=== PATIENT | female | born 1975 | race Two or more races ===

== ENCOUNTER 2018-07-21 14:24 | Emergency (ER) | payer OTHER ==
[~2018-07-21] VITALS: Ht 161.3 cm; Wt 95.3 kg
[~2018-07-21 14:24] MED LIST: ATOR40TA59 PO; INSU100I13 SQ; LISI1TAB7 PO; MAG355OR11 PO
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
[2018-07-21 17:56] VITALS: BP 144/81
== END 2018-07-21 18:14 | disposition home or self-care (01) ==
LOC: ER 14:24
DX: S29.012A Strain of muscle and tendon of back wall of thorax, initial encounter (principal); M54.2 Cervicalgia; E11.9 Type 2 diabetes mellitus without complications; E78.00 Pure hypercholesterolemia, unspecified; I10 Essential (primary) hypertension; Z90.49 Acquired absence of other specified parts of digestive tract; Z90.710 Acquired absence of both cervix and uterus; Z91.030 Bee allergy status; Z88.5 Allergy status to narcotic agent; Z91.013 Allergy to seafood; V49.49XA Driver injured in collision with other motor vehicles in traffic accident, initial encounter; Y93.I9 Activity, other involving external motion; Y92.488 Other paved roadways as the place of occurrence of the external cause; Y99.8 Other external cause status
CPT/HCPCS: 72072; 72125; 99284-25

== ENCOUNTER 2021-02-06 18:44 | Inpatient (IN) | payer SELFPAY ==
[~2021-02-06] VITALS: Ht 162.6 cm; Wt 89.3 kg
[~2021-02-06 18:44] MED LIST changes: +LISI1TAB20 PO; -LISI1TAB7 PO
[2021-02-06] MEDS ORDERED: ONDANSETRON ODT 4 MG TAB.RAPDIS. PO ONE (23:30)
[2021-02-07] MEDS ORDERED: IV NORMAL SALINE 1000ML BAG 1,000 ML IV ONE ×2 (02:30→06:30)
[2021-02-07] MEDS ORDERED: HALOPERIDOL LACTATE 5 MG/ML VIAL. IM ONE (02:30)
[2021-02-07 04:02] LABS: BASO % 0 % (0-3); EOS % 0 % (0-3); HEMATOCRIT 48.4 % (36.0-47.0); HEMOGLOBIN 15.6 g/dL (12.0-15.5); LYMPH # 0.8 x10^3/uL (1.0-4.8); LYMPH % 10 % (24-48); MEAN CORPUSCULAR HEMOGLOBIN 30 pg (25-35); MEAN CORPUSCULAR HGB CONC 32 g/dL (31-37); MEAN CORPUSCULAR VOLUME 93 fL (79-100); MONO # 0.4 x10^3/uL (0.0-1.1); MONO % 5 % (0-9); NEUT # 6.4 x10^3/uL (1.8-7.7); NEUT % 85 % (31-73); PLATELET COUNT 208 x10^3/uL (140-400); RED BLOOD COUNT 5.21 x10^6/uL (3.50-5.40); RED CELL DISTRIBUTION WIDTH 13.7 % (11.5-14.5); WHITE BLOOD COUNT 7.5 x10^3/uL (4.0-11.0)
--- NOTE | 2021-02-07 04:07 | EKG ---
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
[2021-02-07] MEDS ORDERED: HYDROmorphone 2 MG/ML VIAL IVP ONE (04:30)
[2021-02-07 05:30] LABS: ALBUMIN 4.1 g/dL (3.4-5.0); CALCIUM 8.9 mg/dL (8.5-10.1); CREATININE 1.2 mg/dL (0.6-1.0); GFR 48.6; TOTAL BILIRUBIN 0.4 mg/dL (0.2-1.0); TOTAL PROTEIN 8.4 g/dL (6.4-8.2)
[2021-02-07 05:31] LABS: POTASSIUM 4.5 mmol/L (3.5-5.1)
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
[2021-02-07] MEDS ORDERED: POTASSIUM CHLORIDE 10MEQ 100 ML IV PRN ×3 (06:00)
[2021-02-07] MEDS ORDERED: INSULIN REGULAR VIAL 100 UNIT in IV NORMAL SALINE 100ML 100 ML IV PRN (06:00)
[2021-02-07] MEDS ORDERED: INSULIN,REGULAR 100 UNIT DRIP 100 ML IV ONE (06:30)
[2021-02-07 07:00] VITALS: BP 154/77
[2021-02-07 07:04] LABS: ISTAT BE VENOUS -5 mmol/L (0-3); ISTAT HCO3 VEN 21 mmol/L (24-28); ISTAT PCO2 VEN 38 mmHg (41-51); ISTAT PH VEN 7.34 (7.32-7.42); ISTAT PO2 VEN 115 mmHg (20-40); ISTAT SAT O2 VEN 98 %; ISTAT TCO2 VEN 22 mmol/L (21-32)
--- NOTE | 2021-02-07 08:43 | PDOC1 ---
History and Physical Date of Service: DOS: DATE: 02/07/21 TIME: 08:39 Chief Complaint: Chief Complain: Shortness of breath History of Present Illness: HPI: 46 year old female who presents with nausea/vomiting since 7 AM yesterday morning. Patient states that her recently tested positive for Covid. She states that he "coughed in my face because he thought it was funny." She reports subjective fevers and chills and nausea/vomiting. Denies sore throat, cough, shortness of breath. No chest pain. Does have some upper abdominal discomfort after vomiting, that she attributes to muscular strain. She is not vaccinated for Covid. Past Medical/Surgical History: PMH/PSH: Past Medical History: Diabetes-Type II, High Cholesterol, Hypertension Past Surgical History: Cholecystectomy, Hysterectomy, breast augmentation, abdominoplasty, right knee, LT [facility] Allergies: Allergies: Coded Allergies: venom-honey bee (Verified Allergy, Severe, Shortness of Air, 04/21/15) oxycodone (Unverified Allergy, Intermediate, Itching, 04/21/15) shellfish derived (Unverified Allergy, Intermediate, Itching, 04/21/15) Family History: Family History: Reviewed with no relevant findings Social History: Social History: Smoking Status: Never Smoker Alcohol Use: Occasionally Drug Use: None Current Medications: Current Medications Current Medications Ondansetron HCl (Zofran Odt) 4 mg 1X ONCE PO Last administered on 02/06/21at 23:57; Start 02/06/21 at 23:30; Stop 02/06/21 at 23:31; Status DC Haloperidol Lactate (Haldol Inj) 2.5 mg 1X ONCE IM ; Start 02/07/21 at 02:30; Stop 02/07/21 at 03:56; Status DC Sodium Chloride 1,000 ml @ 1,000 mls/hr 1X ONCE IV Last administered on 02/07/21at 03:41; Start 02/07/21 at 02:30; Stop 02/07/21 at 03:29; Status DC Hydromorphone HCl (Dilaudid) 1 mg 1X ONCE IVP Last administered on 02/07/21at 04:13; Start 02/07/21 at 04:30; Stop 02/07/21 at 04:31; Status DC Sodium Chloride 1,000 ml @ 1,000 mls/hr 1X ONCE IV ; Start 02/07/21 at 06:30; Stop 02/07/21 at 07:29; Status DC Insulin Human Regular 100 unit/ Sodium Chloride 101 ml @ 0 mls/hr CONT PRN PRN IV PER PROTOCOL; Start 02/07/21 at 06:00 Potassium Chloride/Water 100 ml @ 100 mls/hr PRN Q1HR PRN IV SEE COMMENTS; Start 02/07/21 at 06:00 Potassium Chloride/Water 100 ml @ 100 mls/hr PRN Q1HR PRN IV SEE COMMENTS; Start 02/07/21 at 06:00 Potassium Chloride/Water 100 ml @ 100 mls/hr PRN Q1HR PRN IV SEE COMMENTS; Start 02/07/21 at 06:00 Insulin Human Regular 100 ml @ 10 mls/hr 1X ONCE IV ; Start 02/07/21 at 06:30; Stop 02/07/21 at 16:29 Active Scripts Active Reported Lantus Solostar (Insulin Glargine,Hum.rec.anlog) 100 Unit/1 Ml Insuln.pen 15 Unit SQ QHS Maalox Advanced Suspension (Mag Hydrox/Al Hydrox/Simeth) 770 Ml Oral.susp 770 Ml PO PRN PRN Lisinopril-Hctz 20-25 Mg Tab (Lisinopril/Hydrochlorothiazide) 1 Each Tablet 1 Tab PO DAILY Atorvastatin Calcium 40 Mg Tablet 40 Mg PO HS ROS: Review of Systems Review of System REVIEW OF SYSTEMS: GENERAL: Denies weakness SKIN: No bruising, hair changes or rashes. EYES: No blurred, double or loss of vision. NOSE AND THROAT: No history of nosebleeds, hoarseness or sore throat. HEART: No history of palpitations, chest pain or shortness of breath on exertion. LUNGS: Denies cough, hemoptysis, wheezing or shortness of breath. GASTROINTESTINAL: Denies changes in appetite, nausea, vomiting, diarrhea or constipation. GENITOURINARY: No history of frequency, urgency, hesitancy or nocturia. NEUROLOGIC: Denies history of numbness, tingling, or tremor. PSYCHIATRIC: No history of panic, anxiety or depression. ENDOCRINE: No history of heat or cold intolerance, polyuria or polydipsia. EXTREMITIES: Denies joint pain, pain on walking or stiffness. Physical Exam: Vital Signs: Vital Signs Date Time Temp Pulse Resp B/P (MAP) Pulse Ox O2 Delivery O2 Flow Rate FiO2 02/07/21 07:00 97.7 97 20 154/77 (102) Room Air 97.7 02/07/21 06:05 90 Physcial Exam: General: Well developed, well nourished, no acute distress, obese HEENT: Pupils equally round and reactive to light, EOMI, no discharge, normal conjunctiva Neck: Supple, no nuchal rigidity, no JVD, trachea midline, no tenderness Cardiac: RRR, no murmurs, no gallops, no rubs Chest/Lungs: CTAB, no wheeze, no rhonchi, no crackles Abdomen: soft, non-distended, no guarding, no peritoneal signs, non-tender Back: No tenderness Extremities: no edema, pulses intact, non-tender,capillary refill <3 sec bilateral upper and lower extremities, Neuro: Alert and oriented x 4, no focal deficits, normal speech Labs: Labs: Laboratory Tests Test 02/06/21 23:58 02/07/21 03:25 02/07/21 06:40 02/07/21 07:00 SARS-CoV-2 Antigen (Rapid) Positive (NEGATIVE) White Blood Count 7.5 x10^3/uL (4.0-11.0) Red Blood Count 5.21 x10^6/uL (3.50-5.40) Hemoglobin 15.6 g/dL (12.0-15.5) Hematocrit 48.4 % (36.0-47.0) Mean Corpuscular Volume 93 fL (79-100) Mean Corpuscular Hemoglobin 30 pg (25-35) Mean Corpuscular Hemoglobin Concent 32 g/dL (31-37) Red Cell Distribution Width 13.7 % (11.5-14.5) Platelet Count 208 x10^3/uL (140-400) Neutrophils (%) (Auto) 85 % (31-73) Lymphocytes (%) (Auto) 10 % (24-48) Monocytes (%) (Auto) 5 % (0-9) Eosinophils (%) (Auto) 0 % (0-3) Basophils (%) (Auto) 0 % (0-3) Neutrophils # (Auto) 6.4 x10^3/uL (1.8-7.7) Lymphocytes # (Auto) 0.8 x10^3/uL (1.0-4.8) Monocytes # (Auto) 0.4 x10^3/uL (0.0-1.1) Eosinophils # (Auto) 0.0 x10^3/uL (0.0-0.7) Basophils # (Auto) 0.0 x10^3/uL (0.0-0.2) Sodium Level 128 mmol/L (136-145) Potassium Level 4.5 mmol/L (3.5-5.1) Chloride Level 95 mmol/L (98-107) Carbon Dioxide Level 16 mmol/L (21-32) Anion Gap 17 (6-14) Blood Urea Nitrogen 17 mg/dL (7-20) Creatinine 1.2 mg/dL (0.6-1.0) Estimated GFR (Cockcroft-Gault) 48.6 BUN/Creatinine Ratio 14 (6-20) Glucose Level 353 mg/dL (70-99) Calcium Level 8.9 mg/dL (8.5-10.1) Total Bilirubin 0.4 mg/dL (0.2-1.0) Aspartate Amino Transf (AST/SGOT) 29 U/L (15-37) Alanine Aminotransferase (ALT/SGPT) 25 U/L (14-59) Alkaline Phosphatase 74 U/L (46-116) Troponin I Quantitative < 0.017 ng/mL (0.000-0.055) Total Protein 8.4 g/dL (6.4-8.2) Albumin 4.1 g/dL (3.4-5.0) Albumin/Globulin Ratio 1.0 (1.0-1.7) Lipase 55 U/L (73-393) Phosphorus Level 3.9 mg/dL (2.6-4.7) Magnesium Level 2.1 mg/dL (1.8-2.4) Bedside Venous pH 7.34 (7.32-7.42) Bedside Venous pCO2 38 mmHg (41-51) Bedside Venous pO2 115 mmHg (20-40) Venous Blood HCO3 21 mmol/L (24-28) POC Venous O2 Saturation (Orion) 98 % Bedside FiO2 21.0 Test 02/07/21 07:52 Glucose (Fingerstick) 356 mg/dL (70-99) Laboratory Tests Test 02/06/21 23:58 7/31/21 03:25 02/07/21 06:40 02/07/21 07:00 SARS-CoV-2 Antigen (Rapid) Positive (NEGATIVE) White Blood Count 7.5 x10^3/uL (4.0-11.0) Red Blood Count 5.21 x10^6/uL (3.50-5.40) Hemoglobin 15.6 g/dL (12.0-15.5) Hematocrit 48.4 % (36.0-47.0) Mean Corpuscular Volume 93 fL (79-100) Mean Corpuscular Hemoglobin 30 pg (25-35) Mean Corpuscular Hemoglobin Concent 32 g/dL (31-37) Red Cell Distribution Width 13.7 % (11.5-14.5) Platelet Count 208 x10^3/uL (140-400) Neutrophils (%) (Auto) 85 % (31-73) Lymphocytes (%) (Auto) 10 % (24-48) Monocytes (%) (Auto) 5 % (0-9) Eosinophils (%) (Auto) 0 % (0-3) Basophils (%) (Auto) 0 % (0-3) Neutrophils # (Auto) 6.4 x10^3/uL (1.8-7.7) Lymphocytes # (Auto) 0.8 x10^3/uL (1.0-4.8) Monocytes # (Auto) 0.4 x10^3/uL (0.0-1.1) Eosinophils # (Auto) 0.0 x10^3/uL (0.0-0.7) Basophils # (Auto) 0.0 x10^3/uL (0.0-0.2) Sodium Level 128 mmol/L (136-145) Potassium Level 4.5 mmol/L (3.5-5.1) Chloride Level 95 mmol/L (98-107) Carbon Dioxide Level 16 mmol/L (21-32) Anion Gap 17 (6-14) Blood Urea Nitrogen 17 mg/dL (7-20) Creatinine 1.2 mg/dL (0.6-1.0) Estimated GFR (Cockcroft-Gault) 48.6 BUN/Creatinine Ratio 14 (6-20) Glucose Level 353 mg/dL (70-99) Calcium Level 8.9 mg/dL (8.5-10.1) Total Bilirubin 0.4 mg/dL (0.2-1.0) Aspartate Amino Transf (AST/SGOT) 29 U/L (15-37) Alanine Aminotransferase (ALT/SGPT) 25 U/L (14-59) Alkaline Phosphatase 74 U/L (46-116) Troponin I Quantitative < 0.017 ng/mL (0.000-0.055) Total Protein 8.4 g/dL (6.4-8.2) Albumin 4.1 g/dL (3.4-5.0) Albumin/Globulin Ratio 1.0 (1.0-1.7) Lipase 55 U/L (73-393) Phosphorus Level 3.9 mg/dL (2.6-4.7) Magnesium Level 2.1 mg/dL (1.8-2.4) Bedside Venous pH 7.34 (7.32-7.42) Bedside Venous pCO2 38 mmHg (41-51) Bedside Venous pO2 115 mmHg (20-40) Venous Blood HCO3 21 mmol/L (24-28) POC Venous O2 Saturation (Orion) 98 % Bedside FiO2 21.0 Test 02/07/21 07:52 Glucose (Fingerstick) 356 mg/dL (70-99) Images: Images No recent images to review Assessment/Plan Assessment/Plan COVID-19 positive infection Tractable nausea vomiting DKA Anion gap metabolic acidosis Acute electrolyte derangementhyponatremia, hypochloremia due to volume depletion Hyperglycemia uncontrolled BOB due to vasomotor nephropathy Erythrocytosis Admit to hospitalist for further services ABG on admission pending urine and blood ketones Pending plasma osmolarity Continue serial inspections and examination for sources that caused ketoacidotic state Continue IV insulin starting at 0.1 units per kg When glucose is less than 200, AG is closed, patient able to eat, and HCO3 greater than 15, then transition with subcu insulin 0.1 units/kg every 2 hours for at least 2 hours Continue IV fluids of 1 to 1.5 L/h until a total of 5 L is replenished Switch to one half NS at half the rate if NA is normal or elevated As needed D50 W or add D5 to IV fluids if Accu-Cheks are less than 200 Maintain potassium between 3.5-5, if potassium falls below 3.3, stop insulin and add 40 mEq/h of potassium Maintained p.o. 3 greater than 1.0 If arterial pH is below 6.9, give 100 mEq of sodium bicarb +20 mEq of potassium Every 2-4 hours BMP and a be checked until stable Every hour Accu-Cheks while on insulin O2 supplementation if patient develops hypoxia SCD for DVT prophylaxis Protonix GI prophylaxis ADA diet Full code Discussed with RN and SW Disposition inpatient management as above Surrogate decision maker is Brian Whitmore Justifications for Admission Other Justification SRIKANTH DAVIS MD Feb 07, 2021 08:43
[2021-02-07] MEDS ORDERED: DEXTROSE 50% 25 GM / 50ML DISP.SYRIN. IV PRN ×2 (08:45→17:00)
[2021-02-07] MEDS ORDERED: DOCUSATE SODIUM 100 MG CAPSULE. PO PRN (08:45)
[2021-02-07] MEDS: IV NORMAL SALINE 1000ML BAG 1,000 ML IV SCH ×4 (08:45→22:52)
[2021-02-07] MEDS ORDERED: SENNOSIDES 8.6 MG TABLET PO PRN (08:45)
[2021-02-07 09:46] LABS: CALCIUM 8.6 mg/dL (8.5-10.1); CREATININE 1.4 mg/dL (0.6-1.0); GFR 40.7; POTASSIUM 4.3 mmol/L (3.5-5.1)
[2021-02-07] MEDS ORDERED: INSU100I17 SQ (10:52)
[2021-02-07] MEDS ORDERED: LISI-517 PO (10:52)
[2021-02-07 11:00] VITALS: BP 126/59
[2021-02-07] MEDS: PROCHLORPERAZINE 10 MG/2 ML VIAL. IV PRN ×3 (11:34→23:57)
[2021-02-07 14:52] VITALS: BP 104/53
[2021-02-07 15:36] LABS: CALCIUM 7.8 mg/dL (8.5-10.1); CREATININE 1.3 mg/dL (0.6-1.0); GFR 44.3; POTASSIUM 3.8 mmol/L (3.5-5.1)
[2021-02-07] MEDS: INSULIN GLARGINE SYRINGE. SQ SCH (17:59)
[2021-02-07 19:00] VITALS: BP 194/95
[2021-02-07] MEDS: ONDANSETRON PF 4 MG/2 ML VIAL. IVP PRN ×2 (19:36→20:01)
[2021-02-07] MEDS ORDERED: ONDANSETRON PF 4 MG/2 ML VIAL. IVP ONE (20:00)
[2021-02-07] MEDS: INSULIN LISPRO 300 UNITS/3 ML VIAL. SQ SCH (20:05)
[2021-02-07 20:53] LABS: CALCIUM 8.2 mg/dL (8.5-10.1); CREATININE 1.1 mg/dL (0.6-1.0); GFR 53.7; POTASSIUM 3.9 mmol/L (3.5-5.1)
[2021-02-07 23:00] VITALS: BP 170/84
[2021-02-07] MEDS: ACETAMINOPHEN 325 MG TABLET. PO PRN (23:57)
[2021-02-08] VITALS (11 sets, daily range): BP systolic 146–207; BP diastolic 70–97
[2021-02-08] MEDS: METOCLOPRAMIDE HCL 10 MG/2 ML VIAL. IVP PRN ×3 (01:04→16:58)
[2021-02-08] MEDS ORDERED: ACETAMINOPHEN 650 MG SUPP.RECT. PR PRN (01:45)
[2021-02-08] MEDS: ONDANSETRON PF 4 MG/2 ML VIAL. IVP PRN ×2 (03:44→20:08)
[2021-02-08] MEDS: IV NORMAL SALINE 1000ML BAG 1,000 ML IV SCH (04:05)
[2021-02-08] MEDS: INSULIN LISPRO 300 UNITS/3 ML VIAL. SQ SCH ×6 (04:08→20:06)
[2021-02-08 04:17] LABS: BILIRUBIN,URINE NEGATIVE (NEG); CLARITY,URINE CLEAR; COLOR,URINE YELLOW; NITRITE,URINE NEGATIVE (NEG); PH,URINE 5.5 (<5.0-8.0); PROTEIN,URINE 100 mg/dL (NEG-TRACE); UROBILINOGEN,URINE 0.2 mg/dL (0.2 mg/dL)
[2021-02-08] MEDS: LABETALOL 20 MG/4 ML DISP.SYRIN. IVP PRN ×5 (04:20→20:07)
[2021-02-08 04:35] LABS: BACTERIA,URINE FEW /HPF (0-FEW); RBC,URINE 20-40 /HPF (0-2)
[2021-02-08] MEDS: PROCHLORPERAZINE 10 MG/2 ML VIAL. IV PRN ×3 (07:41→21:08)
[2021-02-08 09:46] LABS: BASO % 0 % (0-3); EOS % 0 % (0-3); HEMOGLOBIN 14.3 g/dL (12.0-15.5); LYMPH % 16 % (24-48); MEAN CORPUSCULAR HEMOGLOBIN 30 pg (25-35); MEAN CORPUSCULAR HGB CONC 34 g/dL (31-37); MEAN CORPUSCULAR VOLUME 88 fL (79-100); MONO # 0.5 x10^3/uL (0.0-1.1); MONO % 8 % (0-9); NEUT # 4.6 x10^3/uL (1.8-7.7); NEUT % 75 % (31-73); PLATELET COUNT 203 x10^3/uL (140-400); RED BLOOD COUNT 4.77 x10^6/uL (3.50-5.40); RED CELL DISTRIBUTION WIDTH 13.3 % (11.5-14.5); WHITE BLOOD COUNT 6.1 x10^3/uL (4.0-11.0)
[2021-02-08 09:49] LABS: CALCIUM 7.8 mg/dL (8.5-10.1); PHOSPHORUS 2.4 mg/dL (2.6-4.7); POTASSIUM 3.8 mmol/L (3.5-5.1)
--- NOTE | 2021-02-08 09:53 | PDOC ---
[facility] PROGRESS NOTE Date of Service DOS: DATE: 02/08/21 TIME: 09:50 Chief Complaint Chief Complaint COVID-19 positive infection Tractable nausea vomiting DKA Anion gap metabolic acidosis Acute electrolyte derangementhyponatremia, hypochloremia due to volume depletion Hyperglycemia uncontrolled BOB due to vasomotor nephropathy Erythrocytosis 7 for diabetic gastroparesis Continue IV fluids and advance diet as tolerated. IV Compazine or Reglan for nausea ABG on admission pending urine and blood ketones Continue sliding-scale and Accu-Cheks every 4 hours When glucose is less than 200, AG is closed, patient able to eat, and HCO3 greater than 15, then transition with subcu insulin 0.1 units/kg every 2 hours for at least 2 hours Switch to one half NS at half the rate if NA is normal or elevated As needed D50 W or add D5 to IV fluids if Accu-Cheks are less than 200 Maintain potassium between 3.5-5, if potassium falls below 3.3, stop insulin and add 40 mEq/h of potassium Maintained p.o. 3 greater than 1.0 If arterial pH is below 6.9, give 100 mEq of sodium bicarb +20 mEq of potassium Every 2-4 hours BMP and a be checked until stable Every hour Accu-Cheks while on insulin O2 supplementation if patient develops hypoxia SCD for DVT prophylaxis Protonix GI prophylaxis ADA diet Full code Discussed with RN and SW Disposition inpatient management as above Surrogate decision maker is Brian Whitmore History of Present Illness History of Present Illness 46 year old female who presents with nausea/vomiting since 7 AM yesterday morning. Patient states that her recently tested positive for Covid. She states that he "coughed in my face because he thought it was funny." She reports subjective fevers and chills and nausea/vomiting. Denies sore throat, cough, shortness of breath. No chest pain. Does have some upper abdominal discomfort after vomiting, that she attributes to muscular strain. She is not vaccinated for Covid. 02/08/2021 No acute events overnight. Patient seen and examined bedside and resting comfortably. Continues to complain of nausea not able to tolerate any diet at this time. Saturating 98% on room air. Patient's chart, labs, images were reviewed and discussed with RN Vitals/I&O Vitals/I&O: Vital Signs Date Time Temp Pulse Resp B/P (MAP) Pulse Ox O2 Delivery O2 Flow Rate FiO2 02/08/21 09:17 87 183/93 (123) 02/08/21 07:30 99.0 24 98 Room Air 99.0 02/08/21 03:00 94.0 I & O 02/07/21 02/07/21 02/08/21 15:00 23:00 07:00 Intake Total 1000 ml 1000 ml 0 ml Output Total 852 ml Balance 1000 ml 1000 ml -852 ml Physical Exam General: Alert, Oriented X3, Cooperative Heart: Regular rate Lungs: Clear Abdomen: Normal bowel sounds Extremities: No clubbing, No edema Skin: No rashes, No significant lesion Labs Labs: Laboratory Tests Test 02/07/21 10:35 02/07/21 11:27 02/07/21 12:38 02/07/21 13:45 Glucose (Fingerstick) 366 mg/dL (70-99) 340 mg/dL (70-99) 319 mg/dL (70-99) 279 mg/dL (70-99) Test 02/07/21 14:39 02/07/21 15:00 02/07/21 15:45 02/07/21 16:40 Glucose (Fingerstick) 213 mg/dL (70-99) 166 mg/dL (70-99) 127 mg/dL (70-99) Sodium Level 139 mmol/L (136-145) Potassium Level 3.8 mmol/L (3.5-5.1) Chloride Level 104 mmol/L (98-107) Carbon Dioxide Level 26 mmol/L (21-32) Anion Gap 9 (6-14) Blood Urea Nitrogen 24 mg/dL (7-20) Creatinine 1.3 mg/dL (0.6-1.0) Estimated GFR (Cockcroft-Gault) 44.3 Glucose Level 194 mg/dL (70-99) Calcium Level 7.8 mg/dL (8.5-10.1) Test 02/07/21 19:39 02/07/21 20:30 02/07/21 23:51 02/08/21 03:40 Glucose (Fingerstick) 256 mg/dL (70-99) 260 mg/dL (70-99) Sodium Level 135 mmol/L (136-145) Potassium Level 3.9 mmol/L (3.5-5.1) Chloride Level 98 mmol/L (98-107) Carbon Dioxide Level 25 mmol/L (21-32) Anion Gap 12 (6-14) Blood Urea Nitrogen 20 mg/dL (7-20) Creatinine 1.1 mg/dL (0.6-1.0) Estimated GFR (Cockcroft-Gault) 53.7 Glucose Level 264 mg/dL (70-99) Calcium Level 8.2 mg/dL (8.5-10.1) Urine Collection Type Unknown Urine Color Yellow Urine Clarity Clear Urine pH 5.5 (<5.0-8.0) Urine Specific [place] 1.020 (1.000-1.030) Urine Protein 100 mg/dL (NEG-TRACE) Urine Glucose (UA) >=1000 mg/dL (NEG) Urine Ketones (Stick) >=80 mg/dL (NEG) Urine Blood Moderate (NEG) Urine Nitrite Negative (NEG) Urine Bilirubin Negative (NEG) Urine Urobilinogen Dipstick 0.2 mg/dL (0.2 mg/dL) Urine Leukocyte Esterase Negative (NEG) Urine RBC 20-40 /HPF (0-2) Urine WBC 1-4 /HPF (0-4) Urine Squamous Epithelial Cells Few /LPF Urine Bacteria Few /HPF (0-FEW) Test 02/08/21 03:51 02/08/21 07:47 Glucose (Fingerstick) 247 mg/dL (70-99) 225 mg/dL (70-99) Assessment and Plan Assessmemt and Plan Problems Medical Problems: (1) Ketoacidosis Status: Acute Comment Review of Relevant I have reviewed the following items mazin (where applicable) has been applied. Medications: Current Medications Medications (Trade) Dose Ordered Sig/Pepe Route PRN Reason Start Time Stop Time Status Last Admin Dose Admin Insulin Glargine (Lantus Syringe) 5 unit BID SQ 02/07/21 17:00 02/07/21 17:59 Insulin Human Lispro (HumaLOG) 0-7 UNITS Q4HRS SQ 02/07/21 20:00 02/08/21 00:50 DC 02/08/21 00:00 Ondansetron HCl (Zofran) 4 mg 1X ONCE IVP 02/07/21 20:00 02/07/21 20:07 DC 02/07/21 20:06 Insulin Human Lispro (HumaLOG) 0-9 UNITS Q4HRS SQ 02/08/21 04:00 02/08/21 08:04 Metoclopramide HCl (Reglan Vial) 10 mg PRN Q6HRS PRN IVP NAUSEA/VOMITING 3RD CHOICE 02/08/21 00:45 02/08/21 01:04 Labetalol HCl (Normodyne Iv Push) 10 mg PRN Q2HR PRN IVP HYPERTENSION 02/08/21 00:45 02/08/21 07:55 Justifications for Admission Other Justification SRIKANTH DAVIS MD Feb 08, 2021 09:53
[2021-02-08] MEDS: INSULIN GLARGINE SYRINGE. SQ SCH ×2 (10:24→21:08)
[2021-02-08] MEDS: ENALAPRILAT 1.25 MG/ML VIAL. IVP SCH (17:00)
[2021-02-08] MEDS: ATORVASTATIN CALCIUM 40 MG TABLET. PO SCH (21:05)
[2021-02-08] MEDS: CARVEDILOL 6.25 MG TABLET. PO SCH (21:05)
[2021-02-09] VITALS (7 sets, daily range): BP systolic 137–210; BP diastolic 65–90
[2021-02-09] MEDS: METOCLOPRAMIDE HCL 10 MG/2 ML VIAL. IVP PRN ×3 (00:03→21:15)
[2021-02-09] MEDS: ENALAPRILAT 1.25 MG/ML VIAL. IVP SCH ×3 (00:09→13:42)
[2021-02-09] MEDS: INSULIN LISPRO 300 UNITS/3 ML VIAL. SQ SCH ×9 (00:11→20:00)
[2021-02-09 01:08] LABS: HEMOGLOBIN A1C 6.6 % (4.8-5.6)
[2021-02-09] MEDS: PROCHLORPERAZINE 10 MG/2 ML VIAL. IV PRN ×2 (04:05→14:57)
[2021-02-09] MEDS: LABETALOL 20 MG/4 ML DISP.SYRIN. IVP PRN (04:13)
[2021-02-09] MEDS: ONDANSETRON PF 4 MG/2 ML VIAL. IVP PRN ×2 (05:48→12:35)
[2021-02-09] MEDS: IV NORMAL SALINE 1000ML BAG 1,000 ML IV SCH ×2 (07:36→14:59)
[2021-02-09] MEDS ORDERED: LISINOPRIL 5 MG TABLET. PO SCH (09:00)
[2021-02-09] MEDS: CARVEDILOL 6.25 MG TABLET. PO SCH ×2 (09:48→17:42)
[2021-02-09] MEDS: ENOXAPARIN 40 MG/0.4 ML SYRINGE. SQ SCH ×2 (09:49→21:16)
[2021-02-09 09:57] LABS: BASO % 0 % (0-3); EOS % 0 % (0-3); HEMATOCRIT 41.6 % (36.0-47.0); HEMOGLOBIN 14.2 g/dL (12.0-15.5); LYMPH # 0.7 x10^3/uL (1.0-4.8); LYMPH % 13 % (24-48); MEAN CORPUSCULAR HEMOGLOBIN 30 pg (25-35); MEAN CORPUSCULAR HGB CONC 34 g/dL (31-37); MEAN CORPUSCULAR VOLUME 87 fL (79-100); MONO # 0.5 x10^3/uL (0.0-1.1); MONO % 9 % (0-9); NEUT # 4.4 x10^3/uL (1.8-7.7); NEUT % 79 % (31-73); PLATELET COUNT 198 x10^3/uL (140-400); RED BLOOD COUNT 4.78 x10^6/uL (3.50-5.40); RED CELL DISTRIBUTION WIDTH 13.2 % (11.5-14.5); WHITE BLOOD COUNT 5.6 x10^3/uL (4.0-11.0)
[2021-02-09] MEDS: INSULIN GLARGINE SYRINGE. SQ SCH ×2 (10:14→21:18)
[2021-02-09 10:26] LABS: CREATININE 0.9 mg/dL (0.6-1.0); GFR 67.7; MAGNESIUM 2.1 mg/dL (1.8-2.4); POTASSIUM 3.5 mmol/L (3.5-5.1)
--- NOTE | 2021-02-09 13:07 | PDOC ---
[facility] PROGRESS NOTE Date of Service DOS: DATE: 02/09/21 TIME: 13:04 Chief Complaint Chief Complaint COVID-19 positive infection Tractable nausea vomiting DKA Anion gap metabolic acidosis Acute electrolyte derangementhyponatremia, hypochloremia due to volume depletion Hyperglycemia uncontrolled BOB due to vasomotor nephropathy Erythrocytosis 7 for diabetic gastroparesis Continue IV fluids and advance diet as tolerated. IV Compazine or Reglan for nausea ABG on admission pending urine and blood ketones Continue sliding-scale and Accu-Cheks every 4 hours When glucose is less than 200, AG is closed, patient able to eat, and HCO3 greater than 15, then transition with subcu insulin 0.1 units/kg every 2 hours for at least 2 hours Switch to one half NS at half the rate if NA is normal or elevated As needed D50 W or add D5 to IV fluids if Accu-Cheks are less than 200 Maintain potassium between 3.5-5, if potassium falls below 3.3, stop insulin and add 40 mEq/h of potassium Maintained p.o. 3 greater than 1.0 If arterial pH is below 6.9, give 100 mEq of sodium bicarb +20 mEq of potassium Every 2-4 hours BMP and a be checked until stable Every hour Accu-Cheks while on insulin O2 supplementation if patient develops hypoxia SCD for DVT prophylaxis Protonix GI prophylaxis ADA diet Full code Discussed with RN and SW Disposition inpatient management as above Surrogate decision maker is Brian Whitmore History of Present Illness History of Present Illness 46 year old female who presents with nausea/vomiting since 7 AM yesterday morning. Patient states that her recently tested positive for Covid. She states that he "coughed in my face because he thought it was funny." She reports subjective fevers and chills and nausea/vomiting. Denies sore throat, cough, shortness of breath. No chest pain. Does have some upper abdominal discomfort after vomiting, that she attributes to muscular strain. She is not vaccinated for Covid. 02/08/2021 No acute events overnight. Patient seen and examined bedside and resting comfortably. Continues to complain of nausea not able to tolerate any diet at this time. Saturating 98% on room air. Patient's chart, labs, images were reviewed and discussed with RN 02/09/2021: Afebrile, currently breathing on room air. Still with complaints of nausea and vomiting x3 today. States that she has history of similar symptoms that have been mildly improved with IV Dilaudid. Discussed with patient that I will provide IV Dilaudid to help with her nausea, but she will not discharged on this medication. Will obtain 6-minute walk to evaluate oxygen requirements. Upon discharge, I recommend self quarantine for 10 days for resolution of her symptoms. Discussed with patient that she will discharge tomorrow. Vitals/I&O Vitals/I&O: Vital Signs Date Time Temp Pulse Resp B/P (MAP) Pulse Ox O2 Delivery O2 Flow Rate FiO2 02/09/21 11:00 98.9 78 18 162/76 (104) 97 Room Air 98.9 I & O 02/08/21 02/08/21 02/09/21 15:00 23:00 07:00 Intake Total 460 ml 240 ml Balance 460 ml 240 ml Physical Exam General: Alert, Oriented X3, Cooperative Heart: Regular rate Lungs: Clear Abdomen: Normal bowel sounds Extremities: No clubbing, No edema Skin: No rashes, No significant lesion Labs Labs: Laboratory Tests Test 02/08/21 16:41 02/08/21 19:40 02/08/21 23:52 02/09/21 04:09 Glucose (Fingerstick) 273 mg/dL (70-99) 246 mg/dL (70-99) 268 mg/dL (70-99) 203 mg/dL (70-99) Test 02/09/21 07:28 02/09/21 09:35 02/09/21 11:38 Glucose (Fingerstick) 209 mg/dL (70-99) 225 mg/dL (70-99) White Blood Count 5.6 x10^3/uL (4.0-11.0) Red Blood Count 4.78 x10^6/uL (3.50-5.40) Hemoglobin 14.2 g/dL (12.0-15.5) Hematocrit 41.6 % (36.0-47.0) Mean Corpuscular Volume 87 fL (79-100) Mean Corpuscular Hemoglobin 30 pg (25-35) Mean Corpuscular Hemoglobin Concent 34 g/dL (31-37) Red Cell Distribution Width 13.2 % (11.5-14.5) Platelet Count 198 x10^3/uL (140-400) Neutrophils (%) (Auto) 79 % (31-73) Lymphocytes (%) (Auto) 13 % (24-48) Monocytes (%) (Auto) 9 % (0-9) Eosinophils (%) (Auto) 0 % (0-3) Basophils (%) (Auto) 0 % (0-3) Neutrophils # (Auto) 4.4 x10^3/uL (1.8-7.7) Lymphocytes # (Auto) 0.7 x10^3/uL (1.0-4.8) Monocytes # (Auto) 0.5 x10^3/uL (0.0-1.1) Eosinophils # (Auto) 0.0 x10^3/uL (0.0-0.7) Basophils # (Auto) 0.0 x10^3/uL (0.0-0.2) Sodium Level 133 mmol/L (136-145) Potassium Level 3.5 mmol/L (3.5-5.1) Chloride Level 99 mmol/L (98-107) Carbon Dioxide Level 24 mmol/L (21-32) Anion Gap 10 (6-14) Blood Urea Nitrogen 12 mg/dL (7-20) Creatinine 0.9 mg/dL (0.6-1.0) Estimated GFR (Cockcroft-Gault) 67.7 Glucose Level 226 mg/dL (70-99) Calcium Level 8.0 mg/dL (8.5-10.1) Magnesium Level 2.1 mg/dL (1.8-2.4) Assessment and Plan Assessmemt and Plan Problems Medical Problems: (1) Ketoacidosis Status: Acute Comment Review of Relevant I have reviewed the following items mazin (where applicable) has been applied. Medications: Current Medications Medications (Trade) Dose Ordered Sig/Pepe Route PRN Reason Start Time Stop Time Status Last Admin Dose Admin Enalaprilat (Vasotec Inj) 0.625 mg Q6HRS IVP 02/08/21 16:15 02/09/21 05:45 Insulin Glargine (Lantus Syringe) 15 unit BID SQ 02/08/21 21:00 02/09/21 10:14 Insulin Human Lispro (HumaLOG) 3 units TIDAC SQ 02/09/21 07:30 02/09/21 12:33 Carvedilol (Coreg) 6.25 mg BIDWMEALS PO 02/08/21 20:30 02/09/21 09:48 Atorvastatin Calcium (Lipitor) 40 mg HS PO 02/08/21 21:00 02/08/21 21:05 Lisinopril (Prinivil) 5 mg DAILY PO 02/09/21 09:00 02/09/21 13:04 DC 02/09/21 09:48 Sodium Chloride 1,000 ml @ 100 mls/hr Q10H IV 02/09/21 07:00 02/09/21 07:36 Enoxaparin Sodium (Lovenox 40mg Syringe) 40 mg BID SQ 02/09/21 09:00 02/09/21 09:49 Justifications for Admission Other Justification SANDI ALCARAZ MD Feb 09, 2021 13:07
--- NOTE | 2021-02-09 13:33 | NUR ---
SW following. Discussed with RN, pt from home with family, room air, clear liquid diet. COVID-19 positive. Med Assist following for self pay status. Dr. Mccauley advised possible discharge home today. SW will continue to follow.
[2021-02-09] MEDS: ACETAMINOPHEN 325 MG TABLET. PO PRN (14:57)
[2021-02-09] MEDS: HYDROmorphone 2 MG/ML VIAL IVP PRN (18:11)
[2021-02-09] MEDS: ATORVASTATIN CALCIUM 40 MG TABLET. PO SCH (21:15)
[2021-02-10] MEDS: INSULIN LISPRO 300 UNITS/3 ML VIAL. SQ SCH ×9 (00:08→20:00)
[2021-02-10] MEDS: ONDANSETRON PF 4 MG/2 ML VIAL. IVP PRN ×2 (00:11→08:48)
[2021-02-10 03:00] VITALS: BP 147/55
[2021-02-10] MEDS: IV NORMAL SALINE 1000ML BAG 1,000 ML IV SCH ×3 (03:59→23:13)
[2021-02-10] MEDS: PROCHLORPERAZINE 10 MG/2 ML VIAL. IV PRN ×3 (04:04→23:41)
[2021-02-10 07:00] VITALS: BP 177/71
[2021-02-10 08:08] LABS: BASO % 0 % (0-3); EOS % 0 % (0-3); HEMATOCRIT 42.4 % (36.0-47.0); HEMOGLOBIN 14.6 g/dL (12.0-15.5); LYMPH # 0.8 x10^3/uL (1.0-4.8); LYMPH % 21 % (24-48); MEAN CORPUSCULAR HEMOGLOBIN 30 pg (25-35); MEAN CORPUSCULAR HGB CONC 34 g/dL (31-37); MEAN CORPUSCULAR VOLUME 88 fL (79-100); MONO # 0.3 x10^3/uL (0.0-1.1); MONO % 8 % (0-9); NEUT # 2.7 x10^3/uL (1.8-7.7); NEUT % 71 % (31-73); PLATELET COUNT 167 x10^3/uL (140-400); RED BLOOD COUNT 4.82 x10^6/uL (3.50-5.40); RED CELL DISTRIBUTION WIDTH 12.9 % (11.5-14.5); WHITE BLOOD COUNT 3.8 x10^3/uL (4.0-11.0)
[2021-02-10 08:14] LABS: CALCIUM 7.9 mg/dL (8.5-10.1); MAGNESIUM 2.2 mg/dL (1.8-2.4); POTASSIUM 3.5 mmol/L (3.5-5.1)
[2021-02-10] MEDS: ENOXAPARIN 40 MG/0.4 ML SYRINGE. SQ SCH ×2 (08:39→20:39)
[2021-02-10] MEDS: LISINOPRIL 5 MG TABLET. PO SCH (08:46)
[2021-02-10] MEDS: CARVEDILOL 6.25 MG TABLET. PO SCH ×2 (08:47→18:12)
[2021-02-10] MEDS: INSULIN GLARGINE SYRINGE. SQ SCH ×2 (08:55→20:40)
[2021-02-10 11:00] VITALS: BP 149/65
[2021-02-10] MEDS: ACETAMINOPHEN 325 MG TABLET. PO PRN ×2 (12:58→20:38)
[2021-02-10 15:00] VITALS: BP 129/67
--- NOTE | 2021-02-10 16:48 | PDOC ---
[facility] PROGRESS NOTE Date of Service DOS: DATE: 02/10/21 TIME: 16:46 Chief Complaint Chief Complaint COVID-19 positive infection Tractable nausea vomiting DKA Anion gap metabolic acidosis Acute electrolyte derangementhyponatremia, hypochloremia due to volume depletion Hyperglycemia uncontrolled BOB due to vasomotor nephropathy Erythrocytosis 7 for diabetic gastroparesis Continue IV fluids and advance diet as tolerated. IV Compazine or Reglan for nausea ABG on admission pending urine and blood ketones Continue sliding-scale and Accu-Cheks every 4 hours When glucose is less than 200, AG is closed, patient able to eat, and HCO3 greater than 15, then transition with subcu insulin 0.1 units/kg every 2 hours for at least 2 hours Switch to one half NS at half the rate if NA is normal or elevated As needed D50 W or add D5 to IV fluids if Accu-Cheks are less than 200 Maintain potassium between 3.5-5, if potassium falls below 3.3, stop insulin and add 40 mEq/h of potassium Maintained p.o. 3 greater than 1.0 If arterial pH is below 6.9, give 100 mEq of sodium bicarb +20 mEq of potassium Every 2-4 hours BMP and a be checked until stable Every hour Accu-Cheks while on insulin O2 supplementation if patient develops hypoxia SCD for DVT prophylaxis Protonix GI prophylaxis ADA diet Full code Discussed with RN and SW Disposition inpatient management as above Surrogate decision maker is Brian Whitmore History of Present Illness History of Present Illness 46 year old female who presents with nausea/vomiting since 7 AM yesterday morning. Patient states that her recently tested positive for Covid. She states that he "coughed in my face because he thought it was funny." She reports subjective fevers and chills and nausea/vomiting. Denies sore throat, cough, shortness of breath. No chest pain. Does have some upper abdominal discomfort after vomiting, that she attributes to muscular strain. She is not vaccinated for Covid. 02/08/2021 No acute events overnight. Patient seen and examined bedside and resting comfortably. Continues to complain of nausea not able to tolerate any diet at this time. Saturating 98% on room air. Patient's chart, labs, images were reviewed and discussed with RN 02/09/2021: Afebrile, currently breathing on room air. Still with complaints of nausea and vomiting x3 today. States that she has history of similar symptoms that have been mildly improved with IV Dilaudid. Discussed with patient that I will provide IV Dilaudid to help with her nausea, but she will not discharged on this medication. Will obtain 6-minute walk to evaluate oxygen requirements. Upon discharge, I recommend self quarantine for 10 days for resolution of her symptoms. Discussed with patient that she will discharge tomorrow. 02/10/2021: Patient febrile today with T-max 102.2 F. She still admits to nausea, denies any further vomiting. We will continue to provide supportive care and monitor for any recurrent fevers overnight. Patient continues to improve may discharge tomorrow to continue self-isolation. Vitals/I&O Vitals/I&O: Vital Signs Date Time Temp Pulse Resp B/P (MAP) Pulse Ox O2 Delivery O2 Flow Rate FiO2 02/10/21 15:00 100.8 80 18 129/67 (87) 95 Room Air 100.8 02/09/21 18:41 94.0 I & O 02/09/21 02/09/21 02/10/21 15:00 23:00 07:00 Intake Total 100 ml 200 ml Output Total 0 ml Balance 100 ml 200 ml Physical Exam General: Alert, Oriented X3, Cooperative Heart: Regular rate Lungs: Clear Abdomen: Normal bowel sounds Extremities: No clubbing, No edema Skin: No rashes, No significant lesion Labs Labs: Laboratory Tests Test 02/09/21 17:04 02/09/21 19:17 02/09/21 23:10 02/10/21 07:25 Glucose (Fingerstick) 149 mg/dL (70-99) 174 mg/dL (70-99) 260 mg/dL (70-99) White Blood Count 3.8 x10^3/uL (4.0-11.0) Red Blood Count 4.82 x10^6/uL (3.50-5.40) Hemoglobin 14.6 g/dL (12.0-15.5) Hematocrit 42.4 % (36.0-47.0) Mean Corpuscular Volume 88 fL (79-100) Mean Corpuscular Hemoglobin 30 pg (25-35) Mean Corpuscular Hemoglobin Concent 34 g/dL (31-37) Red Cell Distribution Width 12.9 % (11.5-14.5) Platelet Count 167 x10^3/uL (140-400) Neutrophils (%) (Auto) 71 % (31-73) Lymphocytes (%) (Auto) 21 % (24-48) Monocytes (%) (Auto) 8 % (0-9) Eosinophils (%) (Auto) 0 % (0-3) Basophils (%) (Auto) 0 % (0-3) Neutrophils # (Auto) 2.7 x10^3/uL (1.8-7.7) Lymphocytes # (Auto) 0.8 x10^3/uL (1.0-4.8) Monocytes # (Auto) 0.3 x10^3/uL (0.0-1.1) Eosinophils # (Auto) 0.0 x10^3/uL (0.0-0.7) Basophils # (Auto) 0.0 x10^3/uL (0.0-0.2) Sodium Level 134 mmol/L (136-145) Potassium Level 3.5 mmol/L (3.5-5.1) Chloride Level 100 mmol/L (98-107) Carbon Dioxide Level 25 mmol/L (21-32) Anion Gap 9 (6-14) Blood Urea Nitrogen 16 mg/dL (7-20) Creatinine 1.0 mg/dL (0.6-1.0) Estimated GFR (Cockcroft-Gault) 60.0 Glucose Level 150 mg/dL (70-99) Calcium Level 7.9 mg/dL (8.5-10.1) Magnesium Level 2.2 mg/dL (1.8-2.4) Test 02/10/21 08:06 02/10/21 11:14 Glucose (Fingerstick) 169 mg/dL (70-99) 132 mg/dL (70-99) Assessment and Plan Assessmemt and Plan Problems Medical Problems: (1) Ketoacidosis Status: Acute Comment Review of Relevant I have reviewed the following items mazin (where applicable) has been applied. Medications: Current Medications Medications (Trade) Dose Ordered Sig/Pepe Route PRN Reason Start Time Stop Time Status Last Admin Dose Admin Lisinopril (Prinivil) 10 mg DAILY PO 02/10/21 09:00 02/10/21 08:46 Hydromorphone HCl (Dilaudid) 2 mg PRN Q6HRS PRN IVP PAIN 02/09/21 17:15 02/09/21 18:11 Justifications for Admission Other Justification SANDI ALCARAZ MD Feb 10, 2021 16:48
[2021-02-10] MEDS: METOCLOPRAMIDE HCL 10 MG/2 ML VIAL. IVP PRN (18:13)
[2021-02-10 19:00] VITALS: BP 166/69
[2021-02-10] MEDS: ATORVASTATIN CALCIUM 40 MG TABLET. PO SCH (20:39)
[2021-02-10 23:00] VITALS: BP 127/70
[2021-02-10] MEDS: BENZONATATE 100 MG CAPSULE. PO SCH (23:40)
[2021-02-10] MEDS: guaiFENesin DM 200MG/20MG 10 ML SYRUP PO PRN (23:40)
[2021-02-11] MEDS: ONDANSETRON PF 4 MG/2 ML VIAL. IVP PRN ×2 (02:38→14:33)
[2021-02-11] MEDS: ACETAMINOPHEN 325 MG TABLET. PO PRN ×2 (02:38→08:45)
[2021-02-11 03:00] VITALS: BP 153/64
[2021-02-11] MEDS: INSULIN LISPRO 300 UNITS/3 ML VIAL. SQ SCH ×9 (04:00→21:41)
[2021-02-11 07:00] VITALS: BP 171/64
--- NOTE | 2021-02-11 08:30 | PDOC ---
[facility] PROGRESS NOTE Date of Service DOS: DATE: 02/11/21 TIME: 08:29 Chief Complaint Chief Complaint COVID-19 positive infection Tractable nausea vomiting DKA Anion gap metabolic acidosis Acute electrolyte derangementhyponatremia, hypochloremia due to volume depletion Hyperglycemia uncontrolled BOB due to vasomotor nephropathy Erythrocytosis 7 for diabetic gastroparesis Continue IV fluids and advance diet as tolerated. IV Compazine or Reglan for nausea ABG on admission pending urine and blood ketones Continue sliding-scale and Accu-Cheks every 4 hours When glucose is less than 200, AG is closed, patient able to eat, and HCO3 greater than 15, then transition with subcu insulin 0.1 units/kg every 2 hours for at least 2 hours Switch to one half NS at half the rate if NA is normal or elevated As needed D50 W or add D5 to IV fluids if Accu-Cheks are less than 200 Maintain potassium between 3.5-5, if potassium falls below 3.3, stop insulin and add 40 mEq/h of potassium Maintained p.o. 3 greater than 1.0 If arterial pH is below 6.9, give 100 mEq of sodium bicarb +20 mEq of potassium Every 2-4 hours BMP and a be checked until stable Every hour Accu-Cheks while on insulin O2 supplementation if patient develops hypoxia SCD for DVT prophylaxis Protonix GI prophylaxis ADA diet Full code Discussed with RN and SW Disposition inpatient management as above Surrogate decision maker is Brian Whitmore History of Present Illness History of Present Illness 46 year old female who presents with nausea/vomiting since 7 AM yesterday morning. Patient states that her recently tested positive for Covid. She states that he "coughed in my face because he thought it was funny." She reports subjective fevers and chills and nausea/vomiting. Denies sore throat, cough, shortness of breath. No chest pain. Does have some upper abdominal discomfort after vomiting, that she attributes to muscular strain. She is not vaccinated for Covid. 02/08/2021 No acute events overnight. Patient seen and examined bedside and resting comfortably. Continues to complain of nausea not able to tolerate any diet at this time. Saturating 98% on room air. Patient's chart, labs, images were r eviewed and discussed with RN 02/09/2021: Afebrile, currently breathing on room air. Still with complaints of nausea and vomiting x3 today. States that she has history of similar symptoms that have been mildly improved with IV Dilaudid. Discussed with patient that I will provide IV Dilaudid to help with her nausea, but she will not discharged on this medication. Will obtain 6-minute walk to evaluate oxygen requirements. Upon discharge, I recommend self quarantine for 10 days for resolution of her symptoms. Discussed with patient that she will discharge tomorrow. 02/10/2021: Patient febrile today with T-max 102.2 F. She still admits to nausea, denies any further vomiting. We will continue to provide supportive care and monitor for any recurrent fevers overnight. Patient continues to improve may discharge tomorrow to continue self-isolation. 02/11/2021: Febrile overnight, T-max 102.3 F. She did become hypoxic overnight, currently breathing on 4 L nasal cannula. Also admits to associated vomiting or diarrhea overnight. Discussed with RN, will initiate remdesivir and closely monitor LFTs. We will also treat with IV Decadron, and prophylactic antibiotics. Vitals/I&O Vitals/I&O: Vital Signs Date Time Temp Pulse Resp B/P (MAP) Pulse Ox O2 Delivery O2 Flow Rate FiO2 02/11/21 03:00 102.3 84 16 153/64 (93) 94 Room Air 102.3 I & O 02/10/21 02/10/21 02/11/21 15:00 23:00 07:00 Intake Total 1000 ml Output Total 0 ml Balance 1000 ml Physical Exam General: Alert, Oriented X3, Cooperative, mild distress Heart: Regular rate Lungs: Clear Abdomen: Normal bowel sounds Extremities: No clubbing, No edema Skin: No rashes, No significant lesion Labs Labs: Laboratory Tests Test 02/10/21 11:14 02/10/21 16:45 02/10/21 19:29 02/11/21 07:44 Glucose (Fingerstick) 132 mg/dL (70-99) 114 mg/dL (70-99) 145 mg/dL (70-99) 140 mg/dL (70-99) Assessment and Plan Assessmemt and Plan Problems Medical Problems: (1) Ketoacidosis Status: Acute Comment Review of Relevant I have reviewed the following items mazin (where applicable) has been applied. Medications: Current Medications Medications (Trade) Dose Ordered Sig/Pepe Route PRN Reason Start Time Stop Time Status Last Admin Dose Admin Lisinopril (Prinivil) 10 mg DAILY PO 02/10/21 09:00 02/10/21 08:46 Benzonatate (Tessalon Perle) 100 mg [id number] PO 02/10/21 23:30 02/10/21 23:40 Guaifenesin (Robitussin Dm) 10 ml PRN Q6HRS PRN PO COUGH 02/10/21 23:30 02/10/21 23:40 Justifications for Admission Other Justification SANDI ALCARAZ MD Feb 11, 2021 08:30
[2021-02-11] MEDS: guaiFENesin DM 200MG/20MG 10 ML SYRUP PO PRN ×3 (08:45→22:08)
[2021-02-11] MEDS: BENZONATATE 100 MG CAPSULE. PO SCH ×3 (08:45→20:58)
[2021-02-11] MEDS: ENOXAPARIN 40 MG/0.4 ML SYRINGE. SQ SCH ×2 (08:45→20:59)
[2021-02-11] MEDS: CARVEDILOL 6.25 MG TABLET. PO SCH ×2 (08:47→16:38)
[2021-02-11] MEDS: LISINOPRIL 5 MG TABLET. PO SCH (08:47)
[2021-02-11] MEDS: IV NORMAL SALINE 1000ML BAG 1,000 ML IV SCH ×2 (08:48→20:58)
[2021-02-11] MEDS: INSULIN GLARGINE SYRINGE. SQ SCH ×2 (09:30→22:10)
--- NOTE | 2021-02-11 10:58 | NUR ---
SW following. Discussed with RN, pt from home with family, now needing 4L oxygen (does not use at home), clear liquid diet. RN advised no SW needs at this time. Pt not ready to discharge home. SW will continue to follow.
[2021-02-11 11:00] VITALS: BP 139/68
--- NOTE | 2021-02-11 12:19 | NUR ---
Notes: This nurse called the patient's , Brian at 1218 and updated him of the patient's condition. Marissa was hypoxic at 79% O2 sat room air at 0700. Supplemental oxygen at [address] NC was place; O2 sats at 93-95%. Notified Dr. Mccauley, will initiate treatment. We'll continue to monitor.
[2021-02-11] MEDS ORDERED: cefTRIAXone IV Push 1 GM VIAL. IVP SCH (12:30)
[2021-02-11] MEDS ORDERED: REMDESIVIR LOAD in IV NORMAL SALINE 250ML TV IV ONE (13:00)
--- NOTE | 2021-02-11 13:15 | RAD ---
EXAM: Chest, single view. HISTORY: Shortness of breath. Covid 19. COMPARISON: 04/09/2015 FINDINGS: A frontal view of the chest obtained. There is diffuse lower lobe predominant interstitial and basilar infiltrate with suspected partial right lower lobe consolidation. There is no convincing pleural effusion. There is no pneumothorax. The heart is normal in size. IMPRESSION: Diffuse lower lobe predominant interstitial and alveolar infiltrate with suspected partia l right lower lobe consolidation. Electronically signed by: Roula Sanches MD (02/11/2021 1:12 PM) [id number]
[2021-02-11] MEDS: DEXAMETHASONE SOD PHOS 4 MG/ML VIAL IVP SCH (14:37)
[2021-02-11 15:00] VITALS: BP 143/76
[2021-02-11] MEDS: METOCLOPRAMIDE HCL 10 MG/2 ML VIAL. IVP PRN ×2 (16:35→22:08)
[2021-02-11 19:00] VITALS: BP 134/89
[2021-02-11] MEDS: ATORVASTATIN CALCIUM 40 MG TABLET. PO SCH (20:58)
[2021-02-11 23:00] VITALS: BP 162/77
[2021-02-12] MEDS: INSULIN LISPRO 300 UNITS/3 ML VIAL. SQ SCH ×10 (00:49→23:29)
[2021-02-12 03:00] VITALS: BP 174/77
[2021-02-12] MEDS: ONDANSETRON PF 4 MG/2 ML VIAL. IVP PRN (03:21)
[2021-02-12] MEDS: guaiFENesin DM 200MG/20MG 10 ML SYRUP PO PRN ×3 (04:14→21:48)
[2021-02-12] MEDS: IV NORMAL SALINE 1000ML BAG 1,000 ML IV SCH ×2 (04:15→15:51)
[2021-02-12 07:00] VITALS: BP 179/67
[2021-02-12 07:36] LABS: BASO % 0 % (0-3); EOS % 0 % (0-3); HEMOGLOBIN 13.6 g/dL (12.0-15.5); LYMPH # 0.9 x10^3/uL (1.0-4.8); LYMPH % 19 % (24-48); MEAN CORPUSCULAR HEMOGLOBIN 31 pg (25-35); MEAN CORPUSCULAR HGB CONC 35 g/dL (31-37); MEAN CORPUSCULAR VOLUME 88 fL (79-100); MONO # 0.3 x10^3/uL (0.0-1.1); MONO % 7 % (0-9); NEUT # 3.4 x10^3/uL (1.8-7.7); NEUT % 74 % (31-73); PLATELET COUNT 167 x10^3/uL (140-400); RED BLOOD COUNT 4.43 x10^6/uL (3.50-5.40); WHITE BLOOD COUNT 4.6 x10^3/uL (4.0-11.0)
[2021-02-12 07:58] LABS: CALCIUM 7.7 mg/dL (8.5-10.1); CREATININE 1.1 mg/dL (0.6-1.0); GFR 53.7; POTASSIUM 3.1 mmol/L (3.5-5.1)
[2021-02-12 08:06] LABS: ALBUMIN 2.5 g/dL (3.4-5.0); DIRECT BILIRUBIN 0.1 mg/dL (0.0-0.2); TOTAL BILIRUBIN 0.3 mg/dL (0.2-1.0); TOTAL PROTEIN 5.4 g/dL (6.4-8.2)
[2021-02-12 08:16] LABS: C-REACTIVE PROTEIN 38.4 mg/L (0-3.3)
[2021-02-12] MEDS: ENOXAPARIN 40 MG/0.4 ML SYRINGE. SQ SCH ×2 (09:34→21:50)
[2021-02-12] MEDS: CARVEDILOL 6.25 MG TABLET. PO SCH ×2 (09:34→17:03)
[2021-02-12] MEDS: DEXAMETHASONE SOD PHOS 4 MG/ML VIAL IVP SCH (09:34)
[2021-02-12] MEDS: LISINOPRIL 5 MG TABLET. PO SCH (09:35)
[2021-02-12] MEDS: BENZONATATE 100 MG CAPSULE. PO SCH ×3 (09:35→21:45)
[2021-02-12] MEDS: INSULIN GLARGINE SYRINGE. SQ SCH ×2 (09:36→21:47)
[2021-02-12] MEDS: PROCHLORPERAZINE 10 MG/2 ML VIAL. IV PRN (10:35)
[2021-02-12 11:01] VITALS: BP 146/74
--- NOTE | 2021-02-12 11:54 | PDOC ---
[facility] PROGRESS NOTE Date of Service DOS: DATE: 02/12/21 TIME: 11:51 Chief Complaint Chief Complaint COVID-19 positive infection Tractable nausea vomiting DKA Anion gap metabolic acidosis Acute electrolyte derangementhyponatremia, hypochloremia due to volume depletion Hyperglycemia uncontrolled BOB due to vasomotor nephropathy Erythrocytosis 7 for diabetic gastroparesis Continue IV fluids and advance diet as tolerated. IV Compazine or Reglan for nausea ABG on admission pending urine and blood ketones Continue sliding-scale and Accu-Cheks every 4 hours When glucose is less than 200, AG is closed, patient able to eat, and HCO3 greater than 15, then transition with subcu insulin 0.1 units/kg every 2 hours for at least 2 hours Switch to one half NS at half the rate if NA is normal or elevated As needed D50 W or add D5 to IV fluids if Accu-Cheks are less than 200 Maintain potassium between 3.5-5, if potassium falls below 3.3, stop insulin and add 40 mEq/h of potassium Maintained p.o. 3 greater than 1.0 If arterial pH is below 6.9, give 100 mEq of sodium bicarb +20 mEq of potassium Every 2-4 hours BMP and a be checked until stable Every hour Accu-Cheks while on insulin O2 supplementation if patient develops hypoxia SCD for DVT prophylaxis Protonix GI prophylaxis ADA diet Full code Discussed with RN and SW Disposition inpatient management as above Surrogate decision maker is Brian Whitmore History of Present Illness History of Present Illness 46 year old female who presents with nausea/vomiting since 7 AM yesterday morning. Patient states that her recently tested positive for Covid. She states that he "coughed in my face because he thought it was funny." She reports subjective fevers and chills and nausea/vomiting. Denies sore throat, cough, shortness of breath. No chest pain. Does have some upper abdominal discomfort after vomiting, that she attributes to muscular strain. She is not vaccinated for Covid. 02/08/2021 No acute events overnight. Patient seen and examined bedside and resting comfortably. Continues to complain of nausea not able to tolerate any diet at this time. Saturating 98% on room air. Patient's chart, labs, images were r eviewed and discussed with RN 02/09/2021: Afebrile, currently breathing on room air. Still with complaints of nausea and vomiting x3 today. States that she has history of similar symptoms that have been mildly improved with IV Dilaudid. Discussed with patient that I will provide IV Dilaudid to help with her nausea, but she will not discharged on this medication. Will obtain 6-minute walk to evaluate oxygen requirements. Upon discharge, I recommend self quarantine for 10 days for resolution of her symptoms. Discussed with patient that she will discharge tomorrow. 02/10/2021: Patient febrile today with T-max 102.2 F. She still admits to nausea, denies any further vomiting. We will continue to provide supportive care and monitor for any recurrent fevers overnight. Patient continues to improve may discharge tomorrow to continue self-isolation. 02/11/2021: Febrile overnight, T-max 102.3 F. She did become hypoxic overnight, currently breathing on 4 L nasal cannula. Also admits to associated vomiting or diarrhea overnight. Discussed with RN, will initiate remdesivir and closely monitor LFTs. We will also treat with IV Decadron, and prophylactic antibiotics. 02/12/2021: Low-grade fever overnight, T-max 99.7. Currently breathing on room air. Will discontinue remdesivir, steroids, and antibiotics; will observe overnight. Still with complaints of vomiting x1 and diarrhea. We will continue to provide supportive care and hope to discharge in the next day or so. Vitals/I&O Vitals/I&O: Vital Signs Date Time Temp Pulse Resp B/P (MAP) Pulse Ox O2 Delivery O2 Flow Rate FiO2 02/12/21 11:01 99.0 77 20 146/74 (98) 95 Room Air 99.0 02/11/21 19:00 6.0 I & O 02/11/21 02/11/21 02/12/21 15:00 23:00 07:00 Intake Total 950 ml 1550 ml Balance 950 ml 1550 ml Physical Exam General: Alert, Oriented X3, Cooperative, No acute distress Heart: Regular rate Lungs: Clear Abdomen: Normal bowel sounds Extremities: No clubbing, No edema Skin: No rashes, No significant lesion Labs Labs: Laboratory Tests Test 02/11/21 16:02 02/11/21 21:21 02/12/21 07:00 02/12/21 07:05 Glucose (Fingerstick) 205 mg/dL (70-99) 187 mg/dL (70-99) Total Bilirubin 0.3 mg/dL (0.2-1.0) Direct Bilirubin 0.1 mg/dL (0.0-0.2) Aspartate Amino Transf (AST/SGOT) 84 U/L (15-37) Alanine Aminotransferase (ALT/SGPT) 29 U/L (14-59) Alkaline Phosphatase 51 U/L (46-116) C-Reactive Protein, Quantitative 38.4 mg/L (0-3.3) Total Protein 5.4 g/dL (6.4-8.2) Albumin 2.5 g/dL (3.4-5.0) White Blood Count 4.6 x10^3/uL (4.0-11.0) Red Blood Count 4.43 x10^6/uL (3.50-5.40) Hemoglobin 13.6 g/dL (12.0-15.5) Hematocrit 39.0 % (36.0-47.0) Mean Corpuscular Volume 88 fL (79-100) Mean Corpuscular Hemoglobin 31 pg (25-35) Mean Corpuscular Hemoglobin Concent 35 g/dL (31-37) Red Cell Distribution Width 13.0 % (11.5-14.5) Platelet Count 167 x10^3/uL (140-400) Neutrophils (%) (Auto) 74 % (31-73) Lymphocytes (%) (Auto) 19 % (24-48) Monocytes (%) (Auto) 7 % (0-9) Eosinophils (%) (Auto) 0 % (0-3) Basophils (%) (Auto) 0 % (0-3) Neutrophils # (Auto) 3.4 x10^3/uL (1.8-7.7) Lymphocytes # (Auto) 0.9 x10^3/uL (1.0-4.8) Monocytes # (Auto) 0.3 x10^3/uL (0.0-1.1) Eosinophils # (Auto) 0.0 x10^3/uL (0.0-0.7) Basophils # (Auto) 0.0 x10^3/uL (0.0-0.2) Sodium Level 133 mmol/L (136-145) Potassium Level 3.1 mmol/L (3.5-5.1) Chloride Level 98 mmol/L (98-107) Carbon Dioxide Level 26 mmol/L (21-32) Anion Gap 9 (6-14) Blood Urea Nitrogen 10 mg/dL (7-20) Creatinine 1.1 mg/dL (0.6-1.0) Estimated GFR (Cockcroft-Gault) 53.7 Glucose Level 222 mg/dL (70-99) Calcium Level 7.7 mg/dL (8.5-10.1) Test 02/12/21 07:09 Glucose (Fingerstick) 233 mg/dL (70-99) Assessment and Plan Assessmemt and Plan Problems Medical Problems: (1) Ketoacidosis Status: Acute Comment Review of Relevant I have reviewed the following items mazin (where applicable) has been applied. Medications: Current Medications Medications (Trade) Dose Ordered Sig/Pepe Route PRN Reason Start Time Stop Time Status Last Admin Dose Admin Remdesivir 200 mg/ Sodium Chloride 210 ml @ 210 mls/hr 1X ONCE IV 02/11/21 13:00 02/11/21 13:59 DC 02/11/21 14:33 Ceftriaxone Sodium (Rocephin) 1 gm Q24H IVP 02/11/21 12:30 02/16/21 12:29 02/11/21 12:55 Dexamethasone Sodium Phosphate (Decadron) 6 mg DAILY IVP 02/11/21 13:00 02/12/21 09:34 Justifications for Admission Other Justification SANDI ALCARAZ MD Feb 12, 2021 11:53
[2021-02-12] MEDS ORDERED: REMDESIVIR 100mg in NORMAL SALINE 250ML X 4 DAYS IV SCH (13:00)
[2021-02-12 15:00] VITALS: BP 163/64
[2021-02-12] MEDS: METOCLOPRAMIDE HCL 10 MG/2 ML VIAL. IVP PRN (15:51)
[2021-02-12 19:00] VITALS: BP 156/63
[2021-02-12] MEDS: ATORVASTATIN CALCIUM 40 MG TABLET. PO SCH (21:45)
[2021-02-12 23:00] VITALS: BP 134/59
[2021-02-13] MEDS: IV NORMAL SALINE 1000ML BAG 1,000 ML IV SCH ×3 (01:58→21:00)
[2021-02-13 03:00] VITALS: BP 148/67
[2021-02-13] MEDS: INSULIN LISPRO 300 UNITS/3 ML VIAL. SQ SCH ×8 (04:08→20:00)
[2021-02-13] MEDS: ENOXAPARIN 40 MG/0.4 ML SYRINGE. SQ SCH ×2 (09:05→21:22)
[2021-02-13] MEDS: BENZONATATE 100 MG CAPSULE. PO SCH ×3 (09:05→21:22)
[2021-02-13] MEDS: LISINOPRIL 5 MG TABLET. PO SCH (09:05)
[2021-02-13] MEDS: CARVEDILOL 6.25 MG TABLET. PO SCH ×2 (09:05→17:42)
[2021-02-13] MEDS: INSULIN GLARGINE SYRINGE. SQ SCH ×2 (09:13→21:23)
[2021-02-13 09:25] VITALS: BP 151/69
[2021-02-13 09:46] LABS: BASO % 0 % (0-3); EOS % 0 % (0-3); HEMOGLOBIN 13.6 g/dL (12.0-15.5); LYMPH # 1.2 x10^3/uL (1.0-4.8); LYMPH % 19 % (24-48); MEAN CORPUSCULAR HEMOGLOBIN 30 pg (25-35); MEAN CORPUSCULAR HGB CONC 34 g/dL (31-37); MEAN CORPUSCULAR VOLUME 88 fL (79-100); MONO # 0.5 x10^3/uL (0.0-1.1); MONO % 7 % (0-9); NEUT # 4.7 x10^3/uL (1.8-7.7); NEUT % 73 % (31-73); PLATELET COUNT 241 x10^3/uL (140-400); RED BLOOD COUNT 4.54 x10^6/uL (3.50-5.40); RED CELL DISTRIBUTION WIDTH 12.7 % (11.5-14.5); WHITE BLOOD COUNT 6.4 x10^3/uL (4.0-11.0)
[2021-02-13 10:00] LABS: CALCIUM 7.9 mg/dL (8.5-10.1); CREATININE 1.2 mg/dL (0.6-1.0); GFR 48.6
[2021-02-13 10:07] LABS: ALBUMIN 2.3 g/dL (3.4-5.0); DIRECT BILIRUBIN 0.1 mg/dL (0.0-0.2); TOTAL BILIRUBIN 0.3 mg/dL (0.2-1.0)
[2021-02-13 10:08] LABS: POTASSIUM 2.9 mmol/L (3.5-5.1)
[2021-02-13 10:19] LABS: C-REACTIVE PROTEIN 16.3 mg/L (0-3.3)
[2021-02-13] MEDS ORDERED: POTASSIUM CHLORIDE 20 MEQ TABLET.ER. PO ONE ×2 (10:30→12:00)
--- NOTE | 2021-02-13 11:31 | PDOC ---
[facility] PROGRESS NOTE Date of Service DOS: DATE: 02/13/21 TIME: 11:29 Chief Complaint Chief Complaint COVID-19 positive infection Tractable nausea vomiting DKA Anion gap metabolic acidosis Acute electrolyte derangementhyponatremia, hypochloremia due to volume depletion Hyperglycemia uncontrolled BBO due to vasomotor nephropathy Erythrocytosis 7 for diabetic gastroparesis Continue IV fluids and advance diet as tolerated. IV Compazine or Reglan for nausea ABG on admission pending urine and blood ketones Continue sliding-scale and Accu-Cheks every 4 hours When glucose is less than 200, AG is closed, patient able to eat, and HCO3 greater than 15, then transition with subcu insulin 0.1 units/kg every 2 hours for at least 2 hours Switch to one half NS at half the rate if NA is normal or elevated As needed D50 W or add D5 to IV fluids if Accu-Cheks are less than 200 Maintain potassium between 3.5-5, if potassium falls below 3.3, stop insulin and add 40 mEq/h of potassium Maintained p.o. 3 greater than 1.0 If arterial pH is below 6.9, give 100 mEq of sodium bicarb +20 mEq of potassium Every 2-4 hours BMP and a be checked until stable Every hour Accu-Cheks while on insulin O2 supplementation if patient develops hypoxia SCD for DVT prophylaxis Protonix GI prophylaxis ADA diet Full code Discussed with RN and SW Disposition inpatient management as above Surrogate decision maker is Brian Whitmore History of Present Illness History of Present Illness 46 year old female who presents with nausea/vomiting since 7 AM yesterday morning. Patient states that her recently tested positive for Covid. She states that he "coughed in my face because he thought it was funny." She reports subjective fevers and chills and nausea/vomiting. Denies sore throat, cough, shortness of breath. No chest pain. Does have some upper abdominal discomfort after vomiting, that she attributes to muscular strain. She is not vaccinated for Covid. 02/08/2021 No acute events overnight. Patient seen and examined bedside and resting comfortably. Continues to complain of nausea not able to tolerate any diet at this time. Saturating 98% on room air. Patient's chart, labs, images were r eviewed and discussed with RN 02/09/2021: Afebrile, currently breathing on room air. Still with complaints of nausea and vomiting x3 today. States that she has history of similar symptoms that have been mildly improved with IV Dilaudid. Discussed with patient that I will provide IV Dilaudid to help with her nausea, but she will not discharged on this medication. Will obtain 6-minute walk to evaluate oxygen requirements. Upon discharge, I recommend self quarantine for 10 days for resolution of her symptoms. Discussed with patient that she will discharge tomorrow. 02/10/2021: Patient febrile today with T-max 102.2 F. She still admits to nausea, denies any further vomiting. We will continue to provide supportive care and monitor for any recurrent fevers overnight. Patient continues to improve may discharge tomorrow to continue self-isolation. 02/11/2021: Febrile overnight, T-max 102.3 F. She did become hypoxic overnight, currently breathing on 4 L nasal cannula. Also admits to associated vomiting or diarrhea overnight. Discussed with RN, will initiate remdesivir and closely monitor LFTs. We will also treat with IV Decadron, and prophylactic antibiotics. 02/12/2021: Low-grade fever overnight, T-max 99.7. Currently breathing on room air. Will discontinue remdesivir, steroids, and antibiotics; will observe overnight. Still with complaints of vomiting x1 and diarrhea. We will continue to provide supportive care and hope to discharge in the next day or so. 02/13/2021: Afebrile. Still complains of intermittent diarrhea. At the time of my evaluation she was breathing on 6 L nasal cannula; this is somewhat misleading as patient states that she did not feel short of breath but was placed on 6 L by nursing staff overnight. Will have RN reassess her oxygen re quirements as I did anticipate discharging today. Vitals/I&O Vitals/I&O: Vital Signs Date Time Temp Pulse Resp B/P (MAP) Pulse Ox O2 Delivery O2 Flow Rate FiO2 02/13/21 09:25 96.2 69 22 151/69 (96) 96 Room Air 96.2 I & O 02/12/21 02/12/21 02/13/21 15:00 23:00 07:00 Intake Total 400 ml 1980 ml 1100 ml Balance 400 ml 1980 ml 1100 ml Physical Exam General: Alert, Oriented X3, Cooperative, No acute distress Heart: Regular rate Lungs: Clear Abdomen: Normal bowel sounds Extremities: No clubbing, No edema Skin: No rashes, No significant lesion Labs Labs: Laboratory Tests Test 02/12/21 12:03 02/12/21 16:36 02/12/21 20:49 02/13/21 08:55 Glucose (Fingerstick) 227 mg/dL (70-99) 205 mg/dL (70-99) 215 mg/dL (70-99) White Blood Count 6.4 x10^3/uL (4.0-11.0) Red Blood Count 4.54 x10^6/uL (3.50-5.40) Hemoglobin 13.6 g/dL (12.0-15.5) Hematocrit 40.0 % (36.0-47.0) Mean Corpuscular Volume 88 fL (79-100) Mean Corpuscular Hemoglobin 30 pg (25-35) Mean Corpuscular Hemoglobin Concent 34 g/dL (31-37) Red Cell Distribution Width 12.7 % (11.5-14.5) Platelet Count 241 x10^3/uL (140-400) Neutrophils (%) (Auto) 73 % (31-73) Lymphocytes (%) (Auto) 19 % (24-48) Monocytes (%) (Auto) 7 % (0-9) Eosinophils (%) (Auto) 0 % (0-3) Basophils (%) (Auto) 0 % (0-3) Neutrophils # (Auto) 4.7 x10^3/uL (1.8-7.7) Lymphocytes # (Auto) 1.2 x10^3/uL (1.0-4.8) Monocytes # (Auto) 0.5 x10^3/uL (0.0-1.1) Eosinophils # (Auto) 0.0 x10^3/uL (0.0-0.7) Basophils # (Auto) 0.0 x10^3/uL (0.0-0.2) Sodium Level 136 mmol/L (136-145) Potassium Level 2.9 mmol/L (3.5-5.1) Chloride Level 101 mmol/L (98-107) Carbon Dioxide Level 27 mmol/L (21-32) Anion Gap 8 (6-14) Blood Urea Nitrogen 9 mg/dL (7-20) Creatinine 1.2 mg/dL (0.6-1.0) Estimated GFR (Cockcroft-Gault) 48.6 Glucose Level 176 mg/dL (70-99) Calcium Level 7.9 mg/dL (8.5-10.1) Total Bilirubin 0.3 mg/dL (0.2-1.0) Direct Bilirubin 0.1 mg/dL (0.0-0.2) Aspartate Amino Transf (AST/SGOT) 93 U/L (15-37) Alanine Aminotransferase (ALT/SGPT) 31 U/L (14-59) Alkaline Phosphatase 56 U/L (46-116) C-Reactive Protein, Quantitative 16.3 mg/L (0-3.3) Total Protein 6.0 g/dL (6.4-8.2) Albumin 2.3 g/dL (3.4-5.0) Test 02/13/21 08:59 Glucose (Fingerstick) 147 mg/dL (70-99) Assessment and Plan Assessmemt and Plan Problems Medical Problems: (1) Ketoacidosis Status: Acute Comment Review of Relevant I have reviewed the following items mazin (where applicable) has been applied. Medications: Current Medications Medications (Trade) Dose Ordered Sig/Pepe Route PRN Reason Start Time Stop Time Status Last Admin Dose Admin Potassium Chloride (Klor-Con) 40 meq 1X ONCE PO 02/13/21 10:30 02/13/21 10:47 DC 02/13/21 11:11 Justifications for Admission Other Justification SANDI ALCARAZ MD Feb 13, 2021 11:31
--- NOTE | 2021-02-13 12:17 | NUR ---
SW following. Discussed with RN, pt from home, room air, GI soft diet. COVID-19 positive. Anticipate discharge home today. SW will continue to follow.
[2021-02-13 12:56] VITALS: BP 139/70
[2021-02-13 16:42] VITALS: BP 151/68
[2021-02-13] MEDS: guaiFENesin DM 200MG/20MG 10 ML SYRUP PO PRN (17:47)
[2021-02-13 19:00] VITALS: BP 162/70
--- NOTE | 2021-02-13 20:50 | NUR ---
Pt. now requiring oxygen at 6-8 liters/nc. In the 70's on RA. Dr. Mora notified of accucath infiltration. Ordered PICC if anesthesia unable to obtain IV. Nursing powdered sugar supervisor notified. Anesthesia called and said they would not be able to start one if accucath and ultrasound was already used. Nursing powdered sugar supervisor again notified and she was to contact [facility]. Consents to be signed.
[2021-02-13] MEDS: ATORVASTATIN CALCIUM 40 MG TABLET. PO SCH (21:22)
[2021-02-13] MEDS: ACETAMINOPHEN 325 MG TABLET. PO PRN (21:35)
[2021-02-13 23:00] VITALS: BP 123/62
[2021-02-14 03:00] VITALS: BP 147/76
--- NOTE | 2021-02-14 06:08 | NUR ---
Pt. refusing morning labs.
[2021-02-14 07:00] VITALS: BP 120/63
[2021-02-14] MEDS: IV NORMAL SALINE 1000ML BAG 1,000 ML IV SCH ×2 (07:00→18:16)
[2021-02-14] MEDS: LISINOPRIL 5 MG TABLET. PO SCH ×2 (09:00→09:17)
[2021-02-14] MEDS: BENZONATATE 100 MG CAPSULE. PO SCH ×3 (09:17→21:09)
[2021-02-14] MEDS: CARVEDILOL 6.25 MG TABLET. PO SCH ×2 (09:18→18:18)
[2021-02-14] MEDS: ENOXAPARIN 40 MG/0.4 ML SYRINGE. SQ SCH ×2 (09:19→21:09)
[2021-02-14] MEDS: INSULIN GLARGINE SYRINGE. SQ SCH ×2 (09:43→21:10)
[2021-02-14] MEDS: INSULIN LISPRO 300 UNITS/3 ML VIAL. SQ SCH ×7 (09:46→21:00)
[2021-02-14 11:00] VITALS: BP 104/72
--- NOTE | 2021-02-14 12:33 | PDOC ---
[facility] PROGRESS NOTE Date of Service DOS: DATE: 02/14/21 TIME: 12:29 Chief Complaint Chief Complaint COVID-19 positive infection Tractable nausea vomiting DKA Anion gap metabolic acidosis Acute electrolyte derangementhyponatremia, hypochloremia due to volume depletion Hyperglycemia uncontrolled BOB due to vasomotor nephropathy Erythrocytosis 7 for diabetic gastroparesis Continue IV fluids and advance diet as tolerated. IV Compazine or Reglan for nausea ABG on admission pending urine and blood ketones Continue sliding-scale and Accu-Cheks every 4 hours When glucose is less than 200, AG is closed, patient able to eat, and HCO3 greater than 15, then transition with subcu insulin 0.1 units/kg every 2 hours for at least 2 hours Switch to one half NS at half the rate if NA is normal or elevated As needed D50 W or add D5 to IV fluids if Accu-Cheks are less than 200 Maintain potassium between 3.5-5, if potassium falls below 3.3, stop insulin and add 40 mEq/h of potassium Maintained p.o. 3 greater than 1.0 If arterial pH is below 6.9, give 100 mEq of sodium bicarb +20 mEq of potassium Every 2-4 hours BMP and a be checked until stable Every hour Accu-Cheks while on insulin O2 supplementation if patient develops hypoxia SCD for DVT prophylaxis Protonix GI prophylaxis ADA diet Full code Discussed with RN and SW Disposition inpatient management as above Surrogate decision maker is Brian Whitmore History of Present Illness History of Present Illness 46 year old female who presents with nausea/vomiting since 7 AM yesterday morning. Patient states that her recently tested positive for Covid. She states that he "coughed in my face because he thought it was funny." She reports subjective fevers and chills and nausea/vomiting. Denies sore throat, cough, shortness of breath. No chest pain. Does have some upper abdominal discomfort after vomiting, that she attributes to muscular strain. She is not vaccinated for Covid. 02/08/2021 No acute events overnight. Patient seen and examined bedside and resting comfortably. Continues to complain of nausea not able to tolerate any diet at this time. Saturating 98% on room air. Patient's chart, labs, images were r eviewed and discussed with RN 02/09/2021: Afebrile, currently breathing on room air. Still with complaints of nausea and vomiting x3 today. States that she has history of similar symptoms that have been mildly improved with IV Dilaudid. Discussed with patient that I will provide IV Dilaudid to help with her nausea, but she will not discharged on this medication. Will obtain 6-minute walk to evaluate oxygen requirements. Upon discharge, I recommend self quarantine for 10 days for resolution of her symptoms. Discussed with patient that she will discharge tomorrow. 02/10/2021: Patient febrile today with T-max 102.2 F. She still admits to nausea, denies any further vomiting. We will continue to provide supportive care and monitor for any recurrent fevers overnight. Patient continues to improve may discharge tomorrow to continue self-isolation. 02/11/2021: Febrile overnight, T-max 102.3 F. She did become hypoxic overnight, currently breathing on 4 L nasal cannula. Also admits to associated vomiting or diarrhea overnight. Discussed with RN, will initiate remdesivir and closely monitor LFTs. We will also treat with IV Decadron, and prophylactic antibiotics. 02/12/2021: Low-grade fever overnight, T-max 99.7. Currently breathing on room air. Will discontinue remdesivir, steroids, and antibiotics; will observe overnight. Still with complaints of vomiting x1 and diarrhea. We will continue to provide supportive care and hope to discharge in the next day or so. 02/13/2021: Afebrile. Still complains of intermittent diarrhea. At the time of my evaluation she was breathing on 6 L nasal cannula; this is somewhat misleading as patient states that she did not feel short of breath but was placed on 6 L by nursing staff overnight. Will have RN reassess her oxygen re quirements as I did anticipate discharging today. 02/14/2021: Afebrile, currently breathing on 8 L nasal cannula. There has been some misleading documentation, chart oxygen this patient is requiring. Discussed with RN, will resume remdesivir to complete total of 5 days. Continue to monitor LFTs. Will add steroids, Rocephin, and azithromycin. Continue supportive care. Vitals/I&O Vitals/I&O: Vital Signs Date Time Temp Pulse Resp B/P (MAP) Pulse Ox O2 Delivery O2 Flow Rate FiO2 02/14/21 11:00 99.7 99 20 104/72 (83) 96 Nasal Cannula 8.0 99.7 I & O 02/13/21 02/13/21 02/14/21 15:00 23:00 07:00 Intake Total 960 ml 240 ml 240 ml Balance 960 ml 240 ml 240 ml Physical Exam General: Alert, Oriented X3, Cooperative, No acute distress Heart: Regular rate Lungs: Clear Abdomen: Normal bowel sounds Extremities: No clubbing, No edema Skin: No rashes, No significant lesion Labs Labs: Laboratory Tests Test 02/13/21 12:34 02/13/21 15:20 02/13/21 20:29 02/14/21 09:02 Glucose (Fingerstick) 134 mg/dL (70-99) 258 mg/dL (70-99) 129 mg/dL (70-99) 161 mg/dL (70-99) Test 02/14/21 12:26 Glucose (Fingerstick) 149 mg/dL (70-99) Assessment and Plan Assessmemt and Plan Problems Medical Problems: (1) Ketoacidosis Status: Acute Comment Review of Relevant I have reviewed the following items mazin (where applicable) has been applied. Medications: Current Medications Medications (Trade) Dose Ordered Sig/Pepe Route PRN Reason Start Time Stop Time Status Last Admin Dose Admin Insulin Human Lispro (HumaLOG) 0-9 UNITS QIDACHS SQ 02/14/21 07:30 02/14/21 09:46 Justifications for Admission Other Justification SANDI ALCARAZ MD Feb 14, 2021 12:33
[2021-02-14] MEDS ORDERED: DEXAMETHASONE SOD PHOS 4 MG/ML VIAL IVP ONE ×2 (12:45→17:15)
[2021-02-14 15:00] VITALS: BP_SYST 114; BP_SYST 195; BP_DIAS 62; BP_DIAS 97
--- NOTE | 2021-02-14 16:18 | RAD ---
Single view chest dated 02/14/2021 4:15 PM: COMPARISON: 02/11/2021 Clinical Indication: PICC line. Covid. Findings: Single upright portable exam of the chest was performed. Heart and mediastinal contours are stable. I nterval placement of right-sided PICC with tip projected to the mid right atrium. Patchy airspace dis ease throughout both lungs, similar slightly increased. No pleural effusion. No pneumothorax. IMPRESSION: 1. Right-sided PICC with tip projected to the mid right atrium. 2. Widespread airspace disease, mildly increased Electronically signed by: Wali Norris MD (02/14/2021 4:16 PM) [id number]
[2021-02-14] MEDS: AZITHROMYCIN 250 MG in IV NORMAL SALINE 250ML 250 ML IV SCH (18:16)
[2021-02-14] MEDS: cefTRIAXone IV Push 1 GM VIAL. IVP SCH (18:16)
[2021-02-14 19:00] VITALS: BP 116/71
[2021-02-14] MEDS: guaiFENesin DM 200MG/20MG 10 ML SYRUP PO PRN (21:09)
[2021-02-14] MEDS: ATORVASTATIN CALCIUM 40 MG TABLET. PO SCH (21:09)
[2021-02-14] MEDS: ONDANSETRON PF 4 MG/2 ML VIAL. IVP PRN (21:54)
[2021-02-14 23:00] VITALS: BP 127/69
--- NOTE | 2021-02-15 01:27 | NUR ---
Approximately 2300, her oxygen saturation 90-91% on 8 liters, her respiratory rate 40+/minute, short, shallow breathing, this press writer requested the charge nurse, Brian Polanco, to assist with patient, carlos manuel m,ask applied with 10 L/, her oxygen probe changed, as she has long, acrylic nails, probe fastened to her right ear, wrapped, patient remains at 78-84% saturation, NRB placed at 100% , along with nasal cannula, sats 92%, but tachypneic at 50 bpm, Rtx called for assistance, patient's room not accommodating the [employer] (wrong size connection?), so Brian carl, nurse. setting up the [employer] in room 504 to monitor oxygen level and her respiratory rate closely, Gayle Wright, assists with patient, she sets up Bipap in room 504, pt transferred to room 504 with oxygen canister. respiratory rate remains elevated, ativan 0.5mg ivp given, flushed, patient's belongings moved to her room (504). Patient on bipap, Gayle adjusts settings, to monitor...
[2021-02-15 02:29] LABS: BASE EXCESS ABG 1 mmol/L (-3-3); HCO3 ABG 25 mmol/L (21-28); PCO2 ABG 39 mmHg (35-46); PO2 ABG 69 mmHg (75-108); SAT O2 ABG 93 % (92-99)
[2021-02-15 03:00] VITALS: BP 184/88
[2021-02-15] MEDS: HYDROmorphone 2 MG/ML VIAL IVP PRN ×2 (03:31→22:00)
--- NOTE | 2021-02-15 05:55 | NUR ---
Patient's oxygen saturation fluctuating between 70's-88, call/paged RTx at 0540, awaiting return call, meanwhile patient's bipap placed, resp rate remains rapid at 40-50's, encouraged to take deeper breaths, patient does so, with some results, oxygen max at 94%, and drops down to [id number]-khoa, continuing to monitor this patient.
[2021-02-15] MEDS: IV NORMAL SALINE 1000ML BAG 1,000 ML IV SCH ×2 (06:31→13:18)
[2021-02-15 07:00] VITALS: BP 134/78
--- NOTE | 2021-02-15 07:03 | NUR ---
Message left for , regarding update
[2021-02-15] MEDS: INSULIN LISPRO 300 UNITS/3 ML VIAL. SQ SCH ×7 (07:30→22:01)
--- NOTE | 2021-02-15 09:21 | CONS ---
DATE OF CONSULTATION: 02/15/2021 PULMONARY CONSULTATION ATTENDING PHYSICIAN: Dr. Jackson. REASON FOR CONSULTATION: Respiratory failure and COVID-19 pneumonia. HISTORY OF PRESENT ILLNESS: The patient is a 46-year-old morbidly obese female with a BMI of 39.5. She was recently tested positive for COVID. She was brought into the hospital with subjective fever, chills and nausea, vomiting. She was also noted to be in diabetic ketoacidosis. Since her hospital stay, her oxygen requirement has increased. She is now currently on BiPAP at 65% FIO2. ABGs obtained showed a pH of 7.43, pCO2 of 39 and pO2 of 69. Consultation requested for further evaluation and management. She appears to be mildly tachypneic while on BiPAP. Chest x-ray revealed diffuse bilateral interstitial infiltrates, which has increased recently. PAST MEDICAL HISTORY: Significant for type 2 diabetes, dyslipidemia, hypertension. SURGERIES: Cholecystectomy, hysterectomy, breast augmentation, abdominoplasty, right knee surgery. ALLERGIES: OXYCODONE. FAMILY HISTORY: Noncontributory to lungs. SOCIAL HISTORY: Nonsmoker. MEDICATIONS: Reviewed as listed in the [facility], including remdesivir, dexamethasone and empiric antibiotic. REVIEW OF SYSTEMS: A 10-point system obtained. Pertinent positives discussed in my present illness, otherwise noncontributory. All systems that were negative were reviewed as well. It was difficult for her to answer questions while on BiPAP. PHYSICAL EXAMINATION: VITAL SIGNS: Reviewed. Afebrile, blood pressure 184 systolic, pulse ox 97% on BiPAP at 65%. GENERAL: Visual exam done due to COVID-19. She has mild tachypnea and appears anxious. ABDOMEN: Obese. EXTREMITIES: With no pitting edema. No rash. LABORATORY DATA: Reviewed. Potassium 2.9. BUN and creatinine 9 and 1.2. ABGs discussed in my history of present illness. White cell count 6.4. IMPRESSION: 1. Acute hypoxic respiratory failure secondary to COVID-19 viral pneumonia/acute lung injury and early acute respiratory distress syndrome. 2. Nonsmoker. 3. Abnormal chest x-ray consistent with COVID-19 viral pneumonia. 4. Diabetic ketoacidosis as initial presentation, currently better. 5. Underlying obesity contributing to hypoxia as well. RECOMMENDATIONS: 1. Continue present BiPAP at 65% of FIO2. 2. The patient is at risk for mechanical ventilation. We will be watching her closely. 3. Follow oxygen saturations, keep 92% and above. 4. Continue Decadron. 5. Continue remdesivir. 6. Empiric antibiotic. 7. Lovenox for DVT prophylaxis. 8. Discussed with RN. Discussed with the patient her clinical condition.d/w Dr Stewart 9. We will follow along with you. Critical care time 33 minutes. BURAK/ANDREI DR: Kylie TID: [id number] MTDD
[2021-02-15] MEDS: BENZONATATE 100 MG CAPSULE. PO SCH ×3 (09:43→21:48)
[2021-02-15] MEDS: CARVEDILOL 6.25 MG TABLET. PO SCH ×2 (09:43→17:55)
[2021-02-15] MEDS: LISINOPRIL 5 MG TABLET. PO SCH (09:43)
[2021-02-15] MEDS: DEXAMETHASONE SOD PHOS 4 MG/ML VIAL IVP SCH (09:44)
[2021-02-15] MEDS: ENOXAPARIN 40 MG/0.4 ML SYRINGE. SQ SCH ×2 (09:44→21:49)
--- NOTE | 2021-02-15 10:16 | PDOC ---
[facility] PROGRESS NOTE Date of Service DOS: DATE: 02/15/21 TIME: 10:14 Chief Complaint Chief Complaint COVID-19 positive infection Tractable nausea vomiting DKA Anion gap metabolic acidosis Acute electrolyte derangementhyponatremia, hypochloremia due to volume depletion Hyperglycemia uncontrolled BOB due to vasomotor nephropathy Erythrocytosis 7 for diabetic gastroparesis Continue IV fluids and advance diet as tolerated. IV Compazine or Reglan for nausea ABG on admission pending urine and blood ketones Continue sliding-scale and Accu-Cheks every 4 hours When glucose is less than 200, AG is closed, patient able to eat, and HCO3 greater than 15, then transition with subcu insulin 0.1 units/kg every 2 hours for at least 2 hours Switch to one half NS at half the rate if NA is normal or elevated As needed D50 W or add D5 to IV fluids if Accu-Cheks are less than 200 Maintain potassium between 3.5-5, if potassium falls below 3.3, stop insulin and add 40 mEq/h of potassium Maintained p.o. 3 greater than 1.0 If arterial pH is below 6.9, give 100 mEq of sodium bicarb +20 mEq of potassium Every 2-4 hours BMP and a be checked until stable Every hour Accu-Cheks while on insulin O2 supplementation if patient develops hypoxia SCD for DVT prophylaxis Protonix GI prophylaxis ADA diet Full code Discussed with RN and SW Disposition inpatient management as above Surrogate decision maker is Brian Whitmore History of Present Illness History of Present Illness 46 year old female who presents with nausea/vomiting since 7 AM yesterday morning. Patient states that her recently tested positive for Covid. She states that he "coughed in my face because he thought it was funny." She reports subjective fevers and chills and nausea/vomiting. Denies sore throat, cough, shortness of breath. No chest pain. Does have some upper abdominal discomfort after vomiting, that she attributes to muscular strain. She is not vaccinated for Covid. 02/08/2021 No acute events overnight. Patient seen and examined bedside and resting comfortably. Continues to complain of nausea not able to tolerate any diet at this time. Saturating 98% on room air. Patient's chart, labs, images were r eviewed and discussed with RN 02/09/2021: Afebrile, currently breathing on room air. Still with complaints of nausea and vomiting x3 today. States that she has history of similar symptoms that have been mildly improved with IV Dilaudid. Discussed with patient that I will provide IV Dilaudid to help with her nausea, but she will not discharged on this medication. Will obtain 6-minute walk to evaluate oxygen requirements. Upon discharge, I recommend self quarantine for 10 days for resolution of her symptoms. Discussed with patient that she will discharge tomorrow. 02/10/2021: Patient febrile today with T-max 102.2 F. She still admits to nausea, denies any further vomiting. We will continue to provide supportive care and monitor for any recurrent fevers overnight. Patient continues to improve may discharge tomorrow to continue self-isolation. 02/11/2021: Febrile overnight, T-max 102.3 F. She did become hypoxic overnight, currently breathing on 4 L nasal cannula. Also admits to associated vomiting or diarrhea overnight. Discussed with RN, will initiate remdesivir and closely monitor LFTs. We will also treat with IV Decadron, and prophylactic antibiotics. 02/12/2021: Low-grade fever overnight, T-max 99.7. Currently breathing on room air. Will discontinue remdesivir, steroids, and antibiotics; will observe overnight. Still with complaints of vomiting x1 and diarrhea. We will continue to provide supportive care and hope to discharge in the next day or so. 02/13/2021: Afebrile. Still complains of intermittent diarrhea. At the time of my evaluation she was breathing on 6 L nasal cannula; this is somewhat misleading as patient states that she did not feel short of breath but was placed on 6 L by nursing staff overnight. Will have RN reassess her oxygen re quirements as I did anticipate discharging today. 02/14/2021: Afebrile, currently breathing on 8 L nasal cannula. There has been some misleading documentation, chart oxygen this patient is requiring. Discussed with RN, will resume remdesivir to complete total of 5 days. Continue to monitor LFTs. Will add steroids, Rocephin, and azithromycin. Continue supportive care. 02/15/2021: Afebrile. Became much more hypoxic overnight, requiring BiPAP. At the time of my evaluation she is still breathing on BiPAP. Consultation was placed to pulmonology. Had discussion with Dr. Myrick about initiating Tocilizumab, but currently there is 1 more person in the ER that would be more deserving. When stocks are replenished, she will be first inline to receive this medication. She is also first-line to be transferred down to ICU. Critical care time 30 minutes spent reviewing labs, reviewing imaging, d iscussion with Dr. Myrick, and discussion with RN. Vitals/I&O Vitals/I&O: Vital Signs Date Time Temp Pulse Resp B/P (MAP) Pulse Ox O2 Delivery O2 Flow Rate FiO2 02/15/21 09:43 80 134/78 02/15/21 07:00 97.5 20 93 BiPAP/CPAP 15.0 97.5 I & O 02/14/21 02/14/21 02/15/21 15:00 23:00 07:00 Intake Total 250 ml 1300 ml Output Total 0 ml Balance 0 ml 250 ml 1300 ml Physical Exam General: Alert, Oriented X3, Cooperative, No acute distress Heart: Regular rate Lungs: Clear Abdomen: Normal bowel sounds Extremities: No clubbing, No edema Skin: No rashes, No significant lesion Labs Labs: Laboratory Tests Test 02/14/21 12:26 02/14/21 18:26 02/14/21 19:47 02/15/21 00:59 Glucose (Fingerstick) 149 mg/dL (70-99) 113 mg/dL (70-99) 101 mg/dL (70-99) 166 mg/dL (70-99) Test 02/15/21 02:20 02/15/21 08:06 O2 Saturation 93 % (92-99) Arterial Blood pH 7.43 (7.35-7.45) Arterial Blood pCO2 at Patient Temp 39 mmHg (35-46) Arterial Blood pO2 at Patient Temp 69 mmHg (75-108) Arterial Blood HCO3 25 mmol/L (21-28) Arterial Blood Base Excess 1 mmol/L (-3-3) FiO2 65 (bipap) Glucose (Fingerstick) 222 mg/dL (70-99) Assessment and Plan Assessmemt and Plan Problems Medical Problems: (1) Ketoacidosis Status: Acute Comment Review of Relevant I have reviewed the following items mazin (where applicable) has been applied. Medications: Current Medications Medications (Trade) Dose Ordered Sig/Pepe Route PRN Reason Start Time Stop Time Status Last Admin Dose Admin Dexamethasone Sodium Phosphate (Decadron) 6 mg DAILY IVP 02/15/21 09:00 02/15/21 09:44 Ceftriaxone Sodium (Rocephin) 1 gm Q24H IVP 02/14/21 13:00 02/14/21 18:16 Azithromycin 250 mg/Sodium Chloride 250 ml @ 250 mls/hr Q24H IV 02/14/21 13:30 02/14/21 18:16 Dexamethasone Sodium Phosphate (Decadron) 6 mg 1X ONCE IVP 02/14/21 17:15 02/14/21 17:16 DC 02/14/21 18:17 Justifications for Admission Other Justification SANDI ALCARAZ MD Feb 15, 2021 10:16
[2021-02-15 11:00] VITALS: BP 131/77
[2021-02-15] MEDS: INSULIN GLARGINE SYRINGE. SQ SCH ×2 (11:05→21:50)
[2021-02-15] MEDS: REMDESIVIR 100mg in NORMAL SALINE 250ML X 4 DAYS IV SCH (11:13)
[2021-02-15 11:52] LABS: BASO # 0.1 x10^3/uL (0.0-0.2); BASO % 1 % (0-3); EOS % 0 % (0-3); HEMATOCRIT 37.1 % (36.0-47.0); HEMOGLOBIN 12.8 g/dL (12.0-15.5); LYMPH # 0.8 x10^3/uL (1.0-4.8); LYMPH % 8 % (24-48); MEAN CORPUSCULAR HEMOGLOBIN 30 pg (25-35); MEAN CORPUSCULAR HGB CONC 34 g/dL (31-37); MEAN CORPUSCULAR VOLUME 88 fL (79-100); MONO # 0.9 x10^3/uL (0.0-1.1); MONO % 9 % (0-9); NEUT # 7.9 x10^3/uL (1.8-7.7); NEUT % 82 % (31-73); PLATELET COUNT 256 x10^3/uL (140-400); RED BLOOD COUNT 4.24 x10^6/uL (3.50-5.40); RED CELL DISTRIBUTION WIDTH 13.3 % (11.5-14.5); WHITE BLOOD COUNT 9.7 x10^3/uL (4.0-11.0)
[2021-02-15 12:03] LABS: CALCIUM 7.6 mg/dL (8.5-10.1); CREATININE 1.2 mg/dL (0.6-1.0); GFR 48.6; POTASSIUM 3.5 mmol/L (3.5-5.1)
[2021-02-15 12:09] LABS: ALBUMIN 1.8 g/dL (3.4-5.0); C-REACTIVE PROTEIN 53.1 mg/L (0-3.3); DIRECT BILIRUBIN 0.2 mg/dL (0.0-0.2); TOTAL BILIRUBIN 0.4 mg/dL (0.2-1.0); TOTAL PROTEIN 5.2 g/dL (6.4-8.2)
[2021-02-15] MEDS: AZITHROMYCIN 250 MG in IV NORMAL SALINE 250ML 250 ML IV SCH (13:17)
[2021-02-15] MEDS: cefTRIAXone IV Push 1 GM VIAL. IVP SCH (13:17)
[2021-02-15 15:00] VITALS: BP 155/78
[2021-02-15 19:00] VITALS: BP 170/91
[2021-02-15] MEDS: ATORVASTATIN CALCIUM 40 MG TABLET. PO SCH (21:48)
[2021-02-15] MEDS: guaiFENesin DM 200MG/20MG 10 ML SYRUP PO PRN (21:48)
[2021-02-15 23:00] VITALS: BP 179/88
[2021-02-16] VITALS (15 sets, daily range): BP systolic 104–196; BP diastolic 59–101
[2021-02-16] MEDS: INSULIN LISPRO 300 UNITS/3 ML VIAL. SQ SCH ×7 (07:30→21:00)
[2021-02-16] MEDS ORDERED: ALTEPLASE 1MG SYRINGE. INT CAT ONE (08:00)
--- NOTE | 2021-02-16 09:02 | PDOC ---
PULMONARY PROGRESS NOTES DATE: 02/16/21 TIME: 09:00 Subjective Patient remains tachypneic. Oxygen requirement increased to 75% while on BiPAP. She appears to be anxious Vitals Vital Signs Date Time Temp Pulse Resp B/P (MAP) Pulse Ox O2 Delivery O2 Flow Rate FiO2 02/16/21 05:00 94 BiPAP/CPAP 02/16/21 03:00 97.6 70 36 133/66 (88) 15.0 97.6 Comments Visual exam done due to COVID-19. Patient and mild distress., Anxious. No paradoxical breathing. No skin rash or leg edema. General: Mild Distress Labs Laboratory Tests Test 02/14/21 09:02 02/14/21 12:26 02/14/21 18:26 02/14/21 19:47 Glucose (Fingerstick) 161 mg/dL (70-99) 149 mg/dL (70-99) 113 mg/dL (70-99) 101 mg/dL (70-99) Test 02/15/21 00:59 02/15/21 02:20 02/15/21 08:06 02/15/21 11:35 Glucose (Fingerstick) 166 mg/dL (70-99) 222 mg/dL (70-99) O2 Saturation 93 % (92-99) Arterial Blood pH 7.43 (7.35-7.45) Arterial Blood pCO2 at Patient Temp 39 mmHg (35-46) Arterial Blood pO2 at Patient Temp 69 mmHg (75-108) Arterial Blood HCO3 25 mmol/L (21-28) Arterial Blood Base Excess 1 mmol/L (-3-3) FiO2 65 (bipap) White Blood Count 9.7 x10^3/uL (4.0-11.0) Red Blood Count 4.24 x10^6/uL (3.50-5.40) Hemoglobin 12.8 g/dL (12.0-15.5) Hematocrit 37.1 % (36.0-47.0) Mean Corpuscular Volume 88 fL (79-100) Mean Corpuscular Hemoglobin 30 pg (25-35) Mean Corpuscular Hemoglobin Concent 34 g/dL (31-37) Red Cell Distribution Width 13.3 % (11.5-14.5) Platelet Count 256 x10^3/uL (140-400) Neutrophils (%) (Auto) 82 % (31-73) Lymphocytes (%) (Auto) 8 % (24-48) Monocytes (%) (Auto) 9 % (0-9) Eosinophils (%) (Auto) 0 % (0-3) Basophils (%) (Auto) 1 % (0-3) Neutrophils # (Auto) 7.9 x10^3/uL (1.8-7.7) Lymphocytes # (Auto) 0.8 x10^3/uL (1.0-4.8) Monocytes # (Auto) 0.9 x10^3/uL (0.0-1.1) Eosinophils # (Auto) 0.0 x10^3/uL (0.0-0.7) Basophils # (Auto) 0.1 x10^3/uL (0.0-0.2) Sodium Level 134 mmol/L (136-145) Potassium Level 3.5 mmol/L (3.5-5.1) Chloride Level 101 mmol/L (98-107) Carbon Dioxide Level 28 mmol/L (21-32) Anion Gap 5 (6-14) Blood Urea Nitrogen 21 mg/dL (7-20) Creatinine 1.2 mg/dL (0.6-1.0) Estimated GFR (Cockcroft-Gault) 48.6 Glucose Level 223 mg/dL (70-99) Calcium Level 7.6 mg/dL (8.5-10.1) Total Bilirubin 0.4 mg/dL (0.2-1.0) Direct Bilirubin 0.2 mg/dL (0.0-0.2) Aspartate Amino Transf (AST/SGOT) 173 U/L (15-37) Alanine Aminotransferase (ALT/SGPT) 94 U/L (14-59) Alkaline Phosphatase 108 U/L (46-116) C-Reactive Protein, Quantitative 53.1 mg/L (0-3.3) Total Protein 5.2 g/dL (6.4-8.2) Albumin 1.8 g/dL (3.4-5.0) Test 02/15/21 12:31 02/15/21 16:17 02/15/21 20:49 02/16/21 07:27 Glucose (Fingerstick) 213 mg/dL (70-99) 290 mg/dL (70-99) 250 mg/dL (70-99) 164 mg/dL (70-99) Laboratory Tests Test 02/15/21 11:35 02/15/21 12:31 02/15/21 16:17 02/15/21 20:49 White Blood Count 9.7 x10^3/uL (4.0-11.0) Red Blood Count 4.24 x10^6/uL (3.50-5.40) Hemoglobin 12.8 g/dL (12.0-15.5) Hematocrit 37.1 % (36.0-47.0) Mean Corpuscular Volume 88 fL (79-100) Mean Corpuscular Hemoglobin 30 pg (25-35) Mean Corpuscular Hemoglobin Concent 34 g/dL (31-37) Red Cell Distribution Width 13.3 % (11.5-14.5) Platelet Count 256 x10^3/uL (140-400) Neutrophils (%) (Auto) 82 % (31-73) Lymphocytes (%) (Auto) 8 % (24-48) Monocytes (%) (Auto) 9 % (0-9) Eosinophils (%) (Auto) 0 % (0-3) Basophils (%) (Auto) 1 % (0-3) Neutrophils # (Auto) 7.9 x10^3/uL (1.8-7.7) Lymphocytes # (Auto) 0.8 x10^3/uL (1.0-4.8) Monocytes # (Auto) 0.9 x10^3/uL (0.0-1.1) Eosinophils # (Auto) 0.0 x10^3/uL (0.0-0.7) Basophils # (Auto) 0.1 x10^3/uL (0.0-0.2) Sodium Level 134 mmol/L (136-145) Potassium Level 3.5 mmol/L (3.5-5.1) Chloride Level 101 mmol/L (98-107) Carbon Dioxide Level 28 mmol/L (21-32) Anion Gap 5 (6-14) Blood Urea Nitrogen 21 mg/dL (7-20) Creatinine 1.2 mg/dL (0.6-1.0) Estimated GFR (Cockcroft-Gault) 48.6 Glucose Level 223 mg/dL (70-99) Calcium Level 7.6 mg/dL (8.5-10.1) Total Bilirubin 0.4 mg/dL (0.2-1.0) Direct Bilirubin 0.2 mg/dL (0.0-0.2) Aspartate Amino Transf (AST/SGOT) 173 U/L (15-37) Alanine Aminotransferase (ALT/SGPT) 94 U/L (14-59) Alkaline Phosphatase 108 U/L (46-116) C-Reactive Protein, Quantitative 53.1 mg/L (0-3.3) Total Protein 5.2 g/dL (6.4-8.2) Albumin 1.8 g/dL (3.4-5.0) Glucose (Fingerstick) 213 mg/dL (70-99) 290 mg/dL (70-99) 250 mg/dL (70-99) Test 02/16/21 07:27 Glucose (Fingerstick) 164 mg/dL (70-99) Medications Active Scripts Medications Dose Route/Sig Max Daily Dose Days Date Category Novolog Flexpen (Insulin Aspart) 100 Unit/1 Ml Insuln.pen 3-7 SQ TIDACHC 02/07/21 Reported Lisinopril 5 Mg Tablet 1 Tab PO DAILY 02/07/21 Reported Lantus Solostar (Insulin Glargine,Hum.rec.anlog) 100 Unit/1 Ml Insuln.pen 5 Unit SQ QHS 04/09/15 Reported Atorvastatin Calcium 40 Mg Tablet 40 Mg PO HS 04/09/15 Reported Impression . IMPRESSION: 1. Acute hypoxic respiratory failure secondary to COVID-19 viral pneumonia/acute lung injury and early acute respiratory distress syndrome. Oxygen requirement slowly worsening. Currently on 75% BiPAP 2. Nonsmoker. 3. Abnormal chest x-ray consistent with COVID-19 viral pneumonia. 4. Diabetic ketoacidosis as initial presentation, currently better. 5. Underlying obesity contributing to hypoxia as well. Plan . 1. Continue present BiPAP at 75% of FIO2. 2. The patient is at risk for mechanical ventilation. We will be watching her closely. As soon as the ICU bed opens up we will transfer her to the ICU. 3. Follow oxygen saturations, keep 92% and above. 4. Continue Decadron. 5. Continue remdesivir. 6. Empiric antibiotic. 7. Lovenox for DVT prophylaxis. 8. Discussed with RN. Discussed with the patient her clinical condition.d/w Dr Jackson 9. We will follow along with you. EMILY POSADA MD Feb 16, 2021 09:01
[2021-02-16] MEDS: ENOXAPARIN 40 MG/0.4 ML SYRINGE. SQ SCH ×2 (09:03→21:59)
[2021-02-16] MEDS: CARVEDILOL 6.25 MG TABLET. PO SCH ×2 (09:06→17:00)
[2021-02-16] MEDS: guaiFENesin DM 200MG/20MG 10 ML SYRUP PO PRN (09:06)
[2021-02-16] MEDS: LISINOPRIL 5 MG TABLET. PO SCH (09:06)
[2021-02-16] MEDS: DEXAMETHASONE SOD PHOS 4 MG/ML VIAL IVP SCH (09:07)
[2021-02-16] MEDS: BENZONATATE 100 MG CAPSULE. PO SCH ×3 (09:07→22:07)
[2021-02-16] MEDS: INSULIN GLARGINE SYRINGE. SQ SCH ×2 (09:09→21:00)
--- NOTE | 2021-02-16 11:00 | NUR ---
THis RN gave report to Renae ALEXIS in ICU. Patient and sister informed. Brian [phone].
[2021-02-16 11:51] LABS: BASO % 0 % (0-3); EOS % 0 % (0-3); HEMATOCRIT 32.7 % (36.0-47.0); HEMOGLOBIN 11.2 g/dL (12.0-15.5); LYMPH # 0.7 x10^3/uL (1.0-4.8); LYMPH % 6 % (24-48); MEAN CORPUSCULAR HEMOGLOBIN 30 pg (25-35); MEAN CORPUSCULAR HGB CONC 34 g/dL (31-37); MEAN CORPUSCULAR VOLUME 88 fL (79-100); MONO # 0.9 x10^3/uL (0.0-1.1); MONO % 7 % (0-9); NEUT # 10.8 x10^3/uL (1.8-7.7); NEUT % 86 % (31-73); PLATELET COUNT 150 x10^3/uL (140-400); RED BLOOD COUNT 3.72 x10^6/uL (3.50-5.40); RED CELL DISTRIBUTION WIDTH 13.2 % (11.5-14.5); WHITE BLOOD COUNT 12.5 x10^3/uL (4.0-11.0)
[2021-02-16] MEDS ORDERED: ATROPINE 0.5 MG/5 ML DISP.SYRINGE. IV PRN (12:00)
[2021-02-16] MEDS ORDERED: IV NORMAL SALINE 500ML BAG 500 ML IV PRN (12:00)
[2021-02-16] MEDS: DEXMEDETOMIDINE 400 MCG in IV NORMAL SALINE 100ML 96 ML IV PRN ×3 (12:15→22:01)
[2021-02-16] MEDS: IV NORMAL SALINE 1000ML BAG 1,000 ML IV SCH ×2 (12:15→19:00)
[2021-02-16 12:32] LABS: % BANDS 2 % (0-9); % LYMPHS 6 % (24-48); % MONOS 5 % (0-10); % SEGS 87 % (35-66)
[2021-02-16 12:34] LABS: PLT ESTIMATE ADEQUATE (ADEQUATE)
[2021-02-16 12:51] LABS: CALCIUM 7.7 mg/dL (8.5-10.1); POTASSIUM 3.4 mmol/L (3.5-5.1)
--- NOTE | 2021-02-16 13:50 | PDOC ---
[facility] [facility] PROGRESS NOTE Date of Service DOS: DATE: 02/16/21 TIME: 13:45 Chief Complaint Chief Complaint COVID-19 positive infection Tractable nausea vomiting DKA Anion gap metabolic acidosis Acute electrolyte derangementhyponatremia, hypochloremia due to volume depletion Hyperglycemia uncontrolled BOB due to vasomotor nephropathy Erythrocytosis 7 for diabetic gastroparesis Continue IV fluids and advance diet as tolerated. IV Compazine or Reglan for nausea ABG on admission pending urine and blood ketones Continue sliding-scale and Accu-Cheks every 4 hours When glucose is less than 200, AG is closed, patient able to eat, and HCO3 greater than 15, then transition with subcu insulin 0.1 units/kg every 2 hours for at least 2 hours Switch to one half NS at half the rate if NA is normal or elevated As needed D50 W or add D5 to IV fluids if Accu-Cheks are less than 200 Maintain potassium between 3.5-5, if potassium falls below 3.3, stop insulin and add 40 mEq/h of potassium Maintained p.o. 3 greater than 1.0 If arterial pH is below 6.9, give 100 mEq of sodium bicarb +20 mEq of potassium Every 2-4 hours BMP and a be checked until stable Every hour Accu-Cheks while on insulin O2 supplementation if patient develops hypoxia SCD for DVT prophylaxis Protonix GI prophylaxis ADA diet Full code Discussed with RN and SW Disposition inpatient management as above Surrogate decision maker is Brian Whitmore History of Present Illness History of Present Illness 46 year old female who presents with nausea/vomiting since 7 AM yesterday morning. Patient states that her recently tested positive for Covid. She states that he "coughed in my face because he thought it was funny." She reports subjective fevers and chills and nausea/vomiting. Denies sore throat, cough, shortness of breath. No chest pain. Does have some upper abdominal discomfort after vomiting, that she attributes to muscular strain. She is not vaccinated for Covid. 02/08/2021 No acute events overnight. Patient seen and examined bedside and resting comfortably. Continues to complain of nausea not able to tolerate any diet at this time. Saturating 98% on room air. Patient's chart, labs, images were r eviewed and discussed with RN 02/09/2021: Afebrile, currently breathing on room air. Still with complaints of nausea and vomiting x3 today. States that she has history of similar symptoms that have been mildly improved with IV Dilaudid. Discussed with patient that I will provide IV Dilaudid to help with her nausea, but she will not discharged on this medication. Will obtain 6-minute walk to evaluate oxygen requirements. Upon discharge, I recommend self quarantine for 10 days for resolution of her symptoms. Discussed with patient that she will discharge tomorrow. 02/10/2021: Patient febrile today with T-max 102.2 F. She still admits to nausea, denies any further vomiting. We will continue to provide supportive care and monitor for any recurrent fevers overnight. Patient continues to improve may discharge tomorrow to continue self-isolation. 02/11/2021: Febrile overnight, T-max 102.3 F. She did become hypoxic overnight, currently breathing on 4 L nasal cannula. Also admits to associated vomiting or diarrhea overnight. Discussed with RN, will initiate remdesivir and closely monitor LFTs. We will also treat with IV Decadron, and prophylactic antibiotics. 02/12/2021: Low-grade fever overnight, T-max 99.7. Currently breathing on room air. Will discontinue remdesivir, steroids, and antibiotics; will observe overnight. Still with complaints of vomiting x1 and diarrhea. We will continue to provide supportive care and hope to discharge in the next day or so. 02/13/2021: Afebrile. Still complains of intermittent diarrhea. At the time of my evaluation she was breathing on 6 L nasal cannula; this is somewhat misleading as patient states that she did not feel short of breath but was placed on 6 L by nursing staff overnight. Will have RN reassess her oxygen re quirements as I did anticipate discharging today. 02/14/2021: Afebrile, currently breathing on 8 L nasal cannula. There has been some misleading documentation, chart oxygen this patient is requiring. Discussed with RN, will resume remdesivir to complete total of 5 days. Continue to monitor LFTs. Will add steroids, Rocephin, and azithromycin. Continue supportive care. 02/15/2021: Afebrile. Became much more hypoxic overnight, requiring BiPAP. At the time of my evaluation she is still breathing on BiPAP. Consultation was placed to pulmonology. Had discussion with Dr. Myrick about initiating Tocilizumab, but currently there is 1 more person in the ER that would be more deserving. When stocks are replenished, she will be first inline to receive this medication. She is also first-line to be transferred down to ICU. Critical care time 30 minutes spent reviewing labs, reviewing imaging, d iscussion with Dr. Myrick, and discussion with RN. 02/16/2021 No acute events overnight. Patient becoming more hypoxic saturating 94% and requiring BiPAP. Patient will be transferred to the ICU at this time. For worsening clinical status. Discussed with pulmonary. Patient's chart, labs, images were reviewed and discussed with RN Vitals/I&O Vitals/I&O: Vital Signs Date Time Temp Pulse Resp B/P (MAP) Pulse Ox O2 Delivery O2 Flow Rate FiO2 02/16/21 13:14 95 BiPAP/CPAP 02/16/21 11:49 99.4 71 60 146/59 (88) 99.4 02/16/21 07:00 15.0 I & O 02/15/21 02/15/21 02/16/21 15:00 23:00 07:00 Intake Total 1100 ml 200 ml Balance 1100 ml 200 ml Physical Exam General: Alert, Oriented X3, Cooperative, No acute distress Heart: Regular rate Abdomen: Normal bowel sounds Extremities: No clubbing, No edema Skin: No rashes, No significant lesion Labs Labs: Laboratory Tests Test 02/15/21 16:17 02/15/21 20:49 02/16/21 07:27 02/16/21 07:41 Glucose (Fingerstick) 290 mg/dL (70-99) 250 mg/dL (70-99) 164 mg/dL (70-99) White Blood Count 12.5 x10^3/uL (4.0-11.0) Red Blood Count 3.72 x10^6/uL (3.50-5.40) Hemoglobin 11.2 g/dL (12.0-15.5) Hematocrit 32.7 % (36.0-47.0) Mean Corpuscular Volume 88 fL (79-100) Mean Corpuscular Hemoglobin 30 pg (25-35) Mean Corpuscular Hemoglobin Concent 34 g/dL (31-37) Red Cell Distribution Width 13.2 % (11.5-14.5) Platelet Count 150 x10^3/uL (140-400) Neutrophils (%) (Auto) 86 % (31-73) Lymphocytes (%) (Auto) 6 % (24-48) Monocytes (%) (Auto) 7 % (0-9) Eosinophils (%) (Auto) 0 % (0-3) Basophils (%) (Auto) 0 % (0-3) Neutrophils # (Auto) 10.8 x10^3/uL (1.8-7.7) Lymphocytes # (Auto) 0.7 x10^3/uL (1.0-4.8) Monocytes # (Auto) 0.9 x10^3/uL (0.0-1.1) Eosinophils # (Auto) 0.0 x10^3/uL (0.0-0.7) Basophils # (Auto) 0.0 x10^3/uL (0.0-0.2) Segmented Neutrophils % 87 % (35-66) Band Neutrophils % 2 % (0-9) Lymphocytes % 6 % (24-48) Monocytes % 5 % (0-10) Platelet Estimate Adequate (ADEQUATE) Test 02/16/21 10:30 02/16/21 12:30 Glucose (Fingerstick) 147 mg/dL (70-99) Sodium Level 134 mmol/L (136-145) Potassium Level 3.4 mmol/L (3.5-5.1) Chloride Level 102 mmol/L (98-107) Carbon Dioxide Level 30 mmol/L (21-32) Anion Gap 2 (6-14) Blood Urea Nitrogen 17 mg/dL (7-20) Creatinine 1.0 mg/dL (0.6-1.0) Estimated GFR (Cockcroft-Gault) 60.0 Glucose Level 136 mg/dL (70-99) Calcium Level 7.7 mg/dL (8.5-10.1) C-Reactive Protein, Quantitative 29.0 mg/L (0-3.3) Assessment and Plan Assessmemt and Plan Problems Medical Problems: (1) Ketoacidosis Status: Acute Comment Review of Relevant I have reviewed the following items mazin (where applicable) has been applied. Medications: Current Medications Medications (Trade) Dose Ordered Sig/Pepe Route PRN Reason Start Time Stop Time Status Last Admin Dose Admin Alteplase, Recombinant (Cathflo For Central Catheter Clearance) 1 mg 1X ONCE INT CAT 02/16/21 08:00 02/16/21 08:01 DC 02/16/21 08:41 Dexmedetomidine HCl 400 mcg/ Sodium Chloride 100 ml @ 0 mls/hr CONT PRN IV PER PROTOCOL 02/16/21 12:00 02/16/21 12:15 Justifications for Admission Other Justification SRIKANTH DAVIS MD Feb 16, 2021 13:50
[2021-02-16] MEDS: AZITHROMYCIN 250 MG in IV NORMAL SALINE 250ML 250 ML IV SCH (14:46)
--- NOTE | 2021-02-16 15:51 | NUR ---
SS following up with discharge planning. SS reviewed pt chart and discussed with pt RN. Pt is currently on the BIPAP at 75%. COVID19 positive. Pt on Precedex. Pt on IV Remdesivir, IV Azithromycin, IV Rocephin, and IV Decadron. SS will continue to follow for discharge planning.
[2021-02-16] MEDS: ONDANSETRON PF 4 MG/2 ML VIAL. IVP PRN (15:58)
[2021-02-16] MEDS: REMDESIVIR 100mg in NORMAL SALINE 250ML X 4 DAYS IV SCH (15:58)
[2021-02-16] MEDS: cefTRIAXone IV Push 1 GM VIAL. IVP SCH (16:07)
[2021-02-16] MEDS ORDERED: FUROSEMIDE 20 MG/2 ML VIAL. IVP ONE ×2 (18:30→22:15)
[2021-02-16] MEDS: FAMOTIDINE 20 MG/2 ML VIAL IVP SCH (22:00)
[2021-02-16] MEDS: hydrALAZINE 20 MG/ML VIAL. IVP PRN (22:01)
[2021-02-16] MEDS: LACTOBACILLUS RHAMNOSUS GG 1 CAPSULE. PO SCH (22:02)
[2021-02-16] MEDS: ATORVASTATIN CALCIUM 40 MG TABLET. PO SCH (22:07)
[2021-02-17] VITALS (24 sets, daily range): BP systolic 106–197; BP diastolic 54–96
[2021-02-17] MEDS: DEXMEDETOMIDINE 400 MCG in IV NORMAL SALINE 100ML 96 ML IV PRN ×4 (01:35→20:27)
[2021-02-17] MEDS: IV NORMAL SALINE 1000ML BAG 1,000 ML IV SCH (05:00)
--- NOTE | 2021-02-17 05:48 | PDOC ---
PULMONARY PROGRESS NOTES DATE: 02/17/21 TIME: 05:43 Subjective Patient remains on BiPAP support, 100% Now on Precedex drip Afebrile overnight Hypertensive Vitals Vital Signs Date Time Temp Pulse Resp B/P (MAP) Pulse Ox O2 Delivery O2 Flow Rate FiO2 02/17/21 05:00 53 52 176/91 (119) 100 BiPAP/CPAP 02/17/21 04:00 98.2 98.2 02/16/21 20:00 15.0 Comments Visual exam done due to COVID-19. Patient and mild distress., Anxious. No paradoxical breathing. No skin rash or leg edema. General: Mild Distress Labs Laboratory Tests Test 02/15/21 08:06 02/15/21 11:35 02/15/21 12:31 02/15/21 16:17 Glucose (Fingerstick) 222 mg/dL (70-99) 213 mg/dL (70-99) 290 mg/dL (70-99) White Blood Count 9.7 x10^3/uL (4.0-11.0) Red Blood Count 4.24 x10^6/uL (3.50-5.40) Hemoglobin 12.8 g/dL (12.0-15.5) Hematocrit 37.1 % (36.0-47.0) Mean Corpuscular Volume 88 fL (79-100) Mean Corpuscular Hemoglobin 30 pg (25-35) Mean Corpuscular Hemoglobin Concent 34 g/dL (31-37) Red Cell Distribution Width 13.3 % (11.5-14.5) Platelet Count 256 x10^3/uL (140-400) Neutrophils (%) (Auto) 82 % (31-73) Lymphocytes (%) (Auto) 8 % (24-48) Monocytes (%) (Auto) 9 % (0-9) Eosinophils (%) (Auto) 0 % (0-3) Basophils (%) (Auto) 1 % (0-3) Neutrophils # (Auto) 7.9 x10^3/uL (1.8-7.7) Lymphocytes # (Auto) 0.8 x10^3/uL (1.0-4.8) Monocytes # (Auto) 0.9 x10^3/uL (0.0-1.1) Eosinophils # (Auto) 0.0 x10^3/uL (0.0-0.7) Basophils # (Auto) 0.1 x10^3/uL (0.0-0.2) Sodium Level 134 mmol/L (136-145) Potassium Level 3.5 mmol/L (3.5-5.1) Chloride Level 101 mmol/L (98-107) Carbon Dioxide Level 28 mmol/L (21-32) Anion Gap 5 (6-14) Blood Urea Nitrogen 21 mg/dL (7-20) Creatinine 1.2 mg/dL (0.6-1.0) Estimated GFR (Cockcroft-Gault) 48.6 Glucose Level 223 mg/dL (70-99) Calcium Level 7.6 mg/dL (8.5-10.1) Total Bilirubin 0.4 mg/dL (0.2-1.0) Direct Bilirubin 0.2 mg/dL (0.0-0.2) Aspartate Amino Transf (AST/SGOT) 173 U/L (15-37) Alanine Aminotransferase (ALT/SGPT) 94 U/L (14-59) Alkaline Phosphatase 108 U/L (46-116) C-Reactive Protein, Quantitative 53.1 mg/L (0-3.3) Total Protein 5.2 g/dL (6.4-8.2) Albumin 1.8 g/dL (3.4-5.0) Test 02/15/21 20:49 02/16/21 07:27 02/16/21 07:41 02/16/21 10:30 Glucose (Fingerstick) 250 mg/dL (70-99) 164 mg/dL (70-99) 147 mg/dL (70-99) White Blood Count 12.5 x10^3/uL (4.0-11.0) Red Blood Count 3.72 x10^6/uL (3.50-5.40) Hemoglobin 11.2 g/dL (12.0-15.5) Hematocrit 32.7 % (36.0-47.0) Mean Corpuscular Volume 88 fL (79-100) Mean Corpuscular Hemoglobin 30 pg (25-35) Mean Corpuscular Hemoglobin Concent 34 g/dL (31-37) Red Cell Distribution Width 13.2 % (11.5-14.5) Platelet Count 150 x10^3/uL (140-400) Neutrophils (%) (Auto) 86 % (31-73) Lymphocytes (%) (Auto) 6 % (24-48) Monocytes (%) (Auto) 7 % (0-9) Eosinophils (%) (Auto) 0 % (0-3) Basophils (%) (Auto) 0 % (0-3) Neutrophils # (Auto) 10.8 x10^3/uL (1.8-7.7) Lymphocytes # (Auto) 0.7 x10^3/uL (1.0-4.8) Monocytes # (Auto) 0.9 x10^3/uL (0.0-1.1) Eosinophils # (Auto) 0.0 x10^3/uL (0.0-0.7) Basophils # (Auto) 0.0 x10^3/uL (0.0-0.2) Segmented Neutrophils % 87 % (35-66) Band Neutrophils % 2 % (0-9) Lymphocytes % 6 % (24-48) Monocytes % 5 % (0-10) Platelet Estimate Adequate (ADEQUATE) Test 02/16/21 12:30 02/16/21 22:56 Sodium Level 134 mmol/L (136-145) Potassium Level 3.4 mmol/L (3.5-5.1) Chloride Level 102 mmol/L (98-107) Carbon Dioxide Level 30 mmol/L (21-32) Anion Gap 2 (6-14) Blood Urea Nitrogen 17 mg/dL (7-20) Creatinine 1.0 mg/dL (0.6-1.0) Estimated GFR (Cockcroft-Gault) 60.0 Glucose Level 136 mg/dL (70-99) Calcium Level 7.7 mg/dL (8.5-10.1) C-Reactive Protein, Quantitative 29.0 mg/L (0-3.3) Glucose (Fingerstick) 167 mg/dL (70-99) Laboratory Tests Test 02/16/21 07:27 02/16/21 07:41 02/16/21 10:30 02/16/21 12:30 Glucose (Fingerstick) 164 mg/dL (70-99) 147 mg/dL (70-99) White Blood Count 12.5 x10^3/uL (4.0-11.0) Red Blood Count 3.72 x10^6/uL (3.50-5.40) Hemoglobin 11.2 g/dL (12.0-15.5) Hematocrit 32.7 % (36.0-47.0) Mean Corpuscular Volume 88 fL (79-100) Mean Corpuscular Hemoglobin 30 pg (25-35) Mean Corpuscular Hemoglobin Concent 34 g/dL (31-37) Red Cell Distribution Width 13.2 % (11.5-14.5) Platelet Count 150 x10^3/uL (140-400) Neutrophils (%) (Auto) 86 % (31-73) Lymphocytes (%) (Auto) 6 % (24-48) Monocytes (%) (Auto) 7 % (0-9) Eosinophils (%) (Auto) 0 % (0-3) Basophils (%) (Auto) 0 % (0-3) Neutrophils # (Auto) 10.8 x10^3/uL (1.8-7.7) Lymphocytes # (Auto) 0.7 x10^3/uL (1.0-4.8) Monocytes # (Auto) 0.9 x10^3/uL (0.0-1.1) Eosinophils # (Auto) 0.0 x10^3/uL (0.0-0.7) Basophils # (Auto) 0.0 x10^3/uL (0.0-0.2) Segmented Neutrophils % 87 % (35-66) Band Neutrophils % 2 % (0-9) Lymphocytes % 6 % (24-48) Monocytes % 5 % (0-10) Platelet Estimate Adequate (ADEQUATE) Sodium Level 134 mmol/L (136-145) Potassium Level 3.4 mmol/L (3.5-5.1) Chloride Level 102 mmol/L (98-107) Carbon Dioxide Level 30 mmol/L (21-32) Anion Gap 2 (6-14) Blood Urea Nitrogen 17 mg/dL (7-20) Creatinine 1.0 mg/dL (0.6-1.0) Estimated GFR (Cockcroft-Gault) 60.0 Glucose Level 136 mg/dL (70-99) Calcium Level 7.7 mg/dL (8.5-10.1) C-Reactive Protein, Quantitative 29.0 mg/L (0-3.3) Test 02/16/21 22:56 Glucose (Fingerstick) 167 mg/dL (70-99) Medications Active Scripts Medications Dose Route/Sig Max Daily Dose Days Date Category Novolog Flexpen (Insulin Aspart) 100 Unit/1 Ml Insuln.pen 3-7 SQ TIDACHC 02/07/21 Reported Lisinopril 5 Mg Tablet 1 Tab PO DAILY 02/07/21 Reported Lantus Solostar (Insulin Glargine,Hum.rec.anlog) 100 Unit/1 Ml Insuln.pen 5 Unit SQ QHS 04/09/15 Reported Atorvastatin Calcium 40 Mg Tablet 40 Mg PO HS 04/09/15 Reported Impression . IMPRESSION: 1. Acute hypoxic respiratory failure secondary to COVID-19 viral pneumonia/acute lung injury and early acute respiratory distress syndrome. Oxygen requirement slowly worsening. 2. Nonsmoker. 3. Abnormal chest x-ray consistent with COVID-19 viral pneumonia. 4. Diabetic ketoacidosis as initial presentation, currently better. 5. Underlying obesity contributing to hypoxia as well. Plan . Updated 02/17/2021 Continue current supplemental oxygen with BiPAP at 100%, closely monitoring the need for intubation IPAP settings reviewed, make changes as necessary Follow chest x-ray/ABG as needed Continue IV steroids will need full 10 days course started 02/15/2021 Continue empiric antibiotics with Rocephin and azithromycin Continue remdesivir for full course Diabetes per PCP HTN per PCP Consulted dietitian for nutritional support DVT/GI prophylaxis: Lovenox Discussed with RN and RT Addendum;. Patient reevaluated again. She is unable to tolerate BiPAP at 100% FiO2. We spoke to her about the need for intubation and she agreed to it. She is now intubated on assist control mode. She will be sedated. Will obtain chest x-ray post intubation and follow ABGs and make necessary adjustments. I have called patient's and informed about her condition Critical care time 30 minutes 1. Continue present BiPAP at 75% of FIO2. 2. The patient is at risk for mechanical ventilation. We will be watching her closely. As soon as the ICU bed opens up we will transfer her to the ICU. 3. Follow oxygen saturations, keep 92% and above. 4. Continue Decadron. 5. Continue remdesivir. 6. Empiric antibiotic. 7. Lovenox for DVT prophylaxis. 8. Discussed with RN. Discussed with the patient her clinical condition.d/w Dr Jackson 9. We will follow along with you. EMILY POSADA MD Feb 17, 2021 05:48
[2021-02-17] MEDS: INSULIN LISPRO 300 UNITS/3 ML VIAL. SQ SCH ×8 (06:00→17:02)
[2021-02-17 06:04] LABS: BASO % 0 % (0-3); EOS % 0 % (0-3); HEMATOCRIT 40.5 % (36.0-47.0); HEMOGLOBIN 13.5 g/dL (12.0-15.5); LYMPH # 0.5 x10^3/uL (1.0-4.8); LYMPH % 5 % (24-48); MEAN CORPUSCULAR HEMOGLOBIN 29 pg (25-35); MEAN CORPUSCULAR HGB CONC 33 g/dL (31-37); MEAN CORPUSCULAR VOLUME 88 fL (79-100); MONO # 0.7 x10^3/uL (0.0-1.1); MONO % 6 % (0-9); NEUT # 9.9 x10^3/uL (1.8-7.7); NEUT % 89 % (31-73); PLATELET COUNT 163 x10^3/uL (140-400); RED CELL DISTRIBUTION WIDTH 13.5 % (11.5-14.5); WHITE BLOOD COUNT 11.2 x10^3/uL (4.0-11.0)
[2021-02-17 06:11] LABS: CALCIUM 8.2 mg/dL (8.5-10.1); POTASSIUM 3.5 mmol/L (3.5-5.1)
[2021-02-17] MEDS: LABETALOL 20 MG/4 ML DISP.SYRIN. IVP PRN (07:19)
[2021-02-17] MEDS: CARVEDILOL 6.25 MG TABLET. PO SCH ×3 (08:00→16:57)
--- NOTE | 2021-02-17 08:32 | PDOC ---
[facility] PROGRESS NOTE Date of Service DOS: DATE: 02/17/21 TIME: 08:29 Chief Complaint Chief Complaint COVID-19 positive infection Tractable nausea vomiting DKA Anion gap metabolic acidosis Acute electrolyte derangementhyponatremia, hypochloremia due to volume depletion Hyperglycemia uncontrolled OBB due to vasomotor nephropathy Erythrocytosis Reglan for diabetic gastroparesis Continue IV fluids and advance diet as tolerated. IV Compazine or Reglan for nausea ABG on admission pending urine and blood ketones Continue sliding-scale and Accu-Cheks every 4 hours When glucose is less than 200, AG is closed, patient able to eat, and HCO3 greater than 15, then transition with subcu insulin 0.1 units/kg every 2 hours for at least 2 hours Switch to one half NS at half the rate if NA is normal or elevated As needed D50 W or add D5 to IV fluids if Accu-Cheks are less than 200 Maintain potassium between 3.5-5, if potassium falls below 3.3, stop insulin and add 40 mEq/h of potassium Maintained p.o. 3 greater than 1.0 If arterial pH is below 6.9, give 100 mEq of sodium bicarb +20 mEq of potassium Every 2-4 hours BMP and a be checked until stable Every hour Accu-Cheks while on insulin SCD for DVT prophylaxis Protonix GI prophylaxis ADA diet Full code Discussed with RN and SW Disposition inpatient management as above Surrogate decision maker is Brain Whitmore History of Present Illness History of Present Illness 46 year old female who presents with nausea/vomiting since 7 AM yesterday morning. Patient states that her recently tested positive for Covid. She states that he "coughed in my face because he thought it was funny." She reports subjective fevers and chills and nausea/vomiting. Denies sore throat, cough, shortness of breath. No chest pain. Does have some upper abdominal discomfort after vomiting, that she attributes to muscular strain. She is not vaccinated for Covid. 02/08/2021 No acute events overnight. Patient seen and examined bedside and resting comfortably. Continues to complain of nausea not able to tolerate any diet at this time. Saturating 98% on room air. Patient's chart, labs, images were reviewed and discussed with RN 02/09/2021: Afebrile, currently breathing on room air. Still with complaints of nausea and vomiting x3 today. States that she has history of similar symptoms that have been mildly improved with IV Dilaudid. Discussed with patient that I will provide IV Dilaudid to help with her nausea, but she will not discharged on this medication. Will obtain 6-minute walk to evaluate oxygen requirements. Upon discharge, I recommend self quarantine for 10 days for resolution of her symptoms. Discussed with patient that she will discharge tomorrow. 02/10/2021: Patient febrile today with T-max 102.2 F. She still admits to nausea, denies any further vomiting. We will continue to provide supportive care and monitor for any recurrent fevers overnight. Patient continues to improve may discharge tomorrow to continue self-isolation. 02/11/2021: Febrile overnight, T-max 102.3 F. She did become hypoxic overnight, currently breathing on 4 L nasal cannula. Also admits to associated vomiting or diarrhea overnight. Discussed with RN, will initiate remdesivir and closely monitor LFTs. We will also treat with IV Decadron, and prophylactic antibiotics. 02/12/2021: Low-grade fever overnight, T-max 99.7. Currently breathing on room air. Will discontinue remdesivir, steroids, and antibiotics; will observe overnight. Still with complaints of vomiting x1 and diarrhea. We will continue to provide supportive care and hope to discharge in the next day or so. 02/13/2021: Afebrile. Still complains of intermittent diarrhea. At the time of my evaluation she was breathing on 6 L nasal cannula; this is somewhat misleading as patient states that she did not feel short of breath but was placed on 6 L by nursing staff overnight. Will have RN reassess her oxygen requirements as I did anticipate discharging today. 02/14/2021: Afebrile, currently breathing on 8 L nasal cannula. There has been some misleading documentation, chart oxygen this patient is requiring. Discussed with RN, will resume remdesivir to complete total of 5 days. Continue to monitor LFTs. Will add steroids, Rocephin, and azithromycin. Continue supportive care. 02/15/2021: Afebrile. Became much more hypoxic overnight, requiring BiPAP. At the time of my evaluation she is still breathing on BiPAP. Consultation was placed to pulmonology. Had discussion with Dr. Myrick about initiating Tocilizumab, but currently there is 1 more person in the ER that would be more deserving. When stocks are replenished, she will be first inline to receive this medication. She is also first-line to be transferred down to ICU. Critical care time 30 minutes spent reviewing labs, reviewing imaging, discussion with Dr. Myrick, and discussion with RN. 02/16/2021 No acute events overnight. Patient becoming more hypoxic saturating 94% and requiring BiPAP. Patient will be transferred to the ICU at this time. For worsening clinical status. Discussed with pulmonary. Patient's chart, labs, images were reviewed and discussed with RN 02/17/21 Transferred to ICU yesterday afternoon. Seen and examined at bedside she remains on 100% FiO2 on BiPAP. Respirations do appear somewhat labored. Suspect intubation may be impending. We will closely monitor. Increase lisinopril to 20 today. Plan of care discussed with bedside RN. Vitals/I&O Vitals/I&O: Vital Signs Date Time Temp Pulse Resp B/P (MAP) Pulse Ox O2 Delivery O2 Flow Rate FiO2 02/17/21 08:25 96.6 54 37 177/81 (113) 100 BiPAP/CPAP 96.6 02/17/21 08:00 15.0 I & O 02/16/21 02/16/21 02/17/21 15:00 23:00 07:00 Intake Total 120 ml 662 ml 297 ml Output Total 100 ml 4200 ml 950 ml Balance 20 ml -3538 ml -653 ml Physical Exam General: Alert, Cooperative, moderate distress Heart: Regular rate Lungs: Other (Labored) Abdomen: Normal bowel sounds Extremities: No clubbing, No edema Skin: No rashes, No significant lesion Labs Labs: Laboratory Tests Test 02/16/21 10:30 02/16/21 12:30 02/16/21 22:56 02/17/21 05:45 Glucose (Fingerstick) 147 mg/dL (70-99) 167 mg/dL (70-99) Sodium Level 134 mmol/L (136-145) 139 mmol/L (136-145) Potassium Level 3.4 mmol/L (3.5-5.1) 3.5 mmol/L (3.5-5.1) Chloride Level 102 mmol/L (98-107) 105 mmol/L (98-107) Carbon Dioxide Level 30 mmol/L (21-32) 29 mmol/L (21-32) Anion Gap 2 (6-14) 5 (6-14) Blood Urea Nitrogen 17 mg/dL (7-20) 23 mg/dL (7-20) Creatinine 1.0 mg/dL (0.6-1.0) 1.0 mg/dL (0.6-1.0) Estimated GFR (Cockcroft-Gault) 60.0 60.0 Glucose Level 136 mg/dL (70-99) 229 mg/dL (70-99) Calcium Level 7.7 mg/dL (8.5-10.1) 8.2 mg/dL (8.5-10.1) C-Reactive Protein, Quantitative 29.0 mg/L (0-3.3) White Blood Count 11.2 x10^3/uL (4.0-11.0) Red Blood Count 4.60 x10^6/uL (3.50-5.40) Hemoglobin 13.5 g/dL (12.0-15.5) Hematocrit 40.5 % (36.0-47.0) Mean Corpuscular Volume 88 fL (79-100) Mean Corpuscular Hemoglobin 29 pg (25-35) Mean Corpuscular Hemoglobin Concent 33 g/dL (31-37) Red Cell Distribution Width 13.5 % (11.5-14.5) Platelet Count 163 x10^3/uL (140-400) Neutrophils (%) (Auto) 89 % (31-73) Lymphocytes (%) (Auto) 5 % (24-48) Monocytes (%) (Auto) 6 % (0-9) Eosinophils (%) (Auto) 0 % (0-3) Basophils (%) (Auto) 0 % (0-3) Neutrophils # (Auto) 9.9 x10^3/uL (1.8-7.7) Lymphocytes # (Auto) 0.5 x10^3/uL (1.0-4.8) Monocytes # (Auto) 0.7 x10^3/uL (0.0-1.1) Eosinophils # (Auto) 0.0 x10^3/uL (0.0-0.7) Basophils # (Auto) 0.0 x10^3/uL (0.0-0.2) Test 8/10/21 05:53 Glucose (Fingerstick) 178 mg/dL (70-99) Review of Systems Review of Systems: Unable to obtain Assessment and Plan Assessmemt and Plan Problems Medical Problems: (1) Ketoacidosis Status: Acute Comment Review of Relevant I have reviewed the following items mazin (where applicable) has been applied. Medications: Current Medications Medications (Trade) Dose Ordered Sig/Pepe Route PRN Reason Start Time Stop Time Status Last Admin Dose Admin Dexmedetomidine HCl 400 mcg/ Sodium Chloride 100 ml @ 0 mls/hr CONT PRN IV PER PROTOCOL 02/16/21 12:00 02/17/21 04:41 Lactobacillus Rhamnosus (Culturelle) 1 cap BID PO 02/16/21 21:00 02/16/21 22:02 Famotidine (Pepcid Vial) 20 mg BID IVP 02/16/21 21:00 02/16/21 22:00 Furosemide (Lasix) 20 mg 1X ONCE IVP 02/16/21 18:30 02/16/21 18:34 DC 02/16/21 18:38 Furosemide (Lasix) 20 mg 1X ONCE IVP 02/16/21 22:15 02/16/21 22:16 DC 02/16/21 22:18 Justifications for Admission Other Justification LEO DELGADO MD Feb 17, 2021 08:32
[2021-02-17] MEDS: LISINOPRIL 20 MG TABLET PO SCH ×2 (09:00→09:35)
[2021-02-17] MEDS: BENZONATATE 100 MG CAPSULE. PO SCH ×2 (09:00→09:34)
[2021-02-17] MEDS: LACTOBACILLUS RHAMNOSUS GG 1 CAPSULE. PO SCH ×2 (09:00→09:34)
[2021-02-17 09:33] LABS: BASE EXCESS ABG 4 mmol/L (-3-3); HCO3 ABG 28 mmol/L (21-28); PCO2 ABG 41 mmHg (35-46); PO2 ABG 70 mmHg (75-108); SAT O2 ABG 93 % (92-99)
[2021-02-17] MEDS: FAMOTIDINE 20 MG/2 ML VIAL IVP SCH ×2 (09:33→20:34)
[2021-02-17] MEDS: DEXAMETHASONE SOD PHOS 4 MG/ML VIAL IVP SCH (09:34)
[2021-02-17] MEDS: INSULIN GLARGINE SYRINGE. SQ SCH ×2 (09:38→20:29)
[2021-02-17] MEDS: ENOXAPARIN 40 MG/0.4 ML SYRINGE. SQ SCH ×2 (09:39→20:32)
[2021-02-17 09:40] LABS: FIO2 ABG 100
[2021-02-17] MEDS ORDERED: SUCCINYLCHOLINE 200 MG/10 ML VIAL. ONE ×2 (09:58→10:00)
[2021-02-17] MEDS ORDERED: POLYVINYL ALCOHOL 1.4% OPHTH SOLUTION 15ML BOTTLE. OU PRN (10:00)
[2021-02-17] MEDS: MIDAZOLAM 100mg/100ml NS BAG 100 ML IV PRN ×3 (10:16→22:36)
--- NOTE | 2021-02-17 11:18 | RAD ---
EXAM: CHEST ONE VIEW. HISTORY: Intubated, respiratory failure. COMPARISON: 02/14/2021. FINDINGS: A frontal view of the chest is obtained. An endotracheal tube has its tip 4 cm above the ca randy. A right arm PICC line has its tip in the right atrium. A nasogastric tube has its proximal side hole at the gastroesophageal junction, recommend advancement. Bilateral diffuse airspace infiltrates are stable. The inspiration is small. There is no pneumothorax or pleural effusion. The heart is not enlarged. Cholecystectomy clips are noted. IMPRESSION: 1. Stable bilateral diffuse infiltrates. Electronically signed by: Rody Nava MD (02/17/2021 11:15 AM) [id number]
[2021-02-17 11:47] LABS: BASE EXCESS ABG 4 mmol/L (-3-3); HCO3 ABG 29 mmol/L (21-28); PCO2 ABG 46 mmHg (35-46); PO2 ABG 166 mmHg (75-108); SAT O2 ABG 99 % (92-99)
[2021-02-17 11:49] LABS: FIO2 ABG 100
[2021-02-17] MEDS: REMDESIVIR 100mg in NORMAL SALINE 250ML X 4 DAYS IV SCH (14:06)
[2021-02-17] MEDS: cefTRIAXone IV Push 1 GM VIAL. IVP SCH (14:09)
[2021-02-17] MEDS: AZITHROMYCIN 250 MG in IV NORMAL SALINE 250ML 250 ML IV SCH (15:36)
--- NOTE | 2021-02-17 15:39 | NUR ---
SS following up with discharge planning. SS reviewed pt chart and discussed with pt RN. Pt is now intubated and is currently on the vent at 100%. COVID19 positive. Pt on Precedex, Versed, and Fentanyl. Pt on IV Remdesivir, IV Azithromycin, IV Rocephin, and IV Decadron. SS will continue to follow for discharge planning.
--- NOTE | 2021-02-17 17:59 | NUR ---
This RN answered calls for several of patient's family members today. They all had the code. When the called, discussed the numerous calls I had to answer. I request that only one family member to call and update everyone else. I explained that answering all these calls takes my time away from the patient. He found out who was giving everyone the code and requested another code that only he will have. This RN changed the patient's pass code.
[2021-02-17] MEDS: ATORVASTATIN CALCIUM 40 MG TABLET. PO SCH (20:34)
[2021-02-17] MEDS: PROPOFOL 100 ML IV PRN (21:16)
[2021-02-18] VITALS (24 sets, daily range): BP systolic 91–140; BP diastolic 47–65
[2021-02-18] MEDS: INSULIN LISPRO 300 UNITS/3 ML VIAL. SQ SCH ×10 (00:54→23:57)
[2021-02-18] MEDS: PROPOFOL 100 ML IV PRN ×4 (01:44→20:43)
[2021-02-18 05:59] LABS: BASO % 0 % (0-3); EOS % 0 % (0-3); HEMATOCRIT 36.6 % (36.0-47.0); HEMOGLOBIN 12.5 g/dL (12.0-15.5); LYMPH # 0.5 x10^3/uL (1.0-4.8); LYMPH % 5 % (24-48); MEAN CORPUSCULAR HEMOGLOBIN 30 pg (25-35); MEAN CORPUSCULAR HGB CONC 34 g/dL (31-37); MEAN CORPUSCULAR VOLUME 88 fL (79-100); MONO # 0.6 x10^3/uL (0.0-1.1); MONO % 6 % (0-9); NEUT % 88 % (31-73); PLATELET COUNT 168 x10^3/uL (140-400); RED BLOOD COUNT 4.16 x10^6/uL (3.50-5.40); RED CELL DISTRIBUTION WIDTH 13.6 % (11.5-14.5); WHITE BLOOD COUNT 10.2 x10^3/uL (4.0-11.0)
[2021-02-18 06:25] LABS: CALCIUM 7.8 mg/dL (8.5-10.1); POTASSIUM 3.5 mmol/L (3.5-5.1)
[2021-02-18] MEDS: CARVEDILOL 6.25 MG TABLET. PO SCH ×2 (08:00→11:53)
[2021-02-18] MEDS: LISINOPRIL 20 MG TABLET PO SCH (08:01)
--- NOTE | 2021-02-18 08:20 | PDOC ---
[facility] [facility] PROGRESS NOTE Date of Service DOS: DATE: 02/18/21 TIME: 08:17 Chief Complaint Chief Complaint COVID-19 positive infection Tractable nausea vomiting DKA Anion gap metabolic acidosis Acute electrolyte derangementhyponatremia, hypochloremia due to volume depletion Hyperglycemia uncontrolled BOB due to vasomotor nephropathy Erythrocytosis Reglan for diabetic gastroparesis Continue Covid measures Patient intubated Pulmonary following IV Compazine or Reglan for nausea SCD for DVT prophylaxis Protonix GI prophylaxis ADA diet Full code Discussed with RN and SW Disposition inpatient management as above Surrogate decision maker is Brian Whitmore History of Present Illness History of Present Illness 46 year old female who presents with nausea/vomiting since 7 AM yesterday morning. Patient states that her recently tested positive for Covid. She states that he "coughed in my face because he thought it was funny." She reports subjective fevers and chills and nausea/vomiting. Denies sore throat, cough, shortness of breath. No chest pain. Does have some upper abdominal discomfort after vomiting, that she attributes to muscular strain. She is not vaccinated for Covid. 02/08/2021 No acute events overnight. Patient seen and examined bedside and resting comfortably. Continues to complain of nausea not able to tolerate any diet at this time. Saturating 98% on room air. Patient's chart, labs, images were reviewed and discussed with RN 02/09/2021: Afebrile, currently breathing on room air. Still with complaints of nausea and vomiting x3 today. States that she has history of similar symptoms that have been mildly improved with IV Dilaudid. Discussed with patient that I will provide IV Dilaudid to help with her nausea, but she will not discharged on this medication. Will obtain 6-minute walk to evaluate oxygen requirements. Upon discharge, I recommend self quarantine for 10 days for resolution of her symptoms. Discussed with patient that she will discharge tomorrow. 02/10/2021: Patient febrile today with T-max 102.2 F. She still admits to nausea, denies any further vomiting. We will continue to provide supportive care and monitor for any recurrent fevers overnight. Patient continues to improve may discharge tomorrow to continue self-isolation. 02/11/2021: Febrile overnight, T-max 102.3 F. She did become hypoxic overnight, currently breathing on 4 L nasal cannula. Also admits to associated vomiting or diarrhea overnight. Discussed with RN, will initiate remdesivir and closely monitor LFTs. We will also treat with IV Decadron, and prophylactic antibiotics. 02/12/2021: Low-grade fever overnight, T-max 99.7. Currently breathing on room air. Will discontinue remdesivir, steroids, and antibiotics; will observe overnight. Still with complaints of vomiting x1 and diarrhea. We will continue to provide supportive care and hope to discharge in the next day or so. 02/13/2021: Afebrile. Still complains of intermittent diarrhea. At the time of my evaluation she was breathing on 6 L nasal cannula; this is somewhat misleading as patient states that she did not feel short of breath but was placed on 6 L by nursing staff overnight. Will have RN reassess her oxygen requirements as I did anticipate discharging today. 02/14/2021: Afebrile, currently breathing on 8 L nasal cannula. There has been some misleading documentation, chart oxygen this patient is requiring. Discussed with RN, will resume remdesivir to complete total of 5 days. Continue to monitor LFTs. Will add steroids, Rocephin, and azithromycin. Continue supportive care. 02/15/2021: Afebrile. Became much more hypoxic overnight, requiring BiPAP. At the time of my evaluation she is still breathing on BiPAP. Consultation was placed to pulmonology. Had discussion with Dr. Myrick about initiating Tocilizumab, but currently there is 1 more person in the ER that would be more deserving. When stocks are replenished, she will be first inline to receive thi s medication. She is also first-line to be transferred down to ICU. Critical care time 30 minutes spent reviewing labs, reviewing imaging, discussion with Dr. Myrick, and discussion with RN. 02/16/2021 No acute events overnight. Patient becoming more hypoxic saturating 94% and requiring BiPAP. Patient will be transferred to the ICU at this time. For worsening clinical status. Discussed with pulmonary. Patient's chart, labs, images were reviewed and discussed with RN 02/17/21 Transferred to ICU yesterday afternoon. Seen and examined at bedside she remains on 100% FiO2 on BiPAP. Respirations do appear somewhat labored. Suspect intubation may be impending. We will closely monitor. Increase lisinopril to 20 today. Plan of care discussed with bedside RN. 02/18/21 Patient required intubation yesterday afternoon. Saw and examined this morning. She is intubated and sedated. Increase insulin today. Covid protocol ordered. Wean as tolerated. Plan of care discussed with bedside nurse. Vitals/I&O Vitals/I&O: Vital Signs Date Time Temp Pulse Resp B/P (MAP) Pulse Ox O2 Delivery O2 Flow Rate FiO2 02/18/21 06:00 53 21 129/48 (75) 99 Ventilator 02/18/21 04:00 99.2 99.2 02/17/21 23:06 15.0 I & O 02/17/21 02/17/21 02/18/21 15:00 23:00 07:00 Intake Total 230 ml 446 ml 714.0 ml Output Total 400 ml 1275 ml 495 ml Balance -170 ml -829 ml 219.0 ml Physical Exam General: No acute distress, Other (Intubated and sedated) Heart: Regular rate Lungs: Other (Intubated, no apparent respiratory distress patient is also sedated) Abdomen: Normal bowel sounds Extremities: No clubbing, No edema Skin: No rashes, No significant lesion Labs Labs: Laboratory Tests Test 02/17/21 11:42 02/17/21 17:00 02/17/21 23:58 02/18/21 05:30 O2 Saturation 99 % (92-99) Arterial Blood pH 7.42 (7.35-7.45) Arterial Blood pCO2 at Patient Temp 46 mmHg (35-46) Arterial Blood pO2 at Patient Temp 166 mmHg (75-108) Arterial Blood HCO3 29 mmol/L (21-28) Arterial Blood Base Excess 4 mmol/L (-3-3) FiO2 100 Glucose (Fingerstick) 343 mg/dL (70-99) 274 mg/dL (70-99) White Blood Count 10.2 x10^3/uL (4.0-11.0) Red Blood Count 4.16 x10^6/uL (3.50-5.40) Hemoglobin 12.5 g/dL (12.0-15.5) Hematocrit 36.6 % (36.0-47.0) Mean Corpuscular Volume 88 fL (79-100) Mean Corpuscular Hemoglobin 30 pg (25-35) Mean Corpuscular Hemoglobin Concent 34 g/dL (31-37) Red Cell Distribution Width 13.6 % (11.5-14.5) Platelet Count 168 x10^3/uL (140-400) Neutrophils (%) (Auto) 88 % (31-73) Lymphocytes (%) (Auto) 5 % (24-48) Monocytes (%) (Auto) 6 % (0-9) Eosinophils (%) (Auto) 0 % (0-3) Basophils (%) (Auto) 0 % (0-3) Neutrophils # (Auto) 9.0 x10^3/uL (1.8-7.7) Lymphocytes # (Auto) 0.5 x10^3/uL (1.0-4.8) Monocytes # (Auto) 0.6 x10^3/uL (0.0-1.1) Eosinophils # (Auto) 0.0 x10^3/uL (0.0-0.7) Basophils # (Auto) 0.0 x10^3/uL (0.0-0.2) Sodium Level 143 mmol/L (136-145) Potassium Level 3.5 mmol/L (3.5-5.1) Chloride Level 107 mmol/L (98-107) Carbon Dioxide Level 31 mmol/L (21-32) Anion Gap 5 (6-14) Blood Urea Nitrogen 29 mg/dL (7-20) Creatinine 1.0 mg/dL (0.6-1.0) Estimated GFR (Cockcroft-Gault) 60.0 Glucose Level 249 mg/dL (70-99) Calcium Level 7.8 mg/dL (8.5-10.1) Test 02/18/21 05:37 Glucose (Fingerstick) 227 mg/dL (70-99) Review of Systems Review of Systems: Cannot obtain Assessment and Plan Assessmemt and Plan Problems Medical Problems: (1) Ketoacidosis Status: Acute Comment Review of Relevant I have reviewed the following items mazin (where applicable) has been applied. Medications: Current Medications Medications (Trade) Dose Ordered Sig/Pepe Route PRN Reason Start Time Stop Time Status Last Admin Dose Admin Fentanyl Citrate 30 ml @ 0 mls/hr CONT PRN IV SEE PROTOCOL 02/17/21 10:00 02/17/21 22:36 Propofol 100 ml @ 0 mls/hr CONT PRN IV PER PROTOCOL 02/17/21 10:00 02/18/21 01:44 Midazolam HCl 100 ml @ 0 mls/hr CONT PRN IV SEE PROTOCOL 02/17/21 10:00 02/17/21 22:36 Justifications for Admission Other Justification LEO DELGADO MD Feb 18, 2021 08:20
[2021-02-18] MEDS: FAMOTIDINE 20 MG/2 ML VIAL IVP SCH ×2 (08:56→20:42)
[2021-02-18] MEDS: ENOXAPARIN 40 MG/0.4 ML SYRINGE. SQ SCH ×2 (08:56→20:43)
[2021-02-18] MEDS: DEXAMETHASONE SOD PHOS 4 MG/ML VIAL IVP SCH (08:56)
[2021-02-18] MEDS: INSULIN GLARGINE SYRINGE. SQ SCH ×2 (09:12→20:54)
[2021-02-18 09:35] LABS: BASE EXCESS ABG 4 mmol/L (-3-3); HCO3 ABG 28 mmol/L (21-28); PCO2 ABG 40 mmHg (35-46); PO2 ABG 85 mmHg (75-108); SAT O2 ABG 96 % (92-99)
[2021-02-18 09:38] LABS: FIO2 ABG 100
--- NOTE | 2021-02-18 10:39 | PDOC ---
PULMONARY PROGRESS NOTES DATE: 02/18/21 TIME: 10:36 Subjective Patient with remains on ventilatory support, intubated 02/17/2021 low Grade fever overnight No overnight concerns from nursing Vitals Vital Signs Date Time Temp Pulse Resp B/P (MAP) Pulse Ox O2 Delivery O2 Flow Rate FiO2 02/18/21 09:25 24 99 Ventilator 02/18/21 09:00 52 113/49 (70) 02/18/21 08:55 15.0 02/18/21 08:00 98.9 98.9 Comments Visual exam done due to COVID-19. intubated Patient and mild distress., Anxious. No paradoxical breathing. No skin rash or leg edema. General: Mild Distress Lungs: Other (Intubated, no apparent respiratory distress patient is also sedated) Labs Laboratory Tests Test 02/16/21 12:30 02/16/21 22:56 02/17/21 05:45 02/17/21 05:53 Sodium Level 134 mmol/L (136-145) 139 mmol/L (136-145) Potassium Level 3.4 mmol/L (3.5-5.1) 3.5 mmol/L (3.5-5.1) Chloride Level 102 mmol/L (98-107) 105 mmol/L (98-107) Carbon Dioxide Level 30 mmol/L (21-32) 29 mmol/L (21-32) Anion Gap 2 (6-14) 5 (6-14) Blood Urea Nitrogen 17 mg/dL (7-20) 23 mg/dL (7-20) Creatinine 1.0 mg/dL (0.6-1.0) 1.0 mg/dL (0.6-1.0) Estimated GFR (Cockcroft-Gault) 60.0 60.0 Glucose Level 136 mg/dL (70-99) 229 mg/dL (70-99) Calcium Level 7.7 mg/dL (8.5-10.1) 8.2 mg/dL (8.5-10.1) C-Reactive Protein, Quantitative 29.0 mg/L (0-3.3) Glucose (Fingerstick) 167 mg/dL (70-99) 178 mg/dL (70-99) White Blood Count 11.2 x10^3/uL (4.0-11.0) Red Blood Count 4.60 x10^6/uL (3.50-5.40) Hemoglobin 13.5 g/dL (12.0-15.5) Hematocrit 40.5 % (36.0-47.0) Mean Corpuscular Volume 88 fL (79-100) Mean Corpuscular Hemoglobin 29 pg (25-35) Mean Corpuscular Hemoglobin Concent 33 g/dL (31-37) Red Cell Distribution Width 13.5 % (11.5-14.5) Platelet Count 163 x10^3/uL (140-400) Neutrophils (%) (Auto) 89 % (31-73) Lymphocytes (%) (Auto) 5 % (24-48) Monocytes (%) (Auto) 6 % (0-9) Eosinophils (%) (Auto) 0 % (0-3) Basophils (%) (Auto) 0 % (0-3) Neutrophils # (Auto) 9.9 x10^3/uL (1.8-7.7) Lymphocytes # (Auto) 0.5 x10^3/uL (1.0-4.8) Monocytes # (Auto) 0.7 x10^3/uL (0.0-1.1) Eosinophils # (Auto) 0.0 x10^3/uL (0.0-0.7) Basophils # (Auto) 0.0 x10^3/uL (0.0-0.2) Test 02/17/21 08:00 02/17/21 11:42 02/17/21 17:00 02/17/21 23:58 O2 Saturation 93 % (92-99) 99 % (92-99) Arterial Blood pH 7.45 (7.35-7.45) 7.42 (7.35-7.45) Arterial Blood pCO2 at Patient Temp 41 mmHg (35-46) 46 mmHg (35-46) Arterial Blood pO2 at Patient Temp 70 mmHg (75-108) 166 mmHg (75-108) Arterial Blood HCO3 28 mmol/L (21-28) 29 mmol/L (21-28) Arterial Blood Base Excess 4 mmol/L (-3-3) 4 mmol/L (-3-3) FiO2 100 100 Glucose (Fingerstick) 343 mg/dL (70-99) 274 mg/dL (70-99) Test 02/18/21 05:30 02/18/21 05:37 02/18/21 08:00 White Blood Count 10.2 x10^3/uL (4.0-11.0) Red Blood Count 4.16 x10^6/uL (3.50-5.40) Hemoglobin 12.5 g/dL (12.0-15.5) Hematocrit 36.6 % (36.0-47.0) Mean Corpuscular Volume 88 fL (79-100) Mean Corpuscular Hemoglobin 30 pg (25-35) Mean Corpuscular Hemoglobin Concent 34 g/dL (31-37) Red Cell Distribution Width 13.6 % (11.5-14.5) Platelet Count 168 x10^3/uL (140-400) Neutrophils (%) (Auto) 88 % (31-73) Lymphocytes (%) (Auto) 5 % (24-48) Monocytes (%) (Auto) 6 % (0-9) Eosinophils (%) (Auto) 0 % (0-3) Basophils (%) (Auto) 0 % (0-3) Neutrophils # (Auto) 9.0 x10^3/uL (1.8-7.7) Lymphocytes # (Auto) 0.5 x10^3/uL (1.0-4.8) Monocytes # (Auto) 0.6 x10^3/uL (0.0-1.1) Eosinophils # (Auto) 0.0 x10^3/uL (0.0-0.7) Basophils # (Auto) 0.0 x10^3/uL (0.0-0.2) Sodium Level 143 mmol/L (136-145) Potassium Level 3.5 mmol/L (3.5-5.1) Chloride Level 107 mmol/L (98-107) Carbon Dioxide Level 31 mmol/L (21-32) Anion Gap 5 (6-14) Blood Urea Nitrogen 29 mg/dL (7-20) Creatinine 1.0 mg/dL (0.6-1.0) Estimated GFR (Cockcroft-Gault) 60.0 Glucose Level 249 mg/dL (70-99) Calcium Level 7.8 mg/dL (8.5-10.1) Glucose (Fingerstick) 227 mg/dL (70-99) O2 Saturation 96 % (92-99) Arterial Blood pH 7.47 (7.35-7.45) Arterial Blood pCO2 at Patient Temp 40 mmHg (35-46) Arterial Blood pO2 at Patient Temp 85 mmHg (75-108) Arterial Blood HCO3 28 mmol/L (21-28) Arterial Blood Base Excess 4 mmol/L (-3-3) FiO2 100 Laboratory Tests Test 02/17/21 11:42 02/17/21 17:00 02/17/21 23:58 02/18/21 05:30 O2 Saturation 99 % (92-99) Arterial Blood pH 7.42 (7.35-7.45) Arterial Blood pCO2 at Patient Temp 46 mmHg (35-46) Arterial Blood pO2 at Patient Temp 166 mmHg (75-108) Arterial Blood HCO3 29 mmol/L (21-28) Arterial Blood Base Excess 4 mmol/L (-3-3) FiO2 100 Glucose (Fingerstick) 343 mg/dL (70-99) 274 mg/dL (70-99) White Blood Count 10.2 x10^3/uL (4.0-11.0) Red Blood Count 4.16 x10^6/uL (3.50-5.40) Hemoglobin 12.5 g/dL (12.0-15.5) Hematocrit 36.6 % (36.0-47.0) Mean Corpuscular Volume 88 fL (79-100) Mean Corpuscular Hemoglobin 30 pg (25-35) Mean Corpuscular Hemoglobin Concent 34 g/dL (31-37) Red Cell Distribution Width 13.6 % (11.5-14.5) Platelet Count 168 x10^3/uL (140-400) Neutrophils (%) (Auto) 88 % (31-73) Lymphocytes (%) (Auto) 5 % (24-48) Monocytes (%) (Auto) 6 % (0-9) Eosinophils (%) (Auto) 0 % (0-3) Basophils (%) (Auto) 0 % (0-3) Neutrophils # (Auto) 9.0 x10^3/uL (1.8-7.7) Lymphocytes # (Auto) 0.5 x10^3/uL (1.0-4.8) Monocytes # (Auto) 0.6 x10^3/uL (0.0-1.1) Eosinophils # (Auto) 0.0 x10^3/uL (0.0-0.7) Basophils # (Auto) 0.0 x10^3/uL (0.0-0.2) Sodium Level 143 mmol/L (136-145) Potassium Level 3.5 mmol/L (3.5-5.1) Chloride Level 107 mmol/L (98-107) Carbon Dioxide Level 31 mmol/L (21-32) Anion Gap 5 (6-14) Blood Urea Nitrogen 29 mg/dL (7-20) Creatinine 1.0 mg/dL (0.6-1.0) Estimated GFR (Cockcroft-Gault) 60.0 Glucose Level 249 mg/dL (70-99) Calcium Level 7.8 mg/dL (8.5-10.1) Test 02/18/21 05:37 02/18/21 08:00 Glucose (Fingerstick) 227 mg/dL (70-99) O2 Saturation 96 % (92-99) Arterial Blood pH 7.47 (7.35-7.45) Arterial Blood pCO2 at Patient Temp 40 mmHg (35-46) Arterial Blood pO2 at Patient Temp 85 mmHg (75-108) Arterial Blood HCO3 28 mmol/L (21-28) Arterial Blood Base Excess 4 mmol/L (-3-3) FiO2 100 Medications Active Scripts Medications Dose Route/Sig Max Daily Dose Days Date Category Novolog Flexpen (Insulin Aspart) 100 Unit/1 Ml Insuln.pen 3-7 SQ TIDACHC 02/07/21 Reported Lisinopril 5 Mg Tablet 1 Tab PO DAILY 02/07/21 Reported Lantus Solostar (Insulin Glargine,Hum.rec.anlog) 100 Unit/1 Ml Insuln.pen 5 Unit SQ QHS 04/09/15 Reported Atorvastatin Calcium 40 Mg Tablet 40 Mg PO HS 04/09/15 Reported Impression . IMPRESSION: 1. Acute hypoxic respiratory failure secondary to COVID-19 viral pneumonia/acute lung injury and early acute respiratory distress syndrome. S/P intubation 02/17/21 2. Nonsmoker. 3. Abnormal chest x-ray consistent with COVID-19 viral pneumonia. 4. Diabetic ketoacidosis as initial presentation, currently better.--resolved 5. Underlying obesity contributing to hypoxia as well. Plan . Updated 02/18/2021 Continue current vent support 18/450/100%/PEEP of 8 Follow chest x-ray/ABG as needed--reduce FiO2 to 90% Continue IV steroids will need full 10 days course started 02/15/2021 Continue empiric antibiotics with Rocephin and azithromycin Continue remdesivir for full course Diabetes per PCP Continue tube feeding for nutritional support DVT/GI prophylaxis: Lovenox Discussed with RN and RT Critical Care time 30 minutes Updated 02/17/2021 Continue current supplemental oxygen with BiPAP at 100%, closely monitoring the need for intubation IPAP settings reviewed, make changes as necessary Follow chest x-ray/ABG as needed Continue IV steroids will need full 10 days course started 02/15/2021 Continue empiric antibiotics with Rocephin and azithromycin Continue remdesivir for full course Diabetes per PCP HTN per PCP Consulted dietitian for nutritional support DVT/GI prophylaxis: Lovenox Discussed with RN and RT Addendum;. Patient reevaluated again. She is unable to tolerate BiPAP at 100% FiO2. We spoke to her about the need for intubation and she agreed to it. She is now intubated on assist control mode. She will be sedated. Will obtain chest x-ray post intubation and follow ABGs and make necessary adjustments. I have called patient's and informed about her condition Critical care time 30 minutes 1. Continue present BiPAP at 75% of FIO2. 2. The patient is at risk for mechanical ventilation. We will be watching her closely. As soon as the ICU bed opens up we will transfer her to the ICU. 3. Follow oxygen saturations, keep 92% and above. 4. Continue Decadron. 5. Continue remdesivir. 6. Empiric antibiotic. 7. Lovenox for DVT prophylaxis. 8. Discussed with RN. Discussed with the patient her clinical condition.d/w Dr Jackson 9. We will follow along with you. EMILY POSADA MD Feb 18, 2021 10:38
[2021-02-18] MEDS: cefTRIAXone IV Push 1 GM VIAL. IVP SCH (11:51)
[2021-02-18] MEDS: AZITHROMYCIN 250 MG in IV NORMAL SALINE 250ML 250 ML IV SCH (11:51)
[2021-02-18] MEDS: REMDESIVIR 100mg in NORMAL SALINE 250ML X 4 DAYS IV SCH (11:52)
[2021-02-18] MEDS: MIDAZOLAM 100mg/100ml NS BAG 100 ML IV PRN ×2 (14:15→22:24)
--- NOTE | 2021-02-18 15:55 | NUR ---
SS following up with discharge planning. SS reviewed pt chart and discussed with pt RN. Pt is currently on the vent at 90%. COVID19 positive. Pt on IV Remdesivir, IV Rocephin, IV Decadron, and IV Azithromycin. Pt on Versed, Fentanyl, Propofol. Self pay. Not stable. SS will continue to follow for discharge planning.
[2021-02-18] MEDS: ATORVASTATIN CALCIUM 40 MG TABLET. PO SCH (20:43)
[2021-02-19] VITALS (29 sets, daily range): BP systolic 107–164; BP diastolic 50–72
[2021-02-19] MEDS: PROPOFOL 100 ML IV PRN ×4 (01:59→17:57)
[2021-02-19] MEDS: INSULIN LISPRO 300 UNITS/3 ML VIAL. SQ SCH ×5 (06:23→17:58)
[2021-02-19] MEDS: CARVEDILOL 6.25 MG TABLET. PO SCH ×2 (07:55→17:56)
[2021-02-19] MEDS: LISINOPRIL 20 MG TABLET PO SCH (07:55)
[2021-02-19] MEDS: FAMOTIDINE 20 MG/2 ML VIAL IVP SCH ×2 (07:55→20:41)
[2021-02-19] MEDS: DEXAMETHASONE SOD PHOS 4 MG/ML VIAL IVP SCH (07:56)
[2021-02-19] MEDS: ENOXAPARIN 40 MG/0.4 ML SYRINGE. SQ SCH ×2 (07:57→20:42)
[2021-02-19 08:15] LABS: BASE EXCESS ABG 6 mmol/L (-3-3); HCO3 ABG 31 mmol/L (21-28); PCO2 ABG 44 mmHg (35-46); PO2 ABG 73 mmHg (75-108); SAT O2 ABG 94 % (92-99)
[2021-02-19] MEDS: INSULIN GLARGINE SYRINGE. SQ SCH ×2 (08:38→20:44)
[2021-02-19 08:43] LABS: FIO2 ABG 90/VENT
[2021-02-19] MEDS: MIDAZOLAM 100mg/100ml NS BAG 100 ML IV PRN ×2 (08:53→22:40)
--- NOTE | 2021-02-19 10:23 | PDOC ---
PULMONARY PROGRESS NOTES DATE: 02/19/21 TIME: 10:21 Subjective Patient with remains on ventilatory support, intubated 02/17/2021 Sedated with propofol, fentanyl and Versed No overnight concerns from nursing Vitals Vital Signs Date Time Temp Pulse Resp B/P (MAP) Pulse Ox O2 Delivery O2 Flow Rate FiO2 02/19/21 10:00 62 22 107/50 (69) 100 Ventilator 02/19/21 08:00 99.2 99.2 02/18/21 21:11 15.0 Comments Visual exam done due to COVID-19. intubated Patient and mild distress., Anxious. No paradoxical breathing. No skin rash or leg edema. General: Mild Distress Lungs: Other (Intubated, no apparent respiratory distress patient is also sedated) Labs Laboratory Tests Test 02/17/21 11:42 02/17/21 17:00 02/17/21 23:58 02/18/21 05:30 O2 Saturation 99 % (92-99) Arterial Blood pH 7.42 (7.35-7.45) Arterial Blood pCO2 at Patient Temp 46 mmHg (35-46) Arterial Blood pO2 at Patient Temp 166 mmHg (75-108) Arterial Blood HCO3 29 mmol/L (21-28) Arterial Blood Base Excess 4 mmol/L (-3-3) FiO2 100 Glucose (Fingerstick) 343 mg/dL (70-99) 274 mg/dL (70-99) White Blood Count 10.2 x10^3/uL (4.0-11.0) Red Blood Count 4.16 x10^6/uL (3.50-5.40) Hemoglobin 12.5 g/dL (12.0-15.5) Hematocrit 36.6 % (36.0-47.0) Mean Corpuscular Volume 88 fL (79-100) Mean Corpuscular Hemoglobin 30 pg (25-35) Mean Corpuscular Hemoglobin Concent 34 g/dL (31-37) Red Cell Distribution Width 13.6 % (11.5-14.5) Platelet Count 168 x10^3/uL (140-400) Neutrophils (%) (Auto) 88 % (31-73) Lymphocytes (%) (Auto) 5 % (24-48) Monocytes (%) (Auto) 6 % (0-9) Eosinophils (%) (Auto) 0 % (0-3) Basophils (%) (Auto) 0 % (0-3) Neutrophils # (Auto) 9.0 x10^3/uL (1.8-7.7) Lymphocytes # (Auto) 0.5 x10^3/uL (1.0-4.8) Monocytes # (Auto) 0.6 x10^3/uL (0.0-1.1) Eosinophils # (Auto) 0.0 x10^3/uL (0.0-0.7) Basophils # (Auto) 0.0 x10^3/uL (0.0-0.2) Sodium Level 143 mmol/L (136-145) Potassium Level 3.5 mmol/L (3.5-5.1) Chloride Level 107 mmol/L (98-107) Carbon Dioxide Level 31 mmol/L (21-32) Anion Gap 5 (6-14) Blood Urea Nitrogen 29 mg/dL (7-20) Creatinine 1.0 mg/dL (0.6-1.0) Estimated GFR (Cockcroft-Gault) 60.0 Glucose Level 249 mg/dL (70-99) Calcium Level 7.8 mg/dL (8.5-10.1) Test 02/18/21 05:37 02/18/21 08:00 02/18/21 12:03 02/18/21 17:05 Glucose (Fingerstick) 227 mg/dL (70-99) 126 mg/dL (70-99) 333 mg/dL (70-99) O2 Saturation 96 % (92-99) Arterial Blood pH 7.47 (7.35-7.45) Arterial Blood pCO2 at Patient Temp 40 mmHg (35-46) Arterial Blood pO2 at Patient Temp 85 mmHg (75-108) Arterial Blood HCO3 28 mmol/L (21-28) Arterial Blood Base Excess 4 mmol/L (-3-3) FiO2 100 Test 02/18/21 23:53 02/19/21 06:22 02/19/21 08:00 Glucose (Fingerstick) 353 mg/dL (70-99) 266 mg/dL (70-99) O2 Saturation 94 % (92-99) Arterial Blood pH 7.46 (7.35-7.45) Arterial Blood pCO2 at Patient Temp 44 mmHg (35-46) Arterial Blood pO2 at Patient Temp 73 mmHg (75-108) Arterial Blood HCO3 31 mmol/L (21-28) Arterial Blood Base Excess 6 mmol/L (-3-3) FiO2 90/vent Laboratory Tests Test 02/18/21 12:03 02/18/21 17:05 02/18/21 23:53 02/19/21 06:22 Glucose (Fingerstick) 126 mg/dL (70-99) 333 mg/dL (70-99) 353 mg/dL (70-99) 266 mg/dL (70-99) Test 02/19/21 08:00 O2 Saturation 94 % (92-99) Arterial Blood pH 7.46 (7.35-7.45) Arterial Blood pCO2 at Patient Temp 44 mmHg (35-46) Arterial Blood pO2 at Patient Temp 73 mmHg (75-108) Arterial Blood HCO3 31 mmol/L (21-28) Arterial Blood Base Excess 6 mmol/L (-3-3) FiO2 90/vent Medications Active Scripts Medications Dose Route/Sig Max Daily Dose Days Date Category Novolog Flexpen (Insulin Aspart) 100 Unit/1 Ml Insuln.pen 3-7 SQ TIDACHC 02/07/21 Reported Lisinopril 5 Mg Tablet 1 Tab PO DAILY 02/07/21 Reported Lantus Solostar (Insulin Glargine,Hum.rec.anlog) 100 Unit/1 Ml Insuln.pen 5 Unit SQ QHS 04/09/15 Reported Atorvastatin Calcium 40 Mg Tablet 40 Mg PO HS 04/09/15 Reported Impression . IMPRESSION: 1. Acute hypoxic respiratory failure secondary to COVID-19 viral pneumonia/acute lung injury and early acute respiratory distress syndrome. S/P intubation 02/17/21 2. Nonsmoker. 3. Abnormal chest x-ray consistent with COVID-19 viral pneumonia. 4. Diabetic ketoacidosis as initial presentation, currently better.--resolved 5. Underlying obesity contributing to hypoxia as well. Plan . Updated 02/19/2021 Continue current vent support 18/450/90%/PEEP of 8 Follow chest x-ray/ABG as needed--reduce FiO2 to 85 Continue IV steroids will need full 10 days course started 02/15/2021 Continue empiric antibiotics Continue remdesivir for full course Diabetes per PCP Continue tube feeding for nutritional support DVT/GI prophylaxis: Lovenox Discussed with RN and RT Critical Care time 30 minutes Updated 02/18/2021 Continue current vent support 18/450/100%/PEEP of 8 Follow chest x-ray/ABG as needed--reduce FiO2 to 90% Continue IV steroids will need full 10 days course started 02/15/2021 Continue empiric antibiotics with Rocephin and azithromycin Continue remdesivir for full course Diabetes per PCP Continue tube feeding for nutritional support DVT/GI prophylaxis: Lovenox Discussed with RN and RT Critical Care time 30 minutes Updated 02/17/2021 Continue current supplemental oxygen with BiPAP at 100%, closely monitoring the need for intubation IPAP settings reviewed, make changes as necessary Follow chest x-ray/ABG as needed Continue IV steroids will need full 10 days course started 02/15/2021 Continue empiric antibiotics with Rocephin and azithromycin Continue remdesivir for full course Diabetes per PCP HTN per PCP Consulted dietitian for nutritional support DVT/GI prophylaxis: Lovenox Discussed with RN and RT Addendum;. Patient reevaluated again. She is unable to tolerate BiPAP at 100% FiO2. We spoke to her about the need for intubation and she agreed to it. She is now intubated on assist control mode. She will be sedated. Will obtain chest x-ray post intubation and follow ABGs and make necessary adjustments. I have called patient's and informed about her condition Critical care time 30 minutes LY MITCHELL APRN Feb 19, 2021 10:23
[2021-02-19] MEDS ORDERED: INSULIN LISPRO 300 UNITS/3 ML VIAL. SQ SCH (12:00)
--- NOTE | 2021-02-19 12:30 | PDOC ---
[facility] [facility] PROGRESS NOTE Date of Service DOS: DATE: 02/19/21 TIME: 12:29 Chief Complaint Chief Complaint COVID-19 positive infection Tractable nausea vomiting DKA Anion gap metabolic acidosis Acute electrolyte derangementhyponatremia, hypochloremia due to volume depletion Hyperglycemia uncontrolled BOB due to vasomotor nephropathy Erythrocytosis Reglan for diabetic gastroparesis Continue Covid measures Patient intubated Pulmonary following SCD for DVT prophylaxis Protonix GI prophylaxis ADA diet Full code Discussed with RN and SW Disposition inpatient management as above Surrogate decision maker is Brian Whitmore History of Present Illness History of Present Illness 46 year old female who presents with nausea/vomiting since 7 AM yesterday morning. Patient states that her recently tested positive for Covid. She states that he "coughed in my face because he thought it was funny." She reports subjective fevers and chills and nausea/vomiting. Denies sore throat, cough, shortness of breath. No chest pain. Does have some upper abdominal discomfort after vomiting, that she attributes to muscular strain. She is not vaccinated for Covid. 02/08/2021 No acute events overnight. Patient seen and examined bedside and resting comfortably. Continues to complain of nausea not able to tolerate any diet at this time. Saturating 98% on room air. Patient's chart, labs, images were reviewed and discussed with RN 02/09/2021: Afebrile, currently breathing on room air. Still with complaints of nausea and vomiting x3 today. States that she has history of similar symptoms that have been mildly improved with IV Dilaudid. Discussed with patient that I will provide IV Dilaudid to help with her nausea, but she will not discharged on this medication. Will obtain 6-minute walk to evaluate oxygen requirements. Upon discharge, I recommend self quarantine for 10 days for resolution of her symptoms. Discussed with patient that she will discharge tomorrow. 02/10/2021: Patient febrile today with T-max 102.2 F. She still admits to nausea, denies any further vomiting. We will continue to provide supportive care and monitor for any recurrent fevers overnight. Patient continues to improve may discharge tomorrow to continue self-isolation. 02/11/2021: Febrile overnight, T-max 102.3 F. She did become hypoxic overnight, currently breathing on 4 L nasal cannula. Also admits to associated vomiting or diarrhea overnight. Discussed with RN, will initiate remdesivir and closely monitor LFTs. We will also treat with IV Decadron, and prophylactic anti biotics. 02/12/2021: Low-grade fever overnight, T-max 99.7. Currently breathing on room air. Will discontinue remdesivir, steroids, and antibiotics; will observe overnight. Still with complaints of vomiting x1 and diarrhea. We will continue to provide supportive care and hope to discharge in the next day or so. 02/13/2021: Afebrile. Still complains of intermittent diarrhea. At the time of my evaluation she was breathing on 6 L nasal cannula; this is somewhat misleading as patient states that she did not feel short of breath but was placed on 6 L by nursing staff overnight. Will have RN reassess her oxygen requirements as I did anticipate discharging today. 02/14/2021: Afebrile, currently breathing on 8 L nasal cannula. There has been some misleading documentation, chart oxygen this patient is requiring. Discussed with RN, will resume remdesivir to complete total of 5 days. Continue to monitor LFTs. Will add steroids, Rocephin, and azithromycin. Continue supportive care. 02/15/2021: Afebrile. Became much more hypoxic overnight, requiring BiPAP. At the time of my evaluation she is still breathing on BiPAP. Consultation was placed to pulmonology. Had discussion with Dr. Myrick about initiating Tocilizumab, but currently there is 1 more person in the ER that would be more deserving. When stocks are replenished, she will be first inline to receive this medication. She is also first-line to be transferred down to ICU. Critical care time 30 minutes spent reviewing labs, reviewing imaging, discussion with Dr. Myrick, and discussion with RN. 02/16/2021 No acute events overnight. Patient becoming more hypoxic saturating 94% and requiring BiPAP. Patient will be transferred to the ICU at this time. For worsening clinical status. Discussed with pulmonary. Patient's chart, labs, images were reviewed and discussed with RN 02/17/21 Transferred to ICU yesterday afternoon. Seen and examined at bedside she remains on 100% FiO2 on BiPAP. Respirations do appear somewhat labored. Suspect intubation may be impending. We will closely monitor. Increase lisinopril to 20 today. Plan of care discussed with bedside RN. 02/18/21 Patient required intubation yesterday afternoon. Saw and examined this morning. She is intubated and sedated. Increase insulin today. Covid protocol ordered. Wean as tolerated. Plan of care discussed with bedside nurse. 02/19/21 Bedside. She remains intubated and sedated. Continue Covid protocol. Wean oxygen sedation as tolerated. Pulmonary following. Plan of care discussed with bedside RN. Vitals/I&O Vitals/I&O: Vital Signs Date Time Temp Pulse Resp B/P (MAP) Pulse Ox O2 Delivery O2 Flow Rate FiO2 02/19/21 12:00 Mechanical Ventilator 02/19/21 12:00 99.5 53 22 153/70 (97) 100 99.5 02/18/21 21:11 15.0 I & O 02/18/21 02/18/21 02/19/21 15:00 23:00 07:00 Intake Total 798 ml 1239.8 ml Output Total 525 ml 475 ml 520 ml Balance -525 ml 323 ml 719.8 ml Physical Exam General: No acute distress, Other (Intubated and sedated) Heart: Regular rate Lungs: Other (Intubated, no apparent respiratory distress patient is also sedated) Abdomen: Normal bowel sounds Extremities: No clubbing, No edema Skin: No rashes, No significant lesion Labs Labs: Laboratory Tests Test 02/18/21 17:05 02/18/21 23:53 02/19/21 06:22 02/19/21 08:00 Glucose (Fingerstick) 333 mg/dL (70-99) 353 mg/dL (70-99) 266 mg/dL (70-99) O2 Saturation 94 % (92-99) Arterial Blood pH 7.46 (7.35-7.45) Arterial Blood pCO2 at Patient Temp 44 mmHg (35-46) Arterial Blood pO2 at Patient Temp 73 mmHg (75-108) Arterial Blood HCO3 31 mmol/L (21-28) Arterial Blood Base Excess 6 mmol/L (-3-3) FiO2 90/vent Test 02/19/21 11:31 Glucose (Fingerstick) 313 mg/dL (70-99) Review of Systems Review of Systems: Cannot obtain Assessment and Plan Assessmemt and Plan Problems Medical Problems: (1) Ketoacidosis Status: Acute Comment Review of Relevant I have reviewed the following items mazin (where applicable) has been applied. Medications: Current Medications Medications (Trade) Dose Ordered Sig/Pepe Route PRN Reason Start Time Stop Time Status Last Admin Dose Admin Insulin Glargine (Lantus Syringe) 25 unit BID SQ 02/19/21 09:00 02/19/21 08:38 Insulin Human Lispro (HumaLOG) 8 units Q6HRS SQ 02/19/21 12:00 02/19/21 11:33 Justifications for Admission Other Justification LEO DELGADO MD Feb 19, 2021 12:30
[2021-02-19] MEDS: cefTRIAXone IV Push 1 GM VIAL. IVP SCH (12:41)
--- NOTE | 2021-02-19 16:01 | NUR ---
SS following up with discharge planning. SS reviewed pt chart and discussed with pt RN. Pt is currently on the vent at 90%. COVID19 positive. Pt on IV Rocephin and IV Decadron. Pt on Versed, Fentanyl, and Propofol. Self pay. Not stable. SS will continue to follow for discharge planning.
[2021-02-19] MEDS: ATORVASTATIN CALCIUM 40 MG TABLET. PO SCH (20:42)
[2021-02-19 21:02] LABS: CALCIUM 7.9 mg/dL (8.5-10.1); CREATININE 1.1 mg/dL (0.6-1.0); GFR 53.7; MAGNESIUM 2.7 mg/dL (1.8-2.4); PHOSPHORUS 3.2 mg/dL (2.6-4.7); POTASSIUM 4.2 mmol/L (3.5-5.1)
[2021-02-20] VITALS (30 sets, daily range): BP systolic 96–164; BP diastolic 49–79
[2021-02-20] MEDS: PROPOFOL 100 ML IV PRN ×5 (00:07→18:44)
[2021-02-20] MEDS: INSULIN LISPRO 300 UNITS/3 ML VIAL. SQ SCH ×8 (00:38→18:28)
--- NOTE | 2021-02-20 05:39 | RAD ---
Study: XR CHEST 1V Indication: Respiratory failure. Comparison: 02/17/2021 Findings: Right-sided PICC extending either to the superior cavoatrial junction or within the right atrium. End otracheal tube tip projects 2 cm above the maria elena. Enteric tube tip within the stomach. The sidehole projects just distal to the expected location of the gastroesophageal junction. Similar extent of confluent bilateral airspace infiltrates. No evidence for an increasing effusion or pneumothorax. Impression: 1. Support device positioning as above. 2. Persistent and not significantly changed diffuse airspace infiltrates. Electronically signed by: CHRISTEN GARY MD (02/20/2021 5:36 AM) [facility]
[2021-02-20 08:19] LABS: BASE EXCESS ABG 6 mmol/L (-3-3); HCO3 ABG 32 mmol/L (21-28); PCO2 ABG 54 mmHg (35-46); PO2 ABG 70 mmHg (75-108); SAT O2 ABG 93 % (92-99)
[2021-02-20 08:20] LABS: FIO2 ABG 85
--- NOTE | 2021-02-20 10:00 | PDOC ---
PULMONARY PROGRESS NOTES DATE: 02/20/21 TIME: 09:57 Subjective Patient with remains on ventilatory support, intubated 02/17/2021 Sedated with propofol, fentanyl and Versed No overnight concerns from nursing Vitals Vital Signs Date Time Temp Pulse Resp B/P (MAP) Pulse Ox O2 Delivery O2 Flow Rate FiO2 02/20/21 07:55 100 Ventilator 02/20/21 07:26 18 02/20/21 07:00 56 132/67 (88) 02/20/21 04:00 99.4 99.4 Comments Visual exam done due to COVID-19. intubated No paradoxical breathing. No skin rash or leg edema. Lungs: Other Labs Laboratory Tests Test 02/18/21 12:03 02/18/21 17:05 02/18/21 23:53 02/19/21 06:22 Glucose (Fingerstick) 126 mg/dL (70-99) 333 mg/dL (70-99) 353 mg/dL (70-99) 266 mg/dL (70-99) Test 02/19/21 08:00 02/19/21 11:31 02/19/21 17:56 02/19/21 20:15 O2 Saturation 94 % (92-99) Arterial Blood pH 7.46 (7.35-7.45) Arterial Blood pCO2 at Patient Temp 44 mmHg (35-46) Arterial Blood pO2 at Patient Temp 73 mmHg (75-108) Arterial Blood HCO3 31 mmol/L (21-28) Arterial Blood Base Excess 6 mmol/L (-3-3) FiO2 90/vent Glucose (Fingerstick) 313 mg/dL (70-99) 236 mg/dL (70-99) Sodium Level 146 mmol/L (136-145) Potassium Level 4.2 mmol/L (3.5-5.1) Chloride Level 107 mmol/L (98-107) Carbon Dioxide Level 35 mmol/L (21-32) Anion Gap 4 (6-14) Blood Urea Nitrogen 32 mg/dL (7-20) Creatinine 1.1 mg/dL (0.6-1.0) Estimated GFR (Cockcroft-Gault) 53.7 Glucose Level 268 mg/dL (70-99) Calcium Level 7.9 mg/dL (8.5-10.1) Phosphorus Level 3.2 mg/dL (2.6-4.7) Magnesium Level 2.7 mg/dL (1.8-2.4) Test 02/20/21 00:35 02/20/21 06:24 02/20/21 08:18 Glucose (Fingerstick) 216 mg/dL (70-99) 198 mg/dL (70-99) O2 Saturation 93 % (92-99) Arterial Blood pH 7.40 (7.35-7.45) Arterial Blood pCO2 at Patient Temp 54 mmHg (35-46) Arterial Blood pO2 at Patient Temp 70 mmHg (75-108) Arterial Blood HCO3 32 mmol/L (21-28) Arterial Blood Base Excess 6 mmol/L (-3-3) FiO2 85 Laboratory Tests Test 02/19/21 11:31 02/19/21 17:56 02/19/21 20:15 02/20/21 00:35 Glucose (Fingerstick) 313 mg/dL (70-99) 236 mg/dL (70-99) 216 mg/dL (70-99) Sodium Level 146 mmol/L (136-145) Potassium Level 4.2 mmol/L (3.5-5.1) Chloride Level 107 mmol/L (98-107) Carbon Dioxide Level 35 mmol/L (21-32) Anion Gap 4 (6-14) Blood Urea Nitrogen 32 mg/dL (7-20) Creatinine 1.1 mg/dL (0.6-1.0) Estimated GFR (Cockcroft-Gault) 53.7 Glucose Level 268 mg/dL (70-99) Calcium Level 7.9 mg/dL (8.5-10.1) Phosphorus Level 3.2 mg/dL (2.6-4.7) Magnesium Level 2.7 mg/dL (1.8-2.4) Test 02/20/21 06:24 02/20/21 08:18 Glucose (Fingerstick) 198 mg/dL (70-99) O2 Saturation 93 % (92-99) Arterial Blood pH 7.40 (7.35-7.45) Arterial Blood pCO2 at Patient Temp 54 mmHg (35-46) Arterial Blood pO2 at Patient Temp 70 mmHg (75-108) Arterial Blood HCO3 32 mmol/L (21-28) Arterial Blood Base Excess 6 mmol/L (-3-3) FiO2 85 Medications Active Scripts Medications Dose Route/Sig Max Daily Dose Days Date Category Novolog Flexpen (Insulin Aspart) 100 Unit/1 Ml Insuln.pen 3-7 SQ TIDACHC 02/07/21 Reported Lisinopril 5 Mg Tablet 1 Tab PO DAILY 02/07/21 Reported Lantus Solostar (Insulin Glargine,Hum.rec.anlog) 100 Unit/1 Ml Insuln.pen 5 Unit SQ QHS 04/09/15 Reported Atorvastatin Calcium 40 Mg Tablet 40 Mg PO HS 04/09/15 Reported Comments CXR 02/20 Impression: 1. Support device positioning as above. 2. Persistent and not significantly changed diffuse airspace infiltrates. Impression . IMPRESSION: 1. Acute hypoxic respiratory failure secondary to COVID-19 viral pneumonia/acute lung injury and early acute respiratory distress syndrome. S/P intubation 02/17/21 2. Nonsmoker. 3. Abnormal chest x-ray consistent with COVID-19 viral pneumonia. 4. Diabetic ketoacidosis as initial presentation, currently better.--resolved 5. Underlying obesity contributing to hypoxia as well. Plan . Updated 02/20/2021 Continue current vent support 18/450/85%/PEEP of 8 Follow chest x-ray/ABG as needed--make chagnes as needed Continue IV steroids will need full 10 days course started 02/15/2021 Continue empiric antibiotics S/P remdesivir for full course Continue tube feeding for nutritional support DVT/GI prophylaxis: Lovenox Discussed with RN and RT Critical Care time 30 minutes Updated 02/19/2021 Continue current vent support 18/450/90%/PEEP of 8 Follow chest x-ray/ABG as needed--reduce FiO2 to 85 Continue IV steroids will need full 10 days course started 02/15/2021 Continue empiric antibiotics Continue remdesivir for full course Diabetes per PCP Continue tube feeding for nutritional support DVT/GI prophylaxis: Lovenox Discussed with RN and RT Critical Care time 30 minutes Updated 02/18/2021 Continue current vent support 18/450/100%/PEEP of 8 Follow chest x-ray/ABG as needed--reduce FiO2 to 90% Continue IV steroids will need full 10 days course started 02/15/2021 Continue empiric antibiotics with Rocephin and azithromycin Continue remdesivir for full course Diabetes per PCP Continue tube feeding for nutritional support DVT/GI prophylaxis: Lovenox Discussed with RN and RT Critical Care time 30 minutes Updated 02/17/2021 Continue current supplemental oxygen with BiPAP at 100%, closely monitoring the need for intubation IPAP settings reviewed, make changes as necessary Follow chest x-ray/ABG as needed Continue IV steroids will need full 10 days course started 02/15/2021 Continue empiric antibiotics with Rocephin and azithromycin Continue remdesivir for full course Diabetes per PCP HTN per PCP Consulted dietitian for nutritional support DVT/GI prophylaxis: Lovenox Discussed with RN and RT Addendum;. Patient reevaluated again. She is unable to tolerate BiPAP at 100% FiO2. We spoke to her about the need for intubation and she agreed to it. She is now intubated on assist control mode. She will be sedated. Will obtain chest x-ray post intubation and follow ABGs and make necessary adjustments. I have called patient's and informed about her condition Critical care time 30 minutes EMILY POSADA MD Feb 20, 2021 10:00
[2021-02-20] MEDS: FAMOTIDINE 20 MG/2 ML VIAL IVP SCH ×2 (10:10→21:20)
[2021-02-20] MEDS: DEXAMETHASONE SOD PHOS 4 MG/ML VIAL IVP SCH (10:10)
[2021-02-20] MEDS: CARVEDILOL 6.25 MG TABLET. PO SCH ×2 (10:11→15:55)
[2021-02-20] MEDS: ENOXAPARIN 40 MG/0.4 ML SYRINGE. SQ SCH ×2 (10:12→21:21)
[2021-02-20] MEDS: LISINOPRIL 20 MG TABLET PO SCH (10:13)
[2021-02-20] MEDS: INSULIN GLARGINE SYRINGE. SQ SCH ×2 (10:38→21:22)
--- NOTE | 2021-02-20 11:15 | PDOC ---
[employer] PROGRESS NOTE Date of Service DOS: DATE: 02/20/21 TIME: 11:14 Chief Complaint Chief Complaint COVID-19 positive infection Tractable nausea vomiting DKA Anion gap metabolic acidosis Acute electrolyte derangementhyponatremia, hypochloremia due to volume depletion Hyperglycemia uncontrolled BOB due to vasomotor nephropathy Erythrocytosis Reglan for diabetic gastroparesis Continue Covid measures Patient intubated Pulmonary following SCD for DVT prophylaxis Protonix GI prophylaxis ADA diet Full code Discussed with RN and SW Disposition inpatient management as above Surrogate decision maker is Brian Whitmore History of Present Illness History of Present Illness 46 year old female who presents with nausea/vomiting since 7 AM yesterday morning. Patient states that her recently tested positive for Covid. She states that he "coughed in my face because he thought it was funny." She reports subjective fevers and chills and nausea/vomiting. Denies sore throat, cough, shortness of breath. No chest pain. Does have some upper abdominal discomfort after vomiting, that she attributes to muscular strain. She is not vaccinated for Covid. 02/08/2021 No acute events overnight. Patient seen and examined bedside and resting comfortably. Continues to complain of nausea not able to tolerate any diet at this time. Saturating 98% on room air. Patient's chart, labs, images were reviewed and discussed with RN 02/09/2021: Afebrile, currently breathing on room air. Still with complaints of nausea and vomiting x3 today. States that she has history of similar symptoms that have been mildly improved with IV Dilaudid. Discussed with patient that I will provide IV Dilaudid to help with her nausea, but she will not discharged on this medication. Will obtain 6-minute walk to evaluate oxygen requirements. Upon discharge, I recommend self quarantine for 10 days for resolution of her symptoms. Discussed with patient that she will discharge tomorrow. 02/10/2021: Patient febrile today with T-max 102.2 F. She still admits to nausea, denies any further vomiting. We will continue to provide supportive care and monitor for any recurrent fevers overnight. Patient continues to improve may discharge tomorrow to continue self-isolation. 02/11/2021: Febrile overnight, T-max 102.3 F. She did become hypoxic overnight, currently breathing on 4 L nasal cannula. Also admits to associated vomiting or diarrhea overnight. Discussed with RN, will initiate remdesivir and closely monitor LFTs. We will also treat with IV Decadron, and prophylactic anti biotics. 02/12/2021: Low-grade fever overnight, T-max 99.7. Currently breathing on room air. Will discontinue remdesivir, steroids, and antibiotics; will observe overnight. Still with complaints of vomiting x1 and diarrhea. We will continue to provide supportive care and hope to discharge in the next day or so. 02/13/2021: Afebrile. Still complains of intermittent diarrhea. At the time of my evaluation she was breathing on 6 L nasal cannula; this is somewhat misleading as patient states that she did not feel short of breath but was placed on 6 L by nursing staff overnight. Will have RN reassess her oxygen requirements as I did anticipate discharging today. 02/14/2021: Afebrile, currently breathing on 8 L nasal cannula. There has been some misleading documentation, chart oxygen this patient is requiring. Discussed with RN, will resume remdesivir to complete total of 5 days. Continue to monitor LFTs. Will add steroids, Rocephin, and azithromycin. Continue supportive care. 02/15/2021: Afebrile. Became much more hypoxic overnight, requiring BiPAP. At the time of my evaluation she is still breathing on BiPAP. Consultation was placed to pulmonology. Had discussion with Dr. Myrick about initiating Tocilizumab, but currently there is 1 more person in the ER that would be more deserving. When stocks are replenished, she will be first inline to receive this medication. She is also first-line to be transferred down to ICU. Critical care time 30 minutes spent reviewing labs, reviewing imaging, discussion with Dr. Myrick, and discussion with RN. 02/16/2021 No acute events overnight. Patient becoming more hypoxic saturating 94% and requiring BiPAP. Patient will be transferred to the ICU at this time. For worsening clinical status. Discussed with pulmonary. Patient's chart, labs, images were reviewed and discussed with RN 02/17/21 Transferred to ICU yesterday afternoon. Seen and examined at bedside she remains on 100% FiO2 on BiPAP. Respirations do appear somewhat labored. Suspect intubation may be impending. We will closely monitor. Increase lisinopril to 20 today. Plan of care discussed with bedside RN. 02/18/21 Patient required intubation yesterday afternoon. Saw and examined this morning. She is intubated and sedated. Increase insulin today. Covid protocol ordered. Wean as tolerated. Plan of care discussed with bedside nurse. 02/19/21 Bedside. She remains intubated and sedated. Continue Covid protocol. Wean oxygen sedation as tolerated. Pulmonary following. Plan of care discussed with bedside RN. 02/20/21 Patient seen and examined at bedside. She remains intubated and sedated. No major clinical changes. Continue current treatment. Pulmonary following. Plan of care discussed with bedside RN. Vitals/I&O Vitals/I&O: Vital Signs Date Time Temp Pulse Resp B/P (MAP) Pulse Ox O2 Delivery O2 Flow Rate FiO2 02/20/21 10:13 58 105/62 02/20/21 10:00 18 100 Ventilator 02/20/21 08:00 99.3 99.3 I & O 02/19/21 02/19/21 02/20/21 15:00 23:00 07:00 Intake Total 200 ml 1324 ml 1072 ml Output Total 575 ml 475 ml 425 ml Balance -375 ml 849 ml 647 ml Physical Exam General: Other (Intubated and sedated) Heart: Regular rate Lungs: Other Abdomen: Normal bowel sounds Extremities: No clubbing, No edema Skin: No rashes, No significant lesion Labs Labs: Laboratory Tests Test 02/19/21 11:31 02/19/21 17:56 02/19/21 20:15 02/20/21 00:35 Glucose (Fingerstick) 313 mg/dL (70-99) 236 mg/dL (70-99) 216 mg/dL (70-99) Sodium Level 146 mmol/L (136-145) Potassium Level 4.2 mmol/L (3.5-5.1) Chloride Level 107 mmol/L (98-107) Carbon Dioxide Level 35 mmol/L (21-32) Anion Gap 4 (6-14) Blood Urea Nitrogen 32 mg/dL (7-20) Creatinine 1.1 mg/dL (0.6-1.0) Estimated GFR (Cockcroft-Gault) 53.7 Glucose Level 268 mg/dL (70-99) Calcium Level 7.9 mg/dL (8.5-10.1) Phosphorus Level 3.2 mg/dL (2.6-4.7) Magnesium Level 2.7 mg/dL (1.8-2.4) Test 02/20/21 06:24 02/20/21 08:18 02/20/21 10:22 Glucose (Fingerstick) 198 mg/dL (70-99) 180 mg/dL (70-99) O2 Saturation 93 % (92-99) Arterial Blood pH 7.40 (7.35-7.45) Arterial Blood pCO2 at Patient Temp 54 mmHg (35-46) Arterial Blood pO2 at Patient Temp 70 mmHg (75-108) Arterial Blood HCO3 32 mmol/L (21-28) Arterial Blood Base Excess 6 mmol/L (-3-3) FiO2 85 Review of Systems Review of Systems: Cannot obtain Assessment and Plan Assessmemt and Plan Problems Medical Problems: (1) Ketoacidosis Status: Acute Comment Review of Relevant I have reviewed the following items mazin (where applicable) has been applied. Medications: Current Medications Medications (Trade) Dose Ordered Sig/Pepe Route PRN Reason Start Time Stop Time Status Last Admin Dose Admin Insulin Human Lispro (HumaLOG) 8 units Q6HRS SQ 02/19/21 12:00 02/19/21 12:32 DC 02/19/21 11:33 Insulin Human Lispro (HumaLOG) 10 units Q6HRS SQ 02/19/21 18:00 02/20/21 08:14 DC 02/20/21 06:38 Justifications for Admission Other Justification LEO DELGADO MD Feb 20, 2021 11:15
[2021-02-20] MEDS: cefTRIAXone IV Push 1 GM VIAL. IVP SCH (12:00)
--- NOTE | 2021-02-20 15:50 | NUR ---
SS following up with discharge planning. SS reviewed pt chart and discussed with pt RN. Pt is currently on the vent at 85%. COVID19 positive. Pt on IV Rocephin and IV Decadron. Pt on Versed, Fentanyl, and Propofol. Self pay. Not stable. SS will continue to follow for discharge planning.
[2021-02-20] MEDS: MIDAZOLAM 100mg/100ml NS BAG 100 ML IV PRN (20:45)
[2021-02-20] MEDS: ATORVASTATIN CALCIUM 40 MG TABLET. PO SCH (21:20)
[2021-02-21] VITALS (23 sets, daily range): BP systolic 117–169; BP diastolic 54–82
[2021-02-21] MEDS: INSULIN LISPRO 300 UNITS/3 ML VIAL. SQ SCH ×8 (00:06→17:40)
--- NOTE | 2021-02-21 01:45 | NUR ---
PICC Line pulled back: Right upper arm PICC line was pulled out 2cm by this nurse on 02/21 due to several runs of V-Tach while on right side. [place] nurse looked at chest x-ray with this nurse and agreed PICC line appears to look too far in arm. PICC line is now pulled out 2 cm from arm - line flushes and draws back blood with no difficulties. Line is taped and secured to arm. Patient is able to turn to right side with no runs of V Tach - will continue to monitor.
[2021-02-21] MEDS: PROPOFOL 100 ML IV PRN ×3 (02:15→17:36)
[2021-02-21] MEDS: MIDAZOLAM 100mg/100ml NS BAG 100 ML IV PRN ×2 (05:57→17:36)
[2021-02-21] MEDS: DEXAMETHASONE SOD PHOS 4 MG/ML VIAL IVP SCH (08:03)
[2021-02-21] MEDS: LISINOPRIL 20 MG TABLET PO SCH (08:04)
[2021-02-21] MEDS: CARVEDILOL 6.25 MG TABLET. PO SCH ×2 (08:04→17:35)
[2021-02-21] MEDS: FAMOTIDINE 20 MG/2 ML VIAL IVP SCH ×2 (08:05→20:14)
[2021-02-21 08:44] LABS: BASO % 0 % (0-3); EOS # 0.2 x10^3/uL (0.0-0.7); EOS % 2 % (0-3); HEMATOCRIT 33.8 % (36.0-47.0); HEMOGLOBIN 11.2 g/dL (12.0-15.5); LYMPH # 0.9 x10^3/uL (1.0-4.8); LYMPH % 7 % (24-48); MEAN CORPUSCULAR HEMOGLOBIN 30 pg (25-35); MEAN CORPUSCULAR HGB CONC 33 g/dL (31-37); MEAN CORPUSCULAR VOLUME 90 fL (79-100); MONO # 0.7 x10^3/uL (0.0-1.1); MONO % 5 % (0-9); NEUT # 12.7 x10^3/uL (1.8-7.7); NEUT % 87 % (31-73); PLATELET COUNT 185 x10^3/uL (140-400); RED BLOOD COUNT 3.77 x10^6/uL (3.50-5.40); RED CELL DISTRIBUTION WIDTH 13.8 % (11.5-14.5); WHITE BLOOD COUNT 14.6 x10^3/uL (4.0-11.0)
[2021-02-21 08:53] LABS: BASE EXCESS ABG 8 mmol/L (-3-3); FIO2 ABG 85; HCO3 ABG 34 mmol/L (21-28); PCO2 ABG 50 mmHg (35-46); PO2 ABG 84 mmHg (75-108); SAT O2 ABG 96 % (92-99)
[2021-02-21 08:54] LABS: CALCIUM 8.3 mg/dL (8.5-10.1); CREATININE 0.9 mg/dL (0.6-1.0); GFR 67.7; MAGNESIUM 2.5 mg/dL (1.8-2.4)
--- NOTE | 2021-02-21 09:41 | PDOC ---
PULMONARY PROGRESS NOTES DATE: 02/21/21 TIME: 09:41 Subjective Patient with remains on ventilatory support, intubated 02/17/2021 Sedated with propofol, fentanyl and Versed No overnight concerns from nursing Vitals Vital Signs Date Time Temp Pulse Resp B/P (MAP) Pulse Ox O2 Delivery O2 Flow Rate FiO2 02/21/21 09:24 98 Ventilator 02/21/21 08:04 55 128/69 02/21/21 06:00 20 02/21/21 04:00 98.5 98.5 Comments Visual exam done due to COVID-19. intubated No paradoxical breathing. No skin rash or leg edema. Labs Laboratory Tests Test 02/19/21 11:31 02/19/21 17:56 02/19/21 20:15 02/20/21 00:35 Glucose (Fingerstick) 313 mg/dL (70-99) 236 mg/dL (70-99) 216 mg/dL (70-99) Sodium Level 146 mmol/L (136-145) Potassium Level 4.2 mmol/L (3.5-5.1) Chloride Level 107 mmol/L (98-107) Carbon Dioxide Level 35 mmol/L (21-32) Anion Gap 4 (6-14) Blood Urea Nitrogen 32 mg/dL (7-20) Creatinine 1.1 mg/dL (0.6-1.0) Estimated GFR (Cockcroft-Gault) 53.7 Glucose Level 268 mg/dL (70-99) Calcium Level 7.9 mg/dL (8.5-10.1) Phosphorus Level 3.2 mg/dL (2.6-4.7) Magnesium Level 2.7 mg/dL (1.8-2.4) Test 02/20/21 06:24 02/20/21 08:18 02/20/21 10:22 02/20/21 11:57 Glucose (Fingerstick) 198 mg/dL (70-99) 180 mg/dL (70-99) 159 mg/dL (70-99) O2 Saturation 93 % (92-99) Arterial Blood pH 7.40 (7.35-7.45) Arterial Blood pCO2 at Patient Temp 54 mmHg (35-46) Arterial Blood pO2 at Patient Temp 70 mmHg (75-108) Arterial Blood HCO3 32 mmol/L (21-28) Arterial Blood Base Excess 6 mmol/L (-3-3) FiO2 85 Test 02/20/21 17:59 02/20/21 23:47 02/21/21 05:52 02/21/21 08:20 Glucose (Fingerstick) 147 mg/dL (70-99) 159 mg/dL (70-99) 135 mg/dL (70-99) White Blood Count 14.6 x10^3/uL (4.0-11.0) Red Blood Count 3.77 x10^6/uL (3.50-5.40) Hemoglobin 11.2 g/dL (12.0-15.5) Hematocrit 33.8 % (36.0-47.0) Mean Corpuscular Volume 90 fL (79-100) Mean Corpuscular Hemoglobin 30 pg (25-35) Mean Corpuscular Hemoglobin Concent 33 g/dL (31-37) Red Cell Distribution Width 13.8 % (11.5-14.5) Platelet Count 185 x10^3/uL (140-400) Neutrophils (%) (Auto) 87 % (31-73) Lymphocytes (%) (Auto) 7 % (24-48) Monocytes (%) (Auto) 5 % (0-9) Eosinophils (%) (Auto) 2 % (0-3) Basophils (%) (Auto) 0 % (0-3) Neutrophils # (Auto) 12.7 x10^3/uL (1.8-7.7) Lymphocytes # (Auto) 0.9 x10^3/uL (1.0-4.8) Monocytes # (Auto) 0.7 x10^3/uL (0.0-1.1) Eosinophils # (Auto) 0.2 x10^3/uL (0.0-0.7) Basophils # (Auto) 0.0 x10^3/uL (0.0-0.2) Sodium Level 147 mmol/L (136-145) Potassium Level 4.0 mmol/L (3.5-5.1) Chloride Level 110 mmol/L (98-107) Carbon Dioxide Level 37 mmol/L (21-32) Anion Gap 0 (6-14) Blood Urea Nitrogen 31 mg/dL (7-20) Creatinine 0.9 mg/dL (0.6-1.0) Estimated GFR (Cockcroft-Gault) 67.7 Glucose Level 131 mg/dL (70-99) Calcium Level 8.3 mg/dL (8.5-10.1) Magnesium Level 2.5 mg/dL (1.8-2.4) Test 02/21/21 08:45 O2 Saturation 96 % (92-99) Arterial Blood pH 7.44 (7.35-7.45) Arterial Blood pCO2 at Patient Temp 50 mmHg (35-46) Arterial Blood pO2 at Patient Temp 84 mmHg (75-108) Arterial Blood HCO3 34 mmol/L (21-28) Arterial Blood Base Excess 8 mmol/L (-3-3) FiO2 85 Laboratory Tests Test 02/20/21 10:22 02/20/21 11:57 02/20/21 17:59 02/20/21 23:47 Glucose (Fingerstick) 180 mg/dL (70-99) 159 mg/dL (70-99) 147 mg/dL (70-99) 159 mg/dL (70-99) Test 02/21/21 05:52 02/21/21 08:20 02/21/21 08:45 Glucose (Fingerstick) 135 mg/dL (70-99) White Blood Count 14.6 x10^3/uL (4.0-11.0) Red Blood Count 3.77 x10^6/uL (3.50-5.40) Hemoglobin 11.2 g/dL (12.0-15.5) Hematocrit 33.8 % (36.0-47.0) Mean Corpuscular Volume 90 fL (79-100) Mean Corpuscular Hemoglobin 30 pg (25-35) Mean Corpuscular Hemoglobin Concent 33 g/dL (31-37) Red Cell Distribution Width 13.8 % (11.5-14.5) Platelet Count 185 x10^3/uL (140-400) Neutrophils (%) (Auto) 87 % (31-73) Lymphocytes (%) (Auto) 7 % (24-48) Monocytes (%) (Auto) 5 % (0-9) Eosinophils (%) (Auto) 2 % (0-3) Basophils (%) (Auto) 0 % (0-3) Neutrophils # (Auto) 12.7 x10^3/uL (1.8-7.7) Lymphocytes # (Auto) 0.9 x10^3/uL (1.0-4.8) Monocytes # (Auto) 0.7 x10^3/uL (0.0-1.1) Eosinophils # (Auto) 0.2 x10^3/uL (0.0-0.7) Basophils # (Auto) 0.0 x10^3/uL (0.0-0.2) Sodium Level 147 mmol/L (136-145) Potassium Level 4.0 mmol/L (3.5-5.1) Chloride Level 110 mmol/L (98-107) Carbon Dioxide Level 37 mmol/L (21-32) Anion Gap 0 (6-14) Blood Urea Nitrogen 31 mg/dL (7-20) Creatinine 0.9 mg/dL (0.6-1.0) Estimated GFR (Cockcroft-Gault) 67.7 Glucose Level 131 mg/dL (70-99) Calcium Level 8.3 mg/dL (8.5-10.1) Magnesium Level 2.5 mg/dL (1.8-2.4) O2 Saturation 96 % (92-99) Arterial Blood pH 7.44 (7.35-7.45) Arterial Blood pCO2 at Patient Temp 50 mmHg (35-46) Arterial Blood pO2 at Patient Temp 84 mmHg (75-108) Arterial Blood HCO3 34 mmol/L (21-28) Arterial Blood Base Excess 8 mmol/L (-3-3) FiO2 85 Medications Active Scripts Medications Dose Route/Sig Max Daily Dose Days Date Category Novolog Flexpen (Insulin Aspart) 100 Unit/1 Ml Insuln.pen 3-7 SQ TIDACHC 02/07/21 Reported Lisinopril 5 Mg Tablet 1 Tab PO DAILY 02/07/21 Reported Lantus Solostar (Insulin Glargine,Hum.rec.anlog) 100 Unit/1 Ml Insuln.pen 5 Unit SQ QHS 04/09/15 Reported Atorvastatin Calcium 40 Mg Tablet 40 Mg PO HS 04/09/15 Reported Comments CXR 02/20 Impression: 1. Support device positioning as above. 2. Persistent and not significantly changed diffuse airspace infiltrates. Impression . IMPRESSION: 1. Acute hypoxic respiratory failure secondary to COVID-19 viral pneumonia/acute lung injury and early acute respiratory distress syndrome. S/P intubation 02/17/21 2. Nonsmoker. 3. Abnormal chest x-ray consistent with COVID-19 viral pneumonia. 4. Diabetic ketoacidosis as initial presentation, currently better.--resolved 5. Underlying obesity contributing to hypoxia as well. Plan . Updated 02/21/2021 Continue current vent support 18/450/85%/PEEP of 8 Follow chest x-ray/ABG as needed--make chagnes as needed Continue IV steroids will need full 10 days course started 02/15/2021 Continue empiric antibiotics S/P remdesivir for full course Continue tube feeding for nutritional support DVT/GI prophylaxis: Lovenox Discussed with RN and RT Critical Care time 30 minutes Updated 02/20/2021 Continue current vent support 18/450/85%/PEEP of 8 Follow chest x-ray/ABG as needed--make chagnes as needed Continue IV steroids will need full 10 days course started 02/15/2021 Continue empiric antibiotics S/P remdesivir for full course Continue tube feeding for nutritional support DVT/GI prophylaxis: Lovenox Discussed with RN and RT Critical Care time 30 minutes Updated 02/19/2021 Continue current vent support 18/450/90%/PEEP of 8 Follow chest x-ray/ABG as needed--reduce FiO2 to 85 Continue IV steroids will need full 10 days course started 02/15/2021 Continue empiric antibiotics Continue remdesivir for full course Diabetes per PCP Continue tube feeding for nutritional support DVT/GI prophylaxis: Lovenox Discussed with RN and RT Critical Care time 30 minutes Updated 02/18/2021 Continue current vent support 18/450/100%/PEEP of 8 Follow chest x-ray/ABG as needed--reduce FiO2 to 90% Continue IV steroids will need full 10 days course started 02/15/2021 Continue empiric antibiotics with Rocephin and azithromycin Continue remdesivir for full course Diabetes per PCP Continue tube feeding for nutritional support DVT/GI prophylaxis: Lovenox Discussed with RN and RT Critical Care time 30 minutes Updated 02/17/2021 Continue current supplemental oxygen with BiPAP at 100%, closely monitoring the need for intubation IPAP settings reviewed, make changes as necessary Follow chest x-ray/ABG as needed Continue IV steroids will need full 10 days course started 02/15/2021 Continue empiric antibiotics with Rocephin and azithromycin Continue remdesivir for full course Diabetes per PCP HTN per PCP Consulted dietitian for nutritional support DVT/GI prophylaxis: Lovenox Discussed with RN and RT Addendum;. Patient reevaluated again. She is unable to tolerate BiPAP at 100% FiO2. We spoke to her about the need for intubation and she agreed to it. She is now intubated on assist control mode. She will be sedated. Will obtain chest x-ray post intubation and follow ABGs and make necessary adjustments. I have called patient's and informed about her condition Critical care time 30 minutes EMILY POSADA MD Feb 21, 2021 09:41
--- NOTE | 2021-02-21 11:31 | PDOC ---
[facility] PROGRESS NOTE Date of Service DOS: DATE: 02/21/21 TIME: 11:30 Chief Complaint Chief Complaint COVID-19 positive infection Tractable nausea vomiting DKA Anion gap metabolic acidosis Acute electrolyte derangementhyponatremia, hypochloremia due to volume depletion Hyperglycemia uncontrolled BOB due to vasomotor nephropathy Erythrocytosis Reglan for diabetic gastroparesis Continue Covid measures Patient intubated Pulmonary following SCD for DVT prophylaxis Protonix GI prophylaxis ADA diet Full code Discussed with RN and SW Disposition inpatient management as above Surrogate decision maker is Brian Whitmore History of Present Illness History of Present Illness 46 year old female who presents with nausea/vomiting since 7 AM yesterday morning. Patient states that her recently tested positive for Covid. She states that he "coughed in my face because he thought it was funny." She reports subjective fevers and chills and nausea/vomiting. Denies sore throat, cough, shortness of breath. No chest pain. Does have some upper abdominal discomfort after vomiting, that she attributes to muscular strain. She is not vaccinated for Covid. 02/08/2021 No acute events overnight. Patient seen and examined bedside and resting comfortably. Continues to complain of nausea not able to tolerate any diet at this time. Saturating 98% on room air. Patient's chart, labs, images were reviewed and discussed with RN 02/09/2021: Afebrile, currently breathing on room air. Still with complaints of nausea and vomiting x3 today. States that she has history of similar symptoms that have been mildly improved with IV Dilaudid. Discussed with patient that I will provide IV Dilaudid to help with her nausea, but she will not discharged on this medication. Will obtain 6-minute walk to evaluate oxygen requirements. Upon discharge, I recommend self quarantine for 10 days for resolution of her symptoms. Discussed with patient that she will discharge tomorrow. 02/10/2021: Patient febrile today with T-max 102.2 F. She still admits to nausea, denies any further vomiting. We will continue to provide supportive care and monitor for any recurrent fevers overnight. Patient continues to improve may discharge tomorrow to continue self-isolation. 02/11/2021: Febrile overnight, T-max 102.3 F. She did become hypoxic overnight, currently breathing on 4 L nasal cannula. Also admits to associated vomiting or diarrhea overnight. Discussed with RN, will initiate remdesivir and closely monitor LFTs. We will also treat with IV Decadron, and prophylactic anti biotics. 02/12/2021: Low-grade fever overnight, T-max 99.7. Currently breathing on room air. Will discontinue remdesivir, steroids, and antibiotics; will observe overnight. Still with complaints of vomiting x1 and diarrhea. We will continue to provide supportive care and hope to discharge in the next day or so. 02/13/2021: Afebrile. Still complains of intermittent diarrhea. At the time of my evaluation she was breathing on 6 L nasal cannula; this is somewhat misleading as patient states that she did not feel short of breath but was placed on 6 L by nursing staff overnight. Will have RN reassess her oxygen requirements as I did anticipate discharging today. 02/14/2021: Afebrile, currently breathing on 8 L nasal cannula. There has been some misleading documentation, chart oxygen this patient is requiring. Discussed with RN, will resume remdesivir to complete total of 5 days. Continue to monitor LFTs. Will add steroids, Rocephin, and azithromycin. Continue supportive care. 02/15/2021: Afebrile. Became much more hypoxic overnight, requiring BiPAP. At the time of my evaluation she is still breathing on BiPAP. Consultation was placed to pulmonology. Had discussion with Dr. Myrick about initiating Tocilizumab, but currently there is 1 more person in the ER that would be more deserving. When stocks are replenished, she will be first inline to receive this medication. She is also first-line to be transferred down to ICU. Critical care time 30 minutes spent reviewing labs, reviewing imaging, discussion with Dr. Myrick, and discussion with RN. 02/16/2021 No acute events overnight. Patient becoming more hypoxic saturating 94% and requiring BiPAP. Patient will be transferred to the ICU at this time. For worsening clinical status. Discussed with pulmonary. Patient's chart, labs, images were reviewed and discussed with RN 02/17/21 Transferred to ICU yesterday afternoon. Seen and examined at bedside she remains on 100% FiO2 on BiPAP. Respirations do appear somewhat labored. Suspect intubation may be impending. We will closely monitor. Increase lisinopril to 20 today. Plan of care discussed with bedside RN. 02/18/21 Patient required intubation yesterday afternoon. Saw and examined this morning. She is intubated and sedated. Increase insulin today. Covid protocol ordered. Wean as tolerated. Plan of care discussed with bedside nurse. 02/19/21 Bedside. She remains intubated and sedated. Continue Covid protocol. Wean oxygen sedation as tolerated. Pulmonary following. Plan of care discussed with bedside RN. 02/20/21 Patient seen and examined at bedside. She remains intubated and sedated. No major clinical changes. Continue current treatment. Pulmonary following. Plan of care discussed with bedside RN. 02/21/21 Patient seen and examined at bedside. Remains intubated and sedated date and admission clinical changes. Increase free water flushes today due to hypernatremia. Plan of care discussed with bedside nurse. Vitals/I&O Vitals/I&O: Vital Signs Date Time Temp Pulse Resp B/P (MAP) Pulse Ox O2 Delivery O2 Flow Rate FiO2 02/21/21 11:08 98 Ventilator 02/21/21 08:04 55 128/69 02/21/21 06:00 20 02/21/21 04:00 98.5 98.5 I & O 02/20/21 02/20/21 02/21/21 15:00 23:00 07:00 Intake Total 230 ml 1352 ml 1008 ml Output Total 365 ml 285 ml 410 ml Balance -135 ml 1067 ml 598 ml Physical Exam General: Other (Intubated and sedated) Heart: Regular rate Abdomen: Normal bowel sounds Extremities: No clubbing, No edema Skin: No rashes, No significant lesion Labs Labs: Laboratory Tests Test 02/20/21 11:57 02/20/21 17:59 02/20/21 23:47 02/21/21 05:52 Glucose (Fingerstick) 159 mg/dL (70-99) 147 mg/dL (70-99) 159 mg/dL (70-99) 135 mg/dL (70-99) Test 02/21/21 08:20 02/21/21 08:45 White Blood Count 14.6 x10^3/uL (4.0-11.0) Red Blood Count 3.77 x10^6/uL (3.50-5.40) Hemoglobin 11.2 g/dL (12.0-15.5) Hematocrit 33.8 % (36.0-47.0) Mean Corpuscular Volume 90 fL (79-100) Mean Corpuscular Hemoglobin 30 pg (25-35) Mean Corpuscular Hemoglobin Concent 33 g/dL (31-37) Red Cell Distribution Width 13.8 % (11.5-14.5) Platelet Count 185 x10^3/uL (140-400) Neutrophils (%) (Auto) 87 % (31-73) Lymphocytes (%) (Auto) 7 % (24-48) Monocytes (%) (Auto) 5 % (0-9) Eosinophils (%) (Auto) 2 % (0-3) Basophils (%) (Auto) 0 % (0-3) Neutrophils # (Auto) 12.7 x10^3/uL (1.8-7.7) Lymphocytes # (Auto) 0.9 x10^3/uL (1.0-4.8) Monocytes # (Auto) 0.7 x10^3/uL (0.0-1.1) Eosinophils # (Auto) 0.2 x10^3/uL (0.0-0.7) Basophils # (Auto) 0.0 x10^3/uL (0.0-0.2) Sodium Level 147 mmol/L (136-145) Potassium Level 4.0 mmol/L (3.5-5.1) Chloride Level 110 mmol/L (98-107) Carbon Dioxide Level 37 mmol/L (21-32) Anion Gap 0 (6-14) Blood Urea Nitrogen 31 mg/dL (7-20) Creatinine 0.9 mg/dL (0.6-1.0) Estimated GFR (Cockcroft-Gault) 67.7 Glucose Level 131 mg/dL (70-99) Calcium Level 8.3 mg/dL (8.5-10.1) Magnesium Level 2.5 mg/dL (1.8-2.4) O2 Saturation 96 % (92-99) Arterial Blood pH 7.44 (7.35-7.45) Arterial Blood pCO2 at Patient Temp 50 mmHg (35-46) Arterial Blood pO2 at Patient Temp 84 mmHg (75-108) Arterial Blood HCO3 34 mmol/L (21-28) Arterial Blood Base Excess 8 mmol/L (-3-3) FiO2 85 Review of Systems Review of Systems: Cannot obtain Assessment and Plan Assessmemt and Plan Problems Medical Problems: (1) Ketoacidosis Status: Acute Comment Review of Relevant I have reviewed the following items mazin (where applicable) has been applied. Medications: Current Medications Medications (Trade) Dose Ordered Sig/Pepe Route PRN Reason Start Time Stop Time Status Last Admin Dose Admin Insulin Human Lispro (HumaLOG) 12 units Q6HRS SQ 02/20/21 12:00 02/21/21 00:07 Justifications for Admission Other Justification LEO DELGADO MD Feb 21, 2021 11:31
[2021-02-21] MEDS: ENOXAPARIN 40 MG/0.4 ML SYRINGE. SQ SCH ×2 (11:33→20:15)
[2021-02-21] MEDS: cefTRIAXone IV Push 1 GM VIAL. IVP SCH (11:34)
[2021-02-21] MEDS: INSULIN GLARGINE SYRINGE. SQ SCH ×2 (11:34→21:00)
[2021-02-21] MEDS: ATORVASTATIN CALCIUM 40 MG TABLET. PO SCH (20:15)
[2021-02-22] VITALS (24 sets, daily range): BP systolic 138–198; BP diastolic 64–88
[2021-02-22] MEDS: INSULIN LISPRO 300 UNITS/3 ML VIAL. SQ SCH ×8 (00:09→18:48)
[2021-02-22] MEDS: PROPOFOL 100 ML IV PRN ×4 (00:50→23:14)
[2021-02-22] MEDS: MIDAZOLAM 100mg/100ml NS BAG 100 ML IV PRN ×2 (03:26→15:12)
[2021-02-22 06:06] LABS: HEMATOCRIT 32.1 % (36.0-47.0); RED BLOOD COUNT 3.58 x10^6/uL (3.50-5.40); RED CELL DISTRIBUTION WIDTH 13.5 % (11.5-14.5); WHITE BLOOD COUNT 13.8 x10^3/uL (4.0-11.0)
[2021-02-22 06:10] LABS: ALBUMIN 1.4 g/dL (3.4-5.0); ALBUMIN/GLOBULIN RATIO 0.4 (1.0-1.7); CALCIUM 7.4 mg/dL (8.5-10.1); CREATININE 0.9 mg/dL (0.6-1.0); GFR 67.7; POTASSIUM 4.8 mmol/L (3.5-5.1); TOTAL BILIRUBIN 0.4 mg/dL (0.2-1.0); TOTAL PROTEIN 5.2 g/dL (6.4-8.2)
[2021-02-22 08:10] LABS: BASE EXCESS ABG 8 mmol/L (-3-3); HCO3 ABG 34 mmol/L (21-28); PCO2 ABG 52 mmHg (35-46); PO2 ABG 90 mmHg (75-108); SAT O2 ABG 96 % (92-99)
[2021-02-22] MEDS: DEXAMETHASONE SOD PHOS 4 MG/ML VIAL IVP SCH (08:29)
[2021-02-22] MEDS: FAMOTIDINE 20 MG/2 ML VIAL IVP SCH ×2 (08:29→20:43)
[2021-02-22] MEDS: CARVEDILOL 6.25 MG TABLET. PO SCH ×2 (08:30→17:12)
[2021-02-22] MEDS: LISINOPRIL 20 MG TABLET PO SCH (08:30)
[2021-02-22] MEDS: ENOXAPARIN 40 MG/0.4 ML SYRINGE. SQ SCH ×2 (08:32→21:11)
[2021-02-22 09:07] LABS: FIO2 ABG 75/VENT
--- NOTE | 2021-02-22 09:10 | PDOC ---
PULMONARY PROGRESS NOTES DATE: 02/22/21 TIME: 09:07 Subjective Patient with remains on ventilatory support, intubated 02/17/2021 Sedated with propofol, fentanyl and Versed No overnight concerns from nursing Vitals Vital Signs Date Time Temp Pulse Resp B/P (MAP) Pulse Ox O2 Delivery O2 Flow Rate FiO2 02/22/21 08:30 54 153/76 02/22/21 08:00 100 Ventilator 02/22/21 07:00 18 02/22/21 04:00 98.7 98.7 02/21/21 15:52 15.0 Comments Visual exam done due to COVID-19. intubated No paradoxical breathing. No skin rash or leg edema. Labs Laboratory Tests Test 02/20/21 10:22 02/20/21 11:57 02/20/21 17:59 02/20/21 23:47 Glucose (Fingerstick) 180 mg/dL (70-99) 159 mg/dL (70-99) 147 mg/dL (70-99) 159 mg/dL (70-99) Test 02/21/21 05:52 02/21/21 08:20 02/21/21 08:45 02/21/21 11:37 Glucose (Fingerstick) 135 mg/dL (70-99) 150 mg/dL (70-99) White Blood Count 14.6 x10^3/uL (4.0-11.0) Red Blood Count 3.77 x10^6/uL (3.50-5.40) Hemoglobin 11.2 g/dL (12.0-15.5) Hematocrit 33.8 % (36.0-47.0) Mean Corpuscular Volume 90 fL (79-100) Mean Corpuscular Hemoglobin 30 pg (25-35) Mean Corpuscular Hemoglobin Concent 33 g/dL (31-37) Red Cell Distribution Width 13.8 % (11.5-14.5) Platelet Count 185 x10^3/uL (140-400) Neutrophils (%) (Auto) 87 % (31-73) Lymphocytes (%) (Auto) 7 % (24-48) Monocytes (%) (Auto) 5 % (0-9) Eosinophils (%) (Auto) 2 % (0-3) Basophils (%) (Auto) 0 % (0-3) Neutrophils # (Auto) 12.7 x10^3/uL (1.8-7.7) Lymphocytes # (Auto) 0.9 x10^3/uL (1.0-4.8) Monocytes # (Auto) 0.7 x10^3/uL (0.0-1.1) Eosinophils # (Auto) 0.2 x10^3/uL (0.0-0.7) Basophils # (Auto) 0.0 x10^3/uL (0.0-0.2) Sodium Level 147 mmol/L (136-145) Potassium Level 4.0 mmol/L (3.5-5.1) Chloride Level 110 mmol/L (98-107) Carbon Dioxide Level 37 mmol/L (21-32) Anion Gap 0 (6-14) Blood Urea Nitrogen 31 mg/dL (7-20) Creatinine 0.9 mg/dL (0.6-1.0) Estimated GFR (Cockcroft-Gault) 67.7 Glucose Level 131 mg/dL (70-99) Calcium Level 8.3 mg/dL (8.5-10.1) Magnesium Level 2.5 mg/dL (1.8-2.4) O2 Saturation 96 % (92-99) Arterial Blood pH 7.44 (7.35-7.45) Arterial Blood pCO2 at Patient Temp 50 mmHg (35-46) Arterial Blood pO2 at Patient Temp 84 mmHg (75-108) Arterial Blood HCO3 34 mmol/L (21-28) Arterial Blood Base Excess 8 mmol/L (-3-3) FiO2 85 Test 02/21/21 17:38 02/22/21 00:01 02/22/21 05:10 02/22/21 08:00 Glucose (Fingerstick) 186 mg/dL (70-99) 174 mg/dL (70-99) White Blood Count 13.8 x10^3/uL (4.0-11.0) Red Blood Count 3.58 x10^6/uL (3.50-5.40) Hemoglobin 11.0 g/dL (12.0-15.5) Hematocrit 32.1 % (36.0-47.0) Mean Corpuscular Volume 90 fL (79-100) Mean Corpuscular Hemoglobin 31 pg (25-35) Mean Corpuscular Hemoglobin Concent 34 g/dL (31-37) Red Cell Distribution Width 13.5 % (11.5-14.5) Platelet Count 215 x10^3/uL (140-400) Sodium Level 145 mmol/L (136-145) Potassium Level 4.8 mmol/L (3.5-5.1) Chloride Level 106 mmol/L (98-107) Carbon Dioxide Level 37 mmol/L (21-32) Anion Gap 2 (6-14) Blood Urea Nitrogen 32 mg/dL (7-20) Creatinine 0.9 mg/dL (0.6-1.0) Estimated GFR (Cockcroft-Gault) 67.7 BUN/Creatinine Ratio 36 (6-20) Glucose Level 240 mg/dL (70-99) Calcium Level 7.4 mg/dL (8.5-10.1) Total Bilirubin 0.4 mg/dL (0.2-1.0) Aspartate Amino Transf (AST/SGOT) 49 U/L (15-37) Alanine Aminotransferase (ALT/SGPT) 31 U/L (14-59) Alkaline Phosphatase 86 U/L (46-116) Total Protein 5.2 g/dL (6.4-8.2) Albumin 1.4 g/dL (3.4-5.0) Albumin/Globulin Ratio 0.4 (1.0-1.7) O2 Saturation 96 % (92-99) Arterial Blood pH 7.43 (7.35-7.45) Arterial Blood pCO2 at Patient Temp 52 mmHg (35-46) Arterial Blood pO2 at Patient Temp 90 mmHg (75-108) Arterial Blood HCO3 34 mmol/L (21-28) Arterial Blood Base Excess 8 mmol/L (-3-3) FiO2 75/vent Laboratory Tests Test 02/21/21 11:37 02/21/21 17:38 02/22/21 00:01 02/22/21 05:10 Glucose (Fingerstick) 150 mg/dL (70-99) 186 mg/dL (70-99) 174 mg/dL (70-99) White Blood Count 13.8 x10^3/uL (4.0-11.0) Red Blood Count 3.58 x10^6/uL (3.50-5.40) Hemoglobin 11.0 g/dL (12.0-15.5) Hematocrit 32.1 % (36.0-47.0) Mean Corpuscular Volume 90 fL (79-100) Mean Corpuscular Hemoglobin 31 pg (25-35) Mean Corpuscular Hemoglobin Concent 34 g/dL (31-37) Red Cell Distribution Width 13.5 % (11.5-14.5) Platelet Count 215 x10^3/uL (140-400) Sodium Level 145 mmol/L (136-145) Potassium Level 4.8 mmol/L (3.5-5.1) Chloride Level 106 mmol/L (98-107) Carbon Dioxide Level 37 mmol/L (21-32) Anion Gap 2 (6-14) Blood Urea Nitrogen 32 mg/dL (7-20) Creatinine 0.9 mg/dL (0.6-1.0) Estimated GFR (Cockcroft-Gault) 67.7 BUN/Creatinine Ratio 36 (6-20) Glucose Level 240 mg/dL (70-99) Calcium Level 7.4 mg/dL (8.5-10.1) Total Bilirubin 0.4 mg/dL (0.2-1.0) Aspartate Amino Transf (AST/SGOT) 49 U/L (15-37) Alanine Aminotransferase (ALT/SGPT) 31 U/L (14-59) Alkaline Phosphatase 86 U/L (46-116) Total Protein 5.2 g/dL (6.4-8.2) Albumin 1.4 g/dL (3.4-5.0) Albumin/Globulin Ratio 0.4 (1.0-1.7) Test 02/22/21 08:00 O2 Saturation 96 % (92-99) Arterial Blood pH 7.43 (7.35-7.45) Arterial Blood pCO2 at Patient Temp 52 mmHg (35-46) Arterial Blood pO2 at Patient Temp 90 mmHg (75-108) Arterial Blood HCO3 34 mmol/L (21-28) Arterial Blood Base Excess 8 mmol/L (-3-3) FiO2 75/vent Medications Active Scripts Medications Dose Route/Sig Max Daily Dose Days Date Category Novolog Flexpen (Insulin Aspart) 100 Unit/1 Ml Insuln.pen 3-7 SQ TIDACHC 02/07/21 Reported Lisinopril 5 Mg Tablet 1 Tab PO DAILY 02/07/21 Reported Lantus Solostar (Insulin Glargine,Hum.rec.anlog) 100 Unit/1 Ml Insuln.pen 5 Unit SQ QHS 04/09/15 Reported Atorvastatin Calcium 40 Mg Tablet 40 Mg PO HS 04/09/15 Reported Comments CXR 02/20 Impression: 1. Support device positioning as above. 2. Persistent and not significantly changed diffuse airspace infiltrates. Impression . IMPRESSION: 1. Acute hypoxic respiratory failure secondary to COVID-19 viral pneumonia/acute lung injury and early acute respiratory distress syndrome. S/P intubation 02/17/21 2. Nonsmoker. 3. Abnormal chest x-ray consistent with COVID-19 viral pneumonia. 4. Diabetic ketoacidosis as initial presentation, currently better.--resolved 5. Underlying obesity contributing to hypoxia as well. Plan . Updated 02/22/2021 Oxygen requirement slowly improving. Currently on 65% FiO2 and 7 of PEEP. We will follow the weaning protocol. Follow chest x-ray/ABG as needed--make chagnes as needed Continue IV steroids will need full 10 days course started 02/15/2021 Continue empiric antibiotics S/P remdesivir for full course Continue tube feeding for nutritional support DVT/GI prophylaxis: Lovenox Discussed with RN and RT Critical Care time 30 minutes Updated 02/21/2021 Continue current vent support 18/450/85%/PEEP of 8 Follow chest x-ray/ABG as needed--make chagnes as needed Continue IV steroids will need full 10 days course started 02/15/2021 Continue empiric antibiotics S/P remdesivir for full course Continue tube feeding for nutritional support DVT/GI prophylaxis: Lovenox Discussed with RN and RT Critical Care time 30 minutes Updated 02/20/2021 Continue current vent support 18/450/85%/PEEP of 8 Follow chest x-ray/ABG as needed--make chagnes as needed Continue IV steroids will need full 10 days course started 02/15/2021 Continue empiric antibiotics S/P remdesivir for full course Continue tube feeding for nutritional support DVT/GI prophylaxis: Lovenox Discussed with RN and RT Critical Care time 30 minutes Updated 02/19/2021 Continue current vent support 18/450/90%/PEEP of 8 Follow chest x-ray/ABG as needed--reduce FiO2 to 85 Continue IV steroids will need full 10 days course started 02/15/2021 Continue empiric antibiotics Continue remdesivir for full course Diabetes per PCP Continue tube feeding for nutritional support DVT/GI prophylaxis: Lovenox Discussed with RN and RT Critical Care time 30 minutes Updated 02/18/2021 Continue current vent support 18/450/100%/PEEP of 8 Follow chest x-ray/ABG as needed--reduce FiO2 to 90% Continue IV steroids will need full 10 days course started 02/15/2021 Continue empiric antibiotics with Rocephin and azithromycin Continue remdesivir for full course Diabetes per PCP Continue tube feeding for nutritional support DVT/GI prophylaxis: Lovenox Discussed with RN and RT Critical Care time 30 minutes Updated 02/17/2021 Continue current supplemental oxygen with BiPAP at 100%, closely monitoring the need for intubation IPAP settings reviewed, make changes as necessary Follow chest x-ray/ABG as needed Continue IV steroids will need full 10 days course started 02/15/2021 Continue empiric antibiotics with Rocephin and azithromycin Continue remdesivir for full course Diabetes per PCP HTN per PCP Consulted dietitian for nutritional support DVT/GI prophylaxis: Lovenox Discussed with RN and RT Addendum;. Patient reevaluated again. She is unable to tolerate BiPAP at 100% FiO2. We spoke to her about the need for intubation and she agreed to it. She is now intubated on assist control mode. She will be sedated. Will obtain chest x-ray post intubation and follow ABGs and make necessary adjustments. I have called patient's and informed about her condition Critical care time 30 minutes EMILY POSADA MD Feb 22, 2021 09:10
[2021-02-22] MEDS: INSULIN GLARGINE SYRINGE. SQ SCH ×2 (10:32→20:43)
--- NOTE | 2021-02-22 10:33 | RAD ---
Chest AP portable at 0906: Reason for examination: Ventilator patient. Respiratory failure. Follow-up infiltrates. Comparison is made to previous study dated 02/20/2021. Right PICC line, endotracheal tube and NG tube remain present. Heart and mediastinum are unchanged. T here continues be some elevation of the right hemidiaphragm. Lung mercer continue show diffuse bilate ral pulmonary opacities without interval improvement. No gross pleural effusions are seen. No acute b terrell abnormalities are seen. IMPRESSION: Diffuse bilateral pulmonary opacities with no interval improvement. Electronically signed by: Lennie Saxena MD (02/22/2021 10:31 AM) [id number]
--- NOTE | 2021-02-22 11:49 | PDOC ---
[facility] PROGRESS NOTE Date of Service DOS: DATE: 02/22/21 TIME: 11:48 Chief Complaint Chief Complaint COVID-19 positive infection Tractable nausea vomiting DKA Anion gap metabolic acidosis Acute electrolyte derangementhyponatremia, hypochloremia due to volume depletion Hyperglycemia uncontrolled BOB due to vasomotor nephropathy Erythrocytosis Reglan for diabetic gastroparesis Continue Covid measures Patient intubated Pulmonary following SCD for DVT prophylaxis Protonix GI prophylaxis ADA diet Full code Discussed with RN and SW Disposition inpatient management as above Surrogate decision maker is Brian Whitmore History of Present Illness History of Present Illness 46 year old female who presents with nausea/vomiting since 7 AM yesterday morning. Patient states that her recently tested positive for Covid. She states that he "coughed in my face because he thought it was funny." She reports subjective fevers and chills and nausea/vomiting. Denies sore throat, cough, shortness of breath. No chest pain. Does have some upper abdominal discomfort after vomiting, that she attributes to muscular strain. She is not vaccinated for Covid. 02/08/2021 No acute events overnight. Patient seen and examined bedside and resting comfortably. Continues to complain of nausea not able to tolerate any diet at this time. Saturating 98% on room air. Patient's chart, labs, images were reviewed and discussed with RN 02/09/2021: Afebrile, currently breathing on room air. Still with complaints of nausea and vomiting x3 today. States that she has history of similar symptoms that have been mildly improved with IV Dilaudid. Discussed with patient that I will provide IV Dilaudid to help with her nausea, but she will not discharged on this medication. Will obtain 6-minute walk to evaluate oxygen requirements. Upon discharge, I recommend self quarantine for 10 days for resolution of her symptoms. Discussed with patient that she will discharge tomorrow. 02/10/2021: Patient febrile today with T-max 102.2 F. She still admits to nausea, denies any further vomiting. We will continue to provide supportive care and monitor for any recurrent fevers overnight. Patient continues to improve may discharge tomorrow to continue self-isolation. 02/11/2021: Febrile overnight, T-max 102.3 F. She did become hypoxic overnight, currently breathing on 4 L nasal cannula. Also admits to associated vomiting or diarrhea overnight. Discussed with RN, will initiate remdesivir and closely monitor LFTs. We will also treat with IV Decadron, and prophylactic anti biotics. 02/12/2021: Low-grade fever overnight, T-max 99.7. Currently breathing on room air. Will discontinue remdesivir, steroids, and antibiotics; will observe overnight. Still with complaints of vomiting x1 and diarrhea. We will continue to provide supportive care and hope to discharge in the next day or so. 02/13/2021: Afebrile. Still complains of intermittent diarrhea. At the time of my evaluation she was breathing on 6 L nasal cannula; this is somewhat misleading as patient states that she did not feel short of breath but was placed on 6 L by nursing staff overnight. Will have RN reassess her oxygen requirements as I did anticipate discharging today. 02/14/2021: Afebrile, currently breathing on 8 L nasal cannula. There has been some misleading documentation, chart oxygen this patient is requiring. Discussed with RN, will resume remdesivir to complete total of 5 days. Continue to monitor LFTs. Will add steroids, Rocephin, and azithromycin. Continue supportive care. 02/15/2021: Afebrile. Became much more hypoxic overnight, requiring BiPAP. At the time of my evaluation she is still breathing on BiPAP. Consultation was placed to pulmonology. Had discussion with Dr. Myrick about initiating Tocilizumab, but currently there is 1 more person in the ER that would be more deserving. When stocks are replenished, she will be first inline to receive this medication. She is also first-line to be transferred down to ICU. Critical care time 30 minutes spent reviewing labs, reviewing imaging, discussion with Dr. Myrick, and discussion with RN. 02/16/2021 No acute events overnight. Patient becoming more hypoxic saturating 94% and requiring BiPAP. Patient will be transferred to the ICU at this time. For worsening clinical status. Discussed with pulmonary. Patient's chart, labs, images were reviewed and discussed with RN 02/17/21 Transferred to ICU yesterday afternoon. Seen and examined at bedside she remains on 100% FiO2 on BiPAP. Respirations do appear somewhat labored. Suspect intubation may be impending. We will closely monitor. Increase lisinopril to 20 today. Plan of care discussed with bedside RN. 02/18/21 Patient required intubation yesterday afternoon. Saw and examined this morning. She is intubated and sedated. Increase insulin today. Covid protocol ordered. Wean as tolerated. Plan of care discussed with bedside nurse. 02/19/21 Bedside. She remains intubated and sedated. Continue Covid protocol. Wean oxygen sedation as tolerated. Pulmonary following. Plan of care discussed with bedside RN. 02/20/21 Patient seen and examined at bedside. She remains intubated and sedated. No major clinical changes. Continue current treatment. Pulmonary following. Plan of care discussed with bedside RN. 02/21/21 Patient seen and examined at bedside. Remains intubated and sedated date and admission clinical changes. Increase free water flushes today due to hypernatremia. Plan of care discussed with bedside nurse. 02/22/21 Patient seen and examined at bedside. O2 requirement actually improving, although remains intubated. Possible SBT in the coming days. Hypernatremia improving. Plan of care discussed bedside RN. Vitals/I&O Vitals/I&O: Vital Signs Date Time Temp Pulse Resp B/P (MAP) Pulse Ox O2 Delivery O2 Flow Rate FiO2 02/22/21 09:17 97 Ventilator 02/22/21 08:30 54 153/76 02/22/21 07:00 18 02/22/21 04:00 98.7 98.7 02/21/21 15:52 15.0 I & O 02/21/21 02/21/21 02/22/21 15:00 23:00 07:00 Intake Total 300 ml 1293.92 ml 400 ml Output Total 465 ml 305 ml 515 ml Balance -165 ml 988.92 ml -115 ml Physical Exam General: Other (Intubated and sedated) Heart: Regular rate Abdomen: Normal bowel sounds Extremities: No clubbing, No edema Skin: No rashes, No significant lesion Labs Labs: Laboratory Tests Test 02/21/21 17:38 02/22/21 00:01 02/22/21 05:10 02/22/21 08:00 Glucose (Fingerstick) 186 mg/dL (70-99) 174 mg/dL (70-99) White Blood Count 13.8 x10^3/uL (4.0-11.0) Red Blood Count 3.58 x10^6/uL (3.50-5.40) Hemoglobin 11.0 g/dL (12.0-15.5) Hematocrit 32.1 % (36.0-47.0) Mean Corpuscular Volume 90 fL (79-100) Mean Corpuscular Hemoglobin 31 pg (25-35) Mean Corpuscular Hemoglobin Concent 34 g/dL (31-37) Red Cell Distribution Width 13.5 % (11.5-14.5) Platelet Count 215 x10^3/uL (140-400) Sodium Level 145 mmol/L (136-145) Potassium Level 4.8 mmol/L (3.5-5.1) Chloride Level 106 mmol/L (98-107) Carbon Dioxide Level 37 mmol/L (21-32) Anion Gap 2 (6-14) Blood Urea Nitrogen 32 mg/dL (7-20) Creatinine 0.9 mg/dL (0.6-1.0) Estimated GFR (Cockcroft-Gault) 67.7 BUN/Creatinine Ratio 36 (6-20) Glucose Level 240 mg/dL (70-99) Calcium Level 7.4 mg/dL (8.5-10.1) Total Bilirubin 0.4 mg/dL (0.2-1.0) Aspartate Amino Transf (AST/SGOT) 49 U/L (15-37) Alanine Aminotransferase (ALT/SGPT) 31 U/L (14-59) Alkaline Phosphatase 86 U/L (46-116) Total Protein 5.2 g/dL (6.4-8.2) Albumin 1.4 g/dL (3.4-5.0) Albumin/Globulin Ratio 0.4 (1.0-1.7) O2 Saturation 96 % (92-99) Arterial Blood pH 7.43 (7.35-7.45) Arterial Blood pCO2 at Patient Temp 52 mmHg (35-46) Arterial Blood pO2 at Patient Temp 90 mmHg (75-108) Arterial Blood HCO3 34 mmol/L (21-28) Arterial Blood Base Excess 8 mmol/L (-3-3) FiO2 75/vent Assessment and Plan Assessmemt and Plan Problems Medical Problems: (1) Ketoacidosis Status: Acute Comment Review of Relevant I have reviewed the following items mazin (where applicable) has been applied. Justifications for Admission Other Justification LEO DELGADO MD Feb 22, 2021 11:49
[2021-02-22] MEDS: cefTRIAXone IV Push 1 GM VIAL. IVP SCH (12:42)
[2021-02-22] MEDS: ATORVASTATIN CALCIUM 40 MG TABLET. PO SCH (20:43)
[2021-02-23] VITALS (24 sets, daily range): BP systolic 137–179; BP diastolic 60–111
[2021-02-23] MEDS: INSULIN LISPRO 300 UNITS/3 ML VIAL. SQ SCH ×10 (01:10→23:43)
[2021-02-23] MEDS: MIDAZOLAM 100mg/100ml NS BAG 100 ML IV PRN ×2 (04:09→14:53)
[2021-02-23] MEDS: PROPOFOL 100 ML IV PRN ×3 (06:30→20:50)
--- NOTE | 2021-02-23 07:36 | PDOC ---
[facility] PROGRESS NOTE Date of Service DOS: DATE: 02/23/21 TIME: 07:32 Chief Complaint Chief Complaint COVID-19 positive infection Tractable nausea vomiting DKA Anion gap metabolic acidosis Acute electrolyte derangementhyponatremia, hypochloremia due to volume depletion Hyperglycemia uncontrolled BOB due to vasomotor nephropathy Erythrocytosis Reglan for diabetic gastroparesis Continue Covid measures Patient intubated Pulmonary following SCD for DVT prophylaxis Protonix GI prophylaxis ADA diet Full code Discussed with RN and SW Disposition inpatient management as above Surrogate decision maker is Brian Whitmore History of Present Illness History of Present Illness 46 year old female who presents with nausea/vomiting since 7 AM yesterday morning. Patient states that her recently tested positive for Covid. She states that he "coughed in my face because he thought it was funny." She reports subjective fevers and chills and nausea/vomiting. Denies sore throat, cough, shortness of breath. No chest pain. Does have some upper abdominal discomfort after vomiting, that she attributes to muscular strain. She is not vaccinated for Covid. 02/08/2021 No acute events overnight. Patient seen and examined bedside and resting comfortably. Continues to complain of nausea not able to tolerate any diet at this time. Saturating 98% on room air. Patient's chart, labs, images were reviewed and discussed with RN 02/09/2021: Afebrile, currently breathing on room air. Still with complaints of nausea and vomiting x3 today. States that she has history of similar symptoms that have been mildly improved with IV Dilaudid. Discussed with patient that I will provide IV Dilaudid to help with her nausea, but she will not discharged on this medication. Will obtain 6-minute walk to evaluate oxygen requirements. Upon discharge, I recommend self quarantine for 10 days for resolution of her symptoms. Discussed with patient that she will discharge tomorrow. 02/10/2021: Patient febrile today with T-max 102.2 F. She still admits to nausea, denies any further vomiting. We will continue to provide supportive care and monitor for any recurrent fevers overnight. Patient continues to improve may discharge tomorrow to continue self-isolation. 02/11/2021: Febrile overnight, T-max 102.3 F. She did become hypoxic overnight, currently breathing on 4 L nasal cannula. Also admits to associated vomiting or diarrhea overnight. Discussed with RN, will initiate remdesivir and closely monitor LFTs. We will also treat with IV Decadron, and prophylactic anti biotics. 02/12/2021: Low-grade fever overnight, T-max 99.7. Currently breathing on room air. Will discontinue remdesivir, steroids, and antibiotics; will observe overnight. Still with complaints of vomiting x1 and diarrhea. We will continue to provide supportive care and hope to discharge in the next day or so. 02/13/2021: Afebrile. Still complains of intermittent diarrhea. At the time of my evaluation she was breathing on 6 L nasal cannula; this is somewhat misleading as patient states that she did not feel short of breath but was placed on 6 L by nursing staff overnight. Will have RN reassess her oxygen requirements as I did anticipate discharging today. 02/14/2021: Afebrile, currently breathing on 8 L nasal cannula. There has been some misleading documentation, chart oxygen this patient is requiring. Discussed with RN, will resume remdesivir to complete total of 5 days. Continue to monitor LFTs. Will add steroids, Rocephin, and azithromycin. Continue supportive care. 02/15/2021: Afebrile. Became much more hypoxic overnight, requiring BiPAP. At the time of my evaluation she is still breathing on BiPAP. Consultation was placed to pulmonology. Had discussion with Dr. Myrick about initiating Tocilizumab, but currently there is 1 more person in the ER that would be more deserving. When stocks are replenished, she will be first inline to receive this medication. She is also first-line to be transferred down to ICU. Critical care time 30 minutes spent reviewing labs, reviewing imaging, discussion with Dr. Myrick, and discussion with RN. 02/16/2021 No acute events overnight. Patient becoming more hypoxic saturating 94% and requiring BiPAP. Patient will be transferred to the ICU at this time. For worsening clinical status. Discussed with pulmonary. Patient's chart, labs, images were reviewed and discussed with RN 02/17/21 Transferred to ICU yesterday afternoon. Seen and examined at bedside she remains on 100% FiO2 on BiPAP. Respirations do appear somewhat labored. Suspect intubation may be impending. We will closely monitor. Increase lisinopril to 20 today. Plan of care discussed with bedside RN. 02/18/21 Patient required intubation yesterday afternoon. Saw and examined this morning. She is intubated and sedated. Increase insulin today. Covid protocol ordered. Wean as tolerated. Plan of care discussed with bedside nurse. 02/19/21 Bedside. She remains intubated and sedated. Continue Covid protocol. Wean oxygen sedation as tolerated. Pulmonary following. Plan of care discussed with bedside RN. 02/20/21 Patient seen and examined at bedside. She remains intubated and sedated. No major clinical changes. Continue current treatment. Pulmonary following. Plan of care discussed with bedside RN. 02/21/21 Patient seen and examined at bedside. Remains intubated and sedated date and admission clinical changes. Increase free water flushes today due to hypernatremia. Plan of care discussed with bedside nurse. 02/22/21 Patient seen and examined at bedside. O2 requirement actually improving, although remains intubated. Possible SBT in the coming days. Hypernatremia improving. Plan of care discussed bedside RN. 02/23/2021: Patient remains in ICU on ventilator with FiO2 100%, PEEP 7. Repeat chest x-ray yesterday showed diffuse bilateral pulmonary opacities with no interval improvement. Will discontinue Rocephin and initiate Zosyn. We will continue IV steroids for a full 10-day course (to be completed 02/25/2021). Completed remdesivir. Continue supportive care. Critical care time 30 minutes spent reviewing charts, reviewing imaging, reviewing labs, discussion with RN. Vitals/I&O Vitals/I&O: Vital Signs Date Time Temp Pulse Resp B/P (MAP) Pulse Ox O2 Delivery O2 Flow Rate FiO2 02/23/21 06:06 100 Ventilator 02/23/21 06:00 48 18 179/75 (109) 02/23/21 04:00 98.6 98.6 I & O 02/22/21 02/22/21 02/23/21 15:00 23:00 07:00 Intake Total 400 ml 1581.34 ml Output Total 460 ml 540 ml Balance -60 ml 1041.34 ml Physical Exam General: Other (Intubated and sedated) Heart: Regular rate Abdomen: Normal bowel sounds Extremities: No clubbing, No edema Skin: No rashes, No significant lesion Labs Labs: Laboratory Tests Test 02/22/21 08:00 02/22/21 18:43 02/23/21 00:58 02/23/21 06:37 O2 Saturation 96 % (92-99) Arterial Blood pH 7.43 (7.35-7.45) Arterial Blood pCO2 at Patient Temp 52 mmHg (35-46) Arterial Blood pO2 at Patient Temp 90 mmHg (75-108) Arterial Blood HCO3 34 mmol/L (21-28) Arterial Blood Base Excess 8 mmol/L (-3-3) FiO2 75/vent Glucose (Fingerstick) 227 mg/dL (70-99) 228 mg/dL (70-99) 215 mg/dL (70-99) Assessment and Plan Assessmemt and Plan Problems Medical Problems: (1) Ketoacidosis Status: Acute Comment Review of Relevant I have reviewed the following items mazin (where applicable) has been applied. Justifications for Admission Other Justification SANDI ALCARAZ MD Feb 23, 2021 07:36
[2021-02-23] MEDS ORDERED: PIP/TAZO PER PHARMACY MC PRN (07:45)
[2021-02-23] MEDS: PIPERACILLIN/TAZOBACTAM 4.5 GM in IV NORMAL SALINE 100ML 100 ML IV SCH ×4 (08:06→23:27)
[2021-02-23] MEDS: DEXAMETHASONE SOD PHOS 4 MG/ML VIAL IVP SCH (08:06)
[2021-02-23] MEDS: FAMOTIDINE 20 MG/2 ML VIAL IVP SCH ×2 (08:06→20:50)
[2021-02-23] MEDS: CARVEDILOL 6.25 MG TABLET. PO SCH (08:06)
[2021-02-23] MEDS: LISINOPRIL 20 MG TABLET PO SCH (08:07)
[2021-02-23] MEDS: ENOXAPARIN 40 MG/0.4 ML SYRINGE. SQ SCH ×2 (08:19→20:50)
--- NOTE | 2021-02-23 08:56 | PDOC ---
PULMONARY PROGRESS NOTES DATE: 02/23/21 TIME: 08:54 Subjective Patient with remains on ventilatory support, intubated 02/17/2021, improving oxygenation on 50% and PEEP 7 Sedated No overnight concerns from nursing Vitals Vital Signs Date Time Temp Pulse Resp B/P (MAP) Pulse Ox O2 Delivery O2 Flow Rate FiO2 02/23/21 08:07 51 157/79 02/23/21 08:00 18 99 Ventilator 02/23/21 04:00 98.6 98.6 Comments Visual exam done due to COVID-19. intubated No paradoxical breathing. No skin rash or leg edema. Labs Laboratory Tests Test 02/21/21 11:37 02/21/21 17:38 02/22/21 00:01 02/22/21 05:10 Glucose (Fingerstick) 150 mg/dL (70-99) 186 mg/dL (70-99) 174 mg/dL (70-99) White Blood Count 13.8 x10^3/uL (4.0-11.0) Red Blood Count 3.58 x10^6/uL (3.50-5.40) Hemoglobin 11.0 g/dL (12.0-15.5) Hematocrit 32.1 % (36.0-47.0) Mean Corpuscular Volume 90 fL (79-100) Mean Corpuscular Hemoglobin 31 pg (25-35) Mean Corpuscular Hemoglobin Concent 34 g/dL (31-37) Red Cell Distribution Width 13.5 % (11.5-14.5) Platelet Count 215 x10^3/uL (140-400) Sodium Level 145 mmol/L (136-145) Potassium Level 4.8 mmol/L (3.5-5.1) Chloride Level 106 mmol/L (98-107) Carbon Dioxide Level 37 mmol/L (21-32) Anion Gap 2 (6-14) Blood Urea Nitrogen 32 mg/dL (7-20) Creatinine 0.9 mg/dL (0.6-1.0) Estimated GFR (Cockcroft-Gault) 67.7 BUN/Creatinine Ratio 36 (6-20) Glucose Level 240 mg/dL (70-99) Calcium Level 7.4 mg/dL (8.5-10.1) Total Bilirubin 0.4 mg/dL (0.2-1.0) Aspartate Amino Transf (AST/SGOT) 49 U/L (15-37) Alanine Aminotransferase (ALT/SGPT) 31 U/L (14-59) Alkaline Phosphatase 86 U/L (46-116) Total Protein 5.2 g/dL (6.4-8.2) Albumin 1.4 g/dL (3.4-5.0) Albumin/Globulin Ratio 0.4 (1.0-1.7) Test 02/22/21 08:00 02/22/21 18:43 02/23/21 00:58 02/23/21 06:00 O2 Saturation 96 % (92-99) Arterial Blood pH 7.43 (7.35-7.45) Arterial Blood pCO2 at Patient Temp 52 mmHg (35-46) Arterial Blood pO2 at Patient Temp 90 mmHg (75-108) Arterial Blood HCO3 34 mmol/L (21-28) Arterial Blood Base Excess 8 mmol/L (-3-3) FiO2 75/vent Glucose (Fingerstick) 227 mg/dL (70-99) 228 mg/dL (70-99) Albumin 1.4 g/dL (3.4-5.0) Test 02/23/21 06:37 Glucose (Fingerstick) 215 mg/dL (70-99) Laboratory Tests Test 02/22/21 18:43 02/23/21 00:58 02/23/21 06:00 02/23/21 06:37 Glucose (Fingerstick) 227 mg/dL (70-99) 228 mg/dL (70-99) 215 mg/dL (70-99) Albumin 1.4 g/dL (3.4-5.0) Medications Active Scripts Medications Dose Route/Sig Max Daily Dose Days Date Category Novolog Flexpen (Insulin Aspart) 100 Unit/1 Ml Insuln.pen 3-7 SQ TIDACHC 02/07/21 Reported Lisinopril 5 Mg Tablet 1 Tab PO DAILY 02/07/21 Reported Lantus Solostar (Insulin Glargine,Hum.rec.anlog) 100 Unit/1 Ml Insuln.pen 5 Unit SQ QHS 04/09/15 Reported Atorvastatin Calcium 40 Mg Tablet 40 Mg PO HS 04/09/15 Reported Comments CXR 02/20 Impression: 1. Support device positioning as above. 2. Persistent and not significantly changed diffuse airspace infiltrates. Impression . IMPRESSION: 1. Acute hypoxic respiratory failure secondary to COVID-19 viral pneumonia/acute lung injury and early acute respiratory distress syndrome. S/P intubation 02/17/21 2. Nonsmoker. 3. Abnormal chest x-ray consistent with COVID-19 viral pneumonia. 4. Diabetic ketoacidosis as initial presentation, currently better.--resolved 5. Underlying obesity contributing to hypoxia as well. Plan . Updated 02/23/2021 Continue current ventilatory support 18/450/50/7, patient continues to slowly clinically improve Follow chest x-ray/ABG as needed-reduce FiO2 to 45% and reduce PEEP to 6 Continue IV steroids will need full 10 days course started 02/15/2021 Continue empiric antibiotics, currently on Zosyn Hypertension Per PCP S/P remdesivir for full course Continue tube feeding for nutritional support DVT/GI prophylaxis: Lovenox Discussed with RN and RT Critical Care time 30 minutes Updated 02/22/2021 Oxygen requirement slowly improving. Currently on 65% FiO2 and 7 of PEEP. We will follow the weaning protocol. Follow chest x-ray/ABG as needed--make chagnes as needed Continue IV steroids will need full 10 days course started 02/15/2021 Continue empiric antibiotics S/P remdesivir for full course Continue tube feeding for nutritional support DVT/GI prophylaxis: Lovenox Discussed with RN and RT Critical Care time 30 minutes EMILY POSADA MD Feb 23, 2021 08:56
[2021-02-23 09:42] LABS: BASE EXCESS ABG 8 mmol/L (-3-3); HCO3 ABG 33 mmol/L (21-28); PCO2 ABG 48 mmHg (35-46); PO2 ABG 61 mmHg (75-108); SAT O2 ABG 90 % (92-99)
[2021-02-23 09:44] LABS: FIO2 ABG 50
[2021-02-23] MEDS: INSULIN GLARGINE SYRINGE. SQ SCH ×2 (10:16→20:50)
--- NOTE | 2021-02-23 10:59 | NUR ---
SS following up with discharge planning. SS reviewed pt chart and discussed with pt RN. Pt is currently on the vent at 50%. COVID19 positive. Pt on IV Zosyn and IV Decadron. Pt on Versed and Fentanyl. Self pay. Med Assist following. Not stable. SS will continue to follow for discharge planning.
[2021-02-23] MEDS: DOCUSATE 100 MG/10 ML SOLUTION. PO SCH ×2 (11:41→20:50)
[2021-02-23] MEDS: ATORVASTATIN CALCIUM 40 MG TABLET. PO SCH (20:50)
[2021-02-24] VITALS (24 sets, daily range): BP systolic 113–185; BP diastolic 56–91
[2021-02-24] MEDS: MIDAZOLAM 100mg/100ml NS BAG 100 ML IV PRN ×2 (02:54→10:38)
[2021-02-24] MEDS: INSULIN LISPRO 300 UNITS/3 ML VIAL. SQ SCH ×6 (06:00→17:34)
[2021-02-24] MEDS: PIPERACILLIN/TAZOBACTAM 4.5 GM in IV NORMAL SALINE 100ML 100 ML IV SCH ×3 (06:04→17:33)
[2021-02-24 06:24] LABS: BASO % 0 % (0-3); EOS # 0.1 x10^3/uL (0.0-0.7); EOS % 1 % (0-3); HEMATOCRIT 34.3 % (36.0-47.0); HEMOGLOBIN 11.5 g/dL (12.0-15.5); LYMPH # 1.4 x10^3/uL (1.0-4.8); LYMPH % 13 % (24-48); MEAN CORPUSCULAR HEMOGLOBIN 30 pg (25-35); MEAN CORPUSCULAR HGB CONC 34 g/dL (31-37); MEAN CORPUSCULAR VOLUME 88 fL (79-100); MONO # 0.9 x10^3/uL (0.0-1.1); MONO % 8 % (0-9); NEUT # 8.6 x10^3/uL (1.8-7.7); NEUT % 78 % (31-73); PLATELET COUNT 254 x10^3/uL (140-400); RED BLOOD COUNT 3.89 x10^6/uL (3.50-5.40); RED CELL DISTRIBUTION WIDTH 13.1 % (11.5-14.5); WHITE BLOOD COUNT 11.1 x10^3/uL (4.0-11.0)
[2021-02-24 06:37] LABS: BLOOD UREA NITROGEN 30 mg/dL (7-20); CALCIUM 8.6 mg/dL (8.5-10.1); CARBON DIOXIDE 37 mmol/L (21-32); CHLORIDE 103 mmol/L (98-107); CREATININE 0.9 mg/dL (0.6-1.0); GFR 67.7; GLUCOSE 162 mg/dL (70-99); POTASSIUM 4.5 mmol/L (3.5-5.1); SODIUM 139 mmol/L (136-145)
[2021-02-24] MEDS: DEXAMETHASONE SOD PHOS 4 MG/ML VIAL IVP SCH (08:12)
[2021-02-24] MEDS: LISINOPRIL 20 MG TABLET PO SCH (08:13)
[2021-02-24] MEDS: FAMOTIDINE 20 MG/2 ML VIAL IVP SCH ×2 (08:13→20:30)
[2021-02-24] MEDS: DOCUSATE 100 MG/10 ML SOLUTION. PO SCH ×2 (08:13→20:30)
[2021-02-24] MEDS: ENOXAPARIN 40 MG/0.4 ML SYRINGE. SQ SCH ×2 (08:14→20:30)
[2021-02-24] MEDS: PROPOFOL 100 ML IV PRN ×2 (08:14→17:33)
[2021-02-24 08:36] LABS: BASE EXCESS ABG 10 mmol/L (-3-3); HCO3 ABG 35 mmol/L (21-28); PCO2 ABG 47 mmHg (35-46); PO2 ABG 56 mmHg (75-108); SAT O2 ABG 88 % (92-99)
[2021-02-24] MEDS: INSULIN GLARGINE SYRINGE. SQ SCH ×2 (08:46→20:33)
--- NOTE | 2021-02-24 08:52 | PDOC ---
[facility] PROGRESS NOTE Date of Service DOS: DATE: 02/24/21 TIME: 08:42 Chief Complaint Chief Complaint COVID-19 positive infection Tractable nausea vomiting DKA Anion gap metabolic acidosis Acute electrolyte derangementhyponatremia, hypochloremia due to volume depletion Hyperglycemia uncontrolled BOB due to vasomotor nephropathy Erythrocytosis Reglan for diabetic gastroparesis Continue Covid measures Patient intubated Pulmonary following SCD for DVT prophylaxis Protonix GI prophylaxis ADA diet Full code Discussed with RN and SW Disposition inpatient management as above Surrogate decision maker is Brian Whitmore History of Present Illness History of Present Illness 46 year old female who presents with nausea/vomiting since 7 AM yesterday morning. Patient states that her recently tested positive for Covid. She states that he "coughed in my face because he thought it was funny." She reports subjective fevers and chills and nausea/vomiting. Denies sore throat, cough, shortness of breath. No chest pain. Does have some upper abdominal discomfort after vomiting, that she attributes to muscular strain. She is not vaccinated for Covid. 02/08/2021 No acute events overnight. Patient seen and examined bedside and resting comfortably. Continues to complain of nausea not able to tolerate any diet at this time. Saturating 98% on room air. Patient's chart, labs, images were reviewed and discussed with RN 02/09/2021: Afebrile, currently breathing on room air. Still with complaints of nausea and vomiting x3 today. States that she has history of similar symptoms that have been mildly improved with IV Dilaudid. Discussed with patient that I will provide IV Dilaudid to help with her nausea, but she will not discharged on this medication. Will obtain 6-minute walk to evaluate oxygen requirements. Upon discharge, I recommend self quarantine for 10 days for resolution of her symptoms. Discussed with patient that she will discharge tomorrow. 02/10/2021: Patient febrile today with T-max 102.2 F. She still admits to nausea, denies any further vomiting. We will continue to provide supportive care and monitor for any recurrent fevers overnight. Patient continues to improve may discharge tomorrow to continue self-isolation. 02/11/2021: Febrile overnight, T-max 102.3 F. She did become hypoxic overnight, currently breathing on 4 L nasal cannula. Also admits to associated vomiting or diarrhea overnight. Discussed with RN, will initiate remdesivir and closely monitor LFTs. We will also treat with IV Decadron, and prophylactic anti biotics. 02/12/2021: Low-grade fever overnight, T-max 99.7. Currently breathing on room air. Will discontinue remdesivir, steroids, and antibiotics; will observe overnight. Still with complaints of vomiting x1 and diarrhea. We will continue to provide supportive care and hope to discharge in the next day or so. 02/13/2021: Afebrile. Still complains of intermittent diarrhea. At the time of my evaluation she was breathing on 6 L nasal cannula; this is somewhat misleading as patient states that she did not feel short of breath but was placed on 6 L by nursing staff overnight. Will have RN reassess her oxygen requirements as I did anticipate discharging today. 02/14/2021: Afebrile, currently breathing on 8 L nasal cannula. There has been some misleading documentation, chart oxygen this patient is requiring. Discussed with RN, will resume remdesivir to complete total of 5 days. Continue to monitor LFTs. Will add steroids, Rocephin, and azithromycin. Continue supportive care. 02/15/2021: Afebrile. Became much more hypoxic overnight, requiring BiPAP. At the time of my evaluation she is still breathing on BiPAP. Consultation was placed to pulmonology. Had discussion with Dr. Myrick about initiating Tocilizumab, but currently there is 1 more person in the ER that would be more deserving. When stocks are replenished, she will be first inline to receive this medication. She is also first-line to be transferred down to ICU. Critical care time 30 minutes spent reviewing labs, reviewing imaging, discussion with Dr. Myrick, and discussion with RN. 02/16/2021 No acute events overnight. Patient becoming more hypoxic saturating 94% and requiring BiPAP. Patient will be transferred to the ICU at this time. For worsening clinical status. Discussed with pulmonary. Patient's chart, labs, images were reviewed and discussed with RN 02/17/21 Transferred to ICU yesterday afternoon. Seen and examined at bedside she remains on 100% FiO2 on BiPAP. Respirations do appear somewhat labored. Suspect intubation may be impending. We will closely monitor. Increase lisinopril to 20 today. Plan of care discussed with bedside RN. 02/18/21 Patient required intubation yesterday afternoon. Saw and examined this morning. She is intubated and sedated. Increase insulin today. Covid protocol ordered. Wean as tolerated. Plan of care discussed with bedside nurse. 02/19/21 Bedside. She remains intubated and sedated. Continue Covid protocol. Wean oxygen sedation as tolerated. Pulmonary following. Plan of care discussed with bedside RN. 02/20/21 Patient seen and examined at bedside. She remains intubated and sedated. No major clinical changes. Continue current treatment. Pulmonary following. Plan of care discussed with bedside RN. 02/21/21 Patient seen and examined at bedside. Remains intubated and sedated date and admission clinical changes. Increase free water flushes today due to hypernatremia. Plan of care discussed with bedside nurse. 02/22/21 Patient seen and examined at bedside. O2 requirement actually improving, although remains intubated. Possible SBT in the coming days. Hypernatremia improving. Plan of care discussed bedside RN. 02/23/2021: Patient remains in ICU on ventilator with FiO2 100%, PEEP 7. Repeat chest x-ray yesterday showed diffuse bilateral pulmonary opacities with no interval improvement. Will discontinue Rocephin and initiate Zosyn. We will continue IV steroids for a full 10-day course (to be completed 02/25/2021). Completed remdesivir. Continue supportive care. Critical care time 30 minutes spent reviewing charts, reviewing imaging, reviewing labs, discussion with RN. 02/24/2021: Afebrile. On vent with FiO2 40%, PEEP 6. Her Coreg has been held due to persistent bradycardia. No documented history of systolic heart failure or previous echocardiogram. Will need to obtain echocardiogram prior to discharge. Continue IV steroids and antibiotics. Vitals/I&O Vitals/I&O: Vital Signs Date Time Temp Pulse Resp B/P (MAP) Pulse Ox O2 Delivery O2 Flow Rate FiO2 02/24/21 08:19 96 Ventilator 02/24/21 08:13 51 119/61 02/24/21 08:00 98.4 18 98.4 02/24/21 03:24 15.0 I & O 02/23/21 02/23/21 02/24/21 15:00 23:00 07:00 Intake Total 600 ml 1502 ml 1800 ml Output Total 575 ml 825 ml 490 ml Balance 25 ml 677 ml 1310 ml Physical Exam General: Other (Intubated and sedated) Heart: Regular rate Abdomen: Normal bowel sounds Extremities: No clubbing, No edema Skin: No rashes, No significant lesion Labs Labs: Laboratory Tests Test 02/23/21 11:39 02/23/21 17:54 02/23/21 23:23 02/24/21 05:15 Glucose (Fingerstick) 183 mg/dL (70-99) 238 mg/dL (70-99) 211 mg/dL (70-99) White Blood Count 11.1 x10^3/uL (4.0-11.0) Red Blood Count 3.89 x10^6/uL (3.50-5.40) Hemoglobin 11.5 g/dL (12.0-15.5) Hematocrit 34.3 % (36.0-47.0) Mean Corpuscular Volume 88 fL (79-100) Mean Corpuscular Hemoglobin 30 pg (25-35) Mean Corpuscular Hemoglobin Concent 34 g/dL (31-37) Red Cell Distribution Width 13.1 % (11.5-14.5) Platelet Count 254 x10^3/uL (140-400) Neutrophils (%) (Auto) 78 % (31-73) Lymphocytes (%) (Auto) 13 % (24-48) Monocytes (%) (Auto) 8 % (0-9) Eosinophils (%) (Auto) 1 % (0-3) Basophils (%) (Auto) 0 % (0-3) Neutrophils # (Auto) 8.6 x10^3/uL (1.8-7.7) Lymphocytes # (Auto) 1.4 x10^3/uL (1.0-4.8) Monocytes # (Auto) 0.9 x10^3/uL (0.0-1.1) Eosinophils # (Auto) 0.1 x10^3/uL (0.0-0.7) Basophils # (Auto) 0.0 x10^3/uL (0.0-0.2) Sodium Level 139 mmol/L (136-145) Potassium Level 4.5 mmol/L (3.5-5.1) Chloride Level 103 mmol/L (98-107) Carbon Dioxide Level 37 mmol/L (21-32) Anion Gap (6-14) Blood Urea Nitrogen 30 mg/dL (7-20) Creatinine 0.9 mg/dL (0.6-1.0) Estimated GFR (Cockcroft-Gault) 67.7 Glucose Level 162 mg/dL (70-99) Calcium Level 8.6 mg/dL (8.5-10.1) Assessment and Plan Assessmemt and Plan Problems Medical Problems: (1) Ketoacidosis Status: Acute Comment Review of Relevant I have reviewed the following items mazin (where applicable) has been applied. Medications: Current Medications Medications (Trade) Dose Ordered Sig/Pepe Route PRN Reason Start Time Stop Time Status Last Admin Dose Admin Docusate Sodium (Colace Solution) 100 mg BID PO 02/23/21 12:00 02/24/21 08:13 Amlodipine Besylate (Norvasc) 5 mg DAILY NG 02/24/21 09:00 02/24/21 08:13 Justifications for Admission Other Justification SANDI ALCARAZ MD Feb 24, 2021 08:52
[2021-02-24 09:23] LABS: FIO2 ABG 40/VENT
--- NOTE | 2021-02-24 10:46 | PDOC ---
PULMONARY PROGRESS NOTES DATE: 02/24/21 TIME: 10:42 Subjective Patient with remains on ventilatory support, intubated 02/17/2021, improving oxygenation on 45% and PEEP 6 Sedated No overnight concerns from nursing Vitals Vital Signs Date Time Temp Pulse Resp B/P (MAP) Pulse Ox O2 Delivery O2 Flow Rate FiO2 02/24/21 10:00 53 18 136/64 (88) 98 Ventilator 02/24/21 08:00 98.4 98.4 02/24/21 03:24 15.0 Comments Visual exam done due to COVID-19. intubated No paradoxical breathing. No skin rash or leg edema. Labs Laboratory Tests Test 02/22/21 18:43 02/23/21 00:58 02/23/21 06:00 02/23/21 06:37 Glucose (Fingerstick) 227 mg/dL (70-99) 228 mg/dL (70-99) 215 mg/dL (70-99) Albumin 1.4 g/dL (3.4-5.0) Test 02/23/21 08:00 02/23/21 11:39 02/23/21 17:54 02/23/21 23:23 O2 Saturation 90 % (92-99) Arterial Blood pH 7.45 (7.35-7.45) Arterial Blood pCO2 at Patient Temp 48 mmHg (35-46) Arterial Blood pO2 at Patient Temp 61 mmHg (75-108) Arterial Blood HCO3 33 mmol/L (21-28) Arterial Blood Base Excess 8 mmol/L (-3-3) FiO2 50 Glucose (Fingerstick) 183 mg/dL (70-99) 238 mg/dL (70-99) 211 mg/dL (70-99) Test 02/24/21 05:15 02/24/21 08:00 White Blood Count 11.1 x10^3/uL (4.0-11.0) Red Blood Count 3.89 x10^6/uL (3.50-5.40) Hemoglobin 11.5 g/dL (12.0-15.5) Hematocrit 34.3 % (36.0-47.0) Mean Corpuscular Volume 88 fL (79-100) Mean Corpuscular Hemoglobin 30 pg (25-35) Mean Corpuscular Hemoglobin Concent 34 g/dL (31-37) Red Cell Distribution Width 13.1 % (11.5-14.5) Platelet Count 254 x10^3/uL (140-400) Neutrophils (%) (Auto) 78 % (31-73) Lymphocytes (%) (Auto) 13 % (24-48) Monocytes (%) (Auto) 8 % (0-9) Eosinophils (%) (Auto) 1 % (0-3) Basophils (%) (Auto) 0 % (0-3) Neutrophils # (Auto) 8.6 x10^3/uL (1.8-7.7) Lymphocytes # (Auto) 1.4 x10^3/uL (1.0-4.8) Monocytes # (Auto) 0.9 x10^3/uL (0.0-1.1) Eosinophils # (Auto) 0.1 x10^3/uL (0.0-0.7) Basophils # (Auto) 0.0 x10^3/uL (0.0-0.2) Sodium Level 139 mmol/L (136-145) Potassium Level 4.5 mmol/L (3.5-5.1) Chloride Level 103 mmol/L (98-107) Carbon Dioxide Level 37 mmol/L (21-32) Anion Gap (6-14) Blood Urea Nitrogen 30 mg/dL (7-20) Creatinine 0.9 mg/dL (0.6-1.0) Estimated GFR (Cockcroft-Gault) 67.7 Glucose Level 162 mg/dL (70-99) Calcium Level 8.6 mg/dL (8.5-10.1) O2 Saturation 88 % (92-99) Arterial Blood pH 7.49 (7.35-7.45) Arterial Blood pCO2 at Patient Temp 47 mmHg (35-46) Arterial Blood pO2 at Patient Temp 56 mmHg (75-108) Arterial Blood HCO3 35 mmol/L (21-28) Arterial Blood Base Excess 10 mmol/L (-3-3) FiO2 40/vent Laboratory Tests Test 02/23/21 11:39 02/23/21 17:54 02/23/21 23:23 02/24/21 05:15 Glucose (Fingerstick) 183 mg/dL (70-99) 238 mg/dL (70-99) 211 mg/dL (70-99) White Blood Count 11.1 x10^3/uL (4.0-11.0) Red Blood Count 3.89 x10^6/uL (3.50-5.40) Hemoglobin 11.5 g/dL (12.0-15.5) Hematocrit 34.3 % (36.0-47.0) Mean Corpuscular Volume 88 fL (79-100) Mean Corpuscular Hemoglobin 30 pg (25-35) Mean Corpuscular Hemoglobin Concent 34 g/dL (31-37) Red Cell Distribution Width 13.1 % (11.5-14.5) Platelet Count 254 x10^3/uL (140-400) Neutrophils (%) (Auto) 78 % (31-73) Lymphocytes (%) (Auto) 13 % (24-48) Monocytes (%) (Auto) 8 % (0-9) Eosinophils (%) (Auto) 1 % (0-3) Basophils (%) (Auto) 0 % (0-3) Neutrophils # (Auto) 8.6 x10^3/uL (1.8-7.7) Lymphocytes # (Auto) 1.4 x10^3/uL (1.0-4.8) Monocytes # (Auto) 0.9 x10^3/uL (0.0-1.1) Eosinophils # (Auto) 0.1 x10^3/uL (0.0-0.7) Basophils # (Auto) 0.0 x10^3/uL (0.0-0.2) Sodium Level 139 mmol/L (136-145) Potassium Level 4.5 mmol/L (3.5-5.1) Chloride Level 103 mmol/L (98-107) Carbon Dioxide Level 37 mmol/L (21-32) Anion Gap (6-14) Blood Urea Nitrogen 30 mg/dL (7-20) Creatinine 0.9 mg/dL (0.6-1.0) Estimated GFR (Cockcroft-Gault) 67.7 Glucose Level 162 mg/dL (70-99) Calcium Level 8.6 mg/dL (8.5-10.1) Test 02/24/21 08:00 O2 Saturation 88 % (92-99) Arterial Blood pH 7.49 (7.35-7.45) Arterial Blood pCO2 at Patient Temp 47 mmHg (35-46) Arterial Blood pO2 at Patient Temp 56 mmHg (75-108) Arterial Blood HCO3 35 mmol/L (21-28) Arterial Blood Base Excess 10 mmol/L (-3-3) FiO2 40/vent Medications Active Scripts Medications Dose Route/Sig Max Daily Dose Days Date Category Novolog Flexpen (Insulin Aspart) 100 Unit/1 Ml Insuln.pen 3-7 SQ TIDACHC 02/07/21 Reported Lisinopril 5 Mg Tablet 1 Tab PO DAILY 02/07/21 Reported Lantus Solostar (Insulin Glargine,Hum.rec.anlog) 100 Unit/1 Ml Insuln.pen 5 Unit SQ QHS 04/09/15 Reported Atorvastatin Calcium 40 Mg Tablet 40 Mg PO HS 04/09/15 Reported Comments CXR 02/20 Impression: 1. Support device positioning as above. 2. Persistent and not significantly changed diffuse airspace infiltrates. Impression . IMPRESSION: 1. Acute hypoxic respiratory failure secondary to COVID-19 viral pneumonia/acute lung injury and early acute respiratory distress syndrome. S/P intubation 02/17/21 2. Nonsmoker. 3. Abnormal chest x-ray consistent with COVID-19 viral pneumonia. 4. Diabetic ketoacidosis as initial presentation, currently better.--resolved 5. Underlying obesity contributing to hypoxia as well. Plan . Updated 02/24/2021 Continue current ventilatory support 18//40/6, patient continues to slowly clinically improve Follow chest x-ray/ABG as needed-increase fi02 45% slowly reduce sedation, to plan for weaning trials Continue IV steroids will need full 10 days course started 02/15/2021 Continue empiric antibiotics, currently on Zosyn Hypertension Per PCP S/P remdesivir for full course Continue tube feeding for nutritional support DVT/GI prophylaxis: Lovenox Discussed with RN and RT Critical Care time 30 minutes EMILY POSADA MD Feb 24, 2021 10:46
--- NOTE | 2021-02-24 15:33 | NUR ---
SS following up with discharge planning. SS reviewed pt chart and discussed with pt RN. Pt is currently on the vent at 40%. COVID19 positive. Pt on IV Zosyn and IV Decadron. Pt on Versed and Fentanyl. Self pay. Med Assist following. Not stable. SS will continue to follow for discharge planning.
[2021-02-24] MEDS: ATORVASTATIN CALCIUM 40 MG TABLET. PO SCH (20:30)
[2021-02-25] VITALS (22 sets, daily range): BP systolic 105–185; BP diastolic 53–87
[2021-02-25] MEDS: PIPERACILLIN/TAZOBACTAM 4.5 GM in IV NORMAL SALINE 100ML 100 ML IV SCH ×4 (00:06→17:10)
[2021-02-25] MEDS: INSULIN LISPRO 300 UNITS/3 ML VIAL. SQ SCH ×8 (00:06→17:36)
[2021-02-25] MEDS: MIDAZOLAM 100mg/100ml NS BAG 100 ML IV PRN ×2 (00:07→21:54)
[2021-02-25] MEDS: PROPOFOL 100 ML IV PRN ×5 (01:36→20:49)
--- NOTE | 2021-02-25 06:19 | RAD ---
AP chest x-ray HISTORY: Respiratory failure. COMPARISON: Chest x-ray 02/22/2021 FINDINGS: Endotracheal tube tip 2 cm above the maria elena. Nasogastric tube extends into the abdomen. Rig ht PICC line tip right atrium. Cardiomegaly stable. No pneumothorax. No pleural effusions. Slight imp roved aeration with some decreased density of the diffuse bilateral pulmonary interstitial and alveol ar infiltrates since the prior exam. IMPRESSION: Lines and tubes as described above. Slight improvement of the pulmonary infiltrates as de scribed above. No pneumothorax. Electronically signed by: Angelito Lim MD (02/25/2021 6:16 AM) [facility]
--- NOTE | 2021-02-25 06:43 | PDOC ---
PULMONARY PROGRESS NOTES DATE: 02/25/21 TIME: 06:41 Subjective Patient with remains on ventilatory support, intubated 02/17/2021, improving oxygenation on 45% and PEEP 6 Sedated Afebrile nursing reports she does not tolerate reduction of sedation secondary to increased peak pressures, and copious amounts of secretions from the ET tube Vitals Vital Signs Date Time Temp Pulse Resp B/P (MAP) Pulse Ox O2 Delivery O2 Flow Rate FiO2 02/25/21 06:00 50 20 139/70 (93) 99 Ventilator 02/25/21 04:00 98.6 98.6 02/25/21 02:07 15.0 Comments Visual exam done due to COVID-19. intubated No paradoxical breathing. No skin rash or leg edema. Labs Laboratory Tests Test 02/23/21 08:00 02/23/21 11:39 02/23/21 17:54 02/23/21 23:23 O2 Saturation 90 % (92-99) Arterial Blood pH 7.45 (7.35-7.45) Arterial Blood pCO2 at Patient Temp 48 mmHg (35-46) Arterial Blood pO2 at Patient Temp 61 mmHg (75-108) Arterial Blood HCO3 33 mmol/L (21-28) Arterial Blood Base Excess 8 mmol/L (-3-3) FiO2 50 Glucose (Fingerstick) 183 mg/dL (70-99) 238 mg/dL (70-99) 211 mg/dL (70-99) Test 02/24/21 05:15 02/24/21 08:00 02/24/21 10:59 02/24/21 17:12 White Blood Count 11.1 x10^3/uL (4.0-11.0) Red Blood Count 3.89 x10^6/uL (3.50-5.40) Hemoglobin 11.5 g/dL (12.0-15.5) Hematocrit 34.3 % (36.0-47.0) Mean Corpuscular Volume 88 fL (79-100) Mean Corpuscular Hemoglobin 30 pg (25-35) Mean Corpuscular Hemoglobin Concent 34 g/dL (31-37) Red Cell Distribution Width 13.1 % (11.5-14.5) Platelet Count 254 x10^3/uL (140-400) Neutrophils (%) (Auto) 78 % (31-73) Lymphocytes (%) (Auto) 13 % (24-48) Monocytes (%) (Auto) 8 % (0-9) Eosinophils (%) (Auto) 1 % (0-3) Basophils (%) (Auto) 0 % (0-3) Neutrophils # (Auto) 8.6 x10^3/uL (1.8-7.7) Lymphocytes # (Auto) 1.4 x10^3/uL (1.0-4.8) Monocytes # (Auto) 0.9 x10^3/uL (0.0-1.1) Eosinophils # (Auto) 0.1 x10^3/uL (0.0-0.7) Basophils # (Auto) 0.0 x10^3/uL (0.0-0.2) Sodium Level 139 mmol/L (136-145) Potassium Level 4.5 mmol/L (3.5-5.1) Chloride Level 103 mmol/L (98-107) Carbon Dioxide Level 37 mmol/L (21-32) Anion Gap (6-14) Blood Urea Nitrogen 30 mg/dL (7-20) Creatinine 0.9 mg/dL (0.6-1.0) Estimated GFR (Cockcroft-Gault) 67.7 Glucose Level 162 mg/dL (70-99) Calcium Level 8.6 mg/dL (8.5-10.1) O2 Saturation 88 % (92-99) Arterial Blood pH 7.49 (7.35-7.45) Arterial Blood pCO2 at Patient Temp 47 mmHg (35-46) Arterial Blood pO2 at Patient Temp 56 mmHg (75-108) Arterial Blood HCO3 35 mmol/L (21-28) Arterial Blood Base Excess 10 mmol/L (-3-3) FiO2 40/vent Glucose (Fingerstick) 98 mg/dL (70-99) 187 mg/dL (70-99) Test 02/25/21 00:04 02/25/21 06:20 Glucose (Fingerstick) 157 mg/dL (70-99) 102 mg/dL (70-99) Laboratory Tests Test 02/24/21 08:00 02/24/21 10:59 02/24/21 17:12 02/25/21 00:04 O2 Saturation 88 % (92-99) Arterial Blood pH 7.49 (7.35-7.45) Arterial Blood pCO2 at Patient Temp 47 mmHg (35-46) Arterial Blood pO2 at Patient Temp 56 mmHg (75-108) Arterial Blood HCO3 35 mmol/L (21-28) Arterial Blood Base Excess 10 mmol/L (-3-3) FiO2 40/vent Glucose (Fingerstick) 98 mg/dL (70-99) 187 mg/dL (70-99) 157 mg/dL (70-99) Test 02/25/21 06:20 Glucose (Fingerstick) 102 mg/dL (70-99) Medications Active Scripts Medications Dose Route/Sig Max Daily Dose Days Date Category Novolog Flexpen (Insulin Aspart) 100 Unit/1 Ml Insuln.pen 3-7 SQ TIDACHC 02/07/21 Reported Lisinopril 5 Mg Tablet 1 Tab PO DAILY 02/07/21 Reported Lantus Solostar (Insulin Glargine,Hum.rec.anlog) 100 Unit/1 Ml Insuln.pen 5 Unit SQ QHS 04/09/15 Reported Atorvastatin Calcium 40 Mg Tablet 40 Mg PO HS 04/09/15 Reported Comments Chest x-ray 02/25/2021 IMPRESSION: Lines and tubes as described above. Slight improvement of the pulmonary infiltrates as described above. No pneumothorax. Electronically signed by: Angelito Lim MD (02/25/2021 6:16 AM) [facility] 02/20 Impression: 1. Support device positioning as above. 2. Persistent and not significantly changed diffuse airspace infiltrates. Impression . IMPRESSION: 1. Acute hypoxic respiratory failure secondary to COVID-19 viral pneumonia/acute lung injury and early acute respiratory distress syndrome. S/P intubation 02/17/21,--slowly improving 2. Nonsmoker. 3. Abnormal chest x-ray consistent with COVID-19 viral pneumonia.--- Improving 4. Diabetic ketoacidosis as initial presentation, currently better.--resolved 5. Underlying obesity contributing to hypoxia as well. Plan . Updated 02/25/2021 Continue current ventilatory support //6, patient continues to slowly clinically improve Patient did not tolerate reduction in sedation secondary to increased peak airway pressures, nursing reports copious amounts of secretions, will attempt to reduce sedation again today in anticipation for pressure support trial Follow chest x-ray/ABG as needed Aggressive pulmonary hygiene DC steroids as the patient has completed a full 10-day course Continue empiric antibiotics, currently on Zosyn S/P remdesivir for full course Continue tube feeding for nutritional support DVT/GI prophylaxis: Lovenox Discussed with RN and RT Critical Care time 30 minutes EMILY POSADA MD Feb 25, 2021 06:43
[2021-02-25 07:52] LABS: BASO % 0 % (0-3); EOS # 0.2 x10^3/uL (0.0-0.7); EOS % 2 % (0-3); HEMATOCRIT 34.1 % (36.0-47.0); HEMOGLOBIN 11.3 g/dL (12.0-15.5); LYMPH # 2.4 x10^3/uL (1.0-4.8); LYMPH % 17 % (24-48); MEAN CORPUSCULAR HEMOGLOBIN 29 pg (25-35); MEAN CORPUSCULAR HGB CONC 33 g/dL (31-37); MEAN CORPUSCULAR VOLUME 89 fL (79-100); MONO # 1.1 x10^3/uL (0.0-1.1); MONO % 8 % (0-9); NEUT # 10.5 x10^3/uL (1.8-7.7); NEUT % 74 % (31-73); PLATELET COUNT 264 x10^3/uL (140-400); RED BLOOD COUNT 3.85 x10^6/uL (3.50-5.40); RED CELL DISTRIBUTION WIDTH 13.1 % (11.5-14.5); WHITE BLOOD COUNT 14.3 x10^3/uL (4.0-11.0)
--- NOTE | 2021-02-25 08:12 | PDOC ---
[employer] PROGRESS NOTE Date of Service DOS: DATE: 02/25/21 TIME: 08:08 Chief Complaint Chief Complaint COVID-19 positive infection Tractable nausea vomiting DKA Anion gap metabolic acidosis Acute electrolyte derangementhyponatremia, hypochloremia due to volume depletion Hyperglycemia uncontrolled BOB due to vasomotor nephropathy Erythrocytosis Reglan for diabetic gastroparesis Continue Covid measures Patient intubated Pulmonary following SCD for DVT prophylaxis Protonix GI prophylaxis ADA diet Full code Discussed with RN and SW Disposition inpatient management as above Surrogate decision maker is Brian Whitmore History of Present Illness History of Present Illness 46 year old female who presents with nausea/vomiting since 7 AM yesterday morning. Patient states that her recently tested positive for Covid. She states that he "coughed in my face because he thought it was funny." She reports subjective fevers and chills and nausea/vomiting. Denies sore throat, cough, shortness of breath. No chest pain. Does have some upper abdominal discomfort after vomiting, that she attributes to muscular strain. She is not vaccinated for Covid. 02/08/2021 No acute events overnight. Patient seen and examined bedside and resting comfortably. Continues to complain of nausea not able to tolerate any diet at this time. Saturating 98% on room air. Patient's chart, labs, images were reviewed and discussed with RN 02/09/2021: Afebrile, currently breathing on room air. Still with complaints of nausea and vomiting x3 today. States that she has history of similar symptoms that have been mildly improved with IV Dilaudid. Discussed with patient that I will provide IV Dilaudid to help with her nausea, but she will not discharged on this medication. Will obtain 6-minute walk to evaluate oxygen requirements. Upon discharge, I recommend self quarantine for 10 days for resolution of her symptoms. Discussed with patient that she will discharge tomorrow. 02/10/2021: Patient febrile today with T-max 102.2 F. She still admits to nausea, denies any further vomiting. We will continue to provide supportive care and monitor for any recurrent fevers overnight. Patient continues to improve may discharge tomorrow to continue self-isolation. 02/11/2021: Febrile overnight, T-max 102.3 F. She did become hypoxic overnight, currently breathing on 4 L nasal cannula. Also admits to associated vomiting or diarrhea overnight. Discussed with RN, will initiate remdesivir and closely monitor LFTs. We will also treat with IV Decadron, and prophylactic anti biotics. 02/12/2021: Low-grade fever overnight, T-max 99.7. Currently breathing on room air. Will discontinue remdesivir, steroids, and antibiotics; will observe overnight. Still with complaints of vomiting x1 and diarrhea. We will continue to provide supportive care and hope to discharge in the next day or so. 02/13/2021: Afebrile. Still complains of intermittent diarrhea. At the time of my evaluation she was breathing on 6 L nasal cannula; this is somewhat misleading as patient states that she did not feel short of breath but was placed on 6 L by nursing staff overnight. Will have RN reassess her oxygen requirements as I did anticipate discharging today. 02/14/2021: Afebrile, currently breathing on 8 L nasal cannula. There has been some misleading documentation, chart oxygen this patient is requiring. Discussed with RN, will resume remdesivir to complete total of 5 days. Continue to monitor LFTs. Will add steroids, Rocephin, and azithromycin. Continue supportive care. 02/15/2021: Afebrile. Became much more hypoxic overnight, requiring BiPAP. At the time of my evaluation she is still breathing on BiPAP. Consultation was placed to pulmonology. Had discussion with Dr. Myrick about initiating Tocilizumab, but currently there is 1 more person in the ER that would be more deserving. When stocks are replenished, she will be first inline to receive this medication. She is also first-line to be transferred down to ICU. Critical care time 30 minutes spent reviewing labs, reviewing imaging, discussion with Dr. Myrick, and discussion with RN. 02/16/2021 No acute events overnight. Patient becoming more hypoxic saturating 94% and requiring BiPAP. Patient will be transferred to the ICU at this time. For worsening clinical status. Discussed with pulmonary. Patient's chart, labs, images were reviewed and discussed with RN 02/17/21 Transferred to ICU yesterday afternoon. Seen and examined at bedside she remains on 100% FiO2 on BiPAP. Respirations do appear somewhat labored. Suspect intubation may be impending. We will closely monitor. Increase lisinopril to 20 today. Plan of care discussed with bedside RN. 02/18/21 Patient required intubation yesterday afternoon. Saw and examined this morning. She is intubated and sedated. Increase insulin today. Covid protocol ordered. Wean as tolerated. Plan of care discussed with bedside nurse. 02/19/21 Bedside. She remains intubated and sedated. Continue Covid protocol. Wean oxygen sedation as tolerated. Pulmonary following. Plan of care discussed with bedside RN. 02/20/21 Patient seen and examined at bedside. She remains intubated and sedated. No major clinical changes. Continue current treatment. Pulmonary following. Plan of care discussed with bedside RN. 02/21/21 Patient seen and examined at bedside. Remains intubated and sedated date and admission clinical changes. Increase free water flushes today due to hypernatremia. Plan of care discussed with bedside nurse. 02/22/21 Patient seen and examined at bedside. O2 requirement actually improving, although remains intubated. Possible SBT in the coming days. Hypernatremia improving. Plan of care discussed bedside RN. 02/23/2021: Patient remains in ICU on ventilator with FiO2 100%, PEEP 7. Repeat chest x-ray yesterday showed diffuse bilateral pulmonary opacities with no interval improvement. Will discontinue Rocephin and initiate Zosyn. We will continue IV steroids for a full 10-day course (to be completed 02/25/2021). Completed remdesivir. Continue supportive care. Critical care time 30 minutes spent reviewing charts, reviewing imaging, reviewing labs, discussion with RN. 02/24/2021: Afebrile. On vent with FiO2 40%, PEEP 6. Her Coreg has been held due to persistent bradycardia. No documented history of systolic heart failure or previous echocardiogram. Will need to obtain echocardiogram prior to discharge. Continue IV steroids and antibiotics. 02/25/2021: Afebrile. Remains ventilated with FiO2 45%, PEEP 6. Chest x-ray today showed slight improvement of the pulmonary infiltrates, no pneumothorax. Completed 10-day course of IV Decadron. Will initiate slow Solu-Medrol taper. Continue IV Zosyn. Continue supportive care. Will need echocardiogram prior to discharge to evaluate heart failure. Critical care time 30 minutes spent reviewing charts, reviewing imaging, reviewing labs, discussion with RN. Vitals/I&O Vitals/I&O: Vital Signs Date Time Temp Pulse Resp B/P (MAP) Pulse Ox O2 Delivery O2 Flow Rate FiO2 02/25/21 06:00 50 20 139/70 (93) 99 Ventilator 02/25/21 04:00 98.6 98.6 02/25/21 02:07 15.0 I & O 02/24/21 02/24/21 02/25/21 15:00 23:00 07:00 Intake Total 500 ml 1601 ml 1627 ml Output Total 500 ml 1300 ml 1205 ml Balance 0 ml 301 ml 422 ml Physical Exam General: Other (Intubated and sedated) Heart: Regular rate Abdomen: Normal bowel sounds Extremities: No clubbing, No edema Skin: No rashes, No significant lesion Labs Labs: Laboratory Tests Test 02/24/21 10:59 02/24/21 17:12 02/25/21 00:04 02/25/21 05:20 Glucose (Fingerstick) 98 mg/dL (70-99) 187 mg/dL (70-99) 157 mg/dL (70-99) White Blood Count 14.3 x10^3/uL (4.0-11.0) Red Blood Count 3.85 x10^6/uL (3.50-5.40) Hemoglobin 11.3 g/dL (12.0-15.5) Hematocrit 34.1 % (36.0-47.0) Mean Corpuscular Volume 89 fL (79-100) Mean Corpuscular Hemoglobin 29 pg (25-35) Mean Corpuscular Hemoglobin Concent 33 g/dL (31-37) Red Cell Distribution Width 13.1 % (11.5-14.5) Platelet Count 264 x10^3/uL (140-400) Neutrophils (%) (Auto) 74 % (31-73) Lymphocytes (%) (Auto) 17 % (24-48) Monocytes (%) (Auto) 8 % (0-9) Eosinophils (%) (Auto) 2 % (0-3) Basophils (%) (Auto) 0 % (0-3) Neutrophils # (Auto) 10.5 x10^3/uL (1.8-7.7) Lymphocytes # (Auto) 2.4 x10^3/uL (1.0-4.8) Monocytes # (Auto) 1.1 x10^3/uL (0.0-1.1) Eosinophils # (Auto) 0.2 x10^3/uL (0.0-0.7) Basophils # (Auto) 0.0 x10^3/uL (0.0-0.2) Test 02/25/21 06:20 Glucose (Fingerstick) 102 mg/dL (70-99) Assessment and Plan Assessmemt and Plan Problems Medical Problems: (1) Ketoacidosis Status: Acute Comment Review of Relevant I have reviewed the following items mazin (where applicable) has been applied. Medications: Current Medications Medications (Trade) Dose Ordered Sig/Pepe Route PRN Reason Start Time Stop Time Status Last Admin Dose Admin Amlodipine Besylate (Norvasc) 5 mg DAILY NG 02/24/21 09:00 02/24/21 08:13 Justifications for Admission Other Justification SANDI ALCARAZ MD Feb 25, 2021 08:12
[2021-02-25] MEDS: methylPREDNISolone SOD SUCC PF 125 MG/2 ML VIAL. IV SCH ×3 (08:37→20:45)
[2021-02-25] MEDS: FAMOTIDINE 20 MG/2 ML VIAL IVP SCH ×2 (08:37→20:45)
[2021-02-25] MEDS: LISINOPRIL 20 MG TABLET PO SCH (08:37)
[2021-02-25] MEDS: INSULIN GLARGINE SYRINGE. SQ SCH ×2 (08:38→20:46)
[2021-02-25] MEDS: DOCUSATE 100 MG/10 ML SOLUTION. PO SCH ×2 (08:38→20:45)
[2021-02-25] MEDS: ENOXAPARIN 40 MG/0.4 ML SYRINGE. SQ SCH ×2 (08:39→20:46)
[2021-02-25 08:42] LABS: CALCIUM 8.5 mg/dL (8.5-10.1); CREATININE 0.9 mg/dL (0.6-1.0); GFR 67.7; POTASSIUM 4.5 mmol/L (3.5-5.1)
[2021-02-25 09:17] LABS: BASE EXCESS ABG 11 mmol/L (-3-3); HCO3 ABG 35 mmol/L (21-28); PCO2 ABG 44 mmHg (35-46); PO2 ABG 62 mmHg (75-108); SAT O2 ABG 92 % (92-99)
[2021-02-25 09:22] LABS: FIO2 ABG 100/VENT
--- NOTE | 2021-02-25 15:47 | NUR ---
SS following up with discharge planning. SS reviewed pt chart and discussed with pt RN. Pt is currently on the vent at 45%. COVID19 positive. Pt on IV Zosyn and IV Solu Medrol. Pt on Versed and Fentanyl. Self pay. Med Assist following. Not stable. SS will continue to follow for discharge planning.
[2021-02-25] MEDS: ATORVASTATIN CALCIUM 40 MG TABLET. PO SCH (20:46)
[2021-02-26] VITALS (24 sets, daily range): BP systolic 93–184; BP diastolic 49–100
[2021-02-26] MEDS: PIPERACILLIN/TAZOBACTAM 4.5 GM in IV NORMAL SALINE 100ML 100 ML IV SCH ×5 (00:03→23:52)
[2021-02-26] MEDS: INSULIN LISPRO 300 UNITS/3 ML VIAL. SQ SCH ×8 (00:04→17:27)
[2021-02-26] MEDS: PROPOFOL 100 ML IV PRN ×4 (02:11→22:52)
[2021-02-26] MEDS: methylPREDNISolone SOD SUCC PF 125 MG/2 ML VIAL. IV SCH (05:52)
--- NOTE | 2021-02-26 07:08 | PDOC ---
[facility] PROGRESS NOTE Date of Service DOS: DATE: 02/26/21 TIME: 07:06 Chief Complaint Chief Complaint COVID-19 positive infection Tractable nausea vomiting DKA Anion gap metabolic acidosis Acute electrolyte derangementhyponatremia, hypochloremia due to volume depletion Hyperglycemia uncontrolled BOB due to vasomotor nephropathy Erythrocytosis Reglan for diabetic gastroparesis Continue Covid measures Patient intubated Pulmonary following SCD for DVT prophylaxis Protonix GI prophylaxis ADA diet Full code Discussed with RN and SW Disposition inpatient management as above Surrogate decision maker is Brian Whitmore History of Present Illness History of Present Illness 46 year old female who presents with nausea/vomiting since 7 AM yesterday morning. Patient states that her recently tested positive for Covid. She states that he "coughed in my face because he thought it was funny." She reports subjective fevers and chills and nausea/vomiting. Denies sore throat, cough, shortness of breath. No chest pain. Does have some upper abdominal discomfort after vomiting, that she attributes to muscular strain. She is not vaccinated for Covid. 02/08/2021 No acute events overnight. Patient seen and examined bedside and resting comfortably. Continues to complain of nausea not able to tolerate any diet at this time. Saturating 98% on room air. Patient's chart, labs, images were reviewed and discussed with RN 02/09/2021: Afebrile, currently breathing on room air. Still with complaints of nausea and vomiting x3 today. States that she has history of similar symptoms that have been mildly improved with IV Dilaudid. Discussed with patient that I will provide IV Dilaudid to help with her nausea, but she will not discharged on this medication. Will obtain 6-minute walk to evaluate oxygen requirements. Upon discharge, I recommend self quarantine for 10 days for resolution of her symptoms. Discussed with patient that she will discharge tomorrow. 02/10/2021: Patient febrile today with T-max 102.2 F. She still admits to nausea, denies any further vomiting. We will continue to provide supportive care and monitor for any recurrent fevers overnight. Patient continues to improve may discharge tomorrow to continue self-isolation. 02/11/2021: Febrile overnight, T-max 102.3 F. She did become hypoxic overnight, currently breathing on 4 L nasal cannula. Also admits to associated vomiting or diarrhea overnight. Discussed with RN, will initiate remdesivir and closely monitor LFTs. We will also treat with IV Decadron, and prophylactic anti biotics. 02/12/2021: Low-grade fever overnight, T-max 99.7. Currently breathing on room air. Will discontinue remdesivir, steroids, and antibiotics; will observe overnight. Still with complaints of vomiting x1 and diarrhea. We will continue to provide supportive care and hope to discharge in the next day or so. 02/13/2021: Afebrile. Still complains of intermittent diarrhea. At the time of my evaluation she was breathing on 6 L nasal cannula; this is somewhat misleading as patient states that she did not feel short of breath but was placed on 6 L by nursing staff overnight. Will have RN reassess her oxygen requirements as I did anticipate discharging today. 02/14/2021: Afebrile, currently breathing on 8 L nasal cannula. There has been some misleading documentation, chart oxygen this patient is requiring. Discussed with RN, will resume remdesivir to complete total of 5 days. Continue to monitor LFTs. Will add steroids, Rocephin, and azithromycin. Continue supportive care. 02/15/2021: Afebrile. Became much more hypoxic overnight, requiring BiPAP. At the time of my evaluation she is still breathing on BiPAP. Consultation was placed to pulmonology. Had discussion with Dr. Myrick about initiating Tocilizumab, but currently there is 1 more person in the ER that would be more deserving. When stocks are replenished, she will be first inline to receive this medication. She is also first-line to be transferred down to ICU. Critical care time 30 minutes spent reviewing labs, reviewing imaging, discussion with Dr. Myrick, and discussion with RN. 02/16/2021 No acute events overnight. Patient becoming more hypoxic saturating 94% and requiring BiPAP. Patient will be transferred to the ICU at this time. For worsening clinical status. Discussed with pulmonary. Patient's chart, labs, images were reviewed and discussed with RN 02/17/21 Transferred to ICU yesterday afternoon. Seen and examined at bedside she remains on 100% FiO2 on BiPAP. Respirations do appear somewhat labored. Suspect intubation may be impending. We will closely monitor. Increase lisinopril to 20 today. Plan of care discussed with bedside RN. 02/18/21 Patient required intubation yesterday afternoon. Saw and examined this morning. She is intubated and sedated. Increase insulin today. Covid protocol ordered. Wean as tolerated. Plan of care discussed with bedside nurse. 02/19/21 Bedside. She remains intubated and sedated. Continue Covid protocol. Wean oxygen sedation as tolerated. Pulmonary following. Plan of care discussed with bedside RN. 02/20/21 Patient seen and examined at bedside. She remains intubated and sedated. No major clinical changes. Continue current treatment. Pulmonary following. Plan of care discussed with bedside RN. 02/21/21 Patient seen and examined at bedside. Remains intubated and sedated date and admission clinical changes. Increase free water flushes today due to hypernatremia. Plan of care discussed with bedside nurse. 02/22/21 Patient seen and examined at bedside. O2 requirement actually improving, although remains intubated. Possible SBT in the coming days. Hypernatremia improving. Plan of care discussed bedside RN. 02/23/2021: Patient remains in ICU on ventilator with FiO2 100%, PEEP 7. Repeat chest x-ray yesterday showed diffuse bilateral pulmonary opacities with no interval improvement. Will discontinue Rocephin and initiate Zosyn. We will continue IV steroids for a full 10-day course (to be completed 02/25/2021). Completed remdesivir. Continue supportive care. Critical care time 30 minutes spent reviewing charts, reviewing imaging, reviewing labs, discussion with RN. 02/24/2021: Afebrile. On vent with FiO2 40%, PEEP 6. Her Coreg has been held due to persistent bradycardia. No documented history of systolic heart failure or previous echocardiogram. Will need to obtain echocardiogram prior to discharge. Continue IV steroids and antibiotics. 02/25/2021: Afebrile. Remains ventilated with FiO2 45%, PEEP 6. Chest x-ray today showed slight improvement of the pulmonary infiltrates, no pneumothorax. Completed 10-day course of IV Decadron. Will initiate slow Solu-Medrol taper. Continue IV Zosyn. Continue supportive care. Will need echocardiogram prior to discharge to evaluate heart failure. Critical care time 30 minutes spent reviewing charts, reviewing imaging, reviewing labs, discussion with RN. 02/26/2021: Afebrile. On vent with FiO2 45%, PEEP 6. Completed 10 days of IV Decadron. Will continue IV Zosyn. Continue supportive care. Critical care time 30 minutes spent reviewing charts, reviewing imaging, reviewing labs, discussion with RN. Vitals/I&O Vitals/I&O: Vital Signs Date Time Temp Pulse Resp B/P (MAP) Pulse Ox O2 Delivery O2 Flow Rate FiO2 02/26/21 06:00 54 20 149/76 (100) 100 Ventilator 02/26/21 04:00 99.5 99.5 I & O 02/25/21 02/25/21 02/26/21 15:00 23:00 07:00 Intake Total 500 ml 2017 ml 1106 ml Output Total 1100 ml 1700 ml 800 ml Balance -600 ml 317 ml 306 ml Physical Exam General: Other (Intubated and sedated) Heart: Regular rate Abdomen: Normal bowel sounds Extremities: No clubbing, No edema Skin: No rashes, No significant lesion Labs Labs: Laboratory Tests Test 02/25/21 08:00 02/25/21 11:52 02/25/21 17:23 02/25/21 23:54 O2 Saturation 92 % (92-99) Arterial Blood pH 7.51 (7.35-7.45) Arterial Blood pCO2 at Patient Temp 44 mmHg (35-46) Arterial Blood pO2 at Patient Temp 62 mmHg (75-108) Arterial Blood HCO3 35 mmol/L (21-28) Arterial Blood Base Excess 11 mmol/L (-3-3) FiO2 100/vent Glucose (Fingerstick) 168 mg/dL (70-99) 253 mg/dL (70-99) 231 mg/dL (70-99) Test 02/26/21 05:56 Glucose (Fingerstick) 230 mg/dL (70-99) Assessment and Plan Assessmemt and Plan Problems Medical Problems: (1) Ketoacidosis Status: Acute Comment Review of Relevant I have reviewed the following items mazin (where applicable) has been applied. Medications: Current Medications Medications (Trade) Dose Ordered Sig/Pepe Route PRN Reason Start Time Stop Time Status Last Admin Dose Admin Methylprednisolone Sodium Succinate (SOLU-Medrol 125MG VIAL) 80 mg Q8HRS IV 02/25/21 09:00 02/26/21 05:52 Justifications for Admission Other Justification SANDI ALCARAZ MD Feb 26, 2021 07:08
[2021-02-26] MEDS: DOCUSATE 100 MG/10 ML SOLUTION. PO SCH ×2 (07:42→20:49)
[2021-02-26] MEDS: LISINOPRIL 20 MG TABLET PO SCH (07:42)
[2021-02-26] MEDS: ENOXAPARIN 40 MG/0.4 ML SYRINGE. SQ SCH ×2 (07:42→20:50)
[2021-02-26] MEDS: FAMOTIDINE 20 MG/2 ML VIAL IVP SCH ×2 (07:42→20:50)
[2021-02-26 08:33] LABS: BASE EXCESS ABG 5 mmol/L (-3-3); HCO3 ABG 29 mmol/L (21-28); PCO2 ABG 41 mmHg (35-46); PO2 ABG 73 mmHg (75-108); SAT O2 ABG 94 % (92-99)
[2021-02-26 08:38] LABS: FIO2 ABG 45
[2021-02-26] MEDS: INSULIN GLARGINE SYRINGE. SQ SCH ×2 (08:47→20:50)
[2021-02-26] MEDS ORDERED: DEXAMETHASONE SOD PHOS 4 MG/ML VIAL IVP ONE (10:00)
--- NOTE | 2021-02-26 10:56 | PDOC ---
PULMONARY PROGRESS NOTES DATE: 02/26/21 TIME: 10:55 Subjective Patient with remains on ventilatory support, intubated 02/17/2021, improving oxygenation on 45% and PEEP 6 Sedated Afebrile nursing reports she does not tolerate reduction of sedation secondary to increased peak pressures, and copious amounts of secretions from the ET tube Vitals Vital Signs Date Time Temp Pulse Resp B/P (MAP) Pulse Ox O2 Delivery O2 Flow Rate FiO2 02/26/21 10:00 68 18 178/59 (98) 100 Ventilator 02/26/21 08:00 98.0 98.0 Comments Visual exam done due to COVID-19. intubated No paradoxical breathing. No skin rash or leg edema. Labs Laboratory Tests Test 02/24/21 10:59 02/24/21 17:12 02/25/21 00:04 02/25/21 05:20 Glucose (Fingerstick) 98 mg/dL (70-99) 187 mg/dL (70-99) 157 mg/dL (70-99) White Blood Count 14.3 x10^3/uL (4.0-11.0) Red Blood Count 3.85 x10^6/uL (3.50-5.40) Hemoglobin 11.3 g/dL (12.0-15.5) Hematocrit 34.1 % (36.0-47.0) Mean Corpuscular Volume 89 fL (79-100) Mean Corpuscular Hemoglobin 29 pg (25-35) Mean Corpuscular Hemoglobin Concent 33 g/dL (31-37) Red Cell Distribution Width 13.1 % (11.5-14.5) Platelet Count 264 x10^3/uL (140-400) Neutrophils (%) (Auto) 74 % (31-73) Lymphocytes (%) (Auto) 17 % (24-48) Monocytes (%) (Auto) 8 % (0-9) Eosinophils (%) (Auto) 2 % (0-3) Basophils (%) (Auto) 0 % (0-3) Neutrophils # (Auto) 10.5 x10^3/uL (1.8-7.7) Lymphocytes # (Auto) 2.4 x10^3/uL (1.0-4.8) Monocytes # (Auto) 1.1 x10^3/uL (0.0-1.1) Eosinophils # (Auto) 0.2 x10^3/uL (0.0-0.7) Basophils # (Auto) 0.0 x10^3/uL (0.0-0.2) Sodium Level 139 mmol/L (136-145) Potassium Level 4.5 mmol/L (3.5-5.1) Chloride Level 102 mmol/L (98-107) Carbon Dioxide Level 34 mmol/L (21-32) Anion Gap 3 (6-14) Blood Urea Nitrogen 27 mg/dL (7-20) Creatinine 0.9 mg/dL (0.6-1.0) Estimated GFR (Cockcroft-Gault) 67.7 Glucose Level 126 mg/dL (70-99) Calcium Level 8.5 mg/dL (8.5-10.1) Test 02/25/21 06:20 02/25/21 08:00 02/25/21 11:52 02/25/21 17:23 Glucose (Fingerstick) 102 mg/dL (70-99) 168 mg/dL (70-99) 253 mg/dL (70-99) O2 Saturation 92 % (92-99) Arterial Blood pH 7.51 (7.35-7.45) Arterial Blood pCO2 at Patient Temp 44 mmHg (35-46) Arterial Blood pO2 at Patient Temp 62 mmHg (75-108) Arterial Blood HCO3 35 mmol/L (21-28) Arterial Blood Base Excess 11 mmol/L (-3-3) FiO2 100/vent Test 02/25/21 23:54 02/26/21 05:56 02/26/21 08:29 Glucose (Fingerstick) 231 mg/dL (70-99) 230 mg/dL (70-99) O2 Saturation 94 % (92-99) Arterial Blood pH 7.47 (7.35-7.45) Arterial Blood pCO2 at Patient Temp 41 mmHg (35-46) Arterial Blood pO2 at Patient Temp 73 mmHg (75-108) Arterial Blood HCO3 29 mmol/L (21-28) Arterial Blood Base Excess 5 mmol/L (-3-3) FiO2 45 Laboratory Tests Test 02/25/21 11:52 02/25/21 17:23 02/25/21 23:54 02/26/21 05:56 Glucose (Fingerstick) 168 mg/dL (70-99) 253 mg/dL (70-99) 231 mg/dL (70-99) 230 mg/dL (70-99) Test 02/26/21 08:29 O2 Saturation 94 % (92-99) Arterial Blood pH 7.47 (7.35-7.45) Arterial Blood pCO2 at Patient Temp 41 mmHg (35-46) Arterial Blood pO2 at Patient Temp 73 mmHg (75-108) Arterial Blood HCO3 29 mmol/L (21-28) Arterial Blood Base Excess 5 mmol/L (-3-3) FiO2 45 Medications Active Scripts Medications Dose Route/Sig Max Daily Dose Days Date Category Novolog Flexpen (Insulin Aspart) 100 Unit/1 Ml Insuln.pen 3-7 SQ TIDACHC 02/07/21 Reported Lisinopril 5 Mg Tablet 1 Tab PO DAILY 02/07/21 Reported Lantus Solostar (Insulin Glargine,Hum.rec.anlog) 100 Unit/1 Ml Insuln.pen 5 Unit SQ QHS 04/09/15 Reported Atorvastatin Calcium 40 Mg Tablet 40 Mg PO HS 04/09/15 Reported Comments Chest x-ray 02/25/2021 IMPRESSION: Lines and tubes as described above. Slight improvement of the pulmonary infiltrates as described above. No pneumothorax. Electronically signed by: Angelito Lim MD (02/25/2021 6:16 AM) [facility] Impression: 1. Support device positioning as above. 2. Persistent and not significantly changed diffuse airspace infiltrates. Impression . IMPRESSION: 1. Acute hypoxic respiratory failure secondary to COVID-19 viral pneumonia/acute lung injury and early acute respiratory distress syndrome. S/P intubation 02/17/21,--slowly improving 2. Nonsmoker. 3. Abnormal chest x-ray consistent with COVID-19 viral pneumonia.--- Improving 4. Diabetic ketoacidosis as initial presentation, currently better.--resolved 5. Underlying obesity contributing to hypoxia as well. Plan . Updated 02/26/2021 Continue current ventilatory support //, patient continues to slowly clinically improve Patient did not tolerate reduction in sedation secondary to increased peak airway pressures, nursing reports copious amounts of secretions, will attempt to reduce sedation again today in anticipation for pressure support trial If needed will use Precedex. Likely CPAP trial today Follow chest x-ray/ABG as needed Aggressive pulmonary hygiene DC steroids as the patient has completed a full 10-day course Continue empiric antibiotics, currently on Zosyn S/P remdesivir for full course Continue tube feeding for nutritional support DVT/GI prophylaxis: Lovenox Discussed with RN and RT Critical Care time 30 minutes Updated 02/25/2021 Continue current ventilatory support 18/450/45/6, patient continues to slowly clinically improve Patient did not tolerate reduction in sedation secondary to increased peak airway pressures, nursing reports copious amounts of secretions, will attempt to reduce sedation again today in anticipation for pressure support trial Follow chest x-ray/ABG as needed Aggressive pulmonary hygiene DC steroids as the patient has completed a full 10-day course Continue empiric antibiotics, currently on Zosyn S/P remdesivir for full course Continue tube feeding for nutritional support DVT/GI prophylaxis: Lovenox Discussed with RN and RT Critical Care time 30 minutes EMILY POSADA MD Feb 26, 2021 10:56
[2021-02-26] MEDS: hydrALAZINE 20 MG/ML VIAL. IVP PRN (11:23)
[2021-02-26] MEDS: ATORVASTATIN CALCIUM 40 MG TABLET. PO SCH (20:49)
[2021-02-26] MEDS: MIDAZOLAM 100mg/100ml NS BAG 100 ML IV PRN (20:49)
[2021-02-27] VITALS (23 sets, daily range): BP systolic 84–170; BP diastolic 48–84
[2021-02-27] MEDS: INSULIN LISPRO 300 UNITS/3 ML VIAL. SQ SCH ×10 (00:01→23:55)
[2021-02-27] MEDS: PROPOFOL 100 ML IV PRN ×3 (04:09→21:51)
[2021-02-27] MEDS: PIPERACILLIN/TAZOBACTAM 4.5 GM in IV NORMAL SALINE 100ML 100 ML IV SCH ×4 (05:39→23:53)
[2021-02-27 08:01] LABS: BASE EXCESS ABG 6 mmol/L (-3-3); HCO3 ABG 30 mmol/L (21-28); PCO2 ABG 42 mmHg (35-46); PO2 ABG 98 mmHg (75-108); SAT O2 ABG 97 % (92-99)
[2021-02-27 08:02] LABS: FIO2 ABG 45
--- NOTE | 2021-02-27 08:09 | PDOC ---
[employer] PROGRESS NOTE Date of Service DOS: DATE: 02/27/21 TIME: 08:04 Chief Complaint Chief Complaint COVID-19 positive infection Tractable nausea vomiting DKA Anion gap metabolic acidosis Acute electrolyte derangementhyponatremia, hypochloremia due to volume depletion Hyperglycemia uncontrolled BOB due to vasomotor nephropathy Erythrocytosis Reglan for diabetic gastroparesis Continue Covid measures Patient intubated Pulmonary following SCD for DVT prophylaxis Protonix GI prophylaxis ADA diet Full code Discussed with RN and SW Disposition inpatient management as above Surrogate decision maker is Brian Whitmore History of Present Illness History of Present Illness 46 year old female who presents with nausea/vomiting since 7 AM yesterday morning. Patient states that her recently tested positive for Covid. She states that he "coughed in my face because he thought it was funny." She reports subjective fevers and chills and nausea/vomiting. Denies sore throat, cough, shortness of breath. No chest pain. Does have some upper abdominal discomfort after vomiting, that she attributes to muscular strain. She is not vaccinated for Covid. 02/08/2021 No acute events overnight. Patient seen and examined bedside and resting comfortably. Continues to complain of nausea not able to tolerate any diet at this time. Saturating 98% on room air. Patient's chart, labs, images were reviewed and discussed with RN 02/09/2021: Afebrile, currently breathing on room air. Still with complaints of nausea and vomiting x3 today. States that she has history of similar symptoms that have been mildly improved with IV Dilaudid. Discussed with patient that I will provide IV Dilaudid to help with her nausea, but she will not discharged on this medication. Will obtain 6-minute walk to evaluate oxygen requirements. Upon discharge, I recommend self quarantine for 10 days for resolution of her symptoms. Discussed with patient that she will discharge tomorrow. 02/10/2021: Patient febrile today with T-max 102.2 F. She still admits to nausea, denies any further vomiting. We will continue to provide supportive care and monitor for any recurrent fevers overnight. Patient continues to improve may discharge tomorrow to continue self-isolation. 02/11/2021: Febrile overnight, T-max 102.3 F. She did become hypoxic overnight, currently breathing on 4 L nasal cannula. Also admits to associated vomiting or diarrhea overnight. Discussed with RN, will initiate remdesivir and closely monitor LFTs. We will also treat with IV Decadron, and prophylactic anti biotics. 02/12/2021: Low-grade fever overnight, T-max 99.7. Currently breathing on room air. Will discontinue remdesivir, steroids, and antibiotics; will observe overnight. Still with complaints of vomiting x1 and diarrhea. We will continue to provide supportive care and hope to discharge in the next day or so. 02/13/2021: Afebrile. Still complains of intermittent diarrhea. At the time of my evaluation she was breathing on 6 L nasal cannula; this is somewhat misleading as patient states that she did not feel short of breath but was placed on 6 L by nursing staff overnight. Will have RN reassess her oxygen requirements as I did anticipate discharging today. 02/14/2021: Afebrile, currently breathing on 8 L nasal cannula. There has been some misleading documentation, chart oxygen this patient is requiring. Discussed with RN, will resume remdesivir to complete total of 5 days. Continue to monitor LFTs. Will add steroids, Rocephin, and azithromycin. Continue supportive care. 02/15/2021: Afebrile. Became much more hypoxic overnight, requiring BiPAP. At the time of my evaluation she is still breathing on BiPAP. Consultation was placed to pulmonology. Had discussion with Dr. Myrick about initiating Tocilizumab, but currently there is 1 more person in the ER that would be more deserving. When stocks are replenished, she will be first inline to receive this medication. She is also first-line to be transferred down to ICU. Critical care time 30 minutes spent reviewing labs, reviewing imaging, discussion with Dr. Myrick, and discussion with RN. 02/16/2021 No acute events overnight. Patient becoming more hypoxic saturating 94% and requiring BiPAP. Patient will be transferred to the ICU at this time. For worsening clinical status. Discussed with pulmonary. Patient's chart, labs, images were reviewed and discussed with RN 02/17/21 Transferred to ICU yesterday afternoon. Seen and examined at bedside she remains on 100% FiO2 on BiPAP. Respirations do appear somewhat labored. Suspect intubation may be impending. We will closely monitor. Increase lisinopril to 20 today. Plan of care discussed with bedside RN. 02/18/21 Patient required intubation yesterday afternoon. Saw and examined this morning. She is intubated and sedated. Increase insulin today. Covid protocol ordered. Wean as tolerated. Plan of care discussed with bedside nurse. 02/19/21 Bedside. She remains intubated and sedated. Continue Covid protocol. Wean oxygen sedation as tolerated. Pulmonary following. Plan of care discussed with bedside RN. 02/20/21 Patient seen and examined at bedside. She remains intubated and sedated. No major clinical changes. Continue current treatment. Pulmonary following. Plan of care discussed with bedside RN. 02/21/21 Patient seen and examined at bedside. Remains intubated and sedated date and admission clinical changes. Increase free water flushes today due to hypernatremia. Plan of care discussed with bedside nurse. 02/22/21 Patient seen and examined at bedside. O2 requirement actually improving, although remains intubated. Possible SBT in the coming days. Hypernatremia improving. Plan of care discussed bedside RN. 02/23/2021: Patient remains in ICU on ventilator with FiO2 100%, PEEP 7. Repeat chest x-ray yesterday showed diffuse bilateral pulmonary opacities with no interval improvement. Will discontinue Rocephin and initiate Zosyn. We will continue IV steroids for a full 10-day course (to be completed 02/25/2021). Completed remdesivir. Continue supportive care. Critical care time 30 minutes spent reviewing charts, reviewing imaging, reviewing labs, discussion with RN. 02/24/2021: Afebrile. On vent with FiO2 40%, PEEP 6. Her Coreg has been held due to persistent bradycardia. No documented history of systolic heart failure or previous echocardiogram. Will need to obtain echocardiogram prior to discharge. Continue IV steroids and antibiotics. 02/25/2021: Afebrile. Remains ventilated with FiO2 45%, PEEP 6. Chest x-ray today showed slight improvement of the pulmonary infiltrates, no pneumothorax. Completed 10-day course of IV Decadron. Will initiate slow Solu-Medrol taper. Continue IV Zosyn. Continue supportive care. Will need echocardiogram prior to discharge to evaluate heart failure. Critical care time 30 minutes spent reviewing charts, reviewing imaging, reviewing labs, discussion with RN. 02/26/2021: Afebrile. On vent with FiO2 45%, PEEP 6. Completed 10 days of IV Decadron. Will continue IV Zosyn. Continue supportive care. Critical care time 30 minutes spent reviewing charts, reviewing imaging, reviewing labs, discussion with RN. 02/27/2021: Afebrile. On vent with FiO2 45%, PEEP 6. Completed 10 days of steroids and completed remdesivir. Continue with IV Zosyn. CPAP trial yesterday. Continue NG tube and supportive care. Critical care time 30 minutes spent reviewing charts, reviewing imaging, reviewing labs, discussion with RN. Vitals/I&O Vitals/I&O: Vital Signs Date Time Temp Pulse Resp B/P (MAP) Pulse Ox O2 Delivery O2 Flow Rate FiO2 02/27/21 07:48 100 Ventilator 02/27/21 07:00 50 18 96/52 (67) 02/27/21 04:00 98.2 98.2 I & O 02/26/21 02/26/21 02/27/21 15:00 23:00 07:00 Intake Total 500 ml 4047.96 ml 1794 ml Output Total 610 ml 1025 ml 800 ml Balance -110 ml 3022.96 ml 994 ml Physical Exam General: Other (Intubated and sedated) Heart: Regular rate Lungs: Crackles Abdomen: Normal bowel sounds Extremities: No clubbing, No edema Skin: No rashes, No significant lesion Labs Labs: Laboratory Tests Test 02/26/21 08:29 02/26/21 11:29 02/26/21 17:24 02/26/21 23:55 O2 Saturation 94 % (92-99) Arterial Blood pH 7.47 (7.35-7.45) Arterial Blood pCO2 at Patient Temp 41 mmHg (35-46) Arterial Blood pO2 at Patient Temp 73 mmHg (75-108) Arterial Blood HCO3 29 mmol/L (21-28) Arterial Blood Base Excess 5 mmol/L (-3-3) FiO2 45 Glucose (Fingerstick) 236 mg/dL (70-99) 218 mg/dL (70-99) 197 mg/dL (70-99) Test 02/27/21 05:30 02/27/21 07:50 Glucose (Fingerstick) 156 mg/dL (70-99) O2 Saturation 97 % (92-99) Arterial Blood pH 7.47 (7.35-7.45) Arterial Blood pCO2 at Patient Temp 42 mmHg (35-46) Arterial Blood pO2 at Patient Temp 98 mmHg (75-108) Arterial Blood HCO3 30 mmol/L (21-28) Arterial Blood Base Excess 6 mmol/L (-3-3) FiO2 45 Assessment and Plan Assessmemt and Plan Problems Medical Problems: (1) Ketoacidosis Status: Acute Comment Review of Relevant I have reviewed the following items mazin (where applicable) has been applied. Justifications for Admission Other Justification SANDI ALCARAZ MD Feb 27, 2021 08:09
[2021-02-27] MEDS ORDERED: DEXAMETHASONE SOD PHOS 4 MG/ML VIAL IVP ONE (09:00)
[2021-02-27] MEDS: DOCUSATE 100 MG/10 ML SOLUTION. PO SCH ×2 (09:00→20:40)
[2021-02-27] MEDS: ENOXAPARIN 40 MG/0.4 ML SYRINGE. SQ SCH ×2 (09:09→20:40)
[2021-02-27] MEDS: LISINOPRIL 20 MG TABLET PO SCH (09:10)
[2021-02-27] MEDS: FAMOTIDINE 20 MG/2 ML VIAL IVP SCH ×2 (09:10→20:40)
[2021-02-27] MEDS: INSULIN GLARGINE SYRINGE. SQ SCH ×2 (09:12→20:42)
[2021-02-27] MEDS ORDERED: IV NORMAL SALINE 500ML BAG 500 ML IV PRN (09:45)
[2021-02-27] MEDS: DEXMEDETOMIDINE 400 MCG in IV NORMAL SALINE 100ML 96 ML IV PRN ×2 (10:04→15:33)
[2021-02-27 10:22] LABS: CALCIUM 8.6 mg/dL (8.5-10.1); POTASSIUM 3.8 mmol/L (3.5-5.1)
[2021-02-27] MEDS ORDERED: ALTEPLASE 2 MG VIAL INT CAT ONE (11:00)
[2021-02-27] MEDS ORDERED: ALTEPLASE 1MG SYRINGE. INT CAT ONE ×2 (14:30)
--- NOTE | 2021-02-27 15:19 | NUR ---
SS following up with discharge planning. SS reviewed pt chart and discussed with pt RN. Pt is currently on the vent at 45%. COVID19 positive. Pt on IV Zosyn. Pt on Precedex and Fentanyl. Tube feeds. Self pay. Med Assist following. SS will continue to follow for discharge planning.
[2021-02-27 16:34] LABS: BASO # 0.1 x10^3/uL (0.0-0.2); BASO % 1 % (0-3); EOS # 0.2 x10^3/uL (0.0-0.7); EOS % 1 % (0-3); HEMATOCRIT 35.7 % (36.0-47.0); LYMPH # 2.2 x10^3/uL (1.0-4.8); LYMPH % 15 % (24-48); MEAN CORPUSCULAR HEMOGLOBIN 29 pg (25-35); MEAN CORPUSCULAR HGB CONC 34 g/dL (31-37); MEAN CORPUSCULAR VOLUME 88 fL (79-100); MONO # 1.2 x10^3/uL (0.0-1.1); MONO % 8 % (0-9); NEUT # 10.6 x10^3/uL (1.8-7.7); NEUT % 75 % (31-73); PLATELET COUNT 296 x10^3/uL (140-400); RED BLOOD COUNT 4.08 x10^6/uL (3.50-5.40); RED CELL DISTRIBUTION WIDTH 13.1 % (11.5-14.5); WHITE BLOOD COUNT 14.1 x10^3/uL (4.0-11.0)
--- NOTE | 2021-02-27 19:49 | PDOC ---
PULMONARY PROGRESS NOTES DATE: 02/27/21 TIME: 19:47 Subjective Patient with remains on ventilatory support, intubated 02/17/2021, improving oxygenation on 45% and PEEP 6 Sedated Afebrile nursing reports she does not tolerate reduction of sedation secondary to increased peak pressures, and copious amounts of secretions from the ET tube Vitals Vital Signs Date Time Temp Pulse Resp B/P (MAP) Pulse Ox O2 Delivery O2 Flow Rate FiO2 02/27/21 19:00 56 18 151/74 (99) 100 Ventilator 02/27/21 16:00 99.2 99.2 Comments Visual exam done due to COVID-19. intubated No paradoxical breathing. No skin rash or leg edema. Labs Laboratory Tests Test 02/25/21 23:54 02/26/21 05:56 02/26/21 08:29 02/26/21 11:29 Glucose (Fingerstick) 231 mg/dL (70-99) 230 mg/dL (70-99) 236 mg/dL (70-99) O2 Saturation 94 % (92-99) Arterial Blood pH 7.47 (7.35-7.45) Arterial Blood pCO2 at Patient Temp 41 mmHg (35-46) Arterial Blood pO2 at Patient Temp 73 mmHg (75-108) Arterial Blood HCO3 29 mmol/L (21-28) Arterial Blood Base Excess 5 mmol/L (-3-3) FiO2 45 Test 02/26/21 17:24 02/26/21 23:55 02/27/21 05:30 02/27/21 07:50 Glucose (Fingerstick) 218 mg/dL (70-99) 197 mg/dL (70-99) 156 mg/dL (70-99) O2 Saturation 97 % (92-99) Arterial Blood pH 7.47 (7.35-7.45) Arterial Blood pCO2 at Patient Temp 42 mmHg (35-46) Arterial Blood pO2 at Patient Temp 98 mmHg (75-108) Arterial Blood HCO3 30 mmol/L (21-28) Arterial Blood Base Excess 6 mmol/L (-3-3) FiO2 45 Test 02/27/21 10:00 02/27/21 12:27 02/27/21 16:27 02/27/21 18:05 Sodium Level 139 mmol/L (136-145) Potassium Level 3.8 mmol/L (3.5-5.1) Chloride Level 103 mmol/L (98-107) Carbon Dioxide Level 35 mmol/L (21-32) Anion Gap 1 (6-14) Blood Urea Nitrogen 26 mg/dL (7-20) Creatinine 1.0 mg/dL (0.6-1.0) Estimated GFR (Cockcroft-Gault) 60.0 Glucose Level 110 mg/dL (70-99) Calcium Level 8.6 mg/dL (8.5-10.1) Glucose (Fingerstick) 90 mg/dL (70-99) 77 mg/dL (70-99) White Blood Count 14.1 x10^3/uL (4.0-11.0) Red Blood Count 4.08 x10^6/uL (3.50-5.40) Hemoglobin 12.0 g/dL (12.0-15.5) Hematocrit 35.7 % (36.0-47.0) Mean Corpuscular Volume 88 fL (79-100) Mean Corpuscular Hemoglobin 29 pg (25-35) Mean Corpuscular Hemoglobin Concent 34 g/dL (31-37) Red Cell Distribution Width 13.1 % (11.5-14.5) Platelet Count 296 x10^3/uL (140-400) Neutrophils (%) (Auto) 75 % (31-73) Lymphocytes (%) (Auto) 15 % (24-48) Monocytes (%) (Auto) 8 % (0-9) Eosinophils (%) (Auto) 1 % (0-3) Basophils (%) (Auto) 1 % (0-3) Neutrophils # (Auto) 10.6 x10^3/uL (1.8-7.7) Lymphocytes # (Auto) 2.2 x10^3/uL (1.0-4.8) Monocytes # (Auto) 1.2 x10^3/uL (0.0-1.1) Eosinophils # (Auto) 0.2 x10^3/uL (0.0-0.7) Basophils # (Auto) 0.1 x10^3/uL (0.0-0.2) Laboratory Tests Test 02/26/21 23:55 02/27/21 05:30 02/27/21 07:50 02/27/21 10:00 Glucose (Fingerstick) 197 mg/dL (70-99) 156 mg/dL (70-99) O2 Saturation 97 % (92-99) Arterial Blood pH 7.47 (7.35-7.45) Arterial Blood pCO2 at Patient Temp 42 mmHg (35-46) Arterial Blood pO2 at Patient Temp 98 mmHg (75-108) Arterial Blood HCO3 30 mmol/L (21-28) Arterial Blood Base Excess 6 mmol/L (-3-3) FiO2 45 Sodium Level 139 mmol/L (136-145) Potassium Level 3.8 mmol/L (3.5-5.1) Chloride Level 103 mmol/L (98-107) Carbon Dioxide Level 35 mmol/L (21-32) Anion Gap 1 (6-14) Blood Urea Nitrogen 26 mg/dL (7-20) Creatinine 1.0 mg/dL (0.6-1.0) Estimated GFR (Cockcroft-Gault) 60.0 Glucose Level 110 mg/dL (70-99) Calcium Level 8.6 mg/dL (8.5-10.1) Test 02/27/21 12:27 02/27/21 16:27 02/27/21 18:05 Glucose (Fingerstick) 90 mg/dL (70-99) 77 mg/dL (70-99) White Blood Count 14.1 x10^3/uL (4.0-11.0) Red Blood Count 4.08 x10^6/uL (3.50-5.40) Hemoglobin 12.0 g/dL (12.0-15.5) Hematocrit 35.7 % (36.0-47.0) Mean Corpuscular Volume 88 fL (79-100) Mean Corpuscular Hemoglobin 29 pg (25-35) Mean Corpuscular Hemoglobin Concent 34 g/dL (31-37) Red Cell Distribution Width 13.1 % (11.5-14.5) Platelet Count 296 x10^3/uL (140-400) Neutrophils (%) (Auto) 75 % (31-73) Lymphocytes (%) (Auto) 15 % (24-48) Monocytes (%) (Auto) 8 % (0-9) Eosinophils (%) (Auto) 1 % (0-3) Basophils (%) (Auto) 1 % (0-3) Neutrophils # (Auto) 10.6 x10^3/uL (1.8-7.7) Lymphocytes # (Auto) 2.2 x10^3/uL (1.0-4.8) Monocytes # (Auto) 1.2 x10^3/uL (0.0-1.1) Eosinophils # (Auto) 0.2 x10^3/uL (0.0-0.7) Basophils # (Auto) 0.1 x10^3/uL (0.0-0.2) Medications Active Scripts Medications Dose Route/Sig Max Daily Dose Days Date Category Novolog Flexpen (Insulin Aspart) 100 Unit/1 Ml Insuln.pen 3-7 SQ TIDACHC 02/07/21 Reported Lisinopril 5 Mg Tablet 1 Tab PO DAILY 02/07/21 Reported Lantus Solostar (Insulin Glargine,Hum.rec.anlog) 100 Unit/1 Ml Insuln.pen 5 Unit SQ QHS 04/09/15 Reported Atorvastatin Calcium 40 Mg Tablet 40 Mg PO HS 04/09/15 Reported Comments Chest x-ray 02/25/2021 IMPRESSION: Lines and tubes as described above. Slight improvement of the pulmonary infiltrates as described above. No pneumothorax. Electronically signed by: Angelito Lim MD (02/25/2021 6:16 AM) [facility] Impression: 1. Support device positioning as above. 2. Persistent and not significantly changed diffuse airspace infiltrates. Impression . IMPRESSION: 1. Acute hypoxic respiratory failure secondary to COVID-19 viral pneumonia/acute lung injury and early acute respiratory distress syndrome. S/P intubation 02/17/21,--slowly improving 2. Nonsmoker. 3. Abnormal chest x-ray consistent with COVID-19 viral pneumonia.--- Improving 4. Diabetic ketoacidosis as initial presentation, currently better.--resolved 5. Underlying obesity contributing to hypoxia as well. Plan . Updated 02/27/2021 Continue current ventilatory support /45/6, patient continues to slowly clinically improve Patient did not tolerate reduction in sedation secondary to increased peak airway pressures, nursing reports copious amounts of secretions, will attempt to reduce sedation again today in anticipation for pressure support trial If needed will use Precedex. Likely CPAP trial again today Follow chest x-ray/ABG as needed off steroids as the patient has completed a full 10-day course Continue empiric antibiotics, currently on Zosyn S/P remdesivir for full course Continue tube feeding for nutritional support DVT/GI prophylaxis: Lovenox Discussed with RN and RT Critical Care time 30 minutes Updated 02/26/2021 Continue current ventilatory support 18/450/45/6, patient continues to slowly clinically improve Patient did not tolerate reduction in sedation secondary to increased peak airway pressures, nursing reports copious amounts of secretions, will attempt to reduce sedation again today in anticipation for pressure support trial If needed will use Precedex. Likely CPAP trial today Follow chest x-ray/ABG as needed Aggressive pulmonary hygiene DC steroids as the patient has completed a full 10-day course Continue empiric antibiotics, currently on Zosyn S/P remdesivir for full course Continue tube feeding for nutritional support DVT/GI prophylaxis: Lovenox Discussed with RN and RT Critical Care time 30 minutes Updated 02/25/2021 Continue current ventilatory support 18/450/45/6, patient continues to slowly clinically improve Patient did not tolerate reduction in sedation secondary to increased peak airway pressures, nursing reports copious amounts of secretions, will attempt to reduce sedation again today in anticipation for pressure support trial Follow chest x-ray/ABG as needed Aggressive pulmonary hygiene DC steroids as the patient has completed a full 10-day course Continue empiric antibiotics, currently on Zosyn S/P remdesivir for full course Continue tube feeding for nutritional support DVT/GI prophylaxis: Lovenox Discussed with RN and RT Critical Care time 30 minutes EMILY POSADA MD Feb 27, 2021 19:49
[2021-02-27] MEDS: ATORVASTATIN CALCIUM 40 MG TABLET. PO SCH (20:40)
[2021-02-27] MEDS ORDERED: DEXTROSE 50% 25 GM / 50ML DISP.SYRIN. IV ONE (23:48)
[2021-02-28] VITALS (25 sets, daily range): BP systolic 79–181; BP diastolic 40–85
[2021-02-28] MEDS ORDERED: DEXTROSE 50% 25 GM / 50ML DISP.SYRIN. IV ONE
[2021-02-28] MEDS: DEXMEDETOMIDINE 400 MCG in IV NORMAL SALINE 100ML 96 ML IV PRN ×3 (01:29→19:27)
[2021-02-28] MEDS: INSULIN LISPRO 300 UNITS/3 ML VIAL. SQ SCH ×5 (06:00→18:00)
[2021-02-28 06:17] LABS: BASO % 0 % (0-3); EOS # 0.4 x10^3/uL (0.0-0.7); EOS % 3 % (0-3); HEMOGLOBIN 10.7 g/dL (12.0-15.5); LYMPH % 25 % (24-48); MEAN CORPUSCULAR HEMOGLOBIN 29 pg (25-35); MEAN CORPUSCULAR HGB CONC 33 g/dL (31-37); MEAN CORPUSCULAR VOLUME 88 fL (79-100); MONO # 0.8 x10^3/uL (0.0-1.1); MONO % 6 % (0-9); NEUT # 7.8 x10^3/uL (1.8-7.7); NEUT % 65 % (31-73); PLATELET COUNT 289 x10^3/uL (140-400); RED BLOOD COUNT 3.64 x10^6/uL (3.50-5.40); RED CELL DISTRIBUTION WIDTH 13.4 % (11.5-14.5); WHITE BLOOD COUNT 11.9 x10^3/uL (4.0-11.0)
[2021-02-28] MEDS: PIPERACILLIN/TAZOBACTAM 4.5 GM in IV NORMAL SALINE 100ML 100 ML IV SCH ×4 (06:20→21:56)
[2021-02-28 06:28] LABS: POTASSIUM 3.6 mmol/L (3.5-5.1)
--- NOTE | 2021-02-28 07:07 | PDOC ---
PULMONARY PROGRESS NOTES DATE: 02/28/21 TIME: 07:04 Subjective Patient with remains on ventilatory support, intubated 02/17/2021, improving oxygenation on 40% and PEEP 5 small ett secretion Sedated fentanyl prop precedex Afebrile nursing reports she does not tolerate reduction of sedation secondary to increased peak pressures and tachypneac, Vitals Vital Signs Date Time Temp Pulse Resp B/P (MAP) Pulse Ox O2 Delivery O2 Flow Rate FiO2 02/28/21 06:00 72 23 114/63 (80) 100 Ventilator 02/28/21 04:00 98.1 98.1 Comments Visual exam done due to COVID-19. intubated NC AT RRR no accessory muscle use abd obese No skin rash or leg edema. Labs Laboratory Tests Test 02/26/21 08:29 02/26/21 11:29 02/26/21 17:24 02/26/21 23:55 O2 Saturation 94 % (92-99) Arterial Blood pH 7.47 (7.35-7.45) Arterial Blood pCO2 at Patient Temp 41 mmHg (35-46) Arterial Blood pO2 at Patient Temp 73 mmHg (75-108) Arterial Blood HCO3 29 mmol/L (21-28) Arterial Blood Base Excess 5 mmol/L (-3-3) FiO2 45 Glucose (Fingerstick) 236 mg/dL (70-99) 218 mg/dL (70-99) 197 mg/dL (70-99) Test 02/27/21 05:30 02/27/21 07:50 02/27/21 10:00 02/27/21 12:27 Glucose (Fingerstick) 156 mg/dL (70-99) 90 mg/dL (70-99) O2 Saturation 97 % (92-99) Arterial Blood pH 7.47 (7.35-7.45) Arterial Blood pCO2 at Patient Temp 42 mmHg (35-46) Arterial Blood pO2 at Patient Temp 98 mmHg (75-108) Arterial Blood HCO3 30 mmol/L (21-28) Arterial Blood Base Excess 6 mmol/L (-3-3) FiO2 45 Sodium Level 139 mmol/L (136-145) Potassium Level 3.8 mmol/L (3.5-5.1) Chloride Level 103 mmol/L (98-107) Carbon Dioxide Level 35 mmol/L (21-32) Anion Gap 1 (6-14) Blood Urea Nitrogen 26 mg/dL (7-20) Creatinine 1.0 mg/dL (0.6-1.0) Estimated GFR (Cockcroft-Gault) 60.0 Glucose Level 110 mg/dL (70-99) Calcium Level 8.6 mg/dL (8.5-10.1) Test 02/27/21 16:27 02/27/21 18:05 02/27/21 23:43 02/28/21 05:55 White Blood Count 14.1 x10^3/uL (4.0-11.0) Red Blood Count 4.08 x10^6/uL (3.50-5.40) Hemoglobin 12.0 g/dL (12.0-15.5) Hematocrit 35.7 % (36.0-47.0) Mean Corpuscular Volume 88 fL (79-100) Mean Corpuscular Hemoglobin 29 pg (25-35) Mean Corpuscular Hemoglobin Concent 34 g/dL (31-37) Red Cell Distribution Width 13.1 % (11.5-14.5) Platelet Count 296 x10^3/uL (140-400) Neutrophils (%) (Auto) 75 % (31-73) Lymphocytes (%) (Auto) 15 % (24-48) Monocytes (%) (Auto) 8 % (0-9) Eosinophils (%) (Auto) 1 % (0-3) Basophils (%) (Auto) 1 % (0-3) Neutrophils # (Auto) 10.6 x10^3/uL (1.8-7.7) Lymphocytes # (Auto) 2.2 x10^3/uL (1.0-4.8) Monocytes # (Auto) 1.2 x10^3/uL (0.0-1.1) Eosinophils # (Auto) 0.2 x10^3/uL (0.0-0.7) Basophils # (Auto) 0.1 x10^3/uL (0.0-0.2) Glucose (Fingerstick) 77 mg/dL (70-99) 64 mg/dL (70-99) 78 mg/dL (70-99) Test 02/28/21 06:00 White Blood Count 11.9 x10^3/uL (4.0-11.0) Red Blood Count 3.64 x10^6/uL (3.50-5.40) Hemoglobin 10.7 g/dL (12.0-15.5) Hematocrit 32.0 % (36.0-47.0) Mean Corpuscular Volume 88 fL (79-100) Mean Corpuscular Hemoglobin 29 pg (25-35) Mean Corpuscular Hemoglobin Concent 33 g/dL (31-37) Red Cell Distribution Width 13.4 % (11.5-14.5) Platelet Count 289 x10^3/uL (140-400) Neutrophils (%) (Auto) 65 % (31-73) Lymphocytes (%) (Auto) 25 % (24-48) Monocytes (%) (Auto) 6 % (0-9) Eosinophils (%) (Auto) 3 % (0-3) Basophils (%) (Auto) 0 % (0-3) Neutrophils # (Auto) 7.8 x10^3/uL (1.8-7.7) Lymphocytes # (Auto) 3.0 x10^3/uL (1.0-4.8) Monocytes # (Auto) 0.8 x10^3/uL (0.0-1.1) Eosinophils # (Auto) 0.4 x10^3/uL (0.0-0.7) Basophils # (Auto) 0.0 x10^3/uL (0.0-0.2) Sodium Level 142 mmol/L (136-145) Potassium Level 3.6 mmol/L (3.5-5.1) Chloride Level 107 mmol/L (98-107) Carbon Dioxide Level 33 mmol/L (21-32) Anion Gap 2 (6-14) Blood Urea Nitrogen 22 mg/dL (7-20) Creatinine 1.0 mg/dL (0.6-1.0) Estimated GFR (Cockcroft-Gault) 60.0 Glucose Level 76 mg/dL (70-99) Calcium Level 8.0 mg/dL (8.5-10.1) Laboratory Tests Test 02/27/21 07:50 02/27/21 10:00 02/27/21 12:27 02/27/21 16:27 O2 Saturation 97 % (92-99) Arterial Blood pH 7.47 (7.35-7.45) Arterial Blood pCO2 at Patient Temp 42 mmHg (35-46) Arterial Blood pO2 at Patient Temp 98 mmHg (75-108) Arterial Blood HCO3 30 mmol/L (21-28) Arterial Blood Base Excess 6 mmol/L (-3-3) FiO2 45 Sodium Level 139 mmol/L (136-145) Potassium Level 3.8 mmol/L (3.5-5.1) Chloride Level 103 mmol/L (98-107) Carbon Dioxide Level 35 mmol/L (21-32) Anion Gap 1 (6-14) Blood Urea Nitrogen 26 mg/dL (7-20) Creatinine 1.0 mg/dL (0.6-1.0) Estimated GFR (Cockcroft-Gault) 60.0 Glucose Level 110 mg/dL (70-99) Calcium Level 8.6 mg/dL (8.5-10.1) Glucose (Fingerstick) 90 mg/dL (70-99) White Blood Count 14.1 x10^3/uL (4.0-11.0) Red Blood Count 4.08 x10^6/uL (3.50-5.40) Hemoglobin 12.0 g/dL (12.0-15.5) Hematocrit 35.7 % (36.0-47.0) Mean Corpuscular Volume 88 fL (79-100) Mean Corpuscular Hemoglobin 29 pg (25-35) Mean Corpuscular Hemoglobin Concent 34 g/dL (31-37) Red Cell Distribution Width 13.1 % (11.5-14.5) Platelet Count 296 x10^3/uL (140-400) Neutrophils (%) (Auto) 75 % (31-73) Lymphocytes (%) (Auto) 15 % (24-48) Monocytes (%) (Auto) 8 % (0-9) Eosinophils (%) (Auto) 1 % (0-3) Basophils (%) (Auto) 1 % (0-3) Neutrophils # (Auto) 10.6 x10^3/uL (1.8-7.7) Lymphocytes # (Auto) 2.2 x10^3/uL (1.0-4.8) Monocytes # (Auto) 1.2 x10^3/uL (0.0-1.1) Eosinophils # (Auto) 0.2 x10^3/uL (0.0-0.7) Basophils # (Auto) 0.1 x10^3/uL (0.0-0.2) Test 02/27/21 18:05 02/27/21 23:43 02/28/21 05:55 02/28/21 06:00 Glucose (Fingerstick) 77 mg/dL (70-99) 64 mg/dL (70-99) 78 mg/dL (70-99) White Blood Count 11.9 x10^3/uL (4.0-11.0) Red Blood Count 3.64 x10^6/uL (3.50-5.40) Hemoglobin 10.7 g/dL (12.0-15.5) Hematocrit 32.0 % (36.0-47.0) Mean Corpuscular Volume 88 fL (79-100) Mean Corpuscular Hemoglobin 29 pg (25-35) Mean Corpuscular Hemoglobin Concent 33 g/dL (31-37) Red Cell Distribution Width 13.4 % (11.5-14.5) Platelet Count 289 x10^3/uL (140-400) Neutrophils (%) (Auto) 65 % (31-73) Lymphocytes (%) (Auto) 25 % (24-48) Monocytes (%) (Auto) 6 % (0-9) Eosinophils (%) (Auto) 3 % (0-3) Basophils (%) (Auto) 0 % (0-3) Neutrophils # (Auto) 7.8 x10^3/uL (1.8-7.7) Lymphocytes # (Auto) 3.0 x10^3/uL (1.0-4.8) Monocytes # (Auto) 0.8 x10^3/uL (0.0-1.1) Eosinophils # (Auto) 0.4 x10^3/uL (0.0-0.7) Basophils # (Auto) 0.0 x10^3/uL (0.0-0.2) Sodium Level 142 mmol/L (136-145) Potassium Level 3.6 mmol/L (3.5-5.1) Chloride Level 107 mmol/L (98-107) Carbon Dioxide Level 33 mmol/L (21-32) Anion Gap 2 (6-14) Blood Urea Nitrogen 22 mg/dL (7-20) Creatinine 1.0 mg/dL (0.6-1.0) Estimated GFR (Cockcroft-Gault) 60.0 Glucose Level 76 mg/dL (70-99) Calcium Level 8.0 mg/dL (8.5-10.1) Medications Active Scripts Medications Dose Route/Sig Max Daily Dose Days Date Category Novolog Flexpen (Insulin Aspart) 100 Unit/1 Ml Insuln.pen 3-7 SQ TIDACHC 02/07/21 Reported Lisinopril 5 Mg Tablet 1 Tab PO DAILY 02/07/21 Reported Lantus Solostar (Insulin Glargine,Hum.rec.anlog) 100 Unit/1 Ml Insuln.pen 5 Unit SQ QHS 04/09/15 Reported Atorvastatin Calcium 40 Mg Tablet 40 Mg PO HS 04/09/15 Reported Comments Chest x-ray 02/25/2021 IMPRESSION: Lines and tubes as described above. Slight improvement of the pulmonary infiltrates as described above. No pneumothorax. Electronically signed by: Angelito Lim MD (02/25/2021 6:16 AM) [facility] CXR 02/20 Impression: 1. Support device positioning as above. 2. Persistent and not significantly changed diffuse airspace infiltrates. Impression . IMPRESSION: 1. Acute hypoxic respiratory failure secondary to COVID-19 viral pneumonia/acute lung injury and early acute respiratory distress syndrome. S/P intubation 02/17/21,--slowly improving 2. Nonsmoker. 3. Abnormal chest x-ray consistent with COVID-19 viral pneumonia.--- Improving 4. Diabetic ketoacidosis as initial presentation, currently better.--resolved 5. Underlying obesity contributing to hypoxia as well. Plan . Updated 02/28/2021 Continue current ventilatory support 18/450/40/5, patient continues to slowly clinically improve will decrease sedation sbt when more awake on Precedex. Follow chest x-ray/ABG as needed off steroids as the patient has completed a full 10-day course Continue empiric antibiotics, currently on Zosyn S/P remdesivir for full course Continue tube feeding for nutritional support DVT/GI prophylaxis: Lovenox Discussed with RN and RT Updated 02/27/2021 Continue current ventilatory support 18/450/45/6, patient continues to slowly clinically improve Patient did not tolerate reduction in sedation secondary to increased peak airway pressures, nursing reports copious amounts of secretions, will attempt to reduce sedation again today in anticipation for pressure support trial If needed will use Precedex. Likely CPAP trial again today Follow chest x-ray/ABG as needed off steroids as the patient has completed a full 10-day course Continue empiric antibiotics, currently on Zosyn S/P remdesivir for full course Continue tube feeding for nutritional support DVT/GI prophylaxis: Lovenox Discussed with RN and RT Critical Care time 30 minutes Updated 02/26/2021 Continue current ventilatory support 18/450/45/6, patient continues to slowly clinically improve Patient did not tolerate reduction in sedation secondary to increased peak airway pressures, nursing reports copious amounts of secretions, will attempt to reduce sedation again today in anticipation for pressure support trial If needed will use Precedex. Likely CPAP trial today Follow chest x-ray/ABG as needed Aggressive pulmonary hygiene DC steroids as the patient has completed a full 10-day course Continue empiric antibiotics, currently on Zosyn S/P remdesivir for full course Continue tube feeding for nutritional support DVT/GI prophylaxis: Lovenox Discussed with RN and RT Critical Care time 30 minutes Updated 02/25/2021 Continue current ventilatory support 18/450/45/6, patient continues to slowly clinically improve Patient did not tolerate reduction in sedation secondary to increased peak airway pressures, nursing reports copious amounts of secretions, will attempt to reduce sedation again today in anticipation for pressure support trial Follow chest x-ray/ABG as needed Aggressive pulmonary hygiene DC steroids as the patient has completed a full 10-day course Continue empiric antibiotics, currently on Zosyn S/P remdesivir for full course Continue tube feeding for nutritional support DVT/GI prophylaxis: Lovenox Discussed with RN and RT Critical Care time 30 minutes SHERRIE MARMOLEJO MD Feb 28, 2021 07:07
[2021-02-28 08:33] LABS: BASE EXCESS ABG 6 mmol/L (-3-3); HCO3 ABG 30 mmol/L (21-28); PCO2 ABG 42 mmHg (35-46); PO2 ABG 64 mmHg (75-108); SAT O2 ABG 92 % (92-99)
[2021-02-28 08:37] LABS: FIO2 ABG 40
[2021-02-28] MEDS: FAMOTIDINE 20 MG/2 ML VIAL IVP SCH ×2 (08:55→21:05)
[2021-02-28] MEDS: DOCUSATE 100 MG/10 ML SOLUTION. PO SCH ×3 (08:56→21:05)
[2021-02-28] MEDS: ENOXAPARIN 40 MG/0.4 ML SYRINGE. SQ SCH ×2 (08:56→21:04)
[2021-02-28] MEDS: LISINOPRIL 20 MG TABLET PO SCH (09:00)
--- NOTE | 2021-02-28 09:37 | PDOC ---
[facility] PROGRESS NOTE Date of Service DOS: DATE: 02/28/21 TIME: 09:34 Chief Complaint Chief Complaint COVID-19 positive infection Tractable nausea vomiting DKA Anion gap metabolic acidosis Acute electrolyte derangementhyponatremia, hypochloremia due to volume depletion Hyperglycemia uncontrolled BOB due to vasomotor nephropathy Erythrocytosis Reglan for diabetic gastroparesis Continue Covid measures Patient intubated Pulmonary following SCD for DVT prophylaxis Protonix GI prophylaxis ADA diet Full code Discussed with RN and SW Disposition inpatient management as above Surrogate decision maker is Brian Whitmore History of Present Illness History of Present Illness 46 year old female who presents with nausea/vomiting since 7 AM yesterday morning. Patient states that her recently tested positive for Covid. She states that he "coughed in my face because he thought it was funny." She reports subjective fevers and chills and nausea/vomiting. Denies sore throat, cough, shortness of breath. No chest pain. Does have some upper abdominal discomfort after vomiting, that she attributes to muscular strain. She is not vaccinated for Covid. 02/08/2021 No acute events overnight. Patient seen and examined bedside and resting comfortably. Continues to complain of nausea not able to tolerate any diet at this time. Saturating 98% on room air. Patient's chart, labs, images were reviewed and discussed with RN 02/09/2021: Afebrile, currently breathing on room air. Still with complaints of nausea and vomiting x3 today. States that she has history of similar symptoms that have been mildly improved with IV Dilaudid. Discussed with patient that I will provide IV Dilaudid to help with her nausea, but she will not discharged on this medication. Will obtain 6-minute walk to evaluate oxygen requirements. Upon discharge, I recommend self quarantine for 10 days for resolution of her symptoms. Discussed with patient that she will discharge tomorrow. 02/10/2021: Patient febrile today with T-max 102.2 F. She still admits to nausea, denies any further vomiting. We will continue to provide supportive care and monitor for any recurrent fevers overnight. Patient continues to improve may discharge tomorrow to continue self-isolation. 02/11/2021: Febrile overnight, T-max 102.3 F. She did become hypoxic overnight, currently breathing on 4 L nasal cannula. Also admits to associated vomiting or diarrhea overnight. Discussed with RN, will initiate remdesivir and closely monitor LFTs. We will also treat with IV Decadron, and prophylactic anti biotics. 02/12/2021: Low-grade fever overnight, T-max 99.7. Currently breathing on room air. Will discontinue remdesivir, steroids, and antibiotics; will observe overnight. Still with complaints of vomiting x1 and diarrhea. We will continue to provide supportive care and hope to discharge in the next day or so. 02/13/2021: Afebrile. Still complains of intermittent diarrhea. At the time of my evaluation she was breathing on 6 L nasal cannula; this is somewhat misleading as patient states that she did not feel short of breath but was placed on 6 L by nursing staff overnight. Will have RN reassess her oxygen requirements as I did anticipate discharging today. 02/14/2021: Afebrile, currently breathing on 8 L nasal cannula. There has been some misleading documentation, chart oxygen this patient is requiring. Discussed with RN, will resume remdesivir to complete total of 5 days. Continue to monitor LFTs. Will add steroids, Rocephin, and azithromycin. Continue supportive care. 02/15/2021: Afebrile. Became much more hypoxic overnight, requiring BiPAP. At the time of my evaluation she is still breathing on BiPAP. Consultation was placed to pulmonology. Had discussion with Dr. Myrick about initiating Tocilizumab, but currently there is 1 more person in the ER that would be more deserving. When stocks are replenished, she will be first inline to receive this medication. She is also first-line to be transferred down to ICU. Critical care time 30 minutes spent reviewing labs, reviewing imaging, discussion with Dr. Myrick, and discussion with RN. 02/16/2021 No acute events overnight. Patient becoming more hypoxic saturating 94% and requiring BiPAP. Patient will be transferred to the ICU at this time. For worsening clinical status. Discussed with pulmonary. Patient's chart, labs, images were reviewed and discussed with RN 02/17/21 Transferred to ICU yesterday afternoon. Seen and examined at bedside she remains on 100% FiO2 on BiPAP. Respirations do appear somewhat labored. Suspect intubation may be impending. We will closely monitor. Increase lisinopril to 20 today. Plan of care discussed with bedside RN. 02/18/21 Patient required intubation yesterday afternoon. Saw and examined this morning. She is intubated and sedated. Increase insulin today. Covid protocol ordered. Wean as tolerated. Plan of care discussed with bedside nurse. 02/19/21 Bedside. She remains intubated and sedated. Continue Covid protocol. Wean oxygen sedation as tolerated. Pulmonary following. Plan of care discussed with bedside RN. 02/20/21 Patient seen and examined at bedside. She remains intubated and sedated. No major clinical changes. Continue current treatment. Pulmonary following. Plan of care discussed with bedside RN. 02/21/21 Patient seen and examined at bedside. Remains intubated and sedated date and admission clinical changes. Increase free water flushes today due to hypernatremia. Plan of care discussed with bedside nurse. 02/22/21 Patient seen and examined at bedside. O2 requirement actually improving, although remains intubated. Possible SBT in the coming days. Hypernatremia improving. Plan of care discussed bedside RN. 02/23/2021: Patient remains in ICU on ventilator with FiO2 100%, PEEP 7. Repeat chest x-ray yesterday showed diffuse bilateral pulmonary opacities with no interval improvement. Will discontinue Rocephin and initiate Zosyn. We will continue IV steroids for a full 10-day course (to be completed 02/25/2021). Completed remdesivir. Continue supportive care. Critical care time 30 minutes spent reviewing charts, reviewing imaging, reviewing labs, discussion with RN. 02/24/2021: Afebrile. On vent with FiO2 40%, PEEP 6. Her Coreg has been held due to persistent bradycardia. No documented history of systolic heart failure or previous echocardiogram. Will need to obtain echocardiogram prior to discharge. Continue IV steroids and antibiotics. 02/25/2021: Afebrile. Remains ventilated with FiO2 45%, PEEP 6. Chest x-ray today showed slight improvement of the pulmonary infiltrates, no pneumothorax. Completed 10-day course of IV Decadron. Will initiate slow Solu-Medrol taper. Continue IV Zosyn. Continue supportive care. Will need echocardiogram prior to discharge to evaluate heart failure. Critical care time 30 minutes spent reviewing charts, reviewing imaging, reviewing labs, discussion with RN. 02/26/2021: Afebrile. On vent with FiO2 45%, PEEP 6. Completed 10 days of IV Decadron. Will continue IV Zosyn. Continue supportive care. Critical care time 30 minutes spent reviewing charts, reviewing imaging, reviewing labs, discussion with RN. 02/27/2021: Afebrile. On vent with FiO2 45%, PEEP 6. Completed 10 days of steroids and completed remdesivir. Continue with IV Zosyn. CPAP trial yesterday. Continue NG tube and supportive care. Critical care time 30 minutes spent reviewing charts, reviewing imaging, reviewing labs, discussion with RN. 02/28/2021:. Patient remains on vent with FiO2 40%, PEEP 5. Afebrile. Completed steroids and remdesivir. Some noted hypoglycemia overnight, will de- escalate basal insulin. Continue IV Zosyn. Ventilator management per pulmonology. Continue NG tube and supportive care. Critical care time 30 m inutes spent reviewing charts, reviewing imaging, reviewing labs, discussion with RN. Vitals/I&O Vitals/I&O: Vital Signs Date Time Temp Pulse Resp B/P (MAP) Pulse Ox O2 Delivery O2 Flow Rate FiO2 02/28/21 08:55 100 15.0 02/28/21 08:17 Ventilator 02/28/21 06:00 72 23 114/63 (80) 02/28/21 04:00 98.1 98.1 I & O 02/27/21 02/27/21 02/28/21 15:00 23:00 07:00 Intake Total 400 ml 1630.62 ml 1557.3 ml Output Total 555 ml 545 ml 850 ml Balance -155 ml 1085.62 ml 707.3 ml Physical Exam General: Other (Intubated and sedated) Heart: Regular rate Abdomen: Normal bowel sounds Extremities: No clubbing, No edema Skin: No rashes, No significant lesion Labs Labs: Laboratory Tests Test 02/27/21 10:00 02/27/21 12:27 02/27/21 16:27 02/27/21 18:05 Sodium Level 139 mmol/L (136-145) Potassium Level 3.8 mmol/L (3.5-5.1) Chloride Level 103 mmol/L (98-107) Carbon Dioxide Level 35 mmol/L (21-32) Anion Gap 1 (6-14) Blood Urea Nitrogen 26 mg/dL (7-20) Creatinine 1.0 mg/dL (0.6-1.0) Estimated GFR (Cockcroft-Gault) 60.0 Glucose Level 110 mg/dL (70-99) Calcium Level 8.6 mg/dL (8.5-10.1) Glucose (Fingerstick) 90 mg/dL (70-99) 77 mg/dL (70-99) White Blood Count 14.1 x10^3/uL (4.0-11.0) Red Blood Count 4.08 x10^6/uL (3.50-5.40) Hemoglobin 12.0 g/dL (12.0-15.5) Hematocrit 35.7 % (36.0-47.0) Mean Corpuscular Volume 88 fL (79-100) Mean Corpuscular Hemoglobin 29 pg (25-35) Mean Corpuscular Hemoglobin Concent 34 g/dL (31-37) Red Cell Distribution Width 13.1 % (11.5-14.5) Platelet Count 296 x10^3/uL (140-400) Neutrophils (%) (Auto) 75 % (31-73) Lymphocytes (%) (Auto) 15 % (24-48) Monocytes (%) (Auto) 8 % (0-9) Eosinophils (%) (Auto) 1 % (0-3) Basophils (%) (Auto) 1 % (0-3) Neutrophils # (Auto) 10.6 x10^3/uL (1.8-7.7) Lymphocytes # (Auto) 2.2 x10^3/uL (1.0-4.8) Monocytes # (Auto) 1.2 x10^3/uL (0.0-1.1) Eosinophils # (Auto) 0.2 x10^3/uL (0.0-0.7) Basophils # (Auto) 0.1 x10^3/uL (0.0-0.2) Test 02/27/21 23:43 02/28/21 05:55 02/28/21 06:00 02/28/21 08:30 Glucose (Fingerstick) 64 mg/dL (70-99) 78 mg/dL (70-99) White Blood Count 11.9 x10^3/uL (4.0-11.0) Red Blood Count 3.64 x10^6/uL (3.50-5.40) Hemoglobin 10.7 g/dL (12.0-15.5) Hematocrit 32.0 % (36.0-47.0) Mean Corpuscular Volume 88 fL (79-100) Mean Corpuscular Hemoglobin 29 pg (25-35) Mean Corpuscular Hemoglobin Concent 33 g/dL (31-37) Red Cell Distribution Width 13.4 % (11.5-14.5) Platelet Count 289 x10^3/uL (140-400) Neutrophils (%) (Auto) 65 % (31-73) Lymphocytes (%) (Auto) 25 % (24-48) Monocytes (%) (Auto) 6 % (0-9) Eosinophils (%) (Auto) 3 % (0-3) Basophils (%) (Auto) 0 % (0-3) Neutrophils # (Auto) 7.8 x10^3/uL (1.8-7.7) Lymphocytes # (Auto) 3.0 x10^3/uL (1.0-4.8) Monocytes # (Auto) 0.8 x10^3/uL (0.0-1.1) Eosinophils # (Auto) 0.4 x10^3/uL (0.0-0.7) Basophils # (Auto) 0.0 x10^3/uL (0.0-0.2) Sodium Level 142 mmol/L (136-145) Potassium Level 3.6 mmol/L (3.5-5.1) Chloride Level 107 mmol/L (98-107) Carbon Dioxide Level 33 mmol/L (21-32) Anion Gap 2 (6-14) Blood Urea Nitrogen 22 mg/dL (7-20) Creatinine 1.0 mg/dL (0.6-1.0) Estimated GFR (Cockcroft-Gault) 60.0 Glucose Level 76 mg/dL (70-99) Calcium Level 8.0 mg/dL (8.5-10.1) O2 Saturation 92 % (92-99) Arterial Blood pH 7.47 (7.35-7.45) Arterial Blood pCO2 at Patient Temp 42 mmHg (35-46) Arterial Blood pO2 at Patient Temp 64 mmHg (75-108) Arterial Blood HCO3 30 mmol/L (21-28) Arterial Blood Base Excess 6 mmol/L (-3-3) FiO2 40 Assessment and Plan Assessmemt and Plan Problems Medical Problems: (1) Ketoacidosis Status: Acute Comment Review of Relevant I have reviewed the following items mazin (where applicable) has been applied. Medications: Current Medications Medications (Trade) Dose Ordered Sig/Pepe Route PRN Reason Start Time Stop Time Status Last Admin Dose Admin Dexmedetomidine HCl 400 mcg/ Sodium Chloride 100 ml @ 0 mls/hr CONT PRN IV PER PROTOCOL 02/27/21 09:45 02/28/21 01:29 Alteplase, Recombinant (Cathflo) 2 mg 1X ONCE INT CAT 02/27/21 11:00 02/27/21 11:01 DC 02/27/21 11:20 Alteplase, Recombinant (Cathflo For Central Catheter Clearance) 1 mg 1X ONCE INT CAT 02/27/21 14:30 02/27/21 14:36 DC 02/27/21 15:18 Alteplase, Recombinant (Cathflo For Central Catheter Clearance) 1 mg 1X ONCE INT CAT 02/27/21 14:30 02/27/21 14:36 DC 02/27/21 15:19 Dextrose (Dextrose 50%-Water Syringe) 25 gm 1X ONCE IV 02/28/21 00:00 02/28/21 00:01 DC 02/27/21 23:55 Justifications for Admission Other Justification SANDI ALCARAZ MD Feb 28, 2021 09:37
[2021-02-28] MEDS: INSULIN GLARGINE SYRINGE. SQ SCH ×2 (10:15→21:06)
[2021-02-28] MEDS: PROPOFOL 100 ML IV PRN ×4 (10:20→23:23)
[2021-02-28] MEDS: MIDAZOLAM 100mg/100ml NS BAG 100 ML IV PRN (19:26)
[2021-02-28] MEDS: ATORVASTATIN CALCIUM 40 MG TABLET. PO SCH (21:05)
[2021-03-01] VITALS (24 sets, daily range): BP systolic 80–168; BP diastolic 46–86
[2021-03-01] MEDS: PROPOFOL 100 ML IV PRN ×5 (04:36→22:42)
--- NOTE | 2021-03-01 05:09 | PDOC ---
PULMONARY PROGRESS NOTES DATE: 03/01/21 TIME: 05:09 Subjective Patient with remains on ventilatory support, intubated 02/17/2021, improving oxygenation on 40% and PEEP 5 small ett secretion tachypneac tachycardic on sbt yesterday Sedated fentanyl prop precedex Afebrile Vitals Vital Signs Date Time Temp Pulse Resp B/P (MAP) Pulse Ox O2 Delivery O2 Flow Rate FiO2 03/01/21 05:00 92 22 168/76 (106) 100 Ventilator 03/01/21 04:00 99.3 99.3 02/28/21 23:28 15.0 Comments Visual exam done due to COVID-19. intubated NC AT RRR no accessory muscle use abd obese No skin rash or leg edema. Labs Laboratory Tests Test 02/27/21 05:30 02/27/21 07:50 02/27/21 10:00 02/27/21 12:27 Glucose (Fingerstick) 156 mg/dL (70-99) 90 mg/dL (70-99) O2 Saturation 97 % (92-99) Arterial Blood pH 7.47 (7.35-7.45) Arterial Blood pCO2 at Patient Temp 42 mmHg (35-46) Arterial Blood pO2 at Patient Temp 98 mmHg (75-108) Arterial Blood HCO3 30 mmol/L (21-28) Arterial Blood Base Excess 6 mmol/L (-3-3) FiO2 45 Sodium Level 139 mmol/L (136-145) Potassium Level 3.8 mmol/L (3.5-5.1) Chloride Level 103 mmol/L (98-107) Carbon Dioxide Level 35 mmol/L (21-32) Anion Gap 1 (6-14) Blood Urea Nitrogen 26 mg/dL (7-20) Creatinine 1.0 mg/dL (0.6-1.0) Estimated GFR (Cockcroft-Gault) 60.0 Glucose Level 110 mg/dL (70-99) Calcium Level 8.6 mg/dL (8.5-10.1) Test 02/27/21 16:27 02/27/21 18:05 02/27/21 23:43 02/28/21 05:55 White Blood Count 14.1 x10^3/uL (4.0-11.0) Red Blood Count 4.08 x10^6/uL (3.50-5.40) Hemoglobin 12.0 g/dL (12.0-15.5) Hematocrit 35.7 % (36.0-47.0) Mean Corpuscular Volume 88 fL (79-100) Mean Corpuscular Hemoglobin 29 pg (25-35) Mean Corpuscular Hemoglobin Concent 34 g/dL (31-37) Red Cell Distribution Width 13.1 % (11.5-14.5) Platelet Count 296 x10^3/uL (140-400) Neutrophils (%) (Auto) 75 % (31-73) Lymphocytes (%) (Auto) 15 % (24-48) Monocytes (%) (Auto) 8 % (0-9) Eosinophils (%) (Auto) 1 % (0-3) Basophils (%) (Auto) 1 % (0-3) Neutrophils # (Auto) 10.6 x10^3/uL (1.8-7.7) Lymphocytes # (Auto) 2.2 x10^3/uL (1.0-4.8) Monocytes # (Auto) 1.2 x10^3/uL (0.0-1.1) Eosinophils # (Auto) 0.2 x10^3/uL (0.0-0.7) Basophils # (Auto) 0.1 x10^3/uL (0.0-0.2) Glucose (Fingerstick) 77 mg/dL (70-99) 64 mg/dL (70-99) 78 mg/dL (70-99) Test 02/28/21 06:00 02/28/21 08:30 02/28/21 10:48 02/28/21 17:50 White Blood Count 11.9 x10^3/uL (4.0-11.0) Red Blood Count 3.64 x10^6/uL (3.50-5.40) Hemoglobin 10.7 g/dL (12.0-15.5) Hematocrit 32.0 % (36.0-47.0) Mean Corpuscular Volume 88 fL (79-100) Mean Corpuscular Hemoglobin 29 pg (25-35) Mean Corpuscular Hemoglobin Concent 33 g/dL (31-37) Red Cell Distribution Width 13.4 % (11.5-14.5) Platelet Count 289 x10^3/uL (140-400) Neutrophils (%) (Auto) 65 % (31-73) Lymphocytes (%) (Auto) 25 % (24-48) Monocytes (%) (Auto) 6 % (0-9) Eosinophils (%) (Auto) 3 % (0-3) Basophils (%) (Auto) 0 % (0-3) Neutrophils # (Auto) 7.8 x10^3/uL (1.8-7.7) Lymphocytes # (Auto) 3.0 x10^3/uL (1.0-4.8) Monocytes # (Auto) 0.8 x10^3/uL (0.0-1.1) Eosinophils # (Auto) 0.4 x10^3/uL (0.0-0.7) Basophils # (Auto) 0.0 x10^3/uL (0.0-0.2) Sodium Level 142 mmol/L (136-145) Potassium Level 3.6 mmol/L (3.5-5.1) Chloride Level 107 mmol/L (98-107) Carbon Dioxide Level 33 mmol/L (21-32) Anion Gap 2 (6-14) Blood Urea Nitrogen 22 mg/dL (7-20) Creatinine 1.0 mg/dL (0.6-1.0) Estimated GFR (Cockcroft-Gault) 60.0 Glucose Level 76 mg/dL (70-99) Calcium Level 8.0 mg/dL (8.5-10.1) O2 Saturation 92 % (92-99) Arterial Blood pH 7.47 (7.35-7.45) Arterial Blood pCO2 at Patient Temp 42 mmHg (35-46) Arterial Blood pO2 at Patient Temp 64 mmHg (75-108) Arterial Blood HCO3 30 mmol/L (21-28) Arterial Blood Base Excess 6 mmol/L (-3-3) FiO2 40 Glucose (Fingerstick) 71 mg/dL (70-99) 94 mg/dL (70-99) Test 02/28/21 21:10 02/28/21 23:48 Glucose (Fingerstick) 75 mg/dL (70-99) 89 mg/dL (70-99) Laboratory Tests Test 02/28/21 05:55 02/28/21 06:00 02/28/21 08:30 02/28/21 10:48 Glucose (Fingerstick) 78 mg/dL (70-99) 71 mg/dL (70-99) White Blood Count 11.9 x10^3/uL (4.0-11.0) Red Blood Count 3.64 x10^6/uL (3.50-5.40) Hemoglobin 10.7 g/dL (12.0-15.5) Hematocrit 32.0 % (36.0-47.0) Mean Corpuscular Volume 88 fL (79-100) Mean Corpuscular Hemoglobin 29 pg (25-35) Mean Corpuscular Hemoglobin Concent 33 g/dL (31-37) Red Cell Distribution Width 13.4 % (11.5-14.5) Platelet Count 289 x10^3/uL (140-400) Neutrophils (%) (Auto) 65 % (31-73) Lymphocytes (%) (Auto) 25 % (24-48) Monocytes (%) (Auto) 6 % (0-9) Eosinophils (%) (Auto) 3 % (0-3) Basophils (%) (Auto) 0 % (0-3) Neutrophils # (Auto) 7.8 x10^3/uL (1.8-7.7) Lymphocytes # (Auto) 3.0 x10^3/uL (1.0-4.8) Monocytes # (Auto) 0.8 x10^3/uL (0.0-1.1) Eosinophils # (Auto) 0.4 x10^3/uL (0.0-0.7) Basophils # (Auto) 0.0 x10^3/uL (0.0-0.2) Sodium Level 142 mmol/L (136-145) Potassium Level 3.6 mmol/L (3.5-5.1) Chloride Level 107 mmol/L (98-107) Carbon Dioxide Level 33 mmol/L (21-32) Anion Gap 2 (6-14) Blood Urea Nitrogen 22 mg/dL (7-20) Creatinine 1.0 mg/dL (0.6-1.0) Estimated GFR (Cockcroft-Gault) 60.0 Glucose Level 76 mg/dL (70-99) Calcium Level 8.0 mg/dL (8.5-10.1) O2 Saturation 92 % (92-99) Arterial Blood pH 7.47 (7.35-7.45) Arterial Blood pCO2 at Patient Temp 42 mmHg (35-46) Arterial Blood pO2 at Patient Temp 64 mmHg (75-108) Arterial Blood HCO3 30 mmol/L (21-28) Arterial Blood Base Excess 6 mmol/L (-3-3) FiO2 40 Test 02/28/21 17:50 02/28/21 21:10 02/28/21 23:48 Glucose (Fingerstick) 94 mg/dL (70-99) 75 mg/dL (70-99) 89 mg/dL (70-99) Medications Active Scripts Medications Dose Route/Sig Max Daily Dose Days Date Category Novolog Flexpen (Insulin Aspart) 100 Unit/1 Ml Insuln.pen 3-7 SQ TIDACHC 02/07/21 Reported Lisinopril 5 Mg Tablet 1 Tab PO DAILY 02/07/21 Reported Lantus Solostar (Insulin Glargine,Hum.rec.anlog) 100 Unit/1 Ml Insuln.pen 5 Unit SQ QHS 04/09/15 Reported Atorvastatin Calcium 40 Mg Tablet 40 Mg PO HS 04/09/15 Reported Comments Chest x-ray 02/25/2021 IMPRESSION: Lines and tubes as described above. Slight improvement of the pulmonary infiltrates as described above. No pneumothorax. Electronically signed by: Angelito Lim MD (02/25/2021 6:16 AM) [facility] Impression: 1. Support device positioning as above. 2. Persistent and not significantly changed diffuse airspace infiltrates. Impression . IMPRESSION: 1. Acute hypoxic respiratory failure secondary to COVID-19 viral pneumonia/acute lung injury and early acute respiratory distress syndrome. S/P intubation 02/17/21,--slowly improving 2. Nonsmoker. 3. Abnormal chest x-ray consistent with COVID-19 viral pneumonia.--- Improving 4. Diabetic ketoacidosis as initial presentation, currently better.--resolved 5. Underlying obesity contributing to hypoxia as well. Plan . Updated 03/01/2021 Continue current ventilatory support 18/450/40/5, will decrease sedation sbt when more awake on Precedex/fentanyl/propofol Follow chest x-ray/ABG as needed off steroids as the patient has completed a full 10-day course Continue empiric antibiotics, currently on Zosyn S/P remdesivir for full course Continue tube feeding for nutritional support DVT/GI prophylaxis: Lovenox Discussed with RN and RT Updated 02/28/2021 Continue current ventilatory support 18/450/40/5, patient continues to slowly clinically improve will decrease sedation sbt when more awake on Precedex. Follow chest x-ray/ABG as needed off steroids as the patient has completed a full 10-day course Continue empiric antibiotics, currently on Zosyn S/P remdesivir for full course Continue tube feeding for nutritional support DVT/GI prophylaxis: Lovenox Discussed with RN and RT Updated 02/27/2021 Continue current ventilatory support 18/450/45/6, patient continues to slowly clinically improve Patient did not tolerate reduction in sedation secondary to increased peak airway pressures, nursing reports copious amounts of secretions, will attempt to reduce sedation again today in anticipation for pressure support trial If needed will use Precedex. Likely CPAP trial again today Follow chest x-ray/ABG as needed off steroids as the patient has completed a full 10-day course Continue empiric antibiotics, currently on Zosyn S/P remdesivir for full course Continue tube feeding for nutritional support DVT/GI prophylaxis: Lovenox Discussed with RN and RT Critical Care time 30 minutes Updated 02/26/2021 Continue current ventilatory support 18/450/45/6, patient continues to slowly clinically improve Patient did not tolerate reduction in sedation secondary to increased peak airway pressures, nursing reports copious amounts of secretions, will attempt to reduce sedation again today in anticipation for pressure support trial If needed will use Precedex. Likely CPAP trial today Follow chest x-ray/ABG as needed Aggressive pulmonary hygiene DC steroids as the patient has completed a full 10-day course Continue empiric antibiotics, currently on Zosyn S/P remdesivir for full course Continue tube feeding for nutritional support DVT/GI prophylaxis: Lovenox Discussed with RN and RT Critical Care time 30 minutes Updated 02/25/2021 Continue current ventilatory support 18/450/45/6, patient continues to slowly clinically improve Patient did not tolerate reduction in sedation secondary to increased peak airway pressures, nursing reports copious amounts of secretions, will attempt to reduce sedation again today in anticipation for pressure support trial Follow chest x-ray/ABG as needed Aggressive pulmonary hygiene DC steroids as the patient has completed a full 10-day course Continue empiric antibiotics, currently on Zosyn S/P remdesivir for full course Continue tube feeding for nutritional support DVT/GI prophylaxis: Lovenox Discussed with RN and RT Critical Care time 30 minutes SHERRIE MARMOLEJO MD Mar 01, 2021 05:09
[2021-03-01] MEDS: INSULIN LISPRO 300 UNITS/3 ML VIAL. SQ SCH ×5 (05:30→23:38)
[2021-03-01] MEDS: PIPERACILLIN/TAZOBACTAM 4.5 GM in IV NORMAL SALINE 100ML 100 ML IV SCH ×4 (05:31→23:38)
[2021-03-01 06:12] LABS: BASO % 0 % (0-3); EOS # 0.4 x10^3/uL (0.0-0.7); EOS % 3 % (0-3); HEMATOCRIT 32.6 % (36.0-47.0); LYMPH # 1.7 x10^3/uL (1.0-4.8); LYMPH % 13 % (24-48); MEAN CORPUSCULAR HEMOGLOBIN 30 pg (25-35); MEAN CORPUSCULAR HGB CONC 34 g/dL (31-37); MEAN CORPUSCULAR VOLUME 89 fL (79-100); MONO # 0.8 x10^3/uL (0.0-1.1); MONO % 6 % (0-9); NEUT % 77 % (31-73); PLATELET COUNT 279 x10^3/uL (140-400); RED BLOOD COUNT 3.68 x10^6/uL (3.50-5.40); RED CELL DISTRIBUTION WIDTH 13.2 % (11.5-14.5); WHITE BLOOD COUNT 12.9 x10^3/uL (4.0-11.0)
[2021-03-01 06:24] LABS: CREATININE 0.9 mg/dL (0.6-1.0); GFR 67.7; POTASSIUM 3.6 mmol/L (3.5-5.1)
[2021-03-01 08:44] LABS: BASE EXCESS ABG 5 mmol/L (-3-3); HCO3 ABG 28 mmol/L (21-28); PCO2 ABG 39 mmHg (35-46); PO2 ABG 85 mmHg (75-108); SAT O2 ABG 96 % (92-99)
[2021-03-01 08:47] LABS: FIO2 ABG 40
--- NOTE | 2021-03-01 08:52 | PDOC ---
[facility] [facility] PROGRESS NOTE Date of Service DOS: DATE: 03/01/21 TIME: 08:51 Chief Complaint Chief Complaint COVID-19 positive infection Tractable nausea vomiting DKA Anion gap metabolic acidosis Acute electrolyte derangementhyponatremia, hypochloremia due to volume depletion Hyperglycemia uncontrolled BOB due to vasomotor nephropathy Erythrocytosis Reglan for diabetic gastroparesis Continue Covid measures Patient intubated Pulmonary following SCD for DVT prophylaxis Protonix GI prophylaxis ADA diet Full code Discussed with RN and SW Disposition inpatient management as above Surrogate decision maker is Brian Whitmore History of Present Illness History of Present Illness 46 year old female who presents with nausea/vomiting since 7 AM yesterday morning. Patient states that her recently tested positive for Covid. She states that he "coughed in my face because he thought it was funny." She reports subjective fevers and chills and nausea/vomiting. Denies sore throat, cough, shortness of breath. No chest pain. Does have some upper abdominal discomfort after vomiting, that she attributes to muscular strain. She is not vaccinated for Covid. 02/08/2021 No acute events overnight. Patient seen and examined bedside and resting comfortably. Continues to complain of nausea not able to tolerate any diet at this time. Saturating 98% on room air. Patient's chart, labs, images were reviewed and discussed with RN 02/09/2021: Afebrile, currently breathing on room air. Still with complaints of nausea and vomiting x3 today. States that she has history of similar symptoms that have been mildly improved with IV Dilaudid. Discussed with patient that I will provide IV Dilaudid to help with her nausea, but she will not discharged on this medication. Will obtain 6-minute walk to evaluate oxygen requirements. Upon discharge, I recommend self quarantine for 10 days for resolution of her symptoms. Discussed with patient that she will discharge tomorrow. 02/10/2021: Patient febrile today with T-max 102.2 F. She still admits to nausea, denies any further vomiting. We will continue to provide supportive care and monitor for any recurrent fevers overnight. Patient continues to improve may discharge tomorrow to continue self-isolation. 02/11/2021: Febrile overnight, T-max 102.3 F. She did become hypoxic overnight, currently breathing on 4 L nasal cannula. Also admits to associated vomiting or diarrhea overnight. Discussed with RN, will initiate remdesivir and closely monitor LFTs. We will also treat with IV Decadron, and prophylactic anti biotics. 02/12/2021: Low-grade fever overnight, T-max 99.7. Currently breathing on room air. Will discontinue remdesivir, steroids, and antibiotics; will observe overnight. Still with complaints of vomiting x1 and diarrhea. We will continue to provide supportive care and hope to discharge in the next day or so. 02/13/2021: Afebrile. Still complains of intermittent diarrhea. At the time of my evaluation she was breathing on 6 L nasal cannula; this is somewhat misleading as patient states that she did not feel short of breath but was placed on 6 L by nursing staff overnight. Will have RN reassess her oxygen requirements as I did anticipate discharging today. 02/14/2021: Afebrile, currently breathing on 8 L nasal cannula. There has been some misleading documentation, chart oxygen this patient is requiring. Discussed with RN, will resume remdesivir to complete total of 5 days. Continue to monitor LFTs. Will add steroids, Rocephin, and azithromycin. Continue supportive care. 02/15/2021: Afebrile. Became much more hypoxic overnight, requiring BiPAP. At the time of my evaluation she is still breathing on BiPAP. Consultation was placed to pulmonology. Had discussion with Dr. Myrick about initiating Tocilizumab, but currently there is 1 more person in the ER that would be more deserving. When stocks are replenished, she will be first inline to receive this medication. She is also first-line to be transferred down to ICU. Critical care time 30 minutes spent reviewing labs, reviewing imaging, discussion with Dr. Myrick, and discussion with RN. 02/16/2021 No acute events overnight. Patient becoming more hypoxic saturating 94% and requiring BiPAP. Patient will be transferred to the ICU at this time. For worsening clinical status. Discussed with pulmonary. Patient's chart, labs, images were reviewed and discussed with RN 02/17/21 Transferred to ICU yesterday afternoon. Seen and examined at bedside she remains on 100% FiO2 on BiPAP. Respirations do appear somewhat labored. Suspect intubation may be impending. We will closely monitor. Increase lisinopril to 20 today. Plan of care discussed with bedside RN. 02/18/21 Patient required intubation yesterday afternoon. Saw and examined this morning. She is intubated and sedated. Increase insulin today. Covid protocol ordered. Wean as tolerated. Plan of care discussed with bedside nurse. 02/19/21 Bedside. She remains intubated and sedated. Continue Covid protocol. Wean oxygen sedation as tolerated. Pulmonary following. Plan of care discussed with bedside RN. 02/20/21 Patient seen and examined at bedside. She remains intubated and sedated. No major clinical changes. Continue current treatment. Pulmonary following. Plan of care discussed with bedside RN. 02/21/21 Patient seen and examined at bedside. Remains intubated and sedated date and admission clinical changes. Increase free water flushes today due to hypernatremia. Plan of care discussed with bedside nurse. 02/22/21 Patient seen and examined at bedside. O2 requirement actually improving, although remains intubated. Possible SBT in the coming days. Hypernatremia improving. Plan of care discussed bedside RN. 02/23/2021: Patient remains in ICU on ventilator with FiO2 100%, PEEP 7. Repeat chest x-ray yesterday showed diffuse bilateral pulmonary opacities with no interval improvement. Will discontinue Rocephin and initiate Zosyn. We will continue IV steroids for a full 10-day course (to be completed 02/25/2021). Completed remdesivir. Continue supportive care. Critical care time 30 minutes spent reviewing charts, reviewing imaging, reviewing labs, discussion with RN. 02/24/2021: Afebrile. On vent with FiO2 40%, PEEP 6. Her Coreg has been held due to persistent bradycardia. No documented history of systolic heart failure or previous echocardiogram. Will need to obtain echocardiogram prior to discharge. Continue IV steroids and antibiotics. 02/25/2021: Afebrile. Remains ventilated with FiO2 45%, PEEP 6. Chest x-ray today showed slight improvement of the pulmonary infiltrates, no pneumothorax. Completed 10-day course of IV Decadron. Will initiate slow Solu-Medrol taper. Continue IV Zosyn. Continue supportive care. Will need echocardiogram prior to discharge to evaluate heart failure. Critical care time 30 minutes spent reviewing charts, reviewing imaging, reviewing labs, discussion with RN. 02/26/2021: Afebrile. On vent with FiO2 45%, PEEP 6. Completed 10 days of IV Decadron. Will continue IV Zosyn. Continue supportive care. Critical care time 30 minutes spent reviewing charts, reviewing imaging, reviewing labs, discussion with RN. 02/27/2021: Afebrile. On vent with FiO2 45%, PEEP 6. Completed 10 days of steroids and completed remdesivir. Continue with IV Zosyn. CPAP trial yesterday. Continue NG tube and supportive care. Critical care time 30 minutes spent reviewing charts, reviewing imaging, reviewing labs, discussion with RN. 02/28/2021:. Patient remains on vent with FiO2 40%, PEEP 5. Afebrile. Completed steroids and remdesivir. Some noted hypoglycemia overnight, will de- escalate basal insulin. Continue IV Zosyn. Ventilator management per pulmonology. Continue NG tube and supportive care. Critical care time 30 m inutes spent reviewing charts, reviewing imaging, reviewing labs, discussion with RN. 03/01/2021: On vent with FiO2 40%, PEEP 5. Afebrile. Completed steroids and remdesivir. Blood glucose well controlled. Continue empiric antibiotics with Zosyn. Ventilator management per pulmonology. Continue NG tube and supportive care. Critical care time 30 minutes spent reviewing charts, reviewing imaging, reviewing labs, discussion with RN. Vitals/I&O Vitals/I&O: Vital Signs Date Time Temp Pulse Resp B/P (MAP) Pulse Ox O2 Delivery O2 Flow Rate FiO2 03/01/21 08:26 100 Ventilator 03/01/21 07:59 15.0 03/01/21 05:57 88 20 101/62 (75) 03/01/21 04:00 99.3 99.3 I & O 02/28/21 02/28/21 03/01/21 15:00 23:00 07:00 Intake Total 400 ml 1610 ml 1576 ml Output Total 575 ml 1075 ml 500 ml Balance -175 ml 535 ml 1076 ml Physical Exam General: Other (Intubated and sedated) Heart: Regular rate Abdomen: Normal bowel sounds Extremities: No clubbing, No edema Skin: No rashes, No significant lesion Labs Labs: Laboratory Tests Test 02/28/21 10:48 02/28/21 17:50 02/28/21 21:10 02/28/21 23:48 Glucose (Fingerstick) 71 mg/dL (70-99) 94 mg/dL (70-99) 75 mg/dL (70-99) 89 mg/dL (70-99) Test 03/01/21 05:27 03/01/21 05:50 03/01/21 08:35 Glucose (Fingerstick) 76 mg/dL (70-99) White Blood Count 12.9 x10^3/uL (4.0-11.0) Red Blood Count 3.68 x10^6/uL (3.50-5.40) Hemoglobin 11.0 g/dL (12.0-15.5) Hematocrit 32.6 % (36.0-47.0) Mean Corpuscular Volume 89 fL (79-100) Mean Corpuscular Hemoglobin 30 pg (25-35) Mean Corpuscular Hemoglobin Concent 34 g/dL (31-37) Red Cell Distribution Width 13.2 % (11.5-14.5) Platelet Count 279 x10^3/uL (140-400) Neutrophils (%) (Auto) 77 % (31-73) Lymphocytes (%) (Auto) 13 % (24-48) Monocytes (%) (Auto) 6 % (0-9) Eosinophils (%) (Auto) 3 % (0-3) Basophils (%) (Auto) 0 % (0-3) Neutrophils # (Auto) 10.0 x10^3/uL (1.8-7.7) Lymphocytes # (Auto) 1.7 x10^3/uL (1.0-4.8) Monocytes # (Auto) 0.8 x10^3/uL (0.0-1.1) Eosinophils # (Auto) 0.4 x10^3/uL (0.0-0.7) Basophils # (Auto) 0.0 x10^3/uL (0.0-0.2) Sodium Level 142 mmol/L (136-145) Potassium Level 3.6 mmol/L (3.5-5.1) Chloride Level 108 mmol/L (98-107) Carbon Dioxide Level 30 mmol/L (21-32) Anion Gap 4 (6-14) Blood Urea Nitrogen 19 mg/dL (7-20) Creatinine 0.9 mg/dL (0.6-1.0) Estimated GFR (Cockcroft-Gault) 67.7 Glucose Level 74 mg/dL (70-99) Calcium Level 8.0 mg/dL (8.5-10.1) Triglycerides Level 142 mg/dL (0-150) O2 Saturation 96 % (92-99) Arterial Blood pH 7.48 (7.35-7.45) Arterial Blood pCO2 at Patient Temp 39 mmHg (35-46) Arterial Blood pO2 at Patient Temp 85 mmHg (75-108) Arterial Blood HCO3 28 mmol/L (21-28) Arterial Blood Base Excess 5 mmol/L (-3-3) FiO2 40 Assessment and Plan Assessmemt and Plan Problems Medical Problems: (1) Ketoacidosis Status: Acute Comment Review of Relevant I have reviewed the following items mazin (where applicable) has been applied. Medications: Current Medications Medications (Trade) Dose Ordered Sig/Pepe Route PRN Reason Start Time Stop Time Status Last Admin Dose Admin Insulin Glargine (Lantus Syringe) 20 unit BID SQ 02/28/21 10:00 02/28/21 21:06 Justifications for Admission Other Justification SANDI ALCARAZ MD Mar 01, 2021 08:52
[2021-03-01] MEDS: LISINOPRIL 20 MG TABLET PO SCH (09:00)
[2021-03-01] MEDS: DOCUSATE 100 MG/10 ML SOLUTION. PO SCH ×2 (09:00→20:56)
[2021-03-01] MEDS: FAMOTIDINE 20 MG/2 ML VIAL IVP SCH ×2 (09:28→20:56)
[2021-03-01] MEDS: ENOXAPARIN 40 MG/0.4 ML SYRINGE. SQ SCH ×2 (09:30→20:56)
[2021-03-01] MEDS: DEXMEDETOMIDINE 400 MCG in IV NORMAL SALINE 100ML 96 ML IV PRN (12:56)
[2021-03-01] MEDS ORDERED: DEXTROSE 50% 25 GM / 50ML DISP.SYRIN. IV PRN (13:00)
[2021-03-01] MEDS: MIDAZOLAM 100mg/100ml NS BAG 100 ML IV PRN (14:01)
[2021-03-01] MEDS: ATORVASTATIN CALCIUM 40 MG TABLET. PO SCH (20:56)
[2021-03-01] MEDS: INSULIN GLARGINE SYRINGE. SQ SCH (21:00)
[2021-03-02] VITALS (25 sets, daily range): BP systolic 79–199; BP diastolic 44–88
[2021-03-02] MEDS: PROPOFOL 100 ML IV PRN ×5 (01:24→22:35)
[2021-03-02] MEDS: MIDAZOLAM 100mg/100ml NS BAG 100 ML IV PRN (03:01)
[2021-03-02] MEDS: DEXMEDETOMIDINE 400 MCG in IV NORMAL SALINE 100ML 96 ML IV PRN ×3 (03:02→21:48)
[2021-03-02] MEDS: INSULIN LISPRO 300 UNITS/3 ML VIAL. SQ SCH ×4 (05:46→23:59)
[2021-03-02] MEDS: PIPERACILLIN/TAZOBACTAM 4.5 GM in IV NORMAL SALINE 100ML 100 ML IV SCH ×3 (05:46→16:58)
[2021-03-02 06:05] LABS: BASO % 0 % (0-3); EOS # 0.6 x10^3/uL (0.0-0.7); EOS % 4 % (0-3); HEMATOCRIT 32.6 % (36.0-47.0); HEMOGLOBIN 10.7 g/dL (12.0-15.5); LYMPH # 1.5 x10^3/uL (1.0-4.8); LYMPH % 10 % (24-48); MEAN CORPUSCULAR HEMOGLOBIN 29 pg (25-35); MEAN CORPUSCULAR HGB CONC 33 g/dL (31-37); MEAN CORPUSCULAR VOLUME 89 fL (79-100); MONO # 0.8 x10^3/uL (0.0-1.1); MONO % 5 % (0-9); NEUT # 12.3 x10^3/uL (1.8-7.7); NEUT % 81 % (31-73); PLATELET COUNT 250 x10^3/uL (140-400); RED BLOOD COUNT 3.66 x10^6/uL (3.50-5.40); RED CELL DISTRIBUTION WIDTH 13.5 % (11.5-14.5); WHITE BLOOD COUNT 15.2 x10^3/uL (4.0-11.0)
[2021-03-02 06:12] LABS: CALCIUM 8.1 mg/dL (8.5-10.1); CREATININE 0.9 mg/dL (0.6-1.0); GFR 67.7; POTASSIUM 4.2 mmol/L (3.5-5.1)
--- NOTE | 2021-03-02 06:41 | PDOC ---
PULMONARY PROGRESS NOTES DATE: 03/02/21 TIME: 06:39 Subjective Patient remains on vent support 40% and PEEP of 5 Afebrile overnight No overnight concerns from nursing, nursing reports the patient did not tolerate decreased dose of sedation yesterday Vitals Vital Signs Date Time Temp Pulse Resp B/P (MAP) Pulse Ox O2 Delivery O2 Flow Rate FiO2 03/02/21 06:00 60 19 142/73 (96) 100 Ventilator 03/02/21 05:49 15.0 03/02/21 04:00 98.7 98.7 Comments Visual exam done due to COVID-19. intubated NC AT RRR no accessory muscle use abd obese No skin rash or leg edema. Labs Laboratory Tests Test 02/28/21 08:30 02/28/21 10:48 02/28/21 17:50 02/28/21 21:10 O2 Saturation 92 % (92-99) Arterial Blood pH 7.47 (7.35-7.45) Arterial Blood pCO2 at Patient Temp 42 mmHg (35-46) Arterial Blood pO2 at Patient Temp 64 mmHg (75-108) Arterial Blood HCO3 30 mmol/L (21-28) Arterial Blood Base Excess 6 mmol/L (-3-3) FiO2 40 Glucose (Fingerstick) 71 mg/dL (70-99) 94 mg/dL (70-99) 75 mg/dL (70-99) Test 02/28/21 23:48 03/01/21 05:27 03/01/21 05:50 03/01/21 08:35 Glucose (Fingerstick) 89 mg/dL (70-99) 76 mg/dL (70-99) White Blood Count 12.9 x10^3/uL (4.0-11.0) Red Blood Count 3.68 x10^6/uL (3.50-5.40) Hemoglobin 11.0 g/dL (12.0-15.5) Hematocrit 32.6 % (36.0-47.0) Mean Corpuscular Volume 89 fL (79-100) Mean Corpuscular Hemoglobin 30 pg (25-35) Mean Corpuscular Hemoglobin Concent 34 g/dL (31-37) Red Cell Distribution Width 13.2 % (11.5-14.5) Platelet Count 279 x10^3/uL (140-400) Neutrophils (%) (Auto) 77 % (31-73) Lymphocytes (%) (Auto) 13 % (24-48) Monocytes (%) (Auto) 6 % (0-9) Eosinophils (%) (Auto) 3 % (0-3) Basophils (%) (Auto) 0 % (0-3) Neutrophils # (Auto) 10.0 x10^3/uL (1.8-7.7) Lymphocytes # (Auto) 1.7 x10^3/uL (1.0-4.8) Monocytes # (Auto) 0.8 x10^3/uL (0.0-1.1) Eosinophils # (Auto) 0.4 x10^3/uL (0.0-0.7) Basophils # (Auto) 0.0 x10^3/uL (0.0-0.2) Sodium Level 142 mmol/L (136-145) Potassium Level 3.6 mmol/L (3.5-5.1) Chloride Level 108 mmol/L (98-107) Carbon Dioxide Level 30 mmol/L (21-32) Anion Gap 4 (6-14) Blood Urea Nitrogen 19 mg/dL (7-20) Creatinine 0.9 mg/dL (0.6-1.0) Estimated GFR (Cockcroft-Gault) 67.7 Glucose Level 74 mg/dL (70-99) Calcium Level 8.0 mg/dL (8.5-10.1) Triglycerides Level 142 mg/dL (0-150) O2 Saturation 96 % (92-99) Arterial Blood pH 7.48 (7.35-7.45) Arterial Blood pCO2 at Patient Temp 39 mmHg (35-46) Arterial Blood pO2 at Patient Temp 85 mmHg (75-108) Arterial Blood HCO3 28 mmol/L (21-28) Arterial Blood Base Excess 5 mmol/L (-3-3) FiO2 40 Test 03/01/21 12:44 03/01/21 13:20 03/01/21 17:40 03/01/21 21:03 Glucose (Fingerstick) 67 mg/dL (70-99) 94 mg/dL (70-99) 71 mg/dL (70-99) 84 mg/dL (70-99) Test 03/01/21 23:35 03/02/21 05:41 03/02/21 05:45 Glucose (Fingerstick) 122 mg/dL (70-99) 141 mg/dL (70-99) White Blood Count 15.2 x10^3/uL (4.0-11.0) Red Blood Count 3.66 x10^6/uL (3.50-5.40) Hemoglobin 10.7 g/dL (12.0-15.5) Hematocrit 32.6 % (36.0-47.0) Mean Corpuscular Volume 89 fL (79-100) Mean Corpuscular Hemoglobin 29 pg (25-35) Mean Corpuscular Hemoglobin Concent 33 g/dL (31-37) Red Cell Distribution Width 13.5 % (11.5-14.5) Platelet Count 250 x10^3/uL (140-400) Neutrophils (%) (Auto) 81 % (31-73) Lymphocytes (%) (Auto) 10 % (24-48) Monocytes (%) (Auto) 5 % (0-9) Eosinophils (%) (Auto) 4 % (0-3) Basophils (%) (Auto) 0 % (0-3) Neutrophils # (Auto) 12.3 x10^3/uL (1.8-7.7) Lymphocytes # (Auto) 1.5 x10^3/uL (1.0-4.8) Monocytes # (Auto) 0.8 x10^3/uL (0.0-1.1) Eosinophils # (Auto) 0.6 x10^3/uL (0.0-0.7) Basophils # (Auto) 0.0 x10^3/uL (0.0-0.2) Sodium Level 143 mmol/L (136-145) Potassium Level 4.2 mmol/L (3.5-5.1) Chloride Level 107 mmol/L (98-107) Carbon Dioxide Level 30 mmol/L (21-32) Anion Gap 6 (6-14) Blood Urea Nitrogen 16 mg/dL (7-20) Creatinine 0.9 mg/dL (0.6-1.0) Estimated GFR (Cockcroft-Gault) 67.7 Glucose Level 140 mg/dL (70-99) Calcium Level 8.1 mg/dL (8.5-10.1) Laboratory Tests Test 03/01/21 08:35 03/01/21 12:44 03/01/21 13:20 03/01/21 17:40 O2 Saturation 96 % (92-99) Arterial Blood pH 7.48 (7.35-7.45) Arterial Blood pCO2 at Patient Temp 39 mmHg (35-46) Arterial Blood pO2 at Patient Temp 85 mmHg (75-108) Arterial Blood HCO3 28 mmol/L (21-28) Arterial Blood Base Excess 5 mmol/L (-3-3) FiO2 40 Glucose (Fingerstick) 67 mg/dL (70-99) 94 mg/dL (70-99) 71 mg/dL (70-99) Test 03/01/21 21:03 03/01/21 23:35 03/02/21 05:41 03/02/21 05:45 Glucose (Fingerstick) 84 mg/dL (70-99) 122 mg/dL (70-99) 141 mg/dL (70-99) White Blood Count 15.2 x10^3/uL (4.0-11.0) Red Blood Count 3.66 x10^6/uL (3.50-5.40) Hemoglobin 10.7 g/dL (12.0-15.5) Hematocrit 32.6 % (36.0-47.0) Mean Corpuscular Volume 89 fL (79-100) Mean Corpuscular Hemoglobin 29 pg (25-35) Mean Corpuscular Hemoglobin Concent 33 g/dL (31-37) Red Cell Distribution Width 13.5 % (11.5-14.5) Platelet Count 250 x10^3/uL (140-400) Neutrophils (%) (Auto) 81 % (31-73) Lymphocytes (%) (Auto) 10 % (24-48) Monocytes (%) (Auto) 5 % (0-9) Eosinophils (%) (Auto) 4 % (0-3) Basophils (%) (Auto) 0 % (0-3) Neutrophils # (Auto) 12.3 x10^3/uL (1.8-7.7) Lymphocytes # (Auto) 1.5 x10^3/uL (1.0-4.8) Monocytes # (Auto) 0.8 x10^3/uL (0.0-1.1) Eosinophils # (Auto) 0.6 x10^3/uL (0.0-0.7) Basophils # (Auto) 0.0 x10^3/uL (0.0-0.2) Sodium Level 143 mmol/L (136-145) Potassium Level 4.2 mmol/L (3.5-5.1) Chloride Level 107 mmol/L (98-107) Carbon Dioxide Level 30 mmol/L (21-32) Anion Gap 6 (6-14) Blood Urea Nitrogen 16 mg/dL (7-20) Creatinine 0.9 mg/dL (0.6-1.0) Estimated GFR (Cockcroft-Gault) 67.7 Glucose Level 140 mg/dL (70-99) Calcium Level 8.1 mg/dL (8.5-10.1) Medications Active Scripts Medications Dose Route/Sig Max Daily Dose Days Date Category Novolog Flexpen (Insulin Aspart) 100 Unit/1 Ml Insuln.pen 3-7 SQ TIDACHC 02/07/21 Reported Lisinopril 5 Mg Tablet 1 Tab PO DAILY 02/07/21 Reported Lantus Solostar (Insulin Glargine,Hum.rec.anlog) 100 Unit/1 Ml Insuln.pen 5 Unit SQ QHS 04/09/15 Reported Atorvastatin Calcium 40 Mg Tablet 40 Mg PO HS 04/09/15 Reported Comments Chest x-ray 02/25/2021 IMPRESSION: Lines and tubes as described above. Slight improvement of the pulmonary infiltrates as described above. No pneumothorax. Electronically signed by: Angelito Lim MD (02/25/2021 6:16 AM) [facility] CXR 02/20 Impression: 1. Support device positioning as above. 2. Persistent and not significantly changed diffuse airspace infiltrates. Impression . IMPRESSION: 1. Acute hypoxic respiratory failure secondary to COVID-19 viral pneumonia/acute lung injury and early acute respiratory distress syndrome. S/P intubation 02/17/21,--slowly improving 2. Nonsmoker. 3. Abnormal chest x-ray consistent with COVID-19 viral pneumonia.--- Improving 4. Diabetic ketoacidosis as initial presentation, currently better.--resolved 5. Underlying obesity contributing to hypoxia as well. Plan . Updated 03/02/2021 Continue current ventilatory support 18/450/40/5, Wean/DC sedation, and proceed with pressure support trial If continues to fail off sedation, then we will need tracheostomy. Follow chest x-ray/ABG as needed Continue empiric antibiotics, currently on Zosyn, started on 02/23/2021 S/P remdesivir for full course, has also completed full course of steroids Continue tube feeding for nutritional support Diabetes per PCP DVT/GI prophylaxis: Lovenox Discussed with RN and RT Critical care time 30 minutes Updated 03/01/2021 Continue current ventilatory support 18/450/40/5, will decrease sedation sbt when more awake on Precedex/fentanyl/propofol Follow chest x-ray/ABG as needed off steroids as the patient has completed a full 10-day course Continue empiric antibiotics, currently on Zosyn S/P remdesivir for full course Continue tube feeding for nutritional support DVT/GI prophylaxis: Lovenox Discussed with RN and RT EMILY POSADA MD Mar 02, 2021 06:41
--- NOTE | 2021-03-02 08:39 | RAD ---
XR CHEST 1V 03/02/2021 Reason: RF Comparison: Chest radiograph 02/25/2021 Technique: AP portable semierect upright radiograph chest Findings: Stable and acceptable position of the endotracheal tube, right PICC and nasogastric tube. No signific ant change in reticular and patchy bilateral opacities. The cardiomediastinal silhouette is stable. N o pleural effusion or pneumothorax. Impression: 1. Stable lines and tubes 2. No significant interval change in mixed interstitial and airspace disease. Electronically signed by: Adam Larose (03/02/2021 8:37 AM) [id number]
[2021-03-02] MEDS: DOCUSATE 100 MG/10 ML SOLUTION. PO SCH ×2 (09:00→21:01)
[2021-03-02] MEDS: LISINOPRIL 20 MG TABLET PO SCH (09:00)
[2021-03-02 09:08] LABS: BASE EXCESS ABG 2 mmol/L (-3-3); HCO3 ABG 26 mmol/L (21-28); PCO2 ABG 38 mmHg (35-46); PO2 ABG 94 mmHg (75-108); SAT O2 ABG 96 % (92-99)
[2021-03-02 09:11] LABS: FIO2 ABG 40
[2021-03-02] MEDS: ENOXAPARIN 40 MG/0.4 ML SYRINGE. SQ SCH ×2 (09:55→21:02)
[2021-03-02] MEDS: FAMOTIDINE 20 MG/2 ML VIAL IVP SCH ×2 (09:55→21:00)
--- NOTE | 2021-03-02 12:57 | PDOC ---
[employer] PROGRESS NOTE Date of Service DOS: DATE: 03/02/21 TIME: 12:53 Chief Complaint Chief Complaint Hypotension COVID-19 positive infection Tractable nausea vomiting DKA Anion gap metabolic acidosis Acute electrolyte derangementhyponatremia, hypochloremia due to volume depletion Hyperglycemia uncontrolled BOB due to vasomotor nephropathy Erythrocytosis Reglan for diabetic gastroparesis Continue Covid measures Patient intubated Pulmonary following SCD for DVT prophylaxis Protonix GI prophylaxis ADA diet Full code Discussed with RN and SW Disposition inpatient management as above Surrogate decision maker is Brian Whitmore History of Present Illness History of Present Illness 46 year old female who presents with nausea/vomiting since 7 AM yesterday morning. Patient states that her recently tested positive for Covid. She states that he "coughed in my face because he thought it was funny." She reports subjective fevers and chills and nausea/vomiting. Denies sore throat, cough, shortness of breath. No chest pain. Does have some upper abdominal discomfort after vomiting, that she attributes to muscular strain. She is not vaccinated for Covid. 02/08/2021 No acute events overnight. Patient seen and examined bedside and resting comfortably. Continues to complain of nausea not able to tolerate any diet at this time. Saturating 98% on room air. Patient's chart, labs, images were reviewed and discussed with RN 02/09/2021: Afebrile, currently breathing on room air. Still with complaints of nausea and vomiting x3 today. States that she has history of similar symptoms that have been mildly improved with IV Dilaudid. Discussed with patient that I will provide IV Dilaudid to help with her nausea, but she will not discharged on this medication. Will obtain 6-minute walk to evaluate oxygen requirements. Upon discharge, I recommend self quarantine for 10 days for resolution of her symptoms. Discussed with patient that she will discharge tomorrow. 02/10/2021: Patient febrile today with T-max 102.2 F. She still admits to nausea, denies any further vomiting. We will continue to provide supportive care and monitor for any recurrent fevers overnight. Patient continues to improve may discharge tomorrow to continue self-isolation. 02/11/2021: Febrile overnight, T-max 102.3 F. She did become hypoxic overnight, currently breathing on 4 L nasal cannula. Also admits to associated vomiting or diarrhea overnight. Discussed with RN, will initiate remdesivir and closely monitor LFTs. We will also treat with IV Decadron, and prophylactic antibiotics. 02/12/2021: Low-grade fever overnight, T-max 99.7. Currently breathing on room air. Will discontinue remdesivir, steroids, and antibiotics; will observe overnight. Still with complaints of vomiting x1 and diarrhea. We will continue to provide supportive care and hope to discharge in the next day or so. 02/13/2021: Afebrile. Still complains of intermittent diarrhea. At the time of my evaluation she was breathing on 6 L nasal cannula; this is somewhat misleading as patient states that she did not feel short of breath but was placed on 6 L by nursing staff overnight. Will have RN reassess her oxygen requirements as I did anticipate discharging today. 02/14/2021: Afebrile, currently breathing on 8 L nasal cannula. There has been some misleading documentation, chart oxygen this patient is requiring. Discussed with RN, will resume remdesivir to complete total of 5 days. Continue to monitor LFTs. Will add steroids, Rocephin, and azithromycin. Continue supportive care. 02/15/2021: Afebrile. Became much more hypoxic overnight, requiring BiPAP. At the time of my evaluation she is still breathing on BiPAP. Consultation was placed to pulmonology. Had discussion with Dr. Myrick about initiating Tocilizumab, but currently there is 1 more person in the ER that would be more deserving. When stocks are replenished, she will be first inline to receive this medication. She is also first-line to be transferred down to ICU. Critical care time 30 minutes spent reviewing labs, reviewing imaging, discussio n with Dr. Myrick, and discussion with RN. 02/16/2021 No acute events overnight. Patient becoming more hypoxic saturating 94% and requiring BiPAP. Patient will be transferred to the ICU at this time. For worsening clinical status. Discussed with pulmonary. Patient's chart, labs, images were reviewed and discussed with RN 02/17/21 Transferred to ICU yesterday afternoon. Seen and examined at bedside she remains on 100% FiO2 on BiPAP. Respirations do appear somewhat labored. Suspect intubation may be impending. We will closely monitor. Increase lisinopril to 20 today. Plan of care discussed with bedside RN. 02/18/21 Patient required intubation yesterday afternoon. Saw and examined this morning. She is intubated and sedated. Increase insulin today. Covid protocol ordered. Wean as tolerated. Plan of care discussed with bedside nurse. 02/19/21 Bedside. She remains intubated and sedated. Continue Covid protocol. Wean oxygen sedation as tolerated. Pulmonary following. Plan of care discussed with bedside RN. 02/20/21 Patient seen and examined at bedside. She remains intubated and sedated. No major clinical changes. Continue current treatment. Pulmonary following. Plan of care discussed with bedside RN. 02/21/21 Patient seen and examined at bedside. Remains intubated and sedated date and admission clinical changes. Increase free water flushes today due to hypernatremia. Plan of care discussed with bedside nurse. 02/22/21 Patient seen and examined at bedside. O2 requirement actually improving, althou gh remains intubated. Possible SBT in the coming days. Hypernatremia improving. Plan of care discussed bedside RN. 02/23/2021: Patient remains in ICU on ventilator with FiO2 100%, PEEP 7. Repeat chest x-ray yesterday showed diffuse bilateral pulmonary opacities with no interval improvement. Will discontinue Rocephin and initiate Zosyn. We will continue IV steroids for a full 10-day course (to be completed 02/25/2021). Completed remdesivir. Continue supportive care. Critical care time 30 minutes spent reviewing charts, reviewing imaging, reviewing labs, discussion with RN. 02/24/2021: Afebrile. On vent with FiO2 40%, PEEP 6. Her Coreg has been held due to persistent bradycardia. No documented history of systolic heart failure or previous echocardiogram. Will need to obtain echocardiogram prior to discharge. Continue IV steroids and antibiotics. 02/25/2021: Afebrile. Remains ventilated with FiO2 45%, PEEP 6. Chest x-ray today showed slight improvement of the pulmonary infiltrates, no pneumothorax. Completed 10-day course of IV Decadron. Will initiate slow Solu-Medrol taper. Continue IV Zosyn. Continue supportive care. Will need echocardiogram prior to discharge to evaluate heart failure. Critical care time 30 minutes spent reviewing charts, reviewing imaging, reviewing labs, discussion with RN. 02/26/2021: Afebrile. On vent with FiO2 45%, PEEP 6. Completed 10 days of IV Decadron. Will continue IV Zosyn. Continue supportive care. Critical care time 30 minutes spent reviewing charts, reviewing imaging, reviewing labs, discussion with RN. 02/27/2021: Afebrile. On vent with FiO2 45%, PEEP 6. Completed 10 days of stero ids and completed remdesivir. Continue with IV Zosyn. CPAP trial yesterday. Continue NG tube and supportive care. Critical care time 30 minutes spent reviewing charts, reviewing imaging, reviewing labs, discussion with RN. 02/28/2021:. Patient remains on vent with FiO2 40%, PEEP 5. Afebrile. Completed steroids and remdesivir. Some noted hypoglycemia overnight, will de-escalate basal insulin. Continue IV Zosyn. Ventilator management per pulmonology. Continue NG tube and supportive care. Critical care time 30 minutes spent reviewing charts, reviewing imaging, reviewing labs, discussion with RN. 03/01/2021: On vent with FiO2 40%, PEEP 5. Afebrile. Completed steroids and remdesivir. Blood glucose well controlled. Continue empiric antibiotics with Zosyn. Ventilator management per pulmonology. Continue NG tube and supportive care. Critical care time 30 minutes spent reviewing charts, reviewing imaging, reviewing labs, discussion with RN. 03/02/2021 No acute events overnight. Patient hypotensive the morning due to oversedation. Will wean off sedation and keep antihypertensive medications on board. Currently saturating 100% on vent settings of 18/450/40/5. Will attempt spontaneous breathing trial today to see how patient does. Defer this management to pulmonary. Patient's chart, labs, images were reviewed and discussed with RN A total of 36 minutes of critical care time was spent in reviewing chart, labs, and images. Discussed with RN and SW. Vitals/I&O Vitals/I&O: Vital Signs Date Time Temp Pulse Resp B/P (MAP) Pulse Ox O2 Delivery O2 Flow Rate FiO2 03/02/21 10:33 53 18 90/47 (61) 100 Ventilator 03/02/21 08:29 15.0 03/02/21 04:00 98.7 98.7 I & O 03/01/21 03/01/21 03/02/21 15:00 23:00 07:00 Intake Total 500 ml 1926 ml 1740 ml Output Total 450 ml 1050 ml 625 ml Balance 50 ml 876 ml 1115 ml Physical Exam General: Other (Intubated and sedated) Heart: Regular rate Abdomen: Normal bowel sounds Extremities: No clubbing, No edema Skin: No rashes, No significant lesion Labs Labs: Laboratory Tests Test 03/01/21 13:20 03/01/21 17:40 03/01/21 21:03 03/01/21 23:35 Glucose (Fingerstick) 94 mg/dL (70-99) 71 mg/dL (70-99) 84 mg/dL (70-99) 122 mg/dL (70-99) Test 03/02/21 05:41 03/02/21 05:45 03/02/21 08:00 Glucose (Fingerstick) 141 mg/dL (70-99) White Blood Count 15.2 x10^3/uL (4.0-11.0) Red Blood Count 3.66 x10^6/uL (3.50-5.40) Hemoglobin 10.7 g/dL (12.0-15.5) Hematocrit 32.6 % (36.0-47.0) Mean Corpuscular Volume 89 fL (79-100) Mean Corpuscular Hemoglobin 29 pg (25-35) Mean Corpuscular Hemoglobin Concent 33 g/dL (31-37) Red Cell Distribution Width 13.5 % (11.5-14.5) Platelet Count 250 x10^3/uL (140-400) Neutrophils (%) (Auto) 81 % (31-73) Lymphocytes (%) (Auto) 10 % (24-48) Monocytes (%) (Auto) 5 % (0-9) Eosinophils (%) (Auto) 4 % (0-3) Basophils (%) (Auto) 0 % (0-3) Neutrophils # (Auto) 12.3 x10^3/uL (1.8-7.7) Lymphocytes # (Auto) 1.5 x10^3/uL (1.0-4.8) Monocytes # (Auto) 0.8 x10^3/uL (0.0-1.1) Eosinophils # (Auto) 0.6 x10^3/uL (0.0-0.7) Basophils # (Auto) 0.0 x10^3/uL (0.0-0.2) Sodium Level 143 mmol/L (136-145) Potassium Level 4.2 mmol/L (3.5-5.1) Chloride Level 107 mmol/L (98-107) Carbon Dioxide Level 30 mmol/L (21-32) Anion Gap 6 (6-14) Blood Urea Nitrogen 16 mg/dL (7-20) Creatinine 0.9 mg/dL (0.6-1.0) Estimated GFR (Cockcroft-Gault) 67.7 Glucose Level 140 mg/dL (70-99) Calcium Level 8.1 mg/dL (8.5-10.1) O2 Saturation 96 % (92-99) Arterial Blood pH 7.46 (7.35-7.45) Arterial Blood pCO2 at Patient Temp 38 mmHg (35-46) Arterial Blood pO2 at Patient Temp 94 mmHg (75-108) Arterial Blood HCO3 26 mmol/L (21-28) Arterial Blood Base Excess 2 mmol/L (-3-3) FiO2 40 Assessment and Plan Assessmemt and Plan Problems Medical Problems: (1) Ketoacidosis Status: Acute Comment Review of Relevant I have reviewed the following items mazin (where applicable) has been applied. Medications: Current Medications Medications (Trade) Dose Ordered Sig/Pepe Route PRN Reason Start Time Stop Time Status Last Admin Dose Admin Dextrose (Dextrose 50%-Water Syringe) 12.5 gm PRN Q15MIN PRN IV SEE COMMENTS 03/01/21 13:00 03/01/21 12:55 Justifications for Admission Other Justification SRIKANTH DAVIS MD Mar 02, 2021 12:56
--- NOTE | 2021-03-02 16:07 | NUR ---
SS following up with discharge planning. SS reviewed pt chart and discussed with pt RN. Pt is currently on the vent at 40%. COVID19 positive. Pt on IV Zosyn. Pt on Precedex and Fentanyl. Tube feeds. Self pay. Med Assist following. SS will continue to follow for discharge planning.
[2021-03-02] MEDS: ATORVASTATIN CALCIUM 40 MG TABLET. PO SCH (21:00)
[2021-03-02] MEDS: INSULIN GLARGINE SYRINGE. SQ SCH (21:00)
[2021-03-02] MEDS: NYSTATIN TOPICAL POWDER 15GM BOTTLE. TP SCH (21:00)
[2021-03-03] VITALS (24 sets, daily range): BP systolic 80–215; BP diastolic 46–121
[2021-03-03] MEDS: PROPOFOL 100 ML IV PRN ×5 (01:38→22:38)
[2021-03-03] MEDS: DEXMEDETOMIDINE 400 MCG in IV NORMAL SALINE 100ML 96 ML IV PRN ×4 (03:46→22:42)
[2021-03-03] MEDS: PIPERACILLIN/TAZOBACTAM 4.5 GM in IV NORMAL SALINE 100ML 100 ML IV SCH ×5 (05:26→23:52)
[2021-03-03] MEDS: INSULIN LISPRO 300 UNITS/3 ML VIAL. SQ SCH ×3 (05:26→12:00)
[2021-03-03 05:44] LABS: CALCIUM 8.3 mg/dL (8.5-10.1); CREATININE 0.8 mg/dL (0.6-1.0); GFR 77.6; POTASSIUM 4.3 mmol/L (3.5-5.1)
[2021-03-03 06:01] LABS: BASO # 0.1 x10^3/uL (0.0-0.2); BASO % 1 % (0-3); EOS # 0.6 x10^3/uL (0.0-0.7); EOS % 5 % (0-3); HEMATOCRIT 31.2 % (36.0-47.0); HEMOGLOBIN 10.3 g/dL (12.0-15.5); LYMPH # 1.6 x10^3/uL (1.0-4.8); LYMPH % 13 % (24-48); MEAN CORPUSCULAR HEMOGLOBIN 30 pg (25-35); MEAN CORPUSCULAR HGB CONC 33 g/dL (31-37); MEAN CORPUSCULAR VOLUME 90 fL (79-100); MONO # 0.7 x10^3/uL (0.0-1.1); MONO % 6 % (0-9); NEUT # 8.7 x10^3/uL (1.8-7.7); NEUT % 75 % (31-73); PLATELET COUNT 234 x10^3/uL (140-400); RED BLOOD COUNT 3.48 x10^6/uL (3.50-5.40); RED CELL DISTRIBUTION WIDTH 13.6 % (11.5-14.5); WHITE BLOOD COUNT 11.6 x10^3/uL (4.0-11.0)
[2021-03-03 07:46] LABS: BASE EXCESS ABG 2 mmol/L (-3-3); HCO3 ABG 26 mmol/L (21-28); PCO2 ABG 39 mmHg (35-46); PO2 ABG 88 mmHg (75-108); SAT O2 ABG 96 % (92-99)
[2021-03-03 08:11] LABS: FIO2 ABG 40
[2021-03-03] MEDS: LISINOPRIL 20 MG TABLET PO SCH (09:00)
[2021-03-03] MEDS: DOCUSATE 100 MG/10 ML SOLUTION. PO SCH ×2 (09:00→21:15)
[2021-03-03] MEDS: NYSTATIN TOPICAL POWDER 15GM BOTTLE. TP SCH ×2 (09:00→21:00)
[2021-03-03] MEDS: FAMOTIDINE 20 MG/2 ML VIAL IVP SCH ×2 (10:02→21:00)
[2021-03-03] MEDS: ENOXAPARIN 40 MG/0.4 ML SYRINGE. SQ SCH ×2 (10:03→21:15)
--- NOTE | 2021-03-03 10:46 | PDOC ---
PULMONARY PROGRESS NOTES DATE: 03/03/21 TIME: 10:44 Subjective Patient remains on vent support 40% and PEEP of 5 Afebrile overnight No overnight concerns from nursing, Vitals Vital Signs Date Time Temp Pulse Resp B/P (MAP) Pulse Ox O2 Delivery O2 Flow Rate FiO2 03/03/21 09:35 100 Ventilator 03/03/21 06:01 52 20 142/80 (100) 03/03/21 04:36 15.0 03/03/21 04:00 98.1 98.1 Comments Visual exam done due to COVID-19. intubated NC AT RRR no accessory muscle use abd obese No skin rash or leg edema. Labs Laboratory Tests Test 03/01/21 12:44 03/01/21 13:20 03/01/21 17:40 03/01/21 21:03 Glucose (Fingerstick) 67 mg/dL (70-99) 94 mg/dL (70-99) 71 mg/dL (70-99) 84 mg/dL (70-99) Test 03/01/21 23:35 03/02/21 05:41 03/02/21 05:45 03/02/21 08:00 Glucose (Fingerstick) 122 mg/dL (70-99) 141 mg/dL (70-99) White Blood Count 15.2 x10^3/uL (4.0-11.0) Red Blood Count 3.66 x10^6/uL (3.50-5.40) Hemoglobin 10.7 g/dL (12.0-15.5) Hematocrit 32.6 % (36.0-47.0) Mean Corpuscular Volume 89 fL (79-100) Mean Corpuscular Hemoglobin 29 pg (25-35) Mean Corpuscular Hemoglobin Concent 33 g/dL (31-37) Red Cell Distribution Width 13.5 % (11.5-14.5) Platelet Count 250 x10^3/uL (140-400) Neutrophils (%) (Auto) 81 % (31-73) Lymphocytes (%) (Auto) 10 % (24-48) Monocytes (%) (Auto) 5 % (0-9) Eosinophils (%) (Auto) 4 % (0-3) Basophils (%) (Auto) 0 % (0-3) Neutrophils # (Auto) 12.3 x10^3/uL (1.8-7.7) Lymphocytes # (Auto) 1.5 x10^3/uL (1.0-4.8) Monocytes # (Auto) 0.8 x10^3/uL (0.0-1.1) Eosinophils # (Auto) 0.6 x10^3/uL (0.0-0.7) Basophils # (Auto) 0.0 x10^3/uL (0.0-0.2) Sodium Level 143 mmol/L (136-145) Potassium Level 4.2 mmol/L (3.5-5.1) Chloride Level 107 mmol/L (98-107) Carbon Dioxide Level 30 mmol/L (21-32) Anion Gap 6 (6-14) Blood Urea Nitrogen 16 mg/dL (7-20) Creatinine 0.9 mg/dL (0.6-1.0) Estimated GFR (Cockcroft-Gault) 67.7 Glucose Level 140 mg/dL (70-99) Calcium Level 8.1 mg/dL (8.5-10.1) O2 Saturation 96 % (92-99) Arterial Blood pH 7.46 (7.35-7.45) Arterial Blood pCO2 at Patient Temp 38 mmHg (35-46) Arterial Blood pO2 at Patient Temp 94 mmHg (75-108) Arterial Blood HCO3 26 mmol/L (21-28) Arterial Blood Base Excess 2 mmol/L (-3-3) FiO2 40 Test 03/02/21 12:52 03/02/21 16:56 03/02/21 21:05 03/02/21 23:54 Glucose (Fingerstick) 136 mg/dL (70-99) 119 mg/dL (70-99) 148 mg/dL (70-99) 141 mg/dL (70-99) Test 03/03/21 05:24 03/03/21 05:30 03/03/21 07:55 Glucose (Fingerstick) 192 mg/dL (70-99) White Blood Count 11.6 x10^3/uL (4.0-11.0) Red Blood Count 3.48 x10^6/uL (3.50-5.40) Hemoglobin 10.3 g/dL (12.0-15.5) Hematocrit 31.2 % (36.0-47.0) Mean Corpuscular Volume 90 fL (79-100) Mean Corpuscular Hemoglobin 30 pg (25-35) Mean Corpuscular Hemoglobin Concent 33 g/dL (31-37) Red Cell Distribution Width 13.6 % (11.5-14.5) Platelet Count 234 x10^3/uL (140-400) Neutrophils (%) (Auto) 75 % (31-73) Lymphocytes (%) (Auto) 13 % (24-48) Monocytes (%) (Auto) 6 % (0-9) Eosinophils (%) (Auto) 5 % (0-3) Basophils (%) (Auto) 1 % (0-3) Neutrophils # (Auto) 8.7 x10^3/uL (1.8-7.7) Lymphocytes # (Auto) 1.6 x10^3/uL (1.0-4.8) Monocytes # (Auto) 0.7 x10^3/uL (0.0-1.1) Eosinophils # (Auto) 0.6 x10^3/uL (0.0-0.7) Basophils # (Auto) 0.1 x10^3/uL (0.0-0.2) Sodium Level 138 mmol/L (136-145) Potassium Level 4.3 mmol/L (3.5-5.1) Chloride Level 106 mmol/L (98-107) Carbon Dioxide Level 26 mmol/L (21-32) Anion Gap 6 (6-14) Blood Urea Nitrogen 14 mg/dL (7-20) Creatinine 0.8 mg/dL (0.6-1.0) Estimated GFR (Cockcroft-Gault) 77.6 Glucose Level 203 mg/dL (70-99) Calcium Level 8.3 mg/dL (8.5-10.1) O2 Saturation 96 % (92-99) Arterial Blood pH 7.44 (7.35-7.45) Arterial Blood pCO2 at Patient Temp 39 mmHg (35-46) Arterial Blood pO2 at Patient Temp 88 mmHg (75-108) Arterial Blood HCO3 26 mmol/L (21-28) Arterial Blood Base Excess 2 mmol/L (-3-3) FiO2 40 Laboratory Tests Test 03/02/21 12:52 03/02/21 16:56 03/02/21 21:05 03/02/21 23:54 Glucose (Fingerstick) 136 mg/dL (70-99) 119 mg/dL (70-99) 148 mg/dL (70-99) 141 mg/dL (70-99) Test 03/03/21 05:24 03/03/21 05:30 03/03/21 07:55 Glucose (Fingerstick) 192 mg/dL (70-99) White Blood Count 11.6 x10^3/uL (4.0-11.0) Red Blood Count 3.48 x10^6/uL (3.50-5.40) Hemoglobin 10.3 g/dL (12.0-15.5) Hematocrit 31.2 % (36.0-47.0) Mean Corpuscular Volume 90 fL (79-100) Mean Corpuscular Hemoglobin 30 pg (25-35) Mean Corpuscular Hemoglobin Concent 33 g/dL (31-37) Red Cell Distribution Width 13.6 % (11.5-14.5) Platelet Count 234 x10^3/uL (140-400) Neutrophils (%) (Auto) 75 % (31-73) Lymphocytes (%) (Auto) 13 % (24-48) Monocytes (%) (Auto) 6 % (0-9) Eosinophils (%) (Auto) 5 % (0-3) Basophils (%) (Auto) 1 % (0-3) Neutrophils # (Auto) 8.7 x10^3/uL (1.8-7.7) Lymphocytes # (Auto) 1.6 x10^3/uL (1.0-4.8) Monocytes # (Auto) 0.7 x10^3/uL (0.0-1.1) Eosinophils # (Auto) 0.6 x10^3/uL (0.0-0.7) Basophils # (Auto) 0.1 x10^3/uL (0.0-0.2) Sodium Level 138 mmol/L (136-145) Potassium Level 4.3 mmol/L (3.5-5.1) Chloride Level 106 mmol/L (98-107) Carbon Dioxide Level 26 mmol/L (21-32) Anion Gap 6 (6-14) Blood Urea Nitrogen 14 mg/dL (7-20) Creatinine 0.8 mg/dL (0.6-1.0) Estimated GFR (Cockcroft-Gault) 77.6 Glucose Level 203 mg/dL (70-99) Calcium Level 8.3 mg/dL (8.5-10.1) O2 Saturation 96 % (92-99) Arterial Blood pH 7.44 (7.35-7.45) Arterial Blood pCO2 at Patient Temp 39 mmHg (35-46) Arterial Blood pO2 at Patient Temp 88 mmHg (75-108) Arterial Blood HCO3 26 mmol/L (21-28) Arterial Blood Base Excess 2 mmol/L (-3-3) FiO2 40 Medications Active Scripts Medications Dose Route/Sig Max Daily Dose Days Date Category Novolog Flexpen (Insulin Aspart) 100 Unit/1 Ml Insuln.pen 3-7 SQ TIDACHC 02/07/21 Reported Lisinopril 5 Mg Tablet 1 Tab PO DAILY 02/07/21 Reported Lantus Solostar (Insulin Glargine,Hum.rec.anlog) 100 Unit/1 Ml Insuln.pen 5 Unit SQ QHS 04/09/15 Reported Atorvastatin Calcium 40 Mg Tablet 40 Mg PO HS 04/09/15 Reported Comments Chest x-ray 02/25/2021 IMPRESSION: Lines and tubes as described above. Slight improvement of the pulmonary infiltrates as described above. No pneumothorax. Electronically signed by: Angelito Lim MD (02/25/2021 6:16 AM) [facility] Impression: 1. Support device positioning as above. 2. Persistent and not significantly changed diffuse airspace infiltrates. Impression . IMPRESSION: 1. Acute hypoxic respiratory failure secondary to COVID-19 viral pneumonia/acute lung injury and early acute respiratory distress syndrome. S/P intubation 02/17/21,--slowly improving 2. Nonsmoker. 3. Abnormal chest x-ray consistent with COVID-19 viral pneumonia.--- Improving 4. Diabetic ketoacidosis as initial presentation, currently better.--resolved 5. Underlying obesity contributing to hypoxia as well. Plan . Updated 03/03/2021 Continue current ventilatory support , I spoke with nursing staff in detail that it is very important for me to assess her mental status while off sedation. She will be off of all sedation this morning except low-dose Precedex. If continues to fail off sedation, then we will need tracheostomy. Follow chest x-ray/ABG as needed Continue empiric antibiotics, currently on Zosyn, started on 02/23/2021 S/P remdesivir for full course, has also completed full course of steroids Continue tube feeding for nutritional support Diabetes per PCP DVT/GI prophylaxis: Lovenox Discussed with RN and RT I spoken to patient's sister and explained the clinical situation. Critical care time 30 minutes Updated 03/02/2021 Continue current ventilatory support 18/450/40/5, Wean/DC sedation, and proceed with pressure support trial If continues to fail off sedation, then we will need tracheostomy. Follow chest x-ray/ABG as needed Continue empiric antibiotics, currently on Zosyn, started on 02/23/2021 S/P remdesivir for full course, has also completed full course of steroids Continue tube feeding for nutritional support Diabetes per PCP DVT/GI prophylaxis: Lovenox Discussed with RN and RT Critical care time 30 minutes Updated 03/01/2021 Continue current ventilatory support 18/450/40/5, will decrease sedation sbt when more awake on Precedex/fentanyl/propofol Follow chest x-ray/ABG as needed off steroids as the patient has completed a full 10-day course Continue empiric antibiotics, currently on Zosyn S/P remdesivir for full course Continue tube feeding for nutritional support DVT/GI prophylaxis: Lovenox Discussed with RN and RT EMILY POSADA MD Mar 03, 2021 10:46
--- NOTE | 2021-03-03 12:01 | PDOC ---
[facility] [facility] PROGRESS NOTE Date of Service DOS: DATE: 03/03/21 TIME: 11:59 Chief Complaint Chief Complaint Hypotension COVID-19 positive infection Tractable nausea vomiting DKA Anion gap metabolic acidosis Acute electrolyte derangementhyponatremia, hypochloremia due to volume depletion Hyperglycemia uncontrolled BOB due to vasomotor nephropathy Erythrocytosis Reglan for diabetic gastroparesis Continue Covid measures Patient intubated Pulmonary following SCD for DVT prophylaxis Protonix GI prophylaxis ADA diet Full code Discussed with RN and SW Disposition inpatient management as above Surrogate decision maker is Brian Whitmore History of Present Illness History of Present Illness 46 year old female who presents with nausea/vomiting since 7 AM yesterday morning. Patient states that her recently tested positive for Covid. She states that he "coughed in my face because he thought it was funny." She reports subjective fevers and chills and nausea/vomiting. Denies sore throat, cough, shortness of breath. No chest pain. Does have some upper abdominal discomfort after vomiting, that she attributes to muscular strain. She is not vaccinated for Covid. 02/08/2021 No acute events overnight. Patient seen and examined bedside and resting comfortably. Continues to complain of nausea not able to tolerate any diet at this time. Saturating 98% on room air. Patient's chart, labs, images were reviewed and discussed with RN 02/09/2021: Afebrile, currently breathing on room air. Still with complaints of nausea and vomiting x3 today. States that she has history of similar symptoms that have been mildly improved with IV Dilaudid. Discussed with patient that I will provide IV Dilaudid to help with her nausea, but she will not discharged on this medication. Will obtain 6-minute walk to evaluate oxygen requirements. Upon discharge, I recommend self quarantine for 10 days for resolution of her symptoms. Discussed with patient that she will discharge tomorrow. 02/10/2021: Patient febrile today with T-max 102.2 F. She still admits to nausea, denies any further vomiting. We will continue to provide supportive care and monitor for any recurrent fevers overnight. Patient continues to improve may discharge tomorrow to continue self-isolation. 02/11/2021: Febrile overnight, T-max 102.3 F. She did become hypoxic overnight, currently breathing on 4 L nasal cannula. Also admits to associated vomiting or diarrhea overnight. Discussed with RN, will initiate remdesivir and closely monitor LFTs. We will also treat with IV Decadron, and prophylactic antibiotics. 02/12/2021: Low-grade fever overnight, T-max 99.7. Currently breathing on room air. Will discontinue remdesivir, steroids, and antibiotics; will observe overnight. Still with complaints of vomiting x1 and diarrhea. We will continue to provide supportive care and hope to discharge in the next day or so. 02/13/2021: Afebrile. Still complains of intermittent diarrhea. At the time of my evaluation she was breathing on 6 L nasal cannula; this is somewhat misleading as patient states that she did not feel short of breath but was placed on 6 L by nursing staff overnight. Will have RN reassess her oxygen requirements as I did anticipate discharging today. 02/14/2021: Afebrile, currently breathing on 8 L nasal cannula. There has been some misleading documentation, chart oxygen this patient is requiring. Discussed with RN, will resume remdesivir to complete total of 5 days. Continue to monitor LFTs. Will add steroids, Rocephin, and azithromycin. Continue supportive care. 02/15/2021: Afebrile. Became much more hypoxic overnight, requiring BiPAP. At the time of my evaluation she is still breathing on BiPAP. Consultation was placed to pulmonology. Had discussion with Dr. Myrick about initiating Tocilizumab, but currently there is 1 more person in the ER that would be more deserving. When stocks are replenished, she will be first inline to receive this medication. She is also first-line to be transferred down to ICU. Critical care time 30 minutes spent reviewing labs, reviewing imaging, discussio n with Dr. Myrick, and discussion with RN. 02/16/2021 No acute events overnight. Patient becoming more hypoxic saturating 94% and requiring BiPAP. Patient will be transferred to the ICU at this time. For worsening clinical status. Discussed with pulmonary. Patient's chart, labs, images were reviewed and discussed with RN 02/17/21 Transferred to ICU yesterday afternoon. Seen and examined at bedside she remains on 100% FiO2 on BiPAP. Respirations do appear somewhat labored. Suspect intubation may be impending. We will closely monitor. Increase lisinopril to 20 today. Plan of care discussed with bedside RN. 02/18/21 Patient required intubation yesterday afternoon. Saw and examined this morning. She is intubated and sedated. Increase insulin today. Covid protocol ordered. Wean as tolerated. Plan of care discussed with bedside nurse. 02/19/21 Bedside. She remains intubated and sedated. Continue Covid protocol. Wean oxygen sedation as tolerated. Pulmonary following. Plan of care discussed with bedside RN. 02/20/21 Patient seen and examined at bedside. She remains intubated and sedated. No major clinical changes. Continue current treatment. Pulmonary following. Plan of care discussed with bedside RN. 02/21/21 Patient seen and examined at bedside. Remains intubated and sedated date and admission clinical changes. Increase free water flushes today due to hypernatremia. Plan of care discussed with bedside nurse. 02/22/21 Patient seen and examined at bedside. O2 requirement actually improving, althou gh remains intubated. Possible SBT in the coming days. Hypernatremia improving. Plan of care discussed bedside RN. 02/23/2021: Patient remains in ICU on ventilator with FiO2 100%, PEEP 7. Repeat chest x-ray yesterday showed diffuse bilateral pulmonary opacities with no interval improvement. Will discontinue Rocephin and initiate Zosyn. We will continue IV steroids for a full 10-day course (to be completed 02/25/2021). Completed remdesivir. Continue supportive care. Critical care time 30 minutes spent reviewing charts, reviewing imaging, reviewing labs, discussion with RN. 02/24/2021: Afebrile. On vent with FiO2 40%, PEEP 6. Her Coreg has been held due to persistent bradycardia. No documented history of systolic heart failure or previous echocardiogram. Will need to obtain echocardiogram prior to discharge. Continue IV steroids and antibiotics. 02/25/2021: Afebrile. Remains ventilated with FiO2 45%, PEEP 6. Chest x-ray today showed slight improvement of the pulmonary infiltrates, no pneumothorax. Completed 10-day course of IV Decadron. Will initiate slow Solu-Medrol taper. Continue IV Zosyn. Continue supportive care. Will need echocardiogram prior to discharge to evaluate heart failure. Critical care time 30 minutes spent reviewing charts, reviewing imaging, reviewing labs, discussion with RN. 02/26/2021: Afebrile. On vent with FiO2 45%, PEEP 6. Completed 10 days of IV Decadron. Will continue IV Zosyn. Continue supportive care. Critical care time 30 minutes spent reviewing charts, reviewing imaging, reviewing labs, discussion with RN. 02/27/2021: Afebrile. On vent with FiO2 45%, PEEP 6. Completed 10 days of stero ids and completed remdesivir. Continue with IV Zosyn. CPAP trial yesterday. Continue NG tube and supportive care. Critical care time 30 minutes spent reviewing charts, reviewing imaging, reviewing labs, discussion with RN. 02/28/2021:. Patient remains on vent with FiO2 40%, PEEP 5. Afebrile. Completed steroids and remdesivir. Some noted hypoglycemia overnight, will de-escalate basal insulin. Continue IV Zosyn. Ventilator management per pulmonology. Continue NG tube and supportive care. Critical care time 30 minutes spent reviewing charts, reviewing imaging, reviewing labs, discussion with RN. 03/01/2021: On vent with FiO2 40%, PEEP 5. Afebrile. Completed steroids and remdesivir. Blood glucose well controlled. Continue empiric antibiotics with Zosyn. Ventilator management per pulmonology. Continue NG tube and supportive care. Critical care time 30 minutes spent reviewing charts, reviewing imaging, reviewing labs, discussion with RN. 03/02/2021 No acute events overnight. Patient hypotensive the morning due to oversedation. Will wean off sedation and keep antihypertensive medications on board. Currently saturating 100% on vent settings of 18/450/40/5. Will attempt spontaneous breathing trial today to see how patient does. Defer this management to pulmonary. Patient's chart, labs, images were reviewed and discussed with RN A total of 36 minutes of critical care time was spent in reviewing chart, labs, and images. Discussed with RN and SW. 03/03/2021 No acute events overnight. Patient saturating 98% on vent settings of 18/450/40/5. Will defer spontaneous breathing trials to pulmonary at this time. Patient's chart, labs, images were reviewed and discussed with RN A total of 37 minutes of critical care time was spent in reviewing chart, labs, and images. Discussed with RN and SW. Vitals/I&O Vitals/I&O: Vital Signs Date Time Temp Pulse Resp B/P (MAP) Pulse Ox O2 Delivery O2 Flow Rate FiO2 03/03/21 11:15 100 Ventilator 03/03/21 06:01 52 20 142/80 (100) 03/03/21 04:36 15.0 03/03/21 04:00 98.1 98.1 I & O 03/02/21 03/02/21 03/03/21 15:00 23:00 07:00 Intake Total 400 ml 2514.58 ml 1150 ml Output Total 340 ml 350 ml 800 ml Balance 60 ml 2164.58 ml 350 ml Physical Exam General: Other (Intubated and sedated) Heart: Regular rate Abdomen: Normal bowel sounds Extremities: No clubbing, No edema Skin: No rashes, No significant lesion Labs Labs: Laboratory Tests Test 03/02/21 12:52 03/02/21 16:56 03/02/21 21:05 03/02/21 23:54 Glucose (Fingerstick) 136 mg/dL (70-99) 119 mg/dL (70-99) 148 mg/dL (70-99) 141 mg/dL (70-99) Test 03/03/21 05:24 03/03/21 05:30 03/03/21 07:55 Glucose (Fingerstick) 192 mg/dL (70-99) White Blood Count 11.6 x10^3/uL (4.0-11.0) Red Blood Count 3.48 x10^6/uL (3.50-5.40) Hemoglobin 10.3 g/dL (12.0-15.5) Hematocrit 31.2 % (36.0-47.0) Mean Corpuscular Volume 90 fL (79-100) Mean Corpuscular Hemoglobin 30 pg (25-35) Mean Corpuscular Hemoglobin Concent 33 g/dL (31-37) Red Cell Distribution Width 13.6 % (11.5-14.5) Platelet Count 234 x10^3/uL (140-400) Neutrophils (%) (Auto) 75 % (31-73) Lymphocytes (%) (Auto) 13 % (24-48) Monocytes (%) (Auto) 6 % (0-9) Eosinophils (%) (Auto) 5 % (0-3) Basophils (%) (Auto) 1 % (0-3) Neutrophils # (Auto) 8.7 x10^3/uL (1.8-7.7) Lymphocytes # (Auto) 1.6 x10^3/uL (1.0-4.8) Monocytes # (Auto) 0.7 x10^3/uL (0.0-1.1) Eosinophils # (Auto) 0.6 x10^3/uL (0.0-0.7) Basophils # (Auto) 0.1 x10^3/uL (0.0-0.2) Sodium Level 138 mmol/L (136-145) Potassium Level 4.3 mmol/L (3.5-5.1) Chloride Level 106 mmol/L (98-107) Carbon Dioxide Level 26 mmol/L (21-32) Anion Gap 6 (6-14) Blood Urea Nitrogen 14 mg/dL (7-20) Creatinine 0.8 mg/dL (0.6-1.0) Estimated GFR (Cockcroft-Gault) 77.6 Glucose Level 203 mg/dL (70-99) Calcium Level 8.3 mg/dL (8.5-10.1) O2 Saturation 96 % (92-99) Arterial Blood pH 7.44 (7.35-7.45) Arterial Blood pCO2 at Patient Temp 39 mmHg (35-46) Arterial Blood pO2 at Patient Temp 88 mmHg (75-108) Arterial Blood HCO3 26 mmol/L (21-28) Arterial Blood Base Excess 2 mmol/L (-3-3) FiO2 40 Assessment and Plan Assessmemt and Plan Problems Medical Problems: (1) Ketoacidosis Status: Acute Comment Review of Relevant I have reviewed the following items mazin (where applicable) has been applied. Medications: Current Medications Medications (Trade) Dose Ordered Sig/Pepe Route PRN Reason Start Time Stop Time Status Last Admin Dose Admin Nystatin (Nystop) 1 reji BID TP 03/02/21 21:00 03/03/21 09:00 Justifications for Admission Other Justification SRIKANTH DAVIS MD Mar 03, 2021 12:01
[2021-03-03] MEDS: INSULIN GLARGINE SYRINGE. SQ SCH (21:00)
[2021-03-03] MEDS: ATORVASTATIN CALCIUM 40 MG TABLET. PO SCH (21:15)
[2021-03-03] MEDS: MIDAZOLAM 100mg/100ml NS BAG 100 ML IV PRN (23:25)
[2021-03-04] VITALS (24 sets, daily range): BP systolic 82–120; BP diastolic 43–64
[2021-03-04] MEDS: PROPOFOL 100 ML IV PRN ×5 (01:48→21:14)
[2021-03-04] MEDS: DEXMEDETOMIDINE 400 MCG in IV NORMAL SALINE 100ML 96 ML IV PRN ×5 (04:13→22:55)
[2021-03-04] MEDS: INSULIN LISPRO 300 UNITS/3 ML VIAL. SQ SCH ×5 (05:42→23:49)
[2021-03-04] MEDS: PIPERACILLIN/TAZOBACTAM 4.5 GM in IV NORMAL SALINE 100ML 100 ML IV SCH ×4 (05:42→23:42)
[2021-03-04 06:04] LABS: BASO # 0.1 x10^3/uL (0.0-0.2); BASO % 0 % (0-3); EOS # 0.6 x10^3/uL (0.0-0.7); EOS % 4 % (0-3); HEMATOCRIT 28.6 % (36.0-47.0); HEMOGLOBIN 9.2 g/dL (12.0-15.5); LYMPH # 1.4 x10^3/uL (1.0-4.8); LYMPH % 9 % (24-48); MEAN CORPUSCULAR HEMOGLOBIN 29 pg (25-35); MEAN CORPUSCULAR HGB CONC 32 g/dL (31-37); MEAN CORPUSCULAR VOLUME 89 fL (79-100); MONO # 1.1 x10^3/uL (0.0-1.1); MONO % 7 % (0-9); NEUT # 12.2 x10^3/uL (1.8-7.7); NEUT % 79 % (31-73); PLATELET COUNT 241 x10^3/uL (140-400); RED CELL DISTRIBUTION WIDTH 13.3 % (11.5-14.5); WHITE BLOOD COUNT 15.4 x10^3/uL (4.0-11.0)
[2021-03-04 06:15] LABS: CALCIUM 8.1 mg/dL (8.5-10.1)
[2021-03-04] MEDS: LISINOPRIL 20 MG TABLET PO SCH (07:32)
[2021-03-04 08:20] LABS: BASE EXCESS ABG 0 mmol/L (-3-3); HCO3 ABG 25 mmol/L (21-28); PCO2 ABG 45 mmHg (35-46); PO2 ABG 52 mmHg (75-108); SAT O2 ABG 84 % (92-99)
[2021-03-04 08:22] LABS: FIO2 ABG 40
[2021-03-04] MEDS: FAMOTIDINE 20 MG/2 ML VIAL IVP SCH ×2 (08:24→21:10)
[2021-03-04] MEDS: MIDAZOLAM 100mg/100ml NS BAG 100 ML IV PRN ×2 (08:24→19:27)
[2021-03-04] MEDS: ENOXAPARIN 40 MG/0.4 ML SYRINGE. SQ SCH ×2 (08:25→21:10)
[2021-03-04] MEDS: DOCUSATE 100 MG/10 ML SOLUTION. PO SCH ×2 (08:25→21:10)
[2021-03-04] MEDS: NYSTATIN TOPICAL POWDER 15GM BOTTLE. TP SCH ×2 (08:26→21:00)
--- NOTE | 2021-03-04 11:31 | PDOC ---
PULMONARY PROGRESS NOTES DATE: 03/04/21 TIME: 11:29 Subjective Patient remains on vent support 40% and PEEP of 5 unable to tolerate weaning fever overnight No overnight concerns from nursing, Vitals Vital Signs Date Time Temp Pulse Resp B/P (MAP) Pulse Ox O2 Delivery O2 Flow Rate FiO2 03/04/21 10:00 72 24 114/52 (72) 99 Ventilator 03/04/21 08:28 15.0 03/04/21 07:00 101.7 101.7 Comments Visual exam done due to COVID-19. intubated NC AT RRR no accessory muscle use abd obese No skin rash or leg edema. Labs Laboratory Tests Test 03/02/21 12:52 03/02/21 16:56 03/02/21 21:05 03/02/21 23:54 Glucose (Fingerstick) 136 mg/dL (70-99) 119 mg/dL (70-99) 148 mg/dL (70-99) 141 mg/dL (70-99) Test 03/03/21 05:24 03/03/21 05:30 03/03/21 07:55 03/03/21 13:10 Glucose (Fingerstick) 192 mg/dL (70-99) 189 mg/dL (70-99) White Blood Count 11.6 x10^3/uL (4.0-11.0) Red Blood Count 3.48 x10^6/uL (3.50-5.40) Hemoglobin 10.3 g/dL (12.0-15.5) Hematocrit 31.2 % (36.0-47.0) Mean Corpuscular Volume 90 fL (79-100) Mean Corpuscular Hemoglobin 30 pg (25-35) Mean Corpuscular Hemoglobin Concent 33 g/dL (31-37) Red Cell Distribution Width 13.6 % (11.5-14.5) Platelet Count 234 x10^3/uL (140-400) Neutrophils (%) (Auto) 75 % (31-73) Lymphocytes (%) (Auto) 13 % (24-48) Monocytes (%) (Auto) 6 % (0-9) Eosinophils (%) (Auto) 5 % (0-3) Basophils (%) (Auto) 1 % (0-3) Neutrophils # (Auto) 8.7 x10^3/uL (1.8-7.7) Lymphocytes # (Auto) 1.6 x10^3/uL (1.0-4.8) Monocytes # (Auto) 0.7 x10^3/uL (0.0-1.1) Eosinophils # (Auto) 0.6 x10^3/uL (0.0-0.7) Basophils # (Auto) 0.1 x10^3/uL (0.0-0.2) Sodium Level 138 mmol/L (136-145) Potassium Level 4.3 mmol/L (3.5-5.1) Chloride Level 106 mmol/L (98-107) Carbon Dioxide Level 26 mmol/L (21-32) Anion Gap 6 (6-14) Blood Urea Nitrogen 14 mg/dL (7-20) Creatinine 0.8 mg/dL (0.6-1.0) Estimated GFR (Cockcroft-Gault) 77.6 Glucose Level 203 mg/dL (70-99) Calcium Level 8.3 mg/dL (8.5-10.1) O2 Saturation 96 % (92-99) Arterial Blood pH 7.44 (7.35-7.45) Arterial Blood pCO2 at Patient Temp 39 mmHg (35-46) Arterial Blood pO2 at Patient Temp 88 mmHg (75-108) Arterial Blood HCO3 26 mmol/L (21-28) Arterial Blood Base Excess 2 mmol/L (-3-3) FiO2 40 Test 03/03/21 19:26 03/03/21 21:18 03/03/21 23:30 03/04/21 05:39 Glucose (Fingerstick) 137 mg/dL (70-99) 124 mg/dL (70-99) 183 mg/dL (70-99) 176 mg/dL (70-99) Test 03/04/21 05:45 03/04/21 08:16 White Blood Count 15.4 x10^3/uL (4.0-11.0) Red Blood Count 3.20 x10^6/uL (3.50-5.40) Hemoglobin 9.2 g/dL (12.0-15.5) Hematocrit 28.6 % (36.0-47.0) Mean Corpuscular Volume 89 fL (79-100) Mean Corpuscular Hemoglobin 29 pg (25-35) Mean Corpuscular Hemoglobin Concent 32 g/dL (31-37) Red Cell Distribution Width 13.3 % (11.5-14.5) Platelet Count 241 x10^3/uL (140-400) Neutrophils (%) (Auto) 79 % (31-73) Lymphocytes (%) (Auto) 9 % (24-48) Monocytes (%) (Auto) 7 % (0-9) Eosinophils (%) (Auto) 4 % (0-3) Basophils (%) (Auto) 0 % (0-3) Neutrophils # (Auto) 12.2 x10^3/uL (1.8-7.7) Lymphocytes # (Auto) 1.4 x10^3/uL (1.0-4.8) Monocytes # (Auto) 1.1 x10^3/uL (0.0-1.1) Eosinophils # (Auto) 0.6 x10^3/uL (0.0-0.7) Basophils # (Auto) 0.1 x10^3/uL (0.0-0.2) Sodium Level 140 mmol/L (136-145) Potassium Level 4.0 mmol/L (3.5-5.1) Chloride Level 106 mmol/L (98-107) Carbon Dioxide Level 28 mmol/L (21-32) Anion Gap 6 (6-14) Blood Urea Nitrogen 13 mg/dL (7-20) Creatinine 1.0 mg/dL (0.6-1.0) Estimated GFR (Cockcroft-Gault) 60.0 Glucose Level 181 mg/dL (70-99) Calcium Level 8.1 mg/dL (8.5-10.1) O2 Saturation 84 % (92-99) Arterial Blood pH 7.37 (7.35-7.45) Arterial Blood pCO2 at Patient Temp 45 mmHg (35-46) Arterial Blood pO2 at Patient Temp 52 mmHg (75-108) Arterial Blood HCO3 25 mmol/L (21-28) Arterial Blood Base Excess 0 mmol/L (-3-3) FiO2 40 Laboratory Tests Test 03/03/21 13:10 03/03/21 19:26 03/03/21 21:18 03/03/21 23:30 Glucose (Fingerstick) 189 mg/dL (70-99) 137 mg/dL (70-99) 124 mg/dL (70-99) 183 mg/dL (70-99) Test 03/04/21 05:39 03/04/21 05:45 03/04/21 08:16 Glucose (Fingerstick) 176 mg/dL (70-99) White Blood Count 15.4 x10^3/uL (4.0-11.0) Red Blood Count 3.20 x10^6/uL (3.50-5.40) Hemoglobin 9.2 g/dL (12.0-15.5) Hematocrit 28.6 % (36.0-47.0) Mean Corpuscular Volume 89 fL (79-100) Mean Corpuscular Hemoglobin 29 pg (25-35) Mean Corpuscular Hemoglobin Concent 32 g/dL (31-37) Red Cell Distribution Width 13.3 % (11.5-14.5) Platelet Count 241 x10^3/uL (140-400) Neutrophils (%) (Auto) 79 % (31-73) Lymphocytes (%) (Auto) 9 % (24-48) Monocytes (%) (Auto) 7 % (0-9) Eosinophils (%) (Auto) 4 % (0-3) Basophils (%) (Auto) 0 % (0-3) Neutrophils # (Auto) 12.2 x10^3/uL (1.8-7.7) Lymphocytes # (Auto) 1.4 x10^3/uL (1.0-4.8) Monocytes # (Auto) 1.1 x10^3/uL (0.0-1.1) Eosinophils # (Auto) 0.6 x10^3/uL (0.0-0.7) Basophils # (Auto) 0.1 x10^3/uL (0.0-0.2) Sodium Level 140 mmol/L (136-145) Potassium Level 4.0 mmol/L (3.5-5.1) Chloride Level 106 mmol/L (98-107) Carbon Dioxide Level 28 mmol/L (21-32) Anion Gap 6 (6-14) Blood Urea Nitrogen 13 mg/dL (7-20) Creatinine 1.0 mg/dL (0.6-1.0) Estimated GFR (Cockcroft-Gault) 60.0 Glucose Level 181 mg/dL (70-99) Calcium Level 8.1 mg/dL (8.5-10.1) O2 Saturation 84 % (92-99) Arterial Blood pH 7.37 (7.35-7.45) Arterial Blood pCO2 at Patient Temp 45 mmHg (35-46) Arterial Blood pO2 at Patient Temp 52 mmHg (75-108) Arterial Blood HCO3 25 mmol/L (21-28) Arterial Blood Base Excess 0 mmol/L (-3-3) FiO2 40 Medications Active Scripts Medications Dose Route/Sig Max Daily Dose Days Date Category Novolog Flexpen (Insulin Aspart) 100 Unit/1 Ml Insuln.pen 3-7 SQ TIDACHC 02/07/21 Reported Lisinopril 5 Mg Tablet 1 Tab PO DAILY 02/07/21 Reported Lantus Solostar (Insulin Glargine,Hum.rec.anlog) 100 Unit/1 Ml Insuln.pen 5 Unit SQ QHS 04/09/15 Reported Atorvastatin Calcium 40 Mg Tablet 40 Mg PO HS 04/09/15 Reported Comments Chest x-ray 02/25/2021 IMPRESSION: Lines and tubes as described above. Slight improvement of the pulmonary infiltrates as described above. No pneumothorax. Electronically signed by: Angelito Lim MD (02/25/2021 6:16 AM) [facility] Impression: 1. Support device positioning as above. 2. Persistent and not significantly changed diffuse airspace infiltrates. Impression . IMPRESSION: 1. Acute hypoxic respiratory failure secondary to COVID-19 viral pneumonia/acute lung injury and early acute respiratory distress syndrome. S/P intubation 02/17/21,--slowly improving 2. Nonsmoker. 3. Abnormal chest x-ray consistent with COVID-19 viral pneumonia.--- Improving 4. Diabetic ketoacidosis as initial presentation, currently better.--resolved 5. Underlying obesity contributing to hypoxia as well. Plan . Updated 03/04/2021 Continue current ventilatory support 18/450/40/5, pt. still unable to tolerate sedation vcation/weaning trial consult surgery for trach Follow chest x-ray/ABG as needed Continue empiric antibiotics, currently on Zosyn, started on 02/23/2021, Consult ID as pt. now has fever S/P remdesivir for full course, has also completed full course of steroids Continue tube feeding for nutritional support DVT/GI prophylaxis: Lovenox Discussed with VANESA and R Critical care time 30 minutes Updated 03/03/2021 Continue current ventilatory support 18/450/40/5, I spoke with nursing staff in detail that it is very important for me to assess her mental status while off sedation. She will be off of all sedation this morning except low-dose Precedex. If continues to fail off sedation, then we will need tracheostomy. Follow chest x-ray/ABG as needed Continue empiric antibiotics, currently on Zosyn, started on 02/23/2021 S/P remdesivir for full course, has also completed full course of steroids Continue tube feeding for nutritional support Diabetes per PCP DVT/GI prophylaxis: Lovenox Discussed with RN and RT I spoken to patient's sister and explained the clinical situation. Critical care time 30 minutes Updated 03/02/2021 Continue current ventilatory support 18/450/40/5, Wean/DC sedation, and proceed with pressure support trial If continues to fail off sedation, then we will need tracheostomy. Follow chest x-ray/ABG as needed Continue empiric antibiotics, currently on Zosyn, started on 02/23/2021 S/P remdesivir for full course, has also completed full course of steroids Continue tube feeding for nutritional support Diabetes per PCP DVT/GI prophylaxis: Lovenox Discussed with RN and RT Critical care time 30 minutes EMILY POSADA MD Mar 04, 2021 11:31
--- NOTE | 2021-03-04 11:59 | PDOC ---
[facility] [facility] PROGRESS NOTE Date of Service DOS: DATE: 03/04/21 TIME: 11:58 Chief Complaint Chief Complaint Hypotension COVID-19 positive infection Tractable nausea vomiting DKA Anion gap metabolic acidosis Acute electrolyte derangementhyponatremia, hypochloremia due to volume depletion Hyperglycemia uncontrolled BOB due to vasomotor nephropathy Erythrocytosis Reglan for diabetic gastroparesis Continue Covid measures Patient intubated Pulmonary following SCD for DVT prophylaxis Protonix GI prophylaxis ADA diet Full code Discussed with RN and SW Disposition inpatient management as above Surrogate decision maker is Brian Whitmore History of Present Illness History of Present Illness 46 year old female who presents with nausea/vomiting since 7 AM yesterday morning. Patient states that her recently tested positive for Covid. She states that he "coughed in my face because he thought it was funny." She reports subjective fevers and chills and nausea/vomiting. Denies sore throat, cough, shortness of breath. No chest pain. Does have some upper abdominal discomfort after vomiting, that she attributes to muscular strain. She is not vaccinated for Covid. 02/08/2021 No acute events overnight. Patient seen and examined bedside and resting comfortably. Continues to complain of nausea not able to tolerate any diet at this time. Saturating 98% on room air. Patient's chart, labs, images were reviewed and discussed with RN 02/09/2021: Afebrile, currently breathing on room air. Still with complaints of nausea and vomiting x3 today. States that she has history of similar symptoms that have been mildly improved with IV Dilaudid. Discussed with patient that I will provide IV Dilaudid to help with her nausea, but she will not discharged on this medication. Will obtain 6-minute walk to evaluate oxygen requirements. Upon discharge, I recommend self quarantine for 10 days for resolution of her symptoms. Discussed with patient that she will discharge tomorrow. 02/10/2021: Patient febrile today with T-max 102.2 F. She still admits to nausea, denies any further vomiting. We will continue to provide supportive care and monitor for any recurrent fevers overnight. Patient continues to improve may discharge tomorrow to continue self-isolation. 02/11/2021: Febrile overnight, T-max 102.3 F. She did become hypoxic overnight, currently breathing on 4 L nasal cannula. Also admits to associated vomiting or diarrhea overnight. Discussed with RN, will initiate remdesivir and closely monitor LFTs. We will also treat with IV Decadron, and prophylactic antibiotics. 02/12/2021: Low-grade fever overnight, T-max 99.7. Currently breathing on room air. Will discontinue remdesivir, steroids, and antibiotics; will observe overnight. Still with complaints of vomiting x1 and diarrhea. We will continue to provide supportive care and hope to discharge in the next day or so. 02/13/2021: Afebrile. Still complains of intermittent diarrhea. At the time of my evaluation she was breathing on 6 L nasal cannula; this is somewhat misleading as patient states that she did not feel short of breath but was placed on 6 L by nursing staff overnight. Will have RN reassess her oxygen requirements as I did anticipate discharging today. 02/14/2021: Afebrile, currently breathing on 8 L nasal cannula. There has been some misleading documentation, chart oxygen this patient is requiring. Discussed with RN, will resume remdesivir to complete total of 5 days. Continue to monitor LFTs. Will add steroids, Rocephin, and azithromycin. Continue supportive care. 02/15/2021: Afebrile. Became much more hypoxic overnight, requiring BiPAP. At the time of my evaluation she is still breathing on BiPAP. Consultation was placed to pulmonology. Had discussion with Dr. Myrick about initiating Tocilizumab, but currently there is 1 more person in the ER that would be more deserving. When stocks are replenished, she will be first inline to receive this medication. She is also first-line to be transferred down to ICU. Critical care time 30 minutes spent reviewing labs, reviewing imaging, discussio n with Dr. Myrick, and discussion with RN. 02/16/2021 No acute events overnight. Patient becoming more hypoxic saturating 94% and requiring BiPAP. Patient will be transferred to the ICU at this time. For worsening clinical status. Discussed with pulmonary. Patient's chart, labs, images were reviewed and discussed with RN 02/17/21 Transferred to ICU yesterday afternoon. Seen and examined at bedside she remains on 100% FiO2 on BiPAP. Respirations do appear somewhat labored. Suspect intubation may be impending. We will closely monitor. Increase lisinopril to 20 today. Plan of care discussed with bedside RN. 02/18/21 Patient required intubation yesterday afternoon. Saw and examined this morning. She is intubated and sedated. Increase insulin today. Covid protocol ordered. Wean as tolerated. Plan of care discussed with bedside nurse. 02/19/21 Bedside. She remains intubated and sedated. Continue Covid protocol. Wean oxygen sedation as tolerated. Pulmonary following. Plan of care discussed with bedside RN. 02/20/21 Patient seen and examined at bedside. She remains intubated and sedated. No major clinical changes. Continue current treatment. Pulmonary following. Plan of care discussed with bedside RN. 02/21/21 Patient seen and examined at bedside. Remains intubated and sedated date and admission clinical changes. Increase free water flushes today due to hypernatremia. Plan of care discussed with bedside nurse. 02/22/21 Patient seen and examined at bedside. O2 requirement actually improving, althou gh remains intubated. Possible SBT in the coming days. Hypernatremia improving. Plan of care discussed bedside RN. 02/23/2021: Patient remains in ICU on ventilator with FiO2 100%, PEEP 7. Repeat chest x-ray yesterday showed diffuse bilateral pulmonary opacities with no interval improvement. Will discontinue Rocephin and initiate Zosyn. We will continue IV steroids for a full 10-day course (to be completed 02/25/2021). Completed remdesivir. Continue supportive care. Critical care time 30 minutes spent reviewing charts, reviewing imaging, reviewing labs, discussion with RN. 02/24/2021: Afebrile. On vent with FiO2 40%, PEEP 6. Her Coreg has been held due to persistent bradycardia. No documented history of systolic heart failure or previous echocardiogram. Will need to obtain echocardiogram prior to discharge. Continue IV steroids and antibiotics. 02/25/2021: Afebrile. Remains ventilated with FiO2 45%, PEEP 6. Chest x-ray today showed slight improvement of the pulmonary infiltrates, no pneumothorax. Completed 10-day course of IV Decadron. Will initiate slow Solu-Medrol taper. Continue IV Zosyn. Continue supportive care. Will need echocardiogram prior to discharge to evaluate heart failure. Critical care time 30 minutes spent reviewing charts, reviewing imaging, reviewing labs, discussion with RN. 02/26/2021: Afebrile. On vent with FiO2 45%, PEEP 6. Completed 10 days of IV Decadron. Will continue IV Zosyn. Continue supportive care. Critical care time 30 minutes spent reviewing charts, reviewing imaging, reviewing labs, discussion with RN. 02/27/2021: Afebrile. On vent with FiO2 45%, PEEP 6. Completed 10 days of stero ids and completed remdesivir. Continue with IV Zosyn. CPAP trial yesterday. Continue NG tube and supportive care. Critical care time 30 minutes spent reviewing charts, reviewing imaging, reviewing labs, discussion with RN. 02/28/2021:. Patient remains on vent with FiO2 40%, PEEP 5. Afebrile. Completed steroids and remdesivir. Some noted hypoglycemia overnight, will de-escalate basal insulin. Continue IV Zosyn. Ventilator management per pulmonology. Continue NG tube and supportive care. Critical care time 30 minutes spent reviewing charts, reviewing imaging, reviewing labs, discussion with RN. 03/01/2021: On vent with FiO2 40%, PEEP 5. Afebrile. Completed steroids and remdesivir. Blood glucose well controlled. Continue empiric antibiotics with Zosyn. Ventilator management per pulmonology. Continue NG tube and supportive care. Critical care time 30 minutes spent reviewing charts, reviewing imaging, reviewing labs, discussion with RN. 03/02/2021 No acute events overnight. Patient hypotensive the morning due to oversedation. Will wean off sedation and keep antihypertensive medications on board. Currently saturating 100% on vent settings of 18/450/40/5. Will attempt spontaneous breathing trial today to see how patient does. Defer this management to pulmonary. Patient's chart, labs, images were reviewed and discussed with RN A total of 36 minutes of critical care time was spent in reviewing chart, labs, and images. Discussed with RN and SW. 03/03/2021 No acute events overnight. Patient saturating 98% on vent settings of 18/450/40/5. Will defer spontaneous breathing trials to pulmonary at this time. Patient's chart, labs, images were reviewed and discussed with RN A total of 37 minutes of critical care time was spent in reviewing chart, labs, and images. Discussed with RN and KIRBY. 03/04/2021 No acute events overnight. Patient saturating 9 9% on vent settings of 18/450 /30/5. Patient currently is unable to tolerate weaning. Per pulmonary. Patient's chart, labs, images were reviewed and discussed with RN A total of 34 minutes of critical care time was spent in reviewing chart, labs, and images. Discussed with RN and SW. Vitals/I&O Vitals/I&O: Vital Signs Date Time Temp Pulse Resp B/P (MAP) Pulse Ox O2 Delivery O2 Flow Rate FiO2 03/04/21 11:51 99 Ventilator 03/04/21 10:00 72 24 114/52 (72) 03/04/21 08:28 15.0 03/04/21 07:00 101.7 101.7 I & O 03/03/21 03/03/21 03/04/21 15:00 23:00 07:00 Intake Total 500 ml 2904 ml 1097 ml Output Total 310 ml 465 ml 375 ml Balance 190 ml 2439 ml 722 ml Physical Exam General: Other (Intubated and sedated) Heart: Regular rate Abdomen: Normal bowel sounds Extremities: No clubbing, No edema Skin: No rashes, No significant lesion Labs Labs: Laboratory Tests Test 03/03/21 13:10 03/03/21 19:26 03/03/21 21:18 03/03/21 23:30 Glucose (Fingerstick) 189 mg/dL (70-99) 137 mg/dL (70-99) 124 mg/dL (70-99) 183 mg/dL (70-99) Test 03/04/21 05:39 03/04/21 05:45 03/04/21 08:16 Glucose (Fingerstick) 176 mg/dL (70-99) White Blood Count 15.4 x10^3/uL (4.0-11.0) Red Blood Count 3.20 x10^6/uL (3.50-5.40) Hemoglobin 9.2 g/dL (12.0-15.5) Hematocrit 28.6 % (36.0-47.0) Mean Corpuscular Volume 89 fL (79-100) Mean Corpuscular Hemoglobin 29 pg (25-35) Mean Corpuscular Hemoglobin Concent 32 g/dL (31-37) Red Cell Distribution Width 13.3 % (11.5-14.5) Platelet Count 241 x10^3/uL (140-400) Neutrophils (%) (Auto) 79 % (31-73) Lymphocytes (%) (Auto) 9 % (24-48) Monocytes (%) (Auto) 7 % (0-9) Eosinophils (%) (Auto) 4 % (0-3) Basophils (%) (Auto) 0 % (0-3) Neutrophils # (Auto) 12.2 x10^3/uL (1.8-7.7) Lymphocytes # (Auto) 1.4 x10^3/uL (1.0-4.8) Monocytes # (Auto) 1.1 x10^3/uL (0.0-1.1) Eosinophils # (Auto) 0.6 x10^3/uL (0.0-0.7) Basophils # (Auto) 0.1 x10^3/uL (0.0-0.2) Sodium Level 140 mmol/L (136-145) Potassium Level 4.0 mmol/L (3.5-5.1) Chloride Level 106 mmol/L (98-107) Carbon Dioxide Level 28 mmol/L (21-32) Anion Gap 6 (6-14) Blood Urea Nitrogen 13 mg/dL (7-20) Creatinine 1.0 mg/dL (0.6-1.0) Estimated GFR (Cockcroft-Gault) 60.0 Glucose Level 181 mg/dL (70-99) Calcium Level 8.1 mg/dL (8.5-10.1) O2 Saturation 84 % (92-99) Arterial Blood pH 7.37 (7.35-7.45) Arterial Blood pCO2 at Patient Temp 45 mmHg (35-46) Arterial Blood pO2 at Patient Temp 52 mmHg (75-108) Arterial Blood HCO3 25 mmol/L (21-28) Arterial Blood Base Excess 0 mmol/L (-3-3) FiO2 40 Assessment and Plan Assessmemt and Plan Problems Medical Problems: (1) Ketoacidosis Status: Acute Comment Review of Relevant I have reviewed the following items mazin (where applicable) has been applied. Justifications for Admission Other Justification SRIKANTH DAVIS MD Mar 04, 2021 11:59
[2021-03-04] MEDS: ACETAMINOPHEN 650 MG/20.3 ML SOLUTION. PEG PRN (12:48)
--- NOTE | 2021-03-04 15:50 | NUR ---
SS following up with discharge planning. SS reviewed pt chart and discussed with pt RN. Pt is currently on the vent at 50%. COVID19 positive. Pt on IV Zosyn. Pt on Precedex, Versed, Propofol, and Fentanyl. Tube feeds. Self pay. Med Assist following. SS will continue to follow for discharge planning.
[2021-03-04] MEDS ORDERED: VANCOMYCIN PER PHARMACY MC PRN (18:30)
[2021-03-04] MEDS ORDERED: VANCOMYCIN 2 GM in IV NORMAL SALINE 500ML BAG 500 ML IV ONE (19:00)
--- NOTE | 2021-03-04 19:47 | NUR ---
Pharmacy Vancomycin Dosing Note S:Consulted to monitor and dose vancomycin started 03/04/21. O:ARIADNA BANKS is a 46 year old F with Sepsis . Height: 5 feet, 4 inches Weight: 109.742606 kg [place] Body Weight: 54.70 Adjusted Body Weight: 76.74 Dosing Weight: Actual Other Antibiotics: ZOSYN LABS: Last BUN: Last Creatinine: Creatinine Clearance: 85 mL/min Last WBC: 15.4 Last Procalcitonin: Tmax (past 24 hours): 102.0 Microbiology: I/O: Drug Levels: Last level: on at Last dose given 03/04/21 at 1930 Vancomycin Dosing: Loading Dose: 2000 mg x1 Dosing Weight: Actual Target Trough: 15-20 A: Based on: WEIGHT AND RENAL FUNCTION, VANCOMYCIN 2GM IV BOLUS GIVEN, P: 1. Begin Vancomycin 1500 mg IV q12h 2. Follow up Trough level on 03/06/21 at 0700 3. Pharmacy will continue to monitor, follow and adjust therapy as needed. SAMUEL MILLER [facility], 03/04/21 [id number]
[2021-03-04] MEDS ORDERED: VANCOMYCIN 1 GM in IV NORMAL SALINE 250ML 250 ML IV SCH (20:00)
[2021-03-04] MEDS: INSULIN GLARGINE SYRINGE. SQ SCH (21:00)
[2021-03-04] MEDS: ATORVASTATIN CALCIUM 40 MG TABLET. PO SCH (21:10)
[2021-03-05] VITALS (23 sets, daily range): BP systolic 81–123; BP diastolic 46–65
[2021-03-05] MEDS: PROPOFOL 100 ML IV PRN ×4 (02:34→23:33)
[2021-03-05] MEDS: MIDAZOLAM 100mg/100ml NS BAG 100 ML IV PRN ×2 (04:59→15:42)
[2021-03-05] MEDS: DEXMEDETOMIDINE 400 MCG in IV NORMAL SALINE 100ML 96 ML IV PRN ×4 (05:01→23:32)
[2021-03-05] MEDS: PIPERACILLIN/TAZOBACTAM 4.5 GM in IV NORMAL SALINE 100ML 100 ML IV SCH ×3 (05:47→18:03)
[2021-03-05] MEDS: INSULIN LISPRO 300 UNITS/3 ML VIAL. SQ SCH ×3 (05:47→18:00)
[2021-03-05] MEDS ORDERED: VANCOMYCIN 1.5 GM in IV NORMAL SALINE 500ML BAG 500 ML IV SCH (07:30)
[2021-03-05] MEDS: LISINOPRIL 20 MG TABLET PO SCH (07:34)
[2021-03-05 08:31] LABS: BASE EXCESS ABG -2 mmol/L (-3-3); HCO3 ABG 24 mmol/L (21-28); PCO2 ABG 42 mmHg (35-46); PO2 ABG 58 mmHg (75-108); SAT O2 ABG 88 % (92-99)
[2021-03-05 08:36] LABS: FIO2 ABG 50
--- NOTE | 2021-03-05 08:59 | PDOC ---
Infectious Disease Note Vital Signs: Vital Signs Vital Signs Date Time Temp Pulse Resp B/P (MAP) Pulse Ox O2 Delivery O2 Flow Rate FiO2 03/05/21 08:05 96 Ventilator 03/05/21 06:58 15.0 03/05/21 06:00 68 28 104/54 (71) 03/05/21 04:00 98.9 98.9 Medications: Inpatient Meds: Medications reviewed. Labs: Lab Laboratory Tests Test 03/04/21 12:41 03/04/21 18:32 03/04/21 21:15 03/04/21 23:47 Glucose (Fingerstick) 227 mg/dL (70-99) 169 mg/dL (70-99) 130 mg/dL (70-99) 121 mg/dL (70-99) Test 03/05/21 05:46 03/05/21 08:25 Glucose (Fingerstick) 137 mg/dL (70-99) O2 Saturation 88 % (92-99) Arterial Blood pH 7.37 (7.35-7.45) Arterial Blood pCO2 at Patient Temp 42 mmHg (35-46) Arterial Blood pO2 at Patient Temp 58 mmHg (75-108) Arterial Blood HCO3 24 mmol/L (21-28) Arterial Blood Base Excess -2 mmol/L (-3-3) FiO2 50 Objective: Assessment: Patient seen and examined ID consult dictated Plan: Plan of Care Continue current antibiotic regimen Thank you [id number] CCT 35 minutes KAITLYNN CRAIG MD Mar 05, 2021 08:59
[2021-03-05] MEDS: NYSTATIN TOPICAL POWDER 15GM BOTTLE. TP SCH ×2 (09:00→21:26)
--- NOTE | 2021-03-05 09:42 | CONS ---
DATE OF CONSULTATION: 03/05/2021 REFERRING PHYSICIAN: Maynor Myrick MD REASON FOR CONSULTATION: Febrile illness in a patient with underlying COVID-19 infection. HISTORY OF PRESENT ILLNESS: A 46-year-old female who presented to the ER on 02/06/2021 with nausea and vomiting. The patient stated that her was recently tested positive for COVID. The patient is currently in ICU. History obtained from staff and medical records. The patient was diagnosed with COVID. She initially required BiPAP, later on was intubated. The patient was on remdesivir, steroids, initially received Rocephin and later changed to Zosyn, plan was to complete 10 days. The patient was febrile yesterday. White count is elevated. The patient was started on IV Zosyn on the . ID consultation has been requested for further evaluation and treatment. Yesterday, the nurse called me as her blood pressure was running borderline. Her creatinine was normal. I started her on vancomycin. This morning, she is afebrile. T-max was 102.2. White count is 15.4 on 03/04. PAST MEDICAL HISTORY: Diabetes, dyslipidemia, hypertension. PAST SURGICAL HISTORY: Cholecystectomy, hysterectomy, breast augmentation, abdominoplasty, right knee surgery. ALLERGIES: OXYCODONE. SOCIAL HISTORY: Nonsmoker. Lives with at home. FAMILY HISTORY: Noncontributory. CURRENT MEDICATIONS: Status post remdesivir, dexamethasone, Rocephin, Zosyn. Currently on Zosyn and IV vancomycin. Other medications reviewed in medication list. REVIEW OF SYSTEMS: Unable to obtain. PHYSICAL EXAMINATION: VITAL SIGNS: Temperature 98.9, pulse 60, respiratory rate 28, blood pressure 104/54, oxygen saturation 96% on FiO2 of 100%. GENERAL: Intubated and sedated. HEENT: Normocephalic, atraumatic. Anicteric. LUNGS: Rhonchi. HEART: S1, S2. No murmurs. ABDOMEN: Obese, soft. Bowel sounds present. Nontender, nondistended. GENITOURINARY: Kern and fecal tube in place. EXTREMITIES: No edema, no cyanosis. CENTRAL NERVOUS SYSTEM: Intubated. PSYCHIATRIC: Unable to assess. PIV looks clean. LABORATORY DATA: WBC 15.4, hemoglobin 9.2, hematocrit 28.6, platelets 241, this is on 03/04/2021. Sodium 140, potassium 4.0, chloride 106, bicarb 28, BUN 13, creatinine 1.0, glucose 181. UA negative on 02/08/2021. SARS-COVID positive. RADIOLOGY: Chest x-ray on 03/02, stable lines and tubes. No significant interval change in the mixed interstitial and airspace disease. IMPRESSION: Patient with prolonged hospitalization from COVID-19 infection 1. Febrile illness.Treated with empiric antibiotic Rocephin, followed by Zosyn for 10 days, Zosyn restarted on 02/27. 2. COVID-19 infection present on date of admission, 02/06/2021. Status post remdesivir, dexamethasone. 3. Acute hypoxic respiratory failure, status post intubation. 4. Diabetes. 5. Diarrhea. 6. Hypertension. 7. Hyperlipidemia. 8. Anemia. RECOMMENDATIONS: 1. Continue Zosyn. 2. Change vancomycin to Zyvox. 3. Check UA, urine culture, blood culture, C. diff PCR. 4. Follow up labs and cultures. 5. Continue supportive care. 6. Maintain lines 7. Continue supportive care Patient is is critically ill Prognosis guarded . Thank you, Dr. Myrick, for consulting Infectious Disease to participate in this patient's care. If you have any questions, do not hesitate to contact me. SAIGE/DEVANG STEVENSON: Asa TID: [id number] MTDD
[2021-03-05] MEDS: FAMOTIDINE 20 MG/2 ML VIAL IVP SCH ×2 (10:43→20:33)
[2021-03-05] MEDS: DOCUSATE 100 MG/10 ML SOLUTION. PO SCH ×2 (10:43→20:34)
[2021-03-05] MEDS: ACETAMINOPHEN 650 MG/20.3 ML SOLUTION. PEG PRN (10:43)
[2021-03-05] MEDS: ENOXAPARIN 40 MG/0.4 ML SYRINGE. SQ SCH ×2 (10:43→20:33)
[2021-03-05] MEDS: LINEZOLID 600 MG TABLET PO SCH ×2 (10:50→20:34)
--- NOTE | 2021-03-05 10:56 | PDOC2 ---
CONSULT Date of Consult Date of Consult DATE: 03/05/21 TIME: 10:52 Reason for Consult Reason for Consult: Repiratory failure Referring Physician Referring Physician: Dr. Elen Fiore Identification/Chief Complaint Chief Complaint none Source Source: Chart review History of Present Illness Reason for Visit: 46 yo F with respiratory failure. Unable to be weaned from ventilator. Currently stable, although has had fevers and elevated oxygen requirements. Past Medical History Cardiovascular: HTN Endocrine: Diabetes Past Surgical History Past Surgical History: Cholecystectomy, Other (breast augmentation, abdominaplasty) Family History Family History: No Significant Social History No Current Problem List Problem List Problems Medical Problems: (1) Ketoacidosis Status: Acute Current Medications Current Medications Current Medications Ondansetron HCl (Zofran Odt) 4 mg 1X ONCE PO Last administered on 02/06/21at 23:57; Start 02/06/21 at 23:30; Stop 02/06/21 at 23:31; Status DC Haloperidol Lactate (Haldol Inj) 2.5 mg 1X ONCE IM ; Start 02/07/21 at 02:30; Stop 02/07/21 at 03:56; Status DC Sodium Chloride 1,000 ml @ 1,000 mls/hr 1X ONCE IV Last administered on 02/07/21at 03:41; Start 02/07/21 at 02:30; Stop 02/07/21 at 03:29; Status DC Hydromorphone HCl (Dilaudid) 1 mg 1X ONCE IVP Last administered on 02/07/21at 04:13; Start 02/07/21 at 04:30; Stop 02/07/21 at 04:31; Status DC Sodium Chloride 1,000 ml @ 1,000 mls/hr 1X ONCE IV Last administered on 02/07/21at 10:39; Start 02/07/21 at 06:30; Stop 02/07/21 at 07:29; Status DC Insulin Human Regular 100 unit/ Sodium Chloride 101 ml @ 0 mls/hr CONT PRN PRN IV PER PROTOCOL; Start 02/07/21 at 06:00; Stop 02/07/21 at 16:54; Status DC Potassium Chloride/Water 100 ml @ 100 mls/hr PRN Q1HR PRN IV SEE COMMENTS; Start 02/07/21 at 06:00; Stop 02/07/21 at 16:54; Status DC Potassium Chloride/Water 100 ml @ 100 mls/hr PRN Q1HR PRN IV SEE COMMENTS; Start 02/07/21 at 06:00; Stop 02/07/21 at 16:54; Status DC Potassium Chloride/Water 100 ml @ 100 mls/hr PRN Q1HR PRN IV SEE COMMENTS; Start 02/07/21 at 06:00; Stop 02/07/21 at 16:54; Status DC Insulin Human Regular 100 ml @ 10 mls/hr 1X ONCE IV Last administered on 02/07/21at 09:31; Start 02/07/21 at 06:30; Stop 02/07/21 at 16:54; Status DC Sennosides (Senna) 17.2 mg PRN BID PRN PO CONSTIPATION Last administered on 02/22/21at 08:29; Start 02/07/21 at 08:45 Docusate Sodium (Colace) 100 mg PRN DAILY PRN PO HARD STOOLS; Start 02/07/21 at 08:45; Stop 02/23/21 at 10:47; Status DC Ondansetron HCl (Zofran) 4 mg PRN Q6HRS PRN IVP NAUSEA/VOMITING 1ST CHOICE Last administered on 02/16/21at 15:58; Start 02/07/21 at 08:45 Dextrose (Dextrose 50%-Water Syringe) 12.5 gm PRN Q15MIN PRN IV SEE COMMENTS; Start 02/07/21 at 08:45; Stop 02/08/21 at 16:56; Status DC Sodium Chloride 1,000 ml @ 200 mls/hr Q5H IV Last administered on 02/08/21at 04:05; Start 02/07/21 at 08:45; Stop 02/08/21 at 08:44; Status DC Acetaminophen (Tylenol) 650 mg PRN Q4HRS PRN PO FEVER > 101 Last administered on 02/13/21at 21:35; Start 02/07/21 at 08:45; Stop 02/17/21 at 10:45; Status DC Prochlorperazine Edisylate (Compazine) 10 mg PRN Q6HRS PRN IV NAUSEA/VOMITING 2ND CHOICE Last administered on 02/12/21at 10:35; Start 02/07/21 at 08:45 Insulin Glargine (Lantus Syringe) 5 unit BID SQ Last administered on 02/08/21at 10:24; Start 02/07/21 at 17:00; Stop 02/08/21 at 20:11; Status DC Insulin Human Lispro (HumaLOG) 0-7 UNITS Q4HRS SQ Last administered on 02/08/21at 00:00; Start 02/07/21 at 20:00; Stop 02/08/21 at 00:50; Status DC Dextrose (Dextrose 50%-Water Syringe) 12.5 gm PRN Q15MIN PRN IV SEE COMMENTS; Start 02/07/21 at 17:00; Stop 02/17/21 at 10:45; Status DC Ondansetron HCl (Zofran) 4 mg 1X ONCE IVP Last administered on 02/07/21at 20:06; Start 02/07/21 at 20:00; Stop 02/07/21 at 20:07; Status DC Insulin Human Lispro (HumaLOG) 0-9 UNITS Q4HRS SQ Last administered on 02/13/21at 17:36; Start 02/08/21 at 04:00; Stop 02/13/21 at 21:44; Status DC Metoclopramide HCl (Reglan Vial) 10 mg PRN Q6HRS PRN IVP NAUSEA/VOMITING 3RD CHOICE Last administered on 02/12/21at 15:51; Start 02/08/21 at 00:45 Labetalol HCl (Normodyne Iv Push) 10 mg PRN Q2HR PRN IVP HYPERTENSION, 1st choice Last administered on 02/17/21at 07:19; Start 02/08/21 at 00:45 Acetaminophen (Tylenol Supp) 650 mg PRN Q6HRS PRN AL FEVER > 101; Start 02/08/21 at 01:45; Stop 02/17/21 at 10:45; Status DC Lorazepam (Ativan Inj) 0.5 mg PRN Q6HRS PRN IVP ANXIETY / AGITATION Last administered on 02/16/21at 22:07; Start 02/08/21 at 10:00 Enalaprilat (Vasotec Inj) 0.625 mg Q6HRS IVP Last administered on 02/09/21at 13:42; Start 02/08/21 at 16:15; Stop 02/09/21 at 16:01; Status DC Insulin Glargine (Lantus Syringe) 15 unit BID SQ Last administered on 02/17/21at 20:29; Start 02/08/21 at 21:00; Stop 02/18/21 at 08:09; Status DC Insulin Human Lispro (HumaLOG) 3 units TIDAC SQ Last administered on 02/16/21at 09:10; Start 02/09/21 at 07:30; Stop 02/16/21 at 23:51; Status DC Carvedilol (Coreg) 6.25 mg BIDWMEALS PO Last administered on 02/23/21at 08:06; Start 02/08/21 at 20:30; Stop 02/23/21 at 15:50; Status DC Atorvastatin Calcium (Lipitor) 40 mg HS PO Last administered on 03/04/21at 21:10; Start 02/08/21 at 21:00 Lisinopril (Prinivil) 5 mg DAILY PO Last administered on 02/09/21at 09:48; Start 02/09/21 at 09:00; Stop 02/09/21 at 13:04; Status DC Sodium Chloride 1,000 ml @ 100 mls/hr Q10H IV Last administered on 02/16/21at 12:15; Start 02/09/21 at 07:00; Stop 02/17/21 at 15:37; Status DC Enoxaparin Sodium (Lovenox Per Pharmacy Prophylaxis Dosing) 1 each PRN DAILY PRN MC SEE COMMENTS; Start 02/09/21 at 06:45 Enoxaparin Sodium (Lovenox 40mg Syringe) 40 mg BID SQ Last administered on 03/05/21at 10:43; Start 02/09/21 at 09:00 Lisinopril (Prinivil) 10 mg DAILY PO Last administered on 02/16/21at 09:06; Start 02/10/21 at 09:00; Stop 02/17/21 at 08:29; Status DC Hydromorphone HCl (Dilaudid) 2 mg PRN Q6HRS PRN IVP PAIN Last administered on 02/15/21at 22:00; Start 02/09/21 at 17:15; Stop 02/21/21 at 05:27; Status DC Benzonatate (Tessalon Perle) 100 mg [id number] PO Last administered on 02/16/21at 22:07; Start 02/10/21 at 23:30; Stop 02/17/21 at 10:45; Status DC Guaifenesin (Robitussin Dm) 10 ml PRN Q6HRS PRN PO COUGH Last administered on 02/16/21at 09:06; Start 02/10/21 at 23:30 Remdesivir 200 mg/ Sodium Chloride 210 ml @ 210 mls/hr 1X ONCE IV Last administered on 02/11/21at 14:33; Start 02/11/21 at 13:00; Stop 02/12/21 at 11:55; Status DC Remdesivir 100 mg/ Sodium Chloride 230 ml @ 460 mls/hr Q24H IV ; Start 02/12/21 at 13:00; Stop 02/12/21 at 11:55; Status DC Hydralazine HCl (Apresoline Inj) 10 mg PRN Q4HRS PRN IVP ELEVATED BP, 2nd choice Last administered on 02/26/21at 11:23; Start 02/11/21 at 12:15 Ceftriaxone Sodium (Rocephin) 1 gm Q24H IVP Last administered on 02/11/21at 12:55; Start 02/11/21 at 12:30; Stop 02/12/21 at 11:55; Status DC Dexamethasone Sodium Phosphate (Decadron) 6 mg DAILY IVP Last administered on 02/12/21at 09:34; Start 02/11/21 at 13:00; Stop 02/12/21 at 11:55; Status DC Potassium Chloride (Klor-Con) 40 meq 1X ONCE PO Last administered on 02/13/21at 11:11; Start 02/13/21 at 10:30; Stop 02/13/21 at 10:47; Status DC Potassium Chloride (Klor-Con) 40 meq 1X ONCE PO Last administered on 02/13/21at 13:21; Start 02/13/21 at 12:00; Stop 02/13/21 at 12:01; Status DC Insulin Human Lispro (HumaLOG) 0-9 UNITS QIDACHS SQ Last administered on 02/15/21at 22:01; Start 02/14/21 at 07:30; Stop 02/16/21 at 23:51; Status DC Remdesivir 100 mg/ Sodium Chloride 230 ml @ 460 mls/hr Q24H IV Last administered on 02/18/21at 11:52; Start 02/15/21 at 12:00; Stop 02/18/21 at 12:29; Status DC Dexamethasone Sodium Phosphate (Decadron) 6 mg DAILY IVP Last administered on 02/24/21at 08:12; Start 02/15/21 at 09:00; Stop 02/25/21 at 06:41; Status DC Dexamethasone Sodium Phosphate (Decadron) 6 mg 1X ONCE IVP ; Start 02/14/21 at 12:45; Stop 02/14/21 at 12:46; Status DC Ceftriaxone Sodium (Rocephin) 1 gm Q24H IVP Last administered on 02/22/21at 12:42; Start 02/14/21 at 13:00; Stop 02/23/21 at 07:34; Status DC Azithromycin 250 mg/Sodium Chloride 250 ml @ 250 mls/hr Q24H IV Last administered on 02/18/21at 11:51; Start 02/14/21 at 13:30; Stop 02/18/21 at 14:29; Status DC Dexamethasone Sodium Phosphate (Decadron) 6 mg 1X ONCE IVP Last administered on 02/14/21at 18:17; Start 02/14/21 at 17:15; Stop 02/14/21 at 17:16; Status DC Alteplase, Recombinant (Cathflo For Central Catheter Clearance) 1 mg 1X ONCE INT CAT Last administered on 02/16/21at 08:41; Start 02/16/21 at 08:00; Stop 02/16/21 at 08:01; Status DC Dexmedetomidine HCl 400 mcg/ Sodium Chloride 100 ml @ 0 mls/hr CONT PRN IV PER PROTOCOL Last administered on 02/17/21at 20:27; Start 02/16/21 at 12:00; Stop 02/27/21 at 09:37; Status DC Sodium Chloride 500 ml @ 500 mls/hr 1X PRN PRN IV SEE COMMENTS; Start 02/16/21 at 12:00 Atropine Sulfate (ATROPINE 0.5mg SYRINGE) 0.5 mg PRN Q5MIN PRN IV SEE COMMENTS; Start 02/16/21 at 12:00 Lactobacillus Rhamnosus (Culturelle) 1 cap BID PO Last administered on 02/16/21at 22:02; Start 02/16/21 at 21:00; Stop 02/17/21 at 10:45; Status DC Famotidine (Pepcid Vial) 20 mg BID IVP Last administered on 03/05/21at 10:43; Start 02/16/21 at 21:00 Furosemide (Lasix) 20 mg 1X ONCE IVP Last administered on 02/16/21at 18:38; Start 02/16/21 at 18:30; Stop 02/16/21 at 18:34; Status DC Furosemide (Lasix) 20 mg 1X ONCE IVP Last administered on 02/16/21at 22:18; Start 02/16/21 at 22:15; Stop 02/16/21 at 22:16; Status DC Insulin Human Lispro (HumaLOG) 3 units Q6HRS SQ Last administered on 02/18/21at 05:40; Start 02/17/21 at 00:00; Stop 02/18/21 at 08:09; Status DC Insulin Human Lispro (HumaLOG) 0-9 UNITS Q6HRS SQ Last administered on 03/04/21at 18:33; Start 02/17/21 at 00:00 Lisinopril (Prinivil) 20 mg DAILY PO Last administered on 02/27/21at 09:10; Start 02/17/21 at 09:00 Fentanyl Citrate 30 ml @ 0 mls/hr CONT PRN IV SEE PROTOCOL Last administered on 03/05/21at 06:58; Start 02/17/21 at 10:00 Propofol 100 ml @ 0 mls/hr CONT PRN IV PER PROTOCOL Last administered on 03/05/21at 10:44; Start 02/17/21 at 10:00 Glycerin/ Hypromellose/ Polyethylene (Artificial Tears) 1 drop PRN Q1HR PRN OU DRY EYE; Start 02/17/21 at 10:00 Midazolam HCl 100 ml @ 0 mls/hr CONT PRN IV SEE PROTOCOL Last administered on 03/05/21at 04:59; Start 02/17/21 at 10:00 Succinylcholine Chloride (Anectine) 200 mg STK-MED ONCE .ROUTE ; Start 02/17/21 at 09:58; Stop 02/17/21 at 09:58; Status DC Acetaminophen (Tylenol) 650 mg PRN Q6HRS PRN PEG MILD PAIN / TEMP > 100.3'F Last administered on 03/05/21at 10:43; Start 02/17/21 at 10:45 Insulin Glargine (Lantus Syringe) 20 unit BID SQ Last administered on 02/18/21at 20:54; Start 02/18/21 at 09:00; Stop 02/19/21 at 07:47; Status DC Insulin Human Lispro (HumaLOG) 5 units Q6HRS SQ Last administered on 02/19/21at 06:23; Start 02/18/21 at 12:00; Stop 02/19/21 at 07:47; Status DC Insulin Glargine (Lantus Syringe) 25 unit BID SQ Last administered on 02/27/21at 20:42; Start 02/19/21 at 09:00; Stop 02/28/21 at 09:34; Status DC Insulin Human Lispro (HumaLOG) 8 units Q6HRS SQ Last administered on 02/19/21at 11:33; Start 02/19/21 at 12:00; Stop 02/19/21 at 12:32; Status DC Insulin Human Lispro (HumaLOG) 10 units Q6HRS SQ Last administered on 02/20/21at 06:38; Start 02/19/21 at 18:00; Stop 02/20/21 at 08:14; Status DC Insulin Human Lispro (HumaLOG) 12 units Q6HRS SQ Last administered on 02/27/21at 05:41; Start 02/20/21 at 12:00; Stop 02/28/21 at 15:38; Status DC Piperacillin Sod/ Tazobactam Sod (Zosyn Per Pharmacy) 1 each PRN DAILY PRN MC SEE COMMENTS; Start 02/23/21 at 07:45 Piperacillin Sod/ Tazobactam Sod 4.5 gm/Sodium Chloride 100 ml @ 200 mls/hr Q6HRS IV Last administered on 03/05/21at 10:50; Start 02/23/21 at 08:00 Docusate Sodium (Colace Solution) 100 mg BID PO Last administered on 03/05/21at 10:43; Start 02/23/21 at 12:00 Amlodipine Besylate (Norvasc) 5 mg DAILY NG Last administered on 02/27/21at 09:10; Start 02/24/21 at 09:00 Methylprednisolone Sodium Succinate (SOLU-Medrol 125MG VIAL) 80 mg Q8HRS IV Last administered on 02/26/21at 05:52; Start 02/25/21 at 09:00; Stop 02/26/21 at 07:09; Status DC Succinylcholine Chloride (Anectine) 200 mg STK-MED ONCE .ROUTE ; Start 02/17/21 at 10:00; Stop 02/25/21 at 08:40; Status DC Dexamethasone Sodium Phosphate (Decadron) 4 mg 1X ONCE IVP ; Start 02/26/21 at 10:00; Stop 02/26/21 at 07:15; Status DC Dexamethasone Sodium Phosphate (Decadron) 2 mg 1X ONCE IVP ; Start 02/27/21 at 09:00; Stop 02/26/21 at 07:15; Status DC Dexmedetomidine HCl 400 mcg/ Sodium Chloride 100 ml @ 0 mls/hr CONT PRN IV PER PROTOCOL Last administered on 03/05/21at 05:01; Start 02/27/21 at 09:45 Sodium Chloride 500 ml @ 500 mls/hr 1X PRN PRN IV SEE COMMENTS; Start 02/27/21 at 09:45; Status Cancel Alteplase, Recombinant (Cathflo) 2 mg 1X ONCE INT CAT Last administered on 02/27/21at 11:20; Start 02/27/21 at 11:00; Stop 02/27/21 at 11:01; Status DC Alteplase, Recombinant (Cathflo For Central Catheter Clearance) 1 mg 1X ONCE INT CAT Last administered on 02/27/21at 15:18; Start 02/27/21 at 14:30; Stop 02/27/21 at 14:36; Status DC Alteplase, Recombinant (Cathflo For Central Catheter Clearance) 1 mg 1X ONCE INT CAT Last administered on 02/27/21at 15:19; Start 02/27/21 at 14:30; Stop 02/27/21 at 14:36; Status DC Dextrose (Dextrose 50%-Water Syringe) 25 gm STK-MED ONCE IV ; Start 02/27/21 at 23:48; Stop 02/27/21 at 23:48; Status DC Dextrose (Dextrose 50%-Water Syringe) 25 gm 1X ONCE IV Last administered on 02/27/21at 23:55; Start 02/28/21 at 00:00; Stop 02/28/21 at 00:01; Status DC Insulin Glargine (Lantus Syringe) 20 unit BID SQ Last administered on 02/28/21at 21:06; Start 02/28/21 at 10:00; Stop 03/01/21 at 14:18; Status DC Dextrose (Dextrose 50%-Water Syringe) 12.5 gm PRN Q15MIN PRN IV SEE COMMENTS Last administered on 03/01/21at 12:55; Start 03/01/21 at 13:00 Insulin Glargine (Lantus Syringe) 15 unit QHS SQ Last administered on 03/04/21at 21:00; Start 03/01/21 at 21:00 Nystatin (Nystop) 1 reji BID TP Last administered on 03/05/21at 09:00; Start 03/02/21 at 21:00 Vancomycin HCl 1 gm/Sodium Chloride 250 ml @ 250 mls/hr Q12H IV ; Start 03/04/21 at 20:00; Status UNV Vancomycin HCl 2 gm/Sodium Chloride 500 ml @ 250 mls/hr 1X ONCE IV Last administered on 03/04/21at 19:26; Start 03/04/21 at 19:00; Stop 03/04/21 at 20: 59; Status DC Vancomycin HCl (Vanco Per Pharmacy) 1 each PRN DAILY PRN MC SEE COMMENTS Last administered on 03/04/21at 19:47; Start 03/04/21 at 18:30; Stop 03/05/21 at 08:59; Status DC Vancomycin HCl 1.5 gm/Sodium Chloride 500 ml @ 250 mls/hr Q12H IV ; Start 03/05/21 at 07:30; Stop 03/05/21 at 08:58; Status DC Vancomycin HCl (Vancomycin Trough Level) 1 each 1X ONCE MC ; Start 03/06/21 at 07:00; Stop 03/06/21 at 07:01; Status Cancel Linezolid (Zyvox) 600 mg BID PO Last administered on 03/05/21at 10:50; Start 03/05/21 at 09:00 Active Scripts Active Reported Novolog Flexpen (Insulin Aspart) 100 Unit/1 Ml Insuln.pen 3-7 SQ TIDACHC Lisinopril 5 Mg Tablet 1 Tab PO DAILY Lantus Solostar (Insulin Glargine,Hum.rec.anlog) 100 Unit/1 Ml Insuln.pen 5 Unit SQ QHS Atorvastatin Calcium 40 Mg Tablet 40 Mg PO HS Allergies Allergies: Coded Allergies: venom-honey bee (Verified Allergy, Severe, Shortness of Air, 04/21/15) oxycodone (Unverified Allergy, Intermediate, Itching, 04/21/15) shellfish derived (Unverified Allergy, Intermediate, Itching, 04/21/15) ROS Review of System unobtainable Physical Exam General: No acute distress HEENT: Atraumatic, Other (orally intubated) Vitals VITALS Vital Signs Date Time Temp Pulse Resp B/P (MAP) Pulse Ox O2 Delivery O2 Flow Rate FiO2 03/05/21 08:05 96 Ventilator 03/05/21 06:58 15.0 03/05/21 06:00 68 28 104/54 (71) 03/05/21 04:00 98.9 98.9 Labs Labs Laboratory Tests Test 03/03/21 13:10 03/03/21 19:26 03/03/21 21:18 03/03/21 23:30 Glucose (Fingerstick) 189 mg/dL (70-99) 137 mg/dL (70-99) 124 mg/dL (70-99) 183 mg/dL (70-99) Test 03/04/21 05:39 03/04/21 05:45 03/04/21 08:16 03/04/21 12:41 Glucose (Fingerstick) 176 mg/dL (70-99) 227 mg/dL (70-99) White Blood Count 15.4 x10^3/uL (4.0-11.0) Red Blood Count 3.20 x10^6/uL (3.50-5.40) Hemoglobin 9.2 g/dL (12.0-15.5) Hematocrit 28.6 % (36.0-47.0) Mean Corpuscular Volume 89 fL (79-100) Mean Corpuscular Hemoglobin 29 pg (25-35) Mean Corpuscular Hemoglobin Concent 32 g/dL (31-37) Red Cell Distribution Width 13.3 % (11.5-14.5) Platelet Count 241 x10^3/uL (140-400) Neutrophils (%) (Auto) 79 % (31-73) Lymphocytes (%) (Auto) 9 % (24-48) Monocytes (%) (Auto) 7 % (0-9) Eosinophils (%) (Auto) 4 % (0-3) Basophils (%) (Auto) 0 % (0-3) Neutrophils # (Auto) 12.2 x10^3/uL (1.8-7.7) Lymphocytes # (Auto) 1.4 x10^3/uL (1.0-4.8) Monocytes # (Auto) 1.1 x10^3/uL (0.0-1.1) Eosinophils # (Auto) 0.6 x10^3/uL (0.0-0.7) Basophils # (Auto) 0.1 x10^3/uL (0.0-0.2) Sodium Level 140 mmol/L (136-145) Potassium Level 4.0 mmol/L (3.5-5.1) Chloride Level 106 mmol/L (98-107) Carbon Dioxide Level 28 mmol/L (21-32) Anion Gap 6 (6-14) Blood Urea Nitrogen 13 mg/dL (7-20) Creatinine 1.0 mg/dL (0.6-1.0) Estimated GFR (Cockcroft-Gault) 60.0 Glucose Level 181 mg/dL (70-99) Calcium Level 8.1 mg/dL (8.5-10.1) O2 Saturation 84 % (92-99) Arterial Blood pH 7.37 (7.35-7.45) Arterial Blood pCO2 at Patient Temp 45 mmHg (35-46) Arterial Blood pO2 at Patient Temp 52 mmHg (75-108) Arterial Blood HCO3 25 mmol/L (21-28) Arterial Blood Base Excess 0 mmol/L (-3-3) FiO2 40 Test 03/04/21 18:32 03/04/21 21:15 03/04/21 23:47 03/05/21 05:46 Glucose (Fingerstick) 169 mg/dL (70-99) 130 mg/dL (70-99) 121 mg/dL (70-99) 137 mg/dL (70-99) Test 03/05/21 08:25 O2 Saturation 88 % (92-99) Arterial Blood pH 7.37 (7.35-7.45) Arterial Blood pCO2 at Patient Temp 42 mmHg (35-46) Arterial Blood pO2 at Patient Temp 58 mmHg (75-108) Arterial Blood HCO3 24 mmol/L (21-28) Arterial Blood Base Excess -2 mmol/L (-3-3) FiO2 50 Laboratory Tests Test 03/04/21 12:41 03/04/21 18:32 03/04/21 21:15 03/04/21 23:47 Glucose (Fingerstick) 227 mg/dL (70-99) 169 mg/dL (70-99) 130 mg/dL (70-99) 121 mg/dL (70-99) Test 03/05/21 05:46 03/05/21 08:25 Glucose (Fingerstick) 137 mg/dL (70-99) O2 Saturation 88 % (92-99) Arterial Blood pH 7.37 (7.35-7.45) Arterial Blood pCO2 at Patient Temp 42 mmHg (35-46) Arterial Blood pO2 at Patient Temp 58 mmHg (75-108) Arterial Blood HCO3 24 mmol/L (21-28) Arterial Blood Base Excess -2 mmol/L (-3-3) FiO2 50 Images Images CXR b infiltrates Assessment/Plan Assessment/Plan respiratory failure cont care per pulm tentatively plan tracheostomy on 04/09 Thanks for consult! DANIEL ACHARYA MD Mar 05, 2021 10:56
[2021-03-05 11:26] LABS: BASO # 0.1 x10^3/uL (0.0-0.2); BASO % 1 % (0-3); EOS # 0.9 x10^3/uL (0.0-0.7); EOS % 6 % (0-3); HEMATOCRIT 24.7 % (36.0-47.0); LYMPH # 1.2 x10^3/uL (1.0-4.8); LYMPH % 8 % (24-48); MEAN CORPUSCULAR HEMOGLOBIN 29 pg (25-35); MEAN CORPUSCULAR HGB CONC 32 g/dL (31-37); MEAN CORPUSCULAR VOLUME 91 fL (79-100); MONO # 1.1 x10^3/uL (0.0-1.1); MONO % 7 % (0-9); NEUT # 11.3 x10^3/uL (1.8-7.7); NEUT % 78 % (31-73); PLATELET COUNT 196 x10^3/uL (140-400); RED BLOOD COUNT 2.73 x10^6/uL (3.50-5.40); RED CELL DISTRIBUTION WIDTH 13.6 % (11.5-14.5); WHITE BLOOD COUNT 14.5 x10^3/uL (4.0-11.0)
[2021-03-05 11:43] LABS: ALBUMIN 1.2 g/dL (3.4-5.0); ALBUMIN/GLOBULIN RATIO 0.3 (1.0-1.7); CALCIUM 7.6 mg/dL (8.5-10.1); CREATININE 1.5 mg/dL (0.6-1.0); GFR 37.6; POTASSIUM 3.6 mmol/L (3.5-5.1); TOTAL BILIRUBIN 0.4 mg/dL (0.2-1.0); TOTAL PROTEIN 5.6 g/dL (6.4-8.2)
--- NOTE | 2021-03-05 11:53 | PDOC ---
PULMONARY PROGRESS NOTES DATE: 03/05/21 TIME: 11:51 Subjective Patient remains on vent support 40% and PEEP of 5 unable to tolerate weaning Afebrile No overnight concerns from nursing, Vitals Vital Signs Date Time Temp Pulse Resp B/P (MAP) Pulse Ox O2 Delivery O2 Flow Rate FiO2 03/05/21 08:05 96 Ventilator 03/05/21 06:58 15.0 03/05/21 06:00 68 28 104/54 (71) 03/05/21 04:00 98.9 98.9 Comments Visual exam done due to COVID-19. intubated NC AT RRR no accessory muscle use abd obese No skin rash or leg edema. Labs Laboratory Tests Test 03/03/21 13:10 03/03/21 19:26 03/03/21 21:18 03/03/21 23:30 Glucose (Fingerstick) 189 mg/dL (70-99) 137 mg/dL (70-99) 124 mg/dL (70-99) 183 mg/dL (70-99) Test 03/04/21 05:39 03/04/21 05:45 03/04/21 08:16 03/04/21 12:41 Glucose (Fingerstick) 176 mg/dL (70-99) 227 mg/dL (70-99) White Blood Count 15.4 x10^3/uL (4.0-11.0) Red Blood Count 3.20 x10^6/uL (3.50-5.40) Hemoglobin 9.2 g/dL (12.0-15.5) Hematocrit 28.6 % (36.0-47.0) Mean Corpuscular Volume 89 fL (79-100) Mean Corpuscular Hemoglobin 29 pg (25-35) Mean Corpuscular Hemoglobin Concent 32 g/dL (31-37) Red Cell Distribution Width 13.3 % (11.5-14.5) Platelet Count 241 x10^3/uL (140-400) Neutrophils (%) (Auto) 79 % (31-73) Lymphocytes (%) (Auto) 9 % (24-48) Monocytes (%) (Auto) 7 % (0-9) Eosinophils (%) (Auto) 4 % (0-3) Basophils (%) (Auto) 0 % (0-3) Neutrophils # (Auto) 12.2 x10^3/uL (1.8-7.7) Lymphocytes # (Auto) 1.4 x10^3/uL (1.0-4.8) Monocytes # (Auto) 1.1 x10^3/uL (0.0-1.1) Eosinophils # (Auto) 0.6 x10^3/uL (0.0-0.7) Basophils # (Auto) 0.1 x10^3/uL (0.0-0.2) Sodium Level 140 mmol/L (136-145) Potassium Level 4.0 mmol/L (3.5-5.1) Chloride Level 106 mmol/L (98-107) Carbon Dioxide Level 28 mmol/L (21-32) Anion Gap 6 (6-14) Blood Urea Nitrogen 13 mg/dL (7-20) Creatinine 1.0 mg/dL (0.6-1.0) Estimated GFR (Cockcroft-Gault) 60.0 Glucose Level 181 mg/dL (70-99) Calcium Level 8.1 mg/dL (8.5-10.1) O2 Saturation 84 % (92-99) Arterial Blood pH 7.37 (7.35-7.45) Arterial Blood pCO2 at Patient Temp 45 mmHg (35-46) Arterial Blood pO2 at Patient Temp 52 mmHg (75-108) Arterial Blood HCO3 25 mmol/L (21-28) Arterial Blood Base Excess 0 mmol/L (-3-3) FiO2 40 Test 03/04/21 18:32 03/04/21 21:15 03/04/21 23:47 03/05/21 05:46 Glucose (Fingerstick) 169 mg/dL (70-99) 130 mg/dL (70-99) 121 mg/dL (70-99) 137 mg/dL (70-99) Test 03/05/21 08:25 03/05/21 11:15 O2 Saturation 88 % (92-99) Arterial Blood pH 7.37 (7.35-7.45) Arterial Blood pCO2 at Patient Temp 42 mmHg (35-46) Arterial Blood pO2 at Patient Temp 58 mmHg (75-108) Arterial Blood HCO3 24 mmol/L (21-28) Arterial Blood Base Excess -2 mmol/L (-3-3) FiO2 50 White Blood Count 14.5 x10^3/uL (4.0-11.0) Red Blood Count 2.73 x10^6/uL (3.50-5.40) Hemoglobin 8.0 g/dL (12.0-15.5) Hematocrit 24.7 % (36.0-47.0) Mean Corpuscular Volume 91 fL (79-100) Mean Corpuscular Hemoglobin 29 pg (25-35) Mean Corpuscular Hemoglobin Concent 32 g/dL (31-37) Red Cell Distribution Width 13.6 % (11.5-14.5) Platelet Count 196 x10^3/uL (140-400) Neutrophils (%) (Auto) 78 % (31-73) Lymphocytes (%) (Auto) 8 % (24-48) Monocytes (%) (Auto) 7 % (0-9) Eosinophils (%) (Auto) 6 % (0-3) Basophils (%) (Auto) 1 % (0-3) Neutrophils # (Auto) 11.3 x10^3/uL (1.8-7.7) Lymphocytes # (Auto) 1.2 x10^3/uL (1.0-4.8) Monocytes # (Auto) 1.1 x10^3/uL (0.0-1.1) Eosinophils # (Auto) 0.9 x10^3/uL (0.0-0.7) Basophils # (Auto) 0.1 x10^3/uL (0.0-0.2) Sodium Level 140 mmol/L (136-145) Potassium Level 3.6 mmol/L (3.5-5.1) Chloride Level 108 mmol/L (98-107) Carbon Dioxide Level 23 mmol/L (21-32) Anion Gap 9 (6-14) Blood Urea Nitrogen 20 mg/dL (7-20) Creatinine 1.5 mg/dL (0.6-1.0) Estimated GFR (Cockcroft-Gault) 37.6 BUN/Creatinine Ratio 13 (6-20) Glucose Level 159 mg/dL (70-99) Calcium Level 7.6 mg/dL (8.5-10.1) Total Bilirubin 0.4 mg/dL (0.2-1.0) Aspartate Amino Transf (AST/SGOT) 42 U/L (15-37) Alanine Aminotransferase (ALT/SGPT) 25 U/L (14-59) Alkaline Phosphatase 90 U/L (46-116) Total Protein 5.6 g/dL (6.4-8.2) Albumin 1.2 g/dL (3.4-5.0) Albumin/Globulin Ratio 0.3 (1.0-1.7) Laboratory Tests Test 03/04/21 12:41 03/04/21 18:32 03/04/21 21:15 03/04/21 23:47 Glucose (Fingerstick) 227 mg/dL (70-99) 169 mg/dL (70-99) 130 mg/dL (70-99) 121 mg/dL (70-99) Test 03/05/21 05:46 03/05/21 08:25 03/05/21 11:15 Glucose (Fingerstick) 137 mg/dL (70-99) O2 Saturation 88 % (92-99) Arterial Blood pH 7.37 (7.35-7.45) Arterial Blood pCO2 at Patient Temp 42 mmHg (35-46) Arterial Blood pO2 at Patient Temp 58 mmHg (75-108) Arterial Blood HCO3 24 mmol/L (21-28) Arterial Blood Base Excess -2 mmol/L (-3-3) FiO2 50 White Blood Count 14.5 x10^3/uL (4.0-11.0) Red Blood Count 2.73 x10^6/uL (3.50-5.40) Hemoglobin 8.0 g/dL (12.0-15.5) Hematocrit 24.7 % (36.0-47.0) Mean Corpuscular Volume 91 fL (79-100) Mean Corpuscular Hemoglobin 29 pg (25-35) Mean Corpuscular Hemoglobin Concent 32 g/dL (31-37) Red Cell Distribution Width 13.6 % (11.5-14.5) Platelet Count 196 x10^3/uL (140-400) Neutrophils (%) (Auto) 78 % (31-73) Lymphocytes (%) (Auto) 8 % (24-48) Monocytes (%) (Auto) 7 % (0-9) Eosinophils (%) (Auto) 6 % (0-3) Basophils (%) (Auto) 1 % (0-3) Neutrophils # (Auto) 11.3 x10^3/uL (1.8-7.7) Lymphocytes # (Auto) 1.2 x10^3/uL (1.0-4.8) Monocytes # (Auto) 1.1 x10^3/uL (0.0-1.1) Eosinophils # (Auto) 0.9 x10^3/uL (0.0-0.7) Basophils # (Auto) 0.1 x10^3/uL (0.0-0.2) Sodium Level 140 mmol/L (136-145) Potassium Level 3.6 mmol/L (3.5-5.1) Chloride Level 108 mmol/L (98-107) Carbon Dioxide Level 23 mmol/L (21-32) Anion Gap 9 (6-14) Blood Urea Nitrogen 20 mg/dL (7-20) Creatinine 1.5 mg/dL (0.6-1.0) Estimated GFR (Cockcroft-Gault) 37.6 BUN/Creatinine Ratio 13 (6-20) Glucose Level 159 mg/dL (70-99) Calcium Level 7.6 mg/dL (8.5-10.1) Total Bilirubin 0.4 mg/dL (0.2-1.0) Aspartate Amino Transf (AST/SGOT) 42 U/L (15-37) Alanine Aminotransferase (ALT/SGPT) 25 U/L (14-59) Alkaline Phosphatase 90 U/L (46-116) Total Protein 5.6 g/dL (6.4-8.2) Albumin 1.2 g/dL (3.4-5.0) Albumin/Globulin Ratio 0.3 (1.0-1.7) Medications Active Scripts Medications Dose Route/Sig Max Daily Dose Days Date Category Novolog Flexpen (Insulin Aspart) 100 Unit/1 Ml Insuln.pen 3-7 SQ TIDACHC 02/07/21 Reported Lisinopril 5 Mg Tablet 1 Tab PO DAILY 02/07/21 Reported Lantus Solostar (Insulin Glargine,Hum.rec.anlog) 100 Unit/1 Ml Insuln.pen 5 Unit SQ QHS 04/09/15 Reported Atorvastatin Calcium 40 Mg Tablet 40 Mg PO HS 04/09/15 Reported Impression . IMPRESSION: 1. Acute hypoxic respiratory failure secondary to COVID-19 viral pneumonia/acute lung injury and early acute respiratory distress syndrome. S/P intubation 02/17/21,--slowly improving 2. Nonsmoker. 3. Abnormal chest x-ray consistent with COVID-19 viral pneumonia.--- Improving 4. Diabetic ketoacidosis as initial presentation, currently better.--resolved 5. Underlying obesity contributing to hypoxia as well. 6. BOB Plan . Updated 03/05/2021 Continue current ventilatory support 18/450/40/5, pt. still unable to tolerate sedation vacation/weaning trial Follow-up surgery recommendations for tracheostomy Follow chest x-ray/ABG as needed--marginal PO2 no room for weaning Follow infectious disease recommendations in regards to antibiotics S/P remdesivir for full course, has also completed full course of steroids Continue tube feeding for nutritional support DVT/GI prophylaxis: Lovenox Discussed with RN and R Critical care time 30 minutes LY MITCHELL APRN Mar 05, 2021 11:53
--- NOTE | 2021-03-05 12:59 | PDOC ---
[facility] PROGRESS NOTE Date of Service DOS: DATE: 03/05/21 TIME: 12:57 Chief Complaint Chief Complaint Hypotension COVID-19 positive infection Tractable nausea vomiting DKA Anion gap metabolic acidosis Acute electrolyte derangementhyponatremia, hypochloremia due to volume depletion Hyperglycemia uncontrolled BOB due to vasomotor nephropathy Erythrocytosis Reglan for diabetic gastroparesis Continue Covid measures Patient intubated Pulmonary following SCD for DVT prophylaxis Protonix GI prophylaxis ADA diet Full code Discussed with RN and SW Disposition inpatient management as above Surrogate decision maker is Brian Whitmore History of Present Illness History of Present Illness 46 year old female who presents with nausea/vomiting since 7 AM yesterday morning. Patient states that her recently tested positive for Covid. She states that he "coughed in my face because he thought it was funny." She reports subjective fevers and chills and nausea/vomiting. Denies sore throat, cough, shortness of breath. No chest pain. Does have some upper abdominal discomfort after vomiting, that she attributes to muscular strain. She is not vaccinated for Covid. 02/08/2021 No acute events overnight. Patient seen and examined bedside and resting comfortably. Continues to complain of nausea not able to tolerate any diet at this time. Saturating 98% on room air. Patient's chart, labs, images were reviewed and discussed with RN 02/09/2021: Afebrile, currently breathing on room air. Still with complaints of nausea and vomiting x3 today. States that she has history of similar symptoms that have been mildly improved with IV Dilaudid. Discussed with patient that I will provide IV Dilaudid to help with her nausea, but she will not discharged on this medication. Will obtain 6-minute walk to evaluate oxygen requirements. Upon discharge, I recommend self quarantine for 10 days for resolution of her symptoms. Discussed with patient that she will discharge tomorrow. 02/10/2021: Patient febrile today with T-max 102.2 F. She still admits to nausea, denies any further vomiting. We will continue to provide supportive care and monitor for any recurrent fevers overnight. Patient continues to improve may discharge tomorrow to continue self-isolation. 02/11/2021: Febrile overnight, T-max 102.3 F. She did become hypoxic overnight, currently breathing on 4 L nasal cannula. Also admits to associated vomiting or diarrhea overnight. Discussed with RN, will initiate remdesivir and closely monitor LFTs. We will also treat with IV Decadron, and prophylactic antibiotics. 02/12/2021: Low-grade fever overnight, T-max 99.7. Currently breathing on room air. Will discontinue remdesivir, steroids, and antibiotics; will observe overnight. Still with complaints of vomiting x1 and diarrhea. We will continue to provide supportive care and hope to discharge in the next day or so. 02/13/2021: Afebrile. Still complains of intermittent diarrhea. At the time of my evaluation she was breathing on 6 L nasal cannula; this is somewhat misleading as patient states that she did not feel short of breath but was placed on 6 L by nursing staff overnight. Will have RN reassess her oxygen requirements as I did anticipate discharging today. 02/14/2021: Afebrile, currently breathing on 8 L nasal cannula. There has been some misleading documentation, chart oxygen this patient is requiring. Discussed with RN, will resume remdesivir to complete total of 5 days. Continue to monitor LFTs. Will add steroids, Rocephin, and azithromycin. Continue supportive care. 02/15/2021: Afebrile. Became much more hypoxic overnight, requiring BiPAP. At the time of my evaluation she is still breathing on BiPAP. Consultation was placed to pulmonology. Had discussion with Dr. Myrick about initiating Tocilizumab, but currently there is 1 more person in the ER that would be more deserving. When stocks are replenished, she will be first inline to receive this medication. She is also first-line to be transferred down to ICU. Critical care time 30 minutes spent reviewing labs, reviewing imaging, discussio n with Dr. Myrick, and discussion with RN. 02/16/2021 No acute events overnight. Patient becoming more hypoxic saturating 94% and requiring BiPAP. Patient will be transferred to the ICU at this time. For worsening clinical status. Discussed with pulmonary. Patient's chart, labs, images were reviewed and discussed with RN 02/17/21 Transferred to ICU yesterday afternoon. Seen and examined at bedside she remains on 100% FiO2 on BiPAP. Respirations do appear somewhat labored. Suspect intubation may be impending. We will closely monitor. Increase lisinopril to 20 today. Plan of care discussed with bedside RN. 02/18/21 Patient required intubation yesterday afternoon. Saw and examined this morning. She is intubated and sedated. Increase insulin today. Covid protocol ordered. Wean as tolerated. Plan of care discussed with bedside nurse. 02/19/21 Bedside. She remains intubated and sedated. Continue Covid protocol. Wean oxygen sedation as tolerated. Pulmonary following. Plan of care discussed with bedside RN. 02/20/21 Patient seen and examined at bedside. She remains intubated and sedated. No major clinical changes. Continue current treatment. Pulmonary following. Plan of care discussed with bedside RN. 02/21/21 Patient seen and examined at bedside. Remains intubated and sedated date and admission clinical changes. Increase free water flushes today due to hypernatremia. Plan of care discussed with bedside nurse. 02/22/21 Patient seen and examined at bedside. O2 requirement actually improving, althou gh remains intubated. Possible SBT in the coming days. Hypernatremia improving. Plan of care discussed bedside RN. 02/23/2021: Patient remains in ICU on ventilator with FiO2 100%, PEEP 7. Repeat chest x-ray yesterday showed diffuse bilateral pulmonary opacities with no interval improvement. Will discontinue Rocephin and initiate Zosyn. We will continue IV steroids for a full 10-day course (to be completed 02/25/2021). Completed remdesivir. Continue supportive care. Critical care time 30 minutes spent reviewing charts, reviewing imaging, reviewing labs, discussion with RN. 02/24/2021: Afebrile. On vent with FiO2 40%, PEEP 6. Her Coreg has been held due to persistent bradycardia. No documented history of systolic heart failure or previous echocardiogram. Will need to obtain echocardiogram prior to discharge. Continue IV steroids and antibiotics. 02/25/2021: Afebrile. Remains ventilated with FiO2 45%, PEEP 6. Chest x-ray today showed slight improvement of the pulmonary infiltrates, no pneumothorax. Completed 10-day course of IV Decadron. Will initiate slow Solu-Medrol taper. Continue IV Zosyn. Continue supportive care. Will need echocardiogram prior to discharge to evaluate heart failure. Critical care time 30 minutes spent reviewing charts, reviewing imaging, reviewing labs, discussion with RN. 02/26/2021: Afebrile. On vent with FiO2 45%, PEEP 6. Completed 10 days of IV Decadron. Will continue IV Zosyn. Continue supportive care. Critical care time 30 minutes spent reviewing charts, reviewing imaging, reviewing labs, discussion with RN. 02/27/2021: Afebrile. On vent with FiO2 45%, PEEP 6. Completed 10 days of stero ids and completed remdesivir. Continue with IV Zosyn. CPAP trial yesterday. Continue NG tube and supportive care. Critical care time 30 minutes spent reviewing charts, reviewing imaging, reviewing labs, discussion with RN. 02/28/2021:. Patient remains on vent with FiO2 40%, PEEP 5. Afebrile. Completed steroids and remdesivir. Some noted hypoglycemia overnight, will de-escalate basal insulin. Continue IV Zosyn. Ventilator management per pulmonology. Continue NG tube and supportive care. Critical care time 30 minutes spent reviewing charts, reviewing imaging, reviewing labs, discussion with RN. 03/01/2021: On vent with FiO2 40%, PEEP 5. Afebrile. Completed steroids and remdesivir. Blood glucose well controlled. Continue empiric antibiotics with Zosyn. Ventilator management per pulmonology. Continue NG tube and supportive care. Critical care time 30 minutes spent reviewing charts, reviewing imaging, reviewing labs, discussion with RN. 03/02/2021 No acute events overnight. Patient hypotensive the morning due to oversedation. Will wean off sedation and keep antihypertensive medications on board. Currently saturating 100% on vent settings of 18/450/40/5. Will attempt spontaneous breathing trial today to see how patient does. Defer this management to pulmonary. Patient's chart, labs, images were reviewed and discussed with RN A total of 36 minutes of critical care time was spent in reviewing chart, labs, and images. Discussed with RN and SW. 03/03/2021 No acute events overnight. Patient saturating 98% on vent settings of 18/450/40/5. Will defer spontaneous breathing trials to pulmonary at this time. Patient's chart, labs, images were reviewed and discussed with RN A total of 37 minutes of critical care time was spent in reviewing chart, labs, and images. Discussed with RN and KIRBY. 03/04/2021 No acute events overnight. Patient saturating 9 9% on vent settings of 18/450 /30/5. Patient currently is unable to tolerate weaning. Per pulmonary. Patient's chart, labs, images were reviewed and discussed with RN A total of 34 minutes of critical care time was spent in reviewing chart, labs, and images. Discussed with RN and SW. 03/05/2021 No acute events overnight. Patient is saturating 97% on vent settings of 18/450/55/5. Her FiO2 needs to be increased due to abnormal ABG with 7.3 //58/24. Patient's chart, labs, images were reviewed and discussed with RN A total of 35 minutes of critical care time was spent in reviewing chart, labs, and images. Discussed with RN and SW. Vitals/I&O Vitals/I&O: Vital Signs Date Time Temp Pulse Resp B/P (MAP) Pulse Ox O2 Delivery O2 Flow Rate FiO2 03/05/21 12:14 97 Ventilator 03/05/21 06:58 15.0 03/05/21 06:00 68 28 104/54 (71) 03/05/21 04:00 98.9 98.9 I & O 03/04/21 03/04/21 03/05/21 15:00 23:00 07:00 Intake Total 400 ml 1698.62 ml 1326 ml Output Total 475 ml 475 ml 375 ml Balance -75 ml 1223.62 ml 951 ml Physical Exam General: No acute distress, Other (Intubated and sedated) Heart: Regular rate Abdomen: Normal bowel sounds Extremities: No clubbing, No edema Skin: No rashes, No significant lesion Labs Labs: Laboratory Tests Test 03/04/21 18:32 03/04/21 21:15 03/04/21 23:47 03/05/21 05:46 Glucose (Fingerstick) 169 mg/dL (70-99) 130 mg/dL (70-99) 121 mg/dL (70-99) 137 mg/dL (70-99) Test 03/05/21 08:25 03/05/21 11:15 O2 Saturation 88 % (92-99) Arterial Blood pH 7.37 (7.35-7.45) Arterial Blood pCO2 at Patient Temp 42 mmHg (35-46) Arterial Blood pO2 at Patient Temp 58 mmHg (75-108) Arterial Blood HCO3 24 mmol/L (21-28) Arterial Blood Base Excess -2 mmol/L (-3-3) FiO2 50 White Blood Count 14.5 x10^3/uL (4.0-11.0) Red Blood Count 2.73 x10^6/uL (3.50-5.40) Hemoglobin 8.0 g/dL (12.0-15.5) Hematocrit 24.7 % (36.0-47.0) Mean Corpuscular Volume 91 fL (79-100) Mean Corpuscular Hemoglobin 29 pg (25-35) Mean Corpuscular Hemoglobin Concent 32 g/dL (31-37) Red Cell Distribution Width 13.6 % (11.5-14.5) Platelet Count 196 x10^3/uL (140-400) Neutrophils (%) (Auto) 78 % (31-73) Lymphocytes (%) (Auto) 8 % (24-48) Monocytes (%) (Auto) 7 % (0-9) Eosinophils (%) (Auto) 6 % (0-3) Basophils (%) (Auto) 1 % (0-3) Neutrophils # (Auto) 11.3 x10^3/uL (1.8-7.7) Lymphocytes # (Auto) 1.2 x10^3/uL (1.0-4.8) Monocytes # (Auto) 1.1 x10^3/uL (0.0-1.1) Eosinophils # (Auto) 0.9 x10^3/uL (0.0-0.7) Basophils # (Auto) 0.1 x10^3/uL (0.0-0.2) Sodium Level 140 mmol/L (136-145) Potassium Level 3.6 mmol/L (3.5-5.1) Chloride Level 108 mmol/L (98-107) Carbon Dioxide Level 23 mmol/L (21-32) Anion Gap 9 (6-14) Blood Urea Nitrogen 20 mg/dL (7-20) Creatinine 1.5 mg/dL (0.6-1.0) Estimated GFR (Cockcroft-Gault) 37.6 BUN/Creatinine Ratio 13 (6-20) Glucose Level 159 mg/dL (70-99) Calcium Level 7.6 mg/dL (8.5-10.1) Total Bilirubin 0.4 mg/dL (0.2-1.0) Aspartate Amino Transf (AST/SGOT) 42 U/L (15-37) Alanine Aminotransferase (ALT/SGPT) 25 U/L (14-59) Alkaline Phosphatase 90 U/L (46-116) Total Protein 5.6 g/dL (6.4-8.2) Albumin 1.2 g/dL (3.4-5.0) Albumin/Globulin Ratio 0.3 (1.0-1.7) Assessment and Plan Assessmemt and Plan Problems Medical Problems: (1) Ketoacidosis Status: Acute Comment Review of Relevant I have reviewed the following items mazin (where applicable) has been applied. Medications: Current Medications Medications (Trade) Dose Ordered Sig/Pepe Route PRN Reason Start Time Stop Time Status Last Admin Dose Admin Vancomycin HCl 2 gm/Sodium Chloride 500 ml @ 250 mls/hr 1X ONCE IV 03/04/21 19:00 03/04/21 20:59 DC 03/04/21 19:26 Vancomycin HCl (Vanco Per Pharmacy) 1 each PRN DAILY PRN MC SEE COMMENTS 03/04/21 18:30 03/05/21 08:59 DC 03/04/21 19:47 Linezolid (Zyvox) 600 mg BID PO 03/05/21 09:00 03/05/21 10:50 Justifications for Admission Other Justification SRIKANTH DAVIS MD Mar 05, 2021 12:59
--- NOTE | 2021-03-05 15:40 | NUR ---
SS following up with discharge planning. SS reviewed pt chart and discussed with pt RN. Pt is currently on the vent at 55%. COVID19 positive. Pt on IV Zosyn and PO Zyvox. Pt on Precedex, Versed, Propofol, and Fentanyl. Tube feeds. Self pay. Med Assist following. SS will continue to follow for discharge planning.
[2021-03-05] MEDS: ATORVASTATIN CALCIUM 40 MG TABLET. PO SCH (20:34)
[2021-03-05] MEDS: INSULIN GLARGINE SYRINGE. SQ SCH (21:26)
[2021-03-06] VITALS (29 sets, daily range): BP systolic 68–166; BP diastolic 43–76
[2021-03-06] MEDS: PIPERACILLIN/TAZOBACTAM 4.5 GM in IV NORMAL SALINE 100ML 100 ML IV SCH ×4 (00:26→17:25)
[2021-03-06] MEDS: INSULIN LISPRO 300 UNITS/3 ML VIAL. SQ SCH ×4 (00:28→17:41)
[2021-03-06] MEDS: MIDAZOLAM 100mg/100ml NS BAG 100 ML IV PRN ×3 (03:38→22:50)
[2021-03-06] MEDS: DEXMEDETOMIDINE 400 MCG in IV NORMAL SALINE 100ML 96 ML IV PRN ×6 (05:25→22:51)
[2021-03-06] MEDS: PROPOFOL 100 ML IV PRN ×4 (05:26→21:32)
--- NOTE | 2021-03-06 07:54 | PDOC ---
Infectious Disease Note Subjective: Subjective Patient intubated/sedated Fever pattern improved FiO2 50% PEEP of 5 Discussed with RN Vital Signs: Vital Signs Vital Signs Date Time Temp Pulse Resp B/P (MAP) Pulse Ox O2 Delivery O2 Flow Rate FiO2 03/06/21 06:00 76 33 109/62 (78) 94 Ventilator 03/06/21 05:56 15.0 03/06/21 04:00 98.2 98.2 Physical Exam: PHYSICAL EXAM GENERAL: Intubated and sedated. HEENT: Normocephalic, atraumatic. Anicteric. LUNGS: Rhonchi. HEART: S1, S2. No murmurs. ABDOMEN: Obese, soft. Bowel sounds present. Nontender, nondistended. GENITOURINARY: Kern and fecal tube in place. EXTREMITIES: Edema present no cyanosis. CENTRAL NERVOUS SYSTEM: Intubated. PSYCHIATRIC: Unable to assess. Derm has pressure wounds wound pictures noted in chart. Generalized rash, Lines clean Medications: Inpatient Meds: Medications reviewed. Labs: Lab Laboratory Tests Test 03/05/21 08:25 03/05/21 11:15 03/05/21 18:47 03/05/21 21:46 O2 Saturation 88 % (92-99) Arterial Blood pH 7.37 (7.35-7.45) Arterial Blood pCO2 at Patient Temp 42 mmHg (35-46) Arterial Blood pO2 at Patient Temp 58 mmHg (75-108) Arterial Blood HCO3 24 mmol/L (21-28) Arterial Blood Base Excess -2 mmol/L (-3-3) FiO2 50 White Blood Count 14.5 x10^3/uL (4.0-11.0) Red Blood Count 2.73 x10^6/uL (3.50-5.40) Hemoglobin 8.0 g/dL (12.0-15.5) Hematocrit 24.7 % (36.0-47.0) Mean Corpuscular Volume 91 fL (79-100) Mean Corpuscular Hemoglobin 29 pg (25-35) Mean Corpuscular Hemoglobin Concent 32 g/dL (31-37) Red Cell Distribution Width 13.6 % (11.5-14.5) Platelet Count 196 x10^3/uL (140-400) Neutrophils (%) (Auto) 78 % (31-73) Lymphocytes (%) (Auto) 8 % (24-48) Monocytes (%) (Auto) 7 % (0-9) Eosinophils (%) (Auto) 6 % (0-3) Basophils (%) (Auto) 1 % (0-3) Neutrophils # (Auto) 11.3 x10^3/uL (1.8-7.7) Lymphocytes # (Auto) 1.2 x10^3/uL (1.0-4.8) Monocytes # (Auto) 1.1 x10^3/uL (0.0-1.1) Eosinophils # (Auto) 0.9 x10^3/uL (0.0-0.7) Basophils # (Auto) 0.1 x10^3/uL (0.0-0.2) Sodium Level 140 mmol/L (136-145) Potassium Level 3.6 mmol/L (3.5-5.1) Chloride Level 108 mmol/L (98-107) Carbon Dioxide Level 23 mmol/L (21-32) Anion Gap 9 (6-14) Blood Urea Nitrogen 20 mg/dL (7-20) Creatinine 1.5 mg/dL (0.6-1.0) Estimated GFR (Cockcroft-Gault) 37.6 BUN/Creatinine Ratio 13 (6-20) Glucose Level 159 mg/dL (70-99) Calcium Level 7.6 mg/dL (8.5-10.1) Total Bilirubin 0.4 mg/dL (0.2-1.0) Aspartate Amino Transf (AST/SGOT) 42 U/L (15-37) Alanine Aminotransferase (ALT/SGPT) 25 U/L (14-59) Alkaline Phosphatase 90 U/L (46-116) Total Protein 5.6 g/dL (6.4-8.2) Albumin 1.2 g/dL (3.4-5.0) Albumin/Globulin Ratio 0.3 (1.0-1.7) Glucose (Fingerstick) 197 mg/dL (70-99) 222 mg/dL (70-99) Test 03/05/21 23:53 03/06/21 05:52 Glucose (Fingerstick) 251 mg/dL (70-99) 60 mg/dL (70-99) Objective: Assessment: 1. Febrile illness. 2. COVID-19 infection present on date of admission, 02/06/2021. Status post remdesivir, dexamethasone. 3. Acute hypoxic respiratory failure, status post intubation. 4. Diabetes. 5. Diarrhea. 6. Hypertension. 7. Hyperlipidemia. 8. Anemia. Plan: Plan of Care Continue Zosyn, Zyvox. Follow-up lab ,cultures,C. diff PCR. Wound care per wound treatment Offload Continue supportive care. Critically ill. Prognosis guarded. KAITLYNN CRAIG MD Mar 06, 2021 07:54
[2021-03-06 07:59] LABS: BASE EXCESS ABG -5 mmol/L (-3-3); HCO3 ABG 21 mmol/L (21-28); PCO2 ABG 41 mmHg (35-46); PO2 ABG 57 mmHg (75-108); SAT O2 ABG 88 % (92-99)
[2021-03-06 08:32] LABS: FIO2 ABG 55
[2021-03-06] MEDS ORDERED: INSULIN GLARGINE SYRINGE. SQ SCH (09:00)
[2021-03-06] MEDS: LISINOPRIL 20 MG TABLET PO SCH (09:00)
--- NOTE | 2021-03-06 10:21 | PDOC ---
PULMONARY PROGRESS NOTES DATE: 03/06/21 TIME: 10:16 Subjective Patient remains on vent support Oxygen requirement has increased to 55% New fever, low BP, BOB , suspect new sepsis/ secondary infection Vitals Vital Signs Date Time Temp Pulse Resp B/P (MAP) Pulse Ox O2 Delivery O2 Flow Rate FiO2 03/06/21 08:54 96 Ventilator 03/06/21 06:00 76 33 109/62 (78) 03/06/21 05:56 15.0 03/06/21 04:00 98.2 98.2 Comments Visual exam done due to COVID-19. intubated NC AT RRR no accessory muscle use abd obese No skin rash or leg edema. Labs Laboratory Tests Test 03/04/21 12:41 03/04/21 18:32 03/04/21 21:15 03/04/21 23:47 Glucose (Fingerstick) 227 mg/dL (70-99) 169 mg/dL (70-99) 130 mg/dL (70-99) 121 mg/dL (70-99) Test 03/05/21 05:46 03/05/21 08:25 03/05/21 11:15 03/05/21 18:47 Glucose (Fingerstick) 137 mg/dL (70-99) 197 mg/dL (70-99) O2 Saturation 88 % (92-99) Arterial Blood pH 7.37 (7.35-7.45) Arterial Blood pCO2 at Patient Temp 42 mmHg (35-46) Arterial Blood pO2 at Patient Temp 58 mmHg (75-108) Arterial Blood HCO3 24 mmol/L (21-28) Arterial Blood Base Excess -2 mmol/L (-3-3) FiO2 50 White Blood Count 14.5 x10^3/uL (4.0-11.0) Red Blood Count 2.73 x10^6/uL (3.50-5.40) Hemoglobin 8.0 g/dL (12.0-15.5) Hematocrit 24.7 % (36.0-47.0) Mean Corpuscular Volume 91 fL (79-100) Mean Corpuscular Hemoglobin 29 pg (25-35) Mean Corpuscular Hemoglobin Concent 32 g/dL (31-37) Red Cell Distribution Width 13.6 % (11.5-14.5) Platelet Count 196 x10^3/uL (140-400) Neutrophils (%) (Auto) 78 % (31-73) Lymphocytes (%) (Auto) 8 % (24-48) Monocytes (%) (Auto) 7 % (0-9) Eosinophils (%) (Auto) 6 % (0-3) Basophils (%) (Auto) 1 % (0-3) Neutrophils # (Auto) 11.3 x10^3/uL (1.8-7.7) Lymphocytes # (Auto) 1.2 x10^3/uL (1.0-4.8) Monocytes # (Auto) 1.1 x10^3/uL (0.0-1.1) Eosinophils # (Auto) 0.9 x10^3/uL (0.0-0.7) Basophils # (Auto) 0.1 x10^3/uL (0.0-0.2) Sodium Level 140 mmol/L (136-145) Potassium Level 3.6 mmol/L (3.5-5.1) Chloride Level 108 mmol/L (98-107) Carbon Dioxide Level 23 mmol/L (21-32) Anion Gap 9 (6-14) Blood Urea Nitrogen 20 mg/dL (7-20) Creatinine 1.5 mg/dL (0.6-1.0) Estimated GFR (Cockcroft-Gault) 37.6 BUN/Creatinine Ratio 13 (6-20) Glucose Level 159 mg/dL (70-99) Calcium Level 7.6 mg/dL (8.5-10.1) Total Bilirubin 0.4 mg/dL (0.2-1.0) Aspartate Amino Transf (AST/SGOT) 42 U/L (15-37) Alanine Aminotransferase (ALT/SGPT) 25 U/L (14-59) Alkaline Phosphatase 90 U/L (46-116) Total Protein 5.6 g/dL (6.4-8.2) Albumin 1.2 g/dL (3.4-5.0) Albumin/Globulin Ratio 0.3 (1.0-1.7) Test 03/05/21 21:46 03/05/21 23:53 03/06/21 05:52 03/06/21 07:55 Glucose (Fingerstick) 222 mg/dL (70-99) 251 mg/dL (70-99) 60 mg/dL (70-99) O2 Saturation 88 % (92-99) Arterial Blood pH 7.33 (7.35-7.45) Arterial Blood pCO2 at Patient Temp 41 mmHg (35-46) Arterial Blood pO2 at Patient Temp 57 mmHg (75-108) Arterial Blood HCO3 21 mmol/L (21-28) Arterial Blood Base Excess -5 mmol/L (-3-3) FiO2 55 Laboratory Tests Test 03/05/21 11:15 03/05/21 18:47 03/05/21 21:46 03/05/21 23:53 White Blood Count 14.5 x10^3/uL (4.0-11.0) Red Blood Count 2.73 x10^6/uL (3.50-5.40) Hemoglobin 8.0 g/dL (12.0-15.5) Hematocrit 24.7 % (36.0-47.0) Mean Corpuscular Volume 91 fL (79-100) Mean Corpuscular Hemoglobin 29 pg (25-35) Mean Corpuscular Hemoglobin Concent 32 g/dL (31-37) Red Cell Distribution Width 13.6 % (11.5-14.5) Platelet Count 196 x10^3/uL (140-400) Neutrophils (%) (Auto) 78 % (31-73) Lymphocytes (%) (Auto) 8 % (24-48) Monocytes (%) (Auto) 7 % (0-9) Eosinophils (%) (Auto) 6 % (0-3) Basophils (%) (Auto) 1 % (0-3) Neutrophils # (Auto) 11.3 x10^3/uL (1.8-7.7) Lymphocytes # (Auto) 1.2 x10^3/uL (1.0-4.8) Monocytes # (Auto) 1.1 x10^3/uL (0.0-1.1) Eosinophils # (Auto) 0.9 x10^3/uL (0.0-0.7) Basophils # (Auto) 0.1 x10^3/uL (0.0-0.2) Sodium Level 140 mmol/L (136-145) Potassium Level 3.6 mmol/L (3.5-5.1) Chloride Level 108 mmol/L (98-107) Carbon Dioxide Level 23 mmol/L (21-32) Anion Gap 9 (6-14) Blood Urea Nitrogen 20 mg/dL (7-20) Creatinine 1.5 mg/dL (0.6-1.0) Estimated GFR (Cockcroft-Gault) 37.6 BUN/Creatinine Ratio 13 (6-20) Glucose Level 159 mg/dL (70-99) Calcium Level 7.6 mg/dL (8.5-10.1) Total Bilirubin 0.4 mg/dL (0.2-1.0) Aspartate Amino Transf (AST/SGOT) 42 U/L (15-37) Alanine Aminotransferase (ALT/SGPT) 25 U/L (14-59) Alkaline Phosphatase 90 U/L (46-116) Total Protein 5.6 g/dL (6.4-8.2) Albumin 1.2 g/dL (3.4-5.0) Albumin/Globulin Ratio 0.3 (1.0-1.7) Glucose (Fingerstick) 197 mg/dL (70-99) 222 mg/dL (70-99) 251 mg/dL (70-99) Test 03/06/21 05:52 03/06/21 07:55 Glucose (Fingerstick) 60 mg/dL (70-99) O2 Saturation 88 % (92-99) Arterial Blood pH 7.33 (7.35-7.45) Arterial Blood pCO2 at Patient Temp 41 mmHg (35-46) Arterial Blood pO2 at Patient Temp 57 mmHg (75-108) Arterial Blood HCO3 21 mmol/L (21-28) Arterial Blood Base Excess -5 mmol/L (-3-3) FiO2 55 Medications Active Scripts Medications Dose Route/Sig Max Daily Dose Days Date Category Novolog Flexpen (Insulin Aspart) 100 Unit/1 Ml Insuln.pen 3-7 SQ TIDACHC 02/07/21 Reported Lisinopril 5 Mg Tablet 1 Tab PO DAILY 02/07/21 Reported Lantus Solostar (Insulin Glargine,Hum.rec.anlog) 100 Unit/1 Ml Insuln.pen 5 Unit SQ QHS 04/09/15 Reported Atorvastatin Calcium 40 Mg Tablet 40 Mg PO HS 04/09/15 Reported Impression . IMPRESSION: 1. Acute hypoxic respiratory failure secondary to COVID-19 viral pneumonia/acute lung injury and early acute respiratory distress syndrome. S/P intubation 02/17/21,--Now worsening hypoxia since 03/05, fever, low BP and BOB, New sepsis and secondary infection. 2. Nonsmoker. 3. Abnormal chest x-ray consistent with COVID-19 viral pneumonia.--- 4. Diabetic ketoacidosis as initial presentation, currently better.--resolved 5. Underlying obesity contributing to hypoxia as well. 6. BOB 7. Fever, On broad-spectrum antibiotics. Infectious disease following.(Zosyn/ Zyvox) Plan . Updated 03/06/2021 Continue current ventilatory support 18/450/55/5, Oxygen requirement has increased. CXR with worsening infiltrates., no CHF pt. still unable to tolerate sedation vacation/weaning trial. will hold further trials till clinically better Follow-up surgery recommendations for tracheostomy. May have to hold for now Follow chest x-ray/ABG Follow infectious disease recommendations in regards to antibiotics IVF bolus and low dose levophed. Monitor renal function closely. consult renal S/P remdesivir for full course, has also completed full course of steroids Continue tube feeding for nutritional support DVT/GI prophylaxis: Lovenox Discussed with RN and RT Critical care time 30 minutes addend: cxr with increase interstitial infiltrates c/w COVID Updated 03/05/2021 Continue current ventilatory support 18/450/40/5, pt. still unable to tolerate sedation vacation/weaning trial Follow-up surgery recommendations for tracheostomy Follow chest x-ray/ABG as needed--marginal PO2 no room for weaning Follow infectious disease recommendations in regards to antibiotics S/P remdesivir for full course, has also completed full course of steroids Continue tube feeding for nutritional support DVT/GI prophylaxis: Lovenox Discussed with RN and R Critical care time 30 minutes EMILY POSADA MD Mar 06, 2021 10:21
[2021-03-06] MEDS: ENOXAPARIN 40 MG/0.4 ML SYRINGE. SQ SCH ×2 (10:26→20:53)
[2021-03-06] MEDS: NYSTATIN TOPICAL POWDER 15GM BOTTLE. TP SCH ×2 (10:26→21:28)
[2021-03-06] MEDS: FAMOTIDINE 20 MG/2 ML VIAL IVP SCH ×2 (10:26→20:53)
[2021-03-06] MEDS: LINEZOLID 600 MG TABLET PO SCH ×2 (10:26→20:53)
[2021-03-06] MEDS: INSULIN GLARGINE SYRINGE. SQ SCH ×2 (10:31→21:28)
--- NOTE | 2021-03-06 10:53 | RAD ---
EXAM: Chest, single view. HISTORY: Covid 19. Respiratory failure. COMPARISON: 03/02/2021 FINDINGS: A frontal view of the chest is obtained. There has been significant interval increase in di ffuse interstitial and alveolar infiltrate with partial consolidation involving both lungs. No signif icant pleural effusion is seen. There is no pneumothorax. There is an endotracheal tube within the mi d trachea. There is nasogastric tube within the stomach. There is a right PICC with the tip projectin g over the expected location of the superior cavoatrial junction. IMPRESSION: 1. Significant interval increase in diffuse pulmonary infiltrate. 2. Stable support lines and tubes. Electronically signed by: Roula Sanches MD (03/06/2021 10:50 AM) [id number]
[2021-03-06] MEDS: DOCUSATE 100 MG/10 ML SOLUTION. PO SCH ×2 (11:20→21:00)
--- NOTE | 2021-03-06 12:43 | PDOC ---
[facility] PROGRESS NOTE Date of Service DOS: DATE: 03/06/21 TIME: 12:41 Chief Complaint Chief Complaint Hypotension COVID-19 positive infection Tractable nausea vomiting DKA Anion gap metabolic acidosis Acute electrolyte derangementhyponatremia, hypochloremia due to volume depletion Hyperglycemia uncontrolled BOB due to vasomotor nephropathy Erythrocytosis Reglan for diabetic gastroparesis Candiduria Sacral decubitus ulcer Continue Covid measures Patient intubated Pulmonary following SCD for DVT prophylaxis Protonix GI prophylaxis ADA diet Full code Discussed with RN and SW Disposition inpatient management as above Surrogate decision maker is Brian Whitmore History of Present Illness History of Present Illness 46 year old female who presents with nausea/vomiting since 7 AM yesterday morning. Patient states that her recently tested positive for Covid. She states that he "coughed in my face because he thought it was funny." She reports subjective fevers and chills and nausea/vomiting. Denies sore throat, cough, shortness of breath. No chest pain. Does have some upper abdominal discomfort after vomiting, that she attributes to muscular strain. She is not vaccinated for Covid. 02/08/2021 No acute events overnight. Patient seen and examined bedside and resting co mfortably. Continues to complain of nausea not able to tolerate any diet at this time. Saturating 98% on room air. Patient's chart, labs, images were reviewed and discussed with RN 02/09/2021: Afebrile, currently breathing on room air. Still with complaints of nausea and vomiting x3 today. States that she has history of similar symptoms that have been mildly improved with IV Dilaudid. Discussed with patient that I will provide IV Dilaudid to help with her nausea, but she will not discharged on this medication. Will obtain 6-minute walk to evaluate oxygen requirements. Upon discharge, I recommend self quarantine for 10 days for resolution of her symptoms. Discussed with patient that she will discharge tomorrow. 02/10/2021: Patient febrile today with T-max 102.2 F. She still admits to nausea, denies any further vomiting. We will continue to provide supportive care and monitor for any recurrent fevers overnight. Patient continues to improve may discharge tomorrow to continue self-isolation. 02/11/2021: Febrile overnight, T-max 102.3 F. She did become hypoxic overnight, currently breathing on 4 L nasal cannula. Also admits to associated vomiting or diarrhea overnight. Discussed with RN, will initiate remdesivir and closely monitor LFTs. We will also treat with IV Decadron, and prophylactic antibiotics. 02/12/2021: Low-grade fever overnight, T-max 99.7. Currently breathing on room air. Will discontinue remdesivir, steroids, and antibiotics; will observe overnight. Still with complaints of vomiting x1 and diarrhea. We will continue to provide supportive care and hope to discharge in the next day or so. 02/13/2021: Afebrile. Still complains of intermittent diarrhea. At the time of my evaluation she was breathing on 6 L nasal cannula; this is somewhat misleading as patient states that she did not feel short of breath but was placed on 6 L by nursing staff overnight. Will have RN reassess her oxygen requirements as I did anticipate discharging today. 02/14/2021: Afebrile, currently breathing on 8 L nasal cannula. There has been some misleading documentation, chart oxygen this patient is requiring. Discussed with RN, will resume remdesivir to complete total of 5 days. Continue to monitor LFTs. Will add steroids, Rocephin, and azithromycin. Continue supportive care. 02/15/2021: Afebrile. Became much more hypoxic overnight, requiring BiPAP. At the time of my evaluation she is still breathing on BiPAP. Consultation was placed to pulmonology. Had discussion with Dr. Myrick about initiating Tocilizumab, but currently there is 1 more person in the ER that would be more deserving. When stocks are replenished, she will be first inline to receive this medication. She is also first-line to be transferred down to ICU. Critical care time 30 minutes spent reviewing labs, reviewing imaging, discussion with Dr. Myrick, and discussion with RN. 02/16/2021 No acute events overnight. Patient becoming more hypoxic saturating 94% and requiring BiPAP. Patient will be transferred to the ICU at this time. For worsening clinical status. Discussed with pulmonary. Patient's chart, labs, images were reviewed and discussed with RN 02/17/21 Transferred to ICU yesterday afternoon. Seen and examined at bedside she remains on 100% FiO2 on BiPAP. Respirations do appear somewhat labored. Suspect intubation may be impending. We will closely monitor. Increase lisinopril to 20 today. Plan of care discussed with bedside RN. 02/18/21 Patient required intubation yesterday afternoon. Saw and examined this morning. She is intubated and sedated. Increase insulin today. Covid protocol ordered. Wean as tolerated. Plan of care discussed with bedside nurse. 02/19/21 Bedside. She remains intubated and sedated. Continue Covid protocol. Wean oxygen sedation as tolerated. Pulmonary following. Plan of care discussed with bedside RN. 02/20/21 Patient seen and examined at bedside. She remains intubated and sedated. No major clinical changes. Continue current treatment. Pulmonary following. Plan of care discussed with bedside RN. 02/21/21 Patient seen and examined at bedside. Remains intubated and sedated date and admission clinical changes. Increase free water flushes today due to hypernatremia. Plan of care discussed with bedside nurse. 02/22/21 Patient seen and examined at bedside. O2 requirement actually improving, although remains intubated. Possible SBT in the coming days. Hypernatremia improving. Plan of care discussed bedside RN. 02/23/2021: Patient remains in ICU on ventilator with FiO2 100%, PEEP 7. Repeat chest x-ray yesterday showed diffuse bilateral pulmonary opacities with no interval improvement. Will discontinue Rocephin and initiate Zosyn. We will continue IV steroids for a full 10-day course (to be completed 02/25/2021). Completed remdesivir. Continue supportive care. Critical care time 30 minutes spent reviewing charts, reviewing imaging, reviewing labs, discussion with RN. 02/24/2021: Afebrile. On vent with FiO2 40%, PEEP 6. Her Coreg has been held due to persistent bradycardia. No documented history of systolic heart failure or previous echocardiogram. Will need to obtain echocardiogram prior to discharge. Continue IV steroids and antibiotics. 02/25/2021: Afebrile. Remains ventilated with FiO2 45%, PEEP 6. Chest x-ray today showed slight improvement of the pulmonary infiltrates, no pneumothorax. Completed 10-day course of IV Decadron. Will initiate slow Solu-Medrol taper. Continue IV Zosyn. Continue supportive care. Will need echocardiogram prior to discharge to evaluate heart failure. Critical care time 30 minutes spent reviewing charts, reviewing imaging, reviewing labs, discussion with RN. 02/26/2021: Afebrile. On vent with FiO2 45%, PEEP 6. Completed 10 days of IV Decadron. Will continue IV Zosyn. Continue supportive care. Critical care time 30 minutes spent reviewing charts, reviewing imaging, reviewing labs, discussion with RN. 02/27/2021: Afebrile. On vent with FiO2 45%, PEEP 6. Completed 10 days of steroids and completed remdesivir. Continue with IV Zosyn. CPAP trial yesterday. Continue NG tube and supportive care. Critical care time 30 minutes spent reviewing charts, reviewing imaging, reviewing labs, discussion with RN. 02/28/2021:. Patient remains on vent with FiO2 40%, PEEP 5. Afebrile. Completed steroids and remdesivir. Some noted hypoglycemia overnight, will de- escalate basal insulin. Continue IV Zosyn. Ventilator management per pulmonology. Continue NG tube and supportive care. Critical care time 30 minutes spent reviewing charts, reviewing imaging, reviewing labs, discussion with RN. 03/01/2021: On vent with FiO2 40%, PEEP 5. Afebrile. Completed steroids and remdesivir. Blood glucose well controlled. Continue empiric antibiotics with Zosyn. Ventilator management per pulmonology. Continue NG tube and supportive care. Critical care time 30 minutes spent reviewing charts, reviewing imaging, reviewing labs, discussion with RN. 03/02/2021 No acute events overnight. Patient hypotensive the morning due to oversedation. Will wean off sedation and keep antihypertensive medications on board. Currently saturating 100% on vent settings of 18/450/40/5. Will attempt spontaneous breathing trial today to see how patient does. Defer this management to pulmonary. Patient's chart, labs, images were reviewed and discussed with RN A total of 36 minutes of critical care time was spent in reviewing chart, labs, and images. Discussed with RN and KIRBY. 03/03/2021 No acute events overnight. Patient saturating 98% on vent settings of 18/450/40/5. Will defer spontaneous breathing trials to pulmonary at this time. Patient's chart, labs, images were reviewed and discussed with RN A total of 37 minutes of critical care time was spent in reviewing chart, labs, and images. Discussed with RN and KIRBY. 03/04/2021 No acute events overnight. Patient saturating 9 9% on vent settings of 18/450/30/5. Patient currently is unable to tolerate weaning. Per pulmonary. Patient's chart, labs, images were reviewed and discussed with RN A total of 34 minutes of critical care time was spent in reviewing chart, labs, and images. Discussed with RN and SW. 03/05/2021 No acute events overnight. Patient is saturating 97% on vent settings of 18/45 0/55/5. Her FiO2 needs to be increased due to abnormal ABG with 7.3 7/42/58/24. Patient's chart, labs, images were reviewed and discussed with RN A total of 35 minutes of critical care time was spent in reviewing chart, labs, and images. Discussed with RN and SW. 03/06/2021 No acute events overnight. Patient saturating 94% on vent settings of 18/450/55/5. Chest x-ray showing increase in pulmonary infiltrates. Wound care is consulted for decubitus ulcer patient's chart, labs, images were reviewed and discussed with RN A total of 35 minutes of critical care time was spent in reviewing chart, labs, and images. Discussed with RN and KIRBY. Vitals/I&O Vitals/I&O: Vital Signs Date Time Temp Pulse Resp B/P (MAP) Pulse Ox O2 Delivery O2 Flow Rate FiO2 03/06/21 12:08 95 Ventilator 03/06/21 06:00 76 33 109/62 (78) 03/06/21 05:56 15.0 03/06/21 04:00 98.2 98.2 I & O 03/05/21 03/05/21 03/06/21 15:00 23:00 07:00 Intake Total 400 ml 1535 ml 1657 ml Output Total 245 ml 175 ml 1188 ml Balance 155 ml 1360 ml 469 ml Physical Exam Physical Exam: GENERAL: Intubated and sedated. HEENT: Normocephalic, atraumatic. Anicteric. LUNGS: Rhonchi. HEART: S1, S2. No murmurs. ABDOMEN: Obese, soft. Bowel sounds present. Nontender, nondistended. GENITOURINARY: Kern and fecal tube in place. EXTREMITIES: Edema present no cyanosis. CENTRAL NERVOUS SYSTEM: Intubated. PSYCHIATRIC: Unable to assess. Derm has pressure wounds wound pictures noted in chart. Generalized rash, Lines clean General: No acute distress, Other (Intubated and sedated) Heart: Regular rate Abdomen: Normal bowel sounds Extremities: No clubbing, No edema Skin: No rashes, No significant lesion Labs Labs: Laboratory Tests Test 03/05/21 18:47 03/05/21 21:46 03/05/21 23:53 03/06/21 05:52 Glucose (Fingerstick) 197 mg/dL (70-99) 222 mg/dL (70-99) 251 mg/dL (70-99) 60 mg/dL (70-99) Test 03/06/21 07:55 03/06/21 12:18 O2 Saturation 88 % (92-99) Arterial Blood pH 7.33 (7.35-7.45) Arterial Blood pCO2 at Patient Temp 41 mmHg (35-46) Arterial Blood pO2 at Patient Temp 57 mmHg (75-108) Arterial Blood HCO3 21 mmol/L (21-28) Arterial Blood Base Excess -5 mmol/L (-3-3) FiO2 55 Glucose (Fingerstick) 192 mg/dL (70-99) Assessment and Plan Assessmemt and Plan Problems Medical Problems: (1) Ketoacidosis Status: Acute Comment Review of Relevant I have reviewed the following items mazin (where applicable) has been applied. Medications: Current Medications Medications (Trade) Dose Ordered Sig/Pepe Route PRN Reason Start Time Stop Time Status Last Admin Dose Admin Insulin Glargine (Lantus Syringe) 5 unit BID SQ 03/06/21 09:00 03/06/21 10:31 Justifications for Admission Other Justification SRIKANTH DAVIS MD Mar 06, 2021 12:43
[2021-03-06] MEDS: NOREPINEPHRINE VIAL 8 MG in IV DEXTROSE 5% 250 ML IV PRN ×2 (13:00→21:29)
--- NOTE | 2021-03-06 14:00 | NUR ---
pt has 10-15ml/hr of bloody urine putput, contacted dr davis, orders to give 1L bolus NS. bladder scan showed 0ml in bladder, abbasi also flushed with sterile water no clots returned. 1700 no urine output after 1L bolus, orders from ryan to given another 1L bolus and consult dr richard.
[2021-03-06] MEDS: VECURONIUM BOLUS 10 MG VIAL. IV PRN (14:37)
--- NOTE | 2021-03-06 14:44 | PDOC ---
SURGICAL PROGRESS NOTE DATE: 03/06/21 TIME: 14:42 Subjective Pt intubated Vital Signs Vital Signs Date Time Temp Pulse Resp B/P (MAP) Pulse Ox O2 Delivery O2 Flow Rate FiO2 03/06/21 13:35 95 Ventilator 03/06/21 06:00 76 33 109/62 (78) 03/06/21 05:56 15.0 03/06/21 04:00 98.2 98.2 I&O Intake and Output 03/06/21 07:00 Intake Total 3592 ml Output Total 1608 ml Balance 1984 ml IV Total 1543 ml Tube Feeding 1562 ml Other 487 ml Output Urine Total 508 ml Stool Total 1100 ml General: No acute distress Labs Laboratory Tests Test 03/04/21 18:32 03/04/21 21:15 03/04/21 23:47 03/05/21 05:46 Glucose (Fingerstick) 169 mg/dL (70-99) 130 mg/dL (70-99) 121 mg/dL (70-99) 137 mg/dL (70-99) Test 03/05/21 08:25 03/05/21 11:15 03/05/21 18:47 03/05/21 21:46 O2 Saturation 88 % (92-99) Arterial Blood pH 7.37 (7.35-7.45) Arterial Blood pCO2 at Patient Temp 42 mmHg (35-46) Arterial Blood pO2 at Patient Temp 58 mmHg (75-108) Arterial Blood HCO3 24 mmol/L (21-28) Arterial Blood Base Excess -2 mmol/L (-3-3) FiO2 50 White Blood Count 14.5 x10^3/uL (4.0-11.0) Red Blood Count 2.73 x10^6/uL (3.50-5.40) Hemoglobin 8.0 g/dL (12.0-15.5) Hematocrit 24.7 % (36.0-47.0) Mean Corpuscular Volume 91 fL (79-100) Mean Corpuscular Hemoglobin 29 pg (25-35) Mean Corpuscular Hemoglobin Concent 32 g/dL (31-37) Red Cell Distribution Width 13.6 % (11.5-14.5) Platelet Count 196 x10^3/uL (140-400) Neutrophils (%) (Auto) 78 % (31-73) Lymphocytes (%) (Auto) 8 % (24-48) Monocytes (%) (Auto) 7 % (0-9) Eosinophils (%) (Auto) 6 % (0-3) Basophils (%) (Auto) 1 % (0-3) Neutrophils # (Auto) 11.3 x10^3/uL (1.8-7.7) Lymphocytes # (Auto) 1.2 x10^3/uL (1.0-4.8) Monocytes # (Auto) 1.1 x10^3/uL (0.0-1.1) Eosinophils # (Auto) 0.9 x10^3/uL (0.0-0.7) Basophils # (Auto) 0.1 x10^3/uL (0.0-0.2) Sodium Level 140 mmol/L (136-145) Potassium Level 3.6 mmol/L (3.5-5.1) Chloride Level 108 mmol/L (98-107) Carbon Dioxide Level 23 mmol/L (21-32) Anion Gap 9 (6-14) Blood Urea Nitrogen 20 mg/dL (7-20) Creatinine 1.5 mg/dL (0.6-1.0) Estimated GFR (Cockcroft-Gault) 37.6 BUN/Creatinine Ratio 13 (6-20) Glucose Level 159 mg/dL (70-99) Calcium Level 7.6 mg/dL (8.5-10.1) Total Bilirubin 0.4 mg/dL (0.2-1.0) Aspartate Amino Transf (AST/SGOT) 42 U/L (15-37) Alanine Aminotransferase (ALT/SGPT) 25 U/L (14-59) Alkaline Phosphatase 90 U/L (46-116) Total Protein 5.6 g/dL (6.4-8.2) Albumin 1.2 g/dL (3.4-5.0) Albumin/Globulin Ratio 0.3 (1.0-1.7) Glucose (Fingerstick) 197 mg/dL (70-99) 222 mg/dL (70-99) Test 03/05/21 23:53 03/06/21 05:52 03/06/21 07:55 03/06/21 12:18 Glucose (Fingerstick) 251 mg/dL (70-99) 60 mg/dL (70-99) 192 mg/dL (70-99) O2 Saturation 88 % (92-99) Arterial Blood pH 7.33 (7.35-7.45) Arterial Blood pCO2 at Patient Temp 41 mmHg (35-46) Arterial Blood pO2 at Patient Temp 57 mmHg (75-108) Arterial Blood HCO3 21 mmol/L (21-28) Arterial Blood Base Excess -5 mmol/L (-3-3) FiO2 55 Laboratory Tests Test 03/05/21 18:47 03/05/21 21:46 03/05/21 23:53 03/06/21 05:52 Glucose (Fingerstick) 197 mg/dL (70-99) 222 mg/dL (70-99) 251 mg/dL (70-99) 60 mg/dL (70-99) Test 03/06/21 07:55 03/06/21 12:18 O2 Saturation 88 % (92-99) Arterial Blood pH 7.33 (7.35-7.45) Arterial Blood pCO2 at Patient Temp 41 mmHg (35-46) Arterial Blood pO2 at Patient Temp 57 mmHg (75-108) Arterial Blood HCO3 21 mmol/L (21-28) Arterial Blood Base Excess -5 mmol/L (-3-3) FiO2 55 Glucose (Fingerstick) 192 mg/dL (70-99) Problem List Problems Medical Problems: (1) Ketoacidosis Status: Acute Assessment/Plan respiratory failure tentatively plan trach on 03/10 will f/u 03/09 to reevaluate. Justicifation of Admission Dx: Justifications for Admission: Justification of Admission Dx: N/A DANIEL ACHARYA MD Mar 06, 2021 14:43
--- NOTE | 2021-03-06 15:37 | NUR ---
Wound Care: Per ICU nurse, pt unstable to turn, wound care will attempt to see on Tuesday.
[2021-03-06] MEDS ORDERED: IV NORMAL SALINE 1000ML BAG 1,000 ML IV ONE ×2 (16:00→19:15)
--- NOTE | 2021-03-06 18:18 | NUR ---
Patient unstable, requiring rapid titration of Levophed d/t sustained MAP <65 beginning at 1300. Starting rate at 0.1 mcg/kg/min and patient stabilized at 1525 with MAP 70 with Levophed gtt currently infusing at 0.18 mcg/kg/min; the max rate during this time was 0.18 mcg/kg/min of medication administered during charting block which ended at 1600. (Max block time 4 hours.) Pt in SR rhythm, HR 82, Spo2 94.
[2021-03-06] MEDS: ATORVASTATIN CALCIUM 40 MG TABLET. PO SCH (20:53)
[2021-03-07] VITALS (33 sets, daily range): BP systolic 75–175; BP diastolic 47–87
[2021-03-07] MEDS: PIPERACILLIN/TAZOBACTAM 4.5 GM in IV NORMAL SALINE 100ML 100 ML IV SCH ×2 (00:21→06:12)
[2021-03-07] MEDS: INSULIN LISPRO 300 UNITS/3 ML VIAL. SQ SCH ×4 (00:23→17:30)
[2021-03-07] MEDS: DEXMEDETOMIDINE 400 MCG in IV NORMAL SALINE 100ML 96 ML IV PRN ×5 (02:47→21:11)
[2021-03-07] MEDS: PROPOFOL 100 ML IV PRN ×5 (02:56→21:10)
[2021-03-07] MEDS: NOREPINEPHRINE VIAL 8 MG in IV DEXTROSE 5% 250 ML IV PRN ×2 (06:07→17:34)
--- NOTE | 2021-03-07 06:08 | PDOC ---
PULMONARY PROGRESS NOTES DATE: 03/07/21 TIME: 06:07 Subjective Patient remains on vent support Oxygen requirement has increased to 70% peep 5 sedated on prop versed precedex vec prn levo low dose Vitals Vital Signs Date Time Temp Pulse Resp B/P (MAP) Pulse Ox O2 Delivery O2 Flow Rate FiO2 03/07/21 05:34 98 Ventilator 03/07/21 03:00 98 24 124/77 (93) 03/07/21 00:00 99.6 99.6 03/06/21 20:33 15.0 Comments Visual exam done due to COVID-19. intubated NC AT RRR no accessory muscle use abd obese No skin rash or leg edema. Labs Laboratory Tests Test 03/05/21 08:25 03/05/21 11:15 03/05/21 18:47 03/05/21 21:46 O2 Saturation 88 % (92-99) Arterial Blood pH 7.37 (7.35-7.45) Arterial Blood pCO2 at Patient Temp 42 mmHg (35-46) Arterial Blood pO2 at Patient Temp 58 mmHg (75-108) Arterial Blood HCO3 24 mmol/L (21-28) Arterial Blood Base Excess -2 mmol/L (-3-3) FiO2 50 White Blood Count 14.5 x10^3/uL (4.0-11.0) Red Blood Count 2.73 x10^6/uL (3.50-5.40) Hemoglobin 8.0 g/dL (12.0-15.5) Hematocrit 24.7 % (36.0-47.0) Mean Corpuscular Volume 91 fL (79-100) Mean Corpuscular Hemoglobin 29 pg (25-35) Mean Corpuscular Hemoglobin Concent 32 g/dL (31-37) Red Cell Distribution Width 13.6 % (11.5-14.5) Platelet Count 196 x10^3/uL (140-400) Neutrophils (%) (Auto) 78 % (31-73) Lymphocytes (%) (Auto) 8 % (24-48) Monocytes (%) (Auto) 7 % (0-9) Eosinophils (%) (Auto) 6 % (0-3) Basophils (%) (Auto) 1 % (0-3) Neutrophils # (Auto) 11.3 x10^3/uL (1.8-7.7) Lymphocytes # (Auto) 1.2 x10^3/uL (1.0-4.8) Monocytes # (Auto) 1.1 x10^3/uL (0.0-1.1) Eosinophils # (Auto) 0.9 x10^3/uL (0.0-0.7) Basophils # (Auto) 0.1 x10^3/uL (0.0-0.2) Sodium Level 140 mmol/L (136-145) Potassium Level 3.6 mmol/L (3.5-5.1) Chloride Level 108 mmol/L (98-107) Carbon Dioxide Level 23 mmol/L (21-32) Anion Gap 9 (6-14) Blood Urea Nitrogen 20 mg/dL (7-20) Creatinine 1.5 mg/dL (0.6-1.0) Estimated GFR (Cockcroft-Gault) 37.6 BUN/Creatinine Ratio 13 (6-20) Glucose Level 159 mg/dL (70-99) Calcium Level 7.6 mg/dL (8.5-10.1) Total Bilirubin 0.4 mg/dL (0.2-1.0) Aspartate Amino Transf (AST/SGOT) 42 U/L (15-37) Alanine Aminotransferase (ALT/SGPT) 25 U/L (14-59) Alkaline Phosphatase 90 U/L (46-116) Total Protein 5.6 g/dL (6.4-8.2) Albumin 1.2 g/dL (3.4-5.0) Albumin/Globulin Ratio 0.3 (1.0-1.7) Glucose (Fingerstick) 197 mg/dL (70-99) 222 mg/dL (70-99) Test 03/05/21 23:53 03/06/21 05:00 03/06/21 05:52 03/06/21 07:55 Glucose (Fingerstick) 251 mg/dL (70-99) 60 mg/dL (70-99) Clostridium difficile Toxin (PCR) Negative (NEGATIVE) O2 Saturation 88 % (92-99) Arterial Blood pH 7.33 (7.35-7.45) Arterial Blood pCO2 at Patient Temp 41 mmHg (35-46) Arterial Blood pO2 at Patient Temp 57 mmHg (75-108) Arterial Blood HCO3 21 mmol/L (21-28) Arterial Blood Base Excess -5 mmol/L (-3-3) FiO2 55 Test 03/06/21 12:18 03/06/21 17:26 03/06/21 21:04 03/06/21 23:57 Glucose (Fingerstick) 192 mg/dL (70-99) 265 mg/dL (70-99) 268 mg/dL (70-99) 288 mg/dL (70-99) Test 03/07/21 05:52 Glucose (Fingerstick) 258 mg/dL (70-99) Laboratory Tests Test 03/06/21 07:55 03/06/21 12:18 03/06/21 17:26 03/06/21 21:04 O2 Saturation 88 % (92-99) Arterial Blood pH 7.33 (7.35-7.45) Arterial Blood pCO2 at Patient Temp 41 mmHg (35-46) Arterial Blood pO2 at Patient Temp 57 mmHg (75-108) Arterial Blood HCO3 21 mmol/L (21-28) Arterial Blood Base Excess -5 mmol/L (-3-3) FiO2 55 Glucose (Fingerstick) 192 mg/dL (70-99) 265 mg/dL (70-99) 268 mg/dL (70-99) Test 03/06/21 23:57 03/07/21 05:52 Glucose (Fingerstick) 288 mg/dL (70-99) 258 mg/dL (70-99) Medications Active Scripts Medications Dose Route/Sig Max Daily Dose Days Date Category Novolog Flexpen (Insulin Aspart) 100 Unit/1 Ml Insuln.pen 3-7 SQ TIDACHC 02/07/21 Reported Lisinopril 5 Mg Tablet 1 Tab PO DAILY 02/07/21 Reported Lantus Solostar (Insulin Glargine,Hum.rec.anlog) 100 Unit/1 Ml Insuln.pen 5 Unit SQ QHS 04/09/15 Reported Atorvastatin Calcium 40 Mg Tablet 40 Mg PO HS 04/09/15 Reported Comments cxr 03/06 reviewed 1. Significant interval increase in diffuse pulmonary infiltrate. 2. Stable support lines and tubes. Impression . IMPRESSION: 1. Acute hypoxic respiratory failure secondary to COVID-19 viral pneumonia/acute lung injury and early acute respiratory distress syndrome. S/P intubation 02/17/21,--Now worsening hypoxia since 03/05, fever, low BP and BOB, New sepsis and secondary infection. 2. Nonsmoker. 3. Abnormal chest x-ray consistent with COVID-19 viral pneumonia.--- 4. Diabetic ketoacidosis as initial presentation, currently better.--resolved 5. Underlying obesity contributing to hypoxia as well. 6. BOB worsening 7. Fever, On broad-spectrum antibiotics. Infectious disease following.(Zosyn/ Zyvox) Plan . Updated 03/07/2021 Continue current ventilatory support, setting reviewed, will increase peep to 7 abg reviewed will increase peep to 8 rr to 24 levophed to keep map 65. Monitor renal function closely. cr 4.2 today renal consulted they will start dialysis today Oxygen requirement has increased. CXR with worsening infiltrates., no CHF Follow-up surgery recommendations for tracheostomy. Follow chest x-ray/ABG Follow infectious disease recommendations in regards to antibiotics S/P remdesivir for full course, has also completed full course of steroids Continue tube feeding for nutritional support DVT/GI prophylaxis: Lovenox Discussed with RN and RT critically ill cct 30 min no overlap Updated 03/06/2021 Continue current ventilatory support 18/450/55/5, Oxygen requirement has increased. CXR with worsening infiltrates., no CHF pt. still unable to tolerate sedation vacation/weaning trial. will hold further trials till clinically better Follow-up surgery recommendations for tracheostomy. May have to hold for now Follow chest x-ray/ABG Follow infectious disease recommendations in regards to antibiotics IVF bolus and low dose levophed. Monitor renal function closely. consult renal S/P remdesivir for full course, has also completed full course of steroids Continue tube feeding for nutritional support DVT/GI prophylaxis: Lovenox Discussed with RN and RT Critical care time 30 minutes addend: cxr with increase interstitial infiltrates c/w COVID Updated 03/05/2021 Continue current ventilatory support 18/450/40/5, pt. still unable to tolerate sedation vacation/weaning trial Follow-up surgery recommendations for tracheostomy Follow chest x-ray/ABG as needed--marginal PO2 no room for weaning Follow infectious disease recommendations in regards to antibiotics S/P remdesivir for full course, has also completed full course of steroids Continue tube feeding for nutritional support DVT/GI prophylaxis: Lovenox Discussed with RN and R Critical care time 30 minutes SHERRIE MARMOLEJO MD Mar 07, 2021 06:07
[2021-03-07 06:16] LABS: BASO # 0.1 x10^3/uL (0.0-0.2); BASO % 1 % (0-3); EOS # 0.8 x10^3/uL (0.0-0.7); EOS % 7 % (0-3); HEMATOCRIT 24.1 % (36.0-47.0); HEMOGLOBIN 7.7 g/dL (12.0-15.5); LYMPH # 1.5 x10^3/uL (1.0-4.8); LYMPH % 13 % (24-48); MEAN CORPUSCULAR HEMOGLOBIN 30 pg (25-35); MEAN CORPUSCULAR HGB CONC 32 g/dL (31-37); MEAN CORPUSCULAR VOLUME 92 fL (79-100); MONO # 0.6 x10^3/uL (0.0-1.1); MONO % 5 % (0-9); NEUT # 8.5 x10^3/uL (1.8-7.7); NEUT % 74 % (31-73); PLATELET COUNT 234 x10^3/uL (140-400); RED BLOOD COUNT 2.61 x10^6/uL (3.50-5.40); RED CELL DISTRIBUTION WIDTH 14.3 % (11.5-14.5); WHITE BLOOD COUNT 11.4 x10^3/uL (4.0-11.0)
--- NOTE | 2021-03-07 07:21 | PDOC ---
Infectious Disease Note Subjective: Subjective Pt intubated T [id number] FiO2 50% PEEP of 5 Discussed with RN Vital Signs: Vital Signs Vital Signs Date Time Temp Pulse Resp B/P (MAP) Pulse Ox O2 Delivery O2 Flow Rate FiO2 03/07/21 06:00 94 23 152/80 (104) 95 Ventilator 03/07/21 04:00 100.7 100.7 03/06/21 20:33 15.0 Physical Exam: PHYSICAL EXAM GENERAL: Intubated and sedated. HEENT: Normocephalic, atraumatic. Anicteric. LUNGS: Rhonchi. HEART: S1, S2. No murmurs. ABDOMEN: Obese, soft. Bowel sounds present. Nontender, nondistended. GENITOURINARY: Abbasi and fecal tube in place. EXTREMITIES: Edema present no cyanosis. CENTRAL NERVOUS SYSTEM: Intubated. PSYCHIATRIC: Unable to assess. Derm has pressure wounds wound pictures noted in chart. Generalized rash, Lines clean Medications: Inpatient Meds: Medications reviewed. Labs: Lab Laboratory Tests Test 03/06/21 07:55 03/06/21 12:18 03/06/21 17:26 03/06/21 21:04 O2 Saturation 88 % (92-99) Arterial Blood pH 7.33 (7.35-7.45) Arterial Blood pCO2 at Patient Temp 41 mmHg (35-46) Arterial Blood pO2 at Patient Temp 57 mmHg (75-108) Arterial Blood HCO3 21 mmol/L (21-28) Arterial Blood Base Excess -5 mmol/L (-3-3) FiO2 55 Glucose (Fingerstick) 192 mg/dL (70-99) 265 mg/dL (70-99) 268 mg/dL (70-99) Test 03/06/21 23:57 03/07/21 05:52 03/07/21 06:00 Glucose (Fingerstick) 288 mg/dL (70-99) 258 mg/dL (70-99) White Blood Count 11.4 x10^3/uL (4.0-11.0) Red Blood Count 2.61 x10^6/uL (3.50-5.40) Hemoglobin 7.7 g/dL (12.0-15.5) Hematocrit 24.1 % (36.0-47.0) Mean Corpuscular Volume 92 fL (79-100) Mean Corpuscular Hemoglobin 30 pg (25-35) Mean Corpuscular Hemoglobin Concent 32 g/dL (31-37) Red Cell Distribution Width 14.3 % (11.5-14.5) Platelet Count 234 x10^3/uL (140-400) Neutrophils (%) (Auto) 74 % (31-73) Lymphocytes (%) (Auto) 13 % (24-48) Monocytes (%) (Auto) 5 % (0-9) Eosinophils (%) (Auto) 7 % (0-3) Basophils (%) (Auto) 1 % (0-3) Neutrophils # (Auto) 8.5 x10^3/uL (1.8-7.7) Lymphocytes # (Auto) 1.5 x10^3/uL (1.0-4.8) Monocytes # (Auto) 0.6 x10^3/uL (0.0-1.1) Eosinophils # (Auto) 0.8 x10^3/uL (0.0-0.7) Basophils # (Auto) 0.1 x10^3/uL (0.0-0.2) Objective: Assessment: 1. Febrile illness. 2. COVID-19 infection present on date of admission, 02/06/2021. Status post remdesivir, dexamethasone. 3. Acute hypoxic respiratory failure, status post intubation. 4. Diabetes. 5. Diarrhea. 6. Hypertension. 7. Hyperlipidemia. 8. Anemia. 9. UC [place], ua neg Plan: Plan of Care Awaiting HD Continue Zosyn, change to renal dosing, Zyvox. start fluconazole 03/07 Follow-up lab ,cultures, C. diff PCR negative Change abbasi if not done already. Wound care per wound treatment Offload Continue supportive care. Critically ill. Prognosis guarded. D/W KAITLYNN CURIEL MD Mar 07, 2021 07:21
[2021-03-07 07:49] LABS: CALCIUM 8.1 mg/dL (8.5-10.1); GFR 11.4; POTASSIUM 4.8 mmol/L (3.5-5.1)
[2021-03-07 07:52] LABS: CREATININE 4.2 mg/dL (0.6-1.0)
[2021-03-07 08:25] LABS: BASE EXCESS ABG -11 mmol/L (-3-3); HCO3 ABG 18 mmol/L (21-28); PCO2 ABG 50 mmHg (35-46); PO2 ABG 60 mmHg (75-108); SAT O2 ABG 86 % (92-99)
--- NOTE | 2021-03-07 08:55 | PDOC2 ---
CONSULT Date of Consult Date of Consult DATE: 03/07/21 TIME: 08:44 Reason for Consult Reason for Consult: BOB Referring Physician Referring Physician: NEYMAR Identification/Chief Complaint Chief Complaint SOB Source Source: Chart review History of Present Illness Reason for Visit: THIS IS A 46 YR OLD WITH N/V INITIALLY. SHE HAD RECENTLY TESTED POS FOR COVID 19. BECAME MORE SOB, INITIALLY ON BIPAP AND NOW INTUBATED IN THE ICU. SHE HAS PROGRESSIVE INCREASE IN HER SUPPLEMENTAL O2 NEEDS. NO CKD NOTED. RENAL CONSULT FOR BOB. CR OF 1.5 YESTERDAY AND NOW 4.2 WITH MET ACIDOSIS AND WORSENING ACIDEMIA AND DECREASING UO. RENAL CONSULT WAS ASKED DUE TO THIS. UA C/W PROB COVID RELATED BOB SHE HAS FINDINGS C/W NEPHRITIS. SHE HAS LEUCOCYTOSIS AND IS ON ANTIBIOTICS. SHE MOST LIKELY HAS A SUPERFICIAL BACTERIAL INFECTION ATOP HER COVID 19 Past Medical History Cardiovascular: HTN Infectious disease: No pertinent hx Renal/: No pertinent hx Endocrine: Diabetes Past Surgical History Past Surgical History: Cholecystectomy, Other (breast augmentation, abdominaplasty) Family History Family History: No Significant Social History No Lives: with Family Current Problem List Problem List Problems Medical Problems: (1) Ketoacidosis Status: Acute Current Medications Current Medications Current Medications Ondansetron HCl (Zofran Odt) 4 mg 1X ONCE PO Last administered on 02/06/21at 23:57; Start 02/06/21 at 23:30; Stop 02/06/21 at 23:31; Status DC Haloperidol Lactate (Haldol Inj) 2.5 mg 1X ONCE IM ; Start 02/07/21 at 02:30; Stop 02/07/21 at 03:56; Status DC Sodium Chloride 1,000 ml @ 1,000 mls/hr 1X ONCE IV Last administered on 02/07/21at 03:41; Start 02/07/21 at 02:30; Stop 02/07/21 at 03:29; Status DC Hydromorphone HCl (Dilaudid) 1 mg 1X ONCE IVP Last administered on 02/07/21at 04:13; Start 02/07/21 at 04:30; Stop 02/07/21 at 04:31; Status DC Sodium Chloride 1,000 ml @ 1,000 mls/hr 1X ONCE IV Last administered on 02/07/21at 10:39; Start 02/07/21 at 06:30; Stop 02/07/21 at 07:29; Status DC Insulin Human Regular 100 unit/ Sodium Chloride 101 ml @ 0 mls/hr CONT PRN PRN IV PER PROTOCOL; Start 02/07/21 at 06:00; Stop 02/07/21 at 16:54; Status DC Potassium Chloride/Water 100 ml @ 100 mls/hr PRN Q1HR PRN IV SEE COMMENTS; Start 02/07/21 at 06:00; Stop 02/07/21 at 16:54; Status DC Potassium Chloride/Water 100 ml @ 100 mls/hr PRN Q1HR PRN IV SEE COMMENTS; Start 02/07/21 at 06:00; Stop 02/07/21 at 16:54; Status DC Potassium Chloride/Water 100 ml @ 100 mls/hr PRN Q1HR PRN IV SEE COMMENTS; Start 02/07/21 at 06:00; Stop 02/07/21 at 16:54; Status DC Insulin Human Regular 100 ml @ 10 mls/hr 1X ONCE IV Last administered on 02/07/21at 09:31; Start 02/07/21 at 06:30; Stop 02/07/21 at 16:54; Status DC Sennosides (Senna) 17.2 mg PRN BID PRN PO CONSTIPATION Last administered on 02/22/21at 08:29; Start 02/07/21 at 08:45 Docusate Sodium (Colace) 100 mg PRN DAILY PRN PO HARD STOOLS; Start 02/07/21 at 08:45; Stop 02/23/21 at 10:47; Status DC Ondansetron HCl (Zofran) 4 mg PRN Q6HRS PRN IVP NAUSEA/VOMITING 1ST CHOICE Last administered on 02/16/21at 15:58; Start 02/07/21 at 08:45 Dextrose (Dextrose 50%-Water Syringe) 12.5 gm PRN Q15MIN PRN IV SEE COMMENTS; Start 02/07/21 at 08:45; Stop 02/08/21 at 16:56; Status DC Sodium Chloride 1,000 ml @ 200 mls/hr Q5H IV Last administered on 02/08/21at 04:05; Start 02/07/21 at 08:45; Stop 02/08/21 at 08:44; Status DC Acetaminophen (Tylenol) 650 mg PRN Q4HRS PRN PO FEVER > 101 Last administered on 02/13/21at 21:35; Start 02/07/21 at 08:45; Stop 02/17/21 at 10:45; Status DC Prochlorperazine Edisylate (Compazine) 10 mg PRN Q6HRS PRN IV NAUSEA/VOMITING 2ND CHOICE Last administered on 02/12/21at 10:35; Start 02/07/21 at 08:45 Insulin Glargine (Lantus Syringe) 5 unit BID SQ Last administered on 02/08/21at 10:24; Start 02/07/21 at 17:00; Stop 02/08/21 at 20:11; Status DC Insulin Human Lispro (HumaLOG) 0-7 UNITS Q4HRS SQ Last administered on 02/08/21at 00:00; Start 02/07/21 at 20:00; Stop 02/08/21 at 00:50; Status DC Dextrose (Dextrose 50%-Water Syringe) 12.5 gm PRN Q15MIN PRN IV SEE COMMENTS; Start 02/07/21 at 17:00; Stop 02/17/21 at 10:45; Status DC Ondansetron HCl (Zofran) 4 mg 1X ONCE IVP Last administered on 02/07/21at 20:06; Start 02/07/21 at 20:00; Stop 02/07/21 at 20:07; Status DC Insulin Human Lispro (HumaLOG) 0-9 UNITS Q4HRS SQ Last administered on 02/13/21at 17:36; Start 02/08/21 at 04:00; Stop 02/13/21 at 21:44; Status DC Metoclopramide HCl (Reglan Vial) 10 mg PRN Q6HRS PRN IVP NAUSEA/VOMITING 3RD CHOICE Last administered on 02/12/21at 15:51; Start 02/08/21 at 00:45 Labetalol HCl (Normodyne Iv Push) 10 mg PRN Q2HR PRN IVP HYPERTENSION, 1st choice Last administered on 02/17/21at 07:19; Start 02/08/21 at 00:45 Acetaminophen (Tylenol Supp) 650 mg PRN Q6HRS PRN ID FEVER > 101; Start 02/08/21 at 01:45; Stop 02/17/21 at 10:45; Status DC Lorazepam (Ativan Inj) 0.5 mg PRN Q6HRS PRN IVP ANXIETY / AGITATION Last administered on 02/16/21at 22:07; Start 02/08/21 at 10:00 Enalaprilat (Vasotec Inj) 0.625 mg Q6HRS IVP Last administered on 02/09/21at 13:42; Start 02/08/21 at 16:15; Stop 02/09/21 at 16:01; Status DC Insulin Glargine (Lantus Syringe) 15 unit BID SQ Last administered on 02/17/21at 20:29; Start 02/08/21 at 21:00; Stop 02/18/21 at 08:09; Status DC Insulin Human Lispro (HumaLOG) 3 units TIDAC SQ Last administered on 02/16/21at 09:10; Start 02/09/21 at 07:30; Stop 02/16/21 at 23:51; Status DC Carvedilol (Coreg) 6.25 mg BIDWMEALS PO Last administered on 02/23/21at 08:06; Start 02/08/21 at 20:30; Stop 02/23/21 at 15:50; Status DC Atorvastatin Calcium (Lipitor) 40 mg HS PO Last administered on 03/06/21at 20:53; Start 02/08/21 at 21:00 Lisinopril (Prinivil) 5 mg DAILY PO Last administered on 02/09/21at 09:48; Start 02/09/21 at 09:00; Stop 02/09/21 at 13:04; Status DC Sodium Chloride 1,000 ml @ 100 mls/hr Q10H IV Last administered on 02/16/21at 12:15; Start 02/09/21 at 07:00; Stop 02/17/21 at 15:37; Status DC Enoxaparin Sodium (Lovenox Per Pharmacy Prophylaxis Dosing) 1 each PRN DAILY PRN MC SEE COMMENTS; Start 02/09/21 at 06:45 Enoxaparin Sodium (Lovenox 40mg Syringe) 40 mg BID SQ Last administered on 03/06/21at 20:53; Start 02/09/21 at 09:00 Lisinopril (Prinivil) 10 mg DAILY PO Last administered on 02/16/21at 09:06; Start 02/10/21 at 09:00; Stop 02/17/21 at 08:29; Status DC Hydromorphone HCl (Dilaudid) 2 mg PRN Q6HRS PRN IVP PAIN Last administered on 02/15/21at 22:00; Start 02/09/21 at 17:15; Stop 02/21/21 at 05:27; Status DC Benzonatate (Tessalon Perle) 100 mg [id number] PO Last administered on 02/16/21at 22:07; Start 02/10/21 at 23:30; Stop 02/17/21 at 10:45; Status DC Guaifenesin (Robitussin Dm) 10 ml PRN Q6HRS PRN PO COUGH Last administered on 02/16/21 09:06; Start 02/10/21 at 23:30 Remdesivir 200 mg/ Sodium Chloride 210 ml @ 210 mls/hr 1X ONCE IV Last administered on 02/11/21at 14:33; Start 02/11/21 at 13:00; Stop 02/12/21 at 11:55; Status DC Remdesivir 100 mg/ Sodium Chloride 230 ml @ 460 mls/hr Q24H IV ; Start 02/12/21 at 13:00; Stop 02/12/21 at 11:55; Status DC Hydralazine HCl (Apresoline Inj) 10 mg PRN Q4HRS PRN IVP ELEVATED BP, 2nd choice Last administered on 02/26/21at 11:23; Start 02/11/21 at 12:15 Ceftriaxone Sodium (Rocephin) 1 gm Q24H IVP Last administered on 02/11/21at 12:55; Start 02/11/21 at 12:30; Stop 02/12/21 at 11:55; Status DC Dexamethasone Sodium Phosphate (Decadron) 6 mg DAILY IVP Last administered on 02/12/21at 09:34; Start 02/11/21 at 13:00; Stop 02/12/21 at 11:55; Status DC Potassium Chloride (Klor-Con) 40 meq 1X ONCE PO Last administered on 02/13/21at 11:11; Start 02/13/21 at 10:30; Stop 02/13/21 at 10:47; Status DC Potassium Chloride (Klor-Con) 40 meq 1X ONCE PO Last administered on 02/13/21at 13:21; Start 02/13/21 at 12:00; Stop 02/13/21 at 12:01; Status DC Insulin Human Lispro (HumaLOG) 0-9 UNITS QIDACHS SQ Last administered on 02/15/21at 22:01; Start 02/14/21 at 07:30; Stop 02/16/21 at 23:51; Status DC Remdesivir 100 mg/ Sodium Chloride 230 ml @ 460 mls/hr Q24H IV Last administered on 02/18/21at 11:52; Start 02/15/21 at 12:00; Stop 02/18/21 at 12:29; Status DC Dexamethasone Sodium Phosphate (Decadron) 6 mg DAILY IVP Last administered on 02/24/21at 08:12; Start 02/15/21 at 09:00; Stop 02/25/21 at 06:41; Status DC Dexamethasone Sodium Phosphate (Decadron) 6 mg 1X ONCE IVP ; Start 02/14/21 at 12:45; Stop 02/14/21 at 12:46; Status DC Ceftriaxone Sodium (Rocephin) 1 gm Q24H IVP Last administered on 02/22/21at 12:42; Start 02/14/21 at 13:00; Stop 02/23/21 at 07:34; Status DC Azithromycin 250 mg/Sodium Chloride 250 ml @ 250 mls/hr Q24H IV Last administered on 02/18/21at 11:51; Start 02/14/21 at 13:30; Stop 02/18/21 at 14:29; Status DC Dexamethasone Sodium Phosphate (Decadron) 6 mg 1X ONCE IVP Last administered on 02/14/21at 18:17; Start 02/14/21 at 17:15; Stop 02/14/21 at 17:16; Status DC Alteplase, Recombinant (Cathflo For Central Catheter Clearance) 1 mg 1X ONCE INT CAT Last administered on 02/16/21at 08:41; Start 02/16/21 at 08:00; Stop 02/16/21 at 08:01; Status DC Dexmedetomidine HCl 400 mcg/ Sodium Chloride 100 ml @ 0 mls/hr CONT PRN IV PER PROTOCOL Last administered on 02/17/21at 20:27; Start 02/16/21 at 12:00; Stop 02/27/21 at 09:37; Status DC Sodium Chloride 500 ml @ 500 mls/hr 1X PRN PRN IV SEE COMMENTS; Start 02/16/21 at 12:00 Atropine Sulfate (ATROPINE 0.5mg SYRINGE) 0.5 mg PRN Q5MIN PRN IV SEE COMMENTS; Start 02/16/21 at 12:00 Lactobacillus Rhamnosus (Culturelle) 1 cap BID PO Last administered on 02/16/21at 22:02; Start 02/16/21 at 21:00; Stop 02/17/21 at 10:45; Status DC Famotidine (Pepcid Vial) 20 mg BID IVP Last administered on 03/06/21at 20:53; Start 02/16/21 at 21:00 Furosemide (Lasix) 20 mg 1X ONCE IVP Last administered on 02/16/21at 18:38; Start 02/16/21 at 18:30; Stop 02/16/21 at 18:34; Status DC Furosemide (Lasix) 20 mg 1X ONCE IVP Last administered on 02/16/21at 22:18; Start 02/16/21 at 22:15; Stop 02/16/21 at 22:16; Status DC Insulin Human Lispro (HumaLOG) 3 units Q6HRS SQ Last administered on 02/18/21at 05:40; Start 02/17/21 at 00:00; Stop 02/18/21 at 08:09; Status DC Insulin Human Lispro (HumaLOG) 0-9 UNITS Q6HRS SQ Last administered on 03/07/21at 06:14; Start 02/17/21 at 00:00 Lisinopril (Prinivil) 20 mg DAILY PO Last administered on 02/27/21at 09:10; Start 02/17/21 at 09:00 Fentanyl Citrate 30 ml @ 0 mls/hr CONT PRN IV SEE PROTOCOL Last administered on 03/07/21at 03:42; Start 02/17/21 at 10:00 Propofol 100 ml @ 0 mls/hr CONT PRN IV PER PROTOCOL Last administered on 03/07/21at 06:33; Start 02/17/21 at 10:00 Glycerin/ Hypromellose/ Polyethylene (Artificial Tears) 1 drop PRN Q1HR PRN OU DRY EYE; Start 02/17/21 at 10:00 Midazolam HCl 100 ml @ 0 mls/hr CONT PRN IV SEE PROTOCOL Last administered on 03/06/21at 22:50; Start 02/17/21 at 10:00 Succinylcholine Chloride (Anectine) 200 mg STK-MED ONCE .ROUTE ; Start 02/17/21 at 09:58; Stop 02/17/21 at 09:58; Status DC Acetaminophen (Tylenol) 650 mg PRN Q6HRS PRN PEG MILD PAIN / TEMP > 100.3'F Last administered on 03/05/21at 10:43; Start 02/17/21 at 10:45 Insulin Glargine (Lantus Syringe) 20 unit BID SQ Last administered on 02/18/21at 20:54; Start 02/18/21 at 09:00; Stop 02/19/21 at 07:47; Status DC Insulin Human Lispro (HumaLOG) 5 units Q6HRS SQ Last administered on 02/19/21at 06:23; Start 02/18/21 at 12:00; Stop 02/19/21 at 07:47; Status DC Insulin Glargine (Lantus Syringe) 25 unit BID SQ Last administered on 02/27/21at 20:42; Start 02/19/21 at 09:00; Stop 02/28/21 at 09:34; Status DC Insulin Human Lispro (HumaLOG) 8 units Q6HRS SQ Last administered on 02/19/21at 11:33; Start 02/19/21 at 12:00; Stop 02/19/21 at 12:32; Status DC Insulin Human Lispro (HumaLOG) 10 units Q6HRS SQ Last administered on 02/20/21at 06:38; Start 02/19/21 at 18:00; Stop 02/20/21 at 08:14; Status DC Insulin Human Lispro (HumaLOG) 12 units Q6HRS SQ Last administered on 02/27/21at 05:41; Start 02/20/21 at 12:00; Stop 02/28/21 at 15:38; Status DC Piperacillin Sod/ Tazobactam Sod (Zosyn Per Pharmacy) 1 each PRN DAILY PRN MC SEE COMMENTS; Start 02/23/21 at 07:45 Piperacillin Sod/ Tazobactam Sod 4.5 gm/Sodium Chloride 100 ml @ 200 mls/hr Q6HRS IV Last administered on 03/07/21at 06:12; Start 02/23/21 at 08:00; Stop 03/07/21 at 08:18; Status DC Docusate Sodium (Colace Solution) 100 mg BID PO Last administered on 03/06/21at 11:20; Start 02/23/21 at 12:00 Amlodipine Besylate (Norvasc) 5 mg DAILY NG Last administered on 02/27/21at 09:10; Start 02/24/21 at 09:00 Methylprednisolone Sodium Succinate (SOLU-Medrol 125MG VIAL) 80 mg Q8HRS IV Last administered on 02/26/21at 05:52; Start 02/25/21 at 09:00; Stop 02/26/21 at 07:09; Status DC Succinylcholine Chloride (Anectine) 200 mg STK-MED ONCE .ROUTE ; Start 02/17/21 at 10:00; Stop 02/25/21 at 08:40; Status DC Dexamethasone Sodium Phosphate (Decadron) 4 mg 1X ONCE IVP ; Start 02/26/21 at 10:00; Stop 02/26/21 at 07:15; Status DC Dexamethasone Sodium Phosphate (Decadron) 2 mg 1X ONCE IVP ; Start 02/27/21 at 09:00; Stop 02/26/21 at 07:15; Status DC Dexmedetomidine HCl 400 mcg/ Sodium Chloride 100 ml @ 0 mls/hr CONT PRN IV PER PROTOCOL Last administered on 03/07/21at 06:34; Start 02/27/21 at 09:45 Sodium Chloride 500 ml @ 500 mls/hr 1X PRN PRN IV SEE COMMENTS; Start 02/27/21 at 09:45; Status Cancel Alteplase, Recombinant (Cathflo) 2 mg 1X ONCE INT CAT Last administered on 02/27/21at 11:20; Start 02/27/21 at 11:00; Stop 02/27/21 at 11:01; Status DC Alteplase, Recombinant (Cathflo For Central Catheter Clearance) 1 mg 1X ONCE IN T CAT Last administered on 02/27/21at 15:18; Start 02/27/21 at 14:30; Stop 02/27/21 at 14:36; Status DC Alteplase, Recombinant (Cathflo For Central Catheter Clearance) 1 mg 1X ONCE INT CAT Last administered on 02/27/21at 15:19; Start 02/27/21 at 14:30; Stop 02/27/21 at 14:36; Status DC Dextrose (Dextrose 50%-Water Syringe) 25 gm STK-MED ONCE IV ; Start 02/27/21 at 23:48; Stop 02/27/21 at 23:48; Status DC Dextrose (Dextrose 50%-Water Syringe) 25 gm 1X ONCE IV Last administered on 02/27/21at 23:55; Start 02/28/21 at 00:00; Stop 02/28/21 at 00:01; Status DC Insulin Glargine (Lantus Syringe) 20 unit BID SQ Last administered on 02/28/21at 21:06; Start 02/28/21 at 10:00; Stop 03/01/21 at 14:18; Status DC Dextrose (Dextrose 50%-Water Syringe) 12.5 gm PRN Q15MIN PRN IV SEE COMMENTS Last administered on 03/01/21at 12:55; Start 03/01/21 at 13:00 Insulin Glargine (Lantus Syringe) 15 unit QHS SQ Last administered on 03/05/21at 21:26; Start 03/01/21 at 21:00; Stop 03/06/21 at 07:17; Status DC Nystatin (Nystop) 1 reji BID TP Last administered on 03/06/21at 21:28; Start 03/02/21 at 21:00 Vancomycin HCl 1 gm/Sodium Chloride 250 ml @ 250 mls/hr Q12H IV ; Start 03/04/21 at 20:00; Status UNV Vancomycin HCl 2 gm/Sodium Chloride 500 ml @ 250 mls/hr 1X ONCE IV Last admi nistered on 03/04/21at 19:26; Start 03/04/21 at 19:00; Stop 03/04/21 at 20:59; Status DC Vancomycin HCl (Vanco Per Pharmacy) 1 each PRN DAILY PRN MC SEE COMMENTS Last administered on 03/04/21at 19:47; Start 03/04/21 at 18:30; Stop 03/05/21 at 08:59; Status DC Vancomycin HCl 1.5 gm/Sodium Chloride 500 ml @ 250 mls/hr Q12H IV ; Start 03/05/21 at 07:30; Stop 03/05/21 at 08:58; Status DC Vancomycin HCl (Vancomycin Trough Level) 1 each 1X ONCE MC ; Start 03/06/21 at 07:00; Stop 03/06/21 at 07:01; Status Cancel Linezolid (Zyvox) 600 mg BID PO Last administered on 03/06/21at 20:53; Start 03/05/21 at 09:00 Insulin Glargine (Lantus Syringe) 15 unit BID SQ ; Start 03/06/21 at 09:00; Stop 03/06/21 at 07:25; Status DC Insulin Glargine (Lantus Syringe) 5 unit BID SQ Last administered on 03/06/21at 21:28; Start 03/06/21 at 09:00 Norepinephrine Bitartrate 8 mg/ Dextrose 258 ml @ 21.711 mls/ hr CONT PRN IV PER PROTOCOL Last administered on 03/07/21at 06:07; Start 03/06/21 at 13:45 Vecuronium [place] (Norcuron Bolus) 6 mg PRN Q2HRS PRN IV VENTILATOR COMPLIANCE Last administered on 03/06/21at 14:37; Start 03/06/21 at 14:30 Sodium Chloride 1,000 ml @ 1,000 mls/hr 1X ONCE IV Last administered on 03/06/21at 16:00; Start 03/06/21 at 16:00; Stop 03/06/21 at 19:16; Status DC Sodium Chloride 1,000 ml @ 1,000 mls/hr 1X ONCE IV Last administered on 03/06/21at 20:37; Start 03/06/21 at 19:15; Stop 03/06/21 at 20:14; Status DC Piperacillin Sod/ Tazobactam Sod 2.25 gm/Sodium Chloride 50 ml @ 100 mls/hr Q8HRS IV ; Start 03/07/21 at 14:00 Fluconazole/ Sodium Chloride 100 ml @ 100 mls/hr Q24H IV ; Start 03/07/21 at 09:00 Active Scripts Active Reported Novolog Flexpen (Insulin Aspart) 100 Unit/1 Ml Insuln.pen 3-7 SQ TIDACHC Lisinopril 5 Mg Tablet 1 Tab PO DAILY Lantus Solostar (Insulin Glargine,Hum.rec.anlog) 100 Unit/1 Ml Insuln.pen 5 Unit SQ QHS Atorvastatin Calcium 40 Mg Tablet 40 Mg PO HS Allergies Allergies: Coded Allergies: venom-honey bee (Verified Allergy, Severe, Shortness of Air, 04/21/15) oxycodone (Unverified Allergy, Intermediate, Itching, 04/21/15) shellfish derived (Unverified Allergy, Intermediate, Itching, 04/21/15) ROS Review of System UNABLE TO OBTAIN Physical Exam Physical Exam FACIAL EDEMA General: Other (SEDATED) HEENT: Atraumatic, Other (ETT AND GT) Lungs: Other (EXP WHEEZES, DECREASED AT BASES) Heart: Regular rate Abdomen: Normal bowel sounds, Soft, No tenderness Extremities: No clubbing, No cyanosis, Other (2+ EDEMA) Neuro: Normal gait, Other (SEDATED) Psych/Mental Status: Other (ON THE VENT AND SEDATED) Vitals VITALS Vital Signs Date Time Temp Pulse Resp B/P (MAP) Pulse Ox O2 Delivery O2 Flow Rate FiO2 03/07/21 08:12 94 Ventilator 03/07/21 06:00 94 23 152/80 (104) 03/07/21 04:00 100.7 100.7 03/06/21 20:33 15.0 Labs Labs Laboratory Tests Test 03/05/21 11:15 03/05/21 18:47 03/05/21 21:46 03/05/21 23:53 White Blood Count 14.5 x10^3/uL (4.0-11.0) Red Blood Count 2.73 x10^6/uL (3.50-5.40) Hemoglobin 8.0 g/dL (12.0-15.5) Hematocrit 24.7 % (36.0-47.0) Mean Corpuscular Volume 91 fL (79-100) Mean Corpuscular Hemoglobin 29 pg (25-35) Mean Corpuscular Hemoglobin Concent 32 g/dL (31-37) Red Cell Distribution Width 13.6 % (11.5-14.5) Platelet Count 196 x10^3/uL (140-400) Neutrophils (%) (Auto) 78 % (31-73) Lymphocytes (%) (Auto) 8 % (24-48) Monocytes (%) (Auto) 7 % (0-9) Eosinophils (%) (Auto) 6 % (0-3) Basophils (%) (Auto) 1 % (0-3) Neutrophils # (Auto) 11.3 x10^3/uL (1.8-7.7) Lymphocytes # (Auto) 1.2 x10^3/uL (1.0-4.8) Monocytes # (Auto) 1.1 x10^3/uL (0.0-1.1) Eosinophils # (Auto) 0.9 x10^3/uL (0.0-0.7) Basophils # (Auto) 0.1 x10^3/uL (0.0-0.2) Sodium Level 140 mmol/L (136-145) Potassium Level 3.6 mmol/L (3.5-5.1) Chloride Level 108 mmol/L (98-107) Carbon Dioxide Level 23 mmol/L (21-32) Anion Gap 9 (6-14) Blood Urea Nitrogen 20 mg/dL (7-20) Creatinine 1.5 mg/dL (0.6-1.0) Estimated GFR (Cockcroft-Gault) 37.6 BUN/Creatinine Ratio 13 (6-20) Glucose Level 159 mg/dL (70-99) Calcium Level 7.6 mg/dL (8.5-10.1) Total Bilirubin 0.4 mg/dL (0.2-1.0) Aspartate Amino Transf (AST/SGOT) 42 U/L (15-37) Alanine Aminotransferase (ALT/SGPT) 25 U/L (14-59) Alkaline Phosphatase 90 U/L (46-116) Total Protein 5.6 g/dL (6.4-8.2) Albumin 1.2 g/dL (3.4-5.0) Albumin/Globulin Ratio 0.3 (1.0-1.7) Glucose (Fingerstick) 197 mg/dL (70-99) 222 mg/dL (70-99) 251 mg/dL (70-99) Test 03/06/21 05:00 03/06/21 05:52 03/06/21 07:55 03/06/21 12:18 Clostridium difficile Toxin (PCR) Negative (NEGATIVE) Glucose (Fingerstick) 60 mg/dL (70-99) 192 mg/dL (70-99) O2 Saturation 88 % (92-99) Arterial Blood pH 7.33 (7.35-7.45) Arterial Blood pCO2 at Patient Temp 41 mmHg (35-46) Arterial Blood pO2 at Patient Temp 57 mmHg (75-108) Arterial Blood HCO3 21 mmol/L (21-28) Arterial Blood Base Excess -5 mmol/L (-3-3) FiO2 55 Test 03/06/21 17:26 03/06/21 21:04 03/06/21 23:57 03/07/21 05:52 Glucose (Fingerstick) 265 mg/dL (70-99) 268 mg/dL (70-99) 288 mg/dL (70-99) 258 mg/dL (70-99) Test 03/07/21 06:00 03/07/21 07:30 White Blood Count 11.4 x10^3/uL (4.0-11.0) Red Blood Count 2.61 x10^6/uL (3.50-5.40) Hemoglobin 7.7 g/dL (12.0-15.5) Hematocrit 24.1 % (36.0-47.0) Mean Corpuscular Volume 92 fL (79-100) Mean Corpuscular Hemoglobin 30 pg (25-35) Mean Corpuscular Hemoglobin Concent 32 g/dL (31-37) Red Cell Distribution Width 14.3 % (11.5-14.5) Platelet Count 234 x10^3/uL (140-400) Neutrophils (%) (Auto) 74 % (31-73) Lymphocytes (%) (Auto) 13 % (24-48) Monocytes (%) (Auto) 5 % (0-9) Eosinophils (%) (Auto) 7 % (0-3) Basophils (%) (Auto) 1 % (0-3) Neutrophils # (Auto) 8.5 x10^3/uL (1.8-7.7) Lymphocytes # (Auto) 1.5 x10^3/uL (1.0-4.8) Monocytes # (Auto) 0.6 x10^3/uL (0.0-1.1) Eosinophils # (Auto) 0.8 x10^3/uL (0.0-0.7) Basophils # (Auto) 0.1 x10^3/uL (0.0-0.2) Sodium Level 132 mmol/L (136-145) Potassium Level 4.8 mmol/L (3.5-5.1) Chloride Level 98 mmol/L (98-107) Carbon Dioxide Level 19 mmol/L (21-32) Anion Gap 15 (6-14) Blood Urea Nitrogen 45 mg/dL (7-20) Creatinine 4.2 mg/dL (0.6-1.0) Estimated GFR (Cockcroft-Gault) 11.4 Glucose Level 342 mg/dL (70-99) Calcium Level 8.1 mg/dL (8.5-10.1) Laboratory Tests Test 03/06/21 12:18 03/06/21 17:26 03/06/21 21:04 03/06/21 23:57 Glucose (Fingerstick) 192 mg/dL (70-99) 265 mg/dL (70-99) 268 mg/dL (70-99) 288 mg/dL (70-99) Test 03/07/21 05:52 03/07/21 06:00 03/07/21 07:30 Glucose (Fingerstick) 258 mg/dL (70-99) White Blood Count 11.4 x10^3/uL (4.0-11.0) Red Blood Count 2.61 x10^6/uL (3.50-5.40) Hemoglobin 7.7 g/dL (12.0-15.5) Hematocrit 24.1 % (36.0-47.0) Mean Corpuscular Volume 92 fL (79-100) Mean Corpuscular Hemoglobin 30 pg (25-35) Mean Corpuscular Hemoglobin Concent 32 g/dL (31-37) Red Cell Distribution Width 14.3 % (11.5-14.5) Platelet Count 234 x10^3/uL (140-400) Neutrophils (%) (Auto) 74 % (31-73) Lymphocytes (%) (Auto) 13 % (24-48) Monocytes (%) (Auto) 5 % (0-9) Eosinophils (%) (Auto) 7 % (0-3) Basophils (%) (Auto) 1 % (0-3) Neutrophils # (Auto) 8.5 x10^3/uL (1.8-7.7) Lymphocytes # (Auto) 1.5 x10^3/uL (1.0-4.8) Monocytes # (Auto) 0.6 x10^3/uL (0.0-1.1) Eosinophils # (Auto) 0.8 x10^3/uL (0.0-0.7) Basophils # (Auto) 0.1 x10^3/uL (0.0-0.2) Sodium Level 132 mmol/L (136-145) Potassium Level 4.8 mmol/L (3.5-5.1) Chloride Level 98 mmol/L (98-107) Carbon Dioxide Level 19 mmol/L (21-32) Anion Gap 15 (6-14) Blood Urea Nitrogen 45 mg/dL (7-20) Creatinine 4.2 mg/dL (0.6-1.0) Estimated GFR (Cockcroft-Gault) 11.4 Glucose Level 342 mg/dL (70-99) Calcium Level 8.1 mg/dL (8.5-10.1) Assessment/Plan Assessment/Plan IMP [id number] HEMATURIA GLUCOSURIA MET AND RESP ACIDOSIS WITH ACIDEMIA COVID 19 PNEUMONIA ACUTE RESP FAILURE DM II HTN OBESITY ANEMIA LEUCOCYTOSIS PLAN NEEDS TO START DIALYSIS FOR WORSENING ACIDOSIS, ANURIA AND DECREASING CLEARANCE WILL REQUEST IR TO PLACE TEMP HD LINE WILL PLAN FOR HD TODAY UF ABOUT 3.0 LITERS TOLERATED QB 350+ QE 500 3 K STANDARD DIALYSATE CONTROL BG ANTIBIOTICS ID EVAL AND TX WILL AVOID 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
[2021-03-07 09:04] LABS: FIO2 ABG 70/VENT
[2021-03-07] MEDS: FLUCONAZOLE 200MG/100ML PREMIX 100 ML IV SCH (09:22)
[2021-03-07] MEDS: FAMOTIDINE 20 MG/2 ML VIAL IVP SCH ×2 (09:23→21:10)
[2021-03-07] MEDS: LINEZOLID 600 MG TABLET PO SCH ×2 (09:23→21:10)
[2021-03-07] MEDS: DOCUSATE 100 MG/10 ML SOLUTION. PO SCH ×2 (09:24→21:00)
[2021-03-07] MEDS: NYSTATIN TOPICAL POWDER 15GM BOTTLE. TP SCH ×2 (09:25→21:00)
[2021-03-07] MEDS: LISINOPRIL 20 MG TABLET PO SCH (09:25)
[2021-03-07] MEDS: ENOXAPARIN 40 MG/0.4 ML SYRINGE. SQ SCH ×2 (10:26→21:11)
[2021-03-07] MEDS: MIDAZOLAM 100mg/100ml NS BAG 100 ML IV PRN ×2 (10:26→20:17)
[2021-03-07] MEDS: INSULIN GLARGINE SYRINGE. SQ SCH ×2 (10:27→22:11)
--- NOTE | 2021-03-07 12:40 | PDOC ---
[employer] PROGRESS NOTE Date of Service DOS: DATE: 03/07/21 TIME: 12:37 Chief Complaint Chief Complaint Hypotension COVID-19 positive infection Tractable nausea vomiting DKA Combined metabolic and respiratory acidosis Acute electrolyte derangementhyponatremia, hypochloremia due to volume depletion Hyperglycemia uncontrolled BOB due to vasomotor nephropathy Erythrocytosis Reglan for diabetic gastroparesis Candiduria Sacral decubitus ulcer Started on fluconazole today and Zosyn Continue Covid measures Patient intubated Pulmonary following SCD for DVT prophylaxis Protonix GI prophylaxis ADA diet Full code Discussed with RN and SW Disposition inpatient management as above Surrogate decision maker is Brian Whitmore History of Present Illness History of Present Illness 46 year old female who presents with nausea/vomiting since 7 AM yesterday morning. Patient states that her recently tested positive for Covid. She states that he "coughed in my face because he thought it was funny." She reports subjective fevers and chills and nausea/vomiting. Denies sore throat, cough, shortness of breath. No chest pain. Does have some upper abdominal discomfort after vomiting, that she attributes to muscular strain. She is not vaccinated for Covid. 02/08/2021 No acute events overnight. Patient seen and examined bedside and resting comfortably. Continues to complain of nausea not able to tolerate any diet at this time. Saturating 98% on room air. Patient's chart, labs, images were reviewed and discussed with RN 02/09/2021: Afebrile, currently breathing on room air. Still with complaints of nausea and vomiting x3 today. States that she has history of similar symptoms that have been mildly improved with IV Dilaudid. Discussed with patient that I will provide IV Dilaudid to help with her nausea, but she will not discharged on this medication. Will obtain 6-minute walk to evaluate oxygen requirements. Upon discharge, I recommend self quarantine for 10 days for resolution of her symptoms. Discussed with patient that she will discharge tomorrow. 02/10/2021: Patient febrile today with T-max 102.2 F. She still admits to nausea, denies any further vomiting. We will continue to provide supportive care and monitor for any recurrent fevers overnight. Patient continues to improve may discharge tomorrow to continue self-isolation. 02/11/2021: Febrile overnight, T-max 102.3 F. She did become hypoxic overnight, currently breathing on 4 L nasal cannula. Also admits to associated vomiting or diarrhea overnight. Discussed with RN, will initiate remdesivir and closely monitor LFTs. We will also treat with IV Decadron, and prophylactic antibiotics. 02/12/2021: Low-grade fever overnight, T-max 99.7. Currently breathing on room air. Will discontinue remdesivir, steroids, and antibiotics; will observe overnight. Still with complaints of vomiting x1 and diarrhea. We will continue to provide supportive care and hope to discharge in the next day or so. 02/13/2021: Afebrile. Still complains of intermittent diarrhea. At the time of my evaluation she was breathing on 6 L nasal cannula; this is somewhat misleading as patient states that she did not feel short of breath but was placed on 6 L by nursing staff overnight. Will have RN reassess her oxygen requirements as I did anticipate discharging today. 02/14/2021: Afebrile, currently breathing on 8 L nasal cannula. There has been some misleading documentation, chart oxygen this patient is requiring. Discussed with RN, will resume remdesivir to complete total of 5 days. Continue to monitor LFTs. Will add steroids, Rocephin, and azithromycin. Continue supportive care. 02/15/2021: Afebrile. Became much more hypoxic overnight, requiring BiPAP. At the time of my evaluation she is still breathing on BiPAP. Consultation was placed to pulmonology. Had discussion with Dr. Myrick about initiating Tocilizumab, but currently there is 1 more person in the ER that would be more deserving. When stocks are replenished, she will be first inline to receive this medication. She is also first-line to be transferred down to ICU. Critical care time 30 minutes spent reviewing labs, reviewing imaging, discussion with Dr. Myrick, and discussion with RN. 02/16/2021 No acute events overnight. Patient becoming more hypoxic saturating 94% and requiring BiPAP. Patient will be transferred to the ICU at this time. For worsening clinical status. Discussed with pulmonary. Patient's chart, labs, images were reviewed and discussed with RN 02/17/21 Transferred to ICU yesterday afternoon. Seen and examined at bedside she remains on 100% FiO2 on BiPAP. Respirations do appear somewhat labored. Suspect intubation may be impending. We will closely monitor. Increase lisinopril to 20 today. Plan of care discussed with bedside RN. 02/18/21 Patient required intubation yesterday afternoon. Saw and examined this morning. She is intubated and sedated. Increase insulin today. Covid protocol ordered. Wean as tolerated. Plan of care discussed with bedside nurse. 02/19/21 Bedside. She remains intubated and sedated. Continue Covid protocol. Wean ox ygen sedation as tolerated. Pulmonary following. Plan of care discussed with bedside RN. 02/20/21 Patient seen and examined at bedside. She remains intubated and sedated. No major clinical changes. Continue current treatment. Pulmonary following. Plan of care discussed with bedside RN. 02/21/21 Patient seen and examined at bedside. Remains intubated and sedated date and admission clinical changes. Increase free water flushes today due to hypernatremia. Plan of care discussed with bedside nurse. 02/22/21 Patient seen and examined at bedside. O2 requirement actually improving, although remains intubated. Possible SBT in the coming days. Hypernatremia improving. Plan of care discussed bedside RN. 02/23/2021: Patient remains in ICU on ventilator with FiO2 100%, PEEP 7. Repeat chest x-ray yesterday showed diffuse bilateral pulmonary opacities with no interval improvement. Will discontinue Rocephin and initiate Zosyn. We will continue IV steroids for a full 10-day course (to be completed 02/25/2021). Completed remdesivir. Continue supportive care. Critical care time 30 minutes spent reviewing charts, reviewing imaging, reviewing labs, discussion with RN. 02/24/2021: Afebrile. On vent with FiO2 40%, PEEP 6. Her Coreg has been held due to persistent bradycardia. No documented history of systolic heart failure or previous echocardiogram. Will need to obtain echocardiogram prior to discharge. Continue IV steroids and antibiotics. 02/25/2021: Afebrile. Remains ventilated with FiO2 45%, PEEP 6. Chest x-ray today showed slight improvement of the pulmonary infiltrates, no pneumothorax. Completed 10-day course of IV Decadron. Will initiate slow Solu-Medrol taper. Continue IV Zosyn. Continue supportive care. Will need echocardiogram prior to discharge to evaluate heart failure. Critical care time 30 minutes spent reviewing charts, reviewing imaging, reviewing labs, discussion with RN. 02/26/2021: Afebrile. On vent with FiO2 45%, PEEP 6. Completed 10 days of IV Decadron. Will continue IV Zosyn. Continue supportive care. Critical care time 30 minutes spent reviewing charts, reviewing imaging, reviewing labs, discussion with RN. 02/27/2021: Afebrile. On vent with FiO2 45%, PEEP 6. Completed 10 days of steroids and completed remdesivir. Continue with IV Zosyn. CPAP trial yesterday. Continue NG tube and supportive care. Critical care time 30 minutes spent reviewing charts, reviewing imaging, reviewing labs, discussion with RN. 02/28/2021:. Patient remains on vent with FiO2 40%, PEEP 5. Afebrile. Completed steroids and remdesivir. Some noted hypoglycemia overnight, will de- escalate basal insulin. Continue IV Zosyn. Ventilator management per pulmonology. Continue NG tube and supportive care. Critical care time 30 minutes spent reviewing charts, reviewing imaging, reviewing labs, discussion with RN. 03/01/2021: On vent with FiO2 40%, PEEP 5. Afebrile. Completed steroids and remdesivir. Blood glucose well controlled. Continue empiric antibiotics with Zosyn. Ventilator management per pulmonology. Continue NG tube and supportive care. Critical care time 30 minutes spent reviewing charts, reviewing imaging, reviewing labs, discussion with RN. 03/02/2021 No acute events overnight. Patient hypotensive the morning due to oversedation. Will wean off sedation and keep antihypertensive medications on board. Currently saturating 100% on vent settings of 18/450/40/5. Will attempt spontaneous breathing trial today to see how patient does. Defer this management to pulmonary. Patient's chart, labs, images were reviewed and discussed with RN A total of 36 minutes of critical care time was spent in reviewing chart, labs, and images. Discussed with RN and KIRBY. 03/03/2021 No acute events overnight. Patient saturating 98% on vent settings of 18/450/40/5. Will defer spontaneous breathing trials to pulmonary at this time. Patient's chart, labs, images were reviewed and discussed with RN A total of 37 minutes of critical care time was spent in reviewing chart, labs, and images. Discussed with RN and KIRBY. 03/04/2021 No acute events overnight. Patient saturating 9 9% on vent settings of 18/450/30/5. Patient currently is unable to tolerate weaning. Per pulmonary. Patient's chart, labs, images were reviewed and discussed with RN A total of 34 minutes of critical care time was spent in reviewing chart, labs, and images. Discussed with RN and KIRBY. 03/05/2021 No acute events overnight. Patient is saturating 97% on vent settings of 18/450/55/5. Her FiO2 needs to be increased due to abnormal ABG with 7.3 7/42/5 03/03. Patient's chart, labs, images were reviewed and discussed with RN A total of 35 minutes of critical care time was spent in reviewing chart, labs, and images. Discussed with RN and KIRBY. 03/06/2021 No acute events overnight. Patient saturating 94% on vent settings of 18/450/55/5. Chest x-ray showing increase in pulmonary infiltrates. Wound care is consulted for decubitus ulcer patient's chart, labs, images were reviewed and discussed with RN A total of 35 minutes of critical care time was spent in reviewing chart, labs, and images. Discussed with RN and KIRBY. 03/07/2021 No acute events overnight. Patient saturating 94% on vent settings of 20/450/70/8. Patient now heading into renal failure with her creatinine bumped up from 1.5-4.2. Decreased urine output. Plan for hemodialysis today and temporary catheter placement and nephrology is consulted. Vitals/I&O Vitals/I&O: Vital Signs Date Time Temp Pulse Resp B/P (MAP) Pulse Ox O2 Delivery O2 Flow Rate FiO2 03/07/21 12:21 98 Ventilator 03/07/21 12:00 100.6 84 24 112/68 (83) 100.6 03/07/21 08:00 15.0 I & O 03/06/21 03/06/21 03/07/21 15:00 23:00 07:00 Intake Total 400 ml 1398 ml 2244.49 ml Output Total 120 ml 120 ml 50 ml Balance 280 ml 1278 ml 2194.49 ml Physical Exam Physical Exam: GENERAL: Intubated and sedated. HEENT: Normocephalic, atraumatic. Anicteric. LUNGS: Rhonchi. HEART: S1, S2. No murmurs. ABDOMEN: Obese, soft. Bowel sounds present. Nontender, nondistended. GENITOURINARY: Kenr and fecal tube in place. EXTREMITIES: Edema present no cyanosis. CENTRAL NERVOUS SYSTEM: Intubated. PSYCHIATRIC: Unable to assess. Derm has pressure wounds wound pictures noted in chart. Generalized rash, Lines clean General: Other Heart: Regular rate Abdomen: Normal bowel sounds, Soft, No tenderness Extremities: No clubbing, No cyanosis, Other Skin: No rashes, No significant lesion Labs Labs: Laboratory Tests Test 03/06/21 17:26 03/06/21 21:04 03/06/21 23:57 03/07/21 05:52 Glucose (Fingerstick) 265 mg/dL (70-99) 268 mg/dL (70-99) 288 mg/dL (70-99) 258 mg/dL (70-99) Test 03/07/21 06:00 03/07/21 07:30 03/07/21 08:00 03/07/21 11:31 White Blood Count 11.4 x10^3/uL (4.0-11.0) Red Blood Count 2.61 x10^6/uL (3.50-5.40) Hemoglobin 7.7 g/dL (12.0-15.5) Hematocrit 24.1 % (36.0-47.0) Mean Corpuscular Volume 92 fL (79-100) Mean Corpuscular Hemoglobin 30 pg (25-35) Mean Corpuscular Hemoglobin Concent 32 g/dL (31-37) Red Cell Distribution Width 14.3 % (11.5-14.5) Platelet Count 234 x10^3/uL (140-400) Neutrophils (%) (Auto) 74 % (31-73) Lymphocytes (%) (Auto) 13 % (24-48) Monocytes (%) (Auto) 5 % (0-9) Eosinophils (%) (Auto) 7 % (0-3) Basophils (%) (Auto) 1 % (0-3) Neutrophils # (Auto) 8.5 x10^3/uL (1.8-7.7) Lymphocytes # (Auto) 1.5 x10^3/uL (1.0-4.8) Monocytes # (Auto) 0.6 x10^3/uL (0.0-1.1) Eosinophils # (Auto) 0.8 x10^3/uL (0.0-0.7) Basophils # (Auto) 0.1 x10^3/uL (0.0-0.2) Sodium Level 132 mmol/L (136-145) Potassium Level 4.8 mmol/L (3.5-5.1) Chloride Level 98 mmol/L (98-107) Carbon Dioxide Level 19 mmol/L (21-32) Anion Gap 15 (6-14) Blood Urea Nitrogen 45 mg/dL (7-20) Creatinine 4.2 mg/dL (0.6-1.0) Estimated GFR (Cockcroft-Gault) 11.4 Glucose Level 342 mg/dL (70-99) Calcium Level 8.1 mg/dL (8.5-10.1) O2 Saturation 86 % (92-99) Arterial Blood pH 7.17 (7.35-7.45) Arterial Blood pCO2 at Patient Temp 50 mmHg (35-46) Arterial Blood pO2 at Patient Temp 60 mmHg (75-108) Arterial Blood HCO3 18 mmol/L (21-28) Arterial Blood Base Excess -11 mmol/L (-3-3) FiO2 70/vent Glucose (Fingerstick) 332 mg/dL (70-99) Assessment and Plan Assessmemt and Plan Problems Medical Problems: (1) Ketoacidosis Status: Acute Comment Review of Relevant I have reviewed the following items mazin (where applicable) has been applied. Medications: Current Medications Medications (Trade) Dose Ordered Sig/Pepe Route PRN Reason Start Time Stop Time Status Last Admin Dose Admin Norepinephrine Bitartrate 8 mg/ Dextrose 258 ml @ 21.711 mls/ hr CONT PRN IV PER PROTOCOL 03/06/21 13:45 03/07/21 06:07 Vecuronium [place] (Norcuron Bolus) 6 mg PRN Q2HRS PRN IV VENTILATOR COMPLIANCE 03/06/21 14:30 03/06/21 14:37 Sodium Chloride 1,000 ml @ 1,000 mls/hr 1X ONCE IV 03/06/21 16:00 03/06/21 19:16 DC 03/06/21 16:00 Sodium Chloride 1,000 ml @ 1,000 mls/hr 1X ONCE IV 03/06/21 19:15 03/06/21 20:14 DC 03/06/21 20:37 Fluconazole/ Sodium Chloride 100 ml @ 100 mls/hr Q24H IV 03/07/21 09:00 03/07/21 09:22 Justifications for Admission Other Justification SRIKANTH DAVIS MD Mar 07, 2021 12:40
[2021-03-07] MEDS ORDERED: LIDOCAINE WITH 8.4% SOD BICARB 3 ML DISP.SYRIN. INJ ONE (13:15)
[2021-03-07] MEDS ORDERED: LIDOCAINE WITH 8.4% SOD BICARB 3 ML DISP.SYRIN. ONE (13:25)
[2021-03-07] MEDS: VECURONIUM BOLUS 10 MG VIAL. IV PRN (13:53)
[2021-03-07] MEDS: PIPERACILLIN/TAZOBACTAM 2.25 GM in IV NORMAL SALINE 50ML 50 ML IV SCH ×2 (13:55→22:44)
--- NOTE | 2021-03-07 14:27 | PDOC ---
SURGICAL PROGRESS NOTE DATE: 03/07/21 TIME: 14:26 Subjective Pt intubated, increasing oxygen demands, now at 70% Vital Signs Vital Signs Date Time Temp Pulse Resp B/P (MAP) Pulse Ox O2 Delivery O2 Flow Rate FiO2 03/07/21 13:32 24 90 Ventilator 03/07/21 13:00 81 110/64 (79) 03/07/21 12:00 100.6 100.6 03/07/21 08:00 15.0 I&O Intake and Output 03/07/21 07:00 Intake Total 4042.49 ml Output Total 290 ml Balance 3752.49 ml IV Total 2208.49 ml Tube Feeding 1634 ml Other 200 ml Output Urine Total 290 ml General: No acute distress HEENT: Other (orally intubated) Labs Laboratory Tests Test 03/05/21 18:47 03/05/21 21:46 03/05/21 23:53 03/06/21 05:00 Glucose (Fingerstick) 197 mg/dL (70-99) 222 mg/dL (70-99) 251 mg/dL (70-99) Clostridium difficile Toxin (PCR) Negative (NEGATIVE) Test 03/06/21 05:52 03/06/21 07:55 03/06/21 12:18 03/06/21 17:26 Glucose (Fingerstick) 60 mg/dL (70-99) 192 mg/dL (70-99) 265 mg/dL (70-99) O2 Saturation 88 % (92-99) Arterial Blood pH 7.33 (7.35-7.45) Arterial Blood pCO2 at Patient Temp 41 mmHg (35-46) Arterial Blood pO2 at Patient Temp 57 mmHg (75-108) Arterial Blood HCO3 21 mmol/L (21-28) Arterial Blood Base Excess -5 mmol/L (-3-3) FiO2 55 Test 03/06/21 21:04 03/06/21 23:57 03/07/21 05:52 03/07/21 06:00 Glucose (Fingerstick) 268 mg/dL (70-99) 288 mg/dL (70-99) 258 mg/dL (70-99) White Blood Count 11.4 x10^3/uL (4.0-11.0) Red Blood Count 2.61 x10^6/uL (3.50-5.40) Hemoglobin 7.7 g/dL (12.0-15.5) Hematocrit 24.1 % (36.0-47.0) Mean Corpuscular Volume 92 fL (79-100) Mean Corpuscular Hemoglobin 30 pg (25-35) Mean Corpuscular Hemoglobin Concent 32 g/dL (31-37) Red Cell Distribution Width 14.3 % (11.5-14.5) Platelet Count 234 x10^3/uL (140-400) Neutrophils (%) (Auto) 74 % (31-73) Lymphocytes (%) (Auto) 13 % (24-48) Monocytes (%) (Auto) 5 % (0-9) Eosinophils (%) (Auto) 7 % (0-3) Basophils (%) (Auto) 1 % (0-3) Neutrophils # (Auto) 8.5 x10^3/uL (1.8-7.7) Lymphocytes # (Auto) 1.5 x10^3/uL (1.0-4.8) Monocytes # (Auto) 0.6 x10^3/uL (0.0-1.1) Eosinophils # (Auto) 0.8 x10^3/uL (0.0-0.7) Basophils # (Auto) 0.1 x10^3/uL (0.0-0.2) Test 03/07/21 07:30 03/07/21 08:00 03/07/21 11:31 Sodium Level 132 mmol/L (136-145) Potassium Level 4.8 mmol/L (3.5-5.1) Chloride Level 98 mmol/L (98-107) Carbon Dioxide Level 19 mmol/L (21-32) Anion Gap 15 (6-14) Blood Urea Nitrogen 45 mg/dL (7-20) Creatinine 4.2 mg/dL (0.6-1.0) Estimated GFR (Cockcroft-Gault) 11.4 Glucose Level 342 mg/dL (70-99) Calcium Level 8.1 mg/dL (8.5-10.1) O2 Saturation 86 % (92-99) Arterial Blood pH 7.17 (7.35-7.45) Arterial Blood pCO2 at Patient Temp 50 mmHg (35-46) Arterial Blood pO2 at Patient Temp 60 mmHg (75-108) Arterial Blood HCO3 18 mmol/L (21-28) Arterial Blood Base Excess -11 mmol/L (-3-3) FiO2 70/vent Glucose (Fingerstick) 332 mg/dL (70-99) Laboratory Tests Test 03/06/21 17:26 03/06/21 21:04 03/06/21 23:57 03/07/21 05:52 Glucose (Fingerstick) 265 mg/dL (70-99) 268 mg/dL (70-99) 288 mg/dL (70-99) 258 mg/dL (70-99) Test 03/07/21 06:00 03/07/21 07:30 03/07/21 08:00 03/07/21 11:31 White Blood Count 11.4 x10^3/uL (4.0-11.0) Red Blood Count 2.61 x10^6/uL (3.50-5.40) Hemoglobin 7.7 g/dL (12.0-15.5) Hematocrit 24.1 % (36.0-47.0) Mean Corpuscular Volume 92 fL (79-100) Mean Corpuscular Hemoglobin 30 pg (25-35) Mean Corpuscular Hemoglobin Concent 32 g/dL (31-37) Red Cell Distribution Width 14.3 % (11.5-14.5) Platelet Count 234 x10^3/uL (140-400) Neutrophils (%) (Auto) 74 % (31-73) Lymphocytes (%) (Auto) 13 % (24-48) Monocytes (%) (Auto) 5 % (0-9) Eosinophils (%) (Auto) 7 % (0-3) Basophils (%) (Auto) 1 % (0-3) Neutrophils # (Auto) 8.5 x10^3/uL (1.8-7.7) Lymphocytes # (Auto) 1.5 x10^3/uL (1.0-4.8) Monocytes # (Auto) 0.6 x10^3/uL (0.0-1.1) Eosinophils # (Auto) 0.8 x10^3/uL (0.0-0.7) Basophils # (Auto) 0.1 x10^3/uL (0.0-0.2) Sodium Level 132 mmol/L (136-145) Potassium Level 4.8 mmol/L (3.5-5.1) Chloride Level 98 mmol/L (98-107) Carbon Dioxide Level 19 mmol/L (21-32) Anion Gap 15 (6-14) Blood Urea Nitrogen 45 mg/dL (7-20) Creatinine 4.2 mg/dL (0.6-1.0) Estimated GFR (Cockcroft-Gault) 11.4 Glucose Level 342 mg/dL (70-99) Calcium Level 8.1 mg/dL (8.5-10.1) O2 Saturation 86 % (92-99) Arterial Blood pH 7.17 (7.35-7.45) Arterial Blood pCO2 at Patient Temp 50 mmHg (35-46) Arterial Blood pO2 at Patient Temp 60 mmHg (75-108) Arterial Blood HCO3 18 mmol/L (21-28) Arterial Blood Base Excess -11 mmol/L (-3-3) FiO2 70/vent Glucose (Fingerstick) 332 mg/dL (70-99) Problem List Problems Medical Problems: (1) Ketoacidosis Status: Acute Assessment/Plan pt unstable at this time, will hold off on planning tracheostomy Justicifation of Admission Dx: Justifications for Admission: Justification of Admission Dx: N/A DANIEL ACHARYA MD Mar 07, 2021 14:27
--- NOTE | 2021-03-07 15:22 | RAD ---
Site ID: [id number] EXAMINATION: XR CHEST 1V. HISTORY: 46 years Female Reason: RENAL FAILURE - TRIALYSIS CATHETER PLACEMENT EVALUATION - IR TO DO RX / Spl. Instructions: / History: . . COMPARISON: 03/06/2021. Findings: Extensive infiltrates are again seen in the lungs, with slight improvement compared to the previous exam. The right IJ central venous catheter for dialysis is placed in good position with the tip at the distal SVC level. There is also a the right the PICC line with the tip in the right atrium and the ET tube, both unchanged from the previous exam. The heart size is normal. There is no effusi on or pneumothorax. The mediastinum and samia appear unremarkable. Impression: New placement of right IJ temporary dialysis catheter in good position. Extensive infiltr ates with the mild improvement. Electronically signed by: Zack Espinosa MD (03/07/2021 3:20 PM) [id number]
[2021-03-07] MEDS ORDERED: DIALYSIS PATIENT. MC PRN (20:45)
[2021-03-07] MEDS: ATORVASTATIN CALCIUM 40 MG TABLET. PO SCH (21:10)
[2021-03-08] VITALS (32 sets, daily range): BP systolic 60–138; BP diastolic 41–78
[2021-03-08] MEDS: INSULIN LISPRO 300 UNITS/3 ML VIAL. SQ SCH ×5 (00:39→17:52)
[2021-03-08] MEDS: DEXMEDETOMIDINE 400 MCG in IV NORMAL SALINE 100ML 96 ML IV PRN ×6 (01:07→22:51)
[2021-03-08] MEDS: PROPOFOL 100 ML IV PRN ×4 (03:34→19:08)
[2021-03-08] MEDS: PIPERACILLIN/TAZOBACTAM 2.25 GM in IV NORMAL SALINE 50ML 50 ML IV SCH ×3 (06:26→22:22)
--- NOTE | 2021-03-08 07:10 | PDOC ---
PULMONARY PROGRESS NOTES DATE: 03/08/21 TIME: 07:07 Subjective Patient remains on vent support had hd yesterday Oxygen requirement has increased to 60% peep 8 sedated on prop versed precedex vec prn levo low dose Vitals Vital Signs Date Time Temp Pulse Resp B/P (MAP) Pulse Ox O2 Delivery O2 Flow Rate FiO2 03/08/21 06:00 80 24 114/65 (81) 91 Ventilator 03/08/21 04:00 99.9 99.9 03/07/21 08:00 Comments Visual exam done due to COVID-19. intubated NC AT RRR no accessory muscle use abd obese No skin rash or leg edema. Labs Laboratory Tests Test 03/06/21 07:55 03/06/21 12:18 03/06/21 17:26 03/06/21 21:04 O2 Saturation 88 % (92-99) Arterial Blood pH 7.33 (7.35-7.45) Arterial Blood pCO2 at Patient Temp 41 mmHg (35-46) Arterial Blood pO2 at Patient Temp 57 mmHg (75-108) Arterial Blood HCO3 21 mmol/L (21-28) Arterial Blood Base Excess -5 mmol/L (-3-3) FiO2 55 Glucose (Fingerstick) 192 mg/dL (70-99) 265 mg/dL (70-99) 268 mg/dL (70-99) Test 03/06/21 23:57 03/07/21 05:52 03/07/21 06:00 03/07/21 07:30 Glucose (Fingerstick) 288 mg/dL (70-99) 258 mg/dL (70-99) White Blood Count 11.4 x10^3/uL (4.0-11.0) Red Blood Count 2.61 x10^6/uL (3.50-5.40) Hemoglobin 7.7 g/dL (12.0-15.5) Hematocrit 24.1 % (36.0-47.0) Mean Corpuscular Volume 92 fL (79-100) Mean Corpuscular Hemoglobin 30 pg (25-35) Mean Corpuscular Hemoglobin Concent 32 g/dL (31-37) Red Cell Distribution Width 14.3 % (11.5-14.5) Platelet Count 234 x10^3/uL (140-400) Neutrophils (%) (Auto) 74 % (31-73) Lymphocytes (%) (Auto) 13 % (24-48) Monocytes (%) (Auto) 5 % (0-9) Eosinophils (%) (Auto) 7 % (0-3) Basophils (%) (Auto) 1 % (0-3) Neutrophils # (Auto) 8.5 x10^3/uL (1.8-7.7) Lymphocytes # (Auto) 1.5 x10^3/uL (1.0-4.8) Monocytes # (Auto) 0.6 x10^3/uL (0.0-1.1) Eosinophils # (Auto) 0.8 x10^3/uL (0.0-0.7) Basophils # (Auto) 0.1 x10^3/uL (0.0-0.2) Sodium Level 132 mmol/L (136-145) Potassium Level 4.8 mmol/L (3.5-5.1) Chloride Level 98 mmol/L (98-107) Carbon Dioxide Level 19 mmol/L (21-32) Anion Gap 15 (6-14) Blood Urea Nitrogen 45 mg/dL (7-20) Creatinine 4.2 mg/dL (0.6-1.0) Estimated GFR (Cockcroft-Gault) 11.4 Glucose Level 342 mg/dL (70-99) Calcium Level 8.1 mg/dL (8.5-10.1) Test 03/07/21 08:00 03/07/21 11:31 03/07/21 17:27 03/07/21 21:24 O2 Saturation 86 % (92-99) Arterial Blood pH 7.17 (7.35-7.45) Arterial Blood pCO2 at Patient Temp 50 mmHg (35-46) Arterial Blood pO2 at Patient Temp 60 mmHg (75-108) Arterial Blood HCO3 18 mmol/L (21-28) Arterial Blood Base Excess -11 mmol/L (-3-3) FiO2 70/vent Glucose (Fingerstick) 332 mg/dL (70-99) 248 mg/dL (70-99) 178 mg/dL (70-99) Test 03/08/21 00:17 03/08/21 06:41 Glucose (Fingerstick) 219 mg/dL (70-99) 149 mg/dL (70-99) Laboratory Tests Test 03/07/21 07:30 03/07/21 08:00 03/07/21 11:31 03/07/21 17:27 Sodium Level 132 mmol/L (136-145) Potassium Level 4.8 mmol/L (3.5-5.1) Chloride Level 98 mmol/L (98-107) Carbon Dioxide Level 19 mmol/L (21-32) Anion Gap 15 (6-14) Blood Urea Nitrogen 45 mg/dL (7-20) Creatinine 4.2 mg/dL (0.6-1.0) Estimated GFR (Cockcroft-Gault) 11.4 Glucose Level 342 mg/dL (70-99) Calcium Level 8.1 mg/dL (8.5-10.1) O2 Saturation 86 % (92-99) Arterial Blood pH 7.17 (7.35-7.45) Arterial Blood pCO2 at Patient Temp 50 mmHg (35-46) Arterial Blood pO2 at Patient Temp 60 mmHg (75-108) Arterial Blood HCO3 18 mmol/L (21-28) Arterial Blood Base Excess -11 mmol/L (-3-3) FiO2 70/vent Glucose (Fingerstick) 332 mg/dL (70-99) 248 mg/dL (70-99) Test 03/07/21 21:24 03/08/21 00:17 03/08/21 06:41 Glucose (Fingerstick) 178 mg/dL (70-99) 219 mg/dL (70-99) 149 mg/dL (70-99) Medications Active Scripts Medications Dose Route/Sig Max Daily Dose Days Date Category Novolog Flexpen (Insulin Aspart) 100 Unit/1 Ml Insuln.pen 3-7 SQ TIDACHC 02/07/21 Reported Lisinopril 5 Mg Tablet 1 Tab PO DAILY 02/07/21 Reported Lantus Solostar (Insulin Glargine,Hum.rec.anlog) 100 Unit/1 Ml Insuln.pen 5 Unit SQ QHS 04/09/15 Reported Atorvastatin Calcium 40 Mg Tablet 40 Mg PO HS 04/09/15 Reported Comments cxr 03/06 reviewed 1. Significant interval increase in diffuse pulmonary infiltrate. 2. Stable support lines and tubes. Impression . IMPRESSION: 1. Acute hypoxic respiratory failure secondary to COVID-19 viral pneumonia/acute lung injury and early acute respiratory distress syndrome. S/P intubation 02/17/21,--Now worsening hypoxia since 03/05, fever, low BP and BOB, New sepsis and secondary infection. 2. Nonsmoker. 3. Abnormal chest x-ray consistent with COVID-19 viral pneumonia.--- 4. Diabetic ketoacidosis as initial presentation, currently better.--resolved 5. Underlying obesity contributing to hypoxia as well. 6. BOB worsening hd started 03/07 7. Fever, On broad-spectrum antibiotics. Infectious disease following. Plan . Updated 03/08/2021 Continue current ventilatory support, setting reviewed, on peep 8 fio2 60% titrate peep fio2 as tolerated levophed to keep map 65. hd started 03/07 per nephro CXR with worsening infiltrates. Follow-up surgery recommendations for tracheostomy. worsening would prob need trach Follow chest x-ray/ABG Follow infectious disease recommendations in regards to antibiotics S/P remdesivir for full course, has also completed full course of steroids Continue tube feeding for nutritional support elevate hob DVT/GI prophylaxis: Lovenox Discussed with RN and RT critically ill cct 30 min no overlap Updated 03/07/2021 Continue current ventilatory support, setting reviewed, will increase peep to 7 abg reviewed will increase peep to 8 rr to 24 levophed to keep map 65. Monitor renal function closely. cr 4.2 today renal consulted they will start dialysis today Oxygen requirement has increased. CXR with worsening infiltrates., no CHF Follow-up surgery recommendations for tracheostomy. Follow chest x-ray/ABG Follow infectious disease recommendations in regards to antibiotics S/P remdesivir for full course, has also completed full course of steroids Continue tube feeding for nutritional support DVT/GI prophylaxis: Lovenox Discussed with RN and RT critically ill cct 30 min no overlap Updated 03/06/2021 Continue current ventilatory support 18/450/55/5, Oxygen requirement has increased. CXR with worsening infiltrates., no CHF pt. still unable to tolerate sedation vacation/weaning trial. will hold further trials till clinically better Follow-up surgery recommendations for tracheostomy. May have to hold for now Follow chest x-ray/ABG Follow infectious disease recommendations in regards to antibiotics IVF bolus and low dose levophed. Monitor renal function closely. consult renal S/P remdesivir for full course, has also completed full course of steroids Continue tube feeding for nutritional support DVT/GI prophylaxis: Lovenox Discussed with RN and RT Critical care time 30 minutes addend: cxr with increase interstitial infiltrates c/w COVID Updated 03/05/2021 Continue current ventilatory support 18/450/40/5, pt. still unable to tolerate sedation vacation/weaning trial Follow-up surgery recommendations for tracheostomy Follow chest x-ray/ABG as needed--marginal PO2 no room for weaning Follow infectious disease recommendations in regards to antibiotics S/P remdesivir for full course, has also completed full course of steroids Continue tube feeding for nutritional support DVT/GI prophylaxis: Lovenox Discussed with RN and R Critical care time 30 minutes SHERRIE MARMOLEJO MD Mar 08, 2021 07:10
--- NOTE | 2021-03-08 07:18 | PDOC ---
Infectious Disease Note Subjective: Subjective Pt intubated Fever pattern improved T [id number] Had nausea and vomiting last p.m. TF on hold on HD March 07 Discussed with RN Vital Signs: Vital Signs Vital Signs Date Time Temp Pulse Resp B/P (MAP) Pulse Ox O2 Delivery O2 Flow Rate FiO2 03/08/21 06:00 80 24 114/65 (81) 91 Ventilator 03/08/21 04:00 99.9 99.9 03/07/21 08:00 Physical Exam: PHYSICAL EXAM GENERAL: Intubated and sedated. HEENT: Normocephalic, atraumatic. Anicteric. Neck right IJ HDC clean LUNGS: Rhonchi. HEART: S1, S2. No murmurs. ABDOMEN: Obese, soft. Bowel sounds present. Nontender, nondistended. GENITOURINARY: Abbasi and fecal tube in place. EXTREMITIES: Edema present no cyanosis. CENTRAL NERVOUS SYSTEM: Intubated. PSYCHIATRIC: Unable to assess. Derm has pressure wounds wound pictures noted in chart. Generalized rash, PICC line , right IJ HDC clean Medications: Inpatient Meds: Medications reviewed. Labs: Lab Laboratory Tests Test 03/07/21 07:30 03/07/21 08:00 03/07/21 11:31 03/07/21 17:27 Sodium Level 132 mmol/L (136-145) Potassium Level 4.8 mmol/L (3.5-5.1) Chloride Level 98 mmol/L (98-107) Carbon Dioxide Level 19 mmol/L (21-32) Anion Gap 15 (6-14) Blood Urea Nitrogen 45 mg/dL (7-20) Creatinine 4.2 mg/dL (0.6-1.0) Estimated GFR (Cockcroft-Gault) 11.4 Glucose Level 342 mg/dL (70-99) Calcium Level 8.1 mg/dL (8.5-10.1) O2 Saturation 86 % (92-99) Arterial Blood pH 7.17 (7.35-7.45) Arterial Blood pCO2 at Patient Temp 50 mmHg (35-46) Arterial Blood pO2 at Patient Temp 60 mmHg (75-108) Arterial Blood HCO3 18 mmol/L (21-28) Arterial Blood Base Excess -11 mmol/L (-3-3) FiO2 70/vent Glucose (Fingerstick) 332 mg/dL (70-99) 248 mg/dL (70-99) Test 03/07/21 21:24 03/08/21 00:17 03/08/21 06:41 Glucose (Fingerstick) 178 mg/dL (70-99) 219 mg/dL (70-99) 149 mg/dL (70-99) Objective: Assessment: 1. Febrile illness. 2. COVID-19 infection present on date of admission, 02/06/2021. Status post remdesivir, dexamethasone. 3. Acute hypoxic respiratory failure, status post intubation. Trach cultures positive for [place] albicans 4. Diabetes. 5. Diarrhea. 6. Hypertension. 7. Hyperlipidemia. 8. Anemia. 9. BOB on HD 10.UC [place], ua neg Plan: Plan of Care Continue Zosyn, renal dosing, Zyvox. Continue fluconazole renal dosing 03/07 Follow-up lab ,cultures, C. diff PCR negative Change abbasi if not done already. Wound care per wound treatment Offload Continue supportive care. Critically ill. Prognosis guarded. D/W KAITLYNN CURIEL MD Mar 08, 2021 07:18
[2021-03-08 07:29] LABS: BASO % 0 % (0-3); EOS # 1.2 x10^3/uL (0.0-0.7); EOS % 10 % (0-3); LYMPH # 1.3 x10^3/uL (1.0-4.8); LYMPH % 10 % (24-48); MEAN CORPUSCULAR HEMOGLOBIN 30 pg (25-35); MEAN CORPUSCULAR HGB CONC 33 g/dL (31-37); MEAN CORPUSCULAR VOLUME 89 fL (79-100); MONO # 0.6 x10^3/uL (0.0-1.1); MONO % 5 % (0-9); NEUT # 9.4 x10^3/uL (1.8-7.7); NEUT % 75 % (31-73); PLATELET COUNT 203 x10^3/uL (140-400); RED BLOOD COUNT 2.71 x10^6/uL (3.50-5.40); WHITE BLOOD COUNT 12.6 x10^3/uL (4.0-11.0)
[2021-03-08 07:39] LABS: ALBUMIN 1.1 g/dL (3.4-5.0); ALBUMIN/GLOBULIN RATIO 0.2 (1.0-1.7); CALCIUM 7.9 mg/dL (8.5-10.1); CREATININE 4.1 mg/dL (0.6-1.0); GFR 11.8; MAGNESIUM 2.2 mg/dL (1.8-2.4); PHOSPHORUS 5.4 mg/dL (2.6-4.7); POTASSIUM 4.2 mmol/L (3.5-5.1); TOTAL BILIRUBIN 0.6 mg/dL (0.2-1.0); TOTAL PROTEIN 6.8 g/dL (6.4-8.2)
[2021-03-08] MEDS: FLUCONAZOLE 200MG/100ML PREMIX 100 ML IV SCH (08:23)
[2021-03-08] MEDS: NOREPINEPHRINE VIAL 8 MG in IV DEXTROSE 5% 250 ML IV PRN (08:23)
[2021-03-08] MEDS: DOCUSATE 100 MG/10 ML SOLUTION. PO SCH ×2 (08:24→20:50)
[2021-03-08] MEDS: LISINOPRIL 20 MG TABLET PO SCH (08:25)
[2021-03-08] MEDS: FAMOTIDINE 20 MG/2 ML VIAL IVP SCH ×2 (08:25→20:50)
[2021-03-08] MEDS: LINEZOLID 600 MG TABLET PO SCH ×2 (08:26→20:49)
[2021-03-08] MEDS: ENOXAPARIN 40 MG/0.4 ML SYRINGE. SQ SCH (08:26)
[2021-03-08] MEDS: NYSTATIN TOPICAL POWDER 15GM BOTTLE. TP SCH ×2 (08:27→20:50)
[2021-03-08] MEDS: INSULIN GLARGINE SYRINGE. SQ SCH ×2 (08:27→20:50)
[2021-03-08 08:36] LABS: BASE EXCESS ABG -6 mmol/L (-3-3); HCO3 ABG 20 mmol/L (21-28); PCO2 ABG 37 mmHg (35-46); PO2 ABG 74 mmHg (75-108); SAT O2 ABG 93 % (92-99)
[2021-03-08 08:37] LABS: FIO2 ABG 60
--- NOTE | 2021-03-08 09:47 | RAD ---
Examination: Frontal view of the abdomen HISTORY: History of orogastric tube placement COMPARISON: None available FINDINGS: Mild bibasilar lung airspace opacities likely atelectasis or infiltrates. The feeding tube tip is john ntified in the stomach. Cholecystectomy changes. Nonspecific bowel gas pattern. IMPRESSION: 1. NG tube in place. Electronically signed by: Jose Rafael Calderon MD (03/08/2021 9:45 AM) [id number]
--- NOTE | 2021-03-08 10:56 | PDOC ---
[facility] [facility] PROGRESS NOTE Date of Service DOS: DATE: 03/08/21 TIME: 10:54 Chief Complaint Chief Complaint Hypotension COVID-19 positive infection Tractable nausea vomiting DKA Combined metabolic and respiratory acidosis Acute electrolyte derangementhyponatremia, hypochloremia due to volume depletion Hyperglycemia uncontrolled BOB due to vasomotor nephropathy Erythrocytosis Reglan for diabetic gastroparesis Candiduria Sacral decubitus ulcer Started on fluconazole today and Zosyn Continue Covid measures Patient intubated Pulmonary following SCD for DVT prophylaxis Protonix GI prophylaxis ADA diet Full code Discussed with RN and SW Disposition inpatient management as above Surrogate decision maker is Brian Whitmore History of Present Illness History of Present Illness 46 year old female who presents with nausea/vomiting since 7 AM yesterday morning. Patient states that her recently tested positive for Covid. She states that he "coughed in my face because he thought it was funny." She reports subjective fevers and chills and nausea/vomiting. Denies sore throat, cough, shortness of breath. No chest pain. Does have some upper abdominal discomfort after vomiting, that she attributes to muscular strain. She is not vaccinated for Covid. 02/08/2021 No acute events overnight. Patient seen and examined bedside and resting comfortably. Continues to complain of nausea not able to tolerate any diet at this time. Saturating 98% on room air. Patient's chart, labs, images were reviewed and discussed with RN 02/09/2021: Afebrile, currently breathing on room air. Still with complaints of nausea and vomiting x3 today. States that she has history of similar symptoms that have been mildly improved with IV Dilaudid. Discussed with patient that I will provide IV Dilaudid to help with her nausea, but she will not discharged on this medication. Will obtain 6-minute walk to evaluate oxygen requirements. Upon discharge, I recommend self quarantine for 10 days for resolution of her symptoms. Discussed with patient that she will discharge tomorrow. 02/10/2021: Patient febrile today with T-max 102.2 F. She still admits to nausea, denies any further vomiting. We will continue to provide supportive care and monitor for any recurrent fevers overnight. Patient continues to improve may discharge tomorrow to continue self-isolation. 02/11/2021: Febrile overnight, T-max 102.3 F. She did become hypoxic overnight, currently breathing on 4 L nasal cannula. Also admits to associated vomiting or diarrhea overnight. Discussed with RN, will initiate remdesivir and closely monitor LFTs. We will also treat with IV Decadron, and prophylactic antibiotics. 02/12/2021: Low-grade fever overnight, T-max 99.7. Currently breathing on room air. Will discontinue remdesivir, steroids, and antibiotics; will observe overnight. Still with complaints of vomiting x1 and diarrhea. We will continue to provide supportive care and hope to discharge in the next day or so. 02/13/2021: Afebrile. Still complains of intermittent diarrhea. At the time of my evaluation she was breathing on 6 L nasal cannula; this is somewhat misleading as patient states that she did not feel short of breath but was placed on 6 L by nursing staff overnight. Will have RN reassess her oxygen requirements as I did anticipate discharging today. 02/14/2021: Afebrile, currently breathing on 8 L nasal cannula. There has been some misleading documentation, chart oxygen this patient is requiring. Discussed with RN, will resume remdesivir to complete total of 5 days. Continue to monitor LFTs. Will add steroids, Rocephin, and azithromycin. Continue supportive care. 02/15/2021: Afebrile. Became much more hypoxic overnight, requiring BiPAP. At the time of my evaluation she is still breathing on BiPAP. Consultation was placed to pulmonology. Had discussion with Dr. Myrick about initiating Tocilizumab, but currently there is 1 more person in the ER that would be more deserving. When stocks are replenished, she will be first inline to receive this medication. She is also first-line to be transferred down to ICU. Critical care time 30 minutes spent reviewing labs, reviewing imaging, discussion with Dr. Myrick, and discussion with RN. 02/16/2021 No acute events overnight. Patient becoming more hypoxic saturating 94% and requiring BiPAP. Patient will be transferred to the ICU at this time. For worsening clinical status. Discussed with pulmonary. Patient's chart, labs, images were reviewed and discussed with RN 02/17/21 Transferred to ICU yesterday afternoon. Seen and examined at bedside she remains on 100% FiO2 on BiPAP. Respirations do appear somewhat labored. Suspect intubation may be impending. We will closely monitor. Increase lisinopril to 20 today. Plan of care discussed with bedside RN. 02/18/21 Patient required intubation yesterday afternoon. Saw and examined this morning. She is intubated and sedated. Increase insulin today. Covid protocol ordered. Wean as tolerated. Plan of care discussed with bedside nurse. 02/19/21 Bedside. She remains intubated and sedated. Continue Covid protocol. Wean ox ygen sedation as tolerated. Pulmonary following. Plan of care discussed with bedside RN. 02/20/21 Patient seen and examined at bedside. She remains intubated and sedated. No major clinical changes. Continue current treatment. Pulmonary following. Plan of care discussed with bedside RN. 02/21/21 Patient seen and examined at bedside. Remains intubated and sedated date and admission clinical changes. Increase free water flushes today due to hypernatremia. Plan of care discussed with bedside nurse. 02/22/21 Patient seen and examined at bedside. O2 requirement actually improving, although remains intubated. Possible SBT in the coming days. Hypernatremia improving. Plan of care discussed bedside RN. 02/23/2021: Patient remains in ICU on ventilator with FiO2 100%, PEEP 7. Repeat chest x-ray yesterday showed diffuse bilateral pulmonary opacities with no interval improvement. Will discontinue Rocephin and initiate Zosyn. We will continue IV steroids for a full 10-day course (to be completed 02/25/2021). Completed remdesivir. Continue supportive care. Critical care time 30 minutes spent reviewing charts, reviewing imaging, reviewing labs, discussion with RN. 02/24/2021: Afebrile. On vent with FiO2 40%, PEEP 6. Her Coreg has been held due to persistent bradycardia. No documented history of systolic heart failure or previous echocardiogram. Will need to obtain echocardiogram prior to discharge. Continue IV steroids and antibiotics. 02/25/2021: Afebrile. Remains ventilated with FiO2 45%, PEEP 6. Chest x-ray today showed slight improvement of the pulmonary infiltrates, no pneumothorax. Completed 10-day course of IV Decadron. Will initiate slow Solu-Medrol taper. Continue IV Zosyn. Continue supportive care. Will need echocardiogram prior to discharge to evaluate heart failure. Critical care time 30 minutes spent reviewing charts, reviewing imaging, reviewing labs, discussion with RN. 02/26/2021: Afebrile. On vent with FiO2 45%, PEEP 6. Completed 10 days of IV Decadron. Will continue IV Zosyn. Continue supportive care. Critical care time 30 minutes spent reviewing charts, reviewing imaging, reviewing labs, discussion with RN. 02/27/2021: Afebrile. On vent with FiO2 45%, PEEP 6. Completed 10 days of steroids and completed remdesivir. Continue with IV Zosyn. CPAP trial yesterday. Continue NG tube and supportive care. Critical care time 30 minutes spent reviewing charts, reviewing imaging, reviewing labs, discussion with RN. 02/28/2021:. Patient remains on vent with FiO2 40%, PEEP 5. Afebrile. Completed steroids and remdesivir. Some noted hypoglycemia overnight, will de- escalate basal insulin. Continue IV Zosyn. Ventilator management per pulmonology. Continue NG tube and supportive care. Critical care time 30 minutes spent reviewing charts, reviewing imaging, reviewing labs, discussion with RN. 03/01/2021: On vent with FiO2 40%, PEEP 5. Afebrile. Completed steroids and remdesivir. Blood glucose well controlled. Continue empiric antibiotics with Zosyn. Ventilator management per pulmonology. Continue NG tube and supportive care. Critical care time 30 minutes spent reviewing charts, reviewing imaging, reviewing labs, discussion with RN. 03/02/2021 No acute events overnight. Patient hypotensive the morning due to oversedation. Will wean off sedation and keep antihypertensive medications on board. Currently saturating 100% on vent settings of 18/450/40/5. Will attempt spontaneous breathing trial today to see how patient does. Defer this management to pulmonary. Patient's chart, labs, images were reviewed and discussed with RN A total of 36 minutes of critical care time was spent in reviewing chart, labs, and images. Discussed with RN and KIRBY. 03/03/2021 No acute events overnight. Patient saturating 98% on vent settings of 18/450/40/5. Will defer spontaneous breathing trials to pulmonary at this time. Patient's chart, labs, images were reviewed and discussed with RN A total of 37 minutes of critical care time was spent in reviewing chart, labs, and images. Discussed with RN and KIRBY. 03/04/2021 No acute events overnight. Patient saturating 9 9% on vent settings of 18/450/30/5. Patient currently is unable to tolerate weaning. Per pulmonary. Patient's chart, labs, images were reviewed and discussed with RN A total of 34 minutes of critical care time was spent in reviewing chart, labs, and images. Discussed with RN and KIRBY. 03/05/2021 No acute events overnight. Patient is saturating 97% on vent settings of 18/450/55/5. Her FiO2 needs to be increased due to abnormal ABG with 7.3 7/42/5 03/03. Patient's chart, labs, images were reviewed and discussed with RN A total of 35 minutes of critical care time was spent in reviewing chart, labs, and images. Discussed with RN and KIRBY. 03/06/2021 No acute events overnight. Patient saturating 94% on vent settings of 18/450/55/5. Chest x-ray showing increase in pulmonary infiltrates. Wound care is consulted for decubitus ulcer patient's chart, labs, images were reviewed and discussed with RN A total of 35 minutes of critical care time was spent in reviewing chart, labs, and images. Discussed with RN and KIRBY. 03/07/2021 No acute events overnight. Patient saturating 94% on vent settings of 20/450/70/8. Patient now heading into renal failure with her creatinine bumped up from 1.5-4.2. Decreased urine output. Plan for hemodialysis today and temporary catheter placement and nephrology is consulted. A total of 34 minutes of critical care time was spent in reviewing chart, labs, and images. Discussed with RN and KIRBY. 03/08/2021 No acute events overnight. Patient did have a nausea vomiting episode and tube feeds were held. KUB repeat shows NG tube still in the stomach. Will resume tube feeds at trickle and advance to goal today. Will start hemodialysis soon. A total of 35 minutes of critical care time was spent in reviewing chart, labs, and images. Discussed with RN and KIRBY. Vitals/I&O Vitals/I&O: Vital Signs Date Time Temp Pulse Resp B/P (MAP) Pulse Ox O2 Delivery O2 Flow Rate FiO2 03/08/21 09:35 92 Ventilator 03/08/21 06:00 80 24 114/65 (81) 03/08/21 04:00 99.9 99.9 03/07/21 08:00 I & O 03/07/21 03/07/21 03/08/21 15:00 23:00 07:00 Intake Total 980 ml 2262.82 ml 1246 ml Output Total 0 ml 10 ml 5 ml Balance 980 ml 2252.82 ml 1241 ml Physical Exam Physical Exam: GENERAL: Intubated and sedated. HEENT: Normocephalic, atraumatic. Anicteric. Neck right IJ HDC clean LUNGS: Rhonchi. HEART: S1, S2. No murmurs. ABDOMEN: Obese, soft. Bowel sounds present. Nontender, nondistended. GENITOURINARY: Kern and fecal tube in place. EXTREMITIES: Edema present no cyanosis. CENTRAL NERVOUS SYSTEM: Intubated. PSYCHIATRIC: Unable to assess. Derm has pressure wounds wound pictures noted in chart. Generalized rash, PICC line , right IJ HDC clean General: No acute distress Heart: Regular rate Abdomen: Normal bowel sounds, Soft, No tenderness Extremities: No clubbing, No cyanosis, Other Skin: No rashes, No significant lesion Labs Labs: Laboratory Tests Test 03/07/21 11:31 03/07/21 17:27 03/07/21 21:24 03/08/21 00:17 Glucose (Fingerstick) 332 mg/dL (70-99) 248 mg/dL (70-99) 178 mg/dL (70-99) 219 mg/dL (70-99) Test 03/08/21 06:41 03/08/21 07:10 03/08/21 08:35 Glucose (Fingerstick) 149 mg/dL (70-99) White Blood Count 12.6 x10^3/uL (4.0-11.0) Red Blood Count 2.71 x10^6/uL (3.50-5.40) Hemoglobin 8.0 g/dL (12.0-15.5) Hematocrit 24.0 % (36.0-47.0) Mean Corpuscular Volume 89 fL (79-100) Mean Corpuscular Hemoglobin 30 pg (25-35) Mean Corpuscular Hemoglobin Concent 33 g/dL (31-37) Red Cell Distribution Width 14.0 % (11.5-14.5) Platelet Count 203 x10^3/uL (140-400) Neutrophils (%) (Auto) 75 % (31-73) Lymphocytes (%) (Auto) 10 % (24-48) Monocytes (%) (Auto) 5 % (0-9) Eosinophils (%) (Auto) 10 % (0-3) Basophils (%) (Auto) 0 % (0-3) Neutrophils # (Auto) 9.4 x10^3/uL (1.8-7.7) Lymphocytes # (Auto) 1.3 x10^3/uL (1.0-4.8) Monocytes # (Auto) 0.6 x10^3/uL (0.0-1.1) Eosinophils # (Auto) 1.2 x10^3/uL (0.0-0.7) Basophils # (Auto) 0.0 x10^3/uL (0.0-0.2) Sodium Level 133 mmol/L (136-145) Potassium Level 4.2 mmol/L (3.5-5.1) Chloride Level 97 mmol/L (98-107) Carbon Dioxide Level 23 mmol/L (21-32) Anion Gap 13 (6-14) Blood Urea Nitrogen 36 mg/dL (7-20) Creatinine 4.1 mg/dL (0.6-1.0) Estimated GFR (Cockcroft-Gault) 11.8 BUN/Creatinine Ratio 9 (6-20) Glucose Level 159 mg/dL (70-99) Calcium Level 7.9 mg/dL (8.5-10.1) Phosphorus Level 5.4 mg/dL (2.6-4.7) Magnesium Level 2.2 mg/dL (1.8-2.4) Total Bilirubin 0.6 mg/dL (0.2-1.0) Aspartate Amino Transf (AST/SGOT) 211 U/L (15-37) Alanine Aminotransferase (ALT/SGPT) 208 U/L (14-59) Alkaline Phosphatase 227 U/L (46-116) Total Protein 6.8 g/dL (6.4-8.2) Albumin 1.1 g/dL (3.4-5.0) Albumin/Globulin Ratio 0.2 (1.0-1.7) O2 Saturation 93 % (92-99) Arterial Blood pH 7.34 (7.35-7.45) Arterial Blood pCO2 at Patient Temp 37 mmHg (35-46) Arterial Blood pO2 at Patient Temp 74 mmHg (75-108) Arterial Blood HCO3 20 mmol/L (21-28) Arterial Blood Base Excess -6 mmol/L (-3-3) FiO2 60 Assessment and Plan Assessmemt and Plan Problems Medical Problems: (1) Ketoacidosis Status: Acute Comment Review of Relevant I have reviewed the following items mazin (where applicable) has been applied. Medications: Current Medications Medications (Trade) Dose Ordered Sig/Pepe Route PRN Reason Start Time Stop Time Status Last Admin Dose Admin Piperacillin Sod/ Tazobactam Sod 2.25 gm/Sodium Chloride 50 ml @ 100 mls/hr Q8HRS IV 03/07/21 14:00 03/08/21 06:26 Lidocaine HCl (Buffered Lidocaine 1%) 6 ml 1X ONCE INJ 03/07/21 13:15 03/07/21 13:16 DC 03/07/21 14:10 Justifications for Admission Other Justification SRIKANTH DAVIS MD Mar 08, 2021 10:56
--- NOTE | 2021-03-08 11:10 | PDOC ---
Renal-Progress Notes Subjective Notes Notes ON THE VENT History of Present Illness Hx of present illness NO ACUTE CHANGES. REMAINS ON THE VENT Vitals Vitals Vital Signs Date Time Temp Pulse Resp B/P (MAP) Pulse Ox O2 Delivery O2 Flow Rate FiO2 03/08/21 10:00 76 24 115/65 (82) 89 Ventilator 03/08/21 08:00 99.7 99.7 03/07/21 08:00 Weight Weight [ ] I.O. Intake and Output Intake and Output 03/08/21 07:00 Intake Total 4488.82 ml Output Total 15 ml Balance 4473.82 ml IV Total 2468.82 ml Tube Feeding 1420 ml Other 600 ml Output Urine Total 15 ml Labs Labs Laboratory Tests Test 03/07/21 11:31 03/07/21 17:27 03/07/21 21:24 03/08/21 00:17 Glucose (Fingerstick) 332 mg/dL (70-99) 248 mg/dL (70-99) 178 mg/dL (70-99) 219 mg/dL (70-99) Test 03/08/21 06:41 03/08/21 07:10 03/08/21 08:35 Glucose (Fingerstick) 149 mg/dL (70-99) White Blood Count 12.6 x10^3/uL (4.0-11.0) Red Blood Count 2.71 x10^6/uL (3.50-5.40) Hemoglobin 8.0 g/dL (12.0-15.5) Hematocrit 24.0 % (36.0-47.0) Mean Corpuscular Volume 89 fL (79-100) Mean Corpuscular Hemoglobin 30 pg (25-35) Mean Corpuscular Hemoglobin Concent 33 g/dL (31-37) Red Cell Distribution Width 14.0 % (11.5-14.5) Platelet Count 203 x10^3/uL (140-400) Neutrophils (%) (Auto) 75 % (31-73) Lymphocytes (%) (Auto) 10 % (24-48) Monocytes (%) (Auto) 5 % (0-9) Eosinophils (%) (Auto) 10 % (0-3) Basophils (%) (Auto) 0 % (0-3) Neutrophils # (Auto) 9.4 x10^3/uL (1.8-7.7) Lymphocytes # (Auto) 1.3 x10^3/uL (1.0-4.8) Monocytes # (Auto) 0.6 x10^3/uL (0.0-1.1) Eosinophils # (Auto) 1.2 x10^3/uL (0.0-0.7) Basophils # (Auto) 0.0 x10^3/uL (0.0-0.2) Sodium Level 133 mmol/L (136-145) Potassium Level 4.2 mmol/L (3.5-5.1) Chloride Level 97 mmol/L (98-107) Carbon Dioxide Level 23 mmol/L (21-32) Anion Gap 13 (6-14) Blood Urea Nitrogen 36 mg/dL (7-20) Creatinine 4.1 mg/dL (0.6-1.0) Estimated GFR (Cockcroft-Gault) 11.8 BUN/Creatinine Ratio 9 (6-20) Glucose Level 159 mg/dL (70-99) Calcium Level 7.9 mg/dL (8.5-10.1) Phosphorus Level 5.4 mg/dL (2.6-4.7) Magnesium Level 2.2 mg/dL (1.8-2.4) Total Bilirubin 0.6 mg/dL (0.2-1.0) Aspartate Amino Transf (AST/SGOT) 211 U/L (15-37) Alanine Aminotransferase (ALT/SGPT) 208 U/L (14-59) Alkaline Phosphatase 227 U/L (46-116) Total Protein 6.8 g/dL (6.4-8.2) Albumin 1.1 g/dL (3.4-5.0) Albumin/Globulin Ratio 0.2 (1.0-1.7) O2 Saturation 93 % (92-99) Arterial Blood pH 7.34 (7.35-7.45) Arterial Blood pCO2 at Patient Temp 37 mmHg (35-46) Arterial Blood pO2 at Patient Temp 74 mmHg (75-108) Arterial Blood HCO3 20 mmol/L (21-28) Arterial Blood Base Excess -6 mmol/L (-3-3) FiO2 60 Micro Micro Microbiology 03/04/21 Gram Stain Evaluation - Final, Complete 03/04/21 Respiratory Culture - Final, Complete 03/04/21 Urine Culture - Final, Complete 03/04/21 Blood Culture - Preliminary, Resulted NO GROWTH AFTER 3 DAYS Physical Exam General Appearance: no apparent distress Skin: warm Respiratory: decreased breath sounds Heart: S1S2 Abdomen: soft, bowel sounds present Extremities: pulses present Neurology: alert Assessment Assessment IMP [id number] HEMATURIA GLUCOSURIA MET AND RESP ACIDOSIS WITH ACIDEMIA COVID 19 PNEUMONIA ACUTE RESP FAILURE DM II HTN OBESITY ANEMIA GENERALIZED EDEMA LEUCOCYTOSIS PLAN HD AGAIN TOMORROW MONITOR FOR RENAL RECOVERY CONTROL BG ANTIBIOTICS ID EVAL AND TX START NEPRO TF WILL AVOID 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
[2021-03-08] MEDS: ENOXAPARIN 30 MG/0.3 ML SYRINGE. SQ SCH (14:19)
[2021-03-08] MEDS: MIDAZOLAM 100mg/100ml NS BAG 100 ML IV PRN (16:00)
--- NOTE | 2021-03-08 16:18 | RAD ---
Examination: Ultrasound bilateral lower extremity venous duplex HISTORY: History of fall, swelling COMPARISON: None available TECHNIQUE: Grayscale, color Doppler 2-D, spectral waveforms of the bilateral upper extremity venous s ystem were performed FINDINGS: The visualized internal jugular veins, subclavian veins, axillary vein, brachial vein, basilic vein, radial, ulnar veins are patent. The superficial veins are not well-visualized due to body habitus Impression: No evidence of deep venous thrombosis bilateral lower extremity venous system. Electronically signed by: Jose Rafael Calderon MD (03/08/2021 4:15 PM) [id number]
[2021-03-08] MEDS: ATORVASTATIN CALCIUM 40 MG TABLET. PO SCH (20:49)
[2021-03-08] MEDS: ACETAMINOPHEN 650 MG/20.3 ML SOLUTION. PEG PRN (21:43)
[2021-03-09] VITALS (42 sets, daily range): BP systolic 69–154; BP diastolic 42–86
[2021-03-09] MEDS: INSULIN LISPRO 300 UNITS/3 ML VIAL. SQ SCH ×4 (00:06→18:00)
[2021-03-09] MEDS: PROPOFOL 100 ML IV PRN ×5 (00:33→19:01)
[2021-03-09] MEDS: MIDAZOLAM 100mg/100ml NS BAG 100 ML IV PRN ×3 (01:38→23:48)
[2021-03-09] MEDS: DEXMEDETOMIDINE 400 MCG in IV NORMAL SALINE 100ML 96 ML IV PRN ×6 (03:12→21:18)
[2021-03-09] MEDS: NOREPINEPHRINE VIAL 8 MG in IV DEXTROSE 5% 250 ML IV PRN ×2 (04:50→23:25)
[2021-03-09] MEDS: PIPERACILLIN/TAZOBACTAM 2.25 GM in IV NORMAL SALINE 50ML 50 ML IV SCH ×3 (05:49→21:18)
[2021-03-09 06:25] LABS: BASO % 0 % (0-3); EOS # 1.1 x10^3/uL (0.0-0.7); EOS % 10 % (0-3); HEMATOCRIT 22.6 % (36.0-47.0); HEMOGLOBIN 7.4 g/dL (12.0-15.5); LYMPH # 1.4 x10^3/uL (1.0-4.8); LYMPH % 12 % (24-48); MEAN CORPUSCULAR HEMOGLOBIN 29 pg (25-35); MEAN CORPUSCULAR HGB CONC 33 g/dL (31-37); MEAN CORPUSCULAR VOLUME 89 fL (79-100); MONO # 0.5 x10^3/uL (0.0-1.1); MONO % 5 % (0-9); NEUT # 8.3 x10^3/uL (1.8-7.7); NEUT % 73 % (31-73); PLATELET COUNT 188 x10^3/uL (140-400); RED BLOOD COUNT 2.53 x10^6/uL (3.50-5.40); RED CELL DISTRIBUTION WIDTH 14.1 % (11.5-14.5); WHITE BLOOD COUNT 11.4 x10^3/uL (4.0-11.0)
[2021-03-09 06:39] LABS: MAGNESIUM 2.2 mg/dL (1.8-2.4); PHOSPHORUS 7.9 mg/dL (2.6-4.7)
[2021-03-09 06:49] LABS: ALBUMIN 1.1 g/dL (3.4-5.0); ALBUMIN/GLOBULIN RATIO 0.2 (1.0-1.7); CALCIUM 7.9 mg/dL (8.5-10.1); CREATININE 5.1 mg/dL (0.6-1.0); GFR 9.1; POTASSIUM 4.9 mmol/L (3.5-5.1); TOTAL BILIRUBIN 0.6 mg/dL (0.2-1.0); TOTAL PROTEIN 6.7 g/dL (6.4-8.2)
[2021-03-09] MEDS: LISINOPRIL 20 MG TABLET PO SCH (09:00)
--- NOTE | 2021-03-09 09:05 | RAD ---
EXAMINATION: NON-TUNNELED CENTRAL VENOUS CATHETER PLACEMENT (with ultrasound guidance). (CPT 39905, [phone]). Site ID: [id number] HISTORY: Renal failure SEDATION: None. CONSENT: Informed consent was obtained. The risks, benefits, potential complications and alternatives were reviewed and all questions answered. ESTIMATED BLOOD LOSS: Less than 20 mL. COMPLICATIONS: None. PROCEDURE: Prior to beginning the procedure, [place] Protocol was used to confirm the patient's identity and p lanned procedure. Maximum sterile barriers including cap, mask, hand hygiene, sterile gloves, steril e gown, large sterile drape and cutaneous antisepsis were used. The skin was sterilely prepped, draped utilizing maximal barrier technique and then infiltrated with lidocaine. The right IJ vein was evaluated by ultrasound. An image of the patent vessel was recorded and saved to PACS. After sterile prep, this vessel was accessed with a micropuncture needle using real-time ul trasound guidance. A guidewire and catheter were then passed. After dilating the tract, a central venous catheter was inserted over a guidewire. The catheter was flushed and secured in place. A sterile dressing was applied. FINDINGS: Ultrasound demonstrates a patent right IJ vein. No immediate complications. IMPRESSION: 1. Successful non-tunneled dialysis catheter placement. 2. Confirmation of good catheter tip position around the cavoatrial junction with a chest x-ray is pe rformed and the catheter can be used. Electronically signed by: Zack Espinosa MD (03/09/2021 9:02 AM) [id number]
[2021-03-09 09:11] LABS: BASE EXCESS ABG -9 mmol/L (-3-3); HCO3 ABG 17 mmol/L (21-28); PCO2 ABG 38 mmHg (35-46); PO2 ABG 92 mmHg (75-108); SAT O2 ABG 95 % (92-99)
[2021-03-09 09:13] LABS: FIO2 ABG 60
[2021-03-09] MEDS: ENOXAPARIN 30 MG/0.3 ML SYRINGE. SQ SCH (09:26)
[2021-03-09] MEDS: FAMOTIDINE 20 MG/2 ML VIAL IVP SCH (09:27)
[2021-03-09] MEDS: INSULIN GLARGINE SYRINGE. SQ SCH ×2 (09:27→21:18)
[2021-03-09] MEDS: LINEZOLID 600 MG TABLET PO SCH ×2 (09:27→21:17)
[2021-03-09] MEDS: FLUCONAZOLE 200MG/100ML PREMIX 100 ML IV SCH (09:28)
[2021-03-09] MEDS: DOCUSATE 100 MG/10 ML SOLUTION. PO SCH ×2 (09:28→21:00)
[2021-03-09] MEDS: NYSTATIN TOPICAL POWDER 15GM BOTTLE. TP SCH ×2 (09:42→21:00)
--- NOTE | 2021-03-09 09:48 | RAD ---
AP chest. HISTORY: Covid positive, on ventilator AP view was taken of the chest. Endotracheal tube is in good position. Right PICC line extends to the right atrium. Dialysis catheter is unchanged. There are diffuse infiltrates with little interval domenico nge. NG tube extends into the stomach. IMPRESSION: 1. Tubes and lines unchanged. 2. Diffuse infiltrates with little change. Electronically signed by: Porter Morales MD (03/09/2021 9:46 AM) [facility]
--- NOTE | 2021-03-09 10:03 | PDOC ---
[facility] [facility] PROGRESS NOTE Date of Service DOS: DATE: 03/09/21 TIME: 09:55 Chief Complaint Chief Complaint Hypotension COVID-19 positive infection Tractable nausea vomiting DKA Combined metabolic and respiratory acidosis Acute electrolyte derangementhyponatremia, hypochloremia due to volume depletion Hyperglycemia uncontrolled BOB due to vasomotor nephropathy Erythrocytosis Reglan for diabetic gastroparesis Candiduria Sacral decubitus ulcer Started on fluconazole today and Zosyn Continue Covid measures Patient intubated Pulmonary following SCD for DVT prophylaxis Protonix GI prophylaxis ADA diet Full code Discussed with RN and SW Disposition inpatient management as above Surrogate decision maker is Brian Whitmore History of Present Illness History of Present Illness 46 year old female who presents with nausea/vomiting since 7 AM yesterday morning. Patient states that her recently tested positive for Covid. She states that he "coughed in my face because he thought it was funny." She reports subjective fevers and chills and nausea/vomiting. Denies sore throat, cough, shortness of breath. No chest pain. Does have some upper abdominal discomfort after vomiting, that she attributes to muscular strain. She is not vaccinated for Covid. 02/08/2021 No acute events overnight. Patient seen and examined bedside and resting comfortably. Continues to complain of nausea not able to tolerate any diet at this time. Saturating 98% on room air. Patient's chart, labs, images were reviewed and discussed with RN 02/09/2021: Afebrile, currently breathing on room air. Still with complaints of nausea and vomiting x3 today. States that she has history of similar symptoms that have been mildly improved with IV Dilaudid. Discussed with patient that I will provide IV Dilaudid to help with her nausea, but she will not discharged on this medication. Will obtain 6-minute walk to evaluate oxygen requirements. Upon discharge, I recommend self quarantine for 10 days for resolution of her symptoms. Discussed with patient that she will discharge tomorrow. 02/10/2021: Patient febrile today with T-max 102.2 F. She still admits to nausea, denies any further vomiting. We will continue to provide supportive care and monitor for any recurrent fevers overnight. Patient continues to improve may discharge tomorrow to continue self-isolation. 02/11/2021: Febrile overnight, T-max 102.3 F. She did become hypoxic overnight, currently breathing on 4 L nasal cannula. Also admits to associated vomiting or diarrhea overnight. Discussed with RN, will initiate remdesivir and closely monitor LFTs. We will also treat with IV Decadron, and prophylactic antibiotics. 02/12/2021: Low-grade fever overnight, T-max 99.7. Currently breathing on room air. Will discontinue remdesivir, steroids, and antibiotics; will observe overnight. Still with complaints of vomiting x1 and diarrhea. We will continue to provide supportive care and hope to discharge in the next day or so. 02/13/2021: Afebrile. Still complains of intermittent diarrhea. At the time of my evaluation she was breathing on 6 L nasal cannula; this is somewhat misleading as patient states that she did not feel short of breath but was placed on 6 L by nursing staff overnight. Will have RN reassess her oxygen requirements as I did anticipate discharging today. 02/14/2021: Afebrile, currently breathing on 8 L nasal cannula. There has been some misleading documentation, chart oxygen this patient is requiring. Discussed with RN, will resume remdesivir to complete total of 5 days. Continue to monitor LFTs. Will add steroids, Rocephin, and azithromycin. Continue supportive care. 02/15/2021: Afebrile. Became much more hypoxic overnight, requiring BiPAP. At the time of my evaluation she is still breathing on BiPAP. Consultation was placed to pulmonology. Had discussion with Dr. Myrick about initiating Tocilizumab, but currently there is 1 more person in the ER that would be more deserving. When stocks are replenished, she will be first inline to receive this medication. She is also first-line to be transferred down to ICU. Critical care time 30 minutes spent reviewing labs, reviewing imaging, discussion with Dr. Myrick, and discussion with RN. 02/16/2021 No acute events overnight. Patient becoming more hypoxic saturating 94% and requiring BiPAP. Patient will be transferred to the ICU at this time. For worsening clinical status. Discussed with pulmonary. Patient's chart, labs, images were reviewed and discussed with RN 02/17/21 Transferred to ICU yesterday afternoon. Seen and examined at bedside she remains on 100% FiO2 on BiPAP. Respirations do appear somewhat labored. Suspect intubation may be impending. We will closely monitor. Increase lisinopril to 20 today. Plan of care discussed with bedside RN. 02/18/21 Patient required intubation yesterday afternoon. Saw and examined this morning. She is intubated and sedated. Increase insulin today. Covid protocol ordered. Wean as tolerated. Plan of care discussed with bedside nurse. 02/19/21 Bedside. She remains intubated and sedated. Continue Covid protocol. Wean ox ygen sedation as tolerated. Pulmonary following. Plan of care discussed with bedside RN. 02/20/21 Patient seen and examined at bedside. She remains intubated and sedated. No major clinical changes. Continue current treatment. Pulmonary following. Plan of care discussed with bedside RN. 02/21/21 Patient seen and examined at bedside. Remains intubated and sedated date and admission clinical changes. Increase free water flushes today due to hypernatremia. Plan of care discussed with bedside nurse. 02/22/21 Patient seen and examined at bedside. O2 requirement actually improving, although remains intubated. Possible SBT in the coming days. Hypernatremia improving. Plan of care discussed bedside RN. 02/23/2021: Patient remains in ICU on ventilator with FiO2 100%, PEEP 7. Repeat chest x-ray yesterday showed diffuse bilateral pulmonary opacities with no interval improvement. Will discontinue Rocephin and initiate Zosyn. We will continue IV steroids for a full 10-day course (to be completed 02/25/2021). Completed remdesivir. Continue supportive care. Critical care time 30 minutes spent reviewing charts, reviewing imaging, reviewing labs, discussion with RN. 02/24/2021: Afebrile. On vent with FiO2 40%, PEEP 6. Her Coreg has been held due to persistent bradycardia. No documented history of systolic heart failure or previous echocardiogram. Will need to obtain echocardiogram prior to discharge. Continue IV steroids and antibiotics. 02/25/2021: Afebrile. Remains ventilated with FiO2 45%, PEEP 6. Chest x-ray today showed slight improvement of the pulmonary infiltrates, no pneumothorax. Completed 10-day course of IV Decadron. Will initiate slow Solu-Medrol taper. Continue IV Zosyn. Continue supportive care. Will need echocardiogram prior to discharge to evaluate heart failure. Critical care time 30 minutes spent reviewing charts, reviewing imaging, reviewing labs, discussion with RN. 02/26/2021: Afebrile. On vent with FiO2 45%, PEEP 6. Completed 10 days of IV Decadron. Will continue IV Zosyn. Continue supportive care. Critical care time 30 minutes spent reviewing charts, reviewing imaging, reviewing labs, discussion with RN. 02/27/2021: Afebrile. On vent with FiO2 45%, PEEP 6. Completed 10 days of steroids and completed remdesivir. Continue with IV Zosyn. CPAP trial yesterday. Continue NG tube and supportive care. Critical care time 30 minutes spent reviewing charts, reviewing imaging, reviewing labs, discussion with RN. 02/28/2021:. Patient remains on vent with FiO2 40%, PEEP 5. Afebrile. Completed steroids and remdesivir. Some noted hypoglycemia overnight, will de- escalate basal insulin. Continue IV Zosyn. Ventilator management per pulmonology. Continue NG tube and supportive care. Critical care time 30 minutes spent reviewing charts, reviewing imaging, reviewing labs, discussion with RN. 03/01/2021: On vent with FiO2 40%, PEEP 5. Afebrile. Completed steroids and remdesivir. Blood glucose well controlled. Continue empiric antibiotics with Zosyn. Ventilator management per pulmonology. Continue NG tube and supportive care. Critical care time 30 minutes spent reviewing charts, reviewing imaging, reviewing labs, discussion with RN. 03/02/2021 No acute events overnight. Patient hypotensive the morning due to oversedation. Will wean off sedation and keep antihypertensive medications on board. Currently saturating 100% on vent settings of 18/450/40/5. Will attempt spontaneous breathing trial today to see how patient does. Defer this management to pulmonary. Patient's chart, labs, images were reviewed and discussed with RN A total of 36 minutes of critical care time was spent in reviewing chart, labs, and images. Discussed with RN and KIRBY. 03/03/2021 No acute events overnight. Patient saturating 98% on vent settings of 18/450/40/5. Will defer spontaneous breathing trials to pulmonary at this time. Patient's chart, labs, images were reviewed and discussed with RN A total of 37 minutes of critical care time was spent in reviewing chart, labs, and images. Discussed with RN and KIRBY. 03/04/2021 No acute events overnight. Patient saturating 9 9% on vent settings of 18/450/30/5. Patient currently is unable to tolerate weaning. Per pulmonary. Patient's chart, labs, images were reviewed and discussed with RN A total of 34 minutes of critical care time was spent in reviewing chart, labs, and images. Discussed with RN and KIRBY. 03/05/2021 No acute events overnight. Patient is saturating 97% on vent settings of 18/450/55/5. Her FiO2 needs to be increased due to abnormal ABG with 7.3 /5 03/03. Patient's chart, labs, images were reviewed and discussed with RN A total of 35 minutes of critical care time was spent in reviewing chart, labs, and images. Discussed with RN and KIRBY. 03/06/2021 No acute events overnight. Patient saturating 94% on vent settings of 18/450/55/5. Chest x-ray showing increase in pulmonary infiltrates. Wound care is consulted for decubitus ulcer patient's chart, labs, images were reviewed and discussed with RN A total of 35 minutes of critical care time was spent in reviewing chart, labs, and images. Discussed with RN and KIRBY. 03/07/2021 No acute events overnight. Patient saturating 94% on vent settings of 20/450/70/8. Patient now heading into renal failure with her creatinine bumped up from 1.5-4.2. Decreased urine output. Plan for hemodialysis today and temporary catheter placement and nephrology is consulted. A total of 34 minutes of critical care time was spent in reviewing chart, labs, and images. Discussed with RN and KIRBY. 03/08/2021 No acute events overnight. Patient did have a nausea vomiting episode and tube feeds were held. KUB repeat shows NG tube still in the stomach. Will resume tube feeds at trickle and advance to goal today. Will start hemodialysis soon. A total of 35 minutes of critical care time was spent in reviewing chart, labs, and images. Discussed with RN and KIRBY. 03/09: Seen on vent 20/450/60%/8. ABG 7.2 WBC 11.4, Hb 7.4, platelets 188, NA 131, K4.9, BUN 48, CR 51, glucose 199, phosphorus 7.9, mag 2.2, AST 265 ALT 219, albumin 1.1. Chest radiograph appears unchanged from prior. CC time 34 minutes Vitals/I&O Vitals/I&O: Vital Signs Date Time Temp Pulse Resp B/P (MAP) Pulse Ox O2 Delivery O2 Flow Rate FiO2 03/09/21 08:52 99 Ventilator 03/09/21 07:00 68 24 146/82 (103) 03/09/21 04:00 98.9 98.9 I & O 03/08/21 03/08/21 03/09/21 15:00 23:00 07:00 Intake Total 455 ml 1337.00 ml 1842 ml Output Total 5 ml 10 ml 1355 ml Balance 450 ml 1327.00 ml 487 ml Physical Exam Physical Exam: GENERAL: Intubated and sedated. HEENT: Normocephalic, atraumatic. Anicteric. Neck right IJ HDC clean LUNGS: Rhonchi. HEART: S1, S2. No murmurs. ABDOMEN: Obese, soft. Bowel sounds present. Nontender, nondistended. GENITOURINARY: Kern and fecal tube in place. EXTREMITIES: Edema present no cyanosis. CENTRAL NERVOUS SYSTEM: Intubated. PSYCHIATRIC: Unable to assess. Derm has pressure wounds wound pictures noted in chart. Generalized rash, PICC line , right IJ HDC clean General: No acute distress Heart: Regular rate Abdomen: Normal bowel sounds, Soft, No tenderness Extremities: No clubbing, No cyanosis, Other Skin: No rashes, No significant lesion Labs Labs: Laboratory Tests Test 03/08/21 11:54 03/08/21 17:45 03/08/21 21:27 03/09/21 00:05 Glucose (Fingerstick) 134 mg/dL (70-99) 125 mg/dL (70-99) 121 mg/dL (70-99) 199 mg/dL (70-99) Test 03/09/21 06:00 03/09/21 09:05 White Blood Count 11.4 x10^3/uL (4.0-11.0) Red Blood Count 2.53 x10^6/uL (3.50-5.40) Hemoglobin 7.4 g/dL (12.0-15.5) Hematocrit 22.6 % (36.0-47.0) Mean Corpuscular Volume 89 fL (79-100) Mean Corpuscular Hemoglobin 29 pg (25-35) Mean Corpuscular Hemoglobin Concent 33 g/dL (31-37) Red Cell Distribution Width 14.1 % (11.5-14.5) Platelet Count 188 x10^3/uL (140-400) Neutrophils (%) (Auto) 73 % (31-73) Lymphocytes (%) (Auto) 12 % (24-48) Monocytes (%) (Auto) 5 % (0-9) Eosinophils (%) (Auto) 10 % (0-3) Basophils (%) (Auto) 0 % (0-3) Neutrophils # (Auto) 8.3 x10^3/uL (1.8-7.7) Lymphocytes # (Auto) 1.4 x10^3/uL (1.0-4.8) Monocytes # (Auto) 0.5 x10^3/uL (0.0-1.1) Eosinophils # (Auto) 1.1 x10^3/uL (0.0-0.7) Basophils # (Auto) 0.0 x10^3/uL (0.0-0.2) Sodium Level 131 mmol/L (136-145) Potassium Level 4.9 mmol/L (3.5-5.1) Chloride Level 96 mmol/L (98-107) Carbon Dioxide Level 20 mmol/L (21-32) Anion Gap 15 (6-14) Blood Urea Nitrogen 48 mg/dL (7-20) Creatinine 5.1 mg/dL (0.6-1.0) Estimated GFR (Cockcroft-Gault) 9.1 BUN/Creatinine Ratio 9 (6-20) Glucose Level 199 mg/dL (70-99) Glucose (Fingerstick) 174 mg/dL (70-99) Calcium Level 7.9 mg/dL (8.5-10.1) Phosphorus Level 7.9 mg/dL (2.6-4.7) Magnesium Level 2.2 mg/dL (1.8-2.4) Total Bilirubin 0.6 mg/dL (0.2-1.0) Aspartate Amino Transf (AST/SGOT) 265 U/L (15-37) Alanine Aminotransferase (ALT/SGPT) 219 U/L (14-59) Alkaline Phosphatase 281 U/L (46-116) Total Protein 6.7 g/dL (6.4-8.2) Albumin 1.1 g/dL (3.4-5.0) Albumin/Globulin Ratio 0.2 (1.0-1.7) O2 Saturation 95 % (92-99) Arterial Blood pH 7.28 (7.35-7.45) Arterial Blood pCO2 at Patient Temp 38 mmHg (35-46) Arterial Blood pO2 at Patient Temp 92 mmHg (75-108) Arterial Blood HCO3 17 mmol/L (21-28) Arterial Blood Base Excess -9 mmol/L (-3-3) FiO2 60 Assessment and Plan Assessmemt and Plan Problems Medical Problems: (1) Ketoacidosis Status: Acute Comment Review of Relevant I have reviewed the following items mazin (where applicable) has been applied. Justifications for Admission Other Justification LEO GROSS MD Mar 09, 2021 10:03
--- NOTE | 2021-03-09 10:10 | PDOC ---
DATE OF SERVICE DATE: 03/09/21 TIME: 10:00 SUBJECTIVE ROS Intubated on MV OBJECTIVE Vital Signs Vital Signs Date Time Temp Pulse Resp B/P (MAP) Pulse Ox O2 Delivery O2 Flow Rate FiO2 03/09/21 08:52 99 Ventilator 03/09/21 07:00 68 24 146/82 (103) 03/09/21 04:00 98.9 98.9 I & 0 Intake and Output 03/09/21 07:00 Intake Total 3634.00 ml Output Total 1370 ml Balance 2264.00 ml IV Total 1905.00 ml Tube Feeding 1459 ml Other 270 ml Output Urine Total 20 ml Stool Total 1350 ml Gastric Drainage Total 0 ml PHYSICAL EXAM Physical Exam GENERAL: Intubated and sedated. HEENT: Anicteric. Neck right IJ HDC LUNGS: decreased at bases HEART: S1, S2. No murmurs. ABDOMEN: Obese, soft. Bowel sounds present. GENITOURINARY: Kern and rectal tube in place. EXTREMITIES: Edema present no cyanosis. CENTRAL NERVOUS SYSTEM: Intubated. PSYCHIATRIC: Unable to assess. Derm has pressure wounds wound DIAGNOSIS/ASSESSMENT Assessment & Plan BOB-ATN- anuric , requiring dialysis. Dialyzed yesterday . Dialysis again today , discussed treatment plan with Rene. Supportive care, I/O, avoid nephrotoxins, Monitor for recovery Hematuria - ? Kern sample DM 2 - Glucosuria + POA Metab and Resp Acidosis COVID 19 Pneumonia - Unvaccinated Acute Resp Failure- Intubated Diffuse infiltrates with little change. HTN BP stable Anemia -avoid DOYLE 2/2 to Thrombogenic state Critically ill time spent >45 mins COMMENT/RELEVANT DATA Meds Current Medications Medications (Trade) Dose Ordered Sig/Pepe Start Time Stop Time Status Last Admin Dose Admin Acetaminophen (Tylenol Supp) 650 mg PRN Q6HRS PRN 02/08/21 01:45 02/17/21 10:45 DC Acetaminophen (Tylenol) 650 mg PRN Q6HRS PRN 02/17/21 10:45 03/08/21 21:43 650 MG Alteplase, Recombinant (Cathflo For Central Catheter Clearance) 1 mg 1X ONCE 02/27/21 14:30 02/27/21 14:36 DC 02/27/21 15:19 1 MG Alteplase, Recombinant (Cathflo) 2 mg 1X ONCE 02/27/21 11:00 8/20/21 11:01 DC 02/27/21 11:20 2 MG Amlodipine Besylate (Norvasc) 5 mg DAILY 02/24/21 09:00 02/27/21 09:10 5 MG Atorvastatin Calcium (Lipitor) 40 mg HS 02/08/21 21:00 03/08/21 20:49 40 MG Atropine Sulfate (ATROPINE 0.5mg SYRINGE) 0.5 mg PRN Q5MIN PRN 02/16/21 12:00 Azithromycin 250 mg/Sodium Chloride 250 ml @ 250 mls/hr Q24H 02/14/21 13:30 02/18/21 14:29 DC 02/18/21 11:51 250 MLS/HR Benzonatate (Tessalon Perle) 100 mg [id number] 02/10/21 23:30 02/17/21 10:45 DC 02/16/21 22:07 100 MG Carvedilol (Coreg) 6.25 mg [id number] 02/08/21 20:30 02/23/21 15:50 DC 02/23/21 08:06 6.25 MG Ceftriaxone Sodium (Rocephin) 1 gm Q24H 02/14/21 13:00 02/23/21 07:34 DC 02/22/21 12:42 1 GM Dexamethasone Sodium Phosphate (Decadron) 2 mg 1X ONCE 02/27/21 09:00 02/26/21 07:15 DC Dexmedetomidine HCl 400 mcg/ Sodium Chloride 100 ml @ 0 mls/hr CONT PRN 02/27/21 09:45 03/09/21 09:29 26 MLS/HR Dextrose (Dextrose 50%-Water Syringe) 12.5 gm PRN Q15MIN PRN 03/01/21 13:00 03/01/21 12:55 12.5 GM Docusate Sodium (Colace Solution) 100 mg BID 02/23/21 12:00 03/09/21 09:28 100 MG Docusate Sodium (Colace) 100 mg PRN DAILY PRN 02/07/21 08:45 02/23/21 10:47 DC Enalaprilat (Vasotec Inj) 0.625 mg Q6HRS 02/08/21 16:15 02/09/21 16:01 DC 02/09/21 13:42 0.625 MG Enoxaparin Sodium (Lovenox 30mg Syringe) 30 mg Q24H 03/08/21 09:00 03/09/21 09:26 30 MG Enoxaparin Sodium (Lovenox 40mg Syringe) 40 mg BID 02/09/21 09:00 03/08/21 13:56 DC 03/08/21 08:26 40 MG Enoxaparin Sodium (Lovenox Per Pharmacy Prophylaxis Dosing) 1 each PRN DAILY PRN 02/09/21 06:45 Famotidine (Pepcid Vial) 20 mg BID 02/16/21 21:00 03/09/21 09:27 20 MG Fentanyl Citrate 30 ml @ 0 mls/hr CONT PRN 02/17/21 10:00 03/09/21 01:37 3.75 MLS/HR Fluconazole/ Sodium Chloride 100 ml @ 100 mls/hr Q24H 03/07/21 09:00 03/09/21 09:28 100 MLS/HR Furosemide (Lasix) 20 mg 1X ONCE 02/16/21 22:15 02/16/21 22:16 DC 02/16/21 22:18 20 MG Glycerin/ Hypromellose/ Polyethylene (Artificial Tears) 1 drop PRN Q1HR PRN 02/17/21 10:00 Guaifenesin (Robitussin Dm) 10 ml PRN Q6HRS PRN 02/10/21 23:30 02/16/21 09:06 10 ML Haloperidol Lactate (Haldol Inj) 2.5 mg 1X ONCE 02/07/21 02:30 02/07/21 03:56 DC Hydralazine HCl (Apresoline Inj) 10 mg PRN Q4HRS PRN 02/11/21 12:15 02/26/21 11:23 10 MG Hydromorphone HCl (Dilaudid) 2 mg PRN Q6HRS PRN 02/09/21 17:15 02/21/21 05:27 DC 02/15/21 22:00 2 MG Info (PHARMACY MONITORING -- do not chart) 1 each PRN DAILY PRN 03/07/21 20:45 Insulin Glargine (Lantus Syringe) 5 unit BID 03/06/21 09:00 03/09/21 09:27 5 UNIT Insulin Human Lispro (HumaLOG) 12 units Q6HRS 02/20/21 12:00 02/28/21 15:38 DC 02/27/21 05:41 12 UNITS Insulin Human Regular 100 ml @ 10 mls/hr 1X ONCE 02/07/21 06:30 02/07/21 16:54 DC 02/07/21 09:31 6.5 MLS/HR Insulin Human Regular 100 unit/ Sodium Chloride 101 ml @ 0 mls/hr CONT PRN PRN 02/07/21 06:00 02/07/21 16:54 DC Labetalol HCl (Normodyne Iv Push) 10 mg PRN Q2HR PRN 02/08/21 00:45 02/17/21 07:19 10 MG Lactobacillus Rhamnosus (Culturelle) 1 cap BID 02/16/21 21:00 02/17/21 10:45 DC 02/16/21 22:02 1 CAP Lidocaine HCl (Buffered Lidocaine 1%) 3 ml STK-MED ONCE 03/07/21 13:25 03/07/21 13:25 DC Linezolid (Zyvox) 600 mg BID 03/05/21 09:00 03/09/21 09:27 600 MG Lisinopril (Prinivil) 20 mg DAILY 02/17/21 09:00 02/27/21 09:10 20 MG Lorazepam (Ativan Inj) 0.5 mg PRN Q6HRS PRN 02/08/21 10:00 02/16/21 22:07 0.5 MG Methylprednisolone Sodium Succinate (SOLU-Medrol 125MG VIAL) 80 mg Q8HRS 02/25/21 09:00 02/26/21 07:09 DC 02/26/21 05:52 80 MG Metoclopramide HCl (Reglan Vial) 10 mg PRN Q6HRS PRN 02/08/21 00:45 02/12/21 15:51 10 MG Midazolam HCl 100 ml @ 0 mls/hr CONT PRN 02/17/21 10:00 03/09/21 01:38 10 MLS/HR Norepinephrine Bitartrate 8 mg/ Dextrose 258 ml @ 21.711 mls/ hr CONT PRN 03/06/21 13:45 03/09/21 04:50 15.197 MLS/HR Nystatin (Nystop) 1 reji BID 03/02/21 21:00 03/09/21 09:42 1 REJI Ondansetron HCl (Zofran Odt) 4 mg 1X ONCE 02/06/21 23:30 02/06/21 23:31 DC 02/06/21 23:57 4 MG Ondansetron HCl (Zofran) 4 mg 1X ONCE 02/07/21 20:00 02/07/21 20:07 DC 02/07/21 20:06 4 MG Piperacillin Sod/ Tazobactam Sod (Zosyn Per Pharmacy) 1 each PRN DAILY PRN 02/23/21 07:45 Piperacillin Sod/ Tazobactam Sod 2.25 gm/Sodium Chloride 50 ml @ 100 mls/hr Q8HRS 03/07/21 14:00 03/09/21 05:49 100 MLS/HR Piperacillin Sod/ Tazobactam Sod 4.5 gm/Sodium Chloride 100 ml @ 200 mls/hr Q6HRS 02/23/21 08:00 03/07/21 08:18 DC 03/07/21 06:12 200 MLS/HR Potassium Chloride/Water 100 ml @ 100 mls/hr PRN Q1HR PRN 02/07/21 06:00 02/07/21 16:54 DC Potassium Chloride (Klor-Con) 40 meq 1X ONCE 02/13/21 12:00 02/13/21 12:01 DC 02/13/21 13:21 40 MEQ Prochlorperazine Edisylate (Compazine) 10 mg PRN Q6HRS PRN 02/07/21 08:45 02/12/21 10:35 10 MG Propofol 100 ml @ 0 mls/hr CONT PRN 02/17/21 10:00 03/09/21 09:29 18.7 MLS/HR Remdesivir 100 mg/ Sodium Chloride 230 ml @ 460 mls/hr Q24H 02/15/21 12:00 02/18/21 12:29 DC 02/18/21 11:52 460 MLS/HR Remdesivir 200 mg/ Sodium Chloride 210 ml @ 210 mls/hr 1X ONCE 02/11/21 13:00 02/12/21 11:55 DC 02/11/21 14:33 210 MLS/HR Sennosides (Senna) 17.2 mg PRN BID PRN 02/07/21 08:45 02/22/21 08:29 17.2 MG Sodium Chloride 1,000 ml @ 1,000 mls/hr 1X ONCE 03/06/21 19:15 03/06/21 20:14 DC 03/06/21 20:37 1,000 MLS/HR Succinylcholine Chloride (Anectine) 200 mg STK-MED ONCE 02/17/21 10:00 02/25/21 08:40 DC Vancomycin HCl (Vanco Per Pharmacy) 1 each PRN DAILY PRN 03/04/21 18:30 03/05/21 08:59 DC 03/04/21 19:47 1 EACH Vancomycin HCl (Vancomycin Trough Level) 1 each 1X ONCE 03/06/21 07:00 03/06/21 07:01 Cancel Vancomycin HCl 1.5 gm/Sodium Chloride 500 ml @ 250 mls/hr Q12H 03/05/21 07:30 03/05/21 08:58 DC Vancomycin HCl 1 gm/Sodium Chloride 250 ml @ 250 mls/hr Q12H 03/04/21 20:00 UNV Vancomycin HCl 2 gm/Sodium Chloride 500 ml @ 250 mls/hr 1X ONCE 03/04/21 19:00 03/04/21 20:59 DC 03/04/21 19:26 250 MLS/HR Vecuronium [place] (Norcuron Bolus) 6 mg PRN Q2HRS PRN 03/06/21 14:30 03/07/21 13:53 6 MG Lab Laboratory Tests Test 03/08/21 11:54 03/08/21 17:45 03/08/21 21:27 03/09/21 00:05 Glucose (Fingerstick) 134 mg/dL (70-99) 125 mg/dL (70-99) 121 mg/dL (70-99) 199 mg/dL (70-99) Test 03/09/21 06:00 03/09/21 09:05 White Blood Count 11.4 x10^3/uL (4.0-11.0) Red Blood Count 2.53 x10^6/uL (3.50-5.40) Hemoglobin 7.4 g/dL (12.0-15.5) Hematocrit 22.6 % (36.0-47.0) Mean Corpuscular Volume 89 fL (79-100) Mean Corpuscular Hemoglobin 29 pg (25-35) Mean Corpuscular Hemoglobin Concent 33 g/dL (31-37) Red Cell Distribution Width 14.1 % (11.5-14.5) Platelet Count 188 x10^3/uL (140-400) Neutrophils (%) (Auto) 73 % (31-73) Lymphocytes (%) (Auto) 12 % (24-48) Monocytes (%) (Auto) 5 % (0-9) Eosinophils (%) (Auto) 10 % (0-3) Basophils (%) (Auto) 0 % (0-3) Neutrophils # (Auto) 8.3 x10^3/uL (1.8-7.7) Lymphocytes # (Auto) 1.4 x10^3/uL (1.0-4.8) Monocytes # (Auto) 0.5 x10^3/uL (0.0-1.1) Eosinophils # (Auto) 1.1 x10^3/uL (0.0-0.7) Basophils # (Auto) 0.0 x10^3/uL (0.0-0.2) Sodium Level 131 mmol/L (136-145) Potassium Level 4.9 mmol/L (3.5-5.1) Chloride Level 96 mmol/L (98-107) Carbon Dioxide Level 20 mmol/L (21-32) Anion Gap 15 (6-14) Blood Urea Nitrogen 48 mg/dL (7-20) Creatinine 5.1 mg/dL (0.6-1.0) Estimated GFR (Cockcroft-Gault) 9.1 BUN/Creatinine Ratio 9 (6-20) Glucose Level 199 mg/dL (70-99) Glucose (Fingerstick) 174 mg/dL (70-99) Calcium Level 7.9 mg/dL (8.5-10.1) Phosphorus Level 7.9 mg/dL (2.6-4.7) Magnesium Level 2.2 mg/dL (1.8-2.4) Total Bilirubin 0.6 mg/dL (0.2-1.0) Aspartate Amino Transf (AST/SGOT) 265 U/L (15-37) Alanine Aminotransferase (ALT/SGPT) 219 U/L (14-59) Alkaline Phosphatase 281 U/L (46-116) Total Protein 6.7 g/dL (6.4-8.2) Albumin 1.1 g/dL (3.4-5.0) Albumin/Globulin Ratio 0.2 (1.0-1.7) O2 Saturation 95 % (92-99) Arterial Blood pH 7.28 (7.35-7.45) Arterial Blood pCO2 at Patient Temp 38 mmHg (35-46) Arterial Blood pO2 at Patient Temp 92 mmHg (75-108) Arterial Blood HCO3 17 mmol/L (21-28) Arterial Blood Base Excess -9 mmol/L (-3-3) FiO2 60 Results All relevant outside records, renal labs, imaging studies, telemetry/EKG's were reviewed. Justicifation of Admission Dx: Justifications for Admission: Justification of Admission Dx: N/A GIGI CARMEN MD Mar 09, 2021 10:10
[2021-03-09 10:16] LABS: % BANDS 3 % (0-9); % EOS 11 % (0-5); % LYMPHS 17 % (24-48); % SEGS 69 % (35-66); PLT ESTIMATE ADEQUATE (ADEQUATE)
--- NOTE | 2021-03-09 10:24 | PDOC ---
PULMONARY PROGRESS NOTES DATE: 03/09/21 TIME: 10:19 Subjective Patient remains on vent support Patient had dialysis this Tuesday Oxygen requirement has increased to 60% peep 8 sedated on prop versed precedex vec prn levo low dose Vitals Vital Signs Date Time Temp Pulse Resp B/P (MAP) Pulse Ox O2 Delivery O2 Flow Rate FiO2 03/09/21 08:52 99 Ventilator 03/09/21 07:00 68 24 146/82 (103) 03/09/21 04:00 98.9 98.9 Comments Visual exam done due to COVID-19. intubated NC AT RRR no accessory muscle use abd obese No skin rash or leg edema. Labs Laboratory Tests Test 03/07/21 11:31 03/07/21 17:27 03/07/21 21:24 03/08/21 00:17 Glucose (Fingerstick) 332 mg/dL (70-99) 248 mg/dL (70-99) 178 mg/dL (70-99) 219 mg/dL (70-99) Test 03/08/21 06:41 03/08/21 07:10 03/08/21 08:35 03/08/21 11:54 Glucose (Fingerstick) 149 mg/dL (70-99) 134 mg/dL (70-99) White Blood Count 12.6 x10^3/uL (4.0-11.0) Red Blood Count 2.71 x10^6/uL (3.50-5.40) Hemoglobin 8.0 g/dL (12.0-15.5) Hematocrit 24.0 % (36.0-47.0) Mean Corpuscular Volume 89 fL (79-100) Mean Corpuscular Hemoglobin 30 pg (25-35) Mean Corpuscular Hemoglobin Concent 33 g/dL (31-37) Red Cell Distribution Width 14.0 % (11.5-14.5) Platelet Count 203 x10^3/uL (140-400) Neutrophils (%) (Auto) 75 % (31-73) Lymphocytes (%) (Auto) 10 % (24-48) Monocytes (%) (Auto) 5 % (0-9) Eosinophils (%) (Auto) 10 % (0-3) Basophils (%) (Auto) 0 % (0-3) Neutrophils # (Auto) 9.4 x10^3/uL (1.8-7.7) Lymphocytes # (Auto) 1.3 x10^3/uL (1.0-4.8) Monocytes # (Auto) 0.6 x10^3/uL (0.0-1.1) Eosinophils # (Auto) 1.2 x10^3/uL (0.0-0.7) Basophils # (Auto) 0.0 x10^3/uL (0.0-0.2) Sodium Level 133 mmol/L (136-145) Potassium Level 4.2 mmol/L (3.5-5.1) Chloride Level 97 mmol/L (98-107) Carbon Dioxide Level 23 mmol/L (21-32) Anion Gap 13 (6-14) Blood Urea Nitrogen 36 mg/dL (7-20) Creatinine 4.1 mg/dL (0.6-1.0) Estimated GFR (Cockcroft-Gault) 11.8 BUN/Creatinine Ratio 9 (6-20) Glucose Level 159 mg/dL (70-99) Calcium Level 7.9 mg/dL (8.5-10.1) Phosphorus Level 5.4 mg/dL (2.6-4.7) Magnesium Level 2.2 mg/dL (1.8-2.4) Total Bilirubin 0.6 mg/dL (0.2-1.0) Aspartate Amino Transf (AST/SGOT) 211 U/L (15-37) Alanine Aminotransferase (ALT/SGPT) 208 U/L (14-59) Alkaline Phosphatase 227 U/L (46-116) Total Protein 6.8 g/dL (6.4-8.2) Albumin 1.1 g/dL (3.4-5.0) Albumin/Globulin Ratio 0.2 (1.0-1.7) O2 Saturation 93 % (92-99) Arterial Blood pH 7.34 (7.35-7.45) Arterial Blood pCO2 at Patient Temp 37 mmHg (35-46) Arterial Blood pO2 at Patient Temp 74 mmHg (75-108) Arterial Blood HCO3 20 mmol/L (21-28) Arterial Blood Base Excess -6 mmol/L (-3-3) FiO2 60 Test 03/08/21 17:45 03/08/21 21:27 03/09/21 00:05 03/09/21 06:00 Glucose (Fingerstick) 125 mg/dL (70-99) 121 mg/dL (70-99) 199 mg/dL (70-99) 174 mg/dL (70-99) White Blood Count 11.4 x10^3/uL (4.0-11.0) Red Blood Count 2.53 x10^6/uL (3.50-5.40) Hemoglobin 7.4 g/dL (12.0-15.5) Hematocrit 22.6 % (36.0-47.0) Mean Corpuscular Volume 89 fL (79-100) Mean Corpuscular Hemoglobin 29 pg (25-35) Mean Corpuscular Hemoglobin Concent 33 g/dL (31-37) Red Cell Distribution Width 14.1 % (11.5-14.5) Platelet Count 188 x10^3/uL (140-400) Neutrophils (%) (Auto) 73 % (31-73) Lymphocytes (%) (Auto) 12 % (24-48) Monocytes (%) (Auto) 5 % (0-9) Eosinophils (%) (Auto) 10 % (0-3) Basophils (%) (Auto) 0 % (0-3) Neutrophils # (Auto) 8.3 x10^3/uL (1.8-7.7) Lymphocytes # (Auto) 1.4 x10^3/uL (1.0-4.8) Monocytes # (Auto) 0.5 x10^3/uL (0.0-1.1) Eosinophils # (Auto) 1.1 x10^3/uL (0.0-0.7) Basophils # (Auto) 0.0 x10^3/uL (0.0-0.2) Segmented Neutrophils % 69 % (35-66) Band Neutrophils % 3 % (0-9) Lymphocytes % 17 % (24-48) Eosinophils % 11 % (0-5) Platelet Estimate Adequate (ADEQUATE) Sodium Level 131 mmol/L (136-145) Potassium Level 4.9 mmol/L (3.5-5.1) Chloride Level 96 mmol/L (98-107) Carbon Dioxide Level 20 mmol/L (21-32) Anion Gap 15 (6-14) Blood Urea Nitrogen 48 mg/dL (7-20) Creatinine 5.1 mg/dL (0.6-1.0) Estimated GFR (Cockcroft-Gault) 9.1 BUN/Creatinine Ratio 9 (6-20) Glucose Level 199 mg/dL (70-99) Calcium Level 7.9 mg/dL (8.5-10.1) Phosphorus Level 7.9 mg/dL (2.6-4.7) Magnesium Level 2.2 mg/dL (1.8-2.4) Total Bilirubin 0.6 mg/dL (0.2-1.0) Aspartate Amino Transf (AST/SGOT) 265 U/L (15-37) Alanine Aminotransferase (ALT/SGPT) 219 U/L (14-59) Alkaline Phosphatase 281 U/L (46-116) Total Protein 6.7 g/dL (6.4-8.2) Albumin 1.1 g/dL (3.4-5.0) Albumin/Globulin Ratio 0.2 (1.0-1.7) Test 03/09/21 09:05 O2 Saturation 95 % (92-99) Arterial Blood pH 7.28 (7.35-7.45) Arterial Blood pCO2 at Patient Temp 38 mmHg (35-46) Arterial Blood pO2 at Patient Temp 92 mmHg (75-108) Arterial Blood HCO3 17 mmol/L (21-28) Arterial Blood Base Excess -9 mmol/L (-3-3) FiO2 60 Laboratory Tests Test 03/08/21 11:54 03/08/21 17:45 03/08/21 21:27 03/09/21 00:05 Glucose (Fingerstick) 134 mg/dL (70-99) 125 mg/dL (70-99) 121 mg/dL (70-99) 199 mg/dL (70-99) Test 03/09/21 06:00 03/09/21 09:05 White Blood Count 11.4 x10^3/uL (4.0-11.0) Red Blood Count 2.53 x10^6/uL (3.50-5.40) Hemoglobin 7.4 g/dL (12.0-15.5) Hematocrit 22.6 % (36.0-47.0) Mean Corpuscular Volume 89 fL (79-100) Mean Corpuscular Hemoglobin 29 pg (25-35) Mean Corpuscular Hemoglobin Concent 33 g/dL (31-37) Red Cell Distribution Width 14.1 % (11.5-14.5) Platelet Count 188 x10^3/uL (140-400) Neutrophils (%) (Auto) 73 % (31-73) Lymphocytes (%) (Auto) 12 % (24-48) Monocytes (%) (Auto) 5 % (0-9) Eosinophils (%) (Auto) 10 % (0-3) Basophils (%) (Auto) 0 % (0-3) Neutrophils # (Auto) 8.3 x10^3/uL (1.8-7.7) Lymphocytes # (Auto) 1.4 x10^3/uL (1.0-4.8) Monocytes # (Auto) 0.5 x10^3/uL (0.0-1.1) Eosinophils # (Auto) 1.1 x10^3/uL (0.0-0.7) Basophils # (Auto) 0.0 x10^3/uL (0.0-0.2) Segmented Neutrophils % 69 % (35-66) Band Neutrophils % 3 % (0-9) Lymphocytes % 17 % (24-48) Eosinophils % 11 % (0-5) Platelet Estimate Adequate (ADEQUATE) Sodium Level 131 mmol/L (136-145) Potassium Level 4.9 mmol/L (3.5-5.1) Chloride Level 96 mmol/L (98-107) Carbon Dioxide Level 20 mmol/L (21-32) Anion Gap 15 (6-14) Blood Urea Nitrogen 48 mg/dL (7-20) Creatinine 5.1 mg/dL (0.6-1.0) Estimated GFR (Cockcroft-Gault) 9.1 BUN/Creatinine Ratio 9 (6-20) Glucose Level 199 mg/dL (70-99) Glucose (Fingerstick) 174 mg/dL (70-99) Calcium Level 7.9 mg/dL (8.5-10.1) Phosphorus Level 7.9 mg/dL (2.6-4.7) Magnesium Level 2.2 mg/dL (1.8-2.4) Total Bilirubin 0.6 mg/dL (0.2-1.0) Aspartate Amino Transf (AST/SGOT) 265 U/L (15-37) Alanine Aminotransferase (ALT/SGPT) 219 U/L (14-59) Alkaline Phosphatase 281 U/L (46-116) Total Protein 6.7 g/dL (6.4-8.2) Albumin 1.1 g/dL (3.4-5.0) Albumin/Globulin Ratio 0.2 (1.0-1.7) O2 Saturation 95 % (92-99) Arterial Blood pH 7.28 (7.35-7.45) Arterial Blood pCO2 at Patient Temp 38 mmHg (35-46) Arterial Blood pO2 at Patient Temp 92 mmHg (75-108) Arterial Blood HCO3 17 mmol/L (21-28) Arterial Blood Base Excess -9 mmol/L (-3-3) FiO2 60 Medications Active Scripts Medications Dose Route/Sig Max Daily Dose Days Date Category Novolog Flexpen (Insulin Aspart) 100 Unit/1 Ml Insuln.pen 3-7 SQ TIDACHC 02/07/21 Reported Lisinopril 5 Mg Tablet 1 Tab PO DAILY 02/07/21 Reported Lantus Solostar (Insulin Glargine,Hum.rec.anlog) 100 Unit/1 Ml Insuln.pen 5 Unit SQ QHS 04/09/15 Reported Atorvastatin Calcium 40 Mg Tablet 40 Mg PO HS 04/09/15 Reported Comments Chest x-ray reviewed 03/09/2021. Diffuse interstitial infiltrates. No pneumothorax. No significant change cxr 03/06 reviewed 1. Significant interval increase in diffuse pulmonary infiltrate. 2. Stable support lines and tubes. Impression . IMPRESSION: 1. Acute hypoxic respiratory failure secondary to COVID-19 viral pneumonia/acute lung injury and early acute respiratory distress syndrome. S/P intubation 02/17/21,-- worsening hypoxia since 03/05, fever, low BP and BOB, New sepsis and secondary infection. 2. Nonsmoker. 3. Abnormal chest x-ray consistent with COVID-19 viral pneumonia.--- 4. Diabetic ketoacidosis as initial presentation, currently better.--resolved 5. Underlying obesity contributing to hypoxia as well. 6. BOB worsening hd started 03/07 7. Fever, On broad-spectrum antibiotics. Infectious disease following. 8. Abnormal chest x-ray with diffuse interstitial infiltrates compatible with viral pneumonia Plan . Updated 03/09/2021 Continue current ventilatory support, setting reviewed, on peep 8 fio2 60% titrate peep fio2 as tolerated. ABGs reviewed. Oxygenation has improved. levophed to keep map 65. hd started 03/07 per nephro CXR with unchanged diffuse interstitial infiltrates. Follow-up surgery recommendations for tracheostomy. I have discussed with Dr. Arzate. For now which is put a hold to tracheostomy until she is more stable. Follow chest x-ray/ABG Follow infectious disease recommendations in regards to antibiotics S/P remdesivir for full course, has also completed full course of steroids Continue tube feeding for nutritional support elevate hob DVT/GI prophylaxis: Lovenox Discussed with RN and RT I have discussed with Dr. Arzate. For now which is put a hold to tracheostomy until she is more stable. critically ill cct 30 min no overlap Updated 03/08/2021 Continue current ventilatory support, setting reviewed, on peep 8 fio2 60% titrate peep fio2 as tolerated levophed to keep map 65. hd started 03/07 per nephro CXR with worsening infiltrates. Follow-up surgery recommendations for tracheostomy. worsening would prob need trach Follow chest x-ray/ABG Follow infectious disease recommendations in regards to antibiotics S/P remdesivir for full course, has also completed full course of steroids Continue tube feeding for nutritional support elevate hob DVT/GI prophylaxis: Lovenox Discussed with RN and RT critically ill cct 30 min no overlap Updated 03/07/2021 Continue current ventilatory support, setting reviewed, will increase peep to 7 abg reviewed will increase peep to 8 rr to 24 levophed to keep map 65. Monitor renal function closely. cr 4.2 today renal consulted they will start dialysis today Oxygen requirement has increased. CXR with worsening infiltrates., no CHF Follow-up surgery recommendations for tracheostomy. Follow chest x-ray/ABG Follow infectious disease recommendations in regards to antibiotics S/P remdesivir for full course, has also completed full course of steroids Continue tube feeding for nutritional support DVT/GI prophylaxis: Lovenox Discussed with RN and RT critically ill cct 30 min no overlap Updated 03/06/2021 Continue current ventilatory support 18/450/55/5, Oxygen requirement has increased. CXR with worsening infiltrates., no CHF pt. still unable to tolerate sedation vacation/weaning trial. will hold further trials till clinically better Follow-up surgery recommendations for tracheostomy. May have to hold for now Follow chest x-ray/ABG Follow infectious disease recommendations in regards to antibiotics IVF bolus and low dose levophed. Monitor renal function closely. consult renal S/P remdesivir for full course, has also completed full course of steroids Continue tube feeding for nutritional support DVT/GI prophylaxis: Lovenox Discussed with RN and RT Critical care time 30 minutes addend: cxr with increase interstitial infiltrates c/w COVID Updated 03/05/2021 Continue current ventilatory support 18/450/40/5, pt. still unable to tolerate sedation vacation/weaning trial Follow-up surgery recommendations for tracheostomy Follow chest x-ray/ABG as needed--marginal PO2 no room for weaning Follow infectious disease recommendations in regards to antibiotics S/P remdesivir for full course, has also completed full course of steroids Continue tube feeding for nutritional support DVT/GI prophylaxis: Lovenox Discussed with RN and R Critical care time 30 minutes EMILY POSADA MD Mar 09, 2021 10:24
--- NOTE | 2021-03-09 11:10 | PDOC ---
Infectious Disease Note Subjective Subjective Pt intubated Fever pattern improved Had nausea and vomiting last p.m. TF on hold on HD March 07 Discussed with VANESA sandoval n/v/d/ Vital Sign Vital Signs Vital Signs Date Time Temp Pulse Resp B/P (MAP) Pulse Ox O2 Delivery O2 Flow Rate FiO2 03/09/21 08:52 99 Ventilator 03/09/21 07:00 68 24 146/82 (103) 03/09/21 04:00 98.9 98.9 Physical Exam PHYSICAL EXAM GENERAL: Intubated and sedated. HEENT: Normocephalic, atraumatic. Anicteric. Neck right IJ HDC clean LUNGS: Rhonchi. HEART: S1, S2. No murmurs. ABDOMEN: Obese, soft. Bowel sounds present. Nontender, nondistended. GENITOURINARY: Abbasi and fecal tube in place. EXTREMITIES: Edema present no cyanosis. CENTRAL NERVOUS SYSTEM: Intubated. PSYCHIATRIC: Unable to assess. Derm has pressure wounds wound pictures noted in chart. Generalized rash, PICC line , right IJ HDC clean Labs Lab Laboratory Tests Test 03/08/21 11:54 03/08/21 17:45 03/08/21 21:27 03/09/21 00:05 Glucose (Fingerstick) 134 mg/dL (70-99) 125 mg/dL (70-99) 121 mg/dL (70-99) 199 mg/dL (70-99) Test 03/09/21 06:00 03/09/21 09:05 White Blood Count 11.4 x10^3/uL (4.0-11.0) Red Blood Count 2.53 x10^6/uL (3.50-5.40) Hemoglobin 7.4 g/dL (12.0-15.5) Hematocrit 22.6 % (36.0-47.0) Mean Corpuscular Volume 89 fL (79-100) Mean Corpuscular Hemoglobin 29 pg (25-35) Mean Corpuscular Hemoglobin Concent 33 g/dL (31-37) Red Cell Distribution Width 14.1 % (11.5-14.5) Platelet Count 188 x10^3/uL (140-400) Neutrophils (%) (Auto) 73 % (31-73) Lymphocytes (%) (Auto) 12 % (24-48) Monocytes (%) (Auto) 5 % (0-9) Eosinophils (%) (Auto) 10 % (0-3) Basophils (%) (Auto) 0 % (0-3) Neutrophils # (Auto) 8.3 x10^3/uL (1.8-7.7) Lymphocytes # (Auto) 1.4 x10^3/uL (1.0-4.8) Monocytes # (Auto) 0.5 x10^3/uL (0.0-1.1) Eosinophils # (Auto) 1.1 x10^3/uL (0.0-0.7) Basophils # (Auto) 0.0 x10^3/uL (0.0-0.2) Segmented Neutrophils % 69 % (35-66) Band Neutrophils % 3 % (0-9) Lymphocytes % 17 % (24-48) Eosinophils % 11 % (0-5) Platelet Estimate Adequate (ADEQUATE) Sodium Level 131 mmol/L (136-145) Potassium Level 4.9 mmol/L (3.5-5.1) Chloride Level 96 mmol/L (98-107) Carbon Dioxide Level 20 mmol/L (21-32) Anion Gap 15 (6-14) Blood Urea Nitrogen 48 mg/dL (7-20) Creatinine 5.1 mg/dL (0.6-1.0) Estimated GFR (Cockcroft-Gault) 9.1 BUN/Creatinine Ratio 9 (6-20) Glucose Level 199 mg/dL (70-99) Glucose (Fingerstick) 174 mg/dL (70-99) Calcium Level 7.9 mg/dL (8.5-10.1) Phosphorus Level 7.9 mg/dL (2.6-4.7) Magnesium Level 2.2 mg/dL (1.8-2.4) Total Bilirubin 0.6 mg/dL (0.2-1.0) Aspartate Amino Transf (AST/SGOT) 265 U/L (15-37) Alanine Aminotransferase (ALT/SGPT) 219 U/L (14-59) Alkaline Phosphatase 281 U/L (46-116) Total Protein 6.7 g/dL (6.4-8.2) Albumin 1.1 g/dL (3.4-5.0) Albumin/Globulin Ratio 0.2 (1.0-1.7) O2 Saturation 95 % (92-99) Arterial Blood pH 7.28 (7.35-7.45) Arterial Blood pCO2 at Patient Temp 38 mmHg (35-46) Arterial Blood pO2 at Patient Temp 92 mmHg (75-108) Arterial Blood HCO3 17 mmol/L (21-28) Arterial Blood Base Excess -9 mmol/L (-3-3) FiO2 60 Micro Microbiology 03/04/21 Gram Stain Evaluation - Final, Complete 03/04/21 Respiratory Culture - Final, Complete 03/04/21 Urine Culture - Final, Complete 03/04/21 Blood Culture - Preliminary, Resulted NO GROWTH AFTER 4 DAYS Objective Assessment 1. Febrile illness. 2. COVID-19 infection present on date of admission, 02/06/2021. Status post remdesivir, dexamethasone. 3. Acute hypoxic respiratory failure, status post intubation. Trach cultures positive for Rock albicans 4. Diabetes. 5. Diarrhea. 6. Hypertension. 7. Hyperlipidemia. 8. Anemia. 9. BOB on HD 10.UC rock albican, ua neg Plan Plan of Care Continue Zosyn, renal dosing, Zyvox. Continue fluconazole renal dosing 03/07 Follow-up lab ,cultures, C. diff PCR negative Change abbasi if not done already. Wound care per wound treatment Offload Continue supportive care. Critically ill. Prognosis guarded. D/W VANESA CRAIG,BLANCA Mcgraw MD Mar 09, 2021 11:10
--- NOTE | 2021-03-09 12:15 | PDOC ---
SURGICAL PROGRESS NOTE DATE: 03/09/21 TIME: 12:14 Subjective Pt intubated, remains on elevated pulm support Vital Signs Vital Signs Date Time Temp Pulse Resp B/P (MAP) Pulse Ox O2 Delivery O2 Flow Rate FiO2 03/09/21 11:45 Mechanical Ventilator 03/09/21 11:39 98 03/09/21 07:00 68 24 146/82 (103) 03/09/21 04:00 98.9 98.9 I&O Intake and Output 03/09/21 07:00 Intake Total 3634.00 ml Output Total 1370 ml Balance 2264.00 ml IV Total 1905.00 ml Tube Feeding 1459 ml Other 270 ml Output Urine Total 20 ml Stool Total 1350 ml Gastric Drainage Total 0 ml General: No acute distress HEENT: Other (orally intubated) Labs Laboratory Tests Test 03/07/21 17:27 03/07/21 21:24 03/08/21 00:17 03/08/21 06:41 Glucose (Fingerstick) 248 mg/dL (70-99) 178 mg/dL (70-99) 219 mg/dL (70-99) 149 mg/dL (70-99) Test 03/08/21 07:10 03/08/21 08:35 03/08/21 11:54 03/08/21 17:45 White Blood Count 12.6 x10^3/uL (4.0-11.0) Red Blood Count 2.71 x10^6/uL (3.50-5.40) Hemoglobin 8.0 g/dL (12.0-15.5) Hematocrit 24.0 % (36.0-47.0) Mean Corpuscular Volume 89 fL (79-100) Mean Corpuscular Hemoglobin 30 pg (25-35) Mean Corpuscular Hemoglobin Concent 33 g/dL (31-37) Red Cell Distribution Width 14.0 % (11.5-14.5) Platelet Count 203 x10^3/uL (140-400) Neutrophils (%) (Auto) 75 % (31-73) Lymphocytes (%) (Auto) 10 % (24-48) Monocytes (%) (Auto) 5 % (0-9) Eosinophils (%) (Auto) 10 % (0-3) Basophils (%) (Auto) 0 % (0-3) Neutrophils # (Auto) 9.4 x10^3/uL (1.8-7.7) Lymphocytes # (Auto) 1.3 x10^3/uL (1.0-4.8) Monocytes # (Auto) 0.6 x10^3/uL (0.0-1.1) Eosinophils # (Auto) 1.2 x10^3/uL (0.0-0.7) Basophils # (Auto) 0.0 x10^3/uL (0.0-0.2) Sodium Level 133 mmol/L (136-145) Potassium Level 4.2 mmol/L (3.5-5.1) Chloride Level 97 mmol/L (98-107) Carbon Dioxide Level 23 mmol/L (21-32) Anion Gap 13 (6-14) Blood Urea Nitrogen 36 mg/dL (7-20) Creatinine 4.1 mg/dL (0.6-1.0) Estimated GFR (Cockcroft-Gault) 11.8 BUN/Creatinine Ratio 9 (6-20) Glucose Level 159 mg/dL (70-99) Calcium Level 7.9 mg/dL (8.5-10.1) Phosphorus Level 5.4 mg/dL (2.6-4.7) Magnesium Level 2.2 mg/dL (1.8-2.4) Total Bilirubin 0.6 mg/dL (0.2-1.0) Aspartate Amino Transf (AST/SGOT) 211 U/L (15-37) Alanine Aminotransferase (ALT/SGPT) 208 U/L (14-59) Alkaline Phosphatase 227 U/L (46-116) Total Protein 6.8 g/dL (6.4-8.2) Albumin 1.1 g/dL (3.4-5.0) Albumin/Globulin Ratio 0.2 (1.0-1.7) O2 Saturation 93 % (92-99) Arterial Blood pH 7.34 (7.35-7.45) Arterial Blood pCO2 at Patient Temp 37 mmHg (35-46) Arterial Blood pO2 at Patient Temp 74 mmHg (75-108) Arterial Blood HCO3 20 mmol/L (21-28) Arterial Blood Base Excess -6 mmol/L (-3-3) FiO2 60 Glucose (Fingerstick) 134 mg/dL (70-99) 125 mg/dL (70-99) Test 03/08/21 21:27 03/09/21 00:05 03/09/21 06:00 03/09/21 09:05 Glucose (Fingerstick) 121 mg/dL (70-99) 199 mg/dL (70-99) 174 mg/dL (70-99) White Blood Count 11.4 x10^3/uL (4.0-11.0) Red Blood Count 2.53 x10^6/uL (3.50-5.40) Hemoglobin 7.4 g/dL (12.0-15.5) Hematocrit 22.6 % (36.0-47.0) Mean Corpuscular Volume 89 fL (79-100) Mean Corpuscular Hemoglobin 29 pg (25-35) Mean Corpuscular Hemoglobin Concent 33 g/dL (31-37) Red Cell Distribution Width 14.1 % (11.5-14.5) Platelet Count 188 x10^3/uL (140-400) Neutrophils (%) (Auto) 73 % (31-73) Lymphocytes (%) (Auto) 12 % (24-48) Monocytes (%) (Auto) 5 % (0-9) Eosinophils (%) (Auto) 10 % (0-3) Basophils (%) (Auto) 0 % (0-3) Neutrophils # (Auto) 8.3 x10^3/uL (1.8-7.7) Lymphocytes # (Auto) 1.4 x10^3/uL (1.0-4.8) Monocytes # (Auto) 0.5 x10^3/uL (0.0-1.1) Eosinophils # (Auto) 1.1 x10^3/uL (0.0-0.7) Basophils # (Auto) 0.0 x10^3/uL (0.0-0.2) Segmented Neutrophils % 69 % (35-66) Band Neutrophils % 3 % (0-9) Lymphocytes % 17 % (24-48) Eosinophils % 11 % (0-5) Platelet Estimate Adequate (ADEQUATE) Sodium Level 131 mmol/L (136-145) Potassium Level 4.9 mmol/L (3.5-5.1) Chloride Level 96 mmol/L (98-107) Carbon Dioxide Level 20 mmol/L (21-32) Anion Gap 15 (6-14) Blood Urea Nitrogen 48 mg/dL (7-20) Creatinine 5.1 mg/dL (0.6-1.0) Estimated GFR (Cockcroft-Gault) 9.1 BUN/Creatinine Ratio 9 (6-20) Glucose Level 199 mg/dL (70-99) Calcium Level 7.9 mg/dL (8.5-10.1) Phosphorus Level 7.9 mg/dL (2.6-4.7) Magnesium Level 2.2 mg/dL (1.8-2.4) Total Bilirubin 0.6 mg/dL (0.2-1.0) Aspartate Amino Transf (AST/SGOT) 265 U/L (15-37) Alanine Aminotransferase (ALT/SGPT) 219 U/L (14-59) Alkaline Phosphatase 281 U/L (46-116) Total Protein 6.7 g/dL (6.4-8.2) Albumin 1.1 g/dL (3.4-5.0) Albumin/Globulin Ratio 0.2 (1.0-1.7) O2 Saturation 95 % (92-99) Arterial Blood pH 7.28 (7.35-7.45) Arterial Blood pCO2 at Patient Temp 38 mmHg (35-46) Arterial Blood pO2 at Patient Temp 92 mmHg (75-108) Arterial Blood HCO3 17 mmol/L (21-28) Arterial Blood Base Excess -9 mmol/L (-3-3) FiO2 60 Laboratory Tests Test 03/08/21 17:45 03/08/21 21:27 03/09/21 00:05 03/09/21 06:00 Glucose (Fingerstick) 125 mg/dL (70-99) 121 mg/dL (70-99) 199 mg/dL (70-99) 174 mg/dL (70-99) White Blood Count 11.4 x10^3/uL (4.0-11.0) Red Blood Count 2.53 x10^6/uL (3.50-5.40) Hemoglobin 7.4 g/dL (12.0-15.5) Hematocrit 22.6 % (36.0-47.0) Mean Corpuscular Volume 89 fL (79-100) Mean Corpuscular Hemoglobin 29 pg (25-35) Mean Corpuscular Hemoglobin Concent 33 g/dL (31-37) Red Cell Distribution Width 14.1 % (11.5-14.5) Platelet Count 188 x10^3/uL (140-400) Neutrophils (%) (Auto) 73 % (31-73) Lymphocytes (%) (Auto) 12 % (24-48) Monocytes (%) (Auto) 5 % (0-9) Eosinophils (%) (Auto) 10 % (0-3) Basophils (%) (Auto) 0 % (0-3) Neutrophils # (Auto) 8.3 x10^3/uL (1.8-7.7) Lymphocytes # (Auto) 1.4 x10^3/uL (1.0-4.8) Monocytes # (Auto) 0.5 x10^3/uL (0.0-1.1) Eosinophils # (Auto) 1.1 x10^3/uL (0.0-0.7) Basophils # (Auto) 0.0 x10^3/uL (0.0-0.2) Segmented Neutrophils % 69 % (35-66) Band Neutrophils % 3 % (0-9) Lymphocytes % 17 % (24-48) Eosinophils % 11 % (0-5) Platelet Estimate Adequate (ADEQUATE) Sodium Level 131 mmol/L (136-145) Potassium Level 4.9 mmol/L (3.5-5.1) Chloride Level 96 mmol/L (98-107) Carbon Dioxide Level 20 mmol/L (21-32) Anion Gap 15 (6-14) Blood Urea Nitrogen 48 mg/dL (7-20) Creatinine 5.1 mg/dL (0.6-1.0) Estimated GFR (Cockcroft-Gault) 9.1 BUN/Creatinine Ratio 9 (6-20) Glucose Level 199 mg/dL (70-99) Calcium Level 7.9 mg/dL (8.5-10.1) Phosphorus Level 7.9 mg/dL (2.6-4.7) Magnesium Level 2.2 mg/dL (1.8-2.4) Total Bilirubin 0.6 mg/dL (0.2-1.0) Aspartate Amino Transf (AST/SGOT) 265 U/L (15-37) Alanine Aminotransferase (ALT/SGPT) 219 U/L (14-59) Alkaline Phosphatase 281 U/L (46-116) Total Protein 6.7 g/dL (6.4-8.2) Albumin 1.1 g/dL (3.4-5.0) Albumin/Globulin Ratio 0.2 (1.0-1.7) Test 03/09/21 09:05 O2 Saturation 95 % (92-99) Arterial Blood pH 7.28 (7.35-7.45) Arterial Blood pCO2 at Patient Temp 38 mmHg (35-46) Arterial Blood pO2 at Patient Temp 92 mmHg (75-108) Arterial Blood HCO3 17 mmol/L (21-28) Arterial Blood Base Excess -9 mmol/L (-3-3) FiO2 60 Problem List Problems Medical Problems: (1) Ketoacidosis Status: Acute Assessment/Plan d/w pulm favor holding tracheostomy placement at this time. Justicifation of Admission Dx: Justifications for Admission: Justification of Admission Dx: N/A DANIEL ACHARYA MD Mar 09, 2021 12:15
--- NOTE | 2021-03-09 15:44 | NUR ---
SS following up with discharge planning. SS reviewed pt chart and discussed with pt RN. Pt is currently on the vent at 50%. 7 of peep. COVID19 positive. Pt on Versed, Precedex, Fentanyl, Propofol, and Levophed. Pt on IV Zosyn and IV Fluconazole. SS will continue to follow for discharge planning.
--- NOTE | 2021-03-09 17:03 | NUR ---
Wound/Ostomy Care Wound Type/Assessment: Wound care consult for buttock wound. Pt has stage II with DTI to coccyx and yeasty rash to marilyn area. pt is very edematous and skin is taut. Cleansed area and applied barrier cream to coccyx and nystatin to marilyn area. Pt desated to 78% after being turned, raised HOB and turned up O2 on vent to 100% at request of Maico ALEXIS. Treatment Recommendations/Plan: Cleanse wound area and apply A&D ointment BID and PRN, TQ2H as tolerated Education provided: Pt on ventilator unable to educate Offloading surface/device: TQ2H, float heels Recommended Referrals/Tests: na Discharge Recommendations for dressings: see above
[2021-03-09] MEDS ORDERED: ALBUMIN HUMAN 25% 200 ML IV PRN (18:15)
[2021-03-09] MEDS ORDERED: DIALYSIS PATIENT. MC PRN ×2 (18:15)
[2021-03-09] MEDS ORDERED: IV NORMAL SALINE 1000ML BAG 1,000 ML IV PRN ×2 (18:15)
[2021-03-09] MEDS: ATORVASTATIN CALCIUM 40 MG TABLET. PO SCH (21:18)
[2021-03-10] VITALS (33 sets, daily range): BP systolic 52–182; BP diastolic 38–91
[2021-03-10] MEDS: DEXMEDETOMIDINE 400 MCG in IV NORMAL SALINE 100ML 96 ML IV PRN ×6 (01:12→21:54)
[2021-03-10] MEDS: PROPOFOL 100 ML IV PRN ×4 (02:37→21:01)
[2021-03-10] MEDS: VITS A & D/LANOLIN TOPICAL OINTMENT 42GM TUBE. TP PRN ×3 (02:37→20:59)
[2021-03-10] MEDS: PIPERACILLIN/TAZOBACTAM 2.25 GM in IV NORMAL SALINE 50ML 50 ML IV SCH ×3 (05:38→20:59)
[2021-03-10 06:35] LABS: BASO # 0.1 x10^3/uL (0.0-0.2); BASO % 1 % (0-3); EOS # 1.2 x10^3/uL (0.0-0.7); EOS % 8 % (0-3); HEMATOCRIT 21.8 % (36.0-47.0); HEMOGLOBIN 7.5 g/dL (12.0-15.5); LYMPH # 1.6 x10^3/uL (1.0-4.8); LYMPH % 11 % (24-48); MEAN CORPUSCULAR HEMOGLOBIN 30 pg (25-35); MEAN CORPUSCULAR HGB CONC 34 g/dL (31-37); MEAN CORPUSCULAR VOLUME 88 fL (79-100); MONO # 0.5 x10^3/uL (0.0-1.1); MONO % 4 % (0-9); NEUT # 11.6 x10^3/uL (1.8-7.7); NEUT % 78 % (31-73); PLATELET COUNT 175 x10^3/uL (140-400); RED CELL DISTRIBUTION WIDTH 13.7 % (11.5-14.5)
[2021-03-10] MEDS: INSULIN LISPRO 300 UNITS/3 ML VIAL. SQ SCH ×4 (06:38→17:21)
[2021-03-10 06:47] LABS: ALBUMIN 1.4 g/dL (3.4-5.0); ALBUMIN/GLOBULIN RATIO 0.3 (1.0-1.7); CALCIUM 7.9 mg/dL (8.5-10.1); CREATININE 4.1 mg/dL (0.6-1.0); GFR 11.8; POTASSIUM 4.2 mmol/L (3.5-5.1); TOTAL BILIRUBIN 0.6 mg/dL (0.2-1.0); TOTAL PROTEIN 6.5 g/dL (6.4-8.2)
--- NOTE | 2021-03-10 07:28 | PDOC ---
Infectious Disease Note Subjective Subjective Pt intubated Fever pattern improved TF on hold on HD March 07 Discussed with VANESA MADRID no n/v/d/ Vital Sign Vital Signs Vital Signs Date Time Temp Pulse Resp B/P (MAP) Pulse Ox O2 Delivery O2 Flow Rate FiO2 03/10/21 06:00 72 24 104/60 (75) 97 Ventilator 03/10/21 04:00 99.3 99.3 03/09/21 17:47 50.0 Physical Exam PHYSICAL EXAM GENERAL: Intubated and sedated. HEENT: Normocephalic, atraumatic. Anicteric. Neck right IJ HDC clean LUNGS: Rhonchi. HEART: S1, S2. No murmurs. ABDOMEN: Obese, soft. Bowel sounds present. Nontender, nondistended. GENITOURINARY: Abbasi and fecal tube in place. EXTREMITIES: Edema present no cyanosis. CENTRAL NERVOUS SYSTEM: Intubated. PSYCHIATRIC: Unable to assess. Derm has pressure wounds wound pictures noted in chart. Generalized rash, PICC line , right IJ HDC clean Labs Lab Laboratory Tests Test 03/09/21 09:05 03/09/21 12:53 03/09/21 17:56 03/09/21 21:47 O2 Saturation 95 % (92-99) Arterial Blood pH 7.28 (7.35-7.45) Arterial Blood pCO2 at Patient Temp 38 mmHg (35-46) Arterial Blood pO2 at Patient Temp 92 mmHg (75-108) Arterial Blood HCO3 17 mmol/L (21-28) Arterial Blood Base Excess -9 mmol/L (-3-3) FiO2 60 Glucose (Fingerstick) 137 mg/dL (70-99) 132 mg/dL (70-99) 107 mg/dL (70-99) Test 03/09/21 23:57 03/10/21 06:08 03/10/21 06:20 Glucose (Fingerstick) 144 mg/dL (70-99) 153 mg/dL (70-99) White Blood Count 15.0 x10^3/uL (4.0-11.0) Red Blood Count 2.50 x10^6/uL (3.50-5.40) Hemoglobin 7.5 g/dL (12.0-15.5) Hematocrit 21.8 % (36.0-47.0) Mean Corpuscular Volume 88 fL (79-100) Mean Corpuscular Hemoglobin 30 pg (25-35) Mean Corpuscular Hemoglobin Concent 34 g/dL (31-37) Red Cell Distribution Width 13.7 % (11.5-14.5) Platelet Count 175 x10^3/uL (140-400) Neutrophils (%) (Auto) 78 % (31-73) Lymphocytes (%) (Auto) 11 % (24-48) Monocytes (%) (Auto) 4 % (0-9) Eosinophils (%) (Auto) 8 % (0-3) Basophils (%) (Auto) 1 % (0-3) Neutrophils # (Auto) 11.6 x10^3/uL (1.8-7.7) Lymphocytes # (Auto) 1.6 x10^3/uL (1.0-4.8) Monocytes # (Auto) 0.5 x10^3/uL (0.0-1.1) Eosinophils # (Auto) 1.2 x10^3/uL (0.0-0.7) Basophils # (Auto) 0.1 x10^3/uL (0.0-0.2) Sodium Level 131 mmol/L (136-145) Potassium Level 4.2 mmol/L (3.5-5.1) Chloride Level 95 mmol/L (98-107) Carbon Dioxide Level 25 mmol/L (21-32) Anion Gap 11 (6-14) Blood Urea Nitrogen 35 mg/dL (7-20) Creatinine 4.1 mg/dL (0.6-1.0) Estimated GFR (Cockcroft-Gault) 11.8 BUN/Creatinine Ratio 9 (6-20) Glucose Level 182 mg/dL (70-99) Calcium Level 7.9 mg/dL (8.5-10.1) Total Bilirubin 0.6 mg/dL (0.2-1.0) Aspartate Amino Transf (AST/SGOT) 275 U/L (15-37) Alanine Aminotransferase (ALT/SGPT) 188 U/L (14-59) Alkaline Phosphatase 258 U/L (46-116) Total Protein 6.5 g/dL (6.4-8.2) Albumin 1.4 g/dL (3.4-5.0) Albumin/Globulin Ratio 0.3 (1.0-1.7) Micro Microbiology 03/04/21 Gram Stain Evaluation - Final, Complete 03/04/21 Respiratory Culture - Final, Complete 03/04/21 Urine Culture - Final, Complete 03/04/21 Blood Culture - Preliminary, Resulted NO GROWTH AFTER 4 DAYS Objective Assessment 1. Febrile illness. 2. COVID-19 infection present on date of admission, 02/06/2021. Status post remdesivir, dexamethasone. 3. Acute hypoxic respiratory failure, status post intubation. Trach cultures positive for Rock albicans 4. Diabetes. 5. Diarrhea. 6. Hypertension. 7. Hyperlipidemia. 8. Anemia. 9. BOB on HD 10.UC rock albican, ua neg Plan Plan of Care Continue Zosyn, renal dosing, Zyvox. Continue fluconazole renal dosing 03/07 Follow-up lab ,cultures, C. diff PCR negative Change abbasi if not done already. Wound care per wound treatment Offload Continue supportive care. Critically ill. Prognosis guarded. D/W BLANCA CURIEL MD Mar 10, 2021 07:28
[2021-03-10 08:04] LABS: BASE EXCESS ABG -5 mmol/L (-3-3); HCO3 ABG 20 mmol/L (21-28); PCO2 ABG 37 mmHg (35-46); PO2 ABG 91 mmHg (75-108); SAT O2 ABG 96 % (92-99)
[2021-03-10 08:08] LABS: FIO2 ABG 60
--- NOTE | 2021-03-10 08:56 | PDOC ---
[employer] PROGRESS NOTE Date of Service DOS: DATE: 03/10/21 TIME: 08:56 Chief Complaint Chief Complaint Hypotension COVID-19 positive infection Tractable nausea vomiting DKA Combined metabolic and respiratory acidosis Acute electrolyte derangementhyponatremia, hypochloremia due to volume depletion Hyperglycemia uncontrolled BOB due to vasomotor nephropathy Erythrocytosis Reglan for diabetic gastroparesis Candiduria Sacral decubitus ulcer Started on fluconazole today and Zosyn Continue Covid measures Patient intubated Pulmonary following SCD for DVT prophylaxis Protonix GI prophylaxis ADA diet Full code Discussed with RN and SW Disposition inpatient management as above Surrogate decision maker is Brian Whitmore History of Present Illness History of Present Illness Ms Borges is a 46 year old female who presented with nausea/vomiting since 7 AM 02/06/2021 in the morning. Patient stated that her recently tested positive for Covid. She states that he "coughed in my face because he thought it was funny." She reports subjective fevers and chills and nausea/vomiting. Denies sore throat, cough, shortness of breath. No chest pain. Does have some upper abdominal discomfort after vomiting, that she attributes to muscular strain. She was not vaccinated for Covid. 02/08: No acute events overnight. Patient seen and examined bedside and resting comfortably. Continues to complain of nausea not able to tolerate any diet at this time. Saturating 98% on room air. Patient's chart, labs, images were reviewed and discussed with RN 02/09: Afebrile, currently breathing on room air. Still with complaints of nausea and vomiting x3 today. States that she has history of similar symptoms that have been mildly improved with IV Dilaudid. 02/10: Patient febrile today with T-max 102.2 F. She still admits to nausea, denies any further vomiting. We will continue to provide supportive care and monitor for any recurrent fevers overnight. Patient continues to improve may discharge tomorrow to continue self-isolation. 02/11: Febrile overnight, T-max 102.3 F. She did become hypoxic overnight, currently breathing on 4 L nasal cannula. Also admits to associated vomiting or diarrhea overnight. Discussed with RN, will initiate remdesivir and closely monitor LFTs. IV Decadron, and prophylactic antibiotics. 02/12: Low-grade fever overnight, T-max 99.7. Currently breathing on room air. Will discontinue remdesivir, steroids, and antibiotics; will observe overnight. Still with complaints of vomiting x1 and diarrhea. We will continue to provide supportive care and hope to discharge in the next day or so. 02/13: Afebrile. Still complains of intermittent diarrhea. At the time of my evaluation she was breathing on 6 L nasal cannula; this is somewhat misleading as patient states that she did not feel short of breath but was placed on 6 L by nursing staff overnight. 02/14: Afebrile, currently breathing on 8 L nasal cannula. There has been some misleading documentation, chart oxygen this patient is requiring. Discussed with RN, will resume remdesivir to complete total of 5 days. Continue to monitor LFTs. Will add steroids, Rocephin, and azithromycin. 02/15: Afebrile. Became much more hypoxic overnight, requiring BiPAP. At the time of my evaluation she is still breathing on BiPAP. Consultation was placed to pulmonology. Had discussion with Dr. Myrick about initiating Tocilizumab 02/16: No acute events overnight. Patient becoming more hypoxic saturating 94% and requiring BiPAP. Patient will be transferred to the ICU at this time. For worsening clinical status. Discussed with pulmonary. Patient's chart, labs, images were reviewed and discussed with RN 02/17: Transferred to ICU yesterday afternoon. Seen and examined at bedside she remains on 100% FiO2 on BiPAP. Respirations do appear somewhat labored. Suspect intubation may be impending. We will closely monitor. Increase lisinopril to 20 today. 02/18: Patient required intubation yesterday afternoon. Saw and examined this morning. She is intubated and sedated. Increase insulin today. Covid protocol ordered. Wean as tolerated. Plan of care discussed with bedside nurse. 02/19: Bedside. She remains intubated and sedated. Continue Covid protocol. Wean oxygen sedation as tolerated. Pulmonary following. Plan of care discussed with bedside RN. 02/20: Patient seen and examined at bedside. She remains intubated and sedated. No major clinical changes. Continue current treatment. Pulmonary following. Plan of care discussed with bedside RN. 02/21: Patient seen and examined at bedside. Remains intubated and sedated date and admission clinical changes. Increase free water flushes today due to hypernatremia. Plan of care discussed with bedside nurse. 02/22: Patient seen and examined at bedside. O2 requirement actually improving, although remains intubated. Possible SBT in the coming days. Hypernatremia improving. Plan of care discussed bedside RN. 02/23: Patient remains in ICU on ventilator with FiO2 100%, PEEP 7. Repeat chest x-ray yesterday showed diffuse bilateral pulmonary opacities with no interval improvement. Will discontinue Rocephin and initiate Zosyn. We will continue IV steroids for a full 10-day course 02/24: Afebrile. On vent with FiO2 40%, PEEP 6. Her Coreg has been held due to persistent bradycardia. No documented history of systolic heart failure or pr evious echocardiogram. Will need to obtain echocardiogram prior to discharge. Continue IV steroids and antibiotics. 02/25: Afebrile. Remains ventilated with FiO2 45%, PEEP 6. Chest x-ray today showed slight improvement of the pulmonary infiltrates, no pneumothorax. Completed 10-day course of IV Decadron. Will initiate slow Solu-Medrol taper. Continue IV Zosyn. Continue supportive care. 02/26: Afebrile. On vent with FiO2 45%, PEEP 6. Completed 10 days of IV Decadron. Will continue IV Zosyn. Continue supportive care. Critical care time 30 minutes spent reviewing charts, reviewing imaging, reviewing labs, discussion with RN. 02/27: Afebrile. On vent with FiO2 45%, PEEP 6. Completed 10 days of steroids and completed remdesivir. Continue with IV Zosyn. CPAP trial yesterday. Continue NG tube and supportive care. 02/28:. Patient remains on vent with FiO2 40%, PEEP 5. Afebrile. Completed steroids and remdesivir. Some noted hypoglycemia overnight, will de-escalate basal insulin. Continue IV Zosyn. Ventilator management per pulmonology. Continue NG tube and supportive care. 03/01: On vent with FiO2 40%, PEEP 5. Afebrile. Completed steroids and remdesivir. Blood glucose well controlled. Continue empiric antibiotics with Zosyn. Ventilator management per pulmonology. Continue NG tube and supportive care. 03/02: No acute events overnight. Patient hypotensive the morning due to oversedation. Will wean off sedation and keep antihypertensive medications on board. Currently saturating 100% on vent settings of 18/450/40/5. Will attempt spontaneous breathing trial today to see how patient does. 03/03: No acute events overnight. Patient saturating 98% on vent settings of 18/450/40/5. Will defer spontaneous breathing trials to pulmonary at this time. Patient's chart, labs, images were reviewed and discussed with RN 03/04: No acute events overnight. Patient saturating 9 9% on vent settings of 18/450/30/5. Patient currently is unable to tolerate weaning. Per pulmonary. Patient's chart, labs, images were reviewed and discussed with RN 03/05: No acute events overnight. Patient is saturating 97% on vent settings of 18/450/55/5. Her FiO2 needs to be increased due to abnormal ABG with 7.3 /. Patient's chart, labs, images were reviewed and discussed with RN 03/06: No acute events overnight. Patient saturating 94% on vent settings of 18/450/55/5. Chest x-ray showing increase in pulmonary infiltrates. Wound care is consulted for decubitus ulcer patient's chart, labs, images were reviewed and discussed with RN 03/07: No acute events overnight. Patient saturating 94% on vent settings of 20/450/70/8. Patient now heading into renal failure with her creatinine bumped up from 1.5-4.2. Decreased urine output. Plan for hemodialysis today and temporary catheter placement and nephrology is consulted. 03/08: No acute events overnight. Patient did have a nausea vomiting episode and tube feeds were held. KUB repeat shows NG tube still in the stomach. Will resume tube feeds at trickle and advance to goal today. Will start hemodialysis soon. 03/09: Seen on vent 20/450/60%/8. ABG 7.2 WBC 11.4, Hb 7.4, platelets 188, NA 131, K4.9, BUN 48, CR 51, glucose 199, phosphorus 7.9, mag 2.2, AST 265 ALT 219, albumin 1.1. Chest radiograph appears unchanged from prior. Dialysis x1 today 03/10: Afebrile. Seen on vent, 20/450/60/7 with ABG 7.3 . Tolerated dialysis well on 03/09. LFTs similar. CC time 32 minutes Vitals/I&O Vitals/I&O: Vital Signs Date Time Temp Pulse Resp B/P (MAP) Pulse Ox O2 Delivery O2 Flow Rate FiO2 03/10/21 07:53 93 Ventilator 03/10/21 06:00 72 24 104/60 (75) 03/10/21 04:00 99.3 99.3 03/09/21 17:47 50.0 I & O 03/09/21 03/09/21 03/10/21 15:00 23:00 07:00 Intake Total 780 ml 1529.62 ml 2165 ml Output Total 0 ml 15 ml 0 ml Balance 780 ml 1514.62 ml 2165 ml Physical Exam Physical Exam: GENERAL: Intubated and sedated. HEENT: Normocephalic, atraumatic. Anicteric. Neck right IJ HDC clean LUNGS: Rhonchi. HEART: S1, S2. No murmurs. ABDOMEN: Obese, soft. Bowel sounds present. Nontender, nondistended. GENITOURINARY: Kern and fecal tube in place. EXTREMITIES: Edema present no cyanosis. CENTRAL NERVOUS SYSTEM: Intubated. PSYCHIATRIC: Unable to assess. Derm has pressure wounds wound pictures noted in chart. Generalized rash, PICC line , right IJ HDC clean General: No acute distress Heart: Regular rate Abdomen: Normal bowel sounds, Soft, No tenderness Extremities: No clubbing, No cyanosis, Other Skin: No rashes, No significant lesion Labs Labs: Laboratory Tests Test 03/09/21 09:05 03/09/21 12:53 03/09/21 17:56 03/09/21 21:47 O2 Saturation 95 % (92-99) Arterial Blood pH 7.28 (7.35-7.45) Arterial Blood pCO2 at Patient Temp 38 mmHg (35-46) Arterial Blood pO2 at Patient Temp 92 mmHg (75-108) Arterial Blood HCO3 17 mmol/L (21-28) Arterial Blood Base Excess -9 mmol/L (-3-3) FiO2 60 Glucose (Fingerstick) 137 mg/dL (70-99) 132 mg/dL (70-99) 107 mg/dL (70-99) Test 03/09/21 23:57 03/10/21 06:08 03/10/21 06:20 03/10/21 07:59 Glucose (Fingerstick) 144 mg/dL (70-99) 153 mg/dL (70-99) White Blood Count 15.0 x10^3/uL (4.0-11.0) Red Blood Count 2.50 x10^6/uL (3.50-5.40) Hemoglobin 7.5 g/dL (12.0-15.5) Hematocrit 21.8 % (36.0-47.0) Mean Corpuscular Volume 88 fL (79-100) Mean Corpuscular Hemoglobin 30 pg (25-35) Mean Corpuscular Hemoglobin Concent 34 g/dL (31-37) Red Cell Distribution Width 13.7 % (11.5-14.5) Platelet Count 175 x10^3/uL (140-400) Neutrophils (%) (Auto) 78 % (31-73) Lymphocytes (%) (Auto) 11 % (24-48) Monocytes (%) (Auto) 4 % (0-9) Eosinophils (%) (Auto) 8 % (0-3) Basophils (%) (Auto) 1 % (0-3) Neutrophils # (Auto) 11.6 x10^3/uL (1.8-7.7) Lymphocytes # (Auto) 1.6 x10^3/uL (1.0-4.8) Monocytes # (Auto) 0.5 x10^3/uL (0.0-1.1) Eosinophils # (Auto) 1.2 x10^3/uL (0.0-0.7) Basophils # (Auto) 0.1 x10^3/uL (0.0-0.2) Sodium Level 131 mmol/L (136-145) Potassium Level 4.2 mmol/L (3.5-5.1) Chloride Level 95 mmol/L (98-107) Carbon Dioxide Level 25 mmol/L (21-32) Anion Gap 11 (6-14) Blood Urea Nitrogen 35 mg/dL (7-20) Creatinine 4.1 mg/dL (0.6-1.0) Estimated GFR (Cockcroft-Gault) 11.8 BUN/Creatinine Ratio 9 (6-20) Glucose Level 182 mg/dL (70-99) Calcium Level 7.9 mg/dL (8.5-10.1) Total Bilirubin 0.6 mg/dL (0.2-1.0) Aspartate Amino Transf (AST/SGOT) 275 U/L (15-37) Alanine Aminotransferase (ALT/SGPT) 188 U/L (14-59) Alkaline Phosphatase 258 U/L (46-116) Total Protein 6.5 g/dL (6.4-8.2) Albumin 1.4 g/dL (3.4-5.0) Albumin/Globulin Ratio 0.3 (1.0-1.7) O2 Saturation 96 % (92-99) Arterial Blood pH 7.36 (7.35-7.45) Arterial Blood pCO2 at Patient Temp 37 mmHg (35-46) Arterial Blood pO2 at Patient Temp 91 mmHg (75-108) Arterial Blood HCO3 20 mmol/L (21-28) Arterial Blood Base Excess -5 mmol/L (-3-3) FiO2 60 Assessment and Plan Assessmemt and Plan Problems Medical Problems: (1) Ketoacidosis Status: Acute Comment Review of Relevant I have reviewed the following items mazin (where applicable) has been applied. Medications: Current Medications Medications (Trade) Dose Ordered Sig/Pepe Route PRN Reason Start Time Stop Time Status Last Admin Dose Admin Albumin Human 200 ml @ 200 mls/hr 1X PRN PRN IV Hypotension 03/09/21 18:15 03/10/21 00:14 DC 03/09/21 19:40 Vitamin A/Vitamin D (Vitamin A & D Ointment) 1 reji PRN Q1HR PRN TP SKIN PROTECTION 03/10/21 01:45 03/10/21 02:37 Justifications for Admission Other Justification LEO GROSS MD Mar 10, 2021 08:56
[2021-03-10] MEDS: NYSTATIN TOPICAL POWDER 15GM BOTTLE. TP SCH ×2 (09:00→20:59)
--- NOTE | 2021-03-10 09:04 | PDOC ---
DATE OF SERVICE DATE: 03/10/21 TIME: 09:04 SUBJECTIVE ROS Intubated on MV OBJECTIVE Vital Signs Vital Signs Date Time Temp Pulse Resp B/P (MAP) Pulse Ox O2 Delivery O2 Flow Rate FiO2 03/10/21 07:53 93 Ventilator 03/10/21 06:00 72 24 104/60 (75) 03/10/21 04:00 99.3 99.3 03/09/21 17:47 50.0 I & 0 Intake and Output 03/10/21 07:00 Intake Total 4474.62 ml Output Total 15 ml Balance 4459.62 ml IV Total 1700.62 ml Tube Feeding 2204 ml Other 570 ml Output Urine Total 15 ml PHYSICAL EXAM Physical Exam GENERAL: Intubated and sedated. HEENT: Anicteric.Intubated Neck right IJ HDC LUNGS: decreased at bases HEART: S1, S2. No murmurs. ABDOMEN: Obese, soft. Bowel sounds present. GENITOURINARY: Abbasi and rectal tube in place. EXTREMITIES: Edema present no cyanosis. CENTRAL NERVOUS SYSTEM: Intubated. PSYCHIATRIC: Unable to assess. Derm has pressure wounds wound DIAGNOSIS/ASSESSMENT Assessment & Plan BOB-ATN- anuric , requiring dialysis.Dialyzed 03/09 , Currently no emergent indication for dialysis Supportive care, I/O, rule out abbasi malfunction avoid nephrotoxins, Monitor for recovery Hematuria - ? Abbasi sample DM 2 - Glucosuria + POA Metab and Resp Acidosis COVID 19 Pneumonia - Unvaccinated Acute Resp Failure- Intubated Diffuse infiltrates with little change. HTN BP low Anemia -avoid DOYLE 2/2 to Thrombogenic state COMMENT/RELEVANT DATA Meds Current Medications Medications (Trade) Dose Ordered Sig/Pepe Start Time Stop Time Status Last Admin Dose Admin Acetaminophen (Tylenol Supp) 650 mg PRN Q6HRS PRN 02/08/21 01:45 02/17/21 10:45 DC Acetaminophen (Tylenol) 650 mg PRN Q6HRS PRN 02/17/21 10:45 03/08/21 21:43 650 MG Albumin Human 200 ml @ 200 mls/hr 1X PRN PRN 03/09/21 18:15 03/10/21 00:14 DC 03/09/21 19:40 200 MLS/HR Alteplase, Recombinant (Cathflo For Central Catheter Clearance) 1 mg 1X ONCE 02/27/21 14:30 02/27/21 14:36 DC 02/27/21 15:19 1 MG Alteplase, Recombinant (Cathflo) 2 mg 1X ONCE 02/27/21 11:00 02/27/21 11:01 DC 02/27/21 11:20 2 MG Amlodipine Besylate (Norvasc) 5 mg DAILY 02/24/21 09:00 03/09/21 10:43 DC 02/27/21 09:10 5 MG Atorvastatin Calcium (Lipitor) 40 mg HS 02/08/21 21:00 03/09/21 21:18 40 MG Atropine Sulfate (ATROPINE 0.5mg SYRINGE) 0.5 mg PRN Q5MIN PRN 02/16/21 12:00 Azithromycin 250 mg/Sodium Chloride 250 ml @ 250 mls/hr Q24H 02/14/21 13:30 02/18/21 14:29 DC 02/18/21 11:51 250 MLS/HR Benzonatate (Tessalon Perle) 100 mg [id number] 02/10/21 23:30 02/17/21 10:45 DC 02/16/21 22:07 100 MG Carvedilol (Coreg) 6.25 mg [id number] 02/08/21 20:30 02/23/21 15:50 DC 02/23/21 08:06 6.25 MG Ceftriaxone Sodium (Rocephin) 1 gm Q24H 02/14/21 13:00 02/23/21 07:34 DC 02/22/21 12:42 1 GM Dexamethasone Sodium Phosphate (Decadron) 2 mg 1X ONCE 02/27/21 09:00 02/26/21 07:15 DC Dexmedetomidine HCl 400 mcg/ Sodium Chloride 100 ml @ 0 mls/hr CONT PRN 02/27/21 09:45 03/10/21 05:04 26 MLS/HR Dextrose (Dextrose 50%-Water Syringe) 12.5 gm PRN Q15MIN PRN 03/01/21 13:00 03/01/21 12:55 12.5 GM Docusate Sodium (Colace Solution) 100 mg BID 02/23/21 12:00 03/09/21 09:28 100 MG Docusate Sodium (Colace) 100 mg PRN DAILY PRN 02/07/21 08:45 02/23/21 10:47 DC Enalaprilat (Vasotec Inj) 0.625 mg Q6HRS 02/08/21 16:15 02/09/21 16:01 DC 02/09/21 13:42 0.625 MG Enoxaparin Sodium (Lovenox 30mg Syringe) 30 mg Q24H 03/08/21 09:00 03/09/21 09:26 30 MG Enoxaparin Sodium (Lovenox 40mg Syringe) 40 mg BID 02/09/21 09:00 03/08/21 13:56 DC 03/08/21 08:26 40 MG Enoxaparin Sodium (Lovenox Per Pharmacy Prophylaxis Dosing) 1 each PRN DAILY PRN 02/09/21 06:45 Famotidine (Pepcid Vial) 20 mg DAILY 03/10/21 09:00 Fentanyl Citrate 30 ml @ 0 mls/hr CONT PRN 02/17/21 10:00 03/10/21 01:50 3.75 MLS/HR Fluconazole/ Sodium Chloride 100 ml @ 100 mls/hr Q24H 03/07/21 09:00 03/09/21 09:28 100 MLS/HR Furosemide (Lasix) 20 mg 1X ONCE 02/16/21 22:15 02/16/21 22:16 DC 02/16/21 22:18 20 MG Glycerin/ Hypromellose/ Polyethylene (Artificial Tears) 1 drop PRN Q1HR PRN 02/17/21 10:00 Guaifenesin (Robitussin Dm) 10 ml PRN Q6HRS PRN 02/10/21 23:30 02/16/21 09:06 10 ML Haloperidol Lactate (Haldol Inj) 2.5 mg 1X ONCE 02/07/21 02:30 02/07/21 03:56 DC Hydralazine HCl (Apresoline Inj) 10 mg PRN Q4HRS PRN 02/11/21 12:15 02/26/21 11:23 10 MG Hydromorphone HCl (Dilaudid) 2 mg PRN Q6HRS PRN 02/09/21 17:15 02/21/21 05:27 DC 02/15/21 22:00 2 MG Info (PHARMACY MONITORING -- do not chart) 1 each PRN DAILY PRN 03/09/21 18:15 Insulin Glargine (Lantus Syringe) 5 unit BID 03/06/21 09:00 03/09/21 21:18 5 UNIT Insulin Human Lispro (HumaLOG) 12 units Q6HRS 02/20/21 12:00 02/28/21 15:38 DC 02/27/21 05:41 12 UNITS Insulin Human Regular 100 ml @ 10 mls/hr 1X ONCE 02/07/21 06:30 02/07/21 16:54 DC 02/07/21 09:31 6.5 MLS/HR Insulin Human Regular 100 unit/ Sodium Chloride 101 ml @ 0 mls/hr CONT PRN PRN 02/07/21 06:00 02/07/21 16:54 DC Labetalol HCl (Normodyne Iv Push) 10 mg PRN Q2HR PRN 02/08/21 00:45 02/17/21 07:19 10 MG Lactobacillus Rhamnosus (Culturelle) 1 cap BID 02/16/21 21:00 02/17/21 10:45 DC 02/16/21 22:02 1 CAP Lidocaine HCl (Buffered Lidocaine 1%) 3 ml STK-MED ONCE 03/07/21 13:25 03/07/21 13:25 DC Linezolid (Zyvox) 600 mg BID 03/05/21 09:00 03/09/21 21:17 600 MG Lisinopril (Prinivil) 20 mg DAILY 02/17/21 09:00 03/09/21 10:43 DC 02/27/21 09:10 20 MG Lorazepam (Ativan Inj) 0.5 mg PRN Q6HRS PRN 02/08/21 10:00 02/16/21 22:07 0.5 MG Methylprednisolone Sodium Succinate (SOLU-Medrol 125MG VIAL) 80 mg Q8HRS 02/25/21 09:00 02/26/21 07:09 DC 02/26/21 05:52 80 MG Metoclopramide HCl (Reglan Vial) 10 mg PRN Q6HRS PRN 02/08/21 00:45 02/12/21 15:51 10 MG Midazolam HCl 100 ml @ 0 mls/hr CONT PRN 02/17/21 10:00 03/09/21 23:48 10 MLS/HR Norepinephrine Bitartrate 8 mg/ Dextrose 258 ml @ 21.711 mls/ hr CONT PRN 03/06/21 13:45 03/09/21 23:25 13.026 MLS/HR Nystatin (Nystop) 1 reji BID 03/02/21 21:00 03/09/21 21:00 1 REJI Ondansetron HCl (Zofran Odt) 4 mg 1X ONCE 02/06/21 23:30 02/06/21 23:31 DC 02/06/21 23:57 4 MG Ondansetron HCl (Zofran) 4 mg 1X ONCE 02/07/21 20:00 02/07/21 20:07 DC 02/07/21 20:06 4 MG Piperacillin Sod/ Tazobactam Sod (Zosyn Per Pharmacy) 1 each PRN DAILY PRN 02/23/21 07:45 Piperacillin Sod/ Tazobactam Sod 2.25 gm/Sodium Chloride 50 ml @ 100 mls/hr Q8HRS 03/07/21 14:00 03/10/21 05:38 100 MLS/HR Piperacillin Sod/ Tazobactam Sod 4.5 gm/Sodium Chloride 100 ml @ 200 mls/hr Q6HRS 02/23/21 08:00 03/07/21 08:18 DC 03/07/21 06:12 200 MLS/HR Potassium Chloride/Water 100 ml @ 100 mls/hr PRN Q1HR PRN 02/07/21 06:00 02/07/21 16:54 DC Potassium Chloride (Klor-Con) 40 meq 1X ONCE 02/13/21 12:00 02/13/21 12:01 DC 02/13/21 13:21 40 MEQ Prochlorperazine Edisylate (Compazine) 10 mg PRN Q6HRS PRN 02/07/21 08:45 02/12/21 10:35 10 MG Propofol 100 ml @ 0 mls/hr CONT PRN 02/17/21 10:00 03/10/21 06:49 18.7 MLS/HR Remdesivir 100 mg/ Sodium Chloride 230 ml @ 460 mls/hr Q24H 02/15/21 12:00 02/18/21 12:29 DC 02/18/21 11:52 460 MLS/HR Remdesivir 200 mg/ Sodium Chloride 210 ml @ 210 mls/hr 1X ONCE 02/11/21 13:00 02/12/21 11:55 DC 02/11/21 14:33 210 MLS/HR Sennosides (Senna) 17.2 mg PRN BID PRN 02/07/21 08:45 02/22/21 08:29 17.2 MG Sodium Chloride 1,000 ml @ 400 mls/hr Q2H30M PRN 03/09/21 18:15 03/10/21 06:14 DC Succinylcholine Chloride (Anectine) 200 mg STK-MED ONCE 02/17/21 10:00 02/25/21 08:40 DC Vancomycin HCl (Vanco Per Pharmacy) 1 each PRN DAILY PRN 03/04/21 18:30 03/05/21 08:59 DC 03/04/21 19:47 1 EACH Vancomycin HCl (Vancomycin Trough Level) 1 each 1X ONCE 03/06/21 07:00 03/06/21 07:01 Cancel Vancomycin HCl 1.5 gm/Sodium Chloride 500 ml @ 250 mls/hr Q12H 03/05/21 07:30 03/05/21 08:58 DC Vancomycin HCl 1 gm/Sodium Chloride 250 ml @ 250 mls/hr Q12H 03/04/21 20:00 UNV Vancomycin HCl 2 gm/Sodium Chloride 500 ml @ 250 mls/hr 1X ONCE 03/04/21 19:00 03/04/21 20:59 DC 03/04/21 19:26 250 MLS/HR Vecuronium [place] (Norcuron Bolus) 6 mg PRN Q2HRS PRN 03/06/21 14:30 03/07/21 13:53 6 MG Vitamin A/Vitamin D (Vitamin A & D Ointment) 1 reji PRN Q1HR PRN 03/10/21 01:45 03/10/21 02:37 1 REJI Lab Laboratory Tests Test 03/09/21 09:05 03/09/21 12:53 03/09/21 17:56 03/09/21 21:47 O2 Saturation 95 % (92-99) Arterial Blood pH 7.28 (7.35-7.45) Arterial Blood pCO2 at Patient Temp 38 mmHg (35-46) Arterial Blood pO2 at Patient Temp 92 mmHg (75-108) Arterial Blood HCO3 17 mmol/L (21-28) Arterial Blood Base Excess -9 mmol/L (-3-3) FiO2 60 Glucose (Fingerstick) 137 mg/dL (70-99) 132 mg/dL (70-99) 107 mg/dL (70-99) Test 03/09/21 23:57 03/10/21 06:08 03/10/21 06:20 03/10/21 07:59 Glucose (Fingerstick) 144 mg/dL (70-99) 153 mg/dL (70-99) White Blood Count 15.0 x10^3/uL (4.0-11.0) Red Blood Count 2.50 x10^6/uL (3.50-5.40) Hemoglobin 7.5 g/dL (12.0-15.5) Hematocrit 21.8 % (36.0-47.0) Mean Corpuscular Volume 88 fL (79-100) Mean Corpuscular Hemoglobin 30 pg (25-35) Mean Corpuscular Hemoglobin Concent 34 g/dL (31-37) Red Cell Distribution Width 13.7 % (11.5-14.5) Platelet Count 175 x10^3/uL (140-400) Neutrophils (%) (Auto) 78 % (31-73) Lymphocytes (%) (Auto) 11 % (24-48) Monocytes (%) (Auto) 4 % (0-9) Eosinophils (%) (Auto) 8 % (0-3) Basophils (%) (Auto) 1 % (0-3) Neutrophils # (Auto) 11.6 x10^3/uL (1.8-7.7) Lymphocytes # (Auto) 1.6 x10^3/uL (1.0-4.8) Monocytes # (Auto) 0.5 x10^3/uL (0.0-1.1) Eosinophils # (Auto) 1.2 x10^3/uL (0.0-0.7) Basophils # (Auto) 0.1 x10^3/uL (0.0-0.2) Sodium Level 131 mmol/L (136-145) Potassium Level 4.2 mmol/L (3.5-5.1) Chloride Level 95 mmol/L (98-107) Carbon Dioxide Level 25 mmol/L (21-32) Anion Gap 11 (6-14) Blood Urea Nitrogen 35 mg/dL (7-20) Creatinine 4.1 mg/dL (0.6-1.0) Estimated GFR (Cockcroft-Gault) 11.8 BUN/Creatinine Ratio 9 (6-20) Glucose Level 182 mg/dL (70-99) Calcium Level 7.9 mg/dL (8.5-10.1) Total Bilirubin 0.6 mg/dL (0.2-1.0) Aspartate Amino Transf (AST/SGOT) 275 U/L (15-37) Alanine Aminotransferase (ALT/SGPT) 188 U/L (14-59) Alkaline Phosphatase 258 U/L (46-116) Total Protein 6.5 g/dL (6.4-8.2) Albumin 1.4 g/dL (3.4-5.0) Albumin/Globulin Ratio 0.3 (1.0-1.7) O2 Saturation 96 % (92-99) Arterial Blood pH 7.36 (7.35-7.45) Arterial Blood pCO2 at Patient Temp 37 mmHg (35-46) Arterial Blood pO2 at Patient Temp 91 mmHg (75-108) Arterial Blood HCO3 20 mmol/L (21-28) Arterial Blood Base Excess -5 mmol/L (-3-3) FiO2 60 Results All relevant outside records, renal labs, imaging studies, telemetry/EKG's were reviewed. Justicifation of Admission Dx: Justifications for Admission: Justification of Admission Dx: N/A GIGI CARMEN MD Mar 10, 2021 09:04
--- NOTE | 2021-03-10 09:47 | NUR ---
SS following up with discharge planning. SS reviewed pt chart and discussed with pt RN. Pt is currently on the vent at 55%. COVID19 positive. Pt on Versed, Precedex, Fentanyl, Propofol, and Levophed. Pt on IV Zosyn and IV Fluconazole. SS will continue to follow for discharge planning.
[2021-03-10] MEDS: FAMOTIDINE 20 MG/2 ML VIAL IVP SCH (10:00)
[2021-03-10] MEDS: DOCUSATE 100 MG/10 ML SOLUTION. PO SCH ×2 (10:00→20:58)
[2021-03-10] MEDS: ENOXAPARIN 30 MG/0.3 ML SYRINGE. SQ SCH (10:01)
[2021-03-10] MEDS: LINEZOLID 600 MG TABLET PO SCH ×2 (10:02→20:58)
[2021-03-10] MEDS: FLUCONAZOLE 200MG/100ML PREMIX 100 ML IV SCH (10:05)
[2021-03-10] MEDS: INSULIN GLARGINE SYRINGE. SQ SCH ×2 (10:13→20:58)
--- NOTE | 2021-03-10 10:51 | PDOC ---
PULMONARY PROGRESS NOTES DATE: 03/10/21 TIME: 10:49 Subjective Patient remains on vent support Oxygen requirement is now improved. sedated on prop versed precedex vec prn levo low dose Vitals Vital Signs Date Time Temp Pulse Resp B/P (MAP) Pulse Ox O2 Delivery O2 Flow Rate FiO2 03/10/21 09:50 100 50.0 03/10/21 09:41 Ventilator 03/10/21 06:00 72 24 104/60 (75) 03/10/21 04:00 99.3 99.3 Comments Visual exam done due to COVID-19. intubated NC AT RRR no accessory muscle use abd obese No skin rash or leg edema. Labs Laboratory Tests Test 03/08/21 11:54 03/08/21 17:45 03/08/21 21:27 03/09/21 00:05 Glucose (Fingerstick) 134 mg/dL (70-99) 125 mg/dL (70-99) 121 mg/dL (70-99) 199 mg/dL (70-99) Test 03/09/21 06:00 03/09/21 09:05 03/09/21 12:53 03/09/21 17:56 White Blood Count 11.4 x10^3/uL (4.0-11.0) Red Blood Count 2.53 x10^6/uL (3.50-5.40) Hemoglobin 7.4 g/dL (12.0-15.5) Hematocrit 22.6 % (36.0-47.0) Mean Corpuscular Volume 89 fL (79-100) Mean Corpuscular Hemoglobin 29 pg (25-35) Mean Corpuscular Hemoglobin Concent 33 g/dL (31-37) Red Cell Distribution Width 14.1 % (11.5-14.5) Platelet Count 188 x10^3/uL (140-400) Neutrophils (%) (Auto) 73 % (31-73) Lymphocytes (%) (Auto) 12 % (24-48) Monocytes (%) (Auto) 5 % (0-9) Eosinophils (%) (Auto) 10 % (0-3) Basophils (%) (Auto) 0 % (0-3) Neutrophils # (Auto) 8.3 x10^3/uL (1.8-7.7) Lymphocytes # (Auto) 1.4 x10^3/uL (1.0-4.8) Monocytes # (Auto) 0.5 x10^3/uL (0.0-1.1) Eosinophils # (Auto) 1.1 x10^3/uL (0.0-0.7) Basophils # (Auto) 0.0 x10^3/uL (0.0-0.2) Segmented Neutrophils % 69 % (35-66) Band Neutrophils % 3 % (0-9) Lymphocytes % 17 % (24-48) Eosinophils % 11 % (0-5) Platelet Estimate Adequate (ADEQUATE) Sodium Level 131 mmol/L (136-145) Potassium Level 4.9 mmol/L (3.5-5.1) Chloride Level 96 mmol/L (98-107) Carbon Dioxide Level 20 mmol/L (21-32) Anion Gap 15 (6-14) Blood Urea Nitrogen 48 mg/dL (7-20) Creatinine 5.1 mg/dL (0.6-1.0) Estimated GFR (Cockcroft-Gault) 9.1 BUN/Creatinine Ratio 9 (6-20) Glucose Level 199 mg/dL (70-99) Glucose (Fingerstick) 174 mg/dL (70-99) 137 mg/dL (70-99) 132 mg/dL (70-99) Calcium Level 7.9 mg/dL (8.5-10.1) Phosphorus Level 7.9 mg/dL (2.6-4.7) Magnesium Level 2.2 mg/dL (1.8-2.4) Total Bilirubin 0.6 mg/dL (0.2-1.0) Aspartate Amino Transf (AST/SGOT) 265 U/L (15-37) Alanine Aminotransferase (ALT/SGPT) 219 U/L (14-59) Alkaline Phosphatase 281 U/L (46-116) Total Protein 6.7 g/dL (6.4-8.2) Albumin 1.1 g/dL (3.4-5.0) Albumin/Globulin Ratio 0.2 (1.0-1.7) O2 Saturation 95 % (92-99) Arterial Blood pH 7.28 (7.35-7.45) Arterial Blood pCO2 at Patient Temp 38 mmHg (35-46) Arterial Blood pO2 at Patient Temp 92 mmHg (75-108) Arterial Blood HCO3 17 mmol/L (21-28) Arterial Blood Base Excess -9 mmol/L (-3-3) FiO2 60 Test 03/09/21 21:47 03/09/21 23:57 03/10/21 06:08 03/10/21 06:20 Glucose (Fingerstick) 107 mg/dL (70-99) 144 mg/dL (70-99) 153 mg/dL (70-99) White Blood Count 15.0 x10^3/uL (4.0-11.0) Red Blood Count 2.50 x10^6/uL (3.50-5.40) Hemoglobin 7.5 g/dL (12.0-15.5) Hematocrit 21.8 % (36.0-47.0) Mean Corpuscular Volume 88 fL (79-100) Mean Corpuscular Hemoglobin 30 pg (25-35) Mean Corpuscular Hemoglobin Concent 34 g/dL (31-37) Red Cell Distribution Width 13.7 % (11.5-14.5) Platelet Count 175 x10^3/uL (140-400) Neutrophils (%) (Auto) 78 % (31-73) Lymphocytes (%) (Auto) 11 % (24-48) Monocytes (%) (Auto) 4 % (0-9) Eosinophils (%) (Auto) 8 % (0-3) Basophils (%) (Auto) 1 % (0-3) Neutrophils # (Auto) 11.6 x10^3/uL (1.8-7.7) Lymphocytes # (Auto) 1.6 x10^3/uL (1.0-4.8) Monocytes # (Auto) 0.5 x10^3/uL (0.0-1.1) Eosinophils # (Auto) 1.2 x10^3/uL (0.0-0.7) Basophils # (Auto) 0.1 x10^3/uL (0.0-0.2) Sodium Level 131 mmol/L (136-145) Potassium Level 4.2 mmol/L (3.5-5.1) Chloride Level 95 mmol/L (98-107) Carbon Dioxide Level 25 mmol/L (21-32) Anion Gap 11 (6-14) Blood Urea Nitrogen 35 mg/dL (7-20) Creatinine 4.1 mg/dL (0.6-1.0) Estimated GFR (Cockcroft-Gault) 11.8 BUN/Creatinine Ratio 9 (6-20) Glucose Level 182 mg/dL (70-99) Calcium Level 7.9 mg/dL (8.5-10.1) Total Bilirubin 0.6 mg/dL (0.2-1.0) Aspartate Amino Transf (AST/SGOT) 275 U/L (15-37) Alanine Aminotransferase (ALT/SGPT) 188 U/L (14-59) Alkaline Phosphatase 258 U/L (46-116) Total Protein 6.5 g/dL (6.4-8.2) Albumin 1.4 g/dL (3.4-5.0) Albumin/Globulin Ratio 0.3 (1.0-1.7) Test 03/10/21 07:59 O2 Saturation 96 % (92-99) Arterial Blood pH 7.36 (7.35-7.45) Arterial Blood pCO2 at Patient Temp 37 mmHg (35-46) Arterial Blood pO2 at Patient Temp 91 mmHg (75-108) Arterial Blood HCO3 20 mmol/L (21-28) Arterial Blood Base Excess -5 mmol/L (-3-3) FiO2 60 Laboratory Tests Test 03/09/21 12:53 03/09/21 17:56 03/09/21 21:47 03/09/21 23:57 Glucose (Fingerstick) 137 mg/dL (70-99) 132 mg/dL (70-99) 107 mg/dL (70-99) 144 mg/dL (70-99) Test 03/10/21 06:08 03/10/21 06:20 03/10/21 07:59 Glucose (Fingerstick) 153 mg/dL (70-99) White Blood Count 15.0 x10^3/uL (4.0-11.0) Red Blood Count 2.50 x10^6/uL (3.50-5.40) Hemoglobin 7.5 g/dL (12.0-15.5) Hematocrit 21.8 % (36.0-47.0) Mean Corpuscular Volume 88 fL (79-100) Mean Corpuscular Hemoglobin 30 pg (25-35) Mean Corpuscular Hemoglobin Concent 34 g/dL (31-37) Red Cell Distribution Width 13.7 % (11.5-14.5) Platelet Count 175 x10^3/uL (140-400) Neutrophils (%) (Auto) 78 % (31-73) Lymphocytes (%) (Auto) 11 % (24-48) Monocytes (%) (Auto) 4 % (0-9) Eosinophils (%) (Auto) 8 % (0-3) Basophils (%) (Auto) 1 % (0-3) Neutrophils # (Auto) 11.6 x10^3/uL (1.8-7.7) Lymphocytes # (Auto) 1.6 x10^3/uL (1.0-4.8) Monocytes # (Auto) 0.5 x10^3/uL (0.0-1.1) Eosinophils # (Auto) 1.2 x10^3/uL (0.0-0.7) Basophils # (Auto) 0.1 x10^3/uL (0.0-0.2) Sodium Level 131 mmol/L (136-145) Potassium Level 4.2 mmol/L (3.5-5.1) Chloride Level 95 mmol/L (98-107) Carbon Dioxide Level 25 mmol/L (21-32) Anion Gap 11 (6-14) Blood Urea Nitrogen 35 mg/dL (7-20) Creatinine 4.1 mg/dL (0.6-1.0) Estimated GFR (Cockcroft-Gault) 11.8 BUN/Creatinine Ratio 9 (6-20) Glucose Level 182 mg/dL (70-99) Calcium Level 7.9 mg/dL (8.5-10.1) Total Bilirubin 0.6 mg/dL (0.2-1.0) Aspartate Amino Transf (AST/SGOT) 275 U/L (15-37) Alanine Aminotransferase (ALT/SGPT) 188 U/L (14-59) Alkaline Phosphatase 258 U/L (46-116) Total Protein 6.5 g/dL (6.4-8.2) Albumin 1.4 g/dL (3.4-5.0) Albumin/Globulin Ratio 0.3 (1.0-1.7) O2 Saturation 96 % (92-99) Arterial Blood pH 7.36 (7.35-7.45) Arterial Blood pCO2 at Patient Temp 37 mmHg (35-46) Arterial Blood pO2 at Patient Temp 91 mmHg (75-108) Arterial Blood HCO3 20 mmol/L (21-28) Arterial Blood Base Excess -5 mmol/L (-3-3) FiO2 60 Medications Active Scripts Medications Dose Route/Sig Max Daily Dose Days Date Category Novolog Flexpen (Insulin Aspart) 100 Unit/1 Ml Insuln.pen 3-7 SQ TIDACHC 02/07/21 Reported Lisinopril 5 Mg Tablet 1 Tab PO DAILY 02/07/21 Reported Lantus Solostar (Insulin Glargine,Hum.rec.anlog) 100 Unit/1 Ml Insuln.pen 5 Unit SQ QHS 04/09/15 Reported Atorvastatin Calcium 40 Mg Tablet 40 Mg PO HS 04/09/15 Reported Comments Chest x-ray reviewed 03/09/2021. Diffuse interstitial infiltrates. No pneumothorax. No significant change cxr 03/06 reviewed 1. Significant interval increase in diffuse pulmonary infiltrate. 2. Stable support lines and tubes. Impression . IMPRESSION: 1. Acute hypoxic respiratory failure secondary to COVID-19 viral pneumonia/acute lung injury and early acute respiratory distress syndrome. S/P intubation 02/17/21,-- worsening hypoxia since 03/05, fever, low BP and BOB, New sepsis and secondary infection. Clinically improving now 2. Nonsmoker. 3. Abnormal chest x-ray consistent with COVID-19 viral pneumonia.--- 4. Diabetic ketoacidosis as initial presentation, currently better.--resolved 5. Underlying obesity contributing to hypoxia as well. 6. BOB worsening hd started 03/07 7. Fever, On broad-spectrum antibiotics. Infectious disease following. Clinically improving 8. Abnormal chest x-ray with diffuse interstitial infiltrates compatible with viral pneumonia Plan . Updated 03/10/2021 Continue current ventilatory support, setting reviewed, on peep 8 fio2 60% titrate peep fio2 as tolerated. ABGs reviewed. Oxygenation has improved. Wean FiO2 as tolerated. levophed to keep map 65. hd started 03/07 per nephro CXR with unchanged diffuse interstitial infiltrates. Follow-up surgery recommendations for tracheostomy. I have discussed with Dr. Arzate. Plan to do tracheostomy next Tuesday. Follow chest x-ray/ABG Follow infectious disease recommendations in regards to antibiotics S/P remdesivir for full course, has also completed full course of steroids Continue tube feeding for nutritional support elevate hob DVT/GI prophylaxis: Alyssanox Discussed with RN and RT Discussed with Dr. Emmanuel. Tracheostomy next Tuesday. critically ill cct 30 min no overlap Updated 03/09/2021 Continue current ventilatory support, setting reviewed, on peep 8 fio2 60% titrate peep fio2 as tolerated. ABGs reviewed. Oxygenation has improved. levophed to keep map 65. hd started 03/07 per nephro CXR with unchanged diffuse interstitial infiltrates. Follow-up surgery recommendations for tracheostomy. I have discussed with Dr. Arzate. For now which is put a hold to tracheostomy until she is more stable. Follow chest x-ray/ABG Follow infectious disease recommendations in regards to antibiotics S/P remdesivir for full course, has also completed full course of steroids Continue tube feeding for nutritional support elevate hob DVT/GI prophylaxis: Lovenox Discussed with RN and RT I have discussed with Dr. Arzate. For now which is put a hold to tracheostomy until she is more stable. critically ill cct 30 min no overlap Updated 03/08/2021 Continue current ventilatory support, setting reviewed, on peep 8 fio2 60% titrate peep fio2 as tolerated levophed to keep map 65. hd started 03/07 per nephro CXR with worsening infiltrates. Follow-up surgery recommendations for tracheostomy. worsening would prob need trach Follow chest x-ray/ABG Follow infectious disease recommendations in regards to antibiotics S/P remdesivir for full course, has also completed full course of steroids Continue tube feeding for nutritional support elevate hob DVT/GI prophylaxis: Lovenox Discussed with RN and RT critically ill cct 30 min no overlap Updated 03/07/2021 Continue current ventilatory support, setting reviewed, will increase peep to 7 abg reviewed will increase peep to 8 rr to 24 levophed to keep map 65. Monitor renal function closely. cr 4.2 today renal consulted they will start dialysis today Oxygen requirement has increased. CXR with worsening infiltrates., no CHF Follow-up surgery recommendations for tracheostomy. Follow chest x-ray/ABG Follow infectious disease recommendations in regards to antibiotics S/P remdesivir for full course, has also completed full course of steroids Continue tube feeding for nutritional support DVT/GI prophylaxis: Lovenox Discussed with RN and RT critically ill cct 30 min no overlap Updated 03/06/2021 Continue current ventilatory support 18/450/55/5, Oxygen requirement has increased. CXR with worsening infiltrates., no CHF pt. still unable to tolerate sedation vacation/weaning trial. will hold further trials till clinically better Follow-up surgery recommendations for tracheostomy. May have to hold for now Follow chest x-ray/ABG Follow infectious disease recommendations in regards to antibiotics IVF bolus and low dose levophed. Monitor renal function closely. consult renal S/P remdesivir for full course, has also completed full course of steroids Continue tube feeding for nutritional support DVT/GI prophylaxis: Lovenox Discussed with RN and RT Critical care time 30 minutes addend: cxr with increase interstitial infiltrates c/w COVID Updated 03/05/2021 Continue current ventilatory support 18/450/40/5, pt. still unable to tolerate sedation vacation/weaning trial Follow-up surgery recommendations for tracheostomy Follow chest x-ray/ABG as needed--marginal PO2 no room for weaning Follow infectious disease recommendations in regards to antibiotics S/P remdesivir for full course, has also completed full course of steroids Continue tube feeding for nutritional support DVT/GI prophylaxis: Lovenox Discussed with RN and R Critical care time 30 minutes EMILY POSADA MD Mar 10, 2021 10:51
[2021-03-10] MEDS: MIDAZOLAM 100mg/100ml NS BAG 100 ML IV PRN ×2 (11:16→21:54)
[2021-03-10] MEDS: NOREPINEPHRINE VIAL 8 MG in IV DEXTROSE 5% 250 ML IV PRN (16:30)
--- NOTE | 2021-03-10 19:04 | PDOC ---
SURGICAL PROGRESS NOTE DATE: 03/10/21 TIME: 19:03 Subjective Pt intubated, clinically improved Vital Signs Vital Signs Date Time Temp Pulse Resp B/P (MAP) Pulse Ox O2 Delivery O2 Flow Rate FiO2 03/10/21 18:00 78 26 130/70 (90) 98 Ventilator 03/10/21 17:36 50.0 03/10/21 16:00 99.3 99.3 I&O Intake and Output 03/10/21 07:00 Intake Total 4474.62 ml Output Total 15 ml Balance 4459.62 ml IV Total 1700.62 ml Tube Feeding 2204 ml Other 570 ml Output Urine Total 15 ml General: No acute distress HEENT: Other (orally intubated) Labs Laboratory Tests Test 03/08/21 21:27 03/09/21 00:05 03/09/21 06:00 03/09/21 09:05 Glucose (Fingerstick) 121 mg/dL (70-99) 199 mg/dL (70-99) 174 mg/dL (70-99) White Blood Count 11.4 x10^3/uL (4.0-11.0) Red Blood Count 2.53 x10^6/uL (3.50-5.40) Hemoglobin 7.4 g/dL (12.0-15.5) Hematocrit 22.6 % (36.0-47.0) Mean Corpuscular Volume 89 fL (79-100) Mean Corpuscular Hemoglobin 29 pg (25-35) Mean Corpuscular Hemoglobin Concent 33 g/dL (31-37) Red Cell Distribution Width 14.1 % (11.5-14.5) Platelet Count 188 x10^3/uL (140-400) Neutrophils (%) (Auto) 73 % (31-73) Lymphocytes (%) (Auto) 12 % (24-48) Monocytes (%) (Auto) 5 % (0-9) Eosinophils (%) (Auto) 10 % (0-3) Basophils (%) (Auto) 0 % (0-3) Neutrophils # (Auto) 8.3 x10^3/uL (1.8-7.7) Lymphocytes # (Auto) 1.4 x10^3/uL (1.0-4.8) Monocytes # (Auto) 0.5 x10^3/uL (0.0-1.1) Eosinophils # (Auto) 1.1 x10^3/uL (0.0-0.7) Basophils # (Auto) 0.0 x10^3/uL (0.0-0.2) Segmented Neutrophils % 69 % (35-66) Band Neutrophils % 3 % (0-9) Lymphocytes % 17 % (24-48) Eosinophils % 11 % (0-5) Platelet Estimate Adequate (ADEQUATE) Sodium Level 131 mmol/L (136-145) Potassium Level 4.9 mmol/L (3.5-5.1) Chloride Level 96 mmol/L (98-107) Carbon Dioxide Level 20 mmol/L (21-32) Anion Gap 15 (6-14) Blood Urea Nitrogen 48 mg/dL (7-20) Creatinine 5.1 mg/dL (0.6-1.0) Estimated GFR (Cockcroft-Gault) 9.1 BUN/Creatinine Ratio 9 (6-20) Glucose Level 199 mg/dL (70-99) Calcium Level 7.9 mg/dL (8.5-10.1) Phosphorus Level 7.9 mg/dL (2.6-4.7) Magnesium Level 2.2 mg/dL (1.8-2.4) Total Bilirubin 0.6 mg/dL (0.2-1.0) Aspartate Amino Transf (AST/SGOT) 265 U/L (15-37) Alanine Aminotransferase (ALT/SGPT) 219 U/L (14-59) Alkaline Phosphatase 281 U/L (46-116) Total Protein 6.7 g/dL (6.4-8.2) Albumin 1.1 g/dL (3.4-5.0) Albumin/Globulin Ratio 0.2 (1.0-1.7) O2 Saturation 95 % (92-99) Arterial Blood pH 7.28 (7.35-7.45) Arterial Blood pCO2 at Patient Temp 38 mmHg (35-46) Arterial Blood pO2 at Patient Temp 92 mmHg (75-108) Arterial Blood HCO3 17 mmol/L (21-28) Arterial Blood Base Excess -9 mmol/L (-3-3) FiO2 60 Test 03/09/21 12:53 03/09/21 17:56 03/09/21 21:47 03/09/21 23:57 Glucose (Fingerstick) 137 mg/dL (70-99) 132 mg/dL (70-99) 107 mg/dL (70-99) 144 mg/dL (70-99) Test 03/10/21 06:08 03/10/21 06:20 03/10/21 07:59 03/10/21 13:15 Glucose (Fingerstick) 153 mg/dL (70-99) 180 mg/dL (70-99) White Blood Count 15.0 x10^3/uL (4.0-11.0) Red Blood Count 2.50 x10^6/uL (3.50-5.40) Hemoglobin 7.5 g/dL (12.0-15.5) Hematocrit 21.8 % (36.0-47.0) Mean Corpuscular Volume 88 fL (79-100) Mean Corpuscular Hemoglobin 30 pg (25-35) Mean Corpuscular Hemoglobin Concent 34 g/dL (31-37) Red Cell Distribution Width 13.7 % (11.5-14.5) Platelet Count 175 x10^3/uL (140-400) Neutrophils (%) (Auto) 78 % (31-73) Lymphocytes (%) (Auto) 11 % (24-48) Monocytes (%) (Auto) 4 % (0-9) Eosinophils (%) (Auto) 8 % (0-3) Basophils (%) (Auto) 1 % (0-3) Neutrophils # (Auto) 11.6 x10^3/uL (1.8-7.7) Lymphocytes # (Auto) 1.6 x10^3/uL (1.0-4.8) Monocytes # (Auto) 0.5 x10^3/uL (0.0-1.1) Eosinophils # (Auto) 1.2 x10^3/uL (0.0-0.7) Basophils # (Auto) 0.1 x10^3/uL (0.0-0.2) Sodium Level 131 mmol/L (136-145) Potassium Level 4.2 mmol/L (3.5-5.1) Chloride Level 95 mmol/L (98-107) Carbon Dioxide Level 25 mmol/L (21-32) Anion Gap 11 (6-14) Blood Urea Nitrogen 35 mg/dL (7-20) Creatinine 4.1 mg/dL (0.6-1.0) Estimated GFR (Cockcroft-Gault) 11.8 BUN/Creatinine Ratio 9 (6-20) Glucose Level 182 mg/dL (70-99) Calcium Level 7.9 mg/dL (8.5-10.1) Total Bilirubin 0.6 mg/dL (0.2-1.0) Aspartate Amino Transf (AST/SGOT) 275 U/L (15-37) Alanine Aminotransferase (ALT/SGPT) 188 U/L (14-59) Alkaline Phosphatase 258 U/L (46-116) Total Protein 6.5 g/dL (6.4-8.2) Albumin 1.4 g/dL (3.4-5.0) Albumin/Globulin Ratio 0.3 (1.0-1.7) O2 Saturation 96 % (92-99) Arterial Blood pH 7.36 (7.35-7.45) Arterial Blood pCO2 at Patient Temp 37 mmHg (35-46) Arterial Blood pO2 at Patient Temp 91 mmHg (75-108) Arterial Blood HCO3 20 mmol/L (21-28) Arterial Blood Base Excess -5 mmol/L (-3-3) FiO2 60 Test 03/10/21 17:20 Glucose (Fingerstick) 141 mg/dL (70-99) Laboratory Tests Test 03/09/21 21:47 03/09/21 23:57 03/10/21 06:08 03/10/21 06:20 Glucose (Fingerstick) 107 mg/dL (70-99) 144 mg/dL (70-99) 153 mg/dL (70-99) White Blood Count 15.0 x10^3/uL (4.0-11.0) Red Blood Count 2.50 x10^6/uL (3.50-5.40) Hemoglobin 7.5 g/dL (12.0-15.5) Hematocrit 21.8 % (36.0-47.0) Mean Corpuscular Volume 88 fL (79-100) Mean Corpuscular Hemoglobin 30 pg (25-35) Mean Corpuscular Hemoglobin Concent 34 g/dL (31-37) Red Cell Distribution Width 13.7 % (11.5-14.5) Platelet Count 175 x10^3/uL (140-400) Neutrophils (%) (Auto) 78 % (31-73) Lymphocytes (%) (Auto) 11 % (24-48) Monocytes (%) (Auto) 4 % (0-9) Eosinophils (%) (Auto) 8 % (0-3) Basophils (%) (Auto) 1 % (0-3) Neutrophils # (Auto) 11.6 x10^3/uL (1.8-7.7) Lymphocytes # (Auto) 1.6 x10^3/uL (1.0-4.8) Monocytes # (Auto) 0.5 x10^3/uL (0.0-1.1) Eosinophils # (Auto) 1.2 x10^3/uL (0.0-0.7) Basophils # (Auto) 0.1 x10^3/uL (0.0-0.2) Sodium Level 131 mmol/L (136-145) Potassium Level 4.2 mmol/L (3.5-5.1) Chloride Level 95 mmol/L (98-107) Carbon Dioxide Level 25 mmol/L (21-32) Anion Gap 11 (6-14) Blood Urea Nitrogen 35 mg/dL (7-20) Creatinine 4.1 mg/dL (0.6-1.0) Estimated GFR (Cockcroft-Gault) 11.8 BUN/Creatinine Ratio 9 (6-20) Glucose Level 182 mg/dL (70-99) Calcium Level 7.9 mg/dL (8.5-10.1) Total Bilirubin 0.6 mg/dL (0.2-1.0) Aspartate Amino Transf (AST/SGOT) 275 U/L (15-37) Alanine Aminotransferase (ALT/SGPT) 188 U/L (14-59) Alkaline Phosphatase 258 U/L (46-116) Total Protein 6.5 g/dL (6.4-8.2) Albumin 1.4 g/dL (3.4-5.0) Albumin/Globulin Ratio 0.3 (1.0-1.7) Test 03/10/21 07:59 03/10/21 13:15 03/10/21 17:20 O2 Saturation 96 % (92-99) Arterial Blood pH 7.36 (7.35-7.45) Arterial Blood pCO2 at Patient Temp 37 mmHg (35-46) Arterial Blood pO2 at Patient Temp 91 mmHg (75-108) Arterial Blood HCO3 20 mmol/L (21-28) Arterial Blood Base Excess -5 mmol/L (-3-3) FiO2 60 Glucose (Fingerstick) 180 mg/dL (70-99) 141 mg/dL (70-99) Problem List Problems Medical Problems: (1) Ketoacidosis Status: Acute Assessment/Plan Will tentatively plan trach on 03/17 if continued improvement d/w pulm Justicifation of Admission Dx: Justifications for Admission: Justification of Admission Dx: N/A DANIEL ACHARYA MD Mar 10, 2021 19:04
[2021-03-10] MEDS: ATORVASTATIN CALCIUM 40 MG TABLET. PO SCH (20:58)
[2021-03-11] VITALS (32 sets, daily range): BP systolic 76–160; BP diastolic 48–101
[2021-03-11] MEDS: INSULIN LISPRO 300 UNITS/3 ML VIAL. SQ SCH ×5 (00:33→23:45)
[2021-03-11] MEDS: DEXMEDETOMIDINE 400 MCG in IV NORMAL SALINE 100ML 96 ML IV PRN ×7 (00:58→23:59)
[2021-03-11] MEDS: PROPOFOL 100 ML IV PRN ×3 (05:24→21:00)
[2021-03-11] MEDS: PIPERACILLIN/TAZOBACTAM 2.25 GM in IV NORMAL SALINE 50ML 50 ML IV SCH ×3 (05:24→22:26)
[2021-03-11 06:18] LABS: BASO # 0.1 x10^3/uL (0.0-0.2); BASO % 1 % (0-3); EOS # 1.9 x10^3/uL (0.0-0.7); EOS % 12 % (0-3); HEMATOCRIT 24.9 % (36.0-47.0); HEMOGLOBIN 8.1 g/dL (12.0-15.5); LYMPH # 1.4 x10^3/uL (1.0-4.8); LYMPH % 9 % (24-48); MEAN CORPUSCULAR HEMOGLOBIN 29 pg (25-35); MEAN CORPUSCULAR HGB CONC 33 g/dL (31-37); MEAN CORPUSCULAR VOLUME 88 fL (79-100); MONO # 0.5 x10^3/uL (0.0-1.1); MONO % 3 % (0-9); NEUT # 12.7 x10^3/uL (1.8-7.7); NEUT % 76 % (31-73); PLATELET COUNT 188 x10^3/uL (140-400); RED BLOOD COUNT 2.83 x10^6/uL (3.50-5.40); RED CELL DISTRIBUTION WIDTH 14.2 % (11.5-14.5); WHITE BLOOD COUNT 16.7 x10^3/uL (4.0-11.0)
[2021-03-11 06:32] LABS: ALBUMIN 1.3 g/dL (3.4-5.0); CALCIUM 8.1 mg/dL (8.5-10.1); CREATININE 5.1 mg/dL (0.6-1.0); GFR 9.1; PHOSPHORUS 5.2 mg/dL (2.6-4.7); POTASSIUM 3.7 mmol/L (3.5-5.1)
[2021-03-11 07:50] LABS: BASE EXCESS ABG -7 mmol/L (-3-3); HCO3 ABG 18 mmol/L (21-28); PCO2 ABG 37 mmHg (35-46); PO2 ABG 79 mmHg (75-108); SAT O2 ABG 94 % (92-99)
[2021-03-11 07:52] LABS: FIO2 ABG 55
--- NOTE | 2021-03-11 08:03 | PDOC ---
Infectious Disease Note Subjective Subjective Pt intubated Fever pattern improved ROS ROS No nausea vomiting diarrhea Vital Sign Vital Signs Vital Signs Date Time Temp Pulse Resp B/P (MAP) Pulse Ox O2 Delivery O2 Flow Rate FiO2 03/11/21 07:31 95 Ventilator 03/11/21 07:00 64 24 103/63 (76) 03/11/21 04:00 98.7 98.7 03/10/21 17:36 50.0 Physical Exam PHYSICAL EXAM GENERAL: Intubated and sedated. HEENT: Normocephalic, atraumatic. Anicteric. Neck right IJ HDC clean LUNGS: Rhonchi. HEART: S1, S2. No murmurs. ABDOMEN: Obese, soft. Bowel sounds present. Nontender, nondistended. GENITOURINARY: Abbasi and fecal tube in place. EXTREMITIES: Edema present no cyanosis. CENTRAL NERVOUS SYSTEM: Intubated. PSYCHIATRIC: Unable to assess. Derm has pressure wounds wound pictures noted in chart. Generalized rash, PICC line , right IJ HDC clean Labs Lab Laboratory Tests Test 03/10/21 13:15 03/10/21 17:20 03/10/21 21:02 03/11/21 00:25 Glucose (Fingerstick) 180 mg/dL (70-99) 141 mg/dL (70-99) 173 mg/dL (70-99) 173 mg/dL (70-99) Test 03/11/21 05:45 03/11/21 05:53 03/11/21 07:30 White Blood Count 16.7 x10^3/uL (4.0-11.0) Red Blood Count 2.83 x10^6/uL (3.50-5.40) Hemoglobin 8.1 g/dL (12.0-15.5) Hematocrit 24.9 % (36.0-47.0) Mean Corpuscular Volume 88 fL (79-100) Mean Corpuscular Hemoglobin 29 pg (25-35) Mean Corpuscular Hemoglobin Concent 33 g/dL (31-37) Red Cell Distribution Width 14.2 % (11.5-14.5) Platelet Count 188 x10^3/uL (140-400) Neutrophils (%) (Auto) 76 % (31-73) Lymphocytes (%) (Auto) 9 % (24-48) Monocytes (%) (Auto) 3 % (0-9) Eosinophils (%) (Auto) 12 % (0-3) Basophils (%) (Auto) 1 % (0-3) Neutrophils # (Auto) 12.7 x10^3/uL (1.8-7.7) Lymphocytes # (Auto) 1.4 x10^3/uL (1.0-4.8) Monocytes # (Auto) 0.5 x10^3/uL (0.0-1.1) Eosinophils # (Auto) 1.9 x10^3/uL (0.0-0.7) Basophils # (Auto) 0.1 x10^3/uL (0.0-0.2) Sodium Level 130 mmol/L (136-145) Potassium Level 3.7 mmol/L (3.5-5.1) Chloride Level 93 mmol/L (98-107) Carbon Dioxide Level 22 mmol/L (21-32) Anion Gap 15 (6-14) Blood Urea Nitrogen 46 mg/dL (7-20) Creatinine 5.1 mg/dL (0.6-1.0) Estimated GFR (Cockcroft-Gault) 9.1 Glucose Level 193 mg/dL (70-99) Calcium Level 8.1 mg/dL (8.5-10.1) Phosphorus Level 5.2 mg/dL (2.6-4.7) Albumin 1.3 g/dL (3.4-5.0) Glucose (Fingerstick) 180 mg/dL (70-99) O2 Saturation 94 % (92-99) Arterial Blood pH 7.31 (7.35-7.45) Arterial Blood pCO2 at Patient Temp 37 mmHg (35-46) Arterial Blood pO2 at Patient Temp 79 mmHg (75-108) Arterial Blood HCO3 18 mmol/L (21-28) Arterial Blood Base Excess -7 mmol/L (-3-3) FiO2 55 Micro Microbiology 03/04/21 Gram Stain Evaluation - Final, Complete 03/04/21 Respiratory Culture - Final, Complete 03/04/21 Urine Culture - Final, Complete 03/04/21 Blood Culture - Preliminary, Resulted NO GROWTH AFTER 4 DAYS Objective Assessment 1. Febrile illness. 2. COVID-19 infection present on date of admission, 02/06/2021. Status post remdesivir, dexamethasone. 3. Acute hypoxic respiratory failure, status post intubation. Trach cultures positive for [place] albicans 4. Diabetes. 5. Diarrhea. 6. Hypertension. 7. Hyperlipidemia. 8. Anemia. 9. BOB on HD 10.UC [place], ua neg Plan Plan of Care Continue Zosyn, renal dosing, Zyvox. Continue fluconazole renal dosing 03/07 Follow-up lab ,cultures, C. diff PCR negative Change abbasi if not done already. Wound care per wound treatment Offload Continue supportive care. Critically ill. Prognosis guarded. D/W BLANCA CURIEL MD Mar 11, 2021 08:03
[2021-03-11] MEDS ORDERED: 0.9 % SODIUM CHLORIDE 10 ML DISP.SYRIN. IV PRN ×2 (08:15)
[2021-03-11] MEDS ORDERED: ALBUMIN HUMAN 25% 200 ML IV PRN (08:15)
[2021-03-11] MEDS ORDERED: IV NORMAL SALINE 1000ML BAG 1,000 ML IV PRN ×2 (08:15)
[2021-03-11] MEDS ORDERED: DIALYSIS PATIENT. MC PRN ×2 (08:15)
[2021-03-11] MEDS: MIDAZOLAM 100mg/100ml NS BAG 100 ML IV PRN ×2 (08:32→20:28)
[2021-03-11] MEDS: NYSTATIN TOPICAL POWDER 15GM BOTTLE. TP SCH ×2 (09:00→20:33)
--- NOTE | 2021-03-11 09:07 | PDOC ---
DATE OF SERVICE DATE: 03/11/21 TIME: 09:03 SUBJECTIVE ROS Intubated on MV OBJECTIVE Vital Signs Vital Signs Date Time Temp Pulse Resp B/P (MAP) Pulse Ox O2 Delivery O2 Flow Rate FiO2 03/11/21 08:14 Ventilator 03/11/21 08:00 98.9 63 24 137/77 (97) 95 98.9 03/10/21 17:36 50.0 I & 0 Intake and Output 03/11/21 07:00 Intake Total 4876 ml Output Total 915 ml Balance 3961 ml IV Total 1875 ml Tube Feeding 2231 ml Other 770 ml Output Urine Total 15 ml Stool Total 900 ml PHYSICAL EXAM Physical Exam GENERAL: Intubated and sedated. HEENT: Anicteric.Intubated Neck right IJ HDC LUNGS: decreased at bases HEART: S1, S2. No murmurs. ABDOMEN: Obese, soft. Bowel sounds present. GENITOURINARY: Kern and rectal tube in place. EXTREMITIES: Edema present no cyanosis. CENTRAL NERVOUS SYSTEM: Intubated. PSYCHIATRIC: Unable to assess. Derm has pressure wounds wound DIAGNOSIS/ASSESSMENT Assessment & Plan BOB-ATN- anuric , requiring dialysis., currently on MWF schedule, dialysis today, discussed treatment plan with Rene Supportive care, I/O avoid nephrotoxins, Monitor for recovery Hematuria - ? Kern sample HypoNatremia - mild DM 2 - Glucosuria + POA Metab and Resp Acidosis COVID 19 Pneumonia - Unvaccinated Acute Resp Failure- Intubated Diffuse infiltrates with little change. HTN BP low Anemia -avoid DOYLE 2/2 to Thrombogenic state COMMENT/RELEVANT DATA Meds Current Medications Medications (Trade) Dose Ordered Sig/Pepe Start Time Stop Time Status Last Admin Dose Admin Acetaminophen (Tylenol Supp) 650 mg PRN Q6HRS PRN 02/08/21 01:45 02/17/21 10:45 DC Acetaminophen (Tylenol) 650 mg PRN Q6HRS PRN 02/17/21 10:45 03/08/21 21:43 650 MG Albumin Human 200 ml @ 200 mls/hr 1X PRN PRN 03/11/21 08:15 03/11/21 14:14 Alteplase, Recombinant (Cathflo For Central Catheter Clearance) 1 mg 1X ONCE 02/27/21 14:30 02/27/21 14:36 DC 02/27/21 15:19 1 MG Alteplase, Recombinant (Cathflo) 2 mg 1X ONCE 02/27/21 11:00 02/27/21 11:01 DC 02/27/21 11:20 2 MG Amlodipine Besylate (Norvasc) 5 mg DAILY 02/24/21 09:00 03/09/21 10:43 DC 02/27/21 09:10 5 MG Atorvastatin Calcium (Lipitor) 40 mg HS 02/08/21 21:00 03/10/21 20:58 40 MG Atropine Sulfate (ATROPINE 0.5mg SYRINGE) 0.5 mg PRN Q5MIN PRN 02/16/21 12:00 Azithromycin 250 mg/Sodium Chloride 250 ml @ 250 mls/hr Q24H 02/14/21 13:30 02/18/21 14:29 DC 02/18/21 11:51 250 MLS/HR Benzonatate (Tessalon Perle) 100 mg [id number] 02/10/21 23:30 02/17/21 10:45 DC 02/16/21 22:07 100 MG Carvedilol (Coreg) 6.25 mg [id number] 02/08/21 20:30 02/23/21 15:50 DC 02/23/21 08:06 6.25 MG Ceftriaxone Sodium (Rocephin) 1 gm Q24H 02/14/21 13:00 02/23/21 07:34 DC 02/22/21 12:42 1 GM Dexamethasone Sodium Phosphate (Decadron) 2 mg 1X ONCE 02/27/21 09:00 02/26/21 07:15 DC Dexmedetomidine HCl 400 mcg/ Sodium Chloride 100 ml @ 0 mls/hr CONT PRN 02/27/21 09:45 03/11/21 08:31 26 MLS/HR Dextrose (Dextrose 50%-Water Syringe) 12.5 gm PRN Q15MIN PRN 03/01/21 13:00 03/01/21 12:55 12.5 GM Docusate Sodium (Colace Solution) 100 mg BID 02/23/21 12:00 03/10/21 10:00 100 MG Docusate Sodium (Colace) 100 mg PRN DAILY PRN 02/07/21 08:45 02/23/21 10:47 DC Enalaprilat (Vasotec Inj) 0.625 mg Q6HRS 02/08/21 16:15 02/09/21 16:01 DC 02/09/21 13:42 0.625 MG Enoxaparin Sodium (Lovenox 30mg Syringe) 30 mg Q24H 03/08/21 09:00 03/10/21 10:01 30 MG Enoxaparin Sodium (Lovenox 40mg Syringe) 40 mg BID 02/09/21 09:00 03/08/21 13:56 DC 03/08/21 08:26 40 MG Enoxaparin Sodium (Lovenox Per Pharmacy Prophylaxis Dosing) 1 each PRN DAILY PRN 02/09/21 06:45 Famotidine (Pepcid Vial) 20 mg DAILY 03/10/21 09:00 03/10/21 10:00 20 MG Fentanyl Citrate 30 ml @ 0 mls/hr CONT PRN 02/17/21 10:00 03/11/21 08:14 3.75 MLS/HR Fluconazole/ Sodium Chloride 100 ml @ 100 mls/hr Q24H 03/07/21 09:00 03/10/21 10:05 100 MLS/HR Furosemide (Lasix) 20 mg 1X ONCE 02/16/21 22:15 02/16/21 22:16 DC 02/16/21 22:18 20 MG Glycerin/ Hypromellose/ Polyethylene (Artificial Tears) 1 drop PRN Q1HR PRN 02/17/21 10:00 Guaifenesin (Robitussin Dm) 10 ml PRN Q6HRS PRN 02/10/21 23:30 02/16/21 09:06 10 ML Haloperidol Lactate (Haldol Inj) 2.5 mg 1X ONCE 02/07/21 02:30 02/07/21 03:56 DC Hydralazine HCl (Apresoline Inj) 10 mg PRN Q4HRS PRN 02/11/21 12:15 02/26/21 11:23 10 MG Hydromorphone HCl (Dilaudid) 2 mg PRN Q6HRS PRN 02/09/21 17:15 02/21/21 05:27 DC 02/15/21 22:00 2 MG Info (PHARMACY MONITORING -- do not chart) 1 each PRN DAILY PRN 03/11/21 08:15 Insulin Glargine (Lantus Syringe) 5 unit BID 03/06/21 09:00 03/10/21 20:58 5 UNIT Insulin Human Lispro (HumaLOG) 12 units Q6HRS 02/20/21 12:00 02/28/21 15:38 DC 02/27/21 05:41 12 UNITS Insulin Human Regular 100 ml @ 10 mls/hr 1X ONCE 02/07/21 06:30 02/07/21 16:54 DC 02/07/21 09:31 6.5 MLS/HR Insulin Human Regular 100 unit/ Sodium Chloride 101 ml @ 0 mls/hr CONT PRN PRN 02/07/21 06:00 02/07/21 16:54 DC Labetalol HCl (Normodyne Iv Push) 10 mg PRN Q2HR PRN 02/08/21 00:45 02/17/21 07:19 10 MG Lactobacillus Rhamnosus (Culturelle) 1 cap BID 02/16/21 21:00 02/17/21 10:45 DC 02/16/21 22:02 1 CAP Lidocaine HCl (Buffered Lidocaine 1%) 3 ml STK-MED ONCE 03/07/21 13:25 03/07/21 13:25 DC Linezolid (Zyvox) 600 mg BID 03/05/21 09:00 03/10/21 20:58 600 MG Lisinopril (Prinivil) 20 mg DAILY 02/17/21 09:00 03/09/21 10:43 DC 02/27/21 09:10 20 MG Lorazepam (Ativan Inj) 0.5 mg PRN Q6HRS PRN 02/08/21 10:00 02/16/21 22:07 0.5 MG Methylprednisolone Sodium Succinate (SOLU-Medrol 125MG VIAL) 80 mg Q8HRS 02/25/21 09:00 02/26/21 07:09 DC 02/26/21 05:52 80 MG Metoclopramide HCl (Reglan Vial) 10 mg PRN Q6HRS PRN 02/08/21 00:45 02/12/21 15:51 10 MG Midazolam HCl 100 ml @ 0 mls/hr CONT PRN 02/17/21 10:00 03/11/21 08:32 10 MLS/HR Norepinephrine Bitartrate 8 mg/ Dextrose 258 ml @ 21.711 mls/ hr CONT PRN 03/06/21 13:45 03/10/21 16:30 13.7 MLS/HR Nystatin (Nystop) 1 reji BID 03/02/21 21:00 03/10/21 20:59 1 REJI Ondansetron HCl (Zofran Odt) 4 mg 1X ONCE 02/06/21 23:30 02/06/21 23:31 DC 02/06/21 23:57 4 MG Ondansetron HCl (Zofran) 4 mg 1X ONCE 02/07/21 20:00 02/07/21 20:07 DC 02/07/21 20:06 4 MG Piperacillin Sod/ Tazobactam Sod (Zosyn Per Pharmacy) 1 each PRN DAILY PRN 02/23/21 07:45 Piperacillin Sod/ Tazobactam Sod 2.25 gm/Sodium Chloride 50 ml @ 100 mls/hr Q8HRS 03/07/21 14:00 03/11/21 05:24 100 MLS/HR Piperacillin Sod/ Tazobactam Sod 4.5 gm/Sodium Chloride 100 ml @ 200 mls/hr Q6HRS 02/23/21 08:00 03/07/21 08:18 DC 03/07/21 06:12 200 MLS/HR Potassium Chloride/Water 100 ml @ 100 mls/hr PRN Q1HR PRN 02/07/21 06:00 02/07/21 16:54 DC Potassium Chloride (Klor-Con) 40 meq 1X ONCE 02/13/21 12:00 02/13/21 12:01 DC 02/13/21 13:21 40 MEQ Prochlorperazine Edisylate (Compazine) 10 mg PRN Q6HRS PRN 02/07/21 08:45 02/12/21 10:35 10 MG Propofol 100 ml @ 0 mls/hr CONT PRN 02/17/21 10:00 03/11/21 05:24 12.5 MLS/HR Remdesivir 100 mg/ Sodium Chloride 230 ml @ 460 mls/hr Q24H 02/15/21 12:00 02/18/21 12:29 DC 02/18/21 11:52 460 MLS/HR Remdesivir 200 mg/ Sodium Chloride 210 ml @ 210 mls/hr 1X ONCE 02/11/21 13:00 02/12/21 11:55 DC 02/11/21 14:33 210 MLS/HR Sennosides (Senna) 17.2 mg PRN BID PRN 02/07/21 08:45 02/22/21 08:29 17.2 MG Sodium Chloride 1,000 ml @ 400 mls/hr Q2H30M PRN 03/11/21 08:15 03/11/21 20:14 Sodium Chloride (Normal Saline Flush) 10 ml 1X PRN PRN 03/11/21 08:15 03/12/21 08:14 Succinylcholine Chloride (Anectine) 200 mg STK-MED ONCE 02/17/21 10:00 02/25/21 08:40 DC Vancomycin HCl (Vanco Per Pharmacy) 1 each PRN DAILY PRN 03/04/21 18:30 03/05/21 08:59 DC 03/04/21 19:47 1 EACH Vancomycin HCl (Vancomycin Trough Level) 1 each 1X ONCE 03/06/21 07:00 03/06/21 07:01 Cancel Vancomycin HCl 1.5 gm/Sodium Chloride 500 ml @ 250 mls/hr Q12H 03/05/21 07:30 03/05/21 08:58 DC Vancomycin HCl 1 gm/Sodium Chloride 250 ml @ 250 mls/hr Q12H 03/04/21 20:00 UNV Vancomycin HCl 2 gm/Sodium Chloride 500 ml @ 250 mls/hr 1X ONCE 03/04/21 19:00 03/04/21 20:59 DC 03/04/21 19:26 250 MLS/HR Vecuronium [place] (Norcuron Bolus) 6 mg PRN Q2HRS PRN 03/06/21 14:30 03/07/21 13:53 6 MG Vitamin A/Vitamin D (Vitamin A & D Ointment) 1 reji PRN Q1HR PRN 03/10/21 01:45 03/10/21 20:59 1 REJI Lab Laboratory Tests Test 03/10/21 13:15 03/10/21 17:20 03/10/21 21:02 03/11/21 00:25 Glucose (Fingerstick) 180 mg/dL (70-99) 141 mg/dL (70-99) 173 mg/dL (70-99) 173 mg/dL (70-99) Test 03/11/21 05:45 03/11/21 05:53 03/11/21 07:30 White Blood Count 16.7 x10^3/uL (4.0-11.0) Red Blood Count 2.83 x10^6/uL (3.50-5.40) Hemoglobin 8.1 g/dL (12.0-15.5) Hematocrit 24.9 % (36.0-47.0) Mean Corpuscular Volume 88 fL (79-100) Mean Corpuscular Hemoglobin 29 pg (25-35) Mean Corpuscular Hemoglobin Concent 33 g/dL (31-37) Red Cell Distribution Width 14.2 % (11.5-14.5) Platelet Count 188 x10^3/uL (140-400) Neutrophils (%) (Auto) 76 % (31-73) Lymphocytes (%) (Auto) 9 % (24-48) Monocytes (%) (Auto) 3 % (0-9) Eosinophils (%) (Auto) 12 % (0-3) Basophils (%) (Auto) 1 % (0-3) Neutrophils # (Auto) 12.7 x10^3/uL (1.8-7.7) Lymphocytes # (Auto) 1.4 x10^3/uL (1.0-4.8) Monocytes # (Auto) 0.5 x10^3/uL (0.0-1.1) Eosinophils # (Auto) 1.9 x10^3/uL (0.0-0.7) Basophils # (Auto) 0.1 x10^3/uL (0.0-0.2) Sodium Level 130 mmol/L (136-145) Potassium Level 3.7 mmol/L (3.5-5.1) Chloride Level 93 mmol/L (98-107) Carbon Dioxide Level 22 mmol/L (21-32) Anion Gap 15 (6-14) Blood Urea Nitrogen 46 mg/dL (7-20) Creatinine 5.1 mg/dL (0.6-1.0) Estimated GFR (Cockcroft-Gault) 9.1 Glucose Level 193 mg/dL (70-99) Calcium Level 8.1 mg/dL (8.5-10.1) Phosphorus Level 5.2 mg/dL (2.6-4.7) Albumin 1.3 g/dL (3.4-5.0) Glucose (Fingerstick) 180 mg/dL (70-99) O2 Saturation 94 % (92-99) Arterial Blood pH 7.31 (7.35-7.45) Arterial Blood pCO2 at Patient Temp 37 mmHg (35-46) Arterial Blood pO2 at Patient Temp 79 mmHg (75-108) Arterial Blood HCO3 18 mmol/L (21-28) Arterial Blood Base Excess -7 mmol/L (-3-3) FiO2 55 Results All relevant outside records, renal labs, imaging studies, telemetry/EKG's were reviewed. Justicifation of Admission Dx: Justifications for Admission: Justification of Admission Dx: N/A GIGI CARMEN MD Mar 11, 2021 09:07
--- NOTE | 2021-03-11 09:43 | PDOC ---
PULMONARY PROGRESS NOTES DATE: 03/11/21 TIME: 09:41 Subjective Patient remains on vent support Oxygen requirement is now improved. sedated on prop versed precedex vec prn levo low dose Vitals Vital Signs Date Time Temp Pulse Resp B/P (MAP) Pulse Ox O2 Delivery O2 Flow Rate FiO2 03/11/21 09:09 97 Ventilator 03/11/21 09:00 63 24 118/73 (88) 03/11/21 08:00 98.9 98.9 03/10/21 17:36 50.0 Comments Visual exam done due to COVID-19. intubated NC AT RRR no accessory muscle use abd obese No skin rash or leg edema. Labs Laboratory Tests Test 03/09/21 12:53 03/09/21 17:56 03/09/21 21:47 03/09/21 23:57 Glucose (Fingerstick) 137 mg/dL (70-99) 132 mg/dL (70-99) 107 mg/dL (70-99) 144 mg/dL (70-99) Test 03/10/21 06:08 03/10/21 06:20 03/10/21 07:59 03/10/21 13:15 Glucose (Fingerstick) 153 mg/dL (70-99) 180 mg/dL (70-99) White Blood Count 15.0 x10^3/uL (4.0-11.0) Red Blood Count 2.50 x10^6/uL (3.50-5.40) Hemoglobin 7.5 g/dL (12.0-15.5) Hematocrit 21.8 % (36.0-47.0) Mean Corpuscular Volume 88 fL (79-100) Mean Corpuscular Hemoglobin 30 pg (25-35) Mean Corpuscular Hemoglobin Concent 34 g/dL (31-37) Red Cell Distribution Width 13.7 % (11.5-14.5) Platelet Count 175 x10^3/uL (140-400) Neutrophils (%) (Auto) 78 % (31-73) Lymphocytes (%) (Auto) 11 % (24-48) Monocytes (%) (Auto) 4 % (0-9) Eosinophils (%) (Auto) 8 % (0-3) Basophils (%) (Auto) 1 % (0-3) Neutrophils # (Auto) 11.6 x10^3/uL (1.8-7.7) Lymphocytes # (Auto) 1.6 x10^3/uL (1.0-4.8) Monocytes # (Auto) 0.5 x10^3/uL (0.0-1.1) Eosinophils # (Auto) 1.2 x10^3/uL (0.0-0.7) Basophils # (Auto) 0.1 x10^3/uL (0.0-0.2) Sodium Level 131 mmol/L (136-145) Potassium Level 4.2 mmol/L (3.5-5.1) Chloride Level 95 mmol/L (98-107) Carbon Dioxide Level 25 mmol/L (21-32) Anion Gap 11 (6-14) Blood Urea Nitrogen 35 mg/dL (7-20) Creatinine 4.1 mg/dL (0.6-1.0) Estimated GFR (Cockcroft-Gault) 11.8 BUN/Creatinine Ratio 9 (6-20) Glucose Level 182 mg/dL (70-99) Calcium Level 7.9 mg/dL (8.5-10.1) Total Bilirubin 0.6 mg/dL (0.2-1.0) Aspartate Amino Transf (AST/SGOT) 275 U/L (15-37) Alanine Aminotransferase (ALT/SGPT) 188 U/L (14-59) Alkaline Phosphatase 258 U/L (46-116) Total Protein 6.5 g/dL (6.4-8.2) Albumin 1.4 g/dL (3.4-5.0) Albumin/Globulin Ratio 0.3 (1.0-1.7) O2 Saturation 96 % (92-99) Arterial Blood pH 7.36 (7.35-7.45) Arterial Blood pCO2 at Patient Temp 37 mmHg (35-46) Arterial Blood pO2 at Patient Temp 91 mmHg (75-108) Arterial Blood HCO3 20 mmol/L (21-28) Arterial Blood Base Excess -5 mmol/L (-3-3) FiO2 60 Test 03/10/21 17:20 03/10/21 21:02 03/11/21 00:25 03/11/21 05:45 Glucose (Fingerstick) 141 mg/dL (70-99) 173 mg/dL (70-99) 173 mg/dL (70-99) White Blood Count 16.7 x10^3/uL (4.0-11.0) Red Blood Count 2.83 x10^6/uL (3.50-5.40) Hemoglobin 8.1 g/dL (12.0-15.5) Hematocrit 24.9 % (36.0-47.0) Mean Corpuscular Volume 88 fL (79-100) Mean Corpuscular Hemoglobin 29 pg (25-35) Mean Corpuscular Hemoglobin Concent 33 g/dL (31-37) Red Cell Distribution Width 14.2 % (11.5-14.5) Platelet Count 188 x10^3/uL (140-400) Neutrophils (%) (Auto) 76 % (31-73) Lymphocytes (%) (Auto) 9 % (24-48) Monocytes (%) (Auto) 3 % (0-9) Eosinophils (%) (Auto) 12 % (0-3) Basophils (%) (Auto) 1 % (0-3) Neutrophils # (Auto) 12.7 x10^3/uL (1.8-7.7) Lymphocytes # (Auto) 1.4 x10^3/uL (1.0-4.8) Monocytes # (Auto) 0.5 x10^3/uL (0.0-1.1) Eosinophils # (Auto) 1.9 x10^3/uL (0.0-0.7) Basophils # (Auto) 0.1 x10^3/uL (0.0-0.2) Sodium Level 130 mmol/L (136-145) Potassium Level 3.7 mmol/L (3.5-5.1) Chloride Level 93 mmol/L (98-107) Carbon Dioxide Level 22 mmol/L (21-32) Anion Gap 15 (6-14) Blood Urea Nitrogen 46 mg/dL (7-20) Creatinine 5.1 mg/dL (0.6-1.0) Estimated GFR (Cockcroft-Gault) 9.1 Glucose Level 193 mg/dL (70-99) Calcium Level 8.1 mg/dL (8.5-10.1) Phosphorus Level 5.2 mg/dL (2.6-4.7) Albumin 1.3 g/dL (3.4-5.0) Test 03/11/21 05:53 03/11/21 07:30 Glucose (Fingerstick) 180 mg/dL (70-99) O2 Saturation 94 % (92-99) Arterial Blood pH 7.31 (7.35-7.45) Arterial Blood pCO2 at Patient Temp 37 mmHg (35-46) Arterial Blood pO2 at Patient Temp 79 mmHg (75-108) Arterial Blood HCO3 18 mmol/L (21-28) Arterial Blood Base Excess -7 mmol/L (-3-3) FiO2 55 Laboratory Tests Test 03/10/21 13:15 03/10/21 17:20 03/10/21 21:02 03/11/21 00:25 Glucose (Fingerstick) 180 mg/dL (70-99) 141 mg/dL (70-99) 173 mg/dL (70-99) 173 mg/dL (70-99) Test 03/11/21 05:45 03/11/21 05:53 03/11/21 07:30 White Blood Count 16.7 x10^3/uL (4.0-11.0) Red Blood Count 2.83 x10^6/uL (3.50-5.40) Hemoglobin 8.1 g/dL (12.0-15.5) Hematocrit 24.9 % (36.0-47.0) Mean Corpuscular Volume 88 fL (79-100) Mean Corpuscular Hemoglobin 29 pg (25-35) Mean Corpuscular Hemoglobin Concent 33 g/dL (31-37) Red Cell Distribution Width 14.2 % (11.5-14.5) Platelet Count 188 x10^3/uL (140-400) Neutrophils (%) (Auto) 76 % (31-73) Lymphocytes (%) (Auto) 9 % (24-48) Monocytes (%) (Auto) 3 % (0-9) Eosinophils (%) (Auto) 12 % (0-3) Basophils (%) (Auto) 1 % (0-3) Neutrophils # (Auto) 12.7 x10^3/uL (1.8-7.7) Lymphocytes # (Auto) 1.4 x10^3/uL (1.0-4.8) Monocytes # (Auto) 0.5 x10^3/uL (0.0-1.1) Eosinophils # (Auto) 1.9 x10^3/uL (0.0-0.7) Basophils # (Auto) 0.1 x10^3/uL (0.0-0.2) Sodium Level 130 mmol/L (136-145) Potassium Level 3.7 mmol/L (3.5-5.1) Chloride Level 93 mmol/L (98-107) Carbon Dioxide Level 22 mmol/L (21-32) Anion Gap 15 (6-14) Blood Urea Nitrogen 46 mg/dL (7-20) Creatinine 5.1 mg/dL (0.6-1.0) Estimated GFR (Cockcroft-Gault) 9.1 Glucose Level 193 mg/dL (70-99) Calcium Level 8.1 mg/dL (8.5-10.1) Phosphorus Level 5.2 mg/dL (2.6-4.7) Albumin 1.3 g/dL (3.4-5.0) Glucose (Fingerstick) 180 mg/dL (70-99) O2 Saturation 94 % (92-99) Arterial Blood pH 7.31 (7.35-7.45) Arterial Blood pCO2 at Patient Temp 37 mmHg (35-46) Arterial Blood pO2 at Patient Temp 79 mmHg (75-108) Arterial Blood HCO3 18 mmol/L (21-28) Arterial Blood Base Excess -7 mmol/L (-3-3) FiO2 55 Medications Active Scripts Medications Dose Route/Sig Max Daily Dose Days Date Category Novolog Flexpen (Insulin Aspart) 100 Unit/1 Ml Insuln.pen 3-7 SQ TIDACHC 02/07/21 Reported Lisinopril 5 Mg Tablet 1 Tab PO DAILY 02/07/21 Reported Lantus Solostar (Insulin Glargine,Hum.rec.anlog) 100 Unit/1 Ml Insuln.pen 5 Unit SQ QHS 04/09/15 Reported Atorvastatin Calcium 40 Mg Tablet 40 Mg PO HS 04/09/15 Reported Comments Chest x-ray reviewed 03/09/2021. Diffuse interstitial infiltrates. No pneumothorax. No significant change cxr 03/06 reviewed 1. Significant interval increase in diffuse pulmonary infiltrate. 2. Stable support lines and tubes. Impression . IMPRESSION: 1. Acute hypoxic respiratory failure secondary to COVID-19 viral pneumonia/acute lung injury and early acute respiratory distress syndrome. S/P intubation 02/17/21,-- worsening hypoxia since 03/05, fever, low BP and BOB, New sepsis and secondary infection. Clinically improving now 2. Nonsmoker. 3. Abnormal chest x-ray consistent with COVID-19 viral pneumonia.--- 4. Diabetic ketoacidosis as initial presentation, currently better.--resolved 5. Underlying obesity contributing to hypoxia as well. 6. BOB worsening hd started 03/07 7. Fever, On broad-spectrum antibiotics. Infectious disease following. Clinically improving 8. Abnormal chest x-ray with diffuse interstitial infiltrates compatible with viral pneumonia 9. [place] in the sputum is a contamination Plan . Updated 03/11/2021 Continue current ventilatory support, setting reviewed, on peep 8 fio2 60% titrate peep fio2 as tolerated. ABGs reviewed. Oxygenation has improved. Wean FiO2 as tolerated. levophed to keep map 65. hd started 03/07 per nephro CXR with unchanged diffuse interstitial infiltrates. Follow-up surgery recommendations for tracheostomy. I have discussed with Dr. Arzate. Plan to do tracheostomy next Tuesday. Follow chest x-ray/ABG Follow infectious disease recommendations in regards to antibiotics S/P remdesivir for full course, has also completed full course of steroids Continue tube feeding for nutritional support elevate hob DVT/GI prophylaxis: Lovenox Discussed with RN and RT Discussed with Dr. Arzate. Tracheostomy next Tuesday. critically ill but improving cct 30 min no overlap Updated 03/10/2021 Continue current ventilatory support, setting reviewed, on peep 8 fio2 60% titrate peep fio2 as tolerated. ABGs reviewed. Oxygenation has improved. Wean FiO2 as tolerated. levophed to keep map 65. hd started 03/07 per nephro CXR with unchanged diffuse interstitial infiltrates. Follow-up surgery recommendations for tracheostomy. I have discussed with Dr. Arzate. Plan to do tracheostomy next Tuesday. Follow chest x-ray/ABG Follow infectious disease recommendations in regards to antibiotics S/P remdesivir for full course, has also completed full course of steroids Continue tube feeding for nutritional support elevate hob DVT/GI prophylaxis: Lovenox Discussed with RN and RT Discussed with Dr. Emmanuel. Tracheostomy next Tuesday. critically ill cct 30 min no overlap Updated 03/09/2021 Continue current ventilatory support, setting reviewed, on peep 8 fio2 60% titrate peep fio2 as tolerated. ABGs reviewed. Oxygenation has improved. levophed to keep map 65. hd started 03/07 per nephro CXR with unchanged diffuse interstitial infiltrates. Follow-up surgery recommendations for tracheostomy. I have discussed with Dr. Arzate. For now which is put a hold to tracheostomy until she is more stable. Follow chest x-ray/ABG Follow infectious disease recommendations in regards to antibiotics S/P remdesivir for full course, has also completed full course of steroids Continue tube feeding for nutritional support elevate hob DVT/GI prophylaxis: Lovenox Discussed with RN and RT I have discussed with Dr. Arzate. For now which is put a hold to tracheostomy until she is more stable. critically ill cct 30 min no overlap Updated 03/08/2021 Continue current ventilatory support, setting reviewed, on peep 8 fio2 60% titrate peep fio2 as tolerated levophed to keep map 65. hd started 03/07 per nephro CXR with worsening infiltrates. Follow-up surgery recommendations for tracheostomy. worsening would prob need trach Follow chest x-ray/ABG Follow infectious disease recommendations in regards to antibiotics S/P remdesivir for full course, has also completed full course of steroids Continue tube feeding for nutritional support elevate hob DVT/GI prophylaxis: Lovenox Discussed with RN and RT critically ill cct 30 min no overlap Updated 03/07/2021 Continue current ventilatory support, setting reviewed, will increase peep to 7 abg reviewed will increase peep to 8 rr to 24 levophed to keep map 65. Monitor renal function closely. cr 4.2 today renal consulted they will start dialysis today Oxygen requirement has increased. CXR with worsening infiltrates., no CHF Follow-up surgery recommendations for tracheostomy. Follow chest x-ray/ABG Follow infectious disease recommendations in regards to antibiotics S/P remdesivir for full course, has also completed full course of steroids Continue tube feeding for nutritional support DVT/GI prophylaxis: Lovenox Discussed with RN and RT critically ill cct 30 min no overlap Updated 03/06/2021 Continue current ventilatory support 18/450/55/5, Oxygen requirement has increased. CXR with worsening infiltrates., no CHF pt. still unable to tolerate sedation vacation/weaning trial. will hold further trials till clinically better Follow-up surgery recommendations for tracheostomy. May have to hold for now Follow chest x-ray/ABG Follow infectious disease recommendations in regards to antibiotics IVF bolus and low dose levophed. Monitor renal function closely. consult renal S/P remdesivir for full course, has also completed full course of steroids Continue tube feeding for nutritional support DVT/GI prophylaxis: Lovenox Discussed with RN and RT Critical care time 30 minutes addend: cxr with increase interstitial infiltrates c/w COVID Updated 03/05/2021 Continue current ventilatory support 18/450/40/5, pt. still unable to tolerate sedation vacation/weaning trial Follow-up surgery recommendations for tracheostomy Follow chest x-ray/ABG as needed--marginal PO2 no room for weaning Follow infectious disease recommendations in regards to antibiotics S/P remdesivir for full course, has also completed full course of steroids Continue tube feeding for nutritional support DVT/GI prophylaxis: Lovenox Discussed with RN and R Critical care time 30 minutes EMILY POSADA MD Mar 11, 2021 09:43
[2021-03-11] MEDS: INSULIN GLARGINE SYRINGE. SQ SCH ×2 (10:08→20:34)
[2021-03-11] MEDS: FLUCONAZOLE 200MG/100ML PREMIX 100 ML IV SCH (11:51)
[2021-03-11] MEDS: DOCUSATE 100 MG/10 ML SOLUTION. PO SCH ×2 (11:51→20:33)
[2021-03-11] MEDS: LINEZOLID 600 MG TABLET PO SCH ×2 (11:51→20:33)
[2021-03-11] MEDS: FAMOTIDINE 20 MG/2 ML VIAL IVP SCH (11:51)
[2021-03-11] MEDS: ENOXAPARIN 30 MG/0.3 ML SYRINGE. SQ SCH (11:52)
--- NOTE | 2021-03-11 13:36 | PDOC ---
[facility] PROGRESS NOTE Date of Service DOS: DATE: 03/11/21 TIME: 13:34 Chief Complaint Chief Complaint Hypotension COVID-19 positive infection Tractable nausea vomiting DKA Combined metabolic and respiratory acidosis Acute electrolyte derangementhyponatremia, hypochloremia due to volume depletion Hyperglycemia uncontrolled BOB due to vasomotor nephropathy Erythrocytosis Reglan for diabetic gastroparesis Candiduria Sacral decubitus ulcer Started on fluconazole today and Zosyn Continue Covid measures Patient intubated Pulmonary following SCD for DVT prophylaxis Protonix GI prophylaxis ADA diet Full code Discussed with RN and SW Disposition inpatient management as above Surrogate decision maker is Brian Whitmore History of Present Illness History of Present Illness Ms Borges is a 46 year old female who presented with nausea/vomiting since 7 AM 02/06/2021 in the morning. Patient stated that her recently tested positive for Covid. She states that he "coughed in my face because he thought it was funny." She reports subjective fevers and chills and nausea/vomiting. Denies sore throat, cough, shortness of breath. No chest pain. Does have some upper abdominal discomfort after vomiting, that she attributes to muscular strain. She was not vaccinated for Covid. 02/08: No acute events overnight. Patient seen and examined bedside and resting comfortably. Continues to complain of nausea not able to tolerate any diet at this time. Saturating 98% on room air. Patient's chart, labs, images were reviewed and discussed with RN 02/09: Afebrile, currently breathing on room air. Still with complaints of nausea and vomiting x3 today. States that she has history of similar symptoms that have been mildly improved with IV Dilaudid. 02/10: Patient febrile today with T-max 102.2 F. She still admits to nausea, denies any further vomiting. We will continue to provide supportive care and monitor for any recurrent fevers overnight. Patient continues to improve may discharge tomorrow to continue self-isolation. 02/11: Febrile overnight, T-max 102.3 F. She did become hypoxic overnight, currently breathing on 4 L nasal cannula. Also admits to associated vomiting or diarrhea overnight. Discussed with RN, will initiate remdesivir and closely monitor LFTs. IV Decadron, and prophylactic antibiotics. 02/12: Low-grade fever overnight, T-max 99.7. Currently breathing on room air. Will discontinue remdesivir, steroids, and antibiotics; will observe overnight. Still with complaints of vomiting x1 and diarrhea. We will continue to provide supportive care and hope to discharge in the next day or so. 02/13: Afebrile. Still complains of intermittent diarrhea. At the time of my evaluation she was breathing on 6 L nasal cannula; this is somewhat misleading as patient states that she did not feel short of breath but was placed on 6 L by nursing staff overnight. 02/14: Afebrile, currently breathing on 8 L nasal cannula. There has been some misleading documentation, chart oxygen this patient is requiring. Discussed with RN, will resume remdesivir to complete total of 5 days. Continue to monitor LFTs. Will add steroids, Rocephin, and azithromycin. 02/15: Afebrile. Became much more hypoxic overnight, requiring BiPAP. At the time of my evaluation she is still breathing on BiPAP. Consultation was placed to pulmonology. Had discussion with Dr. Myrick about initiating Tocilizumab 02/16: No acute events overnight. Patient becoming more hypoxic saturating 94% and requiring BiPAP. Patient will be transferred to the ICU at this time. For worsening clinical status. Discussed with pulmonary. Patient's chart, labs, images were reviewed and discussed with RN 02/17: Transferred to ICU yesterday afternoon. Seen and examined at bedside she remains on 100% FiO2 on BiPAP. Respirations do appear somewhat labored. Suspect intubation may be impending. We will closely monitor. Increase lisinopril to 20 today. 02/18: Patient required intubation yesterday afternoon. Saw and examined this morning. She is intubated and sedated. Increase insulin today. Covid protocol ordered. Wean as tolerated. Plan of care discussed with bedside nurse. 02/19: Bedside. She remains intubated and sedated. Continue Covid protocol. Wean oxygen sedation as tolerated. Pulmonary following. Plan of care discussed with bedside RN. 02/20: Patient seen and examined at bedside. She remains intubated and sedated. No major clinical changes. Continue current treatment. Pulmonary following. Plan of care discussed with bedside RN. 02/21: Patient seen and examined at bedside. Remains intubated and sedated date and admission clinical changes. Increase free water flushes today due to hypernatremia. Plan of care discussed with bedside nurse. 02/22: Patient seen and examined at bedside. O2 requirement actually improving, although remains intubated. Possible SBT in the coming days. Hypernatremia improving. Plan of care discussed bedside RN. 02/23: Patient remains in ICU on ventilator with FiO2 100%, PEEP 7. Repeat chest x-ray yesterday showed diffuse bilateral pulmonary opacities with no interval improvement. Will discontinue Rocephin and initiate Zosyn. We will continue IV steroids for a full 10-day course 02/24: Afebrile. On vent with FiO2 40%, PEEP 6. Her Coreg has been held due to persistent bradycardia. No documented history of systolic heart failure or pre vious echocardiogram. Will need to obtain echocardiogram prior to discharge. Continue IV steroids and antibiotics. 02/25: Afebrile. Remains ventilated with FiO2 45%, PEEP 6. Chest x-ray today showed slight improvement of the pulmonary infiltrates, no pneumothorax. Completed 10-day course of IV Decadron. Will initiate slow Solu-Medrol taper. Continue IV Zosyn. Continue supportive care. 02/26: Afebrile. On vent with FiO2 45%, PEEP 6. Completed 10 days of IV Decadron. Will continue IV Zosyn. Continue supportive care. Critical care time 30 minutes spent reviewing charts, reviewing imaging, reviewing labs, discussion with RN. 02/27: Afebrile. On vent with FiO2 45%, PEEP 6. Completed 10 days of steroids and completed remdesivir. Continue with IV Zosyn. CPAP trial yesterday. Continue NG tube and supportive care. 02/28:. Patient remains on vent with FiO2 40%, PEEP 5. Afebrile. Completed steroids and remdesivir. Some noted hypoglycemia overnight, will de-escalate basal insulin. Continue IV Zosyn. Ventilator management per pulmonology. Continue NG tube and supportive care. 03/01: On vent with FiO2 40%, PEEP 5. Afebrile. Completed steroids and remdesivir. Blood glucose well controlled. Continue empiric antibiotics with Zosyn. Ventilator management per pulmonology. Continue NG tube and supportive care. 03/02: No acute events overnight. Patient hypotensive the morning due to o versedation. Will wean off sedation and keep antihypertensive medications on board. Currently saturating 100% on vent settings of 18/450/40/5. Will attempt spontaneous breathing trial today to see how patient does. 03/03: No acute events overnight. Patient saturating 98% on vent settings of 18/450/40/5. Will defer spontaneous breathing trials to pulmonary at this time. Patient's chart, labs, images were reviewed and discussed with RN 03/04: No acute events overnight. Patient saturating 9 9% on vent settings of 18/450/30/5. Patient currently is unable to tolerate weaning. Per pulmonary. Patient's chart, labs, images were reviewed and discussed with RN 03/05: No acute events overnight. Patient is saturating 97% on vent settings of 18/450/55/5. Her FiO2 needs to be increased due to abnormal ABG with 7.3 . Patient's chart, labs, images were reviewed and discussed with RN 03/06: No acute events overnight. Patient saturating 94% on vent settings of 18/450/55/5. Chest x-ray showing increase in pulmonary infiltrates. Wound care is consulted for decubitus ulcer patient's chart, labs, images were reviewed and discussed with RN 03/07: No acute events overnight. Patient saturating 94% on vent settings of 20/450/70/8. Patient now heading into renal failure with her creatinine bumped up from 1.5-4.2. Decreased urine output. Plan for hemodialysis today and temporary catheter placement and nephrology is consulted. 03/08: No acute events overnight. Patient did have a nausea vomiting episode and tube feeds were held. KUB repeat shows NG tube still in the stomach. Will resume tube feeds at trickle and advance to goal today. Will start hemodialysis soon. 03/09: Seen on vent 20/450/60%/8. ABG 7.2 WBC 11.4, Hb 7.4, platelets 188, NA 131, K4.9, BUN 48, CR 51, glucose 199, phosphorus 7.9, mag 2.2, AST 265 ALT 219, albumin 1.1. Chest radiograph appears unchanged from prior. Dialysis x1 today 03/10: Afebrile. Seen on vent, 20/450/60/7 with ABG 7.3 . Tolerated dialysis well on 03/09. LFTs similar. Afebrile. Seen on vent, sedated. Still requiring Levophed for BP support. WBC 16.7, Hb 8.1, NA 130, ABG 7.3 on 55% FiO2 PEEP 6. On Zosyn and Zyvox Diflucan. CC time 31 minutes Vitals/I&O Vitals/I&O: Vital Signs Date Time Temp Pulse Resp B/P (MAP) Pulse Ox O2 Delivery O2 Flow Rate FiO2 03/11/21 13:22 100 Ventilator 03/11/21 13:00 68 24 159/92 (114) 03/11/21 12:02 98.7 98.7 03/10/21 17:36 50.0 I & O 03/10/21 03/10/21 03/11/21 15:00 23:00 07:00 Intake Total 600 ml 2243 ml 2033 ml Output Total 5 ml 0 ml 910 ml Balance 595 ml 2243 ml 1123 ml Physical Exam Physical Exam: GENERAL: Intubated and sedated. HEENT: Normocephalic, atraumatic. Anicteric. Neck right IJ HDC clean LUNGS: Rhonchi. HEART: S1, S2. No murmurs. ABDOMEN: Obese, soft. Bowel sounds present. Nontender, nondistended. GENITOURINARY: Kern and fecal tube in place. EXTREMITIES: Edema present no cyanosis. CENTRAL NERVOUS SYSTEM: Intubated. PSYCHIATRIC: Unable to assess. Derm has pressure wounds wound pictures noted in chart. Generalized rash, PICC line , right IJ HDC clean General: No acute distress Heart: Regular rate Abdomen: Normal bowel sounds, Soft, No tenderness Extremities: No clubbing, No cyanosis, Other Skin: No rashes, No significant lesion Labs Labs: Laboratory Tests Test 03/10/21 17:20 03/10/21 21:02 03/11/21 00:25 03/11/21 05:45 Glucose (Fingerstick) 141 mg/dL (70-99) 173 mg/dL (70-99) 173 mg/dL (70-99) White Blood Count 16.7 x10^3/uL (4.0-11.0) Red Blood Count 2.83 x10^6/uL (3.50-5.40) Hemoglobin 8.1 g/dL (12.0-15.5) Hematocrit 24.9 % (36.0-47.0) Mean Corpuscular Volume 88 fL (79-100) Mean Corpuscular Hemoglobin 29 pg (25-35) Mean Corpuscular Hemoglobin Concent 33 g/dL (31-37) Red Cell Distribution Width 14.2 % (11.5-14.5) Platelet Count 188 x10^3/uL (140-400) Neutrophils (%) (Auto) 76 % (31-73) Lymphocytes (%) (Auto) 9 % (24-48) Monocytes (%) (Auto) 3 % (0-9) Eosinophils (%) (Auto) 12 % (0-3) Basophils (%) (Auto) 1 % (0-3) Neutrophils # (Auto) 12.7 x10^3/uL (1.8-7.7) Lymphocytes # (Auto) 1.4 x10^3/uL (1.0-4.8) Monocytes # (Auto) 0.5 x10^3/uL (0.0-1.1) Eosinophils # (Auto) 1.9 x10^3/uL (0.0-0.7) Basophils # (Auto) 0.1 x10^3/uL (0.0-0.2) Sodium Level 130 mmol/L (136-145) Potassium Level 3.7 mmol/L (3.5-5.1) Chloride Level 93 mmol/L (98-107) Carbon Dioxide Level 22 mmol/L (21-32) Anion Gap 15 (6-14) Blood Urea Nitrogen 46 mg/dL (7-20) Creatinine 5.1 mg/dL (0.6-1.0) Estimated GFR (Cockcroft-Gault) 9.1 Glucose Level 193 mg/dL (70-99) Calcium Level 8.1 mg/dL (8.5-10.1) Phosphorus Level 5.2 mg/dL (2.6-4.7) Albumin 1.3 g/dL (3.4-5.0) Test 03/11/21 05:53 03/11/21 07:30 03/11/21 11:55 Glucose (Fingerstick) 180 mg/dL (70-99) 119 mg/dL (70-99) O2 Saturation 94 % (92-99) Arterial Blood pH 7.31 (7.35-7.45) Arterial Blood pCO2 at Patient Temp 37 mmHg (35-46) Arterial Blood pO2 at Patient Temp 79 mmHg (75-108) Arterial Blood HCO3 18 mmol/L (21-28) Arterial Blood Base Excess -7 mmol/L (-3-3) FiO2 55 Assessment and Plan Assessmemt and Plan Problems Medical Problems: (1) Ketoacidosis Status: Acute Comment Review of Relevant I have reviewed the following items mazin (where applicable) has been applied. Justifications for Admission Other Justification LEO GROSS MD Mar 11, 2021 13:36
[2021-03-11] MEDS: VITS A & D/LANOLIN TOPICAL OINTMENT 42GM TUBE. TP PRN (20:33)
[2021-03-11] MEDS: ATORVASTATIN CALCIUM 40 MG TABLET. PO SCH (20:33)
[2021-03-12] VITALS (24 sets, daily range): BP systolic 83–155; BP diastolic 54–79
[2021-03-12] MEDS: PROPOFOL 100 ML IV PRN ×4 (02:54→18:53)
[2021-03-12] MEDS: DEXMEDETOMIDINE 400 MCG in IV NORMAL SALINE 100ML 96 ML IV PRN ×6 (03:29→22:31)
[2021-03-12] MEDS: PIPERACILLIN/TAZOBACTAM 2.25 GM in IV NORMAL SALINE 50ML 50 ML IV SCH ×3 (05:57→21:59)
[2021-03-12] MEDS: INSULIN LISPRO 300 UNITS/3 ML VIAL. SQ SCH ×3 (05:59→18:04)
[2021-03-12 06:01] LABS: BASO # 0.1 x10^3/uL (0.0-0.2); BASO % 0 % (0-3); EOS # 1.8 x10^3/uL (0.0-0.7); EOS % 11 % (0-3); HEMATOCRIT 25.2 % (36.0-47.0); HEMOGLOBIN 8.5 g/dL (12.0-15.5); LYMPH # 1.5 x10^3/uL (1.0-4.8); LYMPH % 9 % (24-48); MEAN CORPUSCULAR HEMOGLOBIN 29 pg (25-35); MEAN CORPUSCULAR HGB CONC 34 g/dL (31-37); MEAN CORPUSCULAR VOLUME 88 fL (79-100); MONO # 0.5 x10^3/uL (0.0-1.1); MONO % 3 % (0-9); NEUT # 12.2 x10^3/uL (1.8-7.7); NEUT % 76 % (31-73); PLATELET COUNT 185 x10^3/uL (140-400); RED BLOOD COUNT 2.88 x10^6/uL (3.50-5.40); RED CELL DISTRIBUTION WIDTH 14.3 % (11.5-14.5); WHITE BLOOD COUNT 16.1 x10^3/uL (4.0-11.0)
[2021-03-12 06:06] LABS: CALCIUM 7.8 mg/dL (8.5-10.1); CREATININE 4.2 mg/dL (0.6-1.0); GFR 11.4; POTASSIUM 3.8 mmol/L (3.5-5.1)
--- NOTE | 2021-03-12 07:09 | PDOC ---
Infectious Disease Note Subjective Subjective Pt intubated sedated ROS ROS no n/v/d/ Vital Sign Vital Signs Vital Signs Date Time Temp Pulse Resp B/P (MAP) Pulse Ox O2 Delivery O2 Flow Rate FiO2 03/12/21 06:00 60 24 85/54 (64) 98 Ventilator 03/12/21 04:00 98.9 98.9 Physical Exam PHYSICAL EXAM GENERAL: Intubated and sedated. HEENT: Normocephalic, atraumatic. Anicteric. Neck right IJ HDC clean LUNGS: Rhonchi. HEART: S1, S2. No murmurs. ABDOMEN: Obese, soft. Bowel sounds present. Nontender, nondistended. GENITOURINARY: Abbasi and fecal tube in place. EXTREMITIES: Edema present no cyanosis. CENTRAL NERVOUS SYSTEM: Intubated. PSYCHIATRIC: Unable to assess. Derm has pressure wounds wound pictures noted in chart. Generalized rash, PICC line , right IJ HDC clean Labs Lab Laboratory Tests Test 03/11/21 07:30 03/11/21 11:55 03/11/21 16:17 03/11/21 20:45 O2 Saturation 94 % (92-99) Arterial Blood pH 7.31 (7.35-7.45) Arterial Blood pCO2 at Patient Temp 37 mmHg (35-46) Arterial Blood pO2 at Patient Temp 79 mmHg (75-108) Arterial Blood HCO3 18 mmol/L (21-28) Arterial Blood Base Excess -7 mmol/L (-3-3) FiO2 55 Glucose (Fingerstick) 119 mg/dL (70-99) 128 mg/dL (70-99) 149 mg/dL (70-99) Test 03/11/21 23:44 03/12/21 05:40 03/12/21 05:41 Glucose (Fingerstick) 174 mg/dL (70-99) 174 mg/dL (70-99) White Blood Count 16.1 x10^3/uL (4.0-11.0) Red Blood Count 2.88 x10^6/uL (3.50-5.40) Hemoglobin 8.5 g/dL (12.0-15.5) Hematocrit 25.2 % (36.0-47.0) Mean Corpuscular Volume 88 fL (79-100) Mean Corpuscular Hemoglobin 29 pg (25-35) Mean Corpuscular Hemoglobin Concent 34 g/dL (31-37) Red Cell Distribution Width 14.3 % (11.5-14.5) Platelet Count 185 x10^3/uL (140-400) Neutrophils (%) (Auto) 76 % (31-73) Lymphocytes (%) (Auto) 9 % (24-48) Monocytes (%) (Auto) 3 % (0-9) Eosinophils (%) (Auto) 11 % (0-3) Basophils (%) (Auto) 0 % (0-3) Neutrophils # (Auto) 12.2 x10^3/uL (1.8-7.7) Lymphocytes # (Auto) 1.5 x10^3/uL (1.0-4.8) Monocytes # (Auto) 0.5 x10^3/uL (0.0-1.1) Eosinophils # (Auto) 1.8 x10^3/uL (0.0-0.7) Basophils # (Auto) 0.1 x10^3/uL (0.0-0.2) Sodium Level 133 mmol/L (136-145) Potassium Level 3.8 mmol/L (3.5-5.1) Chloride Level 96 mmol/L (98-107) Carbon Dioxide Level 24 mmol/L (21-32) Anion Gap 13 (6-14) Blood Urea Nitrogen 37 mg/dL (7-20) Creatinine 4.2 mg/dL (0.6-1.0) Estimated GFR (Cockcroft-Gault) 11.4 Glucose Level 190 mg/dL (70-99) Calcium Level 7.8 mg/dL (8.5-10.1) Micro Microbiology 03/04/21 Gram Stain Evaluation - Final, Complete 03/04/21 Respiratory Culture - Final, Complete 03/04/21 Urine Culture - Final, Complete 03/04/21 Blood Culture - Preliminary, Resulted NO GROWTH AFTER 4 DAYS Objective Assessment 1. Febrile illness. 2. COVID-19 infection present on date of admission, 02/06/2021. Status post remdesivir, dexamethasone. 3. Acute hypoxic respiratory failure, status post intubation. Trach cultures positive for [place] albicans 4. Diabetes. 5. Diarrhea. 6. Hypertension. 7. Hyperlipidemia. 8. Anemia. 9. BOB on HD 10.UC [place], ua neg Plan Plan of Care Continue Zosyn, Continue fluconazole renal dosing 03/07 Follow-up lab ,cultures, C. diff PCR negative Change abbasi if not done already. Wound care per wound treatment Offload Continue supportive care. Critically ill. Prognosis guarded. D/W BLANCA CURIEL MD Mar 12, 2021 07:09
[2021-03-12 07:57] LABS: BASE EXCESS ABG -5 mmol/L (-3-3); HCO3 ABG 20 mmol/L (21-28); PCO2 ABG 35 mmHg (35-46); PO2 ABG 79 mmHg (75-108); SAT O2 ABG 95 % (92-99)
--- NOTE | 2021-03-12 08:26 | PDOC ---
[facility] PROGRESS NOTE Date of Service DOS: DATE: 03/12/21 TIME: 08:23 Chief Complaint Chief Complaint Hypotension COVID-19 positive infection Tractable nausea vomiting DKA Combined metabolic and respiratory acidosis Acute electrolyte derangementhyponatremia, hypochloremia due to volume depletion Hyperglycemia uncontrolled BOB due to vasomotor nephropathy Erythrocytosis Reglan for diabetic gastroparesis Candiduria Sacral decubitus ulcer Started on fluconazole today and Zosyn Continue Covid measures Patient intubated Pulmonary following SCD for DVT prophylaxis Protonix GI prophylaxis ADA diet Full code Discussed with RN and SW Disposition inpatient management as above Surrogate decision maker is Brian Whitmore History of Present Illness History of Present Illness Ms Borges is a 46 year old female who presented with nausea/vomiting since 7 AM 02/06/2021 in the morning. Patient stated that her recently tested positive for Covid. She states that he "coughed in my face because he thought it was funny." She reports subjective fevers and chills and nausea/vomiting. Denies sore throat, cough, shortness of breath. No chest pain. Does have some upper abdominal discomfort after vomiting, that she attributes to muscular strain. She was not vaccinated for Covid. 02/08: No acute events overnight. Patient seen and examined bedside and resting comfortably. Continues to complain of nausea not able to tolerate any diet at this time. Saturating 98% on room air. Patient's chart, labs, images were reviewed and discussed with RN 02/09: Afebrile, currently breathing on room air. Still with complaints of nausea and vomiting x3 today. States that she has history of similar symptoms that have been mildly improved with IV Dilaudid. 02/10: Patient febrile today with T-max 102.2 F. She still admits to nausea, denies any further vomiting. We will continue to provide supportive care and monitor for any recurrent fevers overnight. Patient continues to improve may discharge tomorrow to continue self-isolation. 02/11: Febrile overnight, T-max 102.3 F. She did become hypoxic overnight, currently breathing on 4 L nasal cannula. Also admits to associated vomiting or diarrhea overnight. Discussed with RN, will initiate remdesivir and closely monitor LFTs. IV Decadron, and prophylactic antibiotics. 02/12: Low-grade fever overnight, T-max 99.7. Currently breathing on room air. Will discontinue remdesivir, steroids, and antibiotics; will observe overnight. Still with complaints of vomiting x1 and diarrhea. We will continue to provide supportive care and hope to discharge in the next day or so. 02/13: Afebrile. Still complains of intermittent diarrhea. At the time of my evaluation she was breathing on 6 L nasal cannula; this is somewhat misleading as patient states that she did not feel short of breath but was placed on 6 L by nursing staff overnight. 02/14: Afebrile, currently breathing on 8 L nasal cannula. There has been some misleading documentation, chart oxygen this patient is requiring. Discussed with RN, will resume remdesivir to complete total of 5 days. Continue to monitor LFTs. Will add steroids, Rocephin, and azithromycin. 02/15: Afebrile. Became much more hypoxic overnight, requiring BiPAP. At the time of my evaluation she is still breathing on BiPAP. Consultation was placed to pulmonology. Had discussion with Dr. Myrick about initiating Tocilizumab 02/16: No acute events overnight. Patient becoming more hypoxic saturating 94% and requiring BiPAP. Patient will be transferred to the ICU at this time. For worsening clinical status. Discussed with pulmonary. Patient's chart, labs, images were reviewed and discussed with RN 02/17: Transferred to ICU yesterday afternoon. Seen and examined at bedside she remains on 100% FiO2 on BiPAP. Respirations do appear somewhat labored. Suspect intubation may be impending. We will closely monitor. Increase lisinopril to 20 today. 02/18: Patient required intubation yesterday afternoon. Saw and examined this morning. She is intubated and sedated. Increase insulin today. Covid protocol ordered. Wean as tolerated. Plan of care discussed with bedside nurse. 02/19: Bedside. She remains intubated and sedated. Continue Covid protocol. Wean oxygen sedation as tolerated. Pulmonary following. Plan of care discussed with bedside RN. 02/20: Patient seen and examined at bedside. She remains intubated and sedated. No major clinical changes. Continue current treatment. Pulmonary following. Plan of care discussed with bedside RN. 02/21: Patient seen and examined at bedside. Remains intubated and sedated date and admission clinical changes. Increase free water flushes today due to hypernatremia. Plan of care discussed with bedside nurse. 02/22: Patient seen and examined at bedside. O2 requirement actually improving, although remains intubated. Possible SBT in the coming days. Hypernatremia improving. Plan of care discussed bedside RN. 02/23: Patient remains in ICU on ventilator with FiO2 100%, PEEP 7. Repeat chest x-ray yesterday showed diffuse bilateral pulmonary opacities with no interval improvement. Will discontinue Rocephin and initiate Zosyn. We will continue IV steroids for a full 10-day course 02/24: Afebrile. On vent with FiO2 40%, PEEP 6. Her Coreg has been held due to persistent bradycardia. No documented history of systolic heart failure or pre vious echocardiogram. Will need to obtain echocardiogram prior to discharge. Continue IV steroids and antibiotics. 02/25: Afebrile. Remains ventilated with FiO2 45%, PEEP 6. Chest x-ray today showed slight improvement of the pulmonary infiltrates, no pneumothorax. Completed 10-day course of IV Decadron. Will initiate slow Solu-Medrol taper. Continue IV Zosyn. Continue supportive care. 02/26: Afebrile. On vent with FiO2 45%, PEEP 6. Completed 10 days of IV Decadron. Will continue IV Zosyn. Continue supportive care. Critical care time 30 minutes spent reviewing charts, reviewing imaging, reviewing labs, discussion with RN. 02/27: Afebrile. On vent with FiO2 45%, PEEP 6. Completed 10 days of steroids and completed remdesivir. Continue with IV Zosyn. CPAP trial yesterday. Continue NG tube and supportive care. 02/28:. Patient remains on vent with FiO2 40%, PEEP 5. Afebrile. Completed steroids and remdesivir. Some noted hypoglycemia overnight, will de-escalate basal insulin. Continue IV Zosyn. Ventilator management per pulmonology. Continue NG tube and supportive care. 03/01: On vent with FiO2 40%, PEEP 5. Afebrile. Completed steroids and remdesivir. Blood glucose well controlled. Continue empiric antibiotics with Zosyn. Ventilator management per pulmonology. Continue NG tube and supportive care. 03/02: No acute events overnight. Patient hypotensive the morning due to o versedation. Will wean off sedation and keep antihypertensive medications on board. Currently saturating 100% on vent settings of 18/450/40/5. Will attempt spontaneous breathing trial today to see how patient does. 03/03: No acute events overnight. Patient saturating 98% on vent settings of 18/450/40/5. Will defer spontaneous breathing trials to pulmonary at this time. Patient's chart, labs, images were reviewed and discussed with RN 03/04: No acute events overnight. Patient saturating 9 9% on vent settings of 18/450/30/5. Patient currently is unable to tolerate weaning. Per pulmonary. Patient's chart, labs, images were reviewed and discussed with RN 03/05: No acute events overnight. Patient is saturating 97% on vent settings of 18/450/55/5. Her FiO2 needs to be increased due to abnormal ABG with 7.3 . Patient's chart, labs, images were reviewed and discussed with RN 03/06: No acute events overnight. Patient saturating 94% on vent settings of 18/450/55/5. Chest x-ray showing increase in pulmonary infiltrates. Wound care is consulted for decubitus ulcer patient's chart, labs, images were reviewed and discussed with RN 8: No acute events overnight. Patient saturating 94% on vent settings of 20/450/70/8. Patient now heading into renal failure with her creatinine bumped up from 1.5-4.2. Decreased urine output. Plan for hemodialysis today and temporary catheter placement and nephrology is consulted. 03/08: No acute events overnight. Patient did have a nausea vomiting episode and tube feeds were held. KUB repeat shows NG tube still in the stomach. Will resume tube feeds at trickle and advance to goal today. Will start hemodialysis soon. 03/09: Seen on vent 20/450/60%/8. ABG 7.2 WBC 11.4, Hb 7.4, platelets 188, NA 131, K4.9, BUN 48, CR 51, glucose 199, phosphorus 7.9, mag 2.2, AST 265 ALT 219, albumin 1.1. Chest radiograph appears unchanged from prior. Dialysis x1 today 03/10: Afebrile. Seen on vent, 20/450/60/7 with ABG 7.3 . Tolerated dialysis well on 03/09. LFTs similar. 03/11: Afebrile. Seen on vent, sedated. Still requiring Levophed for BP support. WBC 16.7, Hb 8.1, NA 130, ABG 7.3 on 55% FiO2 PEEP 6. On Zosyn and Zyvox Diflucan. Dialysis today Afebrile. Still requiring Levophed for BP support sedated with Versed febrile Precedex. WBC 16.1, Hb 8.5, platelets 185, NA 133. Trach plan tentatively 03/17. O2 saturations 93% on 50% FiO2 PEEP 6. ABG 7.38 On Zosyn and Zyvox Diflucan. CC time 31 minutes Vitals/I&O Vitals/I&O: Vital Signs Date Time Temp Pulse Resp B/P (MAP) Pulse Ox O2 Delivery O2 Flow Rate FiO2 03/12/21 07:45 97 Ventilator 03/12/21 06:00 60 24 85/54 (64) 03/12/21 04:00 98.9 98.9 I & O 03/11/21 03/11/21 03/12/21 15:00 23:00 07:00 Intake Total 500 ml 2312 ml 2294 ml Output Total 0 ml 810 ml 875 ml Balance 500 ml 1502 ml 1419 ml Physical Exam Physical Exam: GENERAL: Intubated and sedated. HEENT: Normocephalic, atraumatic. Anicteric. Neck right IJ HDC clean LUNGS: Rhonchi. HEART: S1, S2. No murmurs. ABDOMEN: Obese, soft. Bowel sounds present. Nontender, nondistended. GENITOURINARY: Kern and fecal tube in place. EXTREMITIES: Edema present no cyanosis. CENTRAL NERVOUS SYSTEM: Intubated. PSYCHIATRIC: Unable to assess. Derm has pressure wounds wound pictures noted in chart. Generalized rash, PICC line , right IJ HDC clean General: No acute distress Heart: Regular rate Abdomen: Normal bowel sounds, Soft, No tenderness Extremities: No clubbing, No cyanosis, Other Skin: No rashes, No significant lesion Labs Labs: Laboratory Tests Test 03/11/21 11:55 03/11/21 16:17 03/11/21 20:45 03/11/21 23:44 Glucose (Fingerstick) 119 mg/dL (70-99) 128 mg/dL (70-99) 149 mg/dL (70-99) 174 mg/dL (70-99) Test 03/12/21 05:40 03/12/21 05:41 03/12/21 07:52 White Blood Count 16.1 x10^3/uL (4.0-11.0) Red Blood Count 2.88 x10^6/uL (3.50-5.40) Hemoglobin 8.5 g/dL (12.0-15.5) Hematocrit 25.2 % (36.0-47.0) Mean Corpuscular Volume 88 fL (79-100) Mean Corpuscular Hemoglobin 29 pg (25-35) Mean Corpuscular Hemoglobin Concent 34 g/dL (31-37) Red Cell Distribution Width 14.3 % (11.5-14.5) Platelet Count 185 x10^3/uL (140-400) Neutrophils (%) (Auto) 76 % (31-73) Lymphocytes (%) (Auto) 9 % (24-48) Monocytes (%) (Auto) 3 % (0-9) Eosinophils (%) (Auto) 11 % (0-3) Basophils (%) (Auto) 0 % (0-3) Neutrophils # (Auto) 12.2 x10^3/uL (1.8-7.7) Lymphocytes # (Auto) 1.5 x10^3/uL (1.0-4.8) Monocytes # (Auto) 0.5 x10^3/uL (0.0-1.1) Eosinophils # (Auto) 1.8 x10^3/uL (0.0-0.7) Basophils # (Auto) 0.1 x10^3/uL (0.0-0.2) Sodium Level 133 mmol/L (136-145) Potassium Level 3.8 mmol/L (3.5-5.1) Chloride Level 96 mmol/L (98-107) Carbon Dioxide Level 24 mmol/L (21-32) Anion Gap 13 (6-14) Blood Urea Nitrogen 37 mg/dL (7-20) Creatinine 4.2 mg/dL (0.6-1.0) Estimated GFR (Cockcroft-Gault) 11.4 Glucose Level 190 mg/dL (70-99) Calcium Level 7.8 mg/dL (8.5-10.1) Glucose (Fingerstick) 174 mg/dL (70-99) O2 Saturation 95 % (92-99) Arterial Blood pH 7.38 (7.35-7.45) Arterial Blood pCO2 at Patient Temp 35 mmHg (35-46) Arterial Blood pO2 at Patient Temp 79 mmHg (75-108) Arterial Blood HCO3 20 mmol/L (21-28) Arterial Blood Base Excess -5 mmol/L (-3-3) FiO2 50% vent Assessment and Plan Assessmemt and Plan Problems Medical Problems: (1) Ketoacidosis Status: Acute Comment Review of Relevant I have reviewed the following items mazin (where applicable) has been applied. Justifications for Admission Other Justification LEO GROSS MD Mar 12, 2021 08:26
--- NOTE | 2021-03-12 08:57 | PDOC ---
DATE OF SERVICE DATE: 03/12/21 TIME: 08:56 SUBJECTIVE ROS Intubated on MV OBJECTIVE Vital Signs Vital Signs Date Time Temp Pulse Resp B/P (MAP) Pulse Ox O2 Delivery O2 Flow Rate FiO2 03/12/21 07:45 97 Ventilator 03/12/21 06:00 60 24 85/54 (64) 03/12/21 04:00 98.9 98.9 I & 0 Intake and Output 03/12/21 07:00 Intake Total 5106 ml Output Total 1685 ml Balance 3421 ml IV Total 948 ml Tube Feeding 2676 ml Other 1482 ml Output Urine Total 35 ml Stool Total 1650 ml PHYSICAL EXAM Physical Exam GENERAL: Intubated and sedated. HEENT: Anicteric.Intubated Neck right IJ HDC LUNGS: decreased at bases HEART: S1, S2. No murmurs. ABDOMEN: Obese, soft. Bowel sounds present. GENITOURINARY: Kern and rectal tube in place. EXTREMITIES: Edema present no cyanosis. CENTRAL NERVOUS SYSTEM: Intubated. PSYCHIATRIC: Unable to assess. Derm has pressure wounds wound DIAGNOSIS/ASSESSMENT Assessment & Plan BOB-ATN- anuric , requiring dialysis., currently on MWF schedule,no emergent indication for dialysis today Supportive care, I/O avoid nephrotoxins, Monitor for recovery Hematuria - ? Kern sample HypoNatremia - mild DM 2 - Glucosuria + POA Metab and Resp Acidosis COVID 19 Pneumonia - Unvaccinated Acute Resp Failure- Intubated Diffuse infiltrates with little change. HTN BP low Anemia -avoid DOYLE 2/2 to Thrombogenic state COMMENT/RELEVANT DATA Meds Current Medications Medications (Trade) Dose Ordered Sig/Pepe Start Time Stop Time Status Last Admin Dose Admin Acetaminophen (Tylenol Supp) 650 mg PRN Q6HRS PRN 02/08/21 01:45 02/17/21 10:45 DC Acetaminophen (Tylenol) 650 mg PRN Q6HRS PRN 02/17/21 10:45 03/08/21 21:43 650 MG Albumin Human 200 ml @ 200 mls/hr 1X PRN PRN 03/11/21 08:15 03/11/21 14:14 DC Alteplase, Recombinant (Cathflo For Central Catheter Clearance) 1 mg 1X ONCE 02/27/21 14:30 02/27/21 14:36 DC 02/27/21 15:19 1 MG Alteplase, Recombinant (Cathflo) 2 mg 1X ONCE 02/27/21 11:00 02/27/21 11:01 DC 02/27/21 11:20 2 MG Amlodipine Besylate (Norvasc) 5 mg DAILY 02/24/21 09:00 03/09/21 10:43 DC 02/27/21 09:10 5 MG Atorvastatin Calcium (Lipitor) 40 mg HS 02/08/21 21:00 03/11/21 20:33 40 MG Atropine Sulfate (ATROPINE 0.5mg SYRINGE) 0.5 mg PRN Q5MIN PRN 02/16/21 12:00 Azithromycin 250 mg/Sodium Chloride 250 ml @ 250 mls/hr Q24H 02/14/21 13:30 02/18/21 14:29 DC 02/18/21 11:51 250 MLS/HR Benzonatate (Tessalon Perle) 100 mg [id number] 02/10/21 23:30 02/17/21 10:45 DC 02/16/21 22:07 100 MG Carvedilol (Coreg) 6.25 mg [id number] 02/08/21 20:30 02/23/21 15:50 DC 02/23/21 08:06 6.25 MG Ceftriaxone Sodium (Rocephin) 1 gm Q24H 02/14/21 13:00 02/23/21 07:34 DC 02/22/21 12:42 1 GM Dexamethasone Sodium Phosphate (Decadron) 2 mg 1X ONCE 02/27/21 09:00 02/26/21 07:15 DC Dexmedetomidine HCl 400 mcg/ Sodium Chloride 100 ml @ 0 mls/hr CONT PRN 02/27/21 09:45 03/12/21 03:29 26 MLS/HR Dextrose (Dextrose 50%-Water Syringe) 12.5 gm PRN Q15MIN PRN 03/01/21 13:00 03/01/21 12:55 12.5 GM Docusate Sodium (Colace Solution) 100 mg BID 02/23/21 12:00 03/11/21 11:51 100 MG Docusate Sodium (Colace) 100 mg PRN DAILY PRN 02/07/21 08:45 02/23/21 10:47 DC Enalaprilat (Vasotec Inj) 0.625 mg Q6HRS 02/08/21 16:15 02/09/21 16:01 DC 02/09/21 13:42 0.625 MG Enoxaparin Sodium (Lovenox 30mg Syringe) 30 mg Q24H 03/08/21 09:00 03/11/21 11:52 30 MG Enoxaparin Sodium (Lovenox 40mg Syringe) 40 mg BID 02/09/21 09:00 03/08/21 13:56 DC 03/08/21 08:26 40 MG Enoxaparin Sodium (Lovenox Per Pharmacy Prophylaxis Dosing) 1 each PRN DAILY PRN 02/09/21 06:45 Famotidine (Pepcid Vial) 20 mg DAILY 03/10/21 09:00 03/11/21 11:51 20 MG Fentanyl Citrate 30 ml @ 0 mls/hr CONT PRN 02/17/21 10:00 03/12/21 06:05 3.75 MLS/HR Fluconazole/ Sodium Chloride 100 ml @ 100 mls/hr Q24H 03/07/21 09:00 03/11/21 11:51 100 MLS/HR Furosemide (Lasix) 20 mg 1X ONCE 02/16/21 22:15 02/16/21 22:16 DC 02/16/21 22:18 20 MG Glycerin/ Hypromellose/ Polyethylene (Artificial Tears) 1 drop PRN Q1HR PRN 02/17/21 10:00 Guaifenesin (Robitussin Dm) 10 ml PRN Q6HRS PRN 02/10/21 23:30 02/16/21 09:06 10 ML Haloperidol Lactate (Haldol Inj) 2.5 mg 1X ONCE 02/07/21 02:30 02/07/21 03:56 DC Hydralazine HCl (Apresoline Inj) 10 mg PRN Q4HRS PRN 02/11/21 12:15 02/26/21 11:23 10 MG Hydromorphone HCl (Dilaudid) 2 mg PRN Q6HRS PRN 02/09/21 17:15 02/21/21 05:27 DC 02/15/21 22:00 2 MG Info (PHARMACY MONITORING -- do not chart) 1 each PRN DAILY PRN 03/11/21 08:15 Insulin Glargine (Lantus Syringe) 5 unit BID 03/06/21 09:00 03/11/21 20:34 5 UNIT Insulin Human Lispro (HumaLOG) 12 units Q6HRS 02/20/21 12:00 02/28/21 15:38 DC 02/27/21 05:41 12 UNITS Insulin Human Regular 100 ml @ 10 mls/hr 1X ONCE 02/07/21 06:30 02/07/21 16:54 DC 02/07/21 09:31 6.5 MLS/HR Insulin Human Regular 100 unit/ Sodium Chloride 101 ml @ 0 mls/hr CONT PRN PRN 02/07/21 06:00 02/07/21 16:54 DC Labetalol HCl (Normodyne Iv Push) 10 mg PRN Q2HR PRN 02/08/21 00:45 02/17/21 07:19 10 MG Lactobacillus Rhamnosus (Culturelle) 1 cap BID 02/16/21 21:00 02/17/21 10:45 DC 02/16/21 22:02 1 CAP Lidocaine HCl (Buffered Lidocaine 1%) 3 ml STK-MED ONCE 03/07/21 13:25 03/07/21 13:25 DC Linezolid (Zyvox) 600 mg BID 03/05/21 09:00 03/12/21 07:00 DC 03/11/21 20:33 600 MG Lisinopril (Prinivil) 20 mg DAILY 02/17/21 09:00 03/09/21 10:43 DC 02/27/21 09:10 20 MG Lorazepam (Ativan Inj) 0.5 mg PRN Q6HRS PRN 02/08/21 10:00 02/16/21 22:07 0.5 MG Methylprednisolone Sodium Succinate (SOLU-Medrol 125MG VIAL) 80 mg Q8HRS 02/25/21 09:00 02/26/21 07:09 DC 02/26/21 05:52 80 MG Metoclopramide HCl (Reglan Vial) 10 mg PRN Q6HRS PRN 02/08/21 00:45 02/12/21 15:51 10 MG Midazolam HCl 100 ml @ 0 mls/hr CONT PRN 02/17/21 10:00 03/11/21 20:28 10 MLS/HR Norepinephrine Bitartrate 8 mg/ Dextrose 258 ml @ 21.711 mls/ hr CONT PRN 03/06/21 13:45 03/10/21 16:30 13.7 MLS/HR Nystatin (Nystop) 1 reji BID 03/02/21 21:00 03/11/21 20:33 1 REJI Ondansetron HCl (Zofran Odt) 4 mg 1X ONCE 02/06/21 23:30 02/06/21 23:31 DC 02/06/21 23:57 4 MG Ondansetron HCl (Zofran) 4 mg 1X ONCE 02/07/21 20:00 02/07/21 20:07 DC 02/07/21 20:06 4 MG Piperacillin Sod/ Tazobactam Sod (Zosyn Per Pharmacy) 1 each PRN DAILY PRN 02/23/21 07:45 Piperacillin Sod/ Tazobactam Sod 2.25 gm/Sodium Chloride 50 ml @ 100 mls/hr Q8HRS 03/07/21 14:00 03/12/21 05:57 100 MLS/HR Piperacillin Sod/ Tazobactam Sod 4.5 gm/Sodium Chloride 100 ml @ 200 mls/hr Q6HRS 02/23/21 08:00 03/07/21 08:18 DC 03/07/21 06:12 200 MLS/HR Potassium Chloride/Water 100 ml @ 100 mls/hr PRN Q1HR PRN 02/07/21 06:00 02/07/21 16:54 DC Potassium Chloride (Klor-Con) 40 meq 1X ONCE 02/13/21 12:00 02/13/21 12:01 DC 02/13/21 13:21 40 MEQ Prochlorperazine Edisylate (Compazine) 10 mg PRN Q6HRS PRN 02/07/21 08:45 02/12/21 10:35 10 MG Propofol 100 ml @ 0 mls/hr CONT PRN 02/17/21 10:00 03/11/21 21:00 12.5 MLS/HR Remdesivir 100 mg/ Sodium Chloride 230 ml @ 460 mls/hr Q24H 02/15/21 12:00 02/18/21 12:29 DC 02/18/21 11:52 460 MLS/HR Remdesivir 200 mg/ Sodium Chloride 210 ml @ 210 mls/hr 1X ONCE 02/11/21 13:00 02/12/21 11:55 DC 02/11/21 14:33 210 MLS/HR Sennosides (Senna) 17.2 mg PRN BID PRN 02/07/21 08:45 02/22/21 08:29 17.2 MG Sodium Chloride 1,000 ml @ 400 mls/hr Q2H30M PRN 03/11/21 08:15 03/11/21 20:14 DC Sodium Chloride (Normal Saline Flush) 10 ml 1X PRN PRN 03/11/21 08:15 03/12/21 08:14 DC Succinylcholine Chloride (Anectine) 200 mg STK-MED ONCE 02/17/21 10:00 02/25/21 08:40 DC Vancomycin HCl (Vanco Per Pharmacy) 1 each PRN DAILY PRN 03/04/21 18:30 03/05/21 08:59 DC 03/04/21 19:47 1 EACH Vancomycin HCl (Vancomycin Trough Level) 1 each 1X ONCE 03/06/21 07:00 03/06/21 07:01 Cancel Vancomycin HCl 1.5 gm/Sodium Chloride 500 ml @ 250 mls/hr Q12H 03/05/21 07:30 03/05/21 08:58 DC Vancomycin HCl 1 gm/Sodium Chloride 250 ml @ 250 mls/hr Q12H 03/04/21 20:00 UNV Vancomycin HCl 2 gm/Sodium Chloride 500 ml @ 250 mls/hr 1X ONCE 03/04/21 19:00 03/04/21 20:59 DC 03/04/21 19:26 250 MLS/HR Vecuronium [place] (Norcuron Bolus) 6 mg PRN Q2HRS PRN 03/06/21 14:30 03/07/21 13:53 6 MG Vitamin A/Vitamin D (Vitamin A & D Ointment) 1 reji PRN Q1HR PRN 03/10/21 01:45 03/11/21 20:33 1 REJI Lab Laboratory Tests Test 03/11/21 11:55 03/11/21 16:17 03/11/21 20:45 03/11/21 23:44 Glucose (Fingerstick) 119 mg/dL (70-99) 128 mg/dL (70-99) 149 mg/dL (70-99) 174 mg/dL (70-99) Test 03/12/21 05:40 03/12/21 05:41 03/12/21 07:52 White Blood Count 16.1 x10^3/uL (4.0-11.0) Red Blood Count 2.88 x10^6/uL (3.50-5.40) Hemoglobin 8.5 g/dL (12.0-15.5) Hematocrit 25.2 % (36.0-47.0) Mean Corpuscular Volume 88 fL (79-100) Mean Corpuscular Hemoglobin 29 pg (25-35) Mean Corpuscular Hemoglobin Concent 34 g/dL (31-37) Red Cell Distribution Width 14.3 % (11.5-14.5) Platelet Count 185 x10^3/uL (140-400) Neutrophils (%) (Auto) 76 % (31-73) Lymphocytes (%) (Auto) 9 % (24-48) Monocytes (%) (Auto) 3 % (0-9) Eosinophils (%) (Auto) 11 % (0-3) Basophils (%) (Auto) 0 % (0-3) Neutrophils # (Auto) 12.2 x10^3/uL (1.8-7.7) Lymphocytes # (Auto) 1.5 x10^3/uL (1.0-4.8) Monocytes # (Auto) 0.5 x10^3/uL (0.0-1.1) Eosinophils # (Auto) 1.8 x10^3/uL (0.0-0.7) Basophils # (Auto) 0.1 x10^3/uL (0.0-0.2) Sodium Level 133 mmol/L (136-145) Potassium Level 3.8 mmol/L (3.5-5.1) Chloride Level 96 mmol/L (98-107) Carbon Dioxide Level 24 mmol/L (21-32) Anion Gap 13 (6-14) Blood Urea Nitrogen 37 mg/dL (7-20) Creatinine 4.2 mg/dL (0.6-1.0) Estimated GFR (Cockcroft-Gault) 11.4 Glucose Level 190 mg/dL (70-99) Calcium Level 7.8 mg/dL (8.5-10.1) Glucose (Fingerstick) 174 mg/dL (70-99) O2 Saturation 95 % (92-99) Arterial Blood pH 7.38 (7.35-7.45) Arterial Blood pCO2 at Patient Temp 35 mmHg (35-46) Arterial Blood pO2 at Patient Temp 79 mmHg (75-108) Arterial Blood HCO3 20 mmol/L (21-28) Arterial Blood Base Excess -5 mmol/L (-3-3) FiO2 50% vent Results All relevant outside records, renal labs, imaging studies, telemetry/EKG's were reviewed. Justicifation of Admission Dx: Justifications for Admission: Justification of Admission Dx: N/A GIGI CARMEN MD Mar 12, 2021 08:57
[2021-03-12] MEDS: MIDAZOLAM 100mg/100ml NS BAG 100 ML IV PRN ×2 (09:03→19:06)
[2021-03-12] MEDS: DOCUSATE 100 MG/10 ML SOLUTION. PO SCH ×2 (09:04→20:49)
[2021-03-12] MEDS: ENOXAPARIN 30 MG/0.3 ML SYRINGE. SQ SCH (09:04)
[2021-03-12] MEDS: FAMOTIDINE 20 MG/2 ML VIAL IVP SCH (09:05)
[2021-03-12] MEDS: INSULIN GLARGINE SYRINGE. SQ SCH ×2 (09:05→20:53)
--- NOTE | 2021-03-12 10:04 | PDOC ---
PULMONARY PROGRESS NOTES DATE: 03/12/21 TIME: 10:02 Subjective Patient remains on vent support Oxygen requirement is now improved. sedated on prop versed precedex vec prn levo low dose Vitals Vital Signs Date Time Temp Pulse Resp B/P (MAP) Pulse Ox O2 Delivery O2 Flow Rate FiO2 03/12/21 09:51 93 Ventilator 03/12/21 06:00 60 24 85/54 (64) 03/12/21 04:00 98.9 98.9 General: No acute distress Lungs: Clear Cardiovascular: S1 Abdomen: Soft, Other (Obese) Extremities: Other (Trace edema) Labs Laboratory Tests Test 03/10/21 13:15 03/10/21 17:20 03/10/21 21:02 03/11/21 00:25 Glucose (Fingerstick) 180 mg/dL (70-99) 141 mg/dL (70-99) 173 mg/dL (70-99) 173 mg/dL (70-99) Test 03/11/21 05:45 03/11/21 05:53 03/11/21 07:30 03/11/21 11:55 White Blood Count 16.7 x10^3/uL (4.0-11.0) Red Blood Count 2.83 x10^6/uL (3.50-5.40) Hemoglobin 8.1 g/dL (12.0-15.5) Hematocrit 24.9 % (36.0-47.0) Mean Corpuscular Volume 88 fL (79-100) Mean Corpuscular Hemoglobin 29 pg (25-35) Mean Corpuscular Hemoglobin Concent 33 g/dL (31-37) Red Cell Distribution Width 14.2 % (11.5-14.5) Platelet Count 188 x10^3/uL (140-400) Neutrophils (%) (Auto) 76 % (31-73) Lymphocytes (%) (Auto) 9 % (24-48) Monocytes (%) (Auto) 3 % (0-9) Eosinophils (%) (Auto) 12 % (0-3) Basophils (%) (Auto) 1 % (0-3) Neutrophils # (Auto) 12.7 x10^3/uL (1.8-7.7) Lymphocytes # (Auto) 1.4 x10^3/uL (1.0-4.8) Monocytes # (Auto) 0.5 x10^3/uL (0.0-1.1) Eosinophils # (Auto) 1.9 x10^3/uL (0.0-0.7) Basophils # (Auto) 0.1 x10^3/uL (0.0-0.2) Sodium Level 130 mmol/L (136-145) Potassium Level 3.7 mmol/L (3.5-5.1) Chloride Level 93 mmol/L (98-107) Carbon Dioxide Level 22 mmol/L (21-32) Anion Gap 15 (6-14) Blood Urea Nitrogen 46 mg/dL (7-20) Creatinine 5.1 mg/dL (0.6-1.0) Estimated GFR (Cockcroft-Gault) 9.1 Glucose Level 193 mg/dL (70-99) Calcium Level 8.1 mg/dL (8.5-10.1) Phosphorus Level 5.2 mg/dL (2.6-4.7) Albumin 1.3 g/dL (3.4-5.0) Glucose (Fingerstick) 180 mg/dL (70-99) 119 mg/dL (70-99) O2 Saturation 94 % (92-99) Arterial Blood pH 7.31 (7.35-7.45) Arterial Blood pCO2 at Patient Temp 37 mmHg (35-46) Arterial Blood pO2 at Patient Temp 79 mmHg (75-108) Arterial Blood HCO3 18 mmol/L (21-28) Arterial Blood Base Excess -7 mmol/L (-3-3) FiO2 55 Test 03/11/21 16:17 03/11/21 20:45 03/11/21 23:44 03/12/21 05:40 Glucose (Fingerstick) 128 mg/dL (70-99) 149 mg/dL (70-99) 174 mg/dL (70-99) White Blood Count 16.1 x10^3/uL (4.0-11.0) Red Blood Count 2.88 x10^6/uL (3.50-5.40) Hemoglobin 8.5 g/dL (12.0-15.5) Hematocrit 25.2 % (36.0-47.0) Mean Corpuscular Volume 88 fL (79-100) Mean Corpuscular Hemoglobin 29 pg (25-35) Mean Corpuscular Hemoglobin Concent 34 g/dL (31-37) Red Cell Distribution Width 14.3 % (11.5-14.5) Platelet Count 185 x10^3/uL (140-400) Neutrophils (%) (Auto) 76 % (31-73) Lymphocytes (%) (Auto) 9 % (24-48) Monocytes (%) (Auto) 3 % (0-9) Eosinophils (%) (Auto) 11 % (0-3) Basophils (%) (Auto) 0 % (0-3) Neutrophils # (Auto) 12.2 x10^3/uL (1.8-7.7) Lymphocytes # (Auto) 1.5 x10^3/uL (1.0-4.8) Monocytes # (Auto) 0.5 x10^3/uL (0.0-1.1) Eosinophils # (Auto) 1.8 x10^3/uL (0.0-0.7) Basophils # (Auto) 0.1 x10^3/uL (0.0-0.2) Sodium Level 133 mmol/L (136-145) Potassium Level 3.8 mmol/L (3.5-5.1) Chloride Level 96 mmol/L (98-107) Carbon Dioxide Level 24 mmol/L (21-32) Anion Gap 13 (6-14) Blood Urea Nitrogen 37 mg/dL (7-20) Creatinine 4.2 mg/dL (0.6-1.0) Estimated GFR (Cockcroft-Gault) 11.4 Glucose Level 190 mg/dL (70-99) Calcium Level 7.8 mg/dL (8.5-10.1) Test 03/12/21 05:41 03/12/21 07:52 Glucose (Fingerstick) 174 mg/dL (70-99) O2 Saturation 95 % (92-99) Arterial Blood pH 7.38 (7.35-7.45) Arterial Blood pCO2 at Patient Temp 35 mmHg (35-46) Arterial Blood pO2 at Patient Temp 79 mmHg (75-108) Arterial Blood HCO3 20 mmol/L (21-28) Arterial Blood Base Excess -5 mmol/L (-3-3) FiO2 50% vent Laboratory Tests Test 03/11/21 11:55 03/11/21 16:17 03/11/21 20:45 03/11/21 23:44 Glucose (Fingerstick) 119 mg/dL (70-99) 128 mg/dL (70-99) 149 mg/dL (70-99) 174 mg/dL (70-99) Test 03/12/21 05:40 03/12/21 05:41 03/12/21 07:52 White Blood Count 16.1 x10^3/uL (4.0-11.0) Red Blood Count 2.88 x10^6/uL (3.50-5.40) Hemoglobin 8.5 g/dL (12.0-15.5) Hematocrit 25.2 % (36.0-47.0) Mean Corpuscular Volume 88 fL (79-100) Mean Corpuscular Hemoglobin 29 pg (25-35) Mean Corpuscular Hemoglobin Concent 34 g/dL (31-37) Red Cell Distribution Width 14.3 % (11.5-14.5) Platelet Count 185 x10^3/uL (140-400) Neutrophils (%) (Auto) 76 % (31-73) Lymphocytes (%) (Auto) 9 % (24-48) Monocytes (%) (Auto) 3 % (0-9) Eosinophils (%) (Auto) 11 % (0-3) Basophils (%) (Auto) 0 % (0-3) Neutrophils # (Auto) 12.2 x10^3/uL (1.8-7.7) Lymphocytes # (Auto) 1.5 x10^3/uL (1.0-4.8) Monocytes # (Auto) 0.5 x10^3/uL (0.0-1.1) Eosinophils # (Auto) 1.8 x10^3/uL (0.0-0.7) Basophils # (Auto) 0.1 x10^3/uL (0.0-0.2) Sodium Level 133 mmol/L (136-145) Potassium Level 3.8 mmol/L (3.5-5.1) Chloride Level 96 mmol/L (98-107) Carbon Dioxide Level 24 mmol/L (21-32) Anion Gap 13 (6-14) Blood Urea Nitrogen 37 mg/dL (7-20) Creatinine 4.2 mg/dL (0.6-1.0) Estimated GFR (Cockcroft-Gault) 11.4 Glucose Level 190 mg/dL (70-99) Calcium Level 7.8 mg/dL (8.5-10.1) Glucose (Fingerstick) 174 mg/dL (70-99) O2 Saturation 95 % (92-99) Arterial Blood pH 7.38 (7.35-7.45) Arterial Blood pCO2 at Patient Temp 35 mmHg (35-46) Arterial Blood pO2 at Patient Temp 79 mmHg (75-108) Arterial Blood HCO3 20 mmol/L (21-28) Arterial Blood Base Excess -5 mmol/L (-3-3) FiO2 50% vent Medications Active Scripts Medications Dose Route/Sig Max Daily Dose Days Date Category Novolog Flexpen (Insulin Aspart) 100 Unit/1 Ml Insuln.pen 3-7 SQ TIDACHC 02/07/21 Reported Lisinopril 5 Mg Tablet 1 Tab PO DAILY 02/07/21 Reported Lantus Solostar (Insulin Glargine,Hum.rec.anlog) 100 Unit/1 Ml Insuln.pen 5 Unit SQ QHS 04/09/15 Reported Atorvastatin Calcium 40 Mg Tablet 40 Mg PO HS 04/09/15 Reported Comments Chest x-ray reviewed 03/09/2021. Diffuse interstitial infiltrates. No pneumothorax. No significant change cxr 03/06 reviewed 1. Significant interval increase in diffuse pulmonary infiltrate. 2. Stable support lines and tubes. Impression . IMPRESSION: 1. Acute hypoxic respiratory failure secondary to COVID-19 viral pneumonia/acute lung injury and early acute respiratory distress syndrome. S/P intubation 02/17/21,-- worsening hypoxia since 03/05, fever, low BP and BOB, New sepsis and secondary infection. Clinically improving now 2. Nonsmoker. 3. Abnormal chest x-ray consistent with COVID-19 viral pneumonia.--- 4. Diabetic ketoacidosis as initial presentation, currently better.--resolved 5. Underlying obesity contributing to hypoxia as well. 6. BOB worsening hemodialysis started 03/07 7. Fever, On broad-spectrum antibiotics. Infectious disease following. Clinically improving 8. Abnormal chest x-ray with diffuse interstitial infiltrates compatible with viral pneumonia 9. [place] in the sputum is a contamination Plan . Updated 03/12/2021 Continue current ventilatory support, setting reviewed, wean PEEP to 5 and FiO2 to 45% ABGs reviewed. Oxygenation has improved. Wean FiO2 as tolerated. levophed to keep map 65. hd started 03/07 per nephro CXR with unchanged diffuse interstitial infiltrates. Follow-up surgery recommendations for tracheostomy. I have discussed with Dr. Arzate. Plan to do tracheostomy next Tuesday. Follow chest x-ray/ABG Follow infectious disease recommendations in regards to antibiotics S/P remdesivir for full course, has also completed full course of steroids Continue tube feeding for nutritional support elevate hob DVT/GI prophylaxis: Lovenox Discussed with RN and RT Discussed with Dr. Arzate. Tracheostomy next Tuesday. critically ill but improving Updated 03/11/2021 Continue current ventilatory support, setting reviewed, on peep 8 fio2 60% titrate peep fio2 as tolerated. ABGs reviewed. Oxygenation has improved. Wean FiO2 as tolerated. levophed to keep map 65. hd started 03/07 per nephro CXR with unchanged diffuse interstitial infiltrates. Follow-up surgery recommendations for tracheostomy. I have discussed with Dr. Arzate. Plan to do tracheostomy next Tuesday. Follow chest x-ray/ABG Follow infectious disease recommendations in regards to antibiotics S/P remdesivir for full course, has also completed full course of steroids Continue tube feeding for nutritional support elevate hob DVT/GI prophylaxis: Lovenox Discussed with RN and RT Discussed with Dr. Arzate. Tracheostomy next Tuesday. critically ill but improving cct 30 min no overlap Updated 03/10/2021 Continue current ventilatory support, setting reviewed, on peep 8 fio2 60% titrate peep fio2 as tolerated. ABGs reviewed. Oxygenation has improved. Wean FiO2 as tolerated. levophed to keep map 65. hd started 03/07 per nephro CXR with unchanged diffuse interstitial infiltrates. Follow-up surgery recommendations for tracheostomy. I have discussed with Dr. Arzate. Plan to do tracheostomy next Tuesday. Follow chest x-ray/ABG Follow infectious disease recommendations in regards to antibiotics S/P remdesivir for full course, has also completed full course of steroids Continue tube feeding for nutritional support elevate hob DVT/GI prophylaxis: Lovenox Discussed with RN and RT Discussed with Dr. Emmanuel. Tracheostomy next Tuesday. critically ill cct 30 min no overlap Updated 03/09/2021 Continue current ventilatory support, setting reviewed, on peep 8 fio2 60% titrate peep fio2 as tolerated. ABGs reviewed. Oxygenation has improved. levophed to keep map 65. hd started 03/07 per nephro CXR with unchanged diffuse interstitial infiltrates. Follow-up surgery recommendations for tracheostomy. I have discussed with Dr. Arzate. For now which is put a hold to tracheostomy until she is more stable. Follow chest x-ray/ABG Follow infectious disease recommendations in regards to antibiotics S/P remdesivir for full course, has also completed full course of steroids Continue tube feeding for nutritional support elevate hob DVT/GI prophylaxis: Lovenox Discussed with RN and RT I have discussed with Dr. Arzate. For now which is put a hold to tracheostomy until she is more stable. critically ill cct 30 min no overlap Updated 03/08/2021 Continue current ventilatory support, setting reviewed, on peep 8 fio2 60% titrate peep fio2 as tolerated levophed to keep map 65. hd started 03/07 per nephro CXR with worsening infiltrates. Follow-up surgery recommendations for tracheostomy. worsening would prob need trach Follow chest x-ray/ABG Follow infectious disease recommendations in regards to antibiotics S/P remdesivir for full course, has also completed full course of steroids Continue tube feeding for nutritional support elevate hob DVT/GI prophylaxis: Lovenox Discussed with RN and RT critically ill cct 30 min no overlap Updated 03/07/2021 Continue current ventilatory support, setting reviewed, will increase peep to 7 abg reviewed will increase peep to 8 rr to 24 levophed to keep map 65. Monitor renal function closely. cr 4.2 today renal consulted they will start dialysis today Oxygen requirement has increased. CXR with worsening infiltrates., no CHF Follow-up surgery recommendations for tracheostomy. Follow chest x-ray/ABG Follow infectious disease recommendations in regards to antibiotics S/P remdesivir for full course, has also completed full course of steroids Continue tube feeding for nutritional support DVT/GI prophylaxis: Lovenox Discussed with RN and RT critically ill cct 30 min no overlap Updated 03/06/2021 Continue current ventilatory support 18/450/55/5, Oxygen requirement has increased. CXR with worsening infiltrates., no CHF pt. still unable to tolerate sedation vacation/weaning trial. will hold further trials till clinically better Follow-up surgery recommendations for tracheostomy. May have to hold for now Follow chest x-ray/ABG Follow infectious disease recommendations in regards to antibiotics IVF bolus and low dose levophed. Monitor renal function closely. consult renal S/P remdesivir for full course, has also completed full course of steroids Continue tube feeding for nutritional support DVT/GI prophylaxis: Lovenox Discussed with RN and RT Critical care time 30 minutes addend: cxr with increase interstitial infiltrates c/w COVID Updated 03/05/2021 Continue current ventilatory support 18/450/40/5, pt. still unable to tolerate sedation vacation/weaning trial Follow-up surgery recommendations for tracheostomy Follow chest x-ray/ABG as needed--marginal PO2 no room for weaning Follow infectious disease recommendations in regards to antibiotics S/P remdesivir for full course, has also completed full course of steroids Continue tube feeding for nutritional support DVT/GI prophylaxis: Lovenox Discussed with RN and R Critical care time 30 minutes EMILY POSADA MD Mar 12, 2021 10:04
[2021-03-12] MEDS: FLUCONAZOLE 200MG/100ML PREMIX 100 ML IV SCH (11:01)
[2021-03-12] MEDS: NYSTATIN TOPICAL POWDER 15GM BOTTLE. TP SCH ×2 (11:01→20:50)
--- NOTE | 2021-03-12 13:18 | PDOC2 ---
GI CONSULT Date of Service: DATE: 03/12/21 TIME: 13:05 Reason For Consult: PEG HPI: HPI: 46 y/o female w/ COVID resp and renal failure. Intubated and sedated in ICU w/ plans to initiate HD. Tolerating NG feeds @ 30cc/hr. On IV H2 patti and has received Reglan earlier in admission. Has rectal tube w/ negative C Diff on 03/06. Tentative plans for tracheostomy placement on 03/17 and we are asked to see for PEG placement. No history from pt. PMH: PMH: per chart: HTN, DM, , hysterectomy, cholecystectomy ROS: unable to obtain Vitals: Vitals: Vital Signs Date Time Temp Pulse Resp B/P (MAP) Pulse Ox O2 Delivery O2 Flow Rate FiO2 03/12/21 12:00 98.0 65 24 96/58 (71) 95 Ventilator 98.0 Labs: Labs: Laboratory Tests Test 03/11/21 16:17 03/11/21 20:45 03/11/21 23:44 03/12/21 05:40 Glucose (Fingerstick) 128 mg/dL (70-99) 149 mg/dL (70-99) 174 mg/dL (70-99) White Blood Count 16.1 x10^3/uL (4.0-11.0) Red Blood Count 2.88 x10^6/uL (3.50-5.40) Hemoglobin 8.5 g/dL (12.0-15.5) Hematocrit 25.2 % (36.0-47.0) Mean Corpuscular Volume 88 fL (79-100) Mean Corpuscular Hemoglobin 29 pg (25-35) Mean Corpuscular Hemoglobin Concent 34 g/dL (31-37) Red Cell Distribution Width 14.3 % (11.5-14.5) Platelet Count 185 x10^3/uL (140-400) Neutrophils (%) (Auto) 76 % (31-73) Lymphocytes (%) (Auto) 9 % (24-48) Monocytes (%) (Auto) 3 % (0-9) Eosinophils (%) (Auto) 11 % (0-3) Basophils (%) (Auto) 0 % (0-3) Neutrophils # (Auto) 12.2 x10^3/uL (1.8-7.7) Lymphocytes # (Auto) 1.5 x10^3/uL (1.0-4.8) Monocytes # (Auto) 0.5 x10^3/uL (0.0-1.1) Eosinophils # (Auto) 1.8 x10^3/uL (0.0-0.7) Basophils # (Auto) 0.1 x10^3/uL (0.0-0.2) Sodium Level 133 mmol/L (136-145) Potassium Level 3.8 mmol/L (3.5-5.1) Chloride Level 96 mmol/L (98-107) Carbon Dioxide Level 24 mmol/L (21-32) Anion Gap 13 (6-14) Blood Urea Nitrogen 37 mg/dL (7-20) Creatinine 4.2 mg/dL (0.6-1.0) Estimated GFR (Cockcroft-Gault) 11.4 Glucose Level 190 mg/dL (70-99) Calcium Level 7.8 mg/dL (8.5-10.1) Magnesium Level 1.8 mg/dL (1.8-2.4) Test 03/12/21 05:41 03/12/21 07:52 03/12/21 11:32 Glucose (Fingerstick) 174 mg/dL (70-99) 194 mg/dL (70-99) O2 Saturation 95 % (92-99) Arterial Blood pH 7.38 (7.35-7.45) Arterial Blood pCO2 at Patient Temp 35 mmHg (35-46) Arterial Blood pO2 at Patient Temp 79 mmHg (75-108) Arterial Blood HCO3 20 mmol/L (21-28) Arterial Blood Base Excess -5 mmol/L (-3-3) FiO2 50% vent RESPIRATORY CULTURE Final Final MODERATE FINAL ID= [SOLO ALBICANS] SOLO ALBICANS URINE CULTURE Final Final GREATER THAN 100,000 CFU/ML YEAST SPECIES on 03/06/21 at 0834 FINAL ID= [SOLO ALBICANS] BLOOD CULTURE Final NO GROWTH AFTER 5 DAYS Allergies: Coded Allergies: venom-honey bee (Verified Allergy, Severe, Shortness of Air, 04/21/15) oxycodone (Unverified Allergy, Intermediate, Itching, 04/21/15) shellfish derived (Unverified Allergy, Intermediate, Itching, 04/21/15) Medications: see emr Imaging: Imaging: CXR 03/09 IMPRESSION: 1. Tubes and lines unchanged. 2. Diffuse infiltrates with little change. PE: GEN: intubated HEENT: Atraumatic LUNGS: diminished, on vent HEART: RRR ABD: NABS, soft, rectal tube w/ liquid brown stool EXTREMITY/SKIN: SCDs NEURO/PSYCH: sedated A/P: A/P: COVID-19 + 02/06/21 ("recovered") Resp and renal failure Anemia, elevated LFTs (checked 03/10) +solo (urine, sputum) S/p cholecystectomy -- Tolerating tube feeds. Possible PEG after trach, will follow along. Check INR and anemia parameters, follow LFTs and Hgb, consider liver imaging. JANELLE MONTENEGRO Mar 12, 2021 13:18
[2021-03-12] MEDS: ATORVASTATIN CALCIUM 40 MG TABLET. PO SCH (20:49)
[2021-03-12] MEDS: NOREPINEPHRINE VIAL 8 MG in IV DEXTROSE 5% 250 ML IV PRN (20:59)
[2021-03-13] VITALS (24 sets, daily range): BP systolic 83–146; BP diastolic 51–84
[2021-03-13] MEDS: INSULIN LISPRO 300 UNITS/3 ML VIAL. SQ SCH ×5 (00:02→23:46)
[2021-03-13] MEDS: PROPOFOL 100 ML IV PRN ×3 (01:58→17:44)
[2021-03-13] MEDS: DEXMEDETOMIDINE 400 MCG in IV NORMAL SALINE 100ML 96 ML IV PRN ×6 (02:42→21:50)
[2021-03-13] MEDS: MIDAZOLAM 100mg/100ml NS BAG 100 ML IV PRN ×3 (03:58→20:30)
[2021-03-13] MEDS: PIPERACILLIN/TAZOBACTAM 2.25 GM in IV NORMAL SALINE 50ML 50 ML IV SCH ×3 (06:06→21:38)
[2021-03-13] MEDS: HEPARIN for SUB-Q USE 5,000 UNIT/ML VIAL. SQ SCH ×3 (06:07→21:39)
[2021-03-13 06:32] LABS: PROTHROMBIN TIME PATIENT 13.8 SEC (11.7-14.0)
[2021-03-13 06:48] LABS: ALBUMIN 1.2 g/dL (3.4-5.0); DIRECT BILIRUBIN 0.3 mg/dL (0.0-0.2); TOTAL BILIRUBIN 0.5 mg/dL (0.2-1.0); TOTAL PROTEIN 6.5 g/dL (6.4-8.2)
--- NOTE | 2021-03-13 07:54 | PDOC ---
PULMONARY PROGRESS NOTES DATE: 03/13/21 TIME: 07:54 Subjective No overnight events, patient currently sedated, vent support On low-dose Levophed 45% FiO2 6 PEEP Vitals Vital Signs Date Time Temp Pulse Resp B/P (MAP) Pulse Ox O2 Delivery O2 Flow Rate FiO2 03/13/21 07:00 70 24 138/83 (101) 96 Ventilator 03/13/21 04:00 98.0 98.0 Lungs: Clear Cardiovascular: S1 Abdomen: Soft Labs Laboratory Tests Test 03/11/21 11:55 03/11/21 16:17 03/11/21 20:45 03/11/21 23:44 Glucose (Fingerstick) 119 mg/dL (70-99) 128 mg/dL (70-99) 149 mg/dL (70-99) 174 mg/dL (70-99) Test 03/12/21 05:40 03/12/21 05:41 03/12/21 07:52 03/12/21 11:32 White Blood Count 16.1 x10^3/uL (4.0-11.0) Red Blood Count 2.88 x10^6/uL (3.50-5.40) Hemoglobin 8.5 g/dL (12.0-15.5) Hematocrit 25.2 % (36.0-47.0) Mean Corpuscular Volume 88 fL (79-100) Mean Corpuscular Hemoglobin 29 pg (25-35) Mean Corpuscular Hemoglobin Concent 34 g/dL (31-37) Red Cell Distribution Width 14.3 % (11.5-14.5) Platelet Count 185 x10^3/uL (140-400) Neutrophils (%) (Auto) 76 % (31-73) Lymphocytes (%) (Auto) 9 % (24-48) Monocytes (%) (Auto) 3 % (0-9) Eosinophils (%) (Auto) 11 % (0-3) Basophils (%) (Auto) 0 % (0-3) Neutrophils # (Auto) 12.2 x10^3/uL (1.8-7.7) Lymphocytes # (Auto) 1.5 x10^3/uL (1.0-4.8) Monocytes # (Auto) 0.5 x10^3/uL (0.0-1.1) Eosinophils # (Auto) 1.8 x10^3/uL (0.0-0.7) Basophils # (Auto) 0.1 x10^3/uL (0.0-0.2) Sodium Level 133 mmol/L (136-145) Potassium Level 3.8 mmol/L (3.5-5.1) Chloride Level 96 mmol/L (98-107) Carbon Dioxide Level 24 mmol/L (21-32) Anion Gap 13 (6-14) Blood Urea Nitrogen 37 mg/dL (7-20) Creatinine 4.2 mg/dL (0.6-1.0) Estimated GFR (Cockcroft-Gault) 11.4 Glucose Level 190 mg/dL (70-99) Calcium Level 7.8 mg/dL (8.5-10.1) Magnesium Level 1.8 mg/dL (1.8-2.4) Glucose (Fingerstick) 174 mg/dL (70-99) 194 mg/dL (70-99) O2 Saturation 95 % (92-99) Arterial Blood pH 7.38 (7.35-7.45) Arterial Blood pCO2 at Patient Temp 35 mmHg (35-46) Arterial Blood pO2 at Patient Temp 79 mmHg (75-108) Arterial Blood HCO3 20 mmol/L (21-28) Arterial Blood Base Excess -5 mmol/L (-3-3) FiO2 50% vent Test 03/12/21 17:40 03/12/21 23:41 03/13/21 05:20 03/13/21 06:04 Glucose (Fingerstick) 185 mg/dL (70-99) 175 mg/dL (70-99) 165 mg/dL (70-99) Prothrombin Time 13.8 SEC (11.7-14.0) Prothromb Time International Ratio 1.1 (0.8-1.1) Iron Level 43 ug/dL (50-170) Total Iron Binding Capacity 156 ug/dL (250-450) Iron Saturation 28 % (15-34) Total Bilirubin 0.5 mg/dL (0.2-1.0) Direct Bilirubin 0.3 mg/dL (0.0-0.2) Aspartate Amino Transf (AST/SGOT) 90 U/L (15-37) Alanine Aminotransferase (ALT/SGPT) 112 U/L (14-59) Alkaline Phosphatase 299 U/L (46-116) Total Protein 6.5 g/dL (6.4-8.2) Albumin 1.2 g/dL (3.4-5.0) Laboratory Tests Test 03/12/21 11:32 03/12/21 17:40 03/12/21 23:41 03/13/21 05:20 Glucose (Fingerstick) 194 mg/dL (70-99) 185 mg/dL (70-99) 175 mg/dL (70-99) Prothrombin Time 13.8 SEC (11.7-14.0) Prothromb Time International Ratio 1.1 (0.8-1.1) Iron Level 43 ug/dL (50-170) Total Iron Binding Capacity 156 ug/dL (250-450) Iron Saturation 28 % (15-34) Total Bilirubin 0.5 mg/dL (0.2-1.0) Direct Bilirubin 0.3 mg/dL (0.0-0.2) Aspartate Amino Transf (AST/SGOT) 90 U/L (15-37) Alanine Aminotransferase (ALT/SGPT) 112 U/L (14-59) Alkaline Phosphatase 299 U/L (46-116) Total Protein 6.5 g/dL (6.4-8.2) Albumin 1.2 g/dL (3.4-5.0) Test 03/13/21 06:04 Glucose (Fingerstick) 165 mg/dL (70-99) Medications Active Scripts Medications Dose Route/Sig Max Daily Dose Days Date Category Novolog Flexpen (Insulin Aspart) 100 Unit/1 Ml Insuln.pen 3-7 SQ TIDACHC 02/07/21 Reported Lisinopril 5 Mg Tablet 1 Tab PO DAILY 02/07/21 Reported Lantus Solostar (Insulin Glargine,Hum.rec.anlog) 100 Unit/1 Ml Insuln.pen 5 Unit SQ QHS 04/09/15 Reported Atorvastatin Calcium 40 Mg Tablet 40 Mg PO HS 04/09/15 Reported Impression . IMPRESSION: 1. Acute hypoxic respiratory failure secondary to COVID-19 viral pneumonia/acute lung injury and early acute respiratory distress syndrome. S/P intubation 02/17/21 2. Nonsmoker. 3. Abnormal chest x-ray consistent with COVID-19 viral pneumonia.--- 4. Diabetic ketoacidosis 5. Underlying obesity contributing to hypoxia as well. 6. BOB worsening hemodialysis started 03/07 7. Fever, per ID 8. Abnormal chest x-ray with diffuse interstitial infiltrates compatible with viral pneumonia 9. [place] in the sputum is a contamination 10. Septic shock Chest x-ray reviewed IMPRESSION: 1. Stable diffuse bilateral opacities. 2. Stable life support devices. Plan . Updated 03/13 Discussed with RN Continue current support Titrate norepinephrine down Trach schedule for next week Antibiotics per ID Status post steroids and remdesivir Nutritional support DVT GI prophylaxis Updated 03/12/2021 Continue current ventilatory support, setting reviewed, wean PEEP to 5 and FiO2 to 45% ABGs reviewed. Oxygenation has improved. Wean FiO2 as tolerated. levophed to keep map 65. hd started 03/07 per nephro CXR with unchanged diffuse interstitial infiltrates. Follow-up surgery recommendations for tracheostomy. I have discussed with Dr. Arzate. Plan to do tracheostomy next Tuesday. Follow chest x-ray/ABG Follow infectious disease recommendations in regards to antibiotics S/P remdesivir for full course, has also completed full course of steroids Continue tube feeding for nutritional support elevate hob DVT/GI prophylaxis: Lovenox Discussed with RN and RT Discussed with Dr. Arzate. Tracheostomy next Tuesday. critically ill but improving MONTEZ OROPEZA MD Mar 13, 2021 07:54
--- NOTE | 2021-03-13 08:00 | RAD ---
XR CHEST 1V INDICATION: Reason: RF 107 / Spl. Instructions: / History: . COMPARISON STUDY: 03/09/2021. FINDINGS: Life Support Devices: Stable endotracheal tube, enteric tube, right PICC, right IJ dual-lumen cathete r. Lungs: Low lung volume. Stable diffuse bilateral opacities. Pleura: No pleural effusion or pneumothorax. Heart and Mediastinum: Stable cardiomediastinal silhouette and great vessels. Bones and Soft Tissues: Stable regional skeleton and soft tissues. IMPRESSION: 1. Stable diffuse bilateral opacities. 2. Stable life support devices. Electronically signed by: Michael Dominique MD (03/13/2021 7:58 AM) [id number]
[2021-03-13 08:39] LABS: BASE EXCESS ABG -8 mmol/L (-3-3); HCO3 ABG 18 mmol/L (21-28); PCO2 ABG 37 mmHg (35-46); PO2 ABG 61 mmHg (75-108); SAT O2 ABG 88 % (92-99)
[2021-03-13 08:41] LABS: FIO2 ABG 45
--- NOTE | 2021-03-13 09:01 | PDOC ---
DATE OF SERVICE DATE: 03/13/21 TIME: 08:59 SUBJECTIVE ROS Intubated on MV No Overnight events OBJECTIVE Vital Signs Vital Signs Date Time Temp Pulse Resp B/P (MAP) Pulse Ox O2 Delivery O2 Flow Rate FiO2 03/13/21 08:28 96 Ventilator 03/13/21 07:00 70 24 138/83 (101) 03/13/21 04:00 98.0 98.0 I & 0 Intake and Output 03/13/21 07:00 Intake Total 4277.17 ml Output Total 210 ml Balance 4067.17 ml IV Total 1806.17 ml Tube Feeding 2221 ml Other 250 ml Output Urine Total 10 ml Stool Total 200 ml PHYSICAL EXAM Physical Exam GENERAL: Intubated and sedated. HEENT: Anicteric.Intubated Neck right IJ HDC LUNGS: decreased at bases HEART: S1, S2. No murmurs. ABDOMEN: Obese, soft. Bowel sounds present. GENITOURINARY: Kern and rectal tube in place. EXTREMITIES: Edema present no cyanosis. CENTRAL NERVOUS SYSTEM: Intubated. PSYCHIATRIC: Unable to assess. Derm has pressure wounds wound DIAGNOSIS/ASSESSMENT Assessment & Plan BOB-ATN- anuric , requiring dialysis., currently on MWF schedule, dialysis today, discussed treatment plan with Rene Supportive care, I/O avoid nephrotoxins, Monitor for recovery Hematuria - ? Kern sample HypoNatremia - mild DM 2 - Glucosuria + POA Metab and Resp Acidosis COVID 19 Pneumonia - Unvaccinated Acute Resp Failure- Intubated Diffuse infiltrates with little change. HTN BP low Anemia -avoid DOYLE 2/2 to Thrombogenic state COMMENT/RELEVANT DATA Meds Current Medications Medications (Trade) Dose Ordered Sig/Pepe Start Time Stop Time Status Last Admin Dose Admin Acetaminophen (Tylenol Supp) 650 mg PRN Q6HRS PRN 02/08/21 01:45 02/17/21 10:45 DC Acetaminophen (Tylenol) 650 mg PRN Q6HRS PRN 02/17/21 10:45 03/08/21 21:43 650 MG Albumin Human 200 ml @ 200 mls/hr 1X PRN PRN 03/11/21 08:15 03/11/21 14:14 DC Alteplase, Recombinant (Cathflo For Central Catheter Clearance) 1 mg 1X ONCE 02/27/21 14:30 02/27/21 14:36 DC 02/27/21 15:19 1 MG Alteplase, Recombinant (Cathflo) 2 mg 1X ONCE 02/27/21 11:00 02/27/21 11:01 DC 02/27/21 11:20 2 MG Amlodipine Besylate (Norvasc) 5 mg DAILY 02/24/21 09:00 03/09/21 10:43 DC 02/27/21 09:10 5 MG Atorvastatin Calcium (Lipitor) 40 mg HS 02/08/21 21:00 03/12/21 20:49 40 MG Atropine Sulfate (ATROPINE 0.5mg SYRINGE) 0.5 mg PRN Q5MIN PRN 02/16/21 12:00 Azithromycin 250 mg/Sodium Chloride 250 ml @ 250 mls/hr Q24H 02/14/21 13:30 02/18/21 14:29 DC 02/18/21 11:51 250 MLS/HR Benzonatate (Tessalon Perle) 100 mg [id number] 02/10/21 23:30 02/17/21 10:45 DC 02/16/21 22:07 100 MG Carvedilol (Coreg) 6.25 mg [id number] 02/08/21 20:30 02/23/21 15:50 DC 02/23/21 08:06 6.25 MG Ceftriaxone Sodium (Rocephin) 1 gm Q24H 02/14/21 13:00 02/23/21 07:34 DC 02/22/21 12:42 1 GM Dexamethasone Sodium Phosphate (Decadron) 2 mg 1X ONCE 02/27/21 09:00 02/26/21 07:15 DC Dexmedetomidine HCl 400 mcg/ Sodium Chloride 100 ml @ 0 mls/hr CONT PRN 02/27/21 09:45 03/13/21 06:27 26 MLS/HR Dextrose (Dextrose 50%-Water Syringe) 12.5 gm PRN Q15MIN PRN 03/01/21 13:00 03/01/21 12:55 12.5 GM Docusate Sodium (Colace Solution) 100 mg BID 02/23/21 12:00 03/12/21 20:49 100 MG Docusate Sodium (Colace) 100 mg PRN DAILY PRN 02/07/21 08:45 02/23/21 10:47 DC Enalaprilat (Vasotec Inj) 0.625 mg Q6HRS 02/08/21 16:15 02/09/21 16:01 DC 02/09/21 13:42 0.625 MG Enoxaparin Sodium (Lovenox 30mg Syringe) 30 mg Q24H 03/08/21 09:00 03/12/21 15:38 DC 03/12/21 09:04 30 MG Enoxaparin Sodium (Lovenox 40mg Syringe) 40 mg BID 02/09/21 09:00 03/08/21 13:56 DC 03/08/21 08:26 40 MG Enoxaparin Sodium (Lovenox Per Pharmacy Prophylaxis Dosing) 1 each PRN DAILY PRN 02/09/21 06:45 03/12/21 15:38 DC Famotidine (Pepcid Vial) 20 mg DAILY 03/10/21 09:00 03/12/21 09:05 20 MG Fentanyl Citrate 30 ml @ 0 mls/hr CONT PRN 02/17/21 10:00 03/13/21 05:05 3.75 MLS/HR Fluconazole/ Sodium Chloride 100 ml @ 100 mls/hr Q24H 03/07/21 09:00 03/12/21 11:01 100 MLS/HR Furosemide (Lasix) 20 mg 1X ONCE 02/16/21 22:15 02/16/21 22:16 DC 02/16/21 22:18 20 MG Glycerin/ Hypromellose/ Polyethylene (Artificial Tears) 1 drop PRN Q1HR PRN 02/17/21 10:00 Guaifenesin (Robitussin Dm) 10 ml PRN Q6HRS PRN 02/10/21 23:30 02/16/21 09:06 10 ML Haloperidol Lactate (Haldol Inj) 2.5 mg 1X ONCE 02/07/21 02:30 02/07/21 03:56 DC Heparin Sodium (Porcine) (Heparin Sodium) 5,000 unit Q8HRS 03/13/21 06:00 03/13/21 06:07 5,000 UNIT Hydralazine HCl (Apresoline Inj) 10 mg PRN Q4HRS PRN 02/11/21 12:15 02/26/21 11:23 10 MG Hydromorphone HCl (Dilaudid) 2 mg PRN Q6HRS PRN 02/09/21 17:15 8/14/21 05:27 DC 02/15/21 22:00 2 MG Info (PHARMACY MONITORING -- do not chart) 1 each PRN DAILY PRN 03/11/21 08:15 Insulin Glargine (Lantus Syringe) 5 unit BID 03/06/21 09:00 03/12/21 20:53 5 UNIT Insulin Human Lispro (HumaLOG) 12 units Q6HRS 02/20/21 12:00 02/28/21 15:38 DC 02/27/21 05:41 12 UNITS Insulin Human Regular 100 ml @ 10 mls/hr 1X ONCE 02/07/21 06:30 02/07/21 16:54 DC 02/07/21 09:31 6.5 MLS/HR Insulin Human Regular 100 unit/ Sodium Chloride 101 ml @ 0 mls/hr CONT PRN PRN 02/07/21 06:00 02/07/21 16:54 DC Labetalol HCl (Normodyne Iv Push) 10 mg PRN Q2HR PRN 02/08/21 00:45 02/17/21 07:19 10 MG Lactobacillus Rhamnosus (Culturelle) 1 cap BID 02/16/21 21:00 02/17/21 10:45 DC 02/16/21 22:02 1 CAP Lidocaine HCl (Buffered Lidocaine 1%) 3 ml STK-MED ONCE 03/07/21 13:25 03/07/21 13:25 DC Linezolid (Zyvox) 600 mg BID 03/05/21 09:00 03/12/21 07:00 DC 03/11/21 20:33 600 MG Lisinopril (Prinivil) 20 mg DAILY 02/17/21 09:00 03/09/21 10:43 DC 02/27/21 09:10 20 MG Lorazepam (Ativan Inj) 0.5 mg PRN Q6HRS PRN 02/08/21 10:00 02/16/21 22:07 0.5 MG Methylprednisolone Sodium Succinate (SOLU-Medrol 125MG VIAL) 80 mg Q8HRS 02/25/21 09:00 02/26/21 07:09 DC 02/26/21 05:52 80 MG Metoclopramide HCl (Reglan Vial) 10 mg PRN Q6HRS PRN 02/08/21 00:45 8/21 15:51 10 MG Midazolam HCl 100 ml @ 0 mls/hr CONT PRN 02/17/21 10:00 03/13/21 03:58 10 MLS/HR Norepinephrine Bitartrate 8 mg/ Dextrose 258 ml @ 21.711 mls/ hr CONT PRN 03/06/21 13:45 03/12/21 20:59 4.342 MLS/HR Nystatin (Nystop) 1 reji BID 03/02/21 21:00 03/12/21 20:50 1 REJI Ondansetron HCl (Zofran Odt) 4 mg 1X ONCE 02/06/21 23:30 02/06/21 23:31 DC 02/06/21 23:57 4 MG Ondansetron HCl (Zofran) 4 mg 1X ONCE 02/07/21 20:00 02/07/21 20:07 DC 02/07/21 20:06 4 MG Piperacillin Sod/ Tazobactam Sod (Zosyn Per Pharmacy) 1 each PRN DAILY PRN 02/23/21 07:45 Piperacillin Sod/ Tazobactam Sod 2.25 gm/Sodium Chloride 50 ml @ 100 mls/hr Q8HRS 03/07/21 14:00 03/13/21 06:06 100 MLS/HR Piperacillin Sod/ Tazobactam Sod 4.5 gm/Sodium Chloride 100 ml @ 200 mls/hr Q6HRS 02/23/21 08:00 03/07/21 08:18 DC 03/07/21 06:12 200 MLS/HR Potassium Chloride/Water 100 ml @ 100 mls/hr PRN Q1HR PRN 02/07/21 06:00 02/07/21 16:54 DC Potassium Chloride (Klor-Con) 40 meq 1X ONCE 02/13/21 12:00 02/13/21 12:01 DC 02/13/21 13:21 40 MEQ Prochlorperazine Edisylate (Compazine) 10 mg PRN Q6HRS PRN 02/07/21 08:45 02/12/21 10:35 10 MG Propofol 100 ml @ 0 mls/hr CONT PRN 02/17/21 10:00 03/13/21 01:58 12.5 MLS/HR Remdesivir 100 mg/ Sodium Chloride 230 ml @ 460 mls/hr Q24H 02/15/21 12:00 02/18/21 12:29 DC 02/18/21 11:52 460 MLS/HR Remdesivir 200 mg/ Sodium Chloride 210 ml @ 210 mls/hr 1X ONCE 02/11/21 13:00 02/12/21 11:55 DC 02/11/21 14:33 210 MLS/HR Sennosides (Senna) 17.2 mg PRN BID PRN 02/07/21 08:45 02/22/21 08:29 17.2 MG Sodium Chloride 1,000 ml @ 400 mls/hr Q2H30M PRN 03/11/21 08:15 03/11/21 20:14 DC Sodium Chloride (Normal Saline Flush) 10 ml 1X PRN PRN 03/11/21 08:15 03/12/21 08:14 DC Succinylcholine Chloride (Anectine) 200 mg STK-MED ONCE 02/17/21 10:00 02/25/21 08:40 DC Vancomycin HCl (Vanco Per Pharmacy) 1 each PRN DAILY PRN 03/04/21 18:30 03/05/21 08:59 DC 03/04/21 19:47 1 EACH Vancomycin HCl (Vancomycin Trough Level) 1 each 1X ONCE 03/06/21 07:00 03/06/21 07:01 Cancel Vancomycin HCl 1.5 gm/Sodium Chloride 500 ml @ 250 mls/hr Q12H 03/05/21 07:30 03/05/21 08:58 DC Vancomycin HCl 1 gm/Sodium Chloride 250 ml @ 250 mls/hr Q12H 03/04/21 20:00 UNV Vancomycin HCl 2 gm/Sodium Chloride 500 ml @ 250 mls/hr 1X ONCE 03/04/21 19:00 03/04/21 20:59 DC 03/04/21 19:26 250 MLS/HR Vecuronium [place] (Norcuron Bolus) 6 mg PRN Q2HRS PRN 03/06/21 14:30 03/07/21 13:53 6 MG Vitamin A/Vitamin D (Vitamin A & D Ointment) 1 reji PRN Q1HR PRN 03/10/21 01:45 03/11/21 20:33 1 REJI Lab Laboratory Tests Test 03/12/21 11:32 03/12/21 17:40 03/12/21 23:41 03/13/21 05:20 Glucose (Fingerstick) 194 mg/dL (70-99) 185 mg/dL (70-99) 175 mg/dL (70-99) Prothrombin Time 13.8 SEC (11.7-14.0) Prothromb Time International Ratio 1.1 (0.8-1.1) Iron Level 43 ug/dL (50-170) Total Iron Binding Capacity 156 ug/dL (250-450) Iron Saturation 28 % (15-34) Total Bilirubin 0.5 mg/dL (0.2-1.0) Direct Bilirubin 0.3 mg/dL (0.0-0.2) Aspartate Amino Transf (AST/SGOT) 90 U/L (15-37) Alanine Aminotransferase (ALT/SGPT) 112 U/L (14-59) Alkaline Phosphatase 299 U/L (46-116) Total Protein 6.5 g/dL (6.4-8.2) Albumin 1.2 g/dL (3.4-5.0) Test 03/13/21 06:04 03/13/21 08:35 Glucose (Fingerstick) 165 mg/dL (70-99) O2 Saturation 88 % (92-99) Arterial Blood pH 7.31 (7.35-7.45) Arterial Blood pCO2 at Patient Temp 37 mmHg (35-46) Arterial Blood pO2 at Patient Temp 61 mmHg (75-108) Arterial Blood HCO3 18 mmol/L (21-28) Arterial Blood Base Excess -8 mmol/L (-3-3) FiO2 45 Results All relevant outside records, renal labs, imaging studies, telemetry/EKG's were reviewed. Justicifation of Admission Dx: Justifications for Admission: Justification of Admission Dx: N/A GIGI CARMEN MD Mar 13, 2021 09:01
[2021-03-13] MEDS: FAMOTIDINE 20 MG/2 ML VIAL IVP SCH (09:13)
[2021-03-13] MEDS: FLUCONAZOLE 200MG/100ML PREMIX 100 ML IV SCH (09:13)
[2021-03-13] MEDS: VITS A & D/LANOLIN TOPICAL OINTMENT 42GM TUBE. TP PRN (09:14)
[2021-03-13] MEDS: NYSTATIN TOPICAL POWDER 15GM BOTTLE. TP SCH ×2 (09:14→20:39)
[2021-03-13] MEDS: INSULIN GLARGINE SYRINGE. SQ SCH ×2 (09:14→20:38)
--- NOTE | 2021-03-13 10:41 | PDOC ---
[employer] PROGRESS NOTE Date of Service DOS: DATE: 03/13/21 TIME: 10:30 Chief Complaint Chief Complaint Hypotension COVID-19 positive infection Tractable nausea vomiting DKA Combined metabolic and respiratory acidosis Acute electrolyte derangementhyponatremia, hypochloremia due to volume depletion Hyperglycemia uncontrolled BOB due to vasomotor nephropathy Erythrocytosis Reglan for diabetic gastroparesis Candiduria Sacral decubitus ulcer Started on fluconazole today and Zosyn Continue Covid measures Patient intubated Pulmonary following SCD for DVT prophylaxis Protonix GI prophylaxis ADA diet Full code Discussed with RN and SW Disposition inpatient management as above Surrogate decision maker is Brian Whitmore History of Present Illness History of Present Illness Ms Borges is a 46 year old female who presented with nausea/vomiting since 7 AM 02/06/2021 in the morning. Patient stated that her recently tested positive for Covid. She states that he "coughed in my face because he thought it was funny." She reports subjective fevers and chills and nausea/vomiting. Denies sore throat, cough, shortness of breath. No chest pain. Does have some upper abdominal discomfort after vomiting, that she attributes to muscular strain. She was not vaccinated for Covid. 02/08: No acute events overnight. Patient seen and examined bedside and resting comfortably. Continues to complain of nausea not able to tolerate any diet at this time. Saturating 98% on room air. Patient's chart, labs, images were reviewed and discussed with RN 02/09: Afebrile, currently breathing on room air. Still with complaints of nausea and vomiting x3 today. States that she has history of similar symptoms that have been mildly improved with IV Dilaudid. 02/10: Patient febrile today with T-max 102.2 F. She still admits to nausea, denies any further vomiting. We will continue to provide supportive care and monitor for any recurrent fevers overnight. Patient continues to improve may discharge tomorrow to continue self-isolation. 02/11: Febrile overnight, T-max 102.3 F. She did become hypoxic overnight, currently breathing on 4 L nasal cannula. Also admits to associated vomiting or diarrhea overnight. Discussed with RN, will initiate remdesivir and closely monitor LFTs. IV Decadron, and prophylactic antibiotics. 02/12: Low-grade fever overnight, T-max 99.7. Currently breathing on room air. Will discontinue remdesivir, steroids, and antibiotics; will observe overnight. Still with complaints of vomiting x1 and diarrhea. We will continue to provide supportive care and hope to discharge in the next day or so. 02/13: Afebrile. Still complains of intermittent diarrhea. At the time of my evaluation she was breathing on 6 L nasal cannula; this is somewhat misleading as patient states that she did not feel short of breath but was placed on 6 L by nursing staff overnight. 02/14: Afebrile, currently breathing on 8 L nasal cannula. There has been some misleading documentation, chart oxygen this patient is requiring. Discussed with RN, will resume remdesivir to complete total of 5 days. Continue to monitor LFTs. Will add steroids, Rocephin, and azithromycin. 02/15: Afebrile. Became much more hypoxic overnight, requiring BiPAP. At the time of my evaluation she is still breathing on BiPAP. Consultation was placed to pulmonology. Had discussion with Dr. Myrick about initiating Tocilizumab 02/16: No acute events overnight. Patient becoming more hypoxic saturating 94% and requiring BiPAP. Patient will be transferred to the ICU at this time. For worsening clinical status. Discussed with pulmonary. Patient's chart, labs, images were reviewed and discussed with RN 02/17: Transferred to ICU yesterday afternoon. Seen and examined at bedside she remains on 100% FiO2 on BiPAP. Respirations do appear somewhat labored. Suspect intubation may be impending. We will closely monitor. Increase lisinopril to 20 today. 02/18: Patient required intubation yesterday afternoon. Saw and examined this morning. She is intubated and sedated. Increase insulin today. Covid protocol ordered. Wean as tolerated. Plan of care discussed with bedside nurse. 02/19: Bedside. She remains intubated and sedated. Continue Covid protocol. Wean oxygen sedation as tolerated. Pulmonary following. Plan of care discussed with bedside RN. 02/20: Patient seen and examined at bedside. She remains intubated and sedated. No major clinical changes. Continue current treatment. Pulmonary following. Plan of care discussed with bedside RN. 02/21: Patient seen and examined at bedside. Remains intubated and sedated date and admission clinical changes. Increase free water flushes today due to hypernatremia. Plan of care discussed with bedside nurse. 02/22: Patient seen and examined at bedside. O2 requirement actually improving, although remains intubated. Possible SBT in the coming days. Hypernatremia improving. Plan of care discussed bedside RN. 02/23: Patient remains in ICU on ventilator with FiO2 100%, PEEP 7. Repeat chest x-ray yesterday showed diffuse bilateral pulmonary opacities with no interval improvement. Will discontinue Rocephin and initiate Zosyn. We will continue IV steroids for a full 10-day course 02/24: Afebrile. On vent with FiO2 40%, PEEP 6. Her Coreg has been held due to persistent bradycardia. No documented history of systolic heart failure or pre vious echocardiogram. Will need to obtain echocardiogram prior to discharge. Continue IV steroids and antibiotics. 02/25: Afebrile. Remains ventilated with FiO2 45%, PEEP 6. Chest x-ray today showed slight improvement of the pulmonary infiltrates, no pneumothorax. Completed 10-day course of IV Decadron. Will initiate slow Solu-Medrol taper. Continue IV Zosyn. Continue supportive care. 02/26: Afebrile. On vent with FiO2 45%, PEEP 6. Completed 10 days of IV Decadron. Will continue IV Zosyn. Continue supportive care. Critical care time 30 minutes spent reviewing charts, reviewing imaging, reviewing labs, discussion with RN. 02/27: Afebrile. On vent with FiO2 45%, PEEP 6. Completed 10 days of steroids and completed remdesivir. Continue with IV Zosyn. CPAP trial yesterday. Continue NG tube and supportive care. 02/28:. Patient remains on vent with FiO2 40%, PEEP 5. Afebrile. Completed steroids and remdesivir. Some noted hypoglycemia overnight, will de-escalate basal insulin. Continue IV Zosyn. Ventilator management per pulmonology. Continue NG tube and supportive care. 03/01: On vent with FiO2 40%, PEEP 5. Afebrile. Completed steroids and remdesivir. Blood glucose well controlled. Continue empiric antibiotics with Zosyn. Ventilator management per pulmonology. Continue NG tube and supportive care. 03/02: No acute events overnight. Patient hypotensive the morning due to o versedation. Will wean off sedation and keep antihypertensive medications on board. Currently saturating 100% on vent settings of 18/450/40/5. Will attempt spontaneous breathing trial today to see how patient does. 03/03: No acute events overnight. Patient saturating 98% on vent settings of 18/450/40/5. Will defer spontaneous breathing trials to pulmonary at this time. Patient's chart, labs, images were reviewed and discussed with RN 03/04: No acute events overnight. Patient saturating 9 9% on vent settings of 18/450/30/5. Patient currently is unable to tolerate weaning. Per pulmonary. Patient's chart, labs, images were reviewed and discussed with RN 03/05: No acute events overnight. Patient is saturating 97% on vent settings of 18/450/55/5. Her FiO2 needs to be increased due to abnormal ABG with 7.3 . Patient's chart, labs, images were reviewed and discussed with RN 03/06: No acute events overnight. Patient saturating 94% on vent settings of 18/450/55/5. Chest x-ray showing increase in pulmonary infiltrates. Wound care is consulted for decubitus ulcer patient's chart, labs, images were reviewed and discussed with RN 8: No acute events overnight. Patient saturating 94% on vent settings of 20/450/70/8. Patient now heading into renal failure with her creatinine bumped up from 1.5-4.2. Decreased urine output. Plan for hemodialysis today and temporary catheter placement and nephrology is consulted. 03/08: No acute events overnight. Patient did have a nausea vomiting episode and tube feeds were held. KUB repeat shows NG tube still in the stomach. Will resume tube feeds at trickle and advance to goal today. Will start hemodialysis soon. 03/09: Seen on vent 20/450/60%/8. ABG 7.2 WBC 11.4, Hb 7.4, platelets 188, NA 131, K4.9, BUN 48, CR 51, glucose 199, phosphorus 7.9, mag 2.2, AST 265 ALT 219, albumin 1.1. Chest radiograph appears unchanged from prior. Dialysis x1 today 03/10: Afebrile. Seen on vent, 20/450/60/7 with ABG 7.3 . Tolerated dialysis well on 03/09. LFTs similar. 03/11: Afebrile. Seen on vent, sedated. Still requiring Levophed for BP support. WBC 16.7, Hb 8.1, NA 130, ABG 7.3 on 55% FiO2 PEEP 6. On Zosyn and Zyvox Diflucan. Dialysis today 03/12: Afebrile. Still requiring Levophed for BP support sedated with Versed febrile Precedex. WBC 16.1, Hb 8.5, platelets 185, NA 133. Trach plan tentatively 03/17. O2 saturations 93% on 50% FiO2 PEEP 6. ABG 7. On Zosyn and Zyvox Diflucan. Afebrile. Still on Levophed for BP support lightly sedated. 7. on 45% FiO2. Plan for dialysis today. On Zosyn and Zyvox Diflucan. More swollen today. CC time 31 minutes Vitals/I&O Vitals/I&O: Vital Signs Date Time Temp Pulse Resp B/P (MAP) Pulse Ox O2 Delivery O2 Flow Rate FiO2 03/13/21 10:07 94 Ventilator 03/13/21 10:00 76 24 102/60 (74) 03/13/21 08:00 98.4 98.4 I & O 03/12/21 03/12/21 03/13/21 15:00 23:00 07:00 Intake Total 705 ml 1869.78 ml 1702.39 ml Output Total 0 ml 0 ml 210 ml Balance 705 ml 1869.78 ml 1492.39 ml Physical Exam Physical Exam: GENERAL: Intubated and sedated. HEENT: Normocephalic, atraumatic. Anicteric. Neck right IJ HDC clean LUNGS: Rhonchi. HEART: S1, S2. No murmurs. ABDOMEN: Obese, soft. Bowel sounds present. Nontender, nondistended. GENITOURINARY: Kern and fecal tube in place. EXTREMITIES: Edema present no cyanosis. CENTRAL NERVOUS SYSTEM: Intubated. PSYCHIATRIC: Unable to assess. Derm has pressure wounds wound pictures noted in chart. Generalized rash, PICC line , right IJ HDC clean General: No acute distress Heart: Regular rate Lungs: Clear Abdomen: Normal bowel sounds, Soft, No tenderness Extremities: No clubbing, No cyanosis, Other Skin: No rashes, No significant lesion Labs Labs: Laboratory Tests Test 03/12/21 11:32 03/12/21 17:40 03/12/21 23:41 03/13/21 05:20 Glucose (Fingerstick) 194 mg/dL (70-99) 185 mg/dL (70-99) 175 mg/dL (70-99) Prothrombin Time 13.8 SEC (11.7-14.0) Prothromb Time International Ratio 1.1 (0.8-1.1) Iron Level 43 ug/dL (50-170) Total Iron Binding Capacity 156 ug/dL (250-450) Iron Saturation 28 % (15-34) Total Bilirubin 0.5 mg/dL (0.2-1.0) Direct Bilirubin 0.3 mg/dL (0.0-0.2) Aspartate Amino Transf (AST/SGOT) 90 U/L (15-37) Alanine Aminotransferase (ALT/SGPT) 112 U/L (14-59) Alkaline Phosphatase 299 U/L (46-116) Total Protein 6.5 g/dL (6.4-8.2) Albumin 1.2 g/dL (3.4-5.0) Test 03/13/21 06:04 03/13/21 08:35 Glucose (Fingerstick) 165 mg/dL (70-99) O2 Saturation 88 % (92-99) Arterial Blood pH 7.31 (7.35-7.45) Arterial Blood pCO2 at Patient Temp 37 mmHg (35-46) Arterial Blood pO2 at Patient Temp 61 mmHg (75-108) Arterial Blood HCO3 18 mmol/L (21-28) Arterial Blood Base Excess -8 mmol/L (-3-3) FiO2 45 Assessment and Plan Assessmemt and Plan Problems Medical Problems: (1) Ketoacidosis Status: Acute Comment Review of Relevant I have reviewed the following items mazin (where applicable) has been applied. Medications: Current Medications Medications (Trade) Dose Ordered Sig/Pepe Route PRN Reason Start Time Stop Time Status Last Admin Dose Admin Heparin Sodium (Porcine) (Heparin Sodium) 5,000 unit Q8HRS SQ 03/13/21 06:00 03/13/21 06:07 Justifications for Admission Other Justification LEO GROSS MD Mar 13, 2021 10:41
[2021-03-13] MEDS: DOCUSATE 100 MG/10 ML SOLUTION. PO SCH ×2 (11:50→20:38)
--- NOTE | 2021-03-13 12:33 | PDOC ---
G I PROGRESS NOTE Reason for Follow-up OP dysphagia Subjective Intubated on ventilator. No response. Objective Remains on pressor for BP. Physical Exam Lungs clear anteriorly. RRR Abdomen obese, firm. Review of Relevant I have reviewed the following items mazin (where applicable) has been applied. Labs Laboratory Tests Test 03/11/21 16:17 03/11/21 20:45 03/11/21 23:44 03/12/21 05:40 Glucose (Fingerstick) 128 mg/dL (70-99) 149 mg/dL (70-99) 174 mg/dL (70-99) White Blood Count 16.1 x10^3/uL (4.0-11.0) Red Blood Count 2.88 x10^6/uL (3.50-5.40) Hemoglobin 8.5 g/dL (12.0-15.5) Hematocrit 25.2 % (36.0-47.0) Mean Corpuscular Volume 88 fL (79-100) Mean Corpuscular Hemoglobin 29 pg (25-35) Mean Corpuscular Hemoglobin Concent 34 g/dL (31-37) Red Cell Distribution Width 14.3 % (11.5-14.5) Platelet Count 185 x10^3/uL (140-400) Neutrophils (%) (Auto) 76 % (31-73) Lymphocytes (%) (Auto) 9 % (24-48) Monocytes (%) (Auto) 3 % (0-9) Eosinophils (%) (Auto) 11 % (0-3) Basophils (%) (Auto) 0 % (0-3) Neutrophils # (Auto) 12.2 x10^3/uL (1.8-7.7) Lymphocytes # (Auto) 1.5 x10^3/uL (1.0-4.8) Monocytes # (Auto) 0.5 x10^3/uL (0.0-1.1) Eosinophils # (Auto) 1.8 x10^3/uL (0.0-0.7) Basophils # (Auto) 0.1 x10^3/uL (0.0-0.2) Sodium Level 133 mmol/L (136-145) Potassium Level 3.8 mmol/L (3.5-5.1) Chloride Level 96 mmol/L (98-107) Carbon Dioxide Level 24 mmol/L (21-32) Anion Gap 13 (6-14) Blood Urea Nitrogen 37 mg/dL (7-20) Creatinine 4.2 mg/dL (0.6-1.0) Estimated GFR (Cockcroft-Gault) 11.4 Glucose Level 190 mg/dL (70-99) Calcium Level 7.8 mg/dL (8.5-10.1) Magnesium Level 1.8 mg/dL (1.8-2.4) Test 03/12/21 05:41 03/12/21 07:52 03/12/21 11:32 03/12/21 17:40 Glucose (Fingerstick) 174 mg/dL (70-99) 194 mg/dL (70-99) 185 mg/dL (70-99) O2 Saturation 95 % (92-99) Arterial Blood pH 7.38 (7.35-7.45) Arterial Blood pCO2 at Patient Temp 35 mmHg (35-46) Arterial Blood pO2 at Patient Temp 79 mmHg (75-108) Arterial Blood HCO3 20 mmol/L (21-28) Arterial Blood Base Excess -5 mmol/L (-3-3) FiO2 50% vent Test 03/12/21 23:41 03/13/21 05:20 03/13/21 06:04 03/13/21 08:35 Glucose (Fingerstick) 175 mg/dL (70-99) 165 mg/dL (70-99) Prothrombin Time 13.8 SEC (11.7-14.0) Prothromb Time International Ratio 1.1 (0.8-1.1) Iron Level 43 ug/dL (50-170) Total Iron Binding Capacity 156 ug/dL (250-450) Iron Saturation 28 % (15-34) Total Bilirubin 0.5 mg/dL (0.2-1.0) Direct Bilirubin 0.3 mg/dL (0.0-0.2) Aspartate Amino Transf (AST/SGOT) 90 U/L (15-37) Alanine Aminotransferase (ALT/SGPT) 112 U/L (14-59) Alkaline Phosphatase 299 U/L (46-116) Total Protein 6.5 g/dL (6.4-8.2) Albumin 1.2 g/dL (3.4-5.0) Vitamin B12 Level > 2000 pg/mL (247-911) O2 Saturation 88 % (92-99) Arterial Blood pH 7.31 (7.35-7.45) Arterial Blood pCO2 at Patient Temp 37 mmHg (35-46) Arterial Blood pO2 at Patient Temp 61 mmHg (75-108) Arterial Blood HCO3 18 mmol/L (21-28) Arterial Blood Base Excess -8 mmol/L (-3-3) FiO2 45 Test 03/13/21 11:46 Glucose (Fingerstick) 159 mg/dL (70-99) Laboratory Tests Test 03/12/21 17:40 03/12/21 23:41 03/13/21 05:20 03/13/21 06:04 Glucose (Fingerstick) 185 mg/dL (70-99) 175 mg/dL (70-99) 165 mg/dL (70-99) Prothrombin Time 13.8 SEC (11.7-14.0) Prothromb Time International Ratio 1.1 (0.8-1.1) Iron Level 43 ug/dL (50-170) Total Iron Binding Capacity 156 ug/dL (250-450) Iron Saturation 28 % (15-34) Total Bilirubin 0.5 mg/dL (0.2-1.0) Direct Bilirubin 0.3 mg/dL (0.0-0.2) Aspartate Amino Transf (AST/SGOT) 90 U/L (15-37) Alanine Aminotransferase (ALT/SGPT) 112 U/L (14-59) Alkaline Phosphatase 299 U/L (46-116) Total Protein 6.5 g/dL (6.4-8.2) Albumin 1.2 g/dL (3.4-5.0) Vitamin B12 Level > 2000 pg/mL (247-911) Test 03/13/21 08:35 03/13/21 11:46 O2 Saturation 88 % (92-99) Arterial Blood pH 7.31 (7.35-7.45) Arterial Blood pCO2 at Patient Temp 37 mmHg (35-46) Arterial Blood pO2 at Patient Temp 61 mmHg (75-108) Arterial Blood HCO3 18 mmol/L (21-28) Arterial Blood Base Excess -8 mmol/L (-3-3) FiO2 45 Glucose (Fingerstick) 159 mg/dL (70-99) Microbiology 03/04/21 Gram Stain Evaluation - Final, Complete 03/04/21 Respiratory Culture - Final, Complete 03/04/21 Urine Culture - Final, Complete 03/04/21 Blood Culture - Final, Complete NO GROWTH AFTER 5 DAYS Vitals/I & O Vital Sign - Last 24 Hours 03/12/21 03/12/21 03/12/21 03/12/21 13:00 14:00 14:07 14:11 Pulse 60 59 Resp 24 24 24 B/P (MAP) 133/75 (94) 132/72 (92) Pulse Ox 96 95 96 97 O2 Delivery Ventilator Ventilator Ventilator Ventilator 03/12/21 03/12/21 03/12/21 03/12/21 14:37 15:00 16:00 16:00 Temp 98.7 98.7 Pulse 58 56 Resp 24 24 24 B/P (MAP) 132/79 (96) 123/74 (90) Pulse Ox 95 95 96 O2 Delivery Ventilator Ventilator Ventilator Mechanical Ventilator 03/12/21 03/12/21 03/12/21 03/12/21 16:05 17:00 18:00 19:00 Pulse 59 58 58 Resp 24 24 24 B/P (MAP) 123/75 (91) 83/59 (67) 101/67 (78) Pulse Ox 96 95 96 96 O2 Delivery Ventilator Ventilator Ventilator Ventilator 03/12/21 03/12/21 03/12/21 03/12/21 20:00 20:00 20:11 21:00 Temp 97.7 97.7 Pulse 60 58 Resp 24 24 B/P (MAP) 93/62 (72) 118/73 (88) Pulse Ox 96 96 97 O2 Delivery Mechanical Ventilator Ventilator Ventilator Ventilator 03/12/21 03/12/21 03/12/21 03/13/21 22:00 23:00 23:45 00:00 Temp 97.8 97.8 Pulse 56 57 57 Resp 24 24 24 B/P (MAP) 126/76 (93) 104/67 (79) 108/66 (80) Pulse Ox 97 96 96 96 O2 Delivery Ventilator Ventilator Ventilator Ventilator 03/13/21 03/13/21 03/13/21 03/13/21 00:00 01:00 01:15 02:00 Pulse 56 56 Resp 24 24 B/P (MAP) 124/75 (91) 116/70 (85) Pulse Ox 96 96 96 O2 Delivery Mechanical Ventilator Ventilator Ventilator Ventilator 9/303/13/21 03/13/21 03/13/21 03:00 03:09 04:00 04:00 Temp 98.0 98.0 Pulse 62 66 Resp 24 24 B/P (MAP) 113/71 (85) 121/75 (90) Pulse Ox 97 97 97 O2 Delivery Ventilator Ventilator Mechanical Ventilator Ventilator 03/13/21 03/13/21 03/13/21 03/13/21 05:00 05:31 06:00 07:00 Pulse 70 68 70 Resp 24 24 24 B/P (MAP) 146/77 (100) 136/79 (98) 138/83 (101) Pulse Ox 96 96 95 96 O2 Delivery Ventilator Ventilator Ventilator Ventilator 03/13/21 03/13/21 03/13/21 03/13/21 08:00 08:00 08:28 09:00 Temp 98.4 98.4 Pulse 70 72 Resp 24 24 B/P (MAP) 133/84 (100) 107/76 (86) Pulse Ox 94 96 95 O2 Delivery Ventilator Mechanical Ventilator Ventilator Ventilator 03/13/21 03/13/21 03/13/21 03/13/21 10:00 10:07 11:00 12:00 Pulse 76 70 Resp 24 24 B/P (MAP) 102/60 (74) 132/78 (96) Pulse Ox 95 94 95 O2 Delivery Ventilator Ventilator Ventilator Mechanical Ventilator 03/13/21 03/13/21 12:00 12:27 Temp 100.0 100.0 Pulse 75 Resp 24 B/P (MAP) 133/81 (98) Pulse Ox 96 95 O2 Delivery Ventilator Ventilator Intake and Output 03/12/21 03/12/21 03/13/21 15:00 23:00 07:00 Intake Total 705 ml 1869.78 ml 1702.39 ml Output Total 0 ml 0 ml 210 ml Balance 705 ml 1869.78 ml 1492.39 ml Problem List Problems Medical Problems: (1) Ketoacidosis Status: Acute Assessment OP dysphagia; reluctant to place PEG if on pressors. Iron studies c/w ACD. Plan of Care Note Continue as now. Justicifation of Admission Dx: Justifications for Admission: Justification of Admission Dx: N/A GERALD WU MD Mar 13, 2021 12:33
--- NOTE | 2021-03-13 16:45 | PDOC ---
Infectious Disease Note Subjective Subjective Pt intubated sedated ROS ROS no n/v/d/ Vital Sign Vital Signs Vital Signs Date Time Temp Pulse Resp B/P (MAP) Pulse Ox O2 Delivery O2 Flow Rate FiO2 03/13/21 16:24 93 Ventilator 03/13/21 15:00 64 24 83/51 (62) 03/13/21 12:00 100.0 100.0 Physical Exam PHYSICAL EXAM GENERAL: Intubated and sedated. HEENT: Normocephalic, atraumatic. Anicteric. Neck right IJ HDC clean LUNGS: Rhonchi. HEART: S1, S2. No murmurs. ABDOMEN: Obese, soft. Bowel sounds present. Nontender, nondistended. GENITOURINARY: Abbasi and fecal tube in place. EXTREMITIES: Edema present no cyanosis. CENTRAL NERVOUS SYSTEM: Intubated. PSYCHIATRIC: Unable to assess. Derm has pressure wounds wound pictures noted in chart. Generalized rash, PICC line , right IJ HDC clean Labs Lab Laboratory Tests Test 03/12/21 17:40 03/12/21 23:41 03/13/21 05:20 03/13/21 06:04 Glucose (Fingerstick) 185 mg/dL (70-99) 175 mg/dL (70-99) 165 mg/dL (70-99) Prothrombin Time 13.8 SEC (11.7-14.0) Prothromb Time International Ratio 1.1 (0.8-1.1) Iron Level 43 ug/dL (50-170) Total Iron Binding Capacity 156 ug/dL (250-450) Iron Saturation 28 % (15-34) Total Bilirubin 0.5 mg/dL (0.2-1.0) Direct Bilirubin 0.3 mg/dL (0.0-0.2) Aspartate Amino Transf (AST/SGOT) 90 U/L (15-37) Alanine Aminotransferase (ALT/SGPT) 112 U/L (14-59) Alkaline Phosphatase 299 U/L (46-116) Total Protein 6.5 g/dL (6.4-8.2) Albumin 1.2 g/dL (3.4-5.0) Vitamin B12 Level > 2000 pg/mL (247-911) Test 03/13/21 08:35 03/13/21 11:46 O2 Saturation 88 % (92-99) Arterial Blood pH 7.31 (7.35-7.45) Arterial Blood pCO2 at Patient Temp 37 mmHg (35-46) Arterial Blood pO2 at Patient Temp 61 mmHg (75-108) Arterial Blood HCO3 18 mmol/L (21-28) Arterial Blood Base Excess -8 mmol/L (-3-3) FiO2 45 Glucose (Fingerstick) 159 mg/dL (70-99) Micro Microbiology 03/04/21 Gram Stain Evaluation - Final, Complete 03/04/21 Respiratory Culture - Final, Complete 03/04/21 Urine Culture - Final, Complete 03/04/21 Blood Culture - Preliminary, Resulted NO GROWTH AFTER 4 DAYS Objective Assessment 1. Febrile illness. 2. COVID-19 infection present on date of admission, 02/06/2021. Status post remdesivir, dexamethasone. 3. Acute hypoxic respiratory failure, status post intubation. Trach cultures positive for [place] albicans 4. Diabetes. 5. Diarrhea. 6. Hypertension. 7. Hyperlipidemia. 8. Anemia. 9. BOB on HD 10.UC [place], ua neg Plan Plan of Care Continue Zosyn, Continue fluconazole renal dosing 03/07 Follow-up lab ,cultures, C. diff PCR negative Change abbasi if not done already. Wound care per wound treatment Offload Continue supportive care. Critically ill. Prognosis guarded. D/W BLANCA CURIEL MD Mar 13, 2021 16:45
[2021-03-13] MEDS ORDERED: DIALYSIS PATIENT. MC PRN (17:00)
[2021-03-13] MEDS: ATORVASTATIN CALCIUM 40 MG TABLET. PO SCH (20:38)
[2021-03-14] VITALS (24 sets, daily range): BP systolic 90–172; BP diastolic 56–83
[2021-03-14] MEDS: DEXMEDETOMIDINE 400 MCG in IV NORMAL SALINE 100ML 96 ML IV PRN ×6 (01:56→23:21)
[2021-03-14] MEDS: PROPOFOL 100 ML IV PRN ×5 (03:15→22:57)
[2021-03-14] MEDS: PIPERACILLIN/TAZOBACTAM 2.25 GM in IV NORMAL SALINE 50ML 50 ML IV SCH ×3 (06:05→22:09)
[2021-03-14] MEDS: HEPARIN for SUB-Q USE 5,000 UNIT/ML VIAL. SQ SCH ×3 (06:06→22:13)
[2021-03-14] MEDS: INSULIN LISPRO 300 UNITS/3 ML VIAL. SQ SCH ×3 (06:06→18:23)
[2021-03-14 06:43] LABS: HEMATOCRIT 24.8 % (36.0-47.0); HEMOGLOBIN 8.1 g/dL (12.0-15.5); RED BLOOD COUNT 2.82 x10^6/uL (3.50-5.40); RED CELL DISTRIBUTION WIDTH 14.3 % (11.5-14.5); WHITE BLOOD COUNT 14.9 x10^3/uL (4.0-11.0)
[2021-03-14 06:55] LABS: GFR 12.1; POTASSIUM 3.7 mmol/L (3.5-5.1)
[2021-03-14] MEDS: MIDAZOLAM 100mg/100ml NS BAG 100 ML IV PRN ×2 (07:34→19:01)
--- NOTE | 2021-03-14 07:36 | PDOC ---
PULMONARY PROGRESS NOTES DATE: 03/14/21 TIME: 07:36 Subjective No overnight events Discussed with RN Currently on 45% 6 of PEEP Norepinephrine On hemodialysis Vitals Vital Signs Date Time Temp Pulse Resp B/P (MAP) Pulse Ox O2 Delivery O2 Flow Rate FiO2 03/14/21 06:00 82 24 111/75 (87) 96 Ventilator 03/14/21 04:00 99.6 99.6 Lungs: Clear Cardiovascular: S1 Abdomen: Soft Skin: Warm Labs Laboratory Tests Test 03/12/21 07:52 03/12/21 11:32 03/12/21 17:40 03/12/21 23:41 O2 Saturation 95 % (92-99) Arterial Blood pH 7.38 (7.35-7.45) Arterial Blood pCO2 at Patient Temp 35 mmHg (35-46) Arterial Blood pO2 at Patient Temp 79 mmHg (75-108) Arterial Blood HCO3 20 mmol/L (21-28) Arterial Blood Base Excess -5 mmol/L (-3-3) FiO2 50% vent Glucose (Fingerstick) 194 mg/dL (70-99) 185 mg/dL (70-99) 175 mg/dL (70-99) Test 03/13/21 05:20 03/13/21 06:04 03/13/21 08:35 03/13/21 11:46 Prothrombin Time 13.8 SEC (11.7-14.0) Prothromb Time International Ratio 1.1 (0.8-1.1) Iron Level 43 ug/dL (50-170) Total Iron Binding Capacity 156 ug/dL (250-450) Iron Saturation 28 % (15-34) Total Bilirubin 0.5 mg/dL (0.2-1.0) Direct Bilirubin 0.3 mg/dL (0.0-0.2) Aspartate Amino Transf (AST/SGOT) 90 U/L (15-37) Alanine Aminotransferase (ALT/SGPT) 112 U/L (14-59) Alkaline Phosphatase 299 U/L (46-116) Total Protein 6.5 g/dL (6.4-8.2) Albumin 1.2 g/dL (3.4-5.0) Vitamin B12 Level > 2000 pg/mL (247-911) Glucose (Fingerstick) 165 mg/dL (70-99) 159 mg/dL (70-99) O2 Saturation 88 % (92-99) Arterial Blood pH 7.31 (7.35-7.45) Arterial Blood pCO2 at Patient Temp 37 mmHg (35-46) Arterial Blood pO2 at Patient Temp 61 mmHg (75-108) Arterial Blood HCO3 18 mmol/L (21-28) Arterial Blood Base Excess -8 mmol/L (-3-3) FiO2 45 Test 03/13/21 17:27 03/13/21 23:46 03/14/21 05:59 03/14/21 06:00 Glucose (Fingerstick) 156 mg/dL (70-99) 148 mg/dL (70-99) 180 mg/dL (70-99) White Blood Count 14.9 x10^3/uL (4.0-11.0) Red Blood Count 2.82 x10^6/uL (3.50-5.40) Hemoglobin 8.1 g/dL (12.0-15.5) Hematocrit 24.8 % (36.0-47.0) Mean Corpuscular Volume 88 fL (79-100) Mean Corpuscular Hemoglobin 29 pg (25-35) Mean Corpuscular Hemoglobin Concent 33 g/dL (31-37) Red Cell Distribution Width 14.3 % (11.5-14.5) Platelet Count 178 x10^3/uL (140-400) Sodium Level 132 mmol/L (136-145) Potassium Level 3.7 mmol/L (3.5-5.1) Chloride Level 96 mmol/L (98-107) Carbon Dioxide Level 25 mmol/L (21-32) Anion Gap 11 (6-14) Blood Urea Nitrogen 31 mg/dL (7-20) Creatinine 4.0 mg/dL (0.6-1.0) Estimated GFR (Cockcroft-Gault) 12.1 Glucose Level 186 mg/dL (70-99) Calcium Level 8.0 mg/dL (8.5-10.1) Laboratory Tests Test 03/13/21 08:35 03/13/21 11:46 03/13/21 17:27 03/13/21 23:46 O2 Saturation 88 % (92-99) Arterial Blood pH 7.31 (7.35-7.45) Arterial Blood pCO2 at Patient Temp 37 mmHg (35-46) Arterial Blood pO2 at Patient Temp 61 mmHg (75-108) Arterial Blood HCO3 18 mmol/L (21-28) Arterial Blood Base Excess -8 mmol/L (-3-3) FiO2 45 Glucose (Fingerstick) 159 mg/dL (70-99) 156 mg/dL (70-99) 148 mg/dL (70-99) Test 03/14/21 05:59 03/14/21 06:00 Glucose (Fingerstick) 180 mg/dL (70-99) White Blood Count 14.9 x10^3/uL (4.0-11.0) Red Blood Count 2.82 x10^6/uL (3.50-5.40) Hemoglobin 8.1 g/dL (12.0-15.5) Hematocrit 24.8 % (36.0-47.0) Mean Corpuscular Volume 88 fL (79-100) Mean Corpuscular Hemoglobin 29 pg (25-35) Mean Corpuscular Hemoglobin Concent 33 g/dL (31-37) Red Cell Distribution Width 14.3 % (11.5-14.5) Platelet Count 178 x10^3/uL (140-400) Sodium Level 132 mmol/L (136-145) Potassium Level 3.7 mmol/L (3.5-5.1) Chloride Level 96 mmol/L (98-107) Carbon Dioxide Level 25 mmol/L (21-32) Anion Gap 11 (6-14) Blood Urea Nitrogen 31 mg/dL (7-20) Creatinine 4.0 mg/dL (0.6-1.0) Estimated GFR (Cockcroft-Gault) 12.1 Glucose Level 186 mg/dL (70-99) Calcium Level 8.0 mg/dL (8.5-10.1) Medications Active Scripts Medications Dose Route/Sig Max Daily Dose Days Date Category Novolog Flexpen (Insulin Aspart) 100 Unit/1 Ml Insuln.pen 3-7 SQ TIDACHC 02/07/21 Reported Lisinopril 5 Mg Tablet 1 Tab PO DAILY 02/07/21 Reported Lantus Solostar (Insulin Glargine,Hum.rec.anlog) 100 Unit/1 Ml Insuln.pen 5 Unit SQ QHS 04/09/15 Reported Atorvastatin Calcium 40 Mg Tablet 40 Mg PO HS 04/09/15 Reported Impression . IMPRESSION: 1. Acute hypoxic respiratory failure secondary to COVID-19 viral pneumonia/acute lung injury and early acute respiratory distress syndrome. S/P intubation 02/17/21 2. Nonsmoker. 3. Abnormal chest x-ray consistent with COVID-19 viral pneumonia.--- 4. Diabetic ketoacidosis 5. Underlying obesity contributing to hypoxia as well. 6. BOB worsening hemodialysis started 03/07 7. Fever, per ID 8. Abnormal chest x-ray with diffuse interstitial infiltrates compatible with viral pneumonia 9. [place] in the sputum is a contamination 10. Septic shock Plan . Updated 03/14 Discussed with RN, continue current support Negative fluid balance with dialysis Try treatment titrating norepinephrine off Trach next week Antibiotics per ID C. difficile PCR negative Total cumulative critical care time of 30 minutes, with no overlap updated 03/13 Discussed with RN Continue current support Titrate norepinephrine down Trach schedule for next week Antibiotics per ID Status post steroids and remdesivir Nutritional support DVT GI prophylaxis Updated 03/12/2021 Continue current ventilatory support, setting reviewed, wean PEEP to 5 and FiO2 to 45% ABGs reviewed. Oxygenation has improved. Wean FiO2 as tolerated. levophed to keep map 65. hd started 03/07 per nephro CXR with unchanged diffuse interstitial infiltrates. Follow-up surgery recommendations for tracheostomy. I have discussed with Dr. Arzate. Plan to do tracheostomy next Tuesday. Follow chest x-ray/ABG Follow infectious disease recommendations in regards to antibiotics S/P remdesivir for full course, has also completed full course of steroids Continue tube feeding for nutritional support elevate hob DVT/GI prophylaxis: Lovenox Discussed with RN and RT Discussed with Dr. Arzate. Tracheostomy next Tuesday. critically ill but improving MONTEZ OROPEZA MD Mar 14, 2021 07:36
[2021-03-14] MEDS: DOCUSATE 100 MG/10 ML SOLUTION. PO SCH ×2 (09:00→21:00)
[2021-03-14] MEDS: NYSTATIN TOPICAL POWDER 15GM BOTTLE. TP SCH ×2 (09:00→21:20)
[2021-03-14 09:10] LABS: BASE EXCESS ABG -3 mmol/L (-3-3); HCO3 ABG 22 mmol/L (21-28); PCO2 ABG 38 mmHg (35-46); PO2 ABG 70 mmHg (75-108); SAT O2 ABG 93 % (92-99)
[2021-03-14] MEDS: FAMOTIDINE 20 MG/2 ML VIAL IVP SCH (09:52)
[2021-03-14] MEDS: MULTIVITAMINS,THERAPEUTIC 5 ML ORAL LIQUID. PEG SCH (09:52)
[2021-03-14] MEDS: INSULIN GLARGINE SYRINGE. SQ SCH ×2 (09:52→21:19)
[2021-03-14] MEDS: FLUCONAZOLE 200MG/100ML PREMIX 100 ML IV SCH (10:02)
--- NOTE | 2021-03-14 10:07 | PDOC ---
[facility] PROGRESS NOTE Date of Service DOS: DATE: 03/14/21 TIME: 10:01 Chief Complaint Chief Complaint Hypotension COVID-19 positive infection Tractable nausea vomiting DKA Combined metabolic and respiratory acidosis Acute electrolyte derangementhyponatremia, hypochloremia due to volume depletion Hyperglycemia uncontrolled BOB due to vasomotor nephropathy Erythrocytosis Reglan for diabetic gastroparesis Candiduria Sacral decubitus ulcer Started on fluconazole today and Zosyn Continue Covid measures Patient intubated Pulmonary following SCD for DVT prophylaxis Protonix GI prophylaxis ADA diet Full code Discussed with RN and SW Disposition inpatient management as above Surrogate decision maker is Brian Whitmore History of Present Illness History of Present Illness Ms Borges is a 46 year old female who presented with nausea/vomiting since 7 AM 02/06/2021 in the morning. Patient stated that her recently tested positive for Covid. She states that he "coughed in my face because he thought it was funny." She reports subjective fevers and chills and nausea/vomiting. Denies sore throat, cough, shortness of breath. No chest pain. Does have some upper abdominal discomfort after vomiting, that she attributes to muscular strain. She was not vaccinated for Covid. 02/08: No acute events overnight. Patient seen and examined bedside and resting comfortably. Continues to complain of nausea not able to tolerate any diet at this time. Saturating 98% on room air. Patient's chart, labs, images were reviewed and discussed with RN 02/09: Afebrile, currently breathing on room air. Still with complaints of nausea and vomiting x3 today. States that she has history of similar symptoms that have been mildly improved with IV Dilaudid. 02/10: Patient febrile today with T-max 102.2 F. She still admits to nausea, denies any further vomiting. We will continue to provide supportive care and monitor for any recurrent fevers overnight. Patient continues to improve may discharge tomorrow to continue self-isolation. 02/11: Febrile overnight, T-max 102.3 F. She did become hypoxic overnight, currently breathing on 4 L nasal cannula. Also admits to associated vomiting or diarrhea overnight. Discussed with RN, will initiate remdesivir and closely monitor LFTs. IV Decadron, and prophylactic antibiotics. 02/12: Low-grade fever overnight, T-max 99.7. Currently breathing on room air. Will discontinue remdesivir, steroids, and antibiotics; will observe overnight. Still with complaints of vomiting x1 and diarrhea. We will continue to provide supportive care and hope to discharge in the next day or so. 02/13: Afebrile. Still complains of intermittent diarrhea. At the time of my evaluation she was breathing on 6 L nasal cannula; this is somewhat misleading as patient states that she did not feel short of breath but was placed on 6 L by nursing staff overnight. 02/14: Afebrile, currently breathing on 8 L nasal cannula. There has been some misleading documentation, chart oxygen this patient is requiring. Discussed with RN, will resume remdesivir to complete total of 5 days. Continue to monitor LFTs. Will add steroids, Rocephin, and azithromycin. 02/15: Afebrile. Became much more hypoxic overnight, requiring BiPAP. At the time of my evaluation she is still breathing on BiPAP. Consultation was placed to pulmonology. Had discussion with Dr. Myrick about initiating Tocilizumab 02/16: No acute events overnight. Patient becoming more hypoxic saturating 94% and requiring BiPAP. Patient will be transferred to the ICU at this time. For worsening clinical status. Discussed with pulmonary. Patient's chart, labs, images were reviewed and discussed with RN 02/17: Transferred to ICU yesterday afternoon. Seen and examined at bedside she remains on 100% FiO2 on BiPAP. Respirations do appear somewhat labored. Suspect intubation may be impending. We will closely monitor. Increase lisinopril to 20 today. 02/18: Patient required intubation yesterday afternoon. Saw and examined this morning. She is intubated and sedated. Increase insulin today. Covid protocol ordered. Wean as tolerated. Plan of care discussed with bedside nurse. 02/19: Bedside. She remains intubated and sedated. Continue Covid protocol. Wean oxygen sedation as tolerated. Pulmonary following. Plan of care discussed with bedside RN. 02/20: Patient seen and examined at bedside. She remains intubated and sedated. No major clinical changes. Continue current treatment. Pulmonary following. Plan of care discussed with bedside RN. 02/21: Patient seen and examined at bedside. Remains intubated and sedated date and admission clinical changes. Increase free water flushes today due to hypernatremia. Plan of care discussed with bedside nurse. 02/22: Patient seen and examined at bedside. O2 requirement actually improving, although remains intubated. Possible SBT in the coming days. Hypernatremia improving. Plan of care discussed bedside RN. 02/23: Patient remains in ICU on ventilator with FiO2 100%, PEEP 7. Repeat chest x-ray yesterday showed diffuse bilateral pulmonary opacities with no interval improvement. Will discontinue Rocephin and initiate Zosyn. We will continue IV steroids for a full 10-day course 02/24: Afebrile. On vent with FiO2 40%, PEEP 6. Her Coreg has been held due to persistent bradycardia. No documented history of systolic heart failure or pre vious echocardiogram. Will need to obtain echocardiogram prior to discharge. Continue IV steroids and antibiotics. 02/25: Afebrile. Remains ventilated with FiO2 45%, PEEP 6. Chest x-ray today showed slight improvement of the pulmonary infiltrates, no pneumothorax. Completed 10-day course of IV Decadron. Will initiate slow Solu-Medrol taper. Continue IV Zosyn. Continue supportive care. 02/26: Afebrile. On vent with FiO2 45%, PEEP 6. Completed 10 days of IV Decadron. Will continue IV Zosyn. Continue supportive care. Critical care time 30 minutes spent reviewing charts, reviewing imaging, reviewing labs, discussion with RN. 02/27: Afebrile. On vent with FiO2 45%, PEEP 6. Completed 10 days of steroids and completed remdesivir. Continue with IV Zosyn. CPAP trial yesterday. Continue NG tube and supportive care. 02/28:. Patient remains on vent with FiO2 40%, PEEP 5. Afebrile. Completed steroids and remdesivir. Some noted hypoglycemia overnight, will de-escalate basal insulin. Continue IV Zosyn. Ventilator management per pulmonology. Continue NG tube and supportive care. 03/01: On vent with FiO2 40%, PEEP 5. Afebrile. Completed steroids and remdesivir. Blood glucose well controlled. Continue empiric antibiotics with Zosyn. Ventilator management per pulmonology. Continue NG tube and supportive care. 03/02: No acute events overnight. Patient hypotensive the morning due to o versedation. Will wean off sedation and keep antihypertensive medications on board. Currently saturating 100% on vent settings of 18/450/40/5. Will attempt spontaneous breathing trial today to see how patient does. 03/03: No acute events overnight. Patient saturating 98% on vent settings of 18/450/40/5. Will defer spontaneous breathing trials to pulmonary at this time. Patient's chart, labs, images were reviewed and discussed with RN 03/04: No acute events overnight. Patient saturating 9 9% on vent settings of 18/450/30/5. Patient currently is unable to tolerate weaning. Per pulmonary. Patient's chart, labs, images were reviewed and discussed with RN 03/05: No acute events overnight. Patient is saturating 97% on vent settings of 18/450/55/5. Her FiO2 needs to be increased due to abnormal ABG with 7.3 . Patient's chart, labs, images were reviewed and discussed with RN 03/06: No acute events overnight. Patient saturating 94% on vent settings of 18/450/55/5. Chest x-ray showing increase in pulmonary infiltrates. Wound care is consulted for decubitus ulcer patient's chart, labs, images were reviewed and discussed with RN 8: No acute events overnight. Patient saturating 94% on vent settings of 20/450/70/8. Patient now heading into renal failure with her creatinine bumped up from 1.5-4.2. Decreased urine output. Plan for hemodialysis today and temporary catheter placement and nephrology is consulted. 03/08: No acute events overnight. Patient did have a nausea vomiting episode and tube feeds were held. KUB repeat shows NG tube still in the stomach. Will resume tube feeds at trickle and advance to goal today. Will start hemodialysis soon. 03/09: Seen on vent 20/450/60%/8. ABG 7.2 WBC 11.4, Hb 7.4, platelets 188, NA 131, K4.9, BUN 48, CR 51, glucose 199, phosphorus 7.9, mag 2.2, AST 265 ALT 219, albumin 1.1. Chest radiograph appears unchanged from prior. Dialysis x1 today 03/10: Afebrile. Seen on vent, 20/450/60/7 with ABG 7.3 . Tolerated dialysis well on 03/09. LFTs similar. 03/11: Afebrile. Seen on vent, sedated. Still requiring Levophed for BP support. WBC 16.7, Hb 8.1, NA 130, ABG 7.3 on 55% FiO2 PEEP 6. On Zosyn and Zyvox Diflucan. Dialysis today 03/12: Afebrile. Still requiring Levophed for BP support sedated with Versed febrile Precedex. WBC 16.1, Hb 8.5, platelets 185, NA 133. Trach plan tentatively 03/17. O2 saturations 93% on 50% FiO2 PEEP 6. ABG 7. On Zosyn and Zyvox Diflucan. 03/13: Afebrile. Still on Levophed for BP support lightly sedated. 7. on 45% FiO2. Plan for dialysis today. On Zosyn and Zyvox Diflucan. More swollen today. Afebrile. Weanin down off Levophed. WBC 14.9 NA 132. O2 saturations 92% on 45% FiO2 PEEP 5. CC time 31 minutes Vitals/I&O Vitals/I&O: Vital Signs Date Time Temp Pulse Resp B/P (MAP) Pulse Ox O2 Delivery O2 Flow Rate FiO2 03/14/21 06:00 82 24 111/75 (87) 96 Ventilator 03/14/21 04:00 99.6 99.6 I & O 03/13/21 03/13/21 03/14/21 15:00 23:00 07:00 Intake Total 911 ml 1782.04 ml 2148.5 ml Output Total 0 ml 0 ml 0 ml Balance 911 ml 1782.04 ml 2148.5 ml Physical Exam Physical Exam: GENERAL: Intubated and sedated. HEENT: Normocephalic, atraumatic. Anicteric. Neck right IJ HDC clean LUNGS: Rhonchi. HEART: S1, S2. No murmurs. ABDOMEN: Obese, soft. Bowel sounds present. Nontender, nondistended. GENITOURINARY: Kern and fecal tube in place. EXTREMITIES: Edema present no cyanosis. CENTRAL NERVOUS SYSTEM: Intubated. PSYCHIATRIC: Unable to assess. Derm has pressure wounds wound pictures noted in chart. Generalized rash, PICC line , right IJ HDC clean General: No acute distress Heart: Regular rate Lungs: Clear Abdomen: Normal bowel sounds, Soft, No tenderness Extremities: No clubbing, No cyanosis, Other Skin: No rashes, No significant lesion Labs Labs: Laboratory Tests Test 03/13/21 11:46 03/13/21 17:27 03/13/21 23:46 03/14/21 05:59 Glucose (Fingerstick) 159 mg/dL (70-99) 156 mg/dL (70-99) 148 mg/dL (70-99) 180 mg/dL (70-99) Test 03/14/21 06:00 White Blood Count 14.9 x10^3/uL (4.0-11.0) Red Blood Count 2.82 x10^6/uL (3.50-5.40) Hemoglobin 8.1 g/dL (12.0-15.5) Hematocrit 24.8 % (36.0-47.0) Mean Corpuscular Volume 88 fL (79-100) Mean Corpuscular Hemoglobin 29 pg (25-35) Mean Corpuscular Hemoglobin Concent 33 g/dL (31-37) Red Cell Distribution Width 14.3 % (11.5-14.5) Platelet Count 178 x10^3/uL (140-400) Sodium Level 132 mmol/L (136-145) Potassium Level 3.7 mmol/L (3.5-5.1) Chloride Level 96 mmol/L (98-107) Carbon Dioxide Level 25 mmol/L (21-32) Anion Gap 11 (6-14) Blood Urea Nitrogen 31 mg/dL (7-20) Creatinine 4.0 mg/dL (0.6-1.0) Estimated GFR (Cockcroft-Gault) 12.1 Glucose Level 186 mg/dL (70-99) Calcium Level 8.0 mg/dL (8.5-10.1) Assessment and Plan Assessmemt and Plan Problems Medical Problems: (1) Ketoacidosis Status: Acute Comment Review of Relevant I have reviewed the following items mazin (where applicable) has been applied. Justifications for Admission Other Justification LEO GROSS MD Mar 14, 2021 10:07
[2021-03-14 10:56] LABS: FIO2 ABG 45% VENT
--- NOTE | 2021-03-14 13:36 | PDOC ---
Infectious Disease Note Subjective Subjective Pt intubated sedated ROS ROS no n/v/d/fever Vital Sign Vital Signs Vital Signs Date Time Temp Pulse Resp B/P (MAP) Pulse Ox O2 Delivery O2 Flow Rate FiO2 03/14/21 12:37 98 50.0 03/14/21 12:14 Ventilator 03/14/21 06:00 82 24 111/75 (87) 03/14/21 04:00 99.6 99.6 Physical Exam PHYSICAL EXAM GENERAL: Intubated and sedated. HEENT: Normocephalic, atraumatic. Anicteric. Neck right IJ HDC clean LUNGS: Rhonchi. HEART: S1, S2. No murmurs. ABDOMEN: Obese, soft. Bowel sounds present. Nontender, nondistended. GENITOURINARY: Kern and fecal tube in place. EXTREMITIES: Edema present no cyanosis. CENTRAL NERVOUS SYSTEM: Intubated. PSYCHIATRIC: Unable to assess. Derm has pressure wounds wound pictures noted in chart. Generalized rash, PICC line , right IJ HDC clean Labs Lab Laboratory Tests Test 03/13/21 17:27 03/13/21 23:46 03/14/21 05:59 03/14/21 06:00 Glucose (Fingerstick) 156 mg/dL (70-99) 148 mg/dL (70-99) 180 mg/dL (70-99) White Blood Count 14.9 x10^3/uL (4.0-11.0) Red Blood Count 2.82 x10^6/uL (3.50-5.40) Hemoglobin 8.1 g/dL (12.0-15.5) Hematocrit 24.8 % (36.0-47.0) Mean Corpuscular Volume 88 fL (79-100) Mean Corpuscular Hemoglobin 29 pg (25-35) Mean Corpuscular Hemoglobin Concent 33 g/dL (31-37) Red Cell Distribution Width 14.3 % (11.5-14.5) Platelet Count 178 x10^3/uL (140-400) Sodium Level 132 mmol/L (136-145) Potassium Level 3.7 mmol/L (3.5-5.1) Chloride Level 96 mmol/L (98-107) Carbon Dioxide Level 25 mmol/L (21-32) Anion Gap 11 (6-14) Blood Urea Nitrogen 31 mg/dL (7-20) Creatinine 4.0 mg/dL (0.6-1.0) Estimated GFR (Cockcroft-Gault) 12.1 Glucose Level 186 mg/dL (70-99) Calcium Level 8.0 mg/dL (8.5-10.1) Test 03/14/21 09:30 03/14/21 12:18 O2 Saturation 93 % (92-99) Arterial Blood pH 7.39 (7.35-7.45) Arterial Blood pCO2 at Patient Temp 38 mmHg (35-46) Arterial Blood pO2 at Patient Temp 70 mmHg (75-108) Arterial Blood HCO3 22 mmol/L (21-28) Arterial Blood Base Excess -3 mmol/L (-3-3) FiO2 45% vent Glucose (Fingerstick) 155 mg/dL (70-99) Micro Microbiology 03/04/21 Gram Stain Evaluation - Final, Complete 03/04/21 Respiratory Culture - Final, Complete 03/04/21 Urine Culture - Final, Complete 03/04/21 Blood Culture - Preliminary, Resulted NO GROWTH AFTER 4 DAYS Objective Assessment 1. Febrile illness. 2. COVID-19 infection present on date of admission, 02/06/2021. Status post remdesivir, dexamethasone. 3. Acute hypoxic respiratory failure, status post intubation. Trach cultures positive for [place] albicans 4. Diabetes. 5. Diarrhea. 6. Hypertension. 7. Hyperlipidemia. 8. Anemia. 9. BOB on HD 10.UC [place] alb[place], ua neg Plan Plan of Care Continue Zosyn, Continue fluconazole renal dosing 03/07 Follow-up lab ,cultures, C. diff PCR negative Kern changed per team Wound care per wound treatment Offload Continue supportive care. Critically ill. Prognosis guarded. D/W BLANCA CURIEL MD Mar 14, 2021 13:36
[2021-03-14] MEDS ORDERED: PIPERACILLIN/TAZOBACTAM 3.375 GM in IV NORMAL SALINE 50ML 50 ML IV SCH (18:00)
[2021-03-14] MEDS: ATORVASTATIN CALCIUM 40 MG TABLET. PO SCH (21:19)
[2021-03-15] VITALS (24 sets, daily range): BP systolic 78–173; BP diastolic 52–102
[2021-03-15] MEDS: DEXMEDETOMIDINE 400 MCG in IV NORMAL SALINE 100ML 96 ML IV PRN ×6 (03:36→21:10)
[2021-03-15] MEDS: VECURONIUM BOLUS 10 MG VIAL. IV PRN ×3 (03:58→22:55)
[2021-03-15] MEDS: MIDAZOLAM 100mg/100ml NS BAG 100 ML IV PRN ×2 (04:42→15:58)
[2021-03-15] MEDS: PIPERACILLIN/TAZOBACTAM 2.25 GM in IV NORMAL SALINE 50ML 50 ML IV SCH ×3 (06:20→21:35)
[2021-03-15] MEDS: HEPARIN for SUB-Q USE 5,000 UNIT/ML VIAL. SQ SCH ×3 (06:24→21:35)
[2021-03-15] MEDS: INSULIN LISPRO 300 UNITS/3 ML VIAL. SQ SCH ×5 (06:29→23:45)
[2021-03-15] MEDS: DOCUSATE 100 MG/10 ML SOLUTION. PO SCH ×2 (09:00→21:00)
[2021-03-15] MEDS: FLUCONAZOLE 200MG/100ML PREMIX 100 ML IV SCH (09:06)
[2021-03-15] MEDS: FAMOTIDINE 20 MG/2 ML VIAL IVP SCH (09:06)
[2021-03-15] MEDS: MULTIVITAMINS,THERAPEUTIC 5 ML ORAL LIQUID. PEG SCH (09:06)
[2021-03-15] MEDS: INSULIN GLARGINE SYRINGE. SQ SCH ×2 (09:07→21:17)
[2021-03-15] MEDS: NYSTATIN TOPICAL POWDER 15GM BOTTLE. TP SCH ×2 (09:07→21:08)
[2021-03-15 09:26] LABS: BASE EXCESS ABG -5 mmol/L (-3-3); HCO3 ABG 21 mmol/L (21-28); PCO2 ABG 40 mmHg (35-46); PO2 ABG 69 mmHg (75-108); SAT O2 ABG 92 % (92-99)
[2021-03-15] MEDS: NOREPINEPHRINE VIAL 8 MG in IV DEXTROSE 5% 250 ML IV PRN (09:30)
--- NOTE | 2021-03-15 09:43 | PDOC ---
PULMONARY PROGRESS NOTES DATE: 03/15/21 TIME: 09:42 Subjective No overnight events Patient appears to be retaining fluids Currently on 45% 6 of PEEP Vitals Vital Signs Date Time Temp Pulse Resp B/P (MAP) Pulse Ox O2 Delivery O2 Flow Rate FiO2 03/15/21 06:00 66 24 114/71 (85) 97 Ventilator 03/15/21 04:00 99.5 99.5 03/14/21 12:37 50.0 Lungs: Clear Cardiovascular: S1 Abdomen: Soft Skin: Warm Labs Laboratory Tests Test 03/13/21 11:46 03/13/21 17:27 03/13/21 23:46 03/14/21 05:59 Glucose (Fingerstick) 159 mg/dL (70-99) 156 mg/dL (70-99) 148 mg/dL (70-99) 180 mg/dL (70-99) Test 03/14/21 06:00 03/14/21 09:30 03/14/21 12:18 03/14/21 18:20 White Blood Count 14.9 x10^3/uL (4.0-11.0) Red Blood Count 2.82 x10^6/uL (3.50-5.40) Hemoglobin 8.1 g/dL (12.0-15.5) Hematocrit 24.8 % (36.0-47.0) Mean Corpuscular Volume 88 fL (79-100) Mean Corpuscular Hemoglobin 29 pg (25-35) Mean Corpuscular Hemoglobin Concent 33 g/dL (31-37) Red Cell Distribution Width 14.3 % (11.5-14.5) Platelet Count 178 x10^3/uL (140-400) Sodium Level 132 mmol/L (136-145) Potassium Level 3.7 mmol/L (3.5-5.1) Chloride Level 96 mmol/L (98-107) Carbon Dioxide Level 25 mmol/L (21-32) Anion Gap 11 (6-14) Blood Urea Nitrogen 31 mg/dL (7-20) Creatinine 4.0 mg/dL (0.6-1.0) Estimated GFR (Cockcroft-Gault) 12.1 Glucose Level 186 mg/dL (70-99) Calcium Level 8.0 mg/dL (8.5-10.1) O2 Saturation 93 % (92-99) Arterial Blood pH 7.39 (7.35-7.45) Arterial Blood pCO2 at Patient Temp 38 mmHg (35-46) Arterial Blood pO2 at Patient Temp 70 mmHg (75-108) Arterial Blood HCO3 22 mmol/L (21-28) Arterial Blood Base Excess -3 mmol/L (-3-3) FiO2 45% vent Glucose (Fingerstick) 155 mg/dL (70-99) 191 mg/dL (70-99) Test 03/14/21 21:24 03/15/21 00:22 03/15/21 06:28 Glucose (Fingerstick) 164 mg/dL (70-99) 138 mg/dL (70-99) 163 mg/dL (70-99) Laboratory Tests Test 03/14/21 12:18 03/14/21 18:20 03/14/21 21:24 03/15/21 00:22 Glucose (Fingerstick) 155 mg/dL (70-99) 191 mg/dL (70-99) 164 mg/dL (70-99) 138 mg/dL (70-99) Test 03/15/21 06:28 Glucose (Fingerstick) 163 mg/dL (70-99) Medications Active Scripts Medications Dose Route/Sig Max Daily Dose Days Date Category Novolog Flexpen (Insulin Aspart) 100 Unit/1 Ml Insuln.pen 3-7 SQ TIDACHC 02/07/21 Reported Lisinopril 5 Mg Tablet 1 Tab PO DAILY 02/07/21 Reported Lantus Solostar (Insulin Glargine,Hum.rec.anlog) 100 Unit/1 Ml Insuln.pen 5 Unit SQ QHS 04/09/15 Reported Atorvastatin Calcium 40 Mg Tablet 40 Mg PO HS 04/09/15 Reported Impression . IMPRESSION: 1. Acute hypoxic respiratory failure secondary to COVID-19 viral pneumonia/acute lung injury and early acute respiratory distress syndrome. S/P intubation 02/17/21 2. Nonsmoker. 3. Abnormal chest x-ray consistent with COVID-19 viral pneumonia.--- 4. Diabetic ketoacidosis 5. Underlying obesity contributing to hypoxia as well. 6. BOB worsening hemodialysis started 03/07 7. Fever, per ID 8. Abnormal chest x-ray with diffuse interstitial infiltrates compatible with viral pneumonia 9. [place] in the sputum is a contamination 10. Septic shock Plan . Updated 03/15 Discussed with RN, continue negative fluid balance doing dialysis Titrate off of norepinephrine Follow chest x-ray Tracheotomy next week Long-term prognosis is poor updated 03/14 Discussed with RN, continue current support Negative fluid balance with dialysis Try treatment titrating norepinephrine off Trach next week Antibiotics per ID C. difficile PCR negative Total cumulative critical care time of 30 minutes, with no overlap updated 03/13 Discussed with RN Continue current support Titrate norepinephrine down Trach schedule for next week Antibiotics per ID Status post steroids and remdesivir Nutritional support DVT GI prophylaxis MONTEZ OROPEZA MD Mar 15, 2021 09:43
[2021-03-15] MEDS: PROPOFOL 100 ML IV PRN ×4 (09:55→19:34)
--- NOTE | 2021-03-15 10:02 | PDOC ---
[facility] [facility] PROGRESS NOTE Date of Service DOS: DATE: 03/15/21 TIME: 10:01 Chief Complaint Chief Complaint Hypotension COVID-19 positive infection Tractable nausea vomiting DKA Combined metabolic and respiratory acidosis Acute electrolyte derangementhyponatremia, hypochloremia due to volume depletion Hyperglycemia uncontrolled BOB due to vasomotor nephropathy Erythrocytosis Reglan for diabetic gastroparesis Candiduria Sacral decubitus ulcer Started on fluconazole today and Zosyn Continue Covid measures Patient intubated Pulmonary following SCD for DVT prophylaxis Protonix GI prophylaxis ADA diet Full code Discussed with RN and SW Disposition inpatient management as above Surrogate decision maker is Brian Whitmore History of Present Illness History of Present Illness Ms Borges is a 46 year old female who presented with nausea/vomiting since 7 AM 02/06/2021 in the morning. Patient stated that her recently tested positive for Covid. She states that he "coughed in my face because he thought it was funny." She reports subjective fevers and chills and nausea/vomiting. Denies sore throat, cough, shortness of breath. No chest pain. Does have some upper abdominal discomfort after vomiting, that she attributes to muscular strain. She was not vaccinated for Covid. 02/08: No acute events overnight. Patient seen and examined bedside and resting comfortably. Continues to complain of nausea not able to tolerate any diet at this time. Saturating 98% on room air. Patient's chart, labs, images were reviewed and discussed with RN 02/09: Afebrile, currently breathing on room air. Still with complaints of nausea and vomiting x3 today. States that she has history of similar symptoms that have been mildly improved with IV Dilaudid. 02/10: Patient febrile today with T-max 102.2 F. She still admits to nausea, denies any further vomiting. We will continue to provide supportive care and monitor for any recurrent fevers overnight. Patient continues to improve may discharge tomorrow to continue self-isolation. 02/11: Febrile overnight, T-max 102.3 F. She did become hypoxic overnight, currently breathing on 4 L nasal cannula. Also admits to associated vomiting or diarrhea overnight. Discussed with RN, will initiate remdesivir and closely monitor LFTs. IV Decadron, and prophylactic antibiotics. 02/12: Low-grade fever overnight, T-max 99.7. Currently breathing on room air. Will discontinue remdesivir, steroids, and antibiotics; will observe overnight. Still with complaints of vomiting x1 and diarrhea. We will continue to provide supportive care and hope to discharge in the next day or so. 02/13: Afebrile. Still complains of intermittent diarrhea. At the time of my evaluation she was breathing on 6 L nasal cannula; this is somewhat misleading as patient states that she did not feel short of breath but was placed on 6 L by nursing staff overnight. 02/14: Afebrile, currently breathing on 8 L nasal cannula. There has been some misleading documentation, chart oxygen this patient is requiring. Discussed with RN, will resume remdesivir to complete total of 5 days. Continue to monitor LFTs. Will add steroids, Rocephin, and azithromycin. 02/15: Afebrile. Became much more hypoxic overnight, requiring BiPAP. At the time of my evaluation she is still breathing on BiPAP. Consultation was placed to pulmonology. Had discussion with Dr. Myrick about initiating Tocilizumab 02/16: No acute events overnight. Patient becoming more hypoxic saturating 94% and requiring BiPAP. Patient will be transferred to the ICU at this time. For worsening clinical status. Discussed with pulmonary. Patient's chart, labs, images were reviewed and discussed with RN 02/17: Transferred to ICU yesterday afternoon. Seen and examined at bedside she remains on 100% FiO2 on BiPAP. Respirations do appear somewhat labored. Suspect intubation may be impending. We will closely monitor. Increase lisinopril to 20 today. 02/18: Patient required intubation yesterday afternoon. Saw and examined this morning. She is intubated and sedated. Increase insulin today. Covid protocol ordered. Wean as tolerated. Plan of care discussed with bedside nurse. 02/19: Bedside. She remains intubated and sedated. Continue Covid protocol. Wean oxygen sedation as tolerated. Pulmonary following. Plan of care discussed with bedside RN. 02/20: Patient seen and examined at bedside. She remains intubated and sedated. No major clinical changes. Continue current treatment. Pulmonary following. Plan of care discussed with bedside RN. 02/21: Patient seen and examined at bedside. Remains intubated and sedated date and admission clinical changes. Increase free water flushes today due to hypernatremia. Plan of care discussed with bedside nurse. 02/22: Patient seen and examined at bedside. O2 requirement actually improving, although remains intubated. Possible SBT in the coming days. Hypernatremia improving. Plan of care discussed bedside RN. 02/23: Patient remains in ICU on ventilator with FiO2 100%, PEEP 7. Repeat chest x-ray yesterday showed diffuse bilateral pulmonary opacities with no interval improvement. Will discontinue Rocephin and initiate Zosyn. We will continue IV steroids for a full 10-day course 02/24: Afebrile. On vent with FiO2 40%, PEEP 6. Her Coreg has been held due to persistent bradycardia. No documented history of systolic heart failure or pre vious echocardiogram. Will need to obtain echocardiogram prior to discharge. Continue IV steroids and antibiotics. 02/25: Afebrile. Remains ventilated with FiO2 45%, PEEP 6. Chest x-ray today showed slight improvement of the pulmonary infiltrates, no pneumothorax. Completed 10-day course of IV Decadron. Will initiate slow Solu-Medrol taper. Continue IV Zosyn. Continue supportive care. 02/26: Afebrile. On vent with FiO2 45%, PEEP 6. Completed 10 days of IV Decadron. Will continue IV Zosyn. Continue supportive care. Critical care time 30 minutes spent reviewing charts, reviewing imaging, reviewing labs, discussion with RN. 02/27: Afebrile. On vent with FiO2 45%, PEEP 6. Completed 10 days of steroids and completed remdesivir. Continue with IV Zosyn. CPAP trial yesterday. Continue NG tube and supportive care. 02/28:. Patient remains on vent with FiO2 40%, PEEP 5. Afebrile. Completed steroids and remdesivir. Some noted hypoglycemia overnight, will de-escalate basal insulin. Continue IV Zosyn. Ventilator management per pulmonology. Continue NG tube and supportive care. 03/01: On vent with FiO2 40%, PEEP 5. Afebrile. Completed steroids and remdesivir. Blood glucose well controlled. Continue empiric antibiotics with Zosyn. Ventilator management per pulmonology. Continue NG tube and supportive care. 03/02: No acute events overnight. Patient hypotensive the morning due to o versedation. Will wean off sedation and keep antihypertensive medications on board. Currently saturating 100% on vent settings of 18/450/40/5. Will attempt spontaneous breathing trial today to see how patient does. 03/03: No acute events overnight. Patient saturating 98% on vent settings of 18/450/40/5. Will defer spontaneous breathing trials to pulmonary at this time. Patient's chart, labs, images were reviewed and discussed with RN 03/04: No acute events overnight. Patient saturating 9 9% on vent settings of 18/450/30/5. Patient currently is unable to tolerate weaning. Per pulmonary. Patient's chart, labs, images were reviewed and discussed with RN 03/05: No acute events overnight. Patient is saturating 97% on vent settings of 18/450/55/5. Her FiO2 needs to be increased due to abnormal ABG with 7.3 . Patient's chart, labs, images were reviewed and discussed with RN 03/06: No acute events overnight. Patient saturating 94% on vent settings of 18/450/55/5. Chest x-ray showing increase in pulmonary infiltrates. Wound care is consulted for decubitus ulcer patient's chart, labs, images were reviewed and discussed with RN 8: No acute events overnight. Patient saturating 94% on vent settings of 20/450/70/8. Patient now heading into renal failure with her creatinine bumped up from 1.5-4.2. Decreased urine output. Plan for hemodialysis today and temporary catheter placement and nephrology is consulted. 03/08: No acute events overnight. Patient did have a nausea vomiting episode and tube feeds were held. KUB repeat shows NG tube still in the stomach. Will resume tube feeds at trickle and advance to goal today. Will start hemodialysis soon. 03/09: Seen on vent 20/450/60%/8. ABG 7.2 WBC 11.4, Hb 7.4, platelets 188, NA 131, K4.9, BUN 48, CR 51, glucose 199, phosphorus 7.9, mag 2.2, AST 265 ALT 219, albumin 1.1. Chest radiograph appears unchanged from prior. Dialysis x1 today 03/10: Afebrile. Seen on vent, 20/450/60/7 with ABG 7.3 . Tolerated dialysis well on 03/09. LFTs similar. 03/11: Afebrile. Seen on vent, sedated. Still requiring Levophed for BP support. WBC 16.7, Hb 8.1, NA 130, ABG 7.3 on 55% FiO2 PEEP 6. On Zosyn and Zyvox Diflucan. Dialysis today 03/12: Afebrile. Still requiring Levophed for BP support sedated with Versed febrile Precedex. WBC 16.1, Hb 8.5, platelets 185, NA 133. Trach plan tentatively 03/17. O2 saturations 93% on 50% FiO2 PEEP 6. ABG 7. On Zosyn and Zyvox Diflucan. 03/13: Afebrile. Still on Levophed for BP support lightly sedated. 7. on 45% FiO2. Plan for dialysis today. On Zosyn and Zyvox Diflucan. More swollen today. 03/14: Afebrile. Weaning down off Levophed. WBC 14.9 NA 132. O2 saturations 92% on 45% FiO2 PEEP 5. Afebrile. O2 saturations 91% on FiO2 45% PEEP 6. Continued on Zosyn and Zyvox Diflucan. Tentative trach planned 03/17/2021 CC time 31 minutes Vitals/I&O Vitals/I&O: Vital Signs Date Time Temp Pulse Resp B/P (MAP) Pulse Ox O2 Delivery O2 Flow Rate FiO2 03/15/21 09:59 98 Ventilator 03/15/21 06:00 66 24 114/71 (85) 03/15/21 04:00 99.5 99.5 03/14/21 12:37 50.0 I & O 03/14/21 03/14/21 03/15/21 15:00 23:00 07:00 Intake Total 600 ml 2168 ml 2062 ml Output Total 30 ml 40 ml Balance 600 ml 2138 ml 2022 ml Physical Exam Physical Exam: GENERAL: Intubated and sedated. HEENT: Normocephalic, atraumatic. Anicteric. Neck right IJ HDC clean LUNGS: Rhonchi. HEART: S1, S2. No murmurs. ABDOMEN: Obese, soft. Bowel sounds present. Nontender, nondistended. GENITOURINARY: Kern and fecal tube in place. EXTREMITIES: Edema present no cyanosis. CENTRAL NERVOUS SYSTEM: Intubated. PSYCHIATRIC: Unable to assess. Derm has pressure wounds wound pictures noted in chart. Generalized rash, PICC line , right IJ HDC clean General: No acute distress Heart: Regular rate Lungs: Clear Abdomen: Normal bowel sounds, Soft, No tenderness Extremities: No clubbing, No cyanosis, Other Skin: No rashes, No significant lesion Labs Labs: Laboratory Tests Test 03/14/21 12:18 03/14/21 18:20 03/14/21 21:24 03/15/21 00:22 Glucose (Fingerstick) 155 mg/dL (70-99) 191 mg/dL (70-99) 164 mg/dL (70-99) 138 mg/dL (70-99) Test 03/15/21 06:28 Glucose (Fingerstick) 163 mg/dL (70-99) Assessment and Plan Assessmemt and Plan Problems Medical Problems: (1) Ketoacidosis Status: Acute Comment Review of Relevant I have reviewed the following items mazin (where applicable) has been applied. Justifications for Admission Other Justification LEO GROSS MD Mar 15, 2021 10:02
--- NOTE | 2021-03-15 13:39 | PDOC ---
Infectious Disease Note Subjective Subjective Pt intubated sedated Vital Sign Vital Signs Vital Signs Date Time Temp Pulse Resp B/P (MAP) Pulse Ox O2 Delivery O2 Flow Rate FiO2 03/15/21 09:59 98 Ventilator 03/15/21 06:00 66 24 114/71 (85) 03/15/21 04:00 99.5 99.5 03/14/21 12:37 50.0 Physical Exam PHYSICAL EXAM GENERAL: Intubated and sedated. HEENT: Normocephalic, atraumatic. Anicteric. Neck right IJ HDC clean LUNGS: Rhonchi. HEART: S1, S2. No murmurs. ABDOMEN: Obese, soft. Bowel sounds present. Nontender, nondistended. GENITOURINARY: Kern and fecal tube in place. EXTREMITIES: Edema present no cyanosis. CENTRAL NERVOUS SYSTEM: Intubated. PSYCHIATRIC: Unable to assess. Derm has pressure wounds wound pictures noted in chart. Generalized rash, PICC line , right IJ HDC clean Labs Lab Laboratory Tests Test 03/14/21 18:20 03/14/21 21:24 03/15/21 00:22 03/15/21 06:28 Glucose (Fingerstick) 191 mg/dL (70-99) 164 mg/dL (70-99) 138 mg/dL (70-99) 163 mg/dL (70-99) Test 03/15/21 12:23 Glucose (Fingerstick) 192 mg/dL (70-99) Micro Microbiology 03/04/21 Gram Stain Evaluation - Final, Complete 03/04/21 Respiratory Culture - Final, Complete 03/04/21 Urine Culture - Final, Complete 03/04/21 Blood Culture - Preliminary, Resulted NO GROWTH AFTER 4 DAYS Objective Assessment 1. Febrile illness. 2. COVID-19 infection present on date of admission, 02/06/2021. Status post remdesivir, dexamethasone. 3. Acute hypoxic respiratory failure, status post intubation. Trach cultures positive for [place] albicans 4. Diabetes. 5. Diarrhea. 6. Hypertension. 7. Hyperlipidemia. 8. Anemia. 9. BOB on HD 10.UC [place], ua neg Plan Plan of Care Continue Zosyn, Continue fluconazole renal dosing 03/07 Follow-up lab ,cultures, C. diff PCR negative Kern changed per team Wound care per wound treatment Offload Continue supportive care. Critically ill. Prognosis guarded. D/W BLANCA CURIEL MD Mar 15, 2021 13:38
[2021-03-15 16:28] LABS: FIO2 ABG 45% VENT
[2021-03-15] MEDS: ATORVASTATIN CALCIUM 40 MG TABLET. PO SCH (21:09)
[2021-03-15] MEDS ORDERED: fentaNYL HIGH DOSE PCA 55 ML IV PRN (21:45)
[2021-03-15] MEDS: fentaNYL HIGH DOSE PCA 55 ML IV PRN (22:03)
[2021-03-16] VITALS (26 sets, daily range): BP systolic 91–197; BP diastolic 54–92
[2021-03-16] MEDS: PROPOFOL 100 ML IV PRN ×5 (00:25→17:12)
[2021-03-16] MEDS: DEXMEDETOMIDINE 400 MCG in IV NORMAL SALINE 100ML 96 ML IV PRN ×7 (01:58→23:10)
[2021-03-16] MEDS: MIDAZOLAM 100mg/100ml NS BAG 100 ML IV PRN ×2 (02:28→20:36)
[2021-03-16] MEDS: PIPERACILLIN/TAZOBACTAM 2.25 GM in IV NORMAL SALINE 50ML 50 ML IV SCH ×3 (06:09→22:00)
[2021-03-16] MEDS: HEPARIN for SUB-Q USE 5,000 UNIT/ML VIAL. SQ SCH ×3 (06:09→21:10)
[2021-03-16] MEDS: INSULIN LISPRO 300 UNITS/3 ML VIAL. SQ SCH ×3 (06:10→17:56)
[2021-03-16 07:25] LABS: ALBUMIN 1.3 g/dL (3.4-5.0); ALBUMIN/GLOBULIN RATIO 0.3 (1.0-1.7); CALCIUM 8.1 mg/dL (8.5-10.1); CREATININE 5.8 mg/dL (0.6-1.0); GFR 7.9; POTASSIUM 4.2 mmol/L (3.5-5.1); TOTAL BILIRUBIN 0.5 mg/dL (0.2-1.0); TOTAL PROTEIN 6.4 g/dL (6.4-8.2)
[2021-03-16] MEDS: DOCUSATE 100 MG/10 ML SOLUTION. PO SCH ×2 (08:10→21:09)
[2021-03-16] MEDS: FLUCONAZOLE 200MG/100ML PREMIX 100 ML IV SCH (08:29)
--- NOTE | 2021-03-16 08:36 | PDOC ---
Infectious Disease Note Subjective Subjective Pt intubated sedated Running fevers ROS ROS No nausea vomiting diarrhea Vital Sign Vital Signs Vital Signs Date Time Temp Pulse Resp B/P (MAP) Pulse Ox O2 Delivery O2 Flow Rate FiO2 03/16/21 08:09 99 Ventilator 03/16/21 08:00 100.1 67 24 101/59 (73) 100.1 03/15/21 16:08 50.0 Physical Exam PHYSICAL EXAM GENERAL: Intubated and sedated. HEENT: Normocephalic, atraumatic. Anicteric. Neck right IJ HDC clean LUNGS: Rhonchi. HEART: S1, S2. No murmurs. ABDOMEN: Obese, soft. Bowel sounds present. Nontender, nondistended. GENITOURINARY: Kern and fecal tube in place. EXTREMITIES: Edema present no cyanosis. CENTRAL NERVOUS SYSTEM: Intubated. PSYCHIATRIC: Unable to assess. Derm has pressure wounds wound pictures noted in chart. Generalized rash, PICC line , right IJ HDC clean Labs Lab Laboratory Tests Test 03/15/21 09:30 03/15/21 12:23 03/15/21 18:08 03/16/21 06:05 O2 Saturation 92 % (92-99) Arterial Blood pH 7.33 (7.35-7.45) Arterial Blood pCO2 at Patient Temp 40 mmHg (35-46) Arterial Blood pO2 at Patient Temp 69 mmHg (75-108) Arterial Blood HCO3 21 mmol/L (21-28) Arterial Blood Base Excess -5 mmol/L (-3-3) FiO2 45% vent Glucose (Fingerstick) 192 mg/dL (70-99) 154 mg/dL (70-99) 176 mg/dL (70-99) Test 03/16/21 06:10 Sodium Level 125 mmol/L (136-145) Potassium Level 4.2 mmol/L (3.5-5.1) Chloride Level 90 mmol/L (98-107) Carbon Dioxide Level 23 mmol/L (21-32) Anion Gap 12 (6-14) Blood Urea Nitrogen 43 mg/dL (7-20) Creatinine 5.8 mg/dL (0.6-1.0) Estimated GFR (Cockcroft-Gault) 7.9 BUN/Creatinine Ratio 7 (6-20) Glucose Level 181 mg/dL (70-99) Calcium Level 8.1 mg/dL (8.5-10.1) Total Bilirubin 0.5 mg/dL (0.2-1.0) Aspartate Amino Transf (AST/SGOT) 35 U/L (15-37) Alanine Aminotransferase (ALT/SGPT) 50 U/L (14-59) Alkaline Phosphatase 457 U/L (46-116) Total Protein 6.4 g/dL (6.4-8.2) Albumin 1.3 g/dL (3.4-5.0) Albumin/Globulin Ratio 0.3 (1.0-1.7) Micro Microbiology 03/04/21 Gram Stain Evaluation - Final, Complete 03/04/21 Respiratory Culture - Final, Complete 03/04/21 Urine Culture - Final, Complete 03/04/21 Blood Culture - Preliminary, Resulted NO GROWTH AFTER 4 DAYS Objective Assessment 1. Febrile illness. 2. COVID-19 infection present on date of admission, 02/06/2021. Status post remdesivir, dexamethasone. 3. Acute hypoxic respiratory failure, status post intubation. Trach cultures positive for [place] albicans 4. Diabetes. 5. Diarrhea. 6. Hypertension. 7. Hyperlipidemia. 8. Anemia. 9. BOB on HD 10.UC [place], ua neg Plan Plan of Care Continue Zosyn, Continue fluconazole renal dosing 03/07 Follow-up lab ,cultures, C. diff PCR negative Kern changed per team Wound care per wound treatment Offload Continue supportive care. Critically ill. Prognosis guarded. Panculture Add Zyvox D/W BLANCA CURIEL MD Mar 16, 2021 08:36
[2021-03-16 08:58] LABS: BASE EXCESS ABG -8 mmol/L (-3-3); HCO3 ABG 18 mmol/L (21-28); PCO2 ABG 36 mmHg (35-46); PO2 ABG 82 mmHg (75-108); SAT O2 ABG 94 % (92-99)
[2021-03-16 09:03] LABS: FIO2 ABG 45
[2021-03-16] MEDS: FAMOTIDINE 20 MG/2 ML VIAL IVP SCH (09:25)
[2021-03-16] MEDS: MULTIVITAMINS,THERAPEUTIC 5 ML ORAL LIQUID. PEG SCH (09:25)
[2021-03-16] MEDS: INSULIN GLARGINE SYRINGE. SQ SCH ×2 (09:27→21:13)
[2021-03-16] MEDS: NYSTATIN TOPICAL POWDER 15GM BOTTLE. TP SCH ×2 (09:27→21:00)
--- NOTE | 2021-03-16 09:47 | RAD ---
XR CHEST 1V INDICATION: RF / Spl. Instructions: / History: . COMPARISON STUDY: 03/13/2021. FINDINGS: Life Support Devices: Stable endotracheal tube, enteric tube, right IJ dual-lumen catheter, right PIC C. Lungs: Low lung volume. Stable diffuse bilateral opacities. Pleura: Stable pleural spaces. Heart and Mediastinum: Stable cardiomediastinal silhouette and great vessels. Bones and Soft Tissues: Stable regional skeleton and soft tissues. IMPRESSION: 1. Stable life support devices. 2. Stable diffuse bilateral opacities. Electronically signed by: Michael Dominique MD (03/16/2021 9:45 AM) [id number]
[2021-03-16] MEDS: VECURONIUM BOLUS 10 MG VIAL. IV PRN (10:16)
--- NOTE | 2021-03-16 11:04 | PDOC ---
PULMONARY PROGRESS NOTES DATE: 03/16/21 TIME: 11:02 Subjective Discussed with RN did not undergo hemodialysis yesterday no overnight events Patient appears to be retaining fluids Currently on 45% FiO2 6 PEEP Vitals Vital Signs Date Time Temp Pulse Resp B/P (MAP) Pulse Ox O2 Delivery O2 Flow Rate FiO2 03/16/21 10:09 65 24 106/68 (81) 99 Ventilator 03/16/21 08:00 100.1 100.1 03/15/21 16:08 50.0 Lungs: Clear Cardiovascular: S1 Abdomen: Soft Skin: Warm Labs Laboratory Tests Test 03/14/21 12:18 03/14/21 18:20 03/14/21 21:24 03/15/21 00:22 Glucose (Fingerstick) 155 mg/dL (70-99) 191 mg/dL (70-99) 164 mg/dL (70-99) 138 mg/dL (70-99) Test 03/15/21 06:28 03/15/21 09:30 03/15/21 12:23 03/15/21 18:08 Glucose (Fingerstick) 163 mg/dL (70-99) 192 mg/dL (70-99) 154 mg/dL (70-99) O2 Saturation 92 % (92-99) Arterial Blood pH 7.33 (7.35-7.45) Arterial Blood pCO2 at Patient Temp 40 mmHg (35-46) Arterial Blood pO2 at Patient Temp 69 mmHg (75-108) Arterial Blood HCO3 21 mmol/L (21-28) Arterial Blood Base Excess -5 mmol/L (-3-3) FiO2 45% vent Test 03/16/21 06:05 03/16/21 06:10 03/16/21 08:45 Glucose (Fingerstick) 176 mg/dL (70-99) Sodium Level 125 mmol/L (136-145) Potassium Level 4.2 mmol/L (3.5-5.1) Chloride Level 90 mmol/L (98-107) Carbon Dioxide Level 23 mmol/L (21-32) Anion Gap 12 (6-14) Blood Urea Nitrogen 43 mg/dL (7-20) Creatinine 5.8 mg/dL (0.6-1.0) Estimated GFR (Cockcroft-Gault) 7.9 BUN/Creatinine Ratio 7 (6-20) Glucose Level 181 mg/dL (70-99) Calcium Level 8.1 mg/dL (8.5-10.1) Total Bilirubin 0.5 mg/dL (0.2-1.0) Aspartate Amino Transf (AST/SGOT) 35 U/L (15-37) Alanine Aminotransferase (ALT/SGPT) 50 U/L (14-59) Alkaline Phosphatase 457 U/L (46-116) Total Protein 6.4 g/dL (6.4-8.2) Albumin 1.3 g/dL (3.4-5.0) Albumin/Globulin Ratio 0.3 (1.0-1.7) O2 Saturation 94 % (92-99) Arterial Blood pH 7.31 (7.35-7.45) Arterial Blood pCO2 at Patient Temp 36 mmHg (35-46) Arterial Blood pO2 at Patient Temp 82 mmHg (75-108) Arterial Blood HCO3 18 mmol/L (21-28) Arterial Blood Base Excess -8 mmol/L (-3-3) FiO2 45 Laboratory Tests Test 03/15/21 12:23 03/15/21 18:08 03/16/21 06:05 03/16/21 06:10 Glucose (Fingerstick) 192 mg/dL (70-99) 154 mg/dL (70-99) 176 mg/dL (70-99) Sodium Level 125 mmol/L (136-145) Potassium Level 4.2 mmol/L (3.5-5.1) Chloride Level 90 mmol/L (98-107) Carbon Dioxide Level 23 mmol/L (21-32) Anion Gap 12 (6-14) Blood Urea Nitrogen 43 mg/dL (7-20) Creatinine 5.8 mg/dL (0.6-1.0) Estimated GFR (Cockcroft-Gault) 7.9 BUN/Creatinine Ratio 7 (6-20) Glucose Level 181 mg/dL (70-99) Calcium Level 8.1 mg/dL (8.5-10.1) Total Bilirubin 0.5 mg/dL (0.2-1.0) Aspartate Amino Transf (AST/SGOT) 35 U/L (15-37) Alanine Aminotransferase (ALT/SGPT) 50 U/L (14-59) Alkaline Phosphatase 457 U/L (46-116) Total Protein 6.4 g/dL (6.4-8.2) Albumin 1.3 g/dL (3.4-5.0) Albumin/Globulin Ratio 0.3 (1.0-1.7) Test 03/16/21 08:45 O2 Saturation 94 % (92-99) Arterial Blood pH 7.31 (7.35-7.45) Arterial Blood pCO2 at Patient Temp 36 mmHg (35-46) Arterial Blood pO2 at Patient Temp 82 mmHg (75-108) Arterial Blood HCO3 18 mmol/L (21-28) Arterial Blood Base Excess -8 mmol/L (-3-3) FiO2 45 Medications Active Scripts Medications Dose Route/Sig Max Daily Dose Days Date Category Novolog Flexpen (Insulin Aspart) 100 Unit/1 Ml Insuln.pen 3-7 SQ TIDACHC 02/07/21 Reported Lisinopril 5 Mg Tablet 1 Tab PO DAILY 02/07/21 Reported Lantus Solostar (Insulin Glargine,Hum.rec.anlog) 100 Unit/1 Ml Insuln.pen 5 Unit SQ QHS 04/09/15 Reported Atorvastatin Calcium 40 Mg Tablet 40 Mg PO HS 04/09/15 Reported Impression . IMPRESSION: 1. Acute hypoxic respiratory failure secondary to COVID-19 viral pneumonia/acute lung injury and early acute respiratory distress syndrome. S/P intubation 02/17/21 2. Nonsmoker. 3. Abnormal chest x-ray consistent with COVID-19 viral pneumonia.--- 4. Diabetic ketoacidosis 5. Underlying obesity contributing to hypoxia as well. 6. BOB worsening hemodialysis started 03/07 7. Fever, per ID 8. Abnormal chest x-ray with diffuse interstitial infiltrates compatible with viral pneumonia 9. [place] in the sputum is a contamination 10. Septic shock Venous Dopplers lower extremities Impression: No evidence of deep venous thrombosis bilateral lower extremity venous system. Plan . Updated 03/16 Continue antibiotics per ID Hemodialysis today, negative fluid balance Status post remdesivir and dexamethasone Follow wound care input Prognosis poor Unable to titrate off norepinephrine Chest x-ray reviewed ABG noted updated 03/15 Discussed with RN, continue negative fluid balance doing dialysis Titrate off of norepinephrine Follow chest x-ray Tracheotomy next week Long-term prognosis is poor updated 03/14 Discussed with RN, continue current support Negative fluid balance with dialysis Try treatment titrating norepinephrine off Trach next week Antibiotics per ID C. difficile PCR negative Total cumulative critical care time of 30 minutes, with no overlap updated 03/13 Discussed with RN Continue current support Titrate norepinephrine down Trach schedule for next week Antibiotics per ID Status post steroids and remdesivir Nutritional support DVT GI prophylaxis MONTEZ OROPEZA MD Mar 16, 2021 11:04
--- NOTE | 2021-03-16 12:07 | PDOC ---
PROGRESS NOTES Date of Service DATE: 03/16/21 TIME: 12:04 Subjective Subjective SEEN IN FOLLOW UP OF ARF Objective Objective Vital Signs Date Time Temp Pulse Resp B/P (MAP) Pulse Ox O2 Delivery O2 Flow Rate FiO2 03/16/21 11:18 97 Ventilator 03/16/21 11:00 66 24 176/88 (117) 03/16/21 08:00 100.1 100.1 03/15/21 16:08 50.0 Intake and Output 03/16/21 07:00 Intake Total 5060.6 ml Output Total 67 ml Balance 4993.6 ml IV Total 1802.6 ml Tube Feeding 2208 ml Other 1050 ml Output Urine Total 67 ml Gastric Drainage Total 0 ml Physical Exam Abdomen: Normal bowel sounds, Soft, No tenderness, No hepatosplenomegaly, No masses Heart: Regular rate, Normal S1, Normal S2, No murmurs, Gallops Extremities: Other (ANASARCA) General: Other (SEDATED) Lungs: Clear to auscultation, Other (INTUBATED) Psych/Mental Status: Other (SEDATED) Assessment Assessment Problems Medical Problems: (1) Ketoacidosis Status: Acute Plan Plan of Care FOR DIALYSIS TODAY. DUE TO SEVERE ANASARCA WILL PLAN ON DAILY DIALYSIS AND FOLLOW Comment Review of Relevant I have reviewed the following items mazin (where applicable) has been applied. Labs Laboratory Tests Test 03/14/21 12:18 03/14/21 18:20 03/14/21 21:24 03/15/21 00:22 Glucose (Fingerstick) 155 mg/dL (70-99) 191 mg/dL (70-99) 164 mg/dL (70-99) 138 mg/dL (70-99) Test 03/15/21 06:28 03/15/21 09:30 03/15/21 12:23 03/15/21 18:08 Glucose (Fingerstick) 163 mg/dL (70-99) 192 mg/dL (70-99) 154 mg/dL (70-99) O2 Saturation 92 % (92-99) Arterial Blood pH 7.33 (7.35-7.45) Arterial Blood pCO2 at Patient Temp 40 mmHg (35-46) Arterial Blood pO2 at Patient Temp 69 mmHg (75-108) Arterial Blood HCO3 21 mmol/L (21-28) Arterial Blood Base Excess -5 mmol/L (-3-3) FiO2 45% vent Test 03/16/21 06:05 03/16/21 06:10 03/16/21 08:45 03/16/21 11:59 Glucose (Fingerstick) 176 mg/dL (70-99) 237 mg/dL (70-99) Sodium Level 125 mmol/L (136-145) Potassium Level 4.2 mmol/L (3.5-5.1) Chloride Level 90 mmol/L (98-107) Carbon Dioxide Level 23 mmol/L (21-32) Anion Gap 12 (6-14) Blood Urea Nitrogen 43 mg/dL (7-20) Creatinine 5.8 mg/dL (0.6-1.0) Estimated GFR (Cockcroft-Gault) 7.9 BUN/Creatinine Ratio 7 (6-20) Glucose Level 181 mg/dL (70-99) Calcium Level 8.1 mg/dL (8.5-10.1) Total Bilirubin 0.5 mg/dL (0.2-1.0) Aspartate Amino Transf (AST/SGOT) 35 U/L (15-37) Alanine Aminotransferase (ALT/SGPT) 50 U/L (14-59) Alkaline Phosphatase 457 U/L (46-116) Total Protein 6.4 g/dL (6.4-8.2) Albumin 1.3 g/dL (3.4-5.0) Albumin/Globulin Ratio 0.3 (1.0-1.7) O2 Saturation 94 % (92-99) Arterial Blood pH 7.31 (7.35-7.45) Arterial Blood pCO2 at Patient Temp 36 mmHg (35-46) Arterial Blood pO2 at Patient Temp 82 mmHg (75-108) Arterial Blood HCO3 18 mmol/L (21-28) Arterial Blood Base Excess -8 mmol/L (-3-3) FiO2 45 Laboratory Tests Test 03/15/21 12:23 03/15/21 18:08 03/16/21 06:05 03/16/21 06:10 Glucose (Fingerstick) 192 mg/dL (70-99) 154 mg/dL (70-99) 176 mg/dL (70-99) Sodium Level 125 mmol/L (136-145) Potassium Level 4.2 mmol/L (3.5-5.1) Chloride Level 90 mmol/L (98-107) Carbon Dioxide Level 23 mmol/L (21-32) Anion Gap 12 (6-14) Blood Urea Nitrogen 43 mg/dL (7-20) Creatinine 5.8 mg/dL (0.6-1.0) Estimated GFR (Cockcroft-Gault) 7.9 BUN/Creatinine Ratio 7 (6-20) Glucose Level 181 mg/dL (70-99) Calcium Level 8.1 mg/dL (8.5-10.1) Total Bilirubin 0.5 mg/dL (0.2-1.0) Aspartate Amino Transf (AST/SGOT) 35 U/L (15-37) Alanine Aminotransferase (ALT/SGPT) 50 U/L (14-59) Alkaline Phosphatase 457 U/L (46-116) Total Protein 6.4 g/dL (6.4-8.2) Albumin 1.3 g/dL (3.4-5.0) Albumin/Globulin Ratio 0.3 (1.0-1.7) Test 03/16/21 08:45 03/16/21 11:59 O2 Saturation 94 % (92-99) Arterial Blood pH 7.31 (7.35-7.45) Arterial Blood pCO2 at Patient Temp 36 mmHg (35-46) Arterial Blood pO2 at Patient Temp 82 mmHg (75-108) Arterial Blood HCO3 18 mmol/L (21-28) Arterial Blood Base Excess -8 mmol/L (-3-3) FiO2 45 Glucose (Fingerstick) 237 mg/dL (70-99) Microbiology 03/04/21 Gram Stain Evaluation - Final, Complete 03/04/21 Respiratory Culture - Final, Complete 03/04/21 Urine Culture - Final, Complete 03/04/21 Blood Culture - Final, Complete NO GROWTH AFTER 5 DAYS Medications Current Medications Ondansetron HCl (Zofran Odt) 4 mg 1X ONCE PO Last administered on 02/06/21at 23:57; Start 02/06/21 at 23:30; Stop 02/06/21 at 23:31; Status DC Haloperidol Lactate (Haldol Inj) 2.5 mg 1X ONCE IM ; Start 02/07/21 at 02:30; Stop 02/07/21 at 03:56; Status DC Sodium Chloride 1,000 ml @ 1,000 mls/hr 1X ONCE IV Last administered on 02/07/21at 03:41; Start 02/07/21 at 02:30; Stop 02/07/21 at 03:29; Status DC Hydromorphone HCl (Dilaudid) 1 mg 1X ONCE IVP Last administered on 02/07/21at 04:13; Start 02/07/21 at 04:30; Stop 02/07/21 at 04:31; Status DC Sodium Chloride 1,000 ml @ 1,000 mls/hr 1X ONCE IV Last administered on 02/07/21at 10:39; Start 02/07/21 at 06:30; Stop 02/07/21 at 07:29; Status DC Insulin Human Regular 100 unit/ Sodium Chloride 101 ml @ 0 mls/hr CONT PRN PRN IV PER PROTOCOL; Start 02/07/21 at 06:00; Stop 02/07/21 at 16:54; Status DC Potassium Chloride/Water 100 ml @ 100 mls/hr PRN Q1HR PRN IV SEE COMMENTS; Start 02/07/21 at 06:00; Stop 02/07/21 at 16:54; Status DC Potassium Chloride/Water 100 ml @ 100 mls/hr PRN Q1HR PRN IV SEE COMMENTS; Start 02/07/21 at 06:00; Stop 02/07/21 at 16:54; Status DC Potassium Chloride/Water 100 ml @ 100 mls/hr PRN Q1HR PRN IV SEE COMMENTS; Start 02/07/21 at 06:00; Stop 02/07/21 at 16:54; Status DC Insulin Human Regular 100 ml @ 10 mls/hr 1X ONCE IV Last administered on 02/07/21at 09:31; Start 02/07/21 at 06:30; Stop 02/07/21 at 16:54; Status DC Sennosides (Senna) 17.2 mg PRN BID PRN PO CONSTIPATION Last administered on 02/22/21at 08:29; Start 02/07/21 at 08:45 Docusate Sodium (Colace) 100 mg PRN DAILY PRN PO HARD STOOLS; Start 02/07/21 at 08:45; Stop 02/23/21 at 10:47; Status DC Ondansetron HCl (Zofran) 4 mg PRN Q6HRS PRN IVP NAUSEA/VOMITING 1ST CHOICE Last administered on 02/16/21at 15:58; Start 02/07/21 at 08:45 Dextrose (Dextrose 50%-Water Syringe) 12.5 gm PRN Q15MIN PRN IV SEE COMMENTS; Start 02/07/21 at 08:45; Stop 02/08/21 at 16:56; Status DC Sodium Chloride 1,000 ml @ 200 mls/hr Q5H IV Last administered on 02/08/21at 04:05; Start 02/07/21 at 08:45; Stop 02/08/21 at 08:44; Status DC Acetaminophen (Tylenol) 650 mg PRN Q4HRS PRN PO FEVER > 101 Last administered on 02/13/21at 21:35; Start 02/07/21 at 08:45; Stop 02/17/21 at 10:45; Status DC Prochlorperazine Edisylate (Compazine) 10 mg PRN Q6HRS PRN IV NAUSEA/VOMITING 2ND CHOICE Last administered on 02/12/21at 10:35; Start 02/07/21 at 08:45 Insulin Glargine (Lantus Syringe) 5 unit BID SQ Last administered on 02/08/21at 10:24; Start 02/07/21 at 17:00; Stop 02/08/21 at 20:11; Status DC Insulin Human Lispro (HumaLOG) 0-7 UNITS Q4HRS SQ Last administered on 02/08/21at 00:00; Start 02/07/21 at 20:00; Stop 02/08/21 at 00:50; Status DC Dextrose (Dextrose 50%-Water Syringe) 12.5 gm PRN Q15MIN PRN IV SEE COMMENTS; Start 02/07/21 at 17:00; Stop 02/17/21 at 10:45; Status DC Ondansetron HCl (Zofran) 4 mg 1X ONCE IVP Last administered on 02/07/21at 20:06; Start 02/07/21 at 20:00; Stop 02/07/21 at 20:07; Status DC Insulin Human Lispro (HumaLOG) 0-9 UNITS Q4HRS SQ Last administered on 02/13/21at 17:36; Start 02/08/21 at 04:00; Stop 02/13/21 at 21:44; Status DC Metoclopramide HCl (Reglan Vial) 10 mg PRN Q6HRS PRN IVP NAUSEA/VOMITING 3RD CHOICE Last administered on 02/12/21at 15:51; Start 02/08/21 at 00:45 Labetalol HCl (Normodyne Iv Push) 10 mg PRN Q2HR PRN IVP HYPERTENSION, 1st choice Last administered on 02/17/21at 07:19; Start 02/08/21 at 00:45 Acetaminophen (Tylenol Supp) 650 mg PRN Q6HRS PRN [place] FEVER > 101; Start 02/08/21 at 01:45; Stop 02/17/21 at 10:45; Status DC Lorazepam (Ativan Inj) 0.5 mg PRN Q6HRS PRN IVP ANXIETY / AGITATION Last administered on 02/16/21at 22:07; Start 02/08/21 at 10:00 Enalaprilat (Vasotec Inj) 0.625 mg Q6HRS IVP Last administered on 02/09/21at 13:42; Start 02/08/21 at 16:15; Stop 02/09/21 at 16:01; Status DC Insulin Glargine (Lantus Syringe) 15 unit BID SQ Last administered on 02/17/21at 20:29; Start 02/08/21 at 21:00; Stop 02/18/21 at 08:09; Status DC Insulin Human Lispro (HumaLOG) 3 units TIDAC SQ Last administered on 02/16/21at 09:10; Start 02/09/21 at 07:30; Stop 02/16/21 at 23:51; Status DC Carvedilol (Coreg) 6.25 mg BIDWMEALS PO Last administered on 02/23/21at 08:06; Start 02/08/21 at 20:30; Stop 02/23/21 at 15:50; Status DC Atorvastatin Calcium (Lipitor) 40 mg HS PO Last administered on 03/15/21at 21:09; Start 02/08/21 at 21:00 Lisinopril (Prinivil) 5 mg DAILY PO Last administered on 02/09/21at 09:48; Start 02/09/21 at 09:00; Stop 02/09/21 at 13:04; Status DC Sodium Chloride 1,000 ml @ 100 mls/hr Q10H IV Last administered on 02/16/21at 12:15; Start 02/09/21 at 07:00; Stop 02/17/21 at 15:37; Status DC Enoxaparin Sodium (Lovenox Per Pharmacy Prophylaxis Dosing) 1 each PRN DAILY PRN MC SEE COMMENTS; Start 02/09/21 at 06:45; Stop 03/12/21 at 15:38; Status DC Enoxaparin Sodium (Lovenox 40mg Syringe) 40 mg BID SQ Last administered on 03/08/21at 08:26; Start 02/09/21 at 09:00; Stop 03/08/21 at 13:56; Status DC Lisinopril (Prinivil) 10 mg DAILY PO Last administered on 02/16/21at 09:06; Start 02/10/21 at 09:00; Stop 02/17/21 at 08:29; Status DC Hydromorphone HCl (Dilaudid) 2 mg PRN Q6HRS PRN IVP PAIN Last administered on 02/15/21at 22:00; Start 02/09/21 at 17:15; Stop 02/21/21 at 05:27; Status DC Benzonatate (Tessalon Perle) 100 mg [id number] PO Last administered on 02/16/21at 22:07; Start 02/10/21 at 23:30; Stop 02/17/21 at 10:45; Status DC Guaifenesin (Robitussin Dm) 10 ml PRN Q6HRS PRN PO COUGH Last administered on 02/16/21at 09:06; Start 02/10/21 at 23:30 Remdesivir 200 mg/ Sodium Chloride 210 ml @ 210 mls/hr 1X ONCE IV Last administered on 02/11/21at 14:33; Start 02/11/21 at 13:00; Stop 02/12/21 at 11:55; Status DC Remdesivir 100 mg/ Sodium Chloride 230 ml @ 460 mls/hr Q24H IV ; Start 02/12/21 at 13:00; Stop 02/12/21 at 11:55; Status DC Hydralazine HCl (Apresoline Inj) 10 mg PRN Q4HRS PRN IVP ELEVATED BP, 2nd choice Last administered on 02/26/21at 11:23; Start 02/11/21 at 12:15 Ceftriaxone Sodium (Rocephin) 1 gm Q24H IVP Last administered on 02/11/21at 12:55; Start 02/11/21 at 12:30; Stop 02/12/21 at 11:55; Status DC Dexamethasone Sodium Phosphate (Decadron) 6 mg DAILY IVP Last administered on 02/12/21at 09:34; Start 02/11/21 at 13:00; Stop 02/12/21 at 11:55; Status DC Potassium Chloride (Klor-Con) 40 meq 1X ONCE PO Last administered on 02/13/21at 11:11; Start 02/13/21 at 10:30; Stop 02/13/21 at 10:47; Status DC Potassium Chloride (Klor-Con) 40 meq 1X ONCE PO Last administered on 02/13/21at 13:21; Start 02/13/21 at 12:00; Stop 02/13/21 at 12:01; Status DC Insulin Human Lispro (HumaLOG) 0-9 UNITS QIDACHS SQ Last administered on 02/15/21at 22:01; Start 02/14/21 at 07:30; Stop 02/16/21 at 23:51; Status DC Remdesivir 100 mg/ Sodium Chloride 230 ml @ 460 mls/hr Q24H IV Last ad ministered on 02/18/21at 11:52; Start 02/15/21 at 12:00; Stop 02/18/21 at 12:29; Status DC Dexamethasone Sodium Phosphate (Decadron) 6 mg DAILY IVP Last administered on 02/24/21at 08:12; Start 02/15/21 at 09:00; Stop 02/25/21 at 06:41; Status DC Dexamethasone Sodium Phosphate (Decadron) 6 mg 1X ONCE IVP ; Start 02/14/21 at 12:45; Stop 02/14/21 at 12:46; Status DC Ceftriaxone Sodium (Rocephin) 1 gm Q24H IVP Last administered on 02/22/21at 12:42; Start 02/14/21 at 13:00; Stop 02/23/21 at 07:34; Status DC Azithromycin 250 mg/Sodium Chloride 250 ml @ 250 mls/hr Q24H IV Last administered on 02/18/21at 11:51; Start 02/14/21 at 13:30; Stop 02/18/21 at 14:29; Status DC Dexamethasone Sodium Phosphate (Decadron) 6 mg 1X ONCE IVP Last administered on 02/14/21at 18:17; Start 02/14/21 at 17:15; Stop 02/14/21 at 17:16; Status DC Alteplase, Recombinant (Cathflo For Central Catheter Clearance) 1 mg 1X ONCE INT CAT Last administered on 02/16/21at 08:41; Start 02/16/21 at 08:00; Stop 02/16/21 at 08:01; Status DC Dexmedetomidine HCl 400 mcg/ Sodium Chloride 100 ml @ 0 mls/hr CONT PRN IV PER PROTOCOL Last administered on 02/17/21at 20:27; Start 02/16/21 at 12:00; Stop 02/27/21 at 09:37; Status DC Sodium Chloride 500 ml @ 500 mls/hr 1X PRN PRN IV SEE COMMENTS; Start 02/16/21 at 12:00 Atropine Sulfate (ATROPINE 0.5mg SYRINGE) 0.5 mg PRN Q5MIN PRN IV SEE COMMENTS; Start 02/16/21 at 12:00 Lactobacillus Rhamnosus (Culturelle) 1 cap BID PO Last administered on 02/16/21at 22:02; Start 02/16/21 at 21:00; Stop 02/17/21 at 10:45; Status DC Famotidine (Pepcid Vial) 20 mg BID IVP Last administered on 03/09/21at 09:27; Start 02/16/21 at 21:00; Stop 03/09/21 at 10:41; Status DC Furosemide (Lasix) 20 mg 1X ONCE IVP Last administered on 02/16/21at 18:38; Start 02/16/21 at 18:30; Stop 02/16/21 at 18:34; Status DC Furosemide (Lasix) 20 mg 1X ONCE IVP Last administered on 02/16/21at 22:18; Start 02/16/21 at 22:15; Stop 02/16/21 at 22:16; Status DC Insulin Human Lispro (HumaLOG) 3 units Q6HRS SQ Last administered on 02/18/21at 05:40; Start 02/17/21 at 00:00; Stop 02/18/21 at 08:09; Status DC Insulin Human Lispro (HumaLOG) 0-9 UNITS Q6HRS SQ Last administered on 03/16/21at 06:10; Start 02/17/21 at 00:00 Lisinopril (Prinivil) 20 mg DAILY PO Last administered on 02/27/21at 09:10; Start 02/17/21 at 09:00; Stop 03/09/21 at 10:43; Status DC Fentanyl Citrate 30 ml @ 0 mls/hr CONT PRN IV SEE PROTOCOL Last administered on 03/15/21at 16:08; Start 02/17/21 at 10:00; Stop 03/15/21 at 23:00; Status DC Propofol 100 ml @ 0 mls/hr CONT PRN IV PER PROTOCOL Last administered on 03/16/21at 08:09; Start 02/17/21 at 10:00 Glycerin/ Hypromellose/ Polyethylene (Artificial Tears) 1 drop PRN Q1HR PRN OU DRY EYE; Start 02/17/21 at 10:00 Midazolam HCl 100 ml @ 0 mls/hr CONT PRN IV SEE PROTOCOL Last administered on 03/16/21at 02:28; Start 02/17/21 at 10:00 Succinylcholine Chloride (Anectine) 200 mg STK-MED ONCE .ROUTE ; Start 02/17/21 at 09:58; Stop 02/17/21 at 09:58; Status DC Acetaminophen (Tylenol) 650 mg PRN Q6HRS PRN PEG MILD PAIN / TEMP > 100.3'F Last administered on 03/08/21at 21:43; Start 02/17/21 at 10:45 Insulin Glargine (Lantus Syringe) 20 unit BID SQ Last administered on 02/18/21at 20:54; Start 02/18/21 at 09:00; Stop 02/19/21 at 07:47; Status DC Insulin Human Lispro (HumaLOG) 5 units Q6HRS SQ Last administered on 02/19/21at 06:23; Start 02/18/21 at 12:00; Stop 02/19/21 at 07:47; Status DC Insulin Glargine (Lantus Syringe) 25 unit BID SQ Last administered on 02/27/21at 20:42; Start 02/19/21 at 09:00; Stop 02/28/21 at 09:34; Status DC Insulin Human Lispro (HumaLOG) 8 units Q6HRS SQ Last administered on 02/19/21at 11:33; Start 02/19/21 at 12:00; Stop 02/19/21 at 12:32; Status DC Insulin Human Lispro (HumaLOG) 10 units Q6HRS SQ Last administered on 02/20/21at 06:38; Start 02/19/21 at 18:00; Stop 02/20/21 at 08:14; Status DC Insulin Human Lispro (HumaLOG) 12 units Q6HRS SQ Last administered on 02/27/21at 05:41; Start 02/20/21 at 12:00; Stop 02/28/21 at 15:38; Status DC Piperacillin Sod/ Tazobactam Sod (Zosyn Per Pharmacy) 1 each PRN DAILY PRN MC SEE COMMENTS; Start 02/23/21 at 07:45 Piperacillin Sod/ Tazobactam Sod 4.5 gm/Sodium Chloride 100 ml @ 200 mls/hr Q6HRS IV Last administered on 03/07/21at 06:12; Start 02/23/21 at 08:00; Stop 03/07/21 at 08:18; Status DC Docusate Sodium (Colace Solution) 100 mg BID PO Last administered on 03/13/21at 11:50; Start 02/23/21 at 12:00 Amlodipine Besylate (Norvasc) 5 mg DAILY NG Last administered on 02/27/21at 09:10; Start 02/24/21 at 09:00; Stop 03/09/21 at 10:43; Status DC Methylprednisolone Sodium Succinate (SOLU-Medrol 125MG VIAL) 80 mg Q8HRS IV Last administered on 02/26/21at 05:52; Start 02/25/21 at 09:00; Stop 02/26/21 at 07:09; Status DC Succinylcholine Chloride (Anectine) 200 mg STK-MED ONCE .ROUTE ; Start 02/17/21 at 10:00; Stop 02/25/21 at 08:40; Status DC Dexamethasone Sodium Phosphate (Decadron) 4 mg 1X ONCE IVP ; Start 02/26/21 at 10:00; Stop 02/26/21 at 07:15; Status DC Dexamethasone Sodium Phosphate (Decadron) 2 mg 1X ONCE IVP ; Start 02/27/21 at 09:00; Stop 02/26/21 at 07:15; Status DC Dexmedetomidine HCl 400 mcg/ Sodium Chloride 100 ml @ 0 mls/hr CONT PRN IV PER PROTOCOL Last administered on 03/16/21at 10:47; Start 02/27/21 at 09:45 Sodium Chloride 500 ml @ 500 mls/hr 1X PRN PRN IV SEE COMMENTS; Start 02/27/21 at 09:45; Status Cancel Alteplase, Recombinant (Cathflo) 2 mg 1X ONCE INT CAT Last administered on 02/27/21at 11:20; Start 02/27/21 at 11:00; Stop 02/27/21 at 11:01; Status DC Alteplase, Recombinant (Cathflo For Central Catheter Clearance) 1 mg 1X ONCE INT CAT Last administered on 02/27/21at 15:18; Start 02/27/21 at 14:30; Stop 02/27/21 at 14:36; Status DC Alteplase, Recombinant (Cathflo For Central Catheter Clearance) 1 mg 1X ONCE IN T CAT Last administered on 02/27/21at 15:19; Start 02/27/21 at 14:30; Stop 02/27/21 at 14:36; Status DC Dextrose (Dextrose 50%-Water Syringe) 25 gm STK-MED ONCE IV ; Start 02/27/21 at 23:48; Stop 02/27/21 at 23:48; Status DC Dextrose (Dextrose 50%-Water Syringe) 25 gm 1X ONCE IV Last administered on 02/27/21at 23:55; Start 02/28/21 at 00:00; Stop 02/28/21 at 00:01; Status DC Insulin Glargine (Lantus Syringe) 20 unit BID SQ Last administered on 02/28/21at 21:06; Start 02/28/21 at 10:00; Stop 03/01/21 at 14:18; Status DC Dextrose (Dextrose 50%-Water Syringe) 12.5 gm PRN Q15MIN PRN IV SEE COMMENTS Last administered on 03/01/21at 12:55; Start 03/01/21 at 13:00 Insulin Glargine (Lantus Syringe) 15 unit QHS SQ Last administered on 03/05/21at 21:26; Start 03/01/21 at 21:00; Stop 03/06/21 at 07:17; Status DC Nystatin (Nystop) 1 reji BID TP Last administered on 03/16/21at 09:27; Start at 21:00 Vancomycin HCl 1 gm/Sodium Chloride 250 ml @ 250 mls/hr Q12H IV ; Start 03/04/21 at 20:00; Status UNV Vancomycin HCl 2 gm/Sodium Chloride 500 ml @ 250 mls/hr 1X ONCE IV Last administered on 03/04/21at 19:26; Start 03/04/21 at 19:00; Stop 03/04/21 at 20:59; Status DC Vancomycin HCl (Vanco Per Pharmacy) 1 each PRN DAILY PRN MC SEE COMMENTS Last administered on 03/04/21at 19:47; Start 03/04/21 at 18:30; Stop 03/05/21 at 08:59; Status DC Vancomycin HCl 1.5 gm/Sodium Chloride 500 ml @ 250 mls/hr Q12H IV ; Start 03/05/21 at 07:30; Stop 03/05/21 at 08:58; Status DC Vancomycin HCl (Vancomycin Trough Level) 1 each 1X ONCE MC ; Start 03/06/21 at 07:00; Stop 03/06/21 at 07:01; Status Cancel Linezolid (Zyvox) 600 mg BID PO Last administered on 03/11/21at 20:33; Start 03/05/21 at 09:00; Stop 03/12/21 at 07:00; Status DC Insulin Glargine (Lantus Syringe) 15 unit BID SQ ; Start 03/06/21 at 09:00; Stop 03/06/21 at 07:25; Status DC Insulin Glargine (Lantus Syringe) 5 unit BID SQ Last administered on 03/16/21at 09:27; Start 03/06/21 at 09:00 Norepinephrine Bitartrate 8 mg/ Dextrose 258 ml @ 21.711 mls/ hr CONT PRN IV PER PROTOCOL Last administered on 03/15/21at 09:30; Start 03/06/21 at 13:45 Vecuronium Victor (Norcuron Bolus) 6 mg PRN Q2HRS PRN IV VENTILATOR COMPLIANCE Last administered on 03/16/21at 10:16; Start 03/06/21 at 14:30 Sodium Chloride 1,000 ml @ 1,000 mls/hr 1X ONCE IV Last administered on 03/06/21at 16:00; Start 03/06/21 at 16:00; Stop 03/06/21 at 19:16; Status DC Sodium Chloride 1,000 ml @ 1,000 mls/hr 1X ONCE IV Last administered on 03/06/21at 20:37; Start 03/06/21 at 19:15; Stop 03/06/21 at 20:14; Status DC Piperacillin Sod/ Tazobactam Sod 2.25 gm/Sodium Chloride 50 ml @ 100 mls/hr Q8HRS IV Last administered on 03/16/21at 06:09; Start 03/07/21 at 14:00 Fluconazole/ Sodium Chloride 100 ml @ 100 mls/hr Q24H IV Last administered on 03/16/21at 08:29; Start 03/07/21 at 09:00 Lidocaine HCl (Buffered Lidocaine 1%) 6 ml 1X ONCE INJ Last administered on 03/07/21at 14:10; Start 03/07/21 at 13:15; Stop 03/07/21 at 13:16; Status DC Lidocaine HCl (Buffered Lidocaine 1%) 3 ml STK-MED ONCE .ROUTE ; Start 03/07/21 at 13:25; Stop 03/07/21 at 13:25; Status DC Info (PHARMACY MONITORING -- do not chart) 1 each PRN DAILY PRN MC SEE COMMENTS; Start 03/07/21 at 20:45; Stop 03/10/21 at 10:23; Status DC Enoxaparin Sodium (Lovenox 30mg Syringe) 30 mg Q24H SQ Last administered on 03/12/21at 09:04; Start 03/08/21 at 09:00; Stop 03/12/21 at 15:38; Status DC Famotidine (Pepcid Vial) 20 mg DAILY IVP Last administered on 03/16/21at 09:25; Start 03/10/21 at 09:00 Sodium Chloride 1,000 ml @ 1,000 mls/hr Q1H PRN IV hypotension; Start 03/09/21 at 18:15; Stop 03/10/21 at 00:14; Status DC Albumin Human 200 ml @ 200 mls/hr 1X PRN PRN IV Hypotension Last administered on 03/09/21at 19:40; Start 03/09/21 at 18:15; Stop 03/10/21 at 00:14; Status DC Sodium Chloride 1,000 ml @ 400 mls/hr Q2H30M PRN IV PATENCY; Start 03/09/21 at 18:15; Stop 03/10/21 at 06:14; Status DC Info (PHARMACY MONITORING -- do not chart) 1 each PRN DAILY PRN MC SEE COMMENTS; Start 03/09/21 at 18:15; Stop 03/10/21 at 10:23; Status DC Info (PHARMACY MONITORING -- do not chart) 1 each PRN DAILY PRN MC SEE COMMENTS; Start 03/09/21 at 18:15; Status Cancel Vitamin A/Vitamin D (Vitamin A & D Ointment) 1 reji PRN Q1HR PRN TP SKIN PROTECTION Last administered on 03/13/21at 09:14; Start 03/10/21 at 01:45 Sodium Chloride 1,000 ml @ 1,000 mls/hr Q1H PRN IV hypotension; Start 03/11/21 at 08:15; Stop 03/11/21 at 14:14; Status DC Albumin Human 200 ml @ 200 mls/hr 1X PRN PRN IV Hypotension; Start 03/11/21 at 08:15; Stop 03/11/21 at 14:14; Status DC Sodium Chloride (Normal Saline Flush) 10 ml 1X PRN PRN IV AP catheter pack; Start 03/11/21 at 08:15; Stop 03/12/21 at 08:14; Status DC Sodium Chloride (Normal Saline Flush) 10 ml 1X PRN PRN IV OFFICE AIDE catheter pack; Start 03/11/21 at 08:15; Stop 03/12/21 at 08:14; Status DC Sodium Chloride 1,000 ml @ 400 mls/hr Q2H30M PRN IV PATENCY; Start 03/11/21 at 08:15; Stop 03/11/21 at 20:14; Status DC Info (PHARMACY MONITORING -- do not chart) 1 each PRN DAILY PRN MC SEE COMMENTS; Start 03/11/21 at 08:15; Status UNV Info (PHARMACY MONITORING -- do not chart) 1 each PRN DAILY PRN MC SEE COMMENTS; Start 03/11/21 at 08:15; Status Cancel Heparin Sodium (Porcine) (Heparin Sodium) 5,000 unit Q8HRS SQ Last administered on 03/16/21at 06:09; Start 03/13/21 at 06:00 Multivitamins/ Minerals Therapeutic (Centrum Multivit-Mineral Liq) 5 ml DAILY PEG Last administered on 03/16/21at 09:25; Start 03/14/21 at 09:00 Info (PHARMACY MONITORING -- do not chart) 1 each PRN DAILY PRN MC SEE COMMENTS; Start 03/13/21 at 17:00 Piperacillin Sod/ Tazobactam Sod 3.375 gm/Sodium Chloride 50 ml @ 100 mls/hr Q6HRS IV ; Start 03/14/21 at 18:00; Status Cancel Fentanyl Citrate (Fentanyl 2ml Vial) 25 mcg PRN Q5MIN PRN IVP MILD PAIN 1-3; Start 03/17/21 at 06:00; Stop 03/17/21 at 19:00 Fentanyl Citrate (Fentanyl 2ml Vial) 50 mcg PRN Q5MIN PRN IVP MODERATE PAIN 4- 6; Start 03/17/21 at 06:00; Stop 03/17/21 at 19:00 Morphine Sulfate (Morphine Sulfate) 1 mg PRN Q10MIN PRN IVP SEVERE PAIN 7-10; Start 03/17/21 at 06:00; Stop 03/17/21 at 19:00 Ringer's Solution 1,000 ml @ 30 mls/hr Q24H IV ; Start 03/17/21 at 06:00; Stop 03/17/21 at 17:59 Hydromorphone HCl (Dilaudid) 0.5 mg PRN Q10MIN PRN IVP SEVERE PAIN 7-10, 2nd CHOICE; Start 03/17/21 at 06:00; Stop 03/17/21 at 19:00 Fentanyl Citrate 55 ml @ 0 mls/hr CONT PRN IV SEE PROTOCOL Last administered on 03/15/21at 22:03; Start 03/15/21 at 16:30 Fentanyl Citrate 55 ml @ 2 mls/hr CONT PRN IV SEE PROTOCOL; Start 03/15/21 at 21:45; Stop 03/15/21 at 21:34; Status DC Linezolid/Dextrose 300 ml @ 300 mls/hr Q12HR IV Last administered on 03/16/21at 09:31; Start 03/16/21 at 10:00 Active Scripts Active Reported Novolog Flexpen (Insulin Aspart) 100 Unit/1 Ml Insuln.pen 3-7 SQ TIDACHC Lisinopril 5 Mg Tablet 1 Tab PO DAILY Lantus Solostar (Insulin Glargine,Hum.rec.anlog) 100 Unit/1 Ml Insuln.pen 5 Unit SQ QHS Atorvastatin Calcium 40 Mg Tablet 40 Mg PO HS Vitals/I & O Vital Sign - Last 24 Hours 03/15/21 03/15/21 03/15/21 03/15/21 12:50 13:00 14:00 15:00 Pulse 64 64 68 Resp 24 24 24 B/P (MAP) 150/75 (100) 134/70 (91) 148/74 (98) Pulse Ox 96 98 97 97 O2 Delivery Ventilator Ventilator Ventilator Ventilator 03/15/21 03/15/21 03/15/21 03/15/21 15:37 16:00 16:00 16:08 Temp 99.6 99.6 Pulse 64 Resp 24 B/P (MAP) 112/61 (78) Pulse Ox 98 98 98 O2 Delivery Ventilator Ventilator Mechanical Ventilator Ventilator O2 Flow Rate 50.0 03/15/21 03/15/21 03/15/21 03/15/21 17:00 18:00 19:00 20:00 Pulse 70 66 74 Resp 24 24 24 B/P (MAP) 157/84 (108) 144/77 (99) 127/67 (87) Pulse Ox 98 97 100 O2 Delivery Ventilator Ventilator Ventilator Mechanical Ventilator 03/15/21 03/15/21 03/15/21 03/15/21 20:00 20:00 21:00 22:00 Temp 99.6 99.6 Pulse 66 68 88 Resp 24 24 24 B/P (MAP) 101/56 (71) 110/55 (73) 105/58 (74) Pulse Ox 99 100 100 96 O2 Delivery Ventilator Ventilator Ventilator Ventilator 03/15/21 03/15/21 03/16/21 03/16/21 23:00 23:00 00:00 00:00 Temp 100.6 100.6 Pulse 101 84 Resp 24 24 B/P (MAP) 126/90 (102) 114/70 (85) Pulse Ox 97 97 98 O2 Delivery Ventilator Ventilator Ventilator Mechanical Ventilator 03/16/21 03/16/21 03/16/21 03/16/21 01:00 01:50 02:00 03:00 Pulse 78 69 68 Resp 24 24 24 B/P (MAP) 91/62 (72) 91/63 (72) 92/57 (69) Pulse Ox 98 99 99 99 O2 Delivery Ventilator Ventilator Ventilator Ventilator 03/16/21 03/16/21 03/16/21 03/16/21 04:00 04:00 04:45 05:00 Temp 100.3 100.3 Pulse 69 72 Resp 24 24 B/P (MAP) 96/63 (74) 101/62 (75) Pulse Ox 100 99 100 O2 Delivery Ventilator Mechanical Ventilator Ventilator Ventilator 03/16/21 03/16/21 03/16/21 03/16/21 06:00 07:00 08:00 08:00 Temp 100.1 100.1 Pulse 68 68 67 Resp 24 24 24 B/P (MAP) 92/54 (67) 103/62 (76) 101/59 (73) Pulse Ox 99 100 99 O2 Delivery Ventilator Ventilator Mechanical Ventilator Ventilator 03/16/21 03/16/21 03/16/21 03/16/21 08:09 09:00 09:20 10:09 Pulse 68 65 Resp 24 24 B/P (MAP) 105/64 (78) 106/68 (81) Pulse Ox 99 99 99 99 O2 Delivery Ventilator Ventilator Ventilator Ventilator 03/16/21 03/16/21 11:00 11:18 Pulse 66 Resp 24 B/P (MAP) 176/88 (117) Pulse Ox 98 97 O2 Delivery Ventilator Ventilator Intake and Output 03/15/21 03/15/21 03/16/21 15:00 23:00 07:00 Intake Total 650 ml 2330.3 ml 2080.3 ml Output Total 0 ml 60 ml 7 ml Balance 650 ml 2270.3 ml 2073.3 ml Justifications for Admission Other Justification GERALD SCRUGGS MD Mar 16, 2021 12:07
[2021-03-16] MEDS ORDERED: 0.9 % SODIUM CHLORIDE 10 ML DISP.SYRIN. IV PRN ×2 (12:45)
[2021-03-16] MEDS ORDERED: IV NORMAL SALINE 1000ML BAG 1,000 ML IV PRN ×2 (12:45)
[2021-03-16] MEDS ORDERED: ALBUMIN HUMAN 25% 200 ML IV PRN (12:45)
[2021-03-16] MEDS ORDERED: DIALYSIS PATIENT. MC PRN ×2 (12:45)
--- NOTE | 2021-03-16 14:27 | PDOC ---
[facility] [facility] PROGRESS NOTE Date of Service DOS: DATE: 03/16/21 TIME: 14:13 Chief Complaint Chief Complaint CC: Covid-19 DKA Hypotension Nausea Vomiting Combined metabolic and respiratory acidosis Acute electrolyte derangementhyponatremia, hypochloremia due to volume depletion Hyperglycemia BOB Erythrocytosis Candiduria Sacral decubitus ulcer History of Present Illness History of Present Illness Ms Borges is a 46 year old female who presented with nausea/vomiting since 7 AM 02/06/2021 in the morning. Patient stated that her recently tested positive for Covid. She states that he "coughed in my face because he thought it was funny." She reports subjective fevers and chills and nausea/vomiting. Denies sore throat, cough, shortness of breath. No chest pain. Does have some upper abdominal discomfort after vomiting, that she attributes to muscular strain. She was not vaccinated for Covid. 02/08: No acute events overnight. Patient seen and examined bedside and resting comfortably. Continues to complain of nausea not able to tolerate any diet at this time. Saturating 98% on room air. Patient's chart, labs, images were reviewed and discussed with RN 02/09: Afebrile, currently breathing on room air. Still with complaints of nausea and vomiting x3 today. States that she has history of similar symptoms that have been mildly improved with IV Dilaudid. 02/10: Patient febrile today with T-max 102.2 F. She still admits to nausea, denies any further vomiting. We will continue to provide supportive care and monitor for any recurrent fevers overnight. Patient continues to improve may discharge tomorrow to continue self-isolation. 02/11: Febrile overnight, T-max 102.3 F. She did become hypoxic overnight, currently breathing on 4 L nasal cannula. Also admits to associated vomiting or diarrhea overnight. Discussed with RN, will initiate remdesivir and closely monitor LFTs. IV Decadron, and prophylactic antibiotics. 02/12: Low-grade fever overnight, T-max 99.7. Currently breathing on room air. Will discontinue remdesivir, steroids, and antibiotics; will observe overnight. Still with complaints of vomiting x1 and diarrhea. We will continue to provide supportive care and hope to discharge in the next day or so. 02/13: Afebrile. Still complains of intermittent diarrhea. At the time of my evaluation she was breathing on 6 L nasal cannula; this is somewhat misleading as patient states that she did not feel short of breath but was placed on 6 L by nursing staff overnight. 02/14: Afebrile, currently breathing on 8 L nasal cannula. There has been some misleading documentation, chart oxygen this patient is requiring. Discussed with RN, will resume remdesivir to complete total of 5 days. Continue to monitor LFTs. Will add steroids, Rocephin, and azithromycin. 02/15: Afebrile. Became much more hypoxic overnight, requiring BiPAP. At the time of my evaluation she is still breathing on BiPAP. Consultation was placed to pulmonology. Had discussion with Dr. Myrick about initiating Tocilizumab 02/16: No acute events overnight. Patient becoming more hypoxic saturating 94% and requiring BiPAP. Patient will be transferred to the ICU at this time. For worsening clinical status. Discussed with pulmonary. Patient's chart, labs, images were reviewed and discussed with RN 02/17: Transferred to ICU yesterday afternoon. Seen and examined at bedside she remains on 100% FiO2 on BiPAP. Respirations do appear somewhat labored. Susp ect intubation may be impending. We will closely monitor. Increase lisinopril to 20 today. 02/18: Patient required intubation yesterday afternoon. Saw and examined this morning. She is intubated and sedated. Increase insulin today. Covid protocol ordered. Wean as tolerated. Plan of care discussed with bedside nurse. 02/19: Bedside. She remains intubated and sedated. Continue Covid protocol. Wean oxygen sedation as tolerated. Pulmonary following. Plan of care discussed with bedside RN. 02/20: Patient seen and examined at bedside. She remains intubated and sedated. No major clinical changes. Continue current treatment. Pulmonary following. Plan of care discussed with bedside RN. 02/21: Patient seen and examined at bedside. Remains intubated and sedated date and admission clinical changes. Increase free water flushes today due to hypernatremia. Plan of care discussed with bedside nurse. 02/22: Patient seen and examined at bedside. O2 requirement actually improving, although remains intubated. Possible SBT in the coming days. Hypernatremia improving. Plan of care discussed bedside RN. 02/23: Patient remains in ICU on ventilator with FiO2 100%, PEEP 7. Repeat chest x-ray yesterday showed diffuse bilateral pulmonary opacities with no interval improvement. Will discontinue Rocephin and initiate Zosyn. We will continue IV steroids for a full 10-day course 02/24: Afebrile. On vent with FiO2 40%, PEEP 6. Her Coreg has been held due to persistent bradycardia. No documented history of systolic heart failure or previous echocardiogram. Will need to obtain echocardiogram prior to discharge. Continue IV steroids and antibiotics. 02/25: Afebrile. Remains ventilated with FiO2 45%, PEEP 6. Chest x-ray today showed slight improvement of the pulmonary infiltrates, no pneumothorax. Completed 10-day course of IV Decadron. Will initiate slow Solu-Medrol taper. Continue IV Zosyn. Continue supportive care. 02/26: Afebrile. On vent with FiO2 45%, PEEP 6. Completed 10 days of IV Decadron. Will continue IV Zosyn. Continue supportive care. Critical care time 30 minutes spent reviewing charts, reviewing imaging, reviewing labs, discussion with RN. 02/27: Afebrile. On vent with FiO2 45%, PEEP 6. Completed 10 days of steroids and completed remdesivir. Continue with IV Zosyn. CPAP trial yesterday. Continue NG tube and supportive care. 02/28:. Patient remains on vent with FiO2 40%, PEEP 5. Afebrile. Completed steroids and remdesivir. Some noted hypoglycemia overnight, will de-escalate basal insulin. Continue IV Zosyn. Ventilator management per pulmonology. Continue NG tube and supportive care. 03/01: On vent with FiO2 40%, PEEP 5. Afebrile. Completed steroids and remdesivir. Blood glucose well controlled. Continue empiric antibiotics with Zosyn. Ventilator management per pulmonology. Continue NG tube and supportive care. 03/02: No acute events overnight. Patient hypotensive the morning due to oversedation. Will wean off sedation and keep antihypertensive medications on board. Currently saturating 100% on vent settings of 18/450/40/5. Will attempt spontaneous breathing trial today to see how patient does. 03/03: No acute events overnight. Patient saturating 98% on vent settings of 18/450/40/5. Will defer spontaneous breathing trials to pulmonary at this time. Patient's chart, labs, images were reviewed and discussed with RN 03/04: No acute events overnight. Patient saturating 9 9% on vent settings of 18/450/30/5. Patient currently is unable to tolerate weaning. Per pulmonary. Patient's chart, labs, images were reviewed and discussed with RN 8: No acute events overnight. Patient is saturating 97% on vent settings of 18/450/55/5. Her FiO2 needs to be increased due to abnormal ABG with 7.3 /58/24. Patient's chart, labs, images were reviewed and discussed with RN 8: No acute events overnight. Patient saturating 94% on vent settings of 18/450/55/5. Chest x-ray showing increase in pulmonary infiltrates. Wound care is consulted for decubitus ulcer patient's chart, labs, images were reviewed and discussed with RN 8: No acute events overnight. Patient saturating 94% on vent settings of 20/450/70/8. Patient now heading into renal failure with her creatinine bumped up from 1.5-4.2. Decreased urine output. Plan for hemodialysis today and temporary catheter placement and nephrology is consulted. 03/08: No acute events overnight. Patient did have a nausea vomiting episode and tube feeds were held. KUB repeat shows NG tube still in the stomach. Will resume tube feeds at trickle and advance to goal today. Will start hemodialysis soon. 03/09: Seen on vent 20/450/60%/8. ABG 7.2 WBC 11.4, Hb 7.4, platelets 188, NA 131, K4.9, BUN 48, CR 51, glucose 199, phosphorus 7.9, mag 2.2, AST 265 ALT 219, albumin 1.1. Chest radiograph appears unchanged from prior. Dialysis x1 today 03/10: Afebrile. Seen on vent, 20/450/60/7 with ABG 7.3 . Tolerated dialysis well on 03/09. LFTs similar. 03/11: Afebrile. Seen on vent, sedated. Still requiring Levophed for BP support. WBC 16.7, Hb 8.1, NA 130, ABG 7.3 on 55% FiO2 PEEP 6. On Zosyn and Zyvox Diflucan. Dialysis today 03/12: Afebrile. Still requiring Levophed for BP support sedated with Versed febrile Precedex. WBC 16.1, Hb 8.5, platelets 185, NA 133. Trach plan tentatively 03/17. O2 saturations 93% on 50% FiO2 PEEP 6. ABG 7.38/35/79 On Zosyn and Zyvox Diflucan. 03/13: Afebrile. Still on Levophed for BP support lightly sedated. 7./ on 45% FiO2. Plan for dialysis today. On Zosyn and Zyvox Diflucan. More swollen today. 03/14: Afebrile. Weaning down off Levophed. WBC 14.9 NA 132. O2 saturations 92% on 45% FiO2 PEEP 5. Afebrile. O2 saturations 91% on FiO2 45% PEEP 6. Continued on Zosyn and Zyvox Diflucan. Tentative trach planned 03/17/2021 CC time 31 minutes 03/16/21: Patient seen and examined in ICU. Periorbital as well as upper and lower extremity edema noted. OG feed running at 30cc/hr. Still on vent on pressure control with a rate of 24 with 45% FiO2. Patient has rectal bag. Currently she has 98% O2 sat. Currently sedated with Dexmedetomidine, Propofol, Versed, and Fentanyl. Discussed with RN. Chart reviewed. Vitals/I&O Vitals/I&O: Vital Signs Date Time Temp Pulse Resp B/P (MAP) Pulse Ox O2 Delivery O2 Flow Rate FiO2 03/16/21 12:00 98.8 68 24 158/80 (106) 98 Ventilator 98.8 03/15/21 16:08 50.0 I & O 03/15/21 03/15/21 03/16/21 15:00 23:00 07:00 Intake Total 650 ml 2330.3 ml 2080.3 ml Output Total 0 ml 60 ml 7 ml Balance 650 ml 2270.3 ml 2073.3 ml Physical Exam Physical Exam: GENERAL: Intubated and sedated. HEENT: Normocephalic, atraumatic. Anicteric. Bilateral periorbital edema. Neck right IJ HDC clean LUNGS: Rhonchi. HEART: S1, S2. No murmurs. ABDOMEN: Obese, soft. Bowel sounds present. Nontender, nondistended. GENITOURINARY: Kern and fecal tube in place. EXTREMITIES: Edema present no cyanosis. CENTRAL NERVOUS SYSTEM: Intubated. PSYCHIATRIC: Unable to assess. Derm has pressure wounds wound pictures noted in chart. Generalized rash, PICC line , right IJ HDC clean General: Other (SEDATED) Heart: Regular rate, Normal S1, Normal S2, No murmurs, Gallops Lungs: Clear Abdomen: Normal bowel sounds, Soft, No tenderness, No hepatosplenomegaly, No masses Extremities: Other (ANASARCA) Skin: No rashes, No significant lesion Labs Labs: Laboratory Tests Test 03/15/21 18:08 03/16/21 06:05 03/16/21 06:10 03/16/21 08:45 Glucose (Fingerstick) 154 mg/dL (70-99) 176 mg/dL (70-99) Sodium Level 125 mmol/L (136-145) Potassium Level 4.2 mmol/L (3.5-5.1) Chloride Level 90 mmol/L (98-107) Carbon Dioxide Level 23 mmol/L (21-32) Anion Gap 12 (6-14) Blood Urea Nitrogen 43 mg/dL (7-20) Creatinine 5.8 mg/dL (0.6-1.0) Estimated GFR (Cockcroft-Gault) 7.9 BUN/Creatinine Ratio 7 (6-20) Glucose Level 181 mg/dL (70-99) Calcium Level 8.1 mg/dL (8.5-10.1) Total Bilirubin 0.5 mg/dL (0.2-1.0) Aspartate Amino Transf (AST/SGOT) 35 U/L (15-37) Alanine Aminotransferase (ALT/SGPT) 50 U/L (14-59) Alkaline Phosphatase 457 U/L (46-116) Total Protein 6.4 g/dL (6.4-8.2) Albumin 1.3 g/dL (3.4-5.0) Albumin/Globulin Ratio 0.3 (1.0-1.7) O2 Saturation 94 % (92-99) Arterial Blood pH 7.31 (7.35-7.45) Arterial Blood pCO2 at Patient Temp 36 mmHg (35-46) Arterial Blood pO2 at Patient Temp 82 mmHg (75-108) Arterial Blood HCO3 18 mmol/L (21-28) Arterial Blood Base Excess -8 mmol/L (-3-3) FiO2 45 Test 03/16/21 11:59 Glucose (Fingerstick) 237 mg/dL (70-99) Review of Systems Review of Systems: GI: no nausea. no vomiting. Eyes: no changes in vision. no blurry vision. Assessment and Plan Assessmemt and Plan Problems Medical Problems: (1) Ketoacidosis Status: Acute Covid-19 DKA Hypotension Nausea Vomiting Combined metabolic and respiratory acidosis Acute electrolyte derangementhyponatremia, hypochloremia due to volume depletion Hyperglycemia BOB Erythrocytosis Candiduria Sacral decubitus ulcer Plan: 1. ICU monitoring 2. Vent weaning 3. Trying to titrate off Levophed 4. Continue OG feeding 5. Continue rectal bag 6. Continue sedation on Dexmedetomidine, Propofol, Versed, and Fentanyl 7. Trend labs 8. DVT prophylaxis 9. Full code 10. Appreciate subspecialist input 11. Prognosis guarded CC time 34-minute Comment Review of Relevant I have reviewed the following items mazin (where applicable) has been applied. Medications: Current Medications Medications (Trade) Dose Ordered Sig/Pepe Route PRN Reason Start Time Stop Time Status Last Admin Dose Admin Fentanyl Citrate 55 ml @ 0 mls/hr CONT PRN IV SEE PROTOCOL 03/15/21 16:30 03/15/21 22:03 Linezolid/Dextrose 300 ml @ 300 mls/hr Q12HR IV 03/16/21 10:00 03/16/21 09:31 Justifications for Admission Other Justification DIANELYS BLACKMON III DO Mar 16, 2021 14:27
[2021-03-16] MEDS: ATORVASTATIN CALCIUM 40 MG TABLET. PO SCH (21:09)
[2021-03-16] MEDS: fentaNYL HIGH DOSE PCA 55 ML IV PRN (22:35)
[2021-03-17] VITALS (26 sets, daily range): BP systolic 83–139; BP diastolic 44–83
[2021-03-17] MEDS: PROPOFOL 100 ML IV PRN ×6 (00:13→23:20)
[2021-03-17] MEDS: DEXMEDETOMIDINE 400 MCG in IV NORMAL SALINE 100ML 96 ML IV PRN ×7 (02:56→23:16)
[2021-03-17] MEDS: HEPARIN for SUB-Q USE 5,000 UNIT/ML VIAL. SQ SCH ×3 (04:39→21:43)
[2021-03-17] MEDS: MIDAZOLAM 100mg/100ml NS BAG 100 ML IV PRN ×3 (05:13→23:17)
[2021-03-17] MEDS: INSULIN LISPRO 300 UNITS/3 ML VIAL. SQ SCH ×5 (05:58→23:52)
[2021-03-17] MEDS: PIPERACILLIN/TAZOBACTAM 2.25 GM in IV NORMAL SALINE 50ML 50 ML IV SCH (05:58)
[2021-03-17] MEDS ORDERED: HYDROmorphone 2 MG/ML VIAL IVP PRN (06:00)
[2021-03-17] MEDS ORDERED: MORPHINE SULFATE 2 MG/ML INJ. IVP PRN (06:00)
[2021-03-17] MEDS ORDERED: IV RINGERS,LACTATED 1000ML 1,000 ML IV SCH (06:00)
[2021-03-17] MEDS ORDERED: fentaNYL PF VIAL 100 MCG/2 ML VIAL IVP PRN ×2 (06:00)
[2021-03-17 06:46] LABS: ALBUMIN 1.2 g/dL (3.4-5.0); ALBUMIN/GLOBULIN RATIO 0.2 (1.0-1.7); CALCIUM 7.8 mg/dL (8.5-10.1); CREATININE 4.4 mg/dL (0.6-1.0); GFR 10.8; POTASSIUM 3.8 mmol/L (3.5-5.1); TOTAL BILIRUBIN 0.6 mg/dL (0.2-1.0); TOTAL PROTEIN 6.3 g/dL (6.4-8.2)
--- NOTE | 2021-03-17 08:14 | PDOC ---
Infectious Disease Note Subjective Subjective Pt intubated sedated ROS ROS No nausea vomiting diarrhea Vital Sign Vital Signs Vital Signs Date Time Temp Pulse Resp B/P (MAP) Pulse Ox O2 Delivery O2 Flow Rate FiO2 03/17/21 07:00 60 24 124/62 (82) 98 Ventilator 03/17/21 04:00 98.2 98.2 03/16/21 23:09 50.0 Physical Exam PHYSICAL EXAM GENERAL: Intubated and sedated. HEENT: Normocephalic, atraumatic. Anicteric. Bilateral periorbital edema. Neck right IJ HDC clean LUNGS: Rhonchi. HEART: S1, S2. No murmurs. ABDOMEN: Obese, soft. Bowel sounds present. Nontender, nondistended. GENITOURINARY: Kern and fecal tube in place. EXTREMITIES: Edema present no cyanosis. CENTRAL NERVOUS SYSTEM: Intubated. PSYCHIATRIC: Unable to assess. Derm has pressure wounds wound pictures noted in chart. Generalized rash, PICC line , right IJ HDC clean Labs Lab Laboratory Tests Test 03/16/21 08:45 03/16/21 11:59 03/16/21 17:44 03/16/21 21:12 O2 Saturation 94 % (92-99) Arterial Blood pH 7.31 (7.35-7.45) Arterial Blood pCO2 at Patient Temp 36 mmHg (35-46) Arterial Blood pO2 at Patient Temp 82 mmHg (75-108) Arterial Blood HCO3 18 mmol/L (21-28) Arterial Blood Base Excess -8 mmol/L (-3-3) FiO2 45 Glucose (Fingerstick) 237 mg/dL (70-99) 118 mg/dL (70-99) 154 mg/dL (70-99) Test 03/17/21 00:10 03/17/21 05:57 03/17/21 06:20 Glucose (Fingerstick) 206 mg/dL (70-99) 185 mg/dL (70-99) Sodium Level 132 mmol/L (136-145) Potassium Level 3.8 mmol/L (3.5-5.1) Chloride Level 95 mmol/L (98-107) Carbon Dioxide Level 25 mmol/L (21-32) Anion Gap 12 (6-14) Blood Urea Nitrogen 30 mg/dL (7-20) Creatinine 4.4 mg/dL (0.6-1.0) Estimated GFR (Cockcroft-Gault) 10.8 BUN/Creatinine Ratio 7 (6-20) Glucose Level 193 mg/dL (70-99) Calcium Level 7.8 mg/dL (8.5-10.1) Total Bilirubin 0.6 mg/dL (0.2-1.0) Aspartate Amino Transf (AST/SGOT) 37 U/L (15-37) Alanine Aminotransferase (ALT/SGPT) 39 U/L (14-59) Alkaline Phosphatase 490 U/L (46-116) Total Protein 6.3 g/dL (6.4-8.2) Albumin 1.2 g/dL (3.4-5.0) Albumin/Globulin Ratio 0.2 (1.0-1.7) Triglycerides Level 404 mg/dL (0-150) Micro Microbiology 03/04/21 Gram Stain Evaluation - Final, Complete 03/04/21 Respiratory Culture - Final, Complete 03/04/21 Urine Culture - Final, Complete 03/04/21 Blood Culture - Preliminary, Resulted NO GROWTH AFTER 4 DAYS Objective Assessment 1. Febrile illness. Improved 2. COVID-19 infection present on date of admission, 02/06/2021. Status post remdesivir, dexamethasone. 3. Acute hypoxic respiratory failure, status post intubation. Trach cultures positive for [place] albicans 4. Diabetes. 5. Diarrhea. 6. Hypertension. 7. Hyperlipidemia. 8. Anemia. 9. BOB on HD 10.UC [place], ua neg Plan Plan of Care Continue Zyvox,, continue Zosyn and Diflucan Follow-up lab ,cultures, C. diff PCR negative Kern changed per team Wound care per wound treatment Offload Continue supportive care. Critically ill. Prognosis guarded. Panculture Prognosis poor D/W BLANCA CURIEL MD Mar 17, 2021 08:14
--- NOTE | 2021-03-17 08:26 | PDOC ---
PULMONARY PROGRESS NOTES DATE: 03/17/21 TIME: 08:26 Subjective Patient continues to be on pressure control, 45% 6 of PEEP Requiring norepinephrine Underwent hemodialysis yesterday Vitals Vital Signs Date Time Temp Pulse Resp B/P (MAP) Pulse Ox O2 Delivery O2 Flow Rate FiO2 03/17/21 07:00 60 24 124/62 (82) 98 Ventilator 03/17/21 04:00 98.2 98.2 03/16/21 23:09 50.0 Lungs: Clear Cardiovascular: S1 Abdomen: Soft Skin: Warm Labs Laboratory Tests Test 03/15/21 09:30 03/15/21 12:23 03/15/21 18:08 03/16/21 06:05 O2 Saturation 92 % (92-99) Arterial Blood pH 7.33 (7.35-7.45) Arterial Blood pCO2 at Patient Temp 40 mmHg (35-46) Arterial Blood pO2 at Patient Temp 69 mmHg (75-108) Arterial Blood HCO3 21 mmol/L (21-28) Arterial Blood Base Excess -5 mmol/L (-3-3) FiO2 45% vent Glucose (Fingerstick) 192 mg/dL (70-99) 154 mg/dL (70-99) 176 mg/dL (70-99) Test 03/16/21 06:10 03/16/21 08:45 03/16/21 11:59 03/16/21 17:44 Sodium Level 125 mmol/L (136-145) Potassium Level 4.2 mmol/L (3.5-5.1) Chloride Level 90 mmol/L (98-107) Carbon Dioxide Level 23 mmol/L (21-32) Anion Gap 12 (6-14) Blood Urea Nitrogen 43 mg/dL (7-20) Creatinine 5.8 mg/dL (0.6-1.0) Estimated GFR (Cockcroft-Gault) 7.9 BUN/Creatinine Ratio 7 (6-20) Glucose Level 181 mg/dL (70-99) Calcium Level 8.1 mg/dL (8.5-10.1) Total Bilirubin 0.5 mg/dL (0.2-1.0) Aspartate Amino Transf (AST/SGOT) 35 U/L (15-37) Alanine Aminotransferase (ALT/SGPT) 50 U/L (14-59) Alkaline Phosphatase 457 U/L (46-116) Total Protein 6.4 g/dL (6.4-8.2) Albumin 1.3 g/dL (3.4-5.0) Albumin/Globulin Ratio 0.3 (1.0-1.7) O2 Saturation 94 % (92-99) Arterial Blood pH 7.31 (7.35-7.45) Arterial Blood pCO2 at Patient Temp 36 mmHg (35-46) Arterial Blood pO2 at Patient Temp 82 mmHg (75-108) Arterial Blood HCO3 18 mmol/L (21-28) Arterial Blood Base Excess -8 mmol/L (-3-3) FiO2 45 Glucose (Fingerstick) 237 mg/dL (70-99) 118 mg/dL (70-99) Test 03/16/21 21:12 03/17/21 00:10 03/17/21 05:57 03/17/21 06:20 Glucose (Fingerstick) 154 mg/dL (70-99) 206 mg/dL (70-99) 185 mg/dL (70-99) Sodium Level 132 mmol/L (136-145) Potassium Level 3.8 mmol/L (3.5-5.1) Chloride Level 95 mmol/L (98-107) Carbon Dioxide Level 25 mmol/L (21-32) Anion Gap 12 (6-14) Blood Urea Nitrogen 30 mg/dL (7-20) Creatinine 4.4 mg/dL (0.6-1.0) Estimated GFR (Cockcroft-Gault) 10.8 BUN/Creatinine Ratio 7 (6-20) Glucose Level 193 mg/dL (70-99) Calcium Level 7.8 mg/dL (8.5-10.1) Total Bilirubin 0.6 mg/dL (0.2-1.0) Aspartate Amino Transf (AST/SGOT) 37 U/L (15-37) Alanine Aminotransferase (ALT/SGPT) 39 U/L (14-59) Alkaline Phosphatase 490 U/L (46-116) Total Protein 6.3 g/dL (6.4-8.2) Albumin 1.2 g/dL (3.4-5.0) Albumin/Globulin Ratio 0.2 (1.0-1.7) Triglycerides Level 404 mg/dL (0-150) Laboratory Tests Test 03/16/21 08:45 03/16/21 11:59 03/16/21 17:44 03/16/21 21:12 O2 Saturation 94 % (92-99) Arterial Blood pH 7.31 (7.35-7.45) Arterial Blood pCO2 at Patient Temp 36 mmHg (35-46) Arterial Blood pO2 at Patient Temp 82 mmHg (75-108) Arterial Blood HCO3 18 mmol/L (21-28) Arterial Blood Base Excess -8 mmol/L (-3-3) FiO2 45 Glucose (Fingerstick) 237 mg/dL (70-99) 118 mg/dL (70-99) 154 mg/dL (70-99) Test 03/17/21 00:10 03/17/21 05:57 03/17/21 06:20 Glucose (Fingerstick) 206 mg/dL (70-99) 185 mg/dL (70-99) Sodium Level 132 mmol/L (136-145) Potassium Level 3.8 mmol/L (3.5-5.1) Chloride Level 95 mmol/L (98-107) Carbon Dioxide Level 25 mmol/L (21-32) Anion Gap 12 (6-14) Blood Urea Nitrogen 30 mg/dL (7-20) Creatinine 4.4 mg/dL (0.6-1.0) Estimated GFR (Cockcroft-Gault) 10.8 BUN/Creatinine Ratio 7 (6-20) Glucose Level 193 mg/dL (70-99) Calcium Level 7.8 mg/dL (8.5-10.1) Total Bilirubin 0.6 mg/dL (0.2-1.0) Aspartate Amino Transf (AST/SGOT) 37 U/L (15-37) Alanine Aminotransferase (ALT/SGPT) 39 U/L (14-59) Alkaline Phosphatase 490 U/L (46-116) Total Protein 6.3 g/dL (6.4-8.2) Albumin 1.2 g/dL (3.4-5.0) Albumin/Globulin Ratio 0.2 (1.0-1.7) Triglycerides Level 404 mg/dL (0-150) Medications Active Scripts Medications Dose Route/Sig Max Daily Dose Days Date Category Novolog Flexpen (Insulin Aspart) 100 Unit/1 Ml Insuln.pen 3-7 SQ TIDACHC 02/07/21 Reported Lisinopril 5 Mg Tablet 1 Tab PO DAILY 02/07/21 Reported Lantus Solostar (Insulin Glargine,Hum.rec.anlog) 100 Unit/1 Ml Insuln.pen 5 Unit SQ QHS 04/09/15 Reported Atorvastatin Calcium 40 Mg Tablet 40 Mg PO HS 04/09/15 Reported Impression . IMPRESSION: 1. Acute hypoxic respiratory failure secondary to COVID-19 viral pneumonia/acute lung injury and early acute respiratory distress syndrome. S/P intubation 02/17/21 2. Nonsmoker. 3. Abnormal chest x-ray consistent with COVID-19 viral pneumonia.--- 4. Diabetic ketoacidosis 5. Underlying obesity contributing to hypoxia as well. 6. BOB worsening hemodialysis started 03/07 7. Fever, per ID 8. Abnormal chest x-ray with diffuse interstitial infiltrates compatible with viral pneumonia 9. [place] in the sputum is a contamination 10. Septic shock Venous Dopplers lower extremities Impression: No evidence of deep venous thrombosis bilateral lower extremity venous system. Plan . 03/[address] Whitley Continue empiric antibiotics Finish course of remdesivir and dexamethasone Follow wound care Follow chest x-ray Continues to require nor epi, maintain mean of 3 of pressure above 60 Nutritional support DVT GI prophylaxis updated 03/16 Continue antibiotics per ID Hemodialysis today, negative fluid balance Status post remdesivir and dexamethasone Follow wound care input Prognosis poor Unable to titrate off norepinephrine Chest x-ray reviewed ABG noted updated 03/15 Discussed with RN, continue negative fluid balance doing dialysis Titrate off of norepinephrine Follow chest x-ray Tracheotomy next week Long-term prognosis is poor MONTEZ OROPEZA MD Mar 17, 2021 08:26
[2021-03-17] MEDS: DOCUSATE 100 MG/10 ML SOLUTION. PO SCH ×3 (08:42→21:43)
[2021-03-17] MEDS: MULTIVITAMINS,THERAPEUTIC 5 ML ORAL LIQUID. PEG SCH ×2 (08:42→08:49)
[2021-03-17] MEDS: FAMOTIDINE 20 MG/2 ML VIAL IVP SCH (08:42)
[2021-03-17] MEDS: NYSTATIN TOPICAL POWDER 15GM BOTTLE. TP SCH ×2 (08:43→21:44)
[2021-03-17 09:17] LABS: BASE EXCESS ABG -3 mmol/L (-3-3); HCO3 ABG 22 mmol/L (21-28); PCO2 ABG 37 mmHg (35-46); PO2 ABG 82 mmHg (75-108); SAT O2 ABG 95 % (92-99)
[2021-03-17 09:18] LABS: FIO2 ABG 45/VENT
[2021-03-17] MEDS ORDERED: ROCURONIUM 50 MG/5 ML VIAL. ONE ×3 (10:09→11:39)
--- NOTE | 2021-03-17 10:10 | PDOC ---
Date of Service: DATE: 03/17/21 TIME: 10:05 Objective: Objective: RT present. Says going for trach today. INR 1.1 03/13/21. Vital Signs: Vital Signs Date Time Temp Pulse Resp B/P (MAP) Pulse Ox O2 Delivery O2 Flow Rate FiO2 03/17/21 09:00 52 24 97/51 (66) 97 Ventilator 03/17/21 08:00 97.9 97.9 03/16/21 23:09 50.0 Labs: Laboratory Tests Test 03/16/21 11:59 03/16/21 17:44 03/16/21 21:12 03/17/21 00:10 Glucose (Fingerstick) 237 mg/dL 118 mg/dL 154 mg/dL 206 mg/dL Test 03/17/21 05:57 03/17/21 06:20 03/17/21 08:00 Glucose (Fingerstick) 185 mg/dL Sodium Level 132 mmol/L Potassium Level 3.8 mmol/L Chloride Level 95 mmol/L Carbon Dioxide Level 25 mmol/L Anion Gap 12 Blood Urea Nitrogen 30 mg/dL Creatinine 4.4 mg/dL Estimated GFR (Cockcroft-Gault) 10.8 BUN/Creatinine Ratio 7 Glucose Level 193 mg/dL Calcium Level 7.8 mg/dL Total Bilirubin 0.6 mg/dL Aspartate Amino Transf (AST/SGOT) 37 U/L Alanine Aminotransferase (ALT/SGPT) 39 U/L Alkaline Phosphatase 490 U/L Total Protein 6.3 g/dL Albumin 1.2 g/dL Albumin/Globulin Ratio 0.2 Triglycerides Level 404 mg/dL O2 Saturation 95 % Arterial Blood pH 7.39 Arterial Blood pCO2 at Patient Temp 37 mmHg Arterial Blood pO2 at Patient Temp 82 mmHg Arterial Blood HCO3 22 mmol/L Arterial Blood Base Excess -3 mmol/L FiO2 45/vent PE: GEN: intubated LUNGS: diminished/vent HEART: RRR ABD: soft NEURO/PSYCH: sedated A/P: COVID-19 w/ resp and renal failure ACD, elevated Alk Phos -- Plans for trach today, requiring less pressors. Will follow-up re: possible PEG placement. Justicifation of Admission Dx: Justifications for Admission: Justification of Admission Dx: N/A JANELLE MONTENEGRO Mar 17, 2021 10:10
[2021-03-17] MEDS ORDERED: SURGICEL FIBRILLAR 1X2 EACH. ONE (10:47)
[2021-03-17] MEDS ORDERED: BUPIVACAINE-EPI 0.5%-1:200000 MPF 30 ML VIAL. ONE (10:47)
--- NOTE | 2021-03-17 10:54 | PDOC ---
Renal-Progress Notes Subjective Notes Notes NO ACUTE CHANGES History of Present Illness Hx of present illness STILL VENT DEPENDENT Vitals Vitals Vital Signs Date Time Temp Pulse Resp B/P (MAP) Pulse Ox O2 Delivery O2 Flow Rate FiO2 03/17/21 10:00 53 24 100/57 (71) 98 Ventilator 03/17/21 08:00 97.9 97.9 03/16/21 23:09 50.0 Weight Weight [ ] I.O. Intake and Output Intake and Output 03/17/21 07:00 Intake Total 5767 ml Output Total 180 ml Balance 5587 ml IV Total 2950 ml Tube Feeding 2067 ml Other 750 ml Output Urine Total 180 ml Gastric Drainage Total 0 ml Labs Labs Laboratory Tests Test 03/16/21 11:59 03/16/21 17:44 03/16/21 21:12 03/17/21 00:10 Glucose (Fingerstick) 237 mg/dL (70-99) 118 mg/dL (70-99) 154 mg/dL (70-99) 206 mg/dL (70-99) Test 03/17/21 05:57 03/17/21 06:20 03/17/21 08:00 Glucose (Fingerstick) 185 mg/dL (70-99) Sodium Level 132 mmol/L (136-145) Potassium Level 3.8 mmol/L (3.5-5.1) Chloride Level 95 mmol/L (98-107) Carbon Dioxide Level 25 mmol/L (21-32) Anion Gap 12 (6-14) Blood Urea Nitrogen 30 mg/dL (7-20) Creatinine 4.4 mg/dL (0.6-1.0) Estimated GFR (Cockcroft-Gault) 10.8 BUN/Creatinine Ratio 7 (6-20) Glucose Level 193 mg/dL (70-99) Calcium Level 7.8 mg/dL (8.5-10.1) Total Bilirubin 0.6 mg/dL (0.2-1.0) Aspartate Amino Transf (AST/SGOT) 37 U/L (15-37) Alanine Aminotransferase (ALT/SGPT) 39 U/L (14-59) Alkaline Phosphatase 490 U/L (46-116) Total Protein 6.3 g/dL (6.4-8.2) Albumin 1.2 g/dL (3.4-5.0) Albumin/Globulin Ratio 0.2 (1.0-1.7) Triglycerides Level 404 mg/dL (0-150) O2 Saturation 95 % (92-99) Arterial Blood pH 7.39 (7.35-7.45) Arterial Blood pCO2 at Patient Temp 37 mmHg (35-46) Arterial Blood pO2 at Patient Temp 82 mmHg (75-108) Arterial Blood HCO3 22 mmol/L (21-28) Arterial Blood Base Excess -3 mmol/L (-3-3) FiO2 45/vent Micro Micro Microbiology 03/16/21 Blood Culture - Preliminary, Resulted NO GROWTH AFTER 1 DAY 03/04/21 Gram Stain Evaluation - Final, Complete 03/04/21 Respiratory Culture - Final, Complete 03/04/21 Urine Culture - Final, Complete Review of Systems Constitutional: yes: unresponsive Physical Exam General Appearance: no apparent distress Skin: warm Respiratory: decreased breath sounds Heart: S1S2 Abdomen: soft, bowel sounds present Extremities: pulses present Neurology: alert Assessment Assessment IMP [id number] HEMATURIA GLUCOSURIA MET AND RESP ACIDOSIS WITH ACIDEMIA COVID 19 PNEUMONIA ACUTE RESP FAILURE DM II HTN OBESITY ANEMIA GENERALIZED EDEMA LEUCOCYTOSIS PLAN HD TODAY UF TOLERATED-2.0-3.0 LITERS MONITOR FOR RENAL RECOVERY CONTROL BG ANTIBIOTICS ID EVAL AND TX CONT TF WILL AVOID DOYLE DUE TO THROMBOGENIC STATE VENT SUPPORT WILL FOLLOW COLLIN ROLON MD Mar 17, 2021 10:54
[2021-03-17] MEDS ORDERED: PHENYLEPHRINE in 0.9% NACL PF 1 MG/10 ML SYRINGE. IV ONE (10:56)
[2021-03-17] MEDS ORDERED: ePHEDrine PF IN SALINE 50 MG/10 ML SYRINGE. IV ONE (10:56)
--- NOTE | 2021-03-17 11:09 | PDOC ---
SURGICAL PROGRESS NOTE DATE: 03/17/21 TIME: 11:06 Subjective Pre-Op Note 46 yo F with respiratory failure. TO OR for tracheostomy. R/R/B/A d/w pt's on phone. Risks, including, but not limited to: blee ding, infection, damage to surrounding structures, risk of anesthesia. He appears to understand, his questions are answered and he elects to proceed. Vital Signs Vital Signs Date Time Temp Pulse Resp B/P (MAP) Pulse Ox O2 Delivery O2 Flow Rate FiO2 03/17/21 11:00 54 24 99/55 (70) 98 Ventilator 03/17/21 08:00 97.9 97.9 03/16/21 23:09 50.0 I&O Intake and Output 03/17/21 07:00 Intake Total 5767 ml Output Total 180 ml Balance 5587 ml IV Total 2950 ml Tube Feeding 2067 ml Other 750 ml Output Urine Total 180 ml Gastric Drainage Total 0 ml Labs Laboratory Tests Test 03/15/21 12:23 03/15/21 18:08 03/16/21 06:05 03/16/21 06:10 Glucose (Fingerstick) 192 mg/dL (70-99) 154 mg/dL (70-99) 176 mg/dL (70-99) Sodium Level 125 mmol/L (136-145) Potassium Level 4.2 mmol/L (3.5-5.1) Chloride Level 90 mmol/L (98-107) Carbon Dioxide Level 23 mmol/L (21-32) Anion Gap 12 (6-14) Blood Urea Nitrogen 43 mg/dL (7-20) Creatinine 5.8 mg/dL (0.6-1.0) Estimated GFR (Cockcroft-Gault) 7.9 BUN/Creatinine Ratio 7 (6-20) Glucose Level 181 mg/dL (70-99) Calcium Level 8.1 mg/dL (8.5-10.1) Total Bilirubin 0.5 mg/dL (0.2-1.0) Aspartate Amino Transf (AST/SGOT) 35 U/L (15-37) Alanine Aminotransferase (ALT/SGPT) 50 U/L (14-59) Alkaline Phosphatase 457 U/L (46-116) Total Protein 6.4 g/dL (6.4-8.2) Albumin 1.3 g/dL (3.4-5.0) Albumin/Globulin Ratio 0.3 (1.0-1.7) Test 03/16/21 08:45 03/16/21 11:59 03/16/21 17:44 03/16/21 21:12 O2 Saturation 94 % (92-99) Arterial Blood pH 7.31 (7.35-7.45) Arterial Blood pCO2 at Patient Temp 36 mmHg (35-46) Arterial Blood pO2 at Patient Temp 82 mmHg (75-108) Arterial Blood HCO3 18 mmol/L (21-28) Arterial Blood Base Excess -8 mmol/L (-3-3) FiO2 45 Glucose (Fingerstick) 237 mg/dL (70-99) 118 mg/dL (70-99) 154 mg/dL (70-99) Test 03/17/21 00:10 03/17/21 05:57 03/17/21 06:20 03/17/21 08:00 Glucose (Fingerstick) 206 mg/dL (70-99) 185 mg/dL (70-99) Sodium Level 132 mmol/L (136-145) Potassium Level 3.8 mmol/L (3.5-5.1) Chloride Level 95 mmol/L (98-107) Carbon Dioxide Level 25 mmol/L (21-32) Anion Gap 12 (6-14) Blood Urea Nitrogen 30 mg/dL (7-20) Creatinine 4.4 mg/dL (0.6-1.0) Estimated GFR (Cockcroft-Gault) 10.8 BUN/Creatinine Ratio 7 (6-20) Glucose Level 193 mg/dL (70-99) Calcium Level 7.8 mg/dL (8.5-10.1) Total Bilirubin 0.6 mg/dL (0.2-1.0) Aspartate Amino Transf (AST/SGOT) 37 U/L (15-37) Alanine Aminotransferase (ALT/SGPT) 39 U/L (14-59) Alkaline Phosphatase 490 U/L (46-116) Total Protein 6.3 g/dL (6.4-8.2) Albumin 1.2 g/dL (3.4-5.0) Albumin/Globulin Ratio 0.2 (1.0-1.7) Triglycerides Level 404 mg/dL (0-150) O2 Saturation 95 % (92-99) Arterial Blood pH 7.39 (7.35-7.45) Arterial Blood pCO2 at Patient Temp 37 mmHg (35-46) Arterial Blood pO2 at Patient Temp 82 mmHg (75-108) Arterial Blood HCO3 22 mmol/L (21-28) Arterial Blood Base Excess -3 mmol/L (-3-3) FiO2 45/vent Laboratory Tests Test 03/16/21 11:59 03/16/21 17:44 03/16/21 21:12 03/17/21 00:10 Glucose (Fingerstick) 237 mg/dL (70-99) 118 mg/dL (70-99) 154 mg/dL (70-99) 206 mg/dL (70-99) Test 03/17/21 05:57 03/17/21 06:20 03/17/21 08:00 Glucose (Fingerstick) 185 mg/dL (70-99) Sodium Level 132 mmol/L (136-145) Potassium Level 3.8 mmol/L (3.5-5.1) Chloride Level 95 mmol/L (98-107) Carbon Dioxide Level 25 mmol/L (21-32) Anion Gap 12 (6-14) Blood Urea Nitrogen 30 mg/dL (7-20) Creatinine 4.4 mg/dL (0.6-1.0) Estimated GFR (Cockcroft-Gault) 10.8 BUN/Creatinine Ratio 7 (6-20) Glucose Level 193 mg/dL (70-99) Calcium Level 7.8 mg/dL (8.5-10.1) Total Bilirubin 0.6 mg/dL (0.2-1.0) Aspartate Amino Transf (AST/SGOT) 37 U/L (15-37) Alanine Aminotransferase (ALT/SGPT) 39 U/L (14-59) Alkaline Phosphatase 490 U/L (46-116) Total Protein 6.3 g/dL (6.4-8.2) Albumin 1.2 g/dL (3.4-5.0) Albumin/Globulin Ratio 0.2 (1.0-1.7) Triglycerides Level 404 mg/dL (0-150) O2 Saturation 95 % (92-99) Arterial Blood pH 7.39 (7.35-7.45) Arterial Blood pCO2 at Patient Temp 37 mmHg (35-46) Arterial Blood pO2 at Patient Temp 82 mmHg (75-108) Arterial Blood HCO3 22 mmol/L (21-28) Arterial Blood Base Excess -3 mmol/L (-3-3) FiO2 45/vent Problem List Problems Medical Problems: (1) Ketoacidosis Status: Acute Justicifation of Admission Dx: Justifications for Admission: Justification of Admission Dx: N/A DANIEL ACHARYA MD Mar 17, 2021 11:09
[2021-03-17] MEDS ORDERED: ALBUTEROL SULFATE 8GM INHALER. INH ONE (11:29)
--- NOTE | 2021-03-17 11:30 | NUR ---
SS following up with discharge planning. SS reviewed pt chart and discussed with pt RN. Pt is currently on the vent at 45%. COVID19 positive. Pt on Versed, Precedex, Fentanyl, Propofol, and Levophed. Pt getting trach placement today. Self pay. Med Assist following. SS will continue to follow for discharge planning.
[2021-03-17] MEDS ORDERED: SEVOFLURANE 31 TO 60 MINUTES. IH ONE (12:20)
--- NOTE | 2021-03-17 12:44 | PDOC4 ---
OPERATIVE NOTE Date: Date: Mar 17, 2021 Pre-Op Diagnosis: Respiratory failure Post-Op Diagnosis: same Procedure Performed: tracheostomy (specifically XLT cuffed 7) Surgeon: Maico Acharya Anesthesia Type: GETA Blood Loss: 10 Specimans Obtained: none Findings: morbid obesity, prominent thyroid (both making procedure difficult) Complications: none Operative Note: After obtaining informed consent, patient was taken to OR, induced under GETA and prepped in the usual fashion. Incision was made with cautery 2 cm above sternal notch. Subcutaneous tissues, platysma and prominent strap muscle midline divided with cautery. Given obesity difficult to visualize well. 2nd tracheal ring palpated. Using seldinger technique, trachea accessed and air aspirated. Using blue rhino system, tracheotomy dilated. Tracheostomy introduced without difficulty and end tidal C02 detected. Balloon inflated. Patient successfully oxygenated and ventilated via tracheostomy. Surgicel placed around tracheostomy. Tracheostomy secured with 3 0 nylon. Collar placed. Patient tolerated procedure well and sent to ICU in stable condition. All counts correct. Wound class is 3. DANIEL ACHARYA MD Mar 17, 2021 12:44
[2021-03-17] MEDS: INSULIN GLARGINE SYRINGE. SQ SCH ×2 (12:54→21:43)
--- NOTE | 2021-03-17 13:03 | PDOC ---
[facility] PROGRESS NOTE Date of Service DOS: DATE: 03/17/21 TIME: 12:46 Chief Complaint Chief Complaint CC: Covid-19 DKA Hypotension Nausea Vomiting Combined metabolic and respiratory acidosis Acute electrolyte derangementhyponatremia, hypochloremia due to volume depletion Hyperglycemia BOB Erythrocytosis Candiduria Sacral decubitus ulcer History of Present Illness History of Present Illness Ms Borges is a 46 year old female who presented with nausea/vomiting since 7 AM 02/06/2021 in the morning. Patient stated that her recently tested positive for Covid. She states that he "coughed in my face because he thought it was funny." She reports subjective fevers and chills and nausea/vomiting. Denies sore throat, cough, shortness of breath. No chest pain. Does have some upper abdominal discomfort after vomiting, that she attributes to muscular strain. She was not vaccinated for Covid. 02/08: No acute events overnight. Patient seen and examined bedside and resting comfortably. Continues to complain of nausea not able to tolerate any diet at this time. Saturating 98% on room air. Patient's chart, labs, images were reviewed and discussed with RN 02/09: Afebrile, currently breathing on room air. Still with complaints of nausea and vomiting x3 today. States that she has history of similar symptoms that have been mildly improved with IV Dilaudid. 02/10: Patient febrile today with T-max 102.2 F. She still admits to nausea, denies any further vomiting. We will continue to provide supportive care and monitor for any recurrent fevers overnight. Patient continues to improve may discharge tomorrow to continue self-isolation. 02/11: Febrile overnight, T-max 102.3 F. She did become hypoxic overnight, currently breathing on 4 L nasal cannula. Also admits to associated vomiting or diarrhea overnight. Discussed with RN, will initiate remdesivir and closely monitor LFTs. IV Decadron, and prophylactic antibiotics. 02/12: Low-grade fever overnight, T-max 99.7. Currently breathing on room air. Will discontinue remdesivir, steroids, and antibiotics; will observe overnight. Still with complaints of vomiting x1 and diarrhea. We will continue to provide supportive care and hope to discharge in the next day or so. 02/13: Afebrile. Still complains of intermittent diarrhea. At the time of my evaluation she was breathing on 6 L nasal cannula; this is somewhat misleading as patient states that she did not feel short of breath but was placed on 6 L by nursing staff overnight. 02/14: Afebrile, currently breathing on 8 L nasal cannula. There has been some misleading documentation, chart oxygen this patient is requiring. Discussed with RN, will resume remdesivir to complete total of 5 days. Continue to monitor LFTs. Will add steroids, Rocephin, and azithromycin. 02/15: Afebrile. Became much more hypoxic overnight, requiring BiPAP. At the time of my evaluation she is still breathing on BiPAP. Consultation was placed to pulmonology. Had discussion with Dr. Myrick about initiating Tocilizumab 02/16: No acute events overnight. Patient becoming more hypoxic saturating 94% and requiring BiPAP. Patient will be transferred to the ICU at this time. For worsening clinical status. Discussed with pulmonary. Patient's chart, labs, images were reviewed and discussed with RN 02/17: Transferred to ICU yesterday afternoon. Seen and examined at bedside she remains on 100% FiO2 on BiPAP. Respirations do appear somewhat labored. Susp ect intubation may be impending. We will closely monitor. Increase lisinopril to 20 today. 02/18: Patient required intubation yesterday afternoon. Saw and examined this morning. She is intubated and sedated. Increase insulin today. Covid protocol ordered. Wean as tolerated. Plan of care discussed with bedside nurse. 02/19: Bedside. She remains intubated and sedated. Continue Covid protocol. Wean oxygen sedation as tolerated. Pulmonary following. Plan of care discussed with bedside RN. 02/20: Patient seen and examined at bedside. She remains intubated and sedated. No major clinical changes. Continue current treatment. Pulmonary following. Plan of care discussed with bedside RN. 02/21: Patient seen and examined at bedside. Remains intubated and sedated date and admission clinical changes. Increase free water flushes today due to hypernatremia. Plan of care discussed with bedside nurse. 02/22: Patient seen and examined at bedside. O2 requirement actually improving, although remains intubated. Possible SBT in the coming days. Hypernatremia improving. Plan of care discussed bedside RN. 02/23: Patient remains in ICU on ventilator with FiO2 100%, PEEP 7. Repeat chest x-ray yesterday showed diffuse bilateral pulmonary opacities with no interval improvement. Will discontinue Rocephin and initiate Zosyn. We will continue IV steroids for a full 10-day course 02/24: Afebrile. On vent with FiO2 40%, PEEP 6. Her Coreg has been held due to persistent bradycardia. No documented history of systolic heart failure or previous echocardiogram. Will need to obtain echocardiogram prior to discharge. Continue IV steroids and antibiotics. 02/25: Afebrile. Remains ventilated with FiO2 45%, PEEP 6. Chest x-ray today showed slight improvement of the pulmonary infiltrates, no pneumothorax. Completed 10-day course of IV Decadron. Will initiate slow Solu-Medrol taper. Continue IV Zosyn. Continue supportive care. 02/26: Afebrile. On vent with FiO2 45%, PEEP 6. Completed 10 days of IV Decadron. Will continue IV Zosyn. Continue supportive care. Critical care time 30 minutes spent reviewing charts, reviewing imaging, reviewing labs, discussion with RN. 02/27: Afebrile. On vent with FiO2 45%, PEEP 6. Completed 10 days of steroids and completed remdesivir. Continue with IV Zosyn. CPAP trial yesterday. Continue NG tube and supportive care. 02/28:. Patient remains on vent with FiO2 40%, PEEP 5. Afebrile. Completed steroids and remdesivir. Some noted hypoglycemia overnight, will de-escalate basal insulin. Continue IV Zosyn. Ventilator management per pulmonology. Continue NG tube and supportive care. 03/01: On vent with FiO2 40%, PEEP 5. Afebrile. Completed steroids and remdesivir. Blood glucose well controlled. Continue empiric antibiotics with Zosyn. Ventilator management per pulmonology. Continue NG tube and supportive care. 03/02: No acute events overnight. Patient hypotensive the morning due to oversedation. Will wean off sedation and keep antihypertensive medications on board. Currently saturating 100% on vent settings of 18/450/40/5. Will attempt spontaneous breathing trial today to see how patient does. 03/03: No acute events overnight. Patient saturating 98% on vent settings of 18/450/40/5. Will defer spontaneous breathing trials to pulmonary at this time. Patient's chart, labs, images were reviewed and discussed with RN 03/04: No acute events overnight. Patient saturating 9 9% on vent settings of 18/450/30/5. Patient currently is unable to tolerate weaning. Per pulmonary. Patient's chart, labs, images were reviewed and discussed with RN 8: No acute events overnight. Patient is saturating 97% on vent settings of 18/450/55/5. Her FiO2 needs to be increased due to abnormal ABG with 7.3 /58/24. Patient's chart, labs, images were reviewed and discussed with RN 8: No acute events overnight. Patient saturating 94% on vent settings of 18/450/55/5. Chest x-ray showing increase in pulmonary infiltrates. Wound care is consulted for decubitus ulcer patient's chart, labs, images were reviewed and discussed with RN 8: No acute events overnight. Patient saturating 94% on vent settings of 20/450/70/8. Patient now heading into renal failure with her creatinine bumped up from 1.5-4.2. Decreased urine output. Plan for hemodialysis today and temporary catheter placement and nephrology is consulted. 03/08: No acute events overnight. Patient did have a nausea vomiting episode and tube feeds were held. KUB repeat shows NG tube still in the stomach. Will resume tube feeds at trickle and advance to goal today. Will start hemodialysis soon. 03/09: Seen on vent 20/450/60%/8. ABG 7.2 WBC 11.4, Hb 7.4, platelets 188, NA 131, K4.9, BUN 48, CR 51, glucose 199, phosphorus 7.9, mag 2.2, AST 265 ALT 219, albumin 1.1. Chest radiograph appears unchanged from prior. Dialysis x1 today 03/10: Afebrile. Seen on vent, 20/450/60/7 with ABG 7.3 . Tolerated dialysis well on 03/09. LFTs similar. 03/11: Afebrile. Seen on vent, sedated. Still requiring Levophed for BP support. WBC 16.7, Hb 8.1, NA 130, ABG 7.3 on 55% FiO2 PEEP 6. On Zosyn and Zyvox Diflucan. Dialysis today 03/12: Afebrile. Still requiring Levophed for BP support sedated with Versed febrile Precedex. WBC 16.1, Hb 8.5, platelets 185, NA 133. Trach plan tentatively 03/17. O2 saturations 93% on 50% FiO2 PEEP 6. ABG 7.38/35/79 On Zosyn and Zyvox Diflucan. 03/13: Afebrile. Still on Levophed for BP support lightly sedated. 7./ on 45% FiO2. Plan for dialysis today. On Zosyn and Zyvox Diflucan. More swollen today. 03/14: Afebrile. Weaning down off Levophed. WBC 14.9 NA 132. O2 saturations 92% on 45% FiO2 PEEP 5. Afebrile. O2 saturations 91% on FiO2 45% PEEP 6. Continued on Zosyn and Zyvox Diflucan. Tentative trach planned 03/17/2021 CC time 31 minutes 03/16/21: Patient seen and examined in ICU. Periorbital as well as upper and lower extremity edema noted. OG feed running at 30cc/hr. Still on vent on pressure control with a rate of 24 with 45% FiO2. Patient has rectal bag. Currently she has 98% O2 sat. Currently sedated with Dexmedetomidine, Propofol, Versed, and Fentanyl. Discussed with RN. Chart reviewed. 03/17/21: Patient was seen and examined in the ICU today. Periorbital edema as well as abdominal and mons pubis edema was noted. Patient still on vent on pressure control with Fi02 of 45% plus 6 PEEP. Patient had rectal bag. Currently sedated on Dexmedetomidine, Propofol, Versed, and Fentanyl. Discussed with RN. Chart reviewed. Vitals/I&O Vitals/I&O: Vital Signs Date Time Temp Pulse Resp B/P (MAP) Pulse Ox O2 Delivery O2 Flow Rate FiO2 03/17/21 11:00 54 24 99/55 (70) 98 Ventilator 03/17/21 08:00 97.9 97.9 03/16/21 23:09 50.0 I & O 03/16/21 03/16/21 03/17/21 15:00 23:00 07:00 Intake Total 900 ml 2260 ml 2607 ml Output Total 0 ml 25 ml 155 ml Balance 900 ml 2235 ml 2452 ml Physical Exam Physical Exam: GENERAL: Intubated and sedated. HEENT: Normocephalic, atraumatic. Anicteric. Bilateral periorbital edema. Neck right IJ HDC clean LUNGS: Rhonchi. HEART: S1, S2. No murmurs. ABDOMEN: Obese, soft. Bowel sounds present. Nontender, nondistended. Abdominal and mons pubis edema noted. GENITOURINARY: Kern and fecal tube in place. EXTREMITIES: Edema present no cyanosis. CENTRAL NERVOUS SYSTEM: Intubated. PSYCHIATRIC: Unable to assess. Derm has pressure wounds wound pictures noted in chart. Generalized rash, PICC line , right IJ HDC clean General: Other (SEDATED) Heart: Regular rate, Normal S1, Normal S2, No murmurs, Gallops Lungs: Clear Abdomen: Normal bowel sounds, Soft, No tenderness, No hepatosplenomegaly, No masses Extremities: Other (ANASARCA) Skin: No rashes, No significant lesion Labs Labs: Laboratory Tests Test 03/16/21 17:44 03/16/21 21:12 03/17/21 00:10 03/17/21 05:57 Glucose (Fingerstick) 118 mg/dL (70-99) 154 mg/dL (70-99) 206 mg/dL (70-99) 185 mg/dL (70-99) Test 03/17/21 06:20 03/17/21 08:00 Sodium Level 132 mmol/L (136-145) Potassium Level 3.8 mmol/L (3.5-5.1) Chloride Level 95 mmol/L (98-107) Carbon Dioxide Level 25 mmol/L (21-32) Anion Gap 12 (6-14) Blood Urea Nitrogen 30 mg/dL (7-20) Creatinine 4.4 mg/dL (0.6-1.0) Estimated GFR (Cockcroft-Gault) 10.8 BUN/Creatinine Ratio 7 (6-20) Glucose Level 193 mg/dL (70-99) Calcium Level 7.8 mg/dL (8.5-10.1) Total Bilirubin 0.6 mg/dL (0.2-1.0) Aspartate Amino Transf (AST/SGOT) 37 U/L (15-37) Alanine Aminotransferase (ALT/SGPT) 39 U/L (14-59) Alkaline Phosphatase 490 U/L (46-116) Total Protein 6.3 g/dL (6.4-8.2) Albumin 1.2 g/dL (3.4-5.0) Albumin/Globulin Ratio 0.2 (1.0-1.7) Triglycerides Level 404 mg/dL (0-150) O2 Saturation 95 % (92-99) Arterial Blood pH 7.39 (7.35-7.45) Arterial Blood pCO2 at Patient Temp 37 mmHg (35-46) Arterial Blood pO2 at Patient Temp 82 mmHg (75-108) Arterial Blood HCO3 22 mmol/L (21-28) Arterial Blood Base Excess -3 mmol/L (-3-3) FiO2 45/vent Review of Systems Review of Systems: GI: no nausea. no vomiting. Eyes: no changes in vision. no blurry vision. Assessment and Plan Assessmemt and Plan Problems Medical Problems: (1) Ketoacidosis Status: Acute Covid-19 DKA Hypotension Nausea Vomiting Combined metabolic and respiratory acidosis Acute electrolyte derangementhyponatremia, hypochloremia due to volume depletion Hyperglycemia BOB Erythrocytosis Candiduria Sacral decubitus ulcer Plan: 1. Going for tracheostomy today 2. ICU monitoring 3. Sedated on Dexmedetomidine, Propofol, Versed, Fentanyl 4. Vent weaning 5. Trend labs 6. Full code 7. DVT prophylaxis 8. Continue NG feeding 9. Prognosis guarded Appreciate subspecialist input CC time 32-minute Comment Review of Relevant I have reviewed the following items mazin (where applicable) has been applied. Medications: Current Medications Medications (Trade) Dose Ordered Sig/Pepe Route PRN Reason Start Time Stop Time Status Last Admin Dose Admin Cellulose (Surgicel Fibrillar 1x2) 1 each STK-MED ONCE .ROUTE 03/17/21 10:47 03/17/21 10:47 DC 03/17/21 11:56 Justifications for Admission Other Justification DIANELYS BLACKMON III DO Mar 17, 2021 13:02
[2021-03-17] MEDS ORDERED: ACETAMINOPHEN 500 MG TABLET PO PRN (13:30)
[2021-03-17] MEDS ORDERED: DIALYSIS PATIENT. MC PRN ×2 (13:30)
[2021-03-17] MEDS ORDERED: diphenhydrAMINE 50 MG/ML VIAL IV PRN ×2 (13:30)
[2021-03-17] MEDS ORDERED: IV NORMAL SALINE 1000ML BAG 1,000 ML IV PRN ×2 (13:30)
[2021-03-17] MEDS ORDERED: ALBUMIN HUMAN 25% 200 ML IV PRN (13:30)
[2021-03-17] MEDS ORDERED: ALBUMIN HUMAN 25% 100 ML IV ONE ×2 (14:15)
[2021-03-17] MEDS ORDERED: ALBUMIN HUMAN 25% 50 ML IV ONE (14:15)
[2021-03-17] MEDS: MINERAL OIL/PETROLATUM,WHITE OPHTH OINT 3.5GM TUBE. OU PRN (17:36)
[2021-03-17] MEDS: ATORVASTATIN CALCIUM 40 MG TABLET. PO SCH (21:43)
[2021-03-17] MEDS: fentaNYL HIGH DOSE PCA 55 ML IV PRN (22:03)
[2021-03-18] VITALS (25 sets, daily range): BP systolic 102–157; BP diastolic 52–86
[2021-03-18] MEDS: DEXMEDETOMIDINE 400 MCG in IV NORMAL SALINE 100ML 96 ML IV PRN ×7 (02:36→22:46)
[2021-03-18] MEDS: PROPOFOL 100 ML IV PRN ×4 (03:38→18:38)
[2021-03-18] MEDS: INSULIN LISPRO 300 UNITS/3 ML VIAL. SQ SCH ×3 (06:19→17:56)
[2021-03-18] MEDS: HEPARIN for SUB-Q USE 5,000 UNIT/ML VIAL. SQ SCH ×3 (06:20→22:50)
[2021-03-18 06:28] LABS: BASO % 0 % (0-3); EOS % 8 % (0-3); HEMATOCRIT 22.2 % (36.0-47.0); HEMOGLOBIN 7.5 g/dL (12.0-15.5); LYMPH # 0.9 x10^3/uL (1.0-4.8); LYMPH % 8 % (24-48); MEAN CORPUSCULAR HEMOGLOBIN 30 pg (25-35); MEAN CORPUSCULAR HGB CONC 34 g/dL (31-37); MEAN CORPUSCULAR VOLUME 88 fL (79-100); MONO # 0.3 x10^3/uL (0.0-1.1); MONO % 3 % (0-9); NEUT # 10.2 x10^3/uL (1.8-7.7); NEUT % 82 % (31-73); PLATELET COUNT 157 x10^3/uL (140-400); RED BLOOD COUNT 2.53 x10^6/uL (3.50-5.40); RED CELL DISTRIBUTION WIDTH 14.6 % (11.5-14.5); WHITE BLOOD COUNT 12.5 x10^3/uL (4.0-11.0)
[2021-03-18 06:35] LABS: CALCIUM 7.8 mg/dL (8.5-10.1); CREATININE 3.6 mg/dL (0.6-1.0); GFR 13.7; POTASSIUM 4.1 mmol/L (3.5-5.1)
--- NOTE | 2021-03-18 07:37 | PDOC ---
Infectious Disease Note Subjective Subjective Pt intubated sedated Status post tracheostomy ROS ROS No nausea vomiting diarrhea Vital Sign Vital Signs Vital Signs Date Time Temp Pulse Resp B/P (MAP) Pulse Ox O2 Delivery O2 Flow Rate FiO2 03/18/21 06:00 84 24 137/78 (97) 95 Ventilator 03/18/21 04:00 97.8 97.8 03/17/21 22:33 50.0 Physical Exam PHYSICAL EXAM GENERAL: Intubated and sedated. Trach HEENT: Normocephalic, atraumatic. Anicteric. Bilateral periorbital edema. Neck right IJ HDC clean LUNGS: Rhonchi. HEART: S1, S2. No murmurs. ABDOMEN: Obese, soft. Bowel sounds present. Nontender, nondistended. Abdominal and mons pubis edema noted. GENITOURINARY: Kern and fecal tube in place. EXTREMITIES: Edema present no cyanosis. CENTRAL NERVOUS SYSTEM: Intubated. PSYCHIATRIC: Unable to assess. Derm has pressure wounds wound pictures noted in chart. Generalized rash, PICC line , right IJ HDC clean Labs Lab Laboratory Tests Test 03/17/21 08:00 03/17/21 13:03 03/17/21 17:23 03/17/21 23:23 O2 Saturation 95 % (92-99) Arterial Blood pH 7.39 (7.35-7.45) Arterial Blood pCO2 at Patient Temp 37 mmHg (35-46) Arterial Blood pO2 at Patient Temp 82 mmHg (75-108) Arterial Blood HCO3 22 mmol/L (21-28) Arterial Blood Base Excess -3 mmol/L (-3-3) FiO2 45/vent Glucose (Fingerstick) 192 mg/dL (70-99) 122 mg/dL (70-99) 213 mg/dL (70-99) Test 03/18/21 05:54 03/18/21 05:55 Glucose (Fingerstick) 179 mg/dL (70-99) White Blood Count 12.5 x10^3/uL (4.0-11.0) Red Blood Count 2.53 x10^6/uL (3.50-5.40) Hemoglobin 7.5 g/dL (12.0-15.5) Hematocrit 22.2 % (36.0-47.0) Mean Corpuscular Volume 88 fL (79-100) Mean Corpuscular Hemoglobin 30 pg (25-35) Mean Corpuscular Hemoglobin Concent 34 g/dL (31-37) Red Cell Distribution Width 14.6 % (11.5-14.5) Platelet Count 157 x10^3/uL (140-400) Neutrophils (%) (Auto) 82 % (31-73) Lymphocytes (%) (Auto) 8 % (24-48) Monocytes (%) (Auto) 3 % (0-9) Eosinophils (%) (Auto) 8 % (0-3) Basophils (%) (Auto) 0 % (0-3) Neutrophils # (Auto) 10.2 x10^3/uL (1.8-7.7) Lymphocytes # (Auto) 0.9 x10^3/uL (1.0-4.8) Monocytes # (Auto) 0.3 x10^3/uL (0.0-1.1) Eosinophils # (Auto) 1.0 x10^3/uL (0.0-0.7) Basophils # (Auto) 0.0 x10^3/uL (0.0-0.2) Sodium Level 133 mmol/L (136-145) Potassium Level 4.1 mmol/L (3.5-5.1) Chloride Level 96 mmol/L (98-107) Carbon Dioxide Level 26 mmol/L (21-32) Anion Gap 11 (6-14) Blood Urea Nitrogen 23 mg/dL (7-20) Creatinine 3.6 mg/dL (0.6-1.0) Estimated GFR (Cockcroft-Gault) 13.7 Glucose Level 185 mg/dL (70-99) Calcium Level 7.8 mg/dL (8.5-10.1) Micro Microbiology 03/04/21 Gram Stain Evaluation - Final, Complete 03/04/21 Respiratory Culture - Final, Complete 03/04/21 Urine Culture - Final, Complete 03/04/21 Blood Culture - Preliminary, Resulted NO GROWTH AFTER 4 DAYS Objective Assessment 1. Febrile illness. Improved 2. COVID-19 infection present on date of admission, 02/06/2021. Status post remdesivir, dexamethasone. 3. Acute hypoxic respiratory failure, status post intubation. Trach cultures positive for [place] albicans 4. Diabetes. 5. Diarrhea. 6. Hypertension. 7. Hyperlipidemia. 8. Anemia. 9. BOB on HD 10.UC jamaiac albican, ua neg Plan Plan of Care Discontinue Zyvox Follow-up lab ,cultures, C. diff PCR negative Kern changed per team Wound care per wound treatment Offload Continue supportive care. Prognosis guarded. D/W BLANCA CURIEL MD Mar 18, 2021 07:37
[2021-03-18 07:57] LABS: BASE EXCESS ABG -4 mmol/L (-3-3); HCO3 ABG 21 mmol/L (21-28); PCO2 ABG 34 mmHg (35-46); PO2 ABG 62 mmHg (75-108); SAT O2 ABG 90 % (92-99)
[2021-03-18] MEDS: DOCUSATE 100 MG/10 ML SOLUTION. PO SCH ×2 (08:07→21:00)
[2021-03-18] MEDS: FAMOTIDINE 20 MG/2 ML VIAL IVP SCH (08:07)
[2021-03-18] MEDS: NYSTATIN TOPICAL POWDER 15GM BOTTLE. TP SCH ×2 (08:07→20:30)
[2021-03-18] MEDS: MULTIVITAMINS,THERAPEUTIC 5 ML ORAL LIQUID. PEG SCH (08:07)
[2021-03-18] MEDS: MINERAL OIL/PETROLATUM,WHITE OPHTH OINT 3.5GM TUBE. OU PRN (08:10)
--- NOTE | 2021-03-18 08:10 | RAD ---
EXAM: XR CHEST 1V 03/18/2021 6:31 AM CLINICAL INDICATION: Respiratory failure COMPARISON: Chest radiograph 03/16/2021 TECHNIQUE: AP semierect view of the chest FINDINGS: There is a new tracheostomy tube with tip between the clavicular heads. Nasogastric tube t erminates in the gastric body. A right IJ central venous catheter and right PICC both project over th e superior cavoatrial junction. The cardiac silhouette is obscured. Extensive bilateral airspace opac ities throughout the lungs are unchanged. No pleural effusion or pneumothorax. IMPRESSION: 1. New tracheostomy tube in appropriate position. Other lines and tubes unchanged. 2. Unchanged diffuse bilateral airspace opacities, which may reflect ARDS/edema, or multifocal pneumo sim. Electronically signed by: Jennifer Johnson MD (03/18/2021 8:07 AM) [id number]
[2021-03-18] MEDS: INSULIN GLARGINE SYRINGE. SQ SCH ×2 (08:46→20:58)
[2021-03-18 08:58] LABS: FIO2 ABG 45% VENT
--- NOTE | 2021-03-18 09:02 | PDOC ---
[facility] PROGRESS NOTE Date of Service DOS: DATE: 03/18/21 TIME: 08:49 Chief Complaint Chief Complaint CC: Covid-19 DKA Hypotension Nausea Vomiting Combined metabolic and respiratory acidosis Acute electrolyte derangementhyponatremia, hypochloremia due to volume depletion Hyperglycemia BOB Erythrocytosis Candiduria Sacral decubitus ulcer History of Present Illness History of Present Illness Ms Borges is a 46 year old female who presented with nausea/vomiting since 7 AM 02/06/2021 in the morning. Patient stated that her recently tested positive for Covid. She states that he "coughed in my face because he thought it was funny." She reports subjective fevers and chills and nausea/vomiting. Denies sore throat, cough, shortness of breath. No chest pain. Does have some upper abdominal discomfort after vomiting, that she attributes to muscular strain. She was not vaccinated for Covid. 02/08: No acute events overnight. Patient seen and examined bedside and resting comfortably. Continues to complain of nausea not able to tolerate any diet at this time. Saturating 98% on room air. Patient's chart, labs, images were reviewed and discussed with RN 02/09: Afebrile, currently breathing on room air. Still with complaints of nausea and vomiting x3 today. States that she has history of similar symptoms that have been mildly improved with IV Dilaudid. 02/10: Patient febrile today with T-max 102.2 F. She still admits to nausea, denies any further vomiting. We will continue to provide supportive care and monitor for any recurrent fevers overnight. Patient continues to improve may discharge tomorrow to continue self-isolation. 02/11: Febrile overnight, T-max 102.3 F. She did become hypoxic overnight, currently breathing on 4 L nasal cannula. Also admits to associated vomiting or diarrhea overnight. Discussed with RN, will initiate remdesivir and closely monitor LFTs. IV Decadron, and prophylactic antibiotics. 02/12: Low-grade fever overnight, T-max 99.7. Currently breathing on room air. Will discontinue remdesivir, steroids, and antibiotics; will observe overnight. Still with complaints of vomiting x1 and diarrhea. We will continue to provide supportive care and hope to discharge in the next day or so. 02/13: Afebrile. Still complains of intermittent diarrhea. At the time of my evaluation she was breathing on 6 L nasal cannula; this is somewhat misleading as patient states that she did not feel short of breath but was placed on 6 L by nursing staff overnight. 02/14: Afebrile, currently breathing on 8 L nasal cannula. There has been some misleading documentation, chart oxygen this patient is requiring. Discussed with RN, will resume remdesivir to complete total of 5 days. Continue to monitor LFTs. Will add steroids, Rocephin, and azithromycin. 02/15: Afebrile. Became much more hypoxic overnight, requiring BiPAP. At the time of my evaluation she is still breathing on BiPAP. Consultation was placed to pulmonology. Had discussion with Dr. Myrick about initiating Tocilizumab 02/16: No acute events overnight. Patient becoming more hypoxic saturating 94% and requiring BiPAP. Patient will be transferred to the ICU at this time. For worsening clinical status. Discussed with pulmonary. Patient's chart, labs, images were reviewed and discussed with RN 02/17: Transferred to ICU yesterday afternoon. Seen and examined at bedside she remains on 100% FiO2 on BiPAP. Respirations do appear somewhat labored. Susp ect intubation may be impending. We will closely monitor. Increase lisinopril to 20 today. 02/18: Patient required intubation yesterday afternoon. Saw and examined this morning. She is intubated and sedated. Increase insulin today. Covid protocol ordered. Wean as tolerated. Plan of care discussed with bedside nurse. 02/19: Bedside. She remains intubated and sedated. Continue Covid protocol. Wean oxygen sedation as tolerated. Pulmonary following. Plan of care discussed with bedside RN. 02/20: Patient seen and examined at bedside. She remains intubated and sedated. No major clinical changes. Continue current treatment. Pulmonary following. Plan of care discussed with bedside RN. 02/21: Patient seen and examined at bedside. Remains intubated and sedated date and admission clinical changes. Increase free water flushes today due to hypernatremia. Plan of care discussed with bedside nurse. 02/22: Patient seen and examined at bedside. O2 requirement actually improving, although remains intubated. Possible SBT in the coming days. Hypernatremia improving. Plan of care discussed bedside RN. 02/23: Patient remains in ICU on ventilator with FiO2 100%, PEEP 7. Repeat chest x-ray yesterday showed diffuse bilateral pulmonary opacities with no interval improvement. Will discontinue Rocephin and initiate Zosyn. We will continue IV steroids for a full 10-day course 02/24: Afebrile. On vent with FiO2 40%, PEEP 6. Her Coreg has been held due to persistent bradycardia. No documented history of systolic heart failure or previous echocardiogram. Will need to obtain echocardiogram prior to discharge. Continue IV steroids and antibiotics. 02/25: Afebrile. Remains ventilated with FiO2 45%, PEEP 6. Chest x-ray today showed slight improvement of the pulmonary infiltrates, no pneumothorax. Completed 10-day course of IV Decadron. Will initiate slow Solu-Medrol taper. Continue IV Zosyn. Continue supportive care. 02/26: Afebrile. On vent with FiO2 45%, PEEP 6. Completed 10 days of IV Decadron. Will continue IV Zosyn. Continue supportive care. Critical care time 30 minutes spent reviewing charts, reviewing imaging, reviewing labs, discussion with RN. 02/27: Afebrile. On vent with FiO2 45%, PEEP 6. Completed 10 days of steroids and completed remdesivir. Continue with IV Zosyn. CPAP trial yesterday. Continue NG tube and supportive care. 02/28:. Patient remains on vent with FiO2 40%, PEEP 5. Afebrile. Completed steroids and remdesivir. Some noted hypoglycemia overnight, will de-escalate basal insulin. Continue IV Zosyn. Ventilator management per pulmonology. Continue NG tube and supportive care. 03/01: On vent with FiO2 40%, PEEP 5. Afebrile. Completed steroids and remdesivir. Blood glucose well controlled. Continue empiric antibiotics with Zosyn. Ventilator management per pulmonology. Continue NG tube and supportive care. 03/02: No acute events overnight. Patient hypotensive the morning due to oversedation. Will wean off sedation and keep antihypertensive medications on board. Currently saturating 100% on vent settings of 18/450/40/5. Will attempt spontaneous breathing trial today to see how patient does. 03/03: No acute events overnight. Patient saturating 98% on vent settings of 18/450/40/5. Will defer spontaneous breathing trials to pulmonary at this time. Patient's chart, labs, images were reviewed and discussed with RN 03/04: No acute events overnight. Patient saturating 9 9% on vent settings of 18/450/30/5. Patient currently is unable to tolerate weaning. Per pulmonary. Patient's chart, labs, images were reviewed and discussed with RN 8: No acute events overnight. Patient is saturating 97% on vent settings of 18/450/55/5. Her FiO2 needs to be increased due to abnormal ABG with 7.3 /58/24. Patient's chart, labs, images were reviewed and discussed with RN 8: No acute events overnight. Patient saturating 94% on vent settings of 18/450/55/5. Chest x-ray showing increase in pulmonary infiltrates. Wound care is consulted for decubitus ulcer patient's chart, labs, images were reviewed and discussed with RN 8: No acute events overnight. Patient saturating 94% on vent settings of 20/450/70/8. Patient now heading into renal failure with her creatinine bumped up from 1.5-4.2. Decreased urine output. Plan for hemodialysis today and temporary catheter placement and nephrology is consulted. 03/08: No acute events overnight. Patient did have a nausea vomiting episode and tube feeds were held. KUB repeat shows NG tube still in the stomach. Will resume tube feeds at trickle and advance to goal today. Will start hemodialysis soon. 03/09: Seen on vent 20/450/60%/8. ABG 7.2 WBC 11.4, Hb 7.4, platelets 188, NA 131, K4.9, BUN 48, CR 51, glucose 199, phosphorus 7.9, mag 2.2, AST 265 ALT 219, albumin 1.1. Chest radiograph appears unchanged from prior. Dialysis x1 today 03/10: Afebrile. Seen on vent, 20/450/60/7 with ABG 7.3 . Tolerated dialysis well on 03/09. LFTs similar. 03/11: Afebrile. Seen on vent, sedated. Still requiring Levophed for BP support. WBC 16.7, Hb 8.1, NA 130, ABG 7.3 on 55% FiO2 PEEP 6. On Zosyn and Zyvox Diflucan. Dialysis today 03/12: Afebrile. Still requiring Levophed for BP support sedated with Versed febrile Precedex. WBC 16.1, Hb 8.5, platelets 185, NA 133. Trach plan tentatively 03/17. O2 saturations 93% on 50% FiO2 PEEP 6. ABG 7.38/35/79 On Zosyn and Zyvox Diflucan. 03/13: Afebrile. Still on Levophed for BP support lightly sedated. 7./ on 45% FiO2. Plan for dialysis today. On Zosyn and Zyvox Diflucan. More swollen today. 03/14: Afebrile. Weaning down off Levophed. WBC 14.9 NA 132. O2 saturations 92% on 45% FiO2 PEEP 5. Afebrile. O2 saturations 91% on FiO2 45% PEEP 6. Continued on Zosyn and Zyvox Diflucan. Tentative trach planned 03/17/2021 CC time 31 minutes 03/16/21: Patient seen and examined in ICU. Periorbital as well as upper and lower extremity edema noted. OG feed running at 30cc/hr. Still on vent on pressure control with a rate of 24 with 45% FiO2. Patient has rectal bag. Currently she has 98% O2 sat. Currently sedated with Dexmedetomidine, Propofol, Versed, and Fentanyl. Discussed with RN. Chart reviewed. 03/17/21: Patient was seen and examined in the ICU today. Periorbital edema as well as abdominal and mons pubis edema was noted. Patient still on vent on pressure control with Fi02 of 45% plus 6 PEEP. Patient had rectal bag. Currently sedated on Dexmedetomidine, Propofol, Versed, and Fentanyl. Discussed with RN. Chart reviewed. 03/18/21: Patient seen and examined in ICU. On vent via trach that was placed yesterday. Vent settings are Pressure Control of 40 with FiO2 of 45% and 6 PEEP. Trach clean and dry. Orbital swelling still present. Pupils are sluggish. Patient on TPN running at 30cc/hr. Kern to bedside and rectal bag in place. Current O2 sat at 94%. Sedated on Dexmedetomidine, Propofol, Versed, and Fentanyl. Discussed with RN. Chart reviewed. Vitals/I&O Vitals/I&O: Vital Signs Date Time Temp Pulse Resp B/P (MAP) Pulse Ox O2 Delivery O2 Flow Rate FiO2 03/18/21 08:00 Mechanical Ventilator 03/18/21 08:00 100.4 96 24 142/86 (104) 94 100.4 03/17/21 22:33 50.0 I & O 03/17/21 03/17/21 03/18/21 15:00 23:00 07:00 Intake Total 50 ml 2438 ml 1564 ml Output Total 0 ml 0 ml Balance 50 ml 2438 ml 1564 ml Physical Exam Physical Exam: GENERAL: Intubated and sedated. Trach HEENT: Normocephalic, atraumatic. Anicteric. Bilateral periorbital edema. Neck right IJ HDC clean LUNGS: Rhonchi. HEART: S1, S2. No murmurs. ABDOMEN: Obese, soft. Bowel sounds present. Nontender, nondistended. Abdominal and mons pubis edema noted. GENITOURINARY: Kern and fecal tube in place. EXTREMITIES: Edema present no cyanosis. CENTRAL NERVOUS SYSTEM: Intubated. PSYCHIATRIC: Unable to assess. Derm has pressure wounds wound pictures noted in chart. Generalized rash, PICC line , right IJ HDC clean General: Other (SEDATED) Heart: Regular rate, Normal S1, Normal S2, No murmurs, Gallops Lungs: Clear Abdomen: Normal bowel sounds, Soft, No tenderness, No hepatosplenomegaly, No masses Extremities: Other (ANASARCA) Skin: No rashes, No significant lesion Labs Labs: Laboratory Tests Test 03/17/21 13:03 03/17/21 17:23 03/17/21 23:23 03/18/21 05:54 Glucose (Fingerstick) 192 mg/dL (70-99) 122 mg/dL (70-99) 213 mg/dL (70-99) 179 mg/dL (70-99) Test 03/18/21 05:55 White Blood Count 12.5 x10^3/uL (4.0-11.0) Red Blood Count 2.53 x10^6/uL (3.50-5.40) Hemoglobin 7.5 g/dL (12.0-15.5) Hematocrit 22.2 % (36.0-47.0) Mean Corpuscular Volume 88 fL (79-100) Mean Corpuscular Hemoglobin 30 pg (25-35) Mean Corpuscular Hemoglobin Concent 34 g/dL (31-37) Red Cell Distribution Width 14.6 % (11.5-14.5) Platelet Count 157 x10^3/uL (140-400) Neutrophils (%) (Auto) 82 % (31-73) Lymphocytes (%) (Auto) 8 % (24-48) Monocytes (%) (Auto) 3 % (0-9) Eosinophils (%) (Auto) 8 % (0-3) Basophils (%) (Auto) 0 % (0-3) Neutrophils # (Auto) 10.2 x10^3/uL (1.8-7.7) Lymphocytes # (Auto) 0.9 x10^3/uL (1.0-4.8) Monocytes # (Auto) 0.3 x10^3/uL (0.0-1.1) Eosinophils # (Auto) 1.0 x10^3/uL (0.0-0.7) Basophils # (Auto) 0.0 x10^3/uL (0.0-0.2) Sodium Level 133 mmol/L (136-145) Potassium Level 4.1 mmol/L (3.5-5.1) Chloride Level 96 mmol/L (98-107) Carbon Dioxide Level 26 mmol/L (21-32) Anion Gap 11 (6-14) Blood Urea Nitrogen 23 mg/dL (7-20) Creatinine 3.6 mg/dL (0.6-1.0) Estimated GFR (Cockcroft-Gault) 13.7 Glucose Level 185 mg/dL (70-99) Calcium Level 7.8 mg/dL (8.5-10.1) Review of Systems Review of Systems: GI: no nausea. no vomiting. Eyes: no changes in vision. no blurry vision. Assessment and Plan Assessmemt and Plan Problems Medical Problems: (1) Ketoacidosis Status: Acute Covid-19 DKA Hypotension Nausea Vomiting Combined metabolic and respiratory acidosis Acute electrolyte derangementhyponatremia, hypochloremia due to volume depletion Hyperglycemia BOB Erythrocytosis Candiduria Sacral decubitus ulcer Plan: 1. ICU monitoring 2. Wean off Levophed 3. Vent weaning 4. Continue sedation with Dexmedetomidine, Propofol, Versed, Fentanyl 5. Continue NG feeding (30 cc/hr) 5. Trend labs 6. Full code 7. DVT prophylaxis 8. Appreciate subspecialist input 9. Prognosis guarded (I am concerned she may not survive) CC time 32 minutes Comment Review of Relevant I have reviewed the following items mazin (where applicable) has been applied. Medications: Current Medications Medications (Trade) Dose Ordered Sig/Pepe Route PRN Reason Start Time Stop Time Status Last Admin Dose Admin Cellulose (Surgicel Fibrillar 1x2) 1 each STK-MED ONCE .ROUTE 03/17/21 10:47 03/17/21 10:47 DC 03/17/21 11:56 Albumin Human 100 ml @ 100 mls/hr 1X ONCE IV 03/17/21 14:15 03/17/21 15:19 DC 03/17/21 15:40 Albumin Human 100 ml @ 100 mls/hr 1X ONCE IV 03/17/21 14:15 03/17/21 15:19 DC 03/17/21 15:41 Multi-Ingred Cream/Lotion/Oil/ Oint (Artificial Tears Eye Ointment) 1 reji PRN Q1HR PRN OU DRY EYE 03/17/21 17:30 03/18/21 08:10 Justifications for Admission Other Justification DIANELYS BLACKMON III DO Mar 18, 2021 09:02
--- NOTE | 2021-03-18 09:26 | PDOC ---
SURGICAL PROGRESS NOTE DATE: 03/18/21 TIME: 09:24 Subjective Pt intubated, stable trach intact will sign off, but please call for questions. Vital Signs Vital Signs Date Time Temp Pulse Resp B/P (MAP) Pulse Ox O2 Delivery O2 Flow Rate FiO2 03/18/21 08:00 Mechanical Ventilator 03/18/21 08:00 100.4 96 24 142/86 (104) 94 100.4 03/17/21 22:33 50.0 I&O Intake and Output 03/18/21 07:00 Intake Total 4052 ml Output Total 0 ml Balance 4052 ml IV Total 2501 ml Tube Feeding 1201 ml Other 350 ml Output Urine Total 0 ml Labs Laboratory Tests Test 03/16/21 11:59 03/16/21 17:44 03/16/21 21:12 03/17/21 00:10 Glucose (Fingerstick) 237 mg/dL (70-99) 118 mg/dL (70-99) 154 mg/dL (70-99) 206 mg/dL (70-99) Test 03/17/21 05:57 03/17/21 06:20 03/17/21 08:00 03/17/21 13:03 Glucose (Fingerstick) 185 mg/dL (70-99) 192 mg/dL (70-99) Sodium Level 132 mmol/L (136-145) Potassium Level 3.8 mmol/L (3.5-5.1) Chloride Level 95 mmol/L (98-107) Carbon Dioxide Level 25 mmol/L (21-32) Anion Gap 12 (6-14) Blood Urea Nitrogen 30 mg/dL (7-20) Creatinine 4.4 mg/dL (0.6-1.0) Estimated GFR (Cockcroft-Gault) 10.8 BUN/Creatinine Ratio 7 (6-20) Glucose Level 193 mg/dL (70-99) Calcium Level 7.8 mg/dL (8.5-10.1) Total Bilirubin 0.6 mg/dL (0.2-1.0) Aspartate Amino Transf (AST/SGOT) 37 U/L (15-37) Alanine Aminotransferase (ALT/SGPT) 39 U/L (14-59) Alkaline Phosphatase 490 U/L (46-116) Total Protein 6.3 g/dL (6.4-8.2) Albumin 1.2 g/dL (3.4-5.0) Albumin/Globulin Ratio 0.2 (1.0-1.7) Triglycerides Level 404 mg/dL (0-150) O2 Saturation 95 % (92-99) Arterial Blood pH 7.39 (7.35-7.45) Arterial Blood pCO2 at Patient Temp 37 mmHg (35-46) Arterial Blood pO2 at Patient Temp 82 mmHg (75-108) Arterial Blood HCO3 22 mmol/L (21-28) Arterial Blood Base Excess -3 mmol/L (-3-3) FiO2 45/vent Test 03/17/21 17:23 03/17/21 23:23 03/18/21 05:54 03/18/21 05:55 Glucose (Fingerstick) 122 mg/dL (70-99) 213 mg/dL (70-99) 179 mg/dL (70-99) White Blood Count 12.5 x10^3/uL (4.0-11.0) Red Blood Count 2.53 x10^6/uL (3.50-5.40) Hemoglobin 7.5 g/dL (12.0-15.5) Hematocrit 22.2 % (36.0-47.0) Mean Corpuscular Volume 88 fL (79-100) Mean Corpuscular Hemoglobin 30 pg (25-35) Mean Corpuscular Hemoglobin Concent 34 g/dL (31-37) Red Cell Distribution Width 14.6 % (11.5-14.5) Platelet Count 157 x10^3/uL (140-400) Neutrophils (%) (Auto) 82 % (31-73) Lymphocytes (%) (Auto) 8 % (24-48) Monocytes (%) (Auto) 3 % (0-9) Eosinophils (%) (Auto) 8 % (0-3) Basophils (%) (Auto) 0 % (0-3) Neutrophils # (Auto) 10.2 x10^3/uL (1.8-7.7) Lymphocytes # (Auto) 0.9 x10^3/uL (1.0-4.8) Monocytes # (Auto) 0.3 x10^3/uL (0.0-1.1) Eosinophils # (Auto) 1.0 x10^3/uL (0.0-0.7) Basophils # (Auto) 0.0 x10^3/uL (0.0-0.2) Sodium Level 133 mmol/L (136-145) Potassium Level 4.1 mmol/L (3.5-5.1) Chloride Level 96 mmol/L (98-107) Carbon Dioxide Level 26 mmol/L (21-32) Anion Gap 11 (6-14) Blood Urea Nitrogen 23 mg/dL (7-20) Creatinine 3.6 mg/dL (0.6-1.0) Estimated GFR (Cockcroft-Gault) 13.7 Glucose Level 185 mg/dL (70-99) Calcium Level 7.8 mg/dL (8.5-10.1) Test 03/18/21 08:00 O2 Saturation 90 % (92-99) Arterial Blood pH 7.41 (7.35-7.45) Arterial Blood pCO2 at Patient Temp 34 mmHg (35-46) Arterial Blood pO2 at Patient Temp 62 mmHg (75-108) Arterial Blood HCO3 21 mmol/L (21-28) Arterial Blood Base Excess -4 mmol/L (-3-3) FiO2 45% vent Laboratory Tests Test 03/17/21 13:03 03/17/21 17:23 03/17/21 23:23 03/18/21 05:54 Glucose (Fingerstick) 192 mg/dL (70-99) 122 mg/dL (70-99) 213 mg/dL (70-99) 179 mg/dL (70-99) Test 03/18/21 05:55 03/18/21 08:00 White Blood Count 12.5 x10^3/uL (4.0-11.0) Red Blood Count 2.53 x10^6/uL (3.50-5.40) Hemoglobin 7.5 g/dL (12.0-15.5) Hematocrit 22.2 % (36.0-47.0) Mean Corpuscular Volume 88 fL (79-100) Mean Corpuscular Hemoglobin 30 pg (25-35) Mean Corpuscular Hemoglobin Concent 34 g/dL (31-37) Red Cell Distribution Width 14.6 % (11.5-14.5) Platelet Count 157 x10^3/uL (140-400) Neutrophils (%) (Auto) 82 % (31-73) Lymphocytes (%) (Auto) 8 % (24-48) Monocytes (%) (Auto) 3 % (0-9) Eosinophils (%) (Auto) 8 % (0-3) Basophils (%) (Auto) 0 % (0-3) Neutrophils # (Auto) 10.2 x10^3/uL (1.8-7.7) Lymphocytes # (Auto) 0.9 x10^3/uL (1.0-4.8) Monocytes # (Auto) 0.3 x10^3/uL (0.0-1.1) Eosinophils # (Auto) 1.0 x10^3/uL (0.0-0.7) Basophils # (Auto) 0.0 x10^3/uL (0.0-0.2) Sodium Level 133 mmol/L (136-145) Potassium Level 4.1 mmol/L (3.5-5.1) Chloride Level 96 mmol/L (98-107) Carbon Dioxide Level 26 mmol/L (21-32) Anion Gap 11 (6-14) Blood Urea Nitrogen 23 mg/dL (7-20) Creatinine 3.6 mg/dL (0.6-1.0) Estimated GFR (Cockcroft-Gault) 13.7 Glucose Level 185 mg/dL (70-99) Calcium Level 7.8 mg/dL (8.5-10.1) O2 Saturation 90 % (92-99) Arterial Blood pH 7.41 (7.35-7.45) Arterial Blood pCO2 at Patient Temp 34 mmHg (35-46) Arterial Blood pO2 at Patient Temp 62 mmHg (75-108) Arterial Blood HCO3 21 mmol/L (21-28) Arterial Blood Base Excess -4 mmol/L (-3-3) FiO2 45% vent Problem List Problems Medical Problems: (1) Ketoacidosis Status: Acute Justicifation of Admission Dx: Justifications for Admission: Justification of Admission Dx: N/A DANIEL ACHARYA MD Mar 18, 2021 09:26
--- NOTE | 2021-03-18 09:27 | PDOC ---
PULMONARY PROGRESS NOTES DATE: 03/18/21 TIME: 09:27 Subjective No overnight events, currently on pressure control of 42, 45% FiO2 6 of PEEP Vitals Vital Signs Date Time Temp Pulse Resp B/P (MAP) Pulse Ox O2 Delivery O2 Flow Rate FiO2 03/18/21 08:00 Mechanical Ventilator 03/18/21 08:00 100.4 96 24 142/86 (104) 94 100.4 03/17/21 22:33 50.0 Lungs: Clear Cardiovascular: S1 Abdomen: Soft Skin: Warm Labs Laboratory Tests Test 03/16/21 11:59 03/16/21 17:44 03/16/21 21:12 03/17/21 00:10 Glucose (Fingerstick) 237 mg/dL (70-99) 118 mg/dL (70-99) 154 mg/dL (70-99) 206 mg/dL (70-99) Test 03/17/21 05:57 03/17/21 06:20 03/17/21 08:00 03/17/21 13:03 Glucose (Fingerstick) 185 mg/dL (70-99) 192 mg/dL (70-99) Sodium Level 132 mmol/L (136-145) Potassium Level 3.8 mmol/L (3.5-5.1) Chloride Level 95 mmol/L (98-107) Carbon Dioxide Level 25 mmol/L (21-32) Anion Gap 12 (6-14) Blood Urea Nitrogen 30 mg/dL (7-20) Creatinine 4.4 mg/dL (0.6-1.0) Estimated GFR (Cockcroft-Gault) 10.8 BUN/Creatinine Ratio 7 (6-20) Glucose Level 193 mg/dL (70-99) Calcium Level 7.8 mg/dL (8.5-10.1) Total Bilirubin 0.6 mg/dL (0.2-1.0) Aspartate Amino Transf (AST/SGOT) 37 U/L (15-37) Alanine Aminotransferase (ALT/SGPT) 39 U/L (14-59) Alkaline Phosphatase 490 U/L (46-116) Total Protein 6.3 g/dL (6.4-8.2) Albumin 1.2 g/dL (3.4-5.0) Albumin/Globulin Ratio 0.2 (1.0-1.7) Triglycerides Level 404 mg/dL (0-150) O2 Saturation 95 % (92-99) Arterial Blood pH 7.39 (7.35-7.45) Arterial Blood pCO2 at Patient Temp 37 mmHg (35-46) Arterial Blood pO2 at Patient Temp 82 mmHg (75-108) Arterial Blood HCO3 22 mmol/L (21-28) Arterial Blood Base Excess -3 mmol/L (-3-3) FiO2 45/vent Test 03/17/21 17:23 03/17/21 23:23 03/18/21 05:54 03/18/21 05:55 Glucose (Fingerstick) 122 mg/dL (70-99) 213 mg/dL (70-99) 179 mg/dL (70-99) White Blood Count 12.5 x10^3/uL (4.0-11.0) Red Blood Count 2.53 x10^6/uL (3.50-5.40) Hemoglobin 7.5 g/dL (12.0-15.5) Hematocrit 22.2 % (36.0-47.0) Mean Corpuscular Volume 88 fL (79-100) Mean Corpuscular Hemoglobin 30 pg (25-35) Mean Corpuscular Hemoglobin Concent 34 g/dL (31-37) Red Cell Distribution Width 14.6 % (11.5-14.5) Platelet Count 157 x10^3/uL (140-400) Neutrophils (%) (Auto) 82 % (31-73) Lymphocytes (%) (Auto) 8 % (24-48) Monocytes (%) (Auto) 3 % (0-9) Eosinophils (%) (Auto) 8 % (0-3) Basophils (%) (Auto) 0 % (0-3) Neutrophils # (Auto) 10.2 x10^3/uL (1.8-7.7) Lymphocytes # (Auto) 0.9 x10^3/uL (1.0-4.8) Monocytes # (Auto) 0.3 x10^3/uL (0.0-1.1) Eosinophils # (Auto) 1.0 x10^3/uL (0.0-0.7) Basophils # (Auto) 0.0 x10^3/uL (0.0-0.2) Sodium Level 133 mmol/L (136-145) Potassium Level 4.1 mmol/L (3.5-5.1) Chloride Level 96 mmol/L (98-107) Carbon Dioxide Level 26 mmol/L (21-32) Anion Gap 11 (6-14) Blood Urea Nitrogen 23 mg/dL (7-20) Creatinine 3.6 mg/dL (0.6-1.0) Estimated GFR (Cockcroft-Gault) 13.7 Glucose Level 185 mg/dL (70-99) Calcium Level 7.8 mg/dL (8.5-10.1) Test 03/18/21 08:00 O2 Saturation 90 % (92-99) Arterial Blood pH 7.41 (7.35-7.45) Arterial Blood pCO2 at Patient Temp 34 mmHg (35-46) Arterial Blood pO2 at Patient Temp 62 mmHg (75-108) Arterial Blood HCO3 21 mmol/L (21-28) Arterial Blood Base Excess -4 mmol/L (-3-3) FiO2 45% vent Laboratory Tests Test 03/17/21 13:03 03/17/21 17:23 03/17/21 23:23 03/18/21 05:54 Glucose (Fingerstick) 192 mg/dL (70-99) 122 mg/dL (70-99) 213 mg/dL (70-99) 179 mg/dL (70-99) Test 03/18/21 05:55 03/18/21 08:00 White Blood Count 12.5 x10^3/uL (4.0-11.0) Red Blood Count 2.53 x10^6/uL (3.50-5.40) Hemoglobin 7.5 g/dL (12.0-15.5) Hematocrit 22.2 % (36.0-47.0) Mean Corpuscular Volume 88 fL (79-100) Mean Corpuscular Hemoglobin 30 pg (25-35) Mean Corpuscular Hemoglobin Concent 34 g/dL (31-37) Red Cell Distribution Width 14.6 % (11.5-14.5) Platelet Count 157 x10^3/uL (140-400) Neutrophils (%) (Auto) 82 % (31-73) Lymphocytes (%) (Auto) 8 % (24-48) Monocytes (%) (Auto) 3 % (0-9) Eosinophils (%) (Auto) 8 % (0-3) Basophils (%) (Auto) 0 % (0-3) Neutrophils # (Auto) 10.2 x10^3/uL (1.8-7.7) Lymphocytes # (Auto) 0.9 x10^3/uL (1.0-4.8) Monocytes # (Auto) 0.3 x10^3/uL (0.0-1.1) Eosinophils # (Auto) 1.0 x10^3/uL (0.0-0.7) Basophils # (Auto) 0.0 x10^3/uL (0.0-0.2) Sodium Level 133 mmol/L (136-145) Potassium Level 4.1 mmol/L (3.5-5.1) Chloride Level 96 mmol/L (98-107) Carbon Dioxide Level 26 mmol/L (21-32) Anion Gap 11 (6-14) Blood Urea Nitrogen 23 mg/dL (7-20) Creatinine 3.6 mg/dL (0.6-1.0) Estimated GFR (Cockcroft-Gault) 13.7 Glucose Level 185 mg/dL (70-99) Calcium Level 7.8 mg/dL (8.5-10.1) O2 Saturation 90 % (92-99) Arterial Blood pH 7.41 (7.35-7.45) Arterial Blood pCO2 at Patient Temp 34 mmHg (35-46) Arterial Blood pO2 at Patient Temp 62 mmHg (75-108) Arterial Blood HCO3 21 mmol/L (21-28) Arterial Blood Base Excess -4 mmol/L (-3-3) FiO2 45% vent Medications Active Scripts Medications Dose Route/Sig Max Daily Dose Days Date Category Novolog Flexpen (Insulin Aspart) 100 Unit/1 Ml Insuln.pen 3-7 SQ TIDACHC 02/07/21 Reported Lisinopril 5 Mg Tablet 1 Tab PO DAILY 02/07/21 Reported Lantus Solostar (Insulin Glargine,Hum.rec.anlog) 100 Unit/1 Ml Insuln.pen 5 Unit SQ QHS 04/09/15 Reported Atorvastatin Calcium 40 Mg Tablet 40 Mg PO HS 04/09/15 Reported Impression . IMPRESSION: 1. Acute hypoxic respiratory failure secondary to COVID-19 viral pneumonia/acute lung injury and early acute respiratory distress syndrome. S/P intubation 02/17/21 2. Nonsmoker. 3. Abnormal chest x-ray consistent with COVID-19 viral pneumonia.--- 4. Diabetic ketoacidosis 5. Underlying obesity contributing to hypoxia as well. 6. BOB worsening hemodialysis started 03/07 7. Fever, per ID 8. Abnormal chest x-ray with diffuse interstitial infiltrates compatible with viral pneumonia 9. [place] in the sputum is a contamination 10. Septic shock Venous Dopplers lower extremities Impression: No evidence of deep venous thrombosis bilateral lower extremity venous system. Plan . Updated 03/18 Continue current mechanical support Hemodialysis per Dr. Sims Nutritional support DVT GI prophylaxis 03/[address] Whitley Continue empiric antibiotics Finish course of remdesivir and dexamethasone Follow wound care Follow chest x-ray Continues to require nor epi, maintain mean of 3 of pressure above 60 Nutritional support DVT GI prophylaxis updated 03/16 Continue antibiotics per ID Hemodialysis today, negative fluid balance Status post remdesivir and dexamethasone Follow wound care input Prognosis poor Unable to titrate off norepinephrine Chest x-ray reviewed ABG noted updated 03/15 Discussed with RN, continue negative fluid balance doing dialysis Titrate off of norepinephrine Follow chest x-ray Tracheotomy next week Long-term prognosis is poor MONTEZ OROPEZA MD Mar 18, 2021 09:27
--- NOTE | 2021-03-18 09:38 | PDOC ---
Date of Service: DATE: 03/18/21 TIME: 09:34 Objective: Objective: D/w nurse - stable GI-kidd. Tolerating OG feeds @30cc/hr, stable rectal tube output, BP stable. Tmax 100.4 Vital Signs: Vital Signs Date Time Temp Pulse Resp B/P (MAP) Pulse Ox O2 Delivery O2 Flow Rate FiO2 03/18/21 09:26 97 Ventilator 03/18/21 08:00 100.4 96 24 142/86 (104) 100.4 03/17/21 22:33 50.0 Labs: Laboratory Tests Test 03/17/21 13:03 03/17/21 17:23 03/17/21 23:23 03/18/21 05:54 Glucose (Fingerstick) 192 mg/dL 122 mg/dL 213 mg/dL 179 mg/dL Test 03/18/21 05:55 03/18/21 08:00 White Blood Count 12.5 x10^3/uL Red Blood Count 2.53 x10^6/uL Hemoglobin 7.5 g/dL Hematocrit 22.2 % Mean Corpuscular Volume 88 fL Mean Corpuscular Hemoglobin 30 pg Mean Corpuscular Hemoglobin Concent 34 g/dL Red Cell Distribution Width 14.6 % Platelet Count 157 x10^3/uL Neutrophils (%) (Auto) 82 % Lymphocytes (%) (Auto) 8 % Monocytes (%) (Auto) 3 % Eosinophils (%) (Auto) 8 % Basophils (%) (Auto) 0 % Neutrophils # (Auto) 10.2 x10^3/uL Lymphocytes # (Auto) 0.9 x10^3/uL Monocytes # (Auto) 0.3 x10^3/uL Eosinophils # (Auto) 1.0 x10^3/uL Basophils # (Auto) 0.0 x10^3/uL Sodium Level 133 mmol/L Potassium Level 4.1 mmol/L Chloride Level 96 mmol/L Carbon Dioxide Level 26 mmol/L Anion Gap 11 Blood Urea Nitrogen 23 mg/dL Creatinine 3.6 mg/dL Estimated GFR (Cockcroft-Gault) 13.7 Glucose Level 185 mg/dL Calcium Level 7.8 mg/dL O2 Saturation 90 % Arterial Blood pH 7.41 Arterial Blood pCO2 at Patient Temp 34 mmHg Arterial Blood pO2 at Patient Temp 62 mmHg Arterial Blood HCO3 21 mmol/L Arterial Blood Base Excess -4 mmol/L FiO2 45% vent GRAM STAIN EVALUATION Final Final This specimen is of good quality and is acceptable for routine bacterial culture. Culture results to follow. NO ORGANISMS SEEN. SQUAMOUS EPI CELL:RARE PMN (WBCs):MODERATE Unless otherwise specified, Testing Performed by: [facility] [address] [place] [address] For Inquires, the Physician may contact the Microbiology department at [phone] RESPIRATORY CULTURE PENDING Imaging: CXR 03/18 IMPRESSION: 1. New tracheostomy tube in appropriate position. Other lines and tubes unchanged. 2. Unchanged diffuse bilateral airspace opacities, which may reflect ARDS/edema, or multifocal pneumonia. PE: GEN: generalized edema LUNGS: trach/vent HEART: RRR ABD: quiet BS, anasarca NEURO/PSYCH: sedated A/P: COVID-19 w/ resp and renal failure, s/p tracheostomy ACD -- Will review possible PEG w/ Dr. Justice. Justicifation of Admission Dx: Justifications for Admission: Justification of Admission Dx: N/A JANELLE MONTENEGRO Mar 18, 2021 09:38
--- NOTE | 2021-03-18 10:31 | PDOC ---
Renal-Progress Notes Subjective Notes Notes REMAINS ON THE VENT History of Present Illness Hx of present illness NO ACUTE CHANGES Vitals Vitals Vital Signs Date Time Temp Pulse Resp B/P (MAP) Pulse Ox O2 Delivery O2 Flow Rate FiO2 03/18/21 09:26 97 Ventilator 03/18/21 09:00 86 24 109/61 (77) 03/18/21 08:00 100.4 100.4 03/17/21 22:33 50.0 Weight Weight [ ] I.O. Intake and Output Intake and Output 03/18/21 07:00 Intake Total 4052 ml Output Total 0 ml Balance 4052 ml IV Total 2501 ml Tube Feeding 1201 ml Other 350 ml Output Urine Total 0 ml Labs Labs Laboratory Tests Test 03/17/21 13:03 03/17/21 17:23 03/17/21 23:23 03/18/21 05:54 Glucose (Fingerstick) 192 mg/dL (70-99) 122 mg/dL (70-99) 213 mg/dL (70-99) 179 mg/dL (70-99) Test 03/18/21 05:55 03/18/21 08:00 White Blood Count 12.5 x10^3/uL (4.0-11.0) Red Blood Count 2.53 x10^6/uL (3.50-5.40) Hemoglobin 7.5 g/dL (12.0-15.5) Hematocrit 22.2 % (36.0-47.0) Mean Corpuscular Volume 88 fL (79-100) Mean Corpuscular Hemoglobin 30 pg (25-35) Mean Corpuscular Hemoglobin Concent 34 g/dL (31-37) Red Cell Distribution Width 14.6 % (11.5-14.5) Platelet Count 157 x10^3/uL (140-400) Neutrophils (%) (Auto) 82 % (31-73) Lymphocytes (%) (Auto) 8 % (24-48) Monocytes (%) (Auto) 3 % (0-9) Eosinophils (%) (Auto) 8 % (0-3) Basophils (%) (Auto) 0 % (0-3) Neutrophils # (Auto) 10.2 x10^3/uL (1.8-7.7) Lymphocytes # (Auto) 0.9 x10^3/uL (1.0-4.8) Monocytes # (Auto) 0.3 x10^3/uL (0.0-1.1) Eosinophils # (Auto) 1.0 x10^3/uL (0.0-0.7) Basophils # (Auto) 0.0 x10^3/uL (0.0-0.2) Sodium Level 133 mmol/L (136-145) Potassium Level 4.1 mmol/L (3.5-5.1) Chloride Level 96 mmol/L (98-107) Carbon Dioxide Level 26 mmol/L (21-32) Anion Gap 11 (6-14) Blood Urea Nitrogen 23 mg/dL (7-20) Creatinine 3.6 mg/dL (0.6-1.0) Estimated GFR (Cockcroft-Gault) 13.7 Glucose Level 185 mg/dL (70-99) Calcium Level 7.8 mg/dL (8.5-10.1) O2 Saturation 90 % (92-99) Arterial Blood pH 7.41 (7.35-7.45) Arterial Blood pCO2 at Patient Temp 34 mmHg (35-46) Arterial Blood pO2 at Patient Temp 62 mmHg (75-108) Arterial Blood HCO3 21 mmol/L (21-28) Arterial Blood Base Excess -4 mmol/L (-3-3) FiO2 45% vent Micro Micro Microbiology 03/16/21 Gram Stain Evaluation - Final, Resulted 03/16/21 Respiratory Culture, Resulted Pending 03/16/21 Blood Culture - Preliminary, Resulted NO GROWTH AFTER 1 DAY 03/04/21 Urine Culture - Final, Complete Review of Systems Constitutional: yes: unresponsive Physical Exam General Appearance: no apparent distress Skin: warm Respiratory: decreased breath sounds Heart: S1S2 Abdomen: soft, bowel sounds present Extremities: pulses present Neurology: alert Assessment Assessment IMP [id number] HEMATURIA GLUCOSURIA MET AND RESP ACIDOSIS WITH ACIDEMIA COVID 19 PNEUMONIA ACUTE RESP FAILURE DM II HTN OBESITY ANEMIA GENERALIZED EDEMA LEUCOCYTOSIS PLAN HD AGAIN TODAY UF TOLERATED-4.0 LITERS ALBUMIN PRE DIALYSIS MONITOR FOR RENAL RECOVERY CONTROL BG ANTIBIOTICS ID EVAL AND TX CONT TF DECREASE WATER FLUSHES WILL AVOID DOYLE DUE TO THROMBOGENIC STATE VENT SUPPORT WILL FOLLOW COLLIN ROLON MD Mar 18, 2021 10:31
[2021-03-18] MEDS ORDERED: IV NORMAL SALINE 1000ML BAG 1,000 ML IV PRN ×2 (11:00)
[2021-03-18] MEDS ORDERED: ALBUMIN HUMAN 25% 200 ML IV PRN (11:00)
[2021-03-18] MEDS ORDERED: DIALYSIS PATIENT. MC PRN ×2 (11:00)
[2021-03-18] MEDS: MIDAZOLAM 100mg/100ml NS BAG 100 ML IV PRN ×2 (11:55→20:25)
[2021-03-18] MEDS: ACETAMINOPHEN 650 MG/20.3 ML SOLUTION. PEG PRN ×2 (12:05→20:19)
--- NOTE | 2021-03-18 17:34 | NUR ---
Wound/Ostomy Care Wound Type/Assessment: Wound care follow up for buttocks PU. Per Mesfin RN, pt has been unable to be turned in the last couple of day d/t oxygenation status. Wound appears to be detiriorating with darken/sloughy wound bed now and maceration noted along the buttock cleft.. Pt continues to be very edematous and skin is taut. Pt was able to be turned today just enough to remove dirty lines and apply A&D ointment to buttocks, photo was taken but unable to obtained measurement. Pt left turned to her left side per VANESA Toure request. POC discussed with him Treatment Recommendations/Plan: Cleanse buttocks and apply therahoney gel and A&D ointment mixed to wound, apply daily and prn if pt is stable enough to turn. Education provided: Pt intubated, unable to educate Offloading surface/device: TQ2H, float heels if pt is stable enough to tolerate Recommended Referrals/Tests: na Discharge Recommendations for dressings: same as above.
[2021-03-18] MEDS: MEROPENEM 1 GM in IV NORMAL SALINE 100ML 100 ML IV SCH (17:36)
[2021-03-18] MEDS: VITS A & D/LANOLIN TOPICAL OINTMENT 42GM TUBE. TP PRN (20:19)
[2021-03-18] MEDS: ATORVASTATIN CALCIUM 40 MG TABLET. PO SCH (20:58)
[2021-03-19] VITALS (25 sets, daily range): BP systolic 70–199; BP diastolic 11–94
[2021-03-19] MEDS: INSULIN LISPRO 300 UNITS/3 ML VIAL. SQ SCH ×4 (00:10→18:00)
[2021-03-19] MEDS: fentaNYL HIGH DOSE PCA 55 ML IV PRN (00:38)
[2021-03-19] MEDS: PROPOFOL 100 ML IV PRN ×4 (00:44→21:34)
[2021-03-19] MEDS: DEXMEDETOMIDINE 400 MCG in IV NORMAL SALINE 100ML 96 ML IV PRN ×7 (02:43→22:54)
[2021-03-19] MEDS: HEPARIN for SUB-Q USE 5,000 UNIT/ML VIAL. SQ SCH ×3 (07:08→22:34)
[2021-03-19 07:19] LABS: BASO # 0.1 x10^3/uL (0.0-0.2); BASO % 1 % (0-3); EOS % 9 % (0-3); LYMPH # 1.3 x10^3/uL (1.0-4.8); LYMPH % 13 % (24-48); MEAN CORPUSCULAR HEMOGLOBIN 30 pg (25-35); MEAN CORPUSCULAR HGB CONC 34 g/dL (31-37); MEAN CORPUSCULAR VOLUME 88 fL (79-100); MONO # 0.4 x10^3/uL (0.0-1.1); MONO % 4 % (0-9); NEUT % 74 % (31-73); PLATELET COUNT 146 x10^3/uL (140-400); RED BLOOD COUNT 2.32 x10^6/uL (3.50-5.40); RED CELL DISTRIBUTION WIDTH 14.6 % (11.5-14.5); WHITE BLOOD COUNT 10.8 x10^3/uL (4.0-11.0)
[2021-03-19 07:22] LABS: HEMATOCRIT 20.4 % (36.0-47.0)
[2021-03-19 07:32] LABS: CALCIUM 8.2 mg/dL (8.5-10.1); CREATININE 3.3 mg/dL (0.6-1.0); GFR 15.1; POTASSIUM 3.3 mmol/L (3.5-5.1)
--- NOTE | 2021-03-19 08:33 | PDOC ---
Infectious Disease Note Subjective Subjective Pt intubated sedated Status post tracheostomy ROS ROS No nausea vomiting diarrhea or fever Vital Sign Vital Signs Vital Signs Date Time Temp Pulse Resp B/P (MAP) Pulse Ox O2 Delivery O2 Flow Rate FiO2 03/19/21 07:50 96 Ventilator 03/19/21 06:00 56 24 112/57 (75) 03/19/21 05:00 99.0 99.0 03/19/21 00:38 50.0 Physical Exam PHYSICAL EXAM GENERAL: Intubated and sedated. Trach HEENT: Normocephalic, atraumatic. Anicteric. Bilateral periorbital edema. Neck right IJ HDC clean LUNGS: Rhonchi. HEART: S1, S2. No murmurs. ABDOMEN: Obese, soft. Bowel sounds present. Nontender, nondistended. Abdominal and mons pubis edema noted. GENITOURINARY: Kern and fecal tube in place. EXTREMITIES: Edema present no cyanosis. CENTRAL NERVOUS SYSTEM: Intubated. PSYCHIATRIC: Unable to assess. Derm has pressure wounds wound pictures noted in chart. Generalized rash, PICC line , right IJ HDC clean Labs Lab Laboratory Tests Test 03/18/21 11:57 03/18/21 17:55 03/19/21 00:09 03/19/21 06:35 Glucose (Fingerstick) 164 mg/dL (70-99) 112 mg/dL (70-99) 132 mg/dL (70-99) White Blood Count 10.8 x10^3/uL (4.0-11.0) Red Blood Count 2.32 x10^6/uL (3.50-5.40) Hemoglobin 7.0 g/dL (12.0-15.5) Hematocrit 20.4 % (36.0-47.0) Mean Corpuscular Volume 88 fL (79-100) Mean Corpuscular Hemoglobin 30 pg (25-35) Mean Corpuscular Hemoglobin Concent 34 g/dL (31-37) Red Cell Distribution Width 14.6 % (11.5-14.5) Platelet Count 146 x10^3/uL (140-400) Neutrophils (%) (Auto) 74 % (31-73) Lymphocytes (%) (Auto) 13 % (24-48) Monocytes (%) (Auto) 4 % (0-9) Eosinophils (%) (Auto) 9 % (0-3) Basophils (%) (Auto) 1 % (0-3) Neutrophils # (Auto) 8.0 x10^3/uL (1.8-7.7) Lymphocytes # (Auto) 1.3 x10^3/uL (1.0-4.8) Monocytes # (Auto) 0.4 x10^3/uL (0.0-1.1) Eosinophils # (Auto) 1.0 x10^3/uL (0.0-0.7) Basophils # (Auto) 0.1 x10^3/uL (0.0-0.2) Sodium Level 135 mmol/L (136-145) Potassium Level 3.3 mmol/L (3.5-5.1) Chloride Level 97 mmol/L (98-107) Carbon Dioxide Level 27 mmol/L (21-32) Anion Gap 11 (6-14) Blood Urea Nitrogen 20 mg/dL (7-20) Creatinine 3.3 mg/dL (0.6-1.0) Estimated GFR (Cockcroft-Gault) 15.1 Glucose Level 175 mg/dL (70-99) Calcium Level 8.2 mg/dL (8.5-10.1) Test 03/19/21 06:42 Glucose (Fingerstick) 167 mg/dL (70-99) Micro GRAM STAIN EVALUATION Final Final This specimen is of good quality and is acceptable for routine bacterial culture. Culture results to follow. NO ORGANISMS SEEN. SQUAMOUS EPI CELL:RARE PMN (WBCs):MODERATE Unless otherwise specified, Testing Performed by: [address] [address] For Inquires, the Physician may contact the Microbiology department at [phone] RESPIRATORY CULTURE Preliminary Preliminary MODERATE GRAM NEGATIVE RODS on 03/18/21 at 1120 FINAL ID= [ACINETOBACTER [id number].] ACINETOBACTER URSINGII. Unless otherwise specified, Testing Performed by: [address] [id number] For Inquires, the Physician may contact the Microbiology department at [phone] Objective Assessment 1. Febrile illness. Improved 2. COVID-19 infection present on date of admission, 02/06/2021. Status post remdesivir, dexamethasone. 3. Acute hypoxic respiratory failure, status post intubation. Trach cultures positive for [place] albicans 4. Diabetes. 5. Diarrhea. 6. Hypertension. 7. Hyperlipidemia. 8. Anemia. 9. BOB on HD 10.UC [place], ua neg Plan Plan of Care Meropenem Follow-up lab ,cultures, C. diff PCR negative Kern changed per team Wound care per wound treatment Offload Continue supportive care. Prognosis guarded. D/W BLANCA CURIEL MD Mar 19, 2021 08:33
[2021-03-19 09:19] LABS: BASE EXCESS ABG 1 mmol/L (-3-3); HCO3 ABG 25 mmol/L (21-28); PCO2 ABG 33 mmHg (35-46); PO2 ABG 108 mmHg (75-108); SAT O2 ABG 98 % (92-99)
--- NOTE | 2021-03-19 09:31 | PDOC ---
PULMONARY PROGRESS NOTES DATE: 03/19/21 TIME: 09:30 Subjective Discussed with RN no overnight events Currently on 45% 6 of PEEP Vitals Vital Signs Date Time Temp Pulse Resp B/P (MAP) Pulse Ox O2 Delivery O2 Flow Rate FiO2 03/19/21 07:50 96 Ventilator 03/19/21 06:00 56 24 112/57 (75) 03/19/21 05:00 99.0 99.0 03/19/21 00:38 50.0 Lungs: Clear Cardiovascular: S1 Abdomen: Soft Skin: Warm Labs Laboratory Tests Test 03/17/21 13:03 03/17/21 17:23 03/17/21 23:23 03/18/21 05:54 Glucose (Fingerstick) 192 mg/dL (70-99) 122 mg/dL (70-99) 213 mg/dL (70-99) 179 mg/dL (70-99) Test 03/18/21 05:55 03/18/21 08:00 03/18/21 11:57 03/18/21 17:55 White Blood Count 12.5 x10^3/uL (4.0-11.0) Red Blood Count 2.53 x10^6/uL (3.50-5.40) Hemoglobin 7.5 g/dL (12.0-15.5) Hematocrit 22.2 % (36.0-47.0) Mean Corpuscular Volume 88 fL (79-100) Mean Corpuscular Hemoglobin 30 pg (25-35) Mean Corpuscular Hemoglobin Concent 34 g/dL (31-37) Red Cell Distribution Width 14.6 % (11.5-14.5) Platelet Count 157 x10^3/uL (140-400) Neutrophils (%) (Auto) 82 % (31-73) Lymphocytes (%) (Auto) 8 % (24-48) Monocytes (%) (Auto) 3 % (0-9) Eosinophils (%) (Auto) 8 % (0-3) Basophils (%) (Auto) 0 % (0-3) Neutrophils # (Auto) 10.2 x10^3/uL (1.8-7.7) Lymphocytes # (Auto) 0.9 x10^3/uL (1.0-4.8) Monocytes # (Auto) 0.3 x10^3/uL (0.0-1.1) Eosinophils # (Auto) 1.0 x10^3/uL (0.0-0.7) Basophils # (Auto) 0.0 x10^3/uL (0.0-0.2) Sodium Level 133 mmol/L (136-145) Potassium Level 4.1 mmol/L (3.5-5.1) Chloride Level 96 mmol/L (98-107) Carbon Dioxide Level 26 mmol/L (21-32) Anion Gap 11 (6-14) Blood Urea Nitrogen 23 mg/dL (7-20) Creatinine 3.6 mg/dL (0.6-1.0) Estimated GFR (Cockcroft-Gault) 13.7 Glucose Level 185 mg/dL (70-99) Calcium Level 7.8 mg/dL (8.5-10.1) O2 Saturation 90 % (92-99) Arterial Blood pH 7.41 (7.35-7.45) Arterial Blood pCO2 at Patient Temp 34 mmHg (35-46) Arterial Blood pO2 at Patient Temp 62 mmHg (75-108) Arterial Blood HCO3 21 mmol/L (21-28) Arterial Blood Base Excess -4 mmol/L (-3-3) FiO2 45% vent Glucose (Fingerstick) 164 mg/dL (70-99) 112 mg/dL (70-99) Test 03/19/21 00:09 03/19/21 06:35 03/19/21 06:42 Glucose (Fingerstick) 132 mg/dL (70-99) 167 mg/dL (70-99) White Blood Count 10.8 x10^3/uL (4.0-11.0) Red Blood Count 2.32 x10^6/uL (3.50-5.40) Hemoglobin 7.0 g/dL (12.0-15.5) Hematocrit 20.4 % (36.0-47.0) Mean Corpuscular Volume 88 fL (79-100) Mean Corpuscular Hemoglobin 30 pg (25-35) Mean Corpuscular Hemoglobin Concent 34 g/dL (31-37) Red Cell Distribution Width 14.6 % (11.5-14.5) Platelet Count 146 x10^3/uL (140-400) Neutrophils (%) (Auto) 74 % (31-73) Lymphocytes (%) (Auto) 13 % (24-48) Monocytes (%) (Auto) 4 % (0-9) Eosinophils (%) (Auto) 9 % (0-3) Basophils (%) (Auto) 1 % (0-3) Neutrophils # (Auto) 8.0 x10^3/uL (1.8-7.7) Lymphocytes # (Auto) 1.3 x10^3/uL (1.0-4.8) Monocytes # (Auto) 0.4 x10^3/uL (0.0-1.1) Eosinophils # (Auto) 1.0 x10^3/uL (0.0-0.7) Basophils # (Auto) 0.1 x10^3/uL (0.0-0.2) Sodium Level 135 mmol/L (136-145) Potassium Level 3.3 mmol/L (3.5-5.1) Chloride Level 97 mmol/L (98-107) Carbon Dioxide Level 27 mmol/L (21-32) Anion Gap 11 (6-14) Blood Urea Nitrogen 20 mg/dL (7-20) Creatinine 3.3 mg/dL (0.6-1.0) Estimated GFR (Cockcroft-Gault) 15.1 Glucose Level 175 mg/dL (70-99) Calcium Level 8.2 mg/dL (8.5-10.1) Magnesium Level 2.2 mg/dL (1.8-2.4) Laboratory Tests Test 03/18/21 11:57 03/18/21 17:55 03/19/21 00:09 03/19/21 06:35 Glucose (Fingerstick) 164 mg/dL (70-99) 112 mg/dL (70-99) 132 mg/dL (70-99) White Blood Count 10.8 x10^3/uL (4.0-11.0) Red Blood Count 2.32 x10^6/uL (3.50-5.40) Hemoglobin 7.0 g/dL (12.0-15.5) Hematocrit 20.4 % (36.0-47.0) Mean Corpuscular Volume 88 fL (79-100) Mean Corpuscular Hemoglobin 30 pg (25-35) Mean Corpuscular Hemoglobin Concent 34 g/dL (31-37) Red Cell Distribution Width 14.6 % (11.5-14.5) Platelet Count 146 x10^3/uL (140-400) Neutrophils (%) (Auto) 74 % (31-73) Lymphocytes (%) (Auto) 13 % (24-48) Monocytes (%) (Auto) 4 % (0-9) Eosinophils (%) (Auto) 9 % (0-3) Basophils (%) (Auto) 1 % (0-3) Neutrophils # (Auto) 8.0 x10^3/uL (1.8-7.7) Lymphocytes # (Auto) 1.3 x10^3/uL (1.0-4.8) Monocytes # (Auto) 0.4 x10^3/uL (0.0-1.1) Eosinophils # (Auto) 1.0 x10^3/uL (0.0-0.7) Basophils # (Auto) 0.1 x10^3/uL (0.0-0.2) Sodium Level 135 mmol/L (136-145) Potassium Level 3.3 mmol/L (3.5-5.1) Chloride Level 97 mmol/L (98-107) Carbon Dioxide Level 27 mmol/L (21-32) Anion Gap 11 (6-14) Blood Urea Nitrogen 20 mg/dL (7-20) Creatinine 3.3 mg/dL (0.6-1.0) Estimated GFR (Cockcroft-Gault) 15.1 Glucose Level 175 mg/dL (70-99) Calcium Level 8.2 mg/dL (8.5-10.1) Magnesium Level 2.2 mg/dL (1.8-2.4) Test 03/19/21 06:42 Glucose (Fingerstick) 167 mg/dL (70-99) Medications Active Scripts Medications Dose Route/Sig Max Daily Dose Days Date Category Novolog Flexpen (Insulin Aspart) 100 Unit/1 Ml Insuln.pen 3-7 SQ TIDACHC 02/07/21 Reported Lisinopril 5 Mg Tablet 1 Tab PO DAILY 02/07/21 Reported Lantus Solostar (Insulin Glargine,Hum.rec.anlog) 100 Unit/1 Ml Insuln.pen 5 Unit SQ QHS 04/09/15 Reported Atorvastatin Calcium 40 Mg Tablet 40 Mg PO HS 04/09/15 Reported Impression . IMPRESSION: 1. Acute hypoxic respiratory failure secondary to COVID-19 viral pneumonia/acute lung injury and early acute respiratory distress syndrome. S/P intubation 02/17/21 2. Nonsmoker. 3. Abnormal chest x-ray consistent with COVID-19 viral pneumonia.--- 4. Diabetic ketoacidosis 5. Underlying obesity contributing to hypoxia as well. 6. BOB worsening hemodialysis started 03/07 7. Fever, per ID 8. Abnormal chest x-ray with diffuse interstitial infiltrates compatible with viral pneumonia 9. [place] in the sputum is a contamination 10. Septic shock Venous Dopplers lower extremities Impression: No evidence of deep venous thrombosis bilateral lower extremity venous system. Plan . Updated 03/[address] Whitley On exam she appears to be less puffy Finish course of remdesivir and dexamethasone Hemodialysis DVT GI prophylaxis Off pressors Chest x-ray reviewed, no significant change, 03/18 updated 03/18 Continue current mechanical support Hemodialysis per Dr. Sims Nutritional support DVT GI prophylaxis 03/[address] Whitley Continue empiric antibiotics Finish course of remdesivir and dexamethasone Follow wound care Follow chest x-ray Continues to require nor epi, maintain mean of 3 of pressure above 60 Nutritional support DVT GI prophylaxis updated 03/16 Continue antibiotics per ID Hemodialysis today, negative fluid balance Status post remdesivir and dexamethasone Follow wound care input Prognosis poor Unable to titrate off norepinephrine Chest x-ray reviewed ABG noted MONTEZ OROPEZA MD Mar 19, 2021 09:31
[2021-03-19] MEDS: FAMOTIDINE 20 MG/2 ML VIAL IVP SCH (10:04)
[2021-03-19] MEDS: DOCUSATE 100 MG/10 ML SOLUTION. PO SCH ×2 (10:04→21:00)
[2021-03-19] MEDS: MULTIVITAMINS,THERAPEUTIC 5 ML ORAL LIQUID. PEG SCH (10:04)
[2021-03-19] MEDS: MIDAZOLAM 100mg/100ml NS BAG 100 ML IV PRN ×2 (10:05→16:33)
[2021-03-19] MEDS: NYSTATIN TOPICAL POWDER 15GM BOTTLE. TP SCH ×2 (10:08→20:42)
[2021-03-19] MEDS: INSULIN GLARGINE SYRINGE. SQ SCH ×2 (10:08→20:32)
--- NOTE | 2021-03-19 10:24 | PDOC ---
Renal-Progress Notes Subjective Notes Notes REMAINS ON THE VENT History of Present Illness Hx of present illness STILL CRITICALLY ILL Vitals Vitals Vital Signs Date Time Temp Pulse Resp B/P (MAP) Pulse Ox O2 Delivery O2 Flow Rate FiO2 03/19/21 09:49 97 Ventilator 03/19/21 06:00 56 24 112/57 (75) 03/19/21 05:00 99.0 99.0 03/19/21 00:38 50.0 Weight Weight [ ] I.O. Intake and Output Intake and Output 03/19/21 07:00 Intake Total 2709 ml Output Total 30 ml Balance 2679 ml IV Total 1503 ml Tube Feeding 1206 ml Output Urine Total 30 ml Gastric Drainage Total 0 ml Labs Labs Laboratory Tests Test 03/18/21 11:57 03/18/21 17:55 03/19/21 00:09 03/19/21 06:35 Glucose (Fingerstick) 164 mg/dL (70-99) 112 mg/dL (70-99) 132 mg/dL (70-99) White Blood Count 10.8 x10^3/uL (4.0-11.0) Red Blood Count 2.32 x10^6/uL (3.50-5.40) Hemoglobin 7.0 g/dL (12.0-15.5) Hematocrit 20.4 % (36.0-47.0) Mean Corpuscular Volume 88 fL (79-100) Mean Corpuscular Hemoglobin 30 pg (25-35) Mean Corpuscular Hemoglobin Concent 34 g/dL (31-37) Red Cell Distribution Width 14.6 % (11.5-14.5) Platelet Count 146 x10^3/uL (140-400) Neutrophils (%) (Auto) 74 % (31-73) Lymphocytes (%) (Auto) 13 % (24-48) Monocytes (%) (Auto) 4 % (0-9) Eosinophils (%) (Auto) 9 % (0-3) Basophils (%) (Auto) 1 % (0-3) Neutrophils # (Auto) 8.0 x10^3/uL (1.8-7.7) Lymphocytes # (Auto) 1.3 x10^3/uL (1.0-4.8) Monocytes # (Auto) 0.4 x10^3/uL (0.0-1.1) Eosinophils # (Auto) 1.0 x10^3/uL (0.0-0.7) Basophils # (Auto) 0.1 x10^3/uL (0.0-0.2) Sodium Level 135 mmol/L (136-145) Potassium Level 3.3 mmol/L (3.5-5.1) Chloride Level 97 mmol/L (98-107) Carbon Dioxide Level 27 mmol/L (21-32) Anion Gap 11 (6-14) Blood Urea Nitrogen 20 mg/dL (7-20) Creatinine 3.3 mg/dL (0.6-1.0) Estimated GFR (Cockcroft-Gault) 15.1 Glucose Level 175 mg/dL (70-99) Calcium Level 8.2 mg/dL (8.5-10.1) Magnesium Level 2.2 mg/dL (1.8-2.4) Test 03/19/21 06:42 03/19/21 07:45 Glucose (Fingerstick) 167 mg/dL (70-99) O2 Saturation 98 % (92-99) Arterial Blood pH 7.49 (7.35-7.45) Arterial Blood pCO2 at Patient Temp 33 mmHg (35-46) Arterial Blood pO2 at Patient Temp 108 mmHg (75-108) Arterial Blood HCO3 25 mmol/L (21-28) Arterial Blood Base Excess 1 mmol/L (-3-3) FiO2 45/vent Micro Micro Microbiology 03/16/21 Gram Stain Evaluation - Final, Resulted 03/16/21 Respiratory Culture - Preliminary, Resulted 03/16/21 Blood Culture - Preliminary, Resulted NO GROWTH AFTER 2 DAYS 03/04/21 Urine Culture - Final, Complete Review of Systems Constitutional: yes: unresponsive Physical Exam General Appearance: no apparent distress Skin: warm Respiratory: decreased breath sounds Heart: S1S2 Abdomen: soft, bowel sounds present Extremities: pulses present Neurology: alert Assessment Assessment IMP [id number] HEMATURIA GLUCOSURIA MET AND RESP ACIDOSIS WITH ACIDEMIA COVID 19 PNEUMONIA ACUTE RESP FAILURE DM II HTN OBESITY ANEMIA GENERALIZED EDEMA LEUCOCYTOSIS HYPOKALEMIA PLAN HD AGAIN TODAY USE 4 K DIALYSATE UF TOLERATED-4.0 LITERS PRBC WITH HD AGAIN TODAY ALBUMIN PRE DIALYSIS AGAIN MONITOR FOR RENAL RECOVERY-STILL ANURIC CONTROL BG ANTIBIOTICS ID EVAL AND TX CONT TF AND WATER FLUSHES WILL AVOID DOYLE DUE TO THROMBOGENIC STATE VENT SUPPORT WILL FOLLOW COLLIN ROLON MD Mar 19, 2021 10:24
--- NOTE | 2021-03-19 10:38 | PDOC ---
[facility] PROGRESS NOTE Date of Service DOS: DATE: 03/19/21 TIME: 10:28 Chief Complaint Chief Complaint CC: Covid-19 DKA Hypotension Nausea Vomiting Combined metabolic and respiratory acidosis Acute electrolyte derangementhyponatremia, hypochloremia due to volume depletion Hyperglycemia BOB Erythrocytosis Candiduria Sacral decubitus ulcer History of Present Illness History of Present Illness Ms Borges is a 46 year old female who presented with nausea/vomiting since 7 AM 02/06/2021 in the morning. Patient stated that her recently tested positive for Covid. She states that he "coughed in my face because he thought it was funny." She reports subjective fevers and chills and nausea/vomiting. Denies sore throat, cough, shortness of breath. No chest pain. Does have some upper abdominal discomfort after vomiting, that she attributes to muscular strain. She was not vaccinated for Covid. 02/08: No acute events overnight. Patient seen and examined bedside and resting comfortably. Continues to complain of nausea not able to tolerate any diet at this time. Saturating 98% on room air. Patient's chart, labs, images were reviewed and discussed with RN 02/09: Afebrile, currently breathing on room air. Still with complaints of nausea and vomiting x3 today. States that she has history of similar symptoms that have been mildly improved with IV Dilaudid. 02/10: Patient febrile today with T-max 102.2 F. She still admits to nausea, denies any further vomiting. We will continue to provide supportive care and monitor for any recurrent fevers overnight. Patient continues to improve may discharge tomorrow to continue self-isolation. 02/11: Febrile overnight, T-max 102.3 F. She did become hypoxic overnight, currently breathing on 4 L nasal cannula. Also admits to associated vomiting or diarrhea overnight. Discussed with RN, will initiate remdesivir and closely monitor LFTs. IV Decadron, and prophylactic antibiotics. 02/12: Low-grade fever overnight, T-max 99.7. Currently breathing on room air. Will discontinue remdesivir, steroids, and antibiotics; will observe overnight. Still with complaints of vomiting x1 and diarrhea. We will continue to provide supportive care and hope to discharge in the next day or so. 02/13: Afebrile. Still complains of intermittent diarrhea. At the time of my evaluation she was breathing on 6 L nasal cannula; this is somewhat misleading as patient states that she did not feel short of breath but was placed on 6 L by nursing staff overnight. 02/14: Afebrile, currently breathing on 8 L nasal cannula. There has been some misleading documentation, chart oxygen this patient is requiring. Discussed with RN, will resume remdesivir to complete total of 5 days. Continue to monitor LFTs. Will add steroids, Rocephin, and azithromycin. 02/15: Afebrile. Became much more hypoxic overnight, requiring BiPAP. At the time of my evaluation she is still breathing on BiPAP. Consultation was placed to pulmonology. Had discussion with Dr. Myrick about initiating Tocilizumab 02/16: No acute events overnight. Patient becoming more hypoxic saturating 94% and requiring BiPAP. Patient will be transferred to the ICU at this time. For worsening clinical status. Discussed with pulmonary. Patient's chart, labs, images were reviewed and discussed with RN 02/17: Transferred to ICU yesterday afternoon. Seen and examined at bedside she remains on 100% FiO2 on BiPAP. Respirations do appear somewhat labored. Susp ect intubation may be impending. We will closely monitor. Increase lisinopril to 20 today. 02/18: Patient required intubation yesterday afternoon. Saw and examined this morning. She is intubated and sedated. Increase insulin today. Covid protocol ordered. Wean as tolerated. Plan of care discussed with bedside nurse. 02/19: Bedside. She remains intubated and sedated. Continue Covid protocol. Wean oxygen sedation as tolerated. Pulmonary following. Plan of care discussed with bedside RN. 02/20: Patient seen and examined at bedside. She remains intubated and sedated. No major clinical changes. Continue current treatment. Pulmonary following. Plan of care discussed with bedside RN. 02/21: Patient seen and examined at bedside. Remains intubated and sedated date and admission clinical changes. Increase free water flushes today due to hypernatremia. Plan of care discussed with bedside nurse. 02/22: Patient seen and examined at bedside. O2 requirement actually improving, although remains intubated. Possible SBT in the coming days. Hypernatremia improving. Plan of care discussed bedside RN. 02/23: Patient remains in ICU on ventilator with FiO2 100%, PEEP 7. Repeat chest x-ray yesterday showed diffuse bilateral pulmonary opacities with no interval improvement. Will discontinue Rocephin and initiate Zosyn. We will continue IV steroids for a full 10-day course 02/24: Afebrile. On vent with FiO2 40%, PEEP 6. Her Coreg has been held due to persistent bradycardia. No documented history of systolic heart failure or previous echocardiogram. Will need to obtain echocardiogram prior to discharge. Continue IV steroids and antibiotics. 02/25: Afebrile. Remains ventilated with FiO2 45%, PEEP 6. Chest x-ray today showed slight improvement of the pulmonary infiltrates, no pneumothorax. Completed 10-day course of IV Decadron. Will initiate slow Solu-Medrol taper. Continue IV Zosyn. Continue supportive care. 02/26: Afebrile. On vent with FiO2 45%, PEEP 6. Completed 10 days of IV Decadron. Will continue IV Zosyn. Continue supportive care. Critical care time 30 minutes spent reviewing charts, reviewing imaging, reviewing labs, discussion with RN. 02/27: Afebrile. On vent with FiO2 45%, PEEP 6. Completed 10 days of steroids and completed remdesivir. Continue with IV Zosyn. CPAP trial yesterday. Continue NG tube and supportive care. 02/28:. Patient remains on vent with FiO2 40%, PEEP 5. Afebrile. Completed steroids and remdesivir. Some noted hypoglycemia overnight, will de-escalate basal insulin. Continue IV Zosyn. Ventilator management per pulmonology. Continue NG tube and supportive care. 03/01: On vent with FiO2 40%, PEEP 5. Afebrile. Completed steroids and remdesivir. Blood glucose well controlled. Continue empiric antibiotics with Zosyn. Ventilator management per pulmonology. Continue NG tube and supportive care. 03/02: No acute events overnight. Patient hypotensive the morning due to oversedation. Will wean off sedation and keep antihypertensive medications on board. Currently saturating 100% on vent settings of 18/450/40/5. Will attempt spontaneous breathing trial today to see how patient does. 03/03: No acute events overnight. Patient saturating 98% on vent settings of 18/450/40/5. Will defer spontaneous breathing trials to pulmonary at this time. Patient's chart, labs, images were reviewed and discussed with RN 03/04: No acute events overnight. Patient saturating 9 9% on vent settings of 18/450/30/5. Patient currently is unable to tolerate weaning. Per pulmonary. Patient's chart, labs, images were reviewed and discussed with RN 8: No acute events overnight. Patient is saturating 97% on vent settings of 18/450/55/5. Her FiO2 needs to be increased due to abnormal ABG with 7.3 /58/24. Patient's chart, labs, images were reviewed and discussed with RN 8: No acute events overnight. Patient saturating 94% on vent settings of 18/450/55/5. Chest x-ray showing increase in pulmonary infiltrates. Wound care is consulted for decubitus ulcer patient's chart, labs, images were reviewed and discussed with RN 8: No acute events overnight. Patient saturating 94% on vent settings of 20/450/70/8. Patient now heading into renal failure with her creatinine bumped up from 1.5-4.2. Decreased urine output. Plan for hemodialysis today and temporary catheter placement and nephrology is consulted. 03/08: No acute events overnight. Patient did have a nausea vomiting episode and tube feeds were held. KUB repeat shows NG tube still in the stomach. Will resume tube feeds at trickle and advance to goal today. Will start hemodialysis soon. 03/09: Seen on vent 20/450/60%/8. ABG 7.2 WBC 11.4, Hb 7.4, platelets 188, NA 131, K4.9, BUN 48, CR 51, glucose 199, phosphorus 7.9, mag 2.2, AST 265 ALT 219, albumin 1.1. Chest radiograph appears unchanged from prior. Dialysis x1 today 03/10: Afebrile. Seen on vent, 20/450/60/7 with ABG 7.3 . Tolerated dialysis well on 03/09. LFTs similar. 03/11: Afebrile. Seen on vent, sedated. Still requiring Levophed for BP support. WBC 16.7, Hb 8.1, NA 130, ABG 7.3 on 55% FiO2 PEEP 6. On Zosyn and Zyvox Diflucan. Dialysis today 03/12: Afebrile. Still requiring Levophed for BP support sedated with Versed febrile Precedex. WBC 16.1, Hb 8.5, platelets 185, NA 133. Trach plan tentatively 03/17. O2 saturations 93% on 50% FiO2 PEEP 6. ABG 7.38/35/79 On Zosyn and Zyvox Diflucan. 03/13: Afebrile. Still on Levophed for BP support lightly sedated. 7./ on 45% FiO2. Plan for dialysis today. On Zosyn and Zyvox Diflucan. More swollen today. 03/14: Afebrile. Weaning down off Levophed. WBC 14.9 NA 132. O2 saturations 92% on 45% FiO2 PEEP 5. Afebrile. O2 saturations 91% on FiO2 45% PEEP 6. Continued on Zosyn and Zyvox Diflucan. Tentative trach planned 03/17/2021 CC time 31 minutes 03/16/21: Patient seen and examined in ICU. Periorbital as well as upper and lower extremity edema noted. OG feed running at 30cc/hr. Still on vent on pressure control with a rate of 24 with 45% FiO2. Patient has rectal bag. Currently she has 98% O2 sat. Currently sedated with Dexmedetomidine, Propofol, Versed, and Fentanyl. Discussed with RN. Chart reviewed. 03/17/21: Patient was seen and examined in the ICU today. Periorbital edema as well as abdominal and mons pubis edema was noted. Patient still on vent on pressure control with Fi02 of 45% plus 6 PEEP. Patient had rectal bag. Currently sedated on Dexmedetomidine, Propofol, Versed, and Fentanyl. Discussed with RN. Chart reviewed. 03/18/21: Patient seen and examined in ICU. On vent via trach that was placed yesterday. Vent settings are Pressure Control of 40 with FiO2 of 45% and 6 PEEP. Trach clean and dry. Orbital swelling still present. Pupils are sluggish. Patient on TPN running at 30cc/hr. Kern to bedside and rectal bag in place. Current O2 sat at 94%. Sedated on Dexmedetomidine, Propofol, Versed, and Fentanyl. Discussed with RN. Chart reviewed. 03/19/21: Patient was seen and examined in the ICU today. Currently on vent via trach on pressure control of 42, rate of 24, FiO2 of 45%, and 6 PEEP. O2 sat is at 97% while patient is being examined. Trach is clean and dry. PICC line is in place on right arm. Periorbital swelling has decreased slightly since examined yesterday. Patient is sedated on Dexmedetomidine, Propofol, Versed, and Fentanyl. Discussed with RN. Chart reviewed. Vitals/I&O Vitals/I&O: Vital Signs Date Time Temp Pulse Resp B/P (MAP) Pulse Ox O2 Delivery O2 Flow Rate FiO2 03/19/21 09:49 97 Ventilator 03/19/21 06:00 56 24 112/57 (75) 03/19/21 05:00 99.0 99.0 03/19/21 00:38 50.0 I & O 03/18/21 03/18/21 03/19/21 15:00 23:00 07:00 Intake Total 200 ml 1334 ml 1175 ml Output Total 25 ml 5 ml Balance 200 ml 1309 ml 1170 ml Physical Exam Physical Exam: GENERAL: Intubated and sedated. Trach HEENT: Normocephalic, atraumatic. Anicteric. Slight bilateral periorbital edema. Neck right IJ HDC clean LUNGS: Rhonchi. HEART: S1, S2. No murmurs. ABDOMEN: Obese, soft. Bowel sounds present. Nontender, nondistended. Abdominal and mons pubis edema noted. GENITOURINARY: Kern and fecal tube in place. EXTREMITIES: Edema present no cyanosis. CENTRAL NERVOUS SYSTEM: Intubated. PSYCHIATRIC: Unable to assess. Derm has pressure wounds wound pictures noted in chart. Generalized rash, PICC line , right IJ HDC clean General: Other (SEDATED) Heart: Regular rate, Normal S1, Normal S2, No murmurs, Gallops Lungs: Clear Abdomen: Normal bowel sounds, Soft, No tenderness, No hepatosplenomegaly, No masses Extremities: Other (ANASARCA) Skin: No rashes, No significant lesion Labs Labs: Laboratory Tests Test 03/18/21 11:57 03/18/21 17:55 03/19/21 00:09 03/19/21 06:35 Glucose (Fingerstick) 164 mg/dL (70-99) 112 mg/dL (70-99) 132 mg/dL (70-99) White Blood Count 10.8 x10^3/uL (4.0-11.0) Red Blood Count 2.32 x10^6/uL (3.50-5.40) Hemoglobin 7.0 g/dL (12.0-15.5) Hematocrit 20.4 % (36.0-47.0) Mean Corpuscular Volume 88 fL (79-100) Mean Corpuscular Hemoglobin 30 pg (25-35) Mean Corpuscular Hemoglobin Concent 34 g/dL (31-37) Red Cell Distribution Width 14.6 % (11.5-14.5) Platelet Count 146 x10^3/uL (140-400) Neutrophils (%) (Auto) 74 % (31-73) Lymphocytes (%) (Auto) 13 % (24-48) Monocytes (%) (Auto) 4 % (0-9) Eosinophils (%) (Auto) 9 % (0-3) Basophils (%) (Auto) 1 % (0-3) Neutrophils # (Auto) 8.0 x10^3/uL (1.8-7.7) Lymphocytes # (Auto) 1.3 x10^3/uL (1.0-4.8) Monocytes # (Auto) 0.4 x10^3/uL (0.0-1.1) Eosinophils # (Auto) 1.0 x10^3/uL (0.0-0.7) Basophils # (Auto) 0.1 x10^3/uL (0.0-0.2) Sodium Level 135 mmol/L (136-145) Potassium Level 3.3 mmol/L (3.5-5.1) Chloride Level 97 mmol/L (98-107) Carbon Dioxide Level 27 mmol/L (21-32) Anion Gap 11 (6-14) Blood Urea Nitrogen 20 mg/dL (7-20) Creatinine 3.3 mg/dL (0.6-1.0) Estimated GFR (Cockcroft-Gault) 15.1 Glucose Level 175 mg/dL (70-99) Calcium Level 8.2 mg/dL (8.5-10.1) Magnesium Level 2.2 mg/dL (1.8-2.4) Test 03/19/21 06:42 03/19/21 07:45 Glucose (Fingerstick) 167 mg/dL (70-99) O2 Saturation 98 % (92-99) Arterial Blood pH 7.49 (7.35-7.45) Arterial Blood pCO2 at Patient Temp 33 mmHg (35-46) Arterial Blood pO2 at Patient Temp 108 mmHg (75-108) Arterial Blood HCO3 25 mmol/L (21-28) Arterial Blood Base Excess 1 mmol/L (-3-3) FiO2 45/vent Review of Systems Review of Systems: GI: no nausea. no vomiting. Eyes: no changes in vision. no blurry vision. Assessment and Plan Assessmemt and Plan Problems Medical Problems: (1) Ketoacidosis Status: Acute Covid-19 DKA Hypotension Nausea Vomiting Combined metabolic and respiratory acidosis Acute electrolyte derangementhyponatremia, hypochloremia due to volume depletion Hyperglycemia BOB Erythrocytosis Candiduria Sacral decubitus ulcer Plan: 1. Changing to Dobhoff today for feeding 2. ICU monitoring 3. Trying to wean off Levophed 4. Vent weaning 5. Continue sedation (Dexmedetomidine, Propofol, Versed, Fentanyl) 6. Trend labs 7. Full code 8. DVT prophylaxis 9. Appreciate subspecialist input 10. Prognosis guarded (I am concerned she may not survive) CC time 32 minutes Comment Review of Relevant I have reviewed the following items mazin (where applicable) has been applied. Medications: Current Medications Medications (Trade) Dose Ordered Sig/Pepe Route PRN Reason Start Time Stop Time Status Last Admin Dose Admin Albumin Human 200 ml @ 200 mls/hr 1X PRN PRN IV Hypotension 03/18/21 11:00 03/18/21 16:59 DC 03/18/21 12:49 Meropenem 1 gm/ Sodium Chloride 100 ml @ 200 mls/hr Q24H IV 03/18/21 17:00 03/18/21 17:36 Justifications for Admission Other Justification DIANELYS BLACKMON III DO Mar 19, 2021 10:38
--- NOTE | 2021-03-19 11:45 | PDOC ---
Date of Service: DATE: 03/19/21 TIME: 11:42 Objective: Objective: D/w nurse - plans to place Dobhoff, has been tolerating tube feeds. Vital Signs: Vital Signs Date Time Temp Pulse Resp B/P (MAP) Pulse Ox O2 Delivery O2 Flow Rate FiO2 03/19/21 09:49 97 Ventilator 03/19/21 06:00 56 24 112/57 (75) 03/19/21 05:00 99.0 99.0 03/19/21 00:38 50.0 Labs: Laboratory Tests Test 03/18/21 11:57 03/18/21 17:55 03/19/21 00:09 03/19/21 06:35 Glucose (Fingerstick) 164 mg/dL 112 mg/dL 132 mg/dL White Blood Count 10.8 x10^3/uL Red Blood Count 2.32 x10^6/uL Hemoglobin 7.0 g/dL Hematocrit 20.4 % Mean Corpuscular Volume 88 fL Mean Corpuscular Hemoglobin 30 pg Mean Corpuscular Hemoglobin Concent 34 g/dL Red Cell Distribution Width 14.6 % Platelet Count 146 x10^3/uL Neutrophils (%) (Auto) 74 % Lymphocytes (%) (Auto) 13 % Monocytes (%) (Auto) 4 % Eosinophils (%) (Auto) 9 % Basophils (%) (Auto) 1 % Neutrophils # (Auto) 8.0 x10^3/uL Lymphocytes # (Auto) 1.3 x10^3/uL Monocytes # (Auto) 0.4 x10^3/uL Eosinophils # (Auto) 1.0 x10^3/uL Basophils # (Auto) 0.1 x10^3/uL Sodium Level 135 mmol/L Potassium Level 3.3 mmol/L Chloride Level 97 mmol/L Carbon Dioxide Level 27 mmol/L Anion Gap 11 Blood Urea Nitrogen 20 mg/dL Creatinine 3.3 mg/dL Estimated GFR (Cockcroft-Gault) 15.1 Glucose Level 175 mg/dL Calcium Level 8.2 mg/dL Magnesium Level 2.2 mg/dL Test 03/19/21 06:42 03/19/21 07:45 Glucose (Fingerstick) 167 mg/dL O2 Saturation 98 % Arterial Blood pH 7.49 Arterial Blood pCO2 at Patient Temp 33 mmHg Arterial Blood pO2 at Patient Temp 108 mmHg Arterial Blood HCO3 25 mmol/L Arterial Blood Base Excess 1 mmol/L FiO2 45/vent GRAM STAIN EVALUATION Final Final This specimen is of good quality and is acceptable for routine bacterial culture. Culture results to follow. NO ORGANISMS SEEN. SQUAMOUS EPI CELL:RARE PMN (WBCs):MODERATE Unless otherwise specified, Testing Performed by: [facility] [address] [place] [address] For Inquires, the Physician may contact the Microbiology department at [phone] RESPIRATORY CULTURE Final Final MODERATE GRAM NEGATIVE RODS on 03/18/21 at 1124 FINAL ID= [ACINETOBACTER [id number].] ACINETOBACTER URSINGII. BLOOD CULTURE Preliminary NO GROWTH AFTER 3 DAYS PE: GEN: generalized edema LUNGS: trach/vent HEART: RRR ABD: large/anasarca NEURO/PSYCH: sedated A/P: COVID-19 S/p tracheostomy ACD - requiring transfusion -- Tentative plans for PEG Tuesday. INR normal 03/13/21. Justicifation of Admission Dx: Justifications for Admission: Justification of Admission Dx: N/A JANELLE MONTENEGRO Mar 19, 2021 11:45
--- NOTE | 2021-03-19 12:45 | RAD ---
Single view of the upper abdomen 03/19/2021 INDICATION: Dobbhoff placement Discussion: There is a weighted feeding tube with tip extending below the diaphragm projecting over t he expected region of the stomach. No gross evidence of bowel obstruction is seen. Bilateral basilar pulmonary infiltrates noted. No acute osseous changes are identified. IMPRESSION: Weighted feeding tube with tip projecting over the expected region of the distal stomach. Electronically signed by: Owen De La Torre MD (03/19/2021 12:43 PM) [id number]
--- NOTE | 2021-03-19 12:46 | NUR ---
SS following up with discharge planning. SS reviewed pt chart and discussed with pt RN. Pt is currently on the vent at 45%. COVID19 positive. Pt on IV Meropenem. Dobhoff in place. Pt on Precedex, Versed, Fentanyl and Propofol. Pt getting blood today. Hemodialysis. SS will continue to follow for discharge planning.
[2021-03-19] MEDS: MEROPENEM 1 GM in IV NORMAL SALINE 100ML 100 ML IV SCH ×2 (16:56→22:36)
[2021-03-19] MEDS ORDERED: IV NORMAL SALINE 1000ML BAG 1,000 ML IV PRN ×2 (17:15)
[2021-03-19] MEDS ORDERED: ALBUMIN HUMAN 25% 200 ML IV PRN (17:15)
[2021-03-19] MEDS ORDERED: DIALYSIS PATIENT. MC PRN ×2 (17:15)
[2021-03-19] MEDS: NOREPINEPHRINE VIAL 8 MG in IV DEXTROSE 5% 250 ML IV PRN (18:45)
--- NOTE | 2021-03-19 20:00 | NUR ---
Vital signs for blood transfusion will be documented under Vital sign intervention.
[2021-03-19] MEDS: ATORVASTATIN CALCIUM 40 MG TABLET. PO SCH (20:32)
--- NOTE | 2021-03-19 22:00 | NUR ---
Unit of PRBCs infused, patient tolerated well; no s/sx of transfusion reaction
[2021-03-20] VITALS (23 sets, daily range): BP systolic 83–187; BP diastolic 51–107
[2021-03-20] MEDS: INSULIN LISPRO 300 UNITS/3 ML VIAL. SQ SCH ×5 (00:26→23:34)
[2021-03-20] MEDS: LABETALOL 20 MG/4 ML DISP.SYRIN. IVP PRN (02:12)
[2021-03-20] MEDS: DEXMEDETOMIDINE 400 MCG in IV NORMAL SALINE 100ML 96 ML IV PRN ×6 (03:02→20:02)
[2021-03-20] MEDS: fentaNYL HIGH DOSE PCA 55 ML IV PRN (03:59)
[2021-03-20] MEDS: MIDAZOLAM 100mg/100ml NS BAG 100 ML IV PRN ×2 (04:08→17:18)
[2021-03-20] MEDS: PROPOFOL 100 ML IV PRN ×3 (05:13→17:19)
--- NOTE | 2021-03-20 05:31 | RAD ---
Chest AP portable at 0419: Reason for examination: Respiratory failure. Comparison is made to previous study dated 03/18/2021. Tracheostomy tube, NG tube, double lumen catheter and right PICC line remain present. Heart size and mediastinum are unchanged. Lung mercer continue to show diffuse pulmonary opacities bilaterally witho ut interval improvement. No pleural effusions are seen. No acute bony abnormalities are evident. IMPRESSION: Continued presence of diffuse pulmonary opacities bilaterally without interval improvement. Electronically signed by: Lennie Saxena MD (03/20/2021 5:28 AM) TACO
[2021-03-20] MEDS: HEPARIN for SUB-Q USE 5,000 UNIT/ML VIAL. SQ SCH ×3 (06:12→21:45)
[2021-03-20 06:36] LABS: CALCIUM 8.4 mg/dL (8.5-10.1); CREATININE 2.8 mg/dL (0.6-1.0); GFR 18.3; POTASSIUM 4.3 mmol/L (3.5-5.1)
[2021-03-20 06:40] LABS: MAGNESIUM 2.1 mg/dL (1.8-2.4); PHOSPHORUS 3.1 mg/dL (2.6-4.7)
[2021-03-20 07:04] LABS: BASO # 0.1 x10^3/uL (0.0-0.2); BASO % 0 % (0-3); EOS # 1.4 x10^3/uL (0.0-0.7); EOS % 10 % (0-3); HEMATOCRIT 25.1 % (36.0-47.0); HEMOGLOBIN 8.4 g/dL (12.0-15.5); LYMPH # 1.5 x10^3/uL (1.0-4.8); LYMPH % 10 % (24-48); MEAN CORPUSCULAR HEMOGLOBIN 29 pg (25-35); MEAN CORPUSCULAR HGB CONC 34 g/dL (31-37); MEAN CORPUSCULAR VOLUME 88 fL (79-100); MONO # 0.6 x10^3/uL (0.0-1.1); MONO % 4 % (0-9); NEUT # 11.3 x10^3/uL (1.8-7.7); NEUT % 76 % (31-73); PLATELET COUNT 165 x10^3/uL (140-400); RED BLOOD COUNT 2.86 x10^6/uL (3.50-5.40); RED CELL DISTRIBUTION WIDTH 14.8 % (11.5-14.5); WHITE BLOOD COUNT 14.9 x10^3/uL (4.0-11.0)
[2021-03-20 07:23] LABS: PROTHROMBIN TIME PATIENT 14.4 SEC (11.7-14.0)
[2021-03-20 08:26] LABS: BASE EXCESS ABG 0 mmol/L (-3-3); FIO2 ABG 40; HCO3 ABG 23 mmol/L (21-28); PCO2 ABG 30 mmHg (35-46); PO2 ABG 80 mmHg (75-108); SAT O2 ABG 95 % (92-99)
--- NOTE | 2021-03-20 08:55 | PDOC ---
Infectious Disease Note Subjective Subjective Pt intubated sedated Status post tracheostomy ROS ROS No nausea vomiting Vital Sign Vital Signs Vital Signs Date Time Temp Pulse Resp B/P (MAP) Pulse Ox O2 Delivery O2 Flow Rate FiO2 03/20/21 08:03 96 Ventilator 03/20/21 03:59 24 03/20/21 02:12 93 182/93 03/19/21 19:43 97.8 97.8 Physical Exam PHYSICAL EXAM GENERAL: Intubated and sedated. Trach HEENT: Normocephalic, atraumatic. Anicteric. Slight bilateral periorbital edema. Neck right IJ HDC clean LUNGS: Rhonchi. HEART: S1, S2. No murmurs. ABDOMEN: Obese, soft. Bowel sounds present. Nontender, nondistended. Abdominal and mons pubis edema noted. GENITOURINARY: Kern and fecal tube in place. EXTREMITIES: Edema present no cyanosis. CENTRAL NERVOUS SYSTEM: Intubated. PSYCHIATRIC: Unable to assess. Derm has pressure wounds wound pictures noted in chart. Generalized rash, PICC line , right IJ HDC clean Labs Lab Laboratory Tests Test 03/19/21 11:44 03/19/21 16:59 03/20/21 00:25 03/20/21 06:15 Glucose (Fingerstick) 149 mg/dL (70-99) 127 mg/dL (70-99) 131 mg/dL (70-99) White Blood Count 14.9 x10^3/uL (4.0-11.0) Red Blood Count 2.86 x10^6/uL (3.50-5.40) Hemoglobin 8.4 g/dL (12.0-15.5) Hematocrit 25.1 % (36.0-47.0) Mean Corpuscular Volume 88 fL (79-100) Mean Corpuscular Hemoglobin 29 pg (25-35) Mean Corpuscular Hemoglobin Concent 34 g/dL (31-37) Red Cell Distribution Width 14.8 % (11.5-14.5) Platelet Count 165 x10^3/uL (140-400) Neutrophils (%) (Auto) 76 % (31-73) Lymphocytes (%) (Auto) 10 % (24-48) Monocytes (%) (Auto) 4 % (0-9) Eosinophils (%) (Auto) 10 % (0-3) Basophils (%) (Auto) 0 % (0-3) Neutrophils # (Auto) 11.3 x10^3/uL (1.8-7.7) Lymphocytes # (Auto) 1.5 x10^3/uL (1.0-4.8) Monocytes # (Auto) 0.6 x10^3/uL (0.0-1.1) Eosinophils # (Auto) 1.4 x10^3/uL (0.0-0.7) Basophils # (Auto) 0.1 x10^3/uL (0.0-0.2) Prothrombin Time 14.4 SEC (11.7-14.0) Prothromb Time International Ratio 1.1 (0.8-1.1) Sodium Level 136 mmol/L (136-145) Potassium Level 4.3 mmol/L (3.5-5.1) Chloride Level 99 mmol/L (98-107) Carbon Dioxide Level 26 mmol/L (21-32) Anion Gap 11 (6-14) Blood Urea Nitrogen 17 mg/dL (7-20) Creatinine 2.8 mg/dL (0.6-1.0) Estimated GFR (Cockcroft-Gault) 18.3 Glucose Level 177 mg/dL (70-99) Calcium Level 8.4 mg/dL (8.5-10.1) Phosphorus Level 3.1 mg/dL (2.6-4.7) Magnesium Level 2.1 mg/dL (1.8-2.4) Test 03/20/21 06:17 03/20/21 08:26 Glucose (Fingerstick) 171 mg/dL (70-99) O2 Saturation 95 % (92-99) Arterial Blood pH 7.49 (7.35-7.45) Arterial Blood pCO2 at Patient Temp 30 mmHg (35-46) Arterial Blood pO2 at Patient Temp 80 mmHg (75-108) Arterial Blood HCO3 23 mmol/L (21-28) Arterial Blood Base Excess 0 mmol/L (-3-3) FiO2 40 Micro GRAM STAIN EVALUATION Final Final This specimen is of good quality and is acceptable for routine bacterial culture. Culture results to follow. NO ORGANISMS SEEN. SQUAMOUS EPI CELL:RARE PMN (WBCs):MODERATE Unless otherwise specified, Testing Performed by: [address] [address] For Inquires, the Physician may contact the Microbiology department at [phone] RESPIRATORY CULTURE Final Final MODERATE GRAM NEGATIVE RODS on 03/18/21 at 1120 FINAL ID= [ACINETOBACTER [email or web address].] ACINETOBACTER URSINGII. ANTIMICROBIAL SUSCEPTIBILITY Final Comment NEG SAGE 56 ACINETOBACTER URSINGII. ANTIBIOTIC RESULT INTERPRETATION AMPICILLIN/SULBACTAM <=4/2 S AMIKACIN <=16 S CEFTRIAXONE 2 S CEFTAZIDIME 16 I CEFOTAXIME 16 I CIPROFLOXACIN <=0.25 S CEFEPIME 4 S GENTAMICIN <=2 S LEVOFLOXACIN <=0.5 S RUN DATE: 03/19/21 [facility] *LIVE* PAGE 2 RUN TIME: 1120 Specimen Inquiry SPEC: [id number] PATIENT: ARIADNA BANKS [id number] (Continued) Procedure Result CONTINUED ON NEXT PAGE RUN DATE: 03/19/21 [facility] *LIVE* PAGE 3 RUN TIME: 1120 Specimen Inquiry SPEC: [id number] PATIENT: ARIADNA BANKS [id number] (Continued) Procedure Result ANTIMICROBIAL SUSCEPTIBILITY Final (continued) MINOCYCLINE <=4 S MEROPENEM <=1 S TRIMETHOPRIM/SULFAMETHOXAZOLE <=0.5/9.5 S TOBRAMYCIN <=2 S Unless otherwise specified, Testing Performed by: [address] [address] For Inquires, the Physician may contact the Microbiology department at [phone] -- Objective Assessment 1. Febrile illness. Improved 2. COVID-19 infection present on date of admission, 02/06/2021. Status post remdesivir, dexamethasone. 3. Acute hypoxic respiratory failure, status post intubation. Trach cultures positive for Rock albicans 4. Diabetes. 5. Diarrhea. 6. Hypertension. 7. Hyperlipidemia. 8. Anemia. 9. BOB on HD 10. rock albican, ua neg Plan Plan of Care Meropenem Follow-up lab ,cultures, C. diff PCR negative Kern changed per team Wound care per wound treatment Offload Continue supportive care. Prognosis guarded. D/W BLANCA CURIEL MD Mar 20, 2021 08:55
[2021-03-20] MEDS: FAMOTIDINE 20 MG/2 ML VIAL IVP SCH (09:00)
[2021-03-20] MEDS: DOCUSATE 100 MG/10 ML SOLUTION. PO SCH ×2 (09:00→20:35)
[2021-03-20] MEDS: MULTIVITAMINS,THERAPEUTIC 5 ML ORAL LIQUID. PEG SCH (09:00)
[2021-03-20] MEDS: INSULIN GLARGINE SYRINGE. SQ SCH ×2 (09:03→20:34)
[2021-03-20] MEDS: NYSTATIN TOPICAL POWDER 15GM BOTTLE. TP SCH ×2 (09:06→20:35)
[2021-03-20] MEDS: VITS A & D/LANOLIN TOPICAL OINTMENT 42GM TUBE. TP PRN (09:34)
--- NOTE | 2021-03-20 10:09 | PDOC ---
PULMONARY PROGRESS NOTES DATE: 03/20/21 TIME: 10:05 Subjective pt. remain on vent support afebrile no overnight concerns Vitals Vital Signs Date Time Temp Pulse Resp B/P (MAP) Pulse Ox O2 Delivery O2 Flow Rate FiO2 03/20/21 08:03 96 Ventilator 03/20/21 06:00 64 24 168/83 (111) 03/20/21 04:00 98.6 98.6 Lungs: Clear Cardiovascular: S1 Abdomen: Soft Skin: Warm Labs Laboratory Tests Test 03/18/21 11:57 03/18/21 17:55 03/19/21 00:09 03/19/21 06:35 Glucose (Fingerstick) 164 mg/dL (70-99) 112 mg/dL (70-99) 132 mg/dL (70-99) White Blood Count 10.8 x10^3/uL (4.0-11.0) Red Blood Count 2.32 x10^6/uL (3.50-5.40) Hemoglobin 7.0 g/dL (12.0-15.5) Hematocrit 20.4 % (36.0-47.0) Mean Corpuscular Volume 88 fL (79-100) Mean Corpuscular Hemoglobin 30 pg (25-35) Mean Corpuscular Hemoglobin Concent 34 g/dL (31-37) Red Cell Distribution Width 14.6 % (11.5-14.5) Platelet Count 146 x10^3/uL (140-400) Neutrophils (%) (Auto) 74 % (31-73) Lymphocytes (%) (Auto) 13 % (24-48) Monocytes (%) (Auto) 4 % (0-9) Eosinophils (%) (Auto) 9 % (0-3) Basophils (%) (Auto) 1 % (0-3) Neutrophils # (Auto) 8.0 x10^3/uL (1.8-7.7) Lymphocytes # (Auto) 1.3 x10^3/uL (1.0-4.8) Monocytes # (Auto) 0.4 x10^3/uL (0.0-1.1) Eosinophils # (Auto) 1.0 x10^3/uL (0.0-0.7) Basophils # (Auto) 0.1 x10^3/uL (0.0-0.2) Sodium Level 135 mmol/L (136-145) Potassium Level 3.3 mmol/L (3.5-5.1) Chloride Level 97 mmol/L (98-107) Carbon Dioxide Level 27 mmol/L (21-32) Anion Gap 11 (6-14) Blood Urea Nitrogen 20 mg/dL (7-20) Creatinine 3.3 mg/dL (0.6-1.0) Estimated GFR (Cockcroft-Gault) 15.1 Glucose Level 175 mg/dL (70-99) Calcium Level 8.2 mg/dL (8.5-10.1) Magnesium Level 2.2 mg/dL (1.8-2.4) Test 03/19/21 06:42 03/19/21 07:45 03/19/21 11:44 03/19/21 16:59 Glucose (Fingerstick) 167 mg/dL (70-99) 149 mg/dL (70-99) 127 mg/dL (70-99) O2 Saturation 98 % (92-99) Arterial Blood pH 7.49 (7.35-7.45) Arterial Blood pCO2 at Patient Temp 33 mmHg (35-46) Arterial Blood pO2 at Patient Temp 108 mmHg (75-108) Arterial Blood HCO3 25 mmol/L (21-28) Arterial Blood Base Excess 1 mmol/L (-3-3) FiO2 45/vent Test 03/20/21 00:25 03/20/21 06:15 03/20/21 06:17 03/20/21 08:26 Glucose (Fingerstick) 131 mg/dL (70-99) 171 mg/dL (70-99) White Blood Count 14.9 x10^3/uL (4.0-11.0) Red Blood Count 2.86 x10^6/uL (3.50-5.40) Hemoglobin 8.4 g/dL (12.0-15.5) Hematocrit 25.1 % (36.0-47.0) Mean Corpuscular Volume 88 fL (79-100) Mean Corpuscular Hemoglobin 29 pg (25-35) Mean Corpuscular Hemoglobin Concent 34 g/dL (31-37) Red Cell Distribution Width 14.8 % (11.5-14.5) Platelet Count 165 x10^3/uL (140-400) Neutrophils (%) (Auto) 76 % (31-73) Lymphocytes (%) (Auto) 10 % (24-48) Monocytes (%) (Auto) 4 % (0-9) Eosinophils (%) (Auto) 10 % (0-3) Basophils (%) (Auto) 0 % (0-3) Neutrophils # (Auto) 11.3 x10^3/uL (1.8-7.7) Lymphocytes # (Auto) 1.5 x10^3/uL (1.0-4.8) Monocytes # (Auto) 0.6 x10^3/uL (0.0-1.1) Eosinophils # (Auto) 1.4 x10^3/uL (0.0-0.7) Basophils # (Auto) 0.1 x10^3/uL (0.0-0.2) Prothrombin Time 14.4 SEC (11.7-14.0) Prothromb Time International Ratio 1.1 (0.8-1.1) Sodium Level 136 mmol/L (136-145) Potassium Level 4.3 mmol/L (3.5-5.1) Chloride Level 99 mmol/L (98-107) Carbon Dioxide Level 26 mmol/L (21-32) Anion Gap 11 (6-14) Blood Urea Nitrogen 17 mg/dL (7-20) Creatinine 2.8 mg/dL (0.6-1.0) Estimated GFR (Cockcroft-Gault) 18.3 Glucose Level 177 mg/dL (70-99) Calcium Level 8.4 mg/dL (8.5-10.1) Phosphorus Level 3.1 mg/dL (2.6-4.7) Magnesium Level 2.1 mg/dL (1.8-2.4) O2 Saturation 95 % (92-99) Arterial Blood pH 7.49 (7.35-7.45) Arterial Blood pCO2 at Patient Temp 30 mmHg (35-46) Arterial Blood pO2 at Patient Temp 80 mmHg (75-108) Arterial Blood HCO3 23 mmol/L (21-28) Arterial Blood Base Excess 0 mmol/L (-3-3) FiO2 40 Laboratory Tests Test 03/19/21 11:44 03/19/21 16:59 03/20/21 00:25 03/20/21 06:15 Glucose (Fingerstick) 149 mg/dL (70-99) 127 mg/dL (70-99) 131 mg/dL (70-99) White Blood Count 14.9 x10^3/uL (4.0-11.0) Red Blood Count 2.86 x10^6/uL (3.50-5.40) Hemoglobin 8.4 g/dL (12.0-15.5) Hematocrit 25.1 % (36.0-47.0) Mean Corpuscular Volume 88 fL (79-100) Mean Corpuscular Hemoglobin 29 pg (25-35) Mean Corpuscular Hemoglobin Concent 34 g/dL (31-37) Red Cell Distribution Width 14.8 % (11.5-14.5) Platelet Count 165 x10^3/uL (140-400) Neutrophils (%) (Auto) 76 % (31-73) Lymphocytes (%) (Auto) 10 % (24-48) Monocytes (%) (Auto) 4 % (0-9) Eosinophils (%) (Auto) 10 % (0-3) Basophils (%) (Auto) 0 % (0-3) Neutrophils # (Auto) 11.3 x10^3/uL (1.8-7.7) Lymphocytes # (Auto) 1.5 x10^3/uL (1.0-4.8) Monocytes # (Auto) 0.6 x10^3/uL (0.0-1.1) Eosinophils # (Auto) 1.4 x10^3/uL (0.0-0.7) Basophils # (Auto) 0.1 x10^3/uL (0.0-0.2) Prothrombin Time 14.4 SEC (11.7-14.0) Prothromb Time International Ratio 1.1 (0.8-1.1) Sodium Level 136 mmol/L (136-145) Potassium Level 4.3 mmol/L (3.5-5.1) Chloride Level 99 mmol/L (98-107) Carbon Dioxide Level 26 mmol/L (21-32) Anion Gap 11 (6-14) Blood Urea Nitrogen 17 mg/dL (7-20) Creatinine 2.8 mg/dL (0.6-1.0) Estimated GFR (Cockcroft-Gault) 18.3 Glucose Level 177 mg/dL (70-99) Calcium Level 8.4 mg/dL (8.5-10.1) Phosphorus Level 3.1 mg/dL (2.6-4.7) Magnesium Level 2.1 mg/dL (1.8-2.4) Test 03/20/21 06:17 03/20/21 08:26 Glucose (Fingerstick) 171 mg/dL (70-99) O2 Saturation 95 % (92-99) Arterial Blood pH 7.49 (7.35-7.45) Arterial Blood pCO2 at Patient Temp 30 mmHg (35-46) Arterial Blood pO2 at Patient Temp 80 mmHg (75-108) Arterial Blood HCO3 23 mmol/L (21-28) Arterial Blood Base Excess 0 mmol/L (-3-3) FiO2 40 Medications Active Scripts Medications Dose Route/Sig Max Daily Dose Days Date Category Novolog Flexpen (Insulin Aspart) 100 Unit/1 Ml Insuln.pen 3-7 SQ TIDACHC 02/07/21 Reported Lisinopril 5 Mg Tablet 1 Tab PO DAILY 02/07/21 Reported Lantus Solostar (Insulin Glargine,Hum.rec.anlog) 100 Unit/1 Ml Insuln.pen 5 Unit SQ QHS 04/09/15 Reported Atorvastatin Calcium 40 Mg Tablet 40 Mg PO HS 04/09/15 Reported Comments 03/20/21 CXR IMPRESSION: Continued presence of diffuse pulmonary opacities bilaterally without interval improvement. Impression . IMPRESSION: 1. Acute hypoxic respiratory failure secondary to COVID-19 viral pneumonia/acute lung injury and early acute respiratory distress syndrome. S/P intubation 02/17/21 2. Nonsmoker. 3. Abnormal chest x-ray consistent with COVID-19 viral pneumonia.--- 4. Diabetic ketoacidosis--resolved 5. Underlying obesity contributing to hypoxia as well. 6. BOB worsening hemodialysis started 03/07 7. Fever, per ID--resolved 8. Abnormal chest x-ray with diffuse interstitial infiltrates compatible with viral pneumonia 9. [place] in the sputum is a contamination 10. Septic shock--resolved Plan . Updated 03/20/21 Continue current vent support, currently on 45% in PC mode will reduce to 40% and change to 1:2 IE ratio Reduce sedation and assess mental status Follow CXR/ABG Follow nephrology recs Monitor HBG , follow GI recs Follow ID recs for ABX DVT/GI PPX D/W RN and RT Updated 03/[address] Whitley On exam she appears to be less puffy Finish course of remdesivir and dexamethasone Hemodialysis DVT GI prophylaxis Off pressors Chest x-ray reviewed, no significant change, 03/18 updated 03/18 Continue current mechanical support Hemodialysis per Dr. Sims Nutritional support DVT GI prophylaxis EMILY POSADA MD Mar 20, 2021 10:09
--- NOTE | 2021-03-20 10:20 | PDOC ---
Renal-Progress Notes Subjective Notes Notes NO CHANGES History of Present Illness Hx of present illness REMAINS ON THE VENT Vitals Vitals Vital Signs Date Time Temp Pulse Resp B/P (MAP) Pulse Ox O2 Delivery O2 Flow Rate FiO2 03/20/21 08:03 96 Ventilator 03/20/21 06:00 64 24 168/83 (111) 03/20/21 04:00 98.6 98.6 Weight Weight [ ] I.O. Intake and Output Intake and Output 03/20/21 07:00 Intake Total 3174.52 ml Output Total 15 ml Balance 3159.52 ml IV Total 1402.52 ml Tube Feeding 1342 ml Blood Product 330 ml Other 100 ml Output Urine Total 15 ml Gastric Drainage Total 0 ml Labs Labs Laboratory Tests Test 03/19/21 11:44 03/19/21 16:59 03/20/21 00:25 03/20/21 06:15 Glucose (Fingerstick) 149 mg/dL (70-99) 127 mg/dL (70-99) 131 mg/dL (70-99) White Blood Count 14.9 x10^3/uL (4.0-11.0) Red Blood Count 2.86 x10^6/uL (3.50-5.40) Hemoglobin 8.4 g/dL (12.0-15.5) Hematocrit 25.1 % (36.0-47.0) Mean Corpuscular Volume 88 fL (79-100) Mean Corpuscular Hemoglobin 29 pg (25-35) Mean Corpuscular Hemoglobin Concent 34 g/dL (31-37) Red Cell Distribution Width 14.8 % (11.5-14.5) Platelet Count 165 x10^3/uL (140-400) Neutrophils (%) (Auto) 76 % (31-73) Lymphocytes (%) (Auto) 10 % (24-48) Monocytes (%) (Auto) 4 % (0-9) Eosinophils (%) (Auto) 10 % (0-3) Basophils (%) (Auto) 0 % (0-3) Neutrophils # (Auto) 11.3 x10^3/uL (1.8-7.7) Lymphocytes # (Auto) 1.5 x10^3/uL (1.0-4.8) Monocytes # (Auto) 0.6 x10^3/uL (0.0-1.1) Eosinophils # (Auto) 1.4 x10^3/uL (0.0-0.7) Basophils # (Auto) 0.1 x10^3/uL (0.0-0.2) Prothrombin Time 14.4 SEC (11.7-14.0) Prothromb Time International Ratio 1.1 (0.8-1.1) Sodium Level 136 mmol/L (136-145) Potassium Level 4.3 mmol/L (3.5-5.1) Chloride Level 99 mmol/L (98-107) Carbon Dioxide Level 26 mmol/L (21-32) Anion Gap 11 (6-14) Blood Urea Nitrogen 17 mg/dL (7-20) Creatinine 2.8 mg/dL (0.6-1.0) Estimated GFR (Cockcroft-Gault) 18.3 Glucose Level 177 mg/dL (70-99) Calcium Level 8.4 mg/dL (8.5-10.1) Phosphorus Level 3.1 mg/dL (2.6-4.7) Magnesium Level 2.1 mg/dL (1.8-2.4) Test 03/20/21 06:17 03/20/21 08:26 Glucose (Fingerstick) 171 mg/dL (70-99) O2 Saturation 95 % (92-99) Arterial Blood pH 7.49 (7.35-7.45) Arterial Blood pCO2 at Patient Temp 30 mmHg (35-46) Arterial Blood pO2 at Patient Temp 80 mmHg (75-108) Arterial Blood HCO3 23 mmol/L (21-28) Arterial Blood Base Excess 0 mmol/L (-3-3) FiO2 40 Micro Micro Microbiology 03/16/21 Gram Stain Evaluation - Final, Complete 03/16/21 Respiratory Culture - Final, Complete 03/16/21 Antimicrobic Susceptibility - Final, Complete 03/16/21 Blood Culture - Preliminary, Resulted NO GROWTH AFTER 3 DAYS 03/04/21 Urine Culture - Final, Complete Review of Systems Constitutional: yes: unresponsive Physical Exam General Appearance: no apparent distress Skin: warm Respiratory: decreased breath sounds Heart: S1S2 Abdomen: soft, bowel sounds present Extremities: pulses present Neurology: alert Assessment Assessment IMP [id number] HEMATURIA GLUCOSURIA MET AND RESP ACIDOSIS WITH ACIDEMIA COVID 19 PNEUMONIA ACUTE RESP FAILURE DM II HTN OBESITY ANEMIA GENERALIZED EDEMA LEUCOCYTOSIS HYPOKALEMIA PLAN HD TODAY USE 4 K DIALYSATE UF TOLERATED-4.0 LITERS PRBC WITH HD AGAIN TODAY ALBUMIN PRE DIALYSIS AGAIN MONITOR FOR RENAL RECOVERY-STILL ANURIC CONTROL BG ANTIBIOTICS ID EVAL AND TX CONT TF AND WATER FLUSHES WILL AVOID DOYLE DUE TO THROMBOGENIC STATE VENT SUPPORT WILL FOLLOW COLLIN ROLON MD Mar 20, 2021 10:20
--- NOTE | 2021-03-20 11:52 | PDOC ---
Date of Service: DATE: 03/20/21 TIME: 11:50 Objective: Objective: D/w nurse - tolerating Dobhoff feeds, lots of rectal tube output. Vital Signs: Vital Signs Date Time Temp Pulse Resp B/P (MAP) Pulse Ox O2 Delivery O2 Flow Rate FiO2 03/20/21 11:28 95 Ventilator 03/20/21 11:00 82 24 90/58 (69) 03/20/21 08:00 97.8 97.8 Labs: Laboratory Tests Test 03/19/21 16:59 03/20/21 00:25 03/20/21 06:17 Glucose (Fingerstick) 127 mg/dL (70-99) 131 mg/dL (70-99) 171 mg/dL (70-99) BLOOD CULTURE Preliminary NO GROWTH AFTER 4 DAYS PE: GEN: NAD LUNGS: vent/trach HEART: RRR ABD: bit softer? less distended NEURO/PSYCH: sedated A/P: COVID-19 "recovered" S/p tracheostomy ACD -- PEG Tuesday. INR normal 03/20/21. Justicifation of Admission Dx: Justifications for Admission: Justification of Admission Dx: N/A JANELLE MONTENEGRO Mar 20, 2021 11:52
--- NOTE | 2021-03-20 12:05 | PDOC ---
[facility] PROGRESS NOTE Date of Service DOS: DATE: 03/20/21 TIME: 11:54 Chief Complaint Chief Complaint CC: Covid-19 DKA Hypotension Nausea Vomiting Combined metabolic and respiratory acidosis Acute electrolyte derangementhyponatremia, hypochloremia due to volume depletion Hyperglycemia BOB Erythrocytosis Candiduria Sacral decubitus ulcer History of Present Illness History of Present Illness Ms Borges is a 46 year old female who presented with nausea/vomiting since 7 AM 02/06/2021 in the morning. Patient stated that her recently tested positive for Covid. She states that he "coughed in my face because he thought it was funny." She reports subjective fevers and chills and nausea/vomiting. Denies sore throat, cough, shortness of breath. No chest pain. Does have some upper abdominal discomfort after vomiting, that she attributes to muscular strain. She was not vaccinated for Covid. 02/08: No acute events overnight. Patient seen and examined bedside and resting comfortably. Continues to complain of nausea not able to tolerate any diet at this time. Saturating 98% on room air. Patient's chart, labs, images were reviewed and discussed with RN 02/09: Afebrile, currently breathing on room air. Still with complaints of nausea and vomiting x3 today. States that she has history of similar symptoms that have been mildly improved with IV Dilaudid. 02/10: Patient febrile today with T-max 102.2 F. She still admits to nausea, denies any further vomiting. We will continue to provide supportive care and monitor for any recurrent fevers overnight. Patient continues to improve may discharge tomorrow to continue self-isolation. 02/11: Febrile overnight, T-max 102.3 F. She did become hypoxic overnight, currently breathing on 4 L nasal cannula. Also admits to associated vomiting or diarrhea overnight. Discussed with RN, will initiate remdesivir and closely monitor LFTs. IV Decadron, and prophylactic antibiotics. 02/12: Low-grade fever overnight, T-max 99.7. Currently breathing on room air. Will discontinue remdesivir, steroids, and antibiotics; will observe overnight. Still with complaints of vomiting x1 and diarrhea. We will continue to provide supportive care and hope to discharge in the next day or so. 02/13: Afebrile. Still complains of intermittent diarrhea. At the time of my evaluation she was breathing on 6 L nasal cannula; this is somewhat misleading as patient states that she did not feel short of breath but was placed on 6 L by nursing staff overnight. 02/14: Afebrile, currently breathing on 8 L nasal cannula. There has been some misleading documentation, chart oxygen this patient is requiring. Discussed with RN, will resume remdesivir to complete total of 5 days. Continue to monitor LFTs. Will add steroids, Rocephin, and azithromycin. 02/15: Afebrile. Became much more hypoxic overnight, requiring BiPAP. At the time of my evaluation she is still breathing on BiPAP. Consultation was placed to pulmonology. Had discussion with Dr. Myrick about initiating Tocilizumab 02/16: No acute events overnight. Patient becoming more hypoxic saturating 94% and requiring BiPAP. Patient will be transferred to the ICU at this time. For worsening clinical status. Discussed with pulmonary. Patient's chart, labs, images were reviewed and discussed with RN 02/17: Transferred to ICU yesterday afternoon. Seen and examined at bedside she remains on 100% FiO2 on BiPAP. Respirations do appear somewhat labored. Dia pect intubation may be impending. We will closely monitor. Increase lisinopril to 20 today. 02/18: Patient required intubation yesterday afternoon. Saw and examined this morning. She is intubated and sedated. Increase insulin today. Covid protocol ordered. Wean as tolerated. Plan of care discussed with bedside nurse. 02/19: Bedside. She remains intubated and sedated. Continue Covid protocol. Wean oxygen sedation as tolerated. Pulmonary following. Plan of care discussed with bedside RN. 02/20: Patient seen and examined at bedside. She remains intubated and sedated. No major clinical changes. Continue current treatment. Pulmonary following. Plan of care discussed with bedside RN. 02/21: Patient seen and examined at bedside. Remains intubated and sedated date and admission clinical changes. Increase free water flushes today due to hypernatremia. Plan of care discussed with bedside nurse. 02/22: Patient seen and examined at bedside. O2 requirement actually improving, although remains intubated. Possible SBT in the coming days. Hypernatremia improving. Plan of care discussed bedside RN. 02/23: Patient remains in ICU on ventilator with FiO2 100%, PEEP 7. Repeat chest x-ray yesterday showed diffuse bilateral pulmonary opacities with no interval improvement. Will discontinue Rocephin and initiate Zosyn. We will continue IV steroids for a full 10-day course 02/24: Afebrile. On vent with FiO2 40%, PEEP 6. Her Coreg has been held due to persistent bradycardia. No documented history of systolic heart failure or previous echocardiogram. Will need to obtain echocardiogram prior to discharge. Continue IV steroids and antibiotics. 02/25: Afebrile. Remains ventilated with FiO2 45%, PEEP 6. Chest x-ray today showed slight improvement of the pulmonary infiltrates, no pneumothorax. Completed 10-day course of IV Decadron. Will initiate slow Solu-Medrol taper. Continue IV Zosyn. Continue supportive care. 02/26: Afebrile. On vent with FiO2 45%, PEEP 6. Completed 10 days of IV Decadron. Will continue IV Zosyn. Continue supportive care. Critical care time 30 minutes spent reviewing charts, reviewing imaging, reviewing labs, discussion with RN. 02/27: Afebrile. On vent with FiO2 45%, PEEP 6. Completed 10 days of steroids and completed remdesivir. Continue with IV Zosyn. CPAP trial yesterday. Continue NG tube and supportive care. 02/28:. Patient remains on vent with FiO2 40%, PEEP 5. Afebrile. Completed steroids and remdesivir. Some noted hypoglycemia overnight, will de-escalate basal insulin. Continue IV Zosyn. Ventilator management per pulmonology. Continue NG tube and supportive care. 03/01: On vent with FiO2 40%, PEEP 5. Afebrile. Completed steroids and remdesivir. Blood glucose well controlled. Continue empiric antibiotics with Zosyn. Ventilator management per pulmonology. Continue NG tube and supportive care. 03/02: No acute events overnight. Patient hypotensive the morning due to oversedation. Will wean off sedation and keep antihypertensive medications on board. Currently saturating 100% on vent settings of 18/450/40/5. Will attempt spontaneous breathing trial today to see how patient does. 03/03: No acute events overnight. Patient saturating 98% on vent settings of 18/450/40/5. Will defer spontaneous breathing trials to pulmonary at this time. Patient's chart, labs, images were reviewed and discussed with RN 03/04: No acute events overnight. Patient saturating 9 9% on vent settings of 18/450/30/5. Patient currently is unable to tolerate weaning. Per pulmonary. Patient's chart, labs, images were reviewed and discussed with RN 8: No acute events overnight. Patient is saturating 97% on vent settings of 18/450/55/5. Her FiO2 needs to be increased due to abnormal ABG with 7.3 //24. Patient's chart, labs, images were reviewed and discussed with RN 8: No acute events overnight. Patient saturating 94% on vent settings of 18/450/55/5. Chest x-ray showing increase in pulmonary infiltrates. Wound care is consulted for decubitus ulcer patient's chart, labs, images were reviewed and discussed with RN 8: No acute events overnight. Patient saturating 94% on vent settings of 20/450/70/8. Patient now heading into renal failure with her creatinine bumped up from 1.5-4.2. Decreased urine output. Plan for hemodialysis today and temporary catheter placement and nephrology is consulted. 03/08: No acute events overnight. Patient did have a nausea vomiting episode and tube feeds were held. KUB repeat shows NG tube still in the stomach. Will resume tube feeds at trickle and advance to goal today. Will start hemodialysis soon. 03/09: Seen on vent 20/450/60%/8. ABG 7.2 WBC 11.4, Hb 7.4, platelets 188, NA 131, K4.9, BUN 48, CR 51, glucose 199, phosphorus 7.9, mag 2.2, AST 265 ALT 219, albumin 1.1. Chest radiograph appears unchanged from prior. Dialysis x1 today 03/10: Afebrile. Seen on vent, 20/450/60/7 with ABG 7.3 . Tolerated dialysis well on 03/09. LFTs similar. 03/11: Afebrile. Seen on vent, sedated. Still requiring Levophed for BP support. WBC 16.7, Hb 8.1, NA 130, ABG 7.3 on 55% FiO2 PEEP 6. On Zosyn and Zyvox Diflucan. Dialysis today 03/12: Afebrile. Still requiring Levophed for BP support sedated with Versed febrile Precedex. WBC 16.1, Hb 8.5, platelets 185, NA 133. Trach plan tentatively 03/17. O2 saturations 93% on 50% FiO2 PEEP 6. ABG 7.38/35/79 On Zosyn and Zyvox Diflucan. 03/13: Afebrile. Still on Levophed for BP support lightly sedated. 7./ on 45% FiO2. Plan for dialysis today. On Zosyn and Zyvox Diflucan. More swollen today. 03/14: Afebrile. Weaning down off Levophed. WBC 14.9 NA 132. O2 saturations 92% on 45% FiO2 PEEP 5. Afebrile. O2 saturations 91% on FiO2 45% PEEP 6. Continued on Zosyn and Zyvox Diflucan. Tentative trach planned 03/17/2021 CC time 31 minutes 03/16/21: Patient seen and examined in ICU. Periorbital as well as upper and lower extremity edema noted. OG feed running at 30cc/hr. Still on vent on pressure control with a rate of 24 with 45% FiO2. Patient has rectal bag. Currently she has 98% O2 sat. Currently sedated with Dexmedetomidine, Propofol, Versed, and Fentanyl. Discussed with RN. Chart reviewed. 03/17/21: Patient was seen and examined in the ICU today. Periorbital edema as well as abdominal and mons pubis edema was noted. Patient still on vent on pressure control with Fi02 of 45% plus 6 PEEP. Patient had rectal bag. Currently sedated on Dexmedetomidine, Propofol, Versed, and Fentanyl. Discussed with RN. Chart reviewed. 03/18/21: Patient seen and examined in ICU. On vent via trach that was placed yesterday. Vent settings are Pressure Control of 40 with FiO2 of 45% and 6 PEEP. Trach clean and dry. Orbital swelling still present. Pupils are sluggish. Patient on TPN running at 30cc/hr. Kern to bedside and rectal bag in place. Current O2 sat at 94%. Sedated on Dexmedetomidine, Propofol, Versed, and Fentanyl. Discussed with RN. Chart reviewed. 03/19/21: Patient was seen and examined in the ICU today. Currently on vent via trach on pressure control of 42, rate of 24, FiO2 of 45%, and 6 PEEP. O2 sat is at 97% while patient is being examined. Trach is clean and dry. PICC line is in place on right arm. Periorbital swelling has decreased slightly since examined yesterday. Patient is sedated on Dexmedetomidine, Propofol, Versed, and Fentanyl. Discussed with RN. Chart reviewed. 03/20/21: Patient seen and examined in the ICU. Periorbital edema is slightly decreased since yesterday. O2 sat while being examined was 93%. NG tube in place and running at 30cc/hr. Patient on vent via trach on pressure control of 40 with FiO2 of 45 and rate of 24. Sedated on Dexmedetomidine, Propofol, Versed, and Fentanyl. PICC line in place. Kern to bedside. Rectal bag present. Discussed with RN. Chart reviewed. Vitals/I&O Vitals/I&O: Vital Signs Date Time Temp Pulse Resp B/P (MAP) Pulse Ox O2 Delivery O2 Flow Rate FiO2 03/20/21 11:28 95 Ventilator 03/20/21 11:00 82 24 90/58 (69) 03/20/21 08:00 97.8 97.8 I & O 03/19/21 03/19/21 03/20/21 15:00 23:00 07:00 Intake Total 400 ml 1206.52 ml 1568 ml Output Total 0 ml 15 ml Balance 400 ml 1206.52 ml 1553 ml Physical Exam Physical Exam: GENERAL: Intubated and sedated. Trach HEENT: Normocephalic, atraumatic. Anicteric. Slight bilateral periorbital edema. Neck right IJ HDC clean LUNGS: Rhonchi. HEART: S1, S2. No murmurs. ABDOMEN: Obese, soft. Bowel sounds present. Nontender, nondistended. Abdominal and mons pubis edema noted. GENITOURINARY: Kern and fecal tube in place. EXTREMITIES: Edema present no cyanosis. CENTRAL NERVOUS SYSTEM: Intubated. PSYCHIATRIC: Unable to assess. Derm has pressure wounds wound pictures noted in chart. Generalized rash, PICC line , right IJ HDC clean General: Other (SEDATED) Heart: Regular rate, Normal S1, Normal S2, No murmurs, Gallops Lungs: Clear Abdomen: Normal bowel sounds, Soft, No tenderness, No hepatosplenomegaly, No masses Extremities: Other (ANASARCA) Skin: No rashes, No significant lesion Labs Labs: Laboratory Tests Test 03/19/21 16:59 03/20/21 00:25 03/20/21 06:15 03/20/21 06:17 Glucose (Fingerstick) 127 mg/dL (70-99) 131 mg/dL (70-99) 171 mg/dL (70-99) White Blood Count 14.9 x10^3/uL (4.0-11.0) Red Blood Count 2.86 x10^6/uL (3.50-5.40) Hemoglobin 8.4 g/dL (12.0-15.5) Hematocrit 25.1 % (36.0-47.0) Mean Corpuscular Volume 88 fL (79-100) Mean Corpuscular Hemoglobin 29 pg (25-35) Mean Corpuscular Hemoglobin Concent 34 g/dL (31-37) Red Cell Distribution Width 14.8 % (11.5-14.5) Platelet Count 165 x10^3/uL (140-400) Neutrophils (%) (Auto) 76 % (31-73) Lymphocytes (%) (Auto) 10 % (24-48) Monocytes (%) (Auto) 4 % (0-9) Eosinophils (%) (Auto) 10 % (0-3) Basophils (%) (Auto) 0 % (0-3) Neutrophils # (Auto) 11.3 x10^3/uL (1.8-7.7) Lymphocytes # (Auto) 1.5 x10^3/uL (1.0-4.8) Monocytes # (Auto) 0.6 x10^3/uL (0.0-1.1) Eosinophils # (Auto) 1.4 x10^3/uL (0.0-0.7) Basophils # (Auto) 0.1 x10^3/uL (0.0-0.2) Prothrombin Time 14.4 SEC (11.7-14.0) Prothromb Time International Ratio 1.1 (0.8-1.1) Sodium Level 136 mmol/L (136-145) Potassium Level 4.3 mmol/L (3.5-5.1) Chloride Level 99 mmol/L (98-107) Carbon Dioxide Level 26 mmol/L (21-32) Anion Gap 11 (6-14) Blood Urea Nitrogen 17 mg/dL (7-20) Creatinine 2.8 mg/dL (0.6-1.0) Estimated GFR (Cockcroft-Gault) 18.3 Glucose Level 177 mg/dL (70-99) Calcium Level 8.4 mg/dL (8.5-10.1) Phosphorus Level 3.1 mg/dL (2.6-4.7) Magnesium Level 2.1 mg/dL (1.8-2.4) Test 03/20/21 08:26 O2 Saturation 95 % (92-99) Arterial Blood pH 7.49 (7.35-7.45) Arterial Blood pCO2 at Patient Temp 30 mmHg (35-46) Arterial Blood pO2 at Patient Temp 80 mmHg (75-108) Arterial Blood HCO3 23 mmol/L (21-28) Arterial Blood Base Excess 0 mmol/L (-3-3) FiO2 40 Review of Systems Review of Systems: GI: no nausea. no vomiting. Eyes: no changes in vision. no blurry vision. Assessment and Plan Assessmemt and Plan Problems Medical Problems: (1) Ketoacidosis Status: Acute Covid-19 DKA Hypotension Nausea Vomiting Combined metabolic and respiratory acidosis Acute electrolyte derangementhyponatremia, hypochloremia due to volume depletion Hyperglycemia BOB Erythrocytosis Candiduria Sacral decubitus ulcer Plan: 1. ICU monitoring 2. Vent weaning 3. Continue weaning off Levophed 4. Continue sedation ( dexmedetomidine, Propofol, Versed, Fentanyl) 5. Trend labs 6. Full code 7. DVT prophylaxis 8. Appreciate subspecialist input 9. Prognosis guarded (I am concerned she may not survive) 10) continue COVID protocol (she completed her remdesivir February 18 and got dexamethasone from February 11 to February 15), on meropenem, vitamins and minerals CC time 34 minutes Comment Review of Relevant I have reviewed the following items mazin (where applicable) has been applied. Justifications for Admission Other Justification DIANELYS BLACKMON III DO Mar 20, 2021 12:05
[2021-03-20] MEDS ORDERED: 0.9 % SODIUM CHLORIDE 10 ML DISP.SYRIN. IV PRN ×2 (12:30)
[2021-03-20] MEDS ORDERED: ALBUMIN HUMAN 25% 200 ML IV PRN (12:30)
[2021-03-20] MEDS ORDERED: DIALYSIS PATIENT. MC PRN ×2 (12:30)
[2021-03-20] MEDS ORDERED: IV NORMAL SALINE 1000ML BAG 1,000 ML IV PRN ×2 (12:30)
--- NOTE | 2021-03-20 15:54 | NUR ---
SS following up with discharge planning. SS reviewed pt chart and discussed with pt RN. Pt is currently on the vent at 40%. Trach in place. Currently has Dobhoff. PEG placement scheduled for 03/23/2021. COVID19 recovered. Pt on Versed, Fentanyl, Precedex, and Propofol. Pt on IV Meropenem and Sub Q Heparin. Self pay. Med Assist working with spouse to complete paperwork for disability and Medicaid. SS will continue to follow for discharge planning.
[2021-03-20] MEDS: MINERAL OIL/PETROLATUM,WHITE OPHTH OINT 3.5GM TUBE. OU PRN (15:55)
[2021-03-20] MEDS: MEROPENEM 1 GM in IV NORMAL SALINE 100ML 100 ML IV SCH (17:11)
[2021-03-20] MEDS: ATORVASTATIN CALCIUM 40 MG TABLET. PO SCH (20:35)
[2021-03-21] VITALS (24 sets, daily range): BP systolic 111–198; BP diastolic 65–106
[2021-03-21] MEDS: PROPOFOL 100 ML IV PRN ×2 (00:50→08:54)
[2021-03-21] MEDS: DEXMEDETOMIDINE 400 MCG in IV NORMAL SALINE 100ML 96 ML IV PRN ×5 (00:55→20:17)
[2021-03-21] MEDS: HEPARIN for SUB-Q USE 5,000 UNIT/ML VIAL. SQ SCH ×3 (05:35→22:20)
[2021-03-21] MEDS: INSULIN LISPRO 300 UNITS/3 ML VIAL. SQ SCH ×4 (05:35→23:36)
[2021-03-21 06:07] LABS: BASO # 0.1 x10^3/uL (0.0-0.2); BASO % 1 % (0-3); EOS # 1.2 x10^3/uL (0.0-0.7); EOS % 10 % (0-3); HEMATOCRIT 23.9 % (36.0-47.0); HEMOGLOBIN 8.1 g/dL (12.0-15.5); LYMPH # 1.6 x10^3/uL (1.0-4.8); LYMPH % 12 % (24-48); MEAN CORPUSCULAR HEMOGLOBIN 30 pg (25-35); MEAN CORPUSCULAR HGB CONC 34 g/dL (31-37); MEAN CORPUSCULAR VOLUME 89 fL (79-100); MONO # 0.8 x10^3/uL (0.0-1.1); MONO % 6 % (0-9); NEUT # 8.9 x10^3/uL (1.8-7.7); NEUT % 71 % (31-73); PLATELET COUNT 171 x10^3/uL (140-400); RED BLOOD COUNT 2.69 x10^6/uL (3.50-5.40); RED CELL DISTRIBUTION WIDTH 15.1 % (11.5-14.5); WHITE BLOOD COUNT 12.5 x10^3/uL (4.0-11.0)
[2021-03-21 06:20] LABS: CALCIUM 8.5 mg/dL (8.5-10.1); CREATININE 2.7 mg/dL (0.6-1.0); GFR 19.1; POTASSIUM 4.1 mmol/L (3.5-5.1)
[2021-03-21] MEDS: DOCUSATE 100 MG/10 ML SOLUTION. PO SCH ×2 (07:49→20:41)
[2021-03-21] MEDS: MULTIVITAMINS,THERAPEUTIC 5 ML ORAL LIQUID. PEG SCH (08:53)
[2021-03-21] MEDS: FAMOTIDINE 20 MG/2 ML VIAL IVP SCH (08:53)
[2021-03-21] MEDS: NYSTATIN TOPICAL POWDER 15GM BOTTLE. TP SCH ×2 (09:04→20:41)
[2021-03-21 09:27] LABS: BASE EXCESS ABG 2 mmol/L (-3-3); HCO3 ABG 26 mmol/L (21-28); PCO2 ABG 38 mmHg (35-46); PO2 ABG 62 mmHg (75-108); SAT O2 ABG 91 % (92-99)
[2021-03-21 09:30] LABS: FIO2 ABG 45
--- NOTE | 2021-03-21 09:51 | PDOC ---
PULMONARY PROGRESS NOTES DATE: 03/21/21 TIME: 09:50 Subjective pt. remain on vent support afebrile no overnight concerns Off Versed. Not waking up yet Vitals Vital Signs Date Time Temp Pulse Resp B/P (MAP) Pulse Ox O2 Delivery O2 Flow Rate FiO2 03/21/21 09:06 93 Ventilator 03/21/21 09:00 100 27 128/76 (93) 03/21/21 08:00 98.4 98.4 03/20/21 15:00 90.0 Lungs: Clear Cardiovascular: S1 Abdomen: Soft Skin: Warm Labs Laboratory Tests Test 03/19/21 11:44 03/19/21 16:59 03/20/21 00:25 03/20/21 06:15 Glucose (Fingerstick) 149 mg/dL (70-99) 127 mg/dL (70-99) 131 mg/dL (70-99) White Blood Count 14.9 x10^3/uL (4.0-11.0) Red Blood Count 2.86 x10^6/uL (3.50-5.40) Hemoglobin 8.4 g/dL (12.0-15.5) Hematocrit 25.1 % (36.0-47.0) Mean Corpuscular Volume 88 fL (79-100) Mean Corpuscular Hemoglobin 29 pg (25-35) Mean Corpuscular Hemoglobin Concent 34 g/dL (31-37) Red Cell Distribution Width 14.8 % (11.5-14.5) Platelet Count 165 x10^3/uL (140-400) Neutrophils (%) (Auto) 76 % (31-73) Lymphocytes (%) (Auto) 10 % (24-48) Monocytes (%) (Auto) 4 % (0-9) Eosinophils (%) (Auto) 10 % (0-3) Basophils (%) (Auto) 0 % (0-3) Neutrophils # (Auto) 11.3 x10^3/uL (1.8-7.7) Lymphocytes # (Auto) 1.5 x10^3/uL (1.0-4.8) Monocytes # (Auto) 0.6 x10^3/uL (0.0-1.1) Eosinophils # (Auto) 1.4 x10^3/uL (0.0-0.7) Basophils # (Auto) 0.1 x10^3/uL (0.0-0.2) Prothrombin Time 14.4 SEC (11.7-14.0) Prothromb Time International Ratio 1.1 (0.8-1.1) Sodium Level 136 mmol/L (136-145) Potassium Level 4.3 mmol/L (3.5-5.1) Chloride Level 99 mmol/L (98-107) Carbon Dioxide Level 26 mmol/L (21-32) Anion Gap 11 (6-14) Blood Urea Nitrogen 17 mg/dL (7-20) Creatinine 2.8 mg/dL (0.6-1.0) Estimated GFR (Cockcroft-Gault) 18.3 Glucose Level 177 mg/dL (70-99) Calcium Level 8.4 mg/dL (8.5-10.1) Phosphorus Level 3.1 mg/dL (2.6-4.7) Magnesium Level 2.1 mg/dL (1.8-2.4) Test 03/20/21 06:17 03/20/21 08:26 03/20/21 13:06 03/20/21 18:09 Glucose (Fingerstick) 171 mg/dL (70-99) 188 mg/dL (70-99) 127 mg/dL (70-99) O2 Saturation 95 % (92-99) Arterial Blood pH 7.49 (7.35-7.45) Arterial Blood pCO2 at Patient Temp 30 mmHg (35-46) Arterial Blood pO2 at Patient Temp 80 mmHg (75-108) Arterial Blood HCO3 23 mmol/L (21-28) Arterial Blood Base Excess 0 mmol/L (-3-3) FiO2 40 Test 03/20/21 23:32 03/21/21 05:30 03/21/21 09:20 Glucose (Fingerstick) 164 mg/dL (70-99) White Blood Count 12.5 x10^3/uL (4.0-11.0) Red Blood Count 2.69 x10^6/uL (3.50-5.40) Hemoglobin 8.1 g/dL (12.0-15.5) Hematocrit 23.9 % (36.0-47.0) Mean Corpuscular Volume 89 fL (79-100) Mean Corpuscular Hemoglobin 30 pg (25-35) Mean Corpuscular Hemoglobin Concent 34 g/dL (31-37) Red Cell Distribution Width 15.1 % (11.5-14.5) Platelet Count 171 x10^3/uL (140-400) Neutrophils (%) (Auto) 71 % (31-73) Lymphocytes (%) (Auto) 12 % (24-48) Monocytes (%) (Auto) 6 % (0-9) Eosinophils (%) (Auto) 10 % (0-3) Basophils (%) (Auto) 1 % (0-3) Neutrophils # (Auto) 8.9 x10^3/uL (1.8-7.7) Lymphocytes # (Auto) 1.6 x10^3/uL (1.0-4.8) Monocytes # (Auto) 0.8 x10^3/uL (0.0-1.1) Eosinophils # (Auto) 1.2 x10^3/uL (0.0-0.7) Basophils # (Auto) 0.1 x10^3/uL (0.0-0.2) Sodium Level 138 mmol/L (136-145) Potassium Level 4.1 mmol/L (3.5-5.1) Chloride Level 100 mmol/L (98-107) Carbon Dioxide Level 29 mmol/L (21-32) Anion Gap 9 (6-14) Blood Urea Nitrogen 16 mg/dL (7-20) Creatinine 2.7 mg/dL (0.6-1.0) Estimated GFR (Cockcroft-Gault) 19.1 Glucose Level 173 mg/dL (70-99) Calcium Level 8.5 mg/dL (8.5-10.1) O2 Saturation 91 % (92-99) Arterial Blood pH 7.44 (7.35-7.45) Arterial Blood pCO2 at Patient Temp 38 mmHg (35-46) Arterial Blood pO2 at Patient Temp 62 mmHg (75-108) Arterial Blood HCO3 26 mmol/L (21-28) Arterial Blood Base Excess 2 mmol/L (-3-3) FiO2 45 Laboratory Tests Test 03/20/21 13:06 03/20/21 18:09 03/20/21 23:32 03/21/21 05:30 Glucose (Fingerstick) 188 mg/dL (70-99) 127 mg/dL (70-99) 164 mg/dL (70-99) White Blood Count 12.5 x10^3/uL (4.0-11.0) Red Blood Count 2.69 x10^6/uL (3.50-5.40) Hemoglobin 8.1 g/dL (12.0-15.5) Hematocrit 23.9 % (36.0-47.0) Mean Corpuscular Volume 89 fL (79-100) Mean Corpuscular Hemoglobin 30 pg (25-35) Mean Corpuscular Hemoglobin Concent 34 g/dL (31-37) Red Cell Distribution Width 15.1 % (11.5-14.5) Platelet Count 171 x10^3/uL (140-400) Neutrophils (%) (Auto) 71 % (31-73) Lymphocytes (%) (Auto) 12 % (24-48) Monocytes (%) (Auto) 6 % (0-9) Eosinophils (%) (Auto) 10 % (0-3) Basophils (%) (Auto) 1 % (0-3) Neutrophils # (Auto) 8.9 x10^3/uL (1.8-7.7) Lymphocytes # (Auto) 1.6 x10^3/uL (1.0-4.8) Monocytes # (Auto) 0.8 x10^3/uL (0.0-1.1) Eosinophils # (Auto) 1.2 x10^3/uL (0.0-0.7) Basophils # (Auto) 0.1 x10^3/uL (0.0-0.2) Sodium Level 138 mmol/L (136-145) Potassium Level 4.1 mmol/L (3.5-5.1) Chloride Level 100 mmol/L (98-107) Carbon Dioxide Level 29 mmol/L (21-32) Anion Gap 9 (6-14) Blood Urea Nitrogen 16 mg/dL (7-20) Creatinine 2.7 mg/dL (0.6-1.0) Estimated GFR (Cockcroft-Gault) 19.1 Glucose Level 173 mg/dL (70-99) Calcium Level 8.5 mg/dL (8.5-10.1) Test 03/21/21 09:20 O2 Saturation 91 % (92-99) Arterial Blood pH 7.44 (7.35-7.45) Arterial Blood pCO2 at Patient Temp 38 mmHg (35-46) Arterial Blood pO2 at Patient Temp 62 mmHg (75-108) Arterial Blood HCO3 26 mmol/L (21-28) Arterial Blood Base Excess 2 mmol/L (-3-3) FiO2 45 Medications Active Scripts Medications Dose Route/Sig Max Daily Dose Days Date Category Novolog Flexpen (Insulin Aspart) 100 Unit/1 Ml Insuln.pen 3-7 SQ TIDACHC 02/07/21 Reported Lisinopril 5 Mg Tablet 1 Tab PO DAILY 02/07/21 Reported Lantus Solostar (Insulin Glargine,Hum.rec.anlog) 100 Unit/1 Ml Insuln.pen 5 Unit SQ QHS 04/09/15 Reported Atorvastatin Calcium 40 Mg Tablet 40 Mg PO HS 04/09/15 Reported Comments 03/20/21 CXR IMPRESSION: Continued presence of diffuse pulmonary opacities bilaterally without interval improvement. Impression . IMPRESSION: 1. Acute hypoxic respiratory failure secondary to COVID-19 viral pneumonia/acute lung injury and early acute respiratory distress syndrome. S/P intubation 02/17/21 2. Nonsmoker. 3. Abnormal chest x-ray consistent with COVID-19 viral pneumonia.--- 4. Diabetic ketoacidosis--resolved 5. Underlying obesity contributing to hypoxia as well. 6. BOB worsening hemodialysis started 03/07 7. Fever, per ID--resolved 8. Abnormal chest x-ray with diffuse interstitial infiltrates compatible with viral pneumonia 9. [place] in the sputum is a contamination 10. Septic shock--resolved Plan . Updated 03/21/21 Continue current vent support, currently on 45% in PC mode Discontinue sedation and assess mental status. Once more awake CPAP trial. Follow CXR/ABG Follow nephrology recs Monitor HBG , follow GI recs Follow ID recs for ABX DVT/GI PPX D/W RN and RT Updated 03/20/21 Continue current vent support, currently on 45% in PC mode will reduce to 40% and change to 1:2 IE ratio Reduce sedation and assess mental status Follow CXR/ABG Follow nephrology recs Monitor HBG , follow GI recs Follow ID recs for ABX DVT/GI PPX D/W RN and RT Updated 03/[address] Whitley On exam she appears to be less puffy Finish course of remdesivir and dexamethasone Hemodialysis DVT GI prophylaxis Off pressors Chest x-ray reviewed, no significant change, 03/18 updated 03/18 Continue current mechanical support Hemodialysis per Dr. Sims Nutritional support DVT GI prophylaxis EMILY POSADA MD Mar 21, 2021 09:51
--- NOTE | 2021-03-21 11:05 | PDOC ---
[employer] PROGRESS NOTE Date of Service DOS: DATE: 03/21/21 TIME: 10:54 Chief Complaint Chief Complaint CC: Covid-19 DKA Hypotension Nausea Vomiting Combined metabolic and respiratory acidosis Acute electrolyte derangementhyponatremia, hypochloremia due to volume depletion Hyperglycemia BOB Erythrocytosis Candiduria Sacral decubitus ulcer History of Present Illness History of Present Illness Ms Borges is a 46 year old female who presented with nausea/vomiting since 7 AM 02/06/2021 in the morning. Patient stated that her recently tested positive for Covid. She states that he "coughed in my face because he thought it was funny." She reports subjective fevers and chills and nausea/vomiting. Denies sore throat, cough, shortness of breath. No chest pain. Does have some upper abdominal discomfort after vomiting, that she attributes to muscular strain. She was not vaccinated for Covid. 02/08: No acute events overnight. Patient seen and examined bedside and resting comfortably. Continues to complain of nausea not able to tolerate any diet at this time. Saturating 98% on room air. Patient's chart, labs, images were reviewed and discussed with RN 02/09: Afebrile, currently breathing on room air. Still with complaints of nausea and vomiting x3 today. States that she has history of similar symptoms that have been mildly improved with IV Dilaudid. 02/10: Patient febrile today with T-max 102.2 F. She still admits to nausea, denies any further vomiting. We will continue to provide supportive care and monitor for any recurrent fevers overnight. Patient continues to improve may discharge tomorrow to continue self-isolation. 02/11: Febrile overnight, T-max 102.3 F. She did become hypoxic overnight, currently breathing on 4 L nasal cannula. Also admits to associated vomiting or diarrhea overnight. Discussed with RN, will initiate remdesivir and closely monitor LFTs. IV Decadron, and prophylactic antibiotics. 02/12: Low-grade fever overnight, T-max 99.7. Currently breathing on room air. Will discontinue remdesivir, steroids, and antibiotics; will observe overnight. Still with complaints of vomiting x1 and diarrhea. We will continue to provide supportive care and hope to discharge in the next day or so. 02/13: Afebrile. Still complains of intermittent diarrhea. At the time of my evaluation she was breathing on 6 L nasal cannula; this is somewhat misleading as patient states that she did not feel short of breath but was placed on 6 L by nursing staff overnight. 02/14: Afebrile, currently breathing on 8 L nasal cannula. There has been some misleading documentation, chart oxygen this patient is requiring. Discussed with RN, will resume remdesivir to complete total of 5 days. Continue to monitor LFTs. Will add steroids, Rocephin, and azithromycin. 02/15: Afebrile. Became much more hypoxic overnight, requiring BiPAP. At the time of my evaluation she is still breathing on BiPAP. Consultation was placed to pulmonology. Had discussion with Dr. Myrick about initiating Tocilizumab 02/16: No acute events overnight. Patient becoming more hypoxic saturating 94% and requiring BiPAP. Patient will be transferred to the ICU at this time. For worsening clinical status. Discussed with pulmonary. Patient's chart, labs, images were reviewed and discussed with RN 02/17: Transferred to ICU yesterday afternoon. Seen and examined at bedside she remains on 100% FiO2 on BiPAP. Respirations do appear somewhat labored. Dia pect intubation may be impending. We will closely monitor. Increase lisinopril to 20 today. 02/18: Patient required intubation yesterday afternoon. Saw and examined this morning. She is intubated and sedated. Increase insulin today. Covid protocol ordered. Wean as tolerated. Plan of care discussed with bedside nurse. 02/19: Bedside. She remains intubated and sedated. Continue Covid protocol. Wean oxygen sedation as tolerated. Pulmonary following. Plan of care discussed with bedside RN. 02/20: Patient seen and examined at bedside. She remains intubated and sedated. No major clinical changes. Continue current treatment. Pulmonary following. Plan of care discussed with bedside RN. 02/21: Patient seen and examined at bedside. Remains intubated and sedated date and admission clinical changes. Increase free water flushes today due to hypernatremia. Plan of care discussed with bedside nurse. 02/22: Patient seen and examined at bedside. O2 requirement actually improving, although remains intubated. Possible SBT in the coming days. Hypernatremia improving. Plan of care discussed bedside RN. 02/23: Patient remains in ICU on ventilator with FiO2 100%, PEEP 7. Repeat chest x-ray yesterday showed diffuse bilateral pulmonary opacities with no interval improvement. Will discontinue Rocephin and initiate Zosyn. We will continue IV steroids for a full 10-day course 02/24: Afebrile. On vent with FiO2 40%, PEEP 6. Her Coreg has been held due to persistent bradycardia. No documented history of systolic heart failure or previous echocardiogram. Will need to obtain echocardiogram prior to discharge. Continue IV steroids and antibiotics. 02/25: Afebrile. Remains ventilated with FiO2 45%, PEEP 6. Chest x-ray today showed slight improvement of the pulmonary infiltrates, no pneumothorax. Completed 10-day course of IV Decadron. Will initiate slow Solu-Medrol taper. Continue IV Zosyn. Continue supportive care. 02/26: Afebrile. On vent with FiO2 45%, PEEP 6. Completed 10 days of IV Decadron. Will continue IV Zosyn. Continue supportive care. Critical care time 30 minutes spent reviewing charts, reviewing imaging, reviewing labs, discussion with RN. 02/27: Afebrile. On vent with FiO2 45%, PEEP 6. Completed 10 days of steroids and completed remdesivir. Continue with IV Zosyn. CPAP trial yesterday. Continue NG tube and supportive care. 02/28:. Patient remains on vent with FiO2 40%, PEEP 5. Afebrile. Completed steroids and remdesivir. Some noted hypoglycemia overnight, will de-escalate basal insulin. Continue IV Zosyn. Ventilator management per pulmonology. Continue NG tube and supportive care. 03/01: On vent with FiO2 40%, PEEP 5. Afebrile. Completed steroids and remdesivir. Blood glucose well controlled. Continue empiric antibiotics with Zosyn. Ventilator management per pulmonology. Continue NG tube and supportive care. 03/02: No acute events overnight. Patient hypotensive the morning due to oversedation. Will wean off sedation and keep antihypertensive medications on board. Currently saturating 100% on vent settings of 18/450/40/5. Will attempt spontaneous breathing trial today to see how patient does. 03/03: No acute events overnight. Patient saturating 98% on vent settings of 18/450/40/5. Will defer spontaneous breathing trials to pulmonary at this time. Patient's chart, labs, images were reviewed and discussed with RN 03/04: No acute events overnight. Patient saturating 9 9% on vent settings of 18/450/30/5. Patient currently is unable to tolerate weaning. Per pulmonary. Patient's chart, labs, images were reviewed and discussed with RN 8: No acute events overnight. Patient is saturating 97% on vent settings of 18/450/55/5. Her FiO2 needs to be increased due to abnormal ABG with 7.3 //24. Patient's chart, labs, images were reviewed and discussed with RN 8: No acute events overnight. Patient saturating 94% on vent settings of 18/450/55/5. Chest x-ray showing increase in pulmonary infiltrates. Wound care is consulted for decubitus ulcer patient's chart, labs, images were reviewed and discussed with RN 8: No acute events overnight. Patient saturating 94% on vent settings of 20/450/70/8. Patient now heading into renal failure with her creatinine bumped up from 1.5-4.2. Decreased urine output. Plan for hemodialysis today and temporary catheter placement and nephrology is consulted. 03/08: No acute events overnight. Patient did have a nausea vomiting episode and tube feeds were held. KUB repeat shows NG tube still in the stomach. Will resume tube feeds at trickle and advance to goal today. Will start hemodialysis soon. 03/09: Seen on vent 20/450/60%/8. ABG 7.2 WBC 11.4, Hb 7.4, platelets 188, NA 131, K4.9, BUN 48, CR 51, glucose 199, phosphorus 7.9, mag 2.2, AST 265 ALT 219, albumin 1.1. Chest radiograph appears unchanged from prior. Dialysis x1 today 03/10: Afebrile. Seen on vent, 20/450/60/7 with ABG 7.3 . Tolerated dialysis well on 03/09. LFTs similar. 03/11: Afebrile. Seen on vent, sedated. Still requiring Levophed for BP support. WBC 16.7, Hb 8.1, NA 130, ABG 7.3 on 55% FiO2 PEEP 6. On Zosyn and Zyvox Diflucan. Dialysis today 03/12: Afebrile. Still requiring Levophed for BP support sedated with Versed febrile Precedex. WBC 16.1, Hb 8.5, platelets 185, NA 133. Trach plan tentatively 03/17. O2 saturations 93% on 50% FiO2 PEEP 6. ABG 7.38/35/79 On Zosyn and Zyvox Diflucan. 03/13: Afebrile. Still on Levophed for BP support lightly sedated. 7./ on 45% FiO2. Plan for dialysis today. On Zosyn and Zyvox Diflucan. More swollen today. 03/14: Afebrile. Weaning down off Levophed. WBC 14.9 NA 132. O2 saturations 92% on 45% FiO2 PEEP 5. Afebrile. O2 saturations 91% on FiO2 45% PEEP 6. Continued on Zosyn and Zyvox Diflucan. Tentative trach planned 03/17/2021 CC time 31 minutes 03/16/21: Patient seen and examined in ICU. Periorbital as well as upper and lower extremity edema noted. OG feed running at 30cc/hr. Still on vent on pressure control with a rate of 24 with 45% FiO2. Patient has rectal bag. Currently she has 98% O2 sat. Currently sedated with Dexmedetomidine, Propofol, Versed, and Fentanyl. Discussed with RN. Chart reviewed. 03/17/21: Patient was seen and examined in the ICU today. Periorbital edema as well as abdominal and mons pubis edema was noted. Patient still on vent on pressure control with Fi02 of 45% plus 6 PEEP. Patient had rectal bag. Currently sedated on Dexmedetomidine, Propofol, Versed, and Fentanyl. Discussed with RN. Chart reviewed. 03/18/21: Patient seen and examined in ICU. On vent via trach that was placed yesterday. Vent settings are Pressure Control of 40 with FiO2 of 45% and 6 PEEP. Trach clean and dry. Orbital swelling still present. Pupils are sluggish. Patient on TPN running at 30cc/hr. Kern to bedside and rectal bag in place. Current O2 sat at 94%. Sedated on Dexmedetomidine, Propofol, Versed, and Fentanyl. Discussed with RN. Chart reviewed. 03/19/21: Patient was seen and examined in the ICU today. Currently on vent via trach on pressure control of 42, rate of 24, FiO2 of 45%, and 6 PEEP. O2 sat is at 97% while patient is being examined. Trach is clean and dry. PICC line is in place on right arm. Periorbital swelling has decreased slightly since examined yesterday. Patient is sedated on Dexmedetomidine, Propofol, Versed, and Fentanyl. Discussed with RN. Chart reviewed. 03/20/21: Patient seen and examined in the ICU. Periorbital edema is slightly decreased since yesterday. O2 sat while being examined was 93%. NG tube in place and running at 30cc/hr. Patient on vent via trach on pressure control of 40 with FiO2 of 45 and rate of 24. Sedated on Dexmedetomidine, Propofol, Versed, and Fentanyl. PICC line in place. Kern to bedside. Rectal bag present. Discussed with RN. Chart reviewed. 03/21/21: Patient was seen and examined in the ICU today. She was semi-sedated.. She was on Dexmedetomidine and Fentanyl. We are holding the Propofol. Her eyes were periodically open but she was not making meaningful eye contact or tracking. On vent via trach with pressure control of 40 and FiO2 at 45. Rate was 24. PEEP was 5. Trach was clean and dry. While being examined, her O2 sat was 94%. Rectal bag and Kern to bedside in place. NG tube in place and feeding at 30cc/hr. IV fluids still running. Levophed has been stopped. Discussed with RN. Chart reviewed. Vitals/I&O Vitals/I&O: Vital Signs Date Time Temp Pulse Resp B/P (MAP) Pulse Ox O2 Delivery O2 Flow Rate FiO2 03/21/21 09:06 93 Ventilator 03/21/21 09:00 100 27 128/76 (93) 03/21/21 08:00 98.4 98.4 03/20/21 15:00 90.0 I & O 03/20/21 03/20/21 03/21/21 15:00 23:00 07:00 Intake Total 200 ml 1281 ml 1311.2 ml Output Total 0 ml 205 ml 5 ml Balance 200 ml 1076 ml 1306.2 ml Physical Exam Physical Exam: GENERAL: Intubated and sedated. Trach HEENT: Normocephalic, atraumatic. Anicteric. Slight bilateral periorbital edema. Neck right IJ HDC clean LUNGS: Rhonchi. HEART: S1, S2. No murmurs. ABDOMEN: Obese, soft. Bowel sounds present. Nontender, nondistended. Abdominal and mons pubis edema noted. GENITOURINARY: Kern and fecal tube in place. EXTREMITIES: Edema present no cyanosis. CENTRAL NERVOUS SYSTEM: Intubated. PSYCHIATRIC: Unable to assess. Derm has pressure wounds wound pictures noted in chart. Generalized rash, PICC line , right IJ HDC clean General: Other (SEDATED) Heart: Regular rate, Normal S1, Normal S2, No murmurs, Gallops Lungs: Clear Abdomen: Normal bowel sounds, Soft, No tenderness, No hepatosplenomegaly, No masses Extremities: Other (ANASARCA) Skin: No rashes, No significant lesion Labs Labs: Laboratory Tests Test 03/20/21 13:06 03/20/21 18:09 03/20/21 23:32 03/21/21 05:30 Glucose (Fingerstick) 188 mg/dL (70-99) 127 mg/dL (70-99) 164 mg/dL (70-99) White Blood Count 12.5 x10^3/uL (4.0-11.0) Red Blood Count 2.69 x10^6/uL (3.50-5.40) Hemoglobin 8.1 g/dL (12.0-15.5) Hematocrit 23.9 % (36.0-47.0) Mean Corpuscular Volume 89 fL (79-100) Mean Corpuscular Hemoglobin 30 pg (25-35) Mean Corpuscular Hemoglobin Concent 34 g/dL (31-37) Red Cell Distribution Width 15.1 % (11.5-14.5) Platelet Count 171 x10^3/uL (140-400) Neutrophils (%) (Auto) 71 % (31-73) Lymphocytes (%) (Auto) 12 % (24-48) Monocytes (%) (Auto) 6 % (0-9) Eosinophils (%) (Auto) 10 % (0-3) Basophils (%) (Auto) 1 % (0-3) Neutrophils # (Auto) 8.9 x10^3/uL (1.8-7.7) Lymphocytes # (Auto) 1.6 x10^3/uL (1.0-4.8) Monocytes # (Auto) 0.8 x10^3/uL (0.0-1.1) Eosinophils # (Auto) 1.2 x10^3/uL (0.0-0.7) Basophils # (Auto) 0.1 x10^3/uL (0.0-0.2) Sodium Level 138 mmol/L (136-145) Potassium Level 4.1 mmol/L (3.5-5.1) Chloride Level 100 mmol/L (98-107) Carbon Dioxide Level 29 mmol/L (21-32) Anion Gap 9 (6-14) Blood Urea Nitrogen 16 mg/dL (7-20) Creatinine 2.7 mg/dL (0.6-1.0) Estimated GFR (Cockcroft-Gault) 19.1 Glucose Level 173 mg/dL (70-99) Calcium Level 8.5 mg/dL (8.5-10.1) Test 03/21/21 09:20 O2 Saturation 91 % (92-99) Arterial Blood pH 7.44 (7.35-7.45) Arterial Blood pCO2 at Patient Temp 38 mmHg (35-46) Arterial Blood pO2 at Patient Temp 62 mmHg (75-108) Arterial Blood HCO3 26 mmol/L (21-28) Arterial Blood Base Excess 2 mmol/L (-3-3) FiO2 45 Review of Systems Review of Systems: GI: no nausea. no vomiting. Eyes: no changes in vision. no blurry vision. Assessment and Plan Assessmemt and Plan Problems Medical Problems: (1) Ketoacidosis Status: Acute Covid-19 DKA Hypotension Nausea Vomiting Combined metabolic and respiratory acidosis Acute electrolyte derangementhyponatremia, hypochloremia due to volume dep letion Hyperglycemia BOB Erythrocytosis Candiduria Sacral decubitus ulcer Plan: 1. ICU monitoring 2. Vent weaning 3. Continue sedation (currently only on Dexmedetomidine and Fentanyl) 4. Continue Covid protocol (she completed her Remdesivir February 18 and got dexamethasone from February 11 to February 15), currently on meropenem, vitamins and minerals 5. Trend labs 6. DVT prophylaxis 7. Appreciate subspecialty input 8. Prognosis guarded CC time 32 minutes Comment Review of Relevant I have reviewed the following items mazin (where applicable) has been applied. Medications: Current Medications Medications (Trade) Dose Ordered Sig/Pepe Route PRN Reason Start Time Stop Time Status Last Admin Dose Admin Albumin Human 200 ml @ 200 mls/hr 1X PRN PRN IV Hypotension 03/20/21 12:30 03/20/21 18:29 DC 03/20/21 14:04 Justifications for Admission Other Justification DIAENLYS BLACKMON III DO Mar 21, 2021 11:05
[2021-03-21] MEDS: INSULIN GLARGINE SYRINGE. SQ SCH ×2 (12:22→20:41)
[2021-03-21] MEDS: ACETAMINOPHEN 650 MG/20.3 ML SOLUTION. PEG PRN (12:41)
--- NOTE | 2021-03-21 14:01 | PDOC ---
Renal-Progress Notes Subjective Notes Notes REMAINS ON THE VENT History of Present Illness Hx of present illness OVERALL O2 NEEDS ARE LESS Vitals Vitals Vital Signs Date Time Temp Pulse Resp B/P (MAP) Pulse Ox O2 Delivery O2 Flow Rate FiO2 03/21/21 13:00 96 27 176/82 (113) 93 Ventilator 03/21/21 12:00 102.0 102.0 03/20/21 15:00 90.0 Weight Weight [ ] I.O. Intake and Output Intake and Output 03/21/21 07:00 Intake Total 2792.2 ml Output Total 210 ml Balance 2582.2 ml IV Total 1127.2 ml Tube Feeding 1265 ml Other 400 ml Output Urine Total 10 ml Stool Total 200 ml Gastric Drainage Total 0 ml Labs Labs Laboratory Tests Test 03/20/21 18:09 03/20/21 23:32 03/21/21 05:30 03/21/21 09:20 Glucose (Fingerstick) 127 mg/dL (70-99) 164 mg/dL (70-99) White Blood Count 12.5 x10^3/uL (4.0-11.0) Red Blood Count 2.69 x10^6/uL (3.50-5.40) Hemoglobin 8.1 g/dL (12.0-15.5) Hematocrit 23.9 % (36.0-47.0) Mean Corpuscular Volume 89 fL (79-100) Mean Corpuscular Hemoglobin 30 pg (25-35) Mean Corpuscular Hemoglobin Concent 34 g/dL (31-37) Red Cell Distribution Width 15.1 % (11.5-14.5) Platelet Count 171 x10^3/uL (140-400) Neutrophils (%) (Auto) 71 % (31-73) Lymphocytes (%) (Auto) 12 % (24-48) Monocytes (%) (Auto) 6 % (0-9) Eosinophils (%) (Auto) 10 % (0-3) Basophils (%) (Auto) 1 % (0-3) Neutrophils # (Auto) 8.9 x10^3/uL (1.8-7.7) Lymphocytes # (Auto) 1.6 x10^3/uL (1.0-4.8) Monocytes # (Auto) 0.8 x10^3/uL (0.0-1.1) Eosinophils # (Auto) 1.2 x10^3/uL (0.0-0.7) Basophils # (Auto) 0.1 x10^3/uL (0.0-0.2) Sodium Level 138 mmol/L (136-145) Potassium Level 4.1 mmol/L (3.5-5.1) Chloride Level 100 mmol/L (98-107) Carbon Dioxide Level 29 mmol/L (21-32) Anion Gap 9 (6-14) Blood Urea Nitrogen 16 mg/dL (7-20) Creatinine 2.7 mg/dL (0.6-1.0) Estimated GFR (Cockcroft-Gault) 19.1 Glucose Level 173 mg/dL (70-99) Calcium Level 8.5 mg/dL (8.5-10.1) O2 Saturation 91 % (92-99) Arterial Blood pH 7.44 (7.35-7.45) Arterial Blood pCO2 at Patient Temp 38 mmHg (35-46) Arterial Blood pO2 at Patient Temp 62 mmHg (75-108) Arterial Blood HCO3 26 mmol/L (21-28) Arterial Blood Base Excess 2 mmol/L (-3-3) FiO2 45 Test 03/21/21 12:38 Glucose (Fingerstick) 178 mg/dL (70-99) Micro Micro Microbiology 03/16/21 Gram Stain Evaluation - Final, Complete 03/16/21 Respiratory Culture - Final, Complete 03/16/21 Antimicrobic Susceptibility - Final, Complete 03/16/21 Blood Culture - Preliminary, Resulted NO GROWTH AFTER 4 DAYS 03/04/21 Urine Culture - Final, Complete Review of Systems Constitutional: yes: unresponsive Physical Exam General Appearance: no apparent distress Skin: warm Respiratory: decreased breath sounds Heart: S1S2 Abdomen: soft, bowel sounds present Extremities: pulses present Neurology: alert Assessment Assessment IMP [id number] HEMATURIA GLUCOSURIA MET AND RESP ACIDOSIS WITH ACIDEMIA COVID 19 PNEUMONIA ACUTE RESP FAILURE DM II HTN OBESITY ANEMIA GENERALIZED EDEMA LEUCOCYTOSIS HYPOKALEMIA PLAN HD AGAIN TODAY USE STANDARD DIALYSATE UF TOLERATED-4.0 LITERS PRBC WITH HD AGAIN TODAY ALBUMIN PRE DIALYSIS AGAIN MONITOR FOR RENAL RECOVERY-STILL ANURIC CONTROL BG ANTIBIOTICS ID EVAL AND TX CONT TF AND WATER FLUSHES WILL AVOID DOYLE DUE TO THROMBOGENIC STATE VENT SUPPORT WILL FOLLOW COLLIN ROLON MD Mar 21, 2021 14:01
[2021-03-21] MEDS ORDERED: IV NORMAL SALINE 1000ML BAG 1,000 ML IV PRN ×2 (14:45)
[2021-03-21] MEDS ORDERED: ALBUMIN HUMAN 25% 200 ML IV PRN (14:45)
--- NOTE | 2021-03-21 15:09 | PDOC ---
Infectious Disease Note Subjective Subjective Pt intubated sedated Status post tracheostomy T max 102 ROS ROS no n/v/d/ Vital Sign Vital Signs Vital Signs Date Time Temp Pulse Resp B/P (MAP) Pulse Ox O2 Delivery O2 Flow Rate FiO2 03/21/21 13:00 96 27 176/82 (113) 93 Ventilator 03/21/21 12:00 102.0 102.0 03/20/21 15:00 90.0 Physical Exam PHYSICAL EXAM GENERAL: Intubated and sedated. Trach HEENT: Normocephalic, atraumatic. Anicteric. Slight bilateral periorbital edema. Neck right IJ HDC clean LUNGS: Rhonchi. HEART: S1, S2. No murmurs. ABDOMEN: Obese, soft. Bowel sounds present. Nontender, nondistended. Abdominal and mons pubis edema noted. GENITOURINARY: Kern and fecal tube in place. EXTREMITIES: Edema present no cyanosis. CENTRAL NERVOUS SYSTEM: Intubated. PSYCHIATRIC: Unable to assess. Derm has pressure wounds wound pictures noted in chart. Generalized rash, PICC line , right IJ HDC clean Labs Lab Laboratory Tests Test 03/20/21 18:09 03/20/21 23:32 03/21/21 05:30 03/21/21 09:20 Glucose (Fingerstick) 127 mg/dL (70-99) 164 mg/dL (70-99) White Blood Count 12.5 x10^3/uL (4.0-11.0) Red Blood Count 2.69 x10^6/uL (3.50-5.40) Hemoglobin 8.1 g/dL (12.0-15.5) Hematocrit 23.9 % (36.0-47.0) Mean Corpuscular Volume 89 fL (79-100) Mean Corpuscular Hemoglobin 30 pg (25-35) Mean Corpuscular Hemoglobin Concent 34 g/dL (31-37) Red Cell Distribution Width 15.1 % (11.5-14.5) Platelet Count 171 x10^3/uL (140-400) Neutrophils (%) (Auto) 71 % (31-73) Lymphocytes (%) (Auto) 12 % (24-48) Monocytes (%) (Auto) 6 % (0-9) Eosinophils (%) (Auto) 10 % (0-3) Basophils (%) (Auto) 1 % (0-3) Neutrophils # (Auto) 8.9 x10^3/uL (1.8-7.7) Lymphocytes # (Auto) 1.6 x10^3/uL (1.0-4.8) Monocytes # (Auto) 0.8 x10^3/uL (0.0-1.1) Eosinophils # (Auto) 1.2 x10^3/uL (0.0-0.7) Basophils # (Auto) 0.1 x10^3/uL (0.0-0.2) Sodium Level 138 mmol/L (136-145) Potassium Level 4.1 mmol/L (3.5-5.1) Chloride Level 100 mmol/L (98-107) Carbon Dioxide Level 29 mmol/L (21-32) Anion Gap 9 (6-14) Blood Urea Nitrogen 16 mg/dL (7-20) Creatinine 2.7 mg/dL (0.6-1.0) Estimated GFR (Cockcroft-Gault) 19.1 Glucose Level 173 mg/dL (70-99) Calcium Level 8.5 mg/dL (8.5-10.1) O2 Saturation 91 % (92-99) Arterial Blood pH 7.44 (7.35-7.45) Arterial Blood pCO2 at Patient Temp 38 mmHg (35-46) Arterial Blood pO2 at Patient Temp 62 mmHg (75-108) Arterial Blood HCO3 26 mmol/L (21-28) Arterial Blood Base Excess 2 mmol/L (-3-3) FiO2 45 Test 03/21/21 12:38 Glucose (Fingerstick) 178 mg/dL (70-99) Micro GRAM STAIN EVALUATION Final Final This specimen is of good quality and is acceptable for routine bacterial culture. Culture results to follow. NO ORGANISMS SEEN. SQUAMOUS EPI CELL:RARE PMN (WBCs):MODERATE Unless otherwise specified, Testing Performed by: [facility] [address] [place] [address] For Inquires, the Physician may contact the Microbiology department at [phone] RESPIRATORY CULTURE Final Final MODERATE GRAM NEGATIVE RODS on 03/18/21 at 1120 FINAL ID= [ACINETOBACTER [email or web address].] ACINETOBACTER URSINGII. ANTIMICROBIAL SUSCEPTIBILITY Final Comment NEG SAGE 56 ACINETOBACTER URSINGII. ANTIBIOTIC RESULT INTERPRETATION AMPICILLIN/SULBACTAM <=4/2 S AMIKACIN <=16 S CEFTRIAXONE 2 S CEFTAZIDIME 16 I CEFOTAXIME 16 I CIPROFLOXACIN <=0.25 S CEFEPIME 4 S GENTAMICIN <=2 S LEVOFLOXACIN <=0.5 S RUN DATE: 03/19/21 [facility] *LIVE* PAGE 2 RUN TIME: 1120 Specimen Inquiry SPEC: [id number] PATIENT: ARIADNA BANKS [id number] (Continued) Procedure Result CONTINUED ON NEXT PAGE RUN DATE: 03/19/21 [facility] *LIVE* PAGE 3 RUN TIME: 1120 Specimen Inquiry SPEC: [id number] PATIENT: ARIADNA BANKS [id number] (Continued) Procedure Result --- --------- ANTIMICROBIAL SUSCEPTIBILITY Final (continued) MINOCYCLINE <=4 S MEROPENEM <=1 S TRIMETHOPRIM/SULFAMETHOXAZOLE <=0.5/9.5 S TOBRAMYCIN <=2 S Unless otherwise specified, Testing Performed by: [facility] [address] [place] [address] For Inquires, the Physician may contact the Microbiology department at [phone] Objective Assessment 1. Febrile illness. Improved 2. COVID-19 infection present on date of admission, 02/06/2021. Status post remdesivir, dexamethasone. 3. Acute hypoxic respiratory failure, status post intubation. S/P Trach on 03/17 Trach cultures positive for Rock albicans and now acinebacter ursungi 4. Diabetes. 5. Diarrhea. 6. Hypertension. 7. Hyperlipidemia. 8. Anemia. 9. BOB on HD 10. rock albican, ua neg Plan Plan of Care Cont Meropenem add daptomycin and micafungin Follow-up lab ,cultures, C. diff PCR negative Kern changed per team Wound care per wound treatment Offload Continue supportive care. Awaiting PEG on Tuesday Prognosis guarded. D/W BLANCA CURIEL MD Mar 21, 2021 15:09
[2021-03-21] MEDS ORDERED: DIALYSIS PATIENT. MC PRN ×2 (15:30)
[2021-03-21] MEDS: MEROPENEM 1 GM in IV NORMAL SALINE 100ML 100 ML IV SCH (17:39)
[2021-03-21] MEDS: fentaNYL HIGH DOSE PCA 55 ML IV PRN (17:40)
[2021-03-21] MEDS ORDERED: DAPTOmycin (GENERIC) IVPB 480 MG in IV NORMAL SALINE 50ML 50 ML IV SCH (19:00)
[2021-03-21] MEDS: MICAFUNGIN 100 MG in IV DEXTROSE 5% 100ML 100 ML IV SCH (19:12)
[2021-03-21] MEDS: ATORVASTATIN CALCIUM 40 MG TABLET. PO SCH (20:40)
[2021-03-22] VITALS (24 sets, daily range): BP systolic 162–205; BP diastolic 77–101
[2021-03-22] MEDS: DEXMEDETOMIDINE 400 MCG in IV NORMAL SALINE 100ML 96 ML IV PRN ×5 (03:04→21:46)
[2021-03-22] MEDS: LABETALOL 20 MG/4 ML DISP.SYRIN. IVP PRN ×2 (05:08→13:03)
[2021-03-22] MEDS: HEPARIN for SUB-Q USE 5,000 UNIT/ML VIAL. SQ SCH ×3 (05:36→21:08)
[2021-03-22] MEDS: INSULIN LISPRO 300 UNITS/3 ML VIAL. SQ SCH ×4 (05:36→23:50)
[2021-03-22 05:55] LABS: CALCIUM 8.8 mg/dL (8.5-10.1); CREATININE 2.5 mg/dL (0.6-1.0); GFR 20.8; POTASSIUM 3.4 mmol/L (3.5-5.1)
[2021-03-22 05:59] LABS: BASO # 0.2 x10^3/uL (0.0-0.2); BASO % 1 % (0-3); EOS # 1.1 x10^3/uL (0.0-0.7); EOS % 8 % (0-3); HEMATOCRIT 25.5 % (36.0-47.0); HEMOGLOBIN 8.5 g/dL (12.0-15.5); LYMPH # 1.6 x10^3/uL (1.0-4.8); LYMPH % 11 % (24-48); MEAN CORPUSCULAR HEMOGLOBIN 30 pg (25-35); MEAN CORPUSCULAR HGB CONC 34 g/dL (31-37); MEAN CORPUSCULAR VOLUME 89 fL (79-100); MONO # 1.1 x10^3/uL (0.0-1.1); MONO % 7 % (0-9); NEUT # 10.5 x10^3/uL (1.8-7.7); NEUT % 73 % (31-73); PLATELET COUNT 205 x10^3/uL (140-400); RED BLOOD COUNT 2.86 x10^6/uL (3.50-5.40); RED CELL DISTRIBUTION WIDTH 15.2 % (11.5-14.5); WHITE BLOOD COUNT 14.4 x10^3/uL (4.0-11.0)
[2021-03-22 08:31] LABS: BASE EXCESS ABG 2 mmol/L (-3-3); CORRECTED PCO2 ABG 39 mmHg; CORRECTED PH ABG 7.45; CORRECTED PO2 ABG 81 mmHg; HCO3 ABG 26 mmol/L (21-28); PCO2 ABG 37 mmHg (35-46); PO2 ABG 74 mmHg (75-108); SAT O2 ABG 95 % (92-99)
[2021-03-22 08:36] LABS: FIO2 ABG 45
[2021-03-22] MEDS: DOCUSATE 100 MG/10 ML SOLUTION. PO SCH ×2 (09:00→21:05)
[2021-03-22] MEDS: FAMOTIDINE 20 MG/2 ML VIAL IVP SCH (09:03)
[2021-03-22] MEDS: INSULIN GLARGINE SYRINGE. SQ SCH ×2 (09:03→21:08)
[2021-03-22] MEDS: MULTIVITAMINS,THERAPEUTIC 5 ML ORAL LIQUID. PEG SCH (09:03)
[2021-03-22] MEDS: NYSTATIN TOPICAL POWDER 15GM BOTTLE. TP SCH ×2 (09:04→21:08)
--- NOTE | 2021-03-22 10:05 | PDOC ---
Renal-Progress Notes Subjective Notes Notes NO COMPLAINTS History of Present Illness Hx of present illness REMAINS ON THE VENT Vitals Vitals Vital Signs Date Time Temp Pulse Resp B/P (MAP) Pulse Ox O2 Delivery O2 Flow Rate FiO2 03/22/21 08:06 96 Ventilator 03/22/21 06:00 86 24 193/89 (123) 03/22/21 04:00 100.1 100.1 Weight Weight [ ] I.O. Intake and Output Intake and Output 03/22/21 07:00 Intake Total 2648.6 ml Output Total 5 ml Balance 2643.6 ml IV Total 531.6 ml Tube Feeding 1717 ml Other 400 ml Output Urine Total 5 ml Gastric Drainage Total 0 ml Labs Labs Laboratory Tests Test 03/21/21 12:38 03/21/21 17:52 03/21/21 23:34 03/22/21 05:30 Glucose (Fingerstick) 178 mg/dL (70-99) 123 mg/dL (70-99) 186 mg/dL (70-99) 178 mg/dL (70-99) White Blood Count 14.4 x10^3/uL (4.0-11.0) Red Blood Count 2.86 x10^6/uL (3.50-5.40) Hemoglobin 8.5 g/dL (12.0-15.5) Hematocrit 25.5 % (36.0-47.0) Mean Corpuscular Volume 89 fL (79-100) Mean Corpuscular Hemoglobin 30 pg (25-35) Mean Corpuscular Hemoglobin Concent 34 g/dL (31-37) Red Cell Distribution Width 15.2 % (11.5-14.5) Platelet Count 205 x10^3/uL (140-400) Neutrophils (%) (Auto) 73 % (31-73) Lymphocytes (%) (Auto) 11 % (24-48) Monocytes (%) (Auto) 7 % (0-9) Eosinophils (%) (Auto) 8 % (0-3) Basophils (%) (Auto) 1 % (0-3) Neutrophils # (Auto) 10.5 x10^3/uL (1.8-7.7) Lymphocytes # (Auto) 1.6 x10^3/uL (1.0-4.8) Monocytes # (Auto) 1.1 x10^3/uL (0.0-1.1) Eosinophils # (Auto) 1.1 x10^3/uL (0.0-0.7) Basophils # (Auto) 0.2 x10^3/uL (0.0-0.2) Sodium Level 136 mmol/L (136-145) Potassium Level 3.4 mmol/L (3.5-5.1) Chloride Level 98 mmol/L (98-107) Carbon Dioxide Level 28 mmol/L (21-32) Anion Gap 10 (6-14) Blood Urea Nitrogen 19 mg/dL (7-20) Creatinine 2.5 mg/dL (0.6-1.0) Estimated GFR (Cockcroft-Gault) 20.8 Glucose Level 177 mg/dL (70-99) Calcium Level 8.8 mg/dL (8.5-10.1) Test 03/22/21 08:25 O2 Saturation 95 % (92-99) Arterial Blood pH 7.47 (7.35-7.45) Arterial Blood pH (Temp corrected) 7.45 Arterial Blood pCO2 at Patient Temp 37 mmHg (35-46) Arterial Blood pCO2 (Temp correct) 39 mmHg Arterial Blood pO2 at Patient Temp 74 mmHg (75-108) Arterial Blood pO2 (Temp corrected) 81 mmHg Arterial Blood HCO3 26 mmol/L (21-28) Arterial Blood Base Excess 2 mmol/L (-3-3) FiO2 45 Micro Micro Microbiology 03/16/21 Gram Stain Evaluation - Final, Complete 03/16/21 Respiratory Culture - Final, Complete 03/16/21 Antimicrobic Susceptibility - Final, Complete 03/16/21 Blood Culture - Final, Complete NO GROWTH AFTER 5 DAYS 03/04/21 Urine Culture - Final, Complete Review of Systems Constitutional: yes: unresponsive Physical Exam General Appearance: no apparent distress Skin: warm Respiratory: decreased breath sounds Heart: S1S2 Abdomen: soft, bowel sounds present Extremities: pulses present Neurology: alert Assessment Assessment IMP [id number] HEMATURIA GLUCOSURIA MET AND RESP ACIDOSIS WITH ACIDEMIA COVID 19 PNEUMONIA ACUTE RESP FAILURE DM II HTN OBESITY ANEMIA GENERALIZED EDEMA LEUCOCYTOSIS HYPOKALEMIA PLAN HD TOMORROW PRBC NEEDED MONITOR FOR RENAL RECOVERY-STILL ANURIC ANTIBIOTICS ID EVAL AND TX CONT TF AND WATER FLUSHES WILL AVOID DOYLE DUE TO THROMBOGENIC STATE VENT SUPPORT WILL FOLLOW COLLIN ROLON MD Mar 22, 2021 10:05
[2021-03-22] MEDS: hydrALAZINE 20 MG/ML VIAL. IVP PRN (10:08)
--- NOTE | 2021-03-22 10:55 | PDOC ---
[facility] PROGRESS NOTE Date of Service DOS: DATE: 03/22/21 TIME: 10:39 Chief Complaint Chief Complaint CC: Covid-19 DKA Hypotension Nausea Vomiting Combined metabolic and respiratory acidosis Acute electrolyte derangementhyponatremia, hypochloremia due to volume depletion Hyperglycemia BOB Erythrocytosis Candiduria Sacral decubitus ulcer History of Present Illness History of Present Illness Ms Borges is a 46 year old female who presented with nausea/vomiting since 7 AM 02/06/2021 in the morning. Patient stated that her recently tested positive for Covid. She states that he "coughed in my face because he thought it was funny." She reports subjective fevers and chills and nausea/vomiting. Denies sore throat, cough, shortness of breath. No chest pain. Does have some upper abdominal discomfort after vomiting, that she attributes to muscular strain. She was not vaccinated for Covid. 02/08: No acute events overnight. Patient seen and examined bedside and resting comfortably. Continues to complain of nausea not able to tolerate any diet at this time. Saturating 98% on room air. Patient's chart, labs, images were reviewed and discussed with RN 02/09: Afebrile, currently breathing on room air. Still with complaints of nausea and vomiting x3 today. States that she has history of similar symptoms that have been mildly improved with IV Dilaudid. 02/10: Patient febrile today with T-max 102.2 F. She still admits to nausea, denies any further vomiting. We will continue to provide supportive care and monitor for any recurrent fevers overnight. Patient continues to improve may discharge tomorrow to continue self-isolation. 02/11: Febrile overnight, T-max 102.3 F. She did become hypoxic overnight, currently breathing on 4 L nasal cannula. Also admits to associated vomiting or diarrhea overnight. Discussed with RN, will initiate remdesivir and closely monitor LFTs. IV Decadron, and prophylactic antibiotics. 02/12: Low-grade fever overnight, T-max 99.7. Currently breathing on room air. Will discontinue remdesivir, steroids, and antibiotics; will observe overnight. Still with complaints of vomiting x1 and diarrhea. We will continue to provide supportive care and hope to discharge in the next day or so. 02/13: Afebrile. Still complains of intermittent diarrhea. At the time of my evaluation she was breathing on 6 L nasal cannula; this is somewhat misleading as patient states that she did not feel short of breath but was placed on 6 L by nursing staff overnight. 02/14: Afebrile, currently breathing on 8 L nasal cannula. There has been some misleading documentation, chart oxygen this patient is requiring. Discussed with RN, will resume remdesivir to complete total of 5 days. Continue to monitor LFTs. Will add steroids, Rocephin, and azithromycin. 02/15: Afebrile. Became much more hypoxic overnight, requiring BiPAP. At the time of my evaluation she is still breathing on BiPAP. Consultation was placed to pulmonology. Had discussion with Dr. Myrick about initiating Tocilizumab 02/16: No acute events overnight. Patient becoming more hypoxic saturating 94% and requiring BiPAP. Patient will be transferred to the ICU at this time. For worsening clinical status. Discussed with pulmonary. Patient's chart, labs, images were reviewed and discussed with RN 02/17: Transferred to ICU yesterday afternoon. Seen and examined at bedside she remains on 100% FiO2 on BiPAP. Respirations do appear somewhat labored. Dia pect intubation may be impending. We will closely monitor. Increase lisinopril to 20 today. 02/18: Patient required intubation yesterday afternoon. Saw and examined this morning. She is intubated and sedated. Increase insulin today. Covid protocol ordered. Wean as tolerated. Plan of care discussed with bedside nurse. 02/19: Bedside. She remains intubated and sedated. Continue Covid protocol. Wean oxygen sedation as tolerated. Pulmonary following. Plan of care discussed with bedside RN. 02/20: Patient seen and examined at bedside. She remains intubated and sedated. No major clinical changes. Continue current treatment. Pulmonary following. Plan of care discussed with bedside RN. 02/21: Patient seen and examined at bedside. Remains intubated and sedated date and admission clinical changes. Increase free water flushes today due to hypernatremia. Plan of care discussed with bedside nurse. 02/22: Patient seen and examined at bedside. O2 requirement actually improving, although remains intubated. Possible SBT in the coming days. Hypernatremia improving. Plan of care discussed bedside RN. 02/23: Patient remains in ICU on ventilator with FiO2 100%, PEEP 7. Repeat chest x-ray yesterday showed diffuse bilateral pulmonary opacities with no interval improvement. Will discontinue Rocephin and initiate Zosyn. We will continue IV steroids for a full 10-day course 02/24: Afebrile. On vent with FiO2 40%, PEEP 6. Her Coreg has been held due to persistent bradycardia. No documented history of systolic heart failure or previous echocardiogram. Will need to obtain echocardiogram prior to discharge. Continue IV steroids and antibiotics. 02/25: Afebrile. Remains ventilated with FiO2 45%, PEEP 6. Chest x-ray today showed slight improvement of the pulmonary infiltrates, no pneumothorax. Completed 10-day course of IV Decadron. Will initiate slow Solu-Medrol taper. Continue IV Zosyn. Continue supportive care. 02/26: Afebrile. On vent with FiO2 45%, PEEP 6. Completed 10 days of IV Decadron. Will continue IV Zosyn. Continue supportive care. Critical care time 30 minutes spent reviewing charts, reviewing imaging, reviewing labs, discussion with RN. 02/27: Afebrile. On vent with FiO2 45%, PEEP 6. Completed 10 days of steroids and completed remdesivir. Continue with IV Zosyn. CPAP trial yesterday. Continue NG tube and supportive care. 02/28:. Patient remains on vent with FiO2 40%, PEEP 5. Afebrile. Completed steroids and remdesivir. Some noted hypoglycemia overnight, will de-escalate basal insulin. Continue IV Zosyn. Ventilator management per pulmonology. Continue NG tube and supportive care. 03/01: On vent with FiO2 40%, PEEP 5. Afebrile. Completed steroids and remdesivir. Blood glucose well controlled. Continue empiric antibiotics with Zosyn. Ventilator management per pulmonology. Continue NG tube and supportive care. 03/02: No acute events overnight. Patient hypotensive the morning due to oversedation. Will wean off sedation and keep antihypertensive medications on board. Currently saturating 100% on vent settings of 18/450/40/5. Will attempt spontaneous breathing trial today to see how patient does. 03/03: No acute events overnight. Patient saturating 98% on vent settings of 18/450/40/5. Will defer spontaneous breathing trials to pulmonary at this time. Patient's chart, labs, images were reviewed and discussed with RN 03/04: No acute events overnight. Patient saturating 9 9% on vent settings of 18/450/30/5. Patient currently is unable to tolerate weaning. Per pulmonary. Patient's chart, labs, images were reviewed and discussed with RN 8: No acute events overnight. Patient is saturating 97% on vent settings of 18/450/55/5. Her FiO2 needs to be increased due to abnormal ABG with 7.3 //24. Patient's chart, labs, images were reviewed and discussed with RN 8: No acute events overnight. Patient saturating 94% on vent settings of 18/450/55/5. Chest x-ray showing increase in pulmonary infiltrates. Wound care is consulted for decubitus ulcer patient's chart, labs, images were reviewed and discussed with RN 8: No acute events overnight. Patient saturating 94% on vent settings of 20/450/70/8. Patient now heading into renal failure with her creatinine bumped up from 1.5-4.2. Decreased urine output. Plan for hemodialysis today and temporary catheter placement and nephrology is consulted. 03/08: No acute events overnight. Patient did have a nausea vomiting episode and tube feeds were held. KUB repeat shows NG tube still in the stomach. Will resume tube feeds at trickle and advance to goal today. Will start hemodialysis soon. 03/09: Seen on vent 20/450/60%/8. ABG 7.2 WBC 11.4, Hb 7.4, platelets 188, NA 131, K4.9, BUN 48, CR 51, glucose 199, phosphorus 7.9, mag 2.2, AST 265 ALT 219, albumin 1.1. Chest radiograph appears unchanged from prior. Dialysis x1 today 03/10: Afebrile. Seen on vent, 20/450/60/7 with ABG 7.3 . Tolerated dialysis well on 03/09. LFTs similar. 03/11: Afebrile. Seen on vent, sedated. Still requiring Levophed for BP support. WBC 16.7, Hb 8.1, NA 130, ABG 7.3 on 55% FiO2 PEEP 6. On Zosyn and Zyvox Diflucan. Dialysis today 03/12: Afebrile. Still requiring Levophed for BP support sedated with Versed febrile Precedex. WBC 16.1, Hb 8.5, platelets 185, NA 133. Trach plan tentatively 03/17. O2 saturations 93% on 50% FiO2 PEEP 6. ABG 7.38/35/79 On Zosyn and Zyvox Diflucan. 03/13: Afebrile. Still on Levophed for BP support lightly sedated. 7./ on 45% FiO2. Plan for dialysis today. On Zosyn and Zyvox Diflucan. More swollen today. 03/14: Afebrile. Weaning down off Levophed. WBC 14.9 NA 132. O2 saturations 92% on 45% FiO2 PEEP 5. Afebrile. O2 saturations 91% on FiO2 45% PEEP 6. Continued on Zosyn and Zyvox Diflucan. Tentative trach planned 03/17/2021 CC time 31 minutes 03/16/21: Patient seen and examined in ICU. Periorbital as well as upper and lower extremity edema noted. OG feed running at 30cc/hr. Still on vent on pressure control with a rate of 24 with 45% FiO2. Patient has rectal bag. Currently she has 98% O2 sat. Currently sedated with Dexmedetomidine, Propofol, Versed, and Fentanyl. Discussed with RN. Chart reviewed. 03/17/21: Patient was seen and examined in the ICU today. Periorbital edema as well as abdominal and mons pubis edema was noted. Patient still on vent on pressure control with Fi02 of 45% plus 6 PEEP. Patient had rectal bag. Currently sedated on Dexmedetomidine, Propofol, Versed, and Fentanyl. Discussed with RN. Chart reviewed. 03/18/21: Patient seen and examined in ICU. On vent via trach that was placed yesterday. Vent settings are Pressure Control of 40 with FiO2 of 45% and 6 PEEP. Trach clean and dry. Orbital swelling still present. Pupils are sluggish. Patient on TPN running at 30cc/hr. Kern to bedside and rectal bag in place. Current O2 sat at 94%. Sedated on Dexmedetomidine, Propofol, Versed, and Fentanyl. Discussed with RN. Chart reviewed. 03/19/21: Patient was seen and examined in the ICU today. Currently on vent via trach on pressure control of 42, rate of 24, FiO2 of 45%, and 6 PEEP. O2 sat is at 97% while patient is being examined. Trach is clean and dry. PICC line is in place on right arm. Periorbital swelling has decreased slightly since examined yesterday. Patient is sedated on Dexmedetomidine, Propofol, Versed, and Fentanyl. Discussed with RN. Chart reviewed. 03/20/21: Patient seen and examined in the ICU. Periorbital edema is slightly decreased since yesterday. O2 sat while being examined was 93%. NG tube in place and running at 30cc/hr. Patient on vent via trach on pressure control of 40 with FiO2 of 45 and rate of 24. Sedated on Dexmedetomidine, Propofol, Versed, and Fentanyl. PICC line in place. Kern to bedside. Rectal bag present. Discussed with RN. Chart reviewed. 03/21/21: Patient was seen and examined in the ICU today. She was semi-sedated.. She was on Dexmedetomidine and Fentanyl. We are holding the Propofol. Her eyes were periodically open but she was not making meaningful eye contact or tracking. On vent via trach with pressure control of 40 and FiO2 at 45. Rate was 24. PEEP was 5. Trach was clean and dry. While being examined, her O2 sat was 94%. Rectal bag and Kern to bedside in place. NG tube in place and feeding at 30cc/hr. IV fluids still running. Levophed has been stopped. Discussed with RN. Chart reviewed. 03/22/21: Patient was seen and examined in the ICU. She was semi-sedated on Propofol and Dexmedetomidine. Her eyes were open but she did not make meaningful eye contact. Her blood pressure was elevated (198/102) while being examined and she had just been given hydralazine to lower it. There are plans to place a PEG tube tomorrow. Currently on vent via trach on pressure control of 40 with FiO2 of 45%, 5 PEEP, and a rate of 24. Current O2 sat is 98%. She is feeding through an NG tube at 30cc/hr. Rectal bag and Kern to bedside present. SCDs on patient for DVT prophylaxis. She did not do her daily dialysis today but the plan is to start back on that tomorrow. Discussed with RN. Chart reviewed. Vitals/I&O Vitals/I&O: Vital Signs Date Time Temp Pulse Resp B/P (MAP) Pulse Ox O2 Delivery O2 Flow Rate FiO2 03/22/21 10:08 87 189/102 03/22/21 08:06 96 Ventilator 03/22/21 06:00 24 03/22/21 04:00 100.1 100.1 I & O 03/21/21 03/21/21 03/22/21 15:00 23:00 07:00 Intake Total 400 ml 1307.9 ml 940.7 ml Output Total 0 ml 0 ml 5 ml Balance 400 ml 1307.9 ml 935.7 ml Physical Exam Physical Exam: GENERAL: Intubated and sedated. Trach HEENT: Normocephalic, atraumatic. Anicteric. Slight bilateral periorbital edema. Neck right IJ HDC clean LUNGS: Rhonchi. HEART: S1, S2. No murmurs. ABDOMEN: Obese, soft. Bowel sounds present. Nontender, nondistended. Abdominal and mons pubis edema noted. GENITOURINARY: Kern and fecal tube in place. EXTREMITIES: Edema present no cyanosis. CENTRAL NERVOUS SYSTEM: Intubated. PSYCHIATRIC: Unable to assess. Derm has pressure wounds wound pictures noted in chart. Generalized rash, PICC line , right IJ HDC clean General: Other (SEDATED) Heart: Regular rate, Normal S1, Normal S2, No murmurs, Gallops Lungs: Clear Abdomen: Normal bowel sounds, Soft, No tenderness, No hepatosplenomegaly, No masses Extremities: Other (ANASARCA) Skin: No rashes, No significant lesion Labs Labs: Laboratory Tests Test 03/21/21 12:38 03/21/21 17:52 03/21/21 23:34 03/22/21 05:30 Glucose (Fingerstick) 178 mg/dL (70-99) 123 mg/dL (70-99) 186 mg/dL (70-99) 178 mg/dL (70-99) White Blood Count 14.4 x10^3/uL (4.0-11.0) Red Blood Count 2.86 x10^6/uL (3.50-5.40) Hemoglobin 8.5 g/dL (12.0-15.5) Hematocrit 25.5 % (36.0-47.0) Mean Corpuscular Volume 89 fL (79-100) Mean Corpuscular Hemoglobin 30 pg (25-35) Mean Corpuscular Hemoglobin Concent 34 g/dL (31-37) Red Cell Distribution Width 15.2 % (11.5-14.5) Platelet Count 205 x10^3/uL (140-400) Neutrophils (%) (Auto) 73 % (31-73) Lymphocytes (%) (Auto) 11 % (24-48) Monocytes (%) (Auto) 7 % (0-9) Eosinophils (%) (Auto) 8 % (0-3) Basophils (%) (Auto) 1 % (0-3) Neutrophils # (Auto) 10.5 x10^3/uL (1.8-7.7) Lymphocytes # (Auto) 1.6 x10^3/uL (1.0-4.8) Monocytes # (Auto) 1.1 x10^3/uL (0.0-1.1) Eosinophils # (Auto) 1.1 x10^3/uL (0.0-0.7) Basophils # (Auto) 0.2 x10^3/uL (0.0-0.2) Sodium Level 136 mmol/L (136-145) Potassium Level 3.4 mmol/L (3.5-5.1) Chloride Level 98 mmol/L (98-107) Carbon Dioxide Level 28 mmol/L (21-32) Anion Gap 10 (6-14) Blood Urea Nitrogen 19 mg/dL (7-20) Creatinine 2.5 mg/dL (0.6-1.0) Estimated GFR (Cockcroft-Gault) 20.8 Glucose Level 177 mg/dL (70-99) Calcium Level 8.8 mg/dL (8.5-10.1) Test 03/22/21 08:25 O2 Saturation 95 % (92-99) Arterial Blood pH 7.47 (7.35-7.45) Arterial Blood pH (Temp corrected) 7.45 Arterial Blood pCO2 at Patient Temp 37 mmHg (35-46) Arterial Blood pCO2 (Temp correct) 39 mmHg Arterial Blood pO2 at Patient Temp 74 mmHg (75-108) Arterial Blood pO2 (Temp corrected) 81 mmHg Arterial Blood HCO3 26 mmol/L (21-28) Arterial Blood Base Excess 2 mmol/L (-3-3) FiO2 45 Review of Systems Review of Systems: GI: no nausea. no vomiting. Eyes: no changes in vision. no blurry vision. Assessment and Plan Assessmemt and Plan Problems Medical Problems: (1) Ketoacidosis Status: Acute Covid-19 DKA Hypotension Nausea Vomiting Combined metabolic and respiratory acidosis Acute electrolyte derangementhyponatremia, hypochloremia due to volume depletion Hyperglycemia BOB Erythrocytosis Candiduria Sacral decubitus ulcer Plan: 0) probable PEG tomorrow 1. ICU monitoring 2. Vent weaning 3. Continue sedation (Dexmedetomidine and Fentanyl) 4. Covid protocol ((Remdesivir completed on February 18. Got dexamethasone from February 11 to February 15) Currently on meropenem, vitamins and minerals, and Robitussin. Added daptomycin and micafungin) 5. Trend labs 6. DVT prophylaxis 7. Appreciate subspecialist input 8. Prognosis guarded CC time 32 minutes Comment Review of Relevant I have reviewed the following items mazin (where applicable) has been applied. Medications: Current Medications Medications (Trade) Dose Ordered Sig/Pepe Route PRN Reason Start Time Stop Time Status Last Admin Dose Admin Albumin Human 200 ml @ 200 mls/hr 1X PRN PRN IV Hypotension 03/21/21 14:45 03/21/21 20:44 DC 03/21/21 15:36 Daptomycin 480 mg/ Sodium Chloride 50 ml @ 100 mls/hr QTUTHSA@1900 IV 03/21/21 19:00 03/21/21 20:17 Micafungin Sodium 100 mg/Dextrose 100 ml @ 100 mls/hr Q24H IV 03/21/21 18:00 03/21/21 19:12 Justifications for Admission Other Justification DIANELYS BLACKMON III DO Mar 22, 2021 10:54
--- NOTE | 2021-03-22 11:20 | PDOC ---
PULMONARY PROGRESS NOTES DATE: 03/22/21 TIME: 11:18 Subjective pt. remain on vent support afebrile no overnight concerns Did not tolerated coming off sedation well. Had increased blood pressure. Vitals Vital Signs Date Time Temp Pulse Resp B/P (MAP) Pulse Ox O2 Delivery O2 Flow Rate FiO2 03/22/21 10:08 87 189/102 03/22/21 08:06 96 Ventilator 03/22/21 06:00 24 03/22/21 04:00 100.1 100.1 Lungs: Clear Cardiovascular: S1 Abdomen: Soft Skin: Warm Labs Laboratory Tests Test 03/20/21 13:06 03/20/21 18:09 03/20/21 23:32 03/21/21 05:30 Glucose (Fingerstick) 188 mg/dL (70-99) 127 mg/dL (70-99) 164 mg/dL (70-99) White Blood Count 12.5 x10^3/uL (4.0-11.0) Red Blood Count 2.69 x10^6/uL (3.50-5.40) Hemoglobin 8.1 g/dL (12.0-15.5) Hematocrit 23.9 % (36.0-47.0) Mean Corpuscular Volume 89 fL (79-100) Mean Corpuscular Hemoglobin 30 pg (25-35) Mean Corpuscular Hemoglobin Concent 34 g/dL (31-37) Red Cell Distribution Width 15.1 % (11.5-14.5) Platelet Count 171 x10^3/uL (140-400) Neutrophils (%) (Auto) 71 % (31-73) Lymphocytes (%) (Auto) 12 % (24-48) Monocytes (%) (Auto) 6 % (0-9) Eosinophils (%) (Auto) 10 % (0-3) Basophils (%) (Auto) 1 % (0-3) Neutrophils # (Auto) 8.9 x10^3/uL (1.8-7.7) Lymphocytes # (Auto) 1.6 x10^3/uL (1.0-4.8) Monocytes # (Auto) 0.8 x10^3/uL (0.0-1.1) Eosinophils # (Auto) 1.2 x10^3/uL (0.0-0.7) Basophils # (Auto) 0.1 x10^3/uL (0.0-0.2) Sodium Level 138 mmol/L (136-145) Potassium Level 4.1 mmol/L (3.5-5.1) Chloride Level 100 mmol/L (98-107) Carbon Dioxide Level 29 mmol/L (21-32) Anion Gap 9 (6-14) Blood Urea Nitrogen 16 mg/dL (7-20) Creatinine 2.7 mg/dL (0.6-1.0) Estimated GFR (Cockcroft-Gault) 19.1 Glucose Level 173 mg/dL (70-99) Calcium Level 8.5 mg/dL (8.5-10.1) Test 03/21/21 09:20 03/21/21 12:38 03/21/21 17:52 03/21/21 23:34 O2 Saturation 91 % (92-99) Arterial Blood pH 7.44 (7.35-7.45) Arterial Blood pCO2 at Patient Temp 38 mmHg (35-46) Arterial Blood pO2 at Patient Temp 62 mmHg (75-108) Arterial Blood HCO3 26 mmol/L (21-28) Arterial Blood Base Excess 2 mmol/L (-3-3) FiO2 45 Glucose (Fingerstick) 178 mg/dL (70-99) 123 mg/dL (70-99) 186 mg/dL (70-99) Test 03/22/21 05:30 03/22/21 08:25 White Blood Count 14.4 x10^3/uL (4.0-11.0) Red Blood Count 2.86 x10^6/uL (3.50-5.40) Hemoglobin 8.5 g/dL (12.0-15.5) Hematocrit 25.5 % (36.0-47.0) Mean Corpuscular Volume 89 fL (79-100) Mean Corpuscular Hemoglobin 30 pg (25-35) Mean Corpuscular Hemoglobin Concent 34 g/dL (31-37) Red Cell Distribution Width 15.2 % (11.5-14.5) Platelet Count 205 x10^3/uL (140-400) Neutrophils (%) (Auto) 73 % (31-73) Lymphocytes (%) (Auto) 11 % (24-48) Monocytes (%) (Auto) 7 % (0-9) Eosinophils (%) (Auto) 8 % (0-3) Basophils (%) (Auto) 1 % (0-3) Neutrophils # (Auto) 10.5 x10^3/uL (1.8-7.7) Lymphocytes # (Auto) 1.6 x10^3/uL (1.0-4.8) Monocytes # (Auto) 1.1 x10^3/uL (0.0-1.1) Eosinophils # (Auto) 1.1 x10^3/uL (0.0-0.7) Basophils # (Auto) 0.2 x10^3/uL (0.0-0.2) Sodium Level 136 mmol/L (136-145) Potassium Level 3.4 mmol/L (3.5-5.1) Chloride Level 98 mmol/L (98-107) Carbon Dioxide Level 28 mmol/L (21-32) Anion Gap 10 (6-14) Blood Urea Nitrogen 19 mg/dL (7-20) Creatinine 2.5 mg/dL (0.6-1.0) Estimated GFR (Cockcroft-Gault) 20.8 Glucose Level 177 mg/dL (70-99) Glucose (Fingerstick) 178 mg/dL (70-99) Calcium Level 8.8 mg/dL (8.5-10.1) O2 Saturation 95 % (92-99) Arterial Blood pH 7.47 (7.35-7.45) Arterial Blood pH (Temp corrected) 7.45 Arterial Blood pCO2 at Patient Temp 37 mmHg (35-46) Arterial Blood pCO2 (Temp correct) 39 mmHg Arterial Blood pO2 at Patient Temp 74 mmHg (75-108) Arterial Blood pO2 (Temp corrected) 81 mmHg Arterial Blood HCO3 26 mmol/L (21-28) Arterial Blood Base Excess 2 mmol/L (-3-3) FiO2 45 Laboratory Tests Test 03/21/21 12:38 03/21/21 17:52 03/21/21 23:34 03/22/21 05:30 Glucose (Fingerstick) 178 mg/dL (70-99) 123 mg/dL (70-99) 186 mg/dL (70-99) 178 mg/dL (70-99) White Blood Count 14.4 x10^3/uL (4.0-11.0) Red Blood Count 2.86 x10^6/uL (3.50-5.40) Hemoglobin 8.5 g/dL (12.0-15.5) Hematocrit 25.5 % (36.0-47.0) Mean Corpuscular Volume 89 fL (79-100) Mean Corpuscular Hemoglobin 30 pg (25-35) Mean Corpuscular Hemoglobin Concent 34 g/dL (31-37) Red Cell Distribution Width 15.2 % (11.5-14.5) Platelet Count 205 x10^3/uL (140-400) Neutrophils (%) (Auto) 73 % (31-73) Lymphocytes (%) (Auto) 11 % (24-48) Monocytes (%) (Auto) 7 % (0-9) Eosinophils (%) (Auto) 8 % (0-3) Basophils (%) (Auto) 1 % (0-3) Neutrophils # (Auto) 10.5 x10^3/uL (1.8-7.7) Lymphocytes # (Auto) 1.6 x10^3/uL (1.0-4.8) Monocytes # (Auto) 1.1 x10^3/uL (0.0-1.1) Eosinophils # (Auto) 1.1 x10^3/uL (0.0-0.7) Basophils # (Auto) 0.2 x10^3/uL (0.0-0.2) Sodium Level 136 mmol/L (136-145) Potassium Level 3.4 mmol/L (3.5-5.1) Chloride Level 98 mmol/L (98-107) Carbon Dioxide Level 28 mmol/L (21-32) Anion Gap 10 (6-14) Blood Urea Nitrogen 19 mg/dL (7-20) Creatinine 2.5 mg/dL (0.6-1.0) Estimated GFR (Cockcroft-Gault) 20.8 Glucose Level 177 mg/dL (70-99) Calcium Level 8.8 mg/dL (8.5-10.1) Test 03/22/21 08:25 O2 Saturation 95 % (92-99) Arterial Blood pH 7.47 (7.35-7.45) Arterial Blood pH (Temp corrected) 7.45 Arterial Blood pCO2 at Patient Temp 37 mmHg (35-46) Arterial Blood pCO2 (Temp correct) 39 mmHg Arterial Blood pO2 at Patient Temp 74 mmHg (75-108) Arterial Blood pO2 (Temp corrected) 81 mmHg Arterial Blood HCO3 26 mmol/L (21-28) Arterial Blood Base Excess 2 mmol/L (-3-3) FiO2 45 Medications Active Scripts Medications Dose Route/Sig Max Daily Dose Days Date Category Novolog Flexpen (Insulin Aspart) 100 Unit/1 Ml Insuln.pen 3-7 SQ TIDACHC 02/07/21 Reported Lisinopril 5 Mg Tablet 1 Tab PO DAILY 02/07/21 Reported Lantus Solostar (Insulin Glargine,Hum.rec.anlog) 100 Unit/1 Ml Insuln.pen 5 Unit SQ QHS 04/09/15 Reported Atorvastatin Calcium 40 Mg Tablet 40 Mg PO HS 04/09/15 Reported Comments 03/20/21 CXR IMPRESSION: Continued presence of diffuse pulmonary opacities bilaterally without interval improvement. Impression . IMPRESSION: 1. Acute hypoxic respiratory failure secondary to COVID-19 viral pneumonia/acute lung injury and early acute respiratory distress syndrome. S/P intubation 02/17/21 2. Nonsmoker. 3. Abnormal chest x-ray consistent with COVID-19 viral pneumonia.--- 4. Diabetic ketoacidosis--resolved 5. Underlying obesity contributing to hypoxia as well. 6. BOB worsening hemodialysis started 03/07 7. Fever, per ID--resolved 8. Abnormal chest x-ray with diffuse interstitial infiltrates compatible with viral pneumonia 9. [place] in the sputum is a contamination 10. Septic shock--resolved Plan . Updated 03/22/21 Continue current vent support, currently on 45% in PC mode. We will ask respiratory to switch her to volume control mode in a.m. Did not tolerated coming off sedation well with increasing blood pressure. Currently on low-dose fentanyl and Precedex drip. Follow CXR/ABG Follow nephrology recs Monitor HBG , follow GI recs Follow ID recs for ABX DVT/GI PPX D/W RN and RT PEG tube is a scheduled for tomorrow and after that she should be stable for LTAC transfer Updated 03/21/21 Continue current vent support, currently on 45% in PC mode Discontinue sedation and assess mental status. Once more awake CPAP trial. Follow CXR/ABG Follow nephrology recs Monitor HBG , follow GI recs Follow ID recs for ABX DVT/GI PPX D/W RN and RT Updated 03/20/21 Continue current vent support, currently on 45% in PC mode will reduce to 40% and change to 1:2 IE ratio Reduce sedation and assess mental status Follow CXR/ABG Follow nephrology recs Monitor HBG , follow GI recs Follow ID recs for ABX DVT/GI PPX D/W RN and RT Updated 03/[address] Whitley On exam she appears to be less puffy Finish course of remdesivir and dexamethasone Hemodialysis DVT GI prophylaxis Off pressors Chest x-ray reviewed, no significant change, 03/18 updated 03/18 Continue current mechanical support Hemodialysis per Dr. Sims Nutritional support DVT GI prophylaxis EMILY POSADA MD Mar 22, 2021 11:20
--- NOTE | 2021-03-22 11:21 | PDOC ---
Infectious Disease Note Subjective Subjective Pt intubated sedated Status post tracheostomy Continues to have fever ROS ROS No nausea vomiting Vital Sign Vital Signs Vital Signs Date Time Temp Pulse Resp B/P (MAP) Pulse Ox O2 Delivery O2 Flow Rate FiO2 03/22/21 10:08 87 189/102 03/22/21 08:06 96 Ventilator 03/22/21 06:00 24 03/22/21 04:00 100.1 100.1 Physical Exam PHYSICAL EXAM GENERAL: Intubated and sedated. Trach HEENT: Normocephalic, atraumatic. Anicteric. Slight bilateral periorbital edema. Neck right IJ HDC clean LUNGS: Rhonchi. HEART: S1, S2. No murmurs. ABDOMEN: Obese, soft. Bowel sounds present. Nontender, nondistended. Abdominal and mons pubis edema noted. GENITOURINARY: Kern and fecal tube in place. EXTREMITIES: Edema present no cyanosis. CENTRAL NERVOUS SYSTEM: Intubated. PSYCHIATRIC: Unable to assess. Derm has pressure wounds wound pictures noted in chart. Generalized rash, PICC line , right IJ HDC clean Labs Lab Laboratory Tests Test 03/21/21 12:38 03/21/21 17:52 03/21/21 23:34 03/22/21 05:30 Glucose (Fingerstick) 178 mg/dL (70-99) 123 mg/dL (70-99) 186 mg/dL (70-99) 178 mg/dL (70-99) White Blood Count 14.4 x10^3/uL (4.0-11.0) Red Blood Count 2.86 x10^6/uL (3.50-5.40) Hemoglobin 8.5 g/dL (12.0-15.5) Hematocrit 25.5 % (36.0-47.0) Mean Corpuscular Volume 89 fL (79-100) Mean Corpuscular Hemoglobin 30 pg (25-35) Mean Corpuscular Hemoglobin Concent 34 g/dL (31-37) Red Cell Distribution Width 15.2 % (11.5-14.5) Platelet Count 205 x10^3/uL (140-400) Neutrophils (%) (Auto) 73 % (31-73) Lymphocytes (%) (Auto) 11 % (24-48) Monocytes (%) (Auto) 7 % (0-9) Eosinophils (%) (Auto) 8 % (0-3) Basophils (%) (Auto) 1 % (0-3) Neutrophils # (Auto) 10.5 x10^3/uL (1.8-7.7) Lymphocytes # (Auto) 1.6 x10^3/uL (1.0-4.8) Monocytes # (Auto) 1.1 x10^3/uL (0.0-1.1) Eosinophils # (Auto) 1.1 x10^3/uL (0.0-0.7) Basophils # (Auto) 0.2 x10^3/uL (0.0-0.2) Sodium Level 136 mmol/L (136-145) Potassium Level 3.4 mmol/L (3.5-5.1) Chloride Level 98 mmol/L (98-107) Carbon Dioxide Level 28 mmol/L (21-32) Anion Gap 10 (6-14) Blood Urea Nitrogen 19 mg/dL (7-20) Creatinine 2.5 mg/dL (0.6-1.0) Estimated GFR (Cockcroft-Gault) 20.8 Glucose Level 177 mg/dL (70-99) Calcium Level 8.8 mg/dL (8.5-10.1) Test 03/22/21 08:25 O2 Saturation 95 % (92-99) Arterial Blood pH 7.47 (7.35-7.45) Arterial Blood pH (Temp corrected) 7.45 Arterial Blood pCO2 at Patient Temp 37 mmHg (35-46) Arterial Blood pCO2 (Temp correct) 39 mmHg Arterial Blood pO2 at Patient Temp 74 mmHg (75-108) Arterial Blood pO2 (Temp corrected) 81 mmHg Arterial Blood HCO3 26 mmol/L (21-28) Arterial Blood Base Excess 2 mmol/L (-3-3) FiO2 45 Micro GRAM STAIN EVALUATION Final Final This specimen is of good quality and is acceptable for routine bacterial culture. Culture results to follow. NO ORGANISMS SEEN. SQUAMOUS EPI CELL:RARE PMN (WBCs):MODERATE Unless otherwise specified, Testing Performed by: [facility] [address] [place] [address] For Inquires, the Physician may contact the Microbiology department at [phone] RESPIRATORY CULTURE Final Final MODERATE GRAM NEGATIVE RODS on 03/18/21 at 1120 FINAL ID= [ACINETOBACTER [email or web address].] ACINETOBACTER URSINGII. ANTIMICROBIAL SUSCEPTIBILITY Final Comment NEG SAGE 56 ACINETOBACTER URSINGII. ANTIBIOTIC RESULT INTERPRETATION AMPICILLIN/SULBACTAM <=4/2 S AMIKACIN <=16 S CEFTRIAXONE 2 S CEFTAZIDIME 16 I CEFOTAXIME 16 I CIPROFLOXACIN <=0.25 S CEFEPIME 4 S GENTAMICIN <=2 S LEVOFLOXACIN <=0.5 S RUN DATE: 03/19/21 [facility] [employer] [facility] *LIVE* PAGE 2 RUN TIME: 1120 Specimen Inquiry SPEC: [id number] PATIENT: ARIADNA BANKS [id number] (Continued) Procedure Result CONTINUED ON NEXT PAGE RUN DATE: 03/19/21 [facility] *LIVE* PAGE 3 RUN TIME: 1120 Specimen Inquiry SPEC: [id number] PATIENT: ARIADNA BANKS [id number] (Continued) -- Procedure Result ANTIMICROBIAL SUSCEPTIBILITY Final (continued) MINOCYCLINE <=4 S MEROPENEM <=1 S TRIMETHOPRIM/SULFAMETHOXAZOLE <=0.5/9.5 S TOBRAMYCIN <=2 S Unless otherwise specified, Testing Performed by: [address] [address] For Inquires, the Physician may contact the Microbiology department at [phone] Objective Assessment 1. Febrile illness. Improved 2. COVID-19 infection present on date of admission, 02/06/2021. Status post remdesivir, dexamethasone. 3. Acute hypoxic respiratory failure, status post intubation. S/P Trach on 03/17 Trach cultures positive for Rock albicans and now acinebacter ursungi 4. Diabetes. 5. Diarrhea. 6. Hypertension. 7. Hyperlipidemia. 8. Anemia. 9. BOB on HD 10.UC rock albican, ua neg Plan Plan of Care Cont Meropenem add daptomycin and micafungin Follow-up lab ,cultures, C. diff PCR negative Kern changed per team Wound care per wound treatment Offload Continue supportive care. Awaiting PEG on Tuesday Prognosis guarded. D/W BLANCA CURIEL MD Mar 22, 2021 11:21
[2021-03-22] MEDS: MEROPENEM 1 GM in IV NORMAL SALINE 100ML 100 ML IV SCH (16:15)
[2021-03-22] MEDS: MICAFUNGIN 100 MG in IV DEXTROSE 5% 100ML 100 ML IV SCH (17:54)
[2021-03-22] MEDS: fentaNYL HIGH DOSE PCA 55 ML IV PRN (18:24)
[2021-03-22] MEDS: ATORVASTATIN CALCIUM 40 MG TABLET. PO SCH (21:08)
[2021-03-23] VITALS (28 sets, daily range): BP systolic 148–206; BP diastolic 65–103
[2021-03-23] MEDS: DEXMEDETOMIDINE 400 MCG in IV NORMAL SALINE 100ML 96 ML IV PRN ×6 (01:37→21:54)
[2021-03-23] MEDS: LABETALOL 20 MG/4 ML DISP.SYRIN. IVP PRN ×2 (02:28→21:45)
[2021-03-23] MEDS: hydrALAZINE 20 MG/ML VIAL. IVP PRN (04:05)
[2021-03-23 05:05] LABS: BASO # 0.3 x10^3/uL (0.0-0.2); BASO % 2 % (0-3); EOS # 1.6 x10^3/uL (0.0-0.7); EOS % 12 % (0-3); HEMATOCRIT 27.8 % (36.0-47.0); HEMOGLOBIN 9.1 g/dL (12.0-15.5); LYMPH # 1.4 x10^3/uL (1.0-4.8); LYMPH % 11 % (24-48); MEAN CORPUSCULAR HEMOGLOBIN 29 pg (25-35); MEAN CORPUSCULAR HGB CONC 33 g/dL (31-37); MEAN CORPUSCULAR VOLUME 90 fL (79-100); MONO # 1.1 x10^3/uL (0.0-1.1); MONO % 8 % (0-9); NEUT # 8.8 x10^3/uL (1.8-7.7); NEUT % 67 % (31-73); PLATELET COUNT 247 x10^3/uL (140-400); RED BLOOD COUNT 3.11 x10^6/uL (3.50-5.40); RED CELL DISTRIBUTION WIDTH 15.4 % (11.5-14.5); WHITE BLOOD COUNT 13.2 x10^3/uL (4.0-11.0)
[2021-03-23 05:26] LABS: CREATININE 3.6 mg/dL (0.6-1.0); GFR 13.7; POTASSIUM 3.7 mmol/L (3.5-5.1)
[2021-03-23] MEDS: HEPARIN for SUB-Q USE 5,000 UNIT/ML VIAL. SQ SCH ×3 (05:50→21:54)
[2021-03-23] MEDS ORDERED: IV RINGERS,LACTATED 1000ML 1,000 ML IV SCH (06:00)
[2021-03-23] MEDS: INSULIN LISPRO 300 UNITS/3 ML VIAL. SQ SCH ×3 (06:00→18:00)
[2021-03-23] MEDS ORDERED: fentaNYL PF VIAL 100 MCG/2 ML VIAL IVP PRN ×2 (06:00)
[2021-03-23 07:47] LABS: BASE EXCESS ABG 0 mmol/L (-3-3); HCO3 ABG 25 mmol/L (21-28); PCO2 ABG 39 mmHg (35-46); PO2 ABG 80 mmHg (75-108); SAT O2 ABG 95 % (92-99)
--- NOTE | 2021-03-23 07:52 | PDOC ---
Infectious Disease Note Subjective Subjective Pt intubated sedated Status post tracheostomy ROS ROS No nausea vomiting diarrhea Vital Sign Vital Signs Vital Signs Date Time Temp Pulse Resp B/P (MAP) Pulse Ox O2 Delivery O2 Flow Rate FiO2 03/23/21 07:34 97 Ventilator 03/23/21 06:00 76 24 175/65 (101) 03/23/21 04:00 98.2 98.2 03/22/21 18:54 90.0 Physical Exam PHYSICAL EXAM GENERAL: Intubated and sedated. Trach HEENT: Normocephalic, atraumatic. Anicteric. Slight bilateral periorbital edema. Neck right IJ HDC clean LUNGS: Rhonchi. HEART: S1, S2. No murmurs. ABDOMEN: Obese, soft. Bowel sounds present. Nontender, nondistended. Abdominal and mons pubis edema noted. GENITOURINARY: Kern and fecal tube in place. EXTREMITIES: Edema present no cyanosis. CENTRAL NERVOUS SYSTEM: Intubated. PSYCHIATRIC: Unable to assess. Derm has pressure wounds wound pictures noted in chart. Generalized rash, PICC line , right IJ HDC clean Labs Lab Laboratory Tests Test 03/22/21 08:25 03/22/21 11:53 03/22/21 17:53 03/22/21 23:48 O2 Saturation 95 % (92-99) Arterial Blood pH 7.47 (7.35-7.45) Arterial Blood pH (Temp corrected) 7.45 Arterial Blood pCO2 at Patient Temp 37 mmHg (35-46) Arterial Blood pCO2 (Temp correct) 39 mmHg Arterial Blood pO2 at Patient Temp 74 mmHg (75-108) Arterial Blood pO2 (Temp corrected) 81 mmHg Arterial Blood HCO3 26 mmol/L (21-28) Arterial Blood Base Excess 2 mmol/L (-3-3) FiO2 45 Glucose (Fingerstick) 174 mg/dL (70-99) 185 mg/dL (70-99) 174 mg/dL (70-99) Test 03/23/21 04:50 White Blood Count 13.2 x10^3/uL (4.0-11.0) Red Blood Count 3.11 x10^6/uL (3.50-5.40) Hemoglobin 9.1 g/dL (12.0-15.5) Hematocrit 27.8 % (36.0-47.0) Mean Corpuscular Volume 90 fL (79-100) Mean Corpuscular Hemoglobin 29 pg (25-35) Mean Corpuscular Hemoglobin Concent 33 g/dL (31-37) Red Cell Distribution Width 15.4 % (11.5-14.5) Platelet Count 247 x10^3/uL (140-400) Neutrophils (%) (Auto) 67 % (31-73) Lymphocytes (%) (Auto) 11 % (24-48) Monocytes (%) (Auto) 8 % (0-9) Eosinophils (%) (Auto) 12 % (0-3) Basophils (%) (Auto) 2 % (0-3) Neutrophils # (Auto) 8.8 x10^3/uL (1.8-7.7) Lymphocytes # (Auto) 1.4 x10^3/uL (1.0-4.8) Monocytes # (Auto) 1.1 x10^3/uL (0.0-1.1) Eosinophils # (Auto) 1.6 x10^3/uL (0.0-0.7) Basophils # (Auto) 0.3 x10^3/uL (0.0-0.2) Sodium Level 135 mmol/L (136-145) Potassium Level 3.7 mmol/L (3.5-5.1) Chloride Level 99 mmol/L (98-107) Carbon Dioxide Level 26 mmol/L (21-32) Anion Gap 10 (6-14) Blood Urea Nitrogen 34 mg/dL (7-20) Creatinine 3.6 mg/dL (0.6-1.0) Estimated GFR (Cockcroft-Gault) 13.7 Glucose Level 190 mg/dL (70-99) Calcium Level 9.0 mg/dL (8.5-10.1) Micro GRAM STAIN EVALUATION Final Final This specimen is of good quality and is acceptable for routine bacterial culture. Culture results to follow. NO ORGANISMS SEEN. SQUAMOUS EPI CELL:RARE PMN (WBCs):MODERATE Unless otherwise specified, Testing Performed by: [address] [address] For Inquires, the Physician may contact the Microbiology department at [phone] RESPIRATORY CULTURE Final Final MODERATE GRAM NEGATIVE RODS on 03/18/21 at 1121 FINAL ID= [ACINETOBACTER URSINGII.] ACINETOBACTER URSINGII. ANTIMICROBIAL SUSCEPTIBILITY Final Comment NEG SAGE 56 ACINETOBACTER GINAINGII. ANTIBIOTIC RESULT INTERPRETATION AMPICILLIN/SULBACTAM <=4/2 S AMIKACIN <=16 S CEFTRIAXONE 2 S CEFTAZIDIME 16 I CEFOTAXIME 16 I CIPROFLOXACIN <=0.25 S CEFEPIME 4 S GENTAMICIN <=2 S LEVOFLOXACIN <=0.5 S RUN DATE: 03/19/21 [facility] [employer] [facility] *LIVE* PAGE 2 RUN TIME: 1120 Specimen Inquiry SPEC: [id number] PATIENT: ARIADNA BANKS [id number] (Ana gusman) Procedure Result CONTINUED ON NEXT PAGE RUN DATE: 03/19/21 [facility] *LIVE* PAGE 3 RUN TIME: 1120 Specimen Inquiry SPEC: [id number] PATIENT: ARIADNA BANKS [id number] (Continued) - Procedure Result ANTIMICROBIAL SUSCEPTIBILITY Final (continued) MINOCYCLINE <=4 S MEROPENEM <=1 S TRIMETHOPRIM/SULFAMETHOXAZOLE <=0.5/9.5 S TOBRAMYCIN <=2 S Unless otherwise specified, Testing Performed by: [address] [address] For Inquires, the Physician may contact the Microbiology department at [phone] Objective Assessment 1. Febrile illness. Improved 2. COVID-19 infection present on date of admission, 02/06/2021. Status post remdesivir, dexamethasone. 3. Acute hypoxic respiratory failure, status post intubation. S/P Trach on 03/17 Trach cultures positive for Rock albicans and now acinebacter ursungi 4. Diabetes. 5. Diarrhea. 6. Hypertension. 7. Hyperlipidemia. 8. Anemia. 9. BOB on HD 10.UC rock albican, ua neg Plan Plan of Care Cont Meropenem add daptomycin and micafungin Follow-up lab ,cultures, C. diff PCR negative Kern changed per team Wound care per wound treatment Offload Continue supportive care. Awaiting PEG on Tuesday Prognosis guarded. D/W BLANCA CURIEL MD Mar 23, 2021 07:52
--- NOTE | 2021-03-23 08:25 | PDOC ---
[facility] PROGRESS NOTE Date of Service DOS: DATE: 03/23/21 TIME: 08:21 Chief Complaint Chief Complaint CC: Covid-19 DKA Hypotension Nausea Vomiting Combined metabolic and respiratory acidosis Acute electrolyte derangementhyponatremia, hypochloremia due to volume depletion Hyperglycemia BOB Erythrocytosis Candiduria Sacral decubitus ulcer S/P Trach on (03/17/21) Trach cultures positive for [place] albicans and now acinebacter ursungi History of Present Illness History of Present Illness Ms Borges is a 46 year old female who presented with nausea/vomiting since 7 AM 02/06/2021 in the morning. Patient stated that her recently tested po sitive for Covid. She states that he "coughed in my face because he thought it was funny." She reports subjective fevers and chills and nausea/vomiting. Denies sore throat, cough, shortness of breath. No chest pain. Does have some upper abdominal discomfort after vomiting, that she attributes to muscular strain. She was not vaccinated for Covid. 02/08: No acute events overnight. Patient seen and examined bedside and resting comfortably. Continues to complain of nausea not able to tolerate any diet at this time. Saturating 98% on room air. Patient's chart, labs, images were reviewed and discussed with RN 02/09: Afebrile, currently breathing on room air. Still with complaints of nausea and vomiting x3 today. States that she has history of similar symptoms that have been mildly improved with IV Dilaudid. 02/10: Patient febrile today with T-max 102.2 F. She still admits to nausea, denies any further vomiting. We will continue to provide supportive care and monitor for any recurrent fevers overnight. Patient continues to improve may discharge tomorrow to continue self-isolation. 02/11: Febrile overnight, T-max 102.3 F. She did become hypoxic overnight, currently breathing on 4 L nasal cannula. Also admits to associated vomiting or diarrhea overnight. Discussed with RN, will initiate remdesivir and closely monitor LFTs. IV Decadron, and prophylactic antibiotics. 02/12: Low-grade fever overnight, T-max 99.7. Currently breathing on room air. Will discontinue remdesivir, steroids, and antibiotics; will observe overnight. Still with complaints of vomiting x1 and diarrhea. We will continue to provide supportive care and hope to discharge in the next day or so. 02/13: Afebrile. Still complains of intermittent diarrhea. At the time of my evaluation she was breathing on 6 L nasal cannula; this is somewhat misleading as patient states that she did not feel short of breath but was placed on 6 L by nursing staff overnight. 02/14: Afebrile, currently breathing on 8 L nasal cannula. There has been some misleading documentation, chart oxygen this patient is requiring. Discussed with RN, will resume remdesivir to complete total of 5 days. Continue to monitor LFTs. Will add steroids, Rocephin, and azithromycin. 02/15: Afebrile. Became much more hypoxic overnight, requiring BiPAP. At the time of my evaluation she is still breathing on BiPAP. Consultation was placed to pulmonology. Had discussion with Dr. Myrick about initiating Tocilizumab 02/16: No acute events overnight. Patient becoming more hypoxic saturating 94% and requiring BiPAP. Patient will be transferred to the ICU at this time. For worsening clinical status. Discussed with pulmonary. Patient's chart, labs, images were reviewed and discussed with RN 02/17: Transferred to ICU yesterday afternoon. Seen and examined at bedside she remains on 100% FiO2 on BiPAP. Respirations do appear somewhat labored. Suspect intubation may be impending. We will closely monitor. Increase lisinopril to 20 today. 02/18: Patient required intubation yesterday afternoon. Saw and examined this morning. She is intubated and sedated. Increase insulin today. Covid protocol ordered. Wean as tolerated. Plan of care discussed with bedside nurse. 02/19: Bedside. She remains intubated and sedated. Continue Covid protocol. Wean oxygen sedation as tolerated. Pulmonary following. Plan of care discussed with bedside RN. 02/20: Patient seen and examined at bedside. She remains intubated and sedated. No major clinical changes. Continue current treatment. Pulmonary following. Plan of care discussed with bedside RN. 02/21: Patient seen and examined at bedside. Remains intubated and sedated date and admission clinical changes. Increase free water flushes today due to hypernatremia. Plan of care discussed with bedside nurse. 02/22: Patient seen and examined at bedside. O2 requirement actually improving, although remains intubated. Possible SBT in the coming days. Hypernatremia improving. Plan of care discussed bedside RN. 02/23: Patient remains in ICU on ventilator with FiO2 100%, PEEP 7. Repeat chest x-ray yesterday showed diffuse bilateral pulmonary opacities with no interval improvement. Will discontinue Rocephin and initiate Zosyn. We will continue IV steroids for a full 10-day course 02/24: Afebrile. On vent with FiO2 40%, PEEP 6. Her Coreg has been held due to persistent bradycardia. No documented history of systolic heart failure or previous echocardiogram. Will need to obtain echocardiogram prior to discharge. Continue IV steroids and antibiotics. 02/25: Afebrile. Remains ventilated with FiO2 45%, PEEP 6. Chest x-ray today showed slight improvement of the pulmonary infiltrates, no pneumothorax. Completed 10-day course of IV Decadron. Will initiate slow Solu-Medrol taper. Continue IV Zosyn. Continue supportive care. 02/26: Afebrile. On vent with FiO2 45%, PEEP 6. Completed 10 days of IV Decadron. Will continue IV Zosyn. Continue supportive care. Critical care time 30 minutes spent reviewing charts, reviewing imaging, reviewing labs, discussion with RN. 02/27: Afebrile. On vent with FiO2 45%, PEEP 6. Completed 10 days of steroids and completed remdesivir. Continue with IV Zosyn. CPAP trial yesterday. Continue NG tube and supportive care. 02/28:. Patient remains on vent with FiO2 40%, PEEP 5. Afebrile. Completed steroids and remdesivir. Some noted hypoglycemia overnight, will de-escalate basal insulin. Continue IV Zosyn. Ventilator management per pulmonology. Continue NG tube and supportive care. 03/01: On vent with FiO2 40%, PEEP 5. Afebrile. Completed steroids and remde sivir. Blood glucose well controlled. Continue empiric antibiotics with Zosyn. Ventilator management per pulmonology. Continue NG tube and supportive care. 03/02: No acute events overnight. Patient hypotensive the morning due to oversedation. Will wean off sedation and keep antihypertensive medications on board. Currently saturating 100% on vent settings of 18/450/40/5. Will attempt spontaneous breathing trial today to see how patient does. 03/03: No acute events overnight. Patient saturating 98% on vent settings of 18/450/40/5. Will defer spontaneous breathing trials to pulmonary at this time. Patient's chart, labs, images were reviewed and discussed with RN 8: No acute events overnight. Patient saturating 9 9% on vent settings of 18/450/30/5. Patient currently is unable to tolerate weaning. Per pulmonary. Patient's chart, labs, images were reviewed and discussed with RN 03/05: No acute events overnight. Patient is saturating 97% on vent settings of 18/450/55/5. Her FiO2 needs to be increased due to abnormal ABG with 7.3 //24. Patient's chart, labs, images were reviewed and discussed with RN 03/06: No acute events overnight. Patient saturating 94% on vent settings of 18/450/55/5. Chest x-ray showing increase in pulmonary infiltrates. Wound care is consulted for decubitus ulcer patient's chart, labs, images were reviewed and discussed with RN 03/07: No acute events overnight. Patient saturating 94% on vent settings of 20/450/70/8. Patient now heading into renal failure with her creatinine bumped up from 1.5-4.2. Decreased urine output. Plan for hemodialysis today and temporary catheter placement and nephrology is consulted. 03/08: No acute events overnight. Patient did have a nausea vomiting episode and tube feeds were held. KUB repeat shows NG tube still in the stomach. Will resume tube feeds at trickle and advance to goal today. Will start hemodialysis soon. 03/09: Seen on vent 20/450/60%/8. ABG 7.2 WBC 11.4, Hb 7.4, platelets 188, NA 131, K4.9, BUN 48, CR 51, glucose 199, phosphorus 7.9, mag 2.2, AST 265 ALT 219, albumin 1.1. Chest radiograph appears unchanged from prior. Dialysis x1 today 03/10: Afebrile. Seen on vent, 20/450/60/7 with ABG 7.3 . Tolerated dialysis well on 03/09. LFTs similar. 03/11: Afebrile. Seen on vent, sedated. Still requiring Levophed for BP support. WBC 16.7, Hb 8.1, NA 130, ABG 7.3 on 55% FiO2 PEEP 6. On Zosyn and Zyvox Diflucan. Dialysis today 03/12: Afebrile. Still requiring Levophed for BP support sedated with Versed febrile Precedex. WBC 16.1, Hb 8.5, platelets 185, NA 133. Trach plan tentatively 03/17. O2 saturations 93% on 50% FiO2 PEEP 6. ABG 7.38/35/79 On Zosyn and Zyvox Diflucan. 03/13: Afebrile. Still on Levophed for BP support lightly sedated. 7.31/37/61 on 45% FiO2. Plan for dialysis today. On Zosyn and Zyvox Diflucan. More swollen today. 03/14: Afebrile. Weaning down off Levophed. WBC 14.9 NA 132. O2 saturations 92% on 45% FiO2 PEEP 5. Afebrile. O2 saturations 91% on FiO2 45% PEEP 6. Continued on Zosyn and Zyvox Diflucan. Tentative trach planned 03/17/2021 CC time 31 minutes 03/16/21: Patient seen and examined in ICU. Periorbital as well as upper and lower extremity edema noted. OG feed running at 30cc/hr. Still on vent on pressure control with a rate of 24 with 45% FiO2. Patient has rectal bag. Currently she has 98% O2 sat. Currently sedated with Dexmedetomidine, Propofol, Versed, and Fentanyl. Discussed with RN. Chart reviewed. 03/17/21: Patient was seen and examined in the ICU today. Periorbital edema as wel l as abdominal and mons pubis edema was noted. Patient still on vent on pressure control with Fi02 of 45% plus 6 PEEP. Patient had rectal bag. Currently sedated on Dexmedetomidine, Propofol, Versed, and Fentanyl. Discussed with RN. Chart reviewed. 03/18/21: Patient seen and examined in ICU. On vent via trach that was placed yesterday. Vent settings are Pressure Control of 40 with FiO2 of 45% and 6 PEEP. Trach clean and dry. Orbital swelling still present. Pupils are sluggish. Patient on TPN running at 30cc/hr. Kren to bedside and rectal bag in place. Current O2 sat at 94%. Sedated on Dexmedetomidine, Propofol, Versed, and Fentanyl. Discussed with RN. Chart reviewed. 03/19/21: Patient was seen and examined in the ICU today. Currently on vent via trach on pressure control of 42, rate of 24, FiO2 of 45%, and 6 PEEP. O2 sat is at 97% while patient is being examined. Trach is clean and dry. PICC line is in place on right arm. Periorbital swelling has decreased slightly since examined yesterday. Patient is sedated on Dexmedetomidine, Propofol, Versed, and Fentanyl. Discussed with RN. Chart reviewed. 03/20/21: Patient seen and examined in the ICU. Periorbital edema is slightly decreased since yesterday. O2 sat while being examined was 93%. NG tube in place and running at 30cc/hr. Patient on vent via trach on pressure control of 40 with FiO2 of 45 and rate of 24. Sedated on Dexmedetomidine, Propofol, Versed, and Fentanyl. PICC line in place. Kern to bedside. Rectal bag present. Discussed with RN. Chart reviewed. 03/21/21: Patient was seen and examined in the ICU today. She was semi-sedated.. She was on Dexmedetomidine and Fentanyl. We are holding the Propofol. Her eyes were periodically open but she was not making meaningful eye contact or tracking. On vent via trach with pressure control of 40 and FiO2 at 45. Rate was 24. PEEP was 5. Trach was clean and dry. While being examined, her O2 sat was 94%. Rectal bag and Kern to bedside in place. NG tube in place and feeding at 30cc/hr. IV fluids still running. Levophed has been stopped. Discussed with RN. Chart reviewed. 03/22/21: Patient was seen and examined in the ICU. She was semi-sedated on Propofol and Dexmedetomidine. Her eyes were open but she did not make meaningful eye contact. Her blood pressure was elevated (198/102) while being examined and she had just been given hydralazine to lower it. There are plans to place a PEG tube tomorrow. Currently on vent via trach on pressure control of 40 with FiO2 of 45%, 5 PEEP, and a rate of 24. Current O2 sat is 98%. She is feeding through an NG tube at 30cc/hr. Rectal bag and Kern to bedside present. SCDs on patient for DVT prophylaxis. She did not do her daily dialysis today but the plan is to start back on that tomorrow. Discussed with RN. Chart reviewed. 03/23/2021: Patient remains in ICU on ventilator. FiO2 40%, PEEP 5. Trach cultures positive for [place] albicans and acinebacter ursungi. We will continue treatment with IV antibiotics and micafungin, per ID. HD per nephrology. Plans for PEG tube placement today. 30 minutes critical care time was spent reviewing charts, reviewing labs, reviewing imaging, discussion with RN. Vitals/I&O Vitals/I&O: Vital Signs Date Time Temp Pulse Resp B/P (MAP) Pulse Ox O2 Delivery O2 Flow Rate FiO2 03/23/21 07:34 97 Ventilator 03/23/21 06:00 76 24 175/65 (101) 03/23/21 04:00 98.2 98.2 03/22/21 18:54 90.0 I & O 03/22/21 03/22/21 03/23/21 15:00 23:00 07:00 Intake Total 200 ml 1390 ml 1049 ml Output Total 0 ml 45 ml 30 ml Balance 200 ml 1345 ml 1019 ml Physical Exam Physical Exam: GENERAL: Intubated and sedated. Trach HEENT: Normocephalic, atraumatic. Anicteric. Slight bilateral periorbital edema. Neck right IJ HDC clean LUNGS: Rhonchi. HEART: S1, S2. No murmurs. ABDOMEN: Obese, soft. Bowel sounds present. Nontender, nondistended. Abdominal and mons pubis edema noted. GENITOURINARY: Kern and fecal tube in place. EXTREMITIES: Edema present no cyanosis. CENTRAL NERVOUS SYSTEM: Intubated. PSYCHIATRIC: Unable to assess. Derm has pressure wounds wound pictures noted in chart. Generalized rash, PICC line , right IJ HDC clean General: Other (SEDATED) Heart: Regular rate, Normal S1, Normal S2, No murmurs, Gallops Lungs: Clear Abdomen: Normal bowel sounds, Soft, No tenderness, No hepatosplenomegaly, No masses Extremities: Other (ANASARCA) Skin: No rashes, No significant lesion Labs Labs: Laboratory Tests Test 03/22/21 08:25 03/22/21 11:53 03/22/21 17:53 03/22/21 23:48 O2 Saturation 95 % (92-99) Arterial Blood pH 7.47 (7.35-7.45) Arterial Blood pH (Temp corrected) 7.45 Arterial Blood pCO2 at Patient Temp 37 mmHg (35-46) Arterial Blood pCO2 (Temp correct) 39 mmHg Arterial Blood pO2 at Patient Temp 74 mmHg (75-108) Arterial Blood pO2 (Temp corrected) 81 mmHg Arterial Blood HCO3 26 mmol/L (21-28) Arterial Blood Base Excess 2 mmol/L (-3-3) FiO2 45 Glucose (Fingerstick) 174 mg/dL (70-99) 185 mg/dL (70-99) 174 mg/dL (70-99) Test 03/23/21 04:50 White Blood Count 13.2 x10^3/uL (4.0-11.0) Red Blood Count 3.11 x10^6/uL (3.50-5.40) Hemoglobin 9.1 g/dL (12.0-15.5) Hematocrit 27.8 % (36.0-47.0) Mean Corpuscular Volume 90 fL (79-100) Mean Corpuscular Hemoglobin 29 pg (25-35) Mean Corpuscular Hemoglobin Concent 33 g/dL (31-37) Red Cell Distribution Width 15.4 % (11.5-14.5) Platelet Count 247 x10^3/uL (140-400) Neutrophils (%) (Auto) 67 % (31-73) Lymphocytes (%) (Auto) 11 % (24-48) Monocytes (%) (Auto) 8 % (0-9) Eosinophils (%) (Auto) 12 % (0-3) Basophils (%) (Auto) 2 % (0-3) Neutrophils # (Auto) 8.8 x10^3/uL (1.8-7.7) Lymphocytes # (Auto) 1.4 x10^3/uL (1.0-4.8) Monocytes # (Auto) 1.1 x10^3/uL (0.0-1.1) Eosinophils # (Auto) 1.6 x10^3/uL (0.0-0.7) Basophils # (Auto) 0.3 x10^3/uL (0.0-0.2) Sodium Level 135 mmol/L (136-145) Potassium Level 3.7 mmol/L (3.5-5.1) Chloride Level 99 mmol/L (98-107) Carbon Dioxide Level 26 mmol/L (21-32) Anion Gap 10 (6-14) Blood Urea Nitrogen 34 mg/dL (7-20) Creatinine 3.6 mg/dL (0.6-1.0) Estimated GFR (Cockcroft-Gault) 13.7 Glucose Level 190 mg/dL (70-99) Calcium Level 9.0 mg/dL (8.5-10.1) Assessment and Plan Assessmemt and Plan Problems Medical Problems: (1) Ketoacidosis Status: Acute Comment Review of Relevant I have reviewed the following items mazin (where applicable) has been applied. Justifications for Admission Other Justification SANDI ALCARAZ MD Mar 23, 2021 08:25
--- NOTE | 2021-03-23 09:29 | PDOC ---
DATE OF SERVICE DATE: 03/23/21 TIME: 09:23 SUBJECTIVE ROS Pt intubated,sedated,Status post tracheostomy Continues to have fever OBJECTIVE Vital Signs Vital Signs Date Time Temp Pulse Resp B/P (MAP) Pulse Ox O2 Delivery O2 Flow Rate FiO2 03/23/21 07:34 97 Ventilator 03/23/21 06:00 76 24 175/65 (101) 03/23/21 04:00 98.2 98.2 03/22/21 18:54 90.0 I & 0 Intake and Output 03/23/21 07:00 Intake Total 2639 ml Output Total 75 ml Balance 2564 ml IV Total 931 ml Tube Feeding 1298 ml Other 410 ml Output Urine Total 75 ml Gastric Drainage Total 0 ml PHYSICAL EXAM Physical Exam GENERAL: Intubated and sedated. HEENT: Anicteric. . Neck Trach+ LUNGS: decreased at bases HEART: S1, S2. No murmurs. ABDOMEN: Obese, soft. Bowel sounds present. GENITOURINARY: Kern and rectal tube in place. EXTREMITIES: Edema present no cyanosis. CENTRAL NERVOUS SYSTEM: Intubated. PSYCHIATRIC: Unable to assess. DERM has pressure wounds DIAGNOSIS/ASSESSMENT Assessment & Plan BOB-ATN- anuric , requiring dialysis., currently on MWF schedule, dialysis today, discussed treatment plan with Rene Supportive care, I/O avoid nephrotoxins, Monitor for recovery HypoNatremia - mild , stable DM 2 - Glucosuria + POA COVID 19 Pneumonia - Unvaccinated Acute Resp Failure- Intubated , CxR 03/20- Continued presence of diffuse pulmonary opacities bilaterally without interval improvement. HTN Anemia -avoid DOYLE 2/2 to Thrombogenic state COMMENT/RELEVANT DATA Meds Current Medications Medications (Trade) Dose Ordered Sig/Pepe Start Time Stop Time Status Last Admin Dose Admin Acetaminophen (Tylenol Supp) 650 mg PRN Q6HRS PRN 02/08/21 01:45 02/17/21 10:45 DC Acetaminophen (Tylenol) 500 mg 1X PRN PRN 03/17/21 13:30 03/18/21 13:29 DC Albumin Human 200 ml @ 200 mls/hr 1X PRN PRN 03/21/21 14:45 03/21/21 20:44 DC 03/21/21 15:36 200 MLS/HR Albuterol Sulfate (Ventolin Hfa) 60 puff STK-MED ONCE 03/17/21 11:29 03/17/21 11:29 DC Alteplase, Recombinant (Cathflo For Central Catheter Clearance) 1 mg 1X ONCE 02/27/21 14:30 02/27/21 14:36 DC 02/27/21 15:19 1 MG Alteplase, Recombinant (Cathflo) 2 mg 1X ONCE 02/27/21 11:00 02/27/21 11:01 DC 02/27/21 11:20 2 MG Amlodipine Besylate (Norvasc) 5 mg DAILY 02/24/21 09:00 03/09/21 10:43 DC 02/27/21 09:10 5 MG Atorvastatin Calcium (Lipitor) 40 mg HS 02/08/21 21:00 03/22/21 21:08 40 MG Atropine Sulfate (ATROPINE 0.5mg SYRINGE) 0.5 mg PRN Q5MIN PRN 02/16/21 12:00 Azithromycin 250 mg/Sodium Chloride 250 ml @ 250 mls/hr Q24H 02/14/21 13:30 02/18/21 14:29 DC 02/18/21 11:51 250 MLS/HR Benzonatate (Tessalon Perle) 100 mg [id number] 02/10/21 23:30 02/17/21 10:45 DC 02/16/21 22:07 100 MG Bupivacaine HCl/ Epinephrine Bitart (Sensorcain-Epi 0.5%-1:[id number] Mpf) 30 ml STK-MED ONCE 03/17/21 10:47 03/17/21 10:47 DC Carvedilol (Coreg) 6.25 mg BIDWMEALS 02/08/21 20:30 02/23/21 15:50 DC 02/23/21 08:06 6.25 MG Cefazolin Sodium/ Dextrose 50 ml @ 100 mls/hr 1X PREOP ONCE 03/23/21 13:00 03/22/21 06:30 DC Ceftriaxone Sodium (Rocephin) 1 gm Q24H 02/14/21 13:00 02/23/21 07:34 DC 02/22/21 12:42 1 GM Cellulose (Surgicel Fibrillar 1x2) 1 each STK-MED ONCE 03/17/21 10:47 03/17/21 10:47 DC 03/17/21 11:56 1 EACH Daptomycin 480 mg/ Sodium Chloride 50 ml @ 100 mls/hr QMWF 03/23/21 16:00 Dexamethasone Sodium Phosphate (Decadron) 2 mg 1X ONCE 02/27/21 09:00 02/26/21 07:15 DC Dexmedetomidine HCl 400 mcg/ Sodium Chloride 100 ml @ 0 mls/hr CONT PRN 02/27/21 09:45 03/23/21 05:50 23.8 MLS/HR Dextrose (Dextrose 50%-Water Syringe) 12.5 gm PRN Q15MIN PRN 03/01/21 13:00 03/01/21 12:55 12.5 GM Diphenhydramine HCl (Benadryl) 25 mg 1X PRN PRN 03/17/21 13:30 03/18/21 13:29 DC Docusate Sodium (Colace Solution) 100 mg BID 02/23/21 12:00 03/22/21 21:05 100 MG Docusate Sodium (Colace) 100 mg PRN DAILY PRN 02/07/21 08:45 02/23/21 10:47 DC Enalaprilat (Vasotec Inj) 0.625 mg Q6HRS 02/08/21 16:15 02/09/21 16:01 DC 02/09/21 13:42 0.625 MG Enoxaparin Sodium (Lovenox 30mg Syringe) 30 mg Q24H 03/08/21 09:00 03/12/21 15:38 DC 03/12/21 09:04 30 MG Enoxaparin Sodium (Lovenox 40mg Syringe) 40 mg BID 02/09/21 09:00 03/08/21 13:56 DC 03/08/21 08:26 40 MG Enoxaparin Sodium (Lovenox Per Pharmacy Prophylaxis Dosing) 1 each PRN DAILY PRN 02/09/21 06:45 03/12/21 15:38 DC Ephedrine Sulfate (ePHEDrine PF IN SALINE SYRINGE) 50 mg STK-MED ONCE 03/17/21 10:56 03/17/21 10:56 DC Famotidine (Pepcid Vial) 20 mg DAILY 03/10/21 09:00 03/22/21 09:03 20 MG Fentanyl Citrate (Fentanyl 2ml Vial) 50 mcg PRN Q5MIN PRN 03/23/21 06:00 03/24/21 05:59 Fluconazole/ Sodium Chloride 100 ml @ 100 mls/hr Q24H 03/07/21 09:00 03/17/21 08:03 DC 03/16/21 08:29 100 MLS/HR Furosemide (Lasix) 20 mg 1X ONCE 02/16/21 22:15 02/16/21 22:16 DC 02/16/21 22:18 20 MG Glycerin/ Hypromellose/ Polyethylene (Artificial Tears) 1 drop PRN Q1HR PRN 02/17/21 10:00 Guaifenesin (Robitussin Dm) 10 ml PRN Q6HRS PRN 02/10/21 23:30 02/16/21 09:06 10 ML Haloperidol Lactate (Haldol Inj) 2.5 mg 1X ONCE 02/07/21 02:30 02/07/21 03:56 DC Heparin Sodium (Porcine) (Heparin Sodium) 5,000 unit Q8HRS 03/13/21 06:00 03/22/21 21:08 5,000 UNIT Hydralazine HCl (Apresoline Inj) 10 mg PRN Q4HRS PRN 02/11/21 12:15 03/23/21 04:05 10 MG Hydromorphone HCl (Dilaudid) 0.5 mg PRN Q10MIN PRN 03/17/21 06:00 03/17/21 19:00 DC Info (PHARMACY MONITORING -- do not chart) 1 each PRN DAILY PRN 03/21/21 15:30 Insulin Glargine (Lantus Syringe) 5 unit BID 03/06/21 09:00 03/22/21 21:08 5 UNIT Insulin Human Lispro (HumaLOG) 12 units Q6HRS 02/20/21 12:00 02/28/21 15:38 DC 02/27/21 05:41 12 UNITS Insulin Human Regular 100 ml @ 10 mls/hr 1X ONCE 02/07/21 06:30 02/07/21 16:54 DC 02/07/21 09:31 6.5 MLS/HR Insulin Human Regular 100 unit/ Sodium Chloride 101 ml @ 0 mls/hr CONT PRN PRN 02/07/21 06:00 02/07/21 16:54 DC Labetalol HCl (Normodyne Iv Push) 10 mg PRN Q2HR PRN 02/08/21 00:45 03/23/21 02:28 10 MG Lactobacillus Rhamnosus (Culturelle) 1 cap BID 02/16/21 21:00 02/17/21 10:45 DC 02/16/21 22:02 1 CAP Lidocaine HCl (Buffered Lidocaine 1%) 3 ml STK-MED ONCE 03/07/21 13:25 03/07/21 13:25 DC Linezolid (Zyvox) 600 mg BID 03/05/21 09:00 03/12/21 07:00 DC 03/11/21 20:33 600 MG Linezolid/Dextrose 300 ml @ 300 mls/hr Q12HR 03/16/21 10:00 03/18/21 07:37 DC 03/17/21 21:44 300 MLS/HR Lisinopril (Prinivil) 20 mg DAILY 02/17/21 09:00 03/09/21 10:43 DC 02/27/21 09:10 20 MG Lorazepam (Ativan Inj) 0.5 mg PRN Q6HRS PRN 02/08/21 10:00 02/16/21 22:07 0.5 MG Meropenem 1 gm/ Sodium Chloride 100 ml @ 200 mls/hr Q24H 03/18/21 17:00 03/22/21 16:15 200 MLS/HR Methylprednisolone Sodium Succinate (SOLU-Medrol 125MG VIAL) 80 mg Q8HRS 02/25/21 09:00 02/26/21 07:09 DC 02/26/21 05:52 80 MG Metoclopramide HCl (Reglan Vial) 10 mg PRN Q6HRS PRN 02/08/21 00:45 02/12/21 15:51 10 MG Micafungin Sodium 100 mg/Dextrose 100 ml @ 100 mls/hr Q24H 03/21/21 18:00 03/22/21 17:54 100 MLS/HR Midazolam HCl 100 ml @ 0 mls/hr CONT PRN 02/17/21 10:00 03/20/21 17:18 5 MLS/HR Morphine Sulfate (Morphine Sulfate) 1 mg PRN Q10MIN PRN 03/17/21 06:00 03/17/21 19:00 DC Multi-Ingred Cream/Lotion/Oil/ Oint (Artificial Tears Eye Ointment) 1 reji PRN Q1HR PRN 03/17/21 17:30 03/20/21 15:55 1 REJI Multivitamins/ Minerals Therapeutic (Centrum Multivit-Mineral Liq) 5 ml DAILY 03/14/21 09:00 03/22/21 09:03 5 ML Norepinephrine Bitartrate 8 mg/ Dextrose 258 ml @ 21.711 mls/ hr CONT PRN 03/06/21 13:45 03/19/21 18:45 23.3 MLS/HR Nystatin (Nystop) 1 reji BID 03/02/21 21:00 03/22/21 21:08 1 REJI Ondansetron HCl (Zofran Odt) 4 mg 1X ONCE 02/06/21 23:30 02/06/21 23:31 DC 02/06/21 23:57 4 MG Ondansetron HCl (Zofran) 4 mg 1X ONCE 02/07/21 20:00 02/07/21 20:07 DC 02/07/21 20:06 4 MG Phenylephrine HCl (PHENYLEPHRINE in 0.9% NACL PF) 1 mg STK-MED ONCE 03/17/21 10:56 03/17/21 10:56 DC Piperacillin Sod/ Tazobactam Sod (Zosyn Per Pharmacy) 1 each PRN DAILY PRN 02/23/21 07:45 03/17/21 10:04 DC Piperacillin Sod/ Tazobactam Sod 2.25 gm/Sodium Chloride 50 ml @ 100 mls/hr Q8HRS 03/07/21 14:00 03/17/21 08:03 DC 03/17/21 05:58 100 MLS/HR Piperacillin Sod/ Tazobactam Sod 3.375 gm/Sodium Chloride 50 ml @ 100 mls/hr Q6HRS 03/14/21 18:00 Cancel Piperacillin Sod/ Tazobactam Sod 4.5 gm/Sodium Chloride 100 ml @ 200 mls/hr Q6HRS 02/23/21 08:00 03/07/21 08:18 DC 03/07/21 06:12 200 MLS/HR Potassium Chloride/Water 100 ml @ 100 mls/hr PRN Q1HR PRN 02/07/21 06:00 02/07/21 16:54 DC Potassium Chloride (Klor-Con) 40 meq 1X ONCE 02/13/21 12:00 02/13/21 12:01 DC 02/13/21 13:21 40 MEQ Prochlorperazine Edisylate (Compazine) 10 mg PRN Q6HRS PRN 02/07/21 08:45 02/12/21 10:35 10 MG Propofol 100 ml @ 0 mls/hr CONT PRN 02/17/21 10:00 03/21/21 08:54 10 MLS/HR Remdesivir 100 mg/ Sodium Chloride 230 ml @ 460 mls/hr Q24H 02/15/21 12:00 02/18/21 12:29 DC 02/18/21 11:52 460 MLS/HR Remdesivir 200 mg/ Sodium Chloride 210 ml @ 210 mls/hr 1X ONCE 02/11/21 13:00 02/12/21 11:55 DC 02/11/21 14:33 210 MLS/HR Ringer's Solution 1,000 ml @ 30 mls/hr Q24H 03/23/21 06:00 03/23/21 17:59 Cancel Rocuronium Moran (Zemuron) 50 mg STK-MED ONCE 03/17/21 11:39 03/17/21 11:39 DC Sennosides (Senna) 17.2 mg PRN BID PRN 02/07/21 08:45 02/22/21 08:29 17.2 MG Sevoflurane (Ultane) 30 ml STK-MED ONCE 03/17/21 12:20 03/17/21 12:20 DC Sodium Chloride 1,000 ml @ 400 mls/hr Q2H30M PRN 03/21/21 14:45 03/22/21 02:44 DC Sodium Chloride (Normal Saline Flush) 10 ml 1X PRN PRN 03/20/21 12:30 03/21/21 12:29 DC Succinylcholine Chloride (Anectine) 200 mg STK-MED ONCE 02/17/21 10:00 02/25/21 08:40 DC Vancomycin HCl (Vanco Per Pharmacy) 1 each PRN DAILY PRN 03/04/21 18:30 03/05/21 08:59 DC 03/04/21 19:47 1 EACH Vancomycin HCl (Vancomycin Trough Level) 1 each 1X ONCE 03/06/21 07:00 03/06/21 07:01 Cancel Vancomycin HCl 1.5 gm/Sodium Chloride 500 ml @ 250 mls/hr Q12H 03/05/21 07:30 03/05/21 08:58 DC Vancomycin HCl 1 gm/Sodium Chloride 250 ml @ 250 mls/hr Q12H 03/04/21 20:00 UNV Vancomycin HCl 2 gm/Sodium Chloride 500 ml @ 250 mls/hr 1X ONCE 03/04/21 19:00 03/04/21 20:59 DC 03/04/21 19:26 250 MLS/HR Vecuronium Moran (Norcuron Bolus) 6 mg PRN Q2HRS PRN 03/06/21 14:30 03/16/21 10:16 5 MG Vitamin A/Vitamin D (Vitamin A & D Ointment) 1 reji PRN Q1HR PRN 03/10/21 01:45 03/20/21 09:34 1 REJI Lab Laboratory Tests Test 03/22/21 11:53 03/22/21 17:53 03/22/21 23:48 03/23/21 04:50 Glucose (Fingerstick) 174 mg/dL (70-99) 185 mg/dL (70-99) 174 mg/dL (70-99) White Blood Count 13.2 x10^3/uL (4.0-11.0) Red Blood Count 3.11 x10^6/uL (3.50-5.40) Hemoglobin 9.1 g/dL (12.0-15.5) Hematocrit 27.8 % (36.0-47.0) Mean Corpuscular Volume 90 fL (79-100) Mean Corpuscular Hemoglobin 29 pg (25-35) Mean Corpuscular Hemoglobin Concent 33 g/dL (31-37) Red Cell Distribution Width 15.4 % (11.5-14.5) Platelet Count 247 x10^3/uL (140-400) Neutrophils (%) (Auto) 67 % (31-73) Lymphocytes (%) (Auto) 11 % (24-48) Monocytes (%) (Auto) 8 % (0-9) Eosinophils (%) (Auto) 12 % (0-3) Basophils (%) (Auto) 2 % (0-3) Neutrophils # (Auto) 8.8 x10^3/uL (1.8-7.7) Lymphocytes # (Auto) 1.4 x10^3/uL (1.0-4.8) Monocytes # (Auto) 1.1 x10^3/uL (0.0-1.1) Eosinophils # (Auto) 1.6 x10^3/uL (0.0-0.7) Basophils # (Auto) 0.3 x10^3/uL (0.0-0.2) Sodium Level 135 mmol/L (136-145) Potassium Level 3.7 mmol/L (3.5-5.1) Chloride Level 99 mmol/L (98-107) Carbon Dioxide Level 26 mmol/L (21-32) Anion Gap 10 (6-14) Blood Urea Nitrogen 34 mg/dL (7-20) Creatinine 3.6 mg/dL (0.6-1.0) Estimated GFR (Cockcroft-Gault) 13.7 Glucose Level 190 mg/dL (70-99) Calcium Level 9.0 mg/dL (8.5-10.1) Results All relevant outside records, renal labs, imaging studies, telemetry/EKG's were reviewed. Justicifation of Admission Dx: Justifications for Admission: Justification of Admission Dx: N/A GIGI CARMEN MD Mar 23, 2021 09:29
[2021-03-23 10:12] LABS: FIO2 ABG 45% VENT
[2021-03-23] MEDS: INSULIN GLARGINE SYRINGE. SQ SCH ×2 (10:18→21:53)
[2021-03-23] MEDS: NYSTATIN TOPICAL POWDER 15GM BOTTLE. TP SCH ×2 (10:18→21:47)
--- NOTE | 2021-03-23 10:18 | PDOC ---
PULMONARY PROGRESS NOTES DATE: 03/23/21 TIME: 10:16 Subjective pt. remain on vent support. afebrile no overnight concerns On Precedex. Off sedation Vitals Vital Signs Date Time Temp Pulse Resp B/P (MAP) Pulse Ox O2 Delivery O2 Flow Rate FiO2 03/23/21 07:34 97 Ventilator 03/23/21 06:00 76 24 175/65 (101) 03/23/21 04:00 98.2 98.2 03/22/21 18:54 90.0 Lungs: Clear Cardiovascular: S1 Abdomen: Soft Skin: Warm Labs Laboratory Tests Test 03/21/21 12:38 03/21/21 17:52 03/21/21 23:34 03/22/21 05:30 Glucose (Fingerstick) 178 mg/dL (70-99) 123 mg/dL (70-99) 186 mg/dL (70-99) 178 mg/dL (70-99) White Blood Count 14.4 x10^3/uL (4.0-11.0) Red Blood Count 2.86 x10^6/uL (3.50-5.40) Hemoglobin 8.5 g/dL (12.0-15.5) Hematocrit 25.5 % (36.0-47.0) Mean Corpuscular Volume 89 fL (79-100) Mean Corpuscular Hemoglobin 30 pg (25-35) Mean Corpuscular Hemoglobin Concent 34 g/dL (31-37) Red Cell Distribution Width 15.2 % (11.5-14.5) Platelet Count 205 x10^3/uL (140-400) Neutrophils (%) (Auto) 73 % (31-73) Lymphocytes (%) (Auto) 11 % (24-48) Monocytes (%) (Auto) 7 % (0-9) Eosinophils (%) (Auto) 8 % (0-3) Basophils (%) (Auto) 1 % (0-3) Neutrophils # (Auto) 10.5 x10^3/uL (1.8-7.7) Lymphocytes # (Auto) 1.6 x10^3/uL (1.0-4.8) Monocytes # (Auto) 1.1 x10^3/uL (0.0-1.1) Eosinophils # (Auto) 1.1 x10^3/uL (0.0-0.7) Basophils # (Auto) 0.2 x10^3/uL (0.0-0.2) Sodium Level 136 mmol/L (136-145) Potassium Level 3.4 mmol/L (3.5-5.1) Chloride Level 98 mmol/L (98-107) Carbon Dioxide Level 28 mmol/L (21-32) Anion Gap 10 (6-14) Blood Urea Nitrogen 19 mg/dL (7-20) Creatinine 2.5 mg/dL (0.6-1.0) Estimated GFR (Cockcroft-Gault) 20.8 Glucose Level 177 mg/dL (70-99) Calcium Level 8.8 mg/dL (8.5-10.1) Test 03/22/21 08:25 03/22/21 11:53 03/22/21 17:53 03/22/21 23:48 O2 Saturation 95 % (92-99) Arterial Blood pH 7.47 (7.35-7.45) Arterial Blood pH (Temp corrected) 7.45 Arterial Blood pCO2 at Patient Temp 37 mmHg (35-46) Arterial Blood pCO2 (Temp correct) 39 mmHg Arterial Blood pO2 at Patient Temp 74 mmHg (75-108) Arterial Blood pO2 (Temp corrected) 81 mmHg Arterial Blood HCO3 26 mmol/L (21-28) Arterial Blood Base Excess 2 mmol/L (-3-3) FiO2 45 Glucose (Fingerstick) 174 mg/dL (70-99) 185 mg/dL (70-99) 174 mg/dL (70-99) Test 03/23/21 04:50 03/23/21 08:00 White Blood Count 13.2 x10^3/uL (4.0-11.0) Red Blood Count 3.11 x10^6/uL (3.50-5.40) Hemoglobin 9.1 g/dL (12.0-15.5) Hematocrit 27.8 % (36.0-47.0) Mean Corpuscular Volume 90 fL (79-100) Mean Corpuscular Hemoglobin 29 pg (25-35) Mean Corpuscular Hemoglobin Concent 33 g/dL (31-37) Red Cell Distribution Width 15.4 % (11.5-14.5) Platelet Count 247 x10^3/uL (140-400) Neutrophils (%) (Auto) 67 % (31-73) Lymphocytes (%) (Auto) 11 % (24-48) Monocytes (%) (Auto) 8 % (0-9) Eosinophils (%) (Auto) 12 % (0-3) Basophils (%) (Auto) 2 % (0-3) Neutrophils # (Auto) 8.8 x10^3/uL (1.8-7.7) Lymphocytes # (Auto) 1.4 x10^3/uL (1.0-4.8) Monocytes # (Auto) 1.1 x10^3/uL (0.0-1.1) Eosinophils # (Auto) 1.6 x10^3/uL (0.0-0.7) Basophils # (Auto) 0.3 x10^3/uL (0.0-0.2) Sodium Level 135 mmol/L (136-145) Potassium Level 3.7 mmol/L (3.5-5.1) Chloride Level 99 mmol/L (98-107) Carbon Dioxide Level 26 mmol/L (21-32) Anion Gap 10 (6-14) Blood Urea Nitrogen 34 mg/dL (7-20) Creatinine 3.6 mg/dL (0.6-1.0) Estimated GFR (Cockcroft-Gault) 13.7 Glucose Level 190 mg/dL (70-99) Calcium Level 9.0 mg/dL (8.5-10.1) O2 Saturation 95 % (92-99) Arterial Blood pH 7.42 (7.35-7.45) Arterial Blood pCO2 at Patient Temp 39 mmHg (35-46) Arterial Blood pO2 at Patient Temp 80 mmHg (75-108) Arterial Blood HCO3 25 mmol/L (21-28) Arterial Blood Base Excess 0 mmol/L (-3-3) FiO2 45% vent Laboratory Tests Test 03/22/21 11:53 03/22/21 17:53 03/22/21 23:48 03/23/21 04:50 Glucose (Fingerstick) 174 mg/dL (70-99) 185 mg/dL (70-99) 174 mg/dL (70-99) White Blood Count 13.2 x10^3/uL (4.0-11.0) Red Blood Count 3.11 x10^6/uL (3.50-5.40) Hemoglobin 9.1 g/dL (12.0-15.5) Hematocrit 27.8 % (36.0-47.0) Mean Corpuscular Volume 90 fL (79-100) Mean Corpuscular Hemoglobin 29 pg (25-35) Mean Corpuscular Hemoglobin Concent 33 g/dL (31-37) Red Cell Distribution Width 15.4 % (11.5-14.5) Platelet Count 247 x10^3/uL (140-400) Neutrophils (%) (Auto) 67 % (31-73) Lymphocytes (%) (Auto) 11 % (24-48) Monocytes (%) (Auto) 8 % (0-9) Eosinophils (%) (Auto) 12 % (0-3) Basophils (%) (Auto) 2 % (0-3) Neutrophils # (Auto) 8.8 x10^3/uL (1.8-7.7) Lymphocytes # (Auto) 1.4 x10^3/uL (1.0-4.8) Monocytes # (Auto) 1.1 x10^3/uL (0.0-1.1) Eosinophils # (Auto) 1.6 x10^3/uL (0.0-0.7) Basophils # (Auto) 0.3 x10^3/uL (0.0-0.2) Sodium Level 135 mmol/L (136-145) Potassium Level 3.7 mmol/L (3.5-5.1) Chloride Level 99 mmol/L (98-107) Carbon Dioxide Level 26 mmol/L (21-32) Anion Gap 10 (6-14) Blood Urea Nitrogen 34 mg/dL (7-20) Creatinine 3.6 mg/dL (0.6-1.0) Estimated GFR (Cockcroft-Gault) 13.7 Glucose Level 190 mg/dL (70-99) Calcium Level 9.0 mg/dL (8.5-10.1) Test 03/23/21 08:00 O2 Saturation 95 % (92-99) Arterial Blood pH 7.42 (7.35-7.45) Arterial Blood pCO2 at Patient Temp 39 mmHg (35-46) Arterial Blood pO2 at Patient Temp 80 mmHg (75-108) Arterial Blood HCO3 25 mmol/L (21-28) Arterial Blood Base Excess 0 mmol/L (-3-3) FiO2 45% vent Medications Active Scripts Medications Dose Route/Sig Max Daily Dose Days Date Category Novolog Flexpen (Insulin Aspart) 100 Unit/1 Ml Insuln.pen 3-7 SQ TIDACHC 02/07/21 Reported Lisinopril 5 Mg Tablet 1 Tab PO DAILY 02/07/21 Reported Lantus Solostar (Insulin Glargine,Hum.rec.anlog) 100 Unit/1 Ml Insuln.pen 5 Unit SQ QHS 04/09/15 Reported Atorvastatin Calcium 40 Mg Tablet 40 Mg PO HS 04/09/15 Reported Comments 03/20/21 CXR IMPRESSION: Continued presence of diffuse pulmonary opacities bilaterally without interval improvement. Impression . IMPRESSION: 1. Acute hypoxic respiratory failure secondary to COVID-19 viral pneumonia/acute lung injury and early acute respiratory distress syndrome. S/P intubation 02/17/21 2. Nonsmoker. 3. Abnormal chest x-ray consistent with COVID-19 viral pneumonia.--- 4. Diabetic ketoacidosis--resolved 5. Underlying obesity contributing to hypoxia as well. 6. BOB worsening hemodialysis started 03/07 7. Fever, per ID--resolved 8. Abnormal chest x-ray with diffuse interstitial infiltrates compatible with viral pneumonia 9. [place] in the sputum is a contamination 10. Septic shock--resolved Plan . Updated 03/23/21 Continue current vent support, currently on 45% in PC mode. We will ask respiratory to switch her to volume control mode. Will monitor peak airway pressures. Currently on Precedex drip. Follow CXR/ABG Follow nephrology recs Monitor HBG , follow GI recs Follow ID recs for ABX DVT/GI PPX D/W RN and RT PEG tube is a scheduled for today and after that she should be stable for LTAC transfer once accepted Updated 03/22/21 Continue current vent support, currently on 45% in PC mode. We will ask respiratory to switch her to volume control mode in a.m. Did not tolerated coming off sedation well with increasing blood pressure. Currently on low-dose fentanyl and Precedex drip. Follow CXR/ABG Follow nephrology recs Monitor HBG , follow GI recs Follow ID recs for ABX DVT/GI PPX D/W RN and RT PEG tube is a scheduled for tomorrow and after that she should be stable for LTAC transfer Updated 03/21/21 Continue current vent support, currently on 45% in PC mode Discontinue sedation and assess mental status. Once more awake CPAP trial. Follow CXR/ABG Follow nephrology recs Monitor HBG , follow GI recs Follow ID recs for ABX DVT/GI PPX D/W RN and RT Updated 03/20/21 Continue current vent support, currently on 45% in PC mode will reduce to 40% and change to 1:2 IE ratio Reduce sedation and assess mental status Follow CXR/ABG Follow nephrology recs Monitor HBG , follow GI recs Follow ID recs for ABX DVT/GI PPX D/W RN and RT Updated 03/[address] Whitley On exam she appears to be less puffy Finish course of remdesivir and dexamethasone Hemodialysis DVT GI prophylaxis Off pressors Chest x-ray reviewed, no significant change, 03/18 updated 03/18 Continue current mechanical support Hemodialysis per Dr. Sims Nutritional support DVT GI prophylaxis EMILY POSADA MD Mar 23, 2021 10:18
[2021-03-23] MEDS: MULTIVITAMINS,THERAPEUTIC 5 ML ORAL LIQUID. PEG SCH (10:26)
[2021-03-23] MEDS: DOCUSATE 100 MG/10 ML SOLUTION. PO SCH ×2 (10:26→21:47)
[2021-03-23] MEDS: FAMOTIDINE 20 MG/2 ML VIAL IVP SCH (10:27)
[2021-03-23] MEDS ORDERED: IV NORMAL SALINE 1000ML BAG 1,000 ML IV PRN ×2 (10:45)
[2021-03-23] MEDS ORDERED: DIALYSIS PATIENT. MC PRN (10:45)
[2021-03-23] MEDS ORDERED: ceFAZolin 2GM PREMIX 2 GM/50 ML BAG IV ONE (13:00)
--- NOTE | 2021-03-23 15:04 | PDOC4 ---
PROCEDURE Procedure EGD (attempted PEG) Indication: OP dysphagia Meds: ventilator control Findings: E--normal G--normal D--normal bulb. --Unable to locate safe port for PEG placement. Did not attempt. Herman. well. IMP: OP dysphagia; no safe path for PEG placement. REC: continue Dobbhoff feedings. Consider surgical opinion re: gastrostomy. Lashaunry. GERALD WU MD Mar 23, 2021 15:04
[2021-03-23] MEDS: DAPTOmycin (GENERIC) IVPB 480 MG in IV NORMAL SALINE 50ML 50 ML IV SCH (16:00)
--- NOTE | 2021-03-23 16:05 | NUR ---
SS following up with discharge planning. SS reviewed pt chart and discussed with pt RN. Pt is currently on the vent at 45%. Trach in place. Currently has Dobhoff. GI was unable to place PEG. IR consulted. COVID19 recovered. Pt on Fentanyl and Precedex. Pt on IV Meropenem IV Daptomycin, and IV Micafungin. Pt on Sub Q Heparin. Self pay. Med Assist working with spouse to complete paperwork for disability and Medicaid. SS will continue to follow for discharge planning.
[2021-03-23] MEDS: MEROPENEM 1 GM in IV NORMAL SALINE 100ML 100 ML IV SCH (17:00)
[2021-03-23] MEDS: fentaNYL HIGH DOSE PCA 55 ML IV PRN (17:47)
--- NOTE | 2021-03-23 17:51 | NUR ---
Wound Care Attempted to see pt for wound care follow up. Pt is currently getting Dialysis, unable to turn pt to assess buttocks, will f/u tomorrow.
[2021-03-23] MEDS: PROPOFOL 100 ML IV PRN (20:30)
--- NOTE | 2021-03-23 21:38 | RAD ---
AP abdomen x-ray HISTORY: Dobbhoff feeding tube placement. FINDINGS: Tip of the feeding tube projects at the left upper quadrant angled upward at the general ra diographic region of the upper stomach. There is mild gas distention of the large and small bowel loo ps could be due to air swallowing versus mild changes of ileus. Pulmonary infiltrates at the lung bas es. Bones are unremarkable. IMPRESSION: Feeding tube placement as described above. Electronically signed by: Angelito Lim MD (03/23/2021 9:36 PM) [facility]
[2021-03-23] MEDS: ATORVASTATIN CALCIUM 40 MG TABLET. PO SCH (21:47)
[2021-03-23] MEDS: MICAFUNGIN 100 MG in IV DEXTROSE 5% 100ML 100 ML IV SCH (22:20)
[2021-03-24] VITALS (34 sets, daily range): BP systolic 86–198; BP diastolic 51–101
[2021-03-24] MEDS: DEXMEDETOMIDINE 400 MCG in IV NORMAL SALINE 100ML 96 ML IV PRN ×8 (00:57→23:15)
[2021-03-24] MEDS: hydrALAZINE 20 MG/ML VIAL. IVP PRN ×2 (02:21→18:33)
[2021-03-24 05:54] LABS: BASO % 0 % (0-3); EOS # 1.7 x10^3/uL (0.0-0.7); EOS % 14 % (0-3); HEMATOCRIT 29.8 % (36.0-47.0); LYMPH # 1.4 x10^3/uL (1.0-4.8); LYMPH % 12 % (24-48); MEAN CORPUSCULAR HEMOGLOBIN 30 pg (25-35); MEAN CORPUSCULAR HGB CONC 34 g/dL (31-37); MEAN CORPUSCULAR VOLUME 89 fL (79-100); MONO % 8 % (0-9); NEUT % 66 % (31-73); PLATELET COUNT 244 x10^3/uL (140-400); RED BLOOD COUNT 3.35 x10^6/uL (3.50-5.40); RED CELL DISTRIBUTION WIDTH 15.1 % (11.5-14.5); WHITE BLOOD COUNT 12.2 x10^3/uL (4.0-11.0)
[2021-03-24 06:05] LABS: CALCIUM 8.7 mg/dL (8.5-10.1); CREATININE 3.1 mg/dL (0.6-1.0); GFR 16.2; POTASSIUM 3.7 mmol/L (3.5-5.1)
[2021-03-24] MEDS: INSULIN LISPRO 300 UNITS/3 ML VIAL. SQ SCH ×4 (06:30→18:27)
[2021-03-24] MEDS: HEPARIN for SUB-Q USE 5,000 UNIT/ML VIAL. SQ SCH ×3 (06:31→21:50)
--- NOTE | 2021-03-24 07:08 | PDOC ---
[facility] PROGRESS NOTE Date of Service DOS: DATE: 03/24/21 TIME: 07:03 Chief Complaint Chief Complaint CC: Covid-19 DKA Hypotension Nausea Vomiting Combined metabolic and respiratory acidosis Acute electrolyte derangementhyponatremia, hypochloremia due to volume depletion Hyperglycemia BOB Erythrocytosis Candiduria Sacral decubitus ulcer S/P Trach on (03/17/21) Trach cultures positive for [place] albicans and now acinebacter ursungi History of Present Illness History of Present Illness Ms Borges is a 46 year old female who presented with nausea/vomiting since 7 AM 02/06/2021 in the morning. Patient stated that her recently tested po sitive for Covid. She states that he "coughed in my face because he thought it was funny." She reports subjective fevers and chills and nausea/vomiting. Denies sore throat, cough, shortness of breath. No chest pain. Does have some upper abdominal discomfort after vomiting, that she attributes to muscular strain. She was not vaccinated for Covid. 02/08: No acute events overnight. Patient seen and examined bedside and resting comfortably. Continues to complain of nausea not able to tolerate any diet at this time. Saturating 98% on room air. Patient's chart, labs, images were reviewed and discussed with RN 02/09: Afebrile, currently breathing on room air. Still with complaints of nausea and vomiting x3 today. States that she has history of similar symptoms that have been mildly improved with IV Dilaudid. 02/10: Patient febrile today with T-max 102.2 F. She still admits to nausea, denies any further vomiting. We will continue to provide supportive care and monitor for any recurrent fevers overnight. Patient continues to improve may discharge tomorrow to continue self-isolation. 02/11: Febrile overnight, T-max 102.3 F. She did become hypoxic overnight, currently breathing on 4 L nasal cannula. Also admits to associated vomiting or diarrhea overnight. Discussed with RN, will initiate remdesivir and closely monitor LFTs. IV Decadron, and prophylactic antibiotics. 02/12: Low-grade fever overnight, T-max 99.7. Currently breathing on room air. Will discontinue remdesivir, steroids, and antibiotics; will observe overnight. Still with complaints of vomiting x1 and diarrhea. We will continue to provide supportive care and hope to discharge in the next day or so. 02/13: Afebrile. Still complains of intermittent diarrhea. At the time of my evaluation she was breathing on 6 L nasal cannula; this is somewhat misleading as patient states that she did not feel short of breath but was placed on 6 L by nursing staff overnight. 02/14: Afebrile, currently breathing on 8 L nasal cannula. There has been some misleading documentation, chart oxygen this patient is requiring. Discussed with RN, will resume remdesivir to complete total of 5 days. Continue to monitor LFTs. Will add steroids, Rocephin, and azithromycin. 02/15: Afebrile. Became much more hypoxic overnight, requiring BiPAP. At the time of my evaluation she is still breathing on BiPAP. Consultation was placed to pulmonology. Had discussion with Dr. Myrick about initiating Tocilizumab 02/16: No acute events overnight. Patient becoming more hypoxic saturating 94% and requiring BiPAP. Patient will be transferred to the ICU at this time. For worsening clinical status. Discussed with pulmonary. Patient's chart, labs, images were reviewed and discussed with RN 02/17: Transferred to ICU yesterday afternoon. Seen and examined at bedside she remains on 100% FiO2 on BiPAP. Respirations do appear somewhat labored. Suspect intubation may be impending. We will closely monitor. Increase lisinopril to 20 today. 02/18: Patient required intubation yesterday afternoon. Saw and examined this morning. She is intubated and sedated. Increase insulin today. Covid protocol ordered. Wean as tolerated. Plan of care discussed with bedside nurse. 02/19: Bedside. She remains intubated and sedated. Continue Covid protocol. Wean oxygen sedation as tolerated. Pulmonary following. Plan of care discussed with bedside RN. 02/20: Patient seen and examined at bedside. She remains intubated and sedated. No major clinical changes. Continue current treatment. Pulmonary following. Plan of care discussed with bedside RN. 02/21: Patient seen and examined at bedside. Remains intubated and sedated date and admission clinical changes. Increase free water flushes today due to hypernatremia. Plan of care discussed with bedside nurse. 02/22: Patient seen and examined at bedside. O2 requirement actually improving, although remains intubated. Possible SBT in the coming days. Hypernatremia improving. Plan of care discussed bedside RN. 02/23: Patient remains in ICU on ventilator with FiO2 100%, PEEP 7. Repeat chest x-ray yesterday showed diffuse bilateral pulmonary opacities with no interval improvement. Will discontinue Rocephin and initiate Zosyn. We will continue IV steroids for a full 10-day course 02/24: Afebrile. On vent with FiO2 40%, PEEP 6. Her Coreg has been held due to persistent bradycardia. No documented history of systolic heart failure or previous echocardiogram. Will need to obtain echocardiogram prior to discharge. Continue IV steroids and antibiotics. 02/25: Afebrile. Remains ventilated with FiO2 45%, PEEP 6. Chest x-ray today showed slight improvement of the pulmonary infiltrates, no pneumothorax. Completed 10-day course of IV Decadron. Will initiate slow Solu-Medrol taper. Continue IV Zosyn. Continue supportive care. 02/26: Afebrile. On vent with FiO2 45%, PEEP 6. Completed 10 days of IV Decadron. Will continue IV Zosyn. Continue supportive care. Critical care time 30 minutes spent reviewing charts, reviewing imaging, reviewing labs, discussion with RN. 02/27: Afebrile. On vent with FiO2 45%, PEEP 6. Completed 10 days of steroids and completed remdesivir. Continue with IV Zosyn. CPAP trial yesterday. Continue NG tube and supportive care. 02/28:. Patient remains on vent with FiO2 40%, PEEP 5. Afebrile. Completed steroids and remdesivir. Some noted hypoglycemia overnight, will de-escalate basal insulin. Continue IV Zosyn. Ventilator management per pulmonology. Continue NG tube and supportive care. 03/01: On vent with FiO2 40%, PEEP 5. Afebrile. Completed steroids and remde sivir. Blood glucose well controlled. Continue empiric antibiotics with Zosyn. Ventilator management per pulmonology. Continue NG tube and supportive care. 03/02: No acute events overnight. Patient hypotensive the morning due to oversedation. Will wean off sedation and keep antihypertensive medications on board. Currently saturating 100% on vent settings of 18/450/40/5. Will attempt spontaneous breathing trial today to see how patient does. 03/03: No acute events overnight. Patient saturating 98% on vent settings of 18/450/40/5. Will defer spontaneous breathing trials to pulmonary at this time. Patient's chart, labs, images were reviewed and discussed with RN 8: No acute events overnight. Patient saturating 9 9% on vent settings of 18/450/30/5. Patient currently is unable to tolerate weaning. Per pulmonary. Patient's chart, labs, images were reviewed and discussed with RN 03/05: No acute events overnight. Patient is saturating 97% on vent settings of 18/450/55/5. Her FiO2 needs to be increased due to abnormal ABG with 7.3 //24. Patient's chart, labs, images were reviewed and discussed with RN 03/06: No acute events overnight. Patient saturating 94% on vent settings of 18/450/55/5. Chest x-ray showing increase in pulmonary infiltrates. Wound care is consulted for decubitus ulcer patient's chart, labs, images were reviewed and discussed with RN 03/07: No acute events overnight. Patient saturating 94% on vent settings of 20/450/70/8. Patient now heading into renal failure with her creatinine bumped up from 1.5-4.2. Decreased urine output. Plan for hemodialysis today and temporary catheter placement and nephrology is consulted. 03/08: No acute events overnight. Patient did have a nausea vomiting episode and tube feeds were held. KUB repeat shows NG tube still in the stomach. Will resume tube feeds at trickle and advance to goal today. Will start hemodialysis soon. 03/09: Seen on vent 20/450/60%/8. ABG 7.2 WBC 11.4, Hb 7.4, platelets 188, NA 131, K4.9, BUN 48, CR 51, glucose 199, phosphorus 7.9, mag 2.2, AST 265 ALT 219, albumin 1.1. Chest radiograph appears unchanged from prior. Dialysis x1 today 03/10: Afebrile. Seen on vent, 20/450/60/7 with ABG 7.3 . Tolerated dialysis well on 03/09. LFTs similar. 03/11: Afebrile. Seen on vent, sedated. Still requiring Levophed for BP support. WBC 16.7, Hb 8.1, NA 130, ABG 7.3 on 55% FiO2 PEEP 6. On Zosyn and Zyvox Diflucan. Dialysis today 03/12: Afebrile. Still requiring Levophed for BP support sedated with Versed febrile Precedex. WBC 16.1, Hb 8.5, platelets 185, NA 133. Trach plan tentatively 03/17. O2 saturations 93% on 50% FiO2 PEEP 6. ABG 7.38/35/79 On Zosyn and Zyvox Diflucan. 03/13: Afebrile. Still on Levophed for BP support lightly sedated. 7.31/37/61 on 45% FiO2. Plan for dialysis today. On Zosyn and Zyvox Diflucan. More swollen today. 03/14: Afebrile. Weaning down off Levophed. WBC 14.9 NA 132. O2 saturations 92% on 45% FiO2 PEEP 5. Afebrile. O2 saturations 91% on FiO2 45% PEEP 6. Continued on Zosyn and Zyvox Diflucan. Tentative trach planned 03/17/2021 CC time 31 minutes 03/16/21: Patient seen and examined in ICU. Periorbital as well as upper and lower extremity edema noted. OG feed running at 30cc/hr. Still on vent on pressure control with a rate of 24 with 45% FiO2. Patient has rectal bag. Currently she has 98% O2 sat. Currently sedated with Dexmedetomidine, Propofol, Versed, and Fentanyl. Discussed with RN. Chart reviewed. 03/17/21: Patient was seen and examined in the ICU today. Periorbital edema as wel l as abdominal and mons pubis edema was noted. Patient still on vent on pressure control with Fi02 of 45% plus 6 PEEP. Patient had rectal bag. Currently sedated on Dexmedetomidine, Propofol, Versed, and Fentanyl. Discussed with RN. Chart reviewed. 03/18/21: Patient seen and examined in ICU. On vent via trach that was placed yesterday. Vent settings are Pressure Control of 40 with FiO2 of 45% and 6 PEEP. Trach clean and dry. Orbital swelling still present. Pupils are sluggish. Patient on TPN running at 30cc/hr. Kern to bedside and rectal bag in place. Current O2 sat at 94%. Sedated on Dexmedetomidine, Propofol, Versed, and Fentanyl. Discussed with RN. Chart reviewed. 03/19/21: Patient was seen and examined in the ICU today. Currently on vent via trach on pressure control of 42, rate of 24, FiO2 of 45%, and 6 PEEP. O2 sat is at 97% while patient is being examined. Trach is clean and dry. PICC line is in place on right arm. Periorbital swelling has decreased slightly since examined yesterday. Patient is sedated on Dexmedetomidine, Propofol, Versed, and Fentanyl. Discussed with RN. Chart reviewed. 03/20/21: Patient seen and examined in the ICU. Periorbital edema is slightly decreased since yesterday. O2 sat while being examined was 93%. NG tube in place and running at 30cc/hr. Patient on vent via trach on pressure control of 40 with FiO2 of 45 and rate of 24. Sedated on Dexmedetomidine, Propofol, Versed, and Fentanyl. PICC line in place. Kern to bedside. Rectal bag present. Discussed with RN. Chart reviewed. 03/21/21: Patient was seen and examined in the ICU today. She was semi-sedated.. She was on Dexmedetomidine and Fentanyl. We are holding the Propofol. Her eyes were periodically open but she was not making meaningful eye contact or tracking. On vent via trach with pressure control of 40 and FiO2 at 45. Rate was 24. PEEP was 5. Trach was clean and dry. While being examined, her O2 sat was 94%. Rectal bag and Kern to bedside in place. NG tube in place and feeding at 30cc/hr. IV fluids still running. Levophed has been stopped. Discussed with RN. Chart reviewed. 03/22/21: Patient was seen and examined in the ICU. She was semi-sedated on Propofol and Dexmedetomidine. Her eyes were open but she did not make meaningful eye contact. Her blood pressure was elevated (198/102) while being examined and she had just been given hydralazine to lower it. There are plans to place a PEG tube tomorrow. Currently on vent via trach on pressure control of 40 with FiO2 of 45%, 5 PEEP, and a rate of 24. Current O2 sat is 98%. She is feeding through an NG tube at 30cc/hr. Rectal bag and Kern to bedside present. SCDs on patient for DVT prophylaxis. She did not do her daily dialysis today but the plan is to start back on that tomorrow. Discussed with RN. Chart reviewed. 03/23/2021: Patient remains in ICU on ventilator. FiO2 40%, PEEP 5. Trach cultures positive for [place] albicans and acinebacter ursungi. We will continue treatment with IV antibiotics and micafungin, per ID. HD per nephrology. Plans for PEG tube placement today. 30 minutes critical care time was spent reviewing charts, reviewing labs, reviewing imaging, discussion with RN. 03/24/2021: Afebrile. On vent with FiO2 45%, PEEP 5. Had attempted PEG placement per GI yesterday, but unable to locate safe path for PEG; will consider surgical opinion. Once PEG is in place she should be stable for LTAC transfer when accepted. Continue antibiotics, per ID. 30 minutes critical care time was spent reviewing charts, reviewing labs, reviewing imaging, discussion with RN. Vitals/I&O Vitals/I&O: Vital Signs Date Time Temp Pulse Resp B/P (MAP) Pulse Ox O2 Delivery O2 Flow Rate FiO2 03/24/21 05:30 74 24 170/81 (110) 97 Ventilator 03/24/21 04:00 98.5 98.5 I & O 03/23/21 03/23/21 03/24/21 15:00 23:00 07:00 Intake Total 400 ml 300 ml 799 ml Output Total 0 ml 10 ml 760 ml Balance 400 ml 290 ml 39 ml Physical Exam Physical Exam: GENERAL: Intubated and sedated. Trach HEENT: Normocephalic, atraumatic. Anicteric. Slight bilateral periorbital edema. Neck right IJ HDC clean LUNGS: Rhonchi. HEART: S1, S2. No murmurs. ABDOMEN: Obese, soft. Bowel sounds present. Nontender, nondistended. Abdominal and mons pubis edema noted. GENITOURINARY: Kern and fecal tube in place. EXTREMITIES: Edema present no cyanosis. CENTRAL NERVOUS SYSTEM: Intubated. PSYCHIATRIC: Unable to assess. Derm has pressure wounds wound pictures noted in chart. Generalized rash, PICC line , right IJ HDC clean General: Other (SEDATED) Heart: Regular rate, Normal S1, Normal S2, No murmurs, Gallops Lungs: Clear Abdomen: Normal bowel sounds, Soft, No tenderness, No hepatosplenomegaly, No masses Extremities: Other (ANASARCA) Skin: No rashes, No significant lesion Labs Labs: Laboratory Tests Test 03/23/21 08:00 03/23/21 10:22 03/23/21 14:29 03/23/21 23:33 O2 Saturation 95 % (92-99) Arterial Blood pH 7.42 (7.35-7.45) Arterial Blood pCO2 at Patient Temp 39 mmHg (35-46) Arterial Blood pO2 at Patient Temp 80 mmHg (75-108) Arterial Blood HCO3 25 mmol/L (21-28) Arterial Blood Base Excess 0 mmol/L (-3-3) FiO2 45% vent Glucose (Fingerstick) 145 mg/dL (70-99) 148 mg/dL (70-99) 135 mg/dL (70-99) Test 03/24/21 05:35 03/24/21 05:44 White Blood Count 12.2 x10^3/uL (4.0-11.0) Red Blood Count 3.35 x10^6/uL (3.50-5.40) Hemoglobin 10.0 g/dL (12.0-15.5) Hematocrit 29.8 % (36.0-47.0) Mean Corpuscular Volume 89 fL (79-100) Mean Corpuscular Hemoglobin 30 pg (25-35) Mean Corpuscular Hemoglobin Concent 34 g/dL (31-37) Red Cell Distribution Width 15.1 % (11.5-14.5) Platelet Count 244 x10^3/uL (140-400) Neutrophils (%) (Auto) 66 % (31-73) Lymphocytes (%) (Auto) 12 % (24-48) Monocytes (%) (Auto) 8 % (0-9) Eosinophils (%) (Auto) 14 % (0-3) Basophils (%) (Auto) 0 % (0-3) Neutrophils # (Auto) 8.0 x10^3/uL (1.8-7.7) Lymphocytes # (Auto) 1.4 x10^3/uL (1.0-4.8) Monocytes # (Auto) 1.0 x10^3/uL (0.0-1.1) Eosinophils # (Auto) 1.7 x10^3/uL (0.0-0.7) Basophils # (Auto) 0.0 x10^3/uL (0.0-0.2) Sodium Level 136 mmol/L (136-145) Potassium Level 3.7 mmol/L (3.5-5.1) Chloride Level 99 mmol/L (98-107) Carbon Dioxide Level 28 mmol/L (21-32) Anion Gap 9 (6-14) Blood Urea Nitrogen 25 mg/dL (7-20) Creatinine 3.1 mg/dL (0.6-1.0) Estimated GFR (Cockcroft-Gault) 16.2 Glucose Level 180 mg/dL (70-99) Calcium Level 8.7 mg/dL (8.5-10.1) Glucose (Fingerstick) 187 mg/dL (70-99) Assessment and Plan Assessmemt and Plan Problems Medical Problems: (1) Ketoacidosis Status: Acute Comment Review of Relevant I have reviewed the following items mazin (where applicable) has been applied. Medications: Current Medications Medications (Trade) Dose Ordered Sig/Pepe Route PRN Reason Start Time Stop Time Status Last Admin Dose Admin Daptomycin 480 mg/ Sodium Chloride 50 ml @ 100 mls/hr QMWF IV 03/23/21 16:00 03/23/21 16:00 Justifications for Admission Other Justification SANDI ALCARAZ MD Mar 24, 2021 07:08
[2021-03-24 07:44] LABS: BASE EXCESS ABG 0 mmol/L (-3-3); HCO3 ABG 24 mmol/L (21-28); PCO2 ABG 37 mmHg (35-46); PO2 ABG 64 mmHg (75-108); SAT O2 ABG 91 % (92-99)
[2021-03-24 09:00] LABS: FIO2 ABG 45% VENT
--- NOTE | 2021-03-24 09:26 | PDOC ---
Date of Service: DATE: 03/24/21 TIME: 09:19 Objective: Objective: D/w nurse - plans to ask IR to see re: PEG placement. Tube feeds held this morning (but tolerated last night). Vital Signs: Vital Signs Date Time Temp Pulse Resp B/P (MAP) Pulse Ox O2 Delivery O2 Flow Rate FiO2 03/24/21 07:29 94 Ventilator 03/24/21 05:30 74 24 170/81 (110) 03/24/21 04:00 98.5 98.5 Labs: Laboratory Tests Test 03/23/21 10:22 03/23/21 14:29 03/23/21 23:33 03/24/21 05:35 Glucose (Fingerstick) 145 mg/dL 148 mg/dL 135 mg/dL White Blood Count 12.2 x10^3/uL Red Blood Count 3.35 x10^6/uL Hemoglobin 10.0 g/dL Hematocrit 29.8 % Mean Corpuscular Volume 89 fL Mean Corpuscular Hemoglobin 30 pg Mean Corpuscular Hemoglobin Concent 34 g/dL Red Cell Distribution Width 15.1 % Platelet Count 244 x10^3/uL Neutrophils (%) (Auto) 66 % Lymphocytes (%) (Auto) 12 % Monocytes (%) (Auto) 8 % Eosinophils (%) (Auto) 14 % Basophils (%) (Auto) 0 % Neutrophils # (Auto) 8.0 x10^3/uL Lymphocytes # (Auto) 1.4 x10^3/uL Monocytes # (Auto) 1.0 x10^3/uL Eosinophils # (Auto) 1.7 x10^3/uL Basophils # (Auto) 0.0 x10^3/uL Sodium Level 136 mmol/L Potassium Level 3.7 mmol/L Chloride Level 99 mmol/L Carbon Dioxide Level 28 mmol/L Anion Gap 9 Blood Urea Nitrogen 25 mg/dL Creatinine 3.1 mg/dL Estimated GFR (Cockcroft-Gault) 16.2 Glucose Level 180 mg/dL Calcium Level 8.7 mg/dL Test 03/24/21 05:44 03/24/21 08:45 Glucose (Fingerstick) 187 mg/dL O2 Saturation 91 % Arterial Blood pH 7.43 Arterial Blood pCO2 at Patient Temp 37 mmHg Arterial Blood pO2 at Patient Temp 64 mmHg Arterial Blood HCO3 24 mmol/L Arterial Blood Base Excess 0 mmol/L FiO2 45% vent BLOOD CULTURE Preliminary NO GROWTH AFTER 2 DAYS Imaging: EGD 03/23 Findings: E--normal G--normal D--normal bulb. --Unable to locate safe port for PEG placement. Did not attempt. Herman. well. IMP: OP dysphagia; no safe path for PEG placement. REC: continue Dobbhoff feedings. Consider surgical opinion re: gastrostomy. KUB 03/23 FINDINGS: Tip of the feeding tube projects at the left upper quadrant angled upward at the general radiographic region of the upper stomach. There is mild gas distention of the large and small bowel loops could be due to air swallowing versus mild changes of ileus. Pulmonary infiltrates at the lung bases. Bones are unremarkable. IMPRESSION: Feeding tube placement as described above. PE: GEN: chronically ill LUNGS: trach/vent HEART: RRR ABD: Dobhoff in place (feeds not running) NEURO/PSYCH: sedated A/P: COVID-19, resp failure s/p trach, unsuccessful PEG attempt ACD -- Discussion as above, plans to IR/surgery opinion re: PEG placement. Justicifation of Admission Dx: Justifications for Admission: Justification of Admission Dx: N/A JANELLE MONTENEGRO Mar 24, 2021 09:26
--- NOTE | 2021-03-24 09:27 | PDOC ---
DATE OF SERVICE DATE: 03/24/21 TIME: 09:24 SUBJECTIVE ROS Pt ,sedated,Status post tracheostomy OBJECTIVE Vital Signs Vital Signs Date Time Temp Pulse Resp B/P (MAP) Pulse Ox O2 Delivery O2 Flow Rate FiO2 03/24/21 07:29 94 Ventilator 03/24/21 05:30 74 24 170/81 (110) 03/24/21 04:00 98.5 98.5 I & 0 Intake and Output 03/24/21 07:00 Intake Total 2571 ml Output Total 770 ml Balance 1801 ml IV Total 1072 ml Tube Feeding 1138 ml Other 361 ml Output Urine Total 70 ml Stool Total 700 ml Gastric Drainage Total 0 ml PHYSICAL EXAM Physical Exam GENERAL: Intubated and sedated. HEENT: Anicteric. . Neck Trach+ LUNGS: decreased at bases HEART: S1, S2. No murmurs. ABDOMEN: Obese, soft. Bowel sounds present. GENITOURINARY: Kern and rectal tube in place. EXTREMITIES: Edema present no cyanosis. CENTRAL NERVOUS SYSTEM: Intubated. PSYCHIATRIC: Unable to assess. DERM has pressure wounds DIAGNOSIS/ASSESSMENT Assessment & Plan BOB-ATN- anuric , requiring dialysis., currently on MWF schedule, currently no emergent indication for dialysis Supportive care, I/O avoid nephrotoxins, Monitor for recovery Access temp HDC HypoNatremia - resolved DM 2 - Glucosuria + POA COVID 19 Pneumonia - Unvaccinated Acute Resp Failure- Intubated , CxR 03/20- Continued presence of diffuse pulmonary opacities bilaterally without interval improvement. HTN antihypertensives Anemia -avoid DOYLE 2/2 to Thrombogenic state COMMENT/RELEVANT DATA Meds Current Medications Medications (Trade) Dose Ordered Sig/Pepe Start Time Stop Time Status Last Admin Dose Admin Acetaminophen (Tylenol Supp) 650 mg PRN Q6HRS PRN 02/08/21 01:45 02/17/21 10:45 DC Acetaminophen (Tylenol) 500 mg 1X PRN PRN 03/17/21 13:30 03/18/21 13:29 DC Albumin Human 200 ml @ 200 mls/hr 1X PRN PRN 03/21/21 14:45 03/21/21 20:44 DC 03/21/21 15:36 200 MLS/HR Albuterol Sulfate (Ventolin Hfa) 60 puff STK-MED ONCE 03/17/21 11:29 03/17/21 11:29 DC Alteplase, Recombinant (Cathflo For Central Catheter Clearance) 1 mg 1X ONCE 02/27/21 14:30 02/27/21 14:36 DC 02/27/21 15:19 1 MG Alteplase, Recombinant (Cathflo) 2 mg 1X ONCE 02/27/21 11:00 02/27/21 11:01 DC 02/27/21 11:20 2 MG Amlodipine Besylate (Norvasc) 5 mg DAILY 02/24/21 09:00 03/09/21 10:43 DC 02/27/21 09:10 5 MG Atorvastatin Calcium (Lipitor) 40 mg HS 02/08/21 21:00 03/23/21 21:47 40 MG Atropine Sulfate (ATROPINE 0.5mg SYRINGE) 0.5 mg PRN Q5MIN PRN 02/16/21 12:00 Azithromycin 250 mg/Sodium Chloride 250 ml @ 250 mls/hr Q24H 02/14/21 13:30 02/18/21 14:29 DC 02/18/21 11:51 250 MLS/HR Benzonatate (Tessalon Perle) 100 mg [id number] 02/10/21 23:30 02/17/21 10:45 DC 02/16/21 22:07 100 MG Bupivacaine HCl/ Epinephrine Bitart (Sensorcain-Epi 0.5%-1:[id number] Mpf) 30 ml STK-MED ONCE 03/17/21 10:47 03/17/21 10:47 DC Carvedilol (Coreg) 6.25 mg [id number] 02/08/21 20:30 02/23/21 15:50 DC 02/23/21 08:06 6.25 MG Cefazolin Sodium/ Dextrose 50 ml @ 100 mls/hr 1X PREOP ONCE 03/23/21 13:00 03/22/21 06:30 DC Ceftriaxone Sodium (Rocephin) 1 gm Q24H 02/14/21 13:00 02/23/21 07:34 DC 02/22/21 12:42 1 GM Cellulose (Surgicel Fibrillar 1x2) 1 each STK-MED ONCE 03/17/21 10:47 03/17/21 10:47 DC 03/17/21 11:56 1 EACH Daptomycin 480 mg/ Sodium Chloride 50 ml @ 100 mls/hr QMWF 03/23/21 16:00 03/23/21 16:00 100 MLS/HR Dexamethasone Sodium Phosphate (Decadron) 2 mg 1X ONCE 02/27/21 09:00 02/26/21 07:15 DC Dexmedetomidine HCl 400 mcg/ Sodium Chloride 100 ml @ 0 mls/hr CONT PRN 02/27/21 09:45 03/24/21 08:08 29.8 MLS/HR Dextrose (Dextrose 50%-Water Syringe) 12.5 gm PRN Q15MIN PRN 03/01/21 13:00 03/01/21 12:55 12.5 GM Diphenhydramine HCl (Benadryl) 25 mg 1X PRN PRN 03/17/21 13:30 03/18/21 13:29 DC Docusate Sodium (Colace Solution) 100 mg BID 02/23/21 12:00 03/23/21 21:47 100 MG Docusate Sodium (Colace) 100 mg PRN DAILY PRN 02/07/21 08:45 02/23/21 10:47 DC Enalaprilat (Vasotec Inj) 0.625 mg Q6HRS 02/08/21 16:15 02/09/21 16:01 DC 02/09/21 13:42 0.625 MG Enoxaparin Sodium (Lovenox 30mg Syringe) 30 mg Q24H 03/08/21 09:00 03/12/21 15:38 DC 03/12/21 09:04 30 MG Enoxaparin Sodium (Lovenox 40mg Syringe) 40 mg BID 02/09/21 09:00 03/08/21 13:56 DC 03/08/21 08:26 40 MG Enoxaparin Sodium (Lovenox Per Pharmacy Prophylaxis Dosing) 1 each PRN DAILY PRN 02/09/21 06:45 03/12/21 15:38 DC Ephedrine Sulfate (ePHEDrine PF IN SALINE SYRINGE) 50 mg STK-MED ONCE 03/17/21 10:56 03/17/21 10:56 DC Famotidine (Pepcid Vial) 20 mg DAILY 03/10/21 09:00 03/23/21 10:27 20 MG Fentanyl Citrate (Fentanyl 2ml Vial) 50 mcg PRN Q5MIN PRN 03/23/21 06:00 03/24/21 05:59 DC Fluconazole/ Sodium Chloride 100 ml @ 100 mls/hr Q24H 03/07/21 09:00 03/17/21 08:03 DC 03/16/21 08:29 100 MLS/HR Furosemide (Lasix) 20 mg 1X ONCE 02/16/21 22:15 02/16/21 22:16 DC 02/16/21 22:18 20 MG Glycerin/ Hypromellose/ Polyethylene (Artificial Tears) 1 drop PRN Q1HR PRN 02/17/21 10:00 Guaifenesin (Robitussin Dm) 10 ml PRN Q6HRS PRN 02/10/21 23:30 02/16/21 09:06 10 ML Haloperidol Lactate (Haldol Inj) 2.5 mg 1X ONCE 02/07/21 02:30 02/07/21 03:56 DC Heparin Sodium (Porcine) (Heparin Sodium) 5,000 unit Q8HRS 03/13/21 06:00 03/24/21 06:31 5,000 UNIT Hydralazine HCl (Apresoline Inj) 10 mg PRN Q4HRS PRN 02/11/21 12:15 03/24/21 02:21 10 MG Hydromorphone HCl (Dilaudid) 0.5 mg PRN Q10MIN PRN 03/17/21 06:00 03/17/21 19:00 DC Info (PHARMACY MONITORING -- do not chart) 1 each PRN DAILY PRN 03/23/21 10:45 Insulin Glargine (Lantus Syringe) 5 unit BID 03/06/21 09:00 03/23/21 21:53 5 UNIT Insulin Human Lispro (HumaLOG) 12 units Q6HRS 02/20/21 12:00 02/28/21 15:38 DC 02/27/21 05:41 12 UNITS Insulin Human Regular 100 ml @ 10 mls/hr 1X ONCE 02/07/21 06:30 02/07/21 16:54 DC 02/07/21 09:31 6.5 MLS/HR Insulin Human Regular 100 unit/ Sodium Chloride 101 ml @ 0 mls/hr CONT PRN PRN 02/07/21 06:00 02/07/21 16:54 DC Labetalol HCl (Normodyne Iv Push) 10 mg PRN Q2HR PRN 02/08/21 00:45 03/23/21 21:45 10 MG Lactobacillus Rhamnosus (Culturelle) 1 cap BID 02/16/21 21:00 02/17/21 10:45 DC 02/16/21 22:02 1 CAP Lidocaine HCl (Buffered Lidocaine 1%) 3 ml STK-MED ONCE 03/07/21 13:25 03/07/21 13:25 DC Linezolid (Zyvox) 600 mg BID 03/05/21 09:00 03/12/21 07:00 DC 03/11/21 20:33 600 MG Linezolid/Dextrose 300 ml @ 300 mls/hr Q12HR 03/16/21 10:00 03/18/21 07:37 DC 03/17/21 21:44 300 MLS/HR Lisinopril (Prinivil) 20 mg DAILY 02/17/21 09:00 03/09/21 10:43 DC 02/27/21 09:10 20 MG Lorazepam (Ativan Inj) 0.5 mg PRN Q6HRS PRN 02/08/21 10:00 02/16/21 22:07 0.5 MG Meropenem 1 gm/ Sodium Chloride 100 ml @ 200 mls/hr Q24H 03/18/21 17:00 03/23/21 17:00 200 MLS/HR Methylprednisolone Sodium Succinate (SOLU-Medrol 125MG VIAL) 80 mg Q8HRS 02/25/21 09:00 02/26/21 07:09 DC 02/26/21 05:52 80 MG Metoclopramide HCl (Reglan Vial) 10 mg PRN Q6HRS PRN 02/08/21 00:45 02/12/21 15:51 10 MG Micafungin Sodium 100 mg/Dextrose 100 ml @ 100 mls/hr Q24H 03/21/21 18:00 03/23/21 22:20 100 MLS/HR Midazolam HCl 100 ml @ 0 mls/hr CONT PRN 02/17/21 10:00 03/20/21 17:18 5 MLS/HR Morphine Sulfate (Morphine Sulfate) 1 mg PRN Q10MIN PRN 03/17/21 06:00 03/17/21 19:00 DC Multi-Ingred Cream/Lotion/Oil/ Oint (Artificial Tears Eye Ointment) 1 reji PRN Q1HR PRN 03/17/21 17:30 03/20/21 15:55 1 REJI Multivitamins/ Minerals Therapeutic (Centrum Multivit-Mineral Liq) 5 ml DAILY 03/14/21 09:00 03/23/21 10:26 5 ML Norepinephrine Bitartrate 8 mg/ Dextrose 258 ml @ 21.711 mls/ hr CONT PRN 03/06/21 13:45 03/19/21 18:45 23.3 MLS/HR Nystatin (Nystop) 1 reji BID 03/02/21 21:00 03/23/21 21:47 1 REJI Ondansetron HCl (Zofran Odt) 4 mg 1X ONCE 02/06/21 23:30 02/06/21 23:31 DC 02/06/21 23:57 4 MG Ondansetron HCl (Zofran) 4 mg 1X ONCE 02/07/21 20:00 02/07/21 20:07 DC 02/07/21 20:06 4 MG Phenylephrine HCl (PHENYLEPHRINE in 0.9% NACL PF) 1 mg STK-MED ONCE 03/17/21 10:56 03/17/21 10:56 DC Piperacillin Sod/ Tazobactam Sod (Zosyn Per Pharmacy) 1 each PRN DAILY PRN 02/23/21 07:45 03/17/21 10:04 DC Piperacillin Sod/ Tazobactam Sod 2.25 gm/Sodium Chloride 50 ml @ 100 mls/hr Q8HRS 03/07/21 14:00 03/17/21 08:03 DC 03/17/21 05:58 100 MLS/HR Piperacillin Sod/ Tazobactam Sod 3.375 gm/Sodium Chloride 50 ml @ 100 mls/hr Q6HRS 03/14/21 18:00 Cancel Piperacillin Sod/ Tazobactam Sod 4.5 gm/Sodium Chloride 100 ml @ 200 mls/hr Q6HRS 02/23/21 08:00 03/07/21 08:18 DC 03/07/21 06:12 200 MLS/HR Potassium Chloride/Water 100 ml @ 100 mls/hr PRN Q1HR PRN 02/07/21 06:00 02/07/21 16:54 DC Potassium Chloride (Klor-Con) 40 meq 1X ONCE 02/13/21 12:00 02/13/21 12:01 DC 02/13/21 13:21 40 MEQ Prochlorperazine Edisylate (Compazine) 10 mg PRN Q6HRS PRN 02/07/21 08:45 02/12/21 10:35 10 MG Propofol 100 ml @ 0 mls/hr CONT PRN 02/17/21 10:00 03/23/21 20:30 7 MLS/HR Remdesivir 100 mg/ Sodium Chloride 230 ml @ 460 mls/hr Q24H 02/15/21 12:00 02/18/21 12:29 DC 02/18/21 11:52 460 MLS/HR Remdesivir 200 mg/ Sodium Chloride 210 ml @ 210 mls/hr 1X ONCE 02/11/21 13:00 02/12/21 11:55 DC 02/11/21 14:33 210 MLS/HR Ringer's Solution 1,000 ml @ 30 mls/hr Q24H 03/23/21 06:00 03/23/21 17:59 Cancel Rocuronium [place] (Zemuron) 50 mg STK-MED ONCE 03/17/21 11:39 03/17/21 11:39 DC Sennosides (Senna) 17.2 mg PRN BID PRN 02/07/21 08:45 02/22/21 08:29 17.2 MG Sevoflurane (Ultane) 30 ml STK-MED ONCE 03/17/21 12:20 03/17/21 12:20 DC Sodium Chloride 1,000 ml @ 400 mls/hr Q2H30M PRN 03/23/21 10:45 03/23/21 22:44 DC Sodium Chloride (Normal Saline Flush) 10 ml 1X PRN PRN 03/20/21 12:30 03/21/21 12:29 DC Succinylcholine Chloride (Anectine) 200 mg STK-MED ONCE 02/17/21 10:00 02/25/21 08:40 DC Vancomycin HCl (Vanco Per Pharmacy) 1 each PRN DAILY PRN 03/04/21 18:30 03/05/21 08:59 DC 03/04/21 19:47 1 EACH Vancomycin HCl (Vancomycin Trough Level) 1 each 1X ONCE 03/06/21 07:00 03/06/21 07:01 Cancel Vancomycin HCl 1.5 gm/Sodium Chloride 500 ml @ 250 mls/hr Q12H 03/05/21 07:30 03/05/21 08:58 DC Vancomycin HCl 1 gm/Sodium Chloride 250 ml @ 250 mls/hr Q12H 03/04/21 20:00 UNV Vancomycin HCl 2 gm/Sodium Chloride 500 ml @ 250 mls/hr 1X ONCE 03/04/21 19:00 03/04/21 20:59 DC 03/04/21 19:26 250 MLS/HR Vecuronium [place] (Norcuron Bolus) 6 mg PRN Q2HRS PRN 03/06/21 14:30 03/16/21 10:16 5 MG Vitamin A/Vitamin D (Vitamin A & D Ointment) 1 reji PRN Q1HR PRN 03/10/21 01:45 03/20/21 09:34 1 REJI Lab Laboratory Tests Test 03/23/21 10:22 03/23/21 14:29 03/23/21 23:33 03/24/21 05:35 Glucose (Fingerstick) 145 mg/dL (70-99) 148 mg/dL (70-99) 135 mg/dL (70-99) White Blood Count 12.2 x10^3/uL (4.0-11.0) Red Blood Count 3.35 x10^6/uL (3.50-5.40) Hemoglobin 10.0 g/dL (12.0-15.5) Hematocrit 29.8 % (36.0-47.0) Mean Corpuscular Volume 89 fL (79-100) Mean Corpuscular Hemoglobin 30 pg (25-35) Mean Corpuscular Hemoglobin Concent 34 g/dL (31-37) Red Cell Distribution Width 15.1 % (11.5-14.5) Platelet Count 244 x10^3/uL (140-400) Neutrophils (%) (Auto) 66 % (31-73) Lymphocytes (%) (Auto) 12 % (24-48) Monocytes (%) (Auto) 8 % (0-9) Eosinophils (%) (Auto) 14 % (0-3) Basophils (%) (Auto) 0 % (0-3) Neutrophils # (Auto) 8.0 x10^3/uL (1.8-7.7) Lymphocytes # (Auto) 1.4 x10^3/uL (1.0-4.8) Monocytes # (Auto) 1.0 x10^3/uL (0.0-1.1) Eosinophils # (Auto) 1.7 x10^3/uL (0.0-0.7) Basophils # (Auto) 0.0 x10^3/uL (0.0-0.2) Sodium Level 136 mmol/L (136-145) Potassium Level 3.7 mmol/L (3.5-5.1) Chloride Level 99 mmol/L (98-107) Carbon Dioxide Level 28 mmol/L (21-32) Anion Gap 9 (6-14) Blood Urea Nitrogen 25 mg/dL (7-20) Creatinine 3.1 mg/dL (0.6-1.0) Estimated GFR (Cockcroft-Gault) 16.2 Glucose Level 180 mg/dL (70-99) Calcium Level 8.7 mg/dL (8.5-10.1) Test 03/24/21 05:44 03/24/21 08:45 Glucose (Fingerstick) 187 mg/dL (70-99) O2 Saturation 91 % (92-99) Arterial Blood pH 7.43 (7.35-7.45) Arterial Blood pCO2 at Patient Temp 37 mmHg (35-46) Arterial Blood pO2 at Patient Temp 64 mmHg (75-108) Arterial Blood HCO3 24 mmol/L (21-28) Arterial Blood Base Excess 0 mmol/L (-3-3) FiO2 45% vent Results All relevant outside records, renal labs, imaging studies, telemetry/EKG's were reviewed. Justicifation of Admission Dx: Justifications for Admission: Justification of Admission Dx: N/A GIGI CARMEN MD Mar 24, 2021 09:27
[2021-03-24] MEDS: NYSTATIN TOPICAL POWDER 15GM BOTTLE. TP SCH ×2 (10:43→21:49)
[2021-03-24] MEDS: FAMOTIDINE 20 MG/2 ML VIAL IVP SCH (10:43)
[2021-03-24] MEDS: INSULIN GLARGINE SYRINGE. SQ SCH ×2 (10:43→20:40)
[2021-03-24] MEDS: DOCUSATE 100 MG/10 ML SOLUTION. PO SCH ×2 (10:43→21:49)
[2021-03-24] MEDS: MULTIVITAMINS,THERAPEUTIC 5 ML ORAL LIQUID. PEG SCH (10:44)
--- NOTE | 2021-03-24 10:57 | PDOC ---
PULMONARY PROGRESS NOTES DATE: 03/24/21 TIME: 10:56 Subjective pt. remain on vent support. afebrile no overnight concerns On Precedex. Off sedation Bedside PEG could not be placed Vitals Vital Signs Date Time Temp Pulse Resp B/P (MAP) Pulse Ox O2 Delivery O2 Flow Rate FiO2 03/24/21 08:00 Mechanical Ventilator 03/24/21 07:29 94 03/24/21 05:30 74 24 170/81 (110) 03/24/21 04:00 98.5 98.5 Lungs: Clear Cardiovascular: S1 Abdomen: Soft Skin: Warm Labs Laboratory Tests Test 03/22/21 11:53 03/22/21 17:53 03/22/21 23:48 03/23/21 04:50 Glucose (Fingerstick) 174 mg/dL (70-99) 185 mg/dL (70-99) 174 mg/dL (70-99) White Blood Count 13.2 x10^3/uL (4.0-11.0) Red Blood Count 3.11 x10^6/uL (3.50-5.40) Hemoglobin 9.1 g/dL (12.0-15.5) Hematocrit 27.8 % (36.0-47.0) Mean Corpuscular Volume 90 fL (79-100) Mean Corpuscular Hemoglobin 29 pg (25-35) Mean Corpuscular Hemoglobin Concent 33 g/dL (31-37) Red Cell Distribution Width 15.4 % (11.5-14.5) Platelet Count 247 x10^3/uL (140-400) Neutrophils (%) (Auto) 67 % (31-73) Lymphocytes (%) (Auto) 11 % (24-48) Monocytes (%) (Auto) 8 % (0-9) Eosinophils (%) (Auto) 12 % (0-3) Basophils (%) (Auto) 2 % (0-3) Neutrophils # (Auto) 8.8 x10^3/uL (1.8-7.7) Lymphocytes # (Auto) 1.4 x10^3/uL (1.0-4.8) Monocytes # (Auto) 1.1 x10^3/uL (0.0-1.1) Eosinophils # (Auto) 1.6 x10^3/uL (0.0-0.7) Basophils # (Auto) 0.3 x10^3/uL (0.0-0.2) Sodium Level 135 mmol/L (136-145) Potassium Level 3.7 mmol/L (3.5-5.1) Chloride Level 99 mmol/L (98-107) Carbon Dioxide Level 26 mmol/L (21-32) Anion Gap 10 (6-14) Blood Urea Nitrogen 34 mg/dL (7-20) Creatinine 3.6 mg/dL (0.6-1.0) Estimated GFR (Cockcroft-Gault) 13.7 Glucose Level 190 mg/dL (70-99) Calcium Level 9.0 mg/dL (8.5-10.1) Test 03/23/21 08:00 03/23/21 10:22 03/23/21 14:29 03/23/21 23:33 O2 Saturation 95 % (92-99) Arterial Blood pH 7.42 (7.35-7.45) Arterial Blood pCO2 at Patient Temp 39 mmHg (35-46) Arterial Blood pO2 at Patient Temp 80 mmHg (75-108) Arterial Blood HCO3 25 mmol/L (21-28) Arterial Blood Base Excess 0 mmol/L (-3-3) FiO2 45% vent Glucose (Fingerstick) 145 mg/dL (70-99) 148 mg/dL (70-99) 135 mg/dL (70-99) Test 03/24/21 05:35 03/24/21 05:44 03/24/21 08:45 White Blood Count 12.2 x10^3/uL (4.0-11.0) Red Blood Count 3.35 x10^6/uL (3.50-5.40) Hemoglobin 10.0 g/dL (12.0-15.5) Hematocrit 29.8 % (36.0-47.0) Mean Corpuscular Volume 89 fL (79-100) Mean Corpuscular Hemoglobin 30 pg (25-35) Mean Corpuscular Hemoglobin Concent 34 g/dL (31-37) Red Cell Distribution Width 15.1 % (11.5-14.5) Platelet Count 244 x10^3/uL (140-400) Neutrophils (%) (Auto) 66 % (31-73) Lymphocytes (%) (Auto) 12 % (24-48) Monocytes (%) (Auto) 8 % (0-9) Eosinophils (%) (Auto) 14 % (0-3) Basophils (%) (Auto) 0 % (0-3) Neutrophils # (Auto) 8.0 x10^3/uL (1.8-7.7) Lymphocytes # (Auto) 1.4 x10^3/uL (1.0-4.8) Monocytes # (Auto) 1.0 x10^3/uL (0.0-1.1) Eosinophils # (Auto) 1.7 x10^3/uL (0.0-0.7) Basophils # (Auto) 0.0 x10^3/uL (0.0-0.2) Sodium Level 136 mmol/L (136-145) Potassium Level 3.7 mmol/L (3.5-5.1) Chloride Level 99 mmol/L (98-107) Carbon Dioxide Level 28 mmol/L (21-32) Anion Gap 9 (6-14) Blood Urea Nitrogen 25 mg/dL (7-20) Creatinine 3.1 mg/dL (0.6-1.0) Estimated GFR (Cockcroft-Gault) 16.2 Glucose Level 180 mg/dL (70-99) Calcium Level 8.7 mg/dL (8.5-10.1) Glucose (Fingerstick) 187 mg/dL (70-99) O2 Saturation 91 % (92-99) Arterial Blood pH 7.43 (7.35-7.45) Arterial Blood pCO2 at Patient Temp 37 mmHg (35-46) Arterial Blood pO2 at Patient Temp 64 mmHg (75-108) Arterial Blood HCO3 24 mmol/L (21-28) Arterial Blood Base Excess 0 mmol/L (-3-3) FiO2 45% vent Laboratory Tests Test 03/23/21 14:29 03/23/21 23:33 03/24/21 05:35 03/24/21 05:44 Glucose (Fingerstick) 148 mg/dL (70-99) 135 mg/dL (70-99) 187 mg/dL (70-99) White Blood Count 12.2 x10^3/uL (4.0-11.0) Red Blood Count 3.35 x10^6/uL (3.50-5.40) Hemoglobin 10.0 g/dL (12.0-15.5) Hematocrit 29.8 % (36.0-47.0) Mean Corpuscular Volume 89 fL (79-100) Mean Corpuscular Hemoglobin 30 pg (25-35) Mean Corpuscular Hemoglobin Concent 34 g/dL (31-37) Red Cell Distribution Width 15.1 % (11.5-14.5) Platelet Count 244 x10^3/uL (140-400) Neutrophils (%) (Auto) 66 % (31-73) Lymphocytes (%) (Auto) 12 % (24-48) Monocytes (%) (Auto) 8 % (0-9) Eosinophils (%) (Auto) 14 % (0-3) Basophils (%) (Auto) 0 % (0-3) Neutrophils # (Auto) 8.0 x10^3/uL (1.8-7.7) Lymphocytes # (Auto) 1.4 x10^3/uL (1.0-4.8) Monocytes # (Auto) 1.0 x10^3/uL (0.0-1.1) Eosinophils # (Auto) 1.7 x10^3/uL (0.0-0.7) Basophils # (Auto) 0.0 x10^3/uL (0.0-0.2) Sodium Level 136 mmol/L (136-145) Potassium Level 3.7 mmol/L (3.5-5.1) Chloride Level 99 mmol/L (98-107) Carbon Dioxide Level 28 mmol/L (21-32) Anion Gap 9 (6-14) Blood Urea Nitrogen 25 mg/dL (7-20) Creatinine 3.1 mg/dL (0.6-1.0) Estimated GFR (Cockcroft-Gault) 16.2 Glucose Level 180 mg/dL (70-99) Calcium Level 8.7 mg/dL (8.5-10.1) Test 03/24/21 08:45 O2 Saturation 91 % (92-99) Arterial Blood pH 7.43 (7.35-7.45) Arterial Blood pCO2 at Patient Temp 37 mmHg (35-46) Arterial Blood pO2 at Patient Temp 64 mmHg (75-108) Arterial Blood HCO3 24 mmol/L (21-28) Arterial Blood Base Excess 0 mmol/L (-3-3) FiO2 45% vent Medications Active Scripts Medications Dose Route/Sig Max Daily Dose Days Date Category Novolog Flexpen (Insulin Aspart) 100 Unit/1 Ml Insuln.pen 3-7 SQ TIDACHC 02/07/21 Reported Lisinopril 5 Mg Tablet 1 Tab PO DAILY 02/07/21 Reported Lantus Solostar (Insulin Glargine,Hum.rec.anlog) 100 Unit/1 Ml Insuln.pen 5 Unit SQ QHS 04/09/15 Reported Atorvastatin Calcium 40 Mg Tablet 40 Mg PO HS 04/09/15 Reported Comments 03/20/21 CXR IMPRESSION: Continued presence of diffuse pulmonary opacities bilaterally without interval improvement. Impression . IMPRESSION: 1. Acute hypoxic respiratory failure secondary to COVID-19 viral pneumonia/acute lung injury and early acute respiratory distress syndrome. S/P intubation 02/17/21 2. Nonsmoker. 3. Abnormal chest x-ray consistent with COVID-19 viral pneumonia.--- 4. Diabetic ketoacidosis--resolved 5. Underlying obesity contributing to hypoxia as well. 6. BOB worsening hemodialysis started 03/07 7. Fever, per ID--resolved 8. Abnormal chest x-ray with diffuse interstitial infiltrates compatible with viral pneumonia 9. [place] in the sputum is a contamination 10. Septic shock--resolved Plan . Updated 03/24/21 Continue current vent support, currently on 40% FiO2 and volume control mechanical ventilation. We will try CPAP trials. Surgery consulted for surgical PEG. Currently on Precedex drip. Follow CXR/ABG Follow nephrology recs Monitor HBG , follow GI recs Follow ID recs for ABX DVT/GI PPX D/W RN and RT Updated 03/23/21 Continue current vent support, currently on 45% in PC mode. We will ask respiratory to switch her to volume control mode. Will monitor peak airway pressures. Currently on Precedex drip. Follow CXR/ABG Follow nephrology recs Monitor HBG , follow GI recs Follow ID recs for ABX DVT/GI PPX D/W RN and RT PEG tube is a scheduled for today and after that she should be stable for LTAC transfer once accepted Updated 03/22/21 Continue current vent support, currently on 45% in PC mode. We will ask respiratory to switch her to volume control mode in a.m. Did not tolerated coming off sedation well with increasing blood pressure. Currently on low-dose fentanyl and Precedex drip. Follow CXR/ABG Follow nephrology recs Monitor HBG , follow GI recs Follow ID recs for ABX DVT/GI PPX D/W RN and RT PEG tube is a scheduled for tomorrow and after that she should be stable for LTAC transfer Updated 03/21/21 Continue current vent support, currently on 45% in PC mode Discontinue sedation and assess mental status. Once more awake CPAP trial. Follow CXR/ABG Follow nephrology recs Monitor HBG , follow GI recs Follow ID recs for ABX DVT/GI PPX D/W RN and RT Updated 03/20/21 Continue current vent support, currently on 45% in PC mode will reduce to 40% and change to 1:2 IE ratio Reduce sedation and assess mental status Follow CXR/ABG Follow nephrology recs Monitor HBG , follow GI recs Follow ID recs for ABX DVT/GI PPX D/W RN and RT Updated 03/[address] Whitley On exam she appears to be less puffy Finish course of remdesivir and dexamethasone Hemodialysis DVT GI prophylaxis Off pressors Chest x-ray reviewed, no significant change, 03/18 updated 03/18 Continue current mechanical support Hemodialysis per Dr. Sims Nutritional support DVT GI prophylaxis EMILY POSADA MD Mar 24, 2021 10:57
--- NOTE | 2021-03-24 11:03 | PDOC ---
Infectious Disease Note Subjective Subjective Pt intubated sedated Status post tracheostomy ROS ROS No nausea vomiting diarrhea Vital Sign Vital Signs Vital Signs Date Time Temp Pulse Resp B/P (MAP) Pulse Ox O2 Delivery O2 Flow Rate FiO2 03/24/21 08:00 Mechanical Ventilator 03/24/21 07:29 94 03/24/21 05:30 74 24 170/81 (110) 03/24/21 04:00 98.5 98.5 Physical Exam PHYSICAL EXAM GENERAL: Intubated and sedated. Trach HEENT: Normocephalic, atraumatic. Anicteric. Slight bilateral periorbital edema. Neck right IJ HDC clean LUNGS: Rhonchi. HEART: S1, S2. No murmurs. ABDOMEN: Obese, soft. Bowel sounds present. Nontender, nondistended. Abdominal and mons pubis edema noted. GENITOURINARY: Kern and fecal tube in place. EXTREMITIES: Edema present no cyanosis. CENTRAL NERVOUS SYSTEM: Intubated. PSYCHIATRIC: Unable to assess. Derm has pressure wounds wound pictures noted in chart. Generalized rash, PICC line , right IJ HDC clean Labs Lab Laboratory Tests Test 03/23/21 14:29 03/23/21 23:33 03/24/21 05:35 03/24/21 05:44 Glucose (Fingerstick) 148 mg/dL (70-99) 135 mg/dL (70-99) 187 mg/dL (70-99) White Blood Count 12.2 x10^3/uL (4.0-11.0) Red Blood Count 3.35 x10^6/uL (3.50-5.40) Hemoglobin 10.0 g/dL (12.0-15.5) Hematocrit 29.8 % (36.0-47.0) Mean Corpuscular Volume 89 fL (79-100) Mean Corpuscular Hemoglobin 30 pg (25-35) Mean Corpuscular Hemoglobin Concent 34 g/dL (31-37) Red Cell Distribution Width 15.1 % (11.5-14.5) Platelet Count 244 x10^3/uL (140-400) Neutrophils (%) (Auto) 66 % (31-73) Lymphocytes (%) (Auto) 12 % (24-48) Monocytes (%) (Auto) 8 % (0-9) Eosinophils (%) (Auto) 14 % (0-3) Basophils (%) (Auto) 0 % (0-3) Neutrophils # (Auto) 8.0 x10^3/uL (1.8-7.7) Lymphocytes # (Auto) 1.4 x10^3/uL (1.0-4.8) Monocytes # (Auto) 1.0 x10^3/uL (0.0-1.1) Eosinophils # (Auto) 1.7 x10^3/uL (0.0-0.7) Basophils # (Auto) 0.0 x10^3/uL (0.0-0.2) Sodium Level 136 mmol/L (136-145) Potassium Level 3.7 mmol/L (3.5-5.1) Chloride Level 99 mmol/L (98-107) Carbon Dioxide Level 28 mmol/L (21-32) Anion Gap 9 (6-14) Blood Urea Nitrogen 25 mg/dL (7-20) Creatinine 3.1 mg/dL (0.6-1.0) Estimated GFR (Cockcroft-Gault) 16.2 Glucose Level 180 mg/dL (70-99) Calcium Level 8.7 mg/dL (8.5-10.1) Test 03/24/21 08:45 O2 Saturation 91 % (92-99) Arterial Blood pH 7.43 (7.35-7.45) Arterial Blood pCO2 at Patient Temp 37 mmHg (35-46) Arterial Blood pO2 at Patient Temp 64 mmHg (75-108) Arterial Blood HCO3 24 mmol/L (21-28) Arterial Blood Base Excess 0 mmol/L (-3-3) FiO2 45% vent Micro GRAM STAIN EVALUATION Final Final This specimen is of good quality and is acceptable for routine bacterial culture. Culture results to follow. NO ORGANISMS SEEN. SQUAMOUS EPI CELL:RARE PMN (WBCs):MODERATE Unless otherwise specified, Testing Performed by: [address] [id number] For Inquires, the Physician may contact the Microbiology department at [phone] RESPIRATORY CULTURE Final Final MODERATE GRAM NEGATIVE RODS on 03/18/21 at 1124 FINAL ID= [ACINETOBACTER [email or web address].] ACINETOBACTER URSINGII. ANTIMICROBIAL SUSCEPTIBILITY Final Comment NEG SAGE 56 ACINETOBACTER URSINGII. ANTIBIOTIC RESULT INTERPRETATION AMPICILLIN/SULBACTAM <=4/2 S AMIKACIN <=16 S CEFTRIAXONE 2 S CEFTAZIDIME 16 I CEFOTAXIME 16 I CIPROFLOXACIN <=0.25 S CEFEPIME 4 S GENTAMICIN <=2 S LEVOFLOXACIN <=0.5 S RUN DATE: 03/19/21 [facility] *LIVE* PAGE 2 RUN TIME: 1120 Specimen Inquiry SPEC: [id number] PATIENT: ARIADNA BANKS [id number] (Continued) ------ ------ Procedure Result CONTINUED ON NEXT PAGE RUN DATE: 03/19/21 [facility] *LIVE* PAGE 3 RUN TIME: 1120 Specimen Inquiry SPEC: [id number] PATIENT: ARIADNA BANKS [id number] (Continued) Procedure Result ANTIMICROBIAL SUSCEPTIBILITY Final (continued) MINOCYCLINE <=4 S MEROPENEM <=1 S TRIMETHOPRIM/SULFAMETHOXAZOLE <=0.5/9.5 S TOBRAMYCIN <=2 S Unless otherwise specified, Testing Performed by: [facility] [address] [place] [address] For Inquires, the Physician may contact the Microbiology department at [phone] Objective Assessment 1. Febrile illness. Improved 2. COVID-19 infection present on date of admission, 02/06/2021. Status post remdesivir, dexamethasone. 3. Acute hypoxic respiratory failure, status post intubation. S/P Trach on 03/17 Trach cultures positive for Rock albicans and now acinebacter ursungi 4. Diabetes. 5. Diarrhea. 6. Hypertension. 7. Hyperlipidemia. 8. Anemia. 9. BOB on HD 10. rock albican, ua neg Plan Plan of Care Cont Meropenem add daptomycin and micafungin Follow-up lab ,cultures, C. diff PCR negative Kern changed per team Wound care per wound treatment Offload Continue supportive care. Awaiting PEG on Tuesday Prognosis guarded. D/W BLANCA CURIEL MD Mar 24, 2021 11:03
--- NOTE | 2021-03-24 11:07 | NUR ---
SS following up with discharge planning. SS reviewed pt chart and discussed with pt RN. Pt is currently on the vent at 45%. COVID19 recovered. Trach in place. Pt on Sub Q Heparin, Fentanyl, and Precedex. Pt on IV Daptomycin, IV Micafungin, and IV Meropenem. Dobhoff in place. GI unable to place PEG yesterday. IR consulted. Self pay. Med Assist following and awaiting pt's spouse to bring in necessary paperwork to complete applications for Medicaid and Disability. Pt currently needing LTACH placement at this time, but currently has no benefits. SS will continue to follow for discharge planning.
--- NOTE | 2021-03-24 16:20 | NUR ---
Wound/Ostomy Care Wound Type/Assessment: Wound care follow up for sacral pressure ulcer that is now eschar covered and unstageable. Cleansed area and redressed. Pt also has a stage II PU to left buttock from rectal tube. Cleansed, pictured, measured and redressed. Treatment Recommendations/Plan: Cleanse wounds. Apply honey alginate to sacral wound, cover with foam dressing, change every 2-3 days. Left buttock- apply A&D ointment BID and PRN Education provided: Pt sedated on vent, unable to educate. Offloading surface/device: ICU bed, will need P500 if transferred Recommended Referrals/Tests: na Discharge Recommendations for dressings: see above
[2021-03-24] MEDS: MEROPENEM 1 GM in IV NORMAL SALINE 100ML 100 ML IV SCH (16:36)
[2021-03-24] MEDS: MICAFUNGIN 100 MG in IV DEXTROSE 5% 100ML 100 ML IV SCH (16:36)
--- NOTE | 2021-03-24 19:28 | PDOC ---
SURGICAL PROGRESS NOTE DATE: 03/24/21 TIME: 19:26 Subjective Pt intubated and sedated. Stable Vital Signs Vital Signs Date Time Temp Pulse Resp B/P (MAP) Pulse Ox O2 Delivery O2 Flow Rate FiO2 03/24/21 19:00 122 24 86/65 (72) 97 Ventilator 03/24/21 16:00 98.6 98.6 I&O Intake and Output 03/24/21 07:00 Intake Total 2571 ml Output Total 770 ml Balance 1801 ml IV Total 1072 ml Tube Feeding 1138 ml Other 361 ml Output Urine Total 70 ml Stool Total 700 ml Gastric Drainage Total 0 ml General: No acute distress Abdomen: Soft Labs Laboratory Tests Test 03/22/21 23:48 03/23/21 04:50 03/23/21 08:00 03/23/21 10:22 Glucose (Fingerstick) 174 mg/dL (70-99) 145 mg/dL (70-99) White Blood Count 13.2 x10^3/uL (4.0-11.0) Red Blood Count 3.11 x10^6/uL (3.50-5.40) Hemoglobin 9.1 g/dL (12.0-15.5) Hematocrit 27.8 % (36.0-47.0) Mean Corpuscular Volume 90 fL (79-100) Mean Corpuscular Hemoglobin 29 pg (25-35) Mean Corpuscular Hemoglobin Concent 33 g/dL (31-37) Red Cell Distribution Width 15.4 % (11.5-14.5) Platelet Count 247 x10^3/uL (140-400) Neutrophils (%) (Auto) 67 % (31-73) Lymphocytes (%) (Auto) 11 % (24-48) Monocytes (%) (Auto) 8 % (0-9) Eosinophils (%) (Auto) 12 % (0-3) Basophils (%) (Auto) 2 % (0-3) Neutrophils # (Auto) 8.8 x10^3/uL (1.8-7.7) Lymphocytes # (Auto) 1.4 x10^3/uL (1.0-4.8) Monocytes # (Auto) 1.1 x10^3/uL (0.0-1.1) Eosinophils # (Auto) 1.6 x10^3/uL (0.0-0.7) Basophils # (Auto) 0.3 x10^3/uL (0.0-0.2) Sodium Level 135 mmol/L (136-145) Potassium Level 3.7 mmol/L (3.5-5.1) Chloride Level 99 mmol/L (98-107) Carbon Dioxide Level 26 mmol/L (21-32) Anion Gap 10 (6-14) Blood Urea Nitrogen 34 mg/dL (7-20) Creatinine 3.6 mg/dL (0.6-1.0) Estimated GFR (Cockcroft-Gault) 13.7 Glucose Level 190 mg/dL (70-99) Calcium Level 9.0 mg/dL (8.5-10.1) O2 Saturation 95 % (92-99) Arterial Blood pH 7.42 (7.35-7.45) Arterial Blood pCO2 at Patient Temp 39 mmHg (35-46) Arterial Blood pO2 at Patient Temp 80 mmHg (75-108) Arterial Blood HCO3 25 mmol/L (21-28) Arterial Blood Base Excess 0 mmol/L (-3-3) FiO2 45% vent Test 03/23/21 14:29 03/23/21 23:33 03/24/21 05:35 03/24/21 05:44 Glucose (Fingerstick) 148 mg/dL (70-99) 135 mg/dL (70-99) 187 mg/dL (70-99) White Blood Count 12.2 x10^3/uL (4.0-11.0) Red Blood Count 3.35 x10^6/uL (3.50-5.40) Hemoglobin 10.0 g/dL (12.0-15.5) Hematocrit 29.8 % (36.0-47.0) Mean Corpuscular Volume 89 fL (79-100) Mean Corpuscular Hemoglobin 30 pg (25-35) Mean Corpuscular Hemoglobin Concent 34 g/dL (31-37) Red Cell Distribution Width 15.1 % (11.5-14.5) Platelet Count 244 x10^3/uL (140-400) Neutrophils (%) (Auto) 66 % (31-73) Lymphocytes (%) (Auto) 12 % (24-48) Monocytes (%) (Auto) 8 % (0-9) Eosinophils (%) (Auto) 14 % (0-3) Basophils (%) (Auto) 0 % (0-3) Neutrophils # (Auto) 8.0 x10^3/uL (1.8-7.7) Lymphocytes # (Auto) 1.4 x10^3/uL (1.0-4.8) Monocytes # (Auto) 1.0 x10^3/uL (0.0-1.1) Eosinophils # (Auto) 1.7 x10^3/uL (0.0-0.7) Basophils # (Auto) 0.0 x10^3/uL (0.0-0.2) Sodium Level 136 mmol/L (136-145) Potassium Level 3.7 mmol/L (3.5-5.1) Chloride Level 99 mmol/L (98-107) Carbon Dioxide Level 28 mmol/L (21-32) Anion Gap 9 (6-14) Blood Urea Nitrogen 25 mg/dL (7-20) Creatinine 3.1 mg/dL (0.6-1.0) Estimated GFR (Cockcroft-Gault) 16.2 Glucose Level 180 mg/dL (70-99) Calcium Level 8.7 mg/dL (8.5-10.1) Test 03/24/21 08:45 03/24/21 13:29 03/24/21 18:21 O2 Saturation 91 % (92-99) Arterial Blood pH 7.43 (7.35-7.45) Arterial Blood pCO2 at Patient Temp 37 mmHg (35-46) Arterial Blood pO2 at Patient Temp 64 mmHg (75-108) Arterial Blood HCO3 24 mmol/L (21-28) Arterial Blood Base Excess 0 mmol/L (-3-3) FiO2 45% vent Glucose (Fingerstick) 72 mg/dL (70-99) 161 mg/dL (70-99) Laboratory Tests Test 03/23/21 23:33 03/24/21 05:35 03/24/21 05:44 03/24/21 08:45 Glucose (Fingerstick) 135 mg/dL (70-99) 187 mg/dL (70-99) White Blood Count 12.2 x10^3/uL (4.0-11.0) Red Blood Count 3.35 x10^6/uL (3.50-5.40) Hemoglobin 10.0 g/dL (12.0-15.5) Hematocrit 29.8 % (36.0-47.0) Mean Corpuscular Volume 89 fL (79-100) Mean Corpuscular Hemoglobin 30 pg (25-35) Mean Corpuscular Hemoglobin Concent 34 g/dL (31-37) Red Cell Distribution Width 15.1 % (11.5-14.5) Platelet Count 244 x10^3/uL (140-400) Neutrophils (%) (Auto) 66 % (31-73) Lymphocytes (%) (Auto) 12 % (24-48) Monocytes (%) (Auto) 8 % (0-9) Eosinophils (%) (Auto) 14 % (0-3) Basophils (%) (Auto) 0 % (0-3) Neutrophils # (Auto) 8.0 x10^3/uL (1.8-7.7) Lymphocytes # (Auto) 1.4 x10^3/uL (1.0-4.8) Monocytes # (Auto) 1.0 x10^3/uL (0.0-1.1) Eosinophils # (Auto) 1.7 x10^3/uL (0.0-0.7) Basophils # (Auto) 0.0 x10^3/uL (0.0-0.2) Sodium Level 136 mmol/L (136-145) Potassium Level 3.7 mmol/L (3.5-5.1) Chloride Level 99 mmol/L (98-107) Carbon Dioxide Level 28 mmol/L (21-32) Anion Gap 9 (6-14) Blood Urea Nitrogen 25 mg/dL (7-20) Creatinine 3.1 mg/dL (0.6-1.0) Estimated GFR (Cockcroft-Gault) 16.2 Glucose Level 180 mg/dL (70-99) Calcium Level 8.7 mg/dL (8.5-10.1) O2 Saturation 91 % (92-99) Arterial Blood pH 7.43 (7.35-7.45) Arterial Blood pCO2 at Patient Temp 37 mmHg (35-46) Arterial Blood pO2 at Patient Temp 64 mmHg (75-108) Arterial Blood HCO3 24 mmol/L (21-28) Arterial Blood Base Excess 0 mmol/L (-3-3) FiO2 45% vent Test 03/24/21 13:29 03/24/21 18:21 Glucose (Fingerstick) 72 mg/dL (70-99) 161 mg/dL (70-99) Problem List Problems Medical Problems: (1) Ketoacidosis Status: Acute Assessment/Plan Needs enteral access will tentatively plan laparoscopic versus open gastrostomy placement on 03/26. Justicifation of Admission Dx: Justifications for Admission: Justification of Admission Dx: N/A DANIEL ACHARYA MD Mar 24, 2021 19:28
[2021-03-24] MEDS: ATORVASTATIN CALCIUM 40 MG TABLET. PO SCH (21:49)
[2021-03-24] MEDS: ACETAMINOPHEN 650 MG/20.3 ML SOLUTION. PEG PRN (22:02)
[2021-03-25] VITALS (30 sets, daily range): BP systolic 116–199; BP diastolic 64–106
[2021-03-25] MEDS: DEXMEDETOMIDINE 400 MCG in IV NORMAL SALINE 100ML 96 ML IV PRN ×6 (02:30→19:55)
[2021-03-25] MEDS: hydrALAZINE 20 MG/ML VIAL. IVP PRN ×2 (02:31→09:25)
[2021-03-25 06:08] LABS: CALCIUM 8.6 mg/dL (8.5-10.1); CREATININE 4.2 mg/dL (0.6-1.0); GFR 11.4; POTASSIUM 3.7 mmol/L (3.5-5.1)
[2021-03-25] MEDS: INSULIN LISPRO 300 UNITS/3 ML VIAL. SQ SCH ×4 (06:31→16:39)
[2021-03-25] MEDS: HEPARIN for SUB-Q USE 5,000 UNIT/ML VIAL. SQ SCH ×3 (06:32→23:07)
--- NOTE | 2021-03-25 07:16 | PDOC ---
[employer] PROGRESS NOTE Date of Service DOS: DATE: 03/25/21 TIME: 07:09 Chief Complaint Chief Complaint CC: Covid-19 DKA Hypotension Nausea Vomiting Combined metabolic and respiratory acidosis Acute electrolyte derangementhyponatremia, hypochloremia due to volume depletion Hyperglycemia BOB Erythrocytosis Candiduria Sacral decubitus ulcer S/P Trach on (03/17/21) Trach cultures positive for [place] albicans and now acinebacter ursungi History of Present Illness History of Present Illness Ms Borges is a 46 year old female who presented with nausea/vomiting since 7 AM 02/06/2021 in the morning. Patient stated that her recently tested po sitive for Covid. She states that he "coughed in my face because he thought it was funny." She reports subjective fevers and chills and nausea/vomiting. Denies sore throat, cough, shortness of breath. No chest pain. Does have some upper abdominal discomfort after vomiting, that she attributes to muscular strain. She was not vaccinated for Covid. 02/08: No acute events overnight. Patient seen and examined bedside and resting comfortably. Continues to complain of nausea not able to tolerate any diet at this time. Saturating 98% on room air. Patient's chart, labs, images were reviewed and discussed with RN 02/09: Afebrile, currently breathing on room air. Still with complaints of nausea and vomiting x3 today. States that she has history of similar symptoms that have been mildly improved with IV Dilaudid. 02/10: Patient febrile today with T-max 102.2 F. She still admits to nausea, denies any further vomiting. We will continue to provide supportive care and monitor for any recurrent fevers overnight. Patient continues to improve may discharge tomorrow to continue self-isolation. 02/11: Febrile overnight, T-max 102.3 F. She did become hypoxic overnight, currently breathing on 4 L nasal cannula. Also admits to associated vomiting or diarrhea overnight. Discussed with RN, will initiate remdesivir and closely monitor LFTs. IV Decadron, and prophylactic antibiotics. 02/12: Low-grade fever overnight, T-max 99.7. Currently breathing on room air. Will discontinue remdesivir, steroids, and antibiotics; will observe overnight. Still with complaints of vomiting x1 and diarrhea. We will continue to provide supportive care and hope to discharge in the next day or so. 02/13: Afebrile. Still complains of intermittent diarrhea. At the time of my evaluation she was breathing on 6 L nasal cannula; this is somewhat misleading as patient states that she did not feel short of breath but was placed on 6 L by nursing staff overnight. 02/14: Afebrile, currently breathing on 8 L nasal cannula. There has been some misleading documentation, chart oxygen this patient is requiring. Discussed with RN, will resume remdesivir to complete total of 5 days. Continue to monitor LFTs. Will add steroids, Rocephin, and azithromycin. 02/15: Afebrile. Became much more hypoxic overnight, requiring BiPAP. At the time of my evaluation she is still breathing on BiPAP. Consultation was placed to pulmonology. Had discussion with Dr. Myrick about initiating Tocilizumab 02/16: No acute events overnight. Patient becoming more hypoxic saturating 94% and requiring BiPAP. Patient will be transferred to the ICU at this time. For worsening clinical status. Discussed with pulmonary. Patient's chart, labs, images were reviewed and discussed with RN 02/17: Transferred to ICU yesterday afternoon. Seen and examined at bedside she remains on 100% FiO2 on BiPAP. Respirations do appear somewhat labored. Suspect intubation may be impending. We will closely monitor. Increase lisinopril to 20 today. 02/18: Patient required intubation yesterday afternoon. Saw and examined this morning. She is intubated and sedated. Increase insulin today. Covid protocol ordered. Wean as tolerated. Plan of care discussed with bedside nurse. 02/19: Bedside. She remains intubated and sedated. Continue Covid protocol. Wean oxygen sedation as tolerated. Pulmonary following. Plan of care discussed with bedside RN. 02/20: Patient seen and examined at bedside. She remains intubated and sedated. No major clinical changes. Continue current treatment. Pulmonary following. Plan of care discussed with bedside RN. 02/21: Patient seen and examined at bedside. Remains intubated and sedated date and admission clinical changes. Increase free water flushes today due to hypernatremia. Plan of care discussed with bedside nurse. 02/22: Patient seen and examined at bedside. O2 requirement actually improving, although remains intubated. Possible SBT in the coming days. Hypernatremia improving. Plan of care discussed bedside RN. 02/23: Patient remains in ICU on ventilator with FiO2 100%, PEEP 7. Repeat chest x-ray yesterday showed diffuse bilateral pulmonary opacities with no interval improvement. Will discontinue Rocephin and initiate Zosyn. We will continue IV steroids for a full 10-day course 02/24: Afebrile. On vent with FiO2 40%, PEEP 6. Her Coreg has been held due to persistent bradycardia. No documented history of systolic heart failure or previous echocardiogram. Will need to obtain echocardiogram prior to discharge. Continue IV steroids and antibiotics. 02/25: Afebrile. Remains ventilated with FiO2 45%, PEEP 6. Chest x-ray today showed slight improvement of the pulmonary infiltrates, no pneumothorax. Completed 10-day course of IV Decadron. Will initiate slow Solu-Medrol taper. Continue IV Zosyn. Continue supportive care. 02/26: Afebrile. On vent with FiO2 45%, PEEP 6. Completed 10 days of IV Decadron. Will continue IV Zosyn. Continue supportive care. Critical care time 30 minutes spent reviewing charts, reviewing imaging, reviewing labs, discussion with RN. 02/27: Afebrile. On vent with FiO2 45%, PEEP 6. Completed 10 days of steroids and completed remdesivir. Continue with IV Zosyn. CPAP trial yesterday. Continue NG tube and supportive care. 02/28:. Patient remains on vent with FiO2 40%, PEEP 5. Afebrile. Completed steroids and remdesivir. Some noted hypoglycemia overnight, will de-escalate basal insulin. Continue IV Zosyn. Ventilator management per pulmonology. Continue NG tube and supportive care. 03/01: On vent with FiO2 40%, PEEP 5. Afebrile. Completed steroids and remde sivir. Blood glucose well controlled. Continue empiric antibiotics with Zosyn. Ventilator management per pulmonology. Continue NG tube and supportive care. 03/02: No acute events overnight. Patient hypotensive the morning due to oversedation. Will wean off sedation and keep antihypertensive medications on board. Currently saturating 100% on vent settings of 18/450/40/5. Will attempt spontaneous breathing trial today to see how patient does. 03/03: No acute events overnight. Patient saturating 98% on vent settings of 18/450/40/5. Will defer spontaneous breathing trials to pulmonary at this time. Patient's chart, labs, images were reviewed and discussed with RN 8: No acute events overnight. Patient saturating 9 9% on vent settings of 18/450/30/5. Patient currently is unable to tolerate weaning. Per pulmonary. Patient's chart, labs, images were reviewed and discussed with RN 03/05: No acute events overnight. Patient is saturating 97% on vent settings of 18/450/55/5. Her FiO2 needs to be increased due to abnormal ABG with 7.3 //24. Patient's chart, labs, images were reviewed and discussed with RN 03/06: No acute events overnight. Patient saturating 94% on vent settings of 18/450/55/5. Chest x-ray showing increase in pulmonary infiltrates. Wound care is consulted for decubitus ulcer patient's chart, labs, images were reviewed and discussed with RN 03/07: No acute events overnight. Patient saturating 94% on vent settings of 20/450/70/8. Patient now heading into renal failure with her creatinine bumped up from 1.5-4.2. Decreased urine output. Plan for hemodialysis today and temporary catheter placement and nephrology is consulted. 03/08: No acute events overnight. Patient did have a nausea vomiting episode and tube feeds were held. KUB repeat shows NG tube still in the stomach. Will resume tube feeds at trickle and advance to goal today. Will start hemodialysis soon. 03/09: Seen on vent 20/450/60%/8. ABG 7.2 WBC 11.4, Hb 7.4, platelets 188, NA 131, K4.9, BUN 48, CR 51, glucose 199, phosphorus 7.9, mag 2.2, AST 265 ALT 219, albumin 1.1. Chest radiograph appears unchanged from prior. Dialysis x1 today 03/10: Afebrile. Seen on vent, 20/450/60/7 with ABG 7.3 . Tolerated dialysis well on 03/09. LFTs similar. 03/11: Afebrile. Seen on vent, sedated. Still requiring Levophed for BP support. WBC 16.7, Hb 8.1, NA 130, ABG 7.3 on 55% FiO2 PEEP 6. On Zosyn and Zyvox Diflucan. Dialysis today 03/12: Afebrile. Still requiring Levophed for BP support sedated with Versed febrile Precedex. WBC 16.1, Hb 8.5, platelets 185, NA 133. Trach plan tentatively 03/17. O2 saturations 93% on 50% FiO2 PEEP 6. ABG 7.38/35/79 On Zosyn and Zyvox Diflucan. 03/13: Afebrile. Still on Levophed for BP support lightly sedated. 7.31/37/61 on 45% FiO2. Plan for dialysis today. On Zosyn and Zyvox Diflucan. More swollen today. 03/14: Afebrile. Weaning down off Levophed. WBC 14.9 NA 132. O2 saturations 92% on 45% FiO2 PEEP 5. Afebrile. O2 saturations 91% on FiO2 45% PEEP 6. Continued on Zosyn and Zyvox Diflucan. Tentative trach planned 03/17/2021 CC time 31 minutes 03/16/21: Patient seen and examined in ICU. Periorbital as well as upper and lower extremity edema noted. OG feed running at 30cc/hr. Still on vent on pressure control with a rate of 24 with 45% FiO2. Patient has rectal bag. Currently she has 98% O2 sat. Currently sedated with Dexmedetomidine, Propofol, Versed, and Fentanyl. Discussed with RN. Chart reviewed. 03/17/21: Patient was seen and examined in the ICU today. Periorbital edema as wel l as abdominal and mons pubis edema was noted. Patient still on vent on pressure control with Fi02 of 45% plus 6 PEEP. Patient had rectal bag. Currently sedated on Dexmedetomidine, Propofol, Versed, and Fentanyl. Discussed with RN. Chart reviewed. 03/18/21: Patient seen and examined in ICU. On vent via trach that was placed yesterday. Vent settings are Pressure Control of 40 with FiO2 of 45% and 6 PEEP. Trach clean and dry. Orbital swelling still present. Pupils are sluggish. Patient on TPN running at 30cc/hr. Kern to bedside and rectal bag in place. Current O2 sat at 94%. Sedated on Dexmedetomidine, Propofol, Versed, and Fentanyl. Discussed with RN. Chart reviewed. 03/19/21: Patient was seen and examined in the ICU today. Currently on vent via trach on pressure control of 42, rate of 24, FiO2 of 45%, and 6 PEEP. O2 sat is at 97% while patient is being examined. Trach is clean and dry. PICC line is in place on right arm. Periorbital swelling has decreased slightly since examined yesterday. Patient is sedated on Dexmedetomidine, Propofol, Versed, and Fentanyl. Discussed with RN. Chart reviewed. 03/20/21: Patient seen and examined in the ICU. Periorbital edema is slightly decreased since yesterday. O2 sat while being examined was 93%. NG tube in place and running at 30cc/hr. Patient on vent via trach on pressure control of 40 with FiO2 of 45 and rate of 24. Sedated on Dexmedetomidine, Propofol, Versed, and Fentanyl. PICC line in place. Kern to bedside. Rectal bag present. Discussed with RN. Chart reviewed. 03/21/21: Patient was seen and examined in the ICU today. She was semi-sedated.. She was on Dexmedetomidine and Fentanyl. We are holding the Propofol. Her eyes were periodically open but she was not making meaningful eye contact or tracking. On vent via trach with pressure control of 40 and FiO2 at 45. Rate was 24. PEEP was 5. Trach was clean and dry. While being examined, her O2 sat was 94%. Rectal bag and Kern to bedside in place. NG tube in place and feeding at 30cc/hr. IV fluids still running. Levophed has been stopped. Discussed with RN. Chart reviewed. 03/22/21: Patient was seen and examined in the ICU. She was semi-sedated on Propofol and Dexmedetomidine. Her eyes were open but she did not make meaningful eye contact. Her blood pressure was elevated (198/102) while being examined and she had just been given hydralazine to lower it. There are plans to place a PEG tube tomorrow. Currently on vent via trach on pressure control of 40 with FiO2 of 45%, 5 PEEP, and a rate of 24. Current O2 sat is 98%. She is feeding through an NG tube at 30cc/hr. Rectal bag and Kern to bedside present. SCDs on patient for DVT prophylaxis. She did not do her daily dialysis today but the plan is to start back on that tomorrow. Discussed with RN. Chart reviewed. 03/23/2021: Patient remains in ICU on ventilator. FiO2 40%, PEEP 5. Trach cultures positive for [place] albicans and acinebacter ursungi. We will continue treatment with IV antibiotics and micafungin, per ID. HD per nephrology. Plans for PEG tube placement today. 30 minutes critical care time was spent reviewing charts, reviewing labs, reviewing imaging, discussion with RN. 03/24/2021: Afebrile. On vent with FiO2 45%, PEEP 5. Had attempted PEG placement per GI yesterday, but unable to locate safe path for PEG; will consider surgical opinion. Once PEG is in place she should be stable for LTAC transfer when accepted. Continue antibiotics, per ID. 30 minutes critical care time was spent reviewing charts, reviewing labs, reviewing imaging, discussion with RN. 03/25/2021: Febrile overnight with T-max 101.5 F. On vent with FiO2 45%, PEEP 5. Surgery has been consulted with tentative plans for laparoscopic versus open gastrostomy placement tomorrow. Trach cultures positive for [place] albicans and now acinebacter ursungi; will continue antibiotic management, per ID. Hemodialysis, per nephrology. Patient needing LTAC placement, but currently without benefits. station worker following for discharge planning. Critical care time 30 minutes spent reviewing charts, reviewing labs, reviewing imaging, discussion with RN. Vitals/I&O Vitals/I&O: Vital Signs Date Time Temp Pulse Resp B/P (MAP) Pulse Ox O2 Delivery O2 Flow Rate FiO2 03/25/21 06:00 87 24 151/82 (105) 98 Ventilator 03/25/21 03:00 99.3 99.3 I & O 03/24/21 03/24/21 03/25/21 15:00 23:00 07:00 Intake Total 200 ml 940 ml 1665 ml Output Total 0 ml 30 ml 60 ml Balance 200 ml 910 ml 1605 ml Physical Exam Physical Exam: GENERAL: Intubated and sedated. Trach HEENT: Normocephalic, atraumatic. Anicteric. Slight bilateral periorbital edema. Neck right IJ HDC clean LUNGS: Rhonchi. HEART: S1, S2. No murmurs. ABDOMEN: Obese, soft. Bowel sounds present. Nontender, nondistended. Abdominal and mons pubis edema noted. GENITOURINARY: Kern and fecal tube in place. EXTREMITIES: Edema present no cyanosis. CENTRAL NERVOUS SYSTEM: Intubated. PSYCHIATRIC: Unable to assess. Derm has pressure wounds wound pictures noted in chart. Generalized rash, PICC line , right IJ HDC clean General: No acute distress Heart: Regular rate, Normal S1, Normal S2, No murmurs, Gallops Lungs: Crackles, Other (On vent with trach collar in place) Abdomen: Soft Extremities: Other (ANASARCA) Skin: No rashes, No significant lesion Labs Labs: Laboratory Tests Test 03/24/21 08:45 03/24/21 13:29 03/24/21 18:21 03/24/21 23:53 O2 Saturation 91 % (92-99) Arterial Blood pH 7.43 (7.35-7.45) Arterial Blood pCO2 at Patient Temp 37 mmHg (35-46) Arterial Blood pO2 at Patient Temp 64 mmHg (75-108) Arterial Blood HCO3 24 mmol/L (21-28) Arterial Blood Base Excess 0 mmol/L (-3-3) FiO2 45% vent Glucose (Fingerstick) 72 mg/dL (70-99) 161 mg/dL (70-99) 148 mg/dL (70-99) Test 03/25/21 05:46 Sodium Level 134 mmol/L (136-145) Potassium Level 3.7 mmol/L (3.5-5.1) Chloride Level 98 mmol/L (98-107) Carbon Dioxide Level 28 mmol/L (21-32) Anion Gap 8 (6-14) Blood Urea Nitrogen 35 mg/dL (7-20) Creatinine 4.2 mg/dL (0.6-1.0) Estimated GFR (Cockcroft-Gault) 11.4 Glucose Level 177 mg/dL (70-99) Calcium Level 8.6 mg/dL (8.5-10.1) Alkaline Phosphatase 316 U/L (46-116) Assessment and Plan Assessmemt and Plan Problems Medical Problems: (1) Ketoacidosis Status: Acute Comment Review of Relevant I have reviewed the following items mazin (where applicable) has been applied. Justifications for Admission Other Justification SANDI ALCARAZ MD Mar 25, 2021 07:15
--- NOTE | 2021-03-25 08:20 | PDOC ---
Infectious Disease Note Subjective Subjective Pt intubated Patient is awake appears to follow some commands Status post tracheostomy ROS ROS No nausea vomiting diarrhea Vital Sign Vital Signs Vital Signs Date Time Temp Pulse Resp B/P (MAP) Pulse Ox O2 Delivery O2 Flow Rate FiO2 03/25/21 07:28 98 Ventilator 03/25/21 06:00 87 24 151/82 (105) 03/25/21 03:00 99.3 99.3 Physical Exam PHYSICAL EXAM GENERAL: Intubated and sedated. Trach HEENT: Normocephalic, atraumatic. Anicteric. Slight bilateral periorbital edema. Neck right IJ HDC clean LUNGS: Rhonchi. HEART: S1, S2. No murmurs. ABDOMEN: Obese, soft. Bowel sounds present. Nontender, nondistended. Abdominal and mons pubis edema noted. GENITOURINARY: Kern and fecal tube in place. EXTREMITIES: Edema present no cyanosis. CENTRAL NERVOUS SYSTEM: Intubated. PSYCHIATRIC: Unable to assess. Derm has pressure wounds wound pictures noted in chart. Generalized rash, PICC line , right IJ HDC clean Labs Lab Laboratory Tests Test 03/24/21 08:45 03/24/21 13:29 03/24/21 18:21 03/24/21 23:53 O2 Saturation 91 % (92-99) Arterial Blood pH 7.43 (7.35-7.45) Arterial Blood pCO2 at Patient Temp 37 mmHg (35-46) Arterial Blood pO2 at Patient Temp 64 mmHg (75-108) Arterial Blood HCO3 24 mmol/L (21-28) Arterial Blood Base Excess 0 mmol/L (-3-3) FiO2 45% vent Glucose (Fingerstick) 72 mg/dL (70-99) 161 mg/dL (70-99) 148 mg/dL (70-99) Test 03/25/21 05:46 Sodium Level 134 mmol/L (136-145) Potassium Level 3.7 mmol/L (3.5-5.1) Chloride Level 98 mmol/L (98-107) Carbon Dioxide Level 28 mmol/L (21-32) Anion Gap 8 (6-14) Blood Urea Nitrogen 35 mg/dL (7-20) Creatinine 4.2 mg/dL (0.6-1.0) Estimated GFR (Cockcroft-Gault) 11.4 Glucose Level 177 mg/dL (70-99) Calcium Level 8.6 mg/dL (8.5-10.1) Alkaline Phosphatase 316 U/L (46-116) Micro GRAM STAIN EVALUATION Final Final This specimen is of good quality and is acceptable for routine bacterial culture. Culture results to follow. NO ORGANISMS SEEN. SQUAMOUS EPI CELL:RARE PMN (WBCs):MODERATE Unless otherwise specified, Testing Performed by: [address] [address] For Inquires, the Physician may contact the Microbiology department at [phone] RESPIRATORY CULTURE Final Final MODERATE GRAM NEGATIVE RODS on 03/18/21 at 1120 FINAL ID= [ACINETOBACTER [email or web address].] ACINETOBACTER URSINGII. ANTIMICROBIAL SUSCEPTIBILITY Final Comment NEG SAGE 56 ACINETOBACTER URSINGII. ANTIBIOTIC RESULT INTERPRETATION AMPICILLIN/SULBACTAM <=4/2 S AMIKACIN <=16 S CEFTRIAXONE 2 S CEFTAZIDIME 16 I CEFOTAXIME 16 I CIPROFLOXACIN <=0.25 S CEFEPIME 4 S GENTAMICIN <=2 S LEVOFLOXACIN <=0.5 S RUN DATE: 03/19/21 [facility] *LIVE* PAGE 2 RUN TIME: 1120 Specimen Inquiry SPEC: [id number] PATIENT: ARIADNA BANKS [id number] (Continued) Procedure Result CONTINUED ON NEXT PAGE RUN DATE: 03/19/21 [facility] *LIVE* PAGE 3 RUN TIME: 1120 Specimen Inquiry SPEC: [id number] PATIENT: ARIADNA BANKS [id number] (Continued) - Procedure Result ANTIMICROBIAL SUSCEPTIBILITY Final (continued) MINOCYCLINE <=4 S MEROPENEM <=1 S TRIMETHOPRIM/SULFAMETHOXAZOLE <=0.5/9.5 S TOBRAMYCIN <=2 S Unless otherwise specified, Testing Performed by: [address] [address] For Inquires, the Physician may contact the Microbiology department at [phone] Objective Assessment 1. Febrile illness. Improved 2. COVID-19 infection present on date of admission, 02/06/2021. Status post remdesivir, dexamethasone. 3. Acute hypoxic respiratory failure, status post intubation. S/P Trach on 03/17 Trach cultures positive for [place] albicans and now acinebacter ursungi 4. Diabetes. 5. Diarrhea. 6. Hypertension. 7. Hyperlipidemia. 8. Anemia. 9. BOB on HD 10.UC rock albican, ua neg Plan Plan of Care Cont Meropenem DC daptomycin and micafungin Follow-up lab ,cultures, C. diff PCR negative Kern changed per team Wound care per wound treatment Offload Continue supportive care. Awaiting PEG on Tuesday Prognosis guarded. D/W BLANCA CURIEL MD Mar 25, 2021 08:20
[2021-03-25 08:24] LABS: BASE EXCESS ABG 1 mmol/L (-3-3); HCO3 ABG 24 mmol/L (21-28); PCO2 ABG 35 mmHg (35-46); PO2 ABG 104 mmHg (75-108); SAT O2 ABG 98 % (92-99)
[2021-03-25 08:32] LABS: FIO2 ABG 45% VENT
--- NOTE | 2021-03-25 09:18 | PDOC ---
DATE OF SERVICE DATE: 03/25/21 TIME: 09:15 SUBJECTIVE ROS Awake on Vent ,Status post tracheostomy OBJECTIVE Vital Signs Vital Signs Date Time Temp Pulse Resp B/P (MAP) Pulse Ox O2 Delivery O2 Flow Rate FiO2 03/25/21 08:38 98 Ventilator 03/25/21 06:00 87 24 151/82 (105) 03/25/21 03:00 99.3 99.3 I & 0 Intake and Output 03/25/21 07:00 Intake Total 2805 ml Output Total 90 ml Balance 2715 ml IV Total 628 ml Tube Feeding 1437 ml Other 740 ml Output Urine Total 90 ml Gastric Drainage Total 0 ml PHYSICAL EXAM Physical Exam GENERAL: On vent, awake HEENT: Anicteric. . Neck Trach+ LUNGS: decreased at bases HEART: S1, S2. No murmurs. ABDOMEN: Obese, soft. Bowel sounds present. GENITOURINARY: Kern and rectal tube in place. EXTREMITIES: Edema present no cyanosis. CENTRAL NERVOUS SYSTEM: awake, on vent PSYCHIATRIC: Unable to assess. DERM has pressure wounds DIAGNOSIS/ASSESSMENT Assessment & Plan BOB-ATN- anuric , requiring dialysis., currently on MWF schedule, dialysis today, discussed treatment plan with Rene Supportive care, I/O avoid nephrotoxins, Monitor for recovery Access temp HDC HypoNatremia - resolved DM 2 - Glucosuria + POA COVID 19 Pneumonia - Unvaccinated Acute Resp Failure- Intubated , CxR 03/20- Continued presence of diffuse pulmonary opacities bilaterally without interval improvement. HTN antihypertensives Anemia -avoid DOYLE 2/2 to Thrombogenic state . Surgery has been consulted with tentative plans for laparoscopic versus open gastrostomy placement tomorrow. Trach cultures positive for [place] albicans and now acinebacter ursungi; elida COMMENT/RELEVANT DATA Meds Current Medications Medications (Trade) Dose Ordered Sig/Pepe Start Time Stop Time Status Last Admin Dose Admin Acetaminophen (Tylenol Supp) 650 mg PRN Q6HRS PRN 02/08/21 01:45 02/17/21 10:45 DC Acetaminophen (Tylenol) 500 mg 1X PRN PRN 03/17/21 13:30 03/18/21 13:29 DC Albumin Human 200 ml @ 200 mls/hr 1X PRN PRN 03/21/21 14:45 03/21/21 20:44 DC 03/21/21 15:36 200 MLS/HR Albuterol Sulfate (Ventolin Hfa) 60 puff STK-MED ONCE 03/17/21 11:29 03/17/21 11:29 DC Alteplase, Recombinant (Cathflo For Central Catheter Clearance) 1 mg 1X ONCE 02/27/21 14:30 02/27/21 14:36 DC 02/27/21 15:19 1 MG Alteplase, Recombinant (Cathflo) 2 mg 1X ONCE 02/27/21 11:00 02/27/21 11:01 DC 02/27/21 11:20 2 MG Amlodipine Besylate (Norvasc) 5 mg DAILY 02/24/21 09:00 03/09/21 10:43 DC 02/27/21 09:10 5 MG Atorvastatin Calcium (Lipitor) 40 mg HS 02/08/21 21:00 03/24/21 21:49 40 MG Atropine Sulfate (ATROPINE 0.5mg SYRINGE) 0.5 mg PRN Q5MIN PRN 02/16/21 12:00 Azithromycin 250 mg/Sodium Chloride 250 ml @ 250 mls/hr Q24H 02/14/21 13:30 02/18/21 14:29 DC 02/18/21 11:51 250 MLS/HR Benzonatate (Tessalon Perle) 100 mg [id number] 02/10/21 23:30 02/17/21 10:45 DC 02/16/21 22:07 100 MG Bupivacaine HCl/ Epinephrine Bitart (Sensorcain-Epi 0.5%-1:[id number] Mpf) 30 ml STK-MED ONCE 03/17/21 10:47 03/17/21 10:47 DC Carvedilol (Coreg) 6.25 mg BIDWMEALS 02/08/21 20:30 02/23/21 15:50 DC 02/23/21 08:06 6.25 MG Cefazolin Sodium/ Dextrose (Ancef 2gm Premix) 2 gm STK-MED ONCE 03/23/21 13:00 03/24/21 11:58 DC Ceftriaxone Sodium (Rocephin) 1 gm Q24H 02/14/21 13:00 02/23/21 07:34 DC 02/22/21 12:42 1 GM Cellulose (Surgicel Fibrillar 1x2) 1 each STK-MED ONCE 03/17/21 10:47 03/17/21 10:47 DC 03/17/21 11:56 1 EACH Daptomycin 480 mg/ Sodium Chloride 50 ml @ 100 mls/hr QMWF 03/23/21 16:00 03/23/21 16:00 100 MLS/HR Dexamethasone Sodium Phosphate (Decadron) 2 mg 1X ONCE 02/27/21 09:00 02/26/21 07:15 DC Dexmedetomidine HCl 400 mcg/ Sodium Chloride 100 ml @ 0 mls/hr CONT PRN 02/27/21 09:45 03/25/21 04:48 29.8 MLS/HR Dextrose (Dextrose 50%-Water Syringe) 12.5 gm PRN Q15MIN PRN 03/01/21 13:00 03/01/21 12:55 12.5 GM Diphenhydramine HCl (Benadryl) 25 mg 1X PRN PRN 03/17/21 13:30 03/18/21 13:29 DC Docusate Sodium (Colace Solution) 100 mg BID 02/23/21 12:00 03/24/21 21:49 100 MG Docusate Sodium (Colace) 100 mg PRN DAILY PRN 02/07/21 08:45 02/23/21 10:47 DC Enalaprilat (Vasotec Inj) 0.625 mg Q6HRS 02/08/21 16:15 02/09/21 16:01 DC 02/09/21 13:42 0.625 MG Enoxaparin Sodium (Lovenox 30mg Syringe) 30 mg Q24H 03/08/21 09:00 03/12/21 15:38 DC 03/12/21 09:04 30 MG Enoxaparin Sodium (Lovenox 40mg Syringe) 40 mg BID 02/09/21 09:00 03/08/21 13:56 DC 03/08/21 08:26 40 MG Enoxaparin Sodium (Lovenox Per Pharmacy Prophylaxis Dosing) 1 each PRN DAILY PRN 02/09/21 06:45 03/12/21 15:38 DC Ephedrine Sulfate (ePHEDrine PF IN SALINE SYRINGE) 50 mg STK-MED ONCE 03/17/21 10:56 03/17/21 10:56 DC Famotidine (Pepcid Vial) 20 mg DAILY 03/10/21 09:00 03/24/21 10:43 20 MG Fentanyl Citrate (Fentanyl 2ml Vial) 50 mcg PRN Q5MIN PRN 03/23/21 06:00 03/24/21 05:59 DC Fluconazole/ Sodium Chloride 100 ml @ 100 mls/hr Q24H 03/07/21 09:00 03/17/21 08:03 DC 03/16/21 08:29 100 MLS/HR Furosemide (Lasix) 20 mg 1X ONCE 02/16/21 22:15 02/16/21 22:16 DC 02/16/21 22:18 20 MG Glycerin/ Hypromellose/ Polyethylene (Artificial Tears) 1 drop PRN Q1HR PRN 02/17/21 10:00 Guaifenesin (Robitussin Dm) 10 ml PRN Q6HRS PRN 02/10/21 23:30 02/16/21 09:06 10 ML Haloperidol Lactate (Haldol Inj) 2.5 mg 1X ONCE 02/07/21 02:30 02/07/21 03:56 DC Heparin Sodium (Porcine) (Heparin Sodium) 5,000 unit Q8HRS 03/13/21 06:00 03/25/21 06:32 5,000 UNIT Hydralazine HCl (Apresoline Inj) 10 mg PRN Q4HRS PRN 02/11/21 12:15 03/25/21 02:31 10 MG Hydromorphone HCl (Dilaudid) 0.5 mg PRN Q10MIN PRN 03/17/21 06:00 03/17/21 19:00 DC Info (PHARMACY MONITORING -- do not chart) 1 each PRN DAILY PRN 03/23/21 10:45 Insulin Glargine (Lantus Syringe) 5 unit BID 03/06/21 09:00 03/24/21 20:40 5 UNIT Insulin Human Lispro (HumaLOG) 12 units Q6HRS 02/20/21 12:00 02/28/21 15:38 DC 02/27/21 05:41 12 UNITS Insulin Human Regular 100 ml @ 10 mls/hr 1X ONCE 02/07/21 06:30 02/07/21 16:54 DC 02/07/21 09:31 6.5 MLS/HR Insulin Human Regular 100 unit/ Sodium Chloride 101 ml @ 0 mls/hr CONT PRN PRN 02/07/21 06:00 02/07/21 16:54 DC Labetalol HCl (Normodyne Iv Push) 10 mg PRN Q2HR PRN 02/08/21 00:45 03/23/21 21:45 10 MG Lactobacillus Rhamnosus (Culturelle) 1 cap BID 02/16/21 21:00 02/17/21 10:45 DC 02/16/21 22:02 1 CAP Lidocaine HCl (Buffered Lidocaine 1%) 3 ml STK-MED ONCE 03/07/21 13:25 03/07/21 13:25 DC Linezolid (Zyvox) 600 mg BID 03/05/21 09:00 03/12/21 07:00 DC 03/11/21 20:33 600 MG Linezolid/Dextrose 300 ml @ 300 mls/hr Q12HR 03/16/21 10:00 03/18/21 07:37 DC 03/17/21 21:44 300 MLS/HR Lisinopril (Prinivil) 20 mg DAILY 02/17/21 09:00 03/09/21 10:43 DC 02/27/21 09:10 20 MG Lorazepam (Ativan Inj) 0.5 mg PRN Q6HRS PRN 02/08/21 10:00 02/16/21 22:07 0.5 MG Meropenem 1 gm/ Sodium Chloride 100 ml @ 200 mls/hr Q24H 03/18/21 17:00 03/24/21 16:36 200 MLS/HR Methylprednisolone Sodium Succinate (SOLU-Medrol 125MG VIAL) 80 mg Q8HRS 02/25/21 09:00 02/26/21 07:09 DC 02/26/21 05:52 80 MG Metoclopramide HCl (Reglan Vial) 10 mg PRN Q6HRS PRN 02/08/21 00:45 02/12/21 15:51 10 MG Micafungin Sodium 100 mg/Dextrose 100 ml @ 100 mls/hr Q24H 03/21/21 18:00 03/24/21 16:36 100 MLS/HR Midazolam HCl 100 ml @ 0 mls/hr CONT PRN 02/17/21 10:00 03/20/21 17:18 5 MLS/HR Morphine Sulfate (Morphine Sulfate) 1 mg PRN Q10MIN PRN 03/17/21 06:00 03/17/21 19:00 DC Multi-Ingred Cream/Lotion/Oil/ Oint (Artificial Tears Eye Ointment) 1 reji PRN Q1HR PRN 03/17/21 17:30 03/20/21 15:55 1 REJI Multivitamins/ Minerals Therapeutic (Centrum Multivit-Mineral Liq) 5 ml DAILY 03/14/21 09:00 03/24/21 10:44 5 ML Norepinephrine Bitartrate 8 mg/ Dextrose 258 ml @ 21.711 mls/ hr CONT PRN 03/06/21 13:45 03/19/21 18:45 23.3 MLS/HR Nystatin (Nystop) 1 reji BID 03/02/21 21:00 03/24/21 21:49 1 REJI Ondansetron HCl (Zofran Odt) 4 mg 1X ONCE 02/06/21 23:30 02/06/21 23:31 DC 02/06/21 23:57 4 MG Ondansetron HCl (Zofran) 4 mg 1X ONCE 02/07/21 20:00 02/07/21 20:07 DC 02/07/21 20:06 4 MG Phenylephrine HCl (PHENYLEPHRINE in 0.9% NACL PF) 1 mg STK-MED ONCE 03/17/21 10:56 03/17/21 10:56 DC Piperacillin Sod/ Tazobactam Sod (Zosyn Per Pharmacy) 1 each PRN DAILY PRN 02/23/21 07:45 03/17/21 10:04 DC Piperacillin Sod/ Tazobactam Sod 2.25 gm/Sodium Chloride 50 ml @ 100 mls/hr Q8HRS 03/07/21 14:00 03/17/21 08:03 DC 03/17/21 05:58 100 MLS/HR Piperacillin Sod/ Tazobactam Sod 3.375 gm/Sodium Chloride 50 ml @ 100 mls/hr Q6HRS 03/14/21 18:00 Cancel Piperacillin Sod/ Tazobactam Sod 4.5 gm/Sodium Chloride 100 ml @ 200 mls/hr Q6HRS 02/23/21 08:00 03/07/21 08:18 DC 03/07/21 06:12 200 MLS/HR Potassium Chloride/Water 100 ml @ 100 mls/hr PRN Q1HR PRN 02/07/21 06:00 02/07/21 16:54 DC Potassium Chloride (Klor-Con) 40 meq 1X ONCE 02/13/21 12:00 02/13/21 12:01 DC 02/13/21 13:21 40 MEQ Prochlorperazine Edisylate (Compazine) 10 mg PRN Q6HRS PRN 02/07/21 08:45 02/12/21 10:35 10 MG Propofol 100 ml @ 0 mls/hr CONT PRN 02/17/21 10:00 03/23/21 20:30 7 MLS/HR Remdesivir 100 mg/ Sodium Chloride 230 ml @ 460 mls/hr Q24H 02/15/21 12:00 02/18/21 12:29 DC 02/18/21 11:52 460 MLS/HR Remdesivir 200 mg/ Sodium Chloride 210 ml @ 210 mls/hr 1X ONCE 02/11/21 13:00 02/12/21 11:55 DC 02/11/21 14:33 210 MLS/HR Ringer's Solution 1,000 ml @ 30 mls/hr Q24H 03/23/21 06:00 03/23/21 17:59 Cancel Rocuronium [place] (Zemuron) 50 mg STK-MED ONCE 03/17/21 11:39 03/17/21 11:39 DC Sennosides (Senna) 17.2 mg PRN BID PRN 02/07/21 08:45 02/22/21 08:29 17.2 MG Sevoflurane (Ultane) 30 ml STK-MED ONCE 03/17/21 12:20 03/17/21 12:20 DC Sodium Chloride 1,000 ml @ 400 mls/hr Q2H30M PRN 03/23/21 10:45 03/23/21 22:44 DC Sodium Chloride (Normal Saline Flush) 10 ml 1X PRN PRN 03/20/21 12:30 03/21/21 12:29 DC Succinylcholine Chloride (Anectine) 200 mg STK-MED ONCE 02/17/21 10:00 02/25/21 08:40 DC Vancomycin HCl (Vanco Per Pharmacy) 1 each PRN DAILY PRN 03/04/21 18:30 03/05/21 08:59 DC 03/04/21 19:47 1 EACH Vancomycin HCl (Vancomycin Trough Level) 1 each 1X ONCE 03/06/21 07:00 03/06/21 07:01 Cancel Vancomycin HCl 1.5 gm/Sodium Chloride 500 ml @ 250 mls/hr Q12H 03/05/21 07:30 03/05/21 08:58 DC Vancomycin HCl 1 gm/Sodium Chloride 250 ml @ 250 mls/hr Q12H 03/04/21 20:00 UNV Vancomycin HCl 2 gm/Sodium Chloride 500 ml @ 250 mls/hr 1X ONCE 03/04/21 19:00 03/04/21 20:59 DC 03/04/21 19:26 250 MLS/HR Vecuronium [place] (Norcuron Bolus) 6 mg PRN Q2HRS PRN 03/06/21 14:30 03/16/21 10:16 5 MG Vitamin A/Vitamin D (Vitamin A & D Ointment) 1 reji PRN Q1HR PRN 03/10/21 01:45 03/20/21 09:34 1 REJI Lab Laboratory Tests Test 03/24/21 13:29 03/24/21 18:21 03/24/21 23:53 03/25/21 05:46 Glucose (Fingerstick) 72 mg/dL (70-99) 161 mg/dL (70-99) 148 mg/dL (70-99) Sodium Level 134 mmol/L (136-145) Potassium Level 3.7 mmol/L (3.5-5.1) Chloride Level 98 mmol/L (98-107) Carbon Dioxide Level 28 mmol/L (21-32) Anion Gap 8 (6-14) Blood Urea Nitrogen 35 mg/dL (7-20) Creatinine 4.2 mg/dL (0.6-1.0) Estimated GFR (Cockcroft-Gault) 11.4 Glucose Level 177 mg/dL (70-99) Calcium Level 8.6 mg/dL (8.5-10.1) Alkaline Phosphatase 316 U/L (46-116) Test 03/25/21 08:00 O2 Saturation 98 % (92-99) Arterial Blood pH 7.45 (7.35-7.45) Arterial Blood pCO2 at Patient Temp 35 mmHg (35-46) Arterial Blood pO2 at Patient Temp 104 mmHg (75-108) Arterial Blood HCO3 24 mmol/L (21-28) Arterial Blood Base Excess 1 mmol/L (-3-3) FiO2 45% vent Results All relevant outside records, renal labs, imaging studies, telemetry/EKG's were reviewed. Justicifation of Admission Dx: Justifications for Admission: Justification of Admission Dx: N/A GIGI CARMEN MD Mar 25, 2021 09:18
[2021-03-25] MEDS: FAMOTIDINE 20 MG/2 ML VIAL IVP SCH (09:24)
[2021-03-25] MEDS: DOCUSATE 100 MG/10 ML SOLUTION. PO SCH ×2 (09:25→21:19)
[2021-03-25] MEDS: MULTIVITAMINS,THERAPEUTIC 5 ML ORAL LIQUID. PEG SCH (09:25)
[2021-03-25] MEDS: NYSTATIN TOPICAL POWDER 15GM BOTTLE. TP SCH ×2 (09:30→21:20)
[2021-03-25] MEDS: INSULIN GLARGINE SYRINGE. SQ SCH ×2 (09:30→21:21)
--- NOTE | 2021-03-25 09:53 | PDOC ---
Date of Service: DATE: 03/25/21 TIME: 09:47 Objective: Objective: D/w nurse, reviewed chart. Vital Signs: Vital Signs Date Time Temp Pulse Resp B/P (MAP) Pulse Ox O2 Delivery O2 Flow Rate FiO2 03/25/21 09:30 97 Ventilator 03/25/21 09:25 109 198/111 03/25/21 06:00 24 03/25/21 03:00 99.3 99.3 Labs: Laboratory Tests Test 03/24/21 13:29 03/24/21 18:21 03/24/21 23:53 03/25/21 05:46 Glucose (Fingerstick) 72 mg/dL 161 mg/dL 148 mg/dL Sodium Level 134 mmol/L Potassium Level 3.7 mmol/L Chloride Level 98 mmol/L Carbon Dioxide Level 28 mmol/L Anion Gap 8 Blood Urea Nitrogen 35 mg/dL Creatinine 4.2 mg/dL Estimated GFR (Cockcroft-Gault) 11.4 Glucose Level 177 mg/dL Calcium Level 8.6 mg/dL Alkaline Phosphatase 316 U/L Test 03/25/21 08:00 O2 Saturation 98 % Arterial Blood pH 7.45 Arterial Blood pCO2 at Patient Temp 35 mmHg Arterial Blood pO2 at Patient Temp 104 mmHg Arterial Blood HCO3 24 mmol/L Arterial Blood Base Excess 1 mmol/L FiO2 45% vent BLOOD CULTURE Preliminary NO GROWTH AFTER 3 DAYS PE: GEN: chronically ill LUNGS: trach/vent HEART: mildly tachycardic ABD: Dobhoff feeds @ 30/hr, soft NEURO/PSYCH: awake A/P: COVID-19, resp failure s/p trach, BOB, unsuccessful PEG attempt ACD, elevated Alk Phos -- Possible G-tube placement per surgery tomorrow. Justicifation of Admission Dx: Justifications for Admission: Justification of Admission Dx: N/A JANELLE MONTENEGRO Mar 25, 2021 09:53
--- NOTE | 2021-03-25 10:30 | PDOC ---
PULMONARY PROGRESS NOTES DATE: 03/25/21 TIME: 10:28 Subjective pt. remain on vent support. Slightly more awake. Tolerating pressure support vent afebrile no overnight concerns On Precedex. Off sedation Bedside PEG could not be placed Vitals Vital Signs Date Time Temp Pulse Resp B/P (MAP) Pulse Ox O2 Delivery O2 Flow Rate FiO2 03/25/21 09:30 97 Ventilator 03/25/21 09:25 109 198/111 03/25/21 06:00 24 03/25/21 03:00 99.3 99.3 General: Alert, No acute distress Lungs: Crackles, Other (On vent with trach collar in place) Cardiovascular: S1 Abdomen: Soft Skin: Warm Labs Laboratory Tests Test 03/23/21 14:29 03/23/21 23:33 03/24/21 05:35 03/24/21 05:44 Glucose (Fingerstick) 148 mg/dL (70-99) 135 mg/dL (70-99) 187 mg/dL (70-99) White Blood Count 12.2 x10^3/uL (4.0-11.0) Red Blood Count 3.35 x10^6/uL (3.50-5.40) Hemoglobin 10.0 g/dL (12.0-15.5) Hematocrit 29.8 % (36.0-47.0) Mean Corpuscular Volume 89 fL (79-100) Mean Corpuscular Hemoglobin 30 pg (25-35) Mean Corpuscular Hemoglobin Concent 34 g/dL (31-37) Red Cell Distribution Width 15.1 % (11.5-14.5) Platelet Count 244 x10^3/uL (140-400) Neutrophils (%) (Auto) 66 % (31-73) Lymphocytes (%) (Auto) 12 % (24-48) Monocytes (%) (Auto) 8 % (0-9) Eosinophils (%) (Auto) 14 % (0-3) Basophils (%) (Auto) 0 % (0-3) Neutrophils # (Auto) 8.0 x10^3/uL (1.8-7.7) Lymphocytes # (Auto) 1.4 x10^3/uL (1.0-4.8) Monocytes # (Auto) 1.0 x10^3/uL (0.0-1.1) Eosinophils # (Auto) 1.7 x10^3/uL (0.0-0.7) Basophils # (Auto) 0.0 x10^3/uL (0.0-0.2) Sodium Level 136 mmol/L (136-145) Potassium Level 3.7 mmol/L (3.5-5.1) Chloride Level 99 mmol/L (98-107) Carbon Dioxide Level 28 mmol/L (21-32) Anion Gap 9 (6-14) Blood Urea Nitrogen 25 mg/dL (7-20) Creatinine 3.1 mg/dL (0.6-1.0) Estimated GFR (Cockcroft-Gault) 16.2 Glucose Level 180 mg/dL (70-99) Calcium Level 8.7 mg/dL (8.5-10.1) Test 03/24/21 08:45 03/24/21 13:29 03/24/21 18:21 03/24/21 23:53 O2 Saturation 91 % (92-99) Arterial Blood pH 7.43 (7.35-7.45) Arterial Blood pCO2 at Patient Temp 37 mmHg (35-46) Arterial Blood pO2 at Patient Temp 64 mmHg (75-108) Arterial Blood HCO3 24 mmol/L (21-28) Arterial Blood Base Excess 0 mmol/L (-3-3) FiO2 45% vent Glucose (Fingerstick) 72 mg/dL (70-99) 161 mg/dL (70-99) 148 mg/dL (70-99) Test 03/25/21 05:46 03/25/21 08:00 Sodium Level 134 mmol/L (136-145) Potassium Level 3.7 mmol/L (3.5-5.1) Chloride Level 98 mmol/L (98-107) Carbon Dioxide Level 28 mmol/L (21-32) Anion Gap 8 (6-14) Blood Urea Nitrogen 35 mg/dL (7-20) Creatinine 4.2 mg/dL (0.6-1.0) Estimated GFR (Cockcroft-Gault) 11.4 Glucose Level 177 mg/dL (70-99) Calcium Level 8.6 mg/dL (8.5-10.1) Alkaline Phosphatase 316 U/L (46-116) O2 Saturation 98 % (92-99) Arterial Blood pH 7.45 (7.35-7.45) Arterial Blood pCO2 at Patient Temp 35 mmHg (35-46) Arterial Blood pO2 at Patient Temp 104 mmHg (75-108) Arterial Blood HCO3 24 mmol/L (21-28) Arterial Blood Base Excess 1 mmol/L (-3-3) FiO2 45% vent Laboratory Tests Test 03/24/21 13:29 03/24/21 18:21 03/24/21 23:53 03/25/21 05:46 Glucose (Fingerstick) 72 mg/dL (70-99) 161 mg/dL (70-99) 148 mg/dL (70-99) Sodium Level 134 mmol/L (136-145) Potassium Level 3.7 mmol/L (3.5-5.1) Chloride Level 98 mmol/L (98-107) Carbon Dioxide Level 28 mmol/L (21-32) Anion Gap 8 (6-14) Blood Urea Nitrogen 35 mg/dL (7-20) Creatinine 4.2 mg/dL (0.6-1.0) Estimated GFR (Cockcroft-Gault) 11.4 Glucose Level 177 mg/dL (70-99) Calcium Level 8.6 mg/dL (8.5-10.1) Alkaline Phosphatase 316 U/L (46-116) Test 03/25/21 08:00 O2 Saturation 98 % (92-99) Arterial Blood pH 7.45 (7.35-7.45) Arterial Blood pCO2 at Patient Temp 35 mmHg (35-46) Arterial Blood pO2 at Patient Temp 104 mmHg (75-108) Arterial Blood HCO3 24 mmol/L (21-28) Arterial Blood Base Excess 1 mmol/L (-3-3) FiO2 45% vent Medications Active Scripts Medications Dose Route/Sig Max Daily Dose Days Date Category Novolog Flexpen (Insulin Aspart) 100 Unit/1 Ml Insuln.pen 3-7 SQ TIDACHC 02/07/21 Reported Lisinopril 5 Mg Tablet 1 Tab PO DAILY 02/07/21 Reported Lantus Solostar (Insulin Glargine,Hum.rec.anlog) 100 Unit/1 Ml Insuln.pen 5 Unit SQ QHS 04/09/15 Reported Atorvastatin Calcium 40 Mg Tablet 40 Mg PO HS 04/09/15 Reported Comments 03/20/21 CXR IMPRESSION: Continued presence of diffuse pulmonary opacities bilaterally without interval improvement. Impression . IMPRESSION: 1. Acute hypoxic respiratory failure secondary to COVID-19 viral pneumonia/acute lung injury and early acute respiratory distress syndrome. S/P intubation 02/17/21 2. Nonsmoker. 3. Abnormal chest x-ray consistent with COVID-19 viral pneumonia.--- 4. Diabetic ketoacidosis--resolved 5. Underlying obesity contributing to hypoxia as well. 6. BOB worsening hemodialysis started 03/07 7. Fever, per ID--resolved 8. Abnormal chest x-ray with diffuse interstitial infiltrates compatible with viral pneumonia 9. [place] in the sputum is a contamination 10. Septic shock--resolved Plan . Updated 03/25/21 Continue daily pressure support trials. Currently on pressure support of 16. We will wean the pressure support down to 10. Likely trial of trach shield in the next 24 hours Surgery consulted for surgical PEG. Currently on Precedex drip. Follow CXR/ABG Follow nephrology recs Monitor HBG , follow GI recs Follow ID recs for ABX DVT/GI PPX D/W RN and RT Updated 03/24/21 Continue current vent support, currently on 40% FiO2 and volume control mechanical ventilation. We will try CPAP trials. Surgery consulted for surgical PEG. Currently on Precedex drip. Follow CXR/ABG Follow nephrology recs Monitor HBG , follow GI recs Follow ID recs for ABX DVT/GI PPX D/W RN and RT Updated 03/23/21 Continue current vent support, currently on 45% in PC mode. We will ask respiratory to switch her to volume control mode. Will monitor peak airway pressures. Currently on Precedex drip. Follow CXR/ABG Follow nephrology recs Monitor HBG , follow GI recs Follow ID recs for ABX DVT/GI PPX D/W RN and RT PEG tube is a scheduled for today and after that she should be stable for LTAC transfer once accepted Updated 03/22/21 Continue current vent support, currently on 45% in PC mode. We will ask respiratory to switch her to volume control mode in a.m. Did not tolerated coming off sedation well with increasing blood pressure. Currently on low-dose fentanyl and Precedex drip. Follow CXR/ABG Follow nephrology recs Monitor HBG , follow GI recs Follow ID recs for ABX DVT/GI PPX D/W RN and RT PEG tube is a scheduled for tomorrow and after that she should be stable for LTAC transfer Updated 03/21/21 Continue current vent support, currently on 45% in PC mode Discontinue sedation and assess mental status. Once more awake CPAP trial. Follow CXR/ABG Follow nephrology recs Monitor HBG , follow GI recs Follow ID recs for ABX DVT/GI PPX D/W RN and RT Updated 03/20/21 Continue current vent support, currently on 45% in PC mode will reduce to 40% and change to 1:2 IE ratio Reduce sedation and assess mental status Follow CXR/ABG Follow nephrology recs Monitor HBG , follow GI recs Follow ID recs for ABX DVT/GI PPX D/W RN and RT Updated 03/[address] Whitley On exam she appears to be less puffy Finish course of remdesivir and dexamethasone Hemodialysis DVT GI prophylaxis Off pressors Chest x-ray reviewed, no significant change, 03/18 updated 03/18 Continue current mechanical support Hemodialysis per Dr. Sims Nutritional support DVT GI prophylaxis EMILY POSADA MD Mar 25, 2021 10:30
[2021-03-25] MEDS ORDERED: DIALYSIS PATIENT. MC PRN ×2 (12:30)
[2021-03-25] MEDS ORDERED: 0.9 % SODIUM CHLORIDE 10 ML DISP.SYRIN. IV PRN ×2 (12:30)
[2021-03-25] MEDS ORDERED: ALBUMIN HUMAN 25% 200 ML IV PRN (12:30)
[2021-03-25] MEDS ORDERED: IV NORMAL SALINE 1000ML BAG 1,000 ML IV PRN ×2 (12:30)
[2021-03-25] MEDS: fentaNYL HIGH DOSE PCA 55 ML IV PRN (13:17)
--- NOTE | 2021-03-25 16:04 | NUR ---
SS following up with discharge planning. SS reviewed pt chart and discussed with pt RN. Pt is currently on the vent at 45%. COVID19 recovered. Trach in place. Pt on Sub Q Heparin, Fentanyl, and Precedex. Pt on IV Daptomycin and IV Meropenem. Dobhoff in place. Self pay. Med Assist following. Pt currently needing LTACH placement at this time, but currently has no benefits. SS will continue to follow for discharge planning.
[2021-03-25] MEDS: MEROPENEM 1 GM in IV NORMAL SALINE 100ML 100 ML IV SCH (16:35)
[2021-03-25] MEDS: DAPTOmycin (GENERIC) IVPB 480 MG in IV NORMAL SALINE 50ML 50 ML IV SCH (19:52)
[2021-03-25] MEDS: ATORVASTATIN CALCIUM 40 MG TABLET. PO SCH (21:19)
[2021-03-26] VITALS (24 sets, daily range): BP systolic 106–200; BP diastolic 57–104
[2021-03-26] MEDS: DEXMEDETOMIDINE 400 MCG in IV NORMAL SALINE 100ML 96 ML IV PRN ×6 (00:31→22:08)
[2021-03-26] MEDS: LABETALOL 20 MG/4 ML DISP.SYRIN. IVP PRN ×3 (00:33→21:14)
[2021-03-26] MEDS: INSULIN LISPRO 300 UNITS/3 ML VIAL. SQ SCH ×4 (06:00→18:00)
[2021-03-26] MEDS: HEPARIN for SUB-Q USE 5,000 UNIT/ML VIAL. SQ SCH ×3 (06:24→21:12)
[2021-03-26 07:20] LABS: BASE EXCESS ABG 3 mmol/L (-3-3); HCO3 ABG 26 mmol/L (21-28); PCO2 ABG 34 mmHg (35-46); PO2 ABG 60 mmHg (75-108); SAT O2 ABG 91 % (92-99)
--- NOTE | 2021-03-26 07:59 | PDOC ---
Infectious Disease Note Subjective Subjective Pt intubated Patient is awake appears to follow some commands Status post tracheostomy ROS ROS No nausea vomiting diarrhea. Fever 100.5 Vital Sign Vital Signs Vital Signs Date Time Temp Pulse Resp B/P (MAP) Pulse Ox O2 Delivery O2 Flow Rate FiO2 03/26/21 07:57 95 Ventilator 03/26/21 07:00 91 24 194/94 (127) 03/26/21 04:00 99.8 99.8 03/25/21 13:47 90.0 Physical Exam PHYSICAL EXAM GENERAL: Intubated and sedated. Trach HEENT: Normocephalic, atraumatic. Anicteric. Slight bilateral periorbital edema. Neck right IJ HDC clean LUNGS: Rhonchi. HEART: S1, S2. No murmurs. ABDOMEN: Obese, soft. Bowel sounds present. Nontender, nondistended. Abdominal and mons pubis edema noted. GENITOURINARY: Kern and fecal tube in place. EXTREMITIES: Edema present no cyanosis. CENTRAL NERVOUS SYSTEM: Intubated. PSYCHIATRIC: Unable to assess. Derm has pressure wounds wound pictures noted in chart. Generalized rash, PICC line , right IJ HDC clean Labs Lab Laboratory Tests Test 03/25/21 08:00 03/25/21 16:38 03/26/21 00:27 03/26/21 06:21 O2 Saturation 98 % (92-99) Arterial Blood pH 7.45 (7.35-7.45) Arterial Blood pCO2 at Patient Temp 35 mmHg (35-46) Arterial Blood pO2 at Patient Temp 104 mmHg (75-108) Arterial Blood HCO3 24 mmol/L (21-28) Arterial Blood Base Excess 1 mmol/L (-3-3) FiO2 45% vent Glucose (Fingerstick) 122 mg/dL (70-99) 145 mg/dL (70-99) 153 mg/dL (70-99) Test 03/26/21 07:15 O2 Saturation 91 % (92-99) Arterial Blood pH 7.50 (7.35-7.45) Arterial Blood pCO2 at Patient Temp 34 mmHg (35-46) Arterial Blood pO2 at Patient Temp 60 mmHg (75-108) Arterial Blood HCO3 26 mmol/L (21-28) Arterial Blood Base Excess 3 mmol/L (-3-3) FiO2 45% vent Micro GRAM STAIN EVALUATION Final Final This specimen is of good quality and is acceptable for routine bacterial culture. Culture results to follow. NO ORGANISMS SEEN. SQUAMOUS EPI CELL:RARE PMN (WBCs):MODERATE Unless otherwise specified, Testing Performed by: [address] [id number] For Inquires, the Physician may contact the Microbiology department at [phone] RESPIRATORY CULTURE Final Final MODERATE GRAM NEGATIVE RODS on 03/18/21 at 1120 FINAL ID= [ACINETOBACTER [email or web address].] ACINETOBACTER URSINGII. ANTIMICROBIAL SUSCEPTIBILITY Final Comment NEG SAGE 56 ACINETOBACTER URSINGII. ANTIBIOTIC RESULT INTERPRETATION AMPICILLIN/SULBACTAM <=4/2 S AMIKACIN <=16 S CEFTRIAXONE 2 S CEFTAZIDIME 16 I CEFOTAXIME 16 I CIPROFLOXACIN <=0.25 S CEFEPIME 4 S GENTAMICIN <=2 S LEVOFLOXACIN <=0.5 S ---- -------- RUN DATE: 03/19/21 [facility] *LIVE* PAGE 2 RUN TIME: 1120 Specimen Inquiry SPEC: [id number] PATIENT: ARIADNA BANKS [id number] (Continued) Procedure Result CONTINUED ON NEXT PAGE RUN DATE: 03/19/21 [facility] *LIVE* PAGE 3 RUN TIME: 1120 Specimen Inquiry ----- ------- SPEC: [id number] PATIENT: ARIADNA BANKS [id number] (Continued) Procedure Result ANTIMICROBIAL SUSCEPTIBILITY Final (continued) MINOCYCLINE <=4 S MEROPENEM <=1 S TRIMETHOPRIM/SULFAMETHOXAZOLE <=0.5/9.5 S TOBRAMYCIN <=2 S Unless otherwise specified, Testing Performed by: [address] [address] For Inquires, the Physician may contact the Microbiology department at [phone] Culture negative Objective Assessment 1. Febrile illness. Improved 2. COVID-19 infection present on date of admission, 02/06/2021. Status post remdesivir, dexamethasone. 3. Acute hypoxic respiratory failure, status post intubation. S/P Trach on 03/17 Trach cultures positive for [place] albicans and now acinebacter ursungi 4. Diabetes. 5. Diarrhea. 6. Hypertension. 7. Hyperlipidemia. 8. Anemia. 9. BOB on HD 10.JAYSON [place] romana, ua neg Plan Plan of Care Cont Meropenem Follow-up lab ,cultures, C. diff PCR negative Kern changed per team Wound care per wound treatment Offload Continue supportive care. Awaiting PEG on Tuesday Prognosis guarded. D/W BLANCA CURIEL MD Mar 26, 2021 07:59
[2021-03-26] MEDS: FAMOTIDINE 20 MG/2 ML VIAL IVP SCH (08:17)
[2021-03-26] MEDS: hydrALAZINE 20 MG/ML VIAL. IVP PRN ×4 (08:19→22:50)
--- NOTE | 2021-03-26 09:14 | PDOC ---
DATE OF SERVICE DATE: 03/26/21 TIME: 09:09 SUBJECTIVE ROS Awake on Vent ,Status post tracheostomy OBJECTIVE Vital Signs Vital Signs Date Time Temp Pulse Resp B/P (MAP) Pulse Ox O2 Delivery O2 Flow Rate FiO2 03/26/21 08:26 95 Ventilator 03/26/21 08:19 100 179/87 03/26/21 08:00 100.5 34 100.5 03/25/21 13:47 90.0 I & 0 Intake and Output 03/26/21 07:00 Intake Total 2232.6 ml Output Total 130 ml Balance 2102.6 ml Intake Oral 0 ml IV Total 831.6 ml Tube Feeding 1021 ml Other 380 ml Output Urine Total 130 ml Gastric Drainage Total 0 ml PHYSICAL EXAM Physical Exam GENERAL: On vent, awake HEENT: Anicteric. . Neck Trach+ LUNGS: decreased at bases HEART: S1, S2. No murmurs. ABDOMEN: Obese, soft. Bowel sounds present. GENITOURINARY: Kern and rectal tube in place. EXTREMITIES: Edema present no cyanosis. CENTRAL NERVOUS SYSTEM: awake, on vent PSYCHIATRIC: Unable to assess. DERM has pressure wounds DIAGNOSIS/ASSESSMENT Assessment & Plan BOB-ATN- anuric , requiring dialysis., currently on MWF schedule, currently no emergent indocation for dialysis today Supportive care, I/O avoid nephrotoxins, Monitor for recovery Access temp HDC HypoNatremia - mild DM 2 - Glucosuria + POA COVID 19 Pneumonia - Unvaccinated Acute Resp Failure- Intubated , CxR 03/20- Continued presence of diffuse pulmonary opacities bilaterally without interval improvement. HTN antihypertensives Anemia -avoid DOYLE 2/2 to Thrombogenic state Nutrition on TF COMMENT/RELEVANT DATA Meds Current Medications Medications (Trade) Dose Ordered Sig/Pepe Start Time Stop Time Status Last Admin Dose Admin Acetaminophen (Tylenol Supp) 650 mg PRN Q6HRS PRN 02/08/21 01:45 02/17/21 10:45 DC Acetaminophen (Tylenol) 500 mg 1X PRN PRN 03/17/21 13:30 03/18/21 13:29 DC Albumin Human 200 ml @ 200 mls/hr 1X PRN PRN 03/25/21 12:30 03/25/21 18:29 DC Albuterol Sulfate (Ventolin Hfa) 60 puff STK-MED ONCE 03/17/21 11:29 03/17/21 11:29 DC Alteplase, Recombinant (Cathflo For Central Catheter Clearance) 1 mg 1X ONCE 02/27/21 14:30 02/27/21 14:36 DC 02/27/21 15:19 1 MG Alteplase, Recombinant (Cathflo) 2 mg 1X ONCE 02/27/21 11:00 02/27/21 11:01 DC 02/27/21 11:20 2 MG Amlodipine Besylate (Norvasc) 5 mg DAILY 02/24/21 09:00 03/09/21 10:43 DC 02/27/21 09:10 5 MG Atorvastatin Calcium (Lipitor) 40 mg HS 02/08/21 21:00 03/25/21 21:19 40 MG Atropine Sulfate (ATROPINE 0.5mg SYRINGE) 0.5 mg PRN Q5MIN PRN 02/16/21 12:00 Azithromycin 250 mg/Sodium Chloride 250 ml @ 250 mls/hr Q24H 02/14/21 13:30 02/18/21 14:29 DC 02/18/21 11:51 250 MLS/HR Benzonatate (Tessalon Perle) 100 mg [id number] 02/10/21 23:30 02/17/21 10:45 DC 02/16/21 22:07 100 MG Bupivacaine HCl/ Epinephrine Bitart (Sensorcain-Epi 0.5%-1:[id number] Mpf) 30 ml STK-MED ONCE 03/17/21 10:47 03/17/21 10:47 DC Carvedilol (Coreg) 6.25 mg BIDWMEALS 02/08/21 20:30 02/23/21 15:50 DC 02/23/21 08:06 6.25 MG Cefazolin Sodium/ Dextrose (Ancef 2gm Premix) 2 gm STK-MED ONCE 03/23/21 13:00 03/24/21 11:58 DC Ceftriaxone Sodium (Rocephin) 1 gm Q24H 02/14/21 13:00 02/23/21 07:34 DC 02/22/21 12:42 1 GM Cellulose (Surgicel Fibrillar 1x2) 1 each STK-MED ONCE 03/17/21 10:47 03/17/21 10:47 DC 03/17/21 11:56 1 EACH Daptomycin 480 mg/ Sodium Chloride 50 ml @ 100 mls/hr QMWF 03/23/21 16:00 03/25/21 19:52 100 MLS/HR Dexamethasone Sodium Phosphate (Decadron) 2 mg 1X ONCE 02/27/21 09:00 02/26/21 07:15 DC Dexmedetomidine HCl 400 mcg/ Sodium Chloride 100 ml @ 0 mls/hr CONT PRN 02/27/21 09:45 03/26/21 08:19 23.8 MLS/HR Dextrose (Dextrose 50%-Water Syringe) 12.5 gm PRN Q15MIN PRN 03/01/21 13:00 03/01/21 12:55 12.5 GM Diphenhydramine HCl (Benadryl) 25 mg 1X PRN PRN 03/17/21 13:30 03/18/21 13:29 DC Docusate Sodium (Colace Solution) 100 mg BID 02/23/21 12:00 03/25/21 21:19 100 MG Docusate Sodium (Colace) 100 mg PRN DAILY PRN 02/07/21 08:45 02/23/21 10:47 DC Enalaprilat (Vasotec Inj) 0.625 mg Q6HRS 02/08/21 16:15 02/09/21 16:01 DC 02/09/21 13:42 0.625 MG Enoxaparin Sodium (Lovenox 30mg Syringe) 30 mg Q24H 03/08/21 09:00 03/12/21 15:38 DC 03/12/21 09:04 30 MG Enoxaparin Sodium (Lovenox 40mg Syringe) 40 mg BID 02/09/21 09:00 03/08/21 13:56 DC 03/08/21 08:26 40 MG Enoxaparin Sodium (Lovenox Per Pharmacy Prophylaxis Dosing) 1 each PRN DAILY PRN 02/09/21 06:45 03/12/21 15:38 DC Ephedrine Sulfate (ePHEDrine PF IN SALINE SYRINGE) 50 mg STK-MED ONCE 03/17/21 10:56 03/17/21 10:56 DC Famotidine (Pepcid Vial) 20 mg DAILY 03/10/21 09:00 03/26/21 08:17 20 MG Fentanyl Citrate (Fentanyl 2ml Vial) 50 mcg PRN Q5MIN PRN 03/23/21 06:00 03/24/21 05:59 DC Fluconazole/ Sodium Chloride 100 ml @ 100 mls/hr Q24H 03/07/21 09:00 03/17/21 08:03 DC 03/16/21 08:29 100 MLS/HR Furosemide (Lasix) 20 mg 1X ONCE 02/16/21 22:15 02/16/21 22:16 DC 02/16/21 22:18 20 MG Glycerin/ Hypromellose/ Polyethylene (Artificial Tears) 1 drop PRN Q1HR PRN 02/17/21 10:00 Guaifenesin (Robitussin Dm) 10 ml PRN Q6HRS PRN 02/10/21 23:30 02/16/21 09:06 10 ML Haloperidol Lactate (Haldol Inj) 2.5 mg 1X ONCE 02/07/21 02:30 02/07/21 03:56 DC Heparin Sodium (Porcine) (Heparin Sodium) 5,000 unit Q8HRS 03/13/21 06:00 03/26/21 06:24 5,000 UNIT Hydralazine HCl (Apresoline Inj) 10 mg PRN Q4HRS PRN 02/11/21 12:15 03/26/21 08:19 10 MG Hydromorphone HCl (Dilaudid) 0.5 mg PRN Q10MIN PRN 03/17/21 06:00 03/17/21 19:00 DC Info (PHARMACY MONITORING -- do not chart) 1 each PRN DAILY PRN 03/25/21 12:30 Insulin Glargine (Lantus Syringe) 5 unit BID 03/06/21 09:00 03/25/21 21:21 5 UNIT Insulin Human Lispro (HumaLOG) 12 units Q6HRS 02/20/21 12:00 02/28/21 15:38 DC 02/27/21 05:41 12 UNITS Insulin Human Regular 100 ml @ 10 mls/hr 1X ONCE 02/07/21 06:30 02/07/21 16:54 DC 02/07/21 09:31 6.5 MLS/HR Insulin Human Regular 100 unit/ Sodium Chloride 101 ml @ 0 mls/hr CONT PRN PRN 02/07/21 06:00 02/07/21 16:54 DC Labetalol HCl (Normodyne Iv Push) 10 mg PRN Q2HR PRN 02/08/21 00:45 03/26/21 00:33 10 MG Lactobacillus Rhamnosus (Culturelle) 1 cap BID 02/16/21 21:00 02/17/21 10:45 DC 02/16/21 22:02 1 CAP Lidocaine HCl (Buffered Lidocaine 1%) 3 ml STK-MED ONCE 03/07/21 13:25 03/07/21 13:25 DC Linezolid (Zyvox) 600 mg BID 03/05/21 09:00 03/12/21 07:00 DC 03/11/21 20:33 600 MG Linezolid/Dextrose 300 ml @ 300 mls/hr Q12HR 03/16/21 10:00 03/18/21 07:37 DC 03/17/21 21:44 300 MLS/HR Lisinopril (Prinivil) 20 mg DAILY 02/17/21 09:00 03/09/21 10:43 DC 02/27/21 09:10 20 MG Lorazepam (Ativan Inj) 0.5 mg PRN Q6HRS PRN 02/08/21 10:00 02/16/21 22:07 0.5 MG Meropenem 1 gm/ Sodium Chloride 100 ml @ 200 mls/hr Q24H 03/18/21 17:00 03/25/21 16:35 200 MLS/HR Methylprednisolone Sodium Succinate (SOLU-Medrol 125MG VIAL) 80 mg Q8HRS 02/25/21 09:00 02/26/21 07:09 DC 02/26/21 05:52 80 MG Metoclopramide HCl (Reglan Vial) 10 mg PRN Q6HRS PRN 02/08/21 00:45 02/12/21 15:51 10 MG Micafungin Sodium 100 mg/Dextrose 100 ml @ 100 mls/hr Q24H 03/21/21 18:00 03/25/21 10:27 DC 03/24/21 16:36 100 MLS/HR Midazolam HCl 100 ml @ 0 mls/hr CONT PRN 02/17/21 10:00 03/20/21 17:18 5 MLS/HR Morphine Sulfate (Morphine Sulfate) 1 mg PRN Q10MIN PRN 03/17/21 06:00 03/17/21 19:00 DC Multi-Ingred Cream/Lotion/Oil/ Oint (Artificial Tears Eye Ointment) 1 reji PRN Q1HR PRN 03/17/21 17:30 03/20/21 15:55 1 REJI Multivitamins/ Minerals Therapeutic (Centrum Multivit-Mineral Liq) 5 ml DAILY 03/14/21 09:00 03/25/21 09:25 5 ML Norepinephrine Bitartrate 8 mg/ Dextrose 258 ml @ 21.711 mls/ hr CONT PRN 03/06/21 13:45 03/19/21 18:45 23.3 MLS/HR Nystatin (Nystop) 1 reji BID 03/02/21 21:00 03/25/21 21:20 1 REJI Ondansetron HCl (Zofran Odt) 4 mg 1X ONCE 02/06/21 23:30 02/06/21 23:31 DC 02/06/21 23:57 4 MG Ondansetron HCl (Zofran) 4 mg 1X ONCE 02/07/21 20:00 02/07/21 20:07 DC 02/07/21 20:06 4 MG Phenylephrine HCl (PHENYLEPHRINE in 0.9% NACL PF) 1 mg STK-MED ONCE 03/17/21 10:56 03/17/21 10:56 DC Piperacillin Sod/ Tazobactam Sod (Zosyn Per Pharmacy) 1 each PRN DAILY PRN 02/23/21 07:45 03/17/21 10:04 DC Piperacillin Sod/ Tazobactam Sod 2.25 gm/Sodium Chloride 50 ml @ 100 mls/hr Q8HRS 03/07/21 14:00 03/17/21 08:03 DC 03/17/21 05:58 100 MLS/HR Piperacillin Sod/ Tazobactam Sod 3.375 gm/Sodium Chloride 50 ml @ 100 mls/hr Q6HRS 03/14/21 18:00 Cancel Piperacillin Sod/ Tazobactam Sod 4.5 gm/Sodium Chloride 100 ml @ 200 mls/hr Q6HRS 02/23/21 08:00 03/07/21 08:18 DC 03/07/21 06:12 200 MLS/HR Potassium Chloride/Water 100 ml @ 100 mls/hr PRN Q1HR PRN 02/07/21 06:00 02/07/21 16:54 DC Potassium Chloride (Klor-Con) 40 meq 1X ONCE 02/13/21 12:00 02/13/21 12:01 DC 02/13/21 13:21 40 MEQ Prochlorperazine Edisylate (Compazine) 10 mg PRN Q6HRS PRN 02/07/21 08:45 02/12/21 10:35 10 MG Propofol 100 ml @ 0 mls/hr CONT PRN 02/17/21 10:00 03/23/21 20:30 7 MLS/HR Remdesivir 100 mg/ Sodium Chloride 230 ml @ 460 mls/hr Q24H 02/15/21 12:00 02/18/21 12:29 DC 02/18/21 11:52 460 MLS/HR Remdesivir 200 mg/ Sodium Chloride 210 ml @ 210 mls/hr 1X ONCE 02/11/21 13:00 02/12/21 11:55 DC 02/11/21 14:33 210 MLS/HR Ringer's Solution 1,000 ml @ 30 mls/hr Q24H 03/23/21 06:00 03/23/21 17:59 Cancel Rocuronium [place] (Zemuron) 50 mg STK-MED ONCE 03/17/21 11:39 03/17/21 11:39 DC Sennosides (Senna) 17.2 mg PRN BID PRN 02/07/21 08:45 02/22/21 08:29 17.2 MG Sevoflurane (Ultane) 30 ml STK-MED ONCE 03/17/21 12:20 03/17/21 12:20 DC Sodium Chloride 1,000 ml @ 400 mls/hr Q2H30M PRN 03/25/21 12:30 03/26/21 00:29 DC Sodium Chloride (Normal Saline Flush) 10 ml 1X PRN PRN 03/25/21 12:30 03/26/21 12:29 Succinylcholine Chloride (Anectine) 200 mg STK-MED ONCE 02/17/21 10:00 02/25/21 08:40 DC Vancomycin HCl (Vanco Per Pharmacy) 1 each PRN DAILY PRN 03/04/21 18:30 03/05/21 08:59 DC 03/04/21 19:47 1 EACH Vancomycin HCl (Vancomycin Trough Level) 1 each 1X ONCE 03/06/21 07:00 03/06/21 07:01 Cancel Vancomycin HCl 1.5 gm/Sodium Chloride 500 ml @ 250 mls/hr Q12H 03/05/21 07:30 03/05/21 08:58 DC Vancomycin HCl 1 gm/Sodium Chloride 250 ml @ 250 mls/hr Q12H 03/04/21 20:00 UNV Vancomycin HCl 2 gm/Sodium Chloride 500 ml @ 250 mls/hr 1X ONCE 03/04/21 19:00 03/04/21 20:59 DC 03/04/21 19:26 250 MLS/HR Vecuronium [place] (Norcuron Bolus) 6 mg PRN Q2HRS PRN 03/06/21 14:30 03/16/21 10:16 5 MG Vitamin A/Vitamin D (Vitamin A & D Ointment) 1 reji PRN Q1HR PRN 03/10/21 01:45 03/20/21 09:34 1 REJI Lab Laboratory Tests Test 03/25/21 16:38 03/26/21 00:27 03/26/21 06:21 03/26/21 07:15 Glucose (Fingerstick) 122 mg/dL (70-99) 145 mg/dL (70-99) 153 mg/dL (70-99) O2 Saturation 91 % (92-99) Arterial Blood pH 7.50 (7.35-7.45) Arterial Blood pCO2 at Patient Temp 34 mmHg (35-46) Arterial Blood pO2 at Patient Temp 60 mmHg (75-108) Arterial Blood HCO3 26 mmol/L (21-28) Arterial Blood Base Excess 3 mmol/L (-3-3) FiO2 45% vent Results All relevant outside records, renal labs, imaging studies, telemetry/EKG's were reviewed. Justicifation of Admission Dx: Justifications for Admission: Justification of Admission Dx: N/A GIGI CARMEN MD Mar 26, 2021 09:14
--- NOTE | 2021-03-26 09:26 | PDOC ---
SURGICAL PROGRESS NOTE DATE: 03/26/21 TIME: 09:24 Subjective Pt intubated, non responsive Vital Signs Vital Signs Date Time Temp Pulse Resp B/P (MAP) Pulse Ox O2 Delivery O2 Flow Rate FiO2 03/26/21 09:08 97 Ventilator 03/26/21 09:00 88 26 106/82 (90) 03/26/21 08:00 100.5 100.5 03/25/21 13:47 90.0 I&O Intake and Output 03/26/21 07:00 Intake Total 2232.6 ml Output Total 130 ml Balance 2102.6 ml Intake Oral 0 ml IV Total 831.6 ml Tube Feeding 1021 ml Other 380 ml Output Urine Total 130 ml Gastric Drainage Total 0 ml General: No acute distress HEENT: Other (trach intact) Abdomen: Soft, No tenderness Labs Laboratory Tests Test 03/24/21 13:29 03/24/21 18:21 03/24/21 23:53 03/25/21 05:46 Glucose (Fingerstick) 72 mg/dL (70-99) 161 mg/dL (70-99) 148 mg/dL (70-99) Sodium Level 134 mmol/L (136-145) Potassium Level 3.7 mmol/L (3.5-5.1) Chloride Level 98 mmol/L (98-107) Carbon Dioxide Level 28 mmol/L (21-32) Anion Gap 8 (6-14) Blood Urea Nitrogen 35 mg/dL (7-20) Creatinine 4.2 mg/dL (0.6-1.0) Estimated GFR (Cockcroft-Gault) 11.4 Glucose Level 177 mg/dL (70-99) Calcium Level 8.6 mg/dL (8.5-10.1) Alkaline Phosphatase 316 U/L (46-116) Test 03/25/21 08:00 03/25/21 16:38 03/26/21 00:27 03/26/21 06:21 O2 Saturation 98 % (92-99) Arterial Blood pH 7.45 (7.35-7.45) Arterial Blood pCO2 at Patient Temp 35 mmHg (35-46) Arterial Blood pO2 at Patient Temp 104 mmHg (75-108) Arterial Blood HCO3 24 mmol/L (21-28) Arterial Blood Base Excess 1 mmol/L (-3-3) FiO2 45% vent Glucose (Fingerstick) 122 mg/dL (70-99) 145 mg/dL (70-99) 153 mg/dL (70-99) Test 03/26/21 07:15 O2 Saturation 91 % (92-99) Arterial Blood pH 7.50 (7.35-7.45) Arterial Blood pCO2 at Patient Temp 34 mmHg (35-46) Arterial Blood pO2 at Patient Temp 60 mmHg (75-108) Arterial Blood HCO3 26 mmol/L (21-28) Arterial Blood Base Excess 3 mmol/L (-3-3) FiO2 45% vent Laboratory Tests Test 03/25/21 16:38 03/26/21 00:27 03/26/21 06:21 03/26/21 07:15 Glucose (Fingerstick) 122 mg/dL (70-99) 145 mg/dL (70-99) 153 mg/dL (70-99) O2 Saturation 91 % (92-99) Arterial Blood pH 7.50 (7.35-7.45) Arterial Blood pCO2 at Patient Temp 34 mmHg (35-46) Arterial Blood pO2 at Patient Temp 60 mmHg (75-108) Arterial Blood HCO3 26 mmol/L (21-28) Arterial Blood Base Excess 3 mmol/L (-3-3) FiO2 45% vent Problem List Problems Medical Problems: (1) Ketoacidosis Status: Acute Assessment/Plan respiratory failure will plan laparoscopic versus open g tube 03/27 at 1200. Justicifation of Admission Dx: Justifications for Admission: Justification of Admission Dx: N/A DANIEL ACHARYA MD Mar 26, 2021 09:25
[2021-03-26] MEDS: DOCUSATE 100 MG/10 ML SOLUTION. PO SCH ×2 (09:32→21:10)
[2021-03-26] MEDS: MULTIVITAMINS,THERAPEUTIC 5 ML ORAL LIQUID. PEG SCH (09:32)
[2021-03-26] MEDS: NYSTATIN TOPICAL POWDER 15GM BOTTLE. TP SCH ×2 (09:32→21:13)
[2021-03-26] MEDS: INSULIN GLARGINE SYRINGE. SQ SCH ×2 (09:33→21:13)
[2021-03-26] MEDS ORDERED: FUROSEMIDE 40 MG/4 ML VIAL. IVP ONE (10:00)
--- NOTE | 2021-03-26 10:00 | PDOC ---
PULMONARY PROGRESS NOTES DATE: 03/26/21 TIME: 09:56 Subjective Patient did tolerated CPAP trial for an extended. Off time yesterday. This morning, patient had increased respiratory rate while on CPAP trial. Re sted back on assist control no overnight concerns On Precedex. Off sedation Bedside PEG could not be placed. Surgical PEG is scheduled for tomorrow Vitals Vital Signs Date Time Temp Pulse Resp B/P (MAP) Pulse Ox O2 Delivery O2 Flow Rate FiO2 03/26/21 09:08 97 Ventilator 03/26/21 09:00 88 26 106/82 (90) 03/26/21 08:00 100.5 100.5 03/25/21 13:47 90.0 General: Alert, No acute distress Lungs: Crackles, Other (On vent with trach collar in place) Cardiovascular: S1 Abdomen: Soft Skin: Warm Labs Laboratory Tests Test 03/24/21 13:29 03/24/21 18:21 03/24/21 23:53 03/25/21 05:46 Glucose (Fingerstick) 72 mg/dL (70-99) 161 mg/dL (70-99) 148 mg/dL (70-99) Sodium Level 134 mmol/L (136-145) Potassium Level 3.7 mmol/L (3.5-5.1) Chloride Level 98 mmol/L (98-107) Carbon Dioxide Level 28 mmol/L (21-32) Anion Gap 8 (6-14) Blood Urea Nitrogen 35 mg/dL (7-20) Creatinine 4.2 mg/dL (0.6-1.0) Estimated GFR (Cockcroft-Gault) 11.4 Glucose Level 177 mg/dL (70-99) Calcium Level 8.6 mg/dL (8.5-10.1) Alkaline Phosphatase 316 U/L (46-116) Test 03/25/21 08:00 03/25/21 16:38 03/26/21 00:27 03/26/21 06:21 O2 Saturation 98 % (92-99) Arterial Blood pH 7.45 (7.35-7.45) Arterial Blood pCO2 at Patient Temp 35 mmHg (35-46) Arterial Blood pO2 at Patient Temp 104 mmHg (75-108) Arterial Blood HCO3 24 mmol/L (21-28) Arterial Blood Base Excess 1 mmol/L (-3-3) FiO2 45% vent Glucose (Fingerstick) 122 mg/dL (70-99) 145 mg/dL (70-99) 153 mg/dL (70-99) Test 03/26/21 07:15 O2 Saturation 91 % (92-99) Arterial Blood pH 7.50 (7.35-7.45) Arterial Blood pCO2 at Patient Temp 34 mmHg (35-46) Arterial Blood pO2 at Patient Temp 60 mmHg (75-108) Arterial Blood HCO3 26 mmol/L (21-28) Arterial Blood Base Excess 3 mmol/L (-3-3) FiO2 45% vent Laboratory Tests Test 03/25/21 16:38 03/26/21 00:27 03/26/21 06:21 03/26/21 07:15 Glucose (Fingerstick) 122 mg/dL (70-99) 145 mg/dL (70-99) 153 mg/dL (70-99) O2 Saturation 91 % (92-99) Arterial Blood pH 7.50 (7.35-7.45) Arterial Blood pCO2 at Patient Temp 34 mmHg (35-46) Arterial Blood pO2 at Patient Temp 60 mmHg (75-108) Arterial Blood HCO3 26 mmol/L (21-28) Arterial Blood Base Excess 3 mmol/L (-3-3) FiO2 45% vent Medications Active Scripts Medications Dose Route/Sig Max Daily Dose Days Date Category Novolog Flexpen (Insulin Aspart) 100 Unit/1 Ml Insuln.pen 3-7 SQ TIDACHC 02/07/21 Reported Lisinopril 5 Mg Tablet 1 Tab PO DAILY 02/07/21 Reported Lantus Solostar (Insulin Glargine,Hum.rec.anlog) 100 Unit/1 Ml Insuln.pen 5 Unit SQ QHS 04/09/15 Reported Atorvastatin Calcium 40 Mg Tablet 40 Mg PO HS 04/09/15 Reported Comments Chest x-ray reviewed 03/26/2021. Unchanged bilateral diffuse interstitial infiltrates 03/20/21 CXR IMPRESSION: Continued presence of diffuse pulmonary opacities bilaterally without interval improvement. Impression . IMPRESSION: 1. Acute hypoxic respiratory failure secondary to COVID-19 viral pneumonia/acute lung injury and early acute respiratory distress syndrome. S/P intubation 02/17/21. Status post tracheostomy. 2. Nonsmoker. 3. Abnormal chest x-ray consistent with COVID-19 viral pneumonia.--- No significant change 4. Diabetic ketoacidosis--resolved 5. Underlying obesity contributing to hypoxia as well. 6. BOB . hemodialysis started 03/07 7. Fever, per ID--resolved 8. Abnormal chest x-ray with diffuse interstitial infiltrates compatible with viral pneumonia 9. [place] in the sputum is a contamination 10. Septic shock--resolved Plan . Updated 03/26/21 Continue daily pressure support trials. Will use higher pressure support for improved compliance. Likely trial of trach shield trial, once down to pressure support of 10. Patient received 1 dose of Lasix today to see an improvement in her oxygenation Surgery consulted for surgical PEG. Scheduled for Tuesday Currently on Precedex drip. Follow CXR/ABG Follow nephrology recs Monitor HBG , follow GI recs Follow ID recs for ABX DVT/GI PPX D/W RN and RT Updated 03/25/21 Continue daily pressure support trials. Currently on pressure support of 16. We will wean the pressure support down to 10. Likely trial of trach shield in the next 24 hours Surgery consulted for surgical PEG. Currently on Precedex drip. Follow CXR/ABG Follow nephrology recs Monitor HBG , follow GI recs Follow ID recs for ABX DVT/GI PPX D/W RN and RT Updated 03/24/21 Continue current vent support, currently on 40% FiO2 and volume control mechanical ventilation. We will try CPAP trials. Surgery consulted for surgical PEG. Currently on Precedex drip. Follow CXR/ABG Follow nephrology recs Monitor HBG , follow GI recs Follow ID recs for ABX DVT/GI PPX D/W RN and RT Updated 03/23/21 Continue current vent support, currently on 45% in PC mode. We will ask respiratory to switch her to volume control mode. Will monitor peak airway pressures. Currently on Precedex drip. Follow CXR/ABG Follow nephrology recs Monitor HBG , follow GI recs Follow ID recs for ABX DVT/GI PPX D/W RN and RT PEG tube is a scheduled for today and after that she should be stable for LTAC transfer once accepted Updated 03/22/21 Continue current vent support, currently on 45% in PC mode. We will ask respiratory to switch her to volume control mode in a.m. Did not tolerated coming off sedation well with increasing blood pressure. Currently on low-dose fentanyl and Precedex drip. Follow CXR/ABG Follow nephrology recs Monitor HBG , follow GI recs Follow ID recs for ABX DVT/GI PPX D/W RN and RT PEG tube is a scheduled for tomorrow and after that she should be stable for LTAC transfer Updated 03/21/21 Continue current vent support, currently on 45% in PC mode Discontinue sedation and assess mental status. Once more awake CPAP trial. Follow CXR/ABG Follow nephrology recs Monitor HBG , follow GI recs Follow ID recs for ABX DVT/GI PPX D/W RN and RT Updated 03/20/21 Continue current vent support, currently on 45% in PC mode will reduce to 40% and change to 1:2 IE ratio Reduce sedation and assess mental status Follow CXR/ABG Follow nephrology recs Monitor HBG , follow GI recs Follow ID recs for ABX DVT/GI PPX D/W RN and RT Updated 03/[address] Whitley On exam she appears to be less puffy Finish course of remdesivir and dexamethasone Hemodialysis DVT GI prophylaxis Off pressors Chest x-ray reviewed, no significant change, 03/18 updated 03/18 Continue current mechanical support Hemodialysis per Dr. Sims Nutritional support DVT GI prophylaxis EMILY POSADA MD Mar 26, 2021 10:00
--- NOTE | 2021-03-26 10:03 | RAD ---
EXAM: Chest, single view. HISTORY: Ventilatory support. COMPARISON: 03/20/2021 FINDINGS: A frontal view of the chest is obtained. There has been slight interval increase in diffuse infiltrate. No pleural effusion or pneumothorax is seen. There is a stable cardiac silhouette. There is a tracheostomy device unchanged in position. There is an enteric catheter within the stomach. The re is a right internal jugular catheter with the tip overlying the expected location of the superior cavoatrial junction. There is a right PICC with the tip overlying the expected location of the superi or right atrium. IMPRESSION: 1. Slight interval increase in diffuse infiltrate. 2. Stable support lines and tubes. Electronically signed by: Roula Sanches MD (03/26/2021 10:01 AM) [id number]
--- NOTE | 2021-03-26 10:46 | PDOC ---
Date of Service: DATE: 03/26/21 TIME: 10:43 Objective: Vital Signs: Vital Signs Date Time Temp Pulse Resp B/P (MAP) Pulse Ox O2 Delivery O2 Flow Rate FiO2 03/26/21 10:00 80 24 157/70 (99) 99 Ventilator 03/26/21 08:00 100.5 100.5 03/25/21 13:47 90.0 Labs: Laboratory Tests Test 03/25/21 16:38 03/26/21 00:27 03/26/21 06:21 03/26/21 07:15 Glucose (Fingerstick) 122 mg/dL 145 mg/dL 153 mg/dL O2 Saturation 91 % Arterial Blood pH 7.50 Arterial Blood pCO2 at Patient Temp 34 mmHg Arterial Blood pO2 at Patient Temp 60 mmHg Arterial Blood HCO3 26 mmol/L Arterial Blood Base Excess 3 mmol/L FiO2 45% vent BLOOD CULTURE Preliminary NO GROWTH AFTER 4 DAYS Imaging: CXR 03/26 IMPRESSION: 1. Slight interval increase in diffuse infiltrate. 2. Stable support lines and tubes. PE: GEN: chronically ill - visual exam done LUNGS: trach/vent HEART: borderline tachycardic ABD: Dobhoff feeds NEURO/PSYCH: resting A/P: COVID-19, resp failure s/p trach, BOB, unsuccessful PEG attempt -- G-tube per surgery tomorrow. Justicifation of Admission Dx: Justifications for Admission: Justification of Admission Dx: N/A JANELLE MONTENEGRO Mar 26, 2021 10:46
--- NOTE | 2021-03-26 12:06 | PDOC ---
[facility] [facility] PROGRESS NOTE Date of Service DOS: DATE: 03/26/21 TIME: 12:00 Chief Complaint Chief Complaint CC: Covid-19 DKA Hypotension Nausea Vomiting Combined metabolic and respiratory acidosis Acute electrolyte derangementhyponatremia, hypochloremia due to volume depletion Hyperglycemia BOB Erythrocytosis Candiduria Sacral decubitus ulcer S/P Trach on (03/17/21) Trach cultures positive for [place] albicans and now acinebacter ursungi History of Present Illness History of Present Illness Ms Borges is a 46 year old female who presented with nausea/vomiting since 7 AM 02/06/2021 in the morning. Patient stated that her recently tested po sitive for Covid. She states that he "coughed in my face because he thought it was funny." She reports subjective fevers and chills and nausea/vomiting. Denies sore throat, cough, shortness of breath. No chest pain. Does have some upper abdominal discomfort after vomiting, that she attributes to muscular strain. She was not vaccinated for Covid. 02/08: No acute events overnight. Patient seen and examined bedside and resting comfortably. Continues to complain of nausea not able to tolerate any diet at this time. Saturating 98% on room air. Patient's chart, labs, images were reviewed and discussed with RN 02/09: Afebrile, currently breathing on room air. Still with complaints of nausea and vomiting x3 today. States that she has history of similar symptoms that have been mildly improved with IV Dilaudid. 02/10: Patient febrile today with T-max 102.2 F. She still admits to nausea, denies any further vomiting. We will continue to provide supportive care and monitor for any recurrent fevers overnight. Patient continues to improve may discharge tomorrow to continue self-isolation. 02/11: Febrile overnight, T-max 102.3 F. She did become hypoxic overnight, currently breathing on 4 L nasal cannula. Also admits to associated vomiting or diarrhea overnight. Discussed with RN, will initiate remdesivir and closely monitor LFTs. IV Decadron, and prophylactic antibiotics. 02/12: Low-grade fever overnight, T-max 99.7. Currently breathing on room air. Will discontinue remdesivir, steroids, and antibiotics; will observe overnight. Still with complaints of vomiting x1 and diarrhea. We will continue to provide supportive care and hope to discharge in the next day or so. 02/13: Afebrile. Still complains of intermittent diarrhea. At the time of my evaluation she was breathing on 6 L nasal cannula; this is somewhat misleading as patient states that she did not feel short of breath but was placed on 6 L by nursing staff overnight. 02/14: Afebrile, currently breathing on 8 L nasal cannula. There has been some misleading documentation, chart oxygen this patient is requiring. Discussed with RN, will resume remdesivir to complete total of 5 days. Continue to monitor LFTs. Will add steroids, Rocephin, and azithromycin. 02/15: Afebrile. Became much more hypoxic overnight, requiring BiPAP. At the time of my evaluation she is still breathing on BiPAP. Consultation was placed to pulmonology. Had discussion with Dr. Myrick about initiating Tocilizumab 02/16: No acute events overnight. Patient becoming more hypoxic saturating 94% and requiring BiPAP. Patient will be transferred to the ICU at this time. For worsening clinical status. Discussed with pulmonary. Patient's chart, labs, images were reviewed and discussed with RN 02/17: Transferred to ICU yesterday afternoon. Seen and examined at bedside she remains on 100% FiO2 on BiPAP. Respirations do appear somewhat labored. Suspect intubation may be impending. We will closely monitor. Increase lisinopril to 20 today. 02/18: Patient required intubation yesterday afternoon. Saw and examined this morning. She is intubated and sedated. Increase insulin today. Covid protocol ordered. Wean as tolerated. Plan of care discussed with bedside nurse. 02/19: Bedside. She remains intubated and sedated. Continue Covid protocol. Wean oxygen sedation as tolerated. Pulmonary following. Plan of care discussed with bedside RN. 02/20: Patient seen and examined at bedside. She remains intubated and sedated. No major clinical changes. Continue current treatment. Pulmonary following. Plan of care discussed with bedside RN. 02/21: Patient seen and examined at bedside. Remains intubated and sedated date and admission clinical changes. Increase free water flushes today due to hypernatremia. Plan of care discussed with bedside nurse. 02/22: Patient seen and examined at bedside. O2 requirement actually improving, although remains intubated. Possible SBT in the coming days. Hypernatremia improving. Plan of care discussed bedside RN. 02/23: Patient remains in ICU on ventilator with FiO2 100%, PEEP 7. Repeat chest x-ray yesterday showed diffuse bilateral pulmonary opacities with no interval improvement. Will discontinue Rocephin and initiate Zosyn. We will continue IV steroids for a full 10-day course 02/24: Afebrile. On vent with FiO2 40%, PEEP 6. Her Coreg has been held due to persistent bradycardia. No documented history of systolic heart failure or previous echocardiogram. Will need to obtain echocardiogram prior to discharge. Continue IV steroids and antibiotics. 02/25: Afebrile. Remains ventilated with FiO2 45%, PEEP 6. Chest x-ray today showed slight improvement of the pulmonary infiltrates, no pneumothorax. Completed 10-day course of IV Decadron. Will initiate slow Solu-Medrol taper. Continue IV Zosyn. Continue supportive care. 02/26: Afebrile. On vent with FiO2 45%, PEEP 6. Completed 10 days of IV Decadron. Will continue IV Zosyn. Continue supportive care. Critical care time 30 minutes spent reviewing charts, reviewing imaging, reviewing labs, discussion with RN. 02/27: Afebrile. On vent with FiO2 45%, PEEP 6. Completed 10 days of steroids and completed remdesivir. Continue with IV Zosyn. CPAP trial yesterday. Continue NG tube and supportive care. 02/28:. Patient remains on vent with FiO2 40%, PEEP 5. Afebrile. Completed steroids and remdesivir. Some noted hypoglycemia overnight, will de-escalate basal insulin. Continue IV Zosyn. Ventilator management per pulmonology. Continue NG tube and supportive care. 03/01: On vent with FiO2 40%, PEEP 5. Afebrile. Completed steroids and remde sivir. Blood glucose well controlled. Continue empiric antibiotics with Zosyn. Ventilator management per pulmonology. Continue NG tube and supportive care. 03/02: No acute events overnight. Patient hypotensive the morning due to oversedation. Will wean off sedation and keep antihypertensive medications on board. Currently saturating 100% on vent settings of 18/450/40/5. Will attempt spontaneous breathing trial today to see how patient does. 03/03: No acute events overnight. Patient saturating 98% on vent settings of 18/450/40/5. Will defer spontaneous breathing trials to pulmonary at this time. Patient's chart, labs, images were reviewed and discussed with RN 8: No acute events overnight. Patient saturating 9 9% on vent settings of 18/450/30/5. Patient currently is unable to tolerate weaning. Per pulmonary. Patient's chart, labs, images were reviewed and discussed with RN 03/05: No acute events overnight. Patient is saturating 97% on vent settings of 18/450/55/5. Her FiO2 needs to be increased due to abnormal ABG with 7.3 //24. Patient's chart, labs, images were reviewed and discussed with RN 03/06: No acute events overnight. Patient saturating 94% on vent settings of 18/450/55/5. Chest x-ray showing increase in pulmonary infiltrates. Wound care is consulted for decubitus ulcer patient's chart, labs, images were reviewed and discussed with RN 03/07: No acute events overnight. Patient saturating 94% on vent settings of 20/450/70/8. Patient now heading into renal failure with her creatinine bumped up from 1.5-4.2. Decreased urine output. Plan for hemodialysis today and temporary catheter placement and nephrology is consulted. 03/08: No acute events overnight. Patient did have a nausea vomiting episode and tube feeds were held. KUB repeat shows NG tube still in the stomach. Will resume tube feeds at trickle and advance to goal today. Will start hemodialysis soon. 03/09: Seen on vent 20/450/60%/8. ABG 7.2 WBC 11.4, Hb 7.4, platelets 188, NA 131, K4.9, BUN 48, CR 51, glucose 199, phosphorus 7.9, mag 2.2, AST 265 ALT 219, albumin 1.1. Chest radiograph appears unchanged from prior. Dialysis x1 today 03/10: Afebrile. Seen on vent, 20/450/60/7 with ABG 7.3 . Tolerated dialysis well on 03/09. LFTs similar. 03/11: Afebrile. Seen on vent, sedated. Still requiring Levophed for BP support. WBC 16.7, Hb 8.1, NA 130, ABG 7.3 on 55% FiO2 PEEP 6. On Zosyn and Zyvox Diflucan. Dialysis today 03/12: Afebrile. Still requiring Levophed for BP support sedated with Versed febrile Precedex. WBC 16.1, Hb 8.5, platelets 185, NA 133. Trach plan tentatively 03/17. O2 saturations 93% on 50% FiO2 PEEP 6. ABG 7.38/35/79 On Zosyn and Zyvox Diflucan. 03/13: Afebrile. Still on Levophed for BP support lightly sedated. 7.31/37/61 on 45% FiO2. Plan for dialysis today. On Zosyn and Zyvox Diflucan. More swollen today. 03/14: Afebrile. Weaning down off Levophed. WBC 14.9 NA 132. O2 saturations 92% on 45% FiO2 PEEP 5. Afebrile. O2 saturations 91% on FiO2 45% PEEP 6. Continued on Zosyn and Zyvox Diflucan. Tentative trach planned 03/17/2021 CC time 31 minutes 03/16/21: Patient seen and examined in ICU. Periorbital as well as upper and lower extremity edema noted. OG feed running at 30cc/hr. Still on vent on pressure control with a rate of 24 with 45% FiO2. Patient has rectal bag. Currently she has 98% O2 sat. Currently sedated with Dexmedetomidine, Propofol, Versed, and Fentanyl. Discussed with RN. Chart reviewed. 03/17/21: Patient was seen and examined in the ICU today. Periorbital edema as wel l as abdominal and mons pubis edema was noted. Patient still on vent on pressure control with Fi02 of 45% plus 6 PEEP. Patient had rectal bag. Currently sedated on Dexmedetomidine, Propofol, Versed, and Fentanyl. Discussed with RN. Chart reviewed. 03/18/21: Patient seen and examined in ICU. On vent via trach that was placed yesterday. Vent settings are Pressure Control of 40 with FiO2 of 45% and 6 PEEP. Trach clean and dry. Orbital swelling still present. Pupils are sluggish. Patient on TPN running at 30cc/hr. Kern to bedside and rectal bag in place. Current O2 sat at 94%. Sedated on Dexmedetomidine, Propofol, Versed, and Fentanyl. Discussed with RN. Chart reviewed. 03/19/21: Patient was seen and examined in the ICU today. Currently on vent via trach on pressure control of 42, rate of 24, FiO2 of 45%, and 6 PEEP. O2 sat is at 97% while patient is being examined. Trach is clean and dry. PICC line is in place on right arm. Periorbital swelling has decreased slightly since examined yesterday. Patient is sedated on Dexmedetomidine, Propofol, Versed, and Fentanyl. Discussed with RN. Chart reviewed. 03/20/21: Patient seen and examined in the ICU. Periorbital edema is slightly decreased since yesterday. O2 sat while being examined was 93%. NG tube in place and running at 30cc/hr. Patient on vent via trach on pressure control of 40 with FiO2 of 45 and rate of 24. Sedated on Dexmedetomidine, Propofol, Versed, and Fentanyl. PICC line in place. Kern to bedside. Rectal bag present. Discussed with RN. Chart reviewed. 03/21/21: Patient was seen and examined in the ICU today. She was semi-sedated.. She was on Dexmedetomidine and Fentanyl. We are holding the Propofol. Her eyes were periodically open but she was not making meaningful eye contact or tracking. On vent via trach with pressure control of 40 and FiO2 at 45. Rate was 24. PEEP was 5. Trach was clean and dry. While being examined, her O2 sat was 94%. Rectal bag and Kern to bedside in place. NG tube in place and feeding at 30cc/hr. IV fluids still running. Levophed has been stopped. Discussed with RN. Chart reviewed. 03/22/21: Patient was seen and examined in the ICU. She was semi-sedated on Propofol and Dexmedetomidine. Her eyes were open but she did not make meaningful eye contact. Her blood pressure was elevated (198/102) while being examined and she had just been given hydralazine to lower it. There are plans to place a PEG tube tomorrow. Currently on vent via trach on pressure control of 40 with FiO2 of 45%, 5 PEEP, and a rate of 24. Current O2 sat is 98%. She is feeding through an NG tube at 30cc/hr. Rectal bag and Kern to bedside present. SCDs on patient for DVT prophylaxis. She did not do her daily dialysis today but the plan is to start back on that tomorrow. Discussed with RN. Chart reviewed. 03/23/2021: Patient remains in ICU on ventilator. FiO2 40%, PEEP 5. Trach cultures positive for [place] albicans and acinebacter ursungi. We will continue treatment with IV antibiotics and micafungin, per ID. HD per nephrology. Plans for PEG tube placement today. 30 minutes critical care time was spent reviewing charts, reviewing labs, reviewing imaging, discussion with RN. 03/24/2021: Afebrile. On vent with FiO2 45%, PEEP 5. Had attempted PEG placement per GI yesterday, but unable to locate safe path for PEG; will consider surgical opinion. Once PEG is in place she should be stable for LTAC transfer when accepted. Continue antibiotics, per ID. 30 minutes critical care time was spent reviewing charts, reviewing labs, reviewing imaging, discussion with RN. 03/25/2021: Febrile overnight with T-max 101.5 F. On vent with FiO2 45%, PEEP 5. Surgery has been consulted with tentative plans for laparoscopic versus open gastrostomy placement tomorrow. Trach cultures positive for [place] albicans and now acinebacter ursungi; will continue antibiotic management, per ID. Hemodialysis, per nephrology. Patient needing LTAC placement, but currently without benefits. passementerie worker following for discharge planning. Critical care time 30 minutes spent reviewing charts, reviewing labs, reviewing imaging, discussion with RN. 03/26/2021: Febrile today with T-max 100.5 F. Awake on vent with FiO2 45%, PEEP 5. When I ask if she remembers any she nods. G-tube placement scheduled for tomorrow, per general surgery. Chest x-ray today showed slight interval increase in diffuse infiltrate. Continue antibiotic management, per ID. Hemodialysis per nephrology. Reportedly did not tolerate CPAP trial this morning. passementerie worker following for LTAC placement. Critical care time 30 minutes spent reviewing charts, reviewing labs, reviewing imaging, discussion with RN. Vitals/I&O Vitals/I&O: Vital Signs Date Time Temp Pulse Resp B/P (MAP) Pulse Ox O2 Delivery O2 Flow Rate FiO2 03/26/21 11:54 102 175/93 03/26/21 11:27 99 Ventilator 03/26/21 11:00 24 03/26/21 08:00 100.5 100.5 03/25/21 13:47 90.0 I & O 03/25/21 03/25/21 03/26/21 15:00 23:00 07:00 Intake Total 200 ml 1309.6 ml 723 ml Output Total 0 ml 40 ml 90 ml Balance 200 ml 1269.6 ml 633 ml Physical Exam Physical Exam: GENERAL: Intubated and sedated. Trach HEENT: Normocephalic, atraumatic. Anicteric. Slight bilateral periorbital edema. Neck right IJ HDC clean LUNGS: Rhonchi. HEART: S1, S2. No murmurs. ABDOMEN: Obese, soft. Bowel sounds present. Nontender, nondistended. Abdominal and mons pubis edema noted. GENITOURINARY: Kern and fecal tube in place. EXTREMITIES: Edema present no cyanosis. CENTRAL NERVOUS SYSTEM: Intubated. PSYCHIATRIC: Unable to assess. Derm has pressure wounds wound pictures noted in chart. Generalized rash, PICC line , right IJ HDC clean General: No acute distress Heart: Regular rate, Normal S1, Normal S2, No murmurs, Gallops Lungs: Crackles, Other (On vent with trach collar in place) Abdomen: Soft, No tenderness Extremities: Other (ANASARCA) Skin: No rashes, No significant lesion Labs Labs: Laboratory Tests Test 03/25/21 16:38 03/26/21 00:27 03/26/21 06:21 03/26/21 07:15 Glucose (Fingerstick) 122 mg/dL (70-99) 145 mg/dL (70-99) 153 mg/dL (70-99) O2 Saturation 91 % (92-99) Arterial Blood pH 7.50 (7.35-7.45) Arterial Blood pCO2 at Patient Temp 34 mmHg (35-46) Arterial Blood pO2 at Patient Temp 60 mmHg (75-108) Arterial Blood HCO3 26 mmol/L (21-28) Arterial Blood Base Excess 3 mmol/L (-3-3) FiO2 45% vent Test 03/26/21 11:50 Glucose (Fingerstick) 174 mg/dL (70-99) Assessment and Plan Assessmemt and Plan Problems Medical Problems: (1) Ketoacidosis Status: Acute Comment Review of Relevant I have reviewed the following items mazin (where applicable) has been applied. Medications: Current Medications Medications (Trade) Dose Ordered Sig/Pepe Route PRN Reason Start Time Stop Time Status Last Admin Dose Admin Furosemide (Lasix) 40 mg 1X ONCE IVP 03/26/21 10:00 03/26/21 10:01 DC 03/26/21 09:54 Justifications for Admission Other Justification SANDI ALCARAZ MD Mar 26, 2021 12:06
--- NOTE | 2021-03-26 15:56 | NUR ---
SS following up with discharge planning. SS reviewed pt chart and discussed with pt RN. Pt is currently on the vent at 45%. COVID19 recovered. Trach in place. Pt on Sub Q Heparin, Fentanyl, and Precedex. Pt on IV Meropenem. Dobhoff in place. Dr. Mills placing complex G-tube tomorrow. Self pay. Med Assist following. Pt currently needing LTACH placement at this time, but currently has no benefits. SS will continue to follow for discharge planning.
[2021-03-26] MEDS: MEROPENEM 1 GM in IV NORMAL SALINE 100ML 100 ML IV SCH (17:06)
[2021-03-26] MEDS: ATORVASTATIN CALCIUM 40 MG TABLET. PO SCH (21:10)
[2021-03-26] MEDS: PROPOFOL 100 ML IV PRN (23:22)
[2021-03-27] VITALS (25 sets, daily range): BP systolic 109–192; BP diastolic 62–90
[2021-03-27] MEDS: INSULIN LISPRO 300 UNITS/3 ML VIAL. SQ SCH ×4 (00:13→17:14)
[2021-03-27] MEDS: DEXMEDETOMIDINE 400 MCG in IV NORMAL SALINE 100ML 96 ML IV PRN ×5 (01:22→22:22)
[2021-03-27] MEDS: PROPOFOL 100 ML IV PRN ×4 (01:57→17:08)
[2021-03-27] MEDS ORDERED: MORPHINE SULFATE 2 MG/ML INJ. IVP PRN (06:00)
[2021-03-27] MEDS ORDERED: IV RINGERS,LACTATED 1000ML 1,000 ML IV SCH (06:00)
[2021-03-27] MEDS ORDERED: HYDROmorphone 2 MG/ML VIAL IVP PRN (06:00)
[2021-03-27] MEDS ORDERED: fentaNYL PF VIAL 100 MCG/2 ML VIAL IVP PRN ×2 (06:00)
[2021-03-27] MEDS: HEPARIN for SUB-Q USE 5,000 UNIT/ML VIAL. SQ SCH ×3 (06:00→20:49)
[2021-03-27] MEDS ORDERED: PROCHLORPERAZINE 10 MG/2 ML VIAL. IVP PRN (06:00)
[2021-03-27] MEDS: fentaNYL HIGH DOSE PCA 55 ML IV PRN (06:33)
[2021-03-27] MEDS: hydrALAZINE 20 MG/ML VIAL. IVP PRN ×2 (06:37→18:10)
[2021-03-27 06:55] LABS: CALCIUM 8.8 mg/dL (8.5-10.1); CREATININE 4.6 mg/dL (0.6-1.0); GFR 10.3; POTASSIUM 3.2 mmol/L (3.5-5.1)
[2021-03-27] MEDS: DOCUSATE 100 MG/10 ML SOLUTION. PO SCH ×2 (07:00→20:48)
[2021-03-27] MEDS: MULTIVITAMINS,THERAPEUTIC 5 ML ORAL LIQUID. PEG SCH (07:00)
[2021-03-27] MEDS: INSULIN GLARGINE SYRINGE. SQ SCH ×2 (07:01→20:50)
[2021-03-27] MEDS: FAMOTIDINE 20 MG/2 ML VIAL IVP SCH (07:34)
[2021-03-27] MEDS: NYSTATIN TOPICAL POWDER 15GM BOTTLE. TP SCH ×2 (07:34→20:50)
--- NOTE | 2021-03-27 07:46 | PDOC ---
Infectious Disease Note Subjective Subjective Pt intubated Patient is awake appears to follow some commands Status post tracheostomy ROS ROS No nausea vomiting diarrhea fever Vital Sign Vital Signs Vital Signs Date Time Temp Pulse Resp B/P (MAP) Pulse Ox O2 Delivery O2 Flow Rate FiO2 03/27/21 07:03 24 99 Ventilator 03/27/21 07:00 56 157/76 (103) 03/27/21 06:00 96.6 96.6 Physical Exam PHYSICAL EXAM GENERAL: Intubated and sedated. Trach HEENT: Normocephalic, atraumatic. Anicteric. Slight bilateral periorbital edema. Neck right IJ HDC clean LUNGS: Rhonchi. HEART: S1, S2. No murmurs. ABDOMEN: Obese, soft. Bowel sounds present. Nontender, nondistended. Abdominal and mons pubis edema noted. GENITOURINARY: Kern and fecal tube in place. EXTREMITIES: Edema present no cyanosis. CENTRAL NERVOUS SYSTEM: Intubated. PSYCHIATRIC: Unable to assess. Derm has pressure wounds wound pictures noted in chart. Generalized rash, PICC line , right IJ HDC clean Labs Lab Laboratory Tests Test 03/26/21 11:50 03/26/21 17:50 03/27/21 00:08 03/27/21 05:45 Glucose (Fingerstick) 174 mg/dL (70-99) 141 mg/dL (70-99) 183 mg/dL (70-99) Sodium Level 135 mmol/L (136-145) Potassium Level 3.2 mmol/L (3.5-5.1) Chloride Level 98 mmol/L (98-107) Carbon Dioxide Level 27 mmol/L (21-32) Anion Gap 10 (6-14) Blood Urea Nitrogen 33 mg/dL (7-20) Creatinine 4.6 mg/dL (0.6-1.0) Estimated GFR (Cockcroft-Gault) 10.3 Glucose Level 158 mg/dL (70-99) Calcium Level 8.8 mg/dL (8.5-10.1) Test 03/27/21 06:40 Glucose (Fingerstick) 149 mg/dL (70-99) Micro GRAM STAIN EVALUATION Final Final This specimen is of good quality and is acceptable for routine bacterial culture. Culture results to follow. NO ORGANISMS SEEN. SQUAMOUS EPI CELL:RARE PMN (WBCs):MODERATE Unless otherwise specified, Testing Performed by: [address] [address] For Inquires, the Physician may contact the Microbiology department at [phone] RESPIRATORY CULTURE Final Final MODERATE GRAM NEGATIVE RODS on 03/18/21 at 1120 FINAL ID= [ACINETOBACTER [id number].] ACINETOBACTER GINAINGII. ANTIMICROBIAL SUSCEPTIBILITY Final Comment NEG SAGE 56 ACINETOBACTER URSINGII. ANTIBIOTIC RESULT INTERPRETATION AMPICILLIN/SULBACTAM <=4/2 S AMIKACIN <=16 S CEFTRIAXONE 2 S CEFTAZIDIME 16 I CEFOTAXIME 16 I CIPROFLOXACIN <=0.25 S CEFEPIME 4 S GENTAMICIN <=2 S LEVOFLOXACIN <=0.5 S RUN DATE: 03/19/21 [facility] *LIVE* PAGE 2 RUN TIME: 1120 Specimen Inquiry SPEC: [id number] PATIENT: ARIADNA BANKS [id number] (Continued) ------- ----- Procedure Result CONTINUED ON NEXT PAGE RUN DATE: 03/19/21 [facility] *LIVE* PAGE 3 RUN TIME: 1120 Specimen Inquiry SPEC: [id number] PATIENT: ARIADNA BANKS [id number] (Continued) Procedure Result ANTIMICROBIAL SUSCEPTIBILITY Final (continued) MINOCYCLINE <=4 S MEROPENEM <=1 S TRIMETHOPRIM/SULFAMETHOXAZOLE <=0.5/9.5 S TOBRAMYCIN <=2 S Unless otherwise specified, Testing Performed by: [address] [id number] For Inquires, the Physician may contact the Microbiology department at [phone] Culture negative Objective Assessment 1. Febrile illness. Improved 2. COVID-19 infection present on date of admission, 02/06/2021. Status post remdesivir, dexamethasone. 3. Acute hypoxic respiratory failure, status post intubation. S/P Trach on 03/17 Trach cultures positive for [place] albicans and now acinebacter ursungi 4. Diabetes. 5. Diarrhea. 6. Hypertension. 7. Hyperlipidemia. 8. Anemia. 9. BOB on HD 10.UC rock albican, ua neg Plan Plan of Care Cont Meropenem Follow-up lab ,cultures, C. diff PCR negative Erlin changed per team Wound care per wound treatment Offload Continue supportive care. Awaiting PEG on Tuesday Prognosis guarded. D/W BLANCA CURIEL MD Mar 27, 2021 07:46
--- NOTE | 2021-03-27 08:02 | PDOC ---
[facility] PROGRESS NOTE Date of Service DOS: DATE: 03/27/21 TIME: 07:41 Chief Complaint Chief Complaint CC: Covid-19 DKA Hypotension Nausea Vomiting Combined metabolic and respiratory acidosis Acute electrolyte derangementhyponatremia, hypochloremia due to volume depletion Hyperglycemia BOB due to ATN, requiring dialysis Erythrocytosis Candiduria Sacral decubitus ulcer S/P Trach on (03/17/21) Trach cultures positive for [place] albicans and now acinebacter ursungi History of Present Illness History of Present Illness Ms Borges is a 46 year old female who presented with nausea/vomiting since 7 AM 02/06/2021 in the morning. Patient stated that her recently tested positive for Covid. She states that he "coughed in my face because he thought it was funny." She reports subjective fevers and chills and nausea/vomiting. Denies sore throat, cough, shortness of breath. No chest pain. Does have some upper abdominal discomfort after vomiting, that she attributes to muscular strain. She was not vaccinated for Covid. 02/08: No acute events overnight. Patient seen and examined bedside and resting comfortably. Continues to complain of nausea not able to tolerate any diet at this time. Saturating 98% on room air. Patient's chart, labs, images were reviewed and discussed with RN 02/09: Afebrile, currently breathing on room air. Still with complaints of nausea and vomiting x3 today. States that she has history of similar symptoms that have been mildly improved with IV Dilaudid. 02/10: Patient febrile today with T-max 102.2 F. She still admits to nausea, denies any further vomiting. We will continue to provide supportive care and monitor for any recurrent fevers overnight. Patient continues to improve may discharge tomorrow to continue self-isolation. 02/11: Febrile overnight, T-max 102.3 F. She did become hypoxic overnight, currently breathing on 4 L nasal cannula. Also admits to associated vomiting or diarrhea overnight. Discussed with RN, will initiate remdesivir and closely monitor LFTs. IV Decadron, and prophylactic antibiotics. 02/12: Low-grade fever overnight, T-max 99.7. Currently breathing on room air. Will discontinue remdesivir, steroids, and antibiotics; will observe overnight. Still with complaints of vomiting x1 and diarrhea. We will continue to provide supportive care and hope to discharge in the next day or so. 02/13: Afebrile. Still complains of intermittent diarrhea. At the time of my evaluation she was breathing on 6 L nasal cannula; this is somewhat misleading as patient states that she did not feel short of breath but was placed on 6 L by nursing staff overnight. 02/14: Afebrile, currently breathing on 8 L nasal cannula. There has been some misleading documentation, chart oxygen this patient is requiring. Discussed with RN, will resume remdesivir to complete total of 5 days. Continue to monitor LFTs. Will add steroids, Rocephin, and azithromycin. 02/15: Afebrile. Became much more hypoxic overnight, requiring BiPAP. At the time of my evaluation she is still breathing on BiPAP. Consultation was placed to pulmonology. Had discussion with Dr. Myrick about initiating Tocilizumab 02/16: No acute events overnight. Patient becoming more hypoxic saturating 94% and requiring BiPAP. Patient will be transferred to the ICU at this time. For worsening clinical status. Discussed with pulmonary. Patient's chart, labs, images were reviewed and discussed with RN 02/17: Transferred to ICU yesterday afternoon. Seen and examined at bedside she remains on 100% FiO2 on BiPAP. Respirations do appear somewhat labored. Suspec t intubation may be impending. We will closely monitor. Increase lisinopril to 20 today. 02/18: Patient required intubation yesterday afternoon. Saw and examined this morning. She is intubated and sedated. Increase insulin today. Covid protocol ordered. Wean as tolerated. Plan of care discussed with bedside nurse. 02/19: Bedside. She remains intubated and sedated. Continue Covid protocol. Wean oxygen sedation as tolerated. Pulmonary following. Plan of care discussed with bedside RN. 02/20: Patient seen and examined at bedside. She remains intubated and sedated. No major clinical changes. Continue current treatment. Pulmonary following. Plan of care discussed with bedside RN. 02/21: Patient seen and examined at bedside. Remains intubated and sedated date and admission clinical changes. Increase free water flushes today due to hypernatremia. Plan of care discussed with bedside nurse. 02/22: Patient seen and examined at bedside. O2 requirement actually improving, although remains intubated. Possible SBT in the coming days. Hypernatremia improving. Plan of care discussed bedside RN. 02/23: Patient remains in ICU on ventilator with FiO2 100%, PEEP 7. Repeat chest x-ray yesterday showed diffuse bilateral pulmonary opacities with no interval improvement. Will discontinue Rocephin and initiate Zosyn. We will continue IV steroids for a full 10-day course 02/24: Afebrile. On vent with FiO2 40%, PEEP 6. Her Coreg has been held due to persistent bradycardia. No documented history of systolic heart failure or previous echocardiogram. Will need to obtain echocardiogram prior to discharge. Continue IV steroids and antibiotics. 02/25: Afebrile. Remains ventilated with FiO2 45%, PEEP 6. Chest x-ray today showed slight improvement of the pulmonary infiltrates, no pneumothorax. Completed 10-day course of IV Decadron. Will initiate slow Solu-Medrol taper. Continue IV Zosyn. Continue supportive care. 02/26: Afebrile. On vent with FiO2 45%, PEEP 6. Completed 10 days of IV Decadron. Will continue IV Zosyn. Continue supportive care. Critical care time 30 minutes spent reviewing charts, reviewing imaging, reviewing labs, discussion with RN. 02/27: Afebrile. On vent with FiO2 45%, PEEP 6. Completed 10 days of steroids and completed remdesivir. Continue with IV Zosyn. CPAP trial yesterday. Continue NG tube and supportive care. 02/28:. Patient remains on vent with FiO2 40%, PEEP 5. Afebrile. Completed steroids and remdesivir. Some noted hypoglycemia overnight, will de-escalate basal insulin. Continue IV Zosyn. Ventilator management per pulmonology. Continue NG tube and supportive care. 03/01: On vent with FiO2 40%, PEEP 5. Afebrile. Completed steroids and remdesivir. Blood glucose well controlled. Continue empiric antibiotics with Zosyn. Ventilator management per pulmonology. Continue NG tube and supportive care. 03/02: No acute events overnight. Patient hypotensive the morning due to oversedation. Will wean off sedation and keep antihypertensive medications on board. Currently saturating 100% on vent settings of 18/450/40/5. Will attempt spontaneous breathing trial today to see how patient does. 03/03: No acute events overnight. Patient saturating 98% on vent settings of 18/450/40/5. Will defer spontaneous breathing trials to pulmonary at this time. Patient's chart, labs, images were reviewed and discussed with RN 8: No acute events overnight. Patient saturating 9 9% on vent settings of 18/450/30/5. Patient currently is unable to tolerate weaning. Per pulmonary. Patient's chart, labs, images were reviewed and discussed with RN 03/05: No acute events overnight. Patient is saturating 97% on vent settings of 18/450/55/5. Her FiO2 needs to be increased due to abnormal ABG with 7.3 //24. Patient's chart, labs, images were reviewed and discussed with RN 8: No acute events overnight. Patient saturating 94% on vent settings of 18/450/55/5. Chest x-ray showing increase in pulmonary infiltrates. Wound care is consulted for decubitus ulcer patient's chart, labs, images were reviewed and discussed with RN 03/07: No acute events overnight. Patient saturating 94% on vent settings of 20/450/70/8. Patient now heading into renal failure with her creatinine bumped up from 1.5-4.2. Decreased urine output. Plan for hemodialysis today and temporary catheter placement and nephrology is consulted. 03/08: No acute events overnight. Patient did have a nausea vomiting episode and tube feeds were held. KUB repeat shows NG tube still in the stomach. Will resume tube feeds at trickle and advance to goal today. Will start hemodialysis soon. 03/09: Seen on vent 20/450/60%/8. ABG 7.2 WBC 11.4, Hb 7.4, platelets 188, NA 131, K4.9, BUN 48, CR 51, glucose 199, phosphorus 7.9, mag 2.2, AST 265 ALT 219, albumin 1.1. Chest radiograph appears unchanged from prior. Dialysis x1 today 03/10: Afebrile. Seen on vent, 20/450/60/7 with ABG 7.3 . Tolerated dialysis well on 03/09. LFTs similar. 03/11: Afebrile. Seen on vent, sedated. Still requiring Levophed for BP support. WBC 16.7, Hb 8.1, NA 130, ABG 7.3 on 55% FiO2 PEEP 6. On Zosyn and Zyvox Diflucan. Dialysis today 03/12: Afebrile. Still requiring Levophed for BP support sedated with Versed febrile Precedex. WBC 16.1, Hb 8.5, platelets 185, NA 133. Trach plan tentatively 03/17. O2 saturations 93% on 50% FiO2 PEEP 6. ABG 7. On Zosyn and Zyvox Diflucan. 03/13: Afebrile. Still on Levophed for BP support lightly sedated. 7. on 45% FiO2. Plan for dialysis today. On Zosyn and Zyvox Diflucan. More swollen today. 03/14: Afebrile. Weaning down off Levophed. WBC 14.9 NA 132. O2 saturations 92% on 45% FiO2 PEEP 5. Afebrile. O2 saturations 91% on FiO2 45% PEEP 6. Continued on Zosyn and Zyvox Diflucan. Tentative trach planned 03/17/2021 CC time 31 minutes 03/16/21: Patient seen and examined in ICU. Periorbital as well as upper and lower extremity edema noted. OG feed running at 30cc/hr. Still on vent on pressure control with a rate of 24 with 45% FiO2. Patient has rectal bag. Currently she has 98% O2 sat. Currently sedated with Dexmedetomidine, Propofol, Versed, and Fentanyl. Discussed with RN. Chart reviewed. 03/17/21: Patient was seen and examined in the ICU today. Periorbital edema as well as abdominal and mons pubis edema was noted. Patient still on vent on pressure control with Fi02 of 45% plus 6 PEEP. Patient had rectal bag. Currently sedated on Dexmedetomidine, Propofol, Versed, and Fentanyl. Discussed with RN. Chart reviewed. 03/18/21: Patient seen and examined in ICU. On vent via trach that was placed yesterday. Vent settings are Pressure Control of 40 with FiO2 of 45% and 6 PEEP. Trach clean and dry. Orbital swelling still present. Pupils are sluggish. Patient on TPN running at 30cc/hr. Kern to bedside and rectal bag in place. Current O2 sat at 94%. Sedated on Dexmedetomidine, Propofol, Versed, and Fentanyl. Discussed with RN. Chart reviewed. 03/19/21: Patient was seen and examined in the ICU today. Currently on vent via trach on pressure control of 42, rate of 24, FiO2 of 45%, and 6 PEEP. O2 sat is at 97% while patient is being examined. Trach is clean and dry. PICC line is in place on right arm. Periorbital swelling has decreased slightly since examined yesterday. Patient is sedated on Dexmedetomidine, Propofol, Versed, and Fentanyl. Discussed with RN. Chart reviewed. 03/20/21: Patient seen and examined in the ICU. Periorbital edema is slightly decreased since yesterday. O2 sat while being examined was 93%. NG tube in place and running at 30cc/hr. Patient on vent via trach on pressure control of 40 with FiO2 of 45 and rate of 24. Sedated on Dexmedetomidine, Propofol, Versed, and Fentanyl. PICC line in place. Kern to bedside. Rectal bag present. Discussed with RN. Chart reviewed. 03/21/21: Patient was seen and examined in the ICU today. She was semi-sedated.. She was on Dexmedetomidine and Fentanyl. We are holding the Propofol. Her eyes were periodically open but she was not making meaningful eye contact or tracking. On vent via trach with pressure control of 40 and FiO2 at 45. Rate was 24. PEEP was 5. Trach was clean and dry. While being examined, her O2 sat was 94%. Rectal bag and Kern to bedside in place. NG tube in place and feeding at 30cc/hr. IV fluids still running. Levophed has been stopped. Discussed with RN. Chart reviewed. 03/22/21: Patient was seen and examined in the ICU. She was semi-sedated on Propofol and Dexmedetomidine. Her eyes were open but she did not make meaningful eye contact. Her blood pressure was elevated (198/102) while being examined and she had just been given hydralazine to lower it. There are plans to place a PEG tube tomorrow. Currently on vent via trach on pressure control of 40 with FiO2 of 45%, 5 PEEP, and a rate of 24. Current O2 sat is 98%. She is feeding through an NG tube at 30cc/hr. Rectal bag and Kern to bedside present. SCDs on patient for DVT prophylaxis. She did not do her daily dialysis today but the plan is to start back on that tomorrow. Discussed with RN. Chart reviewed. 03/23/2021: Patient remains in ICU on ventilator. FiO2 40%, PEEP 5. Trach cultures positive for [place] albicans and acinebacter ursungi. We will continue treatment with IV antibiotics and micafungin, per ID. HD per nephrology. Plans for PEG tube placement today. 30 minutes critical care time was spent reviewing charts, reviewing labs, reviewing imaging, discussion with RN. 03/24/2021: Afebrile. On vent with FiO2 45%, PEEP 5. Had attempted PEG placement per GI yesterday, but unable to locate safe path for PEG; will consider surgical opinion. Once PEG is in place she should be stable for LTAC transfer when accepted. Continue antibiotics, per ID. 30 minutes critical care time was spent reviewing charts, reviewing labs, reviewing imaging, discussion with RN. 03/25/2021: Febrile overnight with T-max 101.5 F. On vent with FiO2 45%, PEEP 5. Surgery has been consulted with tentative plans for laparoscopic versus open gastrostomy placement tomorrow. Trach cultures positive for [place] albicans and now acinebacter ursungi; will continue antibiotic management, per ID. Hemodialysis, per nephrology. Patient needing LTAC placement, but currently without benefits. trolley worker following for discharge planning. Critical care time 30 minutes spent reviewing charts, reviewing labs, reviewing imaging, discussion with RN. 03/26/2021: Febrile today with T-max 100.5 F. Awake on vent with FiO2 45%, PEEP 5. When I ask if she remembers any she nods. G-tube placement scheduled for tomorrow, per general surgery. Chest x-ray today showed slight interval increase in diffuse infiltrate. Continue antibiotic management, per ID. Hemodialysis per nephrology. Reportedly did not tolerate CPAP trial this morning. trolley worker following for LTAC placement. Critical care time 30 minutes spent reviewing charts, reviewing labs, reviewing imaging, discussion with RN. 03/27/2021: Afebrile. On vent with FiO2 45%, PEEP 5. Afebrile today. Continue treatment of acute renal failure requiring HD, per nephrology. Monitor kidney function for recovery. G-tube placement scheduled for today, per general surgery. Likely LTAC placement soon, but this is been a difficult as she is self-pay without benefits; aids social worker following. Critical care time 30 minutes spent reviewing charts, reviewing labs, reviewing imaging, discussion with RN. Vitals/I&O Vitals/I&O: Vital Signs Date Time Temp Pulse Resp B/P (MAP) Pulse Ox O2 Delivery O2 Flow Rate FiO2 03/27/21 07:03 24 99 Ventilator 03/27/21 07:00 56 157/76 (103) 03/27/21 06:00 96.6 96.6 I & O 03/26/21 03/26/21 03/27/21 15:00 23:00 07:00 Intake Total 0 ml 607 ml 208 ml Output Total 45 ml 75 ml 125 ml Balance -45 ml 532 ml 83 ml Physical Exam Physical Exam: GENERAL: Intubated and sedated. Trach HEENT: Normocephalic, atraumatic. Anicteric. Slight bilateral periorbital edema. Neck right IJ HDC clean LUNGS: Rhonchi. HEART: S1, S2. No murmurs. ABDOMEN: Obese, soft. Bowel sounds present. Nontender, nondistended. Abdominal and mons pubis edema noted. GENITOURINARY: Kern and fecal tube in place. EXTREMITIES: Edema present no cyanosis. CENTRAL NERVOUS SYSTEM: Intubated. PSYCHIATRIC: Unable to assess. Derm has pressure wounds wound pictures noted in chart. Generalized rash, PICC line , right IJ HDC clean General: No acute distress Heart: Regular rate, Normal S1, Normal S2, No murmurs, Gallops Lungs: Crackles, Other (On vent with trach collar in place) Abdomen: Soft, No tenderness Extremities: Other (ANASARCA) Skin: No rashes, No significant lesion Labs Labs: Laboratory Tests Test 03/26/21 11:50 03/26/21 17:50 03/27/21 00:08 03/27/21 05:45 Glucose (Fingerstick) 174 mg/dL (70-99) 141 mg/dL (70-99) 183 mg/dL (70-99) Sodium Level 135 mmol/L (136-145) Potassium Level 3.2 mmol/L (3.5-5.1) Chloride Level 98 mmol/L (98-107) Carbon Dioxide Level 27 mmol/L (21-32) Anion Gap 10 (6-14) Blood Urea Nitrogen 33 mg/dL (7-20) Creatinine 4.6 mg/dL (0.6-1.0) Estimated GFR (Cockcroft-Gault) 10.3 Glucose Level 158 mg/dL (70-99) Calcium Level 8.8 mg/dL (8.5-10.1) Test 03/27/21 06:40 Glucose (Fingerstick) 149 mg/dL (70-99) Assessment and Plan Assessmemt and Plan Problems Medical Problems: (1) Ketoacidosis Status: Acute Comment Review of Relevant I have reviewed the following items mazin (where applicable) has been applied. Medications: Current Medications Medications (Trade) Dose Ordered Sig/Pepe Route PRN Reason Start Time Stop Time Status Last Admin Dose Admin Furosemide (Lasix) 40 mg 1X ONCE IVP 03/26/21 10:00 03/26/21 10:01 DC 03/26/21 09:54 Justifications for Admission Other Justification SANDI ALCARAZ MD Mar 27, 2021 08:02
[2021-03-27 09:16] LABS: BASO % 1 % (0-3); EOS # 1.7 x10^3/uL (0.0-0.7); EOS % 27 % (0-3); HEMATOCRIT 27.1 % (36.0-47.0); HEMOGLOBIN 9.2 g/dL (12.0-15.5); LYMPH # 1.4 x10^3/uL (1.0-4.8); LYMPH % 23 % (24-48); MEAN CORPUSCULAR HEMOGLOBIN 30 pg (25-35); MEAN CORPUSCULAR HGB CONC 34 g/dL (31-37); MEAN CORPUSCULAR VOLUME 88 fL (79-100); MONO # 0.4 x10^3/uL (0.0-1.1); MONO % 6 % (0-9); NEUT # 2.7 x10^3/uL (1.8-7.7); NEUT % 43 % (31-73); PLATELET COUNT 211 x10^3/uL (140-400); RED BLOOD COUNT 3.09 x10^6/uL (3.50-5.40); RED CELL DISTRIBUTION WIDTH 15.2 % (11.5-14.5); WHITE BLOOD COUNT 6.2 x10^3/uL (4.0-11.0)
[2021-03-27] MEDS ORDERED: DIALYSIS PATIENT. MC PRN ×2 (09:45)
--- NOTE | 2021-03-27 10:00 | PDOC ---
PULMONARY PROGRESS NOTES DATE: 03/27/21 TIME: 09:57 Subjective Patient had increased work of breathing this morning while on CPAP trial. Rested back on assist control mode. no overnight concerns On Precedex. Off sedation Bedside PEG could not be placed. Surgical PEG is scheduled for today Vitals Vital Signs Date Time Temp Pulse Resp B/P (MAP) Pulse Ox O2 Delivery O2 Flow Rate FiO2 03/27/21 09:00 55 24 183/89 (120) 99 Ventilator 03/27/21 08:00 99.0 99.0 General: Alert, No acute distress Lungs: Crackles, Other (On vent with trach collar in place) Cardiovascular: S1 Abdomen: Soft Skin: Warm Labs Laboratory Tests Test 03/25/21 16:38 03/26/21 00:27 03/26/21 06:21 03/26/21 07:15 Glucose (Fingerstick) 122 mg/dL (70-99) 145 mg/dL (70-99) 153 mg/dL (70-99) O2 Saturation 91 % (92-99) Arterial Blood pH 7.50 (7.35-7.45) Arterial Blood pCO2 at Patient Temp 34 mmHg (35-46) Arterial Blood pO2 at Patient Temp 60 mmHg (75-108) Arterial Blood HCO3 26 mmol/L (21-28) Arterial Blood Base Excess 3 mmol/L (-3-3) FiO2 45% vent Test 03/26/21 11:50 03/26/21 17:50 03/27/21 00:08 03/27/21 05:45 Glucose (Fingerstick) 174 mg/dL (70-99) 141 mg/dL (70-99) 183 mg/dL (70-99) Sodium Level 135 mmol/L (136-145) Potassium Level 3.2 mmol/L (3.5-5.1) Chloride Level 98 mmol/L (98-107) Carbon Dioxide Level 27 mmol/L (21-32) Anion Gap 10 (6-14) Blood Urea Nitrogen 33 mg/dL (7-20) Creatinine 4.6 mg/dL (0.6-1.0) Estimated GFR (Cockcroft-Gault) 10.3 Glucose Level 158 mg/dL (70-99) Calcium Level 8.8 mg/dL (8.5-10.1) Test 03/27/21 06:40 03/27/21 09:00 Glucose (Fingerstick) 149 mg/dL (70-99) White Blood Count 6.2 x10^3/uL (4.0-11.0) Red Blood Count 3.09 x10^6/uL (3.50-5.40) Hemoglobin 9.2 g/dL (12.0-15.5) Hematocrit 27.1 % (36.0-47.0) Mean Corpuscular Volume 88 fL (79-100) Mean Corpuscular Hemoglobin 30 pg (25-35) Mean Corpuscular Hemoglobin Concent 34 g/dL (31-37) Red Cell Distribution Width 15.2 % (11.5-14.5) Platelet Count 211 x10^3/uL (140-400) Neutrophils (%) (Auto) 43 % (31-73) Lymphocytes (%) (Auto) 23 % (24-48) Monocytes (%) (Auto) 6 % (0-9) Eosinophils (%) (Auto) 27 % (0-3) Basophils (%) (Auto) 1 % (0-3) Neutrophils # (Auto) 2.7 x10^3/uL (1.8-7.7) Lymphocytes # (Auto) 1.4 x10^3/uL (1.0-4.8) Monocytes # (Auto) 0.4 x10^3/uL (0.0-1.1) Eosinophils # (Auto) 1.7 x10^3/uL (0.0-0.7) Basophils # (Auto) 0.0 x10^3/uL (0.0-0.2) Laboratory Tests Test 03/26/21 11:50 03/26/21 17:50 03/27/21 00:08 03/27/21 05:45 Glucose (Fingerstick) 174 mg/dL (70-99) 141 mg/dL (70-99) 183 mg/dL (70-99) Sodium Level 135 mmol/L (136-145) Potassium Level 3.2 mmol/L (3.5-5.1) Chloride Level 98 mmol/L (98-107) Carbon Dioxide Level 27 mmol/L (21-32) Anion Gap 10 (6-14) Blood Urea Nitrogen 33 mg/dL (7-20) Creatinine 4.6 mg/dL (0.6-1.0) Estimated GFR (Cockcroft-Gault) 10.3 Glucose Level 158 mg/dL (70-99) Calcium Level 8.8 mg/dL (8.5-10.1) Test 03/27/21 06:40 03/27/21 09:00 Glucose (Fingerstick) 149 mg/dL (70-99) White Blood Count 6.2 x10^3/uL (4.0-11.0) Red Blood Count 3.09 x10^6/uL (3.50-5.40) Hemoglobin 9.2 g/dL (12.0-15.5) Hematocrit 27.1 % (36.0-47.0) Mean Corpuscular Volume 88 fL (79-100) Mean Corpuscular Hemoglobin 30 pg (25-35) Mean Corpuscular Hemoglobin Concent 34 g/dL (31-37) Red Cell Distribution Width 15.2 % (11.5-14.5) Platelet Count 211 x10^3/uL (140-400) Neutrophils (%) (Auto) 43 % (31-73) Lymphocytes (%) (Auto) 23 % (24-48) Monocytes (%) (Auto) 6 % (0-9) Eosinophils (%) (Auto) 27 % (0-3) Basophils (%) (Auto) 1 % (0-3) Neutrophils # (Auto) 2.7 x10^3/uL (1.8-7.7) Lymphocytes # (Auto) 1.4 x10^3/uL (1.0-4.8) Monocytes # (Auto) 0.4 x10^3/uL (0.0-1.1) Eosinophils # (Auto) 1.7 x10^3/uL (0.0-0.7) Basophils # (Auto) 0.0 x10^3/uL (0.0-0.2) Medications Active Scripts Medications Dose Route/Sig Max Daily Dose Days Date Category Novolog Flexpen (Insulin Aspart) 100 Unit/1 Ml Insuln.pen 3-7 SQ TIDACHC 02/07/21 Reported Lisinopril 5 Mg Tablet 1 Tab PO DAILY 02/07/21 Reported Lantus Solostar (Insulin Glargine,Hum.rec.anlog) 100 Unit/1 Ml Insuln.pen 5 Unit SQ QHS 04/09/15 Reported Atorvastatin Calcium 40 Mg Tablet 40 Mg PO HS 04/09/15 Reported Comments Chest x-ray reviewed 03/26/2021. Unchanged bilateral diffuse interstitial infiltrates 03/20/21 CXR IMPRESSION: Continued presence of diffuse pulmonary opacities bilaterally without interval improvement. Impression . IMPRESSION: 1. Acute hypoxic respiratory failure secondary to COVID-19 viral pneumonia/acute lung injury and early acute respiratory distress syndrome. S/P intubation 02/17/21. Status post tracheostomy. 2. Nonsmoker. 3. Abnormal chest x-ray consistent with COVID-19 viral pneumonia.--- No significant change 4. Diabetic ketoacidosis--resolved 5. Underlying obesity contributing to hypoxia as well. 6. BOB . hemodialysis started 03/07 7. Fever, per ID--resolved 8. Abnormal chest x-ray with diffuse interstitial infiltrates compatible with viral pneumonia 9. [place] in the sputum is a contamination 10. Septic shock--resolved Plan . Updated 03/27/21 Continue daily pressure support trials. Will use higher pressure support for improved compliance. Surgical PEG tube is a schedule today. Currently on Precedex drip. As needed Lasix Follow CXR/ABG Follow nephrology recs Monitor HBG , follow GI recs Follow ID recs for ABX Hemodialysis per renal DVT/GI PPX D/W RN and RT Updated 03/26/21 Continue daily pressure support trials. Will use higher pressure support for improved compliance. Likely trial of trach shield trial, once down to pressure support of 10. Patient received 1 dose of Lasix today to see an improvement in her oxygenation Surgery consulted for surgical PEG. Scheduled for Tuesday Currently on Precedex drip. Follow CXR/ABG Follow nephrology recs Monitor HBG , follow GI recs Follow ID recs for ABX DVT/GI PPX D/W RN and RT Updated 03/25/21 Continue daily pressure support trials. Currently on pressure support of 16. We will wean the pressure support down to 10. Likely trial of trach shield in the next 24 hours Surgery consulted for surgical PEG. Currently on Precedex drip. Follow CXR/ABG Follow nephrology recs Monitor HBG , follow GI recs Follow ID recs for ABX DVT/GI PPX D/W RN and RT Updated 03/24/21 Continue current vent support, currently on 40% FiO2 and volume control mechanical ventilation. We will try CPAP trials. Surgery consulted for surgical PEG. Currently on Precedex drip. Follow CXR/ABG Follow nephrology recs Monitor HBG , follow GI recs Follow ID recs for ABX DVT/GI PPX D/W RN and RT Updated 03/23/21 Continue current vent support, currently on 45% in PC mode. We will ask respiratory to switch her to volume control mode. Will monitor peak airway pressures. Currently on Precedex drip. Follow CXR/ABG Follow nephrology recs Monitor HBG , follow GI recs Follow ID recs for ABX DVT/GI PPX D/W RN and RT PEG tube is a scheduled for today and after that she should be stable for LTAC transfer once accepted Updated 03/22/21 Continue current vent support, currently on 45% in PC mode. We will ask respiratory to switch her to volume control mode in a.m. Did not tolerated coming off sedation well with increasing blood pressure. Currently on low-dose fentanyl and Precedex drip. Follow CXR/ABG Follow nephrology recs Monitor HBG , follow GI recs Follow ID recs for ABX DVT/GI PPX D/W RN and RT PEG tube is a scheduled for tomorrow and after that she should be stable for LTAC transfer Updated 03/21/21 Continue current vent support, currently on 45% in PC mode Discontinue sedation and assess mental status. Once more awake CPAP trial. Follow CXR/ABG Follow nephrology recs Monitor HBG , follow GI recs Follow ID recs for ABX DVT/GI PPX D/W RN and RT Updated 03/20/21 Continue current vent support, currently on 45% in PC mode will reduce to 40% and change to 1:2 IE ratio Reduce sedation and assess mental status Follow CXR/ABG Follow nephrology recs Monitor HBG , follow GI recs Follow ID recs for ABX DVT/GI PPX D/W RN and RT Updated 03/[address] Whitley On exam she appears to be less puffy Finish course of remdesivir and dexamethasone Hemodialysis DVT GI prophylaxis Off pressors Chest x-ray reviewed, no significant change, 03/18 updated 03/18 Continue current mechanical support Hemodialysis per Dr. Sims Nutritional support DVT GI prophylaxis EMILY POSADA MD Mar 27, 2021 10:00
[2021-03-27] MEDS ORDERED: BUPIVACAINE-EPI 0.5% 30 ML VIAL KIT. ONE (10:05)
--- NOTE | 2021-03-27 10:43 | PDOC ---
DATE OF SERVICE DATE: 03/27/21 TIME: 10:40 SUBJECTIVE ROS Awake on Vent ,has tracheostomy OBJECTIVE Vital Signs Vital Signs Date Time Temp Pulse Resp B/P (MAP) Pulse Ox O2 Delivery O2 Flow Rate FiO2 03/27/21 10:00 61 24 150/81 (104) 99 Ventilator 03/27/21 08:00 99.0 99.0 I & 0 Intake and Output 03/27/21 07:00 Intake Total 815 ml Output Total 245 ml Balance 570 ml IV Total 394 ml Tube Feeding 421 ml Output Urine Total 245 ml PHYSICAL EXAM Physical Exam GENERAL: On vent, awake HEENT: Anicteric. . Neck Trach+ LUNGS: decreased at bases HEART: S1, S2. No murmurs. ABDOMEN: Obese, soft. Bowel sounds present. GENITOURINARY: Kern and rectal tube in place. EXTREMITIES: Edema present no cyanosis. CENTRAL NERVOUS SYSTEM: awake, on vent PSYCHIATRIC: Unable to assess. DERM has pressure wounds DIAGNOSIS/ASSESSMENT Assessment & Plan BOB-ATN- [place] anuric , requiring dialysis., currently on MWF schedule, seen during treatment , tolerating well, Continue as ordered, Lance López Supportive care, I/O avoid nephrotoxins, Monitor for recovery .Access temp HDC HypoNatremia - mild HypoKalemia - Mild, adjust K in dialysate DM 2 - Glucosuria + POA COVID 19 Pneumonia - Unvaccinated Acute Resp Failure- Intubated , CxR 03/20- Continued presence of diffuse pulmonary opacities bilaterally without interval improvement. HTN antihypertensives Anemia -avoid DOYLE 2/2 to Thrombogenic state COMMENT/RELEVANT DATA Meds Current Medications Medications (Trade) Dose Ordered Sig/Pepe Start Time Stop Time Status Last Admin Dose Admin Acetaminophen (Tylenol Supp) 650 mg PRN Q6HRS PRN 02/08/21 01:45 02/17/21 10:45 DC Acetaminophen (Tylenol) 500 mg 1X PRN PRN 03/17/21 13:30 03/18/21 13:29 DC Albumin Human 200 ml @ 200 mls/hr 1X PRN PRN 03/25/21 12:30 03/25/21 18:29 DC Albuterol Sulfate (Ventolin Hfa) 60 puff STK-MED ONCE 03/17/21 11:29 03/17/21 11:29 DC Alteplase, Recombinant (Cathflo For Central Catheter Clearance) 1 mg 1X ONCE 02/27/21 14:30 02/27/21 14:36 DC 02/27/21 15:19 1 MG Alteplase, Recombinant (Cathflo) 2 mg 1X ONCE 02/27/21 11:00 02/27/21 11:01 DC 02/27/21 11:20 2 MG Amlodipine Besylate (Norvasc) 5 mg DAILY 02/24/21 09:00 03/09/21 10:43 DC 02/27/21 09:10 5 MG Atorvastatin Calcium (Lipitor) 40 mg HS 02/08/21 21:00 03/26/21 21:10 40 MG Atropine Sulfate (ATROPINE 0.5mg SYRINGE) 0.5 mg PRN Q5MIN PRN 02/16/21 12:00 Azithromycin 250 mg/Sodium Chloride 250 ml @ 250 mls/hr Q24H 02/14/21 13:30 02/18/21 14:29 DC 02/18/21 11:51 250 MLS/HR Benzonatate (Tessalon Perle) 100 mg [id number] 02/10/21 23:30 02/17/21 10:45 DC 02/16/21 22:07 100 MG Bupivacaine HCl/ Epinephrine Bitart (Sensorcain-Epi 0.5% Kit) 30 ml STK-MED ONCE 03/27/21 10:05 03/27/21 10:05 DC Bupivacaine HCl/ Epinephrine Bitart (Sensorcain-Epi 0.5%-1:213308 Mpf) 30 ml STK-MED ONCE 03/17/21 10:47 03/17/21 10:47 DC Carvedilol (Coreg) 6.25 mg BIDWMEALS 02/08/21 20:30 02/23/21 15:50 DC 02/23/21 08:06 6.25 MG Cefazolin Sodium/ Dextrose (Ancef 2gm Premix) 2 gm STK-MED ONCE 03/23/21 13:00 03/24/21 11:58 DC Ceftriaxone Sodium (Rocephin) 1 gm Q24H 02/14/21 13:00 02/23/21 07:34 DC 02/22/21 12:42 1 GM Cellulose (Surgicel Fibrillar 1x2) 1 each STK-MED ONCE 03/17/21 10:47 03/17/21 10:47 DC 03/17/21 11:56 1 EACH Daptomycin 480 mg/ Sodium Chloride 50 ml @ 100 mls/hr QMWF 03/23/21 16:00 03/26/21 10:29 DC 03/25/21 19:52 100 MLS/HR Dexamethasone Sodium Phosphate (Decadron) 2 mg 1X ONCE 02/27/21 09:00 02/26/21 07:15 DC Dexmedetomidine HCl 400 mcg/ Sodium Chloride 100 ml @ 0 mls/hr CONT PRN 02/27/21 09:45 03/27/21 08:43 17.4 MLS/HR Dextrose (Dextrose 50%-Water Syringe) 12.5 gm PRN Q15MIN PRN 03/01/21 13:00 03/01/21 12:55 12.5 GM Diphenhydramine HCl (Benadryl) 25 mg 1X PRN PRN 03/17/21 13:30 03/18/21 13:29 DC Docusate Sodium (Colace Solution) 100 mg BID 02/23/21 12:00 03/26/21 21:10 100 MG Docusate Sodium (Colace) 100 mg PRN DAILY PRN 02/07/21 08:45 02/23/21 10:47 DC Enalaprilat (Vasotec Inj) 0.625 mg Q6HRS 02/08/21 16:15 02/09/21 16:01 DC 02/09/21 13:42 0.625 MG Enoxaparin Sodium (Lovenox 30mg Syringe) 30 mg Q24H 03/08/21 09:00 03/12/21 15:38 DC 03/12/21 09:04 30 MG Enoxaparin Sodium (Lovenox 40mg Syringe) 40 mg BID 02/09/21 09:00 03/08/21 13:56 DC 03/08/21 08:26 40 MG Enoxaparin Sodium (Lovenox Per Pharmacy Prophylaxis Dosing) 1 each PRN DAILY PRN 02/09/21 06:45 03/12/21 15:38 DC Ephedrine Sulfate (ePHEDrine PF IN SALINE SYRINGE) 50 mg STK-MED ONCE 03/17/21 10:56 03/17/21 10:56 DC Famotidine (Pepcid Vial) 20 mg DAILY 03/10/21 09:00 03/27/21 07:34 20 MG Fentanyl Citrate (Fentanyl 2ml Vial) 50 mcg PRN Q5MIN PRN 03/27/21 06:00 03/28/21 05:59 Fluconazole/ Sodium Chloride 100 ml @ 100 mls/hr Q24H 03/07/21 09:00 03/17/21 08:03 DC 03/16/21 08:29 100 MLS/HR Furosemide (Lasix) 40 mg 1X ONCE 03/26/21 10:00 03/26/21 10:01 DC 03/26/21 09:54 40 MG Glycerin/ Hypromellose/ Polyethylene (Artificial Tears) 1 drop PRN Q1HR PRN 02/17/21 10:00 Guaifenesin (Robitussin Dm) 10 ml PRN Q6HRS PRN 02/10/21 23:30 02/16/21 09:06 10 ML Haloperidol Lactate (Haldol Inj) 2.5 mg 1X ONCE 02/07/21 02:30 02/07/21 03:56 DC Heparin Sodium (Porcine) (Heparin Sodium) 5,000 unit Q8HRS 03/13/21 06:00 03/26/21 21:12 5,000 UNIT Hydralazine HCl (Apresoline Inj) 10 mg PRN Q4HRS PRN 02/11/21 12:15 03/27/21 06:37 10 MG Hydromorphone HCl (Dilaudid) 0.5 mg PRN Q10MIN PRN 03/27/21 06:00 03/28/21 05:59 Info (PHARMACY MONITORING -- do not chart) 1 each PRN DAILY PRN 03/27/21 09:45 UNV Insulin Glargine (Lantus Syringe) 5 unit BID 03/06/21 09:00 03/26/21 21:13 5 UNIT Insulin Human Lispro (HumaLOG) 12 units Q6HRS 02/20/21 12:00 02/28/21 15:38 DC 02/27/21 05:41 12 UNITS Insulin Human Regular 100 ml @ 10 mls/hr 1X ONCE 02/07/21 06:30 02/07/21 16:54 DC 02/07/21 09:31 6.5 MLS/HR Insulin Human Regular 100 unit/ Sodium Chloride 101 ml @ 0 mls/hr CONT PRN PRN 02/07/21 06:00 02/07/21 16:54 DC Labetalol HCl (Normodyne Iv Push) 10 mg PRN Q2HR PRN 02/08/21 00:45 03/26/21 21:14 10 MG Lactobacillus Rhamnosus (Culturelle) 1 cap BID 02/16/21 21:00 02/17/21 10:45 DC 02/16/21 22:02 1 CAP Lidocaine HCl (Buffered Lidocaine 1%) 3 ml STK-MED ONCE 03/07/21 13:25 03/07/21 13:25 DC Linezolid (Zyvox) 600 mg BID 03/05/21 09:00 03/12/21 07:00 DC 03/11/21 20:33 600 MG Linezolid/Dextrose 300 ml @ 300 mls/hr Q12HR 03/16/21 10:00 03/18/21 07:37 DC 03/17/21 21:44 300 MLS/HR Lisinopril (Prinivil) 20 mg DAILY 02/17/21 09:00 03/09/21 10:43 DC 02/27/21 09:10 20 MG Lorazepam (Ativan Inj) 0.5 mg PRN Q6HRS PRN 02/08/21 10:00 02/16/21 22:07 0.5 MG Meropenem 1 gm/ Sodium Chloride 100 ml @ 200 mls/hr Q24H 03/18/21 17:00 03/26/21 17:06 200 MLS/HR Methylprednisolone Sodium Succinate (SOLU-Medrol 125MG VIAL) 80 mg Q8HRS 02/25/21 09:00 02/26/21 07:09 DC 02/26/21 05:52 80 MG Metoclopramide HCl (Reglan Vial) 10 mg PRN Q6HRS PRN 02/08/21 00:45 02/12/21 15:51 10 MG Micafungin Sodium 100 mg/Dextrose 100 ml @ 100 mls/hr Q24H 03/21/21 18:00 03/25/21 10:27 DC 03/24/21 16:36 100 MLS/HR Midazolam HCl 100 ml @ 0 mls/hr CONT PRN 02/17/21 10:00 03/20/21 17:18 5 MLS/HR Morphine Sulfate (Morphine Sulfate) 1 mg PRN Q10MIN PRN 03/27/21 06:00 03/28/21 05:59 Multi-Ingred Cream/Lotion/Oil/ Oint (Artificial Tears Eye Ointment) 1 reji PRN Q1HR PRN 03/17/21 17:30 03/20/21 15:55 1 REJI Multivitamins/ Minerals Therapeutic (Centrum Multivit-Mineral Liq) 5 ml DAILY 03/14/21 09:00 03/26/21 09:32 5 ML Norepinephrine Bitartrate 8 mg/ Dextrose 258 ml @ 21.711 mls/ hr CONT PRN 03/06/21 13:45 03/19/21 18:45 23.3 MLS/HR Nystatin (Nystop) 1 reji BID 03/02/21 21:00 03/27/21 07:34 1 REJI Ondansetron HCl (Zofran Odt) 4 mg 1X ONCE 02/06/21 23:30 02/06/21 23:31 DC 02/06/21 23:57 4 MG Ondansetron HCl (Zofran) 4 mg 1X ONCE 02/07/21 20:00 02/07/21 20:07 DC 02/07/21 20:06 4 MG Phenylephrine HCl (PHENYLEPHRINE in 0.9% NACL PF) 1 mg STK-MED ONCE 03/17/21 10:56 03/17/21 10:56 DC Piperacillin Sod/ Tazobactam Sod (Zosyn Per Pharmacy) 1 each PRN DAILY PRN 02/23/21 07:45 03/17/21 10:04 DC Piperacillin Sod/ Tazobactam Sod 2.25 gm/Sodium Chloride 50 ml @ 100 mls/hr Q8HRS 03/07/21 14:00 03/17/21 08:03 DC 03/17/21 05:58 100 MLS/HR Piperacillin Sod/ Tazobactam Sod 3.375 gm/Sodium Chloride 50 ml @ 100 mls/hr Q6HRS 03/14/21 18:00 Cancel Piperacillin Sod/ Tazobactam Sod 4.5 gm/Sodium Chloride 100 ml @ 200 mls/hr Q6HRS 02/23/21 08:00 03/07/21 08:18 DC 03/07/21 06:12 200 MLS/HR Potassium Chloride/Water 100 ml @ 100 mls/hr PRN Q1HR PRN 02/07/21 06:00 02/07/21 16:54 DC Potassium Chloride (Klor-Con) 40 meq 1X ONCE 02/13/21 12:00 02/13/21 12:01 DC 02/13/21 13:21 40 MEQ Prochlorperazine Edisylate (Compazine) 5 mg PACU PRN PRN 03/27/21 06:00 03/28/21 05:59 Propofol 100 ml @ 0 mls/hr CONT PRN 02/17/21 10:00 03/27/21 08:44 13.9 MLS/HR Remdesivir 100 mg/ Sodium Chloride 230 ml @ 460 mls/hr Q24H 02/15/21 12:00 02/18/21 12:29 DC 02/18/21 11:52 460 MLS/HR Remdesivir 200 mg/ Sodium Chloride 210 ml @ 210 mls/hr 1X ONCE 02/11/21 13:00 02/12/21 11:55 DC 02/11/21 14:33 210 MLS/HR Ringer's Solution 1,000 ml @ 30 mls/hr Q24H 03/27/21 06:00 03/27/21 17:59 Rocuronium [place] (Zemuron) 50 mg STK-MED ONCE 03/17/21 11:39 03/17/21 11:39 DC Sennosides (Senna) 17.2 mg PRN BID PRN 02/07/21 08:45 02/22/21 08:29 17.2 MG Sevoflurane (Ultane) 30 ml STK-MED ONCE 03/17/21 12:20 03/17/21 12:20 DC Sodium Chloride 1,000 ml @ 400 mls/hr Q2H30M PRN 03/25/21 12:30 03/26/21 00:29 DC Sodium Chloride (Normal Saline Flush) 10 ml 1X PRN PRN 03/25/21 12:30 03/26/21 12:29 DC Succinylcholine Chloride (Anectine) 200 mg STK-MED ONCE 02/17/21 10:00 02/25/21 08:40 DC Vancomycin HCl (Vanco Per Pharmacy) 1 each PRN DAILY PRN 03/04/21 18:30 03/05/21 08:59 DC 03/04/21 19:47 1 EACH Vancomycin HCl (Vancomycin Trough Level) 1 each 1X ONCE 03/06/21 07:00 03/06/21 07:01 Cancel Vancomycin HCl 1.5 gm/Sodium Chloride 500 ml @ 250 mls/hr Q12H 03/05/21 07:30 03/05/21 08:58 DC Vancomycin HCl 1 gm/Sodium Chloride 250 ml @ 250 mls/hr Q12H 03/04/21 20:00 UNV Vancomycin HCl 2 gm/Sodium Chloride 500 ml @ 250 mls/hr 1X ONCE 03/04/21 19:00 03/04/21 20:59 DC 03/04/21 19:26 250 MLS/HR Vecuronium [place] (Norcuron Bolus) 6 mg PRN Q2HRS PRN 03/06/21 14:30 03/16/21 10:16 5 MG Vitamin A/Vitamin D (Vitamin A & D Ointment) 1 reji PRN Q1HR PRN 03/10/21 01:45 03/20/21 09:34 1 REJI Lab Laboratory Tests Test 03/26/21 11:50 03/26/21 17:50 03/27/21 00:08 03/27/21 05:45 Glucose (Fingerstick) 174 mg/dL (70-99) 141 mg/dL (70-99) 183 mg/dL (70-99) Sodium Level 135 mmol/L (136-145) Potassium Level 3.2 mmol/L (3.5-5.1) Chloride Level 98 mmol/L (98-107) Carbon Dioxide Level 27 mmol/L (21-32) Anion Gap 10 (6-14) Blood Urea Nitrogen 33 mg/dL (7-20) Creatinine 4.6 mg/dL (0.6-1.0) Estimated GFR (Cockcroft-Gault) 10.3 Glucose Level 158 mg/dL (70-99) Calcium Level 8.8 mg/dL (8.5-10.1) Test 03/27/21 06:40 03/27/21 09:00 Glucose (Fingerstick) 149 mg/dL (70-99) White Blood Count 6.2 x10^3/uL (4.0-11.0) Red Blood Count 3.09 x10^6/uL (3.50-5.40) Hemoglobin 9.2 g/dL (12.0-15.5) Hematocrit 27.1 % (36.0-47.0) Mean Corpuscular Volume 88 fL (79-100) Mean Corpuscular Hemoglobin 30 pg (25-35) Mean Corpuscular Hemoglobin Concent 34 g/dL (31-37) Red Cell Distribution Width 15.2 % (11.5-14.5) Platelet Count 211 x10^3/uL (140-400) Neutrophils (%) (Auto) 43 % (31-73) Lymphocytes (%) (Auto) 23 % (24-48) Monocytes (%) (Auto) 6 % (0-9) Eosinophils (%) (Auto) 27 % (0-3) Basophils (%) (Auto) 1 % (0-3) Neutrophils # (Auto) 2.7 x10^3/uL (1.8-7.7) Lymphocytes # (Auto) 1.4 x10^3/uL (1.0-4.8) Monocytes # (Auto) 0.4 x10^3/uL (0.0-1.1) Eosinophils # (Auto) 1.7 x10^3/uL (0.0-0.7) Basophils # (Auto) 0.0 x10^3/uL (0.0-0.2) Results All relevant outside records, renal labs, imaging studies, telemetry/EKG's were reviewed. Justicifation of Admission Dx: Justifications for Admission: Justification of Admission Dx: N/A GIGI CARMEN MD Mar 27, 2021 10:43
--- NOTE | 2021-03-27 11:03 | PDOC ---
Date of Service: DATE: 03/27/21 TIME: 11:01 Objective: Vital Signs: Vital Signs Date Time Temp Pulse Resp B/P (MAP) Pulse Ox O2 Delivery O2 Flow Rate FiO2 03/27/21 10:00 61 24 150/81 (104) 99 Ventilator 03/27/21 08:00 99.0 99.0 Labs: Laboratory Tests Test 03/26/21 11:50 03/26/21 17:50 03/27/21 00:08 03/27/21 05:45 Glucose (Fingerstick) 174 mg/dL 141 mg/dL 183 mg/dL Sodium Level 135 mmol/L Potassium Level 3.2 mmol/L Chloride Level 98 mmol/L Carbon Dioxide Level 27 mmol/L Anion Gap 10 Blood Urea Nitrogen 33 mg/dL Creatinine 4.6 mg/dL Estimated GFR (Cockcroft-Gault) 10.3 Glucose Level 158 mg/dL Calcium Level 8.8 mg/dL Test 03/27/21 06:40 03/27/21 09:00 Glucose (Fingerstick) 149 mg/dL White Blood Count 6.2 x10^3/uL Red Blood Count 3.09 x10^6/uL Hemoglobin 9.2 g/dL Hematocrit 27.1 % Mean Corpuscular Volume 88 fL Mean Corpuscular Hemoglobin 30 pg Mean Corpuscular Hemoglobin Concent 34 g/dL Red Cell Distribution Width 15.2 % Platelet Count 211 x10^3/uL Neutrophils (%) (Auto) 43 % Lymphocytes (%) (Auto) 23 % Monocytes (%) (Auto) 6 % Eosinophils (%) (Auto) 27 % Basophils (%) (Auto) 1 % Neutrophils # (Auto) 2.7 x10^3/uL Lymphocytes # (Auto) 1.4 x10^3/uL Monocytes # (Auto) 0.4 x10^3/uL Eosinophils # (Auto) 1.7 x10^3/uL Basophils # (Auto) 0.0 x10^3/uL BLOOD CULTURE Final NO GROWTH AFTER 5 DAYS PE: GEN: dialyzing, visual exam done LUNGS: trach/vent NEURO/PSYCH: resting A/P: COVID-19, resp failure s/p trach, BOB -- Plans for G-tube placement w/ surgery. Justicifation of Admission Dx: Justifications for Admission: Justification of Admission Dx: N/A JANELLE MONTENEGRO Mar 27, 2021 11:03
[2021-03-27] MEDS ORDERED: ROCURONIUM 50 MG/5 ML VIAL. ONE ×2 (11:05→13:16)
[2021-03-27] MEDS ORDERED: PROPOFOL 10 MG/ML (20ML) VIAL. IV ONE (12:02)
--- NOTE | 2021-03-27 12:44 | PDOC ---
SURGICAL PROGRESS NOTE DATE: 03/27/21 TIME: 12:42 Subjective 46 yo F with respiratory failure. TO OR for laparoscopic versus open gastrostomy tube placement. R/R/B/A d/w pt's via phone. Risks, including, but not limited to: bleeding, infection, damage to surrounding structures, risk of anesthesia. He appears to understand, his questions are answered and he elects to proceed. Vital Signs Vital Signs Date Time Temp Pulse Resp B/P (MAP) Pulse Ox O2 Delivery O2 Flow Rate FiO2 03/27/21 12:00 98.4 59 24 139/69 (92) 99 Ventilator 98.4 I&O Intake and Output 03/27/21 07:00 Intake Total 815 ml Output Total 245 ml Balance 570 ml IV Total 394 ml Tube Feeding 421 ml Output Urine Total 245 ml Labs Laboratory Tests Test 03/25/21 16:38 03/26/21 00:27 03/26/21 06:21 03/26/21 07:15 Glucose (Fingerstick) 122 mg/dL (70-99) 145 mg/dL (70-99) 153 mg/dL (70-99) O2 Saturation 91 % (92-99) Arterial Blood pH 7.50 (7.35-7.45) Arterial Blood pCO2 at Patient Temp 34 mmHg (35-46) Arterial Blood pO2 at Patient Temp 60 mmHg (75-108) Arterial Blood HCO3 26 mmol/L (21-28) Arterial Blood Base Excess 3 mmol/L (-3-3) FiO2 45% vent Test 03/26/21 11:50 03/26/21 17:50 03/27/21 00:08 03/27/21 05:45 Glucose (Fingerstick) 174 mg/dL (70-99) 141 mg/dL (70-99) 183 mg/dL (70-99) Sodium Level 135 mmol/L (136-145) Potassium Level 3.2 mmol/L (3.5-5.1) Chloride Level 98 mmol/L (98-107) Carbon Dioxide Level 27 mmol/L (21-32) Anion Gap 10 (6-14) Blood Urea Nitrogen 33 mg/dL (7-20) Creatinine 4.6 mg/dL (0.6-1.0) Estimated GFR (Cockcroft-Gault) 10.3 Glucose Level 158 mg/dL (70-99) Calcium Level 8.8 mg/dL (8.5-10.1) Test 03/27/21 06:40 03/27/21 09:00 03/27/21 11:12 Glucose (Fingerstick) 149 mg/dL (70-99) 106 mg/dL (70-99) White Blood Count 6.2 x10^3/uL (4.0-11.0) Red Blood Count 3.09 x10^6/uL (3.50-5.40) Hemoglobin 9.2 g/dL (12.0-15.5) Hematocrit 27.1 % (36.0-47.0) Mean Corpuscular Volume 88 fL (79-100) Mean Corpuscular Hemoglobin 30 pg (25-35) Mean Corpuscular Hemoglobin Concent 34 g/dL (31-37) Red Cell Distribution Width 15.2 % (11.5-14.5) Platelet Count 211 x10^3/uL (140-400) Neutrophils (%) (Auto) 43 % (31-73) Lymphocytes (%) (Auto) 23 % (24-48) Monocytes (%) (Auto) 6 % (0-9) Eosinophils (%) (Auto) 27 % (0-3) Basophils (%) (Auto) 1 % (0-3) Neutrophils # (Auto) 2.7 x10^3/uL (1.8-7.7) Lymphocytes # (Auto) 1.4 x10^3/uL (1.0-4.8) Monocytes # (Auto) 0.4 x10^3/uL (0.0-1.1) Eosinophils # (Auto) 1.7 x10^3/uL (0.0-0.7) Basophils # (Auto) 0.0 x10^3/uL (0.0-0.2) Laboratory Tests Test 03/26/21 17:50 03/27/21 00:08 03/27/21 05:45 03/27/21 06:40 Glucose (Fingerstick) 141 mg/dL (70-99) 183 mg/dL (70-99) 149 mg/dL (70-99) Sodium Level 135 mmol/L (136-145) Potassium Level 3.2 mmol/L (3.5-5.1) Chloride Level 98 mmol/L (98-107) Carbon Dioxide Level 27 mmol/L (21-32) Anion Gap 10 (6-14) Blood Urea Nitrogen 33 mg/dL (7-20) Creatinine 4.6 mg/dL (0.6-1.0) Estimated GFR (Cockcroft-Gault) 10.3 Glucose Level 158 mg/dL (70-99) Calcium Level 8.8 mg/dL (8.5-10.1) Test 03/27/21 09:00 03/27/21 11:12 White Blood Count 6.2 x10^3/uL (4.0-11.0) Red Blood Count 3.09 x10^6/uL (3.50-5.40) Hemoglobin 9.2 g/dL (12.0-15.5) Hematocrit 27.1 % (36.0-47.0) Mean Corpuscular Volume 88 fL (79-100) Mean Corpuscular Hemoglobin 30 pg (25-35) Mean Corpuscular Hemoglobin Concent 34 g/dL (31-37) Red Cell Distribution Width 15.2 % (11.5-14.5) Platelet Count 211 x10^3/uL (140-400) Neutrophils (%) (Auto) 43 % (31-73) Lymphocytes (%) (Auto) 23 % (24-48) Monocytes (%) (Auto) 6 % (0-9) Eosinophils (%) (Auto) 27 % (0-3) Basophils (%) (Auto) 1 % (0-3) Neutrophils # (Auto) 2.7 x10^3/uL (1.8-7.7) Lymphocytes # (Auto) 1.4 x10^3/uL (1.0-4.8) Monocytes # (Auto) 0.4 x10^3/uL (0.0-1.1) Eosinophils # (Auto) 1.7 x10^3/uL (0.0-0.7) Basophils # (Auto) 0.0 x10^3/uL (0.0-0.2) Glucose (Fingerstick) 106 mg/dL (70-99) Problem List Problems Medical Problems: (1) Ketoacidosis Status: Acute Justicifation of Admission Dx: Justifications for Admission: Justification of Admission Dx: N/A DANIEL ACHARYA MD Mar 27, 2021 12:44
[2021-03-27] MEDS ORDERED: fentaNYL PF VIAL 100 MCG/2 ML VIAL ONE (13:18)
[2021-03-27] MEDS ORDERED: PHENYLEPHRINE in 0.9% NACL PF 1 MG/10 ML SYRINGE. IV ONE (13:46)
[2021-03-27] MEDS ORDERED: NEOSTIGMINE METHYLSULFATE 5 MG/5 ML SYRINGE. ONE (14:06)
[2021-03-27] MEDS ORDERED: GLYCOPYRROLATE 1 MG/5 ML VIAL. ONE (14:07)
[2021-03-27] MEDS ORDERED: SEVOFLURANE 61 TO 120 MINUTES. IH ONE (14:19)
--- NOTE | 2021-03-27 14:25 | PDOC4 ---
OPERATIVE NOTE Date: Date: Mar 27, 2021 Pre-Op Diagnosis: Respiratory failure, need for enteral access Post-Op Diagnosis: same Procedure Performed: laparoscopic gastrostomy tube placement (23 F) Surgeon: Maico Acharya Anesthesia Type: GETA plus local Blood Loss: 50 Specimans Obtained: none Findings: normal anatomy, morbid obesity Complications: none Operative Note: After obtaining informed consent, patient was taken to OR, induced under GETA and prepped in the usual fashion. 5 mm ports placed umbilical and LUQ, 12 port placed epigastric, all under laparoscopic guidance. Abdominal cavity was explored and noted as above. Multiple 3 0 vicryls used to tack stomach to anterior abdominal wall. Gastrotomy created with cautery and gastrostomy introduced under laparoscopic guidance into stomach. Balloon inflated, noted in proper position and brought up to abdominal wall. Ports removed without bleeding. Skin repaired with 4 0 monocryl. 3 0 nylon used to secure gastrostomy. Dressing placed. Patient tolerated procedure well and sent to ICU in stable condition. All counts correct. Wound class is 3. DANIEL ACHARYA MD Mar 27, 2021 14:25
[2021-03-27] MEDS ORDERED: 0.9 % SODIUM CHLORIDE 10 ML DISP.SYRIN. IV PRN (14:30)
[2021-03-27] MEDS: IV NORMAL SALINE 1000ML BAG 1,000 ML IV SCH (14:30)
[2021-03-27] MEDS ORDERED: NALOXONE 0.4 MG/ML VIAL. IV PRN (14:30)
--- NOTE | 2021-03-27 15:06 | NUR ---
SS following up with discharge planning. SS reviewed pt chart and discussed with pt RN. Pt is currently on the vent at 45%. COVID19 recovered. Trach in place. Pt on Sub Q Heparin, Fentanyl, Propofol, and Precedex. Pt on IV Meropenem. Dr. Mills placed complex G-tube today. Self pay. [facility] following. Pt currently needing LTACH placement at this time, but currently has no benefits. Pt's spouse submitted signed paperwork to [employer] for Disability and Medicaid. SS will continue to follow for discharge planning.
[2021-03-27] MEDS: MEROPENEM 1 GM in IV NORMAL SALINE 100ML 100 ML IV SCH (17:07)
[2021-03-27] MEDS: ATORVASTATIN CALCIUM 40 MG TABLET. PO SCH (20:49)
[2021-03-28] VITALS (23 sets, daily range): BP systolic 112–197; BP diastolic 55–91
[2021-03-28] MEDS: PROPOFOL 100 ML IV PRN ×6 (00:07→21:14)
[2021-03-28] MEDS: DEXMEDETOMIDINE 400 MCG in IV NORMAL SALINE 100ML 96 ML IV PRN ×6 (03:47→19:51)
[2021-03-28] MEDS: INSULIN LISPRO 300 UNITS/3 ML VIAL. SQ SCH ×4 (05:52→19:50)
[2021-03-28] MEDS: HEPARIN for SUB-Q USE 5,000 UNIT/ML VIAL. SQ SCH ×3 (05:52→21:18)
[2021-03-28] MEDS: hydrALAZINE 20 MG/ML VIAL. IVP PRN (05:55)
[2021-03-28 06:06] LABS: BASO % 0 % (0-3); EOS # 2.3 x10^3/uL (0.0-0.7); EOS % 25 % (0-3); HEMATOCRIT 27.9 % (36.0-47.0); HEMOGLOBIN 9.5 g/dL (12.0-15.5); LYMPH # 1.4 x10^3/uL (1.0-4.8); LYMPH % 15 % (24-48); MEAN CORPUSCULAR HEMOGLOBIN 30 pg (25-35); MEAN CORPUSCULAR HGB CONC 34 g/dL (31-37); MEAN CORPUSCULAR VOLUME 87 fL (79-100); MONO # 0.9 x10^3/uL (0.0-1.1); MONO % 9 % (0-9); NEUT # 4.8 x10^3/uL (1.8-7.7); NEUT % 51 % (31-73); PLATELET COUNT 255 x10^3/uL (140-400); RED CELL DISTRIBUTION WIDTH 15.2 % (11.5-14.5); WHITE BLOOD COUNT 9.4 x10^3/uL (4.0-11.0)
--- NOTE | 2021-03-28 06:13 | PDOC ---
PULMONARY PROGRESS NOTES DATE: 03/28/21 TIME: 06:10 Subjective trach on assist control mode. sedated on fentanyl prop precedex small ett secretion s/p lap G-tube 03/27 Vitals Vital Signs Date Time Temp Pulse Resp B/P (MAP) Pulse Ox O2 Delivery O2 Flow Rate FiO2 03/28/21 05:55 100 Ventilator 03/28/21 05:55 59 187/77 03/28/21 04:00 24 03/27/21 23:00 99.2 99.2 Comments on vent sedated trach General: Alert, No acute distress Lungs: Crackles, Other (On vent with trach collar in place) Cardiovascular: S1 Abdomen: Soft, Non-tender Skin: Warm Labs Laboratory Tests Test 03/26/21 06:21 03/26/21 07:15 03/26/21 11:50 03/26/21 17:50 Glucose (Fingerstick) 153 mg/dL (70-99) 174 mg/dL (70-99) 141 mg/dL (70-99) O2 Saturation 91 % (92-99) Arterial Blood pH 7.50 (7.35-7.45) Arterial Blood pCO2 at Patient Temp 34 mmHg (35-46) Arterial Blood pO2 at Patient Temp 60 mmHg (75-108) Arterial Blood HCO3 26 mmol/L (21-28) Arterial Blood Base Excess 3 mmol/L (-3-3) FiO2 45% vent Test 03/27/21 00:08 03/27/21 05:45 03/27/21 06:40 03/27/21 09:00 Glucose (Fingerstick) 183 mg/dL (70-99) 149 mg/dL (70-99) Sodium Level 135 mmol/L (136-145) Potassium Level 3.2 mmol/L (3.5-5.1) Chloride Level 98 mmol/L (98-107) Carbon Dioxide Level 27 mmol/L (21-32) Anion Gap 10 (6-14) Blood Urea Nitrogen 33 mg/dL (7-20) Creatinine 4.6 mg/dL (0.6-1.0) Estimated GFR (Cockcroft-Gault) 10.3 Glucose Level 158 mg/dL (70-99) Calcium Level 8.8 mg/dL (8.5-10.1) White Blood Count 6.2 x10^3/uL (4.0-11.0) Red Blood Count 3.09 x10^6/uL (3.50-5.40) Hemoglobin 9.2 g/dL (12.0-15.5) Hematocrit 27.1 % (36.0-47.0) Mean Corpuscular Volume 88 fL (79-100) Mean Corpuscular Hemoglobin 30 pg (25-35) Mean Corpuscular Hemoglobin Concent 34 g/dL (31-37) Red Cell Distribution Width 15.2 % (11.5-14.5) Platelet Count 211 x10^3/uL (140-400) Neutrophils (%) (Auto) 43 % (31-73) Lymphocytes (%) (Auto) 23 % (24-48) Monocytes (%) (Auto) 6 % (0-9) Eosinophils (%) (Auto) 27 % (0-3) Basophils (%) (Auto) 1 % (0-3) Neutrophils # (Auto) 2.7 x10^3/uL (1.8-7.7) Lymphocytes # (Auto) 1.4 x10^3/uL (1.0-4.8) Monocytes # (Auto) 0.4 x10^3/uL (0.0-1.1) Eosinophils # (Auto) 1.7 x10^3/uL (0.0-0.7) Basophils # (Auto) 0.0 x10^3/uL (0.0-0.2) Test 03/27/21 11:12 03/27/21 23:24 03/28/21 05:20 Glucose (Fingerstick) 106 mg/dL (70-99) 96 mg/dL (70-99) 108 mg/dL (70-99) Laboratory Tests Test 03/27/21 06:40 03/27/21 09:00 03/27/21 11:12 03/27/21 23:24 Glucose (Fingerstick) 149 mg/dL (70-99) 106 mg/dL (70-99) 96 mg/dL (70-99) White Blood Count 6.2 x10^3/uL (4.0-11.0) Red Blood Count 3.09 x10^6/uL (3.50-5.40) Hemoglobin 9.2 g/dL (12.0-15.5) Hematocrit 27.1 % (36.0-47.0) Mean Corpuscular Volume 88 fL (79-100) Mean Corpuscular Hemoglobin 30 pg (25-35) Mean Corpuscular Hemoglobin Concent 34 g/dL (31-37) Red Cell Distribution Width 15.2 % (11.5-14.5) Platelet Count 211 x10^3/uL (140-400) Neutrophils (%) (Auto) 43 % (31-73) Lymphocytes (%) (Auto) 23 % (24-48) Monocytes (%) (Auto) 6 % (0-9) Eosinophils (%) (Auto) 27 % (0-3) Basophils (%) (Auto) 1 % (0-3) Neutrophils # (Auto) 2.7 x10^3/uL (1.8-7.7) Lymphocytes # (Auto) 1.4 x10^3/uL (1.0-4.8) Monocytes # (Auto) 0.4 x10^3/uL (0.0-1.1) Eosinophils # (Auto) 1.7 x10^3/uL (0.0-0.7) Basophils # (Auto) 0.0 x10^3/uL (0.0-0.2) Test 03/28/21 05:20 Glucose (Fingerstick) 108 mg/dL (70-99) Medications Active Scripts Medications Dose Route/Sig Max Daily Dose Days Date Category Novolog Flexpen (Insulin Aspart) 100 Unit/1 Ml Insuln.pen 3-7 SQ TIDACHC 02/07/21 Reported Lisinopril 5 Mg Tablet 1 Tab PO DAILY 02/07/21 Reported Lantus Solostar (Insulin Glargine,Hum.rec.anlog) 100 Unit/1 Ml Insuln.pen 5 Unit SQ QHS 04/09/15 Reported Atorvastatin Calcium 40 Mg Tablet 40 Mg PO HS 04/09/15 Reported Comments Chest x-ray reviewed 03/26/2021. Unchanged bilateral diffuse interstitial infiltrates 03/20/21 CXR IMPRESSION: Continued presence of diffuse pulmonary opacities bilaterally without interval improvement. Impression . IMPRESSION: 1. Acute hypoxic respiratory failure secondary to COVID-19 viral pneumonia/acute lung injury and early acute respiratory distress syndrome. S/P intubation 02/17/21. Status post tracheostomy. 2. Nonsmoker. 3. Abnormal chest x-ray consistent with COVID-19 viral pneumonia.--- No significant change 4. Diabetic ketoacidosis--resolved 5. Underlying obesity contributing to hypoxia as well. 6. BOB . hemodialysis started 03/07 7. Fever, per ID--resolved 8. Abnormal chest x-ray with diffuse interstitial infiltrates compatible with viral pneumonia 9. [place] in the sputum is a contamination 10. Septic shock--resolved 11. s/p lap G-tube 03/27 Plan . Updated 03/28/21 cont vent support setting reviewed decrease sedation start weaning as tolerated s/p lap G-tube 03/27 As needed Lasix Follow CXR/ABG Follow nephrology recs Monitor HBG , follow GI recs Follow ID recs for ABX Hemodialysis per renal DVT/GI PPX D/W RN and RT Updated 03/27/21 Continue daily pressure support trials. Will use higher pressure support for improved compliance. Surgical PEG tube is a schedule today. Currently on Precedex drip. As needed Lasix Follow CXR/ABG Follow nephrology recs Monitor HBG , follow GI recs Follow ID recs for ABX Hemodialysis per renal DVT/GI PPX D/W RN and RT Updated 03/26/21 Continue daily pressure support trials. Will use higher pressure support for improved compliance. Likely trial of trach shield trial, once down to pressure support of 10. Patient received 1 dose of Lasix today to see an improvement in her oxygenation Surgery consulted for surgical PEG. Scheduled for Tuesday Currently on Precedex drip. Follow CXR/ABG Follow nephrology recs Monitor HBG , follow GI recs Follow ID recs for ABX DVT/GI PPX D/W RN and RT Updated 03/25/21 Continue daily pressure support trials. Currently on pressure support of 16. We will wean the pressure support down to 10. Likely trial of trach shield in the next 24 hours Surgery consulted for surgical PEG. Currently on Precedex drip. Follow CXR/ABG Follow nephrology recs Monitor HBG , follow GI recs Follow ID recs for ABX DVT/GI PPX D/W RN and RT Updated 03/24/21 Continue current vent support, currently on 40% FiO2 and volume control mechanical ventilation. We will try CPAP trials. Surgery consulted for surgical PEG. Currently on Precedex drip. Follow CXR/ABG Follow nephrology recs Monitor HBG , follow GI recs Follow ID recs for ABX DVT/GI PPX D/W RN and RT Updated 03/23/21 Continue current vent support, currently on 45% in PC mode. We will ask respiratory to switch her to volume control mode. Will monitor peak airway pressures. Currently on Precedex drip. Follow CXR/ABG Follow nephrology recs Monitor HBG , follow GI recs Follow ID recs for ABX DVT/GI PPX D/W RN and RT PEG tube is a scheduled for today and after that she should be stable for LTAC transfer once accepted Updated 03/22/21 Continue current vent support, currently on 45% in PC mode. We will ask respiratory to switch her to volume control mode in a.m. Did not tolerated coming off sedation well with increasing blood pressure. Currently on low-dose fentanyl and Precedex drip. Follow CXR/ABG Follow nephrology recs Monitor HBG , follow GI recs Follow ID recs for ABX DVT/GI PPX D/W RN and RT PEG tube is a scheduled for tomorrow and after that she should be stable for LTAC transfer Updated 03/21/21 Continue current vent support, currently on 45% in PC mode Discontinue sedation and assess mental status. Once more awake CPAP trial. Follow CXR/ABG Follow nephrology recs Monitor HBG , follow GI recs Follow ID recs for ABX DVT/GI PPX D/W RN and RT Updated 03/20/21 Continue current vent support, currently on 45% in PC mode will reduce to 40% and change to 1:2 IE ratio Reduce sedation and assess mental status Follow CXR/ABG Follow nephrology recs Monitor HBG , follow GI recs Follow ID recs for ABX DVT/GI PPX D/W RN and RT Updated 03/[address] Whitley On exam she appears to be less puffy Finish course of remdesivir and dexamethasone Hemodialysis DVT GI prophylaxis Off pressors Chest x-ray reviewed, no significant change, 03/18 updated 03/18 Continue current mechanical support Hemodialysis per Dr. Sims Nutritional support DVT GI prophylaxis SHERRIE MARMOLEJO MD Mar 28, 2021 06:13
[2021-03-28 06:16] LABS: CALCIUM 8.5 mg/dL (8.5-10.1); CREATININE 3.7 mg/dL (0.6-1.0); GFR 13.2; POTASSIUM 4.1 mmol/L (3.5-5.1)
[2021-03-28 07:27] LABS: BASE EXCESS ABG 1 mmol/L (-3-3); HCO3 ABG 23 mmol/L (21-28); PCO2 ABG 28 mmHg (35-46); PO2 ABG 142 mmHg (75-108); SAT O2 ABG 99 % (92-99)
--- NOTE | 2021-03-28 07:44 | PDOC ---
[facility] [facility] PROGRESS NOTE Date of Service DOS: DATE: 03/28/21 TIME: 07:40 Chief Complaint Chief Complaint CC: Covid-19 DKA Hypotension Nausea Vomiting Combined metabolic and respiratory acidosis Acute electrolyte derangementhyponatremia, hypochloremia due to volume depletion Hyperglycemia BOB due to ATN, requiring dialysis Erythrocytosis Candiduria Sacral decubitus ulcer S/P Trach on (03/17/21) Trach cultures positive for [place] albicans and now acinebacter ursungi History of Present Illness History of Present Illness Ms Borges is a 46 year old female who presented with nausea/vomiting since 7 AM 02/06/2021 in the morning. Patient stated that her recently tested positive for Covid. She states that he "coughed in my face because he thought it was funny." She reports subjective fevers and chills and nausea/vomiting. Denies sore throat, cough, shortness of breath. No chest pain. Does have some upper abdominal discomfort after vomiting, that she attributes to muscular strain. She was not vaccinated for Covid. 02/08: No acute events overnight. Patient seen and examined bedside and resting comfortably. Continues to complain of nausea not able to tolerate any diet at this time. Saturating 98% on room air. Patient's chart, labs, images were reviewed and discussed with RN 02/09: Afebrile, currently breathing on room air. Still with complaints of nausea and vomiting x3 today. States that she has history of similar symptoms that have been mildly improved with IV Dilaudid. 02/10: Patient febrile today with T-max 102.2 F. She still admits to nausea, denies any further vomiting. We will continue to provide supportive care and monitor for any recurrent fevers overnight. Patient continues to improve may discharge tomorrow to continue self-isolation. 02/11: Febrile overnight, T-max 102.3 F. She did become hypoxic overnight, currently breathing on 4 L nasal cannula. Also admits to associated vomiting or diarrhea overnight. Discussed with RN, will initiate remdesivir and closely monitor LFTs. IV Decadron, and prophylactic antibiotics. 02/12: Low-grade fever overnight, T-max 99.7. Currently breathing on room air. Will discontinue remdesivir, steroids, and antibiotics; will observe overnight. Still with complaints of vomiting x1 and diarrhea. We will continue to provide supportive care and hope to discharge in the next day or so. 02/13: Afebrile. Still complains of intermittent diarrhea. At the time of my evaluation she was breathing on 6 L nasal cannula; this is somewhat misleading as patient states that she did not feel short of breath but was placed on 6 L by nursing staff overnight. 02/14: Afebrile, currently breathing on 8 L nasal cannula. There has been some misleading documentation, chart oxygen this patient is requiring. Discussed with RN, will resume remdesivir to complete total of 5 days. Continue to monitor LFTs. Will add steroids, Rocephin, and azithromycin. 02/15: Afebrile. Became much more hypoxic overnight, requiring BiPAP. At the time of my evaluation she is still breathing on BiPAP. Consultation was placed to pulmonology. Had discussion with Dr. Myrick about initiating Tocilizumab 02/16: No acute events overnight. Patient becoming more hypoxic saturating 94% and requiring BiPAP. Patient will be transferred to the ICU at this time. For worsening clinical status. Discussed with pulmonary. Patient's chart, labs, images were reviewed and discussed with RN 02/17: Transferred to ICU yesterday afternoon. Seen and examined at bedside she remains on 100% FiO2 on BiPAP. Respirations do appear somewhat labored. Suspec t intubation may be impending. We will closely monitor. Increase lisinopril to 20 today. 02/18: Patient required intubation yesterday afternoon. Saw and examined this morning. She is intubated and sedated. Increase insulin today. Covid protocol ordered. Wean as tolerated. Plan of care discussed with bedside nurse. 02/19: Bedside. She remains intubated and sedated. Continue Covid protocol. Wean oxygen sedation as tolerated. Pulmonary following. Plan of care discussed with bedside RN. 02/20: Patient seen and examined at bedside. She remains intubated and sedated. No major clinical changes. Continue current treatment. Pulmonary following. Plan of care discussed with bedside RN. 02/21: Patient seen and examined at bedside. Remains intubated and sedated date and admission clinical changes. Increase free water flushes today due to hypernatremia. Plan of care discussed with bedside nurse. 02/22: Patient seen and examined at bedside. O2 requirement actually improving, although remains intubated. Possible SBT in the coming days. Hypernatremia improving. Plan of care discussed bedside RN. 02/23: Patient remains in ICU on ventilator with FiO2 100%, PEEP 7. Repeat chest x-ray yesterday showed diffuse bilateral pulmonary opacities with no interval improvement. Will discontinue Rocephin and initiate Zosyn. We will continue IV steroids for a full 10-day course 02/24: Afebrile. On vent with FiO2 40%, PEEP 6. Her Coreg has been held due to persistent bradycardia. No documented history of systolic heart failure or previous echocardiogram. Will need to obtain echocardiogram prior to discharge. Continue IV steroids and antibiotics. 02/25: Afebrile. Remains ventilated with FiO2 45%, PEEP 6. Chest x-ray today showed slight improvement of the pulmonary infiltrates, no pneumothorax. Completed 10-day course of IV Decadron. Will initiate slow Solu-Medrol taper. Continue IV Zosyn. Continue supportive care. 02/26: Afebrile. On vent with FiO2 45%, PEEP 6. Completed 10 days of IV Decadron. Will continue IV Zosyn. Continue supportive care. Critical care time 30 minutes spent reviewing charts, reviewing imaging, reviewing labs, discussion with RN. 02/27: Afebrile. On vent with FiO2 45%, PEEP 6. Completed 10 days of steroids and completed remdesivir. Continue with IV Zosyn. CPAP trial yesterday. Continue NG tube and supportive care. 02/28:. Patient remains on vent with FiO2 40%, PEEP 5. Afebrile. Completed steroids and remdesivir. Some noted hypoglycemia overnight, will de-escalate basal insulin. Continue IV Zosyn. Ventilator management per pulmonology. Continue NG tube and supportive care. 03/01: On vent with FiO2 40%, PEEP 5. Afebrile. Completed steroids and remdesivir. Blood glucose well controlled. Continue empiric antibiotics with Zosyn. Ventilator management per pulmonology. Continue NG tube and supportive care. 03/02: No acute events overnight. Patient hypotensive the morning due to oversedation. Will wean off sedation and keep antihypertensive medications on board. Currently saturating 100% on vent settings of 18/450/40/5. Will attempt spontaneous breathing trial today to see how patient does. 03/03: No acute events overnight. Patient saturating 98% on vent settings of 18/450/40/5. Will defer spontaneous breathing trials to pulmonary at this time. Patient's chart, labs, images were reviewed and discussed with RN 8: No acute events overnight. Patient saturating 9 9% on vent settings of 18/450/30/5. Patient currently is unable to tolerate weaning. Per pulmonary. Patient's chart, labs, images were reviewed and discussed with RN 03/05: No acute events overnight. Patient is saturating 97% on vent settings of 18/450/55/5. Her FiO2 needs to be increased due to abnormal ABG with 7.3 //24. Patient's chart, labs, images were reviewed and discussed with RN 8: No acute events overnight. Patient saturating 94% on vent settings of 18/450/55/5. Chest x-ray showing increase in pulmonary infiltrates. Wound care is consulted for decubitus ulcer patient's chart, labs, images were reviewed and discussed with RN 03/07: No acute events overnight. Patient saturating 94% on vent settings of 20/450/70/8. Patient now heading into renal failure with her creatinine bumped up from 1.5-4.2. Decreased urine output. Plan for hemodialysis today and temporary catheter placement and nephrology is consulted. 03/08: No acute events overnight. Patient did have a nausea vomiting episode and tube feeds were held. KUB repeat shows NG tube still in the stomach. Will resume tube feeds at trickle and advance to goal today. Will start hemodialysis soon. 03/09: Seen on vent 20/450/60%/8. ABG 7.2 WBC 11.4, Hb 7.4, platelets 188, NA 131, K4.9, BUN 48, CR 51, glucose 199, phosphorus 7.9, mag 2.2, AST 265 ALT 219, albumin 1.1. Chest radiograph appears unchanged from prior. Dialysis x1 today 03/10: Afebrile. Seen on vent, 20/450/60/7 with ABG 7.3 . Tolerated dialysis well on 03/09. LFTs similar. 03/11: Afebrile. Seen on vent, sedated. Still requiring Levophed for BP support. WBC 16.7, Hb 8.1, NA 130, ABG 7.3 on 55% FiO2 PEEP 6. On Zosyn and Zyvox Diflucan. Dialysis today 03/12: Afebrile. Still requiring Levophed for BP support sedated with Versed febrile Precedex. WBC 16.1, Hb 8.5, platelets 185, NA 133. Trach plan tentatively 03/17. O2 saturations 93% on 50% FiO2 PEEP 6. ABG 7. On Zosyn and Zyvox Diflucan. 03/13: Afebrile. Still on Levophed for BP support lightly sedated. 7. on 45% FiO2. Plan for dialysis today. On Zosyn and Zyvox Diflucan. More swollen today. 03/14: Afebrile. Weaning down off Levophed. WBC 14.9 NA 132. O2 saturations 92% on 45% FiO2 PEEP 5. Afebrile. O2 saturations 91% on FiO2 45% PEEP 6. Continued on Zosyn and Zyvox Diflucan. Tentative trach planned 03/17/2021 CC time 31 minutes 03/16/21: Patient seen and examined in ICU. Periorbital as well as upper and lower extremity edema noted. OG feed running at 30cc/hr. Still on vent on pressure control with a rate of 24 with 45% FiO2. Patient has rectal bag. Currently she has 98% O2 sat. Currently sedated with Dexmedetomidine, Propofol, Versed, and Fentanyl. Discussed with RN. Chart reviewed. 03/17/21: Patient was seen and examined in the ICU today. Periorbital edema as well as abdominal and mons pubis edema was noted. Patient still on vent on pressure control with Fi02 of 45% plus 6 PEEP. Patient had rectal bag. Currently sedated on Dexmedetomidine, Propofol, Versed, and Fentanyl. Discussed with RN. Chart reviewed. 03/18/21: Patient seen and examined in ICU. On vent via trach that was placed yesterday. Vent settings are Pressure Control of 40 with FiO2 of 45% and 6 PEEP. Trach clean and dry. Orbital swelling still present. Pupils are sluggish. Patient on TPN running at 30cc/hr. Kern to bedside and rectal bag in place. Current O2 sat at 94%. Sedated on Dexmedetomidine, Propofol, Versed, and Fentanyl. Discussed with RN. Chart reviewed. 03/19/21: Patient was seen and examined in the ICU today. Currently on vent via trach on pressure control of 42, rate of 24, FiO2 of 45%, and 6 PEEP. O2 sat is at 97% while patient is being examined. Trach is clean and dry. PICC line is in place on right arm. Periorbital swelling has decreased slightly since examined yesterday. Patient is sedated on Dexmedetomidine, Propofol, Versed, and Fentanyl. Discussed with RN. Chart reviewed. 03/20/21: Patient seen and examined in the ICU. Periorbital edema is slightly decreased since yesterday. O2 sat while being examined was 93%. NG tube in place and running at 30cc/hr. Patient on vent via trach on pressure control of 40 with FiO2 of 45 and rate of 24. Sedated on Dexmedetomidine, Propofol, Versed, and Fentanyl. PICC line in place. Kern to bedside. Rectal bag present. Discussed with RN. Chart reviewed. 03/21/21: Patient was seen and examined in the ICU today. She was semi-sedated.. She was on Dexmedetomidine and Fentanyl. We are holding the Propofol. Her eyes were periodically open but she was not making meaningful eye contact or tracking. On vent via trach with pressure control of 40 and FiO2 at 45. Rate was 24. PEEP was 5. Trach was clean and dry. While being examined, her O2 sat was 94%. Rectal bag and Kern to bedside in place. NG tube in place and feeding at 30cc/hr. IV fluids still running. Levophed has been stopped. Discussed with RN. Chart reviewed. 03/22/21: Patient was seen and examined in the ICU. She was semi-sedated on Propofol and Dexmedetomidine. Her eyes were open but she did not make meaningful eye contact. Her blood pressure was elevated (198/102) while being examined and she had just been given hydralazine to lower it. There are plans to place a PEG tube tomorrow. Currently on vent via trach on pressure control of 40 with FiO2 of 45%, 5 PEEP, and a rate of 24. Current O2 sat is 98%. She is feeding through an NG tube at 30cc/hr. Rectal bag and Kern to bedside present. SCDs on patient for DVT prophylaxis. She did not do her daily dialysis today but the plan is to start back on that tomorrow. Discussed with RN. Chart reviewed. 03/23/2021: Patient remains in ICU on ventilator. FiO2 40%, PEEP 5. Trach cultures positive for [place] albicans and acinebacter ursungi. We will continue treatment with IV antibiotics and micafungin, per ID. HD per nephrology. Plans for PEG tube placement today. 30 minutes critical care time was spent reviewing charts, reviewing labs, reviewing imaging, discussion with RN. 03/24/2021: Afebrile. On vent with FiO2 45%, PEEP 5. Had attempted PEG placement per GI yesterday, but unable to locate safe path for PEG; will consider surgical opinion. Once PEG is in place she should be stable for LTAC transfer when accepted. Continue antibiotics, per ID. 30 minutes critical care time was spent reviewing charts, reviewing labs, reviewing imaging, discussion with RN. 03/25/2021: Febrile overnight with T-max 101.5 F. On vent with FiO2 45%, PEEP 5. Surgery has been consulted with tentative plans for laparoscopic versus open gastrostomy placement tomorrow. Trach cultures positive for [place] albicans and now acinebacter ursungi; will continue antibiotic management, per ID. Hemodialysis, per nephrology. Patient needing LTAC placement, but currently without benefits. workers compensation paralegal following for discharge planning. Critical care time 30 minutes spent reviewing charts, reviewing labs, reviewing imaging, discussion with RN. 03/26/2021: Febrile today with T-max 100.5 F. Awake on vent with FiO2 45%, PEEP 5. When I ask if she remembers any she nods. G-tube placement scheduled for tomorrow, per general surgery. Chest x-ray today showed slight interval increase in diffuse infiltrate. Continue antibiotic management, per ID. Hemodialysis per nephrology. Reportedly did not tolerate CPAP trial this morning. workers compensation paralegal following for LTAC placement. Critical care time 30 minutes spent reviewing charts, reviewing labs, reviewing imaging, discussion with RN. 03/27/2021: On vent with FiO2 45%, PEEP 5. Afebrile today. Continue treatment of acute renal failure requiring HD, per nephrology. Monitor kidney function for recovery. G-tube placement scheduled for today, per general surgery. Likely LTAC placement soon, but this is been a difficult as she is self-pay without benefits; social research assistant following. Critical care time 30 minutes spent reviewing charts, reviewing labs, reviewing imaging, discussion with RN. 03/28/2021: Afebrile. On vent with FiO2 40%, PEEP 5. Had laparoscopic gastrostomy tube placed yesterday, per general surgery. Continue treatment of acute renal failure requiring HD, per nephrology. Continue IV antibiotics, per ID. Likely LTAC placement soon, but this is been a difficult as she is self-pay without benefits; social research assistant following. Critical care time 30 minutes spent reviewing charts, reviewing labs, reviewing imaging, discussion with RN. Vitals/I&O Vitals/I&O: Vital Signs Date Time Temp Pulse Resp B/P (MAP) Pulse Ox O2 Delivery O2 Flow Rate FiO2 03/28/21 07:14 99 Ventilator 03/28/21 05:55 59 187/77 03/28/21 04:00 24 03/27/21 23:00 99.2 99.2 I & O 03/27/21 03/27/21 03/28/21 15:00 23:00 07:00 Intake Total 0 ml 987 ml 0 ml Output Total 45 ml Balance 0 ml 942 ml 0 ml Physical Exam Physical Exam: GENERAL: Intubated and sedated. Trach HEENT: Normocephalic, atraumatic. Anicteric. Slight bilateral periorbital edema. Neck right IJ HDC clean LUNGS: Rhonchi. HEART: S1, S2. No murmurs. ABDOMEN: Obese, soft. Bowel sounds present. Nontender, nondistended. Abdominal and mons pubis edema noted. GENITOURINARY: Kern and fecal tube in place. EXTREMITIES: Edema present no cyanosis. CENTRAL NERVOUS SYSTEM: Intubated. PSYCHIATRIC: Unable to assess. Derm has pressure wounds wound pictures noted in chart. Generalized rash, PICC line , right IJ HDC clean General: No acute distress Heart: Regular rate, Normal S1, Normal S2, No murmurs, Gallops Lungs: Crackles, Other (On vent with trach collar in place) Abdomen: Soft, No tenderness Extremities: Other (ANASARCA) Skin: No rashes, No significant lesion Labs Labs: Laboratory Tests Test 03/27/21 09:00 03/27/21 11:12 03/27/21 23:24 03/28/21 05:20 White Blood Count 6.2 x10^3/uL (4.0-11.0) Red Blood Count 3.09 x10^6/uL (3.50-5.40) Hemoglobin 9.2 g/dL (12.0-15.5) Hematocrit 27.1 % (36.0-47.0) Mean Corpuscular Volume 88 fL (79-100) Mean Corpuscular Hemoglobin 30 pg (25-35) Mean Corpuscular Hemoglobin Concent 34 g/dL (31-37) Red Cell Distribution Width 15.2 % (11.5-14.5) Platelet Count 211 x10^3/uL (140-400) Neutrophils (%) (Auto) 43 % (31-73) Lymphocytes (%) (Auto) 23 % (24-48) Monocytes (%) (Auto) 6 % (0-9) Eosinophils (%) (Auto) 27 % (0-3) Basophils (%) (Auto) 1 % (0-3) Neutrophils # (Auto) 2.7 x10^3/uL (1.8-7.7) Lymphocytes # (Auto) 1.4 x10^3/uL (1.0-4.8) Monocytes # (Auto) 0.4 x10^3/uL (0.0-1.1) Eosinophils # (Auto) 1.7 x10^3/uL (0.0-0.7) Basophils # (Auto) 0.0 x10^3/uL (0.0-0.2) Glucose (Fingerstick) 106 mg/dL (70-99) 96 mg/dL (70-99) 108 mg/dL (70-99) Test 03/28/21 05:35 03/28/21 07:22 White Blood Count 9.4 x10^3/uL (4.0-11.0) Red Blood Count 3.20 x10^6/uL (3.50-5.40) Hemoglobin 9.5 g/dL (12.0-15.5) Hematocrit 27.9 % (36.0-47.0) Mean Corpuscular Volume 87 fL (79-100) Mean Corpuscular Hemoglobin 30 pg (25-35) Mean Corpuscular Hemoglobin Concent 34 g/dL (31-37) Red Cell Distribution Width 15.2 % (11.5-14.5) Platelet Count 255 x10^3/uL (140-400) Neutrophils (%) (Auto) 51 % (31-73) Lymphocytes (%) (Auto) 15 % (24-48) Monocytes (%) (Auto) 9 % (0-9) Eosinophils (%) (Auto) 25 % (0-3) Basophils (%) (Auto) 0 % (0-3) Neutrophils # (Auto) 4.8 x10^3/uL (1.8-7.7) Lymphocytes # (Auto) 1.4 x10^3/uL (1.0-4.8) Monocytes # (Auto) 0.9 x10^3/uL (0.0-1.1) Eosinophils # (Auto) 2.3 x10^3/uL (0.0-0.7) Basophils # (Auto) 0.0 x10^3/uL (0.0-0.2) Sodium Level 134 mmol/L (136-145) Potassium Level 4.1 mmol/L (3.5-5.1) Chloride Level 98 mmol/L (98-107) Carbon Dioxide Level 27 mmol/L (21-32) Anion Gap 9 (6-14) Blood Urea Nitrogen 22 mg/dL (7-20) Creatinine 3.7 mg/dL (0.6-1.0) Estimated GFR (Cockcroft-Gault) 13.2 Glucose Level 116 mg/dL (70-99) Calcium Level 8.5 mg/dL (8.5-10.1) O2 Saturation 99 % (92-99) Arterial Blood pH 7.54 (7.35-7.45) Arterial Blood pCO2 at Patient Temp 28 mmHg (35-46) Arterial Blood pO2 at Patient Temp 142 mmHg (75-108) Arterial Blood HCO3 23 mmol/L (21-28) Arterial Blood Base Excess 1 mmol/L (-3-3) FiO2 45% vent Assessment and Plan Assessmemt and Plan Problems Medical Problems: (1) Ketoacidosis Status: Acute Comment Review of Relevant I have reviewed the following items mazin (where applicable) has been applied. Medications: Current Medications Medications (Trade) Dose Ordered Sig/Pepe Route PRN Reason Start Time Stop Time Status Last Admin Dose Admin Bupivacaine HCl/ Epinephrine Bitart (Sensorcain-Epi 0.5% Kit) 30 ml STK-MED ONCE .ROUTE 03/27/21 10:05 03/27/21 10:05 DC 03/27/21 13:12 Justifications for Admission Other Justification SANDI ALCARAZ MD Mar 28, 2021 07:44
--- NOTE | 2021-03-28 07:59 | PDOC ---
Infectious Disease Note Subjective Subjective Pt intubated Patient is awake appears to follow some commands Status post tracheostomy ROS ROS No nausea vomiting diarrhea Vital Sign Vital Signs Vital Signs Date Time Temp Pulse Resp B/P (MAP) Pulse Ox O2 Delivery O2 Flow Rate FiO2 03/28/21 07:14 99 Ventilator 03/28/21 06:00 74 24 197/91 (126) 03/28/21 05:00 99.1 99.1 Physical Exam PHYSICAL EXAM GENERAL: Intubated and sedated. Trach HEENT: Normocephalic, atraumatic. Anicteric. Slight bilateral periorbital edema. Neck right IJ HDC clean LUNGS: Rhonchi. HEART: S1, S2. No murmurs. ABDOMEN: Obese, soft. Bowel sounds present. Nontender, nondistended. Abdominal and mons pubis edema noted. GENITOURINARY: Kern and fecal tube in place. EXTREMITIES: Edema present no cyanosis. CENTRAL NERVOUS SYSTEM: Intubated. PSYCHIATRIC: Unable to assess. Derm has pressure wounds wound pictures noted in chart. Generalized rash, PICC line , right IJ HDC clean Labs Lab Laboratory Tests Test 03/27/21 09:00 03/27/21 11:12 03/27/21 23:24 03/28/21 05:20 White Blood Count 6.2 x10^3/uL (4.0-11.0) Red Blood Count 3.09 x10^6/uL (3.50-5.40) Hemoglobin 9.2 g/dL (12.0-15.5) Hematocrit 27.1 % (36.0-47.0) Mean Corpuscular Volume 88 fL (79-100) Mean Corpuscular Hemoglobin 30 pg (25-35) Mean Corpuscular Hemoglobin Concent 34 g/dL (31-37) Red Cell Distribution Width 15.2 % (11.5-14.5) Platelet Count 211 x10^3/uL (140-400) Neutrophils (%) (Auto) 43 % (31-73) Lymphocytes (%) (Auto) 23 % (24-48) Monocytes (%) (Auto) 6 % (0-9) Eosinophils (%) (Auto) 27 % (0-3) Basophils (%) (Auto) 1 % (0-3) Neutrophils # (Auto) 2.7 x10^3/uL (1.8-7.7) Lymphocytes # (Auto) 1.4 x10^3/uL (1.0-4.8) Monocytes # (Auto) 0.4 x10^3/uL (0.0-1.1) Eosinophils # (Auto) 1.7 x10^3/uL (0.0-0.7) Basophils # (Auto) 0.0 x10^3/uL (0.0-0.2) Glucose (Fingerstick) 106 mg/dL (70-99) 96 mg/dL (70-99) 108 mg/dL (70-99) Test 03/28/21 05:35 03/28/21 07:22 White Blood Count 9.4 x10^3/uL (4.0-11.0) Red Blood Count 3.20 x10^6/uL (3.50-5.40) Hemoglobin 9.5 g/dL (12.0-15.5) Hematocrit 27.9 % (36.0-47.0) Mean Corpuscular Volume 87 fL (79-100) Mean Corpuscular Hemoglobin 30 pg (25-35) Mean Corpuscular Hemoglobin Concent 34 g/dL (31-37) Red Cell Distribution Width 15.2 % (11.5-14.5) Platelet Count 255 x10^3/uL (140-400) Neutrophils (%) (Auto) 51 % (31-73) Lymphocytes (%) (Auto) 15 % (24-48) Monocytes (%) (Auto) 9 % (0-9) Eosinophils (%) (Auto) 25 % (0-3) Basophils (%) (Auto) 0 % (0-3) Neutrophils # (Auto) 4.8 x10^3/uL (1.8-7.7) Lymphocytes # (Auto) 1.4 x10^3/uL (1.0-4.8) Monocytes # (Auto) 0.9 x10^3/uL (0.0-1.1) Eosinophils # (Auto) 2.3 x10^3/uL (0.0-0.7) Basophils # (Auto) 0.0 x10^3/uL (0.0-0.2) Sodium Level 134 mmol/L (136-145) Potassium Level 4.1 mmol/L (3.5-5.1) Chloride Level 98 mmol/L (98-107) Carbon Dioxide Level 27 mmol/L (21-32) Anion Gap 9 (6-14) Blood Urea Nitrogen 22 mg/dL (7-20) Creatinine 3.7 mg/dL (0.6-1.0) Estimated GFR (Cockcroft-Gault) 13.2 Glucose Level 116 mg/dL (70-99) Calcium Level 8.5 mg/dL (8.5-10.1) O2 Saturation 99 % (92-99) Arterial Blood pH 7.54 (7.35-7.45) Arterial Blood pCO2 at Patient Temp 28 mmHg (35-46) Arterial Blood pO2 at Patient Temp 142 mmHg (75-108) Arterial Blood HCO3 23 mmol/L (21-28) Arterial Blood Base Excess 1 mmol/L (-3-3) FiO2 45% vent Micro GRAM STAIN EVALUATION Final Final This specimen is of good quality and is acceptable for routine bacterial culture. Culture results to follow. NO ORGANISMS SEEN. SQUAMOUS EPI CELL:RARE PMN (WBCs):MODERATE Unless otherwise specified, Testing Performed by: [address] [id number] For Inquires, the Physician may contact the Microbiology department at [phone] RESPIRATORY CULTURE Final Final MODERATE GRAM NEGATIVE RODS on 03/18/21 at 1120 FINAL ID= [[email or web address] [email or web address].] ACINETOBACTER URSINGII. ANTIMICROBIAL SUSCEPTIBILITY Final Comment NEG SAGE 56 ACINETOBACTER URSINGII. ANTIBIOTIC RESULT INTERPRETATION AMPICILLIN/SULBACTAM <=4/2 S AMIKACIN <=16 S CEFTRIAXONE 2 S CEFTAZIDIME 16 I CEFOTAXIME 16 I CIPROFLOXACIN <=0.25 S CEFEPIME 4 S GENTAMICIN <=2 S LEVOFLOXACIN <=0.5 S RUN DATE: 03/19/21 [facility] *LIVE* PAGE 2 RUN TIME: 1120 Specimen Inquiry SPEC: [id number] PATIENT: ARIADNA BANKS [id number] ( Continued) Procedure Result CONTINUED ON NEXT PAGE RUN DATE: 03/19/21 [facility] *LIVE* PAGE 3 RUN TIME: 1120 Specimen Inquiry SPEC: [id number] PATIENT: ARIADNA BANKS [id number] (Continued) Procedure Result ANTIMICROBIAL SUSCEPTIBILITY Final (continued) MINOCYCLINE <=4 S MEROPENEM <=1 S TRIMETHOPRIM/SULFAMETHOXAZOLE <=0.5/9.5 S TOBRAMYCIN <=2 S Unless otherwise specified, Testing Performed by: [address] [address] For Inquires, the Physician may contact the Microbiology department at [phone] Culture negative Objective Assessment 1. Febrile illness. Improved 2. COVID-19 infection present on date of admission, 02/06/2021. Status post remdesivir, dexamethasone. 3. Acute hypoxic respiratory failure, status post intubation. S/P Trach on 03/17 Trach cultures positive for Rock albicans and now acinebacter ursungi 4. Diabetes. 5. Diarrhea. 6. Hypertension. 7. Hyperlipidemia. 8. Anemia. 9. BOB on HD 10.UC rock albican, ua neg Plan Plan of Care Cont Meropenem Follow-up lab ,cultures, C. diff PCR negative Kern changed per team Wound care per wound treatment Offload Continue supportive care. Awaiting PEG on Tuesday Prognosis guarded. D/W BLANCA CURIEL MD Mar 28, 2021 07:59
[2021-03-28] MEDS: DOCUSATE 100 MG/10 ML SOLUTION. PO SCH ×2 (09:05→21:11)
[2021-03-28] MEDS: INSULIN GLARGINE SYRINGE. SQ SCH ×2 (09:05→21:17)
[2021-03-28] MEDS: MULTIVITAMINS,THERAPEUTIC 5 ML ORAL LIQUID. PEG SCH (09:05)
[2021-03-28] MEDS: FAMOTIDINE 20 MG/2 ML VIAL IVP SCH (09:05)
[2021-03-28] MEDS: NYSTATIN TOPICAL POWDER 15GM BOTTLE. TP SCH ×2 (09:05→21:12)
--- NOTE | 2021-03-28 09:52 | PDOC ---
SURGICAL PROGRESS NOTE DATE: 03/28/21 TIME: 09:51 Subjective Pt appears comfortable Vital Signs Vital Signs Date Time Temp Pulse Resp B/P (MAP) Pulse Ox O2 Delivery O2 Flow Rate FiO2 03/28/21 07:14 99 Ventilator 03/28/21 06:00 74 24 197/91 (126) 03/28/21 05:00 99.1 99.1 I&O Intake and Output 03/28/21 07:00 Intake Total 987 ml Output Total 205 ml Balance 782 ml IV Total 987 ml Tube Feeding 0 ml Output Urine Total 205 ml General: No acute distress Abdomen: Soft, Other (G-tube in place) Labs Laboratory Tests Test 03/26/21 11:50 03/26/21 17:50 03/27/21 00:08 03/27/21 05:45 Glucose (Fingerstick) 174 mg/dL (70-99) 141 mg/dL (70-99) 183 mg/dL (70-99) Sodium Level 135 mmol/L (136-145) Potassium Level 3.2 mmol/L (3.5-5.1) Chloride Level 98 mmol/L (98-107) Carbon Dioxide Level 27 mmol/L (21-32) Anion Gap 10 (6-14) Blood Urea Nitrogen 33 mg/dL (7-20) Creatinine 4.6 mg/dL (0.6-1.0) Estimated GFR (Cockcroft-Gault) 10.3 Glucose Level 158 mg/dL (70-99) Calcium Level 8.8 mg/dL (8.5-10.1) Test 03/27/21 06:40 03/27/21 09:00 03/27/21 11:12 03/27/21 23:24 Glucose (Fingerstick) 149 mg/dL (70-99) 106 mg/dL (70-99) 96 mg/dL (70-99) White Blood Count 6.2 x10^3/uL (4.0-11.0) Red Blood Count 3.09 x10^6/uL (3.50-5.40) Hemoglobin 9.2 g/dL (12.0-15.5) Hematocrit 27.1 % (36.0-47.0) Mean Corpuscular Volume 88 fL (79-100) Mean Corpuscular Hemoglobin 30 pg (25-35) Mean Corpuscular Hemoglobin Concent 34 g/dL (31-37) Red Cell Distribution Width 15.2 % (11.5-14.5) Platelet Count 211 x10^3/uL (140-400) Neutrophils (%) (Auto) 43 % (31-73) Lymphocytes (%) (Auto) 23 % (24-48) Monocytes (%) (Auto) 6 % (0-9) Eosinophils (%) (Auto) 27 % (0-3) Basophils (%) (Auto) 1 % (0-3) Neutrophils # (Auto) 2.7 x10^3/uL (1.8-7.7) Lymphocytes # (Auto) 1.4 x10^3/uL (1.0-4.8) Monocytes # (Auto) 0.4 x10^3/uL (0.0-1.1) Eosinophils # (Auto) 1.7 x10^3/uL (0.0-0.7) Basophils # (Auto) 0.0 x10^3/uL (0.0-0.2) Test 03/28/21 05:20 03/28/21 05:35 03/28/21 07:22 Glucose (Fingerstick) 108 mg/dL (70-99) White Blood Count 9.4 x10^3/uL (4.0-11.0) Red Blood Count 3.20 x10^6/uL (3.50-5.40) Hemoglobin 9.5 g/dL (12.0-15.5) Hematocrit 27.9 % (36.0-47.0) Mean Corpuscular Volume 87 fL (79-100) Mean Corpuscular Hemoglobin 30 pg (25-35) Mean Corpuscular Hemoglobin Concent 34 g/dL (31-37) Red Cell Distribution Width 15.2 % (11.5-14.5) Platelet Count 255 x10^3/uL (140-400) Neutrophils (%) (Auto) 51 % (31-73) Lymphocytes (%) (Auto) 15 % (24-48) Monocytes (%) (Auto) 9 % (0-9) Eosinophils (%) (Auto) 25 % (0-3) Basophils (%) (Auto) 0 % (0-3) Neutrophils # (Auto) 4.8 x10^3/uL (1.8-7.7) Lymphocytes # (Auto) 1.4 x10^3/uL (1.0-4.8) Monocytes # (Auto) 0.9 x10^3/uL (0.0-1.1) Eosinophils # (Auto) 2.3 x10^3/uL (0.0-0.7) Basophils # (Auto) 0.0 x10^3/uL (0.0-0.2) Sodium Level 134 mmol/L (136-145) Potassium Level 4.1 mmol/L (3.5-5.1) Chloride Level 98 mmol/L (98-107) Carbon Dioxide Level 27 mmol/L (21-32) Anion Gap 9 (6-14) Blood Urea Nitrogen 22 mg/dL (7-20) Creatinine 3.7 mg/dL (0.6-1.0) Estimated GFR (Cockcroft-Gault) 13.2 Glucose Level 116 mg/dL (70-99) Calcium Level 8.5 mg/dL (8.5-10.1) O2 Saturation 99 % (92-99) Arterial Blood pH 7.54 (7.35-7.45) Arterial Blood pCO2 at Patient Temp 28 mmHg (35-46) Arterial Blood pO2 at Patient Temp 142 mmHg (75-108) Arterial Blood HCO3 23 mmol/L (21-28) Arterial Blood Base Excess 1 mmol/L (-3-3) FiO2 45% vent Laboratory Tests Test 03/27/21 11:12 03/27/21 23:24 03/28/21 05:20 03/28/21 05:35 Glucose (Fingerstick) 106 mg/dL (70-99) 96 mg/dL (70-99) 108 mg/dL (70-99) White Blood Count 9.4 x10^3/uL (4.0-11.0) Red Blood Count 3.20 x10^6/uL (3.50-5.40) Hemoglobin 9.5 g/dL (12.0-15.5) Hematocrit 27.9 % (36.0-47.0) Mean Corpuscular Volume 87 fL (79-100) Mean Corpuscular Hemoglobin 30 pg (25-35) Mean Corpuscular Hemoglobin Concent 34 g/dL (31-37) Red Cell Distribution Width 15.2 % (11.5-14.5) Platelet Count 255 x10^3/uL (140-400) Neutrophils (%) (Auto) 51 % (31-73) Lymphocytes (%) (Auto) 15 % (24-48) Monocytes (%) (Auto) 9 % (0-9) Eosinophils (%) (Auto) 25 % (0-3) Basophils (%) (Auto) 0 % (0-3) Neutrophils # (Auto) 4.8 x10^3/uL (1.8-7.7) Lymphocytes # (Auto) 1.4 x10^3/uL (1.0-4.8) Monocytes # (Auto) 0.9 x10^3/uL (0.0-1.1) Eosinophils # (Auto) 2.3 x10^3/uL (0.0-0.7) Basophils # (Auto) 0.0 x10^3/uL (0.0-0.2) Sodium Level 134 mmol/L (136-145) Potassium Level 4.1 mmol/L (3.5-5.1) Chloride Level 98 mmol/L (98-107) Carbon Dioxide Level 27 mmol/L (21-32) Anion Gap 9 (6-14) Blood Urea Nitrogen 22 mg/dL (7-20) Creatinine 3.7 mg/dL (0.6-1.0) Estimated GFR (Cockcroft-Gault) 13.2 Glucose Level 116 mg/dL (70-99) Calcium Level 8.5 mg/dL (8.5-10.1) Test 03/28/21 07:22 O2 Saturation 99 % (92-99) Arterial Blood pH 7.54 (7.35-7.45) Arterial Blood pCO2 at Patient Temp 28 mmHg (35-46) Arterial Blood pO2 at Patient Temp 142 mmHg (75-108) Arterial Blood HCO3 23 mmol/L (21-28) Arterial Blood Base Excess 1 mmol/L (-3-3) FiO2 45% vent Problem List Problems Medical Problems: (1) Ketoacidosis Status: Acute Assessment/Plan s/p lap G-tube OK to start tube feeds will sign off, but please call for questions. Justicifation of Admission Dx: Justifications for Admission: Justification of Admission Dx: N/A DANIEL ACHARYA MD Mar 28, 2021 09:52
[2021-03-28] MEDS: fentaNYL HIGH DOSE PCA 55 ML IV PRN (13:00)
--- NOTE | 2021-03-28 13:46 | PDOC ---
DATE OF SERVICE DATE: 03/28/21 TIME: 13:43 SUBJECTIVE ROS Awake on Vent ,follows some commands has tracheostomy s/p lap G-tube OBJECTIVE Vital Signs Vital Signs Date Time Temp Pulse Resp B/P (MAP) Pulse Ox O2 Delivery O2 Flow Rate FiO2 03/28/21 13:25 98 90.5 03/28/21 13:00 76 17 145/78 (100) Ventilator 03/28/21 12:00 97.7 97.7 I & 0 Intake and Output 03/28/21 06:59 Intake Total 987 ml Output Total 205 ml Balance 782 ml IV Total 987 ml Tube Feeding 0 ml Output Urine Total 205 ml PHYSICAL EXAM Physical Exam GENERAL: On vent, awake HEENT: Anicteric. . Neck Trach+ LUNGS: decreased at bases HEART: S1, S2. No murmurs. ABDOMEN: Obese, soft. Bowel sounds present. GENITOURINARY: Kern and rectal tube in place. EXTREMITIES: Edema present no cyanosis. CENTRAL NERVOUS SYSTEM: awake, on vent PSYCHIATRIC: Unable to assess. DERM has pressure wounds DIAGNOSIS/ASSESSMENT Assessment & Plan BOB-ATN- [place] anuric , requiring dialysis., currently on MWF schedule, No indication today . Supportive care, I/O avoid nephrotoxins, Monitor for recovery .Access- temp HDC HypoNatremia - mild HypoKalemia - Normal K DM 2 - Glucosuria + POA COVID 19 Pneumonia - Unvaccinated Acute Resp Failure- Intubated , CxR 03/20- Continued presence of diffuse pulmonary opacities bilaterally without interval improvement. HTN antihypertensives Anemia -avoid DOYLE 2/2 to Thrombogenic state COMMENT/RELEVANT DATA Meds Current Medications Medications (Trade) Dose Ordered Sig/Pepe Start Time Stop Time Status Last Admin Dose Admin Acetaminophen (Tylenol Supp) 650 mg PRN Q6HRS PRN 02/08/21 01:45 02/17/21 10:45 DC Acetaminophen (Tylenol) 500 mg 1X PRN PRN 03/17/21 13:30 03/18/21 13:29 DC Albumin Human 200 ml @ 200 mls/hr 1X PRN PRN 03/25/21 12:30 03/25/21 18:29 DC Albuterol Sulfate (Ventolin Hfa) 60 puff STK-MED ONCE 03/17/21 11:29 03/17/21 11:29 DC Alteplase, Recombinant (Cathflo For Central Catheter Clearance) 1 mg 1X ONCE 02/27/21 14:30 02/27/21 14:36 DC 02/27/21 15:19 1 MG Alteplase, Recombinant (Cathflo) 2 mg 1X ONCE 02/27/21 11:00 02/27/21 11:01 DC 02/27/21 11:20 2 MG Amlodipine Besylate (Norvasc) 5 mg DAILY 02/24/21 09:00 03/09/21 10:43 DC 02/27/21 09:10 5 MG Atorvastatin Calcium (Lipitor) 40 mg HS 02/08/21 21:00 03/26/21 21:10 40 MG Atropine Sulfate (ATROPINE 0.5mg SYRINGE) 0.5 mg PRN Q5MIN PRN 02/16/21 12:00 Azithromycin 250 mg/Sodium Chloride 250 ml @ 250 mls/hr Q24H 02/14/21 13:30 02/18/21 14:29 DC 02/18/21 11:51 250 MLS/HR Benzonatate (Tessalon Perle) 100 mg [id number] 02/10/21 23:30 02/17/21 10:45 DC 02/16/21 22:07 100 MG Bupivacaine HCl/ Epinephrine Bitart (Sensorcain-Epi 0.5% Kit) 30 ml STK-MED ONCE 03/27/21 10:05 03/27/21 10:05 DC 03/27/21 13:12 16 ML Bupivacaine HCl/ Epinephrine Bitart (Sensorcain-Epi 0.5%-1:[id number] Mpf) 30 ml STK-MED ONCE 03/17/21 10:47 03/17/21 10:47 DC Carvedilol (Coreg) 6.25 mg BIDWMEALS 02/08/21 20:30 02/23/21 15:50 DC 02/23/21 08:06 6.25 MG Cefazolin Sodium/ Dextrose (Ancef 2gm Premix) 2 gm STK-MED ONCE 03/23/21 13:00 03/24/21 11:58 DC Ceftriaxone Sodium (Rocephin) 1 gm Q24H 02/14/21 13:00 02/23/21 07:34 DC 02/22/21 12:42 1 GM Cellulose (Surgicel Fibrillar 1x2) 1 each STK-MED ONCE 03/17/21 10:47 03/17/21 10:47 DC 03/17/21 11:56 1 EACH Daptomycin 480 mg/ Sodium Chloride 50 ml @ 100 mls/hr QMWF 03/23/21 16:00 03/26/21 10:29 DC 03/25/21 19:52 100 MLS/HR Dexamethasone Sodium Phosphate (Decadron) 2 mg 1X ONCE 02/27/21 09:00 02/26/21 07:15 DC Dexmedetomidine HCl 400 mcg/ Sodium Chloride 100 ml @ 0 mls/hr CONT PRN 02/27/21 09:45 03/28/21 13:00 23.2 MLS/HR Dextrose (Dextrose 50%-Water Syringe) 12.5 gm PRN Q15MIN PRN 03/01/21 13:00 03/01/21 12:55 12.5 GM Diphenhydramine HCl (Benadryl) 25 mg 1X PRN PRN 03/17/21 13:30 03/18/21 13:29 DC Docusate Sodium (Colace Solution) 100 mg BID 02/23/21 12:00 03/28/21 09:05 100 MG Docusate Sodium (Colace) 100 mg PRN DAILY PRN 02/07/21 08:45 02/23/21 10:47 DC Enalaprilat (Vasotec Inj) 0.625 mg Q6HRS 02/08/21 16:15 02/09/21 16:01 DC 02/09/21 13:42 0.625 MG Enoxaparin Sodium (Lovenox 30mg Syringe) 30 mg Q24H 03/08/21 09:00 03/12/21 15:38 DC 03/12/21 09:04 30 MG Enoxaparin Sodium (Lovenox 40mg Syringe) 40 mg BID 02/09/21 09:00 03/08/21 13:56 DC 03/08/21 08:26 40 MG Enoxaparin Sodium (Lovenox Per Pharmacy Prophylaxis Dosing) 1 each PRN DAILY PRN 02/09/21 06:45 03/12/21 15:38 DC Ephedrine Sulfate (ePHEDrine PF IN SALINE SYRINGE) 50 mg STK-MED ONCE 03/17/21 10:56 03/17/21 10:56 DC Famotidine (Pepcid Vial) 20 mg DAILY 03/10/21 09:00 03/28/21 09:05 20 MG Fentanyl Citrate (Fentanyl 2ml Vial) 100 mcg STK-MED ONCE 03/27/21 13:18 03/27/21 13:18 DC Fluconazole/ Sodium Chloride 100 ml @ 100 mls/hr Q24H 03/07/21 09:00 03/17/21 08:03 DC 03/16/21 08:29 100 MLS/HR Furosemide (Lasix) 40 mg 1X ONCE 03/26/21 10:00 03/26/21 10:01 DC 03/26/21 09:54 40 MG Glycerin/ Hypromellose/ Polyethylene (Artificial Tears) 1 drop PRN Q1HR PRN 02/17/21 10:00 Glycopyrrolate (Robinul) 1 mg STK-MED ONCE 03/27/21 14:07 03/27/21 14:07 DC Guaifenesin (Robitussin Dm) 10 ml PRN Q6HRS PRN 02/10/21 23:30 02/16/21 09:06 10 ML Haloperidol Lactate (Haldol Inj) 2.5 mg 1X ONCE 02/07/21 02:30 02/07/21 03:56 DC Heparin Sodium (Porcine) (Heparin Sodium) 5,000 unit Q8HRS 03/13/21 06:00 03/28/21 05:52 5,000 UNIT Hydralazine HCl (Apresoline Inj) 10 mg PRN Q4HRS PRN 02/11/21 12:15 03/28/21 05:55 10 MG Hydromorphone HCl (Dilaudid) 0.5 mg PRN Q10MIN PRN 03/27/21 06:00 03/28/21 05:59 DC Info (PHARMACY MONITORING -- do not chart) 1 each PRN DAILY PRN 03/27/21 09:45 UNV Insulin Glargine (Lantus Syringe) 5 unit BID 03/06/21 09:00 03/28/21 09:05 5 UNIT Insulin Human Lispro (HumaLOG) 12 units Q6HRS 02/20/21 12:00 02/28/21 15:38 DC 02/27/21 05:41 12 UNITS Insulin Human Regular 100 ml @ 10 mls/hr 1X ONCE 02/07/21 06:30 02/07/21 16:54 DC 02/07/21 09:31 6.5 MLS/HR Insulin Human Regular 100 unit/ Sodium Chloride 101 ml @ 0 mls/hr CONT PRN PRN 02/07/21 06:00 02/07/21 16:54 DC Labetalol HCl (Normodyne Iv Push) 10 mg PRN Q2HR PRN 02/08/21 00:45 03/26/21 21:14 10 MG Lactobacillus Rhamnosus (Culturelle) 1 cap BID 02/16/21 21:00 02/17/21 10:45 DC 02/16/21 22:02 1 CAP Lidocaine HCl (Buffered Lidocaine 1%) 3 ml STK-MED ONCE 03/07/21 13:25 03/07/21 13:25 DC Linezolid (Zyvox) 600 mg BID 03/05/21 09:00 03/12/21 07:00 DC 03/11/21 20:33 600 MG Linezolid/Dextrose 300 ml @ 300 mls/hr Q12HR 03/16/21 10:00 03/18/21 07:37 DC 03/17/21 21:44 300 MLS/HR Lisinopril (Prinivil) 20 mg DAILY 02/17/21 09:00 03/09/21 10:43 DC 02/27/21 09:10 20 MG Lorazepam (Ativan Inj) 0.5 mg PRN Q6HRS PRN 02/08/21 10:00 02/16/21 22:07 0.5 MG Meropenem 1 gm/ Sodium Chloride 100 ml @ 200 mls/hr Q24H 03/18/21 17:00 03/27/21 17:07 200 MLS/HR Methylprednisolone Sodium Succinate (SOLU-Medrol 125MG VIAL) 80 mg Q8HRS 02/25/21 09:00 02/26/21 07:09 DC 02/26/21 05:52 80 MG Metoclopramide HCl (Reglan Vial) 10 mg PRN Q6HRS PRN 02/08/21 00:45 02/12/21 15:51 10 MG Micafungin Sodium 100 mg/Dextrose 100 ml @ 100 mls/hr Q24H 03/21/21 18:00 03/25/21 10:27 DC 03/24/21 16:36 100 MLS/HR Midazolam HCl 100 ml @ 0 mls/hr CONT PRN 02/17/21 10:00 03/20/21 17:18 5 MLS/HR Morphine Sulfate (Morphine Sulfate) 1 mg PRN Q10MIN PRN 03/27/21 06:00 03/28/21 05:59 DC Multi-Ingred Cream/Lotion/Oil/ Oint (Artificial Tears Eye Ointment) 1 reji PRN Q1HR PRN 03/17/21 17:30 03/20/21 15:55 1 REJI Multivitamins/ Minerals Therapeutic (Centrum Multivit-Mineral Liq) 5 ml DAILY 03/14/21 09:00 03/28/21 09:05 5 ML Naloxone HCl (Narcan) 0.4 mg PRN Q2MIN PRN 03/27/21 14:30 Neostigmine Exline (Neostigmine Methylsulfate) 5 mg STK-MED ONCE 03/27/21 14:06 03/27/21 14:07 DC Norepinephrine Bitartrate 8 mg/ Dextrose 258 ml @ 21.711 mls/ hr CONT PRN 03/06/21 13:45 03/19/21 18:45 23.3 MLS/HR Nystatin (Nystop) 1 reji BID 03/02/21 21:00 03/28/21 09:05 1 REJI Ondansetron HCl (Zofran Odt) 4 mg 1X ONCE 02/06/21 23:30 02/06/21 23:31 DC 02/06/21 23:57 4 MG Ondansetron HCl (Zofran) 4 mg 1X ONCE 02/07/21 20:00 02/07/21 20:07 DC 02/07/21 20:06 4 MG Phenylephrine HCl (PHENYLEPHRINE in 0.9% NACL PF) 1 mg STK-MED ONCE 03/27/21 13:46 03/27/21 13:46 DC Piperacillin Sod/ Tazobactam Sod (Zosyn Per Pharmacy) 1 each PRN DAILY PRN 02/23/21 07:45 03/17/21 10:04 DC Piperacillin Sod/ Tazobactam Sod 2.25 gm/Sodium Chloride 50 ml @ 100 mls/hr Q8HRS 03/07/21 14:00 03/17/21 08:03 DC 03/17/21 05:58 100 MLS/HR Piperacillin Sod/ Tazobactam Sod 3.375 gm/Sodium Chloride 50 ml @ 100 mls/hr Q6HRS 03/14/21 18:00 Cancel Piperacillin Sod/ Tazobactam Sod 4.5 gm/Sodium Chloride 100 ml @ 200 mls/hr Q6HRS 02/23/21 08:00 03/07/21 08:18 DC 03/07/21 06:12 200 MLS/HR Potassium Chloride/Water 100 ml @ 100 mls/hr PRN Q1HR PRN 02/07/21 06:00 02/07/21 16:54 DC Potassium Chloride (Klor-Con) 40 meq 1X ONCE 02/13/21 12:00 02/13/21 12:01 DC 02/13/21 13:21 40 MEQ Prochlorperazine Edisylate (Compazine) 5 mg PACU PRN PRN 03/27/21 06:00 03/28/21 05:59 DC Propofol (Diprivan) 200 mg STK-MED ONCE 03/27/21 12:02 03/27/21 12:03 DC Remdesivir 100 mg/ Sodium Chloride 230 ml @ 460 mls/hr Q24H 02/15/21 12:00 02/18/21 12:29 DC 02/18/21 11:52 460 MLS/HR Remdesivir 200 mg/ Sodium Chloride 210 ml @ 210 mls/hr 1X ONCE 02/11/21 13:00 02/12/21 11:55 DC 02/11/21 14:33 210 MLS/HR Ringer's Solution 1,000 ml @ 30 mls/hr Q24H 03/27/21 06:00 03/27/21 17:59 DC Rocuronium Exline (Zemuron) 50 mg STK-MED ONCE 03/27/21 13:16 03/27/21 13:17 DC Sennosides (Senna) 17.2 mg PRN BID PRN 02/07/21 08:45 02/22/21 08:29 17.2 MG Sevoflurane (Ultane) 60 ml STK-MED ONCE 03/27/21 14:19 03/27/21 14:20 DC Sodium Chloride 1,000 ml @ 25 mls/hr Q24H 03/27/21 14:30 Sodium Chloride (Normal Saline Flush) 3 ml QSHIFT PRN 03/27/21 14:30 Succinylcholine Chloride (Anectine) 200 mg STK-MED ONCE 02/17/21 10:00 02/25/21 08:40 DC Vancomycin HCl (Vanco Per Pharmacy) 1 each PRN DAILY PRN 03/04/21 18:30 03/05/21 08:59 DC 03/04/21 19:47 1 EACH Vancomycin HCl (Vancomycin Trough Level) 1 each 1X ONCE 03/06/21 07:00 03/06/21 07:01 Cancel Vancomycin HCl 1.5 gm/Sodium Chloride 500 ml @ 250 mls/hr Q12H 03/05/21 07:30 03/05/21 08:58 DC Vancomycin HCl 1 gm/Sodium Chloride 250 ml @ 250 mls/hr Q12H 03/04/21 20:00 UNV Vancomycin HCl 2 gm/Sodium Chloride 500 ml @ 250 mls/hr 1X ONCE 03/04/21 19:00 03/04/21 20:59 DC 03/04/21 19:26 250 MLS/HR Vecuronium Exline (Norcuron Bolus) 6 mg PRN Q2HRS PRN 03/06/21 14:30 03/16/21 10:16 5 MG Vitamin A/Vitamin D (Vitamin A & D Ointment) 1 reji PRN Q1HR PRN 03/10/21 01:45 03/20/21 09:34 1 REJI Lab Laboratory Tests Test 03/27/21 23:24 03/28/21 05:20 03/28/21 05:35 03/28/21 07:22 Glucose (Fingerstick) 96 mg/dL (70-99) 108 mg/dL (70-99) White Blood Count 9.4 x10^3/uL (4.0-11.0) Red Blood Count 3.20 x10^6/uL (3.50-5.40) Hemoglobin 9.5 g/dL (12.0-15.5) Hematocrit 27.9 % (36.0-47.0) Mean Corpuscular Volume 87 fL (79-100) Mean Corpuscular Hemoglobin 30 pg (25-35) Mean Corpuscular Hemoglobin Concent 34 g/dL (31-37) Red Cell Distribution Width 15.2 % (11.5-14.5) Platelet Count 255 x10^3/uL (140-400) Neutrophils (%) (Auto) 51 % (31-73) Lymphocytes (%) (Auto) 15 % (24-48) Monocytes (%) (Auto) 9 % (0-9) Eosinophils (%) (Auto) 25 % (0-3) Basophils (%) (Auto) 0 % (0-3) Neutrophils # (Auto) 4.8 x10^3/uL (1.8-7.7) Lymphocytes # (Auto) 1.4 x10^3/uL (1.0-4.8) Monocytes # (Auto) 0.9 x10^3/uL (0.0-1.1) Eosinophils # (Auto) 2.3 x10^3/uL (0.0-0.7) Basophils # (Auto) 0.0 x10^3/uL (0.0-0.2) Sodium Level 134 mmol/L (136-145) Potassium Level 4.1 mmol/L (3.5-5.1) Chloride Level 98 mmol/L (98-107) Carbon Dioxide Level 27 mmol/L (21-32) Anion Gap 9 (6-14) Blood Urea Nitrogen 22 mg/dL (7-20) Creatinine 3.7 mg/dL (0.6-1.0) Estimated GFR (Cockcroft-Gault) 13.2 Glucose Level 116 mg/dL (70-99) Calcium Level 8.5 mg/dL (8.5-10.1) O2 Saturation 99 % (92-99) Arterial Blood pH 7.54 (7.35-7.45) Arterial Blood pCO2 at Patient Temp 28 mmHg (35-46) Arterial Blood pO2 at Patient Temp 142 mmHg (75-108) Arterial Blood HCO3 23 mmol/L (21-28) Arterial Blood Base Excess 1 mmol/L (-3-3) FiO2 45% vent Test 03/28/21 11:53 Glucose (Fingerstick) 93 mg/dL (70-99) Results All relevant outside records, renal labs, imaging studies, telemetry/EKG's were reviewed. Justicifation of Admission Dx: Justifications for Admission: Justification of Admission Dx: N/A GIGI CARMEN MD Mar 28, 2021 13:46
[2021-03-28] MEDS: IV NORMAL SALINE 1000ML BAG 1,000 ML IV SCH (14:30)
[2021-03-28] MEDS: MEROPENEM 1 GM in IV NORMAL SALINE 100ML 100 ML IV SCH (17:23)
[2021-03-28] MEDS: ATORVASTATIN CALCIUM 40 MG TABLET. PO SCH (21:11)
[2021-03-29] VITALS (24 sets, daily range): BP systolic 95–213; BP diastolic 41–98
[2021-03-29] MEDS: DEXMEDETOMIDINE 400 MCG in IV NORMAL SALINE 100ML 96 ML IV PRN ×7 (00:38→22:42)
[2021-03-29] MEDS: PROPOFOL 100 ML IV PRN ×7 (00:39→21:26)
[2021-03-29] MEDS: INSULIN LISPRO 300 UNITS/3 ML VIAL. SQ SCH ×4 (00:48→18:00)
[2021-03-29] MEDS: HEPARIN for SUB-Q USE 5,000 UNIT/ML VIAL. SQ SCH ×3 (06:00→21:20)
[2021-03-29 06:12] LABS: CALCIUM 8.2 mg/dL (8.5-10.1); CREATININE 4.4 mg/dL (0.6-1.0); GFR 10.8; POTASSIUM 3.8 mmol/L (3.5-5.1)
--- NOTE | 2021-03-29 06:59 | PDOC ---
PULMONARY PROGRESS NOTES DATE: 03/29/21 TIME: 06:59 Subjective trach on assist control mode. sedated on fentanyl prop precedex small ett secretion s/p lap G-tube 03/27 Vitals Vital Signs Date Time Temp Pulse Resp B/P (MAP) Pulse Ox O2 Delivery O2 Flow Rate FiO2 03/29/21 04:36 100 Ventilator 03/29/21 04:00 52 18 166/75 (105) 03/29/21 00:00 96.7 96.7 03/28/21 13:25 90.5 Comments on vent sedated trach General: Alert, No acute distress Lungs: Crackles, Other (On vent with trach collar in place) Cardiovascular: S1 Abdomen: Soft, Non-tender Skin: Warm Labs Laboratory Tests Test 03/27/21 09:00 03/27/21 11:12 03/27/21 23:24 03/28/21 05:20 White Blood Count 6.2 x10^3/uL (4.0-11.0) Red Blood Count 3.09 x10^6/uL (3.50-5.40) Hemoglobin 9.2 g/dL (12.0-15.5) Hematocrit 27.1 % (36.0-47.0) Mean Corpuscular Volume 88 fL (79-100) Mean Corpuscular Hemoglobin 30 pg (25-35) Mean Corpuscular Hemoglobin Concent 34 g/dL (31-37) Red Cell Distribution Width 15.2 % (11.5-14.5) Platelet Count 211 x10^3/uL (140-400) Neutrophils (%) (Auto) 43 % (31-73) Lymphocytes (%) (Auto) 23 % (24-48) Monocytes (%) (Auto) 6 % (0-9) Eosinophils (%) (Auto) 27 % (0-3) Basophils (%) (Auto) 1 % (0-3) Neutrophils # (Auto) 2.7 x10^3/uL (1.8-7.7) Lymphocytes # (Auto) 1.4 x10^3/uL (1.0-4.8) Monocytes # (Auto) 0.4 x10^3/uL (0.0-1.1) Eosinophils # (Auto) 1.7 x10^3/uL (0.0-0.7) Basophils # (Auto) 0.0 x10^3/uL (0.0-0.2) Glucose (Fingerstick) 106 mg/dL (70-99) 96 mg/dL (70-99) 108 mg/dL (70-99) Test 03/28/21 05:35 03/28/21 07:22 03/28/21 11:53 03/28/21 19:50 White Blood Count 9.4 x10^3/uL (4.0-11.0) Red Blood Count 3.20 x10^6/uL (3.50-5.40) Hemoglobin 9.5 g/dL (12.0-15.5) Hematocrit 27.9 % (36.0-47.0) Mean Corpuscular Volume 87 fL (79-100) Mean Corpuscular Hemoglobin 30 pg (25-35) Mean Corpuscular Hemoglobin Concent 34 g/dL (31-37) Red Cell Distribution Width 15.2 % (11.5-14.5) Platelet Count 255 x10^3/uL (140-400) Neutrophils (%) (Auto) 51 % (31-73) Lymphocytes (%) (Auto) 15 % (24-48) Monocytes (%) (Auto) 9 % (0-9) Eosinophils (%) (Auto) 25 % (0-3) Basophils (%) (Auto) 0 % (0-3) Neutrophils # (Auto) 4.8 x10^3/uL (1.8-7.7) Lymphocytes # (Auto) 1.4 x10^3/uL (1.0-4.8) Monocytes # (Auto) 0.9 x10^3/uL (0.0-1.1) Eosinophils # (Auto) 2.3 x10^3/uL (0.0-0.7) Basophils # (Auto) 0.0 x10^3/uL (0.0-0.2) Sodium Level 134 mmol/L (136-145) Potassium Level 4.1 mmol/L (3.5-5.1) Chloride Level 98 mmol/L (98-107) Carbon Dioxide Level 27 mmol/L (21-32) Anion Gap 9 (6-14) Blood Urea Nitrogen 22 mg/dL (7-20) Creatinine 3.7 mg/dL (0.6-1.0) Estimated GFR (Cockcroft-Gault) 13.2 Glucose Level 116 mg/dL (70-99) Calcium Level 8.5 mg/dL (8.5-10.1) O2 Saturation 99 % (92-99) Arterial Blood pH 7.54 (7.35-7.45) Arterial Blood pCO2 at Patient Temp 28 mmHg (35-46) Arterial Blood pO2 at Patient Temp 142 mmHg (75-108) Arterial Blood HCO3 23 mmol/L (21-28) Arterial Blood Base Excess 1 mmol/L (-3-3) FiO2 45% vent Glucose (Fingerstick) 93 mg/dL (70-99) 111 mg/dL (70-99) Test 03/29/21 00:14 03/29/21 05:30 Glucose (Fingerstick) 160 mg/dL (70-99) Sodium Level 133 mmol/L (136-145) Potassium Level 3.8 mmol/L (3.5-5.1) Chloride Level 98 mmol/L (98-107) Carbon Dioxide Level 26 mmol/L (21-32) Anion Gap 9 (6-14) Blood Urea Nitrogen 30 mg/dL (7-20) Creatinine 4.4 mg/dL (0.6-1.0) Estimated GFR (Cockcroft-Gault) 10.8 Glucose Level 186 mg/dL (70-99) Calcium Level 8.2 mg/dL (8.5-10.1) Laboratory Tests Test 03/28/21 07:22 03/28/21 11:53 03/28/21 19:50 03/29/21 00:14 O2 Saturation 99 % (92-99) Arterial Blood pH 7.54 (7.35-7.45) Arterial Blood pCO2 at Patient Temp 28 mmHg (35-46) Arterial Blood pO2 at Patient Temp 142 mmHg (75-108) Arterial Blood HCO3 23 mmol/L (21-28) Arterial Blood Base Excess 1 mmol/L (-3-3) FiO2 45% vent Glucose (Fingerstick) 93 mg/dL (70-99) 111 mg/dL (70-99) 160 mg/dL (70-99) Test 03/29/21 05:30 Sodium Level 133 mmol/L (136-145) Potassium Level 3.8 mmol/L (3.5-5.1) Chloride Level 98 mmol/L (98-107) Carbon Dioxide Level 26 mmol/L (21-32) Anion Gap 9 (6-14) Blood Urea Nitrogen 30 mg/dL (7-20) Creatinine 4.4 mg/dL (0.6-1.0) Estimated GFR (Cockcroft-Gault) 10.8 Glucose Level 186 mg/dL (70-99) Calcium Level 8.2 mg/dL (8.5-10.1) Medications Active Scripts Medications Dose Route/Sig Max Daily Dose Days Date Category Novolog Flexpen (Insulin Aspart) 100 Unit/1 Ml Insuln.pen 3-7 SQ TIDACHC 02/07/21 Reported Lisinopril 5 Mg Tablet 1 Tab PO DAILY 02/07/21 Reported Lantus Solostar (Insulin Glargine,Hum.rec.anlog) 100 Unit/1 Ml Insuln.pen 5 Unit SQ QHS 04/09/15 Reported Atorvastatin Calcium 40 Mg Tablet 40 Mg PO HS 04/09/15 Reported Comments Chest x-ray reviewed 03/26/2021. Unchanged bilateral diffuse interstitial infiltrates 03/20/21 CXR IMPRESSION: Continued presence of diffuse pulmonary opacities bilaterally without interval improvement. Impression . IMPRESSION: 1. Acute hypoxic respiratory failure secondary to COVID-19 viral pneumonia/acute lung injury and early acute respiratory distress syndrome. S/P intubation 02/17/21. Status post tracheostomy. 2. Nonsmoker. 3. Abnormal chest x-ray consistent with COVID-19 viral pneumonia.--- No significant change 4. Diabetic ketoacidosis--resolved 5. Underlying obesity contributing to hypoxia as well. 6. BOB . hemodialysis started 03/07 7. Fever, per ID--resolved 8. Abnormal chest x-ray with diffuse interstitial infiltrates compatible with viral pneumonia 9. [place] in the sputum is a contamination 10. Septic shock--resolved 11. s/p lap G-tube 03/27 Plan . Updated 03/29/21 has episode of agitation and cough cont vent support setting reviewed decrease sedation start weaning as tolerated s/p lap G-tube 03/27 As needed Lasix Follow CXR/ABG Follow nephrology recs Monitor HBG , follow GI recs Follow ID recs for ABX Hemodialysis per renal DVT/GI PPX D/W RN and RT Updated 03/28/21 cont vent support setting reviewed decrease sedation start weaning as tolerated s/p lap G-tube 03/27 As needed Lasix Follow CXR/ABG Follow nephrology recs Monitor HBG , follow GI recs Follow ID recs for ABX Hemodialysis per renal DVT/GI PPX D/W RN and RT Updated 03/27/21 Continue daily pressure support trials. Will use higher pressure support for improved compliance. Surgical PEG tube is a schedule today. Currently on Precedex drip. As needed Lasix Follow CXR/ABG Follow nephrology recs Monitor HBG , follow GI recs Follow ID recs for ABX Hemodialysis per renal DVT/GI PPX D/W RN and RT Updated 03/26/21 Continue daily pressure support trials. Will use higher pressure support for improved compliance. Likely trial of trach shield trial, once down to pressure support of 10. Patient received 1 dose of Lasix today to see an improvement in her oxygenation Surgery consulted for surgical PEG. Scheduled for Tuesday Currently on Precedex drip. Follow CXR/ABG Follow nephrology recs Monitor HBG , follow GI recs Follow ID recs for ABX DVT/GI PPX D/W RN and RT Updated 03/25/21 Continue daily pressure support trials. Currently on pressure support of 16. We will wean the pressure support down to 10. Likely trial of trach shield in the next 24 hours Surgery consulted for surgical PEG. Currently on Precedex drip. Follow CXR/ABG Follow nephrology recs Monitor HBG , follow GI recs Follow ID recs for ABX DVT/GI PPX D/W RN and RT Updated 03/24/21 Continue current vent support, currently on 40% FiO2 and volume control mechan ical ventilation. We will try CPAP trials. Surgery consulted for surgical PEG. Currently on Precedex drip. Follow CXR/ABG Follow nephrology recs Monitor HBG , follow GI recs Follow ID recs for ABX DVT/GI PPX D/W RN and RT Updated 03/23/21 Continue current vent support, currently on 45% in PC mode. We will ask respiratory to switch her to volume control mode. Will monitor peak airway pressures. Currently on Precedex drip. Follow CXR/ABG Follow nephrology recs Monitor HBG , follow GI recs Follow ID recs for ABX DVT/GI PPX D/W RN and RT PEG tube is a scheduled for today and after that she should be stable for LTAC transfer once accepted Updated 03/22/21 Continue current vent support, currently on 45% in PC mode. We will ask respiratory to switch her to volume control mode in a.m. Did not tolerated coming off sedation well with increasing blood pressure. Currently on low-dose fentanyl and Precedex drip. Follow CXR/ABG Follow nephrology recs Monitor HBG , follow GI recs Follow ID recs for ABX DVT/GI PPX D/W RN and RT PEG tube is a scheduled for tomorrow and after that she should be stable for LTAC transfer Updated 03/21/21 Continue current vent support, currently on 45% in PC mode Discontinue sedation and assess mental status. Once more awake CPAP trial. Follow CXR/ABG Follow nephrology recs Monitor HBG , follow GI recs Follow ID recs for ABX DVT/GI PPX D/W RN and RT Updated 03/20/21 Continue current vent support, currently on 45% in PC mode will reduce to 40% and change to 1:2 IE ratio Reduce sedation and assess mental status Follow CXR/ABG Follow nephrology recs Monitor HBG , follow GI recs Follow ID recs for ABX DVT/GI PPX D/W RN and RT Updated 03/[address] Whitley On exam she appears to be less puffy Finish course of remdesivir and dexamethasone Hemodialysis DVT GI prophylaxis Off pressors Chest x-ray reviewed, no significant change, 03/18 updated 03/18 Continue current mechanical support Hemodialysis per Dr. Sims Nutritional support DVT GI prophylaxis SHERRIE MARMOLEJO MD Mar 29, 2021 06:59
--- NOTE | 2021-03-29 07:16 | PDOC ---
[employer] PROGRESS NOTE Date of Service DOS: DATE: 03/29/21 TIME: 07:11 Chief Complaint Chief Complaint CC: Covid-19 DKA Hypotension Nausea Vomiting Combined metabolic and respiratory acidosis Acute electrolyte derangementhyponatremia, hypochloremia due to volume depletion Hyperglycemia BOB due to ATN, requiring dialysis Erythrocytosis Candiduria Sacral decubitus ulcer S/P Trach on (03/17/21) Trach cultures positive for [place] albicans and now acinebacter ursungi History of Present Illness History of Present Illness Ms Borges is a 46 year old female who presented with nausea/vomiting since 7 AM 02/06/2021 in the morning. Patient stated that her recently tested positive for Covid. She states that he "coughed in my face because he thought it was funny." She reports subjective fevers and chills and nausea/vomiting. Denies sore throat, cough, shortness of breath. No chest pain. Does have some upper abdominal discomfort after vomiting, that she attributes to muscular strain. She was not vaccinated for Covid. 02/08: No acute events overnight. Patient seen and examined bedside and resting comfortably. Continues to complain of nausea not able to tolerate any diet at this time. Saturating 98% on room air. Patient's chart, labs, images were reviewed and discussed with RN 02/09: Afebrile, currently breathing on room air. Still with complaints of nausea and vomiting x3 today. States that she has history of similar symptoms that have been mildly improved with IV Dilaudid. 02/10: Patient febrile today with T-max 102.2 F. She still admits to nausea, denies any further vomiting. We will continue to provide supportive care and monitor for any recurrent fevers overnight. Patient continues to improve may discharge tomorrow to continue self-isolation. 02/11: Febrile overnight, T-max 102.3 F. She did become hypoxic overnight, currently breathing on 4 L nasal cannula. Also admits to associated vomiting or diarrhea overnight. Discussed with RN, will initiate remdesivir and closely monitor LFTs. IV Decadron, and prophylactic antibiotics. 02/12: Low-grade fever overnight, T-max 99.7. Currently breathing on room air. Will discontinue remdesivir, steroids, and antibiotics; will observe overnight. Still with complaints of vomiting x1 and diarrhea. We will continue to provide supportive care and hope to discharge in the next day or so. 02/13: Afebrile. Still complains of intermittent diarrhea. At the time of my evaluation she was breathing on 6 L nasal cannula; this is somewhat misleading as patient states that she did not feel short of breath but was placed on 6 L by nursing staff overnight. 02/14: Afebrile, currently breathing on 8 L nasal cannula. There has been some misleading documentation, chart oxygen this patient is requiring. Discussed with RN, will resume remdesivir to complete total of 5 days. Continue to monitor LFTs. Will add steroids, Rocephin, and azithromycin. 02/15: Afebrile. Became much more hypoxic overnight, requiring BiPAP. At the time of my evaluation she is still breathing on BiPAP. Consultation was placed to pulmonology. Had discussion with Dr. Myrick about initiating Tocilizumab 02/16: No acute events overnight. Patient becoming more hypoxic saturating 94% and requiring BiPAP. Patient will be transferred to the ICU at this time. For worsening clinical status. Discussed with pulmonary. Patient's chart, labs, images were reviewed and discussed with RN 02/17: Transferred to ICU yesterday afternoon. Seen and examined at bedside she remains on 100% FiO2 on BiPAP. Respirations do appear somewhat labored. Suspec t intubation may be impending. We will closely monitor. Increase lisinopril to 20 today. 02/18: Patient required intubation yesterday afternoon. Saw and examined this morning. She is intubated and sedated. Increase insulin today. Covid protocol ordered. Wean as tolerated. Plan of care discussed with bedside nurse. 02/19: Bedside. She remains intubated and sedated. Continue Covid protocol. Wean oxygen sedation as tolerated. Pulmonary following. Plan of care discussed with bedside RN. 02/20: Patient seen and examined at bedside. She remains intubated and sedated. No major clinical changes. Continue current treatment. Pulmonary following. Plan of care discussed with bedside RN. 02/21: Patient seen and examined at bedside. Remains intubated and sedated date and admission clinical changes. Increase free water flushes today due to hypernatremia. Plan of care discussed with bedside nurse. 02/22: Patient seen and examined at bedside. O2 requirement actually improving, although remains intubated. Possible SBT in the coming days. Hypernatremia improving. Plan of care discussed bedside RN. 02/23: Patient remains in ICU on ventilator with FiO2 100%, PEEP 7. Repeat chest x-ray yesterday showed diffuse bilateral pulmonary opacities with no interval improvement. Will discontinue Rocephin and initiate Zosyn. We will continue IV steroids for a full 10-day course 02/24: Afebrile. On vent with FiO2 40%, PEEP 6. Her Coreg has been held due to persistent bradycardia. No documented history of systolic heart failure or previous echocardiogram. Will need to obtain echocardiogram prior to discharge. Continue IV steroids and antibiotics. 02/25: Afebrile. Remains ventilated with FiO2 45%, PEEP 6. Chest x-ray today showed slight improvement of the pulmonary infiltrates, no pneumothorax. Completed 10-day course of IV Decadron. Will initiate slow Solu-Medrol taper. Continue IV Zosyn. Continue supportive care. 02/26: Afebrile. On vent with FiO2 45%, PEEP 6. Completed 10 days of IV Decadron. Will continue IV Zosyn. Continue supportive care. Critical care time 30 minutes spent reviewing charts, reviewing imaging, reviewing labs, discussion with RN. 02/27: Afebrile. On vent with FiO2 45%, PEEP 6. Completed 10 days of steroids and completed remdesivir. Continue with IV Zosyn. CPAP trial yesterday. Continue NG tube and supportive care. 02/28:. Patient remains on vent with FiO2 40%, PEEP 5. Afebrile. Completed steroids and remdesivir. Some noted hypoglycemia overnight, will de-escalate basal insulin. Continue IV Zosyn. Ventilator management per pulmonology. Continue NG tube and supportive care. 03/01: On vent with FiO2 40%, PEEP 5. Afebrile. Completed steroids and remdesivir. Blood glucose well controlled. Continue empiric antibiotics with Zosyn. Ventilator management per pulmonology. Continue NG tube and supportive care. 03/02: No acute events overnight. Patient hypotensive the morning due to oversedation. Will wean off sedation and keep antihypertensive medications on board. Currently saturating 100% on vent settings of 18/450/40/5. Will attempt spontaneous breathing trial today to see how patient does. 03/03: No acute events overnight. Patient saturating 98% on vent settings of 18/450/40/5. Will defer spontaneous breathing trials to pulmonary at this time. Patient's chart, labs, images were reviewed and discussed with RN 8: No acute events overnight. Patient saturating 9 9% on vent settings of 18/450/30/5. Patient currently is unable to tolerate weaning. Per pulmonary. Patient's chart, labs, images were reviewed and discussed with RN 03/05: No acute events overnight. Patient is saturating 97% on vent settings of 18/450/55/5. Her FiO2 needs to be increased due to abnormal ABG with 7.3 //24. Patient's chart, labs, images were reviewed and discussed with RN 8: No acute events overnight. Patient saturating 94% on vent settings of 18/450/55/5. Chest x-ray showing increase in pulmonary infiltrates. Wound care is consulted for decubitus ulcer patient's chart, labs, images were reviewed and discussed with RN 03/07: No acute events overnight. Patient saturating 94% on vent settings of 20/450/70/8. Patient now heading into renal failure with her creatinine bumped up from 1.5-4.2. Decreased urine output. Plan for hemodialysis today and temporary catheter placement and nephrology is consulted. 03/08: No acute events overnight. Patient did have a nausea vomiting episode and tube feeds were held. KUB repeat shows NG tube still in the stomach. Will resume tube feeds at trickle and advance to goal today. Will start hemodialysis soon. 03/09: Seen on vent 20/450/60%/8. ABG 7.2 WBC 11.4, Hb 7.4, platelets 188, NA 131, K4.9, BUN 48, CR 51, glucose 199, phosphorus 7.9, mag 2.2, AST 265 ALT 219, albumin 1.1. Chest radiograph appears unchanged from prior. Dialysis x1 today 03/10: Afebrile. Seen on vent, 20/450/60/7 with ABG 7.3 . Tolerated dialysis well on 03/09. LFTs similar. 03/11: Afebrile. Seen on vent, sedated. Still requiring Levophed for BP support. WBC 16.7, Hb 8.1, NA 130, ABG 7.3 on 55% FiO2 PEEP 6. On Zosyn and Zyvox Diflucan. Dialysis today 03/12: Afebrile. Still requiring Levophed for BP support sedated with Versed febrile Precedex. WBC 16.1, Hb 8.5, platelets 185, NA 133. Trach plan tentatively 03/17. O2 saturations 93% on 50% FiO2 PEEP 6. ABG 7. On Zosyn and Zyvox Diflucan. 03/13: Afebrile. Still on Levophed for BP support lightly sedated. 7. on 45% FiO2. Plan for dialysis today. On Zosyn and Zyvox Diflucan. More swollen today. 03/14: Afebrile. Weaning down off Levophed. WBC 14.9 NA 132. O2 saturations 92% on 45% FiO2 PEEP 5. Afebrile. O2 saturations 91% on FiO2 45% PEEP 6. Continued on Zosyn and Zyvox Diflucan. Tentative trach planned 03/17/2021 CC time 31 minutes 03/16/21: Patient seen and examined in ICU. Periorbital as well as upper and lower extremity edema noted. OG feed running at 30cc/hr. Still on vent on pressure control with a rate of 24 with 45% FiO2. Patient has rectal bag. Currently she has 98% O2 sat. Currently sedated with Dexmedetomidine, Propofol, Versed, and Fentanyl. Discussed with RN. Chart reviewed. 03/17/21: Patient was seen and examined in the ICU today. Periorbital edema as well as abdominal and mons pubis edema was noted. Patient still on vent on pressure control with Fi02 of 45% plus 6 PEEP. Patient had rectal bag. Currently sedated on Dexmedetomidine, Propofol, Versed, and Fentanyl. Discussed with RN. Chart reviewed. 03/18/21: Patient seen and examined in ICU. On vent via trach that was placed yesterday. Vent settings are Pressure Control of 40 with FiO2 of 45% and 6 PEEP. Trach clean and dry. Orbital swelling still present. Pupils are sluggish. Patient on TPN running at 30cc/hr. Kern to bedside and rectal bag in place. Current O2 sat at 94%. Sedated on Dexmedetomidine, Propofol, Versed, and Fentanyl. Discussed with RN. Chart reviewed. 03/19/21: Patient was seen and examined in the ICU today. Currently on vent via trach on pressure control of 42, rate of 24, FiO2 of 45%, and 6 PEEP. O2 sat is at 97% while patient is being examined. Trach is clean and dry. PICC line is in place on right arm. Periorbital swelling has decreased slightly since examined yesterday. Patient is sedated on Dexmedetomidine, Propofol, Versed, and Fentanyl. Discussed with RN. Chart reviewed. 03/20/21: Patient seen and examined in the ICU. Periorbital edema is slightly decreased since yesterday. O2 sat while being examined was 93%. NG tube in place and running at 30cc/hr. Patient on vent via trach on pressure control of 40 with FiO2 of 45 and rate of 24. Sedated on Dexmedetomidine, Propofol, Versed, and Fentanyl. PICC line in place. Kern to bedside. Rectal bag present. Discussed with RN. Chart reviewed. 03/21/21: Patient was seen and examined in the ICU today. She was semi-sedated.. She was on Dexmedetomidine and Fentanyl. We are holding the Propofol. Her eyes were periodically open but she was not making meaningful eye contact or tracking. On vent via trach with pressure control of 40 and FiO2 at 45. Rate was 24. PEEP was 5. Trach was clean and dry. While being examined, her O2 sat was 94%. Rectal bag and Kern to bedside in place. NG tube in place and feeding at 30cc/hr. IV fluids still running. Levophed has been stopped. Discussed with RN. Chart reviewed. 03/22/21: Patient was seen and examined in the ICU. She was semi-sedated on Propofol and Dexmedetomidine. Her eyes were open but she did not make meaningful eye contact. Her blood pressure was elevated (198/102) while being examined and she had just been given hydralazine to lower it. There are plans to place a PEG tube tomorrow. Currently on vent via trach on pressure control of 40 with FiO2 of 45%, 5 PEEP, and a rate of 24. Current O2 sat is 98%. She is feeding through an NG tube at 30cc/hr. Rectal bag and Kern to bedside present. SCDs on patient for DVT prophylaxis. She did not do her daily dialysis today but the plan is to start back on that tomorrow. Discussed with RN. Chart reviewed. 03/23/2021: Patient remains in ICU on ventilator. FiO2 40%, PEEP 5. Trach cultures positive for [place] albicans and acinebacter ursungi. We will continue treatment with IV antibiotics and micafungin, per ID. HD per nephrology. Plans for PEG tube placement today. 30 minutes critical care time was spent reviewing charts, reviewing labs, reviewing imaging, discussion with RN. 03/24/2021: Afebrile. On vent with FiO2 45%, PEEP 5. Had attempted PEG placement per GI yesterday, but unable to locate safe path for PEG; will consider surgical opinion. Once PEG is in place she should be stable for LTAC transfer when accepted. Continue antibiotics, per ID. 30 minutes critical care time was spent reviewing charts, reviewing labs, reviewing imaging, discussion with RN. 03/25/2021: Febrile overnight with T-max 101.5 F. On vent with FiO2 45%, PEEP 5. Surgery has been consulted with tentative plans for laparoscopic versus open gastrostomy placement tomorrow. Trach cultures positive for [place] albicans and now acinebacter ursungi; will continue antibiotic management, per ID. Hemodialysis, per nephrology. Patient needing LTAC placement, but currently without benefits. grommet worker following for discharge planning. Critical care time 30 minutes spent reviewing charts, reviewing labs, reviewing imaging, discussion with RN. 03/26/2021: Febrile today with T-max 100.5 F. Awake on vent with FiO2 45%, PEEP 5. When I ask if she remembers any she nods. G-tube placement scheduled for tomorrow, per general surgery. Chest x-ray today showed slight interval increase in diffuse infiltrate. Continue antibiotic management, per ID. Hemodialysis per nephrology. Reportedly did not tolerate CPAP trial this morning. grommet worker following for LTAC placement. Critical care time 30 minutes spent reviewing charts, reviewing labs, reviewing imaging, discussion with RN. 03/27/2021: On vent with FiO2 45%, PEEP 5. Afebrile today. Continue treatment of acute renal failure requiring HD, per nephrology. Monitor kidney function for recovery. G-tube placement scheduled for today, per general surgery. Likely LTAC placement soon, but this is been a difficult as she is self-pay without benefits; social insurance adviser following. Critical care time 30 minutes spent reviewing charts, reviewing labs, reviewing imaging, discussion with RN. 03/28/2021: Afebrile. On vent with FiO2 40%, PEEP 5. Had laparoscopic gastrostomy tube placed yesterday, per general surgery. Continue treatment of acute renal failure requiring HD, per nephrology. Continue IV antibiotics, per ID. Likely LTAC placement soon, but this is been a difficult as she is self-pay without benefits; social insurance adviser following. Critical care time 30 minutes spent reviewing charts, reviewing labs, reviewing imaging, discussion with RN. 03/29/2021: Afebrile. On vent with FiO2 45%, PEEP 5. S/P laparoscopic gastrostomy tube; tube feeds running. HD, per nephrology. Continue meropenem, per ID. Anticipate LTAC placement soon now that PEG has being placed; social insurance adviser helping in these regards. Critical care time 30 minutes spent reviewing charts, reviewing labs, reviewing imaging, discussion with RN. Vitals/I&O Vitals/I&O: Vital Signs Date Time Temp Pulse Resp B/P (MAP) Pulse Ox O2 Delivery O2 Flow Rate FiO2 03/29/21 04:36 100 Ventilator 03/29/21 04:00 52 18 166/75 (105) 03/29/21 00:00 96.7 96.7 03/28/21 13:25 90.5 I & O 03/28/21 03/28/21 03/29/21 15:00 23:00 07:00 Intake Total 0 ml 801.7 ml 197 ml Output Total 75 ml 30 ml 250 ml Balance -75 ml 771.7 ml -53 ml Physical Exam Physical Exam: GENERAL: Intubated and sedated. Trach HEENT: Normocephalic, atraumatic. Anicteric. Slight bilateral periorbital edema. Neck right IJ HDC clean LUNGS: Rhonchi. HEART: S1, S2. No murmurs. ABDOMEN: Obese, soft. Bowel sounds present. Nontender, nondistended. Abdominal and mons pubis edema noted. GENITOURINARY: Kern and fecal tube in place. EXTREMITIES: Edema present no cyanosis. CENTRAL NERVOUS SYSTEM: Intubated. PSYCHIATRIC: Unable to assess. Derm has pressure wounds wound pictures noted in chart. Generalized rash, PICC line , right IJ HDC clean General: No acute distress Heart: Regular rate, Normal S1, Normal S2, No murmurs, Gallops Lungs: Crackles, Other (On vent with trach collar in place) Abdomen: Soft, Other (G-tube in place) Extremities: Other (ANASARCA) Skin: No rashes, No significant lesion Labs Labs: Laboratory Tests Test 03/28/21 07:22 03/28/21 11:53 03/28/21 19:50 03/29/21 00:14 O2 Saturation 99 % (92-99) Arterial Blood pH 7.54 (7.35-7.45) Arterial Blood pCO2 at Patient Temp 28 mmHg (35-46) Arterial Blood pO2 at Patient Temp 142 mmHg (75-108) Arterial Blood HCO3 23 mmol/L (21-28) Arterial Blood Base Excess 1 mmol/L (-3-3) FiO2 45% vent Glucose (Fingerstick) 93 mg/dL (70-99) 111 mg/dL (70-99) 160 mg/dL (70-99) Test 03/29/21 05:30 Sodium Level 133 mmol/L (136-145) Potassium Level 3.8 mmol/L (3.5-5.1) Chloride Level 98 mmol/L (98-107) Carbon Dioxide Level 26 mmol/L (21-32) Anion Gap 9 (6-14) Blood Urea Nitrogen 30 mg/dL (7-20) Creatinine 4.4 mg/dL (0.6-1.0) Estimated GFR (Cockcroft-Gault) 10.8 Glucose Level 186 mg/dL (70-99) Calcium Level 8.2 mg/dL (8.5-10.1) Assessment and Plan Assessmemt and Plan Problems Medical Problems: (1) Ketoacidosis Status: Acute Comment Review of Relevant I have reviewed the following items mazin (where applicable) has been applied. Justifications for Admission Other Justification SANDI ALCARAZ MD Mar 29, 2021 07:16
[2021-03-29 07:24] LABS: BASO # 0.3 x10^3/uL (0.0-0.2); BASO % 4 % (0-3); EOS # 2.7 x10^3/uL (0.0-0.7); EOS % 35 % (0-3); HEMOGLOBIN 9.5 g/dL (12.0-15.5); LYMPH # 1.1 x10^3/uL (1.0-4.8); LYMPH % 14 % (24-48); MEAN CORPUSCULAR HEMOGLOBIN 30 pg (25-35); MEAN CORPUSCULAR HGB CONC 33 g/dL (31-37); MEAN CORPUSCULAR VOLUME 90 fL (79-100); MONO # 0.6 x10^3/uL (0.0-1.1); MONO % 8 % (0-9); NEUT % 38 % (31-73); PLATELET COUNT 282 x10^3/uL (140-400); RED BLOOD COUNT 3.24 x10^6/uL (3.50-5.40); RED CELL DISTRIBUTION WIDTH 14.8 % (11.5-14.5); WHITE BLOOD COUNT 7.7 x10^3/uL (4.0-11.0)
--- NOTE | 2021-03-29 08:05 | PDOC ---
Infectious Disease Note Subjective Subjective Pt intubated Patient is awake appears to follow some commands Status post tracheostomy Vital Sign Vital Signs Vital Signs Date Time Temp Pulse Resp B/P (MAP) Pulse Ox O2 Delivery O2 Flow Rate FiO2 03/29/21 07:31 Mechanical Ventilator 03/29/21 07:00 58 18 165/85 (111) 100 03/29/21 05:00 96.4 96.4 03/28/21 13:25 90.5 Physical Exam PHYSICAL EXAM GENERAL: Intubated and sedated. Trach HEENT: Normocephalic, atraumatic. Anicteric. Slight bilateral periorbital edema. Neck right IJ HDC clean LUNGS: Rhonchi. HEART: S1, S2. No murmurs. ABDOMEN: Obese, soft. Bowel sounds present. Nontender, nondistended. Abdominal and mons pubis edema noted. GENITOURINARY: Kern and fecal tube in place. EXTREMITIES: Edema present no cyanosis. CENTRAL NERVOUS SYSTEM: Intubated. PSYCHIATRIC: Unable to assess. Derm has pressure wounds wound pictures noted in chart. Generalized rash, PICC line , right IJ HDC clean Labs Lab Laboratory Tests Test 03/28/21 11:53 03/28/21 19:50 03/29/21 00:14 03/29/21 05:30 Glucose (Fingerstick) 93 mg/dL (70-99) 111 mg/dL (70-99) 160 mg/dL (70-99) White Blood Count 7.7 x10^3/uL (4.0-11.0) Red Blood Count 3.24 x10^6/uL (3.50-5.40) Hemoglobin 9.5 g/dL (12.0-15.5) Hematocrit 29.0 % (36.0-47.0) Mean Corpuscular Volume 90 fL (79-100) Mean Corpuscular Hemoglobin 30 pg (25-35) Mean Corpuscular Hemoglobin Concent 33 g/dL (31-37) Red Cell Distribution Width 14.8 % (11.5-14.5) Platelet Count 282 x10^3/uL (140-400) Neutrophils (%) (Auto) 38 % (31-73) Lymphocytes (%) (Auto) 14 % (24-48) Monocytes (%) (Auto) 8 % (0-9) Eosinophils (%) (Auto) 35 % (0-3) Basophils (%) (Auto) 4 % (0-3) Neutrophils # (Auto) 3.0 x10^3/uL (1.8-7.7) Lymphocytes # (Auto) 1.1 x10^3/uL (1.0-4.8) Monocytes # (Auto) 0.6 x10^3/uL (0.0-1.1) Eosinophils # (Auto) 2.7 x10^3/uL (0.0-0.7) Basophils # (Auto) 0.3 x10^3/uL (0.0-0.2) Sodium Level 133 mmol/L (136-145) Potassium Level 3.8 mmol/L (3.5-5.1) Chloride Level 98 mmol/L (98-107) Carbon Dioxide Level 26 mmol/L (21-32) Anion Gap 9 (6-14) Blood Urea Nitrogen 30 mg/dL (7-20) Creatinine 4.4 mg/dL (0.6-1.0) Estimated GFR (Cockcroft-Gault) 10.8 Glucose Level 186 mg/dL (70-99) Calcium Level 8.2 mg/dL (8.5-10.1) Micro GRAM STAIN EVALUATION Final Final This specimen is of good quality and is acceptable for routine bacterial culture. Culture results to follow. NO ORGANISMS SEEN. SQUAMOUS EPI CELL:RARE PMN (WBCs):MODERATE Unless otherwise specified, Testing Performed by: [address] [address] For Inquires, the Physician may contact the Microbiology department at [phone] RESPIRATORY CULTURE Final Final MODERATE GRAM NEGATIVE RODS on 03/18/21 at 1120 FINAL ID= [ACINETOBACTER [email or web address].] ACINETOBACTER URSINGII. ANTIMICROBIAL SUSCEPTIBILITY Final Comment NEG SAGE 56 ACINETOBACTER URSINGII. ANTIBIOTIC RESULT INTERPRETATION AMPICILLIN/SULBACTAM <=4/2 S AMIKACIN <=16 S CEFTRIAXONE 2 S CEFTAZIDIME 16 I CEFOTAXIME 16 I CIPROFLOXACIN <=0.25 S CEFEPIME 4 S GENTAMICIN <=2 S LEVOFLOXACIN <=0.5 S RUN DATE: 03/19/21 [facility] *LIVE* PAGE 2 RUN TIME: 1120 Specimen Inquiry SPEC: [id number] PATIENT: ARIADNA BANKS [id number] (Continued) Procedure Result CONTINUED ON NEXT PAGE RUN DATE: 03/19/21 [facility] *LIVE* PAGE 3 RUN TIME: 1120 Specimen Inquiry SPEC: [id number] PATIENT: ARIADNA BANKS [id number] (Continued) --- --------- Procedure Result ANTIMICROBIAL SUSCEPTIBILITY Final (continued) MINOCYCLINE <=4 S MEROPENEM <=1 S TRIMETHOPRIM/SULFAMETHOXAZOLE <=0.5/9.5 S TOBRAMYCIN <=2 S Unless otherwise specified, Testing Performed by: [address] [address] For Inquires, the Physician may contact the Microbiology department at [phone] Culture negative Objective Assessment 1. Febrile illness. Improved 2. COVID-19 infection present on date of admission, 02/06/2021. Status post remdesivir, dexamethasone. 3. Acute hypoxic respiratory failure, status post intubation. S/P Trach on 03/17 Trach cultures positive for [place] albicans and now acinebacter ursungi 4. Diabetes. 5. Diarrhea. 6. Hypertension. 7. Hyperlipidemia. 8. Anemia. 9. BOB on HD 10.UC rock albican, ua neg Plan Plan of Care Cont Meropenem Follow-up lab ,cultures, C. diff PCR negative Kern changed per team Wound care per wound treatment Offload Continue supportive care. Awaiting PEG on Tuesday Prognosis guarded. D/W BLANCA CURIEL MD Mar 29, 2021 08:05
[2021-03-29 08:38] LABS: BASE EXCESS ABG -5 mmol/L (-3-3); HCO3 ABG 19 mmol/L (21-28); PCO2 ABG 30 mmHg (35-46); PO2 ABG 135 mmHg (75-108); SAT O2 ABG 98 % (92-99)
[2021-03-29 08:39] LABS: FIO2 ABG 45
[2021-03-29] MEDS: MULTIVITAMINS,THERAPEUTIC 5 ML ORAL LIQUID. PEG SCH (09:10)
[2021-03-29] MEDS: DOCUSATE 100 MG/10 ML SOLUTION. PO SCH ×2 (09:10→21:13)
[2021-03-29] MEDS: FAMOTIDINE 20 MG/2 ML VIAL IVP SCH (09:11)
[2021-03-29] MEDS: INSULIN GLARGINE SYRINGE. SQ SCH ×2 (09:12→21:14)
[2021-03-29] MEDS: NYSTATIN TOPICAL POWDER 15GM BOTTLE. TP SCH ×2 (09:13→21:00)
[2021-03-29] MEDS: hydrALAZINE 20 MG/ML VIAL. IVP PRN (13:52)
--- NOTE | 2021-03-29 14:01 | NUR ---
Sedation vacation started on patient, decreased propofol to 10 mcg/kg. Patient woke up, blood pressure increased to 213/98, heart rate increased to 114, SPO2 decreased to 85%, and respiratory rate increased to 38 without changing patient to pressure support for a breathing trial. Patient still able to nod head yes/no appropriately to questions, nodded head yes when asked if she was having trouble breathing. Propofol increased back up to 30 mcg/kg.
[2021-03-29] MEDS ORDERED: FUROSEMIDE 40 MG/4 ML VIAL. IVP ONE (15:00)
--- NOTE | 2021-03-29 15:00 | PDOC ---
DATE OF SERVICE DATE: 03/29/21 TIME: 14:54 SUBJECTIVE ROS On vent ,follows some commands has tracheostomy s/p lap G-tube OBJECTIVE Vital Signs Vital Signs Date Time Temp Pulse Resp B/P (MAP) Pulse Ox O2 Delivery O2 Flow Rate FiO2 03/29/21 14:00 114 38 213/98 (136) 85 Ventilator 03/29/21 12:00 97.7 97.7 03/28/21 13:25 90.5 I & 0 Intake and Output 03/29/21 07:00 Intake Total 998.7 ml Output Total 355 ml Balance 643.7 ml IV Total 642.7 ml Tube Feeding 356 ml Output Urine Total 355 ml PHYSICAL EXAM Physical Exam GENERAL: On vent, awake HEENT: Anicteric. . Neck Trach+ LUNGS: decreased at bases HEART: S1, S2. No murmurs. ABDOMEN: Obese, soft. Bowel sounds present. GENITOURINARY: [place] and rectal tube in place. EXTREMITIES: Edema present no cyanosis. CENTRAL NERVOUS SYSTEM: awake, on vent PSYCHIATRIC: Unable to assess. DERM has pressure wounds DIAGNOSIS/ASSESSMENT Assessment & Plan BOB-ATN- [place] anuric , Some improvement in UOp noted today , will give Lasix x 1 , requiring dialysis., currently on MWF schedule, No indication today . Supportive care, I/O avoid nephrotoxins, Monitor for recovery .Access- temp HDC HypoNatremia - mild HypoKalemia - Normal K DM 2 - Glucosuria + POA COVID 19 Pneumonia - Unvaccinated Acute Resp Failure- Intubated , CxR 03/20- Continued presence of diffuse pulmonary opacities bilaterally without interval improvement. HTN antihypertensives Anemia -avoid DOYLE 2/2 to Thrombogenic state Family History of ESRD - Per at bedside- Pt's Mom was on dialysis and sister is on Dialysis COMMENT/RELEVANT DATA Meds Current Medications Medications (Trade) Dose Ordered Sig/Pepe Start Time Stop Time Status Last Admin Dose Admin Acetaminophen (Tylenol Supp) 650 mg PRN Q6HRS PRN 02/08/21 01:45 02/17/21 10:45 DC Acetaminophen (Tylenol) 500 mg 1X PRN PRN 03/17/21 13:30 03/18/21 13:29 DC Albumin Human 200 ml @ 200 mls/hr 1X PRN PRN 03/25/21 12:30 03/25/21 18:29 DC Albuterol Sulfate (Ventolin Hfa) 60 puff STK-MED ONCE 03/17/21 11:29 03/17/21 11:29 DC Alteplase, Recombinant (Cathflo For Central Catheter Clearance) 1 mg 1X ONCE 02/27/21 14:30 02/27/21 14:36 DC 02/27/21 15:19 1 MG Alteplase, Recombinant (Cathflo) 2 mg 1X ONCE 02/27/21 11:00 02/27/21 11:01 DC 02/27/21 11:20 2 MG Amlodipine Besylate (Norvasc) 5 mg DAILY 02/24/21 09:00 03/09/21 10:43 DC 02/27/21 09:10 5 MG Atorvastatin Calcium (Lipitor) 40 mg HS 02/08/21 21:00 03/28/21 21:11 40 MG Atropine Sulfate (ATROPINE 0.5mg SYRINGE) 0.5 mg PRN Q5MIN PRN 02/16/21 12:00 Azithromycin 250 mg/Sodium Chloride 250 ml @ 250 mls/hr Q24H 02/14/21 13:30 02/18/21 14:29 DC 02/18/21 11:51 250 MLS/HR Benzonatate (Tessalon Perle) 100 mg [id number] 02/10/21 23:30 02/17/21 10:45 DC 02/16/21 22:07 100 MG Bupivacaine HCl/ Epinephrine Bitart (Sensorcain-Epi 0.5% Kit) 30 ml STK-MED ONCE 03/27/21 10:05 03/27/21 10:05 DC 03/27/21 13:12 16 ML Bupivacaine HCl/ Epinephrine Bitart (Sensorcain-Epi 0.5%-1:236407 Mpf) 30 ml STK-MED ONCE 03/17/21 10:47 03/17/21 10:47 DC Carvedilol (Coreg) 6.25 mg BIDWMEALS 02/08/21 20:30 02/23/21 15:50 DC 02/23/21 08:06 6.25 MG Cefazolin Sodium/ Dextrose (Ancef 2gm Premix) 2 gm STK-MED ONCE 03/23/21 13:00 03/24/21 11:58 DC Ceftriaxone Sodium (Rocephin) 1 gm Q24H 02/14/21 13:00 02/23/21 07:34 DC 02/22/21 12:42 1 GM Cellulose (Surgicel Fibrillar 1x2) 1 each STK-MED ONCE 03/17/21 10:47 03/17/21 10:47 DC 03/17/21 11:56 1 EACH Daptomycin 480 mg/ Sodium Chloride 50 ml @ 100 mls/hr QMWF 03/23/21 16:00 03/26/21 10:29 DC 03/25/21 19:52 100 MLS/HR Dexamethasone Sodium Phosphate (Decadron) 2 mg 1X ONCE 02/27/21 09:00 02/26/21 07:15 DC Dexmedetomidine HCl 400 mcg/ Sodium Chloride 100 ml @ 0 mls/hr CONT PRN 02/27/21 09:45 03/29/21 12:09 23.2 MLS/HR Dextrose (Dextrose 50%-Water Syringe) 12.5 gm PRN Q15MIN PRN 03/01/21 13:00 03/01/21 12:55 12.5 GM Diphenhydramine HCl (Benadryl) 25 mg 1X PRN PRN 03/17/21 13:30 03/18/21 13:29 DC Docusate Sodium (Colace Solution) 100 mg BID 02/23/21 12:00 03/29/21 09:10 100 MG Docusate Sodium (Colace) 100 mg PRN DAILY PRN 02/07/21 08:45 02/23/21 10:47 DC Enalaprilat (Vasotec Inj) 0.625 mg Q6HRS 02/08/21 16:15 02/09/21 16:01 DC 02/09/21 13:42 0.625 MG Enoxaparin Sodium (Lovenox 30mg Syringe) 30 mg Q24H 03/08/21 09:00 03/12/21 15:38 DC 03/12/21 09:04 30 MG Enoxaparin Sodium (Lovenox 40mg Syringe) 40 mg BID 02/09/21 09:00 03/08/21 13:56 DC 03/08/21 08:26 40 MG Enoxaparin Sodium (Lovenox Per Pharmacy Prophylaxis Dosing) 1 each PRN DAILY PRN 02/09/21 06:45 03/12/21 15:38 DC Ephedrine Sulfate (ePHEDrine PF IN SALINE SYRINGE) 50 mg STK-MED ONCE 03/17/21 10:56 03/17/21 10:56 DC Famotidine (Pepcid Vial) 20 mg DAILY 03/10/21 09:00 03/29/21 09:11 20 MG Fentanyl Citrate (Fentanyl 2ml Vial) 100 mcg STK-MED ONCE 03/27/21 13:18 03/27/21 13:18 DC Fluconazole/ Sodium Chloride 100 ml @ 100 mls/hr Q24H 03/07/21 09:00 03/17/21 08:03 DC 03/16/21 08:29 100 MLS/HR Furosemide (Lasix) 40 mg 1X ONCE 03/26/21 10:00 03/26/21 10:01 DC 03/26/21 09:54 40 MG Glycerin/ Hypromellose/ Polyethylene (Artificial Tears) 1 drop PRN Q1HR PRN 02/17/21 10:00 Glycopyrrolate (Robinul) 1 mg STK-MED ONCE 03/27/21 14:07 03/27/21 14:07 DC Guaifenesin (Robitussin Dm) 10 ml PRN Q6HRS PRN 02/10/21 23:30 02/16/21 09:06 10 ML Haloperidol Lactate (Haldol Inj) 2.5 mg 1X ONCE 02/07/21 02:30 02/07/21 03:56 DC Heparin Sodium (Porcine) (Heparin Sodium) 5,000 unit Q8HRS 03/13/21 06:00 03/29/21 13:34 5,000 UNIT Hydralazine HCl (Apresoline Inj) 10 mg PRN Q4HRS PRN 02/11/21 12:15 03/29/21 13:52 10 MG Hydromorphone HCl (Dilaudid) 0.5 mg PRN Q10MIN PRN 03/27/21 06:00 03/28/21 05:59 DC Info (PHARMACY MONITORING -- do not chart) 1 each PRN DAILY PRN 03/27/21 09:45 UNV Insulin Glargine (Lantus Syringe) 5 unit BID 03/06/21 09:00 03/29/21 09:12 5 UNIT Insulin Human Lispro (HumaLOG) 12 units Q6HRS 02/20/21 12:00 02/28/21 15:38 DC 02/27/21 05:41 12 UNITS Insulin Human Regular 100 ml @ 10 mls/hr 1X ONCE 02/07/21 06:30 02/07/21 16:54 DC 02/07/21 09:31 6.5 MLS/HR Insulin Human Regular 100 unit/ Sodium Chloride 101 ml @ 0 mls/hr CONT PRN PRN 02/07/21 06:00 02/07/21 16:54 DC Labetalol HCl (Normodyne Iv Push) 10 mg PRN Q2HR PRN 02/08/21 00:45 03/26/21 21:14 10 MG Lactobacillus Rhamnosus (Culturelle) 1 cap BID 02/16/21 21:00 02/17/21 10:45 DC 02/16/21 22:02 1 CAP Lidocaine HCl (Buffered Lidocaine 1%) 3 ml STK-MED ONCE 03/07/21 13:25 03/07/21 13:25 DC Linezolid (Zyvox) 600 mg BID 03/05/21 09:00 03/12/21 07:00 DC 03/11/21 20:33 600 MG Linezolid/Dextrose 300 ml @ 300 mls/hr Q12HR 03/16/21 10:00 03/18/21 07:37 DC 03/17/21 21:44 300 MLS/HR Lisinopril (Prinivil) 20 mg DAILY 02/17/21 09:00 03/09/21 10:43 DC 02/27/21 09:10 20 MG Lorazepam (Ativan Inj) 0.5 mg PRN Q6HRS PRN 02/08/21 10:00 02/16/21 22:07 0.5 MG Meropenem 1 gm/ Sodium Chloride 100 ml @ 200 mls/hr Q24H 03/18/21 17:00 03/28/21 17:23 200 MLS/HR Methylprednisolone Sodium Succinate (SOLU-Medrol 125MG VIAL) 80 mg Q8HRS 02/25/21 09:00 02/26/21 07:09 DC 02/26/21 05:52 80 MG Metoclopramide HCl (Reglan Vial) 10 mg PRN Q6HRS PRN 02/08/21 00:45 02/12/21 15:51 10 MG Micafungin Sodium 100 mg/Dextrose 100 ml @ 100 mls/hr Q24H 03/21/21 18:00 03/25/21 10:27 DC 03/24/21 16:36 100 MLS/HR Midazolam HCl 100 ml @ 0 mls/hr CONT PRN 02/17/21 10:00 03/20/21 17:18 5 MLS/HR Morphine Sulfate (Morphine Sulfate) 1 mg PRN Q10MIN PRN 03/27/21 06:00 03/28/21 05:59 DC Multi-Ingred Cream/Lotion/Oil/ Oint (Artificial Tears Eye Ointment) 1 reji PRN Q1HR PRN 03/17/21 17:30 03/20/21 15:55 1 REJI Multivitamins/ Minerals Therapeutic (Centrum Multivit-Mineral Liq) 5 ml DAILY 03/14/21 09:00 03/29/21 09:10 5 ML Naloxone HCl (Narcan) 0.4 mg PRN Q2MIN PRN 03/27/21 14:30 Neostigmine [place] (Neostigmine Methylsulfate) 5 mg STK-MED ONCE 03/27/21 14:06 03/27/21 14:07 DC Norepinephrine Bitartrate 8 mg/ Dextrose 258 ml @ 21.711 mls/ hr CONT PRN 03/06/21 13:45 03/19/21 18:45 23.3 MLS/HR Nystatin (Nystop) 1 reji BID 03/02/21 21:00 03/29/21 09:13 1 REJI Ondansetron HCl (Zofran Odt) 4 mg 1X ONCE 02/06/21 23:30 02/06/21 23:31 DC 02/06/21 23:57 4 MG Ondansetron HCl (Zofran) 4 mg 1X ONCE 02/07/21 20:00 02/07/21 20:07 DC 02/07/21 20:06 4 MG Phenylephrine HCl (PHENYLEPHRINE in 0.9% NACL PF) 1 mg STK-MED ONCE 03/27/21 13:46 03/27/21 13:46 DC Piperacillin Sod/ Tazobactam Sod (Zosyn Per Pharmacy) 1 each PRN DAILY PRN 02/23/21 07:45 03/17/21 10:04 DC Piperacillin Sod/ Tazobactam Sod 2.25 gm/Sodium Chloride 50 ml @ 100 mls/hr Q8HRS 03/07/21 14:00 03/17/21 08:03 DC 03/17/21 05:58 100 MLS/HR Piperacillin Sod/ Tazobactam Sod 3.375 gm/Sodium Chloride 50 ml @ 100 mls/hr Q6HRS 03/14/21 18:00 Cancel Piperacillin Sod/ Tazobactam Sod 4.5 gm/Sodium Chloride 100 ml @ 200 mls/hr Q6HRS 02/23/21 08:00 03/07/21 08:18 DC 03/07/21 06:12 200 MLS/HR Potassium Chloride/Water 100 ml @ 100 mls/hr PRN Q1HR PRN 02/07/21 06:00 02/07/21 16:54 DC Potassium Chloride (Klor-Con) 40 meq 1X ONCE 02/13/21 12:00 02/13/21 12:01 DC 02/13/21 13:21 40 MEQ Prochlorperazine Edisylate (Compazine) 5 mg PACU PRN PRN 03/27/21 06:00 03/28/21 05:59 DC Propofol (Diprivan) 200 mg STK-MED ONCE 03/27/21 12:02 03/27/21 12:03 DC Remdesivir 100 mg/ Sodium Chloride 230 ml @ 460 mls/hr Q24H 02/15/21 12:00 02/18/21 12:29 DC 02/18/21 11:52 460 MLS/HR Remdesivir 200 mg/ Sodium Chloride 210 ml @ 210 mls/hr 1X ONCE 02/11/21 13:00 02/12/21 11:55 DC 02/11/21 14:33 210 MLS/HR Ringer's Solution 1,000 ml @ 30 mls/hr Q24H 03/27/21 06:00 03/27/21 17:59 DC Rocuronium [place] (Zemuron) 50 mg STK-MED ONCE 03/27/21 13:16 03/27/21 13:17 DC Sennosides (Senna) 17.2 mg PRN BID PRN 02/07/21 08:45 02/22/21 08:29 17.2 MG Sevoflurane (Ultane) 60 ml STK-MED ONCE 03/27/21 14:19 03/27/21 14:20 DC Sodium Chloride 1,000 ml @ 25 mls/hr Q24H 03/27/21 14:30 03/29/21 14:07 DC 03/28/21 14:30 25 MLS/HR Sodium Chloride (Normal Saline Flush) 3 ml QSHIFT PRN 03/27/21 14:30 Succinylcholine Chloride (Anectine) 200 mg STK-MED ONCE 02/17/21 10:00 02/25/21 08:40 DC Vancomycin HCl (Vanco Per Pharmacy) 1 each PRN DAILY PRN 03/04/21 18:30 03/05/21 08:59 DC 03/04/21 19:47 1 EACH Vancomycin HCl (Vancomycin Trough Level) 1 each 1X ONCE 03/06/21 07:00 03/06/21 07:01 Cancel Vancomycin HCl 1.5 gm/Sodium Chloride 500 ml @ 250 mls/hr Q12H 03/05/21 07:30 03/05/21 08:58 DC Vancomycin HCl 1 gm/Sodium Chloride 250 ml @ 250 mls/hr Q12H 03/04/21 20:00 UNV Vancomycin HCl 2 gm/Sodium Chloride 500 ml @ 250 mls/hr 1X ONCE 03/04/21 19:00 03/04/21 20:59 DC 03/04/21 19:26 250 MLS/HR Vecuronium [place] (Norcuron Bolus) 6 mg PRN Q2HRS PRN 03/06/21 14:30 03/16/21 10:16 5 MG Vitamin A/Vitamin D (Vitamin A & D Ointment) 1 reji PRN Q1HR PRN 03/10/21 01:45 03/20/21 09:34 1 REJI Lab Laboratory Tests Test 03/28/21 19:50 03/29/21 00:14 03/29/21 05:30 03/29/21 08:31 Glucose (Fingerstick) 111 mg/dL (70-99) 160 mg/dL (70-99) White Blood Count 7.7 x10^3/uL (4.0-11.0) Red Blood Count 3.24 x10^6/uL (3.50-5.40) Hemoglobin 9.5 g/dL (12.0-15.5) Hematocrit 29.0 % (36.0-47.0) Mean Corpuscular Volume 90 fL (79-100) Mean Corpuscular Hemoglobin 30 pg (25-35) Mean Corpuscular Hemoglobin Concent 33 g/dL (31-37) Red Cell Distribution Width 14.8 % (11.5-14.5) Platelet Count 282 x10^3/uL (140-400) Neutrophils (%) (Auto) 38 % (31-73) Lymphocytes (%) (Auto) 14 % (24-48) Monocytes (%) (Auto) 8 % (0-9) Eosinophils (%) (Auto) 35 % (0-3) Basophils (%) (Auto) 4 % (0-3) Neutrophils # (Auto) 3.0 x10^3/uL (1.8-7.7) Lymphocytes # (Auto) 1.1 x10^3/uL (1.0-4.8) Monocytes # (Auto) 0.6 x10^3/uL (0.0-1.1) Eosinophils # (Auto) 2.7 x10^3/uL (0.0-0.7) Basophils # (Auto) 0.3 x10^3/uL (0.0-0.2) Sodium Level 133 mmol/L (136-145) Potassium Level 3.8 mmol/L (3.5-5.1) Chloride Level 98 mmol/L (98-107) Carbon Dioxide Level 26 mmol/L (21-32) Anion Gap 9 (6-14) Blood Urea Nitrogen 30 mg/dL (7-20) Creatinine 4.4 mg/dL (0.6-1.0) Estimated GFR (Cockcroft-Gault) 10.8 Glucose Level 186 mg/dL (70-99) Calcium Level 8.2 mg/dL (8.5-10.1) O2 Saturation 98 % (92-99) Arterial Blood pH 7.41 (7.35-7.45) Arterial Blood pCO2 at Patient Temp 30 mmHg (35-46) Arterial Blood pO2 at Patient Temp 135 mmHg (75-108) Arterial Blood HCO3 19 mmol/L (21-28) Arterial Blood Base Excess -5 mmol/L (-3-3) FiO2 45 Test 9// 12:14 Glucose (Fingerstick) 137 mg/dL (70-99) Results All relevant outside records, renal labs, imaging studies, telemetry/EKG's were reviewed. Justicifation of Admission Dx: Justifications for Admission: Justification of Admission Dx: N/A GIGI CARMEN MD Mar 29, 2021 15:00
[2021-03-29] MEDS: MEROPENEM 1 GM in IV NORMAL SALINE 100ML 100 ML IV SCH (17:14)
[2021-03-29] MEDS: fentaNYL HIGH DOSE PCA 55 ML IV PRN (20:01)
[2021-03-29] MEDS: ATORVASTATIN CALCIUM 40 MG TABLET. PO SCH (21:13)
[2021-03-30] VITALS (24 sets, daily range): BP systolic 98–198; BP diastolic 54–96
[2021-03-30] MEDS: DEXMEDETOMIDINE 400 MCG in IV NORMAL SALINE 100ML 96 ML IV PRN ×8 (02:16→23:33)
[2021-03-30] MEDS: PROPOFOL 100 ML IV PRN ×5 (02:19→20:44)
[2021-03-30] MEDS: HEPARIN for SUB-Q USE 5,000 UNIT/ML VIAL. SQ SCH ×3 (06:38→20:43)
[2021-03-30 06:40] LABS: BASO # 0.1 x10^3/uL (0.0-0.2); BASO % 1 % (0-3); EOS # 2.8 x10^3/uL (0.0-0.7); EOS % 31 % (0-3); HEMATOCRIT 27.4 % (36.0-47.0); HEMOGLOBIN 9.1 g/dL (12.0-15.5); LYMPH # 1.2 x10^3/uL (1.0-4.8); LYMPH % 14 % (24-48); MEAN CORPUSCULAR HEMOGLOBIN 29 pg (25-35); MEAN CORPUSCULAR HGB CONC 33 g/dL (31-37); MEAN CORPUSCULAR VOLUME 89 fL (79-100); MONO # 0.9 x10^3/uL (0.0-1.1); MONO % 10 % (0-9); NEUT # 3.9 x10^3/uL (1.8-7.7); NEUT % 44 % (31-73); PLATELET COUNT 279 x10^3/uL (140-400); RED BLOOD COUNT 3.09 x10^6/uL (3.50-5.40); RED CELL DISTRIBUTION WIDTH 15.2 % (11.5-14.5)
[2021-03-30] MEDS: INSULIN LISPRO 300 UNITS/3 ML VIAL. SQ SCH ×4 (06:40→17:52)
[2021-03-30 06:58] LABS: CALCIUM 8.4 mg/dL (8.5-10.1); GFR 9.4; POTASSIUM 3.9 mmol/L (3.5-5.1)
--- NOTE | 2021-03-30 07:15 | PDOC ---
PULMONARY PROGRESS NOTES DATE: 03/30/21 TIME: 07:15 Subjective Patient sedated, currently 40% FiO2 5 of PEEP s/p lap G-tube 03/27 Vitals Vital Signs Date Time Temp Pulse Resp B/P (MAP) Pulse Ox O2 Delivery O2 Flow Rate FiO2 03/30/21 06:00 60 18 154/75 (101) 99 Ventilator 03/30/21 04:00 97.8 97.8 03/29/21 20:31 90.5 Comments on vent sedated trach Lungs: Clear Cardiovascular: S1 Abdomen: Soft, Non-tender Skin: Warm Labs Laboratory Tests Test 03/28/21 07:22 03/28/21 11:53 03/28/21 19:50 03/29/21 00:14 O2 Saturation 99 % (92-99) Arterial Blood pH 7.54 (7.35-7.45) Arterial Blood pCO2 at Patient Temp 28 mmHg (35-46) Arterial Blood pO2 at Patient Temp 142 mmHg (75-108) Arterial Blood HCO3 23 mmol/L (21-28) Arterial Blood Base Excess 1 mmol/L (-3-3) FiO2 45% vent Glucose (Fingerstick) 93 mg/dL (70-99) 111 mg/dL (70-99) 160 mg/dL (70-99) Test 03/29/21 05:30 03/29/21 08:31 03/29/21 12:14 03/29/21 18:24 White Blood Count 7.7 x10^3/uL (4.0-11.0) Red Blood Count 3.24 x10^6/uL (3.50-5.40) Hemoglobin 9.5 g/dL (12.0-15.5) Hematocrit 29.0 % (36.0-47.0) Mean Corpuscular Volume 90 fL (79-100) Mean Corpuscular Hemoglobin 30 pg (25-35) Mean Corpuscular Hemoglobin Concent 33 g/dL (31-37) Red Cell Distribution Width 14.8 % (11.5-14.5) Platelet Count 282 x10^3/uL (140-400) Neutrophils (%) (Auto) 38 % (31-73) Lymphocytes (%) (Auto) 14 % (24-48) Monocytes (%) (Auto) 8 % (0-9) Eosinophils (%) (Auto) 35 % (0-3) Basophils (%) (Auto) 4 % (0-3) Neutrophils # (Auto) 3.0 x10^3/uL (1.8-7.7) Lymphocytes # (Auto) 1.1 x10^3/uL (1.0-4.8) Monocytes # (Auto) 0.6 x10^3/uL (0.0-1.1) Eosinophils # (Auto) 2.7 x10^3/uL (0.0-0.7) Basophils # (Auto) 0.3 x10^3/uL (0.0-0.2) Sodium Level 133 mmol/L (136-145) Potassium Level 3.8 mmol/L (3.5-5.1) Chloride Level 98 mmol/L (98-107) Carbon Dioxide Level 26 mmol/L (21-32) Anion Gap 9 (6-14) Blood Urea Nitrogen 30 mg/dL (7-20) Creatinine 4.4 mg/dL (0.6-1.0) Estimated GFR (Cockcroft-Gault) 10.8 Glucose Level 186 mg/dL (70-99) Calcium Level 8.2 mg/dL (8.5-10.1) O2 Saturation 98 % (92-99) Arterial Blood pH 7.41 (7.35-7.45) Arterial Blood pCO2 at Patient Temp 30 mmHg (35-46) Arterial Blood pO2 at Patient Temp 135 mmHg (75-108) Arterial Blood HCO3 19 mmol/L (21-28) Arterial Blood Base Excess -5 mmol/L (-3-3) FiO2 45 Glucose (Fingerstick) 137 mg/dL (70-99) 117 mg/dL (70-99) Test 03/29/21 23:28 03/30/21 06:15 03/30/21 06:18 Glucose (Fingerstick) 111 mg/dL (70-99) 160 mg/dL (70-99) White Blood Count 9.0 x10^3/uL (4.0-11.0) Red Blood Count 3.09 x10^6/uL (3.50-5.40) Hemoglobin 9.1 g/dL (12.0-15.5) Hematocrit 27.4 % (36.0-47.0) Mean Corpuscular Volume 89 fL (79-100) Mean Corpuscular Hemoglobin 29 pg (25-35) Mean Corpuscular Hemoglobin Concent 33 g/dL (31-37) Red Cell Distribution Width 15.2 % (11.5-14.5) Platelet Count 279 x10^3/uL (140-400) Neutrophils (%) (Auto) 44 % (31-73) Lymphocytes (%) (Auto) 14 % (24-48) Monocytes (%) (Auto) 10 % (0-9) Eosinophils (%) (Auto) 31 % (0-3) Basophils (%) (Auto) 1 % (0-3) Neutrophils # (Auto) 3.9 x10^3/uL (1.8-7.7) Lymphocytes # (Auto) 1.2 x10^3/uL (1.0-4.8) Monocytes # (Auto) 0.9 x10^3/uL (0.0-1.1) Eosinophils # (Auto) 2.8 x10^3/uL (0.0-0.7) Basophils # (Auto) 0.1 x10^3/uL (0.0-0.2) Sodium Level 134 mmol/L (136-145) Potassium Level 3.9 mmol/L (3.5-5.1) Chloride Level 98 mmol/L (98-107) Carbon Dioxide Level 26 mmol/L (21-32) Anion Gap 10 (6-14) Blood Urea Nitrogen 34 mg/dL (7-20) Creatinine 5.0 mg/dL (0.6-1.0) Estimated GFR (Cockcroft-Gault) 9.4 Glucose Level 158 mg/dL (70-99) Calcium Level 8.4 mg/dL (8.5-10.1) Laboratory Tests Test 03/29/21 08:31 03/29/21 12:14 03/29/21 18:24 03/29/21 23:28 O2 Saturation 98 % (92-99) Arterial Blood pH 7.41 (7.35-7.45) Arterial Blood pCO2 at Patient Temp 30 mmHg (35-46) Arterial Blood pO2 at Patient Temp 135 mmHg (75-108) Arterial Blood HCO3 19 mmol/L (21-28) Arterial Blood Base Excess -5 mmol/L (-3-3) FiO2 45 Glucose (Fingerstick) 137 mg/dL (70-99) 117 mg/dL (70-99) 111 mg/dL (70-99) Test 03/30/21 06:15 03/30/21 06:18 White Blood Count 9.0 x10^3/uL (4.0-11.0) Red Blood Count 3.09 x10^6/uL (3.50-5.40) Hemoglobin 9.1 g/dL (12.0-15.5) Hematocrit 27.4 % (36.0-47.0) Mean Corpuscular Volume 89 fL (79-100) Mean Corpuscular Hemoglobin 29 pg (25-35) Mean Corpuscular Hemoglobin Concent 33 g/dL (31-37) Red Cell Distribution Width 15.2 % (11.5-14.5) Platelet Count 279 x10^3/uL (140-400) Neutrophils (%) (Auto) 44 % (31-73) Lymphocytes (%) (Auto) 14 % (24-48) Monocytes (%) (Auto) 10 % (0-9) Eosinophils (%) (Auto) 31 % (0-3) Basophils (%) (Auto) 1 % (0-3) Neutrophils # (Auto) 3.9 x10^3/uL (1.8-7.7) Lymphocytes # (Auto) 1.2 x10^3/uL (1.0-4.8) Monocytes # (Auto) 0.9 x10^3/uL (0.0-1.1) Eosinophils # (Auto) 2.8 x10^3/uL (0.0-0.7) Basophils # (Auto) 0.1 x10^3/uL (0.0-0.2) Sodium Level 134 mmol/L (136-145) Potassium Level 3.9 mmol/L (3.5-5.1) Chloride Level 98 mmol/L (98-107) Carbon Dioxide Level 26 mmol/L (21-32) Anion Gap 10 (6-14) Blood Urea Nitrogen 34 mg/dL (7-20) Creatinine 5.0 mg/dL (0.6-1.0) Estimated GFR (Cockcroft-Gault) 9.4 Glucose Level 158 mg/dL (70-99) Calcium Level 8.4 mg/dL (8.5-10.1) Glucose (Fingerstick) 160 mg/dL (70-99) Medications Active Scripts Medications Dose Route/Sig Max Daily Dose Days Date Category Novolog Flexpen (Insulin Aspart) 100 Unit/1 Ml Insuln.pen 3-7 SQ TIDACHC 02/07/21 Reported Lisinopril 5 Mg Tablet 1 Tab PO DAILY 02/07/21 Reported Lantus Solostar (Insulin Glargine,Hum.rec.anlog) 100 Unit/1 Ml Insuln.pen 5 Unit SQ QHS 04/09/15 Reported Atorvastatin Calcium 40 Mg Tablet 40 Mg PO HS 04/09/15 Reported Comments Chest x-ray reviewed 03/26/2021. Unchanged bilateral diffuse interstitial infiltrates 03/20/21 CXR IMPRESSION: Continued presence of diffuse pulmonary opacities bilaterally without interval improvement. Impression . IMPRESSION: 1. Acute hypoxic respiratory failure secondary to COVID-19 viral pneumonia/acute lung injury and early acute respiratory distress syndrome. S/P intubation 02/17/21. Status post tracheostomy. 2. Nonsmoker. 3. Abnormal chest x-ray consistent with COVID-19 viral pneumonia. 4. Diabetic ketoacidosis--resolved 5. Underlying obesity contributing to hypoxia as well. 6. BOB . hemodialysis started 03/07 7. Fever, 8. Abnormal chest x-ray with diffuse interstitial infiltrates compatible with viral pneumonia 9. [place] in the sputum is a contamination 10. Septic shoc 11. s/p lap G-tube 03/27 Plan . Updated 03/30 Patient had temperature elevation yesterday defer to ID Oxygenation has improved Patient due to moved to LTAC Hemodialysis. Nephrology Nutritional support DVT prophylaxis Discussed with RN and RT updated 03/29/21 has episode of agitation and cough cont vent support setting reviewed decrease sedation start weaning as tolerated s/p lap G-tube 03/27 As needed Lasix Follow CXR/ABG Follow nephrology recs Monitor HBG , follow GI recs Follow ID recs for ABX Hemodialysis per renal DVT/GI PPX D/W RN and RT Updated 03/28/21 cont vent support setting reviewed decrease sedation start weaning as tolerated s/p lap G-tube 03/27 As needed Lasix Follow CXR/ABG Follow nephrology recs Monitor HBG , follow GI recs Follow ID recs for ABX Hemodialysis per renal DVT/GI PPX D/W RN and RT MONTEZ OROPEZA MD Mar 30, 2021 07:15
[2021-03-30] MEDS: INSULIN GLARGINE SYRINGE. SQ SCH ×2 (07:41→20:42)
[2021-03-30] MEDS: DOCUSATE 100 MG/10 ML SOLUTION. PO SCH ×3 (07:41→20:52)
[2021-03-30] MEDS: MULTIVITAMINS,THERAPEUTIC 5 ML ORAL LIQUID. PEG SCH (07:41)
[2021-03-30] MEDS: FAMOTIDINE 20 MG/2 ML VIAL IVP SCH (07:41)
[2021-03-30] MEDS: NYSTATIN TOPICAL POWDER 15GM BOTTLE. TP SCH ×2 (07:42→20:43)
[2021-03-30 07:58] LABS: % ATYL 1 % (0-0); % BANDS 2 % (0-9); % EOS 29 % (0-5); % LYMPHS 15 % (24-48); % MONOS 7 % (0-10); % SEGS 46 % (35-66); PLT ESTIMATE ADEQUATE (ADEQUATE)
--- NOTE | 2021-03-30 08:01 | PDOC ---
Infectious Disease Note Subjective: Subjective Pt intubated/sedated Vital Signs: Vital Signs Vital Signs Date Time Temp Pulse Resp B/P (MAP) Pulse Ox O2 Delivery O2 Flow Rate FiO2 03/30/21 07:00 60 18 167/76 (106) 99 Ventilator 03/30/21 04:00 97.8 97.8 03/29/21 20:31 90.5 Physical Exam: PHYSICAL EXAM GENERAL: Intubated HEENT: Normocephalic, atraumatic. Anicteric. Slight bilateral periorbital edema. Neck right IJ HDC clean Trach + LUNGS: Rhonchi. HEART: S1, S2. No murmurs. ABDOMEN: Obese, soft. Bowel sounds present. Nontender, nondistended. Abdominal and pubis mons edema noted. PEG tube in place GENITOURINARY: Kern and fecal tube in place. EXTREMITIES: Edema present no cyanosis. CENTRAL NERVOUS SYSTEM: Intubated. PSYCHIATRIC: Unable to assess. Derm has pressure wounds wound pictures noted in chart. Generalized rash, PICC line , right IJ HDC clean Medications: Inpatient Meds: Medications reviewed. Labs: Lab Laboratory Tests Test 03/29/21 08:31 03/29/21 12:14 03/29/21 18:24 03/29/21 23:28 O2 Saturation 98 % (92-99) Arterial Blood pH 7.41 (7.35-7.45) Arterial Blood pCO2 at Patient Temp 30 mmHg (35-46) Arterial Blood pO2 at Patient Temp 135 mmHg (75-108) Arterial Blood HCO3 19 mmol/L (21-28) Arterial Blood Base Excess -5 mmol/L (-3-3) FiO2 45 Glucose (Fingerstick) 137 mg/dL (70-99) 117 mg/dL (70-99) 111 mg/dL (70-99) Test 03/30/21 06:15 03/30/21 06:18 White Blood Count 9.0 x10^3/uL (4.0-11.0) Red Blood Count 3.09 x10^6/uL (3.50-5.40) Hemoglobin 9.1 g/dL (12.0-15.5) Hematocrit 27.4 % (36.0-47.0) Mean Corpuscular Volume 89 fL (79-100) Mean Corpuscular Hemoglobin 29 pg (25-35) Mean Corpuscular Hemoglobin Concent 33 g/dL (31-37) Red Cell Distribution Width 15.2 % (11.5-14.5) Platelet Count 279 x10^3/uL (140-400) Neutrophils (%) (Auto) 44 % (31-73) Lymphocytes (%) (Auto) 14 % (24-48) Monocytes (%) (Auto) 10 % (0-9) Eosinophils (%) (Auto) 31 % (0-3) Basophils (%) (Auto) 1 % (0-3) Neutrophils # (Auto) 3.9 x10^3/uL (1.8-7.7) Lymphocytes # (Auto) 1.2 x10^3/uL (1.0-4.8) Monocytes # (Auto) 0.9 x10^3/uL (0.0-1.1) Eosinophils # (Auto) 2.8 x10^3/uL (0.0-0.7) Basophils # (Auto) 0.1 x10^3/uL (0.0-0.2) Segmented Neutrophils % 46 % (35-66) Band Neutrophils % 2 % (0-9) Lymphocytes % 15 % (24-48) Atypical Lymphocytes % (Manual) 1 % (0-0) Monocytes % 7 % (0-10) Eosinophils % 29 % (0-5) Platelet Estimate Adequate (ADEQUATE) Sodium Level 134 mmol/L (136-145) Potassium Level 3.9 mmol/L (3.5-5.1) Chloride Level 98 mmol/L (98-107) Carbon Dioxide Level 26 mmol/L (21-32) Anion Gap 10 (6-14) Blood Urea Nitrogen 34 mg/dL (7-20) Creatinine 5.0 mg/dL (0.6-1.0) Estimated GFR (Cockcroft-Gault) 9.4 Glucose Level 158 mg/dL (70-99) Calcium Level 8.4 mg/dL (8.5-10.1) Glucose (Fingerstick) 160 mg/dL (70-99) Micro GRAM STAIN EVALUATION Final Final This specimen is of good quality and is acceptable for routine bacterial culture. Culture results to follow. NO ORGANISMS SEEN. SQUAMOUS EPI CELL:RARE PMN (WBCs):MODERATE Unless otherwise specified, Testing Performed by: [address] [place] [address] For Inquires, the Physician may contact the Microbiology department at [phone] RESPIRATORY CULTURE Final Final MODERATE GRAM NEGATIVE RODS on 03/18/21 at 1120 FINAL ID= [ACINETOBACTER [email or web address].] ACINETOBACTER URSINGII. ANTIMICROBIAL SUSCEPTIBILITY Final Comment NEG SAGE 56 ACINETOBACTER URSINGII. ANTIBIOTIC RESULT INTERPRETATION AMPICILLIN/SULBACTAM <=4/2 S AMIKACIN <=16 S CEFTRIAXONE 2 S CEFTAZIDIME 16 I CEFOTAXIME 16 I CIPROFLOXACIN <=0.25 S CEFEPIME 4 S GENTAMICIN <=2 S LEVOFLOXACIN <=0.5 S RUN DATE: 03/19/21 [facility] LAB *LIVE* PAGE 2 RUN TIME: 1120 Specimen Inquiry --- --------- SPEC: [id number] PATIENT: ARIADNA BANKS [id number] (Continued) Procedure Result CONTINUED ON NEXT PAGE RUN DATE: 03/19/21 [facility] LAB *LIVE* PAGE 3 RUN TIME: 1120 Specimen Inquiry SPEC: [id number] PATIENT: ARIADNA BANKS [id number] (Continued) Procedure Result ANTIMICROBIAL SUSCEPTIBILITY Final (continued) MINOCYCLINE <=4 S MEROPENEM <=1 S TRIMETHOPRIM/SULFAMETHOXAZOLE <=0.5/9.5 S TOBRAMYCIN <=2 S Unless otherwise specified, Testing Performed by: [address] [address] For Inquires, the Physician may contact the Microbiology department at [phone] Culture negative Objective: Assessment: 1. Febrile illness. Improved 2. COVID-19 infection present on date of admission, 02/06/2021. Status post remdesivir, dexamethasone. 3. Acute hypoxic respiratory failure, status post intubation. S/P Trach on 03/17 Trach cultures positive for Rock albicans and now acinebacter ursungi 4. Diabetes. 5. Diarrhea. 6. Hypertension. 7. Hyperlipidemia. 8. Anemia. 9. BOB on HD 10. rock albican, ua neg Plan: Plan of Care Cont Meropenem Follow-up lab ,cultures, C. diff PCR negative Kern changed per team Wound care per wound treatment Offload Continue supportive care. Prognosis poor D/W KAITLYNN CURIEL MD Mar 30, 2021 08:01
[2021-03-30 08:55] LABS: BASE EXCESS ABG -1 mmol/L (-3-3); HCO3 ABG 24 mmol/L (21-28); PCO2 ABG 40 mmHg (35-46); PO2 ABG 102 mmHg (75-108); SAT O2 ABG 97 % (92-99)
[2021-03-30 08:57] LABS: FIO2 ABG 40
--- NOTE | 2021-03-30 09:21 | PDOC ---
DATE OF SERVICE DATE: 03/30/21 TIME: 09:14 SUBJECTIVE ROS On vent ,follows some commands has tracheostomy and G-tube OBJECTIVE Vital Signs Vital Signs Date Time Temp Pulse Resp B/P (MAP) Pulse Ox O2 Delivery O2 Flow Rate FiO2 03/30/21 09:00 58 18 153/73 (99) 99 Ventilator 03/30/21 08:00 98.2 98.2 03/29/21 20:31 90.5 I & 0 l Intake and Output 03/30/21 07:00 Intake Total 1519.8 ml Output Total 1175 ml Balance 344.8 ml IV Total 1006.8 ml Tube Feeding 513 ml Output Urine Total 675 ml Stool Total 500 ml PHYSICAL EXAM Physical Exam GENERAL: On vent, awake HEENT: Anicteric. . Neck Trach+ LUNGS: decreased at bases HEART: S1, S2. No murmurs. ABDOMEN: Obese, soft. Bowel sounds present. GENITOURINARY: Kern and rectal tube in place. EXTREMITIES: Edema present no cyanosis. CENTRAL NERVOUS SYSTEM: awake, on vent PSYCHIATRIC: Unable to assess. DERM has pressure wounds DIAGNOSIS/ASSESSMENT Assessment & Plan BOB-ATN- was anuric , now non Oliguric - Some improvement in UOp , still marginal , No improvement in renal function - requiring dialysis., currently on MWF schedule, Dialysis today, discussed treatment plan with Rene Supportive care, I/O avoid nephrotoxins, Monitor for recovery .Access- temp HDC HypoNatremia - mild , stable HypoKalemia - Normal K DM 2 - Glucosuria + POA COVID 19 Pneumonia - Unvaccinated Acute Resp Failure- Intubated , CxR 03/20- Continued presence of diffuse pulmonary opacities bilaterally without interval improvement. HTN antihypertensives Anemia -avoid DOYLE 2/2 to Thrombogenic state Family History of ESRD - Per at bedside- Pt's Mom was on dialysis and sister is on Dialysis COMMENT/RELEVANT DATA Meds Current Medications Medications (Trade) Dose Ordered Sig/Pepe Start Time Stop Time Status Last Admin Dose Admin Acetaminophen (Tylenol Supp) 650 mg PRN Q6HRS PRN 02/08/21 01:45 02/17/21 10:45 DC Acetaminophen (Tylenol) 500 mg 1X PRN PRN 03/17/21 13:30 03/18/21 13:29 DC Albumin Human 200 ml @ 200 mls/hr 1X PRN PRN 03/25/21 12:30 03/25/21 18:29 DC Albuterol Sulfate (Ventolin Hfa) 60 puff STK-MED ONCE 03/17/21 11:29 03/17/21 11:29 DC Alteplase, Recombinant (Cathflo For Central Catheter Clearance) 1 mg 1X ONCE 02/27/21 14:30 02/27/21 14:36 DC 02/27/21 15:19 1 MG Alteplase, Recombinant (Cathflo) 2 mg 1X ONCE 02/27/21 11:00 02/27/21 11:01 DC 02/27/21 11:20 2 MG Amlodipine Besylate (Norvasc) 5 mg DAILY 02/24/21 09:00 03/09/21 10:43 DC 02/27/21 09:10 5 MG Atorvastatin Calcium (Lipitor) 40 mg HS 02/08/21 21:00 03/29/21 21:13 40 MG Atropine Sulfate (ATROPINE 0.5mg SYRINGE) 0.5 mg PRN Q5MIN PRN 02/16/21 12:00 Azithromycin 250 mg/Sodium Chloride 250 ml @ 250 mls/hr Q24H 02/14/21 13:30 02/18/21 14:29 DC 02/18/21 11:51 250 MLS/HR Benzonatate (Tessalon Perle) 100 mg [id number] 02/10/21 23:30 02/17/21 10:45 DC 02/16/21 22:07 100 MG Bupivacaine HCl/ Epinephrine Bitart (Sensorcain-Epi 0.5% Kit) 30 ml STK-MED ONCE 03/27/21 10:05 03/27/21 10:05 DC 03/27/21 13:12 16 ML Bupivacaine HCl/ Epinephrine Bitart (Sensorcain-Epi 0.5%-1:229310 Mpf) 30 ml STK-MED ONCE 03/17/21 10:47 03/17/21 10:47 DC Carvedilol (Coreg) 6.25 mg BIDWMEALS 02/08/21 20:30 02/23/21 15:50 DC 02/23/21 08:06 6.25 MG Cefazolin Sodium/ Dextrose (Ancef 2gm Premix) 2 gm STK-MED ONCE 03/23/21 13:00 03/24/21 11:58 DC Ceftriaxone Sodium (Rocephin) 1 gm Q24H 02/14/21 13:00 02/23/21 07:34 DC 02/22/21 12:42 1 GM Cellulose (Surgicel Fibrillar 1x2) 1 each STK-MED ONCE 03/17/21 10:47 03/17/21 10:47 DC 03/17/21 11:56 1 EACH Daptomycin 480 mg/ Sodium Chloride 50 ml @ 100 mls/hr QMWF 03/23/21 16:00 03/26/21 10:29 DC 03/25/21 19:52 100 MLS/HR Dexamethasone Sodium Phosphate (Decadron) 2 mg 1X ONCE 02/27/21 09:00 02/26/21 07:15 DC Dexmedetomidine HCl 400 mcg/ Sodium Chloride 100 ml @ 0 mls/hr CONT PRN 02/27/21 09:45 03/30/21 07:49 29 MLS/HR Dextrose (Dextrose 50%-Water Syringe) 12.5 gm PRN Q15MIN PRN 03/01/21 13:00 03/01/21 12:55 12.5 GM Diphenhydramine HCl (Benadryl) 25 mg 1X PRN PRN 03/17/21 13:30 03/18/21 13:29 DC Docusate Sodium (Colace Solution) 100 mg BID 02/23/21 12:00 03/29/21 21:13 100 MG Docusate Sodium (Colace) 100 mg PRN DAILY PRN 02/07/21 08:45 02/23/21 10:47 DC Enalaprilat (Vasotec Inj) 0.625 mg Q6HRS 02/08/21 16:15 02/09/21 16:01 DC 02/09/21 13:42 0.625 MG Enoxaparin Sodium (Lovenox 30mg Syringe) 30 mg Q24H 03/08/21 09:00 03/12/21 15:38 DC 03/12/21 09:04 30 MG Enoxaparin Sodium (Lovenox 40mg Syringe) 40 mg BID 02/09/21 09:00 03/08/21 13:56 DC 03/08/21 08:26 40 MG Enoxaparin Sodium (Lovenox Per Pharmacy Prophylaxis Dosing) 1 each PRN DAILY PRN 02/09/21 06:45 03/12/21 15:38 DC Ephedrine Sulfate (ePHEDrine PF IN SALINE SYRINGE) 50 mg STK-MED ONCE 03/17/21 10:56 03/17/21 10:56 DC Famotidine (Pepcid Vial) 20 mg DAILY 03/10/21 09:00 03/30/21 07:41 20 MG Fentanyl Citrate (Fentanyl 2ml Vial) 100 mcg STK-MED ONCE 03/27/21 13:18 03/27/21 13:18 DC Fluconazole/ Sodium Chloride 100 ml @ 100 mls/hr Q24H 03/07/21 09:00 03/17/21 08:03 DC 03/16/21 08:29 100 MLS/HR Furosemide (Lasix) 40 mg 1X ONCE 03/29/21 15:00 03/29/21 15:02 DC 03/29/21 15:22 40 MG Glycerin/ Hypromellose/ Polyethylene (Artificial Tears) 1 drop PRN Q1HR PRN 02/17/21 10:00 Glycopyrrolate (Robinul) 1 mg STK-MED ONCE 03/27/21 14:07 03/27/21 14:07 DC Guaifenesin (Robitussin Dm) 10 ml PRN Q6HRS PRN 02/10/21 23:30 02/16/21 09:06 10 ML Haloperidol Lactate (Haldol Inj) 2.5 mg 1X ONCE 02/07/21 02:30 02/07/21 03:56 DC Heparin Sodium (Porcine) (Heparin Sodium) 5,000 unit Q8HRS 03/13/21 06:00 03/30/21 06:38 5,000 UNIT Hydralazine HCl (Apresoline Inj) 10 mg PRN Q4HRS PRN 02/11/21 12:15 03/29/21 13:52 10 MG Hydromorphone HCl (Dilaudid) 0.5 mg PRN Q10MIN PRN 03/27/21 06:00 03/28/21 05:59 DC Info (PHARMACY MONITORING -- do not chart) 1 each PRN DAILY PRN 03/27/21 09:45 UNV Insulin Glargine (Lantus Syringe) 5 unit BID 03/06/21 09:00 03/30/21 07:41 5 UNIT Insulin Human Lispro (HumaLOG) 12 units Q6HRS 02/20/21 12:00 02/28/21 15:38 DC 02/27/21 05:41 12 UNITS Insulin Human Regular 100 ml @ 10 mls/hr 1X ONCE 02/07/21 06:30 02/07/21 16:54 DC 02/07/21 09:31 6.5 MLS/HR Insulin Human Regular 100 unit/ Sodium Chloride 101 ml @ 0 mls/hr CONT PRN PRN 02/07/21 06:00 02/07/21 16:54 DC Labetalol HCl (Normodyne Iv Push) 10 mg PRN Q2HR PRN 02/08/21 00:45 03/26/21 21:14 10 MG Lactobacillus Rhamnosus (Culturelle) 1 cap BID 02/16/21 21:00 02/17/21 10:45 DC 02/16/21 22:02 1 CAP Lidocaine HCl (Buffered Lidocaine 1%) 3 ml STK-MED ONCE 03/07/21 13:25 03/07/21 13:25 DC Linezolid (Zyvox) 600 mg BID 03/05/21 09:00 03/12/21 07:00 DC 03/11/21 20:33 600 MG Linezolid/Dextrose 300 ml @ 300 mls/hr Q12HR 03/16/21 10:00 03/18/21 07:37 DC 03/17/21 21:44 300 MLS/HR Lisinopril (Prinivil) 20 mg DAILY 02/17/21 09:00 03/09/21 10:43 DC 02/27/21 09:10 20 MG Lorazepam (Ativan Inj) 0.5 mg PRN Q6HRS PRN 02/08/21 10:00 02/16/21 22:07 0.5 MG Meropenem 1 gm/ Sodium Chloride 100 ml @ 200 mls/hr Q24H 03/18/21 17:00 03/29/21 17:14 200 MLS/HR Methylprednisolone Sodium Succinate (SOLU-Medrol 125MG VIAL) 80 mg Q8HRS 02/25/21 09:00 02/26/21 07:09 DC 02/26/21 05:52 80 MG Metoclopramide HCl (Reglan Vial) 10 mg PRN Q6HRS PRN 02/08/21 00:45 02/12/21 15:51 10 MG Micafungin Sodium 100 mg/Dextrose 100 ml @ 100 mls/hr Q24H 03/21/21 18:00 03/25/21 10:27 DC 03/24/21 16:36 100 MLS/HR Midazolam HCl 100 ml @ 0 mls/hr CONT PRN 02/17/21 10:00 03/20/21 17:18 5 MLS/HR Morphine Sulfate (Morphine Sulfate) 1 mg PRN Q10MIN PRN 03/27/21 06:00 03/28/21 05:59 DC Multi-Ingred Cream/Lotion/Oil/ Oint (Artificial Tears Eye Ointment) 1 reji PRN Q1HR PRN 03/17/21 17:30 03/20/21 15:55 1 REJI Multivitamins/ Minerals Therapeutic (Centrum Multivit-Mineral Liq) 5 ml DAILY 03/14/21 09:00 03/30/21 07:41 5 ML Naloxone HCl (Narcan) 0.4 mg PRN Q2MIN PRN 03/27/21 14:30 Neostigmine [place] (Neostigmine Methylsulfate) 5 mg STK-MED ONCE 03/27/21 14:06 03/27/21 14:07 DC Norepinephrine Bitartrate 8 mg/ Dextrose 258 ml @ 21.711 mls/ hr CONT PRN 03/06/21 13:45 03/19/21 18:45 23.3 MLS/HR Nystatin (Nystop) 1 reji BID 03/02/21 21:00 03/30/21 07:42 1 REJI Ondansetron HCl (Zofran Odt) 4 mg 1X ONCE 02/06/21 23:30 02/06/21 23:31 DC 02/06/21 23:57 4 MG Ondansetron HCl (Zofran) 4 mg 1X ONCE 02/07/21 20:00 02/07/21 20:07 DC 02/07/21 20:06 4 MG Phenylephrine HCl (PHENYLEPHRINE in 0.9% NACL PF) 1 mg STK-MED ONCE 03/27/21 13:46 03/27/21 13:46 DC Piperacillin Sod/ Tazobactam Sod (Zosyn Per Pharmacy) 1 each PRN DAILY PRN 02/23/21 07:45 03/17/21 10:04 DC Piperacillin Sod/ Tazobactam Sod 2.25 gm/Sodium Chloride 50 ml @ 100 mls/hr Q8HRS 03/07/21 14:00 03/17/21 08:03 DC 03/17/21 05:58 100 MLS/HR Piperacillin Sod/ Tazobactam Sod 3.375 gm/Sodium Chloride 50 ml @ 100 mls/hr Q6HRS 03/14/21 18:00 Cancel Piperacillin Sod/ Tazobactam Sod 4.5 gm/Sodium Chloride 100 ml @ 200 mls/hr Q6HRS 02/23/21 08:00 03/07/21 08:18 DC 03/07/21 06:12 200 MLS/HR Potassium Chloride/Water 100 ml @ 100 mls/hr PRN Q1HR PRN 02/07/21 06:00 02/07/21 16:54 DC Potassium Chloride (Klor-Con) 40 meq 1X ONCE 02/13/21 12:00 02/13/21 12:01 DC 02/13/21 13:21 40 MEQ Prochlorperazine Edisylate (Compazine) 5 mg PACU PRN PRN 03/27/21 06:00 03/28/21 05:59 DC Propofol (Diprivan) 200 mg STK-MED ONCE 03/27/21 12:02 03/27/21 12:03 DC Remdesivir 100 mg/ Sodium Chloride 230 ml @ 460 mls/hr Q24H 02/15/21 12:00 02/18/21 12:29 DC 02/18/21 11:52 460 MLS/HR Remdesivir 200 mg/ Sodium Chloride 210 ml @ 210 mls/hr 1X ONCE 02/11/21 13:00 02/12/21 11:55 DC 02/11/21 14:33 210 MLS/HR Ringer's Solution 1,000 ml @ 30 mls/hr Q24H 03/27/21 06:00 03/27/21 17:59 DC Rocuronium [place] (Zemuron) 50 mg STK-MED ONCE 03/27/21 13:16 03/27/21 13:17 DC Sennosides (Senna) 17.2 mg PRN BID PRN 02/07/21 08:45 8/15/21 08:29 17.2 MG Sevoflurane (Ultane) 60 ml STK-MED ONCE 03/27/21 14:19 03/27/21 14:20 DC Sodium Chloride 1,000 ml @ 25 mls/hr Q24H 03/27/21 14:30 03/29/21 14:07 DC 03/28/21 14:30 25 MLS/HR Sodium Chloride (Normal Saline Flush) 3 ml QSHIFT PRN 03/27/21 14:30 Succinylcholine Chloride (Anectine) 200 mg STK-MED ONCE 02/17/21 10:00 02/25/21 08:40 DC Vancomycin HCl (Vanco Per Pharmacy) 1 each PRN DAILY PRN 03/04/21 18:30 03/05/21 08:59 DC 03/04/21 19:47 1 EACH Vancomycin HCl (Vancomycin Trough Level) 1 each 1X ONCE 03/06/21 07:00 03/06/21 07:01 Cancel Vancomycin HCl 1.5 gm/Sodium Chloride 500 ml @ 250 mls/hr Q12H 03/05/21 07:30 03/05/21 08:58 DC Vancomycin HCl 1 gm/Sodium Chloride 250 ml @ 250 mls/hr Q12H 03/04/21 20:00 UNV Vancomycin HCl 2 gm/Sodium Chloride 500 ml @ 250 mls/hr 1X ONCE 03/04/21 19:00 03/04/21 20:59 DC 03/04/21 19:26 250 MLS/HR Vecuronium [place] (Norcuron Bolus) 6 mg PRN Q2HRS PRN 03/06/21 14:30 03/16/21 10:16 5 MG Vitamin A/Vitamin D (Vitamin A & D Ointment) 1 reji PRN Q1HR PRN 03/10/21 01:45 03/20/21 09:34 1 REJI Lab Laboratory Tests Test 03/29/21 12:14 03/29/21 18:24 03/29/21 23:28 03/30/21 06:15 Glucose (Fingerstick) 137 mg/dL (70-99) 117 mg/dL (70-99) 111 mg/dL (70-99) White Blood Count 9.0 x10^3/uL (4.0-11.0) Red Blood Count 3.09 x10^6/uL (3.50-5.40) Hemoglobin 9.1 g/dL (12.0-15.5) Hematocrit 27.4 % (36.0-47.0) Mean Corpuscular Volume 89 fL (79-100) Mean Corpuscular Hemoglobin 29 pg (25-35) Mean Corpuscular Hemoglobin Concent 33 g/dL (31-37) Red Cell Distribution Width 15.2 % (11.5-14.5) Platelet Count 279 x10^3/uL (140-400) Neutrophils (%) (Auto) 44 % (31-73) Lymphocytes (%) (Auto) 14 % (24-48) Monocytes (%) (Auto) 10 % (0-9) Eosinophils (%) (Auto) 31 % (0-3) Basophils (%) (Auto) 1 % (0-3) Neutrophils # (Auto) 3.9 x10^3/uL (1.8-7.7) Lymphocytes # (Auto) 1.2 x10^3/uL (1.0-4.8) Monocytes # (Auto) 0.9 x10^3/uL (0.0-1.1) Eosinophils # (Auto) 2.8 x10^3/uL (0.0-0.7) Basophils # (Auto) 0.1 x10^3/uL (0.0-0.2) Segmented Neutrophils % 46 % (35-66) Band Neutrophils % 2 % (0-9) Lymphocytes % 15 % (24-48) Atypical Lymphocytes % (Manual) 1 % (0-0) Monocytes % 7 % (0-10) Eosinophils % 29 % (0-5) Platelet Estimate Adequate (ADEQUATE) Sodium Level 134 mmol/L (136-145) Potassium Level 3.9 mmol/L (3.5-5.1) Chloride Level 98 mmol/L (98-107) Carbon Dioxide Level 26 mmol/L (21-32) Anion Gap 10 (6-14) Blood Urea Nitrogen 34 mg/dL (7-20) Creatinine 5.0 mg/dL (0.6-1.0) Estimated GFR (Cockcroft-Gault) 9.4 Glucose Level 158 mg/dL (70-99) Calcium Level 8.4 mg/dL (8.5-10.1) Test 9/20/21 06:18 03/30/21 08:50 Glucose (Fingerstick) 160 mg/dL (70-99) O2 Saturation 97 % (92-99) Arterial Blood pH 7.40 (7.35-7.45) Arterial Blood pCO2 at Patient Temp 40 mmHg (35-46) Arterial Blood pO2 at Patient Temp 102 mmHg (75-108) Arterial Blood HCO3 24 mmol/L (21-28) Arterial Blood Base Excess -1 mmol/L (-3-3) FiO2 40 Results All relevant outside records, renal labs, imaging studies, telemetry/EKG's were reviewed. Justicifation of Admission Dx: Justifications for Admission: Justification of Admission Dx: N/A GIGI CARMEN MD Mar 30, 2021 09:21
--- NOTE | 2021-03-30 11:23 | PDOC ---
[facility] [facility] PROGRESS NOTE Date of Service DOS: DATE: 03/30/21 TIME: 11:21 Chief Complaint Chief Complaint CC: Covid-19 DKA Hypotension Nausea Vomiting Combined metabolic and respiratory acidosis Acute electrolyte derangementhyponatremia, hypochloremia due to volume depletion Hyperglycemia BOB due to ATN, requiring dialysis Erythrocytosis Candiduria Sacral decubitus ulcer S/P Trach on (03/17/21) Trach cultures positive for [place] albicans and now acinebacter ursungi History of Present Illness History of Present Illness Ms Borges is a 46 year old female who presented with nausea/vomiting since 7 AM 02/06/2021 in the morning. Patient stated that her recently tested positive for Covid. She states that he "coughed in my face because he thought it was funny." She reports subjective fevers and chills and nausea/vomiting. Denies sore throat, cough, shortness of breath. No chest pain. Does have some upper abdominal discomfort after vomiting, that she attributes to muscular strain. She was not vaccinated for Covid. 02/08: No acute events overnight. Patient seen and examined bedside and resting comfortably. Continues to complain of nausea not able to tolerate any diet at this time. Saturating 98% on room air. Patient's chart, labs, images were reviewed and discussed with RN 02/09: Afebrile, currently breathing on room air. Still with complaints of nausea and vomiting x3 today. States that she has history of similar symptoms that have been mildly improved with IV Dilaudid. 02/10: Patient febrile today with T-max 102.2 F. She still admits to nausea, denies any further vomiting. We will continue to provide supportive care and monitor for any recurrent fevers overnight. Patient continues to improve may discharge tomorrow to continue self-isolation. 02/11: Febrile overnight, T-max 102.3 F. She did become hypoxic overnight, currently breathing on 4 L nasal cannula. Also admits to associated vomiting or diarrhea overnight. Discussed with RN, will initiate remdesivir and closely monitor LFTs. IV Decadron, and prophylactic antibiotics. 02/12: Low-grade fever overnight, T-max 99.7. Currently breathing on room air. Will discontinue remdesivir, steroids, and antibiotics; will observe overnight. Still with complaints of vomiting x1 and diarrhea. We will continue to provide supportive care and hope to discharge in the next day or so. 02/13: Afebrile. Still complains of intermittent diarrhea. At the time of my evaluation she was breathing on 6 L nasal cannula; this is somewhat misleading as patient states that she did not feel short of breath but was placed on 6 L by nursing staff overnight. 02/14: Afebrile, currently breathing on 8 L nasal cannula. There has been some misleading documentation, chart oxygen this patient is requiring. Discussed with RN, will resume remdesivir to complete total of 5 days. Continue to monitor LFTs. Will add steroids, Rocephin, and azithromycin. 02/15: Afebrile. Became much more hypoxic overnight, requiring BiPAP. At the time of my evaluation she is still breathing on BiPAP. Consultation was placed to pulmonology. Had discussion with Dr. Myrick about initiating Tocilizumab 02/16: No acute events overnight. Patient becoming more hypoxic saturating 94% and requiring BiPAP. Patient will be transferred to the ICU at this time. For worsening clinical status. Discussed with pulmonary. Patient's chart, labs, images were reviewed and discussed with RN 02/17: Transferred to ICU yesterday afternoon. Seen and examined at bedside she remains on 100% FiO2 on BiPAP. Respirations do appear somewhat labored. Suspec t intubation may be impending. We will closely monitor. Increase lisinopril to 20 today. 02/18: Patient required intubation yesterday afternoon. Saw and examined this morning. She is intubated and sedated. Increase insulin today. Covid protocol ordered. Wean as tolerated. Plan of care discussed with bedside nurse. 02/19: Bedside. She remains intubated and sedated. Continue Covid protocol. Wean oxygen sedation as tolerated. Pulmonary following. Plan of care discussed with bedside RN. 02/20: Patient seen and examined at bedside. She remains intubated and sedated. No major clinical changes. Continue current treatment. Pulmonary following. Plan of care discussed with bedside RN. 02/21: Patient seen and examined at bedside. Remains intubated and sedated date and admission clinical changes. Increase free water flushes today due to hypernatremia. Plan of care discussed with bedside nurse. 02/22: Patient seen and examined at bedside. O2 requirement actually improving, although remains intubated. Possible SBT in the coming days. Hypernatremia improving. Plan of care discussed bedside RN. 02/23: Patient remains in ICU on ventilator with FiO2 100%, PEEP 7. Repeat chest x-ray yesterday showed diffuse bilateral pulmonary opacities with no interval improvement. Will discontinue Rocephin and initiate Zosyn. We will continue IV steroids for a full 10-day course 02/24: Afebrile. On vent with FiO2 40%, PEEP 6. Her Coreg has been held due to persistent bradycardia. No documented history of systolic heart failure or previous echocardiogram. Will need to obtain echocardiogram prior to discharge. Continue IV steroids and antibiotics. 02/25: Afebrile. Remains ventilated with FiO2 45%, PEEP 6. Chest x-ray today showed slight improvement of the pulmonary infiltrates, no pneumothorax. Completed 10-day course of IV Decadron. Will initiate slow Solu-Medrol taper. Continue IV Zosyn. Continue supportive care. 02/26: Afebrile. On vent with FiO2 45%, PEEP 6. Completed 10 days of IV Decadron. Will continue IV Zosyn. Continue supportive care. Critical care time 30 minutes spent reviewing charts, reviewing imaging, reviewing labs, discussion with RN. 02/27: Afebrile. On vent with FiO2 45%, PEEP 6. Completed 10 days of steroids and completed remdesivir. Continue with IV Zosyn. CPAP trial yesterday. Continue NG tube and supportive care. 02/28:. Patient remains on vent with FiO2 40%, PEEP 5. Afebrile. Completed steroids and remdesivir. Some noted hypoglycemia overnight, will de-escalate basal insulin. Continue IV Zosyn. Ventilator management per pulmonology. Continue NG tube and supportive care. 03/01: On vent with FiO2 40%, PEEP 5. Afebrile. Completed steroids and remdesivir. Blood glucose well controlled. Continue empiric antibiotics with Zosyn. Ventilator management per pulmonology. Continue NG tube and supportive care. 03/02: No acute events overnight. Patient hypotensive the morning due to oversedation. Will wean off sedation and keep antihypertensive medications on board. Currently saturating 100% on vent settings of 18/450/40/5. Will attempt spontaneous breathing trial today to see how patient does. 03/03: No acute events overnight. Patient saturating 98% on vent settings of 18/450/40/5. Will defer spontaneous breathing trials to pulmonary at this time. Patient's chart, labs, images were reviewed and discussed with RN 8: No acute events overnight. Patient saturating 9 9% on vent settings of 18/450/30/5. Patient currently is unable to tolerate weaning. Per pulmonary. Patient's chart, labs, images were reviewed and discussed with RN 03/05: No acute events overnight. Patient is saturating 97% on vent settings of 18/450/55/5. Her FiO2 needs to be increased due to abnormal ABG with 7.3 //24. Patient's chart, labs, images were reviewed and discussed with RN 8: No acute events overnight. Patient saturating 94% on vent settings of 18/450/55/5. Chest x-ray showing increase in pulmonary infiltrates. Wound care is consulted for decubitus ulcer patient's chart, labs, images were reviewed and discussed with RN 03/07: No acute events overnight. Patient saturating 94% on vent settings of 20/450/70/8. Patient now heading into renal failure with her creatinine bumped up from 1.5-4.2. Decreased urine output. Plan for hemodialysis today and temporary catheter placement and nephrology is consulted. 03/08: No acute events overnight. Patient did have a nausea vomiting episode and tube feeds were held. KUB repeat shows NG tube still in the stomach. Will resume tube feeds at trickle and advance to goal today. Will start hemodialysis soon. 03/09: Seen on vent 20/450/60%/8. ABG 7.2 WBC 11.4, Hb 7.4, platelets 188, NA 131, K4.9, BUN 48, CR 51, glucose 199, phosphorus 7.9, mag 2.2, AST 265 ALT 219, albumin 1.1. Chest radiograph appears unchanged from prior. Dialysis x1 today 03/10: Afebrile. Seen on vent, 20/450/60/7 with ABG 7.3 . Tolerated dialysis well on 03/09. LFTs similar. 03/11: Afebrile. Seen on vent, sedated. Still requiring Levophed for BP support. WBC 16.7, Hb 8.1, NA 130, ABG 7.3 on 55% FiO2 PEEP 6. On Zosyn and Zyvox Diflucan. Dialysis today 03/12: Afebrile. Still requiring Levophed for BP support sedated with Versed febrile Precedex. WBC 16.1, Hb 8.5, platelets 185, NA 133. Trach plan tentatively 03/17. O2 saturations 93% on 50% FiO2 PEEP 6. ABG 7. On Zosyn and Zyvox Diflucan. 03/13: Afebrile. Still on Levophed for BP support lightly sedated. 7. on 45% FiO2. Plan for dialysis today. On Zosyn and Zyvox Diflucan. More swollen today. 03/14: Afebrile. Weaning down off Levophed. WBC 14.9 NA 132. O2 saturations 92% on 45% FiO2 PEEP 5. Afebrile. O2 saturations 91% on FiO2 45% PEEP 6. Continued on Zosyn and Zyvox Diflucan. Tentative trach planned 03/17/2021 CC time 31 minutes 03/16/21: Patient seen and examined in ICU. Periorbital as well as upper and lower extremity edema noted. OG feed running at 30cc/hr. Still on vent on pressure control with a rate of 24 with 45% FiO2. Patient has rectal bag. Currently she has 98% O2 sat. Currently sedated with Dexmedetomidine, Propofol, Versed, and Fentanyl. Discussed with RN. Chart reviewed. 03/17/21: Patient was seen and examined in the ICU today. Periorbital edema as well as abdominal and mons pubis edema was noted. Patient still on vent on pressure control with Fi02 of 45% plus 6 PEEP. Patient had rectal bag. Currently sedated on Dexmedetomidine, Propofol, Versed, and Fentanyl. Discussed with RN. Chart reviewed. 03/18/21: Patient seen and examined in ICU. On vent via trach that was placed yesterday. Vent settings are Pressure Control of 40 with FiO2 of 45% and 6 PEEP. Trach clean and dry. Orbital swelling still present. Pupils are sluggish. Patient on TPN running at 30cc/hr. Kern to bedside and rectal bag in place. Current O2 sat at 94%. Sedated on Dexmedetomidine, Propofol, Versed, and Fentanyl. Discussed with RN. Chart reviewed. 03/19/21: Patient was seen and examined in the ICU today. Currently on vent via trach on pressure control of 42, rate of 24, FiO2 of 45%, and 6 PEEP. O2 sat is at 97% while patient is being examined. Trach is clean and dry. PICC line is in place on right arm. Periorbital swelling has decreased slightly since examined yesterday. Patient is sedated on Dexmedetomidine, Propofol, Versed, and Fentanyl. Discussed with RN. Chart reviewed. 03/20/21: Patient seen and examined in the ICU. Periorbital edema is slightly decreased since yesterday. O2 sat while being examined was 93%. NG tube in place and running at 30cc/hr. Patient on vent via trach on pressure control of 40 with FiO2 of 45 and rate of 24. Sedated on Dexmedetomidine, Propofol, Versed, and Fentanyl. PICC line in place. Kern to bedside. Rectal bag present. Discussed with RN. Chart reviewed. 03/21/21: Patient was seen and examined in the ICU today. She was semi-sedated.. She was on Dexmedetomidine and Fentanyl. We are holding the Propofol. Her eyes were periodically open but she was not making meaningful eye contact or tracking. On vent via trach with pressure control of 40 and FiO2 at 45. Rate was 24. PEEP was 5. Trach was clean and dry. While being examined, her O2 sat was 94%. Rectal bag and Kern to bedside in place. NG tube in place and feeding at 30cc/hr. IV fluids still running. Levophed has been stopped. Discussed with RN. Chart reviewed. 03/22/21: Patient was seen and examined in the ICU. She was semi-sedated on Propofol and Dexmedetomidine. Her eyes were open but she did not make meaningful eye contact. Her blood pressure was elevated (198/102) while being examined and she had just been given hydralazine to lower it. There are plans to place a PEG tube tomorrow. Currently on vent via trach on pressure control of 40 with FiO2 of 45%, 5 PEEP, and a rate of 24. Current O2 sat is 98%. She is feeding through an NG tube at 30cc/hr. Rectal bag and Kern to bedside present. SCDs on patient for DVT prophylaxis. She did not do her daily dialysis today but the plan is to start back on that tomorrow. Discussed with RN. Chart reviewed. 03/23/2021: Patient remains in ICU on ventilator. FiO2 40%, PEEP 5. Trach cultures positive for [place] albicans and acinebacter ursungi. We will continue treatment with IV antibiotics and micafungin, per ID. HD per nephrology. Plans for PEG tube placement today. 30 minutes critical care time was spent reviewing charts, reviewing labs, reviewing imaging, discussion with RN. 03/24/2021: Afebrile. On vent with FiO2 45%, PEEP 5. Had attempted PEG placement per GI yesterday, but unable to locate safe path for PEG; will consider surgical opinion. Once PEG is in place she should be stable for LTAC transfer when accepted. Continue antibiotics, per ID. 30 minutes critical care time was spent reviewing charts, reviewing labs, reviewing imaging, discussion with RN. 03/25/2021: Febrile overnight with T-max 101.5 F. On vent with FiO2 45%, PEEP 5. Surgery has been consulted with tentative plans for laparoscopic versus open gastrostomy placement tomorrow. Trach cultures positive for [place] albicans and now acinebacter ursungi; will continue antibiotic management, per ID. Hemodialysis, per nephrology. Patient needing LTAC placement, but currently without benefits. restuarant crew worker following for discharge planning. Critical care time 30 minutes spent reviewing charts, reviewing labs, reviewing imaging, discussion with RN. 03/26/2021: Febrile today with T-max 100.5 F. Awake on vent with FiO2 45%, PEEP 5. When I ask if she remembers any she nods. G-tube placement scheduled for tomorrow, per general surgery. Chest x-ray today showed slight interval increase in diffuse infiltrate. Continue antibiotic management, per ID. Hemodialysis per nephrology. Reportedly did not tolerate CPAP trial this morning. restuarant crew worker following for LTAC placement. Critical care time 30 minutes spent reviewing charts, reviewing labs, reviewing imaging, discussion with RN. 03/27/2021: On vent with FiO2 45%, PEEP 5. Afebrile today. Continue treatment of acute renal failure requiring HD, per nephrology. Monitor kidney function for recovery. G-tube placement scheduled for today, per general surgery. Likely LTAC placement soon, but this is been a difficult as she is self-pay without benefits; high school social science teacher following. Critical care time 30 minutes spent reviewing charts, reviewing labs, reviewing imaging, discussion with RN. 03/28/2021: Afebrile. On vent with FiO2 40%, PEEP 5. Had laparoscopic gastrostomy tube placed yesterday, per general surgery. Continue treatment of acute renal failure requiring HD, per nephrology. Continue IV antibiotics, per ID. Likely LTAC placement soon, but this is been a difficult as she is self-pay without benefits; high school social science teacher following. Critical care time 30 minutes spent reviewing charts, reviewing labs, reviewing imaging, discussion with RN. 03/29/2021: Afebrile. On vent with FiO2 45%, PEEP 5. S/P laparoscopic gastrostomy tube; tube feeds running. HD, per nephrology. Continue meropenem, per ID. Anticipate LTAC placement soon now that PEG has being placed; high school social science teacher helping in these regards. Critical care time 30 minutes spent reviewing charts, reviewing labs, reviewing imaging, discussion with RN. 03/30 No major events or clinical changes overnight. Patient evaluated at bedside this morning on trach and G-tube. Tolerating these well. Has been working on insurance for patient for placement as she will need long-term care. Guarded prognosis. Plan of care discussed with bedside nurse. Vitals/I&O Vitals/I&O: Vital Signs Date Time Temp Pulse Resp B/P (MAP) Pulse Ox O2 Delivery O2 Flow Rate FiO2 03/30/21 11:00 58 18 140/71 (94) 99 Ventilator 03/30/21 08:00 98.2 98.2 03/29/21 20:31 90.5 I & O 03/29/21 03/29/21 03/30/21 15:00 23:00 07:00 Intake Total 0 ml 1016 ml 503.8 ml Output Total 800 ml 375 ml Balance 0 ml 216 ml 128.8 ml Physical Exam Physical Exam: GENERAL: Intubated HEENT: Normocephalic, atraumatic. Anicteric. Slight bilateral periorbital edema. Neck right IJ HDC clean Trach + LUNGS: Rhonchi. HEART: S1, S2. No murmurs. ABDOMEN: Obese, soft. Bowel sounds present. Nontender, nondistended. Abdominal and pubis mons edema noted. PEG tube in place GENITOURINARY: Kern and fecal tube in place. EXTREMITIES: Edema present no cyanosis. CENTRAL NERVOUS SYSTEM: Intubated. PSYCHIATRIC: Unable to assess. Derm has pressure wounds wound pictures noted in chart. Generalized rash, PICC line , right IJ HDC clean General: No acute distress, Other (sedated) Heart: Regular rate, Normal S1, Normal S2 Lungs: Clear Abdomen: Soft, Other (G-tube in place) Extremities: Other (ANASARCA) Skin: No rashes, No significant lesion Labs Labs: Laboratory Tests Test 03/29/21 12:14 03/29/21 18:24 03/29/21 23:28 03/30/21 06:15 Glucose (Fingerstick) 137 mg/dL (70-99) 117 mg/dL (70-99) 111 mg/dL (70-99) White Blood Count 9.0 x10^3/uL (4.0-11.0) Red Blood Count 3.09 x10^6/uL (3.50-5.40) Hemoglobin 9.1 g/dL (12.0-15.5) Hematocrit 27.4 % (36.0-47.0) Mean Corpuscular Volume 89 fL (79-100) Mean Corpuscular Hemoglobin 29 pg (25-35) Mean Corpuscular Hemoglobin Concent 33 g/dL (31-37) Red Cell Distribution Width 15.2 % (11.5-14.5) Platelet Count 279 x10^3/uL (140-400) Neutrophils (%) (Auto) 44 % (31-73) Lymphocytes (%) (Auto) 14 % (24-48) Monocytes (%) (Auto) 10 % (0-9) Eosinophils (%) (Auto) 31 % (0-3) Basophils (%) (Auto) 1 % (0-3) Neutrophils # (Auto) 3.9 x10^3/uL (1.8-7.7) Lymphocytes # (Auto) 1.2 x10^3/uL (1.0-4.8) Monocytes # (Auto) 0.9 x10^3/uL (0.0-1.1) Eosinophils # (Auto) 2.8 x10^3/uL (0.0-0.7) Basophils # (Auto) 0.1 x10^3/uL (0.0-0.2) Segmented Neutrophils % 46 % (35-66) Band Neutrophils % 2 % (0-9) Lymphocytes % 15 % (24-48) Atypical Lymphocytes % (Manual) 1 % (0-0) Monocytes % 7 % (0-10) Eosinophils % 29 % (0-5) Platelet Estimate Adequate (ADEQUATE) Sodium Level 134 mmol/L (136-145) Potassium Level 3.9 mmol/L (3.5-5.1) Chloride Level 98 mmol/L (98-107) Carbon Dioxide Level 26 mmol/L (21-32) Anion Gap 10 (6-14) Blood Urea Nitrogen 34 mg/dL (7-20) Creatinine 5.0 mg/dL (0.6-1.0) Estimated GFR (Cockcroft-Gault) 9.4 Glucose Level 158 mg/dL (70-99) Calcium Level 8.4 mg/dL (8.5-10.1) Test 03/30/21 06:18 03/30/21 08:50 Glucose (Fingerstick) 160 mg/dL (70-99) O2 Saturation 97 % (92-99) Arterial Blood pH 7.40 (7.35-7.45) Arterial Blood pCO2 at Patient Temp 40 mmHg (35-46) Arterial Blood pO2 at Patient Temp 102 mmHg (75-108) Arterial Blood HCO3 24 mmol/L (21-28) Arterial Blood Base Excess -1 mmol/L (-3-3) FiO2 40 Assessment and Plan Assessmemt and Plan Problems Medical Problems: (1) Ketoacidosis Status: Acute Comment Review of Relevant I have reviewed the following items mazin (where applicable) has been applied. Medications: Current Medications Medications (Trade) Dose Ordered Sig/Pepe Route PRN Reason Start Time Stop Time Status Last Admin Dose Admin Furosemide (Lasix) 40 mg 1X ONCE IVP 03/29/21 15:00 03/29/21 15:02 DC 03/29/21 15:22 Justifications for Admission Other Justification LEO DELGADO MD Mar 30, 2021 11:23
[2021-03-30] MEDS ORDERED: DIALYSIS PATIENT. MC PRN (13:00)
[2021-03-30] MEDS ORDERED: ALBUMIN HUMAN 25% 100 ML IV ONE (15:45)
--- NOTE | 2021-03-30 15:46 | NUR ---
SS following up with discharge planning. SS reviewed pt chart and discussed with pt RN. Pt is currently on the vent at 40%. COVID19 recovered. G tube and trach in place. Pt on IV Meropenem. Pt on Sub Q Heparin, Fentanyl, Precedex, and Propofol. PT/OT on hold. Self pay. Med Assist following and currently awaiting pt's spouse to produce two more needed documents for Medicaid and Disability application. Pt needing LTACH but has no benefits at this time. SS will continue to follow for discharge planning.
[2021-03-30] MEDS: MEROPENEM 1 GM in IV NORMAL SALINE 100ML 100 ML IV SCH (17:52)
[2021-03-30] MEDS: hydrALAZINE 20 MG/ML VIAL. IVP PRN (18:35)
[2021-03-30] MEDS: ATORVASTATIN CALCIUM 40 MG TABLET. PO SCH (20:42)
[2021-03-31] VITALS (24 sets, daily range): BP systolic 114–218; BP diastolic 53–116
[2021-03-31] MEDS: PROPOFOL 100 ML IV PRN ×5 (00:19→22:55)
[2021-03-31] MEDS: DEXMEDETOMIDINE 400 MCG in IV NORMAL SALINE 100ML 96 ML IV PRN ×8 (01:45→22:35)
[2021-03-31 05:28] LABS: BASO # 0.1 x10^3/uL (0.0-0.2); BASO % 1 % (0-3); EOS # 1.8 x10^3/uL (0.0-0.7); EOS % 17 % (0-3); HEMATOCRIT 26.6 % (36.0-47.0); HEMOGLOBIN 9.1 g/dL (12.0-15.5); LYMPH # 1.2 x10^3/uL (1.0-4.8); LYMPH % 11 % (24-48); MEAN CORPUSCULAR HEMOGLOBIN 30 pg (25-35); MEAN CORPUSCULAR HGB CONC 34 g/dL (31-37); MEAN CORPUSCULAR VOLUME 88 fL (79-100); MONO # 0.6 x10^3/uL (0.0-1.1); MONO % 5 % (0-9); NEUT # 7.1 x10^3/uL (1.8-7.7); NEUT % 66 % (31-73); PLATELET COUNT 260 x10^3/uL (140-400); RED BLOOD COUNT 3.01 x10^6/uL (3.50-5.40); RED CELL DISTRIBUTION WIDTH 14.5 % (11.5-14.5); WHITE BLOOD COUNT 10.8 x10^3/uL (4.0-11.0)
[2021-03-31 05:31] LABS: CALCIUM 8.7 mg/dL (8.5-10.1); CREATININE 4.1 mg/dL (0.6-1.0); GFR 11.8; POTASSIUM 4.1 mmol/L (3.5-5.1)
[2021-03-31] MEDS: INSULIN LISPRO 300 UNITS/3 ML VIAL. SQ SCH ×4 (06:01→17:57)
[2021-03-31] MEDS: HEPARIN for SUB-Q USE 5,000 UNIT/ML VIAL. SQ SCH ×3 (06:01→22:14)
[2021-03-31] MEDS: fentaNYL HIGH DOSE PCA 55 ML IV PRN (07:12)
[2021-03-31] MEDS: MULTIVITAMINS,THERAPEUTIC 5 ML ORAL LIQUID. PEG SCH (07:49)
[2021-03-31] MEDS: FAMOTIDINE 20 MG/2 ML VIAL IVP SCH (07:49)
[2021-03-31] MEDS: hydrALAZINE 20 MG/ML VIAL. IVP PRN (07:49)
[2021-03-31] MEDS: DOCUSATE 100 MG/10 ML SOLUTION. PO SCH ×2 (07:50→21:14)
[2021-03-31] MEDS: INSULIN GLARGINE SYRINGE. SQ SCH ×2 (07:51→21:21)
[2021-03-31] MEDS: NYSTATIN TOPICAL POWDER 15GM BOTTLE. TP SCH ×2 (07:51→21:22)
--- NOTE | 2021-03-31 08:54 | PDOC ---
PULMONARY PROGRESS NOTES DATE: 03/31/21 TIME: 08:54 Subjective No overnight events Did not tolerate pressure support well yesterday patient sedated, currently 40% FiO2 5 of PEEP s/p lap G-tube 03/27 Vitals Vital Signs Date Time Temp Pulse Resp B/P (MAP) Pulse Ox O2 Delivery O2 Flow Rate FiO2 03/31/21 08:41 92 186/82 03/31/21 08:00 98.4 26 98 Ventilator 98.4 Comments on vent sedated trach Lungs: Clear Cardiovascular: S1 Abdomen: Soft, Non-tender Skin: Warm Labs Laboratory Tests Test 03/29/21 12:14 03/29/21 18:24 03/29/21 23:28 03/30/21 06:15 Glucose (Fingerstick) 137 mg/dL (70-99) 117 mg/dL (70-99) 111 mg/dL (70-99) White Blood Count 9.0 x10^3/uL (4.0-11.0) Red Blood Count 3.09 x10^6/uL (3.50-5.40) Hemoglobin 9.1 g/dL (12.0-15.5) Hematocrit 27.4 % (36.0-47.0) Mean Corpuscular Volume 89 fL (79-100) Mean Corpuscular Hemoglobin 29 pg (25-35) Mean Corpuscular Hemoglobin Concent 33 g/dL (31-37) Red Cell Distribution Width 15.2 % (11.5-14.5) Platelet Count 279 x10^3/uL (140-400) Neutrophils (%) (Auto) 44 % (31-73) Lymphocytes (%) (Auto) 14 % (24-48) Monocytes (%) (Auto) 10 % (0-9) Eosinophils (%) (Auto) 31 % (0-3) Basophils (%) (Auto) 1 % (0-3) Neutrophils # (Auto) 3.9 x10^3/uL (1.8-7.7) Lymphocytes # (Auto) 1.2 x10^3/uL (1.0-4.8) Monocytes # (Auto) 0.9 x10^3/uL (0.0-1.1) Eosinophils # (Auto) 2.8 x10^3/uL (0.0-0.7) Basophils # (Auto) 0.1 x10^3/uL (0.0-0.2) Segmented Neutrophils % 46 % (35-66) Band Neutrophils % 2 % (0-9) Lymphocytes % 15 % (24-48) Atypical Lymphocytes % (Manual) 1 % (0-0) Monocytes % 7 % (0-10) Eosinophils % 29 % (0-5) Platelet Estimate Adequate (ADEQUATE) Sodium Level 134 mmol/L (136-145) Potassium Level 3.9 mmol/L (3.5-5.1) Chloride Level 98 mmol/L (98-107) Carbon Dioxide Level 26 mmol/L (21-32) Anion Gap 10 (6-14) Blood Urea Nitrogen 34 mg/dL (7-20) Creatinine 5.0 mg/dL (0.6-1.0) Estimated GFR (Cockcroft-Gault) 9.4 Glucose Level 158 mg/dL (70-99) Calcium Level 8.4 mg/dL (8.5-10.1) Test 03/30/21 06:18 03/30/21 08:50 03/30/21 11:40 03/30/21 17:51 Glucose (Fingerstick) 160 mg/dL (70-99) 101 mg/dL (70-99) 102 mg/dL (70-99) O2 Saturation 97 % (92-99) Arterial Blood pH 7.40 (7.35-7.45) Arterial Blood pCO2 at Patient Temp 40 mmHg (35-46) Arterial Blood pO2 at Patient Temp 102 mmHg (75-108) Arterial Blood HCO3 24 mmol/L (21-28) Arterial Blood Base Excess -1 mmol/L (-3-3) FiO2 40 Test 03/31/21 00:18 03/31/21 05:15 03/31/21 07:50 Glucose (Fingerstick) 150 mg/dL (70-99) 169 mg/dL (70-99) White Blood Count 10.8 x10^3/uL (4.0-11.0) Red Blood Count 3.01 x10^6/uL (3.50-5.40) Hemoglobin 9.1 g/dL (12.0-15.5) Hematocrit 26.6 % (36.0-47.0) Mean Corpuscular Volume 88 fL (79-100) Mean Corpuscular Hemoglobin 30 pg (25-35) Mean Corpuscular Hemoglobin Concent 34 g/dL (31-37) Red Cell Distribution Width 14.5 % (11.5-14.5) Platelet Count 260 x10^3/uL (140-400) Neutrophils (%) (Auto) 66 % (31-73) Lymphocytes (%) (Auto) 11 % (24-48) Monocytes (%) (Auto) 5 % (0-9) Eosinophils (%) (Auto) 17 % (0-3) Basophils (%) (Auto) 1 % (0-3) Neutrophils # (Auto) 7.1 x10^3/uL (1.8-7.7) Lymphocytes # (Auto) 1.2 x10^3/uL (1.0-4.8) Monocytes # (Auto) 0.6 x10^3/uL (0.0-1.1) Eosinophils # (Auto) 1.8 x10^3/uL (0.0-0.7) Basophils # (Auto) 0.1 x10^3/uL (0.0-0.2) Sodium Level 135 mmol/L (136-145) Potassium Level 4.1 mmol/L (3.5-5.1) Chloride Level 97 mmol/L (98-107) Carbon Dioxide Level 27 mmol/L (21-32) Anion Gap 11 (6-14) Blood Urea Nitrogen 26 mg/dL (7-20) Creatinine 4.1 mg/dL (0.6-1.0) Estimated GFR (Cockcroft-Gault) 11.8 Glucose Level 194 mg/dL (70-99) Calcium Level 8.7 mg/dL (8.5-10.1) Troponin I Quantitative < 0.017 ng/mL (0.000-0.055) Laboratory Tests Test 03/30/21 11:40 03/30/21 17:51 03/31/21 00:18 03/31/21 05:15 Glucose (Fingerstick) 101 mg/dL (70-99) 102 mg/dL (70-99) 150 mg/dL (70-99) 169 mg/dL (70-99) White Blood Count 10.8 x10^3/uL (4.0-11.0) Red Blood Count 3.01 x10^6/uL (3.50-5.40) Hemoglobin 9.1 g/dL (12.0-15.5) Hematocrit 26.6 % (36.0-47.0) Mean Corpuscular Volume 88 fL (79-100) Mean Corpuscular Hemoglobin 30 pg (25-35) Mean Corpuscular Hemoglobin Concent 34 g/dL (31-37) Red Cell Distribution Width 14.5 % (11.5-14.5) Platelet Count 260 x10^3/uL (140-400) Neutrophils (%) (Auto) 66 % (31-73) Lymphocytes (%) (Auto) 11 % (24-48) Monocytes (%) (Auto) 5 % (0-9) Eosinophils (%) (Auto) 17 % (0-3) Basophils (%) (Auto) 1 % (0-3) Neutrophils # (Auto) 7.1 x10^3/uL (1.8-7.7) Lymphocytes # (Auto) 1.2 x10^3/uL (1.0-4.8) Monocytes # (Auto) 0.6 x10^3/uL (0.0-1.1) Eosinophils # (Auto) 1.8 x10^3/uL (0.0-0.7) Basophils # (Auto) 0.1 x10^3/uL (0.0-0.2) Sodium Level 135 mmol/L (136-145) Potassium Level 4.1 mmol/L (3.5-5.1) Chloride Level 97 mmol/L (98-107) Carbon Dioxide Level 27 mmol/L (21-32) Anion Gap 11 (6-14) Blood Urea Nitrogen 26 mg/dL (7-20) Creatinine 4.1 mg/dL (0.6-1.0) Estimated GFR (Cockcroft-Gault) 11.8 Glucose Level 194 mg/dL (70-99) Calcium Level 8.7 mg/dL (8.5-10.1) Test 03/31/21 07:50 Troponin I Quantitative < 0.017 ng/mL (0.000-0.055) Medications Active Scripts Medications Dose Route/Sig Max Daily Dose Days Date Category Novolog Flexpen (Insulin Aspart) 100 Unit/1 Ml Insuln.pen 3-7 SQ TIDACHC 02/07/21 Reported Lisinopril 5 Mg Tablet 1 Tab PO DAILY 02/07/21 Reported Lantus Solostar (Insulin Glargine,Hum.rec.anlog) 100 Unit/1 Ml Insuln.pen 5 Unit SQ QHS 04/09/15 Reported Atorvastatin Calcium 40 Mg Tablet 40 Mg PO HS 04/09/15 Reported Comments Chest x-ray reviewed 03/26/2021. Unchanged bilateral diffuse interstitial infiltrates 03/20/21 CXR IMPRESSION: Continued presence of diffuse pulmonary opacities bilaterally without interval improvement. Impression . IMPRESSION: 1. Acute hypoxic respiratory failure secondary to COVID-19 viral pneumonia/acute lung injury and early acute respiratory distress syndrome. S/P intubation 02/17/21. Status post tracheostomy. 2. Nonsmoker. 3. Abnormal chest x-ray consistent with COVID-19 viral pneumonia. 4. Diabetic ketoacidosis--resolved 5. Underlying obesity contributing to hypoxia as well. 6. BOB . hemodialysis started 03/07 7. Fever, 8. Abnormal chest x-ray with diffuse interstitial infiltrates compatible with viral pneumonia 9. [place] in the sputum is a contamination 10. Septic shoc 11. s/p lap G-tube 03/27 Plan . Updated 03/31 Discussed with RN and RT try pressure support today, decrease sedation Continue current support Hemodialysis DVT GI prophylaxis Nutrition also Updated 03/30 Patient had temperature elevation yesterday defer to ID Oxygenation has improved Patient due to moved to LTAC Hemodialysis. Nephrology Nutritional support DVT prophylaxis Discussed with RN and RT updated 03/29/21 has episode of agitation and cough cont vent support setting reviewed decrease sedation start weaning as tolerated s/p lap G-tube 03/27 As needed Lasix Follow CXR/ABG Follow nephrology recs Monitor HBG , follow GI recs Follow ID recs for ABX Hemodialysis per renal DVT/GI PPX D/W RN and RT Updated 03/28/21 cont vent support setting reviewed decrease sedation start weaning as tolerated s/p lap G-tube 03/27 As needed Lasix Follow CXR/ABG Follow nephrology recs Monitor HBG , follow GI recs Follow ID recs for ABX Hemodialysis per renal DVT/GI PPX D/W RN and RT MONTEZ OROPEZA MD Mar 31, 2021 08:54
[2021-03-31 09:13] LABS: BASE EXCESS ABG 0 mmol/L (-3-3); HCO3 ABG 24 mmol/L (21-28); PCO2 ABG 35 mmHg (35-46); PO2 ABG 106 mmHg (75-108); SAT O2 ABG 98 % (92-99)
--- NOTE | 2021-03-31 10:10 | PDOC ---
DATE OF SERVICE DATE: 03/31/21 TIME: 10:04 SUBJECTIVE ROS On vent , sedated OBJECTIVE Vital Signs Vital Signs Date Time Temp Pulse Resp B/P (MAP) Pulse Ox O2 Delivery O2 Flow Rate FiO2 03/31/21 09:00 93 22 168/76 (106) 99 Ventilator 03/31/21 08:00 98.4 98.4 I & 0 Intake and Output 03/31/21 07:00 Intake Total 2070 ml Output Total 1390 ml Balance 680 ml IV Total 1370 ml Tube Feeding 670 ml Other 30 ml Output Urine Total 1390 ml PHYSICAL EXAM Physical Exam GENERAL: On vent, awake HEENT: Anicteric. . Neck Trach+ LUNGS: decreased at bases HEART: S1, S2. No murmurs. ABDOMEN: Obese, soft. Bowel sounds present. GENITOURINARY: Ekrn and rectal tube in place. EXTREMITIES: Edema present no cyanosis. CENTRAL NERVOUS SYSTEM: awake, on vent PSYCHIATRIC: Unable to assess. DERM has pressure wounds DIAGNOSIS/ASSESSMENT Assessment & Plan BOB-ATN- was anuric , now non Oliguric - improvement in UOp , No improvement in renal function - requiring dialysis., currently on MWF schedule, UF 5 Kg yesterday Supportive care, I/O avoid nephrotoxins, Monitor for recovery .Access- temp HDC HypoNatremia - mild , stable HypoKalemia - Normal K DM 2 - Glucosuria + POA COVID 19 Pneumonia - Unvaccinated Acute Resp Failure- Intubated , CxR 03/20- Continued presence of diffuse pulmonary opacities bilaterally without interval improvement. HTN antihypertensives Anemia -avoid DOYLE 2/2 to Thrombogenic state Family History of ESRD - Per at bedside- Pt's Mom was on dialysis and sister is on Dialysis COMMENT/RELEVANT DATA Meds Current Medications Medications (Trade) Dose Ordered Sig/Pepe Start Time Stop Time Status Last Admin Dose Admin Acetaminophen (Tylenol Supp) 650 mg PRN Q6HRS PRN 02/08/21 01:45 02/17/21 10:45 DC Acetaminophen (Tylenol) 500 mg 1X PRN PRN 03/17/21 13:30 03/18/21 13:29 DC Albumin Human 100 ml @ 100 mls/hr 1X ONCE 03/30/21 15:45 03/30/21 16:44 DC 03/30/21 15:44 100 MLS/HR Albuterol Sulfate (Ventolin Hfa) 60 puff STK-MED ONCE 03/17/21 11:29 03/17/21 11:29 DC Alteplase, Recombinant (Cathflo For Central Catheter Clearance) 1 mg 1X ONCE 02/27/21 14:30 02/27/21 14:36 DC 02/27/21 15:19 1 MG Alteplase, Recombinant (Cathflo) 2 mg 1X ONCE 02/27/21 11:00 02/27/21 11:01 DC 02/27/21 11:20 2 MG Amlodipine Besylate (Norvasc) 10 mg DAILY 03/31/21 09:00 03/31/21 08:41 10 MG Atorvastatin Calcium (Lipitor) 40 mg HS 02/08/21 21:00 03/30/21 20:42 40 MG Atropine Sulfate (ATROPINE 0.5mg SYRINGE) 0.5 mg PRN Q5MIN PRN 02/16/21 12:00 Azithromycin 250 mg/Sodium Chloride 250 ml @ 250 mls/hr Q24H 02/14/21 13:30 02/18/21 14:29 DC 02/18/21 11:51 250 MLS/HR Benzonatate (Tessalon Perle) 100 mg [id number] 02/10/21 23:30 02/17/21 10:45 DC 02/16/21 22:07 100 MG Bupivacaine HCl/ Epinephrine Bitart (Sensorcain-Epi 0.5% Kit) 30 ml STK-MED ONCE 03/27/21 10:05 03/27/21 10:05 DC 03/27/21 13:12 16 ML Bupivacaine HCl/ Epinephrine Bitart (Sensorcain-Epi 0.5%-1:[id number] Mpf) 30 ml STK-MED ONCE 03/17/21 10:47 03/17/21 10:47 DC Carvedilol (Coreg) 6.25 mg [id number] 02/08/21 20:30 02/23/21 15:50 DC 02/23/21 08:06 6.25 MG Cefazolin Sodium/ Dextrose (Ancef 2gm Premix) 2 gm STK-MED ONCE 03/23/21 13:00 03/24/21 11:58 DC Ceftriaxone Sodium (Rocephin) 1 gm Q24H 02/14/21 13:00 02/23/21 07:34 DC 02/22/21 12:42 1 GM Cellulose (Surgicel Fibrillar 1x2) 1 each STK-MED ONCE 03/17/21 10:47 03/17/21 10:47 DC 03/17/21 11:56 1 EACH Daptomycin 480 mg/ Sodium Chloride 50 ml @ 100 mls/hr QMWF 03/23/21 16:00 03/26/21 10:29 DC 03/25/21 19:52 100 MLS/HR Dexamethasone Sodium Phosphate (Decadron) 2 mg 1X ONCE 02/27/21 09:00 02/26/21 07:15 DC Dexmedetomidine HCl 400 mcg/ Sodium Chloride 100 ml @ 0 mls/hr CONT PRN 02/27/21 09:45 03/31/21 10:01 31.9 MLS/HR Dextrose (Dextrose 50%-Water Syringe) 12.5 gm PRN Q15MIN PRN 03/01/21 13:00 03/01/21 12:55 12.5 GM Diphenhydramine HCl (Benadryl) 25 mg 1X PRN PRN 03/17/21 13:30 03/18/21 13:29 DC Docusate Sodium (Colace Solution) 100 mg BID 02/23/21 12:00 03/31/21 07:50 100 MG Docusate Sodium (Colace) 100 mg PRN DAILY PRN 02/07/21 08:45 02/23/21 10:47 DC Enalaprilat (Vasotec Inj) 0.625 mg Q6HRS 02/08/21 16:15 02/09/21 16:01 DC 02/09/21 13:42 0.625 MG Enoxaparin Sodium (Lovenox 30mg Syringe) 30 mg Q24H 03/08/21 09:00 03/12/21 15:38 DC 03/12/21 09:04 30 MG Enoxaparin Sodium (Lovenox 40mg Syringe) 40 mg BID 02/09/21 09:00 03/08/21 13:56 DC 03/08/21 08:26 40 MG Enoxaparin Sodium (Lovenox Per Pharmacy Prophylaxis Dosing) 1 each PRN DAILY PRN 02/09/21 06:45 03/12/21 15:38 DC Ephedrine Sulfate (ePHEDrine PF IN SALINE SYRINGE) 50 mg STK-MED ONCE 03/17/21 10:56 03/17/21 10:56 DC Famotidine (Pepcid Vial) 20 mg DAILY 03/10/21 09:00 03/31/21 07:49 20 MG Fentanyl Citrate (Fentanyl 2ml Vial) 100 mcg STK-MED ONCE 03/27/21 13:18 03/27/21 13:18 DC Fluconazole/ Sodium Chloride 100 ml @ 100 mls/hr Q24H 03/07/21 09:00 03/17/21 08:03 DC 03/16/21 08:29 100 MLS/HR Furosemide (Lasix) 40 mg 1X ONCE 03/29/21 15:00 03/29/21 15:02 DC 03/29/21 15:22 40 MG Glycerin/ Hypromellose/ Polyethylene (Artificial Tears) 1 drop PRN Q1HR PRN 02/17/21 10:00 Glycopyrrolate (Robinul) 1 mg STK-MED ONCE 03/27/21 14:07 03/27/21 14:07 DC Guaifenesin (Robitussin Dm) 10 ml PRN Q6HRS PRN 02/10/21 23:30 02/16/21 09:06 10 ML Haloperidol Lactate (Haldol Inj) 2.5 mg 1X ONCE 02/07/21 02:30 02/07/21 03:56 DC Heparin Sodium (Porcine) (Heparin Sodium) 5,000 unit Q8HRS 03/13/21 06:00 03/31/21 06:01 5,000 UNIT Hydralazine HCl (Apresoline Inj) 10 mg PRN Q4HRS PRN 02/11/21 12:15 03/31/21 07:49 10 MG Hydromorphone HCl (Dilaudid) 0.5 mg PRN Q10MIN PRN 03/27/21 06:00 03/28/21 05:59 DC Info (PHARMACY MONITORING -- do not chart) 1 each PRN DAILY PRN 03/30/21 13:00 Insulin Glargine (Lantus Syringe) 5 unit BID 03/06/21 09:00 03/31/21 07:51 5 UNIT Insulin Human Lispro (HumaLOG) 12 units Q6HRS 02/20/21 12:00 02/28/21 15:38 DC 02/27/21 05:41 12 UNITS Insulin Human Regular 100 ml @ 10 mls/hr 1X ONCE 02/07/21 06:30 02/07/21 16:54 DC 02/07/21 09:31 6.5 MLS/HR Insulin Human Regular 100 unit/ Sodium Chloride 101 ml @ 0 mls/hr CONT PRN PRN 02/07/21 06:00 02/07/21 16:54 DC Labetalol HCl (Normodyne Iv Push) 10 mg PRN Q2HR PRN 02/08/21 00:45 03/26/21 21:14 10 MG Lactobacillus Rhamnosus (Culturelle) 1 cap BID 02/16/21 21:00 02/17/21 10:45 DC 02/16/21 22:02 1 CAP Lidocaine HCl (Buffered Lidocaine 1%) 3 ml STK-MED ONCE 03/07/21 13:25 03/07/21 13:25 DC Linezolid (Zyvox) 600 mg BID 03/05/21 09:00 03/12/21 07:00 DC 03/11/21 20:33 600 MG Linezolid/Dextrose 300 ml @ 300 mls/hr Q12HR 03/16/21 10:00 03/18/21 07:37 DC 03/17/21 21:44 300 MLS/HR Lisinopril (Prinivil) 20 mg DAILY 02/17/21 09:00 03/09/21 10:43 DC 02/27/21 09:10 20 MG Lorazepam (Ativan Inj) 0.5 mg PRN Q6HRS PRN 02/08/21 10:00 02/16/21 22:07 0.5 MG Meropenem 1 gm/ Sodium Chloride 100 ml @ 200 mls/hr Q24H 03/18/21 17:00 03/30/21 17:52 200 MLS/HR Methylprednisolone Sodium Succinate (SOLU-Medrol 125MG VIAL) 80 mg Q8HRS 02/25/21 09:00 02/26/21 07:09 DC 02/26/21 05:52 80 MG Metoclopramide HCl (Reglan Vial) 10 mg PRN Q6HRS PRN 02/08/21 00:45 02/12/21 15:51 10 MG Micafungin Sodium 100 mg/Dextrose 100 ml @ 100 mls/hr Q24H 03/21/21 18:00 03/25/21 10:27 DC 03/24/21 16:36 100 MLS/HR Midazolam HCl 100 ml @ 0 mls/hr CONT PRN 02/17/21 10:00 03/20/21 17:18 5 MLS/HR Morphine Sulfate (Morphine Sulfate) 1 mg PRN Q10MIN PRN 03/27/21 06:00 03/28/21 05:59 DC Multi-Ingred Cream/Lotion/Oil/ Oint (Artificial Tears Eye Ointment) 1 reji PRN Q1HR PRN 03/17/21 17:30 03/20/21 15:55 1 REJI Multivitamins/ Minerals Therapeutic (Centrum Multivit-Mineral Liq) 5 ml DAILY 03/14/21 09:00 03/31/21 07:49 5 ML Naloxone HCl (Narcan) 0.4 mg PRN Q2MIN PRN 03/27/21 14:30 Neostigmine [place] (Neostigmine Methylsulfate) 5 mg STK-MED ONCE 03/27/21 14:06 03/27/21 14:07 DC Norepinephrine Bitartrate 8 mg/ Dextrose 258 ml @ 21.711 mls/ hr CONT PRN 03/06/21 13:45 03/19/21 18:45 23.3 MLS/HR Nystatin (Nystop) 1 reji BID 03/02/21 21:00 03/31/21 07:51 1 REJI Ondansetron HCl (Zofran Odt) 4 mg 1X ONCE 02/06/21 23:30 02/06/21 23:31 DC 02/06/21 23:57 4 MG Ondansetron HCl (Zofran) 4 mg 1X ONCE 02/07/21 20:00 02/07/21 20:07 DC 02/07/21 20:06 4 MG Phenylephrine HCl (PHENYLEPHRINE in 0.9% NACL PF) 1 mg STK-MED ONCE 03/27/21 13:46 03/27/21 13:46 DC Piperacillin Sod/ Tazobactam Sod (Zosyn Per Pharmacy) 1 each PRN DAILY PRN 02/23/21 07:45 03/17/21 10:04 DC Piperacillin Sod/ Tazobactam Sod 2.25 gm/Sodium Chloride 50 ml @ 100 mls/hr Q8HRS 03/07/21 14:00 03/17/21 08:03 DC 03/17/21 05:58 100 MLS/HR Piperacillin Sod/ Tazobactam Sod 3.375 gm/Sodium Chloride 50 ml @ 100 mls/hr Q6HRS 03/14/21 18:00 Cancel Piperacillin Sod/ Tazobactam Sod 4.5 gm/Sodium Chloride 100 ml @ 200 mls/hr Q6HRS 02/23/21 08:00 03/07/21 08:18 DC 03/07/21 06:12 200 MLS/HR Potassium Chloride/Water 100 ml @ 100 mls/hr PRN Q1HR PRN 02/07/21 06:00 02/07/21 16:54 DC Potassium Chloride (Klor-Con) 40 meq 1X ONCE 02/13/21 12:00 02/13/21 12:01 DC 02/13/21 13:21 40 MEQ Prochlorperazine Edisylate (Compazine) 5 mg PACU PRN PRN 03/27/21 06:00 03/28/21 05:59 DC Propofol (Diprivan) 200 mg STK-MED ONCE 03/27/21 12:02 03/27/21 12:03 DC Remdesivir 100 mg/ Sodium Chloride 230 ml @ 460 mls/hr Q24H 02/15/21 12:00 02/18/21 12:29 DC 02/18/21 11:52 460 MLS/HR Remdesivir 200 mg/ Sodium Chloride 210 ml @ 210 mls/hr 1X ONCE 02/11/21 13:00 02/12/21 11:55 DC 02/11/21 14:33 210 MLS/HR Ringer's Solution 1,000 ml @ 30 mls/hr Q24H 03/27/21 06:00 03/27/21 17:59 DC Rocuronium [place] (Zemuron) 50 mg STK-MED ONCE 03/27/21 13:16 03/27/21 13:17 DC Sennosides (Senna) 17.2 mg PRN BID PRN 02/07/21 08:45 02/22/21 08:29 17.2 MG Sevoflurane (Ultane) 60 ml STK-MED ONCE 03/27/21 14:19 03/27/21 14:20 DC Sodium Chloride 1,000 ml @ 25 mls/hr Q24H 03/27/21 14:30 03/29/21 14:07 DC 03/28/21 14:30 25 MLS/HR Sodium Chloride (Normal Saline Flush) 3 ml QSHIFT PRN 03/27/21 14:30 Succinylcholine Chloride (Anectine) 200 mg STK-MED ONCE 02/17/21 10:00 02/25/21 08:40 DC Vancomycin HCl (Vanco Per Pharmacy) 1 each PRN DAILY PRN 03/04/21 18:30 03/05/21 08:59 DC 03/04/21 19:47 1 EACH Vancomycin HCl (Vancomycin Trough Level) 1 each 1X ONCE 03/06/21 07:00 03/06/21 07:01 Cancel Vancomycin HCl 1.5 gm/Sodium Chloride 500 ml @ 250 mls/hr Q12H 03/05/21 07:30 03/05/21 08:58 DC Vancomycin HCl 1 gm/Sodium Chloride 250 ml @ 250 mls/hr Q12H 03/04/21 20:00 UNV Vancomycin HCl 2 gm/Sodium Chloride 500 ml @ 250 mls/hr 1X ONCE 03/04/21 19:00 03/04/21 20:59 DC 03/04/21 19:26 250 MLS/HR Vecuronium [place] (Norcuron Bolus) 6 mg PRN Q2HRS PRN 03/06/21 14:30 03/16/21 10:16 5 MG Vitamin A/Vitamin D (Vitamin A & D Ointment) 1 reji PRN Q1HR PRN 03/10/21 01:45 03/20/21 09:34 1 REJI Lab Laboratory Tests Test 03/30/21 11:40 03/30/21 17:51 03/31/21 00:18 03/31/21 05:15 Glucose (Fingerstick) 101 mg/dL (70-99) 102 mg/dL (70-99) 150 mg/dL (70-99) 169 mg/dL (70-99) White Blood Count 10.8 x10^3/uL (4.0-11.0) Red Blood Count 3.01 x10^6/uL (3.50-5.40) Hemoglobin 9.1 g/dL (12.0-15.5) Hematocrit 26.6 % (36.0-47.0) Mean Corpuscular Volume 88 fL (79-100) Mean Corpuscular Hemoglobin 30 pg (25-35) Mean Corpuscular Hemoglobin Concent 34 g/dL (31-37) Red Cell Distribution Width 14.5 % (11.5-14.5) Platelet Count 260 x10^3/uL (140-400) Neutrophils (%) (Auto) 66 % (31-73) Lymphocytes (%) (Auto) 11 % (24-48) Monocytes (%) (Auto) 5 % (0-9) Eosinophils (%) (Auto) 17 % (0-3) Basophils (%) (Auto) 1 % (0-3) Neutrophils # (Auto) 7.1 x10^3/uL (1.8-7.7) Lymphocytes # (Auto) 1.2 x10^3/uL (1.0-4.8) Monocytes # (Auto) 0.6 x10^3/uL (0.0-1.1) Eosinophils # (Auto) 1.8 x10^3/uL (0.0-0.7) Basophils # (Auto) 0.1 x10^3/uL (0.0-0.2) Sodium Level 135 mmol/L (136-145) Potassium Level 4.1 mmol/L (3.5-5.1) Chloride Level 97 mmol/L (98-107) Carbon Dioxide Level 27 mmol/L (21-32) Anion Gap 11 (6-14) Blood Urea Nitrogen 26 mg/dL (7-20) Creatinine 4.1 mg/dL (0.6-1.0) Estimated GFR (Cockcroft-Gault) 11.8 Glucose Level 194 mg/dL (70-99) Calcium Level 8.7 mg/dL (8.5-10.1) Test 03/31/21 07:50 Troponin I Quantitative < 0.017 ng/mL (0.000-0.055) Results All relevant outside records, renal labs, imaging studies, telemetry/EKG's were reviewed. Justicifation of Admission Dx: Justifications for Admission: Justification of Admission Dx: N/A GIGI CARMEN MD Mar 31, 2021 10:10
--- NOTE | 2021-03-31 10:14 | PDOC ---
Infectious Disease Note Subjective: Subjective Pt intubated/sedated Blood pressure medications are adjusted Vital Signs: Vital Signs Vital Signs Date Time Temp Pulse Resp B/P (MAP) Pulse Ox O2 Delivery O2 Flow Rate FiO2 03/31/21 10:00 105 22 153/68 (96) 99 Ventilator 03/31/21 08:00 98.4 98.4 Physical Exam: PHYSICAL EXAM GENERAL: Intubated HEENT: Normocephalic, atraumatic. Anicteric. Slight bilateral periorbital edema. Neck right IJ HDC clean Trach + LUNGS: Rhonchi. HEART: S1, S2. No murmurs. ABDOMEN: Obese, soft. Bowel sounds present. Nontender, nondistended. Abdominal and pubis mons edema noted. PEG tube in place GENITOURINARY: Kern and fecal tube in place. EXTREMITIES: Edema present no cyanosis. CENTRAL NERVOUS SYSTEM: Intubated. PSYCHIATRIC: Unable to assess. Derm has pressure wounds wound pictures noted in chart. Generalized rash, PICC line , right IJ HDC clean Medications: Inpatient Meds: Medications reviewed. Labs: Lab Laboratory Tests Test 03/30/21 11:40 03/30/21 17:51 03/31/21 00:18 03/31/21 05:15 Glucose (Fingerstick) 101 mg/dL (70-99) 102 mg/dL (70-99) 150 mg/dL (70-99) 169 mg/dL (70-99) White Blood Count 10.8 x10^3/uL (4.0-11.0) Red Blood Count 3.01 x10^6/uL (3.50-5.40) Hemoglobin 9.1 g/dL (12.0-15.5) Hematocrit 26.6 % (36.0-47.0) Mean Corpuscular Volume 88 fL (79-100) Mean Corpuscular Hemoglobin 30 pg (25-35) Mean Corpuscular Hemoglobin Concent 34 g/dL (31-37) Red Cell Distribution Width 14.5 % (11.5-14.5) Platelet Count 260 x10^3/uL (140-400) Neutrophils (%) (Auto) 66 % (31-73) Lymphocytes (%) (Auto) 11 % (24-48) Monocytes (%) (Auto) 5 % (0-9) Eosinophils (%) (Auto) 17 % (0-3) Basophils (%) (Auto) 1 % (0-3) Neutrophils # (Auto) 7.1 x10^3/uL (1.8-7.7) Lymphocytes # (Auto) 1.2 x10^3/uL (1.0-4.8) Monocytes # (Auto) 0.6 x10^3/uL (0.0-1.1) Eosinophils # (Auto) 1.8 x10^3/uL (0.0-0.7) Basophils # (Auto) 0.1 x10^3/uL (0.0-0.2) Sodium Level 135 mmol/L (136-145) Potassium Level 4.1 mmol/L (3.5-5.1) Chloride Level 97 mmol/L (98-107) Carbon Dioxide Level 27 mmol/L (21-32) Anion Gap 11 (6-14) Blood Urea Nitrogen 26 mg/dL (7-20) Creatinine 4.1 mg/dL (0.6-1.0) Estimated GFR (Cockcroft-Gault) 11.8 Glucose Level 194 mg/dL (70-99) Calcium Level 8.7 mg/dL (8.5-10.1) Test 03/31/21 07:50 Troponin I Quantitative < 0.017 ng/mL (0.000-0.055) Micro GRAM STAIN EVALUATION Final Final This specimen is of good quality and is acceptable for routine bacterial culture. Culture results to follow. NO ORGANISMS SEEN. SQUAMOUS EPI CELL:RARE PMN (WBCs):MODERATE Unless otherwise specified, Testing Performed by: [address] [id number] For Inquires, the Physician may contact the Microbiology department at [phone] RESPIRATORY CULTURE Final Final MODERATE GRAM NEGATIVE RODS on 03/18/21 at 1120 FINAL ID= [ACINETOBACTER [id number].] ACINETOBACTER URSINGII. ANTIMICROBIAL SUSCEPTIBILITY Final Comment NEG SAGE 56 ACINETOBACTER URSINGII. ANTIBIOTIC RESULT INTERPRETATION AMPICILLIN/SULBACTAM <=4/2 S AMIKACIN <=16 S CEFTRIAXONE 2 S CEFTAZIDIME 16 I CEFOTAXIME 16 I CIPROFLOXACIN <=0.25 S CEFEPIME 4 S GENTAMICIN <=2 S LEVOFLOXACIN <=0.5 S RUN DATE: 03/19/21 [facility] *LIVE* PAGE 2 RUN TIME: 1120 Specimen Inquiry SPEC: [id number] PATIENT: ARIADNA BANKS [id number] ( Continued) Procedure Result CONTINUED ON NEXT PAGE RUN DATE: 03/19/21 [facility] *LIVE* PAGE 3 RUN TIME: 1120 Specimen Inquiry SPEC: [id number] PATIENT: ARIADNA BANKS [id number] (Continued) Procedure Result ANTIMICROBIAL SUSCEPTIBILITY Final (continued) MINOCYCLINE <=4 S MEROPENEM <=1 S TRIMETHOPRIM/SULFAMETHOXAZOLE <=0.5/9.5 S TOBRAMYCIN <=2 S Unless otherwise specified, Testing Performed by: [address] [id number] For Inquires, the Physician may contact the Microbiology department at [phone] Culture negative Objective: Assessment: 1. Febrile illness. Improved 2. COVID-19 infection present on date of admission, 02/06/2021. Status post remdesivir, dexamethasone. 3. Acute hypoxic respiratory failure, status post intubation. S/P Trach on 03/17 Trach cultures positive for Rock albicans and now acinebacter ursungi 4. Diabetes. 5. Diarrhea. 6. Hypertension. 7. Hyperlipidemia. 8. Anemia. 9. BOB on HD 10.UC rock albican, ua neg Plan: Plan of Care Cont Meropenem Follow-up lab ,cultures, C. diff PCR negative Follow Kern maintenance protocol Wound care per wound treatment Offload Continue supportive care. Prognosis poor D/W KAITLYNN CURIEL MD Mar 31, 2021 10:14
--- NOTE | 2021-03-31 11:35 | NUR ---
SS following up with discharge planning. SS reviewed pt chart and discussed with pt RN. Pt is currently on the vent at 40%. COVID19 recovered. G tube and trach in place. Pt on IV Meropenem. Pt on Sub Q Heparin, Fentanyl, Precedex, and Propofol. Pt failed breathing trial today. Self pay. Med Assist following and currently awaiting pt's spouse to produce two more needed documents for Medicaid and Disability application. Pt needing LTACH but has no benefits at this time. SS will continue to follow for discharge planning.
[2021-03-31 11:36] LABS: FIO2 ABG 40
--- NOTE | 2021-03-31 11:38 | PDOC ---
[employer] PROGRESS NOTE Date of Service DOS: DATE: 03/31/21 TIME: 11:36 Chief Complaint Chief Complaint CC: Covid-19 DKA Hypotension Nausea Vomiting Combined metabolic and respiratory acidosis Acute electrolyte derangementhyponatremia, hypochloremia due to volume depletion Hyperglycemia BOB due to ATN, requiring dialysis Erythrocytosis Candiduria Sacral decubitus ulcer S/P Trach on (03/17/21) Trach cultures positive for [place] albicans and now acinebacter ursungi History of Present Illness History of Present Illness Ms Borges is a 46 year old female who presented with nausea/vomiting since 7 AM 02/06/2021 in the morning. Patient stated that her recently tested positive for Covid. She states that he "coughed in my face because he thought it was funny." She reports subjective fevers and chills and nausea/vomiting. Denies sore throat, cough, shortness of breath. No chest pain. Does have some upper abdominal discomfort after vomiting, that she attributes to muscular strain. She was not vaccinated for Covid. 02/08: No acute events overnight. Patient seen and examined bedside and resting comfortably. Continues to complain of nausea not able to tolerate any diet at this time. Saturating 98% on room air. Patient's chart, labs, images were reviewed and discussed with RN 02/09: Afebrile, currently breathing on room air. Still with complaints of nausea and vomiting x3 today. States that she has history of similar symptoms that have been mildly improved with IV Dilaudid. 02/10: Patient febrile today with T-max 102.2 F. She still admits to nausea, denies any further vomiting. We will continue to provide supportive care and monitor for any recurrent fevers overnight. Patient continues to improve may discharge tomorrow to continue self-isolation. 02/11: Febrile overnight, T-max 102.3 F. She did become hypoxic overnight, currently breathing on 4 L nasal cannula. Also admits to associated vomiting or diarrhea overnight. Discussed with RN, will initiate remdesivir and closely monitor LFTs. IV Decadron, and prophylactic antibiotics. 02/12: Low-grade fever overnight, T-max 99.7. Currently breathing on room air. Will discontinue remdesivir, steroids, and antibiotics; will observe overnight. Still with complaints of vomiting x1 and diarrhea. We will continue to provide supportive care and hope to discharge in the next day or so. 02/13: Afebrile. Still complains of intermittent diarrhea. At the time of my evaluation she was breathing on 6 L nasal cannula; this is somewhat misleading as patient states that she did not feel short of breath but was placed on 6 L by nursing staff overnight. 02/14: Afebrile, currently breathing on 8 L nasal cannula. There has been some misleading documentation, chart oxygen this patient is requiring. Discussed with RN, will resume remdesivir to complete total of 5 days. Continue to monitor LFTs. Will add steroids, Rocephin, and azithromycin. 02/15: Afebrile. Became much more hypoxic overnight, requiring BiPAP. At the time of my evaluation she is still breathing on BiPAP. Consultation was placed to pulmonology. Had discussion with Dr. Myrick about initiating Tocilizumab 02/16: No acute events overnight. Patient becoming more hypoxic saturating 94% and requiring BiPAP. Patient will be transferred to the ICU at this time. For worsening clinical status. Discussed with pulmonary. Patient's chart, labs, images were reviewed and discussed with RN 02/17: Transferred to ICU yesterday afternoon. Seen and examined at bedside she remains on 100% FiO2 on BiPAP. Respirations do appear somewhat labored. Suspec t intubation may be impending. We will closely monitor. Increase lisinopril to 20 today. 02/18: Patient required intubation yesterday afternoon. Saw and examined this morning. She is intubated and sedated. Increase insulin today. Covid protocol ordered. Wean as tolerated. Plan of care discussed with bedside nurse. 02/19: Bedside. She remains intubated and sedated. Continue Covid protocol. Wean oxygen sedation as tolerated. Pulmonary following. Plan of care discussed with bedside RN. 02/20: Patient seen and examined at bedside. She remains intubated and sedated. No major clinical changes. Continue current treatment. Pulmonary following. Plan of care discussed with bedside RN. 02/21: Patient seen and examined at bedside. Remains intubated and sedated date and admission clinical changes. Increase free water flushes today due to hypernatremia. Plan of care discussed with bedside nurse. 02/22: Patient seen and examined at bedside. O2 requirement actually improving, although remains intubated. Possible SBT in the coming days. Hypernatremia improving. Plan of care discussed bedside RN. 02/23: Patient remains in ICU on ventilator with FiO2 100%, PEEP 7. Repeat chest x-ray yesterday showed diffuse bilateral pulmonary opacities with no interval improvement. Will discontinue Rocephin and initiate Zosyn. We will continue IV steroids for a full 10-day course 02/24: Afebrile. On vent with FiO2 40%, PEEP 6. Her Coreg has been held due to persistent bradycardia. No documented history of systolic heart failure or previous echocardiogram. Will need to obtain echocardiogram prior to discharge. Continue IV steroids and antibiotics. 02/25: Afebrile. Remains ventilated with FiO2 45%, PEEP 6. Chest x-ray today showed slight improvement of the pulmonary infiltrates, no pneumothorax. Completed 10-day course of IV Decadron. Will initiate slow Solu-Medrol taper. Continue IV Zosyn. Continue supportive care. 02/26: Afebrile. On vent with FiO2 45%, PEEP 6. Completed 10 days of IV Decadron. Will continue IV Zosyn. Continue supportive care. Critical care time 30 minutes spent reviewing charts, reviewing imaging, reviewing labs, discussion with RN. 02/27: Afebrile. On vent with FiO2 45%, PEEP 6. Completed 10 days of steroids and completed remdesivir. Continue with IV Zosyn. CPAP trial yesterday. Continue NG tube and supportive care. 02/28:. Patient remains on vent with FiO2 40%, PEEP 5. Afebrile. Completed steroids and remdesivir. Some noted hypoglycemia overnight, will de-escalate basal insulin. Continue IV Zosyn. Ventilator management per pulmonology. Continue NG tube and supportive care. 03/01: On vent with FiO2 40%, PEEP 5. Afebrile. Completed steroids and remdesivir. Blood glucose well controlled. Continue empiric antibiotics with Zosyn. Ventilator management per pulmonology. Continue NG tube and supportive care. 03/02: No acute events overnight. Patient hypotensive the morning due to oversedation. Will wean off sedation and keep antihypertensive medications on board. Currently saturating 100% on vent settings of 18/450/40/5. Will attempt spontaneous breathing trial today to see how patient does. 03/03: No acute events overnight. Patient saturating 98% on vent settings of 18/450/40/5. Will defer spontaneous breathing trials to pulmonary at this time. Patient's chart, labs, images were reviewed and discussed with RN 8: No acute events overnight. Patient saturating 9 9% on vent settings of 18/450/30/5. Patient currently is unable to tolerate weaning. Per pulmonary. Patient's chart, labs, images were reviewed and discussed with RN 03/05: No acute events overnight. Patient is saturating 97% on vent settings of 18/450/55/5. Her FiO2 needs to be increased due to abnormal ABG with 7.3 //24. Patient's chart, labs, images were reviewed and discussed with RN 8: No acute events overnight. Patient saturating 94% on vent settings of 18/450/55/5. Chest x-ray showing increase in pulmonary infiltrates. Wound care is consulted for decubitus ulcer patient's chart, labs, images were reviewed and discussed with RN 03/07: No acute events overnight. Patient saturating 94% on vent settings of 20/450/70/8. Patient now heading into renal failure with her creatinine bumped up from 1.5-4.2. Decreased urine output. Plan for hemodialysis today and temporary catheter placement and nephrology is consulted. 03/08: No acute events overnight. Patient did have a nausea vomiting episode and tube feeds were held. KUB repeat shows NG tube still in the stomach. Will resume tube feeds at trickle and advance to goal today. Will start hemodialysis soon. 03/09: Seen on vent 20/450/60%/8. ABG 7.2 WBC 11.4, Hb 7.4, platelets 188, NA 131, K4.9, BUN 48, CR 51, glucose 199, phosphorus 7.9, mag 2.2, AST 265 ALT 219, albumin 1.1. Chest radiograph appears unchanged from prior. Dialysis x1 today 03/10: Afebrile. Seen on vent, 20/450/60/7 with ABG 7.3 . Tolerated dialysis well on 03/09. LFTs similar. 03/11: Afebrile. Seen on vent, sedated. Still requiring Levophed for BP support. WBC 16.7, Hb 8.1, NA 130, ABG 7.3 on 55% FiO2 PEEP 6. On Zosyn and Zyvox Diflucan. Dialysis today 03/12: Afebrile. Still requiring Levophed for BP support sedated with Versed febrile Precedex. WBC 16.1, Hb 8.5, platelets 185, NA 133. Trach plan tentatively 03/17. O2 saturations 93% on 50% FiO2 PEEP 6. ABG 7. On Zosyn and Zyvox Diflucan. 03/13: Afebrile. Still on Levophed for BP support lightly sedated. 7. on 45% FiO2. Plan for dialysis today. On Zosyn and Zyvox Diflucan. More swollen today. 03/14: Afebrile. Weaning down off Levophed. WBC 14.9 NA 132. O2 saturations 92% on 45% FiO2 PEEP 5. Afebrile. O2 saturations 91% on FiO2 45% PEEP 6. Continued on Zosyn and Zyvox Diflucan. Tentative trach planned 03/17/2021 CC time 31 minutes 03/16/21: Patient seen and examined in ICU. Periorbital as well as upper and lower extremity edema noted. OG feed running at 30cc/hr. Still on vent on pressure control with a rate of 24 with 45% FiO2. Patient has rectal bag. Currently she has 98% O2 sat. Currently sedated with Dexmedetomidine, Propofol, Versed, and Fentanyl. Discussed with RN. Chart reviewed. 03/17/21: Patient was seen and examined in the ICU today. Periorbital edema as well as abdominal and mons pubis edema was noted. Patient still on vent on pressure control with Fi02 of 45% plus 6 PEEP. Patient had rectal bag. Currently sedated on Dexmedetomidine, Propofol, Versed, and Fentanyl. Discussed with RN. Chart reviewed. 03/18/21: Patient seen and examined in ICU. On vent via trach that was placed yesterday. Vent settings are Pressure Control of 40 with FiO2 of 45% and 6 PEEP. Trach clean and dry. Orbital swelling still present. Pupils are sluggish. Patient on TPN running at 30cc/hr. Kern to bedside and rectal bag in place. Current O2 sat at 94%. Sedated on Dexmedetomidine, Propofol, Versed, and Fentanyl. Discussed with RN. Chart reviewed. 03/19/21: Patient was seen and examined in the ICU today. Currently on vent via trach on pressure control of 42, rate of 24, FiO2 of 45%, and 6 PEEP. O2 sat is at 97% while patient is being examined. Trach is clean and dry. PICC line is in place on right arm. Periorbital swelling has decreased slightly since examined yesterday. Patient is sedated on Dexmedetomidine, Propofol, Versed, and Fentanyl. Discussed with RN. Chart reviewed. 03/20/21: Patient seen and examined in the ICU. Periorbital edema is slightly decreased since yesterday. O2 sat while being examined was 93%. NG tube in place and running at 30cc/hr. Patient on vent via trach on pressure control of 40 with FiO2 of 45 and rate of 24. Sedated on Dexmedetomidine, Propofol, Versed, and Fentanyl. PICC line in place. Kern to bedside. Rectal bag present. Discussed with RN. Chart reviewed. 03/21/21: Patient was seen and examined in the ICU today. She was semi-sedated.. She was on Dexmedetomidine and Fentanyl. We are holding the Propofol. Her eyes were periodically open but she was not making meaningful eye contact or tracking. On vent via trach with pressure control of 40 and FiO2 at 45. Rate was 24. PEEP was 5. Trach was clean and dry. While being examined, her O2 sat was 94%. Rectal bag and Kern to bedside in place. NG tube in place and feeding at 30cc/hr. IV fluids still running. Levophed has been stopped. Discussed with RN. Chart reviewed. 03/22/21: Patient was seen and examined in the ICU. She was semi-sedated on Propofol and Dexmedetomidine. Her eyes were open but she did not make meaningful eye contact. Her blood pressure was elevated (198/102) while being examined and she had just been given hydralazine to lower it. There are plans to place a PEG tube tomorrow. Currently on vent via trach on pressure control of 40 with FiO2 of 45%, 5 PEEP, and a rate of 24. Current O2 sat is 98%. She is feeding through an NG tube at 30cc/hr. Rectal bag and Kern to bedside present. SCDs on patient for DVT prophylaxis. She did not do her daily dialysis today but the plan is to start back on that tomorrow. Discussed with RN. Chart reviewed. 03/23/2021: Patient remains in ICU on ventilator. FiO2 40%, PEEP 5. Trach cultures positive for [place] albicans and acinebacter ursungi. We will continue treatment with IV antibiotics and micafungin, per ID. HD per nephrology. Plans for PEG tube placement today. 30 minutes critical care time was spent reviewing charts, reviewing labs, reviewing imaging, discussion with RN. 03/24/2021: Afebrile. On vent with FiO2 45%, PEEP 5. Had attempted PEG placement per GI yesterday, but unable to locate safe path for PEG; will consider surgical opinion. Once PEG is in place she should be stable for LTAC transfer when accepted. Continue antibiotics, per ID. 30 minutes critical care time was spent reviewing charts, reviewing labs, reviewing imaging, discussion with RN. 03/25/2021: Febrile overnight with T-max 101.5 F. On vent with FiO2 45%, PEEP 5. Surgery has been consulted with tentative plans for laparoscopic versus open gastrostomy placement tomorrow. Trach cultures positive for [place] albicans and now acinebacter ursungi; will continue antibiotic management, per ID. Hemodialysis, per nephrology. Patient needing LTAC placement, but currently without benefits. dry kiln worker following for discharge planning. Critical care time 30 minutes spent reviewing charts, reviewing labs, reviewing imaging, discussion with RN. 03/26/2021: Febrile today with T-max 100.5 F. Awake on vent with FiO2 45%, PEEP 5. When I ask if she remembers any she nods. G-tube placement scheduled for tomorrow, per general surgery. Chest x-ray today showed slight interval increase in diffuse infiltrate. Continue antibiotic management, per ID. Hemodialysis per nephrology. Reportedly did not tolerate CPAP trial this morning. dry kiln worker following for LTAC placement. Critical care time 30 minutes spent reviewing charts, reviewing labs, reviewing imaging, discussion with RN. 03/27/2021: On vent with FiO2 45%, PEEP 5. Afebrile today. Continue treatment of acute renal failure requiring HD, per nephrology. Monitor kidney function for recovery. G-tube placement scheduled for today, per general surgery. Likely LTAC placement soon, but this is been a difficult as she is self-pay without benefits; vp digital marketing social media and crm following. Critical care time 30 minutes spent reviewing charts, reviewing labs, reviewing imaging, discussion with RN. 03/28/2021: Afebrile. On vent with FiO2 40%, PEEP 5. Had laparoscopic gastrostomy tube placed yesterday, per general surgery. Continue treatment of acute renal failure requiring HD, per nephrology. Continue IV antibiotics, per ID. Likely LTAC placement soon, but this is been a difficult as she is self-pay without benefits; vp [employer] social media and crm following. Critical care time 30 minutes spent reviewing charts, reviewing labs, reviewing imaging, discussion with RN. 03/29/2021: Afebrile. On vent with FiO2 45%, PEEP 5. S/P laparoscopic gastrostomy tube; tube feeds running. HD, per nephrology. Continue meropenem, per ID. Anticipate LTAC placement soon now that PEG has being placed; vp digital marketing social media and crm helping in these regards. Critical care time 30 minutes spent reviewing charts, reviewing labs, reviewing imaging, discussion with RN. 03/30 No major events or clinical changes overnight. Patient evaluated at bedside this morning on trach and G-tube. Tolerating these well. Has been working on insurance for patient for placement as she will need long-term care. Guarded prognosis. Plan of care discussed with bedside nurse. 03/31 No major clinical changes. Remains trached. Sedated. Continue current plan. Vitals/I&O Vitals/I&O: Vital Signs Date Time Temp Pulse Resp B/P (MAP) Pulse Ox O2 Delivery O2 Flow Rate FiO2 03/31/21 10:00 105 22 153/68 (96) 99 Ventilator 03/31/21 08:00 98.4 98.4 I & O 03/30/21 03/30/21 03/31/21 15:00 23:00 07:00 Intake Total 0 ml 960 ml 1110 ml Output Total 855 ml 535 ml Balance 0 ml 105 ml 575 ml Physical Exam Physical Exam: GENERAL: Intubated HEENT: Normocephalic, atraumatic. Anicteric. Slight bilateral periorbital edema. Neck right IJ HDC clean Trach + LUNGS: Rhonchi. HEART: S1, S2. No murmurs. ABDOMEN: Obese, soft. Bowel sounds present. Nontender, nondistended. Abdominal and pubis mons edema noted. PEG tube in place GENITOURINARY: Kern and fecal tube in place. EXTREMITIES: Edema present no cyanosis. CENTRAL NERVOUS SYSTEM: Intubated. PSYCHIATRIC: Unable to assess. Derm has pressure wounds wound pictures noted in chart. Generalized rash, PICC line , right IJ HDC clean General: No acute distress, Other (sedated) Heart: Regular rate, Normal S1, Normal S2 Lungs: Clear Abdomen: Soft, Other (G-tube in place) Extremities: Other (ANASARCA) Skin: No rashes, No significant lesion Labs Labs: Laboratory Tests Test 03/30/21 11:40 03/30/21 17:51 03/31/21 00:18 03/31/21 05:15 Glucose (Fingerstick) 101 mg/dL (70-99) 102 mg/dL (70-99) 150 mg/dL (70-99) 169 mg/dL (70-99) White Blood Count 10.8 x10^3/uL (4.0-11.0) Red Blood Count 3.01 x10^6/uL (3.50-5.40) Hemoglobin 9.1 g/dL (12.0-15.5) Hematocrit 26.6 % (36.0-47.0) Mean Corpuscular Volume 88 fL (79-100) Mean Corpuscular Hemoglobin 30 pg (25-35) Mean Corpuscular Hemoglobin Concent 34 g/dL (31-37) Red Cell Distribution Width 14.5 % (11.5-14.5) Platelet Count 260 x10^3/uL (140-400) Neutrophils (%) (Auto) 66 % (31-73) Lymphocytes (%) (Auto) 11 % (24-48) Monocytes (%) (Auto) 5 % (0-9) Eosinophils (%) (Auto) 17 % (0-3) Basophils (%) (Auto) 1 % (0-3) Neutrophils # (Auto) 7.1 x10^3/uL (1.8-7.7) Lymphocytes # (Auto) 1.2 x10^3/uL (1.0-4.8) Monocytes # (Auto) 0.6 x10^3/uL (0.0-1.1) Eosinophils # (Auto) 1.8 x10^3/uL (0.0-0.7) Basophils # (Auto) 0.1 x10^3/uL (0.0-0.2) Sodium Level 135 mmol/L (136-145) Potassium Level 4.1 mmol/L (3.5-5.1) Chloride Level 97 mmol/L (98-107) Carbon Dioxide Level 27 mmol/L (21-32) Anion Gap 11 (6-14) Blood Urea Nitrogen 26 mg/dL (7-20) Creatinine 4.1 mg/dL (0.6-1.0) Estimated GFR (Cockcroft-Gault) 11.8 Glucose Level 194 mg/dL (70-99) Calcium Level 8.7 mg/dL (8.5-10.1) Test 03/31/21 07:50 03/31/21 11:33 Troponin I Quantitative < 0.017 ng/mL (0.000-0.055) Glucose (Fingerstick) 155 mg/dL (70-99) Assessment and Plan Assessmemt and Plan Problems Medical Problems: (1) Ketoacidosis Status: Acute Comment Review of Relevant I have reviewed the following items mazin (where applicable) has been applied. Medications: Current Medications Medications (Trade) Dose Ordered Sig/Pepe Route PRN Reason Start Time Stop Time Status Last Admin Dose Admin Albumin Human 100 ml @ 100 mls/hr 1X ONCE IV 03/30/21 15:45 03/30/21 16:44 DC 03/30/21 15:44 Amlodipine Besylate (Norvasc) 10 mg DAILY PO 03/31/21 09:00 03/31/21 08:41 Justifications for Admission Other Justification LEO DELGADO MD Mar 31, 2021 11:38
--- NOTE | 2021-03-31 13:59 | EKG ---
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
[2021-03-31] MEDS: MEROPENEM 1 GM in IV NORMAL SALINE 100ML 100 ML IV SCH (17:18)
[2021-03-31] MEDS: ATORVASTATIN CALCIUM 40 MG TABLET. PO SCH (21:14)
[2021-04-01] VITALS (24 sets, daily range): BP systolic 85–198; BP diastolic 50–112
[2021-04-01] MEDS: INSULIN LISPRO 300 UNITS/3 ML VIAL. SQ SCH ×4 (00:32→19:18)
[2021-04-01] MEDS: hydrALAZINE 20 MG/ML VIAL. IVP PRN (00:50)
[2021-04-01] MEDS: DEXMEDETOMIDINE 400 MCG in IV NORMAL SALINE 100ML 96 ML IV PRN ×6 (01:37→23:48)
[2021-04-01] MEDS: PROPOFOL 100 ML IV PRN ×7 (02:35→23:49)
[2021-04-01] MEDS: HEPARIN for SUB-Q USE 5,000 UNIT/ML VIAL. SQ SCH ×3 (06:18→22:10)
--- NOTE | 2021-04-01 06:29 | NUR ---
Dressing changed on PEG site and lap sites. Appears to be healing. No redness or drainage noted.
[2021-04-01 08:26] LABS: BASO # 0.2 x10^3/uL (0.0-0.2); BASO % 2 % (0-3); EOS # 2.1 x10^3/uL (0.0-0.7); EOS % 25 % (0-3); HEMATOCRIT 27.9 % (36.0-47.0); HEMOGLOBIN 9.4 g/dL (12.0-15.5); LYMPH # 1.4 x10^3/uL (1.0-4.8); LYMPH % 17 % (24-48); MEAN CORPUSCULAR HEMOGLOBIN 30 pg (25-35); MEAN CORPUSCULAR HGB CONC 34 g/dL (31-37); MEAN CORPUSCULAR VOLUME 88 fL (79-100); MONO # 0.8 x10^3/uL (0.0-1.1); MONO % 9 % (0-9); NEUT # 3.8 x10^3/uL (1.8-7.7); NEUT % 46 % (31-73); PLATELET COUNT 294 x10^3/uL (140-400); RED BLOOD COUNT 3.17 x10^6/uL (3.50-5.40); WHITE BLOOD COUNT 8.4 x10^3/uL (4.0-11.0)
[2021-04-01 08:30] LABS: BASE EXCESS ABG -1 mmol/L (-3-3); HCO3 ABG 23 mmol/L (21-28); PCO2 ABG 35 mmHg (35-46); PO2 ABG 131 mmHg (75-108); SAT O2 ABG 98 % (92-99)
[2021-04-01 08:31] LABS: CALCIUM 9.1 mg/dL (8.5-10.1); CREATININE 4.8 mg/dL (0.6-1.0); GFR 9.8; POTASSIUM 3.9 mmol/L (3.5-5.1)
[2021-04-01] MEDS: FAMOTIDINE 20 MG/2 ML VIAL IVP SCH (09:03)
[2021-04-01] MEDS: MULTIVITAMINS,THERAPEUTIC 5 ML ORAL LIQUID. PEG SCH (09:03)
[2021-04-01] MEDS: DOCUSATE 100 MG/10 ML SOLUTION. PO SCH ×2 (09:03→20:49)
[2021-04-01] MEDS: NYSTATIN TOPICAL POWDER 15GM BOTTLE. TP SCH ×2 (09:05→20:53)
[2021-04-01] MEDS: INSULIN GLARGINE SYRINGE. SQ SCH ×2 (09:05→20:50)
--- NOTE | 2021-04-01 09:15 | PDOC ---
PULMONARY PROGRESS NOTES DATE: 04/01/21 TIME: 09:15 Subjective Patient at times gets agitated off sedation No overnight events Did not tolerate pressure support well yesterday patient sedated, currently 40% FiO2 5 of PEEP Vitals Vital Signs Date Time Temp Pulse Resp B/P (MAP) Pulse Ox O2 Delivery O2 Flow Rate FiO2 04/01/21 09:04 62 130/71 04/01/21 08:10 100 Ventilator 04/01/21 06:00 18 04/01/21 04:00 97.9 97.9 Lungs: Clear Cardiovascular: S1 Abdomen: Soft, Non-tender Skin: Warm Labs Laboratory Tests Test 03/30/21 11:40 03/30/21 17:51 03/31/21 00:18 03/31/21 05:15 Glucose (Fingerstick) 101 mg/dL (70-99) 102 mg/dL (70-99) 150 mg/dL (70-99) 169 mg/dL (70-99) White Blood Count 10.8 x10^3/uL (4.0-11.0) Red Blood Count 3.01 x10^6/uL (3.50-5.40) Hemoglobin 9.1 g/dL (12.0-15.5) Hematocrit 26.6 % (36.0-47.0) Mean Corpuscular Volume 88 fL (79-100) Mean Corpuscular Hemoglobin 30 pg (25-35) Mean Corpuscular Hemoglobin Concent 34 g/dL (31-37) Red Cell Distribution Width 14.5 % (11.5-14.5) Platelet Count 260 x10^3/uL (140-400) Neutrophils (%) (Auto) 66 % (31-73) Lymphocytes (%) (Auto) 11 % (24-48) Monocytes (%) (Auto) 5 % (0-9) Eosinophils (%) (Auto) 17 % (0-3) Basophils (%) (Auto) 1 % (0-3) Neutrophils # (Auto) 7.1 x10^3/uL (1.8-7.7) Lymphocytes # (Auto) 1.2 x10^3/uL (1.0-4.8) Monocytes # (Auto) 0.6 x10^3/uL (0.0-1.1) Eosinophils # (Auto) 1.8 x10^3/uL (0.0-0.7) Basophils # (Auto) 0.1 x10^3/uL (0.0-0.2) Sodium Level 135 mmol/L (136-145) Potassium Level 4.1 mmol/L (3.5-5.1) Chloride Level 97 mmol/L (98-107) Carbon Dioxide Level 27 mmol/L (21-32) Anion Gap 11 (6-14) Blood Urea Nitrogen 26 mg/dL (7-20) Creatinine 4.1 mg/dL (0.6-1.0) Estimated GFR (Cockcroft-Gault) 11.8 Glucose Level 194 mg/dL (70-99) Calcium Level 8.7 mg/dL (8.5-10.1) Test 03/31/21 07:50 03/31/21 09:00 03/31/21 11:33 03/31/21 17:16 Troponin I Quantitative < 0.017 ng/mL (0.000-0.055) O2 Saturation 98 % (92-99) Arterial Blood pH 7.46 (7.35-7.45) Arterial Blood pCO2 at Patient Temp 35 mmHg (35-46) Arterial Blood pO2 at Patient Temp 106 mmHg (75-108) Arterial Blood HCO3 24 mmol/L (21-28) Arterial Blood Base Excess 0 mmol/L (-3-3) FiO2 40 Glucose (Fingerstick) 155 mg/dL (70-99) 104 mg/dL (70-99) Test 03/31/21 21:17 04/01/21 00:28 04/01/21 06:09 04/01/21 07:00 Glucose (Fingerstick) 138 mg/dL (70-99) 157 mg/dL (70-99) 133 mg/dL (70-99) White Blood Count 8.4 x10^3/uL (4.0-11.0) Red Blood Count 3.17 x10^6/uL (3.50-5.40) Hemoglobin 9.4 g/dL (12.0-15.5) Hematocrit 27.9 % (36.0-47.0) Mean Corpuscular Volume 88 fL (79-100) Mean Corpuscular Hemoglobin 30 pg (25-35) Mean Corpuscular Hemoglobin Concent 34 g/dL (31-37) Red Cell Distribution Width 15.0 % (11.5-14.5) Platelet Count 294 x10^3/uL (140-400) Neutrophils (%) (Auto) 46 % (31-73) Lymphocytes (%) (Auto) 17 % (24-48) Monocytes (%) (Auto) 9 % (0-9) Eosinophils (%) (Auto) 25 % (0-3) Basophils (%) (Auto) 2 % (0-3) Neutrophils # (Auto) 3.8 x10^3/uL (1.8-7.7) Lymphocytes # (Auto) 1.4 x10^3/uL (1.0-4.8) Monocytes # (Auto) 0.8 x10^3/uL (0.0-1.1) Eosinophils # (Auto) 2.1 x10^3/uL (0.0-0.7) Basophils # (Auto) 0.2 x10^3/uL (0.0-0.2) Sodium Level 137 mmol/L (136-145) Potassium Level 3.9 mmol/L (3.5-5.1) Chloride Level 98 mmol/L (98-107) Carbon Dioxide Level 27 mmol/L (21-32) Anion Gap 12 (6-14) Blood Urea Nitrogen 34 mg/dL (7-20) Creatinine 4.8 mg/dL (0.6-1.0) Estimated GFR (Cockcroft-Gault) 9.8 Glucose Level 135 mg/dL (70-99) Calcium Level 9.1 mg/dL (8.5-10.1) Laboratory Tests Test 03/31/21 11:33 03/31/21 17:16 03/31/21 21:17 04/01/21 00:28 Glucose (Fingerstick) 155 mg/dL (70-99) 104 mg/dL (70-99) 138 mg/dL (70-99) 157 mg/dL (70-99) Test 04/01/21 06:09 04/01/21 07:00 Glucose (Fingerstick) 133 mg/dL (70-99) White Blood Count 8.4 x10^3/uL (4.0-11.0) Red Blood Count 3.17 x10^6/uL (3.50-5.40) Hemoglobin 9.4 g/dL (12.0-15.5) Hematocrit 27.9 % (36.0-47.0) Mean Corpuscular Volume 88 fL (79-100) Mean Corpuscular Hemoglobin 30 pg (25-35) Mean Corpuscular Hemoglobin Concent 34 g/dL (31-37) Red Cell Distribution Width 15.0 % (11.5-14.5) Platelet Count 294 x10^3/uL (140-400) Neutrophils (%) (Auto) 46 % (31-73) Lymphocytes (%) (Auto) 17 % (24-48) Monocytes (%) (Auto) 9 % (0-9) Eosinophils (%) (Auto) 25 % (0-3) Basophils (%) (Auto) 2 % (0-3) Neutrophils # (Auto) 3.8 x10^3/uL (1.8-7.7) Lymphocytes # (Auto) 1.4 x10^3/uL (1.0-4.8) Monocytes # (Auto) 0.8 x10^3/uL (0.0-1.1) Eosinophils # (Auto) 2.1 x10^3/uL (0.0-0.7) Basophils # (Auto) 0.2 x10^3/uL (0.0-0.2) Sodium Level 137 mmol/L (136-145) Potassium Level 3.9 mmol/L (3.5-5.1) Chloride Level 98 mmol/L (98-107) Carbon Dioxide Level 27 mmol/L (21-32) Anion Gap 12 (6-14) Blood Urea Nitrogen 34 mg/dL (7-20) Creatinine 4.8 mg/dL (0.6-1.0) Estimated GFR (Cockcroft-Gault) 9.8 Glucose Level 135 mg/dL (70-99) Calcium Level 9.1 mg/dL (8.5-10.1) Medications Active Scripts Medications Dose Route/Sig Max Daily Dose Days Date Category Novolog Flexpen (Insulin Aspart) 100 Unit/1 Ml Insuln.pen 3-7 SQ TIDACHC 02/07/21 Reported Lisinopril 5 Mg Tablet 1 Tab PO DAILY 02/07/21 Reported Lantus Solostar (Insulin Glargine,Hum.rec.anlog) 100 Unit/1 Ml Insuln.pen 5 Unit SQ QHS 04/09/15 Reported Atorvastatin Calcium 40 Mg Tablet 40 Mg PO HS 04/09/15 Reported Impression . IMPRESSION: 1. Acute hypoxic respiratory failure secondary to COVID-19 viral pneumonia/acute lung injury and early acute respiratory distress syndrome. S/P intubation 02/17/21. Status post tracheostomy. 2. Nonsmoker. 3. Abnormal chest x-ray consistent with COVID-19 viral pneumonia. 4. Diabetic ketoacidosis--resolved 5. Underlying obesity contributing to hypoxia as well. 6. BOB . hemodialysis started 03/07 7. Fever, 8. Abnormal chest x-ray with diffuse interstitial infiltrates compatible with viral pneumonia 9. [place] in the sputum is a contamination 10. Septic shoc 11. s/p lap G-tube 03/27 12. Delirium Plan . Updated 04/01 Patient does not do well off of sedation We will add Haldol, check EKG Attempt pressure support as tolerated Hemodialysis Chest x-ray reviewed Labs reviewed ABG noted Nutritional support Discussed with RT and RN Updated 03/31 Discussed with RN and RT try pressure support today, decrease sedation Continue current support Hemodialysis DVT GI prophylaxis Nutrition also Updated 03/30 Patient had temperature elevation yesterday defer to ID Oxygenation has improved Patient due to moved to LTAC Hemodialysis. Nephrology Nutritional support DVT prophylaxis Discussed with RN and RT MONTEZ OROPEZA MD Apr 01, 2021 09:15
[2021-04-01 09:19] LABS: FIO2 ABG 40% VENT
--- NOTE | 2021-04-01 09:42 | PDOC ---
DATE OF SERVICE DATE: 04/01/21 TIME: 09:38 SUBJECTIVE ROS On vent , sedated OBJECTIVE Vital Signs Vital Signs Date Time Temp Pulse Resp B/P (MAP) Pulse Ox O2 Delivery O2 Flow Rate FiO2 04/01/21 09:04 62 130/71 04/01/21 08:10 100 Ventilator 04/01/21 06:00 18 04/01/21 04:00 97.9 97.9 I & 0 Intake and Output 04/01/21 07:00 Intake Total 2254 ml Output Total 1820 ml Balance 434 ml Intake Oral 0 ml IV Total 1528 ml Tube Feeding 726 ml Output Urine Total 1470 ml Stool Total 350 ml PHYSICAL EXAM Physical Exam GENERAL: On vent, awake HEENT: Anicteric. . Neck Trach+ LUNGS: decreased at bases HEART: S1, S2. No murmurs. ABDOMEN: Obese, soft. Bowel sounds present. GENITOURINARY: Kern and rectal tube in place. EXTREMITIES: Edema present no cyanosis. CENTRAL NERVOUS SYSTEM: awake, on vent PSYCHIATRIC: Unable to assess. 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 Family History of ESRD - Per at bedside- Pt's Mom was on dialysis and sister is on Dialysis COMMENT/RELEVANT DATA Meds Current Medications Medications (Trade) Dose Ordered Sig/Pepe Start Time Stop Time Status Last Admin Dose Admin Acetaminophen (Tylenol Supp) 650 mg PRN Q6HRS PRN 02/08/21 01:45 02/17/21 10:45 DC Acetaminophen (Tylenol) 500 mg 1X PRN PRN 03/17/21 13:30 03/18/21 13:29 DC Albumin Human 100 ml @ 100 mls/hr 1X ONCE 03/30/21 15:45 03/30/21 16:44 DC 03/30/21 15:44 100 MLS/HR Albuterol Sulfate (Ventolin Hfa) 60 puff STK-MED ONCE 03/17/21 11:29 03/17/21 11:29 DC Alteplase, Recombinant (Cathflo For Central Catheter Clearance) 1 mg 1X ONCE 02/27/21 14:30 02/27/21 14:36 DC 02/27/21 15:19 1 MG Alteplase, Recombinant (Cathflo) 2 mg 1X ONCE 02/27/21 11:00 02/27/21 11:01 DC 02/27/21 11:20 2 MG Amlodipine Besylate (Norvasc) 10 mg DAILY 03/31/21 09:00 04/01/21 09:04 10 MG Atorvastatin Calcium (Lipitor) 40 mg HS 02/08/21 21:00 03/31/21 21:14 40 MG Atropine Sulfate (ATROPINE 0.5mg SYRINGE) 0.5 mg PRN Q5MIN PRN 02/16/21 12:00 Azithromycin 250 mg/Sodium Chloride 250 ml @ 250 mls/hr Q24H 02/14/21 13:30 02/18/21 14:29 DC 02/18/21 11:51 250 MLS/HR Benzonatate (Tessalon Perle) 100 mg [id number] 02/10/21 23:30 02/17/21 10:45 DC 02/16/21 22:07 100 MG Bupivacaine HCl/ Epinephrine Bitart (Sensorcain-Epi 0.5% Kit) 30 ml STK-MED ONCE 03/27/21 10:05 03/27/21 10:05 DC 03/27/21 13:12 16 ML Bupivacaine HCl/ Epinephrine Bitart (Sensorcain-Epi 0.5%-1:[id number] Mpf) 30 ml STK-MED ONCE 03/17/21 10:47 03/17/21 10:47 DC Carvedilol (Coreg) 6.25 mg [id number] 02/08/21 20:30 02/23/21 15:50 DC 02/23/21 08:06 6.25 MG Cefazolin Sodium/ Dextrose (Ancef 2gm Premix) 2 gm STK-MED ONCE 03/23/21 13:00 03/24/21 11:58 DC Ceftriaxone Sodium (Rocephin) 1 gm Q24H 02/14/21 13:00 8/16/21 07:34 DC 02/22/21 12:42 1 GM Cellulose (Surgicel Fibrillar 1x2) 1 each STK-MED ONCE 03/17/21 10:47 03/17/21 10:47 DC 03/17/21 11:56 1 EACH Daptomycin 480 mg/ Sodium Chloride 50 ml @ 100 mls/hr QMWF 03/23/21 16:00 03/26/21 10:29 DC 03/25/21 19:52 100 MLS/HR Dexamethasone Sodium Phosphate (Decadron) 2 mg 1X ONCE 02/27/21 09:00 02/26/21 07:15 DC Dexmedetomidine HCl 400 mcg/ Sodium Chloride 100 ml @ 0 mls/hr CONT PRN 02/27/21 09:45 04/01/21 05:37 31.9 MLS/HR Dextrose (Dextrose 50%-Water Syringe) 12.5 gm PRN Q15MIN PRN 03/01/21 13:00 03/01/21 12:55 12.5 GM Diphenhydramine HCl (Benadryl) 25 mg 1X PRN PRN 03/17/21 13:30 03/18/21 13:29 DC Docusate Sodium (Colace Solution) 100 mg BID 02/23/21 12:00 04/01/21 09:03 100 MG Docusate Sodium (Colace) 100 mg PRN DAILY PRN 02/07/21 08:45 02/23/21 10:47 DC Enalaprilat (Vasotec Inj) 0.625 mg Q6HRS 02/08/21 16:15 02/09/21 16:01 DC 02/09/21 13:42 0.625 MG Enoxaparin Sodium (Lovenox 30mg Syringe) 30 mg Q24H 03/08/21 09:00 03/12/21 15:38 DC 03/12/21 09:04 30 MG Enoxaparin Sodium (Lovenox 40mg Syringe) 40 mg BID 02/09/21 09:00 03/08/21 13:56 DC 03/08/21 08:26 40 MG Enoxaparin Sodium (Lovenox Per Pharmacy Prophylaxis Dosing) 1 each PRN DAILY PRN 02/09/21 06:45 03/12/21 15:38 DC Ephedrine Sulfate (ePHEDrine PF IN SALINE SYRINGE) 50 mg STK-MED ONCE 03/17/21 10:56 03/17/21 10:56 DC Famotidine (Pepcid Vial) 20 mg DAILY 03/10/21 09:00 04/01/21 09:03 20 MG Fentanyl Citrate (Fentanyl 2ml Vial) 100 mcg STK-MED ONCE 03/27/21 13:18 03/27/21 13:18 DC Fluconazole/ Sodium Chloride 100 ml @ 100 mls/hr Q24H 03/07/21 09:00 03/17/21 08:03 DC 03/16/21 08:29 100 MLS/HR Furosemide (Lasix) 40 mg 1X ONCE 03/29/21 15:00 03/29/21 15:02 DC 03/29/21 15:22 40 MG Glycerin/ Hypromellose/ Polyethylene (Artificial Tears) 1 drop PRN Q1HR PRN 02/17/21 10:00 Glycopyrrolate (Robinul) 1 mg STK-MED ONCE 03/27/21 14:07 03/27/21 14:07 DC Guaifenesin (Robitussin Dm) 10 ml PRN Q6HRS PRN 02/10/21 23:30 02/16/21 09:06 10 ML Haloperidol Lactate (Haldol Inj) 2.5 mg 1X ONCE 02/07/21 02:30 02/07/21 03:56 DC Heparin Sodium (Porcine) (Heparin Sodium) 5,000 unit Q8HRS 03/13/21 06:00 04/01/21 06:18 5,000 UNIT Hydralazine HCl (Apresoline Inj) 10 mg PRN Q4HRS PRN 02/11/21 12:15 04/01/21 00:50 10 MG Hydromorphone HCl (Dilaudid) 0.5 mg PRN Q10MIN PRN 03/27/21 06:00 03/28/21 05:59 DC Info (PHARMACY MONITORING -- do not chart) 1 each PRN DAILY PRN 03/30/21 13:00 Insulin Glargine (Lantus Syringe) 5 unit BID 03/06/21 09:00 04/01/21 09:05 5 UNIT Insulin Human Lispro (HumaLOG) 12 units Q6HRS 02/20/21 12:00 02/28/21 15:38 DC 02/27/21 05:41 12 UNITS Insulin Human Regular 100 ml @ 10 mls/hr 1X ONCE 02/07/21 06:30 02/07/21 16:54 DC 02/07/21 09:31 6.5 MLS/HR Insulin Human Regular 100 unit/ Sodium Chloride 101 ml @ 0 mls/hr CONT PRN PRN 02/07/21 06:00 02/07/21 16:54 DC Labetalol HCl (Normodyne Iv Push) 10 mg PRN Q2HR PRN 02/08/21 00:45 03/26/21 21:14 10 MG Lactobacillus Rhamnosus (Culturelle) 1 cap BID 02/16/21 21:00 02/17/21 10:45 DC 02/16/21 22:02 1 CAP Lidocaine HCl (Buffered Lidocaine 1%) 3 ml STK-MED ONCE 03/07/21 13:25 03/07/21 13:25 DC Linezolid (Zyvox) 600 mg BID 03/05/21 09:00 03/12/21 07:00 DC 03/11/21 20:33 600 MG Linezolid/Dextrose 300 ml @ 300 mls/hr Q12HR 03/16/21 10:00 03/18/21 07:37 DC 03/17/21 21:44 300 MLS/HR Lisinopril (Prinivil) 20 mg DAILY 02/17/21 09:00 03/09/21 10:43 DC 02/27/21 09:10 20 MG Lorazepam (Ativan Inj) 0.5 mg PRN Q6HRS PRN 02/08/21 10:00 02/16/21 22:07 0.5 MG Meropenem 1 gm/ Sodium Chloride 100 ml @ 200 mls/hr Q24H 03/18/21 17:00 03/31/21 17:18 200 MLS/HR Methylprednisolone Sodium Succinate (SOLU-Medrol 125MG VIAL) 80 mg Q8HRS 02/25/21 09:00 02/26/21 07:09 DC 02/26/21 05:52 80 MG Metoclopramide HCl (Reglan Vial) 10 mg PRN Q6HRS PRN 02/08/21 00:45 02/12/21 15:51 10 MG Micafungin Sodium 100 mg/Dextrose 100 ml @ 100 mls/hr Q24H 03/21/21 18:00 03/25/21 10:27 DC 03/24/21 16:36 100 MLS/HR Midazolam HCl 100 ml @ 0 mls/hr CONT PRN 02/17/21 10:00 03/20/21 17:18 5 MLS/HR Morphine Sulfate (Morphine Sulfate) 1 mg PRN Q10MIN PRN 03/27/21 06:00 03/28/21 05:59 DC Multi-Ingred Cream/Lotion/Oil/ Oint (Artificial Tears Eye Ointment) 1 reji PRN Q1HR PRN 03/17/21 17:30 03/20/21 15:55 1 REJI Multivitamins/ Minerals Therapeutic (Centrum Multivit-Mineral Liq) 5 ml DAILY 03/14/21 09:00 04/01/21 09:03 5 ML Naloxone HCl (Narcan) 0.4 mg PRN Q2MIN PRN 03/27/21 14:30 Neostigmine [place] (Neostigmine Methylsulfate) 5 mg STK-MED ONCE 03/27/21 14:06 03/27/21 14:07 DC Norepinephrine Bitartrate 8 mg/ Dextrose 258 ml @ 21.711 mls/ hr CONT PRN 03/06/21 13:45 03/19/21 18:45 23.3 MLS/HR Nystatin (Nystop) 1 reji BID 03/02/21 21:00 04/01/21 09:05 1 REJI Ondansetron HCl (Zofran Odt) 4 mg 1X ONCE 02/06/21 23:30 02/06/21 23:31 DC 02/06/21 23:57 4 MG Ondansetron HCl (Zofran) 4 mg 1X ONCE 02/07/21 20:00 02/07/21 20:07 DC 02/07/21 20:06 4 MG Phenylephrine HCl (PHENYLEPHRINE in 0.9% NACL PF) 1 mg STK-MED ONCE 03/27/21 13:46 03/27/21 13:46 DC Piperacillin Sod/ Tazobactam Sod (Zosyn Per Pharmacy) 1 each PRN DAILY PRN 02/23/21 07:45 03/17/21 10:04 DC Piperacillin Sod/ Tazobactam Sod 2.25 gm/Sodium Chloride 50 ml @ 100 mls/hr Q8HRS 03/07/21 14:00 03/17/21 08:03 DC 03/17/21 05:58 100 MLS/HR Piperacillin Sod/ Tazobactam Sod 3.375 gm/Sodium Chloride 50 ml @ 100 mls/hr Q6HRS 03/14/21 18:00 Cancel Piperacillin Sod/ Tazobactam Sod 4.5 gm/Sodium Chloride 100 ml @ 200 mls/hr Q6HRS 02/23/21 08:00 03/07/21 08:18 DC 03/07/21 06:12 200 MLS/HR Potassium Chloride/Water 100 ml @ 100 mls/hr PRN Q1HR PRN 02/07/21 06:00 02/07/21 16:54 DC Potassium Chloride (Klor-Con) 40 meq 1X ONCE 02/13/21 12:00 02/13/21 12:01 DC 02/13/21 13:21 40 MEQ Prochlorperazine Edisylate (Compazine) 5 mg PACU PRN PRN 03/27/21 06:00 03/28/21 05:59 DC Propofol (Diprivan) 200 mg STK-MED ONCE 03/27/21 12:02 03/27/21 12:03 DC Remdesivir 100 mg/ Sodium Chloride 230 ml @ 460 mls/hr Q24H 02/15/21 12:00 02/18/21 12:29 DC 02/18/21 11:52 460 MLS/HR Remdesivir 200 mg/ Sodium Chloride 210 ml @ 210 mls/hr 1X ONCE 02/11/21 13:00 02/12/21 11:55 DC 02/11/21 14:33 210 MLS/HR Ringer's Solution 1,000 ml @ 30 mls/hr Q24H 03/27/21 06:00 03/27/21 17:59 DC Rocuronium [place] (Zemuron) 50 mg STK-MED ONCE 03/27/21 13:16 03/27/21 13:17 DC Sennosides (Senna) 17.2 mg PRN BID PRN 02/07/21 08:45 02/22/21 08:29 17.2 MG Sevoflurane (Ultane) 60 ml STK-MED ONCE 03/27/21 14:19 03/27/21 14:20 DC Sodium Chloride 1,000 ml @ 25 mls/hr Q24H 03/27/21 14:30 03/29/21 14:07 DC 03/28/21 14:30 25 MLS/HR Sodium Chloride (Normal Saline Flush) 3 ml QSHIFT PRN 03/27/21 14:30 Succinylcholine Chloride (Anectine) 200 mg STK-MED ONCE 02/17/21 10:00 02/25/21 08:40 DC Vancomycin HCl (Vanco Per Pharmacy) 1 each PRN DAILY PRN 03/04/21 18:30 03/05/21 08:59 DC 03/04/21 19:47 1 EACH Vancomycin HCl (Vancomycin Trough Level) 1 each 1X ONCE 03/06/21 07:00 03/06/21 07:01 Cancel Vancomycin HCl 1.5 gm/Sodium Chloride 500 ml @ 250 mls/hr Q12H 03/05/21 07:30 03/05/21 08:58 DC Vancomycin HCl 1 gm/Sodium Chloride 250 ml @ 250 mls/hr Q12H 03/04/21 20:00 UNV Vancomycin HCl 2 gm/Sodium Chloride 500 ml @ 250 mls/hr 1X ONCE 03/04/21 19:00 03/04/21 20:59 DC 03/04/21 19:26 250 MLS/HR Vecuronium [place] (Norcuron Bolus) 6 mg PRN Q2HRS PRN 03/06/21 14:30 03/16/21 10:16 5 MG Vitamin A/Vitamin D (Vitamin A & D Ointment) 1 reji PRN Q1HR PRN 03/10/21 01:45 03/20/21 09:34 1 REJI Lab Laboratory Tests Test 03/31/21 11:33 03/31/21 17:16 03/31/21 21:17 04/01/21 00:28 Glucose (Fingerstick) 155 mg/dL (70-99) 104 mg/dL (70-99) 138 mg/dL (70-99) 157 mg/dL (70-99) Test 04/01/21 06:09 04/01/21 07:00 04/01/21 08:00 Glucose (Fingerstick) 133 mg/dL (70-99) White Blood Count 8.4 x10^3/uL (4.0-11.0) Red Blood Count 3.17 x10^6/uL (3.50-5.40) Hemoglobin 9.4 g/dL (12.0-15.5) Hematocrit 27.9 % (36.0-47.0) Mean Corpuscular Volume 88 fL (79-100) Mean Corpuscular Hemoglobin 30 pg (25-35) Mean Corpuscular Hemoglobin Concent 34 g/dL (31-37) Red Cell Distribution Width 15.0 % (11.5-14.5) Platelet Count 294 x10^3/uL (140-400) Neutrophils (%) (Auto) 46 % (31-73) Lymphocytes (%) (Auto) 17 % (24-48) Monocytes (%) (Auto) 9 % (0-9) Eosinophils (%) (Auto) 25 % (0-3) Basophils (%) (Auto) 2 % (0-3) Neutrophils # (Auto) 3.8 x10^3/uL (1.8-7.7) Lymphocytes # (Auto) 1.4 x10^3/uL (1.0-4.8) Monocytes # (Auto) 0.8 x10^3/uL (0.0-1.1) Eosinophils # (Auto) 2.1 x10^3/uL (0.0-0.7) Basophils # (Auto) 0.2 x10^3/uL (0.0-0.2) Sodium Level 137 mmol/L (136-145) Potassium Level 3.9 mmol/L (3.5-5.1) Chloride Level 98 mmol/L (98-107) Carbon Dioxide Level 27 mmol/L (21-32) Anion Gap 12 (6-14) Blood Urea Nitrogen 34 mg/dL (7-20) Creatinine 4.8 mg/dL (0.6-1.0) Estimated GFR (Cockcroft-Gault) 9.8 Glucose Level 135 mg/dL (70-99) Calcium Level 9.1 mg/dL (8.5-10.1) O2 Saturation 98 % (92-99) Arterial Blood pH 7.43 (7.35-7.45) Arterial Blood pCO2 at Patient Temp 35 mmHg (35-46) Arterial Blood pO2 at Patient Temp 131 mmHg (75-108) Arterial Blood HCO3 23 mmol/L (21-28) Arterial Blood Base Excess -1 mmol/L (-3-3) FiO2 40% vent Results All relevant outside records, renal labs, imaging studies, telemetry/EKG's were reviewed. Justicifation of Admission Dx: Justifications for Admission: Justification of Admission Dx: N/A GIGI CARMEN MD Apr 01, 2021 09:42
--- NOTE | 2021-04-01 10:39 | RAD ---
XR CHEST 1V History: Reason: Vent / Spl. Instructions: / History: Comparison: March 26, 2021 Findings: Moderate diffuse pulmonary opacities, slightly decreased compared to prior. No pleural effusion. No p neumothorax. Stable right IJ central line and right PICC as well as tracheostomy tube. Unchanged hear t size. Impression: 1. Moderate diffuse pulmonary opacities, slightly decreased compared to prior. Electronically signed by: Braeden Echevarria DO (04/01/2021 10:36 AM) [id number]
--- NOTE | 2021-04-01 10:47 | PDOC ---
Infectious Disease Note Subjective: Subjective Pt intubated/sedated Blood pressure is under control Vital Signs: Vital Signs Vital Signs Date Time Temp Pulse Resp B/P (MAP) Pulse Ox O2 Delivery O2 Flow Rate FiO2 04/01/21 09:04 62 130/71 04/01/21 08:10 100 Ventilator 04/01/21 06:00 18 04/01/21 04:00 97.9 97.9 Physical Exam: PHYSICAL EXAM GENERAL: Intubated HEENT: Normocephalic, atraumatic. Anicteric. Slight bilateral periorbital edema. Neck right IJ HDC clean Trach + LUNGS: Rhonchi. HEART: S1, S2. No murmurs. ABDOMEN: Obese, soft. Bowel sounds present. Nontender, nondistended. Abdominal and pubis mons edema noted. PEG tube in place GENITOURINARY: Kern and fecal tube in place. EXTREMITIES: Edema present no cyanosis. CENTRAL NERVOUS SYSTEM: Intubated. PSYCHIATRIC: Unable to assess. Derm has pressure wounds wound pictures noted in chart. Generalized rash, PICC line , right IJ HDC clean Medications: Inpatient Meds: Medications reviewed. Labs: Lab Laboratory Tests Test 03/31/21 11:33 03/31/21 17:16 03/31/21 21:17 04/01/21 00:28 Glucose (Fingerstick) 155 mg/dL (70-99) 104 mg/dL (70-99) 138 mg/dL (70-99) 157 mg/dL (70-99) Test 04/01/21 06:09 04/01/21 07:00 04/01/21 08:00 Glucose (Fingerstick) 133 mg/dL (70-99) White Blood Count 8.4 x10^3/uL (4.0-11.0) Red Blood Count 3.17 x10^6/uL (3.50-5.40) Hemoglobin 9.4 g/dL (12.0-15.5) Hematocrit 27.9 % (36.0-47.0) Mean Corpuscular Volume 88 fL (79-100) Mean Corpuscular Hemoglobin 30 pg (25-35) Mean Corpuscular Hemoglobin Concent 34 g/dL (31-37) Red Cell Distribution Width 15.0 % (11.5-14.5) Platelet Count 294 x10^3/uL (140-400) Neutrophils (%) (Auto) 46 % (31-73) Lymphocytes (%) (Auto) 17 % (24-48) Monocytes (%) (Auto) 9 % (0-9) Eosinophils (%) (Auto) 25 % (0-3) Basophils (%) (Auto) 2 % (0-3) Neutrophils # (Auto) 3.8 x10^3/uL (1.8-7.7) Lymphocytes # (Auto) 1.4 x10^3/uL (1.0-4.8) Monocytes # (Auto) 0.8 x10^3/uL (0.0-1.1) Eosinophils # (Auto) 2.1 x10^3/uL (0.0-0.7) Basophils # (Auto) 0.2 x10^3/uL (0.0-0.2) Sodium Level 137 mmol/L (136-145) Potassium Level 3.9 mmol/L (3.5-5.1) Chloride Level 98 mmol/L (98-107) Carbon Dioxide Level 27 mmol/L (21-32) Anion Gap 12 (6-14) Blood Urea Nitrogen 34 mg/dL (7-20) Creatinine 4.8 mg/dL (0.6-1.0) Estimated GFR (Cockcroft-Gault) 9.8 Glucose Level 135 mg/dL (70-99) Calcium Level 9.1 mg/dL (8.5-10.1) O2 Saturation 98 % (92-99) Arterial Blood pH 7.43 (7.35-7.45) Arterial Blood pCO2 at Patient Temp 35 mmHg (35-46) Arterial Blood pO2 at Patient Temp 131 mmHg (75-108) Arterial Blood HCO3 23 mmol/L (21-28) Arterial Blood Base Excess -1 mmol/L (-3-3) FiO2 40% vent Micro GRAM STAIN EVALUATION Final Final This specimen is of good quality and is acceptable for routine bacterial culture. Culture results to follow. NO ORGANISMS SEEN. SQUAMOUS EPI CELL:RARE PMN (WBCs):MODERATE Unless otherwise specified, Testing Performed by: [address] [address] For Inquires, the Physician may contact the Microbiology department at [phone] RESPIRATORY CULTURE Final Final MODERATE GRAM NEGATIVE RODS on 03/18/21 at 1120 FINAL ID= [[email or web address] [email or web address].] ACINETOBACTER URSINGII. ANTIMICROBIAL SUSCEPTIBILITY Final Comment NEG SAGE 56 ACINETOBACTER URSINGII. ANTIBIOTIC RESULT INTERPRETATION AMPICILLIN/SULBACTAM <=4/2 S AMIKACIN <=16 S CEFTRIAXONE 2 S CEFTAZIDIME 16 I CEFOTAXIME 16 I CIPROFLOXACIN <=0.25 S CEFEPIME 4 S GENTAMICIN <=2 S LEVOFLOXACIN <=0.5 S RUN DATE: 03/19/21 [facility] *LIVE* PAGE 2 RUN TIME: 1120 Specimen Inquiry SPEC: [id number] PATIENT: ARIADNA BANKS [id number] (Continued) -------- ---- Procedure Result CONTINUED ON NEXT PAGE RUN DATE: 03/19/21 [facility] *LIVE* PAGE 3 RUN TIME: 1120 Specimen Inquiry SPEC: [id number] PATIENT: ARIADNA BANKS [id number] (Continued) Procedure Result ANTIMICROBIAL SUSCEPTIBILITY Final (continued) MINOCYCLINE <=4 S MEROPENEM <=1 S TRIMETHOPRIM/SULFAMETHOXAZOLE <=0.5/9.5 S TOBRAMYCIN <=2 S Unless otherwise specified, Testing Performed by: [address] [address] For Inquires, the Physician may contact the Microbiology department at [phone] Culture negative Objective: Assessment: 1. Febrile illness. Improved 2. COVID-19 infection present on date of admission, 02/06/2021. Status post remdesivir, dexamethasone. 3. Acute hypoxic respiratory failure, status post intubation. S/P Trach on 03/17 Trach cultures positive for Rock albicans and now acinebacter ursungi 4. Diabetes. 5. Diarrhea. 6. Hypertension. 7. Hyperlipidemia. 8. Anemia. 9. BOB on HD 10.UC rock albican, ua neg Plan: Plan of Care Cont Meropenem March 18 Follow-up lab ,cultures, C. diff PCR negative Follow Kern maintenance protocol Wound care per wound treatment Offload Continue supportive care. Prognosis poor D/W KAITLYNN CURIEL MD Apr 01, 2021 10:47
--- NOTE | 2021-04-01 10:55 | PDOC ---
[employer] PROGRESS NOTE Date of Service DOS: DATE: 04/01/21 TIME: 10:54 Chief Complaint Chief Complaint CC: Covid-19 DKA Hypotension Nausea Vomiting Combined metabolic and respiratory acidosis Acute electrolyte derangementhyponatremia, hypochloremia due to volume depletion Hyperglycemia BOB due to ATN, requiring dialysis Erythrocytosis Candiduria Sacral decubitus ulcer S/P Trach on (03/17/21) Trach cultures positive for [place] albicans and now acinebacter ursungi History of Present Illness History of Present Illness Ms Borges is a 46 year old female who presented with nausea/vomiting since 7 AM 02/06/2021 in the morning. Patient stated that her recently tested positive for Covid. She states that he "coughed in my face because he thought it was funny." She reports subjective fevers and chills and nausea/vomiting. Denies sore throat, cough, shortness of breath. No chest pain. Does have some upper abdominal discomfort after vomiting, that she attributes to muscular strain. She was not vaccinated for Covid. 02/08: No acute events overnight. Patient seen and examined bedside and resting comfortably. Continues to complain of nausea not able to tolerate any diet at this time. Saturating 98% on room air. Patient's chart, labs, images were reviewed and discussed with RN 02/09: Afebrile, currently breathing on room air. Still with complaints of nausea and vomiting x3 today. States that she has history of similar symptoms that have been mildly improved with IV Dilaudid. 02/10: Patient febrile today with T-max 102.2 F. She still admits to nausea, denies any further vomiting. We will continue to provide supportive care and monitor for any recurrent fevers overnight. Patient continues to improve may discharge tomorrow to continue self-isolation. 02/11: Febrile overnight, T-max 102.3 F. She did become hypoxic overnight, currently breathing on 4 L nasal cannula. Also admits to associated vomiting or diarrhea overnight. Discussed with RN, will initiate remdesivir and closely monitor LFTs. IV Decadron, and prophylactic antibiotics. 02/12: Low-grade fever overnight, T-max 99.7. Currently breathing on room air. Will discontinue remdesivir, steroids, and antibiotics; will observe overnight. Still with complaints of vomiting x1 and diarrhea. We will continue to provide supportive care and hope to discharge in the next day or so. 02/13: Afebrile. Still complains of intermittent diarrhea. At the time of my evaluation she was breathing on 6 L nasal cannula; this is somewhat misleading as patient states that she did not feel short of breath but was placed on 6 L by nursing staff overnight. 02/14: Afebrile, currently breathing on 8 L nasal cannula. There has been some misleading documentation, chart oxygen this patient is requiring. Discussed with RN, will resume remdesivir to complete total of 5 days. Continue to monitor LFTs. Will add steroids, Rocephin, and azithromycin. 02/15: Afebrile. Became much more hypoxic overnight, requiring BiPAP. At the time of my evaluation she is still breathing on BiPAP. Consultation was placed to pulmonology. Had discussion with Dr. Myrick about initiating Tocilizumab 02/16: No acute events overnight. Patient becoming more hypoxic saturating 94% and requiring BiPAP. Patient will be transferred to the ICU at this time. For worsening clinical status. Discussed with pulmonary. Patient's chart, labs, images were reviewed and discussed with RN 02/17: Transferred to ICU yesterday afternoon. Seen and examined at bedside she remains on 100% FiO2 on BiPAP. Respirations do appear somewhat labored. Suspec t intubation may be impending. We will closely monitor. Increase lisinopril to 20 today. 02/18: Patient required intubation yesterday afternoon. Saw and examined this morning. She is intubated and sedated. Increase insulin today. Covid protocol ordered. Wean as tolerated. Plan of care discussed with bedside nurse. 02/19: Bedside. She remains intubated and sedated. Continue Covid protocol. Wean oxygen sedation as tolerated. Pulmonary following. Plan of care discussed with bedside RN. 02/20: Patient seen and examined at bedside. She remains intubated and sedated. No major clinical changes. Continue current treatment. Pulmonary following. Plan of care discussed with bedside RN. 02/21: Patient seen and examined at bedside. Remains intubated and sedated date and admission clinical changes. Increase free water flushes today due to hypernatremia. Plan of care discussed with bedside nurse. 02/22: Patient seen and examined at bedside. O2 requirement actually improving, although remains intubated. Possible SBT in the coming days. Hypernatremia improving. Plan of care discussed bedside RN. 02/23: Patient remains in ICU on ventilator with FiO2 100%, PEEP 7. Repeat chest x-ray yesterday showed diffuse bilateral pulmonary opacities with no interval improvement. Will discontinue Rocephin and initiate Zosyn. We will continue IV steroids for a full 10-day course 02/24: Afebrile. On vent with FiO2 40%, PEEP 6. Her Coreg has been held due to persistent bradycardia. No documented history of systolic heart failure or previous echocardiogram. Will need to obtain echocardiogram prior to discharge. Continue IV steroids and antibiotics. 02/25: Afebrile. Remains ventilated with FiO2 45%, PEEP 6. Chest x-ray today showed slight improvement of the pulmonary infiltrates, no pneumothorax. Completed 10-day course of IV Decadron. Will initiate slow Solu-Medrol taper. Continue IV Zosyn. Continue supportive care. 02/26: Afebrile. On vent with FiO2 45%, PEEP 6. Completed 10 days of IV Decadron. Will continue IV Zosyn. Continue supportive care. Critical care time 30 minutes spent reviewing charts, reviewing imaging, reviewing labs, discussion with RN. 02/27: Afebrile. On vent with FiO2 45%, PEEP 6. Completed 10 days of steroids and completed remdesivir. Continue with IV Zosyn. CPAP trial yesterday. Continue NG tube and supportive care. 02/28:. Patient remains on vent with FiO2 40%, PEEP 5. Afebrile. Completed steroids and remdesivir. Some noted hypoglycemia overnight, will de-escalate basal insulin. Continue IV Zosyn. Ventilator management per pulmonology. Continue NG tube and supportive care. 03/01: On vent with FiO2 40%, PEEP 5. Afebrile. Completed steroids and remdesivir. Blood glucose well controlled. Continue empiric antibiotics with Zosyn. Ventilator management per pulmonology. Continue NG tube and supportive care. 03/02: No acute events overnight. Patient hypotensive the morning due to oversedation. Will wean off sedation and keep antihypertensive medications on board. Currently saturating 100% on vent settings of 18/450/40/5. Will attempt spontaneous breathing trial today to see how patient does. 03/03: No acute events overnight. Patient saturating 98% on vent settings of 18/450/40/5. Will defer spontaneous breathing trials to pulmonary at this time. Patient's chart, labs, images were reviewed and discussed with RN 8: No acute events overnight. Patient saturating 9 9% on vent settings of 18/450/30/5. Patient currently is unable to tolerate weaning. Per pulmonary. Patient's chart, labs, images were reviewed and discussed with RN 03/05: No acute events overnight. Patient is saturating 97% on vent settings of 18/450/55/5. Her FiO2 needs to be increased due to abnormal ABG with 7.3 //24. Patient's chart, labs, images were reviewed and discussed with RN 8: No acute events overnight. Patient saturating 94% on vent settings of 18/450/55/5. Chest x-ray showing increase in pulmonary infiltrates. Wound care is consulted for decubitus ulcer patient's chart, labs, images were reviewed and discussed with RN 03/07: No acute events overnight. Patient saturating 94% on vent settings of 20/450/70/8. Patient now heading into renal failure with her creatinine bumped up from 1.5-4.2. Decreased urine output. Plan for hemodialysis today and temporary catheter placement and nephrology is consulted. 03/08: No acute events overnight. Patient did have a nausea vomiting episode and tube feeds were held. KUB repeat shows NG tube still in the stomach. Will resume tube feeds at trickle and advance to goal today. Will start hemodialysis soon. 03/09: Seen on vent 20/450/60%/8. ABG 7.2 WBC 11.4, Hb 7.4, platelets 188, NA 131, K4.9, BUN 48, CR 51, glucose 199, phosphorus 7.9, mag 2.2, AST 265 ALT 219, albumin 1.1. Chest radiograph appears unchanged from prior. Dialysis x1 today 03/10: Afebrile. Seen on vent, 20/450/60/7 with ABG 7.3 . Tolerated dialysis well on 03/09. LFTs similar. 03/11: Afebrile. Seen on vent, sedated. Still requiring Levophed for BP support. WBC 16.7, Hb 8.1, NA 130, ABG 7.3 on 55% FiO2 PEEP 6. On Zosyn and Zyvox Diflucan. Dialysis today 03/12: Afebrile. Still requiring Levophed for BP support sedated with Versed febrile Precedex. WBC 16.1, Hb 8.5, platelets 185, NA 133. Trach plan tentatively 03/17. O2 saturations 93% on 50% FiO2 PEEP 6. ABG 7. On Zosyn and Zyvox Diflucan. 03/13: Afebrile. Still on Levophed for BP support lightly sedated. 7. on 45% FiO2. Plan for dialysis today. On Zosyn and Zyvox Diflucan. More swollen today. 03/14: Afebrile. Weaning down off Levophed. WBC 14.9 NA 132. O2 saturations 92% on 45% FiO2 PEEP 5. Afebrile. O2 saturations 91% on FiO2 45% PEEP 6. Continued on Zosyn and Zyvox Diflucan. Tentative trach planned 03/17/2021 CC time 31 minutes 03/16/21: Patient seen and examined in ICU. Periorbital as well as upper and lower extremity edema noted. OG feed running at 30cc/hr. Still on vent on pressure control with a rate of 24 with 45% FiO2. Patient has rectal bag. Currently she has 98% O2 sat. Currently sedated with Dexmedetomidine, Propofol, Versed, and Fentanyl. Discussed with RN. Chart reviewed. 03/17/21: Patient was seen and examined in the ICU today. Periorbital edema as well as abdominal and mons pubis edema was noted. Patient still on vent on pressure control with Fi02 of 45% plus 6 PEEP. Patient had rectal bag. Currently sedated on Dexmedetomidine, Propofol, Versed, and Fentanyl. Discussed with RN. Chart reviewed. 03/18/21: Patient seen and examined in ICU. On vent via trach that was placed yesterday. Vent settings are Pressure Control of 40 with FiO2 of 45% and 6 PEEP. Trach clean and dry. Orbital swelling still present. Pupils are sluggish. Patient on TPN running at 30cc/hr. Kern to bedside and rectal bag in place. Current O2 sat at 94%. Sedated on Dexmedetomidine, Propofol, Versed, and Fentanyl. Discussed with RN. Chart reviewed. 03/19/21: Patient was seen and examined in the ICU today. Currently on vent via trach on pressure control of 42, rate of 24, FiO2 of 45%, and 6 PEEP. O2 sat is at 97% while patient is being examined. Trach is clean and dry. PICC line is in place on right arm. Periorbital swelling has decreased slightly since examined yesterday. Patient is sedated on Dexmedetomidine, Propofol, Versed, and Fentanyl. Discussed with RN. Chart reviewed. 03/20/21: Patient seen and examined in the ICU. Periorbital edema is slightly decreased since yesterday. O2 sat while being examined was 93%. NG tube in place and running at 30cc/hr. Patient on vent via trach on pressure control of 40 with FiO2 of 45 and rate of 24. Sedated on Dexmedetomidine, Propofol, Versed, and Fentanyl. PICC line in place. Kern to bedside. Rectal bag present. Discussed with RN. Chart reviewed. 03/21/21: Patient was seen and examined in the ICU today. She was semi-sedated.. She was on Dexmedetomidine and Fentanyl. We are holding the Propofol. Her eyes were periodically open but she was not making meaningful eye contact or tracking. On vent via trach with pressure control of 40 and FiO2 at 45. Rate was 24. PEEP was 5. Trach was clean and dry. While being examined, her O2 sat was 94%. Rectal bag and Kern to bedside in place. NG tube in place and feeding at 30cc/hr. IV fluids still running. Levophed has been stopped. Discussed with RN. Chart reviewed. 03/22/21: Patient was seen and examined in the ICU. She was semi-sedated on Propofol and Dexmedetomidine. Her eyes were open but she did not make meaningful eye contact. Her blood pressure was elevated (198/102) while being examined and she had just been given hydralazine to lower it. There are plans to place a PEG tube tomorrow. Currently on vent via trach on pressure control of 40 with FiO2 of 45%, 5 PEEP, and a rate of 24. Current O2 sat is 98%. She is feeding through an NG tube at 30cc/hr. Rectal bag and Kern to bedside present. SCDs on patient for DVT prophylaxis. She did not do her daily dialysis today but the plan is to start back on that tomorrow. Discussed with RN. Chart reviewed. 03/23/2021: Patient remains in ICU on ventilator. FiO2 40%, PEEP 5. Trach cultures positive for [place] albicans and acinebacter ursungi. We will continue treatment with IV antibiotics and micafungin, per ID. HD per nephrology. Plans for PEG tube placement today. 30 minutes critical care time was spent reviewing charts, reviewing labs, reviewing imaging, discussion with RN. 03/24/2021: Afebrile. On vent with FiO2 45%, PEEP 5. Had attempted PEG placement per GI yesterday, but unable to locate safe path for PEG; will consider surgical opinion. Once PEG is in place she should be stable for LTAC transfer when accepted. Continue antibiotics, per ID. 30 minutes critical care time was spent reviewing charts, reviewing labs, reviewing imaging, discussion with RN. 03/25/2021: Febrile overnight with T-max 101.5 F. On vent with FiO2 45%, PEEP 5. Surgery has been consulted with tentative plans for laparoscopic versus open gastrostomy placement tomorrow. Trach cultures positive for [place] albicans and now acinebacter ursungi; will continue antibiotic management, per ID. Hemodialysis, per nephrology. Patient needing LTAC placement, but currently without benefits. ornamental metal worker helper following for discharge planning. Critical care time 30 minutes spent reviewing charts, reviewing labs, reviewing imaging, discussion with RN. 03/26/2021: Febrile today with T-max 100.5 F. Awake on vent with FiO2 45%, PEEP 5. When I ask if she remembers any she nods. G-tube placement scheduled for tomorrow, per general surgery. Chest x-ray today showed slight interval increase in diffuse infiltrate. Continue antibiotic management, per ID. Hemodialysis per nephrology. Reportedly did not tolerate CPAP trial this morning. ornamental metal worker helper following for LTAC placement. Critical care time 30 minutes spent reviewing charts, reviewing labs, reviewing imaging, discussion with RN. 03/27/2021: On vent with FiO2 45%, PEEP 5. Afebrile today. Continue treatment of acute renal failure requiring HD, per nephrology. Monitor kidney function for recovery. G-tube placement scheduled for today, per general surgery. Likely LTAC placement soon, but this is been a difficult as she is self-pay without benefits; secondary social studies teacher following. Critical care time 30 minutes spent reviewing charts, reviewing labs, reviewing imaging, discussion with RN. 03/28/2021: Afebrile. On vent with FiO2 40%, PEEP 5. Had laparoscopic gastrostomy tube placed yesterday, per general surgery. Continue treatment of acute renal failure requiring HD, per nephrology. Continue IV antibiotics, per ID. Likely LTAC placement soon, but this is been a difficult as she is self-pay without benefits; secondary social studies teacher following. Critical care time 30 minutes spent reviewing charts, reviewing labs, reviewing imaging, discussion with RN. 03/29/2021: Afebrile. On vent with FiO2 45%, PEEP 5. S/P laparoscopic gastrostomy tube; tube feeds running. HD, per nephrology. Continue meropenem, per ID. Anticipate LTAC placement soon now that PEG has being placed; secondary social studies teacher helping in these regards. Critical care time 30 minutes spent reviewing charts, reviewing labs, reviewing imaging, discussion with RN. 03/30 No major events or clinical changes overnight. Patient evaluated at bedside this morning on trach and G-tube. Tolerating these well. Has been working on insurance for patient for placement as she will need long-term care. Guarded prognosis. Plan of care discussed with bedside nurse. 03/31 No major clinical changes. Remains trached. Sedated. Continue current plan. 04/01 No changes. Patient resting in bed when evaluated sedated. is supposed to be working on insurance for placement for the patient. Otherwise no changes. Vitals/I&O Vitals/I&O: Vital Signs Date Time Temp Pulse Resp B/P (MAP) Pulse Ox O2 Delivery O2 Flow Rate FiO2 04/01/21 09:04 62 130/71 04/01/21 08:10 100 Ventilator 04/01/21 06:00 18 04/01/21 04:00 97.9 97.9 I & O 03/31/21 03/31/21 04/01/21 15:00 23:00 07:00 Intake Total 0 ml 1172 ml 1082 ml Output Total 900 ml 920 ml Balance 0 ml 272 ml 162 ml Physical Exam Physical Exam: GENERAL: Intubated HEENT: Normocephalic, atraumatic. Anicteric. Slight bilateral periorbital edema. Neck right IJ HDC clean Trach + LUNGS: Rhonchi. HEART: S1, S2. No murmurs. ABDOMEN: Obese, soft. Bowel sounds present. Nontender, nondistended. Abdominal and pubis mons edema noted. PEG tube in place GENITOURINARY: Kern and fecal tube in place. EXTREMITIES: Edema present no cyanosis. CENTRAL NERVOUS SYSTEM: Intubated. PSYCHIATRIC: Unable to assess. Derm has pressure wounds wound pictures noted in chart. Generalized rash, PICC line , right IJ HDC clean General: No acute distress, Other (sedated) Heart: Regular rate, Normal S1, Normal S2 Lungs: Clear Abdomen: Soft, Other (G-tube in place) Extremities: Other (ANASARCA) Skin: No rashes, No significant lesion Labs Labs: Laboratory Tests Test 03/31/21 11:33 03/31/21 17:16 03/31/21 21:17 04/01/21 00:28 Glucose (Fingerstick) 155 mg/dL (70-99) 104 mg/dL (70-99) 138 mg/dL (70-99) 157 mg/dL (70-99) Test 04/01/21 06:09 04/01/21 07:00 04/01/21 08:00 Glucose (Fingerstick) 133 mg/dL (70-99) White Blood Count 8.4 x10^3/uL (4.0-11.0) Red Blood Count 3.17 x10^6/uL (3.50-5.40) Hemoglobin 9.4 g/dL (12.0-15.5) Hematocrit 27.9 % (36.0-47.0) Mean Corpuscular Volume 88 fL (79-100) Mean Corpuscular Hemoglobin 30 pg (25-35) Mean Corpuscular Hemoglobin Concent 34 g/dL (31-37) Red Cell Distribution Width 15.0 % (11.5-14.5) Platelet Count 294 x10^3/uL (140-400) Neutrophils (%) (Auto) 46 % (31-73) Lymphocytes (%) (Auto) 17 % (24-48) Monocytes (%) (Auto) 9 % (0-9) Eosinophils (%) (Auto) 25 % (0-3) Basophils (%) (Auto) 2 % (0-3) Neutrophils # (Auto) 3.8 x10^3/uL (1.8-7.7) Lymphocytes # (Auto) 1.4 x10^3/uL (1.0-4.8) Monocytes # (Auto) 0.8 x10^3/uL (0.0-1.1) Eosinophils # (Auto) 2.1 x10^3/uL (0.0-0.7) Basophils # (Auto) 0.2 x10^3/uL (0.0-0.2) Sodium Level 137 mmol/L (136-145) Potassium Level 3.9 mmol/L (3.5-5.1) Chloride Level 98 mmol/L (98-107) Carbon Dioxide Level 27 mmol/L (21-32) Anion Gap 12 (6-14) Blood Urea Nitrogen 34 mg/dL (7-20) Creatinine 4.8 mg/dL (0.6-1.0) Estimated GFR (Cockcroft-Gault) 9.8 Glucose Level 135 mg/dL (70-99) Calcium Level 9.1 mg/dL (8.5-10.1) O2 Saturation 98 % (92-99) Arterial Blood pH 7.43 (7.35-7.45) Arterial Blood pCO2 at Patient Temp 35 mmHg (35-46) Arterial Blood pO2 at Patient Temp 131 mmHg (75-108) Arterial Blood HCO3 23 mmol/L (21-28) Arterial Blood Base Excess -1 mmol/L (-3-3) FiO2 40% vent Assessment and Plan Assessmemt and Plan Problems Medical Problems: (1) Ketoacidosis Status: Acute Comment Review of Relevant I have reviewed the following items mazin (where applicable) has been applied. Justifications for Admission Other Justification LEO DELGADO MD Apr 01, 2021 10:55
[2021-04-01] MEDS: HALOPERIDOL LACTATE 5 MG/ML VIAL. IVP SCH ×2 (11:30→22:32)
[2021-04-01] MEDS ORDERED: DIALYSIS PATIENT. MC PRN (13:30)
[2021-04-01] MEDS ORDERED: IV NORMAL SALINE 1000ML BAG 1,000 ML IV PRN ×2 (13:30)
--- NOTE | 2021-04-01 15:53 | NUR ---
SS following up with discharge planning. SS reviewed pt chart and discussed with pt RN. Pt is currently on the vent at 40%. COVID19 recovered. G tube and trach in place. Pt on IV Meropenem. Pt on Sub Q Heparin, Fentanyl, Precedex, and Propofol. Self pay. Med Assist following and currently awaiting pt's spouse to produce two more needed documents for Medicaid and Disability application. Pt needing LTACH but has no benefits at this time. SS will continue to follow for discharge planning.
[2021-04-01] MEDS: MEROPENEM 1 GM in IV NORMAL SALINE 100ML 100 ML IV SCH (17:26)
[2021-04-01] MEDS: fentaNYL HIGH DOSE PCA 55 ML IV PRN (17:28)
--- NOTE | 2021-04-01 17:43 | NUR ---
Wound/Ostomy Care Wound Type/Assessment: Wound care follow up for buttocks pressure ulcer that remains mostly eschar covered, with some yellow slough and edges beginning to see some red granulation tissue coming in, but remains unstageable. Cleansed area and redressed. Pt also has a resolving Stage II PU to left buttock, no other wounds noted on full skin inspection. Treatment Recommendations/Plan: Cleanse wounds. Apply honey alginate to buttocks wound, cover with foam dressing, change every 2-3 days. Left buttock and perirectal areas- apply A&D ointment BID and PRN Education provided: Pt sedated on vent, unable to educate. Offloading surface/device: ICU bed, wedge and pillows for repositioning, will need P500 if transferred Recommended Referrals/Tests: na Discharge Recommendations for dressings: see treatment plan above
[2021-04-01] MEDS: ATORVASTATIN CALCIUM 40 MG TABLET. PO SCH (20:49)
--- NOTE | 2021-04-01 21:10 | EKG ---
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
[2021-04-02] VITALS (22 sets, daily range): BP systolic 139–208; BP diastolic 64–99
[2021-04-02] MEDS: PROPOFOL 100 ML IV PRN ×5 (03:36→20:58)
[2021-04-02] MEDS: DEXMEDETOMIDINE 400 MCG in IV NORMAL SALINE 100ML 96 ML IV PRN ×5 (03:36→21:41)
[2021-04-02] MEDS: INSULIN LISPRO 300 UNITS/3 ML VIAL. SQ SCH ×4 (06:00→18:00)
[2021-04-02] MEDS: HEPARIN for SUB-Q USE 5,000 UNIT/ML VIAL. SQ SCH ×3 (06:08→23:10)
[2021-04-02] MEDS: HALOPERIDOL LACTATE 5 MG/ML VIAL. IVP SCH ×3 (06:09→22:41)
[2021-04-02 07:01] LABS: CALCIUM 8.9 mg/dL (8.5-10.1); CREATININE 3.5 mg/dL (0.6-1.0); GFR 14.1; POTASSIUM 3.4 mmol/L (3.5-5.1)
--- NOTE | 2021-04-02 07:54 | PDOC ---
Infectious Disease Note Subjective: Subjective Pt intubated/sedated T [id number] Temperature 100 this morning Vital Signs: Vital Signs Vital Signs Date Time Temp Pulse Resp B/P (MAP) Pulse Ox O2 Delivery O2 Flow Rate FiO2 04/02/21 06:00 98 18 186/94 (124) 100 Ventilator 04/02/21 04:00 99.7 99.7 Physical Exam: PHYSICAL EXAM GENERAL: Intubated HEENT: Normocephalic, atraumatic. Anicteric. Slight bilateral periorbital edema. Neck right IJ HDC clean Trach + LUNGS: Rhonchi. HEART: S1, S2. No murmurs. ABDOMEN: Obese, soft. Bowel sounds present. Nontender, nondistended. Abdominal and pubis mons edema noted. PEG tube in place GENITOURINARY: Kern and fecal tube in place. EXTREMITIES: Edema present no cyanosis. CENTRAL NERVOUS SYSTEM: Intubated. PSYCHIATRIC: Unable to assess. Derm has pressure wounds wound pictures noted in chart. Generalized rash, PICC line February 14, right IJ HDC clean March 07 Medications: Inpatient Meds: Medications reviewed. Labs: Lab Laboratory Tests Test 04/01/21 08:00 04/01/21 12:33 04/01/21 19:17 04/02/21 00:07 O2 Saturation 98 % (92-99) Arterial Blood pH 7.43 (7.35-7.45) Arterial Blood pCO2 at Patient Temp 35 mmHg (35-46) Arterial Blood pO2 at Patient Temp 131 mmHg (75-108) Arterial Blood HCO3 23 mmol/L (21-28) Arterial Blood Base Excess -1 mmol/L (-3-3) FiO2 40% vent Glucose (Fingerstick) 151 mg/dL (70-99) 162 mg/dL (70-99) 95 mg/dL (70-99) Test 04/02/21 06:05 04/02/21 06:10 Glucose (Fingerstick) 145 mg/dL (70-99) Sodium Level 136 mmol/L (136-145) Potassium Level 3.4 mmol/L (3.5-5.1) Chloride Level 98 mmol/L (98-107) Carbon Dioxide Level 28 mmol/L (21-32) Anion Gap 10 (6-14) Blood Urea Nitrogen 19 mg/dL (7-20) Creatinine 3.5 mg/dL (0.6-1.0) Estimated GFR (Cockcroft-Gault) 14.1 Glucose Level 139 mg/dL (70-99) Calcium Level 8.9 mg/dL (8.5-10.1) Micro GRAM STAIN EVALUATION Final Final This specimen is of good quality and is acceptable for routine bacterial culture. Culture results to follow. NO ORGANISMS SEEN. SQUAMOUS EPI CELL:RARE PMN (WBCs):MODERATE Unless otherwise specified, Testing Performed by: [address] [address] For Inquires, the Physician may contact the Microbiology department at [phone] RESPIRATORY CULTURE Final Final MODERATE GRAM NEGATIVE RODS on 03/18/21 at 1120 FINAL ID= [ACINETOBACTER [email or web address].] ACINETOBACTER URSINGII. ANTIMICROBIAL SUSCEPTIBILITY Final Comment NEG SAGE 56 ACINETOBACTER URSINGII. ANTIBIOTIC RESULT INTERPRETATION AMPICILLIN/SULBACTAM <=4/2 S AMIKACIN <=16 S CEFTRIAXONE 2 S CEFTAZIDIME 16 I CEFOTAXIME 16 I CIPROFLOXACIN <=0.25 S CEFEPIME 4 S GENTAMICIN <=2 S LEVOFLOXACIN <=0.5 S RUN DATE: 03/19/21 [facility] *LIVE* PAGE 2 RUN TIME: 1120 Specimen Inquiry SPEC: [id number] PATIENT: ARIADNA BANKS [id number] (Continued) Procedure Result CONTINUED ON NEXT PAGE --- --------- RUN DATE: 03/19/21 [facility] *LIVE* PAGE 3 RUN TIME: 1120 Specimen Inquiry SPEC: [id number] PATIENT: ARIADNA BANKS [id number] (Continued) Procedure Result ANTIMICROBIAL SUSCEPTIBILITY Final (continued) MINOCYCLINE <=4 S MEROPENEM <=1 S TRIMETHOPRIM/SULFAMETHOXAZOLE <=0.5/9.5 S TOBRAMYCIN <=2 S Unless otherwise specified, Testing Performed by: [address] [address] For Inquires, the Physician may contact the Microbiology department at [phone] Culture negative Objective: Assessment: 1. Febrile illness. 2. COVID-19 infection present on date of admission, 02/06/2021. Status post remdesivir, dexamethasone. 3. Acute hypoxic respiratory failure, status post intubation. S/P Trach on 03/17 Trach cultures positive for Rock albicans and now acinebacter ursungi 4. Diabetes. 5. Diarrhea. 6. Hypertension. 7. Hyperlipidemia. 8. Anemia. 9. BOB on HD 10.UC rock albican, ua neg Plan: Plan of Care Cont Meropenem March 18 Start daptomycin, renal dosing April 02 Blood culture UA urine culture C. diff PCR negative Follow Kern maintenance protocol Wound care per wound treatment Offload Continue supportive care. Prognosis poor D/W KAITLYNN CURIEL MD Apr 02, 2021 07:54
[2021-04-02 08:08] LABS: BASE EXCESS ABG 0 mmol/L (-3-3); HCO3 ABG 23 mmol/L (21-28); PCO2 ABG 33 mmHg (35-46); PO2 ABG 116 mmHg (75-108); SAT O2 ABG 98 % (92-99)
--- NOTE | 2021-04-02 08:23 | PDOC ---
PULMONARY PROGRESS NOTES DATE: 04/02/21 TIME: 08:23 Subjective Patient did not do well with Haldol still agitated Back on Precedex Had a fever Vitals Vital Signs Date Time Temp Pulse Resp B/P (MAP) Pulse Ox O2 Delivery O2 Flow Rate FiO2 04/02/21 07:48 99 Ventilator 04/02/21 06:00 98 18 186/94 (124) 04/02/21 04:00 99.7 99.7 Lungs: Clear Cardiovascular: S1 Abdomen: Soft, Non-tender Skin: Warm Labs Laboratory Tests Test 03/31/21 09:00 03/31/21 11:33 03/31/21 17:16 03/31/21 21:17 O2 Saturation 98 % (92-99) Arterial Blood pH 7.46 (7.35-7.45) Arterial Blood pCO2 at Patient Temp 35 mmHg (35-46) Arterial Blood pO2 at Patient Temp 106 mmHg (75-108) Arterial Blood HCO3 24 mmol/L (21-28) Arterial Blood Base Excess 0 mmol/L (-3-3) FiO2 40 Glucose (Fingerstick) 155 mg/dL (70-99) 104 mg/dL (70-99) 138 mg/dL (70-99) Test 04/01/21 00:28 04/01/21 06:09 04/01/21 07:00 04/01/21 08:00 Glucose (Fingerstick) 157 mg/dL (70-99) 133 mg/dL (70-99) White Blood Count 8.4 x10^3/uL (4.0-11.0) Red Blood Count 3.17 x10^6/uL (3.50-5.40) Hemoglobin 9.4 g/dL (12.0-15.5) Hematocrit 27.9 % (36.0-47.0) Mean Corpuscular Volume 88 fL (79-100) Mean Corpuscular Hemoglobin 30 pg (25-35) Mean Corpuscular Hemoglobin Concent 34 g/dL (31-37) Red Cell Distribution Width 15.0 % (11.5-14.5) Platelet Count 294 x10^3/uL (140-400) Neutrophils (%) (Auto) 46 % (31-73) Lymphocytes (%) (Auto) 17 % (24-48) Monocytes (%) (Auto) 9 % (0-9) Eosinophils (%) (Auto) 25 % (0-3) Basophils (%) (Auto) 2 % (0-3) Neutrophils # (Auto) 3.8 x10^3/uL (1.8-7.7) Lymphocytes # (Auto) 1.4 x10^3/uL (1.0-4.8) Monocytes # (Auto) 0.8 x10^3/uL (0.0-1.1) Eosinophils # (Auto) 2.1 x10^3/uL (0.0-0.7) Basophils # (Auto) 0.2 x10^3/uL (0.0-0.2) Sodium Level 137 mmol/L (136-145) Potassium Level 3.9 mmol/L (3.5-5.1) Chloride Level 98 mmol/L (98-107) Carbon Dioxide Level 27 mmol/L (21-32) Anion Gap 12 (6-14) Blood Urea Nitrogen 34 mg/dL (7-20) Creatinine 4.8 mg/dL (0.6-1.0) Estimated GFR (Cockcroft-Gault) 9.8 Glucose Level 135 mg/dL (70-99) Calcium Level 9.1 mg/dL (8.5-10.1) O2 Saturation 98 % (92-99) Arterial Blood pH 7.43 (7.35-7.45) Arterial Blood pCO2 at Patient Temp 35 mmHg (35-46) Arterial Blood pO2 at Patient Temp 131 mmHg (75-108) Arterial Blood HCO3 23 mmol/L (21-28) Arterial Blood Base Excess -1 mmol/L (-3-3) FiO2 40% vent Test 04/01/21 12:33 04/01/21 19:17 04/02/21 00:07 04/02/21 06:05 Glucose (Fingerstick) 151 mg/dL (70-99) 162 mg/dL (70-99) 95 mg/dL (70-99) 145 mg/dL (70-99) Test 04/02/21 06:10 Sodium Level 136 mmol/L (136-145) Potassium Level 3.4 mmol/L (3.5-5.1) Chloride Level 98 mmol/L (98-107) Carbon Dioxide Level 28 mmol/L (21-32) Anion Gap 10 (6-14) Blood Urea Nitrogen 19 mg/dL (7-20) Creatinine 3.5 mg/dL (0.6-1.0) Estimated GFR (Cockcroft-Gault) 14.1 Glucose Level 139 mg/dL (70-99) Calcium Level 8.9 mg/dL (8.5-10.1) Laboratory Tests Test 04/01/21 12:33 04/01/21 19:17 04/02/21 00:07 04/02/21 06:05 Glucose (Fingerstick) 151 mg/dL (70-99) 162 mg/dL (70-99) 95 mg/dL (70-99) 145 mg/dL (70-99) Test 04/02/21 06:10 Sodium Level 136 mmol/L (136-145) Potassium Level 3.4 mmol/L (3.5-5.1) Chloride Level 98 mmol/L (98-107) Carbon Dioxide Level 28 mmol/L (21-32) Anion Gap 10 (6-14) Blood Urea Nitrogen 19 mg/dL (7-20) Creatinine 3.5 mg/dL (0.6-1.0) Estimated GFR (Cockcroft-Gault) 14.1 Glucose Level 139 mg/dL (70-99) Calcium Level 8.9 mg/dL (8.5-10.1) Medications Active Scripts Medications Dose Route/Sig Max Daily Dose Days Date Category Novolog Flexpen (Insulin Aspart) 100 Unit/1 Ml Insuln.pen 3-7 SQ TIDACHC 02/07/21 Reported Lisinopril 5 Mg Tablet 1 Tab PO DAILY 02/07/21 Reported Lantus Solostar (Insulin Glargine,Hum.rec.anlog) 100 Unit/1 Ml Insuln.pen 5 Unit SQ QHS 04/09/15 Reported Atorvastatin Calcium 40 Mg Tablet 40 Mg PO HS 04/09/15 Reported Impression . IMPRESSION: 1. Acute hypoxic respiratory failure secondary to COVID-19 viral pneumonia/acute lung injury and early acute respiratory distress syndrome. S/P intubation 02/17/21. Status post tracheostomy. 2. Nonsmoker. 3. Abnormal chest x-ray consistent with COVID-19 viral pneumonia. 4. Diabetic ketoacidosis--resolved 5. Underlying obesity contributing to hypoxia as well. 6. BOB . hemodialysis started 03/07 7. Fever, 30 ID 8. Abnormal chest x-ray with diffuse interstitial infiltrates compatible with viral pneumonia 9. [place] in the sputum is a contamination 10. Septic shoc 11. s/p lap G-tube 03/27 12. Delirium Plan . Updated 04/02 Reculture sent out Currently on daptomycin meropenem C. difficile negative Continue current support Try to titrate sedation down Hemodialysis per nephrology Nutritional support DVT GI prophylaxis updated 04/01 Patient does not do well off of sedation We will add Haldol, check EKG Attempt pressure support as tolerated Hemodialysis Chest x-ray reviewed Labs reviewed ABG noted Nutritional support Discussed with RT and RN Updated 03/31 Discussed with RN and RT try pressure support today, decrease sedation Continue current support Hemodialysis DVT GI prophylaxis Nutrition also Updated 03/30 Patient had temperature elevation yesterday defer to ID Oxygenation has improved Patient due to moved to LTAC Hemodialysis. Nephrology Nutritional support DVT prophylaxis Discussed with RN and RT MONTEZ OROPEZA MD Apr 02, 2021 08:23
[2021-04-02 09:05] LABS: FIO2 ABG 40% VENT
--- NOTE | 2021-04-02 09:06 | PDOC ---
DATE OF SERVICE DATE: 04/02/21 TIME: 09:05 SUBJECTIVE ROS On vent , sedated Had a Temp of 100 this morning UOP stable per nursing OBJECTIVE Vital Signs Vital Signs Date Time Temp Pulse Resp B/P (MAP) Pulse Ox O2 Delivery O2 Flow Rate FiO2 04/02/21 07:48 99 Ventilator 04/02/21 06:00 98 18 186/94 (124) 04/02/21 04:00 99.7 99.7 I & 0 Intake and Output 04/02/21 07:00 Intake Total 2041 ml Output Total 915 ml Balance 1126 ml Intake Oral 0 ml IV Total 1362 ml Tube Feeding 649 ml Other 30 ml Output Urine Total 815 ml Stool Total 100 ml PHYSICAL EXAM Physical Exam GENERAL: On vent HEENT: Anicteric. . Neck Trach+ LUNGS: decreased at bases HEART: S1, S2. No murmurs. ABDOMEN: Obese, soft. Bowel sounds present. GENITOURINARY: Kern and rectal tube in place. EXTREMITIES: Edema present no cyanosis. CENTRAL NERVOUS SYSTEM: awake, on vent PSYCHIATRIC: Unable to assess. DERM has pressure wounds DIAGNOSIS/ASSESSMENT Assessment & Plan BOB-ATN- was anuric , now non Oliguric - No improvement in clearance - requiring dialysis., currently on MWF schedule, No indication today Supportive care, I/O avoid nephrotoxins, Monitor for recovery .Access- temp HDC HypoNatremia - resolved stable HypoKalemia - Normal K DM 2 - Glucosuria + POA COVID 19 Pneumonia - Unvaccinated Acute Resp Failure- Intubated ; CxR 04/01 Moderate diffuse pulmonary opacities, slightly decreased compared to prior. HTN antihypertensives Anemia -avoid DOYLE 2/2 to Thrombogenic state Family History of ESRD - Per at bedside- Pt's Mom was on dialysis and sister is on Dialysis COMMENT/RELEVANT DATA Meds Current Medications Medications (Trade) Dose Ordered Sig/Pepe Start Time Stop Time Status Last Admin Dose Admin Acetaminophen (Tylenol Supp) 650 mg PRN Q6HRS PRN 02/08/21 01:45 02/17/21 10:45 DC Acetaminophen (Tylenol) 500 mg 1X PRN PRN 03/17/21 13:30 03/18/21 13:29 DC Albumin Human 100 ml @ 100 mls/hr 1X ONCE 03/30/21 15:45 03/30/21 16:44 DC 03/30/21 15:44 100 MLS/HR Albuterol Sulfate (Ventolin Hfa) 60 puff STK-MED ONCE 03/17/21 11:29 03/17/21 11:29 DC Alteplase, Recombinant (Cathflo For Central Catheter Clearance) 1 mg 1X ONCE 02/27/21 14:30 02/27/21 14:36 DC 02/27/21 15:19 1 MG Alteplase, Recombinant (Cathflo) 2 mg 1X ONCE 02/27/21 11:00 02/27/21 11:01 DC 02/27/21 11:20 2 MG Amlodipine Besylate (Norvasc) 10 mg DAILY 03/31/21 09:00 04/01/21 09:04 10 MG Atorvastatin Calcium (Lipitor) 40 mg HS 02/08/21 21:00 04/01/21 20:49 40 MG Atropine Sulfate (ATROPINE 0.5mg SYRINGE) 0.5 mg PRN Q5MIN PRN 02/16/21 12:00 Azithromycin 250 mg/Sodium Chloride 250 ml @ 250 mls/hr Q24H 02/14/21 13:30 02/18/21 14:29 DC 02/18/21 11:51 250 MLS/HR Benzonatate (Tessalon Perle) 100 mg [id number] 02/10/21 23:30 02/17/21 10:45 DC 02/16/21 22:07 100 MG Bupivacaine HCl/ Epinephrine Bitart (Sensorcain-Epi 0.5% Kit) 30 ml STK-MED ONCE 03/27/21 10:05 03/27/21 10:05 DC 03/27/21 13:12 16 ML Bupivacaine HCl/ Epinephrine Bitart (Sensorcain-Epi 0.5%-1:[id number] Mpf) 30 ml STK-MED ONCE 03/17/21 10:47 03/17/21 10:47 DC Carvedilol (Coreg) 6.25 mg BIDWMEALS 02/08/21 20:30 02/23/21 15:50 DC 02/23/21 08:06 6.25 MG Cefazolin Sodium/ Dextrose (Ancef 2gm Premix) 2 gm STK-MED ONCE 03/23/21 13:00 03/24/21 11:58 DC Ceftriaxone Sodium (Rocephin) 1 gm Q24H 02/14/21 13:00 02/23/21 07:34 DC 02/22/21 12:42 1 GM Cellulose (Surgicel Fibrillar 1x2) 1 each STK-MED ONCE 03/17/21 10:47 03/17/21 10:47 DC 03/17/21 11:56 1 EACH Daptomycin 480 mg/ Sodium Chloride 50 ml @ 100 mls/hr QMWF 03/23/21 16:00 03/26/21 10:29 DC 03/25/21 19:52 100 MLS/HR Daptomycin 500 mg/ Sodium Chloride 50 ml @ 100 mls/hr Q48H 04/02/21 10:00 Dexamethasone Sodium Phosphate (Decadron) 2 mg 1X ONCE 02/27/21 09:00 02/26/21 07:15 DC Dexmedetomidine HCl 400 mcg/ Sodium Chloride 100 ml @ 0 mls/hr CONT PRN 02/27/21 09:45 04/02/21 03:36 23.2 MLS/HR Dextrose (Dextrose 50%-Water Syringe) 12.5 gm PRN Q15MIN PRN 03/01/21 13:00 03/01/21 12:55 12.5 GM Diphenhydramine HCl (Benadryl) 25 mg 1X PRN PRN 03/17/21 13:30 03/18/21 13:29 DC Docusate Sodium (Colace Solution) 100 mg BID 02/23/21 12:00 04/01/21 20:49 100 MG Docusate Sodium (Colace) 100 mg PRN DAILY PRN 02/07/21 08:45 02/23/21 10:47 DC Enalaprilat (Vasotec Inj) 0.625 mg Q6HRS 02/08/21 16:15 02/09/21 16:01 DC 02/09/21 13:42 0.625 MG Enoxaparin Sodium (Lovenox 30mg Syringe) 30 mg Q24H 03/08/21 09:00 03/12/21 15:38 DC 03/12/21 09:04 30 MG Enoxaparin Sodium (Lovenox 40mg Syringe) 40 mg BID 02/09/21 09:00 03/08/21 13:56 DC 03/08/21 08:26 40 MG Enoxaparin Sodium (Lovenox Per Pharmacy Prophylaxis Dosing) 1 each PRN DAILY PRN 02/09/21 06:45 03/12/21 15:38 DC Ephedrine Sulfate (ePHEDrine PF IN SALINE SYRINGE) 50 mg STK-MED ONCE 03/17/21 10:56 03/17/21 10:56 DC Famotidine (Pepcid Vial) 20 mg DAILY 03/10/21 09:00 04/01/21 09:03 20 MG Fentanyl Citrate (Fentanyl 2ml Vial) 100 mcg STK-MED ONCE 03/27/21 13:18 03/27/21 13:18 DC Fluconazole/ Sodium Chloride 100 ml @ 100 mls/hr Q24H 03/07/21 09:00 03/17/21 08:03 DC 03/16/21 08:29 100 MLS/HR Furosemide (Lasix) 40 mg 1X ONCE 03/29/21 15:00 03/29/21 15:02 DC 03/29/21 15:22 40 MG Glycerin/ Hypromellose/ Polyethylene (Artificial Tears) 1 drop PRN Q1HR PRN 02/17/21 10:00 Glycopyrrolate (Robinul) 1 mg STK-MED ONCE 03/27/21 14:07 03/27/21 14:07 DC Guaifenesin (Robitussin Dm) 10 ml PRN Q6HRS PRN 02/10/21 23:30 02/16/21 09:06 10 ML Haloperidol Lactate (Haldol Inj) 5 mg Q8HRS 04/01/21 11:30 04/02/21 06:09 5 MG Heparin Sodium (Porcine) (Heparin Sodium) 5,000 unit Q8HRS 03/13/21 06:00 04/02/21 06:08 5,000 UNIT Hydralazine HCl (Apresoline Inj) 10 mg PRN Q4HRS PRN 02/11/21 12:15 04/01/21 00:50 10 MG Hydromorphone HCl (Dilaudid) 0.5 mg PRN Q10MIN PRN 03/27/21 06:00 03/28/21 05:59 DC Info (PHARMACY MONITORING -- do not chart) 1 each PRN DAILY PRN 04/01/21 13:30 Insulin Glargine (Lantus Syringe) 5 unit BID 03/06/21 09:00 04/01/21 20:50 5 UNIT Insulin Human Lispro (HumaLOG) 12 units Q6HRS 02/20/21 12:00 02/28/21 15:38 DC 02/27/21 05:41 12 UNITS Insulin Human Regular 100 ml @ 10 mls/hr 1X ONCE 02/07/21 06:30 02/07/21 16:54 DC 02/07/21 09:31 6.5 MLS/HR Insulin Human Regular 100 unit/ Sodium Chloride 101 ml @ 0 mls/hr CONT PRN PRN 02/07/21 06:00 02/07/21 16:54 DC Labetalol HCl (Normodyne Iv Push) 10 mg PRN Q2HR PRN 02/08/21 00:45 03/26/21 21:14 10 MG Lactobacillus Rhamnosus (Culturelle) 1 cap BID 02/16/21 21:00 02/17/21 10:45 DC 02/16/21 22:02 1 CAP Lidocaine HCl (Buffered Lidocaine 1%) 3 ml STK-MED ONCE 03/07/21 13:25 03/07/21 13:25 DC Linezolid (Zyvox) 600 mg BID 03/05/21 09:00 03/12/21 07:00 DC 03/11/21 20:33 600 MG Linezolid/Dextrose 300 ml @ 300 mls/hr Q12HR 03/16/21 10:00 03/18/21 07:37 DC 03/17/21 21:44 300 MLS/HR Lisinopril (Prinivil) 20 mg DAILY 02/17/21 09:00 03/09/21 10:43 DC 02/27/21 09:10 20 MG Lorazepam (Ativan Inj) 0.5 mg PRN Q6HRS PRN 02/08/21 10:00 04/01/21 15:32 0.5 MG Meropenem 1 gm/ Sodium Chloride 100 ml @ 200 mls/hr Q24H 03/18/21 17:00 04/01/21 17:26 200 MLS/HR Methylprednisolone Sodium Succinate (SOLU-Medrol 125MG VIAL) 80 mg Q8HRS 02/25/21 09:00 02/26/21 07:09 DC 02/26/21 05:52 80 MG Metoclopramide HCl (Reglan Vial) 10 mg PRN Q6HRS PRN 02/08/21 00:45 02/12/21 15:51 10 MG Micafungin Sodium 100 mg/Dextrose 100 ml @ 100 mls/hr Q24H 03/21/21 18:00 03/25/21 10:27 DC 03/24/21 16:36 100 MLS/HR Midazolam HCl 100 ml @ 0 mls/hr CONT PRN 02/17/21 10:00 03/20/21 17:18 5 MLS/HR Morphine Sulfate (Morphine Sulfate) 1 mg PRN Q10MIN PRN 03/27/21 06:00 03/28/21 05:59 DC Multi-Ingred Cream/Lotion/Oil/ Oint (Artificial Tears Eye Ointment) 1 reji PRN Q1HR PRN 03/17/21 17:30 03/20/21 15:55 1 REJI Multivitamins/ Minerals Therapeutic (Centrum Multivit-Mineral Liq) 5 ml DAILY 03/14/21 09:00 04/01/21 09:03 5 ML Naloxone HCl (Narcan) 0.4 mg PRN Q2MIN PRN 03/27/21 14:30 Neostigmine Floyd (Neostigmine Methylsulfate) 5 mg STK-MED ONCE 03/27/21 14:06 03/27/21 14:07 DC Norepinephrine Bitartrate 8 mg/ Dextrose 258 ml @ 21.711 mls/ hr CONT PRN 03/06/21 13:45 03/19/21 18:45 23.3 MLS/HR Nystatin (Nystop) 1 reji BID 03/02/21 21:00 04/01/21 20:53 1 REJI Ondansetron HCl (Zofran Odt) 4 mg 1X ONCE 02/06/21 23:30 02/06/21 23:31 DC 02/06/21 23:57 4 MG Ondansetron HCl (Zofran) 4 mg 1X ONCE 02/07/21 20:00 02/07/21 20:07 DC 02/07/21 20:06 4 MG Phenylephrine HCl (PHENYLEPHRINE in 0.9% NACL PF) 1 mg STK-MED ONCE 03/27/21 13:46 03/27/21 13:46 DC Piperacillin Sod/ Tazobactam Sod (Zosyn Per Pharmacy) 1 each PRN DAILY PRN 02/23/21 07:45 03/17/21 10:04 DC Piperacillin Sod/ Tazobactam Sod 2.25 gm/Sodium Chloride 50 ml @ 100 mls/hr Q8HRS 03/07/21 14:00 03/17/21 08:03 DC 03/17/21 05:58 100 MLS/HR Piperacillin Sod/ Tazobactam Sod 3.375 gm/Sodium Chloride 50 ml @ 100 mls/hr Q6HRS 03/14/21 18:00 Cancel Piperacillin Sod/ Tazobactam Sod 4.5 gm/Sodium Chloride 100 ml @ 200 mls/hr Q6HRS 02/23/21 08:00 03/07/21 08:18 DC 03/07/21 06:12 200 MLS/HR Potassium Chloride/Water 100 ml @ 100 mls/hr PRN Q1HR PRN 02/07/21 06:00 02/07/21 16:54 DC Potassium Chloride (Klor-Con) 40 meq 1X ONCE 02/13/21 12:00 02/13/21 12:01 DC 02/13/21 13:21 40 MEQ Prochlorperazine Edisylate (Compazine) 5 mg PACU PRN PRN 03/27/21 06:00 03/28/21 05:59 DC Propofol (Diprivan) 200 mg STK-MED ONCE 03/27/21 12:02 03/27/21 12:03 DC Remdesivir 100 mg/ Sodium Chloride 230 ml @ 460 mls/hr Q24H 02/15/21 12:00 02/18/21 12:29 DC 02/18/21 11:52 460 MLS/HR Remdesivir 200 mg/ Sodium Chloride 210 ml @ 210 mls/hr 1X ONCE 02/11/21 13:00 02/12/21 11:55 DC 02/11/21 14:33 210 MLS/HR Ringer's Solution 1,000 ml @ 30 mls/hr Q24H 03/27/21 06:00 03/27/21 17:59 DC Rocuronium Floyd (Zemuron) 50 mg STK-MED ONCE 03/27/21 13:16 03/27/21 13:17 DC Sennosides (Senna) 17.2 mg PRN BID PRN 02/07/21 08:45 02/22/21 08:29 17.2 MG Sevoflurane (Ultane) 60 ml STK-MED ONCE 03/27/21 14:19 03/27/21 14:20 DC Sodium Chloride 1,000 ml @ 400 mls/hr Q2H30M PRN 04/01/21 13:30 04/02/21 01:29 DC Sodium Chloride (Normal Saline Flush) 3 ml QSHIFT PRN 03/27/21 14:30 Succinylcholine Chloride (Anectine) 200 mg STK-MED ONCE 02/17/21 10:00 02/25/21 08:40 DC Vancomycin HCl (Vanco Per Pharmacy) 1 each PRN DAILY PRN 03/04/21 18:30 03/05/21 08:59 DC 03/04/21 19:47 1 EACH Vancomycin HCl (Vancomycin Trough Level) 1 each 1X ONCE 03/06/21 07:00 03/06/21 07:01 Cancel Vancomycin HCl 1.5 gm/Sodium Chloride 500 ml @ 250 mls/hr Q12H 03/05/21 07:30 03/05/21 08:58 DC Vancomycin HCl 1 gm/Sodium Chloride 250 ml @ 250 mls/hr Q12H 03/04/21 20:00 UNV Vancomycin HCl 2 gm/Sodium Chloride 500 ml @ 250 mls/hr 1X ONCE 03/04/21 19:00 03/04/21 20:59 DC 03/04/21 19:26 250 MLS/HR Vecuronium Floyd (Norcuron Bolus) 6 mg PRN Q2HRS PRN 03/06/21 14:30 03/16/21 10:16 5 MG Vitamin A/Vitamin D (Vitamin A & D Ointment) 1 reji PRN Q1HR PRN 03/10/21 01:45 03/20/21 09:34 1 REJI Lab Laboratory Tests Test 04/01/21 12:33 04/01/21 19:17 04/02/21 00:07 04/02/21 06:05 Glucose (Fingerstick) 151 mg/dL (70-99) 162 mg/dL (70-99) 95 mg/dL (70-99) 145 mg/dL (70-99) Test 04/02/21 06:10 Sodium Level 136 mmol/L (136-145) Potassium Level 3.4 mmol/L (3.5-5.1) Chloride Level 98 mmol/L (98-107) Carbon Dioxide Level 28 mmol/L (21-32) Anion Gap 10 (6-14) Blood Urea Nitrogen 19 mg/dL (7-20) Creatinine 3.5 mg/dL (0.6-1.0) Estimated GFR (Cockcroft-Gault) 14.1 Glucose Level 139 mg/dL (70-99) Calcium Level 8.9 mg/dL (8.5-10.1) Results All relevant outside records, renal labs, imaging studies, telemetry/EKG's were reviewed. Justicifation of Admission Dx: Justifications for Admission: Justification of Admission Dx: N/A GIGI CARMEN MD Apr 02, 2021 09:06
[2021-04-02] MEDS: INSULIN GLARGINE SYRINGE. SQ SCH ×2 (09:56→20:57)
[2021-04-02] MEDS: DOCUSATE 100 MG/10 ML SOLUTION. PO SCH ×2 (09:56→20:57)
[2021-04-02] MEDS: NYSTATIN TOPICAL POWDER 15GM BOTTLE. TP SCH ×2 (09:57→20:58)
[2021-04-02] MEDS: MULTIVITAMINS,THERAPEUTIC 5 ML ORAL LIQUID. PEG SCH (09:57)
[2021-04-02] MEDS: FAMOTIDINE 20 MG/2 ML VIAL IVP SCH (09:57)
[2021-04-02] MEDS: DAPTOmycin (GENERIC) IVPB 500 MG in IV NORMAL SALINE 50ML 50 ML IV SCH (09:58)
--- NOTE | 2021-04-02 10:03 | PDOC ---
[facility] PROGRESS NOTE Date of Service DOS: DATE: 04/02/21 TIME: 10:01 Chief Complaint Chief Complaint CC: Covid-19 DKA Hypotension Nausea Vomiting Combined metabolic and respiratory acidosis Acute electrolyte derangementhyponatremia, hypochloremia due to volume depletion Hyperglycemia BOB due to ATN, requiring dialysis Erythrocytosis Candiduria Sacral decubitus ulcer S/P Trach on (03/17/21) Trach cultures positive for [place] albicans and now acinebacter ursungi Patient febrile morning of 04/02. Adding daptomycin per infectious disease. History of Present Illness History of Present Illness Ms Borges is a 46 year old female who presented with nausea/vomiting since 7 AM 02/06/2021 in the morning. Patient stated that her recently tested positive for Covid. She states that he "coughed in my face because he thought it was funny." She reports subjective fevers and chills and nausea/vomiting. Denies sore throat, cough, shortness of breath. No chest pain. Does have some upper abdominal discomfort after vomiting, that she attributes to muscular strain. She was not vaccinated for Covid. 02/08: No acute events overnight. Patient seen and examined bedside and resting comfortably. Continues to complain of nausea not able to tolerate any diet at this time. Saturating 98% on room air. Patient's chart, labs, images were reviewed and discussed with RN 02/09: Afebrile, currently breathing on room air. Still with complaints of nausea and vomiting x3 today. States that she has history of similar symptoms that have been mildly improved with IV Dilaudid. 02/10: Patient febrile today with T-max 102.2 F. She still admits to nausea, denies any further vomiting. We will continue to provide supportive care and monitor for any recurrent fevers overnight. Patient continues to improve may discharge tomorrow to continue self-isolation. 02/11: Febrile overnight, T-max 102.3 F. She did become hypoxic overnight, currently breathing on 4 L nasal cannula. Also admits to associated vomiting or diarrhea overnight. Discussed with RN, will initiate remdesivir and closely monitor LFTs. IV Decadron, and prophylactic antibiotics. 02/12: Low-grade fever overnight, T-max 99.7. Currently breathing on room air. Will discontinue remdesivir, steroids, and antibiotics; will observe overnight. Still with complaints of vomiting x1 and diarrhea. We will continue to provide supportive care and hope to discharge in the next day or so. 02/13: Afebrile. Still complains of intermittent diarrhea. At the time of my evaluation she was breathing on 6 L nasal cannula; this is somewhat misleading as patient states that she did not feel short of breath but was placed on 6 L by nursing staff overnight. 02/14: Afebrile, currently breathing on 8 L nasal cannula. There has been some misleading documentation, chart oxygen this patient is requiring. Discussed with RN, will resume remdesivir to complete total of 5 days. Continue to monitor LFTs. Will add steroids, Rocephin, and azithromycin. 02/15: Afebrile. Became much more hypoxic overnight, requiring BiPAP. At the time of my evaluation she is still breathing on BiPAP. Consultation was placed to pulmonology. Had discussion with Dr. Myrick about initiating Tocilizumab 02/16: No acute events overnight. Patient becoming more hypoxic saturating 94% and requiring BiPAP. Patient will be transferred to the ICU at this time. For worsening clinical status. Discussed with pulmonary. Patient's chart, labs, images were reviewed and discussed with RN 02/17: Transferred to ICU yesterday afternoon. Seen and examined at bedside she remains on 100% FiO2 on BiPAP. Respirations do appear somewhat labored. Suspect intubation may be impending. We will closely monitor. Increase lisinopril to 20 today. 02/18: Patient required intubation yesterday afternoon. Saw and examined this morning. She is intubated and sedated. Increase insulin today. Covid protocol ordered. Wean as tolerated. Plan of care discussed with bedside nurse. 02/19: Bedside. She remains intubated and sedated. Continue Covid protocol. Wean oxygen sedation as tolerated. Pulmonary following. Plan of care discussed with bedside RN. 02/20: Patient seen and examined at bedside. She remains intubated and sedated. No major clinical changes. Continue current treatment. Pulmonary following. Plan of care discussed with bedside RN. 02/21: Patient seen and examined at bedside. Remains intubated and sedated date and admission clinical changes. Increase free water flushes today due to hypernatremia. Plan of care discussed with bedside nurse. 02/22: Patient seen and examined at bedside. O2 requirement actually improving, although remains intubated. Possible SBT in the coming days. Hypernatremia improving. Plan of care discussed bedside RN. 02/23: Patient remains in ICU on ventilator with FiO2 100%, PEEP 7. Repeat chest x-ray yesterday showed diffuse bilateral pulmonary opacities with no interval improvement. Will discontinue Rocephin and initiate Zosyn. We will continue IV steroids for a full 10-day course 02/24: Afebrile. On vent with FiO2 40%, PEEP 6. Her Coreg has been held due to persistent bradycardia. No documented history of systolic heart failure or previous echocardiogram. Will need to obtain echocardiogram prior to discharge. Continue IV steroids and antibiotics. 02/25: Afebrile. Remains ventilated with FiO2 45%, PEEP 6. Chest x-ray today showed slight improvement of the pulmonary infiltrates, no pneumothorax. Completed 10-day course of IV Decadron. Will initiate slow Solu-Medrol taper. Continue IV Zosyn. Continue supportive care. 02/26: Afebrile. On vent with FiO2 45%, PEEP 6. Completed 10 days of IV Decadron. Will continue IV Zosyn. Continue supportive care. Critical care time 30 minutes spent reviewing charts, reviewing imaging, reviewing labs, discussion with RN. 02/27: Afebrile. On vent with FiO2 45%, PEEP 6. Completed 10 days of steroids and completed remdesivir. Continue with IV Zosyn. CPAP trial yesterday. Continue NG tube and supportive care. 02/28:. Patient remains on vent with FiO2 40%, PEEP 5. Afebrile. Completed steroids and remdesivir. Some noted hypoglycemia overnight, will de-escalate basal insulin. Continue IV Zosyn. Ventilator management per pulmonology. Continue NG tube and supportive care. 03/01: On vent with FiO2 40%, PEEP 5. Afebrile. Completed steroids and remdesivir. Blood glucose well controlled. Continue empiric antibiotics with Zosyn. Ventilator management per pulmonology. Continue NG tube and supportive care. 03/02: No acute events overnight. Patient hypotensive the morning due to oversedation. Will wean off sedation and keep antihypertensive medications on board. Currently saturating 100% on vent settings of 18/450/40/5. Will attempt spontaneous breathing trial today to see how patient does. 03/03: No acute events overnight. Patient saturating 98% on vent settings of 18/450/40/5. Will defer spontaneous breathing trials to pulmonary at this time. Patient's chart, labs, images were reviewed and discussed with RN 03/04: No acute events overnight. Patient saturating 9 9% on vent settings of 18/450/30/5. Patient currently is unable to tolerate weaning. Per pulmonary. Patient's chart, labs, images were reviewed and discussed with RN 03/05: No acute events overnight. Patient is saturating 97% on vent settings of 18/450/55/5. Her FiO2 needs to be increased due to abnormal ABG with 7.3 //24. Patient's chart, labs, images were reviewed and discussed with RN 03/06: No acute events overnight. Patient saturating 94% on vent settings of 18/450/55/5. Chest x-ray showing increase in pulmonary infiltrates. Wound care is consulted for decubitus ulcer patient's chart, labs, images were reviewed and discussed with RN 03/07: No acute events overnight. Patient saturating 94% on vent settings of 20/450/70/8. Patient now heading into renal failure with her creatinine bumped up from 1.5-4.2. Decreased urine output. Plan for hemodialysis today and temporary catheter placement and nephrology is consulted. 03/08: No acute events overnight. Patient did have a nausea vomiting episode and tube feeds were held. KUB repeat shows NG tube still in the stomach. Will resume tube feeds at trickle and advance to goal today. Will start hemodialysis soon. 03/09: Seen on vent 20/450/60%/8. ABG 7.2 WBC 11.4, Hb 7.4, platelets 188, NA 131, K4.9, BUN 48, CR 51, glucose 199, phosphorus 7.9, mag 2.2, AST 265 ALT 219, albumin 1.1. Chest radiograph appears unchanged from prior. Dialysis x1 today 03/10: Afebrile. Seen on vent, 20/450/60/7 with ABG 7.3 . Tolerated dialysis well on 03/09. LFTs similar. 03/11: Afebrile. Seen on vent, sedated. Still requiring Levophed for BP support. WBC 16.7, Hb 8.1, NA 130, ABG 7.3 on 55% FiO2 PEEP 6. On Zosyn and Zyvox Diflucan. Dialysis today 03/12: Afebrile. Still requiring Levophed for BP support sedated with Versed febrile Precedex. WBC 16.1, Hb 8.5, platelets 185, NA 133. Trach plan tentatively 03/17. O2 saturations 93% on 50% FiO2 PEEP 6. ABG 7. On Zosyn and Zyvox Diflucan. 03/13: Afebrile. Still on Levophed for BP support lightly sedated. 7. on 45% FiO2. Plan for dialysis today. On Zosyn and Zyvox Diflucan. More swollen today. 03/14: Afebrile. Weaning down off Levophed. WBC 14.9 NA 132. O2 saturations 92% on 45% FiO2 PEEP 5. Afebrile. O2 saturations 91% on FiO2 45% PEEP 6. Continued on Zosyn and Zyvox Diflucan. Tentative trach planned 03/17/2021 CC time 31 minutes 03/16/21: Patient seen and examined in ICU. Periorbital as well as upper and lower extremity edema noted. OG feed running at 30cc/hr. Still on vent on pressure control with a rate of 24 with 45% FiO2. Patient has rectal bag. Currently she has 98% O2 sat. Currently sedated with Dexmedetomidine, Propofol, Versed, and Fentanyl. Discussed with RN. Chart reviewed. 03/17/21: Patient was seen and examined in the ICU today. Periorbital edema as well as abdominal and mons pubis edema was noted. Patient still on vent on pressure control with Fi02 of 45% plus 6 PEEP. Patient had rectal bag. Currently sedated on Dexmedetomidine, Propofol, Versed, and Fentanyl. Discussed with RN. Chart reviewed. 03/18/21: Patient seen and examined in ICU. On vent via trach that was placed yesterday. Vent settings are Pressure Control of 40 with FiO2 of 45% and 6 PEEP. Trach clean and dry. Orbital swelling still present. Pupils are sluggish. Patient on TPN running at 30cc/hr. Kern to bedside and rectal bag in place. Current O2 sat at 94%. Sedated on Dexmedetomidine, Propofol, Versed, and Fentanyl. Discussed with RN. Chart reviewed. 03/19/21: Patient was seen and examined in the ICU today. Currently on vent via trach on pressure control of 42, rate of 24, FiO2 of 45%, and 6 PEEP. O2 sat is at 97% while patient is being examined. Trach is clean and dry. PICC line is in place on right arm. Periorbital swelling has decreased slightly since examined yesterday. Patient is sedated on Dexmedetomidine, Propofol, Versed, and Fentanyl. Discussed with RN. Chart reviewed. 03/20/21: Patient seen and examined in the ICU. Periorbital edema is slightly decreased since yesterday. O2 sat while being examined was 93%. NG tube in place and running at 30cc/hr. Patient on vent via trach on pressure control of 40 with FiO2 of 45 and rate of 24. Sedated on Dexmedetomidine, Propofol, Versed, and Fentanyl. PICC line in place. Kern to bedside. Rectal bag present. Discussed with RN. Chart reviewed. 03/21/21: Patient was seen and examined in the ICU today. She was semi-sedated.. She was on Dexmedetomidine and Fentanyl. We are holding the Propofol. Her eyes were periodically open but she was not making meaningful eye contact or tracking. On vent via trach with pressure control of 40 and FiO2 at 45. Rate was 24. PEEP was 5. Trach was clean and dry. While being examined, her O2 sat was 94%. Rectal bag and Kern to bedside in place. NG tube in place and feeding at 30cc/hr. IV fluids still running. Levophed has been stopped. Discussed with RN. Chart reviewed. 03/22/21: Patient was seen and examined in the ICU. She was semi-sedated on Propofol and Dexmedetomidine. Her eyes were open but she did not make meaningful eye contact. Her blood pressure was elevated (198/102) while being examined and she had just been given hydralazine to lower it. There are plans to place a PEG tube tomorrow. Currently on vent via trach on pressure control of 40 with FiO2 of 45%, 5 PEEP, and a rate of 24. Current O2 sat is 98%. She is feeding through an NG tube at 30cc/hr. Rectal bag and Kern to bedside present. SCDs on patient for DVT prophylaxis. She did not do her daily dialysis today but the plan is to start back on that tomorrow. Discussed with RN. Chart reviewed. 03/23/2021: Patient remains in ICU on ventilator. FiO2 40%, PEEP 5. Trach cultures positive for [place] albicans and acinebacter ursungi. We will contin ue treatment with IV antibiotics and micafungin, per ID. HD per nephrology. Plans for PEG tube placement today. 30 minutes critical care time was spent reviewing charts, reviewing labs, reviewing imaging, discussion with RN. 03/24/2021: Afebrile. On vent with FiO2 45%, PEEP 5. Had attempted PEG placement per GI yesterday, but unable to locate safe path for PEG; will consider surgical opinion. Once PEG is in place she should be stable for LTAC transfer when accepted. Continue antibiotics, per ID. 30 minutes critical care time was spent reviewing charts, reviewing labs, reviewing imaging, discussion with RN. 03/25/2021: Febrile overnight with T-max 101.5 F. On vent with FiO2 45%, PEEP 5. Surgery has been consulted with tentative plans for laparoscopic versus open gastrostomy placement tomorrow. Trach cultures positive for [place] albicans and now acinebacter ursungi; will continue antibiotic management, per ID. Hemodialysis, per nephrology. Patient needing LTAC placement, but currently without benefits. clothing worker following for discharge planning. Critical care time 30 minutes spent reviewing charts, reviewing labs, reviewing imaging, discussion with RN. 03/26/2021: Febrile today with T-max 100.5 F. Awake on vent with FiO2 45%, PEEP 5. When I ask if she remembers any she nods. G-tube placement scheduled for tomorrow, per general surgery. Chest x-ray today showed slight interval increase in diffuse infiltrate. Continue antibiotic management, per ID. Hemodialysis per nephrology. Reportedly did not tolerate CPAP trial this morning. clothing worker following for LTAC placement. Critical care time 30 minutes spent reviewing charts, reviewing labs, reviewing imaging, discussion with RN. 03/27/2021: On vent with FiO2 45%, PEEP 5. Afebrile today. Continue treatment of acute renal failure requiring HD, per nephrology. Monitor kidney function for recovery. G-tube placement scheduled for today, per general surgery. Likely LTAC placement soon, but this is been a difficult as she is self-pay without benefits; social media specialist following. Critical care time 30 minutes spent reviewing charts, reviewing labs, reviewing imaging, discussion with RN. 03/28/2021: Afebrile. On vent with FiO2 40%, PEEP 5. Had laparoscopic gastrostomy tube placed yesterday, per general surgery. Continue treatment of acute renal failure requiring HD, per nephrology. Continue IV antibiotics, per ID. Likely LTAC placement soon, but this is been a difficult as she is self-pay without benefits; social media specialist following. Critical care time 30 minutes spent reviewing charts, reviewing labs, reviewing imaging, discussion with RN. 03/29/2021: Afebrile. On vent with FiO2 45%, PEEP 5. S/P laparoscopic gastrostomy tube; tube feeds running. HD, per nephrology. Continue meropenem, per ID. Anticipate LTAC placement soon now that PEG has being placed; social media specialist helping in these regards. Critical care time 30 minutes spent reviewing charts, reviewing labs, reviewing imaging, discussion with RN. 03/30 No major events or clinical changes overnight. Patient evaluated at bedside this morning on trach and G-tube. Tolerating these well. Has been working on insurance for patient for placement as she will need long-term care. Guarded prognosis. Plan of care discussed with bedside nurse. 03/31 No major clinical changes. Remains trached. Sedated. Continue current plan. 04/01 No changes. Patient resting in bed when evaluated sedated. is supposed to be working on insurance for placement for the patient. Otherwise no changes. 04/02 Patient febrile overnight, daptomycin added this morning per infectious disease. Otherwise no major clinical changes. Awaiting insurance. Infectious disease, pulmonary and renal following. Plan of care discussed with bedside RN. Vitals/I&O Vitals/I&O: Vital Signs Date Time Temp Pulse Resp B/P (MAP) Pulse Ox O2 Delivery O2 Flow Rate FiO2 04/02/21 09:56 98 154/94 04/02/21 07:48 99 Ventilator 04/02/21 06:00 18 04/02/21 04:00 99.7 99.7 I & O 04/01/21 04/01/21 04/02/21 15:00 23:00 07:00 Intake Total 999 ml 1042 ml Output Total 125 ml 435 ml 355 ml Balance -125 ml 564 ml 687 ml Physical Exam Physical Exam: GENERAL: Intubated HEENT: Normocephalic, atraumatic. Anicteric. Slight bilateral periorbital edema. Neck right IJ HDC clean Trach + LUNGS: Rhonchi. HEART: S1, S2. No murmurs. ABDOMEN: Obese, soft. Bowel sounds present. Nontender, nondistended. Abdominal and pubis mons edema noted. PEG tube in place GENITOURINARY: Kern and fecal tube in place. EXTREMITIES: Edema present no cyanosis. CENTRAL NERVOUS SYSTEM: Intubated. PSYCHIATRIC: Unable to assess. Derm has pressure wounds wound pictures noted in chart. Generalized rash, PICC line February 14, right IJ HDC clean March 07 General: No acute distress, Other (sedated) Heart: Regular rate, Normal S1, Normal S2 Lungs: Clear Abdomen: Soft, Other (G-tube in place) Extremities: Other (ANASARCA) Skin: No rashes, No significant lesion Labs Labs: Laboratory Tests Test 04/01/21 12:33 04/01/21 19:17 04/02/21 00:07 04/02/21 06:05 Glucose (Fingerstick) 151 mg/dL (70-99) 162 mg/dL (70-99) 95 mg/dL (70-99) 145 mg/dL (70-99) Test 04/02/21 06:10 04/02/21 08:00 Sodium Level 136 mmol/L (136-145) Potassium Level 3.4 mmol/L (3.5-5.1) Chloride Level 98 mmol/L (98-107) Carbon Dioxide Level 28 mmol/L (21-32) Anion Gap 10 (6-14) Blood Urea Nitrogen 19 mg/dL (7-20) Creatinine 3.5 mg/dL (0.6-1.0) Estimated GFR (Cockcroft-Gault) 14.1 Glucose Level 139 mg/dL (70-99) Calcium Level 8.9 mg/dL (8.5-10.1) O2 Saturation 98 % (92-99) Arterial Blood pH 7.47 (7.35-7.45) Arterial Blood pCO2 at Patient Temp 33 mmHg (35-46) Arterial Blood pO2 at Patient Temp 116 mmHg (75-108) Arterial Blood HCO3 23 mmol/L (21-28) Arterial Blood Base Excess 0 mmol/L (-3-3) FiO2 40% vent Assessment and Plan Assessmemt and Plan Problems Medical Problems: (1) Ketoacidosis Status: Acute Comment Review of Relevant I have reviewed the following items mazin (where applicable) has been applied. Medications: Current Medications Medications (Trade) Dose Ordered Sig/Pepe Route PRN Reason Start Time Stop Time Status Last Admin Dose Admin Haloperidol Lactate (Haldol Inj) 5 mg Q8HRS IVP 04/01/21 11:30 04/02/21 06:09 Daptomycin 500 mg/ Sodium Chloride 50 ml @ 100 mls/hr Q48H IV 04/02/21 10:00 04/02/21 09:58 Justifications for Admission Other Justification LEO DELGADO MD Apr 02, 2021 10:02
--- NOTE | 2021-04-02 10:56 | NUR ---
SS following up with discharge planning. SS reviewed pt chart and discussed with pt RN. Pt is currently on the vent at 40%. COVID19 recovered. G tube and trach in place. Pt on IV Meropenem and IV Daptomycin. Temp this morning. Pt on Sub Q Heparin, Fentanyl, Precedex, and Propofol. Self pay. Med Assist following and currently awaiting pt's spouse to produce two more needed documents for Medicaid and Disability application. Pt needing LTACH but has no benefits at this time. SS will continue to follow for discharge planning.
[2021-04-02 12:08] LABS: BILIRUBIN,URINE NEGATIVE (NEG); CLARITY,URINE CLEAR; COLOR,URINE YELLOW; NITRITE,URINE NEGATIVE (NEG); PROTEIN,URINE 100 mg/dL (NEG-TRACE); UROBILINOGEN,URINE 0.2 mg/dL (0.2 mg/dL)
[2021-04-02 12:20] LABS: BACTERIA,URINE FEW /HPF (0-FEW); RBC,URINE 0 /HPF (0-2); YEAST,URINE PRESENT /HPF
[2021-04-02] MEDS: MEROPENEM 1 GM in IV NORMAL SALINE 100ML 100 ML IV SCH (16:31)
[2021-04-02] MEDS: ACETAMINOPHEN 650 MG/20.3 ML SOLUTION. PEG PRN (18:06)
[2021-04-02] MEDS: hydrALAZINE 20 MG/ML VIAL. IVP PRN (18:06)
[2021-04-02] MEDS: ATORVASTATIN CALCIUM 40 MG TABLET. PO SCH (20:57)
[2021-04-03] VITALS (24 sets, daily range): BP systolic 81–210; BP diastolic 46–102
[2021-04-03] MEDS: INSULIN LISPRO 300 UNITS/3 ML VIAL. SQ SCH ×5 (00:43→23:44)
[2021-04-03] MEDS: fentaNYL HIGH DOSE PCA 55 ML IV PRN (01:21)
[2021-04-03] MEDS: DEXMEDETOMIDINE 400 MCG in IV NORMAL SALINE 100ML 96 ML IV PRN ×11 (01:23→23:45)
[2021-04-03] MEDS: PROPOFOL 100 ML IV PRN ×6 (02:06→23:46)
[2021-04-03] MEDS: HALOPERIDOL LACTATE 5 MG/ML VIAL. IVP SCH ×3 (05:15→21:22)
[2021-04-03] MEDS: HEPARIN for SUB-Q USE 5,000 UNIT/ML VIAL. SQ SCH ×3 (05:19→21:23)
[2021-04-03 06:34] LABS: CALCIUM 9.2 mg/dL (8.5-10.1); CREATININE 4.3 mg/dL (0.6-1.0); GFR 11.1; POTASSIUM 3.1 mmol/L (3.5-5.1)
[2021-04-03] MEDS ORDERED: DIALYSIS PATIENT. MC PRN (08:15)
[2021-04-03] MEDS ORDERED: IV NORMAL SALINE 1000ML BAG 1,000 ML IV PRN ×2 (08:15)
--- NOTE | 2021-04-03 08:36 | PDOC ---
PULMONARY PROGRESS NOTES DATE: 04/03/21 TIME: 08:36 Subjective Patient currently undergoing hemodialysis, sedated, on assist control ventilator Vitals Vital Signs Date Time Temp Pulse Resp B/P (MAP) Pulse Ox O2 Delivery O2 Flow Rate FiO2 04/03/21 06:00 92 18 207/97 (133) 100 Ventilator 04/03/21 04:00 98.6 98.6 Lungs: Clear Cardiovascular: S1 Abdomen: Soft, Non-tender Skin: Warm Labs Laboratory Tests Test 04/01/21 12:33 04/01/21 19:17 04/02/21 00:07 04/02/21 06:05 Glucose (Fingerstick) 151 mg/dL (70-99) 162 mg/dL (70-99) 95 mg/dL (70-99) 145 mg/dL (70-99) Test 04/02/21 06:10 04/02/21 08:00 04/02/21 10:45 04/02/21 12:34 Sodium Level 136 mmol/L (136-145) Potassium Level 3.4 mmol/L (3.5-5.1) Chloride Level 98 mmol/L (98-107) Carbon Dioxide Level 28 mmol/L (21-32) Anion Gap 10 (6-14) Blood Urea Nitrogen 19 mg/dL (7-20) Creatinine 3.5 mg/dL (0.6-1.0) Estimated GFR (Cockcroft-Gault) 14.1 Glucose Level 139 mg/dL (70-99) Calcium Level 8.9 mg/dL (8.5-10.1) Creatine Kinase 26 U/L (26-192) O2 Saturation 98 % (92-99) Arterial Blood pH 7.47 (7.35-7.45) Arterial Blood pCO2 at Patient Temp 33 mmHg (35-46) Arterial Blood pO2 at Patient Temp 116 mmHg (75-108) Arterial Blood HCO3 23 mmol/L (21-28) Arterial Blood Base Excess 0 mmol/L (-3-3) FiO2 40% vent Urine Collection Type Unknown Urine Color Yellow Urine Clarity Clear Urine pH 7.0 (<5.0-8.0) Urine Specific Fate <=1.005 (1.000-1.030) Urine Protein 100 mg/dL (NEG-TRACE) Urine Glucose (UA) Negative mg/dL (NEG) Urine Ketones (Stick) Negative mg/dL (NEG) Urine Blood Negative (NEG) Urine Nitrite Negative (NEG) Urine Bilirubin Negative (NEG) Urine Urobilinogen Dipstick 0.2 mg/dL (0.2 mg/dL) Urine Leukocyte Esterase Small (NEG) Urine RBC 0 /HPF (0-2) Urine WBC 5-10 /HPF (0-4) Urine Squamous Epithelial Cells Occ /LPF Urine Bacteria Few /HPF (0-FEW) Urine Yeast Present /HPF Glucose (Fingerstick) 232 mg/dL (70-99) Test 04/02/21 18:17 04/03/21 00:31 04/03/21 05:19 04/03/21 06:05 Glucose (Fingerstick) 148 mg/dL (70-99) 234 mg/dL (70-99) 201 mg/dL (70-99) Sodium Level 138 mmol/L (136-145) Potassium Level 3.1 mmol/L (3.5-5.1) Chloride Level 98 mmol/L (98-107) Carbon Dioxide Level 28 mmol/L (21-32) Anion Gap 12 (6-14) Blood Urea Nitrogen 26 mg/dL (7-20) Creatinine 4.3 mg/dL (0.6-1.0) Estimated GFR (Cockcroft-Gault) 11.1 Glucose Level 216 mg/dL (70-99) Calcium Level 9.2 mg/dL (8.5-10.1) Laboratory Tests Test 04/02/21 10:45 04/02/21 12:34 04/02/21 18:17 04/03/21 00:31 Urine Collection Type Unknown Urine Color Yellow Urine Clarity Clear Urine pH 7.0 (<5.0-8.0) Urine Specific Fate <=1.005 (1.000-1.030) Urine Protein 100 mg/dL (NEG-TRACE) Urine Glucose (UA) Negative mg/dL (NEG) Urine Ketones (Stick) Negative mg/dL (NEG) Urine Blood Negative (NEG) Urine Nitrite Negative (NEG) Urine Bilirubin Negative (NEG) Urine Urobilinogen Dipstick 0.2 mg/dL (0.2 mg/dL) Urine Leukocyte Esterase Small (NEG) Urine RBC 0 /HPF (0-2) Urine WBC 5-10 /HPF (0-4) Urine Squamous Epithelial Cells Occ /LPF Urine Bacteria Few /HPF (0-FEW) Urine Yeast Present /HPF Glucose (Fingerstick) 232 mg/dL (70-99) 148 mg/dL (70-99) 234 mg/dL (70-99) Test 04/03/21 05:19 04/03/21 06:05 Glucose (Fingerstick) 201 mg/dL (70-99) Sodium Level 138 mmol/L (136-145) Potassium Level 3.1 mmol/L (3.5-5.1) Chloride Level 98 mmol/L (98-107) Carbon Dioxide Level 28 mmol/L (21-32) Anion Gap 12 (6-14) Blood Urea Nitrogen 26 mg/dL (7-20) Creatinine 4.3 mg/dL (0.6-1.0) Estimated GFR (Cockcroft-Gault) 11.1 Glucose Level 216 mg/dL (70-99) Calcium Level 9.2 mg/dL (8.5-10.1) Medications Active Scripts Medications Dose Route/Sig Max Daily Dose Days Date Category Novolog Flexpen (Insulin Aspart) 100 Unit/1 Ml Insuln.pen 3-7 SQ TIDACHC 02/07/21 Reported Lisinopril 5 Mg Tablet 1 Tab PO DAILY 02/07/21 Reported Lantus Solostar (Insulin Glargine,Hum.rec.anlog) 100 Unit/1 Ml Insuln.pen 5 Unit SQ QHS 04/09/15 Reported Atorvastatin Calcium 40 Mg Tablet 40 Mg PO HS 04/09/15 Reported Impression . IMPRESSION: 1. Acute hypoxic respiratory failure secondary to COVID-19 viral pneumonia/acute lung injury and early acute respiratory distress syndrome. S/P intubation 02/17/21. Status post tracheostomy. 2. Nonsmoker. 3. Abnormal chest x-ray consistent with COVID-19 viral pneumonia. 4. Diabetic ketoacidosis--resolved 5. Underlying obesity contributing to hypoxia as well. 6. BOB . hemodialysis started 03/07 7. Fever, 30 ID 8. Abnormal chest x-ray with diffuse interstitial infiltrates compatible with viral pneumonia 9. [place] in the sputum is a contamination 10. Septic shoc 11. s/p lap G-tube 03/27 12. Delirium Plan . Updated 04/03 Patient currently undergoing hemodialysis, on assist control ventilation We have been unable to sedate patient and perform spontaneous breathing trials throughout the day with pressure support Antibiotics per ID, actinobacter in sputum. Cultures so far negative We will continue current support Hemodialysis per nephrology Updated 04/02 Reculture sent out Currently on daptomycin meropenem C. difficile negative Continue current support Try to titrate sedation down Hemodialysis per nephrology Nutritional support DVT GI prophylaxis MONTEZ OROPEZA MD Apr 03, 2021 08:36
[2021-04-03] MEDS ORDERED: ALBUMIN HUMAN 25% 200 ML IV PRN (09:00)
--- NOTE | 2021-04-03 09:11 | PDOC ---
DATE OF SERVICE DATE: 04/03/21 TIME: 09:04 SUBJECTIVE ROS On vent , sedated OBJECTIVE Vital Signs Vital Signs Date Time Temp Pulse Resp B/P (MAP) Pulse Ox O2 Delivery O2 Flow Rate FiO2 04/03/21 06:00 92 18 207/97 (133) 100 Ventilator 04/03/21 04:00 98.6 98.6 I & 0 Intake and Output 04/03/21 07:00 Intake Total 2035.88 ml Output Total 3070 ml Balance -1034.12 ml Intake Oral 0 ml IV Total 1691.88 ml Tube Feeding 344 ml Output Urine Total 2820 ml Stool Total 250 ml PHYSICAL EXAM Physical Exam GENERAL: On vent HEENT: Anicteric. . Neck Trach+ LUNGS: decreased at bases HEART: S1, S2. No murmurs. ABDOMEN: Obese, soft. Bowel sounds present. GENITOURINARY: Kern and rectal tube in place. EXTREMITIES: Edema present no cyanosis. CENTRAL NERVOUS SYSTEM: awake, on vent PSYCHIATRIC: Unable to assess. DERM has pressure wounds DIAGNOSIS/ASSESSMENT Assessment & Plan BOB-ATN- was anuric , now non Oliguric - UOP improving , No improvement in clearance - requiring dialysis., currently on MWF schedule, seen during treatment, tolerating well, continue as ordered, Lance STEVENSONn Supportive care, I/O avoid nephrotoxins, Monitor for recovery .Access- temp HDC HypoNatremia - resolved stable HypoKalemia - Adjust K in Dialysate DM 2 - Glucosuria + POA COVID 19 Pneumonia - Unvaccinated , treated, Off isolation Acute Resp Failure- Intubated ; CxR 04/01 Moderate diffuse pulmonary opacities, slightly decreased compared to prior. HTN antihypertensives Anemia -avoid DOYLE 2/2 to Thrombogenic state Family History of ESRD - Per at bedside- Pt's Mom was on dialysis and s ister is on Dialysis COMMENT/RELEVANT DATA Meds Current Medications Medications (Trade) Dose Ordered Sig/Pepe Start Time Stop Time Status Last Admin Dose Admin Acetaminophen (Tylenol Supp) 650 mg PRN Q6HRS PRN 02/08/21 01:45 02/17/21 10:45 DC Acetaminophen (Tylenol) 500 mg 1X PRN PRN 03/17/21 13:30 03/18/21 13:29 DC Albumin Human 200 ml @ 200 mls/hr 1X PRN PRN 04/03/21 09:00 04/03/21 14:59 Albuterol Sulfate (Ventolin Hfa) 60 puff STK-MED ONCE 03/17/21 11:29 03/17/21 11:29 DC Alteplase, Recombinant (Cathflo For Central Catheter Clearance) 1 mg 1X ONCE 02/27/21 14:30 02/27/21 14:36 DC 02/27/21 15:19 1 MG Alteplase, Recombinant (Cathflo) 2 mg 1X ONCE 02/27/21 11:00 02/27/21 11:01 DC 02/27/21 11:20 2 MG Amlodipine Besylate (Norvasc) 10 mg DAILY 03/31/21 09:00 04/02/21 09:56 10 MG Atorvastatin Calcium (Lipitor) 40 mg HS 02/08/21 21:00 04/02/21 20:57 40 MG Atropine Sulfate (ATROPINE 0.5mg SYRINGE) 0.5 mg PRN Q5MIN PRN 02/16/21 12:00 Azithromycin 250 mg/Sodium Chloride 250 ml @ 250 mls/hr Q24H 02/14/21 13:30 02/18/21 14:29 DC 02/18/21 11:51 250 MLS/HR Benzonatate (Tessalon Perle) 100 mg [id number] 02/10/21 23:30 02/17/21 10:45 DC 02/16/21 22:07 100 MG Bupivacaine HCl/ Epinephrine Bitart (Sensorcain-Epi 0.5% Kit) 30 ml STK-MED ONCE 03/27/21 10:05 03/27/21 10:05 DC 03/27/21 13:12 16 ML Bupivacaine HCl/ Epinephrine Bitart (Sensorcain-Epi 0.5%-1:400325 Mpf) 30 ml STK-MED ONCE 03/17/21 10:47 03/17/21 10:47 DC Carvedilol (Coreg) 6.25 mg BIDWMEALS 02/08/21 20:30 02/23/21 15:50 DC 02/23/21 08:06 6.25 MG Cefazolin Sodium/ Dextrose (Ancef 2gm Premix) 2 gm STK-MED ONCE 03/23/21 13:00 03/24/21 11:58 DC Ceftriaxone Sodium (Rocephin) 1 gm Q24H 02/14/21 13:00 02/23/21 07:34 DC 02/22/21 12:42 1 GM Cellulose (Surgicel Fibrillar 1x2) 1 each STK-MED ONCE 03/17/21 10:47 03/17/21 10:47 DC 03/17/21 11:56 1 EACH Daptomycin 480 mg/ Sodium Chloride 50 ml @ 100 mls/hr QMWF 03/23/21 16:00 03/26/21 10:29 DC 03/25/21 19:52 100 MLS/HR Daptomycin 500 mg/ Sodium Chloride 50 ml @ 100 mls/hr Q48H 04/02/21 10:00 04/02/21 09:58 100 MLS/HR Dexamethasone Sodium Phosphate (Decadron) 2 mg 1X ONCE 02/27/21 09:00 02/26/21 07:15 DC Dexmedetomidine HCl 400 mcg/ Sodium Chloride 100 ml @ 0 mls/hr CONT PRN 02/27/21 09:45 04/03/21 07:43 40.6 MLS/HR Dextrose (Dextrose 50%-Water Syringe) 12.5 gm PRN Q15MIN PRN 03/01/21 13:00 03/01/21 12:55 12.5 GM Diphenhydramine HCl (Benadryl) 25 mg 1X PRN PRN 03/17/21 13:30 03/18/21 13:29 DC Docusate Sodium (Colace Solution) 100 mg BID 02/23/21 12:00 04/02/21 20:57 100 MG Docusate Sodium (Colace) 100 mg PRN DAILY PRN 02/07/21 08:45 02/23/21 10:47 DC Enalaprilat (Vasotec Inj) 0.625 mg Q6HRS 02/08/21 16:15 02/09/21 16:01 DC 02/09/21 13:42 0.625 MG Enoxaparin Sodium (Lovenox 30mg Syringe) 30 mg Q24H 03/08/21 09:00 03/12/21 15:38 DC 03/12/21 09:04 30 MG Enoxaparin Sodium (Lovenox 40mg Syringe) 40 mg BID 02/09/21 09:00 03/08/21 13:56 DC 03/08/21 08:26 40 MG Enoxaparin Sodium (Lovenox Per Pharmacy Prophylaxis Dosing) 1 each PRN DAILY PRN 02/09/21 06:45 03/12/21 15:38 DC Ephedrine Sulfate (ePHEDrine PF IN SALINE SYRINGE) 50 mg STK-MED ONCE 03/17/21 10:56 03/17/21 10:56 DC Famotidine (Pepcid Vial) 20 mg DAILY 03/10/21 09:00 04/02/21 09:57 20 MG Fentanyl Citrate (Fentanyl 2ml Vial) 100 mcg STK-MED ONCE 03/27/21 13:18 03/27/21 13:18 DC Fluconazole/ Sodium Chloride 100 ml @ 100 mls/hr Q24H 03/07/21 09:00 03/17/21 08:03 DC 03/16/21 08:29 100 MLS/HR Furosemide (Lasix) 40 mg 1X ONCE 03/29/21 15:00 03/29/21 15:02 DC 03/29/21 15:22 40 MG Glycerin/ Hypromellose/ Polyethylene (Artificial Tears) 1 drop PRN Q1HR PRN 02/17/21 10:00 Glycopyrrolate (Robinul) 1 mg STK-MED ONCE 03/27/21 14:07 03/27/21 14:07 DC Guaifenesin (Robitussin Dm) 10 ml PRN Q6HRS PRN 02/10/21 23:30 02/16/21 09:06 10 ML Haloperidol Lactate (Haldol Inj) 5 mg Q8HRS 04/01/21 11:30 04/03/21 05:15 5 MG Heparin Sodium (Porcine) (Heparin Sodium) 5,000 unit Q8HRS 03/13/21 06:00 04/03/21 05:19 5,000 UNIT Hydralazine HCl (Apresoline Inj) 10 mg PRN Q4HRS PRN 02/11/21 12:15 04/02/21 18:06 10 MG Hydromorphone HCl (Dilaudid) 0.5 mg PRN Q10MIN PRN 03/27/21 06:00 03/28/21 05:59 DC Info (PHARMACY MONITORING -- do not chart) 1 each PRN DAILY PRN 04/03/21 08:15 Insulin Glargine (Lantus Syringe) 5 unit BID 03/06/21 09:00 04/02/21 20:57 5 UNIT Insulin Human Lispro (HumaLOG) 12 units Q6HRS 02/20/21 12:00 02/28/21 15:38 DC 02/27/21 05:41 12 UNITS Insulin Human Regular 100 ml @ 10 mls/hr 1X ONCE 02/07/21 06:30 02/07/21 16:54 DC 02/07/21 09:31 6.5 MLS/HR Insulin Human Regular 100 unit/ Sodium Chloride 101 ml @ 0 mls/hr CONT PRN PRN 02/07/21 06:00 02/07/21 16:54 DC Labetalol HCl (Normodyne Iv Push) 10 mg PRN Q2HR PRN 02/08/21 00:45 03/26/21 21:14 10 MG Lactobacillus Rhamnosus (Culturelle) 1 cap BID 02/16/21 21:00 02/17/21 10:45 DC 02/16/21 22:02 1 CAP Lidocaine HCl (Buffered Lidocaine 1%) 3 ml STK-MED ONCE 03/07/21 13:25 03/07/21 13:25 DC Linezolid (Zyvox) 600 mg BID 03/05/21 09:00 03/12/21 07:00 DC 03/11/21 20:33 600 MG Linezolid/Dextrose 300 ml @ 300 mls/hr Q12HR 03/16/21 10:00 03/18/21 07:37 DC 03/17/21 21:44 300 MLS/HR Lisinopril (Prinivil) 20 mg DAILY 02/17/21 09:00 03/09/21 10:43 DC 02/27/21 09:10 20 MG Lorazepam (Ativan Inj) 0.5 mg PRN Q6HRS PRN 02/08/21 10:00 04/01/21 15:32 0.5 MG Meropenem 1 gm/ Sodium Chloride 100 ml @ 200 mls/hr Q24H 03/18/21 17:00 04/02/21 16:31 200 MLS/HR Methylprednisolone Sodium Succinate (SOLU-Medrol 125MG VIAL) 80 mg Q8HRS 02/25/21 09:00 02/26/21 07:09 DC 02/26/21 05:52 80 MG Metoclopramide HCl (Reglan Vial) 10 mg PRN Q6HRS PRN 02/08/21 00:45 02/12/21 15:51 10 MG Micafungin Sodium 100 mg/Dextrose 100 ml @ 100 mls/hr Q24H 03/21/21 18:00 03/25/21 10:27 DC 03/24/21 16:36 100 MLS/HR Midazolam HCl 100 ml @ 0 mls/hr CONT PRN 02/17/21 10:00 03/20/21 17:18 5 MLS/HR Morphine Sulfate (Morphine Sulfate) 1 mg PRN Q10MIN PRN 03/27/21 06:00 03/28/21 05:59 DC Multi-Ingred Cream/Lotion/Oil/ Oint (Artificial Tears Eye Ointment) 1 reji PRN Q1HR PRN 03/17/21 17:30 03/20/21 15:55 1 REJI Multivitamins/ Minerals Therapeutic (Centrum Multivit-Mineral Liq) 5 ml DAILY 03/14/21 09:00 04/02/21 09:57 5 ML Naloxone HCl (Narcan) 0.4 mg PRN Q2MIN PRN 03/27/21 14:30 Neostigmine [place] (Neostigmine Methylsulfate) 5 mg STK-MED ONCE 03/27/21 14:06 03/27/21 14:07 DC Norepinephrine Bitartrate 8 mg/ Dextrose 258 ml @ 21.711 mls/ hr CONT PRN 03/06/21 13:45 03/19/21 18:45 23.3 MLS/HR Nystatin (Nystop) 1 reji BID 03/02/21 21:00 04/02/21 20:58 1 REJI Ondansetron HCl (Zofran Odt) 4 mg 1X ONCE 02/06/21 23:30 02/06/21 23:31 DC 02/06/21 23:57 4 MG Ondansetron HCl (Zofran) 4 mg 1X ONCE 02/07/21 20:00 02/07/21 20:07 DC 02/07/21 20:06 4 MG Phenylephrine HCl (PHENYLEPHRINE in 0.9% NACL PF) 1 mg STK-MED ONCE 03/27/21 13:46 03/27/21 13:46 DC Piperacillin Sod/ Tazobactam Sod (Zosyn Per Pharmacy) 1 each PRN DAILY PRN 02/23/21 07:45 03/17/21 10:04 DC Piperacillin Sod/ Tazobactam Sod 2.25 gm/Sodium Chloride 50 ml @ 100 mls/hr Q8HRS 03/07/21 14:00 03/17/21 08:03 DC 03/17/21 05:58 100 MLS/HR Piperacillin Sod/ Tazobactam Sod 3.375 gm/Sodium Chloride 50 ml @ 100 mls/hr Q6HRS 03/14/21 18:00 Cancel Piperacillin Sod/ Tazobactam Sod 4.5 gm/Sodium Chloride 100 ml @ 200 mls/hr Q6HRS 02/23/21 08:00 03/07/21 08:18 DC 03/07/21 06:12 200 MLS/HR Potassium Chloride/Water 100 ml @ 100 mls/hr PRN Q1HR PRN 02/07/21 06:00 02/07/21 16:54 DC Potassium Chloride (Klor-Con) 40 meq 1X ONCE 02/13/21 12:00 02/13/21 12:01 DC 02/13/21 13:21 40 MEQ Prochlorperazine Edisylate (Compazine) 5 mg PACU PRN PRN 03/27/21 06:00 03/28/21 05:59 DC Propofol (Diprivan) 200 mg STK-MED ONCE 03/27/21 12:02 03/27/21 12:03 DC Remdesivir 100 mg/ Sodium Chloride 230 ml @ 460 mls/hr Q24H 02/15/21 12:00 02/18/21 12:29 DC 02/18/21 11:52 460 MLS/HR Remdesivir 200 mg/ Sodium Chloride 210 ml @ 210 mls/hr 1X ONCE 02/11/21 13:00 02/12/21 11:55 DC 02/11/21 14:33 210 MLS/HR Ringer's Solution 1,000 ml @ 30 mls/hr Q24H 03/27/21 06:00 03/27/21 17:59 DC Rocuronium [place] (Zemuron) 50 mg STK-MED ONCE 03/27/21 13:16 03/27/21 13:17 DC Sennosides (Senna) 17.2 mg PRN BID PRN 02/07/21 08:45 02/22/21 08:29 17.2 MG Sevoflurane (Ultane) 60 ml STK-MED ONCE 03/27/21 14:19 03/27/21 14:20 DC Sodium Chloride 1,000 ml @ 400 mls/hr Q2H30M PRN 04/03/21 08:15 04/03/21 20:14 Sodium Chloride (Normal Saline Flush) 3 ml QSHIFT PRN 03/27/21 14:30 Succinylcholine Chloride (Anectine) 200 mg STK-MED ONCE 02/17/21 10:00 02/25/21 08:40 DC Vancomycin HCl (Vanco Per Pharmacy) 1 each PRN DAILY PRN 03/04/21 18:30 03/05/21 08:59 DC 03/04/21 19:47 1 EACH Vancomycin HCl (Vancomycin Trough Level) 1 each 1X ONCE 03/06/21 07:00 03/06/21 07:01 Cancel Vancomycin HCl 1.5 gm/Sodium Chloride 500 ml @ 250 mls/hr Q12H 03/05/21 07:30 03/05/21 08:58 DC Vancomycin HCl 1 gm/Sodium Chloride 250 ml @ 250 mls/hr Q12H 03/04/21 20:00 UNV Vancomycin HCl 2 gm/Sodium Chloride 500 ml @ 250 mls/hr 1X ONCE 03/04/21 19:00 03/04/21 20:59 DC 03/04/21 19:26 250 MLS/HR Vecuronium [place] (Norcuron Bolus) 6 mg PRN Q2HRS PRN 03/06/21 14:30 03/16/21 10:16 5 MG Vitamin A/Vitamin D (Vitamin A & D Ointment) 1 reji PRN Q1HR PRN 03/10/21 01:45 03/20/21 09:34 1 REJI Lab Laboratory Tests Test 04/02/21 10:45 04/02/21 12:34 04/02/21 18:17 04/03/21 00:31 Urine Collection Type Unknown Urine Color Yellow Urine Clarity Clear Urine pH 7.0 (<5.0-8.0) Urine Specific [place] <=1.005 (1.000-1.030) Urine Protein 100 mg/dL (NEG-TRACE) Urine Glucose (UA) Negative mg/dL (NEG) Urine Ketones (Stick) Negative mg/dL (NEG) Urine Blood Negative (NEG) Urine Nitrite Negative (NEG) Urine Bilirubin Negative (NEG) Urine Urobilinogen Dipstick 0.2 mg/dL (0.2 mg/dL) Urine Leukocyte Esterase Small (NEG) Urine RBC 0 /HPF (0-2) Urine WBC 5-10 /HPF (0-4) Urine Squamous Epithelial Cells Occ /LPF Urine Bacteria Few /HPF (0-FEW) Urine Yeast Present /HPF Glucose (Fingerstick) 232 mg/dL (70-99) 148 mg/dL (70-99) 234 mg/dL (70-99) Test 04/03/21 05:19 04/03/21 06:05 Glucose (Fingerstick) 201 mg/dL (70-99) Sodium Level 138 mmol/L (136-145) Potassium Level 3.1 mmol/L (3.5-5.1) Chloride Level 98 mmol/L (98-107) Carbon Dioxide Level 28 mmol/L (21-32) Anion Gap 12 (6-14) Blood Urea Nitrogen 26 mg/dL (7-20) Creatinine 4.3 mg/dL (0.6-1.0) Estimated GFR (Cockcroft-Gault) 11.1 Glucose Level 216 mg/dL (70-99) Calcium Level 9.2 mg/dL (8.5-10.1) Results All relevant outside records, renal labs, imaging studies, telemetry/EKG's were reviewed. Justicifation of Admission Dx: Justifications for Admission: Justification of Admission Dx: N/A GIGI CARMEN MD Apr 03, 2021 09:10
[2021-04-03] MEDS: INSULIN GLARGINE SYRINGE. SQ SCH ×2 (10:17→20:24)
[2021-04-03] MEDS: NYSTATIN TOPICAL POWDER 15GM BOTTLE. TP SCH ×2 (10:18→20:23)
--- NOTE | 2021-04-03 11:11 | PDOC ---
Infectious Disease Note Subjective: Subjective Pt intubated/sedated T [id number] Undergoing dialysis session currently Vital Signs: Vital Signs Vital Signs Date Time Temp Pulse Resp B/P (MAP) Pulse Ox O2 Delivery O2 Flow Rate FiO2 04/03/21 08:30 99 Ventilator 04/03/21 06:00 92 18 207/97 (133) 04/03/21 04:00 98.6 98.6 Physical Exam: PHYSICAL EXAM GENERAL: Intubated HEENT: Normocephalic, atraumatic. Anicteric. Slight bilateral periorbital edema. Neck right IJ HDC clean Trach + LUNGS: Rhonchi. HEART: S1, S2. No murmurs. ABDOMEN: Obese, soft. Bowel sounds present. Nontender, nondistended. Abdominal and pubis mons edema noted. PEG tube in place GENITOURINARY: Kern and fecal tube in place. EXTREMITIES: Edema present no cyanosis. CENTRAL NERVOUS SYSTEM: Intubated. PSYCHIATRIC: Unable to assess. Derm has pressure wounds wound pictures noted in chart. Generalized rash, PICC line February 14, right IJ HDC clean March 07 Medications: Inpatient Meds: Medications reviewed. Labs: Lab Laboratory Tests Test 04/02/21 12:34 04/02/21 18:17 04/03/21 00:31 04/03/21 05:19 Glucose (Fingerstick) 232 mg/dL (70-99) 148 mg/dL (70-99) 234 mg/dL (70-99) 201 mg/dL (70-99) Test 04/03/21 06:05 Sodium Level 138 mmol/L (136-145) Potassium Level 3.1 mmol/L (3.5-5.1) Chloride Level 98 mmol/L (98-107) Carbon Dioxide Level 28 mmol/L (21-32) Anion Gap 12 (6-14) Blood Urea Nitrogen 26 mg/dL (7-20) Creatinine 4.3 mg/dL (0.6-1.0) Estimated GFR (Cockcroft-Gault) 11.1 Glucose Level 216 mg/dL (70-99) Calcium Level 9.2 mg/dL (8.5-10.1) Micro GRAM STAIN EVALUATION Final Final This specimen is of good quality and is acceptable for routine bacterial culture. Culture results to follow. NO ORGANISMS SEEN. SQUAMOUS EPI CELL:RARE PMN (WBCs):MODERATE Unless otherwise specified, Testing Performed by: [address] [address] For Inquires, the Physician may contact the Microbiology department at [phone] RESPIRATORY CULTURE Final Final MODERATE GRAM NEGATIVE RODS on 03/18/21 at 1120 FINAL ID= [ACINETOBACTER [email or web address].] ACINETOBACTER URSINGII. ANTIMICROBIAL SUSCEPTIBILITY Final Comment NEG SAGE 56 ACINETOBACTER URSINGII. ANTIBIOTIC RESULT INTERPRETATION AMPICILLIN/SULBACTAM <=4/2 S AMIKACIN <=16 S CEFTRIAXONE 2 S CEFTAZIDIME 16 I CEFOTAXIME 16 I CIPROFLOXACIN <=0.25 S CEFEPIME 4 S GENTAMICIN <=2 S LEVOFLOXACIN <=0.5 S RUN DATE: 03/19/21 [facility] *LIVE* PAGE 2 RUN TIME: 1120 Specimen Inquiry SPEC: [id number] PATIENT: ARIADNA BANKS [id number] (Continued) - Procedure Result CONTINUED ON NEXT PAGE RUN DATE: 03/19/21 [facility] *LIVE* PAGE 3 RUN TIME: 1120 Specimen Inquiry SPEC: [id number] PATIENT: ARIADNA BANKS [id number] (Continued) Procedure Result ANTIMICROBIAL SUSCEPTIBILITY Final (continued) MINOCYCLINE <=4 S MEROPENEM <=1 S TRIMETHOPRIM/SULFAMETHOXAZOLE <=0.5/9.5 S TOBRAMYCIN <=2 S Unless otherwise specified, Testing Performed by: [address] [address] For Inquires, the Physician may contact the Microbiology department at [phone] Culture negative Objective: Assessment: 1. Febrile illness. 2. COVID-19 infection present on date of admission, 02/06/2021. Status post remdesivir, dexamethasone. 3. Acute hypoxic respiratory failure, status post intubation. S/P Trach on 03/17 Trach cultures positive for Rock albicans and now acinebacter ursungi 4. Diabetes. 5. Diarrhea. 6. Hypertension. 7. Hyperlipidemia. 8. Anemia. 9. BOB on HD 10.UC rock albican, ua neg Plan: Plan of Care Cont Meropenem March 18 Continue daptomycin, renal dosing April 02 Blood culture UA urine culture C. 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 Prognosis poor D/W KAITLYNN CURIEL MD Apr 03, 2021 11:11
--- NOTE | 2021-04-03 11:49 | PDOC ---
[facility] PROGRESS NOTE Date of Service DOS: DATE: 04/03/21 TIME: 11:47 Chief Complaint Chief Complaint CC: Covid-19 DKA Hypotension Nausea Vomiting Combined metabolic and respiratory acidosis Acute electrolyte derangementhyponatremia, hypochloremia due to volume depletion Hyperglycemia BOB due to ATN, requiring dialysis Erythrocytosis Candiduria Sacral decubitus ulcer S/P Trach on (03/17/21) Trach cultures positive for [place] albicans and now acinebacter ursungi Patient febrile morning of 04/02. Adding daptomycin per infectious disease. History of Present Illness History of Present Illness Ms Borges is a 46 year old female who presented with nausea/vomiting since 7 AM 02/06/2021 in the morning. Patient stated that her recently tested positive for Covid. She states that he "coughed in my face because he thought it was funny." She reports subjective fevers and chills and nausea/vomiting. Denies sore throat, cough, shortness of breath. No chest pain. Does have some upper abdominal discomfort after vomiting, that she attributes to muscular strain. She was not vaccinated for Covid. 02/08: No acute events overnight. Patient seen and examined bedside and resting comfortably. Continues to complain of nausea not able to tolerate any diet at this time. Saturating 98% on room air. Patient's chart, labs, images were reviewed and discussed with RN 02/09: Afebrile, currently breathing on room air. Still with complaints of nausea and vomiting x3 today. States that she has history of similar symptoms that have been mildly improved with IV Dilaudid. 02/10: Patient febrile today with T-max 102.2 F. She still admits to nausea, denies any further vomiting. We will continue to provide supportive care and monitor for any recurrent fevers overnight. Patient continues to improve may discharge tomorrow to continue self-isolation. 02/11: Febrile overnight, T-max 102.3 F. She did become hypoxic overnight, currently breathing on 4 L nasal cannula. Also admits to associated vomiting or diarrhea overnight. Discussed with RN, will initiate remdesivir and closely monitor LFTs. IV Decadron, and prophylactic antibiotics. 02/12: Low-grade fever overnight, T-max 99.7. Currently breathing on room air. Will discontinue remdesivir, steroids, and antibiotics; will observe overnight. Still with complaints of vomiting x1 and diarrhea. We will continue to provide supportive care and hope to discharge in the next day or so. 02/13: Afebrile. Still complains of intermittent diarrhea. At the time of my evaluation she was breathing on 6 L nasal cannula; this is somewhat misleading as patient states that she did not feel short of breath but was placed on 6 L by nursing staff overnight. 02/14: Afebrile, currently breathing on 8 L nasal cannula. There has been some misleading documentation, chart oxygen this patient is requiring. Discussed with RN, will resume remdesivir to complete total of 5 days. Continue to monitor LFTs. Will add steroids, Rocephin, and azithromycin. 02/15: Afebrile. Became much more hypoxic overnight, requiring BiPAP. At the time of my evaluation she is still breathing on BiPAP. Consultation was placed to pulmonology. Had discussion with Dr. Myrick about initiating Tocilizumab 02/16: No acute events overnight. Patient becoming more hypoxic saturating 94% and requiring BiPAP. Patient will be transferred to the ICU at this time. For worsening clinical status. Discussed with pulmonary. Patient's chart, labs, images were reviewed and discussed with RN 02/17: Transferred to ICU yesterday afternoon. Seen and examined at bedside she remains on 100% FiO2 on BiPAP. Respirations do appear somewhat labored. Suspect intubation may be impending. We will closely monitor. Increase lisinopril to 20 today. 02/18: Patient required intubation yesterday afternoon. Saw and examined this morning. She is intubated and sedated. Increase insulin today. Covid protocol ordered. Wean as tolerated. Plan of care discussed with bedside nurse. 02/19: Bedside. She remains intubated and sedated. Continue Covid protocol. Wean oxygen sedation as tolerated. Pulmonary following. Plan of care discussed with bedside RN. 02/20: Patient seen and examined at bedside. She remains intubated and sedated. No major clinical changes. Continue current treatment. Pulmonary following. Plan of care discussed with bedside RN. 02/21: Patient seen and examined at bedside. Remains intubated and sedated date and admission clinical changes. Increase free water flushes today due to hypernatremia. Plan of care discussed with bedside nurse. 02/22: Patient seen and examined at bedside. O2 requirement actually improving, although remains intubated. Possible SBT in the coming days. Hypernatremia improving. Plan of care discussed bedside RN. 02/23: Patient remains in ICU on ventilator with FiO2 100%, PEEP 7. Repeat chest x-ray yesterday showed diffuse bilateral pulmonary opacities with no interval improvement. Will discontinue Rocephin and initiate Zosyn. We will continue IV steroids for a full 10-day course 02/24: Afebrile. On vent with FiO2 40%, PEEP 6. Her Coreg has been held due to persistent bradycardia. No documented history of systolic heart failure or previous echocardiogram. Will need to obtain echocardiogram prior to discharge. Continue IV steroids and antibiotics. 02/25: Afebrile. Remains ventilated with FiO2 45%, PEEP 6. Chest x-ray today showed slight improvement of the pulmonary infiltrates, no pneumothorax. Completed 10-day course of IV Decadron. Will initiate slow Solu-Medrol taper. Continue IV Zosyn. Continue supportive care. 02/26: Afebrile. On vent with FiO2 45%, PEEP 6. Completed 10 days of IV Decadron. Will continue IV Zosyn. Continue supportive care. Critical care time 30 minutes spent reviewing charts, reviewing imaging, reviewing labs, discussion with RN. 02/27: Afebrile. On vent with FiO2 45%, PEEP 6. Completed 10 days of steroids and completed remdesivir. Continue with IV Zosyn. CPAP trial yesterday. Continue NG tube and supportive care. 02/28:. Patient remains on vent with FiO2 40%, PEEP 5. Afebrile. Completed steroids and remdesivir. Some noted hypoglycemia overnight, will de-escalate basal insulin. Continue IV Zosyn. Ventilator management per pulmonology. Continue NG tube and supportive care. 03/01: On vent with FiO2 40%, PEEP 5. Afebrile. Completed steroids and remdesivir. Blood glucose well controlled. Continue empiric antibiotics with Zosyn. Ventilator management per pulmonology. Continue NG tube and supportive care. 03/02: No acute events overnight. Patient hypotensive the morning due to oversedation. Will wean off sedation and keep antihypertensive medications on board. Currently saturating 100% on vent settings of 18/450/40/5. Will attempt spontaneous breathing trial today to see how patient does. 03/03: No acute events overnight. Patient saturating 98% on vent settings of 18/450/40/5. Will defer spontaneous breathing trials to pulmonary at this time. Patient's chart, labs, images were reviewed and discussed with RN 03/04: No acute events overnight. Patient saturating 9 9% on vent settings of 18/450/30/5. Patient currently is unable to tolerate weaning. Per pulmonary. Patient's chart, labs, images were reviewed and discussed with RN 03/05: No acute events overnight. Patient is saturating 97% on vent settings of 18/450/55/5. Her FiO2 needs to be increased due to abnormal ABG with 7.3 //24. Patient's chart, labs, images were reviewed and discussed with RN 03/06: No acute events overnight. Patient saturating 94% on vent settings of 18/450/55/5. Chest x-ray showing increase in pulmonary infiltrates. Wound care is consulted for decubitus ulcer patient's chart, labs, images were reviewed and discussed with RN 03/07: No acute events overnight. Patient saturating 94% on vent settings of 20/450/70/8. Patient now heading into renal failure with her creatinine bumped up from 1.5-4.2. Decreased urine output. Plan for hemodialysis today and temporary catheter placement and nephrology is consulted. 03/08: No acute events overnight. Patient did have a nausea vomiting episode and tube feeds were held. KUB repeat shows NG tube still in the stomach. Will resume tube feeds at trickle and advance to goal today. Will start hemodialysis soon. 03/09: Seen on vent 20/450/60%/8. ABG 7.2 WBC 11.4, Hb 7.4, platelets 188, NA 131, K4.9, BUN 48, CR 51, glucose 199, phosphorus 7.9, mag 2.2, AST 265 ALT 219, albumin 1.1. Chest radiograph appears unchanged from prior. Dialysis x1 today 03/10: Afebrile. Seen on vent, 20/450/60/7 with ABG 7.3 . Tolerated dialysis well on 03/09. LFTs similar. 03/11: Afebrile. Seen on vent, sedated. Still requiring Levophed for BP support. WBC 16.7, Hb 8.1, NA 130, ABG 7.3 on 55% FiO2 PEEP 6. On Zosyn and Zyvox Diflucan. Dialysis today 03/12: Afebrile. Still requiring Levophed for BP support sedated with Versed febrile Precedex. WBC 16.1, Hb 8.5, platelets 185, NA 133. Trach plan tentatively 03/17. O2 saturations 93% on 50% FiO2 PEEP 6. ABG 7. On Zosyn and Zyvox Diflucan. 03/13: Afebrile. Still on Levophed for BP support lightly sedated. 7. on 45% FiO2. Plan for dialysis today. On Zosyn and Zyvox Diflucan. More swollen today. 03/14: Afebrile. Weaning down off Levophed. WBC 14.9 NA 132. O2 saturations 92% on 45% FiO2 PEEP 5. Afebrile. O2 saturations 91% on FiO2 45% PEEP 6. Continued on Zosyn and Zyvox Diflucan. Tentative trach planned 03/17/2021 CC time 31 minutes 03/16/21: Patient seen and examined in ICU. Periorbital as well as upper and lower extremity edema noted. OG feed running at 30cc/hr. Still on vent on pressure control with a rate of 24 with 45% FiO2. Patient has rectal bag. Currently she has 98% O2 sat. Currently sedated with Dexmedetomidine, Propofol, Versed, and Fentanyl. Discussed with RN. Chart reviewed. 03/17/21: Patient was seen and examined in the ICU today. Periorbital edema as well as abdominal and mons pubis edema was noted. Patient still on vent on pressure control with Fi02 of 45% plus 6 PEEP. Patient had rectal bag. Currently sedated on Dexmedetomidine, Propofol, Versed, and Fentanyl. Discussed with RN. Chart reviewed. 03/18/21: Patient seen and examined in ICU. On vent via trach that was placed yesterday. Vent settings are Pressure Control of 40 with FiO2 of 45% and 6 PEEP. Trach clean and dry. Orbital swelling still present. Pupils are sluggish. Patient on TPN running at 30cc/hr. Kern to bedside and rectal bag in place. Current O2 sat at 94%. Sedated on Dexmedetomidine, Propofol, Versed, and Fentanyl. Discussed with RN. Chart reviewed. 03/19/21: Patient was seen and examined in the ICU today. Currently on vent via trach on pressure control of 42, rate of 24, FiO2 of 45%, and 6 PEEP. O2 sat is at 97% while patient is being examined. Trach is clean and dry. PICC line is in place on right arm. Periorbital swelling has decreased slightly since examined yesterday. Patient is sedated on Dexmedetomidine, Propofol, Versed, and Fentanyl. Discussed with RN. Chart reviewed. 03/20/21: Patient seen and examined in the ICU. Periorbital edema is slightly decreased since yesterday. O2 sat while being examined was 93%. NG tube in place and running at 30cc/hr. Patient on vent via trach on pressure control of 40 with FiO2 of 45 and rate of 24. Sedated on Dexmedetomidine, Propofol, Versed, and Fentanyl. PICC line in place. Kern to bedside. Rectal bag present. Discussed with RN. Chart reviewed. 03/21/21: Patient was seen and examined in the ICU today. She was semi-sedated.. She was on Dexmedetomidine and Fentanyl. We are holding the Propofol. Her eyes were periodically open but she was not making meaningful eye contact or tracking. On vent via trach with pressure control of 40 and FiO2 at 45. Rate was 24. PEEP was 5. Trach was clean and dry. While being examined, her O2 sat was 94%. Rectal bag and Kern to bedside in place. NG tube in place and feeding at 30cc/hr. IV fluids still running. Levophed has been stopped. Discussed with RN. Chart reviewed. 03/22/21: Patient was seen and examined in the ICU. She was semi-sedated on Propofol and Dexmedetomidine. Her eyes were open but she did not make meaningful eye contact. Her blood pressure was elevated (198/102) while being examined and she had just been given hydralazine to lower it. There are plans to place a PEG tube tomorrow. Currently on vent via trach on pressure control of 40 with FiO2 of 45%, 5 PEEP, and a rate of 24. Current O2 sat is 98%. She is feeding through an NG tube at 30cc/hr. Rectal bag and Kern to bedside present. SCDs on patient for DVT prophylaxis. She did not do her daily dialysis today but the plan is to start back on that tomorrow. Discussed with RN. Chart reviewed. 03/23/2021: Patient remains in ICU on ventilator. FiO2 40%, PEEP 5. Trach cultures positive for [place] albicans and acinebacter ursungi. We will contin ue treatment with IV antibiotics and micafungin, per ID. HD per nephrology. Plans for PEG tube placement today. 30 minutes critical care time was spent reviewing charts, reviewing labs, reviewing imaging, discussion with RN. 03/24/2021: Afebrile. On vent with FiO2 45%, PEEP 5. Had attempted PEG placement per GI yesterday, but unable to locate safe path for PEG; will consider surgical opinion. Once PEG is in place she should be stable for LTAC transfer when accepted. Continue antibiotics, per ID. 30 minutes critical care time was spent reviewing charts, reviewing labs, reviewing imaging, discussion with RN. 03/25/2021: Febrile overnight with T-max 101.5 F. On vent with FiO2 45%, PEEP 5. Surgery has been consulted with tentative plans for laparoscopic versus open gastrostomy placement tomorrow. Trach cultures positive for [place] albicans and now acinebacter ursungi; will continue antibiotic management, per ID. Hemodialysis, per nephrology. Patient needing LTAC placement, but currently without benefits. welfare eligibility worker following for discharge planning. Critical care time 30 minutes spent reviewing charts, reviewing labs, reviewing imaging, discussion with RN. 03/26/2021: Febrile today with T-max 100.5 F. Awake on vent with FiO2 45%, PEEP 5. When I ask if she remembers any she nods. G-tube placement scheduled for tomorrow, per general surgery. Chest x-ray today showed slight interval increase in diffuse infiltrate. Continue antibiotic management, per ID. Hemodialysis per nephrology. Reportedly did not tolerate CPAP trial this morning. welfare eligibility worker following for LTAC placement. Critical care time 30 minutes spent reviewing charts, reviewing labs, reviewing imaging, discussion with RN. 03/27/2021: On vent with FiO2 45%, PEEP 5. Afebrile today. Continue treatment of acute renal failure requiring HD, per nephrology. Monitor kidney function for recovery. G-tube placement scheduled for today, per general surgery. Likely LTAC placement soon, but this is been a difficult as she is self-pay without benefits; social work professor following. Critical care time 30 minutes spent reviewing charts, reviewing labs, reviewing imaging, discussion with RN. 03/28/2021: Afebrile. On vent with FiO2 40%, PEEP 5. Had laparoscopic gastrostomy tube placed yesterday, per general surgery. Continue treatment of acute renal failure requiring HD, per nephrology. Continue IV antibiotics, per ID. Likely LTAC placement soon, but this is been a difficult as she is self-pay without benefits; social work professor following. Critical care time 30 minutes spent reviewing charts, reviewing labs, reviewing imaging, discussion with RN. 03/29/2021: Afebrile. On vent with FiO2 45%, PEEP 5. S/P laparoscopic gastrostomy tube; tube feeds running. HD, per nephrology. Continue meropenem, per ID. Anticipate LTAC placement soon now that PEG has being placed; social work professor helping in these regards. Critical care time 30 minutes spent reviewing charts, reviewing labs, reviewing imaging, discussion with RN. 03/30 No major events or clinical changes overnight. Patient evaluated at bedside this morning on trach and G-tube. Tolerating these well. Has been working on insurance for patient for placement as she will need long-term care. Guarded prognosis. Plan of care discussed with bedside nurse. 03/31 No major clinical changes. Remains trached. Sedated. Continue current plan. 04/01 No changes. Patient resting in bed when evaluated sedated. is supposed to be working on insurance for placement for the patient. Otherwise no changes. 04/02 Patient febrile overnight, daptomycin added this morning per infectious disease. Otherwise no major clinical changes. Awaiting insurance. Infectious disease, pulmonary and renal following. Plan of care discussed with bedside RN. 04/03 Patient undergoing dialysis today. Evaluated at bedside this morning. otherwise continue current plan. supposed working on insurance. Vitals/I&O Vitals/I&O: Vital Signs Date Time Temp Pulse Resp B/P (MAP) Pulse Ox O2 Delivery O2 Flow Rate FiO2 04/03/21 11:24 100 Ventilator 04/03/21 06:00 92 18 207/97 (133) 04/03/21 04:00 98.6 98.6 I & O 04/02/21 04/02/21 04/03/21 15:00 23:00 07:00 Intake Total 0 ml 994.88 ml 1041 ml Output Total 475 ml 1085 ml 1510 ml Balance -475 ml -90.12 ml -469 ml Physical Exam Physical Exam: GENERAL: Intubated HEENT: Normocephalic, atraumatic. Anicteric. Slight bilateral periorbital edema. Neck right IJ HDC clean Trach + LUNGS: Rhonchi. HEART: S1, S2. No murmurs. ABDOMEN: Obese, soft. Bowel sounds present. Nontender, nondistended. Abdominal and pubis mons edema noted. PEG tube in place GENITOURINARY: Kern and fecal tube in place. EXTREMITIES: Edema present no cyanosis. CENTRAL NERVOUS SYSTEM: Intubated. PSYCHIATRIC: Unable to assess. Derm has pressure wounds wound pictures noted in chart. Generalized rash, PICC line February 14, right IJ HDC clean March 07 General: No acute distress, Other (sedated) Heart: Regular rate, Normal S1, Normal S2 Lungs: Clear Abdomen: Soft, Other (G-tube in place) Extremities: Other (ANASARCA) Skin: No rashes, No significant lesion Labs Labs: Laboratory Tests Test 04/02/21 12:34 04/02/21 18:17 04/03/21 00:31 04/03/21 05:19 Glucose (Fingerstick) 232 mg/dL (70-99) 148 mg/dL (70-99) 234 mg/dL (70-99) 201 mg/dL (70-99) Test 04/03/21 06:05 Sodium Level 138 mmol/L (136-145) Potassium Level 3.1 mmol/L (3.5-5.1) Chloride Level 98 mmol/L (98-107) Carbon Dioxide Level 28 mmol/L (21-32) Anion Gap 12 (6-14) Blood Urea Nitrogen 26 mg/dL (7-20) Creatinine 4.3 mg/dL (0.6-1.0) Estimated GFR (Cockcroft-Gault) 11.1 Glucose Level 216 mg/dL (70-99) Calcium Level 9.2 mg/dL (8.5-10.1) Assessment and Plan Assessmemt and Plan Problems Medical Problems: (1) Ketoacidosis Status: Acute Comment Review of Relevant I have reviewed the following items mazin (where applicable) has been applied. Medications: Current Medications Medications (Trade) Dose Ordered Sig/[place] Route PRN Reason Start Time Stop Time Status Last Admin Dose Admin Albumin Human 200 ml @ 200 mls/hr 1X PRN PRN IV Hypotension 04/03/21 09:00 04/03/21 14:59 04/03/21 09:18 Justifications for Admission Other Justification LEO DELGADO MD Apr 03, 2021 11:48
[2021-04-03] MEDS: DOCUSATE 100 MG/10 ML SOLUTION. PO SCH ×2 (12:42→20:23)
[2021-04-03] MEDS: FAMOTIDINE 20 MG/2 ML VIAL IVP SCH (12:42)
[2021-04-03] MEDS: MULTIVITAMINS,THERAPEUTIC 5 ML ORAL LIQUID. PEG SCH (12:42)
--- NOTE | 2021-04-03 15:47 | NUR ---
SS following up with discharge planning. SS reviewed pt chart and discussed with pt RN. No changes today. Pt is currently on the vent at 40%. COVID19 recovered. G tube and trach in place. Pt on IV Meropenem and IV Daptomycin. Pt on Sub Q Heparin, Fentanyl, Precedex, and Propofol. Self pay. Med Assist following. Applications for Medicaid and Disability submitted. Pt needing LTACH but has no benefits at this time. SS will continue to follow for discharge planning.
[2021-04-03] MEDS: MEROPENEM 1 GM in IV NORMAL SALINE 100ML 100 ML IV SCH (16:37)
[2021-04-03] MEDS: hydrALAZINE 20 MG/ML VIAL. IVP PRN (17:07)
[2021-04-03] MEDS: ATORVASTATIN CALCIUM 40 MG TABLET. PO SCH (20:23)
[2021-04-04] VITALS (24 sets, daily range): BP systolic 113–207; BP diastolic 52–106
[2021-04-04] MEDS: DEXMEDETOMIDINE 400 MCG in IV NORMAL SALINE 100ML 96 ML IV PRN ×9 (01:59→21:50)
[2021-04-04] MEDS: PROPOFOL 100 ML IV PRN ×5 (03:49→23:25)
[2021-04-04] MEDS: hydrALAZINE 20 MG/ML VIAL. IVP PRN ×2 (03:54→19:37)
[2021-04-04] MEDS: HALOPERIDOL LACTATE 5 MG/ML VIAL. IVP SCH ×3 (05:51→21:08)
[2021-04-04] MEDS: INSULIN LISPRO 300 UNITS/3 ML VIAL. SQ SCH ×4 (05:52→23:26)
[2021-04-04] MEDS: HEPARIN for SUB-Q USE 5,000 UNIT/ML VIAL. SQ SCH ×3 (05:52→21:13)
[2021-04-04 06:19] LABS: CALCIUM 9.3 mg/dL (8.5-10.1); CREATININE 2.9 mg/dL (0.6-1.0); GFR 17.5
[2021-04-04 06:21] LABS: POTASSIUM 2.8 mmol/L (3.5-5.1)
[2021-04-04] MEDS: POTASSIUM CHLORIDE 20MEQ 100 ML IV SCH ×4 (07:19→15:12)
--- NOTE | 2021-04-04 07:19 | PDOC ---
PULMONARY PROGRESS NOTES DATE: 04/04/21 TIME: 07:16 Subjective trach on vent sedated prop fentanyl precedex tolerated ps 14/5 2 hrs 04/03 hd 04/03 peep 4 fio2 40% Vitals Vital Signs Date Time Temp Pulse Resp B/P (MAP) Pulse Ox O2 Delivery O2 Flow Rate FiO2 04/04/21 06:00 60 18 146/71 (96) 100 Ventilator 04/04/21 04:00 98.4 98.4 Comments on vent sedated HEENT: Other (nc at perrl ) Lungs: Clear Cardiovascular: S1 Abdomen: Soft, Non-tender Skin: Warm Labs Laboratory Tests Test 04/02/21 08:00 04/02/21 10:45 04/02/21 12:34 04/02/21 18:17 O2 Saturation 98 % (92-99) Arterial Blood pH 7.47 (7.35-7.45) Arterial Blood pCO2 at Patient Temp 33 mmHg (35-46) Arterial Blood pO2 at Patient Temp 116 mmHg (75-108) Arterial Blood HCO3 23 mmol/L (21-28) Arterial Blood Base Excess 0 mmol/L (-3-3) FiO2 40% vent Urine Collection Type Unknown Urine Color Yellow Urine Clarity Clear Urine pH 7.0 (<5.0-8.0) Urine Specific [place] <=1.005 (1.000-1.030) Urine Protein 100 mg/dL (NEG-TRACE) Urine Glucose (UA) Negative mg/dL (NEG) Urine Ketones (Stick) Negative mg/dL (NEG) Urine Blood Negative (NEG) Urine Nitrite Negative (NEG) Urine Bilirubin Negative (NEG) Urine Urobilinogen Dipstick 0.2 mg/dL (0.2 mg/dL) Urine Leukocyte Esterase Small (NEG) Urine RBC 0 /HPF (0-2) Urine WBC 5-10 /HPF (0-4) Urine Squamous Epithelial Cells Occ /LPF Urine Bacteria Few /HPF (0-FEW) Urine Yeast Present /HPF Glucose (Fingerstick) 232 mg/dL (70-99) 148 mg/dL (70-99) Test 04/03/21 00:31 04/03/21 05:19 04/03/21 06:05 04/03/21 12:45 Glucose (Fingerstick) 234 mg/dL (70-99) 201 mg/dL (70-99) 209 mg/dL (70-99) Sodium Level 138 mmol/L (136-145) Potassium Level 3.1 mmol/L (3.5-5.1) Chloride Level 98 mmol/L (98-107) Carbon Dioxide Level 28 mmol/L (21-32) Anion Gap 12 (6-14) Blood Urea Nitrogen 26 mg/dL (7-20) Creatinine 4.3 mg/dL (0.6-1.0) Estimated GFR (Cockcroft-Gault) 11.1 Glucose Level 216 mg/dL (70-99) Calcium Level 9.2 mg/dL (8.5-10.1) Test 04/03/21 16:59 04/03/21 23:43 04/04/21 05:45 04/04/21 05:50 Glucose (Fingerstick) 197 mg/dL (70-99) 219 mg/dL (70-99) 200 mg/dL (70-99) Sodium Level 137 mmol/L (136-145) Potassium Level 2.8 mmol/L (3.5-5.1) Chloride Level 98 mmol/L (98-107) Carbon Dioxide Level 28 mmol/L (21-32) Anion Gap 11 (6-14) Blood Urea Nitrogen 22 mg/dL (7-20) Creatinine 2.9 mg/dL (0.6-1.0) Estimated GFR (Cockcroft-Gault) 17.5 Glucose Level 206 mg/dL (70-99) Calcium Level 9.3 mg/dL (8.5-10.1) Laboratory Tests Test 04/03/21 12:45 04/03/21 16:59 04/03/21 23:43 04/04/21 05:45 Glucose (Fingerstick) 209 mg/dL (70-99) 197 mg/dL (70-99) 219 mg/dL (70-99) Sodium Level 137 mmol/L (136-145) Potassium Level 2.8 mmol/L (3.5-5.1) Chloride Level 98 mmol/L (98-107) Carbon Dioxide Level 28 mmol/L (21-32) Anion Gap 11 (6-14) Blood Urea Nitrogen 22 mg/dL (7-20) Creatinine 2.9 mg/dL (0.6-1.0) Estimated GFR (Cockcroft-Gault) 17.5 Glucose Level 206 mg/dL (70-99) Calcium Level 9.3 mg/dL (8.5-10.1) Test 04/04/21 05:50 Glucose (Fingerstick) 200 mg/dL (70-99) Medications Active Scripts Medications Dose Route/Sig Max Daily Dose Days Date Category Novolog Flexpen (Insulin Aspart) 100 Unit/1 Ml Insuln.pen 3-7 SQ TIDACHC 02/07/21 Reported Lisinopril 5 Mg Tablet 1 Tab PO DAILY 02/07/21 Reported Lantus Solostar (Insulin Glargine,Hum.rec.anlog) 100 Unit/1 Ml Insuln.pen 5 Unit SQ QHS 04/09/15 Reported Atorvastatin Calcium 40 Mg Tablet 40 Mg PO HS 04/09/15 Reported Impression . IMPRESSION: 1. Acute hypoxic respiratory failure secondary to COVID-19 viral pneumonia/acute lung injury and early acute respiratory distress syndrome. S/P intubation 02/17/21. Status post tracheostomy. 2. Nonsmoker. 3. Abnormal chest x-ray consistent with COVID-19 viral pneumonia. 4. Diabetic ketoacidosis--resolved 5. Underlying obesity contributing to hypoxia as well. 6. BOB . hemodialysis started 03/07 7. Fever, 30 ID 8. Abnormal chest x-ray with diffuse interstitial infiltrates compatible with viral pneumonia 9. [place] in the sputum is a contamination 10. Septic shoc 11. s/p lap G-tube 03/27 12. Delirium Plan . Updated 04/04 cont vent support setting reviewed decrease sedation weaning as tolerated hd per nephro Antibiotics per ID, actinobacter in sputum. Cultures so far negative elevate hob hep sq pepcid for prophylaxis discussed w rn Updated 04/03 Patient currently undergoing hemodialysis, on assist control ventilation We have been unable to sedate patient and perform spontaneous breathing trials throughout the day with pressure support Antibiotics per ID, actinobacter in sputum. Cultures so far negative We will continue current support Hemodialysis per nephrology Updated 04/02 Reculture sent out Currently on daptomycin meropenem C. difficile negative Continue current support Try to titrate sedation down Hemodialysis per nephrology Nutritional support DVT GI prophylaxis SHERREI MARMOLEJO MD Apr 04, 2021 07:19
[2021-04-04 08:42] LABS: BASE EXCESS ABG 1 mmol/L (-3-3); HCO3 ABG 23 mmol/L (21-28); PCO2 ABG 30 mmHg (35-46); PO2 ABG 147 mmHg (75-108); SAT O2 ABG 99 % (92-99)
[2021-04-04 08:46] LABS: FIO2 ABG 40% VENT
[2021-04-04] MEDS: DOCUSATE 100 MG/10 ML SOLUTION. PO SCH ×2 (09:29→20:14)
[2021-04-04] MEDS: MULTIVITAMINS,THERAPEUTIC 5 ML ORAL LIQUID. PEG SCH (09:29)
[2021-04-04] MEDS: FAMOTIDINE 20 MG/2 ML VIAL IVP SCH (09:29)
[2021-04-04] MEDS: NYSTATIN TOPICAL POWDER 15GM BOTTLE. TP SCH ×2 (09:32→20:13)
[2021-04-04] MEDS: INSULIN GLARGINE SYRINGE. SQ SCH ×2 (09:36→20:13)
[2021-04-04] MEDS: DAPTOmycin (GENERIC) IVPB 500 MG in IV NORMAL SALINE 50ML 50 ML IV SCH (10:46)
--- NOTE | 2021-04-04 11:42 | PDOC ---
[facility] [facility] PROGRESS NOTE Date of Service DOS: DATE: 04/04/21 TIME: 11:41 Chief Complaint Chief Complaint CC: Covid-19 DKA Hypotension Nausea Vomiting Combined metabolic and respiratory acidosis Acute electrolyte derangementhyponatremia, hypochloremia due to volume depletion Hyperglycemia BOB due to ATN, requiring dialysis Erythrocytosis Candiduria Sacral decubitus ulcer S/P Trach on (03/17/21) Trach cultures positive for [place] albicans and now acinebacter ursungi Patient febrile morning of 04/02. Adding daptomycin per infectious disease. History of Present Illness History of Present Illness Ms Borges is a 46 year old female who presented with nausea/vomiting since 7 AM 02/06/2021 in the morning. Patient stated that her recently tested positive for Covid. She states that he "coughed in my face because he thought it was funny." She reports subjective fevers and chills and nausea/vomiting. Denies sore throat, cough, shortness of breath. No chest pain. Does have some upper abdominal discomfort after vomiting, that she attributes to muscular strain. She was not vaccinated for Covid. 02/08: No acute events overnight. Patient seen and examined bedside and resting comfortably. Continues to complain of nausea not able to tolerate any diet at this time. Saturating 98% on room air. Patient's chart, labs, images were reviewed and discussed with RN 02/09: Afebrile, currently breathing on room air. Still with complaints of nausea and vomiting x3 today. States that she has history of similar symptoms that have been mildly improved with IV Dilaudid. 02/10: Patient febrile today with T-max 102.2 F. She still admits to nausea, denies any further vomiting. We will continue to provide supportive care and monitor for any recurrent fevers overnight. Patient continues to improve may discharge tomorrow to continue self-isolation. 02/11: Febrile overnight, T-max 102.3 F. She did become hypoxic overnight, currently breathing on 4 L nasal cannula. Also admits to associated vomiting or diarrhea overnight. Discussed with RN, will initiate remdesivir and closely monitor LFTs. IV Decadron, and prophylactic antibiotics. 02/12: Low-grade fever overnight, T-max 99.7. Currently breathing on room air. Will discontinue remdesivir, steroids, and antibiotics; will observe overnight. Still with complaints of vomiting x1 and diarrhea. We will continue to provide supportive care and hope to discharge in the next day or so. 02/13: Afebrile. Still complains of intermittent diarrhea. At the time of my evaluation she was breathing on 6 L nasal cannula; this is somewhat misleading as patient states that she did not feel short of breath but was placed on 6 L by nursing staff overnight. 02/14: Afebrile, currently breathing on 8 L nasal cannula. There has been some misleading documentation, chart oxygen this patient is requiring. Discussed with RN, will resume remdesivir to complete total of 5 days. Continue to monitor LFTs. Will add steroids, Rocephin, and azithromycin. 02/15: Afebrile. Became much more hypoxic overnight, requiring BiPAP. At the time of my evaluation she is still breathing on BiPAP. Consultation was placed to pulmonology. Had discussion with Dr. Myrick about initiating Tocilizumab 02/16: No acute events overnight. Patient becoming more hypoxic saturating 94% and requiring BiPAP. Patient will be transferred to the ICU at this time. For worsening clinical status. Discussed with pulmonary. Patient's chart, labs, images were reviewed and discussed with RN 02/17: Transferred to ICU yesterday afternoon. Seen and examined at bedside she remains on 100% FiO2 on BiPAP. Respirations do appear somewhat labored. Suspect intubation may be impending. We will closely monitor. Increase lisinopril to 20 today. 02/18: Patient required intubation yesterday afternoon. Saw and examined this morning. She is intubated and sedated. Increase insulin today. Covid protocol ordered. Wean as tolerated. Plan of care discussed with bedside nurse. 02/19: Bedside. She remains intubated and sedated. Continue Covid protocol. Wean oxygen sedation as tolerated. Pulmonary following. Plan of care discussed with bedside RN. 02/20: Patient seen and examined at bedside. She remains intubated and sedated. No major clinical changes. Continue current treatment. Pulmonary following. Plan of care discussed with bedside RN. 02/21: Patient seen and examined at bedside. Remains intubated and sedated date and admission clinical changes. Increase free water flushes today due to hypernatremia. Plan of care discussed with bedside nurse. 02/22: Patient seen and examined at bedside. O2 requirement actually improving, although remains intubated. Possible SBT in the coming days. Hypernatremia improving. Plan of care discussed bedside RN. 02/23: Patient remains in ICU on ventilator with FiO2 100%, PEEP 7. Repeat chest x-ray yesterday showed diffuse bilateral pulmonary opacities with no interval improvement. Will discontinue Rocephin and initiate Zosyn. We will continue IV steroids for a full 10-day course 02/24: Afebrile. On vent with FiO2 40%, PEEP 6. Her Coreg has been held due to persistent bradycardia. No documented history of systolic heart failure or previous echocardiogram. Will need to obtain echocardiogram prior to discharge. Continue IV steroids and antibiotics. 02/25: Afebrile. Remains ventilated with FiO2 45%, PEEP 6. Chest x-ray today showed slight improvement of the pulmonary infiltrates, no pneumothorax. Completed 10-day course of IV Decadron. Will initiate slow Solu-Medrol taper. Continue IV Zosyn. Continue supportive care. 02/26: Afebrile. On vent with FiO2 45%, PEEP 6. Completed 10 days of IV Decadron. Will continue IV Zosyn. Continue supportive care. Critical care time 30 minutes spent reviewing charts, reviewing imaging, reviewing labs, discussion with RN. 02/27: Afebrile. On vent with FiO2 45%, PEEP 6. Completed 10 days of steroids and completed remdesivir. Continue with IV Zosyn. CPAP trial yesterday. Continue NG tube and supportive care. 02/28:. Patient remains on vent with FiO2 40%, PEEP 5. Afebrile. Completed steroids and remdesivir. Some noted hypoglycemia overnight, will de-escalate basal insulin. Continue IV Zosyn. Ventilator management per pulmonology. Continue NG tube and supportive care. 03/01: On vent with FiO2 40%, PEEP 5. Afebrile. Completed steroids and remdesivir. Blood glucose well controlled. Continue empiric antibiotics with Zosyn. Ventilator management per pulmonology. Continue NG tube and supportive care. 03/02: No acute events overnight. Patient hypotensive the morning due to oversedation. Will wean off sedation and keep antihypertensive medications on board. Currently saturating 100% on vent settings of 18/450/40/5. Will attempt spontaneous breathing trial today to see how patient does. 03/03: No acute events overnight. Patient saturating 98% on vent settings of 18/450/40/5. Will defer spontaneous breathing trials to pulmonary at this time. Patient's chart, labs, images were reviewed and discussed with RN 03/04: No acute events overnight. Patient saturating 9 9% on vent settings of 18/450/30/5. Patient currently is unable to tolerate weaning. Per pulmonary. Patient's chart, labs, images were reviewed and discussed with RN 03/05: No acute events overnight. Patient is saturating 97% on vent settings of 18/450/55/5. Her FiO2 needs to be increased due to abnormal ABG with 7.3 //24. Patient's chart, labs, images were reviewed and discussed with RN 03/06: No acute events overnight. Patient saturating 94% on vent settings of 18/450/55/5. Chest x-ray showing increase in pulmonary infiltrates. Wound care is consulted for decubitus ulcer patient's chart, labs, images were reviewed and discussed with RN 03/07: No acute events overnight. Patient saturating 94% on vent settings of 20/450/70/8. Patient now heading into renal failure with her creatinine bumped up from 1.5-4.2. Decreased urine output. Plan for hemodialysis today and temporary catheter placement and nephrology is consulted. 03/08: No acute events overnight. Patient did have a nausea vomiting episode and tube feeds were held. KUB repeat shows NG tube still in the stomach. Will resume tube feeds at trickle and advance to goal today. Will start hemodialysis soon. 03/09: Seen on vent 20/450/60%/8. ABG 7.2 WBC 11.4, Hb 7.4, platelets 188, NA 131, K4.9, BUN 48, CR 51, glucose 199, phosphorus 7.9, mag 2.2, AST 265 ALT 219, albumin 1.1. Chest radiograph appears unchanged from prior. Dialysis x1 today 03/10: Afebrile. Seen on vent, 20/450/60/7 with ABG 7.3 . Tolerated dialysis well on 03/09. LFTs similar. 03/11: Afebrile. Seen on vent, sedated. Still requiring Levophed for BP support. WBC 16.7, Hb 8.1, NA 130, ABG 7.3 on 55% FiO2 PEEP 6. On Zosyn and Zyvox Diflucan. Dialysis today 03/12: Afebrile. Still requiring Levophed for BP support sedated with Versed febrile Precedex. WBC 16.1, Hb 8.5, platelets 185, NA 133. Trach plan tentatively 03/17. O2 saturations 93% on 50% FiO2 PEEP 6. ABG 7. On Zosyn and Zyvox Diflucan. 03/13: Afebrile. Still on Levophed for BP support lightly sedated. 7. on 45% FiO2. Plan for dialysis today. On Zosyn and Zyvox Diflucan. More swollen today. 03/14: Afebrile. Weaning down off Levophed. WBC 14.9 NA 132. O2 saturations 92% on 45% FiO2 PEEP 5. Afebrile. O2 saturations 91% on FiO2 45% PEEP 6. Continued on Zosyn and Zyvox Diflucan. Tentative trach planned 03/17/2021 CC time 31 minutes 03/16/21: Patient seen and examined in ICU. Periorbital as well as upper and lower extremity edema noted. OG feed running at 30cc/hr. Still on vent on pressure control with a rate of 24 with 45% FiO2. Patient has rectal bag. Currently she has 98% O2 sat. Currently sedated with Dexmedetomidine, Propofol, Versed, and Fentanyl. Discussed with RN. Chart reviewed. 03/17/21: Patient was seen and examined in the ICU today. Periorbital edema as well as abdominal and mons pubis edema was noted. Patient still on vent on pressure control with Fi02 of 45% plus 6 PEEP. Patient had rectal bag. Currently sedated on Dexmedetomidine, Propofol, Versed, and Fentanyl. Discussed with RN. Chart reviewed. 03/18/21: Patient seen and examined in ICU. On vent via trach that was placed yesterday. Vent settings are Pressure Control of 40 with FiO2 of 45% and 6 PEEP. Trach clean and dry. Orbital swelling still present. Pupils are sluggish. Patient on TPN running at 30cc/hr. Kern to bedside and rectal bag in place. Current O2 sat at 94%. Sedated on Dexmedetomidine, Propofol, Versed, and Fentanyl. Discussed with RN. Chart reviewed. 03/19/21: Patient was seen and examined in the ICU today. Currently on vent via trach on pressure control of 42, rate of 24, FiO2 of 45%, and 6 PEEP. O2 sat is at 97% while patient is being examined. Trach is clean and dry. PICC line is in place on right arm. Periorbital swelling has decreased slightly since examined yesterday. Patient is sedated on Dexmedetomidine, Propofol, Versed, and Fentanyl. Discussed with RN. Chart reviewed. 03/20/21: Patient seen and examined in the ICU. Periorbital edema is slightly decreased since yesterday. O2 sat while being examined was 93%. NG tube in place and running at 30cc/hr. Patient on vent via trach on pressure control of 40 with FiO2 of 45 and rate of 24. Sedated on Dexmedetomidine, Propofol, Versed, and Fentanyl. PICC line in place. Kern to bedside. Rectal bag present. Discussed with RN. Chart reviewed. 03/21/21: Patient was seen and examined in the ICU today. She was semi-sedated.. She was on Dexmedetomidine and Fentanyl. We are holding the Propofol. Her eyes were periodically open but she was not making meaningful eye contact or tracking. On vent via trach with pressure control of 40 and FiO2 at 45. Rate was 24. PEEP was 5. Trach was clean and dry. While being examined, her O2 sat was 94%. Rectal bag and Kern to bedside in place. NG tube in place and feeding at 30cc/hr. IV fluids still running. Levophed has been stopped. Discussed with RN. Chart reviewed. 03/22/21: Patient was seen and examined in the ICU. She was semi-sedated on Propofol and Dexmedetomidine. Her eyes were open but she did not make meaningful eye contact. Her blood pressure was elevated (198/102) while being examined and she had just been given hydralazine to lower it. There are plans to place a PEG tube tomorrow. Currently on vent via trach on pressure control of 40 with FiO2 of 45%, 5 PEEP, and a rate of 24. Current O2 sat is 98%. She is feeding through an NG tube at 30cc/hr. Rectal bag and Kern to bedside present. SCDs on patient for DVT prophylaxis. She did not do her daily dialysis today but the plan is to start back on that tomorrow. Discussed with RN. Chart reviewed. 03/23/2021: Patient remains in ICU on ventilator. FiO2 40%, PEEP 5. Trach cultures positive for [place] albicans and acinebacter ursungi. We will contin ue treatment with IV antibiotics and micafungin, per ID. HD per nephrology. Plans for PEG tube placement today. 30 minutes critical care time was spent reviewing charts, reviewing labs, reviewing imaging, discussion with RN. 03/24/2021: Afebrile. On vent with FiO2 45%, PEEP 5. Had attempted PEG placement per GI yesterday, but unable to locate safe path for PEG; will consider surgical opinion. Once PEG is in place she should be stable for LTAC transfer when accepted. Continue antibiotics, per ID. 30 minutes critical care time was spent reviewing charts, reviewing labs, reviewing imaging, discussion with RN. 03/25/2021: Febrile overnight with T-max 101.5 F. On vent with FiO2 45%, PEEP 5. Surgery has been consulted with tentative plans for laparoscopic versus open gastrostomy placement tomorrow. Trach cultures positive for [place] albicans and now acinebacter ursungi; will continue antibiotic management, per ID. Hemodialysis, per nephrology. Patient needing LTAC placement, but currently without benefits. munitions worker following for discharge planning. Critical care time 30 minutes spent reviewing charts, reviewing labs, reviewing imaging, discussion with RN. 03/26/2021: Febrile today with T-max 100.5 F. Awake on vent with FiO2 45%, PEEP 5. When I ask if she remembers any she nods. G-tube placement scheduled for tomorrow, per general surgery. Chest x-ray today showed slight interval increase in diffuse infiltrate. Continue antibiotic management, per ID. Hemodialysis per nephrology. Reportedly did not tolerate CPAP trial this morning. munitions worker following for LTAC placement. Critical care time 30 minutes spent reviewing charts, reviewing labs, reviewing imaging, discussion with RN. 03/27/2021: On vent with FiO2 45%, PEEP 5. Afebrile today. Continue treatment of acute renal failure requiring HD, per nephrology. Monitor kidney function for recovery. G-tube placement scheduled for today, per general surgery. Likely LTAC placement soon, but this is been a difficult as she is self-pay without benefits; social worker aide following. Critical care time 30 minutes spent reviewing charts, reviewing labs, reviewing imaging, discussion with RN. 03/28/2021: Afebrile. On vent with FiO2 40%, PEEP 5. Had laparoscopic gastrostomy tube placed yesterday, per general surgery. Continue treatment of acute renal failure requiring HD, per nephrology. Continue IV antibiotics, per ID. Likely LTAC placement soon, but this is been a difficult as she is self-pay without benefits; social worker aide following. Critical care time 30 minutes spent reviewing charts, reviewing labs, reviewing imaging, discussion with RN. 03/29/2021: Afebrile. On vent with FiO2 45%, PEEP 5. S/P laparoscopic gastrostomy tube; tube feeds running. HD, per nephrology. Continue meropenem, per ID. Anticipate LTAC placement soon now that PEG has being placed; social worker aide helping in these regards. Critical care time 30 minutes spent reviewing charts, reviewing labs, reviewing imaging, discussion with RN. 03/30 No major events or clinical changes overnight. Patient evaluated at bedside this morning on trach and G-tube. Tolerating these well. Has been working on insurance for patient for placement as she will need long-term care. Guarded prognosis. Plan of care discussed with bedside nurse. 03/31 No major clinical changes. Remains trached. Sedated. Continue current plan. 04/01 No changes. Patient resting in bed when evaluated sedated. is supposed to be working on insurance for placement for the patient. Otherwise no changes. 04/02 Patient febrile overnight, daptomycin added this morning per infectious disease. Otherwise no major clinical changes. Awaiting insurance. Infectious disease, pulmonary and renal following. Plan of care discussed with bedside RN. 04/03 Patient undergoing dialysis today. Evaluated at bedside this morning. otherwise continue current plan. supposed working on insurance. 04/04 No major overnight changes. Continue current plan. Vitals/I&O Vitals/I&O: Vital Signs Date Time Temp Pulse Resp B/P (MAP) Pulse Ox O2 Delivery O2 Flow Rate FiO2 04/04/21 11:00 77 19 166/82 (110) 100 Ventilator 04/04/21 08:00 98.4 98.4 I & O 04/03/21 04/03/21 04/04/21 15:00 23:00 07:00 Intake Total 193 ml 704.59 ml 1996 ml Output Total 330 ml 155 ml 325 ml Balance -137 ml 549.59 ml 1671 ml Physical Exam Physical Exam: GENERAL: Intubated HEENT: Normocephalic, atraumatic. Anicteric. Slight bilateral periorbital edema. Neck right IJ HDC clean Trach + LUNGS: Rhonchi. HEART: S1, S2. No murmurs. ABDOMEN: Obese, soft. Bowel sounds present. Nontender, nondistended. Abdominal and pubis mons edema noted. PEG tube in place GENITOURINARY: Kern and fecal tube in place. EXTREMITIES: Edema present no cyanosis. CENTRAL NERVOUS SYSTEM: Intubated. PSYCHIATRIC: Unable to assess. Derm has pressure wounds wound pictures noted in chart. Generalized rash, PICC line February 14, right IJ HDC clean March 07 General: No acute distress, Other (sedated) Heart: Regular rate, Normal S1, Normal S2 Lungs: Clear Abdomen: Soft, Other (G-tube in place) Extremities: Other (ANASARCA) Skin: No rashes, No significant lesion Labs Labs: Laboratory Tests Test 04/03/21 12:45 04/03/21 16:59 04/03/21 23:43 04/04/21 05:45 Glucose (Fingerstick) 209 mg/dL (70-99) 197 mg/dL (70-99) 219 mg/dL (70-99) Sodium Level 137 mmol/L (136-145) Potassium Level 2.8 mmol/L (3.5-5.1) Chloride Level 98 mmol/L (98-107) Carbon Dioxide Level 28 mmol/L (21-32) Anion Gap 11 (6-14) Blood Urea Nitrogen 22 mg/dL (7-20) Creatinine 2.9 mg/dL (0.6-1.0) Estimated GFR (Cockcroft-Gault) 17.5 Glucose Level 206 mg/dL (70-99) Calcium Level 9.3 mg/dL (8.5-10.1) Test 04/04/21 05:50 04/04/21 08:00 Glucose (Fingerstick) 200 mg/dL (70-99) O2 Saturation 99 % (92-99) Arterial Blood pH 7.51 (7.35-7.45) Arterial Blood pCO2 at Patient Temp 30 mmHg (35-46) Arterial Blood pO2 at Patient Temp 147 mmHg (75-108) Arterial Blood HCO3 23 mmol/L (21-28) Arterial Blood Base Excess 1 mmol/L (-3-3) FiO2 40% vent Assessment and Plan Assessmemt and Plan Problems Medical Problems: (1) Ketoacidosis Status: Acute Comment Review of Relevant I have reviewed the following items mazin (where applicable) has been applied. Medications: Current Medications Medications (Trade) Dose Ordered Sig/Pepe Route PRN Reason Start Time Stop Time Status Last Admin Dose Admin Potassium Chloride/Water 100 ml @ 100 mls/hr Q1H IV 04/04/21 07:00 04/04/21 08:59 DC 04/04/21 09:26 Justifications for Admission Other Justification LEO DELGADO MD Apr 04, 2021 11:42
--- NOTE | 2021-04-04 11:43 | PDOC ---
Infectious Disease Note Subjective: Subjective Pt intubated arousable,comfortable Fever pattern improved Vital Signs: Vital Signs Vital Signs Date Time Temp Pulse Resp B/P (MAP) Pulse Ox O2 Delivery O2 Flow Rate FiO2 04/04/21 11:00 77 19 166/82 (110) 100 Ventilator 04/04/21 08:00 98.4 98.4 Physical Exam: PHYSICAL EXAM GENERAL: Intubated HEENT: Normocephalic, atraumatic. Anicteric. Slight bilateral periorbital edema. Neck right IJ HDC clean Trach + LUNGS: Rhonchi. HEART: S1, S2. No murmurs. ABDOMEN: Obese, soft. Bowel sounds present. Nontender, nondistended. Abdominal and pubis mons edema noted. PEG tube in place GENITOURINARY: Kern and fecal tube in place. EXTREMITIES: Edema present no cyanosis. CENTRAL NERVOUS SYSTEM: Intubated. PSYCHIATRIC: Unable to assess. Derm has pressure wounds wound pictures noted in chart. Generalized rash, PICC line February 14, right IJ HDC clean March 07 Medications: Inpatient Meds: Medications reviewed. Labs: Lab Laboratory Tests Test 04/03/21 12:45 04/03/21 16:59 04/03/21 23:43 04/04/21 05:45 Glucose (Fingerstick) 209 mg/dL (70-99) 197 mg/dL (70-99) 219 mg/dL (70-99) Sodium Level 137 mmol/L (136-145) Potassium Level 2.8 mmol/L (3.5-5.1) Chloride Level 98 mmol/L (98-107) Carbon Dioxide Level 28 mmol/L (21-32) Anion Gap 11 (6-14) Blood Urea Nitrogen 22 mg/dL (7-20) Creatinine 2.9 mg/dL (0.6-1.0) Estimated GFR (Cockcroft-Gault) 17.5 Glucose Level 206 mg/dL (70-99) Calcium Level 9.3 mg/dL (8.5-10.1) Test 04/04/21 05:50 04/04/21 08:00 Glucose (Fingerstick) 200 mg/dL (70-99) O2 Saturation 99 % (92-99) Arterial Blood pH 7.51 (7.35-7.45) Arterial Blood pCO2 at Patient Temp 30 mmHg (35-46) Arterial Blood pO2 at Patient Temp 147 mmHg (75-108) Arterial Blood HCO3 23 mmol/L (21-28) Arterial Blood Base Excess 1 mmol/L (-3-3) FiO2 40% vent Micro GRAM STAIN EVALUATION Final Final This specimen is of good quality and is acceptable for routine bacterial culture. Culture results to follow. NO ORGANISMS SEEN. SQUAMOUS EPI CELL:RARE PMN (WBCs):MODERATE Unless otherwise specified, Testing Performed by: [facility] [address] [place] [address] For Inquires, the Physician may contact the Microbiology department at [phone] RESPIRATORY CULTURE Final Final MODERATE GRAM NEGATIVE RODS on 03/18/21 at 1120 FINAL ID= [ACINETOBACTER [id number].] ACINETOBACTER URSINGII. ANTIMICROBIAL SUSCEPTIBILITY Final Comment NEG SAGE 56 ACINETOBACTER URSINGII. ANTIBIOTIC RESULT INTERPRETATION AMPICILLIN/SULBACTAM <=4/2 S AMIKACIN <=16 S CEFTRIAXONE 2 S CEFTAZIDIME 16 I CEFOTAXIME 16 I CIPROFLOXACIN <=0.25 S CEFEPIME 4 S GENTAMICIN <=2 S LEVOFLOXACIN <=0.5 S RUN DATE: 03/19/21 [facility] *LIVE* PAGE 2 RUN TIME: 1120 Specimen Inquiry SPEC: [id number] PATIENT: ARIADNA BANKS [id number] (Continued) Procedure Result CONTINUED ON NEXT PAGE ----- ------- RUN DATE: 03/19/21 [facility] *LIVE* PAGE 3 RUN TIME: 1120 Specimen Inquiry SPEC: [id number] PATIENT: ARIADNA BANKS [id number] (Continued) Procedure Result ANTIMICROBIAL SUSCEPTIBILITY Final (continued) MINOCYCLINE <=4 S MEROPENEM <=1 S TRIMETHOPRIM/SULFAMETHOXAZOLE <=0.5/9.5 S TOBRAMYCIN <=2 S Unless otherwise specified, Testing Performed by: [address] [address] For Inquires, the Physician may contact the Microbiology department at [phone] Culture negative Objective: Assessment: 1. Febrile illness. 2. COVID-19 infection present on date of admission, 02/06/2021. Status post remdesivir, dexamethasone. 3. Acute hypoxic respiratory failure, status post intubation. S/P Trach on 03/17 Trach cultures positive for [place] albicans and now acinebacter ursungi 4. Diabetes. 5. Diarrhea. 6. Hypertension. 7. Hyperlipidemia. 8. Anemia. 9. BOB on HD 10.UC rock albican, ua neg Plan: Plan of Care Cont Meropenem March 18 Continue daptomycin, renal dosing April 02 F/U Blood culture UA urine culture C. diff PCR negative Follow Kern maintenance protocol maintenance groundman Wound care per wound treatment Offload Continue supportive care. Prognosis poor D/W KAITLYNN CURIEL MD Apr 04, 2021 11:43
[2021-04-04] MEDS ORDERED: MAGNESIUM SULFATE 2GM 50 ML IV PRN (13:00)
[2021-04-04] MEDS ORDERED: POTASSIUM CHLORIDE 20MEQ 100 ML IV PRN (13:00)
[2021-04-04] MEDS: MEROPENEM 1 GM in IV NORMAL SALINE 100ML 100 ML IV SCH (16:20)
[2021-04-04] MEDS: fentaNYL HIGH DOSE PCA 55 ML IV PRN (19:36)
[2021-04-04] MEDS: ATORVASTATIN CALCIUM 40 MG TABLET. PO SCH (20:13)
[2021-04-05] VITALS (24 sets, daily range): BP systolic 111–211; BP diastolic 45–108
[2021-04-05] MEDS: DEXMEDETOMIDINE 400 MCG in IV NORMAL SALINE 100ML 96 ML IV PRN ×8 (00:24→21:05)
[2021-04-05] MEDS: PROPOFOL 100 ML IV PRN ×5 (01:34→21:24)
[2021-04-05] MEDS: HALOPERIDOL LACTATE 5 MG/ML VIAL. IVP SCH ×3 (06:00→21:05)
[2021-04-05] MEDS: INSULIN LISPRO 300 UNITS/3 ML VIAL. SQ SCH ×3 (06:00→17:57)
[2021-04-05] MEDS: HEPARIN for SUB-Q USE 5,000 UNIT/ML VIAL. SQ SCH ×3 (06:01→21:07)
[2021-04-05 06:23] LABS: CALCIUM 9.5 mg/dL (8.5-10.1); CREATININE 3.6 mg/dL (0.6-1.0); GFR 13.7; MAGNESIUM 2.1 mg/dL (1.8-2.4); POTASSIUM 3.6 mmol/L (3.5-5.1)
[2021-04-05] MEDS: POTASSIUM CHLORIDE 20MEQ 100 ML IV PRN (06:33)
--- NOTE | 2021-04-05 06:56 | PDOC ---
PULMONARY PROGRESS NOTES DATE: 04/05/21 TIME: 06:54 Subjective trach on vent sedated prop fentanyl precedex tolerated ps 16/5 3 hrs 04/03 hd 04/03 peep 5 fio2 40% Vitals Vital Signs Date Time Temp Pulse Resp B/P (MAP) Pulse Ox O2 Delivery O2 Flow Rate FiO2 04/05/21 06:00 75 25 144/66 (92) 100 Ventilator 04/05/21 04:00 98.7 98.7 Comments on vent sedated HEENT: Other (nc at perrl ) Lungs: Clear Cardiovascular: S1 Abdomen: Soft, Non-tender Skin: Warm Labs Laboratory Tests Test 04/03/21 12:45 04/03/21 16:59 04/03/21 23:43 04/04/21 05:45 Glucose (Fingerstick) 209 mg/dL (70-99) 197 mg/dL (70-99) 219 mg/dL (70-99) Sodium Level 137 mmol/L (136-145) Potassium Level 2.8 mmol/L (3.5-5.1) Chloride Level 98 mmol/L (98-107) Carbon Dioxide Level 28 mmol/L (21-32) Anion Gap 11 (6-14) Blood Urea Nitrogen 22 mg/dL (7-20) Creatinine 2.9 mg/dL (0.6-1.0) Estimated GFR (Cockcroft-Gault) 17.5 Glucose Level 206 mg/dL (70-99) Calcium Level 9.3 mg/dL (8.5-10.1) Test 04/04/21 05:50 04/04/21 08:00 04/04/21 13:03 04/04/21 23:22 Glucose (Fingerstick) 200 mg/dL (70-99) 193 mg/dL (70-99) 226 mg/dL (70-99) O2 Saturation 99 % (92-99) Arterial Blood pH 7.51 (7.35-7.45) Arterial Blood pCO2 at Patient Temp 30 mmHg (35-46) Arterial Blood pO2 at Patient Temp 147 mmHg (75-108) Arterial Blood HCO3 23 mmol/L (21-28) Arterial Blood Base Excess 1 mmol/L (-3-3) FiO2 40% vent Test 04/04/21 23:30 04/05/21 05:54 04/05/21 06:00 Potassium Level 3.9 mmol/L (3.5-5.1) 3.6 mmol/L (3.5-5.1) Glucose (Fingerstick) 116 mg/dL (70-99) Sodium Level 139 mmol/L (136-145) Chloride Level 101 mmol/L (98-107) Carbon Dioxide Level 26 mmol/L (21-32) Anion Gap 12 (6-14) Blood Urea Nitrogen 34 mg/dL (7-20) Creatinine 3.6 mg/dL (0.6-1.0) Estimated GFR (Cockcroft-Gault) 13.7 Glucose Level 128 mg/dL (70-99) Calcium Level 9.5 mg/dL (8.5-10.1) Magnesium Level 2.1 mg/dL (1.8-2.4) Laboratory Tests Test 04/04/21 08:00 04/04/21 13:03 04/04/21 23:22 04/04/21 23:30 O2 Saturation 99 % (92-99) Arterial Blood pH 7.51 (7.35-7.45) Arterial Blood pCO2 at Patient Temp 30 mmHg (35-46) Arterial Blood pO2 at Patient Temp 147 mmHg (75-108) Arterial Blood HCO3 23 mmol/L (21-28) Arterial Blood Base Excess 1 mmol/L (-3-3) FiO2 40% vent Glucose (Fingerstick) 193 mg/dL (70-99) 226 mg/dL (70-99) Potassium Level 3.9 mmol/L (3.5-5.1) Test 04/05/21 05:54 04/05/21 06:00 Glucose (Fingerstick) 116 mg/dL (70-99) Sodium Level 139 mmol/L (136-145) Potassium Level 3.6 mmol/L (3.5-5.1) Chloride Level 101 mmol/L (98-107) Carbon Dioxide Level 26 mmol/L (21-32) Anion Gap 12 (6-14) Blood Urea Nitrogen 34 mg/dL (7-20) Creatinine 3.6 mg/dL (0.6-1.0) Estimated GFR (Cockcroft-Gault) 13.7 Glucose Level 128 mg/dL (70-99) Calcium Level 9.5 mg/dL (8.5-10.1) Magnesium Level 2.1 mg/dL (1.8-2.4) Medications Active Scripts Medications Dose Route/Sig Max Daily Dose Days Date Category Novolog Flexpen (Insulin Aspart) 100 Unit/1 Ml Insuln.pen 3-7 SQ TIDACHC 02/07/21 Reported Lisinopril 5 Mg Tablet 1 Tab PO DAILY 02/07/21 Reported Lantus Solostar (Insulin Glargine,Hum.rec.anlog) 100 Unit/1 Ml Insuln.pen 5 Unit SQ QHS 04/09/15 Reported Atorvastatin Calcium 40 Mg Tablet 40 Mg PO HS 04/09/15 Reported Impression . IMPRESSION: 1. Acute hypoxic respiratory failure secondary to COVID-19 viral pneumonia/acute lung injury and early acute respiratory distress syndrome. S/P intubation 02/17/21. Status post tracheostomy. 2. Nonsmoker. 3. Abnormal chest x-ray consistent with COVID-19 viral pneumonia. 4. Diabetic ketoacidosis--resolved 5. Underlying obesity contributing to hypoxia as well. 6. BOB . hemodialysis started 03/07 7. Fever, 30 ID 8. Abnormal chest x-ray with diffuse interstitial infiltrates compatible with viral pneumonia 9. [place] in the sputum is a contamination 10. Septic shoc 11. s/p lap G-tube 03/27 12. Delirium Plan . Updated 04/05 cont vent support setting reviewed decrease sedation weaning as tolerated need high ps during weaning hd per nephro M-W-F Antibiotics per ID, actinobacter in sputum. elevate hob hep sq pepcid for prophylaxis discussed w rn Updated 04/04 cont vent support setting reviewed decrease sedation weaning as tolerated hd per nephro Antibiotics per ID, actinobacter in sputum. Cultures so far negative elevate hob hep sq pepcid for prophylaxis discussed w rn Updated 04/03 Patient currently undergoing hemodialysis, on assist control ventilation We have been unable to sedate patient and perform spontaneous breathing trials throughout the day with pressure support Antibiotics per ID, actinobacter in sputum. Cultures so far negative We will continue current support Hemodialysis per nephrology Updated 04/02 Reculture sent out Currently on daptomycin meropenem C. difficile negative Continue current support Try to titrate sedation down Hemodialysis per nephrology Nutritional support DVT GI prophylaxis SHERRIE MARMOLEJO MD Apr 05, 2021 06:56
[2021-04-05] MEDS: MULTIVITAMINS,THERAPEUTIC 5 ML ORAL LIQUID. PEG SCH (08:00)
[2021-04-05] MEDS: FAMOTIDINE 20 MG/2 ML VIAL IVP SCH (08:01)
[2021-04-05] MEDS: DOCUSATE 100 MG/10 ML SOLUTION. PO SCH ×2 (08:01→21:00)
[2021-04-05 08:29] LABS: BASE EXCESS ABG -3 mmol/L (-3-3); HCO3 ABG 21 mmol/L (21-28); PCO2 ABG 33 mmHg (35-46); PO2 ABG 142 mmHg (75-108); SAT O2 ABG 98 % (92-99)
[2021-04-05] MEDS: hydrALAZINE 20 MG/ML VIAL. IVP PRN ×2 (09:20→21:06)
[2021-04-05] MEDS: NYSTATIN TOPICAL POWDER 15GM BOTTLE. TP SCH ×2 (09:20→21:05)
[2021-04-05] MEDS: INSULIN GLARGINE SYRINGE. SQ SCH ×2 (09:27→21:13)
[2021-04-05 09:36] LABS: FIO2 ABG 40% VENT
--- NOTE | 2021-04-05 10:51 | PDOC ---
[employer] PROGRESS NOTE Date of Service DOS: DATE: 04/05/21 TIME: 10:50 Chief Complaint Chief Complaint CC: Covid-19 DKA Hypotension Nausea Vomiting Combined metabolic and respiratory acidosis Acute electrolyte derangementhyponatremia, hypochloremia due to volume depletion Hyperglycemia BOB due to ATN, requiring dialysis Erythrocytosis Candiduria Sacral decubitus ulcer S/P Trach on (03/17/21) Trach cultures positive for [place] albicans and now acinebacter ursungi Patient febrile morning of 04/02. Adding daptomycin per infectious disease. History of Present Illness History of Present Illness Ms Borges is a 46 year old female who presented with nausea/vomiting since 7 AM 02/06/2021 in the morning. Patient stated that her recently tested positive for Covid. She states that he "coughed in my face because he thought it was funny." She reports subjective fevers and chills and nausea/vomiting. Denies sore throat, cough, shortness of breath. No chest pain. Does have some upper abdominal discomfort after vomiting, that she attributes to muscular strain. She was not vaccinated for Covid. 02/08: No acute events overnight. Patient seen and examined bedside and resting comfortably. Continues to complain of nausea not able to tolerate any diet at this time. Saturating 98% on room air. Patient's chart, labs, images were reviewed and discussed with RN 02/09: Afebrile, currently breathing on room air. Still with complaints of nausea and vomiting x3 today. States that she has history of similar symptoms that have been mildly improved with IV Dilaudid. 02/10: Patient febrile today with T-max 102.2 F. She still admits to nausea, denies any further vomiting. We will continue to provide supportive care and monitor for any recurrent fevers overnight. Patient continues to improve may discharge tomorrow to continue self-isolation. 02/11: Febrile overnight, T-max 102.3 F. She did become hypoxic overnight, currently breathing on 4 L nasal cannula. Also admits to associated vomiting or diarrhea overnight. Discussed with RN, will initiate remdesivir and closely monitor LFTs. IV Decadron, and prophylactic antibiotics. 02/12: Low-grade fever overnight, T-max 99.7. Currently breathing on room air. Will discontinue remdesivir, steroids, and antibiotics; will observe overnight. Still with complaints of vomiting x1 and diarrhea. We will continue to provide supportive care and hope to discharge in the next day or so. 02/13: Afebrile. Still complains of intermittent diarrhea. At the time of my evaluation she was breathing on 6 L nasal cannula; this is somewhat misleading as patient states that she did not feel short of breath but was placed on 6 L by nursing staff overnight. 02/14: Afebrile, currently breathing on 8 L nasal cannula. There has been some misleading documentation, chart oxygen this patient is requiring. Discussed with RN, will resume remdesivir to complete total of 5 days. Continue to monitor LFTs. Will add steroids, Rocephin, and azithromycin. 02/15: Afebrile. Became much more hypoxic overnight, requiring BiPAP. At the time of my evaluation she is still breathing on BiPAP. Consultation was placed to pulmonology. Had discussion with Dr. Myrick about initiating Tocilizumab 02/16: No acute events overnight. Patient becoming more hypoxic saturating 94% and requiring BiPAP. Patient will be transferred to the ICU at this time. For worsening clinical status. Discussed with pulmonary. Patient's chart, labs, images were reviewed and discussed with RN 02/17: Transferred to ICU yesterday afternoon. Seen and examined at bedside she remains on 100% FiO2 on BiPAP. Respirations do appear somewhat labored. Suspect intubation may be impending. We will closely monitor. Increase lisinopril to 20 today. 02/18: Patient required intubation yesterday afternoon. Saw and examined this morning. She is intubated and sedated. Increase insulin today. Covid protocol ordered. Wean as tolerated. Plan of care discussed with bedside nurse. 02/19: Bedside. She remains intubated and sedated. Continue Covid protocol. Wean oxygen sedation as tolerated. Pulmonary following. Plan of care discussed with bedside RN. 02/20: Patient seen and examined at bedside. She remains intubated and sedated. No major clinical changes. Continue current treatment. Pulmonary following. Plan of care discussed with bedside RN. 02/21: Patient seen and examined at bedside. Remains intubated and sedated date and admission clinical changes. Increase free water flushes today due to hypernatremia. Plan of care discussed with bedside nurse. 02/22: Patient seen and examined at bedside. O2 requirement actually improving, although remains intubated. Possible SBT in the coming days. Hypernatremia improving. Plan of care discussed bedside RN. 02/23: Patient remains in ICU on ventilator with FiO2 100%, PEEP 7. Repeat chest x-ray yesterday showed diffuse bilateral pulmonary opacities with no interval improvement. Will discontinue Rocephin and initiate Zosyn. We will continue IV steroids for a full 10-day course 02/24: Afebrile. On vent with FiO2 40%, PEEP 6. Her Coreg has been held due to persistent bradycardia. No documented history of systolic heart failure or previous echocardiogram. Will need to obtain echocardiogram prior to discharge. Continue IV steroids and antibiotics. 02/25: Afebrile. Remains ventilated with FiO2 45%, PEEP 6. Chest x-ray today showed slight improvement of the pulmonary infiltrates, no pneumothorax. Completed 10-day course of IV Decadron. Will initiate slow Solu-Medrol taper. Continue IV Zosyn. Continue supportive care. 02/26: Afebrile. On vent with FiO2 45%, PEEP 6. Completed 10 days of IV Decadron. Will continue IV Zosyn. Continue supportive care. Critical care time 30 minutes spent reviewing charts, reviewing imaging, reviewing labs, discussion with RN. 02/27: Afebrile. On vent with FiO2 45%, PEEP 6. Completed 10 days of steroids and completed remdesivir. Continue with IV Zosyn. CPAP trial yesterday. Continue NG tube and supportive care. 02/28:. Patient remains on vent with FiO2 40%, PEEP 5. Afebrile. Completed steroids and remdesivir. Some noted hypoglycemia overnight, will de-escalate basal insulin. Continue IV Zosyn. Ventilator management per pulmonology. Continue NG tube and supportive care. 03/01: On vent with FiO2 40%, PEEP 5. Afebrile. Completed steroids and remdesivir. Blood glucose well controlled. Continue empiric antibiotics with Zosyn. Ventilator management per pulmonology. Continue NG tube and supportive care. 03/02: No acute events overnight. Patient hypotensive the morning due to oversedation. Will wean off sedation and keep antihypertensive medications on board. Currently saturating 100% on vent settings of 18/450/40/5. Will attempt spontaneous breathing trial today to see how patient does. 03/03: No acute events overnight. Patient saturating 98% on vent settings of 18/450/40/5. Will defer spontaneous breathing trials to pulmonary at this time. Patient's chart, labs, images were reviewed and discussed with RN 03/04: No acute events overnight. Patient saturating 9 9% on vent settings of 18/450/30/5. Patient currently is unable to tolerate weaning. Per pulmonary. Patient's chart, labs, images were reviewed and discussed with RN 03/05: No acute events overnight. Patient is saturating 97% on vent settings of 18/450/55/5. Her FiO2 needs to be increased due to abnormal ABG with 7.3 //24. Patient's chart, labs, images were reviewed and discussed with RN 03/06: No acute events overnight. Patient saturating 94% on vent settings of 18/450/55/5. Chest x-ray showing increase in pulmonary infiltrates. Wound care is consulted for decubitus ulcer patient's chart, labs, images were reviewed and discussed with RN 03/07: No acute events overnight. Patient saturating 94% on vent settings of 20/450/70/8. Patient now heading into renal failure with her creatinine bumped up from 1.5-4.2. Decreased urine output. Plan for hemodialysis today and temporary catheter placement and nephrology is consulted. 03/08: No acute events overnight. Patient did have a nausea vomiting episode and tube feeds were held. KUB repeat shows NG tube still in the stomach. Will resume tube feeds at trickle and advance to goal today. Will start hemodialysis soon. 03/09: Seen on vent 20/450/60%/8. ABG 7.2 WBC 11.4, Hb 7.4, platelets 188, NA 131, K4.9, BUN 48, CR 51, glucose 199, phosphorus 7.9, mag 2.2, AST 265 ALT 219, albumin 1.1. Chest radiograph appears unchanged from prior. Dialysis x1 today 03/10: Afebrile. Seen on vent, 20/450/60/7 with ABG 7.3 . Tolerated dialysis well on 03/09. LFTs similar. 03/11: Afebrile. Seen on vent, sedated. Still requiring Levophed for BP support. WBC 16.7, Hb 8.1, NA 130, ABG 7.3 on 55% FiO2 PEEP 6. On Zosyn and Zyvox Diflucan. Dialysis today 03/12: Afebrile. Still requiring Levophed for BP support sedated with Versed febrile Precedex. WBC 16.1, Hb 8.5, platelets 185, NA 133. Trach plan tentatively 03/17. O2 saturations 93% on 50% FiO2 PEEP 6. ABG 7. On Zosyn and Zyvox Diflucan. 03/13: Afebrile. Still on Levophed for BP support lightly sedated. 7. on 45% FiO2. Plan for dialysis today. On Zosyn and Zyvox Diflucan. More swollen today. 03/14: Afebrile. Weaning down off Levophed. WBC 14.9 NA 132. O2 saturations 92% on 45% FiO2 PEEP 5. Afebrile. O2 saturations 91% on FiO2 45% PEEP 6. Continued on Zosyn and Zyvox Diflucan. Tentative trach planned 03/17/2021 CC time 31 minutes 03/16/21: Patient seen and examined in ICU. Periorbital as well as upper and lower extremity edema noted. OG feed running at 30cc/hr. Still on vent on pressure control with a rate of 24 with 45% FiO2. Patient has rectal bag. Currently she has 98% O2 sat. Currently sedated with Dexmedetomidine, Propofol, Versed, and Fentanyl. Discussed with RN. Chart reviewed. 03/17/21: Patient was seen and examined in the ICU today. Periorbital edema as well as abdominal and mons pubis edema was noted. Patient still on vent on pressure control with Fi02 of 45% plus 6 PEEP. Patient had rectal bag. Currently sedated on Dexmedetomidine, Propofol, Versed, and Fentanyl. Discussed with RN. Chart reviewed. 03/18/21: Patient seen and examined in ICU. On vent via trach that was placed yesterday. Vent settings are Pressure Control of 40 with FiO2 of 45% and 6 PEEP. Trach clean and dry. Orbital swelling still present. Pupils are sluggish. Patient on TPN running at 30cc/hr. Kern to bedside and rectal bag in place. Current O2 sat at 94%. Sedated on Dexmedetomidine, Propofol, Versed, and Fentanyl. Discussed with RN. Chart reviewed. 03/19/21: Patient was seen and examined in the ICU today. Currently on vent via trach on pressure control of 42, rate of 24, FiO2 of 45%, and 6 PEEP. O2 sat is at 97% while patient is being examined. Trach is clean and dry. PICC line is in place on right arm. Periorbital swelling has decreased slightly since examined yesterday. Patient is sedated on Dexmedetomidine, Propofol, Versed, and Fentanyl. Discussed with RN. Chart reviewed. 03/20/21: Patient seen and examined in the ICU. Periorbital edema is slightly decreased since yesterday. O2 sat while being examined was 93%. NG tube in place and running at 30cc/hr. Patient on vent via trach on pressure control of 40 with FiO2 of 45 and rate of 24. Sedated on Dexmedetomidine, Propofol, Versed, and Fentanyl. PICC line in place. Kern to bedside. Rectal bag present. Discussed with RN. Chart reviewed. 03/21/21: Patient was seen and examined in the ICU today. She was semi-sedated.. She was on Dexmedetomidine and Fentanyl. We are holding the Propofol. Her eyes were periodically open but she was not making meaningful eye contact or tracking. On vent via trach with pressure control of 40 and FiO2 at 45. Rate was 24. PEEP was 5. Trach was clean and dry. While being examined, her O2 sat was 94%. Rectal bag and Kern to bedside in place. NG tube in place and feeding at 30cc/hr. IV fluids still running. Levophed has been stopped. Discussed with RN. Chart reviewed. 03/22/21: Patient was seen and examined in the ICU. She was semi-sedated on Propofol and Dexmedetomidine. Her eyes were open but she did not make meaningful eye contact. Her blood pressure was elevated (198/102) while being examined and she had just been given hydralazine to lower it. There are plans to place a PEG tube tomorrow. Currently on vent via trach on pressure control of 40 with FiO2 of 45%, 5 PEEP, and a rate of 24. Current O2 sat is 98%. She is feeding through an NG tube at 30cc/hr. Rectal bag and Kern to bedside present. SCDs on patient for DVT prophylaxis. She did not do her daily dialysis today but the plan is to start back on that tomorrow. Discussed with RN. Chart reviewed. 03/23/2021: Patient remains in ICU on ventilator. FiO2 40%, PEEP 5. Trach cultures positive for [place] albicans and acinebacter ursungi. We will contin ue treatment with IV antibiotics and micafungin, per ID. HD per nephrology. Plans for PEG tube placement today. 30 minutes critical care time was spent reviewing charts, reviewing labs, reviewing imaging, discussion with RN. 03/24/2021: Afebrile. On vent with FiO2 45%, PEEP 5. Had attempted PEG placement per GI yesterday, but unable to locate safe path for PEG; will consider surgical opinion. Once PEG is in place she should be stable for LTAC transfer when accepted. Continue antibiotics, per ID. 30 minutes critical care time was spent reviewing charts, reviewing labs, reviewing imaging, discussion with RN. 03/25/2021: Febrile overnight with T-max 101.5 F. On vent with FiO2 45%, PEEP 5. Surgery has been consulted with tentative plans for laparoscopic versus open gastrostomy placement tomorrow. Trach cultures positive for [place] albicans and now acinebacter ursungi; will continue antibiotic management, per ID. Hemodialysis, per nephrology. Patient needing LTAC placement, but currently without benefits. day worker following for discharge planning. Critical care time 30 minutes spent reviewing charts, reviewing labs, reviewing imaging, discussion with RN. 03/26/2021: Febrile today with T-max 100.5 F. Awake on vent with FiO2 45%, PEEP 5. When I ask if she remembers any she nods. G-tube placement scheduled for tomorrow, per general surgery. Chest x-ray today showed slight interval increase in diffuse infiltrate. Continue antibiotic management, per ID. Hemodialysis per nephrology. Reportedly did not tolerate CPAP trial this morning. day worker following for LTAC placement. Critical care time 30 minutes spent reviewing charts, reviewing labs, reviewing imaging, discussion with RN. 03/27/2021: On vent with FiO2 45%, PEEP 5. Afebrile today. Continue treatment of acute renal failure requiring HD, per nephrology. Monitor kidney function for recovery. G-tube placement scheduled for today, per general surgery. Likely LTAC placement soon, but this is been a difficult as she is self-pay without benefits; rn social services following. Critical care time 30 minutes spent reviewing charts, reviewing labs, reviewing imaging, discussion with RN. 03/28/2021: Afebrile. On vent with FiO2 40%, PEEP 5. Had laparoscopic gastrostomy tube placed yesterday, per general surgery. Continue treatment of acute renal failure requiring HD, per nephrology. Continue IV antibiotics, per ID. Likely LTAC placement soon, but this is been a difficult as she is self-pay without benefits; rn social services following. Critical care time 30 minutes spent reviewing charts, reviewing labs, reviewing imaging, discussion with RN. 03/29/2021: Afebrile. On vent with FiO2 45%, PEEP 5. S/P laparoscopic gastrostomy tube; tube feeds running. HD, per nephrology. Continue meropenem, per ID. Anticipate LTAC placement soon now that PEG has being placed; rn social services helping in these regards. Critical care time 30 minutes spent reviewing charts, reviewing labs, reviewing imaging, discussion with RN. 03/30 No major events or clinical changes overnight. Patient evaluated at bedside this morning on trach and G-tube. Tolerating these well. Has been working on insurance for patient for placement as she will need long-term care. Guarded prognosis. Plan of care discussed with bedside nurse. 03/31 No major clinical changes. Remains trached. Sedated. Continue current plan. 04/01 No changes. Patient resting in bed when evaluated sedated. is supposed to be working on insurance for placement for the patient. Otherwise no changes. 04/02 Patient febrile overnight, daptomycin added this morning per infectious disease. Otherwise no major clinical changes. Awaiting insurance. Infectious disease, pulmonary and renal following. Plan of care discussed with bedside RN. 04/03 Patient undergoing dialysis today. Evaluated at bedside this morning. otherwise continue current plan. supposed working on insurance. 04/04 No major overnight changes. Continue current plan. 04/05 Patient notably more movement this morning eyes open resting in bed otherwise no major changes. Continue current plan. Insurance pending. Vitals/I&O Vitals/I&O: Vital Signs Date Time Temp Pulse Resp B/P (MAP) Pulse Ox O2 Delivery O2 Flow Rate FiO2 04/05/21 09:24 100 Ventilator 04/05/21 09:20 83 202/101 04/05/21 06:00 25 04/05/21 04:00 98.7 98.7 l I & O 04/04/21 04/04/21 04/05/21 14:59 22:59 06:59 Intake Total 344 ml 1925 ml 1126 ml Output Total 745 ml 1435 ml 165 ml Balance -401 ml 490 ml 961 ml Physical Exam Physical Exam: GENERAL: Intubated HEENT: Normocephalic, atraumatic. Anicteric. Slight bilateral periorbital edema. Neck right IJ HDC clean Trach + LUNGS: Rhonchi. HEART: S1, S2. No murmurs. ABDOMEN: Obese, soft. Bowel sounds present. Nontender, nondistended. Abdominal and pubis mons edema noted. PEG tube in place GENITOURINARY: Kern and fecal tube in place. EXTREMITIES: Edema present no cyanosis. CENTRAL NERVOUS SYSTEM: Intubated. PSYCHIATRIC: Unable to assess. Derm has pressure wounds wound pictures noted in chart. Generalized rash, PICC line February 14, right IJ HDC clean March 07 General: No acute distress, Other (sedated) Heart: Regular rate, Normal S1, Normal S2 Lungs: Clear Abdomen: Soft, Other (G-tube in place) Extremities: Other (ANASARCA) Skin: No rashes, No significant lesion Labs Labs: Laboratory Tests Test 04/04/21 13:03 04/04/21 23:22 04/04/21 23:30 04/05/21 05:54 Glucose (Fingerstick) 193 mg/dL (70-99) 226 mg/dL (70-99) 116 mg/dL (70-99) Potassium Level 3.9 mmol/L (3.5-5.1) Test 04/05/21 06:00 04/05/21 08:00 Sodium Level 139 mmol/L (136-145) Potassium Level 3.6 mmol/L (3.5-5.1) Chloride Level 101 mmol/L (98-107) Carbon Dioxide Level 26 mmol/L (21-32) Anion Gap 12 (6-14) Blood Urea Nitrogen 34 mg/dL (7-20) Creatinine 3.6 mg/dL (0.6-1.0) Estimated GFR (Cockcroft-Gault) 13.7 Glucose Level 128 mg/dL (70-99) Calcium Level 9.5 mg/dL (8.5-10.1) Magnesium Level 2.1 mg/dL (1.8-2.4) O2 Saturation 98 % (92-99) Arterial Blood pH 7.43 (7.35-7.45) Arterial Blood pCO2 at Patient Temp 33 mmHg (35-46) Arterial Blood pO2 at Patient Temp 142 mmHg (75-108) Arterial Blood HCO3 21 mmol/L (21-28) Arterial Blood Base Excess -3 mmol/L (-3-3) FiO2 40% vent Assessment and Plan Assessmemt and Plan Problems Medical Problems: (1) Ketoacidosis Status: Acute Comment Review of Relevant I have reviewed the following items mazin (where applicable) has been applied. Medications: Current Medications Medications (Trade) Dose Ordered Sig/Pepe Route PRN Reason Start Time Stop Time Status Last Admin Dose Admin Potassium Chloride/Water 100 ml @ 50 mls/hr PRN Q6HRS PRN IV For K < 3.7 04/04/21 13:00 04/05/21 06:33 Potassium Chloride/Water 100 ml @ 100 mls/hr Q1H IV 04/04/21 14:00 04/04/21 15:59 DC 04/04/21 15:12 Justifications for Admission Other Justification LEO DELGADO MD Apr 05, 2021 10:51
--- NOTE | 2021-04-05 12:44 | PDOC ---
Infectious Disease Note Subjective: Subjective Pt intubated arousable,comfortable T 100.2 Vital Signs: Vital Signs Vital Signs Date Time Temp Pulse Resp B/P (MAP) Pulse Ox O2 Delivery O2 Flow Rate FiO2 04/05/21 12:00 100.2 86 30 178/83 (114) 99 Ventilator 100.2 Physical Exam: PHYSICAL EXAM GENERAL: Intubated HEENT: Normocephalic, atraumatic. Anicteric. Slight bilateral periorbital edema. Neck right IJ HDC clean Trach + LUNGS: Rhonchi. HEART: S1, S2. No murmurs. ABDOMEN: Obese, soft. Bowel sounds present. Nontender, nondistended. Abdominal and pubis mons edema noted. PEG tube in place GENITOURINARY: Kern and fecal tube in place. EXTREMITIES: Edema present no cyanosis. CENTRAL NERVOUS SYSTEM: Intubated. PSYCHIATRIC: Unable to assess. Derm has pressure wounds wound pictures noted in chart. Generalized rash, PICC line February 14, right IJ HDC clean March 07 Medications: Inpatient Meds: Medications reviewed. Labs: Lab Laboratory Tests Test 04/04/21 13:03 04/04/21 23:22 04/04/21 23:30 04/05/21 05:54 Glucose (Fingerstick) 193 mg/dL (70-99) 226 mg/dL (70-99) 116 mg/dL (70-99) Potassium Level 3.9 mmol/L (3.5-5.1) Test 04/05/21 06:00 04/05/21 08:00 04/05/21 12:01 04/05/21 12:10 Sodium Level 139 mmol/L (136-145) Potassium Level 3.6 mmol/L (3.5-5.1) 4.1 mmol/L (3.5-5.1) Chloride Level 101 mmol/L (98-107) Carbon Dioxide Level 26 mmol/L (21-32) Anion Gap 12 (6-14) Blood Urea Nitrogen 34 mg/dL (7-20) Creatinine 3.6 mg/dL (0.6-1.0) Estimated GFR (Cockcroft-Gault) 13.7 Glucose Level 128 mg/dL (70-99) Calcium Level 9.5 mg/dL (8.5-10.1) Magnesium Level 2.1 mg/dL (1.8-2.4) O2 Saturation 98 % (92-99) Arterial Blood pH 7.43 (7.35-7.45) Arterial Blood pCO2 at Patient Temp 33 mmHg (35-46) Arterial Blood pO2 at Patient Temp 142 mmHg (75-108) Arterial Blood HCO3 21 mmol/L (21-28) Arterial Blood Base Excess -3 mmol/L (-3-3) FiO2 40% vent Glucose (Fingerstick) 268 mg/dL (70-99) Micro GRAM STAIN EVALUATION Final Final This specimen is of good quality and is acceptable for routine bacterial culture. Culture results to follow. NO ORGANISMS SEEN. SQUAMOUS EPI CELL:RARE PMN (WBCs):MODERATE Unless otherwise specified, Testing Performed by: [facility] [address] [place] [address] For Inquires, the Physician may contact the Microbiology department at [phone] RESPIRATORY CULTURE Final Final MODERATE GRAM NEGATIVE RODS on 03/18/21 at 1120 FINAL ID= [ACINETOBACTER [email or web address].] ACINETOBACTER URSINGII. ANTIMICROBIAL SUSCEPTIBILITY Final Comment NEG SAGE 56 ACINETOBACTER URSINGII. ANTIBIOTIC RESULT INTERPRETATION AMPICILLIN/SULBACTAM <=4/2 S AMIKACIN <=16 S CEFTRIAXONE 2 S CEFTAZIDIME 16 I CEFOTAXIME 16 I CIPROFLOXACIN <=0.25 S CEFEPIME 4 S GENTAMICIN <=2 S LEVOFLOXACIN <=0.5 S RUN DATE: 03/19/21 [facility] *LIVE* PAGE 2 RUN TIME: 1120 Specimen Inquiry SPEC: [id number] PATIENT: ARIADNA BANKS [id number] (Continued) Procedure Result CONTINUED ON NEXT PAGE RUN DATE: 03/19/21 [facility] *LIVE* PAGE 3 RUN TIME: 1120 Specimen Inquiry SPEC: [id number] PATIENT: ARIADNA BANKS [id number] (Continued) --- --------- Procedure Result ANTIMICROBIAL SUSCEPTIBILITY Final (continued) MINOCYCLINE <=4 S MEROPENEM <=1 S TRIMETHOPRIM/SULFAMETHOXAZOLE <=0.5/9.5 S TOBRAMYCIN <=2 S Unless otherwise specified, Testing Performed by: [address] [address] For Inquires, the Physician may contact the Microbiology department at [phone] Culture negative Objective: Assessment: 1. Febrile illness. 2. COVID-19 infection present on date of admission, 02/06/2021. Status post remdesivir, dexamethasone. 3. Acute hypoxic respiratory failure, status post intubation. S/P Trach on 03/17 Trach cultures positive for [place] albicans and now acinebacter ursungi 4. Diabetes. 5. Diarrhea. 6. Hypertension. 7. Hyperlipidemia. 8. Anemia. 9. BOB on HD 10.UC rock albican, ua neg Plan: Plan of Care Cont Meropenem March 18 Continue daptomycin, renal dosing April 02 F/U Blood culture UA urine culture C. diff PCR negative Follow Kern maintenance protocol supervisor maintenance Wound care per wound treatment Offload DC PICC line Continue supportive care. Prognosis poor D/W KAITLYNN CURIEL MD Apr 05, 2021 12:44
[2021-04-05] MEDS: MEROPENEM 1 GM in IV NORMAL SALINE 100ML 100 ML IV SCH (16:06)
[2021-04-05] MEDS: ATORVASTATIN CALCIUM 40 MG TABLET. PO SCH (21:05)
[2021-04-06] VITALS (24 sets, daily range): BP systolic 113–192; BP diastolic 65–100
[2021-04-06] MEDS: INSULIN LISPRO 300 UNITS/3 ML VIAL. SQ SCH ×4 (00:05→18:59)
[2021-04-06] MEDS: DEXMEDETOMIDINE 400 MCG in IV NORMAL SALINE 100ML 96 ML IV PRN ×8 (00:12→21:54)
[2021-04-06] MEDS: POTASSIUM CHLORIDE 20MEQ 100 ML IV PRN ×2 (00:39→09:09)
[2021-04-06] MEDS: PROPOFOL 100 ML IV PRN ×2 (00:43→04:16)
[2021-04-06] MEDS: hydrALAZINE 20 MG/ML VIAL. IVP PRN (02:45)
[2021-04-06] MEDS: HALOPERIDOL LACTATE 5 MG/ML VIAL. IVP SCH ×3 (06:25→21:55)
[2021-04-06] MEDS: HEPARIN for SUB-Q USE 5,000 UNIT/ML VIAL. SQ SCH ×3 (06:25→21:59)
[2021-04-06 06:48] LABS: CALCIUM 9.4 mg/dL (8.5-10.1); CREATININE 3.9 mg/dL (0.6-1.0); GFR 12.5; POTASSIUM 3.5 mmol/L (3.5-5.1)
--- NOTE | 2021-04-06 07:57 | PDOC ---
PULMONARY PROGRESS NOTES DATE: 04/06/21 TIME: 07:57 Subjective Patient currently undergoing hemodialysis, follows commands, currently on 40% FiO2 Vitals Vital Signs Date Time Temp Pulse Resp B/P (MAP) Pulse Ox O2 Delivery O2 Flow Rate FiO2 04/06/21 07:00 92 18 165/83 (110) 100 Ventilator 04/06/21 04:00 97.8 97.8 HEENT: Other (nc at perr ) Lungs: Clear Cardiovascular: S1 Abdomen: Soft, Non-tender Skin: Warm Labs Laboratory Tests Test 04/04/21 08:00 04/04/21 13:03 04/04/21 23:22 04/04/21 23:30 O2 Saturation 99 % (92-99) Arterial Blood pH 7.51 (7.35-7.45) Arterial Blood pCO2 at Patient Temp 30 mmHg (35-46) Arterial Blood pO2 at Patient Temp 147 mmHg (75-108) Arterial Blood HCO3 23 mmol/L (21-28) Arterial Blood Base Excess 1 mmol/L (-3-3) FiO2 40% vent Glucose (Fingerstick) 193 mg/dL (70-99) 226 mg/dL (70-99) Potassium Level 3.9 mmol/L (3.5-5.1) Test 04/05/21 05:54 04/05/21 06:00 04/05/21 08:00 04/05/21 12:01 Glucose (Fingerstick) 116 mg/dL (70-99) 268 mg/dL (70-99) Sodium Level 139 mmol/L (136-145) Potassium Level 3.6 mmol/L (3.5-5.1) Chloride Level 101 mmol/L (98-107) Carbon Dioxide Level 26 mmol/L (21-32) Anion Gap 12 (6-14) Blood Urea Nitrogen 34 mg/dL (7-20) Creatinine 3.6 mg/dL (0.6-1.0) Estimated GFR (Cockcroft-Gault) 13.7 Glucose Level 128 mg/dL (70-99) Calcium Level 9.5 mg/dL (8.5-10.1) Magnesium Level 2.1 mg/dL (1.8-2.4) O2 Saturation 98 % (92-99) Arterial Blood pH 7.43 (7.35-7.45) Arterial Blood pCO2 at Patient Temp 33 mmHg (35-46) Arterial Blood pO2 at Patient Temp 142 mmHg (75-108) Arterial Blood HCO3 21 mmol/L (21-28) Arterial Blood Base Excess -3 mmol/L (-3-3) FiO2 40% vent Test 04/05/21 12:10 04/05/21 17:48 04/05/21 18:25 04/06/21 00:00 Potassium Level 4.1 mmol/L (3.5-5.1) 4.2 mmol/L (3.5-5.1) Glucose (Fingerstick) 145 mg/dL (70-99) 276 mg/dL (70-99) Test 04/06/21 00:01 04/06/21 06:24 04/06/21 06:30 Potassium Level 3.6 mmol/L (3.5-5.1) 3.5 mmol/L (3.5-5.1) Glucose (Fingerstick) 182 mg/dL (70-99) Sodium Level 142 mmol/L (136-145) Chloride Level 103 mmol/L (98-107) Carbon Dioxide Level 26 mmol/L (21-32) Anion Gap 13 (6-14) Blood Urea Nitrogen 45 mg/dL (7-20) Creatinine 3.9 mg/dL (0.6-1.0) Estimated GFR (Cockcroft-Gault) 12.5 Glucose Level 182 mg/dL (70-99) Calcium Level 9.4 mg/dL (8.5-10.1) Magnesium Level 2.2 mg/dL (1.8-2.4) Laboratory Tests Test 04/05/21 08:00 04/05/21 12:01 04/05/21 12:10 04/05/21 17:48 O2 Saturation 98 % (92-99) Arterial Blood pH 7.43 (7.35-7.45) Arterial Blood pCO2 at Patient Temp 33 mmHg (35-46) Arterial Blood pO2 at Patient Temp 142 mmHg (75-108) Arterial Blood HCO3 21 mmol/L (21-28) Arterial Blood Base Excess -3 mmol/L (-3-3) FiO2 40% vent Glucose (Fingerstick) 268 mg/dL (70-99) 145 mg/dL (70-99) Potassium Level 4.1 mmol/L (3.5-5.1) Test 04/05/21 18:25 04/06/21 00:00 04/06/21 00:01 04/06/21 06:24 Potassium Level 4.2 mmol/L (3.5-5.1) 3.6 mmol/L (3.5-5.1) Glucose (Fingerstick) 276 mg/dL (70-99) 182 mg/dL (70-99) Test 04/06/21 06:30 Sodium Level 142 mmol/L (136-145) Potassium Level 3.5 mmol/L (3.5-5.1) Chloride Level 103 mmol/L (98-107) Carbon Dioxide Level 26 mmol/L (21-32) Anion Gap 13 (6-14) Blood Urea Nitrogen 45 mg/dL (7-20) Creatinine 3.9 mg/dL (0.6-1.0) Estimated GFR (Cockcroft-Gault) 12.5 Glucose Level 182 mg/dL (70-99) Calcium Level 9.4 mg/dL (8.5-10.1) Magnesium Level 2.2 mg/dL (1.8-2.4) Medications Active Scripts Medications Dose Route/Sig Max Daily Dose Days Date Category Novolog Flexpen (Insulin Aspart) 100 Unit/1 Ml Insuln.pen 3-7 SQ TIDACHC 02/07/21 Reported Lisinopril 5 Mg Tablet 1 Tab PO DAILY 02/07/21 Reported Lantus Solostar (Insulin Glargine,Hum.rec.anlog) 100 Unit/1 Ml Insuln.pen 5 Unit SQ QHS 04/09/15 Reported Atorvastatin Calcium 40 Mg Tablet 40 Mg PO HS 04/09/15 Reported Impression . IMPRESSION: 1. Acute hypoxic respiratory failure secondary to COVID-19 viral pneumonia/acute lung injury and early acute respiratory distress syndrome. S/P intubation 02/17/21. Status post tracheostomy. 2. Nonsmoker. 3. Abnormal chest x-ray consistent with COVID-19 viral pneumonia. 4. Diabetic ketoacidosis--resolved 5. Underlying obesity contributing to hypoxia as well. 6. BOB . hemodialysis started 03/07 7. Fever, 30 ID 8. Abnormal chest x-ray with diffuse interstitial infiltrates compatible with viral pneumonia 9. [place] in the sputum is a contamination 10. Septic shoc 11. s/p lap G-tube 03/27 12. Delirium Plan . Updated 04/06 Antibiotics per ID Follow cultures Continue current vent settings Pressure support as tolerated once hemodialysis has been completed DVT GI prophylaxis Nutritional support Updated 04/05 cont vent support setting reviewed decrease sedation weaning as tolerated need high ps during weaning hd per nephro M-W-F Antibiotics per ID, actinobacter in sputum. elevate hob hep sq pepcid for prophylaxis discussed w rn Updated 04/04 cont vent support setting reviewed decrease sedation weaning as tolerated hd per nephro Antibiotics per ID, actinobacter in sputum. Cultures so far negative elevate hob hep sq pepcid for prophylaxis discussed w rn Updated 04/03 Patient currently undergoing hemodialysis, on assist control ventilation We have been unable to sedate patient and perform spontaneous breathing trials throughout the day with pressure support Antibiotics per ID, actinobacter in sputum. Cultures so far negative We will continue current support Hemodialysis per nephrology MONTEZ OROPEZA MD Apr 06, 2021 07:57
--- NOTE | 2021-04-06 08:43 | PDOC ---
PROGRESS NOTES Date of Service: DATE: 04/06/21 TIME: 08:41 Chief Complaint Chief Complaint impression Covid-19 DKA Hypotension Nausea Vomiting Combined metabolic and respiratory acidosis Acute electrolyte derangementhyponatremia, hypochloremia due to volume depletion Hyperglycemia BOB due to ATN, requiring dialysis Erythrocytosis Candiduria Sacral decubitus ulcer S/P Trach on (03/17/21) Trach cultures positive for [place] albicans and now acinebacter ursungi Patient febrile morning of 04/02. Adding daptomycin per infectious disease. History of Present Illness History of Present Illness Ms Banks is a 46 year old female who presented with nausea/vomiting since 7 AM 02/06/2021 in the morning. Patient stated that her recently tested positive for Covid. She states that he "coughed in my face because he thought it was funny." She reports subjective fevers and chills and nausea/vomiting. Denies sore throat, cough, shortness of breath. No chest pain. Does have some upper abdominal discomfort after vomiting, that she attributes to muscular strain. She was not vaccinated for Covid. 02/08: No acute events overnight. Patient seen and examined bedside and resting comfortably. Continues to complain of nausea not able to tolerate any diet at this time. Saturating 98% on room air. Patient's chart, labs, images were reviewed and discussed with RN 2: Afebrile, currently breathing on room air. Still with complaints of nausea and vomiting x3 today. States that she has history of similar symptoms that have been mildly improved with IV Dilaudid. 02/10: Patient febrile today with T-max 102.2 F. She still admits to nausea, denies any further vomiting. We will continue to provide supportive care and monitor for any recurrent fevers overnight. Patient continues to improve may discharge tomorrow to continue self-isolation. 02/11: Febrile overnight, T-max 102.3 F. She did become hypoxic overnight, currently breathing on 4 L nasal cannula. Also admits to associated vomiting or diarrhea overnight. Discussed with RN, will initiate remdesivir and closely monitor LFTs. IV Decadron, and prophylactic antibiotics. 02/12: Low-grade fever overnight, T-max 99.7. Currently breathing on room air. Will discontinue remdesivir, steroids, and antibiotics; will observe overnight. Still with complaints of vomiting x1 and diarrhea. We will continue to provide supportive care and hope to discharge in the next day or so. 02/13: Afebrile. Still complains of intermittent diarrhea. At the time of my evaluation she was breathing on 6 L nasal cannula; this is somewhat misleading as patient states that she did not feel short of breath but was placed on 6 L by nursing staff overnight. 02/14: Afebrile, currently breathing on 8 L nasal cannula. There has been some misleading documentation, chart oxygen this patient is requiring. Discussed with RN, will resume remdesivir to complete total of 5 days. Continue to monitor LFTs. Will add steroids, Rocephin, and azithromycin. 02/15: Afebrile. Became much more hypoxic overnight, requiring BiPAP. At the time of my evaluation she is still breathing on BiPAP. Consultation was placed to pulmonology. Had discussion with Dr. Myrick about initiating Tocilizumab 02/16: No acute events overnight. Patient becoming more hypoxic saturating 94% and requiring BiPAP. Patient will be transferred to the ICU at this time. For worsening clinical status. Discussed with pulmonary. Patient's chart, labs, images were reviewed and discussed with RN 02/17: Transferred to ICU yesterday afternoon. Seen and examined at bedside she remains on 100% FiO2 on BiPAP. Respirations do appear somewhat labored. Suspect intubation may be impending. We will closely monitor. Increase lisinopril to 20 today. 02/18: Patient required intubation yesterday afternoon. Saw and examined this morning. She is intubated and sedated. Increase insulin today. Covid protocol ordered. Wean as tolerated. Plan of care discussed with bedside nurse. 02/19: Bedside. She remains intubated and sedated. Continue Covid protocol. Wean oxygen sedation as tolerated. Pulmonary following. Plan of care discussed with bedside RN. 02/20: Patient seen and examined at bedside. She remains intubated and sedated. No major clinical changes. Continue current treatment. Pulmonary following. Plan of care discussed with bedside RN. 02/21: Patient seen and examined at bedside. Remains intubated and sedated date and admission clinical changes. Increase free water flushes today due to hypernatremia. Plan of care discussed with bedside nurse. 02/22: Patient seen and examined at bedside. O2 requirement actually improving, although remains intubated. Possible SBT in the coming days. Hypernatremia improving. Plan of care discussed bedside RN. 02/23: Patient remains in ICU on ventilator with FiO2 100%, PEEP 7. Repeat chest x-ray yesterday showed diffuse bilateral pulmonary opacities with no interval improvement. Will discontinue Rocephin and initiate Zosyn. We will continue IV steroids for a full 10-day course 02/24: Afebrile. On vent with FiO2 40%, PEEP 6. Her Coreg has been held due to persistent bradycardia. No documented history of systolic heart failure or previous echocardiogram. Will need to obtain echocardiogram prior to discharge. Continue IV steroids and antibiotics. 02/25: Afebrile. Remains ventilated with FiO2 45%, PEEP 6. Chest x-ray today showed slight improvement of the pulmonary infiltrates, no pneumothorax. Completed 10-day course of IV Decadron. Will initiate slow Solu-Medrol taper. Continue IV Zosyn. Continue supportive care. 02/26: Afebrile. On vent with FiO2 45%, PEEP 6. Completed 10 days of IV Decadron. Will continue IV Zosyn. Continue supportive care. Critical care time 30 minutes spent reviewing charts, reviewing imaging, reviewing labs, discussion with RN. 02/27: Afebrile. On vent with FiO2 45%, PEEP 6. Completed 10 days of steroids and completed remdesivir. Continue with IV Zosyn. CPAP trial yesterday. Continue NG tube and supportive care. 02/28:. Patient remains on vent with FiO2 40%, PEEP 5. Afebrile. Completed steroids and remdesivir. Some noted hypoglycemia overnight, will de-escalate basal insulin. Continue IV Zosyn. Ventilator management per pulmonology. Continue NG tube and supportive care. 03/01: On vent with FiO2 40%, PEEP 5. Afebrile. Completed steroids and remdesivir. Blood glucose well controlled. Continue empiric antibiotics with Zosyn. Ventilator management per pulmonology. Continue NG tube and supportive care. 03/02: No acute events overnight. Patient hypotensive the morning due to oversedation. Will wean off sedation and keep antihypertensive medications on board. Currently saturating 100% on vent settings of 18/450/40/5. Will attempt spontaneous breathing trial today to see how patient does. 03/03: No acute events overnight. Patient saturating 98% on vent settings of 18 /450/40/5. Will defer spontaneous breathing trials to pulmonary at this time. Patient's chart, labs, images were reviewed and discussed with RN 03/04: No acute events overnight. Patient saturating 9 9% on vent settings of 18/450/30/5. Patient currently is unable to tolerate weaning. Per pulmonary. Patient's chart, labs, images were reviewed and discussed with RN 03/05: No acute events overnight. Patient is saturating 97% on vent settings of 18/450/55/5. Her FiO2 needs to be increased due to abnormal ABG with 7.3 /. Patient's chart, labs, images were reviewed and discussed with RN 03/06: No acute events overnight. Patient saturating 94% on vent settings of 18/450/55/5. Chest x-ray showing increase in pulmonary infiltrates. Wound care is consulted for decubitus ulcer patient's chart, labs, images were reviewed and discussed with RN 03/07: No acute events overnight. Patient saturating 94% on vent settings of 20/450/70/8. Patient now heading into renal failure with her creatinine bumped up from 1.5-4.2. Decreased urine output. Plan for hemodialysis today and temporary catheter placement and nephrology is consulted. 03/08: No acute events overnight. Patient did have a nausea vomiting episode and tube feeds were held. KUB repeat shows NG tube still in the stomach. Will resume tube feeds at trickle and advance to goal today. Will start hemodialysis soon. 03/09: Seen on vent 20/450/60%/8. ABG 7.2 WBC 11.4, Hb 7.4, platelets 188, NA 131, K4.9, BUN 48, CR 51, glucose 199, phosphorus 7.9, mag 2.2, AST 265 ALT 219, albumin 1.1. Chest radiograph appears unchanged from prior. Dialysis x1 today 03/10: Afebrile. Seen on vent, 20/450/60/7 with ABG 7.3 . Tolerated dialysis well on 03/09. LFTs similar. 03/11: Afebrile. Seen on vent, sedated. Still requiring Levophed for BP support. WBC 16.7, Hb 8.1, NA 130, ABG 7.3 on 55% FiO2 PEEP 6. On Zosyn and Zyvox Diflucan. Dialysis today 03/12: Afebrile. Still requiring Levophed for BP support sedated with Versed febrile Precedex. WBC 16.1, Hb 8.5, platelets 185, NA 133. Trach plan tentatively 03/17. O2 saturations 93% on 50% FiO2 PEEP 6. ABG 7. On Zosyn and Zyvox Diflucan. 03/13: Afebrile. Still on Levophed for BP support lightly sedated. 7. on 45% FiO2. Plan for dialysis today. On Zosyn and Zyvox Diflucan. More swollen today. 03/14: Afebrile. Weaning down off Levophed. WBC 14.9 NA 132. O2 saturations 92% on 45% FiO2 PEEP 5. Afebrile. O2 saturations 91% on FiO2 45% PEEP 6. Continued on Zosyn and Zyvox Diflucan. Tentative trach planned 03/17/2021 CC time 31 minutes 03/16/21: Patient seen and examined in ICU. Periorbital as well as upper and lower extremity edema noted. OG feed running at 30cc/hr. Still on vent on pressure control with a rate of 24 with 45% FiO2. Patient has rectal bag. Currently she has 98% O2 sat. Currently sedated with Dexmedetomidine, Propofol, Versed, and Fentanyl. Discussed with RN. Chart reviewed. 03/17/21: Patient was seen and examined in the ICU today. Periorbital edema as well as abdominal and mons pubis edema was noted. Patient still on vent on pressure control with Fi02 of 45% plus 6 PEEP. Patient had rectal bag. Currently sedated on Dexmedetomidine, Propofol, Versed, and Fentanyl. Discussed with RN. Chart reviewed. 03/18/21: Patient seen and examined in ICU. On vent via trach that was placed yesterday. Vent settings are Pressure Control of 40 with FiO2 of 45% and 6 PEEP. Trach clean and dry. Orbital swelling still present. Pupils are sluggish. Patient on TPN running at 30cc/hr. Kern to bedside and rectal bag in place. Current O2 sat at 94%. Sedated on Dexmedetomidine, Propofol, Versed, and Fentanyl. Discussed with RN. Chart reviewed. 03/19/21: Patient was seen and examined in the ICU today. Currently on vent via trach on pressure control of 42, rate of 24, FiO2 of 45%, and 6 PEEP. O2 sat is at 97% while patient is being examined. Trach is clean and dry. PICC line is in place on right arm. Periorbital swelling has decreased slightly since examined yesterday. Patient is sedated on Dexmedetomidine, Propofol, Versed, and Fentanyl. Discussed with RN. Chart reviewed. 03/20/21: Patient seen and examined in the ICU. Periorbital edema is slightly decreased since yesterday. O2 sat while being examined was 93%. NG tube in place and running at 30cc/hr. Patient on vent via trach on pressure control of 40 with FiO2 of 45 and rate of 24. Sedated on Dexmedetomidine, Propofol, Versed, and Fentanyl. PICC line in place. Kern to bedside. Rectal bag present. Discussed with RN. Chart reviewed. 03/21/21: Patient was seen and examined in the ICU today. She was semi-sedated.. She was on Dexmedetomidine and Fentanyl. We are holding the Propofol. Her eyes were periodically open but she was not making meaningful eye contact or tracking. On vent via trach with pressure control of 40 and FiO2 at 45. Rate was 24. PEEP was 5. Trach was clean and dry. While being examined, her O2 sat was 94%. Rectal bag and Kern to bedside in place. NG tube in place and feeding at 30cc/hr. IV fluids still running. Levophed has been stopped. Discussed with RN. Chart reviewed. 03/22/21: Patient was seen and examined in the ICU. She was semi-sedated on Propofol and Dexmedetomidine. Her eyes were open but she did not make meaningful eye contact. Her blood pressure was elevated (198/102) while being examined and she had just been given hydralazine to lower it. There are plans to place a PEG tube tomorrow. Currently on vent via trach on pressure control of 40 with FiO2 of 45%, 5 PEEP, and a rate of 24. Current O2 sat is 98%. She is feeding through an NG tube at 30cc/hr. Rectal bag and Kern to bedside present. SCDs on patient for DVT prophylaxis. She did not do her daily dialysis today but the plan is to start back on that tomorrow. Discussed with RN. Chart reviewed. 03/23/2021: Patient remains in ICU on ventilator. FiO2 40%, PEEP 5. Trach cultures positive for [place] albicans and acinebacter ursungi. We will cont inue treatment with IV antibiotics and micafungin, per ID. HD per nephrology. Plans for PEG tube placement today. 30 minutes critical care time was spent reviewing charts, reviewing labs, reviewing imaging, discussion with RN. 03/24/2021: Afebrile. On vent with FiO2 45%, PEEP 5. Had attempted PEG placement per GI yesterday, but unable to locate safe path for PEG; will consider surgical opinion. Once PEG is in place she should be stable for LTAC transfer when accepted. Continue antibiotics, per ID. 30 minutes critical care time was spent reviewing charts, reviewing labs, reviewing imaging, discussion with RN. 03/25/2021: Febrile overnight with T-max 101.5 F. On vent with FiO2 45%, PEEP 5. Surgery has been consulted with tentative plans for laparoscopic versus open gastrostomy placement tomorrow. Trach cultures positive for [place] albicans and now acinebacter ursungi; will continue antibiotic management, per ID. Hemodialysis, per nephrology. Patient needing LTAC placement, but currently without benefits. cushion worker following for discharge planning. Critical care time 30 minutes spent reviewing charts, reviewing labs, reviewing imaging, discussion with RN. 03/26/2021: Febrile today with T-max 100.5 F. Awake on vent with FiO2 45%, PEEP 5. When I ask if she remembers any she nods. G-tube placement scheduled for tomorrow, per general surgery. Chest x-ray today showed slight interval increase in diffuse infiltrate. Continue antibiotic management, per ID. Hemodialysis per nephrology. Reportedly did not tolerate CPAP trial this morning. cushion worker following for LTAC placement. Critical care time 30 minutes spent reviewing charts, reviewing labs, reviewing imaging, discussion with RN. 03/27/2021: On vent with FiO2 45%, PEEP 5. Afebrile today. Continue treatment of acute renal failure requiring HD, per nephrology. Monitor kidney function for recovery. G-tube placement scheduled for today, per general surgery. Likely LTAC placement soon, but this is been a difficult as she is self-pay without benefits; social and human services assistant following. Critical care time 30 minutes spent reviewing charts, reviewing labs, reviewing imaging, discussion with RN. 03/28/2021: Afebrile. On vent with FiO2 40%, PEEP 5. Had laparoscopic gastrostomy tube placed yesterday, per general surgery. Continue treatment of acute renal failure requiring HD, per nephrology. Continue IV antibiotics, per ID. Likely LTAC placement soon, but this is been a difficult as she is self-pay without benefits; social and human services assistant following. Critical care time 30 minutes spent reviewing charts, reviewing labs, reviewing imaging, discussion with RN. 03/29/2021: Afebrile. On vent with FiO2 45%, PEEP 5. S/P laparoscopic gastrostomy tube; tube feeds running. HD, per nephrology. Continue meropenem, per ID. Anticipate LTAC placement soon now that PEG has being placed; social and human services assistant helping in these regards. Critical care time 30 minutes spent reviewing charts, reviewing labs, reviewing imaging, discussion with RN. 03/30 No major events or clinical changes overnight. Patient evaluated at bedside this morning on trach and G-tube. Tolerating these well. Has been working on insurance for patient for placement as she will need long-term care. Guarded prognosis. Plan of care discussed with bedside nurse. 03/31 No major clinical changes. Remains trached. Sedated. Continue current plan. 04/01 No changes. Patient resting in bed when evaluated sedated. is supposed to be working on insurance for placement for the patient. Otherwise no changes. 04/02 Patient febrile overnight, daptomycin added this morning per infectious disease. Otherwise no major clinical changes. Awaiting insurance. Infectious disease, pulmonary and renal following. Plan of care discussed with bedside RN. 04/03 Patient undergoing dialysis today. Evaluated at bedside this morning. otherwise continue current plan. supposed working on insurance. 04/04 No major overnight changes. Continue current plan. 04/05 Patient notably more movement this morning eyes open resting in bed otherwise no major changes. Continue current plan. Insurance pending. 04/06 Patient notably more movement this morning eyes open resting in bed current plan. Insurance pending. Continue daptomycin, renal dosing April 02 F/U Blood culture UA urine culture C. diff PCR negative 32 min cc time Vitals Vitals Vital Signs Date Time Temp Pulse Resp B/P (MAP) Pulse Ox O2 Delivery O2 Flow Rate FiO2 04/06/21 07:00 92 18 165/83 (110) 100 Ventilator 04/06/21 04:00 97.8 97.8 Physical Exam Physical Exam GENERAL: Intubated HEENT: Normocephalic, atraumatic. Anicteric. Slight bilateral periorbital edema. Neck right IJ HDC clean Trach + LUNGS: Rhonchi. HEART: S1, S2. No murmurs. ABDOMEN: Obese, soft. Bowel sounds present. Nontender, nondistended. Abdominal and pubis mons edema noted. PEG tube in place GENITOURINARY: Kern and fecal tube in place. EXTREMITIES: Edema present no cyanosis. CENTRAL NERVOUS SYSTEM: Intubated. PSYCHIATRIC: Unable to assess. Derm has pressure wounds wound pictures noted in chart. Generalized rash, PICC line February 14, right IJ HDC clean March 07 General: No acute distress, Other (sedated) Heart: Regular rate, Normal S1, Normal S2 Lungs: Clear Abdomen: Soft, Other (G-tube in place) Extremities: Other (ANASARCA) Skin: No rashes, No significant lesion Labs LABS PROCEDURE NOTE PROCEDURE Procedure EGD (attempted PEG) Indication: OP dysphagia Meds: ventilator control Findings: E--normal G--normal D--normal bulb. --Unable to locate safe port for PEG placement. Did not attempt. Herman. well. IMP: OP dysphagia; no safe path for PEG placement. REC: continue Dobbhoff feedings. Consider surgical opinion re: gastrostomy. Sorry. GERALD WU MD Mar 23, 2021 15:04 OPERATIVE NOTE. OPERATIVE NOTE Date: Date: Mar 27, 2021 Pre-Op Diagnosis: Respiratory failure, need for enteral access Post-Op Diagnosis: same Procedure Performed: laparoscopic gastrostomy tube placement (22 F) Surgeon: Maico Mills Anesthesia Type: GETA plus local PATIENT: ARIADNA BANKS ACCOUNT: [id number] : 1975 LOCATION: [facility] ICU AGE: 46 SEX: F EXAM STATUS: ADM IN ORD. PHYSICIAN: MONTEZ OROPEZA MD REASON: Vent PROCEDURE: PORTABLE CHEST 1V XR CHEST 1V History: Reason: Vent / Spl. Instructions: / History: Comparison: March 26, 2021 Findings: Moderate diffuse pulmonary opacities, slightly decreased compared to prior. No pleural effusion. No pneumothorax. Stable right IJ central line and right PICC as well as tracheostomy tube. Unchanged heart size. Impression: 1. Moderate diffuse pulmonary opacities, slightly decreased compared to prior. Electronically signed by: Braeden Echevarria DO (04/01/2021 10:36 AM) [id number] DICTATED and SIGNED BY: BRAEDEN ECHEVARRIA DO DATE: 04/01/21 [id number] Laboratory Tests Test 04/05/21 12:01 04/05/21 12:10 04/05/21 17:48 04/05/21 18:25 Glucose (Fingerstick) 268 mg/dL (70-99) 145 mg/dL (70-99) Potassium Level 4.1 mmol/L (3.5-5.1) 4.2 mmol/L (3.5-5.1) Test 04/06/21 00:00 04/06/21 00:01 04/06/21 06:24 04/06/21 06:30 Glucose (Fingerstick) 276 mg/dL (70-99) 182 mg/dL (70-99) Potassium Level 3.6 mmol/L (3.5-5.1) 3.5 mmol/L (3.5-5.1) Sodium Level 142 mmol/L (136-145) Chloride Level 103 mmol/L (98-107) Carbon Dioxide Level 26 mmol/L (21-32) Anion Gap 13 (6-14) Blood Urea Nitrogen 45 mg/dL (7-20) Creatinine 3.9 mg/dL (0.6-1.0) Estimated GFR (Cockcroft-Gault) 12.5 Glucose Level 182 mg/dL (70-99) Calcium Level 9.4 mg/dL (8.5-10.1) Magnesium Level 2.2 mg/dL (1.8-2.4) Assessment and Plan Assessmemt and Plan Problems Medical Problems: (1) Ketoacidosis Status: Acute Comment Review of Relevant I have reviewed the following items mazin (where applicable) has been applied. Labs Laboratory Tests Test 04/04/21 13:03 04/04/21 23:22 04/04/21 23:30 04/05/21 05:54 Glucose (Fingerstick) 193 mg/dL (70-99) 226 mg/dL (70-99) 116 mg/dL (70-99) Potassium Level 3.9 mmol/L (3.5-5.1) Test 04/05/21 06:00 04/05/21 08:00 04/05/21 12:01 04/05/21 12:10 Sodium Level 139 mmol/L (136-145) Potassium Level 3.6 mmol/L (3.5-5.1) 4.1 mmol/L (3.5-5.1) Chloride Level 101 mmol/L (98-107) Carbon Dioxide Level 26 mmol/L (21-32) Anion Gap 12 (6-14) Blood Urea Nitrogen 34 mg/dL (7-20) Creatinine 3.6 mg/dL (0.6-1.0) Estimated GFR (Cockcroft-Gault) 13.7 Glucose Level 128 mg/dL (70-99) Calcium Level 9.5 mg/dL (8.5-10.1) Magnesium Level 2.1 mg/dL (1.8-2.4) O2 Saturation 98 % (92-99) Arterial Blood pH 7.43 (7.35-7.45) Arterial Blood pCO2 at Patient Temp 33 mmHg (35-46) Arterial Blood pO2 at Patient Temp 142 mmHg (75-108) Arterial Blood HCO3 21 mmol/L (21-28) Arterial Blood Base Excess -3 mmol/L (-3-3) FiO2 40% vent Glucose (Fingerstick) 268 mg/dL (70-99) Test 04/05/21 17:48 04/05/21 18:25 04/06/21 00:00 04/06/21 00:01 Glucose (Fingerstick) 145 mg/dL (70-99) 276 mg/dL (70-99) Potassium Level 4.2 mmol/L (3.5-5.1) 3.6 mmol/L (3.5-5.1) Test 04/06/21 06:24 04/06/21 06:30 Glucose (Fingerstick) 182 mg/dL (70-99) Sodium Level 142 mmol/L (136-145) Potassium Level 3.5 mmol/L (3.5-5.1) Chloride Level 103 mmol/L (98-107) Carbon Dioxide Level 26 mmol/L (21-32) Anion Gap 13 (6-14) Blood Urea Nitrogen 45 mg/dL (7-20) Creatinine 3.9 mg/dL (0.6-1.0) Estimated GFR (Cockcroft-Gault) 12.5 Glucose Level 182 mg/dL (70-99) Calcium Level 9.4 mg/dL (8.5-10.1) Magnesium Level 2.2 mg/dL (1.8-2.4) Laboratory Tests Test 04/05/21 12:01 04/05/21 12:10 04/05/21 17:48 04/05/21 18:25 Glucose (Fingerstick) 268 mg/dL (70-99) 145 mg/dL (70-99) Potassium Level 4.1 mmol/L (3.5-5.1) 4.2 mmol/L (3.5-5.1) Test 04/06/21 00:00 04/06/21 00:01 04/06/21 06:24 04/06/21 06:30 Glucose (Fingerstick) 276 mg/dL (70-99) 182 mg/dL (70-99) Potassium Level 3.6 mmol/L (3.5-5.1) 3.5 mmol/L (3.5-5.1) Sodium Level 142 mmol/L (136-145) Chloride Level 103 mmol/L (98-107) Carbon Dioxide Level 26 mmol/L (21-32) Anion Gap 13 (6-14) Blood Urea Nitrogen 45 mg/dL (7-20) Creatinine 3.9 mg/dL (0.6-1.0) Estimated GFR (Cockcroft-Gault) 12.5 Glucose Level 182 mg/dL (70-99) Calcium Level 9.4 mg/dL (8.5-10.1) Magnesium Level 2.2 mg/dL (1.8-2.4) Microbiology 04/02/21 Urine Culture - Final, Complete 04/02/21 Blood Culture - Preliminary, Resulted NO GROWTH AFTER 3 DAYS 03/16/21 Gram Stain Evaluation - Final, Complete 03/16/21 Respiratory Culture - Final, Complete 03/16/21 Antimicrobic Susceptibility - Final, Complete Medications Current Medications Ondansetron HCl (Zofran Odt) 4 mg 1X ONCE PO Last administered on 02/06/21at 23:57; Start 02/06/21 at 23:30; Stop 02/06/21 at 23:31; Status DC Haloperidol Lactate (Haldol Inj) 2.5 mg 1X ONCE IM ; Start 02/07/21 at 02:30; Stop 02/07/21 at 03:56; Status DC Sodium Chloride 1,000 ml @ 1,000 mls/hr 1X ONCE IV Last administered on 02/07/21at 03:41; Start 02/07/21 at 02:30; Stop 02/07/21 at 03:29; Status DC Hydromorphone HCl (Dilaudid) 1 mg 1X ONCE IVP Last administered on 02/07/21at 04:13; Start 02/07/21 at 04:30; Stop 02/07/21 at 04:31; Status DC Sodium Chloride 1,000 ml @ 1,000 mls/hr 1X ONCE IV Last administered on 02/07/21at 10:39; Start 02/07/21 at 06:30; Stop 02/07/21 at 07:29; Status DC Insulin Human Regular 100 unit/ Sodium Chloride 101 ml @ 0 mls/hr CONT PRN PRN IV PER PROTOCOL; Start 02/07/21 at 06:00; Stop 02/07/21 at 16:54; Status DC Potassium Chloride/Water 100 ml @ 100 mls/hr PRN Q1HR PRN IV SEE COMMENTS; Start 02/07/21 at 06:00; Stop 02/07/21 at 16:54; Status DC Potassium Chloride/Water 100 ml @ 100 mls/hr PRN Q1HR PRN IV SEE COMMENTS; Start 02/07/21 at 06:00; Stop 02/07/21 at 16:54; Status DC Potassium Chloride/Water 100 ml @ 100 mls/hr PRN Q1HR PRN IV SEE COMMENTS; Start 02/07/21 at 06:00; Stop 02/07/21 at 16:54; Status DC Insulin Human Regular 100 ml @ 10 mls/hr 1X ONCE IV Last administered on 02/07/21at 09:31; Start 02/07/21 at 06:30; Stop 02/07/21 at 16:54; Status DC Sennosides (Senna) 17.2 mg PRN BID PRN PO CONSTIPATION Last administered on 02/22/21at 08:29; Start 02/07/21 at 08:45 Docusate Sodium (Colace) 100 mg PRN DAILY PRN PO HARD STOOLS; Start 02/07/21 at 08:45; Stop 02/23/21 at 10:47; Status DC Ondansetron HCl (Zofran) 4 mg PRN Q6HRS PRN IVP NAUSEA/VOMITING 1ST CHOICE Last administered on 02/16/21at 15:58; Start 02/07/21 at 08:45 Dextrose (Dextrose 50%-Water Syringe) 12.5 gm PRN Q15MIN PRN IV SEE COMMENTS; Start 02/07/21 at 08:45; Stop 02/08/21 at 16:56; Status DC Sodium Chloride 1,000 ml @ 200 mls/hr Q5H IV Last administered on 02/08/21at 04:05; Start 02/07/21 at 08:45; Stop 02/08/21 at 08:44; Status DC Acetaminophen (Tylenol) 650 mg PRN Q4HRS PRN PO FEVER > 101 Last administered on 02/13/21at 21:35; Start 02/07/21 at 08:45; Stop 02/17/21 at 10:45; Status DC Prochlorperazine Edisylate (Compazine) 10 mg PRN Q6HRS PRN IV NAUSEA/VOMITING 2ND CHOICE Last administered on 02/12/21at 10:35; Start 02/07/21 at 08:45 Insulin Glargine (Lantus Syringe) 5 unit BID SQ Last administered on 02/08/21at 10:24; Start 02/07/21 at 17:00; Stop 02/08/21 at 20:11; Status DC Insulin Human Lispro (HumaLOG) 0-7 UNITS Q4HRS SQ Last administered on 02/08/21at 00:00; Start 02/07/21 at 20:00; Stop 02/08/21 at 00:50; Status DC Dextrose (Dextrose 50%-Water Syringe) 12.5 gm PRN Q15MIN PRN IV SEE COMMENTS; Start 02/07/21 at 17:00; Stop 02/17/21 at 10:45; Status DC Ondansetron HCl (Zofran) 4 mg 1X ONCE IVP Last administered on 02/07/21at 20:06; Start 02/07/21 at 20:00; Stop 02/07/21 at 20:07; Status DC Insulin Human Lispro (HumaLOG) 0-9 UNITS Q4HRS SQ Last administered on 02/13/21at 17:36; Start 02/08/21 at 04:00; Stop 02/13/21 at 21:44; Status DC Metoclopramide HCl (Reglan Vial) 10 mg PRN Q6HRS PRN IVP NAUSEA/VOMITING 3RD CHOICE Last administered on 02/12/21at 15:51; Start 02/08/21 at 00:45 Labetalol HCl (Normodyne Iv Push) 10 mg PRN Q2HR PRN IVP HYPERTENSION, 1st choice Last administered on 03/26/21at 21:14; Start 02/08/21 at 00:45 Acetaminophen (Tylenol Supp) 650 mg PRN Q6HRS PRN CA FEVER > 101; Start 02/08/21 at 01:45; Stop 02/17/21 at 10:45; Status DC Lorazepam (Ativan Inj) 0.5 mg PRN Q6HRS PRN IVP ANXIETY / AGITATION Last administered on 04/01/21at 15:32; Start 02/08/21 at 10:00 Enalaprilat (Vasotec Inj) 0.625 mg Q6HRS IVP Last administered on 02/09/21at 13:42; Start 02/08/21 at 16:15; Stop 02/09/21 at 16:01; Status DC Insulin Glargine (Lantus Syringe) 15 unit BID SQ Last administered on 02/17/21at 20:29; Start 02/08/21 at 21:00; Stop 02/18/21 at 08:09; Status DC Insulin Human Lispro (HumaLOG) 3 units TIDAC SQ Last administered on 02/16/21at 09:10; Start 02/09/21 at 07:30; Stop 02/16/21 at 23:51; Status DC Carvedilol (Coreg) 6.25 mg BIDWMEALS PO Last administered on 02/23/21at 08:06; Start 02/08/21 at 20:30; Stop 02/23/21 at 15:50; Status DC Atorvastatin Calcium (Lipitor) 40 mg HS PO Last administered on 04/05/21at 21:05; Start 02/08/21 at 21:00 Lisinopril (Prinivil) 5 mg DAILY PO Last administered on 02/09/21at 09:48; Start 02/09/21 at 09:00; Stop 02/09/21 at 13:04; Status DC Sodium Chloride 1,000 ml @ 100 mls/hr Q10H IV Last administered on 02/16/21at 12:15; Start 02/09/21 at 07:00; Stop 02/17/21 at 15:37; Status DC Enoxaparin Sodium (Lovenox Per Pharmacy Prophylaxis Dosing) 1 each PRN DAILY PRN MC SEE COMMENTS; Start 02/09/21 at 06:45; Stop 03/12/21 at 15:38; Status DC Enoxaparin Sodium (Lovenox 40mg Syringe) 40 mg BID SQ Last administered on 03/08/21at 08:26; Start 02/09/21 at 09:00; Stop 03/08/21 at 13:56; Status DC Lisinopril (Prinivil) 10 mg DAILY PO Last administered on 02/16/21at 09:06; Start 02/10/21 at 09:00; Stop 02/17/21 at 08:29; Status DC Hydromorphone HCl (Dilaudid) 2 mg PRN Q6HRS PRN IVP PAIN Last administered on 02/15/21at 22:00; Start 02/09/21 at 17:15; Stop 02/21/21 at 05:27; Status DC Benzonatate (Tessalon Perle) 100 mg [id number] PO Last administered on 02/16/21at 22:07; Start 02/10/21 at 23:30; Stop 02/17/21 at 10:45; Status DC Guaifenesin (Robitussin Dm) 10 ml PRN Q6HRS PRN PO COUGH Last administered on 02/16/21at 09:06; Start 02/10/21 at 23:30 Remdesivir 200 mg/ Sodium Chloride 210 ml @ 210 mls/hr 1X ONCE IV Last administered on 02/11/21at 14:33; Start 02/11/21 at 13:00; Stop 02/12/21 at 11:55; Status DC Remdesivir 100 mg/ Sodium Chloride 230 ml @ 460 mls/hr Q24H IV ; Start 02/12/21 at 13:00; Stop 02/12/21 at 11:55; Status DC Hydralazine HCl (Apresoline Inj) 10 mg PRN Q4HRS PRN IVP ELEVATED BP, 2nd choice Last administered on 04/06/21at 02:45; Start 02/11/21 at 12:15 Ceftriaxone Sodium (Rocephin) 1 gm Q24H IVP Last administered on 02/11/21at 12:55; Start 02/11/21 at 12:30; Stop 02/12/21 at 11:55; Status DC Dexamethasone Sodium Phosphate (Decadron) 6 mg DAILY IVP Last administered on 02/12/21at 09:34; Start 02/11/21 at 13:00; Stop 02/12/21 at 11:55; Status DC Potassium Chloride (Klor-Con) 40 meq 1X ONCE PO Last administered on 02/13/21at 11:11; Start 02/13/21 at 10:30; Stop 02/13/21 at 10:47; Status DC Potassium Chloride (Klor-Con) 40 meq 1X ONCE PO Last administered on 02/13/21at 13:21; Start 02/13/21 at 12:00; Stop 02/13/21 at 12:01; Status DC Insulin Human Lispro (HumaLOG) 0-9 UNITS QIDACHS SQ Last administered on 02/15/21at 22:01; Start 02/14/21 at 07:30; Stop 02/16/21 at 23:51; Status DC Remdesivir 100 mg/ Sodium Chloride 230 ml @ 460 mls/hr Q24H IV Last administered on 02/18/21at 11:52; Start 02/15/21 at 12:00; Stop 02/18/21 at 12:29; Status DC Dexamethasone Sodium Phosphate (Decadron) 6 mg DAILY IVP Last administered on 02/24/21at 08:12; Start 02/15/21 at 09:00; Stop 02/25/21 at 06:41; Status DC Dexamethasone Sodium Phosphate (Decadron) 6 mg 1X ONCE IVP ; Start 02/14/21 at 12:45; Stop 02/14/21 at 12:46; Status DC Ceftriaxone Sodium (Rocephin) 1 gm Q24H IVP Last administered on 02/22/21at 12:42; Start 02/14/21 at 13:00; Stop 02/23/21 at 07:34; Status DC Azithromycin 250 mg/Sodium Chloride 250 ml @ 250 mls/hr Q24H IV Last administered on 02/18/21at 11:51; Start 02/14/21 at 13:30; Stop 02/18/21 at 14:29; Status DC Dexamethasone Sodium Phosphate (Decadron) 6 mg 1X ONCE IVP Last administered on 02/14/21at 18:17; Start 02/14/21 at 17:15; Stop 02/14/21 at 17:16; Status DC Alteplase, Recombinant (Cathflo For Central Catheter Clearance) 1 mg 1X ONCE INT CAT Last administered on 02/16/21at 08:41; Start 02/16/21 at 08:00; Stop 02/16/21 at 08:01; Status DC Dexmedetomidine HCl 400 mcg/ Sodium Chloride 100 ml @ 0 mls/hr CONT PRN IV PER PROTOCOL Last administered on 02/17/21at 20:27; Start 02/16/21 at 12:00; Stop 02/27/21 at 09:37; Status DC Sodium Chloride 500 ml @ 500 mls/hr 1X PRN PRN IV SEE COMMENTS; Start 02/16/21 at 12:00 Atropine Sulfate (ATROPINE 0.5mg SYRINGE) 0.5 mg PRN Q5MIN PRN IV SEE COMMENTS; Start 02/16/21 at 12:00 Lactobacillus Rhamnosus (Culturelle) 1 cap BID PO Last administered on 02/16/21at 22:02; Start 02/16/21 at 21:00; Stop 02/17/21 at 10:45; Status DC Famotidine (Pepcid Vial) 20 mg BID IVP Last administered on 03/09/21at 09:27; Start 02/16/21 at 21:00; Stop 03/09/21 at 10:41; Status DC Furosemide (Lasix) 20 mg 1X ONCE IVP Last administered on 02/16/21at 18:38; Start 02/16/21 at 18:30; Stop 02/16/21 at 18:34; Status DC Furosemide (Lasix) 20 mg 1X ONCE IVP Last administered on 02/16/21at 22:18; Start 02/16/21 at 22:15; Stop 02/16/21 at 22:16; Status DC Insulin Human Lispro (HumaLOG) 3 units Q6HRS SQ Last administered on 02/18/21at 05:40; Start 02/17/21 at 00:00; Stop 02/18/21 at 08:09; Status DC Insulin Human Lispro (HumaLOG) 0-9 UNITS Q6HRS SQ Last administered on 04/06/21at 06:26; Start 02/17/21 at 00:00 Lisinopril (Prinivil) 20 mg DAILY PO Last administered on 02/27/21at 09:10; Start 02/17/21 at 09:00; Stop 03/09/21 at 10:43; Status DC Fentanyl Citrate 30 ml @ 0 mls/hr CONT PRN IV SEE PROTOCOL Last administered on 03/15/21at 16:08; Start 02/17/21 at 10:00; Stop 03/15/21 at 23:00; Status DC Propofol 100 ml @ 0 mls/hr CONT PRN IV PER PROTOCOL Last administered on 04/06/21at 04:16; Start 02/17/21 at 10:00 Glycerin/ Hypromellose/ Polyethylene (Artificial Tears) 1 drop PRN Q1HR PRN OU DRY EYE Last administered on 04/05/21at 08:02; Start 02/17/21 at 10:00 Midazolam HCl 100 ml @ 0 mls/hr CONT PRN IV SEE PROTOCOL Last administered on 03/20/21at 17:18; Start 02/17/21 at 10:00 Succinylcholine Chloride (Anectine) 200 mg STK-MED ONCE .ROUTE ; Start 02/17/21 at 09:58; Stop 02/17/21 at 09:58; Status DC Acetaminophen (Tylenol) 650 mg PRN Q6HRS PRN PEG MILD PAIN / TEMP > 100.3'F Last administered on 04/02/21at 18:06; Start 02/17/21 at 10:45 Insulin Glargine (Lantus Syringe) 20 unit BID SQ Last administered on 02/18/21at 20:54; Start 02/18/21 at 09:00; Stop 02/19/21 at 07:47; Status DC Insulin Human Lispro (HumaLOG) 5 units Q6HRS SQ Last administered on 02/19/21at 06:23; Start 02/18/21 at 12:00; Stop 02/19/21 at 07:47; Status DC Insulin Glargine (Lantus Syringe) 25 unit BID SQ Last administered on 02/27/21at 20:42; Start 02/19/21 at 09:00; Stop 02/28/21 at 09:34; Status DC Insulin Human Lispro (HumaLOG) 8 units Q6HRS SQ Last administered on 02/19/21at 11:33; Start 02/19/21 at 12:00; Stop 02/19/21 at 12:32; Status DC Insulin Human Lispro (HumaLOG) 10 units Q6HRS SQ Last administered on 02/20/21at 06:38; Start 02/19/21 at 18:00; Stop 02/20/21 at 08:14; Status DC Insulin Human Lispro (HumaLOG) 12 units Q6HRS SQ Last administered on 02/27/21at 05:41; Start 02/20/21 at 12:00; Stop 02/28/21 at 15:38; Status DC Piperacillin Sod/ Tazobactam Sod (Zosyn Per Pharmacy) 1 each PRN DAILY PRN MC SEE COMMENTS; Start 02/23/21 at 07:45; Stop 03/17/21 at 10:04; Status DC Piperacillin Sod/ Tazobactam Sod 4.5 gm/Sodium Chloride 100 ml @ 200 mls/hr Q6HRS IV Last administered on 03/07/21at 06:12; Start 02/23/21 at 08:00; Stop 03/07/21 at 08:18; Status DC Docusate Sodium (Colace Solution) 100 mg BID PO Last administered on 04/04/21at 09:29; Start 02/23/21 at 12:00 Amlodipine Besylate (Norvasc) 5 mg DAILY NG Last administered on 02/27/21at 09:10; Start 02/24/21 at 09:00; Stop 03/09/21 at 10:43; Status DC Methylprednisolone Sodium Succinate (SOLU-Medrol 125MG VIAL) 80 mg Q8HRS IV Last administered on 02/26/21at 05:52; Start 02/25/21 at 09:00; Stop 02/26/21 at 07:09; Status DC Succinylcholine Chloride (Anectine) 200 mg STK-MED ONCE .ROUTE ; Start 02/17/21 at 10:00; Stop 02/25/21 at 08:40; Status DC Dexamethasone Sodium Phosphate (Decadron) 4 mg 1X ONCE IVP ; Start 02/26/21 at 10:00; Stop 02/26/21 at 07:15; Status DC Dexamethasone Sodium Phosphate (Decadron) 2 mg 1X ONCE IVP ; Start 02/27/21 at 09:00; Stop 02/26/21 at 07:15; Status DC Dexmedetomidine HCl 400 mcg/ Sodium Chloride 100 ml @ 0 mls/hr CONT PRN IV PER PROTOCOL Last administered on 04/06/21at 06:24; Start 02/27/21 at 09:45 Sodium Chloride 500 ml @ 500 mls/hr 1X PRN PRN IV SEE COMMENTS; Start 02/27/21 at 09:45; Status Cancel Alteplase, Recombinant (Cathflo) 2 mg 1X ONCE INT CAT Last administered on 02/27/21at 11:20; Start 02/27/21 at 11:00; Stop 02/27/21 at 11:01; Status DC Alteplase, Recombinant (Cathflo For Central Catheter Clearance) 1 mg 1X ONCE INT CAT Last administered on 02/27/21at 15:18; Start 02/27/21 at 14:30; Stop 02/27/21 at 14:36; Status DC Alteplase, Recombinant (Cathflo For Central Catheter Clearance) 1 mg 1X ONCE INT CAT Last administered on 02/27/21at 15:19; Start 02/27/21 at 14:30; Stop 02/27/21 at 14:36; Status DC Dextrose (Dextrose 50%-Water Syringe) 25 gm STK-MED ONCE IV ; Start 02/27/21 at 23:48; Stop 02/27/21 at 23:48; Status DC Dextrose (Dextrose 50%-Water Syringe) 25 gm 1X ONCE IV Last administered on 02/27/21at 23:55; Start 02/28/21 at 00:00; Stop 02/28/21 at 00:01; Status DC Insulin Glargine (Lantus Syringe) 20 unit BID SQ Last administered on 02/28/21at 21:06; Start 02/28/21 at 10:00; Stop 03/01/21 at 14:18; Status DC Dextrose (Dextrose 50%-Water Syringe) 12.5 gm PRN Q15MIN PRN IV SEE COMMENTS Last administered on 03/01/21at 12:55; Start 03/01/21 at 13:00 Insulin Glargine (Lantus Syringe) 15 unit QHS SQ Last administered on 03/05/21at 21:26; Start 03/01/21 at 21:00; Stop 03/06/21 at 07:17; Status DC Nystatin (Nystop) 1 reji BID TP Last administered on 04/05/21at 21:05; Start 03/02/21 at 21:00 Vancomycin HCl 1 gm/Sodium Chloride 250 ml @ 250 mls/hr Q12H IV ; Start 03/04/21 at 20:00; Status UNV Vancomycin HCl 2 gm/Sodium Chloride 500 ml @ 250 mls/hr 1X ONCE IV Last administered on 03/04/21at 19:26; Start 03/04/21 at 19:00; Stop 03/04/21 at 20:59; Status DC Vancomycin HCl (Vanco Per Pharmacy) 1 each PRN DAILY PRN MC SEE COMMENTS Last administered on 03/04/21at 19:47; Start 03/04/21 at 18:30; Stop 03/05/21 at 08:59; Status DC Vancomycin HCl 1.5 gm/Sodium Chloride 500 ml @ 250 mls/hr Q12H IV ; Start 03/05/21 at 07:30; Stop 03/05/21 at 08:58; Status DC Vancomycin HCl (Vancomycin Trough Level) 1 each 1X ONCE MC ; Start 03/06/21 at 07:00; Stop 03/06/21 at 07:01; Status Cancel Linezolid (Zyvox) 600 mg BID PO Last administered on 03/11/21at 20:33; Start 03/05/21 at 09:00; Stop 03/12/21 at 07:00; Status DC Insulin Glargine (Lantus Syringe) 15 unit BID SQ ; Start 03/06/21 at 09:00; Stop 03/06/21 at 07:25; Status DC Insulin Glargine (Lantus Syringe) 5 unit BID SQ Last administered on 04/05/21at 21:13; Start 03/06/21 at 09:00 Norepinephrine Bitartrate 8 mg/ Dextrose 258 ml @ 21.711 mls/ hr CONT PRN IV PER PROTOCOL Last administered on 03/19/21at 18:45; Start 03/06/21 at 13:45 Vecuronium [place] (Norcuron Bolus) 6 mg PRN Q2HRS PRN IV VENTILATOR COMPLIANCE Last administered on 03/16/21at 10:16; Start 03/06/21 at 14:30 Sodium Chloride 1,000 ml @ 1,000 mls/hr 1X ONCE IV Last administered on 03/06/21at 16:00; Start 03/06/21 at 16:00; Stop 03/06/21 at 19:16; Status DC Sodium Chloride 1,000 ml @ 1,000 mls/hr 1X ONCE IV Last administered on 03/06/21at 20:37; Start 03/06/21 at 19:15; Stop 03/06/21 at 20:14; Status DC Piperacillin Sod/ Tazobactam Sod 2.25 gm/Sodium Chloride 50 ml @ 100 mls/hr Q8HRS IV Last administered on 03/17/21at 05:58; Start 03/07/21 at 14:00; Stop 03/17/21 at 08:03; Status DC Fluconazole/ Sodium Chloride 100 ml @ 100 mls/hr Q24H IV Last administered on 03/16/21at 08:29; Start 03/07/21 at 09:00; Stop 03/17/21 at 08:03; Status DC Lidocaine HCl (Buffered Lidocaine 1%) 6 ml 1X ONCE INJ Last administered on 03/07/21at 14:10; Start 03/07/21 at 13:15; Stop 03/07/21 at 13:16; Status DC Lidocaine HCl (Buffered Lidocaine 1%) 3 ml STK-MED ONCE .ROUTE ; Start 03/07/21 at 13:25; Stop 03/07/21 at 13:25; Status DC Info (PHARMACY MONITORING -- do not chart) 1 each PRN DAILY PRN MC SEE COMMENTS; Start 03/07/21 at 20:45; Stop 03/10/21 at 10:23; Status DC Enoxaparin Sodium (Lovenox 30mg Syringe) 30 mg Q24H SQ Last administered on 03/12/21at 09:04; Start 03/08/21 at 09:00; Stop 03/12/21 at 15:38; Status DC Famotidine (Pepcid Vial) 20 mg DAILY IVP Last administered on 04/05/21at 08:01; Start 03/10/21 at 09:00 Sodium Chloride 1,000 ml @ 1,000 mls/hr Q1H PRN IV hypotension; Start 03/09/21 at 18:15; Stop 03/10/21 at 00:14; Status DC Albumin Human 200 ml @ 200 mls/hr 1X PRN PRN IV Hypotension Last administered on 03/09/21at 19:40; Start 03/09/21 at 18:15; Stop 03/10/21 at 00:14; Status DC Sodium Chloride 1,000 ml @ 400 mls/hr Q2H30M PRN IV PATENCY; Start 03/09/21 at 18:15; Stop 03/10/21 at 06:14; Status DC Info (PHARMACY MONITORING -- do not chart) 1 each PRN DAILY PRN MC SEE COMMENTS; Start 03/09/21 at 18:15; Stop 03/10/21 at 10:23; Status DC Info (PHARMACY MONITORING -- do not chart) 1 each PRN DAILY PRN MC SEE COMMENTS; Start 03/09/21 at 18:15; Status Cancel Vitamin A/Vitamin D (Vitamin A & D Ointment) 1 reji PRN Q1HR PRN TP SKIN PRO TECTION Last administered on 03/20/21at 09:34; Start 03/10/21 at 01:45 Sodium Chloride 1,000 ml @ 1,000 mls/hr Q1H PRN IV hypotension; Start 03/11/21 at 08:15; Stop 03/11/21 at 14:14; Status DC Albumin Human 200 ml @ 200 mls/hr 1X PRN PRN IV Hypotension; Start 03/11/21 at 08:15; Stop 03/11/21 at 14:14; Status DC Sodium Chloride (Normal Saline Flush) 10 ml 1X PRN PRN IV AP catheter pack; Start 03/11/21 at 08:15; Stop 03/12/21 at 08:14; Status DC Sodium Chloride (Normal Saline Flush) 10 ml 1X PRN PRN IV PATIENT ACCOUNT SPECIALIST catheter pack; Start 03/11/21 at 08:15; Stop 03/12/21 at 08:14; Status DC Sodium Chloride 1,000 ml @ 400 mls/hr Q2H30M PRN IV PATENCY; Start 03/11/21 at 08:15; Stop 03/11/21 at 20:14; Status DC Info (PHARMACY MONITORING -- do not chart) 1 each PRN DAILY PRN MC SEE COMMENTS; Start 03/11/21 at 08:15; Status UNV Info (PHARMACY MONITORING -- do not chart) 1 each PRN DAILY PRN MC SEE CO MMENTS; Start 03/11/21 at 08:15; Status Cancel Heparin Sodium (Porcine) (Heparin Sodium) 5,000 unit Q8HRS SQ Last administered on 04/06/21at 06:25; Start 03/13/21 at 06:00 Multivitamins/ Minerals Therapeutic (Centrum Multivit-Mineral Liq) 5 ml DAILY PEG Last administered on 04/05/21at 08:00; Start 03/14/21 at 09:00 Info (PHARMACY MONITORING -- do not chart) 1 each PRN DAILY PRN MC SEE COMMENTS; Start 03/13/21 at 17:00; Status Cancel Piperacillin Sod/ Tazobactam Sod 3.375 gm/Sodium Chloride 50 ml @ 100 mls/hr Q6HRS IV ; Start 03/14/21 at 18:00; Status Cancel Fentanyl Citrate (Fentanyl 2ml Vial) 25 mcg PRN Q5MIN PRN IVP MILD PAIN 1-3; Start 03/17/21 at 06:00; Stop 03/17/21 at 19:00; Status DC Fentanyl Citrate (Fentanyl 2ml Vial) 50 mcg PRN Q5MIN PRN IVP MODERATE PAIN 4- 6; Start 03/17/21 at 06:00; Stop 03/17/21 at 19:00; Status DC Morphine Sulfate (Morphine Sulfate) 1 mg PRN Q10MIN PRN IVP SEVERE PAIN 7-10; Start 03/17/21 at 06:00; Stop 03/17/21 at 19:00; Status DC Ringer's Solution 1,000 ml @ 30 mls/hr Q24H IV ; Start 03/17/21 at 06:00; Stop 03/17/21 at 17:59; Status DC Hydromorphone HCl (Dilaudid) 0.5 mg PRN Q10MIN PRN IVP SEVERE PAIN 7-10, 2nd CHOICE; Start 03/17/21 at 06:00; Stop 03/17/21 at 19:00; Status DC Fentanyl Citrate 55 ml @ 0 mls/hr CONT PRN IV SEE PROTOCOL Last administered on 04/04/21at 19:36; Start 03/15/21 at 16:30 Fentanyl Citrate 55 ml @ 2 mls/hr CONT PRN IV SEE PROTOCOL; Start 03/15/21 at 21:45; Stop 03/15/21 at 21:34; Status DC Linezolid/Dextrose 300 ml @ 300 mls/hr Q12HR IV Last administered on 03/17/21at 21:44; Start 03/16/21 at 10:00; Stop 03/18/21 at 07:37; Status DC Sodium Chloride 1,000 ml @ 1,000 mls/hr Q1H PRN IV hypotension; Start 03/16/21 at 12:45; Stop 03/16/21 at 18:44; Status DC Albumin Human 200 ml @ 200 mls/hr 1X PRN PRN IV Hypotension; Start 03/16/21 at 12:45; Stop 03/16/21 at 18:44; Status DC Sodium Chloride (Normal Saline Flush) 10 ml 1X PRN PRN IV AP catheter pack; Start 03/16/21 at 12:45; Stop 03/17/21 at 12:44; Status DC Sodium Chloride (Normal Saline Flush) 10 ml 1X PRN PRN IV PATIENT ACCOUNT SPECIALIST catheter pack; Start 03/16/21 at 12:45; Stop 03/17/21 at 12:44; Status DC Sodium Chloride 1,000 ml @ 400 mls/hr Q2H30M PRN IV PATENCY; Start 03/16/21 at 12:45; Stop 03/17/21 at 00:44; Status DC Info (PHARMACY MONITORING -- do not chart) 1 each PRN DAILY PRN MC SEE COMMENTS; Start 03/16/21 at 12:45; Status UNV Info (PHARMACY MONITORING -- do not chart) 1 each PRN DAILY PRN MC SEE COMMENTS; Start 03/16/21 at 12:45; Stop 03/18/21 at 10:14; Status DC Rocuronium [place] (Zemuron) 50 mg STK-MED ONCE .ROUTE ; Start 03/17/21 at 10:09; Stop 03/17/21 at 10:09; Status DC Bupivacaine HCl/ Epinephrine Bitart (Sensorcain-Epi 0.5%-1:[id number] Mpf) 30 ml STK-MED ONCE .ROUTE ; Start 03/17/21 at 10:47; Stop 03/17/21 at 10:47; Status DC Cellulose (Surgicel Fibrillar 1x2) 1 each STK-MED ONCE .ROUTE Last administered on 03/17/21at 11:56; Start 03/17/21 at 10:47; Stop 03/17/21 at 10:47; Status DC Phenylephrine HCl (PHENYLEPHRINE in 0.9% NACL PF) 1 mg STK-MED ONCE IV ; Start 03/17/21 at 10:56; Stop 03/17/21 at 10:56; Status DC Ephedrine Sulfate (ePHEDrine PF IN SALINE SYRINGE) 50 mg STK-MED ONCE IV ; Start 03/17/21 at 10:56; Stop 03/17/21 at 10:56; Status DC Rocuronium [place] (Zemuron) 50 mg STK-MED ONCE .ROUTE ; Start 03/17/21 at 10:56; Stop 03/17/21 at 10:56; Status DC Albuterol Sulfate (Ventolin Hfa) 60 puff STK-MED ONCE INH ; Start 03/17/21 at 11:29; Stop 03/17/21 at 11:29; Status DC Rocuronium [place] (Zemuron) 50 mg STK-MED ONCE .ROUTE ; Start 03/17/21 at 11:39; Stop 03/17/21 at 11:39; Status DC Sevoflurane (Ultane) 30 ml STK-MED ONCE IH ; Start 03/17/21 at 12:20; Stop 03/17/21 at 12:20; Status DC Sodium Chloride 1,000 ml @ 1,000 mls/hr Q1H PRN IV hypotension; Start 03/17/21 at 13:30; Stop 03/17/21 at 19:29; Status DC Albumin Human 200 ml @ 200 mls/hr 1X PRN PRN IV Hypotension; Start 03/17/21 at 13:30; Stop 03/17/21 at 19:29; Status DC Acetaminophen (Tylenol) 500 mg 1X PRN PRN PO MILD PAIN / TEMP > 100.3'F; Start 03/17/21 at 13:30; Stop 03/18/21 at 13:29; Status DC Diphenhydramine HCl (Benadryl) 25 mg 1X PRN PRN IV ITCHING; Start 03/17/21 at 13:30; Stop 03/18/21 at 13:29; Status DC Diphenhydramine HCl (Benadryl) 25 mg 1X PRN PRN IV ITCHING; Start 03/17/21 at 13:30; Stop 03/18/21 at 13:29; Status DC Sodium Chloride 1,000 ml @ 400 mls/hr Q2H30M PRN IV PATENCY; Start 03/17/21 at 13:30; Stop 03/18/21 at 01:29; Status DC Info (PHARMACY MONITORING -- do not chart) 1 each PRN DAILY PRN MC SEE COMMENTS; Start 03/17/21 at 13:30; Status UNV Info (PHARMACY MONITORING -- do not chart) 1 each PRN DAILY PRN MC SEE COMMENTS; Start 03/17/21 at 13:30; Status Cancel Albumin Human 100 ml @ 100 mls/hr 1X ONCE IV Last administered on 03/17/21at 15:40; Start 03/17/21 at 14:15; Stop 03/17/21 at 15:19; Status DC Albumin Human 50 ml @ 50 mls/hr 1X ONCE IV ; Start 03/17/21 at 14:15; Stop 03/17/21 at 15:08; Status DC Albumin Human 100 ml @ 100 mls/hr 1X ONCE IV Last administered on 03/17/21at 15:41; Start 03/17/21 at 14:15; Stop 03/17/21 at 15:19; Status DC Multi-Ingred Cream/Lotion/Oil/ Oint (Artificial Tears Eye Ointment) 1 reji PRN Q1HR PRN OU DRY EYE Last administered on 03/20/21at 15:55; Start 03/17/21 at 17:30 Sodium Chloride 1,000 ml @ 1,000 mls/hr Q1H PRN IV hypotension; Start 03/18/21 at 11:00; Stop 03/18/21 at 16:59; Status DC Albumin Human 200 ml @ 200 mls/hr 1X PRN PRN IV Hypotension Last administered on 03/18/21at 12:49; Start 03/18/21 at 11:00; Stop 03/18/21 at 16:59; Status DC Sodium Chloride 1,000 ml @ 400 mls/hr Q2H30M PRN IV PATENCY; Start 03/18/21 at 11:00; Stop 03/18/21 at 22:59; Status DC Info (PHARMACY MONITORING -- do not chart) 1 each PRN DAILY PRN MC SEE COMMENTS; Start 03/18/21 at 11:00; Status Cancel Info (PHARMACY MONITORING -- do not chart) 1 each PRN DAILY PRN MC SEE COMMENTS; Start 03/18/21 at 11:00; Stop 03/21/21 at 12:46; Status DC Meropenem 1 gm/ Sodium Chloride 100 ml @ 200 mls/hr Q24H IV Last administered on 04/05/21at 16:06; Start 03/18/21 at 17:00 Sodium Chloride 1,000 ml @ 1,000 mls/hr Q1H PRN IV hypotension; Start 03/19/21 at 17:15; Stop 03/19/21 at 23:14; Status DC Albumin Human 200 ml @ 200 mls/hr 1X PRN PRN IV Hypotension; Start 03/19/21 at 17:15; Stop 03/19/21 at 23:14; Status DC Sodium Chloride 1,000 ml @ 400 mls/hr Q2H30M PRN IV PATENCY; Start 03/19/21 at 17:15; Stop 03/20/21 at 05:14; Status DC Info (PHARMACY MONITORING -- do not chart) 1 each PRN DAILY PRN MC SEE COMM ENTS; Start 03/19/21 at 17:15; Status UNV Info (PHARMACY MONITORING -- do not chart) 1 each PRN DAILY PRN MC SEE COMMENTS; Start 03/19/21 at 17:15; Status Cancel Sodium Chloride 1,000 ml @ 1,000 mls/hr Q1H PRN IV hypotension; Start 03/20/21 at 12:30; Stop 03/20/21 at 18:29; Status DC Albumin Human 200 ml @ 200 mls/hr 1X PRN PRN IV Hypotension Last administered on 03/20/21at 14:04; Start 03/20/21 at 12:30; Stop 03/20/21 at 18:29; Status DC Sodium Chloride (Normal Saline Flush) 10 ml 1X PRN PRN IV AP catheter pack; Start 03/20/21 at 12:30; Stop 03/21/21 at 12:29; Status DC Sodium Chloride (Normal Saline Flush) 10 ml 1X PRN PRN IV PATIENT [employer]OUNT [employer]IST catheter pack; Start 03/20/21 at 12:30; Stop 03/21/21 at 12:29; Status DC Sodium Chloride 1,000 ml @ 400 mls/hr Q2H30M PRN IV PATENCY; Start 03/20/21 at 12:30; Stop 03/21/21 at 00:29; Status DC Info (PHARMACY MONITORING -- do not chart) 1 each PRN DAILY PRN MC SEE COMMENTS; Start 03/20/21 at 12:30; Stop 03/21/21 at 12:47; Status DC Info (PHARMACY MONITORING -- do not chart) 1 each PRN DAILY PRN MC SEE COMMENTS; Start 03/20/21 at 12:30; Status Cancel Cefazolin Sodium/ Dextrose 50 ml @ 100 mls/hr 1X PREOP ONCE IV ; Start 03/23/21 at 13:00; Stop 03/22/21 at 06:30; Status DC Fentanyl Citrate (Fentanyl 2ml Vial) 25 mcg PRN Q5MIN PRN IVP MILD PAIN 1-3; Start 03/23/21 at 06:00; Stop 03/24/21 at 05:59; Status DC Fentanyl Citrate (Fentanyl 2ml Vial) 50 mcg PRN Q5MIN PRN IVP MODERATE PAIN 4- 6; Start 03/23/21 at 06:00; Stop 03/24/21 at 05:59; Status DC Ringer's Solution 1,000 ml @ 30 mls/hr Q24H IV ; Start 03/23/21 at 06:00; Stop 03/23/21 at 17:59; Status Cancel Sodium Chloride 1,000 ml @ 1,000 mls/hr Q1H PRN IV hypotension; Start 03/21/21 at 14:45; Stop 03/21/21 at 20:44; Status DC Albumin Human 200 ml @ 200 mls/hr 1X PRN PRN IV Hypotension Last administered on 03/21/21at 15:36; Start 03/21/21 at 14:45; Stop 03/21/21 at 20:44; Status DC Sodium Chloride 1,000 ml @ 400 mls/hr Q2H30M PRN IV PATENCY; Start 03/21/21 at 14:45; Stop 03/22/21 at 02:44; Status DC Info (PHARMACY MONITORING -- do not chart) 1 each PRN DAILY PRN MC SEE COMMENTS; Start 03/21/21 at 15:30; Status UNV Info (PHARMACY MONITORING -- do not chart) 1 each PRN DAILY PRN MC SEE COMMENTS; Start 03/21/21 at 15:30; Status Cancel Daptomycin 480 mg/ Sodium Chloride 50 ml @ 100 mls/hr [id number]@1900 IV Last administered on 03/21/21at 20:17; Start 03/21/21 at 19:00; Stop 03/22/21 at 13: 28; Status DC Micafungin Sodium 100 mg/Dextrose 100 ml @ 100 mls/hr Q24H IV Last administered on 03/24/21at 16:36; Start 03/21/21 at 18:00; Stop 03/25/21 at 10:27; Status DC Daptomycin 480 mg/ Sodium Chloride 50 ml @ 100 mls/hr QMWF IV Last administer ed on 03/25/21at 19:52; Start 03/23/21 at 16:00; Stop 03/26/21 at 10:29; Status DC Sodium Chloride 1,000 ml @ 1,000 mls/hr Q1H PRN IV hypotension; Start 03/23/21 at 10:45; Stop 03/23/21 at 16:44; Status DC Sodium Chloride 1,000 ml @ 400 mls/hr Q2H30M PRN IV PATENCY; Start 03/23/21 at 10:45; Stop 03/23/21 at 22:44; Status DC Info (PHARMACY MONITORING -- do not chart) 1 each PRN DAILY PRN MC SEE COMMENTS; Start 03/23/21 at 10:45; Stop 03/25/21 at 12:38; Status DC Cefazolin Sodium/ Dextrose (Ancef 2gm Premix) 2 gm STK-MED ONCE IV ; Start 03/23/21 at 13:00; Stop 03/24/21 at 11:58; Status DC Sodium Chloride 1,000 ml @ 1,000 mls/hr Q1H PRN IV hypotension; Start 03/25/21 at 12:30; Stop 03/25/21 at 18:29; Status DC Albumin Human 200 ml @ 200 mls/hr 1X PRN PRN IV Hypotension; Start 03/25/21 at 12:30; Stop 03/25/21 at 18:29; Status DC Sodium Chloride (Normal Saline Flush) 10 ml 1X PRN PRN IV AP catheter pack; Start 03/25/21 at 12:30; Stop 03/26/21 at 12:29; Status DC Sodium Chloride (Normal Saline Flush) 10 ml 1X PRN PRN IV PATIENT ACCOUNT SPECIALIST catheter pack; Start 03/25/21 at 12:30; Stop 03/26/21 at 12:29; Status DC Sodium Chloride 1,000 ml @ 400 mls/hr Q2H30M PRN IV PATENCY; Start 03/25/21 at 12:30; Stop 03/26/21 at 00:29; Status DC Info (PHARMACY MONITORING -- do not chart) 1 each PRN DAILY PRN MC SEE COMMENTS; Start 03/25/21 at 12:30; Stop 03/25/21 at 12:38; Status DC Info (PHARMACY MONITORING -- do not chart) 1 each PRN DAILY PRN MC SEE COMMENTS; Start 03/25/21 at 12:30; Status Cancel Furosemide (Lasix) 40 mg 1X ONCE IVP Last administered on 03/26/21at 09:54; Start 03/26/21 at 10:00; Stop 03/26/21 at 10:01; Status DC Fentanyl Citrate (Fentanyl 2ml Vial) 25 mcg PRN Q5MIN PRN IVP MILD PAIN 1-3; Start 03/27/21 at 06:00; Stop 03/28/21 at 05:59; Status DC Fentanyl Citrate (Fentanyl 2ml Vial) 50 mcg PRN Q5MIN PRN IVP MODERATE PAIN 4- 6; Start 03/27/21 at 06:00; Stop 03/28/21 at 05:59; Status DC Morphine Sulfate (Morphine Sulfate) 1 mg PRN Q10MIN PRN IVP SEVERE PAIN 7-10; Start 03/27/21 at 06:00; Stop 03/28/21 at 05:59; Status DC Ringer's Solution 1,000 ml @ 30 mls/hr Q24H IV ; Start 03/27/21 at 06:00; Stop 03/27/21 at 17:59; Status DC Hydromorphone HCl (Dilaudid) 0.5 mg PRN Q10MIN PRN IVP SEVERE PAIN 7-10, 2nd CHOICE; Start 03/27/21 at 06:00; Stop 03/28/21 at 05:59; Status DC Prochlorperazine Edisylate (Compazine) 5 mg PACU PRN PRN IVP NAUSEA, MRX1; Start 03/27/21 at 06:00; Stop 03/28/21 at 05:59; Status DC Info (PHARMACY MONITORING -- do not chart) 1 each PRN DAILY PRN MC SEE COMMENTS; Start 03/27/21 at 09:45; Stop 03/30/21 at 12:58; Status DC Info (PHARMACY MONITORING -- do not chart) 1 each PRN DAILY PRN MC SEE COMMENTS; Start 03/27/21 at 09:45; Status UNV Bupivacaine HCl/ Epinephrine Bitart (Sensorcain-Epi 0.5% Kit) 30 ml STK-MED ONCE .ROUTE Last administered on 03/27/21at 13:12; Start 03/27/21 at 10:05; Stop 03/27/21 at 10:05; Status DC Rocuronium [place] (Zemuron) 50 mg STK-MED ONCE .ROUTE ; Start 03/27/21 at 11:05; Stop 03/27/21 at 11:05; Status DC Propofol (Diprivan) 200 mg STK-MED ONCE IV ; Start 03/27/21 at 12:02; Stop 03/27/21 at 12:03; Status DC Rocuronium [place] (Zemuron) 50 mg STK-MED ONCE .ROUTE ; Start 03/27/21 at 13:16; Stop 03/27/21 at 13:17; Status DC Fentanyl Citrate (Fentanyl 2ml Vial) 100 mcg STK-MED ONCE .ROUTE ; Start 03/27/21 at 13:18; Stop 03/27/21 at 13:18; Status DC Phenylephrine HCl (PHENYLEPHRINE in 0.9% NACL PF) 1 mg STK-MED ONCE IV ; Start 03/27/21 at 13:46; Stop 03/27/21 at 13:46; Status DC Neostigmine [place] (Neostigmine Methylsulfate) 5 mg STK-MED ONCE .ROUTE ; Star t 03/27/21 at 14:06; Stop 03/27/21 at 14:07; Status DC Glycopyrrolate (Robinul) 1 mg STK-MED ONCE .ROUTE ; Start 03/27/21 at 14:07; Stop 03/27/21 at 14:07; Status DC Sevoflurane (Ultane) 60 ml STK-MED ONCE IH ; Start 03/27/21 at 14:19; Stop 03/27/21 at 14:20; Status DC Sodium Chloride (Normal Saline Flush) 3 ml QSHIFT PRN IV AFTER MEDS AND BLOOD DRAWS; Start 03/27/21 at 14:30 Naloxone HCl (Narcan) 0.4 mg PRN Q2MIN PRN IV SEE INSTRUCTIONS; Start 03/27/21 at 14:30 Sodium Chloride 1,000 ml @ 25 mls/hr Q24H IV Last administered on 03/28/21at 14:30; Start 03/27/21 at 14:30; Stop 03/29/21 at 14:07; Status DC Furosemide (Lasix) 40 mg 1X ONCE IVP Last administered on 03/29/21at 15:22; Start 03/29/21 at 15:00; Stop 03/29/21 at 15:02; Status DC Info (PHARMACY MONITORING -- do not chart) 1 each PRN DAILY PRN MC SEE COMMENTS; Start 03/30/21 at 13:00; Status Cancel Albumin Human 100 ml @ 100 mls/hr 1X ONCE IV Last administered on 03/30/21at 15:44; Start 03/30/21 at 15:45; Stop 03/30/21 at 16:44; Status DC Amlodipine Besylate (Norvasc) 10 mg DAILY PO Last administered on 04/05/21at 08:00; Start 03/31/21 at 09:00 Haloperidol Lactate (Haldol Inj) 5 mg Q8HRS IVP Last administered on 04/06/21at 06:25; Start 04/01/21 at 11:30 Sodium Chloride 1,000 ml @ 1,000 mls/hr Q1H PRN IV hypotension; Start 04/01/21 at 13:30; Stop 04/01/21 at 19:29; Status DC Sodium Chloride 1,000 ml @ 400 mls/hr Q2H30M PRN IV PATENCY; Start 04/01/21 at 13:30; Stop 04/02/21 at 01:29; Status DC Info (PHARMACY MONITORING -- do not chart) 1 each PRN DAILY PRN MC SEE COMMENTS; Start 04/01/21 at 13:30; Status Cancel Daptomycin 500 mg/ Sodium Chloride 50 ml @ 100 mls/hr Q48H IV Last administered on 04/04/21at 10:46; Start 04/02/21 at 10:00 Sodium Chloride 1,000 ml @ 1,000 mls/hr Q1H PRN IV hypotension; Start 04/03/21 at 08:15; Stop 04/03/21 at 14:14; Status DC Sodium Chloride 1,000 ml @ 400 mls/hr Q2H30M PRN IV PATENCY; Start 04/03/21 at 08:15; Stop 04/03/21 at 20:14; Status DC Info (PHARMACY MONITORING -- do not chart) 1 each PRN DAILY PRN MC SEE COMMENTS; Start 04/03/21 at 08:15; Status Cancel Albumin Human 200 ml @ 200 mls/hr 1X PRN PRN IV Hypotension Last administered on 04/03/21at 09:18; Start 04/03/21 at 09:00; Stop 04/03/21 at 14:59; Status DC Potassium Chloride/Water 100 ml @ 100 mls/hr Q1H IV Last administered on 04/04/21at 09:26; Start 04/04/21 at 07:00; Stop 04/04/21 at 08:59; Status DC Magnesium Sulfate 50 ml @ 25 mls/hr PRN DAILY PRN IV for Mag < 1.7 on am labs; Start 04/04/21 at 13:00 Potassium Chloride/Water 100 ml @ 50 mls/hr PRN Q6HRS PRN IV For K < 3.7 Last administered on 04/06/21at 00:39; Start 04/04/21 at 13:00 Potassium Chloride/Water 100 ml @ 50 mls/hr PRN Q2HR PRN IV total of 40mEq for K < 3.5; Start 04/04/21 at 13:00 Potassium Chloride/Water 100 ml @ 100 mls/hr Q1H IV Last administered on 04/04/21at 15:12; Start 04/04/21 at 14:00; Stop 04/04/21 at 15:59; Status DC Albumin Human 200 ml @ 200 mls/hr 1X PRN PRN IV Hypotension; Start 04/06/21 at 08:45; Stop 04/06/21 at 14:44 Sodium Chloride 1,000 ml @ 400 mls/hr Q2H30M PRN IV PATENCY; Start 04/06/21 at 08:45; Stop 04/06/21 at 20:44 Info (PHARMACY MONITORING -- do not chart) 1 each PRN DAILY PRN MC SEE COMMENTS; Start 04/06/21 at 08:45 Active Scripts Active Reported Novolog Flexpen (Insulin Aspart) 100 Unit/1 Ml Insuln.pen 3-7 SQ TIDACHC Lisinopril 5 Mg Tablet 1 Tab PO DAILY Lantus Solostar (Insulin Glargine,Hum.rec.anlog) 100 Unit/1 Ml Insuln.pen 5 Unit SQ QHS Atorvastatin Calcium 40 Mg Tablet 40 Mg PO HS Vitals/I & O Vital Sign - Last 24 Hours 04/05/21 04/05/21 04/05/21 04/05/21 09:00 09:20 09:24 10:00 Pulse 86 83 120 Resp 25 25 B/P (MAP) 211/108 (142) 202/101 151/69 (96) Pulse Ox 100 100 99 O2 Delivery Ventilator Ventilator Ventilator 04/05/21 04/05/21 04/05/21 04/05/21 11:00 11:45 11:50 12:00 Temp 100.2 100.2 Pulse 92 86 Resp 25 30 B/P (MAP) 140/57 (84) 178/83 (114) Pulse Ox 99 100 99 O2 Delivery Ventilator Ventilator Ventilator Ventilator 04/05/21 04/05/21 04/05/21 04/05/21 12:00 13:00 14:00 14:35 Pulse 82 94 Resp 25 27 B/P (MAP) 153/69 (97) 173/83 (113) Pulse Ox 99 100 O2 Delivery Mechanical Ventilator Ventilator Ventilator Ventilator 04/05/21 04/05/21 04/05/21 04/05/21 15:00 16:00 16:00 16:11 Temp 99.0 99.0 Pulse 80 72 Resp 28 25 B/P (MAP) 150/79 (102) 141/76 (97) Pulse Ox 99 100 100 O2 Delivery Ventilator Ventilator Mechanical Ventilator Ventilator 04/05/21 04/05/21 04/05/21 9/26/21 17:00 18:00 19:00 19:30 Pulse 80 68 75 Resp 28 28 28 B/P (MAP) 115/57 (76) 150/68 (95) 156/75 (102) Pulse Ox 99 99 99 O2 Delivery Ventilator Ventilator Ventilator Mechanical Ventilator 04/05/21 04/05/21 04/05/21 04/05/21 20:00 20:45 21:00 21:06 Temp 99.1 99.1 Pulse 66 75 66 Resp 28 20 B/P (MAP) 165/75 (105) 164/76 (105) 173/82 Pulse Ox 100 100 100 O2 Delivery Ventilator Ventilator Ventilator 04/05/21 04/05/21 04/05/21 04/06/21 22:00 22:15 23:00 00:00 Pulse 85 86 Resp 18 18 B/P (MAP) 172/77 (108) 160/80 (106) Pulse Ox 100 100 100 O2 Delivery Ventilator Ventilator Ventilator Mechanical Ventilator 04/06/21 04/06/21 04/06/21 04/06/21 00:01 00:44 01:00 02:00 Temp 98.9 98.9 Pulse 71 84 69 Resp 18 18 18 B/P (MAP) 169/71 (103) 174/83 (113) 188/92 (124) Pulse Ox 100 100 100 100 O2 Delivery Ventilator Ventilator Ventilator Ventilator 04/06/21 04/06/21 04/06/21 04/06/21 02:45 03:00 03:30 03:50 Pulse 77 70 Resp 23 B/P (MAP) 192/91 144/65 (91) Pulse Ox 100 100 O2 Delivery Ventilator Mechanical Ventilator Ventilator 04/06/21 04/06/21 04/06/21 04/06/21 04:00 05:00 06:00 07:00 Temp 97.8 97.8 Pulse 74 88 73 92 Resp 18 23 18 18 B/P (MAP) 167/73 (104) 159/79 (105) 165/85 (111) 165/83 (110) Pulse Ox 100 99 100 100 O2 Delivery Ventilator Ventilator Ventilator Ventilator Intake and Output 04/05/21 04/05/21 04/06/21 15:00 23:00 07:00 Intake Total 60 ml 1238.06 ml 1175 ml Output Total 455 ml 1070 ml 450 ml Balance -395 ml 168.06 ml 725 ml Justicifation of Admission Dx: Justifications for Admission: Justification of Admission Dx: N/A OMERO HEARN MD Apr 06, 2021 08:42
[2021-04-06] MEDS ORDERED: IV NORMAL SALINE 1000ML BAG 1,000 ML IV PRN (08:45)
[2021-04-06] MEDS ORDERED: ALBUMIN HUMAN 25% 200 ML IV PRN (08:45)
[2021-04-06] MEDS ORDERED: DIALYSIS PATIENT. MC PRN (08:45)
[2021-04-06] MEDS: DOCUSATE 100 MG/10 ML SOLUTION. PO SCH ×2 (09:00→21:12)
[2021-04-06 09:05] LABS: BASE EXCESS ABG 0 mmol/L (-3-3); HCO3 ABG 23 mmol/L (21-28); PCO2 ABG 32 mmHg (35-46); PO2 ABG 144 mmHg (75-108); SAT O2 ABG 99 % (92-99)
[2021-04-06] MEDS: MULTIVITAMINS,THERAPEUTIC 5 ML ORAL LIQUID. PEG SCH (09:05)
[2021-04-06] MEDS: FAMOTIDINE 20 MG/2 ML VIAL IVP SCH (09:06)
[2021-04-06 09:07] LABS: FIO2 ABG 40
[2021-04-06] MEDS: NYSTATIN TOPICAL POWDER 15GM BOTTLE. TP SCH ×2 (09:08→21:12)
--- NOTE | 2021-04-06 09:41 | PDOC ---
DATE OF SERVICE DATE: 04/06/21 TIME: 09:41 SUBJECTIVE ROS On vent , awake , mouthing words No complains on dialysis OBJECTIVE Vital Signs Vital Signs Date Time Temp Pulse Resp B/P (MAP) Pulse Ox O2 Delivery O2 Flow Rate FiO2 04/06/21 09:07 98 192/100 04/06/21 09:00 Ventilator 04/06/21 09:00 18 100 04/06/21 08:00 99.8 99.8 I & 0 Intake and Output 04/06/21 06:59 Intake Total 2473.06 ml Output Total 1975 ml Balance 498.06 ml IV Total 1633.06 ml Tube Feeding 780 ml Other 60 ml Output Urine Total 1975 ml PHYSICAL EXAM Physical Exam GENERAL: On vent HEENT: Anicteric. . Neck Trach+ LUNGS: decreased at bases HEART: S1, S2. No murmurs. ABDOMEN: Obese, soft. Bowel sounds present. GENITOURINARY: Kern and rectal tube in place. EXTREMITIES: Edema present no cyanosis. CENTRAL NERVOUS SYSTEM: awake, on vent PSYCHIATRIC: Unable to assess. DERM has pressure wounds DIAGNOSIS/ASSESSMENT Assessment & Plan BOB-ATN- was anuric , has been non Oliguricfor past 05/12 -2 weeks , No improvement in clearance - requiring dialysis., currently on MWF schedule, seen during treatment, tolerating well, continue as ordered, Lance López Supportive care, I/O avoid nephrotoxins, Monitor for recovery .Access- temp HDC HypoNatremia - resolved stable HypoKalemia - K low Normal, Change from Nepro to Normal K Tube feed DM 2 - Glucosuria + POA COVID 19 Pneumonia - Unvaccinated , treated, Off isolation Acute Resp Failure- Intubated ; CxR 04/01 Moderate diffuse pulmonary opacities, slightly decreased compared to prior. HTN antihypertensives Anemia -avoid DOYLE 2/2 to Thrombogenic state Family History of ESRD - Per at bedside- Pt's Mom was on dialysis and sister is on Dialysis COMMENT/RELEVANT DATA Meds Current Medications Medications (Trade) Dose Ordered Sig/Pepe Start Time Stop Time Status Last Admin Dose Admin Acetaminophen (Tylenol Supp) 650 mg PRN Q6HRS PRN 02/08/21 01:45 02/17/21 10:45 DC Acetaminophen (Tylenol) 500 mg 1X PRN PRN 03/17/21 13:30 03/18/21 13:29 DC Albumin Human 200 ml @ 200 mls/hr 1X PRN PRN 04/06/21 08:45 04/06/21 14:44 Albuterol Sulfate (Ventolin Hfa) 60 puff STK-MED ONCE 03/17/21 11:29 03/17/21 11:29 DC Alteplase, Recombinant (Cathflo For Central Catheter Clearance) 1 mg 1X ONCE 02/27/21 14:30 02/27/21 14:36 DC 02/27/21 15:19 1 MG Alteplase, Recombinant (Cathflo) 2 mg 1X ONCE 02/27/21 11:00 02/27/21 11:01 DC 02/27/21 11:20 2 MG Amlodipine Besylate (Norvasc) 10 mg DAILY 03/31/21 09:00 04/06/21 09:07 10 MG Atorvastatin Calcium (Lipitor) 40 mg HS 02/08/21 21:00 04/05/21 21:05 40 MG Atropine Sulfate (ATROPINE 0.5mg SYRINGE) 0.5 mg PRN Q5MIN PRN 02/16/21 12:00 Azithromycin 250 mg/Sodium Chloride 250 ml @ 250 mls/hr Q24H 02/14/21 13:30 02/18/21 14:29 DC 02/18/21 11:51 250 MLS/HR Benzonatate (Tessalon Perle) 100 mg [id number] 02/10/21 23:30 02/17/21 10:45 DC 02/16/21 22:07 100 MG Bupivacaine HCl/ Epinephrine Bitart (Sensorcain-Epi 0.5% Kit) 30 ml STK-MED ONCE 03/27/21 10:05 03/27/21 10:05 DC 03/27/21 13:12 16 ML Bupivacaine HCl/ Epinephrine Bitart (Sensorcain-Epi 0.5%-1:[id number] Mpf) 30 ml STK-MED ONCE 03/17/21 10:47 03/17/21 10:47 DC Carvedilol (Coreg) 6.25 mg [id number] 02/08/21 20:30 02/23/21 15:50 DC 02/23/21 08:06 6.25 MG Cefazolin Sodium/ Dextrose (Ancef 2gm Premix) 2 gm STK-MED ONCE 03/23/21 13:00 03/24/21 11:58 DC Ceftriaxone Sodium (Rocephin) 1 gm Q24H 02/14/21 13:00 02/23/21 07:34 DC 02/22/21 12:42 1 GM Cellulose (Surgicel Fibrillar 1x2) 1 each STK-MED ONCE 03/17/21 10:47 03/17/21 10:47 DC 03/17/21 11:56 1 EACH Daptomycin 480 mg/ Sodium Chloride 50 ml @ 100 mls/hr QMWF 03/23/21 16:00 03/26/21 10:29 DC 03/25/21 19:52 100 MLS/HR Daptomycin 500 mg/ Sodium Chloride 50 ml @ 100 mls/hr Q48H 04/02/21 10:00 04/04/21 10:46 100 MLS/HR Dexamethasone Sodium Phosphate (Decadron) 2 mg 1X ONCE 02/27/21 09:00 02/26/21 07:15 DC Dexmedetomidine HCl 400 mcg/ Sodium Chloride 100 ml @ 0 mls/hr CONT PRN 02/27/21 09:45 04/06/21 06:24 29 MLS/HR Dextrose (Dextrose 50%-Water Syringe) 12.5 gm PRN Q15MIN PRN 03/01/21 13:00 03/01/21 12:55 12.5 GM Diphenhydramine HCl (Benadryl) 25 mg 1X PRN PRN 03/17/21 13:30 03/18/21 13:29 DC Docusate Sodium (Colace Solution) 100 mg BID 02/23/21 12:00 04/04/21 09:29 100 MG Docusate Sodium (Colace) 100 mg PRN DAILY PRN 02/07/21 08:45 02/23/21 10:47 DC Enalaprilat (Vasotec Inj) 0.625 mg Q6HRS 02/08/21 16:15 02/09/21 16:01 DC 02/09/21 13:42 0.625 MG Enoxaparin Sodium (Lovenox 30mg Syringe) 30 mg Q24H 03/08/21 09:00 03/12/21 15:38 DC 03/12/21 09:04 30 MG Enoxaparin Sodium (Lovenox 40mg Syringe) 40 mg BID 02/09/21 09:00 03/08/21 13:56 DC 03/08/21 08:26 40 MG Enoxaparin Sodium (Lovenox Per Pharmacy Prophylaxis Dosing) 1 each PRN DAILY PRN 02/09/21 06:45 03/12/21 15:38 DC Ephedrine Sulfate (ePHEDrine PF IN SALINE SYRINGE) 50 mg STK-MED ONCE 03/17/21 10:56 03/17/21 10:56 DC Famotidine (Pepcid Vial) 20 mg DAILY 03/10/21 09:00 04/06/21 09:06 20 MG Fentanyl Citrate (Fentanyl 2ml Vial) 100 mcg STK-MED ONCE 03/27/21 13:18 03/27/21 13:18 DC Fluconazole/ Sodium Chloride 100 ml @ 100 mls/hr Q24H 03/07/21 09:00 03/17/21 08:03 DC 03/16/21 08:29 100 MLS/HR Furosemide (Lasix) 40 mg 1X ONCE 03/29/21 15:00 03/29/21 15:02 DC 03/29/21 15:22 40 MG Glycerin/ Hypromellose/ Polyethylene (Artificial Tears) 1 drop PRN Q1HR PRN 02/17/21 10:00 04/05/21 08:02 1 DROP Glycopyrrolate (Robinul) 1 mg STK-MED ONCE 03/27/21 14:07 03/27/21 14:07 DC Guaifenesin (Robitussin Dm) 10 ml PRN Q6HRS PRN 02/10/21 23:30 02/16/21 09:06 10 ML Haloperidol Lactate (Haldol Inj) 5 mg Q8HRS 04/01/21 11:30 04/06/21 06:25 5 MG Heparin Sodium (Porcine) (Heparin Sodium) 5,000 unit Q8HRS 03/13/21 06:00 04/06/21 06:25 5,000 UNIT Hydralazine HCl (Apresoline Inj) 10 mg PRN Q4HRS PRN 02/11/21 12:15 04/06/21 02:45 10 MG Hydromorphone HCl (Dilaudid) 0.5 mg PRN Q10MIN PRN 03/27/21 06:00 03/28/21 05:59 DC Info (PHARMACY MONITORING -- do not chart) 1 each PRN DAILY PRN 04/06/21 08:45 Insulin Glargine (Lantus Syringe) 5 unit BID 03/06/21 09:00 04/05/21 21:13 5 UNIT Insulin Human Lispro (HumaLOG) 12 units Q6HRS 02/20/21 12:00 02/28/21 15:38 DC 02/27/21 05:41 12 UNITS Insulin Human Regular 100 ml @ 10 mls/hr 1X ONCE 02/07/21 06:30 02/07/21 16:54 DC 02/07/21 09:31 6.5 MLS/HR Insulin Human Regular 100 unit/ Sodium Chloride 101 ml @ 0 mls/hr CONT PRN PRN 02/07/21 06:00 02/07/21 16:54 DC Labetalol HCl (Normodyne Iv Push) 10 mg PRN Q2HR PRN 02/08/21 00:45 03/26/21 21:14 10 MG Lactobacillus Rhamnosus (Culturelle) 1 cap BID 02/16/21 21:00 02/17/21 10:45 DC 02/16/21 22:02 1 CAP Lidocaine HCl (Buffered Lidocaine 1%) 3 ml STK-MED ONCE 03/07/21 13:25 03/07/21 13:25 DC Linezolid (Zyvox) 600 mg BID 03/05/21 09:00 03/12/21 07:00 DC 03/11/21 20:33 600 MG Linezolid/Dextrose 300 ml @ 300 mls/hr Q12HR 03/16/21 10:00 03/18/21 07:37 DC 03/17/21 21:44 300 MLS/HR Lisinopril (Prinivil) 20 mg DAILY 02/17/21 09:00 03/09/21 10:43 DC 02/27/21 09:10 20 MG Lorazepam (Ativan Inj) 0.5 mg PRN Q6HRS PRN 02/08/21 10:00 04/01/21 15:32 0.5 MG Magnesium Sulfate 50 ml @ 25 mls/hr PRN DAILY PRN 04/04/21 13:00 Meropenem 1 gm/ Sodium Chloride 100 ml @ 200 mls/hr Q24H 03/18/21 17:00 04/05/21 16:06 200 MLS/HR Methylprednisolone Sodium Succinate (SOLU-Medrol 125MG VIAL) 80 mg Q8HRS 02/25/21 09:00 02/26/21 07:09 DC 02/26/21 05:52 80 MG Metoclopramide HCl (Reglan Vial) 10 mg PRN Q6HRS PRN 02/08/21 00:45 02/12/21 15:51 10 MG Micafungin Sodium 100 mg/Dextrose 100 ml @ 100 mls/hr Q24H 03/21/21 18:00 03/25/21 10:27 DC 03/24/21 16:36 100 MLS/HR Midazolam HCl 100 ml @ 0 mls/hr CONT PRN 02/17/21 10:00 03/20/21 17:18 5 MLS/HR Morphine Sulfate (Morphine Sulfate) 1 mg PRN Q10MIN PRN 03/27/21 06:00 03/28/21 05:59 DC Multi-Ingred Cream/Lotion/Oil/ Oint (Artificial Tears Eye Ointment) 1 reji PRN Q1HR PRN 03/17/21 17:30 03/20/21 15:55 1 REJI Multivitamins/ Minerals Therapeutic (Centrum Multivit-Mineral Liq) 5 ml DAILY 03/14/21 09:00 04/06/21 09:05 5 ML Naloxone HCl (Narcan) 0.4 mg PRN Q2MIN PRN 03/27/21 14:30 Neostigmine [place] (Neostigmine Methylsulfate) 5 mg STK-MED ONCE 03/27/21 14:06 03/27/21 14:07 DC Norepinephrine Bitartrate 8 mg/ Dextrose 258 ml @ 21.711 mls/ hr CONT PRN 03/06/21 13:45 03/19/21 18:45 23.3 MLS/HR Nystatin (Nystop) 1 reji BID 03/02/21 21:00 04/06/21 09:08 1 REJI Ondansetron HCl (Zofran Odt) 4 mg 1X ONCE 02/06/21 23:30 02/06/21 23:31 DC 02/06/21 23:57 4 MG Ondansetron HCl (Zofran) 4 mg 1X ONCE 02/07/21 20:00 02/07/21 20:07 DC 02/07/21 20:06 4 MG Phenylephrine HCl (PHENYLEPHRINE in 0.9% NACL PF) 1 mg STK-MED ONCE 03/27/21 13:46 03/27/21 13:46 DC Piperacillin Sod/ Tazobactam Sod (Zosyn Per Pharmacy) 1 each PRN DAILY PRN 02/23/21 07:45 03/17/21 10:04 DC Piperacillin Sod/ Tazobactam Sod 2.25 gm/Sodium Chloride 50 ml @ 100 mls/hr Q8HRS 03/07/21 14:00 03/17/21 08:03 DC 03/17/21 05:58 100 MLS/HR Piperacillin Sod/ Tazobactam Sod 3.375 gm/Sodium Chloride 50 ml @ 100 mls/hr Q6HRS 03/14/21 18:00 Cancel Piperacillin Sod/ Tazobactam Sod 4.5 gm/Sodium Chloride 100 ml @ 200 mls/hr Q6HRS 02/23/21 08:00 03/07/21 08:18 DC 03/07/21 06:12 200 MLS/HR Potassium Chloride/Water 100 ml @ 100 mls/hr Q1H 04/04/21 14:00 04/04/21 15:59 DC 04/04/21 15:12 100 MLS/HR Potassium Chloride (Klor-Con) 40 meq 1X ONCE 02/13/21 12:00 02/13/21 12:01 DC 02/13/21 13:21 40 MEQ Prochlorperazine Edisylate (Compazine) 5 mg PACU PRN PRN 03/27/21 06:00 03/28/21 05:59 DC Propofol (Diprivan) 200 mg STK-MED ONCE 03/27/21 12:02 03/27/21 12:03 DC Remdesivir 100 mg/ Sodium Chloride 230 ml @ 460 mls/hr Q24H 02/15/21 12:00 02/18/21 12:29 DC 02/18/21 11:52 460 MLS/HR Remdesivir 200 mg/ Sodium Chloride 210 ml @ 210 mls/hr 1X ONCE 02/11/21 13:00 02/12/21 11:55 DC 02/11/21 14:33 210 MLS/HR Ringer's Solution 1,000 ml @ 30 mls/hr Q24H 03/27/21 06:00 03/27/21 17:59 DC Rocuronium [place] (Zemuron) 50 mg STK-MED ONCE 03/27/21 13:16 03/27/21 13:17 DC Sennosides (Senna) 17.2 mg PRN BID PRN 02/07/21 08:45 02/22/21 08:29 17.2 MG Sevoflurane (Ultane) 60 ml STK-MED ONCE 03/27/21 14:19 03/27/21 14:20 DC Sodium Chloride 1,000 ml @ 400 mls/hr Q2H30M PRN 04/06/21 08:45 04/06/21 20:44 Sodium Chloride (Normal Saline Flush) 3 ml QSHIFT PRN 03/27/21 14:30 Succinylcholine Chloride (Anectine) 200 mg STK-MED ONCE 02/17/21 10:00 02/25/21 08:40 DC Vancomycin HCl (Vanco Per Pharmacy) 1 each PRN DAILY PRN 03/04/21 18:30 03/05/21 08:59 DC 03/04/21 19:47 1 EACH Vancomycin HCl (Vancomycin Trough Level) 1 each 1X ONCE 03/06/21 07:00 03/06/21 07:01 Cancel Vancomycin HCl 1.5 gm/Sodium Chloride 500 ml @ 250 mls/hr Q12H 03/05/21 07:30 03/05/21 08:58 DC Vancomycin HCl 1 gm/Sodium Chloride 250 ml @ 250 mls/hr Q12H 03/04/21 20:00 UNV Vancomycin HCl 2 gm/Sodium Chloride 500 ml @ 250 mls/hr 1X ONCE 03/04/21 19:00 03/04/21 20:59 DC 03/04/21 19:26 250 MLS/HR Vecuronium [place] (Norcuron Bolus) 6 mg PRN Q2HRS PRN 03/06/21 14:30 03/16/21 10:16 5 MG Vitamin A/Vitamin D (Vitamin A & D Ointment) 1 reji PRN Q1HR PRN 03/10/21 01:45 03/20/21 09:34 1 REJI Lab Laboratory Tests Test 04/05/21 12:01 04/05/21 12:10 04/05/21 17:48 04/05/21 18:25 Glucose (Fingerstick) 268 mg/dL (70-99) 145 mg/dL (70-99) Potassium Level 4.1 mmol/L (3.5-5.1) 4.2 mmol/L (3.5-5.1) Test 04/06/21 00:00 04/06/21 00:01 04/06/21 06:24 04/06/21 06:30 Glucose (Fingerstick) 276 mg/dL (70-99) 182 mg/dL (70-99) Potassium Level 3.6 mmol/L (3.5-5.1) 3.5 mmol/L (3.5-5.1) Sodium Level 142 mmol/L (136-145) Chloride Level 103 mmol/L (98-107) Carbon Dioxide Level 26 mmol/L (21-32) Anion Gap 13 (6-14) Blood Urea Nitrogen 45 mg/dL (7-20) Creatinine 3.9 mg/dL (0.6-1.0) Estimated GFR (Cockcroft-Gault) 12.5 Glucose Level 182 mg/dL (70-99) Calcium Level 9.4 mg/dL (8.5-10.1) Magnesium Level 2.2 mg/dL (1.8-2.4) Test 04/06/21 08:00 O2 Saturation 99 % (92-99) Arterial Blood pH 7.48 (7.35-7.45) Arterial Blood pCO2 at Patient Temp 32 mmHg (35-46) Arterial Blood pO2 at Patient Temp 144 mmHg (75-108) Arterial Blood HCO3 23 mmol/L (21-28) Arterial Blood Base Excess 0 mmol/L (-3-3) FiO2 40 Results All relevant outside records, renal labs, imaging studies, telemetry/EKG's were reviewed. Justicifation of Admission Dx: Justifications for Admission: Justification of Admission Dx: N/A GIGI CARMEN MD Apr 06, 2021 09:41
[2021-04-06] MEDS: INSULIN GLARGINE SYRINGE. SQ SCH ×2 (09:57→21:20)
--- NOTE | 2021-04-06 10:36 | PDOC ---
Infectious Disease Note Subjective: Subjective Pt intubated Awake alert, mouthing words, comfortable Undergoing dialysis session ROS: ROS Unobtainable Vital Signs: Vital Signs Vital Signs Date Time Temp Pulse Resp B/P (MAP) Pulse Ox O2 Delivery O2 Flow Rate FiO2 04/06/21 10:00 106 36 188/86 (120) 99 Ventilator 04/06/21 08:00 99.8 99.8 Physical Exam: PHYSICAL EXAM GENERAL: Intubated HEENT: Normocephalic, atraumatic. Anicteric. Slight bilateral periorbital edema. Neck right IJ HDC clean Trach + LUNGS: Rhonchi. HEART: S1, S2. No murmurs. ABDOMEN: Obese, soft. Bowel sounds present. Nontender, nondistended. Abdominal and pubis mons edema noted. PEG tube in place GENITOURINARY: Kern and fecal tube in place. EXTREMITIES: Edema present no cyanosis. CENTRAL NERVOUS SYSTEM: Intubated. PSYCHIATRIC: Unable to assess. Derm has pressure wounds wound pictures noted in chart. Generalized rash, PICC line February 14, right IJ HDC clean March 07 Medications: Inpatient Meds: Medications reviewed. Labs: Lab Laboratory Tests Test 04/05/21 12:01 04/05/21 12:10 04/05/21 17:48 04/05/21 18:25 Glucose (Fingerstick) 268 mg/dL (70-99) 145 mg/dL (70-99) Potassium Level 4.1 mmol/L (3.5-5.1) 4.2 mmol/L (3.5-5.1) Test 04/06/21 00:00 04/06/21 00:01 04/06/21 06:24 04/06/21 06:30 Glucose (Fingerstick) 276 mg/dL (70-99) 182 mg/dL (70-99) Potassium Level 3.6 mmol/L (3.5-5.1) 3.5 mmol/L (3.5-5.1) Sodium Level 142 mmol/L (136-145) Chloride Level 103 mmol/L (98-107) Carbon Dioxide Level 26 mmol/L (21-32) Anion Gap 13 (6-14) Blood Urea Nitrogen 45 mg/dL (7-20) Creatinine 3.9 mg/dL (0.6-1.0) Estimated GFR (Cockcroft-Gault) 12.5 Glucose Level 182 mg/dL (70-99) Calcium Level 9.4 mg/dL (8.5-10.1) Magnesium Level 2.2 mg/dL (1.8-2.4) Test 04/06/21 08:00 O2 Saturation 99 % (92-99) Arterial Blood pH 7.48 (7.35-7.45) Arterial Blood pCO2 at Patient Temp 32 mmHg (35-46) Arterial Blood pO2 at Patient Temp 144 mmHg (75-108) Arterial Blood HCO3 23 mmol/L (21-28) Arterial Blood Base Excess 0 mmol/L (-3-3) FiO2 40 Micro GRAM STAIN EVALUATION Final Final This specimen is of good quality and is acceptable for routine bacterial culture. Culture results to follow. NO ORGANISMS SEEN. SQUAMOUS EPI CELL:RARE PMN (WBCs):MODERATE Unless otherwise specified, Testing Performed by: [address] [address] For Inquires, the Physician may contact the Microbiology department at [phone] RESPIRATORY CULTURE Final Final MODERATE GRAM NEGATIVE RODS on 03/18/21 at 1120 FINAL ID= [ACINETOBACTER URSINGII.] ACINETOBACTER URSINGII. ANTIMICROBIAL SUSCEPTIBILITY Final Comment NEG SAGE 56 ACINETOBACTER URSINGII. ANTIBIOTIC RESULT INTERPRETATION AMPICILLIN/SULBACTAM <=4/2 S AMIKACIN <=16 S CEFTRIAXONE 2 S CEFTAZIDIME 16 I CEFOTAXIME 16 I CIPROFLOXACIN <=0.25 S CEFEPIME 4 S GENTAMICIN <=2 S LEVOFLOXACIN <=0.5 S RUN DATE: 03/19/21 [email or web address] *LIVE* PAGE 2 RUN TIME: 1120 Specimen Inquiry SPEC: [id number] PATIENT: ARIADNA BANKS [id number] (Continued) Procedure Result CONTINUED ON NEXT PAGE ---- -------- RUN DATE: 03/19/21 [facility] *LIVE* PAGE 3 RUN TIME: 1120 Specimen Inquiry SPEC: [id number] PATIENT: ARIADNA BANKS [id number] (Continued) Procedure Result ANTIMICROBIAL SUSCEPTIBILITY Final (continued) MINOCYCLINE <=4 S MEROPENEM <=1 S TRIMETHOPRIM/SULFAMETHOXAZOLE <=0.5/9.5 S TOBRAMYCIN <=2 S Unless otherwise specified, Testing Performed by: [address] [place] [address] For Inquires, the Physician may contact the Microbiology department at [phone] Culture negative Objective: Assessment: 1. Febrile illness. Resolving 2. COVID-19 infection present on date of admission, 02/06/2021. Status post remdesivir, dexamethasone. 3. Acute hypoxic respiratory failure, status post intubation. S/P Trach on 03/17 Trach cultures positive for Rock albicans and now acinebacter ursungi 4. Diabetes. 5. Diarrhea. 6. Hypertension. 7. Hyperlipidemia. 8. Anemia. 9. BOB on HD 10.UC rock albican, ua neg Plan: Plan of Care Cont Meropenem March 18 Continue daptomycin, renal dosing April 02 F/U Blood culture UA urine culture C. 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 Prognosis poor D/W KAITLYNN CURIEL MD Apr 06, 2021 10:36
[2021-04-06] MEDS: DAPTOmycin (GENERIC) IVPB 500 MG in IV NORMAL SALINE 50ML 50 ML IV SCH (15:10)
[2021-04-06] MEDS: MEROPENEM 1 GM in IV NORMAL SALINE 100ML 100 ML IV SCH (17:35)
[2021-04-06] MEDS: ATORVASTATIN CALCIUM 40 MG TABLET. PO SCH (21:12)
[2021-04-06] MEDS: ACETAMINOPHEN 650 MG/20.3 ML SOLUTION. PEG PRN (21:12)
[2021-04-07] VITALS (23 sets, daily range): BP systolic 102–204; BP diastolic 52–119
[2021-04-07] MEDS: INSULIN LISPRO 300 UNITS/3 ML VIAL. SQ SCH ×5 (00:46→23:35)
[2021-04-07] MEDS: PROPOFOL 100 ML IV PRN ×3 (00:52→23:33)
[2021-04-07] MEDS: DEXMEDETOMIDINE 400 MCG in IV NORMAL SALINE 100ML 96 ML IV PRN ×7 (00:54→23:50)
[2021-04-07] MEDS: HALOPERIDOL LACTATE 5 MG/ML VIAL. IVP SCH (05:51)
[2021-04-07] MEDS: HEPARIN for SUB-Q USE 5,000 UNIT/ML VIAL. SQ SCH ×3 (05:53→21:09)
[2021-04-07 06:01] LABS: CALCIUM 9.4 mg/dL (8.5-10.1); GFR 16.9; POTASSIUM 3.5 mmol/L (3.5-5.1)
[2021-04-07] MEDS: FAMOTIDINE 20 MG/2 ML VIAL IVP SCH (08:06)
[2021-04-07] MEDS: MULTIVITAMINS,THERAPEUTIC 5 ML ORAL LIQUID. PEG SCH (08:07)
[2021-04-07] MEDS: DOCUSATE 100 MG/10 ML SOLUTION. PO SCH ×2 (08:10→21:07)
[2021-04-07] MEDS: NYSTATIN TOPICAL POWDER 15GM BOTTLE. TP SCH ×2 (08:11→21:09)
[2021-04-07 08:32] LABS: BASE EXCESS ABG -1 mmol/L (-3-3); HCO3 ABG 23 mmol/L (21-28); PCO2 ABG 32 mmHg (35-46); PO2 ABG 151 mmHg (75-108); SAT O2 ABG 99 % (92-99)
--- NOTE | 2021-04-07 08:37 | PDOC ---
Infectious Disease Note Subjective: Subjective Pt intubated /sedated Tolerated T-tube trial well yesterday Discussed with RN Had a bout of nausea and vomiting T-max 100 F Vital Signs: Vital Signs Vital Signs Date Time Temp Pulse Resp B/P (MAP) Pulse Ox O2 Delivery O2 Flow Rate FiO2 04/07/21 08:17 100 Ventilator 04/07/21 08:09 71 133/67 04/07/21 06:00 18 04/07/21 04:00 99.4 99.4 Physical Exam: PHYSICAL EXAM GENERAL: Intubated HEENT: Normocephalic, atraumatic. Anicteric. Slight bilateral periorbital edema. Latter improving Neck right IJ HDC clean Trach + LUNGS: Rhonchi. HEART: S1, S2. No murmurs. ABDOMEN: Obese, soft. Bowel sounds present. Nontender, nondistended. PEG tube in place GENITOURINARY: Kern and fecal tube in place. EXTREMITIES: Edema present no cyanosis. CENTRAL NERVOUS SYSTEM: Intubated. PSYCHIATRIC: Unable to assess. Derm has pressure wounds wound pictures noted in chart. Generalized rash, PICC line February 14, right IJ HDC clean March 07 Medications: Inpatient Meds: Medications reviewed. Labs: Lab Laboratory Tests Test 04/06/21 18:43 04/07/21 00:11 04/07/21 05:05 04/07/21 05:50 Glucose (Fingerstick) 193 mg/dL (70-99) 256 mg/dL (70-99) 256 mg/dL (70-99) Sodium Level 137 mmol/L (136-145) Potassium Level 3.5 mmol/L (3.5-5.1) Chloride Level 99 mmol/L (98-107) Carbon Dioxide Level 27 mmol/L (21-32) Anion Gap 11 (6-14) Blood Urea Nitrogen 32 mg/dL (7-20) Creatinine 3.0 mg/dL (0.6-1.0) Estimated GFR (Cockcroft-Gault) 16.9 Glucose Level 276 mg/dL (70-99) Calcium Level 9.4 mg/dL (8.5-10.1) Micro GRAM STAIN EVALUATION Final Final This specimen is of good quality and is acceptable for routine bacterial culture. Culture results to follow. NO ORGANISMS SEEN. SQUAMOUS EPI CELL:RARE PMN (WBCs):MODERATE Unless otherwise specified, Testing Performed by: [address] [address] For Inquires, the Physician may contact the Microbiology department at [phone] RESPIRATORY CULTURE Final Final MODERATE GRAM NEGATIVE RODS on 03/18/21 at 1120 FINAL ID= [ACINETOBACTER URSINGII.] ACINETOBACTER URSINGII. ANTIMICROBIAL SUSCEPTIBILITY Final Comment NEG SAGE 56 ACINETOBACTER URSINGII. ANTIBIOTIC RESULT INTERPRETATION AMPICILLIN/SULBACTAM <=4/2 S AMIKACIN <=16 S CEFTRIAXONE 2 S CEFTAZIDIME 16 I CEFOTAXIME 16 I CIPROFLOXACIN <=0.25 S CEFEPIME 4 S GENTAMICIN <=2 S LEVOFLOXACIN <=0.5 S RUN DATE: 03/19/21 [facility] *LIVE* PAGE 2 RUN TIME: 1120 Specimen Inquiry SPEC: [id number] PATIENT: ARIADNA BANKS [id number] (Continued) Procedure Result CONTINUED ON NEXT PAGE RUN DATE: 03/19/21 [facility] *LIVE* PAGE 3 RUN TIME: 1120 Specimen Inquiry SPEC: [id number] PATIENT: ARIADNA BANKS [id number] (Continued) ---- -------- Procedure Result ANTIMICROBIAL SUSCEPTIBILITY Final (continued) MINOCYCLINE <=4 S MEROPENEM <=1 S TRIMETHOPRIM/SULFAMETHOXAZOLE <=0.5/9.5 S TOBRAMYCIN <=2 S Unless otherwise specified, Testing Performed by: [address] [address] For Inquires, the Physician may contact the Microbiology department at [phone] Culture negative Objective: Assessment: 1. Febrile illness. 2. COVID-19 infection present on date of admission, 02/06/2021. Status post remdesivir, dexamethasone. 3. Acute hypoxic respiratory failure, status post intubation. S/P Trach on 03/17 Trach cultures positive for Rock albicans and now acinebacter ursungi 4. Diabetes. 5. Diarrhea. 6. Hypertension. 7. Hyperlipidemia. 8. Anemia. 9. BOB on HD 10.UC rock albican, ua neg 11. Nausea and vomiting Plan: Plan of Care Cont Meropenem Continue daptomycin Awaiting PICC line exchange F/U Blood culture UA urine culture C. 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 Prognosis poor D/W KAITLYNN CURIEL MD Apr 07, 2021 08:37
[2021-04-07 09:00] LABS: FIO2 ABG 40/VENT
[2021-04-07] MEDS: INSULIN GLARGINE SYRINGE. SQ SCH ×2 (09:28→21:10)
--- NOTE | 2021-04-07 09:31 | PDOC ---
PULMONARY PROGRESS NOTES DATE: 04/07/21 TIME: 09:29 Subjective Patient tolerated pressure support for 11 hours yesterday. Currently remains on 40% FiO2. Opens eyes to commands. Vitals Vital Signs Date Time Temp Pulse Resp B/P (MAP) Pulse Ox O2 Delivery O2 Flow Rate FiO2 04/07/21 09:00 75 18 135/67 (89) 100 Ventilator 04/07/21 08:00 99.8 99.8 General: Alert Lungs: Clear Cardiovascular: S1 Abdomen: Soft, Non-tender Skin: Warm Labs Laboratory Tests Test 04/05/21 12:01 04/05/21 12:10 04/05/21 17:48 04/05/21 18:25 Glucose (Fingerstick) 268 mg/dL (70-99) 145 mg/dL (70-99) Potassium Level 4.1 mmol/L (3.5-5.1) 4.2 mmol/L (3.5-5.1) Test 04/06/21 00:00 04/06/21 00:01 04/06/21 06:24 04/06/21 06:30 Glucose (Fingerstick) 276 mg/dL (70-99) 182 mg/dL (70-99) Potassium Level 3.6 mmol/L (3.5-5.1) 3.5 mmol/L (3.5-5.1) Sodium Level 142 mmol/L (136-145) Chloride Level 103 mmol/L (98-107) Carbon Dioxide Level 26 mmol/L (21-32) Anion Gap 13 (6-14) Blood Urea Nitrogen 45 mg/dL (7-20) Creatinine 3.9 mg/dL (0.6-1.0) Estimated GFR (Cockcroft-Gault) 12.5 Glucose Level 182 mg/dL (70-99) Calcium Level 9.4 mg/dL (8.5-10.1) Magnesium Level 2.2 mg/dL (1.8-2.4) Hepatitis B Surface Antigen Nonreactive (Nonreactive) Test 04/06/21 08:00 04/06/21 18:43 04/07/21 00:11 04/07/21 05:05 O2 Saturation 99 % (92-99) Arterial Blood pH 7.48 (7.35-7.45) Arterial Blood pCO2 at Patient Temp 32 mmHg (35-46) Arterial Blood pO2 at Patient Temp 144 mmHg (75-108) Arterial Blood HCO3 23 mmol/L (21-28) Arterial Blood Base Excess 0 mmol/L (-3-3) FiO2 40 Glucose (Fingerstick) 193 mg/dL (70-99) 256 mg/dL (70-99) Sodium Level 137 mmol/L (136-145) Potassium Level 3.5 mmol/L (3.5-5.1) Chloride Level 99 mmol/L (98-107) Carbon Dioxide Level 27 mmol/L (21-32) Anion Gap 11 (6-14) Blood Urea Nitrogen 32 mg/dL (7-20) Creatinine 3.0 mg/dL (0.6-1.0) Estimated GFR (Cockcroft-Gault) 16.9 Glucose Level 276 mg/dL (70-99) Calcium Level 9.4 mg/dL (8.5-10.1) Test 04/07/21 05:50 04/07/21 08:00 Glucose (Fingerstick) 256 mg/dL (70-99) O2 Saturation 99 % (92-99) Arterial Blood pH 7.47 (7.35-7.45) Arterial Blood pCO2 at Patient Temp 32 mmHg (35-46) Arterial Blood pO2 at Patient Temp 151 mmHg (75-108) Arterial Blood HCO3 23 mmol/L (21-28) Arterial Blood Base Excess -1 mmol/L (-3-3) FiO2 40/vent Laboratory Tests Test 04/06/21 18:43 04/07/21 00:11 04/07/21 05:05 04/07/21 05:50 Glucose (Fingerstick) 193 mg/dL (70-99) 256 mg/dL (70-99) 256 mg/dL (70-99) Sodium Level 137 mmol/L (136-145) Potassium Level 3.5 mmol/L (3.5-5.1) Chloride Level 99 mmol/L (98-107) Carbon Dioxide Level 27 mmol/L (21-32) Anion Gap 11 (6-14) Blood Urea Nitrogen 32 mg/dL (7-20) Creatinine 3.0 mg/dL (0.6-1.0) Estimated GFR (Cockcroft-Gault) 16.9 Glucose Level 276 mg/dL (70-99) Calcium Level 9.4 mg/dL (8.5-10.1) Test 04/07/21 08:00 O2 Saturation 99 % (92-99) Arterial Blood pH 7.47 (7.35-7.45) Arterial Blood pCO2 at Patient Temp 32 mmHg (35-46) Arterial Blood pO2 at Patient Temp 151 mmHg (75-108) Arterial Blood HCO3 23 mmol/L (21-28) Arterial Blood Base Excess -1 mmol/L (-3-3) FiO2 40/vent Medications Active Scripts Medications Dose Route/Sig Max Daily Dose Days Date Category Novolog Flexpen (Insulin Aspart) 100 Unit/1 Ml Insuln.pen 3-7 SQ TIDACHC 02/07/21 Reported Lisinopril 5 Mg Tablet 1 Tab PO DAILY 02/07/21 Reported Lantus Solostar (Insulin Glargine,Hum.rec.anlog) 100 Unit/1 Ml Insuln.pen 5 Unit SQ QHS 04/09/15 Reported Atorvastatin Calcium 40 Mg Tablet 40 Mg PO HS 04/09/15 Reported Impression . IMPRESSION: 1. Acute hypoxic respiratory failure secondary to COVID-19 viral pneumonia/acute lung injury and early acute respiratory distress syndrome. S/P intubation 02/17/21. Status post tracheostomy. 2. Nonsmoker. 3. Abnormal chest x-ray consistent with COVID-19 viral pneumonia. 4. Diabetic ketoacidosis--resolved 5. Underlying obesity contributing to hypoxia as well. 6. BOB . hemodialysis started 03/07 7. Fever, 30 ID 8. Abnormal chest x-ray with diffuse interstitial infiltrates compatible with viral pneumonia 9. [place] in the sputum is a contamination 10. Septic shoc 11. s/p lap G-tube 03/27 12. Delirium Plan . Updated 04/07 Patient tolerated pressure support for 11 hours yesterday. We will initiate trach shield trial today. Antibiotics per ID Follow cultures Continue hemodialysis. Follow renal recommendations. DVT GI prophylaxis Nutritional support Updated 04/06 Antibiotics per ID Follow cultures Continue current vent settings Pressure support as tolerated once hemodialysis has been completed DVT GI prophylaxis Nutritional support Updated 04/05 cont vent support setting reviewed decrease sedation weaning as tolerated need high ps during weaning hd per nephro M-W-F Antibiotics per ID, actinobacter in sputum. elevate hob hep sq pepcid for prophylaxis discussed w rn Updated 04/04 cont vent support setting reviewed decrease sedation weaning as tolerated hd per nephro Antibiotics per ID, actinobacter in sputum. Cultures so far negative elevate hob hep sq pepcid for prophylaxis discussed w rn Updated 04/03 Patient currently undergoing hemodialysis, on assist control ventilation We have been unable to sedate patient and perform spontaneous breathing trials throughout the day with pressure support Antibiotics per ID, actinobacter in sputum. Cultures so far negative We will continue current support Hemodialysis per nephrology EMILY POSADA MD Apr 07, 2021 09:31
--- NOTE | 2021-04-07 09:38 | PDOC ---
PROGRESS NOTES Date of Service: DATE: 04/07/21 TIME: 09:37 Chief Complaint Chief Complaint impression Covid-19 DKA Hypotension Nausea Vomiting Combined metabolic and respiratory acidosis Acute electrolyte derangementhyponatremia, hypochloremia due to volume depletion Hyperglycemia BOB due to ATN, requiring dialysis Erythrocytosis Candiduria Sacral decubitus ulcer S/P Trach on (03/17/21) Trach cultures positive for [place] albicans and now acinebacter ursungi Patient febrile morning of 04/02. Adding daptomycin per infectious disease. History of Present Illness History of Present Illness Ms Borges is a 46 year old female who presented with nausea/vomiting since 7 AM 02/06/2021 in the morning. Patient stated that her recently tested positive for Covid. She states that he "coughed in my face because he thought it was funny." She reports subjective fevers and chills and nausea/vomiting. Denies sore throat, cough, shortness of breath. No chest pain. Does have some upper abdominal discomfort after vomiting, that she attributes to muscular strain. She was not vaccinated for Covid. 02/08: No acute events overnight. Patient seen and examined bedside and resting comfortably. Continues to complain of nausea not able to tolerate any diet at this time. Saturating 98% on room air. Patient's chart, labs, images were reviewed and discussed with RN 2: Afebrile, currently breathing on room air. Still with complaints of nausea and vomiting x3 today. States that she has history of similar symptoms that have been mildly improved with IV Dilaudid. 02/10: Patient febrile today with T-max 102.2 F. She still admits to nausea, denies any further vomiting. We will continue to provide supportive care and monitor for any recurrent fevers overnight. Patient continues to improve may discharge tomorrow to continue self-isolation. 02/11: Febrile overnight, T-max 102.3 F. She did become hypoxic overnight, currently breathing on 4 L nasal cannula. Also admits to associated vomiting or diarrhea overnight. Discussed with RN, will initiate remdesivir and closely monitor LFTs. IV Decadron, and prophylactic antibiotics. 02/12: Low-grade fever overnight, T-max 99.7. Currently breathing on room air. Will discontinue remdesivir, steroids, and antibiotics; will observe overnight. Still with complaints of vomiting x1 and diarrhea. We will continue to provide supportive care and hope to discharge in the next day or so. 02/13: Afebrile. Still complains of intermittent diarrhea. At the time of my evaluation she was breathing on 6 L nasal cannula; this is somewhat misleading as patient states that she did not feel short of breath but was placed on 6 L by nursing staff overnight. 02/14: Afebrile, currently breathing on 8 L nasal cannula. There has been some misleading documentation, chart oxygen this patient is requiring. Discussed with RN, will resume remdesivir to complete total of 5 days. Continue to monitor LFTs. Will add steroids, Rocephin, and azithromycin. 02/15: Afebrile. Became much more hypoxic overnight, requiring BiPAP. At the time of my evaluation she is still breathing on BiPAP. Consultation was placed to pulmonology. Had discussion with Dr. Myrick about initiating Tocilizumab 02/16: No acute events overnight. Patient becoming more hypoxic saturating 94% and requiring BiPAP. Patient will be transferred to the ICU at this time. For worsening clinical status. Discussed with pulmonary. Patient's chart, labs, images were reviewed and discussed with RN 02/17: Transferred to ICU yesterday afternoon. Seen and examined at bedside she remains on 100% FiO2 on BiPAP. Respirations do appear somewhat labored. Suspect intubation may be impending. We will closely monitor. Increase lisinopril to 20 today. 02/18: Patient required intubation yesterday afternoon. Saw and examined this morning. She is intubated and sedated. Increase insulin today. Covid protocol ordered. Wean as tolerated. Plan of care discussed with bedside nurse. 02/19: Bedside. She remains intubated and sedated. Continue Covid protocol. Wean oxygen sedation as tolerated. Pulmonary following. Plan of care discussed with bedside RN. 02/20: Patient seen and examined at bedside. She remains intubated and sedated. No major clinical changes. Continue current treatment. Pulmonary following. Plan of care discussed with bedside RN. 02/21: Patient seen and examined at bedside. Remains intubated and sedated date and admission clinical changes. Increase free water flushes today due to hypernatremia. Plan of care discussed with bedside nurse. 02/22: Patient seen and examined at bedside. O2 requirement actually improving, although remains intubated. Possible SBT in the coming days. Hypernatremia improving. Plan of care discussed bedside RN. 02/23: Patient remains in ICU on ventilator with FiO2 100%, PEEP 7. Repeat chest x-ray yesterday showed diffuse bilateral pulmonary opacities with no interval improvement. Will discontinue Rocephin and initiate Zosyn. We will continue IV steroids for a full 10-day course 02/24: Afebrile. On vent with FiO2 40%, PEEP 6. Her Coreg has been held due to persistent bradycardia. No documented history of systolic heart failure or previous echocardiogram. Will need to obtain echocardiogram prior to discharge. Continue IV steroids and antibiotics. 02/25: Afebrile. Remains ventilated with FiO2 45%, PEEP 6. Chest x-ray today showed slight improvement of the pulmonary infiltrates, no pneumothorax. Completed 10-day course of IV Decadron. Will initiate slow Solu-Medrol taper. Continue IV Zosyn. Continue supportive care. 02/26: Afebrile. On vent with FiO2 45%, PEEP 6. Completed 10 days of IV Decadron. Will continue IV Zosyn. Continue supportive care. Critical care time 30 minutes spent reviewing charts, reviewing imaging, reviewing labs, discussion with RN. 02/27: Afebrile. On vent with FiO2 45%, PEEP 6. Completed 10 days of steroids and completed remdesivir. Continue with IV Zosyn. CPAP trial yesterday. Continue NG tube and supportive care. 02/28:. Patient remains on vent with FiO2 40%, PEEP 5. Afebrile. Completed steroids and remdesivir. Some noted hypoglycemia overnight, will de-escalate basal insulin. Continue IV Zosyn. Ventilator management per pulmonology. Continue NG tube and supportive care. 03/01: On vent with FiO2 40%, PEEP 5. Afebrile. Completed steroids and remdesivir. Blood glucose well controlled. Continue empiric antibiotics with Zosyn. Ventilator management per pulmonology. Continue NG tube and supportive care. 03/02: No acute events overnight. Patient hypotensive the morning due to oversedation. Will wean off sedation and keep antihypertensive medications on board. Currently saturating 100% on vent settings of 18/450/40/5. Will attempt spontaneous breathing trial today to see how patient does. 03/03: No acute events overnight. Patient saturating 98% on vent settings of 18 /450/40/5. Will defer spontaneous breathing trials to pulmonary at this time. Patient's chart, labs, images were reviewed and discussed with RN 03/04: No acute events overnight. Patient saturating 9 9% on vent settings of 18/450/30/5. Patient currently is unable to tolerate weaning. Per pulmonary. Patient's chart, labs, images were reviewed and discussed with RN 03/05: No acute events overnight. Patient is saturating 97% on vent settings of 18/450/55/5. Her FiO2 needs to be increased due to abnormal ABG with 7.3 /. Patient's chart, labs, images were reviewed and discussed with RN 03/06: No acute events overnight. Patient saturating 94% on vent settings of 18/450/55/5. Chest x-ray showing increase in pulmonary infiltrates. Wound care is consulted for decubitus ulcer patient's chart, labs, images were reviewed and discussed with RN 03/07: No acute events overnight. Patient saturating 94% on vent settings of 20/450/70/8. Patient now heading into renal failure with her creatinine bumped up from 1.5-4.2. Decreased urine output. Plan for hemodialysis today and temporary catheter placement and nephrology is consulted. 03/08: No acute events overnight. Patient did have a nausea vomiting episode and tube feeds were held. KUB repeat shows NG tube still in the stomach. Will resume tube feeds at trickle and advance to goal today. Will start hemodialysis soon. 03/09: Seen on vent 20/450/60%/8. ABG 7.2 WBC 11.4, Hb 7.4, platelets 188, NA 131, K4.9, BUN 48, CR 51, glucose 199, phosphorus 7.9, mag 2.2, AST 265 ALT 219, albumin 1.1. Chest radiograph appears unchanged from prior. Dialysis x1 today 03/10: Afebrile. Seen on vent, 20/450/60/7 with ABG 7.3 . Tolerated dialysis well on 03/09. LFTs similar. 03/11: Afebrile. Seen on vent, sedated. Still requiring Levophed for BP support. WBC 16.7, Hb 8.1, NA 130, ABG 7.3 on 55% FiO2 PEEP 6. On Zosyn and Zyvox Diflucan. Dialysis today 03/12: Afebrile. Still requiring Levophed for BP support sedated with Versed febrile Precedex. WBC 16.1, Hb 8.5, platelets 185, NA 133. Trach plan tentatively 03/17. O2 saturations 93% on 50% FiO2 PEEP 6. ABG 7. On Zosyn and Zyvox Diflucan. 03/13: Afebrile. Still on Levophed for BP support lightly sedated. 7. on 45% FiO2. Plan for dialysis today. On Zosyn and Zyvox Diflucan. More swollen today. 03/14: Afebrile. Weaning down off Levophed. WBC 14.9 NA 132. O2 saturations 92% on 45% FiO2 PEEP 5. Afebrile. O2 saturations 91% on FiO2 45% PEEP 6. Continued on Zosyn and Zyvox Diflucan. Tentative trach planned 03/17/2021 CC time 31 minutes 03/16/21: Patient seen and examined in ICU. Periorbital as well as upper and lower extremity edema noted. OG feed running at 30cc/hr. Still on vent on pressure control with a rate of 24 with 45% FiO2. Patient has rectal bag. Currently she has 98% O2 sat. Currently sedated with Dexmedetomidine, Propofol, Versed, and Fentanyl. Discussed with RN. Chart reviewed. 03/17/21: Patient was seen and examined in the ICU today. Periorbital edema as well as abdominal and mons pubis edema was noted. Patient still on vent on pressure control with Fi02 of 45% plus 6 PEEP. Patient had rectal bag. Currently sedated on Dexmedetomidine, Propofol, Versed, and Fentanyl. Discussed with RN. Chart reviewed. 03/18/21: Patient seen and examined in ICU. On vent via trach that was placed yesterday. Vent settings are Pressure Control of 40 with FiO2 of 45% and 6 PEEP. Trach clean and dry. Orbital swelling still present. Pupils are sluggish. Patient on TPN running at 30cc/hr. Kern to bedside and rectal bag in place. Current O2 sat at 94%. Sedated on Dexmedetomidine, Propofol, Versed, and Fentanyl. Discussed with RN. Chart reviewed. 03/19/21: Patient was seen and examined in the ICU today. Currently on vent via trach on pressure control of 42, rate of 24, FiO2 of 45%, and 6 PEEP. O2 sat is at 97% while patient is being examined. Trach is clean and dry. PICC line is in place on right arm. Periorbital swelling has decreased slightly since examined yesterday. Patient is sedated on Dexmedetomidine, Propofol, Versed, and Fentanyl. Discussed with RN. Chart reviewed. 03/20/21: Patient seen and examined in the ICU. Periorbital edema is slightly decreased since yesterday. O2 sat while being examined was 93%. NG tube in place and running at 30cc/hr. Patient on vent via trach on pressure control of 40 with FiO2 of 45 and rate of 24. Sedated on Dexmedetomidine, Propofol, Versed, and Fentanyl. PICC line in place. Kern to bedside. Rectal bag present. Discussed with RN. Chart reviewed. 03/21/21: Patient was seen and examined in the ICU today. She was semi-sedated.. She was on Dexmedetomidine and Fentanyl. We are holding the Propofol. Her eyes were periodically open but she was not making meaningful eye contact or tracking. On vent via trach with pressure control of 40 and FiO2 at 45. Rate was 24. PEEP was 5. Trach was clean and dry. While being examined, her O2 sat was 94%. Rectal bag and Kern to bedside in place. NG tube in place and feeding at 30cc/hr. IV fluids still running. Levophed has been stopped. Discussed with RN. Chart reviewed. 03/22/21: Patient was seen and examined in the ICU. She was semi-sedated on Propofol and Dexmedetomidine. Her eyes were open but she did not make meaningful eye contact. Her blood pressure was elevated (198/102) while being examined and she had just been given hydralazine to lower it. There are plans to place a PEG tube tomorrow. Currently on vent via trach on pressure control of 40 with FiO2 of 45%, 5 PEEP, and a rate of 24. Current O2 sat is 98%. She is feeding through an NG tube at 30cc/hr. Rectal bag and Kern to bedside present. SCDs on patient for DVT prophylaxis. She did not do her daily dialysis today but the plan is to start back on that tomorrow. Discussed with RN. Chart reviewed. 03/23/2021: Patient remains in ICU on ventilator. FiO2 40%, PEEP 5. Trach cultures positive for [place] albicans and acinebacter ursungi. We will cont inue treatment with IV antibiotics and micafungin, per ID. HD per nephrology. Plans for PEG tube placement today. 30 minutes critical care time was spent reviewing charts, reviewing labs, reviewing imaging, discussion with RN. 03/24/2021: Afebrile. On vent with FiO2 45%, PEEP 5. Had attempted PEG placement per GI yesterday, but unable to locate safe path for PEG; will consider surgical opinion. Once PEG is in place she should be stable for LTAC transfer when accepted. Continue antibiotics, per ID. 30 minutes critical care time was spent reviewing charts, reviewing labs, reviewing imaging, discussion with RN. 03/25/2021: Febrile overnight with T-max 101.5 F. On vent with FiO2 45%, PEEP 5. Surgery has been consulted with tentative plans for laparoscopic versus open gastrostomy placement tomorrow. Trach cultures positive for [place] albicans and now acinebacter ursungi; will continue antibiotic management, per ID. Hemodialysis, per nephrology. Patient needing LTAC placement, but currently without benefits. general farmworker following for discharge planning. Critical care time 30 minutes spent reviewing charts, reviewing labs, reviewing imaging, discussion with RN. 03/26/2021: Febrile today with T-max 100.5 F. Awake on vent with FiO2 45%, PEEP 5. When I ask if she remembers any she nods. G-tube placement scheduled for tomorrow, per general surgery. Chest x-ray today showed slight interval increase in diffuse infiltrate. Continue antibiotic management, per ID. Hemodialysis per nephrology. Reportedly did not tolerate CPAP trial this morning. general farmworker following for LTAC placement. Critical care time 30 minutes spent reviewing charts, reviewing labs, reviewing imaging, discussion with RN. 03/27/2021: On vent with FiO2 45%, PEEP 5. Afebrile today. Continue treatment of acute renal failure requiring HD, per nephrology. Monitor kidney function for recovery. G-tube placement scheduled for today, per general surgery. Likely LTAC placement soon, but this is been a difficult as she is self-pay without benefits; forensic social worker following. Critical care time 30 minutes spent reviewing charts, reviewing labs, reviewing imaging, discussion with RN. 03/28/2021: Afebrile. On vent with FiO2 40%, PEEP 5. Had laparoscopic gastrostomy tube placed yesterday, per general surgery. Continue treatment of acute renal failure requiring HD, per nephrology. Continue IV antibiotics, per ID. Likely LTAC placement soon, but this is been a difficult as she is self-pay without benefits; forensic social worker following. Critical care time 30 minutes spent reviewing charts, reviewing labs, reviewing imaging, discussion with RN. 03/29/2021: Afebrile. On vent with FiO2 45%, PEEP 5. S/P laparoscopic gastrostomy tube; tube feeds running. HD, per nephrology. Continue meropenem, per ID. Anticipate LTAC placement soon now that PEG has being placed; forensic social worker helping in these regards. Critical care time 30 minutes spent reviewing charts, reviewing labs, reviewing imaging, discussion with RN. 03/30 No major events or clinical changes overnight. Patient evaluated at bedside this morning on trach and G-tube. Tolerating these well. Has been working on insurance for patient for placement as she will need long-term care. Guarded prognosis. Plan of care discussed with bedside nurse. 03/31 No major clinical changes. Remains trached. Sedated. Continue current plan. 04/01 No changes. Patient resting in bed when evaluated sedated. is supposed to be working on insurance for placement for the patient. Otherwise no changes. 04/02 Patient febrile overnight, daptomycin added this morning per infectious disease. Otherwise no major clinical changes. Awaiting insurance. Infectious disease, pulmonary and renal following. Plan of care discussed with bedside RN. 04/03 Patient undergoing dialysis today. Evaluated at bedside this morning. otherwise continue current plan. supposed working on insurance. 04/04 No major overnight changes. Continue current plan. 04/05 Patient notably more movement this morning eyes open resting in bed otherwise no major changes. Continue current plan. Insurance pending. 04/06 Patient notably more movement this morning eyes open resting in bed current plan. Insurance pending. Continue daptomycin, renal dosing April 02 F/U Blood culture UA urine culture C. diff PCR negative 32 min cc time 04/07 Patient notably more movement this morning eyes open resting in bed current plan. Insurance pending. Continue daptomycin, renal dosing April 02 F/U Blood culture UA urine culture C. diff PCR negative Abnormal chest x-ray consistent with COVID-19 viral pneumonia. Diabetic ketoacidosis--resolved obesity contributing to hypoxia as well. BOB . hemodialysis started 03/07 DVT GI prophylaxis Nutritional support 34 min cc time Vitals Vitals Vital Signs Date Time Temp Pulse Resp B/P (MAP) Pulse Ox O2 Delivery O2 Flow Rate FiO2 04/07/21 09:00 75 18 135/67 (89) 100 Ventilator 04/07/21 08:00 99.8 99.8 Physical Exam Physical Exam GENERAL: Intubated HEENT: Normocephalic, atraumatic. Anicteric. Slight bilateral periorbital edema. Latter improving Neck right IJ HDC clean Trach + LUNGS: Rhonchi. HEART: S1, S2. No murmurs. ABDOMEN: Obese, soft. Bowel sounds present. Nontender, nondistended. PEG tube in place GENITOURINARY: Kern and fecal tube in place. EXTREMITIES: Edema present no cyanosis. CENTRAL NERVOUS SYSTEM: Intubated. PSYCHIATRIC: Unable to assess. Derm has pressure wounds wound pictures noted in chart. Generalized rash, PICC line February 14, right IJ HDC clean March 07 General: No acute distress, Other (sedated) Heart: Regular rate, Normal S1, Normal S2 Lungs: Clear Abdomen: Soft, Other (G-tube in place) Extremities: Other (ANASARCA) Skin: No rashes, No significant lesion Labs LABS DESC: BLANCA CRAIG MD,EMILY ACHARYA,DANIEL ROLON,COLLIN LOVE,BLANE WU,GERALD Jernigan MD ORDERED: BCULT Procedure Result BLOOD CULTURE Final NO GROWTH AFTER 5 DAYS Laboratory Tests Test 04/06/21 18:43 04/07/21 00:11 04/07/21 05:05 04/07/21 05:50 Glucose (Fingerstick) 193 mg/dL (70-99) 256 mg/dL (70-99) 256 mg/dL (70-99) Sodium Level 137 mmol/L (136-145) Potassium Level 3.5 mmol/L (3.5-5.1) Chloride Level 99 mmol/L (98-107) Carbon Dioxide Level 27 mmol/L (21-32) Anion Gap 11 (6-14) Blood Urea Nitrogen 32 mg/dL (7-20) Creatinine 3.0 mg/dL (0.6-1.0) Estimated GFR (Cockcroft-Gault) 16.9 Glucose Level 276 mg/dL (70-99) Calcium Level 9.4 mg/dL (8.5-10.1) Test 04/07/21 08:00 O2 Saturation 99 % (92-99) Arterial Blood pH 7.47 (7.35-7.45) Arterial Blood pCO2 at Patient Temp 32 mmHg (35-46) Arterial Blood pO2 at Patient Temp 151 mmHg (75-108) Arterial Blood HCO3 23 mmol/L (21-28) Arterial Blood Base Excess -1 mmol/L (-3-3) FiO2 40/vent Assessment and Plan Assessmemt and Plan Problems Medical Problems: (1) Ketoacidosis Status: Acute Comment Review of Relevant I have reviewed the following items mazin (where applicable) has been applied. Labs Laboratory Tests Test 04/05/21 12:01 04/05/21 12:10 04/05/21 17:48 04/05/21 18:25 Glucose (Fingerstick) 268 mg/dL (70-99) 145 mg/dL (70-99) Potassium Level 4.1 mmol/L (3.5-5.1) 4.2 mmol/L (3.5-5.1) Test 04/06/21 00:00 04/06/21 00:01 04/06/21 06:24 04/06/21 06:30 Glucose (Fingerstick) 276 mg/dL (70-99) 182 mg/dL (70-99) Potassium Level 3.6 mmol/L (3.5-5.1) 3.5 mmol/L (3.5-5.1) Sodium Level 142 mmol/L (136-145) Chloride Level 103 mmol/L (98-107) Carbon Dioxide Level 26 mmol/L (21-32) Anion Gap 13 (6-14) Blood Urea Nitrogen 45 mg/dL (7-20) Creatinine 3.9 mg/dL (0.6-1.0) Estimated GFR (Cockcroft-Gault) 12.5 Glucose Level 182 mg/dL (70-99) Calcium Level 9.4 mg/dL (8.5-10.1) Magnesium Level 2.2 mg/dL (1.8-2.4) Hepatitis B Surface Antigen Nonreactive (Nonreactive) Test 04/06/21 08:00 04/06/21 18:43 04/07/21 00:11 04/07/21 05:05 O2 Saturation 99 % (92-99) Arterial Blood pH 7.48 (7.35-7.45) Arterial Blood pCO2 at Patient Temp 32 mmHg (35-46) Arterial Blood pO2 at Patient Temp 144 mmHg (75-108) Arterial Blood HCO3 23 mmol/L (21-28) Arterial Blood Base Excess 0 mmol/L (-3-3) FiO2 40 Glucose (Fingerstick) 193 mg/dL (70-99) 256 mg/dL (70-99) Sodium Level 137 mmol/L (136-145) Potassium Level 3.5 mmol/L (3.5-5.1) Chloride Level 99 mmol/L (98-107) Carbon Dioxide Level 27 mmol/L (21-32) Anion Gap 11 (6-14) Blood Urea Nitrogen 32 mg/dL (7-20) Creatinine 3.0 mg/dL (0.6-1.0) Estimated GFR (Cockcroft-Gault) 16.9 Glucose Level 276 mg/dL (70-99) Calcium Level 9.4 mg/dL (8.5-10.1) Test 04/07/21 05:50 04/07/21 08:00 Glucose (Fingerstick) 256 mg/dL (70-99) O2 Saturation 99 % (92-99) Arterial Blood pH 7.47 (7.35-7.45) Arterial Blood pCO2 at Patient Temp 32 mmHg (35-46) Arterial Blood pO2 at Patient Temp 151 mmHg (75-108) Arterial Blood HCO3 23 mmol/L (21-28) Arterial Blood Base Excess -1 mmol/L (-3-3) FiO2 40/vent Laboratory Tests Test 04/06/21 18:43 04/07/21 00:11 04/07/21 05:05 04/07/21 05:50 Glucose (Fingerstick) 193 mg/dL (70-99) 256 mg/dL (70-99) 256 mg/dL (70-99) Sodium Level 137 mmol/L (136-145) Potassium Level 3.5 mmol/L (3.5-5.1) Chloride Level 99 mmol/L (98-107) Carbon Dioxide Level 27 mmol/L (21-32) Anion Gap 11 (6-14) Blood Urea Nitrogen 32 mg/dL (7-20) Creatinine 3.0 mg/dL (0.6-1.0) Estimated GFR (Cockcroft-Gault) 16.9 Glucose Level 276 mg/dL (70-99) Calcium Level 9.4 mg/dL (8.5-10.1) Test 04/07/21 08:00 O2 Saturation 99 % (92-99) Arterial Blood pH 7.47 (7.35-7.45) Arterial Blood pCO2 at Patient Temp 32 mmHg (35-46) Arterial Blood pO2 at Patient Temp 151 mmHg (75-108) Arterial Blood HCO3 23 mmol/L (21-28) Arterial Blood Base Excess -1 mmol/L (-3-3) FiO2 40/vent Microbiology 04/02/21 Urine Culture - Final, Complete 04/02/21 Blood Culture - Preliminary, Resulted NO GROWTH AFTER 4 DAYS 03/16/21 Gram Stain Evaluation - Final, Complete 03/16/21 Respiratory Culture - Final, Complete 03/16/21 Antimicrobic Susceptibility - Final, Complete Medications Current Medications Ondansetron HCl (Zofran Odt) 4 mg 1X ONCE PO Last administered on 02/06/21at 23:57; Start 02/06/21 at 23:30; Stop 02/06/21 at 23:31; Status DC Haloperidol Lactate (Haldol Inj) 2.5 mg 1X ONCE IM ; Start 02/07/21 at 02:30; Stop 02/07/21 at 03:56; Status DC Sodium Chloride 1,000 ml @ 1,000 mls/hr 1X ONCE IV Last administered on 02/07/21at 03:41; Start 02/07/21 at 02:30; Stop 02/07/21 at 03:29; Status DC Hydromorphone HCl (Dilaudid) 1 mg 1X ONCE IVP Last administered on 02/07/21at 04:13; Start 02/07/21 at 04:30; Stop 02/07/21 at 04:31; Status DC Sodium Chloride 1,000 ml @ 1,000 mls/hr 1X ONCE IV Last administered on 02/07/21at 10:39; Start 02/07/21 at 06:30; Stop 02/07/21 at 07:29; Status DC Insulin Human Regular 100 unit/ Sodium Chloride 101 ml @ 0 mls/hr CONT PRN PRN IV PER PROTOCOL; Start 02/07/21 at 06:00; Stop 02/07/21 at 16:54; Status DC Potassium Chloride/Water 100 ml @ 100 mls/hr PRN Q1HR PRN IV SEE COMMENTS; Start 02/07/21 at 06:00; Stop 02/07/21 at 16:54; Status DC Potassium Chloride/Water 100 ml @ 100 mls/hr PRN Q1HR PRN IV SEE COMMENTS; Start 02/07/21 at 06:00; Stop 02/07/21 at 16:54; Status DC Potassium Chloride/Water 100 ml @ 100 mls/hr PRN Q1HR PRN IV SEE COMMENTS; Start 02/07/21 at 06:00; Stop 02/07/21 at 16:54; Status DC Insulin Human Regular 100 ml @ 10 mls/hr 1X ONCE IV Last administered on 02/07/21at 09:31; Start 02/07/21 at 06:30; Stop 02/07/21 at 16:54; Status DC Sennosides (Senna) 17.2 mg PRN BID PRN PO CONSTIPATION Last administered on 02/22/21at 08:29; Start 02/07/21 at 08:45 Docusate Sodium (Colace) 100 mg PRN DAILY PRN PO HARD STOOLS; Start 02/07/21 at 08:45; Stop 02/23/21 at 10:47; Status DC Ondansetron HCl (Zofran) 4 mg PRN Q6HRS PRN IVP NAUSEA/VOMITING 1ST CHOICE Last administered on 02/16/21at 15:58; Start 02/07/21 at 08:45 Dextrose (Dextrose 50%-Water Syringe) 12.5 gm PRN Q15MIN PRN IV SEE COMMENTS; Start 02/07/21 at 08:45; Stop 02/08/21 at 16:56; Status DC Sodium Chloride 1,000 ml @ 200 mls/hr Q5H IV Last administered on 02/08/21at 04:05; Start 02/07/21 at 08:45; Stop 02/08/21 at 08:44; Status DC Acetaminophen (Tylenol) 650 mg PRN Q4HRS PRN PO FEVER > 101 Last administered on 02/13/21at 21:35; Start 02/07/21 at 08:45; Stop 02/17/21 at 10:45; Status DC Prochlorperazine Edisylate (Compazine) 10 mg PRN Q6HRS PRN IV NAUSEA/VOMITING 2ND CHOICE Last administered on 02/12/21at 10:35; Start 02/07/21 at 08:45 Insulin Glargine (Lantus Syringe) 5 unit BID SQ Last administered on 02/08/21at 10:24; Start 02/07/21 at 17:00; Stop 02/08/21 at 20:11; Status DC Insulin Human Lispro (HumaLOG) 0-7 UNITS Q4HRS SQ Last administered on 02/08/21at 00:00; Start 02/07/21 at 20:00; Stop 02/08/21 at 00:50; Status DC Dextrose (Dextrose 50%-Water Syringe) 12.5 gm PRN Q15MIN PRN IV SEE COMMENTS; Start 02/07/21 at 17:00; Stop 02/17/21 at 10:45; Status DC Ondansetron HCl (Zofran) 4 mg 1X ONCE IVP Last administered on 02/07/21at 20:06; Start 02/07/21 at 20:00; Stop 02/07/21 at 20:07; Status DC Insulin Human Lispro (HumaLOG) 0-9 UNITS Q4HRS SQ Last administered on 02/13/21at 17:36; Start 02/08/21 at 04:00; Stop 02/13/21 at 21:44; Status DC Metoclopramide HCl (Reglan Vial) 10 mg PRN Q6HRS PRN IVP NAUSEA/VOMITING 3RD CHOICE Last administered on 02/12/21at 15:51; Start 02/08/21 at 00:45 Labetalol HCl (Normodyne Iv Push) 10 mg PRN Q2HR PRN IVP HYPERTENSION, 1st choice Last administered on 03/26/21at 21:14; Start 02/08/21 at 00:45 Acetaminophen (Tylenol Supp) 650 mg PRN Q6HRS PRN [place] FEVER > 101; Start 02/08/21 at 01:45; Stop 02/17/21 at 10:45; Status DC Lorazepam (Ativan Inj) 0.5 mg PRN Q6HRS PRN IVP ANXIETY / AGITATION Last administered on 04/01/21at 15:32; Start 02/08/21 at 10:00 Enalaprilat (Vasotec Inj) 0.625 mg Q6HRS IVP Last administered on 02/09/21at 13:42; Start 02/08/21 at 16:15; Stop 02/09/21 at 16:01; Status DC Insulin Glargine (Lantus Syringe) 15 unit BID SQ Last administered on 02/17/21at 20:29; Start 02/08/21 at 21:00; Stop 02/18/21 at 08:09; Status DC Insulin Human Lispro (HumaLOG) 3 units TIDAC SQ Last administered on 02/16/21at 09:10; Start 02/09/21 at 07:30; Stop 02/16/21 at 23:51; Status DC Carvedilol (Coreg) 6.25 mg BIDWMEALS PO Last administered on 02/23/21at 08:06; Start 02/08/21 at 20:30; Stop 02/23/21 at 15:50; Status DC Atorvastatin Calcium (Lipitor) 40 mg HS PO Last administered on 04/06/21at 21:12; Start 02/08/21 at 21:00 Lisinopril (Prinivil) 5 mg DAILY PO Last administered on 02/09/21at 09:48; Start 02/09/21 at 09:00; Stop 02/09/21 at 13:04; Status DC Sodium Chloride 1,000 ml @ 100 mls/hr Q10H IV Last administered on 02/16/21at 12:15; Start 02/09/21 at 07:00; Stop 02/17/21 at 15:37; Status DC Enoxaparin Sodium (Lovenox Per Pharmacy Prophylaxis Dosing) 1 each PRN DAILY PRN MC SEE COMMENTS; Start 02/09/21 at 06:45; Stop 03/12/21 at 15:38; Status DC Enoxaparin Sodium (Lovenox 40mg Syringe) 40 mg BID SQ Last administered on 03/08/21at 08:26; Start 02/09/21 at 09:00; Stop 03/08/21 at 13:56; Status DC Lisinopril (Prinivil) 10 mg DAILY PO Last administered on 02/16/21at 09:06; Start 02/10/21 at 09:00; Stop 02/17/21 at 08:29; Status DC Hydromorphone HCl (Dilaudid) 2 mg PRN Q6HRS PRN IVP PAIN Last administered on 02/15/21at 22:00; Start 02/09/21 at 17:15; Stop 02/21/21 at 05:27; Status DC Benzonatate (Tessalon Perle) 100 mg [id number] PO Last administered on 02/16/21at 22:07; Start 02/10/21 at 23:30; Stop 02/17/21 at 10:45; Status DC Guaifenesin (Robitussin Dm) 10 ml PRN Q6HRS PRN PO COUGH Last administered on 02/16/21at 09:06; Start 02/10/21 at 23:30 Remdesivir 200 mg/ Sodium Chloride 210 ml @ 210 mls/hr 1X ONCE IV Last administered on 02/11/21at 14:33; Start 02/11/21 at 13:00; Stop 02/12/21 at 11:55; Status DC Remdesivir 100 mg/ Sodium Chloride 230 ml @ 460 mls/hr Q24H IV ; Start 02/12/21 at 13:00; Stop 02/12/21 at 11:55; Status DC Hydralazine HCl (Apresoline Inj) 10 mg PRN Q4HRS PRN IVP ELEVATED BP, 2nd choice Last administered on 04/06/21at 02:45; Start 02/11/21 at 12:15 Ceftriaxone Sodium (Rocephin) 1 gm Q24H IVP Last administered on 02/11/21at 12:55; Start 02/11/21 at 12:30; Stop 02/12/21 at 11:55; Status DC Dexamethasone Sodium Phosphate (Decadron) 6 mg DAILY IVP Last administered on 02/12/21at 09:34; Start 02/11/21 at 13:00; Stop 02/12/21 at 11:55; Status DC Potassium Chloride (Klor-Con) 40 meq 1X ONCE PO Last administered on 02/13/21at 11:11; Start 02/13/21 at 10:30; Stop 02/13/21 at 10:47; Status DC Potassium Chloride (Klor-Con) 40 meq 1X ONCE PO Last administered on 02/13/21at 13:21; Start 02/13/21 at 12:00; Stop 02/13/21 at 12:01; Status DC Insulin Human Lispro (HumaLOG) 0-9 UNITS QIDACHS SQ Last administered on 02/15/21at 22:01; Start 02/14/21 at 07:30; Stop 02/16/21 at 23:51; Status DC Remdesivir 100 mg/ Sodium Chloride 230 ml @ 460 mls/hr Q24H IV Last administered on 02/18/21at 11:52; Start 02/15/21 at 12:00; Stop 02/18/21 at 12:29; Status DC Dexamethasone Sodium Phosphate (Decadron) 6 mg DAILY IVP Last administered on 02/24/21at 08:12; Start 02/15/21 at 09:00; Stop 02/25/21 at 06:41; Status DC Dexamethasone Sodium Phosphate (Decadron) 6 mg 1X ONCE IVP ; Start 02/14/21 at 12:45; Stop 02/14/21 at 12:46; Status DC Ceftriaxone Sodium (Rocephin) 1 gm Q24H IVP Last administered on 02/22/21at 12:42; Start 02/14/21 at 13:00; Stop 02/23/21 at 07:34; Status DC Azithromycin 250 mg/Sodium Chloride 250 ml @ 250 mls/hr Q24H IV Last administered on 02/18/21at 11:51; Start 02/14/21 at 13:30; Stop 02/18/21 at 14:29; Status DC Dexamethasone Sodium Phosphate (Decadron) 6 mg 1X ONCE IVP Last administered on 02/14/21at 18:17; Start 02/14/21 at 17:15; Stop 02/14/21 at 17:16; Status DC Alteplase, Recombinant (Cathflo For Central Catheter Clearance) 1 mg 1X ONCE INT CAT Last administered on 02/16/21at 08:41; Start 02/16/21 at 08:00; Stop 02/16/21 at 08:01; Status DC Dexmedetomidine HCl 400 mcg/ Sodium Chloride 100 ml @ 0 mls/hr CONT PRN IV PER PROTOCOL Last administered on 02/17/21at 20:27; Start 02/16/21 at 12:00; Stop 02/27/21 at 09:37; Status DC Sodium Chloride 500 ml @ 500 mls/hr 1X PRN PRN IV SEE COMMENTS; Start 02/16/21 at 12:00 Atropine Sulfate (ATROPINE 0.5mg SYRINGE) 0.5 mg PRN Q5MIN PRN IV SEE COMMENTS; Start 02/16/21 at 12:00 Lactobacillus Rhamnosus (Culturelle) 1 cap BID PO Last administered on 02/16/21at 22:02; Start 02/16/21 at 21:00; Stop 02/17/21 at 10:45; Status DC Famotidine (Pepcid Vial) 20 mg BID IVP Last administered on 03/09/21at 09:27; Start 02/16/21 at 21:00; Stop 03/09/21 at 10:41; Status DC Furosemide (Lasix) 20 mg 1X ONCE IVP Last administered on 02/16/21at 18:38; Start 02/16/21 at 18:30; Stop 02/16/21 at 18:34; Status DC Furosemide (Lasix) 20 mg 1X ONCE IVP Last administered on 02/16/21at 22:18; Start 02/16/21 at 22:15; Stop 02/16/21 at 22:16; Status DC Insulin Human Lispro (HumaLOG) 3 units Q6HRS SQ Last administered on 02/18/21at 05:40; Start 02/17/21 at 00:00; Stop 02/18/21 at 08:09; Status DC Insulin Human Lispro (HumaLOG) 0-9 UNITS Q6HRS SQ Last administered on 04/07/21at 05:52; Start 02/17/21 at 00:00 Lisinopril (Prinivil) 20 mg DAILY PO Last administered on 02/27/21at 09:10; Start 02/17/21 at 09:00; Stop 03/09/21 at 10:43; Status DC Fentanyl Citrate 30 ml @ 0 mls/hr CONT PRN IV SEE PROTOCOL Last administered on 03/15/21at 16:08; Start 02/17/21 at 10:00; Stop 03/15/21 at 23:00; Status DC Propofol 100 ml @ 0 mls/hr CONT PRN IV PER PROTOCOL Last administered on 04/07/21at 03:58; Start 02/17/21 at 10:00 Glycerin/ Hypromellose/ Polyethylene (Artificial Tears) 1 drop PRN Q1HR PRN OU DRY EYE Last administered on 04/05/21at 08:02; Start 02/17/21 at 10:00 Midazolam HCl 100 ml @ 0 mls/hr CONT PRN IV SEE PROTOCOL Last administered on 03/20/21at 17:18; Start 02/17/21 at 10:00 Succinylcholine Chloride (Anectine) 200 mg STK-MED ONCE .ROUTE ; Start 02/17/21 at 09:58; Stop 02/17/21 at 09:58; Status DC Acetaminophen (Tylenol) 650 mg PRN Q6HRS PRN PEG MILD PAIN / TEMP > 100.3'F Last administered on 04/06/21at 21:12; Start 02/17/21 at 10:45 Insulin Glargine (Lantus Syringe) 20 unit BID SQ Last administered on 02/18/21at 20:54; Start 02/18/21 at 09:00; Stop 02/19/21 at 07:47; Status DC Insulin Human Lispro (HumaLOG) 5 units Q6HRS SQ Last administered on 02/19/21at 06:23; Start 02/18/21 at 12:00; Stop 02/19/21 at 07:47; Status DC Insulin Glargine (Lantus Syringe) 25 unit BID SQ Last administered on 02/27/21at 20:42; Start 02/19/21 at 09:00; Stop 02/28/21 at 09:34; Status DC Insulin Human Lispro (HumaLOG) 8 units Q6HRS SQ Last administered on 02/19/21at 11:33; Start 02/19/21 at 12:00; Stop 02/19/21 at 12:32; Status DC Insulin Human Lispro (HumaLOG) 10 units Q6HRS SQ Last administered on 02/20/21at 06:38; Start 02/19/21 at 18:00; Stop 02/20/21 at 08:14; Status DC Insulin Human Lispro (HumaLOG) 12 units Q6HRS SQ Last administered on 02/27/21at 05:41; Start 02/20/21 at 12:00; Stop 02/28/21 at 15:38; Status DC Piperacillin Sod/ Tazobactam Sod (Zosyn Per Pharmacy) 1 each PRN DAILY PRN MC SEE COMMENTS; Start 02/23/21 at 07:45; Stop 03/17/21 at 10:04; Status DC Piperacillin Sod/ Tazobactam Sod 4.5 gm/Sodium Chloride 100 ml @ 200 mls/hr Q6HRS IV Last administered on 03/07/21at 06:12; Start 02/23/21 at 08:00; Stop 03/07/21 at 08:18; Status DC Docusate Sodium (Colace Solution) 100 mg BID PO Last administered on 04/06/21at 21:12; Start 02/23/21 at 12:00 Amlodipine Besylate (Norvasc) 5 mg DAILY NG Last administered on 02/27/21at 09:10; Start 02/24/21 at 09:00; Stop 03/09/21 at 10:43; Status DC Methylprednisolone Sodium Succinate (SOLU-Medrol 125MG VIAL) 80 mg Q8HRS IV Last administered on 02/26/21at 05:52; Start 02/25/21 at 09:00; Stop 02/26/21 at 07:09; Status DC Succinylcholine Chloride (Anectine) 200 mg STK-MED ONCE .ROUTE ; Start 02/17/21 at 10:00; Stop 02/25/21 at 08:40; Status DC Dexamethasone Sodium Phosphate (Decadron) 4 mg 1X ONCE IVP ; Start 02/26/21 at 10:00; Stop 02/26/21 at 07:15; Status DC Dexamethasone Sodium Phosphate (Decadron) 2 mg 1X ONCE IVP ; Start 02/27/21 at 09:00; Stop 02/26/21 at 07:15; Status DC Dexmedetomidine HCl 400 mcg/ Sodium Chloride 100 ml @ 0 mls/hr CONT PRN IV PER PROTOCOL Last administered on 04/07/21at 08:06; Start 02/27/21 at 09:45 Sodium Chloride 500 ml @ 500 mls/hr 1X PRN PRN IV SEE COMMENTS; Start 02/27/21 at 09:45; Status Cancel Alteplase, Recombinant (Cathflo) 2 mg 1X ONCE INT CAT Last administered on 02/27/21at 11:20; Start 02/27/21 at 11:00; Stop 02/27/21 at 11:01; Status DC Alteplase, Recombinant (Cathflo For Central Catheter Clearance) 1 mg 1X ONCE INT CAT Last administered on 02/27/21at 15:18; Start 02/27/21 at 14:30; Stop 02/27/21 at 14:36; Status DC Alteplase, Recombinant (Cathflo For Central Catheter Clearance) 1 mg 1X ONCE INT CAT Last administered on 02/27/21at 15:19; Start 02/27/21 at 14:30; Stop 02/27/21 at 14:36; Status DC Dextrose (Dextrose 50%-Water Syringe) 25 gm STK-MED ONCE IV ; Start 02/27/21 at 23:48; Stop 02/27/21 at 23:48; Status DC Dextrose (Dextrose 50%-Water Syringe) 25 gm 1X ONCE IV Last administered on 02/27/21at 23:55; Start 02/28/21 at 00:00; Stop 02/28/21 at 00:01; Status DC Insulin Glargine (Lantus Syringe) 20 unit BID SQ Last administered on 02/28/21at 21:06; Start 02/28/21 at 10:00; Stop 03/01/21 at 14:18; Status DC Dextrose (Dextrose 50%-Water Syringe) 12.5 gm PRN Q15MIN PRN IV SEE COMMENTS Last administered on 03/01/21at 12:55; Start 03/01/21 at 13:00 Insulin Glargine (Lantus Syringe) 15 unit QHS SQ Last administered on 03/05/21at 21:26; Start 03/01/21 at 21:00; Stop 03/06/21 at 07:17; Status DC Nystatin (Nystop) 1 reji BID TP Last administered on 04/07/21at 08:11; Start 03/02/21 at 21:00 Vancomycin HCl 1 gm/Sodium Chloride 250 ml @ 250 mls/hr Q12H IV ; Start 03/04/21 at 20:00; Status UNV Vancomycin HCl 2 gm/Sodium Chloride 500 ml @ 250 mls/hr 1X ONCE IV Last administered on 03/04/21at 19:26; Start 03/04/21 at 19:00; Stop 03/04/21 at 20:59; Status DC Vancomycin HCl (Vanco Per Pharmacy) 1 each PRN DAILY PRN MC SEE COMMENTS Last administered on 03/04/21at 19:47; Start 03/04/21 at 18:30; Stop 03/05/21 at 08:59; Status DC Vancomycin HCl 1.5 gm/Sodium Chloride 500 ml @ 250 mls/hr Q12H IV ; Start 03/05/21 at 07:30; Stop 03/05/21 at 08:58; Status DC Vancomycin HCl (Vancomycin Trough Level) 1 each 1X ONCE MC ; Start 03/06/21 at 07:00; Stop 03/06/21 at 07:01; Status Cancel Linezolid (Zyvox) 600 mg BID PO Last administered on 03/11/21at 20:33; Start 03/05/21 at 09:00; Stop 03/12/21 at 07:00; Status DC Insulin Glargine (Lantus Syringe) 15 unit BID SQ ; Start 03/06/21 at 09:00; Stop 03/06/21 at 07:25; Status DC Insulin Glargine (Lantus Syringe) 5 unit BID SQ Last administered on 04/07/21at 09:28; Start 03/06/21 at 09:00 Norepinephrine Bitartrate 8 mg/ Dextrose 258 ml @ 21.711 mls/ hr CONT PRN IV PER PROTOCOL Last administered on 03/19/21at 18:45; Start 03/06/21 at 13:45 Vecuronium [place] (Norcuron Bolus) 6 mg PRN Q2HRS PRN IV VENTILATOR COMPLIANCE Last administered on 03/16/21at 10:16; Start 03/06/21 at 14:30 Sodium Chloride 1,000 ml @ 1,000 mls/hr 1X ONCE IV Last administered on 03/06/21at 16:00; Start 03/06/21 at 16:00; Stop 03/06/21 at 19:16; Status DC Sodium Chloride 1,000 ml @ 1,000 mls/hr 1X ONCE IV Last administered on 03/06/21at 20:37; Start 03/06/21 at 19:15; Stop 03/06/21 at 20:14; Status DC Piperacillin Sod/ Tazobactam Sod 2.25 gm/Sodium Chloride 50 ml @ 100 mls/hr Q8HRS IV Last administered on 03/17/21at 05:58; Start 03/07/21 at 14:00; Stop 03/17/21 at 08:03; Status DC Fluconazole/ Sodium Chloride 100 ml @ 100 mls/hr Q24H IV Last administered on 03/16/21at 08:29; Start 03/07/21 at 09:00; Stop 03/17/21 at 08:03; Status DC Lidocaine HCl (Buffered Lidocaine 1%) 6 ml 1X ONCE INJ Last administered on 03/07/21at 14:10; Start 03/07/21 at 13:15; Stop 03/07/21 at 13:16; Status DC Lidocaine HCl (Buffered Lidocaine 1%) 3 ml STK-MED ONCE .ROUTE ; Start 03/07/21 at 13:25; Stop 03/07/21 at 13:25; Status DC Info (PHARMACY MONITORING -- do not chart) 1 each PRN DAILY PRN MC SEE COMMENTS; Start 03/07/21 at 20:45; Stop 03/10/21 at 10:23; Status DC Enoxaparin Sodium (Lovenox 30mg Syringe) 30 mg Q24H SQ Last administered on 03/12/21at 09:04; Start 03/08/21 at 09:00; Stop 03/12/21 at 15:38; Status DC Famotidine (Pepcid Vial) 20 mg DAILY IVP Last administered on 04/07/21at 08:06; Start 03/10/21 at 09:00 Sodium Chloride 1,000 ml @ 1,000 mls/hr Q1H PRN IV hypotension; Start 03/09/21 at 18:15; Stop 03/10/21 at 00:14; Status DC Albumin Human 200 ml @ 200 mls/hr 1X PRN PRN IV Hypotension Last administered on 03/09/21at 19:40; Start 03/09/21 at 18:15; Stop 03/10/21 at 00:14; Status DC Sodium Chloride 1,000 ml @ 400 mls/hr Q2H30M PRN IV PATENCY; Start 03/09/21 at 18:15; Stop 03/10/21 at 06:14; Status DC Info (PHARMACY MONITORING -- do not chart) 1 each PRN DAILY PRN MC SEE COMMENTS; Start 03/09/21 at 18:15; Stop 03/10/21 at 10:23; Status DC Info (PHARMACY MONITORING -- do not chart) 1 each PRN DAILY PRN MC SEE COMMENTS; Start 03/09/21 at 18:15; Status Cancel Vitamin A/Vitamin D (Vitamin A & D Ointment) 1 reji PRN Q1HR PRN TP SKIN PROTECTION Last administered on 03/20/21at 09:34; Start 03/10/21 at 01:45 Sodium Chloride 1,000 ml @ 1,000 mls/hr Q1H PRN IV hypotension; Start 03/11/21 at 08:15; Stop 03/11/21 at 14:14; Status DC Albumin Human 200 ml @ 200 mls/hr 1X PRN PRN IV Hypotension; Start 03/11/21 at 08:15; Stop 03/11/21 at 14:14; Status DC Sodium Chloride (Normal Saline Flush) 10 ml 1X PRN PRN IV AP catheter pack; Start 03/11/21 at 08:15; Stop 03/12/21 at 08:14; Status DC Sodium Chloride (Normal Saline Flush) 10 ml 1X PRN PRN IV CUSTOMER ASSISTANCE ASSOCIATE catheter pack; Start 03/11/21 at 08:15; Stop 03/12/21 at 08:14; Status DC Sodium Chloride 1,000 ml @ 400 mls/hr Q2H30M PRN IV PATENCY; Start 03/11/21 at 08:15; Stop 03/11/21 at 20:14; Status DC Info (PHARMACY MONITORING -- do not chart) 1 each PRN DAILY PRN MC SEE COMMENTS; Start 03/11/21 at 08:15; Status UNV Info (PHARMACY MONITORING -- do not chart) 1 each PRN DAILY PRN MC SEE COMMENTS; Start 03/11/21 at 08:15; Status Cancel Heparin Sodium (Porcine) (Heparin Sodium) 5,000 unit Q8HRS SQ Last administered on 04/07/21at 05:53; Start 03/13/21 at 06:00 Multivitamins/ Minerals Therapeutic (Centrum Multivit-Mineral Liq) 5 ml DAILY PEG Last administered on 04/07/21at 08:07; Start 03/14/21 at 09:00 Info (PHARMACY MONITORING -- do not chart) 1 each PRN DAILY PRN MC SEE COMMENTS; Start 03/13/21 at 17:00; Status Cancel Piperacillin Sod/ Tazobactam Sod 3.375 gm/Sodium Chloride 50 ml @ 100 mls/hr Q6HRS IV ; Start 03/14/21 at 18:00; Status Cancel Fentanyl Citrate (Fentanyl 2ml Vial) 25 mcg PRN Q5MIN PRN IVP MILD PAIN 1-3; Start 03/17/21 at 06:00; Stop 03/17/21 at 19:00; Status DC Fentanyl Citrate (Fentanyl 2ml Vial) 50 mcg PRN Q5MIN PRN IVP MODERATE PAIN 4- 6; Start 03/17/21 at 06:00; Stop 03/17/21 at 19:00; Status DC Morphine Sulfate (Morphine Sulfate) 1 mg PRN Q10MIN PRN IVP SEVERE PAIN 7-10; Start 03/17/21 at 06:00; Stop 03/17/21 at 19:00; Status DC Ringer's Solution 1,000 ml @ 30 mls/hr Q24H IV ; Start 03/17/21 at 06:00; Stop 03/17/21 at 17:59; Status DC Hydromorphone HCl (Dilaudid) 0.5 mg PRN Q10MIN PRN IVP SEVERE PAIN 7-10, 2nd CHOICE; Start 03/17/21 at 06:00; Stop 03/17/21 at 19:00; Status DC Fentanyl Citrate 55 ml @ 0 mls/hr CONT PRN IV SEE PROTOCOL Last administered on 04/04/21at 19:36; Start 03/15/21 at 16:30 Fentanyl Citrate 55 ml @ 2 mls/hr CONT PRN IV SEE PROTOCOL; Start 03/15/21 at 21:45; Stop 03/15/21 at 21:34; Status DC Linezolid/Dextrose 300 ml @ 300 mls/hr Q12HR IV Last administered on 03/17/21at 21:44; Start 03/16/21 at 10:00; Stop 03/18/21 at 07:37; Status DC Sodium Chloride 1,000 ml @ 1,000 mls/hr Q1H PRN IV hypotension; Start 03/16/21 at 12:45; Stop 03/16/21 at 18:44; Status DC Albumin Human 200 ml @ 200 mls/hr 1X PRN PRN IV Hypotension; Start 03/16/21 at 12:45; Stop 03/16/21 at 18:44; Status DC Sodium Chloride (Normal Saline Flush) 10 ml 1X PRN PRN IV AP catheter pack; Start 03/16/21 at 12:45; Stop 03/17/21 at 12:44; Status DC Sodium Chloride (Normal Saline Flush) 10 ml 1X PRN PRN IV CUSTOMER ASSISTANCE ASSOCIATE catheter pack; Start 03/16/21 at 12:45; Stop 03/17/21 at 12:44; Status DC Sodium Chloride 1,000 ml @ 400 mls/hr Q2H30M PRN IV PATENCY; Start 03/16/21 at 12:45; Stop 03/17/21 at 00:44; Status DC Info (PHARMACY MONITORING -- do not chart) 1 each PRN DAILY PRN MC SEE COMMENTS; Start 03/16/21 at 12:45; Status UNV Info (PHARMACY MONITORING -- do not chart) 1 each PRN DAILY PRN MC SEE COMMENTS; Start 03/16/21 at 12:45; Stop 03/18/21 at 10:14; Status DC Rocuronium [place] (Zemuron) 50 mg STK-MED ONCE .ROUTE ; Start 03/17/21 at 10:09; Stop 03/17/21 at 10:09; Status DC Bupivacaine HCl/ Epinephrine Bitart (Sensorcain-Epi 0.5%-1:[id number] Mpf) 30 ml STK-MED ONCE .ROUTE ; Start 03/17/21 at 10:47; Stop 03/17/21 at 10:47; Status DC Cellulose (Surgicel Fibrillar 1x2) 1 each STK-MED ONCE .ROUTE Last administered on 03/17/21at 11:56; Start 03/17/21 at 10:47; Stop 03/17/21 at 10:47; Status DC Phenylephrine HCl (PHENYLEPHRINE in 0.9% NACL PF) 1 mg STK-MED ONCE IV ; Start 03/17/21 at 10:56; Stop 03/17/21 at 10:56; Status DC Ephedrine Sulfate (ePHEDrine PF IN SALINE SYRINGE) 50 mg STK-MED ONCE IV ; Start 03/17/21 at 10:56; Stop 03/17/21 at 10:56; Status DC Rocuronium [place] (Zemuron) 50 mg STK-MED ONCE .ROUTE ; Start 03/17/21 at 10:56; Stop 03/17/21 at 10:56; Status DC Albuterol Sulfate (Ventolin Hfa) 60 puff STK-MED ONCE INH ; Start 03/17/21 at 11:29; Stop 03/17/21 at 11:29; Status DC Rocuronium [place] (Zemuron) 50 mg STK-MED ONCE .ROUTE ; Start 03/17/21 at 11:39; Stop 03/17/21 at 11:39; Status DC Sevoflurane (Ultane) 30 ml STK-MED ONCE IH ; Start 03/17/21 at 12:20; Stop 03/17/21 at 12:20; Status DC Sodium Chloride 1,000 ml @ 1,000 mls/hr Q1H PRN IV hypotension; Start 03/17/21 at 13:30; Stop 03/17/21 at 19:29; Status DC Albumin Human 200 ml @ 200 mls/hr 1X PRN PRN IV Hypotension; Start 03/17/21 at 13:30; Stop 03/17/21 at 19:29; Status DC Acetaminophen (Tylenol) 500 mg 1X PRN PRN PO MILD PAIN / TEMP > 100.3'F; Start 03/17/21 at 13:30; Stop 03/18/21 at 13:29; Status DC Diphenhydramine HCl (Benadryl) 25 mg 1X PRN PRN IV ITCHING; Start 03/17/21 at 13:30; Stop 03/18/21 at 13:29; Status DC Diphenhydramine HCl (Benadryl) 25 mg 1X PRN PRN IV ITCHING; Start 03/17/21 at 13:30; Stop 03/18/21 at 13:29; Status DC Sodium Chloride 1,000 ml @ 400 mls/hr Q2H30M PRN IV PATENCY; Start 03/17/21 at 13:30; Stop 03/18/21 at 01:29; Status DC Info (PHARMACY MONITORING -- do not chart) 1 each PRN DAILY PRN MC SEE COMMENTS; Start 03/17/21 at 13:30; Status UNV Info (PHARMACY MONITORING -- do not chart) 1 each PRN DAILY PRN MC SEE COMMENTS; Start 03/17/21 at 13:30; Status Cancel Albumin Human 100 ml @ 100 mls/hr 1X ONCE IV Last administered on 03/17/21at 15:40; Start 03/17/21 at 14:15; Stop 03/17/21 at 15:19; Status DC Albumin Human 50 ml @ 50 mls/hr 1X ONCE IV ; Start 03/17/21 at 14:15; Stop 03/17/21 at 15:08; Status DC Albumin Human 100 ml @ 100 mls/hr 1X ONCE IV Last administered on 03/17/21at 15:41; Start 03/17/21 at 14:15; Stop 03/17/21 at 15:19; Status DC Multi-Ingred Cream/Lotion/Oil/ Oint (Artificial Tears Eye Ointment) 1 reji PRN Q1HR PRN OU DRY EYE Last administered on 03/20/21at 15:55; Start 03/17/21 at 17:30 Sodium Chloride 1,000 ml @ 1,000 mls/hr Q1H PRN IV hypotension; Start 03/18/21 at 11:00; Stop 03/18/21 at 16:59; Status DC Albumin Human 200 ml @ 200 mls/hr 1X PRN PRN IV Hypotension Last administered on 03/18/21at 12:49; Start 03/18/21 at 11:00; Stop 03/18/21 at 16:59; Status DC Sodium Chloride 1,000 ml @ 400 mls/hr Q2H30M PRN IV PATENCY; Start 03/18/21 at 11:00; Stop 03/18/21 at 22:59; Status DC Info (PHARMACY MONITORING -- do not chart) 1 each PRN DAILY PRN MC SEE COMMENTS; Start 03/18/21 at 11:00; Status Cancel Info (PHARMACY MONITORING -- do not chart) 1 each PRN DAILY PRN MC SEE COMMENTS; Start 03/18/21 at 11:00; Stop 03/21/21 at 12:46; Status DC Meropenem 1 gm/ Sodium Chloride 100 ml @ 200 mls/hr Q24H IV Last administered on 04/06/21at 17:35; Start 03/18/21 at 17:00 Sodium Chloride 1,000 ml @ 1,000 mls/hr Q1H PRN IV hypotension; Start 03/19/21 at 17:15; Stop 03/19/21 at 23:14; Status DC Albumin Human 200 ml @ 200 mls/hr 1X PRN PRN IV Hypotension; Start 03/19/21 at 17:15; Stop 03/19/21 at 23:14; Status DC Sodium Chloride 1,000 ml @ 400 mls/hr Q2H30M PRN IV PATENCY; Start 03/19/21 at 17:15; Stop 03/20/21 at 05:14; Status DC Info (PHARMACY MONITORING -- do not chart) 1 each PRN DAILY PRN MC SEE COMMENTS; Start 03/19/21 at 17:15; Status UNV Info (PHARMACY MONITORING -- do not chart) 1 each PRN DAILY PRN MC SEE COMMENTS; Start 03/19/21 at 17:15; Status Cancel Sodium Chloride 1,000 ml @ 1,000 mls/hr Q1H PRN IV hypotension; Start 03/20/21 at 12:30; Stop 03/20/21 at 18:29; Status DC Albumin Human 200 ml @ 200 mls/hr 1X PRN PRN IV Hypotension Last administered on 03/20/21at 14:04; Start 03/20/21 at 12:30; Stop 03/20/21 at 18:29; Status DC Sodium Chloride (Normal Saline Flush) 10 ml 1X PRN PRN IV AP catheter pack; Start 03/20/21 at 12:30; Stop 03/21/21 at 12:29; Status DC Sodium Chloride (Normal Saline Flush) 10 ml 1X PRN PRN IV CUSTOMER ASSISTANCE ASSOCIATE catheter pack; Start 03/20/21 at 12:30; Stop 03/21/21 at 12:29; Status DC Sodium Chloride 1,000 ml @ 400 mls/hr Q2H30M PRN IV PATENCY; Start 03/20/21 at 12:30; Stop 03/21/21 at 00:29; Status DC Info (PHARMACY MONITORING -- do not chart) 1 each PRN DAILY PRN MC SEE COMMENTS; Start 03/20/21 at 12:30; Stop 03/21/21 at 12:47; Status DC Info (PHARMACY MONITORING -- do not chart) 1 each PRN DAILY PRN MC SEE COMMENTS; Start 03/20/21 at 12:30; Status Cancel Cefazolin Sodium/ Dextrose 50 ml @ 100 mls/hr 1X PREOP ONCE IV ; Start 03/11 09/28 at 13:00; Stop 03/22/21 at 06:30; Status DC Fentanyl Citrate (Fentanyl 2ml Vial) 25 mcg PRN Q5MIN PRN IVP MILD PAIN 1-3; Start 03/23/21 at 06:00; Stop 03/24/21 at 05:59; Status DC Fentanyl Citrate (Fentanyl 2ml Vial) 50 mcg PRN Q5MIN PRN IVP MODERATE PAIN 4- 6; Start 03/23/21 at 06:00; Stop 03/24/21 at 05:59; Status DC Ringer's Solution 1,000 ml @ 30 mls/hr Q24H IV ; Start 03/23/21 at 06:00; Stop 03/23/21 at 17:59; Status Cancel Sodium Chloride 1,000 ml @ 1,000 mls/hr Q1H PRN IV hypotension; Start 03/21/21 at 14:45; Stop 03/21/21 at 20:44; Status DC Albumin Human 200 ml @ 200 mls/hr 1X PRN PRN IV Hypotension Last administered on 03/21/21at 15:36; Start 03/21/21 at 14:45; Stop 03/21/21 at 20:44; Status DC Sodium Chloride 1,000 ml @ 400 mls/hr Q2H30M PRN IV PATENCY; Start 03/21/21 at 14:45; Stop 03/22/21 at 02:44; Status DC Info (PHARMACY MONITORING -- do not chart) 1 each PRN DAILY PRN MC SEE COMMENTS; Start 03/21/21 at 15:30; Status UNV Info (PHARMACY MONITORING -- do not chart) 1 each PRN DAILY PRN MC SEE COMMENTS; Start 03/21/21 at 15:30; Status Cancel Daptomycin 480 mg/ Sodium Chloride 50 ml @ 100 mls/hr [id number]@1900 IV Last administered on 03/21/21at 20:17; Start 03/21/21 at 19:00; Stop 03/22/21 at 13:28; Status DC Micafungin Sodium 100 mg/Dextrose 100 ml @ 100 mls/hr Q24H IV Last administered on 03/24/21at 16:36; Start 03/21/21 at 18:00; Stop 03/25/21 at 10 :27; Status DC Daptomycin 480 mg/ Sodium Chloride 50 ml @ 100 mls/hr QMWF IV Last administered on 03/25/21at 19:52; Start 03/23/21 at 16:00; Stop 03/26/21 at 10:29; Status DC Sodium Chloride 1,000 ml @ 1,000 mls/hr Q1H PRN IV hypotension; Start 03/23/21 at 10:45; Stop 03/23/21 at 16:44; Status DC Sodium Chloride 1,000 ml @ 400 mls/hr Q2H30M PRN IV PATENCY; Start 03/23/21 at 10:45; Stop 03/23/21 at 22:44; Status DC Info (PHARMACY MONITORING -- do not chart) 1 each PRN DAILY PRN MC SEE COMMENTS; Start 03/23/21 at 10:45; Stop 03/25/21 at 12:38; Status DC Cefazolin Sodium/ Dextrose (Ancef 2gm Premix) 2 gm STK-MED ONCE IV ; Start 03/23/21 at 13:00; Stop 03/24/21 at 11:58; Status DC Sodium Chloride 1,000 ml @ 1,000 mls/hr Q1H PRN IV hypotension; Start 03/25/21 at 12:30; Stop 03/25/21 at 18:29; Status DC Albumin Human 200 ml @ 200 mls/hr 1X PRN PRN IV Hypotension; Start 03/25/21 at 12:30; Stop 03/25/21 at 18:29; Status DC Sodium Chloride (Normal Saline Flush) 10 ml 1X PRN PRN IV AP catheter pack; St art 03/25/21 at 12:30; Stop 03/26/21 at 12:29; Status DC Sodium Chloride (Normal Saline Flush) 10 ml 1X PRN PRN IV CUSTOMER ASSISTANCE ASSOCIATE catheter pack; Start 03/25/21 at 12:30; Stop 03/26/21 at 12:29; Status DC Sodium Chloride 1,000 ml @ 400 mls/hr Q2H30M PRN IV PATENCY; Start 03/25/21 at 12:30; Stop 03/26/21 at 00:29; Status DC Info (PHARMACY MONITORING -- do not chart) 1 each PRN DAILY PRN MC SEE COMMENTS; Start 03/25/21 at 12:30; Stop 03/25/21 at 12:38; Status DC Info (PHARMACY MONITORING -- do not chart) 1 each PRN DAILY PRN MC SEE COMMENTS; Start 03/25/21 at 12:30; Status Cancel Furosemide (Lasix) 40 mg 1X ONCE IVP Last administered on 03/26/21at 09:54; Start 03/26/21 at 10:00; Stop 03/26/21 at 10:01; Status DC Fentanyl Citrate (Fentanyl 2ml Vial) 25 mcg PRN Q5MIN PRN IVP MILD PAIN 1-3; Start 03/27/21 at 06:00; Stop 03/28/21 at 05:59; Status DC Fentanyl Citrate (Fentanyl 2ml Vial) 50 mcg PRN Q5MIN PRN IVP MODERATE PAIN 4- 6; Start 03/27/21 at 06:00; Stop 03/28/21 at 05:59; Status DC Morphine Sulfate (Morphine Sulfate) 1 mg PRN Q10MIN PRN IVP SEVERE PAIN 7-10; Start 03/27/21 at 06:00; Stop 03/28/21 at 05:59; Status DC Ringer's Solution 1,000 ml @ 30 mls/hr Q24H IV ; Start 03/27/21 at 06:00; Stop 03/27/21 at 17:59; Status DC Hydromorphone HCl (Dilaudid) 0.5 mg PRN Q10MIN PRN IVP SEVERE PAIN 7-10, 2nd CHOICE; Start 03/27/21 at 06:00; Stop 03/28/21 at 05:59; Status DC Prochlorperazine Edisylate (Compazine) 5 mg PACU PRN PRN IVP NAUSEA, MRX1; Start 03/27/21 at 06:00; Stop 03/28/21 at 05:59; Status DC Info (PHARMACY MONITORING -- do not chart) 1 each PRN DAILY PRN MC SEE COMMENTS; Start 03/27/21 at 09:45; Stop 03/30/21 at 12:58; Status DC Info (PHARMACY MONITORING -- do not chart) 1 each PRN DAILY PRN MC SEE COMMENTS; Start 03/27/21 at 09:45; Status UNV Bupivacaine HCl/ Epinephrine Bitart (Sensorcain-Epi 0.5% Kit) 30 ml STK-MED ONCE .ROUTE Last administered on 03/27/21at 13:12; Start 03/27/21 at 10:05; Stop 03/27/21 at 10:05; Status DC Rocuronium [place] (Zemuron) 50 mg STK-MED ONCE .ROUTE ; Start 03/27/21 at 11:05; Stop 03/27/21 at 11:05; Status DC Propofol (Diprivan) 200 mg STK-MED ONCE IV ; Start 03/27/21 at 12:02; Stop 03/27/21 at 12:03; Status DC Rocuronium [place] (Zemuron) 50 mg STK-MED ONCE .ROUTE ; Start 03/27/21 at 13:16; Stop 03/27/21 at 13:17; Status DC Fentanyl Citrate (Fentanyl 2ml Vial) 100 mcg STK-MED ONCE .ROUTE ; Start 03/27/21 at 13:18; Stop 03/27/21 at 13:18; Status DC Phenylephrine HCl (PHENYLEPHRINE in 0.9% NACL PF) 1 mg STK-MED ONCE IV ; Start 03/27/21 at 13:46; Stop 03/27/21 at 13:46; Status DC Neostigmine [place] (Neostigmine Methylsulfate) 5 mg STK-MED ONCE .ROUTE ; Start 03/27/21 at 14:06; Stop 03/27/21 at 14:07; Status DC Glycopyrrolate (Robinul) 1 mg STK-MED ONCE .ROUTE ; Start 03/27/21 at 14:07; Stop 03/27/21 at 14:07; Status DC Sevoflurane (Ultane) 60 ml STK-MED ONCE IH ; Start 03/27/21 at 14:19; Stop 03/27/21 at 14:20; Status DC Sodium Chloride (Normal Saline Flush) 3 ml QSHIFT PRN IV AFTER MEDS AND BLOOD DRAWS; Start 03/27/21 at 14:30 Naloxone HCl (Narcan) 0.4 mg PRN Q2MIN PRN IV SEE INSTRUCTIONS; Start 03/27/21 at 14:30 Sodium Chloride 1,000 ml @ 25 mls/hr Q24H IV Last administered on 03/28/21at 14:30; Start 03/27/21 at 14:30; Stop 03/29/21 at 14:07; Status DC Furosemide (Lasix) 40 mg 1X ONCE IVP Last administered on 03/29/21at 15:22; Start 03/29/21 at 15:00; Stop 03/29/21 at 15:02; Status DC Info (PHARMACY MONITORING -- do not chart) 1 each PRN DAILY PRN MC SEE COMMENTS; Start 03/30/21 at 13:00; Status Cancel Albumin Human 100 ml @ 100 mls/hr 1X ONCE IV Last administered on 03/30/21at 15:44; Start 03/30/21 at 15:45; Stop 03/30/21 at 16:44; Status DC Amlodipine Besylate (Norvasc) 10 mg DAILY PO Last administered on 04/07/21at 08:09; Start 03/31/21 at 09:00 Haloperidol Lactate (Haldol Inj) 5 mg Q8HRS IVP Last administered on 04/07/21at 05:51; Start 04/01/21 at 11:30 Sodium Chloride 1,000 ml @ 1,000 mls/hr Q1H PRN IV hypotension; Start 04/01/21 at 13:30; Stop 04/01/21 at 19:29; Status DC Sodium Chloride 1,000 ml @ 400 mls/hr Q2H30M PRN IV PATENCY; Start 04/01/21 at 13:30; Stop 04/02/21 at 01:29; Status DC Info (PHARMACY MONITORING -- do not chart) 1 each PRN DAILY PRN MC SEE COMMENTS; Start 04/01/21 at 13:30; Status Cancel Daptomycin 500 mg/ Sodium Chloride 50 ml @ 100 mls/hr Q48H IV Last administered on 04/06/21at 15:10; Start 04/02/21 at 10:00 Sodium Chloride 1,000 ml @ 1,000 mls/hr Q1H PRN IV hypotension; Start 04/03/21 at 08:15; Stop 04/03/21 at 14:14; Status DC Sodium Chloride 1,000 ml @ 400 mls/hr Q2H30M PRN IV PATENCY; Start 04/03/21 at 08:15; Stop 04/03/21 at 20:14; Status DC Info (PHARMACY MONITORING -- do not chart) 1 each PRN DAILY PRN MC SEE COMMENTS; Start 04/03/21 at 08:15; Status Cancel Albumin Human 200 ml @ 200 mls/hr 1X PRN PRN IV Hypotension Last administered on 04/03/21at 09:18; Start 04/03/21 at 09:00; Stop 04/03/21 at 14:59; Status DC Potassium Chloride/Water 100 ml @ 100 mls/hr Q1H IV Last administered on 04/04/21at 09:26; Start 04/04/21 at 07:00; Stop 04/04/21 at 08:59; Status DC Magnesium Sulfate 50 ml @ 25 mls/hr PRN DAILY PRN IV for Mag < 1.7 on am labs; Start 04/04/21 at 13:00 Potassium Chloride/Water 100 ml @ 50 mls/hr PRN Q6HRS PRN IV For K < 3.7 Last administered on 04/06/21at 09:09; Start 04/04/21 at 13:00 Potassium Chloride/Water 100 ml @ 50 mls/hr PRN Q2HR PRN IV total of 40mEq for K < 3.5; Start 04/04/21 at 13:00 Potassium Chloride/Water 100 ml @ 100 mls/hr Q1H IV Last administered on at 15:12; Start 04/04/21 at 14:00; Stop 04/04/21 at 15:59; Status DC Albumin Human 200 ml @ 200 mls/hr 1X PRN PRN IV Hypotension Last administered on 04/06/21at 10:43; Start 04/06/21 at 08:45; Stop 04/06/21 at 14:44; Status DC Sodium Chloride 1,000 ml @ 400 mls/hr Q2H30M PRN IV PATENCY; Start 04/06/21 at 08:45; Stop 04/06/21 at 20:44; Status DC Info (PHARMACY MONITORING -- do not chart) 1 each PRN DAILY PRN MC SEE COMMENTS; Start 04/06/21 at 08:45 Active Scripts Active Reported Novolog Flexpen (Insulin Aspart) 100 Unit/1 Ml Insuln.pen 3-7 SQ TIDACHC Lisinopril 5 Mg Tablet 1 Tab PO DAILY Lantus Solostar (Insulin Glargine,Hum.rec.anlog) 100 Unit/1 Ml Insuln.pen 5 Unit SQ QHS Atorvastatin Calcium 40 Mg Tablet 40 Mg PO HS Vitals/I & O Vital Sign - Last 24 Hours 04/06/21 04/06/21 04/06/21 04/06/21 10:00 11:00 12:00 12:00 Temp 98.9 98.9 Pulse 106 102 100 Resp 36 32 33 B/P (MAP) 188/86 (120) 113/78 (90) 132/79 (96) Pulse Ox 99 100 100 O2 Delivery Ventilator Ventilator Mechanical Ventilator Ventilator 04/06/21 04/06/21 04/06/21 04/06/21 12:25 13:00 14:00 15:00 Pulse 102 100 100 Resp 35 34 35 B/P (MAP) 144/76 (98) 153/83 (106) 171/88 (115) Pulse Ox 100 100 100 100 O2 Delivery Ventilator Ventilator Ventilator Ventilator 04/06/21 04/06/21 04/06/21 04/06/21 15:35 16:00 16:00 17:00 Temp 98.0 98.0 Pulse 108 100 Resp 35 32 B/P (MAP) 187/90 (122) 124/73 (90) Pulse Ox 99 99 99 O2 Delivery Ventilator Mechanical Ventilator Ventilator Ventilator 04/06/21 04/06/21 04/06/21 04/06/21 17:20 18:00 19:00 20:00 Pulse 107 120 Resp 32 22 B/P (MAP) 140/67 (91) 146/74 (98) Pulse Ox 99 100 99 O2 Delivery Ventilator Ventilator Ventilator Mechanical Ventilator 04/06/21 04/06/21 04/06/21 04/06/21 20:00 20:00 21:00 22:00 Temp 100.4 100.4 Pulse 108 108 112 Resp 34 22 23 B/P (MAP) 152/76 (101) 164/80 (108) 174/80 (111) Pulse Ox 98 100 99 99 O2 Delivery Ventilator Ventilator Ventilator Ventilator 04/06/21 04/06/21 04/07/21 04/07/21 23:00 23:00 00:00 00:00 Temp 99.2 99.2 Pulse 110 94 Resp 27 22 B/P (MAP) 164/77 (106) 153/75 (101) Pulse Ox 100 99 94 O2 Delivery Ventilator Ventilator Mechanical Ventilator Ventilator 04/07/21 04/07/21 04/07/21 04/07/21 01:00 02:00 02:00 03:00 Pulse 86 76 80 Resp 21 19 18 B/P (MAP) 128/64 (85) 104/59 (74) 102/59 (73) Pulse Ox 99 99 100 99 O2 Delivery Ventilator Ventilator Ventilator Ventilator 04/07/21 04/07/21 04/07/21 04/07/21 04:00 04:00 04:57 05:00 Temp 99.4 99.4 Pulse 71 70 Resp 18 18 B/P (MAP) 114/61 (78) 102/53 (69) Pulse Ox 100 100 99 O2 Delivery Ventilator Mechanical Ventilator Ventilator Ventilator 04/07/21 04/07/21 04/07/21 04/07/21 06:00 07:00 08:00 08:09 Temp 99.8 99.8 Pulse 68 76 72 71 Resp 18 18 18 B/P (MAP) 102/52 (69) 132/68 (89) 133/67 (89) 133/67 Pulse Ox 99 99 99 O2 Delivery Ventilator Ventilator Ventilator 04/07/21 04/07/21 08:17 09:00 Pulse 75 Resp 18 B/P (MAP) 135/67 (89) Pulse Ox 100 100 O2 Delivery Ventilator Ventilator Intake and Output 04/06/21 04/06/21 04/07/21 15:00 23:00 07:00 Intake Total 1028.3 ml 747.49 ml Output Total 225 ml 880 ml 78 ml Balance -225 ml 148.3 ml 669.49 ml Justicifation of Admission Dx: Justifications for Admission: Justification of Admission Dx: N/A OMERO HEARN MD Apr 07, 2021 09:38
--- NOTE | 2021-04-07 09:48 | PDOC ---
DATE OF SERVICE DATE: 04/07/21 TIME: 09:46 SUBJECTIVE ROS Stable,more alert , following commands tolerated pressure support for 11 hours yesterday. OBJECTIVE Vital Signs Vital Signs Date Time Temp Pulse Resp B/P (MAP) Pulse Ox O2 Delivery O2 Flow Rate FiO2 04/07/21 09:00 75 18 135/67 (89) 100 Ventilator 04/07/21 08:00 99.8 99.8 I & 0 Intake and Output 04/07/21 07:00 Intake Total 1775.79 ml Output Total 1183 ml Balance 592.79 ml IV Total 1126.79 ml Tube Feeding 649 ml Output Urine Total 1183 ml PHYSICAL EXAM Physical Exam GENERAL: On vent HEENT: Anicteric. . Neck Trach+ LUNGS: decreased at bases HEART: S1, S2. No murmurs. ABDOMEN: Obese, soft. Bowel sounds present. GENITOURINARY: Kern and rectal tube in place. EXTREMITIES: Edema present no cyanosis. CENTRAL NERVOUS SYSTEM: awake, on vent PSYCHIATRIC: Unable to assess. DERM has pressure wounds DIAGNOSIS/ASSESSMENT Assessment & Plan BOB-ATN- was anuric , has been non Oliguricfor past 2 -2 weeks , No imp rovement in clearance - requiring dialysis., currently on MWF schedule, No indication today Supportive care, I/O avoid nephrotoxins, Monitor for recovery .Access- temp HDC HypoNatremia - resolved stable HypoKalemia - K low Normal, Change from Nepro to Normal K Tube feed DM 2 - Glucosuria + POA COVID 19 Pneumonia - Unvaccinated , treated, Off isolation Acute Resp Failure- Intubated ; CxR 04/01 Moderate diffuse pulmonary opacities, slightly decreased compared to prior. HTN antihypertensives Anemia -avoid DOYLE 2/2 to Thrombogenic state Family History of ESRD - Per at bedside- Pt's Mom was on dialysis and sister is on Dialysis COMMENT/RELEVANT DATA Meds Current Medications Medications (Trade) Dose Ordered Sig/Pepe Start Time Stop Time Status Last Admin Dose Admin Acetaminophen (Tylenol Supp) 650 mg PRN Q6HRS PRN 02/08/21 01:45 02/17/21 10:45 DC Acetaminophen (Tylenol) 500 mg 1X PRN PRN 03/17/21 13:30 03/18/21 13:29 DC Albumin Human 200 ml @ 200 mls/hr 1X PRN PRN 04/06/21 08:45 04/06/21 14:44 DC 04/06/21 10:43 200 MLS/HR Albuterol Sulfate (Ventolin Hfa) 60 puff STK-MED ONCE 03/17/21 11:29 03/17/21 11:29 DC Alteplase, Recombinant (Cathflo For Central Catheter Clearance) 1 mg 1X ONCE 02/27/21 14:30 02/27/21 14:36 DC 02/27/21 15:19 1 MG Alteplase, Recombinant (Cathflo) 2 mg 1X ONCE 02/27/21 11:00 02/27/21 11:01 DC 02/27/21 11:20 2 MG Amlodipine Besylate (Norvasc) 10 mg DAILY 03/31/21 09:00 04/07/21 08:09 10 MG Atorvastatin Calcium (Lipitor) 40 mg HS 02/08/21 21:00 04/06/21 21:12 40 MG Atropine Sulfate (ATROPINE 0.5mg SYRINGE) 0.5 mg PRN Q5MIN PRN 02/16/21 12:00 Azithromycin 250 mg/Sodium Chloride 250 ml @ 250 mls/hr Q24H 02/14/21 13:30 02/18/21 14:29 DC 02/18/21 11:51 250 MLS/HR Benzonatate (Tessalon Perle) 100 mg [id number] 02/10/21 23:30 02/17/21 10:45 DC 02/16/21 22:07 100 MG Bupivacaine HCl/ Epinephrine Bitart (Sensorcain-Epi 0.5% Kit) 30 ml STK-MED ONCE 03/27/21 10:05 03/27/21 10:05 DC 03/27/21 13:12 16 ML Bupivacaine HCl/ Epinephrine Bitart (Sensorcain-Epi 0.5%-1:298803 Mpf) 30 ml STK-MED ONCE 03/17/21 10:47 03/17/21 10:47 DC Carvedilol (Coreg) 6.25 mg [id number] 02/08/21 20:30 02/23/21 15:50 DC 02/23/21 08:06 6.25 MG Cefazolin Sodium/ Dextrose (Ancef 2gm Premix) 2 gm STK-MED ONCE 03/23/21 13:00 03/24/21 11:58 DC Ceftriaxone Sodium (Rocephin) 1 gm Q24H 02/14/21 13:00 02/23/21 07:34 DC 02/22/21 12:42 1 GM Cellulose (Surgicel Fibrillar 1x2) 1 each STK-MED ONCE 03/17/21 10:47 03/17/21 10:47 DC 03/17/21 11:56 1 EACH Daptomycin 480 mg/ Sodium Chloride 50 ml @ 100 mls/hr QMWF 03/23/21 16:00 03/26/21 10:29 DC 03/25/21 19:52 100 MLS/HR Daptomycin 500 mg/ Sodium Chloride 50 ml @ 100 mls/hr Q48H 04/02/21 10:00 04/06/21 15:10 100 MLS/HR Dexamethasone Sodium Phosphate (Decadron) 2 mg 1X ONCE 02/27/21 09:00 02/26/21 07:15 DC Dexmedetomidine HCl 400 mcg/ Sodium Chloride 100 ml @ 0 mls/hr CONT PRN 02/27/21 09:45 04/07/21 08:06 29 MLS/HR Dextrose (Dextrose 50%-Water Syringe) 12.5 gm PRN Q15MIN PRN 03/01/21 13:00 03/01/21 12:55 12.5 GM Diphenhydramine HCl (Benadryl) 25 mg 1X PRN PRN 03/17/21 13:30 03/18/21 13:29 DC Docusate Sodium (Colace Solution) 100 mg BID 02/23/21 12:00 04/06/21 21:12 100 MG Docusate Sodium (Colace) 100 mg PRN DAILY PRN 02/07/21 08:45 02/23/21 10:47 DC Enalaprilat (Vasotec Inj) 0.625 mg Q6HRS 02/08/21 16:15 02/09/21 16:01 DC 02/09/21 13:42 0.625 MG Enoxaparin Sodium (Lovenox 30mg Syringe) 30 mg Q24H 03/08/21 09:00 03/12/21 15:38 DC 03/12/21 09:04 30 MG Enoxaparin Sodium (Lovenox 40mg Syringe) 40 mg BID 02/09/21 09:00 03/08/21 13:56 DC 03/08/21 08:26 40 MG Enoxaparin Sodium (Lovenox Per Pharmacy Prophylaxis Dosing) 1 each PRN DAILY PRN 02/09/21 06:45 03/12/21 15:38 DC Ephedrine Sulfate (ePHEDrine PF IN SALINE SYRINGE) 50 mg STK-MED ONCE 03/17/21 10:56 03/17/21 10:56 DC Famotidine (Pepcid Vial) 20 mg DAILY 03/10/21 09:00 04/07/21 08:06 20 MG Fentanyl Citrate (Fentanyl 2ml Vial) 100 mcg STK-MED ONCE 03/27/21 13:18 03/27/21 13:18 DC Fluconazole/ Sodium Chloride 100 ml @ 100 mls/hr Q24H 03/07/21 09:00 03/17/21 08:03 DC 03/16/21 08:29 100 MLS/HR Furosemide (Lasix) 40 mg 1X ONCE 03/29/21 15:00 03/29/21 15:02 DC 03/29/21 15:22 40 MG Glycerin/ Hypromellose/ Polyethylene (Artificial Tears) 1 drop PRN Q1HR PRN 02/17/21 10:00 04/05/21 08:02 1 DROP Glycopyrrolate (Robinul) 1 mg STK-MED ONCE 03/27/21 14:07 03/27/21 14:07 DC Guaifenesin (Robitussin Dm) 10 ml PRN Q6HRS PRN 02/10/21 23:30 02/16/21 09:06 10 ML Haloperidol Lactate (Haldol Inj) 5 mg Q8HRS 04/01/21 11:30 04/07/21 05:51 5 MG Heparin Sodium (Porcine) (Heparin Sodium) 5,000 unit Q8HRS 03/13/21 06:00 04/07/21 05:53 5,000 UNIT Hydralazine HCl (Apresoline Inj) 10 mg PRN Q4HRS PRN 02/11/21 12:15 04/06/21 02:45 10 MG Hydromorphone HCl (Dilaudid) 0.5 mg PRN Q10MIN PRN 03/27/21 06:00 03/28/21 05:59 DC Info (PHARMACY MONITORING -- do not chart) 1 each PRN DAILY PRN 04/06/21 08:45 Insulin Glargine (Lantus Syringe) 5 unit BID 03/06/21 09:00 04/07/21 09:28 5 UNIT Insulin Human Lispro (HumaLOG) 12 units Q6HRS 02/20/21 12:00 02/28/21 15:38 DC 02/27/21 05:41 12 UNITS Insulin Human Regular 100 ml @ 10 mls/hr 1X ONCE 02/07/21 06:30 02/07/21 16:54 DC 02/07/21 09:31 6.5 MLS/HR Insulin Human Regular 100 unit/ Sodium Chloride 101 ml @ 0 mls/hr CONT PRN PRN 02/07/21 06:00 02/07/21 16:54 DC Labetalol HCl (Normodyne Iv Push) 10 mg PRN Q2HR PRN 02/08/21 00:45 03/26/21 21:14 10 MG Lactobacillus Rhamnosus (Culturelle) 1 cap BID 02/16/21 21:00 02/17/21 10:45 DC 02/16/21 22:02 1 CAP Lidocaine HCl (Buffered Lidocaine 1%) 3 ml STK-MED ONCE 03/07/21 13:25 03/07/21 13:25 DC Linezolid (Zyvox) 600 mg BID 03/05/21 09:00 03/12/21 07:00 DC 03/11/21 20:33 600 MG Linezolid/Dextrose 300 ml @ 300 mls/hr Q12HR 03/16/21 10:00 03/18/21 07:37 DC 03/17/21 21:44 300 MLS/HR Lisinopril (Prinivil) 20 mg DAILY 02/17/21 09:00 03/09/21 10:43 DC 02/27/21 09:10 20 MG Lorazepam (Ativan Inj) 0.5 mg PRN Q6HRS PRN 02/08/21 10:00 04/01/21 15:32 0.5 MG Magnesium Sulfate 50 ml @ 25 mls/hr PRN DAILY PRN 04/04/21 13:00 Meropenem 1 gm/ Sodium Chloride 100 ml @ 200 mls/hr Q24H 03/18/21 17:00 04/06/21 17:35 200 MLS/HR Methylprednisolone Sodium Succinate (SOLU-Medrol 125MG VIAL) 80 mg Q8HRS 02/25/21 09:00 02/26/21 07:09 DC 02/26/21 05:52 80 MG Metoclopramide HCl (Reglan Vial) 10 mg PRN Q6HRS PRN 02/08/21 00:45 02/12/21 15:51 10 MG Micafungin Sodium 100 mg/Dextrose 100 ml @ 100 mls/hr Q24H 03/21/21 18:00 03/25/21 10:27 DC 03/24/21 16:36 100 MLS/HR Midazolam HCl 100 ml @ 0 mls/hr CONT PRN 02/17/21 10:00 03/20/21 17:18 5 MLS/HR Morphine Sulfate (Morphine Sulfate) 1 mg PRN Q10MIN PRN 03/27/21 06:00 03/28/21 05:59 DC Multi-Ingred Cream/Lotion/Oil/ Oint (Artificial Tears Eye Ointment) 1 reji PRN Q1HR PRN 03/17/21 17:30 03/20/21 15:55 1 REJI Multivitamins/ Minerals Therapeutic (Centrum Multivit-Mineral Liq) 5 ml DAILY 03/14/21 09:00 04/07/21 08:07 5 ML Naloxone HCl (Narcan) 0.4 mg PRN Q2MIN PRN 03/27/21 14:30 Neostigmine [place] (Neostigmine Methylsulfate) 5 mg STK-MED ONCE 03/27/21 14:06 03/27/21 14:07 DC Norepinephrine Bitartrate 8 mg/ Dextrose 258 ml @ 21.711 mls/ hr CONT PRN 03/06/21 13:45 03/19/21 18:45 23.3 MLS/HR Nystatin (Nystop) 1 reji BID 03/02/21 21:00 04/07/21 08:11 1 REJI Ondansetron HCl (Zofran Odt) 4 mg 1X ONCE 02/06/21 23:30 02/06/21 23:31 DC 02/06/21 23:57 4 MG Ondansetron HCl (Zofran) 4 mg 1X ONCE 02/07/21 20:00 02/07/21 20:07 DC 02/07/21 20:06 4 MG Phenylephrine HCl (PHENYLEPHRINE in 0.9% NACL PF) 1 mg STK-MED ONCE 03/27/21 13:46 03/27/21 13:46 DC Piperacillin Sod/ Tazobactam Sod (Zosyn Per Pharmacy) 1 each PRN DAILY PRN 02/23/21 07:45 03/17/21 10:04 DC Piperacillin Sod/ Tazobactam Sod 2.25 gm/Sodium Chloride 50 ml @ 100 mls/hr Q8HRS 03/07/21 14:00 03/17/21 08:03 DC 03/17/21 05:58 100 MLS/HR Piperacillin Sod/ Tazobactam Sod 3.375 gm/Sodium Chloride 50 ml @ 100 mls/hr Q6HRS 03/14/21 18:00 Cancel Piperacillin Sod/ Tazobactam Sod 4.5 gm/Sodium Chloride 100 ml @ 200 mls/hr Q6HRS 02/23/21 08:00 03/07/21 08:18 DC 03/07/21 06:12 200 MLS/HR Potassium Chloride/Water 100 ml @ 100 mls/hr Q1H 04/04/21 14:00 04/04/21 15:59 DC 04/04/21 15:12 100 MLS/HR Potassium Chloride (Klor-Con) 40 meq 1X ONCE 02/13/21 12:00 02/13/21 12:01 DC 02/13/21 13:21 40 MEQ Prochlorperazine Edisylate (Compazine) 5 mg PACU PRN PRN 03/27/21 06:00 03/28/21 05:59 DC Propofol (Diprivan) 200 mg STK-MED ONCE 03/27/21 12:02 03/27/21 12:03 DC Remdesivir 100 mg/ Sodium Chloride 230 ml @ 460 mls/hr Q24H 02/15/21 12:00 02/18/21 12:29 DC 02/18/21 11:52 460 MLS/HR Remdesivir 200 mg/ Sodium Chloride 210 ml @ 210 mls/hr 1X ONCE 02/11/21 13:00 02/12/21 11:55 DC 02/11/21 14:33 210 MLS/HR Ringer's Solution 1,000 ml @ 30 mls/hr Q24H 03/27/21 06:00 03/27/21 17:59 DC Rocuronium Watkins (Zemuron) 50 mg STK-MED ONCE 03/27/21 13:16 03/27/21 13:17 DC Sennosides (Senna) 17.2 mg PRN BID PRN 02/07/21 08:45 02/22/21 08:29 17.2 MG Sevoflurane (Ultane) 60 ml STK-MED ONCE 03/27/21 14:19 03/27/21 14:20 DC Sodium Chloride 1,000 ml @ 400 mls/hr Q2H30M PRN 04/06/21 08:45 04/06/21 20:44 DC Sodium Chloride (Normal Saline Flush) 3 ml QSHIFT PRN 03/27/21 14:30 Succinylcholine Chloride (Anectine) 200 mg STK-MED ONCE 02/17/21 10:00 02/25/21 08:40 DC Vancomycin HCl (Vanco Per Pharmacy) 1 each PRN DAILY PRN 03/04/21 18:30 03/05/21 08:59 DC 03/04/21 19:47 1 EACH Vancomycin HCl (Vancomycin Trough Level) 1 each 1X ONCE 03/06/21 07:00 03/06/21 07:01 Cancel Vancomycin HCl 1.5 gm/Sodium Chloride 500 ml @ 250 mls/hr Q12H 03/05/21 07:30 03/05/21 08:58 DC Vancomycin HCl 1 gm/Sodium Chloride 250 ml @ 250 mls/hr Q12H 03/04/21 20:00 UNV Vancomycin HCl 2 gm/Sodium Chloride 500 ml @ 250 mls/hr 1X ONCE 03/04/21 19:00 03/04/21 20:59 DC 03/04/21 19:26 250 MLS/HR Vecuronium Watkins (Norcuron Bolus) 6 mg PRN Q2HRS PRN 03/06/21 14:30 03/16/21 10:16 5 MG Vitamin A/Vitamin D (Vitamin A & D Ointment) 1 reji PRN Q1HR PRN 03/10/21 01:45 03/20/21 09:34 1 REJI Lab Laboratory Tests Test 04/06/21 18:43 04/07/21 00:11 04/07/21 05:05 04/07/21 05:50 Glucose (Fingerstick) 193 mg/dL (70-99) 256 mg/dL (70-99) 256 mg/dL (70-99) Sodium Level 137 mmol/L (136-145) Potassium Level 3.5 mmol/L (3.5-5.1) Chloride Level 99 mmol/L (98-107) Carbon Dioxide Level 27 mmol/L (21-32) Anion Gap 11 (6-14) Blood Urea Nitrogen 32 mg/dL (7-20) Creatinine 3.0 mg/dL (0.6-1.0) Estimated GFR (Cockcroft-Gault) 16.9 Glucose Level 276 mg/dL (70-99) Calcium Level 9.4 mg/dL (8.5-10.1) Test 04/07/21 08:00 O2 Saturation 99 % (92-99) Arterial Blood pH 7.47 (7.35-7.45) Arterial Blood pCO2 at Patient Temp 32 mmHg (35-46) Arterial Blood pO2 at Patient Temp 151 mmHg (75-108) Arterial Blood HCO3 23 mmol/L (21-28) Arterial Blood Base Excess -1 mmol/L (-3-3) FiO2 40/vent Results All relevant outside records, renal labs, imaging studies, telemetry/EKG's were reviewed. Justicifation of Admission Dx: Justifications for Admission: Justification of Admission Dx: N/A GIGI CARMEN MD Apr 07, 2021 09:48
--- NOTE | 2021-04-07 15:01 | NUR ---
SS following up with discharge planning. SS reviewed pt chart and discussed with pt RN. Pt was able to tolerate trach collar today, but is now currently on the vent at 40%. COVID19 recovered. G tube and trach in place. Pt on IV Meropenem and IV Daptomycin. Pt on Sub Q Heparin. Self pay. Med Assist following. Applications for Medicaid and Disability submitted. Pt needing LTACH but has no benefits at this time. SS will continue to follow for discharge planning.
[2021-04-07] MEDS: MEROPENEM 1 GM in IV NORMAL SALINE 100ML 100 ML IV SCH (17:42)
--- NOTE | 2021-04-07 18:04 | RAD ---
XR CHEST 1V History: Reason: new L arm PICC line / Spl. Instructions: / History: Comparison: April 01, 2021 Findings: Interval placement left PICC with tip projecting over the right atrium. Stable right PICC and right I J central line. Tracheostomy tube 1.6 cm above the maria elena. Mild diffuse pulmonary opacities, decrease d compared to prior. Low lung volumes. No pleural effusion. No pneumothorax. Unchanged heart size. Impression: 1. Interval placement left PICC with tip projecting over the right atrium. 2. Mild diffuse pulmonary opacities, decreased compared to prior. 3. Tracheostomy tube just above the maria elena. Recommend correlation for desired positioning. Electronically signed by: Braeden Echevarria DO (04/07/2021 6:02 PM) KARIN
--- NOTE | 2021-04-07 18:50 | NUR ---
Urine not seen today. Patient is on dialysis. However, when changing her brief this evening there was yellow saturation on the brief. Water from catheter balloon was extracted and new 10cc where instilled.
[2021-04-07] MEDS: ATORVASTATIN CALCIUM 40 MG TABLET. PO SCH (21:07)
[2021-04-07] MEDS: LABETALOL 20 MG/4 ML DISP.SYRIN. IVP PRN (21:11)
[2021-04-07] MEDS: ONDANSETRON PF 4 MG/2 ML VIAL. IVP PRN (22:49)
--- NOTE | 2021-04-07 23:43 | NUR ---
Nursing note: Pt seen with HR in 20s on monitor, upon assessment pt looking like she was holding vomit in her mouth and proceeded to vomit. Pt sat up in bed and turned to side, while suctioning out during vomiting. Pt's hr recovered back into the 90s and low 100s. Turned tube feeding off r/t not being for time with vomiting per day shift rn. Patient back on ventilator now, pt wanted sedation turned back on, fentanyl at 50mcg and propofol restarted.
[2021-04-08] VITALS (25 sets, daily range): BP systolic 101–207; BP diastolic 55–98
[2021-04-08] MEDS: PROPOFOL 100 ML IV PRN (02:39)
[2021-04-08] MEDS: PROCHLORPERAZINE 10 MG/2 ML VIAL. IV PRN (04:05)
[2021-04-08 05:01] LABS: BASO # 0.4 x10^3/uL (0.0-0.2); BASO % 3 % (0-3); EOS # 0.4 x10^3/uL (0.0-0.7); EOS % 3 % (0-3); HEMATOCRIT 28.8 % (36.0-47.0); LYMPH # 2.6 x10^3/uL (1.0-4.8); LYMPH % 19 % (24-48); MEAN CORPUSCULAR HEMOGLOBIN 30 pg (25-35); MEAN CORPUSCULAR HGB CONC 35 g/dL (31-37); MEAN CORPUSCULAR VOLUME 86 fL (79-100); MONO # 1.1 x10^3/uL (0.0-1.1); MONO % 8 % (0-9); NEUT # 9.3 x10^3/uL (1.8-7.7); NEUT % 67 % (31-73); PLATELET COUNT 375 x10^3/uL (140-400); RED BLOOD COUNT 3.34 x10^6/uL (3.50-5.40); RED CELL DISTRIBUTION WIDTH 14.4 % (11.5-14.5); WHITE BLOOD COUNT 13.9 x10^3/uL (4.0-11.0)
[2021-04-08] MEDS: LABETALOL 20 MG/4 ML DISP.SYRIN. IVP PRN (05:11)
[2021-04-08 05:20] LABS: CREATININE 3.7 mg/dL (0.6-1.0); GFR 13.2; POTASSIUM 3.4 mmol/L (3.5-5.1)
[2021-04-08] MEDS: HEPARIN for SUB-Q USE 5,000 UNIT/ML VIAL. SQ SCH ×3 (05:38→21:48)
[2021-04-08] MEDS: INSULIN LISPRO 300 UNITS/3 ML VIAL. SQ SCH ×4 (05:38→23:59)
[2021-04-08] MEDS: DEXMEDETOMIDINE 400 MCG in IV NORMAL SALINE 100ML 96 ML IV PRN ×4 (05:39→21:51)
[2021-04-08] MEDS: hydrALAZINE 20 MG/ML VIAL. IVP PRN (05:49)
--- NOTE | 2021-04-08 07:30 | PDOC ---
Infectious Disease Note Subjective: Subjective Pt intubated Temp around 100F Had nausea and vomiting Discussed with RN Vital Signs: Vital Signs Vital Signs Date Time Temp Pulse Resp B/P (MAP) Pulse Ox O2 Delivery O2 Flow Rate FiO2 04/08/21 06:28 100 20 193/93 (126) 100 Ventilator 04/08/21 04:00 100.2 100.2 Physical Exam: PHYSICAL EXAM GENERAL: Intubated HEENT: Normocephalic, atraumatic. Anicteric. Slight bilateral periorbital edema. Latter improving Neck right IJ HDC clean Trach + LUNGS: Rhonchi. HEART: S1, S2. No murmurs. ABDOMEN: Obese, soft. Bowel sounds present. Nontender, nondistended. PEG tube in place GENITOURINARY: Kern and fecal tube in place. EXTREMITIES: Edema present no cyanosis. CENTRAL NERVOUS SYSTEM: Intubated. PSYCHIATRIC: Unable to assess. Derm has pressure wounds wound pictures noted in chart. Generalized rash, Right PICC line February 14 removed; left PICC line 04/07/2021 Right IJ HDC clean March 07 Medications: Inpatient Meds: Medications reviewed. Labs: Lab Laboratory Tests Test 04/07/21 08:00 04/07/21 11:51 04/07/21 17:57 04/07/21 23:35 O2 Saturation 99 % (92-99) Arterial Blood pH 7.47 (7.35-7.45) Arterial Blood pCO2 at Patient Temp 32 mmHg (35-46) Arterial Blood pO2 at Patient Temp 151 mmHg (75-108) Arterial Blood HCO3 23 mmol/L (21-28) Arterial Blood Base Excess -1 mmol/L (-3-3) FiO2 40/vent Glucose (Fingerstick) 229 mg/dL (70-99) 156 mg/dL (70-99) 193 mg/dL (70-99) Test 04/08/21 04:45 White Blood Count 13.9 x10^3/uL (4.0-11.0) Red Blood Count 3.34 x10^6/uL (3.50-5.40) Hemoglobin 10.0 g/dL (12.0-15.5) Hematocrit 28.8 % (36.0-47.0) Mean Corpuscular Volume 86 fL (79-100) Mean Corpuscular Hemoglobin 30 pg (25-35) Mean Corpuscular Hemoglobin Concent 35 g/dL (31-37) Red Cell Distribution Width 14.4 % (11.5-14.5) Platelet Count 375 x10^3/uL (140-400) Neutrophils (%) (Auto) 67 % (31-73) Lymphocytes (%) (Auto) 19 % (24-48) Monocytes (%) (Auto) 8 % (0-9) Eosinophils (%) (Auto) 3 % (0-3) Basophils (%) (Auto) 3 % (0-3) Neutrophils # (Auto) 9.3 x10^3/uL (1.8-7.7) Lymphocytes # (Auto) 2.6 x10^3/uL (1.0-4.8) Monocytes # (Auto) 1.1 x10^3/uL (0.0-1.1) Eosinophils # (Auto) 0.4 x10^3/uL (0.0-0.7) Basophils # (Auto) 0.4 x10^3/uL (0.0-0.2) Sodium Level 139 mmol/L (136-145) Potassium Level 3.4 mmol/L (3.5-5.1) Chloride Level 100 mmol/L (98-107) Carbon Dioxide Level 24 mmol/L (21-32) Anion Gap 15 (6-14) Blood Urea Nitrogen 41 mg/dL (7-20) Creatinine 3.7 mg/dL (0.6-1.0) Estimated GFR (Cockcroft-Gault) 13.2 Glucose Level 230 mg/dL (70-99) Calcium Level 10.0 mg/dL (8.5-10.1) Triglycerides Level 703 mg/dL (0-150) Micro GRAM STAIN EVALUATION Final Final This specimen is of good quality and is acceptable for routine bacterial culture. Culture results to follow. NO ORGANISMS SEEN. SQUAMOUS EPI CELL:RARE PMN (WBCs):MODERATE Unless otherwise specified, Testing Performed by: [facility] [address] [place] [address] For Inquires, the Physician may contact the Microbiology department at [phone] RESPIRATORY CULTURE Final Final MODERATE GRAM NEGATIVE RODS on 03/18/21 at 1124 FINAL ID= [ACINETOBACTER [email or web address].] ACINETOBACTER URSINGII. ANTIMICROBIAL SUSCEPTIBILITY Final Comment NEG SAGE 56 ACINETOBACTER URSINGII. ANTIBIOTIC RESULT INTERPRETATION AMPICILLIN/SULBACTAM <=4/2 S AMIKACIN <=16 S CEFTRIAXONE 2 S CEFTAZIDIME 16 I CEFOTAXIME 16 I CIPROFLOXACIN <=0.25 S CEFEPIME 4 S GENTAMICIN <=2 S LEVOFLOXACIN <=0.5 S RUN DATE: 03/19/21 [email or web address] *LIVE* PAGE 2 RUN TIME: 1120 Specimen Inquiry SPEC: [id number] PATIENT: ARIADNA BANKS [id number] (Continued) Procedure Result --------- --- CONTINUED ON NEXT PAGE RUN DATE: 03/19/21 [facility] *LIVE* PAGE 3 RUN TIME: 1120 Specimen Inquiry SPEC: [id number] PATIENT: ARIADNA BANKS [id number] (Continued) Procedure Result ANTIMICROBIAL SUSCEPTIBILITY Final (continued) MINOCYCLINE <=4 S MEROPENEM <=1 S TRIMETHOPRIM/SULFAMETHOXAZOLE <=0.5/9.5 S TOBRAMYCIN <=2 S Unless otherwise specified, Testing Performed by: [address] [address] For Inquires, the Physician may contact the Microbiology department at [phone] Culture negative Objective: Assessment: 1. Febrile illness. 2. COVID-19 infection present on date of admission, 02/06/2021. Status post remdesivir, dexamethasone. 3. Acute hypoxic respiratory failure, status post intubation. S/P Trach on 03/17 Trach cultures positive for Rock albicans and now acinebacter ursungi 4. Diabetes. 5. Diarrhea. 6. Hypertension. 7. Hyperlipidemia. 8. Anemia. 9. BOB on HD 10. rock albican, ua neg 11. Nausea and vomiting Plan: Plan of Care Cont Meropenem Continue daptomycin Status post PICC line exchange Maintain aspiration precautions Monitor lab and cultures C. 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 Prognosis poor D/W KAITLYNN CURIEL MD Apr 08, 2021 07:30
--- NOTE | 2021-04-08 07:57 | PDOC ---
PROGRESS NOTES Date of Service: DATE: 04/08/21 TIME: 07:57 Chief Complaint Chief Complaint impression Covid-19 DKA Hypotension Nausea Vomiting Combined metabolic and respiratory acidosis Acute electrolyte derangementhyponatremia, hypochloremia due to volume depletion Hyperglycemia BOB due to ATN, requiring dialysis Erythrocytosis Candiduria Sacral decubitus ulcer S/P Trach on (03/17/21) Trach cultures positive for [place] albicans and now acinebacter ursungi Patient febrile morning of 04/02. Adding daptomycin per infectious disease. History of Present Illness History of Present Illness Ms Banks is a 46 year old female who presented with nausea/vomiting since 7 AM 02/06/2021 in the morning. Patient stated that her recently tested positive for Covid. She states that he "coughed in my face because he thought it was funny." She reports subjective fevers and chills and nausea/vomiting. Denies sore throat, cough, shortness of breath. No chest pain. Does have some upper abdominal discomfort after vomiting, that she attributes to muscular strain. She was not vaccinated for Covid. 02/08: No acute events overnight. Patient seen and examined bedside and resting comfortably. Continues to complain of nausea not able to tolerate any diet at this time. Saturating 98% on room air. Patient's chart, labs, images were reviewed and discussed with RN 2: Afebrile, currently breathing on room air. Still with complaints of nausea and vomiting x3 today. States that she has history of similar symptoms that have been mildly improved with IV Dilaudid. 02/10: Patient febrile today with T-max 102.2 F. She still admits to nausea, denies any further vomiting. We will continue to provide supportive care and monitor for any recurrent fevers overnight. Patient continues to improve may discharge tomorrow to continue self-isolation. 02/11: Febrile overnight, T-max 102.3 F. She did become hypoxic overnight, currently breathing on 4 L nasal cannula. Also admits to associated vomiting or diarrhea overnight. Discussed with RN, will initiate remdesivir and closely monitor LFTs. IV Decadron, and prophylactic antibiotics. 02/12: Low-grade fever overnight, T-max 99.7. Currently breathing on room air. Will discontinue remdesivir, steroids, and antibiotics; will observe overnight. Still with complaints of vomiting x1 and diarrhea. We will continue to provide supportive care and hope to discharge in the next day or so. 02/13: Afebrile. Still complains of intermittent diarrhea. At the time of my evaluation she was breathing on 6 L nasal cannula; this is somewhat misleading as patient states that she did not feel short of breath but was placed on 6 L by nursing staff overnight. 02/14: Afebrile, currently breathing on 8 L nasal cannula. There has been some misleading documentation, chart oxygen this patient is requiring. Discussed with RN, will resume remdesivir to complete total of 5 days. Continue to monitor LFTs. Will add steroids, Rocephin, and azithromycin. 02/15: Afebrile. Became much more hypoxic overnight, requiring BiPAP. At the time of my evaluation she is still breathing on BiPAP. Consultation was placed to pulmonology. Had discussion with Dr. Myrick about initiating Tocilizumab 02/16: No acute events overnight. Patient becoming more hypoxic saturating 94% and requiring BiPAP. Patient will be transferred to the ICU at this time. For worsening clinical status. Discussed with pulmonary. Patient's chart, labs, images were reviewed and discussed with RN 02/17: Transferred to ICU yesterday afternoon. Seen and examined at bedside she remains on 100% FiO2 on BiPAP. Respirations do appear somewhat labored. Suspect intubation may be impending. We will closely monitor. Increase lisinopril to 20 today. 02/18: Patient required intubation yesterday afternoon. Saw and examined this morning. She is intubated and sedated. Increase insulin today. Covid protocol ordered. Wean as tolerated. Plan of care discussed with bedside nurse. 02/19: Bedside. She remains intubated and sedated. Continue Covid protocol. Wean oxygen sedation as tolerated. Pulmonary following. Plan of care discussed with bedside RN. 02/20: Patient seen and examined at bedside. She remains intubated and sedated. No major clinical changes. Continue current treatment. Pulmonary following. Plan of care discussed with bedside RN. 02/21: Patient seen and examined at bedside. Remains intubated and sedated date and admission clinical changes. Increase free water flushes today due to hypernatremia. Plan of care discussed with bedside nurse. 02/22: Patient seen and examined at bedside. O2 requirement actually improving, although remains intubated. Possible SBT in the coming days. Hypernatremia improving. Plan of care discussed bedside RN. 02/23: Patient remains in ICU on ventilator with FiO2 100%, PEEP 7. Repeat chest x-ray yesterday showed diffuse bilateral pulmonary opacities with no interval improvement. Will discontinue Rocephin and initiate Zosyn. We will continue IV steroids for a full 10-day course 02/24: Afebrile. On vent with FiO2 40%, PEEP 6. Her Coreg has been held due to persistent bradycardia. No documented history of systolic heart failure or previous echocardiogram. Will need to obtain echocardiogram prior to discharge. Continue IV steroids and antibiotics. 02/25: Afebrile. Remains ventilated with FiO2 45%, PEEP 6. Chest x-ray today showed slight improvement of the pulmonary infiltrates, no pneumothorax. Completed 10-day course of IV Decadron. Will initiate slow Solu-Medrol taper. Continue IV Zosyn. Continue supportive care. 02/26: Afebrile. On vent with FiO2 45%, PEEP 6. Completed 10 days of IV Decadron. Will continue IV Zosyn. Continue supportive care. Critical care time 30 minutes spent reviewing charts, reviewing imaging, reviewing labs, discussion with RN. 02/27: Afebrile. On vent with FiO2 45%, PEEP 6. Completed 10 days of steroids and completed remdesivir. Continue with IV Zosyn. CPAP trial yesterday. Continue NG tube and supportive care. 02/28:. Patient remains on vent with FiO2 40%, PEEP 5. Afebrile. Completed steroids and remdesivir. Some noted hypoglycemia overnight, will de-escalate basal insulin. Continue IV Zosyn. Ventilator management per pulmonology. Continue NG tube and supportive care. 03/01: On vent with FiO2 40%, PEEP 5. Afebrile. Completed steroids and remdesivir. Blood glucose well controlled. Continue empiric antibiotics with Zosyn. Ventilator management per pulmonology. Continue NG tube and supportive care. 03/02: No acute events overnight. Patient hypotensive the morning due to oversedation. Will wean off sedation and keep antihypertensive medications on board. Currently saturating 100% on vent settings of 18/450/40/5. Will attempt spontaneous breathing trial today to see how patient does. 03/03: No acute events overnight. Patient saturating 98% on vent settings of 18 /450/40/5. Will defer spontaneous breathing trials to pulmonary at this time. Patient's chart, labs, images were reviewed and discussed with RN 03/04: No acute events overnight. Patient saturating 9 9% on vent settings of 18/450/30/5. Patient currently is unable to tolerate weaning. Per pulmonary. Patient's chart, labs, images were reviewed and discussed with RN 03/05: No acute events overnight. Patient is saturating 97% on vent settings of 18/450/55/5. Her FiO2 needs to be increased due to abnormal ABG with 7.3 /. Patient's chart, labs, images were reviewed and discussed with RN 03/06: No acute events overnight. Patient saturating 94% on vent settings of 18/450/55/5. Chest x-ray showing increase in pulmonary infiltrates. Wound care is consulted for decubitus ulcer patient's chart, labs, images were reviewed and discussed with RN 03/07: No acute events overnight. Patient saturating 94% on vent settings of 20/450/70/8. Patient now heading into renal failure with her creatinine bumped up from 1.5-4.2. Decreased urine output. Plan for hemodialysis today and temporary catheter placement and nephrology is consulted. 03/08: No acute events overnight. Patient did have a nausea vomiting episode and tube feeds were held. KUB repeat shows NG tube still in the stomach. Will resume tube feeds at trickle and advance to goal today. Will start hemodialysis soon. 03/09: Seen on vent 20/450/60%/8. ABG 7.2 WBC 11.4, Hb 7.4, platelets 188, NA 131, K4.9, BUN 48, CR 51, glucose 199, phosphorus 7.9, mag 2.2, AST 265 ALT 219, albumin 1.1. Chest radiograph appears unchanged from prior. Dialysis x1 today 03/10: Afebrile. Seen on vent, 20/450/60/7 with ABG 7.3 . Tolerated dialysis well on 03/09. LFTs similar. 03/11: Afebrile. Seen on vent, sedated. Still requiring Levophed for BP support. WBC 16.7, Hb 8.1, NA 130, ABG 7.3 on 55% FiO2 PEEP 6. On Zosyn and Zyvox Diflucan. Dialysis today 03/12: Afebrile. Still requiring Levophed for BP support sedated with Versed febrile Precedex. WBC 16.1, Hb 8.5, platelets 185, NA 133. Trach plan tentatively 03/17. O2 saturations 93% on 50% FiO2 PEEP 6. ABG 7. On Zosyn and Zyvox Diflucan. 03/13: Afebrile. Still on Levophed for BP support lightly sedated. 7. on 45% FiO2. Plan for dialysis today. On Zosyn and Zyvox Diflucan. More swollen today. 03/14: Afebrile. Weaning down off Levophed. WBC 14.9 NA 132. O2 saturations 92% on 45% FiO2 PEEP 5. Afebrile. O2 saturations 91% on FiO2 45% PEEP 6. Continued on Zosyn and Zyvox Diflucan. Tentative trach planned 03/17/2021 CC time 31 minutes 03/16/21: Patient seen and examined in ICU. Periorbital as well as upper and lower extremity edema noted. OG feed running at 30cc/hr. Still on vent on pressure control with a rate of 24 with 45% FiO2. Patient has rectal bag. Currently she has 98% O2 sat. Currently sedated with Dexmedetomidine, Propofol, Versed, and Fentanyl. Discussed with RN. Chart reviewed. 03/17/21: Patient was seen and examined in the ICU today. Periorbital edema as well as abdominal and mons pubis edema was noted. Patient still on vent on pressure control with Fi02 of 45% plus 6 PEEP. Patient had rectal bag. Currently sedated on Dexmedetomidine, Propofol, Versed, and Fentanyl. Discussed with RN. Chart reviewed. 03/18/21: Patient seen and examined in ICU. On vent via trach that was placed yesterday. Vent settings are Pressure Control of 40 with FiO2 of 45% and 6 PEEP. Trach clean and dry. Orbital swelling still present. Pupils are sluggish. Patient on TPN running at 30cc/hr. Kern to bedside and rectal bag in place. Current O2 sat at 94%. Sedated on Dexmedetomidine, Propofol, Versed, and Fentanyl. Discussed with RN. Chart reviewed. 03/19/21: Patient was seen and examined in the ICU today. Currently on vent via trach on pressure control of 42, rate of 24, FiO2 of 45%, and 6 PEEP. O2 sat is at 97% while patient is being examined. Trach is clean and dry. PICC line is in place on right arm. Periorbital swelling has decreased slightly since examined yesterday. Patient is sedated on Dexmedetomidine, Propofol, Versed, and Fentanyl. Discussed with RN. Chart reviewed. 03/20/21: Patient seen and examined in the ICU. Periorbital edema is slightly decreased since yesterday. O2 sat while being examined was 93%. NG tube in place and running at 30cc/hr. Patient on vent via trach on pressure control of 40 with FiO2 of 45 and rate of 24. Sedated on Dexmedetomidine, Propofol, Versed, and Fentanyl. PICC line in place. Kern to bedside. Rectal bag present. Discussed with RN. Chart reviewed. 03/21/21: Patient was seen and examined in the ICU today. She was semi-sedated.. She was on Dexmedetomidine and Fentanyl. We are holding the Propofol. Her eyes were periodically open but she was not making meaningful eye contact or tracking. On vent via trach with pressure control of 40 and FiO2 at 45. Rate was 24. PEEP was 5. Trach was clean and dry. While being examined, her O2 sat was 94%. Rectal bag and Kern to bedside in place. NG tube in place and feeding at 30cc/hr. IV fluids still running. Levophed has been stopped. Discussed with RN. Chart reviewed. 03/22/21: Patient was seen and examined in the ICU. She was semi-sedated on Propofol and Dexmedetomidine. Her eyes were open but she did not make meaningful eye contact. Her blood pressure was elevated (198/102) while being examined and she had just been given hydralazine to lower it. There are plans to place a PEG tube tomorrow. Currently on vent via trach on pressure control of 40 with FiO2 of 45%, 5 PEEP, and a rate of 24. Current O2 sat is 98%. She is feeding through an NG tube at 30cc/hr. Rectal bag and Kern to bedside present. SCDs on patient for DVT prophylaxis. She did not do her daily dialysis today but the plan is to start back on that tomorrow. Discussed with RN. Chart reviewed. 03/23/2021: Patient remains in ICU on ventilator. FiO2 40%, PEEP 5. Trach cultures positive for [place] albicans and acinebacter ursungi. We will cont inue treatment with IV antibiotics and micafungin, per ID. HD per nephrology. Plans for PEG tube placement today. 30 minutes critical care time was spent reviewing charts, reviewing labs, reviewing imaging, discussion with RN. 03/24/2021: Afebrile. On vent with FiO2 45%, PEEP 5. Had attempted PEG placement per GI yesterday, but unable to locate safe path for PEG; will consider surgical opinion. Once PEG is in place she should be stable for LTAC transfer when accepted. Continue antibiotics, per ID. 30 minutes critical care time was spent reviewing charts, reviewing labs, reviewing imaging, discussion with RN. 03/25/2021: Febrile overnight with T-max 101.5 F. On vent with FiO2 45%, PEEP 5. Surgery has been consulted with tentative plans for laparoscopic versus open gastrostomy placement tomorrow. Trach cultures positive for [place] albicans and now acinebacter ursungi; will continue antibiotic management, per ID. Hemodialysis, per nephrology. Patient needing LTAC placement, but currently without benefits. reinforcing iron worker helper following for discharge planning. Critical care time 30 minutes spent reviewing charts, reviewing labs, reviewing imaging, discussion with RN. 03/26/2021: Febrile today with T-max 100.5 F. Awake on vent with FiO2 45%, PEEP 5. When I ask if she remembers any she nods. G-tube placement scheduled for tomorrow, per general surgery. Chest x-ray today showed slight interval increase in diffuse infiltrate. Continue antibiotic management, per ID. Hemodialysis per nephrology. Reportedly did not tolerate CPAP trial this morning. reinforcing iron worker helper following for LTAC placement. Critical care time 30 minutes spent reviewing charts, reviewing labs, reviewing imaging, discussion with RN. 03/27/2021: On vent with FiO2 45%, PEEP 5. Afebrile today. Continue treatment of acute renal failure requiring HD, per nephrology. Monitor kidney function for recovery. G-tube placement scheduled for today, per general surgery. Likely LTAC placement soon, but this is been a difficult as she is self-pay without benefits; social services director following. Critical care time 30 minutes spent reviewing charts, reviewing labs, reviewing imaging, discussion with RN. 03/28/2021: Afebrile. On vent with FiO2 40%, PEEP 5. Had laparoscopic gastrostomy tube placed yesterday, per general surgery. Continue treatment of acute renal failure requiring HD, per nephrology. Continue IV antibiotics, per ID. Likely LTAC placement soon, but this is been a difficult as she is self-pay without benefits; social services director following. Critical care time 30 minutes spent reviewing charts, reviewing labs, reviewing imaging, discussion with RN. 03/29/2021: Afebrile. On vent with FiO2 45%, PEEP 5. S/P laparoscopic gastrostomy tube; tube feeds running. HD, per nephrology. Continue meropenem, per ID. Anticipate LTAC placement soon now that PEG has being placed; social services director helping in these regards. Critical care time 30 minutes spent reviewing charts, reviewing labs, reviewing imaging, discussion with RN. 03/30 No major events or clinical changes overnight. Patient evaluated at bedside this morning on trach and G-tube. Tolerating these well. Has been working on insurance for patient for placement as she will need long-term care. Guarded prognosis. Plan of care discussed with bedside nurse. 03/31 No major clinical changes. Remains trached. Sedated. Continue current plan. 04/01 No changes. Patient resting in bed when evaluated sedated. is supposed to be working on insurance for placement for the patient. Otherwise no changes. 04/02 Patient febrile overnight, daptomycin added this morning per infectious disease. Otherwise no major clinical changes. Awaiting insurance. Infectious disease, pulmonary and renal following. Plan of care discussed with bedside RN. 04/03 Patient undergoing dialysis today. Evaluated at bedside this morning. otherwise continue current plan. supposed working on insurance. 04/04 No major overnight changes. Continue current plan. 04/05 Patient notably more movement this morning eyes open resting in bed otherwise no major changes. Continue current plan. Insurance pending. 04/06 Patient notably more movement this morning eyes open resting in bed current plan. Insurance pending. Continue daptomycin, renal dosing April 02 F/U Blood culture UA urine culture C. diff PCR negative 32 min cc time 04/07 Patient notably more movement this morning eyes open resting in bed current plan. Insurance pending. Continue daptomycin, renal dosing April 02 F/U Blood culture UA urine culture C. diff PCR negative Abnormal chest x-ray consistent with COVID-19 viral pneumonia. Diabetic ketoacidosis--resolved obesity contributing to hypoxia as well. BOB . hemodialysis started 03/07 DVT GI prophylaxis Nutritional support 34 min cc time 04/08 Patient notably more movement this morning eyes open resting in bed current plan. Insurance pending. Continue daptomycin, renal dosing April 02 F/U Blood culture UA urine culture C. diff PCR negative s/p lap G-tube 03/27 Abnormal chest x-ray consistent with COVID-19 viral pneumonia. Diabetic ketoacidosis--resolved obesity contributing to hypoxia as well. BOB . hemodialysis started 03/07 DVT GI prophylaxis Nutritional support Right PICC line February 14 out; left PICC line 04/07/2021 Right IJ HDC clean March 07 32 min cc time Vitals Vitals Vital Signs Date Time Temp Pulse Resp B/P (MAP) Pulse Ox O2 Delivery O2 Flow Rate FiO2 04/08/21 06:28 100 20 193/93 (126) 100 Ventilator 04/08/21 04:00 100.2 100.2 Physical Exam Physical Exam GENERAL: Intubated HEENT: Normocephalic, atraumatic. Anicteric. Slight bilateral periorbital edema. Latter improving Neck right IJ HDC clean Trach + LUNGS: Rhonchi. HEART: S1, S2. No murmurs. ABDOMEN: Obese, soft. Bowel sounds present. Nontender, nondistended. PEG tube in place GENITOURINARY: Kern and fecal tube in place. EXTREMITIES: Edema present no cyanosis. CENTRAL NERVOUS SYSTEM: Intubated. PSYCHIATRIC: Unable to assess. Derm has pressure wounds wound pictures noted in chart. Generalized rash, Right PICC line February 14 removed; left PICC line 04/07/2021 Right IJ HDC clean March 07 General: No acute distress, Other (sedated) Heart: Regular rate, Normal S1, Normal S2 Lungs: Clear Abdomen: Soft, Other (G-tube in place) Extremities: No cyanosis, Other (ANASARCA) Skin: No rashes, No significant lesion Labs LABS PATIENT: ARIADNA BANKS ACCOUNT: [id number] : 1975 LOCATION: 1 [facility] AGE: 46 SEX: F EXAM STATUS: ADM IN ORD. PHYSICIAN: KAITLYNN CRAIG MD REASON: new L arm PICC line PROCEDURE: PORTABLE CHEST 1V XR CHEST 1V History: Reason: new L arm PICC line / Spl. Instructions: / History: Comparison: April 01, 2021 Findings: Interval placement left PICC with tip projecting over the right atrium. Stable right PICC and right IJ central line. Tracheostomy tube 1.6 cm above the maria elena. Mild diffuse pulmonary opacities, decreased compared to prior. Low lung volumes. No pleural effusion. No pneumothorax. Unchanged heart size. Impression: 1. Interval placement left PICC with tip projecting over the right atrium. 2. Mild diffuse pulmonary opacities, decreased compared to prior. 3. Tracheostomy tube just above the maria elena. Recommend correlation for desired positioning. Electronically signed by: Braeden Echevarria DO (04/07/2021 6:02 PM) [facility] DICTATED and SIGNED BY: BRAEDEN ECHEVARRIA DO DATE: 04/07/21 [id number] Laboratory Tests Test 04/07/21 08:00 04/07/21 11:51 04/07/21 17:57 04/07/21 23:35 O2 Saturation 99 % (92-99) Arterial Blood pH 7.47 (7.35-7.45) Arterial Blood pCO2 at Patient Temp 32 mmHg (35-46) Arterial Blood pO2 at Patient Temp 151 mmHg (75-108) Arterial Blood HCO3 23 mmol/L (21-28) Arterial Blood Base Excess -1 mmol/L (-3-3) FiO2 40/vent Glucose (Fingerstick) 229 mg/dL (70-99) 156 mg/dL (70-99) 193 mg/dL (70-99) Test 04/08/21 04:45 White Blood Count 13.9 x10^3/uL (4.0-11.0) Red Blood Count 3.34 x10^6/uL (3.50-5.40) Hemoglobin 10.0 g/dL (12.0-15.5) Hematocrit 28.8 % (36.0-47.0) Mean Corpuscular Volume 86 fL (79-100) Mean Corpuscular Hemoglobin 30 pg (25-35) Mean Corpuscular Hemoglobin Concent 35 g/dL (31-37) Red Cell Distribution Width 14.4 % (11.5-14.5) Platelet Count 375 x10^3/uL (140-400) Neutrophils (%) (Auto) 67 % (31-73) Lymphocytes (%) (Auto) 19 % (24-48) Monocytes (%) (Auto) 8 % (0-9) Eosinophils (%) (Auto) 3 % (0-3) Basophils (%) (Auto) 3 % (0-3) Neutrophils # (Auto) 9.3 x10^3/uL (1.8-7.7) Lymphocytes # (Auto) 2.6 x10^3/uL (1.0-4.8) Monocytes # (Auto) 1.1 x10^3/uL (0.0-1.1) Eosinophils # (Auto) 0.4 x10^3/uL (0.0-0.7) Basophils # (Auto) 0.4 x10^3/uL (0.0-0.2) Sodium Level 139 mmol/L (136-145) Potassium Level 3.4 mmol/L (3.5-5.1) Chloride Level 100 mmol/L (98-107) Carbon Dioxide Level 24 mmol/L (21-32) Anion Gap 15 (6-14) Blood Urea Nitrogen 41 mg/dL (7-20) Creatinine 3.7 mg/dL (0.6-1.0) Estimated GFR (Cockcroft-Gault) 13.2 Glucose Level 230 mg/dL (70-99) Calcium Level 10.0 mg/dL (8.5-10.1) Triglycerides Level 703 mg/dL (0-150) Assessment and Plan Assessmemt and Plan Problems Medical Problems: (1) Ketoacidosis Status: Acute Comment Review of Relevant I have reviewed the following items mazin (where applicable) has been applied. Labs Laboratory Tests Test 04/06/21 08:00 04/06/21 18:43 04/07/21 00:11 04/07/21 05:05 O2 Saturation 99 % (92-99) Arterial Blood pH 7.48 (7.35-7.45) Arterial Blood pCO2 at Patient Temp 32 mmHg (35-46) Arterial Blood pO2 at Patient Temp 144 mmHg (75-108) Arterial Blood HCO3 23 mmol/L (21-28) Arterial Blood Base Excess 0 mmol/L (-3-3) FiO2 40 Glucose (Fingerstick) 193 mg/dL (70-99) 256 mg/dL (70-99) Sodium Level 137 mmol/L (136-145) Potassium Level 3.5 mmol/L (3.5-5.1) Chloride Level 99 mmol/L (98-107) Carbon Dioxide Level 27 mmol/L (21-32) Anion Gap 11 (6-14) Blood Urea Nitrogen 32 mg/dL (7-20) Creatinine 3.0 mg/dL (0.6-1.0) Estimated GFR (Cockcroft-Gault) 16.9 Glucose Level 276 mg/dL (70-99) Calcium Level 9.4 mg/dL (8.5-10.1) Test 04/07/21 05:50 04/07/21 08:00 04/07/21 11:51 04/07/21 17:57 Glucose (Fingerstick) 256 mg/dL (70-99) 229 mg/dL (70-99) 156 mg/dL (70-99) O2 Saturation 99 % (92-99) Arterial Blood pH 7.47 (7.35-7.45) Arterial Blood pCO2 at Patient Temp 32 mmHg (35-46) Arterial Blood pO2 at Patient Temp 151 mmHg (75-108) Arterial Blood HCO3 23 mmol/L (21-28) Arterial Blood Base Excess -1 mmol/L (-3-3) FiO2 40/vent Test 04/07/21 23:35 04/08/21 04:45 Glucose (Fingerstick) 193 mg/dL (70-99) White Blood Count 13.9 x10^3/uL (4.0-11.0) Red Blood Count 3.34 x10^6/uL (3.50-5.40) Hemoglobin 10.0 g/dL (12.0-15.5) Hematocrit 28.8 % (36.0-47.0) Mean Corpuscular Volume 86 fL (79-100) Mean Corpuscular Hemoglobin 30 pg (25-35) Mean Corpuscular Hemoglobin Concent 35 g/dL (31-37) Red Cell Distribution Width 14.4 % (11.5-14.5) Platelet Count 375 x10^3/uL (140-400) Neutrophils (%) (Auto) 67 % (31-73) Lymphocytes (%) (Auto) 19 % (24-48) Monocytes (%) (Auto) 8 % (0-9) Eosinophils (%) (Auto) 3 % (0-3) Basophils (%) (Auto) 3 % (0-3) Neutrophils # (Auto) 9.3 x10^3/uL (1.8-7.7) Lymphocytes # (Auto) 2.6 x10^3/uL (1.0-4.8) Monocytes # (Auto) 1.1 x10^3/uL (0.0-1.1) Eosinophils # (Auto) 0.4 x10^3/uL (0.0-0.7) Basophils # (Auto) 0.4 x10^3/uL (0.0-0.2) Sodium Level 139 mmol/L (136-145) Potassium Level 3.4 mmol/L (3.5-5.1) Chloride Level 100 mmol/L (98-107) Carbon Dioxide Level 24 mmol/L (21-32) Anion Gap 15 (6-14) Blood Urea Nitrogen 41 mg/dL (7-20) Creatinine 3.7 mg/dL (0.6-1.0) Estimated GFR (Cockcroft-Gault) 13.2 Glucose Level 230 mg/dL (70-99) Calcium Level 10.0 mg/dL (8.5-10.1) Triglycerides Level 703 mg/dL (0-150) Laboratory Tests Test 04/07/21 08:00 04/07/21 11:51 04/07/21 17:57 04/07/21 23:35 O2 Saturation 99 % (92-99) Arterial Blood pH 7.47 (7.35-7.45) Arterial Blood pCO2 at Patient Temp 32 mmHg (35-46) Arterial Blood pO2 at Patient Temp 151 mmHg (75-108) Arterial Blood HCO3 23 mmol/L (21-28) Arterial Blood Base Excess -1 mmol/L (-3-3) FiO2 40/vent Glucose (Fingerstick) 229 mg/dL (70-99) 156 mg/dL (70-99) 193 mg/dL (70-99) Test 04/08/21 04:45 White Blood Count 13.9 x10^3/uL (4.0-11.0) Red Blood Count 3.34 x10^6/uL (3.50-5.40) Hemoglobin 10.0 g/dL (12.0-15.5) Hematocrit 28.8 % (36.0-47.0) Mean Corpuscular Volume 86 fL (79-100) Mean Corpuscular Hemoglobin 30 pg (25-35) Mean Corpuscular Hemoglobin Concent 35 g/dL (31-37) Red Cell Distribution Width 14.4 % (11.5-14.5) Platelet Count 375 x10^3/uL (140-400) Neutrophils (%) (Auto) 67 % (31-73) Lymphocytes (%) (Auto) 19 % (24-48) Monocytes (%) (Auto) 8 % (0-9) Eosinophils (%) (Auto) 3 % (0-3) Basophils (%) (Auto) 3 % (0-3) Neutrophils # (Auto) 9.3 x10^3/uL (1.8-7.7) Lymphocytes # (Auto) 2.6 x10^3/uL (1.0-4.8) Monocytes # (Auto) 1.1 x10^3/uL (0.0-1.1) Eosinophils # (Auto) 0.4 x10^3/uL (0.0-0.7) Basophils # (Auto) 0.4 x10^3/uL (0.0-0.2) Sodium Level 139 mmol/L (136-145) Potassium Level 3.4 mmol/L (3.5-5.1) Chloride Level 100 mmol/L (98-107) Carbon Dioxide Level 24 mmol/L (21-32) Anion Gap 15 (6-14) Blood Urea Nitrogen 41 mg/dL (7-20) Creatinine 3.7 mg/dL (0.6-1.0) Estimated GFR (Cockcroft-Gault) 13.2 Glucose Level 230 mg/dL (70-99) Calcium Level 10.0 mg/dL (8.5-10.1) Triglycerides Level 703 mg/dL (0-150) Microbiology 04/02/21 Urine Culture - Final, Complete 04/02/21 Blood Culture - Final, Complete NO GROWTH AFTER 5 DAYS 03/16/21 Gram Stain Evaluation - Final, Complete 03/16/21 Respiratory Culture - Final, Complete 03/16/21 Antimicrobic Susceptibility - Final, Complete Medications Current Medications Ondansetron HCl (Zofran Odt) 4 mg 1X ONCE PO Last administered on 02/06/21at 23:57; Start 02/06/21 at 23:30; Stop 02/06/21 at 23:31; Status DC Haloperidol Lactate (Haldol Inj) 2.5 mg 1X ONCE IM ; Start 02/07/21 at 02:30; Stop 02/07/21 at 03:56; Status DC Sodium Chloride 1,000 ml @ 1,000 mls/hr 1X ONCE IV Last administered on 02/07/21at 03:41; Start 02/07/21 at 02:30; Stop 02/07/21 at 03:29; Status DC Hydromorphone HCl (Dilaudid) 1 mg 1X ONCE IVP Last administered on 02/07/21at 04:13; Start 02/07/21 at 04:30; Stop 02/07/21 at 04:31; Status DC Sodium Chloride 1,000 ml @ 1,000 mls/hr 1X ONCE IV Last administered on 02/07/21at 10:39; Start 02/07/21 at 06:30; Stop 02/07/21 at 07:29; Status DC Insulin Human Regular 100 unit/ Sodium Chloride 101 ml @ 0 mls/hr CONT PRN PRN IV PER PROTOCOL; Start 02/07/21 at 06:00; Stop 02/07/21 at 16:54; Status DC Potassium Chloride/Water 100 ml @ 100 mls/hr PRN Q1HR PRN IV SEE COMMENTS; Start 02/07/21 at 06:00; Stop 02/07/21 at 16:54; Status DC Potassium Chloride/Water 100 ml @ 100 mls/hr PRN Q1HR PRN IV SEE COMMENTS; Start 02/07/21 at 06:00; Stop 02/07/21 at 16:54; Status DC Potassium Chloride/Water 100 ml @ 100 mls/hr PRN Q1HR PRN IV SEE COMMENTS; Start 02/07/21 at 06:00; Stop 02/07/21 at 16:54; Status DC Insulin Human Regular 100 ml @ 10 mls/hr 1X ONCE IV Last administered on 02/07/21at 09:31; Start 02/07/21 at 06:30; Stop 02/07/21 at 16:54; Status DC Sennosides (Senna) 17.2 mg PRN BID PRN PO CONSTIPATION Last administered on 02/22/21at 08:29; Start 02/07/21 at 08:45 Docusate Sodium (Colace) 100 mg PRN DAILY PRN PO HARD STOOLS; Start 02/07/21 at 08:45; Stop 02/23/21 at 10:47; Status DC Ondansetron HCl (Zofran) 4 mg PRN Q6HRS PRN IVP NAUSEA/VOMITING 1ST CHOICE Last administered on 04/07/21at 22:49; Start 02/07/21 at 08:45 Dextrose (Dextrose 50%-Water Syringe) 12.5 gm PRN Q15MIN PRN IV SEE COMMENTS; Start 02/07/21 at 08:45; Stop 02/08/21 at 16:56; Status DC Sodium Chloride 1,000 ml @ 200 mls/hr Q5H IV Last administered on 02/08/21at 04:05; Start 02/07/21 at 08:45; Stop 02/08/21 at 08:44; Status DC Acetaminophen (Tylenol) 650 mg PRN Q4HRS PRN PO FEVER > 101 Last administered on 02/13/21at 21:35; Start 02/07/21 at 08:45; Stop 02/17/21 at 10:45; Status DC Prochlorperazine Edisylate (Compazine) 10 mg PRN Q6HRS PRN IV NAUSEA/VOMITING 2ND CHOICE Last administered on 04/08/21at 04:05; Start 02/07/21 at 08:45 Insulin Glargine (Lantus Syringe) 5 unit BID SQ Last administered on 02/08/21at 10:24; Start 02/07/21 at 17:00; Stop 02/08/21 at 20:11; Status DC Insulin Human Lispro (HumaLOG) 0-7 UNITS Q4HRS SQ Last administered on 02/08/21at 00:00; Start 02/07/21 at 20:00; Stop 02/08/21 at 00:50; Status DC Dextrose (Dextrose 50%-Water Syringe) 12.5 gm PRN Q15MIN PRN IV SEE COMMENTS; Start 02/07/21 at 17:00; Stop 02/17/21 at 10:45; Status DC Ondansetron HCl (Zofran) 4 mg 1X ONCE IVP Last administered on 02/07/21at 20:06; Start 02/07/21 at 20:00; Stop 02/07/21 at 20:07; Status DC Insulin Human Lispro (HumaLOG) 0-9 UNITS Q4HRS SQ Last administered on 02/13/21at 17:36; Start 02/08/21 at 04:00; Stop 02/13/21 at 21:44; Status DC Metoclopramide HCl (Reglan Vial) 10 mg PRN Q6HRS PRN IVP NAUSEA/VOMITING 3RD CHOICE Last administered on 02/12/21at 15:51; Start 02/08/21 at 00:45 Labetalol HCl (Normodyne Iv Push) 10 mg PRN Q2HR PRN IVP HYPERTENSION, 1st choice Last administered on 04/08/21at 05:11; Start 02/08/21 at 00:45 Acetaminophen (Tylenol Supp) 650 mg PRN Q6HRS PRN [place] FEVER > 101; Start 02/08/21 at 01:45; Stop 02/17/21 at 10:45; Status DC Lorazepam (Ativan Inj) 0.5 mg PRN Q6HRS PRN IVP ANXIETY / AGITATION Last administered on 04/01/21at 15:32; Start 02/08/21 at 10:00 Enalaprilat (Vasotec Inj) 0.625 mg Q6HRS IVP Last administered on 02/09/21at 13:42; Start 02/08/21 at 16:15; Stop 02/09/21 at 16:01; Status DC Insulin Glargine (Lantus Syringe) 15 unit BID SQ Last administered on 02/17/21at 20:29; Start 02/08/21 at 21:00; Stop 02/18/21 at 08:09; Status DC Insulin Human Lispro (HumaLOG) 3 units TIDAC SQ Last administered on 02/16/21at 09:10; Start 02/09/21 at 07:30; Stop 02/16/21 at 23:51; Status DC Carvedilol (Coreg) 6.25 mg BIDWMEALS PO Last administered on 02/23/21at 08:06; Start 02/08/21 at 20:30; Stop 02/23/21 at 15:50; Status DC Atorvastatin Calcium (Lipitor) 40 mg HS PO Last administered on 04/07/21at 21:07; Start 02/08/21 at 21:00 Lisinopril (Prinivil) 5 mg DAILY PO Last administered on 02/09/21at 09:48; Start 02/09/21 at 09:00; Stop 02/09/21 at 13:04; Status DC Sodium Chloride 1,000 ml @ 100 mls/hr Q10H IV Last administered on 02/16/21at 12:15; Start 02/09/21 at 07:00; Stop 02/17/21 at 15:37; Status DC Enoxaparin Sodium (Lovenox Per Pharmacy Prophylaxis Dosing) 1 each PRN DAILY PRN MC SEE COMMENTS; Start 02/09/21 at 06:45; Stop 03/12/21 at 15:38; Status DC Enoxaparin Sodium (Lovenox 40mg Syringe) 40 mg BID SQ Last administered on 03/08/21at 08:26; Start 02/09/21 at 09:00; Stop 03/08/21 at 13:56; Status DC Lisinopril (Prinivil) 10 mg DAILY PO Last administered on 02/16/21at 09:06; Start 02/10/21 at 09:00; Stop 02/17/21 at 08:29; Status DC Hydromorphone HCl (Dilaudid) 2 mg PRN Q6HRS PRN IVP PAIN Last administered on 02/15/21at 22:00; Start 02/09/21 at 17:15; Stop 02/21/21 at 05:27; Status DC Benzonatate (Tessalon Perle) 100 mg [id number] PO Last administered on 02/16/21at 22:07; Start 02/10/21 at 23:30; Stop 02/17/21 at 10:45; Status DC Guaifenesin (Robitussin Dm) 10 ml PRN Q6HRS PRN PO COUGH Last administered on 02/16/21at 09:06; Start 02/10/21 at 23:30 Remdesivir 200 mg/ Sodium Chloride 210 ml @ 210 mls/hr 1X ONCE IV Last administered on 02/11/21at 14:33; Start 02/11/21 at 13:00; Stop 02/12/21 at 11:55; Status DC Remdesivir 100 mg/ Sodium Chloride 230 ml @ 460 mls/hr Q24H IV ; Start 02/12/21 at 13:00; Stop 02/12/21 at 11:55; Status DC Hydralazine HCl (Apresoline Inj) 10 mg PRN Q4HRS PRN IVP ELEVATED BP, 2nd choice Last administered on 04/08/21at 05:49; Start 02/11/21 at 12:15 Ceftriaxone Sodium (Rocephin) 1 gm Q24H IVP Last administered on 02/11/21at 12:55; Start 02/11/21 at 12:30; Stop 02/12/21 at 11:55; Status DC Dexamethasone Sodium Phosphate (Decadron) 6 mg DAILY IVP Last administered on 02/12/21at 09:34; Start 02/11/21 at 13:00; Stop 02/12/21 at 11:55; Status DC Potassium Chloride (Klor-Con) 40 meq 1X ONCE PO Last administered on 02/13/21at 11:11; Start 02/13/21 at 10:30; Stop 02/13/21 at 10:47; Status DC Potassium Chloride (Klor-Con) 40 meq 1X ONCE PO Last administered on 02/13/21at 13:21; Start 02/13/21 at 12:00; Stop 02/13/21 at 12:01; Status DC Insulin Human Lispro (HumaLOG) 0-9 UNITS QIDACHS SQ Last administered on 02/15/21at 22:01; Start 02/14/21 at 07:30; Stop 02/16/21 at 23:51; Status DC Remdesivir 100 mg/ Sodium Chloride 230 ml @ 460 mls/hr Q24H IV Last administered on 02/18/21at 11:52; Start 02/15/21 at 12:00; Stop 02/18/21 at 12:29; Status DC Dexamethasone Sodium Phosphate (Decadron) 6 mg DAILY IVP Last administered on 02/24/21at 08:12; Start 02/15/21 at 09:00; Stop 02/25/21 at 06:41; Status DC Dexamethasone Sodium Phosphate (Decadron) 6 mg 1X ONCE IVP ; Start 02/14/21 at 12:45; Stop 02/14/21 at 12:46; Status DC Ceftriaxone Sodium (Rocephin) 1 gm Q24H IVP Last administered on 02/22/21at 12:42; Start 02/14/21 at 13:00; Stop 02/23/21 at 07:34; Status DC Azithromycin 250 mg/Sodium Chloride 250 ml @ 250 mls/hr Q24H IV Last administered on 02/18/21at 11:51; Start 02/14/21 at 13:30; Stop 02/18/21 at 14:29; Status DC Dexamethasone Sodium Phosphate (Decadron) 6 mg 1X ONCE IVP Last administered on 02/14/21at 18:17; Start 02/14/21 at 17:15; Stop 02/14/21 at 17:16; Status DC Alteplase, Recombinant (Cathflo For Central Catheter Clearance) 1 mg 1X ONCE INT CAT Last administered on 02/16/21at 08:41; Start 02/16/21 at 08:00; Stop 02/16/21 at 08:01; Status DC Dexmedetomidine HCl 400 mcg/ Sodium Chloride 100 ml @ 0 mls/hr CONT PRN IV PER PROTOCOL Last administered on 02/17/21at 20:27; Start 02/16/21 at 12:00; Stop 02/27/21 at 09:37; Status DC Sodium Chloride 500 ml @ 500 mls/hr 1X PRN PRN IV SEE COMMENTS; Start 02/16/21 at 12:00 Atropine Sulfate (ATROPINE 0.5mg SYRINGE) 0.5 mg PRN Q5MIN PRN IV SEE COMMENTS; Start 02/16/21 at 12:00 Lactobacillus Rhamnosus (Culturelle) 1 cap BID PO Last administered on 02/16/21at 22:02; Start 02/16/21 at 21:00; Stop 02/17/21 at 10:45; Status DC Famotidine (Pepcid Vial) 20 mg BID IVP Last administered on 03/09/21at 09:27; Start 02/16/21 at 21:00; Stop 03/09/21 at 10:41; Status DC Furosemide (Lasix) 20 mg 1X ONCE IVP Last administered on 02/16/21at 18:38; Start 02/16/21 at 18:30; Stop 02/16/21 at 18:34; Status DC Furosemide (Lasix) 20 mg 1X ONCE IVP Last administered on 02/16/21at 22:18; Start 02/16/21 at 22:15; Stop 02/16/21 at 22:16; Status DC Insulin Human Lispro (HumaLOG) 3 units Q6HRS SQ Last administered on 02/18/21at 05:40; Start 02/17/21 at 00:00; Stop 02/18/21 at 08:09; Status DC Insulin Human Lispro (HumaLOG) 0-9 UNITS Q6HRS SQ Last administered on 04/08/21a t 05:38; Start 02/17/21 at 00:00 Lisinopril (Prinivil) 20 mg DAILY PO Last administered on 02/27/21at 09:10; Start 02/17/21 at 09:00; Stop 03/09/21 at 10:43; Status DC Fentanyl Citrate 30 ml @ 0 mls/hr CONT PRN IV SEE PROTOCOL Last administered on 03/15/21at 16:08; Start 02/17/21 at 10:00; Stop 03/15/21 at 23:00; Status DC Propofol 100 ml @ 0 mls/hr CONT PRN IV PER PROTOCOL Last administered on 04/08/21at 02:39; Start 02/17/21 at 10:00 Glycerin/ Hypromellose/ Polyethylene (Artificial Tears) 1 drop PRN Q1HR PRN OU DRY EYE Last administered on 04/05/21at 08:02; Start 02/17/21 at 10:00 Midazolam HCl 100 ml @ 0 mls/hr CONT PRN IV SEE PROTOCOL Last administered on 03/20/21at 17:18; Start 02/17/21 at 10:00 Succinylcholine Chloride (Anectine) 200 mg STK-MED ONCE .ROUTE ; Start 02/17/21 at 09:58; Stop 02/17/21 at 09:58; Status DC Acetaminophen (Tylenol) 650 mg PRN Q6HRS PRN PEG MILD PAIN / TEMP > 100.3'F Last administered on 04/06/21at 21:12; Start 02/17/21 at 10:45 Insulin Glargine (Lantus Syringe) 20 unit BID SQ Last administered on 02/18/21at 20:54; Start 02/18/21 at 09:00; Stop 02/19/21 at 07:47; Status DC Insulin Human Lispro (HumaLOG) 5 units Q6HRS SQ Last administered on 02/19/21at 06:23; Start 02/18/21 at 12:00; Stop 02/19/21 at 07:47; Status DC Insulin Glargine (Lantus Syringe) 25 unit BID SQ Last administered on 02/27/21at 20:42; Start 02/19/21 at 09:00; Stop 02/28/21 at 09:34; Status DC Insulin Human Lispro (HumaLOG) 8 units Q6HRS SQ Last administered on 02/19/21at 11:33; Start 02/19/21 at 12:00; Stop 02/19/21 at 12:32; Status DC Insulin Human Lispro (HumaLOG) 10 units Q6HRS SQ Last administered on 02/20/21at 06:38; Start 02/19/21 at 18:00; Stop 02/20/21 at 08:14; Status DC Insulin Human Lispro (HumaLOG) 12 units Q6HRS SQ Last administered on 02/27/21at 05:41; Start 02/20/21 at 12:00; Stop 02/28/21 at 15:38; Status DC Piperacillin Sod/ Tazobactam Sod (Zosyn Per Pharmacy) 1 each PRN DAILY PRN MC SEE COMMENTS; Start 02/23/21 at 07:45; Stop 03/17/21 at 10:04; Status DC Piperacillin Sod/ Tazobactam Sod 4.5 gm/Sodium Chloride 100 ml @ 200 mls/hr Q6HRS IV Last administered on 03/07/21at 06:12; Start 02/23/21 at 08:00; Stop 03/07/21 at 08:18; Status DC Docusate Sodium (Colace Solution) 100 mg BID PO Last administered on 04/07/21at 21:07; Start 02/23/21 at 12:00 Amlodipine Besylate (Norvasc) 5 mg DAILY NG Last administered on 02/27/21at 09:10; Start 02/24/21 at 09:00; Stop 03/09/21 at 10:43; Status DC Methylprednisolone Sodium Succinate (SOLU-Medrol 125MG VIAL) 80 mg Q8HRS IV Last administered on 02/26/21at 05:52; Start 02/25/21 at 09:00; Stop 02/26/21 at 07:09; Status DC Succinylcholine Chloride (Anectine) 200 mg STK-MED ONCE .ROUTE ; Start 02/17/21 at 10:00; Stop 02/25/21 at 08:40; Status DC Dexamethasone Sodium Phosphate (Decadron) 4 mg 1X ONCE IVP ; Start 02/26/21 at 10:00; Stop 02/26/21 at 07:15; Status DC Dexamethasone Sodium Phosphate (Decadron) 2 mg 1X ONCE IVP ; Start 02/27/21 at 09:00; Stop 02/26/21 at 07:15; Status DC Dexmedetomidine HCl 400 mcg/ Sodium Chloride 100 ml @ 0 mls/hr CONT PRN IV PER PROTOCOL Last administered on 04/08/21at 05:39; Start 02/27/21 at 09:45 Sodium Chloride 500 ml @ 500 mls/hr 1X PRN PRN IV SEE COMMENTS; Start 02/27/21 at 09:45; Status Cancel Alteplase, Recombinant (Cathflo) 2 mg 1X ONCE INT CAT Last administered on 02/27/21at 11:20; Start 02/27/21 at 11:00; Stop 02/27/21 at 11:01; Status DC Alteplase, Recombinant (Cathflo For Central Catheter Clearance) 1 mg 1X ONCE INT CAT Last administered on 02/27/21at 15:18; Start 02/27/21 at 14:30; Stop 02/27/21 at 14:36; Status DC Alteplase, Recombinant (Cathflo For Central Catheter Clearance) 1 mg 1X ONCE INT CAT Last administered on 02/27/21at 15:19; Start 02/27/21 at 14:30; Stop 02/27/21 at 14:36; Status DC Dextrose (Dextrose 50%-Water Syringe) 25 gm STK-MED ONCE IV ; Start 02/27/21 at 23:48; Stop 02/27/21 at 23:48; Status DC Dextrose (Dextrose 50%-Water Syringe) 25 gm 1X ONCE IV Last administered on 02/27/21at 23:55; Start 02/28/21 at 00:00; Stop 02/28/21 at 00:01; Status DC Insulin Glargine (Lantus Syringe) 20 unit BID SQ Last administered on 02/28/21at 21:06; Start 02/28/21 at 10:00; Stop 03/01/21 at 14:18; Status DC Dextrose (Dextrose 50%-Water Syringe) 12.5 gm PRN Q15MIN PRN IV SEE COMMENTS Last administered on 03/01/21at 12:55; Start 03/01/21 at 13:00 Insulin Glargine (Lantus Syringe) 15 unit QHS SQ Last administered on 03/05/21at 21:26; Start 03/01/21 at 21:00; Stop 03/06/21 at 07:17; Status DC Nystatin (Nystop) 1 reji BID TP Last administered on 04/07/21at 21:09; Start 03/02/21 at 21:00 Vancomycin HCl 1 gm/Sodium Chloride 250 ml @ 250 mls/hr Q12H IV ; Start 03/04/21 at 20:00; Status UNV Vancomycin HCl 2 gm/Sodium Chloride 500 ml @ 250 mls/hr 1X ONCE IV Last administered on 03/04/21at 19:26; Start 03/04/21 at 19:00; Stop 03/04/21 at 20:59; Status DC Vancomycin HCl (Vanco Per Pharmacy) 1 each PRN DAILY PRN MC SEE COMMENTS Last administered on 03/04/21at 19:47; Start 03/04/21 at 18:30; Stop 03/05/21 at 08:59; Status DC Vancomycin HCl 1.5 gm/Sodium Chloride 500 ml @ 250 mls/hr Q12H IV ; Start 03/05/21 at 07:30; Stop 03/05/21 at 08:58; Status DC Vancomycin HCl (Vancomycin Trough Level) 1 each 1X ONCE MC ; Start 03/06/21 at 07:00; Stop 03/06/21 at 07:01; Status Cancel Linezolid (Zyvox) 600 mg BID PO Last administered on 03/11/21at 20:33; Start 03/05/21 at 09:00; Stop 03/12/21 at 07:00; Status DC Insulin Glargine (Lantus Syringe) 15 unit BID SQ ; Start 03/06/21 at 09:00; Stop 03/06/21 at 07:25; Status DC Insulin Glargine (Lantus Syringe) 5 unit BID SQ Last administered on 04/07/21at 21:10; Start 03/06/21 at 09:00 Norepinephrine Bitartrate 8 mg/ Dextrose 258 ml @ 21.711 mls/ hr CONT PRN IV PER PROTOCOL Last administered on 03/19/21at 18:45; Start 03/06/21 at 13:45 Vecuronium [place] (Norcuron Bolus) 6 mg PRN Q2HRS PRN IV VENTILATOR COMPLIANCE Last administered on 03/16/21at 10:16; Start 03/06/21 at 14:30 Sodium Chloride 1,000 ml @ 1,000 mls/hr 1X ONCE IV Last administered on 03/06/21at 16:00; Start 03/06/21 at 16:00; Stop 03/06/21 at 19:16; Status DC Sodium Chloride 1,000 ml @ 1,000 mls/hr 1X ONCE IV Last administered on 03/06/21at 20:37; Start 03/06/21 at 19:15; Stop 03/06/21 at 20:14; Status DC Piperacillin Sod/ Tazobactam Sod 2.25 gm/Sodium Chloride 50 ml @ 100 mls/hr Q8HRS IV Last administered on 03/17/21at 05:58; Start 03/07/21 at 14:00; Stop 03/17/21 at 08:03; Status DC Fluconazole/ Sodium Chloride 100 ml @ 100 mls/hr Q24H IV Last administered on 03/16/21at 08:29; Start 03/07/21 at 09:00; Stop 03/17/21 at 08:03; Status DC Lidocaine HCl (Buffered Lidocaine 1%) 6 ml 1X ONCE INJ Last administered on 03/07/21at 14:10; Start 03/07/21 at 13:15; Stop 03/07/21 at 13:16; Status DC Lidocaine HCl (Buffered Lidocaine 1%) 3 ml STK-MED ONCE .ROUTE ; Start 03/07/21 at 13:25; Stop 03/07/21 at 13:25; Status DC Info (PHARMACY MONITORING -- do not chart) 1 each PRN DAILY PRN MC SEE COMMENTS; Start 03/07/21 at 20:45; Stop 03/10/21 at 10:23; Status DC Enoxaparin Sodium (Lovenox 30mg Syringe) 30 mg Q24H SQ Last administered on 03/12/21at 09:04; Start 03/08/21 at 09:00; Stop 03/12/21 at 15:38; Status DC Famotidine (Pepcid Vial) 20 mg DAILY IVP Last administered on 04/07/21at 08:06; Start 03/10/21 at 09:00 Sodium Chloride 1,000 ml @ 1,000 mls/hr Q1H PRN IV hypotension; Start 03/09/21 at 18:15; Stop 03/10/21 at 00:14; Status DC Albumin Human 200 ml @ 200 mls/hr 1X PRN PRN IV Hypotension Last administered on 03/09/21at 19:40; Start 03/09/21 at 18:15; Stop 03/10/21 at 00:14; Status DC Sodium Chloride 1,000 ml @ 400 mls/hr Q2H30M PRN IV PATENCY; Start 03/09/21 at 18:15; Stop 03/10/21 at 06:14; Status DC Info (PHARMACY MONITORING -- do not chart) 1 each PRN DAILY PRN MC SEE COMMENTS; Start 03/09/21 at 18:15; Stop 03/10/21 at 10:23; Status DC Info (PHARMACY MONITORING -- do not chart) 1 each PRN DAILY PRN MC SEE COMMENTS; Start 03/09/21 at 18:15; Status Cancel Vitamin A/Vitamin D (Vitamin A & D Ointment) 1 reji PRN Q1HR PRN TP SKIN PROTECTION Last administered on 03/20/21at 09:34; Start 03/10/21 at 01:45 Sodium Chloride 1,000 ml @ 1,000 mls/hr Q1H PRN IV hypotension; Start 03/11/21 at 08:15; Stop 03/11/21 at 14:14; Status DC Albumin Human 200 ml @ 200 mls/hr 1X PRN PRN IV Hypotension; Start 03/11/21 at 08:15; Stop 03/11/21 at 14:14; Status DC Sodium Chloride (Normal Saline Flush) 10 ml 1X PRN PRN IV AP catheter pack; Start 03/11/21 at 08:15; Stop 03/12/21 at 08:14; Status DC Sodium Chloride (Normal Saline Flush) 10 ml 1X PRN PRN IV P[employer]PER[employer]OR catheter pack; Start 03/11/21 at 08:15; Stop 03/12/21 at 08:14; Status DC Sodium Chloride 1,000 ml @ 400 mls/hr Q2H30M PRN IV PATENCY; Start 03/11/21 at 08:15; Stop 03/11/21 at 20:14; Status DC Info (PHARMACY MONITORING -- do not chart) 1 each PRN DAILY PRN MC SEE COMMENTS; Start 03/11/21 at 08:15; Status UNV Info (PHARMACY MONITORING -- do not chart) 1 each PRN DAILY PRN MC SEE COMMENTS; Start 03/11/21 at 08:15; Status Cancel Heparin Sodium (Porcine) (Heparin Sodium) 5,000 unit Q8HRS SQ Last administered on 04/08/21at 05:38; Start 03/13/21 at 06:00 Multivitamins/ Minerals Therapeutic (Centrum Multivit-Mineral Liq) 5 ml DAILY PEG Last administered on 04/07/21at 08:07; Start 03/14/21 at 09:00 Info (PHARMACY MONITORING -- do not chart) 1 each PRN DAILY PRN MC SEE COMMENTS; Start 03/13/21 at 17:00; Status Cancel Piperacillin Sod/ Tazobactam Sod 3.375 gm/Sodium Chloride 50 ml @ 100 mls/hr Q6HRS IV ; Start 03/14/21 at 18:00; Status Cancel Fentanyl Citrate (Fentanyl 2ml Vial) 25 mcg PRN Q5MIN PRN IVP MILD PAIN 1-3; Start 03/17/21 at 06:00; Stop 03/17/21 at 19:00; Status DC Fentanyl Citrate (Fentanyl 2ml Vial) 50 mcg PRN Q5MIN PRN IVP MODERATE PAIN 4- 6; Start 03/17/21 at 06:00; Stop 03/17/21 at 19:00; Status DC Morphine Sulfate (Morphine Sulfate) 1 mg PRN Q10MIN PRN IVP SEVERE PAIN 7-10; Start 03/17/21 at 06:00; Stop 03/17/21 at 19:00; Status DC Ringer's Solution 1,000 ml @ 30 mls/hr Q24H IV ; Start 03/17/21 at 06:00; Stop 03/17/21 at 17:59; Status DC Hydromorphone HCl (Dilaudid) 0.5 mg PRN Q10MIN PRN IVP SEVERE PAIN 7-10, 2nd CHOICE; Start 03/17/21 at 06:00; Stop 03/17/21 at 19:00; Status DC Fentanyl Citrate 55 ml @ 0 mls/hr CONT PRN IV SEE PROTOCOL Last administered on 04/04/21at 19:36; Start 03/15/21 at 16:30; Stop 04/08/21 at 07:07; Status DC Fentanyl Citrate 55 ml @ 2 mls/hr CONT PRN IV SEE PROTOCOL; Start 03/15/21 at 21:45; Stop 03/15/21 at 21:34; Status DC Linezolid/Dextrose 300 ml @ 300 mls/hr Q12HR IV Last administered on 03/17/21at 21:44; Start 03/16/21 at 10:00; Stop 03/18/21 at 07:37; Status DC Sodium Chloride 1,000 ml @ 1,000 mls/hr Q1H PRN IV hypotension; Start 03/16/21 at 12:45; Stop 03/16/21 at 18:44; Status DC Albumin Human 200 ml @ 200 mls/hr 1X PRN PRN IV Hypotension; Start 03/16/21 at 12:45; Stop 03/16/21 at 18:44; Status DC Sodium Chloride (Normal Saline Flush) 10 ml 1X PRN PRN IV AP catheter pack; Start 03/16/21 at 12:45; Stop 03/17/21 at 12:44; Status DC Sodium Chloride (Normal Saline Flush) 10 ml 1X PRN PRN IV [employer] catheter pack; Start 03/16/21 at 12:45; Stop 03/17/21 at 12:44; Status DC Sodium Chloride 1,000 ml @ 400 mls/hr Q2H30M PRN IV PATENCY; Start 03/16/21 at 12:45; Stop 03/17/21 at 00:44; Status DC Info (PHARMACY MONITORING -- do not chart) 1 each PRN DAILY PRN MC SEE COMMENTS; Start 03/16/21 at 12:45; Status UNV Info (PHARMACY MONITORING -- do not chart) 1 each PRN DAILY PRN MC SEE COMMENTS; Start 03/16/21 at 12:45; Stop 03/18/21 at 10:14; Status DC Rocuronium [place] (Zemuron) 50 mg STK-MED ONCE .ROUTE ; Start 03/17/21 at 10:09; Stop 03/17/21 at 10:09; Status DC Bupivacaine HCl/ Epinephrine Bitart (Sensorcain-Epi 0.5%-1:224476 Mpf) 30 ml STK-MED ONCE .ROUTE ; Start 03/17/21 at 10:47; Stop 03/17/21 at 10:47; Status DC Cellulose (Surgicel Fibrillar 1x2) 1 each STK-MED ONCE .ROUTE Last administered on 03/17/21at 11:56; Start 03/17/21 at 10:47; Stop 03/17/21 at 10:47; Status DC Phenylephrine HCl (PHENYLEPHRINE in 0.9% NACL PF) 1 mg STK-MED ONCE IV ; Start 03/17/21 at 10:56; Stop 03/17/21 at 10:56; Status DC Ephedrine Sulfate (ePHEDrine PF IN SALINE SYRINGE) 50 mg STK-MED ONCE IV ; Start 03/17/21 at 10:56; Stop 03/17/21 at 10:56; Status DC Rocuronium [place] (Zemuron) 50 mg STK-MED ONCE .ROUTE ; Start 03/17/21 at 10:56; Stop 03/17/21 at 10:56; Status DC Albuterol Sulfate (Ventolin Hfa) 60 puff STK-MED ONCE INH ; Start 03/17/21 at 11:29; Stop 03/17/21 at 11:29; Status DC Rocuronium [place] (Zemuron) 50 mg STK-MED ONCE .ROUTE ; Start 03/17/21 at 11:39; Stop 03/17/21 at 11:39; Status DC Sevoflurane (Ultane) 30 ml STK-MED ONCE IH ; Start 03/17/21 at 12:20; Stop 03/17/21 at 12:20; Status DC Sodium Chloride 1,000 ml @ 1,000 mls/hr Q1H PRN IV hypotension; Start 03/17/21 at 13:30; Stop 03/17/21 at 19:29; Status DC Albumin Human 200 ml @ 200 mls/hr 1X PRN PRN IV Hypotension; Start 03/17/21 at 13:30; Stop 03/17/21 at 19:29; Status DC Acetaminophen (Tylenol) 500 mg 1X PRN PRN PO MILD PAIN / TEMP > 100.3'F; Start 03/17/21 at 13:30; Stop 03/18/21 at 13:29; Status DC Diphenhydramine HCl (Benadryl) 25 mg 1X PRN PRN IV ITCHING; Start 03/17/21 at 13:30; Stop 03/18/21 at 13:29; Status DC Diphenhydramine HCl (Benadryl) 25 mg 1X PRN PRN IV ITCHING; Start 03/17/21 at 13:30; Stop 03/18/21 at 13:29; Status DC Sodium Chloride 1,000 ml @ 400 mls/hr Q2H30M PRN IV PATENCY; Start 03/17/21 at 13:30; Stop 03/18/21 at 01:29; Status DC Info (PHARMACY MONITORING -- do not chart) 1 each PRN DAILY PRN MC SEE COMMENTS; Start 03/17/21 at 13:30; Status UNV Info (PHARMACY MONITORING -- do not chart) 1 each PRN DAILY PRN MC SEE COMMENTS; Start 03/17/21 at 13:30; Status Cancel Albumin Human 100 ml @ 100 mls/hr 1X ONCE IV Last administered on 03/17/21at 15:40; Start 03/17/21 at 14:15; Stop 03/17/21 at 15:19; Status DC Albumin Human 50 ml @ 50 mls/hr 1X ONCE IV ; Start 03/17/21 at 14:15; Stop 03/17/21 at 15:08; Status DC Albumin Human 100 ml @ 100 mls/hr 1X ONCE IV Last administered on 03/17/21at 15:41; Start 03/17/21 at 14:15; Stop 03/17/21 at 15:19; Status DC Multi-Ingred Cream/Lotion/Oil/ Oint (Artificial Tears Eye Ointment) 1 reji PRN Q1HR PRN OU DRY EYE, 1ST CHOICE Last administered on 03/20/21at 15:55; Start 03/17/21 at 17:30 Sodium Chloride 1,000 ml @ 1,000 mls/hr Q1H PRN IV hypotension; Start 03/18/21 at 11:00; Stop 03/18/21 at 16:59; Status DC Albumin Human 200 ml @ 200 mls/hr 1X PRN PRN IV Hypotension Last administered on 03/18/21at 12:49; Start 03/18/21 at 11:00; Stop 03/18/21 at 16:59; Status DC Sodium Chloride 1,000 ml @ 400 mls/hr Q2H30M PRN IV PATENCY; Start 03/18/21 at 11:00; Stop 03/18/21 at 22:59; Status DC Info (PHARMACY MONITORING -- do not chart) 1 each PRN DAILY PRN MC SEE COMMENT S; Start 03/18/21 at 11:00; Status Cancel Info (PHARMACY MONITORING -- do not chart) 1 each PRN DAILY PRN MC SEE COMMENTS; Start 03/18/21 at 11:00; Stop 03/21/21 at 12:46; Status DC Meropenem 1 gm/ Sodium Chloride 100 ml @ 200 mls/hr Q24H IV Last administered on 04/07/21at 17:42; Start 03/18/21 at 17:00 Sodium Chloride 1,000 ml @ 1,000 mls/hr Q1H PRN IV hypotension; Start 03/19/21 at 17:15; Stop 03/19/21 at 23:14; Status DC Albumin Human 200 ml @ 200 mls/hr 1X PRN PRN IV Hypotension; Start 03/19/21 at 17:15; Stop 03/19/21 at 23:14; Status DC Sodium Chloride 1,000 ml @ 400 mls/hr Q2H30M PRN IV PATENCY; Start 03/19/21 at 17:15; Stop 03/20/21 at 05:14; Status DC Info (PHARMACY MONITORING -- do not chart) 1 each PRN DAILY PRN MC SEE COMMENTS; Start 03/19/21 at 17:15; Status UNV Info (PHARMACY MONITORING -- do not chart) 1 each PRN DAILY PRN MC SEE COMMENTS; Start 03/19/21 at 17:15; Status Cancel Sodium Chloride 1,000 ml @ 1,000 mls/hr Q1H PRN IV hypotension; Start 03/20/21 at 12:30; Stop 03/20/21 at 18:29; Status DC Albumin Human 200 ml @ 200 mls/hr 1X PRN PRN IV Hypotension Last administered on 03/20/21at 14:04; Start 03/20/21 at 12:30; Stop 03/20/21 at 18:29; Status DC Sodium Chloride (Normal Saline Flush) 10 ml 1X PRN PRN IV AP catheter pack; Start 03/20/21 at 12:30; Stop 03/21/21 at 12:29; Status DC Sodium Chloride (Normal Saline Flush) 10 ml 1X PRN PRN IV P[employer]PER[employer]OR catheter pack; Start 03/20/21 at 12:30; Stop 03/21/21 at 12:29; Status DC Sodium Chloride 1,000 ml @ 400 mls/hr Q2H30M PRN IV PATENCY; Start 03/20/21 at 12:30; Stop 03/21/21 at 00:29; Status DC Info (PHARMACY MONITORING -- do not chart) 1 each PRN DAILY PRN MC SEE C OMMENTS; Start 03/20/21 at 12:30; Stop 03/21/21 at 12:47; Status DC Info (PHARMACY MONITORING -- do not chart) 1 each PRN DAILY PRN MC SEE COMMENTS; Start 03/20/21 at 12:30; Status Cancel Cefazolin Sodium/ Dextrose 50 ml @ 100 mls/hr 1X PREOP ONCE IV ; Start 03/23/21 at 13:00; Stop 03/22/21 at 06:30; Status DC Fentanyl Citrate (Fentanyl 2ml Vial) 25 mcg PRN Q5MIN PRN IVP MILD PAIN 1-3; Start 03/23/21 at 06:00; Stop 03/24/21 at 05:59; Status DC Fentanyl Citrate (Fentanyl 2ml Vial) 50 mcg PRN Q5MIN PRN IVP MODERATE PAIN 4- 6; Start 03/23/21 at 06:00; Stop 03/24/21 at 05:59; Status DC Ringer's Solution 1,000 ml @ 30 mls/hr Q24H IV ; Start 03/23/21 at 06:00; Stop 03/23/21 at 17:59; Status Cancel Sodium Chloride 1,000 ml @ 1,000 mls/hr Q1H PRN IV hypotension; Start 03/21/21 at 14:45; Stop 03/21/21 at 20:44; Status DC Albumin Human 200 ml @ 200 mls/hr 1X PRN PRN IV Hypotension Last administered on 03/21/21at 15:36; Start 03/21/21 at 14:45; Stop 03/21/21 at 20:44; Status DC Sodium Chloride 1,000 ml @ 400 mls/hr Q2H30M PRN IV PATENCY; Start 03/21/21 at 14:45; Stop 03/22/21 at 02:44; Status DC Info (PHARMACY MONITORING -- do not chart) 1 each PRN DAILY PRN MC SEE COMMENTS; Start 03/21/21 at 15:30; Status UNV Info (PHARMACY MONITORING -- do not chart) 1 each PRN DAILY PRN MC SEE COMMENTS; Start 03/21/21 at 15:30; Status Cancel Daptomycin 480 mg/ Sodium Chloride 50 ml @ 100 mls/hr [id number]@1900 IV Last administered on 03/21/21at 20:17; Start 03/21/21 at 19:00; Stop 03/22/21 at 13:28; Status DC Micafungin Sodium 100 mg/Dextrose 100 ml @ 100 mls/hr Q24H IV Last administered on 03/24/21at 16:36; Start 03/21/21 at 18:00; Stop 03/25/21 at 10:27; Status DC Daptomycin 480 mg/ Sodium Chloride 50 ml @ 100 mls/hr QMWF IV Last administered on 03/25/21at 19:52; Start 03/23/21 at 16:00; Stop 03/26/21 at 10:29; Status DC Sodium Chloride 1,000 ml @ 1,000 mls/hr Q1H PRN IV hypotension; Start 03/23/21 at 10:45; Stop 03/23/21 at 16:44; Status DC Sodium Chloride 1,000 ml @ 400 mls/hr Q2H30M PRN IV PATENCY; Start 03/23/21 at 10:45; Stop 03/23/21 at 22:44; Status DC Info (PHARMACY MONITORING -- do not chart) 1 each PRN DAILY PRN MC SEE COM MENTS; Start 03/23/21 at 10:45; Stop 03/25/21 at 12:38; Status DC Cefazolin Sodium/ Dextrose (Ancef 2gm Premix) 2 gm STK-MED ONCE IV ; Start 03/23/21 at 13:00; Stop 03/24/21 at 11:58; Status DC Sodium Chloride 1,000 ml @ 1,000 mls/hr Q1H PRN IV hypotension; Start 03/25/21 at 12:30; Stop 03/25/21 at 18:29; Status DC Albumin Human 200 ml @ 200 mls/hr 1X PRN PRN IV Hypotension; Start 03/25/21 at 12:30; Stop 03/25/21 at 18:29; Status DC Sodium Chloride (Normal Saline Flush) 10 ml 1X PRN PRN IV AP catheter pack; Start 03/25/21 at 12:30; Stop 03/26/21 at 12:29; Status DC Sodium Chloride (Normal Saline Flush) 10 ml 1X PRN PRN IV P[employer]OR catheter pack; Start 03/25/21 at 12:30; Stop 03/26/21 at 12:29; Status DC Sodium Chloride 1,000 ml @ 400 mls/hr Q2H30M PRN IV PATENCY; Start 03/25/21 at 12:30; Stop 03/26/21 at 00:29; Status DC Info (PHARMACY MONITORING -- do not chart) 1 each PRN DAILY PRN MC SEE COMMENTS; Start 03/25/21 at 12:30; Stop 03/25/21 at 12:38; Status DC Info (PHARMACY MONITORING -- do not chart) 1 each PRN DAILY PRN MC SEE COMMENTS; Start 03/25/21 at 12:30; Status Cancel Furosemide (Lasix) 40 mg 1X ONCE IVP Last administered on 03/26/21at 09:54; Start 03/26/21 at 10:00; Stop 03/26/21 at 10:01; Status DC Fentanyl Citrate (Fentanyl 2ml Vial) 25 mcg PRN Q5MIN PRN IVP MILD PAIN 1-3; Start 03/27/21 at 06:00; Stop 03/28/21 at 05:59; Status DC Fentanyl Citrate (Fentanyl 2ml Vial) 50 mcg PRN Q5MIN PRN IVP MODERATE PAIN 4- 6; Start 03/27/21 at 06:00; Stop 03/28/21 at 05:59; Status DC Morphine Sulfate (Morphine Sulfate) 1 mg PRN Q10MIN PRN IVP SEVERE PAIN 7-10; Start 03/27/21 at 06:00; Stop 03/28/21 at 05:59; Status DC Ringer's Solution 1,000 ml @ 30 mls/hr Q24H IV ; Start 03/27/21 at 06:00; Stop 03/27/21 at 17:59; Status DC Hydromorphone HCl (Dilaudid) 0.5 mg PRN Q10MIN PRN IVP SEVERE PAIN 7-10, 2nd CHOICE; Start 03/27/21 at 06:00; Stop 03/28/21 at 05:59; Status DC Prochlorperazine Edisylate (Compazine) 5 mg PACU PRN PRN IVP NAUSEA, MRX1; Start 03/27/21 at 06:00; Stop 03/28/21 at 05:59; Status DC Info (PHARMACY MONITORING -- do not chart) 1 each PRN DAILY PRN MC SEE COMMENTS; Start 03/27/21 at 09:45; Stop 03/30/21 at 12:58; Status DC Info (PHARMACY MONITORING -- do not chart) 1 each PRN DAILY PRN MC SEE COMMENTS; Start 03/27/21 at 09:45; Status UNV Bupivacaine HCl/ Epinephrine Bitart (Sensorcain-Epi 0.5% Kit) 30 ml STK-MED ONCE .ROUTE Last administered on 03/27/21at 13:12; Start 03/27/21 at 10:05; Stop 03/27/21 at 10:05; Status DC Rocuronium [place] (Zemuron) 50 mg STK-MED ONCE .ROUTE ; Start 03/27/21 at 11:05; Stop 03/27/21 at 11:05; Status DC Propofol (Diprivan) 200 mg STK-MED ONCE IV ; Start 03/27/21 at 12:02; Stop 03/27/21 at 12:03; Status DC Rocuronium [place] (Zemuron) 50 mg STK-MED ONCE .ROUTE ; Start 03/27/21 at 13:16; Stop 03/27/21 at 13:17; Status DC Fentanyl Citrate (Fentanyl 2ml Vial) 100 mcg STK-MED ONCE .ROUTE ; Start 03/27/21 at 13:18; Stop 03/27/21 at 13:18; Status DC Phenylephrine HCl (PHENYLEPHRINE in 0.9% NACL PF) 1 mg STK-MED ONCE IV ; Start 03/27/21 at 13:46; Stop 03/27/21 at 13:46; Status DC Neostigmine [place] (Neostigmine Methylsulfate) 5 mg STK-MED ONCE .ROUTE ; Start 03/27/21 at 14:06; Stop 03/27/21 at 14:07; Status DC Glycopyrrolate (Robinul) 1 mg STK-MED ONCE .ROUTE ; Start 03/27/21 at 14:07; Stop 03/27/21 at 14:07; Status DC Sevoflurane (Ultane) 60 ml STK-MED ONCE IH ; Start 03/27/21 at 14:19; Stop 03/27/21 at 14:20; Status DC Sodium Chloride (Normal Saline Flush) 3 ml QSHIFT PRN IV AFTER MEDS AND BLOOD DRAWS; Start 03/27/21 at 14:30 Naloxone HCl (Narcan) 0.4 mg PRN Q2MIN PRN IV SEE INSTRUCTIONS; Start 03/27/21 at 14:30 Sodium Chloride 1,000 ml @ 25 mls/hr Q24H IV Last administered on 03/28/21at 14:30; Start 03/27/21 at 14:30; Stop 03/29/21 at 14:07; Status DC Furosemide (Lasix) 40 mg 1X ONCE IVP Last administered on 03/29/21at 15:22; Start 03/29/21 at 15:00; Stop 03/29/21 at 15:02; Status DC Info (PHARMACY MONITORING -- do not chart) 1 each PRN DAILY PRN MC SEE COMMENTS; Start 03/30/21 at 13:00; Status Cancel Albumin Human 100 ml @ 100 mls/hr 1X ONCE IV Last administered on 03/30/21at 15:44; Start 03/30/21 at 15:45; Stop 03/30/21 at 16:44; Status DC Amlodipine Besylate (Norvasc) 10 mg DAILY PO Last administered on 04/07/21at 08:09; Start 03/31/21 at 09:00 Haloperidol Lactate (Haldol Inj) 5 mg Q8HRS IVP Last administered on 04/07/21at 05:51; Start 04/01/21 at 11:30; Stop 04/07/21 at 14:58; Status DC Sodium Chloride 1,000 ml @ 1,000 mls/hr Q1H PRN IV hypotension; Start 04/01/21 at 13:30; Stop 04/01/21 at 19:29; Status DC Sodium Chloride 1,000 ml @ 400 mls/hr Q2H30M PRN IV PATENCY; Start 04/01/21 at 13:30; Stop 04/02/21 at 01:29; Status DC Info (PHARMACY MONITORING -- do not chart) 1 each PRN DAILY PRN MC SEE COMMENTS; Start 04/01/21 at 13:30; Status Cancel Daptomycin 500 mg/ Sodium Chloride 50 ml @ 100 mls/hr Q48H IV Last administered on 04/06/21at 15:10; Start 04/02/21 at 10:00 Sodium Chloride 1,000 ml @ 1,000 mls/hr Q1H PRN IV hypotension; Start 04/03/21 at 08:15; Stop 04/03/21 at 14:14; Status DC Sodium Chloride 1,000 ml @ 400 mls/hr Q2H30M PRN IV PATENCY; Start 04/03/21 at 08:15; Stop 04/03/21 at 20:14; Status DC Info (PHARMACY MONITORING -- do not chart) 1 each PRN DAILY PRN MC SEE COMMENTS; Start 04/03/21 at 08:15; Status Cancel Albumin Human 200 ml @ 200 mls/hr 1X PRN PRN IV Hypotension Last administered on 04/03/21at 09:18; Start 04/03/21 at 09:00; Stop 04/03/21 at 14:59; Status DC Potassium Chloride/Water 100 ml @ 100 mls/hr Q1H IV Last administered on 04/04/21at 09:26; Start 04/04/21 at 07:00; Stop 04/04/21 at 08:59; Status DC Magnesium Sulfate 50 ml @ 25 mls/hr PRN DAILY PRN IV for Mag < 1.7 on am labs; Start 04/04/21 at 13:00 Potassium Chloride/Water 100 ml @ 50 mls/hr PRN Q6HRS PRN IV For K < 3.7 Last administered on 04/06/21at 09:09; Start 04/04/21 at 13:00 Potassium Chloride/Water 100 ml @ 50 mls/hr PRN Q2HR PRN IV total of 40mEq for K < 3.5; Start 04/04/21 at 13:00 Potassium Chloride/Water 100 ml @ 100 mls/hr Q1H IV Last administered on 04/04/21at 15:12; Start 04/04/21 at 14:00; Stop 04/04/21 at 15:59; Status DC Albumin Human 200 ml @ 200 mls/hr 1X PRN PRN IV Hypotension Last administered on 04/06/21at 10:43; Start 04/06/21 at 08:45; Stop 04/06/21 at 14:44; Status DC Sodium Chloride 1,000 ml @ 400 mls/hr Q2H30M PRN IV PATENCY; Start 04/06/21 at 08:45; Stop 04/06/21 at 20:44; Status DC Info (PHARMACY MONITORING -- do not chart) 1 each PRN DAILY PRN MC SEE COMMENTS; Start 04/06/21 at 08:45 Fentanyl Citrate 30 ml @ 0 mls/hr CONT PRN PRN IV PER PROTOCOL; Start 04/08/21 at 07:15 Active Scripts Active Reported Novolog Flexpen (Insulin Aspart) 100 Unit/1 Ml Insuln.pen 3-7 SQ TIDACHC Lisinopril 5 Mg Tablet 1 Tab PO DAILY Lantus Solostar (Insulin Glargine,Hum.rec.anlog) 100 Unit/1 Ml Insuln.pen 5 Unit SQ QHS Atorvastatin Calcium 40 Mg Tablet 40 Mg PO HS Vitals/I & O Vital Sign - Last 24 Hours 04/07/21 04/07/21 04/07/21 04/07/21 08:00 08:00 08:09 08:17 Temp 99.8 99.8 Pulse 72 71 Resp 18 B/P (MAP) 133/67 (89) 133/67 Pulse Ox 99 100 O2 Delivery Mechanical Ventilator Ventilator Ventilator 04/07/21 04/07/21 04/07/21 04/07/21 08:45 09:00 10:00 11:00 Pulse 75 102 85 Resp 18 28 B/P (MAP) 135/67 (89) 171/92 (118) 149/70 (96) Pulse Ox 100 100 96 99 O2 Delivery Tracheal Collar Ventilator Tracheal Collar Tracheal Collar 04/07/21 04/07/21 04/07/21 04/07/21 11:38 12:00 12:00 14:00 Temp 99.6 99.6 Pulse 98 95 Resp 39 34 B/P (MAP) 179/83 (115) 170/119 (136) Pulse Ox 100 97 100 O2 Delivery Tracheal Collar Tracheal Collar Trach Collar Tracheal Collar 04/07/21 04/07/21 04/07/21 04/07/21 14:12 15:00 15:59 16:00 Pulse 78 Resp 20 B/P (MAP) 151/88 (109) Pulse Ox 92 100 100 O2 Delivery Ventilator Ventilator Ventilator Trach Collar 04/07/21 04/07/21 04/07/21 04/07/21 16:00 16:11 17:00 17:49 Temp 100.4 100.4 Pulse 104 104 Resp 24 29 B/P (MAP) 176/95 (122) 183/85 (117) Pulse Ox 98 100 99 98 O2 Delivery Tracheal Collar Tracheal Collar Tracheal Collar Tracheal Collar 04/07/21 04/07/21 04/07/21 04/07/21 17:59 19:00 20:00 20:00 Temp 100.3 100.3 Pulse 101 110 108 Resp 24 25 20 B/P (MAP) 180/86 (117) 180/85 (116) 173/119 (137) Pulse Ox 98 100 100 O2 Delivery Tracheal Collar Tracheal Collar Trach Collar Tracheal Collar 04/07/21 04/07/21 04/07/21 04/07/21 20:21 21:00 21:11 22:00 Pulse 102 102 96 Resp 20 20 B/P (MAP) 204/81 (122) 204/81 163/68 (99) Pulse Ox 99 99 97 O2 Delivery Tracheal Collar Tracheal Collar Tracheal Collar 04/07/21 04/07/21 04/07/21 04/08/21 22:35 23:00 23:40 00:00 Temp 99.8 99.8 Pulse 103 94 Resp 20 20 B/P (MAP) 182/77 (112) 115/64 (81) Pulse Ox 100 97 100 O2 Delivery Ventilator Tracheal Collar Mechanical Ventilator Ventilator 04/08/21 04/08/21 04/08/21 04/08/21 01:00 01:25 02:00 03:00 Pulse 92 90 90 Resp 20 20 20 B/P (MAP) 115/64 (81) 109/64 (79) 120/72 (88) Pulse Ox 100 100 100 100 O2 Delivery Ventilator Ventilator Ventilator Ventilator 04/08/21 04/08/21 04/08/21 04/08/21 03:20 03:43 04:00 05:00 Temp 100.2 100.2 Pulse 108 100 Resp 20 20 B/P (MAP) 180/88 (118) 190/80 (116) Pulse Ox 100 100 100 O2 Delivery Ventilator Mechanical Ventilator Ventilator Ventilator 04/08/21 04/08/21 04/08/21 04/08/21 05:11 05:40 05:49 06:00 Pulse 104 102 103 Resp 20 B/P (MAP) 214/108 210/95 200/98 (132) Pulse Ox 100 100 O2 Delivery Ventilator Ventilator 04/08/21 06:28 Pulse 100 Resp 20 B/P (MAP) 193/93 (126) Pulse Ox 100 O2 Delivery Ventilator Intake and Output 04/07/21 04/07/21 04/08/21 15:00 23:00 07:00 Intake Total 30 ml 767 ml 333 ml Output Total 18 ml 0 ml 725 ml Balance 12 ml 767 ml -392 ml Justicifation of Admission Dx: Justifications for Admission: Justification of Admission Dx: N/A OMERO HEARN MD Apr 08, 2021 07:57
[2021-04-08] MEDS: DOCUSATE 100 MG/10 ML SOLUTION. PO SCH ×2 (08:03→21:47)
[2021-04-08] MEDS: MULTIVITAMINS,THERAPEUTIC 5 ML ORAL LIQUID. PEG SCH (08:03)
[2021-04-08] MEDS: FAMOTIDINE 20 MG/2 ML VIAL IVP SCH (08:04)
[2021-04-08] MEDS: NYSTATIN TOPICAL POWDER 15GM BOTTLE. TP SCH ×2 (08:06→21:47)
[2021-04-08] MEDS ORDERED: DIALYSIS PATIENT. MC PRN ×2 (08:30)
--- NOTE | 2021-04-08 10:32 | NUR ---
SS following up with discharge planning. SS reviewed pt chart and discussed with pt RN. Pt is currently on the vent at 40%. COVID19 recovered. hemodialysis today. Trach in place. Possible trial with trach shield later today. G-tube in place. Pt on IV Daptomycin and IV Meropenem. Medicaid and Disability pending. Med [facility]ist still needing additional financial information from spouse. SS discussed with Cate in [facility] and Cate contacting pt's spouse to discuss. SS will continue to follow for discharge planning.
[2021-04-08] MEDS: INSULIN GLARGINE SYRINGE. SQ SCH ×2 (10:46→21:53)
--- NOTE | 2021-04-08 10:54 | PDOC ---
PULMONARY PROGRESS NOTES DATE: 04/08/21 TIME: 10:52 Subjective Patient had 2 hours of trach shield yesterday. She was doing abdominal breathing. She was rested on the ventilator. Patient had periods of emesis today. Vitals Vital Signs Date Time Temp Pulse Resp B/P (MAP) Pulse Ox O2 Delivery O2 Flow Rate FiO2 04/08/21 10:00 111 18 170/91 (117) 100 Ventilator 04/08/21 08:00 100.6 100.6 General: Lethargic Lungs: Clear Cardiovascular: S1 Abdomen: Soft, Non-tender Skin: Warm Labs Laboratory Tests Test 04/06/21 18:43 04/07/21 00:11 04/07/21 05:05 04/07/21 05:50 Glucose (Fingerstick) 193 mg/dL (70-99) 256 mg/dL (70-99) 256 mg/dL (70-99) Sodium Level 137 mmol/L (136-145) Potassium Level 3.5 mmol/L (3.5-5.1) Chloride Level 99 mmol/L (98-107) Carbon Dioxide Level 27 mmol/L (21-32) Anion Gap 11 (6-14) Blood Urea Nitrogen 32 mg/dL (7-20) Creatinine 3.0 mg/dL (0.6-1.0) Estimated GFR (Cockcroft-Gault) 16.9 Glucose Level 276 mg/dL (70-99) Calcium Level 9.4 mg/dL (8.5-10.1) Test 04/07/21 08:00 04/07/21 11:51 04/07/21 17:57 04/07/21 23:35 O2 Saturation 99 % (92-99) Arterial Blood pH 7.47 (7.35-7.45) Arterial Blood pCO2 at Patient Temp 32 mmHg (35-46) Arterial Blood pO2 at Patient Temp 151 mmHg (75-108) Arterial Blood HCO3 23 mmol/L (21-28) Arterial Blood Base Excess -1 mmol/L (-3-3) FiO2 40/vent Glucose (Fingerstick) 229 mg/dL (70-99) 156 mg/dL (70-99) 193 mg/dL (70-99) Test 04/08/21 04:45 White Blood Count 13.9 x10^3/uL (4.0-11.0) Red Blood Count 3.34 x10^6/uL (3.50-5.40) Hemoglobin 10.0 g/dL (12.0-15.5) Hematocrit 28.8 % (36.0-47.0) Mean Corpuscular Volume 86 fL (79-100) Mean Corpuscular Hemoglobin 30 pg (25-35) Mean Corpuscular Hemoglobin Concent 35 g/dL (31-37) Red Cell Distribution Width 14.4 % (11.5-14.5) Platelet Count 375 x10^3/uL (140-400) Neutrophils (%) (Auto) 67 % (31-73) Lymphocytes (%) (Auto) 19 % (24-48) Monocytes (%) (Auto) 8 % (0-9) Eosinophils (%) (Auto) 3 % (0-3) Basophils (%) (Auto) 3 % (0-3) Neutrophils # (Auto) 9.3 x10^3/uL (1.8-7.7) Lymphocytes # (Auto) 2.6 x10^3/uL (1.0-4.8) Monocytes # (Auto) 1.1 x10^3/uL (0.0-1.1) Eosinophils # (Auto) 0.4 x10^3/uL (0.0-0.7) Basophils # (Auto) 0.4 x10^3/uL (0.0-0.2) Sodium Level 139 mmol/L (136-145) Potassium Level 3.4 mmol/L (3.5-5.1) Chloride Level 100 mmol/L (98-107) Carbon Dioxide Level 24 mmol/L (21-32) Anion Gap 15 (6-14) Blood Urea Nitrogen 41 mg/dL (7-20) Creatinine 3.7 mg/dL (0.6-1.0) Estimated GFR (Cockcroft-Gault) 13.2 Glucose Level 230 mg/dL (70-99) Calcium Level 10.0 mg/dL (8.5-10.1) Triglycerides Level 703 mg/dL (0-150) Laboratory Tests Test 04/07/21 11:51 04/07/21 17:57 04/07/21 23:35 04/08/21 04:45 Glucose (Fingerstick) 229 mg/dL (70-99) 156 mg/dL (70-99) 193 mg/dL (70-99) White Blood Count 13.9 x10^3/uL (4.0-11.0) Red Blood Count 3.34 x10^6/uL (3.50-5.40) Hemoglobin 10.0 g/dL (12.0-15.5) Hematocrit 28.8 % (36.0-47.0) Mean Corpuscular Volume 86 fL (79-100) Mean Corpuscular Hemoglobin 30 pg (25-35) Mean Corpuscular Hemoglobin Concent 35 g/dL (31-37) Red Cell Distribution Width 14.4 % (11.5-14.5) Platelet Count 375 x10^3/uL (140-400) Neutrophils (%) (Auto) 67 % (31-73) Lymphocytes (%) (Auto) 19 % (24-48) Monocytes (%) (Auto) 8 % (0-9) Eosinophils (%) (Auto) 3 % (0-3) Basophils (%) (Auto) 3 % (0-3) Neutrophils # (Auto) 9.3 x10^3/uL (1.8-7.7) Lymphocytes # (Auto) 2.6 x10^3/uL (1.0-4.8) Monocytes # (Auto) 1.1 x10^3/uL (0.0-1.1) Eosinophils # (Auto) 0.4 x10^3/uL (0.0-0.7) Basophils # (Auto) 0.4 x10^3/uL (0.0-0.2) Sodium Level 139 mmol/L (136-145) Potassium Level 3.4 mmol/L (3.5-5.1) Chloride Level 100 mmol/L (98-107) Carbon Dioxide Level 24 mmol/L (21-32) Anion Gap 15 (6-14) Blood Urea Nitrogen 41 mg/dL (7-20) Creatinine 3.7 mg/dL (0.6-1.0) Estimated GFR (Cockcroft-Gault) 13.2 Glucose Level 230 mg/dL (70-99) Calcium Level 10.0 mg/dL (8.5-10.1) Triglycerides Level 703 mg/dL (0-150) Medications Active Scripts Medications Dose Route/Sig Max Daily Dose Days Date Category Novolog Flexpen (Insulin Aspart) 100 Unit/1 Ml Insuln.pen 3-7 SQ TIDACHC 02/07/21 Reported Lisinopril 5 Mg Tablet 1 Tab PO DAILY 02/07/21 Reported Lantus Solostar (Insulin Glargine,Hum.rec.anlog) 100 Unit/1 Ml Insuln.pen 5 Unit SQ QHS 04/09/15 Reported Atorvastatin Calcium 40 Mg Tablet 40 Mg PO HS 04/09/15 Reported Impression . IMPRESSION: 1. Acute hypoxic respiratory failure secondary to COVID-19 viral pneumonia/acute lung injury and early acute respiratory distress syndrome. S/P intubation 02/17/21. Status post tracheostomy. 2. Nonsmoker. 3. Abnormal chest x-ray consistent with COVID-19 viral pneumonia. 4. Diabetic ketoacidosis--resolved 5. Underlying obesity contributing to hypoxia as well. 6. BOB . hemodialysis started 03/07 7. Fever, 30 ID 8. Abnormal chest x-ray with diffuse interstitial infiltrates compatible with viral pneumonia 9. [place] in the sputum is a contamination 10. Septic shoc 11. s/p lap G-tube 03/27 12. Delirium Plan . Updated 04/08 We will do daily trach shield trials as tolerated. We will do ABGs if there is paradoxical breathing during the trial. Patient had periods of emesis today. Will obtain KUB to rule out any ileus. Antibiotics per ID Follow cultures Continue hemodialysis. Follow renal recommendations. DVT GI prophylaxis Nutritional support Updated 04/07 Patient tolerated pressure support for 11 hours yesterday. We will initiate trach shield trial today. Antibiotics per ID Follow cultures Continue hemodialysis. Follow renal recommendations. DVT GI prophylaxis Nutritional support Updated 04/06 Antibiotics per ID Follow cultures Continue current vent settings Pressure support as tolerated once hemodialysis has been completed DVT GI prophylaxis Nutritional support Updated 04/05 cont vent support setting reviewed decrease sedation weaning as tolerated need high ps during weaning hd per nephro M-W-F Antibiotics per ID, actinobacter in sputum. elevate hob hep sq pepcid for prophylaxis discussed w rn Updated 04/04 cont vent support setting reviewed decrease sedation weaning as tolerated hd per nephro Antibiotics per ID, actinobacter in sputum. Cultures so far negative elevate hob hep sq pepcid for prophylaxis discussed w rn Updated 04/03 Patient currently undergoing hemodialysis, on assist control ventilation We have been unable to sedate patient and perform spontaneous breathing trials throughout the day with pressure support Antibiotics per ID, actinobacter in sputum. Cultures so far negative We will continue current support Hemodialysis per nephrology EMILY POSADA MD Apr 08, 2021 10:54
[2021-04-08] MEDS: DAPTOmycin (GENERIC) IVPB 500 MG in IV NORMAL SALINE 50ML 50 ML IV SCH (13:14)
--- NOTE | 2021-04-08 15:10 | PDOC ---
DATE OF SERVICE DATE: 04/08/21 TIME: 15:02 SUBJECTIVE ROS Sitting up, On vent Vomiting today per nursing No issues on dialysis earlier today OBJECTIVE Vital Signs Vital Signs Date Time Temp Pulse Resp B/P (MAP) Pulse Ox O2 Delivery O2 Flow Rate FiO2 04/08/21 14:00 108 18 140/82 (101) 100 Ventilator 04/08/21 12:00 98.9 98.9 I & 0 Intake and Output 04/08/21 07:00 Intake Total 1130 ml Output Total 743 ml Balance 387 ml IV Total 727 ml Tube Feeding 403 ml Output Urine Total 743 ml PHYSICAL EXAM Physical Exam GENERAL: On vent HEENT: Anicteric. . Neck Trach+ LUNGS: decreased at bases HEART: S1, S2. No murmurs. ABDOMEN: Obese, soft. Bowel sounds present. GENITOURINARY: Kern and rectal tube in place. EXTREMITIES: Edema present no cyanosis. CENTRAL NERVOUS SYSTEM: awake, on vent PSYCHIATRIC: Unable to assess. DERM has pressure wounds DIAGNOSIS/ASSESSMENT Assessment & Plan BOB-ATN- was anuric , has been non Oliguric for past 11/2 -2 weeks , noticed some decrease in UOP No improvement in clearance - requiring dialysis., currently on MWF schedule, Dialyzed earlier today , tolerated well . Discussed treatment plan with [facility] Supportive care, I/O avoid nephrotoxins, Monitor for recovery .Access- temp HDC HypoNatremia - resolved stable HypoKalemia - K low Normal, Change from Nepro to Normal K Tube feed DM 2 - Glucosuria + POA COVID 19 Pneumonia - Unvaccinated , treated, Off isolation Acute Resp Failure- Intubated ; CxR 04/01 Moderate diffuse pulmonary opacities, slightly decreased compared to prior. HTN antihypertensives Anemia -avoid DOYLE 2/2 to Thrombogenic state Family History of ESRD - Per at bedside- Pt's Mom was on dialysis and sister is on Dialysis COMMENT/RELEVANT DATA Meds Current Medications Medications (Trade) Dose Ordered Sig/Pepe Start Time Stop Time Status Last Admin Dose Admin Acetaminophen (Tylenol Supp) 650 mg PRN Q6HRS PRN 02/08/21 01:45 02/17/21 10:45 DC Acetaminophen (Tylenol) 500 mg 1X PRN PRN 03/17/21 13:30 03/18/21 13:29 DC Albumin Human 200 ml @ 200 mls/hr 1X PRN PRN 04/06/21 08:45 04/06/21 14:44 DC 04/06/21 10:43 200 MLS/HR Albuterol Sulfate (Ventolin Hfa) 60 puff STK-MED ONCE 03/17/21 11:29 03/17/21 11:29 DC Alteplase, Recombinant (Cathflo For Central Catheter Clearance) 1 mg 1X ONCE 02/27/21 14:30 02/27/21 14:36 DC 02/27/21 15:19 1 MG Alteplase, Recombinant (Cathflo) 2 mg 1X ONCE 02/27/21 11:00 02/27/21 11:01 DC 02/27/21 11:20 2 MG Amlodipine Besylate (Norvasc) 10 mg DAILY 03/31/21 09:00 04/08/21 08:05 10 MG Atorvastatin Calcium (Lipitor) 40 mg HS 02/08/21 21:00 04/07/21 21:07 40 MG Atropine Sulfate (ATROPINE 0.5mg SYRINGE) 0.5 mg PRN Q5MIN PRN 02/16/21 12:00 Azithromycin 250 mg/Sodium Chloride 250 ml @ 250 mls/hr Q24H 02/14/21 13:30 02/18/21 14:29 DC 02/18/21 11:51 250 MLS/HR Benzonatate (Tessalon Perle) 100 mg [id number] 02/10/21 23:30 02/17/21 10:45 DC 02/16/21 22:07 100 MG Bupivacaine HCl/ Epinephrine Bitart (Sensorcain-Epi 0.5% Kit) 30 ml STK-MED ONCE 03/27/21 10:05 03/27/21 10:05 DC 03/27/21 13:12 16 ML Bupivacaine HCl/ Epinephrine Bitart (Sensorcain-Epi 0.5%-1:299020 Mpf) 30 ml STK-MED ONCE 03/17/21 10:47 03/17/21 10:47 DC Carvedilol (Coreg) 6.25 mg [id number] 02/08/21 20:30 02/23/21 15:50 DC 02/23/21 08:06 6.25 MG Cefazolin Sodium/ Dextrose (Ancef 2gm Premix) 2 gm STK-MED ONCE 03/23/21 13:00 9/14/21 11:58 DC Ceftriaxone Sodium (Rocephin) 1 gm Q24H 02/14/21 13:00 02/23/21 07:34 DC 02/22/21 12:42 1 GM Cellulose (Surgicel Fibrillar 1x2) 1 each STK-MED ONCE 03/17/21 10:47 03/17/21 10:47 DC 03/17/21 11:56 1 EACH Daptomycin 480 mg/ Sodium Chloride 50 ml @ 100 mls/hr QMWF 03/23/21 16:00 03/26/21 10:29 DC 03/25/21 19:52 100 MLS/HR Daptomycin 500 mg/ Sodium Chloride 50 ml @ 100 mls/hr Q48H 04/02/21 10:00 04/08/21 13:14 100 MLS/HR Dexamethasone Sodium Phosphate (Decadron) 2 mg 1X ONCE 02/27/21 09:00 02/26/21 07:15 DC Dexmedetomidine HCl 400 mcg/ Sodium Chloride 100 ml @ 0 mls/hr CONT PRN 02/27/21 09:45 04/08/21 11:28 17.4 MLS/HR Dextrose (Dextrose 50%-Water Syringe) 12.5 gm PRN Q15MIN PRN 03/01/21 13:00 03/01/21 12:55 12.5 GM Diphenhydramine HCl (Benadryl) 25 mg 1X PRN PRN 03/17/21 13:30 03/18/21 13:29 DC Docusate Sodium (Colace Solution) 100 mg BID 02/23/21 12:00 04/08/21 08:03 100 MG Docusate Sodium (Colace) 100 mg PRN DAILY PRN 02/07/21 08:45 02/23/21 10:47 DC Enalaprilat (Vasotec Inj) 0.625 mg Q6HRS 02/08/21 16:15 02/09/21 16:01 DC 02/09/21 13:42 0.625 MG Enoxaparin Sodium (Lovenox 30mg Syringe) 30 mg Q24H 03/08/21 09:00 03/12/21 15:38 DC 03/12/21 09:04 30 MG Enoxaparin Sodium (Lovenox 40mg Syringe) 40 mg BID 02/09/21 09:00 03/08/21 13:56 DC 03/08/21 08:26 40 MG Enoxaparin Sodium (Lovenox Per Pharmacy Prophylaxis Dosing) 1 each PRN DAILY PRN 02/09/21 06:45 03/12/21 15:38 DC Ephedrine Sulfate (ePHEDrine PF IN SALINE SYRINGE) 50 mg STK-MED ONCE 03/17/21 10:56 03/17/21 10:56 DC Famotidine (Pepcid Vial) 20 mg DAILY 03/10/21 09:00 04/08/21 08:04 20 MG Fentanyl Citrate 30 ml @ 0 mls/hr CONT PRN PRN 04/08/21 07:15 04/08/21 08:11 1.25 MLS/HR Fentanyl Citrate (Fentanyl 2ml Vial) 100 mcg STK-MED ONCE 03/27/21 13:18 03/27/21 13:18 DC Fluconazole/ Sodium Chloride 100 ml @ 100 mls/hr Q24H 03/07/21 09:00 03/17/21 08:03 DC 03/16/21 08:29 100 MLS/HR Furosemide (Lasix) 40 mg 1X ONCE 03/29/21 15:00 03/29/21 15:02 DC 03/29/21 15:22 40 MG Glycerin/ Hypromellose/ Polyethylene (Artificial Tears) 1 drop PRN Q1HR PRN 02/17/21 10:00 04/05/21 08:02 1 DROP Glycopyrrolate (Robinul) 1 mg STK-MED ONCE 03/27/21 14:07 03/27/21 14:07 DC Guaifenesin (Robitussin Dm) 10 ml PRN Q6HRS PRN 02/10/21 23:30 02/16/21 09:06 10 ML Haloperidol Lactate (Haldol Inj) 5 mg Q8HRS 04/01/21 11:30 04/07/21 14:58 DC 04/07/21 05:51 5 MG Heparin Sodium (Porcine) (Heparin Sodium) 5,000 unit Q8HRS 03/13/21 06:00 04/08/21 14:16 5,000 UNIT Hydralazine HCl (Apresoline Inj) 10 mg PRN Q4HRS PRN 02/11/21 12:15 04/08/21 05:49 10 MG Hydromorphone HCl (Dilaudid) 0.5 mg PRN Q10MIN PRN 03/27/21 06:00 03/28/21 05:59 DC Info (PHARMACY MONITORING -- do not chart) 1 each PRN DAILY PRN 04/08/21 08:30 Insulin Glargine (Lantus Syringe) 5 unit BID 03/06/21 09:00 04/08/21 10:46 5 UNIT Insulin Human Lispro (HumaLOG) 12 units Q6HRS 02/20/21 12:00 02/28/21 15:38 DC 02/27/21 05:41 12 UNITS Insulin Human Regular 100 ml @ 10 mls/hr 1X ONCE 02/07/21 06:30 02/07/21 16:54 DC 02/07/21 09:31 6.5 MLS/HR Insulin Human Regular 100 unit/ Sodium Chloride 101 ml @ 0 mls/hr CONT PRN PRN 02/07/21 06:00 02/07/21 16:54 DC Labetalol HCl (Normodyne Iv Push) 10 mg PRN Q2HR PRN 02/08/21 00:45 04/08/21 05:11 10 MG Lactobacillus Rhamnosus (Culturelle) 1 cap BID 02/16/21 21:00 02/17/21 10:45 DC 02/16/21 22:02 1 CAP Lidocaine HCl (Buffered Lidocaine 1%) 3 ml STK-MED ONCE 03/07/21 13:25 03/07/21 13:25 DC Linezolid (Zyvox) 600 mg BID 03/05/21 09:00 03/12/21 07:00 DC 03/11/21 20:33 600 MG Linezolid/Dextrose 300 ml @ 300 mls/hr Q12HR 03/16/21 10:00 03/18/21 07:37 DC 03/17/21 21:44 300 MLS/HR Lisinopril (Prinivil) 20 mg DAILY 02/17/21 09:00 03/09/21 10:43 DC 02/27/21 09:10 20 MG Lorazepam (Ativan Inj) 0.5 mg PRN Q6HRS PRN 02/08/21 10:00 04/01/21 15:32 0.5 MG Magnesium Sulfate 50 ml @ 25 mls/hr PRN DAILY PRN 04/04/21 13:00 Meropenem 1 gm/ Sodium Chloride 100 ml @ 200 mls/hr Q24H 03/18/21 17:00 04/07/21 17:42 200 MLS/HR Methylprednisolone Sodium Succinate (SOLU-Medrol 125MG VIAL) 80 mg Q8HRS 02/25/21 09:00 02/26/21 07:09 DC 02/26/21 05:52 80 MG Metoclopramide HCl (Reglan Vial) 10 mg PRN Q6HRS PRN 02/08/21 00:45 02/12/21 15:51 10 MG Micafungin Sodium 100 mg/Dextrose 100 ml @ 100 mls/hr Q24H 03/21/21 18:00 03/25/21 10:27 DC 03/24/21 16:36 100 MLS/HR Midazolam HCl 100 ml @ 0 mls/hr CONT PRN 02/17/21 10:00 03/20/21 17:18 5 MLS/HR Morphine Sulfate (Morphine Sulfate) 1 mg PRN Q10MIN PRN 03/27/21 06:00 03/28/21 05:59 DC Multi-Ingred Cream/Lotion/Oil/ Oint (Artificial Tears Eye Ointment) 1 reji PRN Q1HR PRN 03/17/21 17:30 03/20/21 15:55 1 REJI Multivitamins/ Minerals Therapeutic (Centrum Multivit-Mineral Liq) 5 ml DAILY 03/14/21 09:00 04/08/21 08:03 5 ML Naloxone HCl (Narcan) 0.4 mg PRN Q2MIN PRN 03/27/21 14:30 Neostigmine [place] (Neostigmine Methylsulfate) 5 mg STK-MED ONCE 03/27/21 14:06 03/27/21 14:07 DC Norepinephrine Bitartrate 8 mg/ Dextrose 258 ml @ 21.711 mls/ hr CONT PRN 03/06/21 13:45 03/19/21 18:45 23.3 MLS/HR Nystatin (Nystop) 1 reji BID 03/02/21 21:00 04/08/21 08:06 1 REJI Ondansetron HCl (Zofran Odt) 4 mg 1X ONCE 02/06/21 23:30 02/06/21 23:31 DC 02/06/21 23:57 4 MG Ondansetron HCl (Zofran) 4 mg 1X ONCE 02/07/21 20:00 02/07/21 20:07 DC 02/07/21 20:06 4 MG Phenylephrine HCl (PHENYLEPHRINE in 0.9% NACL PF) 1 mg STK-MED ONCE 03/27/21 13:46 03/27/21 13:46 DC Piperacillin Sod/ Tazobactam Sod (Zosyn Per Pharmacy) 1 each PRN DAILY PRN 02/23/21 07:45 03/17/21 10:04 DC Piperacillin Sod/ Tazobactam Sod 2.25 gm/Sodium Chloride 50 ml @ 100 mls/hr Q8HRS 03/07/21 14:00 03/17/21 08:03 DC 03/17/21 05:58 100 MLS/HR Piperacillin Sod/ Tazobactam Sod 3.375 gm/Sodium Chloride 50 ml @ 100 mls/hr Q6HRS 03/14/21 18:00 Cancel Piperacillin Sod/ Tazobactam Sod 4.5 gm/Sodium Chloride 100 ml @ 200 mls/hr Q6HRS 02/23/21 08:00 03/07/21 08:18 DC 03/07/21 06:12 200 MLS/HR Potassium Chloride/Water 100 ml @ 100 mls/hr Q1H 04/04/21 14:00 04/04/21 15:59 DC 04/04/21 15:12 100 MLS/HR Potassium Chloride (Klor-Con) 40 meq 1X ONCE 02/13/21 12:00 02/13/21 12:01 DC 02/13/21 13:21 40 MEQ Prochlorperazine Edisylate (Compazine) 5 mg PACU PRN PRN 03/27/21 06:00 03/28/21 05:59 DC Propofol (Diprivan) 200 mg STK-MED ONCE 03/27/21 12:02 03/27/21 12:03 DC Remdesivir 100 mg/ Sodium Chloride 230 ml @ 460 mls/hr Q24H 02/15/21 12:00 02/18/21 12:29 DC 02/18/21 11:52 460 MLS/HR Remdesivir 200 mg/ Sodium Chloride 210 ml @ 210 mls/hr 1X ONCE 02/11/21 13:00 02/12/21 11:55 DC 02/11/21 14:33 210 MLS/HR Ringer's Solution 1,000 ml @ 30 mls/hr Q24H 03/27/21 06:00 03/27/21 17:59 DC Rocuronium [place] (Zemuron) 50 mg STK-MED ONCE 03/27/21 13:16 03/27/21 13:17 DC Sennosides (Senna) 17.2 mg PRN BID PRN 02/07/21 08:45 02/22/21 08:29 17.2 MG Sevoflurane (Ultane) 60 ml STK-MED ONCE 03/27/21 14:19 03/27/21 14:20 DC Sodium Chloride 1,000 ml @ 400 mls/hr Q2H30M PRN 04/06/21 08:45 04/06/21 20:44 DC Sodium Chloride (Normal Saline Flush) 3 ml QSHIFT PRN 03/27/21 14:30 Succinylcholine Chloride (Anectine) 200 mg STK-MED ONCE 02/17/21 10:00 02/25/21 08:40 DC Vancomycin HCl (Vanco Per Pharmacy) 1 each PRN DAILY PRN 03/04/21 18:30 03/05/21 08:59 DC 03/04/21 19:47 1 EACH Vancomycin HCl (Vancomycin Trough Level) 1 each 1X ONCE 03/06/21 07:00 03/06/21 07:01 Cancel Vancomycin HCl 1.5 gm/Sodium Chloride 500 ml @ 250 mls/hr Q12H 03/05/21 07:30 03/05/21 08:58 DC Vancomycin HCl 1 gm/Sodium Chloride 250 ml @ 250 mls/hr Q12H 03/04/21 20:00 UNV Vancomycin HCl 2 gm/Sodium Chloride 500 ml @ 250 mls/hr 1X ONCE 03/04/21 19:00 03/04/21 20:59 DC 03/04/21 19:26 250 MLS/HR Vecuronium [place] (Norcuron Bolus) 6 mg PRN Q2HRS PRN 03/06/21 14:30 03/16/21 10:16 5 MG Vitamin A/Vitamin D (Vitamin A & D Ointment) 1 reji PRN Q1HR PRN 03/10/21 01:45 03/20/21 09:34 1 REJI Lab Laboratory Tests Test 04/07/21 17:57 04/07/21 23:35 04/08/21 04:45 04/08/21 11:50 Glucose (Fingerstick) 156 mg/dL (70-99) 193 mg/dL (70-99) 196 mg/dL (70-99) White Blood Count 13.9 x10^3/uL (4.0-11.0) Red Blood Count 3.34 x10^6/uL (3.50-5.40) Hemoglobin 10.0 g/dL (12.0-15.5) Hematocrit 28.8 % (36.0-47.0) Mean Corpuscular Volume 86 fL (79-100) Mean Corpuscular Hemoglobin 30 pg (25-35) Mean Corpuscular Hemoglobin Concent 35 g/dL (31-37) Red Cell Distribution Width 14.4 % (11.5-14.5) Platelet Count 375 x10^3/uL (140-400) Neutrophils (%) (Auto) 67 % (31-73) Lymphocytes (%) (Auto) 19 % (24-48) Monocytes (%) (Auto) 8 % (0-9) Eosinophils (%) (Auto) 3 % (0-3) Basophils (%) (Auto) 3 % (0-3) Neutrophils # (Auto) 9.3 x10^3/uL (1.8-7.7) Lymphocytes # (Auto) 2.6 x10^3/uL (1.0-4.8) Monocytes # (Auto) 1.1 x10^3/uL (0.0-1.1) Eosinophils # (Auto) 0.4 x10^3/uL (0.0-0.7) Basophils # (Auto) 0.4 x10^3/uL (0.0-0.2) Sodium Level 139 mmol/L (136-145) Potassium Level 3.4 mmol/L (3.5-5.1) Chloride Level 100 mmol/L (98-107) Carbon Dioxide Level 24 mmol/L (21-32) Anion Gap 15 (6-14) Blood Urea Nitrogen 41 mg/dL (7-20) Creatinine 3.7 mg/dL (0.6-1.0) Estimated GFR (Cockcroft-Gault) 13.2 Glucose Level 230 mg/dL (70-99) Calcium Level 10.0 mg/dL (8.5-10.1) Magnesium Level 2.2 mg/dL (1.8-2.4) Triglycerides Level 703 mg/dL (0-150) Results All relevant outside records, renal labs, imaging studies, telemetry/EKG's were reviewed. Justicifation of Admission Dx: Justifications for Admission: Justification of Admission Dx: N/A GIGI CARMEN MD Apr 08, 2021 15:10
[2021-04-08] MEDS ORDERED: IV NORMAL SALINE 500ML BAG 500 ML IV ONE (16:45)
[2021-04-08] MEDS: MEROPENEM 1 GM in IV NORMAL SALINE 100ML 100 ML IV SCH (17:09)
--- NOTE | 2021-04-08 18:05 | RAD ---
EXAM: XR ABDOMEN 1V 04/08/2021 2:19 PM CLINICAL INDICATION: Vomiting COMPARISON: Abdominal radiograph 03/23/2021 TECHNIQUE: AP supine view the abdomen FINDINGS: Bowel gas pattern is nonspecific and nonobstructive. Normal volume of stool. Right hemidia phragm is elevated. There are cholecystectomy clips. Nasogastric tube has been removed and there is a new There is a gastrostomy tube projecting over the left upper quadrant in the region of the stomach . IMPRESSION: 1. No acute abnormality. 2. New percutaneous gastrostomy tube. Electronically signed by: Jennifer Johnson MD (04/08/2021 6:03 PM) [id number]
[2021-04-08] MEDS: ATORVASTATIN CALCIUM 40 MG TABLET. PO SCH (21:47)
[2021-04-09] VITALS (24 sets, daily range): BP systolic 117–195; BP diastolic 65–107
[2021-04-09] MEDS: DEXMEDETOMIDINE 400 MCG in IV NORMAL SALINE 100ML 96 ML IV PRN ×7 (00:51→23:40)
[2021-04-09] MEDS: HEPARIN for SUB-Q USE 5,000 UNIT/ML VIAL. SQ SCH ×3 (06:43→21:51)
[2021-04-09 06:46] LABS: BASO % 0 % (0-3); EOS % 0 % (0-3); HEMATOCRIT 28.3 % (36.0-47.0); HEMOGLOBIN 9.5 g/dL (12.0-15.5); LYMPH # 1.8 x10^3/uL (1.0-4.8); LYMPH % 13 % (24-48); MEAN CORPUSCULAR HEMOGLOBIN 29 pg (25-35); MEAN CORPUSCULAR HGB CONC 34 g/dL (31-37); MEAN CORPUSCULAR VOLUME 88 fL (79-100); MONO # 1.3 x10^3/uL (0.0-1.1); MONO % 10 % (0-9); NEUT # 10.7 x10^3/uL (1.8-7.7); NEUT % 77 % (31-73); PLATELET COUNT 307 x10^3/uL (140-400); RED BLOOD COUNT 3.23 x10^6/uL (3.50-5.40); RED CELL DISTRIBUTION WIDTH 14.4 % (11.5-14.5); WHITE BLOOD COUNT 13.9 x10^3/uL (4.0-11.0)
[2021-04-09] MEDS: INSULIN LISPRO 300 UNITS/3 ML VIAL. SQ SCH ×3 (06:47→18:13)
[2021-04-09 07:03] LABS: ALBUMIN 3.8 g/dL (3.4-5.0); ALBUMIN/GLOBULIN RATIO 0.7 (1.0-1.7); CALCIUM 9.8 mg/dL (8.5-10.1); GFR 16.9; POTASSIUM 3.6 mmol/L (3.5-5.1); TOTAL BILIRUBIN 0.7 mg/dL (0.2-1.0); TOTAL PROTEIN 9.1 g/dL (6.4-8.2)
[2021-04-09] MEDS: DOCUSATE 100 MG/10 ML SOLUTION. PO SCH ×2 (07:20→21:47)
[2021-04-09] MEDS: FAMOTIDINE 20 MG/2 ML VIAL IVP SCH (07:21)
[2021-04-09] MEDS: MULTIVITAMINS,THERAPEUTIC 5 ML ORAL LIQUID. PEG SCH (07:21)
[2021-04-09 07:48] LABS: BASE EXCESS ABG -1 mmol/L (-3-3); HCO3 ABG 21 mmol/L (21-28); PCO2 ABG 25 mmHg (35-46); PO2 ABG 162 mmHg (75-108); SAT O2 ABG 98 % (92-99)
[2021-04-09 07:50] LABS: FIO2 ABG 40% vent
[2021-04-09] MEDS: ACETAMINOPHEN 650 MG/20.3 ML SOLUTION. PEG PRN (09:20)
[2021-04-09] MEDS: NYSTATIN TOPICAL POWDER 15GM BOTTLE. TP SCH ×2 (09:20→21:47)
[2021-04-09] MEDS: INSULIN GLARGINE SYRINGE. SQ SCH ×2 (09:23→21:51)
--- NOTE | 2021-04-09 09:47 | PDOC ---
PROGRESS NOTES Date of Service: DATE: 04/09/21 TIME: 09:46 Chief Complaint Chief Complaint impression Covid-19 DKA Hypotension Nausea Vomiting Combined metabolic and respiratory acidosis Acute electrolyte derangementhyponatremia, hypochloremia due to volume depletion Hyperglycemia BOB due to ATN, requiring dialysis Erythrocytosis Candiduria Sacral decubitus ulcer S/P Trach on (03/17/21) Trach cultures positive for [place] albicans and now acinebacter ursungi Patient febrile morning of 04/02. Adding daptomycin per infectious disease. History of Present Illness History of Present Illness Ms Banks is a 46 year old female who presented with nausea/vomiting since 7 AM 02/06/2021 in the morning. Patient stated that her recently tested positive for Covid. She states that he "coughed in my face because he thought it was funny." She reports subjective fevers and chills and nausea/vomiting. Denies sore throat, cough, shortness of breath. No chest pain. Does have some upper abdominal discomfort after vomiting, that she attributes to muscular strain. She was not vaccinated for Covid. 02/08: No acute events overnight. Patient seen and examined bedside and resting comfortably. Continues to complain of nausea not able to tolerate any diet at this time. Saturating 98% on room air. Patient's chart, labs, images were reviewed and discussed with RN 2: Afebrile, currently breathing on room air. Still with complaints of nausea and vomiting x3 today. States that she has history of similar symptoms that have been mildly improved with IV Dilaudid. 02/10: Patient febrile today with T-max 102.2 F. She still admits to nausea, denies any further vomiting. We will continue to provide supportive care and monitor for any recurrent fevers overnight. Patient continues to improve may discharge tomorrow to continue self-isolation. 02/11: Febrile overnight, T-max 102.3 F. She did become hypoxic overnight, currently breathing on 4 L nasal cannula. Also admits to associated vomiting or diarrhea overnight. Discussed with RN, will initiate remdesivir and closely monitor LFTs. IV Decadron, and prophylactic antibiotics. 02/12: Low-grade fever overnight, T-max 99.7. Currently breathing on room air. Will discontinue remdesivir, steroids, and antibiotics; will observe overnight. Still with complaints of vomiting x1 and diarrhea. We will continue to provide supportive care and hope to discharge in the next day or so. 02/13: Afebrile. Still complains of intermittent diarrhea. At the time of my evaluation she was breathing on 6 L nasal cannula; this is somewhat misleading as patient states that she did not feel short of breath but was placed on 6 L by nursing staff overnight. 02/14: Afebrile, currently breathing on 8 L nasal cannula. There has been some misleading documentation, chart oxygen this patient is requiring. Discussed with RN, will resume remdesivir to complete total of 5 days. Continue to monitor LFTs. Will add steroids, Rocephin, and azithromycin. 02/15: Afebrile. Became much more hypoxic overnight, requiring BiPAP. At the time of my evaluation she is still breathing on BiPAP. Consultation was placed to pulmonology. Had discussion with Dr. Myrick about initiating Tocilizumab 02/16: No acute events overnight. Patient becoming more hypoxic saturating 94% and requiring BiPAP. Patient will be transferred to the ICU at this time. For worsening clinical status. Discussed with pulmonary. Patient's chart, labs, images were reviewed and discussed with RN 02/17: Transferred to ICU yesterday afternoon. Seen and examined at bedside she remains on 100% FiO2 on BiPAP. Respirations do appear somewhat labored. Suspect intubation may be impending. We will closely monitor. Increase lisinopril to 20 today. 02/18: Patient required intubation yesterday afternoon. Saw and examined this morning. She is intubated and sedated. Increase insulin today. Covid protocol ordered. Wean as tolerated. Plan of care discussed with bedside nurse. 02/19: Bedside. She remains intubated and sedated. Continue Covid protocol. Wean oxygen sedation as tolerated. Pulmonary following. Plan of care discussed with bedside RN. 02/20: Patient seen and examined at bedside. She remains intubated and sedated. No major clinical changes. Continue current treatment. Pulmonary following. Plan of care discussed with bedside RN. 02/21: Patient seen and examined at bedside. Remains intubated and sedated date and admission clinical changes. Increase free water flushes today due to hypernatremia. Plan of care discussed with bedside nurse. 02/22: Patient seen and examined at bedside. O2 requirement actually improving, although remains intubated. Possible SBT in the coming days. Hypernatremia improving. Plan of care discussed bedside RN. 02/23: Patient remains in ICU on ventilator with FiO2 100%, PEEP 7. Repeat chest x-ray yesterday showed diffuse bilateral pulmonary opacities with no interval improvement. Will discontinue Rocephin and initiate Zosyn. We will continue IV steroids for a full 10-day course 02/24: Afebrile. On vent with FiO2 40%, PEEP 6. Her Coreg has been held due to persistent bradycardia. No documented history of systolic heart failure or previous echocardiogram. Will need to obtain echocardiogram prior to discharge. Continue IV steroids and antibiotics. 02/25: Afebrile. Remains ventilated with FiO2 45%, PEEP 6. Chest x-ray today showed slight improvement of the pulmonary infiltrates, no pneumothorax. Completed 10-day course of IV Decadron. Will initiate slow Solu-Medrol taper. Continue IV Zosyn. Continue supportive care. 02/26: Afebrile. On vent with FiO2 45%, PEEP 6. Completed 10 days of IV Decadron. Will continue IV Zosyn. Continue supportive care. Critical care time 30 minutes spent reviewing charts, reviewing imaging, reviewing labs, discussion with RN. 02/27: Afebrile. On vent with FiO2 45%, PEEP 6. Completed 10 days of steroids and completed remdesivir. Continue with IV Zosyn. CPAP trial yesterday. Continue NG tube and supportive care. 02/28:. Patient remains on vent with FiO2 40%, PEEP 5. Afebrile. Completed steroids and remdesivir. Some noted hypoglycemia overnight, will de-escalate basal insulin. Continue IV Zosyn. Ventilator management per pulmonology. Continue NG tube and supportive care. 03/01: On vent with FiO2 40%, PEEP 5. Afebrile. Completed steroids and remdesivir. Blood glucose well controlled. Continue empiric antibiotics with Zosyn. Ventilator management per pulmonology. Continue NG tube and supportive care. 03/02: No acute events overnight. Patient hypotensive the morning due to oversedation. Will wean off sedation and keep antihypertensive medications on board. Currently saturating 100% on vent settings of 18/450/40/5. Will attempt spontaneous breathing trial today to see how patient does. 03/03: No acute events overnight. Patient saturating 98% on vent settings of 18 /450/40/5. Will defer spontaneous breathing trials to pulmonary at this time. Patient's chart, labs, images were reviewed and discussed with RN 03/04: No acute events overnight. Patient saturating 9 9% on vent settings of 18/450/30/5. Patient currently is unable to tolerate weaning. Per pulmonary. Patient's chart, labs, images were reviewed and discussed with RN 03/05: No acute events overnight. Patient is saturating 97% on vent settings of 18/450/55/5. Her FiO2 needs to be increased due to abnormal ABG with 7.3 /. Patient's chart, labs, images were reviewed and discussed with RN 03/06: No acute events overnight. Patient saturating 94% on vent settings of 18/450/55/5. Chest x-ray showing increase in pulmonary infiltrates. Wound care is consulted for decubitus ulcer patient's chart, labs, images were reviewed and discussed with RN 03/07: No acute events overnight. Patient saturating 94% on vent settings of 20/450/70/8. Patient now heading into renal failure with her creatinine bumped up from 1.5-4.2. Decreased urine output. Plan for hemodialysis today and temporary catheter placement and nephrology is consulted. 03/08: No acute events overnight. Patient did have a nausea vomiting episode and tube feeds were held. KUB repeat shows NG tube still in the stomach. Will resume tube feeds at trickle and advance to goal today. Will start hemodialysis soon. 03/09: Seen on vent 20/450/60%/8. ABG 7.2 WBC 11.4, Hb 7.4, platelets 188, NA 131, K4.9, BUN 48, CR 51, glucose 199, phosphorus 7.9, mag 2.2, AST 265 ALT 219, albumin 1.1. Chest radiograph appears unchanged from prior. Dialysis x1 today 03/10: Afebrile. Seen on vent, 20/450/60/7 with ABG 7.3 . Tolerated dialysis well on 03/09. LFTs similar. 03/11: Afebrile. Seen on vent, sedated. Still requiring Levophed for BP support. WBC 16.7, Hb 8.1, NA 130, ABG 7.3 on 55% FiO2 PEEP 6. On Zosyn and Zyvox Diflucan. Dialysis today 03/12: Afebrile. Still requiring Levophed for BP support sedated with Versed febrile Precedex. WBC 16.1, Hb 8.5, platelets 185, NA 133. Trach plan tentatively 03/17. O2 saturations 93% on 50% FiO2 PEEP 6. ABG 7. On Zosyn and Zyvox Diflucan. 03/13: Afebrile. Still on Levophed for BP support lightly sedated. 7. on 45% FiO2. Plan for dialysis today. On Zosyn and Zyvox Diflucan. More swollen today. 03/14: Afebrile. Weaning down off Levophed. WBC 14.9 NA 132. O2 saturations 92% on 45% FiO2 PEEP 5. Afebrile. O2 saturations 91% on FiO2 45% PEEP 6. Continued on Zosyn and Zyvox Diflucan. Tentative trach planned 03/17/2021 CC time 31 minutes 03/16/21: Patient seen and examined in ICU. Periorbital as well as upper and lower extremity edema noted. OG feed running at 30cc/hr. Still on vent on pressure control with a rate of 24 with 45% FiO2. Patient has rectal bag. Currently she has 98% O2 sat. Currently sedated with Dexmedetomidine, Propofol, Versed, and Fentanyl. Discussed with RN. Chart reviewed. 03/17/21: Patient was seen and examined in the ICU today. Periorbital edema as well as abdominal and mons pubis edema was noted. Patient still on vent on pressure control with Fi02 of 45% plus 6 PEEP. Patient had rectal bag. Currently sedated on Dexmedetomidine, Propofol, Versed, and Fentanyl. Discussed with RN. Chart reviewed. 03/18/21: Patient seen and examined in ICU. On vent via trach that was placed yesterday. Vent settings are Pressure Control of 40 with FiO2 of 45% and 6 PEEP. Trach clean and dry. Orbital swelling still present. Pupils are sluggish. Patient on TPN running at 30cc/hr. Kern to bedside and rectal bag in place. Current O2 sat at 94%. Sedated on Dexmedetomidine, Propofol, Versed, and Fentanyl. Discussed with RN. Chart reviewed. 03/19/21: Patient was seen and examined in the ICU today. Currently on vent via trach on pressure control of 42, rate of 24, FiO2 of 45%, and 6 PEEP. O2 sat is at 97% while patient is being examined. Trach is clean and dry. PICC line is in place on right arm. Periorbital swelling has decreased slightly since examined yesterday. Patient is sedated on Dexmedetomidine, Propofol, Versed, and Fentanyl. Discussed with RN. Chart reviewed. 03/20/21: Patient seen and examined in the ICU. Periorbital edema is slightly decreased since yesterday. O2 sat while being examined was 93%. NG tube in place and running at 30cc/hr. Patient on vent via trach on pressure control of 40 with FiO2 of 45 and rate of 24. Sedated on Dexmedetomidine, Propofol, Versed, and Fentanyl. PICC line in place. Kern to bedside. Rectal bag present. Discussed with RN. Chart reviewed. 03/21/21: Patient was seen and examined in the ICU today. She was semi-sedated.. She was on Dexmedetomidine and Fentanyl. We are holding the Propofol. Her eyes were periodically open but she was not making meaningful eye contact or tracking. On vent via trach with pressure control of 40 and FiO2 at 45. Rate was 24. PEEP was 5. Trach was clean and dry. While being examined, her O2 sat was 94%. Rectal bag and Kern to bedside in place. NG tube in place and feeding at 30cc/hr. IV fluids still running. Levophed has been stopped. Discussed with RN. Chart reviewed. 03/22/21: Patient was seen and examined in the ICU. She was semi-sedated on Propofol and Dexmedetomidine. Her eyes were open but she did not make meaningful eye contact. Her blood pressure was elevated (198/102) while being examined and she had just been given hydralazine to lower it. There are plans to place a PEG tube tomorrow. Currently on vent via trach on pressure control of 40 with FiO2 of 45%, 5 PEEP, and a rate of 24. Current O2 sat is 98%. She is feeding through an NG tube at 30cc/hr. Rectal bag and Kern to bedside present. SCDs on patient for DVT prophylaxis. She did not do her daily dialysis today but the plan is to start back on that tomorrow. Discussed with RN. Chart reviewed. 03/23/2021: Patient remains in ICU on ventilator. FiO2 40%, PEEP 5. Trach cultures positive for [place] albicans and acinebacter ursungi. We will cont inue treatment with IV antibiotics and micafungin, per ID. HD per nephrology. Plans for PEG tube placement today. 30 minutes critical care time was spent reviewing charts, reviewing labs, reviewing imaging, discussion with RN. 03/24/2021: Afebrile. On vent with FiO2 45%, PEEP 5. Had attempted PEG placement per GI yesterday, but unable to locate safe path for PEG; will consider surgical opinion. Once PEG is in place she should be stable for LTAC transfer when accepted. Continue antibiotics, per ID. 30 minutes critical care time was spent reviewing charts, reviewing labs, reviewing imaging, discussion with RN. 03/25/2021: Febrile overnight with T-max 101.5 F. On vent with FiO2 45%, PEEP 5. Surgery has been consulted with tentative plans for laparoscopic versus open gastrostomy placement tomorrow. Trach cultures positive for [place] albicans and now acinebacter ursungi; will continue antibiotic management, per ID. Hemodialysis, per nephrology. Patient needing LTAC placement, but currently without benefits. caseworker following for discharge planning. Critical care time 30 minutes spent reviewing charts, reviewing labs, reviewing imaging, discussion with RN. 03/26/2021: Febrile today with T-max 100.5 F. Awake on vent with FiO2 45%, PEEP 5. When I ask if she remembers any she nods. G-tube placement scheduled for tomorrow, per general surgery. Chest x-ray today showed slight interval increase in diffuse infiltrate. Continue antibiotic management, per ID. Hemodialysis per nephrology. Reportedly did not tolerate CPAP trial this morning. caseworker following for LTAC placement. Critical care time 30 minutes spent reviewing charts, reviewing labs, reviewing imaging, discussion with RN. 03/27/2021: On vent with FiO2 45%, PEEP 5. Afebrile today. Continue treatment of acute renal failure requiring HD, per nephrology. Monitor kidney function for recovery. G-tube placement scheduled for today, per general surgery. Likely LTAC placement soon, but this is been a difficult as she is self-pay without benefits; social worker delinquency prevention following. Critical care time 30 minutes spent reviewing charts, reviewing labs, reviewing imaging, discussion with RN. 03/28/2021: Afebrile. On vent with FiO2 40%, PEEP 5. Had laparoscopic gastrostomy tube placed yesterday, per general surgery. Continue treatment of acute renal failure requiring HD, per nephrology. Continue IV antibiotics, per ID. Likely LTAC placement soon, but this is been a difficult as she is self-pay without benefits; social worker delinquency prevention following. Critical care time 30 minutes spent reviewing charts, reviewing labs, reviewing imaging, discussion with RN. 03/29/2021: Afebrile. On vent with FiO2 45%, PEEP 5. S/P laparoscopic gastrostomy tube; tube feeds running. HD, per nephrology. Continue meropenem, per ID. Anticipate LTAC placement soon now that PEG has being placed; social worker delinquency prevention helping in these regards. Critical care time 30 minutes spent reviewing charts, reviewing labs, reviewing imaging, discussion with RN. 03/30 No major events or clinical changes overnight. Patient evaluated at bedside this morning on trach and G-tube. Tolerating these well. Has been working on insurance for patient for placement as she will need long-term care. Guarded prognosis. Plan of care discussed with bedside nurse. 03/31 No major clinical changes. Remains trached. Sedated. Continue current plan. 04/01 No changes. Patient resting in bed when evaluated sedated. is supposed to be working on insurance for placement for the patient. Otherwise no changes. 04/02 Patient febrile overnight, daptomycin added this morning per infectious disease. Otherwise no major clinical changes. Awaiting insurance. Infectious disease, pulmonary and renal following. Plan of care discussed with bedside RN. 04/03 Patient undergoing dialysis today. Evaluated at bedside this morning. otherwise continue current plan. supposed working on insurance. 04/04 No major overnight changes. Continue current plan. 04/05 Patient notably more movement this morning eyes open resting in bed otherwise no major changes. Continue current plan. Insurance pending. 04/06 Patient notably more movement this morning eyes open resting in bed current plan. Insurance pending. Continue daptomycin, renal dosing April 02 F/U Blood culture UA urine culture C. diff PCR negative 32 min cc time 04/07 Patient notably more movement this morning eyes open resting in bed current plan. Insurance pending. Continue daptomycin, renal dosing April 02 F/U Blood culture UA urine culture C. diff PCR negative Abnormal chest x-ray consistent with COVID-19 viral pneumonia. Diabetic ketoacidosis--resolved obesity contributing to hypoxia as well. BOB . hemodialysis started 03/07 DVT GI prophylaxis Nutritional support 34 min cc time 04/08 Patient notably more movement this morning eyes open resting in bed current plan. Insurance pending. Continue daptomycin, renal dosing April 02 F/U Blood culture UA urine culture C. diff PCR negative s/p lap G-tube 03/27 Abnormal chest x-ray consistent with COVID-19 viral pneumonia. Diabetic ketoacidosis--resolved obesity contributing to hypoxia as well. BOB . hemodialysis started 03/07 DVT GI prophylaxis Nutritional support Right PICC line February 14 out; left PICC line 04/07/2021 Right IJ HDC clean March 07 32 min cc time 04/09 non Oliguric for past 11/2 -2 weeks , good response to IV NS bolus .requiring dialysis., currently on MWF schedule, tolerating trach shield well.using her speaking valve./ resting in bed current / states she feels better Start iv Zyvox Cont Meropenem DC daptomycin post PICC line exchange aspiration precautions C. diff PCR negative F/U Blood culture UA urine culture s/p lap G-tube 03/27 Abnormal chest x-ray consistent with COVID-19 viral pneumonia. Diabetic ketoacidosis--resolved obesity contributing to hypoxia as well. BOB . hemodialysis started 03/07 DVT GI prophylaxis Nutritional support Right PICC line February 14 out; left PICC line 04/07/2021 Right IJ HDC clean March 07 34 min cc time Vitals Vitals Vital Signs Date Time Temp Pulse Resp B/P (MAP) Pulse Ox O2 Delivery O2 Flow Rate FiO2 04/09/21 09:00 83 24 141/72 (95) 99 Tracheal Collar 04/09/21 08:38 8.0 04/09/21 08:00 100.4 100.4 Physical Exam Physical Exam GENERAL: Intubated HEENT: Normocephalic, atraumatic. Anicteric. Slight bilateral periorbital edema. Latter improving Neck right IJ HDC clean Trach + LUNGS: Rhonchi. HEART: S1, S2. No murmurs. ABDOMEN: Obese, soft. Bowel sounds present. Nontender, nondistended. PEG tube in place GENITOURINARY: Kern and fecal tube in place. EXTREMITIES: Edema present no cyanosis. CENTRAL NERVOUS SYSTEM: Intubated. PSYCHIATRIC: Unable to assess. Derm has pressure wounds wound pictures noted in chart. Generalized rash, Right PICC line February 14 removed; left PICC line 04/07/2021 Right IJ HDC clean March 07 General: Alert, Cooperative, No acute distress, Other (sedated) Heart: Regular rate, Normal S1, Normal S2 Lungs: Clear Abdomen: Normal bowel sounds, Soft, Other (G-tube in place) Extremities: No cyanosis, Other (ANASARCA) Skin: No rashes, No significant lesion Labs LABS PATIENT: ARIADNA BANKS ACCOUNT: [id number] : 1975 LOCATION: [facility] ICU AGE: 46 SEX: F EXAM STATUS: ADM IN ORD. PHYSICIAN: EMILY MYRICK MD REASON: Vomiting PROCEDURE: KUB EXAM: XR ABDOMEN 1V 04/08/2021 2:19 PM CLINICAL INDICATION: Vomiting COMPARISON: Abdominal radiograph 03/23/2021 TECHNIQUE: AP supine view the abdomen FINDINGS: Bowel gas pattern is nonspecific and nonobstructive. Normal volume of stool. Right hemidiaphragm is elevated. There are cholecystectomy clips. Nasogastric tube has been removed and there is a new There is a gastrostomy tube projecting over the left upper quadrant in the region of the stomach. IMPRESSION: 1. No acute abnormality. 2. New percutaneous gastrostomy tube. Electronically signed by: Jennifer Johnson MD (04/08/2021 6:03 PM) [id number] DICTATED and SIGNED BY: JENNIFER JOHNSON MD DATE: 04/08/21 [id number] Laboratory Tests Test 04/08/21 11:50 04/08/21 18:37 04/08/21 23:57 04/09/21 06:25 Glucose (Fingerstick) 196 mg/dL (70-99) 241 mg/dL (70-99) 184 mg/dL (70-99) White Blood Count 13.9 x10^3/uL (4.0-11.0) Red Blood Count 3.23 x10^6/uL (3.50-5.40) Hemoglobin 9.5 g/dL (12.0-15.5) Hematocrit 28.3 % (36.0-47.0) Mean Corpuscular Volume 88 fL (79-100) Mean Corpuscular Hemoglobin 29 pg (25-35) Mean Corpuscular Hemoglobin Concent 34 g/dL (31-37) Red Cell Distribution Width 14.4 % (11.5-14.5) Platelet Count 307 x10^3/uL (140-400) Neutrophils (%) (Auto) 77 % (31-73) Lymphocytes (%) (Auto) 13 % (24-48) Monocytes (%) (Auto) 10 % (0-9) Eosinophils (%) (Auto) 0 % (0-3) Basophils (%) (Auto) 0 % (0-3) Neutrophils # (Auto) 10.7 x10^3/uL (1.8-7.7) Lymphocytes # (Auto) 1.8 x10^3/uL (1.0-4.8) Monocytes # (Auto) 1.3 x10^3/uL (0.0-1.1) Eosinophils # (Auto) 0.0 x10^3/uL (0.0-0.7) Basophils # (Auto) 0.0 x10^3/uL (0.0-0.2) Sodium Level 137 mmol/L (136-145) Potassium Level 3.6 mmol/L (3.5-5.1) Chloride Level 97 mmol/L (98-107) Carbon Dioxide Level 25 mmol/L (21-32) Anion Gap 15 (6-14) Blood Urea Nitrogen 39 mg/dL (7-20) Creatinine 3.0 mg/dL (0.6-1.0) Estimated GFR (Cockcroft-Gault) 16.9 BUN/Creatinine Ratio 13 (6-20) Glucose Level 252 mg/dL (70-99) Calcium Level 9.8 mg/dL (8.5-10.1) Total Bilirubin 0.7 mg/dL (0.2-1.0) Aspartate Amino Transf (AST/SGOT) 16 U/L (15-37) Alanine Aminotransferase (ALT/SGPT) 10 U/L (14-59) Alkaline Phosphatase 185 U/L (46-116) Total Protein 9.1 g/dL (6.4-8.2) Albumin 3.8 g/dL (3.4-5.0) Albumin/Globulin Ratio 0.7 (1.0-1.7) Test 04/09/21 06:46 04/09/21 07:42 Glucose (Fingerstick) 259 mg/dL (70-99) O2 Saturation 98 % (92-99) Arterial Blood pH 7.54 (7.35-7.45) Arterial Blood pCO2 at Patient Temp 25 mmHg (35-46) Arterial Blood pO2 at Patient Temp 162 mmHg (75-108) Arterial Blood HCO3 21 mmol/L (21-28) Arterial Blood Base Excess -1 mmol/L (-3-3) FiO2 40% vent Assessment and Plan Assessmemt and Plan Problems Medical Problems: (1) Ketoacidosis Status: Acute Comment Review of Relevant I have reviewed the following items mazin (where applicable) has been applied. Labs Laboratory Tests Test 04/07/21 11:51 04/07/21 17:57 04/07/21 23:35 04/08/21 04:45 Glucose (Fingerstick) 229 mg/dL (70-99) 156 mg/dL (70-99) 193 mg/dL (70-99) White Blood Count 13.9 x10^3/uL (4.0-11.0) Red Blood Count 3.34 x10^6/uL (3.50-5.40) Hemoglobin 10.0 g/dL (12.0-15.5) Hematocrit 28.8 % (36.0-47.0) Mean Corpuscular Volume 86 fL (79-100) Mean Corpuscular Hemoglobin 30 pg (25-35) Mean Corpuscular Hemoglobin Concent 35 g/dL (31-37) Red Cell Distribution Width 14.4 % (11.5-14.5) Platelet Count 375 x10^3/uL (140-400) Neutrophils (%) (Auto) 67 % (31-73) Lymphocytes (%) (Auto) 19 % (24-48) Monocytes (%) (Auto) 8 % (0-9) Eosinophils (%) (Auto) 3 % (0-3) Basophils (%) (Auto) 3 % (0-3) Neutrophils # (Auto) 9.3 x10^3/uL (1.8-7.7) Lymphocytes # (Auto) 2.6 x10^3/uL (1.0-4.8) Monocytes # (Auto) 1.1 x10^3/uL (0.0-1.1) Eosinophils # (Auto) 0.4 x10^3/uL (0.0-0.7) Basophils # (Auto) 0.4 x10^3/uL (0.0-0.2) Sodium Level 139 mmol/L (136-145) Potassium Level 3.4 mmol/L (3.5-5.1) Chloride Level 100 mmol/L (98-107) Carbon Dioxide Level 24 mmol/L (21-32) Anion Gap 15 (6-14) Blood Urea Nitrogen 41 mg/dL (7-20) Creatinine 3.7 mg/dL (0.6-1.0) Estimated GFR (Cockcroft-Gault) 13.2 Glucose Level 230 mg/dL (70-99) Calcium Level 10.0 mg/dL (8.5-10.1) Magnesium Level 2.2 mg/dL (1.8-2.4) Triglycerides Level 703 mg/dL (0-150) Test 04/08/21 11:50 04/08/21 18:37 04/08/21 23:57 04/09/21 06:25 Glucose (Fingerstick) 196 mg/dL (70-99) 241 mg/dL (70-99) 184 mg/dL (70-99) White Blood Count 13.9 x10^3/uL (4.0-11.0) Red Blood Count 3.23 x10^6/uL (3.50-5.40) Hemoglobin 9.5 g/dL (12.0-15.5) Hematocrit 28.3 % (36.0-47.0) Mean Corpuscular Volume 88 fL (79-100) Mean Corpuscular Hemoglobin 29 pg (25-35) Mean Corpuscular Hemoglobin Concent 34 g/dL (31-37) Red Cell Distribution Width 14.4 % (11.5-14.5) Platelet Count 307 x10^3/uL (140-400) Neutrophils (%) (Auto) 77 % (31-73) Lymphocytes (%) (Auto) 13 % (24-48) Monocytes (%) (Auto) 10 % (0-9) Eosinophils (%) (Auto) 0 % (0-3) Basophils (%) (Auto) 0 % (0-3) Neutrophils # (Auto) 10.7 x10^3/uL (1.8-7.7) Lymphocytes # (Auto) 1.8 x10^3/uL (1.0-4.8) Monocytes # (Auto) 1.3 x10^3/uL (0.0-1.1) Eosinophils # (Auto) 0.0 x10^3/uL (0.0-0.7) Basophils # (Auto) 0.0 x10^3/uL (0.0-0.2) Sodium Level 137 mmol/L (136-145) Potassium Level 3.6 mmol/L (3.5-5.1) Chloride Level 97 mmol/L (98-107) Carbon Dioxide Level 25 mmol/L (21-32) Anion Gap 15 (6-14) Blood Urea Nitrogen 39 mg/dL (7-20) Creatinine 3.0 mg/dL (0.6-1.0) Estimated GFR (Cockcroft-Gault) 16.9 BUN/Creatinine Ratio 13 (6-20) Glucose Level 252 mg/dL (70-99) Calcium Level 9.8 mg/dL (8.5-10.1) Total Bilirubin 0.7 mg/dL (0.2-1.0) Aspartate Amino Transf (AST/SGOT) 16 U/L (15-37) Alanine Aminotransferase (ALT/SGPT) 10 U/L (14-59) Alkaline Phosphatase 185 U/L (46-116) Total Protein 9.1 g/dL (6.4-8.2) Albumin 3.8 g/dL (3.4-5.0) Albumin/Globulin Ratio 0.7 (1.0-1.7) Test 04/09/21 06:46 04/09/21 07:42 Glucose (Fingerstick) 259 mg/dL (70-99) O2 Saturation 98 % (92-99) Arterial Blood pH 7.54 (7.35-7.45) Arterial Blood pCO2 at Patient Temp 25 mmHg (35-46) Arterial Blood pO2 at Patient Temp 162 mmHg (75-108) Arterial Blood HCO3 21 mmol/L (21-28) Arterial Blood Base Excess -1 mmol/L (-3-3) FiO2 40% vent Laboratory Tests Test 04/08/21 11:50 04/08/21 18:37 04/08/21 23:57 04/09/21 06:25 Glucose (Fingerstick) 196 mg/dL (70-99) 241 mg/dL (70-99) 184 mg/dL (70-99) White Blood Count 13.9 x10^3/uL (4.0-11.0) Red Blood Count 3.23 x10^6/uL (3.50-5.40) Hemoglobin 9.5 g/dL (12.0-15.5) Hematocrit 28.3 % (36.0-47.0) Mean Corpuscular Volume 88 fL (79-100) Mean Corpuscular Hemoglobin 29 pg (25-35) Mean Corpuscular Hemoglobin Concent 34 g/dL (31-37) Red Cell Distribution Width 14.4 % (11.5-14.5) Platelet Count 307 x10^3/uL (140-400) Neutrophils (%) (Auto) 77 % (31-73) Lymphocytes (%) (Auto) 13 % (24-48) Monocytes (%) (Auto) 10 % (0-9) Eosinophils (%) (Auto) 0 % (0-3) Basophils (%) (Auto) 0 % (0-3) Neutrophils # (Auto) 10.7 x10^3/uL (1.8-7.7) Lymphocytes # (Auto) 1.8 x10^3/uL (1.0-4.8) Monocytes # (Auto) 1.3 x10^3/uL (0.0-1.1) Eosinophils # (Auto) 0.0 x10^3/uL (0.0-0.7) Basophils # (Auto) 0.0 x10^3/uL (0.0-0.2) Sodium Level 137 mmol/L (136-145) Potassium Level 3.6 mmol/L (3.5-5.1) Chloride Level 97 mmol/L (98-107) Carbon Dioxide Level 25 mmol/L (21-32) Anion Gap 15 (6-14) Blood Urea Nitrogen 39 mg/dL (7-20) Creatinine 3.0 mg/dL (0.6-1.0) Estimated GFR (Cockcroft-Gault) 16.9 BUN/Creatinine Ratio 13 (6-20) Glucose Level 252 mg/dL (70-99) Calcium Level 9.8 mg/dL (8.5-10.1) Total Bilirubin 0.7 mg/dL (0.2-1.0) Aspartate Amino Transf (AST/SGOT) 16 U/L (15-37) Alanine Aminotransferase (ALT/SGPT) 10 U/L (14-59) Alkaline Phosphatase 185 U/L (46-116) Total Protein 9.1 g/dL (6.4-8.2) Albumin 3.8 g/dL (3.4-5.0) Albumin/Globulin Ratio 0.7 (1.0-1.7) Test 04/09/21 06:46 04/09/21 07:42 Glucose (Fingerstick) 259 mg/dL (70-99) O2 Saturation 98 % (92-99) Arterial Blood pH 7.54 (7.35-7.45) Arterial Blood pCO2 at Patient Temp 25 mmHg (35-46) Arterial Blood pO2 at Patient Temp 162 mmHg (75-108) Arterial Blood HCO3 21 mmol/L (21-28) Arterial Blood Base Excess -1 mmol/L (-3-3) FiO2 40% vent Microbiology 04/02/21 Urine Culture - Final, Complete 04/02/21 Blood Culture - Final, Complete NO GROWTH AFTER 5 DAYS 03/16/21 Gram Stain Evaluation - Final, Complete 03/16/21 Respiratory Culture - Final, Complete 03/16/21 Antimicrobic Susceptibility - Final, Complete Medications Current Medications Ondansetron HCl (Zofran Odt) 4 mg 1X ONCE PO Last administered on 02/06/21at 23:57; Start 02/06/21 at 23:30; Stop 02/06/21 at 23:31; Status DC Haloperidol Lactate (Haldol Inj) 2.5 mg 1X ONCE IM ; Start 02/07/21 at 02:30; Stop 02/07/21 at 03:56; Status DC Sodium Chloride 1,000 ml @ 1,000 mls/hr 1X ONCE IV Last administered on 02/07/21at 03:41; Start 02/07/21 at 02:30; Stop 02/07/21 at 03:29; Status DC Hydromorphone HCl (Dilaudid) 1 mg 1X ONCE IVP Last administered on 02/07/21at 04:13; Start 02/07/21 at 04:30; Stop 02/07/21 at 04:31; Status DC Sodium Chloride 1,000 ml @ 1,000 mls/hr 1X ONCE IV Last administered on 02/07/21at 10:39; Start 02/07/21 at 06:30; Stop 02/07/21 at 07:29; Status DC Insulin Human Regular 100 unit/ Sodium Chloride 101 ml @ 0 mls/hr CONT PRN PRN IV PER PROTOCOL; Start 02/07/21 at 06:00; Stop 02/07/21 at 16:54; Status DC Potassium Chloride/Water 100 ml @ 100 mls/hr PRN Q1HR PRN IV SEE COMMENTS; Start 02/07/21 at 06:00; Stop 02/07/21 at 16:54; Status DC Potassium Chloride/Water 100 ml @ 100 mls/hr PRN Q1HR PRN IV SEE COMMENTS; Start 02/07/21 at 06:00; Stop 02/07/21 at 16:54; Status DC Potassium Chloride/Water 100 ml @ 100 mls/hr PRN Q1HR PRN IV SEE COMMENTS; Start 02/07/21 at 06:00; Stop 02/07/21 at 16:54; Status DC Insulin Human Regular 100 ml @ 10 mls/hr 1X ONCE IV Last administered on 02/07/21at 09:31; Start 02/07/21 at 06:30; Stop 02/07/21 at 16:54; Status DC Sennosides (Senna) 17.2 mg PRN BID PRN PO CONSTIPATION Last administered on 02/22/21at 08:29; Start 02/07/21 at 08:45 Docusate Sodium (Colace) 100 mg PRN DAILY PRN PO HARD STOOLS; Start 02/07/21 at 08:45; Stop 02/23/21 at 10:47; Status DC Ondansetron HCl (Zofran) 4 mg PRN Q6HRS PRN IVP NAUSEA/VOMITING 1ST CHOICE Last administered on 04/07/21at 22:49; Start 02/07/21 at 08:45 Dextrose (Dextrose 50%-Water Syringe) 12.5 gm PRN Q15MIN PRN IV SEE COMMENTS; Start 02/07/21 at 08:45; Stop 02/08/21 at 16:56; Status DC Sodium Chloride 1,000 ml @ 200 mls/hr Q5H IV Last administered on 02/08/21at 04:05; Start 02/07/21 at 08:45; Stop 02/08/21 at 08:44; Status DC Acetaminophen (Tylenol) 650 mg PRN Q4HRS PRN PO FEVER > 101 Last administered on 02/13/21at 21:35; Start 02/07/21 at 08:45; Stop 02/17/21 at 10:45; Status DC Prochlorperazine Edisylate (Compazine) 10 mg PRN Q6HRS PRN IV NAUSEA/VOMITING 2ND CHOICE Last administered on 04/08/21at 04:05; Start 02/07/21 at 08:45 Insulin Glargine (Lantus Syringe) 5 unit BID SQ Last administered on 02/08/21at 10:24; Start 02/07/21 at 17:00; Stop 02/08/21 at 20:11; Status DC Insulin Human Lispro (HumaLOG) 0-7 UNITS Q4HRS SQ Last administered on 02/08/21at 00:00; Start 02/07/21 at 20:00; Stop 02/08/21 at 00:50; Status DC Dextrose (Dextrose 50%-Water Syringe) 12.5 gm PRN Q15MIN PRN IV SEE COMMENTS; Start 02/07/21 at 17:00; Stop 02/17/21 at 10:45; Status DC Ondansetron HCl (Zofran) 4 mg 1X ONCE IVP Last administered on 02/07/21at 20:06; Start 02/07/21 at 20:00; Stop 02/07/21 at 20:07; Status DC Insulin Human Lispro (HumaLOG) 0-9 UNITS Q4HRS SQ Last administered on 02/13/21at 17:36; Start 02/08/21 at 04:00; Stop 02/13/21 at 21:44; Status DC Metoclopramide HCl (Reglan Vial) 10 mg PRN Q6HRS PRN IVP NAUSEA/VOMITING 3RD CHOICE Last administered on 02/12/21at 15:51; Start 02/08/21 at 00:45 Labetalol HCl (Normodyne Iv Push) 10 mg PRN Q2HR PRN IVP HYPERTENSION, 1st choice Last administered on 04/08/21at 05:11; Start 02/08/21 at 00:45 Acetaminophen (Tylenol Supp) 650 mg PRN Q6HRS PRN MA FEVER > 101; Start 02/08/21 at 01:45; Stop 02/17/21 at 10:45; Status DC Lorazepam (Ativan Inj) 0.5 mg PRN Q6HRS PRN IVP ANXIETY / AGITATION Last administered on 04/01/21at 15:32; Start 02/08/21 at 10:00 Enalaprilat (Vasotec Inj) 0.625 mg Q6HRS IVP Last administered on 02/09/21at 13:42; Start 02/08/21 at 16:15; Stop 02/09/21 at 16:01; Status DC Insulin Glargine (Lantus Syringe) 15 unit BID SQ Last administered on 02/17/21at 20:29; Start 02/08/21 at 21:00; Stop 02/18/21 at 08:09; Status DC Insulin Human Lispro (HumaLOG) 3 units TIDAC SQ Last administered on 02/16/21at 09:10; Start 02/09/21 at 07:30; Stop 02/16/21 at 23:51; Status DC Carvedilol (Coreg) 6.25 mg BIDWMEALS PO Last administered on 02/23/21at 08:06; Start 02/08/21 at 20:30; Stop 02/23/21 at 15:50; Status DC Atorvastatin Calcium (Lipitor) 40 mg HS PO Last administered on 04/08/21at 21:47; Start 02/08/21 at 21:00 Lisinopril (Prinivil) 5 mg DAILY PO Last administered on 02/09/21at 09:48; Start 02/09/21 at 09:00; Stop 02/09/21 at 13:04; Status DC Sodium Chloride 1,000 ml @ 100 mls/hr Q10H IV Last administered on 02/16/21at 12:15; Start 02/09/21 at 07:00; Stop 02/17/21 at 15:37; Status DC Enoxaparin Sodium (Lovenox Per Pharmacy Prophylaxis Dosing) 1 each PRN DAILY PRN MC SEE COMMENTS; Start 02/09/21 at 06:45; Stop 03/12/21 at 15:38; Status DC Enoxaparin Sodium (Lovenox 40mg Syringe) 40 mg BID SQ Last administered on 03/08/21at 08:26; Start 02/09/21 at 09:00; Stop 03/08/21 at 13:56; Status DC Lisinopril (Prinivil) 10 mg DAILY PO Last administered on 02/16/21at 09:06; Start 02/10/21 at 09:00; Stop 02/17/21 at 08:29; Status DC Hydromorphone HCl (Dilaudid) 2 mg PRN Q6HRS PRN IVP PAIN Last administered on 02/15/21at 22:00; Start 02/09/21 at 17:15; Stop 02/21/21 at 05:27; Status DC Benzonatate (Tessalon Perle) 100 mg [id number] PO Last administered on 02/16/21at 22: 07; Start 02/10/21 at 23:30; Stop 02/17/21 at 10:45; Status DC Guaifenesin (Robitussin Dm) 10 ml PRN Q6HRS PRN PO COUGH Last administered on 02/16/21at 09:06; Start 02/10/21 at 23:30 Remdesivir 200 mg/ Sodium Chloride 210 ml @ 210 mls/hr 1X ONCE IV Last a dministered on 02/11/21at 14:33; Start 02/11/21 at 13:00; Stop 02/12/21 at 11:55; Status DC Remdesivir 100 mg/ Sodium Chloride 230 ml @ 460 mls/hr Q24H IV ; Start 02/12/21 at 13:00; Stop 02/12/21 at 11:55; Status DC Hydralazine HCl (Apresoline Inj) 10 mg PRN Q4HRS PRN IVP ELEVATED BP, 2nd choice Last administered on 04/08/21at 05:49; Start 02/11/21 at 12:15 Ceftriaxone Sodium (Rocephin) 1 gm Q24H IVP Last administered on 02/11/21at 12:55; Start 02/11/21 at 12:30; Stop 02/12/21 at 11:55; Status DC Dexamethasone Sodium Phosphate (Decadron) 6 mg DAILY IVP Last administered on 02/12/21at 09:34; Start 02/11/21 at 13:00; Stop 02/12/21 at 11:55; Status DC Potassium Chloride (Klor-Con) 40 meq 1X ONCE PO Last administered on 02/13/21at 11:11; Start 02/13/21 at 10:30; Stop 02/13/21 at 10:47; Status DC Potassium Chloride (Klor-Con) 40 meq 1X ONCE PO Last administered on 02/13/21at 13:21; Start 02/13/21 at 12:00; Stop 02/13/21 at 12:01; Status DC Insulin Human Lispro (HumaLOG) 0-9 UNITS QIDACHS SQ Last administered on 02/15/21at 22:01; Start 02/14/21 at 07:30; Stop 02/16/21 at 23:51; Status DC Remdesivir 100 mg/ Sodium Chloride 230 ml @ 460 mls/hr Q24H IV Last administered on 02/18/21at 11:52; Start 02/15/21 at 12:00; Stop 02/18/21 at 12:29; Status DC Dexamethasone Sodium Phosphate (Decadron) 6 mg DAILY IVP Last administered on 02/24/21at 08:12; Start 02/15/21 at 09:00; Stop 02/25/21 at 06:41; Status DC Dexamethasone Sodium Phosphate (Decadron) 6 mg 1X ONCE IVP ; Start 02/14/21 at 12:45; Stop 02/14/21 at 12:46; Status DC Ceftriaxone Sodium (Rocephin) 1 gm Q24H IVP Last administered on 02/22/21at 12:42; Start 02/14/21 at 13:00; Stop 02/23/21 at 07:34; Status DC Azithromycin 250 mg/Sodium Chloride 250 ml @ 250 mls/hr Q24H IV Last administered on 02/18/21at 11:51; Start 02/14/21 at 13:30; Stop 02/18/21 at 14:29; Status DC Dexamethasone Sodium Phosphate (Decadron) 6 mg 1X ONCE IVP Last administered on 02/14/21at 18:17; Start 02/14/21 at 17:15; Stop 02/14/21 at 17:16; Status DC Alteplase, Recombinant (Cathflo For Central Catheter Clearance) 1 mg 1X ONCE INT CAT Last administered on 02/16/21at 08:41; Start 02/16/21 at 08:00; Stop 02/16/21 at 08:01; Status DC Dexmedetomidine HCl 400 mcg/ Sodium Chloride 100 ml @ 0 mls/hr CONT PRN IV PER PROTOCOL Last administered on 02/17/21at 20:27; Start 02/16/21 at 12:00; Stop 02/27/21 at 09:37; Status DC Sodium Chloride 500 ml @ 500 mls/hr 1X PRN PRN IV SEE COMMENTS; Start 02/16/21 at 12:00 Atropine Sulfate (ATROPINE 0.5mg SYRINGE) 0.5 mg PRN Q5MIN PRN IV SEE COMMENTS; Start 02/16/21 at 12:00 Lactobacillus Rhamnosus (Culturelle) 1 cap BID PO Last administered on 02/16/21at 22:02; Start 02/16/21 at 21:00; Stop 02/17/21 at 10:45; Status DC Famotidine (Pepcid Vial) 20 mg BID IVP Last administered on 03/09/21at 09:27; Start 02/16/21 at 21:00; Stop 03/09/21 at 10:41; Status DC Furosemide (Lasix) 20 mg 1X ONCE IVP Last administered on 02/16/21at 18:38; Start 02/16/21 at 18:30; Stop 02/16/21 at 18:34; Status DC Furosemide (Lasix) 20 mg 1X ONCE IVP Last administered on 02/16/21at 22:18; Start 02/16/21 at 22:15; Stop 02/16/21 at 22:16; Status DC Insulin Human Lispro (HumaLOG) 3 units Q6HRS SQ Last administered on 02/18/21at 05:40; Start 02/17/21 at 00:00; Stop 02/18/21 at 08:09; Status DC Insulin Human Lispro (HumaLOG) 0-9 UNITS Q6HRS SQ Last administered on 04/09/21at 06:47; Start 02/17/21 at 00:00 Lisinopril (Prinivil) 20 mg DAILY PO Last administered on 02/27/21at 09:10; Start 02/17/21 at 09:00; Stop 03/09/21 at 10:43; Status DC Fentanyl Citrate 30 ml @ 0 mls/hr CONT PRN IV SEE PROTOCOL Last administered on 03/15/21at 16:08; Start 02/17/21 at 10:00; Stop 03/15/21 at 23:00; Status DC Propofol 100 ml @ 0 mls/hr CONT PRN IV PER PROTOCOL Last administered on 04/08/21at 02:39; Start 02/17/21 at 10:00 Glycerin/ Hypromellose/ Polyethylene (Artificial Tears) 1 drop PRN Q1HR PRN OU DRY EYE Last administered on 04/05/21at 08:02; Start 02/17/21 at 10:00 Midazolam HCl 100 ml @ 0 mls/hr CONT PRN IV SEE PROTOCOL Last administered on 03/20/21at 17:18; Start 02/17/21 at 10:00 Succinylcholine Chloride (Anectine) 200 mg STK-MED ONCE .ROUTE ; Start 02/17/21 at 09:58; Stop 02/17/21 at 09:58; Status DC Acetaminophen (Tylenol) 650 mg PRN Q6HRS PRN PEG MILD PAIN / TEMP > 100.3'F Last administered on 04/09/21at 09:20; Start 02/17/21 at 10:45 Insulin Glargine (Lantus Syringe) 20 unit BID SQ Last administered on 02/18/21at 20:54; Start 02/18/21 at 09:00; Stop 02/19/21 at 07:47; Status DC Insulin Human Lispro (HumaLOG) 5 units Q6HRS SQ Last administered on 02/19/21at 06:23; Start 02/18/21 at 12:00; Stop 02/19/21 at 07:47; Status DC Insulin Glargine (Lantus Syringe) 25 unit BID SQ Last administered on 02/27/21at 20:42; Start 02/19/21 at 09:00; Stop 02/28/21 at 09:34; Status DC Insulin Human Lispro (HumaLOG) 8 units Q6HRS SQ Last administered on 02/19/21at 11:33; Start 02/19/21 at 12:00; Stop 02/19/21 at 12:32; Status DC Insulin Human Lispro (HumaLOG) 10 units Q6HRS SQ Last administered on 02/20/21at 06:38; Start 02/19/21 at 18:00; Stop 02/20/21 at 08:14; Status DC Insulin Human Lispro (HumaLOG) 12 units Q6HRS SQ Last administered on 02/27/21at 05:41; Start 02/20/21 at 12:00; Stop 02/28/21 at 15:38; Status DC Piperacillin Sod/ Tazobactam Sod (Zosyn Per Pharmacy) 1 each PRN DAILY PRN MC SEE COMMENTS; Start 02/23/21 at 07:45; Stop 03/17/21 at 10:04; Status DC Piperacillin Sod/ Tazobactam Sod 4.5 gm/Sodium Chloride 100 ml @ 200 mls/hr Q6HRS IV Last administered on 03/07/21at 06:12; Start 02/23/21 at 08:00; Stop 03/07/21 at 08:18; Status DC Docusate Sodium (Colace Solution) 100 mg BID PO Last administered on 04/09/21at 07:20; Start 02/23/21 at 12:00 Amlodipine Besylate (Norvasc) 5 mg DAILY NG Last administered on 02/27/21at 09:10; Start 02/24/21 at 09:00; Stop 03/09/21 at 10:43; Status DC Methylprednisolone Sodium Succinate (SOLU-Medrol 125MG VIAL) 80 mg Q8HRS IV Last administered on 02/26/21at 05:52; Start 02/25/21 at 09:00; Stop 02/26/21 at 07:09; Status DC Succinylcholine Chloride (Anectine) 200 mg STK-MED ONCE .ROUTE ; Start 02/17/21 at 10:00; Stop 02/25/21 at 08:40; Status DC Dexamethasone Sodium Phosphate (Decadron) 4 mg 1X ONCE IVP ; Start 02/26/21 at 10:00; Stop 02/26/21 at 07:15; Status DC Dexamethasone Sodium Phosphate (Decadron) 2 mg 1X ONCE IVP ; Start 02/27/21 at 09:00; Stop 02/26/21 at 07:15; Status DC Dexmedetomidine HCl 400 mcg/ Sodium Chloride 100 ml @ 0 mls/hr CONT PRN IV PER PROTOCOL Last administered on 04/09/21at 07:19; Start 02/27/21 at 09:45 Sodium Chloride 500 ml @ 500 mls/hr 1X PRN PRN IV SEE COMMENTS; Start 02/27/21 at 09:45; Status Cancel Alteplase, Recombinant (Cathflo) 2 mg 1X ONCE INT CAT Last administered on at 11:20; Start 02/27/21 at 11:00; Stop 02/27/21 at 11:01; Status DC Alteplase, Recombinant (Cathflo For Central Catheter Clearance) 1 mg 1X ONCE INT CAT Last administered on 02/27/21at 15:18; Start 02/27/21 at 14:30; Stop 02/27/21 at 14:36; Status DC Alteplase, Recombinant (Cathflo For Central Catheter Clearance) 1 mg 1X ONCE INT CAT Last administered on 02/27/21at 15:19; Start 02/27/21 at 14:30; Stop 02/27/21 at 14:36; Status DC Dextrose (Dextrose 50%-Water Syringe) 25 gm STK-MED ONCE IV ; Start 02/27/21 at 23:48; Stop 02/27/21 at 23:48; Status DC Dextrose (Dextrose 50%-Water Syringe) 25 gm 1X ONCE IV Last administered on 02/27/21at 23:55; Start 02/28/21 at 00:00; Stop 02/28/21 at 00:01; Status DC Insulin Glargine (Lantus Syringe) 20 unit BID SQ Last administered on 02/28/21at 21:06; Start 02/28/21 at 10:00; Stop 03/01/21 at 14:18; Status DC Dextrose (Dextrose 50%-Water Syringe) 12.5 gm PRN Q15MIN PRN IV SEE COMMENTS Last administered on 03/01/21at 12:55; Start 03/01/21 at 13:00 Insulin Glargine (Lantus Syringe) 15 unit QHS SQ Last administered on 03/05/21at 21:26; Start 03/01/21 at 21:00; Stop 03/06/21 at 07:17; Status DC Nystatin (Nystop) 1 reji BID TP Last administered on 04/09/21at 09:20; Start 03/02/21 at 21:00 Vancomycin HCl 1 gm/Sodium Chloride 250 ml @ 250 mls/hr Q12H IV ; Start 03/04/21 at 20:00; Status UNV Vancomycin HCl 2 gm/Sodium Chloride 500 ml @ 250 mls/hr 1X ONCE IV Last administered on 03/04/21at 19:26; Start 03/04/21 at 19:00; Stop 03/04/21 at 20:59; Status DC Vancomycin HCl (Vanco Per Pharmacy) 1 each PRN DAILY PRN MC SEE COMMENTS Last administered on 03/04/21at 19:47; Start 03/04/21 at 18:30; Stop 03/05/21 at 08:59; Status DC Vancomycin HCl 1.5 gm/Sodium Chloride 500 ml @ 250 mls/hr Q12H IV ; Start 03/05/21 at 07:30; Stop 03/05/21 at 08:58; Status DC Vancomycin HCl (Vancomycin Trough Level) 1 each 1X ONCE MC ; Start 03/06/21 at 07:00; Stop 03/06/21 at 07:01; Status Cancel Linezolid (Zyvox) 600 mg BID PO Last administered on 03/11/21at 20:33; Start 03/05/21 at 09:00; Stop 03/12/21 at 07:00; Status DC Insulin Glargine (Lantus Syringe) 15 unit BID SQ ; Start 03/06/21 at 09:00; Stop 03/06/21 at 07:25; Status DC Insulin Glargine (Lantus Syringe) 5 unit BID SQ Last administered on 04/09/21at 09:23; Start 03/06/21 at 09:00 Norepinephrine Bitartrate 8 mg/ Dextrose 258 ml @ 21.711 mls/ hr CONT PRN IV PER PROTOCOL Last administered on 03/19/21at 18:45; Start 03/06/21 at 13:45 Vecuronium [place] (Norcuron Bolus) 6 mg PRN Q2HRS PRN IV VENTILATOR COMPLIANCE Last administered on 03/16/21at 10:16; Start 03/06/21 at 14:30 Sodium Chloride 1,000 ml @ 1,000 mls/hr 1X ONCE IV Last administered on 03/06/21at 16:00; Start 03/06/21 at 16:00; Stop 03/06/21 at 19:16; Status DC Sodium Chloride 1,000 ml @ 1,000 mls/hr 1X ONCE IV Last administered on 03/06/21at 20:37; Start 03/06/21 at 19:15; Stop 03/06/21 at 20:14; Status DC Piperacillin Sod/ Tazobactam Sod 2.25 gm/Sodium Chloride 50 ml @ 100 mls/hr Q8HRS IV Last administered on 03/17/21at 05:58; Start 03/07/21 at 14:00; Stop 03/17/21 at 08:03; Status DC Fluconazole/ Sodium Chloride 100 ml @ 100 mls/hr Q24H IV Last administered on 03/16/21at 08:29; Start 03/07/21 at 09:00; Stop 03/17/21 at 08:03; Status DC Lidocaine HCl (Buffered Lidocaine 1%) 6 ml 1X ONCE INJ Last administered on 03/07/21at 14:10; Start 03/07/21 at 13:15; Stop 03/07/21 at 13:16; Status DC Lidocaine HCl (Buffered Lidocaine 1%) 3 ml STK-MED ONCE .ROUTE ; Start 03/07/21 at 13:25; Stop 03/07/21 at 13:25; Status DC Info (PHARMACY MONITORING -- do not chart) 1 each PRN DAILY PRN MC SEE COMMENTS; Start 03/07/21 at 20:45; Stop 03/10/21 at 10:23; Status DC Enoxaparin Sodium (Lovenox 30mg Syringe) 30 mg Q24H SQ Last administered on 03/12/21at 09:04; Start 03/08/21 at 09:00; Stop 03/12/21 at 15:38; Status DC Famotidine (Pepcid Vial) 20 mg DAILY IVP Last administered on 04/09/21at 07:21; Start 03/10/21 at 09:00 Sodium Chloride 1,000 ml @ 1,000 mls/hr Q1H PRN IV hypotension; Start 03/09/21 at 18:15; Stop 03/10/21 at 00:14; Status DC Albumin Human 200 ml @ 200 mls/hr 1X PRN PRN IV Hypotension Last administered on 03/09/21at 19:40; Start 03/09/21 at 18:15; Stop 03/10/21 at 00:14; Status DC Sodium Chloride 1,000 ml @ 400 mls/hr Q2H30M PRN IV PATENCY; Start 03/09/21 at 18:15; Stop 03/10/21 at 06:14; Status DC Info (PHARMACY MONITORING -- do not chart) 1 each PRN DAILY PRN MC SEE COMMENTS; Start 03/09/21 at 18:15; Stop 03/10/21 at 10:23; Status DC Info (PHARMACY MONITORING -- do not chart) 1 each PRN DAILY PRN MC SEE COMMENTS; Start 03/09/21 at 18:15; Status Cancel Vitamin A/Vitamin D (Vitamin A & D Ointment) 1 reji PRN Q1HR PRN TP SKIN PROTECTION Last administered on 03/20/21at 09:34; Start 03/10/21 at 01:45 Sodium Chloride 1,000 ml @ 1,000 mls/hr Q1H PRN IV hypotension; Start 03/11/21 at 08:15; Stop 03/11/21 at 14:14; Status DC Albumin Human 200 ml @ 200 mls/hr 1X PRN PRN IV Hypotension; Start 03/11/21 at 08:15; Stop 03/11/21 at 14:14; Status DC Sodium Chloride (Normal Saline Flush) 10 ml 1X PRN PRN IV AP catheter pack; Start 03/11/21 at 08:15; Stop 03/12/21 at 08:14; Status DC Sodium Chloride (Normal Saline Flush) 10 ml 1X PRN PRN IV [employer] catheter pack; Start 03/11/21 at 08:15; Stop 03/12/21 at 08:14; Status DC Sodium Chloride 1,000 ml @ 400 mls/hr Q2H30M PRN IV PATENCY; Start 03/11/21 at 08:15; Stop 03/11/21 at 20:14; Status DC Info (PHARMACY MONITORING -- do not chart) 1 each PRN DAILY PRN MC SEE COMMENTS; Start 03/11/21 at 08:15; Status UNV Info (PHARMACY MONITORING -- do not chart) 1 each PRN DAILY PRN MC SEE COMMENTS; Start 03/11/21 at 08:15; Status Cancel Heparin Sodium (Porcine) (Heparin Sodium) 5,000 unit Q8HRS SQ Last administered on 04/09/21at 06:43; Start 03/13/21 at 06:00 Multivitamins/ Minerals Therapeutic (Centrum Multivit-Mineral Liq) 5 ml DAILY PEG Last administered on 04/09/21at 07:21; Start 03/14/21 at 09:00 Info (PHARMACY MONITORING -- do not chart) 1 each PRN DAILY PRN MC SEE COMMENTS; Start 03/13/21 at 17:00; Status Cancel Piperacillin Sod/ Tazobactam Sod 3.375 gm/Sodium Chloride 50 ml @ 100 mls/hr Q6HRS IV ; Start 03/14/21 at 18:00; Status Cancel Fentanyl Citrate (Fentanyl 2ml Vial) 25 mcg PRN Q5MIN PRN IVP MILD PAIN 1-3; Start 03/17/21 at 06:00; Stop 03/17/21 at 19:00; Status DC Fentanyl Citrate (Fentanyl 2ml Vial) 50 mcg PRN Q5MIN PRN IVP MODERATE PAIN 4- 6; Start 03/17/21 at 06:00; Stop 03/17/21 at 19:00; Status DC Morphine Sulfate (Morphine Sulfate) 1 mg PRN Q10MIN PRN IVP SEVERE PAIN 7-10; Start 03/17/21 at 06:00; Stop 03/17/21 at 19:00; Status DC Ringer's Solution 1,000 ml @ 30 mls/hr Q24H IV ; Start 03/17/21 at 06:00; Stop 03/17/21 at 17:59; Status DC Hydromorphone HCl (Dilaudid) 0.5 mg PRN Q10MIN PRN IVP SEVERE PAIN 7-10, 2nd CHOICE; Start 03/17/21 at 06:00; Stop 03/17/21 at 19:00; Status DC Fentanyl Citrate 55 ml @ 0 mls/hr CONT PRN IV SEE PROTOCOL Last administered on 04/04/21at 19:36; Start 03/15/21 at 16:30; Stop 04/08/21 at 07:07; Status DC Fentanyl Citrate 55 ml @ 2 mls/hr CONT PRN IV SEE PROTOCOL; Start 03/15/21 at 21:45; Stop 03/15/21 at 21:34; Status DC Linezolid/Dextrose 300 ml @ 300 mls/hr Q12HR IV Last administered on 03/17/21at 21:44; Start 03/16/21 at 10:00; Stop 03/18/21 at 07:37; Status DC Sodium Chloride 1,000 ml @ 1,000 mls/hr Q1H PRN IV hypotension; Start 03/16/21 at 12:45; Stop 03/16/21 at 18:44; Status DC Albumin Human 200 ml @ 200 mls/hr 1X PRN PRN IV Hypotension; Start 03/16/21 at 12:45; Stop 03/16/21 at 18:44; Status DC Sodium Chloride (Normal Saline Flush) 10 ml 1X PRN PRN IV AP catheter pack; Start 03/16/21 at 12:45; Stop 03/17/21 at 12:44; Status DC Sodium Chloride (Normal Saline Flush) 10 ml 1X PRN PRN IV 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 catheter pack; Start 03/16/21 at 12:45; Stop 03/17/21 at 12:44; Status DC Sodium Chloride 1,000 ml @ 400 mls/hr Q2H30M PRN IV PATENCY; Start 03/16/21 at 12:45; Stop 03/17/21 at 00:44; Status DC Info (PHARMACY MONITORING -- do not chart) 1 each PRN DAILY PRN MC SEE COMMENTS; Start 03/16/21 at 12:45; Status UNV Info (PHARMACY MONITORING -- do not chart) 1 each PRN DAILY PRN MC SEE COMMENTS; Start 03/16/21 at 12:45; Stop 03/18/21 at 10:14; Status DC Rocuronium [place] (Zemuron) 50 mg STK-MED ONCE .ROUTE ; Start 03/17/21 at 10:09; Stop 03/17/21 at 10:09; Status DC Bupivacaine HCl/ Epinephrine Bitart (Sensorcain-Epi 0.5%-1:[id number] Mpf) 30 ml STK-MED ONCE .ROUTE ; Start 03/17/21 at 10:47; Stop 03/17/21 at 10:47; Status DC Cellulose (Surgicel Fibrillar 1x2) 1 each STK-MED ONCE .ROUTE Last administered on 03/17/21at 11:56; Start 03/17/21 at 10:47; Stop 03/17/21 at 10:47; Status DC Phenylephrine HCl (PHENYLEPHRINE in 0.9% NACL PF) 1 mg STK-MED ONCE IV ; Start 03/17/21 at 10:56; Stop 03/17/21 at 10:56; Status DC Ephedrine Sulfate (ePHEDrine PF IN SALINE SYRINGE) 50 mg STK-MED ONCE IV ; Start 03/17/21 at 10:56; Stop 03/17/21 at 10:56; Status DC Rocuronium [place] (Zemuron) 50 mg STK-MED ONCE .ROUTE ; Start 03/17/21 at 10:56; Stop 03/17/21 at 10:56; Status DC Albuterol Sulfate (Ventolin Hfa) 60 puff STK-MED ONCE INH ; Start 03/17/21 at 11:29; Stop 03/17/21 at 11:29; Status DC Rocuronium [place] (Zemuron) 50 mg STK-MED ONCE .ROUTE ; Start 03/17/21 at 11:39; Stop 03/17/21 at 11:39; Status DC Sevoflurane (Ultane) 30 ml STK-MED ONCE IH ; Start 03/17/21 at 12:20; Stop 03/17/21 at 12:20; Status DC Sodium Chloride 1,000 ml @ 1,000 mls/hr Q1H PRN IV hypotension; Start 03/17/21 at 13:30; Stop 03/17/21 at 19:29; Status DC Albumin Human 200 ml @ 200 mls/hr 1X PRN PRN IV Hypotension; Start 03/17/21 at 13:30; Stop 03/17/21 at 19:29; Status DC Acetaminophen (Tylenol) 500 mg 1X PRN PRN PO MILD PAIN / TEMP > 100.3'F; Start 03/17/21 at 13:30; Stop 03/18/21 at 13:29; Status DC Diphenhydramine HCl (Benadryl) 25 mg 1X PRN PRN IV ITCHING; Start 03/17/21 at 13:30; Stop 03/18/21 at 13:29; Status DC Diphenhydramine HCl (Benadryl) 25 mg 1X PRN PRN IV ITCHING; Start 03/17/21 at 13:30; Stop 03/18/21 at 13:29; Status DC Sodium Chloride 1,000 ml @ 400 mls/hr Q2H30M PRN IV PATENCY; Start 03/17/21 at 13:30; Stop 03/18/21 at 01:29; Status DC Info (PHARMACY MONITORING -- do not chart) 1 each PRN DAILY PRN MC SEE COMMENTS; Start 03/17/21 at 13:30; Status UNV Info (PHARMACY MONITORING -- do not chart) 1 each PRN DAILY PRN MC SEE COMMENTS; Start 03/17/21 at 13:30; Status Cancel Albumin Human 100 ml @ 100 mls/hr 1X ONCE IV Last administered on 03/17/21at 15:40; Start 03/17/21 at 14:15; Stop 03/17/21 at 15:19; Status DC Albumin Human 50 ml @ 50 mls/hr 1X ONCE IV ; Start 03/17/21 at 14:15; Stop 03/17/21 at 15:08; Status DC Albumin Human 100 ml @ 100 mls/hr 1X ONCE IV Last administered on 03/17/21at 15:41; Start 03/17/21 at 14:15; Stop 03/17/21 at 15:19; Status DC Multi-Ingred Cream/Lotion/Oil/ Oint (Artificial Tears Eye Ointment) 1 reji PRN Q1HR PRN OU DRY EYE, 1ST CHOICE Last administered on 03/20/21at 15:55; Start 03/17/21 at 17:30 Sodium Chloride 1,000 ml @ 1,000 mls/hr Q1H PRN IV hypotension; Start 03/18/21 at 11:00; Stop 03/18/21 at 16:59; Status DC Albumin Human 200 ml @ 200 mls/hr 1X PRN PRN IV Hypotension Last administered on 03/18/21at 12:49; Start 03/18/21 at 11:00; Stop 03/18/21 at 16:59; Status DC Sodium Chloride 1,000 ml @ 400 mls/hr Q2H30M PRN IV PATENCY; Start 03/18/21 at 11:00; Stop 03/18/21 at 22:59; Status DC Info (PHARMACY MONITORING -- do not chart) 1 each PRN DAILY PRN MC SEE COMMENTS; Start 03/18/21 at 11:00; Status Cancel Info (PHARMACY MONITORING -- do not chart) 1 each PRN DAILY PRN MC SEE COMMENTS; Start 03/18/21 at 11:00; Stop 03/21/21 at 12:46; Status DC Meropenem 1 gm/ Sodium Chloride 100 ml @ 200 mls/hr Q24H IV Last administered on 04/08/21at 17:09; Start 03/18/21 at 17:00 Sodium Chloride 1,000 ml @ 1,000 mls/hr Q1H PRN IV hypotension; Start 03/19/21 at 17:15; Stop 03/19/21 at 23:14; Status DC Albumin Human 200 ml @ 200 mls/hr 1X PRN PRN IV Hypotension; Start 03/19/21 at 17:15; Stop 03/19/21 at 23:14; Status DC Sodium Chloride 1,000 ml @ 400 mls/hr Q2H30M PRN IV PATENCY; Start 03/19/21 at 17:15; Stop 03/20/21 at 05:14; Status DC Info (PHARMACY MONITORING -- do not chart) 1 each PRN DAILY PRN MC SEE COMMENTS; Start 03/19/21 at 17:15; Status UNV Info (PHARMACY MONITORING -- do not chart) 1 each PRN DAILY PRN MC SEE COMMENTS; Start 03/19/21 at 17:15; Status Cancel Sodium Chloride 1,000 ml @ 1,000 mls/hr Q1H PRN IV hypotension; Start 03/20/21 at 12:30; Stop 03/20/21 at 18:29; Status DC Albumin Human 200 ml @ 200 mls/hr 1X PRN PRN IV Hypotension Last administered on 03/20/21at 14:04; Start 03/20/21 at 12:30; Stop 03/20/21 at 18:29; Status DC Sodium Chloride (Normal Saline Flush) 10 ml 1X PRN PRN IV AP catheter pack; Start 03/20/21 at 12:30; Stop 03/21/21 at 12:29; Status DC Sodium Chloride (Normal Saline Flush) 10 ml 1X PRN PRN IV INDEPENDENT [employer]OR catheter pack; S tart 03/20/21 at 12:30; Stop 03/21/21 at 12:29; Status DC Sodium Chloride 1,000 ml @ 400 mls/hr Q2H30M PRN IV PATENCY; Start 03/20/21 at 12:30; Stop 03/21/21 at 00:29; Status DC Info (PHARMACY MONITORING -- do not chart) 1 each PRN DAILY PRN MC SEE COMM ENTS; Start 03/20/21 at 12:30; Stop 03/21/21 at 12:47; Status DC Info (PHARMACY MONITORING -- do not chart) 1 each PRN DAILY PRN MC SEE COMMENTS; Start 03/20/21 at 12:30; Status Cancel Cefazolin Sodium/ Dextrose 50 ml @ 100 mls/hr 1X PREOP ONCE IV ; Start 03/23/21 at 13:00; Stop 03/22/21 at 06:30; Status DC Fentanyl Citrate (Fentanyl 2ml Vial) 25 mcg PRN Q5MIN PRN IVP MILD PAIN 1-3; Start 03/23/21 at 06:00; Stop 03/24/21 at 05:59; Status DC Fentanyl Citrate (Fentanyl 2ml Vial) 50 mcg PRN Q5MIN PRN IVP MODERATE PAIN 4- 6; Start 03/23/21 at 06:00; Stop 03/24/21 at 05:59; Status DC Ringer's Solution 1,000 ml @ 30 mls/hr Q24H IV ; Start 03/23/21 at 06:00; Stop 03/23/21 at 17:59; Status Cancel Sodium Chloride 1,000 ml @ 1,000 mls/hr Q1H PRN IV hypotension; Start 03/21/21 at 14:45; Stop 03/21/21 at 20:44; Status DC Albumin Human 200 ml @ 200 mls/hr 1X PRN PRN IV Hypotension Last administered on 03/21/21at 15:36; Start 03/21/21 at 14:45; Stop 03/21/21 at 20:44; Status DC Sodium Chloride 1,000 ml @ 400 mls/hr Q2H30M PRN IV PATENCY; Start 03/21/21 at 14:45; Stop 03/22/21 at 02:44; Status DC Info (PHARMACY MONITORING -- do not chart) 1 each PRN DAILY PRN MC SEE COMMENTS; Start 03/21/21 at 15:30; Status UNV Info (PHARMACY MONITORING -- do not chart) 1 each PRN DAILY PRN MC SEE COMMENTS; Start 03/21/21 at 15:30; Status Cancel Daptomycin 480 mg/ Sodium Chloride 50 ml @ 100 mls/hr QTUTHSA@1900 IV Last administered on 03/21/21at 20:17; Start 03/21/21 at 19:00; Stop 03/22/21 at 13:28; Status DC Micafungin Sodium 100 mg/Dextrose 100 ml @ 100 mls/hr Q24H IV Last administered on 03/24/21at 16:36; Start 03/21/21 at 18:00; Stop 03/25/21 at 10:27; Status DC Daptomycin 480 mg/ Sodium Chloride 50 ml @ 100 mls/hr QMWF IV Last administered on 03/25/21at 19:52; Start 03/23/21 at 16:00; Stop 03/26/21 at 10:29; Status DC Sodium Chloride 1,000 ml @ 1,000 mls/hr Q1H PRN IV hypotension; Start 03/23/21 at 10:45; Stop 03/23/21 at 16:44; Status DC Sodium Chloride 1,000 ml @ 400 mls/hr Q2H30M PRN IV PATENCY; Start 03/23/21 at 10:45; Stop 03/23/21 at 22:44; Status DC Info (PHARMACY MONITORING -- do not chart) 1 each PRN DAILY PRN MC SEE PATRICIA TS; Start 03/23/21 at 10:45; Stop 03/25/21 at 12:38; Status DC Cefazolin Sodium/ Dextrose (Ancef 2gm Premix) 2 gm STK-MED ONCE IV ; Start 03/23/21 at 13:00; Stop 03/24/21 at 11:58; Status DC Sodium Chloride 1,000 ml @ 1,000 mls/hr Q1H PRN IV hypotension; Start 03/25/21 at 12:30; Stop 03/25/21 at 18:29; Status DC Albumin Human 200 ml @ 200 mls/hr 1X PRN PRN IV Hypotension; Start 03/25/21 at 12:30; Stop 03/25/21 at 18:29; Status DC Sodium Chloride (Normal Saline Flush) 10 ml 1X PRN PRN IV AP catheter pack; Start 03/25/21 at 12:30; Stop 03/26/21 at 12:29; Status DC Sodium Chloride (Normal Saline Flush) 10 ml 1X PRN PRN IV 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 CONTRACTOR catheter 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; Start 03/25/21 at 12:30; Stop 03/26/21 at 12:29; Status DC Sodium Chloride 1,000 ml @ 400 mls/hr Q2H30M PRN IV PATENCY; Start 03/25/21 at 12:30; Stop 03/26/21 at 00:29; Status DC Info (PHARMACY MONITORING -- do not chart) 1 each PRN DAILY PRN MC SEE COMMENTS; Start 03/25/21 at 12:30; Stop 03/25/21 at 12:38; Status DC Info (PHARMACY MONITORING -- do not chart) 1 each PRN DAILY PRN MC SEE COMMENTS; Start 03/25/21 at 12:30; Status Cancel Furosemide (Lasix) 40 mg 1X ONCE IVP Last administered on 03/26/21at 09:54; Start 03/26/21 at 10:00; Stop 03/26/21 at 10:01; Status DC Fentanyl Citrate (Fentanyl 2ml Vial) 25 mcg PRN Q5MIN PRN IVP MILD PAIN 1-3; Start 03/27/21 at 06:00; Stop 03/28/21 at 05:59; Status DC Fentanyl Citrate (Fentanyl 2ml Vial) 50 mcg PRN Q5MIN PRN IVP MODERATE PAIN 4- 6; Start 03/27/21 at 06:00; Stop 03/28/21 at 05:59; Status DC Morphine Sulfate (Morphine Sulfate) 1 mg PRN Q10MIN PRN IVP SEVERE PAIN 7-10; Start 03/27/21 at 06:00; Stop 03/28/21 at 05:59; Status DC Ringer's Solution 1,000 ml @ 30 mls/hr Q24H IV ; Start 03/27/21 at 06:00; Stop 03/27/21 at 17:59; Status DC Hydromorphone HCl (Dilaudid) 0.5 mg PRN Q10MIN PRN IVP SEVERE PAIN 7-10, 2nd CHOICE; Start 03/27/21 at 06:00; Stop 03/28/21 at 05:59; Status DC Prochlorperazine Edisylate (Compazine) 5 mg PACU PRN PRN IVP NAUSEA, MRX1; Start 03/27/21 at 06:00; Stop 03/28/21 at 05:59; Status DC Info (PHARMACY MONITORING -- do not chart) 1 each PRN DAILY PRN MC SEE COMMENTS; Start 03/27/21 at 09:45; Stop 03/30/21 at 12:58; Status DC Info (PHARMACY MONITORING -- do not chart) 1 each PRN DAILY PRN MC SEE COMMENTS; Start 03/27/21 at 09:45; Status UNV Bupivacaine HCl/ Epinephrine Bitart (Sensorcain-Epi 0.5% Kit) 30 ml STK-MED ONCE .ROUTE Last administered on 03/27/21at 13:12; Start 03/27/21 at 10:05; Stop 03/27/21 at 10:05; Status DC Rocuronium [place] (Zemuron) 50 mg STK-MED ONCE .ROUTE ; Start 03/27/21 at 11:05; Stop 03/27/21 at 11:05; Status DC Propofol (Diprivan) 200 mg STK-MED ONCE IV ; Start 03/27/21 at 12:02; Stop 03/27/21 at 12:03; Status DC Rocuronium [place] (Zemuron) 50 mg STK-MED ONCE .ROUTE ; Start 03/27/21 at 13:16; Stop 03/27/21 at 13:17; Status DC Fentanyl Citrate (Fentanyl 2ml Vial) 100 mcg STK-MED ONCE .ROUTE ; Start 03/27/21 at 13:18; Stop 03/27/21 at 13:18; Status DC Phenylephrine HCl (PHENYLEPHRINE in 0.9% NACL PF) 1 mg STK-MED ONCE IV ; Start 03/27/21 at 13:46; Stop 03/27/21 at 13:46; Status DC Neostigmine [place] (Neostigmine Methylsulfate) 5 mg STK-MED ONCE .ROUTE ; Start 03/27/21 at 14:06; Stop 03/27/21 at 14:07; Status DC Glycopyrrolate (Robinul) 1 mg STK-MED ONCE .ROUTE ; Start 03/27/21 at 14:07; Stop 03/27/21 at 14:07; Status DC Sevoflurane (Ultane) 60 ml STK-MED ONCE IH ; Start 03/27/21 at 14:19; Stop 03/27/21 at 14:20; Status DC Sodium Chloride (Normal Saline Flush) 3 ml QSHIFT PRN IV AFTER MEDS AND BLOOD DRAWS; Start 03/27/21 at 14:30 Naloxone HCl (Narcan) 0.4 mg PRN Q2MIN PRN IV SEE INSTRUCTIONS; Start 03/27/21 at 14:30 Sodium Chloride 1,000 ml @ 25 mls/hr Q24H IV Last administered on 03/28/21at 14:30; Start 03/27/21 at 14:30; Stop 03/29/21 at 14:07; Status DC Furosemide (Lasix) 40 mg 1X ONCE IVP Last administered on 03/29/21at 15:22; Start 03/29/21 at 15:00; Stop 03/29/21 at 15:02; Status DC Info (PHARMACY MONITORING -- do not chart) 1 each PRN DAILY PRN MC SEE COMMENTS; Start 03/30/21 at 13:00; Status Cancel Albumin Human 100 ml @ 100 mls/hr 1X ONCE IV Last administered on 03/30/21at 15:44; Start 03/30/21 at 15:45; Stop 03/30/21 at 16:44; Status DC Amlodipine Besylate (Norvasc) 10 mg DAILY PO Last administered on 04/09/21at 07:20; Start 03/31/21 at 09:00 Haloperidol Lactate (Haldol Inj) 5 mg Q8HRS IVP Last administered on 04/07/21at 05:51; Start 04/01/21 at 11:30; Stop 04/07/21 at 14:58; Status DC Sodium Chloride 1,000 ml @ 1,000 mls/hr Q1H PRN IV hypotension; Start 04/01/21 at 13:30; Stop 04/01/21 at 19:29; Status DC Sodium Chloride 1,000 ml @ 400 mls/hr Q2H30M PRN IV PATENCY; Start 04/01/21 at 13:30; Stop 04/02/21 at 01:29; Status DC Info (PHARMACY MONITORING -- do not chart) 1 each PRN DAILY PRN MC SEE COMMENTS; Start 04/01/21 at 13:30; Status Cancel Daptomycin 500 mg/ Sodium Chloride 50 ml @ 100 mls/hr Q48H IV Last administered on 04/08/21at 13:14; Start 04/02/21 at 10:00 Sodium Chloride 1,000 ml @ 1,000 mls/hr Q1H PRN IV hypotension; Start 04/03/21 at 08:15; Stop 04/03/21 at 14:14; Status DC Sodium Chloride 1,000 ml @ 400 mls/hr Q2H30M PRN IV PATENCY; Start 04/03/21 at 08:15; Stop 04/03/21 at 20:14; Status DC Info (PHARMACY MONITORING -- do not chart) 1 each PRN DAILY PRN MC SEE COMMENTS; Start 04/03/21 at 08:15; Status Cancel Albumin Human 200 ml @ 200 mls/hr 1X PRN PRN IV Hypotension Last administered on 04/03/21at 09:18; Start 04/03/21 at 09:00; Stop 04/03/21 at 14:59; Status DC Potassium Chloride/Water 100 ml @ 100 mls/hr Q1H IV Last administered on 04/04/21at 09:26; Start 04/04/21 at 07:00; Stop 04/04/21 at 08:59; Status DC Magnesium Sulfate 50 ml @ 25 mls/hr PRN DAILY PRN IV for Mag < 1.7 on am labs; Start 04/04/21 at 13:00 Potassium Chloride/Water 100 ml @ 50 mls/hr PRN Q6HRS PRN IV For K < 3.7 Last administered on 04/06/21at 09:09; Start 04/04/21 at 13:00 Potassium Chloride/Water 100 ml @ 50 mls/hr PRN Q2HR PRN IV total of 40mEq for K < 3.5; Start 04/04/21 at 13:00 Potassium Chloride/Water 100 ml @ 100 mls/hr Q1H IV Last administered on 04/04/21at 15:12; Start 04/04/21 at 14:00; Stop 04/04/21 at 15:59; Status DC Albumin Human 200 ml @ 200 mls/hr 1X PRN PRN IV Hypotension Last administered on 04/06/21at 10:43; Start 04/06/21 at 08:45; Stop 04/06/21 at 14:44; Status DC Sodium Chloride 1,000 ml @ 400 mls/hr Q2H30M PRN IV PATENCY; Start 04/06/21 at 08:45; Stop 04/06/21 at 20:44; Status DC Info (PHARMACY MONITORING -- do not chart) 1 each PRN DAILY PRN MC SEE COMMENTS; Start 04/06/21 at 08:45; Status Cancel Fentanyl Citrate 30 ml @ 0 mls/hr CONT PRN PRN IV PER PROTOCOL Last administered on 04/09/21at 00:54; Start 04/08/21 at 07:15 Info (PHARMACY MONITORING -- do not chart) 1 each PRN DAILY PRN MC SEE COMMENTS; Start 04/08/21 at 08:30; Status UNV Info (PHARMACY MONITORING -- do not chart) 1 each PRN DAILY PRN MC SEE COMMENTS; Start 04/08/21 at 08:30 Sodium Chloride 500 ml @ 500 mls/hr 1X ONCE IV Last administered on 04/08/21at 17:10; Start 04/08/21 at 16:45; Stop 04/08/21 at 17:44; Status DC Active Scripts Active Reported Novolog Flexpen (Insulin Aspart) 100 Unit/1 Ml Insuln.pen 3-7 SQ TIDACHC Lisinopril 5 Mg Tablet 1 Tab PO DAILY Lantus Solostar (Insulin Glargine,Hum.rec.anlog) 100 Unit/1 Ml Insuln.pen 5 Unit SQ QHS Atorvastatin Calcium 40 Mg Tablet 40 Mg PO HS Vitals/I & O Vital Sign - Last 24 Hours 04/08/21 04/08/21 04/08/21 04/08/21 09:56 10:00 11:00 11:41 Pulse 111 107 Resp 18 18 B/P (MAP) 170/91 (117) 103/75 (84) Pulse Ox 100 100 100 100 O2 Delivery Ventilator Ventilator Ventilator Ventilator 04/08/21 04/08/21 04/08/21 04/08/21 12:00 12:00 13:00 13:53 Temp 98.9 98.9 Pulse 108 104 Resp 18 22 B/P (MAP) 101/71 (81) 124/55 (78) Pulse Ox 100 100 100 O2 Delivery Mechanical Ventilator Ventilator Ventilator Ventilator 04/08/21 04/08/21 04/08/21 04/08/21 14:00 15:00 15:42 16:00 Temp 99.9 99.9 Pulse 108 110 114 Resp 18 18 23 B/P (MAP) 140/82 (101) 167/95 (119) 171/85 (113) Pulse Ox 100 98 100 100 O2 Delivery Ventilator Ventilator Ventilator Ventilator 04/08/21 04/08/21 04/08/21 04/08/21 16:00 17:00 17:47 18:00 Pulse 116 113 Resp 18 18 B/P (MAP) 156/82 (106) 189/95 (126) Pulse Ox 99 99 100 O2 Delivery Mechanical Ventilator Ventilator Ventilator Ventilator 04/08/21 04/08/21 04/08/21 04/08/21 19:00 20:00 20:05 20:15 Pulse 94 102 Resp 17 17 B/P (MAP) 113/55 (74) 170/86 (114) Pulse Ox 100 100 99 O2 Delivery Ventilator Mechanical Ventilator Ventilator Ventilator 04/08/21 04/08/21 04/08/21 04/08/21 21:00 22:00 22:10 23:00 Temp 99.8 99.8 Pulse 90 88 82 Resp 18 18 19 B/P (MAP) 122/62 (82) 123/60 (81) 148/72 (97) Pulse Ox 99 100 99 100 O2 Delivery Ventilator Ventilator Ventilator Ventilator 04/09/21 04/09/21 04/09/21 04/09/21 00:00 00:00 00:33 00:54 Temp 99.0 99.0 Pulse 104 Resp 20 20 B/P (MAP) 189/107 (134) Pulse Ox 100 100 O2 Delivery Ventilator Mechanical Ventilator Ventilator Ventilator 04/09/21 04/09/21 04/09/21 04/09/21 01:00 01:24 02:00 03:00 Pulse 88 95 76 Resp 18 18 17 B/P (MAP) 148/78 (101) 174/78 (110) 117/73 (88) Pulse Ox 100 O2 Delivery Ventilator Ventilator Ventilator Ventilator 04/09/21 04/09/21 04/09/21 04/09/21 03:06 04:00 04:00 05:00 Temp 98.4 98.4 Pulse 76 94 Resp 17 18 B/P (MAP) 141/77 (98) 171/84 (113) Pulse Ox 100 100 100 O2 Delivery Ventilator Ventilator Mechanical Ventilator Ventilator 04/09/21 04/09/21 04/09/21 04/09/21 06:00 07:00 07:20 07:39 Pulse 82 83 Resp 18 B/P (MAP) 127/65 (85) 158/80 (106) 158/80 Pulse Ox 100 100 100 O2 Delivery Ventilator Ventilator Ventilator 04/09/21 04/09/21 04/09/21 04/09/21 08:00 08:00 08:13 08:38 Temp 100.4 100.4 Pulse 91 Resp 18 B/P (MAP) 173/87 (115) Pulse Ox 99 99 97 O2 Delivery Tracheal Collar Trach Collar Tracheal Collar Tracheal Collar O2 Flow Rate 8.0 8.0 04/09/21 09:00 Pulse 83 Resp 24 B/P (MAP) 141/72 (95) Pulse Ox 99 O2 Delivery Tracheal Collar l Intake and Output 04/08/21 04/08/21 04/09/21 15:00 23:00 07:00 Intake Total 53 ml 860.8 ml Output Total 510 ml 475 ml 170 ml Balance -457 ml 385.8 ml -170 ml Justicifation of Admission Dx: Justifications for Admission: Justification of Admission Dx: N/A OMERO HEARN MD Apr 09, 2021 09:47
--- NOTE | 2021-04-09 10:39 | PDOC ---
DATE OF SERVICE DATE: 04/09/21 TIME: 10:34 SUBJECTIVE ROS Trach Collar, stable, No complaints OBJECTIVE Vital Signs Vital Signs Date Time Temp Pulse Resp B/P (MAP) Pulse Ox O2 Delivery O2 Flow Rate FiO2 04/09/21 10:01 100 Tracheal Collar 8.0 04/09/21 10:00 82 22 151/76 (101) 04/09/21 08:00 100.4 100.4 I & 0 Intake and Output 04/09/21 07:00 Intake Total 913.8 ml Output Total 1155 ml Balance -241.2 ml IV Total 913.8 ml Output Urine Total 705 ml Gastric Drainage Total 450 ml PHYSICAL EXAM Physical Exam GENERAL: nad HEENT: Anicteric. . Neck Trach+ LUNGS: decreased at bases HEART: S1, S2. No murmurs. ABDOMEN: Obese, soft. Bowel sounds present. GENITOURINARY: Kern in place. EXTREMITIES:No Edema CENTRAL NERVOUS SYSTEM: awake, alert DIAGNOSIS/ASSESSMENT Assessment & Plan BOB-ATN- was anuric , has been non Oliguric for past 11/2 -2 weeks , good response to IV NS bolus . No improvement in clearance - requiring dialysis., currently on MWF schedule, no indication for dialysis today Supportive care, I/O avoid nephrotoxins, Monitor for recovery .Access- temp HDC HypoNatremia - resolved stable HypoKalemia - K Normal, DM 2 - Glucosuria + POA COVID 19 Pneumonia - Unvaccinated , treated, Off isolation Acute Resp Failure- Now on Trach collar HTN antihypertensives Anemia -avoid DOYLE 2/2 to Thrombogenic state Family History of ESRD - Per at bedside- Pt's Mom was on dialysis and sister is on Dialysis COMMENT/RELEVANT DATA Meds Current Medications Medications (Trade) Dose Ordered Sig/Pepe Start Time Stop Time Status Last Admin Dose Admin Acetaminophen (Tylenol Supp) 650 mg PRN Q6HRS PRN 02/08/21 01:45 02/17/21 10:45 DC Acetaminophen (Tylenol) 500 mg 1X PRN PRN 03/17/21 13:30 03/18/21 13:29 DC Albumin Human 200 ml @ 200 mls/hr 1X PRN PRN 04/06/21 08:45 04/06/21 14:44 DC 04/06/21 10:43 200 MLS/HR Albuterol Sulfate (Ventolin Hfa) 60 puff STK-MED ONCE 03/17/21 11:29 03/17/21 11:29 DC Alteplase, Recombinant (Cathflo For Central Catheter Clearance) 1 mg 1X ONCE 02/27/21 14:30 02/27/21 14:36 DC 02/27/21 15:19 1 MG Alteplase, Recombinant (Cathflo) 2 mg 1X ONCE 02/27/21 11:00 02/27/21 11:01 DC 02/27/21 11:20 2 MG Amlodipine Besylate (Norvasc) 10 mg DAILY 03/31/21 09:00 04/09/21 07:20 10 MG Atorvastatin Calcium (Lipitor) 40 mg HS 02/08/21 21:00 04/08/21 21:47 40 MG Atropine Sulfate (ATROPINE 0.5mg SYRINGE) 0.5 mg PRN Q5MIN PRN 02/16/21 12:00 Azithromycin 250 mg/Sodium Chloride 250 ml @ 250 mls/hr Q24H 02/14/21 13:30 02/18/21 14:29 DC 02/18/21 11:51 250 MLS/HR Benzonatate (Tessalon Perle) 100 mg [id number] 02/10/21 23:30 02/17/21 10:45 DC 02/16/21 22:07 100 MG Bupivacaine HCl/ Epinephrine Bitart (Sensorcain-Epi 0.5% Kit) 30 ml STK-MED ONCE 03/27/21 10:05 03/27/21 10:05 DC 03/27/21 13:12 16 ML Bupivacaine HCl/ Epinephrine Bitart (Sensorcain-Epi 0.5%-1:499442 Mpf) 30 ml STK-MED ONCE 03/17/21 10:47 03/17/21 10:47 DC Carvedilol (Coreg) 6.25 mg BIDWMEALS 02/08/21 20:30 02/23/21 15:50 DC 02/23/21 08:06 6.25 MG Cefazolin Sodium/ Dextrose (Ancef 2gm Premix) 2 gm STK-MED ONCE 03/23/21 13:00 03/24/21 11:58 DC Ceftriaxone Sodium (Rocephin) 1 gm Q24H 02/14/21 13:00 02/23/21 07:34 DC 02/22/21 12:42 1 GM Cellulose (Surgicel Fibrillar 1x2) 1 each STK-MED ONCE 03/17/21 10:47 03/17/21 10:47 DC 03/17/21 11:56 1 EACH Daptomycin 480 mg/ Sodium Chloride 50 ml @ 100 mls/hr QMWF 03/23/21 16:00 03/26/21 10:29 DC 03/25/21 19:52 100 MLS/HR Daptomycin 500 mg/ Sodium Chloride 50 ml @ 100 mls/hr Q48H 04/02/21 10:00 04/08/21 13:14 100 MLS/HR Dexamethasone Sodium Phosphate (Decadron) 2 mg 1X ONCE 02/27/21 09:00 02/26/21 07:15 DC Dexmedetomidine HCl 400 mcg/ Sodium Chloride 100 ml @ 0 mls/hr CONT PRN 02/27/21 09:45 04/09/21 07:19 23.2 MLS/HR Dextrose (Dextrose 50%-Water Syringe) 12.5 gm PRN Q15MIN PRN 03/01/21 13:00 03/01/21 12:55 12.5 GM Diphenhydramine HCl (Benadryl) 25 mg 1X PRN PRN 03/17/21 13:30 03/18/21 13:29 DC Docusate Sodium (Colace Solution) 100 mg BID 02/23/21 12:00 04/09/21 07:20 100 MG Docusate Sodium (Colace) 100 mg PRN DAILY PRN 02/07/21 08:45 02/23/21 10:47 DC Enalaprilat (Vasotec Inj) 0.625 mg Q6HRS 02/08/21 16:15 02/09/21 16:01 DC 02/09/21 13:42 0.625 MG Enoxaparin Sodium (Lovenox 30mg Syringe) 30 mg Q24H 03/08/21 09:00 03/12/21 15:38 DC 03/12/21 09:04 30 MG Enoxaparin Sodium (Lovenox 40mg Syringe) 40 mg BID 02/09/21 09:00 03/08/21 13:56 DC 03/08/21 08:26 40 MG Enoxaparin Sodium (Lovenox Per Pharmacy Prophylaxis Dosing) 1 each PRN DAILY PRN 02/09/21 06:45 03/12/21 15:38 DC Ephedrine Sulfate (ePHEDrine PF IN SALINE SYRINGE) 50 mg STK-MED ONCE 03/17/21 10:56 03/17/21 10:56 DC Famotidine (Pepcid Vial) 20 mg DAILY 03/10/21 09:00 04/09/21 07:21 20 MG Fentanyl Citrate 30 ml @ 0 mls/hr CONT PRN PRN 04/08/21 07:15 04/09/21 00:54 2 MLS/HR Fentanyl Citrate (Fentanyl 2ml Vial) 100 mcg STK-MED ONCE 03/27/21 13:18 03/27/21 13:18 DC Fluconazole/ Sodium Chloride 100 ml @ 100 mls/hr Q24H 03/07/21 09:00 03/17/21 08:03 DC 03/16/21 08:29 100 MLS/HR Furosemide (Lasix) 40 mg 1X ONCE 03/29/21 15:00 03/29/21 15:02 DC 03/29/21 15:22 40 MG Glycerin/ Hypromellose/ Polyethylene (Artificial Tears) 1 drop PRN Q1HR PRN 02/17/21 10:00 04/05/21 08:02 1 DROP Glycopyrrolate (Robinul) 1 mg STK-MED ONCE 03/27/21 14:07 03/27/21 14:07 DC Guaifenesin (Robitussin Dm) 10 ml PRN Q6HRS PRN 02/10/21 23:30 02/16/21 09:06 10 ML Haloperidol Lactate (Haldol Inj) 5 mg Q8HRS 04/01/21 11:30 04/07/21 14:58 DC 04/07/21 05:51 5 MG Heparin Sodium (Porcine) (Heparin Sodium) 5,000 unit Q8HRS 03/13/21 06:00 04/09/21 06:43 5,000 UNIT Hydralazine HCl (Apresoline Inj) 10 mg PRN Q4HRS PRN 02/11/21 12:15 04/08/21 05:49 10 MG Hydromorphone HCl (Dilaudid) 0.5 mg PRN Q10MIN PRN 03/27/21 06:00 03/28/21 05:59 DC Info (PHARMACY MONITORING -- do not chart) 1 each PRN DAILY PRN 04/08/21 08:30 Insulin Glargine (Lantus Syringe) 5 unit BID 03/06/21 09:00 04/09/21 09:23 5 UNIT Insulin Human Lispro (HumaLOG) 12 units Q6HRS 02/20/21 12:00 02/28/21 15:38 DC 02/27/21 05:41 12 UNITS Insulin Human Regular 100 ml @ 10 mls/hr 1X ONCE 02/07/21 06:30 02/07/21 16:54 DC 02/07/21 09:31 6.5 MLS/HR Insulin Human Regular 100 unit/ Sodium Chloride 101 ml @ 0 mls/hr CONT PRN PRN 02/07/21 06:00 02/07/21 16:54 DC Labetalol HCl (Normodyne Iv Push) 10 mg PRN Q2HR PRN 02/08/21 00:45 04/08/21 05:11 10 MG Lactobacillus Rhamnosus (Culturelle) 1 cap BID 02/16/21 21:00 02/17/21 10:45 DC 02/16/21 22:02 1 CAP Lidocaine HCl (Buffered Lidocaine 1%) 3 ml STK-MED ONCE 03/07/21 13:25 03/07/21 13:25 DC Linezolid (Zyvox) 600 mg BID 03/05/21 09:00 03/12/21 07:00 DC 03/11/21 20:33 600 MG Linezolid/Dextrose 300 ml @ 300 mls/hr Q12HR 03/16/21 10:00 03/18/21 07:37 DC 03/17/21 21:44 300 MLS/HR Lisinopril (Prinivil) 20 mg DAILY 02/17/21 09:00 03/09/21 10:43 DC 02/27/21 09:10 20 MG Lorazepam (Ativan Inj) 0.5 mg PRN Q6HRS PRN 02/08/21 10:00 04/01/21 15:32 0.5 MG Magnesium Sulfate 50 ml @ 25 mls/hr PRN DAILY PRN 04/04/21 13:00 Meropenem 1 gm/ Sodium Chloride 100 ml @ 200 mls/hr Q24H 03/18/21 17:00 04/08/21 17:09 200 MLS/HR Methylprednisolone Sodium Succinate (SOLU-Medrol 125MG VIAL) 80 mg Q8HRS 02/25/21 09:00 02/26/21 07:09 DC 02/26/21 05:52 80 MG Metoclopramide HCl (Reglan Vial) 10 mg PRN Q6HRS PRN 02/08/21 00:45 02/12/21 15:51 10 MG Micafungin Sodium 100 mg/Dextrose 100 ml @ 100 mls/hr Q24H 03/21/21 18:00 03/25/21 10:27 DC 03/24/21 16:36 100 MLS/HR Midazolam HCl 100 ml @ 0 mls/hr CONT PRN 02/17/21 10:00 03/20/21 17:18 5 MLS/HR Morphine Sulfate (Morphine Sulfate) 1 mg PRN Q10MIN PRN 03/27/21 06:00 03/28/21 05:59 DC Multi-Ingred Cream/Lotion/Oil/ Oint (Artificial Tears Eye Ointment) 1 reji PRN Q1HR PRN 03/17/21 17:30 03/20/21 15:55 1 REJI Multivitamins/ Minerals Therapeutic (Centrum Multivit-Mineral Liq) 5 ml DAILY 03/14/21 09:00 04/09/21 07:21 5 ML Naloxone HCl (Narcan) 0.4 mg PRN Q2MIN PRN 03/27/21 14:30 Neostigmine [place] (Neostigmine Methylsulfate) 5 mg STK-MED ONCE 03/27/21 14:06 03/27/21 14:07 DC Norepinephrine Bitartrate 8 mg/ Dextrose 258 ml @ 21.711 mls/ hr CONT PRN 03/06/21 13:45 03/19/21 18:45 23.3 MLS/HR Nystatin (Nystop) 1 reji BID 03/02/21 21:00 04/09/21 09:20 1 REJI Ondansetron HCl (Zofran Odt) 4 mg 1X ONCE 02/06/21 23:30 02/06/21 23:31 DC 02/06/21 23:57 4 MG Ondansetron HCl (Zofran) 4 mg 1X ONCE 02/07/21 20:00 7/31/21 20:07 DC 02/07/21 20:06 4 MG Phenylephrine HCl (PHENYLEPHRINE in 0.9% NACL PF) 1 mg STK-MED ONCE 03/27/21 13:46 03/27/21 13:46 DC Piperacillin Sod/ Tazobactam Sod (Zosyn Per Pharmacy) 1 each PRN DAILY PRN 02/23/21 07:45 03/17/21 10:04 DC Piperacillin Sod/ Tazobactam Sod 2.25 gm/Sodium Chloride 50 ml @ 100 mls/hr Q8HRS 03/07/21 14:00 03/17/21 08:03 DC 03/17/21 05:58 100 MLS/HR Piperacillin Sod/ Tazobactam Sod 3.375 gm/Sodium Chloride 50 ml @ 100 mls/hr Q6HRS 03/14/21 18:00 Cancel Piperacillin Sod/ Tazobactam Sod 4.5 gm/Sodium Chloride 100 ml @ 200 mls/hr Q6HRS 02/23/21 08:00 03/07/21 08:18 DC 03/07/21 06:12 200 MLS/HR Potassium Chloride/Water 100 ml @ 100 mls/hr Q1H 04/04/21 14:00 04/04/21 15:59 DC 04/04/21 15:12 100 MLS/HR Potassium Chloride (Klor-Con) 40 meq 1X ONCE 02/13/21 12:00 02/13/21 12:01 DC 02/13/21 13:21 40 MEQ Prochlorperazine Edisylate (Compazine) 5 mg PACU PRN PRN 03/27/21 06:00 03/28/21 05:59 DC Propofol (Diprivan) 200 mg STK-MED ONCE 03/27/21 12:02 03/27/21 12:03 DC Remdesivir 100 mg/ Sodium Chloride 230 ml @ 460 mls/hr Q24H 02/15/21 12:00 02/18/21 12:29 DC 02/18/21 11:52 460 MLS/HR Remdesivir 200 mg/ Sodium Chloride 210 ml @ 210 mls/hr 1X ONCE 02/11/21 13:00 02/12/21 11:55 DC 02/11/21 14:33 210 MLS/HR Ringer's Solution 1,000 ml @ 30 mls/hr Q24H 03/27/21 06:00 03/27/21 17:59 DC Rocuronium [place] (Zemuron) 50 mg STK-MED ONCE 03/27/21 13:16 03/27/21 13:17 DC Sennosides (Senna) 17.2 mg PRN BID PRN 02/07/21 08:45 02/22/21 08:29 17.2 MG Sevoflurane (Ultane) 60 ml STK-MED ONCE 03/27/21 14:19 03/27/21 14:20 DC Sodium Chloride 500 ml @ 500 mls/hr 1X ONCE 04/08/21 16:45 04/08/21 17:44 DC 04/08/21 17:10 500 MLS/HR Sodium Chloride (Normal Saline Flush) 3 ml QSHIFT PRN 03/27/21 14:30 Succinylcholine Chloride (Anectine) 200 mg STK-MED ONCE 02/17/21 10:00 02/25/21 08:40 DC Vancomycin HCl (Vanco Per Pharmacy) 1 each PRN DAILY PRN 03/04/21 18:30 03/05/21 08:59 DC 03/04/21 19:47 1 EACH Vancomycin HCl (Vancomycin Trough Level) 1 each 1X ONCE 03/06/21 07:00 03/06/21 07:01 Cancel Vancomycin HCl 1.5 gm/Sodium Chloride 500 ml @ 250 mls/hr Q12H 03/05/21 07:30 03/05/21 08:58 DC Vancomycin HCl 1 gm/Sodium Chloride 250 ml @ 250 mls/hr Q12H 03/04/21 20:00 UNV Vancomycin HCl 2 gm/Sodium Chloride 500 ml @ 250 mls/hr 1X ONCE 03/04/21 19:00 03/04/21 20:59 DC 03/04/21 19:26 250 MLS/HR Vecuronium [place] (Norcuron Bolus) 6 mg PRN Q2HRS PRN 03/06/21 14:30 03/16/21 10:16 5 MG Vitamin A/Vitamin D (Vitamin A & D Ointment) 1 reji PRN Q1HR PRN 03/10/21 01:45 03/20/21 09:34 1 REJI Lab Laboratory Tests Test 04/08/21 11:50 04/08/21 18:37 04/08/21 23:57 04/09/21 06:25 Glucose (Fingerstick) 196 mg/dL (70-99) 241 mg/dL (70-99) 184 mg/dL (70-99) White Blood Count 13.9 x10^3/uL (4.0-11.0) Red Blood Count 3.23 x10^6/uL (3.50-5.40) Hemoglobin 9.5 g/dL (12.0-15.5) Hematocrit 28.3 % (36.0-47.0) Mean Corpuscular Volume 88 fL (79-100) Mean Corpuscular Hemoglobin 29 pg (25-35) Mean Corpuscular Hemoglobin Concent 34 g/dL (31-37) Red Cell Distribution Width 14.4 % (11.5-14.5) Platelet Count 307 x10^3/uL (140-400) Neutrophils (%) (Auto) 77 % (31-73) Lymphocytes (%) (Auto) 13 % (24-48) Monocytes (%) (Auto) 10 % (0-9) Eosinophils (%) (Auto) 0 % (0-3) Basophils (%) (Auto) 0 % (0-3) Neutrophils # (Auto) 10.7 x10^3/uL (1.8-7.7) Lymphocytes # (Auto) 1.8 x10^3/uL (1.0-4.8) Monocytes # (Auto) 1.3 x10^3/uL (0.0-1.1) Eosinophils # (Auto) 0.0 x10^3/uL (0.0-0.7) Basophils # (Auto) 0.0 x10^3/uL (0.0-0.2) Sodium Level 137 mmol/L (136-145) Potassium Level 3.6 mmol/L (3.5-5.1) Chloride Level 97 mmol/L (98-107) Carbon Dioxide Level 25 mmol/L (21-32) Anion Gap 15 (6-14) Blood Urea Nitrogen 39 mg/dL (7-20) Creatinine 3.0 mg/dL (0.6-1.0) Estimated GFR (Cockcroft-Gault) 16.9 BUN/Creatinine Ratio 13 (6-20) Glucose Level 252 mg/dL (70-99) Calcium Level 9.8 mg/dL (8.5-10.1) Total Bilirubin 0.7 mg/dL (0.2-1.0) Aspartate Amino Transf (AST/SGOT) 16 U/L (15-37) Alanine Aminotransferase (ALT/SGPT) 10 U/L (14-59) Alkaline Phosphatase 185 U/L (46-116) Total Protein 9.1 g/dL (6.4-8.2) Albumin 3.8 g/dL (3.4-5.0) Albumin/Globulin Ratio 0.7 (1.0-1.7) Test 04/09/21 06:46 04/09/21 07:42 Glucose (Fingerstick) 259 mg/dL (70-99) O2 Saturation 98 % (92-99) Arterial Blood pH 7.54 (7.35-7.45) Arterial Blood pCO2 at Patient Temp 25 mmHg (35-46) Arterial Blood pO2 at Patient Temp 162 mmHg (75-108) Arterial Blood HCO3 21 mmol/L (21-28) Arterial Blood Base Excess -1 mmol/L (-3-3) FiO2 40% vent Results All relevant outside records, renal labs, imaging studies, telemetry/EKG's were reviewed. Justicifation of Admission Dx: Justifications for Admission: Justification of Admission Dx: N/A GIGI CARMEN MD Apr 09, 2021 10:39
--- NOTE | 2021-04-09 10:52 | PDOC ---
Infectious Disease Note Subjective: Subjective Pt intubated Temp around 100.4 F No further episodes of nausea and vomiting reported per RN Vital Signs: Vital Signs Vital Signs Date Time Temp Pulse Resp B/P (MAP) Pulse Ox O2 Delivery O2 Flow Rate FiO2 04/09/21 10:01 100 Tracheal Collar 8.0 04/09/21 10:00 82 22 151/76 (101) 04/09/21 08:00 100.4 100.4 Physical Exam: PHYSICAL EXAM GENERAL: Intubated HEENT: Normocephalic, atraumatic. Anicteric. Slight bilateral periorbital edema. Latter improving Neck right IJ HDC clean Trach + LUNGS: Rhonchi. HEART: S1, S2. No murmurs. ABDOMEN: Obese, soft. Bowel sounds present. Nontender, nondistended. PEG tube in place GENITOURINARY: Kern and fecal tube in place. EXTREMITIES: Edema present no cyanosis. CENTRAL NERVOUS SYSTEM: Intubated. PSYCHIATRIC: Unable to assess. Derm has pressure wounds wound pictures noted in chart. Generalized rash, Right PICC line February 14 removed; left PICC line 04/07/2021 Right IJ HDC clean March 07 Medications: Inpatient Meds: Medications reviewed. Labs: Lab Laboratory Tests Test 04/08/21 11:50 04/08/21 18:37 04/08/21 23:57 04/09/21 06:25 Glucose (Fingerstick) 196 mg/dL (70-99) 241 mg/dL (70-99) 184 mg/dL (70-99) White Blood Count 13.9 x10^3/uL (4.0-11.0) Red Blood Count 3.23 x10^6/uL (3.50-5.40) Hemoglobin 9.5 g/dL (12.0-15.5) Hematocrit 28.3 % (36.0-47.0) Mean Corpuscular Volume 88 fL (79-100) Mean Corpuscular Hemoglobin 29 pg (25-35) Mean Corpuscular Hemoglobin Concent 34 g/dL (31-37) Red Cell Distribution Width 14.4 % (11.5-14.5) Platelet Count 307 x10^3/uL (140-400) Neutrophils (%) (Auto) 77 % (31-73) Lymphocytes (%) (Auto) 13 % (24-48) Monocytes (%) (Auto) 10 % (0-9) Eosinophils (%) (Auto) 0 % (0-3) Basophils (%) (Auto) 0 % (0-3) Neutrophils # (Auto) 10.7 x10^3/uL (1.8-7.7) Lymphocytes # (Auto) 1.8 x10^3/uL (1.0-4.8) Monocytes # (Auto) 1.3 x10^3/uL (0.0-1.1) Eosinophils # (Auto) 0.0 x10^3/uL (0.0-0.7) Basophils # (Auto) 0.0 x10^3/uL (0.0-0.2) Sodium Level 137 mmol/L (136-145) Potassium Level 3.6 mmol/L (3.5-5.1) Chloride Level 97 mmol/L (98-107) Carbon Dioxide Level 25 mmol/L (21-32) Anion Gap 15 (6-14) Blood Urea Nitrogen 39 mg/dL (7-20) Creatinine 3.0 mg/dL (0.6-1.0) Estimated GFR (Cockcroft-Gault) 16.9 BUN/Creatinine Ratio 13 (6-20) Glucose Level 252 mg/dL (70-99) Calcium Level 9.8 mg/dL (8.5-10.1) Total Bilirubin 0.7 mg/dL (0.2-1.0) Aspartate Amino Transf (AST/SGOT) 16 U/L (15-37) Alanine Aminotransferase (ALT/SGPT) 10 U/L (14-59) Alkaline Phosphatase 185 U/L (46-116) Total Protein 9.1 g/dL (6.4-8.2) Albumin 3.8 g/dL (3.4-5.0) Albumin/Globulin Ratio 0.7 (1.0-1.7) Test 04/09/21 06:46 04/09/21 07:42 Glucose (Fingerstick) 259 mg/dL (70-99) O2 Saturation 98 % (92-99) Arterial Blood pH 7.54 (7.35-7.45) Arterial Blood pCO2 at Patient Temp 25 mmHg (35-46) Arterial Blood pO2 at Patient Temp 162 mmHg (75-108) Arterial Blood HCO3 21 mmol/L (21-28) Arterial Blood Base Excess -1 mmol/L (-3-3) FiO2 40% vent Micro GRAM STAIN EVALUATION Final Final This specimen is of good quality and is acceptable for routine bacterial culture. Culture results to follow. NO ORGANISMS SEEN. SQUAMOUS EPI CELL:RARE PMN (WBCs):MODERATE Unless otherwise specified, Testing Performed by: [address] [id number] For Inquires, the Physician may contact the Microbiology department at [phone] RESPIRATORY CULTURE Final Final MODERATE GRAM NEGATIVE RODS on 03/18/21 at 1120 FINAL ID= [[email or web address] [email or web address].] ACINETOBACTER URSINGII. ANTIMICROBIAL SUSCEPTIBILITY Final Comment NEG SAGE 56 ACINETOBACTER URSINGII. ANTIBIOTIC RESULT INTERPRETATION AMPICILLIN/SULBACTAM <=4/2 S AMIKACIN <=16 S CEFTRIAXONE 2 S CEFTAZIDIME 16 I CEFOTAXIME 16 I CIPROFLOXACIN <=0.25 S CEFEPIME 4 S GENTAMICIN <=2 S LEVOFLOXACIN <=0.5 S RUN DATE: 03/19/21 [facility] *LIVE* PAGE 2 RUN TIME: 1120 Specimen Inquiry SPEC: [id number] PATIENT: ARIADNA BANKS [id number] (Continued) Procedure Result CONTINUED ON NEXT PAGE RUN DATE: 03/19/21 [facility] *LIVE* PAGE 3 RUN TIME: 1120 Specimen Inquiry SPEC: [id number] PATIENT: ARIADNA BANKS [id number] (Continued) Procedure Result ANTIMICROBIAL SUSCEPTIBILITY Final (continued) MINOCYCLINE <=4 S MEROPENEM <=1 S TRIMETHOPRIM/SULFAMETHOXAZOLE <=0.5/9.5 S TOBRAMYCIN <=2 S Unless otherwise specified, Testing Performed by: [address] [id number] For Inquires, the Physician may contact the Microbiology department at [phone] Culture negative Objective: Assessment: 1. Febrile illness. 2. COVID-19 infection present on date of admission, 02/06/2021. Status post remdesivir, dexamethasone. 3. Acute hypoxic respiratory failure, status post intubation. S/P Trach on 03/17 Trach cultures positive for Rock albicans and now acinebacter ursungi 4. Diabetes. 5. Diarrhea. 6. Hypertension. 7. Hyperlipidemia. 8. Anemia. 9. BOB on HD 10.UC rock albican, ua neg 11. Nausea and vomiting Possible aspiration Plan: Plan of Care Start Zyvox Cont Meropenem DC daptomycin Status post PICC line exchange Maintain aspiration precautions Monitor lab and cultures C. diff PCR negative Follow Kern maintenance protocol repairer maintenance building Wound care per wound treatment Offload Continue supportive care. Prognosis poor D/W KAITLYNN CURIEL MD Apr 09, 2021 10:52
--- NOTE | 2021-04-09 11:34 | PDOC ---
PULMONARY PROGRESS NOTES DATE: 04/09/21 TIME: 11:33 Subjective Patient is tolerating trach shield well. She is using her speaking valve. Vitals Vital Signs Date Time Temp Pulse Resp B/P (MAP) Pulse Ox O2 Delivery O2 Flow Rate FiO2 04/09/21 11:31 100 Tracheal Collar 8.0 04/09/21 11:00 97 24 195/104 (134) 04/09/21 08:00 100.4 100.4 Lungs: Clear Cardiovascular: S1 Abdomen: Soft, Non-tender Skin: Warm Labs Laboratory Tests Test 04/07/21 11:51 04/07/21 17:57 04/07/21 23:35 04/08/21 04:45 Glucose (Fingerstick) 229 mg/dL (70-99) 156 mg/dL (70-99) 193 mg/dL (70-99) White Blood Count 13.9 x10^3/uL (4.0-11.0) Red Blood Count 3.34 x10^6/uL (3.50-5.40) Hemoglobin 10.0 g/dL (12.0-15.5) Hematocrit 28.8 % (36.0-47.0) Mean Corpuscular Volume 86 fL (79-100) Mean Corpuscular Hemoglobin 30 pg (25-35) Mean Corpuscular Hemoglobin Concent 35 g/dL (31-37) Red Cell Distribution Width 14.4 % (11.5-14.5) Platelet Count 375 x10^3/uL (140-400) Neutrophils (%) (Auto) 67 % (31-73) Lymphocytes (%) (Auto) 19 % (24-48) Monocytes (%) (Auto) 8 % (0-9) Eosinophils (%) (Auto) 3 % (0-3) Basophils (%) (Auto) 3 % (0-3) Neutrophils # (Auto) 9.3 x10^3/uL (1.8-7.7) Lymphocytes # (Auto) 2.6 x10^3/uL (1.0-4.8) Monocytes # (Auto) 1.1 x10^3/uL (0.0-1.1) Eosinophils # (Auto) 0.4 x10^3/uL (0.0-0.7) Basophils # (Auto) 0.4 x10^3/uL (0.0-0.2) Sodium Level 139 mmol/L (136-145) Potassium Level 3.4 mmol/L (3.5-5.1) Chloride Level 100 mmol/L (98-107) Carbon Dioxide Level 24 mmol/L (21-32) Anion Gap 15 (6-14) Blood Urea Nitrogen 41 mg/dL (7-20) Creatinine 3.7 mg/dL (0.6-1.0) Estimated GFR (Cockcroft-Gault) 13.2 Glucose Level 230 mg/dL (70-99) Calcium Level 10.0 mg/dL (8.5-10.1) Magnesium Level 2.2 mg/dL (1.8-2.4) Triglycerides Level 703 mg/dL (0-150) Test 04/08/21 11:50 04/08/21 18:37 04/08/21 23:57 04/09/21 06:25 Glucose (Fingerstick) 196 mg/dL (70-99) 241 mg/dL (70-99) 184 mg/dL (70-99) White Blood Count 13.9 x10^3/uL (4.0-11.0) Red Blood Count 3.23 x10^6/uL (3.50-5.40) Hemoglobin 9.5 g/dL (12.0-15.5) Hematocrit 28.3 % (36.0-47.0) Mean Corpuscular Volume 88 fL (79-100) Mean Corpuscular Hemoglobin 29 pg (25-35) Mean Corpuscular Hemoglobin Concent 34 g/dL (31-37) Red Cell Distribution Width 14.4 % (11.5-14.5) Platelet Count 307 x10^3/uL (140-400) Neutrophils (%) (Auto) 77 % (31-73) Lymphocytes (%) (Auto) 13 % (24-48) Monocytes (%) (Auto) 10 % (0-9) Eosinophils (%) (Auto) 0 % (0-3) Basophils (%) (Auto) 0 % (0-3) Neutrophils # (Auto) 10.7 x10^3/uL (1.8-7.7) Lymphocytes # (Auto) 1.8 x10^3/uL (1.0-4.8) Monocytes # (Auto) 1.3 x10^3/uL (0.0-1.1) Eosinophils # (Auto) 0.0 x10^3/uL (0.0-0.7) Basophils # (Auto) 0.0 x10^3/uL (0.0-0.2) Sodium Level 137 mmol/L (136-145) Potassium Level 3.6 mmol/L (3.5-5.1) Chloride Level 97 mmol/L (98-107) Carbon Dioxide Level 25 mmol/L (21-32) Anion Gap 15 (6-14) Blood Urea Nitrogen 39 mg/dL (7-20) Creatinine 3.0 mg/dL (0.6-1.0) Estimated GFR (Cockcroft-Gault) 16.9 BUN/Creatinine Ratio 13 (6-20) Glucose Level 252 mg/dL (70-99) Calcium Level 9.8 mg/dL (8.5-10.1) Total Bilirubin 0.7 mg/dL (0.2-1.0) Aspartate Amino Transf (AST/SGOT) 16 U/L (15-37) Alanine Aminotransferase (ALT/SGPT) 10 U/L (14-59) Alkaline Phosphatase 185 U/L (46-116) Total Protein 9.1 g/dL (6.4-8.2) Albumin 3.8 g/dL (3.4-5.0) Albumin/Globulin Ratio 0.7 (1.0-1.7) Test 04/09/21 06:46 04/09/21 07:42 Glucose (Fingerstick) 259 mg/dL (70-99) O2 Saturation 98 % (92-99) Arterial Blood pH 7.54 (7.35-7.45) Arterial Blood pCO2 at Patient Temp 25 mmHg (35-46) Arterial Blood pO2 at Patient Temp 162 mmHg (75-108) Arterial Blood HCO3 21 mmol/L (21-28) Arterial Blood Base Excess -1 mmol/L (-3-3) FiO2 40% vent Laboratory Tests Test 04/08/21 11:50 04/08/21 18:37 04/08/21 23:57 04/09/21 06:25 Glucose (Fingerstick) 196 mg/dL (70-99) 241 mg/dL (70-99) 184 mg/dL (70-99) White Blood Count 13.9 x10^3/uL (4.0-11.0) Red Blood Count 3.23 x10^6/uL (3.50-5.40) Hemoglobin 9.5 g/dL (12.0-15.5) Hematocrit 28.3 % (36.0-47.0) Mean Corpuscular Volume 88 fL (79-100) Mean Corpuscular Hemoglobin 29 pg (25-35) Mean Corpuscular Hemoglobin Concent 34 g/dL (31-37) Red Cell Distribution Width 14.4 % (11.5-14.5) Platelet Count 307 x10^3/uL (140-400) Neutrophils (%) (Auto) 77 % (31-73) Lymphocytes (%) (Auto) 13 % (24-48) Monocytes (%) (Auto) 10 % (0-9) Eosinophils (%) (Auto) 0 % (0-3) Basophils (%) (Auto) 0 % (0-3) Neutrophils # (Auto) 10.7 x10^3/uL (1.8-7.7) Lymphocytes # (Auto) 1.8 x10^3/uL (1.0-4.8) Monocytes # (Auto) 1.3 x10^3/uL (0.0-1.1) Eosinophils # (Auto) 0.0 x10^3/uL (0.0-0.7) Basophils # (Auto) 0.0 x10^3/uL (0.0-0.2) Sodium Level 137 mmol/L (136-145) Potassium Level 3.6 mmol/L (3.5-5.1) Chloride Level 97 mmol/L (98-107) Carbon Dioxide Level 25 mmol/L (21-32) Anion Gap 15 (6-14) Blood Urea Nitrogen 39 mg/dL (7-20) Creatinine 3.0 mg/dL (0.6-1.0) Estimated GFR (Cockcroft-Gault) 16.9 BUN/Creatinine Ratio 13 (6-20) Glucose Level 252 mg/dL (70-99) Calcium Level 9.8 mg/dL (8.5-10.1) Total Bilirubin 0.7 mg/dL (0.2-1.0) Aspartate Amino Transf (AST/SGOT) 16 U/L (15-37) Alanine Aminotransferase (ALT/SGPT) 10 U/L (14-59) Alkaline Phosphatase 185 U/L (46-116) Total Protein 9.1 g/dL (6.4-8.2) Albumin 3.8 g/dL (3.4-5.0) Albumin/Globulin Ratio 0.7 (1.0-1.7) Test 04/09/21 06:46 04/09/21 07:42 Glucose (Fingerstick) 259 mg/dL (70-99) O2 Saturation 98 % (92-99) Arterial Blood pH 7.54 (7.35-7.45) Arterial Blood pCO2 at Patient Temp 25 mmHg (35-46) Arterial Blood pO2 at Patient Temp 162 mmHg (75-108) Arterial Blood HCO3 21 mmol/L (21-28) Arterial Blood Base Excess -1 mmol/L (-3-3) FiO2 40% vent Medications Active Scripts Medications Dose Route/Sig Max Daily Dose Days Date Category Novolog Flexpen (Insulin Aspart) 100 Unit/1 Ml Insuln.pen 3-7 SQ TIDACHC 02/07/21 Reported Lisinopril 5 Mg Tablet 1 Tab PO DAILY 02/07/21 Reported Lantus Solostar (Insulin Glargine,Hum.rec.anlog) 100 Unit/1 Ml Insuln.pen 5 Unit SQ QHS 04/09/15 Reported Atorvastatin Calcium 40 Mg Tablet 40 Mg PO HS 04/09/15 Reported Impression . IMPRESSION: 1. Acute hypoxic respiratory failure secondary to COVID-19 viral pneumonia/acute lung injury and early acute respiratory distress syndrome. S/P intubation 02/17/21. Status post tracheostomy. 2. Nonsmoker. 3. Abnormal chest x-ray consistent with COVID-19 viral pneumonia. 4. Diabetic ketoacidosis--resolved 5. Underlying obesity contributing to hypoxia as well. 6. BOB . hemodialysis started 03/07 7. Fever, 30 ID 8. Abnormal chest x-ray with diffuse interstitial infiltrates compatible with viral pneumonia 9. [place] in the sputum is a contamination 10. Septic shoc 11. s/p lap G-tube 03/27 12. Delirium Plan . Updated 04/09 We will do daily trach shield trials as tolerated. Tolerating it well so far. We will continue with speaking valve. She currently has size 7 trach. Once she is able to tolerate for 48 hours on trach shield,. We will try capping trach. Per discussion with general surgery, no plan to further downsize trach. If she does well in next week, decannulate No further emesis. No evidence of ileus. Antibiotics per ID Follow cultures Continue hemodialysis. Follow renal recommendations. DVT GI prophylaxis Nutritional support Updated 04/08 We will do daily trach shield trials as tolerated. We will do ABGs if there is paradoxical breathing during the trial. Patient had periods of emesis today. Will obtain KUB to rule out any ileus. Antibiotics per ID Follow cultures Continue hemodialysis. Follow renal recommendations. DVT GI prophylaxis Nutritional support Updated 04/07 Patient tolerated pressure support for 11 hours yesterday. We will initiate trach shield trial today. Antibiotics per ID Follow cultures Continue hemodialysis. Follow renal recommendations. DVT GI prophylaxis Nutritional support Updated 04/06 Antibiotics per ID Follow cultures Continue current vent settings Pressure support as tolerated once hemodialysis has been completed DVT GI prophylaxis Nutritional support Updated 04/05 cont vent support setting reviewed decrease sedation weaning as tolerated need high ps during weaning hd per nephro M-W-F Antibiotics per ID, actinobacter in sputum. elevate hob hep sq pepcid for prophylaxis discussed w rn Updated 04/04 cont vent support setting reviewed decrease sedation weaning as tolerated hd per nephro Antibiotics per ID, actinobacter in sputum. Cultures so far negative elevate hob hep sq pepcid for prophylaxis discussed w rn Updated 04/03 Patient currently undergoing hemodialysis, on assist control ventilation We have been unable to sedate patient and perform spontaneous breathing trials throughout the day with pressure support Antibiotics per ID, actinobacter in sputum. Cultures so far negative We will continue current support Hemodialysis per nephrology EMILY POSADA MD Apr 09, 2021 11:34
--- NOTE | 2021-04-09 16:22 | NUR ---
SS following up with discharge planning. SS reviewed pt chart and discussed with pt RN. Pt is currently on trach shield at 35%. COVID19 recovered. G tube in place. PT/OT evaluated today and recommended acute rehabilitation. Pt on IV Meropenem and IV Zyvox. Self pay. Med Assist following. SS will continue to follow for discharge planning.
[2021-04-09] MEDS: MEROPENEM 1 GM in IV NORMAL SALINE 100ML 100 ML IV SCH (17:00)
--- NOTE | 2021-04-09 17:40 | NUR ---
Wound/Ostomy Care Wound Type/Assessment: Wound care follow up for buttocks PU unstageable, wound remains mostly eschar covered, with some yellow slough. Wound cleansed, measured and redressed. Left buttock PU has now resolved. Pt is more alert and able to help with some turning today upon assessment. No other wound noted. Treatment Recommendations/Plan: Cleanse wound and pat dry Buttocks: Apply honey alginate, cover with foam or abd and tape. Change dressing every 2-3 days. Education provided: Pt is alert but appears to be confused, unable to educate at this time Offloading surface/device: ICU bed, wedge and pillows for repositioning, will need P500 if transfers out of ICU Recommended Referrals/Tests: N/A Discharge Recommendations for dressings: same as recommended on treatment plan.
[2021-04-09] MEDS: ATORVASTATIN CALCIUM 40 MG TABLET. PO SCH (21:47)
[2021-04-10] VITALS (27 sets, daily range): BP systolic 67–200; BP diastolic 44–124
[2021-04-10] MEDS: INSULIN LISPRO 300 UNITS/3 ML VIAL. SQ SCH ×3 (00:10→12:00)
[2021-04-10] MEDS: DEXMEDETOMIDINE 400 MCG in IV NORMAL SALINE 100ML 96 ML IV PRN ×8 (02:02→20:18)
[2021-04-10] MEDS: HEPARIN for SUB-Q USE 5,000 UNIT/ML VIAL. SQ SCH ×3 (05:40→22:37)
[2021-04-10] MEDS: hydrALAZINE 20 MG/ML VIAL. IVP PRN (05:55)
[2021-04-10 06:36] LABS: CREATININE 3.3 mg/dL (0.6-1.0); GFR 15.1; POTASSIUM 3.5 mmol/L (3.5-5.1)
[2021-04-10] MEDS: FAMOTIDINE 20 MG/2 ML VIAL IVP SCH (07:58)
[2021-04-10] MEDS: DOCUSATE 100 MG/10 ML SOLUTION. PO SCH ×3 (07:58→20:51)
[2021-04-10] MEDS: MULTIVITAMINS,THERAPEUTIC 5 ML ORAL LIQUID. PEG SCH ×2 (07:58→09:00)
[2021-04-10] MEDS: NYSTATIN TOPICAL POWDER 15GM BOTTLE. TP SCH ×2 (07:59→20:50)
--- NOTE | 2021-04-10 09:18 | PDOC ---
DATE OF SERVICE DATE: 04/10/21 TIME: 09:09 SUBJECTIVE ROS On Trach Collar, resting comfortably OBJECTIVE Vital Signs Vital Signs Date Time Temp Pulse Resp B/P (MAP) Pulse Ox O2 Delivery O2 Flow Rate FiO2 04/10/21 09:00 95 Tracheal Collar 8.0 04/10/21 07:59 102 139/74 04/10/21 06:00 29 04/10/21 05:00 99.4 99.4 I & 0 Intake and Output 04/10/21 07:00 Intake Total 673.5 ml Output Total 1382 ml Balance -708.5 ml IV Total 673.5 ml Output Urine Total 1082 ml Gastric Drainage Total 300 ml PHYSICAL EXAM Physical Exam GENERAL: On vent HEENT: Anicteric. . Neck Trach+ LUNGS: decreased at bases HEART: S1, S2. No murmurs. ABDOMEN: Obese, soft. Bowel sounds present. GENITOURINARY: Kern and rectal tube in place. EXTREMITIES: Edema present no cyanosis. CENTRAL NERVOUS SYSTEM: awake, on vent PSYCHIATRIC: Unable to assess. DERM has pressure wounds DIAGNOSIS/ASSESSMENT Assessment & Plan BOB-ATN- was anuric initially , non Oliguric for past 2 weeks No improvement in clearance - requiring dialysis., currently on MWF schedule, Dialysis today , UF 2 discussed treatment plan with Rene Supportive care, I/O avoid nephrotoxins, Monitor for recovery Access- temp HDC HypoNatremia - resolved stable HypoKalemia - K low Normal, Change from Nepro to Normal K Tube feed DM 2 - Glucosuria + POA COVID 19 Pneumonia - Unvaccinated , treated, Off isolation Acute Resp Failure- Intubated ; CxR 04/01 Moderate diffuse pulmonary opacities, slightly decreased compared to prior. HTN antihypertensives Anemia -avoid DOYLE 2/2 to Thrombogenic state Family History of ESRD - Per at bedside- Pt's Mom was on dialysis and sister is on Dialysis COMMENT/RELEVANT DATA Meds Current Medications Medications (Trade) Dose Ordered Sig/Pepe Start Time Stop Time Status Last Admin Dose Admin Acetaminophen (Tylenol Supp) 650 mg PRN Q6HRS PRN 02/08/21 01:45 02/17/21 10:45 DC Acetaminophen (Tylenol) 500 mg 1X PRN PRN 03/17/21 13:30 03/18/21 13:29 DC Albumin Human 200 ml @ 200 mls/hr 1X PRN PRN 04/06/21 08:45 04/06/21 14:44 DC 04/06/21 10:43 200 MLS/HR Albuterol Sulfate (Ventolin Hfa) 60 puff STK-MED ONCE 03/17/21 11:29 03/17/21 11:29 DC Alteplase, Recombinant (Cathflo For Central Catheter Clearance) 1 mg 1X ONCE 02/27/21 14:30 02/27/21 14:36 DC 02/27/21 15:19 1 MG Alteplase, Recombinant (Cathflo) 2 mg 1X ONCE 02/27/21 11:00 02/27/21 11:01 DC 02/27/21 11:20 2 MG Amlodipine Besylate (Norvasc) 10 mg DAILY 03/31/21 09:00 04/10/21 07:59 10 MG Atorvastatin Calcium (Lipitor) 40 mg HS 02/08/21 21:00 04/09/21 21:47 40 MG Atropine Sulfate (ATROPINE 0.5mg SYRINGE) 0.5 mg PRN Q5MIN PRN 02/16/21 12:00 Azithromycin 250 mg/Sodium Chloride 250 ml @ 250 mls/hr Q24H 02/14/21 13:30 02/18/21 14:29 DC 02/18/21 11:51 250 MLS/HR Benzonatate (Tessalon Perle) 100 mg [id number] 02/10/21 23:30 02/17/21 10:45 DC 02/16/21 22:07 100 MG Bupivacaine HCl/ Epinephrine Bitart (Sensorcain-Epi 0.5% Kit) 30 ml STK-MED ONCE 03/27/21 10:05 03/27/21 10:05 DC 03/27/21 13:12 16 ML Bupivacaine HCl/ Epinephrine Bitart (Sensorcain-Epi 0.5%-1:[id number] Mpf) 30 ml STK-MED ONCE 03/17/21 10:47 03/17/21 10:47 DC Carvedilol (Coreg) 6.25 mg [id number] 02/08/21 20:30 02/23/21 15:50 DC 02/23/21 08:06 6.25 MG Cefazolin Sodium/ Dextrose (Ancef 2gm Premix) 2 gm STK-MED ONCE 03/23/21 13:00 03/24/21 11:58 DC Ceftriaxone Sodium (Rocephin) 1 gm Q24H 02/14/21 13:00 02/23/21 07:34 DC 02/22/21 12:42 1 GM Cellulose (Surgicel Fibrillar 1x2) 1 each STK-MED ONCE 03/17/21 10:47 03/17/21 10:47 DC 03/17/21 11:56 1 EACH Daptomycin 480 mg/ Sodium Chloride 50 ml @ 100 mls/hr QMWF 03/23/21 16:00 03/26/21 10:29 DC 03/25/21 19:52 100 MLS/HR Daptomycin 500 mg/ Sodium Chloride 50 ml @ 100 mls/hr Q48H 04/02/21 10:00 04/09/21 10:52 DC 04/08/21 13:14 100 MLS/HR Dexamethasone Sodium Phosphate (Decadron) 2 mg 1X ONCE 02/27/21 09:00 02/26/21 07:15 DC Dexmedetomidine HCl 400 mcg/ Sodium Chloride 100 ml @ 0 mls/hr CONT PRN 02/27/21 09:45 04/10/21 09:05 34.8 MLS/HR Dextrose (Dextrose 50%-Water Syringe) 12.5 gm PRN Q15MIN PRN 03/01/21 13:00 03/01/21 12:55 12.5 GM Diphenhydramine HCl (Benadryl) 25 mg 1X PRN PRN 03/17/21 13:30 03/18/21 13:29 DC Docusate Sodium (Colace Solution) 100 mg BID 02/23/21 12:00 04/10/21 07:58 100 MG Docusate Sodium (Colace) 100 mg PRN DAILY PRN 02/07/21 08:45 02/23/21 10:47 DC Enalaprilat (Vasotec Inj) 0.625 mg Q6HRS 02/08/21 16:15 02/09/21 16:01 DC 02/09/21 13:42 0.625 MG Enoxaparin Sodium (Lovenox 30mg Syringe) 30 mg Q24H 03/08/21 09:00 03/12/21 15:38 DC 03/12/21 09:04 30 MG Enoxaparin Sodium (Lovenox 40mg Syringe) 40 mg BID 02/09/21 09:00 03/08/21 13:56 DC 03/08/21 08:26 40 MG Enoxaparin Sodium (Lovenox Per Pharmacy Prophylaxis Dosing) 1 each PRN DAILY PRN 02/09/21 06:45 03/12/21 15:38 DC Ephedrine Sulfate (ePHEDrine PF IN SALINE SYRINGE) 50 mg STK-MED ONCE 03/17/21 10:56 03/17/21 10:56 DC Famotidine (Pepcid Vial) 20 mg DAILY 03/10/21 09:00 04/10/21 07:58 20 MG Fentanyl Citrate 30 ml @ 0 mls/hr CONT PRN PRN 04/08/21 07:15 04/09/21 23:24 2.5 MLS/HR Fentanyl Citrate (Fentanyl 2ml Vial) 100 mcg STK-MED ONCE 03/27/21 13:18 03/27/21 13:18 DC Fluconazole/ Sodium Chloride 100 ml @ 100 mls/hr Q24H 03/07/21 09:00 03/17/21 08:03 DC 03/16/21 08:29 100 MLS/HR Furosemide (Lasix) 40 mg 1X ONCE 03/29/21 15:00 03/29/21 15:02 DC 03/29/21 15:22 40 MG Glycerin/ Hypromellose/ Polyethylene (Artificial Tears) 1 drop PRN Q1HR PRN 02/17/21 10:00 04/05/21 08:02 1 DROP Glycopyrrolate (Robinul) 1 mg STK-MED ONCE 03/27/21 14:07 03/27/21 14:07 DC Guaifenesin (Robitussin Dm) 10 ml PRN Q6HRS PRN 02/10/21 23:30 02/16/21 09:06 10 ML Haloperidol Lactate (Haldol Inj) 5 mg Q8HRS 04/01/21 11:30 04/07/21 14:58 DC 04/07/21 05:51 5 MG Heparin Sodium (Porcine) (Heparin Sodium) 5,000 unit Q8HRS 03/13/21 06:00 04/10/21 05:40 5,000 UNIT Hydralazine HCl (Apresoline Inj) 10 mg PRN Q4HRS PRN 02/11/21 12:15 04/10/21 05:55 10 MG Hydromorphone HCl (Dilaudid) 0.5 mg PRN Q10MIN PRN 03/27/21 06:00 03/28/21 05:59 DC Info (PHARMACY MONITORING -- do not chart) 1 each PRN DAILY PRN 04/08/21 08:30 Insulin Glargine (Lantus Syringe) 5 unit BID 03/06/21 09:00 04/09/21 21:51 5 UNIT Insulin Human Lispro (HumaLOG) 12 units Q6HRS 02/20/21 12:00 02/28/21 15:38 DC 02/27/21 05:41 12 UNITS Insulin Human Regular 100 ml @ 10 mls/hr 1X ONCE 02/07/21 06:30 02/07/21 16:54 DC 02/07/21 09:31 6.5 MLS/HR Insulin Human Regular 100 unit/ Sodium Chloride 101 ml @ 0 mls/hr CONT PRN PRN 02/07/21 06:00 02/07/21 16:54 DC Labetalol HCl (Normodyne Iv Push) 10 mg PRN Q2HR PRN 02/08/21 00:45 04/08/21 05:11 10 MG Lactobacillus Rhamnosus (Culturelle) 1 cap BID 02/16/21 21:00 02/17/21 10:45 DC 02/16/21 22:02 1 CAP Lidocaine HCl (Buffered Lidocaine 1%) 3 ml STK-MED ONCE 03/07/21 13:25 03/07/21 13:25 DC Linezolid (Zyvox) 600 mg BID 03/05/21 09:00 03/12/21 07:00 DC 03/11/21 20:33 600 MG Linezolid/Dextrose 300 ml @ 300 mls/hr Q12HR 04/09/21 12:00 04/10/21 07:57 300 MLS/HR Lisinopril (Prinivil) 20 mg DAILY 02/17/21 09:00 03/09/21 10:43 DC 02/27/21 09:10 20 MG Lorazepam (Ativan Inj) 0.5 mg PRN Q6HRS PRN 02/08/21 10:00 04/01/21 15:32 0.5 MG Magnesium Sulfate 50 ml @ 25 mls/hr PRN DAILY PRN 04/04/21 13:00 Meropenem 1 gm/ Sodium Chloride 100 ml @ 200 mls/hr Q24H 03/18/21 17:00 04/09/21 17:00 200 MLS/HR Methylprednisolone Sodium Succinate (SOLU-Medrol 125MG VIAL) 80 mg Q8HRS 02/25/21 09:00 02/26/21 07:09 DC 02/26/21 05:52 80 MG Metoclopramide HCl (Reglan Vial) 10 mg PRN Q6HRS PRN 02/08/21 00:45 02/12/21 15:51 10 MG Micafungin Sodium 100 mg/Dextrose 100 ml @ 100 mls/hr Q24H 03/21/21 18:00 03/25/21 10:27 DC 03/24/21 16:36 100 MLS/HR Midazolam HCl 100 ml @ 0 mls/hr CONT PRN 02/17/21 10:00 03/20/21 17:18 5 MLS/HR Morphine Sulfate (Morphine Sulfate) 1 mg PRN Q10MIN PRN 03/27/21 06:00 03/28/21 05:59 DC Multi-Ingred Cream/Lotion/Oil/ Oint (Artificial Tears Eye Ointment) 1 reji PRN Q1HR PRN 03/17/21 17:30 03/20/21 15:55 1 REJI Multivitamins/ Minerals Therapeutic (Centrum Multivit-Mineral Liq) 5 ml DAILY 03/14/21 09:00 04/10/21 07:58 5 ML Naloxone HCl (Narcan) 0.4 mg PRN Q2MIN PRN 03/27/21 14:30 Neostigmine [place] (Neostigmine Methylsulfate) 5 mg STK-MED ONCE 03/27/21 14:06 03/27/21 14:07 DC Norepinephrine Bitartrate 8 mg/ Dextrose 258 ml @ 21.711 mls/ hr CONT PRN 03/06/21 13:45 03/19/21 18:45 23.3 MLS/HR Nystatin (Nystop) 1 reji BID 03/02/21 21:00 04/10/21 07:59 1 REJI Ondansetron HCl (Zofran Odt) 4 mg 1X ONCE 02/06/21 23:30 02/06/21 23:31 DC 02/06/21 23:57 4 MG Ondansetron HCl (Zofran) 4 mg 1X ONCE 02/07/21 20:00 02/07/21 20:07 DC 02/07/21 20:06 4 MG Phenylephrine HCl (PHENYLEPHRINE in 0.9% NACL PF) 1 mg STK-MED ONCE 03/27/21 13:46 03/27/21 13:46 DC Piperacillin Sod/ Tazobactam Sod (Zosyn Per Pharmacy) 1 each PRN DAILY PRN 02/23/21 07:45 03/17/21 10:04 DC Piperacillin Sod/ Tazobactam Sod 2.25 gm/Sodium Chloride 50 ml @ 100 mls/hr Q8HRS 03/07/21 14:00 03/17/21 08:03 DC 03/17/21 05:58 100 MLS/HR Piperacillin Sod/ Tazobactam Sod 3.375 gm/Sodium Chloride 50 ml @ 100 mls/hr Q6HRS 03/14/21 18:00 Cancel Piperacillin Sod/ Tazobactam Sod 4.5 gm/Sodium Chloride 100 ml @ 200 mls/hr Q6HRS 02/23/21 08:00 03/07/21 08:18 DC 03/07/21 06:12 200 MLS/HR Potassium Chloride/Water 100 ml @ 100 mls/hr Q1H 04/04/21 14:00 04/04/21 15:59 DC 04/04/21 15:12 100 MLS/HR Potassium Chloride (Klor-Con) 40 meq 1X ONCE 02/13/21 12:00 02/13/21 12:01 DC 02/13/21 13:21 40 MEQ Prochlorperazine Edisylate (Compazine) 5 mg PACU PRN PRN 03/27/21 06:00 03/28/21 05:59 DC Propofol (Diprivan) 200 mg STK-MED ONCE 03/27/21 12:02 03/27/21 12:03 DC Remdesivir 100 mg/ Sodium Chloride 230 ml @ 460 mls/hr Q24H 02/15/21 12:00 02/18/21 12:29 DC 02/18/21 11:52 460 MLS/HR Remdesivir 200 mg/ Sodium Chloride 210 ml @ 210 mls/hr 1X ONCE 02/11/21 13:00 02/12/21 11:55 DC 02/11/21 14:33 210 MLS/HR Ringer's Solution 1,000 ml @ 30 mls/hr Q24H 03/27/21 06:00 03/27/21 17:59 DC Rocuronium [place] (Zemuron) 50 mg STK-MED ONCE 03/27/21 13:16 03/27/21 13:17 DC Sennosides (Senna) 17.2 mg PRN BID PRN 02/07/21 08:45 02/22/21 08:29 17.2 MG Sevoflurane (Ultane) 60 ml STK-MED ONCE 03/27/21 14:19 03/27/21 14:20 DC Sodium Chloride 500 ml @ 500 mls/hr 1X ONCE 04/08/21 16:45 04/08/21 17:44 DC 04/08/21 17:10 500 MLS/HR Sodium Chloride (Normal Saline Flush) 3 ml QSHIFT PRN 03/27/21 14:30 Succinylcholine Chloride (Anectine) 200 mg STK-MED ONCE 02/17/21 10:00 02/25/21 08:40 DC Vancomycin HCl (Vanco Per Pharmacy) 1 each PRN DAILY PRN 03/04/21 18:30 03/05/21 08:59 DC 03/04/21 19:47 1 EACH Vancomycin HCl (Vancomycin Trough Level) 1 each 1X ONCE 03/06/21 07:00 03/06/21 07:01 Cancel Vancomycin HCl 1.5 gm/Sodium Chloride 500 ml @ 250 mls/hr Q12H 03/05/21 07:30 03/05/21 08:58 DC Vancomycin HCl 1 gm/Sodium Chloride 250 ml @ 250 mls/hr Q12H 03/04/21 20:00 UNV Vancomycin HCl 2 gm/Sodium Chloride 500 ml @ 250 mls/hr 1X ONCE 03/04/21 19:00 03/04/21 20:59 DC 03/04/21 19:26 250 MLS/HR Vecuronium [place] (Norcuron Bolus) 6 mg PRN Q2HRS PRN 03/06/21 14:30 03/16/21 10:16 5 MG Vitamin A/Vitamin D (Vitamin A & D Ointment) 1 reji PRN Q1HR PRN 03/10/21 01:45 03/20/21 09:34 1 REJI Lab Laboratory Tests Test 04/09/21 11:58 04/09/21 18:07 04/10/21 00:01 04/10/21 05:31 Glucose (Fingerstick) 172 mg/dL (70-99) 159 mg/dL (70-99) 210 mg/dL (70-99) 172 mg/dL (70-99) Test 04/10/21 05:55 Sodium Level 138 mmol/L (136-145) Potassium Level 3.5 mmol/L (3.5-5.1) Chloride Level 99 mmol/L (98-107) Carbon Dioxide Level 24 mmol/L (21-32) Anion Gap 15 (6-14) Blood Urea Nitrogen 51 mg/dL (7-20) Creatinine 3.3 mg/dL (0.6-1.0) Estimated GFR (Cockcroft-Gault) 15.1 Glucose Level 206 mg/dL (70-99) Calcium Level 10.0 mg/dL (8.5-10.1) Results All relevant outside records, renal labs, imaging studies, telemetry/EKG's were reviewed. Justicifation of Admission Dx: Justifications for Admission: Justification of Admission Dx: N/A GIGI CARMEN MD Apr 10, 2021 09:18
--- NOTE | 2021-04-10 10:27 | NUR ---
SS following up with discharge planning. SS reviewed pt chart and discussed with pt RN. Pt is currently on trach shield at 35%. COVID19 recovered. G tube in place. PT/OT evaluated today and recommended acute rehabilitation. Pt on IV Meropenem and IV Zyvox. Self pay. [facility] following. Per, [facility], they have spoken with spouse on several occasions and requested documents. Medicaid and Disability [place] are still pending at this time but they are still needing proof of income and bank statements for past 90 days, vehicle registration, ID, SSN card, Certificate, and proof of address. Pt's spouse reporting that he will find documents and is trying to locate them. SS will continue to follow for discharge planning.
[2021-04-10] MEDS ORDERED: ZOLPIDEM 5 MG TABLET. PO PRN (11:15)
--- NOTE | 2021-04-10 11:55 | PDOC ---
Infectious Disease Note Subjective: Subjective Patient awake alert on vent Fever pattern has improved No further episodes of nausea and vomiting reported per RN Vital Signs: Vital Signs Vital Signs Date Time Temp Pulse Resp B/P (MAP) Pulse Ox O2 Delivery O2 Flow Rate FiO2 04/10/21 11:48 97 Tracheal Collar 8.0 04/10/21 11:04 21 04/10/21 11:00 94 191/101 04/10/21 08:00 99.7 99.7 Physical Exam: PHYSICAL EXAM GENERAL: Intubated HEENT: Normocephalic, atraumatic. Anicteric. Slight bilateral periorbital edema. Latter improving Neck right IJ HDC clean Trach + LUNGS: Rhonchi. HEART: S1, S2. No murmurs. ABDOMEN: Obese, soft. Bowel sounds present. Nontender, nondistended. PEG tube in place GENITOURINARY: Kern and fecal tube in place. EXTREMITIES: Edema present no cyanosis. CENTRAL NERVOUS SYSTEM: Intubated. PSYCHIATRIC: Unable to assess. Derm has pressure wounds wound pictures noted in chart. Generalized rash, Right PICC line February 14 removed; left PICC line 04/07/2021 Right IJ HDC clean March 07 Medications: Inpatient Meds: Medications reviewed. Labs: Lab Laboratory Tests Test 04/09/21 11:58 04/09/21 18:07 04/10/21 00:01 04/10/21 05:31 Glucose (Fingerstick) 172 mg/dL (70-99) 159 mg/dL (70-99) 210 mg/dL (70-99) 172 mg/dL (70-99) Test 04/10/21 05:55 Sodium Level 138 mmol/L (136-145) Potassium Level 3.5 mmol/L (3.5-5.1) Chloride Level 99 mmol/L (98-107) Carbon Dioxide Level 24 mmol/L (21-32) Anion Gap 15 (6-14) Blood Urea Nitrogen 51 mg/dL (7-20) Creatinine 3.3 mg/dL (0.6-1.0) Estimated GFR (Cockcroft-Gault) 15.1 Glucose Level 206 mg/dL (70-99) Calcium Level 10.0 mg/dL (8.5-10.1) Micro GRAM STAIN EVALUATION Final Final This specimen is of good quality and is acceptable for routine bacterial culture. Culture results to follow. NO ORGANISMS SEEN. SQUAMOUS EPI CELL:RARE PMN (WBCs):MODERATE Unless otherwise specified, Testing Performed by: [address] [id number] For Inquires, the Physician may contact the Microbiology department at [phone] RESPIRATORY CULTURE Final Final MODERATE GRAM NEGATIVE RODS on 03/18/21 at 1120 FINAL ID= [[email or web address] [email or web address].] ACINETOBACTER URSINGII. ANTIMICROBIAL SUSCEPTIBILITY Final Comment NEG SAGE 56 ACINETOBACTER URSINGII. ANTIBIOTIC RESULT INTERPRETATION AMPICILLIN/SULBACTAM <=4/2 S AMIKACIN <=16 S CEFTRIAXONE 2 S CEFTAZIDIME 16 I CEFOTAXIME 16 I CIPROFLOXACIN <=0.25 S CEFEPIME 4 S GENTAMICIN <=2 S LEVOFLOXACIN <=0.5 S RUN DATE: 03/19/21 [facility] *LIVE* PAGE 2 RUN TIME: 1120 Specimen Inquiry SPEC: [id number] PATIENT: ARIADNA BANKS [id number] (Continued) Procedure Result CONTINUED ON NEXT PAGE RUN DATE: 03/19/21 [facility] *LIVE* PAGE 3 RUN TIME: 1120 Specimen Inquiry SPEC: [id number] PATIENT: ARIADNA BANKS [id number] (Continued) Procedure Result ANTIMICROBIAL SUSCEPTIBILITY Final (continued) MINOCYCLINE <=4 S MEROPENEM <=1 S TRIMETHOPRIM/SULFAMETHOXAZOLE <=0.5/9.5 S TOBRAMYCIN <=2 S Unless otherwise specified, Testing Performed by: [address] [id number] For Inquires, the Physician may contact the Microbiology department at [phone] ---- -------- Culture negative Objective: Assessment: 1. Febrile illness. 2. COVID-19 infection present on date of admission, 02/06/2021. Status post remdesivir, dexamethasone. 3. Acute hypoxic respiratory failure, status post intubation. S/P Trach on 03/17 Trach cultures positive for Rock albicans and now acinebacter ursungi 4. Diabetes. 5. Diarrhea. 6. Hypertension. 7. Hyperlipidemia. 8. Anemia. 9. BOB on HD 10.UC rock albican, ua neg 11. Nausea and vomiting Possible aspiration Plan: Plan of Care Continue Zyvox Cont Meropenem Status post PICC line exchange Maintain aspiration precautions Monitor lab and cultures C. 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 Prognosis poor If fever recurs may need HD catheter removal D/W KAITLYNN CURIEL MD Apr 10, 2021 11:55
--- NOTE | 2021-04-10 12:51 | PDOC ---
[facility] PROGRESS NOTE Date of Service DOS: DATE: 04/10/21 TIME: 12:48 Chief Complaint Chief Complaint COVID-19 respiratory failure DKA Hypotension Nausea Vomiting Combined metabolic and respiratory acidosis Acute electrolyte derangementhyponatremia, hypochloremia due to volume depletion Hyperglycemia BOB due to ATN, requiring dialysis Erythrocytosis Candiduria Sacral decubitus ulcer S/P Trach on (03/17/21) Trach cultures positive for [place] albicans and now acinebacter ursungi History of Present Illness History of Present Illness 04/10/2021 Patient seen and examined in the ICU She is pleasantly confused Has a trach shield in place Discussed with RN Chart reviewed We are adding in some as needed Ativan and scheduled Prozac Ms Borges is a 46 year old female who presented with nausea/vomiting since 7 AM 02/06/2021 in the morning. Patient stated that her recently tested positive for Covid. She states that he "coughed in my face because he thought it was funny." She reports subjective fevers and chills and nausea/vomiting. Denies sore throat, cough, shortness of breath. No chest pain. Does have some upper abdominal discomfort after vomiting, that she attributes to muscular strain. She was not vaccinated for Covid. 02/08: No acute events overnight. Patient seen and examined bedside and resting comfortably. Continues to complain of nausea not able to tolerate any diet at this time. Saturating 98% on room air. Patient's chart, labs, images were reviewed and discussed with RN 02/09: Afebrile, currently breathing on room air. Still with complaints of nausea and vomiting x3 today. States that she has history of similar symptoms that have been mildly improved with IV Dilaudid. 02/10: Patient febrile today with T-max 102.2 F. She still admits to nausea, denies any further vomiting. We will continue to provide supportive care and monitor for any recurrent fevers overnight. Patient continues to improve may discharge tomorrow to continue self-isolation. 02/11: Febrile overnight, T-max 102.3 F. She did become hypoxic overnight, currently breathing on 4 L nasal cannula. Also admits to associated vomiting or diarrhea overnight. Discussed with RN, will initiate remdesivir and closely monitor LFTs. IV Decadron, and prophylactic antibiotics. 02/12: Low-grade fever overnight, T-max 99.7. Currently breathing on room air. Will discontinue remdesivir, steroids, and antibiotics; will observe overnight. Still with complaints of vomiting x1 and diarrhea. We will continue to provide supportive care and hope to discharge in the next day or so. 02/13: Afebrile. Still complains of intermittent diarrhea. At the time of my evaluation she was breathing on 6 L nasal cannula; this is somewhat misleading as patient states that she did not feel short of breath but was placed on 6 L by nursing staff overnight. 02/14: Afebrile, currently breathing on 8 L nasal cannula. There has been some misleading documentation, chart oxygen this patient is requiring. Discussed with RN, will resume remdesivir to complete total of 5 days. Continue to monitor L FTs. Will add steroids, Rocephin, and azithromycin. 02/15: Afebrile. Became much more hypoxic overnight, requiring BiPAP. At the time of my evaluation she is still breathing on BiPAP. Consultation was placed to pulmonology. Had discussion with Dr. Myrick about initiating Tocilizumab 02/16: No acute events overnight. Patient becoming more hypoxic saturating 94% and requiring BiPAP. Patient will be transferred to the ICU at this time. For worsening clinical status. Discussed with pulmonary. Patient's chart, labs, images were reviewed and discussed with RN 02/17: Transferred to ICU yesterday afternoon. Seen and examined at bedside she remains on 100% FiO2 on BiPAP. Respirations do appear somewhat labored. Suspect intubation may be impending. We will closely monitor. Increase lisinopril to 20 today. 02/18: Patient required intubation yesterday afternoon. Saw and examined this morning. She is intubated and sedated. Increase insulin today. Covid protocol ordered. Wean as tolerated. Plan of care discussed with bedside nurse. 02/19: Bedside. She remains intubated and sedated. Continue Covid protocol. Wean oxygen sedation as tolerated. Pulmonary following. Plan of care discussed with bedside RN. 02/20: Patient seen and examined at bedside. She remains intubated and sedated. No major clinical changes. Continue current treatment. Pulmonary following. Plan of care discussed with bedside RN. 02/21: Patient seen and examined at bedside. Remains intubated and sedated date and admission clinical changes. Increase free water flushes today due to hypernatremia. Plan of care discussed with bedside nurse. 02/22: Patient seen and examined at bedside. O2 requirement actually improving, although remains intubated. Possible SBT in the coming days. Hypernatremia improving. Plan of care discussed bedside RN. 02/23: Patient remains in ICU on ventilator with FiO2 100%, PEEP 7. Repeat chest x-ray yesterday showed diffuse bilateral pulmonary opacities with no interval improvement. Will discontinue Rocephin and initiate Zosyn. We will continue IV steroids for a full 10-day course 02/24: Afebrile. On vent with FiO2 40%, PEEP 6. Her Coreg has been held due to persistent bradycardia. No documented history of systolic heart failure or previous echocardiogram. Will need to obtain echocardiogram prior to discharge. Continue IV steroids and antibiotics. 02/25: Afebrile. Remains ventilated with FiO2 45%, PEEP 6. Chest x-ray today showed slight improvement of the pulmonary infiltrates, no pneumothorax. Completed 10-day course of IV Decadron. Will initiate slow Solu-Medrol taper. Continue IV Zosyn. Continue supportive care. 02/26: Afebrile. On vent with FiO2 45%, PEEP 6. Completed 10 days of IV Decadron. Will continue IV Zosyn. Continue supportive care. Critical care time 3 0 minutes spent reviewing charts, reviewing imaging, reviewing labs, discussion with RN. 02/27: Afebrile. On vent with FiO2 45%, PEEP 6. Completed 10 days of steroids and completed remdesivir. Continue with IV Zosyn. CPAP trial yesterday. Continue NG tube and supportive care. 02/28:. Patient remains on vent with FiO2 40%, PEEP 5. Afebrile. Completed steroids and remdesivir. Some noted hypoglycemia overnight, will de-escalate basal insulin. Continue IV Zosyn. Ventilator management per pulmonology. Continue NG tube and supportive care. 03/01: On vent with FiO2 40%, PEEP 5. Afebrile. Completed steroids and remdesivir. Blood glucose well controlled. Continue empiric antibiotics with Zosyn. Ventilator management per pulmonology. Continue NG tube and supportive care. 03/02: No acute events overnight. Patient hypotensive the morning due to oversedation. Will wean off sedation and keep antihypertensive medications on board. Currently saturating 100% on vent settings of 18/450/40/5. Will attempt spontaneous breathing trial today to see how patient does. 03/03: No acute events overnight. Patient saturating 98% on vent settings of 18/450/40/5. Will defer spontaneous breathing trials to pulmonary at this time. Patient's chart, labs, images were reviewed and discussed with RN 03/04: No acute events overnight. Patient saturating 9 9% on vent settings of 18/450/30/5. Patient currently is unable to tolerate weaning. Per pulmonary. Patient's chart, labs, images were reviewed and discussed with RN 03/05: No acute events overnight. Patient is saturating 97% on vent settings of 18/450/55/5. Her FiO2 needs to be increased due to abnormal ABG with 7.3 . Patient's chart, labs, images were reviewed and discussed with RN 03/06: No acute events overnight. Patient saturating 94% on vent settings of 18/450/55/5. Chest x-ray showing increase in pulmonary infiltrates. Wound care is consulted for decubitus ulcer patient's chart, labs, images were reviewed and discussed with RN 03/07: No acute events overnight. Patient saturating 94% on vent settings of 20/450/70/8. Patient now heading into renal failure with her creatinine bumped up from 1.5-4.2. Decreased urine output. Plan for hemodialysis today and temporary catheter placement and nephrology is consulted. 03/08: No acute events overnight. Patient did have a nausea vomiting episode and tube feeds were held. KUB repeat shows NG tube still in the stomach. Will resume tube feeds at trickle and advance to goal today. Will start hemodialysis soon. 03/09: Seen on vent 20/450/60%/8. ABG 7.2 WBC 11.4, Hb 7.4, platelets 188, NA 131, K4.9, BUN 48, CR 51, glucose 199, phosphorus 7.9, mag 2.2, AST 265 ALT 219, albumin 1.1. Chest radiograph appears unchanged from prior. Dialysis x1 today 03/10: Afebrile. Seen on vent, 20/450/60/7 with ABG 7.3 . Tolerated dialysis well on 03/09. LFTs similar. 03/11: Afebrile. Seen on vent, sedated. Still requiring Levophed for BP support. WBC 16.7, Hb 8.1, NA 130, ABG 7.3 on 55% FiO2 PEEP 6. On Zosyn and Zyvox Diflucan. Dialysis today 03/12: Afebrile. Still requiring Levophed for BP support sedated with Versed febrile Precedex. WBC 16.1, Hb 8.5, platelets 185, NA 133. Trach plan tentatively 03/17. O2 saturations 93% on 50% FiO2 PEEP 6. ABG 7. On Zosyn and Zyvox Diflucan. 03/13: Afebrile. Still on Levophed for BP support lightly sedated. 7. on 45% FiO2. Plan for dialysis today. On Zosyn and Zyvox Diflucan. More swollen today. 03/14: Afebrile. Weaning down off Levophed. WBC 14.9 NA 132. O2 saturations 92% on 45% FiO2 PEEP 5. Afebrile. O2 saturations 91% on FiO2 45% PEEP 6. Continued on Zosyn and Zyvox Diflucan. Tentative trach planned 03/17/2021 CC time 31 minutes 03/16/21: Patient seen and examined in ICU. Periorbital as well as upper and lower extremity edema noted. OG feed running at 30cc/hr. Still on vent on pressure control with a rate of 24 with 45% FiO2. Patient has rectal bag. Currently she has 98% O2 sat. Currently sedated with Dexmedetomidine, Propofol, Versed, and Fentanyl. Discussed with RN. Chart reviewed. 03/17/21: Patient was seen and examined in the ICU today. Periorbital edema as well as abdominal and mons pubis edema was noted. Patient still on vent on pressure control with Fi02 of 45% plus 6 PEEP. Patient had rectal bag. Currently sedated on Dexmedetomidine, Propofol, Versed, and Fentanyl. Discussed with RN. Chart reviewed. 03/18/21: Patient seen and examined in ICU. On vent via trach that was placed yesterday. Vent settings are Pressure Control of 40 with FiO2 of 45% and 6 PEEP. Trach clean and dry. Orbital swelling still present. Pupils are sluggish. Patient on TPN running at 30cc/hr. Kern to bedside and rectal bag in place. Current O2 sat at 94%. Sedated on Dexmedetomidine, Propofol, Versed, and Fentanyl. Discussed with RN. Chart reviewed. 03/19/21: Patient was seen and examined in the ICU today. Currently on vent via trach on pressure control of 42, rate of 24, FiO2 of 45%, and 6 PEEP. O2 sat is at 97% while patient is being examined. Trach is clean and dry. PICC line is in place on right arm. Periorbital swelling has decreased slightly since examined yesterday. Patient is sedated on Dexmedetomidine, Propofol, Versed, and Fentanyl. Discussed with RN. Chart reviewed. 03/20/21: Patient seen and examined in the ICU. Periorbital edema is slightly decreased since yesterday. O2 sat while being examined was 93%. NG tube in place and running at 30cc/hr. Patient on vent via trach on pressure control of 40 with FiO2 of 45 and rate of 24. Sedated on Dexmedetomidine, Propofol, Versed, and Fentanyl. PICC line in place. Kern to bedside. Rectal bag present. Discussed with RN. Chart reviewed. 03/21/21: Patient was seen and examined in the ICU today. She was semi-sedated.. She was on Dexmedetomidine and Fentanyl. We are holding the Propofol. Her eyes were periodically open but she was not making meaningful eye contact or tracking. On vent via trach with pressure control of 40 and FiO2 at 45. Rate was 24. PEEP was 5. Trach was clean and dry. While being examined, her O2 sat was 94%. Rectal bag and Kern to bedside in place. NG tube in place and feeding at 30cc/hr. IV fluids still running. Levophed has been stopped. Discussed with RN. Chart reviewed. 03/22/21: Patient was seen and examined in the ICU. She was semi-sedated on Pro pofol and Dexmedetomidine. Her eyes were open but she did not make meaningful eye contact. Her blood pressure was elevated (198/102) while being examined and she had just been given hydralazine to lower it. There are plans to place a PEG tube tomorrow. Currently on vent via trach on pressure control of 40 with FiO2 of 45%, 5 PEEP, and a rate of 24. Current O2 sat is 98%. She is feeding through an NG tube at 30cc/hr. Rectal bag and Kern to bedside present. SCDs on patient for DVT prophylaxis. She did not do her daily dialysis today but the plan is to start back on that tomorrow. Discussed with RN. Chart reviewed. 03/23/2021: Patient remains in ICU on ventilator. FiO2 40%, PEEP 5. Trach cultures positive for [place] albicans and acinebacter ursungi. We will continue treatment with IV antibiotics and micafungin, per ID. HD per nephrology. Plans for PEG tube placement today. 30 minutes critical care time was spent reviewing charts, reviewing labs, reviewing imaging, discussion with RN. 03/24/2021: Afebrile. On vent with FiO2 45%, PEEP 5. Had attempted PEG placement per GI yesterday, but unable to locate safe path for PEG; will co nsider surgical opinion. Once PEG is in place she should be stable for LTAC transfer when accepted. Continue antibiotics, per ID. 30 minutes critical care time was spent reviewing charts, reviewing labs, reviewing imaging, discussion with RN. 03/25/2021: Febrile overnight with T-max 101.5 F. On vent with FiO2 45%, PEEP 5. Surgery has been consulted with tentative plans for laparoscopic versus open gastrostomy placement tomorrow. Trach cultures positive for [place] albicans and now acinebacter ursungi; will continue antibiotic management, per ID. Hemodialysis, per nephrology. Patient needing LTAC placement, but currently without benefits. bridge worker following for discharge planning. Critical care time 30 minutes spent reviewing charts, reviewing labs, reviewing imaging, discussion with RN. 03/26/2021: Febrile today with T-max 100.5 F. Awake on vent with FiO2 45%, PEEP 5. When I ask if she remembers any she nods. G-tube placement scheduled for tomorrow, per general surgery. Chest x-ray today showed slight interval increase in diffuse infiltrate. Continue antibiotic management, per ID. Hemodialysis per nephrology. Reportedly did not tolerate CPAP trial this morning. bridge worker following for LTAC placement. Critical care time 30 minutes spent reviewing charts, reviewing labs, reviewing imaging, discussion with RN. 03/27/2021: On vent with FiO2 45%, PEEP 5. Afebrile today. Continue treatment of acute renal failure requiring HD, per nephrology. Monitor kidney function for recovery. G-tube placement scheduled for today, per general surgery. Likely LTAC placement soon, but this is been a difficult as she is self-pay without benefits; high school social studies tutor following. Critical care time 30 minutes spent reviewing charts, reviewing labs, reviewing imaging, discussion with RN. 03/28/2021: Afebrile. On vent with FiO2 40%, PEEP 5. Had laparoscopic gastrostomy tube placed yesterday, per general surgery. Continue treatment of acute renal failure requiring HD, per nephrology. Continue IV antibiotics, per ID. Likely LTAC placement soon, but this is been a difficult as she is self-pay without benefits; high school social studies tutor following. Critical care time 30 minutes spent reviewing charts, reviewing labs, reviewing imaging, discussion with RN. 03/29/2021: Afebrile. On vent with FiO2 45%, PEEP 5. S/P laparoscopic gastrostomy tube; tube feeds running. HD, per nephrology. Continue meropenem, per ID. Anticipate LTAC placement soon now that PEG has being placed; high school social studies tutor helping in these regards. Critical care time 30 minutes spent reviewing charts, reviewing labs, reviewing imaging, discussion with RN. 03/30 No major events or clinical changes overnight. Patient evaluated at bedside this morning on trach and G-tube. Tolerating these well. Has been working on insurance for patient for placement as she will need long-term care. Guarded prognosis. Plan of care discussed with bedside nurse. 03/31 No major clinical changes. Remains trached. Sedated. Continue current plan. 04/01 No changes. Patient resting in bed when evaluated sedated. is supposed to be working on insurance for placement for the patient. Otherwise no changes. 04/02 Patient febrile overnight, daptomycin added this morning per infectious disease. Otherwise no major clinical changes. Awaiting insurance. Infectious disease, pulmonary and renal following. Plan of care discussed with bedside RN. 04/03 Patient undergoing dialysis today. Evaluated at bedside this morning. otherwise continue current plan. supposed working on insurance. 04/04 No major overnight changes. Continue current plan. 04/05 Patient notably more movement this morning eyes open resting in bed otherwise no major changes. Continue current plan. Insurance pending. 04/06 Patient notably more movement this morning eyes open resting in bed current plan. Insurance pending. Continue daptomycin, renal dosing April 02 F/U Blood culture UA urine culture C. diff PCR negative 32 min cc time 04/07 Patient notably more movement this morning eyes open resting in bed current plan. Insurance pending. Continue daptomycin, renal dosing April 02 F/U Blood culture UA urine culture C. diff PCR negative Abnormal chest x-ray consistent with COVID-19 viral pneumonia. Diabetic ketoacidosis--resolved obesity contributing to hypoxia as well. BOB . hemodialysis started 03/07 DVT GI prophylaxis Nutritional support 34 min cc time 04/08 Patient notably more movement this morning eyes open resting in bed current plan. Insurance pending. Continue daptomycin, renal dosing April 02 F/U Blood culture UA urine culture C. diff PCR negative s/p lap G-tube 03/27 Abnormal chest x-ray consistent with COVID-19 viral pneumonia. Diabetic ketoacidosis--resolved obesity contributing to hypoxia as well. BOB . hemodialysis started 03/07 DVT GI prophylaxis Nutritional support Right PICC line February 14 out; left PICC line 04/07/2021 Right IJ HDC clean March 07 32 min cc time 04/09 non Oliguric for past 11/2 -2 weeks , good response to IV NS bolus .requiring dialysis., currently on MWF schedule, tolerating trach shield well.using her speaking valve./ resting in bed current / states she feels better Start iv Zyvox Cont Meropenem DC daptomycin post PICC line exchange aspiration precautions C. diff PCR negative F/U Blood culture UA urine culture s/p lap G-tube 03/27 Abnormal chest x-ray consistent with COVID-19 viral pneumonia. Diabetic ketoacidosis--resolved obesity contributing to hypoxia as well. BOB . hemodialysis started 03/07 DVT GI prophylaxis Nutritional support Right PICC line February 14 out; left PICC line 04/07/2021 Right IJ HDC clean March 07 34 min cc time Vitals/I&O Vitals/I&O: Vital Signs Date Time Temp Pulse Resp B/P (MAP) Pulse Ox O2 Delivery O2 Flow Rate FiO2 04/10/21 11:48 97 Tracheal Collar 8.0 04/10/21 11:34 20 04/10/21 11:00 94 191/101 04/10/21 08:00 99.7 99.7 I & O 04/09/21 04/09/21 04/10/21 15:00 23:00 07:00 Intake Total 300 ml 373.5 ml Output Total 280 ml 555 ml 547 ml Balance 20 ml -181.5 ml -547 ml Physical Exam Physical Exam: GENERAL: Intubated HEENT: Normocephalic, atraumatic. Anicteric. Slight bilateral periorbital edema. Latter improving Neck right IJ HDC clean Trach + LUNGS: Rhonchi. HEART: S1, S2. No murmurs. ABDOMEN: Obese, soft. Bowel sounds present. Nontender, nondistended. PEG tube in place GENITOURINARY: Kern and fecal tube in place. EXTREMITIES: Edema present no cyanosis. CENTRAL NERVOUS SYSTEM: Intubated. PSYCHIATRIC: Unable to assess. Derm has pressure wounds wound pictures noted in chart. Generalized rash, Right PICC line February 14 removed; left PICC line 04/07/2021 Right IJ HDC clean March 07 General: Alert, Cooperative, No acute distress, Other (sedated) Heart: Regular rate, Normal S1, Normal S2 Lungs: Clear Abdomen: Normal bowel sounds, Soft, Other (G-tube in place) Extremities: No cyanosis, Other (ANASARCA) Skin: No rashes, No significant lesion Labs Labs: Laboratory Tests Test 04/09/21 18:07 04/10/21 00:01 04/10/21 05:31 04/10/21 05:55 Glucose (Fingerstick) 159 mg/dL (70-99) 210 mg/dL (70-99) 172 mg/dL (70-99) Sodium Level 138 mmol/L (136-145) Potassium Level 3.5 mmol/L (3.5-5.1) Chloride Level 99 mmol/L (98-107) Carbon Dioxide Level 24 mmol/L (21-32) Anion Gap 15 (6-14) Blood Urea Nitrogen 51 mg/dL (7-20) Creatinine 3.3 mg/dL (0.6-1.0) Estimated GFR (Cockcroft-Gault) 15.1 Glucose Level 206 mg/dL (70-99) Calcium Level 10.0 mg/dL (8.5-10.1) Assessment and Plan Assessmemt and Plan Problems Medical Problems: (1) Ketoacidosis Status: Acute COVID-19 respiratory failure DKA Hypotension Nausea Vomiting Combined metabolic and respiratory acidosis Acute electrolyte derangementhyponatremia, hypochloremia due to volume depletion Hyperglycemia BOB due to ATN, requiring dialysis Erythrocytosis Candiduria Sacral decubitus ulcer S/P Trach on (03/17/21) Trach cultures positive for [place] albicans and now acinebacter ursungi Plan We will try to transfer out of ICU to the medical floor Add in as needed Ativan so we can stop the Precedex Schedule Prozac 20 a day Cardiac monitoring Home meds DVT prophylaxis Full code Continue other treatments Appreciate subspecialist input Prognosis guarded but improved a lot over the last few days Comment Review of Relevant I have reviewed the following items mazin (where applicable) has been applied. Medications: Current Medications Medications (Trade) Dose Ordered Sig/Pepe Route PRN Reason Start Time Stop Time Status Last Admin Dose Admin Fluoxetine HCl (PROzac) 20 mg 1X ONCE PEG 04/10/21 11:15 04/10/21 11:34 DC 04/10/21 12:10 Justifications for Admission Other Justification DIANELYS BLACKMON III DO Apr 10, 2021 12:51
--- NOTE | 2021-04-10 13:00 | PDOC ---
PULMONARY PROGRESS NOTES DATE: 04/10/21 TIME: 12:59 Subjective Patient is tolerating trach shield well. She is using her speaking valve. Vitals Vital Signs Date Time Temp Pulse Resp B/P (MAP) Pulse Ox O2 Delivery O2 Flow Rate FiO2 04/10/21 12:00 Trach Collar 04/10/21 11:48 97 8.0 04/10/21 11:34 20 04/10/21 11:00 94 191/101 04/10/21 08:00 99.7 99.7 Lungs: Clear Cardiovascular: S1 Abdomen: Soft, Non-tender Skin: Warm Labs Laboratory Tests Test 04/08/21 18:37 04/08/21 23:57 04/09/21 06:25 04/09/21 06:46 Glucose (Fingerstick) 241 mg/dL (70-99) 184 mg/dL (70-99) 259 mg/dL (70-99) White Blood Count 13.9 x10^3/uL (4.0-11.0) Red Blood Count 3.23 x10^6/uL (3.50-5.40) Hemoglobin 9.5 g/dL (12.0-15.5) Hematocrit 28.3 % (36.0-47.0) Mean Corpuscular Volume 88 fL (79-100) Mean Corpuscular Hemoglobin 29 pg (25-35) Mean Corpuscular Hemoglobin Concent 34 g/dL (31-37) Red Cell Distribution Width 14.4 % (11.5-14.5) Platelet Count 307 x10^3/uL (140-400) Neutrophils (%) (Auto) 77 % (31-73) Lymphocytes (%) (Auto) 13 % (24-48) Monocytes (%) (Auto) 10 % (0-9) Eosinophils (%) (Auto) 0 % (0-3) Basophils (%) (Auto) 0 % (0-3) Neutrophils # (Auto) 10.7 x10^3/uL (1.8-7.7) Lymphocytes # (Auto) 1.8 x10^3/uL (1.0-4.8) Monocytes # (Auto) 1.3 x10^3/uL (0.0-1.1) Eosinophils # (Auto) 0.0 x10^3/uL (0.0-0.7) Basophils # (Auto) 0.0 x10^3/uL (0.0-0.2) Sodium Level 137 mmol/L (136-145) Potassium Level 3.6 mmol/L (3.5-5.1) Chloride Level 97 mmol/L (98-107) Carbon Dioxide Level 25 mmol/L (21-32) Anion Gap 15 (6-14) Blood Urea Nitrogen 39 mg/dL (7-20) Creatinine 3.0 mg/dL (0.6-1.0) Estimated GFR (Cockcroft-Gault) 16.9 BUN/Creatinine Ratio 13 (6-20) Glucose Level 252 mg/dL (70-99) Calcium Level 9.8 mg/dL (8.5-10.1) Total Bilirubin 0.7 mg/dL (0.2-1.0) Aspartate Amino Transf (AST/SGOT) 16 U/L (15-37) Alanine Aminotransferase (ALT/SGPT) 10 U/L (14-59) Alkaline Phosphatase 185 U/L (46-116) Total Protein 9.1 g/dL (6.4-8.2) Albumin 3.8 g/dL (3.4-5.0) Albumin/Globulin Ratio 0.7 (1.0-1.7) Test 04/09/21 07:42 04/09/21 11:58 04/09/21 18:07 04/10/21 00:01 O2 Saturation 98 % (92-99) Arterial Blood pH 7.54 (7.35-7.45) Arterial Blood pCO2 at Patient Temp 25 mmHg (35-46) Arterial Blood pO2 at Patient Temp 162 mmHg (75-108) Arterial Blood HCO3 21 mmol/L (21-28) Arterial Blood Base Excess -1 mmol/L (-3-3) FiO2 40% vent Glucose (Fingerstick) 172 mg/dL (70-99) 159 mg/dL (70-99) 210 mg/dL (70-99) Test 04/10/21 05:31 04/10/21 05:55 Glucose (Fingerstick) 172 mg/dL (70-99) Sodium Level 138 mmol/L (136-145) Potassium Level 3.5 mmol/L (3.5-5.1) Chloride Level 99 mmol/L (98-107) Carbon Dioxide Level 24 mmol/L (21-32) Anion Gap 15 (6-14) Blood Urea Nitrogen 51 mg/dL (7-20) Creatinine 3.3 mg/dL (0.6-1.0) Estimated GFR (Cockcroft-Gault) 15.1 Glucose Level 206 mg/dL (70-99) Calcium Level 10.0 mg/dL (8.5-10.1) Laboratory Tests Test 04/09/21 18:07 04/10/21 00:01 04/10/21 05:31 04/10/21 05:55 Glucose (Fingerstick) 159 mg/dL (70-99) 210 mg/dL (70-99) 172 mg/dL (70-99) Sodium Level 138 mmol/L (136-145) Potassium Level 3.5 mmol/L (3.5-5.1) Chloride Level 99 mmol/L (98-107) Carbon Dioxide Level 24 mmol/L (21-32) Anion Gap 15 (6-14) Blood Urea Nitrogen 51 mg/dL (7-20) Creatinine 3.3 mg/dL (0.6-1.0) Estimated GFR (Cockcroft-Gault) 15.1 Glucose Level 206 mg/dL (70-99) Calcium Level 10.0 mg/dL (8.5-10.1) Medications Active Scripts Medications Dose Route/Sig Max Daily Dose Days Date Category Novolog Flexpen (Insulin Aspart) 100 Unit/1 Ml Insuln.pen 3-7 SQ TIDACHC 02/07/21 Reported Lisinopril 5 Mg Tablet 1 Tab PO DAILY 02/07/21 Reported Lantus Solostar (Insulin Glargine,Hum.rec.anlog) 100 Unit/1 Ml Insuln.pen 5 Unit SQ QHS 04/09/15 Reported Atorvastatin Calcium 40 Mg Tablet 40 Mg PO HS 04/09/15 Reported Impression . IMPRESSION: 1. Acute hypoxic respiratory failure secondary to COVID-19 viral pneumonia/acute lung injury and early acute respiratory distress syndrome. S/P intubation 02/17/21. Status post tracheostomy. 2. Nonsmoker. 3. Abnormal chest x-ray consistent with COVID-19 viral pneumonia. 4. Diabetic ketoacidosis--resolved 5. Underlying obesity contributing to hypoxia as well. 6. BOB . hemodialysis started 03/07 7. Fever, 30 ID 8. Abnormal chest x-ray with diffuse interstitial infiltrates compatible with viral pneumonia 9. [place] in the sputum is a contamination 10. Septic shoc 11. s/p lap G-tube 03/27 12. Delirium Plan . Updated 04/10 We will do 24 hr trach shield trials Tolerating it well so far. We will continue with speaking valve. She currently has size 7 trach. Once she is able to tolerate for 48 hours on trach shield,. We will try capping trach. Per discussion with general surgery, no plan to further downsize trach. If she does well in next week, decannulate No further emesis. No evidence of ileus. Antibiotics per ID Follow cultures Continue hemodialysis. Follow renal recommendations. DVT GI prophylaxis Nutritional support Updated 04/09 We will do daily trach shield trials as tolerated. Tolerating it well so far. We will continue with speaking valve. She currently has size 7 trach. Once she is able to tolerate for 48 hours on trach shield,. We will try capping trach. Per discussion with general surgery, no plan to further downsize trach. If she does well in next week, decannulate No further emesis. No evidence of ileus. Antibiotics per ID Follow cultures Continue hemodialysis. Follow renal recommendations. DVT GI prophylaxis Nutritional support Updated 04/08 We will do daily trach shield trials as tolerated. We will do ABGs if there is paradoxical breathing during the trial. Patient had periods of emesis today. Will obtain KUB to rule out any ileus. Antibiotics per ID Follow cultures Continue hemodialysis. Follow renal recommendations. DVT GI prophylaxis Nutritional support Updated 04/07 Patient tolerated pressure support for 11 hours yesterday. We will initiate trach shield trial today. Antibiotics per ID Follow cultures Continue hemodialysis. Follow renal recommendations. DVT GI prophylaxis Nutritional support Updated 04/06 Antibiotics per ID Follow cultures Continue current vent settings Pressure support as tolerated once hemodialysis has been completed DVT GI prophylaxis Nutritional support Updated 04/05 cont vent support setting reviewed decrease sedation weaning as tolerated need high ps during weaning hd per nephro M-W-F Antibiotics per ID, actinobacter in sputum. elevate hob hep sq pepcid for prophylaxis discussed w rn Updated 04/04 cont vent support setting reviewed decrease sedation weaning as tolerated hd per nephro Antibiotics per ID, actinobacter in sputum. Cultures so far negative elevate hob hep sq pepcid for prophylaxis discussed w rn Updated 04/03 Patient currently undergoing hemodialysis, on assist control ventilation We have been unable to sedate patient and perform spontaneous breathing trials throughout the day with pressure support Antibiotics per ID, actinobacter in sputum. Cultures so far negative We will continue current support Hemodialysis per nephrology EMILY POSADA MD Apr 10, 2021 13:00
[2021-04-10] MEDS ORDERED: DIALYSIS PATIENT. MC PRN (13:30)
[2021-04-10] MEDS: INSULIN GLARGINE SYRINGE. SQ SCH ×2 (16:31→20:50)
--- NOTE | 2021-04-10 19:12 | NUR ---
Attempted several times to give PO medications through PEG tube, patient adamantly refused. Patient was confused throughout the day, hallucinating seeing things in the room and events that didn't happen. After dialysis, RN walked into the room and patient had removed the PEG tube, it was sitting beside her on the bed. Patient has no recollection of removing the tube or even having the tube in the first place. Notified Dr. Contreras, will notify GI routinely tomorrow. Notified patient's when he came to visit, educated on ICU delirium. Will continue to monitor.
[2021-04-10] MEDS: ATORVASTATIN CALCIUM 40 MG TABLET. PO SCH (20:51)
[2021-04-10] MEDS: ONDANSETRON PF 4 MG/2 ML VIAL. IVP PRN (22:34)
[2021-04-11] VITALS (25 sets, daily range): BP systolic 103–222; BP diastolic 55–121
[2021-04-11] MEDS: INSULIN LISPRO 300 UNITS/3 ML VIAL. SQ SCH ×5 (00:03→23:31)
[2021-04-11] MEDS: LABETALOL 20 MG/4 ML DISP.SYRIN. IVP PRN ×2 (01:01→03:10)
[2021-04-11] MEDS: DEXMEDETOMIDINE 400 MCG in IV NORMAL SALINE 100ML 96 ML IV PRN ×4 (01:57→21:03)
[2021-04-11] MEDS: PROCHLORPERAZINE 10 MG/2 ML VIAL. IV PRN (02:44)
--- NOTE | 2021-04-11 02:49 | NUR ---
Pt. with very frequent episodes of emesis/dry heaving. Ondansetron administered to no effect. Asked pt. if she would be amenable to NGT placement, stated she would. NGT placed and connected to LIS with very little dark green residual returned.
[2021-04-11] MEDS: HEPARIN for SUB-Q USE 5,000 UNIT/ML VIAL. SQ SCH ×3 (06:05→21:04)
[2021-04-11] MEDS: MULTIVITAMINS,THERAPEUTIC 5 ML ORAL LIQUID. PEG SCH (09:00)
[2021-04-11] MEDS: DOCUSATE 100 MG/10 ML SOLUTION. PO SCH ×2 (09:00→20:40)
--- NOTE | 2021-04-11 09:38 | PDOC ---
PULMONARY PROGRESS NOTES DATE: 04/11/21 TIME: 09:36 Subjective Patient had episodes of emesis again last night. Patient is tolerating trach shield well. She is using her speaking valve. Vitals Vital Signs Date Time Temp Pulse Resp B/P (MAP) Pulse Ox O2 Delivery O2 Flow Rate FiO2 04/11/21 08:20 100 Tracheal Collar 8.0 04/11/21 06:00 98 19 132/69 04/11/21 05:00 98.5 98.5 Lungs: Clear Cardiovascular: S1 Abdomen: Soft, Non-tender Skin: Warm Labs Laboratory Tests Test 04/09/21 11:58 04/09/21 18:07 04/10/21 00:01 04/10/21 05:31 Glucose (Fingerstick) 172 mg/dL (70-99) 159 mg/dL (70-99) 210 mg/dL (70-99) 172 mg/dL (70-99) Test 04/10/21 05:55 04/10/21 20:47 04/11/21 00:01 04/11/21 06:03 Sodium Level 138 mmol/L (136-145) Potassium Level 3.5 mmol/L (3.5-5.1) Chloride Level 99 mmol/L (98-107) Carbon Dioxide Level 24 mmol/L (21-32) Anion Gap 15 (6-14) Blood Urea Nitrogen 51 mg/dL (7-20) Creatinine 3.3 mg/dL (0.6-1.0) Estimated GFR (Cockcroft-Gault) 15.1 Glucose Level 206 mg/dL (70-99) Calcium Level 10.0 mg/dL (8.5-10.1) Glucose (Fingerstick) 207 mg/dL (70-99) 230 mg/dL (70-99) 234 mg/dL (70-99) Laboratory Tests Test 04/10/21 20:47 04/11/21 00:01 04/11/21 06:03 Glucose (Fingerstick) 207 mg/dL (70-99) 230 mg/dL (70-99) 234 mg/dL (70-99) Medications Active Scripts Medications Dose Route/Sig Max Daily Dose Days Date Category Novolog Flexpen (Insulin Aspart) 100 Unit/1 Ml Insuln.pen 3-7 SQ TIDACHC 02/07/21 Reported Lisinopril 5 Mg Tablet 1 Tab PO DAILY 02/07/21 Reported Lantus Solostar (Insulin Glargine,Hum.rec.anlog) 100 Unit/1 Ml Insuln.pen 5 Unit SQ QHS 04/09/15 Reported Atorvastatin Calcium 40 Mg Tablet 40 Mg PO HS 04/09/15 Reported Impression . IMPRESSION: 1. Acute hypoxic respiratory failure secondary to COVID-19 viral pneumonia/acute lung injury and early acute respiratory distress syndrome. S/P intubation 02/17/21. Status post tracheostomy. 2. Nonsmoker. 3. Abnormal chest x-ray consistent with COVID-19 viral pneumonia. 4. Diabetic ketoacidosis--resolved 5. Underlying obesity contributing to hypoxia as well. 6. BOB . hemodialysis started 03/07 7. Fever, 30 ID 8. Abnormal chest x-ray with diffuse interstitial infiltrates compatible with viral pneumonia 9. [place] in the sputum is a contamination 10. Septic shoc 11. s/p lap G-tube 03/27 12. Delirium Plan . Updated 04/11 We will do 24 hr trach shield trials Tolerating it well so far. We will continue with speaking valve. She currently has size 7 trach. Once she is able to tolerate for 48 hours on trach shield,. We will try capping trach. Per discussion with general surgery, no plan to further downsize trach. If she does well in next week, decannulate No evidence of ileus. Emesis per PCP Antibiotics per ID Follow cultures Continue hemodialysis. Follow renal recommendations. DVT GI prophylaxis Nutritional support Updated 04/10 We will do 24 hr trach shield trials Tolerating it well so far. We will continue with speaking valve. She currently has size 7 trach. Once she is able to tolerate for 48 hours on trach shield,. We will try capping trach. Per discussion with general surgery, no plan to further downsize trach. If she does well in next week, decannulate No further emesis. No evidence of ileus. Antibiotics per ID Follow cultures Continue hemodialysis. Follow renal recommendations. DVT GI prophylaxis Nutritional support Updated 04/09 We will do daily trach shield trials as tolerated. Tolerating it well so far. We will continue with speaking valve. She currently has size 7 trach. Once she is able to tolerate for 48 hours on trach shield,. We will try capping trach. Per discussion with general surgery, no plan to further downsize trach. If she does well in next week, decannulate No further emesis. No evidence of ileus. Antibiotics per ID Follow cultures Continue hemodialysis. Follow renal recommendations. DVT GI prophylaxis Nutritional support Updated 04/08 We will do daily trach shield trials as tolerated. We will do ABGs if there is paradoxical breathing during the trial. Patient had periods of emesis today. Will obtain KUB to rule out any ileus. Antibiotics per ID Follow cultures Continue hemodialysis. Follow renal recommendations. DVT GI prophylaxis Nutritional support Updated 04/07 Patient tolerated pressure support for 11 hours yesterday. We will initiate trach shield trial today. Antibiotics per ID Follow cultures Continue hemodialysis. Follow renal recommendations. DVT GI prophylaxis Nutritional support Updated 04/06 Antibiotics per ID Follow cultures Continue current vent settings Pressure support as tolerated once hemodialysis has been completed DVT GI prophylaxis Nutritional support Updated 04/05 cont vent support setting reviewed decrease sedation weaning as tolerated need high ps during weaning hd per nephro M-W-F Antibiotics per ID, actinobacter in sputum. elevate hob hep sq pepcid for prophylaxis discussed w rn Updated 04/04 cont vent support setting reviewed decrease sedation weaning as tolerated hd per nephro Antibiotics per ID, actinobacter in sputum. Cultures so far negative elevate hob hep sq pepcid for prophylaxis discussed w rn Updated 04/03 Patient currently undergoing hemodialysis, on assist control ventilation We have been unable to sedate patient and perform spontaneous breathing trials throughout the day with pressure support Antibiotics per ID, actinobacter in sputum. Cultures so far negative We will continue current support Hemodialysis per nephrology EMILY POSADA MD Apr 11, 2021 09:38
[2021-04-11] MEDS: FAMOTIDINE 20 MG/2 ML VIAL IVP SCH (09:58)
[2021-04-11] MEDS: NYSTATIN TOPICAL POWDER 15GM BOTTLE. TP SCH ×2 (10:00→21:00)
[2021-04-11] MEDS: INSULIN GLARGINE SYRINGE. SQ SCH ×2 (10:09→21:02)
--- NOTE | 2021-04-11 10:23 | PDOC ---
[facility] PROGRESS NOTE Date of Service DOS: DATE: 04/11/21 TIME: : Chief Complaint Chief Complaint COVID-19 respiratory failure DKA Hypotension Nausea Vomiting Combined metabolic and respiratory acidosis Acute electrolyte derangementhyponatremia, hypochloremia due to volume depletion Hyperglycemia BOB due to ATN, requiring dialysis Erythrocytosis Candiduria Sacral decubitus ulcer S/P Trach on (03/17/21) Trach cultures positive for [place] albicans and now acinebacter ursungi History of Present Illness History of Present Illness 04/11/2021 Patient seen and examined in the ICU She remains quite confused currently sedated Chart reviewed Discussed with RN Had some nausea vomiting last night Pulled out her PEG yesterday Currently on fentanyl and Precedex IV Zyvox hanging 04/10/2021 Patient seen and examined in the ICU She is pleasantly confused Has a trach shield in place Discussed with RN Chart reviewed We are adding in some as needed Ativan and scheduled Prozac Ms Borges is a 46 year old female who presented with nausea/vomiting since 7 AM 02/06/2021 in the morning. Patient stated that her recently tested positive for Covid. She states that he "coughed in my face because he thought it was funny." She reports subjective fevers and chills and nausea/vomiting. Denies sore throat, cough, shortness of breath. No chest pain. Does have some upper abdominal discomfort after vomiting, that she attributes to muscular strain. She was not vaccinated for Covid. 02/08: No acute events overnight. Patient seen and examined bedside and resting comfortably. Continues to complain of nausea not able to tolerate any diet at this time. Saturating 98% on room air. Patient's chart, labs, images were reviewed and discussed with RN 02/09: Afebrile, currently breathing on room air. Still with complaints of nausea and vomiting x3 today. States that she has history of similar symptoms that have been mildly improved with IV Dilaudid. 02/10: Patient febrile today with T-max 102.2 F. She still admits to nausea, denies any further vomiting. We will continue to provide supportive care and monitor for any recurrent fevers overnight. Patient continues to improve may discharge tomorrow to continue self-isolation. 02/11: Febrile overnight, T-max 102.3 F. She did become hypoxic overnight, currently breathing on 4 L nasal cannula. Also admits to associated vomiting or diarrhea overnight. Discussed with RN, will initiate remdesivir and closely monitor LFTs. IV Decadron, and prophylactic antibiotics. 02/12: Low-grade fever overnight, T-max 99.7. Currently breathing on room air. Will discontinue remdesivir, steroids, and antibiotics; will observe overnight. Still with complaints of vomiting x1 and diarrhea. We will continue to provide supportive care and hope to discharge in the next day or so. 02/13: Afebrile. Still complains of intermittent diarrhea. At the time of my evaluation she was breathing on 6 L nasal cannula; this is somewhat misleading as patient states that she did not feel short of breath but was placed on 6 L by nursing staff overnight. 02/14: Afebrile, currently breathing on 8 L nasal cannula. There has been some misleading documentation, chart oxygen this patient is requiring. Discussed with RN, will resume remdesivir to complete total of 5 days. Continue to monitor LFTs. Will add steroids, Rocephin, and azithromycin. 02/15: Afebrile. Became much more hypoxic overnight, requiring BiPAP. At the time of my evaluation she is still breathing on BiPAP. Consultation was placed to pulmonology. Had discussion with Dr. Myrick about initiating Tocilizumab 02/16: No acute events overnight. Patient becoming more hypoxic saturating 94% and requiring BiPAP. Patient will be transferred to the ICU at this time. For worsening clinical status. Discussed with pulmonary. Patient's chart, labs, im ages were reviewed and discussed with RN 02/17: Transferred to ICU yesterday afternoon. Seen and examined at bedside she remains on 100% FiO2 on BiPAP. Respirations do appear somewhat labored. Suspect intubation may be impending. We will closely monitor. Increase lisinopril to 20 today. 02/18: Patient required intubation yesterday afternoon. Saw and examined this morning. She is intubated and sedated. Increase insulin today. Covid protocol ordered. Wean as tolerated. Plan of care discussed with bedside nurse. 02/19: Bedside. She remains intubated and sedated. Continue Covid protocol. Wean oxygen sedation as tolerated. Pulmonary following. Plan of care discussed with bedside RN. 02/20: Patient seen and examined at bedside. She remains intubated and sedated. No major clinical changes. Continue current treatment. Pulmonary following. Plan of care discussed with bedside RN. 02/21: Patient seen and examined at bedside. Remains intubated and sedated date and admission clinical changes. Increase free water flushes today due to hypernatremia. Plan of care discussed with bedside nurse. 02/22: Patient seen and examined at bedside. O2 requirement actually improving, although remains intubated. Possible SBT in the coming days. Hypernatremia improving. Plan of care discussed bedside RN. 02/23: Patient remains in ICU on ventilator with FiO2 100%, PEEP 7. Repeat chest x-ray yesterday showed diffuse bilateral pulmonary opacities with no interval improvement. Will discontinue Rocephin and initiate Zosyn. We will continue IV steroids for a full 10-day course 02/24: Afebrile. On vent with FiO2 40%, PEEP 6. Her Coreg has been held due to persistent bradycardia. No documented history of systolic heart failure or previous echocardiogram. Will need to obtain echocardiogram prior to discharge. Continue IV steroids and antibiotics. 02/25: Afebrile. Remains ventilated with FiO2 45%, PEEP 6. Chest x-ray today showed slight improvement of the pulmonary infiltrates, no pneumothorax. Completed 10-day course of IV Decadron. Will initiate slow Solu-Medrol taper. Continue IV Zosyn. Continue supportive care. 02/26: Afebrile. On vent with FiO2 45%, PEEP 6. Completed 10 days of IV Decadron. Will continue IV Zosyn. Continue supportive care. Critical care time 30 minutes spent reviewing charts, reviewing imaging, reviewing labs, discussion with RN. 02/27: Afebrile. On vent with FiO2 45%, PEEP 6. Completed 10 days of steroids and completed remdesivir. Continue with IV Zosyn. CPAP trial yesterday. Continue NG tube and supportive care. 02/28:. Patient remains on vent with FiO2 40%, PEEP 5. Afebrile. Completed steroids and remdesivir. Some noted hypoglycemia overnight, will de-escalate basal insulin. Continue IV Zosyn. Ventilator management per pulmonology. Continue NG tube and supportive care. 03/01: On vent with FiO2 40%, PEEP 5. Afebrile. Completed steroids and remdesivir. Blood glucose well controlled. Continue empiric antibiotics with Zosyn. Ventilator management per pulmonology. Continue NG tube and supportive care. 03/02: No acute events overnight. Patient hypotensive the morning due to oversedation. Will wean off sedation and keep antihypertensive medications on board. Currently saturating 100% on vent settings of 18/450/40/5. Will attempt spontaneous breathing trial today to see how patient does. 03/03: No acute events overnight. Patient saturating 98% on vent settings of 18/450/40/5. Will defer spontaneous breathing trials to pulmonary at this time. Patient's chart, labs, images were reviewed and discussed with RN 8: No acute events overnight. Patient saturating 9 9% on vent settings of 18/450/30/5. Patient currently is unable to tolerate weaning. Per pulmonary. Patient's chart, labs, images were reviewed and discussed with RN 8: No acute events overnight. Patient is saturating 97% on vent settings of 18/450/55/5. Her FiO2 needs to be increased due to abnormal ABG with 7.3 /24. Patient's chart, labs, images were reviewed and discussed with RN 8: No acute events overnight. Patient saturating 94% on vent settings of 18/450/55/5. Chest x-ray showing increase in pulmonary infiltrates. Wound care is consulted for decubitus ulcer patient's chart, labs, images were reviewed and discussed with RN 8: No acute events overnight. Patient saturating 94% on vent settings of 20/450/70/8. Patient now heading into renal failure with her creatinine bumped up from 1.5-4.2. Decreased urine output. Plan for hemodialysis today and temporary catheter placement and nephrology is consulted. 03/08: No acute events overnight. Patient did have a nausea vomiting episode and tube feeds were held. KUB repeat shows NG tube still in the stomach. Will resume tube feeds at trickle and advance to goal today. Will start hemodialysis soon. 03/09: Seen on vent 20/450/60%/8. ABG 7.2 WBC 11.4, Hb 7.4, platelets 188, NA 131, K4.9, BUN 48, CR 51, glucose 199, phosphorus 7.9, mag 2.2, AST 265 ALT 219, albumin 1.1. Chest radiograph appears unchanged from prior. Dialysis x1 today 03/10: Afebrile. Seen on vent, 20/450/60/7 with ABG 7.3 . Tolerated dialysis well on 03/09. LFTs similar. 03/11: Afebrile. Seen on vent, sedated. Still requiring Levophed for BP support. WBC 16.7, Hb 8.1, NA 130, ABG 7.3 on 55% FiO2 PEEP 6. On Zosyn and Zyvox Diflucan. Dialysis today 03/12: Afebrile. Still requiring Levophed for BP support sedated with Versed febrile Precedex. WBC 16.1, Hb 8.5, platelets 185, NA 133. Trach plan tentatively 03/17. O2 saturations 93% on 50% FiO2 PEEP 6. ABG 7. On Zosyn and Zyvox Diflucan. 03/13: Afebrile. Still on Levophed for BP support lightly sedated. 7. on 45% FiO2. Plan for dialysis today. On Zosyn and Zyvox Diflucan. More swollen today. 03/14: Afebrile. Weaning down off Levophed. WBC 14.9 NA 132. O2 saturations 92% on 45% FiO2 PEEP 5. Afebrile. O2 saturations 91% on FiO2 45% PEEP 6. Continued on Zosyn and Zyvox Diflucan. Tentative trach planned 03/17/2021 CC time 31 minutes 03/16/21: Patient seen and examined in ICU. Periorbital as well as upper and lower extremity edema noted. OG feed running at 30cc/hr. Still on vent on pressure control with a rate of 24 with 45% FiO2. Patient has rectal bag. Currently she has 98% O2 sat. Currently sedated with Dexmedetomidine, Propofol, Versed, and Fentanyl. Discussed with RN. Chart reviewed. 03/17/21: Patient was seen and examined in the ICU today. Periorbital edema as well as abdominal and mons pubis edema was noted. Patient still on vent on pressure control with Fi02 of 45% plus 6 PEEP. Patient had rectal bag. Currently sedated on Dexmedetomidine, Propofol, Versed, and Fentanyl. Discussed with RN. Chart reviewed. 03/18/21: Patient seen and examined in ICU. On vent via trach that was placed yesterday. Vent settings are Pressure Control of 40 with FiO2 of 45% and 6 PEEP. Trach clean and dry. Orbital swelling still present. Pupils are sluggish. Patient on TPN running at 30cc/hr. Kern to bedside and rectal bag in place. Current O2 sat at 94%. Sedated on Dexmedetomidine, Propofol, Versed, and Fentanyl. Discussed with RN. Chart reviewed. 03/19/21: Patient was seen and examined in the ICU today. Currently on vent via trach on pressure control of 42, rate of 24, FiO2 of 45%, and 6 PEEP. O2 sat is at 97% while patient is being examined. Trach is clean and dry. PICC line is in place on right arm. Periorbital swelling has decreased slightly since examined yesterday. Patient is sedated on Dexmedetomidine, Propofol, Versed, and Fentanyl. Discussed with RN. Chart reviewed. 03/20/21: Patient seen and examined in the ICU. Periorbital edema is slightly decreased since yesterday. O2 sat while being examined was 93%. NG tube in place and running at 30cc/hr. Patient on vent via trach on pressure control of 40 with FiO2 of 45 and rate of 24. Sedated on Dexmedetomidine, Propofol, Versed, and Fe ntanyl. PICC line in place. Kern to bedside. Rectal bag present. Discussed with RN. Chart reviewed. 03/21/21: Patient was seen and examined in the ICU today. She was semi-sedated.. She was on Dexmedetomidine and Fentanyl. We are holding the Propofol. Her eyes were periodically open but she was not making meaningful eye contact or tracking. On vent via trach with pressure control of 40 and FiO2 at 45. Rate was 24. PEEP was 5. Trach was clean and dry. While being examined, her O2 sat was 94%. Rectal bag and Kern to bedside in place. NG tube in place and feeding at 30cc/hr. IV fluids still running. Levophed has been stopped. Discussed with RN. Chart reviewed. 03/22/21: Patient was seen and examined in the ICU. She was semi-sedated on Propofol and Dexmedetomidine. Her eyes were open but she did not make meaningful eye contact. Her blood pressure was elevated (198/102) while being examined and she had just been given hydralazine to lower it. There are plans to place a PEG tube tomorrow. Currently on vent via trach on pressure control of 40 with FiO2 of 45%, 5 PEEP, and a rate of 24. Current O2 sat is 98%. She is feeding through an NG tube at 30cc/hr. Rectal bag and Kern to bedside present. SCDs on patient for DVT prophylaxis. She did not do her daily dialysis today but the plan is to start back on that tomorrow. Discussed with RN. Chart reviewed. 03/23/2021: Patient remains in ICU on ventilator. FiO2 40%, PEEP 5. Trach cultures positive for [place] albicans and acinebacter ursungi. We will continue treatment with IV antibiotics and micafungin, per ID. HD per nephrology. Plans for PEG tube placement today. 30 minutes critical care time was spent reviewing charts, reviewing labs, reviewing imaging, discussion with RN. 03/24/2021: Afebrile. On vent with FiO2 45%, PEEP 5. Had attempted PEG placement per GI yesterday, but unable to locate safe path for PEG; will consider surgical opinion. Once PEG is in place she should be stable for LTAC transfer when accepted. Continue antibiotics, per ID. 30 minutes critical care time was spent reviewing charts, reviewing labs, reviewing imaging, discussion with RN. 03/25/2021: Febrile overnight with T-max 101.5 F. On vent with FiO2 45%, PEEP 5. Surgery has been consulted with tentative plans for laparoscopic versus open gastrostomy placement tomorrow. Trach cultures positive for [place] albicans and now acinebacter ursungi; will continue antibiotic management, per ID. Hemodialysis, per nephrology. Patient needing LTAC placement, but currently without benefits. cement storage worker following for discharge planning. Critical care time 30 minutes spent reviewing charts, reviewing labs, reviewing imaging, discussion with RN. 03/26/2021: Febrile today with T-max 100.5 F. Awake on vent with FiO2 45%, PEEP 5. When I ask if she remembers any she nods. G-tube placement scheduled for tomorrow, per general surgery. Chest x-ray today showed slight interval increase in diffuse infiltrate. Continue antibiotic management, per ID. Hemodialysis per nephrology. Reportedly did not tolerate CPAP trial this morning. cement storage worker following for LTAC placement. Critical care time 30 minutes spent reviewing charts, reviewing labs, reviewing imaging, discussion with RN. 03/27/2021: On vent with FiO2 45%, PEEP 5. Afebrile today. Continue treatment of acute renal failure requiring HD, per nephrology. Monitor kidney function for recovery. G-tube placement scheduled for today, per general surgery. Likely LTAC placement soon, but this is been a difficult as she is self-pay without benefits; social media editor following. Critical care time 30 minutes spent reviewing charts, reviewing labs, reviewing imaging, discussion with RN. 03/28/2021: Afebrile. On vent with FiO2 40%, PEEP 5. Had laparoscopic gastrostomy tube placed yesterday, per general surgery. Continue treatment of acute renal failure requiring HD, per nephrology. Continue IV antibiotics, per ID. Likely LTAC placement soon, but this is been a difficult as she is self-pay without benefits; social media editor following. Critical care time 30 minutes spent reviewing charts, reviewing labs, reviewing imaging, discussion with RN. 03/29/2021: Afebrile. On vent with FiO2 45%, PEEP 5. S/P laparoscopic gastrostomy tube; tube feeds running. HD, per nephrology. Continue meropenem, per ID. Anticipate LTAC placement soon now that PEG has being placed; social media editor helping in these regards. Critical care time 30 minutes spent reviewing charts, reviewing labs, reviewing imaging, discussion with RN. 03/30 No major events or clinical changes overnight. Patient evaluated at bedside this morning on trach and G-tube. Tolerating these well. Has been working on insurance for patient for placement as she will need long-term care. Guarded prognosis. Plan of care discussed with bedside nurse. 03/31 No major clinical changes. Remains trached. Sedated. Continue current plan. 04/01 No changes. Patient resting in bed when evaluated sedated. is supposed to be working on insurance for placement for the patient. Otherwise no changes. 04/02 Patient febrile overnight, daptomycin added this morning per infectious disease. Otherwise no major clinical changes. Awaiting insurance. Infectious disease, pulmonary and renal following. Plan of care discussed with bedside RN. 04/03 Patient undergoing dialysis today. Evaluated at bedside this morning. otherwise continue current plan. supposed working on insurance. 04/04 No major overnight changes. Continue current plan. 04/05 Patient notably more movement this morning eyes open resting in bed otherwise no major changes. Continue current plan. Insurance pending. 04/06 Patient notably more movement this morning eyes open resting in bed current plan. Insurance pending. Continue daptomycin, renal dosing April 02 F/U Blood culture UA urine culture C. diff PCR negative 32 min cc time 04/07 Patient notably more movement this morning eyes open resting in bed current plan. Insurance pending. Continue daptomycin, renal dosing April 02 F/U Blood culture UA urine culture C. diff PCR negative Abnormal chest x-ray consistent with COVID-19 viral pneumonia. Diabetic ketoacidosis--resolved obesity contributing to hypoxia as well. BOB . hemodialysis started 03/07 DVT GI prophylaxis Nutritional support 34 min cc time 04/08 Patient notably more movement this morning eyes open resting in bed current plan. Insurance pending. Continue daptomycin, renal dosing April 02 F/U Blood culture UA urine culture C. diff PCR negative s/p lap G-tube 03/27 Abnormal chest x-ray consistent with COVID-19 viral pneumonia. Diabetic ketoacidosis--resolved obesity contributing to hypoxia as well. BOB . hemodialysis started 03/07 DVT GI prophylaxis Nutritional support Right PICC line February 14 out; left PICC line 04/07/2021 Right IJ HDC clean March 07 32 min cc time 04/09 non Oliguric for past 112 -2 weeks , good response to IV NS bolus .requiring dialysis., currently on MWF schedule, tolerating trach shield well.using her speaking valve./ resting in bed current / states she feels better Start iv Zyvox Cont Meropenem DC daptomycin post PICC line exchange aspiration precautions C. diff PCR negative F/U Blood culture UA urine culture s/p lap G-tube 03/27 Abnormal chest x-ray consistent with COVID-19 viral pneumonia. Diabetic ketoacidosis--resolved obesity contributing to hypoxia as well. BOB . hemodialysis started 03/07 DVT GI prophylaxis Nutritional support Right PICC line February 14 out; left PICC line 04/07/2021 Right IJ HDC clean March 07 34 min cc time Vitals/I&O Vitals/I&O: Vital Signs Date Time Temp Pulse Resp B/P (MAP) Pulse Ox O2 Delivery O2 Flow Rate FiO2 04/11/21 08:20 100 Tracheal Collar 8.0 04/11/21 06:00 98 19 132/69 04/11/21 05:00 98.5 98.5 I & O 04/10/21 04/10/21 04/11/21 15:00 23:00 07:00 Intake Total 300 ml 935 ml 217.3 ml Output Total 325 ml 155 ml 195 ml Balance -25 ml 780 ml 22.3 ml Physical Exam Physical Exam: GENERAL: Intubated HEENT: Normocephalic, atraumatic. Anicteric. Slight bilateral periorbital arlet ma. Latter improving Neck right IJ HDC clean Trach + LUNGS: Rhonchi. HEART: S1, S2. No murmurs. ABDOMEN: Obese, soft. Bowel sounds present. Nontender, nondistended. PEG tube in place GENITOURINARY: Kern and fecal tube in place. EXTREMITIES: Edema present no cyanosis. CENTRAL NERVOUS SYSTEM: Intubated. PSYCHIATRIC: Unable to assess. Derm has pressure wounds wound pictures noted in chart. Generalized rash, Right PICC line February 14 removed; left PICC line 04/07/2021 Right IJ HDC clean March 07 General: No acute distress, Other (sedated) Heart: Regular rate, Normal S1, Normal S2 Lungs: Clear Abdomen: Normal bowel sounds, Soft, Other (PEG has been pulled but she still has the button in place) Extremities: No cyanosis, Other (ANASARCA) Skin: No rashes, No significant lesion Labs Labs: Laboratory Tests Test 04/10/21 20:47 04/11/21 00:01 04/11/21 06:03 Glucose (Fingerstick) 207 mg/dL (70-99) 230 mg/dL (70-99) 234 mg/dL (70-99) Assessment and Plan Assessmemt and Plan Problems Medical Problems: (1) Ketoacidosis Status: Acute COVID-19 respiratory failure DKA Hypotension Nausea Vomiting Combined metabolic and respiratory acidosis Acute electrolyte derangementhyponatremia, hypochloremia due to volume depletion Hyperglycemia BOB due to ATN, requiring dialysis Erythrocytosis Candiduria Sacral decubitus ulcer S/P Trach on (03/17/21) Trach cultures positive for [place] albicans and now acinebacter ursungi Plan Await GI input to see if we can replace the PEG We went ahead and put a Kern into the old PEG site for now We will try to transfer out of ICU to the medical floor Continue Precedex and fentanyl with as needed Ativan Schedule Prozac 20 a day Cardiac monitoring Home meds Trend labs DVT prophylaxis Full code Continue other treatments Appreciate subspecialist input Prognosis guarded but improved a lot over the last few days Comment Review of Relevant I have reviewed the following items mazin (where applicable) has been applied. Justifications for Admission Other Justification DIANELYS BLACKMON III DO Apr 11, 2021 10:23
--- NOTE | 2021-04-11 10:31 | PDOC ---
Infectious Disease Note Subjective: Subjective Patient awake alert on vent Patient pulled out her PEG tube yesterday Trying to pull out her trach Vital Signs: Vital Signs Vital Signs Date Time Temp Pulse Resp B/P (MAP) Pulse Ox O2 Delivery O2 Flow Rate FiO2 04/11/21 08:20 100 Tracheal Collar 8.0 04/11/21 06:00 98 19 132/69 04/11/21 05:00 98.5 98.5 Physical Exam: PHYSICAL EXAM GENERAL: Intubated HEENT: Normocephalic, atraumatic. Anicteric. Slight bilateral periorbital edema. Latter improving Neck right IJ HDC clean Trach + LUNGS: Rhonchi. HEART: S1, S2. No murmurs. ABDOMEN: Obese, soft. Bowel sounds present. Nontender, nondistended. PEG tube in place GENITOURINARY: Kern and fecal tube in place. EXTREMITIES: Edema present no cyanosis. CENTRAL NERVOUS SYSTEM: Intubated. PSYCHIATRIC: Unable to assess. Derm has pressure wounds wound pictures noted in chart. Generalized rash, Right PICC line February 14 removed; left PICC line 04/07/2021 Right IJ HDC clean March 07 Medications: Inpatient Meds: Medications reviewed. Labs: Lab Laboratory Tests Test 04/10/21 20:47 04/11/21 00:01 04/11/21 06:03 Glucose (Fingerstick) 207 mg/dL (70-99) 230 mg/dL (70-99) 234 mg/dL (70-99) Micro GRAM STAIN EVALUATION Final Final This specimen is of good quality and is acceptable for routine bacterial culture. Culture results to follow. NO ORGANISMS SEEN. SQUAMOUS EPI CELL:RARE PMN (WBCs):MODERATE Unless otherwise specified, Testing Performed by: [address] [address] For Inquires, the Physician may contact the Microbiology department at [phone] RESPIRATORY CULTURE Final Final MODERATE GRAM NEGATIVE RODS on 03/18/21 at 1126 FINAL ID= [ACINETOBACTER URSINGII.] ACINETOBACTER URSINGII. ANTIMICROBIAL SUSCEPTIBILITY Final Comment NEG SAGE 56 ACINETOBACTER URSINGII. ANTIBIOTIC RESULT INTERPRETATION AMPICILLIN/SULBACTAM <=4/2 S AMIKACIN <=16 S CEFTRIAXONE 2 S CEFTAZIDIME 16 I CEFOTAXIME 16 I CIPROFLOXACIN <=0.25 S CEFEPIME 4 S GENTAMICIN <=2 S LEVOFLOXACIN <=0.5 S RUN DATE: 03/19/21 [facility] *LIVE* PAGE 2 RUN TIME: 1120 Specimen Inquiry SPEC: [id number] PATIENT: ARIADNA BANKS [id number] (Continued) Procedure Result CONTINUED ON NEXT PAGE RUN DATE: 03/19/21 [facility] *LIVE* PAGE 3 RUN TIME: 1120 Specimen Inquiry SPEC: [id number] PATIENT: ARIADNA BANKS [id number] (Continued) Procedure Result ANTIMICROBIAL SUSCEPTIBILITY Final (continued) MINOCYCLINE <=4 S MEROPENEM <=1 S TRIMETHOPRIM/SULFAMETHOXAZOLE <=0.5/9.5 S TOBRAMYCIN <=2 S Unless otherwise specified, Testing Performed by: [facility] [address] [place] [address] For Inquires, the Physician may contact the Microbiology department at [phone] Culture negative Objective: Assessment: 1. Febrile illness. 2. COVID-19 infection present on date of admission, 02/06/2021. Status post remdesivir, dexamethasone. 3. Acute hypoxic respiratory failure, status post intubation. S/P Trach on 03/17 Trach cultures positive for Rock albicans and now acinebacter ursungi 4. Diabetes. 5. Diarrhea. 6. Hypertension. 7. Hyperlipidemia. 8. Anemia. 9. BOB on HD 10.UC rock albican, ua neg 11. Nausea and vomiting Possible aspiration Plan: Plan of Care DC Zyvox now on fluoxetine Off meropenem has been on since March 18 Maintain aspiration precaution Status post PICC line exchange Monitor lab and cultures C. 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 Prognosis poor If fever recurs may need HD catheter removal at bedside D/W KAITLYNN CURIEL MD Apr 11, 2021 10:31
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
--- NOTE | 2021-04-11 18:20 | NUR ---
Marissa is very restless, trying to turn herself onto her stomach to slide out of bed. Explained to and patient that it is very unsafe for her to attempt to get out of bed without any assistance, also explained that she has not been out of bed since 02/05 and would need extensive assistance and devices to make out of bed possible. She nodded in agreement and her Brian verbally agreed. Report given to manufacturing shift supervisor and expressed the need for closer monitoring. Marissa has also attempted to pull out lines and tracheostomy twice today. Mitts were placed and Marissa removed them with her teeth, told her and that if she attempted to continue to pull out devices she would be in restraints for safety. They both agreed.
--- NOTE | 2021-04-11 19:37 | NUR ---
upon leaving unit. asked if I could give Marissa a sleeping pill since she did not sleep well last night. I explained that sleeping pills can make the situation worse. That increasing Precedex or using Haldol/ Ativan may be better. He requested that I call him before I give her any additional medication. I explained that if Marissa became agitated and required additional medications. That medications would be given then he would be called. That my main goal was to keep Marissa safe. He states that he understood.
[2021-04-11] MEDS: ATORVASTATIN CALCIUM 40 MG TABLET. PO SCH (20:40)
[2021-04-12] VITALS (24 sets, daily range): BP systolic 106–199; BP diastolic 57–98
[2021-04-12] MEDS: DEXMEDETOMIDINE 400 MCG in IV NORMAL SALINE 100ML 96 ML IV PRN ×5 (01:05→21:31)
[2021-04-12] MEDS: INSULIN LISPRO 300 UNITS/3 ML VIAL. SQ SCH ×4 (05:08→23:47)
[2021-04-12] MEDS: HEPARIN for SUB-Q USE 5,000 UNIT/ML VIAL. SQ SCH ×3 (05:30→21:34)
--- NOTE | 2021-04-12 08:58 | PDOC ---
SURGICAL PROGRESS NOTE DATE: 04/12/21 TIME: 08:57 Subjective awake, pulled g tube out tuesday---no tube was replaced since Vital Signs Vital Signs Date Time Temp Pulse Resp B/P (MAP) Pulse Ox O2 Delivery O2 Flow Rate FiO2 04/12/21 08:38 100 Tracheal Collar 8.0 04/12/21 06:00 88 22 152/78 04/12/21 04:00 99.0 99.0 I&O Intake and Output 04/12/21 07:00 Intake Total 271 ml Output Total 895 ml Balance -624 ml IV Total 271 ml Output Urine Total 895 ml General: Cooperative Abdomen: Soft, Other (g tube bumper removed ) Labs Laboratory Tests Test 04/10/21 20:47 04/11/21 00:01 04/11/21 06:03 04/11/21 18:08 Glucose (Fingerstick) 207 mg/dL (70-99) 230 mg/dL (70-99) 234 mg/dL (70-99) 305 mg/dL (70-99) Test 04/11/21 23:31 04/12/21 05:07 Glucose (Fingerstick) 291 mg/dL (70-99) 350 mg/dL (70-99) Laboratory Tests Test 04/11/21 18:08 04/11/21 23:31 04/12/21 05:07 Glucose (Fingerstick) 305 mg/dL (70-99) 291 mg/dL (70-99) 350 mg/dL (70-99) Problem List Problems Medical Problems: (1) Ketoacidosis Status: Acute Assessment/Plan will ask IR if can be replaced, however due to length of time that may not be an option---may require return to OR, will review with Dr Mills tuesday Justicifation of Admission Dx: Justifications for Admission: Justification of Admission Dx: N/A RACHEL CADE APRN Apr 12, 2021 08:58
--- NOTE | 2021-04-12 08:58 | PDOC ---
Infectious Disease Note Subjective: Subjective Patient awake alert on vent Requesting for apple juice Remains afebrile for the last 24 hours at bedside Vital Signs: Vital Signs Vital Signs Date Time Temp Pulse Resp B/P (MAP) Pulse Ox O2 Delivery O2 Flow Rate FiO2 04/12/21 08:38 100 Tracheal Collar 8.0 04/12/21 06:00 88 22 152/78 04/12/21 04:00 99.0 99.0 Physical Exam: PHYSICAL EXAM GENERAL: Intubated HEENT: Normocephalic, atraumatic. Anicteric. Slight bilateral periorbital edema. Latter improving Neck right IJ HDC clean Trach + LUNGS: Rhonchi. HEART: S1, S2. No murmurs. ABDOMEN: Obese, soft. Bowel sounds present. Nontender, nondistended. PEG tube in place GENITOURINARY: Kern and fecal tube in place. EXTREMITIES: Edema present no cyanosis. CENTRAL NERVOUS SYSTEM: Intubated. PSYCHIATRIC: Unable to assess. Derm has pressure wounds wound pictures noted in chart. Generalized rash, Right PICC line February 14 removed; left PICC line 04/07/2021 Right IJ HDC clean March 07 Medications: Inpatient Meds: Medications reviewed. Labs: Lab Laboratory Tests Test 04/11/21 18:08 04/11/21 23:31 04/12/21 05:07 Glucose (Fingerstick) 305 mg/dL (70-99) 291 mg/dL (70-99) 350 mg/dL (70-99) Micro GRAM STAIN EVALUATION Final Final This specimen is of good quality and is acceptable for routine bacterial culture. Culture results to follow. NO ORGANISMS SEEN. SQUAMOUS EPI CELL:RARE PMN (WBCs):MODERATE Unless otherwise specified, Testing Performed by: [address] [address] For Inquires, the Physician may contact the Microbiology department at [phone] RESPIRATORY CULTURE Final Final MODERATE GRAM NEGATIVE RODS on 03/18/21 at 1125 FINAL ID= [ACINETOBACTER URSINGII.] ACINETOBACTER URSINGII. ANTIMICROBIAL SUSCEPTIBILITY Final Comment NEG SAGE 56 ACINETOBACTER URSINGII. ANTIBIOTIC RESULT INTERPRETATION AMPICILLIN/SULBACTAM <=4/2 S AMIKACIN <=16 S CEFTRIAXONE 2 S CEFTAZIDIME 16 I CEFOTAXIME 16 I CIPROFLOXACIN <=0.25 S CEFEPIME 4 S GENTAMICIN <=2 S LEVOFLOXACIN <=0.5 S RUN DATE: 03/19/21 [facility] *LIVE* PAGE 2 RUN TIME: 1120 Specimen Inquiry SPEC: [id number] PATIENT: ARIADNA BANKS [id number] (Continued) Procedure Result CONTINUED ON NEXT PAGE RUN DATE: 03/19/21 [facility] *LIVE* PAGE 3 RUN TIME: 1120 Specimen Inquiry SPEC: [id number] PATIENT: ARIADNA BANKS [id number] (Continued) Procedure Result ANTIMICROBIAL SUSCEPTIBILITY Final (continued) MINOCYCLINE <=4 S MEROPENEM <=1 S TRIMETHOPRIM/SULFAMETHOXAZOLE <=0.5/9.5 S TOBRAMYCIN <=2 S Unless otherwise specified, Testing Performed by: [address] [address] For Inquires, the Physician may contact the Microbiology department at [phone] Culture negative Objective: Assessment: 1. Febrile illness. Resolved 2. COVID-19 infection present on date of admission, 02/06/2021. Status post remdesivir, dexamethasone. 3. Acute hypoxic respiratory failure, status post intubation. S/P Trach on 03/17 Trach cultures positive for Rock albicans and now acinebacter ursungi 4. Diabetes. 5. Diarrhea. 6. Hypertension. 7. Hyperlipidemia. 8. Anemia. 9. BOB on HD 10.UC rock albican, ua neg 11. Nausea and vomiting 12. Leukocytosis likely reactive as patient had nausea and vomiting has pulled out PEG tube Plan: Plan of Care Monitor off antibiotics Leukocytosis appears to be reactive Remains afebrile in the last 24 hours Off Zyvox,on fluoxetine Off meropenem has been on since March 18 Maintain aspiration precautions Status post PICC line exchange Monitor lab and cultures C. 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 d/w at bedside KAITLYNN CRAIG MD Apr 12, 2021 08:58
[2021-04-12] MEDS: DOCUSATE 100 MG/10 ML SOLUTION. PO SCH ×2 (09:00→19:33)
[2021-04-12] MEDS: MULTIVITAMINS,THERAPEUTIC 5 ML ORAL LIQUID. PEG SCH (09:00)
[2021-04-12] MEDS: NYSTATIN TOPICAL POWDER 15GM BOTTLE. TP SCH ×2 (10:04→21:00)
[2021-04-12] MEDS: FAMOTIDINE 20 MG/2 ML VIAL IVP SCH (10:04)
[2021-04-12] MEDS: INSULIN GLARGINE SYRINGE. SQ SCH ×2 (10:04→21:35)
--- NOTE | 2021-04-12 10:23 | PDOC ---
PULMONARY PROGRESS NOTES DATE: 04/12/21 TIME: 10:21 Subjective Patient is tolerating trach shield well. She is using her speaking valve. Vitals Vital Signs Date Time Temp Pulse Resp B/P (MAP) Pulse Ox O2 Delivery O2 Flow Rate FiO2 04/12/21 08:38 100 Tracheal Collar 8.0 04/12/21 06:00 88 22 152/78 04/12/21 04:00 99.0 99.0 Lungs: Clear Cardiovascular: S1 Abdomen: Soft, Non-tender Skin: Warm Labs Laboratory Tests Test 04/10/21 20:47 04/11/21 00:01 04/11/21 06:03 04/11/21 18:08 Glucose (Fingerstick) 207 mg/dL (70-99) 230 mg/dL (70-99) 234 mg/dL (70-99) 305 mg/dL (70-99) Test 04/11/21 23:31 04/12/21 05:07 Glucose (Fingerstick) 291 mg/dL (70-99) 350 mg/dL (70-99) Laboratory Tests Test 04/11/21 18:08 04/11/21 23:31 04/12/21 05:07 Glucose (Fingerstick) 305 mg/dL (70-99) 291 mg/dL (70-99) 350 mg/dL (70-99) Medications Active Scripts Medications Dose Route/Sig Max Daily Dose Days Date Category Novolog Flexpen (Insulin Aspart) 100 Unit/1 Ml Insuln.pen 3-7 SQ TIDACHC 02/07/21 Reported Lisinopril 5 Mg Tablet 1 Tab PO DAILY 02/07/21 Reported Lantus Solostar (Insulin Glargine,Hum.rec.anlog) 100 Unit/1 Ml Insuln.pen 5 Unit SQ QHS 04/09/15 Reported Atorvastatin Calcium 40 Mg Tablet 40 Mg PO HS 04/09/15 Reported Impression . IMPRESSION: 1. Acute hypoxic respiratory failure secondary to COVID-19 viral pneumonia/acute lung injury and early acute respiratory distress syndrome. S/P intubation 02/17/21. Status post tracheostomy. 2. Nonsmoker. 3. Abnormal chest x-ray consistent with COVID-19 viral pneumonia. 4. Diabetic ketoacidosis--resolved 5. Underlying obesity contributing to hypoxia as well. 6. BOB . hemodialysis started 8/28 7. Fever, 30 ID 8. Abnormal chest x-ray with diffuse interstitial infiltrates compatible with viral pneumonia 9. [place] in the sputum is a contamination 10. Septic shoc 11. s/p lap G-tube 03/27 12. Delirium Plan . Updated 04/12 24 hr trach shield . Tolerating it well so far. We will continue with speaking valve. She currently has size 7 trach. We will proceed with capping trach in a.m. Per discussion with general surgery, no plan to further downsize trach. If she does well in next week, decannulate No evidence of ileus. Emesis per PCP Antibiotics per ID Follow cultures Continue hemodialysis. Follow renal recommendations. DVT GI prophylaxis Nutritional support Discussed with patient's . Updated 04/11 We will do 24 hr trach shield trials Tolerating it well so far. We will continue with speaking valve. She currently has size 7 trach. Once she is able to tolerate for 48 hours on trach shield,. We will try capping trach. Per discussion with general surgery, no plan to further downsize trach. If she does well in next week, decannulate No evidence of ileus. Emesis per PCP Antibiotics per ID Follow cultures Continue hemodialysis. Follow renal recommendations. DVT GI prophylaxis Nutritional support Updated 04/10 We will do 24 hr trach shield trials Tolerating it well so far. We will continue with speaking valve. She currently has size 7 trach. Once she is able to tolerate for 48 hours on trach shield,. We will try capping trach. Per discussion with general surgery, no plan to further downsize trach. If she does well in next week, decannulate No further emesis. No evidence of ileus. Antibiotics per ID Follow cultures Continue hemodialysis. Follow renal recommendations. DVT GI prophylaxis Nutritional support Updated 04/09 We will do daily trach shield trials as tolerated. Tolerating it well so far. We will continue with speaking valve. She currently has size 7 trach. Once she is able to tolerate for 48 hours on trach shield,. We will try capping trach. Per discussion with general surgery, no plan to further downsize trach. If she does well in next week, decannulate No further emesis. No evidence of ileus. Antibiotics per ID Follow cultures Continue hemodialysis. Follow renal recommendations. DVT GI prophylaxis Nutritional support Updated 04/08 We will do daily trach shield trials as tolerated. We will do ABGs if there is paradoxical breathing during the trial. Patient had periods of emesis today. Will obtain KUB to rule out any ileus. Antibiotics per ID Follow cultures Continue hemodialysis. Follow renal recommendations. DVT GI prophylaxis Nutritional support Updated 04/07 Patient tolerated pressure support for 11 hours yesterday. We will initiate trach shield trial today. Antibiotics per ID Follow cultures Continue hemodialysis. Follow renal recommendations. DVT GI prophylaxis Nutritional support Updated 04/06 Antibiotics per ID Follow cultures Continue current vent settings Pressure support as tolerated once hemodialysis has been completed DVT GI prophylaxis Nutritional support Updated 04/05 cont vent support setting reviewed decrease sedation weaning as tolerated need high ps during weaning hd per nephro M-W-F Antibiotics per ID, actinobacter in sputum. elevate hob hep sq pepcid for prophylaxis discussed w rn Updated 04/04 cont vent support setting reviewed decrease sedation weaning as tolerated hd per nephro Antibiotics per ID, actinobacter in sputum. Cultures so far negative elevate hob hep sq pepcid for prophylaxis discussed w rn Updated 04/03 Patient currently undergoing hemodialysis, on assist control ventilation We have been unable to sedate patient and perform spontaneous breathing trials throughout the day with pressure support Antibiotics per ID, actinobacter in sputum. Cultures so far negative We will continue current support Hemodialysis per nephrology EMILY POSADA MD Apr 12, 2021 10:23
--- NOTE | 2021-04-12 14:13 | PDOC ---
[facility] PROGRESS NOTE Date of Service DOS: DATE: 04/12/21 TIME: 14:11 Chief Complaint Chief Complaint COVID-19 respiratory failure DKA Hypotension Nausea Vomiting Combined metabolic and respiratory acidosis Acute electrolyte derangementhyponatremia, hypochloremia due to volume depletion Hyperglycemia BOB due to ATN, requiring dialysis Erythrocytosis Candiduria Sacral decubitus ulcer S/P Trach on (03/17/21) Trach cultures positive for [place] albicans and now acinebacter ursungi History of Present Illness History of Present Illness 04/12/2021 Patient seen and examined in the ICU Her is present today and seems to be good support for her Chart reviewed Discussed with RN Still sedated with Precedex and fentanyl but awake 04/11/2021 Patient seen and examined in the ICU She remains quite confused currently sedated Chart reviewed Discussed with RN Had some nausea vomiting last night Pulled out her PEG yesterday Currently on fentanyl and Precedex IV Zyvox hanging 04/10/2021 Patient seen and examined in the ICU She is pleasantly confused Has a trach shield in place Discussed with RN Chart reviewed We are adding in some as needed Ativan and scheduled Prozac Ms Borges is a 46 year old female who presented with nausea/vomiting since 7 AM 02/06/2021 in the morning. Patient stated that her recently tested positive for Covid. She states that he "coughed in my face because he thought it was funny." She reports subjective fevers and chills and nausea/vomiting. Denies sore throat, cough, shortness of breath. No chest pain. Does have some upper abdominal discomfort after vomiting, that she attributes to muscular strain. She was not vaccinated for Covid. 02/08: No acute events overnight. Patient seen and examined bedside and resting comfortably. Continues to complain of nausea not able to tolerate any diet at this time. Saturating 98% on room air. Patient's chart, labs, images were reviewed and discussed with RN 02/09: Afebrile, currently breathing on room air. Still with complaints of nausea and vomiting x3 today. States that she has history of similar symptoms that have been mildly improved with IV Dilaudid. 02/10: Patient febrile today with T-max 102.2 F. She still admits to nausea, denies any further vomiting. We will continue to provide supportive care and m onitor for any recurrent fevers overnight. Patient continues to improve may discharge tomorrow to continue self-isolation. 02/11: Febrile overnight, T-max 102.3 F. She did become hypoxic overnight, currently breathing on 4 L nasal cannula. Also admits to associated vomiting or diarrhea overnight. Discussed with RN, will initiate remdesivir and closely monitor LFTs. IV Decadron, and prophylactic antibiotics. 02/12: Low-grade fever overnight, T-max 99.7. Currently breathing on room air. Will discontinue remdesivir, steroids, and antibiotics; will observe overnight. Still with complaints of vomiting x1 and diarrhea. We will continue to provide supportive care and hope to discharge in the next day or so. 02/13: Afebrile. Still complains of intermittent diarrhea. At the time of my evaluation she was breathing on 6 L nasal cannula; this is somewhat misleading as patient states that she did not feel short of breath but was placed on 6 L by nursing staff overnight. 02/14: Afebrile, currently breathing on 8 L nasal cannula. There has been some misleading documentation, chart oxygen this patient is requiring. Discussed with RN, will resume remdesivir to complete total of 5 days. Continue to monitor LFTs. Will add steroids, Rocephin, and azithromycin. 02/15: Afebrile. Became much more hypoxic overnight, requiring BiPAP. At the time of my evaluation she is still breathing on BiPAP. Consultation was placed to pulmonology. Had discussion with Dr. Myrick about initiating Tocilizumab 02/16: No acute events overnight. Patient becoming more hypoxic saturating 94% and requiring BiPAP. Patient will be transferred to the ICU at this time. For worsening clinical status. Discussed with pulmonary. Patient's chart, labs, images were reviewed and discussed with RN 02/17: Transferred to ICU yesterday afternoon. Seen and examined at bedside she remains on 100% FiO2 on BiPAP. Respirations do appear somewhat labored. Suspect intubation may be impending. We will closely monitor. Increase lisinopril to 20 today. 02/18: Patient required intubation yesterday afternoon. Saw and examined this morning. She is intubated and sedated. Increase insulin today. Covid protocol ordered. Wean as tolerated. Plan of care discussed with bedside nurse. 02/19: Bedside. She remains intubated and sedated. Continue Covid protocol. Wean oxygen sedation as tolerated. Pulmonary following. Plan of care discussed with bedside RN. 02/20: Patient seen and examined at bedside. She remains intubated and sedated. No major clinical changes. Continue current treatment. Pulmonary following. Plan of care discussed with bedside RN. 02/21: Patient seen and examined at bedside. Remains intubated and sedated date and admission clinical changes. Increase free water flushes today due to hypernatremia. Plan of care discussed with bedside nurse. 02/22: Patient seen and examined at bedside. O2 requirement actually improving, although remains intubated. Possible SBT in the coming days. Hypernatremia improving. Plan of care discussed bedside RN. 02/23: Patient remains in ICU on ventilator with FiO2 100%, PEEP 7. Repeat chest x-ray yesterday showed diffuse bilateral pulmonary opacities with no interval improvement. Will discontinue Rocephin and initiate Zosyn. We will continue IV steroids for a full 10-day course 02/24: Afebrile. On vent with FiO2 40%, PEEP 6. Her Coreg has been held due to persistent bradycardia. No documented history of systolic heart failure or previous echocardiogram. Will need to obtain echocardiogram prior to discharge. Continue IV steroids and antibiotics. 02/25: Afebrile. Remains ventilated with FiO2 45%, PEEP 6. Chest x-ray today showed slight improvement of the pulmonary infiltrates, no pneumothorax. Completed 10-day course of IV Decadron. Will initiate slow Solu-Medrol taper. Continue IV Zosyn. Continue supportive care. 02/26: Afebrile. On vent with FiO2 45%, PEEP 6. Completed 10 days of IV Decadron. Will continue IV Zosyn. Continue supportive care. Critical care time 30 minutes spent reviewing charts, reviewing imaging, reviewing labs, discussion with RN. 02/27: Afebrile. On vent with FiO2 45%, PEEP 6. Completed 10 days of steroids and completed remdesivir. Continue with IV Zosyn. CPAP trial yesterday. Continue NG tube and supportive care. 02/28:. Patient remains on vent with FiO2 40%, PEEP 5. Afebrile. Completed steroids and remdesivir. Some noted hypoglycemia overnight, will de-escalate basal insulin. Continue IV Zosyn. Ventilator management per pulmonology. Continue NG tube and supportive care. 03/01: On vent with FiO2 40%, PEEP 5. Afebrile. Completed steroids and remdesivir. Blood glucose well controlled. Continue empiric antibiotics with Zosyn. Ventilator management per pulmonology. Continue NG tube and supportive care. 03/02: No acute events overnight. Patient hypotensive the morning due to oversedation. Will wean off sedation and keep antihypertensive medications on board. Currently saturating 100% on vent settings of 18/450/40/5. Will attempt spontaneous breathing trial today to see how patient does. 03/03: No acute events overnight. Patient saturating 98% on vent settings of 18/450/40/5. Will defer spontaneous breathing trials to pulmonary at this time. Patient's chart, labs, images were reviewed and discussed with RN 03/04: No acute events overnight. Patient saturating 9 9% on vent settings of 18/450/30/5. Patient currently is unable to tolerate weaning. Per pulmonary. Patient's chart, labs, images were reviewed and discussed with RN 03/05: No acute events overnight. Patient is saturating 97% on vent settings of 18/450/55/5. Her FiO2 needs to be increased due to abnormal ABG with 7.3 //24. Patient's chart, labs, images were reviewed and discussed with RN 03/06: No acute events overnight. Patient saturating 94% on vent settings of 18/450/55/5. Chest x-ray showing increase in pulmonary infiltrates. Wound care is consulted for decubitus ulcer patient's chart, labs, images were reviewed and discussed with RN 03/07: No acute events overnight. Patient saturating 94% on vent settings of 20/450/70/8. Patient now heading into renal failure with her creatinine bumped up from 1.5-4.2. Decreased urine output. Plan for hemodialysis today and temporary catheter placement and nephrology is consulted. 03/08: No acute events overnight. Patient did have a nausea vomiting episode and tube feeds were held. KUB repeat shows NG tube still in the stomach. Will resume tube feeds at trickle and advance to goal today. Will start hemodialysis soon. 03/09: Seen on vent 20/450/60%/8. ABG 7.2 WBC 11.4, Hb 7.4, platelets 188, NA 131, K4.9, BUN 48, CR 51, glucose 199, phosphorus 7.9, mag 2.2, AST 265 ALT 219, albumin 1.1. Chest radiograph appears unchanged from prior. Dialysis x1 today 03/10: Afebrile. Seen on vent, 20//60/7 with ABG 7.3 . Tolerated dialysis well on 03/09. LFTs similar. 03/11: Afebrile. Seen on vent, sedated. Still requiring Levophed for BP support. WBC 16.7, Hb 8.1, NA 130, ABG 7.3 on 55% FiO2 PEEP 6. On Zosyn and Zyvox Diflucan. Dialysis today 03/12: Afebrile. Still requiring Levophed for BP support sedated with Versed febrile Precedex. WBC 16.1, Hb 8.5, platelets 185, NA 133. Trach plan tentatively 03/17. O2 saturations 93% on 50% FiO2 PEEP 6. ABG 7./ On Zosyn and Zyvox Diflucan. 03/13: Afebrile. Still on Levophed for BP support lightly sedated. 7. on 45% FiO2. Plan for dialysis today. On Zosyn and Zyvox Diflucan. More swollen today. 03/14: Afebrile. Weaning down off Levophed. WBC 14.9 NA 132. O2 saturations 92% on 45% FiO2 PEEP 5. Afebrile. O2 saturations 91% on FiO2 45% PEEP 6. Continued on Zosyn and Zyvox Diflucan. Tentative trach planned 03/17/2021 CC time 31 minutes 03/16/21: Patient seen and examined in ICU. Periorbital as well as upper and lower extremity edema noted. OG feed running at 30cc/hr. Still on vent on pressure control with a rate of 24 with 45% FiO2. Patient has rectal bag. Currently she has 98% O2 sat. Currently sedated with Dexmedetomidine, Propofol, Versed, and Fentanyl. Discussed with RN. Chart reviewed. 03/17/21: Patient was seen and examined in the ICU today. Periorbital edema as well as abdominal and mons pubis edema was noted. Patient still on vent on pressure control with Fi02 of 45% plus 6 PEEP. Patient had rectal bag. Currently sedated on Dexmedetomidine, Propofol, Versed, and Fentanyl. Discussed with RN. Chart reviewed. 03/18/21: Patient seen and examined in ICU. On vent via trach that was placed yesterday. Vent settings are Pressure Control of 40 with FiO2 of 45% and 6 PEEP. Trach clean and dry. Orbital swelling still present. Pupils are sluggish. Patient on TPN running at 30cc/hr. Kern to bedside and rectal bag in place. Current O2 sat at 94%. Sedated on Dexmedetomidine, Propofol, Versed, and Fentanyl. Discussed with RN. Chart reviewed. 03/19/21: Patient was seen and examined in the ICU today. Currently on vent via trach on pressure control of 42, rate of 24, FiO2 of 45%, and 6 PEEP. O2 sat is at 97% while patient is being examined. Trach is clean and dry. PICC line is in place on right arm. Periorbital swelling has decreased slightly since examined yesterday. Patient is sedated on Dexmedetomidine, Propofol, Versed, and Fentanyl. Discussed with RN. Chart reviewed. 03/20/21: Patient seen and examined in the ICU. Periorbital edema is slightly decreased since yesterday. O2 sat while being examined was 93%. NG tube in place and running at 30cc/hr. Patient on vent via trach on pressure control of 40 with FiO2 of 45 and rate of 24. Sedated on Dexmedetomidine, Propofol, Versed, and Fentanyl. PICC line in place. Kern to bedside. Rectal bag present. Discussed with RN. Chart reviewed. 03/21/21: Patient was seen and examined in the ICU today. She was semi-sedated.. She was on Dexmedetomidine and Fentanyl. We are holding the Propofol. Her eyes were periodically open but she was not making meaningful eye contact or tracking. On vent via trach with pressure control of 40 and FiO2 at 45. Rate was 24. PEEP was 5. Trach was clean and dry. While being examined, her O2 sat was 94%. Rectal bag and Kern to bedside in place. NG tube in place and feeding at 30cc/hr. IV fluids still running. Levophed has been stopped. Discussed with RN. Chart reviewed. 03/22/21: Patient was seen and examined in the ICU. She was semi-sedated on Propofol and Dexmedetomidine. Her eyes were open but she did not make meaningful eye contact. Her blood pressure was elevated (198/102) while being examined and she had just been given hydralazine to lower it. There are plans to place a PEG tube tomorrow. Currently on vent via trach on pressure control of 40 with FiO2 of 45%, 5 PEEP, and a rate of 24. Current O2 sat is 98%. She is feeding through an NG tube at 30cc/hr. Rectal bag and Kern to bedside present. SCDs on patient for DVT prophylaxis. She did not do her daily dialysis today but the plan is to start back on that tomorrow. Discussed with RN. Chart reviewed. 03/23/2021: Patient remains in ICU on ventilator. FiO2 40%, PEEP 5. Trach cultures positive for [place] albicans and acinebacter ursungi. We will continue treatment with IV antibiotics and micafungin, per ID. HD per nephrology. Plans for PEG tube placement today. 30 minutes critical care time was spent reviewing charts, reviewing labs, reviewing imaging, discussion with RN. 03/24/2021: Afebrile. On vent with FiO2 45%, PEEP 5. Had attempted PEG placement per GI yesterday, but unable to locate safe path for PEG; will consider surgical opinion. Once PEG is in place she should be stable for LTAC transfer when accepted. Continue antibiotics, per ID. 30 minutes critical care time was spent reviewing charts, reviewing labs, reviewing imaging, discussion with RN. 03/25/2021: Febrile overnight with T-max 101.5 F. On vent with FiO2 45%, PEEP 5. Surgery has been consulted with tentative plans for laparoscopic versus open gastrostomy placement tomorrow. Trach cultures positive for [place] albicans and now acinebacter ursungi; will continue antibiotic management, per ID. Hemodialysis, per nephrology. Patient needing LTAC placement, but currently without benefits. [employer] worker following for discharge planning. Critical care time 30 minutes spent reviewing charts, reviewing labs, reviewing imaging, discussion with RN. 03/26/2021: Febrile today with T-max 100.5 F. Awake on vent with FiO2 45%, PEEP 5. When I ask if she remembers any she nods. G-tube placement scheduled for tomorrow, per general surgery. Chest x-ray today showed slight interval increase in diffuse infiltrate. Continue antibiotic management, per ID. Hemodialysis per nephrology. Reportedly did not tolerate CPAP trial this morning. [employer] worker following for LTAC placement. Critical care time 30 minutes spent reviewing charts, reviewing labs, reviewing imaging, discussion w robert ALEXIS. 03/27/2021: On vent with FiO2 45%, PEEP 5. Afebrile today. Continue treatment of acute renal failure requiring HD, per nephrology. Monitor kidney function for recovery. G-tube placement scheduled for today, per general surgery. Likely LTAC placement soon, but this is been a difficult as she is self-pay without benefits; social worker palliative care following. Critical care time 30 minutes spent reviewing charts, reviewing labs, reviewing imaging, discussion with RN. 03/28/2021: Afebrile. On vent with FiO2 40%, PEEP 5. Had laparoscopic gastrostomy tube placed yesterday, per general surgery. Continue treatment of acute renal failure requiring HD, per nephrology. Continue IV antibiotics, per ID. Likely LTAC placement soon, but this is been a difficult as she is self-pay without benefits; social worker palliative care following. Critical care time 30 minutes spent reviewing charts, reviewing labs, reviewing imaging, discussion with RN. 03/29/2021: Afebrile. On vent with FiO2 45%, PEEP 5. S/P laparoscopic g astrostomy tube; tube feeds running. HD, per nephrology. Continue meropenem, per ID. Anticipate LTAC placement soon now that PEG has being placed; social worker palliative care helping in these regards. Critical care time 30 minutes spent reviewing charts, reviewing labs, reviewing imaging, discussion with RN. 03/30 No major events or clinical changes overnight. Patient evaluated at bedside is morning on trach and G-tube. Tolerating these well. Has been working on insurance for patient for placement as she will need long-term care. Guarded prognosis. Plan of care discussed with bedside nurse. 03/31 No major clinical changes. Remains trached. Sedated. Continue current plan. 04/01 No changes. Patient resting in bed when evaluated sedated. is supposed to be working on insurance for placement for the patient. Otherwise no changes. 04/02 Patient febrile overnight, daptomycin added this morning per infectious disease. Otherwise no major clinical changes. Awaiting insurance. Infectious disease, pulmonary and renal following. Plan of care discussed with bedside RN. 04/03 Patient undergoing dialysis today. Evaluated at bedside this morning. otherwise continue current plan. supposed working on insurance. 04/04 No major overnight changes. Continue current plan. 04/05 Patient notably more movement this morning eyes open resting in bed otherwise no major changes. Continue current plan. Insurance pending. 04/06 Patient notably more movement this morning eyes open resting in bed current plan. Insurance pending. Continue daptomycin, renal dosing April 02 F/U Blood culture UA urine culture C. diff PCR negative 32 min cc time 04/07 Patient notably more movement this morning eyes open resting in bed current plan. Insurance pending. Continue daptomycin, renal dosing April 02 F/U Blood culture UA urine culture C. diff PCR negative Abnormal chest x-ray consistent with COVID-19 viral pneumonia. Diabetic ketoacidosis--resolved obesity contributing to hypoxia as well. BOB . hemodialysis started 03/07 DVT GI prophylaxis Nutritional support 34 min cc time 04/08 Patient notably more movement this morning eyes open resting in bed current plan. Insurance pending. Continue daptomycin, renal dosing April 02 F/U Blood culture UA urine culture C. diff PCR negative s/p lap G-tube 03/27 Abnormal chest x-ray consistent with COVID-19 viral pneumonia. Diabetic ketoacidosis--resolved obesity contributing to hypoxia as well. BOB . hemodialysis started 03/07 DVT GI prophylaxis Nutritional support Right PICC line February 14; left PICC line 04/07/2021 Right IJ HDC clean March 07 32 min cc time 04/09 non Oliguric for past 11/2 -2 weeks , good response to IV NS bolus .requiring dialysis., currently on MWF schedule, tolerating trach shield well.using her speaking valve./ resting in bed current / states she feels better Start iv Zyvox Cont Meropenem DC daptomycin post PICC line exchange aspiration precautions C. diff PCR negative F/U Blood culture UA urine culture s/p lap G-tube 03/27 Abnormal chest x-ray consistent with COVID-19 viral pneumonia. Diabetic ketoacidosis--resolved obesity contributing to hypoxia as well. BOB . hemodialysis started 03/07 DVT GI prophylaxis Nutritional support Right PICC line February 14 out; left PICC line 04/07/2021 Right IJ HDC clean March 07 34 min cc time Vitals/I&O Vitals/I&O: Vital Signs Date Time Temp Pulse Resp B/P (MAP) Pulse Ox O2 Delivery O2 Flow Rate FiO2 04/12/21 08:38 100 Tracheal Collar 8.0 04/12/21 06:00 88 22 152/78 04/12/21 04:00 99.0 99.0 I & O 04/11/21 04/11/21 04/12/21 15:00 23:00 07:00 Intake Total 271 ml Output Total 350 ml 245 ml 300 ml Balance -350 ml -245 ml -29 ml Physical Exam Physical Exam: GENERAL: Awake but seems confused has a tracheostomy in place HEENT: Normocephalic, atraumatic. Anicteric. Slight bilateral periorbital edema. Latter improving Neck right IJ HDC clean Trach + LUNGS: Rhonchi. HEART: S1, S2. No murmurs. ABDOMEN: Obese, soft. Bowel sounds present. Nontender, nondistended. PEG tube in place GENITOURINARY: Kern and fecal tube in place. EXTREMITIES: Edema present no cyanosis. CENTRAL NERVOUS SYSTEM: Intubated. PSYCHIATRIC: Confused Derm has pressure wounds wound pictures noted in chart. Generalized rash, Right PICC line February 14 removed; left PICC line 04/07/2021 Right IJ HDC clean March 07 General: Alert, Cooperative, Other (Pleasantly confused) Heart: Regular rate, Normal S1, Normal S2 Lungs: Clear, Other (Has trach in place) Abdomen: Soft, Other (g tube bumper removed ) Extremities: No cyanosis, Other (ANASARCA) Skin: No rashes, No significant lesion Labs Labs: Laboratory Tests Test 04/11/21 18:08 04/11/21 23:31 04/12/21 05:07 04/12/21 13:01 Glucose (Fingerstick) 305 mg/dL (70-99) 291 mg/dL (70-99) 350 mg/dL (70-99) 226 mg/dL (70-99) Assessment and Plan Assessmemt and Plan Problems Medical Problems: (1) Ketoacidosis Status: Acute COVID-19 respiratory failure DKA Hypotension Nausea Vomiting Combined metabolic and respiratory acidosis Acute electrolyte derangementhyponatremia, hypochloremia due to volume depletion Hyperglycemia BOB due to ATN, requiring dialysis Erythrocytosis Candiduria Sacral decubitus ulcer S/P Trach on (03/17/21) Trach cultures positive for [place] albicans and now acinebacter ursungi Plan Await GI input to see if we can replace the PEG We went ahead and put a Kern into the old PEG site for now We will try to transfer out of ICU to the medical floor once off of the sedation Continue Precedex and fentanyl with as needed Ativan Schedule Prozac 20 a day Cardiac monitoring Home meds Trend labs DVT prophylaxis Full code Continue other treatments Appreciate subspecialist input Prognosis guarded but improved a lot over the last few days Comment Review of Relevant I have reviewed the following items mazin (where applicable) has been applied. Justifications for Admission Other Justification DIANELYS BLACKMON III DO Apr 12, 2021 14:13
--- NOTE | 2021-04-12 14:17 | PDOC ---
DATE OF SERVICE DATE: 04/12/21 TIME: 14:11 SUBJECTIVE ROS Stable , answering questions, talking appropriately wants to know if the speech doctor is coming today OBJECTIVE Vital Signs Vital Signs Date Time Temp Pulse Resp B/P (MAP) Pulse Ox O2 Delivery O2 Flow Rate FiO2 04/12/21 08:38 100 Tracheal Collar 8.0 04/12/21 06:00 88 22 152/78 04/12/21 04:00 99.0 99.0 I & 0 Intake and Output 04/12/21 07:00 Intake Total 271 ml Output Total 895 ml Balance -624 ml IV Total 271 ml Output Urine Total 895 ml PHYSICAL EXAM Physical Exam GENERAL: NAD , Trach collar HEENT: Anicteric. . Neck Trach+ LUNGS: decreased at bases HEART: S1, S2. No murmurs. ABDOMEN: Obese, soft. Bowel sounds present. GENITOURINARY: Kern in place. EXTREMITIES: Edema present no cyanosis. DIAGNOSIS/ASSESSMENT Assessment & Plan BOB-ATN- was anuric initially , non Oliguric for past 2 weeks No improvement in clearance - requiring dialysis., currently on MWF schedule,No Indciation today . Re-[place] tomorrow Supportive care, I/O avoid nephrotoxins, Monitor for recovery Access- temp HDC HypoNatremia - resolved stable HypoKalemia - K Normal since TF Change from Nepro to Normal K ; Pt pulled out her PEG DM 2 - Glucosuria + POA COVID 19 Pneumonia - Unvaccinated , treated, Off isolation Acute Resp Failure- Intubated ; CxR 04/01 Moderate diffuse pulmonary opacities, slightly decreased compared to prior. HTN BP very high during hospitalization. She reports no Hx of HTN , states was on lisinopril for Renoprotection with Hx of DM Anemia -avoid DOYLE 2/2 to Thrombogenic state Family History of ESRD - Per at bedside- Pt's Mom was on dialysis and sister is on Dialysis COMMENT/RELEVANT DATA Meds Current Medications Medications (Trade) Dose Ordered Sig/Pepe Start Time Stop Time Status Last Admin Dose Admin Acetaminophen (Tylenol Supp) 650 mg PRN Q6HRS PRN 02/08/21 01:45 02/17/21 10:45 DC Acetaminophen (Tylenol) 500 mg 1X PRN PRN 03/17/21 13:30 03/18/21 13:29 DC Albumin Human 200 ml @ 200 mls/hr 1X PRN PRN 04/06/21 08:45 04/06/21 14:44 DC 04/06/21 10:43 200 MLS/HR Albuterol Sulfate (Ventolin Hfa) 60 puff STK-MED ONCE 03/17/21 11:29 03/17/21 11:29 DC Alteplase, Recombinant (Cathflo For Central Catheter Clearance) 1 mg 1X ONCE 02/27/21 14:30 02/27/21 14:36 DC 02/27/21 15:19 1 MG Alteplase, Recombinant (Cathflo) 2 mg 1X ONCE 02/27/21 11:00 02/27/21 11:01 DC 02/27/21 11:20 2 MG Amlodipine Besylate (Norvasc) 10 mg DAILY 03/31/21 09:00 04/09/21 07:20 10 MG Atorvastatin Calcium (Lipitor) 40 mg HS 02/08/21 21:00 04/09/21 21:47 40 MG Atropine Sulfate (ATROPINE 0.5mg SYRINGE) 0.5 mg PRN Q5MIN PRN 02/16/21 12:00 Azithromycin 250 mg/Sodium Chloride 250 ml @ 250 mls/hr Q24H 02/14/21 13:30 02/18/21 14:29 DC 02/18/21 11:51 250 MLS/HR Benzonatate (Tessalon Perle) 100 mg [id number] 02/10/21 23:30 02/17/21 10:45 DC 02/16/21 22:07 100 MG Bupivacaine HCl/ Epinephrine Bitart (Sensorcain-Epi 0.5% Kit) 30 ml STK-MED ONCE 03/27/21 10:05 03/27/21 10:05 DC 03/27/21 13:12 16 ML Bupivacaine HCl/ Epinephrine Bitart (Sensorcain-Epi 0.5%-1:[id number] Mpf) 30 ml STK-MED ONCE 03/17/21 10:47 03/17/21 10:47 DC Carvedilol (Coreg) 6.25 mg [id number] 02/08/21 20:30 02/23/21 15:50 DC 02/23/21 08:06 6.25 MG Cefazolin Sodium/ Dextrose (Ancef 2gm Premix) 2 gm STK-MED ONCE 03/23/21 13:00 03/24/21 11:58 DC Ceftriaxone Sodium (Rocephin) 1 gm Q24H 02/14/21 13:00 02/23/21 07:34 DC 02/22/21 12:42 1 GM Cellulose (Surgicel Fibrillar 1x2) 1 each STK-MED ONCE 03/17/21 10:47 03/17/21 10:47 DC 03/17/21 11:56 1 EACH Daptomycin 480 mg/ Sodium Chloride 50 ml @ 100 mls/hr QMWF 03/23/21 16:00 03/26/21 10:29 DC 03/25/21 19:52 100 MLS/HR Daptomycin 500 mg/ Sodium Chloride 50 ml @ 100 mls/hr Q48H 04/02/21 10:00 04/09/21 10:52 DC 04/08/21 13:14 100 MLS/HR Dexamethasone Sodium Phosphate (Decadron) 2 mg 1X ONCE 02/27/21 09:00 02/26/21 07:15 DC Dexmedetomidine HCl 400 mcg/ Sodium Chloride 100 ml @ 0 mls/hr CONT PRN 02/27/21 09:45 04/12/21 10:05 17.4 MLS/HR Dextrose (Dextrose 50%-Water Syringe) 12.5 gm PRN Q15MIN PRN 03/01/21 13:00 03/01/21 12:55 12.5 GM Diphenhydramine HCl (Benadryl) 25 mg 1X PRN PRN 03/17/21 13:30 03/18/21 13:29 DC Docusate Sodium (Colace Solution) 100 mg BID 02/23/21 12:00 04/09/21 21:47 100 MG Docusate Sodium (Colace) 100 mg PRN DAILY PRN 02/07/21 08:45 02/23/21 10:47 DC Enalaprilat (Vasotec Inj) 0.625 mg Q6HRS 02/08/21 16:15 02/09/21 16:01 DC 02/09/21 13:42 0.625 MG Enoxaparin Sodium (Lovenox 30mg Syringe) 30 mg Q24H 03/08/21 09:00 03/12/21 15:38 DC 03/12/21 09:04 30 MG Enoxaparin Sodium (Lovenox 40mg Syringe) 40 mg BID 02/09/21 09:00 03/08/21 13:56 DC 03/08/21 08:26 40 MG Enoxaparin Sodium (Lovenox Per Pharmacy Prophylaxis Dosing) 1 each PRN DAILY PRN 02/09/21 06:45 03/12/21 15:38 DC Ephedrine Sulfate (ePHEDrine PF IN SALINE SYRINGE) 50 mg STK-MED ONCE 03/17/21 10:56 03/17/21 10:56 DC Famotidine (Pepcid Vial) 20 mg DAILY 03/10/21 09:00 04/12/21 10:04 20 MG Fentanyl Citrate 30 ml @ 0 mls/hr CONT PRN PRN 04/08/21 07:15 04/12/21 05:04 2 MLS/HR Fentanyl Citrate (Fentanyl 2ml Vial) 100 mcg STK-MED ONCE 03/27/21 13:18 03/27/21 13:18 DC Fluconazole/ Sodium Chloride 100 ml @ 100 mls/hr Q24H 03/07/21 09:00 03/17/21 08:03 DC 03/16/21 08:29 100 MLS/HR Fluoxetine HCl (PROzac) 20 mg 1X ONCE 04/10/21 11:15 04/10/21 11:34 DC Furosemide (Lasix) 40 mg 1X ONCE 03/29/21 15:00 03/29/21 15:02 DC 03/29/21 15:22 40 MG Glycerin/ Hypromellose/ Polyethylene (Artificial Tears) 1 drop PRN Q1HR PRN 02/17/21 10:00 04/05/21 08:02 1 DROP Glycopyrrolate (Robinul) 1 mg STK-MED ONCE 03/27/21 14:07 03/27/21 14:07 DC Guaifenesin (Robitussin Dm) 10 ml PRN Q6HRS PRN 02/10/21 23:30 02/16/21 09:06 10 ML Haloperidol Lactate (Haldol Inj) 5 mg Q8HRS 04/01/21 11:30 04/07/21 14:58 DC 04/07/21 05:51 5 MG Heparin Sodium (Porcine) (Heparin Sodium) 5,000 unit Q8HRS 03/13/21 06:00 04/12/21 05:30 5,000 UNIT Hydralazine HCl (Apresoline Inj) 10 mg PRN Q4HRS PRN 02/11/21 12:15 04/10/21 05:55 10 MG Hydromorphone HCl (Dilaudid) 0.5 mg PRN Q10MIN PRN 03/27/21 06:00 03/28/21 05:59 DC Info (PHARMACY MONITORING -- do not chart) 1 each PRN DAILY PRN 04/10/21 13:30 Cancel Insulin Glargine (Lantus Syringe) 5 unit BID 03/06/21 09:00 04/12/21 10:04 5 UNIT Insulin Human Lispro (HumaLOG) 12 units Q6HRS 02/20/21 12:00 02/28/21 15:38 DC 02/27/21 05:41 12 UNITS Insulin Human Regular 100 ml @ 10 mls/hr 1X ONCE 02/07/21 06:30 02/07/21 16:54 DC 02/07/21 09:31 6.5 MLS/HR Insulin Human Regular 100 unit/ Sodium Chloride 101 ml @ 0 mls/hr CONT PRN PRN 02/07/21 06:00 02/07/21 16:54 DC Labetalol HCl (Normodyne Iv Push) 10 mg PRN Q2HR PRN 02/08/21 00:45 04/11/21 03:10 10 MG Lactobacillus Rhamnosus (Culturelle) 1 cap BID 02/16/21 21:00 02/17/21 10:45 DC 02/16/21 22:02 1 CAP Lidocaine HCl (Buffered Lidocaine 1%) 3 ml STK-MED ONCE 03/07/21 13:25 03/07/21 13:25 DC Linezolid (Zyvox) 600 mg BID 03/05/21 09:00 03/12/21 07:00 DC 03/11/21 20:33 600 MG Linezolid/Dextrose 300 ml @ 300 mls/hr Q12HR 04/09/21 12:00 04/11/21 12:54 DC 04/11/21 09:59 300 MLS/HR Lisinopril (Prinivil) 20 mg DAILY 02/17/21 09:00 03/09/21 10:43 DC 02/27/21 09:10 20 MG Lorazepam (Ativan Inj) 1 mg PRN Q2HR PRN 04/10/21 11:15 Magnesium Sulfate 50 ml @ 25 mls/hr PRN DAILY PRN 04/04/21 13:00 Meropenem 1 gm/ Sodium Chloride 100 ml @ 200 mls/hr Q24H 03/18/21 17:00 04/10/21 11:57 DC 04/09/21 17:00 200 MLS/HR Methylprednisolone Sodium Succinate (SOLU-Medrol 125MG VIAL) 80 mg Q8HRS 02/25/21 09:00 02/26/21 07:09 DC 02/26/21 05:52 80 MG Metoclopramide HCl (Reglan Vial) 10 mg PRN Q6HRS PRN 02/08/21 00:45 02/12/21 15:51 10 MG Micafungin Sodium 100 mg/Dextrose 100 ml @ 100 mls/hr Q24H 03/21/21 18:00 03/25/21 10:27 DC 03/24/21 16:36 100 MLS/HR Midazolam HCl 100 ml @ 0 mls/hr CONT PRN 02/17/21 10:00 03/20/21 17:18 5 MLS/HR Morphine Sulfate (Morphine Sulfate) 1 mg PRN Q10MIN PRN 03/27/21 06:00 03/28/21 05:59 DC Multi-Ingred Cream/Lotion/Oil/ Oint (Artificial Tears Eye Ointment) 1 reji PRN Q1HR PRN 03/17/21 17:30 03/20/21 15:55 1 REJI Multivitamins/ Minerals Therapeutic (Centrum Multivit-Mineral Liq) 5 ml DAILY 03/14/21 09:00 04/09/21 07:21 5 ML Naloxone HCl (Narcan) 0.4 mg PRN Q2MIN PRN 03/27/21 14:30 Neostigmine Rimrock (Neostigmine Methylsulfate) 5 mg STK-MED ONCE 03/27/21 14:06 03/27/21 14:07 DC Norepinephrine Bitartrate 8 mg/ Dextrose 258 ml @ 21.711 mls/ hr CONT PRN 03/06/21 13:45 03/19/21 18:45 23.3 MLS/HR Nystatin (Nystop) 1 reji BID 03/02/21 21:00 04/12/21 10:04 1 REJI Ondansetron HCl (Zofran Odt) 4 mg 1X ONCE 02/06/21 23:30 02/06/21 23:31 DC 02/06/21 23:57 4 MG Ondansetron HCl (Zofran) 4 mg 1X ONCE 02/07/21 20:00 02/07/21 20:07 DC 02/07/21 20:06 4 MG Phenylephrine HCl (PHENYLEPHRINE in 0.9% NACL PF) 1 mg STK-MED ONCE 03/27/21 13:46 03/27/21 13:46 DC Piperacillin Sod/ Tazobactam Sod (Zosyn Per Pharmacy) 1 each PRN DAILY PRN 02/23/21 07:45 03/17/21 10:04 DC Piperacillin Sod/ Tazobactam Sod 2.25 gm/Sodium Chloride 50 ml @ 100 mls/hr Q8HRS 03/07/21 14:00 03/17/21 08:03 DC 03/17/21 05:58 100 MLS/HR Piperacillin Sod/ Tazobactam Sod 3.375 gm/Sodium Chloride 50 ml @ 100 mls/hr Q6HRS 03/14/21 18:00 Cancel Piperacillin Sod/ Tazobactam Sod 4.5 gm/Sodium Chloride 100 ml @ 200 mls/hr Q6HRS 02/23/21 08:00 03/07/21 08:18 DC 03/07/21 06:12 200 MLS/HR Potassium Chloride/Water 100 ml @ 100 mls/hr Q1H 04/04/21 14:00 04/04/21 15:59 DC 04/04/21 15:12 100 MLS/HR Potassium Chloride (Klor-Con) 40 meq 1X ONCE 02/13/21 12:00 02/13/21 12:01 DC 02/13/21 13:21 40 MEQ Prochlorperazine Edisylate (Compazine) 5 mg PACU PRN PRN 03/27/21 06:00 03/28/21 05:59 DC Propofol (Diprivan) 200 mg STK-MED ONCE 03/27/21 12:02 03/27/21 12:03 DC Remdesivir 100 mg/ Sodium Chloride 230 ml @ 460 mls/hr Q24H 02/15/21 12:00 02/18/21 12:29 DC 02/18/21 11:52 460 MLS/HR Remdesivir 200 mg/ Sodium Chloride 210 ml @ 210 mls/hr 1X ONCE 02/11/21 13:00 02/12/21 11:55 DC 02/11/21 14:33 210 MLS/HR Ringer's Solution 1,000 ml @ 30 mls/hr Q24H 03/27/21 06:00 03/27/21 17:59 DC Rocuronium Rimrock (Zemuron) 50 mg STK-MED ONCE 03/27/21 13:16 03/27/21 13:17 DC Sennosides (Senna) 17.2 mg PRN BID PRN 02/07/21 08:45 02/22/21 08:29 17.2 MG Sevoflurane (Ultane) 60 ml STK-MED ONCE 03/27/21 14:19 03/27/21 14:20 DC Sodium Chloride 500 ml @ 500 mls/hr 1X ONCE 04/08/21 16:45 04/08/21 17:44 DC 04/08/21 17:10 500 MLS/HR Sodium Chloride (Normal Saline Flush) 3 ml QSHIFT PRN 03/27/21 14:30 Succinylcholine Chloride (Anectine) 200 mg STK-MED ONCE 02/17/21 10:00 02/25/21 08:40 DC Vancomycin HCl (Vanco Per Pharmacy) 1 each PRN DAILY PRN 03/04/21 18:30 03/05/21 08:59 DC 03/04/21 19:47 1 EACH Vancomycin HCl (Vancomycin Trough Level) 1 each 1X ONCE 03/06/21 07:00 03/06/21 07:01 Cancel Vancomycin HCl 1.5 gm/Sodium Chloride 500 ml @ 250 mls/hr Q12H 03/05/21 07:30 03/05/21 08:58 DC Vancomycin HCl 1 gm/Sodium Chloride 250 ml @ 250 mls/hr Q12H 03/04/21 20:00 UNV Vancomycin HCl 2 gm/Sodium Chloride 500 ml @ 250 mls/hr 1X ONCE 03/04/21 19:00 03/04/21 20:59 DC 03/04/21 19:26 250 MLS/HR Vecuronium Rimrock (Norcuron Bolus) 6 mg PRN Q2HRS PRN 03/06/21 14:30 03/16/21 10:16 5 MG Vitamin A/Vitamin D (Vitamin A & D Ointment) 1 reji PRN Q1HR PRN 03/10/21 01:45 03/20/21 09:34 1 REJI Zolpidem Tartrate (Ambien) 5 mg PRN QHS PRN 04/10/21 11:15 Lab Laboratory Tests Test 04/11/21 18:08 04/11/21 23:31 04/12/21 05:07 04/12/21 13:01 Glucose (Fingerstick) 305 mg/dL (70-99) 291 mg/dL (70-99) 350 mg/dL (70-99) 226 mg/dL (70-99) Results All relevant outside records, renal labs, imaging studies, telemetry/EKG's were reviewed. Justicifation of Admission Dx: Justifications for Admission: Justification of Admission Dx: N/A GIGI CARMEN MD Apr 12, 2021 14:17
[2021-04-12] MEDS: LABETALOL 20 MG/4 ML DISP.SYRIN. IVP PRN (14:29)
[2021-04-12] MEDS: ATORVASTATIN CALCIUM 40 MG TABLET. PO SCH (19:34)
[2021-04-13] VITALS (29 sets, daily range): BP systolic 89–219; BP diastolic 58–114
[2021-04-13] MEDS: DEXMEDETOMIDINE 400 MCG in IV NORMAL SALINE 100ML 96 ML IV PRN ×2 (03:52→17:16)
[2021-04-13] MEDS: INSULIN LISPRO 300 UNITS/3 ML VIAL. SQ SCH ×4 (05:39→23:43)
[2021-04-13] MEDS: HEPARIN for SUB-Q USE 5,000 UNIT/ML VIAL. SQ SCH ×3 (05:41→21:32)
[2021-04-13 06:15] LABS: GFR 16.9; POTASSIUM 3.7 mmol/L (3.5-5.1)
--- NOTE | 2021-04-13 08:08 | PDOC ---
Infectious Disease Note Subjective: Subjective Patient awake alert Remains afebrile for the last 48 hours Vital Signs: Vital Signs Vital Signs Date Time Temp Pulse Resp B/P (MAP) Pulse Ox O2 Delivery O2 Flow Rate FiO2 04/13/21 06:00 85 18 138/62 100 Tracheal Collar 04/13/21 04:00 99.0 99.0 04/13/21 00:42 8.0 Physical Exam: PHYSICAL EXAM GENERAL: Awake, alert HEENT: Normocephalic, atraumatic. Anicteric. Slight bilateral periorbital edema. Latter improving Neck right IJ HDC clean Trach + capped LUNGS: Rhonchi. HEART: S1, S2. No murmurs. ABDOMEN: Obese, soft. Bowel sounds present. Nontender, nondistended. PEG tube pulled out by patient GENITOURINARY: Kern and fecal tube in place. EXTREMITIES: Edema present no cyanosis. CENTRAL NERVOUS SYSTEM: Intubated. PSYCHIATRIC: Confused Derm has pressure wounds wound pictures noted in chart. Generalized rash, Right PICC line removed; left PICC line 04/07/2021 Right IJ HDC clean March 07 Medications: Inpatient Meds: Medications reviewed. Labs: Lab Laboratory Tests Test 04/12/21 13:01 04/12/21 23:45 04/13/21 05:30 04/13/21 05:38 Glucose (Fingerstick) 226 mg/dL (70-99) 318 mg/dL (70-99) 171 mg/dL (70-99) Sodium Level 144 mmol/L (136-145) Potassium Level 3.7 mmol/L (3.5-5.1) Chloride Level 103 mmol/L (98-107) Carbon Dioxide Level 25 mmol/L (21-32) Anion Gap 16 (6-14) Blood Urea Nitrogen 62 mg/dL (7-20) Creatinine 3.0 mg/dL (0.6-1.0) Estimated GFR (Cockcroft-Gault) 16.9 Glucose Level 178 mg/dL (70-99) Calcium Level 10.0 mg/dL (8.5-10.1) Micro GRAM STAIN EVALUATION Final Final This specimen is of good quality and is acceptable for routine bacterial culture. Culture results to follow. NO ORGANISMS SEEN. SQUAMOUS EPI CELL:RARE PMN (WBCs):MODERATE Unless otherwise specified, Testing Performed by: [address] [address] For Inquires, the Physician may contact the Microbiology department at [phone] RESPIRATORY CULTURE Final Final MODERATE GRAM NEGATIVE RODS on 03/18/21 at 1120 FINAL ID= [ACINETOBACTER [email or web address].] ACINETOBACTER URSINGII. ANTIMICROBIAL SUSCEPTIBILITY Final Comment NEG SAGE 56 ACINETOBACTER URSINGII. ANTIBIOTIC RESULT INTERPRETATION AMPICILLIN/SULBACTAM <=4/2 S AMIKACIN <=16 S CEFTRIAXONE 2 S CEFTAZIDIME 16 I CEFOTAXIME 16 I CIPROFLOXACIN <=0.25 S CEFEPIME 4 S GENTAMICIN <=2 S LEVOFLOXACIN <=0.5 S RUN DATE: 03/19/21 [facility] *LIVE* PAGE 2 RUN TIME: 1120 Specimen Inquiry SPEC: [id number] PATIENT: ARIADNA BANKS [id number] (Continued) Procedure Result CONTINUED ON NEXT PAGE RUN DATE: 03/19/21 [facility] *LIVE* PAGE 3 RUN TIME: 1120 Specimen Inquiry SPEC: [id number] PATIENT: ARIADNA BANKS [id number] (Continued) Procedure Result ANTIMICROBIAL SUSCEPTIBILITY Final (continued) MINOCYCLINE <=4 S MEROPENEM <=1 S TRIMETHOPRIM/SULFAMETHOXAZOLE <=0.5/9.5 S TOBRAMYCIN <=2 S Unless otherwise specified, Testing Performed by: [address] [address] For Inquires, the Physician may contact the Microbiology department at [phone] Culture negative Objective: Assessment: 1. Febrile illness. Resolved 2. COVID-19 infection present on date of admission, 02/06/2021. Status post remdesivir, dexamethasone. 3. Acute hypoxic respiratory failure, status post intubation. S/P Trach on 03/17 Trach cultures positive for Rock albicans and now acinebacter ursungi 4. Diabetes. 5. Diarrhea. 6. Hypertension. 7. Hyperlipidemia. 8. Anemia. 9. BOB on HD 10.UC rock alb[place], ua neg 11. Nausea and vomiting 12. Leukocytosis likely reactive as patient had nausea and vomiting has pulled out PEG tube Plan: Plan of Care Monitor off antibiotics Leukocytosis appears to be reactive Remains afebrile in the last48 hours Off Zyvox, started on fluoxetine Off meropenem has been on since March 18 Maintain aspiration precautions Status post PICC line exchange Monitor lab and cultures C. diff PCR negative Follow Kern maintenance protocol maintenance of way clerk If fever recurs may need HD catheter removal Wound care per wound treatment Offload Continue supportive care. d/w at bedside yesterday KAITLYNN CRAIG MD Apr 13, 2021 08:08
[2021-04-13] MEDS: DOCUSATE 100 MG/10 ML SOLUTION. PO SCH ×2 (09:00→21:00)
[2021-04-13] MEDS: NYSTATIN TOPICAL POWDER 15GM BOTTLE. TP SCH ×2 (09:00→21:00)
[2021-04-13] MEDS: MULTIVITAMINS,THERAPEUTIC 5 ML ORAL LIQUID. PEG SCH (09:00)
--- NOTE | 2021-04-13 09:50 | PDOC ---
PULMONARY PROGRESS NOTES DATE: 04/13/21 TIME: 09:48 Subjective Patient now more short of air, wants to eat some Vitals Vital Signs Date Time Temp Pulse Resp B/P (MAP) Pulse Ox O2 Delivery O2 Flow Rate FiO2 04/13/21 08:19 100 Tracheal Collar 8.0 04/13/21 06:00 85 18 138/62 04/13/21 04:00 99.0 99.0 Lungs: Clear, Other (Has trach in place) Cardiovascular: S1 Abdomen: Soft, Non-tender Skin: Warm Labs Laboratory Tests Test 04/11/21 18:08 04/11/21 23:31 04/12/21 05:07 04/12/21 13:01 Glucose (Fingerstick) 305 mg/dL (70-99) 291 mg/dL (70-99) 350 mg/dL (70-99) 226 mg/dL (70-99) Test 04/12/21 23:45 04/13/21 05:30 04/13/21 05:38 Glucose (Fingerstick) 318 mg/dL (70-99) 171 mg/dL (70-99) Sodium Level 144 mmol/L (136-145) Potassium Level 3.7 mmol/L (3.5-5.1) Chloride Level 103 mmol/L (98-107) Carbon Dioxide Level 25 mmol/L (21-32) Anion Gap 16 (6-14) Blood Urea Nitrogen 62 mg/dL (7-20) Creatinine 3.0 mg/dL (0.6-1.0) Estimated GFR (Cockcroft-Gault) 16.9 Glucose Level 178 mg/dL (70-99) Calcium Level 10.0 mg/dL (8.5-10.1) Laboratory Tests Test 04/12/21 13:01 04/12/21 23:45 04/13/21 05:30 04/13/21 05:38 Glucose (Fingerstick) 226 mg/dL (70-99) 318 mg/dL (70-99) 171 mg/dL (70-99) Sodium Level 144 mmol/L (136-145) Potassium Level 3.7 mmol/L (3.5-5.1) Chloride Level 103 mmol/L (98-107) Carbon Dioxide Level 25 mmol/L (21-32) Anion Gap 16 (6-14) Blood Urea Nitrogen 62 mg/dL (7-20) Creatinine 3.0 mg/dL (0.6-1.0) Estimated GFR (Cockcroft-Gault) 16.9 Glucose Level 178 mg/dL (70-99) Calcium Level 10.0 mg/dL (8.5-10.1) Medications Active Scripts Medications Dose Route/Sig Max Daily Dose Days Date Category Novolog Flexpen (Insulin Aspart) 100 Unit/1 Ml Insuln.pen 3-7 SQ TIDACHC 02/07/21 Reported Lisinopril 5 Mg Tablet 1 Tab PO DAILY 02/07/21 Reported Lantus Solostar (Insulin Glargine,Hum.rec.anlog) 100 Unit/1 Ml Insuln.pen 5 Unit SQ QHS 04/09/15 Reported Atorvastatin Calcium 40 Mg Tablet 40 Mg PO HS 04/09/15 Reported Impression . IMPRESSION: 1. Acute hypoxic respiratory failure secondary to COVID-19 viral pneumonia/acute lung injury and early acute respiratory distress syndrome. S/P intubation 02/17/21. Status post tracheostomy. 2. Nonsmoker. 3. Abnormal chest x-ray consistent with COVID-19 viral pneumonia. 4. Diabetic ketoacidosis--resolved 5. Underlying obesity contributing to hypoxia as well. 6. BOB . hemodialysis started 03/07 7. Fever, 30 ID 8. Abnormal chest x-ray with diffuse interstitial infiltrates compatible with viral pneumonia 9. [place] in the sputum is a contamination 10. Septic shoc 11. s/p lap G-tube 03/27 12. Delirium Plan . Updated statin/4 Continue trach shield with Pass[place] valve Follow-up with speech Continue hemodialysis DVT nutritional support Updated 04/12 24 hr trach shield . Tolerating it well so far. We will continue with speaking valve. She currently has size 7 trach. We will proceed with capping trach in a.m. Per discussion with general surgery, no plan to further downsize trach. If she does well in next week, decannulate No evidence of ileus. Emesis per PCP Antibiotics per ID Follow cultures Continue hemodialysis. Follow renal recommendations. DVT GI prophylaxis Nutritional support Discussed with patient's . Updated 04/11 We will do 24 hr trach shield trials Tolerating it well so far. We will continue with speaking valve. She currently has size 7 trach. Once she is able to tolerate for 48 hours on trach shield,. We will try capping trach. Per discussion with general surgery, no plan to further downsize trach. If she does well in next week, decannulate No evidence of ileus. Emesis per PCP Antibiotics per ID Follow cultures Continue hemodialysis. Follow renal recommendations. DVT GI prophylaxis Nutritional support MONTEZ OROPEZA MD Apr 13, 2021 09:50
--- NOTE | 2021-04-13 09:52 | PDOC ---
DATE OF SERVICE DATE: 04/13/21 TIME: 09:47 SUBJECTIVE ROS States she is feeling Hot No N/V OBJECTIVE Vital Signs Vital Signs Date Time Temp Pulse Resp B/P (MAP) Pulse Ox O2 Delivery O2 Flow Rate FiO2 04/13/21 08:19 100 Tracheal Collar 8.0 04/13/21 06:00 85 18 138/62 04/13/21 04:00 99.0 99.0 I & 0 Intake and Output 04/13/21 07:00 Intake Total 132.86 ml Output Total 1080 ml Balance -947.14 ml IV Total 132.86 ml Output Urine Total 1080 ml PHYSICAL EXAM Physical Exam GENERAL: NAD , Trach collar HEENT: Anicteric. . Neck Trach+ LUNGS: decreased at bases HEART: S1, S2. No murmurs. ABDOMEN: Obese, soft. Bowel sounds present. GENITOURINARY: [place] in place. EXTREMITIES: Edema present no cyanosis. DIAGNOSIS/ASSESSMENT Assessment & Plan BOB-ATN- was anuric initially , non Oliguric for past 3 weeks No improvement in clearance - requiring dialysis., Cr stable today .currently on MWF schedule, Renal function, E-Lytes, Resp status stable. Will hold off dialysis today . Re-[place] tomorrow Supportive care, I/O avoid nephrotoxins, Monitor for recovery Access- temp HDC HypoNatremia - resolved stable HypoKalemia - K Normal since TF Change from Nepro to Normal K ; Pt pulled out her PEG DM 2 - Glucosuria + POA COVID 19 Pneumonia - Unvaccinated , treated, Off isolation Acute Resp Failure- Intubated ; CxR 04/01 Moderate diffuse pulmonary opacities, slightly decreased compared to prior. HTN BP very high during hospitalization. She reports no Hx of HTN , states was on lisinopril for Renoprotection with Hx of DM Anemia -avoid DOYLE 2/2 to Thrombogenic state Family History of ESRD - Per at bedside- Pt's Mom was on dialysis and sister is on Dialysis COMMENT/RELEVANT DATA Meds Current Medications Medications (Trade) Dose Ordered Sig/Pepe Start Time Stop Time Status Last Admin Dose Admin Acetaminophen (Tylenol Supp) 650 mg PRN Q6HRS PRN 02/08/21 01:45 02/17/21 10:45 DC Acetaminophen (Tylenol) 500 mg 1X PRN PRN 03/17/21 13:30 03/18/21 13:29 DC Albumin Human 200 ml @ 200 mls/hr 1X PRN PRN 04/06/21 08:45 04/06/21 14:44 DC 04/06/21 10:43 200 MLS/HR Albuterol Sulfate (Ventolin Hfa) 60 puff STK-MED ONCE 03/17/21 11:29 03/17/21 11:29 DC Alteplase, Recombinant (Cathflo For Central Catheter Clearance) 1 mg 1X ONCE 02/27/21 14:30 02/27/21 14:36 DC 02/27/21 15:19 1 MG Alteplase, Recombinant (Cathflo) 2 mg 1X ONCE 02/27/21 11:00 02/27/21 11:01 DC 02/27/21 11:20 2 MG Amlodipine Besylate (Norvasc) 10 mg DAILY 03/31/21 09:00 04/09/21 07:20 10 MG Atorvastatin Calcium (Lipitor) 40 mg HS 02/08/21 21:00 04/09/21 21:47 40 MG Atropine Sulfate (ATROPINE 0.5mg SYRINGE) 0.5 mg PRN Q5MIN PRN 02/16/21 12:00 Azithromycin 250 mg/Sodium Chloride 250 ml @ 250 mls/hr Q24H 02/14/21 13:30 02/18/21 14:29 DC 02/18/21 11:51 250 MLS/HR Benzonatate (Tessalon Perle) 100 mg [id number] 02/10/21 23:30 02/17/21 10:45 DC 02/16/21 22:07 100 MG Bupivacaine HCl/ Epinephrine Bitart (Sensorcain-Epi 0.5% Kit) 30 ml STK-MED ONCE 03/27/21 10:05 03/27/21 10:05 DC 03/27/21 13:12 16 ML Bupivacaine HCl/ Epinephrine Bitart (Sensorcain-Epi 0.5%-1:[id number] Mpf) 30 ml STK-MED ONCE 03/17/21 10:47 03/17/21 10:47 DC Carvedilol (Coreg) 6.25 mg BIDWMEALS 02/08/21 20:30 02/23/21 15:50 DC 02/23/21 08:06 6.25 MG Cefazolin Sodium/ Dextrose (Ancef 2gm Premix) 2 gm STK-MED ONCE 03/23/21 13:00 03/24/21 11:58 DC Ceftriaxone Sodium (Rocephin) 1 gm Q24H 02/14/21 13:00 02/23/21 07:34 DC 02/22/21 12:42 1 GM Cellulose (Surgicel Fibrillar 1x2) 1 each STK-MED ONCE 03/17/21 10:47 03/17/21 10:47 DC 03/17/21 11:56 1 EACH Daptomycin 480 mg/ Sodium Chloride 50 ml @ 100 mls/hr QMWF 03/23/21 16:00 03/26/21 10:29 DC 03/25/21 19:52 100 MLS/HR Daptomycin 500 mg/ Sodium Chloride 50 ml @ 100 mls/hr Q48H 04/02/21 10:00 04/09/21 10:52 DC 04/08/21 13:14 100 MLS/HR Dexamethasone Sodium Phosphate (Decadron) 2 mg 1X ONCE 02/27/21 09:00 02/26/21 07:15 DC Dexmedetomidine HCl 400 mcg/ Sodium Chloride 100 ml @ 0 mls/hr CONT PRN 02/27/21 09:45 04/13/21 03:52 11.4 MLS/HR Dextrose (Dextrose 50%-Water Syringe) 12.5 gm PRN Q15MIN PRN 03/01/21 13:00 03/01/21 12:55 12.5 GM Diphenhydramine HCl (Benadryl) 25 mg 1X PRN PRN 03/17/21 13:30 03/18/21 13:29 DC Docusate Sodium (Colace Solution) 100 mg BID 02/23/21 12:00 04/09/21 21:47 100 MG Docusate Sodium (Colace) 100 mg PRN DAILY PRN 02/07/21 08:45 02/23/21 10:47 DC Enalaprilat (Vasotec Inj) 0.625 mg Q6HRS 02/08/21 16:15 02/09/21 16:01 DC 02/09/21 13:42 0.625 MG Enoxaparin Sodium (Lovenox 30mg Syringe) 30 mg Q24H 03/08/21 09:00 03/12/21 15:38 DC 03/12/21 09:04 30 MG Enoxaparin Sodium (Lovenox 40mg Syringe) 40 mg BID 02/09/21 09:00 03/08/21 13:56 DC 03/08/21 08:26 40 MG Enoxaparin Sodium (Lovenox Per Pharmacy Prophylaxis Dosing) 1 each PRN DAILY PRN 02/09/21 06:45 03/12/21 15:38 DC Ephedrine Sulfate (ePHEDrine PF IN SALINE SYRINGE) 50 mg STK-MED ONCE 03/17/21 10:56 03/17/21 10:56 DC Famotidine (Pepcid Vial) 20 mg DAILY 03/10/21 09:00 04/12/21 10:04 20 MG Fentanyl Citrate 30 ml @ 0 mls/hr CONT PRN PRN 04/08/21 07:15 04/12/21 15:11 1.25 MLS/HR Fentanyl Citrate (Fentanyl 2ml Vial) 100 mcg STK-MED ONCE 03/27/21 13:18 03/27/21 13:18 DC Fluconazole/ Sodium Chloride 100 ml @ 100 mls/hr Q24H 03/07/21 09:00 03/17/21 08:03 DC 03/16/21 08:29 100 MLS/HR Fluoxetine HCl (PROzac) 20 mg 1X ONCE 04/10/21 11:15 04/10/21 11:34 DC Furosemide (Lasix) 40 mg 1X ONCE 03/29/21 15:00 03/29/21 15:02 DC 03/29/21 15:22 40 MG Glycerin/ Hypromellose/ Polyethylene (Artificial Tears) 1 drop PRN Q1HR PRN 02/17/21 10:00 04/05/21 08:02 1 DROP Glycopyrrolate (Robinul) 1 mg STK-MED ONCE 03/27/21 14:07 03/27/21 14:07 DC Guaifenesin (Robitussin Dm) 10 ml PRN Q6HRS PRN 02/10/21 23:30 02/16/21 09:06 10 ML Haloperidol Lactate (Haldol Inj) 5 mg Q8HRS 04/01/21 11:30 04/07/21 14:58 DC 04/07/21 05:51 5 MG Heparin Sodium (Porcine) (Heparin Sodium) 5,000 unit Q8HRS 03/13/21 06:00 04/13/21 05:41 5,000 UNIT Hydralazine HCl (Apresoline Inj) 10 mg PRN Q4HRS PRN 02/11/21 12:15 04/10/21 05:55 10 MG Hydromorphone HCl (Dilaudid) 0.5 mg PRN Q10MIN PRN 03/27/21 06:00 03/28/21 05:59 DC Info (PHARMACY MONITORING -- do not chart) 1 each PRN DAILY PRN 04/10/21 13:30 Cancel Insulin Glargine (Lantus Syringe) 5 unit BID 03/06/21 09:00 04/12/21 21:35 5 UNIT Insulin Human Lispro (HumaLOG) 12 units Q6HRS 02/20/21 12:00 02/28/21 15:38 DC 02/27/21 05:41 12 UNITS Insulin Human Regular 100 ml @ 10 mls/hr 1X ONCE 02/07/21 06:30 02/07/21 16:54 DC 02/07/21 09:31 6.5 MLS/HR Insulin Human Regular 100 unit/ Sodium Chloride 101 ml @ 0 mls/hr CONT PRN PRN 02/07/21 06:00 02/07/21 16:54 DC Labetalol HCl (Normodyne Iv Push) 10 mg PRN Q2HR PRN 02/08/21 00:45 04/12/21 14:29 10 MG Lactobacillus Rhamnosus (Culturelle) 1 cap BID 02/16/21 21:00 02/17/21 10:45 DC 02/16/21 22:02 1 CAP Lidocaine HCl (Buffered Lidocaine 1%) 3 ml STK-MED ONCE 03/07/21 13:25 03/07/21 13:25 DC Linezolid (Zyvox) 600 mg BID 03/05/21 09:00 03/12/21 07:00 DC 03/11/21 20:33 600 MG Linezolid/Dextrose 300 ml @ 300 mls/hr Q12HR 04/09/21 12:00 04/11/21 12:54 DC 04/11/21 09:59 300 MLS/HR Lisinopril (Prinivil) 20 mg DAILY 02/17/21 09:00 03/09/21 10:43 DC 02/27/21 09:10 20 MG Lorazepam (Ativan Inj) 1 mg PRN Q2HR PRN 04/10/21 11:15 Magnesium Sulfate 50 ml @ 25 mls/hr PRN DAILY PRN 04/04/21 13:00 Meropenem 1 gm/ Sodium Chloride 100 ml @ 200 mls/hr Q24H 03/18/21 17:00 04/10/21 11:57 DC 04/09/21 17:00 200 MLS/HR Methylprednisolone Sodium Succinate (SOLU-Medrol 125MG VIAL) 80 mg Q8HRS 02/25/21 09:00 02/26/21 07:09 DC 02/26/21 05:52 80 MG Metoclopramide HCl (Reglan Vial) 10 mg PRN Q6HRS PRN 02/08/21 00:45 02/12/21 15:51 10 MG Micafungin Sodium 100 mg/Dextrose 100 ml @ 100 mls/hr Q24H 03/21/21 18:00 03/25/21 10:27 DC 03/24/21 16:36 100 MLS/HR Midazolam HCl 100 ml @ 0 mls/hr CONT PRN 02/17/21 10:00 03/20/21 17:18 5 MLS/HR Morphine Sulfate (Morphine Sulfate) 1 mg PRN Q10MIN PRN 03/27/21 06:00 03/28/21 05:59 DC Multi-Ingred Cream/Lotion/Oil/ Oint (Artificial Tears Eye Ointment) 1 reji PRN Q1HR PRN 03/17/21 17:30 03/20/21 15:55 1 REJI Multivitamins/ Minerals Therapeutic (Centrum Multivit-Mineral Liq) 5 ml DAILY 03/14/21 09:00 04/09/21 07:21 5 ML Naloxone HCl (Narcan) 0.4 mg PRN Q2MIN PRN 03/27/21 14:30 Neostigmine [place] (Neostigmine Methylsulfate) 5 mg STK-MED ONCE 03/27/21 14:06 03/27/21 14:07 DC Norepinephrine Bitartrate 8 mg/ Dextrose 258 ml @ 21.711 mls/ hr CONT PRN 03/06/21 13:45 03/19/21 18:45 23.3 MLS/HR Nystatin (Nystop) 1 reji BID 03/02/21 21:00 04/12/21 21:00 1 REJI Ondansetron HCl (Zofran Odt) 4 mg 1X ONCE 02/06/21 23:30 02/06/21 23:31 DC 02/06/21 23:57 4 MG Ondansetron HCl (Zofran) 4 mg 1X ONCE 02/07/21 20:00 02/07/21 20:07 DC 02/07/21 20:06 4 MG Phenylephrine HCl (PHENYLEPHRINE in 0.9% NACL PF) 1 mg STK-MED ONCE 03/27/21 13:46 03/27/21 13:46 DC Piperacillin Sod/ Tazobactam Sod (Zosyn Per Pharmacy) 1 each PRN DAILY PRN 02/23/21 07:45 03/17/21 10:04 DC Piperacillin Sod/ Tazobactam Sod 2.25 gm/Sodium Chloride 50 ml @ 100 mls/hr Q8HRS 03/07/21 14:00 03/17/21 08:03 DC 03/17/21 05:58 100 MLS/HR Piperacillin Sod/ Tazobactam Sod 3.375 gm/Sodium Chloride 50 ml @ 100 mls/hr Q6HRS 03/14/21 18:00 Cancel Piperacillin Sod/ Tazobactam Sod 4.5 gm/Sodium Chloride 100 ml @ 200 mls/hr Q6HRS 02/23/21 08:00 03/07/21 08:18 DC 03/07/21 06:12 200 MLS/HR Potassium Chloride/Water 100 ml @ 100 mls/hr Q1H 04/04/21 14:00 04/04/21 15:59 DC 04/04/21 15:12 100 MLS/HR Potassium Chloride (Klor-Con) 40 meq 1X ONCE 02/13/21 12:00 02/13/21 12:01 DC 02/13/21 13:21 40 MEQ Prochlorperazine Edisylate (Compazine) 5 mg PACU PRN PRN 03/27/21 06:00 03/28/21 05:59 DC Propofol (Diprivan) 200 mg STK-MED ONCE 03/27/21 12:02 03/27/21 12:03 DC Remdesivir 100 mg/ Sodium Chloride 230 ml @ 460 mls/hr Q24H 02/15/21 12:00 02/18/21 12:29 DC 02/18/21 11:52 460 MLS/HR Remdesivir 200 mg/ Sodium Chloride 210 ml @ 210 mls/hr 1X ONCE 02/11/21 13:00 02/12/21 11:55 DC 02/11/21 14:33 210 MLS/HR Ringer's Solution 1,000 ml @ 30 mls/hr Q24H 03/27/21 06:00 03/27/21 17:59 DC Rocuronium [place] (Zemuron) 50 mg STK-MED ONCE 03/27/21 13:16 03/27/21 13:17 DC Sennosides (Senna) 17.2 mg PRN BID PRN 02/07/21 08:45 02/22/21 08:29 17.2 MG Sevoflurane (Ultane) 60 ml STK-MED ONCE 03/27/21 14:19 03/27/21 14:20 DC Sodium Chloride 500 ml @ 500 mls/hr 1X ONCE 04/08/21 16:45 04/08/21 17:44 DC 04/08/21 17:10 500 MLS/HR Sodium Chloride (Normal Saline Flush) 3 ml QSHIFT PRN 03/27/21 14:30 Succinylcholine Chloride (Anectine) 200 mg STK-MED ONCE 02/17/21 10:00 02/25/21 08:40 DC Vancomycin HCl (Vanco Per Pharmacy) 1 each PRN DAILY PRN 03/04/21 18:30 03/05/21 08:59 DC 03/04/21 19:47 1 EACH Vancomycin HCl (Vancomycin Trough Level) 1 each 1X ONCE 03/06/21 07:00 03/06/21 07:01 Cancel Vancomycin HCl 1.5 gm/Sodium Chloride 500 ml @ 250 mls/hr Q12H 03/05/21 07:30 03/05/21 08:58 DC Vancomycin HCl 1 gm/Sodium Chloride 250 ml @ 250 mls/hr Q12H 03/04/21 20:00 UNV Vancomycin HCl 2 gm/Sodium Chloride 500 ml @ 250 mls/hr 1X ONCE 03/04/21 19:00 03/04/21 20:59 DC 03/04/21 19:26 250 MLS/HR Vecuronium [place] (Norcuron Bolus) 6 mg PRN Q2HRS PRN 03/06/21 14:30 03/16/21 10:16 5 MG Vitamin A/Vitamin D (Vitamin A & D Ointment) 1 reji PRN Q1HR PRN 03/10/21 01:45 03/20/21 09:34 1 REJI Zolpidem Tartrate (Ambien) 5 mg PRN QHS PRN 04/10/21 11:15 Lab Laboratory Tests Test 04/12/21 13:01 04/12/21 23:45 04/13/21 05:30 04/13/21 05:38 Glucose (Fingerstick) 226 mg/dL (70-99) 318 mg/dL (70-99) 171 mg/dL (70-99) Sodium Level 144 mmol/L (136-145) Potassium Level 3.7 mmol/L (3.5-5.1) Chloride Level 103 mmol/L (98-107) Carbon Dioxide Level 25 mmol/L (21-32) Anion Gap 16 (6-14) Blood Urea Nitrogen 62 mg/dL (7-20) Creatinine 3.0 mg/dL (0.6-1.0) Estimated GFR (Cockcroft-Gault) 16.9 Glucose Level 178 mg/dL (70-99) Calcium Level 10.0 mg/dL (8.5-10.1) Results All relevant outside records, renal labs, imaging studies, telemetry/EKG's were reviewed. Justicifation of Admission Dx: Justifications for Admission: Justification of Admission Dx: N/A GIGI CARMEN MD Apr 13, 2021 09:52
[2021-04-13] MEDS: FAMOTIDINE 20 MG/2 ML VIAL IVP SCH (10:25)
[2021-04-13] MEDS: INSULIN GLARGINE SYRINGE. SQ SCH ×2 (10:45→21:31)
[2021-04-13] MEDS: LABETALOL 20 MG/4 ML DISP.SYRIN. IVP PRN ×2 (11:43→17:27)
[2021-04-13] MEDS: hydrALAZINE 20 MG/ML VIAL. IVP PRN ×2 (11:44→17:25)
--- NOTE | 2021-04-13 12:26 | PDOC ---
SURGICAL PROGRESS NOTE DATE: 04/13/21 TIME: 12:20 Subjective speech eval --if fails, already d/w Dr De La Torre, attempt G tube replacement, however may likely require return to OR to replace Vital Signs Vital Signs Date Time Temp Pulse Resp B/P (MAP) Pulse Ox O2 Delivery O2 Flow Rate FiO2 04/13/21 11:44 199/97 04/13/21 11:43 125 04/13/21 11:00 33 100 Tracheal Collar 04/13/21 08:19 8.0 04/13/21 08:00 99.7 99.7 I&O Intake and Output 04/13/21 07:00 Intake Total 132.86 ml Output Total 1080 ml Balance -947.14 ml IV Total 132.86 ml Output Urine Total 1080 ml General: Alert, Oriented X3, Cooperative Abdomen: Soft, Other (ND) Labs Laboratory Tests Test 04/11/21 18:08 04/11/21 23:31 04/12/21 05:07 04/12/21 13:01 Glucose (Fingerstick) 305 mg/dL (70-99) 291 mg/dL (70-99) 350 mg/dL (70-99) 226 mg/dL (70-99) Test 04/12/21 23:45 04/13/21 05:30 04/13/21 05:38 Glucose (Fingerstick) 318 mg/dL (70-99) 171 mg/dL (70-99) Sodium Level 144 mmol/L (136-145) Potassium Level 3.7 mmol/L (3.5-5.1) Chloride Level 103 mmol/L (98-107) Carbon Dioxide Level 25 mmol/L (21-32) Anion Gap 16 (6-14) Blood Urea Nitrogen 62 mg/dL (7-20) Creatinine 3.0 mg/dL (0.6-1.0) Estimated GFR (Cockcroft-Gault) 16.9 Glucose Level 178 mg/dL (70-99) Calcium Level 10.0 mg/dL (8.5-10.1) Laboratory Tests Test 04/12/21 13:01 04/12/21 23:45 04/13/21 05:30 04/13/21 05:38 Glucose (Fingerstick) 226 mg/dL (70-99) 318 mg/dL (70-99) 171 mg/dL (70-99) Sodium Level 144 mmol/L (136-145) Potassium Level 3.7 mmol/L (3.5-5.1) Chloride Level 103 mmol/L (98-107) Carbon Dioxide Level 25 mmol/L (21-32) Anion Gap 16 (6-14) Blood Urea Nitrogen 62 mg/dL (7-20) Creatinine 3.0 mg/dL (0.6-1.0) Estimated GFR (Cockcroft-Gault) 16.9 Glucose Level 178 mg/dL (70-99) Calcium Level 10.0 mg/dL (8.5-10.1) Problem List Problems Medical Problems: (1) Ketoacidosis Status: Acute Assessment/Plan awaiting speech eval, g tube replacement pending eval, IR eval Justicifation of Admission Dx: Justifications for Admission: Justification of Admission Dx: N/A RACHEL CADE APRN Apr 13, 2021 12:26
[2021-04-13] MEDS ORDERED: IOHEXOL 240 MG/ML 50ML VIAL. ONE (12:42)
[2021-04-13] MEDS ORDERED: ONDANSETRON PF 4 MG/2 ML VIAL. ONE (13:33)
[2021-04-13] MEDS: ONDANSETRON PF 4 MG/2 ML VIAL. IVP PRN (13:35)
[2021-04-13] MEDS ORDERED: CONTRAST GIVEN. MC PRN (13:45)
[2021-04-13] MEDS ORDERED: IOHEXOL 240 MG/ML 50ML VIAL. IJ ONE (13:45)
[2021-04-13] MEDS ORDERED: MIDAZOLAM HCL/PF 2 MG/2 ML VIAL. ONE (13:51)
[2021-04-13] MEDS ORDERED: fentaNYL PF VIAL 100 MCG/2 ML VIAL ONE (13:51)
[2021-04-13] MEDS ORDERED: MIDAZOLAM HCL/PF 2 MG/2 ML VIAL. IV ONE (14:00)
[2021-04-13] MEDS ORDERED: fentaNYL PF VIAL 100 MCG/2 ML VIAL IV ONE (14:00)
[2021-04-13] MEDS: fentaNYL 25MCG/HR PATCH 1 PATCH PATCH.TD72 TD SCH (14:28)
--- NOTE | 2021-04-13 14:28 | PDOC ---
[facility] PROGRESS NOTE Date of Service DOS: DATE: 04/13/21 TIME: 14:26 Chief Complaint Chief Complaint COVID-19 respiratory failure DKA Hypotension Nausea Vomiting Combined metabolic and respiratory acidosis Acute electrolyte derangementhyponatremia, hypochloremia due to volume depletion Hyperglycemia BOB due to ATN, requiring dialysis Erythrocytosis Candiduria Sacral decubitus ulcer S/P Trach on (03/17/21) Trach cultures positive for [place] albicans and now acinebacter ursungi History of Present Illness History of Present Illness 04/13/2021 Patient seen and examined in the ICU She is pleasantly confused Sedated with Precedex and fentanyl I discussed with the speech therapist the patient has no laryngeal movement Now she is n.p.o. again Going for new PEG placement in interventional radiology hopefully later today Her trach is clean Chart reviewed Discussed with RN 04/12/2021 Patient seen and examined in the ICU Her is present today and seems to be good support for her Chart reviewed Discussed with RN Still sedated with Precedex and fentanyl but awake 04/11/2021 Patient seen and examined in the ICU She remains quite confused currently sedated Chart reviewed Discussed with RN Had some nausea vomiting last night Pulled out her PEG yesterday Currently on fentanyl and Precedex IV Zyvox hanging 04/10/2021 Patient seen and examined in the ICU She is pleasantly confused Has a trach shield in place Discussed with RN Chart reviewed We are adding in some as needed Ativan and scheduled Prozac Ms Borges is a 46 year old female who presented with nausea/vomiting since 7 AM 02/06/2021 in the morning. Patient stated that her recently tested positive for Covid. She states that he "coughed in my face because he thought it was funny." She reports subjective fevers and chills and nausea/vomiting. Denies sore throat, cough, shortness of breath. No chest pain. Does have some upper abdominal discomfort after vomiting, that she attributes to muscular strain. She was not vaccinated for Covid. 02/08: No acute events overnight. Patient seen and examined bedside and resting comfortably. Continues to complain of nausea not able to tolerate any diet at this time. Saturating 98% on room air. Patient's chart, labs, images were reviewed and discussed with RN 02/09: Afebrile, currently breathing on room air. Still with complaints of nausea and vomiting x3 today. States that she has history of similar symptoms that have been mildly improved with IV Dilaudid. 02/10: Patient febrile today with T-max 102.2 F. She still admits to nausea, denies any further vomiting. We will continue to provide supportive care and monitor for any recurrent fevers overnight. Patient continues to improve may discharge tomorrow to continue self-isolation. 02/11: Febrile overnight, T-max 102.3 F. She did become hypoxic overnight, currently breathing on 4 L nasal cannula. Also admits to associated vomiting or diarrhea overnight. Discussed with RN, will initiate remdesivir and closely monitor LFTs. IV Decadron, and prophylactic antibiotics. 02/12: Low-grade fever overnight, T-max 99.7. Currently breathing on room air. Will discontinue remdesivir, steroids, and antibiotics; will observe overnight. Still with complaints of vomiting x1 and diarrhea. We will continue to provide supportive care and hope to discharge in the next day or so. 02/13: Afebrile. Still complains of intermittent diarrhea. At the time of my evaluation she was breathing on 6 L nasal cannula; this is somewhat misleading as patient states that she did not feel short of breath but was placed on 6 L by nursing staff overnight. 02/14: Afebrile, currently breathing on 8 L nasal cannula. There has been some misleading documentation, chart oxygen this patient is requiring. Discussed with RN, will resume remdesivir to complete total of 5 days. Continue to monitor LFTs. Will add steroids, Rocephin, and azithromycin. 02/15: Afebrile. Became much more hypoxic overnight, requiring BiPAP. At the time of my evaluation she is still breathing on BiPAP. Consultation was placed to pulmonology. Had discussion with Dr. Myrick about initiating Tocilizumab 02/16: No acute events overnight. Patient becoming more hypoxic saturating 94% and requiring BiPAP. Patient will be transferred to the ICU at this time. For worsening clinical status. Discussed with pulmonary. Patient's chart, labs, images were reviewed and discussed with RN 02/17: Transferred to ICU yesterday afternoon. Seen and examined at bedside she remains on 100% FiO2 on BiPAP. Respirations do appear somewhat labored. Suspect intubation may be impending. We will closely monitor. Increase lisinopril to 20 today. 02/18: Patient required intubation yesterday afternoon. Saw and examined this morning. She is intubated and sedated. Increase insulin today. Covid protocol ordered. Wean as tolerated. Plan of care discussed with bedside nurse. 02/19: Bedside. She remains intubated and sedated. Continue Covid protocol. Wean oxygen sedation as tolerated. Pulmonary following. Plan of care discussed with bedside RN. 02/20: Patient seen and examined at bedside. She remains intubated and sedated. No major clinical changes. Continue current treatment. Pulmonary following. Plan of care discussed with bedside RN. 02/21: Patient seen and examined at bedside. Remains intubated and sedated date and admission clinical changes. Increase free water flushes today due to hypernatremia. Plan of care discussed with bedside nurse. 02/22: Patient seen and examined at bedside. O2 requirement actually improving, although remains intubated. Possible SBT in the coming days. Hypernatremia improving. Plan of care discussed bedside RN. 02/23: Patient remains in ICU on ventilator with FiO2 100%, PEEP 7. Repeat chest x-ray yesterday showed diffuse bilateral pulmonary opacities with no interval improvement. Will discontinue Rocephin and initiate Zosyn. We will continue IV steroids for a full 10-day course 02/24: Afebrile. On vent with FiO2 40%, PEEP 6. Her Coreg has been held due to persistent bradycardia. No documented history of systolic heart failure or previous echocardiogram. Will need to obtain echocardiogram prior to discharge. Continue IV steroids and antibiotics. 02/25: Afebrile. Remains ventilated with FiO2 45%, PEEP 6. Chest x-ray today showed slight improvement of the pulmonary infiltrates, no pneumothorax. Comple susanna 10-day course of IV Decadron. Will initiate slow Solu-Medrol taper. Continue IV Zosyn. Continue supportive care. 02/26: Afebrile. On vent with FiO2 45%, PEEP 6. Completed 10 days of IV Decadron. Will continue IV Zosyn. Continue supportive care. Critical care time 30 minutes spent reviewing charts, reviewing imaging, reviewing labs, discussion with RN. 02/27: Afebrile. On vent with FiO2 45%, PEEP 6. Completed 10 days of steroids and completed remdesivir. Continue with IV Zosyn. CPAP trial yesterday. Continue NG tube and supportive care. 02/28:. Patient remains on vent with FiO2 40%, PEEP 5. Afebrile. Completed steroids and remdesivir. Some noted hypoglycemia overnight, will de-escalate basal insulin. Continue IV Zosyn. Ventilator management per pulmonology. Continue NG tube and supportive care. 03/01: On vent with FiO2 40%, PEEP 5. Afebrile. Completed steroids and re mdesivir. Blood glucose well controlled. Continue empiric antibiotics with Zosyn. Ventilator management per pulmonology. Continue NG tube and supportive care. 03/02: No acute events overnight. Patient hypotensive the morning due to oversedation. Will wean off sedation and keep antihypertensive medications on board. Currently saturating 100% on vent settings of 18/450/40/5. Will attempt spontaneous breathing trial today to see how patient does. 03/03: No acute events overnight. Patient saturating 98% on vent settings of 18/450/40/5. Will defer spontaneous breathing trials to pulmonary at this time. Patient's chart, labs, images were reviewed and discussed with RN 03/04: No acute events overnight. Patient saturating 9 9% on vent settings of 18/450/30/5. Patient currently is unable to tolerate weaning. Per pulmonary. Patient's chart, labs, images were reviewed and discussed with RN 03/05: No acute events overnight. Patient is saturating 97% on vent settings of 18/450/55/5. Her FiO2 needs to be increased due to abnormal ABG with 7.3 7/42/58/24. Patient's chart, labs, images were reviewed and discussed with RN 03/06: No acute events overnight. Patient saturating 94% on vent settings of 18/450/55/5. Chest x-ray showing increase in pulmonary infiltrates. Wound care is consulted for decubitus ulcer patient's chart, labs, images were reviewed and discussed with RN 03/07: No acute events overnight. Patient saturating 94% on vent settings of 20/450/70/8. Patient now heading into renal failure with her creatinine bumped up from 1.5-4.2. Decreased urine output. Plan for hemodialysis today and temporary catheter placement and nephrology is consulted. 03/08: No acute events overnight. Patient did have a nausea vomiting episode and tube feeds were held. KUB repeat shows NG tube still in the stomach. Will resume tube feeds at trickle and advance to goal today. Will start hemodialysis soon. 03/09: Seen on vent /60%/8. ABG 7.2 WBC 11.4, Hb 7.4, platelets 188, NA 131, K4.9, BUN 48, CR 51, glucose 199, phosphorus 7.9, mag 2.2, AST 265 ALT 219, albumin 1.1. Chest radiograph appears unchanged from prior. Dialysis x1 today 03/10: Afebrile. Seen on vent, /60/7 with ABG 7.3 . Tolerated dialysis well on 03/09. LFTs similar. 03/11: Afebrile. Seen on vent, sedated. Still requiring Levophed for BP support. WBC 16.7, Hb 8.1, NA 130, ABG 7.3 on 55% FiO2 PEEP 6. On Zosyn and Zyvox Diflucan. Dialysis today 03/12: Afebrile. Still requiring Levophed for BP support sedated with Versed febrile Precedex. WBC 16.1, Hb 8.5, platelets 185, NA 133. Trach plan tentatively 03/17. O2 saturations 93% on 50% FiO2 PEEP 6. ABG 7. On Zosyn and Zyvox Diflucan. 03/13: Afebrile. Still on Levophed for BP support lightly sedated. 7. on 45% FiO2. Plan for dialysis today. On Zosyn and Zyvox Diflucan. More swollen today. 03/14: Afebrile. Weaning down off Levophed. WBC 14.9 NA 132. O2 saturations 92% on 45% FiO2 PEEP 5. Afebrile. O2 saturations 91% on FiO2 45% PEEP 6. Continued on Zosyn and Zyvox Diflucan. Tentative trach planned 03/17/2021 CC time 31 minutes 03/16/21: Patient seen and examined in ICU. Periorbital as well as upper and lower extremity edema noted. OG feed running at 30cc/hr. Still on vent on pressure control with a rate of 24 with 45% FiO2. Patient has rectal bag. Currently she has 98% O2 sat. Currently sedated with Dexmedetomidine, Propofol, Versed, and Fentanyl. Discussed with RN. Chart reviewed. 03/17/21: Patient was seen and examined in the ICU today. Periorbital edema as well as abdominal and mons pubis edema was noted. Patient still on vent on pressure control with Fi02 of 45% plus 6 PEEP. Patient had rectal bag. Currently sedated on Dexmedetomidine, Propofol, Versed, and Fentanyl. Discussed with RN. Chart reviewed. 03/18/21: Patient seen and examined in ICU. On vent via trach that was placed yesterday. Vent settings are Pressure Control of 40 with FiO2 of 45% and 6 PEEP. Trach clean and dry. Orbital swelling still present. Pupils are sluggish. Patient on TPN running at 30cc/hr. Kern to bedside and rectal bag in place. Current O2 sat at 94%. Sedated on Dexmedetomidine, Propofol, Versed, and Fenta nyl. Discussed with RN. Chart reviewed. 03/19/21: Patient was seen and examined in the ICU today. Currently on vent via trach on pressure control of 42, rate of 24, FiO2 of 45%, and 6 PEEP. O2 sat is at 97% while patient is being examined. Trach is clean and dry. PICC line is in place on right arm. Periorbital swelling has decreased slightly since examined yesterday. Patient is sedated on Dexmedetomidine, Propofol, Versed, and Fentanyl. Discussed with RN. Chart reviewed. 03/20/21: Patient seen and examined in the ICU. Periorbital edema is slightly decreased since yesterday. O2 sat while being examined was 93%. NG tube in place and running at 30cc/hr. Patient on vent via trach on pressure control of 40 with FiO2 of 45 and rate of 24. Sedated on Dexmedetomidine, Propofol, Versed, and Fentanyl. PICC line in place. Kern to bedside. Rectal bag present. Discussed with RN. Chart reviewed. 03/21/21: Patient was seen and examined in the ICU today. She was semi-sedated.. She was on Dexmedetomidine and Fentanyl. We are holding the Propofol. Her eyes were periodically open but she was not making meaningful eye contact or tracking. On vent via trach with pressure control of 40 and FiO2 at 45. Rate was 24. PEEP was 5. Trach was clean and dry. While being examined, her O2 sat was 94%. Rectal bag and Kern to bedside in place. NG tube in place and feeding at 30cc/hr. IV fluids still running. Levophed has been stopped. Discussed with RN. Chart reviewed. 03/22/21: Patient was seen and examined in the ICU. She was semi-sedated on Propofol and Dexmedetomidine. Her eyes were open but she did not make meaningful eye contact. Her blood pressure was elevated (198/102) while being examined and she had just been given hydralazine to lower it. There are plans to place a PEG tube tomorrow. Currently on vent via trach on pressure control of 40 with FiO2 of 45%, 5 PEEP, and a rate of 24. Current O2 sat is 98%. She is feeding through an NG tube at 30cc/hr. Rectal bag and Kern to bedside present. SCDs on patient for DVT prophylaxis. She did not do her daily dialysis today but the plan is to start back on that tomorrow. Discussed with RN. Chart reviewed. 03/23/2021: Patient remains in ICU on ventilator. FiO2 40%, PEEP 5. Trach cultures positive for [place] albicans and acinebacter ursungi. We will continue treatment with IV antibiotics and micafungin, per ID. HD per nephrology. Plans for PEG tube placement today. 30 minutes critical care time was spent reviewing charts, reviewing labs, reviewing imaging, discussion with RN. 03/24/2021: Afebrile. On vent with FiO2 45%, PEEP 5. Had attempted PEG placement per GI yesterday, but unable to locate safe path for PEG; will consider surgical opinion. Once PEG is in place she should be stable for LTAC transfer when accepted. Continue antibiotics, per ID. 30 minutes critical care time was spent reviewing charts, reviewing labs, reviewing imaging, discussion with RN. 03/25/2021: Febrile overnight with T-max 101.5 F. On vent with FiO2 45%, PEEP 5. Surgery has been consulted with tentative plans for laparoscopic versus open gastrostomy placement tomorrow. Trach cultures positive for [place] albicans and now acinebacter ursungi; will continue antibiotic management, per ID. Hemodialysis, per nephrology. Patient needing LTAC placement, but currently without benefits. general foundry worker following for discharge planning. Critical care time 30 minutes spent reviewing charts, reviewing labs, reviewing imaging, discussion with RN. 03/26/2021: Febrile today with T-max 100.5 F. Awake on vent with FiO2 45%, PEEP 5. When I ask if she remembers any she nods. G-tube placement scheduled for tomorrow, per general surgery. Chest x-ray today showed slight interval increase in diffuse infiltrate. Continue antibiotic management, per ID. Hemodialysis per nephrology. Reportedly did not tolerate CPAP trial this morning. general foundry worker following for LTAC placement. Critical care time 30 minutes spent reviewing charts, reviewing labs, reviewing imaging, discussion with RN. 03/27/2021: On vent with FiO2 45%, PEEP 5. Afebrile today. Continue treatment of acute renal failure requiring HD, per nephrology. Monitor kidney function for recovery. G-tube placement scheduled for today, per general surgery. Likely LTAC placement soon, but this is been a difficult as she is self-pay without benefits; social media editor following. Critical care time 30 minutes spent reviewing charts, reviewing labs, reviewing imaging, discussion with RN. 03/28/2021: Afebrile. On vent with FiO2 40%, PEEP 5. Had laparoscopic gastrostomy tube placed yesterday, per general surgery. Continue treatment of acute renal failure requiring HD, per nephrology. Continue IV antibiotics, per ID. Likely LTAC placement soon, but this is been a difficult as she is self-pay without benefits; social media editor following. Critical care time 30 minutes spent reviewing charts, reviewing labs, reviewing imaging, discussion with RN. 03/29/2021: Afebrile. On vent with FiO2 45%, PEEP 5. S/P laparoscopic gastrostomy tube; tube feeds running. HD, per nephrology. Continue meropenem, per ID. Anticipate LTAC placement soon now that PEG has being placed; social media editor helping in these regards. Critical care time 30 minutes spent reviewing charts, reviewing labs, reviewing imaging, discussion with RN. 03/30 No major events or clinical changes overnight. Patient evaluated at bedside this morning on trach and G-tube. Tolerating these well. Has been working on insurance for patient for placement as she will need long-term care. Guarded prognosis. Plan of care discussed with bedside nurse. 03/31 No major clinical changes. Remains trached. Sedated. Continue current plan. 04/01 No changes. Patient resting in bed when evaluated sedated. is supposed to be working on insurance for placement for the patient. Otherwise no changes. 04/02 Patient febrile overnight, daptomycin added this morning per infectious disease. Otherwise no major clinical changes. Awaiting insurance. Infectious disease, pulmonary and renal following. Plan of care discussed with bedside RN. 04/03 Patient undergoing dialysis today. Evaluated at bedside this morning. otherwise continue current plan. supposed working on insurance. 04/04 No major overnight changes. Continue current plan. 04/05 Patient notably more movement this morning eyes open resting in bed otherwise no major changes. Continue current plan. Insurance pending. 04/06 Patient notably more movement this morning eyes open resting in bed current plan. Insurance pending. Continue daptomycin, renal dosing April 02 F/U Blood culture UA urine culture C. diff PCR negative 32 min cc time 04/07 Patient notably more movement this morning eyes open resting in bed current plan. Insurance pending. Continue daptomycin, renal dosing April 02 F/U Blood culture UA urine culture C. diff PCR negative Abnormal chest x-ray consistent with COVID-19 viral pneumonia. Diabetic ketoacidosis--resolved obesity contributing to hypoxia as well. BOB . hemodialysis started 03/07 DVT GI prophylaxis Nutritional support 34 min cc time 04/08 Patient notably more movement this morning eyes open resting in bed current plan. Insurance pending. Continue daptomycin, renal dosing April 02 F/U Blood culture UA urine culture C. diff PCR negative s/p lap G-tube 03/27 Abnormal chest x-ray consistent with COVID-19 viral pneumonia. Diabetic ketoacidosis--resolved obesity contributing to hypoxia as well. BOB . hemodialysis started 03/07 DVT GI prophylaxis Nutritional support Right PICC line February 14 out; left PICC line 04/07/2021 Right IJ HDC clean March 07 32 min cc time 04/09 non Oliguric for past 112 -2 weeks , good response to IV NS bolus .requiring dialysis., currently on MWF schedule, tolerating trach shield well.using her speaking valve./ resting in bed current / states she feels better Start iv Zyvox Cont Meropenem DC daptomycin post PICC line exchange aspiration precautions C. diff PCR negative F/U Blood culture UA urine culture s/p lap G-tube 03/27 Abnormal chest x-ray consistent with COVID-19 viral pneumonia. Diabetic ketoacidosis--resolved obesity contributing to hypoxia as well. BOB . hemodialysis started 03/07 DVT GI prophylaxis Nutritional support Right PICC line February 14 out; left PICC line 04/07/2021 Right IJ HDC clean March 07 34 min cc time Vitals/I&O Vitals/I&O: Vital Signs Date Time Temp Pulse Resp B/P (MAP) Pulse Ox O2 Delivery O2 Flow Rate FiO2 04/13/21 14:09 136 24 100 Tracheal Collar 9.0 04/13/21 14:03 130/101 (111) 04/13/21 08:00 99.7 99.7 I & O 04/12/21 04/12/21 04/13/21 15:00 23:00 07:00 Intake Total 87.86 ml 45 ml Output Total 485 ml 290 ml 305 ml Balance -485 ml -202.14 ml -260 ml Physical Exam Physical Exam: GENERAL: Awake, pleasantly confused HEENT: Normocephalic, atraumatic. Anicteric. Slight bilateral periorbital edema. Latter improving Neck right IJ HDC clean Trach + capped LUNGS: Rhonchi. HEART: S1, S2. No murmurs. ABDOMEN: Obese, soft. Bowel sounds present. Nontender, nondistended. PEG tube pulled out by patient GENITOURINARY: Kern and fecal tube in place. EXTREMITIES: Edema present no cyanosis. CENTRAL NERVOUS SYSTEM: Intubated. PSYCHIATRIC: Confused Derm has pressure wounds wound pictures noted in chart. Generalized rash, Right PICC line removed; left PICC line 04/07/2021 Right IJ HDC clean March 07 General: Alert, Oriented X3, Cooperative Heart: Regular rate, Normal S1, Normal S2 Lungs: Clear, Other (Has trach in place) Abdomen: Soft, Other (ND) Extremities: No cyanosis, Other (ANASARCA) Skin: No rashes, No significant lesion Labs Labs: Laboratory Tests Test 04/12/21 23:45 04/13/21 05:30 04/13/21 05:38 Glucose (Fingerstick) 318 mg/dL (70-99) 171 mg/dL (70-99) Sodium Level 144 mmol/L (136-145) Potassium Level 3.7 mmol/L (3.5-5.1) Chloride Level 103 mmol/L (98-107) Carbon Dioxide Level 25 mmol/L (21-32) Anion Gap 16 (6-14) Blood Urea Nitrogen 62 mg/dL (7-20) Creatinine 3.0 mg/dL (0.6-1.0) Estimated GFR (Cockcroft-Gault) 16.9 Glucose Level 178 mg/dL (70-99) Calcium Level 10.0 mg/dL (8.5-10.1) Assessment and Plan Assessmemt and Plan Problems Medical Problems: (1) Ketoacidosis Status: Acute COVID-19 respiratory failure DKA Hypotension Nausea Vomiting Combined metabolic and respiratory acidosis Acute electrolyte derangementhyponatremia, hypochloremia due to volume depletion Hyperglycemia BOB due to ATN, requiring dialysis Erythrocytosis Candiduria Sacral decubitus ulcer S/P Trach on (03/17/21) Trach cultures positive for [place] albicans and now acinebacter ursungi Plan Going to interventional radiology today to replace the PEG if possible Kern into the old PEG site for now We will try to transfer out of ICU to the medical floor once off of the sedation Continue Precedex and fentanyl with as needed Ativan Schedule Prozac 20 a day Cardiac monitoring Home meds Trend labs DVT prophylaxis Full code Continue other treatments Appreciate subspecialist input Prognosis guarded but very slowly improving Comment Review of Relevant I have reviewed the following items mazin (where applicable) has been applied. Medications: Current Medications Medications (Trade) Dose Ordered Sig/Pepe Route PRN Reason Start Time Stop Time Status Last Admin Dose Admin Iohexol (Omnipaque 240 Mg/ml) 50 ml 1X ONCE IJ 04/13/21 13:45 04/13/21 13:46 DC 04/13/21 13:45 Midazolam HCl (Versed) 2 mg 1X ONCE IV 04/13/21 14:00 04/13/21 14:03 DC 04/13/21 13:54 Fentanyl Citrate (Fentanyl 2ml Vial) 100 mcg 1X ONCE IV 04/13/21 14:00 04/13/21 14:03 DC 04/13/21 13:54 Justifications for Admission Other Justification DIANELYS BLACKMON III DO Apr 13, 2021 14:28
--- NOTE | 2021-04-13 16:22 | RAD ---
Fluoroscopically guided replacement of gastrostomy tube through pre-existing tract 04/13/2021 INDICATION: Relatively recently placed surgical gastrostomy tube inadvertently removed approximately 3 days ago. Discussion: Consent: The procedure was explained in its entirety to the patient or the patients designated repres entative by a member of the treatment team, including a discussion of the risks, benefits and commonl y accepted alternatives to the procedure, as well as the expected consequences of no therapy whatsoev er. Discussion of the risks included, but was not limited to, those that are most frequent and thos e that are rare but possibly severe or life-threatening, as well as the possibility of unforeseen com plications. The anterior abdomen was prepped and draped using clean barrier technique. The prior gastrostomy exit site was inspected, without overt infection. The tract was gently probed, under fluoroscopy, with a guidewire and catheter until the gastric lumen was entered. The hydrophilic wire was replaced with an Amplatz wire over which a new 18 Italian gastrostomy tube was placed. Fluoroscopic imaging including the administration of and enteric contrast was performed confirming intragastric positioning. The ret ention balloon was inflated and retracted against the anterior gastric wall. Sterile dressings were a pplied. No immediate complications were identified. Total fluoroscopy time 5.3 minutes Dose area product 55 Subramanian centimeter squared Sedation: The procedure was performed under conscious sedation including continuous cardiopulmonary m onitoring via a dedicated sedation nurse. [id number] sedation time: 20 minutes IMPRESSION: Fluoroscopically guided replacement of percutaneous gastrostomy tube through pre-existing tract Electronically signed by: Owen De La Torre MD (04/13/2021 4:20 PM) [id number]
[2021-04-13] MEDS: PROCHLORPERAZINE 10 MG/2 ML VIAL. IV PRN (17:24)
--- NOTE | 2021-04-13 19:36 | NUR ---
I noted a bottle water at patient bedside. I removed the water and reminded patient that she is unable to have anything to drink secondary to trach. Patient became upset with me. Stating that she is allow water and apple juice. I informed her of the risks of drinking fluid before she was ready and cleared by speak therapy-- aspiration. I told her that i would give her a damp sponge every time I entered room.
[2021-04-13] MEDS: ATORVASTATIN CALCIUM 40 MG TABLET. PO SCH (21:00)
[2021-04-14] VITALS (22 sets, daily range): BP systolic 109–202; BP diastolic 44–109
[2021-04-14] MEDS: DEXMEDETOMIDINE 400 MCG in IV NORMAL SALINE 100ML 96 ML IV PRN ×3 (01:31→20:56)
[2021-04-14] MEDS: HEPARIN for SUB-Q USE 5,000 UNIT/ML VIAL. SQ SCH ×3 (05:45→22:07)
[2021-04-14] MEDS: INSULIN LISPRO 300 UNITS/3 ML VIAL. SQ SCH ×3 (05:55→18:21)
[2021-04-14 06:23] LABS: CALCIUM 9.9 mg/dL (8.5-10.1); CREATININE 2.7 mg/dL (0.6-1.0); GFR 19.1; POTASSIUM 3.5 mmol/L (3.5-5.1)
--- NOTE | 2021-04-14 07:33 | PDOC ---
Infectious Disease Note Subjective: Subjective Patient resting quietly Vital Signs: Vital Signs Vital Signs Date Time Temp Pulse Resp B/P (MAP) Pulse Ox O2 Delivery O2 Flow Rate FiO2 04/14/21 05:10 100 Tracheal Collar 8.0 04/14/21 05:00 106 22 163/93 04/13/21 23:00 98.9 98.9 Physical Exam: PHYSICAL EXAM GENERAL: Awake, pleasantly confused HEENT: Normocephalic, atraumatic. Anicteric. Slight bilateral periorbital edema. Latter improving Neck right IJ HDC clean Trach + capped LUNGS: Rhonchi. HEART: S1, S2. No murmurs. ABDOMEN: Obese, soft. Bowel sounds present. Nontender, nondistended. PEG tube pulled out by patient GENITOURINARY: Kern and fecal tube in place. EXTREMITIES: Edema present no cyanosis. CENTRAL NERVOUS SYSTEM: Intubated. PSYCHIATRIC: Confused Derm has pressure wounds wound pictures noted in chart. Generalized rash, Right PICC line removed; left PICC line 04/07/2021 Right IJ HDC clean March 07 Medications: Inpatient Meds: Medications reviewed. Labs: Lab Laboratory Tests Test 04/13/21 14:34 04/14/21 05:54 04/14/21 05:55 Glucose (Fingerstick) 287 mg/dL (70-99) 270 mg/dL (70-99) Sodium Level 144 mmol/L (136-145) Potassium Level 3.5 mmol/L (3.5-5.1) Chloride Level 105 mmol/L (98-107) Carbon Dioxide Level 26 mmol/L (21-32) Anion Gap 13 (6-14) Blood Urea Nitrogen 61 mg/dL (7-20) Creatinine 2.7 mg/dL (0.6-1.0) Estimated GFR (Cockcroft-Gault) 19.1 Glucose Level 299 mg/dL (70-99) Calcium Level 9.9 mg/dL (8.5-10.1) Micro GRAM STAIN EVALUATION Final Final This specimen is of good quality and is acceptable for routine bacterial culture. Culture results to follow. NO ORGANISMS SEEN. SQUAMOUS EPI CELL:RARE PMN (WBCs):MODERATE Unless otherwise specified, Testing Performed by: [facility] [address] [place] [address] For Inquires, the Physician may contact the Microbiology department at [phone] RESPIRATORY CULTURE Final Final MODERATE GRAM NEGATIVE RODS on 03/18/21 at 1120 FINAL ID= [ACINETOBACTER [email or web address].] ACINETOBACTER URSINGII. ANTIMICROBIAL SUSCEPTIBILITY Final Comment NEG SAGE 56 ACINETOBACTER URSINGII. ANTIBIOTIC RESULT INTERPRETATION AMPICILLIN/SULBACTAM <=4/2 S AMIKACIN <=16 S CEFTRIAXONE 2 S CEFTAZIDIME 16 I CEFOTAXIME 16 I CIPROFLOXACIN <=0.25 S CEFEPIME 4 S GENTAMICIN <=2 S LEVOFLOXACIN <=0.5 S RUN DATE: 03/19/21 [facility] *LIVE* PAGE 2 RUN TIME: 1120 Specimen Inquiry SPEC: [id number] PATIENT: ARIADNA BANKS [id number] (Continued) Procedure Result CONTINUED ON NEXT PAGE RUN DATE: 03/19/21 [facility] *LIVE* PAGE 3 RUN TIME: 1120 Specimen Inquiry SPEC: [id number] PATIENT: ARIADNA BANKS [id number] (Co priyanka) Procedure Result ANTIMICROBIAL SUSCEPTIBILITY Final (continued) MINOCYCLINE <=4 S MEROPENEM <=1 S TRIMETHOPRIM/SULFAMETHOXAZOLE <=0.5/9.5 S TOBRAMYCIN <=2 S Unless otherwise specified, Testing Performed by: [address] [address] For Inquires, the Physician may contact the Microbiology department at [phone] Culture negative Objective: Assessment: 1. Febrile illness. Resolved 2. COVID-19 infection present on date of admission, 02/06/2021. Status post remdesivir, dexamethasone. 3. Acute hypoxic respiratory failure, status post intubation. S/P Trach on 03/17 Trach cultures positive for Rock albicans and now acinebacter ursungi 4. Diabetes. 5. Diarrhea. 6. Hypertension. 7. Hyperlipidemia. 8. Anemia. 9. BOB on HD 10.UC rock albican, ua neg 11. Nausea and vomiting 12. Leukocytosis likely reactive as patient had nausea and vomiting has pulled out PEG tube Plan: Plan of Care Monitor off antibiotics Leukocytosis appears to be reactive Maintain aspiration precautions Status post PICC line exchange Monitor lab and cultures C. 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 KAITLYNN CRAIG MD Apr 14, 2021 07:33
--- NOTE | 2021-04-14 08:42 | PDOC ---
PULMONARY PROGRESS NOTES DATE: 04/14/21 TIME: 08:42 Subjective Patient sitting up in bed, working with PT, OT not more short of Vitals Vital Signs Date Time Temp Pulse Resp B/P (MAP) Pulse Ox O2 Delivery O2 Flow Rate FiO2 04/14/21 07:00 113 20 190/98 100 Tracheal Collar 04/14/21 05:10 8.0 04/13/21 23:00 98.9 98.9 Lungs: Clear, Other (Has trach in place) Cardiovascular: S1 Abdomen: Soft, Non-tender Skin: Warm Labs Laboratory Tests Test 04/12/21 13:01 04/12/21 23:45 04/13/21 05:30 04/13/21 05:38 Glucose (Fingerstick) 226 mg/dL (70-99) 318 mg/dL (70-99) 171 mg/dL (70-99) Sodium Level 144 mmol/L (136-145) Potassium Level 3.7 mmol/L (3.5-5.1) Chloride Level 103 mmol/L (98-107) Carbon Dioxide Level 25 mmol/L (21-32) Anion Gap 16 (6-14) Blood Urea Nitrogen 62 mg/dL (7-20) Creatinine 3.0 mg/dL (0.6-1.0) Estimated GFR (Cockcroft-Gault) 16.9 Glucose Level 178 mg/dL (70-99) Calcium Level 10.0 mg/dL (8.5-10.1) Test 04/13/21 14:34 04/14/21 05:54 04/14/21 05:55 Glucose (Fingerstick) 287 mg/dL (70-99) 270 mg/dL (70-99) Sodium Level 144 mmol/L (136-145) Potassium Level 3.5 mmol/L (3.5-5.1) Chloride Level 105 mmol/L (98-107) Carbon Dioxide Level 26 mmol/L (21-32) Anion Gap 13 (6-14) Blood Urea Nitrogen 61 mg/dL (7-20) Creatinine 2.7 mg/dL (0.6-1.0) Estimated GFR (Cockcroft-Gault) 19.1 Glucose Level 299 mg/dL (70-99) Calcium Level 9.9 mg/dL (8.5-10.1) Laboratory Tests Test 04/13/21 14:34 04/14/21 05:54 04/14/21 05:55 Glucose (Fingerstick) 287 mg/dL (70-99) 270 mg/dL (70-99) Sodium Level 144 mmol/L (136-145) Potassium Level 3.5 mmol/L (3.5-5.1) Chloride Level 105 mmol/L (98-107) Carbon Dioxide Level 26 mmol/L (21-32) Anion Gap 13 (6-14) Blood Urea Nitrogen 61 mg/dL (7-20) Creatinine 2.7 mg/dL (0.6-1.0) Estimated GFR (Cockcroft-Gault) 19.1 Glucose Level 299 mg/dL (70-99) Calcium Level 9.9 mg/dL (8.5-10.1) Medications Active Scripts Medications Dose Route/Sig Max Daily Dose Days Date Category Novolog Flexpen (Insulin Aspart) 100 Unit/1 Ml Insuln.pen 3-7 SQ TIDACHC 02/07/21 Reported Lisinopril 5 Mg Tablet 1 Tab PO DAILY 02/07/21 Reported Lantus Solostar (Insulin Glargine,Hum.rec.anlog) 100 Unit/1 Ml Insuln.pen 5 Unit SQ QHS 04/09/15 Reported Atorvastatin Calcium 40 Mg Tablet 40 Mg PO HS 04/09/15 Reported Impression . IMPRESSION: 1. Acute hypoxic respiratory failure secondary to COVID-19 viral pneumonia/acute lung injury and early acute respiratory distress syndrome. S/P intubation 02/17/21. Status post tracheostomy. 2. Nonsmoker. 3. Abnormal chest x-ray consistent with COVID-19 viral pneumonia. 4. Diabetic ketoacidosis--resolved 5. Underlying obesity contributing to hypoxia as well. 6. BOB . hemodialysis started 03/07 7. Fever, 30 ID 8. Abnormal chest x-ray with diffuse interstitial infiltrates compatible with viral pneumonia 9. [place] in the sputum is a contamination 10. Septic shoc 11. s/p lap G-tube 03/27 12. Delirium Plan . Updated 04/14 Continue current support Downsize trach, will discuss with surgery Hemodialysis per nephrology PT OT updated 04/13 Continue trach shield with Passy-Luis Carlos valve Follow-up with speech Continue hemodialysis DVT nutritional support MONTEZ OROPEZA MD Apr 14, 2021 08:42
[2021-04-14] MEDS: MULTIVITAMINS,THERAPEUTIC 5 ML ORAL LIQUID. PEG SCH (09:00)
[2021-04-14] MEDS: NYSTATIN TOPICAL POWDER 15GM BOTTLE. TP SCH ×2 (09:00→21:03)
[2021-04-14] MEDS: DOCUSATE 100 MG/10 ML SOLUTION. PO SCH ×2 (09:00→21:00)
[2021-04-14] MEDS: FAMOTIDINE 20 MG/2 ML VIAL IVP SCH (09:12)
[2021-04-14] MEDS: LABETALOL 20 MG/4 ML DISP.SYRIN. IVP PRN ×2 (09:13→14:10)
[2021-04-14] MEDS: INSULIN GLARGINE SYRINGE. SQ SCH ×2 (09:14→21:08)
--- NOTE | 2021-04-14 09:33 | PDOC ---
DATE OF SERVICE DATE: 04/14/21 TIME: 09:30 SUBJECTIVE ROS Stable, No acute concerns or complaints Denies SOB OBJECTIVE Vital Signs Vital Signs Date Time Temp Pulse Resp B/P (MAP) Pulse Ox O2 Delivery O2 Flow Rate FiO2 04/14/21 09:13 113 199/101 04/14/21 07:45 100 Tracheal Collar 8.0 04/14/21 07:00 20 04/13/21 23:00 98.9 98.9 I & 0 Intake and Output 04/14/21 07:00 Intake Total 232.5 ml Output Total 1750 ml Balance -1517.5 ml IV Total 232.5 ml Output Urine Total 1750 ml PHYSICAL EXAM Physical Exam GENERAL: NAD , Trach collar HEENT: Anicteric. . Neck Trach+ LUNGS: decreased at bases HEART: S1, S2. No murmurs. ABDOMEN: Obese, soft. Bowel sounds present. GENITOURINARY: Kern in place. EXTREMITIES: Edema present no cyanosis. DIAGNOSIS/ASSESSMENT Assessment & Plan BOB-ATN- was anuric initially , non Oliguric for past 3 weeks , has been requiring dialysis 3 /week.Holding dialysis, last was on Tuesday . Renal function improving , Creat trending down. E-Lytes, Resp status stable. Will hold off dialysis today Supportive care, I/O avoid nephrotoxins, Monitor for recovery Access- temp HDC HypoNatremia - resolved stable HypoKalemia - K Normal since TF Change from Nepro to Normal K ; Pt pulled out her PEG DM 2 - Glucosuria + POA COVID 19 Pneumonia - Unvaccinated , treated, Off isolation Acute Resp Failure- Intubated ; CxR 04/01 Moderate diffuse pulmonary opacities, slightly decreased compared to prior. HTN BP very high during hospitalization. She reports no Hx of HTN , states was on lisinopril for Renoprotection with Hx of DM Anemia -avoid DOYLE 2/2 to Thrombogenic state Family History of ESRD - Per at bedside- Pt's Mom was on dialysis and sister is on Dialysis COMMENT/RELEVANT DATA Meds Current Medications Medications (Trade) Dose Ordered Sig/Pepe Start Time Stop Time Status Last Admin Dose Admin Acetaminophen (Tylenol Supp) 650 mg PRN Q6HRS PRN 02/08/21 01:45 02/17/21 10:45 DC Acetaminophen (Tylenol) 500 mg 1X PRN PRN 03/17/21 13:30 03/18/21 13:29 DC Albumin Human 200 ml @ 200 mls/hr 1X PRN PRN 04/06/21 08:45 04/06/21 14:44 DC 04/06/21 10:43 200 MLS/HR Albuterol Sulfate (Ventolin Hfa) 60 puff STK-MED ONCE 03/17/21 11:29 03/17/21 11:29 DC Alteplase, Recombinant (Cathflo For Central Catheter Clearance) 1 mg 1X ONCE 02/27/21 14:30 02/27/21 14:36 DC 02/27/21 15:19 1 MG Alteplase, Recombinant (Cathflo) 2 mg 1X ONCE 02/27/21 11:00 02/27/21 11:01 DC 02/27/21 11:20 2 MG Amlodipine Besylate (Norvasc) 10 mg DAILY 03/31/21 09:00 04/09/21 07:20 10 MG Atorvastatin Calcium (Lipitor) 40 mg HS 02/08/21 21:00 04/09/21 21:47 40 MG Atropine Sulfate (ATROPINE 0.5mg SYRINGE) 0.5 mg PRN Q5MIN PRN 02/16/21 12:00 Azithromycin 250 mg/Sodium Chloride 250 ml @ 250 mls/hr Q24H 02/14/21 13:30 02/18/21 14:29 DC 02/18/21 11:51 250 MLS/HR Benzonatate (Tessalon Perle) 100 mg [id number] 02/10/21 23:30 02/17/21 10:45 DC 02/16/21 22:07 100 MG Bupivacaine HCl/ Epinephrine Bitart (Sensorcain-Epi 0.5% Kit) 30 ml STK-MED ONCE 03/27/21 10:05 03/27/21 10:05 DC 03/27/21 13:12 16 ML Bupivacaine HCl/ Epinephrine Bitart (Sensorcain-Epi 0.5%-1:[id number] Mpf) 30 ml STK-MED ONCE 03/17/21 10:47 03/17/21 10:47 DC Carvedilol (Coreg) 6.25 mg [id number] 02/08/21 20:30 02/23/21 15:50 DC 02/23/21 08:06 6.25 MG Cefazolin Sodium/ Dextrose (Ancef 2gm Premix) 2 gm STK-MED ONCE 03/23/21 13:00 03/24/21 11:58 DC Ceftriaxone Sodium (Rocephin) 1 gm Q24H 02/14/21 13:00 02/23/21 07:34 DC 02/22/21 12:42 1 GM Cellulose (Surgicel Fibrillar 1x2) 1 each STK-MED ONCE 03/17/21 10:47 03/17/21 10:47 DC 03/17/21 11:56 1 EACH Daptomycin 480 mg/ Sodium Chloride 50 ml @ 100 mls/hr QMWF 03/23/21 16:00 03/26/21 10:29 DC 03/25/21 19:52 100 MLS/HR Daptomycin 500 mg/ Sodium Chloride 50 ml @ 100 mls/hr Q48H 04/02/21 10:00 04/09/21 10:52 DC 04/08/21 13:14 100 MLS/HR Dexamethasone Sodium Phosphate (Decadron) 2 mg 1X ONCE 02/27/21 09:00 02/26/21 07:15 DC Dexmedetomidine HCl 400 mcg/ Sodium Chloride 100 ml @ 0 mls/hr CONT PRN 02/27/21 09:45 04/14/21 01:31 5.3 MLS/HR Dextrose (Dextrose 50%-Water Syringe) 12.5 gm PRN Q15MIN PRN 03/01/21 13:00 03/01/21 12:55 12.5 GM Diphenhydramine HCl (Benadryl) 25 mg 1X PRN PRN 03/17/21 13:30 03/18/21 13:29 DC Docusate Sodium (Colace Solution) 100 mg BID 02/23/21 12:00 04/09/21 21:47 100 MG Docusate Sodium (Colace) 100 mg PRN DAILY PRN 02/07/21 08:45 02/23/21 10:47 DC Enalaprilat (Vasotec Inj) 0.625 mg Q6HRS 02/08/21 16:15 02/09/21 16:01 DC 02/09/21 13:42 0.625 MG Enoxaparin Sodium (Lovenox 30mg Syringe) 30 mg Q24H 03/08/21 09:00 03/12/21 15:38 DC 03/12/21 09:04 30 MG Enoxaparin Sodium (Lovenox 40mg Syringe) 40 mg BID 02/09/21 09:00 03/08/21 13:56 DC 03/08/21 08:26 40 MG Enoxaparin Sodium (Lovenox Per Pharmacy Prophylaxis Dosing) 1 each PRN DAILY PRN 02/09/21 06:45 03/12/21 15:38 DC Ephedrine Sulfate (ePHEDrine PF IN SALINE SYRINGE) 50 mg STK-MED ONCE 03/17/21 10:56 03/17/21 10:56 DC Famotidine (Pepcid Vial) 20 mg DAILY 03/10/21 09:00 04/14/21 09:12 20 MG Fentanyl (Duragesic 25mcg/ Hr Patch) 1 patch Q3DAYS 04/13/21 13:00 04/13/21 14:28 1 PATCH Fentanyl Citrate (Fentanyl 2ml Vial) 100 mcg 1X ONCE 04/13/21 14:00 04/13/21 14:03 DC 04/13/21 13:54 50 MCG Fluconazole/ Sodium Chloride 100 ml @ 100 mls/hr Q24H 03/07/21 09:00 03/17/21 08:03 DC 03/16/21 08:29 100 MLS/HR Fluoxetine HCl (PROzac) 20 mg 1X ONCE 04/10/21 11:15 04/10/21 11:34 DC Furosemide (Lasix) 40 mg 1X ONCE 03/29/21 15:00 03/29/21 15:02 DC 03/29/21 15:22 40 MG Glycerin/ Hypromellose/ Polyethylene (Artificial Tears) 1 drop PRN Q1HR PRN 02/17/21 10:00 04/05/21 08:02 1 DROP Glycopyrrolate (Robinul) 1 mg STK-MED ONCE 03/27/21 14:07 03/27/21 14:07 DC Guaifenesin (Robitussin Dm) 10 ml PRN Q6HRS PRN 02/10/21 23:30 02/16/21 09:06 10 ML Haloperidol Lactate (Haldol Inj) 5 mg Q8HRS 04/01/21 11:30 04/07/21 14:58 DC 04/07/21 05:51 5 MG Heparin Sodium (Porcine) (Heparin Sodium) 5,000 unit Q8HRS 03/13/21 06:00 04/14/21 05:45 5,000 UNIT Hydralazine HCl (Apresoline Inj) 10 mg PRN Q4HRS PRN 02/11/21 12:15 04/13/21 11:44 10 MG Hydromorphone HCl (Dilaudid) 0.5 mg PRN Q10MIN PRN 03/27/21 06:00 03/28/21 05:59 DC Info (CONTRAST GIVEN -- Rx MONITORING) 1 each PRN DAILY PRN 04/13/21 13:45 04/15/21 13:44 Info (PHARMACY MONITORING -- do not chart) 1 each PRN DAILY PRN 04/10/21 13:30 Cancel Insulin Glargine (Lantus Syringe) 5 unit BID 03/06/21 09:00 04/14/21 09:14 5 UNIT Insulin Human Lispro (HumaLOG) 12 units Q6HRS 02/20/21 12:00 02/28/21 15:38 DC 02/27/21 05:41 12 UNITS Insulin Human Regular 100 ml @ 10 mls/hr 1X ONCE 02/07/21 06:30 02/07/21 16:54 DC 02/07/21 09:31 6.5 MLS/HR Insulin Human Regular 100 unit/ Sodium Chloride 101 ml @ 0 mls/hr CONT PRN PRN 02/07/21 06:00 02/07/21 16:54 DC Iohexol (Omnipaque 240 Mg/ml) 50 ml 1X ONCE 04/13/21 13:45 04/13/21 13:46 DC 04/13/21 13:45 28 ML Labetalol HCl (Normodyne Iv Push) 10 mg PRN Q2HR PRN 02/08/21 00:45 04/14/21 09:13 10 MG Lactobacillus Rhamnosus (Culturelle) 1 cap BID 02/16/21 21:00 02/17/21 10:45 DC 02/16/21 22:02 1 CAP Lidocaine HCl (Buffered Lidocaine 1%) 3 ml STK-MED ONCE 03/07/21 13:25 03/07/21 13:25 DC Linezolid (Zyvox) 600 mg BID 03/05/21 09:00 03/12/21 07:00 DC 03/11/21 20:33 600 MG Linezolid/Dextrose 300 ml @ 300 mls/hr Q12HR 04/09/21 12:00 04/11/21 12:54 DC 04/11/21 09:59 300 MLS/HR Lisinopril (Prinivil) 20 mg DAILY 02/17/21 09:00 03/09/21 10:43 DC 02/27/21 09:10 20 MG Lorazepam (Ativan Inj) 1 mg PRN Q2HR PRN 04/10/21 11:15 Magnesium Sulfate 50 ml @ 25 mls/hr PRN DAILY PRN 04/04/21 13:00 Meropenem 1 gm/ Sodium Chloride 100 ml @ 200 mls/hr Q24H 03/18/21 17:00 04/10/21 11:57 DC 04/09/21 17:00 200 MLS/HR Methylprednisolone Sodium Succinate (SOLU-Medrol 125MG VIAL) 80 mg Q8HRS 02/25/21 09:00 02/26/21 07:09 DC 02/26/21 05:52 80 MG Metoclopramide HCl (Reglan Vial) 10 mg PRN Q6HRS PRN 02/08/21 00:45 02/12/21 15:51 10 MG Micafungin Sodium 100 mg/Dextrose 100 ml @ 100 mls/hr Q24H 03/21/21 18:00 03/25/21 10:27 DC 03/24/21 16:36 100 MLS/HR Midazolam HCl (Versed) 2 mg 1X ONCE 04/13/21 14:00 04/13/21 14:03 DC 04/13/21 13:54 2 MG Morphine Sulfate (Morphine Sulfate) 1 mg PRN Q10MIN PRN 03/27/21 06:00 03/28/21 05:59 DC Multi-Ingred Cream/Lotion/Oil/ Oint (Artificial Tears Eye Ointment) 1 reji PRN Q1HR PRN 03/17/21 17:30 03/20/21 15:55 1 REJI Multivitamins/ Minerals Therapeutic (Centrum Multivit-Mineral Liq) 5 ml DAILY 03/14/21 09:00 04/09/21 07:21 5 ML Naloxone HCl (Narcan) 0.4 mg PRN Q2MIN PRN 03/27/21 14:30 Neostigmine Irmo (Neostigmine Methylsulfate) 5 mg STK-MED ONCE 03/27/21 14:06 03/27/21 14:07 DC Norepinephrine Bitartrate 8 mg/ Dextrose 258 ml @ 21.711 mls/ hr CONT PRN 03/06/21 13:45 03/19/21 18:45 23.3 MLS/HR Nystatin (Nystop) 1 reji BID 03/02/21 21:00 04/13/21 21:00 1 REJI Ondansetron HCl (Zofran Odt) 4 mg 1X ONCE 02/06/21 23:30 02/06/21 23:31 DC 02/06/21 23:57 4 MG Ondansetron HCl (Zofran) 4 mg STK-MED ONCE 04/13/21 13:33 04/13/21 13:33 DC Phenylephrine HCl (PHENYLEPHRINE in 0.9% NACL PF) 1 mg STK-MED ONCE 03/27/21 13:46 03/27/21 13:46 DC Piperacillin Sod/ Tazobactam Sod (Zosyn Per Pharmacy) 1 each PRN DAILY PRN 02/23/21 07:45 03/17/21 10:04 DC Piperacillin Sod/ Tazobactam Sod 2.25 gm/Sodium Chloride 50 ml @ 100 mls/hr Q8HRS 03/07/21 14:00 03/17/21 08:03 DC 03/17/21 05:58 100 MLS/HR Piperacillin Sod/ Tazobactam Sod 3.375 gm/Sodium Chloride 50 ml @ 100 mls/hr Q6HRS 03/14/21 18:00 Cancel Piperacillin Sod/ Tazobactam Sod 4.5 gm/Sodium Chloride 100 ml @ 200 mls/hr Q6HRS 02/23/21 08:00 03/07/21 08:18 DC 03/07/21 06:12 200 MLS/HR Potassium Chloride/Water 100 ml @ 100 mls/hr Q1H 04/04/21 14:00 04/04/21 15:59 DC 04/04/21 15:12 100 MLS/HR Potassium Chloride (Klor-Con) 40 meq 1X ONCE 02/13/21 12:00 02/13/21 12:01 DC 02/13/21 13:21 40 MEQ Prochlorperazine Edisylate (Compazine) 5 mg PACU PRN PRN 03/27/21 06:00 03/28/21 05:59 DC Propofol (Diprivan) 200 mg STK-MED ONCE 03/27/21 12:02 03/27/21 12:03 DC Remdesivir 100 mg/ Sodium Chloride 230 ml @ 460 mls/hr Q24H 02/15/21 12:00 02/18/21 12:29 DC 02/18/21 11:52 460 MLS/HR Remdesivir 200 mg/ Sodium Chloride 210 ml @ 210 mls/hr 1X ONCE 02/11/21 13:00 02/12/21 11:55 DC 02/11/21 14:33 210 MLS/HR Ringer's Solution 1,000 ml @ 30 mls/hr Q24H 03/27/21 06:00 03/27/21 17:59 DC Rocuronium Irmo (Zemuron) 50 mg STK-MED ONCE 03/27/21 13:16 03/27/21 13:17 DC Sennosides (Senna) 17.2 mg PRN BID PRN 02/07/21 08:45 02/22/21 08:29 17.2 MG Sevoflurane (Ultane) 60 ml STK-MED ONCE 03/27/21 14:19 03/27/21 14:20 DC Sodium Chloride 500 ml @ 500 mls/hr 1X ONCE 04/08/21 16:45 04/08/21 17:44 DC 04/08/21 17:10 500 MLS/HR Sodium Chloride (Normal Saline Flush) 3 ml QSHIFT PRN 03/27/21 14:30 Succinylcholine Chloride (Anectine) 200 mg STK-MED ONCE 02/17/21 10:00 02/25/21 08:40 DC Vancomycin HCl (Vanco Per Pharmacy) 1 each PRN DAILY PRN 03/04/21 18:30 03/05/21 08:59 DC 03/04/21 19:47 1 EACH Vancomycin HCl (Vancomycin Trough Level) 1 each 1X ONCE 03/06/21 07:00 03/06/21 07:01 Cancel Vancomycin HCl 1.5 gm/Sodium Chloride 500 ml @ 250 mls/hr Q12H 03/05/21 07:30 03/05/21 08:58 DC Vancomycin HCl 1 gm/Sodium Chloride 250 ml @ 250 mls/hr Q12H 03/04/21 20:00 UNV Vancomycin HCl 2 gm/Sodium Chloride 500 ml @ 250 mls/hr 1X ONCE 03/04/21 19:00 03/04/21 20:59 DC 03/04/21 19:26 250 MLS/HR Vecuronium Irmo (Norcuron Bolus) 6 mg PRN Q2HRS PRN 03/06/21 14:30 03/16/21 10:16 5 MG Vitamin A/Vitamin D (Vitamin A & D Ointment) 1 reji PRN Q1HR PRN 03/10/21 01:45 03/20/21 09:34 1 REJI Zolpidem Tartrate (Ambien) 5 mg PRN QHS PRN 04/10/21 11:15 Lab Laboratory Tests Test 04/13/21 14:34 04/14/21 05:54 04/14/21 05:55 Glucose (Fingerstick) 287 mg/dL (70-99) 270 mg/dL (70-99) Sodium Level 144 mmol/L (136-145) Potassium Level 3.5 mmol/L (3.5-5.1) Chloride Level 105 mmol/L (98-107) Carbon Dioxide Level 26 mmol/L (21-32) Anion Gap 13 (6-14) Blood Urea Nitrogen 61 mg/dL (7-20) Creatinine 2.7 mg/dL (0.6-1.0) Estimated GFR (Cockcroft-Gault) 19.1 Glucose Level 299 mg/dL (70-99) Calcium Level 9.9 mg/dL (8.5-10.1) Results All relevant outside records, renal labs, imaging studies, telemetry/EKG's were reviewed. Justicifation of Admission Dx: Justifications for Admission: Justification of Admission Dx: N/A GIGI CARMEN MD Apr 14, 2021 09:33
--- NOTE | 2021-04-14 11:09 | NUR ---
SS following up with discharge planning. SS reviewed pt chart and discussed with pt RN. Pt is currently on trach shield at 35%. COVID19 recovered. G tube in place. PT/OT evaluated and recommended acute rehabilitation. Self pay. Med Assist following. Pt currently has no benefits for acute rehabilitation at this time. SS will continue to follow for discharge planning.
--- NOTE | 2021-04-14 11:35 | PDOC ---
[facility] PROGRESS NOTE Date of Service DOS: DATE: 04/14/21 TIME: 11:33 Chief Complaint Chief Complaint COVID-19 respiratory failure DKA Hypotension Nausea Vomiting Combined metabolic and respiratory acidosis Acute electrolyte derangementhyponatremia, hypochloremia due to volume depletion Hyperglycemia BOB due to ATN, requiring dialysis Erythrocytosis Candiduria Sacral decubitus ulcer S/P Trach on (03/17/21) Trach cultures positive for [place] albicans and now acinebacter ursungi History of Present Illness History of Present Illness 04/14/2021 Patient seen and examined in the ICU She remains pleasantly confused Has a new PEG in place Discussed with physical therapy Discussed with RN Chart reviewed 04/13/2021 Patient seen and examined in the ICU She is pleasantly confused Sedated with Precedex and fentanyl I discussed with the speech therapist the patient has no laryngeal movement Now she is n.p.o. again Going for new PEG placement in interventional radiology hopefully later today Her trach is clean Chart reviewed Discussed with RN 04/12/2021 Patient seen and examined in the ICU Her is present today and seems to be good support for her Chart reviewed Discussed with RN Still sedated with Precedex and fentanyl but awake 04/11/2021 Patient seen and examined in the ICU She remains quite confused currently sedated Chart reviewed Discussed with RN Had some nausea vomiting last night Pulled out her PEG yesterday Currently on fentanyl and Precedex IV Zyvox hanging 04/10/2021 Patient seen and examined in the ICU She is pleasantly confused Has a trach shield in place Discussed with RN Chart reviewed We are adding in some as needed Ativan and scheduled Prozac Ms Borges is a 46 year old female who presented with nausea/vomiting since 7 AM 02/06/2021 in the morning. Patient stated that her recently tested positive for Covid. She states that he "coughed in my face because he thought it was funny." She reports subjective fevers and chills and nausea/vomiting. Denies sore throat, cough, shortness of breath. No chest pain. Does have some upper abdominal discomfort after vomiting, that she attributes to muscular strain. She was not vaccinated for Covid. 02/08: No acute events overnight. Patient seen and examined bedside and resting comfortably. Continues to complain of nausea not able to tolerate any diet at this time. Saturating 98% on room air. Patient's chart, labs, images were reviewed and discussed with RN 02/09: Afebrile, currently breathing on room air. Still with complaints of nausea and vomiting x3 today. States that she has history of similar symptoms that have been mildly improved with IV Dilaudid. 02/10: Patient febrile today with T-max 102.2 F. She still admits to nausea, denies any further vomiting. We will continue to provide supportive care and m onitor for any recurrent fevers overnight. Patient continues to improve may discharge tomorrow to continue self-isolation. 02/11: Febrile overnight, T-max 102.3 F. She did become hypoxic overnight, currently breathing on 4 L nasal cannula. Also admits to associated vomiting or diarrhea overnight. Discussed with RN, will initiate remdesivir and closely monitor LFTs. IV Decadron, and prophylactic antibiotics. 02/12: Low-grade fever overnight, T-max 99.7. Currently breathing on room air. Will discontinue remdesivir, steroids, and antibiotics; will observe overnight. Still with complaints of vomiting x1 and diarrhea. We will continue to provide supportive care and hope to discharge in the next day or so. 02/13: Afebrile. Still complains of intermittent diarrhea. At the time of my evaluation she was breathing on 6 L nasal cannula; this is somewhat misleading as patient states that she did not feel short of breath but was placed on 6 L by nursing staff overnight. 02/14: Afebrile, currently breathing on 8 L nasal cannula. There has been some misleading documentation, chart oxygen this patient is requiring. Discussed with RN, will resume remdesivir to complete total of 5 days. Continue to monitor LFTs. Will add steroids, Rocephin, and azithromycin. 02/15: Afebrile. Became much more hypoxic overnight, requiring BiPAP. At the time of my evaluation she is still breathing on BiPAP. Consultation was placed to pulmonology. Had discussion with Dr. Myrick about initiating Tocilizumab 02/16: No acute events overnight. Patient becoming more hypoxic saturating 94% and requiring BiPAP. Patient will be transferred to the ICU at this time. For worsening clinical status. Discussed with pulmonary. Patient's chart, labs, images were reviewed and discussed with RN 02/17: Transferred to ICU yesterday afternoon. Seen and examined at bedside she remains on 100% FiO2 on BiPAP. Respirations do appear somewhat labored. Suspect intubation may be impending. We will closely monitor. Increase lisinopril to 20 today. 02/18: Patient required intubation yesterday afternoon. Saw and examined this morning. She is intubated and sedated. Increase insulin today. Covid protocol ordered. Wean as tolerated. Plan of care discussed with bedside nurse. 02/19: Bedside. She remains intubated and sedated. Continue Covid protocol. Wean oxygen sedation as tolerated. Pulmonary following. Plan of care discussed with bedside RN. 02/20: Patient seen and examined at bedside. She remains intubated and sedated. No major clinical changes. Continue current treatment. Pulmonary following. Plan of care discussed with bedside RN. 02/21: Patient seen and examined at bedside. Remains intubated and sedated date and admission clinical changes. Increase free water flushes today due to hypernatremia. Plan of care discussed with bedside nurse. 02/22: Patient seen and examined at bedside. O2 requirement actually improving, although remains intubated. Possible SBT in the coming days. Hypernatremia improving. Plan of care discussed bedside RN. 02/23: Patient remains in ICU on ventilator with FiO2 100%, PEEP 7. Repeat chest x-ray yesterday showed diffuse bilateral pulmonary opacities with no interval improvement. Will discontinue Rocephin and initiate Zosyn. We will continue IV steroids for a full 10-day course 02/24: Afebrile. On vent with FiO2 40%, PEEP 6. Her Coreg has been held due to persistent bradycardia. No documented history of systolic heart failure or previous echocardiogram. Will need to obtain echocardiogram prior to discharge. Continue IV steroids and antibiotics. 02/25: Afebrile. Remains ventilated with FiO2 45%, PEEP 6. Chest x-ray today showed slight improvement of the pulmonary infiltrates, no pneumothorax. Completed 10-day course of IV Decadron. Will initiate slow Solu-Medrol taper. Continue IV Zosyn. Continue supportive care. 02/26: Afebrile. On vent with FiO2 45%, PEEP 6. Completed 10 days of IV Decadron. Will continue IV Zosyn. Continue supportive care. Critical care time 30 minutes spent reviewing charts, reviewing imaging, reviewing labs, discussion with RN. 02/27: Afebrile. On vent with FiO2 45%, PEEP 6. Completed 10 days of steroids and completed remdesivir. Continue with IV Zosyn. CPAP trial yesterday. Continue NG tube and supportive care. 02/28:. Patient remains on vent with FiO2 40%, PEEP 5. Afebrile. Completed steroids and remdesivir. Some noted hypoglycemia overnight, will de-escalate basal insulin. Continue IV Zosyn. Ventilator management per pulmonology. Continue NG tube and supportive care. 03/01: On vent with FiO2 40%, PEEP 5. Afebrile. Completed steroids and remdesivir. Blood glucose well controlled. Continue empiric antibiotics with Zosyn. Ventilator management per pulmonology. Continue NG tube and supportive care. 03/02: No acute events overnight. Patient hypotensive the morning due to oversedation. Will wean off sedation and keep antihypertensive medications on board. Currently saturating 100% on vent settings of 18/450/40/5. Will attempt spontaneous breathing trial today to see how patient does. 03/03: No acute events overnight. Patient saturating 98% on vent settings of 18/450/40/5. Will defer spontaneous breathing trials to pulmonary at this time. Patient's chart, labs, images were reviewed and discussed with RN 8/: No acute events overnight. Patient saturating 9 9% on vent settings of 18/450/30/5. Patient currently is unable to tolerate weaning. Per pulmonary. Patient's chart, labs, images were reviewed and discussed with RN 8: No acute events overnight. Patient is saturating 97% on vent settings of 18/450/55/5. Her FiO2 needs to be increased due to abnormal ABG with 7.3 //24. Patient's chart, labs, images were reviewed and discussed with RN 8/: No acute events overnight. Patient saturating 94% on vent settings of 18/450/55/5. Chest x-ray showing increase in pulmonary infiltrates. Wound care is consulted for decubitus ulcer patient's chart, labs, images were reviewed and discussed with RN 8/: No acute events overnight. Patient saturating 94% on vent settings of 20/450/70/8. Patient now heading into renal failure with her creatinine bumped up from 1.5-4.2. Decreased urine output. Plan for hemodialysis today and temporary catheter placement and nephrology is consulted. 03/08: No acute events overnight. Patient did have a nausea vomiting episode and tube feeds were held. KUB repeat shows NG tube still in the stomach. Will resume tube feeds at trickle and advance to goal today. Will start hemodialysis soon. 03/09: Seen on vent 20/450/60%/8. ABG 7.2 WBC 11.4, Hb 7.4, platelets 188, NA 131, K4.9, BUN 48, CR 51, glucose 199, phosphorus 7.9, mag 2.2, AST 265 ALT 219, albumin 1.1. Chest radiograph appears unchanged from prior. Dialysis x1 today 03/10: Afebrile. Seen on vent, //60/7 with ABG 7.3 . Tolerated dialysis well on 03/09. LFTs similar. 03/11: Afebrile. Seen on vent, sedated. Still requiring Levophed for BP support. WBC 16.7, Hb 8.1, NA 130, ABG 7.3 on 55% FiO2 PEEP 6. On Zosyn and Zyvox Diflucan. Dialysis today 03/12: Afebrile. Still requiring Levophed for BP support sedated with Versed febrile Precedex. WBC 16.1, Hb 8.5, platelets 185, NA 133. Trach plan tentatively 03/17. O2 saturations 93% on 50% FiO2 PEEP 6. ABG 7. On Zosyn and Zyvox Diflucan. 03/13: Afebrile. Still on Levophed for BP support lightly sedated. 7. on 45% FiO2. Plan for dialysis today. On Zosyn and Zyvox Diflucan. More swollen today. 03/14: Afebrile. Weaning down off Levophed. WBC 14.9 NA 132. O2 saturations 92% on 45% FiO2 PEEP 5. Afebrile. O2 saturations 91% on FiO2 45% PEEP 6. Continued on Zosyn and Zyvox Diflucan. Tentative trach planned 03/17/2021 CC time 31 minutes 03/16/21: Patient seen and examined in ICU. Periorbital as well as upper and lower extremity edema noted. OG feed running at 30cc/hr. Still on vent on pressure control with a rate of 24 with 45% FiO2. Patient has rectal bag. Currently she has 98% O2 sat. Currently sedated with Dexmedetomidine, Propofol, Versed, and Fentanyl. Discussed with RN. Chart reviewed. 03/17/21: Patient was seen and examined in the ICU today. Periorbital edema as well as abdominal and mons pubis edema was noted. Patient still on vent on pressure control with Fi02 of 45% plus 6 PEEP. Patient had rectal bag. Currently sedated on Dexmedetomidine, Propofol, Versed, and Fentanyl. Discussed with RN. Chart reviewed. 03/18/21: Patient seen and examined in ICU. On vent via trach that was placed yesterday. Vent settings are Pressure Control of 40 with FiO2 of 45% and 6 PEEP. Trach clean and dry. Orbital swelling still present. Pupils are sluggish. Patient on TPN running at 30cc/hr. Kern to bedside and rectal bag in place. Current O2 sat at 94%. Sedated on Dexmedetomidine, Propofol, Versed, and Fentanyl. Discussed with RN. Chart reviewed. 03/19/21: Patient was seen and examined in the ICU today. Currently on vent via trach on pressure control of 42, rate of 24, FiO2 of 45%, and 6 PEEP. O2 sat is at 97% while patient is being examined. Trach is clean and dry. PICC line is in place on right arm. Periorbital swelling has decreased slightly since examined yesterday. Patient is sedated on Dexmedetomidine, Propofol, Versed, and Fentanyl. Discussed with RN. Chart reviewed. 03/20/21: Patient seen and examined in the ICU. Periorbital edema is slightly decreased since yesterday. O2 sat while being examined was 93%. NG tube in place and running at 30cc/hr. Patient on vent via trach on pressure control of 40 with FiO2 of 45 and rate of 24. Sedated on Dexmedetomidine, Propofol, Versed, and Fentanyl. PICC line in place. Kern to bedside. Rectal bag present. Discussed with RN. Chart reviewed. 03/21/21: Patient was seen and examined in the ICU today. She was semi-sedated.. She was on Dexmedetomidine and Fentanyl. We are holding the Propofol. Her eyes were periodically open but she was not making meaningful eye contact or tracking. On vent via trach with pressure control of 40 and FiO2 at 45. Rate was 24. PEEP was 5. Trach was clean and dry. While being examined, her O2 sat was 94%. Rectal bag and Kern to bedside in place. NG tube in place and feeding at 30cc/hr. IV fluids still running. Levophed has been stopped. Discussed with RN. Chart reviewed. 03/22/21: Patient was seen and examined in the ICU. She was semi-sedated on Propofol and Dexmedetomidine. Her eyes were open but she did not make meaningful eye contact. Her blood pressure was elevated (198/102) while being examined and she had just been given hydralazine to lower it. There are plans to place a PEG tube tomorrow. Currently on vent via trach on pressure control of 40 with FiO2 of 45%, 5 PEEP, and a rate of 24. Current O2 sat is 98%. She is feeding through an NG tube at 30cc/hr. Rectal bag and Kern to bedside present. SCDs on patient for DVT prophylaxis. She did not do her daily dialysis today but the plan is to start back on that tomorrow. Discussed with RN. Chart reviewed. 03/23/2021: Patient remains in ICU on ventilator. FiO2 40%, PEEP 5. Trach cultures positive for [place] albicans and acinebacter ursungi. We will continue treatment with IV antibiotics and micafungin, per ID. HD per nephrology. Plans for PEG tube placement today. 30 minutes critical care time was spent reviewing charts, reviewing labs, reviewing imaging, discussion with RN. 03/24/2021: Afebrile. On vent with FiO2 45%, PEEP 5. Had attempted PEG placement per GI yesterday, but unable to locate safe path for PEG; will consider surgical opinion. Once PEG is in place she should be stable for LTAC transfer when accepted. Continue antibiotics, per ID. 30 minutes critical care time was spent reviewing charts, reviewing labs, reviewing imaging, discussion with RN. 03/25/2021: Febrile overnight with T-max 101.5 F. On vent with FiO2 45%, PEEP 5. Surgery has been consulted with tentative plans for laparoscopic versus open gastrostomy placement tomorrow. Trach cultures positive for [place] albicans and now acinebacter ursungi; will continue antibiotic management, per ID. Hemodialysis, per nephrology. Patient needing LTAC placement, but currently without benefits. fish house worker following for discharge planning. Critical care time 30 minutes spent reviewing charts, reviewing labs, reviewing imaging, discussion with RN. 03/26/2021: Febrile today with T-max 100.5 F. Awake on vent with FiO2 45%, PEEP 5. When I ask if she remembers any she nods. G-tube placement scheduled for tomorrow, per general surgery. Chest x-ray today showed slight interval increase in diffuse infiltrate. Continue antibiotic management, per ID. Hemodialysis per nephrology. Reportedly did not tolerate CPAP trial this morning. fish house worker following for LTAC placement. Critical care time 30 minutes spent reviewing charts, reviewing labs, reviewing imaging, discussion w robert ALEXIS. 03/27/2021: On vent with FiO2 45%, PEEP 5. Afebrile today. Continue treatment of acute renal failure requiring HD, per nephrology. Monitor kidney function for recovery. G-tube placement scheduled for today, per general surgery. Likely LTAC placement soon, but this is been a difficult as she is self-pay without benefits; social welfare research worker following. Critical care time 30 minutes spent reviewing charts, reviewing labs, reviewing imaging, discussion with RN. 03/28/2021: Afebrile. On vent with FiO2 40%, PEEP 5. Had laparoscopic gastrostomy tube placed yesterday, per general surgery. Continue treatment of acute renal failure requiring HD, per nephrology. Continue IV antibiotics, per ID. Likely LTAC placement soon, but this is been a difficult as she is self-pay without benefits; social welfare research worker following. Critical care time 30 minutes spent reviewing charts, reviewing labs, reviewing imaging, discussion with RN. 03/29/2021: Afebrile. On vent with FiO2 45%, PEEP 5. S/P laparoscopic g astrostomy tube; tube feeds running. HD, per nephrology. Continue meropenem, per ID. Anticipate LTAC placement soon now that PEG has being placed; social welfare research worker helping in these regards. Critical care time 30 minutes spent reviewing charts, reviewing labs, reviewing imaging, discussion with RN. 03/30 No major events or clinical changes overnight. Patient evaluated at bedside th is morning on trach and G-tube. Tolerating these well. Has been working on insurance for patient for placement as she will need long-term care. Guarded prognosis. Plan of care discussed with bedside nurse. 03/31 No major clinical changes. Remains trached. Sedated. Continue current plan. 04/01 No changes. Patient resting in bed when evaluated sedated. is supposed to be working on insurance for placement for the patient. Otherwise no changes. 04/02 Patient febrile overnight, daptomycin added this morning per infectious disease. Otherwise no major clinical changes. Awaiting insurance. Infectious disease, pulmonary and renal following. Plan of care discussed with bedside RN. 04/03 Patient undergoing dialysis today. Evaluated at bedside this morning. otherwise continue current plan. supposed working on insurance. 04/04 No major overnight changes. Continue current plan. 04/05 Patient notably more movement this morning eyes open resting in bed otherwise no major changes. Continue current plan. Insurance pending. 04/06 Patient notably more movement this morning eyes open resting in bed current plan. Insurance pending. Continue daptomycin, renal dosing April 02 F/U Blood culture UA urine culture C. diff PCR negative 32 min cc time 04/07 Patient notably more movement this morning eyes open resting in bed current plan. Insurance pending. Continue daptomycin, renal dosing April 02 F/U Blood culture UA urine culture C. diff PCR negative Abnormal chest x-ray consistent with COVID-19 viral pneumonia. Diabetic ketoacidosis--resolved obesity contributing to hypoxia as well. BOB . hemodialysis started 03/07 DVT GI prophylaxis Nutritional support 34 min cc time 04/08 Patient notably more movement this morning eyes open resting in bed current plan. Insurance pending. Continue daptomycin, renal dosing April 02 F/U Blood culture UA urine culture C. diff PCR negative s/p lap G-tube 03/27 Abnormal chest x-ray consistent with COVID-19 viral pneumonia. Diabetic ketoacidosis--resolved obesity contributing to hypoxia as well. BOB . hemodialysis started 03/07 DVT GI prophylaxis Nutritional support Right PICC line February 14 out; left PICC line 04/07/2021 Right IJ HDC clean March 07 32 min cc time 04/09 non Oliguric for past 11/2 -2 weeks , good response to IV NS bolus .requiring dialysis., currently on MWF schedule, tolerating trach shield well.using her speaking valve./ resting in bed current / states she feels better Start iv Zyvox Cont Meropenem DC daptomycin post PICC line exchange aspiration precautions C. diff PCR negative F/U Blood culture UA urine culture s/p lap G-tube 03/27 Abnormal chest x-ray consistent with COVID-19 viral pneumonia. Diabetic ketoacidosis--resolved obesity contributing to hypoxia as well. BOB . hemodialysis started 03/07 DVT GI prophylaxis Nutritional support Right PICC line February 14 out; left PICC line 04/07/2021 Right IJ HDC clean March 07 34 min cc time Vitals/I&O Vitals/I&O: Vital Signs Date Time Temp Pulse Resp B/P (MAP) Pulse Ox O2 Delivery O2 Flow Rate FiO2 04/14/21 10:02 100 Tracheal Collar 8.0 04/14/21 10:00 108 20 193/95 04/14/21 08:00 98.3 98.3 I & O 04/13/21 04/13/21 04/14/21 15:00 23:00 07:00 Intake Total 15.5 ml 101 ml 116 ml Output Total 550 ml 900 ml 300 ml Balance -534.5 ml -799 ml -184 ml Physical Exam Physical Exam: GENERAL: Awake, pleasantly confused HEENT: Normocephalic, atraumatic. Anicteric. Slight bilateral periorbital edema. Latter improving Neck right IJ HDC clean Trach + capped LUNGS: Rhonchi. HEART: S1, S2. No murmurs. ABDOMEN: Obese, soft. Bowel sounds present. Nontender, nondistended. PEG tube pulled out by patient GENITOURINARY: Kern and fecal tube in place. EXTREMITIES: Edema present no cyanosis. CENTRAL NERVOUS SYSTEM: Intubated. PSYCHIATRIC: Confused Derm has pressure wounds wound pictures noted in chart. Generalized rash, Right PICC line removed; left PICC line 04/07/2021 Right IJ HDC clean March 07 General: Alert, Oriented X3, Cooperative Heart: Regular rate, Normal S1, Normal S2 Lungs: Clear, Other (Has trach in place) Abdomen: Soft, Other (ND) Extremities: No cyanosis, Other (ANASARCA) Skin: No rashes, No significant lesion Labs Labs: Laboratory Tests Test 04/13/21 14:34 04/14/21 05:54 04/14/21 05:55 Glucose (Fingerstick) 287 mg/dL (70-99) 270 mg/dL (70-99) Sodium Level 144 mmol/L (136-145) Potassium Level 3.5 mmol/L (3.5-5.1) Chloride Level 105 mmol/L (98-107) Carbon Dioxide Level 26 mmol/L (21-32) Anion Gap 13 (6-14) Blood Urea Nitrogen 61 mg/dL (7-20) Creatinine 2.7 mg/dL (0.6-1.0) Estimated GFR (Cockcroft-Gault) 19.1 Glucose Level 299 mg/dL (70-99) Calcium Level 9.9 mg/dL (8.5-10.1) Assessment and Plan Assessmemt and Plan Problems Medical Problems: (1) Ketoacidosis Status: Acute COVID-19 respiratory failure DKA Hypotension Status post 2nd new PEG placement yesterday Nausea Vomiting Combined metabolic and respiratory acidosis Acute electrolyte derangementhyponatremia, hypochloremia due to volume depletion Hyperglycemia BOB due to ATN, requiring dialysis Erythrocytosis Candiduria Sacral decubitus ulcer S/P Trach on (03/17/21) Trach cultures positive for [place] albicans and now acinebacter ursungi Plan [place] to start PEG feeds soon We will try to transfer out of ICU to the medical floor once off of the sedation Continue Precedex and fentanyl with as needed Ativan Schedule Prozac 20 a day Cardiac monitoring Home meds Trend labs DVT prophylaxis PT OT speech therapy Full code Continue other treatments Appreciate subspecialist input Prognosis guarded but very slowly improving Comment Review of Relevant I have reviewed the following items mazin (where applicable) has been applied. Medications: Current Medications Medications (Trade) Dose Ordered Sig/Pepe Route PRN Reason Start Time Stop Time Status Last Admin Dose Admin Fentanyl (Duragesic 25mcg/ Hr Patch) 1 patch Q3DAYS TD 04/13/21 13:00 04/13/21 14:28 Iohexol (Omnipaque 240 Mg/ml) 50 ml 1X ONCE IJ 04/13/21 13:45 04/13/21 13:46 DC 04/13/21 13:45 Midazolam HCl (Versed) 2 mg 1X ONCE IV 04/13/21 14:00 04/13/21 14:03 DC 04/13/21 13:54 Fentanyl Citrate (Fentanyl 2ml Vial) 100 mcg 1X ONCE IV 04/13/21 14:00 04/13/21 14:03 DC 04/13/21 13:54 Justifications for Admission Other Justification DIANELYS BLACKMON III DO Apr 14, 2021 11:35
[2021-04-14] MEDS: ATORVASTATIN CALCIUM 40 MG TABLET. PO SCH (21:03)
[2021-04-15] VITALS (13 sets, daily range): BP systolic 110–204; BP diastolic 17–105
[2021-04-15] MEDS: INSULIN LISPRO 300 UNITS/3 ML VIAL. SQ SCH ×4 (00:54→19:45)
[2021-04-15] MEDS: DEXMEDETOMIDINE 400 MCG in IV NORMAL SALINE 100ML 96 ML IV PRN (05:36)
[2021-04-15] MEDS: HEPARIN for SUB-Q USE 5,000 UNIT/ML VIAL. SQ SCH ×3 (05:41→21:07)
[2021-04-15] MEDS: LABETALOL 20 MG/4 ML DISP.SYRIN. IVP PRN ×5 (05:45→22:54)
[2021-04-15 06:30] LABS: CALCIUM 9.3 mg/dL (8.5-10.1); CREATININE 2.3 mg/dL (0.6-1.0); GFR 22.9; POTASSIUM 3.1 mmol/L (3.5-5.1)
--- NOTE | 2021-04-15 08:36 | PDOC ---
PULMONARY PROGRESS NOTES DATE: 04/15/21 TIME: 08:36 Subjective Patient feels short of breath, with [place] valve on No chest pain no pressure patient Vitals Vital Signs Date Time Temp Pulse Resp B/P (MAP) Pulse Ox O2 Delivery O2 Flow Rate FiO2 04/15/21 06:10 106 176/105 98 8.0 04/15/21 05:12 Tracheal Collar 04/15/21 03:15 98.9 98.9 04/15/21 00:00 13 ROS: No Nausea, No Chest Pain, No Abdominal Pain, No Increase Cough Lungs: Crackles Cardiovascular: S1 Abdomen: Soft, Non-tender Neuro Exam: Alert, Normal Speech Skin: Warm Labs Laboratory Tests Test 04/13/21 14:34 04/14/21 05:54 04/14/21 05:55 04/14/21 11:52 Glucose (Fingerstick) 287 mg/dL (70-99) 270 mg/dL (70-99) 274 mg/dL (70-99) Sodium Level 144 mmol/L (136-145) Potassium Level 3.5 mmol/L (3.5-5.1) Chloride Level 105 mmol/L (98-107) Carbon Dioxide Level 26 mmol/L (21-32) Anion Gap 13 (6-14) Blood Urea Nitrogen 61 mg/dL (7-20) Creatinine 2.7 mg/dL (0.6-1.0) Estimated GFR (Cockcroft-Gault) 19.1 Glucose Level 299 mg/dL (70-99) Calcium Level 9.9 mg/dL (8.5-10.1) Test 04/14/21 18:18 04/14/21 23:58 04/15/21 05:30 04/15/21 05:45 Glucose (Fingerstick) 332 mg/dL (70-99) 216 mg/dL (70-99) 286 mg/dL (70-99) Sodium Level 141 mmol/L (136-145) Potassium Level 3.1 mmol/L (3.5-5.1) Chloride Level 102 mmol/L (98-107) Carbon Dioxide Level 26 mmol/L (21-32) Anion Gap 13 (6-14) Blood Urea Nitrogen 59 mg/dL (7-20) Creatinine 2.3 mg/dL (0.6-1.0) Estimated GFR (Cockcroft-Gault) 22.9 Glucose Level 309 mg/dL (70-99) Calcium Level 9.3 mg/dL (8.5-10.1) Laboratory Tests Test 04/14/21 11:52 04/14/21 18:18 04/14/21 23:58 04/15/21 05:30 Glucose (Fingerstick) 274 mg/dL (70-99) 332 mg/dL (70-99) 216 mg/dL (70-99) 286 mg/dL (70-99) Test 04/15/21 05:45 Sodium Level 141 mmol/L (136-145) Potassium Level 3.1 mmol/L (3.5-5.1) Chloride Level 102 mmol/L (98-107) Carbon Dioxide Level 26 mmol/L (21-32) Anion Gap 13 (6-14) Blood Urea Nitrogen 59 mg/dL (7-20) Creatinine 2.3 mg/dL (0.6-1.0) Estimated GFR (Cockcroft-Gault) 22.9 Glucose Level 309 mg/dL (70-99) Calcium Level 9.3 mg/dL (8.5-10.1) Medications Active Scripts Medications Dose Route/Sig Max Daily Dose Days Date Category Novolog Flexpen (Insulin Aspart) 100 Unit/1 Ml Insuln.pen 3-7 SQ TIDACHC 02/07/21 Reported Lisinopril 5 Mg Tablet 1 Tab PO DAILY 02/07/21 Reported Lantus Solostar (Insulin Glargine,Hum.rec.anlog) 100 Unit/1 Ml Insuln.pen 5 Unit SQ QHS 04/09/15 Reported Atorvastatin Calcium 40 Mg Tablet 40 Mg PO HS 04/09/15 Reported Impression . IMPRESSION: 1. Acute hypoxic respiratory failure secondary to COVID-19 viral pneumonia/acute lung injury and early acute respiratory distress syndrome. S/P intubation 02/17/21. Status post tracheostomy. 2. Nonsmoker. 3. Abnormal chest x-ray consistent with COVID-19 viral pneumonia. 4. Diabetic ketoacidosis--resolved 5. Underlying obesity contributing to hypoxia as well. 6. BOB . hemodialysis started 03/07 7. Fever, 30 ID 8. Abnormal chest x-ray with diffuse interstitial infiltrates compatible with viral pneumonia 9. [place] in the sputum is a contamination 10. Septic shoc 11. s/p lap G-tube 03/27 12. Delirium Plan . Updated 04/15 Continue current support Discussed with Dr. Mills yesterday, May decannulate in 24 to 48 hours PT OT Updated 04/14 Continue current support Downsize trach, will discuss with surgery Hemodialysis per nephrology PT OT updated 04/13 Continue trach shield with [place] valve Follow-up with speech Continue hemodialysis DVT nutritional support MONTEZ OROPEZA MD Apr 15, 2021 08:36
[2021-04-15] MEDS: FAMOTIDINE 20 MG/2 ML VIAL IVP SCH (08:53)
[2021-04-15] MEDS: MULTIVITAMINS,THERAPEUTIC 5 ML ORAL LIQUID. PEG SCH (08:53)
[2021-04-15] MEDS: DOCUSATE 100 MG/10 ML SOLUTION. PO SCH ×2 (08:55→21:05)
[2021-04-15] MEDS: INSULIN GLARGINE SYRINGE. SQ SCH ×2 (08:55→21:06)
[2021-04-15] MEDS: NYSTATIN TOPICAL POWDER 15GM BOTTLE. TP SCH ×2 (08:55→21:06)
--- NOTE | 2021-04-15 08:57 | PDOC ---
[facility] PROGRESS NOTE Date of Service DOS: DATE: 04/15/21 TIME: 08:56 Chief Complaint Chief Complaint COVID-19 respiratory failure DKA Hypotension Nausea Vomiting Combined metabolic and respiratory acidosis Acute electrolyte derangementhyponatremia, hypochloremia due to volume depletion Hyperglycemia BOB due to ATN, requiring dialysis Erythrocytosis Candiduria Sacral decubitus ulcer S/P Trach on (03/17/21) Trach cultures positive for [place] albicans and now acinebacter ursungi History of Present Illness History of Present Illness 04/15/2021 Patient seen and examined in the ICU She has clean dry intact tracheostomy with trach shield PEG feeds running at 30 cc an hour She really wants to drink water I told her that we are awaiting speech therapy to reevaluate her Chart reviewed Discussed with RN 04/14/2021 Patient seen and examined in the ICU She remains pleasantly confused Has a new PEG in place Discussed with physical therapy Discussed with RN Chart reviewed 04/13/2021 Patient seen and examined in the ICU She is pleasantly confused Sedated with Precedex and fentanyl I discussed with the speech therapist the patient has no laryngeal movement Now she is n.p.o. again Going for new PEG placement in interventional radiology hopefully later today Her trach is clean Chart reviewed Discussed with RN 04/12/2021 Patient seen and examined in the ICU Her is present today and seems to be good support for her Chart reviewed Discussed with RN Still sedated with Precedex and fentanyl but awake 04/11/2021 Patient seen and examined in the ICU She remains quite confused currently sedated Chart reviewed Discussed with RN Had some nausea vomiting last night Pulled out her PEG yesterday Currently on fentanyl and Precedex IV Zyvox hanging 04/10/2021 Patient seen and examined in the ICU She is pleasantly confused Has a trach shield in place Discussed with RN Chart reviewed We are adding in some as needed Ativan and scheduled Prozac Ms Borges is a 46 year old female who presented with nausea/vomiting since 7 AM 02/06/2021 in the morning. Patient stated that her recently tested positive for Covid. She states that he "coughed in my face because he thought it was funny." She reports subjective fevers and chills and nausea/vomiting. Denies sore throat, cough, shortness of breath. No chest pain. Does have some upper abdominal discomfort after vomiting, that she attributes to muscular strain. She was not vaccinated for Covid. 02/08: No acute events overnight. Patient seen and examined bedside and resting comfortably. Continues to complain of nausea not able to tolerate any diet at this time. Saturating 98% on room air. Patient's chart, labs, images were reviewed and discussed with RN 02/09: Afebrile, currently breathing on room air. Still with complaints of nausea and vomiting x3 today. States that she has history of similar symptoms that have been mildly improved with IV Dilaudid. 02/10: Patient febrile today with T-max 102.2 F. She still admits to nausea, denies any further vomiting. We will continue to provide supportive care and monitor for any recurrent fevers overnight. Patient continues to improve may discharge tomorrow to continue self-isolation. 02/11: Febrile overnight, T-max 102.3 F. She did become hypoxic overnight, currently breathing on 4 L nasal cannula. Also admits to associated vomiting or diarrhea overnight. Discussed with RN, will initiate remdesivir and closely monitor LFTs. IV Decadron, and prophylactic antibiotics. 02/12: Low-grade fever overnight, T-max 99.7. Currently breathing on room air. Will discontinue remdesivir, steroids, and antibiotics; will observe overnight. Still with complaints of vomiting x1 and diarrhea. We will continue to provide supportive care and hope to discharge in the next day or so. 02/13: Afebrile. Still complains of intermittent diarrhea. At the time of my evaluation she was breathing on 6 L nasal cannula; this is somewhat misleading as patient states that she did not feel short of breath but was placed on 6 L by nursing staff overnight. 02/14: Afebrile, currently breathing on 8 L nasal cannula. There has been some misleading documentation, chart oxygen this patient is requiring. Discussed with RN, will resume remdesivir to complete total of 5 days. Continue to monitor LFTs. Will add steroids, Rocephin, and azithromycin. 02/15: Afebrile. Became much more hypoxic overnight, requiring BiPAP. At the time of my evaluation she is still breathing on BiPAP. Consultation was placed to pulmonology. Had discussion with Dr. Myrick about initiating Tocilizumab 02/16: No acute events overnight. Patient becoming more hypoxic saturating 94% and requiring BiPAP. Patient will be transferred to the ICU at this time. For worsening clinical status. Discussed with pulmonary. Patient's chart, labs, images were reviewed and discussed with RN 02/17: Transferred to ICU yesterday afternoon. Seen and examined at bedside she remains on 100% FiO2 on BiPAP. Respirations do appear somewhat labored. Suspect intubation may be impending. We will closely monitor. Increase lisinopril to 20 today. 02/18: Patient required intubation yesterday afternoon. Saw and examined this morning. She is intubated and sedated. Increase insulin today. Covid protocol ordered. Wean as tolerated. Plan of care discussed with bedside nurse. 02/19: Bedside. She remains intubated and sedated. Continue Covid protocol. Wean oxygen sedation as tolerated. Pulmonary following. Plan of care discussed with bedside RN. 02/20: Patient seen and examined at bedside. She remains intubated and sedated. No major clinical changes. Continue current treatment. Pulmonary following. Plan of care discussed with bedside RN. 02/21: Patient seen and examined at bedside. Remains intubated and sedated date and admission clinical changes. Increase free water flushes today due to hypernatremia. Plan of care discussed with bedside nurse. 02/22: Patient seen and examined at bedside. O2 requirement actually improving, although remains intubated. Possible SBT in the coming days. Hypernatremia improving. Plan of care discussed bedside RN. 02/23: Patient remains in ICU on ventilator with FiO2 100%, PEEP 7. Repeat chest x-ray yesterday showed diffuse bilateral pulmonary opacities with no interval improvement. Will discontinue Rocephin and initiate Zosyn. We will continue IV steroids for a full 10-day course 02/24: Afebrile. On vent with FiO2 40%, PEEP 6. Her Coreg has been held due to persistent bradycardia. No documented history of systolic heart failure or previous echocardiogram. Will need to obtain echocardiogram prior to discharge. Continue IV steroids and antibiotics. 02/25: Afebrile. Remains ventilated with FiO2 45%, PEEP 6. Chest x-ray today showed slight improvement of the pulmonary infiltrates, no pneumothorax. Completed 10-day course of IV Decadron. Will initiate slow Solu-Medrol taper. Continue IV Zosyn. Continue supportive care. 02/26: Afebrile. On vent with FiO2 45%, PEEP 6. Completed 10 days of IV Decad vandana. Will continue IV Zosyn. Continue supportive care. Critical care time 30 minutes spent reviewing charts, reviewing imaging, reviewing labs, discussion with RN. 02/27: Afebrile. On vent with FiO2 45%, PEEP 6. Completed 10 days of steroids and completed remdesivir. Continue with IV Zosyn. CPAP trial yesterday. Continue NG tube and supportive care. 02/28:. Patient remains on vent with FiO2 40%, PEEP 5. Afebrile. Completed steroids and remdesivir. Some noted hypoglycemia overnight, will de-escalate b kelechi insulin. Continue IV Zosyn. Ventilator management per pulmonology. Continue NG tube and supportive care. 03/01: On vent with FiO2 40%, PEEP 5. Afebrile. Completed steroids and remdesivir. Blood glucose well controlled. Continue empiric antibiotics with Zosyn. Ventilator management per pulmonology. Continue NG tube and supportive care. 03/02: No acute events overnight. Patient hypotensive the morning due to oversedation. Will wean off sedation and keep antihypertensive medications on board. Currently saturating 100% on vent settings of 18/450/40/5. Will attempt spontaneous breathing trial today to see how patient does. 03/03: No acute events overnight. Patient saturating 98% on vent settings of 18/450/40/5. Will defer spontaneous breathing trials to pulmonary at this time. Patient's chart, labs, images were reviewed and discussed with RN 8/: No acute events overnight. Patient saturating 9 9% on vent settings of 18/450/30/5. Patient currently is unable to tolerate weaning. Per pulmonary. Patient's chart, labs, images were reviewed and discussed with RN 8/: No acute events overnight. Patient is saturating 97% on vent settings of 18/450/55/5. Her FiO2 needs to be increased due to abnormal ABG with 7.3 //24. Patient's chart, labs, images were reviewed and discussed with RN 8/: No acute events overnight. Patient saturating 94% on vent settings of 18/450/55/5. Chest x-ray showing increase in pulmonary infiltrates. Wound care is consulted for decubitus ulcer patient's chart, labs, images were reviewed and discussed with RN 8/28: No acute events overnight. Patient saturating 94% on vent settings of 20/450/70/8. Patient now heading into renal failure with her creatinine bumped up from 1.5-4.2. Decreased urine output. Plan for hemodialysis today and temporary catheter placement and nephrology is consulted. 03/08: No acute events overnight. Patient did have a nausea vomiting episode and tube feeds were held. KUB repeat shows NG tube still in the stomach. Will resume tube feeds at trickle and advance to goal today. Will start hemodialysis soon. 03/09: Seen on vent 20/450/60%/8. ABG 7.2 WBC 11.4, Hb 7.4, platelets 188, NA 131, K4.9, BUN 48, CR 51, glucose 199, phosphorus 7.9, mag 2.2, AST 265 ALT 219, albumin 1.1. Chest radiograph appears unchanged from prior. Dialysis x1 today 03/10: Afebrile. Seen on vent, 20/450/60/7 with ABG 7.3 . Tolerated dialysis well on 03/09. LFTs similar. 03/11: Afebrile. Seen on vent, sedated. Still requiring Levophed for BP support. WBC 16.7, Hb 8.1, NA 130, ABG 7.3 on 55% FiO2 PEEP 6. On Zosyn and Zyvox Diflucan. Dialysis today 03/12: Afebrile. Still requiring Levophed for BP support sedated with Versed febrile Precedex. WBC 16.1, Hb 8.5, platelets 185, NA 133. Trach plan tentatively 03/17. O2 saturations 93% on 50% FiO2 PEEP 6. ABG 7. On Zosyn and Zyvox Diflucan. 03/13: Afebrile. Still on Levophed for BP support lightly sedated. on 45% FiO2. Plan for dialysis today. On Zosyn and Zyvox Diflucan. More swollen today. 03/14: Afebrile. Weaning down off Levophed. WBC 14.9 NA 132. O2 saturations 92% on 45% FiO2 PEEP 5. Afebrile. O2 saturations 91% on FiO2 45% PEEP 6. Continued on Zosyn and Zyvox Diflucan. Tentative trach planned 03/17/2021 CC time 31 minutes 03/16/21: Patient seen and examined in ICU. Periorbital as well as upper and lower extremity edema noted. OG feed running at 30cc/hr. Still on vent on pressure control with a rate of 24 with 45% FiO2. Patient has rectal bag. Currently she has 98% O2 sat. Currently sedated with Dexmedetomidine, Propofol, Versed, and Fentanyl. Discussed with RN. Chart reviewed. 03/17/21: Patient was seen and examined in the ICU today. Periorbital edema as well as abdominal and mons pubis edema was noted. Patient still on vent on pressure control with Fi02 of 45% plus 6 PEEP. Patient had rectal bag. Currently sedated on Dexmedetomidine, Propofol, Versed, and Fentanyl. Discussed with RN. Chart reviewed. 03/18/21: Patient seen and examined in ICU. On vent via trach that was placed yesterday. Vent settings are Pressure Control of 40 with FiO2 of 45% and 6 PEEP. Trach clean and dry. Orbital swelling still present. Pupils are sluggish. Patient on TPN running at 30cc/hr. Kern to bedside and rectal bag in place. Current O2 sat at 94%. Sedated on Dexmedetomidine, Propofol, Versed, and Fentanyl. Discussed with RN. Chart reviewed. 03/19/21: Patient was seen and examined in the ICU today. Currently on vent via trach on pressure control of 42, rate of 24, FiO2 of 45%, and 6 PEEP. O2 sat is at 97% while patient is being examined. Trach is clean and dry. PICC line is in place on right arm. Periorbital swelling has decreased slightly since examined yesterday. Patient is sedated on Dexmedetomidine, Propofol, Versed, and Fentanyl. Discussed with RN. Chart reviewed. 03/20/21: Patient seen and examined in the ICU. Periorbital edema is slightly decreased since yesterday. O2 sat while being examined was 93%. NG tube in place and running at 30cc/hr. Patient on vent via trach on pressure control of 40 with FiO2 of 45 and rate of 24. Sedated on Dexmedetomidine, Propofol, Versed, and Fentanyl. PICC line in place. Kern to bedside. Rectal bag present. Discussed with RN. Chart reviewed. 03/21/21: Patient was seen and examined in the ICU today. She was semi-sedated.. She was on Dexmedetomidine and Fentanyl. We are holding the Propofol. Her eyes were periodically open but she was not making meaningful eye contact or tracking. On vent via trach with pressure control of 40 and FiO2 at 45. Rate was 24. PEEP was 5. Trach was clean and dry. While being examined, her O2 sat was 94%. Rectal bag and Kern to bedside in place. NG tube in place and feeding at 30cc/hr. IV fluids still running. Levophed has been stopped. Discussed with RN. Chart reviewed. 03/22/21: Patient was seen and examined in the ICU. She was semi-sedated on Propofol and Dexmedetomidine. Her eyes were open but she did not make meaningful eye contact. Her blood pressure was elevated (198/102) while being examined and she had just been given hydralazine to lower it. There are plans to place a PEG tube tomorrow. Currently on vent via trach on pressure control of 40 with FiO2 of 45%, 5 PEEP, and a rate of 24. Current O2 sat is 98%. She is feeding through an NG tube at 30cc/hr. Rectal bag and Kern to bedside present. SCDs on patient for DVT prophylaxis. She did not do her daily dialysis today but the plan is to start back on that tomorrow. Discussed with RN. Chart reviewed. 03/23/2021: Patient remains in ICU on ventilator. FiO2 40%, PEEP 5. Trach cultures positive for [place] albicans and acinebacter ursungi. We will continue treatment with IV antibiotics and micafungin, per ID. HD per nephrology. Plans for PEG tube placement today. 30 minutes critical care time was spent reviewing charts, reviewing labs, reviewing imaging, discussion with RN. 03/24/2021: Afebrile. On vent with FiO2 45%, PEEP 5. Had attempted PEG placement per GI yesterday, but unable to locate safe path for PEG; will consider surgical opinion. Once PEG is in place she should be stable for LTAC transfer when accepted. Continue antibiotics, per ID. 30 minutes critical care time was spent reviewing charts, reviewing labs, reviewing imaging, discussion with RN. 03/25/2021: Febrile overnight with T-max 101.5 F. On vent with FiO2 45%, PEEP 5. Surgery has been consulted with tentative plans for laparoscopic versus open gastrostomy placement tomorrow. Trach cultures positive for [place] albicans and now acinebacter ursungi; will continue antibiotic management, per ID. Hemodia lysis, per nephrology. Patient needing LTAC placement, but currently without benefits. barge worker following for discharge planning. Critical care time 30 minutes spent reviewing charts, reviewing labs, reviewing imaging, discussion with RN. 03/26/2021: Febrile today with T-max 100.5 F. Awake on vent with FiO2 45%, PEEP 5. When I ask if she remembers any she nods. G-tube placement scheduled for tomorrow, per general surgery. Chest x-ray today showed slight interval increase in diffuse infiltrate. Continue antibiotic management, per ID. Hemodialysis per nephrology. Reportedly did not tolerate CPAP trial this morning. barge worker following for LTAC placement. Critical care time 30 minutes spent reviewing charts, reviewing labs, reviewing imaging, discussion with RN. 03/27/2021: On vent with FiO2 45%, PEEP 5. Afebrile today. Continue treatment of acute renal failure requiring HD, per nephrology. Monitor kidney function for recovery. G-tube placement scheduled for today, per general surgery. Likely LTAC placement soon, but this is been a difficult as she is self-pay without benefits; social work msw following. Critical care time 30 minutes spent reviewing charts, reviewing labs, reviewing imaging, discussion with RN. 03/28/2021: Afebrile. On vent with FiO2 40%, PEEP 5. Had laparoscopic gastrostomy tube placed yesterday, per general surgery. Continue treatment of acute renal failure requiring HD, per nephrology. Continue IV antibiotics, per ID. Likely LTAC placement soon, but this is been a difficult as she is self-pay without benefits; social work msw following. Critical care time 30 minutes spent reviewing charts, reviewing labs, reviewing imaging, discussion with RN. 03/29/2021: Afebrile. On vent with FiO2 45%, PEEP 5. S/P laparoscopic gastrostomy tube; tube feeds running. HD, per nephrology. Continue meropenem, per ID. Anticipate LTAC placement soon now that PEG has being placed; social work msw helping in these regards. Critical care time 30 minutes spent reviewing charts, reviewing labs, reviewing imaging, discussion with RN. 03/30 No major events or clinical changes overnight. Patient evaluated at bedside this morning on trach and G-tube. Tolerating these well. Has been working on insurance for patient for placement as she will need long-term care. Guarded prognosis. Plan of care discussed with bedside nurse. 03/31 No major clinical changes. Remains trached. Sedated. Continue current plan. 04/01 No changes. Patient resting in bed when evaluated sedated. is supposed to be working on insurance for placement for the patient. Otherwise no changes. 04/02 Patient febrile overnight, daptomycin added this morning per infectious disease. Otherwise no major clinical changes. Awaiting insurance. Infectious disease, pulmonary and renal following. Plan of care discussed with bedside RN. 04/03 Patient undergoing dialysis today. Evaluated at bedside this morning. otherwise continue current plan. supposed working on insurance. 04/04 No major overnight changes. Continue current plan. 04/05 Patient notably more movement this morning eyes open resting in bed otherwise no major changes. Continue current plan. Insurance pending. 04/06 Patient notably more movement this morning eyes open resting in bed current plan. Insurance pending. Continue daptomycin, renal dosing April 02 F/U Blood culture UA urine culture C. diff PCR negative 32 min cc time 04/07 Patient notably more movement this morning eyes open resting in bed current plan. Insurance pending. Continue daptomycin, renal dosing April 02 F/U Blood culture UA urine culture C. diff PCR negative Abnormal chest x-ray consistent with COVID-19 viral pneumonia. Diabetic ketoacidosis--resolved obesity contributing to hypoxia as well. BOB . hemodialysis started 03/07 DVT GI prophylaxis Nutritional support 34 min cc time 04/08 Patient notably more movement this morning eyes open resting in bed current plan. Insurance pending. Continue daptomycin, renal dosing April 02 F/U Blood culture UA urine culture C. diff PCR negative s/p lap G-tube 03/27 Abnormal chest x-ray consistent with COVID-19 viral pneumonia. Diabetic ketoacidosis--resolved obesity contributing to hypoxia as well. BOB . hemodialysis started 03/07 DVT GI prophylaxis Nutritional support Right PICC line February 14 out; left PICC line 04/07/2021 Right IJ HDC clean March 07 32 min cc time 04/09 non Oliguric for past 11/2 -2 weeks , good response to IV NS bolus .requiring dialysis., currently on MWF schedule, tolerating trach shield well.using her speaking valve./ resting in bed current / states she feels better Start iv Zyvox Cont Meropenem DC daptomycin post PICC line exchange aspiration precautions C. diff PCR negative F/U Blood culture UA urine culture s/p lap G-tube 03/27 Abnormal chest x-ray consistent with COVID-19 viral pneumonia. Diabetic ketoacidosis--resolved obesity contributing to hypoxia as well. BOB . hemodialysis started 03/07 DVT GI prophylaxis Nutritional support Right PICC line February 14 out; left PICC line 04/07/2021 Right IJ HDC clean March 07 34 min cc time Vitals/I&O Vitals/I&O: Vital Signs Date Time Temp Pulse Resp B/P (MAP) Pulse Ox O2 Delivery O2 Flow Rate FiO2 04/15/21 08:54 106 176/105 04/15/21 06:10 98 8.0 04/15/21 05:12 Tracheal Collar 04/15/21 03:15 98.9 98.9 04/15/21 00:00 13 I & O 04/14/21 04/14/21 04/15/21 15:00 23:00 07:00 Intake Total 158 ml 0 ml Output Total 725 ml 485 ml 750 ml Balance -725 ml -327 ml -750 ml Physical Exam Physical Exam: GENERAL: Awake, pleasantly confused HEENT: Normocephalic, atraumatic. Anicteric. Slight bilateral periorbital edema. Latter improving Neck right IJ HDC clean Trach + capped LUNGS: Rhonchi. HEART: S1, S2. No murmurs. ABDOMEN: Obese, soft. Bowel sounds present. Nontender, nondistended. PEG tube pulled out by patient GENITOURINARY: Kern and fecal tube in place. EXTREMITIES: Edema present no cyanosis. CENTRAL NERVOUS SYSTEM: Intubated. PSYCHIATRIC: Confused Derm has pressure wounds wound pictures noted in chart. Generalized rash, Right PICC line removed; left PICC line 04/07/2021 Right IJ HDC clean March 07 General: Alert, Oriented X3, Cooperative Heart: Regular rate, Normal S1, Normal S2 Lungs: Clear, Other (Has trach in place) Abdomen: Soft, Other (ND) Extremities: No cyanosis, Other (ANASARCA) Skin: No rashes, No significant lesion Labs Labs: Laboratory Tests Test 04/14/21 11:52 04/14/21 18:18 04/14/21 23:58 04/15/21 05:30 Glucose (Fingerstick) 274 mg/dL (70-99) 332 mg/dL (70-99) 216 mg/dL (70-99) 286 mg/dL (70-99) Test 04/15/21 05:45 Sodium Level 141 mmol/L (136-145) Potassium Level 3.1 mmol/L (3.5-5.1) Chloride Level 102 mmol/L (98-107) Carbon Dioxide Level 26 mmol/L (21-32) Anion Gap 13 (6-14) Blood Urea Nitrogen 59 mg/dL (7-20) Creatinine 2.3 mg/dL (0.6-1.0) Estimated GFR (Cockcroft-Gault) 22.9 Glucose Level 309 mg/dL (70-99) Calcium Level 9.3 mg/dL (8.5-10.1) Assessment and Plan Assessmemt and Plan Problems Medical Problems: (1) Ketoacidosis Status: Acute COVID-19 respiratory failure DKA Hypotension Status post 2nd new PEG placement yesterday Nausea Vomiting Combined metabolic and respiratory acidosis Acute electrolyte derangementhyponatremia, hypochloremia due to volume depletion Hyperglycemia BOB due to ATN, requiring dialysis Erythrocytosis Candiduria Sacral decubitus ulcer S/P Trach on (03/17/21) Trach cultures positive for [place] albicans and now acinebacter ursungi Plan We will try to transfer out of ICU to the medical floor once off of the sedation Continue PEG feeds at 30 cc an hour for now Continue Precedex and fentanyl with as needed Ativan Schedule Prozac 20 a day Cardiac monitoring Home meds Trend labs DVT prophylaxis PT OT speech therapy Full code Continue other treatments Appreciate subspecialist input Prognosis guarded but very slowly improving Comment Review of Relevant I have reviewed the following items mazin (where applicable) has been applied. Justifications for Admission Other Justification DIANELYS LBACKMON III DO Apr 15, 2021 08:57
--- NOTE | 2021-04-15 09:09 | PDOC ---
Infectious Disease Note Subjective: Subjective Patient without complaints No acute issues per discussion with RN Vital Signs: Vital Signs Vital Signs Date Time Temp Pulse Resp B/P (MAP) Pulse Ox O2 Delivery O2 Flow Rate FiO2 04/15/21 08:54 106 176/105 04/15/21 06:10 98 8.0 04/15/21 05:12 Tracheal Collar 04/15/21 03:15 98.9 98.9 04/15/21 00:00 13 Physical Exam: PHYSICAL EXAM GENERAL: Awake, pleasantly confused HEENT: Normocephalic, atraumatic. Anicteric. Slight bilateral periorbital edema. Latter improving Neck right IJ HDC clean Trach + capped LUNGS: Rhonchi. HEART: S1, S2. No murmurs. ABDOMEN: Obese, soft. Bowel sounds present. Nontender, nondistended. PEG tube pulled out by patient GENITOURINARY: Kern and fecal tube in place. EXTREMITIES: Edema present no cyanosis. CENTRAL NERVOUS SYSTEM: Intubated. PSYCHIATRIC: Confused Derm has pressure wounds wound pictures noted in chart. Generalized rash, Right PICC line removed; left PICC line 04/07/2021 Right IJ HDC clean March 07 Medications: Inpatient Meds: Medications reviewed. Labs: Lab Laboratory Tests Test 04/14/21 11:52 04/14/21 18:18 04/14/21 23:58 04/15/21 05:30 Glucose (Fingerstick) 274 mg/dL (70-99) 332 mg/dL (70-99) 216 mg/dL (70-99) 286 mg/dL (70-99) Test 04/15/21 05:45 Sodium Level 141 mmol/L (136-145) Potassium Level 3.1 mmol/L (3.5-5.1) Chloride Level 102 mmol/L (98-107) Carbon Dioxide Level 26 mmol/L (21-32) Anion Gap 13 (6-14) Blood Urea Nitrogen 59 mg/dL (7-20) Creatinine 2.3 mg/dL (0.6-1.0) Estimated GFR (Cockcroft-Gault) 22.9 Glucose Level 309 mg/dL (70-99) Calcium Level 9.3 mg/dL (8.5-10.1) Micro GRAM STAIN EVALUATION Final Final This specimen is of good quality and is acceptable for routine bacterial culture. Culture results to follow. NO ORGANISMS SEEN. SQUAMOUS EPI CELL:RARE PMN (WBCs):MODERATE Unless otherwise specified, Testing Performed by: [facility] [address] [place] [address] For Inquires, the Physician may contact the Microbiology department at [phone] RESPIRATORY CULTURE Final Final MODERATE GRAM NEGATIVE RODS on 03/18/21 at 1120 FINAL ID= [ACINETOBACTER URSINGII.] ACINETOBACTER URSINGII. ANTIMICROBIAL SUSCEPTIBILITY Final Comment NEG SAGE 56 ACINETOBACTER URSINGII. ANTIBIOTIC RESULT INTERPRETATION AMPICILLIN/SULBACTAM <=4/2 S AMIKACIN <=16 S CEFTRIAXONE 2 S CEFTAZIDIME 16 I CEFOTAXIME 16 I CIPROFLOXACIN <=0.25 S CEFEPIME 4 S GENTAMICIN <=2 S LEVOFLOXACIN <=0.5 S RUN DATE: 03/19/21 [facility] *LIVE* PAGE 2 RUN TIME: 1120 Specimen Inquiry SPEC: [id number] PATIENT: ARIADNA BANKS [id number] (Continued) Procedure Result CONTINUED ON NEXT PAGE RUN DATE: 03/19/21 [facility] *LIVE* PAGE 3 RUN TIME: 1120 Specimen Inquiry SPEC: [id number] PATIENT: ARIADNA BANKS [id number] (Continued) Procedure Result ANTIMICROBIAL SUSCEPTIBILITY Final (continued) MINOCYCLINE <=4 S MEROPENEM <=1 S TRIMETHOPRIM/SULFAMETHOXAZOLE <=0.5/9.5 S TOBRAMYCIN <=2 S Unless otherwise specified, Testing Performed by: [address] [address] For Inquires, the Physician may contact the Microbiology department at [phone] Culture negative Objective: Assessment: 1. Febrile illness. Resolved 2. COVID-19 infection present on date of admission, 02/06/2021. Status post remdesivir, dexamethasone. 3. Acute hypoxic respiratory failure, status post intubation. S/P Trach on 03/17 Trach cultures positive for Rock albicans and now acinebacter ursungi 4. Diabetes. 5. Diarrhea. 6. Hypertension. 7. Hyperlipidemia. 8. Anemia. 9. BOB on HD 10.UC rock albican, ua neg 11. Nausea and vomiting 12. Leukocytosis likely reactive as patient had nausea and vomiting has pulled out PEG tube Plan: Plan of Care Monitor off antibiotics Leukocytosis appears to be reactive Maintain aspiration precautions Status post PICC line exchange Monitor lab and cultures C. 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 KAITLYNN CRAIG MD Apr 15, 2021 09:09
--- NOTE | 2021-04-15 09:28 | PDOC ---
DATE OF SERVICE DATE: 04/15/21 TIME: 09:19 SUBJECTIVE ROS Stable, Resting comfortably, No concerns voiced by RN No SOB, No N/V Failed swallow study; Gastrostomy tube replaced 04/14 OBJECTIVE Vital Signs Vital Signs Date Time Temp Pulse Resp B/P (MAP) Pulse Ox O2 Delivery O2 Flow Rate FiO2 04/15/21 08:54 106 176/105 04/15/21 06:10 98 8.0 04/15/21 05:12 Tracheal Collar 04/15/21 03:15 98.9 98.9 04/15/21 00:00 13 I & 0 Intake and Output 04/15/21 07:00 Intake Total 158 ml Output Total 1960 ml Balance -1802 ml Intake Oral 0 ml IV Total 128 ml Tube Feeding 30 ml Output Urine Total 1960 ml # Bowel Movements 1 PHYSICAL EXAM Physical Exam GENERAL: NAD , Trach collar HEENT: Anicteric. . Neck Trach+ LUNGS: decreased at bases HEART: S1, S2. No murmurs. ABDOMEN: Obese, soft. Bowel sounds present. PEG + GENITOURINARY: Kern in place. EXTREMITIES: Edema present no cyanosis. DIAGNOSIS/ASSESSMENT Assessment & Plan BOB-ATN- was anuric initially , non Oliguric with good uop , Required dialysis , last was on Tuesday (04/10) . Dialysis held ,Renal function improving E-Lytes, Resp status stable. Currently no indication for dialysis today Supportive care, I/O avoid nephrotoxins, Monitor for recovery Access- temp HDC HypoNatremia - resolved stable HypoKalemia - K Normal since TF Change from Nepro to Normal K TF . Gastrostomy tube replaced 04/14 DM 2 - Glucosuria + POA COVID 19 Pneumonia - Unvaccinated , treated, Off isolation Acute Resp Failure- Intubated ; CxR 04/01 Moderate diffuse pulmonary opacities, slightly decreased compared to prior. HTN BP very high during hospitalization. She reports no Hx of HTN , states was on lisinopril for Renoprotection with Hx of DM Anemia -avoid DOYLE 2/2 to Thrombogenic state Family History of ESRD - Per at bedside- Pt's Mom was on dialysis and sister is on Dialysis COMMENT/RELEVANT DATA Meds Current Medications Medications (Trade) Dose Ordered Sig/Pepe Start Time Stop Time Status Last Admin Dose Admin Acetaminophen (Tylenol Supp) 650 mg PRN Q6HRS PRN 02/08/21 01:45 02/17/21 10:45 DC Acetaminophen (Tylenol) 500 mg 1X PRN PRN 03/17/21 13:30 03/18/21 13:29 DC Albumin Human 200 ml @ 200 mls/hr 1X PRN PRN 04/06/21 08:45 04/06/21 14:44 DC 04/06/21 10:43 200 MLS/HR Albuterol Sulfate (Ventolin Hfa) 60 puff STK-MED ONCE 03/17/21 11:29 03/17/21 11:29 DC Albuterol/ Ipratropium (Duoneb) 3 ml RTQID 04/15/21 10:00 Alteplase, Recombinant (Cathflo For Central Catheter Clearance) 1 mg 1X ONCE 02/27/21 14:30 02/27/21 14:36 DC 02/27/21 15:19 1 MG Alteplase, Recombinant (Cathflo) 2 mg 1X ONCE 02/27/21 11:00 02/27/21 11:01 DC 02/27/21 11:20 2 MG Amlodipine Besylate (Norvasc) 10 mg DAILY 03/31/21 09:00 04/15/21 08:53 10 MG Atorvastatin Calcium (Lipitor) 40 mg HS 02/08/21 21:00 04/14/21 21:03 40 MG Atropine Sulfate (ATROPINE 0.5mg SYRINGE) 0.5 mg PRN Q5MIN PRN 02/16/21 12:00 Azithromycin 250 mg/Sodium Chloride 250 ml @ 250 mls/hr Q24H 02/14/21 13:30 02/18/21 14:29 DC 02/18/21 11:51 250 MLS/HR Benzonatate (Tessalon Perle) 100 mg [id number] 02/10/21 23:30 02/17/21 10:45 DC 02/16/21 22:07 100 MG Bupivacaine HCl/ Epinephrine Bitart (Sensorcain-Epi 0.5% Kit) 30 ml STK-MED ONCE 03/27/21 10:05 03/27/21 10:05 DC 03/27/21 13:12 16 ML Bupivacaine HCl/ Epinephrine Bitart (Sensorcain-Epi 0.5%-1:[id number] Mpf) 30 ml STK-MED ONCE 03/17/21 10:47 03/17/21 10:47 DC Carvedilol (Coreg) 6.25 mg [id number] 02/08/21 20:30 02/23/21 15:50 DC 02/23/21 08:06 6.25 MG Cefazolin Sodium/ Dextrose (Ancef 2gm Premix) 2 gm STK-MED ONCE 03/23/21 13:00 03/24/21 11:58 DC Ceftriaxone Sodium (Rocephin) 1 gm Q24H 02/14/21 13:00 02/23/21 07:34 DC 02/22/21 12:42 1 GM Cellulose (Surgicel Fibrillar 1x2) 1 each STK-MED ONCE 03/17/21 10:47 03/17/21 10:47 DC 03/17/21 11:56 1 EACH Daptomycin 480 mg/ Sodium Chloride 50 ml @ 100 mls/hr QMWF 03/23/21 16:00 03/26/21 10:29 DC 03/25/21 19:52 100 MLS/HR Daptomycin 500 mg/ Sodium Chloride 50 ml @ 100 mls/hr Q48H 04/02/21 10:00 04/09/21 10:52 DC 04/08/21 13:14 100 MLS/HR Dexamethasone Sodium Phosphate (Decadron) 2 mg 1X ONCE 02/27/21 09:00 02/26/21 07:15 DC Dexmedetomidine HCl 400 mcg/ Sodium Chloride 100 ml @ 0 mls/hr CONT PRN 02/27/21 09:45 04/15/21 05:36 0.2 MLS/HR Dextrose (Dextrose 50%-Water Syringe) 12.5 gm PRN Q15MIN PRN 03/01/21 13:00 03/01/21 12:55 12.5 GM Diphenhydramine HCl (Benadryl) 25 mg 1X PRN PRN 03/17/21 13:30 03/18/21 13:29 DC Docusate Sodium (Colace Solution) 100 mg BID 02/23/21 12:00 04/09/21 21:47 100 MG Docusate Sodium (Colace) 100 mg PRN DAILY PRN 02/07/21 08:45 02/23/21 10:47 DC Enalaprilat (Vasotec Inj) 0.625 mg Q6HRS 02/08/21 16:15 02/09/21 16:01 DC 02/09/21 13:42 0.625 MG Enoxaparin Sodium (Lovenox 30mg Syringe) 30 mg Q24H 03/08/21 09:00 03/12/21 15:38 DC 03/12/21 09:04 30 MG Enoxaparin Sodium (Lovenox 40mg Syringe) 40 mg BID 02/09/21 09:00 03/08/21 13:56 DC 03/08/21 08:26 40 MG Enoxaparin Sodium (Lovenox Per Pharmacy Prophylaxis Dosing) 1 each PRN DAILY PRN 02/09/21 06:45 03/12/21 15:38 DC Ephedrine Sulfate (ePHEDrine PF IN SALINE SYRINGE) 50 mg STK-MED ONCE 03/17/21 10:56 03/17/21 10:56 DC Famotidine (Pepcid Vial) 20 mg DAILY 03/10/21 09:00 04/15/21 08:53 20 MG Fentanyl (Duragesic 25mcg/ Hr Patch) 1 patch Q3DAYS 04/13/21 13:00 04/13/21 14:28 1 PATCH Fentanyl Citrate (Fentanyl 2ml Vial) 100 mcg 1X ONCE 04/13/21 14:00 04/13/21 14:03 DC 04/13/21 13:54 50 MCG Fluconazole/ Sodium Chloride 100 ml @ 100 mls/hr Q24H 03/07/21 09:00 03/17/21 08:03 DC 03/16/21 08:29 100 MLS/HR Fluoxetine HCl (PROzac) 20 mg 1X ONCE 04/10/21 11:15 04/10/21 11:34 DC Furosemide (Lasix) 40 mg 1X ONCE 03/29/21 15:00 03/29/21 15:02 DC 03/29/21 15:22 40 MG Glycerin/ Hypromellose/ Polyethylene (Artificial Tears) 1 drop PRN Q1HR PRN 02/17/21 10:00 04/05/21 08:02 1 DROP Glycopyrrolate (Robinul) 1 mg STK-MED ONCE 03/27/21 14:07 03/27/21 14:07 DC Guaifenesin (Robitussin Dm) 10 ml PRN Q6HRS PRN 02/10/21 23:30 02/16/21 09:06 10 ML Haloperidol Lactate (Haldol Inj) 5 mg Q8HRS 04/01/21 11:30 04/07/21 14:58 DC 04/07/21 05:51 5 MG Heparin Sodium (Porcine) (Heparin Sodium) 5,000 unit Q8HRS 03/13/21 06:00 04/15/21 05:41 5,000 UNIT Hydralazine HCl (Apresoline Inj) 10 mg PRN Q4HRS PRN 02/11/21 12:15 04/13/21 11:44 10 MG Hydromorphone HCl (Dilaudid) 0.5 mg PRN Q10MIN PRN 03/27/21 06:00 03/28/21 05:59 DC Info (CONTRAST GIVEN -- Rx MONITORING) 1 each PRN DAILY PRN 04/13/21 13:45 04/15/21 13:44 Info (PHARMACY MONITORING -- do not chart) 1 each PRN DAILY PRN 04/10/21 13:30 Cancel Insulin Glargine (Lantus Syringe) 5 unit BID 03/06/21 09:00 04/15/21 08:55 5 UNIT Insulin Human Lispro (HumaLOG) 12 units Q6HRS 02/20/21 12:00 02/28/21 15:38 DC 02/27/21 05:41 12 UNITS Insulin Human Regular 100 ml @ 10 mls/hr 1X ONCE 02/07/21 06:30 02/07/21 16:54 DC 02/07/21 09:31 6.5 MLS/HR Insulin Human Regular 100 unit/ Sodium Chloride 101 ml @ 0 mls/hr CONT PRN PRN 02/07/21 06:00 02/07/21 16:54 DC Iohexol (Omnipaque 240 Mg/ml) 50 ml 1X ONCE 04/13/21 13:45 04/13/21 13:46 DC 04/13/21 13:45 28 ML Labetalol HCl (Normodyne Iv Push) 10 mg PRN Q2HR PRN 02/08/21 00:45 04/15/21 08:54 10 MG Lactobacillus Rhamnosus (Culturelle) 1 cap BID 02/16/21 21:00 02/17/21 10:45 DC 02/16/21 22:02 1 CAP Lidocaine HCl (Buffered Lidocaine 1%) 3 ml STK-MED ONCE 03/07/21 13:25 03/07/21 13:25 DC Linezolid (Zyvox) 600 mg BID 03/05/21 09:00 03/12/21 07:00 DC 03/11/21 20:33 600 MG Linezolid/Dextrose 300 ml @ 300 mls/hr Q12HR 04/09/21 12:00 04/11/21 12:54 DC 04/11/21 09:59 300 MLS/HR Lisinopril (Prinivil) 20 mg DAILY 02/17/21 09:00 03/09/21 10:43 DC 02/27/21 09:10 20 MG Lorazepam (Ativan Inj) 1 mg PRN Q2HR PRN 04/10/21 11:15 Magnesium Sulfate 50 ml @ 25 mls/hr PRN DAILY PRN 04/04/21 13:00 Meropenem 1 gm/ Sodium Chloride 100 ml @ 200 mls/hr Q24H 03/18/21 17:00 04/10/21 11:57 DC 04/09/21 17:00 200 MLS/HR Methylprednisolone Sodium Succinate (SOLU-Medrol 125MG VIAL) 80 mg Q8HRS 02/25/21 09:00 02/26/21 07:09 DC 02/26/21 05:52 80 MG Metoclopramide HCl (Reglan Vial) 10 mg PRN Q6HRS PRN 02/08/21 00:45 02/12/21 15:51 10 MG Micafungin Sodium 100 mg/Dextrose 100 ml @ 100 mls/hr Q24H 03/21/21 18:00 03/25/21 10:27 DC 03/24/21 16:36 100 MLS/HR Midazolam HCl (Versed) 2 mg 1X ONCE 04/13/21 14:00 04/13/21 14:03 DC 04/13/21 13:54 2 MG Morphine Sulfate (Morphine Sulfate) 1 mg PRN Q10MIN PRN 03/27/21 06:00 03/28/21 05:59 DC Multi-Ingred Cream/Lotion/Oil/ Oint (Artificial Tears Eye Ointment) 1 reji PRN Q1HR PRN 03/17/21 17:30 03/20/21 15:55 1 REJI Multivitamins/ Minerals Therapeutic (Centrum Multivit-Mineral Liq) 5 ml DAILY 03/14/21 09:00 04/15/21 08:53 5 ML Naloxone HCl (Narcan) 0.4 mg PRN Q2MIN PRN 03/27/21 14:30 Neostigmine [place] (Neostigmine Methylsulfate) 5 mg STK-MED ONCE 03/27/21 14:06 03/27/21 14:07 DC Norepinephrine Bitartrate 8 mg/ Dextrose 258 ml @ 21.711 mls/ hr CONT PRN 03/06/21 13:45 03/19/21 18:45 23.3 MLS/HR Nystatin (Nystop) 1 reji BID 03/02/21 21:00 04/15/21 08:55 1 REJI Ondansetron HCl (Zofran Odt) 4 mg 1X ONCE 02/06/21 23:30 02/06/21 23:31 DC 02/06/21 23:57 4 MG Ondansetron HCl (Zofran) 4 mg STK-MED ONCE 04/13/21 13:33 04/13/21 13:33 DC Phenylephrine HCl (PHENYLEPHRINE in 0.9% NACL PF) 1 mg STK-MED ONCE 03/27/21 13:46 03/27/21 13:46 DC Piperacillin Sod/ Tazobactam Sod (Zosyn Per Pharmacy) 1 each PRN DAILY PRN 02/23/21 07:45 03/17/21 10:04 DC Piperacillin Sod/ Tazobactam Sod 2.25 gm/Sodium Chloride 50 ml @ 100 mls/hr Q8HRS 03/07/21 14:00 03/17/21 08:03 DC 03/17/21 05:58 100 MLS/HR Piperacillin Sod/ Tazobactam Sod 3.375 gm/Sodium Chloride 50 ml @ 100 mls/hr Q6HRS 03/14/21 18:00 Cancel Piperacillin Sod/ Tazobactam Sod 4.5 gm/Sodium Chloride 100 ml @ 200 mls/hr Q6HRS 02/23/21 08:00 03/07/21 08:18 DC 03/07/21 06:12 200 MLS/HR Potassium Chloride/Water 100 ml @ 100 mls/hr Q1H 04/04/21 14:00 04/04/21 15:59 DC 04/04/21 15:12 100 MLS/HR Potassium Chloride (Klor-Con) 40 meq 1X ONCE 02/13/21 12:00 02/13/21 12:01 DC 02/13/21 13:21 40 MEQ Prochlorperazine Edisylate (Compazine) 5 mg PACU PRN PRN 03/27/21 06:00 03/28/21 05:59 DC Propofol (Diprivan) 200 mg STK-MED ONCE 03/27/21 12:02 03/27/21 12:03 DC Remdesivir 100 mg/ Sodium Chloride 230 ml @ 460 mls/hr Q24H 02/15/21 12:00 02/18/21 12:29 DC 02/18/21 11:52 460 MLS/HR Remdesivir 200 mg/ Sodium Chloride 210 ml @ 210 mls/hr 1X ONCE 02/11/21 13:00 02/12/21 11:55 DC 02/11/21 14:33 210 MLS/HR Ringer's Solution 1,000 ml @ 30 mls/hr Q24H 03/27/21 06:00 03/27/21 17:59 DC Rocuronium [place] (Zemuron) 50 mg STK-MED ONCE 03/27/21 13:16 03/27/21 13:17 DC Sennosides (Senna) 17.2 mg PRN BID PRN 02/07/21 08:45 02/22/21 08:29 17.2 MG Sevoflurane (Ultane) 60 ml STK-MED ONCE 03/27/21 14:19 03/27/21 14:20 DC Sodium Chloride 500 ml @ 500 mls/hr 1X ONCE 04/08/21 16:45 04/08/21 17:44 DC 04/08/21 17:10 500 MLS/HR Sodium Chloride (Normal Saline Flush) 3 ml QSHIFT PRN 03/27/21 14:30 Succinylcholine Chloride (Anectine) 200 mg STK-MED ONCE 02/17/21 10:00 02/25/21 08:40 DC Vancomycin HCl (Vanco Per Pharmacy) 1 each PRN DAILY PRN 03/04/21 18:30 03/05/21 08:59 DC 03/04/21 19:47 1 EACH Vancomycin HCl (Vancomycin Trough Level) 1 each 1X ONCE 03/06/21 07:00 03/06/21 07:01 Cancel Vancomycin HCl 1.5 gm/Sodium Chloride 500 ml @ 250 mls/hr Q12H 03/05/21 07:30 03/05/21 08:58 DC Vancomycin HCl 1 gm/Sodium Chloride 250 ml @ 250 mls/hr Q12H 03/04/21 20:00 UNV Vancomycin HCl 2 gm/Sodium Chloride 500 ml @ 250 mls/hr 1X ONCE 03/04/21 19:00 03/04/21 20:59 DC 03/04/21 19:26 250 MLS/HR Vecuronium [place] (Norcuron Bolus) 6 mg PRN Q2HRS PRN 03/06/21 14:30 03/16/21 10:16 5 MG Vitamin A/Vitamin D (Vitamin A & D Ointment) 1 reji PRN Q1HR PRN 03/10/21 01:45 03/20/21 09:34 1 REJI Zolpidem Tartrate (Ambien) 5 mg PRN QHS PRN 04/10/21 11:15 Lab Laboratory Tests Test 04/14/21 11:52 04/14/21 18:18 04/14/21 23:58 04/15/21 05:30 Glucose (Fingerstick) 274 mg/dL (70-99) 332 mg/dL (70-99) 216 mg/dL (70-99) 286 mg/dL (70-99) Test 04/15/21 05:45 Sodium Level 141 mmol/L (136-145) Potassium Level 3.1 mmol/L (3.5-5.1) Chloride Level 102 mmol/L (98-107) Carbon Dioxide Level 26 mmol/L (21-32) Anion Gap 13 (6-14) Blood Urea Nitrogen 59 mg/dL (7-20) Creatinine 2.3 mg/dL (0.6-1.0) Estimated GFR (Cockcroft-Gault) 22.9 Glucose Level 309 mg/dL (70-99) Calcium Level 9.3 mg/dL (8.5-10.1) Results All relevant outside records, renal labs, imaging studies, telemetry/EKG's were reviewed. Other Pt pulled out, fluoro time: 5.3 min dose: 55 Gycm2 Mod Sed: 20 min PROCEDURE: 12364 REPLACE G/C TUBE PERC Fluoroscopically guided replacement of gastrostomy tube through pre-existing tract 04/13/2021 INDICATION: Relatively recently placed surgical gastrostomy tube inadvertently removed approximately 3 days ago. Discussion: Consent: The procedure was explained in its entirety to the patient or the patients designated computer help desk representative by a member of the treatment team, including a discussion of the risks, benefits and commonly accepted alternatives to the procedure, as well as the expected consequences of no therapy whatsoever. Discussion of the risks included, but was not limited to, those that are most frequent and those that are rare but possibly severe or life-threatening, as well as the possibility of unforeseen complications. The anterior abdomen was prepped and draped using clean barrier technique. The prior gastrostomy exit site was inspected, without overt infection. The tract was gently probed, under fluoroscopy, with a guidewire and catheter until the gastric lumen was entered. The hydrophilic wire was replaced with an Amplatz wire over which a new 18 [place] gastrostomy tube was placed. Fluoroscopic imaging including the administration of and enteric contrast was performed confirming intragastric positioning. The retention balloon was inflated and retracted against the anterior gastric wall. Sterile dressings were applied. No immediate complications were identified. Total fluoroscopy time 5.3 minutes Dose area product 55 Subramanian centimeter squared Sedation: The procedure was performed under conscious sedation including continuous cardiopulmonary monitoring via a dedicated sedation nurse. [id number] sedation time: 20 minutes IMPRESSION: Fluoroscopically guided replacement of percutaneous gastrostomy tube through pre-existing tract Electronically signed by: Owen De La Torre MD (04/13/2021 4:20 PM) [id number] Justicifation of Admission Dx: Justifications for Admission: Justification of Admission Dx: N/A GIGI CARMEN MD Apr 15, 2021 09:28
[2021-04-15] MEDS: IPRATRPIUM/ALBUTEROL 0.5/2.5MG 3 ML NEBU. NEB SCH ×3 (10:00→20:17)
[2021-04-15] MEDS: POTASSIUM CHLORIDE 20MEQ 100 ML IV SCH ×2 (11:14→15:05)
--- NOTE | 2021-04-15 14:30 | NUR ---
Pt transferred to room 670 via bed with all belongings. Brian notified of transfer.
--- NOTE | 2021-04-15 14:49 | NUR ---
SS following up with discharge planning. SS reviewed pt chart and discussed with pt RN. Pt is currently on room air. COVID19 recovered. Trach in place. Possible removal of trach soon if pt continues to improve. ST following. NPO. G-tube in place. PT/OT recommended acute rehabilitation. Pt is self pay. Med Assist following. Pt currently has no benefits for inpatient rehabilitation. Applications for Medicaid and Disability submitted. SS left message for Med [facility]ist requesting update. Pt transferred to room 670. SS will continue to follow for discharge planning.
--- NOTE | 2021-04-15 19:35 | NUR ---
Pt in bed at bedside assessment completed vss poc explained pt denied pain at this time. Pt anxious and stating she was unable to get enough air, pt on room air with trach/speaking valve. Breathing treatment given call light i n reach will resume care and continue to monitor pt.
[2021-04-15] MEDS: ATORVASTATIN CALCIUM 40 MG TABLET. PO SCH (21:05)
[2021-04-16] VITALS (7 sets, daily range): BP systolic 110–208; BP diastolic 59–93
[2021-04-16] MEDS: INSULIN LISPRO 300 UNITS/3 ML VIAL. SQ SCH ×4 (00:12→23:56)
[2021-04-16] MEDS: HEPARIN for SUB-Q USE 5,000 UNIT/ML VIAL. SQ SCH ×3 (05:28→21:43)
[2021-04-16] MEDS: IPRATRPIUM/ALBUTEROL 0.5/2.5MG 3 ML NEBU. NEB SCH ×4 (07:19→21:00)
[2021-04-16] MEDS: DOCUSATE 100 MG/10 ML SOLUTION. PO SCH ×2 (07:54→21:36)
--- NOTE | 2021-04-16 07:58 | PDOC ---
Infectious Disease Note Subjective: Subjective Patient tx out of icu yesterday States feels okay, but has some cough Denies fever, nausea, vomiting, abdominal pain or chest pain Vital Signs: Vital Signs Vital Signs Date Time Temp Pulse Resp B/P (MAP) Pulse Ox O2 Delivery O2 Flow Rate FiO2 04/16/21 07:38 99.2 126 22 159/87 (111) 100 Tracheal Collar 99.2 04/15/21 07:00 8.0 Physical Exam: PHYSICAL EXAM GENERAL: Awake, pleasantly confused HEENT: Normocephalic, atraumatic. Anicteric. Slight bilateral periorbital edema. Latter improving Neck right IJ HDC clean Trach + capped LUNGS: Rhonchi. HEART: S1, S2. No murmurs. ABDOMEN: Obese, soft. Bowel sounds present. Nontender, nondistended. PEG tube pulled out by patient GENITOURINARY: Kern and fecal tube in place. EXTREMITIES: Edema present no cyanosis. CENTRAL NERVOUS SYSTEM: Intubated. PSYCHIATRIC: Confused Derm has pressure wounds wound pictures noted in chart. Generalized rash, Right PICC line removed; left PICC line 04/07/2021 Right IJ HDC clean March 07 Medications: Inpatient Meds: Medications reviewed. Labs: Lab Laboratory Tests Test 04/15/21 18:08 04/15/21 21:04 04/15/21 23:48 04/16/21 05:15 Glucose (Fingerstick) 197 mg/dL (70-99) 216 mg/dL (70-99) 211 mg/dL (70-99) 223 mg/dL (70-99) Micro GRAM STAIN EVALUATION Final Final This specimen is of good quality and is acceptable for routine bacterial culture. Culture results to follow. NO ORGANISMS SEEN. SQUAMOUS EPI CELL:RARE PMN (WBCs):MODERATE Unless otherwise specified, Testing Performed by: [address] [address] For Inquires, the Physician may contact the Microbiology department at [phone] RESPIRATORY CULTURE Final Final MODERATE GRAM NEGATIVE RODS on 03/18/21 at 1120 FINAL ID= [ACINETOBACTER [email or web address].] ACINETOBACTER URSINGII. ANTIMICROBIAL SUSCEPTIBILITY Final Comment NEG SAGE 56 ACINETOBACTER URSINGII. ANTIBIOTIC RESULT INTERPRETATION AMPICILLIN/SULBACTAM <=4/2 S AMIKACIN <=16 S CEFTRIAXONE 2 S CEFTAZIDIME 16 I CEFOTAXIME 16 I CIPROFLOXACIN <=0.25 S CEFEPIME 4 S GENTAMICIN <=2 S LEVOFLOXACIN <=0.5 S RUN DATE: 03/19/21 [facility] *LIVE* PAGE 2 RUN TIME: 1120 Specimen Inquiry SPEC: [id number] PATIENT: ARIADNA BANKS [id number] (Continued) Procedure Result CONTINUED ON NEXT PAGE RUN DATE: 03/19/21 [facility] *LIVE* PAGE 3 RUN TIME: 1120 Specimen Inquiry SPEC: [id number] PATIENT: ARIADNA BANKS [id number] (Continued) --- --------- Procedure Result ANTIMICROBIAL SUSCEPTIBILITY Final (continued) MINOCYCLINE <=4 S MEROPENEM <=1 S TRIMETHOPRIM/SULFAMETHOXAZOLE <=0.5/9.5 S TOBRAMYCIN <=2 S Unless otherwise specified, Testing Performed by: [address] [address] For Inquires, the Physician may contact the Microbiology department at [phone] Culture negative Objective: Assessment: 1. Febrile illness. Resolved 2. COVID-19 infection present on date of admission, 02/06/2021. Status post remdesivir, dexamethasone. 3. Acute hypoxic respiratory failure, status post intubation. S/P Trach on 03/17 Trach cultures positive for Rock albicans and now acinebacter ursungi 4. Diabetes. 5. Diarrhea. 6. Hypertension. 7. Hyperlipidemia. 8. Anemia. 9. BOB on HD 10.UC rock albican, ua neg 11. Nausea and vomiting 12. Leukocytosis likely reactive as patient had nausea and vomiting has pulled out PEG tube Plan: Plan of Care Monitor off antibiotics Maintain aspiration precautions Status post PICC line exchange Monitor lab and cultures C. 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 KAITLYNN CRAIG MD Apr 16, 2021 07:58
[2021-04-16 08:27] LABS: CALCIUM 9.5 mg/dL (8.5-10.1); CREATININE 1.9 mg/dL (0.6-1.0); GFR 28.6
[2021-04-16 08:43] LABS: POTASSIUM 2.7 mmol/L (3.5-5.1)
--- NOTE | 2021-04-16 08:45 | PDOC ---
PULMONARY PROGRESS NOTES DATE: 04/16/21 TIME: 08:45 Subjective Patient feels short of breath, with [place] valve on No chest pain no pressure patient Vitals Vital Signs Date Time Temp Pulse Resp B/P (MAP) Pulse Ox O2 Delivery O2 Flow Rate FiO2 04/16/21 07:38 99.2 126 22 159/87 (111) 100 Tracheal Collar 99.2 04/15/21 07:00 8.0 ROS: No Nausea, No Chest Pain, No Abdominal Pain, No Increase Cough Lungs: Crackles Cardiovascular: S1 Abdomen: Soft, Non-tender Neuro Exam: Alert, Normal Speech Skin: Warm Labs Laboratory Tests Test 04/14/21 11:52 04/14/21 18:18 04/14/21 23:58 04/15/21 05:30 Glucose (Fingerstick) 274 mg/dL (70-99) 332 mg/dL (70-99) 216 mg/dL (70-99) 286 mg/dL (70-99) Test 04/15/21 05:45 04/15/21 18:08 04/15/21 21:04 04/15/21 23:48 Sodium Level 141 mmol/L (136-145) Potassium Level 3.1 mmol/L (3.5-5.1) Chloride Level 102 mmol/L (98-107) Carbon Dioxide Level 26 mmol/L (21-32) Anion Gap 13 (6-14) Blood Urea Nitrogen 59 mg/dL (7-20) Creatinine 2.3 mg/dL (0.6-1.0) Estimated GFR (Cockcroft-Gault) 22.9 Glucose Level 309 mg/dL (70-99) Calcium Level 9.3 mg/dL (8.5-10.1) Glucose (Fingerstick) 197 mg/dL (70-99) 216 mg/dL (70-99) 211 mg/dL (70-99) Test 04/16/21 05:15 04/16/21 05:37 Glucose (Fingerstick) 223 mg/dL (70-99) Sodium Level 142 mmol/L (136-145) Potassium Level 2.7 mmol/L (3.5-5.1) Chloride Level 102 mmol/L (98-107) Carbon Dioxide Level 26 mmol/L (21-32) Anion Gap 14 (6-14) Blood Urea Nitrogen 48 mg/dL (7-20) Creatinine 1.9 mg/dL (0.6-1.0) Estimated GFR (Cockcroft-Gault) 28.6 Glucose Level 243 mg/dL (70-99) Calcium Level 9.5 mg/dL (8.5-10.1) Laboratory Tests Test 04/15/21 18:08 04/15/21 21:04 04/15/21 23:48 04/16/21 05:15 Glucose (Fingerstick) 197 mg/dL (70-99) 216 mg/dL (70-99) 211 mg/dL (70-99) 223 mg/dL (70-99) Test 04/16/21 05:37 Sodium Level 142 mmol/L (136-145) Potassium Level 2.7 mmol/L (3.5-5.1) Chloride Level 102 mmol/L (98-107) Carbon Dioxide Level 26 mmol/L (21-32) Anion Gap 14 (6-14) Blood Urea Nitrogen 48 mg/dL (7-20) Creatinine 1.9 mg/dL (0.6-1.0) Estimated GFR (Cockcroft-Gault) 28.6 Glucose Level 243 mg/dL (70-99) Calcium Level 9.5 mg/dL (8.5-10.1) Medications Active Scripts Medications Dose Route/Sig Max Daily Dose Days Date Category Novolog Flexpen (Insulin Aspart) 100 Unit/1 Ml Insuln.pen 3-7 SQ TIDACHC 02/07/21 Reported Lisinopril 5 Mg Tablet 1 Tab PO DAILY 02/07/21 Reported Lantus Solostar (Insulin Glargine,Hum.rec.anlog) 100 Unit/1 Ml Insuln.pen 5 Unit SQ QHS 04/09/15 Reported Atorvastatin Calcium 40 Mg Tablet 40 Mg PO HS 04/09/15 Reported Impression . IMPRESSION: 1. Acute hypoxic respiratory failure secondary to COVID-19 viral pneumonia/acute lung injury and early acute respiratory distress syndrome. S/P intubation 02/17/21. Status post tracheostomy. 2. Nonsmoker. 3. Abnormal chest x-ray consistent with COVID-19 viral pneumonia. 4. Diabetic ketoacidosis--resolved 5. Underlying obesity contributing to hypoxia as well. 6. BOB . hemodialysis started 03/07 7. Fever, 30 ID 8. Abnormal chest x-ray with diffuse interstitial infiltrates compatible with viral pneumonia 9. [place] in the sputum is a contamination 10. Septic shoc 11. s/p lap G-tube 03/27 12. Delirium Plan . Updated 04/16 Continue current trach shield with [place] valve Up to chair PT OT Updated 04/15 Continue current support Discussed with Dr. Mills yesterday, May decannulate in 24 to 48 hours PT OT Updated 04/14 Continue current support Downsize trach, will discuss with surgery Hemodialysis per nephrology PT OT MONTEZ OROPEZA MD Apr 16, 2021 08:45
[2021-04-16] MEDS ORDERED: POTASSIUM BICARB 20 MEQ EFFERVESCENT TABLET. PEG ONE (09:00)
[2021-04-16] MEDS ORDERED: POTASSIUM CHLORIDE 20MEQ 100 ML IV ONE (09:00)
--- NOTE | 2021-04-16 09:21 | PDOC ---
[facility] [facility] PROGRESS NOTE Date of Service DOS: DATE: 04/16/21 TIME: 09:13 Chief Complaint Chief Complaint COVID-19 respiratory failure DKA Hypotension Nausea Vomiting Combined metabolic and respiratory acidosis Acute electrolyte derangementhyponatremia, hypochloremia due to volume depletion Hyperglycemia BOB due to ATN, requiring dialysis Erythrocytosis Candiduria Sacral decubitus ulcer S/P Trach on (03/17/21) Trach cultures positive for [place] albicans and now acinebacter ursungi History of Present Illness History of Present Illness 04/16 Patient seen examined at bedside. Transfer out of the ICU yesterday. Speech therapy to evaluate this morning. Improved notably since I last saw her in the ICU. Continue PEG feeds. Blood pressure treatment. Plan of care discussed wi th bedside RN. 04/15/2021 Patient seen and examined in the ICU She has clean dry intact tracheostomy with trach shield PEG feeds running at 30 cc an hour She really wants to drink water I told her that we are awaiting speech therapy to reevaluate her Chart reviewed Discussed with RN 04/14/2021 Patient seen and examined in the ICU She remains pleasantly confused Has a new PEG in place Discussed with physical therapy Discussed with RN Chart reviewed 04/13/2021 Patient seen and examined in the ICU She is pleasantly confused Sedated with Precedex and fentanyl I discussed with the speech therapist the patient has no laryngeal movement Now she is n.p.o. again Going for new PEG placement in interventional radiology hopefully later today Her trach is clean Chart reviewed Discussed with RN 04/12/2021 Patient seen and examined in the ICU Her is present today and seems to be good support for her Chart reviewed Discussed with RN Still sedated with Precedex and fentanyl but awake 04/11/2021 Patient seen and examined in the ICU She remains quite confused currently sedated Chart reviewed Discussed with RN Had some nausea vomiting last night Pulled out her PEG yesterday Currently on fentanyl and Precedex IV Zyvox hanging 04/10/2021 Patient seen and examined in the ICU She is pleasantly confused Has a trach shield in place Discussed with RN Chart reviewed We are adding in some as needed Ativan and scheduled Prozac Ms Borges is a 46 year old female who presented with nausea/vomiting since 7 AM 02/06/2021 in the morning. Patient stated that her recently tested positive for Covid. She states that he "coughed in my face because he thought it was funny." She reports subjective fevers and chills and nausea/vomiting. Denies sore throat, cough, shortness of breath. No chest pain. Does have some upper abdominal discomfort after vomiting, that she attributes to muscular strain. She was not vaccinated for Covid. 02/08: No acute events overnight. Patient seen and examined bedside and resting comfortably. Continues to complain of nausea not able to tolerate any diet at this time. Saturating 98% on room air. Patient's chart, labs, images were reviewed and discussed with RN 02/09: Afebrile, currently breathing on room air. Still with complaints of nausea and vomiting x3 today. States that she has history of similar symptoms that have been mildly improved with IV Dilaudid. 02/10: Patient febrile today with T-max 102.2 F. She still admits to nausea, denies any further vomiting. We will continue to provide supportive care and monitor for any recurrent fevers overnight. Patient continues to improve may discharge tomorrow to continue self-isolation. 02/11: Febrile overnight, T-max 102.3 F. She did become hypoxic overnight, currently breathing on 4 L nasal cannula. Also admits to associated vomiting or diarrhea overnight. Discussed with RN, will initiate remdesivir and closely monitor LFTs. IV Decadron, and prophylactic antibiotics. 02/12: Low-grade fever overnight, T-max 99.7. Currently breathing on room air. Will discontinue remdesivir, steroids, and antibiotics; will observe overnight. Still with complaints of vomiting x1 and diarrhea. We will continue to provide supportive care and hope to discharge in the next day or so. 02/13: Afebrile. Still complains of intermittent diarrhea. At the time of my evaluation she was breathing on 6 L nasal cannula; this is somewhat misleading as patient states that she did not feel short of breath but was placed on 6 L by nursing staff overnight. 02/14: Afebrile, currently breathing on 8 L nasal cannula. There has been some misleading documentation, chart oxygen this patient is requiring. Discussed with RN, will resume remdesivir to complete total of 5 days. Continue to monitor LFTs. Will add steroids, Rocephin, and azithromycin. 02/15: Afebrile. Became much more hypoxic overnight, requiring BiPAP. At the time of my evaluation she is still breathing on BiPAP. Consultation was placed to pulmonology. Had discussion with Dr. Myrick about initiating Tocilizumab 02/16: No acute events overnight. Patient becoming more hypoxic saturating 94% and requiring BiPAP. Patient will be transferred to the ICU at this time. For worsening clinical status. Discussed with pulmonary. Patient's chart, labs, images were reviewed and discussed with RN 02/17: Transferred to ICU yesterday afternoon. Seen and examined at bedside she remains on 100% FiO2 on BiPAP. Respirations do appear somewhat labored. Suspect intubation may be impending. We will closely monitor. Increase lisinopril to 20 today. 02/18: Patient required intubation yesterday afternoon. Saw and examined this morning. She is intubated and sedated. Increase insulin today. Covid protocol ordered. Wean as tolerated. Plan of care discussed with bedside nurse. 02/19: Bedside. She remains intubated and sedated. Continue Covid protocol. Wean oxygen sedation as tolerated. Pulmonary following. Plan of care discussed with bedside RN. 02/20: Patient seen and examined at bedside. She remains intubated and sedated. No major clinical changes. Continue current treatment. Pulmonary following. Plan of care discussed with bedside RN. 02/21: Patient seen and examined at bedside. Remains intubated and sedated date and admission clinical changes. Increase free water flushes today due to hypernatremia. Plan of care discussed with bedside nurse. 02/22: Patient seen and examined at bedside. O2 requirement actually improving, although remains intubated. Possible SBT in the coming days. Hypernatremia improving. Plan of care discussed bedside RN. 02/23: Patient remains in ICU on ventilator with FiO2 100%, PEEP 7. Repeat chest x-ray yesterday showed diffuse bilateral pulmonary opacities with no interval improvement. Will discontinue Rocephin and initiate Zosyn. We will continue IV steroids for a full 10-day course 02/24: Afebrile. On vent with FiO2 40%, PEEP 6. Her Coreg has been held due to persistent bradycardia. No documented history of systolic heart failure or previous echocardiogram. Will need to obtain echocardiogram prior to discharge. Continue IV steroids and antibiotics. 02/25: Afebrile. Remains ventilated with FiO2 45%, PEEP 6. Chest x-ray today showed slight improvement of the pulmonary infiltrates, no pneumothorax. Completed 10-day course of IV Decadron. Will initiate slow Solu-Medrol taper. Continue IV Zosyn. Continue supportive care. 02/26: Afebrile. On vent with FiO2 45%, PEEP 6. Completed 10 days of IV Dec adron. Will continue IV Zosyn. Continue supportive care. Critical care time 30 minutes spent reviewing charts, reviewing imaging, reviewing labs, discussion with RN. 02/27: Afebrile. On vent with FiO2 45%, PEEP 6. Completed 10 days of steroids and completed remdesivir. Continue with IV Zosyn. CPAP trial yesterday. Continue NG tube and supportive care. 02/28:. Patient remains on vent with FiO2 40%, PEEP 5. Afebrile. Completed steroids and remdesivir. Some noted hypoglycemia overnight, will de-escalate basal insulin. Continue IV Zosyn. Ventilator management per pulmonology. Continue NG tube and supportive care. 03/01: On vent with FiO2 40%, PEEP 5. Afebrile. Completed steroids and remdesivir. Blood glucose well controlled. Continue empiric antibiotics with Zosyn. Ventilator management per pulmonology. Continue NG tube and supportive care. 03/02: No acute events overnight. Patient hypotensive the morning due to oversedation. Will wean off sedation and keep antihypertensive medications on board. Currently saturating 100% on vent settings of 18/450/40/5. Will attempt spontaneous breathing trial today to see how patient does. 03/03: No acute events overnight. Patient saturating 98% on vent settings of 18/450/40/5. Will defer spontaneous breathing trials to pulmonary at this time. Patient's chart, labs, images were reviewed and discussed with RN 03/04: No acute events overnight. Patient saturating 9 9% on vent settings of 18/450/30/5. Patient currently is unable to tolerate weaning. Per pulmonary. Patient's chart, labs, images were reviewed and discussed with RN 03/05: No acute events overnight. Patient is saturating 97% on vent settings of 18/450/55/5. Her FiO2 needs to be increased due to abnormal ABG with 7.3 7/58/24. Patient's chart, labs, images were reviewed and discussed with RN 03/06: No acute events overnight. Patient saturating 94% on vent settings of 18/450/55/5. Chest x-ray showing increase in pulmonary infiltrates. Wound care is consulted for decubitus ulcer patient's chart, labs, images were reviewed and discussed with RN 03/07: No acute events overnight. Patient saturating 94% on vent settings of 20/450/70/8. Patient now heading into renal failure with her creatinine bumped up from 1.5-4.2. Decreased urine output. Plan for hemodialysis today and temporary catheter placement and nephrology is consulted. 03/08: No acute events overnight. Patient did have a nausea vomiting episode and tube feeds were held. KUB repeat shows NG tube still in the stomach. Will resume tube feeds at trickle and advance to goal today. Will start hemodialysis soon. 03/09: Seen on vent 20/450/60%/8. ABG 7.2 WBC 11.4, Hb 7.4, platelets 188, NA 131, K4.9, BUN 48, CR 51, glucose 199, phosphorus 7.9, mag 2.2, AST 265 ALT 219, albumin 1.1. Chest radiograph appears unchanged from prior. Dialysis x1 today 03/10: Afebrile. Seen on vent, 20/450/60/7 with ABG 7.3 . Tolerated dialysis well on 03/09. LFTs similar. 03/11: Afebrile. Seen on vent, sedated. Still requiring Levophed for BP support. WBC 16.7, Hb 8.1, NA 130, ABG 7.3 on 55% FiO2 PEEP 6. On Zosyn and Zyvox Diflucan. Dialysis today 03/12: Afebrile. Still requiring Levophed for BP support sedated with Versed febrile Precedex. WBC 16.1, Hb 8.5, platelets 185, NA 133. Trach plan tentative ly 03/17. O2 saturations 93% on 50% FiO2 PEEP 6. ABG 7. On Zosyn and Zyvox Diflucan. 03/13: Afebrile. Still on Levophed for BP support lightly sedated. 7. on 45% FiO2. Plan for dialysis today. On Zosyn and Zyvox Diflucan. More swollen today. 03/14: Afebrile. Weaning down off Levophed. WBC 14.9 NA 132. O2 saturations 92% on 45% FiO2 PEEP 5. Afebrile. O2 saturations 91% on FiO2 45% PEEP 6. Continued on Zosyn and Zyvox Diflucan. Tentative trach planned 03/17/2021 CC time 31 minutes 03/16/21: Patient seen and examined in ICU. Periorbital as well as upper and lower extremity edema noted. OG feed running at 30cc/hr. Still on vent on pressure control with a rate of 24 with 45% FiO2. Patient has rectal bag. Currently she has 98% O2 sat. Currently sedated with Dexmedetomidine, Propofol, Versed, and Fentanyl. Discussed with RN. Chart reviewed. 03/17/21: Patient was seen and examined in the ICU today. Periorbital edema as well as abdominal and mons pubis edema was noted. Patient still on vent on pressure control with Fi02 of 45% plus 6 PEEP. Patient had rectal bag. Currently sedated on Dexmedetomidine, Propofol, Versed, and Fentanyl. Discussed with RN. Chart reviewed. 03/18/21: Patient seen and examined in ICU. On vent via trach that was placed yesterday. Vent settings are Pressure Control of 40 with FiO2 of 45% and 6 PEEP. Trach clean and dry. Orbital swelling still present. Pupils are sluggish. Patient on TPN running at 30cc/hr. Kern to bedside and rectal bag in place. Current O2 sat at 94%. Sedated on Dexmedetomidine, Propofol, Versed, and Fentanyl. Discussed with RN. Chart reviewed. 03/19/21: Patient was seen and examined in the ICU today. Currently on vent via trach on pressure control of 42, rate of 24, FiO2 of 45%, and 6 PEEP. O2 sat is at 97% while patient is being examined. Trach is clean and dry. PICC line is in place on right arm. Periorbital swelling has decreased slightly since examined yesterday. Patient is sedated on Dexmedetomidine, Propofol, Versed, and Fentanyl. Discussed with RN. Chart reviewed. 03/20/21: Patient seen and examined in the ICU. Periorbital edema is slightly decreased since yesterday. O2 sat while being examined was 93%. NG tube in place and running at 30cc/hr. Patient on vent via trach on pressure control of 40 with FiO2 of 45 and rate of 24. Sedated on Dexmedetomidine, Propofol, Versed, and Fentanyl. PICC line in place. Kern to bedside. Rectal bag present. Discussed with RN. Chart reviewed. 03/21/21: Patient was seen and examined in the ICU today. She was semi-sedated.. She was on Dexmedetomidine and Fentanyl. We are holding the Propofol. Her eyes were periodically open but she was not making meaningful eye contact or tracking. On vent via trach with pressure control of 40 and FiO2 at 45. Rate was 24. PEEP was 5. Trach was clean and dry. While being examined, her O2 sat was 94%. Rectal bag and Kern to bedside in place. NG tube in place and feeding at 30cc/hr. IV fluids still running. Levophed has been stopped. Discussed with RN. Chart reviewed. 03/22/21: Patient was seen and examined in the ICU. She was semi-sedated on Propofol and Dexmedetomidine. Her eyes were open but she did not make meaningful eye contact. Her blood pressure was elevated (198/102) while being examined and she had just been given hydralazine to lower it. There are plans to place a PEG tube tomorrow. Currently on vent via trach on pressure control of 40 with FiO2 of 45%, 5 PEEP, and a rate of 24. Current O2 sat is 98%. She is feeding through an NG tube at 30cc/hr. Rectal bag and Kern to bedside present. SCDs on patient for DVT prophylaxis. She did not do her daily dialysis today but the plan is to start back on that tomorrow. Discussed with RN. Chart reviewed. 03/23/2021: Patient remains in ICU on ventilator. FiO2 40%, PEEP 5. Trach cultures positive for [place] albicans and acinebacter ursungi. We will continue treatment with IV antibiotics and micafungin, per ID. HD per nephrology. Plans for PEG tube placement today. 30 minutes critical care time was spent reviewing charts, reviewing labs, reviewing imaging, discussion with RN. 03/24/2021: Afebrile. On vent with FiO2 45%, PEEP 5. Had attempted PEG placement per GI yesterday, but unable to locate safe path for PEG; will consider surgical opinion. Once PEG is in place she should be stable for LTAC transfer when accepted. Continue antibiotics, per ID. 30 minutes critical care time was spent reviewing charts, reviewing labs, reviewing imaging, discussion with RN. 03/25/2021: Febrile overnight with T-max 101.5 F. On vent with FiO2 45%, PEEP 5. Surgery has been consulted with tentative plans for laparoscopic versus open gastrostomy placement tomorrow. Trach cultures positive for [place] albicans and now acinebacter ursungi; will continue antibiotic management, per ID. Hemod ialysis, per nephrology. Patient needing LTAC placement, but currently without benefits. optical goods worker following for discharge planning. Critical care time 30 minutes spent reviewing charts, reviewing labs, reviewing imaging, discussion with RN. 03/26/2021: Febrile today with T-max 100.5 F. Awake on vent with FiO2 45%, PEEP 5. When I ask if she remembers any she nods. G-tube placement scheduled for tomorrow, per general surgery. Chest x-ray today showed slight interval increase in diffuse infiltrate. Continue antibiotic management, per ID. Hemodialysis per nephrology. Reportedly did not tolerate CPAP trial this morning. optical goods worker following for LTAC placement. Critical care time 30 minutes spent reviewing charts, reviewing labs, reviewing imaging, discussion with RN. 03/27/2021: On vent with FiO2 45%, PEEP 5. Afebrile today. Continue treatment of acute renal failure requiring HD, per nephrology. Monitor kidney function for recovery. G-tube placement scheduled for today, per general surgery. Likely LTAC placement soon, but this is been a difficult as she is self-pay without benefits; social media job titles following. Critical care time 30 minutes spent reviewing charts, reviewing labs, reviewing imaging, discussion with RN. 03/28/2021: Afebrile. On vent with FiO2 40%, PEEP 5. Had laparoscopic gastrostomy tube placed yesterday, per general surgery. Continue treatment of acute renal failure requiring HD, per nephrology. Continue IV antibiotics, per ID. Likely LTAC placement soon, but this is been a difficult as she is self-pay without benefits; social media job titles following. Critical care time 30 minutes spent reviewing charts, reviewing labs, reviewing imaging, discussion with RN. 03/29/2021: Afebrile. On vent with FiO2 45%, PEEP 5. S/P laparoscopic gastrostomy tube; tube feeds running. HD, per nephrology. Continue meropenem, per ID. Anticipate LTAC placement soon now that PEG has being placed; social media job titles helping in these regards. Critical care time 30 minutes spent reviewing charts, reviewing labs, reviewing imaging, discussion with RN. 03/30 No major events or clinical changes overnight. Patient evaluated at bedside this morning on trach and G-tube. Tolerating these well. Has been working on insurance for patient for placement as she will need long-term care. Guarded prognosis. Plan of care discussed with bedside nurse. 03/31 No major clinical changes. Remains trached. Sedated. Continue current plan. 04/01 No changes. Patient resting in bed when evaluated sedated. is supposed to be working on insurance for placement for the patient. Otherwise no changes. 04/02 Patient febrile overnight, daptomycin added this morning per infectious disease. Otherwise no major clinical changes. Awaiting insurance. Infectious disease, pulmonary and renal following. Plan of care discussed with bedside RN. 04/03 Patient undergoing dialysis today. Evaluated at bedside this morning. otherwise continue current plan. supposed working on insurance. 04/04 No major overnight changes. Continue current plan. 04/05 Patient notably more movement this morning eyes open resting in bed otherwise no major changes. Continue current plan. Insurance pending. 04/06 Patient notably more movement this morning eyes open resting in bed current plan. Insurance pending. Continue daptomycin, renal dosing April 02 F/U Blood culture UA urine culture C. diff PCR negative 32 min cc time 04/07 Patient notably more movement this morning eyes open resting in bed current plan. Insurance pending. Continue daptomycin, renal dosing April 02 F/U Blood culture UA urine culture C. diff PCR negative Abnormal chest x-ray consistent with COVID-19 viral pneumonia. Diabetic ketoacidosis--resolved obesity contributing to hypoxia as well. BOB . hemodialysis started 03/07 DVT GI prophylaxis Nutritional support 34 min cc time 04/08 Patient notably more movement this morning eyes open resting in bed current plan. Insurance pending. Continue daptomycin, renal dosing April 02 F/U Blood culture UA urine culture C. diff PCR negative s/p lap G-tube 03/27 Abnormal chest x-ray consistent with COVID-19 viral pneumonia. Diabetic ketoacidosis--resolved obesity contributing to hypoxia as well. BOB . hemodialysis started 03/07 DVT GI prophylaxis Nutritional support Right PICC line February 14 out; left PICC line 04/07/2021 Right IJ HDC clean March 07 32 min cc time 04/09 non Oliguric for past 11/2 -2 weeks , good response to IV NS bolus .requiring dialysis., currently on MWF schedule, tolerating trach shield well.using her speaking valve./ resting in bed current / states she feels better Start iv Zyvox Cont Meropenem DC daptomycin post PICC line exchange aspiration precautions C. diff PCR negative F/U Blood culture UA urine culture s/p lap G-tube 03/27 Abnormal chest x-ray consistent with COVID-19 viral pneumonia. Diabetic ketoacidosis--resolved obesity contributing to hypoxia as well. BOB . hemodialysis started 03/07 DVT GI prophylaxis Nutritional support Right PICC line February 14 out; left PICC line 04/07/2021 Right IJ HDC clean March 07 34 min cc time Vitals/I&O Vitals/I&O: Vital Signs Date Time Temp Pulse Resp B/P (MAP) Pulse Ox O2 Delivery O2 Flow Rate FiO2 04/16/21 07:38 99.2 126 22 159/87 (111) 100 Tracheal Collar 99.2 04/15/21 07:00 8.0 I & O 04/15/21 04/15/21 04/16/21 15:00 23:00 07:00 Intake Total 0 ml 319 ml Output Total 500 ml 700 ml 1050 ml Balance -500 ml -700 ml -731 ml Physical Exam Physical Exam: GENERAL: Awake, pleasantly confused HEENT: Normocephalic, atraumatic. Anicteric. Slight bilateral periorbital edema. Latter improving Neck right IJ HDC clean Trach + capped LUNGS: Rhonchi. HEART: S1, S2. No murmurs. ABDOMEN: Obese, soft. Bowel sounds present. Nontender, nondistended. PEG tube pulled out by patient GENITOURINARY: Kern and fecal tube in place. EXTREMITIES: Edema present no cyanosis. CENTRAL NERVOUS SYSTEM: Intubated. PSYCHIATRIC: Confused Derm has pressure wounds wound pictures noted in chart. Generalized rash, Right PICC line removed; left PICC line 04/07/2021 Right IJ HDC clean March 07 General: Alert, Oriented X3, Cooperative Heart: Regular rate, Normal S1, Normal S2 Lungs: Crackles Abdomen: Soft, Other (ND) Extremities: No cyanosis, Other (ANASARCA) Skin: No rashes, No significant lesion Labs Labs: Laboratory Tests Test 04/15/21 18:08 04/15/21 21:04 04/15/21 23:48 04/16/21 05:15 Glucose (Fingerstick) 197 mg/dL (70-99) 216 mg/dL (70-99) 211 mg/dL (70-99) 223 mg/dL (70-99) Test 04/16/21 05:37 Sodium Level 142 mmol/L (136-145) Potassium Level 2.7 mmol/L (3.5-5.1) Chloride Level 102 mmol/L (98-107) Carbon Dioxide Level 26 mmol/L (21-32) Anion Gap 14 (6-14) Blood Urea Nitrogen 48 mg/dL (7-20) Creatinine 1.9 mg/dL (0.6-1.0) Estimated GFR (Cockcroft-Gault) 28.6 Glucose Level 243 mg/dL (70-99) Calcium Level 9.5 mg/dL (8.5-10.1) Assessment and Plan Assessmemt and Plan Problems Medical Problems: (1) Ketoacidosis Status: Acute Comment Review of Relevant I have reviewed the following items mazin (where applicable) has been applied. Medications: Current Medications Medications (Trade) Dose Ordered Sig/Pepe Route PRN Reason Start Time Stop Time Status Last Admin Dose Admin Albuterol/ Ipratropium (Duoneb) 3 ml RTQID NEB 04/15/21 10:00 04/16/21 07:19 Potassium Chloride/Water 100 ml @ 50 mls/hr Q2H IV 04/15/21 11:00 04/15/21 14:59 DC 04/15/21 15:05 Justifications for Admission Other Justification LEO DELGADO MD Apr 16, 2021 09:21
[2021-04-16] MEDS: MULTIVITAMINS,THERAPEUTIC 5 ML ORAL LIQUID. PEG SCH (09:22)
[2021-04-16] MEDS: FAMOTIDINE 20 MG/2 ML VIAL IVP SCH (09:22)
[2021-04-16] MEDS: fentaNYL 25MCG/HR PATCH 1 PATCH PATCH.TD72 TD SCH (09:25)
[2021-04-16] MEDS: NYSTATIN TOPICAL POWDER 15GM BOTTLE. TP SCH ×2 (09:26→21:37)
--- NOTE | 2021-04-16 09:47 | PDOC ---
DATE OF SERVICE DATE: 04/16/21 TIME: 09:47 SUBJECTIVE ROS Transferred out of ICU Stable, Resting comfortably, No SOB, No N/V OBJECTIVE Vital Signs Vital Signs Date Time Temp Pulse Resp B/P (MAP) Pulse Ox O2 Delivery O2 Flow Rate FiO2 04/16/21 09:25 100 Room Air 8.0 04/16/21 09:23 126 159/87 04/16/21 07:38 99.2 22 99.2 I & 0 Intake and Output 04/16/21 07:00 Intake Total 319 ml Output Total 2250 ml Balance -1931 ml Intake Oral 0 ml Tube Feeding 319 ml Output Urine Total 2250 ml # Bowel Movements 2 PHYSICAL EXAM Physical Exam GENERAL: NAD , Trach collar HEENT: Anicteric. . Neck Trach+ LUNGS: decreased at bases HEART: S1, S2. No murmurs. ABDOMEN: Obese, soft. Bowel sounds present. PEG + GENITOURINARY: Kern in place. EXTREMITIES: Edema present no cyanosis. DIAGNOSIS/ASSESSMENT Assessment & Plan BOB-ATN- was anuric initially , non Oliguric with good uop ,improving renal function . Required dialysis , last was on Tuesday (04/10) E-Lytes, Resp status stable. Supportive care, I/O avoid nephrotoxins, Access- temp HDC HypoNatremia - resolved stable HypoKalemia - switch from Nepro to TF with normal K-Discussed with nursing again yesterday in ICU . Patient currently on Nepro . Defer to manager education . Lance RN today .Replacing K Gastrostomy tube replaced 04/14 DM 2 - Glucosuria + POA COVID 19 Pneumonia - Unvaccinated , treated, Off isolation Acute Resp Failure- Intubated ; CxR 04/01 Moderate diffuse pulmonary opacities, slightly decreased compared to prior. HTN BP very high during hospitalization. She reports no Hx of HTN , states was on lisinopril for Renoprotection with Hx of DM Anemia -avoid DOYLE 2/2 to Thrombogenic state Family History of ESRD - Per at bedside- Pt's Mom was on dialysis and sister is on Dialysis COMMENT/RELEVANT DATA Meds Current Medications Medications (Trade) Dose Ordered Sig/Pepe Start Time Stop Time Status Last Admin Dose Admin Acetaminophen (Tylenol Supp) 650 mg PRN Q6HRS PRN 02/08/21 01:45 02/17/21 10:45 DC Acetaminophen (Tylenol) 500 mg 1X PRN PRN 03/17/21 13:30 03/18/21 13:29 DC Albumin Human 200 ml @ 200 mls/hr 1X PRN PRN 04/06/21 08:45 04/06/21 14:44 DC 04/06/21 10:43 200 MLS/HR Albuterol Sulfate (Ventolin Hfa) 60 puff STK-MED ONCE 03/17/21 11:29 03/17/21 11:29 DC Albuterol/ Ipratropium (Duoneb) 3 ml RTQID 04/15/21 10:00 04/16/21 07:19 3 ML Alteplase, Recombinant (Cathflo For Central Catheter Clearance) 1 mg 1X ONCE 02/27/21 14:30 02/27/21 14:36 DC 02/27/21 15:19 1 MG Alteplase, Recombinant (Cathflo) 2 mg 1X ONCE 02/27/21 11:00 02/27/21 11:01 DC 02/27/21 11:20 2 MG Amlodipine Besylate (Norvasc) 10 mg DAILY 03/31/21 09:00 04/16/21 09:23 10 MG Atorvastatin Calcium (Lipitor) 40 mg HS 02/08/21 21:00 04/15/21 21:05 40 MG Atropine Sulfate (ATROPINE 0.5mg SYRINGE) 0.5 mg PRN Q5MIN PRN 02/16/21 12:00 Azithromycin 250 mg/Sodium Chloride 250 ml @ 250 mls/hr Q24H 02/14/21 13:30 02/18/21 14:29 DC 02/18/21 11:51 250 MLS/HR Benzonatate (Tessalon Perle) 100 mg [id number] 02/10/21 23:30 02/17/21 10:45 DC 02/16/21 22:07 100 MG Bupivacaine HCl/ Epinephrine Bitart (Sensorcain-Epi 0.5% Kit) 30 ml STK-MED ONCE 03/27/21 10:05 03/27/21 10:05 DC 03/27/21 13:12 16 ML Bupivacaine HCl/ Epinephrine Bitart (Sensorcain-Epi 0.5%-1:308384 Mpf) 30 ml STK-MED ONCE 03/17/21 10:47 03/17/21 10:47 DC Carvedilol (Coreg) 6.25 mg BIDWMEALS 02/08/21 20:30 02/23/21 15:50 DC 02/23/21 08:06 6.25 MG Cefazolin Sodium/ Dextrose (Ancef 2gm Premix) 2 gm STK-MED ONCE 03/23/21 13:00 03/24/21 11:58 DC Ceftriaxone Sodium (Rocephin) 1 gm Q24H 02/14/21 13:00 02/23/21 07:34 DC 02/22/21 12:42 1 GM Cellulose (Surgicel Fibrillar 1x2) 1 each STK-MED ONCE 03/17/21 10:47 03/17/21 10:47 DC 03/17/21 11:56 1 EACH Daptomycin 480 mg/ Sodium Chloride 50 ml @ 100 mls/hr QMWF 03/23/21 16:00 03/26/21 10:29 DC 03/25/21 19:52 100 MLS/HR Daptomycin 500 mg/ Sodium Chloride 50 ml @ 100 mls/hr Q48H 04/02/21 10:00 04/09/21 10:52 DC 04/08/21 13:14 100 MLS/HR Dexamethasone Sodium Phosphate (Decadron) 2 mg 1X ONCE 02/27/21 09:00 02/26/21 07:15 DC Dexmedetomidine HCl 400 mcg/ Sodium Chloride 100 ml @ 0 mls/hr CONT PRN 02/27/21 09:45 04/15/21 05:36 0.2 MLS/HR Dextrose (Dextrose 50%-Water Syringe) 12.5 gm PRN Q15MIN PRN 03/01/21 13:00 03/01/21 12:55 12.5 GM Diphenhydramine HCl (Benadryl) 25 mg 1X PRN PRN 03/17/21 13:30 03/18/21 13:29 DC Docusate Sodium (Colace Solution) 100 mg BID 02/23/21 12:00 04/15/21 21:05 100 MG Docusate Sodium (Colace) 100 mg PRN DAILY PRN 02/07/21 08:45 02/23/21 10:47 DC Enalaprilat (Vasotec Inj) 0.625 mg Q6HRS 02/08/21 16:15 02/09/21 16:01 DC 02/09/21 13:42 0.625 MG Enoxaparin Sodium (Lovenox 30mg Syringe) 30 mg Q24H 03/08/21 09:00 03/12/21 15:38 DC 03/12/21 09:04 30 MG Enoxaparin Sodium (Lovenox 40mg Syringe) 40 mg BID 02/09/21 09:00 03/08/21 13:56 DC 03/08/21 08:26 40 MG Enoxaparin Sodium (Lovenox Per Pharmacy Prophylaxis Dosing) 1 each PRN DAILY PRN 02/09/21 06:45 03/12/21 15:38 DC Ephedrine Sulfate (ePHEDrine PF IN SALINE SYRINGE) 50 mg STK-MED ONCE 03/17/21 10:56 03/17/21 10:56 DC Famotidine (Pepcid Vial) 20 mg DAILY 03/10/21 09:00 04/16/21 09:22 20 MG Fentanyl (Duragesic 25mcg/ Hr Patch) 1 patch Q3DAYS 04/13/21 13:00 04/16/21 09:25 1 PATCH Fentanyl Citrate (Fentanyl 2ml Vial) 100 mcg 1X ONCE 04/13/21 14:00 04/13/21 14:03 DC 04/13/21 13:54 50 MCG Fluconazole/ Sodium Chloride 100 ml @ 100 mls/hr Q24H 03/07/21 09:00 03/17/21 08:03 DC 03/16/21 08:29 100 MLS/HR Fluoxetine HCl (PROzac) 20 mg 1X ONCE 04/10/21 11:15 04/10/21 11:34 DC Furosemide (Lasix) 40 mg 1X ONCE 03/29/21 15:00 03/29/21 15:02 DC 03/29/21 15:22 40 MG Glycerin/ Hypromellose/ Polyethylene (Artificial Tears) 1 drop PRN Q1HR PRN 02/17/21 10:00 04/05/21 08:02 1 DROP Glycopyrrolate (Robinul) 1 mg STK-MED ONCE 03/27/21 14:07 03/27/21 14:07 DC Guaifenesin (Robitussin Dm) 10 ml PRN Q6HRS PRN 02/10/21 23:30 02/16/21 09:06 10 ML Haloperidol Lactate (Haldol Inj) 5 mg Q8HRS 04/01/21 11:30 04/07/21 14:58 DC 04/07/21 05:51 5 MG Heparin Sodium (Porcine) (Heparin Sodium) 5,000 unit Q8HRS 03/13/21 06:00 04/16/21 05:28 5,000 UNIT Hydralazine HCl (Apresoline Inj) 10 mg PRN Q4HRS PRN 02/11/21 12:15 04/13/21 11:44 10 MG Hydromorphone HCl (Dilaudid) 0.5 mg PRN Q10MIN PRN 03/27/21 06:00 03/28/21 05:59 DC Info (CONTRAST GIVEN -- Rx MONITORING) 1 each PRN DAILY PRN 04/13/21 13:45 04/15/21 13:44 DC Info (PHARMACY MONITORING -- do not chart) 1 each PRN DAILY PRN 04/10/21 13:30 Cancel Insulin Glargine (Lantus Syringe) 10 unit BID 04/16/21 09:00 Insulin Human Lispro (HumaLOG) 12 units Q6HRS 02/20/21 12:00 02/28/21 15:38 DC 02/27/21 05:41 12 UNITS Insulin Human Regular 100 ml @ 10 mls/hr 1X ONCE 02/07/21 06:30 02/07/21 16:54 DC 02/07/21 09:31 6.5 MLS/HR Insulin Human Regular 100 unit/ Sodium Chloride 101 ml @ 0 mls/hr CONT PRN PRN 02/07/21 06:00 02/07/21 16:54 DC Iohexol (Omnipaque 240 Mg/ml) 50 ml 1X ONCE 04/13/21 13:45 04/13/21 13:46 DC 04/13/21 13:45 28 ML Labetalol HCl (Normodyne Iv Push) 10 mg PRN Q2HR PRN 02/08/21 00:45 04/15/21 22:54 10 MG Lactobacillus Rhamnosus (Culturelle) 1 cap BID 02/16/21 21:00 02/17/21 10:45 DC 02/16/21 22:02 1 CAP Lidocaine HCl (Buffered Lidocaine 1%) 3 ml STK-MED ONCE 03/07/21 13:25 03/07/21 13:25 DC Linezolid (Zyvox) 600 mg BID 03/05/21 09:00 03/12/21 07:00 DC 03/11/21 20:33 600 MG Linezolid/Dextrose 300 ml @ 300 mls/hr Q12HR 04/09/21 12:00 04/11/21 12:54 DC 04/11/21 09:59 300 MLS/HR Lisinopril (Prinivil) 20 mg DAILY 02/17/21 09:00 03/09/21 10:43 DC 02/27/21 09:10 20 MG Lorazepam (Ativan Inj) 1 mg PRN Q2HR PRN 04/10/21 11:15 04/16/21 09:23 1 MG Magnesium Sulfate 50 ml @ 25 mls/hr PRN DAILY PRN 04/04/21 13:00 Meropenem 1 gm/ Sodium Chloride 100 ml @ 200 mls/hr Q24H 03/18/21 17:00 04/10/21 11:57 DC 04/09/21 17:00 200 MLS/HR Methylprednisolone Sodium Succinate (SOLU-Medrol 125MG VIAL) 80 mg Q8HRS 02/25/21 09:00 02/26/21 07:09 DC 02/26/21 05:52 80 MG Metoclopramide HCl (Reglan Vial) 10 mg PRN Q6HRS PRN 02/08/21 00:45 02/12/21 15:51 10 MG Micafungin Sodium 100 mg/Dextrose 100 ml @ 100 mls/hr Q24H 03/21/21 18:00 03/25/21 10:27 DC 03/24/21 16:36 100 MLS/HR Midazolam HCl (Versed) 2 mg 1X ONCE 04/13/21 14:00 04/13/21 14:03 DC 04/13/21 13:54 2 MG Morphine Sulfate (Morphine Sulfate) 1 mg PRN Q10MIN PRN 03/27/21 06:00 03/28/21 05:59 DC Multi-Ingred Cream/Lotion/Oil/ Oint (Artificial Tears Eye Ointment) 1 reji PRN Q1HR PRN 03/17/21 17:30 03/20/21 15:55 1 REJI Multivitamins/ Minerals Therapeutic (Centrum Multivit-Mineral Liq) 5 ml DAILY 03/14/21 09:00 04/16/21 09:22 5 ML Naloxone HCl (Narcan) 0.4 mg PRN Q2MIN PRN 03/27/21 14:30 Neostigmine Naylor (Neostigmine Methylsulfate) 5 mg STK-MED ONCE 03/27/21 14:06 03/27/21 14:07 DC Norepinephrine Bitartrate 8 mg/ Dextrose 258 ml @ 21.711 mls/ hr CONT PRN 03/06/21 13:45 04/15/21 14:14 DC 03/19/21 18:45 23.3 MLS/HR Nystatin (Nystop) 1 reji BID 03/02/21 21:00 04/16/21 09:26 1 REJI Ondansetron HCl (Zofran Odt) 4 mg 1X ONCE 02/06/21 23:30 02/06/21 23:31 DC 02/06/21 23:57 4 MG Ondansetron HCl (Zofran) 4 mg STK-MED ONCE 04/13/21 13:33 04/13/21 13:33 DC Phenylephrine HCl (PHENYLEPHRINE in 0.9% NACL PF) 1 mg STK-MED ONCE 03/27/21 13:46 03/27/21 13:46 DC Piperacillin Sod/ Tazobactam Sod (Zosyn Per Pharmacy) 1 each PRN DAILY PRN 02/23/21 07:45 03/17/21 10:04 DC Piperacillin Sod/ Tazobactam Sod 2.25 gm/Sodium Chloride 50 ml @ 100 mls/hr Q8HRS 03/07/21 14:00 03/17/21 08:03 DC 03/17/21 05:58 100 MLS/HR Piperacillin Sod/ Tazobactam Sod 3.375 gm/Sodium Chloride 50 ml @ 100 mls/hr Q6HRS 03/14/21 18:00 Cancel Piperacillin Sod/ Tazobactam Sod 4.5 gm/Sodium Chloride 100 ml @ 200 mls/hr Q6HRS 02/23/21 08:00 03/07/21 08:18 DC 03/07/21 06:12 200 MLS/HR Potassium Bicarbonate (Potassium Effervescent Tablet) 40 meq 1X ONCE 04/16/21 09:00 04/16/21 09:04 DC 04/16/21 09:22 40 MEQ Potassium Chloride/Water 100 ml @ 50 mls/hr 1X ONCE 04/16/21 09:00 04/16/21 10:59 Potassium Chloride (Klor-Con) 40 meq 1X ONCE 02/13/21 12:00 02/13/21 12:01 DC 02/13/21 13:21 40 MEQ Prochlorperazine Edisylate (Compazine) 5 mg PACU PRN PRN 03/27/21 06:00 03/28/21 05:59 DC Propofol (Diprivan) 200 mg STK-MED ONCE 03/27/21 12:02 03/27/21 12:03 DC Remdesivir 100 mg/ Sodium Chloride 230 ml @ 460 mls/hr Q24H 02/15/21 12:00 02/18/21 12:29 DC 02/18/21 11:52 460 MLS/HR Remdesivir 200 mg/ Sodium Chloride 210 ml @ 210 mls/hr 1X ONCE 02/11/21 13:00 02/12/21 11:55 DC 02/11/21 14:33 210 MLS/HR Ringer's Solution 1,000 ml @ 30 mls/hr Q24H 03/27/21 06:00 03/27/21 17:59 DC Rocuronium Naylor (Zemuron) 50 mg STK-MED ONCE 03/27/21 13:16 03/27/21 13:17 DC Sennosides (Senna) 17.2 mg PRN BID PRN 02/07/21 08:45 02/22/21 08:29 17.2 MG Sevoflurane (Ultane) 60 ml STK-MED ONCE 03/27/21 14:19 03/27/21 14:20 DC Sodium Chloride 500 ml @ 500 mls/hr 1X ONCE 04/08/21 16:45 04/08/21 17:44 DC 04/08/21 17:10 500 MLS/HR Sodium Chloride (Normal Saline Flush) 3 ml QSHIFT PRN 03/27/21 14:30 Succinylcholine Chloride (Anectine) 200 mg STK-MED ONCE 02/17/21 10:00 02/25/21 08:40 DC Vancomycin HCl (Vanco Per Pharmacy) 1 each PRN DAILY PRN 03/04/21 18:30 03/05/21 08:59 DC 03/04/21 19:47 1 EACH Vancomycin HCl (Vancomycin Trough Level) 1 each 1X ONCE 03/06/21 07:00 03/06/21 07:01 Cancel Vancomycin HCl 1.5 gm/Sodium Chloride 500 ml @ 250 mls/hr Q12H 03/05/21 07:30 03/05/21 08:58 DC Vancomycin HCl 1 gm/Sodium Chloride 250 ml @ 250 mls/hr Q12H 03/04/21 20:00 UNV Vancomycin HCl 2 gm/Sodium Chloride 500 ml @ 250 mls/hr 1X ONCE 03/04/21 19:00 03/04/21 20:59 DC 03/04/21 19:26 250 MLS/HR Vecuronium Naylor (Norcuron Bolus) 6 mg PRN Q2HRS PRN 03/06/21 14:30 03/16/21 10:16 5 MG Vitamin A/Vitamin D (Vitamin A & D Ointment) 1 reji PRN Q1HR PRN 03/10/21 01:45 03/20/21 09:34 1 REJI Zolpidem Tartrate (Ambien) 5 mg PRN QHS PRN 04/10/21 11:15 Lab Laboratory Tests Test 04/15/21 18:08 04/15/21 21:04 04/15/21 23:48 04/16/21 05:15 Glucose (Fingerstick) 197 mg/dL (70-99) 216 mg/dL (70-99) 211 mg/dL (70-99) 223 mg/dL (70-99) Test 04/16/21 05:37 Sodium Level 142 mmol/L (136-145) Potassium Level 2.7 mmol/L (3.5-5.1) Chloride Level 102 mmol/L (98-107) Carbon Dioxide Level 26 mmol/L (21-32) Anion Gap 14 (6-14) Blood Urea Nitrogen 48 mg/dL (7-20) Creatinine 1.9 mg/dL (0.6-1.0) Estimated GFR (Cockcroft-Gault) 28.6 Glucose Level 243 mg/dL (70-99) Calcium Level 9.5 mg/dL (8.5-10.1) Results All relevant outside records, renal labs, imaging studies, telemetry/EKG's were reviewed. Justicifation of Admission Dx: Justifications for Admission: Justification of Admission Dx: N/A GIGI CARMEN MD Apr 16, 2021 09:47
[2021-04-16] MEDS: INSULIN GLARGINE SYRINGE. SQ SCH ×2 (11:39→21:41)
--- NOTE | 2021-04-16 13:17 | NUR ---
SS following up with discharge planning. SS reviewed pt chart and discussed with pt RN. Pt is currently on trach shield at 35%. COVID19 recovered. G tube in place. NPO. PT/OT recommending acute rehabilitation. Self pay. [facility] following. Per [facility], they have spoken with spouse on several occasions and requested documents. Medicaid and Disability Applications are submitted and are still pending at this time. To this date [facility] is still needing proof of income and bank statements for past 90 days, vehicle registration, ID, SSN card, Certificate, and proof of address. Pt's spouse has been made aware of the need for these documents and has not provided them at this time. SS discussed with [facility]. SS will continue to follow for discharge planning. Addendum: 04/16/21 at 1328 by FIORELLA LEW SS Pt spouse notified SS via phone that he is scanning and e-mailing some documents to [employer] today. SS contacted Kavitha at [employer] and notified. Kavitha reaching out to spouse to verify e-mail address.
--- NOTE | 2021-04-16 15:52 | NUR ---
Wound/Ostomy Care Wound Type/Assessment: Wound care follow up for buttocks PU unstageable, wound remains eschar and slough covered but appears to have improved since last visit. Wound cleansed and assessed. Left buttock PU remains resolved. Pt is more alert and able to help with most of the turning and repositioning. No other wounds noted upon complete head to toe assessment. Treatment Recommendations/Plan: Cleanse wound and pat dry Buttocks: Apply honey alginate, cover with foam or abd and tape. Change dressing every 2-3 days. Dressing applied. Education provided: Pt is alert and nods in understanding of POC. Patient encouraged to turn every 2 hours. Offloading surface/device: Patient requesting to sit on side of bed waiting for speech therapy, wedge and pillows for repositioning, will need P500 if transfers out of ICU Recommended Referrals/Tests: N/A Discharge Recommendations for dressings: Dressing change instructions left in room as well as extra honey alginate. Bed lowered and call light in reach. Wound care will follow up on 04/23/21. Addendum: 04/16/21 at 1611 by TESSY PENNINGTON RN Wound care will follow up on instead of 04/23/21.
--- NOTE | 2021-04-16 19:30 | NUR ---
Pt in bed assessment completed vss poc explained pt denied pain at this ti me pt at bedside call light in reach bed alarm set pt reminded to call for assistance prior to getting oob.will resume care and continue to monitor pt.
[2021-04-16] MEDS: LABETALOL 20 MG/4 ML DISP.SYRIN. IVP PRN (19:53)
[2021-04-16] MEDS: ATORVASTATIN CALCIUM 40 MG TABLET. PO SCH (21:37)
[2021-04-17 02:03] VITALS: BP 158/82
[2021-04-17] MEDS: HEPARIN for SUB-Q USE 5,000 UNIT/ML VIAL. SQ SCH ×3 (05:41→22:20)
[2021-04-17] MEDS: INSULIN LISPRO 300 UNITS/3 ML VIAL. SQ SCH ×3 (05:42→17:57)
[2021-04-17 05:55] LABS: BASO # 0.2 x10^3/uL (0.0-0.2); BASO % 1 % (0-3); EOS # 0.3 x10^3/uL (0.0-0.7); EOS % 2 % (0-3); HEMATOCRIT 31.3 % (36.0-47.0); HEMOGLOBIN 10.3 g/dL (12.0-15.5); LYMPH # 2.3 x10^3/uL (1.0-4.8); LYMPH % 20 % (24-48); MEAN CORPUSCULAR HEMOGLOBIN 28 pg (25-35); MEAN CORPUSCULAR HGB CONC 33 g/dL (31-37); MEAN CORPUSCULAR VOLUME 85 fL (79-100); MONO # 1.2 x10^3/uL (0.0-1.1); MONO % 10 % (0-9); NEUT # 7.9 x10^3/uL (1.8-7.7); NEUT % 67 % (31-73); PLATELET COUNT 279 x10^3/uL (140-400); RED BLOOD COUNT 3.67 x10^6/uL (3.50-5.40); RED CELL DISTRIBUTION WIDTH 14.4 % (11.5-14.5); WHITE BLOOD COUNT 11.9 x10^3/uL (4.0-11.0)
[2021-04-17 06:05] LABS: CALCIUM 9.3 mg/dL (8.5-10.1); CREATININE 1.8 mg/dL (0.6-1.0); GFR 30.4; MAGNESIUM 1.6 mg/dL (1.8-2.4); POTASSIUM 3.2 mmol/L (3.5-5.1)
[2021-04-17 07:00] VITALS: BP 192/91
[2021-04-17] MEDS: IPRATRPIUM/ALBUTEROL 0.5/2.5MG 3 ML NEBU. NEB SCH ×4 (07:46→20:21)
--- NOTE | 2021-04-17 08:21 | PDOC ---
PULMONARY PROGRESS NOTES DATE: 04/17/21 TIME: 08:21 Subjective I walked into the room, patient sleeping. I did not awaken her No signs of respiratory distress Vitals Vital Signs Date Time Temp Pulse Resp B/P (MAP) Pulse Ox O2 Delivery O2 Flow Rate FiO2 04/17/21 07:45 100 Tracheal Collar 8.0 04/17/21 02:03 98.9 111 18 158/82 (107) 98.9 ROS: No Nausea, No Chest Pain, No Abdominal Pain, No Increase Cough Lungs: Crackles Cardiovascular: S1 Abdomen: Soft, Non-tender Neuro Exam: Alert, Normal Speech Skin: Warm Labs Laboratory Tests Test 04/15/21 18:08 04/15/21 21:04 04/15/21 23:48 04/16/21 05:15 Glucose (Fingerstick) 197 mg/dL (70-99) 216 mg/dL (70-99) 211 mg/dL (70-99) 223 mg/dL (70-99) Test 04/16/21 05:37 04/16/21 12:17 04/16/21 16:57 04/16/21 21:00 Sodium Level 142 mmol/L (136-145) Potassium Level 2.7 mmol/L (3.5-5.1) Chloride Level 102 mmol/L (98-107) Carbon Dioxide Level 26 mmol/L (21-32) Anion Gap 14 (6-14) Blood Urea Nitrogen 48 mg/dL (7-20) Creatinine 1.9 mg/dL (0.6-1.0) Estimated GFR (Cockcroft-Gault) 28.6 Glucose Level 243 mg/dL (70-99) Calcium Level 9.5 mg/dL (8.5-10.1) Glucose (Fingerstick) 265 mg/dL (70-99) 208 mg/dL (70-99) 262 mg/dL (70-99) Test 04/16/21 23:51 04/17/21 05:26 04/17/21 05:30 Glucose (Fingerstick) 215 mg/dL (70-99) 167 mg/dL (70-99) White Blood Count 11.9 x10^3/uL (4.0-11.0) Red Blood Count 3.67 x10^6/uL (3.50-5.40) Hemoglobin 10.3 g/dL (12.0-15.5) Hematocrit 31.3 % (36.0-47.0) Mean Corpuscular Volume 85 fL (79-100) Mean Corpuscular Hemoglobin 28 pg (25-35) Mean Corpuscular Hemoglobin Concent 33 g/dL (31-37) Red Cell Distribution Width 14.4 % (11.5-14.5) Platelet Count 279 x10^3/uL (140-400) Neutrophils (%) (Auto) 67 % (31-73) Lymphocytes (%) (Auto) 20 % (24-48) Monocytes (%) (Auto) 10 % (0-9) Eosinophils (%) (Auto) 2 % (0-3) Basophils (%) (Auto) 1 % (0-3) Neutrophils # (Auto) 7.9 x10^3/uL (1.8-7.7) Lymphocytes # (Auto) 2.3 x10^3/uL (1.0-4.8) Monocytes # (Auto) 1.2 x10^3/uL (0.0-1.1) Eosinophils # (Auto) 0.3 x10^3/uL (0.0-0.7) Basophils # (Auto) 0.2 x10^3/uL (0.0-0.2) Sodium Level 142 mmol/L (136-145) Potassium Level 3.2 mmol/L (3.5-5.1) Chloride Level 102 mmol/L (98-107) Carbon Dioxide Level 28 mmol/L (21-32) Anion Gap 12 (6-14) Blood Urea Nitrogen 39 mg/dL (7-20) Creatinine 1.8 mg/dL (0.6-1.0) Estimated GFR (Cockcroft-Gault) 30.4 Glucose Level 192 mg/dL (70-99) Calcium Level 9.3 mg/dL (8.5-10.1) Magnesium Level 1.6 mg/dL (1.8-2.4) Laboratory Tests Test 04/16/21 12:17 04/16/21 16:57 04/16/21 21:00 04/16/21 23:51 Glucose (Fingerstick) 265 mg/dL (70-99) 208 mg/dL (70-99) 262 mg/dL (70-99) 215 mg/dL (70-99) Test 04/17/21 05:26 04/17/21 05:30 Glucose (Fingerstick) 167 mg/dL (70-99) White Blood Count 11.9 x10^3/uL (4.0-11.0) Red Blood Count 3.67 x10^6/uL (3.50-5.40) Hemoglobin 10.3 g/dL (12.0-15.5) Hematocrit 31.3 % (36.0-47.0) Mean Corpuscular Volume 85 fL (79-100) Mean Corpuscular Hemoglobin 28 pg (25-35) Mean Corpuscular Hemoglobin Concent 33 g/dL (31-37) Red Cell Distribution Width 14.4 % (11.5-14.5) Platelet Count 279 x10^3/uL (140-400) Neutrophils (%) (Auto) 67 % (31-73) Lymphocytes (%) (Auto) 20 % (24-48) Monocytes (%) (Auto) 10 % (0-9) Eosinophils (%) (Auto) 2 % (0-3) Basophils (%) (Auto) 1 % (0-3) Neutrophils # (Auto) 7.9 x10^3/uL (1.8-7.7) Lymphocytes # (Auto) 2.3 x10^3/uL (1.0-4.8) Monocytes # (Auto) 1.2 x10^3/uL (0.0-1.1) Eosinophils # (Auto) 0.3 x10^3/uL (0.0-0.7) Basophils # (Auto) 0.2 x10^3/uL (0.0-0.2) Sodium Level 142 mmol/L (136-145) Potassium Level 3.2 mmol/L (3.5-5.1) Chloride Level 102 mmol/L (98-107) Carbon Dioxide Level 28 mmol/L (21-32) Anion Gap 12 (6-14) Blood Urea Nitrogen 39 mg/dL (7-20) Creatinine 1.8 mg/dL (0.6-1.0) Estimated GFR (Cockcroft-Gault) 30.4 Glucose Level 192 mg/dL (70-99) Calcium Level 9.3 mg/dL (8.5-10.1) Magnesium Level 1.6 mg/dL (1.8-2.4) Medications Active Scripts Medications Dose Route/Sig Max Daily Dose Days Date Category Novolog Flexpen (Insulin Aspart) 100 Unit/1 Ml Insuln.pen 3-7 SQ TIDACHC 02/07/21 Reported Lisinopril 5 Mg Tablet 1 Tab PO DAILY 02/07/21 Reported Lantus Solostar (Insulin Glargine,Hum.rec.anlog) 100 Unit/1 Ml Insuln.pen 5 Unit SQ QHS 04/09/15 Reported Atorvastatin Calcium 40 Mg Tablet 40 Mg PO HS 04/09/15 Reported Impression . IMPRESSION: 1. Acute hypoxic respiratory failure secondary to COVID-19 viral pneumonia/acute lung injury and early acute respiratory distress syndrome. S/P intubation 02/17/21. Status post tracheostomy. 2. Nonsmoker. 3. Abnormal chest x-ray consistent with COVID-19 viral pneumonia. 4. Diabetic ketoacidosis--resolved 5. Underlying obesity contributing to hypoxia as well. 6. BOB . hemodialysis started 03/07 7. Fever, 30 ID 8. Abnormal chest x-ray with diffuse interstitial infiltrates compatible with viral pneumonia 9. [place] in the sputum is a contamination 10. Septic shoc 11. s/p lap G-tube 03/27 12. Delirium Plan . Updated 04/17 Patient asleep I did not wake her up Continue current support On visual inspection no respiratory distress was noted updated 04/16 Continue current trach shield with [place] valve Up to chair PT OT Updated 04/15 Continue current support Discussed with Dr. Mills yesterday, May decannulate in 24 to 48 hours PT OT Updated 04/14 Continue current support Downsize trach, will discuss with surgery Hemodialysis per nephrology PT OT MONTEZ OROPEZA MD Apr 17, 2021 08:21
[2021-04-17] MEDS: NYSTATIN TOPICAL POWDER 15GM BOTTLE. TP SCH ×2 (09:00→22:00)
[2021-04-17] MEDS: ONDANSETRON PF 4 MG/2 ML VIAL. IVP PRN ×2 (09:22→17:38)
[2021-04-17] MEDS: FAMOTIDINE 20 MG/2 ML VIAL IVP SCH (09:23)
[2021-04-17] MEDS: DOCUSATE 100 MG/10 ML SOLUTION. PO SCH ×2 (09:33→21:47)
[2021-04-17] MEDS: MULTIVITAMINS,THERAPEUTIC 5 ML ORAL LIQUID. PEG SCH (09:33)
[2021-04-17] MEDS: INSULIN GLARGINE SYRINGE. SQ SCH (09:35)
[2021-04-17] MEDS ORDERED: BARIUM SULFATE 40% (APPLE) 148 GM PWD. PO ONE (10:00)
--- NOTE | 2021-04-17 10:01 | PDOC ---
Infectious Disease Note Subjective: Subjective Patient without complaints Vital Signs: Vital Signs Vital Signs Date Time Temp Pulse Resp B/P (MAP) Pulse Ox O2 Delivery O2 Flow Rate FiO2 04/17/21 09:33 120 192/91 04/17/21 07:45 100 Tracheal Collar 8.0 04/17/21 07:00 98.5 18 98.5 Physical Exam: PHYSICAL EXAM GENERAL: Awake, pleasantly confused HEENT: Normocephalic, atraumatic. Anicteric. Slight bilateral periorbital edema. Latter improving Neck right IJ HDC clean Trach + capped LUNGS: Rhonchi. HEART: S1, S2. No murmurs. ABDOMEN: Obese, soft. Bowel sounds present. Nontender, nondistended. PEG tube pulled out by patient GENITOURINARY: Kern and fecal tube in place. EXTREMITIES: Edema present no cyanosis. CENTRAL NERVOUS SYSTEM: Intubated. PSYCHIATRIC: Confused Derm has pressure wounds wound pictures noted in chart. Generalized rash, Right PICC line removed; left PICC line 04/07/2021 Right IJ HDC clean March 07 Medications: Inpatient Meds: Medications reviewed. Labs: Lab Laboratory Tests Test 04/16/21 12:17 04/16/21 16:57 04/16/21 21:00 04/16/21 23:51 Glucose (Fingerstick) 265 mg/dL (70-99) 208 mg/dL (70-99) 262 mg/dL (70-99) 215 mg/dL (70-99) Test 04/17/21 05:26 04/17/21 05:30 Glucose (Fingerstick) 167 mg/dL (70-99) White Blood Count 11.9 x10^3/uL (4.0-11.0) Red Blood Count 3.67 x10^6/uL (3.50-5.40) Hemoglobin 10.3 g/dL (12.0-15.5) Hematocrit 31.3 % (36.0-47.0) Mean Corpuscular Volume 85 fL (79-100) Mean Corpuscular Hemoglobin 28 pg (25-35) Mean Corpuscular Hemoglobin Concent 33 g/dL (31-37) Red Cell Distribution Width 14.4 % (11.5-14.5) Platelet Count 279 x10^3/uL (140-400) Neutrophils (%) (Auto) 67 % (31-73) Lymphocytes (%) (Auto) 20 % (24-48) Monocytes (%) (Auto) 10 % (0-9) Eosinophils (%) (Auto) 2 % (0-3) Basophils (%) (Auto) 1 % (0-3) Neutrophils # (Auto) 7.9 x10^3/uL (1.8-7.7) Lymphocytes # (Auto) 2.3 x10^3/uL (1.0-4.8) Monocytes # (Auto) 1.2 x10^3/uL (0.0-1.1) Eosinophils # (Auto) 0.3 x10^3/uL (0.0-0.7) Basophils # (Auto) 0.2 x10^3/uL (0.0-0.2) Sodium Level 142 mmol/L (136-145) Potassium Level 3.2 mmol/L (3.5-5.1) Chloride Level 102 mmol/L (98-107) Carbon Dioxide Level 28 mmol/L (21-32) Anion Gap 12 (6-14) Blood Urea Nitrogen 39 mg/dL (7-20) Creatinine 1.8 mg/dL (0.6-1.0) Estimated GFR (Cockcroft-Gault) 30.4 Glucose Level 192 mg/dL (70-99) Calcium Level 9.3 mg/dL (8.5-10.1) Magnesium Level 1.6 mg/dL (1.8-2.4) Micro GRAM STAIN EVALUATION Final Final This specimen is of good quality and is acceptable for routine bacterial culture. Culture results to follow. NO ORGANISMS SEEN. SQUAMOUS EPI CELL:RARE PMN (WBCs):MODERATE Unless otherwise specified, Testing Performed by: [address] [address] For Inquires, the Physician may contact the Microbiology department at [phone] RESPIRATORY CULTURE Final Final MODERATE GRAM NEGATIVE RODS on 03/18/21 at 1120 FINAL ID= [ACINETOBACTER [email or web address].] ACINETOBACTER URSINGII. ANTIMICROBIAL SUSCEPTIBILITY Final Comment NEG SAGE 56 ACINETOBACTER URSINGII. ANTIBIOTIC RESULT INTERPRETATION AMPICILLIN/SULBACTAM <=4/2 S AMIKACIN <=16 S CEFTRIAXONE 2 S CEFTAZIDIME 16 I CEFOTAXIME 16 I CIPROFLOXACIN <=0.25 S CEFEPIME 4 S GENTAMICIN <=2 S LEVOFLOXACIN <=0.5 S RUN DATE: 03/19/21 [facility] *LIVE* PAGE 2 RUN TIME: 1120 Specimen Inquiry SPEC: [id number] PATIENT: ARIADNA BANKS [id number] (Continued) Procedure Result ----- ------- CONTINUED ON NEXT PAGE RUN DATE: 03/19/21 [facility] *LIVE* PAGE 3 RUN TIME: 1120 Specimen Inquiry SPEC: [id number] PATIENT: ARIADNA BANKS [id number] (Continued) Procedure Result ANTIMICROBIAL SUSCEPTIBILITY Final (continued) MINOCYCLINE <=4 S MEROPENEM <=1 S TRIMETHOPRIM/SULFAMETHOXAZOLE <=0.5/9.5 S TOBRAMYCIN <=2 S Unless otherwise specified, Testing Performed by: [address] [address] For Inquires, the Physician may contact the Microbiology department at [phone] Culture negative Objective: Assessment: 1. Febrile illness. Resolved 2. COVID-19 infection present on date of admission, 02/06/2021. Status post remdesivir, dexamethasone. 3. Acute hypoxic respiratory failure, status post intubation. S/P Trach on 03/17 Trach cultures positive for Rock albicans and now acinebacter ursungi 4. Diabetes. 5. Diarrhea. 6. Hypertension. 7. Hyperlipidemia. 8. Anemia. 9. BOB on HD 10.UC orck albican, ua neg 11. Nausea and vomiting 12. Leukocytosis likely reactive as patient had nausea and vomiting has pulled out PEG tube Plan: Plan of Care Monitor off antibiotics Wound care as directed Continue supportive care. KAITLYNN CRAIG MD Apr 17, 2021 10:01
--- NOTE | 2021-04-17 10:05 | PDOC ---
DATE OF SERVICE DATE: 04/17/21 TIME: 10:04 SUBJECTIVE ROS Alert , No SOB, No N/V OBJECTIVE Vital Signs Vital Signs Date Time Temp Pulse Resp B/P (MAP) Pulse Ox O2 Delivery O2 Flow Rate FiO2 04/17/21 09:33 120 192/91 04/17/21 07:45 100 Tracheal Collar 8.0 04/17/21 07:00 98.5 18 98.5 I & 0 Intake and Output 04/17/21 07:00 Intake Total 100 ml Output Total 1200 ml Balance -1100 ml Intake Oral 0 ml IV Total 100 ml Output Urine Total 1200 ml # Bowel Movements 1 PHYSICAL EXAM Physical Exam ENERAL: NAD , Trach collar HEENT: Anicteric. . Neck Trach+ LUNGS: decreased at bases HEART: S1, S2. No murmurs. ABDOMEN: Obese, soft. Bowel sounds present. PEG + GENITOURINARY: Kern in place. EXTREMITIES: Edema present no cyanosis. DIAGNOSIS/ASSESSMENT Assessment & Plan BOB-ATN- was anuric initially , non Oliguric with good uop ,improving renal function . Required dialysis , last was on Tuesday (04/10) E-Lytes, Resp status stable. Supportive care, I/O avoid nephrotoxins, Access- temp HDC HypoNatremia - resolved stable HypoKalemia - switched to Jevity from Nepro . K mildldy low, replace . Has Gastrostomy tube replaced 04/14 DM 2 - Glucosuria + POA COVID 19 Pneumonia - Unvaccinated , treated, Off isolation Acute Resp Failure- Intubated ; CxR 04/01 Moderate diffuse pulmonary opacities, slightly decreased compared to prior. HTN BP very high during hospitalization. She reports no Hx of HTN , states was on lisinopril for Renoprotection with Hx of DM Anemia -avoid DOYLE 2/2 to Thrombogenic state Family History of ESRD - Per at bedside- Pt's Mom was on dialysis and sister is on Dialysis COMMENT/RELEVANT DATA Meds Current Medications Medications (Trade) Dose Ordered Sig/Pepe Start Time Stop Time Status Last Admin Dose Admin Acetaminophen (Tylenol Supp) 650 mg PRN Q6HRS PRN 02/08/21 01:45 02/17/21 10:45 DC Acetaminophen (Tylenol) 500 mg 1X PRN PRN 03/17/21 13:30 03/18/21 13:29 DC Albumin Human 200 ml @ 200 mls/hr 1X PRN PRN 04/06/21 08:45 04/06/21 14:44 DC 04/06/21 10:43 200 MLS/HR Albuterol Sulfate (Ventolin Hfa) 60 puff STK-MED ONCE 03/17/21 11:29 03/17/21 11:29 DC Albuterol/ Ipratropium (Duoneb) 3 ml RTQID 04/15/21 10:00 04/17/21 07:46 3 ML Alteplase, Recombinant (Cathflo For Central Catheter Clearance) 1 mg 1X ONCE 02/27/21 14:30 02/27/21 14:36 DC 02/27/21 15:19 1 MG Alteplase, Recombinant (Cathflo) 2 mg 1X ONCE 02/27/21 11:00 02/27/21 11:01 DC 02/27/21 11:20 2 MG Amlodipine Besylate (Norvasc) 10 mg DAILY 03/31/21 09:00 04/17/21 09:33 10 MG Atorvastatin Calcium (Lipitor) 40 mg HS 02/08/21 21:00 04/16/21 21:37 40 MG Atropine Sulfate (ATROPINE 0.5mg SYRINGE) 0.5 mg PRN Q5MIN PRN 02/16/21 12:00 Azithromycin 250 mg/Sodium Chloride 250 ml @ 250 mls/hr Q24H 02/14/21 13:30 02/18/21 14:29 DC 02/18/21 11:51 250 MLS/HR Barium Sulfate (Varibar Thin Liquid Apple) 148 gm 1X ONCE 04/17/21 10:00 04/17/21 10:02 DC Benzonatate (Tessalon Perle) 100 mg [id number] 02/10/21 23:30 02/17/21 10:45 DC 02/16/21 22:07 100 MG Bupivacaine HCl/ Epinephrine Bitart (Sensorcain-Epi 0.5% Kit) 30 ml STK-MED ONCE 03/27/21 10:05 03/27/21 10:05 DC 03/27/21 13:12 16 ML Bupivacaine HCl/ Epinephrine Bitart (Sensorcain-Epi 0.5%-[id number] Mpf) 30 ml STK-MED ONCE 03/17/21 10:47 03/17/21 10:47 DC Carvedilol (Coreg) 6.25 mg [id number] 02/08/21 20:30 02/23/21 15:50 DC 02/23/21 08:06 6.25 MG Cefazolin Sodium/ Dextrose (Ancef 2gm Premix) 2 gm STK-MED ONCE 03/23/21 13:00 03/24/21 11:58 DC Ceftriaxone Sodium (Rocephin) 1 gm Q24H 02/14/21 13:00 02/23/21 07:34 DC 02/22/21 12:42 1 GM Cellulose (Surgicel Fibrillar 1x2) 1 each STK-MED ONCE 03/17/21 10:47 03/17/21 10:47 DC 03/17/21 11:56 1 EACH Daptomycin 480 mg/ Sodium Chloride 50 ml @ 100 mls/hr QMWF 03/23/21 16:00 03/26/21 10:29 DC 03/25/21 19:52 100 MLS/HR Daptomycin 500 mg/ Sodium Chloride 50 ml @ 100 mls/hr Q48H 04/02/21 10:00 04/09/21 10:52 DC 04/08/21 13:14 100 MLS/HR Dexamethasone Sodium Phosphate (Decadron) 2 mg 1X ONCE 02/27/21 09:00 02/26/21 07:15 DC Dexmedetomidine HCl 400 mcg/ Sodium Chloride 100 ml @ 0 mls/hr CONT PRN 02/27/21 09:45 04/16/21 15:07 DC 04/15/21 05:36 0.2 MLS/HR Dextrose (Dextrose 50%-Water Syringe) 12.5 gm PRN Q15MIN PRN 03/01/21 13:00 03/01/21 12:55 12.5 GM Diphenhydramine HCl (Benadryl) 25 mg 1X PRN PRN 03/17/21 13:30 03/18/21 13:29 DC Docusate Sodium (Colace Solution) 100 mg BID 02/23/21 12:00 04/17/21 09:33 100 MG Docusate Sodium (Colace) 100 mg PRN DAILY PRN 02/07/21 08:45 02/23/21 10:47 DC Enalaprilat (Vasotec Inj) 0.625 mg Q6HRS 02/08/21 16:15 02/09/21 16:01 DC 02/09/21 13:42 0.625 MG Enoxaparin Sodium (Lovenox 30mg Syringe) 30 mg Q24H 03/08/21 09:00 03/12/21 15:38 DC 03/12/21 09:04 30 MG Enoxaparin Sodium (Lovenox 40mg Syringe) 40 mg BID 02/09/21 09:00 03/08/21 13:56 DC 03/08/21 08:26 40 MG Enoxaparin Sodium (Lovenox Per Pharmacy Prophylaxis Dosing) 1 each PRN DAILY PRN 02/09/21 06:45 03/12/21 15:38 DC Ephedrine Sulfate (ePHEDrine PF IN SALINE SYRINGE) 50 mg STK-MED ONCE 03/17/21 10:56 03/17/21 10:56 DC Famotidine (Pepcid Vial) 20 mg DAILY 03/10/21 09:00 04/17/21 09:23 20 MG Fentanyl (Duragesic 25mcg/ Hr Patch) 1 patch Q3DAYS 04/13/21 13:00 04/16/21 09:25 1 PATCH Fentanyl Citrate (Fentanyl 2ml Vial) 100 mcg 1X ONCE 04/13/21 14:00 04/13/21 14:03 DC 04/13/21 13:54 50 MCG Fluconazole/ Sodium Chloride 100 ml @ 100 mls/hr Q24H 03/07/21 09:00 03/17/21 08:03 DC 03/16/21 08:29 100 MLS/HR Fluoxetine HCl (PROzac) 20 mg 1X ONCE 04/10/21 11:15 04/10/21 11:34 DC Furosemide (Lasix) 40 mg 1X ONCE 03/29/21 15:00 03/29/21 15:02 DC 03/29/21 15:22 40 MG Glycerin/ Hypromellose/ Polyethylene (Artificial Tears) 1 drop PRN Q1HR PRN 02/17/21 10:00 04/05/21 08:02 1 DROP Glycopyrrolate (Robinul) 1 mg STK-MED ONCE 03/27/21 14:07 03/27/21 14:07 DC Guaifenesin (Robitussin Dm) 10 ml PRN Q6HRS PRN 02/10/21 23:30 02/16/21 09:06 10 ML Haloperidol Lactate (Haldol Inj) 5 mg Q8HRS 04/01/21 11:30 04/07/21 14:58 DC 04/07/21 05:51 5 MG Heparin Sodium (Porcine) (Heparin Sodium) 5,000 unit Q8HRS 03/13/21 06:00 04/17/21 05:41 5,000 UNIT Hydralazine HCl (Apresoline Inj) 10 mg PRN Q4HRS PRN 02/11/21 12:15 04/13/21 11:44 10 MG Hydromorphone HCl (Dilaudid) 0.5 mg PRN Q10MIN PRN 03/27/21 06:00 03/28/21 05:59 DC Info (CONTRAST GIVEN -- Rx MONITORING) 1 each PRN DAILY PRN 04/13/21 13:45 04/15/21 13:44 DC Info (PHARMACY MONITORING -- do not chart) 1 each PRN DAILY PRN 04/10/21 13:30 Cancel Insulin Glargine (Lantus Syringe) 10 unit BID 04/16/21 09:00 04/17/21 09:35 10 UNIT Insulin Human Lispro (HumaLOG) 12 units Q6HRS 02/20/21 12:00 02/28/21 15:38 DC 02/27/21 05:41 12 UNITS Insulin Human Regular 100 ml @ 10 mls/hr 1X ONCE 02/07/21 06:30 02/07/21 16:54 DC 02/07/21 09:31 6.5 MLS/HR Insulin Human Regular 100 unit/ Sodium Chloride 101 ml @ 0 mls/hr CONT PRN PRN 02/07/21 06:00 02/07/21 16:54 DC Iohexol (Omnipaque 240 Mg/ml) 50 ml 1X ONCE 04/13/21 13:45 04/13/21 13:46 DC 04/13/21 13:45 28 ML Labetalol HCl (Normodyne Iv Push) 10 mg PRN Q2HR PRN 02/08/21 00:45 04/16/21 19:53 10 MG Lactobacillus Rhamnosus (Culturelle) 1 cap BID 02/16/21 21:00 02/17/21 10:45 DC 02/16/21 22:02 1 CAP Lidocaine HCl (Buffered Lidocaine 1%) 3 ml STK-MED ONCE 03/07/21 13:25 03/07/21 13:25 DC Linezolid (Zyvox) 600 mg BID 03/05/21 09:00 03/12/21 07:00 DC 03/11/21 20:33 600 MG Linezolid/Dextrose 300 ml @ 300 mls/hr Q12HR 04/09/21 12:00 04/11/21 12:54 DC 04/11/21 09:59 300 MLS/HR Lisinopril (Prinivil) 20 mg DAILY 02/17/21 09:00 03/09/21 10:43 DC 02/27/21 09:10 20 MG Lorazepam (Ativan Inj) 1 mg PRN Q2HR PRN 04/10/21 11:15 04/17/21 09:22 1 MG Magnesium Sulfate 50 ml @ 25 mls/hr PRN DAILY PRN 04/04/21 13:00 Meropenem 1 gm/ Sodium Chloride 100 ml @ 200 mls/hr Q24H 03/18/21 17:00 04/10/21 11:57 DC 04/09/21 17:00 200 MLS/HR Methylprednisolone Sodium Succinate (SOLU-Medrol 125MG VIAL) 80 mg Q8HRS 02/25/21 09:00 02/26/21 07:09 DC 02/26/21 05:52 80 MG Metoclopramide HCl (Reglan Vial) 10 mg PRN Q6HRS PRN 02/08/21 00:45 02/12/21 15:51 10 MG Micafungin Sodium 100 mg/Dextrose 100 ml @ 100 mls/hr Q24H 03/21/21 18:00 03/25/21 10:27 DC 03/24/21 16:36 100 MLS/HR Midazolam HCl (Versed) 2 mg 1X ONCE 04/13/21 14:00 04/13/21 14:03 DC 04/13/21 13:54 2 MG Morphine Sulfate (Morphine Sulfate) 1 mg PRN Q10MIN PRN 03/27/21 06:00 03/28/21 05:59 DC Multi-Ingred Cream/Lotion/Oil/ Oint (Artificial Tears Eye Ointment) 1 reji PRN Q1HR PRN 03/17/21 17:30 03/20/21 15:55 1 REJI Multivitamins/ Minerals Therapeutic (Centrum Multivit-Mineral Liq) 5 ml DAILY 03/14/21 09:00 04/17/21 09:33 5 ML Naloxone HCl (Narcan) 0.4 mg PRN Q2MIN PRN 03/27/21 14:30 Neostigmine Ripley (Neostigmine Methylsulfate) 5 mg STK-MED ONCE 03/27/21 14:06 03/27/21 14:07 DC Norepinephrine Bitartrate 8 mg/ Dextrose 258 ml @ 21.711 mls/ hr CONT PRN 03/06/21 13:45 04/15/21 14:14 DC 03/19/21 18:45 23.3 MLS/HR Nystatin (Nystop) 1 reji BID 03/02/21 21:00 04/16/21 21:37 1 REJI Ondansetron HCl (Zofran Odt) 4 mg 1X ONCE 02/06/21 23:30 02/06/21 23:31 DC 02/06/21 23:57 4 MG Ondansetron HCl (Zofran) 4 mg STK-MED ONCE 04/13/21 13:33 04/13/21 13:33 DC Phenylephrine HCl (PHENYLEPHRINE in 0.9% NACL PF) 1 mg STK-MED ONCE 03/27/21 13:46 03/27/21 13:46 DC Piperacillin Sod/ Tazobactam Sod (Zosyn Per Pharmacy) 1 each PRN DAILY PRN 02/23/21 07:45 03/17/21 10:04 DC Piperacillin Sod/ Tazobactam Sod 2.25 gm/Sodium Chloride 50 ml @ 100 mls/hr Q8HRS 03/07/21 14:00 03/17/21 08:03 DC 03/17/21 05:58 100 MLS/HR Piperacillin Sod/ Tazobactam Sod 3.375 gm/Sodium Chloride 50 ml @ 100 mls/hr Q6HRS 03/14/21 18:00 Cancel Piperacillin Sod/ Tazobactam Sod 4.5 gm/Sodium Chloride 100 ml @ 200 mls/hr Q6HRS 02/23/21 08:00 03/07/21 08:18 DC 03/07/21 06:12 200 MLS/HR Potassium Bicarbonate (Potassium Effervescent Tablet) 40 meq 1X ONCE 04/16/21 09:00 04/16/21 09:04 DC 04/16/21 09:22 40 MEQ Potassium Chloride/Water 100 ml @ 50 mls/hr 1X ONCE 04/16/21 09:00 04/16/21 10:59 DC 04/16/21 10:19 50 MLS/HR Potassium Chloride (Klor-Con) 40 meq 1X ONCE 02/13/21 12:00 02/13/21 12:01 DC 02/13/21 13:21 40 MEQ Prochlorperazine Edisylate (Compazine) 5 mg PACU PRN PRN 03/27/21 06:00 03/28/21 05:59 DC Propofol (Diprivan) 200 mg STK-MED ONCE 03/27/21 12:02 03/27/21 12:03 DC Remdesivir 100 mg/ Sodium Chloride 230 ml @ 460 mls/hr Q24H 02/15/21 12:00 02/18/21 12:29 DC 02/18/21 11:52 460 MLS/HR Remdesivir 200 mg/ Sodium Chloride 210 ml @ 210 mls/hr 1X ONCE 02/11/21 13:00 02/12/21 11:55 DC 02/11/21 14:33 210 MLS/HR Ringer's Solution 1,000 ml @ 30 mls/hr Q24H 03/27/21 06:00 03/27/21 17:59 DC Rocuronium Ripley (Zemuron) 50 mg STK-MED ONCE 03/27/21 13:16 03/27/21 13:17 DC Sennosides (Senna) 17.2 mg PRN BID PRN 02/07/21 08:45 02/22/21 08:29 17.2 MG Sevoflurane (Ultane) 60 ml STK-MED ONCE 03/27/21 14:19 03/27/21 14:20 DC Sodium Chloride 500 ml @ 500 mls/hr 1X ONCE 04/08/21 16:45 04/08/21 17:44 DC 04/08/21 17:10 500 MLS/HR Sodium Chloride (Normal Saline Flush) 3 ml QSHIFT PRN 03/27/21 14:30 Succinylcholine Chloride (Anectine) 200 mg STK-MED ONCE 02/17/21 10:00 02/25/21 08:40 DC Vancomycin HCl (Vanco Per Pharmacy) 1 each PRN DAILY PRN 03/04/21 18:30 03/05/21 08:59 DC 03/04/21 19:47 1 EACH Vancomycin HCl (Vancomycin Trough Level) 1 each 1X ONCE 03/06/21 07:00 03/06/21 07:01 Cancel Vancomycin HCl 1.5 gm/Sodium Chloride 500 ml @ 250 mls/hr Q12H 03/05/21 07:30 03/05/21 08:58 DC Vancomycin HCl 1 gm/Sodium Chloride 250 ml @ 250 mls/hr Q12H 03/04/21 20:00 UNV Vancomycin HCl 2 gm/Sodium Chloride 500 ml @ 250 mls/hr 1X ONCE 03/04/21 19:00 03/04/21 20:59 DC 03/04/21 19:26 250 MLS/HR Vecuronium Ripley (Norcuron Bolus) 6 mg PRN Q2HRS PRN 03/06/21 14:30 04/16/21 14:59 DC 03/16/21 10:16 5 MG Vitamin A/Vitamin D (Vitamin A & D Ointment) 1 reji PRN Q1HR PRN 03/10/21 01:45 03/20/21 09:34 1 REJI Zolpidem Tartrate (Ambien) 5 mg PRN QHS PRN 04/10/21 11:15 Lab Laboratory Tests Test 04/16/21 12:17 04/16/21 16:57 04/16/21 21:00 04/16/21 23:51 Glucose (Fingerstick) 265 mg/dL (70-99) 208 mg/dL (70-99) 262 mg/dL (70-99) 215 mg/dL (70-99) Test 04/17/21 05:26 04/17/21 05:30 Glucose (Fingerstick) 167 mg/dL (70-99) White Blood Count 11.9 x10^3/uL (4.0-11.0) Red Blood Count 3.67 x10^6/uL (3.50-5.40) Hemoglobin 10.3 g/dL (12.0-15.5) Hematocrit 31.3 % (36.0-47.0) Mean Corpuscular Volume 85 fL (79-100) Mean Corpuscular Hemoglobin 28 pg (25-35) Mean Corpuscular Hemoglobin Concent 33 g/dL (31-37) Red Cell Distribution Width 14.4 % (11.5-14.5) Platelet Count 279 x10^3/uL (140-400) Neutrophils (%) (Auto) 67 % (31-73) Lymphocytes (%) (Auto) 20 % (24-48) Monocytes (%) (Auto) 10 % (0-9) Eosinophils (%) (Auto) 2 % (0-3) Basophils (%) (Auto) 1 % (0-3) Neutrophils # (Auto) 7.9 x10^3/uL (1.8-7.7) Lymphocytes # (Auto) 2.3 x10^3/uL (1.0-4.8) Monocytes # (Auto) 1.2 x10^3/uL (0.0-1.1) Eosinophils # (Auto) 0.3 x10^3/uL (0.0-0.7) Basophils # (Auto) 0.2 x10^3/uL (0.0-0.2) Sodium Level 142 mmol/L (136-145) Potassium Level 3.2 mmol/L (3.5-5.1) Chloride Level 102 mmol/L (98-107) Carbon Dioxide Level 28 mmol/L (21-32) Anion Gap 12 (6-14) Blood Urea Nitrogen 39 mg/dL (7-20) Creatinine 1.8 mg/dL (0.6-1.0) Estimated GFR (Cockcroft-Gault) 30.4 Glucose Level 192 mg/dL (70-99) Calcium Level 9.3 mg/dL (8.5-10.1) Magnesium Level 1.6 mg/dL (1.8-2.4) Results All relevant outside records, renal labs, imaging studies, telemetry/EKG's were reviewed. Justicifation of Admission Dx: Justifications for Admission: Justification of Admission Dx: N/A GIGI CARMEN MD Apr 17, 2021 10:05
[2021-04-17 11:00] VITALS: BP 182/84
--- NOTE | 2021-04-17 11:03 | NUR ---
SS following up with discharge planning. SS reviewed pt chart and discussed with pt RN. Pt is currently on room air when wearing speaking valve and trach shield at 35% when valve is off. G tube in place. ST following. Video Swallow ordered. COVID19 recovered. PT/OT recommended acute rehabilitation. Self pay. Med Assist following. Medicaid and Disability applications pending. SS will continue to follow for discharge planning.
--- NOTE | 2021-04-17 12:00 | RAD ---
EXAM: Video swallow evaluation. HISTORY: Dysphagia. TECHNIQUE: Fluoroscopic imaging was performed with a speech pathologist during the oral administratio n of barium contrast of varying consistencies. 0 fluoroscopic spot images were saved. Video fluorosco py was performed. The total fluoroscopy time was 1.6 minutes. COMPARISON: None. FINDINGS: There is trace shallow penetration when swallowing thin barium contrast from a straw. There is no additional evidence of penetration with thin barium contrast from a cup or with additional bar ium consistencies. There is no aspiration. IMPRESSION: Trace shallow penetration of thin barium consistency from a straw. No evidence of aspirat ion. Please refer to the report by the speech pathologist for clinical recommendations. Electronically signed by: Roula Sanches MD (04/17/2021 11:57 AM) [id number]
--- NOTE | 2021-04-17 12:06 | PDOC ---
[facility] PROGRESS NOTE Date of Service DOS: DATE: 04/17/21 TIME: 12:04 Chief Complaint Chief Complaint COVID-19 respiratory failure DKA Hypotension Nausea Vomiting Combined metabolic and respiratory acidosis Acute electrolyte derangementhyponatremia, hypochloremia due to volume depletion Hyperglycemia BOB due to ATN, requiring dialysis Erythrocytosis Candiduria Sacral decubitus ulcer S/P Trach on (03/17/21) Trach cultures positive for [place] albicans and now acinebacter ursungi History of Present Illness History of Present Illness 04/17 Patient evaluated and examined at bedside. She is pretty alert today. Underwent video swallow study earlier and cleared for regular diet with thin liquids. Definite improvement for her. On trach collar when I saw her. Continue current treatments. Watch blood pressure. If she well keep up a consistent amount of p.o. intake may be able to stop tube feeds and PEG tube removal. But this is far down the line. 04/16 Patient seen examined at bedside. Transfer out of the ICU yesterday. Speech therapy to evaluate this morning. Improved notably since I last saw her in the ICU. Continue PEG feeds. Blood pressure treatment. Plan of care discussed with bedside RN. 04/15/2021 Patient seen and examined in the ICU She has clean dry intact tracheostomy with trach shield PEG feeds running at 30 cc an hour She really wants to drink water I told her that we are awaiting speech therapy to reevaluate her Chart reviewed Discussed with RN 04/14/2021 Patient seen and examined in the ICU She remains pleasantly confused Has a new PEG in place Discussed with physical therapy Discussed with RN Chart reviewed 04/13/2021 Patient seen and examined in the ICU She is pleasantly confused Sedated with Precedex and fentanyl I discussed with the speech therapist the patient has no laryngeal movement Now she is n.p.o. again Going for new PEG placement in interventional radiology hopefully later today Her trach is clean Chart reviewed Discussed with RN 04/12/2021 Patient seen and examined in the ICU Her is present today and seems to be good support for her Chart reviewed Discussed with RN Still sedated with Precedex and fentanyl but awake 04/11/2021 Patient seen and examined in the ICU She remains quite confused currently sedated Chart reviewed Discussed with RN Had some nausea vomiting last night Pulled out her PEG yesterday Currently on fentanyl and Precedex IV Zyvox hanging 04/10/2021 Patient seen and examined in the ICU She is pleasantly confused Has a trach shield in place Discussed with RN Chart reviewed We are adding in some as needed Ativan and scheduled Prozac Ms Borges is a 46 year old female who presented with nausea/vomiting since 7 AM 02/06/2021 in the morning. Patient stated that her recently tested positive for Covid. She states that he "coughed in my face because he thought it was funny." She reports subjective fevers and chills and nausea/vomiting. Denies sore throat, cough, shortness of breath. No chest pain. Does have some upper abdominal discomfort after vomiting, that she attributes to muscular strain. She was not vaccinated for Covid. 02/08: No acute events overnight. Patient seen and examined bedside and resting comfortably. Continues to complain of nausea not able to tolerate any diet at this time. Saturating 98% on room air. Patient's chart, labs, images were reviewed and discussed with RN 02/09: Afebrile, currently breathing on room air. Still with complaints of nausea and vomiting x3 today. States that she has history of similar symptoms that have been mildly improved with IV Dilaudid. 02/10: Patient febrile today with T-max 102.2 F. She still admits to nausea, denies any further vomiting. We will continue to provide supportive care and monitor for any recurrent fevers overnight. Patient continues to improve may discharge tomorrow to continue self-isolation. 02/11: Febrile overnight, T-max 102.3 F. She did become hypoxic overnight, cu rrently breathing on 4 L nasal cannula. Also admits to associated vomiting or diarrhea overnight. Discussed with RN, will initiate remdesivir and closely monitor LFTs. IV Decadron, and prophylactic antibiotics. 02/12: Low-grade fever overnight, T-max 99.7. Currently breathing on room air. Will discontinue remdesivir, steroids, and antibiotics; will observe overnight. Still with complaints of vomiting x1 and diarrhea. We will continue to provide supportive care and hope to discharge in the next day or so. 02/13: Afebrile. Still complains of intermittent diarrhea. At the time of my evaluation she was breathing on 6 L nasal cannula; this is somewhat misleading as patient states that she did not feel short of breath but was placed on 6 L by nursing staff overnight. 02/14: Afebrile, currently breathing on 8 L nasal cannula. There has been some misleading documentation, chart oxygen this patient is requiring. Discussed with RN, will resume remdesivir to complete total of 5 days. Continue to monitor LFTs. Will add steroids, Rocephin, and azithromycin. 02/15: Afebrile. Became much more hypoxic overnight, requiring BiPAP. At the time of my evaluation she is still breathing on BiPAP. Consultation was placed to pulmonology. Had discussion with Dr. Myrick about initiating Tocilizumab 02/16: No acute events overnight. Patient becoming more hypoxic saturating 94% and requiring BiPAP. Patient will be transferred to the ICU at this time. For worsening clinical status. Discussed with pulmonary. Patient's chart, labs, images were reviewed and discussed with RN 02/17: Transferred to ICU yesterday afternoon. Seen and examined at bedside she remains on 100% FiO2 on BiPAP. Respirations do appear somewhat labored. Suspect intubation may be impending. We will closely monitor. Increase lisinopril to 20 today. 02/18: Patient required intubation yesterday afternoon. Saw and examined this morning. She is intubated and sedated. Increase insulin today. Covid protocol ordered. Wean as tolerated. Plan of care discussed with bedside nurse. 02/19: Bedside. She remains intubated and sedated. Continue Covid protocol. Wean oxygen sedation as tolerated. Pulmonary following. Plan of care discussed with bedside RN. 02/20: Patient seen and examined at bedside. She remains intubated and sedated. No major clinical changes. Continue current treatment. Pulmonary following. Plan of care discussed with bedside RN. 02/21: Patient seen and examined at bedside. Remains intubated and sedated date and admission clinical changes. Increase free water flushes today due to hypernatremia. Plan of care discussed with bedside nurse. 02/22: Patient seen and examined at bedside. O2 requirement actually improving, although remains intubated. Possible SBT in the coming days. Hypernatremia improving. Plan of care discussed bedside RN. 02/23: Patient remains in ICU on ventilator with FiO2 100%, PEEP 7. Repeat chest x-ray yesterday showed diffuse bilateral pulmonary opacities with no interval improvement. Will discontinue Rocephin and initiate Zosyn. We will continue IV steroids for a full 10-day course 02/24: Afebrile. On vent with FiO2 40%, PEEP 6. Her Coreg has been held due to persistent bradycardia. No documented history of systolic heart failure or previous echocardiogram. Will need to obtain echocardiogram prior to discharge. Continue IV steroids and antibiotics. 02/25: Afebrile. Remains ventilated with FiO2 45%, PEEP 6. Chest x-ray today showed slight improvement of the pulmonary infiltrates, no pneumothorax. Completed 10-day course of IV Decadron. Will initiate slow Solu-Medrol taper. Continue IV Zosyn. Continue supportive care. 02/26: Afebrile. On vent with FiO2 45%, PEEP 6. Completed 10 days of IV Decadron. Will continue IV Zosyn. Continue supportive care. Critical care time 30 minutes spent reviewing charts, reviewing imaging, reviewing labs, discussion with RN. 02/27: Afebrile. On vent with FiO2 45%, PEEP 6. Completed 10 days of steroids and completed remdesivir. Continue with IV Zosyn. CPAP trial yesterday. Continue NG tube and supportive care. 02/28:. Patient remains on vent with FiO2 40%, PEEP 5. Afebrile. Completed steroids and remdesivir. Some noted hypoglycemia overnight, will de-escalate basal insulin. Continue IV Zosyn. Ventilator management per pulmonology. Continue NG tube and supportive care. 03/01: On vent with FiO2 40%, PEEP 5. Afebrile. Completed steroids and remdesivir. Blood glucose well controlled. Continue empiric antibiotics with Zosyn. Ventilator management per pulmonology. Continue NG tube and supportive care. 03/02: No acute events overnight. Patient hypotensive the morning due to oversedation. Will wean off sedation and keep antihypertensive medications on board. Currently saturating 100% on vent settings of 18/450/40/5. Will attempt spontaneous breathing trial today to see how patient does. 03/03: No acute events overnight. Patient saturating 98% on vent settings of 18/450/40/5. Will defer spontaneous breathing trials to pulmonary at this time. Patient's chart, labs, images were reviewed and discussed with RN 03/04: No acute events overnight. Patient saturating 9 9% on vent settings of 18/450/30/5. Patient currently is unable to tolerate weaning. Per pulmonary. Patient's chart, labs, images were reviewed and discussed with RN 03/05: No acute events overnight. Patient is saturating 97% on vent settings of 18/450/55/5. Her FiO2 needs to be increased due to abnormal ABG with 7.3 //24. Patient's chart, labs, images were reviewed and discussed with RN 03/06: No acute events overnight. Patient saturating 94% on vent settings of 18/450/55/5. Chest x-ray showing increase in pulmonary infiltrates. Wound care is consulted for decubitus ulcer patient's chart, labs, images were reviewed and discussed with RN 03/07: No acute events overnight. Patient saturating 94% on vent settings of 20/450/70/8. Patient now heading into renal failure with her creatinine bumped up from 1.5-4.2. Decreased urine output. Plan for hemodialysis today and temporary catheter placement and nephrology is consulted. 03/08: No acute events overnight. Patient did have a nausea vomiting episode and tube feeds were held. KUB repeat shows NG tube still in the stomach. Will resume tube feeds at trickle and advance to goal today. Will start hemodialysis soon. 03/09: Seen on vent 20/450/60%/8. ABG 7.2 WBC 11.4, Hb 7.4, platelets 188, NA 131, K4.9, BUN 48, CR 51, glucose 199, phosphorus 7.9, mag 2.2, AST 265 ALT 219, albumin 1.1. Chest radiograph appears unchanged from prior. Dialysis x1 today 03/10: Afebrile. Seen on vent, 20/450/60/7 with ABG 7.3 . Tolerated dialysis well on 03/09. LFTs similar. 03/11: Afebrile. Seen on vent, sedated. Still requiring Levophed for BP support. WBC 16.7, Hb 8.1, NA 130, ABG 7.3 on 55% FiO2 PEEP 6. On Zosyn and Zyvox Diflucan. Dialysis today 03/12: Afebrile. Still requiring Levophed for BP support sedated with Versed febrile Precedex. WBC 16.1, Hb 8.5, platelets 185, NA 133. Trach plan tentatively 03/17. O2 saturations 93% on 50% FiO2 PEEP 6. ABG 7.38/35/79 On Zosyn and Zyvox Diflucan. 03/13: Afebrile. Still on Levophed for BP support lightly sedated. 7.31/61 on 45% FiO2. Plan for dialysis today. On Zosyn and Zyvox Diflucan. More swollen today. 03/14: Afebrile. Weaning down off Levophed. WBC 14.9 NA 132. O2 saturations 92% on 45% FiO2 PEEP 5. Afebrile. O2 saturations 91% on FiO2 45% PEEP 6. Continued on Zosyn and Zyvox Diflucan. Tentative trach planned 03/17/2021 CC time 31 minutes 03/16/21: Patient seen and examined in ICU. Periorbital as well as upper and lower extremity edema noted. OG feed running at 30cc/hr. Still on vent on pressure control with a rate of 24 with 45% FiO2. Patient has rectal bag. Currently she has 98% O2 sat. Currently sedated with Dexmedetomidine, Propofol, Versed, and Fentanyl. Discussed with RN. Chart reviewed. 03/17/21: Patient was seen and examined in the ICU today. Periorbital edema as well as abdominal and mons pubis edema was noted. Patient still on vent on pressure control with Fi02 of 45% plus 6 PEEP. Patient had rectal bag. Currently sedated on Dexmedetomidine, Propofol, Versed, and Fentanyl. Discussed with RN. Chart reviewed. 03/18/21: Patient seen and examined in ICU. On vent via trach that was placed yesterday. Vent settings are Pressure Control of 40 with FiO2 of 45% and 6 PEEP. Trach clean and dry. Orbital swelling still present. Pupils are sluggish. Patient on TPN running at 30cc/hr. Kern to bedside and rectal bag in place. Current O2 sat at 94%. Sedated on Dexmedetomidine, Propofol, Versed, and Fentanyl. Discussed with RN. Chart reviewed. 03/19/21: Patient was seen and examined in the ICU today. Currently on vent via trach on pressure control of 42, rate of 24, FiO2 of 45%, and 6 PEEP. O2 sat is at 97% while patient is being examined. Trach is clean and dry. PICC line is in place on right arm. Periorbital swelling has decreased slightly since examined yesterday. Patient is sedated on Dexmedetomidine, Propofol, Versed, and Fentanyl. Discussed with RN. Chart reviewed. 03/20/21: Patient seen and examined in the ICU. Periorbital edema is slightly decreased since yesterday. O2 sat while being examined was 93%. NG tube in place and running at 30cc/hr. Patient on vent via trach on pressure control of 40 with FiO2 of 45 and rate of 24. Sedated on Dexmedetomidine, Propofol, Versed, and Fentanyl. PICC line in place. Kern to bedside. Rectal bag present. Discussed with RN. Chart reviewed. 03/21/21: Patient was seen and examined in the ICU today. She was semi-sedated.. She was on Dexmedetomidine and Fentanyl. We are holding the Propofol. Her eyes were periodically open but she was not making meaningful eye contact or tracking. On vent via trach with pressure control of 40 and FiO2 at 45. Rate was 24. PEEP was 5. Trach was clean and dry. While being examined, her O2 sat was 94%. Rectal bag and Kern to bedside in place. NG tube in place and feeding at 30cc/hr. IV fluids still running. Levophed has been stopped. Discussed with RN. Chart reviewed. 03/22/21: Patient was seen and examined in the ICU. She was semi-sedated on Propofol and Dexmedetomidine. Her eyes were open but she did not make meaningful eye contact. Her blood pressure was elevated (198/102) while being examined and she had just been given hydralazine to lower it. There are plans to place a PEG tube tomorrow. Currently on vent via trach on pressure control of 40 with FiO2 of 45%, 5 PEEP, and a rate of 24. Current O2 sat is 98%. She is feeding through an NG tube at 30cc/hr. Rectal bag and Kern to bedside present. SCDs on patient for DVT prophylaxis. She did not do her daily dialysis today but the plan is to start back on that tomorrow. Discussed with RN. Chart reviewed. 03/23/2021: Patient remains in ICU on ventilator. FiO2 40%, PEEP 5. Trach cultures positive for [place] albicans and acinebacter ursungi. We will continue treatment with IV antibiotics and micafungin, per ID. HD per nephrology. Plans for PEG tube placement today. 30 minutes critical care time was spent reviewing charts, reviewing labs, reviewing imaging, discussion with RN. 03/24/2021: Afebrile. On vent with FiO2 45%, PEEP 5. Had attempted PEG placement per GI yesterday, but unable to locate safe path for PEG; will consider surgical opinion. Once PEG is in place she should be stable for LTAC transfer when accepted. Continue antibiotics, per ID. 30 minutes critical care time was spent reviewing charts, reviewing labs, reviewing imaging, discussion with RN. 03/25/2021: Febrile overnight with T-max 101.5 F. On vent with FiO2 45%, PEEP 5. Surgery has been consulted with tentative plans for laparoscopic versus open gastrostomy placement tomorrow. Trach cultures positive for [place] albicans and now acinebacter ursungi; will continue antibiotic management, per ID. Hemodialysis, per nephrology. Patient needing LTAC placement, but currently without benefits. plant maintenance worker following for discharge planning. Critical care time 30 minutes spent reviewing charts, reviewing labs, reviewing imaging, discussion with RN. 03/26/2021: Febrile today with T-max 100.5 F. Awake on vent with FiO2 45%, PEEP 5. When I ask if she remembers any she nods. G-tube placement scheduled for tomorrow, per general surgery. Chest x-ray today showed slight interval increase in diffuse infiltrate. Continue antibiotic management, per ID. Hemodialysis per nephrology. Reportedly did not tolerate CPAP trial this morning. plant maintenance worker following for LTAC placement. Critical care time 30 minutes spent reviewing charts, reviewing labs, reviewing imaging, discussion with RN. 03/27/2021: On vent with FiO2 45%, PEEP 5. Afebrile today. Continue treatment of acute renal failure requiring HD, per nephrology. Monitor kidney function for recovery. G-tube placement scheduled for today, per general surgery. Likely LTAC placement soon, but this is been a difficult as she is self-pay without benefits; psychologist social following. Critical care time 30 minutes spent reviewing charts, reviewing labs, reviewing imaging, discussion with RN. 03/28/2021: Afebrile. On vent with FiO2 40%, PEEP 5. Had laparoscopic gastrostomy tube placed yesterday, per general surgery. Continue treatment of acute renal failure requiring HD, per nephrology. Continue IV antibiotics, per ID. Likely LTAC placement soon, but this is been a difficult as she is self-pay without benefits; psychologist social following. Critical care time 30 minutes spent reviewing charts, reviewing labs, reviewing imaging, discussion with RN. 03/29/2021: Afebrile. On vent with FiO2 45%, PEEP 5. S/P laparoscopic gastrostomy tube; tube feeds running. HD, per nephrology. Continue meropenem, per ID. Anticipate LTAC placement soon now that PEG has being placed; psychologist social helping in these regards. Critical care time 30 minutes spent reviewing charts, reviewing labs, reviewing imaging, discussion with RN. 03/30 No major events or clinical changes overnight. Patient evaluated at bedside this morning on trach and G-tube. Tolerating these well. Has been working on insurance for patient for placement as she will need long-term care. Guarded prognosis. Plan of care discussed with bedside nurse. 03/31 No major clinical changes. Remains trached. Sedated. Continue current plan. 04/01 No changes. Patient resting in bed when evaluated sedated. is supposed to be working on insurance for placement for the patient. Otherwise no changes. 04/02 Patient febrile overnight, daptomycin added this morning per infectious disease. Otherwise no major clinical changes. Awaiting insurance. Infectious disease, pulmonary and renal following. Plan of care discussed with bedside RN. 04/03 Patient undergoing dialysis today. Evaluated at bedside this morning. otherwise continue current plan. supposed working on insurance. 04/04 No major overnight changes. Continue current plan. 04/05 Patient notably more movement this morning eyes open resting in bed otherwise no major changes. Continue current plan. Insurance pending. 04/06 Patient notably more movement this morning eyes open resting in bed current plan. Insurance pending. Continue daptomycin, renal dosing April 02 F/U Blood culture UA urine culture C. diff PCR negative 32 min cc time 04/07 Patient notably more movement this morning eyes open resting in bed current plan. Insurance pending. Continue daptomycin, renal dosing April 02 F/U Blood culture UA urine culture C. diff PCR negative Abnormal chest x-ray consistent with COVID-19 viral pneumonia. Diabetic ketoacidosis--resolved obesity contributing to hypoxia as well. BOB . hemodialysis started 03/07 DVT GI prophylaxis Nutritional support 34 min cc time 04/08 Patient notably more movement this morning eyes open resting in bed current plan. Insurance pending. Continue daptomycin, renal dosing April 02 F/U Blood culture UA urine culture C. diff PCR negative s/p lap G-tube 03/27 Abnormal chest x-ray consistent with COVID-19 viral pneumonia. Diabetic ketoacidosis--resolved obesity contributing to hypoxia as well. BOB . hemodialysis started 03/07 DVT GI prophylaxis Nutritional support Right PICC line February 14 out; left PICC line 04/07/2021 Right IJ HDC clean March 07 32 min cc time 04/09 non Oliguric for past 11/2 -2 weeks , good response to IV NS bolus .requiring di alysis., currently on MWF schedule, tolerating trach shield well.using her speaking valve./ resting in bed current / states she feels better Start iv Zyvox Cont Meropenem DC daptomycin post PICC line exchange aspiration precautions C. diff PCR negative F/U Blood culture UA urine culture s/p lap G-tube 03/27 Abnormal chest x-ray consistent with COVID-19 viral pneumonia. Diabetic ketoacidosis--resolved obesity contributing to hypoxia as well. BOB . hemodialysis started 03/07 DVT GI prophylaxis Nutritional support Right PICC line February 14 out; left PICC line 04/07/2021 Right IJ HDC clean March 07 34 min cc time Vitals/I&O Vitals/I&O: Vital Signs Date Time Temp Pulse Resp B/P (MAP) Pulse Ox O2 Delivery O2 Flow Rate FiO2 04/17/21 11:00 98.9 114 18 182/84 (116) 100 Room Air 98.9 04/17/21 07:45 8.0 I & O 04/16/21 04/16/21 04/17/21 15:00 23:00 07:00 Intake Total 100 ml 0 ml Output Total 450 ml 750 ml Balance -350 ml -750 ml Physical Exam Physical Exam: GENERAL: Awake, pleasantly confused HEENT: Normocephalic, atraumatic. Anicteric. Slight bilateral periorbital edema. Latter improving Neck right IJ HDC clean Trach + capped LUNGS: Rhonchi. HEART: S1, S2. No murmurs. ABDOMEN: Obese, soft. Bowel sounds present. Nontender, nondistended. PEG tube pulled out by patient GENITOURINARY: Kern and fecal tube in place. EXTREMITIES: Edema present no cyanosis. CENTRAL NERVOUS SYSTEM: Intubated. PSYCHIATRIC: Confused Derm has pressure wounds wound pictures noted in chart. Generalized rash, Right PICC line removed; left PICC line 04/07/2021 Right IJ HDC clean March 07 General: Alert, Oriented X3, Cooperative Heart: Regular rate, Normal S1, Normal S2 Lungs: Crackles Abdomen: Soft, Other (ND) Extremities: No cyanosis, Other (ANASARCA) Skin: No rashes, No significant lesion Labs Labs: Laboratory Tests Test 04/16/21 12:17 04/16/21 16:57 04/16/21 21:00 04/16/21 23:51 Glucose (Fingerstick) 265 mg/dL (70-99) 208 mg/dL (70-99) 262 mg/dL (70-99) 215 mg/dL (70-99) Test 04/17/21 05:26 04/17/21 05:30 Glucose (Fingerstick) 167 mg/dL (70-99) White Blood Count 11.9 x10^3/uL (4.0-11.0) Red Blood Count 3.67 x10^6/uL (3.50-5.40) Hemoglobin 10.3 g/dL (12.0-15.5) Hematocrit 31.3 % (36.0-47.0) Mean Corpuscular Volume 85 fL (79-100) Mean Corpuscular Hemoglobin 28 pg (25-35) Mean Corpuscular Hemoglobin Concent 33 g/dL (31-37) Red Cell Distribution Width 14.4 % (11.5-14.5) Platelet Count 279 x10^3/uL (140-400) Neutrophils (%) (Auto) 67 % (31-73) Lymphocytes (%) (Auto) 20 % (24-48) Monocytes (%) (Auto) 10 % (0-9) Eosinophils (%) (Auto) 2 % (0-3) Basophils (%) (Auto) 1 % (0-3) Neutrophils # (Auto) 7.9 x10^3/uL (1.8-7.7) Lymphocytes # (Auto) 2.3 x10^3/uL (1.0-4.8) Monocytes # (Auto) 1.2 x10^3/uL (0.0-1.1) Eosinophils # (Auto) 0.3 x10^3/uL (0.0-0.7) Basophils # (Auto) 0.2 x10^3/uL (0.0-0.2) Sodium Level 142 mmol/L (136-145) Potassium Level 3.2 mmol/L (3.5-5.1) Chloride Level 102 mmol/L (98-107) Carbon Dioxide Level 28 mmol/L (21-32) Anion Gap 12 (6-14) Blood Urea Nitrogen 39 mg/dL (7-20) Creatinine 1.8 mg/dL (0.6-1.0) Estimated GFR (Cockcroft-Gault) 30.4 Glucose Level 192 mg/dL (70-99) Calcium Level 9.3 mg/dL (8.5-10.1) Magnesium Level 1.6 mg/dL (1.8-2.4) Assessment and Plan Assessmemt and Plan Problems Medical Problems: (1) Ketoacidosis Status: Acute Comment Review of Relevant I have reviewed the following items mazin (where applicable) has been applied. Medications: Current Medications Medications (Trade) Dose Ordered Sig/Pepe Route PRN Reason Start Time Stop Time Status Last Admin Dose Admin Barium Sulfate (Varibar Thin Liquid Apple) 148 gm 1X ONCE PO 04/17/21 10:00 04/17/21 10:02 DC 04/17/21 11:30 Justifications for Admission Other Justification LEO DELGADO MD Apr 17, 2021 12:06
[2021-04-17 14:55] VITALS: BP 167/92
[2021-04-17] MEDS: POTASSIUM CHLORIDE 20MEQ 100 ML IV SCH ×2 (17:33→21:55)
[2021-04-17] MEDS ORDERED: MAGNESIUM SULFATE 2GM 50 ML IV ONE (18:00)
--- NOTE | 2021-04-17 19:00 | NUR ---
Patient thinks tube feeding is making her sick to her stomach. Currently holding tube feeding right now. Will continue to monitor.
[2021-04-17 19:15] VITALS: BP 178/91
[2021-04-17] MEDS: ATORVASTATIN CALCIUM 40 MG TABLET. PO SCH (21:48)
[2021-04-17] MEDS: PROCHLORPERAZINE 10 MG/2 ML VIAL. IV PRN (21:48)
[2021-04-17 23:00] VITALS: BP 113/58
[2021-04-18] MEDS: INSULIN GLARGINE SYRINGE. SQ SCH ×2 (00:44→10:48)
[2021-04-18] MEDS: INSULIN LISPRO 300 UNITS/3 ML VIAL. SQ SCH ×4 (00:46→18:38)
[2021-04-18 03:00] VITALS: BP 136/63
[2021-04-18] MEDS: IPRATRPIUM/ALBUTEROL 0.5/2.5MG 3 ML NEBU. NEB SCH ×4 (06:07→21:24)
[2021-04-18] MEDS: HEPARIN for SUB-Q USE 5,000 UNIT/ML VIAL. SQ SCH ×2 (06:52→13:22)
[2021-04-18 07:09] LABS: CALCIUM 8.7 mg/dL (8.5-10.1); CREATININE 1.9 mg/dL (0.6-1.0); GFR 28.6; POTASSIUM 3.5 mmol/L (3.5-5.1)
[2021-04-18 07:45] VITALS: BP 174/77
--- NOTE | 2021-04-18 08:04 | PDOC ---
Infectious Disease Note Subjective: Subjective Patient without complaints Vital Signs: Vital Signs Vital Signs Date Time Temp Pulse Resp B/P (MAP) Pulse Ox O2 Delivery O2 Flow Rate FiO2 04/18/21 06:08 100 Tracheal Collar 8.0 04/18/21 03:00 98.7 105 20 136/63 (87) 98.7 Physical Exam: PHYSICAL EXAM GENERAL: Awake, pleasantly confused HEENT: Normocephalic, atraumatic. Anicteric. Slight bilateral periorbital edema. Latter improving Neck right IJ HDC clean Trach + capped LUNGS: Rhonchi. HEART: S1, S2. No murmurs. ABDOMEN: Obese, soft. Bowel sounds present. Nontender, nondistended. PEG tube pulled out by patient GENITOURINARY: Kern and fecal tube in place. EXTREMITIES: Edema present no cyanosis. CENTRAL NERVOUS SYSTEM: Intubated. PSYCHIATRIC: Confused Derm has pressure wounds wound pictures noted in chart. Generalized rash, Right PICC line removed; left PICC line 04/07/2021 Right IJ HDC clean March 07 Medications: Inpatient Meds: Medications reviewed. Labs: Lab Laboratory Tests Test 04/17/21 12:19 04/17/21 17:45 04/17/21 23:57 04/18/21 06:09 Glucose (Fingerstick) 293 mg/dL (70-99) 196 mg/dL (70-99) 256 mg/dL (70-99) 175 mg/dL (70-99) Test 04/18/21 06:30 Sodium Level 135 mmol/L (136-145) Potassium Level 3.5 mmol/L (3.5-5.1) Chloride Level 99 mmol/L (98-107) Carbon Dioxide Level 30 mmol/L (21-32) Anion Gap 6 (6-14) Blood Urea Nitrogen 30 mg/dL (7-20) Creatinine 1.9 mg/dL (0.6-1.0) Estimated GFR (Cockcroft-Gault) 28.6 Glucose Level 195 mg/dL (70-99) Calcium Level 8.7 mg/dL (8.5-10.1) Micro GRAM STAIN EVALUATION Final Final This specimen is of good quality and is acceptable for routine bacterial culture. Culture results to follow. NO ORGANISMS SEEN. SQUAMOUS EPI CELL:RARE PMN (WBCs):MODERATE Unless otherwise specified, Testing Performed by: [address] [id number] For Inquires, the Physician may contact the Microbiology department at [phone] RESPIRATORY CULTURE Final Final MODERATE GRAM NEGATIVE RODS on 03/18/21 at 1120 FINAL ID= [[email or web address] [id number].] ACINETOBACTER URSINGII. ANTIMICROBIAL SUSCEPTIBILITY Final Comment NEG SAGE 56 ACINETOBACTER URSINGII. ANTIBIOTIC RESULT INTERPRETATION AMPICILLIN/SULBACTAM <=4/2 S AMIKACIN <=16 S CEFTRIAXONE 2 S CEFTAZIDIME 16 I CEFOTAXIME 16 I CIPROFLOXACIN <=0.25 S CEFEPIME 4 S GENTAMICIN <=2 S LEVOFLOXACIN <=0.5 S RUN DATE: 03/19/21 [facility] *LIVE* PAGE 2 RUN TIME: 1120 Specimen Inquiry SPEC: [id number] PATIENT: ARIADNA BANKS [id number] (Continued) Procedure Result ------- ----- CONTINUED ON NEXT PAGE RUN DATE: 03/19/21 [facility] *LIVE* PAGE 3 RUN TIME: 1120 Specimen Inquiry SPEC: [id number] PATIENT: ARIADNA BANKS [id number] (Continued) Procedure Result ANTIMICROBIAL SUSCEPTIBILITY Final (continued) MINOCYCLINE <=4 S MEROPENEM <=1 S TRIMETHOPRIM/SULFAMETHOXAZOLE <=0.5/9.5 S TOBRAMYCIN <=2 S Unless otherwise specified, Testing Performed by: [address] [id number] For Inquires, the Physician may contact the Microbiology department at [phone] Culture negative Objective: Assessment: 1. Febrile illness. Resolved 2. COVID-19 infection present on date of admission, 02/06/2021. Status post remdesivir, dexamethasone. 3. Acute hypoxic respiratory failure, status post intubation. S/P Trach on 03/17 Trach cultures positive for Rock albicans and now acinebacter ursungi 4. Diabetes. 5. Diarrhea. 6. Hypertension. 7. Hyperlipidemia. 8. Anemia. 9. BOB on HD 10.UC rock albican, ua neg 11. Nausea and vomiting 12. Leukocytosis likely reactive as patient had nausea and vomiting has pulled out PEG tube Plan: Plan of Care Monitor off antibiotics Wound care as directed Continue supportive care. KAITLYNN CRAIG MD Apr 18, 2021 08:04
[2021-04-18] MEDS: DOCUSATE 100 MG/10 ML SOLUTION. PO SCH ×2 (09:00→21:00)
[2021-04-18] MEDS: FAMOTIDINE 20 MG/2 ML VIAL IVP SCH (10:33)
[2021-04-18] MEDS: MULTIVITAMINS,THERAPEUTIC 5 ML ORAL LIQUID. PEG SCH (10:33)
[2021-04-18] MEDS: NYSTATIN TOPICAL POWDER 15GM BOTTLE. TP SCH ×2 (10:50→21:00)
[2021-04-18 11:29] VITALS: BP 161/77
--- NOTE | 2021-04-18 11:54 | PDOC ---
[facility] PROGRESS NOTE Date of Service DOS: DATE: 04/18/21 TIME: 11:53 Chief Complaint Chief Complaint COVID-19 acute hypoxic respiratory failure DKA Hypotension Nausea Vomiting Combined metabolic and respiratory acidosis Acute electrolyte derangementhyponatremia, hypochloremia due to volume deplet ion Hyperglycemia BOB due to ATN, requiring dialysis Erythrocytosis Candiduria Sacral decubitus ulcer S/P Trach on (03/17/21) Trach cultures positive for [place] albicans and now acinebacter ursungi History of Present Illness History of Present Illness 04/18 Patient evaluated examined at bedside. She was on trach collar. Continue regular diet as tolerated. Monitoring blood pressure. Working towards discharge. 04/17 Patient evaluated and examined at bedside. She is pretty alert today. Underwent video swallow study earlier and cleared for regular diet with thin liquids. Definite improvement for her. On trach collar when I saw her. Continue current treatments. Watch blood pressure. If she well keep up a consistent amount of p.o. intake may be able to stop tube feeds and PEG tube removal. But this is far down the line. 04/16 Patient seen examined at bedside. Transfer out of the ICU yesterday. Speech therapy to evaluate this morning. Improved notably since I last saw her in the ICU. Continue PEG feeds. Blood pressure treatment. Plan of care discussed with bedside RN. 04/15/2021 Patient seen and examined in the ICU She has clean dry intact tracheostomy with trach shield PEG feeds running at 30 cc an hour She really wants to drink water I told her that we are awaiting speech therapy to reevaluate her Chart reviewed Discussed with RN 04/14/2021 Patient seen and examined in the ICU She remains pleasantly confused Has a new PEG in place Discussed with physical therapy Discussed with RN Chart reviewed 04/13/2021 Patient seen and examined in the ICU She is pleasantly confused Sedated with Precedex and fentanyl I discussed with the speech therapist the patient has no laryngeal movement Now she is n.p.o. again Going for new PEG placement in interventional radiology hopefully later today Her trach is clean Chart reviewed Discussed with RN 04/12/2021 Patient seen and examined in the ICU Her is present today and seems to be good support for her Chart reviewed Discussed with RN Still sedated with Precedex and fentanyl but awake 04/11/2021 Patient seen and examined in the ICU She remains quite confused currently sedated Chart reviewed Discussed with RN Had some nausea vomiting last night Pulled out her PEG yesterday Currently on fentanyl and Precedex IV Zyvox hanging 04/10/2021 Patient seen and examined in the ICU She is pleasantly confused Has a trach shield in place Discussed with RN Chart reviewed We are adding in some as needed Ativan and scheduled Prozac Ms Borges is a 46 year old female who presented with nausea/vomiting since 7 AM 02/06/2021 in the morning. Patient stated that her recently tested positive for Covid. She states that he "coughed in my face because he thought it was funny." She reports subjective fevers and chills and nausea/vomiting. Denies sore throat, cough, shortness of breath. No chest pain. Does have some upper abdominal discomfort after vomiting, that she attributes to muscular strain. She was not vaccinated for Covid. 02/08: No acute events overnight. Patient seen and examined bedside and resting comfortably. Continues to complain of nausea not able to tolerate any diet at this time. Saturating 98% on room air. Patient's chart, labs, images were reviewed and discussed with RN 02/09: Afebrile, currently breathing on room air. Still with complaints of nausea and vomiting x3 today. States that she has history of similar symptoms that have been mildly improved with IV Dilaudid. 02/10: Patient febrile today with T-max 102.2 F. She still admits to nausea, denies any further vomiting. We will continue to provide supportive care and monitor for any recurrent fevers overnight. Patient continues to improve may discharge tomorrow to continue self-isolation. 02/11: Febrile overnight, T-max 102.3 F. She did become hypoxic overnight, currently breathing on 4 L nasal cannula. Also admits to associated vomiting or diarrhea overnight. Discussed with RN, will initiate remdesivir and closely monitor LFTs. IV Decadron, and prophylactic antibiotics. 02/12: Low-grade fever overnight, T-max 99.7. Currently breathing on room air. Will discontinue remdesivir, steroids, and antibiotics; will observe overnight. Still with complaints of vomiting x1 and diarrhea. We will continue to provide supportive care and hope to discharge in the next day or so. 02/13: Afebrile. Still complains of intermittent diarrhea. At the time of my evaluation she was breathing on 6 L nasal cannula; this is somewhat misleading as patient states that she did not feel short of breath but was placed on 6 L by nursing staff overnight. 02/14: Afebrile, currently breathing on 8 L nasal cannula. There has been some misleading documentation, chart oxygen this patient is requiring. Discussed with RN, will resume remdesivir to complete total of 5 days. Continue to monitor LFTs. Will add steroids, Rocephin, and azithromycin. 02/15: Afebrile. Became much more hypoxic overnight, requiring BiPAP. At the time of my evaluation she is still breathing on BiPAP. Consultation was placed to pulmonology. Had discussion with Dr. Myrick about initiating Tocilizumab 02/16: No acute events overnight. Patient becoming more hypoxic saturating 94% and requiring BiPAP. Patient will be transferred to the ICU at this time. For worsening clinical status. Discussed with pulmonary. Patient's chart, labs, images were reviewed and discussed with RN 02/17: Transferred to ICU yesterday afternoon. Seen and examined at bedside she remains on 100% FiO2 on BiPAP. Respirations do appear somewhat labored. Suspect intubation may be impending. We will closely monitor. Increase lisinopril to 20 today. 02/18: Patient required intubation yesterday afternoon. Saw and examined this morning. She is intubated and sedated. Increase insulin today. Covid protocol ordered. Wean as tolerated. Plan of care discussed with bedside nurse. 02/19: Bedside. She remains intubated and sedated. Continue Covid protocol. Wean oxygen sedation as tolerated. Pulmonary following. Plan of care discussed with bedside RN. 02/20: Patient seen and examined at bedside. She remains intubated and sedated. No major clinical changes. Continue current treatment. Pulmonary following. Plan of care discussed with bedside RN. 02/21: Patient seen and examined at bedside. Remains intubated and sedated date and admission clinical changes. Increase free water flushes today due to hypernatremia. Plan of care discussed with bedside nurse. 02/22: Patient seen and examined at bedside. O2 requirement actually improving, although remains intubated. Possible SBT in the coming days. Hypernatremia improving. Plan of care discussed bedside RN. 02/23: Patient remains in ICU on ventilator with FiO2 100%, PEEP 7. Repeat chest x-ray yesterday showed diffuse bilateral pulmonary opacities with no interval improvement. Will discontinue Rocephin and initiate Zosyn. We will continue IV steroids for a full 10-day course 02/24: Afebrile. On vent with FiO2 40%, PEEP 6. Her Coreg has been held due to persistent bradycardia. No documented history of systolic heart failure or pre vious echocardiogram. Will need to obtain echocardiogram prior to discharge. Continue IV steroids and antibiotics. 02/25: Afebrile. Remains ventilated with FiO2 45%, PEEP 6. Chest x-ray today showed slight improvement of the pulmonary infiltrates, no pneumothorax. Completed 10-day course of IV Decadron. Will initiate slow Solu-Medrol taper. Continue IV Zosyn. Continue supportive care. 02/26: Afebrile. On vent with FiO2 45%, PEEP 6. Completed 10 days of IV Decadron. Will continue IV Zosyn. Continue supportive care. Critical care time 30 minutes spent reviewing charts, reviewing imaging, reviewing labs, discussion with RN. 02/27: Afebrile. On vent with FiO2 45%, PEEP 6. Completed 10 days of steroids and completed remdesivir. Continue with IV Zosyn. CPAP trial yesterday. Continue NG tube and supportive care. 02/28:. Patient remains on vent with FiO2 40%, PEEP 5. Afebrile. Completed steroids and remdesivir. Some noted hypoglycemia overnight, will de-escalate basal insulin. Continue IV Zosyn. Ventilator management per pulmonology. Continue NG tube and supportive care. 03/01: On vent with FiO2 40%, PEEP 5. Afebrile. Completed steroids and remdesivir. Blood glucose well controlled. Continue empiric antibiotics with Zosyn. Ventilator management per pulmonology. Continue NG tube and supportive care. 03/02: No acute events overnight. Patient hypotensive the morning due to o versedation. Will wean off sedation and keep antihypertensive medications on board. Currently saturating 100% on vent settings of 18/450/40/5. Will attempt spontaneous breathing trial today to see how patient does. 03/03: No acute events overnight. Patient saturating 98% on vent settings of 18/450/40/5. Will defer spontaneous breathing trials to pulmonary at this time. Patient's chart, labs, images were reviewed and discussed with RN 03/04: No acute events overnight. Patient saturating 9 9% on vent settings of 18/450/30/5. Patient currently is unable to tolerate weaning. Per pulmonary. Patient's chart, labs, images were reviewed and discussed with RN 03/05: No acute events overnight. Patient is saturating 97% on vent settings of 18/450/55/5. Her FiO2 needs to be increased due to abnormal ABG with 7.3 /58/24. Patient's chart, labs, images were reviewed and discussed with RN 03/06: No acute events overnight. Patient saturating 94% on vent settings of 18/450/55/5. Chest x-ray showing increase in pulmonary infiltrates. Wound care is consulted for decubitus ulcer patient's chart, labs, images were reviewed and discussed with RN 03/07: No acute events overnight. Patient saturating 94% on vent settings of 20/450/70/8. Patient now heading into renal failure with her creatinine bumped up from 1.5-4.2. Decreased urine output. Plan for hemodialysis today and temporary catheter placement and nephrology is consulted. 03/08: No acute events overnight. Patient did have a nausea vomiting episode and tube feeds were held. KUB repeat shows NG tube still in the stomach. Will resume tube feeds at trickle and advance to goal today. Will start hemodialysis soon. 03/09: Seen on vent 20/450/60%/8. ABG 7.2 WBC 11.4, Hb 7.4, platelets 188, NA 131, K4.9, BUN 48, CR 51, glucose 199, phosphorus 7.9, mag 2.2, AST 265 ALT 219, albumin 1.1. Chest radiograph appears unchanged from prior. Dialysis x1 today 03/10: Afebrile. Seen on vent, 20/450/60/7 with ABG 7.3 . Tolerated dialysis well on 03/09. LFTs similar. 03/11: Afebrile. Seen on vent, sedated. Still requiring Levophed for BP support. WBC 16.7, Hb 8.1, NA 130, ABG 7.3 on 55% FiO2 PEEP 6. On Zosyn and Zyvox Diflucan. Dialysis today 03/12: Afebrile. Still requiring Levophed for BP support sedated with Versed febrile Precedex. WBC 16.1, Hb 8.5, platelets 185, NA 133. Trach plan tentatively 03/17. O2 saturations 93% on 50% FiO2 PEEP 6. ABG 7.38/35/79 On Zosyn and Zyvox Diflucan. 03/13: Afebrile. Still on Levophed for BP support lightly sedated. 7./ on 45% FiO2. Plan for dialysis today. On Zosyn and Zyvox Diflucan. More swollen today. 03/14: Afebrile. Weaning down off Levophed. WBC 14.9 NA 132. O2 saturations 92% on 45% FiO2 PEEP 5. Afebrile. O2 saturations 91% on FiO2 45% PEEP 6. Continued on Zosyn and Zyvox Diflucan. Tentative trach planned 03/17/2021 CC time 31 minutes 03/16/21: Patient seen and examined in ICU. Periorbital as well as upper and lower extremity edema noted. OG feed running at 30cc/hr. Still on vent on pressure control with a rate of 24 with 45% FiO2. Patient has rectal bag. Currently she has 98% O2 sat. Currently sedated with Dexmedetomidine, Propofol, Versed, and Fentanyl. Discussed with RN. Chart reviewed. 03/17/21: Patient was seen and examined in the ICU today. Periorbital edema as well as abdominal and mons pubis edema was noted. Patient still on vent on pressure control with Fi02 of 45% plus 6 PEEP. Patient had rectal bag. Currently sedated on Dexmedetomidine, Propofol, Versed, and Fentanyl. Discussed with RN. Ana sandra reviewed. 03/18/21: Patient seen and examined in ICU. On vent via trach that was placed yesterday. Vent settings are Pressure Control of 40 with FiO2 of 45% and 6 PEEP. Trach clean and dry. Orbital swelling still present. Pupils are sluggish. Patient on TPN running at 30cc/hr. Kern to bedside and rectal bag in place. Current O2 sat at 94%. Sedated on Dexmedetomidine, Propofol, Versed, and Fentanyl. Discussed with RN. Chart reviewed. 03/19/21: Patient was seen and examined in the ICU today. Currently on vent via trach on pressure control of 42, rate of 24, FiO2 of 45%, and 6 PEEP. O2 sat is at 97% while patient is being examined. Trach is clean and dry. PICC line is in place on right arm. Periorbital swelling has decreased slightly since examined yesterday. Patient is sedated on Dexmedetomidine, Propofol, Versed, and Fentanyl. Discussed with RN. Chart reviewed. 03/20/21: Patient seen and examined in the ICU. Periorbital edema is slightly decreased since yesterday. O2 sat while being examined was 93%. NG tube in place and running at 30cc/hr. Patient on vent via trach on pressure control of 40 with FiO2 of 45 and rate of 24. Sedated on Dexmedetomidine, Propofol, Versed, and Fentanyl. PICC line in place. Kern to bedside. Rectal bag present. Discussed with RN. Chart reviewed. 03/21/21: Patient was seen and examined in the ICU today. She was semi-sedated.. She was on Dexmedetomidine and Fentanyl. We are holding the Propofol. Her eyes were periodically open but she was not making meaningful eye contact or tr acking. On vent via trach with pressure control of 40 and FiO2 at 45. Rate was 24. PEEP was 5. Trach was clean and dry. While being examined, her O2 sat was 94%. Rectal bag and Kern to bedside in place. NG tube in place and feeding at 30cc/hr. IV fluids still running. Levophed has been stopped. Discussed with RN. Chart reviewed. 03/22/21: Patient was seen and examined in the ICU. She was semi-sedated on Propofol and Dexmedetomidine. Her eyes were open but she did not make meaningful eye contact. Her blood pressure was elevated (198/102) while being examined and she had just been given hydralazine to lower it. There are plans to place a PEG tube tomorrow. Currently on vent via trach on pressure control of 40 with FiO2 of 45%, 5 PEEP, and a rate of 24. Current O2 sat is 98%. She is feeding through an NG tube at 30cc/hr. Rectal bag and Kern to bedside present. SCDs on patient for DVT prophylaxis. She did not do her daily dialysis today but the plan is to start back on that tomorrow. Discussed with RN. Chart reviewed. 03/23/2021: Patient remains in ICU on ventilator. FiO2 40%, PEEP 5. Trach cultures positive for [place] albicans and acinebacter ursungi. We will continue treatment with IV antibiotics and micafungin, per ID. HD per nephrology. Plans for PEG tube placement today. 30 minutes critical care time was spent reviewing charts, reviewing labs, reviewing imaging, discussion with RN. 03/24/2021: Afebrile. On vent with FiO2 45%, PEEP 5. Had attempted PEG placement per GI yesterday, but unable to locate safe path for PEG; will consider surgical opinion. Once PEG is in place she should be stable for LTAC transfer when accepted. Continue antibiotics, per ID. 30 minutes critical care time was spent reviewing charts, reviewing labs, reviewing imaging, discussion with RN. 03/25/2021: Febrile overnight with T-max 101.5 F. On vent with FiO2 45%, PEEP 5. Surgery has been consulted with tentative plans for laparoscopic versus open gastrostomy placement tomorrow. Trach cultures positive for [place] albicans and now acinebacter ursungi; will continue antibiotic management, per ID. Hemodialysis, per nephrology. Patient needing LTAC placement, but currently without benefits. pharmaceutical worker following for discharge planning. Critical care time 30 minutes spent reviewing charts, reviewing labs, reviewing imaging, discussion with RN. 03/26/2021: Febrile today with T-max 100.5 F. Awake on vent with FiO2 45%, PEEP 5. When I ask if she remembers any she nods. G-tube placement scheduled for tomorrow, per general surgery. Chest x-ray today showed slight interval increase in diffuse infiltrate. Continue antibiotic management, per ID. Hemodialysis per nephrology. Reportedly did not tolerate CPAP trial this morning. pharmaceutical worker following for LTAC placement. Critical care time 30 minutes spent reviewing charts, reviewing labs, reviewing imaging, discussion with RN. 03/27/2021: On vent with FiO2 45%, PEEP 5. Afebrile today. Continue treatment of acute renal failure requiring HD, per nephrology. Monitor kidney function for recovery. G-tube placement scheduled for today, per general surgery. Likely LTAC placement soon, but this is been a difficult as she is self-pay without benefits; manager social responsibility following. Critical care time 30 minutes spent reviewing charts, reviewing labs, reviewing imaging, discussion with RN. 03/28/2021: Afebrile. On vent with FiO2 40%, PEEP 5. Had laparoscopic gastrostomy tube placed yesterday, per general surgery. Continue treatment of acute renal failure requiring HD, per nephrology. Continue IV antibiotics, per ID. Likely LTAC placement soon, but this is been a difficult as she is self-pay without benefits; manager social responsibility following. Critical care time 30 minutes spent reviewing charts, reviewing labs, reviewing imaging, discussion with RN. 03/29/2021: Afebrile. On vent with FiO2 45%, PEEP 5. S/P laparoscopic gastrostomy tube; tube feeds running. HD, per nephrology. Continue meropenem, per ID. Anticipate LTAC placement soon now that PEG has being placed; manager social responsibility helping in these regards. Critical care time 30 minutes spent reviewing charts, reviewing labs, reviewing imaging, discussion with RN. 03/30 No major events or clinical changes overnight. Patient evaluated at bedside this morning on trach and G-tube. Tolerating these well. Has been working on insurance for patient for placement as she will need long-term care. Guarded prognosis. Plan of care discussed with bedside nurse. 03/31 No major clinical changes. Remains trached. Sedated. Continue current plan. 04/01 No changes. Patient resting in bed when evaluated sedated. is supposed to be working on insurance for placement for the patient. Otherwise no changes. 04/02 Patient febrile overnight, daptomycin added this morning per infectious disease. Otherwise no major clinical changes. Awaiting insurance. Infectious disease, pulmonary and renal following. Plan of care discussed with bedside RN. 04/03 Patient undergoing dialysis today. Evaluated at bedside this morning. otherwise continue current plan. supposed working on insurance. 04/04 No major overnight changes. Continue current plan. 04/05 Patient notably more movement this morning eyes open resting in bed otherwise no major changes. Continue current plan. Insurance pending. 04/06 Patient notably more movement this morning eyes open resting in bed current plan. Insurance pending. Continue daptomycin, renal dosing April 02 F/U Blood culture UA urine culture C. diff PCR negative 32 min cc time 04/07 Patient notably more movement this morning eyes open resting in bed current plan. Insurance pending. Continue daptomycin, renal dosing April 02 F/U Blood culture UA urine culture C. diff PCR negative Abnormal chest x-ray consistent with COVID-19 viral pneumonia. Diabetic ketoacidosis--resolved obesity contributing to hypoxia as well. BOB . hemodialysis started 03/07 DVT GI prophylaxis Nutritional support 34 min cc time 04/08 Patient notably more movement this morning eyes open resting in bed current plan. Insurance pending. Continue daptomycin, renal dosing April 02 F/U Blood culture UA urine culture C. diff PCR negative s/p lap G-tube 03/27 Abnormal chest x-ray consistent with COVID-19 viral pneumonia. Diabetic ketoacidosis--resolved obesity contributing to hypoxia as well. BOB . hemodialysis started 03/07 DVT GI prophylaxis Nutritional support Right PICC line February 14 out; left PICC line 04/07/2021 Right IJ HDC clean March 07 32 min cc time 04/09 non Oliguric for past 11/2 -2 weeks , good response to IV NS bolus .requiring dialysis., currently on MWF schedule, tolerating trach shield well.using her speaking valve./ resting in bed current / states she feels better Start iv Zyvox Cont Meropenem DC daptomycin post PICC line exchange aspiration precautions C. diff PCR negative F/U Blood culture UA urine culture s/p lap G-tube 03/27 Abnormal chest x-ray consistent with COVID-19 viral pneumonia. Diabetic ketoacidosis--resolved obesity contributing to hypoxia as well. BOB . hemodialysis started 03/07 DVT GI prophylaxis Nutritional support Right PICC line February 14 out; left PICC line 04/07/2021 Right IJ HDC clean March 07 34 min cc time Vitals/I&O Vitals/I&O: Vital Signs Date Time Temp Pulse Resp B/P (MAP) Pulse Ox O2 Delivery O2 Flow Rate FiO2 04/18/21 11:29 98.8 112 19 161/77 (105) 98 Tracheal Collar 8.0 98.8 I & O 04/17/21 04/17/21 04/18/21 15:00 23:00 07:00 Intake Total 694 ml Output Total 1150 ml 500 ml Balance 694 ml -1150 ml -500 ml Physical Exam Physical Exam: GENERAL: Awake, pleasantly confused HEENT: Normocephalic, atraumatic. Anicteric. Slight bilateral periorbital arlet ma. Latter improving Neck right IJ HDC clean Trach + capped LUNGS: Rhonchi. HEART: S1, S2. No murmurs. ABDOMEN: Obese, soft. Bowel sounds present. Nontender, nondistended. PEG tube pulled out by patient GENITOURINARY: Kern and fecal tube in place. EXTREMITIES: Edema present no cyanosis. CENTRAL NERVOUS SYSTEM: Intubated. PSYCHIATRIC: Confused Derm has pressure wounds wound pictures noted in chart. Generalized rash, Right PICC line removed; left PICC line 04/07/2021 Right IJ HDC clean March 07 General: Alert, Oriented X3, Cooperative Heart: Regular rate, Normal S1, Normal S2 Lungs: Crackles Abdomen: Soft, Other (ND) Extremities: No cyanosis, Other (ANASARCA) Skin: No rashes, No significant lesion Labs Labs: Laboratory Tests Test 04/17/21 12:19 04/17/21 17:45 04/17/21 23:57 04/18/21 06:09 Glucose (Fingerstick) 293 mg/dL (70-99) 196 mg/dL (70-99) 256 mg/dL (70-99) 175 mg/dL (70-99) Test 04/18/21 06:30 Sodium Level 135 mmol/L (136-145) Potassium Level 3.5 mmol/L (3.5-5.1) Chloride Level 99 mmol/L (98-107) Carbon Dioxide Level 30 mmol/L (21-32) Anion Gap 6 (6-14) Blood Urea Nitrogen 30 mg/dL (7-20) Creatinine 1.9 mg/dL (0.6-1.0) Estimated GFR (Cockcroft-Gault) 28.6 Glucose Level 195 mg/dL (70-99) Calcium Level 8.7 mg/dL (8.5-10.1) Assessment and Plan Assessmemt and Plan Problems Medical Problems: (1) Ketoacidosis Status: Acute Comment Review of Relevant I have reviewed the following items mazin (where applicable) has been applied. Medications: Current Medications Medications (Trade) Dose Ordered Sig/Pepe Route PRN Reason Start Time Stop Time Status Last Admin Dose Admin Magnesium Sulfate 50 ml @ 25 mls/hr 1X ONCE IV 04/17/21 18:00 04/17/21 19:59 DC 04/17/21 17:31 Potassium Chloride/Water 100 ml @ 50 mls/hr Q2HR IV 04/17/21 18:00 04/17/21 21:59 DC 04/17/21 21:55 Justifications for Admission Other Justification LEO DELGADO MD Apr 18, 2021 11:54
[2021-04-18 15:34] VITALS: BP 154/78
[2021-04-18 19:45] VITALS: BP 169/83
[2021-04-18 23:13] VITALS: BP 165/80
[2021-04-18] MEDS: ONDANSETRON PF 4 MG/2 ML VIAL. IVP PRN (23:35)
[2021-04-18] MEDS: ATORVASTATIN CALCIUM 40 MG TABLET. PO SCH (23:35)
[2021-04-19] MEDS: HEPARIN for SUB-Q USE 5,000 UNIT/ML VIAL. SQ SCH ×4 (00:01→23:32)
[2021-04-19] MEDS: INSULIN LISPRO 300 UNITS/3 ML VIAL. SQ SCH ×5 (00:02→21:00)
[2021-04-19] MEDS: INSULIN GLARGINE SYRINGE. SQ SCH ×3 (00:02→23:31)
[2021-04-19 03:15] VITALS: BP 149/77
[2021-04-19 06:07] LABS: CALCIUM 8.7 mg/dL (8.5-10.1); CREATININE 1.8 mg/dL (0.6-1.0); GFR 30.4; POTASSIUM 3.6 mmol/L (3.5-5.1)
[2021-04-19 07:20] VITALS: BP 143/66
[2021-04-19] MEDS: IPRATRPIUM/ALBUTEROL 0.5/2.5MG 3 ML NEBU. NEB SCH ×5 (07:34→20:27)
[2021-04-19] MEDS: FAMOTIDINE 20 MG/2 ML VIAL IVP SCH (08:51)
[2021-04-19] MEDS: fentaNYL 25MCG/HR PATCH 1 PATCH PATCH.TD72 TD SCH (08:53)
[2021-04-19] MEDS: MULTIVITAMINS,THERAPEUTIC 5 ML ORAL LIQUID. PEG SCH (08:54)
[2021-04-19] MEDS: DOCUSATE 100 MG/10 ML SOLUTION. PO SCH ×2 (08:55→21:00)
[2021-04-19] MEDS: NYSTATIN TOPICAL POWDER 15GM BOTTLE. TP SCH ×2 (09:00→21:00)
--- NOTE | 2021-04-19 09:08 | PDOC ---
Infectious Disease Note Subjective: Subjective Patient without complaints Vital Signs: Vital Signs Vital Signs Date Time Temp Pulse Resp B/P (MAP) Pulse Ox O2 Delivery O2 Flow Rate FiO2 04/19/21 07:34 97 Tracheal Collar 10.0 04/19/21 07:20 98.3 121 22 143/66 (91) 98.3 Physical Exam: PHYSICAL EXAM GENERAL: Awake, alert in no acute distress HEENT: Normocephalic, atraumatic. Anicteric. Neck right IJ HDC clean Trach + capped LUNGS: Decreased breath sounds otherwise clear HEART: S1, S2. No murmurs. ABDOMEN: Obese, soft. Bowel sounds present. Nontender, nondistended. PEG tube pulled out by patient EXTREMITIES: Edema present no cyanosis. CENTRAL NERVOUS SYSTEM: Intubated. PSYCHIATRIC: Confused Derm has pressure wounds wound pictures noted in chart. Generalized rash, Right PICC line removed; left PICC line 04/07/2021 Right IJ HDC clean March 07 Medications: Inpatient Meds: Medications reviewed. Labs: Lab Laboratory Tests Test 04/18/21 18:23 04/18/21 20:56 04/19/21 05:40 04/19/21 07:43 Glucose (Fingerstick) 350 mg/dL (70-99) 294 mg/dL (70-99) 350 mg/dL (70-99) Sodium Level 131 mmol/L (136-145) Potassium Level 3.6 mmol/L (3.5-5.1) Chloride Level 94 mmol/L (98-107) Carbon Dioxide Level 30 mmol/L (21-32) Anion Gap 7 (6-14) Blood Urea Nitrogen 28 mg/dL (7-20) Creatinine 1.8 mg/dL (0.6-1.0) Estimated GFR (Cockcroft-Gault) 30.4 Glucose Level 275 mg/dL (70-99) Calcium Level 8.7 mg/dL (8.5-10.1) Micro GRAM STAIN EVALUATION Final Final This specimen is of good quality and is acceptable for routine bacterial culture. Culture results to follow. NO ORGANISMS SEEN. SQUAMOUS EPI CELL:RARE PMN (WBCs):MODERATE Unless otherwise specified, Testing Performed by: [address] [id number] For Inquires, the Physician may contact the Microbiology department at [phone] RESPIRATORY CULTURE Final Final MODERATE GRAM NEGATIVE RODS on 03/18/21 at 1120 FINAL ID= [[email or web address] [email or web address].] ACINETOBACTER URSINGII. ANTIMICROBIAL SUSCEPTIBILITY Final Comment NEG SAGE 56 ACINETOBACTER URSINGII. ANTIBIOTIC RESULT INTERPRETATION AMPICILLIN/SULBACTAM <=4/2 S AMIKACIN <=16 S CEFTRIAXONE 2 S CEFTAZIDIME 16 I CEFOTAXIME 16 I CIPROFLOXACIN <=0.25 S CEFEPIME 4 S GENTAMICIN <=2 S LEVOFLOXACIN <=0.5 S RUN DATE: 03/19/21 [facility] *LIVE* PAGE 2 RUN TIME: 1120 Specimen Inquiry SPEC: [id number] PATIENT: ARIADNA BANKS [id number] (Continued) ------- ----- Procedure Result CONTINUED ON NEXT PAGE RUN DATE: 03/19/21 [facility] *LIVE* PAGE 3 RUN TIME: 1120 Specimen Inquiry SPEC: [id number] PATIENT: ARIADNA BANKS [id number] (Continued) Procedure Result ANTIMICROBIAL SUSCEPTIBILITY Final (continued) MINOCYCLINE <=4 S MEROPENEM <=1 S TRIMETHOPRIM/SULFAMETHOXAZOLE <=0.5/9.5 S TOBRAMYCIN <=2 S Unless otherwise specified, Testing Performed by: [address] [id number] For Inquires, the Physician may contact the Microbiology department at [phone] Culture negative Objective: Assessment: 1. Febrile illness. Resolved 2. COVID-19 infection present on date of admission, 02/06/2021. Status post remdesivir, dexamethasone. 3. Acute hypoxic respiratory failure, status post intubation. S/P Trach on 03/17 Trach cultures positive for Rock albicans and now acinebacter ursungi 4. Diabetes. 5. Diarrhea. 6. Hypertension. 7. Hyperlipidemia. 8. Anemia. 9. BOB on HD 10.UC rock albican, ua neg 11. Nausea and vomiting 12. Leukocytosis likely reactive as patient had nausea and vomiting has pulled out PEG tube Plan: Plan of Care Monitor off antibiotics DC temporary HDC if not needed Wound care as directed Continue supportive care. KAITLYNN CRAIG MD Apr 19, 2021 09:08
[2021-04-19 11:13] VITALS: BP 155/78
[2021-04-19] MEDS ORDERED: oxyCODONE/APAP 5/325 1 TAB TABLET PO PRN ×2 (11:45)
--- NOTE | 2021-04-19 12:59 | PDOC ---
[facility] PROGRESS NOTE Date of Service DOS: DATE: 04/19/21 TIME: 12:57 Chief Complaint Chief Complaint COVID-19 acute hypoxic respiratory failure DKA Hypotension Nausea Vomiting Combined metabolic and respiratory acidosis Acute electrolyte derangementhyponatremia, hypochloremia due to volume deple tion Hyperglycemia BOB due to ATN, requiring dialysis Erythrocytosis Candiduria Sacral decubitus ulcer S/P Trach on (03/17/21) Trach cultures positive for [place] albicans and now acinebacter ursungi History of Present Illness History of Present Illness 04/19 Patient evaluated and examined at bedside. Sugars pretty high today will need more insulin adjustments. On trach collar when I saw her. Continue diet as tolerated. Discussed with at bedside. Diet as tolerated. Working towards discharge. Continue antibiotics. Will ask renal if temporary HD catheter is still needed if not can remove. 04/18 Patient evaluated examined at bedside. She was on trach collar. Continue regular diet as tolerated. Monitoring blood pressure. Working towards discharge. 04/17 Patient evaluated and examined at bedside. She is pretty alert today. Underwent video swallow study earlier and cleared for regular diet with thin liquids. Definite improvement for her. On trach collar when I saw her. Continue current treatments. Watch blood pressure. If she well keep up a consistent amount of p.o. intake may be able to stop tube feeds and PEG tube removal. But this is far down the line. 04/16 Patient seen examined at bedside. Transfer out of the ICU yesterday. Speech therapy to evaluate this morning. Improved notably since I last saw her in the ICU. Continue PEG feeds. Blood pressure treatment. Plan of care discussed with bedside RN. 04/15/2021 Patient seen and examined in the ICU She has clean dry intact tracheostomy with trach shield PEG feeds running at 30 cc an hour She really wants to drink water I told her that we are awaiting speech therapy to reevaluate her Chart reviewed Discussed with RN 04/14/2021 Patient seen and examined in the ICU She remains pleasantly confused Has a new PEG in place Discussed with physical therapy Discussed with RN Chart reviewed 04/13/2021 Patient seen and examined in the ICU She is pleasantly confused Sedated with Precedex and fentanyl I discussed with the speech therapist the patient has no laryngeal movement Now she is n.p.o. again Going for new PEG placement in interventional radiology hopefully later today Her trach is clean Chart reviewed Discussed with RN 04/12/2021 Patient seen and examined in the ICU Her is present today and seems to be good support for her Chart reviewed Discussed with RN Still sedated with Precedex and fentanyl but awake 04/11/2021 Patient seen and examined in the ICU She remains quite confused currently sedated Chart reviewed Discussed with RN Had some nausea vomiting last night Pulled out her PEG yesterday Currently on fentanyl and Precedex IV Zyvox hanging 04/10/2021 Patient seen and examined in the ICU She is pleasantly confused Has a trach shield in place Discussed with RN Chart reviewed We are adding in some as needed Ativan and scheduled Prozac Ms Borges is a 46 year old female who presented with nausea/vomiting since 7 AM 02/06/2021 in the morning. Patient stated that her recently tested positive for Covid. She states that he "coughed in my face because he thought it was funny." She reports subjective fevers and chills and nausea/vomiting. Denies sore throat, cough, shortness of breath. No chest pain. Does have some upper abdominal discomfort after vomiting, that she attributes to muscular strain. She was not vaccinated for Covid. 02/08: No acute events overnight. Patient seen and examined bedside and resting comfortably. Continues to complain of nausea not able to tolerate any diet at this time. Saturating 98% on room air. Patient's chart, labs, images were reviewed and discussed with RN 02/09: Afebrile, currently breathing on room air. Still with complaints of nausea and vomiting x3 today. States that she has history of similar symptoms that have been mildly improved with IV Dilaudid. 02/10: Patient febrile today with T-max 102.2 F. She still admits to nausea, denies any further vomiting. We will continue to provide supportive care and monitor for any recurrent fevers overnight. Patient continues to improve may discharge tomorrow to continue self-isolation. 02/11: Febrile overnight, T-max 102.3 F. She did become hypoxic overnight, currently breathing on 4 L nasal cannula. Also admits to associated vomiting or diarrhea overnight. Discussed with RN, will initiate remdesivir and closely monitor LFTs. IV Decadron, and prophylactic antibiotics. 02/12: Low-grade fever overnight, T-max 99.7. Currently breathing on room air. Will discontinue remdesivir, steroids, and antibiotics; will observe overnight. Still with complaints of vomiting x1 and diarrhea. We will continue to provide supportive care and hope to discharge in the next day or so. 02/13: Afebrile. Still complains of intermittent diarrhea. At the time of my evaluation she was breathing on 6 L nasal cannula; this is somewhat misleading as patient states that she did not feel short of breath but was placed on 6 L by nursing staff overnight. 02/14: Afebrile, currently breathing on 8 L nasal cannula. There has been some misleading documentation, chart oxygen this patient is requiring. Discussed with RN, will resume remdesivir to complete total of 5 days. Continue to monitor LFTs. Will add steroids, Rocephin, and azithromycin. 02/15: Afebrile. Became much more hypoxic overnight, requiring BiPAP. At the time of my evaluation she is still breathing on BiPAP. Consultation was placed to pulmonology. Had discussion with Dr. Myrick about initiating Tocilizumab 02/16: No acute events overnight. Patient becoming more hypoxic saturating 94% and requiring BiPAP. Patient will be transferred to the ICU at this time. For worsening clinical status. Discussed with pulmonary. Patient's chart, labs, images were reviewed and discussed with RN 02/17: Transferred to ICU yesterday afternoon. Seen and examined at bedside she remains on 100% FiO2 on BiPAP. Respirations do appear somewhat labored. Suspect intubation may be impending. We will closely monitor. Increase lisinopril to 20 today. 02/18: Patient required intubation yesterday afternoon. Saw and examined this morning. She is intubated and sedated. Increase insulin today. Covid protocol ordered. Wean as tolerated. Plan of care discussed with bedside nurse. 02/19: Bedside. She remains intubated and sedated. Continue Covid protocol. Wean oxygen sedation as tolerated. Pulmonary following. Plan of care discussed with bedside RN. 02/20: Patient seen and examined at bedside. She remains intubated and sedated. No major clinical changes. Continue current treatment. Pulmonary following. Plan of care discussed with bedside RN. 02/21: Patient seen and examined at bedside. Remains intubated and sedated date and admission clinical changes. Increase free water flushes today due to hypernatremia. Plan of care discussed with bedside nurse. 02/22: Patient seen and examined at bedside. O2 requirement actually improving, although remains intubated. Possible SBT in the coming days. Hypernatremia improving. Plan of care discussed bedside RN. 02/23: Patient remains in ICU on ventilator with FiO2 100%, PEEP 7. Repeat chest x-ray yesterday showed diffuse bilateral pulmonary opacities with no interval improvement. Will discontinue Rocephin and initiate Zosyn. We will continue IV steroids for a full 10-day course 02/24: Afebrile. On vent with FiO2 40%, PEEP 6. Her Coreg has been held due to persistent bradycardia. No documented history of systolic heart failure or previous echocardiogram. Will need to obtain echocardiogram prior to discharge. Continue IV steroids and antibiotics. 02/25: Afebrile. Remains ventilated with FiO2 45%, PEEP 6. Chest x-ray today showed slight improvement of the pulmonary infiltrates, no pneumothorax. Completed 10-day course of IV Decadron. Will initiate slow Solu-Medrol taper. Continue IV Zosyn. Continue supportive care. 02/26: Afebrile. On vent with FiO2 45%, PEEP 6. Completed 10 days of IV Decadron. Will continue IV Zosyn. Continue supportive care. Critical care time 30 minutes spent reviewing charts, reviewing imaging, reviewing labs, discussion with RN. 02/27: Afebrile. On vent with FiO2 45%, PEEP 6. Completed 10 days of steroids and completed remdesivir. Continue with IV Zosyn. CPAP trial yesterday. Co ntinue NG tube and supportive care. 02/28:. Patient remains on vent with FiO2 40%, PEEP 5. Afebrile. Completed steroids and remdesivir. Some noted hypoglycemia overnight, will de-escalate basal insulin. Continue IV Zosyn. Ventilator management per pulmonology. Continue NG tube and supportive care. 03/01: On vent with FiO2 40%, PEEP 5. Afebrile. Completed steroids and remdesiv ir. Blood glucose well controlled. Continue empiric antibiotics with Zosyn. Ventilator management per pulmonology. Continue NG tube and supportive care. 03/02: No acute events overnight. Patient hypotensive the morning due to oversedation. Will wean off sedation and keep antihypertensive medications on board. Currently saturating 100% on vent settings of 18/450/40/5. Will attempt spontaneous breathing trial today to see how patient does. 03/03: No acute events overnight. Patient saturating 98% on vent settings of 18/450/40/5. Will defer spontaneous breathing trials to pulmonary at this time. Patient's chart, labs, images were reviewed and discussed with RN 03/04: No acute events overnight. Patient saturating 9 9% on vent settings of 18/450/30/5. Patient currently is unable to tolerate weaning. Per pulmonary. Patient's chart, labs, images were reviewed and discussed with RN 03/05: No acute events overnight. Patient is saturating 97% on vent settings of 18/450/55/5. Her FiO2 needs to be increased due to abnormal ABG with 7.3 /. Patient's chart, labs, images were reviewed and discussed with RN 8: No acute events overnight. Patient saturating 94% on vent settings of 18/450/55/5. Chest x-ray showing increase in pulmonary infiltrates. Wound care is consulted for decubitus ulcer patient's chart, labs, images were reviewed and discussed with RN 8: No acute events overnight. Patient saturating 94% on vent settings of 20/450/70/8. Patient now heading into renal failure with her creatinine bumped up from 1.5-4.2. Decreased urine output. Plan for hemodialysis today and temporary catheter placement and nephrology is consulted. 03/08: No acute events overnight. Patient did have a nausea vomiting episode and tube feeds were held. KUB repeat shows NG tube still in the stomach. Will resume tube feeds at trickle and advance to goal today. Will start hemodialysis soon. 03/09: Seen on vent 20/450/60%/8. ABG 7.2 WBC 11.4, Hb 7.4, platelets 188, NA 131, K4.9, BUN 48, CR 51, glucose 199, phosphorus 7.9, mag 2.2, AST 265 ALT 219, albumin 1.1. Chest radiograph appears unchanged from prior. Dialysis x1 today 03/10: Afebrile. Seen on vent, 20/450/60/7 with ABG 7.3 . Tolerated dialysis well on 03/09. LFTs similar. 03/11: Afebrile. Seen on vent, sedated. Still requiring Levophed for BP support. WBC 16.7, Hb 8.1, NA 130, ABG 7.3 on 55% FiO2 PEEP 6. On Zosyn and Zyvox Diflucan. Dialysis today 03/12: Afebrile. Still requiring Levophed for BP support sedated with Versed febrile Precedex. WBC 16.1, Hb 8.5, platelets 185, NA 133. Trach plan tentatively 03/17. O2 saturations 93% on 50% FiO2 PEEP 6. ABG 7. On Zosyn and Zyvox Diflucan. 03/13: Afebrile. Still on Levophed for BP support lightly sedated. 7. on 45% FiO2. Plan for dialysis today. On Zosyn and Zyvox Diflucan. More swollen today. 03/14: Afebrile. Weaning down off Levophed. WBC 14.9 NA 132. O2 saturations 92% on 45% FiO2 PEEP 5. Afebrile. O2 saturations 91% on FiO2 45% PEEP 6. Continued on Zosyn and Zyvox Diflucan. Tentative trach planned 03/17/2021 CC time 31 minutes 03/16/21: Patient seen and examined in ICU. Periorbital as well as upper and lower extremity edema noted. OG feed running at 30cc/hr. Still on vent on pressure control with a rate of 24 with 45% FiO2. Patient has rectal bag. Currently she has 98% O2 sat. Currently sedated with Dexmedetomidine, Propofol, Versed, and F entanyl. Discussed with RN. Chart reviewed. 03/17/21: Patient was seen and examined in the ICU today. Periorbital edema as well as abdominal and mons pubis edema was noted. Patient still on vent on pressure control with Fi02 of 45% plus 6 PEEP. Patient had rectal bag. Currently sedated on Dexmedetomidine, Propofol, Versed, and Fentanyl. Discussed with RN. Chart reviewed. 03/18/21: Patient seen and examined in ICU. On vent via trach that was placed yesterday. Vent settings are Pressure Control of 40 with FiO2 of 45% and 6 PEEP. Trach clean and dry. Orbital swelling still present. Pupils are sluggish. Patient on TPN running at 30cc/hr. Kern to bedside and rectal bag in place. Current O2 sat at 94%. Sedated on Dexmedetomidine, Propofol, Versed, and Fentanyl. Discussed with RN. Chart reviewed. 03/19/21: Patient was seen and examined in the ICU today. Currently on vent via trach on pressure control of 42, rate of 24, FiO2 of 45%, and 6 PEEP. O2 sat is at 97% while patient is being examined. Trach is clean and dry. PICC line is in place on right arm. Periorbital swelling has decreased slightly since examined yesterday. Patient is sedated on Dexmedetomidine, Propofol, Versed, and Fentanyl. Discussed with RN. Chart reviewed. 03/20/21: Patient seen and examined in the ICU. Periorbital edema is slightly decreased since yesterday. O2 sat while being examined was 93%. NG tube in place and running at 30cc/hr. Patient on vent via trach on pressure control of 40 with FiO2 of 45 and rate of 24. Sedated on Dexmedetomidine, Propofol, Versed, and Fentanyl. PICC line in place. Kern to bedside. Rectal bag present. Discussed with RN. Chart reviewed. 03/21/21: Patient was seen and examined in the ICU today. She was semi-sedated.. She was on Dexmedetomidine and Fentanyl. We are holding the Propofol. Her eyes were periodically open but she was not making meaningful eye contact or tracking. On vent via trach with pressure control of 40 and FiO2 at 45. Rate was 24. PEEP was 5. Trach was clean and dry. While being examined, her O2 sat was 94%. Rectal bag and Kern to bedside in place. NG tube in place and feeding at 30cc/hr. IV fluids still running. Levophed has been stopped. Discussed with RN. Chart reviewed. 03/22/21: Patient was seen and examined in the ICU. She was semi-sedated on Propofol and Dexmedetomidine. Her eyes were open but she did not make meaningful eye contact. Her blood pressure was elevated (198/102) while being examined and she had just been given hydralazine to lower it. There are plans to place a PEG tube tomorrow. Currently on vent via trach on pressure control of 40 with FiO2 of 45%, 5 PEEP, and a rate of 24. Current O2 sat is 98%. She is feeding through an NG tube at 30cc/hr. Rectal bag and Kern to bedside present. SCDs on patient for DVT prophylaxis. She did not do her daily dialysis today but the plan is to start back on that tomorrow. Discussed with RN. Chart reviewed. 03/23/2021: Patient remains in ICU on ventilator. FiO2 40%, PEEP 5. Trach cultures positive for [place] albicans and acinebacter ursungi. We will continue treatment with IV antibiotics and micafungin, per ID. HD per nephrology. Plans for PEG tube placement today. 30 minutes critical care time was spent reviewing charts, reviewing labs, reviewing imaging, discussion with RN. 03/24/2021: Afebrile. On vent with FiO2 45%, PEEP 5. Had attempted PEG placement per GI yesterday, but unable to locate safe path for PEG; will consider surgical opinion. Once PEG is in place she should be stable for LTAC transfer when accepted. Continue antibiotics, per ID. 30 minutes critical care time was spent reviewing charts, reviewing labs, reviewing imaging, discussion with RN. 03/25/2021: Febrile overnight with T-max 101.5 F. On vent with FiO2 45%, PEEP 5. Surgery has been consulted with tentative plans for laparoscopic versus open gastrostomy placement tomorrow. Trach cultures positive for [place] albicans and now acinebacter ursungi; will continue antibiotic management, per ID. Hemodialysis, per nephrology. Patient needing LTAC placement, but currently without benefits. salvage mend worker following for discharge planning. Critical care time 30 minutes spent reviewing charts, reviewing labs, reviewing imaging, discussion with RN. 03/26/2021: Febrile today with T-max 100.5 F. Awake on vent with FiO2 45%, PEEP 5. When I ask if she remembers any she nods. G-tube placement scheduled for tomorrow, per general surgery. Chest x-ray today showed slight interval increase in diffuse infiltrate. Continue antibiotic management, per ID. Hemodialysis per nephrology. Reportedly did not tolerate CPAP trial this morning. salvage mend worker following for LTAC placement. Critical care time 30 minutes spent reviewing charts, reviewing labs, reviewing imaging, discussion with RN. 03/27/2021: On vent with FiO2 45%, PEEP 5. Afebrile today. Continue treatment of acute renal failure requiring HD, per nephrology. Monitor kidney function for recovery. G-tube placement scheduled for today, per general surgery. Likely LTAC placement soon, but this is been a difficult as she is self-pay without benefits; socially responsible investment adviser following. Critical care time 30 minutes spent reviewing charts, reviewing labs, reviewing imaging, discussion with RN. 03/28/2021: Afebrile. On vent with FiO2 40%, PEEP 5. Had laparoscopic gastrostomy tube placed yesterday, per general surgery. Continue treatment of acute renal failure requiring HD, per nephrology. Continue IV antibiotics, per ID. Likely LTAC placement soon, but this is been a difficult as she is self-pay without benefits; socially responsible investment adviser following. Critical care time 30 minutes spent reviewing charts, reviewing labs, reviewing imaging, discussion with RN. 03/29/2021: Afebrile. On vent with FiO2 45%, PEEP 5. S/P laparoscopic gastrostomy tube; tube feeds running. HD, per nephrology. Continue meropenem, per ID. Anticipate LTAC placement soon now that PEG has being placed; socially responsible investment adviser helping in these regards. Critical care time 30 minutes spent reviewing charts, reviewing labs, reviewing imaging, discussion with RN. 03/30 No major events or clinical changes overnight. Patient evaluated at bedside this morning on trach and G-tube. Tolerating these well. Has been working on insurance for patient for placement as she will need long-term care. Guarded prognosis. Plan of care discussed with bedside nurse. 03/31 No major clinical changes. Remains trached. Sedated. Continue current plan. 04/01 No changes. Patient resting in bed when evaluated sedated. is supposed to be working on insurance for placement for the patient. Otherwise no changes. 04/02 Patient febrile overnight, daptomycin added this morning per infectious disease. Otherwise no major clinical changes. Awaiting insurance. Infectious disease, pulmonary and renal following. Plan of care discussed with bedside RN. 04/03 Patient undergoing dialysis today. Evaluated at bedside this morning. otherwise continue current plan. supposed working on insurance. 04/04 No major overnight changes. Continue current plan. 04/05 Patient notably more movement this morning eyes open resting in bed otherwise no major changes. Continue current plan. Insurance pending. 04/06 Patient notably more movement this morning eyes open resting in bed current plan. Insurance pending. Continue daptomycin, renal dosing April 02 F/U Blood culture UA urine culture C. diff PCR negative 32 min cc time 04/07 Patient notably more movement this morning eyes open resting in bed current plan. Insurance pending. Continue daptomycin, renal dosing April 02 F/U Blood culture UA urine culture C. diff PCR negative Abnormal chest x-ray consistent with COVID-19 viral pneumonia. Diabetic ketoacidosis--resolved obesity contributing to hypoxia as well. BOB . hemodialysis started 03/07 DVT GI prophylaxis Nutritional support 34 min cc time 04/08 Patient notably more movement this morning eyes open resting in bed current plan. Insurance pending. Continue daptomycin, renal dosing April 02 F/U Blood culture UA urine culture C. diff PCR negative s/p lap G-tube 03/27 Abnormal chest x-ray consistent with COVID-19 viral pneumonia. Diabetic ketoacidosis--resolved obesity contributing to hypoxia as well. BOB . hemodialysis started 03/07 DVT GI prophylaxis Nutritional support Right PICC line February 14 out; left PICC line 04/07/2021 Right IJ HDC clean March 07 32 min cc time 04/09 non Oliguric for past 11/2 -2 weeks , good response to IV NS bolus .requiring dialysis., currently on MWF schedule, tolerating trach shield well.using her speaking valve./ resting in bed current / states she feels better Start iv Zyvox Cont Meropenem DC daptomycin post PICC line exchange aspiration precautions C. diff PCR negative F/U Blood culture UA urine culture s/p lap G-tube 03/27 Abnormal chest x-ray consistent with COVID-19 viral pneumonia. Diabetic ketoacidosis--resolved obesity contributing to hypoxia as well. BOB . hemodialysis started 03/07 DVT GI prophylaxis Nutritional support Right PICC line February 14 out; left PICC line 04/07/2021 Right IJ HDC clean March 07 34 min cc time Vitals/I&O Vitals/I&O: Vital Signs Date Time Temp Pulse Resp B/P (MAP) Pulse Ox O2 Delivery O2 Flow Rate FiO2 04/19/21 12:09 97 Tracheal Collar 10.0 04/19/21 11:13 98.7 128 20 155/78 (103) 98.7 I & O 04/18/21 04/18/21 04/19/21 15:00 23:00 07:00 Intake Total 760 ml 600 ml 250 ml Output Total 1450 ml 1350 ml Balance 760 ml -850 ml -1100 ml Physical Exam Physical Exam: GENERAL: Awake, alert in no acute distress HEENT: Normocephalic, atraumatic. Anicteric. Neck right IJ HDC clean Trach + capped LUNGS: Decreased breath sounds otherwise clear HEART: S1, S2. No murmurs. ABDOMEN: Obese, soft. Bowel sounds present. Nontender, nondistended. PEG tube pulled out by patient EXTREMITIES: Edema present no cyanosis. CENTRAL NERVOUS SYSTEM: Intubated. PSYCHIATRIC: Confused Derm has pressure wounds wound pictures noted in chart. Generalized rash, Right PICC line removed; left PICC line 04/07/2021 Right IJ HDC clean March 07 General: Alert, Oriented X3, Cooperative Heart: Regular rate, Normal S1, Normal S2 Lungs: Crackles Abdomen: Soft, Other (ND) Extremities: No cyanosis, Other (ANASARCA) Skin: No rashes, No significant lesion Labs Labs: Laboratory Tests Test 04/18/21 18:23 04/18/21 20:56 04/19/21 05:40 04/19/21 07:43 Glucose (Fingerstick) 350 mg/dL (70-99) 294 mg/dL (70-99) 350 mg/dL (70-99) Sodium Level 131 mmol/L (136-145) Potassium Level 3.6 mmol/L (3.5-5.1) Chloride Level 94 mmol/L (98-107) Carbon Dioxide Level 30 mmol/L (21-32) Anion Gap 7 (6-14) Blood Urea Nitrogen 28 mg/dL (7-20) Creatinine 1.8 mg/dL (0.6-1.0) Estimated GFR (Cockcroft-Gault) 30.4 Glucose Level 275 mg/dL (70-99) Calcium Level 8.7 mg/dL (8.5-10.1) Test 04/19/21 12:08 Glucose (Fingerstick) 445 mg/dL (70-99) Assessment and Plan Assessmemt and Plan Problems Medical Problems: (1) Ketoacidosis Status: Acute Comment Review of Relevant I have reviewed the following items mazin (where applicable) has been applied. Justifications for Admission Other Justification LEO DELGADO MD Apr 19, 2021 12:59
[2021-04-19] MEDS ORDERED: ALBUTEROL SULFATE 2.5 MG/3 ML NEBU. NEB PRN (13:00)
--- NOTE | 2021-04-19 14:30 | NUR ---
Pt called out stating patient had had an accident on herself and needed to be cleaned up. Pt was informed that staff would be in as soon as help was found. Pt called out approximately 10 minutes after initial call stating patient needed to be cleaned up. Staff obtained supplies and headed to patient room. Pt screaming for help. Upon entering patient room, was standing over patient who was on the ground. It appeared that the had helped the patient to the bedside commode prior to patient falling. states that he called several times and patient would not stay in bed so he helped her to the commode. also stated that he could not keep her sitting on the commode to wait for assistance and that is when she fell. Pt did not injure herself upon falling. did place gait belt on patient prior to transferring her. Multiple staff members at bedside to assist patient from the floor. PT VS stable. Pt feels SOA with an O2 saturation of 99%. Pt placed back in bed and cleaned up. New wound dressing placed. Pt given PRN Ativan and deep suctioned. Pt finally calmed down after Ativan administration. Physician notified and no new orders given. Pt in bed with at bedside, call light in reach, and bed alarm on.
[2021-04-19 14:50] VITALS: BP 112/66
[2021-04-19 19:40] VITALS: BP 138/58
[2021-04-19 23:00] VITALS: BP 123/70
[2021-04-19] MEDS: ATORVASTATIN CALCIUM 40 MG TABLET. PO SCH (23:32)
[2021-04-19] MEDS: ONDANSETRON PF 4 MG/2 ML VIAL. IVP PRN (23:33)
[2021-04-20 03:25] VITALS: BP 119/63
[2021-04-20] MEDS: HEPARIN for SUB-Q USE 5,000 UNIT/ML VIAL. SQ SCH ×3 (06:00→21:38)
[2021-04-20 07:00] VITALS: BP 122/74
[2021-04-20 07:12] LABS: CALCIUM 8.5 mg/dL (8.5-10.1); CREATININE 1.8 mg/dL (0.6-1.0); GFR 30.4; POTASSIUM 3.9 mmol/L (3.5-5.1)
[2021-04-20] MEDS: IPRATRPIUM/ALBUTEROL 0.5/2.5MG 3 ML NEBU. NEB SCH ×4 (07:37→20:00)
[2021-04-20] MEDS: DOCUSATE 100 MG/10 ML SOLUTION. PO SCH ×2 (08:34→21:18)
[2021-04-20] MEDS: MULTIVITAMINS,THERAPEUTIC 5 ML ORAL LIQUID. PEG SCH (08:36)
[2021-04-20] MEDS: FAMOTIDINE 20 MG/2 ML VIAL IVP SCH (08:36)
[2021-04-20] MEDS: NYSTATIN TOPICAL POWDER 15GM BOTTLE. TP SCH ×2 (08:37→21:20)
--- NOTE | 2021-04-20 09:37 | PDOC ---
PULMONARY PROGRESS NOTES DATE: 04/20/21 TIME: 09:37 Subjective Patient sleeping, I did not wake her up no signs of respiratory this Vitals Vital Signs Date Time Temp Pulse Resp B/P (MAP) Pulse Ox O2 Delivery O2 Flow Rate FiO2 04/20/21 08:36 118 119/63 04/20/21 07:37 98 Tracheal Collar 10.0 04/20/21 07:00 97.8 22 97.8 ROS: No Nausea, No Chest Pain, No Abdominal Pain, No Increase Cough Lungs: Crackles Cardiovascular: S1 Abdomen: Soft, Non-tender Neuro Exam: Alert, Normal Speech Skin: Warm Labs Laboratory Tests Test 04/18/21 18:23 04/18/21 20:56 04/19/21 05:40 04/19/21 07:43 Glucose (Fingerstick) 350 mg/dL (70-99) 294 mg/dL (70-99) 350 mg/dL (70-99) Sodium Level 131 mmol/L (136-145) Potassium Level 3.6 mmol/L (3.5-5.1) Chloride Level 94 mmol/L (98-107) Carbon Dioxide Level 30 mmol/L (21-32) Anion Gap 7 (6-14) Blood Urea Nitrogen 28 mg/dL (7-20) Creatinine 1.8 mg/dL (0.6-1.0) Estimated GFR (Cockcroft-Gault) 30.4 Glucose Level 275 mg/dL (70-99) Calcium Level 8.7 mg/dL (8.5-10.1) Test 04/19/21 12:08 04/19/21 16:14 04/19/21 21:12 04/20/21 06:10 Glucose (Fingerstick) 445 mg/dL (70-99) 282 mg/dL (70-99) 175 mg/dL (70-99) Sodium Level 131 mmol/L (136-145) Potassium Level 3.9 mmol/L (3.5-5.1) Chloride Level 96 mmol/L (98-107) Carbon Dioxide Level 29 mmol/L (21-32) Anion Gap 6 (6-14) Blood Urea Nitrogen 23 mg/dL (7-20) Creatinine 1.8 mg/dL (0.6-1.0) Estimated GFR (Cockcroft-Gault) 30.4 Glucose Level 191 mg/dL (70-99) Calcium Level 8.5 mg/dL (8.5-10.1) Test 04/20/21 07:23 Glucose (Fingerstick) 200 mg/dL (70-99) Laboratory Tests Test 04/19/21 12:08 04/19/21 16:14 04/19/21 21:12 04/20/21 06:10 Glucose (Fingerstick) 445 mg/dL (70-99) 282 mg/dL (70-99) 175 mg/dL (70-99) Sodium Level 131 mmol/L (136-145) Potassium Level 3.9 mmol/L (3.5-5.1) Chloride Level 96 mmol/L (98-107) Carbon Dioxide Level 29 mmol/L (21-32) Anion Gap 6 (6-14) Blood Urea Nitrogen 23 mg/dL (7-20) Creatinine 1.8 mg/dL (0.6-1.0) Estimated GFR (Cockcroft-Gault) 30.4 Glucose Level 191 mg/dL (70-99) Calcium Level 8.5 mg/dL (8.5-10.1) Test 04/20/21 07:23 Glucose (Fingerstick) 200 mg/dL (70-99) Medications Active Scripts Medications Dose Route/Sig Max Daily Dose Days Date Category Novolog Flexpen (Insulin Aspart) 100 Unit/1 Ml Insuln.pen 3-7 SQ TIDACHC 02/07/21 Reported Lisinopril 5 Mg Tablet 1 Tab PO DAILY 02/07/21 Reported Lantus Solostar (Insulin Glargine,Hum.rec.anlog) 100 Unit/1 Ml Insuln.pen 5 Unit SQ QHS 04/09/15 Reported Atorvastatin Calcium 40 Mg Tablet 40 Mg PO HS 04/09/15 Reported Impression . IMPRESSION: 1. Acute hypoxic respiratory failure secondary to COVID-19 viral pneumonia/acute lung injury and early acute respiratory distress syndrome. S/P intubation 02/17/21. Status post tracheostomy. 2. Nonsmoker. 3. Abnormal chest x-ray consistent with COVID-19 viral pneumonia. 4. Diabetic ketoacidosis--resolved 5. Underlying obesity contributing to hypoxia as well. 6. BOB . hemodialysis started 03/07 7. Fever, 30 ID 8. Abnormal chest x-ray with diffuse interstitial infiltrates compatible with viral pneumonia 9. [place] in the sputum is a contamination 10. Septic shoc 11. s/p lap G-tube 03/27 12. Delirium Plan . Updated 04/20 Continue current care We will discussed with RT Kaden curry for now updated 04/17 Patient asleep I did not wake her up Continue current support On visual inspection no respiratory distress was noted MONTEZ OROPEZA MD Apr 20, 2021 09:37
--- NOTE | 2021-04-20 09:57 | PDOC ---
Infectious Disease Note Subjective Subjective Patient without complaints ROS ROS no n/v/d/sob Vital Sign Vital Signs Vital Signs Date Time Temp Pulse Resp B/P (MAP) Pulse Ox O2 Delivery O2 Flow Rate FiO2 04/20/21 08:36 118 119/63 04/20/21 07:37 98 Tracheal Collar 10.0 04/20/21 07:00 97.8 22 97.8 Physical Exam PHYSICAL EXAM GENERAL: Awake, alert in no acute distress HEENT: Normocephalic, atraumatic. Anicteric. Neck right IJ HDC clean Trach + capped LUNGS: Decreased breath sounds otherwise clear HEART: S1, S2. No murmurs. ABDOMEN: Obese, soft. Bowel sounds present. Nontender, nondistended. PEG tube pulled out by patient EXTREMITIES: Edema present no cyanosis. CENTRAL NERVOUS SYSTEM: Intubated. PSYCHIATRIC: Confused Derm has pressure wounds wound pictures noted in chart. Generalized rash, Right PICC line removed; left PICC line 04/07/2021 Right IJ HDC clean March 07 Labs Lab Laboratory Tests Test 04/19/21 12:08 04/19/21 16:14 04/19/21 21:12 04/20/21 06:10 Glucose (Fingerstick) 445 mg/dL (70-99) 282 mg/dL (70-99) 175 mg/dL (70-99) Sodium Level 131 mmol/L (136-145) Potassium Level 3.9 mmol/L (3.5-5.1) Chloride Level 96 mmol/L (98-107) Carbon Dioxide Level 29 mmol/L (21-32) Anion Gap 6 (6-14) Blood Urea Nitrogen 23 mg/dL (7-20) Creatinine 1.8 mg/dL (0.6-1.0) Estimated GFR (Cockcroft-Gault) 30.4 Glucose Level 191 mg/dL (70-99) Calcium Level 8.5 mg/dL (8.5-10.1) Test 04/20/21 07:23 Glucose (Fingerstick) 200 mg/dL (70-99) Micro GRAM STAIN EVALUATION Final Final This specimen is of good quality and is acceptable for routine bacterial culture. Culture results to follow. NO ORGANISMS SEEN. SQUAMOUS EPI CELL:RARE PMN (WBCs):MODERATE Unless otherwise specified, Testing Performed by: [facility] [address] [place] [address] For Inquires, the Physician may contact the Microbiology department at [phone] RESPIRATORY CULTURE Final Final MODERATE GRAM NEGATIVE RODS on 03/18/21 at 1120 FINAL ID= [ACINETOBACTER [email or web address].] ACINETOBACTER URSINGII. ANTIMICROBIAL SUSCEPTIBILITY Final Comment NEG SAGE 56 ACINETOBACTER URSINGII. ANTIBIOTIC RESULT INTERPRETATION AMPICILLIN/SULBACTAM <=4/2 S AMIKACIN <=16 S CEFTRIAXONE 2 S CEFTAZIDIME 16 I CEFOTAXIME 16 I CIPROFLOXACIN <=0.25 S CEFEPIME 4 S GENTAMICIN <=2 S LEVOFLOXACIN <=0.5 S RUN DATE: 03/19/21 [facility] *LIVE* PAGE 2 RUN TIME: 1120 Specimen Inquiry --------- --- SPEC: [id number] PATIENT: ARIADNA BANKS [id number] (Continued) Procedure Result CONTINUED ON NEXT PAGE RUN DATE: 03/19/21 [facility] *LIVE* PAGE 3 RUN TIME: 1120 Specimen Inquiry SPEC: [id number] PATIENT: ARIADNA BANKS [id number] (Continued) Procedure Result ANTIMICROBIAL SUSCEPTIBILITY Final (continued) MINOCYCLINE <=4 S MEROPENEM <=1 S TRIMETHOPRIM/SULFAMETHOXAZOLE <=0.5/9.5 S TOBRAMYCIN <=2 S Unless otherwise specified, Testing Performed by: [address] [address] For Inquires, the Physician may contact the Microbiology department at [phone] Culture negative Objective Assessment 1. Febrile illness. Improved 2. COVID-19 infection present on date of admission, 02/06/2021. Status post remdesivir, dexamethasone. 3. Acute hypoxic respiratory failure, status post intubation. S/P Trach on 03/17 Trach cultures positive for Rock albicans and now acinebacter ursungi 4. Diabetes. 5. Diarrhea. 6. Hypertension. 7. Hyperlipidemia. 8. Anemia. 9. BOB on HD 10.UC rock alb[place], ua neg Plan Plan of Care Monitor off antibiotics DC temporary HDC if not needed Wound care as directed Continue supportive care. BLANCA CRAIG MD Apr 20, 2021 09:57
[2021-04-20] MEDS: diphenhydrAMINE ORAL ELIXIR 12.5 MG/5 ML ML PEG PRN ×2 (10:21→21:18)
[2021-04-20] MEDS: INSULIN GLARGINE SYRINGE. SQ SCH ×2 (10:27→21:39)
[2021-04-20] MEDS: INSULIN LISPRO 300 UNITS/3 ML VIAL. SQ SCH ×4 (10:28→21:40)
[2021-04-20 10:49] VITALS: BP 109/56
--- NOTE | 2021-04-20 11:14 | PDOC ---
Renal-Progress Notes Subjective Notes Notes SOME CONFUSION History of Present Illness Hx of present illness STABLE Vitals Vitals Vital Signs Date Time Temp Pulse Resp B/P (MAP) Pulse Ox O2 Delivery O2 Flow Rate FiO2 04/20/21 10:49 98.6 120 20 109/56 (73) 92 TRACH SHIELD 10.0 98.6 Weight Weight [ ] I.O. Intake and Output Intake and Output 04/20/21 07:00 Intake Total 1270 ml Output Total 1650 ml Balance -380 ml Intake Oral 1270 ml Output Urine Total 1650 ml # Bowel Movements 2 Labs Labs Laboratory Tests Test 04/19/21 12:08 04/19/21 16:14 04/19/21 21:12 04/20/21 06:10 Glucose (Fingerstick) 445 mg/dL (70-99) 282 mg/dL (70-99) 175 mg/dL (70-99) Sodium Level 131 mmol/L (136-145) Potassium Level 3.9 mmol/L (3.5-5.1) Chloride Level 96 mmol/L (98-107) Carbon Dioxide Level 29 mmol/L (21-32) Anion Gap 6 (6-14) Blood Urea Nitrogen 23 mg/dL (7-20) Creatinine 1.8 mg/dL (0.6-1.0) Estimated GFR (Cockcroft-Gault) 30.4 Glucose Level 191 mg/dL (70-99) Calcium Level 8.5 mg/dL (8.5-10.1) Test 04/20/21 07:23 Glucose (Fingerstick) 200 mg/dL (70-99) Micro Micro Microbiology 04/02/21 Urine Culture - Final, Complete 04/02/21 Blood Culture - Final, Complete NO GROWTH AFTER 5 DAYS 03/16/21 Gram Stain Evaluation - Final, Complete 03/16/21 Respiratory Culture - Final, Complete 03/16/21 Antimicrobic Susceptibility - Final, Complete Review of Systems Constitutional: yes: other (UNABLE TO OBTAIN) Physical Exam General Appearance: no apparent distress Skin: warm Respiratory: decreased breath sounds Heart: S1S2 Abdomen: soft, bowel sounds present Extremities: pulses present Neurology: alert Assessment Assessment IMP [id number] HD ON 04-11 HEMATURIA GLUCOSURIA MET AND RESP ACIDOSIS WITH ACIDEMIA-IMPROVED COVID 19 PNEUMONIA ACUTE RESP FAILURE-S/P TRACH DM II HTN OBESITY ANEMIA GENERALIZED EDEMA-STABLE LEUCOCYTOSIS HYPOKALEMIA-CORRECTED PLAN MONITOR FOR RENAL RECOVERY PROB REMOVE TEMP HD LINE TOMORROW ANTIBIOTICS ID EVAL AND TX WILL AVOID DOYLE DUE TO THROMBOGENIC STATE STOP NORVASC WILL FOLLOW COLLIN ROLON MD Apr 20, 2021 11:14
[2021-04-20 14:51] VITALS: BP 108/60
--- NOTE | 2021-04-20 15:00 | PDOC ---
[facility] PROGRESS NOTE Date of Service DOS: DATE: 04/20/21 TIME: 14:57 Chief Complaint Chief Complaint COVID-19 acute hypoxic respiratory failure DKA Hypotension Nausea Vomiting Combined metabolic and respiratory acidosis Acute electrolyte derangementhyponatremia, hypochloremia due to volume deple tion Hyperglycemia BOB due to ATN, requiring dialysis Erythrocytosis Candiduria Sacral decubitus ulcer S/P Trach on (03/17/21) Trach cultures positive for [place] albicans and now acinebacter ursungi History of Present Illness History of Present Illness 04/20: Afebrile, breathing on 10 L trach shield. Had some itching today; ordered as needed Benadryl. Kidney function improved and appears to be stable. Per nephrology, possible HD line removal tomorrow. Per ID, will monitor off antibiotics. 04/19 Patient evaluated and examined at bedside. Sugars pretty high today will need more insulin adjustments. On trach collar when I saw her. Continue diet as tolerated. Discussed with at bedside. Diet as tolerated. Working towards discharge. Continue antibiotics. Will ask renal if temporary HD catheter is still needed if not can remove. 04/18 Patient evaluated examined at bedside. She was on trach collar. Continue regular diet as tolerated. Monitoring blood pressure. Working towards discharge. 04/17 Patient evaluated and examined at bedside. She is pretty alert today. Underwent video swallow study earlier and cleared for regular diet with thin liquids. Definite improvement for her. On trach collar when I saw her. Continue current treatments. Watch blood pressure. If she well keep up a consistent amount of p.o. intake may be able to stop tube feeds and PEG tube removal. But this is far down the line. 04/16 Patient seen examined at bedside. Transfer out of the ICU yesterday. Speech therapy to evaluate this morning. Improved notably since I last saw her in the ICU. Continue PEG feeds. Blood pressure treatment. Plan of care discussed with bedside RN. 04/15/2021 Patient seen and examined in the ICU She has clean dry intact tracheostomy with trach shield PEG feeds running at 30 cc an hour She really wants to drink water I told her that we are awaiting speech therapy to reevaluate her Chart reviewed Discussed with RN 04/14/2021 Patient seen and examined in the ICU She remains pleasantly confused Has a new PEG in place Discussed with physical therapy Discussed with RN Chart reviewed 04/13/2021 Patient seen and examined in the ICU She is pleasantly confused Sedated with Precedex and fentanyl I discussed with the speech therapist the patient has no laryngeal movement Now she is n.p.o. again Going for new PEG placement in interventional radiology hopefully later today Her trach is clean Chart reviewed Discussed with RN 04/12/2021 Patient seen and examined in the ICU Her is present today and seems to be good support for her Chart reviewed Discussed with RN Still sedated with Precedex and fentanyl but awake 04/11/2021 Patient seen and examined in the ICU She remains quite confused currently sedated Chart reviewed Discussed with RN Had some nausea vomiting last night Pulled out her PEG yesterday Currently on fentanyl and Precedex IV Zyvox hanging 04/10/2021 Patient seen and examined in the ICU She is pleasantly confused Has a trach shield in place Discussed with RN Chart reviewed We are adding in some as needed Ativan and scheduled Prozac Ms Borges is a 46 year old female who presented with nausea/vomiting since 7 AM 02/06/2021 in the morning. Patient stated that her recently tested positive for Covid. She states that he "coughed in my face because he thought it was funny." She reports subjective fevers and chills and nausea/vomiting. Denies sore throat, cough, shortness of breath. No chest pain. Does have some upper abdominal discomfort after vomiting, that she attributes to muscular strain. She was not vaccinated for Covid. 02/08: No acute events overnight. Patient seen and examined bedside and resting comfortably. Continues to complain of nausea not able to tolerate any diet at this time. Saturating 98% on room air. Patient's chart, labs, images were reviewed and discussed with RN 02/09: Afebrile, currently breathing on room air. Still with complaints of nausea and vomiting x3 today. States that she has history of similar symptoms that hav e been mildly improved with IV Dilaudid. 02/10: Patient febrile today with T-max 102.2 F. She still admits to nausea, denies any further vomiting. We will continue to provide supportive care and monitor for any recurrent fevers overnight. Patient continues to improve may discharge tomorrow to continue self-isolation. 02/11: Febrile overnight, T-max 102.3 F. She did become hypoxic overnight, currently breathing on 4 L nasal cannula. Also admits to associated vomiting or diarrhea overnight. Discussed with RN, will initiate remdesivir and closely monitor LFTs. IV Decadron, and prophylactic antibiotics. 02/12: Low-grade fever overnight, T-max 99.7. Currently breathing on room air. Will discontinue remdesivir, steroids, and antibiotics; will observe overnight. Still with complaints of vomiting x1 and diarrhea. We will continue to provide supportive care and hope to discharge in the next day or so. 02/13: Afebrile. Still complains of intermittent diarrhea. At the time of my evaluation she was breathing on 6 L nasal cannula; this is somewhat misleading as patient states that she did not feel short of breath but was placed on 6 L by nursing staff overnight. 02/14: Afebrile, currently breathing on 8 L nasal cannula. There has been some misleading documentation, chart oxygen this patient is requiring. Discussed with RN, will resume remdesivir to complete total of 5 days. Continue to monitor LFTs. Will add steroids, Rocephin, and azithromycin. 02/15: Afebrile. Became much more hypoxic overnight, requiring BiPAP. At the time of my evaluation she is still breathing on BiPAP. Consultation was placed to pulmonology. Had discussion with Dr. Myrick about initiating Tocilizumab 02/16: No acute events overnight. Patient becoming more hypoxic saturating 94% and requiring BiPAP. Patient will be transferred to the ICU at this time. For worsening clinical status. Discussed with pulmonary. Patient's chart, labs, images were reviewed and discussed with RN 02/17: Transferred to ICU yesterday afternoon. Seen and examined at bedside she remains on 100% FiO2 on BiPAP. Respirations do appear somewhat labored. Suspect intubation may be impending. We will closely monitor. Increase lisinopril to 20 today. 02/18: Patient required intubation yesterday afternoon. Saw and examined this tomas gay. She is intubated and sedated. Increase insulin today. Covid protocol ordered. Wean as tolerated. Plan of care discussed with bedside nurse. 02/19: Bedside. She remains intubated and sedated. Continue Covid protocol. Wean oxygen sedation as tolerated. Pulmonary following. Plan of care discussed with bedside RN. 02/20: Patient seen and examined at bedside. She remains intubated and sedated. No major clinical changes. Continue current treatment. Pulmonary following. Plan of care discussed with bedside RN. 02/21: Patient seen and examined at bedside. Remains intubated and sedated date and admission clinical changes. Increase free water flushes today due to hypernatremia. Plan of care discussed with bedside nurse. 02/22: Patient seen and examined at bedside. O2 requirement actually improving, although remains intubated. Possible SBT in the coming days. Hypernatremia improving. Plan of care discussed bedside RN. 02/23: Patient remains in ICU on ventilator with FiO2 100%, PEEP 7. Repeat chest x-ray yesterday showed diffuse bilateral pulmonary opacities with no interval improvement. Will discontinue Rocephin and initiate Zosyn. We will continue IV steroids for a full 10-day course 02/24: Afebrile. On vent with FiO2 40%, PEEP 6. Her Coreg has been held due to persistent bradycardia. No documented history of systolic heart failure or previous echocardiogram. Will need to obtain echocardiogram prior to discharge. Continue IV steroids and antibiotics. 02/25: Afebrile. Remains ventilated with FiO2 45%, PEEP 6. Chest x-ray today showed slight improvement of the pulmonary infiltrates, no pneumothorax. Completed 10-day course of IV Decadron. Will initiate slow Solu-Medrol taper. Continue IV Zosyn. Continue supportive care. 02/26: Afebrile. On vent with FiO2 45%, PEEP 6. Completed 10 days of IV Decadron. Will continue IV Zosyn. Continue supportive care. Critical care time 30 minutes spent reviewing charts, reviewing imaging, reviewing labs, discussion with RN. 02/27: Afebrile. On vent with FiO2 45%, PEEP 6. Completed 10 days of steroids and completed remdesivir. Continue with IV Zosyn. CPAP trial yesterday. Continue NG tube and supportive care. 02/28:. Patient remains on vent with FiO2 40%, PEEP 5. Afebrile. Completed steroids and remdesivir. Some noted hypoglycemia overnight, will de-escalate basal insulin. Continue IV Zosyn. Ventilator management per pulmonology. Continue NG tube and supportive care. 03/01: On vent with FiO2 40%, PEEP 5. Afebrile. Completed steroids and remdesivir. Blood glucose well controlled. Continue empiric antibiotics with Zosyn. Ventilator management per pulmonology. Continue NG tube and supportive care. 03/02: No acute events overnight. Patient hypotensive the morning due to oversedation. Will wean off sedation and keep antihypertensive medications on board. Currently saturating 100% on vent settings of 18/450/40/5. Will attempt spontaneous breathing trial today to see how patient does. 03/03: No acute events overnight. Patient saturating 98% on vent settings of 18/450/40/5. Will defer spontaneous breathing trials to pulmonary at this time. Patient's chart, labs, images were reviewed and discussed with RN 03/04: No acute events overnight. Patient saturating 9 9% on vent settings of 18/450/30/5. Patient currently is unable to tolerate weaning. Per pulmonary. Patient's chart, labs, images were reviewed and discussed with RN 03/05: No acute events overnight. Patient is saturating 97% on vent settings of 18/450/55/5. Her FiO2 needs to be increased due to abnormal ABG with 7.3 //24. Patient's chart, labs, images were reviewed and discussed with RN 03/06: No acute events overnight. Patient saturating 94% on vent settings of 18/450/55/5. Chest x-ray showing increase in pulmonary infiltrates. Wound care is consulted for decubitus ulcer patient's chart, labs, images were reviewed and discussed with RN 03/07: No acute events overnight. Patient saturating 94% on vent settings of 20/450/70/8. Patient now heading into renal failure with her creatinine bumped up from 1.5-4.2. Decreased urine output. Plan for hemodialysis today and temporary catheter placement and nephrology is consulted. 03/08: No acute events overnight. Patient did have a nausea vomiting episode and tube feeds were held. KUB repeat shows NG tube still in the stomach. Will resume tube feeds at trickle and advance to goal today. Will start hemodialysis soon. 03/09: Seen on vent 20/450/60%/8. ABG 7.2 WBC 11.4, Hb 7.4, platelets 188, NA 131, K4.9, BUN 48, CR 51, glucose 199, phosphorus 7.9, mag 2.2, AST 265 ALT 219, albumin 1.1. Chest radiograph appears unchanged from prior. Dialysis x1 today 03/10: Afebrile. Seen on vent, 20/450/60/7 with ABG 7.3 . Tolerated dialysis well on 03/09. LFTs similar. 03/11: Afebrile. Seen on vent, sedated. Still requiring Levophed for BP support. WBC 16.7, Hb 8.1, NA 130, ABG 7.3 on 55% FiO2 PEEP 6. On Zosyn and Zyvox Diflucan. Dialysis today 03/12: Afebrile. Still requiring Levophed for BP support sedated with Versed febrile Precedex. WBC 16.1, Hb 8.5, platelets 185, NA 133. Trach plan tentatively 03/17. O2 saturations 93% on 50% FiO2 PEEP 6. ABG 7. On Zosyn and Zyvox Diflucan. 03/13: Afebrile. Still on Levophed for BP support lightly sedated. 7. on 45% FiO2. Plan for dialysis today. On Zosyn and Zyvox Diflucan. More swollen today. 03/14: Afebrile. Weaning down off Levophed. WBC 14.9 NA 132. O2 saturations 92% on 45% FiO2 PEEP 5. Afebrile. O2 saturations 91% on FiO2 45% PEEP 6. Continued on Zosyn and Zyvox Diflucan. Tentative trach planned 03/17/2021 CC time 31 minutes 03/16/21: Patient seen and examined in ICU. Periorbital as well as upper and lower extremity edema noted. OG feed running at 30cc/hr. Still on vent on pressure control with a rate of 24 with 45% FiO2. Patient has rectal bag. Currently she has 98% O2 sat. Currently sedated with Dexmedetomidine, Propofol, Versed, and Fentanyl. Discussed with RN. Chart reviewed. 03/17/21: Patient was seen and examined in the ICU today. Periorbital edema as well as abdominal and mons pubis edema was noted. Patient still on vent on pressure control with Fi02 of 45% plus 6 PEEP. Patient had rectal bag. Currently sedated on Dexmedetomidine, Propofol, Versed, and Fentanyl. Discussed with RN. Chart reviewed. 03/18/21: Patient seen and examined in ICU. On vent via trach that was placed yesterday. Vent settings are Pressure Control of 40 with FiO2 of 45% and 6 PEEP. Trach clean and dry. Orbital swelling still present. Pupils are sluggish. Patient on TPN running at 30cc/hr. Kern to bedside and rectal bag in place. Current O2 sat at 94%. Sedated on Dexmedetomidine, Propofol, Versed, and Fentanyl. Discussed with RN. Chart reviewed. 03/19/21: Patient was seen and examined in the ICU today. Currently on vent via trach on pressure control of 42, rate of 24, FiO2 of 45%, and 6 PEEP. O2 sat is at 97% while patient is being examined. Trach is clean and dry. PICC line is in place on right arm. Periorbital swelling has decreased slightly since examined yesterday. Patient is sedated on Dexmedetomidine, Propofol, Versed, and Fentanyl. Discussed with RN. Chart reviewed. 03/20/21: Patient seen and examined in the ICU. Periorbital edema is slightly decreased since yesterday. O2 sat while being examined was 93%. NG tube in place and running at 30cc/hr. Patient on vent via trach on pressure control of 40 with FiO2 of 45 and rate of 24. Sedated on Dexmedetomidine, Propofol, Versed, and Fentanyl. PICC line in place. Kern to bedside. Rectal bag present. Discussed with RN. Chart reviewed. 03/21/21: Patient was seen and examined in the ICU today. She was semi-sedated.. She was on Dexmedetomidine and Fentanyl. We are holding the Propofol. Her eyes were periodically open but she was not making meaningful eye contact or tracking. On vent via trach with pressure control of 40 and FiO2 at 45. Rate was 24. PEEP was 5. Trach was clean and dry. While being examined, her O2 sat was 94%. Rectal bag and Kern to bedside in place. NG tube in place and feeding at 30cc/hr. IV fluids still running. Levophed has been stopped. Discussed with RN. Chart reviewed. 03/22/21: Patient was seen and examined in the ICU. She was semi-sedated on Pr opofol and Dexmedetomidine. Her eyes were open but she did not make meaningful eye contact. Her blood pressure was elevated (198/102) while being examined and she had just been given hydralazine to lower it. There are plans to place a PEG tube tomorrow. Currently on vent via trach on pressure control of 40 with FiO2 of 45%, 5 PEEP, and a rate of 24. Current O2 sat is 98%. She is feeding through an NG tube at 30cc/hr. Rectal bag and Kern to bedside present. SCDs on patient for DVT prophylaxis. She did not do her daily dialysis today but the plan is to start back on that tomorrow. Discussed with RN. Chart reviewed. 03/23/2021: Patient remains in ICU on ventilator. FiO2 40%, PEEP 5. Trach cultures positive for [place] albicans and acinebacter ursungi. We will continue treatment with IV antibiotics and micafungin, per ID. HD per nephrology. Plans for PEG tube placement today. 30 minutes critical care time was spent reviewing charts, reviewing labs, reviewing imaging, discussion with RN. 03/24/2021: Afebrile. On vent with FiO2 45%, PEEP 5. Had attempted PEG placement per GI yesterday, but unable to locate safe path for PEG; will c onsider surgical opinion. Once PEG is in place she should be stable for LTAC transfer when accepted. Continue antibiotics, per ID. 30 minutes critical care time was spent reviewing charts, reviewing labs, reviewing imaging, discussion with RN. 03/25/2021: Febrile overnight with T-max 101.5 F. On vent with FiO2 45%, PEEP 5. Surgery has been consulted with tentative plans for laparoscopic versus open gastrostomy placement tomorrow. Trach cultures positive for [place] albicans and now acinebacter ursungi; will continue antibiotic management, per ID. Hemodialysis, per nephrology. Patient needing LTAC placement, but currently without benefits. sand control worker following for discharge planning. Critical care time 30 minutes spent reviewing charts, reviewing labs, reviewing imaging, discussion with RN. 03/26/2021: Febrile today with T-max 100.5 F. Awake on vent with FiO2 45%, PEEP 5. When I ask if she remembers any she nods. G-tube placement scheduled for tomorrow, per general surgery. Chest x-ray today showed slight interval increase in diffuse infiltrate. Continue antibiotic management, per ID. Hemodialysis per nephrology. Reportedly did not tolerate CPAP trial this morning. sand control worker following for LTAC placement. Critical care time 30 minutes spent reviewing charts, reviewing labs, reviewing imaging, discussion with RN. 03/27/2021: On vent with FiO2 45%, PEEP 5. Afebrile today. Continue treatment of acute renal failure requiring HD, per nephrology. Monitor kidney function for recovery. G-tube placement scheduled for today, per general surgery. Likely LTAC placement soon, but this is been a difficult as she is self-pay without benefits; director of social services following. Critical care time 30 minutes spent reviewing charts, reviewing labs, reviewing imaging, discussion with RN. 03/28/2021: Afebrile. On vent with FiO2 40%, PEEP 5. Had laparoscopic gastrosto my tube placed yesterday, per general surgery. Continue treatment of acute renal failure requiring HD, per nephrology. Continue IV antibiotics, per ID. Likely LTAC placement soon, but this is been a difficult as she is self-pay without benefits; director of social services following. Critical care time 30 minutes spent reviewing charts, reviewing labs, reviewing imaging, discussion with RN. 03/29/2021: Afebrile. On vent with FiO2 45%, PEEP 5. S/P laparoscopic gastrostomy tube; tube feeds running. HD, per nephrology. Continue meropenem, per ID. Anticipate LTAC placement soon now that PEG has being placed; director of social services helping in these regards. Critical care time 30 minutes spent reviewing charts, reviewing labs, reviewing imaging, discussion with RN. 03/30 No major events or clinical changes overnight. Patient evaluated at bedside this morning on trach and G-tube. Tolerating these well. Has been working on insurance for patient for placement as she will need long-term care. Guarded prognosis. Plan of care discussed with bedside nurse. 03/31 No major clinical changes. Remains trached. Sedated. Continue current plan. 04/01 No changes. Patient resting in bed when evaluated sedated. is supposed to be working on insurance for placement for the patient. Otherwise no changes. 04/02 Patient febrile overnight, daptomycin added this morning per infectious disease. Otherwise no major clinical changes. Awaiting insurance. Infectious disease, pulmonary and renal following. Plan of care discussed with bedside RN. 04/03 Patient undergoing dialysis today. Evaluated at bedside this morning. otherwise continue current plan. supposed working on insurance. 04/04 No major overnight changes. Continue current plan. 04/05 Patient notably more movement this morning eyes open resting in bed otherwise no major changes. Continue current plan. Insurance pending. 04/06 Patient notably more movement this morning eyes open resting in bed current plan. Insurance pending. Continue daptomycin, renal dosing April 02 F/U Blood culture UA urine culture C. diff PCR negative 32 min cc time 04/07 Patient notably more movement this morning eyes open resting in bed current plan. Insurance pending. Continue daptomycin, renal dosing April 02 F/U Blood culture UA urine culture C. diff PCR negative Abnormal chest x-ray consistent with COVID-19 viral pneumonia. Diabetic ketoacidosis--resolved obesity contributing to hypoxia as well. BOB . hemodialysis started 03/07 DVT GI prophylaxis Nutritional support 34 min cc time 04/08 Patient notably more movement this morning eyes open resting in bed current plan. Insurance pending. Continue daptomycin, renal dosing April 02 F/U Blood culture UA urine culture C. diff PCR negative s/p lap G-tube 03/27 Abnormal chest x-ray consistent with COVID-19 viral pneumonia. Diabetic ketoacidosis--resolved obesity contributing to hypoxia as well. BOB . hemodialysis started 03/07 DVT GI prophylaxis Nutritional support Right PICC line February 14 out; left PICC line 04/07/2021 Right IJ HDC clean March 07 32 min cc time 04/09 non Oliguric for past 112 -2 weeks , good response to IV NS bolus .requiring dialysis., currently on MWF schedule, tolerating trach shield well.using her speaking valve./ resting in bed current / states she feels better Start iv Zyvox Cont Meropenem DC daptomycin post PICC line exchange aspiration precautions C. diff PCR negative F/U Blood culture UA urine culture s/p lap G-tube 03/27 Abnormal chest x-ray consistent with COVID-19 viral pneumonia. Diabetic ketoacidosis--resolved obesity contributing to hypoxia as well. BOB . hemodialysis started 03/07 DVT GI prophylaxis Nutritional support Right PICC line February 14 out; left PICC line 04/07/2021 Right IJ HDC clean March 07 34 min cc time Vitals/I&O Vitals/I&O: Vital Signs Date Time Temp Pulse Resp B/P (MAP) Pulse Ox O2 Delivery O2 Flow Rate FiO2 04/20/21 11:24 94 Tracheal Collar 10.0 04/20/21 10:49 98.6 120 20 109/56 (73) 98.6 I & O 04/19/21 04/19/21 04/20/21 15:00 23:00 07:00 Intake Total 420 ml 850 ml Output Total 1650 ml Balance 420 ml -800 ml Physical Exam Physical Exam: GENERAL: Awake, alert in no acute distress HEENT: Normocephalic, atraumatic. Anicteric. Neck right IJ HDC clean Trach + capped LUNGS: Decreased breath sounds otherwise clear HEART: S1, S2. No murmurs. ABDOMEN: Obese, soft. Bowel sounds present. Nontender, nondistended. PEG tube pulled out by patient EXTREMITIES: Edema present no cyanosis. CENTRAL NERVOUS SYSTEM: Intubated. PSYCHIATRIC: Confused Derm has pressure wounds wound pictures noted in chart. Generalized rash, Right PICC line removed; left PICC line 04/07/2021 Right IJ HDC clean March 07 General: Alert, Oriented X3, Cooperative Heart: Regular rate, Normal S1, Normal S2 Lungs: Crackles Abdomen: Soft, Other (ND) Extremities: No cyanosis, Other (ANASARCA) Skin: No rashes, No significant lesion Labs Labs: Laboratory Tests Test 04/19/21 16:14 04/19/21 21:12 04/20/21 06:10 04/20/21 07:23 Glucose (Fingerstick) 282 mg/dL (70-99) 175 mg/dL (70-99) 200 mg/dL (70-99) Sodium Level 131 mmol/L (136-145) Potassium Level 3.9 mmol/L (3.5-5.1) Chloride Level 96 mmol/L (98-107) Carbon Dioxide Level 29 mmol/L (21-32) Anion Gap 6 (6-14) Blood Urea Nitrogen 23 mg/dL (7-20) Creatinine 1.8 mg/dL (0.6-1.0) Estimated GFR (Cockcroft-Gault) 30.4 Glucose Level 191 mg/dL (70-99) Calcium Level 8.5 mg/dL (8.5-10.1) Test 04/20/21 11:14 Glucose (Fingerstick) 358 mg/dL (70-99) Assessment and Plan Assessmemt and Plan Problems Medical Problems: (1) Ketoacidosis Status: Acute Comment Review of Relevant I have reviewed the following items mazin (where applicable) has been applied. Medications: Current Medications Medications (Trade) Dose Ordered Sig/Pepe Route PRN Reason Start Time Stop Time Status Last Admin Dose Admin Insulin Human Lispro (HumaLOG) 0-9 UNITS TIDACHC SQ 04/19/21 19:45 04/20/21 12:00 Diphenhydramine HCl (Benadryl Oral Elixir) 25 mg PRN Q6HRS PRN PEG ITCHING 04/20/21 09:45 04/20/21 10:21 Justifications for Admission Other Justification SANDI ALCARAZ MD Apr 20, 2021 15:00
--- NOTE | 2021-04-20 15:28 | NUR ---
SS following up with discharge planning. SS reviewed pt chart and discussed with pt RN. Pt is currently on room air. Pt on PO diet. Trach in place. COVID19 recovered. PT/OT continuing to work with pt and currently recommending acute rehabilitation. Self pay. Med Assist following. SS will continue to follow for discharge planning.
[2021-04-20 19:40] VITALS: BP 185/86
[2021-04-20] MEDS: ATORVASTATIN CALCIUM 40 MG TABLET. PO SCH (21:18)
[2021-04-20] MEDS: ONDANSETRON PF 4 MG/2 ML VIAL. IVP PRN (21:19)
[2021-04-20] MEDS: hydrALAZINE 20 MG/ML VIAL. IVP PRN (21:19)
[2021-04-20 23:10] VITALS: BP 133/62
[2021-04-21 02:45] VITALS: BP 117/57
[2021-04-21 06:06] LABS: CALCIUM 8.9 mg/dL (8.5-10.1); CREATININE 1.8 mg/dL (0.6-1.0); GFR 30.4; POTASSIUM 3.6 mmol/L (3.5-5.1)
[2021-04-21 07:00] VITALS: BP 133/68
[2021-04-21] MEDS: HEPARIN for SUB-Q USE 5,000 UNIT/ML VIAL. SQ SCH ×3 (07:24→20:26)
[2021-04-21] MEDS: IPRATRPIUM/ALBUTEROL 0.5/2.5MG 3 ML NEBU. NEB SCH ×4 (08:00→20:42)
[2021-04-21] MEDS: FAMOTIDINE 20 MG/2 ML VIAL IVP SCH (08:46)
[2021-04-21] MEDS: INSULIN LISPRO 300 UNITS/3 ML VIAL. SQ SCH ×4 (08:56→21:12)
--- NOTE | 2021-04-21 08:56 | PDOC ---
PULMONARY PROGRESS NOTES DATE: 04/21/21 TIME: 08:56 Subjective Marissa is not more short of breath She is able to speak with trach in place without a [place] valve Vitals Vital Signs Date Time Temp Pulse Resp B/P (MAP) Pulse Ox O2 Delivery O2 Flow Rate FiO2 04/21/21 08:00 97 Room Air 04/21/21 07:00 99.3 115 18 133/68 (89) 99.3 04/20/21 16:38 ROS: No Nausea, No Chest Pain, No Abdominal Pain, No Increase Cough Lungs: Crackles Cardiovascular: S1 Abdomen: Soft, Non-tender Neuro Exam: Alert, Normal Speech Skin: Warm Labs Laboratory Tests Test 04/19/21 12:08 04/19/21 16:14 04/19/21 21:12 04/20/21 06:10 Glucose (Fingerstick) 445 mg/dL (70-99) 282 mg/dL (70-99) 175 mg/dL (70-99) Sodium Level 131 mmol/L (136-145) Potassium Level 3.9 mmol/L (3.5-5.1) Chloride Level 96 mmol/L (98-107) Carbon Dioxide Level 29 mmol/L (21-32) Anion Gap 6 (6-14) Blood Urea Nitrogen 23 mg/dL (7-20) Creatinine 1.8 mg/dL (0.6-1.0) Estimated GFR (Cockcroft-Gault) 30.4 Glucose Level 191 mg/dL (70-99) Calcium Level 8.5 mg/dL (8.5-10.1) Test 04/20/21 07:23 04/20/21 11:14 04/20/21 16:22 04/20/21 21:05 Glucose (Fingerstick) 200 mg/dL (70-99) 358 mg/dL (70-99) 197 mg/dL (70-99) 328 mg/dL (70-99) Test 04/21/21 05:30 04/21/21 07:47 Sodium Level 133 mmol/L (136-145) Potassium Level 3.6 mmol/L (3.5-5.1) Chloride Level 95 mmol/L (98-107) Carbon Dioxide Level 28 mmol/L (21-32) Anion Gap 10 (6-14) Blood Urea Nitrogen 21 mg/dL (7-20) Creatinine 1.8 mg/dL (0.6-1.0) Estimated GFR (Cockcroft-Gault) 30.4 Glucose Level 208 mg/dL (70-99) Calcium Level 8.9 mg/dL (8.5-10.1) Glucose (Fingerstick) 214 mg/dL (70-99) Laboratory Tests Test 04/20/21 11:14 04/20/21 16:22 04/20/21 21:05 04/21/21 05:30 Glucose (Fingerstick) 358 mg/dL (70-99) 197 mg/dL (70-99) 328 mg/dL (70-99) Sodium Level 133 mmol/L (136-145) Potassium Level 3.6 mmol/L (3.5-5.1) Chloride Level 95 mmol/L (98-107) Carbon Dioxide Level 28 mmol/L (21-32) Anion Gap 10 (6-14) Blood Urea Nitrogen 21 mg/dL (7-20) Creatinine 1.8 mg/dL (0.6-1.0) Estimated GFR (Cockcroft-Gault) 30.4 Glucose Level 208 mg/dL (70-99) Calcium Level 8.9 mg/dL (8.5-10.1) Test 04/21/21 07:47 Glucose (Fingerstick) 214 mg/dL (70-99) Medications Active Scripts Medications Dose Route/Sig Max Daily Dose Days Date Category Novolog Flexpen (Insulin Aspart) 100 Unit/1 Ml Insuln.pen 3-7 SQ TIDACHC 02/07/21 Reported Lisinopril 5 Mg Tablet 1 Tab PO DAILY 02/07/21 Reported Lantus Solostar (Insulin Glargine,Hum.rec.anlog) 100 Unit/1 Ml Insuln.pen 5 Unit SQ QHS 04/09/15 Reported Atorvastatin Calcium 40 Mg Tablet 40 Mg PO HS 04/09/15 Reported Impression . IMPRESSION: 1. Acute hypoxic respiratory failure secondary to COVID-19 viral pneumonia/acute lung injury and early acute respiratory distress syndrome. S/P intubation 02/17/21. Status post tracheostomy. 2. Nonsmoker. 3. Abnormal chest x-ray consistent with COVID-19 viral pneumonia. 4. Diabetic ketoacidosis--resolved 5. Underlying obesity contributing to hypoxia as well. 6. BOB . hemodialysis started 03/07 7. Fever, 30 ID 8. Abnormal chest x-ray with diffuse interstitial infiltrates compatible with viral pneumonia 9. [place] in the sputum is a contamination 10. Septic shoc 11. s/p lap G-tube 03/27 12. Delirium Plan . Updated 04/21 Discussed with RT will change to 6 Shiley I occluded her current trach tube, patient was having difficulty breathing Will change to a 6 Shiley, smaller trach tube, hopefully she will be able to tolerate capping updated 04/20 Continue current care We will discussed with RT Trach shield for now updated 04/17 Patient asleep I did not wake her up Continue current support On visual inspection no respiratory distress was noted MONTEZ OROPEZA MD Apr 21, 2021 08:56
--- NOTE | 2021-04-21 09:57 | PDOC ---
[facility] [facility] PROGRESS NOTE Date of Service DOS: DATE: 04/21/21 TIME: 09:51 Chief Complaint Chief Complaint COVID-19 acute hypoxic respiratory failure DKA Hypotension Nausea Vomiting Combined metabolic and respiratory acidosis Acute electrolyte derangementhyponatremia, hypochloremia due to volume deple tion Hyperglycemia BOB due to ATN, requiring dialysis Erythrocytosis Candiduria Sacral decubitus ulcer S/P Trach on (03/17/21) Trach cultures positive for [place] albicans and now acinebacter ursungi History of Present Illness History of Present Illness 04/21: Afebrile, resting comfortably in bed. Kidney function remained stable, creatinine 1.8, eGFR 30.4. I believe plans per nephrology are to remove HD line today. We will continue to monitor off antibiotics. statement services representative working with to help with emergency Medicare. 04/20: Afebrile, breathing on 10 L trach shield. Had some itching today; ordered as needed Benadryl. Kidney function improved and appears to be stable. Per nephrology, possible HD line removal tomorrow. Per ID, will monitor off antibiotics. 04/19 Patient evaluated and examined at bedside. Sugars pretty high today will need more insulin adjustments. On trach collar when I saw her. Continue diet as tolerated. Discussed with at bedside. Diet as tolerated. Working towards discharge. Continue antibiotics. Will ask renal if temporary HD catheter is still needed if not can remove. 04/18 Patient evaluated examined at bedside. She was on trach collar. Continue regular diet as tolerated. Monitoring blood pressure. Working towards discharge. 04/17 Patient evaluated and examined at bedside. She is pretty alert today. Underwent video swallow study earlier and cleared for regular diet with thin liquids. Definite improvement for her. On trach collar when I saw her. Continue current treatments. Watch blood pressure. If she well keep up a consistent amount of p.o. intake may be able to stop tube feeds and PEG tube removal. But this is far down the line. 04/16 Patient seen examined at bedside. Transfer out of the ICU yesterday. Speech therapy to evaluate this morning. Improved notably since I last saw her in the ICU. Continue PEG feeds. Blood pressure treatment. Plan of care discussed with bedside RN. 04/15/2021 Patient seen and examined in the ICU She has clean dry intact tracheostomy with trach shield PEG feeds running at 30 cc an hour She really wants to drink water I told her that we are awaiting speech therapy to reevaluate her Chart reviewed Discussed with RN 04/14/2021 Patient seen and examined in the ICU She remains pleasantly confused Has a new PEG in place Discussed with physical therapy Discussed with RN Chart reviewed 04/13/2021 Patient seen and examined in the ICU She is pleasantly confused Sedated with Precedex and fentanyl I discussed with the speech therapist the patient has no laryngeal movement Now she is n.p.o. again Going for new PEG placement in interventional radiology hopefully later today Her trach is clean Chart reviewed Discussed with RN 04/12/2021 Patient seen and examined in the ICU Her is present today and seems to be good support for her Chart reviewed Discussed with RN Still sedated with Precedex and fentanyl but awake 04/11/2021 Patient seen and examined in the ICU She remains quite confused currently sedated Chart reviewed Discussed with RN Had some nausea vomiting last night Pulled out her PEG yesterday Currently on fentanyl and Precedex IV Zyvox hanging 04/10/2021 Patient seen and examined in the ICU She is pleasantly confused Has a trach shield in place Discussed with RN Chart reviewed We are adding in some as needed Ativan and scheduled Prozac Ms Borges is a 46 year old female who presented with nausea/vomiting since 7 AM 02/06/2021 in the morning. Patient stated that her recently tested positive for Covid. She states that he "coughed in my face because he thought it was funny." She reports subjective fevers and chills and nausea/vomiting. Denies sore throat, cough, shortness of breath. No chest pain. Does have some upper abdominal discomfort after vomiting, that she attributes to muscular strain. She was not vaccinated for Covid. 02/08: No acute events overnight. Patient seen and examined bedside and resting comfortably. Continues to complain of nausea not able to tolerate any diet at this time. Saturating 98% on room air. Patient's chart, labs, images were reviewed and discussed with RN 02/09: Afebrile, currently breathing on room air. Still with complaints of nausea and vomiting x3 today. States that she has history of similar symptoms that have been mildly improved with IV Dilaudid. 02/10: Patient febrile today with T-max 102.2 F. She still admits to nausea, denies any further vomiting. We will continue to provide supportive care and monitor for any recurrent fevers overnight. Patient continues to improve may discharge tomorrow to continue self-isolation. 02/11: Febrile overnight, T-max 102.3 F. She did become hypoxic overnight, currently breathing on 4 L nasal cannula. Also admits to associated vomiting or diarrhea overnight. Discussed with RN, will initiate remdesivir and closely monitor LFTs. IV Decadron, and prophylactic antibiotics. 02/12: Low-grade fever overnight, T-max 99.7. Currently breathing on room air. Will discontinue remdesivir, steroids, and antibiotics; will observe overnight. Still with complaints of vomiting x1 and diarrhea. We will continue to provide supportive care and hope to discharge in the next day or so. 02/13: Afebrile. Still complains of intermittent diarrhea. At the time of my evaluation she was breathing on 6 L nasal cannula; this is somewhat misleading as patient states that she did not feel short of breath but was placed on 6 L by nursing staff overnight. 02/14: Afebrile, currently breathing on 8 L nasal cannula. There has been some misleading documentation, chart oxygen this patient is requiring. Discussed with RN, will resume remdesivir to complete total of 5 days. Continue to monitor LFTs. Will add steroids, Rocephin, and azithromycin. 02/15: Afebrile. Became much more hypoxic overnight, requiring BiPAP. At the time of my evaluation she is still breathing on BiPAP. Consultation was placed to pulmonology. Had discussion with Dr. Myrick about initiating Tocilizumab 02/16: No acute events overnight. Patient becoming more hypoxic saturating 94% and requiring BiPAP. Patient will be transferred to the ICU at this time. For worsening clinical status. Discussed with pulmonary. Patient's chart, labs, images were reviewed and discussed with RN 02/17: Transferred to ICU yesterday afternoon. Seen and examined at bedside she remains on 100% FiO2 on BiPAP. Respirations do appear somewhat labored. Suspect intubation may be impending. We will closely monitor. Increase lisinopril to 20 today. 02/18: Patient required intubation yesterday afternoon. Saw and examined this morning. She is intubated and sedated. Increase insulin today. Covid protocol ordered. Wean as tolerated. Plan of care discussed with bedside nurse. 02/19: Bedside. She remains intubated and sedated. Continue Covid protocol. Wean oxygen sedation as tolerated. Pulmonary following. Plan of care discussed with bedside RN. 02/20: Patient seen and examined at bedside. She remains intubated and sedated. No major clinical changes. Continue current treatment. Pulmonary following. P sherrell of care discussed with bedside RN. 02/21: Patient seen and examined at bedside. Remains intubated and sedated date and admission clinical changes. Increase free water flushes today due to hypernatremia. Plan of care discussed with bedside nurse. 02/22: Patient seen and examined at bedside. O2 requirement actually improving, although remains intubated. Possible SBT in the coming days. Hypernatremia improving. Plan of care discussed bedside RN. 02/23: Patient remains in ICU on ventilator with FiO2 100%, PEEP 7. Repeat chest x-ray yesterday showed diffuse bilateral pulmonary opacities with no interval improvement. Will discontinue Rocephin and initiate Zosyn. We will continue IV steroids for a full 10-day course 02/24: Afebrile. On vent with FiO2 40%, PEEP 6. Her Coreg has been held due to persistent bradycardia. No documented history of systolic heart failure or previous echocardiogram. Will need to obtain echocardiogram prior to discharge. Continue IV steroids and antibiotics. 02/25: Afebrile. Remains ventilated with FiO2 45%, PEEP 6. Chest x-ray today showed slight improvement of the pulmonary infiltrates, no pneumothorax. Completed 10-day course of IV Decadron. Will initiate slow Solu-Medrol taper. Continue IV Zosyn. Continue supportive care. 02/26: Afebrile. On vent with FiO2 45%, PEEP 6. Completed 10 days of IV Decadron. Will continue IV Zosyn. Continue supportive care. Critical care time 30 minutes spent reviewing charts, reviewing imaging, reviewing labs, discussion with RN. 02/27: Afebrile. On vent with FiO2 45%, PEEP 6. Completed 10 days of steroids and completed remdesivir. Continue with IV Zosyn. CPAP trial yesterday. Continue NG tube and supportive care. 02/28:. Patient remains on vent with FiO2 40%, PEEP 5. Afebrile. Completed steroids and remdesivir. Some noted hypoglycemia overnight, will de-escalate basal insulin. Continue IV Zosyn. Ventilator management per pulmonology. Continue NG tube and supportive care. 03/01: On vent with FiO2 40%, PEEP 5. Afebrile. Completed steroids and remdesivir. Blood glucose well controlled. Continue empiric antibiotics with Zosyn. Ventilator management per pulmonology. Continue NG tube and supportive care. 03/02: No acute events overnight. Patient hypotensive the morning due to oversedation. Will wean off sedation and keep antihypertensive medications on board. Currently saturating 100% on vent settings of 18/450/40/5. Will attempt spontaneous breathing trial today to see how patient does. 03/03: No acute events overnight. Patient saturating 98% on vent settings of 18/450/40/5. Will defer spontaneous breathing trials to pulmonary at this time. Patient's chart, labs, images were reviewed and discussed with RN 03/04: No acute events overnight. Patient saturating 9 9% on vent settings of 18/450/30/5. Patient currently is unable to tolerate weaning. Per pulmonary. Patient's chart, labs, images were reviewed and discussed with RN 03/05: No acute events overnight. Patient is saturating 97% on vent settings of 18/450/55/5. Her FiO2 needs to be increased due to abnormal ABG with 7.3 /24. Patient's chart, labs, images were reviewed and discussed with RN 03/06: No acute events overnight. Patient saturating 94% on vent settings of 18/450/55/5. Chest x-ray showing increase in pulmonary infiltrates. Wound care is consulted for decubitus ulcer patient's chart, labs, images were reviewed and discussed with RN 03/07: No acute events overnight. Patient saturating 94% on vent settings of 20/450/70/8. Patient now heading into renal failure with her creatinine bumped up from 1.5-4.2. Decreased urine output. Plan for hemodialysis today and temporary catheter placement and nephrology is consulted. 03/08: No acute events overnight. Patient did have a nausea vomiting episode and tube feeds were held. KUB repeat shows NG tube still in the stomach. Will resume tube feeds at trickle and advance to goal today. Will start hemodialysis soon. 03/09: Seen on vent 20/450/60%/8. ABG 7.2 8/38/92 WBC 11.4, Hb 7.4, platelets 188, NA 131, K4.9, BUN 48, CR 51, glucose 199, phosphorus 7.9, mag 2.2, AST 265 ALT 219, albumin 1.1. Chest radiograph appears unchanged from prior. Dialysis x1 today 03/10: Afebrile. Seen on vent, 20/450/60/7 with ABG 7.3 . Tolerated dialysis well on 03/09. LFTs similar. 03/11: Afebrile. Seen on vent, sedated. Still requiring Levophed for BP support. WBC 16.7, Hb 8.1, NA 130, ABG 7.3 on 55% FiO2 PEEP 6. On Zosyn and Zyvox Diflucan. Dialysis today 03/12: Afebrile. Still requiring Levophed for BP support sedated with Versed febrile Precedex. WBC 16.1, Hb 8.5, platelets 185, NA 133. Trach plan tentatively 03/17. O2 saturations 93% on 50% FiO2 PEEP 6. ABG 7./ On Zosyn and Zyvox Diflucan. 03/13: Afebrile. Still on Levophed for BP support lightly sedated. 7. on 45% FiO2. Plan for dialysis today. On Zosyn and Zyvox Diflucan. More swollen today. 03/14: Afebrile. Weaning down off Levophed. WBC 14.9 NA 132. O2 saturations 92% on 45% FiO2 PEEP 5. Afebrile. O2 saturations 91% on FiO2 45% PEEP 6. Continued on Zosyn and Zyvox Diflucan. Tentative trach planned 03/17/2021 CC time 31 minutes 03/16/21: Patient seen and examined in ICU. Periorbital as well as upper and lower extremity edema noted. OG feed running at 30cc/hr. Still on vent on pressure control with a rate of 24 with 45% FiO2. Patient has rectal bag. Currently she has 98% O2 sat. Currently sedated with Dexmedetomidine, Propofol, Versed, and Fentanyl. Discussed with RN. Chart reviewed. 03/17/21: Patient was seen and examined in the ICU today. Periorbital edema as well as abdominal and mons pubis edema was noted. Patient still on vent on pressure control with Fi02 of 45% plus 6 PEEP. Patient had rectal bag. Currently sedated on Dexmedetomidine, Propofol, Versed, and Fentanyl. Discussed with RN. Chart reviewed. 03/18/21: Patient seen and examined in ICU. On vent via trach that was placed yesterday. Vent settings are Pressure Control of 40 with FiO2 of 45% and 6 PEEP. Trach clean and dry. Orbital swelling still present. Pupils are sluggish. Patient on TPN running at 30cc/hr. Kern to bedside and rectal bag in place. Current O2 sat at 94%. Sedated on Dexmedetomidine, Propofol, Versed, and Fentanyl. Discussed with RN. Chart reviewed. 03/19/21: Patient was seen and examined in the ICU today. Currently on vent via trach on pressure control of 42, rate of 24, FiO2 of 45%, and 6 PEEP. O2 sat is at 97% while patient is being examined. Trach is clean and dry. PICC line is in place on right arm. Periorbital swelling has decreased slightly since examined yesterday. Patient is sedated on Dexmedetomidine, Propofol, Versed, and Fentanyl. Discussed with RN. Chart reviewed. 03/20/21: Patient seen and examined in the ICU. Periorbital edema is slightly decreased since yesterday. O2 sat while being examined was 93%. NG tube in place and running at 30cc/hr. Patient on vent via trach on pressure control of 40 with FiO2 of 45 and rate of 24. Sedated on Dexmedetomidine, Propofol, Versed, and Fentanyl. PICC line in place. Kern to bedside. Rectal bag present. Discussed with RN. Ch art reviewed. 03/21/21: Patient was seen and examined in the ICU today. She was semi-sedated.. She was on Dexmedetomidine and Fentanyl. We are holding the Propofol. Her eyes were periodically open but she was not making meaningful eye contact or tracking. On vent via trach with pressure control of 40 and FiO2 at 45. Rate was 24. PEEP was 5. Trach was clean and dry. While being examined, her O2 sat was 94%. Rectal bag and Kern to bedside in place. NG tube in place and feeding at 30cc/hr. IV fluids still running. Levophed has been stopped. Discussed with RN. Chart reviewed. 03/22/21: Patient was seen and examined in the ICU. She was semi-sedated on Propofol and Dexmedetomidine. Her eyes were open but she did not make meaningful eye contact. Her blood pressure was elevated (198/102) while being examined and she had just been given hydralazine to lower it. There are plans to place a PEG tube tomorrow. Currently on vent via trach on pressure control of 40 with FiO2 of 45%, 5 PEEP, and a rate of 24. Current O2 sat is 98%. She is feeding through an NG tube at 30cc/hr. Rectal bag and Kern to bedside present. SCDs on patient for DVT prophylaxis. She did not do her daily dialysis today but the plan is to start back on that tomorrow. Discussed with RN. Chart reviewed. 03/23/2021: Patient remains in ICU on ventilator. FiO2 40%, PEEP 5. Trach cultures positive for [place] albicans and acinebacter ursungi. We will continue treatment with IV antibiotics and micafungin, per ID. HD per nephrology. Plans for PEG tube placement today. 30 minutes critical care time was spent reviewing charts, reviewing labs, reviewing imaging, discussion with RN. 03/24/2021: Afebrile. On vent with FiO2 45%, PEEP 5. Had attempted PEG placement per GI yesterday, but unable to locate safe path for PEG; will consider surgical opinion. Once PEG is in place she should be stable for LTAC transfer when accepted. Continue antibiotics, per ID. 30 minutes critical care time was spent reviewing charts, reviewing labs, reviewing imaging, discussion with RN. 03/25/2021: Febrile overnight with T-max 101.5 F. On vent with FiO2 45%, PEEP 5. Surgery has been consulted with tentative plans for laparoscopic versus open gastrostomy placement tomorrow. Trach cultures positive for [place] albicans and now acinebacter ursungi; will continue antibiotic management, per ID. Hemodialysis, per nephrology. Patient needing LTAC placement, but currently without benefits. calender worker helper following for discharge planning. Critical care time 30 minutes spent reviewing charts, reviewing labs, reviewing imaging, discussion with RN. 03/26/2021: Febrile today with T-max 100.5 F. Awake on vent with FiO2 45%, PEEP 5. When I ask if she remembers any she nods. G-tube placement scheduled for tomorrow, per general surgery. Chest x-ray today showed slight interval increase in diffuse infiltrate. Continue antibiotic management, per ID. Hem odialysis per nephrology. Reportedly did not tolerate CPAP trial this morning. calender worker helper following for LTAC placement. Critical care time 30 minutes spent reviewing charts, reviewing labs, reviewing imaging, discussion with RN. 03/27/2021: On vent with FiO2 45%, PEEP 5. Afebrile today. Continue treatment of acute renal failure requiring HD, per nephrology. Monitor kidney function for recovery. G-tube placement scheduled for today, per general surgery. Likely LTAC placement soon, but this is been a difficult as she is self-pay without benefits; rn social services following. Critical care time 30 minutes spent reviewing charts, reviewing labs, reviewing imaging, discussion with RN. 03/28/2021: Afebrile. On vent with FiO2 40%, PEEP 5. Had laparoscopic gastrostomy tube placed yesterday, per general surgery. Continue treatment of acute renal failure requiring HD, per nephrology. Continue IV antibiotics, per ID. Likely LTAC placement soon, but this is been a difficult as she is self-pay without benefits; rn social services following. Critical care time 30 minutes spent reviewing charts, reviewing labs, reviewing imaging, discussion with RN. 03/29/2021: Afebrile. On vent with FiO2 45%, PEEP 5. S/P laparoscopic gastrostomy tube; tube feeds running. HD, per nephrology. Continue meropenem, per ID. Anticipate LTAC placement soon now that PEG has being placed; social w orker helping in these regards. Critical care time 30 minutes spent reviewing charts, reviewing labs, reviewing imaging, discussion with RN. 03/30 No major events or clinical changes overnight. Patient evaluated at bedside this morning on trach and G-tube. Tolerating these well. Has been working on insurance for patient for placement as she will need long-term care. Guarded prognosis. Plan of care discussed with bedside nurse. 03/31 No major clinical changes. Remains trached. Sedated. Continue current plan. 04/01 No changes. Patient resting in bed when evaluated sedated. is supposed to be working on insurance for placement for the patient. Otherwise no changes. 04/02 Patient febrile overnight, daptomycin added this morning per infectious disease. Otherwise no major clinical changes. Awaiting insurance. Infectious disease, pulmonary and renal following. Plan of care discussed with bedside RN. 04/03 Patient undergoing dialysis today. Evaluated at bedside this morning. otherwise continue current plan. supposed working on insurance. 04/04 No major overnight changes. Continue current plan. 04/05 Patient notably more movement this morning eyes open resting in bed otherwise no major changes. Continue current plan. Insurance pending. 04/06 Patient notably more movement this morning eyes open resting in bed current plan. Insurance pending. Continue daptomycin, renal dosing April 02 F/U Blood culture UA urine culture C. diff PCR negative 32 min cc time 04/07 Patient notably more movement this morning eyes open resting in bed current plan. Insurance pending. Continue daptomycin, renal dosing April 02 F/U Blood culture UA urine culture C. diff PCR negative Abnormal chest x-ray consistent with COVID-19 viral pneumonia. Diabetic ketoacidosis--resolved obesity contributing to hypoxia as well. BOB . hemodialysis started 03/07 DVT GI prophylaxis Nutritional support 34 min cc time 04/08 Patient notably more movement this morning eyes open resting in bed current plan. Insurance pending. Continue daptomycin, renal dosing April 02 F/U Blood culture UA urine culture C. diff PCR negative s/p lap G-tube 03/27 Abnormal chest x-ray consistent with COVID-19 viral pneumonia. Diabetic ketoacidosis--resolved obesity contributing to hypoxia as well. BOB . hemodialysis started 03/07 DVT GI prophylaxis Nutritional support Right PICC line February 14; left PICC line 04/07/2021 Right IJ HDC clean March 07 32 min cc time 04/09 non Oliguric for past 11/2 -2 weeks , good response to IV NS bolus .requiring dialysis., currently on MWF schedule, tolerating trach shield well.using her speaking valve./ resting in bed current / states she feels better Start iv Zyvox Cont Meropenem DC daptomycin post PICC line exchange aspiration precautions C. diff PCR negative F/U Blood culture UA urine culture s/p lap G-tube 03/27 Abnormal chest x-ray consistent with COVID-19 viral pneumonia. Diabetic ketoacidosis--resolved obesity contributing to hypoxia as well. BOB . hemodialysis started 03/07 DVT GI prophylaxis Nutritional support Right PICC line February 14; left PICC line 04/07/2021 Right IJ HDC clean March 07 34 min cc time Vitals/I&O Vitals/I&O: Vital Signs Date Time Temp Pulse Resp B/P (MAP) Pulse Ox O2 Delivery O2 Flow Rate FiO2 04/21/21 08:00 97 Room Air 04/21/21 07:00 99.3 115 18 133/68 (89) 99.3 04/20/21 16:38 I & O 04/20/21 04/20/21 04/21/21 15:00 23:00 07:00 Intake Total 600 ml 100 ml 1010 ml Output Total 1000 ml 2450 ml Balance -400 ml 100 ml -1440 ml Physical Exam Physical Exam: GENERAL: Awake, alert in no acute distress HEENT: Normocephalic, atraumatic. Anicteric. Neck right IJ HDC clean Trach + capped LUNGS: Decreased breath sounds otherwise clear HEART: S1, S2. No murmurs. ABDOMEN: Obese, soft. Bowel sounds present. Nontender, nondistended. PEG tube pulled out by patient EXTREMITIES: Edema present no cyanosis. CENTRAL NERVOUS SYSTEM: Intubated. PSYCHIATRIC: Confused Derm has pressure wounds wound pictures noted in chart. Generalized rash, Right PICC line removed; left PICC line 04/07/2021 Right IJ HDC clean March 07 General: Alert, Oriented X3, Cooperative Heart: Regular rate, Normal S1, Normal S2 Lungs: Crackles Abdomen: Soft, Other (ND) Extremities: No cyanosis, Other (ANASARCA) Skin: No rashes, No significant lesion Labs Labs: Laboratory Tests Test 04/20/21 11:14 04/20/21 16:22 04/20/21 21:05 04/21/21 05:30 Glucose (Fingerstick) 358 mg/dL (70-99) 197 mg/dL (70-99) 328 mg/dL (70-99) Sodium Level 133 mmol/L (136-145) Potassium Level 3.6 mmol/L (3.5-5.1) Chloride Level 95 mmol/L (98-107) Carbon Dioxide Level 28 mmol/L (21-32) Anion Gap 10 (6-14) Blood Urea Nitrogen 21 mg/dL (7-20) Creatinine 1.8 mg/dL (0.6-1.0) Estimated GFR (Cockcroft-Gault) 30.4 Glucose Level 208 mg/dL (70-99) Calcium Level 8.9 mg/dL (8.5-10.1) Test 04/21/21 07:47 Glucose (Fingerstick) 214 mg/dL (70-99) Assessment and Plan Assessmemt and Plan Problems Medical Problems: (1) Ketoacidosis Status: Acute Comment Review of Relevant I have reviewed the following items mazin (where applicable) has been applied. Justifications for Admission Other Justification SANDI ALCARAZ MD Apr 21, 2021 09:57
--- NOTE | 2021-04-21 10:06 | PDOC ---
Infectious Disease Note Subjective Subjective Patient without complaints ROS ROS No nausea vomiting diarrhea Vital Sign Vital Signs Vital Signs Date Time Temp Pulse Resp B/P (MAP) Pulse Ox O2 Delivery O2 Flow Rate FiO2 04/21/21 08:00 97 Room Air 04/21/21 07:00 99.3 115 18 133/68 (89) 99.3 04/20/21 16:38 Physical Exam PHYSICAL EXAM GENERAL: Awake, alert in no acute distress HEENT: Normocephalic, atraumatic. Anicteric. Neck right IJ HDC clean Trach + capped LUNGS: Decreased breath sounds otherwise clear HEART: S1, S2. No murmurs. ABDOMEN: Obese, soft. Bowel sounds present. Nontender, nondistended. PEG tube pulled out by patient EXTREMITIES: Edema present no cyanosis. CENTRAL NERVOUS SYSTEM: Intubated. PSYCHIATRIC: Confused Derm has pressure wounds wound pictures noted in chart. Generalized rash, Right PICC line removed; left PICC line 04/07/2021 Right IJ HDC clean March 07 Labs Lab Laboratory Tests Test 04/20/21 11:14 04/20/21 16:22 04/20/21 21:05 04/21/21 05:30 Glucose (Fingerstick) 358 mg/dL (70-99) 197 mg/dL (70-99) 328 mg/dL (70-99) Sodium Level 133 mmol/L (136-145) Potassium Level 3.6 mmol/L (3.5-5.1) Chloride Level 95 mmol/L (98-107) Carbon Dioxide Level 28 mmol/L (21-32) Anion Gap 10 (6-14) Blood Urea Nitrogen 21 mg/dL (7-20) Creatinine 1.8 mg/dL (0.6-1.0) Estimated GFR (Cockcroft-Gault) 30.4 Glucose Level 208 mg/dL (70-99) Calcium Level 8.9 mg/dL (8.5-10.1) Test 04/21/21 07:47 Glucose (Fingerstick) 214 mg/dL (70-99) Micro GRAM STAIN EVALUATION Final Final This specimen is of good quality and is acceptable for routine bacterial culture. Culture results to follow. NO ORGANISMS SEEN. SQUAMOUS EPI CELL:RARE PMN (WBCs):MODERATE Unless otherwise specified, Testing Performed by: [address] [address] For Inquires, the Physician may contact the Microbiology department at [phone] RESPIRATORY CULTURE Final Final MODERATE GRAM NEGATIVE RODS on 03/18/21 at 1120 FINAL ID= [ACINETOBACTER [id number].] ACINETOBACTER GINAINGII. ANTIMICROBIAL SUSCEPTIBILITY Final Comment NEG SAGE 56 ACINETOBACTER GINAINGII. ANTIBIOTIC RESULT INTERPRETATION AMPICILLIN/SULBACTAM <=4/2 S AMIKACIN <=16 S CEFTRIAXONE 2 S CEFTAZIDIME 16 I CEFOTAXIME 16 I CIPROFLOXACIN <=0.25 S CEFEPIME 4 S GENTAMICIN <=2 S LEVOFLOXACIN <=0.5 S --------- --- RUN DATE: 03/19/21 [facility] *LIVE* PAGE 2 RUN TIME: 1120 Specimen Inquiry SPEC: [id number] PATIENT: ARIADNA BANKS [id number] (Continued) Procedure Result CONTINUED ON NEXT PAGE RUN DATE: 03/19/21 [facility] *LIVE* PAGE 3 RUN TIME: 1120 Specimen Inquiry -- SPEC: [id number] PATIENT: ARIADNA BANKS [id number] (Continued) Procedure Result ANTIMICROBIAL SUSCEPTIBILITY Final (continued) MINOCYCLINE <=4 S MEROPENEM <=1 S TRIMETHOPRIM/SULFAMETHOXAZOLE <=0.5/9.5 S TOBRAMYCIN <=2 S Unless otherwise specified, Testing Performed by: [address] [address] For Inquires, the Physician may contact the Microbiology department at [phone] Culture negative Objective Assessment 1. Febrile illness. Improved 2. COVID-19 infection present on date of admission, 02/06/2021. Status post remdesivir, dexamethasone. 3. Acute hypoxic respiratory failure, status post intubation. S/P Trach on 03/17 Trach cultures positive for Rock albicans and now acinebacter ursungi 4. Diabetes. 5. Diarrhea. 6. Hypertension. 7. Hyperlipidemia. 8. Anemia. 9. BOB on HD 10. rock albican, ua neg Plan Plan of Care Monitor off antibiotics DC temporary HDC if not needed Wound care as directed Continue supportive care. We will sign off please call if any questions BLANCA CRAIG MD Apr 21, 2021 10:06
[2021-04-21 11:04] VITALS: BP 93/51
--- NOTE | 2021-04-21 11:10 | PDOC ---
Renal-Progress Notes Subjective Notes Notes NO NEW COMPLAINTS History of Present Illness Hx of present illness STABLE Vitals Vitals Vital Signs Date Time Temp Pulse Resp B/P (MAP) Pulse Ox O2 Delivery O2 Flow Rate FiO2 04/21/21 11:04 98.5 113 18 93/51 (65) 100 Room Air 98.5 04/20/21 16:38 Weight Weight [ ] I.O. Intake and Output Intake and Output 04/21/21 07:00 Intake Total 1710 ml Output Total 3450 ml Balance -1740 ml Intake Oral 1710 ml Output Urine Total 2450 ml Oral Regurgitation 1000 ml Labs Labs Laboratory Tests Test 04/20/21 11:14 04/20/21 16:22 04/20/21 21:05 04/21/21 05:30 Glucose (Fingerstick) 358 mg/dL (70-99) 197 mg/dL (70-99) 328 mg/dL (70-99) Sodium Level 133 mmol/L (136-145) Potassium Level 3.6 mmol/L (3.5-5.1) Chloride Level 95 mmol/L (98-107) Carbon Dioxide Level 28 mmol/L (21-32) Anion Gap 10 (6-14) Blood Urea Nitrogen 21 mg/dL (7-20) Creatinine 1.8 mg/dL (0.6-1.0) Estimated GFR (Cockcroft-Gault) 30.4 Glucose Level 208 mg/dL (70-99) Calcium Level 8.9 mg/dL (8.5-10.1) Test 04/21/21 07:47 Glucose (Fingerstick) 214 mg/dL (70-99) Micro Micro Microbiology 04/02/21 Urine Culture - Final, Complete 04/02/21 Blood Culture - Final, Complete NO GROWTH AFTER 5 DAYS 03/16/21 Gram Stain Evaluation - Final, Complete 03/16/21 Respiratory Culture - Final, Complete 03/16/21 Antimicrobic Susceptibility - Final, Complete Review of Systems Constitutional: yes: other (UNABLE TO OBTAIN) Physical Exam General Appearance: no apparent distress Skin: warm Respiratory: decreased breath sounds Heart: S1S2 Abdomen: soft, bowel sounds present Extremities: pulses present Neurology: alert Assessment Assessment IMP [id number]-LAST HD ON 03-31-[id number] WITH CR STABLE AT 1.8 HEMATURIA GLUCOSURIA MET AND RESP ACIDOSIS WITH ACIDEMIA-IMPROVED COVID 19 PNEUMONIA ACUTE RESP FAILURE-S/P TRACH DM II HTN OBESITY ANEMIA GENERALIZED EDEMA-STABLE LEUCOCYTOSIS HYPOKALEMIA-CORRECTED PLAN MONITOR FOR RENAL RECOVERY REMOVE TEMP HD LINE TODAY ANTIBIOTICS ID EVAL AND TX WILL AVOID DOYLE DUE TO THROMBOGENIC STATE WILL FOLLOW COLLIN ROLON MD Apr 21, 2021 11:10
[2021-04-21] MEDS: DOCUSATE 100 MG/10 ML SOLUTION. PO SCH ×2 (12:03→20:20)
[2021-04-21] MEDS: MULTIVITAMINS,THERAPEUTIC 5 ML ORAL LIQUID. PEG SCH (12:03)
[2021-04-21] MEDS: NYSTATIN TOPICAL POWDER 15GM BOTTLE. TP SCH ×2 (12:05→20:31)
[2021-04-21] MEDS: INSULIN GLARGINE SYRINGE. SQ SCH ×2 (12:14→20:27)
--- NOTE | 2021-04-21 12:36 | NUR ---
SS following up with discharge planning. SS reviewed pt chart and discussed with pt RN. Pt is currently on room air. Pt on PO diet. Nausea and vomiting today. Trach in place. COVID19 recovered. PT/OT continuing to work with pt and currently recommending acute rehabilitation. Self pay. Med Assist following and awaiting spouse to provide needed information to complete applications. SS will continue to follow for discharge planning.
[2021-04-21 15:00] VITALS: BP 120/57
[2021-04-21 19:30] VITALS: BP 154/80
[2021-04-21] MEDS: ATORVASTATIN CALCIUM 40 MG TABLET. PO SCH (20:20)
[2021-04-21 23:00] VITALS: BP 140/71
[2021-04-22 03:30] VITALS: BP 135/63
[2021-04-22 06:21] LABS: CALCIUM 8.8 mg/dL (8.5-10.1); GFR 26.9; POTASSIUM 3.8 mmol/L (3.5-5.1)
[2021-04-22] MEDS: HEPARIN for SUB-Q USE 5,000 UNIT/ML VIAL. SQ SCH ×3 (06:24→22:30)
[2021-04-22 07:00] VITALS: BP 177/82
[2021-04-22] MEDS: IPRATRPIUM/ALBUTEROL 0.5/2.5MG 3 ML NEBU. NEB SCH ×4 (08:03→20:33)
[2021-04-22] MEDS: DOCUSATE 100 MG/10 ML SOLUTION. PO SCH ×2 (09:00→22:28)
[2021-04-22] MEDS: MULTIVITAMINS,THERAPEUTIC 5 ML ORAL LIQUID. PEG SCH ×2 (09:00→09:12)
--- NOTE | 2021-04-22 09:09 | PDOC ---
PULMONARY PROGRESS NOTES DATE: 04/22/21 TIME: 09:09 Subjective Marissa is not more short of breath She is able to speak with trach in place without a [place] valve Vitals Vital Signs Date Time Temp Pulse Resp B/P (MAP) Pulse Ox O2 Delivery O2 Flow Rate FiO2 04/22/21 08:02 Tracheal Collar 8.0 04/22/21 07:00 98.1 123 20 177/82 (113) 98.1 ROS: No Nausea, No Chest Pain, No Abdominal Pain, No Increase Cough Lungs: Crackles Cardiovascular: S1 Abdomen: Soft, Non-tender Neuro Exam: Alert, Normal Speech Skin: Warm Labs Laboratory Tests Test 04/20/21 11:14 04/20/21 16:22 04/20/21 21:05 04/21/21 05:30 Glucose (Fingerstick) 358 mg/dL (70-99) 197 mg/dL (70-99) 328 mg/dL (70-99) Sodium Level 133 mmol/L (136-145) Potassium Level 3.6 mmol/L (3.5-5.1) Chloride Level 95 mmol/L (98-107) Carbon Dioxide Level 28 mmol/L (21-32) Anion Gap 10 (6-14) Blood Urea Nitrogen 21 mg/dL (7-20) Creatinine 1.8 mg/dL (0.6-1.0) Estimated GFR (Cockcroft-Gault) 30.4 Glucose Level 208 mg/dL (70-99) Calcium Level 8.9 mg/dL (8.5-10.1) Test 04/21/21 07:47 04/21/21 11:46 04/21/21 16:49 04/21/21 20:46 Glucose (Fingerstick) 214 mg/dL (70-99) 275 mg/dL (70-99) 306 mg/dL (70-99) 324 mg/dL (70-99) Test 04/22/21 05:55 04/22/21 07:50 Sodium Level 132 mmol/L (136-145) Potassium Level 3.8 mmol/L (3.5-5.1) Chloride Level 95 mmol/L (98-107) Carbon Dioxide Level 28 mmol/L (21-32) Anion Gap 9 (6-14) Blood Urea Nitrogen 26 mg/dL (7-20) Creatinine 2.0 mg/dL (0.6-1.0) Estimated GFR (Cockcroft-Gault) 26.9 Glucose Level 303 mg/dL (70-99) Calcium Level 8.8 mg/dL (8.5-10.1) Glucose (Fingerstick) 350 mg/dL (70-99) Laboratory Tests Test 04/21/21 11:46 04/21/21 16:49 04/21/21 20:46 04/22/21 05:55 Glucose (Fingerstick) 275 mg/dL (70-99) 306 mg/dL (70-99) 324 mg/dL (70-99) Sodium Level 132 mmol/L (136-145) Potassium Level 3.8 mmol/L (3.5-5.1) Chloride Level 95 mmol/L (98-107) Carbon Dioxide Level 28 mmol/L (21-32) Anion Gap 9 (6-14) Blood Urea Nitrogen 26 mg/dL (7-20) Creatinine 2.0 mg/dL (0.6-1.0) Estimated GFR (Cockcroft-Gault) 26.9 Glucose Level 303 mg/dL (70-99) Calcium Level 8.8 mg/dL (8.5-10.1) Test 04/22/21 07:50 Glucose (Fingerstick) 350 mg/dL (70-99) Medications Active Scripts Medications Dose Route/Sig Max Daily Dose Days Date Category Novolog Flexpen (Insulin Aspart) 100 Unit/1 Ml Insuln.pen 3-7 SQ TIDACHC 02/07/21 Reported Lisinopril 5 Mg Tablet 1 Tab PO DAILY 02/07/21 Reported Lantus Solostar (Insulin Glargine,Hum.rec.anlog) 100 Unit/1 Ml Insuln.pen 5 Unit SQ QHS 04/09/15 Reported Atorvastatin Calcium 40 Mg Tablet 40 Mg PO HS 04/09/15 Reported Impression . IMPRESSION: 1. Acute hypoxic respiratory failure secondary to COVID-19 viral pneumonia/acute lung injury and early acute respiratory distress syndrome. S/P intubation 02/17/21. Status post tracheostomy. 2. Nonsmoker. 3. Abnormal chest x-ray consistent with COVID-19 viral pneumonia. 4. Diabetic ketoacidosis--resolved 5. Underlying obesity contributing to hypoxia as well. 6. BOB . hemodialysis started 03/07 7. Fever, 30 ID 8. Abnormal chest x-ray with diffuse interstitial infiltrates compatible with viral pneumonia 9. [place] in the sputum is a contamination 10. Septic shoc 11. s/p lap G-tube 03/27 12. Delirium Plan . Updated 04/21 Discussed with RT will change to 6 Shiley I occluded her current trach tube, patient was having difficulty breathing Will change to a 6 Shiley, smaller trach tube, hopefully she will be able to tolerate capping updated 04/20 Continue current care We will discussed with RT Trach shield for now updated 04/17 Patient asleep I did not wake her up Continue current support On visual inspection no respiratory distress was noted MONTEZ OROPEZA MD Apr 22, 2021 09:09
[2021-04-22] MEDS: FAMOTIDINE 20 MG/2 ML VIAL IVP SCH (09:12)
[2021-04-22] MEDS: fentaNYL 25MCG/HR PATCH 1 PATCH PATCH.TD72 TD SCH (09:20)
[2021-04-22] MEDS: NYSTATIN TOPICAL POWDER 15GM BOTTLE. TP SCH ×2 (09:21→21:00)
[2021-04-22] MEDS: INSULIN GLARGINE SYRINGE. SQ SCH ×2 (09:29→22:32)
[2021-04-22] MEDS: INSULIN LISPRO 300 UNITS/3 ML VIAL. SQ SCH ×4 (09:30→22:31)
[2021-04-22 10:52] VITALS: BP 173/91
--- NOTE | 2021-04-22 11:02 | PDOC ---
Renal-Progress Notes Subjective Notes Notes NO NEW COMPLAINTS History of Present Illness Hx of present illness STABLE Vitals Vitals Vital Signs Date Time Temp Pulse Resp B/P (MAP) Pulse Ox O2 Delivery O2 Flow Rate FiO2 04/22/21 10:52 99.3 125 20 173/91 (118) 99 TRACH SHIELD 8.0 99.3 Weight Weight [ ] I.O. Intake and Output Intake and Output 04/22/21 07:00 Intake Total 960 ml Output Total 4380 ml Balance -3420 ml Intake Oral 960 ml Output Urine Total 4380 ml Labs Labs Laboratory Tests Test 04/21/21 11:46 04/21/21 16:49 04/21/21 20:46 04/22/21 05:55 Glucose (Fingerstick) 275 mg/dL (70-99) 306 mg/dL (70-99) 324 mg/dL (70-99) Sodium Level 132 mmol/L (136-145) Potassium Level 3.8 mmol/L (3.5-5.1) Chloride Level 95 mmol/L (98-107) Carbon Dioxide Level 28 mmol/L (21-32) Anion Gap 9 (6-14) Blood Urea Nitrogen 26 mg/dL (7-20) Creatinine 2.0 mg/dL (0.6-1.0) Estimated GFR (Cockcroft-Gault) 26.9 Glucose Level 303 mg/dL (70-99) Calcium Level 8.8 mg/dL (8.5-10.1) Test 04/22/21 07:50 Glucose (Fingerstick) 350 mg/dL (70-99) Micro Micro Microbiology 04/02/21 Urine Culture - Final, Complete 04/02/21 Blood Culture - Final, Complete NO GROWTH AFTER 5 DAYS 03/16/21 Gram Stain Evaluation - Final, Complete 03/16/21 Respiratory Culture - Final, Complete 03/16/21 Antimicrobic Susceptibility - Final, Complete Review of Systems Constitutional: yes: other (UNABLE TO OBTAIN) Physical Exam General Appearance: no apparent distress Skin: warm Respiratory: decreased breath sounds Heart: S1S2 Abdomen: soft, bowel sounds present Extremities: pulses present Neurology: alert Assessment Assessment IMP [id number]-LAST HD ON [id number] WITH CR STABLE AT 2.0 HEMATURIA GLUCOSURIA MET AND RESP ACIDOSIS WITH ACIDEMIA-IMPROVED COVID 19 PNEUMONIA ACUTE RESP FAILURE-S/P TRACH DM II HTN OBESITY ANEMIA GENERALIZED EDEMA-STABLE LEUCOCYTOSIS HYPOKALEMIA-CORRECTED PLAN REMOVED TEMP HD LINE ANTIBIOTICS ID EVAL AND TX WILL AVOID DOYLE DUE TO THROMBOGENIC STATE WILL FOLLOW COLLIN ROLON MD Apr 22, 2021 11:02
[2021-04-22] MEDS: ONDANSETRON PF 4 MG/2 ML VIAL. IVP PRN ×2 (11:29→18:17)
--- NOTE | 2021-04-22 13:18 | NUR ---
Wound/Ostomy Care Wound Type/Assessment: Wound care follow up for buttocks PU unstageable, wound continues to heal, there is still some noted eschar and slough, however there is more granulation tissue this assessment. Wound cleansed and assessed. Left buttock PU remains resolved. Pt is more alert and able to help with most of the turning and repositioning. No other wounds noted upon complete head to toe assessment. Treatment Recommendations/Plan: Cleanse wound and pat dry Buttocks: Apply honey gel to Aquacel ag and cover with foam dressing. Change dressing on Tuesday and Tuesday. Education provided: Pt is alert and nods in understanding of POC. Patient encouraged to turn every 2 hours. Offloading surface/device: Patient is now repositioning herself and continues to improve. Recommended Referrals/Tests: N/A Discharge Recommendations for dressings: Dressing change instructions left in room. Bed lowered and call light in reach. Wound care will follow up on 04/29/21.
[2021-04-22 14:35] VITALS: BP 118/65
--- NOTE | 2021-04-22 14:45 | PDOC ---
[employer] PROGRESS NOTE Date of Service DOS: DATE: 04/22/21 TIME: 14:40 Chief Complaint Chief Complaint COVID-19 acute hypoxic respiratory failure DKA Hypotension Nausea Vomiting Combined metabolic and respiratory acidosis Acute electrolyte derangementhyponatremia, hypochloremia due to volume deple tion Hyperglycemia BOB due to ATN, requiring dialysis Erythrocytosis Candiduria Sacral decubitus ulcer S/P Trach on (03/17/21) Trach cultures positive for [place] albicans and now acinebacter ursungi History of Present Illness History of Present Illness 04/22: No acute events overnight, resting comfortably in bed. Creatinine 2.0 today, EGFR 26.9. She is self-pay and med assist following and waiting spouse to provide information to complete necessary applications. Continue to monitor kidney function and monitor off antibiotics. 04/21: Afebrile, resting comfortably in bed. Kidney function remained stable, creatinine 1.8, eGFR 30.4. I believe plans per nephrology are to remove HD line today. We will continue to monitor off antibiotics. business services representative working with to help with emergency Medicare. 04/20: Afebrile, breathing on 10 L trach shield. Had some itching today; ordered as needed Benadryl. Kidney function improved and appears to be stable. Per nephrology, possible HD line removal tomorrow. Per ID, will monitor off antibiotics. 04/19 Patient evaluated and examined at bedside. Sugars pretty high today will need more insulin adjustments. On trach collar when I saw her. Continue diet as tolerated. Discussed with at bedside. Diet as tolerated. Working towards discharge. Continue antibiotics. Will ask renal if temporary HD catheter is still needed if not can remove. 04/18 Patient evaluated examined at bedside. She was on trach collar. Continue regular diet as tolerated. Monitoring blood pressure. Working towards discharge. 04/17 Patient evaluated and examined at bedside. She is pretty alert today. Underwent video swallow study earlier and cleared for regular diet with thin liquids. Definite improvement for her. On trach collar when I saw her. Continue current treatments. Watch blood pressure. If she well keep up a consistent amount of p.o. intake may be able to stop tube feeds and PEG tube removal. But this is far down the line. 04/16 Patient seen examined at bedside. Transfer out of the ICU yesterday. Speech therapy to evaluate this morning. Improved notably since I last saw her in the ICU. Continue PEG feeds. Blood pressure treatment. Plan of care discussed with bedside RN. 04/15/2021 Patient seen and examined in the ICU She has clean dry intact tracheostomy with trach shield PEG feeds running at 30 cc an hour She really wants to drink water I told her that we are awaiting speech therapy to reevaluate her Chart reviewed Discussed with RN 04/14/2021 Patient seen and examined in the ICU She remains pleasantly confused Has a new PEG in place Discussed with physical therapy Discussed with RN Chart reviewed 04/13/2021 Patient seen and examined in the ICU She is pleasantly confused Sedated with Precedex and fentanyl I discussed with the speech therapist the patient has no laryngeal movement Now she is n.p.o. again Going for new PEG placement in interventional radiology hopefully later today Her trach is clean Chart reviewed Discussed with RN 04/12/2021 Patient seen and examined in the ICU Her is present today and seems to be good support for her Chart reviewed Discussed with RN Still sedated with Precedex and fentanyl but awake 04/11/2021 Patient seen and examined in the ICU She remains quite confused currently sedated Chart reviewed Discussed with RN Had some nausea vomiting last night Pulled out her PEG yesterday Currently on fentanyl and Precedex IV Zyvox hanging 04/10/2021 Patient seen and examined in the ICU She is pleasantly confused Has a trach shield in place Discussed with RN Chart reviewed We are adding in some as needed Ativan and scheduled Prozac Ms Borges is a 46 year old female who presented with nausea/vomiting since 7 AM 02/06/2021 in the morning. Patient stated that her recently tested positive for Covid. She states that he "coughed in my face because he thought it was funny." She reports subjective fevers and chills and nausea/vomiting. Denies sore throat, cough, shortness of breath. No chest pain. Does have some upper abdominal discomfort after vomiting, that she attributes to muscular strain. She was not vaccinated for Covid. 02/08: No acute events overnight. Patient seen and examined bedside and resting comfortably. Continues to complain of nausea not able to tolerate any diet at this time. Saturating 98% on room air. Patient's chart, labs, images were reviewed and discussed with RN 02/09: Afebrile, currently breathing on room air. Still with complaints of nausea and vomiting x3 today. States that she has history of similar symptoms that have been mildly improved with IV Dilaudid. 02/10: Patient febrile today with T-max 102.2 F. She still admits to nausea, denies any further vomiting. We will continue to provide supportive care and monitor for any recurrent fevers overnight. Patient continues to improve may discharge tomorrow to continue self-isolation. 02/11: Febrile overnight, T-max 102.3 F. She did become hypoxic overnight, currently breathing on 4 L nasal cannula. Also admits to associated vomiting or diarrhea overnight. Discussed with RN, will initiate remdesivir and closely monitor LFTs. IV Decadron, and prophylactic antibiotics. 02/12: Low-grade fever overnight, T-max 99.7. Currently breathing on room air. Will discontinue remdesivir, steroids, and antibiotics; will observe overnight. Still with complaints of vomiting x1 and diarrhea. We will continue to provide supportive care and hope to discharge in the next day or so. 02/13: Afebrile. Still complains of intermittent diarrhea. At the time of my evaluation she was breathing on 6 L nasal cannula; this is somewhat misleading as patient states that she did not feel short of breath but was placed on 6 L by nursing staff overnight. 02/14: Afebrile, currently breathing on 8 L nasal cannula. There has been some misleading documentation, chart oxygen this patient is requiring. Discussed with RN, will resume remdesivir to complete total of 5 days. Continue to monitor LFTs. Will add steroids, Rocephin, and azithromycin. 02/15: Afebrile. Became much more hypoxic overnight, requiring BiPAP. At the time of my evaluation she is still breathing on BiPAP. Consultation was placed to pulmonology. Had discussion with Dr. Myrick about initiating Tocilizumab 02/16: No acute events overnight. Patient becoming more hypoxic saturating 94% and requiring BiPAP. Patient will be transferred to the ICU at this time. For worsening clinical status. Discussed with pulmonary. Patient's chart, labs, images were reviewed and discussed with RN 02/17: Transferred to ICU yesterday afternoon. Seen and examined at bedside she remains on 100% FiO2 on BiPAP. Respirations do appear somewhat labored. Suspect intubation may be impending. We will closely monitor. Increase lisinopril to 20 today. 02/18: Patient required intubation yesterday afternoon. Saw and examined this morning. She is intubated and sedated. Increase insulin today. Covid protocol ordered. Wean as tolerated. Plan of care discussed with bedside nurse. 02/19: Bedside. She remains intubated and sedated. Continue Covid protocol. Wean oxygen sedation as tolerated. Pulmonary following. Plan of care discussed with bedside RN. 02/20: Patient seen and examined at bedside. She remains intubated and sedated. No major clinical changes. Continue current treatment. Pulmonary following. Plan of care discussed with bedside RN. 02/21: Patient seen and examined at bedside. Remains intubated and sedated date and admission clinical changes. Increase free water flushes today due to hypernatremia. Plan of care discussed with bedside nurse. 02/22: Patient seen and examined at bedside. O2 requirement actually improving, although remains intubated. Possible SBT in the coming days. Hypernatremia improving. Plan of care discussed bedside RN. 02/23: Patient remains in ICU on ventilator with FiO2 100%, PEEP 7. Repeat chest x-ray yesterday showed diffuse bilateral pulmonary opacities with no interval improvement. Will discontinue Rocephin and initiate Zosyn. We will continue IV steroids for a full 10-day course 02/24: Afebrile. On vent with FiO2 40%, PEEP 6. Her Coreg has been held due to persistent bradycardia. No documented history of systolic heart failure or previous echocardiogram. Will need to obtain echocardiogram prior to discharge. Continue IV steroids and antibiotics. 02/25: Afebrile. Remains ventilated with FiO2 45%, PEEP 6. Chest x-ray today showed slight improvement of the pulmonary infiltrates, no pneumothorax. Completed 10-day course of IV Decadron. Will initiate slow Solu-Medrol taper. Continue IV Zosyn. Continue supportive care. 02/26: Afebrile. On vent with FiO2 45%, PEEP 6. Completed 10 days of IV Decadron. Will continue IV Zosyn. Continue supportive care. Critical care time 30 minutes spent reviewing charts, reviewing imaging, reviewing labs, discussion with RN. 02/27: Afebrile. On vent with FiO2 45%, PEEP 6. Completed 10 days of steroids and completed remdesivir. Continue with IV Zosyn. CPAP trial yesterday. Continue NG tube and supportive care. 02/28:. Patient remains on vent with FiO2 40%, PEEP 5. Afebrile. Completed steroids and remdesivir. Some noted hypoglycemia overnight, will de-escalate basal insulin. Continue IV Zosyn. Ventilator management per pulmonology. Continue NG tube and supportive care. 03/01: On vent with FiO2 40%, PEEP 5. Afebrile. Completed steroids and remdesivir. Blood glucose well controlled. Continue empiric antibiotics with Zosyn. Ventilator management per pulmonology. Continue NG tube and supportive care. 03/02: No acute events overnight. Patient hypotensive the morning due to oversedation. Will wean off sedation and keep antihypertensive medications on board. Currently saturating 100% on vent settings of 18/450/40/5. Will attempt spontaneous breathing trial today to see how patient does. 03/03: No acute events overnight. Patient saturating 98% on vent settings of 18/450/40/5. Will defer spontaneous breathing trials to pulmonary at this time. Patient's chart, labs, images were reviewed and discussed with RN 8: No acute events overnight. Patient saturating 9 9% on vent settings of 18/450/30/5. Patient currently is unable to tolerate weaning. Per pulmonary. Patient's chart, labs, images were reviewed and discussed with RN 03/05: No acute events overnight. Patient is saturating 97% on vent settings of 18/450/55/5. Her FiO2 needs to be increased due to abnormal ABG with 7.3 7/42/58/24. Patient's chart, labs, images were reviewed and discussed with RN 8: No acute events overnight. Patient saturating 94% on vent settings of 18/450/55/5. Chest x-ray showing increase in pulmonary infiltrates. Wound care is consulted for decubitus ulcer patient's chart, labs, images were reviewed and discussed with RN 8/: No acute events overnight. Patient saturating 94% on vent settings of 20/450/70/8. Patient now heading into renal failure with her creatinine bumped up from 1.5-4.2. Decreased urine output. Plan for hemodialysis today and temporary catheter placement and nephrology is consulted. 03/08: No acute events overnight. Patient did have a nausea vomiting episode and tube feeds were held. KUB repeat shows NG tube still in the stomach. Will resume tube feeds at trickle and advance to goal today. Will start hemodialysis soon. 03/09: Seen on vent 450/60%/8. ABG 7.2 WBC 11.4, Hb 7.4, platelets 18 8, NA 131, K4.9, BUN 48, CR 51, glucose 199, phosphorus 7.9, mag 2.2, AST 265 ALT 219, albumin 1.1. Chest radiograph appears unchanged from prior. Dialysis x1 today 03/10: Afebrile. Seen on vent, /60/7 with ABG 7.3 . Tolerated dialysis well on 03/09. LFTs similar. 03/11: Afebrile. Seen on vent, sedated. Still requiring Levophed for BP support. WBC 16.7, Hb 8.1, NA 130, ABG 7.3 on 55% FiO2 PEEP 6. On Zosyn and Zyvox Diflucan. Dialysis today 03/12: Afebrile. Still requiring Levophed for BP support sedated with Versed febrile Precedex. WBC 16.1, Hb 8.5, platelets 185, NA 133. Trach plan tentatively 03/17. O2 saturations 93% on 50% FiO2 PEEP 6. ABG 7. On Zosyn and Zyvox Diflucan. 03/13: Afebrile. Still on Levophed for BP support lightly sedated. 7. on 45% FiO2. Plan for dialysis today. On Zosyn and Zyvox Diflucan. More swollen today. 03/14: Afebrile. Weaning down off Levophed. WBC 14.9 NA 132. O2 saturations 92% on 45% FiO2 PEEP 5. Afebrile. O2 saturations 91% on FiO2 45% PEEP 6. Continued on Zosyn and Zyvox Diflucan. Tentative trach planned 03/17/2021 CC time 31 minutes 03/16/21: Patient seen and examined in ICU. Periorbital as well as upper and lower extremity edema noted. OG feed running at 30cc/hr. Still on vent on pressure control with a rate of 24 with 45% FiO2. Patient has rectal bag. Currently she has 98% O2 sat. Currently sedated with Dexmedetomidine, Propofol, Versed, and Fentanyl. Discussed with RN. Chart reviewed. 03/17/21: Patient was seen and examined in the ICU today. Periorbital edema as well as abdominal and mons pubis edema was noted. Patient still on vent on pressure control with Fi02 of 45% plus 6 PEEP. Patient had rectal bag. Currently sedated on Dexmedetomidine, Propofol, Versed, and Fentanyl. Discussed with RN. Chart reviewed. 03/18/21: Patient seen and examined in ICU. On vent via trach that was placed yesterday. Vent settings are Pressure Control of 40 with FiO2 of 45% and 6 PEEP. Trach clean and dry. Orbital swelling still present. Pupils are sluggish. Patient on TPN running at 30cc/hr. Kern to bedside and rectal bag in place. Current O2 sat at 94%. Sedated on Dexmedetomidine, Propofol, Versed, and Fentanyl. Discussed with RN. Chart reviewed. 03/19/21: Patient was seen and examined in the ICU today. Currently on vent via trach on pressure control of 42, rate of 24, FiO2 of 45%, and 6 PEEP. O2 sat is at 97% while patient is being examined. Trach is clean and dry. PICC line is in place on right arm. Periorbital swelling has decreased slightly since examined yesterday. Patient is sedated on Dexmedetomidine, Propofol, Versed, and Fentanyl. Discussed with RN. Chart reviewed. 03/20/21: Patient seen and examined in the ICU. Periorbital edema is slightly decreased since yesterday. O2 sat while being examined was 93%. NG tube in place and running at 30cc/hr. Patient on vent via trach on pressure control of 40 with FiO2 of 45 and rate of 24. Sedated on Dexmedetomidine, Propofol, Versed, and Fentanyl. PICC line in place. Kern to bedside. Rectal bag present. Discussed with RN. Chart reviewed. 03/21/21: Patient was seen and examined in the ICU today. She was semi-sedated.. She was on Dexmedetomidine and Fentanyl. We are holding the Propofol. Her eyes were periodically open but she was not making meaningful eye contact or tracking. On vent via trach with pressure control of 40 and FiO2 at 45. Rate was 24. PEEP was 5. Trach was clean and dry. While being examined, her O2 sat was 94%. Rectal bag and Kern to bedside in place. NG tube in place and feeding at 30cc/hr. IV fluids still running. Levophed has been stopped. Discussed with RN. Chart reviewed. 03/22/21: Patient was seen and examined in the ICU. She was semi-sedated on Propofol and Dexmedetomidine. Her eyes were open but she did not make meaningful eye contact. Her blood pressure was elevated (198/102) while being examined and she had just been given hydralazine to lower it. There are plans to place a PEG tube tomorrow. Currently on vent via trach on pressure control of 40 with FiO2 of 45%, 5 PEEP, and a rate of 24. Current O2 sat is 98%. She is feeding through an NG tube at 30cc/hr. Rectal bag and Kern to bedside present. SCDs on patient for DVT prophylaxis. She did not do her daily dialysis today but the plan is to start back on that tomorrow. Discussed with RN. Chart reviewed. 03/23/2021: Patient remains in ICU on ventilator. FiO2 40%, PEEP 5. Trach cultures positive for [place] albicans and acinebacter ursungi. We will continue treatment with IV antibiotics and micafungin, per ID. HD per nephrology. Plans for PEG tube placement today. 30 minutes critical care time was spent reviewing charts, reviewing labs, reviewing imaging, discussion with RN. 03/24/2021: Afebrile. On vent with FiO2 45%, PEEP 5. Had attempted PEG placement per GI yesterday, but unable to locate safe path for PEG; will consider surgical opinion. Once PEG is in place she should be stable for LTAC transfer when accepted. Continue antibiotics, per ID. 30 minutes critical care time was spent reviewing charts, reviewing labs, reviewing imaging, discussion with RN. 03/25/2021: Febrile overnight with T-max 101.5 F. On vent with FiO2 45%, PEEP 5. Surgery has been consulted with tentative plans for laparoscopic versus open gastrostomy placement tomorrow. Trach cultures positive for [place] albicans and now acinebacter ursungi; will continue antibiotic management, per ID. Hemodialysis, per nephrology. Patient needing LTAC placement, but currently without benefits. day care worker following for discharge planning. Critical care time 30 minutes spent reviewing charts, reviewing labs, reviewing imaging, discussion with RN. 03/26/2021: Febrile today with T-max 100.5 F. Awake on vent with FiO2 45%, PEEP 5. When I ask if she remembers any she nods. G-tube placement scheduled for tomorrow, per general surgery. Chest x-ray today showed slight interval increase in diffuse infiltrate. Continue antibiotic management, per ID. Hemodialysis per nephrology. Reportedly did not tolerate CPAP trial this morning. day care worker following for LTAC placement. Critical care time 30 minutes spent reviewing charts, reviewing labs, reviewing imaging, discussion with RN. 03/27/2021: On vent with FiO2 45%, PEEP 5. Afebrile today. Continue treatment of acute renal failure requiring HD, per nephrology. Monitor kidney function for recovery. G-tube placement scheduled for today, per general surgery. Likely LTAC placement soon, but this is been a difficult as she is self-pay without benefits; social services aide following. Critical care time 30 minutes spent reviewing charts, reviewing labs, reviewing imaging, discussion with RN. 03/28/2021: Afebrile. On vent with FiO2 40%, PEEP 5. Had laparoscopic gastrostomy tube placed yesterday, per general surgery. Continue treatment of acute renal failure requiring HD, per nephrology. Continue IV antibiotics, per ID. Likely LTAC placement soon, but this is been a difficult as she is self-pay without benefits; social services aide following. Critical care time 30 minutes spent reviewing charts, reviewing labs, reviewing imaging, discussion with RN. 03/29/2021: Afebrile. On vent with FiO2 45%, PEEP 5. S/P laparoscopic josie rostomy tube; tube feeds running. HD, per nephrology. Continue meropenem, per ID. Anticipate LTAC placement soon now that PEG has being placed; social services aide helping in these regards. Critical care time 30 minutes spent reviewing charts, reviewing labs, reviewing imaging, discussion with RN. 03/30 No major events or clinical changes overnight. Patient evaluated at bedside this morning on trach and G-tube. Tolerating these well. Has been working on insurance for patient for placement as she will need long-term care. Guarded prognosis. Plan of care discussed with bedside nurse. 03/31 No major clinical changes. Remains trached. Sedated. Continue current plan. 04/01 No changes. Patient resting in bed when evaluated sedated. is supposed to be working on insurance for placement for the patient. Otherwise no changes. 04/02 Patient febrile overnight, daptomycin added this morning per infectious disease. Otherwise no major clinical changes. Awaiting insurance. Infectious disease, pulmonary and renal following. Plan of care discussed with bedside RN. 04/03 Patient undergoing dialysis today. Evaluated at bedside this morning. otherwise continue current plan. supposed working on insurance. 04/04 No major overnight changes. Continue current plan. 04/05 Patient notably more movement this morning eyes open resting in bed otherwise no major changes. Continue current plan. Insurance pending. 04/06 Patient notably more movement this morning eyes open resting in bed current plan. Insurance pending. Continue daptomycin, renal dosing April 02 F/U Blood culture UA urine culture C. diff PCR negative 32 min cc time 04/07 Patient notably more movement this morning eyes open resting in bed current plan. Insurance pending. Continue daptomycin, renal dosing April 02 F/U Blood culture UA urine culture C. diff PCR negative Abnormal chest x-ray consistent with COVID-19 viral pneumonia. Diabetic ketoacidosis--resolved obesity contributing to hypoxia as well. BOB . hemodialysis started 03/07 DVT GI prophylaxis Nutritional support 34 min cc time 04/08 Patient notably more movement this morning eyes open resting in bed current plan. Insurance pending. Continue daptomycin, renal dosing April 02 F/U Blood culture UA urine culture C. diff PCR negative s/p lap G-tube 03/27 Abnormal chest x-ray consistent with COVID-19 viral pneumonia. Diabetic ketoacidosis--resolved obesity contributing to hypoxia as well. BOB . hemodialysis started 03/07 DVT GI prophylaxis Nutritional support Right PICC line February 14 out; left PICC line 04/07/2021 Right IJ HDC clean March 07 32 min cc time 04/09 non Oliguric for past 112 -2 weeks , good response to IV NS bolus .requiring dialysis., currently on MWF schedule, tolerating trach shield well.using her speaking valve./ resting in bed current / states she feels better Start iv Zyvox Cont Meropenem DC daptomycin post PICC line exchange aspiration precautions C. diff PCR negative F/U Blood culture UA urine culture s/p lap G-tube 03/27 Abnormal chest x-ray consistent with COVID-19 viral pneumonia. Diabetic ketoacidosis--resolved obesity contributing to hypoxia as well. BOB . hemodialysis started 03/07 DVT GI prophylaxis Nutritional support Right PICC line February 14 out; left PICC line 04/07/2021 Right IJ HDC clean March 07 34 min cc time Vitals/I&O Vitals/I&O: Vital Signs Date Time Temp Pulse Resp B/P (MAP) Pulse Ox O2 Delivery O2 Flow Rate FiO2 04/22/21 13:20 99 8.0 04/22/21 11:43 Tracheal Collar 04/22/21 10:52 99.3 125 20 173/91 (118) 99.3 I & O 04/21/21 04/21/21 04/22/21 15:00 23:00 07:00 Intake Total 320 ml 0 ml 640 ml Output Total 980 ml 1250 ml 2150 ml Balance -660 ml -1250 ml -1510 ml Physical Exam Physical Exam: GENERAL: No acute distress HEENT: Normocephalic, atraumatic. Anicteric. Neck right IJ HDC clean Trach + capped LUNGS: Decreased breath sounds otherwise clear HEART: S1, S2. No murmurs. ABDOMEN: Obese, soft. Bowel sounds present. Nontender, nondistended. PEG tube pulled out by patient EXTREMITIES: Edema present no cyanosis. CENTRAL NERVOUS SYSTEM: Intubated. PSYCHIATRIC: Confused Derm has pressure wounds wound pictures noted in chart. Generalized rash, Right PICC line removed; left PICC line 04/07/2021 Right IJ HDC clean March 07 General: Cooperative, No acute distress Heart: Regular rate, Normal S1, Normal S2 Lungs: Crackles Abdomen: Soft, Other (ND) Extremities: No cyanosis, Other (ANASARCA) Skin: No rashes, No significant lesion Labs Labs: Laboratory Tests Test 04/21/21 16:49 04/21/21 20:46 04/22/21 05:55 04/22/21 07:50 Glucose (Fingerstick) 306 mg/dL (70-99) 324 mg/dL (70-99) 350 mg/dL (70-99) Sodium Level 132 mmol/L (136-145) Potassium Level 3.8 mmol/L (3.5-5.1) Chloride Level 95 mmol/L (98-107) Carbon Dioxide Level 28 mmol/L (21-32) Anion Gap 9 (6-14) Blood Urea Nitrogen 26 mg/dL (7-20) Creatinine 2.0 mg/dL (0.6-1.0) Estimated GFR (Cockcroft-Gault) 26.9 Glucose Level 303 mg/dL (70-99) Calcium Level 8.8 mg/dL (8.5-10.1) Test 04/22/21 11:57 Glucose (Fingerstick) 232 mg/dL (70-99) Assessment and Plan Assessmemt and Plan Problems Medical Problems: (1) Ketoacidosis Status: Acute Comment Review of Relevant I have reviewed the following items mazin (where applicable) has been applied. Justifications for Admission Other Justification SANDI ALCARAZ MD Apr 22, 2021 14:45
--- NOTE | 2021-04-22 15:47 | NUR ---
SS following up with discharge planning. SS reviewed pt chart and discussed with pt RN. Pt is currently requiring oxygen via trach shield at 35% when speaking valve is off and room air with speaking valve on. Pt on PO diet. Pt having nausea, vomiting, and abdominal pain today. PT/OT recommending acute rehabilitation. Self pay. Med Assist following. SS will continue to follow for discharge planning.
[2021-04-22 19:00] VITALS: BP 190/101
[2021-04-22] MEDS: ATORVASTATIN CALCIUM 40 MG TABLET. PO SCH (21:00)
[2021-04-22] MEDS: diphenhydrAMINE ORAL ELIXIR 12.5 MG/5 ML ML PEG PRN (22:27)
[2021-04-22] MEDS: PROCHLORPERAZINE 10 MG/2 ML VIAL. IV PRN (22:28)
[2021-04-22] MEDS: hydrALAZINE 20 MG/ML VIAL. IVP PRN (22:29)
[2021-04-22 23:00] VITALS: BP 106/51
[2021-04-23 03:00] VITALS: BP 117/56
[2021-04-23] MEDS: HEPARIN for SUB-Q USE 5,000 UNIT/ML VIAL. SQ SCH ×3 (05:59→22:47)
[2021-04-23 06:18] LABS: BASO # 0.1 x10^3/uL (0.0-0.2); BASO % 1 % (0-3); EOS # 0.5 x10^3/uL (0.0-0.7); EOS % 3 % (0-3); HEMATOCRIT 26.4 % (36.0-47.0); HEMOGLOBIN 8.6 g/dL (12.0-15.5); LYMPH # 3.1 x10^3/uL (1.0-4.8); LYMPH % 22 % (24-48); MEAN CORPUSCULAR HEMOGLOBIN 28 pg (25-35); MEAN CORPUSCULAR HGB CONC 33 g/dL (31-37); MEAN CORPUSCULAR VOLUME 86 fL (79-100); MONO # 1.6 x10^3/uL (0.0-1.1); MONO % 11 % (0-9); NEUT % 63 % (31-73); PLATELET COUNT 279 x10^3/uL (140-400); RED BLOOD COUNT 3.08 x10^6/uL (3.50-5.40); RED CELL DISTRIBUTION WIDTH 14.9 % (11.5-14.5); WHITE BLOOD COUNT 14.2 x10^3/uL (4.0-11.0)
[2021-04-23 06:23] LABS: CALCIUM 9.2 mg/dL (8.5-10.1); CREATININE 1.9 mg/dL (0.6-1.0); GFR 28.6; POTASSIUM 4.1 mmol/L (3.5-5.1)
--- NOTE | 2021-04-23 06:27 | NUR ---
AT MEAL TIME PT CONTINUES TO VOMIT HER SOLID FOOD WITH EACH MEAL SHE SAID. LCRN
[2021-04-23 07:00] VITALS: BP 134/63
[2021-04-23] MEDS: IPRATRPIUM/ALBUTEROL 0.5/2.5MG 3 ML NEBU. NEB SCH ×4 (07:40→20:19)
[2021-04-23] MEDS: DOCUSATE 100 MG/10 ML SOLUTION. PO SCH ×2 (09:00→21:00)
[2021-04-23] MEDS: MULTIVITAMINS,THERAPEUTIC 5 ML ORAL LIQUID. PEG SCH (09:33)
[2021-04-23] MEDS: FAMOTIDINE 20 MG/2 ML VIAL IVP SCH (09:33)
[2021-04-23] MEDS: NYSTATIN TOPICAL POWDER 15GM BOTTLE. TP SCH ×2 (09:33→22:28)
[2021-04-23] MEDS: INSULIN LISPRO 300 UNITS/3 ML VIAL. SQ SCH ×4 (09:35→21:00)
[2021-04-23] MEDS: INSULIN GLARGINE SYRINGE. SQ SCH ×2 (09:36→22:47)
--- NOTE | 2021-04-23 10:21 | PDOC ---
DATE OF SERVICE DATE: 04/23/21 TIME: 10:21 SUBJECTIVE ROS on trach collar C/O some nausea and vomiting. OBJECTIVE Vital Signs Vital Signs Date Time Temp Pulse Resp B/P (MAP) Pulse Ox O2 Delivery O2 Flow Rate FiO2 04/23/21 07:41 100 Tracheal Collar 8.0 04/23/21 07:00 98.9 112 18 134/63 (86) 98.9 I & 0 Intake and Output 04/23/21 07:00 Intake Total 960 ml Output Total 3925 ml Balance -2965 ml Intake Oral 820 ml Blood Product IV Normal Saline Flush 140 ml Output Urine Total 3325 ml Emesis 600 ml PHYSICAL EXAM Physical Exam GENERAL: NAD , Trach collar HEENT: Anicteric. . OM moist Neck Trach+ LUNGS: decreased at bases HEART: S1, S2. No murmurs. ABDOMEN: Obese, soft. Bowel sounds present. EXTREMITIES: no cyanosis. DIAGNOSIS/ASSESSMENT Assessment & Plan BOB-ATN- Improving renal function . Required dialysis , last was on Tuesday (04/10) E-Lytes, Resp status stable. Supportive care, I/O avoid nephrotoxins, HypoNatremia - resolved DM 2 - COVID 19 Pneumonia - Unvaccinated , treated Acute Resp Failure- Trach Collar with o2 HTN Anemia -avoid DOYLE 2/2 to Thrombogenic state Family History of ESRD - Per at bedside- Pt's Mom was on dialysis and sister is on Dialysis COMMENT/RELEVANT DATA Meds Current Medications Medications (Trade) Dose Ordered Sig/Pepe Start Time Stop Time Status Last Admin Dose Admin Acetaminophen (Tylenol Supp) 650 mg PRN Q6HRS PRN 02/08/21 01:45 02/17/21 10:45 DC Acetaminophen (Tylenol) 500 mg 1X PRN PRN 03/17/21 13:30 03/18/21 13:29 DC Albumin Human 200 ml @ 200 mls/hr 1X PRN PRN 04/06/21 08:45 04/06/21 14:44 DC 04/06/21 10:43 200 MLS/HR Albuterol Sulfate (Ventolin Hfa) 60 puff STK-MED ONCE 03/17/21 11:29 03/17/21 11:29 DC Albuterol Sulfate (Ventolin Neb Soln) 2.5 mg PRN Q4HRS PRN 04/19/21 13:00 04/21/21 05:30 2.5 MG Albuterol/ Ipratropium (Duoneb) 3 ml RTQID 04/15/21 10:00 04/23/21 07:40 3 ML Alteplase, Recombinant (Cathflo For Central Catheter Clearance) 1 mg 1X ONCE 02/27/21 14:30 02/27/21 14:36 DC 02/27/21 15:19 1 MG Alteplase, Recombinant (Cathflo) 2 mg 1X ONCE 02/27/21 11:00 02/27/21 11:01 DC 02/27/21 11:20 2 MG Amlodipine Besylate (Norvasc) 10 mg DAILY 03/31/21 09:00 04/20/21 11:15 DC 04/20/21 08:36 10 MG Atorvastatin Calcium (Lipitor) 40 mg HS 02/08/21 21:00 04/22/21 21:00 40 MG Atropine Sulfate (ATROPINE 0.5mg SYRINGE) 0.5 mg PRN Q5MIN PRN 02/16/21 12:00 Azithromycin 250 mg/Sodium Chloride 250 ml @ 250 mls/hr Q24H 02/14/21 13:30 02/18/21 14:29 DC 02/18/21 11:51 250 MLS/HR Barium Sulfate (Varibar Thin Liquid Apple) 148 gm 1X ONCE 04/17/21 10:00 04/17/21 10:02 DC 04/17/21 11:30 148 GM Benzonatate (Tessalon Perle) 100 mg [id number] 02/10/21 23:30 02/17/21 10:45 DC 02/16/21 22:07 100 MG Bupivacaine HCl/ Epinephrine Bitart (Sensorcain-Epi 0.5% Kit) 30 ml STK-MED ONCE 03/27/21 10:05 03/27/21 10:05 DC 03/27/21 13:12 16 ML Bupivacaine HCl/ Epinephrine Bitart (Sensorcain-Epi 0.5%-1:866175 Mpf) 30 ml STK-MED ONCE 03/17/21 10:47 03/17/21 10:47 DC Carvedilol (Coreg) 6.25 mg BIDWMEALS 02/08/21 20:30 02/23/21 15:50 DC 02/23/21 08:06 6.25 MG Cefazolin Sodium/ Dextrose (Ancef 2gm Premix) 2 gm STK-MED ONCE 03/23/21 13:00 03/24/21 11:58 DC Ceftriaxone Sodium (Rocephin) 1 gm Q24H 02/14/21 13:00 02/23/21 07:34 DC 02/22/21 12:42 1 GM Cellulose (Surgicel Fibrillar 1x2) 1 each STK-MED ONCE 03/17/21 10:47 03/17/21 10:47 DC 03/17/21 11:56 1 EACH Daptomycin 480 mg/ Sodium Chloride 50 ml @ 100 mls/hr QMWF 03/23/21 16:00 03/26/21 10:29 DC 03/25/21 19:52 100 MLS/HR Daptomycin 500 mg/ Sodium Chloride 50 ml @ 100 mls/hr Q48H 04/02/21 10:00 04/09/21 10:52 DC 04/08/21 13:14 100 MLS/HR Dexamethasone Sodium Phosphate (Decadron) 2 mg 1X ONCE 02/27/21 09:00 02/26/21 07:15 DC Dexmedetomidine HCl 400 mcg/ Sodium Chloride 100 ml @ 0 mls/hr CONT PRN 02/27/21 09:45 04/16/21 15:07 DC 04/15/21 05:36 0.2 MLS/HR Dextrose (Dextrose 50%-Water Syringe) 12.5 gm PRN Q15MIN PRN 03/01/21 13:00 03/01/21 12:55 12.5 GM Diphenhydramine HCl (Benadryl Oral Elixir) 25 mg PRN Q6HRS PRN 04/20/21 09:45 04/22/21 22:27 25 MG Diphenhydramine HCl (Benadryl) 25 mg 1X PRN PRN 03/17/21 13:30 03/18/21 13:29 DC Docusate Sodium (Colace Solution) 100 mg BID 02/23/21 12:00 04/22/21 22:28 100 MG Docusate Sodium (Colace) 100 mg PRN DAILY PRN 02/07/21 08:45 02/23/21 10:47 DC Enalaprilat (Vasotec Inj) 0.625 mg Q6HRS 02/08/21 16:15 02/09/21 16:01 DC 02/09/21 13:42 0.625 MG Enoxaparin Sodium (Lovenox 30mg Syringe) 30 mg Q24H 03/08/21 09:00 03/12/21 15:38 DC 03/12/21 09:04 30 MG Enoxaparin Sodium (Lovenox 40mg Syringe) 40 mg BID 02/09/21 09:00 03/08/21 13:56 DC 03/08/21 08:26 40 MG Enoxaparin Sodium (Lovenox Per Pharmacy Prophylaxis Dosing) 1 each PRN DAILY PRN 02/09/21 06:45 03/12/21 15:38 DC Ephedrine Sulfate (ePHEDrine PF IN SALINE SYRINGE) 50 mg STK-MED ONCE 03/17/21 10:56 03/17/21 10:56 DC Famotidine (Pepcid Vial) 20 mg DAILY 03/10/21 09:00 04/23/21 09:33 20 MG Fentanyl (Duragesic 25mcg/ Hr Patch) 1 patch Q3DAYS 04/13/21 13:00 04/22/21 09:20 1 PATCH Fentanyl Citrate (Fentanyl 2ml Vial) 100 mcg 1X ONCE 04/13/21 14:00 04/13/21 14:03 DC 04/13/21 13:54 50 MCG Fluconazole/ Sodium Chloride 100 ml @ 100 mls/hr Q24H 03/07/21 09:00 03/17/21 08:03 DC 03/16/21 08:29 100 MLS/HR Fluoxetine HCl (PROzac) 20 mg 1X ONCE 04/10/21 11:15 04/10/21 11:34 DC Furosemide (Lasix) 40 mg 1X ONCE 03/29/21 15:00 03/29/21 15:02 DC 03/29/21 15:22 40 MG Glycerin/ Hypromellose/ Polyethylene (Artificial Tears) 1 drop PRN Q1HR PRN 02/17/21 10:00 04/05/21 08:02 1 DROP Glycopyrrolate (Robinul) 1 mg STK-MED ONCE 03/27/21 14:07 03/27/21 14:07 DC Guaifenesin (Robitussin Dm) 10 ml PRN Q6HRS PRN 02/10/21 23:30 02/16/21 09:06 10 ML Haloperidol Lactate (Haldol Inj) 5 mg Q8HRS 04/01/21 11:30 04/07/21 14:58 DC 04/07/21 05:51 5 MG Heparin Sodium (Porcine) (Heparin Sodium) 5,000 unit Q8HRS 03/13/21 06:00 04/23/21 05:59 5,000 UNIT Hydralazine HCl (Apresoline Inj) 10 mg PRN Q4HRS PRN 02/11/21 12:15 04/22/21 22:29 10 MG Hydromorphone HCl (Dilaudid) 0.5 mg PRN Q10MIN PRN 03/27/21 06:00 03/28/21 05:59 DC Info (CONTRAST GIVEN -- Rx MONITORING) 1 each PRN DAILY PRN 04/13/21 13:45 04/15/21 13:44 DC Info (PHARMACY MONITORING -- do not chart) 1 each PRN DAILY PRN 04/10/21 13:30 Cancel Insulin Glargine (Lantus Syringe) 15 unit BID 04/22/21 21:00 04/23/21 09:36 15 UNIT Insulin Human Lispro (HumaLOG) 0-9 UNITS TIDACHC 04/19/21 19:45 04/23/21 09:35 4 UNITS Insulin Human Regular 100 ml @ 10 mls/hr 1X ONCE 02/07/21 06:30 02/07/21 16:54 DC 02/07/21 09:31 6.5 MLS/HR Insulin Human Regular 100 unit/ Sodium Chloride 101 ml @ 0 mls/hr CONT PRN PRN 02/07/21 06:00 02/07/21 16:54 DC Iohexol (Omnipaque 240 Mg/ml) 50 ml 1X ONCE 04/13/21 13:45 04/13/21 13:46 DC 04/13/21 13:45 28 ML Labetalol HCl (Normodyne Iv Push) 10 mg PRN Q2HR PRN 02/08/21 00:45 04/16/21 19:53 10 MG Lactobacillus Rhamnosus (Culturelle) 1 cap BID 02/16/21 21:00 02/17/21 10:45 DC 02/16/21 22:02 1 CAP Lidocaine HCl (Buffered Lidocaine 1%) 3 ml STK-MED ONCE 03/07/21 13:25 03/07/21 13:25 DC Linezolid (Zyvox) 600 mg BID 03/05/21 09:00 03/12/21 07:00 DC 03/11/21 20:33 600 MG Linezolid/Dextrose 300 ml @ 300 mls/hr Q12HR 04/09/21 12:00 04/11/21 12:54 DC 04/11/21 09:59 300 MLS/HR Lisinopril (Prinivil) 20 mg DAILY 02/17/21 09:00 03/09/21 10:43 DC 02/27/21 09:10 20 MG Lorazepam (Ativan Inj) 1 mg PRN Q2HR PRN 04/10/21 11:15 04/22/21 22:29 1 MG Magnesium Sulfate 50 ml @ 25 mls/hr 1X ONCE 04/17/21 18:00 04/17/21 19:59 DC 04/17/21 17:31 25 MLS/HR Meropenem 1 gm/ Sodium Chloride 100 ml @ 200 mls/hr Q24H 03/18/21 17:00 04/10/21 11:57 DC 04/09/21 17:00 200 MLS/HR Methylprednisolone Sodium Succinate (SOLU-Medrol 125MG VIAL) 80 mg Q8HRS 02/25/21 09:00 02/26/21 07:09 DC 02/26/21 05:52 80 MG Metoclopramide HCl (Reglan Vial) 10 mg PRN Q6HRS PRN 02/08/21 00:45 02/12/21 15:51 10 MG Micafungin Sodium 100 mg/Dextrose 100 ml @ 100 mls/hr Q24H 03/21/21 18:00 03/25/21 10:27 DC 03/24/21 16:36 100 MLS/HR Midazolam HCl (Versed) 2 mg 1X ONCE 04/13/21 14:00 04/13/21 14:03 DC 04/13/21 13:54 2 MG Morphine Sulfate (Morphine Sulfate) 1 mg PRN Q10MIN PRN 03/27/21 06:00 03/28/21 05:59 DC Multi-Ingred Cream/Lotion/Oil/ Oint (Artificial Tears Eye Ointment) 1 reji PRN Q1HR PRN 03/17/21 17:30 03/20/21 15:55 1 REJI Multivitamins/ Minerals Therapeutic (Centrum Multivit-Mineral Liq) 5 ml DAILY 03/14/21 09:00 04/23/21 09:33 5 ML Naloxone HCl (Narcan) 0.4 mg PRN Q2MIN PRN 03/27/21 14:30 Neostigmine [place] (Neostigmine Methylsulfate) 5 mg STK-MED ONCE 03/27/21 14:06 03/27/21 14:07 DC Norepinephrine Bitartrate 8 mg/ Dextrose 258 ml @ 21.711 mls/ hr CONT PRN 03/06/21 13:45 04/15/21 14:14 DC 03/19/21 18:45 23.3 MLS/HR Nystatin (Nystop) 1 reji BID 03/02/21 21:00 04/23/21 09:33 1 REJI Ondansetron HCl (Zofran Odt) 4 mg 1X ONCE 02/06/21 23:30 02/06/21 23:31 DC 02/06/21 23:57 4 MG Ondansetron HCl (Zofran) 4 mg STK-MED ONCE 04/13/21 13:33 04/13/21 13:33 DC Oxycodone/ Acetaminophen (Percocet 5/325) 2 tab PRN Q4HRS PRN 04/19/21 11:45 Phenylephrine HCl (PHENYLEPHRINE in 0.9% NACL PF) 1 mg STK-MED ONCE 03/27/21 13:46 03/27/21 13:46 DC Piperacillin Sod/ Tazobactam Sod (Zosyn Per Pharmacy) 1 each PRN DAILY PRN 02/23/21 07:45 03/17/21 10:04 DC Piperacillin Sod/ Tazobactam Sod 2.25 gm/Sodium Chloride 50 ml @ 100 mls/hr Q8HRS 03/07/21 14:00 03/17/21 08:03 DC 03/17/21 05:58 100 MLS/HR Piperacillin Sod/ Tazobactam Sod 3.375 gm/Sodium Chloride 50 ml @ 100 mls/hr Q6HRS 03/14/21 18:00 Cancel Piperacillin Sod/ Tazobactam Sod 4.5 gm/Sodium Chloride 100 ml @ 200 mls/hr Q6HRS 02/23/21 08:00 03/07/21 08:18 DC 03/07/21 06:12 200 MLS/HR Potassium Bicarbonate (Potassium Effervescent Tablet) 40 meq 1X ONCE 04/16/21 09:00 04/16/21 09:04 DC 04/16/21 09:22 40 MEQ Potassium Chloride/Water 100 ml @ 50 mls/hr Q2HR 04/17/21 18:00 04/17/21 21:59 DC 04/17/21 21:55 50 MLS/HR Potassium Chloride (Klor-Con) 40 meq 1X ONCE 02/13/21 12:00 02/13/21 12:01 DC 02/13/21 13:21 40 MEQ Prochlorperazine Edisylate (Compazine) 5 mg PACU PRN PRN 03/27/21 06:00 03/28/21 05:59 DC Propofol (Diprivan) 200 mg STK-MED ONCE 03/27/21 12:02 03/27/21 12:03 DC Remdesivir 100 mg/ Sodium Chloride 230 ml @ 460 mls/hr Q24H 02/15/21 12:00 02/18/21 12:29 DC 02/18/21 11:52 460 MLS/HR Remdesivir 200 mg/ Sodium Chloride 210 ml @ 210 mls/hr 1X ONCE 02/11/21 13:00 02/12/21 11:55 DC 02/11/21 14:33 210 MLS/HR Ringer's Solution 1,000 ml @ 30 mls/hr Q24H 03/27/21 06:00 03/27/21 17:59 DC Rocuronium [place] (Zemuron) 50 mg STK-MED ONCE 03/27/21 13:16 03/27/21 13:17 DC Sennosides (Senna) 17.2 mg PRN BID PRN 02/07/21 08:45 02/22/21 08:29 17.2 MG Sevoflurane (Ultane) 60 ml STK-MED ONCE 03/27/21 14:19 03/27/21 14:20 DC Sodium Chloride 500 ml @ 500 mls/hr 1X ONCE 04/08/21 16:45 04/08/21 17:44 DC 04/08/21 17:10 500 MLS/HR Sodium Chloride (Normal Saline Flush) 3 ml QSHIFT PRN 03/27/21 14:30 Succinylcholine Chloride (Anectine) 200 mg STK-MED ONCE 02/17/21 10:00 02/25/21 08:40 DC Vancomycin HCl (Vanco Per Pharmacy) 1 each PRN DAILY PRN 03/04/21 18:30 03/05/21 08:59 DC 03/04/21 19:47 1 EACH Vancomycin HCl (Vancomycin Trough Level) 1 each 1X ONCE 03/06/21 07:00 03/06/21 07:01 Cancel Vancomycin HCl 1.5 gm/Sodium Chloride 500 ml @ 250 mls/hr Q12H 03/05/21 07:30 03/05/21 08:58 DC Vancomycin HCl 1 gm/Sodium Chloride 250 ml @ 250 mls/hr Q12H 03/04/21 20:00 UNV Vancomycin HCl 2 gm/Sodium Chloride 500 ml @ 250 mls/hr 1X ONCE 03/04/21 19:00 03/04/21 20:59 DC 03/04/21 19:26 250 MLS/HR Vecuronium [place] (Norcuron Bolus) 6 mg PRN Q2HRS PRN 03/06/21 14:30 04/16/21 14:59 DC 03/16/21 10:16 5 MG Vitamin A/Vitamin D (Vitamin A & D Ointment) 1 reji PRN Q1HR PRN 03/10/21 01:45 03/20/21 09:34 1 REJI Zolpidem Tartrate (Ambien) 5 mg PRN QHS PRN 04/10/21 11:15 Lab Laboratory Tests Test 04/22/21 11:57 04/22/21 16:26 04/22/21 21:13 04/23/21 05:30 Glucose (Fingerstick) 232 mg/dL (70-99) 237 mg/dL (70-99) 273 mg/dL (70-99) White Blood Count 14.2 x10^3/uL (4.0-11.0) Red Blood Count 3.08 x10^6/uL (3.50-5.40) Hemoglobin 8.6 g/dL (12.0-15.5) Hematocrit 26.4 % (36.0-47.0) Mean Corpuscular Volume 86 fL (79-100) Mean Corpuscular Hemoglobin 28 pg (25-35) Mean Corpuscular Hemoglobin Concent 33 g/dL (31-37) Red Cell Distribution Width 14.9 % (11.5-14.5) Platelet Count 279 x10^3/uL (140-400) Neutrophils (%) (Auto) 63 % (31-73) Lymphocytes (%) (Auto) 22 % (24-48) Monocytes (%) (Auto) 11 % (0-9) Eosinophils (%) (Auto) 3 % (0-3) Basophils (%) (Auto) 1 % (0-3) Neutrophils # (Auto) 9.0 x10^3/uL (1.8-7.7) Lymphocytes # (Auto) 3.1 x10^3/uL (1.0-4.8) Monocytes # (Auto) 1.6 x10^3/uL (0.0-1.1) Eosinophils # (Auto) 0.5 x10^3/uL (0.0-0.7) Basophils # (Auto) 0.1 x10^3/uL (0.0-0.2) Sodium Level 134 mmol/L (136-145) Potassium Level 4.1 mmol/L (3.5-5.1) Chloride Level 97 mmol/L (98-107) Carbon Dioxide Level 30 mmol/L (21-32) Anion Gap 7 (6-14) Blood Urea Nitrogen 24 mg/dL (7-20) Creatinine 1.9 mg/dL (0.6-1.0) Estimated GFR (Cockcroft-Gault) 28.6 Glucose Level 161 mg/dL (70-99) Calcium Level 9.2 mg/dL (8.5-10.1) Test 04/23/21 08:09 Glucose (Fingerstick) 286 mg/dL (70-99) Results All relevant outside records, renal labs, imaging studies, telemetry/EKG's were reviewed. Justicifation of Admission Dx: Justifications for Admission: Justification of Admission Dx: N/A GIGI CARMEN MD Apr 23, 2021 10:21
[2021-04-23 11:00] VITALS: BP 130/68
--- NOTE | 2021-04-23 11:12 | PDOC ---
[employer] PROGRESS NOTE Date of Service DOS: DATE: 04/23/21 TIME: 11:09 Chief Complaint Chief Complaint COVID-19 acute hypoxic respiratory failure DKA Hypotension Nausea Vomiting Combined metabolic and respiratory acidosis Acute electrolyte derangementhyponatremia, hypochloremia due to volume deple tion Hyperglycemia BOB due to ATN, requiring dialysis Erythrocytosis Candiduria Sacral decubitus ulcer S/P Trach on (03/17/21) Trach cultures positive for [place] albicans and now acinebacter ursungi History of Present Illness History of Present Illness 04/23: Slightly tachycardic this morning, on trach collar with 8 L. Still with some nausea and vomiting. Reconsult GI with some concerns of possible gastroparesis. Continue to monitor off antibiotics and monitor kidney function. 04/22: No acute events overnight, resting comfortably in bed. Creatinine 2.0 today, EGFR 26.9. She is self-pay and med assist following and waiting spouse to provide information to complete necessary applications. Continue to monitor kidney function and monitor off antibiotics. 04/21: Afebrile, resting comfortably in bed. Kidney function remained stable, creatinine 1.8, eGFR 30.4. I believe plans per nephrology are to remove HD line today. We will continue to monitor off antibiotics. director volunteer services working with to help with emergency Medicare. 04/20: Afebrile, breathing on 10 L trach shield. Had some itching today; ordered as needed Benadryl. Kidney function improved and appears to be stable. Per nephrology, possible HD line removal tomorrow. Per ID, will monitor off antibiotics. 04/19 Patient evaluated and examined at bedside. Sugars pretty high today will need more insulin adjustments. On trach collar when I saw her. Continue diet as tolerated. Discussed with at bedside. Diet as tolerated. Working towards discharge. Continue antibiotics. Will ask renal if temporary HD catheter is still needed if not can remove. 04/18 Patient evaluated examined at bedside. She was on trach collar. Continue regular diet as tolerated. Monitoring blood pressure. Working towards discharge. 04/17 Patient evaluated and examined at bedside. She is pretty alert today. Underwent video swallow study earlier and cleared for regular diet with thin liquids. Definite improvement for her. On trach collar when I saw her. Continue current treatments. Watch blood pressure. If she well keep up a consistent amount of p.o. intake may be able to stop tube feeds and PEG tube removal. But this is far down the line. 04/16 Patient seen examined at bedside. Transfer out of the ICU yesterday. Speech therapy to evaluate this morning. Improved notably since I last saw her in the ICU. Continue PEG feeds. Blood pressure treatment. Plan of care discussed with bedside RN. 04/15/2021 Patient seen and examined in the ICU She has clean dry intact tracheostomy with trach shield PEG feeds running at 30 cc an hour She really wants to drink water I told her that we are awaiting speech therapy to reevaluate her Chart reviewed Discussed with RN 04/14/2021 Patient seen and examined in the ICU She remains pleasantly confused Has a new PEG in place Discussed with physical therapy Discussed with RN Chart reviewed 04/13/2021 Patient seen and examined in the ICU She is pleasantly confused Sedated with Precedex and fentanyl I discussed with the speech therapist the patient has no laryngeal movement Now she is n.p.o. again Going for new PEG placement in interventional radiology hopefully later today Her trach is clean Chart reviewed Discussed with RN 04/12/2021 Patient seen and examined in the ICU Her is present today and seems to be good support for her Chart reviewed Discussed with RN Still sedated with Precedex and fentanyl but awake 04/11/2021 Patient seen and examined in the ICU She remains quite confused currently sedated Chart reviewed Discussed with RN Had some nausea vomiting last night Pulled out her PEG yesterday Currently on fentanyl and Precedex IV Zyvox hanging 04/10/2021 Patient seen and examined in the ICU She is pleasantly confused Has a trach shield in place Discussed with RN Chart reviewed We are adding in some as needed Ativan and scheduled Prozac Ms Borges is a 46 year old female who presented with nausea/vomiting since 7 AM 02/06/2021 in the morning. Patient stated that her recently tested positive for Covid. She states that he "coughed in my face because he thought it was funny." She reports subjective fevers and chills and nausea/vomiting. Denies sore throat, cough, shortness of breath. No chest pain. Does have some upper abdominal discomfort after vomiting, that she attributes to muscular strain. She was not vaccinated for Covid. 02/08: No acute events overnight. Patient seen and examined bedside and resting comfortably. Continues to complain of nausea not able to tolerate any diet at this time. Saturating 98% on room air. Patient's chart, labs, images were reviewed and discussed with RN 02/09: Afebrile, currently breathing on room air. Still with complaints of nausea and vomiting x3 today. States that she has history of similar symptoms that have been mildly improved with IV Dilaudid. 02/10: Patient febrile today with T-max 102.2 F. She still admits to nausea, denies any further vomiting. We will continue to provide supportive care and monitor for any recurrent fevers overnight. Patient continues to improve may discharge tomorrow to continue self-isolation. 02/11: Febrile overnight, T-max 102.3 F. She did become hypoxic overnight, currently breathing on 4 L nasal cannula. Also admits to associated vomiting or diarrhea overnight. Discussed with RN, will initiate remdesivir and closely monitor LFTs. IV Decadron, and prophylactic antibiotics. 02/12: Low-grade fever overnight, T-max 99.7. Currently breathing on room air. Will discontinue remdesivir, steroids, and antibiotics; will observe overnight. Still with complaints of vomiting x1 and diarrhea. We will continue to provide supportive care and hope to discharge in the next day or so. 02/13: Afebrile. Still complains of intermittent diarrhea. At the time of my ev aluation she was breathing on 6 L nasal cannula; this is somewhat misleading as patient states that she did not feel short of breath but was placed on 6 L by nursing staff overnight. 02/14: Afebrile, currently breathing on 8 L nasal cannula. There has been some misleading documentation, chart oxygen this patient is requiring. Discussed with RN, will resume remdesivir to complete total of 5 days. Continue to monitor LFTs. Will add steroids, Rocephin, and azithromycin. 02/15: Afebrile. Became much more hypoxic overnight, requiring BiPAP. At the time of my evaluation she is still breathing on BiPAP. Consultation was placed to pulmonology. Had discussion with Dr. Myrick about initiating Tocilizumab 02/16: No acute events overnight. Patient becoming more hypoxic saturating 94% and requiring BiPAP. Patient will be transferred to the ICU at this time. For worsening clinical status. Discussed with pulmonary. Patient's chart, labs, images were reviewed and discussed with RN 02/17: Transferred to ICU yesterday afternoon. Seen and examined at bedside she remains on 100% FiO2 on BiPAP. Respirations do appear somewhat labored. Suspect intubation may be impending. We will closely monitor. Increase lisinopril to 20 today. 02/18: Patient required intubation yesterday afternoon. Saw and examined this morning. She is intubated and sedated. Increase insulin today. Covid protocol ordered. Wean as tolerated. Plan of care discussed with bedside nurse. 02/19: Bedside. She remains intubated and sedated. Continue Covid protocol. Wean oxygen sedation as tolerated. Pulmonary following. Plan of care discussed with bedside RN. 02/20: Patient seen and examined at bedside. She remains intubated and sedated. No major clinical changes. Continue current treatment. Pulmonary following. Plan of care discussed with bedside RN. 02/21: Patient seen and examined at bedside. Remains intubated and sedated date and admission clinical changes. Increase free water flushes today due to hypernatremia. Plan of care discussed with bedside nurse. 02/22: Patient seen and examined at bedside. O2 requirement actually improving, although remains intubated. Possible SBT in the coming days. Hypernatremia improving. Plan of care discussed bedside RN. 02/23: Patient remains in ICU on ventilator with FiO2 100%, PEEP 7. Repeat chest x-ray yesterday showed diffuse bilateral pulmonary opacities with no interval improvement. Will discontinue Rocephin and initiate Zosyn. We will continue IV steroids for a full 10-day course 02/24: Afebrile. On vent with FiO2 40%, PEEP 6. Her Coreg has been held due to persistent bradycardia. No documented history of systolic heart failure or previous echocardiogram. Will need to obtain echocardiogram prior to discharge. Continue IV steroids and antibiotics. 02/25: Afebrile. Remains ventilated with FiO2 45%, PEEP 6. Chest x-ray today showed slight improvement of the pulmonary infiltrates, no pneumothorax. Completed 10-day course of IV Decadron. Will initiate slow Solu-Medrol taper. Continue IV Zosyn. Continue supportive care. 02/26: Afebrile. On vent with FiO2 45%, PEEP 6. Completed 10 days of IV Decadron. Will continue IV Zosyn. Continue supportive care. Critical care time 30 minutes spent reviewing charts, reviewing imaging, reviewing labs, discussion with RN. 02/27: Afebrile. On vent with FiO2 45%, PEEP 6. Completed 10 days of steroids and completed remdesivir. Continue with IV Zosyn. CPAP trial yesterday. Continue NG tube and supportive care. 02/28:. Patient remains on vent with FiO2 40%, PEEP 5. Afebrile. Completed steroids and remdesivir. Some noted hypoglycemia overnight, will de-escalate basal insulin. Continue IV Zosyn. Ventilator management per pulmonology. Continue NG tube and supportive care. 03/01: On vent with FiO2 40%, PEEP 5. Afebrile. Completed steroids and remdesivir. Blood glucose well controlled. Continue empiric antibiotics with Zosyn. Ventilator management per pulmonology. Continue NG tube and supportive care. 03/02: No acute events overnight. Patient hypotensive the morning due to over sedation. Will wean off sedation and keep antihypertensive medications on board. Currently saturating 100% on vent settings of 18/450/40/5. Will attempt spontaneous breathing trial today to see how patient does. 03/03: No acute events overnight. Patient saturating 98% on vent settings of 18/450/40/5. Will defer spontaneous breathing trials to pulmonary at this time. Patient's chart, labs, images were reviewed and discussed with RN 8/: No acute events overnight. Patient saturating 9 9% on vent settings of 18/450/30/5. Patient currently is unable to tolerate weaning. Per pulmonary. Patient's chart, labs, images were reviewed and discussed with RN 8/: No acute events overnight. Patient is saturating 97% on vent settings of 18/450/55/5. Her FiO2 needs to be increased due to abnormal ABG with 7.3 /58/24. Patient's chart, labs, images were reviewed and discussed with RN 8/: No acute events overnight. Patient saturating 94% on vent settings of 18/450/55/5. Chest x-ray showing increase in pulmonary infiltrates. Wound care is consulted for decubitus ulcer patient's chart, labs, images were reviewed and discussed with RN 8/: No acute events overnight. Patient saturating 94% on vent settings of 20/450/70/8. Patient now heading into renal failure with her creatinine bumped up from 1.5-4.2. Decreased urine output. Plan for hemodialysis today and temporary catheter placement and nephrology is consulted. 03/08: No acute events overnight. Patient did have a nausea vomiting episode and tube feeds were held. KUB repeat shows NG tube still in the stomach. Will resume tube feeds at trickle and advance to goal today. Will start hemodialysis soon. 03/09: Seen on vent /450/60%/8. ABG 7.2 WBC 11.4, Hb 7.4, platelets 188, NA 131, K4.9, BUN 48, CR 51, glucose 199, phosphorus 7.9, mag 2.2, AST 265 ALT 219, albumin 1.1. Chest radiograph appears unchanged from prior. Dialysis x1 today 03/10: Afebrile. Seen on vent, /450/60/7 with ABG 7.3 . Tolerated dialysis well on 03/09. LFTs similar. 03/11: Afebrile. Seen on vent, sedated. Still requiring Levophed for BP support. WBC 16.7, Hb 8.1, NA 130, ABG 7.3 on 55% FiO2 PEEP 6. On Zosyn and Zyvox Diflucan. Dialysis today 03/12: Afebrile. Still requiring Levophed for BP support sedated with Versed febrile Precedex. WBC 16.1, Hb 8.5, platelets 185, NA 133. Trach plan tentatively 03/17. O2 saturations 93% on 50% FiO2 PEEP 6. ABG 7. On Zosyn and Zyvox Diflucan. 03/13: Afebrile. Still on Levophed for BP support lightly sedated. 7. on 45% FiO2. Plan for dialysis today. On Zosyn and Zyvox Diflucan. More swollen today. 03/14: Afebrile. Weaning down off Levophed. WBC 14.9 NA 132. O2 saturations 92% on 45% FiO2 PEEP 5. Afebrile. O2 saturations 91% on FiO2 45% PEEP 6. Continued on Zosyn and Zyvox Diflucan. Tentative trach planned 03/17/2021 CC time 31 minutes 03/16/21: Patient seen and examined in ICU. Periorbital as well as upper and lower extremity edema noted. OG feed running at 30cc/hr. Still on vent on pressure control with a rate of 24 with 45% FiO2. Patient has rectal bag. Currently she has 98% O2 sat. Currently sedated with Dexmedetomidine, Propofol, Versed, and Fentanyl. Discussed with RN. Chart reviewed. 03/17/21: Patient was seen and examined in the ICU today. Periorbital edema as well as abdominal and mons pubis edema was noted. Patient still on vent on pressure control with Fi02 of 45% plus 6 PEEP. Patient had rectal bag. Currently sedated on Dexmedetomidine, Propofol, Versed, and Fentanyl. Discussed with RN. Chart reviewed. 03/18/21: Patient seen and examined in ICU. On vent via trach that was placed yesterday. Vent settings are Pressure Control of 40 with FiO2 of 45% and 6 PEEP. Trach clean and dry. Orbital swelling still present. Pupils are sluggish. Patient on TPN running at 30cc/hr. Kern to bedside and rectal bag in place. Current O2 sat at 94%. Sedated on Dexmedetomidine, Propofol, Versed, and Fentanyl. Discussed with RN. Chart reviewed. 03/19/21: Patient was seen and examined in the ICU today. Currently on vent via trach on pressure control of 42, rate of 24, FiO2 of 45%, and 6 PEEP. O2 sat is at 97% while patient is being examined. Trach is clean and dry. PICC line is in place on right arm. Periorbital swelling has decreased slightly since examined yesterday. Patient is sedated on Dexmedetomidine, Propofol, Versed, and Fentanyl. Discussed with RN. Chart reviewed. 03/20/21: Patient seen and examined in the ICU. Periorbital edema is slightly decreased since yesterday. O2 sat while being examined was 93%. NG tube in place and running at 30cc/hr. Patient on vent via trach on pressure control of 40 with FiO2 of 45 and rate of 24. Sedated on Dexmedetomidine, Propofol, Versed, and Fentanyl. PICC line in place. Kern to bedside. Rectal bag present. Discussed with RN. Chart reviewed. 03/21/21: Patient was seen and examined in the ICU today. She was semi-sedated.. She was on Dexmedetomidine and Fentanyl. We are holding the Propofol. Her eyes were periodically open but she was not making meaningful eye contact or track ing. On vent via trach with pressure control of 40 and FiO2 at 45. Rate was 24. PEEP was 5. Trach was clean and dry. While being examined, her O2 sat was 94%. Rectal bag and Kern to bedside in place. NG tube in place and feeding at 30cc/hr. IV fluids still running. Levophed has been stopped. Discussed with RN. Chart reviewed. 03/22/21: Patient was seen and examined in the ICU. She was semi-sedated on Propofol and Dexmedetomidine. Her eyes were open but she did not make meaningful eye contact. Her blood pressure was elevated (198/102) while being examined and she had just been given hydralazine to lower it. There are plans to place a PEG tube tomorrow. Currently on vent via trach on pressure control of 40 with FiO2 of 45%, 5 PEEP, and a rate of 24. Current O2 sat is 98%. She is feeding through an NG tube at 30cc/hr. Rectal bag and Kern to bedside present. SCDs on patient for DVT prophylaxis. She did not do her daily dialysis today but the plan is to start back on that tomorrow. Discussed with RN. Chart reviewed. 03/23/2021: Patient remains in ICU on ventilator. FiO2 40%, PEEP 5. Trach cultures positive for [place] albicans and acinebacter ursungi. We will continue treatment with IV antibiotics and micafungin, per ID. HD per nephrology. Plans for PEG tube placement today. 30 minutes critical care time was spent reviewing charts, reviewing labs, reviewing imaging, discussion with RN. 03/24/2021: Afebrile. On vent with FiO2 45%, PEEP 5. Had attempted PEG placement per GI yesterday, but unable to locate safe path for PEG; will consider surgical opinion. Once PEG is in place she should be stable for LTAC transfer when accepted. Continue antibiotics, per ID. 30 minutes critical care time was spent reviewing charts, reviewing labs, reviewing imaging, discussion with RN. 03/25/2021: Febrile overnight with T-max 101.5 F. On vent with FiO2 45%, PEEP 5. Surgery has been consulted with tentative plans for laparoscopic versus open gastrostomy placement tomorrow. Trach cultures positive for [place] albicans and now acinebacter ursungi; will continue antibiotic management, per ID. Hemodialysis, per nephrology. Patient needing LTAC placement, but currently without benefits. acetone recovery worker following for discharge planning. Critical care time 30 minutes spent reviewing charts, reviewing labs, reviewing imaging, discussion with RN. 03/26/2021: Febrile today with T-max 100.5 F. Awake on vent with FiO2 45%, PEEP 5. When I ask if she remembers any she nods. G-tube placement scheduled for tomorrow, per general surgery. Chest x-ray today showed slight interval increase in diffuse infiltrate. Continue antibiotic management, per ID. Hemodialysis per nephrology. Reportedly did not tolerate CPAP trial this morning. acetone recovery worker following for LTAC placement. Critical care time 30 minutes spent reviewing charts, reviewing labs, reviewing imaging, discussion with RN. 03/27/2021: On vent with FiO2 45%, PEEP 5. Afebrile today. Continue treatment of acute renal failure requiring HD, per nephrology. Monitor kidney function for recovery. G-tube placement scheduled for today, per general surgery. Likely LTAC placement soon, but this is been a difficult as she is self-pay without benefits; social service liaison following. Critical care time 30 minutes spent reviewing charts, reviewing labs, reviewing imaging, discussion with RN. 03/28/2021: Afebrile. On vent with FiO2 40%, PEEP 5. Had laparoscopic gastrostomy tube placed yesterday, per general surgery. Continue treatment of acute renal failure requiring HD, per nephrology. Continue IV antibiotics, per ID. Likely LTAC placement soon, but this is been a difficult as she is self-pay without benefits; social service liaison following. Critical care time 30 minutes spent reviewing charts, reviewing labs, reviewing imaging, discussion with RN. 03/29/2021: Afebrile. On vent with FiO2 45%, PEEP 5. S/P laparoscopic gastrostomy tube; tube feeds running. HD, per nephrology. Continue meropenem, per ID. Anticipate LTAC placement soon now that PEG has being placed; social service liaison helping in these regards. Critical care time 30 minutes spent reviewing charts, reviewing labs, reviewing imaging, discussion with RN. 03/30 No major events or clinical changes overnight. Patient evaluated at bedside this morning on trach and G-tube. Tolerating these well. Has been working on insurance for patient for placement as she will need long-term care. Guarded prognosis. Plan of care discussed with bedside nurse. 03/31 No major clinical changes. Remains trached. Sedated. Continue current plan. 04/01 No changes. Patient resting in bed when evaluated sedated. is supposed to be working on insurance for placement for the patient. Otherwise no changes. 04/02 Patient febrile overnight, daptomycin added this morning per infectious disease. Otherwise no major clinical changes. Awaiting insurance. Infectious disease, pulmonary and renal following. Plan of care discussed with bedside RN. 04/03 Patient undergoing dialysis today. Evaluated at bedside this morning. otherwise continue current plan. supposed working on insurance. 04/04 No major overnight changes. Continue current plan. 04/05 Patient notably more movement this morning eyes open resting in bed otherwise no major changes. Continue current plan. Insurance pending. 04/06 Patient notably more movement this morning eyes open resting in bed current plan. Insurance pending. Continue daptomycin, renal dosing April 02 F/U Blood culture UA urine culture C. diff PCR negative 32 min cc time 04/07 Patient notably more movement this morning eyes open resting in bed current plan. Insurance pending. Continue daptomycin, renal dosing April 02 F/U Blood culture UA urine culture C. diff PCR negative Abnormal chest x-ray consistent with COVID-19 viral pneumonia. Diabetic ketoacidosis--resolved obesity contributing to hypoxia as well. BOB . hemodialysis started 03/07 DVT GI prophylaxis Nutritional support 34 min cc time 04/08 Patient notably more movement this morning eyes open resting in bed current plan. Insurance pending. Continue daptomycin, renal dosing April 02 F/U Blood culture UA urine culture C. diff PCR negative s/p lap G-tube 03/27 Abnormal chest x-ray consistent with COVID-19 viral pneumonia. Diabetic ketoacidosis--resolved obesity contributing to hypoxia as well. BOB . hemodialysis started 03/07 DVT GI prophylaxis Nutritional support Right PICC line February 14 out; left PICC line 04/07/2021 Right IJ HDC clean March 07 32 min cc time 04/09 non Oliguric for past 11/2 -2 weeks , good response to IV NS bolus .requiring dialysis., currently on MWF schedule, tolerating trach shield well.using her speaking valve./ resting in bed current / states she feels better Start iv Zyvox Cont Meropenem DC daptomycin post PICC line exchange aspiration precautions C. diff PCR negative F/U Blood culture UA urine culture s/p lap G-tube 03/27 Abnormal chest x-ray consistent with COVID-19 viral pneumonia. Diabetic ketoacidosis--resolved obesity contributing to hypoxia as well. BOB . hemodialysis started 03/07 DVT GI prophylaxis Nutritional support Right PICC line February 14 out; left PICC line 04/07/2021 Right IJ HDC clean March 07 34 min cc time Vitals/I&O Vitals/I&O: Vital Signs Date Time Temp Pulse Resp B/P (MAP) Pulse Ox O2 Delivery O2 Flow Rate FiO2 04/23/21 08:00 Trach Collar 8.0 04/23/21 07:41 100 04/23/21 07:00 98.9 112 18 134/63 (86) 98.9 I & O 04/22/21 04/22/21 04/23/21 15:00 23:00 07:00 Intake Total 220 ml 0 ml 740 ml Output Total 1050 ml 1575 ml 1300 ml Balance -830 ml -1575 ml -560 ml Physical Exam Physical Exam: GENERAL: No acute distress HEENT: Normocephalic, atraumatic. Anicteric. Neck right IJ HDC clean Trach + capped LUNGS: Decreased breath sounds otherwise clear HEART: S1, S2. No murmurs. ABDOMEN: Obese, soft. Bowel sounds present. Nontender, nondistended. PEG tube pulled out by patient EXTREMITIES: Edema present no cyanosis. CENTRAL NERVOUS SYSTEM: Intubated. PSYCHIATRIC: Confused Derm has pressure wounds wound pictures noted in chart. Generalized rash, Right PICC line removed; left PICC line 04/07/2021 Right IJ HDC clean March 07 General: Cooperative, No acute distress Heart: Regular rate, Normal S1, Normal S2 Lungs: Crackles Abdomen: Soft, Other (ND) Extremities: No cyanosis, Other (ANASARCA) Skin: No rashes, No significant lesion Labs Labs: Laboratory Tests Test 04/22/21 11:57 04/22/21 16:26 04/22/21 21:13 04/23/21 05:30 Glucose (Fingerstick) 232 mg/dL (70-99) 237 mg/dL (70-99) 273 mg/dL (70-99) White Blood Count 14.2 x10^3/uL (4.0-11.0) Red Blood Count 3.08 x10^6/uL (3.50-5.40) Hemoglobin 8.6 g/dL (12.0-15.5) Hematocrit 26.4 % (36.0-47.0) Mean Corpuscular Volume 86 fL (79-100) Mean Corpuscular Hemoglobin 28 pg (25-35) Mean Corpuscular Hemoglobin Concent 33 g/dL (31-37) Red Cell Distribution Width 14.9 % (11.5-14.5) Platelet Count 279 x10^3/uL (140-400) Neutrophils (%) (Auto) 63 % (31-73) Lymphocytes (%) (Auto) 22 % (24-48) Monocytes (%) (Auto) 11 % (0-9) Eosinophils (%) (Auto) 3 % (0-3) Basophils (%) (Auto) 1 % (0-3) Neutrophils # (Auto) 9.0 x10^3/uL (1.8-7.7) Lymphocytes # (Auto) 3.1 x10^3/uL (1.0-4.8) Monocytes # (Auto) 1.6 x10^3/uL (0.0-1.1) Eosinophils # (Auto) 0.5 x10^3/uL (0.0-0.7) Basophils # (Auto) 0.1 x10^3/uL (0.0-0.2) Sodium Level 134 mmol/L (136-145) Potassium Level 4.1 mmol/L (3.5-5.1) Chloride Level 97 mmol/L (98-107) Carbon Dioxide Level 30 mmol/L (21-32) Anion Gap 7 (6-14) Blood Urea Nitrogen 24 mg/dL (7-20) Creatinine 1.9 mg/dL (0.6-1.0) Estimated GFR (Cockcroft-Gault) 28.6 Glucose Level 161 mg/dL (70-99) Calcium Level 9.2 mg/dL (8.5-10.1) Test 04/23/21 08:09 Glucose (Fingerstick) 286 mg/dL (70-99) Assessment and Plan Assessmemt and Plan Problems Medical Problems: (1) Ketoacidosis Status: Acute Comment Review of Relevant I have reviewed the following items mazin (where applicable) has been applied. Medications: Current Medications Medications (Trade) Dose Ordered Sig/Pepe Route PRN Reason Start Time Stop Time Status Last Admin Dose Admin Insulin Glargine (Lantus Syringe) 15 unit BID SQ 04/22/21 21:00 04/23/21 09:36 Justifications for Admission Other Justification SANDI ALCARAZ MD Apr 23, 2021 11:12
[2021-04-23] MEDS: ONDANSETRON PF 4 MG/2 ML VIAL. IVP PRN (11:32)
[2021-04-23] MEDS: diphenhydrAMINE ORAL ELIXIR 12.5 MG/5 ML ML PEG PRN ×2 (11:51→22:28)
--- NOTE | 2021-04-23 14:08 | NUR ---
SS following up with discharge planning. SS reviewed pt chart and discussed with pt RN. Pt is currently requiring oxygen via trach shield at 35% when speaking valve is off and room air with speaking valve on. Pt on PO diet. Pt having nausea, vomiting, and abdominal pain again today. PT/OT recommending acute rehabilitation. Self pay. Med Assist following. SS will continue to follow for discharge planning.
--- NOTE | 2021-04-23 14:36 | PDOC ---
Date of Service: DATE: 04/23/21 TIME: 14:28 Subjective: Subjective: Asked to re-visit for vomiting. Pt eating salad when we saw her this afternoon. Says she thinks she was overzealous earlier and that contributed to vomiting. Unclear timing (how soon after eating). Reviewed chart and d/w nurse - vomiting solid food after eating. No abd pain. Objective: Vital Signs: Vital Signs Date Time Temp Pulse Resp B/P (MAP) Pulse Ox O2 Delivery O2 Flow Rate FiO2 04/23/21 12:04 100 Tracheal Collar 8.0 04/23/21 11:00 98.6 118 18 130/68 (88) 98.6 Labs: Laboratory Tests Test 04/22/21 16:26 04/22/21 21:13 04/23/21 05:30 04/23/21 08:09 Glucose (Fingerstick) 237 mg/dL 273 mg/dL 286 mg/dL White Blood Count 14.2 x10^3/uL Red Blood Count 3.08 x10^6/uL Hemoglobin 8.6 g/dL Hematocrit 26.4 % Mean Corpuscular Volume 86 fL Mean Corpuscular Hemoglobin 28 pg Mean Corpuscular Hemoglobin Concent 33 g/dL Red Cell Distribution Width 14.9 % Platelet Count 279 x10^3/uL Neutrophils (%) (Auto) 63 % Lymphocytes (%) (Auto) 22 % Monocytes (%) (Auto) 11 % Eosinophils (%) (Auto) 3 % Basophils (%) (Auto) 1 % Neutrophils # (Auto) 9.0 x10^3/uL Lymphocytes # (Auto) 3.1 x10^3/uL Monocytes # (Auto) 1.6 x10^3/uL Eosinophils # (Auto) 0.5 x10^3/uL Basophils # (Auto) 0.1 x10^3/uL Sodium Level 134 mmol/L Potassium Level 4.1 mmol/L Chloride Level 97 mmol/L Carbon Dioxide Level 30 mmol/L Anion Gap 7 Blood Urea Nitrogen 24 mg/dL Creatinine 1.9 mg/dL Estimated GFR (Cockcroft-Gault) 28.6 Glucose Level 161 mg/dL Calcium Level 9.2 mg/dL Test 04/23/21 11:56 Glucose (Fingerstick) 295 mg/dL Imaging: Videos[place]allow 04/17 IMPRESSION: Trace shallow penetration of thin barium consistency from a straw. No evidence of aspiration. Please refer to the report by the speech pathologist for clinical recommendations. PE: GEN: NAD, eating enthusiastically HEENT: trach collar 8L LUNGS: clear anteriorly HEART: RRR, ABD: NABS, S/ND/NT, G tube in place EXTREMITY: No edema SKIN: No rashes, no jaundice NEURO/PSYCH: A & O 3 A/P: COVID recovered Resp failure s/p trach and surgical G tube Chronic anemia, BOB (did require HD), DM (A1c 6.6) -- Observe. If vomiting recurs, consider UGI to evaluate G tube balloon location. If unrevealing, consider GES. 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 Has Reglan ordered PRN - last received in February. Justicifation of Admission Dx: Justifications for Admission: Justification of Admission Dx: N/A JANELLE MONTENEGRO Apr 23, 2021 14:36
[2021-04-23 15:00] VITALS: BP 174/83
[2021-04-23 19:00] VITALS: BP 136/83
[2021-04-23] MEDS: ATORVASTATIN CALCIUM 40 MG TABLET. PO SCH (21:00)
[2021-04-23] MEDS: guaiFENesin DM 200MG/20MG 10 ML SYRUP PO PRN (22:12)
[2021-04-23] MEDS: ACETAMINOPHEN 650 MG/20.3 ML SOLUTION. PEG PRN (22:29)
[2021-04-23] MEDS: PROCHLORPERAZINE 10 MG/2 ML VIAL. IV PRN (22:30)
[2021-04-23 22:54] VITALS: BP 139/73
[2021-04-23] MEDS ORDERED: INSULIN LISPRO 300 UNITS/3 ML VIAL. SQ ONE (23:15)
[2021-04-24 02:56] VITALS: BP 125/71
[2021-04-24] MEDS: HEPARIN for SUB-Q USE 5,000 UNIT/ML VIAL. SQ SCH ×3 (05:18→22:14)
[2021-04-24 06:01] LABS: BASO # 0.1 x10^3/uL (0.0-0.2); BASO % 1 % (0-3); EOS # 0.4 x10^3/uL (0.0-0.7); EOS % 4 % (0-3); HEMATOCRIT 25.8 % (36.0-47.0); HEMOGLOBIN 8.6 g/dL (12.0-15.5); LYMPH # 2.6 x10^3/uL (1.0-4.8); LYMPH % 21 % (24-48); MEAN CORPUSCULAR HEMOGLOBIN 28 pg (25-35); MEAN CORPUSCULAR HGB CONC 33 g/dL (31-37); MEAN CORPUSCULAR VOLUME 85 fL (79-100); MONO # 1.3 x10^3/uL (0.0-1.1); MONO % 11 % (0-9); NEUT # 7.7 x10^3/uL (1.8-7.7); NEUT % 64 % (31-73); PLATELET COUNT 271 x10^3/uL (140-400); RED BLOOD COUNT 3.03 x10^6/uL (3.50-5.40); RED CELL DISTRIBUTION WIDTH 14.5 % (11.5-14.5); WHITE BLOOD COUNT 12.2 x10^3/uL (4.0-11.0)
[2021-04-24 06:10] LABS: CALCIUM 9.4 mg/dL (8.5-10.1); CREATININE 2.1 mg/dL (0.6-1.0); GFR 25.5; POTASSIUM 4.3 mmol/L (3.5-5.1)
[2021-04-24 07:00] VITALS: BP 189/86
[2021-04-24] MEDS: ONDANSETRON PF 4 MG/2 ML VIAL. IVP PRN ×2 (07:37→19:21)
[2021-04-24] MEDS: FAMOTIDINE 20 MG/2 ML VIAL IVP SCH (07:37)
[2021-04-24] MEDS: IPRATRPIUM/ALBUTEROL 0.5/2.5MG 3 ML NEBU. NEB SCH ×4 (08:00→20:00)
[2021-04-24] MEDS: NYSTATIN TOPICAL POWDER 15GM BOTTLE. TP SCH ×2 (09:00→21:00)
[2021-04-24] MEDS: MULTIVITAMINS,THERAPEUTIC 5 ML ORAL LIQUID. PEG SCH (09:06)
[2021-04-24] MEDS: DOCUSATE 100 MG/10 ML SOLUTION. PO SCH ×2 (09:06→22:13)
[2021-04-24] MEDS: INSULIN GLARGINE SYRINGE. SQ SCH ×2 (09:16→22:15)
[2021-04-24] MEDS: INSULIN LISPRO 300 UNITS/3 ML VIAL. SQ SCH ×4 (09:16→21:00)
[2021-04-24] MEDS: PROCHLORPERAZINE 10 MG/2 ML VIAL. IV PRN (09:54)
[2021-04-24 11:00] VITALS: BP 163/95
--- NOTE | 2021-04-24 11:03 | PDOC ---
Renal-Progress Notes Subjective Notes Notes NO NEW COMPLAINTS History of Present Illness Hx of present illness IMPROVED Vitals Vitals Vital Signs Date Time Temp Pulse Resp B/P (MAP) Pulse Ox O2 Delivery O2 Flow Rate FiO2 04/24/21 08:59 100 Tracheal Collar 8.0 04/24/21 07:00 98.5 117 16 189/86 (120) 98.5 Weight Weight [ ] I.O. Intake and Output Intake and Output 04/24/21 07:00 Intake Total 1318 ml Output Total 3850 ml Balance -2532 ml Intake Oral 1318 ml Output Urine Total 3850 ml # Bowel Movements 1 Labs Labs Laboratory Tests Test 04/23/21 11:56 04/23/21 16:07 04/23/21 20:32 04/24/21 05:30 Glucose (Fingerstick) 295 mg/dL (70-99) 207 mg/dL (70-99) 360 mg/dL (70-99) White Blood Count 12.2 x10^3/uL (4.0-11.0) Red Blood Count 3.03 x10^6/uL (3.50-5.40) Hemoglobin 8.6 g/dL (12.0-15.5) Hematocrit 25.8 % (36.0-47.0) Mean Corpuscular Volume 85 fL (79-100) Mean Corpuscular Hemoglobin 28 pg (25-35) Mean Corpuscular Hemoglobin Concent 33 g/dL (31-37) Red Cell Distribution Width 14.5 % (11.5-14.5) Platelet Count 271 x10^3/uL (140-400) Neutrophils (%) (Auto) 64 % (31-73) Lymphocytes (%) (Auto) 21 % (24-48) Monocytes (%) (Auto) 11 % (0-9) Eosinophils (%) (Auto) 4 % (0-3) Basophils (%) (Auto) 1 % (0-3) Neutrophils # (Auto) 7.7 x10^3/uL (1.8-7.7) Lymphocytes # (Auto) 2.6 x10^3/uL (1.0-4.8) Monocytes # (Auto) 1.3 x10^3/uL (0.0-1.1) Eosinophils # (Auto) 0.4 x10^3/uL (0.0-0.7) Basophils # (Auto) 0.1 x10^3/uL (0.0-0.2) Sodium Level 131 mmol/L (136-145) Potassium Level 4.3 mmol/L (3.5-5.1) Chloride Level 95 mmol/L (98-107) Carbon Dioxide Level 29 mmol/L (21-32) Anion Gap 7 (6-14) Blood Urea Nitrogen 30 mg/dL (7-20) Creatinine 2.1 mg/dL (0.6-1.0) Estimated GFR (Cockcroft-Gault) 25.5 Glucose Level 258 mg/dL (70-99) Calcium Level 9.4 mg/dL (8.5-10.1) Test 04/24/21 07:24 Glucose (Fingerstick) 283 mg/dL (70-99) Micro Micro Microbiology 04/02/21 Urine Culture - Final, Complete 04/02/21 Blood Culture - Final, Complete NO GROWTH AFTER 5 DAYS 03/16/21 Gram Stain Evaluation - Final, Complete 03/16/21 Respiratory Culture - Final, Complete 03/16/21 Antimicrobic Susceptibility - Final, Complete Review of Systems Constitutional: yes: other (UNABLE TO OBTAIN) Physical Exam General Appearance: no apparent distress Skin: warm Respiratory: decreased breath sounds Heart: S1S2 Abdomen: soft, bowel sounds present Extremities: pulses present Neurology: alert Assessment Assessment IMP [id number] HD ON [id number] WITH CR STABLE AT 2.0 HEMATURIA-COVID 19 RELATED GLUCOSURIA-IMPROVED BG CONTROL COVID 19 PNEUMONIA ACUTE RESP FAILURE-S/P TRACH DM II HTN OBESITY ANEMIA GENERALIZED EDEMA-STABLE LEUCOCYTOSIS HYPOKALEMIA-CORRECTED PLAN REMOVED TEMP HD LINE ANTIBIOTICS ID EVAL AND TX WILL AVOID DOYLE DUE TO THROMBOGENIC STATE WILL FOLLOW COLLIN ROLON MD Apr 24, 2021 11:03
--- NOTE | 2021-04-24 11:55 | PDOC ---
Date of Service: DATE: 04/24/21 TIME: 11:50 Subjective: Subjective: Denies vomiting. [place] sick earlier but nothing came up. Objective: Objective: D/w nurse - no vomiting but did c/o nausea. "Gagging" and using yankauer. Vital Signs: Vital Signs Date Time Temp Pulse Resp B/P (MAP) Pulse Ox O2 Delivery O2 Flow Rate FiO2 04/24/21 11:00 98.6 119 16 163/95 (117) 100 trech shield 8.0 98.6 Labs: Laboratory Tests Test 04/23/21 11:56 04/23/21 16:07 04/23/21 20:32 04/24/21 05:30 Glucose (Fingerstick) 295 mg/dL 207 mg/dL 360 mg/dL White Blood Count 12.2 x10^3/uL Red Blood Count 3.03 x10^6/uL Hemoglobin 8.6 g/dL Hematocrit 25.8 % Mean Corpuscular Volume 85 fL Mean Corpuscular Hemoglobin 28 pg Mean Corpuscular Hemoglobin Concent 33 g/dL Red Cell Distribution Width 14.5 % Platelet Count 271 x10^3/uL Neutrophils (%) (Auto) 64 % Lymphocytes (%) (Auto) 21 % Monocytes (%) (Auto) 11 % Eosinophils (%) (Auto) 4 % Basophils (%) (Auto) 1 % Neutrophils # (Auto) 7.7 x10^3/uL Lymphocytes # (Auto) 2.6 x10^3/uL Monocytes # (Auto) 1.3 x10^3/uL Eosinophils # (Auto) 0.4 x10^3/uL Basophils # (Auto) 0.1 x10^3/uL Sodium Level 131 mmol/L Potassium Level 4.3 mmol/L Chloride Level 95 mmol/L Carbon Dioxide Level 29 mmol/L Anion Gap 7 Blood Urea Nitrogen 30 mg/dL Creatinine 2.1 mg/dL Estimated GFR (Cockcroft-Gault) 25.5 Glucose Level 258 mg/dL Calcium Level 9.4 mg/dL Test 04/24/21 07:24 04/24/21 11:08 Glucose (Fingerstick) 283 mg/dL 293 mg/dL PE: GEN: NAD - was sleeping HEENT: trach shield HEART: tachycardic ABD: soft, G tube NEURO/PSYCH: A & O 3 A/P: COVID recovered Nausea Resp failure s/p trach and surgical G tube Chronic anemia, DM -- No vomiting today. If recurs, consider UGI, GES. 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 Justicifation of Admission Dx: Justifications for Admission: Justification of Admission Dx: N/A JANELLE MONTENEGRO Apr 24, 2021 11:55
--- NOTE | 2021-04-24 12:22 | NUR ---
SS following up with discharge planning. SS reviewed pt chart and discussed with pt RN. Pt decannulated today. COVID19 recovered. PO diet. PT/OT recommended acute rehabilitation. Self pay. [facility] following. Per [facility], pt's spouse contacted them and stated he would bring needed documents in today for Medicaid/Disability applications. SS will continue to follow for discharge planning.
--- NOTE | 2021-04-24 12:57 | PDOC ---
PULMONARY PROGRESS NOTES DATE: 04/24/21 TIME: 12:55 Subjective Marissa is not more short of breath, she has been using Passy-[place]erain valve no respiratory distress no productive cough Vitals Vital Signs Date Time Temp Pulse Resp B/P (MAP) Pulse Ox O2 Delivery O2 Flow Rate FiO2 04/24/21 11:00 98.6 119 16 163/95 (117) 100 trech shield 8.0 98.6 ROS: No Nausea, No Chest Pain, No Abdominal Pain, No Increase Cough Lungs: Crackles Cardiovascular: S1 Abdomen: Soft, Non-tender Neuro Exam: Alert, Normal Speech Skin: Warm Labs Laboratory Tests Test 04/22/21 16:26 04/22/21 21:13 04/23/21 05:30 04/23/21 08:09 Glucose (Fingerstick) 237 mg/dL (70-99) 273 mg/dL (70-99) 286 mg/dL (70-99) White Blood Count 14.2 x10^3/uL (4.0-11.0) Red Blood Count 3.08 x10^6/uL (3.50-5.40) Hemoglobin 8.6 g/dL (12.0-15.5) Hematocrit 26.4 % (36.0-47.0) Mean Corpuscular Volume 86 fL (79-100) Mean Corpuscular Hemoglobin 28 pg (25-35) Mean Corpuscular Hemoglobin Concent 33 g/dL (31-37) Red Cell Distribution Width 14.9 % (11.5-14.5) Platelet Count 279 x10^3/uL (140-400) Neutrophils (%) (Auto) 63 % (31-73) Lymphocytes (%) (Auto) 22 % (24-48) Monocytes (%) (Auto) 11 % (0-9) Eosinophils (%) (Auto) 3 % (0-3) Basophils (%) (Auto) 1 % (0-3) Neutrophils # (Auto) 9.0 x10^3/uL (1.8-7.7) Lymphocytes # (Auto) 3.1 x10^3/uL (1.0-4.8) Monocytes # (Auto) 1.6 x10^3/uL (0.0-1.1) Eosinophils # (Auto) 0.5 x10^3/uL (0.0-0.7) Basophils # (Auto) 0.1 x10^3/uL (0.0-0.2) Sodium Level 134 mmol/L (136-145) Potassium Level 4.1 mmol/L (3.5-5.1) Chloride Level 97 mmol/L (98-107) Carbon Dioxide Level 30 mmol/L (21-32) Anion Gap 7 (6-14) Blood Urea Nitrogen 24 mg/dL (7-20) Creatinine 1.9 mg/dL (0.6-1.0) Estimated GFR (Cockcroft-Gault) 28.6 Glucose Level 161 mg/dL (70-99) Calcium Level 9.2 mg/dL (8.5-10.1) Test 04/23/21 11:56 04/23/21 16:07 04/23/21 20:32 04/24/21 05:30 Glucose (Fingerstick) 295 mg/dL (70-99) 207 mg/dL (70-99) 360 mg/dL (70-99) White Blood Count 12.2 x10^3/uL (4.0-11.0) Red Blood Count 3.03 x10^6/uL (3.50-5.40) Hemoglobin 8.6 g/dL (12.0-15.5) Hematocrit 25.8 % (36.0-47.0) Mean Corpuscular Volume 85 fL (79-100) Mean Corpuscular Hemoglobin 28 pg (25-35) Mean Corpuscular Hemoglobin Concent 33 g/dL (31-37) Red Cell Distribution Width 14.5 % (11.5-14.5) Platelet Count 271 x10^3/uL (140-400) Neutrophils (%) (Auto) 64 % (31-73) Lymphocytes (%) (Auto) 21 % (24-48) Monocytes (%) (Auto) 11 % (0-9) Eosinophils (%) (Auto) 4 % (0-3) Basophils (%) (Auto) 1 % (0-3) Neutrophils # (Auto) 7.7 x10^3/uL (1.8-7.7) Lymphocytes # (Auto) 2.6 x10^3/uL (1.0-4.8) Monocytes # (Auto) 1.3 x10^3/uL (0.0-1.1) Eosinophils # (Auto) 0.4 x10^3/uL (0.0-0.7) Basophils # (Auto) 0.1 x10^3/uL (0.0-0.2) Sodium Level 131 mmol/L (136-145) Potassium Level 4.3 mmol/L (3.5-5.1) Chloride Level 95 mmol/L (98-107) Carbon Dioxide Level 29 mmol/L (21-32) Anion Gap 7 (6-14) Blood Urea Nitrogen 30 mg/dL (7-20) Creatinine 2.1 mg/dL (0.6-1.0) Estimated GFR (Cockcroft-Gault) 25.5 Glucose Level 258 mg/dL (70-99) Calcium Level 9.4 mg/dL (8.5-10.1) Test 04/24/21 07:24 04/24/21 11:08 Glucose (Fingerstick) 283 mg/dL (70-99) 293 mg/dL (70-99) Laboratory Tests Test 04/23/21 16:07 04/23/21 20:32 04/24/21 05:30 04/24/21 07:24 Glucose (Fingerstick) 207 mg/dL (70-99) 360 mg/dL (70-99) 283 mg/dL (70-99) White Blood Count 12.2 x10^3/uL (4.0-11.0) Red Blood Count 3.03 x10^6/uL (3.50-5.40) Hemoglobin 8.6 g/dL (12.0-15.5) Hematocrit 25.8 % (36.0-47.0) Mean Corpuscular Volume 85 fL (79-100) Mean Corpuscular Hemoglobin 28 pg (25-35) Mean Corpuscular Hemoglobin Concent 33 g/dL (31-37) Red Cell Distribution Width 14.5 % (11.5-14.5) Platelet Count 271 x10^3/uL (140-400) Neutrophils (%) (Auto) 64 % (31-73) Lymphocytes (%) (Auto) 21 % (24-48) Monocytes (%) (Auto) 11 % (0-9) Eosinophils (%) (Auto) 4 % (0-3) Basophils (%) (Auto) 1 % (0-3) Neutrophils # (Auto) 7.7 x10^3/uL (1.8-7.7) Lymphocytes # (Auto) 2.6 x10^3/uL (1.0-4.8) Monocytes # (Auto) 1.3 x10^3/uL (0.0-1.1) Eosinophils # (Auto) 0.4 x10^3/uL (0.0-0.7) Basophils # (Auto) 0.1 x10^3/uL (0.0-0.2) Sodium Level 131 mmol/L (136-145) Potassium Level 4.3 mmol/L (3.5-5.1) Chloride Level 95 mmol/L (98-107) Carbon Dioxide Level 29 mmol/L (21-32) Anion Gap 7 (6-14) Blood Urea Nitrogen 30 mg/dL (7-20) Creatinine 2.1 mg/dL (0.6-1.0) Estimated GFR (Cockcroft-Gault) 25.5 Glucose Level 258 mg/dL (70-99) Calcium Level 9.4 mg/dL (8.5-10.1) Test 04/24/21 11:08 Glucose (Fingerstick) 293 mg/dL (70-99) Medications Active Scripts Medications Dose Route/Sig Max Daily Dose Days Date Category Novolog Flexpen (Insulin Aspart) 100 Unit/1 Ml Insuln.pen 3-7 SQ TIDACHC 02/07/21 Reported Lisinopril 5 Mg Tablet 1 Tab PO DAILY 02/07/21 Reported Lantus Solostar (Insulin Glargine,Hum.rec.anlog) 100 Unit/1 Ml Insuln.pen 5 Unit SQ QHS 04/09/15 Reported Atorvastatin Calcium 40 Mg Tablet 40 Mg PO HS 04/09/15 Reported Impression . IMPRESSION: 1. Acute hypoxic respiratory failure secondary to COVID-19 viral pneumonia/acute lung injury and early acute respiratory distress syndrome. S/P intubation 02/17/21. Status post tracheostomy. Decannulated 04/24 2. Nonsmoker. 3. Abnormal chest x-ray consistent with COVID-19 viral pneumonia. 4. Diabetic ketoacidosis--resolved 5. Underlying obesity contributing to hypoxia as well. 6. BOB . hemodialysis started 03/07 7. Fever, 30 ID 8. Abnormal chest x-ray with diffuse interstitial infiltrates compatible with viral pneumonia 9. [place] in the sputum is a contamination 10. Septic shoc 11. s/p lap G-tube 03/27 12. Delirium Plan . Updated 04/24 I decannulated patient, no respiratory distress no stridor I walked back in 20 minutes later she was eating not having any respiratory distress Continue current support We will see as needed updated 04/21 Discussed with RT will change to 6 Shiley I occluded her current trach tube, patient was having difficulty breathing Will change to a 6 Shiley, smaller trach tube, hopefully she will be able to tolerate capping updated 04/20 Continue current care We will discussed with RT Trach shield for now updated 04/17 Patient asleep I did not wake her up Continue current support On visual inspection no respiratory distress was noted MONTEZ OROPEZA MD Apr 24, 2021 12:57
--- NOTE | 2021-04-24 13:19 | PDOC ---
[facility] PROGRESS NOTE Date of Service DOS: DATE: 04/24/21 TIME: 13:17 Chief Complaint Chief Complaint COVID-19 acute hypoxic respiratory failure DKA Hypotension Nausea Vomiting Combined metabolic and respiratory acidosis Acute electrolyte derangementhyponatremia, hypochloremia due to volume deple tion Hyperglycemia BOB due to ATN, requiring dialysis Erythrocytosis Candiduria Sacral decubitus ulcer S/P Trach on (03/17/21) Trach cultures positive for [place] albicans and now acinebacter ursungi History of Present Illness History of Present Illness 04/24: Afebrile. Had decannulation today, per Dr. Perkins Currently breathing on 8 L nasal cannula. Per GI, if vomiting recurs will consider GES. 04/23: Slightly tachycardic this morning, on trach collar with 8 L. Still with some nausea and vomiting. Reconsult GI with some concerns of possible gastroparesis. Continue to monitor off antibiotics and monitor kidney function. 04/22: No acute events overnight, resting comfortably in bed. Creatinine 2.0 today, EGFR 26.9. She is self-pay and med assist following and waiting spouse to provide information to complete necessary applications. Continue to monitor kidney function and monitor off antibiotics. 04/21: Afebrile, resting comfortably in bed. Kidney function remained stable, creatinine 1.8, eGFR 30.4. I believe plans per nephrology are to remove HD line today. We will continue to monitor off antibiotics. shipping services sales representative working with to help with emergency Medicare. 04/20: Afebrile, breathing on 10 L trach shield. Had some itching today; ordered as needed Benadryl. Kidney function improved and appears to be stable. Per nephrology, possible HD line removal tomorrow. Per ID, will monitor off antibiotics. 04/19 Patient evaluated and examined at bedside. Sugars pretty high today will need more insulin adjustments. On trach collar when I saw her. Continue diet as tolerated. Discussed with at bedside. Diet as tolerated. Working towards discharge. Continue antibiotics. Will ask renal if temporary HD catheter is still needed if not can remove. 04/18 Patient evaluated examined at bedside. She was on trach collar. Continue r egular diet as tolerated. Monitoring blood pressure. Working towards discharge. 04/17 Patient evaluated and examined at bedside. She is pretty alert today. Underwent video swallow study earlier and cleared for regular diet with thin liquids. Definite improvement for her. On trach collar when I saw her. Continue current treatments. Watch blood pressure. If she well keep up a consistent amount of p.o. intake may be able to stop tube feeds and PEG tube removal. But this is far down the line. 04/16 Patient seen examined at bedside. Transfer out of the ICU yesterday. Speech therapy to evaluate this morning. Improved notably since I last saw her in the ICU. Continue PEG feeds. Blood pressure treatment. Plan of care discussed with bedside RN. 04/15/2021 Patient seen and examined in the ICU She has clean dry intact tracheostomy with trach shield PEG feeds running at 30 cc an hour She really wants to drink water I told her that we are awaiting speech therapy to reevaluate her Chart reviewed Discussed with RN 04/14/2021 Patient seen and examined in the ICU She remains pleasantly confused Has a new PEG in place Discussed with physical therapy Discussed with RN Chart reviewed 04/13/2021 Patient seen and examined in the ICU She is pleasantly confused Sedated with Precedex and fentanyl I discussed with the speech therapist the patient has no laryngeal movement Now she is n.p.o. again Going for new PEG placement in interventional radiology hopefully later today Her trach is clean Chart reviewed Discussed with RN 04/12/2021 Patient seen and examined in the ICU Her is present today and seems to be good support for her Chart reviewed Discussed with RN Still sedated with Precedex and fentanyl but awake 04/11/2021 Patient seen and examined in the ICU She remains quite confused currently sedated Chart reviewed Discussed with RN Had some nausea vomiting last night Pulled out her PEG yesterday Currently on fentanyl and Precedex IV Zyvox hanging 04/10/2021 Patient seen and examined in the ICU She is pleasantly confused Has a trach shield in place Discussed with RN Chart reviewed We are adding in some as needed Ativan and scheduled Prozac Ms Borges is a 46 year old female who presented with nausea/vomiting since 7 AM 02/06/2021 in the morning. Patient stated that her recently tested positive for Covid. She states that he "coughed in my face because he thought it was funny." She reports subjective fevers and chills and nausea/vomiting. Denies sore throat, cough, shortness of breath. No chest pain. Does have some upper abdominal discomfort after vomiting, that she attributes to muscular strain. She was not vaccinated for Covid. 02/08: No acute events overnight. Patient seen and examined bedside and resting comfortably. Continues to complain of nausea not able to tolerate any diet at this time. Saturating 98% on room air. Patient's chart, labs, images were reviewed and discussed with RN 02/09: Afebrile, currently breathing on room air. Still with complaints of nausea and vomiting x3 today. States that she has history of similar symptoms that have been mildly improved with IV Dilaudid. 02/10: Patient febrile today with T-max 102.2 F. She still admits to nausea, denies any further vomiting. We will continue to provide supportive care and monitor for any recurrent fevers overnight. Patient continues to improve may discharge tomorrow to continue self-isolation. 02/11: Febrile overnight, T-max 102.3 F. She did become hypoxic overnight, currently breathing on 4 L nasal cannula. Also admits to associated vomiting or diarrhea overnight. Discussed with RN, will initiate remdesivir and closely monitor LFTs. IV Decadron, and prophylactic antibiotics. 02/12: Low-grade fever overnight, T-max 99.7. Currently breathing on room air. Will discontinue remdesivir, steroids, and antibiotics; will observe overnight. Still with complaints of vomiting x1 and diarrhea. We will continue to provide supportive care and hope to discharge in the next day or so. 02/13: Afebrile. Still complains of intermittent diarrhea. At the time of my evaluation she was breathing on 6 L nasal cannula; this is somewhat misleading as patient states that she did not feel short of breath but was placed on 6 L by nursing staff overnight. 02/14: Afebrile, currently breathing on 8 L nasal cannula. There has been some misleading documentation, chart oxygen this patient is requiring. Discussed with RN, will resume remdesivir to complete total of 5 days. Continue to monitor LFTs. Will add steroids, Rocephin, and azithromycin. 02/15: Afebrile. Became much more hypoxic overnight, requiring BiPAP. At the time of my evaluation she is still breathing on BiPAP. Consultation was placed to pulmonology. Had discussion with Dr. Myrick about initiating Tocilizumab 02/16: No acute events overnight. Patient becoming more hypoxic saturating 94% and requiring BiPAP. Patient will be transferred to the ICU at this time. For worsening clinical status. Discussed with pulmonary. Patient's chart, labs, images were reviewed and discussed with RN 02/17: Transferred to ICU yesterday afternoon. Seen and examined at bedside she remains on 100% FiO2 on BiPAP. Respirations do appear somewhat labored. Suspect intubation may be impending. We will closely monitor. Increase lisinopril to 20 today. 02/18: Patient required intubation yesterday afternoon. Saw and examined this morning. She is intubated and sedated. Increase insulin today. Covid protocol ordered. Wean as tolerated. Plan of care discussed with bedside nurse. 02/19: Bedside. She remains intubated and sedated. Continue Covid protocol. Wean oxygen sedation as tolerated. Pulmonary following. Plan of care discussed with bedside RN. 02/20: Patient seen and examined at bedside. She remains intubated and sedated. No major clinical changes. Continue current treatment. Pulmonary following. Plan of care discussed with bedside RN. 02/21: Patient seen and examined at bedside. Remains intubated and sedated date and admission clinical changes. Increase free water flushes today due to hypernatremia. Plan of care discussed with bedside nurse. 02/22: Patient seen and examined at bedside. O2 requirement actually improving, although remains intubated. Possible SBT in the coming days. Hypernatremia improving. Plan of care discussed bedside RN. 02/23: Patient remains in ICU on ventilator with FiO2 100%, PEEP 7. Repeat chest x-ray yesterday showed diffuse bilateral pulmonary opacities with no interval improvement. Will discontinue Rocephin and initiate Zosyn. We will continue IV steroids for a full 10-day course 02/24: Afebrile. On vent with FiO2 40%, PEEP 6. Her Coreg has been held due to persistent bradycardia. No documented history of systolic heart failure or previous echocardiogram. Will need to obtain echocardiogram prior to discharge. Continue IV steroids and antibiotics. 02/25: Afebrile. Remains ventilated with FiO2 45%, PEEP 6. Chest x-ray today showed slight improvement of the pulmonary infiltrates, no pneumothorax. Completed 10-day course of IV Decadron. Will initiate slow Solu-Medrol taper. Continue IV Zosyn. Continue supportive care. 02/26: Afebrile. On vent with FiO2 45%, PEEP 6. Completed 10 days of IV Decadron. Will continue IV Zosyn. Continue supportive care. Critical care time 30 minutes spent reviewing charts, reviewing imaging, reviewing labs, discussion with RN. 02/27: Afebrile. On vent with FiO2 45%, PEEP 6. Completed 10 days of steroids and completed remdesivir. Continue with IV Zosyn. CPAP trial yesterday. Continue NG tube and supportive care. 02/28:. Patient remains on vent with FiO2 40%, PEEP 5. Afebrile. Completed steroids and remdesivir. Some noted hypoglycemia overnight, will de-escalate basal insulin. Continue IV Zosyn. Ventilator management per pulmonology. Continue NG tube and supportive care. 03/01: On vent with FiO2 40%, PEEP 5. Afebrile. Completed steroids and remdesivir. Blood glucose well controlled. Continue empiric antibiotics with Zosyn. Ventilator management per pulmonology. Continue NG tube and supportive care. 03/02: No acute events overnight. Patient hypotensive the morning due to oversedation. Will wean off sedation and keep antihypertensive medications on board. Currently saturating 100% on vent settings of 18/450/40/5. Will attempt spontaneous breathing trial today to see how patient does. 03/03: No acute events overnight. Patient saturating 98% on vent settings of 18/450/40/5. Will defer spontaneous breathing trials to pulmonary at this time. Patient's chart, labs, images were reviewed and discussed with RN 8/: No acute events overnight. Patient saturating 9 9% on vent settings of 18/450/30/5. Patient currently is unable to tolerate weaning. Per pulmonary. Patient's chart, labs, images were reviewed and discussed with RN 8/: No acute events overnight. Patient is saturating 97% on vent settings of 18/450/55/5. Her FiO2 needs to be increased due to abnormal ABG with 7.3 //24. Patient's chart, labs, images were reviewed and discussed with RN 8/: No acute events overnight. Patient saturating 94% on vent settings of 18/450/55/5. Chest x-ray showing increase in pulmonary infiltrates. Wound care is consulted for decubitus ulcer patient's chart, labs, images were reviewed and discussed with RN 8/28: No acute events overnight. Patient saturating 94% on vent settings of 20/450/70/8. Patient now heading into renal failure with her creatinine bumped up from 1.5-4.2. Decreased urine output. Plan for hemodialysis today and temporary catheter placement and nephrology is consulted. 03/08: No acute events overnight. Patient did have a nausea vomiting episode and tube feeds were held. KUB repeat shows NG tube still in the stomach. Will resume tube feeds at trickle and advance to goal today. Will start hemodialysis soon. 03/09: Seen on vent 20/450/60%/8. ABG 7.2 WBC 11.4, Hb 7.4, platelets 188 , NA 131, K4.9, BUN 48, CR 51, glucose 199, phosphorus 7.9, mag 2.2, AST 265 ALT 219, albumin 1.1. Chest radiograph appears unchanged from prior. Dialysis x1 today 03/10: Afebrile. Seen on vent, 20/450/60/7 with ABG 7.3 . Tolerated dialysis well on 03/09. LFTs similar. 03/11: Afebrile. Seen on vent, sedated. Still requiring Levophed for BP support. WBC 16.7, Hb 8.1, NA 130, ABG 7.3 on 55% FiO2 PEEP 6. On Zosyn and Zyvox Diflucan. Dialysis today 03/12: Afebrile. Still requiring Levophed for BP support sedated with Versed febrile Precedex. WBC 16.1, Hb 8.5, platelets 185, NA 133. Trach plan tentatively 03/17. O2 saturations 93% on 50% FiO2 PEEP 6. ABG 7. On Zosyn and Zyvox Diflucan. 03/13: Afebrile. Still on Levophed for BP support lightly sedated. on 45% FiO2. Plan for dialysis today. On Zosyn and Zyvox Diflucan. More swollen today. 03/14: Afebrile. Weaning down off Levophed. WBC 14.9 NA 132. O2 saturations 92% on 45% FiO2 PEEP 5. Afebrile. O2 saturations 91% on FiO2 45% PEEP 6. Continued on Zosyn and Zyvox Diflucan. Tentative trach planned 03/17/2021 CC time 31 minutes 03/16/21: Patient seen and examined in ICU. Periorbital as well as upper and lower extremity edema noted. OG feed running at 30cc/hr. Still on vent on pressure control with a rate of 24 with 45% FiO2. Patient has rectal bag. Currently she has 98% O2 sat. Currently sedated with Dexmedetomidine, Propofol, Versed, and Fentanyl. Discussed with RN. Chart reviewed. 03/17/21: Patient was seen and examined in the ICU today. Periorbital edema as well as abdominal and mons pubis edema was noted. Patient still on vent on pressure control with Fi02 of 45% plus 6 PEEP. Patient had rectal bag. Currently sedated on Dexmedetomidine, Propofol, Versed, and Fentanyl. Discussed with RN. Chart reviewed. 03/18/21: Patient seen and examined in ICU. On vent via trach that was placed yesterday. Vent settings are Pressure Control of 40 with FiO2 of 45% and 6 PEEP. Trach clean and dry. Orbital swelling still present. Pupils are sluggish. Patient on TPN running at 30cc/hr. Kern to bedside and rectal bag in place. Current O2 sat at 94%. Sedated on Dexmedetomidine, Propofol, Versed, and Fentanyl. Discussed with RN. Chart reviewed. 03/19/21: Patient was seen and examined in the ICU today. Currently on vent via trach on pressure control of 42, rate of 24, FiO2 of 45%, and 6 PEEP. O2 sat is at 97% while patient is being examined. Trach is clean and dry. PICC line is in place on right arm. Periorbital swelling has decreased slightly since examined yesterday. Patient is sedated on Dexmedetomidine, Propofol, Versed, and Fentanyl. Discussed with RN. Chart reviewed. 03/20/21: Patient seen and examined in the ICU. Periorbital edema is slightly decreased since yesterday. O2 sat while being examined was 93%. NG tube in place and running at 30cc/hr. Patient on vent via trach on pressure control of 40 with FiO2 of 45 and rate of 24. Sedated on Dexmedetomidine, Propofol, Versed, and Fentanyl. PICC line in place. Kern to bedside. Rectal bag present. Discussed with RN. Chart reviewed. 03/21/21: Patient was seen and examined in the ICU today. She was semi-sedated.. She was on Dexmedetomidine and Fentanyl. We are holding the Propofol. Her eyes were periodically open but she was not making meaningful eye contact or tracking. On vent via trach with pressure control of 40 and FiO2 at 45. Rate was 24. PEEP was 5. Trach was clean and dry. While being examined, her O2 sat was 94%. Rectal bag and Kern to bedside in place. NG tube in place and feeding at 3 0cc/hr. IV fluids still running. Levophed has been stopped. Discussed with RN. Chart reviewed. 03/22/21: Patient was seen and examined in the ICU. She was semi-sedated on Propofol and Dexmedetomidine. Her eyes were open but she did not make meaningful eye contact. Her blood pressure was elevated (198/102) while being examined and she had just been given hydralazine to lower it. There are plans to place a PEG tube tomorrow. Currently on vent via trach on pressure control of 40 with FiO2 of 45%, 5 PEEP, and a rate of 24. Current O2 sat is 98%. She is feeding through an NG tube at 30cc/hr. Rectal bag and Kern to bedside present. SCDs on patient for DVT prophylaxis. She did not do her daily dialysis today but the plan is to start back on that tomorrow. Discussed with RN. Chart reviewed. 03/23/2021: Patient remains in ICU on ventilator. FiO2 40%, PEEP 5. Trach cultures positive for [place] albicans and acinebacter ursungi. We will continue treatment with IV antibiotics and micafungin, per ID. HD per nephrology. Plans for PEG tube placement today. 30 minutes critical care time was spent reviewing charts, reviewing labs, reviewing imaging, discussion with RN. 03/24/2021: Afebrile. On vent with FiO2 45%, PEEP 5. Had attempted PEG placement per GI yesterday, but unable to locate safe path for PEG; will consider surgical opinion. Once PEG is in place she should be stable for LTAC transfer when accepted. Continue antibiotics, per ID. 30 minutes critical care time was spent reviewing charts, reviewing labs, reviewing imaging, discussion with RN. 03/25/2021: Febrile overnight with T-max 101.5 F. On vent with FiO2 45%, PEEP 5. Surgery has been consulted with tentative plans for laparoscopic versus open gastrostomy placement tomorrow. Trach cultures positive for [place] albicans and now acinebacter ursungi; will continue antibiotic management, per ID. Hemodialysis, per nephrology. Patient needing LTAC placement, but currently without benefits. cellophane worker following for discharge planning. Critical care time 30 minutes spent reviewing charts, reviewing labs, reviewing imaging, discussion with RN. 03/26/2021: Febrile today with T-max 100.5 F. Awake on vent with FiO2 45%, PEEP 5. When I ask if she remembers any she nods. G-tube placement scheduled for tomorrow, per general surgery. Chest x-ray today showed slight interval increase in diffuse infiltrate. Continue antibiotic management, per ID. Hemodialysis per nephrology. Reportedly did not tolerate CPAP trial this morning. cellophane worker following for LTAC placement. Critical care time 30 minutes spent reviewing charts, reviewing labs, reviewing imaging, discussion with RN. 03/27/2021: On vent with FiO2 45%, PEEP 5. Afebrile today. Continue treatment of acute renal failure requiring HD, per nephrology. Monitor kidney function for recovery. G-tube placement scheduled for today, per general surgery. Likely LTAC placement soon, but this is been a difficult as she is self-pay without benefits; social service director following. Critical care time 30 minutes spent reviewing charts, reviewing labs, reviewing imaging, discussion with RN. 03/28/2021: Afebrile. On vent with FiO2 40%, PEEP 5. Had laparoscopic gastrostomy tube placed yesterday, per general surgery. Continue treatment of acute renal failure requiring HD, per nephrology. Continue IV antibiotics, per ID. Likely LTAC placement soon, but this is been a difficult as she is self-pay without benefits; social service director following. Critical care time 30 minutes spent reviewing charts, reviewing labs, reviewing imaging, discussion with RN. 03/29/2021: Afebrile. On vent with FiO2 45%, PEEP 5. S/P laparoscopic gastr ostomy tube; tube feeds running. HD, per nephrology. Continue meropenem, per ID. Anticipate LTAC placement soon now that PEG has being placed; social service director helping in these regards. Critical care time 30 minutes spent reviewing charts, reviewing labs, reviewing imaging, discussion with RN. 03/30 No major events or clinical changes overnight. Patient evaluated at bedside this morning on trach and G-tube. Tolerating these well. Has been working on insurance for patient for placement as she will need long-term care. Guarded prognosis. Plan of care discussed with bedside nurse. 03/31 No major clinical changes. Remains trached. Sedated. Continue current plan. 04/01 No changes. Patient resting in bed when evaluated sedated. is supposed to be working on insurance for placement for the patient. Otherwise no changes. 04/02 Patient febrile overnight, daptomycin added this morning per infectious disease. Otherwise no major clinical changes. Awaiting insurance. Infectious disease, pulmonary and renal following. Plan of care discussed with bedside RN. 04/03 Patient undergoing dialysis today. Evaluated at bedside this morning. otherwise continue current plan. supposed working on insurance. 04/04 No major overnight changes. Continue current plan. 04/05 Patient notably more movement this morning eyes open resting in bed otherwise no major changes. Continue current plan. Insurance pending. 04/06 Patient notably more movement this morning eyes open resting in bed current plan. Insurance pending. Continue daptomycin, renal dosing April 02 F/U Blood culture UA urine culture C. diff PCR negative 32 min cc time 04/07 Patient notably more movement this morning eyes open resting in bed current plan. Insurance pending. Continue daptomycin, renal dosing April 02 F/U Blood culture UA urine culture C. diff PCR negative Abnormal chest x-ray consistent with COVID-19 viral pneumonia. Diabetic ketoacidosis--resolved obesity contributing to hypoxia as well. BOB . hemodialysis started 03/07 DVT GI prophylaxis Nutritional support 34 min cc time 04/08 Patient notably more movement this morning eyes open resting in bed current plan. Insurance pending. Continue daptomycin, renal dosing April 02 F/U Blood culture UA urine culture C. diff PCR negative s/p lap G-tube 03/27 Abnormal chest x-ray consistent with COVID-19 viral pneumonia. Diabetic ketoacidosis--resolved obesity contributing to hypoxia as well. BOB . hemodialysis started 03/07 DVT GI prophylaxis Nutritional support Right PICC line February 14 out; left PICC line 04/07/2021 Right IJ HDC clean March 07 32 min cc time 04/09 non Oliguric for past 11/2 -2 weeks , good response to IV NS bolus .requiring dialysis., currently on MWF schedule, tolerating trach shield well.using her speaking valve./ resting in bed current / states she feels better Start iv Zyvox Cont Meropenem DC daptomycin post PICC line exchange aspiration precautions C. diff PCR negative F/U Blood culture UA urine culture s/p lap G-tube 03/27 Abnormal chest x-ray consistent with COVID-19 viral pneumonia. Diabetic ketoacidosis--resolved obesity contributing to hypoxia as well. BOB . hemodialysis started 03/07 DVT GI prophylaxis Nutritional support Right PICC line February 14 out; left PICC line 04/07/2021 Right IJ HDC clean March 07 34 min cc time Vitals/I&O Vitals/I&O: Vital Signs Date Time Temp Pulse Resp B/P (MAP) Pulse Ox O2 Delivery O2 Flow Rate FiO2 04/24/21 11:00 98.6 119 16 163/95 (117) 100 trech shield 8.0 98.6 I & O 04/23/21 04/23/21 04/24/21 15:00 23:00 07:00 Intake Total 118 ml 800 ml 400 ml Output Total 950 ml 900 ml 2000 ml Balance -832 ml -100 ml -1600 ml Physical Exam Physical Exam: GENERAL: No acute distress HEENT: Normocephalic, atraumatic. Anicteric. Neck right IJ HDC clean Trach + capped LUNGS: Decreased breath sounds otherwise clear HEART: S1, S2. No murmurs. ABDOMEN: Obese, soft. Bowel sounds present. Nontender, nondistended. PEG tube pulled out by patient EXTREMITIES: Edema present no cyanosis. CENTRAL NERVOUS SYSTEM: Intubated. PSYCHIATRIC: Confused Derm has pressure wounds wound pictures noted in chart. Generalized rash, Right PICC line removed; left PICC line 04/07/2021 Right IJ HDC clean March 07 General: Cooperative, No acute distress Heart: Regular rate, Normal S1, Normal S2 Lungs: Crackles Abdomen: Soft, Other (ND) Extremities: No cyanosis, Other (ANASARCA) Skin: No rashes, No significant lesion Labs Labs: Laboratory Tests Test 04/23/21 16:07 04/23/21 20:32 04/24/21 05:30 04/24/21 07:24 Glucose (Fingerstick) 207 mg/dL (70-99) 360 mg/dL (70-99) 283 mg/dL (70-99) White Blood Count 12.2 x10^3/uL (4.0-11.0) Red Blood Count 3.03 x10^6/uL (3.50-5.40) Hemoglobin 8.6 g/dL (12.0-15.5) Hematocrit 25.8 % (36.0-47.0) Mean Corpuscular Volume 85 fL (79-100) Mean Corpuscular Hemoglobin 28 pg (25-35) Mean Corpuscular Hemoglobin Concent 33 g/dL (31-37) Red Cell Distribution Width 14.5 % (11.5-14.5) Platelet Count 271 x10^3/uL (140-400) Neutrophils (%) (Auto) 64 % (31-73) Lymphocytes (%) (Auto) 21 % (24-48) Monocytes (%) (Auto) 11 % (0-9) Eosinophils (%) (Auto) 4 % (0-3) Basophils (%) (Auto) 1 % (0-3) Neutrophils # (Auto) 7.7 x10^3/uL (1.8-7.7) Lymphocytes # (Auto) 2.6 x10^3/uL (1.0-4.8) Monocytes # (Auto) 1.3 x10^3/uL (0.0-1.1) Eosinophils # (Auto) 0.4 x10^3/uL (0.0-0.7) Basophils # (Auto) 0.1 x10^3/uL (0.0-0.2) Sodium Level 131 mmol/L (136-145) Potassium Level 4.3 mmol/L (3.5-5.1) Chloride Level 95 mmol/L (98-107) Carbon Dioxide Level 29 mmol/L (21-32) Anion Gap 7 (6-14) Blood Urea Nitrogen 30 mg/dL (7-20) Creatinine 2.1 mg/dL (0.6-1.0) Estimated GFR (Cockcroft-Gault) 25.5 Glucose Level 258 mg/dL (70-99) Calcium Level 9.4 mg/dL (8.5-10.1) Test 04/24/21 11:08 Glucose (Fingerstick) 293 mg/dL (70-99) Assessment and Plan Assessmemt and Plan Problems Medical Problems: (1) Ketoacidosis Status: Acute Comment Review of Relevant I have reviewed the following items mazin (where applicable) has been applied. Medications: Current Medications Medications (Trade) Dose Ordered Sig/Pepe Route PRN Reason Start Time Stop Time Status Last Admin Dose Admin Insulin Human Lispro (HumaLOG) 10 units 1X ONCE SQ 04/23/21 23:15 04/23/21 23:16 DC 04/23/21 23:13 Justifications for Admission Other Justification SANDI ALCARAZ MD Apr 24, 2021 13:19
[2021-04-24 15:00] VITALS: BP 114/56
--- NOTE | 2021-04-24 16:35 | NUR ---
Around 1150 Dr Perkins removed the patients trach at bedside. No complications noted from procedure and patient is currently on 2L NC with 100% oxygen. Stoma site covered with 4x4's and tape. Patient education completed on covering stoma when speaking and skin care. Will continue to monitor.
[2021-04-24] MEDS: diphenhydrAMINE ORAL ELIXIR 12.5 MG/5 ML ML PEG PRN ×2 (18:09→22:13)
[2021-04-24 19:56] VITALS: BP 129/76
[2021-04-24] MEDS ORDERED: INSULIN LISPRO 300 UNITS/3 ML VIAL. SQ ONE ×2 (21:15→21:30)
[2021-04-24] MEDS: ACETAMINOPHEN 650 MG/20.3 ML SOLUTION. PEG PRN (22:13)
[2021-04-24] MEDS: ATORVASTATIN CALCIUM 40 MG TABLET. PO SCH (22:13)
[2021-04-24 23:32] VITALS: BP 98/52
[2021-04-25 03:13] VITALS: BP 128/64
[2021-04-25] MEDS: HEPARIN for SUB-Q USE 5,000 UNIT/ML VIAL. SQ SCH ×3 (05:41→21:44)
[2021-04-25 06:09] LABS: BASO # 0.1 x10^3/uL (0.0-0.2); BASO % 1 % (0-3); EOS # 0.5 x10^3/uL (0.0-0.7); EOS % 3 % (0-3); HEMATOCRIT 25.2 % (36.0-47.0); HEMOGLOBIN 8.4 g/dL (12.0-15.5); LYMPH # 2.5 x10^3/uL (1.0-4.8); LYMPH % 18 % (24-48); MEAN CORPUSCULAR HEMOGLOBIN 28 pg (25-35); MEAN CORPUSCULAR HGB CONC 34 g/dL (31-37); MEAN CORPUSCULAR VOLUME 85 fL (79-100); MONO # 1.4 x10^3/uL (0.0-1.1); MONO % 10 % (0-9); NEUT # 9.1 x10^3/uL (1.8-7.7); NEUT % 67 % (31-73); PLATELET COUNT 258 x10^3/uL (140-400); RED BLOOD COUNT 2.96 x10^6/uL (3.50-5.40); RED CELL DISTRIBUTION WIDTH 14.4 % (11.5-14.5); WHITE BLOOD COUNT 13.6 x10^3/uL (4.0-11.0)
[2021-04-25 06:10] LABS: CALCIUM 9.3 mg/dL (8.5-10.1); CREATININE 1.9 mg/dL (0.6-1.0); GFR 28.6; POTASSIUM 4.1 mmol/L (3.5-5.1)
[2021-04-25 07:00] VITALS: BP 193/63
[2021-04-25] MEDS: INSULIN LISPRO 300 UNITS/3 ML VIAL. SQ SCH ×4 (07:30→21:47)
[2021-04-25] MEDS: IPRATRPIUM/ALBUTEROL 0.5/2.5MG 3 ML NEBU. NEB SCH ×2 (07:48→11:24)
[2021-04-25] MEDS: NYSTATIN TOPICAL POWDER 15GM BOTTLE. TP SCH ×2 (09:00→21:56)
--- NOTE | 2021-04-25 09:13 | PDOC ---
[employer] PROGRESS NOTE Date of Service DOS: DATE: 04/25/21 TIME: 09:11 Chief Complaint Chief Complaint COVID-19 acute hypoxic respiratory failure DKA Hypotension Nausea Vomiting Combined metabolic and respiratory acidosis Acute electrolyte derangementhyponatremia, hypochloremia due to volume deple tion Hyperglycemia BOB due to ATN, requiring dialysis Erythrocytosis Candiduria Sacral decubitus ulcer S/P Trach on (03/17/21) Trach cultures positive for [place] albicans and now acinebacter ursungi History of Present Illness History of Present Illness 04/25: Afebrile, breathing on 2 L nasal cannula. Tachycardic. Decannulation yesterday. provided some documentation yesterday to help with Medicaid/disability applications. dietary services manager following. 04/24: Afebrile. Had decannulation today, per Dr. Perkins Currently breathing on 8 L nasal cannula. Per GI, if vomiting recurs will consider GES. 04/23: Slightly tachycardic this morning, on trach collar with 8 L. Still with some nausea and vomiting. Reconsult GI with some concerns of possible gastroparesis. Continue to monitor off antibiotics and monitor kidney function. 04/22: No acute events overnight, resting comfortably in bed. Creatinine 2.0 today, EGFR 26.9. She is self-pay and med assist following and waiting spouse to provide information to complete necessary applications. Continue to monitor kidney function and monitor off antibiotics. 04/21: Afebrile, resting comfortably in bed. Kidney function remained stable, creatinine 1.8, eGFR 30.4. I believe plans per nephrology are to remove HD line today. We will continue to monitor off antibiotics. dietary services manager working with to help with emergency Medicare. 04/20: Afebrile, breathing on 10 L trach shield. Had some itching today; ordered as needed Benadryl. Kidney function improved and appears to be stable. Per nephrology, possible HD line removal tomorrow. Per ID, will monitor off antibiotics. 04/19 Patient evaluated and examined at bedside. Sugars pretty high today will need more insulin adjustments. On trach collar when I saw her. Continue diet as tolerated. Discussed with at bedside. Diet as tolerated. Working towards discharge. Continue antibiotics. Will ask renal if temporary HD catheter is still needed if not can remove. 04/18 Patient evaluated examined at bedside. She was on trach collar. Continue regular diet as tolerated. Monitoring blood pressure. Working towards discharge. 04/17 Patient evaluated and examined at bedside. She is pretty alert today. Underwent video swallow study earlier and cleared for regular diet with thin liquids. Definite improvement for her. On trach collar when I saw her. Continue current treatments. Watch blood pressure. If she well keep up a consistent amount of p.o. intake may be able to stop tube feeds and PEG tube removal. But this is far down the line. 04/16 Patient seen examined at bedside. Transfer out of the ICU yesterday. Speech therapy to evaluate this morning. Improved notably since I last saw her in the ICU. Continue PEG feeds. Blood pressure treatment. Plan of care discussed with bedside RN. 04/15/2021 Patient seen and examined in the ICU She has clean dry intact tracheostomy with trach shield PEG feeds running at 30 cc an hour She really wants to drink water I told her that we are awaiting speech therapy to reevaluate her Chart reviewed Discussed with RN 04/14/2021 Patient seen and examined in the ICU She remains pleasantly confused Has a new PEG in place Discussed with physical therapy Discussed with RN Chart reviewed 04/13/2021 Patient seen and examined in the ICU She is pleasantly confused Sedated with Precedex and fentanyl I discussed with the speech therapist the patient has no laryngeal movement Now she is n.p.o. again Going for new PEG placement in interventional radiology hopefully later today Her trach is clean Chart reviewed Discussed with RN 04/12/2021 Patient seen and examined in the ICU Her is present today and seems to be good support for her Chart reviewed Discussed with RN Still sedated with Precedex and fentanyl but awake 04/11/2021 Patient seen and examined in the ICU She remains quite confused currently sedated Chart reviewed Discussed with RN Had some nausea vomiting last night Pulled out her PEG yesterday Currently on fentanyl and Precedex IV Zyvox hanging 04/10/2021 Patient seen and examined in the ICU She is pleasantly confused Has a trach shield in place Discussed with RN Chart reviewed We are adding in some as needed Ativan and scheduled Prozac Ms Borges is a 46 year old female who presented with nausea/vomiting since 7 AM 02/06/2021 in the morning. Patient stated that her recently tested positive for Covid. She states that he "coughed in my face because he thought it was funny." She reports subjective fevers and chills and nausea/vomiting. Denies sore throat, cough, shortness of breath. No chest pain. Does have some upper abdominal discomfort after vomiting, that she attributes to muscular strain. She was not vaccinated for Covid. 02/08: No acute events overnight. Patient seen and examined bedside and resting comfortably. Continues to complain of nausea not able to tolerate any diet at t his time. Saturating 98% on room air. Patient's chart, labs, images were reviewed and discussed with RN 02/09: Afebrile, currently breathing on room air. Still with complaints of nausea and vomiting x3 today. States that she has history of similar symptoms that have been mildly improved with IV Dilaudid. 02/10: Patient febrile today with T-max 102.2 F. She still admits to nausea, denies any further vomiting. We will continue to provide supportive care and monitor for any recurrent fevers overnight. Patient continues to improve may discharge tomorrow to continue self-isolation. 02/11: Febrile overnight, T-max 102.3 F. She did become hypoxic overnight, currently breathing on 4 L nasal cannula. Also admits to associated vomiting or diarrhea overnight. Discussed with RN, will initiate remdesivir and closely monitor LFTs. IV Decadron, and prophylactic antibiotics. 02/12: Low-grade fever overnight, T-max 99.7. Currently breathing on room air. Will discontinue remdesivir, steroids, and antibiotics; will observe overnight. Still with complaints of vomiting x1 and diarrhea. We will continue to provide supportive care and hope to discharge in the next day or so. 02/13: Afebrile. Still complains of intermittent diarrhea. At the time of my evaluation she was breathing on 6 L nasal cannula; this is somewhat misleading as patient states that she did not feel short of breath but was placed on 6 L by nursing staff overnight. 02/14: Afebrile, currently breathing on 8 L nasal cannula. There has been some misleading documentation, chart oxygen this patient is requiring. Discussed with RN, will resume remdesivir to complete total of 5 days. Continue to monitor LFTs. Will add steroids, Rocephin, and azithromycin. 02/15: Afebrile. Became much more hypoxic overnight, requiring BiPAP. At the time of my evaluation she is still breathing on BiPAP. Consultation was placed to pulmonology. Had discussion with Dr. Myrick about initiating Tocilizumab 02/16: No acute events overnight. Patient becoming more hypoxic saturating 94% and requiring BiPAP. Patient will be transferred to the ICU at this time. For worsening clinical status. Discussed with pulmonary. Patient's chart, labs, images were reviewed and discussed with RN 02/17: Transferred to ICU yesterday afternoon. Seen and examined at bedside she remains on 100% FiO2 on BiPAP. Respirations do appear somewhat labored. Suspect intubation may be impending. We will closely monitor. Increase lisinopril to 20 today. 02/18: Patient required intubation yesterday afternoon. Saw and examined this morning. She is intubated and sedated. Increase insulin today. Covid protocol ordered. Wean as tolerated. Plan of care discussed with bedside nurse. 02/19: Bedside. She remains intubated and sedated. Continue Covid protocol. Wean oxygen sedation as tolerated. Pulmonary following. Plan of care discussed with bedside RN. 02/20: Patient seen and examined at bedside. She remains intubated and sedated. No major clinical changes. Continue current treatment. Pulmonary following. Plan of care discussed with bedside RN. 02/21: Patient seen and examined at bedside. Remains intubated and sedated date and admission clinical changes. Increase free water flushes today due to hypernatremia. Plan of care discussed with bedside nurse. 02/22: Patient seen and examined at bedside. O2 requirement actually improving, although remains intubated. Possible SBT in the coming days. Hypernatremia improving. Plan of care discussed bedside RN. 02/23: Patient remains in ICU on ventilator with FiO2 100%, PEEP 7. Repeat chest x-ray yesterday showed diffuse bilateral pulmonary opacities with no interval improvement. Will discontinue Rocephin and initiate Zosyn. We will continue IV steroids for a full 10-day course 02/24: Afebrile. On vent with FiO2 40%, PEEP 6. Her Coreg has been held due to persistent bradycardia. No documented history of systolic heart failure or previous echocardiogram. Will need to obtain echocardiogram prior to discharge. Continue IV steroids and antibiotics. 02/25: Afebrile. Remains ventilated with FiO2 45%, PEEP 6. Chest x-ray today showed slight improvement of the pulmonary infiltrates, no pneumothorax. Completed 10-day course of IV Decadron. Will initiate slow Solu-Medrol taper. Continue IV Zosyn. Continue supportive care. 02/26: Afebrile. On vent with FiO2 45%, PEEP 6. Completed 10 days of IV Decadron. Will continue IV Zosyn. Continue supportive care. Critical care time 30 minutes spent reviewing charts, reviewing imaging, reviewing labs, discussion with RN. 02/27: Afebrile. On vent with FiO2 45%, PEEP 6. Completed 10 days of steroids and completed remdesivir. Continue with IV Zosyn. CPAP trial yesterday. C ontinue NG tube and supportive care. 02/28:. Patient remains on vent with FiO2 40%, PEEP 5. Afebrile. Completed steroids and remdesivir. Some noted hypoglycemia overnight, will de-escalate basal insulin. Continue IV Zosyn. Ventilator management per pulmonology. Continue NG tube and supportive care. 03/01: On vent with FiO2 40%, PEEP 5. Afebrile. Completed steroids and remdesi vir. Blood glucose well controlled. Continue empiric antibiotics with Zosyn. Ventilator management per pulmonology. Continue NG tube and supportive care. 03/02: No acute events overnight. Patient hypotensive the morning due to oversedation. Will wean off sedation and keep antihypertensive medications on board. Currently saturating 100% on vent settings of 18/450/40/5. Will attempt spontaneous breathing trial today to see how patient does. 03/03: No acute events overnight. Patient saturating 98% on vent settings of 18/450/40/5. Will defer spontaneous breathing trials to pulmonary at this time. Patient's chart, labs, images were reviewed and discussed with RN 03/04: No acute events overnight. Patient saturating 9 9% on vent settings of 18/450/30/5. Patient currently is unable to tolerate weaning. Per pulmonary. Patient's chart, labs, images were reviewed and discussed with RN 03/05: No acute events overnight. Patient is saturating 97% on vent settings of 18/450/55/5. Her FiO2 needs to be increased due to abnormal ABG with 7.3 7//24. Patient's chart, labs, images were reviewed and discussed with RN 03/06: No acute events overnight. Patient saturating 94% on vent settings of 18/450/55/5. Chest x-ray showing increase in pulmonary infiltrates. Wound care is consulted for decubitus ulcer patient's chart, labs, images were reviewed and discussed with RN 03/07: No acute events overnight. Patient saturating 94% on vent settings of 20/450/70/8. Patient now heading into renal failure with her creatinine bumped up from 1.5-4.2. Decreased urine output. Plan for hemodialysis today and temporary catheter placement and nephrology is consulted. 03/08: No acute events overnight. Patient did have a nausea vomiting episode and tube feeds were held. KUB repeat shows NG tube still in the stomach. Will resume tube feeds at trickle and advance to goal today. Will start hemodialysis soon. 03/09: Seen on vent 20/450/60%/8. ABG 7.2 WBC 11.4, Hb 7.4, platelets 188, NA 131, K4.9, BUN 48, CR 51, glucose 199, phosphorus 7.9, mag 2.2, AST 265 ALT 219, albumin 1.1. Chest radiograph appears unchanged from prior. Dialysis x1 today 03/10: Afebrile. Seen on vent, 20/450/60/7 with ABG 7.3 . Tolerated dialysis well on 03/09. LFTs similar. 03/11: Afebrile. Seen on vent, sedated. Still requiring Levophed for BP support. WBC 16.7, Hb 8.1, NA 130, ABG 7.3 on 55% FiO2 PEEP 6. On Zosyn and Zyvox Diflucan. Dialysis today 03/12: Afebrile. Still requiring Levophed for BP support sedated with Versed febrile Precedex. WBC 16.1, Hb 8.5, platelets 185, NA 133. Trach plan tentatively 03/17. O2 saturations 93% on 50% FiO2 PEEP 6. ABG 7. On Zosyn and Zyvox Diflucan. 03/13: Afebrile. Still on Levophed for BP support lightly sedated. 7. on 45% FiO2. Plan for dialysis today. On Zosyn and Zyvox Diflucan. More swollen today. 03/14: Afebrile. Weaning down off Levophed. WBC 14.9 NA 132. O2 saturations 92% on 45% FiO2 PEEP 5. Afebrile. O2 saturations 91% on FiO2 45% PEEP 6. Continued on Zosyn and Zyvox Diflucan. Tentative trach planned 03/17/2021 CC time 31 minutes 03/16/21: Patient seen and examined in ICU. Periorbital as well as upper and lower extremity edema noted. OG feed running at 30cc/hr. Still on vent on pressure control with a rate of 24 with 45% FiO2. Patient has rectal bag. Currently she has 98% O2 sat. Currently sedated with Dexmedetomidine, Propofol, Versed, and Fentanyl. Discussed with RN. Chart reviewed. 03/17/21: Patient was seen and examined in the ICU today. Periorbital edema as well as abdominal and mons pubis edema was noted. Patient still on vent on pressure control with Fi02 of 45% plus 6 PEEP. Patient had rectal bag. Currently sedated on Dexmedetomidine, Propofol, Versed, and Fentanyl. Discussed with RN. Chart reviewed. 03/18/21: Patient seen and examined in ICU. On vent via trach that was placed yesterday. Vent settings are Pressure Control of 40 with FiO2 of 45% and 6 PEEP. Trach clean and dry. Orbital swelling still present. Pupils are sluggish. Patient on TPN running at 30cc/hr. Kern to bedside and rectal bag in place. Current O2 sat at 94%. Sedated on Dexmedetomidine, Propofol, Versed, and Fentanyl. Discussed with RN. Chart reviewed. 03/19/21: Patient was seen and examined in the ICU today. Currently on vent via trach on pressure control of 42, rate of 24, FiO2 of 45%, and 6 PEEP. O2 sat is at 97% while patient is being examined. Trach is clean and dry. PICC line is in place on right arm. Periorbital swelling has decreased slightly since examined yesterday. Patient is sedated on Dexmedetomidine, Propofol, Versed, and Fentanyl. Discussed with RN. Chart reviewed. 03/20/21: Patient seen and examined in the ICU. Periorbital edema is slightly decreased since yesterday. O2 sat while being examined was 93%. NG tube in place and running at 30cc/hr. Patient on vent via trach on pressure control of 40 with FiO2 of 45 and rate of 24. Sedated on Dexmedetomidine, Propofol, Versed, and Fentanyl. PICC line in place. Kern to bedside. Rectal bag present. Discussed with RN. Chart reviewed. 03/21/21: Patient was seen and examined in the ICU today. She was semi-sedated.. She was on Dexmedetomidine and Fentanyl. We are holding the Propofol. Her eyes were periodically open but she was not making meaningful eye contact or tracking. On vent via trach with pressure control of 40 and FiO2 at 45. Rate was 24. PEEP was 5. Trach was clean and dry. While being examined, her O2 sat was 94%. Rectal bag and Kern to bedside in place. NG tube in place and feeding at 30cc/hr. IV fluids still running. Levophed has been stopped. Discussed with RN. Chart reviewed. 03/22/21: Patient was seen and examined in the ICU. She was semi-sedated on Propofol and Dexmedetomidine. Her eyes were open but she did not make meaningful eye contact. Her blood pressure was elevated (198/102) while being examined and she had just been given hydralazine to lower it. There are plans to place a PEG tube tomorrow. Currently on vent via trach on pressure control of 40 with FiO2 of 45%, 5 PEEP, and a rate of 24. Current O2 sat is 98%. She is feeding through an NG tube at 30cc/hr. Rectal bag and Kern to bedside present. SCDs on patient for DVT prophylaxis. She did not do her daily dialysis today but the plan is to start back on that tomorrow. Discussed with RN. Chart reviewed. 03/23/2021: Patient remains in ICU on ventilator. FiO2 40%, PEEP 5. Trach cultures positive for [place] albicans and acinebacter ursungi. We will continue treatment with IV antibiotics and micafungin, per ID. HD per nephrology. Plans for PEG tube placement today. 30 minutes critical care time was spent reviewing charts, reviewing labs, reviewing imaging, discussion with RN. 03/24/2021: Afebrile. On vent with FiO2 45%, PEEP 5. Had attempted PEG placement per GI yesterday, but unable to locate safe path for PEG; will consider surgical opinion. Once PEG is in place she should be stable for LTAC transfer when accepted. Continue antibiotics, per ID. 30 minutes critical care time was spent reviewing charts, reviewing labs, reviewing imaging, discussion with RN. 03/25/2021: Febrile overnight with T-max 101.5 F. On vent with FiO2 45%, PEEP 5. Surgery has been consulted with tentative plans for laparoscopic versus open gastrostomy placement tomorrow. Trach cultures positive for [place] albicans and now acinebacter ursungi; will continue antibiotic management, per ID. Hemodialysis, per nephrology. Patient needing LTAC placement, but currently without benefits. drop worker following for discharge planning. Critical care time 30 minutes spent reviewing charts, reviewing labs, reviewing imaging, discussion with RN. 03/26/2021: Febrile today with T-max 100.5 F. Awake on vent with FiO2 45%, PEEP 5. When I ask if she remembers any she nods. G-tube placement scheduled for tomorrow, per general surgery. Chest x-ray today showed slight interval increase in diffuse infiltrate. Continue antibiotic management, per ID. Hemodialysis per nephrology. Reportedly did not tolerate CPAP trial this morning. drop worker following for LTAC placement. Critical care time 30 minutes spent reviewing charts, reviewing labs, reviewing imaging, discussion with RN. 03/27/2021: On vent with FiO2 45%, PEEP 5. Afebrile today. Continue treatment of acute renal failure requiring HD, per nephrology. Monitor kidney function for recovery. G-tube placement scheduled for today, per general surgery. Likely LTAC placement soon, but this is been a difficult as she is self-pay without benefits; rn social work following. Critical care time 30 minutes spent reviewing charts, reviewing labs, reviewing imaging, discussion with RN. 03/28/2021: Afebrile. On vent with FiO2 40%, PEEP 5. Had laparoscopic gastrostomy tube placed yesterday, per general surgery. Continue treatment of acute renal failure requiring HD, per nephrology. Continue IV antibiotics, per ID. Likely LTAC placement soon, but this is been a difficult as she is self-pay without benefits; rn social work following. Critical care time 30 minutes spent reviewing charts, reviewing labs, reviewing imaging, discussion with RN. 03/29/2021: Afebrile. On vent with FiO2 45%, PEEP 5. S/P laparoscopic gastrostomy tube; tube feeds running. HD, per nephrology. Continue meropenem, per ID. Anticipate LTAC placement soon now that PEG has being placed; rn social work helping in these regards. Critical care time 30 minutes spent reviewing charts, reviewing labs, reviewing imaging, discussion with RN. 03/30 No major events or clinical changes overnight. Patient evaluated at bedside this morning on trach and G-tube. Tolerating these well. Has been working on insurance for patient for placement as she will need long-term care. Guarded prognosis. Plan of care discussed with bedside nurse. 03/31 No major clinical changes. Remains trached. Sedated. Continue current plan. 04/01 No changes. Patient resting in bed when evaluated sedated. is supposed to be working on insurance for placement for the patient. Otherwise no changes. 04/02 Patient febrile overnight, daptomycin added this morning per infectious disease. Otherwise no major clinical changes. Awaiting insurance. Infectious disease, pulmonary and renal following. Plan of care discussed with bedside RN. 04/03 Patient undergoing dialysis today. Evaluated at bedside this morning. otherwise continue current plan. supposed working on insurance. 04/04 No major overnight changes. Continue current plan. 04/05 Patient notably more movement this morning eyes open resting in bed otherwise no major changes. Continue current plan. Insurance pending. 04/06 Patient notably more movement this morning eyes open resting in bed current plan. Insurance pending. Continue daptomycin, renal dosing April 02 F/U Blood culture UA urine culture C. diff PCR negative 32 min cc time 04/07 Patient notably more movement this morning eyes open resting in bed current plan. Insurance pending. Continue daptomycin, renal dosing April 02 F/U Blood culture UA urine culture C. diff PCR negative Abnormal chest x-ray consistent with COVID-19 viral pneumonia. Diabetic ketoacidosis--resolved obesity contributing to hypoxia as well. BOB . hemodialysis started 03/07 DVT GI prophylaxis Nutritional support 34 min cc time 04/08 Patient notably more movement this morning eyes open resting in bed current plan. Insurance pending. Continue daptomycin, renal dosing April 02 F/U Blood culture UA urine culture C. diff PCR negative s/p lap G-tube 03/27 Abnormal chest x-ray consistent with COVID-19 viral pneumonia. Diabetic ketoacidosis--resolved obesity contributing to hypoxia as well. BOB . hemodialysis started 03/07 DVT GI prophylaxis Nutritional support Right PICC line February 14 out; left PICC line 04/07/2021 Right IJ HDC clean March 07 32 min cc time 04/09 non Oliguric for past 11/2 -2 weeks , good response to IV NS bolus .requiring dialysis., currently on MWF schedule, tolerating trach shield well.using her speaking valve./ resting in bed current / states she feels better Start iv Zyvox Cont Meropenem DC daptomycin post PICC line exchange aspiration precautions C. diff PCR negative F/U Blood culture UA urine culture s/p lap G-tube 03/27 Abnormal chest x-ray consistent with COVID-19 viral pneumonia. Diabetic ketoacidosis--resolved obesity contributing to hypoxia as well. BOB . hemodialysis started 03/07 DVT GI prophylaxis Nutritional support Right PICC line February 14 out; left PICC line 04/07/2021 Right IJ HDC clean March 07 34 min cc time Vitals/I&O Vitals/I&O: Vital Signs Date Time Temp Pulse Resp B/P (MAP) Pulse Ox O2 Delivery O2 Flow Rate FiO2 04/25/21 07:48 100 Nasal Cannula 2.0 04/25/21 07:00 97.5 111 18 193/63 (106) 97.5 I & O 04/24/21 04/24/21 04/25/21 15:00 23:00 07:00 Intake Total 0 ml 420 ml Output Total 1700 ml 2150 ml Balance -1700 ml -1730 ml Physical Exam Physical Exam: GENERAL: No acute distress HEENT: Normocephalic, atraumatic. Anicteric. Neck right IJ HDC clean Trach + capped LUNGS: Decreased breath sounds otherwise clear HEART: S1, S2. No murmurs. ABDOMEN: Obese, soft. Bowel sounds present. Nontender, nondistended. PEG tube pulled out by patient EXTREMITIES: Edema present no cyanosis. CENTRAL NERVOUS SYSTEM: Intubated. PSYCHIATRIC: Confused Derm has pressure wounds wound pictures noted in chart. Generalized rash, Right PICC line removed; left PICC line 04/07/2021 Right IJ HDC clean March 07 General: Alert, Cooperative, No acute distress Heart: Normal S1, Normal S2, Other (Tachycardic) Lungs: Crackles Abdomen: Soft, Other (ND) Extremities: No cyanosis, Other (ANASARCA) Skin: No rashes, No significant lesion Labs Labs: Laboratory Tests Test 04/24/21 11:08 04/24/21 16:14 04/24/21 20:11 04/25/21 05:45 Glucose (Fingerstick) 293 mg/dL (70-99) 239 mg/dL (70-99) 401 mg/dL (70-99) White Blood Count 13.6 x10^3/uL (4.0-11.0) Red Blood Count 2.96 x10^6/uL (3.50-5.40) Hemoglobin 8.4 g/dL (12.0-15.5) Hematocrit 25.2 % (36.0-47.0) Mean Corpuscular Volume 85 fL (79-100) Mean Corpuscular Hemoglobin 28 pg (25-35) Mean Corpuscular Hemoglobin Concent 34 g/dL (31-37) Red Cell Distribution Width 14.4 % (11.5-14.5) Platelet Count 258 x10^3/uL (140-400) Neutrophils (%) (Auto) 67 % (31-73) Lymphocytes (%) (Auto) 18 % (24-48) Monocytes (%) (Auto) 10 % (0-9) Eosinophils (%) (Auto) 3 % (0-3) Basophils (%) (Auto) 1 % (0-3) Neutrophils # (Auto) 9.1 x10^3/uL (1.8-7.7) Lymphocytes # (Auto) 2.5 x10^3/uL (1.0-4.8) Monocytes # (Auto) 1.4 x10^3/uL (0.0-1.1) Eosinophils # (Auto) 0.5 x10^3/uL (0.0-0.7) Basophils # (Auto) 0.1 x10^3/uL (0.0-0.2) Sodium Level 134 mmol/L (136-145) Potassium Level 4.1 mmol/L (3.5-5.1) Chloride Level 96 mmol/L (98-107) Carbon Dioxide Level 33 mmol/L (21-32) Anion Gap 5 (6-14) Blood Urea Nitrogen 24 mg/dL (7-20) Creatinine 1.9 mg/dL (0.6-1.0) Estimated GFR (Cockcroft-Gault) 28.6 Glucose Level 147 mg/dL (70-99) Calcium Level 9.3 mg/dL (8.5-10.1) Test 04/25/21 07:07 Glucose (Fingerstick) 153 mg/dL (70-99) Assessment and Plan Assessmemt and Plan Problems Medical Problems: (1) Ketoacidosis Status: Acute Comment Review of Relevant I have reviewed the following items mazin (where applicable) has been applied. Medications: Current Medications Medications (Trade) Dose Ordered Sig/Pepe Route PRN Reason Start Time Stop Time Status Last Admin Dose Admin Insulin Glargine (Lantus Syringe) 20 unit BID SQ 04/24/21 21:00 04/24/21 22:15 Insulin Human Lispro (HumaLOG) 15 units 1X ONCE SQ 04/24/21 21:15 04/24/21 21:16 DC 04/24/21 22:14 Justifications for Admission Other Justification SANDI ALCARAZ MD Apr 25, 2021 09:13
[2021-04-25 10:00] VITALS: BP 148/70
[2021-04-25] MEDS: DOCUSATE 100 MG/10 ML SOLUTION. PO SCH ×2 (10:06→21:48)
[2021-04-25] MEDS: MULTIVITAMINS,THERAPEUTIC 5 ML ORAL LIQUID. PEG SCH (10:06)
[2021-04-25] MEDS: FAMOTIDINE 20 MG/2 ML VIAL IVP SCH (10:06)
[2021-04-25] MEDS: fentaNYL 25MCG/HR PATCH 1 PATCH PATCH.TD72 TD SCH (10:06)
[2021-04-25] MEDS: INSULIN GLARGINE SYRINGE. SQ SCH ×2 (10:09→21:45)
[2021-04-25] MEDS ORDERED: IV NORMAL SALINE 1000ML BAG 1,000 ML IV ONE (10:15)
--- NOTE | 2021-04-25 10:50 | PDOC ---
PULMONARY PROGRESS NOTES DATE: 04/25/21 TIME: 10:48 Subjective Patient had longstanding respiratory failure after Covid pneumonia and ARDS. She has been off mechanical ventilation. Her tracheostomy was removed yesterday. She is talking today her tracheostomy site is clean. She denies shortness of breath. Her activity level is still minimal and that she will walk a couple of steps to the bedside commode. She is working with physical therapy. Vitals Vital Signs Date Time Temp Pulse Resp B/P (MAP) Pulse Ox O2 Delivery O2 Flow Rate FiO2 04/25/21 10:06 100 2.0 04/25/21 10:00 98.3 114 18 148/70 (96) Nasal Cannula 98.3 ROS: No Nausea, No Chest Pain, No Abdominal Pain, No Increase Cough General: Alert, Oriented X4 Lungs: Crackles Cardiovascular: S1, S2 Abdomen: Soft, Non-tender Neuro Exam: Alert, Normal Speech Skin: Warm Labs Laboratory Tests Test 04/23/21 11:56 04/23/21 16:07 04/23/21 20:32 04/24/21 05:30 Glucose (Fingerstick) 295 mg/dL (70-99) 207 mg/dL (70-99) 360 mg/dL (70-99) White Blood Count 12.2 x10^3/uL (4.0-11.0) Red Blood Count 3.03 x10^6/uL (3.50-5.40) Hemoglobin 8.6 g/dL (12.0-15.5) Hematocrit 25.8 % (36.0-47.0) Mean Corpuscular Volume 85 fL (79-100) Mean Corpuscular Hemoglobin 28 pg (25-35) Mean Corpuscular Hemoglobin Concent 33 g/dL (31-37) Red Cell Distribution Width 14.5 % (11.5-14.5) Platelet Count 271 x10^3/uL (140-400) Neutrophils (%) (Auto) 64 % (31-73) Lymphocytes (%) (Auto) 21 % (24-48) Monocytes (%) (Auto) 11 % (0-9) Eosinophils (%) (Auto) 4 % (0-3) Basophils (%) (Auto) 1 % (0-3) Neutrophils # (Auto) 7.7 x10^3/uL (1.8-7.7) Lymphocytes # (Auto) 2.6 x10^3/uL (1.0-4.8) Monocytes # (Auto) 1.3 x10^3/uL (0.0-1.1) Eosinophils # (Auto) 0.4 x10^3/uL (0.0-0.7) Basophils # (Auto) 0.1 x10^3/uL (0.0-0.2) Sodium Level 131 mmol/L (136-145) Potassium Level 4.3 mmol/L (3.5-5.1) Chloride Level 95 mmol/L (98-107) Carbon Dioxide Level 29 mmol/L (21-32) Anion Gap 7 (6-14) Blood Urea Nitrogen 30 mg/dL (7-20) Creatinine 2.1 mg/dL (0.6-1.0) Estimated GFR (Cockcroft-Gault) 25.5 Glucose Level 258 mg/dL (70-99) Calcium Level 9.4 mg/dL (8.5-10.1) Test 04/24/21 07:24 04/24/21 11:08 04/24/21 16:14 04/24/21 20:11 Glucose (Fingerstick) 283 mg/dL (70-99) 293 mg/dL (70-99) 239 mg/dL (70-99) 401 mg/dL (70-99) Test 04/25/21 05:45 04/25/21 07:07 White Blood Count 13.6 x10^3/uL (4.0-11.0) Red Blood Count 2.96 x10^6/uL (3.50-5.40) Hemoglobin 8.4 g/dL (12.0-15.5) Hematocrit 25.2 % (36.0-47.0) Mean Corpuscular Volume 85 fL (79-100) Mean Corpuscular Hemoglobin 28 pg (25-35) Mean Corpuscular Hemoglobin Concent 34 g/dL (31-37) Red Cell Distribution Width 14.4 % (11.5-14.5) Platelet Count 258 x10^3/uL (140-400) Neutrophils (%) (Auto) 67 % (31-73) Lymphocytes (%) (Auto) 18 % (24-48) Monocytes (%) (Auto) 10 % (0-9) Eosinophils (%) (Auto) 3 % (0-3) Basophils (%) (Auto) 1 % (0-3) Neutrophils # (Auto) 9.1 x10^3/uL (1.8-7.7) Lymphocytes # (Auto) 2.5 x10^3/uL (1.0-4.8) Monocytes # (Auto) 1.4 x10^3/uL (0.0-1.1) Eosinophils # (Auto) 0.5 x10^3/uL (0.0-0.7) Basophils # (Auto) 0.1 x10^3/uL (0.0-0.2) Sodium Level 134 mmol/L (136-145) Potassium Level 4.1 mmol/L (3.5-5.1) Chloride Level 96 mmol/L (98-107) Carbon Dioxide Level 33 mmol/L (21-32) Anion Gap 5 (6-14) Blood Urea Nitrogen 24 mg/dL (7-20) Creatinine 1.9 mg/dL (0.6-1.0) Estimated GFR (Cockcroft-Gault) 28.6 Glucose Level 147 mg/dL (70-99) Calcium Level 9.3 mg/dL (8.5-10.1) Glucose (Fingerstick) 153 mg/dL (70-99) Laboratory Tests Test 04/24/21 11:08 04/24/21 16:14 04/24/21 20:11 04/25/21 05:45 Glucose (Fingerstick) 293 mg/dL (70-99) 239 mg/dL (70-99) 401 mg/dL (70-99) White Blood Count 13.6 x10^3/uL (4.0-11.0) Red Blood Count 2.96 x10^6/uL (3.50-5.40) Hemoglobin 8.4 g/dL (12.0-15.5) Hematocrit 25.2 % (36.0-47.0) Mean Corpuscular Volume 85 fL (79-100) Mean Corpuscular Hemoglobin 28 pg (25-35) Mean Corpuscular Hemoglobin Concent 34 g/dL (31-37) Red Cell Distribution Width 14.4 % (11.5-14.5) Platelet Count 258 x10^3/uL (140-400) Neutrophils (%) (Auto) 67 % (31-73) Lymphocytes (%) (Auto) 18 % (24-48) Monocytes (%) (Auto) 10 % (0-9) Eosinophils (%) (Auto) 3 % (0-3) Basophils (%) (Auto) 1 % (0-3) Neutrophils # (Auto) 9.1 x10^3/uL (1.8-7.7) Lymphocytes # (Auto) 2.5 x10^3/uL (1.0-4.8) Monocytes # (Auto) 1.4 x10^3/uL (0.0-1.1) Eosinophils # (Auto) 0.5 x10^3/uL (0.0-0.7) Basophils # (Auto) 0.1 x10^3/uL (0.0-0.2) Sodium Level 134 mmol/L (136-145) Potassium Level 4.1 mmol/L (3.5-5.1) Chloride Level 96 mmol/L (98-107) Carbon Dioxide Level 33 mmol/L (21-32) Anion Gap 5 (6-14) Blood Urea Nitrogen 24 mg/dL (7-20) Creatinine 1.9 mg/dL (0.6-1.0) Estimated GFR (Cockcroft-Gault) 28.6 Glucose Level 147 mg/dL (70-99) Calcium Level 9.3 mg/dL (8.5-10.1) Test 04/25/21 07:07 Glucose (Fingerstick) 153 mg/dL (70-99) Medications Active Scripts Medications Dose Route/Sig Max Daily Dose Days Date Category Novolog Flexpen (Insulin Aspart) 100 Unit/1 Ml Insuln.pen 3-7 SQ TIDACHC 02/07/21 Reported Lisinopril 5 Mg Tablet 1 Tab PO DAILY 02/07/21 Reported Lantus Solostar (Insulin Glargine,Hum.rec.anlog) 100 Unit/1 Ml Insuln.pen 5 Unit SQ QHS 04/09/15 Reported Atorvastatin Calcium 40 Mg Tablet 40 Mg PO HS 04/09/15 Reported Impression . IMPRESSION: 1. Acute hypoxic respiratory failure secondary to COVID-19 viral pneumonia/acute lung injury and early acute respiratory distress syndrome. S/P intubation 02/17/21. Status post tracheostomy. Decannulated 04/24 2. Nonsmoker. 3. Abnormal chest x-ray consistent with COVID-19 viral pneumonia. 4. Diabetic ketoacidosis--resolved 5. Underlying obesity contributing to hypoxia as well. 6. BOB . hemodialysis started 03/07 7. Fever, 30 ID 8. Abnormal chest x-ray with diffuse interstitial infiltrates compatible with viral pneumonia 9. [place] in the sputum is a contamination 10. Septic shoc 11. s/p lap G-tube 03/27 12. Delirium Plan . Updated 04/24 I decannulated patient, no respiratory distress no stridor I walked back in 20 minutes later she was eating not having any respiratory distress Continue current support We will see as needed updated 04/21 Discussed with RT will change to 6 Shiley I occluded her current trach tube, patient was having difficulty breathing Will change to a 6 Shiley, smaller trach tube, hopefully she will be able to t olerate capping updated 04/20 Continue current care We will discussed with RT Trach shield for now updated 04/17 Patient asleep I did not wake her up Continue current support On visual inspection no respiratory distress was noted CRISTY LOOMIS MD Apr 25, 2021 10:50
--- NOTE | 2021-04-25 14:52 | PDOC ---
DATE OF SERVICE DATE: 04/25/21 TIME: 14:50 SUBJECTIVE ROS on O2 by NC, stable No complaints OBJECTIVE Vital Signs Vital Signs Date Time Temp Pulse Resp B/P (MAP) Pulse Ox O2 Delivery O2 Flow Rate FiO2 04/25/21 14:13 100 Room Air 2.0 04/25/21 10:00 98.3 114 18 148/70 (96) 98.3 I & 0 Intake and Output 04/25/21 07:00 Intake Total 420 ml Output Total 3850 ml Balance -3430 ml Intake Oral 420 ml Output Urine Total 3850 ml PHYSICAL EXAM Physical Exam GENERAL: NAD , HEENT: Anicteric. . OM moist Neck supple LUNGS: decreased at bases HEART: S1, S2. No murmurs. ABDOMEN: Obese, soft. Bowel sounds present. EXTREMITIES: no cyanosis. DIAGNOSIS/ASSESSMENT Assessment & Plan BOB-ATN- Improving renal function . Required dialysis , last was on Tuesday (04/10) E-Lytes, Resp status stable. Supportive care, I/O avoid nephrotoxins, HypoNatremia - mild DM 2 - COVID 19 Pneumonia - Unvaccinated , treated Acute Resp Failure- requuired intubation/Trach . Decannulation on 04/24 HTN Anemia -avoid DOYLE 2/2 to Thrombogenic state Family History of ESRD - Per at bedside- Pt's Mom was on dialysis and sister is on Dialysis COMMENT/RELEVANT DATA Meds Current Medications Medications (Trade) Dose Ordered Sig/Pepe Start Time Stop Time Status Last Admin Dose Admin Acetaminophen (Tylenol Supp) 650 mg PRN Q6HRS PRN 02/08/21 01:45 02/17/21 10:45 DC Acetaminophen (Tylenol) 500 mg 1X PRN PRN 03/17/21 13:30 03/18/21 13:29 DC Albumin Human 200 ml @ 200 mls/hr 1X PRN PRN 04/06/21 08:45 04/06/21 14:44 DC 04/06/21 10:43 200 MLS/HR Albuterol Sulfate (Ventolin Hfa) 60 puff STK-MED ONCE 03/17/21 11:29 03/17/21 11:29 DC Albuterol Sulfate (Ventolin Neb Soln) 2.5 mg PRN Q4HRS PRN 04/19/21 13:00 04/21/21 05:30 2.5 MG Albuterol/ Ipratropium (Duoneb) 3 ml RTQID 04/15/21 10:00 04/25/21 11:31 DC 04/25/21 11:24 3 ML Alteplase, Recombinant (Cathflo For Central Catheter Clearance) 1 mg 1X ONCE 02/27/21 14:30 02/27/21 14:36 DC 02/27/21 15:19 1 MG Alteplase, Recombinant (Cathflo) 2 mg 1X ONCE 02/27/21 11:00 02/27/21 11:01 DC 02/27/21 11:20 2 MG Amlodipine Besylate (Norvasc) 10 mg DAILY 03/31/21 09:00 04/20/21 11:15 DC 04/20/21 08:36 10 MG Atorvastatin Calcium (Lipitor) 40 mg HS 02/08/21 21:00 04/24/21 22:13 40 MG Atropine Sulfate (ATROPINE 0.5mg SYRINGE) 0.5 mg PRN Q5MIN PRN 02/16/21 12:00 Azithromycin 250 mg/Sodium Chloride 250 ml @ 250 mls/hr Q24H 02/14/21 13:30 02/18/21 14:29 DC 02/18/21 11:51 250 MLS/HR Barium Sulfate (Varibar Thin Liquid Apple) 148 gm 1X ONCE 04/17/21 10:00 04/17/21 10:02 DC 04/17/21 11:30 148 GM Benzonatate (Tessalon Perle) 100 mg [id number] 02/10/21 23:30 02/17/21 10:45 DC 02/16/21 22:07 100 MG Bupivacaine HCl/ Epinephrine Bitart (Sensorcain-Epi 0.5% Kit) 30 ml STK-MED ONCE 03/27/21 10:05 03/27/21 10:05 DC 03/27/21 13:12 16 ML Bupivacaine HCl/ Epinephrine Bitart (Sensorcain-Epi 0.5%-1:[id number] Mpf) 30 ml STK-MED ONCE 03/17/21 10:47 03/17/21 10:47 DC Carvedilol (Coreg) 6.25 mg [id number] 02/08/21 20:30 02/23/21 15:50 DC 02/23/21 08:06 6.25 MG Cefazolin Sodium/ Dextrose (Ancef 2gm Premix) 2 gm STK-MED ONCE 03/23/21 13:00 03/24/21 11:58 DC Ceftriaxone Sodium (Rocephin) 1 gm Q24H 02/14/21 13:00 02/23/21 07:34 DC 02/22/21 12:42 1 GM Cellulose (Surgicel Fibrillar 1x2) 1 each STK-MED ONCE 03/17/21 10:47 03/17/21 10:47 DC 03/17/21 11:56 1 EACH Daptomycin 480 mg/ Sodium Chloride 50 ml @ 100 mls/hr QMWF 03/23/21 16:00 03/26/21 10:29 DC 03/25/21 19:52 100 MLS/HR Daptomycin 500 mg/ Sodium Chloride 50 ml @ 100 mls/hr Q48H 04/02/21 10:00 04/09/21 10:52 DC 04/08/21 13:14 100 MLS/HR Dexamethasone Sodium Phosphate (Decadron) 2 mg 1X ONCE 02/27/21 09:00 02/26/21 07:15 DC Dexmedetomidine HCl 400 mcg/ Sodium Chloride 100 ml @ 0 mls/hr CONT PRN 02/27/21 09:45 04/16/21 15:07 DC 04/15/21 05:36 0.2 MLS/HR Dextrose (Dextrose 50%-Water Syringe) 12.5 gm PRN Q15MIN PRN 03/01/21 13:00 03/01/21 12:55 12.5 GM Diphenhydramine HCl (Benadryl Oral Elixir) 25 mg PRN Q6HRS PRN 04/20/21 09:45 04/24/21 22:13 25 MG Diphenhydramine HCl (Benadryl) 25 mg 1X PRN PRN 03/17/21 13:30 03/18/21 13:29 DC Docusate Sodium (Colace Solution) 100 mg BID 02/23/21 12:00 04/25/21 10:06 100 MG Docusate Sodium (Colace) 100 mg PRN DAILY PRN 02/07/21 08:45 02/23/21 10:47 DC Enalaprilat (Vasotec Inj) 0.625 mg Q6HRS 02/08/21 16:15 02/09/21 16:01 DC 02/09/21 13:42 0.625 MG Enoxaparin Sodium (Lovenox 30mg Syringe) 30 mg Q24H 03/08/21 09:00 03/12/21 15:38 DC 03/12/21 09:04 30 MG Enoxaparin Sodium (Lovenox 40mg Syringe) 40 mg BID 02/09/21 09:00 03/08/21 13:56 DC 03/08/21 08:26 40 MG Enoxaparin Sodium (Lovenox Per Pharmacy Prophylaxis Dosing) 1 each PRN DAILY PRN 02/09/21 06:45 03/12/21 15:38 DC Ephedrine Sulfate (ePHEDrine PF IN SALINE SYRINGE) 50 mg STK-MED ONCE 03/17/21 10:56 03/17/21 10:56 DC Famotidine (Pepcid Vial) 20 mg DAILY 03/10/21 09:00 04/25/21 10:06 20 MG Fentanyl (Duragesic 25mcg/ Hr Patch) 1 patch Q3DAYS 04/13/21 13:00 04/25/21 10:06 1 PATCH Fentanyl Citrate (Fentanyl 2ml Vial) 100 mcg 1X ONCE 04/13/21 14:00 04/13/21 14:03 DC 04/13/21 13:54 50 MCG Fluconazole/ Sodium Chloride 100 ml @ 100 mls/hr Q24H 03/07/21 09:00 03/17/21 08:03 DC 03/16/21 08:29 100 MLS/HR Fluoxetine HCl (PROzac) 20 mg 1X ONCE 04/10/21 11:15 04/10/21 11:34 DC Furosemide (Lasix) 40 mg 1X ONCE 03/29/21 15:00 03/29/21 15:02 DC 03/29/21 15:22 40 MG Glycerin/ Hypromellose/ Polyethylene (Artificial Tears) 1 drop PRN Q1HR PRN 02/17/21 10:00 04/05/21 08:02 1 DROP Glycopyrrolate (Robinul) 1 mg STK-MED ONCE 03/27/21 14:07 03/27/21 14:07 DC Guaifenesin (Robitussin Dm) 10 ml PRN Q6HRS PRN 02/10/21 23:30 04/23/21 22:12 10 ML Haloperidol Lactate (Haldol Inj) 5 mg Q8HRS 04/01/21 11:30 04/07/21 14:58 DC 04/07/21 05:51 5 MG Heparin Sodium (Porcine) (Heparin Sodium) 5,000 unit Q8HRS 03/13/21 06:00 04/25/21 14:39 5,000 UNIT Hydralazine HCl (Apresoline Inj) 10 mg PRN Q4HRS PRN 02/11/21 12:15 04/22/21 22:29 10 MG Hydromorphone HCl (Dilaudid) 0.5 mg PRN Q10MIN PRN 03/27/21 06:00 03/28/21 05:59 DC Info (CONTRAST GIVEN -- Rx MONITORING) 1 each PRN DAILY PRN 04/13/21 13:45 04/15/21 13:44 DC Info (PHARMACY MONITORING -- do not chart) 1 each PRN DAILY PRN 04/10/21 13:30 Cancel Insulin Glargine (Lantus Syringe) 20 unit BID 04/24/21 21:00 04/25/21 10:09 20 UNIT Insulin Human Lispro (HumaLOG) 15 units 1X ONCE 04/24/21 21:15 04/24/21 21:16 DC 04/24/21 22:14 15 UNITS Insulin Human Regular 100 ml @ 10 mls/hr 1X ONCE 02/07/21 06:30 02/07/21 16:54 DC 02/07/21 09:31 6.5 MLS/HR Insulin Human Regular 100 unit/ Sodium Chloride 101 ml @ 0 mls/hr CONT PRN PRN 02/07/21 06:00 02/07/21 16:54 DC Iohexol (Omnipaque 240 Mg/ml) 50 ml 1X ONCE 04/13/21 13:45 04/13/21 13:46 DC 04/13/21 13:45 28 ML Labetalol HCl (Normodyne Iv Push) 10 mg PRN Q2HR PRN 02/08/21 00:45 04/16/21 19:53 10 MG Lactobacillus Rhamnosus (Culturelle) 1 cap BID 02/16/21 21:00 02/17/21 10:45 DC 02/16/21 22:02 1 CAP Lidocaine HCl (Buffered Lidocaine 1%) 3 ml STK-MED ONCE 03/07/21 13:25 03/07/21 13:25 DC Linezolid (Zyvox) 600 mg BID 03/05/21 09:00 03/12/21 07:00 DC 03/11/21 20:33 600 MG Linezolid/Dextrose 300 ml @ 300 mls/hr Q12HR 04/09/21 12:00 04/11/21 12:54 DC 04/11/21 09:59 300 MLS/HR Lisinopril (Prinivil) 20 mg DAILY 02/17/21 09:00 03/09/21 10:43 DC 02/27/21 09:10 20 MG Lorazepam (Ativan Inj) 1 mg PRN Q2HR PRN 04/10/21 11:15 04/25/21 10:16 1 MG Magnesium Sulfate 50 ml @ 25 mls/hr 1X ONCE 04/17/21 18:00 04/17/21 19:59 DC 04/17/21 17:31 25 MLS/HR Meropenem 1 gm/ Sodium Chloride 100 ml @ 200 mls/hr Q24H 03/18/21 17:00 04/10/21 11:57 DC 04/09/21 17:00 200 MLS/HR Methylprednisolone Sodium Succinate (SOLU-Medrol 125MG VIAL) 80 mg Q8HRS 02/25/21 09:00 02/26/21 07:09 DC 02/26/21 05:52 80 MG Metoclopramide HCl (Reglan Vial) 10 mg PRN Q6HRS PRN 02/08/21 00:45 02/12/21 15:51 10 MG Micafungin Sodium 100 mg/Dextrose 100 ml @ 100 mls/hr Q24H 03/21/21 18:00 03/25/21 10:27 DC 03/24/21 16:36 100 MLS/HR Midazolam HCl (Versed) 2 mg 1X ONCE 04/13/21 14:00 04/13/21 14:03 DC 04/13/21 13:54 2 MG Morphine Sulfate (Morphine Sulfate) 1 mg PRN Q10MIN PRN 03/27/21 06:00 03/28/21 05:59 DC Multi-Ingred Cream/Lotion/Oil/ Oint (Artificial Tears Eye Ointment) 1 reji PRN Q1HR PRN 03/17/21 17:30 03/20/21 15:55 1 REJI Multivitamins/ Minerals Therapeutic (Centrum Multivit-Mineral Liq) 5 ml DAILY 03/14/21 09:00 04/25/21 10:06 5 ML Naloxone HCl (Narcan) 0.4 mg PRN Q2MIN PRN 03/27/21 14:30 Neostigmine Hastings (Neostigmine Methylsulfate) 5 mg STK-MED ONCE 03/27/21 14:06 03/27/21 14:07 DC Norepinephrine Bitartrate 8 mg/ Dextrose 258 ml @ 21.711 mls/ hr CONT PRN 03/06/21 13:45 04/15/21 14:14 DC 03/19/21 18:45 23.3 MLS/HR Nystatin (Nystop) 1 reji BID 03/02/21 21:00 04/25/21 09:00 1 REJI Ondansetron HCl (Zofran Odt) 4 mg 1X ONCE 02/06/21 23:30 02/06/21 23:31 DC 02/06/21 23:57 4 MG Ondansetron HCl (Zofran) 4 mg STK-MED ONCE 04/13/21 13:33 04/13/21 13:33 DC Oxycodone/ Acetaminophen (Percocet 5/325) 2 tab PRN Q4HRS PRN 04/19/21 11:45 Phenylephrine HCl (PHENYLEPHRINE in 0.9% NACL PF) 1 mg STK-MED ONCE 03/27/21 13:46 03/27/21 13:46 DC Piperacillin Sod/ Tazobactam Sod (Zosyn Per Pharmacy) 1 each PRN DAILY PRN 02/23/21 07:45 03/17/21 10:04 DC Piperacillin Sod/ Tazobactam Sod 2.25 gm/Sodium Chloride 50 ml @ 100 mls/hr Q8HRS 03/07/21 14:00 03/17/21 08:03 DC 03/17/21 05:58 100 MLS/HR Piperacillin Sod/ Tazobactam Sod 3.375 gm/Sodium Chloride 50 ml @ 100 mls/hr Q6HRS 03/14/21 18:00 Cancel Piperacillin Sod/ Tazobactam Sod 4.5 gm/Sodium Chloride 100 ml @ 200 mls/hr Q6HRS 02/23/21 08:00 03/07/21 08:18 DC 03/07/21 06:12 200 MLS/HR Potassium Bicarbonate (Potassium Effervescent Tablet) 40 meq 1X ONCE 04/16/21 09:00 04/16/21 09:04 DC 04/16/21 09:22 40 MEQ Potassium Chloride/Water 100 ml @ 50 mls/hr Q2HR 04/17/21 18:00 04/17/21 21:59 DC 04/17/21 21:55 50 MLS/HR Potassium Chloride (Klor-Con) 40 meq 1X ONCE 02/13/21 12:00 02/13/21 12:01 DC 02/13/21 13:21 40 MEQ Prochlorperazine Edisylate (Compazine) 5 mg PACU PRN PRN 03/27/21 06:00 03/28/21 05:59 DC Propofol (Diprivan) 200 mg STK-MED ONCE 03/27/21 12:02 03/27/21 12:03 DC Remdesivir 100 mg/ Sodium Chloride 230 ml @ 460 mls/hr Q24H 02/15/21 12:00 02/18/21 12:29 DC 02/18/21 11:52 460 MLS/HR Remdesivir 200 mg/ Sodium Chloride 210 ml @ 210 mls/hr 1X ONCE 02/11/21 13:00 02/12/21 11:55 DC 02/11/21 14:33 210 MLS/HR Ringer's Solution 1,000 ml @ 30 mls/hr Q24H 03/27/21 06:00 03/27/21 17:59 DC Rocuronium Hastings (Zemuron) 50 mg STK-MED ONCE 03/27/21 13:16 03/27/21 13:17 DC Sennosides (Senna) 17.2 mg PRN BID PRN 02/07/21 08:45 02/22/21 08:29 17.2 MG Sevoflurane (Ultane) 60 ml STK-MED ONCE 03/27/21 14:19 03/27/21 14:20 DC Sodium Chloride 1,000 ml @ 125 mls/hr 1X ONCE 04/25/21 10:15 04/25/21 18:14 04/25/21 10:15 125 MLS/HR Sodium Chloride (Normal Saline Flush) 3 ml QSHIFT PRN 03/27/21 14:30 Succinylcholine Chloride (Anectine) 200 mg STK-MED ONCE 02/17/21 10:00 02/25/21 08:40 DC Vancomycin HCl (Vanco Per Pharmacy) 1 each PRN DAILY PRN 03/04/21 18:30 03/05/21 08:59 DC 03/04/21 19:47 1 EACH Vancomycin HCl (Vancomycin Trough Level) 1 each 1X ONCE 03/06/21 07:00 03/06/21 07:01 Cancel Vancomycin HCl 1.5 gm/Sodium Chloride 500 ml @ 250 mls/hr Q12H 03/05/21 07:30 03/05/21 08:58 DC Vancomycin HCl 1 gm/Sodium Chloride 250 ml @ 250 mls/hr Q12H 03/04/21 20:00 UNV Vancomycin HCl 2 gm/Sodium Chloride 500 ml @ 250 mls/hr 1X ONCE 03/04/21 19:00 03/04/21 20:59 DC 03/04/21 19:26 250 MLS/HR Vecuronium Hastings (Norcuron Bolus) 6 mg PRN Q2HRS PRN 03/06/21 14:30 04/16/21 14:59 DC 03/16/21 10:16 5 MG Vitamin A/Vitamin D (Vitamin A & D Ointment) 1 erji PRN Q1HR PRN 03/10/21 01:45 03/20/21 09:34 1 REJI Zolpidem Tartrate (Ambien) 5 mg PRN QHS PRN 04/10/21 11:15 Lab Laboratory Tests Test 04/24/21 16:14 04/24/21 20:11 04/25/21 05:45 04/25/21 07:07 Glucose (Fingerstick) 239 mg/dL (70-99) 401 mg/dL (70-99) 153 mg/dL (70-99) White Blood Count 13.6 x10^3/uL (4.0-11.0) Red Blood Count 2.96 x10^6/uL (3.50-5.40) Hemoglobin 8.4 g/dL (12.0-15.5) Hematocrit 25.2 % (36.0-47.0) Mean Corpuscular Volume 85 fL (79-100) Mean Corpuscular Hemoglobin 28 pg (25-35) Mean Corpuscular Hemoglobin Concent 34 g/dL (31-37) Red Cell Distribution Width 14.4 % (11.5-14.5) Platelet Count 258 x10^3/uL (140-400) Neutrophils (%) (Auto) 67 % (31-73) Lymphocytes (%) (Auto) 18 % (24-48) Monocytes (%) (Auto) 10 % (0-9) Eosinophils (%) (Auto) 3 % (0-3) Basophils (%) (Auto) 1 % (0-3) Neutrophils # (Auto) 9.1 x10^3/uL (1.8-7.7) Lymphocytes # (Auto) 2.5 x10^3/uL (1.0-4.8) Monocytes # (Auto) 1.4 x10^3/uL (0.0-1.1) Eosinophils # (Auto) 0.5 x10^3/uL (0.0-0.7) Basophils # (Auto) 0.1 x10^3/uL (0.0-0.2) Sodium Level 134 mmol/L (136-145) Potassium Level 4.1 mmol/L (3.5-5.1) Chloride Level 96 mmol/L (98-107) Carbon Dioxide Level 33 mmol/L (21-32) Anion Gap 5 (6-14) Blood Urea Nitrogen 24 mg/dL (7-20) Creatinine 1.9 mg/dL (0.6-1.0) Estimated GFR (Cockcroft-Gault) 28.6 Glucose Level 147 mg/dL (70-99) Calcium Level 9.3 mg/dL (8.5-10.1) Test 04/25/21 11:11 Glucose (Fingerstick) 253 mg/dL (70-99) Results All relevant outside records, renal labs, imaging studies, telemetry/EKG's were reviewed. Justicifation of Admission Dx: Justifications for Admission: Justification of Admission Dx: N/A GIGI CARMEN MD Apr 25, 2021 14:52
[2021-04-25 15:00] VITALS: BP 98/57
[2021-04-25] MEDS: diphenhydrAMINE ORAL ELIXIR 12.5 MG/5 ML ML PEG PRN ×2 (16:28→21:47)
[2021-04-25 19:21] VITALS: BP 136/71
[2021-04-25] MEDS: ATORVASTATIN CALCIUM 40 MG TABLET. PO SCH (21:47)
[2021-04-25] MEDS: ONDANSETRON PF 4 MG/2 ML VIAL. IVP PRN (21:48)
[2021-04-25] MEDS: ACETAMINOPHEN 650 MG/20.3 ML SOLUTION. PEG PRN (21:50)
[2021-04-25 22:55] VITALS: BP 147/76
[2021-04-26 02:47] VITALS: BP 133/59
[2021-04-26] MEDS: HEPARIN for SUB-Q USE 5,000 UNIT/ML VIAL. SQ SCH ×3 (05:57→21:01)
[2021-04-26 06:30] LABS: BASO # 0.1 x10^3/uL (0.0-0.2); BASO % 1 % (0-3); EOS # 0.5 x10^3/uL (0.0-0.7); EOS % 4 % (0-3); HEMATOCRIT 24.7 % (36.0-47.0); HEMOGLOBIN 8.3 g/dL (12.0-15.5); LYMPH # 2.5 x10^3/uL (1.0-4.8); LYMPH % 22 % (24-48); MEAN CORPUSCULAR HEMOGLOBIN 29 pg (25-35); MEAN CORPUSCULAR HGB CONC 34 g/dL (31-37); MEAN CORPUSCULAR VOLUME 85 fL (79-100); MONO # 1.1 x10^3/uL (0.0-1.1); MONO % 9 % (0-9); NEUT # 7.5 x10^3/uL (1.8-7.7); NEUT % 64 % (31-73); PLATELET COUNT 249 x10^3/uL (140-400); RED CELL DISTRIBUTION WIDTH 14.7 % (11.5-14.5); WHITE BLOOD COUNT 11.7 x10^3/uL (4.0-11.0)
[2021-04-26 06:31] LABS: CALCIUM 9.1 mg/dL (8.5-10.1); GFR 26.9; POTASSIUM 4.5 mmol/L (3.5-5.1)
[2021-04-26 07:00] VITALS: BP 119/59
--- NOTE | 2021-04-26 07:34 | PDOC ---
[employer] PROGRESS NOTE Date of Service DOS: DATE: 04/26/21 TIME: 07:22 Chief Complaint Chief Complaint COVID-19 acute hypoxic respiratory failure DKA Hypotension Nausea Vomiting Combined metabolic and respiratory acidosis Acute electrolyte derangementhyponatremia, hypochloremia due to volume deple tion Hyperglycemia BOB due to ATN, requiring dialysis Erythrocytosis Candiduria Sacral decubitus ulcer S/P Trach on (03/17/21) Trach cultures positive for [place] albicans and now acinebacter ursungi History of Present Illness History of Present Illness 04/26: Afebrile, tachycardic, on 2 L nasal cannula. S/P decannulation. payroll services analyst helping to provide patient with Medicaid/disability. Denies any further nausea or vomiting; believes her previous symptoms were secondary to the fluid at this hospital. Complains of sacral pain 01/17. Will provide hydrocodone options, given stated oxycodone allergy. 04/25: Afebrile, breathing on 2 L nasal cannula. Tachycardic. Decannulation yesterday. provided some documentation yesterday to help with Medicaid/disability applications. payroll services analyst following. 04/24: Afebrile. Had decannulation today, per Dr. Perkins Currently breathing on 8 L nasal cannula. Per GI, if vomiting recurs will consider GES. 04/23: Slightly tachycardic this morning, on trach collar with 8 L. Still with some nausea and vomiting. Reconsult GI with some concerns of possible gastroparesis. Continue to monitor off antibiotics and monitor kidney function. 04/22: No acute events overnight, resting comfortably in bed. Creatinine 2.0 today, EGFR 26.9. She is self-pay and med assist following and waiting spouse to provide information to complete necessary applications. Continue to monitor kidney function and monitor off antibiotics. 04/21: Afebrile, resting comfortably in bed. Kidney function remained stable, creatinine 1.8, eGFR 30.4. I believe plans per nephrology are to remove HD line today. We will continue to monitor off antibiotics. payroll services analyst working with to help with emergency Medicare. 04/20: Afebrile, breathing on 10 L trach shield. Had some itching today; ordered as needed Benadryl. Kidney function improved and appears to be stable. Per nephrology, possible HD line removal tomorrow. Per ID, will monitor off antibiotics. 04/19 Patient evaluated and examined at bedside. Sugars pretty high today will need more insulin adjustments. On trach collar when I saw her. Continue diet as tolerated. Discussed with at bedside. Diet as tolerated. Working towards discharge. Continue antibiotics. Will ask renal if temporary HD catheter is still needed if not can remove. 04/18 Patient evaluated examined at bedside. She was on trach collar. Continue regular diet as tolerated. Monitoring blood pressure. Working towards [facility]. 04/17 Patient evaluated and examined at bedside. She is pretty alert today. Underwent video swallow study earlier and cleared for regular diet with thin liquids. Definite improvement for her. On trach collar when I saw her. Continue current treatments. Watch blood pressure. If she well keep up a consistent amount of p.o. intake may be able to stop tube feeds and PEG tube removal. But this is far down the line. 04/16 Patient seen examined at bedside. Transfer out of the ICU yesterday. Speech therapy to evaluate this morning. Improved notably since I last saw her in the ICU. Continue PEG feeds. Blood pressure treatment. Plan of care discussed with bedside RN. 04/15/2021 Patient seen and examined in the ICU She has clean dry intact tracheostomy with trach shield PEG feeds running at 30 cc an hour She really wants to drink water I told her that we are awaiting speech therapy to reevaluate her Chart reviewed Discussed with RN 04/14/2021 Patient seen and examined in the ICU She remains pleasantly confused Has a new PEG in place Discussed with physical therapy Discussed with RN Chart reviewed 04/13/2021 Patient seen and examined in the ICU She is pleasantly confused Sedated with Precedex and fentanyl I discussed with the speech therapist the patient has no laryngeal movement Now she is n.p.o. again Going for new PEG placement in interventional radiology hopefully later today Her trach is clean Chart reviewed Discussed with RN 04/12/2021 Patient seen and examined in the ICU Her is present today and seems to be good support for her Chart reviewed Discussed with RN Still sedated with Precedex and fentanyl but awake 04/11/2021 Patient seen and examined in the ICU She remains quite confused currently sedated Chart reviewed Discussed with RN Had some nausea vomiting last night Pulled out her PEG yesterday Currently on fentanyl and Precedex IV Zyvox hanging 04/10/2021 Patient seen and examined in the ICU She is pleasantly confused Has a trach shield in place Discussed with RN Chart reviewed We are adding in some as needed Ativan and scheduled Prozac Ms Borges is a 46 year old female who presented with nausea/vomiting since 7 AM 02/06/2021 in the morning. Patient stated that her recently tested positive for Covid. She states that he "coughed in my face because he thought it was funny." She reports subjective fevers and chills and nausea/vomiting. Denies sore throat, cough, shortness of breath. No chest pain. Does have some upper abdominal discomfort after vomiting, that she attributes to muscular strain. She was not vaccinated for Covid. 02/08: No acute events overnight. Patient seen and examined bedside and resting comfortably. Continues to complain of nausea not able to tolerate any diet at this time. Saturating 98% on room air. Patient's chart, labs, images were reviewed and discussed with RN 02/09: Afebrile, currently breathing on room air. Still with complaints of nausea and vomiting x3 today. States that she has history of similar symptoms that have been mildly improved with IV Dilaudid. 02/10: Patient febrile today with T-max 102.2 F. She still admits to nausea, denies any further vomiting. We will continue to provide supportive care and monitor for any recurrent fevers overnight. Patient continues to improve may discharge tomorrow to continue self-isolation. 02/11: Febrile overnight, T-max 102.3 F. She did become hypoxic overnight, currently breathing on 4 L nasal cannula. Also admits to associated vomiting or diarrhea overnight. Discussed with RN, will initiate remdesivir and closely monitor LFTs. IV Decadron, and prophylactic antibiotics. 02/12: Low-grade fever overnight, T-max 99.7. Currently breathing on room air. Will discontinue remdesivir, steroids, and antibiotics; will observe overnight. Still with complaints of vomiting x1 and diarrhea. We will continue to provide supportive care and hope to discharge in the next day or so. 02/13: Afebrile. Still complains of intermittent diarrhea. At the time of my evaluation she was breathing on 6 L nasal cannula; this is somewhat misleading as patient states that she did not feel short of breath but was placed on 6 L by nursing staff overnight. 02/14: Afebrile, currently breathing on 8 L nasal cannula. There has been some misleading documentation, chart oxygen this patient is requiring. Discussed with RN, will resume remdesivir to complete total of 5 days. Continue to monitor LFTs. Will add steroids, Rocephin, and azithromycin. 02/15: Afebrile. Became much more hypoxic overnight, requiring BiPAP. At the time of my evaluation she is still breathing on BiPAP. Consultation was placed to pulmonology. Had discussion with Dr. Myrick about initiating Tocilizumab 02/16: No acute events overnight. Patient becoming more hypoxic saturating 94% and requiring BiPAP. Patient will be transferred to the ICU at this time. For worsening clinical status. Discussed with pulmonary. Patient's chart, labs, images were reviewed and discussed with RN 02/17: Transferred to ICU yesterday afternoon. Seen and examined at bedside she remains on 100% FiO2 on BiPAP. Respirations do appear somewhat labored. Suspect intubation may be impending. We will closely monitor. Increase lisinopril to 20 today. 02/18: Patient required intubation yesterday afternoon. Saw and examined this morning. She is intubated and sedated. Increase insulin today. Covid protocol ordered. Wean as tolerated. Plan of care discussed with bedside nurse. 02/19: Bedside. She remains intubated and sedated. Continue Covid protocol. Wean oxygen sedation as tolerated. Pulmonary following. Plan of care discussed with bedside RN. 02/20: Patient seen and examined at bedside. She remains intubated and sedated. No major clinical changes. Continue current treatment. Pulmonary following. Plan of care discussed with bedside RN. 02/21: Patient seen and examined at bedside. Remains intubated and sedated date and admission clinical changes. Increase free water flushes today due to hypernatremia. Plan of care discussed with bedside nurse. 02/22: Patient seen and examined at bedside. O2 requirement actually improving, although remains intubated. Possible SBT in the coming days. Hypernatremia improving. Plan of care discussed bedside RN. 02/23: Patient remains in ICU on ventilator with FiO2 100%, PEEP 7. Repeat chest x-ray yesterday showed diffuse bilateral pulmonary opacities with no interval improvement. Will discontinue Rocephin and initiate Zosyn. We will continue IV steroids for a full 10-day course 02/24: Afebrile. On vent with FiO2 40%, PEEP 6. Her Coreg has been held due to persistent bradycardia. No documented history of systolic heart failure or previous echocardiogram. Will need to obtain echocardiogram prior to discharge. Continue IV steroids and antibiotics. 02/25: Afebrile. Remains ventilated with FiO2 45%, PEEP 6. Chest x-ray today showed slight improvement of the pulmonary infiltrates, no pneumothorax. Completed 10-day course of IV Decadron. Will initiate slow Solu-Medrol taper. Continue IV Zosyn. Continue supportive care. 02/26: Afebrile. On vent with FiO2 45%, PEEP 6. Completed 10 days of IV Decadron. Will continue IV Zosyn. Continue supportive care. Critical care time 30 minutes spent reviewing charts, reviewing imaging, reviewing labs, discussion with RN. 02/27: Afebrile. On vent with FiO2 45%, PEEP 6. Completed 10 days of steroids and completed remdesivir. Continue with IV Zosyn. CPAP trial yesterday. Continue NG tube and supportive care. 02/28:. Patient remains on vent with FiO2 40%, PEEP 5. Afebrile. Completed steroids and remdesivir. Some noted hypoglycemia overnight, will de-escalate basal insulin. Continue IV Zosyn. Ventilator management per pulmonology. Continue NG tube and supportive care. 03/01: On vent with FiO2 40%, PEEP 5. Afebrile. Completed steroids and remdesivir. Blood glucose well controlled. Continue empiric antibiotics with Zosyn. Ventilator management per pulmonology. Continue NG tube and supportive care. 03/02: No acute events overnight. Patient hypotensive the morning due to oversedation. Will wean off sedation and keep antihypertensive medications on board. Currently saturating 100% on vent settings of 18/450/40/5. Will attempt spontaneous breathing trial today to see how patient does. 03/03: No acute events overnight. Patient saturating 98% on vent settings of 18/450/40/5. Will defer spontaneous breathing trials to pulmonary at this time. Patient's chart, labs, images were reviewed and discussed with RN 03/04: No acute events overnight. Patient saturating 9 9% on vent settings of 18/450/30/5. Patient currently is unable to tolerate weaning. Per pulmonary. Patient's chart, labs, images were reviewed and discussed with RN 03/05: No acute events overnight. Patient is saturating 97% on vent settings of 18/450/55/5. Her FiO2 needs to be increased due to abnormal ABG with 7.3 //24. Patient's chart, labs, images were reviewed and discussed with RN 03/06: No acute events overnight. Patient saturating 94% on vent settings of 18/450/55/5. Chest x-ray showing increase in pulmonary infiltrates. Wound care is consulted for decubitus ulcer patient's chart, labs, images were reviewed and discussed with RN 03/07: No acute events overnight. Patient saturating 94% on vent settings of 20/450/70/8. Patient now heading into renal failure with her creatinine bumped up from 1.5-4.2. Decreased urine output. Plan for hemodialysis today and temporary catheter placement and nephrology is consulted. 03/08: No acute events overnight. Patient did have a nausea vomiting episode and tube feeds were held. KUB repeat shows NG tube still in the stomach. Will resume tube feeds at trickle and advance to goal today. Will start hemodialysis soon. 03/09: Seen on vent 20/450/60%/8. ABG 7.2 WBC 11.4, Hb 7.4, platelets 188, NA 131, K4.9, BUN 48, CR 51, glucose 199, phosphorus 7.9, mag 2.2, AST 265 ALT 219, albumin 1.1. Chest radiograph appears unchanged from prior. Dialysis x1 today 03/10: Afebrile. Seen on vent, 20/450/60/7 with ABG 7.3 . Tolerated dialysis well on 03/09. LFTs similar. 03/11: Afebrile. Seen on vent, sedated. Still requiring Levophed for BP support. WBC 16.7, Hb 8.1, NA 130, ABG 7.3 on 55% FiO2 PEEP 6. On Zosyn and Zyvox Diflucan. Dialysis today 03/12: Afebrile. Still requiring Levophed for BP support sedated with Versed febrile Precedex. WBC 16.1, Hb 8.5, platelets 185, NA 133. Trach plan tentatively 03/17. O2 saturations 93% on 50% FiO2 PEEP 6. ABG 7.3835/79 On Zosyn and Zyvox Diflucan. 03/13: Afebrile. Still on Levophed for BP support lightly sedated. 7. on 45% FiO2. Plan for dialysis today. On Zosyn and Zyvox Diflucan. More swollen today. 03/14: Afebrile. Weaning down off Levophed. WBC 14.9 NA 132. O2 saturations 92% on 45% FiO2 PEEP 5. Afebrile. O2 saturations 91% on FiO2 45% PEEP 6. Continued on Zosyn and Zyvox Diflucan. Tentative trach planned 03/17/2021 CC time 31 minutes 03/16/21: Patient seen and examined in ICU. Periorbital as well as upper and lower extremity edema noted. OG feed running at 30cc/hr. Still on vent on pressure control with a rate of 24 with 45% FiO2. Patient has rectal bag. Currently she has 98% O2 sat. Currently sedated with Dexmedetomidine, Propofol, Versed, and Fentanyl. Discussed with RN. Chart reviewed. 03/17/21: Patient was seen and examined in the ICU today. Periorbital edema as well as abdominal and mons pubis edema was noted. Patient still on vent on pressure control with Fi02 of 45% plus 6 PEEP. Patient had rectal bag. Currently sedated on Dexmedetomidine, Propofol, Versed, and Fentanyl. Discussed with RN. Chart reviewed. 03/18/21: Patient seen and examined in ICU. On vent via trach that was placed yesterday. Vent settings are Pressure Control of 40 with FiO2 of 45% and 6 PEEP. Trach clean and dry. Orbital swelling still present. Pupils are sluggish. Patient on TPN running at 30cc/hr. Kern to bedside and rectal bag in place. Current O2 sat at 94%. Sedated on Dexmedetomidine, Propofol, Versed, and Fentanyl. Discussed with RN. Chart reviewed. 03/19/21: Patient was seen and examined in the ICU today. Currently on vent via trach on pressure control of 42, rate of 24, FiO2 of 45%, and 6 PEEP. O2 sat is at 97% while patient is being examined. Trach is clean and dry. PICC line is in place on right arm. Periorbital swelling has decreased slightly since examined yesterday. Patient is sedated on Dexmedetomidine, Propofol, Versed, and Fentanyl. Discussed with RN. Chart reviewed. 03/20/21: Patient seen and examined in the ICU. Periorbital edema is slightly decreased since yesterday. O2 sat while being examined was 93%. NG tube in place and running at 30cc/hr. Patient on vent via trach on pressure control of 40 with FiO2 of 45 and rate of 24. Sedated on Dexmedetomidine, Propofol, Versed, and Fentanyl. PICC line in place. Kern to bedside. Rectal bag present. Discussed with RN. Chart reviewed. 03/21/21: Patient was seen and examined in the ICU today. She was semi-sedated.. She was on Dexmedetomidine and Fentanyl. We are holding the Propofol. Her eyes were periodically open but she was not making meaningful eye contact or tracking. On vent via trach with pressure control of 40 and FiO2 at 45. Rate was 24. PEEP was 5. Trach was clean and dry. While being examined, her O2 sat was 94%. Rectal bag and Kern to bedside in place. NG tube in place and feeding at 30cc/hr. IV fluids still running. Levophed has been stopped. Discussed with RN. Chart reviewed. 03/22/21: Patient was seen and examined in the ICU. She was semi-sedated on Propofol and Dexmedetomidine. Her eyes were open but she did not make meaningful eye contact. Her blood pressure was elevated (198/102) while being examined and she had just been given hydralazine to lower it. There are plans to place a PEG tube tomorrow. Currently on vent via trach on pressure control of 40 with FiO2 of 45%, 5 PEEP, and a rate of 24. Current O2 sat is 98%. She is feeding through an NG tube at 30cc/hr. Rectal bag and Kern to bedside present. SCDs on patient for DVT prophylaxis. She did not do her daily dialysis today but the plan is to start back on that tomorrow. Discussed with RN. Chart reviewed. 03/23/2021: Patient remains in ICU on ventilator. FiO2 40%, PEEP 5. Trach cultures positive for [place] albicans and acinebacter ursungi. We will continue treatment with IV antibiotics and micafungin, per ID. HD per nephrology. Plans for PEG tube placement today. 30 minutes critical care time was spent reviewing charts, reviewing labs, reviewing imaging, discussion with RN. 03/24/2021: Afebrile. On vent with FiO2 45%, PEEP 5. Had attempted PEG placement per GI yesterday, but unable to locate safe path for PEG; will consider surgical opinion. Once PEG is in place she should be stable for LTAC transfer when accepted. Continue antibiotics, per ID. 30 minutes critical care time was spent reviewing charts, reviewing labs, reviewing imaging, discussion with RN. 03/25/2021: Febrile overnight with T-max 101.5 F. On vent with FiO2 45%, PEEP 5. Surgery has been consulted with tentative plans for laparoscopic versus open gastrostomy placement tomorrow. Trach cultures positive for [place] albicans and now acinebacter ursungi; will continue antibiotic management, per ID. Hemodialysis, per nephrology. Patient needing LTAC placement, but currently without benefits. [employer] maintenance worker following for discharge planning. Critical care time 30 minutes spent reviewing charts, reviewing labs, reviewing imaging, discussion with RN. 03/26/2021: Febrile today with T-max 100.5 F. Awake on vent with FiO2 45%, PEEP 5. When I ask if she remembers any she nods. G-tube placement scheduled for tomorrow, per general surgery. Chest x-ray today showed slight interval increase in diffuse infiltrate. Continue antibiotic management, per ID. Hemodialysis per nephrology. Reportedly did not tolerate CPAP trial this morning. [employer] maintenance worker following for LTAC placement. Critical care time 30 minutes spent reviewing charts, reviewing labs, reviewing imaging, discussion with RN. 03/27/2021: On vent with FiO2 45%, PEEP 5. Afebrile today. Continue treatment of acute renal failure requiring HD, per nephrology. Monitor kidney function for recovery. G-tube placement scheduled for today, per general surgery. Likely LTAC placement soon, but this is been a difficult as she is self-pay without benefits; social director following. Critical care time 30 minutes spent reviewing charts, reviewing labs, reviewing imaging, discussion with RN. 03/28/2021: Afebrile. On vent with FiO2 40%, PEEP 5. Had laparoscopic gastrostomy tube placed yesterday, per general surgery. Continue treatment of acute renal failure requiring HD, per nephrology. Continue IV antibiotics, per ID. Likely LTAC placement soon, but this is been a difficult as she is self-pay without benefits; social director following. Critical care time 30 minutes spent reviewing charts, reviewing labs, reviewing imaging, discussion with RN. 03/29/2021: Afebrile. On vent with FiO2 45%, PEEP 5. S/P laparoscopic gastrostomy tube; tube feeds running. HD, per nephrology. Continue meropenem, per ID. Anticipate LTAC placement soon now that PEG has being placed; social director helping in these regards. Critical care time 30 minutes spent reviewing charts, reviewing labs, reviewing imaging, discussion with RN. 03/30 No major events or clinical changes overnight. Patient evaluated at bedside this morning on trach and G-tube. Tolerating these well. Has been working on insurance for patient for placement as she will need long-term care. Guarded prognosis. Plan of care discussed with bedside nurse. 03/31 No major clinical changes. Remains trached. Sedated. Continue current plan. 04/01 No changes. Patient resting in bed when evaluated sedated. is supposed to be working on insurance for placement for the patient. Otherwise no changes. 04/02 Patient febrile overnight, daptomycin added this morning per infectious disease. Otherwise no major clinical changes. Awaiting insurance. Infectious disease, pulmonary and renal following. Plan of care discussed with bedside RN. 04/03 Patient undergoing dialysis today. Evaluated at bedside this morning. otherwise continue current plan. supposed working on insurance. 04/04 No major overnight changes. Continue current plan. 04/05 Patient notably more movement this morning eyes open resting in bed otherwise no major changes. Continue current plan. Insurance pending. 04/06 Patient notably more movement this morning eyes open resting in bed current plan. Insurance pending. Continue daptomycin, renal dosing April 02 F/U Blood culture UA urine culture C. diff PCR negative 32 min cc time 04/07 Patient notably more movement this morning eyes open resting in bed current plan. Insurance pending. Continue daptomycin, renal dosing April 02 F/U Blood culture UA urine culture C. diff PCR negative Abnormal chest x-ray consistent with COVID-19 viral pneumonia. Diabetic ketoacidosis--resolved obesity contributing to hypoxia as well. BOB . hemodialysis started 03/07 DVT GI prophylaxis Nutritional support 34 min cc time 04/08 Patient notably more movement this morning eyes open resting in bed current plan. Insurance pending. Continue daptomycin, renal dosing April 02 F/U Blood culture UA urine culture C. diff PCR negative s/p lap G-tube 03/27 Abnormal chest x-ray consistent with COVID-19 viral pneumonia. Diabetic ketoacidosis--resolved obesity contributing to hypoxia as well. BOB . hemodialysis started 03/07 DVT GI prophylaxis Nutritional support Right PICC line February 14 out; left PICC line 04/07/2021 Right IJ HDC clean March 07 32 min cc time 04/09 non Oliguric for past 11/2 -2 weeks , good response to IV NS bolus .requiring dialysis., currently on MWF schedule, tolerating trach shield well.using her speaking valve./ resting in bed current / states she feels better Start iv Zyvox Cont Meropenem DC daptomycin post PICC line exchange aspiration precautions C. diff PCR negative F/U Blood culture UA urine culture s/p lap G-tube 03/27 Abnormal chest x-ray consistent with COVID-19 viral pneumonia. Diabetic ketoacidosis--resolved obesity contributing to hypoxia as well. BOB . hemodialysis started 03/07 DVT GI prophylaxis Nutritional support Right PICC line February 14 out; left PICC line 04/07/2021 Right IJ HDC clean March 07 34 min cc time Vitals/I&O Vitals/I&O: Vital Signs Date Time Temp Pulse Resp B/P (MAP) Pulse Ox O2 Delivery O2 Flow Rate FiO2 04/26/21 02:47 99.0 110 16 133/59 (83) 99 Nasal Cannula 2.0 99.0 I & O 0 04/25/21 04/25/21 04/26/21 15:00 23:00 07:00 Intake Total 0 ml Output Total 2200 ml 3400 ml Balance -2200 ml -3400 ml Physical Exam Physical Exam: GENERAL: No acute distress HEENT: Normocephalic, atraumatic. Anicteric. Neck right IJ HDC clean Trach + capped LUNGS: Decreased breath sounds otherwise clear HEART: S1, S2. No murmurs. ABDOMEN: Obese, soft. Bowel sounds present. Nontender, nondistended. PEG tube pulled out by patient EXTREMITIES: Edema present no cyanosis. CENTRAL NERVOUS SYSTEM: Intubated. PSYCHIATRIC: Confused Derm has pressure wounds wound pictures noted in chart. Generalized rash, Right PICC line removed; left PICC line 04/07/2021 Right IJ HDC clean March 07 General: Alert, Cooperative, mild distress Heart: Normal S1, Normal S2, Other (Tachycardic) Lungs: Crackles Abdomen: Soft, Other (ND) Extremities: No cyanosis, Other (ANASARCA) Skin: No rashes, No significant lesion Labs Labs: Laboratory Tests Test 04/25/21 11:11 04/25/21 16:33 04/25/21 20:43 04/26/21 06:00 Glucose (Fingerstick) 253 mg/dL (70-99) 309 mg/dL (70-99) 215 mg/dL (70-99) White Blood Count 11.7 x10^3/uL (4.0-11.0) Red Blood Count 2.90 x10^6/uL (3.50-5.40) Hemoglobin 8.3 g/dL (12.0-15.5) Hematocrit 24.7 % (36.0-47.0) Mean Corpuscular Volume 85 fL (79-100) Mean Corpuscular Hemoglobin 29 pg (25-35) Mean Corpuscular Hemoglobin Concent 34 g/dL (31-37) Red Cell Distribution Width 14.7 % (11.5-14.5) Platelet Count 249 x10^3/uL (140-400) Neutrophils (%) (Auto) 64 % (31-73) Lymphocytes (%) (Auto) 22 % (24-48) Monocytes (%) (Auto) 9 % (0-9) Eosinophils (%) (Auto) 4 % (0-3) Basophils (%) (Auto) 1 % (0-3) Neutrophils # (Auto) 7.5 x10^3/uL (1.8-7.7) Lymphocytes # (Auto) 2.5 x10^3/uL (1.0-4.8) Monocytes # (Auto) 1.1 x10^3/uL (0.0-1.1) Eosinophils # (Auto) 0.5 x10^3/uL (0.0-0.7) Basophils # (Auto) 0.1 x10^3/uL (0.0-0.2) Sodium Level 134 mmol/L (136-145) Potassium Level 4.5 mmol/L (3.5-5.1) Chloride Level 97 mmol/L (98-107) Carbon Dioxide Level 31 mmol/L (21-32) Anion Gap 6 (6-14) Blood Urea Nitrogen 24 mg/dL (7-20) Creatinine 2.0 mg/dL (0.6-1.0) Estimated GFR (Cockcroft-Gault) 26.9 Glucose Level 162 mg/dL (70-99) Calcium Level 9.1 mg/dL (8.5-10.1) Test 04/26/21 07:04 Glucose (Fingerstick) 156 mg/dL (70-99) Assessment and Plan Assessmemt and Plan Problems Medical Problems: (1) Ketoacidosis Status: Acute Comment Review of Relevant I have reviewed the following items mazin (where applicable) has been applied. Medications: Current Medications Medications (Trade) Dose Ordered Sig/Pepe Route PRN Reason Start Time Stop Time Status Last Admin Dose Admin Sodium Chloride 1,000 ml @ 125 mls/hr 1X ONCE IV 04/25/21 10:15 04/25/21 18:14 DC 04/25/21 10:15 Justifications for Admission Other Justification SANDI ALCARAZ MD Apr 26, 2021 07:34
[2021-04-26] MEDS: DOCUSATE 100 MG/10 ML SOLUTION. PO SCH ×2 (08:30→21:01)
[2021-04-26] MEDS: ONDANSETRON PF 4 MG/2 ML VIAL. IVP PRN (08:31)
[2021-04-26] MEDS: FAMOTIDINE 20 MG/2 ML VIAL IVP SCH (08:31)
[2021-04-26] MEDS: MULTIVITAMINS,THERAPEUTIC 5 ML ORAL LIQUID. PEG SCH (08:32)
[2021-04-26] MEDS: NYSTATIN TOPICAL POWDER 15GM BOTTLE. TP SCH ×2 (08:33→21:00)
[2021-04-26] MEDS: INSULIN LISPRO 300 UNITS/3 ML VIAL. SQ SCH ×4 (08:36→20:59)
[2021-04-26] MEDS: ACETAMINOPHEN 650 MG/20.3 ML SOLUTION. PEG PRN ×2 (08:43→21:14)
[2021-04-26] MEDS: INSULIN GLARGINE SYRINGE. SQ SCH ×2 (08:58→21:00)
[2021-04-26 10:00] VITALS: BP 142/79
[2021-04-26] MEDS ORDERED: HYDROcodone/APAP 10/325 1 TAB TABLET PO PRN (10:30)
[2021-04-26] MEDS ORDERED: HYDROcodone/APAP 7.5/325MG 1 TAB TABLET PO PRN (10:30)
--- NOTE | 2021-04-26 10:57 | PDOC ---
PULMONARY PROGRESS NOTES DATE: 04/26/21 TIME: 10:55 Subjective Patient had longstanding respiratory failure after Covid pneumonia and ARDS. She has been off mechanical ventilation. Her tracheostomy was removed 04/24. She is talking today her tracheostomy site is clean. She denies shortness of breath. Her activity level is still minimal and that she will walk a couple of steps to the bedside commode. She is working with physical therapy. Vitals Vital Signs Date Time Temp Pulse Resp B/P (MAP) Pulse Ox O2 Delivery O2 Flow Rate FiO2 04/26/21 10:00 98.5 111 18 142/79 (100) 100 Nasal Cannula 2.0 98.5 ROS: No Nausea, No Chest Pain, No Abdominal Pain, No Increase Cough General: Alert, Oriented X4 Lungs: Crackles Cardiovascular: S1, S2 Abdomen: Soft, Non-tender Neuro Exam: Alert, Normal Speech Skin: Warm Labs Laboratory Tests Test 04/24/21 11:08 04/24/21 16:14 04/24/21 20:11 04/25/21 05:45 Glucose (Fingerstick) 293 mg/dL (70-99) 239 mg/dL (70-99) 401 mg/dL (70-99) White Blood Count 13.6 x10^3/uL (4.0-11.0) Red Blood Count 2.96 x10^6/uL (3.50-5.40) Hemoglobin 8.4 g/dL (12.0-15.5) Hematocrit 25.2 % (36.0-47.0) Mean Corpuscular Volume 85 fL (79-100) Mean Corpuscular Hemoglobin 28 pg (25-35) Mean Corpuscular Hemoglobin Concent 34 g/dL (31-37) Red Cell Distribution Width 14.4 % (11.5-14.5) Platelet Count 258 x10^3/uL (140-400) Neutrophils (%) (Auto) 67 % (31-73) Lymphocytes (%) (Auto) 18 % (24-48) Monocytes (%) (Auto) 10 % (0-9) Eosinophils (%) (Auto) 3 % (0-3) Basophils (%) (Auto) 1 % (0-3) Neutrophils # (Auto) 9.1 x10^3/uL (1.8-7.7) Lymphocytes # (Auto) 2.5 x10^3/uL (1.0-4.8) Monocytes # (Auto) 1.4 x10^3/uL (0.0-1.1) Eosinophils # (Auto) 0.5 x10^3/uL (0.0-0.7) Basophils # (Auto) 0.1 x10^3/uL (0.0-0.2) Sodium Level 134 mmol/L (136-145) Potassium Level 4.1 mmol/L (3.5-5.1) Chloride Level 96 mmol/L (98-107) Carbon Dioxide Level 33 mmol/L (21-32) Anion Gap 5 (6-14) Blood Urea Nitrogen 24 mg/dL (7-20) Creatinine 1.9 mg/dL (0.6-1.0) Estimated GFR (Cockcroft-Gault) 28.6 Glucose Level 147 mg/dL (70-99) Calcium Level 9.3 mg/dL (8.5-10.1) Test 04/25/21 07:07 04/25/21 11:11 04/25/21 16:33 04/25/21 20:43 Glucose (Fingerstick) 153 mg/dL (70-99) 253 mg/dL (70-99) 309 mg/dL (70-99) 215 mg/dL (70-99) Test 04/26/21 06:00 04/26/21 07:04 White Blood Count 11.7 x10^3/uL (4.0-11.0) Red Blood Count 2.90 x10^6/uL (3.50-5.40) Hemoglobin 8.3 g/dL (12.0-15.5) Hematocrit 24.7 % (36.0-47.0) Mean Corpuscular Volume 85 fL (79-100) Mean Corpuscular Hemoglobin 29 pg (25-35) Mean Corpuscular Hemoglobin Concent 34 g/dL (31-37) Red Cell Distribution Width 14.7 % (11.5-14.5) Platelet Count 249 x10^3/uL (140-400) Neutrophils (%) (Auto) 64 % (31-73) Lymphocytes (%) (Auto) 22 % (24-48) Monocytes (%) (Auto) 9 % (0-9) Eosinophils (%) (Auto) 4 % (0-3) Basophils (%) (Auto) 1 % (0-3) Neutrophils # (Auto) 7.5 x10^3/uL (1.8-7.7) Lymphocytes # (Auto) 2.5 x10^3/uL (1.0-4.8) Monocytes # (Auto) 1.1 x10^3/uL (0.0-1.1) Eosinophils # (Auto) 0.5 x10^3/uL (0.0-0.7) Basophils # (Auto) 0.1 x10^3/uL (0.0-0.2) Sodium Level 134 mmol/L (136-145) Potassium Level 4.5 mmol/L (3.5-5.1) Chloride Level 97 mmol/L (98-107) Carbon Dioxide Level 31 mmol/L (21-32) Anion Gap 6 (6-14) Blood Urea Nitrogen 24 mg/dL (7-20) Creatinine 2.0 mg/dL (0.6-1.0) Estimated GFR (Cockcroft-Gault) 26.9 Glucose Level 162 mg/dL (70-99) Calcium Level 9.1 mg/dL (8.5-10.1) Glucose (Fingerstick) 156 mg/dL (70-99) Laboratory Tests Test 04/25/21 11:11 04/25/21 16:33 04/25/21 20:43 04/26/21 06:00 Glucose (Fingerstick) 253 mg/dL (70-99) 309 mg/dL (70-99) 215 mg/dL (70-99) White Blood Count 11.7 x10^3/uL (4.0-11.0) Red Blood Count 2.90 x10^6/uL (3.50-5.40) Hemoglobin 8.3 g/dL (12.0-15.5) Hematocrit 24.7 % (36.0-47.0) Mean Corpuscular Volume 85 fL (79-100) Mean Corpuscular Hemoglobin 29 pg (25-35) Mean Corpuscular Hemoglobin Concent 34 g/dL (31-37) Red Cell Distribution Width 14.7 % (11.5-14.5) Platelet Count 249 x10^3/uL (140-400) Neutrophils (%) (Auto) 64 % (31-73) Lymphocytes (%) (Auto) 22 % (24-48) Monocytes (%) (Auto) 9 % (0-9) Eosinophils (%) (Auto) 4 % (0-3) Basophils (%) (Auto) 1 % (0-3) Neutrophils # (Auto) 7.5 x10^3/uL (1.8-7.7) Lymphocytes # (Auto) 2.5 x10^3/uL (1.0-4.8) Monocytes # (Auto) 1.1 x10^3/uL (0.0-1.1) Eosinophils # (Auto) 0.5 x10^3/uL (0.0-0.7) Basophils # (Auto) 0.1 x10^3/uL (0.0-0.2) Sodium Level 134 mmol/L (136-145) Potassium Level 4.5 mmol/L (3.5-5.1) Chloride Level 97 mmol/L (98-107) Carbon Dioxide Level 31 mmol/L (21-32) Anion Gap 6 (6-14) Blood Urea Nitrogen 24 mg/dL (7-20) Creatinine 2.0 mg/dL (0.6-1.0) Estimated GFR (Cockcroft-Gault) 26.9 Glucose Level 162 mg/dL (70-99) Calcium Level 9.1 mg/dL (8.5-10.1) Test 04/26/21 07:04 Glucose (Fingerstick) 156 mg/dL (70-99) Medications Active Scripts Medications Dose Route/Sig Max Daily Dose Days Date Category Novolog Flexpen (Insulin Aspart) 100 Unit/1 Ml Insuln.pen 3-7 SQ TIDACHC 02/07/21 Reported Lisinopril 5 Mg Tablet 1 Tab PO DAILY 02/07/21 Reported Lantus Solostar (Insulin Glargine,Hum.rec.anlog) 100 Unit/1 Ml Insuln.pen 5 Unit SQ QHS 04/09/15 Reported Atorvastatin Calcium 40 Mg Tablet 40 Mg PO HS 04/09/15 Reported Impression . IMPRESSION: 1. Acute hypoxic respiratory failure secondary to COVID-19 viral pneumonia/acute lung injury and early acute respiratory distress syndrome. S/P intubation 02/17/21. Status post tracheostomy. Decannulated 04/24, slow improvement 2. Nonsmoker. 3. Abnormal chest x-ray consistent with COVID-19 viral pneumonia. 4. Diabetic ketoacidosis--resolved 5. Underlying obesity contributing to hypoxia as well. 6. BOB . hemodialysis started 03/07 7. Fever, 30 ID 8. Abnormal chest x-ray with diffuse interstitial infiltrates compatible with viral pneumonia 9. [place] in the sputum is a contamination 10. Septic shoc 11. s/p lap G-tube 03/27 12. Delirium Plan . 04/26 Continue oxygen recommend increasing activity as tolerated -- discussed with patient and nurse Updated 04/24 I decannulated patient, no respiratory distress no stridor I walked back in 20 minutes later she was eating not having any respiratory distress Continue current support We will see as needed updated 04/21 Discussed with RT will change to 6 Shiley I occluded her current trach tube, patient was having difficulty breathing Will change to a 6 Shiley, smaller trach tube, hopefully she will be able to tolerate capping updated 04/20 Continue current care We will discussed with RT Trach shield for now updated 04/17 Patient asleep I did not wake her up Continue current support On visual inspection no respiratory distress was noted CRISTY LOOMIS MD Apr 26, 2021 10:57
--- NOTE | 2021-04-26 12:36 | PDOC ---
DATE OF SERVICE DATE: 04/26/21 TIME: 12:34 SUBJECTIVE ROS No complaints OBJECTIVE Vital Signs Vital Signs Date Time Temp Pulse Resp B/P (MAP) Pulse Ox O2 Delivery O2 Flow Rate FiO2 04/26/21 10:00 98.5 111 18 142/79 (100) 100 Nasal Cannula 2.0 98.5 I & 0 Intake and Output 04/26/21 06:59 Intake Total 0 ml Output Total 5600 ml Balance -5600 ml Intake Oral 0 ml Output Urine Total 5600 ml # Bowel Movements 1 PHYSICAL EXAM Physical Exam GENERAL: NAD , HEENT: Anicteric. . OM moist Neck supple LUNGS: decreased at bases HEART: S1, S2. No murmurs. ABDOMEN: Obese, soft. Bowel sounds present. EXTREMITIES: no cyanosis. DIAGNOSIS/ASSESSMENT Assessment & Plan BOB-ATN- Resolved, probably her baseline renal function now E-Lytes, Resp status stable. Supportive care, avoid nephrotoxins, HypoNatremia - mild , stable DM 2 COVID 19 Pneumonia POA - Unvaccinated Acute Resp Failure- requuired intubation/Trach . Decannulation on 04/24 HTN Anemia -avoid DOYLE 2/2 to Thrombogenic state Family History of ESRD - Per at bedside- Pt's Mom was on dialysis and sister is on Dialysis COMMENT/RELEVANT DATA Meds Current Medications Medications (Trade) Dose Ordered Sig/Pepe Start Time Stop Time Status Last Admin Dose Admin Acetaminophen (Tylenol Supp) 650 mg PRN Q6HRS PRN 02/08/21 01:45 02/17/21 10:45 DC Acetaminophen (Tylenol) 500 mg 1X PRN PRN 03/17/21 13:30 03/18/21 13:29 DC Acetaminophen/ Hydrocodone Bitart (Lortab 10/325) 1 tab PRN Q6HRS PRN 04/26/21 10:30 Acetaminophen/ Hydrocodone Bitart (Lortab 7.5/325) 1 tab PRN Q6HRS PRN 04/26/21 10:30 Albumin Human 200 ml @ 200 mls/hr 1X PRN PRN 04/06/21 08:45 04/06/21 14:44 DC 04/06/21 10:43 200 MLS/HR Albuterol Sulfate (Ventolin Hfa) 60 puff STK-MED ONCE 03/17/21 11:29 03/17/21 11:29 DC Albuterol Sulfate (Ventolin Neb Soln) 2.5 mg PRN Q4HRS PRN 04/19/21 13:00 04/21/21 05:30 2.5 MG Albuterol/ Ipratropium (Duoneb) 3 ml RTQID 04/15/21 10:00 04/25/21 11:31 DC 04/25/21 11:24 3 ML Alteplase, Recombinant (Cathflo For Central Catheter Clearance) 1 mg 1X ONCE 02/27/21 14:30 02/27/21 14:36 DC 02/27/21 15:19 1 MG Alteplase, Recombinant (Cathflo) 2 mg 1X ONCE 02/27/21 11:00 02/27/21 11:01 DC 02/27/21 11:20 2 MG Amlodipine Besylate (Norvasc) 10 mg DAILY 03/31/21 09:00 04/20/21 11:15 DC 04/20/21 08:36 10 MG Atorvastatin Calcium (Lipitor) 40 mg HS 02/08/21 21:00 04/25/21 21:47 40 MG Atropine Sulfate (ATROPINE 0.5mg SYRINGE) 0.5 mg PRN Q5MIN PRN 02/16/21 12:00 Azithromycin 250 mg/Sodium Chloride 250 ml @ 250 mls/hr Q24H 02/14/21 13:30 02/18/21 14:29 DC 02/18/21 11:51 250 MLS/HR Barium Sulfate (Varibar Thin Liquid Apple) 148 gm 1X ONCE 04/17/21 10:00 04/17/21 10:02 DC 04/17/21 11:30 148 GM Benzonatate (Tessalon Perle) 100 mg [id number] 02/10/21 23:30 02/17/21 10:45 DC 02/16/21 22:07 100 MG Bupivacaine HCl/ Epinephrine Bitart (Sensorcain-Epi 0.5% Kit) 30 ml STK-MED ONCE 03/27/21 10:05 03/27/21 10:05 DC 03/27/21 13:12 16 ML Bupivacaine HCl/ Epinephrine Bitart (Sensorcain-Epi 0.5%-1:[id number] Mpf) 30 ml STK-MED ONCE 03/17/21 10:47 03/17/21 10:47 DC Carvedilol (Coreg) 6.25 mg [id number] 02/08/21 20:30 02/23/21 15:50 DC 02/23/21 08:06 6.25 MG Cefazolin Sodium/ Dextrose (Ancef 2gm Premix) 2 gm STK-MED ONCE 03/23/21 13:00 03/24/21 11:58 DC Ceftriaxone Sodium (Rocephin) 1 gm Q24H 02/14/21 13:00 02/23/21 07:34 DC 02/22/21 12:42 1 GM Cellulose (Surgicel Fibrillar 1x2) 1 each STK-MED ONCE 03/17/21 10:47 03/17/21 10:47 DC 03/17/21 11:56 1 EACH Daptomycin 480 mg/ Sodium Chloride 50 ml @ 100 mls/hr QMWF 03/23/21 16:00 03/26/21 10:29 DC 03/25/21 19:52 100 MLS/HR Daptomycin 500 mg/ Sodium Chloride 50 ml @ 100 mls/hr Q48H 04/02/21 10:00 04/09/21 10:52 DC 04/08/21 13:14 100 MLS/HR Dexamethasone Sodium Phosphate (Decadron) 2 mg 1X ONCE 02/27/21 09:00 02/26/21 07:15 DC Dexmedetomidine HCl 400 mcg/ Sodium Chloride 100 ml @ 0 mls/hr CONT PRN 02/27/21 09:45 04/16/21 15:07 DC 04/15/21 05:36 0.2 MLS/HR Dextrose (Dextrose 50%-Water Syringe) 12.5 gm PRN Q15MIN PRN 03/01/21 13:00 03/01/21 12:55 12.5 GM Diphenhydramine HCl (Benadryl Oral Elixir) 25 mg PRN Q6HRS PRN 04/20/21 09:45 04/25/21 21:47 25 MG Diphenhydramine HCl (Benadryl) 25 mg 1X PRN PRN 03/17/21 13:30 03/18/21 13:29 DC Docusate Sodium (Colace Solution) 100 mg BID 02/23/21 12:00 04/26/21 08:30 100 MG Docusate Sodium (Colace) 100 mg PRN DAILY PRN 02/07/21 08:45 02/23/21 10:47 DC Enalaprilat (Vasotec Inj) 0.625 mg Q6HRS 02/08/21 16:15 02/09/21 16:01 DC 02/09/21 13:42 0.625 MG Enoxaparin Sodium (Lovenox 30mg Syringe) 30 mg Q24H 03/08/21 09:00 03/12/21 15:38 DC 03/12/21 09:04 30 MG Enoxaparin Sodium (Lovenox 40mg Syringe) 40 mg BID 02/09/21 09:00 03/08/21 13:56 DC 03/08/21 08:26 40 MG Enoxaparin Sodium (Lovenox Per Pharmacy Prophylaxis Dosing) 1 each PRN DAILY PRN 02/09/21 06:45 03/12/21 15:38 DC Ephedrine Sulfate (ePHEDrine PF IN SALINE SYRINGE) 50 mg STK-MED ONCE 03/17/21 10:56 03/17/21 10:56 DC Famotidine (Pepcid Vial) 20 mg DAILY 03/10/21 09:00 04/26/21 08:31 20 MG Fentanyl (Duragesic 25mcg/ Hr Patch) 1 patch Q3DAYS 04/13/21 13:00 04/25/21 10:06 1 PATCH Fentanyl Citrate (Fentanyl 2ml Vial) 100 mcg 1X ONCE 04/13/21 14:00 04/13/21 14:03 DC 04/13/21 13:54 50 MCG Fluconazole/ Sodium Chloride 100 ml @ 100 mls/hr Q24H 03/07/21 09:00 03/17/21 08:03 DC 03/16/21 08:29 100 MLS/HR Fluoxetine HCl (PROzac) 20 mg 1X ONCE 04/10/21 11:15 04/10/21 11:34 DC Furosemide (Lasix) 40 mg 1X ONCE 03/29/21 15:00 03/29/21 15:02 DC 03/29/21 15:22 40 MG Glycerin/ Hypromellose/ Polyethylene (Artificial Tears) 1 drop PRN Q1HR PRN 02/17/21 10:00 04/05/21 08:02 1 DROP Glycopyrrolate (Robinul) 1 mg STK-MED ONCE 03/27/21 14:07 03/27/21 14:07 DC Guaifenesin (Robitussin Dm) 10 ml PRN Q6HRS PRN 02/10/21 23:30 04/23/21 22:12 10 ML Haloperidol Lactate (Haldol Inj) 5 mg Q8HRS 04/01/21 11:30 04/07/21 14:58 DC 04/07/21 05:51 5 MG Heparin Sodium (Porcine) (Heparin Sodium) 5,000 unit Q8HRS 03/13/21 06:00 04/26/21 05:57 5,000 UNIT Hydralazine HCl (Apresoline Inj) 10 mg PRN Q4HRS PRN 02/11/21 12:15 04/22/21 22:29 10 MG Hydromorphone HCl (Dilaudid) 0.5 mg PRN Q10MIN PRN 03/27/21 06:00 03/28/21 05:59 DC Info (CONTRAST GIVEN -- Rx MONITORING) 1 each PRN DAILY PRN 04/13/21 13:45 04/15/21 13:44 DC Info (PHARMACY MONITORING -- do not chart) 1 each PRN DAILY PRN 04/10/21 13:30 Cancel Insulin Glargine (Lantus Syringe) 20 unit BID 04/24/21 21:00 04/26/21 08:58 20 UNIT Insulin Human Lispro (HumaLOG) 15 units 1X ONCE 04/24/21 21:15 04/24/21 21:16 DC 04/24/21 22:14 15 UNITS Insulin Human Regular 100 ml @ 10 mls/hr 1X ONCE 02/07/21 06:30 02/07/21 16:54 DC 02/07/21 09:31 6.5 MLS/HR Insulin Human Regular 100 unit/ Sodium Chloride 101 ml @ 0 mls/hr CONT PRN PRN 02/07/21 06:00 02/07/21 16:54 DC Iohexol (Omnipaque 240 Mg/ml) 50 ml 1X ONCE 04/13/21 13:45 04/13/21 13:46 DC 04/13/21 13:45 28 ML Labetalol HCl (Normodyne Iv Push) 10 mg PRN Q2HR PRN 02/08/21 00:45 04/16/21 19:53 10 MG Lactobacillus Rhamnosus (Culturelle) 1 cap BID 02/16/21 21:00 02/17/21 10:45 DC 02/16/21 22:02 1 CAP Lidocaine HCl (Buffered Lidocaine 1%) 3 ml STK-MED ONCE 03/07/21 13:25 03/07/21 13:25 DC Linezolid (Zyvox) 600 mg BID 03/05/21 09:00 03/12/21 07:00 DC 03/11/21 20:33 600 MG Linezolid/Dextrose 300 ml @ 300 mls/hr Q12HR 04/09/21 12:00 04/11/21 12:54 DC 04/11/21 09:59 300 MLS/HR Lisinopril (Prinivil) 20 mg DAILY 02/17/21 09:00 03/09/21 10:43 DC 02/27/21 09:10 20 MG Lorazepam (Ativan Inj) 1 mg PRN Q2HR PRN 04/10/21 11:15 04/25/21 21:48 1 MG Magnesium Sulfate 50 ml @ 25 mls/hr 1X ONCE 04/17/21 18:00 04/17/21 19:59 DC 04/17/21 17:31 25 MLS/HR Meropenem 1 gm/ Sodium Chloride 100 ml @ 200 mls/hr Q24H 03/18/21 17:00 04/10/21 11:57 DC 04/09/21 17:00 200 MLS/HR Methylprednisolone Sodium Succinate (SOLU-Medrol 125MG VIAL) 80 mg Q8HRS 02/25/21 09:00 02/26/21 07:09 DC 02/26/21 05:52 80 MG Metoclopramide HCl (Reglan Vial) 10 mg PRN Q6HRS PRN 02/08/21 00:45 02/12/21 15:51 10 MG Micafungin Sodium 100 mg/Dextrose 100 ml @ 100 mls/hr Q24H 03/21/21 18:00 03/25/21 10:27 DC 03/24/21 16:36 100 MLS/HR Midazolam HCl (Versed) 2 mg 1X ONCE 04/13/21 14:00 04/13/21 14:03 DC 04/13/21 13:54 2 MG Morphine Sulfate (Morphine Sulfate) 1 mg PRN Q10MIN PRN 03/27/21 06:00 03/28/21 05:59 DC Multi-Ingred Cream/Lotion/Oil/ Oint (Artificial Tears Eye Ointment) 1 reji PRN Q1HR PRN 03/17/21 17:30 03/20/21 15:55 1 REJI Multivitamins/ Minerals Therapeutic (Centrum Multivit-Mineral Liq) 5 ml DAILY 03/14/21 09:00 04/26/21 08:32 5 ML Naloxone HCl (Narcan) 0.4 mg PRN Q2MIN PRN 03/27/21 14:30 Neostigmine Presidio (Neostigmine Methylsulfate) 5 mg STK-MED ONCE 03/27/21 14:06 03/27/21 14:07 DC Norepinephrine Bitartrate 8 mg/ Dextrose 258 ml @ 21.711 mls/ hr CONT PRN 03/06/21 13:45 04/15/21 14:14 DC 03/19/21 18:45 23.3 MLS/HR Nystatin (Nystop) 1 reji BID 03/02/21 21:00 04/25/21 21:56 1 REJI Ondansetron HCl (Zofran Odt) 4 mg 1X ONCE 02/06/21 23:30 02/06/21 23:31 DC 02/06/21 23:57 4 MG Ondansetron HCl (Zofran) 4 mg STK-MED ONCE 04/13/21 13:33 04/13/21 13:33 DC Oxycodone/ Acetaminophen (Percocet 5/325) 2 tab PRN Q4HRS PRN 04/19/21 11:45 Phenylephrine HCl (PHENYLEPHRINE in 0.9% NACL PF) 1 mg STK-MED ONCE 03/27/21 13:46 03/27/21 13:46 DC Piperacillin Sod/ Tazobactam Sod (Zosyn Per Pharmacy) 1 each PRN DAILY PRN 02/23/21 07:45 03/17/21 10:04 DC Piperacillin Sod/ Tazobactam Sod 2.25 gm/Sodium Chloride 50 ml @ 100 mls/hr Q8HRS 03/07/21 14:00 03/17/21 08:03 DC 03/17/21 05:58 100 MLS/HR Piperacillin Sod/ Tazobactam Sod 3.375 gm/Sodium Chloride 50 ml @ 100 mls/hr Q6HRS 03/14/21 18:00 Cancel Piperacillin Sod/ Tazobactam Sod 4.5 gm/Sodium Chloride 100 ml @ 200 mls/hr Q6HRS 02/23/21 08:00 03/07/21 08:18 DC 03/07/21 06:12 200 MLS/HR Potassium Bicarbonate (Potassium Effervescent Tablet) 40 meq 1X ONCE 04/16/21 09:00 04/16/21 09:04 DC 04/16/21 09:22 40 MEQ Potassium Chloride/Water 100 ml @ 50 mls/hr Q2HR 04/17/21 18:00 04/17/21 21:59 DC 04/17/21 21:55 50 MLS/HR Potassium Chloride (Klor-Con) 40 meq 1X ONCE 02/13/21 12:00 02/13/21 12:01 DC 02/13/21 13:21 40 MEQ Prochlorperazine Edisylate (Compazine) 5 mg PACU PRN PRN 03/27/21 06:00 03/28/21 05:59 DC Propofol (Diprivan) 200 mg STK-MED ONCE 03/27/21 12:02 03/27/21 12:03 DC Remdesivir 100 mg/ Sodium Chloride 230 ml @ 460 mls/hr Q24H 02/15/21 12:00 02/18/21 12:29 DC 02/18/21 11:52 460 MLS/HR Remdesivir 200 mg/ Sodium Chloride 210 ml @ 210 mls/hr 1X ONCE 02/11/21 13:00 02/12/21 11:55 DC 02/11/21 14:33 210 MLS/HR Ringer's Solution 1,000 ml @ 30 mls/hr Q24H 03/27/21 06:00 03/27/21 17:59 DC Rocuronium Presidio (Zemuron) 50 mg STK-MED ONCE 03/27/21 13:16 03/27/21 13:17 DC Sennosides (Senna) 17.2 mg PRN BID PRN 02/07/21 08:45 02/22/21 08:29 17.2 MG Sevoflurane (Ultane) 60 ml STK-MED ONCE 03/27/21 14:19 03/27/21 14:20 DC Sodium Chloride 1,000 ml @ 125 mls/hr 1X ONCE 04/25/21 10:15 04/25/21 18:14 DC 04/25/21 10:15 125 MLS/HR Sodium Chloride (Normal Saline Flush) 3 ml QSHIFT PRN 03/27/21 14:30 Succinylcholine Chloride (Anectine) 200 mg STK-MED ONCE 02/17/21 10:00 02/25/21 08:40 DC Vancomycin HCl (Vanco Per Pharmacy) 1 each PRN DAILY PRN 03/04/21 18:30 03/05/21 08:59 DC 03/04/21 19:47 1 EACH Vancomycin HCl (Vancomycin Trough Level) 1 each 1X ONCE 03/06/21 07:00 03/06/21 07:01 Cancel Vancomycin HCl 1.5 gm/Sodium Chloride 500 ml @ 250 mls/hr Q12H 03/05/21 07:30 03/05/21 08:58 DC Vancomycin HCl 1 gm/Sodium Chloride 250 ml @ 250 mls/hr Q12H 03/04/21 20:00 UNV Vancomycin HCl 2 gm/Sodium Chloride 500 ml @ 250 mls/hr 1X ONCE 03/04/21 19:00 03/04/21 20:59 DC 03/04/21 19:26 250 MLS/HR Vecuronium [place] (Norcuron Bolus) 6 mg PRN Q2HRS PRN 03/06/21 14:30 04/16/21 14:59 DC 03/16/21 10:16 5 MG Vitamin A/Vitamin D (Vitamin A & D Ointment) 1 reji PRN Q1HR PRN 03/10/21 01:45 03/20/21 09:34 1 REJI Zolpidem Tartrate (Ambien) 5 mg PRN QHS PRN 04/10/21 11:15 Lab Laboratory Tests Test 04/25/21 16:33 04/25/21 20:43 04/26/21 06:00 04/26/21 07:04 Glucose (Fingerstick) 309 mg/dL (70-99) 215 mg/dL (70-99) 156 mg/dL (70-99) White Blood Count 11.7 x10^3/uL (4.0-11.0) Red Blood Count 2.90 x10^6/uL (3.50-5.40) Hemoglobin 8.3 g/dL (12.0-15.5) Hematocrit 24.7 % (36.0-47.0) Mean Corpuscular Volume 85 fL (79-100) Mean Corpuscular Hemoglobin 29 pg (25-35) Mean Corpuscular Hemoglobin Concent 34 g/dL (31-37) Red Cell Distribution Width 14.7 % (11.5-14.5) Platelet Count 249 x10^3/uL (140-400) Neutrophils (%) (Auto) 64 % (31-73) Lymphocytes (%) (Auto) 22 % (24-48) Monocytes (%) (Auto) 9 % (0-9) Eosinophils (%) (Auto) 4 % (0-3) Basophils (%) (Auto) 1 % (0-3) Neutrophils # (Auto) 7.5 x10^3/uL (1.8-7.7) Lymphocytes # (Auto) 2.5 x10^3/uL (1.0-4.8) Monocytes # (Auto) 1.1 x10^3/uL (0.0-1.1) Eosinophils # (Auto) 0.5 x10^3/uL (0.0-0.7) Basophils # (Auto) 0.1 x10^3/uL (0.0-0.2) Sodium Level 134 mmol/L (136-145) Potassium Level 4.5 mmol/L (3.5-5.1) Chloride Level 97 mmol/L (98-107) Carbon Dioxide Level 31 mmol/L (21-32) Anion Gap 6 (6-14) Blood Urea Nitrogen 24 mg/dL (7-20) Creatinine 2.0 mg/dL (0.6-1.0) Estimated GFR (Cockcroft-Gault) 26.9 Glucose Level 162 mg/dL (70-99) Calcium Level 9.1 mg/dL (8.5-10.1) Test 04/26/21 11:08 Glucose (Fingerstick) 258 mg/dL (70-99) Results All relevant outside records, renal labs, imaging studies, telemetry/EKG's were reviewed. Justicifation of Admission Dx: Justifications for Admission: Justification of Admission Dx: N/A GIGI CARMEN MD Apr 26, 2021 12:36
[2021-04-26 14:50] VITALS: BP 121/62
[2021-04-26 18:08] VITALS: BP 147/68
[2021-04-26] MEDS: ATORVASTATIN CALCIUM 40 MG TABLET. PO SCH (20:58)
[2021-04-26 23:19] VITALS: BP 140/73
[2021-04-27 03:16] VITALS: BP 161/77
[2021-04-27] MEDS: HEPARIN for SUB-Q USE 5,000 UNIT/ML VIAL. SQ SCH ×3 (05:07→21:53)
[2021-04-27 05:39] LABS: CALCIUM 9.2 mg/dL (8.5-10.1); CREATININE 1.7 mg/dL (0.6-1.0); GFR 32.5; POTASSIUM 4.2 mmol/L (3.5-5.1)
[2021-04-27 05:51] LABS: BASO # 0.1 x10^3/uL (0.0-0.2); BASO % 1 % (0-3); EOS # 0.4 x10^3/uL (0.0-0.7); EOS % 4 % (0-3); HEMOGLOBIN 9.4 g/dL (12.0-15.5); LYMPH % 22 % (24-48); MEAN CORPUSCULAR HEMOGLOBIN 29 pg (25-35); MEAN CORPUSCULAR HGB CONC 34 g/dL (31-37); MEAN CORPUSCULAR VOLUME 85 fL (79-100); MONO # 0.9 x10^3/uL (0.0-1.1); MONO % 10 % (0-9); NEUT % 64 % (31-73); PLATELET COUNT 245 x10^3/uL (140-400); RED BLOOD COUNT 3.31 x10^6/uL (3.50-5.40); RED CELL DISTRIBUTION WIDTH 14.3 % (11.5-14.5); WHITE BLOOD COUNT 9.4 x10^3/uL (4.0-11.0)
[2021-04-27 07:00] VITALS: BP 144/69
[2021-04-27] MEDS: MULTIVITAMINS,THERAPEUTIC 5 ML ORAL LIQUID. PEG SCH (08:50)
[2021-04-27] MEDS: FAMOTIDINE 20 MG/2 ML VIAL IVP SCH (08:51)
[2021-04-27] MEDS: NYSTATIN TOPICAL POWDER 15GM BOTTLE. TP SCH ×2 (08:51→21:55)
[2021-04-27] MEDS: DOCUSATE 100 MG/10 ML SOLUTION. PO SCH ×2 (08:51→21:52)
[2021-04-27] MEDS: INSULIN LISPRO 300 UNITS/3 ML VIAL. SQ SCH ×4 (09:04→21:54)
[2021-04-27] MEDS: INSULIN GLARGINE SYRINGE. SQ SCH ×2 (09:08→21:53)
--- NOTE | 2021-04-27 09:37 | PDOC ---
PULMONARY PROGRESS NOTES DATE: 04/27/21 TIME: 09:36 Subjective Patient not more short of air, nasal cannula oxygen 2 L Vitals Vital Signs Date Time Temp Pulse Resp B/P (MAP) Pulse Ox O2 Delivery O2 Flow Rate FiO2 04/27/21 09:20 97 Room Air 04/27/21 07:00 98.2 109 16 144/69 (94) 2.0 98.2 ROS: No Nausea, No Chest Pain, No Abdominal Pain, No Increase Cough General: Alert, Oriented X4 Lungs: Crackles Cardiovascular: S1, S2 Abdomen: Soft, Non-tender Neuro Exam: Alert, Normal Speech Skin: Warm Labs Laboratory Tests Test 04/25/21 11:11 04/25/21 16:33 04/25/21 20:43 04/26/21 06:00 Glucose (Fingerstick) 253 mg/dL (70-99) 309 mg/dL (70-99) 215 mg/dL (70-99) White Blood Count 11.7 x10^3/uL (4.0-11.0) Red Blood Count 2.90 x10^6/uL (3.50-5.40) Hemoglobin 8.3 g/dL (12.0-15.5) Hematocrit 24.7 % (36.0-47.0) Mean Corpuscular Volume 85 fL (79-100) Mean Corpuscular Hemoglobin 29 pg (25-35) Mean Corpuscular Hemoglobin Concent 34 g/dL (31-37) Red Cell Distribution Width 14.7 % (11.5-14.5) Platelet Count 249 x10^3/uL (140-400) Neutrophils (%) (Auto) 64 % (31-73) Lymphocytes (%) (Auto) 22 % (24-48) Monocytes (%) (Auto) 9 % (0-9) Eosinophils (%) (Auto) 4 % (0-3) Basophils (%) (Auto) 1 % (0-3) Neutrophils # (Auto) 7.5 x10^3/uL (1.8-7.7) Lymphocytes # (Auto) 2.5 x10^3/uL (1.0-4.8) Monocytes # (Auto) 1.1 x10^3/uL (0.0-1.1) Eosinophils # (Auto) 0.5 x10^3/uL (0.0-0.7) Basophils # (Auto) 0.1 x10^3/uL (0.0-0.2) Sodium Level 134 mmol/L (136-145) Potassium Level 4.5 mmol/L (3.5-5.1) Chloride Level 97 mmol/L (98-107) Carbon Dioxide Level 31 mmol/L (21-32) Anion Gap 6 (6-14) Blood Urea Nitrogen 24 mg/dL (7-20) Creatinine 2.0 mg/dL (0.6-1.0) Estimated GFR (Cockcroft-Gault) 26.9 Glucose Level 162 mg/dL (70-99) Calcium Level 9.1 mg/dL (8.5-10.1) Test 04/26/21 07:04 04/26/21 11:08 04/26/21 16:15 04/27/21 05:00 Glucose (Fingerstick) 156 mg/dL (70-99) 258 mg/dL (70-99) 227 mg/dL (70-99) White Blood Count 9.4 x10^3/uL (4.0-11.0) Red Blood Count 3.31 x10^6/uL (3.50-5.40) Hemoglobin 9.4 g/dL (12.0-15.5) Hematocrit 28.0 % (36.0-47.0) Mean Corpuscular Volume 85 fL (79-100) Mean Corpuscular Hemoglobin 29 pg (25-35) Mean Corpuscular Hemoglobin Concent 34 g/dL (31-37) Red Cell Distribution Width 14.3 % (11.5-14.5) Platelet Count 245 x10^3/uL (140-400) Neutrophils (%) (Auto) 64 % (31-73) Lymphocytes (%) (Auto) 22 % (24-48) Monocytes (%) (Auto) 10 % (0-9) Eosinophils (%) (Auto) 4 % (0-3) Basophils (%) (Auto) 1 % (0-3) Neutrophils # (Auto) 6.0 x10^3/uL (1.8-7.7) Lymphocytes # (Auto) 2.0 x10^3/uL (1.0-4.8) Monocytes # (Auto) 0.9 x10^3/uL (0.0-1.1) Eosinophils # (Auto) 0.4 x10^3/uL (0.0-0.7) Basophils # (Auto) 0.1 x10^3/uL (0.0-0.2) Sodium Level 133 mmol/L (136-145) Potassium Level 4.2 mmol/L (3.5-5.1) Chloride Level 97 mmol/L (98-107) Carbon Dioxide Level 31 mmol/L (21-32) Anion Gap 5 (6-14) Blood Urea Nitrogen 28 mg/dL (7-20) Creatinine 1.7 mg/dL (0.6-1.0) Estimated GFR (Cockcroft-Gault) 32.5 Glucose Level 178 mg/dL (70-99) Calcium Level 9.2 mg/dL (8.5-10.1) Test 04/27/21 08:07 Glucose (Fingerstick) 177 mg/dL (70-99) Laboratory Tests Test 04/26/21 11:08 04/26/21 16:15 04/27/21 05:00 04/27/21 08:07 Glucose (Fingerstick) 258 mg/dL (70-99) 227 mg/dL (70-99) 177 mg/dL (70-99) White Blood Count 9.4 x10^3/uL (4.0-11.0) Red Blood Count 3.31 x10^6/uL (3.50-5.40) Hemoglobin 9.4 g/dL (12.0-15.5) Hematocrit 28.0 % (36.0-47.0) Mean Corpuscular Volume 85 fL (79-100) Mean Corpuscular Hemoglobin 29 pg (25-35) Mean Corpuscular Hemoglobin Concent 34 g/dL (31-37) Red Cell Distribution Width 14.3 % (11.5-14.5) Platelet Count 245 x10^3/uL (140-400) Neutrophils (%) (Auto) 64 % (31-73) Lymphocytes (%) (Auto) 22 % (24-48) Monocytes (%) (Auto) 10 % (0-9) Eosinophils (%) (Auto) 4 % (0-3) Basophils (%) (Auto) 1 % (0-3) Neutrophils # (Auto) 6.0 x10^3/uL (1.8-7.7) Lymphocytes # (Auto) 2.0 x10^3/uL (1.0-4.8) Monocytes # (Auto) 0.9 x10^3/uL (0.0-1.1) Eosinophils # (Auto) 0.4 x10^3/uL (0.0-0.7) Basophils # (Auto) 0.1 x10^3/uL (0.0-0.2) Sodium Level 133 mmol/L (136-145) Potassium Level 4.2 mmol/L (3.5-5.1) Chloride Level 97 mmol/L (98-107) Carbon Dioxide Level 31 mmol/L (21-32) Anion Gap 5 (6-14) Blood Urea Nitrogen 28 mg/dL (7-20) Creatinine 1.7 mg/dL (0.6-1.0) Estimated GFR (Cockcroft-Gault) 32.5 Glucose Level 178 mg/dL (70-99) Calcium Level 9.2 mg/dL (8.5-10.1) Medications Active Scripts Medications Dose Route/Sig Max Daily Dose Days Date Category Novolog Flexpen (Insulin Aspart) 100 Unit/1 Ml Insuln.pen 3-7 SQ TIDACHC 02/07/21 Reported Lisinopril 5 Mg Tablet 1 Tab PO DAILY 02/07/21 Reported Lantus Solostar (Insulin Glargine,Hum.rec.anlog) 100 Unit/1 Ml Insuln.pen 5 Unit SQ QHS 04/09/15 Reported Atorvastatin Calcium 40 Mg Tablet 40 Mg PO HS 04/09/15 Reported Impression . IMPRESSION: 1. Acute hypoxic respiratory failure secondary to COVID-19 viral pneumonia/acute lung injury and early acute respiratory distress syndrome. S/P intubation 02/17/21. Status post tracheostomy. Decannulated 04/24, slow improvement 2. Nonsmoker. 3. Abnormal chest x-ray consistent with COVID-19 viral pneumonia. 4. Diabetic ketoacidosis--resolved 5. Underlying obesity contributing to hypoxia as well. 6. BOB . hemodialysis started 03/07 7. Fever, 30 ID 8. Abnormal chest x-ray with diffuse interstitial infiltrates compatible with viral pneumonia 9. [place] in the sputum is a contamination 10. Septic shoc 11. s/p lap G-tube 03/27 12. Delirium Plan . Updated 04/27 Patient doing well, will see as needed We will sign off please call if needed 04/26 Continue oxygen recommend increasing activity as tolerated -- discussed with patient and nurse MONTEZ OROPEZA MD Apr 27, 2021 09:37
--- NOTE | 2021-04-27 10:16 | PDOC ---
Date of Service: DATE: 04/27/21 TIME: 10:13 Subjective: Subjective: Vomited pills this morning "because there were air bubbles in my tube." Tolerated apple juice since. No abd pain. No vomiting over the weekend. Objective: Vital Signs: Vital Signs Date Time Temp Pulse Resp B/P (MAP) Pulse Ox O2 Delivery O2 Flow Rate FiO2 04/27/21 09:20 97 Room Air 04/27/21 07:00 98.2 109 16 144/69 (94) 2.0 98.2 Labs: Laboratory Tests Test 04/26/21 11:08 04/26/21 16:15 04/27/21 05:00 04/27/21 08:07 Glucose (Fingerstick) 258 mg/dL 227 mg/dL 177 mg/dL White Blood Count 9.4 x10^3/uL Red Blood Count 3.31 x10^6/uL Hemoglobin 9.4 g/dL Hematocrit 28.0 % Mean Corpuscular Volume 85 fL Mean Corpuscular Hemoglobin 29 pg Mean Corpuscular Hemoglobin Concent 34 g/dL Red Cell Distribution Width 14.3 % Platelet Count 245 x10^3/uL Neutrophils (%) (Auto) 64 % Lymphocytes (%) (Auto) 22 % Monocytes (%) (Auto) 10 % Eosinophils (%) (Auto) 4 % Basophils (%) (Auto) 1 % Neutrophils # (Auto) 6.0 x10^3/uL Lymphocytes # (Auto) 2.0 x10^3/uL Monocytes # (Auto) 0.9 x10^3/uL Eosinophils # (Auto) 0.4 x10^3/uL Basophils # (Auto) 0.1 x10^3/uL Sodium Level 133 mmol/L Potassium Level 4.2 mmol/L Chloride Level 97 mmol/L Carbon Dioxide Level 31 mmol/L Anion Gap 5 Blood Urea Nitrogen 28 mg/dL Creatinine 1.7 mg/dL Estimated GFR (Cockcroft-Gault) 32.5 Glucose Level 178 mg/dL Calcium Level 9.2 mg/dL PE: GEN: NAD HEENT: tracheostomy removed LUNGS: room air HEART: RRR ABD: G tube, soft, non-tender NEURO/PSYCH: A & O 3 A/P: COVID recovered Resp failure s/p trach (removed) and surgical G tube Vomiting - after pills this morning Chronic anemia, DM -- ?isolated incident after pills this morning - observe, continue acid-domestic travel consultant in some form. Justicifation of Admission Dx: Justifications for Admission: Justification of Admission Dx: N/A JANELLE MONTENEGRO Apr 27, 2021 10:16
--- NOTE | 2021-04-27 11:08 | PDOC ---
DATE OF SERVICE DATE: 04/27/21 TIME: 11:06 SUBJECTIVE ROS No complaints OBJECTIVE Vital Signs Vital Signs Date Time Temp Pulse Resp B/P (MAP) Pulse Ox O2 Delivery O2 Flow Rate FiO2 04/27/21 09:20 97 Room Air 04/27/21 08:00 2.0 04/27/21 07:00 98.2 109 16 144/69 (94) 98.2 I & 0 Intake and Output 04/27/21 07:00 Intake Total 1400 ml Output Total 2850 ml Balance -1450 ml Intake Oral 1400 ml Output Urine Total 2850 ml PHYSICAL EXAM Physical Exam GENERAL: NAD , HEENT: Anicteric. . OM moist Neck supple LUNGS: decreased at bases HEART: S1, S2. No murmurs. ABDOMEN: Obese, soft. Bowel sounds present. EXTREMITIES: no cyanosis. [place] + DIAGNOSIS/ASSESSMENT Assessment & Plan BOB-ATN- Resolved, probably her baseline renal function now E-Lytes, Resp status stable. Supportive care, avoid nephrotoxins, Kern since hospitalization (> 2 months), recommend dc [place], Voiding trial, r/o retention, Bladder scan prn . Lance RN . Dc per primary, fu with us as OP(Non urgent/ Routine) HypoNatremia - mild , stable DM 2 COVID 19 Pneumonia POA - Unvaccinated Acute Resp Failure- requuired intubation/Trach . Decannulation on 04/24 HTN Anemia -avoid DOYLE 2/2 to Thrombogenic state Family History of ESRD - Per at bedside- Pt's Mom was on dialysis and sister is on Dialysis COMMENT/RELEVANT DATA Meds Current Medications Medications (Trade) Dose Ordered Sig/Pepe Start Time Stop Time Status Last Admin Dose Admin Acetaminophen (Tylenol Supp) 650 mg PRN Q6HRS PRN 02/08/21 01:45 02/17/21 10:45 DC Acetaminophen (Tylenol) 500 mg 1X PRN PRN 03/17/21 13:30 03/18/21 13:29 DC Acetaminophen/ Hydrocodone Bitart (Lortab 10/325) 1 tab PRN Q6HRS PRN 04/26/21 10:30 Acetaminophen/ Hydrocodone Bitart (Lortab 7.5/325) 1 tab PRN Q6HRS PRN 04/26/21 10:30 Albumin Human 200 ml @ 200 mls/hr 1X PRN PRN 04/06/21 08:45 04/06/21 14:44 DC 04/06/21 10:43 200 MLS/HR Albuterol Sulfate (Ventolin Hfa) 60 puff STK-MED ONCE 03/17/21 11:29 03/17/21 11:29 DC Albuterol Sulfate (Ventolin Neb Soln) 2.5 mg PRN Q4HRS PRN 04/19/21 13:00 04/21/21 05:30 2.5 MG Albuterol/ Ipratropium (Duoneb) 3 ml RTQID 04/15/21 10:00 04/25/21 11:31 DC 04/25/21 11:24 3 ML Alteplase, Recombinant (Cathflo For Central Catheter Clearance) 1 mg 1X ONCE 02/27/21 14:30 02/27/21 14:36 DC 02/27/21 15:19 1 MG Alteplase, Recombinant (Cathflo) 2 mg 1X ONCE 02/27/21 11:00 02/27/21 11:01 DC 02/27/21 11:20 2 MG Amlodipine Besylate (Norvasc) 10 mg DAILY 03/31/21 09:00 04/20/21 11:15 DC 04/20/21 08:36 10 MG Atorvastatin Calcium (Lipitor) 40 mg HS 02/08/21 21:00 04/26/21 20:58 40 MG Atropine Sulfate (ATROPINE 0.5mg SYRINGE) 0.5 mg PRN Q5MIN PRN 02/16/21 12:00 Azithromycin 250 mg/Sodium Chloride 250 ml @ 250 mls/hr Q24H 02/14/21 13:30 02/18/21 14:29 DC 02/18/21 11:51 250 MLS/HR Barium Sulfate (Varibar Thin Liquid Apple) 148 gm 1X ONCE 04/17/21 10:00 04/17/21 10:02 DC 04/17/21 11:30 148 GM Benzonatate (Tessalon Perle) 100 mg [id number] 02/10/21 23:30 02/17/21 10:45 DC 02/16/21 22:07 100 MG Bupivacaine HCl/ Epinephrine Bitart (Sensorcain-Epi 0.5% Kit) 30 ml STK-MED ONCE 03/27/21 10:05 03/27/21 10:05 DC 03/27/21 13:12 16 ML Bupivacaine HCl/ Epinephrine Bitart (Sensorcain-Epi 0.5%-1:[id number] Mpf) 30 ml STK-MED ONCE 03/17/21 10:47 03/17/21 10:47 DC Carvedilol (Coreg) 6.25 mg [id number] 02/08/21 20:30 02/23/21 15:50 DC 02/23/21 08:06 6.25 MG Cefazolin Sodium/ Dextrose (Ancef 2gm Premix) 2 gm STK-MED ONCE 03/23/21 13:00 03/24/21 11:58 DC Ceftriaxone Sodium (Rocephin) 1 gm Q24H 02/14/21 13:00 02/23/21 07:34 DC 02/22/21 12:42 1 GM Cellulose (Surgicel Fibrillar 1x2) 1 each STK-MED ONCE 03/17/21 10:47 03/17/21 10:47 DC 03/17/21 11:56 1 EACH Daptomycin 480 mg/ Sodium Chloride 50 ml @ 100 mls/hr QMWF 03/23/21 16:00 03/26/21 10:29 DC 03/25/21 19:52 100 MLS/HR Daptomycin 500 mg/ Sodium Chloride 50 ml @ 100 mls/hr Q48H 04/02/21 10:00 04/09/21 10:52 DC 04/08/21 13:14 100 MLS/HR Dexamethasone Sodium Phosphate (Decadron) 2 mg 1X ONCE 02/27/21 09:00 02/26/21 07:15 DC Dexmedetomidine HCl 400 mcg/ Sodium Chloride 100 ml @ 0 mls/hr CONT PRN 02/27/21 09:45 04/16/21 15:07 DC 04/15/21 05:36 0.2 MLS/HR Dextrose (Dextrose 50%-Water Syringe) 12.5 gm PRN Q15MIN PRN 03/01/21 13:00 03/01/21 12:55 12.5 GM Diphenhydramine HCl (Benadryl Oral Elixir) 25 mg PRN Q6HRS PRN 04/20/21 09:45 04/25/21 21:47 25 MG Diphenhydramine HCl (Benadryl) 25 mg 1X PRN PRN 03/17/21 13:30 03/18/21 13:29 DC Docusate Sodium (Colace Solution) 100 mg BID 02/23/21 12:00 04/27/21 08:51 100 MG Docusate Sodium (Colace) 100 mg PRN DAILY PRN 02/07/21 08:45 02/23/21 10:47 DC Enalaprilat (Vasotec Inj) 0.625 mg Q6HRS 02/08/21 16:15 02/09/21 16:01 DC 02/09/21 13:42 0.625 MG Enoxaparin Sodium (Lovenox 30mg Syringe) 30 mg Q24H 03/08/21 09:00 03/12/21 15:38 DC 03/12/21 09:04 30 MG Enoxaparin Sodium (Lovenox 40mg Syringe) 40 mg BID 02/09/21 09:00 03/08/21 13:56 DC 03/08/21 08:26 40 MG Enoxaparin Sodium (Lovenox Per Pharmacy Prophylaxis Dosing) 1 each PRN DAILY PRN 02/09/21 06:45 03/12/21 15:38 DC Ephedrine Sulfate (ePHEDrine PF IN SALINE SYRINGE) 50 mg STK-MED ONCE 03/17/21 10:56 03/17/21 10:56 DC Famotidine (Pepcid Vial) 20 mg DAILY 03/10/21 09:00 04/27/21 08:51 20 MG Fentanyl (Duragesic 25mcg/ Hr Patch) 1 patch Q3DAYS 04/13/21 13:00 04/25/21 10:06 1 PATCH Fentanyl Citrate (Fentanyl 2ml Vial) 100 mcg 1X ONCE 04/13/21 14:00 04/13/21 14:03 DC 04/13/21 13:54 50 MCG Fluconazole/ Sodium Chloride 100 ml @ 100 mls/hr Q24H 03/07/21 09:00 03/17/21 08:03 DC 03/16/21 08:29 100 MLS/HR Fluoxetine HCl (PROzac) 20 mg 1X ONCE 04/10/21 11:15 04/10/21 11:34 DC Furosemide (Lasix) 40 mg 1X ONCE 03/29/21 15:00 03/29/21 15:02 DC 03/29/21 15:22 40 MG Glycerin/ Hypromellose/ Polyethylene (Artificial Tears) 1 drop PRN Q1HR PRN 02/17/21 10:00 04/05/21 08:02 1 DROP Glycopyrrolate (Robinul) 1 mg STK-MED ONCE 03/27/21 14:07 03/27/21 14:07 DC Guaifenesin (Robitussin Dm) 10 ml PRN Q6HRS PRN 02/10/21 23:30 04/23/21 22:12 10 ML Haloperidol Lactate (Haldol Inj) 5 mg Q8HRS 04/01/21 11:30 04/07/21 14:58 DC 04/07/21 05:51 5 MG Heparin Sodium (Porcine) (Heparin Sodium) 5,000 unit Q8HRS 03/13/21 06:00 04/27/21 05:07 5,000 UNIT Hydralazine HCl (Apresoline Inj) 10 mg PRN Q4HRS PRN 02/11/21 12:15 04/22/21 22:29 10 MG Hydromorphone HCl (Dilaudid) 0.5 mg PRN Q10MIN PRN 03/27/21 06:00 03/28/21 05:59 DC Info (CONTRAST GIVEN -- Rx MONITORING) 1 each PRN DAILY PRN 04/13/21 13:45 04/15/21 13:44 DC Info (PHARMACY MONITORING -- do not chart) 1 each PRN DAILY PRN 04/10/21 13:30 Cancel Insulin Glargine (Lantus Syringe) 20 unit BID 04/24/21 21:00 04/27/21 09:08 20 UNIT Insulin Human Lispro (HumaLOG) 15 units 1X ONCE 04/24/21 21:15 04/24/21 21:16 DC 04/24/21 22:14 15 UNITS Insulin Human Regular 100 ml @ 10 mls/hr 1X ONCE 02/07/21 06:30 02/07/21 16:54 DC 02/07/21 09:31 6.5 MLS/HR Insulin Human Regular 100 unit/ Sodium Chloride 101 ml @ 0 mls/hr CONT PRN PRN 02/07/21 06:00 02/07/21 16:54 DC Iohexol (Omnipaque 240 Mg/ml) 50 ml 1X ONCE 10/4/21 13:45 04/13/21 13:46 DC 04/13/21 13:45 28 ML Labetalol HCl (Normodyne Iv Push) 10 mg PRN Q2HR PRN 02/08/21 00:45 04/16/21 19:53 10 MG Lactobacillus Rhamnosus (Culturelle) 1 cap BID 02/16/21 21:00 02/17/21 10:45 DC 02/16/21 22:02 1 CAP Lidocaine HCl (Buffered Lidocaine 1%) 3 ml STK-MED ONCE 03/07/21 13:25 03/07/21 13:25 DC Linezolid (Zyvox) 600 mg BID 03/05/21 09:00 03/12/21 07:00 DC 03/11/21 20:33 600 MG Linezolid/Dextrose 300 ml @ 300 mls/hr Q12HR 04/09/21 12:00 04/11/21 12:54 DC 04/11/21 09:59 300 MLS/HR Lisinopril (Prinivil) 20 mg DAILY 02/17/21 09:00 03/09/21 10:43 DC 02/27/21 09:10 20 MG Lorazepam (Ativan Inj) 1 mg PRN Q2HR PRN 04/10/21 11:15 04/26/21 20:58 1 MG Magnesium Sulfate 50 ml @ 25 mls/hr 1X ONCE 04/17/21 18:00 04/17/21 19:59 DC 04/17/21 17:31 25 MLS/HR Meropenem 1 gm/ Sodium Chloride 100 ml @ 200 mls/hr Q24H 03/18/21 17:00 04/10/21 11:57 DC 04/09/21 17:00 200 MLS/HR Methylprednisolone Sodium Succinate (SOLU-Medrol 125MG VIAL) 80 mg Q8HRS 02/25/21 09:00 02/26/21 07:09 DC 02/26/21 05:52 80 MG Metoclopramide HCl (Reglan Vial) 10 mg PRN Q6HRS PRN 02/08/21 00:45 02/12/21 15:51 10 MG Micafungin Sodium 100 mg/Dextrose 100 ml @ 100 mls/hr Q24H 03/21/21 18:00 03/25/21 10:27 DC 03/24/21 16:36 100 MLS/HR Midazolam HCl (Versed) 2 mg 1X ONCE 04/13/21 14:00 04/13/21 14:03 DC 04/13/21 13:54 2 MG Morphine Sulfate (Morphine Sulfate) 1 mg PRN Q10MIN PRN 03/27/21 06:00 03/28/21 05:59 DC Multi-Ingred Cream/Lotion/Oil/ Oint (Artificial Tears Eye Ointment) 1 reji PRN Q1HR PRN 03/17/21 17:30 03/20/21 15:55 1 REJI Multivitamins/ Minerals Therapeutic (Centrum Multivit-Mineral Liq) 5 ml DAILY 03/14/21 09:00 04/27/21 08:50 5 ML Naloxone HCl (Narcan) 0.4 mg PRN Q2MIN PRN 03/27/21 14:30 Neostigmine [place] (Neostigmine Methylsulfate) 5 mg STK-MED ONCE 03/27/21 14:06 03/27/21 14:07 DC Norepinephrine Bitartrate 8 mg/ Dextrose 258 ml @ 21.711 mls/ hr CONT PRN 03/06/21 13:45 04/15/21 14:14 DC 03/19/21 18:45 23.3 MLS/HR Nystatin (Nystop) 1 reji BID 03/02/21 21:00 04/27/21 08:51 1 REJI Ondansetron HCl (Zofran Odt) 4 mg 1X ONCE 02/06/21 23:30 02/06/21 23:31 DC 02/06/21 23:57 4 MG Ondansetron HCl (Zofran) 4 mg STK-MED ONCE 04/13/21 13:33 04/13/21 13:33 DC Oxycodone/ Acetaminophen (Percocet 5/325) 2 tab PRN Q4HRS PRN 04/19/21 11:45 Phenylephrine HCl (PHENYLEPHRINE in 0.9% NACL PF) 1 mg STK-MED ONCE 03/27/21 13:46 03/27/21 13:46 DC Piperacillin Sod/ Tazobactam Sod (Zosyn Per Pharmacy) 1 each PRN DAILY PRN 02/23/21 07:45 03/17/21 10:04 DC Piperacillin Sod/ Tazobactam Sod 2.25 gm/Sodium Chloride 50 ml @ 100 mls/hr Q8HRS 03/07/21 14:00 03/17/21 08:03 DC 03/17/21 05:58 100 MLS/HR Piperacillin Sod/ Tazobactam Sod 3.375 gm/Sodium Chloride 50 ml @ 100 mls/hr Q6HRS 03/14/21 18:00 Cancel Piperacillin Sod/ Tazobactam Sod 4.5 gm/Sodium Chloride 100 ml @ 200 mls/hr Q6HRS 02/23/21 08:00 03/07/21 08:18 DC 03/07/21 06:12 200 MLS/HR Potassium Bicarbonate (Potassium Effervescent Tablet) 40 meq 1X ONCE 04/16/21 09:00 04/16/21 09:04 DC 04/16/21 09:22 40 MEQ Potassium Chloride/Water 100 ml @ 50 mls/hr Q2HR 04/17/21 18:00 04/17/21 21:59 DC 04/17/21 21:55 50 MLS/HR Potassium Chloride (Klor-Con) 40 meq 1X ONCE 02/13/21 12:00 02/13/21 12:01 DC 02/13/21 13:21 40 MEQ Prochlorperazine Edisylate (Compazine) 5 mg PACU PRN PRN 03/27/21 06:00 03/28/21 05:59 DC Propofol (Diprivan) 200 mg STK-MED ONCE 03/27/21 12:02 03/27/21 12:03 DC Remdesivir 100 mg/ Sodium Chloride 230 ml @ 460 mls/hr Q24H 02/15/21 12:00 02/18/21 12:29 DC 02/18/21 11:52 460 MLS/HR Remdesivir 200 mg/ Sodium Chloride 210 ml @ 210 mls/hr 1X ONCE 02/11/21 13:00 02/12/21 11:55 DC 02/11/21 14:33 210 MLS/HR Ringer's Solution 1,000 ml @ 30 mls/hr Q24H 03/27/21 06:00 03/27/21 17:59 DC Rocuronium [place] (Zemuron) 50 mg STK-MED ONCE 03/27/21 13:16 03/27/21 13:17 DC Sennosides (Senna) 17.2 mg PRN BID PRN 02/07/21 08:45 02/22/21 08:29 17.2 MG Sevoflurane (Ultane) 60 ml STK-MED ONCE 03/27/21 14:19 03/27/21 14:20 DC Sodium Chloride 1,000 ml @ 125 mls/hr 1X ONCE 04/25/21 10:15 04/25/21 18:14 DC 04/25/21 10:15 125 MLS/HR Sodium Chloride (Normal Saline Flush) 3 ml QSHIFT PRN 03/27/21 14:30 Succinylcholine Chloride (Anectine) 200 mg STK-MED ONCE 02/17/21 10:00 02/25/21 08:40 DC Vancomycin HCl (Vanco Per Pharmacy) 1 each PRN DAILY PRN 03/04/21 18:30 03/05/21 08:59 DC 03/04/21 19:47 1 EACH Vancomycin HCl (Vancomycin Trough Level) 1 each 1X ONCE 03/06/21 07:00 03/06/21 07:01 Cancel Vancomycin HCl 1.5 gm/Sodium Chloride 500 ml @ 250 mls/hr Q12H 03/05/21 07:30 03/05/21 08:58 DC Vancomycin HCl 1 gm/Sodium Chloride 250 ml @ 250 mls/hr Q12H 03/04/21 20:00 UNV Vancomycin HCl 2 gm/Sodium Chloride 500 ml @ 250 mls/hr 1X ONCE 03/04/21 19:00 03/04/21 20:59 DC 03/04/21 19:26 250 MLS/HR Vecuronium [place] (Norcuron Bolus) 6 mg PRN Q2HRS PRN 03/06/21 14:30 04/16/21 14:59 DC 03/16/21 10:16 5 MG Vitamin A/Vitamin D (Vitamin A & D Ointment) 1 reji PRN Q1HR PRN 03/10/21 01:45 03/20/21 09:34 1 REJI Zolpidem Tartrate (Ambien) 5 mg PRN QHS PRN 04/10/21 11:15 Lab Laboratory Tests Test 04/26/21 11:08 04/26/21 16:15 04/27/21 05:00 04/27/21 08:07 Glucose (Fingerstick) 258 mg/dL (70-99) 227 mg/dL (70-99) 177 mg/dL (70-99) White Blood Count 9.4 x10^3/uL (4.0-11.0) Red Blood Count 3.31 x10^6/uL (3.50-5.40) Hemoglobin 9.4 g/dL (12.0-15.5) Hematocrit 28.0 % (36.0-47.0) Mean Corpuscular Volume 85 fL (79-100) Mean Corpuscular Hemoglobin 29 pg (25-35) Mean Corpuscular Hemoglobin Concent 34 g/dL (31-37) Red Cell Distribution Width 14.3 % (11.5-14.5) Platelet Count 245 x10^3/uL (140-400) Neutrophils (%) (Auto) 64 % (31-73) Lymphocytes (%) (Auto) 22 % (24-48) Monocytes (%) (Auto) 10 % (0-9) Eosinophils (%) (Auto) 4 % (0-3) Basophils (%) (Auto) 1 % (0-3) Neutrophils # (Auto) 6.0 x10^3/uL (1.8-7.7) Lymphocytes # (Auto) 2.0 x10^3/uL (1.0-4.8) Monocytes # (Auto) 0.9 x10^3/uL (0.0-1.1) Eosinophils # (Auto) 0.4 x10^3/uL (0.0-0.7) Basophils # (Auto) 0.1 x10^3/uL (0.0-0.2) Sodium Level 133 mmol/L (136-145) Potassium Level 4.2 mmol/L (3.5-5.1) Chloride Level 97 mmol/L (98-107) Carbon Dioxide Level 31 mmol/L (21-32) Anion Gap 5 (6-14) Blood Urea Nitrogen 28 mg/dL (7-20) Creatinine 1.7 mg/dL (0.6-1.0) Estimated GFR (Cockcroft-Gault) 32.5 Glucose Level 178 mg/dL (70-99) Calcium Level 9.2 mg/dL (8.5-10.1) Results All relevant outside records, renal labs, imaging studies, telemetry/EKG's were reviewed. Justicifation of Admission Dx: Justifications for Admission: Justification of Admission Dx: N/A GIGI CARMEN MD Apr 27, 2021 11:08
[2021-04-27 11:20] VITALS: BP 137/74
--- NOTE | 2021-04-27 12:05 | NUR ---
SS following up with discharge planning. SS reviewed pt chart and discussed with pt RN. COVID19 recovered. Pt is currently requiring oxygen at two liters nasal canula. Kern in place. PO diet. PT/OT ordered. PT has not seen pt since 04/22/2021. Pt needing updated work with PT prior to discharging. Self pay. Med Assist following. Medicaid and Disability pending at this time. SS will continue to follow for discharge planning.
--- NOTE | 2021-04-27 12:35 | PDOC ---
[employer] PROGRESS NOTE Date of Service DOS: DATE: 04/27/21 TIME: 11:49 Chief Complaint Chief Complaint COVID-19 acute hypoxic respiratory failure DKA Hypotension Nausea Vomiting Combined metabolic and respiratory acidosis Acute electrolyte derangementhyponatremia, hypochloremia due to volume deple tion Hyperglycemia BOB due to ATN, requiring dialysis Erythrocytosis Candiduria Sacral decubitus ulcer S/P Trach on (03/17/21) Trach cultures positive for [place] albicans and now acinebacter ursungi History of Present Illness History of Present Illness 04/27: Patient seen and examined at bedside Afebrile Tachycardic (~115) On 2L nasal canula Had an episode of emesis x1, otherwise no acute overnight events noted. Per RN, patient is weak, needs further PT/OT evaluation. Patient states she is feeling overall improved. Encouraged PO intake with patient. Charts Reviewed Discussed case with RN and SW. 04/26: Afebrile, tachycardic, on 2 L nasal cannula. S/P decannulation. resident services director helping to provide patient with Medicaid/disability. Denies any further nausea or vomiting; believes her previous symptoms were secondary to the fluid at this hospital. Complains of sacral pain 01/17. Will provide hydrocodone options, given stated oxycodone allergy. 04/25: Afebrile, breathing on 2 L nasal cannula. Tachycardic. Decannulation yesterday. provided some documentation yesterday to help with Medicaid/disability applications. resident services director following. 04/24: Afebrile. Had decannulation today, per Dr. Perkins Currently breathing on 8 L nasal cannula. Per GI, if vomiting recurs will consider GES. 04/23: Slightly tachycardic this morning, on trach collar with 8 L. Still with some nausea and vomiting. Reconsult GI with some concerns of possible gastroparesis. Continue to monitor off antibiotics and monitor kidney function. 04/22: No acute events overnight, resting comfortably in bed. Creatinine 2.0 today, EGFR 26.9. She is self-pay and med assist following and waiting spouse to provide information to complete necessary applications. Continue to monitor kidney function and monitor off antibiotics. 04/21: Afebrile, resting comfortably in bed. Kidney function remained stable, creatinine 1.8, eGFR 30.4. I believe plans per nephrology are to remove HD line today. We will continue to monitor off antibiotics. resident services director working with to help with emergency Medicare. 04/20: Afebrile, breathing on 10 L trach shield. Had some itching today; ordered as needed Benadryl. Kidney function improved and appears to be stable. Per nephrology, possible HD line removal tomorrow. Per ID, will monitor off antibiotics. 04/19 Patient evaluated and examined at bedside. Sugars pretty high today will need more insulin adjustments. On trach collar when I saw her. Continue diet as tolerated. Discussed with at bedside. Diet as tolerated. Working towards discharge. Continue antibiotics. Will ask renal if temporary HD catheter is still needed if not can remove. 04/18 Patient evaluated examined at bedside. She was on trach collar. Continue regular diet as tolerated. Monitoring blood pressure. Working towards discharge. 04/17 Patient evaluated and examined at bedside. She is pretty alert today. Underwent video swallow study earlier and cleared for regular diet with thin liquids. Definite improvement for her. On trach collar when I saw her. Continue current treatments. Watch blood pressure. If she well keep up a consistent amount of p.o. intake may be able to stop tube feeds and PEG tube removal. But this is far down the line. 04/16 Patient seen examined at bedside. Transfer out of the ICU yesterday. Speech therapy to evaluate this morning. Improved notably since I last saw her in the ICU. Continue PEG feeds. Blood pressure treatment. Plan of care discussed with bedside RN. 04/15/2021 Patient seen and examined in the ICU She has clean dry intact tracheostomy with trach shield PEG feeds running at 30 cc an hour She really wants to drink water I told her that we are awaiting speech therapy to reevaluate her Chart reviewed Discussed with RN 04/14/2021 Patient seen and examined in the ICU She remains pleasantly confused Has a new PEG in place Discussed with physical therapy Discussed with RN Chart reviewed 04/13/2021 Patient seen and examined in the ICU She is pleasantly confused Sedated with Precedex and fentanyl I discussed with the speech therapist the patient has no laryngeal movement Now she is n.p.o. again Going for new PEG placement in interventional radiology hopefully later today Her trach is clean Chart reviewed Discussed with RN 04/12/2021 Patient seen and examined in the ICU Her is present today and seems to be good support for her Chart reviewed Discussed with RN Still sedated with Precedex and fentanyl but awake 04/11/2021 Patient seen and examined in the ICU She remains quite confused currently sedated Chart reviewed Discussed with RN Had some nausea vomiting last night Pulled out her PEG yesterday Currently on fentanyl and Precedex IV Zyvox hanging 04/10/2021 Patient seen and examined in the ICU She is pleasantly confused Has a trach shield in place Discussed with RN Chart reviewed We are adding in some as needed Ativan and scheduled Prozac Ms Borges is a 46 year old female who presented with nausea/vomiting since 7 AM 02/06/2021 in the morning. Patient stated that her recently tested positive for Covid. She states that he "coughed in my face because he thought it was funny." She reports subjective fevers and chills and nausea/vomiting. Denies sore throat, cough, shortness of breath. No chest pain. Does have some upper abdominal discomfort after vomiting, that she attributes to muscular strain. She was not vaccinated for Covid. 02/08: No acute events overnight. Patient seen and examined bedside and resting comfortably. Continues to complain of nausea not able to tolerate any diet at this time. Saturating 98% on room air. Patient's chart, labs, images were reviewed and discussed with RN 02/09: Afebrile, currently breathing on room air. Still with complaints of nausea and vomiting x3 today. States that she has history of similar symptoms that have been mildly improved with IV Dilaudid. 02/10: Patient febrile today with T-max 102.2 F. She still admits to nausea, denies any further vomiting. We will continue to provide supportive care and monitor for any recurrent fevers overnight. Patient continues to improve may discharge tomorrow to continue self-isolation. 02/11: Febrile overnight, T-max 102.3 F. She did become hypoxic overnight, currently breathing on 4 L nasal cannula. Also admits to associated vomiting or diarrhea overnight. Discussed with RN, will initiate remdesivir and closely monitor LFTs. IV Decadron, and prophylactic antibiotics. 02/12: Low-grade fever overnight, T-max 99.7. Currently breathing on room air. Will discontinue remdesivir, steroids, and antibiotics; will observe overnight. Still with complaints of vomiting x1 and diarrhea. We will continue to provide supportive care and hope to discharge in the next day or so. 02/13: Afebrile. Still complains of intermittent diarrhea. At the time of my evaluation she was breathing on 6 L nasal cannula; this is somewhat misleading as patient states that she did not feel short of breath but was placed on 6 L by nursing staff overnight. 02/14: Afebrile, currently breathing on 8 L nasal cannula. There has been some misleading documentation, chart oxygen this patient is requiring. Discussed with RN, will resume remdesivir to complete total of 5 days. Continue to monitor LFTs. Will add steroids, Rocephin, and azithromycin. 02/15: Afebrile. Became much more hypoxic overnight, requiring BiPAP. At the time of my evaluation she is still breathing on BiPAP. Consultation was placed to pulmonology. Had discussion with Dr. Myrick about initiating Tocilizumab 02/16: No acute events overnight. Patient becoming more hypoxic saturating 94% and requiring BiPAP. Patient will be transferred to the ICU at this time. For worsening clinical status. Discussed with pulmonary. Patient's chart, labs, images were reviewed and discussed with RN 02/17: Transferred to ICU yesterday afternoon. Seen and examined at bedside she remains on 100% FiO2 on BiPAP. Respirations do appear somewhat labored. Suspect intubation may be impending. We will closely monitor. Increase lisinopril to 20 today. 02/18: Patient required intubation yesterday afternoon. Saw and examined this morning. She is intubated and sedated. Increase insulin today. Covid protocol ordered. Wean as tolerated. Plan of care discussed with bedside nurse. 02/19: Bedside. She remains intubated and sedated. Continue Covid protocol. Wean oxygen sedation as tolerated. Pulmonary following. Plan of care discussed with bedside RN. 02/20: Patient seen and examined at bedside. She remains intubated and sedated. No major clinical changes. Continue current treatment. Pulmonary following. Plan of care discussed with bedside RN. 02/21: Patient seen and examined at bedside. Remains intubated and sedated date and admission clinical changes. Increase free water flushes today due to hypernatremia. Plan of care discussed with bedside nurse. 02/22: Patient seen and examined at bedside. O2 requirement actually improving, although remains intubated. Possible SBT in the coming days. Hypernatremia improving. Plan of care discussed bedside RN. 02/23: Patient remains in ICU on ventilator with FiO2 100%, PEEP 7. Repeat chest x-ray yesterday showed diffuse bilateral pulmonary opacities with no interval improvement. Will discontinue Rocephin and initiate Zosyn. We will continue IV steroids for a full 10-day course 02/24: Afebrile. On vent with FiO2 40%, PEEP 6. Her Coreg has been held due to persistent bradycardia. No documented history of systolic heart failure or previous echocardiogram. Will need to obtain echocardiogram prior to discharge. Continue IV steroids and antibiotics. 02/25: Afebrile. Remains ventilated with FiO2 45%, PEEP 6. Chest x-ray today showed slight improvement of the pulmonary infiltrates, no pneumothorax. Completed 10-day course of IV Decadron. Will initiate slow Solu-Medrol taper. Continue IV Zosyn. Continue supportive care. 02/26: Afebrile. On vent with FiO2 45%, PEEP 6. Completed 10 days of IV D ecadron. Will continue IV Zosyn. Continue supportive care. Critical care time 30 minutes spent reviewing charts, reviewing imaging, reviewing labs, discussion with RN. 02/27: Afebrile. On vent with FiO2 45%, PEEP 6. Completed 10 days of steroids and completed remdesivir. Continue with IV Zosyn. CPAP trial yesterday. Continue NG tube and supportive care. 02/28:. Patient remains on vent with FiO2 40%, PEEP 5. Afebrile. Completed steroids and remdesivir. Some noted hypoglycemia overnight, will de-escalate basal insulin. Continue IV Zosyn. Ventilator management per pulmonology. Continue NG tube and supportive care. 03/01: On vent with FiO2 40%, PEEP 5. Afebrile. Completed steroids and remdesivir. Blood glucose well controlled. Continue empiric antibiotics with Zosyn. Ventilator management per pulmonology. Continue NG tube and supportive care. 03/02: No acute events overnight. Patient hypotensive the morning due to oversedation. Will wean off sedation and keep antihypertensive medications on board. Currently saturating 100% on vent settings of 18/450/40/5. Will attempt spontaneous breathing trial today to see how patient does. 03/03: No acute events overnight. Patient saturating 98% on vent settings of 18/450/40/5. Will defer spontaneous breathing trials to pulmonary at this time. Patient's chart, labs, images were reviewed and discussed with RN 8: No acute events overnight. Patient saturating 9 9% on vent settings of 18/450/30/5. Patient currently is unable to tolerate weaning. Per pulmonary. Patient's chart, labs, images were reviewed and discussed with RN 03/05: No acute events overnight. Patient is saturating 97% on vent settings of 18/450/55/5. Her FiO2 needs to be increased due to abnormal ABG with 7.3 //24. Patient's chart, labs, images were reviewed and discussed with RN 8: No acute events overnight. Patient saturating 94% on vent settings of 18/ 450/55/5. Chest x-ray showing increase in pulmonary infiltrates. Wound care is consulted for decubitus ulcer patient's chart, labs, images were reviewed and discussed with RN 03/07: No acute events overnight. Patient saturating 94% on vent settings of 20 /450/70/8. Patient now heading into renal failure with her creatinine bumped up from 1.5-4.2. Decreased urine output. Plan for hemodialysis today and temporary catheter placement and nephrology is consulted. 03/08: No acute events overnight. Patient did have a nausea vomiting episode and tube feeds were held. KUB repeat shows NG tube still in the stomach. Will resume tube feeds at trickle and advance to goal today. Will start hemodialysis soon. 03/09: Seen on vent 20/450/60%/8. ABG 7.2 WBC 11.4, Hb 7.4, platelets 188, NA 131, K4.9, BUN 48, CR 51, glucose 199, phosphorus 7.9, mag 2.2, AST 265 ALT 219, albumin 1.1. Chest radiograph appears unchanged from prior. Dialysis x1 today 03/10: Afebrile. Seen on vent, 20/450/60/7 with ABG 7.3 . Tolerated dialysis well on 03/09. LFTs similar. 03/11: Afebrile. Seen on vent, sedated. Still requiring Levophed for BP support. WBC 16.7, Hb 8.1, NA 130, ABG 7.3 on 55% FiO2 PEEP 6. On Zosyn and Zyvox Diflucan. Dialysis today 03/12: Afebrile. Still requiring Levophed for BP support sedated with Versed febrile Precedex. WBC 16.1, Hb 8.5, platelets 185, NA 133. Trach plan tentati vely 03/17. O2 saturations 93% on 50% FiO2 PEEP 6. ABG 7. On Zosyn and Zyvox Diflucan. 03/13: Afebrile. Still on Levophed for BP support lightly sedated. 7. on 45% FiO2. Plan for dialysis today. On Zosyn and Zyvox Diflucan. More swollen today. 03/14: Afebrile. Weaning down off Levophed. WBC 14.9 NA 132. O2 saturations 92% on 45% FiO2 PEEP 5. Afebrile. O2 saturations 91% on FiO2 45% PEEP 6. Continued on Zosyn and Zyvox Diflucan. Tentative trach planned 03/17/2021 CC time 31 minutes 03/16/21: Patient seen and examined in ICU. Periorbital as well as upper and lower extremity edema noted. OG feed running at 30cc/hr. Still on vent on pressure control with a rate of 24 with 45% FiO2. Patient has rectal bag. Currently she has 98% O2 sat. Currently sedated with Dexmedetomidine, Propofol, Versed, and Fentanyl. Discussed with RN. Chart reviewed. 03/17/21: Patient was seen and examined in the ICU today. Periorbital edema as well as abdominal and mons pubis edema was noted. Patient still on vent on pressure control with Fi02 of 45% plus 6 PEEP. Patient had rectal bag. Currently sedated on Dexmedetomidine, Propofol, Versed, and Fentanyl. Discussed with RN. Chart reviewed. 03/18/21: Patient seen and examined in ICU. On vent via trach that was placed yesterday. Vent settings are Pressure Control of 40 with FiO2 of 45% and 6 PEEP. Trach clean and dry. Orbital swelling still present. Pupils are sluggish. Patient on TPN running at 30cc/hr. Kern to bedside and rectal bag in place. Current O2 sat at 94%. Sedated on Dexmedetomidine, Propofol, Versed, and Fentanyl. Discussed with RN. Chart reviewed. 03/19/21: Patient was seen and examined in the ICU today. Currently on vent via trach on pressure control of 42, rate of 24, FiO2 of 45%, and 6 PEEP. O2 sat is at 97% while patient is being examined. Trach is clean and dry. PICC line is in place on right arm. Periorbital swelling has decreased slightly since examined yesterday. Patient is sedated on Dexmedetomidine, Propofol, Versed, and Fentanyl. Discussed with RN. Chart reviewed. 03/20/21: Patient seen and examined in the ICU. Periorbital edema is slightly decreased since yesterday. O2 sat while being examined was 93%. NG tube in place and running at 30cc/hr. Patient on vent via trach on pressure control of 40 with FiO2 of 45 and rate of 24. Sedated on Dexmedetomidine, Propofol, Versed, and Fentanyl. PICC line in place. Kern to bedside. Rectal bag present. Discussed with RN. Chart reviewed. 03/21/21: Patient was seen and examined in the ICU today. She was semi-sedated.. She was on Dexmedetomidine and Fentanyl. We are holding the Propofol. Her eyes were periodically open but she was not making meaningful eye contact or tracking. On vent via trach with pressure control of 40 and FiO2 at 45. Rate was 24. PEEP was 5. Trach was clean and dry. While being examined, her O2 sat was 94%. Rectal bag and Kern to bedside in place. NG tube in place and feeding at 30cc/hr. IV fluids still running. Levophed has been stopped. Discussed with RN. Chart reviewed. 03/22/21: Patient was seen and examined in the ICU. She was semi-sedated on Propofol and Dexmedetomidine. Her eyes were open but she did not make meaningful eye contact. Her blood pressure was elevated (198/102) while being examined and she had just been given hydralazine to lower it. There are plans to place a PEG tube tomorrow. Currently on vent via trach on pressure control of 40 with FiO2 of 45%, 5 PEEP, and a rate of 24. Current O2 sat is 98%. She is feeding through an NG tube at 30cc/hr. Rectal bag and Kern to bedside present. SCDs on patient for DVT prophylaxis. She did not do her daily dialysis today but the plan is to start back on that tomorrow. Discussed with RN. Chart reviewed. 03/23/2021: Patient remains in ICU on ventilator. FiO2 40%, PEEP 5. Trach cultures positive for [place] albicans and acinebacter ursungi. We will continue treatment with IV antibiotics and micafungin, per ID. HD per nephrology. Plans for PEG tube placement today. 30 minutes critical care time was spent reviewing charts, reviewing labs, reviewing imaging, discussion with RN. 03/24/2021: Afebrile. On vent with FiO2 45%, PEEP 5. Had attempted PEG placement per GI yesterday, but unable to locate safe path for PEG; will consider surgical opinion. Once PEG is in place she should be stable for LTAC transfer when accepted. Continue antibiotics, per ID. 30 minutes critical care time was spent reviewing charts, reviewing labs, reviewing imaging, discussion with RN. 03/25/2021: Febrile overnight with T-max 101.5 F. On vent with FiO2 45%, PEEP 5. Surgery has been consulted with tentative plans for laparoscopic versus open gastrostomy placement tomorrow. Trach cultures positive for [place] albicans and now acinebacter ursungi; will continue antibiotic management, per ID. Hem odialysis, per nephrology. Patient needing LTAC placement, but currently without benefits. color drum worker following for discharge planning. Critical care time 30 minutes spent reviewing charts, reviewing labs, reviewing imaging, discussion with RN. 03/26/2021: Febrile today with T-max 100.5 F. Awake on vent with FiO2 45%, PEEP 5. When I ask if she remembers any she nods. G-tube placement scheduled for tomorrow, per general surgery. Chest x-ray today showed slight interval increase in diffuse infiltrate. Continue antibiotic management, per ID. Hemodialysis per nephrology. Reportedly did not tolerate CPAP trial this morning. color drum worker following for LTAC placement. Critical care time 30 minutes spent reviewing charts, reviewing labs, reviewing imaging, discussion with RN. 03/27/2021: On vent with FiO2 45%, PEEP 5. Afebrile today. Continue treatment of acute renal failure requiring HD, per nephrology. Monitor kidney function for recovery. G-tube placement scheduled for today, per general surgery. Likely LTAC placement soon, but this is been a difficult as she is self-pay without benefits; high school social studies tutor following. Critical care time 30 minutes spent reviewing charts, reviewing labs, reviewing imaging, discussion with RN. 03/28/2021: Afebrile. On vent with FiO2 40%, PEEP 5. Had laparoscopic gastrostomy tube placed yesterday, per general surgery. Continue treatment of acute renal failure requiring HD, per nephrology. Continue IV antibiotics, per ID. Likely LTAC placement soon, but this is been a difficult as she is self-pay without benefits; high school social studies tutor following. Critical care time 30 minutes spent reviewing charts, reviewing labs, reviewing imaging, discussion with RN. 03/29/2021: Afebrile. On vent with FiO2 45%, PEEP 5. S/P laparoscopic gastrostomy tube; tube feeds running. HD, per nephrology. Continue meropenem, per ID. Anticipate LTAC placement soon now that PEG has being placed; high school social studies tutor helping in these regards. Critical care time 30 minutes spent reviewing c harts, reviewing labs, reviewing imaging, discussion with RN. 03/30 No major events or clinical changes overnight. Patient evaluated at bedside this morning on trach and G-tube. Tolerating these well. Has been working on insurance for patient for placement as she will need long-term care. Guarded prognosis. Plan of care discussed with bedside nurse. 03/31 No major clinical changes. Remains trached. Sedated. Continue current plan. 04/01 No changes. Patient resting in bed when evaluated sedated. is supposed to be working on insurance for placement for the patient. Otherwise no changes. 04/02 Patient febrile overnight, daptomycin added this morning per infectious disease. Otherwise no major clinical changes. Awaiting insurance. Infectious disease, pulmonary and renal following. Plan of care discussed with bedside RN. 04/03 Patient undergoing dialysis today. Evaluated at bedside this morning. otherwise continue current plan. supposed working on insurance. 04/04 No major overnight changes. Continue current plan. 04/05 Patient notably more movement this morning eyes open resting in bed otherwise no major changes. Continue current plan. Insurance pending. 04/06 Patient notably more movement this morning eyes open resting in bed current plan. Insurance pending. Continue daptomycin, renal dosing April 02 F/U Blood culture UA urine culture C. diff PCR negative 32 min cc time 04/07 Patient notably more movement this morning eyes open resting in bed current plan. Insurance pending. Continue daptomycin, renal dosing April 02 F/U Blood culture UA urine culture C. diff PCR negative Abnormal chest x-ray consistent with COVID-19 viral pneumonia. Diabetic ketoacidosis--resolved obesity contributing to hypoxia as well. BOB . hemodialysis started 03/07 DVT GI prophylaxis Nutritional support 34 min cc time 04/08 Patient notably more movement this morning eyes open resting in bed current plan. Insurance pending. Continue daptomycin, renal dosing April 02 F/U Blood culture UA urine culture C. diff PCR negative s/p lap G-tube 03/27 Abnormal chest x-ray consistent with COVID-19 viral pneumonia. Diabetic ketoacidosis--resolved obesity contributing to hypoxia as well. BOB . hemodialysis started 03/07 DVT GI prophylaxis Nutritional support Right PICC line February 14 out; left PICC line 04/07/2021 Right IJ HDC clean March 07 32 min cc time 04/09 non Oliguric for past 11/2 -2 weeks , good response to IV NS bolus .requiring dialysis., currently on MWF schedule, tolerating trach shield well.using her speaking valve./ resting in bed current / states she feels better Start iv Zyvox Cont Meropenem DC daptomycin post PICC line exchange aspiration precautions C. diff PCR negative F/U Blood culture UA urine culture s/p lap G-tube 03/27 Abnormal chest x-ray consistent with COVID-19 viral pneumonia. Diabetic ketoacidosis--resolved obesity contributing to hypoxia as well. BOB . hemodialysis started 03/07 DVT GI prophylaxis Nutritional support Right PICC line February 14 out; left PICC line 04/07/2021 Right IJ HDC clean March 07 34 min cc time Vitals/I&O Vitals/I&O: Vital Signs Date Time Temp Pulse Resp B/P (MAP) Pulse Ox O2 Delivery O2 Flow Rate FiO2 04/27/21 11:20 98.3 117 18 137/74 (95) 100 Nasal Cannula 2.0 98.3 I & O 04/26/21 04/26/21 04/27/21 15:00 23:00 07:00 Intake Total 1200 ml 200 ml 0 ml Output Total 1250 ml 600 ml 1000 ml Balance -50 ml -400 ml -1000 ml Physical Exam Physical Exam: GENERAL: No acute distress, AAOx3, pleasant. HEENT: Normocephalic, atraumatic. Anicteric. Neck right IJ HDC clean Trach + capped LUNGS: Decreased breath sounds otherwise clear HEART: S1, S2. No murmurs. ABDOMEN: Obese, soft. Bowel sounds present. Nontender, nondistended. PEG tube pulled out by patient EXTREMITIES: Edema present no cyanosis. CENTRAL NERVOUS SYSTEM: CN II-XII intact, No FND. PSYCHIATRIC: AAOx3, pleasant. Derm has pressure wounds wound pictures noted in chart. Generalized rash, Right PICC line removed; left PICC line 04/07/2021 Right IJ HDC clean March 07 General: Alert, Oriented X3, Cooperative, No acute distress Heart: Normal S1, Normal S2, Other (Tachycardic) Lungs: Crackles Abdomen: Soft, Other (ND) Extremities: No cyanosis, Other (ANASARCA) Skin: No rashes, No significant lesion Labs Labs: Laboratory Tests Test 04/26/21 16:15 04/27/21 05:00 04/27/21 08:07 04/27/21 11:35 Glucose (Fingerstick) 227 mg/dL (70-99) 177 mg/dL (70-99) 233 mg/dL (70-99) White Blood Count 9.4 x10^3/uL (4.0-11.0) Red Blood Count 3.31 x10^6/uL (3.50-5.40) Hemoglobin 9.4 g/dL (12.0-15.5) Hematocrit 28.0 % (36.0-47.0) Mean Corpuscular Volume 85 fL (79-100) Mean Corpuscular Hemoglobin 29 pg (25-35) Mean Corpuscular Hemoglobin Concent 34 g/dL (31-37) Red Cell Distribution Width 14.3 % (11.5-14.5) Platelet Count 245 x10^3/uL (140-400) Neutrophils (%) (Auto) 64 % (31-73) Lymphocytes (%) (Auto) 22 % (24-48) Monocytes (%) (Auto) 10 % (0-9) Eosinophils (%) (Auto) 4 % (0-3) Basophils (%) (Auto) 1 % (0-3) Neutrophils # (Auto) 6.0 x10^3/uL (1.8-7.7) Lymphocytes # (Auto) 2.0 x10^3/uL (1.0-4.8) Monocytes # (Auto) 0.9 x10^3/uL (0.0-1.1) Eosinophils # (Auto) 0.4 x10^3/uL (0.0-0.7) Basophils # (Auto) 0.1 x10^3/uL (0.0-0.2) Sodium Level 133 mmol/L (136-145) Potassium Level 4.2 mmol/L (3.5-5.1) Chloride Level 97 mmol/L (98-107) Carbon Dioxide Level 31 mmol/L (21-32) Anion Gap 5 (6-14) Blood Urea Nitrogen 28 mg/dL (7-20) Creatinine 1.7 mg/dL (0.6-1.0) Estimated GFR (Cockcroft-Gault) 32.5 Glucose Level 178 mg/dL (70-99) Calcium Level 9.2 mg/dL (8.5-10.1) Review of Systems Review of Systems: Patient had emesis x1, ROS otherwise negative. Assessment and Plan Assessmemt and Plan Problems Medical Problems: (1) Ketoacidosis Status: Acute COVID-19 acute hypoxic respiratory failure DKA Hypotension Nausea Vomiting Combined metabolic and respiratory acidosis Acute electrolyte derangementhyponatremia, hypochloremia due to volume depletion Hyperglycemia BOB due to ATN, requiring dialysis Erythrocytosis Candiduria Sacral decubitus ulcer S/P Trach on (03/17/21) Trach cultures positive for [place] albicans and now acinebacter ursungi Plan PT/OT evaluation Erlin BSMagui Restart home meds Encourage PO intake DVT Prophylaxis- Heparin Disposition pending PT/OT evaluation Full Code Comment Review of Relevant I have reviewed the following items mazin (where applicable) has been applied. Justifications for Admission Other Justification DIANELYS BLACKMON III DO Apr 27, 2021 12:35
[2021-04-27] MEDS: ONDANSETRON PF 4 MG/2 ML VIAL. IVP PRN (13:38)
[2021-04-27 15:23] VITALS: BP 113/62
[2021-04-27] MEDS: diphenhydrAMINE ORAL ELIXIR 12.5 MG/5 ML ML PEG PRN (16:49)
[2021-04-27] MEDS: PROCHLORPERAZINE 10 MG/2 ML VIAL. IV PRN (16:50)
[2021-04-27 19:00] VITALS: BP 113/55
[2021-04-27] MEDS: ATORVASTATIN CALCIUM 40 MG TABLET. PO SCH (21:52)
[2021-04-27 22:52] VITALS: BP 144/74
[2021-04-28 03:06] VITALS: BP 156/79
[2021-04-28] MEDS: HEPARIN for SUB-Q USE 5,000 UNIT/ML VIAL. SQ SCH ×3 (06:02→21:52)
[2021-04-28 06:37] LABS: BASO # 0.1 x10^3/uL (0.0-0.2); BASO % 1 % (0-3); EOS # 0.3 x10^3/uL (0.0-0.7); EOS % 3 % (0-3); HEMATOCRIT 24.7 % (36.0-47.0); HEMOGLOBIN 8.5 g/dL (12.0-15.5); LYMPH # 2.4 x10^3/uL (1.0-4.8); LYMPH % 26 % (24-48); MEAN CORPUSCULAR HEMOGLOBIN 29 pg (25-35); MEAN CORPUSCULAR HGB CONC 35 g/dL (31-37); MEAN CORPUSCULAR VOLUME 85 fL (79-100); MONO # 0.8 x10^3/uL (0.0-1.1); MONO % 9 % (0-9); NEUT # 5.9 x10^3/uL (1.8-7.7); NEUT % 62 % (31-73); PLATELET COUNT 259 x10^3/uL (140-400); RED BLOOD COUNT 2.91 x10^6/uL (3.50-5.40); RED CELL DISTRIBUTION WIDTH 14.1 % (11.5-14.5); WHITE BLOOD COUNT 9.5 x10^3/uL (4.0-11.0)
[2021-04-28 07:03] LABS: CALCIUM 9.2 mg/dL (8.5-10.1); CREATININE 1.6 mg/dL (0.6-1.0); GFR 34.9; POTASSIUM 4.6 mmol/L (3.5-5.1)
[2021-04-28 07:39] VITALS: BP 145/70
[2021-04-28] MEDS: FAMOTIDINE 20 MG/2 ML VIAL IVP SCH ×2 (08:22→13:39)
[2021-04-28] MEDS: DOCUSATE 100 MG/10 ML SOLUTION. PO SCH ×2 (08:24→21:50)
[2021-04-28] MEDS: MULTIVITAMINS,THERAPEUTIC 5 ML ORAL LIQUID. PEG SCH (08:24)
[2021-04-28] MEDS: INSULIN LISPRO 300 UNITS/3 ML VIAL. SQ SCH ×4 (08:30→21:51)
[2021-04-28] MEDS: INSULIN GLARGINE SYRINGE. SQ SCH ×2 (08:32→21:52)
[2021-04-28] MEDS: fentaNYL 25MCG/HR PATCH 1 PATCH PATCH.TD72 TD SCH (08:41)
[2021-04-28] MEDS: NYSTATIN TOPICAL POWDER 15GM BOTTLE. TP SCH ×2 (08:41→21:53)
[2021-04-28 11:02] VITALS: BP 135/65
--- NOTE | 2021-04-28 11:41 | PDOC ---
Date of Service: DATE: 04/28/21 TIME: 11:40 Objective: Objective: D/w nurse - out for GES - has been doing better. Vital Signs: Vital Signs Date Time Temp Pulse Resp B/P (MAP) Pulse Ox O2 Delivery O2 Flow Rate FiO2 04/28/21 11:02 98.4 110 18 135/65 (88) 97 Room Air 98.4 04/27/21 19:40 2.0 Labs: Laboratory Tests Test 04/27/21 16:40 04/27/21 21:08 04/28/21 06:00 Glucose (Fingerstick) 197 mg/dL 254 mg/dL White Blood Count 9.5 x10^3/uL Red Blood Count 2.91 x10^6/uL Hemoglobin 8.5 g/dL Hematocrit 24.7 % Mean Corpuscular Volume 85 fL Mean Corpuscular Hemoglobin 29 pg Mean Corpuscular Hemoglobin Concent 35 g/dL Red Cell Distribution Width 14.1 % Platelet Count 259 x10^3/uL Neutrophils (%) (Auto) 62 % Lymphocytes (%) (Auto) 26 % Monocytes (%) (Auto) 9 % Eosinophils (%) (Auto) 3 % Basophils (%) (Auto) 1 % Neutrophils # (Auto) 5.9 x10^3/uL Lymphocytes # (Auto) 2.4 x10^3/uL Monocytes # (Auto) 0.8 x10^3/uL Eosinophils # (Auto) 0.3 x10^3/uL Basophils # (Auto) 0.1 x10^3/uL Sodium Level 132 mmol/L Potassium Level 4.6 mmol/L Chloride Level 94 mmol/L Carbon Dioxide Level 31 mmol/L Anion Gap 7 Blood Urea Nitrogen 33 mg/dL Creatinine 1.6 mg/dL Estimated GFR (Cockcroft-Gault) 34.9 Glucose Level 219 mg/dL Calcium Level 9.2 mg/dL PE: out of room A/P: COVID recovered G tube in place N/v DM -- Await GES. Justicifation of Admission Dx: Justifications for Admission: Justification of Admission Dx: N/A JANELLE MONTENEGRO Apr 28, 2021 11:41
--- NOTE | 2021-04-28 12:25 | PDOC ---
DATE OF SERVICE DATE: 04/28/21 TIME: 12:22 SUBJECTIVE ROS No complaints Kern removed yesterday per recommnedations. She reports no issues with voiding Still has PEG, states taking PO OBJECTIVE Vital Signs Vital Signs Date Time Temp Pulse Resp B/P (MAP) Pulse Ox O2 Delivery O2 Flow Rate FiO2 04/28/21 11:02 98.4 110 18 135/65 (88) 97 Room Air 98.4 04/27/21 19:40 2.0 I & 0 Intake and Output 04/28/21 06:59 Intake Total 800 ml Output Total 1150 ml Balance -350 ml Intake Oral 800 ml Output Urine Total 1150 ml # Bowel Movements 1 PHYSICAL EXAM Physical Exam GENERAL: NAD , HEENT: Anicteric. . OM moist Neck supple LUNGS: decreased at bases HEART: S1, S2. No murmurs. ABDOMEN: Obese, soft. Bowel sounds present. EXTREMITIES: no cyanosis. Kern + DIAGNOSIS/ASSESSMENT Assessment & Plan BOB-ATN- Resolved, probably her baseline renal function now E-Lytes, Resp status stable. Supportive care, avoid nephrotoxins, Kern since hospitalization (> 2 months),Dced yesterday . No concerns per patient . Follow up with us Post dc - routine/Non urgent HypoNatremia - mild , stable DM 2 COVID 19 Pneumonia POA - Unvaccinated Acute Resp Failure- requuired intubation/Trach . Decannulation on 04/24 HTN Anemia -avoid DOYLE 2/2 to Thrombogenic state Family History of ESRD - Per at bedside- Pt's Mom was on dialysis and sister is on Dialysis COMMENT/RELEVANT DATA Meds Current Medications Medications (Trade) Dose Ordered Sig/Pepe Start Time Stop Time Status Last Admin Dose Admin Acetaminophen (Tylenol Supp) 650 mg PRN Q6HRS PRN 02/08/21 01:45 02/17/21 10:45 DC Acetaminophen (Tylenol) 500 mg 1X PRN PRN 03/17/21 13:30 03/18/21 13:29 DC Acetaminophen/ Hydrocodone Bitart (Lortab 10/325) 1 tab PRN Q6HRS PRN 04/26/21 10:30 Acetaminophen/ Hydrocodone Bitart (Lortab 7.5/325) 1 tab PRN Q6HRS PRN 04/26/21 10:30 Albumin Human 200 ml @ 200 mls/hr 1X PRN PRN 04/06/21 08:45 04/06/21 14:44 DC 04/06/21 10:43 200 MLS/HR Albuterol Sulfate (Ventolin Hfa) 60 puff STK-MED ONCE 03/17/21 11:29 03/17/21 11:29 DC Albuterol Sulfate (Ventolin Neb Soln) 2.5 mg PRN Q4HRS PRN 04/19/21 13:00 04/21/21 05:30 2.5 MG Albuterol/ Ipratropium (Duoneb) 3 ml RTQID 04/15/21 10:00 04/25/21 11:31 DC 04/25/21 11:24 3 ML Alteplase, Recombinant (Cathflo For Central Catheter Clearance) 1 mg 1X ONCE 02/27/21 14:30 02/27/21 14:36 DC 02/27/21 15:19 1 MG Alteplase, Recombinant (Cathflo) 2 mg 1X ONCE 02/27/21 11:00 02/27/21 11:01 DC 02/27/21 11:20 2 MG Amlodipine Besylate (Norvasc) 10 mg DAILY 03/31/21 09:00 04/20/21 11:15 DC 04/20/21 08:36 10 MG Atorvastatin Calcium (Lipitor) 40 mg HS 02/08/21 21:00 04/27/21 21:52 40 MG Atropine Sulfate (ATROPINE 0.5mg SYRINGE) 0.5 mg PRN Q5MIN PRN 02/16/21 12:00 Azithromycin 250 mg/Sodium Chloride 250 ml @ 250 mls/hr Q24H 02/14/21 13:30 02/18/21 14:29 DC 02/18/21 11:51 250 MLS/HR Barium Sulfate (Varibar Thin Liquid Apple) 148 gm 1X ONCE 04/17/21 10:00 04/17/21 10:02 DC 04/17/21 11:30 148 GM Benzonatate (Tessalon Perle) 100 mg [id number] 02/10/21 23:30 02/17/21 10:45 DC 02/16/21 22:07 100 MG Bupivacaine HCl/ Epinephrine Bitart (Sensorcain-Epi 0.5% Kit) 30 ml STK-MED ONCE 03/27/21 10:05 03/27/21 10:05 DC 03/27/21 13:12 16 ML Bupivacaine HCl/ Epinephrine Bitart (Sensorcain-Epi 0.5%-1:[id number] Mpf) 30 ml STK-MED ONCE 03/17/21 10:47 03/17/21 10:47 DC Carvedilol (Coreg) 6.25 mg [id number] 02/08/21 20:30 02/23/21 15:50 DC 02/23/21 08:06 6.25 MG Cefazolin Sodium/ Dextrose (Ancef 2gm Premix) 2 gm STK-MED ONCE 03/23/21 13:00 03/24/21 11:58 DC Ceftriaxone Sodium (Rocephin) 1 gm Q24H 02/14/21 13:00 02/23/21 07:34 DC 02/22/21 12:42 1 GM Cellulose (Surgicel Fibrillar 1x2) 1 each STK-MED ONCE 03/17/21 10:47 03/17/21 10:47 DC 03/17/21 11:56 1 EACH Daptomycin 480 mg/ Sodium Chloride 50 ml @ 100 mls/hr QMWF 03/23/21 16:00 03/26/21 10:29 DC 03/25/21 19:52 100 MLS/HR Daptomycin 500 mg/ Sodium Chloride 50 ml @ 100 mls/hr Q48H 04/02/21 10:00 04/09/21 10:52 DC 04/08/21 13:14 100 MLS/HR Dexamethasone Sodium Phosphate (Decadron) 2 mg 1X ONCE 02/27/21 09:00 02/26/21 07:15 DC Dexmedetomidine HCl 400 mcg/ Sodium Chloride 100 ml @ 0 mls/hr CONT PRN 02/27/21 09:45 04/16/21 15:07 DC 04/15/21 05:36 0.2 MLS/HR Dextrose (Dextrose 50%-Water Syringe) 12.5 gm PRN Q15MIN PRN 03/01/21 13:00 03/01/21 12:55 12.5 GM Diphenhydramine HCl (Benadryl Oral Elixir) 25 mg PRN Q6HRS PRN 04/20/21 09:45 04/27/21 16:49 25 MG Diphenhydramine HCl (Benadryl) 25 mg 1X PRN PRN 03/17/21 13:30 03/18/21 13:29 DC Docusate Sodium (Colace Solution) 100 mg BID 02/23/21 12:00 04/28/21 08:24 100 MG Docusate Sodium (Colace) 100 mg PRN DAILY PRN 02/07/21 08:45 02/23/21 10:47 DC Enalaprilat (Vasotec Inj) 0.625 mg Q6HRS 02/08/21 16:15 02/09/21 16:01 DC 02/09/21 13:42 0.625 MG Enoxaparin Sodium (Lovenox 30mg Syringe) 30 mg Q24H 03/08/21 09:00 03/12/21 15:38 DC 03/12/21 09:04 30 MG Enoxaparin Sodium (Lovenox 40mg Syringe) 40 mg BID 02/09/21 09:00 03/08/21 13:56 DC 03/08/21 08:26 40 MG Enoxaparin Sodium (Lovenox Per Pharmacy Prophylaxis Dosing) 1 each PRN DAILY PRN 02/09/21 06:45 03/12/21 15:38 DC Ephedrine Sulfate (ePHEDrine PF IN SALINE SYRINGE) 50 mg STK-MED ONCE 03/17/21 10:56 03/17/21 10:56 DC Famotidine (Pepcid Vial) 20 mg DAILY 03/10/21 09:00 04/27/21 08:51 20 MG Fentanyl (Duragesic 25mcg/ Hr Patch) 1 patch Q3DAYS 04/13/21 13:00 04/28/21 08:41 1 PATCH Fentanyl Citrate (Fentanyl 2ml Vial) 100 mcg 1X ONCE 04/13/21 14:00 04/13/21 14:03 DC 04/13/21 13:54 50 MCG Fluconazole/ Sodium Chloride 100 ml @ 100 mls/hr Q24H 03/07/21 09:00 03/17/21 08:03 DC 03/16/21 08:29 100 MLS/HR Fluoxetine HCl (PROzac) 20 mg 1X ONCE 04/10/21 11:15 04/10/21 11:34 DC Furosemide (Lasix) 40 mg 1X ONCE 03/29/21 15:00 03/29/21 15:02 DC 03/29/21 15:22 40 MG Glycerin/ Hypromellose/ Polyethylene (Artificial Tears) 1 drop PRN Q1HR PRN 02/17/21 10:00 04/05/21 08:02 1 DROP Glycopyrrolate (Robinul) 1 mg STK-MED ONCE 03/27/21 14:07 03/27/21 14:07 DC Guaifenesin (Robitussin Dm) 10 ml PRN Q6HRS PRN 02/10/21 23:30 04/23/21 22:12 10 ML Haloperidol Lactate (Haldol Inj) 5 mg Q8HRS 04/01/21 11:30 04/07/21 14:58 DC 04/07/21 05:51 5 MG Heparin Sodium (Porcine) (Heparin Sodium) 5,000 unit Q8HRS 03/13/21 06:00 04/28/21 12:10 5,000 UNIT Hydralazine HCl (Apresoline Inj) 10 mg PRN Q4HRS PRN 02/11/21 12:15 04/22/21 22:29 10 MG Hydromorphone HCl (Dilaudid) 0.5 mg PRN Q10MIN PRN 03/27/21 06:00 03/28/21 05:59 DC Info (CONTRAST GIVEN -- Rx MONITORING) 1 each PRN DAILY PRN 04/13/21 13:45 04/15/21 13:44 DC Info (PHARMACY MONITORING -- do not chart) 1 each PRN DAILY PRN 04/10/21 13:30 Cancel Insulin Glargine (Lantus Syringe) 20 unit BID 04/24/21 21:00 04/28/21 08:32 20 UNIT Insulin Human Lispro (HumaLOG) 15 units 1X ONCE 04/24/21 21:15 04/24/21 21:16 DC 04/24/21 22:14 15 UNITS Insulin Human Regular 100 ml @ 10 mls/hr 1X ONCE 02/07/21 06:30 02/07/21 16:54 DC 02/07/21 09:31 6.5 MLS/HR Insulin Human Regular 100 unit/ Sodium Chloride 101 ml @ 0 mls/hr CONT PRN PRN 02/07/21 06:00 02/07/21 16:54 DC Iohexol (Omnipaque 240 Mg/ml) 50 ml 1X ONCE 04/13/21 13:45 04/13/21 13:46 DC 04/13/21 13:45 28 ML Labetalol HCl (Normodyne Iv Push) 10 mg PRN Q2HR PRN 02/08/21 00:45 04/16/21 19:53 10 MG Lactobacillus Rhamnosus (Culturelle) 1 cap BID 02/16/21 21:00 02/17/21 10:45 DC 02/16/21 22:02 1 CAP Lidocaine HCl (Buffered Lidocaine 1%) 3 ml STK-MED ONCE 03/07/21 13:25 03/07/21 13:25 DC Linezolid (Zyvox) 600 mg BID 03/05/21 09:00 03/12/21 07:00 DC 03/11/21 20:33 600 MG Linezolid/Dextrose 300 ml @ 300 mls/hr Q12HR 04/09/21 12:00 04/11/21 12:54 DC 04/11/21 09:59 300 MLS/HR Lisinopril (Prinivil) 20 mg DAILY 02/17/21 09:00 03/09/21 10:43 DC 02/27/21 09:10 20 MG Lorazepam (Ativan Inj) 1 mg PRN Q2HR PRN 04/10/21 11:15 04/27/21 22:04 1 MG Magnesium Sulfate 50 ml @ 25 mls/hr 1X ONCE 04/17/21 18:00 04/17/21 19:59 DC 04/17/21 17:31 25 MLS/HR Meropenem 1 gm/ Sodium Chloride 100 ml @ 200 mls/hr Q24H 03/18/21 17:00 04/10/21 11:57 DC 04/09/21 17:00 200 MLS/HR Methylprednisolone Sodium Succinate (SOLU-Medrol 125MG VIAL) 80 mg Q8HRS 02/25/21 09:00 02/26/21 07:09 DC 02/26/21 05:52 80 MG Metoclopramide HCl (Reglan Vial) 10 mg PRN Q6HRS PRN 02/08/21 00:45 02/12/21 15:51 10 MG Micafungin Sodium 100 mg/Dextrose 100 ml @ 100 mls/hr Q24H 03/21/21 18:00 9/15/21 10:27 DC 03/24/21 16:36 100 MLS/HR Midazolam HCl (Versed) 2 mg 1X ONCE 04/13/21 14:00 04/13/21 14:03 DC 04/13/21 13:54 2 MG Morphine Sulfate (Morphine Sulfate) 1 mg PRN Q10MIN PRN 03/27/21 06:00 03/28/21 05:59 DC Multi-Ingred Cream/Lotion/Oil/ Oint (Artificial Tears Eye Ointment) 1 reji PRN Q1HR PRN 03/17/21 17:30 03/20/21 15:55 1 REJI Multivitamins/ Minerals Therapeutic (Centrum Multivit-Mineral Liq) 5 ml DAILY 03/14/21 09:00 04/28/21 08:24 5 ML Naloxone HCl (Narcan) 0.4 mg PRN Q2MIN PRN 03/27/21 14:30 Neostigmine [place] (Neostigmine Methylsulfate) 5 mg STK-MED ONCE 03/27/21 14:06 03/27/21 14:07 DC Norepinephrine Bitartrate 8 mg/ Dextrose 258 ml @ 21.711 mls/ hr CONT PRN 03/06/21 13:45 04/15/21 14:14 DC 03/19/21 18:45 23.3 MLS/HR Nystatin (Nystop) 1 reji BID 03/02/21 21:00 04/28/21 08:41 1 REJI Ondansetron HCl (Zofran Odt) 4 mg 1X ONCE 02/06/21 23:30 02/06/21 23:31 DC 02/06/21 23:57 4 MG Ondansetron HCl (Zofran) 4 mg STK-MED ONCE 04/13/21 13:33 04/13/21 13:33 DC Oxycodone/ Acetaminophen (Percocet 5/325) 2 tab PRN Q4HRS PRN 04/19/21 11:45 Phenylephrine HCl (PHENYLEPHRINE in 0.9% NACL PF) 1 mg STK-MED ONCE 03/27/21 13:46 03/27/21 13:46 DC Piperacillin Sod/ Tazobactam Sod (Zosyn Per Pharmacy) 1 each PRN DAILY PRN 02/23/21 07:45 03/17/21 10:04 DC Piperacillin Sod/ Tazobactam Sod 2.25 gm/Sodium Chloride 50 ml @ 100 mls/hr Q8HRS 03/07/21 14:00 03/17/21 08:03 DC 03/17/21 05:58 100 MLS/HR Piperacillin Sod/ Tazobactam Sod 3.375 gm/Sodium Chloride 50 ml @ 100 mls/hr Q6HRS 03/14/21 18:00 Cancel Piperacillin Sod/ Tazobactam Sod 4.5 gm/Sodium Chloride 100 ml @ 200 mls/hr Q6HRS 02/23/21 08:00 03/07/21 08:18 DC 03/07/21 06:12 200 MLS/HR Potassium Bicarbonate (Potassium Effervescent Tablet) 40 meq 1X ONCE 04/16/21 09:00 04/16/21 09:04 DC 04/16/21 09:22 40 MEQ Potassium Chloride/Water 100 ml @ 50 mls/hr Q2HR 04/17/21 18:00 04/17/21 21:59 DC 04/17/21 21:55 50 MLS/HR Potassium Chloride (Klor-Con) 40 meq 1X ONCE 02/13/21 12:00 02/13/21 12:01 DC 02/13/21 13:21 40 MEQ Prochlorperazine Edisylate (Compazine) 5 mg PACU PRN PRN 03/27/21 06:00 03/28/21 05:59 DC Propofol (Diprivan) 200 mg STK-MED ONCE 03/27/21 12:02 03/27/21 12:03 DC Remdesivir 100 mg/ Sodium Chloride 230 ml @ 460 mls/hr Q24H 02/15/21 12:00 02/18/21 12:29 DC 02/18/21 11:52 460 MLS/HR Remdesivir 200 mg/ Sodium Chloride 210 ml @ 210 mls/hr 1X ONCE 02/11/21 13:00 02/12/21 11:55 DC 02/11/21 14:33 210 MLS/HR Ringer's Solution 1,000 ml @ 30 mls/hr Q24H 03/27/21 06:00 03/27/21 17:59 DC Rocuronium [place] (Zemuron) 50 mg STK-MED ONCE 03/27/21 13:16 03/27/21 13:17 DC Sennosides (Senna) 17.2 mg PRN BID PRN 02/07/21 08:45 02/22/21 08:29 17.2 MG Sevoflurane (Ultane) 60 ml STK-MED ONCE 03/27/21 14:19 03/27/21 14:20 DC Sodium Chloride 1,000 ml @ 125 mls/hr 1X ONCE 04/25/21 10:15 04/25/21 18:14 DC 04/25/21 10:15 125 MLS/HR Sodium Chloride (Normal Saline Flush) 3 ml QSHIFT PRN 03/27/21 14:30 Succinylcholine Chloride (Anectine) 200 mg STK-MED ONCE 02/17/21 10:00 02/25/21 08:40 DC Vancomycin HCl (Vanco Per Pharmacy) 1 each PRN DAILY PRN 03/04/21 18:30 03/05/21 08:59 DC 03/04/21 19:47 1 EACH Vancomycin HCl (Vancomycin Trough Level) 1 each 1X ONCE 03/06/21 07:00 03/06/21 07:01 Cancel Vancomycin HCl 1.5 gm/Sodium Chloride 500 ml @ 250 mls/hr Q12H 03/05/21 07:30 03/05/21 08:58 DC Vancomycin HCl 1 gm/Sodium Chloride 250 ml @ 250 mls/hr Q12H 03/04/21 20:00 UNV Vancomycin HCl 2 gm/Sodium Chloride 500 ml @ 250 mls/hr 1X ONCE 03/04/21 19:00 03/04/21 20:59 DC 03/04/21 19:26 250 MLS/HR Vecuronium [place] (Norcuron Bolus) 6 mg PRN Q2HRS PRN 03/06/21 14:30 04/16/21 14:59 DC 03/16/21 10:16 5 MG Vitamin A/Vitamin D (Vitamin A & D Ointment) 1 reji PRN Q1HR PRN 03/10/21 01:45 03/20/21 09:34 1 REJI Zolpidem Tartrate (Ambien) 5 mg PRN QHS PRN 04/10/21 11:15 Lab Laboratory Tests Test 04/27/21 16:40 04/27/21 21:08 04/28/21 06:00 04/28/21 11:54 Glucose (Fingerstick) 197 mg/dL (70-99) 254 mg/dL (70-99) 172 mg/dL (70-99) White Blood Count 9.5 x10^3/uL (4.0-11.0) Red Blood Count 2.91 x10^6/uL (3.50-5.40) Hemoglobin 8.5 g/dL (12.0-15.5) Hematocrit 24.7 % (36.0-47.0) Mean Corpuscular Volume 85 fL (79-100) Mean Corpuscular Hemoglobin 29 pg (25-35) Mean Corpuscular Hemoglobin Concent 35 g/dL (31-37) Red Cell Distribution Width 14.1 % (11.5-14.5) Platelet Count 259 x10^3/uL (140-400) Neutrophils (%) (Auto) 62 % (31-73) Lymphocytes (%) (Auto) 26 % (24-48) Monocytes (%) (Auto) 9 % (0-9) Eosinophils (%) (Auto) 3 % (0-3) Basophils (%) (Auto) 1 % (0-3) Neutrophils # (Auto) 5.9 x10^3/uL (1.8-7.7) Lymphocytes # (Auto) 2.4 x10^3/uL (1.0-4.8) Monocytes # (Auto) 0.8 x10^3/uL (0.0-1.1) Eosinophils # (Auto) 0.3 x10^3/uL (0.0-0.7) Basophils # (Auto) 0.1 x10^3/uL (0.0-0.2) Sodium Level 132 mmol/L (136-145) Potassium Level 4.6 mmol/L (3.5-5.1) Chloride Level 94 mmol/L (98-107) Carbon Dioxide Level 31 mmol/L (21-32) Anion Gap 7 (6-14) Blood Urea Nitrogen 33 mg/dL (7-20) Creatinine 1.6 mg/dL (0.6-1.0) Estimated GFR (Cockcroft-Gault) 34.9 Glucose Level 219 mg/dL (70-99) Calcium Level 9.2 mg/dL (8.5-10.1) Results All relevant outside records, renal labs, imaging studies, telemetry/EKG's were reviewed. Justicifation of Admission Dx: Justifications for Admission: Justification of Admission Dx: N/A GIGI CARMEN MD Apr 28, 2021 12:25
--- NOTE | 2021-04-28 12:36 | PDOC ---
[employer] PROGRESS NOTE Date of Service DOS: DATE: 04/28/21 TIME: 12:30 Chief Complaint Chief Complaint COVID-19 acute hypoxic respiratory failure DKA Hypotension Nausea Vomiting Combined metabolic and respiratory acidosis Acute electrolyte derangementhyponatremia, hypochloremia due to volume deple tion Hyperglycemia BOB due to ATN, requiring dialysis Erythrocytosis Candiduria Sacral decubitus ulcer S/P Trach on (03/17/21) Trach cultures positive for [place] albicans and now acinebacter ursungi History of Present Illness History of Present Illness 04/28: Pt examined and seen at bedside Afebrile Tachycardic (~110) Satting well on 2L by NC No acute overnight events noted PT/OT working to get pt strong enough for DC home Pt reports feeling improved Charts reviewed Discussed with RN and social service agency director 04/27: Patient seen and examined at bedside Afebrile Tachycardic (~115) On 2L nasal canula Had an episode of emesis x1, otherwise no acute overnight events noted. Per RN, patient is weak, needs further PT/OT evaluation. Patient states she is feeling overall improved. Encouraged PO intake with patient. Charts Reviewed Discussed case with RN and SW. 04/26: Afebrile, tachycardic, on 2 L nasal cannula. S/P decannulation. payroll services analyst helping to provide patient with Medicaid/disability. Denies any further nausea or vomiting; believes her previous symptoms were secondary to the fluid at this hospital. Complains of sacral pain 01/17. Will provide hydrocodone options, given stated oxycodone allergy. 04/25: Afebrile, breathing on 2 L nasal cannula. Tachycardic. Decannulation yesterday. provided some documentation yesterday to help with Medicaid/disability applications. payroll services analyst following. 04/24: Afebrile. Had decannulation today, per Dr. Perkins Currently breathing on 8 L nasal cannula. Per GI, if vomiting recurs will consider GES. 04/23: Slightly tachycardic this morning, on trach collar with 8 L. Still with some nausea and vomiting. Reconsult GI with some concerns of possible gastroparesis. Continue to monitor off antibiotics and monitor kidney function. 04/22: No acute events overnight, resting comfortably in bed. Creatinine 2.0 today, EGFR 26.9. She is self-pay and med assist following and waiting spouse to provide information to complete necessary applications. Continue to monitor kidney function and monitor off antibiotics. 04/21: Afebrile, resting comfortably in bed. Kidney function remained stable, creatinine 1.8, eGFR 30.4. I believe plans per nephrology are to remove HD line today. We will continue to monitor off antibiotics. payroll services analyst working with to help with emergency Medicare. 04/20: Afebrile, breathing on 10 L trach shield. Had some itching today; ordered as needed Benadryl. Kidney function improved and appears to be stable. Per nephrology, possible HD line removal tomorrow. Per ID, will monitor off antibiotics. 04/19 Patient evaluated and examined at bedside. Sugars pretty high today will need more insulin adjustments. On trach collar when I saw her. Continue diet as tolerated. Discussed with at bedside. Diet as tolerated. Working towards discharge. Continue antibiotics. Will ask renal if temporary HD catheter is still needed if not can remove. 04/18 Patient evaluated examined at bedside. She was on trach collar. Continue regular diet as tolerated. Monitoring blood pressure. Working towards discharge. 04/17 Patient evaluated and examined at bedside. She is pretty alert today. Underwent video swallow study earlier and cleared for regular diet with thin liquids. Definite improvement for her. On trach collar when I saw her. Continue current treatments. Watch blood pressure. If she well keep up a consistent amount of p.o. intake may be able to stop tube feeds and PEG tube removal. But this is far down the line. 04/16 Patient seen examined at bedside. Transfer out of the ICU yesterday. Speech therapy to evaluate this morning. Improved notably since I last saw her in the ICU. Continue PEG feeds. Blood pressure treatment. Plan of care discussed w [facility] bedside RN. 04/15/2021 Patient seen and examined in the ICU She has clean dry intact tracheostomy with trach shield PEG feeds running at 30 cc an hour She really wants to drink water I told her that we are awaiting speech therapy to reevaluate her Chart reviewed Discussed with RN 04/14/2021 Patient seen and examined in the ICU She remains pleasantly confused Has a new PEG in place Discussed with physical therapy Discussed with RN Chart reviewed 04/13/2021 Patient seen and examined in the ICU She is pleasantly confused Sedated with Precedex and fentanyl I discussed with the speech therapist the patient has no laryngeal movement Now she is n.p.o. again Going for new PEG placement in interventional radiology hopefully later today Her trach is clean Chart reviewed Discussed with RN 04/12/2021 Patient seen and examined in the ICU Her is present today and seems to be good support for her Chart reviewed Discussed with RN Still sedated with Precedex and fentanyl but awake 04/11/2021 Patient seen and examined in the ICU She remains quite confused currently sedated Chart reviewed Discussed with RN Had some nausea vomiting last night Pulled out her PEG yesterday Currently on fentanyl and Precedex IV Zyvox hanging 04/10/2021 Patient seen and examined in the ICU She is pleasantly confused Has a trach shield in place Discussed with RN Chart reviewed We are adding in some as needed Ativan and scheduled Prozac Ms Borges is a 46 year old female who presented with nausea/vomiting since 7 AM 02/06/2021 in the morning. Patient stated that her recently tested positive for Covid. She states that he "coughed in my face because he thought it was funny." She reports subjective fevers and chills and nausea/vomiting. Denies sore throat, cough, shortness of breath. No chest pain. Does have some upper abdominal discomfort after vomiting, that she attributes to muscular strain. She was not vaccinated for Covid. 02/08: No acute events overnight. Patient seen and examined bedside and resting comfortably. Continues to complain of nausea not able to tolerate any diet at this time. Saturating 98% on room air. Patient's chart, labs, images were reviewed and discussed with RN 02/09: Afebrile, currently breathing on room air. Still with complaints of nausea and vomiting x3 today. States that she has history of similar symptoms that have been mildly improved with IV Dilaudid. 02/10: Patient febrile today with T-max 102.2 F. She still admits to nausea, denies any further vomiting. We will continue to provide supportive care and monitor for any recurrent fevers overnight. Patient continues to improve may discharge tomorrow to continue self-isolation. 02/11: Febrile overnight, T-max 102.3 F. She did become hypoxic overnight, currently breathing on 4 L nasal cannula. Also admits to associated vomiting or diarrhea overnight. Discussed with RN, will initiate remdesivir and closely monitor LFTs. IV Decadron, and prophylactic antibiotics. 02/12: Low-grade fever overnight, T-max 99.7. Currently breathing on room air. W ill discontinue remdesivir, steroids, and antibiotics; will observe overnight. Still with complaints of vomiting x1 and diarrhea. We will continue to provide supportive care and hope to discharge in the next day or so. 02/13: Afebrile. Still complains of intermittent diarrhea. At the time of my evaluation she was breathing on 6 L nasal cannula; this is somewhat misleading as patient states that she did not feel short of breath but was placed on 6 L by nursing staff overnight. 02/14: Afebrile, currently breathing on 8 L nasal cannula. There has been some misleading documentation, chart oxygen this patient is requiring. Discussed with RN, will resume remdesivir to complete total of 5 days. Continue to monitor LFTs. Will add steroids, Rocephin, and azithromycin. 02/15: Afebrile. Became much more hypoxic overnight, requiring BiPAP. At the time of my evaluation she is still breathing on BiPAP. Consultation was placed to pulmonology. Had discussion with Dr. Myrick about initiating Tocilizumab 02/16: No acute events overnight. Patient becoming more hypoxic saturating 94% and requiring BiPAP. Patient will be transferred to the ICU at this time. For worsening clinical status. Discussed with pulmonary. Patient's chart, labs, images were reviewed and discussed with RN 02/17: Transferred to ICU yesterday afternoon. Seen and examined at bedside she remains on 100% FiO2 on BiPAP. Respirations do appear somewhat labored. Suspect intubation may be impending. We will closely monitor. Increase lisinopril to 20 today. 02/18: Patient required intubation yesterday afternoon. Saw and examined this morning. She is intubated and sedated. Increase insulin today. Covid protocol ordered. Wean as tolerated. Plan of care discussed with bedside nurse. 02/19: Bedside. She remains intubated and sedated. Continue Covid protocol. Wean oxygen sedation as tolerated. Pulmonary following. Plan of care discussed with bedside RN. 02/20: Patient seen and examined at bedside. She remains intubated and sedated. No major clinical changes. Continue current treatment. Pulmonary following. Plan of care discussed with bedside RN. 02/21: Patient seen and examined at bedside. Remains intubated and sedated date and admission clinical changes. Increase free water flushes today due to hypernatremia. Plan of care discussed with bedside nurse. 02/22: Patient seen and examined at bedside. O2 requirement actually improving, although remains intubated. Possible SBT in the coming days. Hypernatremia improving. Plan of care discussed bedside RN. 02/23: Patient remains in ICU on ventilator with FiO2 100%, PEEP 7. Repeat chest x-ray yesterday showed diffuse bilateral pulmonary opacities with no interval improvement. Will discontinue Rocephin and initiate Zosyn. We will continue IV steroids for a full 10-day course 02/24: Afebrile. On vent with FiO2 40%, PEEP 6. Her Coreg has been held due to persistent bradycardia. No documented history of systolic heart failure or previous echocardiogram. Will need to obtain echocardiogram prior to discharge. Continue IV steroids and antibiotics. 02/25: Afebrile. Remains ventilated with FiO2 45%, PEEP 6. Chest x-ray today showed slight improvement of the pulmonary infiltrates, no pneumothorax. Completed 10-day course of IV Decadron. Will initiate slow Solu-Medrol taper. Continue IV Zosyn. Continue supportive care. 02/26: Afebrile. On vent with FiO2 45%, PEEP 6. Completed 10 days of IV De cadron. Will continue IV Zosyn. Continue supportive care. Critical care time 30 minutes spent reviewing charts, reviewing imaging, reviewing labs, discussion with RN. 02/27: Afebrile. On vent with FiO2 45%, PEEP 6. Completed 10 days of steroids and completed remdesivir. Continue with IV Zosyn. CPAP trial yesterday. Continue NG tube and supportive care. 02/28:. Patient remains on vent with FiO2 40%, PEEP 5. Afebrile. Completed steroids and remdesivir. Some noted hypoglycemia overnight, will de-escalate basal insulin. Continue IV Zosyn. Ventilator management per pulmonology. Continue NG tube and supportive care. 03/01: On vent with FiO2 40%, PEEP 5. Afebrile. Completed steroids and remdesivir. Blood glucose well controlled. Continue empiric antibiotics with Zosyn. Ventilator management per pulmonology. Continue NG tube and supportive care. 03/02: No acute events overnight. Patient hypotensive the morning due to oversedation. Will wean off sedation and keep antihypertensive medications on board. Currently saturating 100% on vent settings of 18/450/40/5. Will attempt spontaneous breathing trial today to see how patient does. 03/03: No acute events overnight. Patient saturating 98% on vent settings of 18/450/40/5. Will defer spontaneous breathing trials to pulmonary at this time. Patient's chart, labs, images were reviewed and discussed with RN 03/04: No acute events overnight. Patient saturating 9 9% on vent settings of 18/450/30/5. Patient currently is unable to tolerate weaning. Per pulmonary. Patient's chart, labs, images were reviewed and discussed with RN 03/05: No acute events overnight. Patient is saturating 97% on vent settings of 18/450/55/5. Her FiO2 needs to be increased due to abnormal ABG with 7.3 . Patient's chart, labs, images were reviewed and discussed with RN 03/06: No acute events overnight. Patient saturating 94% on vent settings of 18/450/55/5. Chest x-ray showing increase in pulmonary infiltrates. Wound care is consulted for decubitus ulcer patient's chart, labs, images were reviewed and discussed with RN 03/07: No acute events overnight. Patient saturating 94% on vent settings of 20/ 450/70/8. Patient now heading into renal failure with her creatinine bumped up from 1.5-4.2. Decreased urine output. Plan for hemodialysis today and temporary catheter placement and nephrology is consulted. 03/08: No acute events overnight. Patient did have a nausea vomiting episode and tube feeds were held. KUB repeat shows NG tube still in the stomach. Will resume tube feeds at trickle and advance to goal today. Will start hemodialysis soon. 03/09: Seen on vent 20/450/60%/8. ABG 7.2 WBC 11.4, Hb 7.4, platelets 188, NA 131, K4.9, BUN 48, CR 51, glucose 199, phosphorus 7.9, mag 2.2, AST 265 ALT 219, albumin 1.1. Chest radiograph appears unchanged from prior. Dialysis x1 today 03/10: Afebrile. Seen on vent, 20/450/60/7 with ABG 7.3 6/37/91 . Tolerated dialysis well on 03/09. LFTs similar. 03/11: Afebrile. Seen on vent, sedated. Still requiring Levophed for BP support. WBC 16.7, Hb 8.1, NA 130, ABG 7.3 on 55% FiO2 PEEP 6. On Zosyn and Zyvox Diflucan. Dialysis today 03/12: Afebrile. Still requiring Levophed for BP support sedated with Versed febrile Precedex. WBC 16.1, Hb 8.5, platelets 185, NA 133. Trach plan tentativ britany 03/17. O2 saturations 93% on 50% FiO2 PEEP 6. ABG 7. On Zosyn and Zyvox Diflucan. 03/13: Afebrile. Still on Levophed for BP support lightly sedated. 7. on 45% FiO2. Plan for dialysis today. On Zosyn and Zyvox Diflucan. More swollen today. 03/14: Afebrile. Weaning down off Levophed. WBC 14.9 NA 132. O2 saturations 92% on 45% FiO2 PEEP 5. Afebrile. O2 saturations 91% on FiO2 45% PEEP 6. Continued on Zosyn and Zyvox Diflucan. Tentative trach planned 03/17/2021 CC time 31 minutes 03/16/21: Patient seen and examined in ICU. Periorbital as well as upper and lower extremity edema noted. OG feed running at 30cc/hr. Still on vent on pressure control with a rate of 24 with 45% FiO2. Patient has rectal bag. Currently she has 98% O2 sat. Currently sedated with Dexmedetomidine, Propofol, Versed, and Fentanyl. Discussed with RN. Chart reviewed. 03/17/21: Patient was seen and examined in the ICU today. Periorbital edema as well as abdominal and mons pubis edema was noted. Patient still on vent on pressure control with Fi02 of 45% plus 6 PEEP. Patient had rectal bag. Currently sedated on Dexmedetomidine, Propofol, Versed, and Fentanyl. Discussed with RN. Chart reviewed. 03/18/21: Patient seen and examined in ICU. On vent via trach that was placed yesterday. Vent settings are Pressure Control of 40 with FiO2 of 45% and 6 PEEP. Trach clean and dry. Orbital swelling still present. Pupils are sluggish. Patient on TPN running at 30cc/hr. Kern to bedside and rectal bag in place. Current O2 sat at 94%. Sedated on Dexmedetomidine, Propofol, Versed, and Fentanyl. Discussed with RN. Chart reviewed. 03/19/21: Patient was seen and examined in the ICU today. Currently on vent via trach on pressure control of 42, rate of 24, FiO2 of 45%, and 6 PEEP. O2 sat is at 97% while patient is being examined. Trach is clean and dry. PICC line is in place on right arm. Periorbital swelling has decreased slightly since examined yesterday. Patient is sedated on Dexmedetomidine, Propofol, Versed, and Fentanyl. Discussed with RN. Chart reviewed. 03/20/21: Patient seen and examined in the ICU. Periorbital edema is slightly decreased since yesterday. O2 sat while being examined was 93%. NG tube in place and running at 30cc/hr. Patient on vent via trach on pressure control of 40 with FiO2 of 45 and rate of 24. Sedated on Dexmedetomidine, Propofol, Versed, and Fentanyl. PICC line in place. Kern to bedside. Rectal bag present. Discussed with RN. Chart reviewed. 03/21/21: Patient was seen and examined in the ICU today. She was semi-sedated.. She was on Dexmedetomidine and Fentanyl. We are holding the Propofol. Her eyes were periodically open but she was not making meaningful eye contact or tracking. On vent via trach with pressure control of 40 and FiO2 at 45. Rate was 24. PEEP was 5. Trach was clean and dry. While being examined, her O2 sat was 94%. Rectal bag and Kern to bedside in place. NG tube in place and feeding at 30cc/hr. IV fluids still running. Levophed has been stopped. Discussed with RN. Chart reviewed. 03/22/21: Patient was seen and examined in the ICU. She was semi-sedated on Propofol and Dexmedetomidine. Her eyes were open but she did not make meaningful eye contact. Her blood pressure was elevated (198/102) while being examined and she had just been given hydralazine to lower it. There are plans to place a PEG tube tomorrow. Currently on vent via trach on pressure control of 40 with FiO2 of 45%, 5 PEEP, and a rate of 24. Current O2 sat is 98%. She is feeding through an NG tube at 30cc/hr. Rectal bag and Kern to bedside present. SCDs on patient for DVT prophylaxis. She did not do her daily dialysis today but the plan is to start back on that tomorrow. Discussed with RN. Chart reviewed. 03/23/2021: Patient remains in ICU on ventilator. FiO2 40%, PEEP 5. Trach cultures positive for [place] albicans and acinebacter ursungi. We will continue treatment with IV antibiotics and micafungin, per ID. HD per nephrology. Plans for PEG tube placement today. 30 minutes critical care time was spent reviewing charts, reviewing labs, reviewing imaging, discussion with RN. 03/24/2021: Afebrile. On vent with FiO2 45%, PEEP 5. Had attempted PEG placement per GI yesterday, but unable to locate safe path for PEG; will consider surgical opinion. Once PEG is in place she should be stable for LTAC transfer when accepted. Continue antibiotics, per ID. 30 minutes critical care time was spent reviewing charts, reviewing labs, reviewing imaging, discussion with RN. 03/25/2021: Febrile overnight with T-max 101.5 F. On vent with FiO2 45%, PEEP 5. Surgery has been consulted with tentative plans for laparoscopic versus open gastrostomy placement tomorrow. Trach cultures positive for [place] albicans and now acinebacter ursungi; will continue antibiotic management, per ID. Hemo dialysis, per nephrology. Patient needing LTAC placement, but currently without benefits. delinquency prevention social worker following for discharge planning. Critical care time 30 minutes spent reviewing charts, reviewing labs, reviewing imaging, discussion with RN. 03/26/2021: Febrile today with T-max 100.5 F. Awake on vent with FiO2 45%, PEEP 5. When I ask if she remembers any she nods. G-tube placement scheduled for tomorrow, per general surgery. Chest x-ray today showed slight interval increase in diffuse infiltrate. Continue antibiotic management, per ID. Hemodialysis per nephrology. Reportedly did not tolerate CPAP trial this morning. delinquency prevention social worker following for LTAC placement. Critical care time 30 minutes spent reviewing charts, reviewing labs, reviewing imaging, discussion with RN. 03/27/2021: On vent with FiO2 45%, PEEP 5. Afebrile today. Continue treatment of acute renal failure requiring HD, per nephrology. Monitor kidney function for recovery. G-tube placement scheduled for today, per general surgery. Likely LTAC placement soon, but this is been a difficult as she is self-pay without benefits; social service agency director following. Critical care time 30 minutes spent reviewing charts, reviewing labs, reviewing imaging, discussion with RN. 03/28/2021: Afebrile. On vent with FiO2 40%, PEEP 5. Had laparoscopic gastrostomy tube placed yesterday, per general surgery. Continue treatment of acute renal failure requiring HD, per nephrology. Continue IV antibiotics, per ID. Likely LTAC placement soon, but this is been a difficult as she is self-pay without benefits; social service agency director following. Critical care time 30 minutes spent reviewing charts, reviewing labs, reviewing imaging, discussion with RN. 03/29/2021: Afebrile. On vent with FiO2 45%, PEEP 5. S/P laparoscopic gastrostomy tube; tube feeds running. HD, per nephrology. Continue meropenem, per ID. Anticipate LTAC placement soon now that PEG has being placed; social service agency director helping in these regards. Critical care time 30 minutes spent reviewing charts, reviewing labs, reviewing imaging, discussion with RN. 03/30 No major events or clinical changes overnight. Patient evaluated at bedside this morning on trach and G-tube. Tolerating these well. Has been working on insurance for patient for placement as she will need long-term care. Guarded prognosis. Plan of care discussed with bedside nurse. 03/31 No major clinical changes. Remains trached. Sedated. Continue current plan. 04/01 No changes. Patient resting in bed when evaluated sedated. is supposed to be working on insurance for placement for the patient. Otherwise no changes. 04/02 Patient febrile overnight, daptomycin added this morning per infectious disease. Otherwise no major clinical changes. Awaiting insurance. Infectious disease, pulmonary and renal following. Plan of care discussed with bedside RN. 04/03 Patient undergoing dialysis today. Evaluated at bedside this morning. otherwise continue current plan. supposed working on insurance. 04/04 No major overnight changes. Continue current plan. 04/05 Patient notably more movement this morning eyes open resting in bed otherwise no major changes. Continue current plan. Insurance pending. 04/06 Patient notably more movement this morning eyes open resting in bed current plan. Insurance pending. Continue daptomycin, renal dosing April 02 F/U Blood culture UA urine culture C. diff PCR negative 32 min cc time 04/07 Patient notably more movement this morning eyes open resting in bed current plan. Insurance pending. Continue daptomycin, renal dosing April 02 F/U Blood culture UA urine culture C. diff PCR negative Abnormal chest x-ray consistent with COVID-19 viral pneumonia. Diabetic ketoacidosis--resolved obesity contributing to hypoxia as well. BOB . hemodialysis started 03/07 DVT GI prophylaxis Nutritional support 34 min cc time 04/08 Patient notably more movement this morning eyes open resting in bed current plan. Insurance pending. Continue daptomycin, renal dosing April 02 F/U Blood culture UA urine culture C. diff PCR negative s/p lap G-tube 03/27 Abnormal chest x-ray consistent with COVID-19 viral pneumonia. Diabetic ketoacidosis--resolved obesity contributing to hypoxia as well. BOB . hemodialysis started 03/07 DVT GI prophylaxis Nutritional support Right PICC line February 14; left PICC line 04/07/2021 Right IJ HDC clean March 07 32 min cc time 04/09 non Oliguric for past 112 -2 weeks , good response to IV NS bolus .requiring dialysis., currently on MWF schedule, tolerating trach shield well.using her speaking valve./ resting in bed current / states she feels better Start iv Zyvox Cont Meropenem DC daptomycin post PICC line exchange aspiration precautions C. diff PCR negative F/U Blood culture UA urine culture s/p lap G-tube 03/27 Abnormal chest x-ray consistent with COVID-19 viral pneumonia. Diabetic ketoacidosis--resolved obesity contributing to hypoxia as well. BOB . hemodialysis started 03/07 DVT GI prophylaxis Nutritional support Right PICC line February 14; left PICC line 04/07/2021 Right IJ HDC clean March 07 34 min cc time Vitals/I&O Vitals/I&O: Vital Signs Date Time Temp Pulse Resp B/P (MAP) Pulse Ox O2 Delivery O2 Flow Rate FiO2 04/28/21 11:02 98.4 110 18 135/65 (88) 97 Room Air 98.4 04/27/21 19:40 2.0 I & O 04/27/21 04/27/21 04/28/21 15:00 23:00 07:00 Intake Total 180 ml 620 ml Output Total 300 ml 850 ml Balance -300 ml 180 ml -230 ml Physical Exam Physical Exam: GENERAL: No acute distress, AAOx3, pleasant. HEENT: Normocephalic, atraumatic. Anicteric. Neck right IJ HDC clean Trach + capped LUNGS: Decreased breath sounds otherwise clear HEART: S1, S2. No murmurs. ABDOMEN: Obese, soft. Bowel sounds present. Nontender, nondistended. PEG tube pulled out by patient EXTREMITIES: Edema present no cyanosis. CENTRAL NERVOUS SYSTEM: CN II-XII intact, No FND. PSYCHIATRIC: AAOx3, pleasant. Derm has pressure wounds wound pictures noted in chart. Generalized rash, Right PICC line removed; left PICC line 04/07/2021 Right IJ HDC clean March 07 General: Alert, Oriented X3, Cooperative, No acute distress Heart: Normal S1, Normal S2, Other (Tachycardic) Lungs: Crackles Abdomen: Soft, Other (ND) Extremities: No cyanosis, Other (ANASARCA) Skin: No rashes, No significant lesion Labs Labs: Laboratory Tests Test 04/27/21 16:40 04/27/21 21:08 04/28/21 06:00 04/28/21 11:54 Glucose (Fingerstick) 197 mg/dL (70-99) 254 mg/dL (70-99) 172 mg/dL (70-99) White Blood Count 9.5 x10^3/uL (4.0-11.0) Red Blood Count 2.91 x10^6/uL (3.50-5.40) Hemoglobin 8.5 g/dL (12.0-15.5) Hematocrit 24.7 % (36.0-47.0) Mean Corpuscular Volume 85 fL (79-100) Mean Corpuscular Hemoglobin 29 pg (25-35) Mean Corpuscular Hemoglobin Concent 35 g/dL (31-37) Red Cell Distribution Width 14.1 % (11.5-14.5) Platelet Count 259 x10^3/uL (140-400) Neutrophils (%) (Auto) 62 % (31-73) Lymphocytes (%) (Auto) 26 % (24-48) Monocytes (%) (Auto) 9 % (0-9) Eosinophils (%) (Auto) 3 % (0-3) Basophils (%) (Auto) 1 % (0-3) Neutrophils # (Auto) 5.9 x10^3/uL (1.8-7.7) Lymphocytes # (Auto) 2.4 x10^3/uL (1.0-4.8) Monocytes # (Auto) 0.8 x10^3/uL (0.0-1.1) Eosinophils # (Auto) 0.3 x10^3/uL (0.0-0.7) Basophils # (Auto) 0.1 x10^3/uL (0.0-0.2) Sodium Level 132 mmol/L (136-145) Potassium Level 4.6 mmol/L (3.5-5.1) Chloride Level 94 mmol/L (98-107) Carbon Dioxide Level 31 mmol/L (21-32) Anion Gap 7 (6-14) Blood Urea Nitrogen 33 mg/dL (7-20) Creatinine 1.6 mg/dL (0.6-1.0) Estimated GFR (Cockcroft-Gault) 34.9 Glucose Level 219 mg/dL (70-99) Calcium Level 9.2 mg/dL (8.5-10.1) Review of Systems Review of Systems: ROS negative Assessment and Plan Assessmemt and Plan Problems Medical Problems: (1) Ketoacidosis Status: Acute COVID-19 acute hypoxic respiratory failure DKA Hypotension Nausea Vomiting Combined metabolic and respiratory acidosis Acute electrolyte derangementhyponatremia, hypochloremia due to volume depletion Hyperglycemia BOB due to ATN, requiring dialysis Erythrocytosis Candiduria Sacral decubitus ulcer S/P Trach on (03/17/21) Trach cultures positive for [place] albicans and now acinebacter ursungi Plan PT/OT evaluation for DC home (with home health) [facility] Continue home meds Continue to encourage PO intake DVT Prophylaxis- Heparin Disposition: Home with Home Health (1-2 days) Full Code Comment Review of Relevant I have reviewed the following items mazin (where applicable) has been applied. Justifications for Admission Other Justification DIANELYS BLACKMON III DO Apr 28, 2021 12:36
--- NOTE | 2021-04-28 12:58 | RAD ---
Gastric Emptying Study 04/28/2021 Indication: Reason: Diabetic, recurrent emesis Procedure: Anterior and posterior projection static images are obtained over the stomach following or al administration of 2 mCi of 99 M technetium sulfur colloid in a solid meal (egg and toast). Time po ints include an immediate baseline, and 1, 2, 3 hours post ingestion. Findings: There is progressive emptying of the stomach on sequential images. Percentage retention at... One hour is 58% (normal 34.8-91%). Two hours 17% (normal 2.7-60%). Three hours 1% (normal 0.5-28%). Impression: Normal gastric emptying times Consensus Recommendations for Gastric Emptying Scintigraphy: A Joint Report of the [place] [employer]gast [employer] Society and the Society of Nuclear Medicine: J. Nucl. Med. Technol. September 09 vol. 36 no. 1 44-54 Grading for severity of delayed GE based on the 4-h value: grade 1 (mild): 11?20% retention at 4 h grade 2 (moderate): 21?35% retention at 4 h grade 3 (severe): 36?50% retention at 4 h grade 4 (very severe): >50% retention at 4 h. Electronically signed by: Owen De La Torre MD (04/28/2021 12:56 PM) [id number]
[2021-04-28] MEDS: ONDANSETRON PF 4 MG/2 ML VIAL. IVP PRN (13:39)
--- NOTE | 2021-04-28 14:49 | NUR ---
SS following up with discharge planning. SS reviewed pt chart and discussed with pt RN. Pt is currently on room air. COVID19 recovered. PO diet. Pt had gastric emptying study today. Self pay. [facility] following. Documents received from spouse. Disability and Medicaid pending. PT/OT working towards goal of discharging to home with [facility]. SS will continue to follow for discharge planning.
[2021-04-28 14:51] VITALS: BP 145/68
[2021-04-28] MEDS: diphenhydrAMINE ORAL ELIXIR 12.5 MG/5 ML ML PEG PRN ×2 (16:59→22:20)
[2021-04-28 19:00] VITALS: BP 167/77
--- NOTE | 2021-04-28 19:30 | NUR ---
pt in bed assessment completed vss poc explained pt c/o coccyx dressing, will change dressing and continue to monitor pt. Call light in reach.
[2021-04-28] MEDS: ATORVASTATIN CALCIUM 40 MG TABLET. PO SCH (21:50)
[2021-04-28 22:26] VITALS: BP 140/76
[2021-04-29 03:04] VITALS: BP 111/56
[2021-04-29] MEDS: HEPARIN for SUB-Q USE 5,000 UNIT/ML VIAL. SQ SCH ×3 (06:01→21:41)
[2021-04-29 06:10] VITALS: BP 159/76
[2021-04-29 06:26] LABS: BASO # 0.1 x10^3/uL (0.0-0.2); BASO % 1 % (0-3); EOS # 0.4 x10^3/uL (0.0-0.7); EOS % 3 % (0-3); HEMATOCRIT 25.3 % (36.0-47.0); HEMOGLOBIN 8.6 g/dL (12.0-15.5); LYMPH # 2.7 x10^3/uL (1.0-4.8); LYMPH % 24 % (24-48); MEAN CORPUSCULAR HEMOGLOBIN 29 pg (25-35); MEAN CORPUSCULAR HGB CONC 34 g/dL (31-37); MEAN CORPUSCULAR VOLUME 85 fL (79-100); MONO % 9 % (0-9); NEUT # 6.9 x10^3/uL (1.8-7.7); NEUT % 62 % (31-73); PLATELET COUNT 277 x10^3/uL (140-400); RED BLOOD COUNT 2.99 x10^6/uL (3.50-5.40); RED CELL DISTRIBUTION WIDTH 14.2 % (11.5-14.5)
[2021-04-29 06:49] LABS: CALCIUM 9.1 mg/dL (8.5-10.1); CREATININE 1.8 mg/dL (0.6-1.0); GFR 30.4; POTASSIUM 4.2 mmol/L (3.5-5.1)
--- NOTE | 2021-04-29 08:55 | PDOC ---
[employer] PROGRESS NOTE Date of Service DOS: DATE: 04/29/21 TIME: 08:47 Chief Complaint Chief Complaint COVID-19 acute hypoxic respiratory failure DKA Hypotension Nausea Vomiting Combined metabolic and respiratory acidosis Acute electrolyte derangementhyponatremia, hypochloremia due to volume deple tion Hyperglycemia BOB due to ATN, requiring dialysis Erythrocytosis Candiduria Sacral decubitus ulcer S/P Trach on (03/17/21) Trach cultures positive for [place] albicans and now acinebacter ursungi History of Present Illness History of Present Illness 04/29: Patient seen and examined at bedside Afebrile Comfortably resting at time of exam Tachycardic (~115) Satting 93 on 2L NC No acute overnight events Charts reviewed DWRN and SW 04/28: Pt examined and seen at bedside Afebrile Tachycardic (~110) Satting well on 2L by NC No acute overnight events noted PT/OT working to get pt strong enough for DC home Pt reports feeling improved Charts reviewed Discussed with RN and social services counselor 04/27: Patient seen and examined at bedside Afebrile Tachycardic (~115) On 2L nasal canula Had an episode of emesis x1, otherwise no acute overnight events noted. Per RN, patient is weak, needs further PT/OT evaluation. Patient states she is feeling overall improved. Encouraged PO intake with patient. Charts Reviewed Discussed case with RN and KIRBY. 04/26: Afebrile, tachycardic, on 2 L nasal cannula. S/P decannulation. special services agent helping to provide patient with Medicaid/disability. Denies any further nausea or vomiting; believes her previous symptoms were secondary to the fluid at this hospital. Complains of sacral pain 01/17. Will provide hydrocodone options, given stated oxycodone allergy. 04/25: Afebrile, breathing on 2 L nasal cannula. Tachycardic. Decannulation yesterday. provided some documentation yesterday to help with Medicaid/disability applications. special services agent following. 04/24: Afebrile. Had decannulation today, per Dr. Perkins Currently breathing on 8 L nasal cannula. Per GI, if vomiting recurs will consider GES. 04/23: Slightly tachycardic this morning, on trach collar with 8 L. Still with some nausea and vomiting. Reconsult GI with some concerns of possible gastroparesis. Continue to monitor off antibiotics and monitor kidney function. 04/22: No acute events overnight, resting comfortably in bed. Creatinine 2.0 today, EGFR 26.9. She is self-pay and med assist following and waiting spouse to provide information to complete necessary applications. Continue to monitor kidney function and monitor off antibiotics. 04/21: Afebrile, resting comfortably in bed. Kidney function remained stable, creatinine 1.8, eGFR 30.4. I believe plans per nephrology are to remove HD line today. We will continue to monitor off antibiotics. special services agent working with to help with emergency Medicare. 04/20: Afebrile, breathing on 10 L trach shield. Had some itching today; ordered as needed Benadryl. Kidney function improved and appears to be stable. Per nephrology, possible HD line removal tomorrow. Per ID, will monitor off antibiotics. 04/19 Patient evaluated and examined at bedside. Sugars pretty high today will need more insulin adjustments. On trach collar when I saw her. Continue diet as tolerated. Discussed with at bedside. Diet as tolerated. Working towards discharge. Continue antibiotics. Will ask renal if temporary HD catheter is still needed if not can remove. 04/18 Patient evaluated examined at bedside. She was on trach collar. Continue regular diet as tolerated. Monitoring blood pressure. Working towards discharge. 04/17 Patient evaluated and examined at bedside. She is pretty alert today. Underwent video swallow study earlier and cleared for regular diet with thin liquids. Definite improvement for her. On trach collar when I saw her. Continue current treatments. Watch blood pressure. If she well keep up a consistent amount of p.o. intake may be able to stop tube feeds and PEG tube removal. But this is far down the line. 04/16 Patient seen examined at bedside. Transfer out of the ICU yesterday. Speech therapy to evaluate this morning. Improved notably since I last saw her in the ICU. Continue PEG feeds. Blood pressure treatment. Plan of care discussed with bedside RN. 04/15/2021 Patient seen and examined in the ICU She has clean dry intact tracheostomy with trach shield PEG feeds running at 30 cc an hour She really wants to drink water I told her that we are awaiting speech therapy to reevaluate her Chart reviewed Discussed with RN 04/14/2021 Patient seen and examined in the ICU She remains pleasantly confused Has a new PEG in place Discussed with physical therapy Discussed with RN Chart reviewed 04/13/2021 Patient seen and examined in the ICU She is pleasantly confused Sedated with Precedex and fentanyl I discussed with the speech therapist the patient has no laryngeal movement Now she is n.p.o. again Going for new PEG placement in interventional radiology hopefully later today Her trach is clean Chart reviewed Discussed with RN 04/12/2021 Patient seen and examined in the ICU Her is present today and seems to be good support for her Chart reviewed Discussed with RN Still sedated with Precedex and fentanyl but awake 04/11/2021 Patient seen and examined in the ICU She remains quite confused currently sedated Chart reviewed Discussed with RN Had some nausea vomiting last night Pulled out her PEG yesterday Currently on fentanyl and Precedex IV Zyvox hanging 04/10/2021 Patient seen and examined in the ICU She is pleasantly confused Has a trach shield in place Discussed with RN Chart reviewed We are adding in some as needed Ativan and scheduled Prozac Ms Borges is a 46 year old female who presented with nausea/vomiting since 7 AM 02/06/2021 in the morning. Patient stated that her recently tested positive for Covid. She states that he "coughed in my face because he thought it was funny." She reports subjective fevers and chills and nausea/vomiting. Denies sore throat, cough, shortness of breath. No chest pain. Does have some upper abdominal discomfort after vomiting, that she attributes to muscular strain. She was not vaccinated for Covid. 02/08: No acute events overnight. Patient seen and examined bedside and resting comfortably. Continues to complain of nausea not able to tolerate any diet at this time. Saturating 98% on room air. Patient's chart, labs, images were reviewed and discussed with RN 02/09: Afebrile, currently breathing on room air. Still with complaints of nausea and vomiting x3 today. States that she has history of similar symptoms that have been mildly improved with IV Dilaudid. 02/10: Patient febrile today with T-max 102.2 F. She still admits to nausea, denies any further vomiting. We will continue to provide supportive care and monitor for any recurrent fevers overnight. Patient continues to improve may discharge tomorrow to continue self-isolation. 02/11: Febrile overnight, T-max 102.3 F. She did become hypoxic overnight, currently breathing on 4 L nasal cannula. Also admits to associated vomiting or diarrhea overnight. Discussed with RN, will initiate remdesivir and closely monitor LFTs. IV Decadron, and prophylactic antibiotics. 02/12: Low-grade fever overnight, T-max 99.7. Currently breathing on room air. Will discontinue remdesivir, steroids, and antibiotics; will observe overnight. Still with complaints of vomiting x1 and diarrhea. We will continue to provide supportive care and hope to discharge in the next day or so. 02/13: Afebrile. Still complains of intermittent diarrhea. At the time of my evaluation she was breathing on 6 L nasal cannula; this is somewhat misleading as patient states that she did not feel short of breath but was placed on 6 L by nursing staff overnight. 02/14: Afebrile, currently breathing on 8 L nasal cannula. There has been some misleading documentation, chart oxygen this patient is requiring. Discussed with RN, will resume remdesivir to complete total of 5 days. Continue to monitor LFTs. Will add steroids, Rocephin, and azithromycin. 02/15: Afebrile. Became much more hypoxic overnight, requiring BiPAP. At the time of my evaluation she is still breathing on BiPAP. Consultation was placed to pulmonology. Had discussion with Dr. Myrick about initiating Tocilizumab 02/16: No acute events overnight. Patient becoming more hypoxic saturating 94% and requiring BiPAP. Patient will be transferred to the ICU at this time. For worsening clinical status. Discussed with pulmonary. Patient's chart, labs, images were reviewed and discussed with RN 02/17: Transferred to ICU yesterday afternoon. Seen and examined at bedside she remains on 100% FiO2 on BiPAP. Respirations do appear somewhat labored. Suspect intubation may be impending. We will closely monitor. Increase lisinopril to 20 today. 02/18: Patient required intubation yesterday afternoon. Saw and examined this morning. She is intubated and sedated. Increase insulin today. Covid protocol ordered. Wean as tolerated. Plan of care discussed with bedside nurse. 02/19: Bedside. She remains intubated and sedated. Continue Covid protocol. Wean oxygen sedation as tolerated. Pulmonary following. Plan of care discussed with bedside RN. 02/20: Patient seen and examined at bedside. She remains intubated and sedated. No major clinical changes. Continue current treatment. Pulmonary following. Plan of care discussed with bedside RN. 02/21: Patient seen and examined at bedside. Remains intubated and sedated date and admission clinical changes. Increase free water flushes today due to hypernatremia. Plan of care discussed with bedside nurse. 02/22: Patient seen and examined at bedside. O2 requirement actually improving, although remains intubated. Possible SBT in the coming days. Hypernatremia improving. Plan of care discussed bedside RN. 02/23: Patient remains in ICU on ventilator with FiO2 100%, PEEP 7. Repeat chest x-ray yesterday showed diffuse bilateral pulmonary opacities with no interval improvement. Will discontinue Rocephin and initiate Zosyn. We will continue IV steroids for a full 10-day course 02/24: Afebrile. On vent with FiO2 40%, PEEP 6. Her Coreg has been held due to persistent bradycardia. No documented history of systolic heart failure or previous echocardiogram. Will need to obtain echocardiogram prior to discharge. Continue IV steroids and antibiotics. 02/25: Afebrile. Remains ventilated with FiO2 45%, PEEP 6. Chest x-ray today showed slight improvement of the pulmonary infiltrates, no pneumothorax. Completed 10-day course of IV Decadron. Will initiate slow Solu-Medrol taper. Continue IV Zosyn. Continue supportive care. 02/26: Afebrile. On vent with FiO2 45%, PEEP 6. Completed 10 days of IV Decadron. Will continue IV Zosyn. Continue supportive care. Critical care time 30 minutes spent reviewing charts, reviewing imaging, reviewing labs, discussion with RN. 02/27: Afebrile. On vent with FiO2 45%, PEEP 6. Completed 10 days of steroids and completed remdesivir. Continue with IV Zosyn. CPAP trial yesterday. Continue NG tube and supportive care. 02/28:. Patient remains on vent with FiO2 40%, PEEP 5. Afebrile. Completed steroids and remdesivir. Some noted hypoglycemia overnight, will de-escalate basal insulin. Continue IV Zosyn. Ventilator management per pulmonology. Continue NG tube and supportive care. 03/01: On vent with FiO2 40%, PEEP 5. Afebrile. Completed steroids and remdesivir. Blood glucose well controlled. Continue empiric antibiotics with Zosyn. Ventilator management per pulmonology. Continue NG tube and supportive care. 03/02: No acute events overnight. Patient hypotensive the morning due to oversedation. Will wean off sedation and keep antihypertensive medications on board. Currently saturating 100% on vent settings of 18/450/40/5. Will attempt spontaneous breathing trial today to see how patient does. 03/03: No acute events overnight. Patient saturating 98% on vent settings of 18/450/40/5. Will defer spontaneous breathing trials to pulmonary at this time. Patient's chart, labs, images were reviewed and discussed with RN 03/04: No acute events overnight. Patient saturating 9 9% on vent settings of 18/450/30/5. Patient currently is unable to tolerate weaning. Per pulmonary. Patient's chart, labs, images were reviewed and discussed with RN 03/05: No acute events overnight. Patient is saturating 97% on vent settings of 18/450/55/5. Her FiO2 needs to be increased due to abnormal ABG with 7.3 24. Patient's chart, labs, images were reviewed and discussed with RN 03/06: No acute events overnight. Patient saturating 94% on vent settings of 18/450/55/5. Chest x-ray showing increase in pulmonary infiltrates. Wound care is consulted for decubitus ulcer patient's chart, labs, images were reviewed and discussed with RN 03/07: No acute events overnight. Patient saturating 94% on vent settings of 20/450/70/8. Patient now heading into renal failure with her creatinine bumped up from 1.5-4.2. Decreased urine output. Plan for hemodialysis today and temporary catheter placement and nephrology is consulted. 03/08: No acute events overnight. Patient did have a nausea vomiting episode and tube feeds were held. KUB repeat shows NG tube still in the stomach. Will resume tube feeds at trickle and advance to goal today. Will start hemodialysis soon. 03/09: Seen on vent 20/450/60%/8. ABG 7.2 WBC 11.4, Hb 7.4, platelets 188, NA 131, K4.9, BUN 48, CR 51, glucose 199, phosphorus 7.9, mag 2.2, AST 265 ALT 219, albumin 1.1. Chest radiograph appears unchanged from prior. Dialysis x1 today 03/10: Afebrile. Seen on vent, 20/450/60/7 with ABG 7.3 . Tolerated dialysis well on 03/09. LFTs similar. 03/11: Afebrile. Seen on vent, sedated. Still requiring Levophed for BP support. WBC 16.7, Hb 8.1, NA 130, ABG 7.3 on 55% FiO2 PEEP 6. On Zosyn and Zy vox Diflucan. Dialysis today 03/12: Afebrile. Still requiring Levophed for BP support sedated with Versed febrile Precedex. WBC 16.1, Hb 8.5, platelets 185, NA 133. Trach plan tentatively 03/17. O2 saturations 93% on 50% FiO2 PEEP 6. ABG 7. On Zosyn and Zyvox Diflucan. 03/13: Afebrile. Still on Levophed for BP support lightly sedated. 7. on 45% FiO2. Plan for dialysis today. On Zosyn and Zyvox Diflucan. More swollen today. 03/14: Afebrile. Weaning down off Levophed. WBC 14.9 NA 132. O2 saturations 92% on 45% FiO2 PEEP 5. Afebrile. O2 saturations 91% on FiO2 45% PEEP 6. Continued on Zosyn and Zyvox Diflucan. Tentative trach planned 03/17/2021 CC time 31 minutes 03/16/21: Patient seen and examined in ICU. Periorbital as well as upper and lower extremity edema noted. OG feed running at 30cc/hr. Still on vent on pressure control with a rate of 24 with 45% FiO2. Patient has rectal bag. Currently she has 98% O2 sat. Currently sedated with Dexmedetomidine, Propofol, Versed, and Fentanyl. Discussed with RN. Chart reviewed. 03/17/21: Patient was seen and examined in the ICU today. Periorbital edema as well as abdominal and mons pubis edema was noted. Patient still on vent on pressure control with Fi02 of 45% plus 6 PEEP. Patient had rectal bag. Currently sedated on Dexmedetomidine, Propofol, Versed, and Fentanyl. Discussed with RN. Chart reviewed. 03/18/21: Patient seen and examined in ICU. On vent via trach that was placed yesterday. Vent settings are Pressure Control of 40 with FiO2 of 45% and 6 PEEP. Trach clean and dry. Orbital swelling still present. Pupils are sluggish. Patient on TPN running at 30cc/hr. Kern to bedside and rectal bag in place. Current O2 sat at 94%. Sedated on Dexmedetomidine, Propofol, Versed, and Fentanyl. Discussed with RN. Chart reviewed. 03/19/21: Patient was seen and examined in the ICU today. Currently on vent via trach on pressure control of 42, rate of 24, FiO2 of 45%, and 6 PEEP. O2 sat is at 97% while patient is being examined. Trach is clean and dry. PICC line is in place on right arm. Periorbital swelling has decreased slightly since examined yesterday. Patient is sedated on Dexmedetomidine, Propofol, Versed, and Fentanyl. Discussed with RN. Chart reviewed. 03/20/21: Patient seen and examined in the ICU. Periorbital edema is slightly decreased since yesterday. O2 sat while being examined was 93%. NG tube in place and running at 30cc/hr. Patient on vent via trach on pressure control of 40 with FiO2 of 45 and rate of 24. Sedated on Dexmedetomidine, Propofol, Versed, and Fentanyl. PICC line in place. Kern to bedside. Rectal bag present. Discussed with RN. Chart reviewed. 03/21/21: Patient was seen and examined in the ICU today. She was semi-sedated.. She was on Dexmedetomidine and Fentanyl. We are holding the Propofol. Her eyes were periodically open but she was not making meaningful eye contact or tracking. On vent via trach with pressure control of 40 and FiO2 at 45. Rate was 24. PEEP was 5. Trach was clean and dry. While being examined, her O2 sat was 94%. Rectal bag and Kern to bedside in place. NG tube in place and feeding at 30cc/hr. IV fluids still running. Levophed has been stopped. Discussed with RN. Chart reviewed. 03/22/21: Patient was seen and examined in the ICU. She was semi-sedated on Propofol and Dexmedetomidine. Her eyes were open but she did not make meaningful eye contact. Her blood pressure was elevated (198/102) while being examined and she had just been given hydralazine to lower it. There are plans to place a PEG tube tomorrow. Currently on vent via trach on pressure control of 40 with FiO2 of 45%, 5 PEEP, and a rate of 24. Current O2 sat is 98%. She is feeding through an NG tube at 30cc/hr. Rectal bag and Kern to bedside present. SCDs on patient for DVT prophylaxis. She did not do her daily dialysis today but the plan is to start back on that tomorrow. Discussed with RN. Chart reviewed. 03/23/2021: Patient remains in ICU on ventilator. FiO2 40%, PEEP 5. Trach cultures positive for [place] albicans and acinebacter ursungi. We will continue treatment with IV antibiotics and micafungin, per ID. HD per nephrology. Plans for PEG tube placement today. 30 minutes critical care time was spent reviewing charts, reviewing labs, reviewing imaging, discussion with RN. 03/24/2021: Afebrile. On vent with FiO2 45%, PEEP 5. Had attempted PEG placement per GI yesterday, but unable to locate safe path for PEG; will consider surgical opinion. Once PEG is in place she should be stable for LTAC transfer when accepted. Continue antibiotics, per ID. 30 minutes critical care time was spent reviewing charts, reviewing labs, reviewing imaging, discussion with RN. 03/25/2021: Febrile overnight with T-max 101.5 F. On vent with FiO2 45%, PEEP 5. Surgery has been consulted with tentative plans for laparoscopic versus open gastrostomy placement tomorrow. Trach cultures positive for [place] albicans and now acinebacter ursungi; will continue antibiotic management, per ID. Hemodialysis, per nephrology. Patient needing LTAC placement, but currently without benefits. direct support worker following for discharge planning. Critical care time 30 minutes spent reviewing charts, reviewing labs, reviewing imaging, discussion with RN. 03/26/2021: Febrile today with T-max 100.5 F. Awake on vent with FiO2 45%, PEEP 5. When I ask if she remembers any she nods. G-tube placement scheduled for tomorrow, per general surgery. Chest x-ray today showed slight interval increase in diffuse infiltrate. Continue antibiotic management, per ID. Hemodialysis per nephrology. Reportedly did not tolerate CPAP trial this morning. direct support worker following for LTAC placement. Critical care time 30 minutes spent reviewing charts, reviewing labs, reviewing imaging, discussion with RN. 03/27/2021: On vent with FiO2 45%, PEEP 5. Afebrile today. Continue treatment of acute renal failure requiring HD, per nephrology. Monitor kidney function for recovery. G-tube placement scheduled for today, per general surgery. Likely LTAC placement soon, but this is been a difficult as she is self-pay without benefits; social services counselor following. Critical care time 30 minutes spent reviewing charts, reviewing labs, reviewing imaging, discussion with RN. 03/28/2021: Afebrile. On vent with FiO2 40%, PEEP 5. Had laparoscopic gastr ostomy tube placed yesterday, per general surgery. Continue treatment of acute renal failure requiring HD, per nephrology. Continue IV antibiotics, per ID. Likely LTAC placement soon, but this is been a difficult as she is self-pay without benefits; social services counselor following. Critical care time 30 minutes spent reviewing charts, reviewing labs, reviewing imaging, discussion with RN. 03/29/2021: Afebrile. On vent with FiO2 45%, PEEP 5. S/P laparoscopic gastrostomy tube; tube feeds running. HD, per nephrology. Continue meropenem, per ID. Anticipate LTAC placement soon now that PEG has being placed; social services counselor helping in these regards. Critical care time 30 minutes spent reviewing charts, reviewing labs, reviewing imaging, discussion with RN. 03/30 No major events or clinical changes overnight. Patient evaluated at bedside this morning on trach and G-tube. Tolerating these well. Has been working on insurance for patient for placement as she will need long-term care. Guarded prognosis. Plan of care discussed with bedside nurse. 03/31 No major clinical changes. Remains trached. Sedated. Continue current plan. 04/01 No changes. Patient resting in bed when evaluated sedated. is supposed to be working on insurance for placement for the patient. Otherwise no changes. 04/02 Patient febrile overnight, daptomycin added this morning per infectious disease. Otherwise no major clinical changes. Awaiting insurance. Infectious disease, pulmonary and renal following. Plan of care discussed with bedside RN. 04/03 Patient undergoing dialysis today. Evaluated at bedside this morning. otherwise continue current plan. supposed working on insurance. 04/04 No major overnight changes. Continue current plan. 04/05 Patient notably more movement this morning eyes open resting in bed otherwise no major changes. Continue current plan. Insurance pending. 04/06 Patient notably more movement this morning eyes open resting in bed current plan. Insurance pending. Continue daptomycin, renal dosing April 02 F/U Blood culture UA urine culture C. diff PCR negative 32 min cc time 04/07 Patient notably more movement this morning eyes open resting in bed current plan. Insurance pending. Continue daptomycin, renal dosing April 02 F/U Blood culture UA urine culture C. diff PCR negative Abnormal chest x-ray consistent with COVID-19 viral pneumonia. Diabetic ketoacidosis--resolved obesity contributing to hypoxia as well. BOB . hemodialysis started 03/07 DVT GI prophylaxis Nutritional support 34 min cc time 04/08 Patient notably more movement this morning eyes open resting in bed current plan. Insurance pending. Continue daptomycin, renal dosing April 02 F/U Blood culture UA urine culture C. diff PCR negative s/p lap G-tube 03/27 Abnormal chest x-ray consistent with COVID-19 viral pneumonia. Diabetic ketoacidosis--resolved obesity contributing to hypoxia as well. BOB . hemodialysis started 03/07 DVT GI prophylaxis Nutritional support Right PICC line February 14; left PICC line 04/07/2021 Right IJ HDC clean March 07 32 min cc time 04/09 non Oliguric for past 11/2 -2 weeks , good response to IV NS bolus .requiring dialysis., currently on MWF schedule, tolerating trach shield well.using her speaking valve./ resting in bed current / states she feels better Start iv Zyvox Cont Meropenem DC daptomycin post PICC line exchange aspiration precautions C. diff PCR negative F/U Blood culture UA urine culture s/p lap G-tube 03/27 Abnormal chest x-ray consistent with COVID-19 viral pneumonia. Diabetic ketoacidosis--resolved obesity contributing to hypoxia as well. BOB . hemodialysis started 03/07 DVT GI prophylaxis Nutritional support Right PICC line February 14; left PICC line 04/07/2021 Right IJ HDC clean March 07 34 min cc time Vitals/I&O Vitals/I&O: Vital Signs Date Time Temp Pulse Resp B/P (MAP) Pulse Ox O2 Delivery O2 Flow Rate FiO2 04/29/21 06:10 98.4 107 18 159/76 (103) 93 Room Air 98.4 I & O 10/04/28/21 04/29/21 15:00 23:00 07:00 Intake Total 180 ml 220 ml Output Total 600 ml 400 ml 950 ml Balance -600 ml -220 ml -730 ml Physical Exam Physical Exam: GENERAL: No acute distress, comfortably resting, AAOx3, pleasant. HEENT: Normocephalic, atraumatic. Anicteric. Neck right IJ HDC clean Trach + capped LUNGS: Decreased breath sounds otherwise clear HEART: S1, S2. No murmurs. ABDOMEN: Obese, soft. Bowel sounds present. Nontender, nondistended. PEG tube pulled out by patient EXTREMITIES: Edema present no cyanosis. CENTRAL NERVOUS SYSTEM: CN II-XII intact, No FND. PSYCHIATRIC: AAOx3, pleasant. Derm has pressure wounds wound pictures noted in chart. Generalized rash, Right PICC line removed; left PICC line 04/07/2021 Right IJ HDC clean March 07 General: Alert, Oriented X3, Cooperative, No acute distress Heart: Normal S1, Normal S2, Other (Tachycardic) Lungs: Crackles Abdomen: Soft, Other (ND) Extremities: No cyanosis, Other (ANASARCA) Skin: No rashes, No significant lesion Labs Labs: Laboratory Tests Test 04/28/21 11:54 04/28/21 16:58 04/28/21 20:24 04/29/21 06:00 Glucose (Fingerstick) 172 mg/dL (70-99) 263 mg/dL (70-99) 208 mg/dL (70-99) White Blood Count 11.0 x10^3/uL (4.0-11.0) Red Blood Count 2.99 x10^6/uL (3.50-5.40) Hemoglobin 8.6 g/dL (12.0-15.5) Hematocrit 25.3 % (36.0-47.0) Mean Corpuscular Volume 85 fL (79-100) Mean Corpuscular Hemoglobin 29 pg (25-35) Mean Corpuscular Hemoglobin Concent 34 g/dL (31-37) Red Cell Distribution Width 14.2 % (11.5-14.5) Platelet Count 277 x10^3/uL (140-400) Neutrophils (%) (Auto) 62 % (31-73) Lymphocytes (%) (Auto) 24 % (24-48) Monocytes (%) (Auto) 9 % (0-9) Eosinophils (%) (Auto) 3 % (0-3) Basophils (%) (Auto) 1 % (0-3) Neutrophils # (Auto) 6.9 x10^3/uL (1.8-7.7) Lymphocytes # (Auto) 2.7 x10^3/uL (1.0-4.8) Monocytes # (Auto) 1.0 x10^3/uL (0.0-1.1) Eosinophils # (Auto) 0.4 x10^3/uL (0.0-0.7) Basophils # (Auto) 0.1 x10^3/uL (0.0-0.2) Sodium Level 134 mmol/L (136-145) Potassium Level 4.2 mmol/L (3.5-5.1) Chloride Level 96 mmol/L (98-107) Carbon Dioxide Level 28 mmol/L (21-32) Anion Gap 10 (6-14) Blood Urea Nitrogen 27 mg/dL (7-20) Creatinine 1.8 mg/dL (0.6-1.0) Estimated GFR (Cockcroft-Gault) 30.4 Glucose Level 170 mg/dL (70-99) Calcium Level 9.1 mg/dL (8.5-10.1) Test 04/29/21 08:01 Glucose (Fingerstick) 213 mg/dL (70-99) Review of Systems Review of Systems: ROS negative Assessment and Plan Assessmemt and Plan Problems Medical Problems: (1) Ketoacidosis Status: Acute COVID-19 acute hypoxic respiratory failure DKA Hypotension Nausea Vomiting Combined metabolic and respiratory acidosis Acute electrolyte derangementhyponatremia, hypochloremia due to volume depletion Hyperglycemia BOB due to ATN, requiring dialysis Erythrocytosis Candiduria Sacral decubitus ulcer S/P Trach on (03/17/21) Trach cultures positive for [place] albicans and now acinebacter ursungi Plan Discharge home with Home Health per PT/OT approval Erlin MCGRATH Continue home meds Continue to encourage PO intake DVT Prophylaxis- Heparin Disposition: Home with Home Health (1-2 days) Full Code Comment Review of Relevant I have reviewed the following items mazin (where applicable) has been applied. Justifications for Admission Other Justification DIANELYS BLACKMON III DO Apr 29, 2021 08:55
[2021-04-29] MEDS: NYSTATIN TOPICAL POWDER 15GM BOTTLE. TP SCH ×2 (09:00→21:42)
[2021-04-29] MEDS: MULTIVITAMINS,THERAPEUTIC 5 ML ORAL LIQUID. PEG SCH (09:25)
[2021-04-29] MEDS: FAMOTIDINE 20 MG/2 ML VIAL IVP SCH (09:25)
[2021-04-29] MEDS: DOCUSATE 100 MG/10 ML SOLUTION. PO SCH ×2 (09:26→21:40)
[2021-04-29] MEDS: ACETAMINOPHEN 650 MG/20.3 ML SOLUTION. PEG PRN ×2 (09:34→21:52)
[2021-04-29] MEDS: INSULIN LISPRO 300 UNITS/3 ML VIAL. SQ SCH ×4 (09:45→21:42)
--- NOTE | 2021-04-29 10:37 | PDOC ---
Date of Service: DATE: 04/29/21 TIME: 10:34 Subjective: Subjective: Denies vomiting. Objective: Objective: No GI concerns per nurse. Vital Signs: Vital Signs Date Time Temp Pulse Resp B/P (MAP) Pulse Ox O2 Delivery O2 Flow Rate FiO2 04/29/21 06:10 98.4 107 18 159/76 (103) 93 Room Air 98.4 Labs: Laboratory Tests Test 04/28/21 11:54 04/28/21 16:58 04/28/21 20:24 04/29/21 08:01 Glucose (Fingerstick) 172 mg/dL (70-99) 263 mg/dL (70-99) 208 mg/dL (70-99) 213 mg/dL (70-99) Imaging: GES 04/28 One hour is 58% (normal 34.8-91%). Two hours 17% (normal 2.7-60%). Three hours 1% (normal 0.5-28%). Impression: Normal gastric emptying times PE: GEN: NAD - was resting LUNGS: clear anteriorly HEART: RRR ABD: S/ND/NT, G tube NEURO/PSYCH: A & O 3 A/P: COVID recovered G tube in place - taking PO N/v - improved -- Improved GI-kidd. 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 Justicifation of Admission Dx: Justifications for Admission: Justification of Admission Dx: N/A JANELLE MONTENEGRO Apr 29, 2021 10:37
--- NOTE | 2021-04-29 11:07 | NUR ---
Wound/Ostomy Care Wound Type/Assessment: Wound care follow up for buttocks PU stage III, wound continues to heal, there is still some noted eschar and slough that is loose. Dr Ty consulted for bedside debridement. Wound cleansed and assessed. Consent signed, timeout performed. Dr Ty performed selective debridement of eschar and slough. Wound pictured and measured after procedure. No other wounds noted upon complete head to toe assessment. Treatment Recommendations/Plan: Cleanse wound and pat dry Buttocks: Apply honey alginate and cover with foam dressing. Change dressing on Tuesday and Tuesday. Education provided: Pt is alert, educated on POC. Patient encouraged to turn every 2 hours and only lay on back for meals. Pt verbalized understanding of POC. Offloading surface/device: Patient is now repositioning herself and continues to improve. Recommended Referrals/Tests: N/A Discharge Recommendations for dressings: Dressing change instructions left in room. Bed lowered and call light in reach. Wound care will follow up on 05/05/21.
[2021-04-29 11:10] VITALS: BP 137/69
[2021-04-29] MEDS: INSULIN GLARGINE SYRINGE. SQ SCH ×2 (12:06→21:42)
--- NOTE | 2021-04-29 13:13 | PDOC ---
DATE OF SERVICE DATE: 04/29/21 TIME: 13:12 SUBJECTIVE ROS No complaints OBJECTIVE Vital Signs Vital Signs Date Time Temp Pulse Resp B/P (MAP) Pulse Ox O2 Delivery O2 Flow Rate FiO2 04/29/21 11:10 98.9 105 18 137/69 (91) 96 Room Air 98.9 I & 0 Intake and Output 04/29/21 07:00 Intake Total 400 ml Output Total 1950 ml Balance -1550 ml Intake Oral 400 ml Output Urine Total 1950 ml # Voids 1 # Bowel Movements 2 PHYSICAL EXAM Physical Exam GENERAL: NAD , HEENT: Anicteric. . OM moist Neck supple LUNGS: decreased at bases HEART: S1, S2. No murmurs. ABDOMEN: Obese, soft. Bowel sounds present. EXTREMITIES: no cyanosis. Ekrn + DIAGNOSIS/ASSESSMENT Assessment & Plan BOB-ATN- Resolved, probably her baseline renal function now E-Lytes, Resp status stable. Supportive care, avoid nephrotoxins, [place] since hospitalization (> 2 months),Dced yesterday . No concerns per patient . Follow up with us Post dc - routine/Non urgent HypoNatremia - mild , stable DM 2 COVID 19 Pneumonia POA - Unvaccinated Acute Resp Failure- requuired intubation/Trach . Decannulation on 04/24 HTN Anemia -avoid DOYLE 2/2 to Thrombogenic state Family History of ESRD - Per at bedside- Pt's Mom was on dialysis and sister is on Dialysis COMMENT/RELEVANT DATA Meds Current Medications Medications (Trade) Dose Ordered Sig/Pepe Start Time Stop Time Status Last Admin Dose Admin Acetaminophen (Tylenol Supp) 650 mg PRN Q6HRS PRN 02/08/21 01:45 02/17/21 10:45 DC Acetaminophen (Tylenol) 500 mg 1X PRN PRN 03/17/21 13:30 03/18/21 13:29 DC Acetaminophen/ Hydrocodone Bitart (Lortab 10/325) 1 tab PRN Q6HRS PRN 04/26/21 10:30 Acetaminophen/ Hydrocodone Bitart (Lortab 7.5/325) 1 tab PRN Q6HRS PRN 04/26/21 10:30 Albumin Human 200 ml @ 200 mls/hr 1X PRN PRN 04/06/21 08:45 04/06/21 14:44 DC 04/06/21 10:43 200 MLS/HR Albuterol Sulfate (Ventolin Hfa) 60 puff STK-MED ONCE 03/17/21 11:29 03/17/21 11:29 DC Albuterol Sulfate (Ventolin Neb Soln) 2.5 mg PRN Q4HRS PRN 04/19/21 13:00 04/21/21 05:30 2.5 MG Albuterol/ Ipratropium (Duoneb) 3 ml RTQID 04/15/21 10:00 04/25/21 11:31 DC 04/25/21 11:24 3 ML Alteplase, Recombinant (Cathflo For Central Catheter Clearance) 1 mg 1X ONCE 02/27/21 14:30 02/27/21 14:36 DC 02/27/21 15:19 1 MG Alteplase, Recombinant (Cathflo) 2 mg 1X ONCE 02/27/21 11:00 02/27/21 11:01 DC 02/27/21 11:20 2 MG Amlodipine Besylate (Norvasc) 10 mg DAILY 03/31/21 09:00 04/20/21 11:15 DC 04/20/21 08:36 10 MG Atorvastatin Calcium (Lipitor) 40 mg HS 02/08/21 21:00 04/28/21 21:50 40 MG Atropine Sulfate (ATROPINE 0.5mg SYRINGE) 0.5 mg PRN Q5MIN PRN 02/16/21 12:00 Azithromycin 250 mg/Sodium Chloride 250 ml @ 250 mls/hr Q24H 02/14/21 13:30 02/18/21 14:29 DC 02/18/21 11:51 250 MLS/HR Barium Sulfate (Varibar Thin Liquid Apple) 148 gm 1X ONCE 04/17/21 10:00 04/17/21 10:02 DC 04/17/21 11:30 148 GM Benzonatate (Tessalon Perle) 100 mg [id number] 02/10/21 23:30 02/17/21 10:45 DC 02/16/21 22:07 100 MG Bupivacaine HCl/ Epinephrine Bitart (Sensorcain-Epi 0.5% Kit) 30 ml STK-MED ONCE 03/27/21 10:05 03/27/21 10:05 DC 03/27/21 13:12 16 ML Bupivacaine HCl/ Epinephrine Bitart (Sensorcain-Epi 0.5%-1:266194 Mpf) 30 ml STK-MED ONCE 03/17/21 10:47 03/17/21 10:47 DC Carvedilol (Coreg) 6.25 mg [id number] 02/08/21 20:30 02/23/21 15:50 DC 02/23/21 08:06 6.25 MG Cefazolin Sodium/ Dextrose (Ancef 2gm Premix) 2 gm STK-MED ONCE 03/23/21 13:00 03/24/21 11:58 DC Ceftriaxone Sodium (Rocephin) 1 gm Q24H 02/14/21 13:00 02/23/21 07:34 DC 02/22/21 12:42 1 GM Cellulose (Surgicel Fibrillar 1x2) 1 each STK-MED ONCE 03/17/21 10:47 03/17/21 10:47 DC 03/17/21 11:56 1 EACH Daptomycin 480 mg/ Sodium Chloride 50 ml @ 100 mls/hr QMWF 03/23/21 16:00 03/26/21 10:29 DC 03/25/21 19:52 100 MLS/HR Daptomycin 500 mg/ Sodium Chloride 50 ml @ 100 mls/hr Q48H 04/02/21 10:00 04/09/21 10:52 DC 04/08/21 13:14 100 MLS/HR Dexamethasone Sodium Phosphate (Decadron) 2 mg 1X ONCE 02/27/21 09:00 02/26/21 07:15 DC Dexmedetomidine HCl 400 mcg/ Sodium Chloride 100 ml @ 0 mls/hr CONT PRN 02/27/21 09:45 04/16/21 15:07 DC 04/15/21 05:36 0.2 MLS/HR Dextrose (Dextrose 50%-Water Syringe) 12.5 gm PRN Q15MIN PRN 03/01/21 13:00 03/01/21 12:55 12.5 GM Diphenhydramine HCl (Benadryl Oral Elixir) 25 mg PRN Q6HRS PRN 04/20/21 09:45 04/28/21 22:20 25 MG Diphenhydramine HCl (Benadryl) 25 mg 1X PRN PRN 03/17/21 13:30 03/18/21 13:29 DC Docusate Sodium (Colace Solution) 100 mg BID 02/23/21 12:00 04/29/21 09:26 100 MG Docusate Sodium (Colace) 100 mg PRN DAILY PRN 02/07/21 08:45 02/23/21 10:47 DC Enalaprilat (Vasotec Inj) 0.625 mg Q6HRS 02/08/21 16:15 02/09/21 16:01 DC 02/09/21 13:42 0.625 MG Enoxaparin Sodium (Lovenox 30mg Syringe) 30 mg Q24H 03/08/21 09:00 03/12/21 15:38 DC 03/12/21 09:04 30 MG Enoxaparin Sodium (Lovenox 40mg Syringe) 40 mg BID 02/09/21 09:00 03/08/21 13:56 DC 03/08/21 08:26 40 MG Enoxaparin Sodium (Lovenox Per Pharmacy Prophylaxis Dosing) 1 each PRN DAILY PRN 02/09/21 06:45 03/12/21 15:38 DC Ephedrine Sulfate (ePHEDrine PF IN SALINE SYRINGE) 50 mg STK-MED ONCE 03/17/21 10:56 03/17/21 10:56 DC Famotidine (Pepcid Vial) 20 mg DAILY 03/10/21 09:00 04/29/21 09:25 20 MG Fentanyl (Duragesic 25mcg/ Hr Patch) 1 patch Q3DAYS 04/13/21 13:00 04/28/21 08:41 1 PATCH Fentanyl Citrate (Fentanyl 2ml Vial) 100 mcg 1X ONCE 04/13/21 14:00 04/13/21 14:03 DC 04/13/21 13:54 50 MCG Fluconazole/ Sodium Chloride 100 ml @ 100 mls/hr Q24H 03/07/21 09:00 03/17/21 08:03 DC 03/16/21 08:29 100 MLS/HR Fluoxetine HCl (PROzac) 20 mg 1X ONCE 04/10/21 11:15 04/10/21 11:34 DC Furosemide (Lasix) 40 mg 1X ONCE 03/29/21 15:00 03/29/21 15:02 DC 03/29/21 15:22 40 MG Glycerin/ Hypromellose/ Polyethylene (Artificial Tears) 1 drop PRN Q1HR PRN 02/17/21 10:00 04/05/21 08:02 1 DROP Glycopyrrolate (Robinul) 1 mg STK-MED ONCE 03/27/21 14:07 03/27/21 14:07 DC Guaifenesin (Robitussin Dm) 10 ml PRN Q6HRS PRN 02/10/21 23:30 04/23/21 22:12 10 ML Haloperidol Lactate (Haldol Inj) 5 mg Q8HRS 04/01/21 11:30 04/07/21 14:58 DC 04/07/21 05:51 5 MG Heparin Sodium (Porcine) (Heparin Sodium) 5,000 unit Q8HRS 03/13/21 06:00 04/29/21 06:01 5,000 UNIT Hydralazine HCl (Apresoline Inj) 10 mg PRN Q4HRS PRN 02/11/21 12:15 04/22/21 22:29 10 MG Hydromorphone HCl (Dilaudid) 0.5 mg PRN Q10MIN PRN 03/27/21 06:00 03/28/21 05:59 DC Info (CONTRAST GIVEN -- Rx MONITORING) 1 each PRN DAILY PRN 04/13/21 13:45 04/15/21 13:44 DC Info (PHARMACY MONITORING -- do not chart) 1 each PRN DAILY PRN 04/10/21 13:30 Cancel Insulin Glargine (Lantus Syringe) 20 unit BID 04/24/21 21:00 04/29/21 12:06 20 UNIT Insulin Human Lispro (HumaLOG) 15 units 1X ONCE 04/24/21 21:15 04/24/21 21:16 DC 04/24/21 22:14 15 UNITS Insulin Human Regular 100 ml @ 10 mls/hr 1X ONCE 02/07/21 06:30 02/07/21 16:54 DC 02/07/21 09:31 6.5 MLS/HR Insulin Human Regular 100 unit/ Sodium Chloride 101 ml @ 0 mls/hr CONT PRN PRN 02/07/21 06:00 02/07/21 16:54 DC Iohexol (Omnipaque 240 Mg/ml) 50 ml 1X ONCE 04/13/21 13:45 04/13/21 13:46 DC 04/13/21 13:45 28 ML Labetalol HCl (Normodyne Iv Push) 10 mg PRN Q2HR PRN 02/08/21 00:45 04/16/21 19:53 10 MG Lactobacillus Rhamnosus (Culturelle) 1 cap BID 02/16/21 21:00 02/17/21 10:45 DC 02/16/21 22:02 1 CAP Lidocaine HCl (Buffered Lidocaine 1%) 3 ml STK-MED ONCE 03/07/21 13:25 03/07/21 13:25 DC Linezolid (Zyvox) 600 mg BID 03/05/21 09:00 03/12/21 07:00 DC 03/11/21 20:33 600 MG Linezolid/Dextrose 300 ml @ 300 mls/hr Q12HR 04/09/21 12:00 04/11/21 12:54 DC 04/11/21 09:59 300 MLS/HR Lisinopril (Prinivil) 20 mg DAILY 02/17/21 09:00 03/09/21 10:43 DC 02/27/21 09:10 20 MG Lorazepam (Ativan Inj) 1 mg PRN Q2HR PRN 04/10/21 11:15 04/28/21 13:48 1 MG Magnesium Sulfate 50 ml @ 25 mls/hr 1X ONCE 04/17/21 18:00 04/17/21 19:59 DC 04/17/21 17:31 25 MLS/HR Meropenem 1 gm/ Sodium Chloride 100 ml @ 200 mls/hr Q24H 03/18/21 17:00 04/10/21 11:57 DC 04/09/21 17:00 200 MLS/HR Methylprednisolone Sodium Succinate (SOLU-Medrol 125MG VIAL) 80 mg Q8HRS 02/25/21 09:00 02/26/21 07:09 DC 02/26/21 05:52 80 MG Metoclopramide HCl (Reglan Vial) 10 mg PRN Q6HRS PRN 02/08/21 00:45 02/12/21 15:51 10 MG Micafungin Sodium 100 mg/Dextrose 100 ml @ 100 mls/hr Q24H 03/21/21 18:00 03/25/21 10:27 DC 03/24/21 16:36 100 MLS/HR Midazolam HCl (Versed) 2 mg 1X ONCE 04/13/21 14:00 04/13/21 14:03 DC 04/13/21 13:54 2 MG Morphine Sulfate (Morphine Sulfate) 1 mg PRN Q10MIN PRN 03/27/21 06:00 03/28/21 05:59 DC Multi-Ingred Cream/Lotion/Oil/ Oint (Artificial Tears Eye Ointment) 1 reji PRN Q1HR PRN 03/17/21 17:30 03/20/21 15:55 1 REJI Multivitamins/ Minerals Therapeutic (Centrum Multivit-Mineral Liq) 5 ml DAILY 03/14/21 09:00 04/29/21 09:25 5 ML Naloxone HCl (Narcan) 0.4 mg PRN Q2MIN PRN 03/27/21 14:30 Neostigmine [place] (Neostigmine Methylsulfate) 5 mg STK-MED ONCE 03/27/21 14:06 03/27/21 14:07 DC Norepinephrine Bitartrate 8 mg/ Dextrose 258 ml @ 21.711 mls/ hr CONT PRN 03/06/21 13:45 04/15/21 14:14 DC 03/19/21 18:45 23.3 MLS/HR Nystatin (Nystop) 1 reji BID 03/02/21 21:00 04/28/21 21:53 1 REJI Ondansetron HCl (Zofran Odt) 4 mg 1X ONCE 02/06/21 23:30 02/06/21 23:31 DC 02/06/21 23:57 4 MG Ondansetron HCl (Zofran) 4 mg STK-MED ONCE 04/13/21 13:33 04/13/21 13:33 DC Oxycodone/ Acetaminophen (Percocet 5/325) 2 tab PRN Q4HRS PRN 04/19/21 11:45 Phenylephrine HCl (PHENYLEPHRINE in 0.9% NACL PF) 1 mg STK-MED ONCE 03/27/21 13:46 03/27/21 13:46 DC Piperacillin Sod/ Tazobactam Sod (Zosyn Per Pharmacy) 1 each PRN DAILY PRN 02/23/21 07:45 03/17/21 10:04 DC Piperacillin Sod/ Tazobactam Sod 2.25 gm/Sodium Chloride 50 ml @ 100 mls/hr Q8HRS 03/07/21 14:00 03/17/21 08:03 DC 03/17/21 05:58 100 MLS/HR Piperacillin Sod/ Tazobactam Sod 3.375 gm/Sodium Chloride 50 ml @ 100 mls/hr Q6HRS 03/14/21 18:00 Cancel Piperacillin Sod/ Tazobactam Sod 4.5 gm/Sodium Chloride 100 ml @ 200 mls/hr Q6HRS 02/23/21 08:00 03/07/21 08:18 DC 03/07/21 06:12 200 MLS/HR Potassium Bicarbonate (Potassium Effervescent Tablet) 40 meq 1X ONCE 04/16/21 09:00 04/16/21 09:04 DC 04/16/21 09:22 40 MEQ Potassium Chloride/Water 100 ml @ 50 mls/hr Q2HR 04/17/21 18:00 04/17/21 21:59 DC 04/17/21 21:55 50 MLS/HR Potassium Chloride (Klor-Con) 40 meq 1X ONCE 02/13/21 12:00 02/13/21 12:01 DC 02/13/21 13:21 40 MEQ Prochlorperazine Edisylate (Compazine) 5 mg PACU PRN PRN 03/27/21 06:00 03/28/21 05:59 DC Propofol (Diprivan) 200 mg STK-MED ONCE 03/27/21 12:02 03/27/21 12:03 DC Remdesivir 100 mg/ Sodium Chloride 230 ml @ 460 mls/hr Q24H 02/15/21 12:00 02/18/21 12:29 DC 02/18/21 11:52 460 MLS/HR Remdesivir 200 mg/ Sodium Chloride 210 ml @ 210 mls/hr 1X ONCE 02/11/21 13:00 02/12/21 11:55 DC 02/11/21 14:33 210 MLS/HR Ringer's Solution 1,000 ml @ 30 mls/hr Q24H 03/27/21 06:00 03/27/21 17:59 DC Rocuronium [place] (Zemuron) 50 mg STK-MED ONCE 03/27/21 13:16 03/27/21 13:17 DC Sennosides (Senna) 17.2 mg PRN BID PRN 02/07/21 08:45 02/22/21 08:29 17.2 MG Sevoflurane (Ultane) 60 ml STK-MED ONCE 03/27/21 14:19 03/27/21 14:20 DC Sodium Chloride 1,000 ml @ 125 mls/hr 1X ONCE 04/25/21 10:15 04/25/21 18:14 DC 04/25/21 10:15 125 MLS/HR Sodium Chloride (Normal Saline Flush) 3 ml QSHIFT PRN 03/27/21 14:30 Succinylcholine Chloride (Anectine) 200 mg STK-MED ONCE 02/17/21 10:00 02/25/21 08:40 DC Vancomycin HCl (Vanco Per Pharmacy) 1 each PRN DAILY PRN 03/04/21 18:30 03/05/21 08:59 DC 03/04/21 19:47 1 EACH Vancomycin HCl (Vancomycin Trough Level) 1 each 1X ONCE 03/06/21 07:00 03/06/21 07:01 Cancel Vancomycin HCl 1.5 gm/Sodium Chloride 500 ml @ 250 mls/hr Q12H 03/05/21 07:30 03/05/21 08:58 DC Vancomycin HCl 1 gm/Sodium Chloride 250 ml @ 250 mls/hr Q12H 03/04/21 20:00 UNV Vancomycin HCl 2 gm/Sodium Chloride 500 ml @ 250 mls/hr 1X ONCE 03/04/21 19:00 03/04/21 20:59 DC 03/04/21 19:26 250 MLS/HR Vecuronium [place] (Norcuron Bolus) 6 mg PRN Q2HRS PRN 03/06/21 14:30 04/16/21 14:59 DC 03/16/21 10:16 5 MG Vitamin A/Vitamin D (Vitamin A & D Ointment) 1 reji PRN Q1HR PRN 03/10/21 01:45 03/20/21 09:34 1 REJI Zolpidem Tartrate (Ambien) 5 mg PRN QHS PRN 04/10/21 11:15 Lab Laboratory Tests Test 04/28/21 16:58 04/28/21 20:24 04/29/21 06:00 04/29/21 08:01 Glucose (Fingerstick) 263 mg/dL (70-99) 208 mg/dL (70-99) 213 mg/dL (70-99) White Blood Count 11.0 x10^3/uL (4.0-11.0) Red Blood Count 2.99 x10^6/uL (3.50-5.40) Hemoglobin 8.6 g/dL (12.0-15.5) Hematocrit 25.3 % (36.0-47.0) Mean Corpuscular Volume 85 fL (79-100) Mean Corpuscular Hemoglobin 29 pg (25-35) Mean Corpuscular Hemoglobin Concent 34 g/dL (31-37) Red Cell Distribution Width 14.2 % (11.5-14.5) Platelet Count 277 x10^3/uL (140-400) Neutrophils (%) (Auto) 62 % (31-73) Lymphocytes (%) (Auto) 24 % (24-48) Monocytes (%) (Auto) 9 % (0-9) Eosinophils (%) (Auto) 3 % (0-3) Basophils (%) (Auto) 1 % (0-3) Neutrophils # (Auto) 6.9 x10^3/uL (1.8-7.7) Lymphocytes # (Auto) 2.7 x10^3/uL (1.0-4.8) Monocytes # (Auto) 1.0 x10^3/uL (0.0-1.1) Eosinophils # (Auto) 0.4 x10^3/uL (0.0-0.7) Basophils # (Auto) 0.1 x10^3/uL (0.0-0.2) Sodium Level 134 mmol/L (136-145) Potassium Level 4.2 mmol/L (3.5-5.1) Chloride Level 96 mmol/L (98-107) Carbon Dioxide Level 28 mmol/L (21-32) Anion Gap 10 (6-14) Blood Urea Nitrogen 27 mg/dL (7-20) Creatinine 1.8 mg/dL (0.6-1.0) Estimated GFR (Cockcroft-Gault) 30.4 Glucose Level 170 mg/dL (70-99) Calcium Level 9.1 mg/dL (8.5-10.1) Test 04/29/21 11:47 Glucose (Fingerstick) 221 mg/dL (70-99) Results All relevant outside records, renal labs, imaging studies, telemetry/EKG's were reviewed. Justicifation of Admission Dx: Justifications for Admission: Justification of Admission Dx: N/A GIGI CARMEN MD Apr 29, 2021 13:13
[2021-04-29] MEDS: PROCHLORPERAZINE 10 MG/2 ML VIAL. IV PRN ×2 (14:49→21:53)
--- NOTE | 2021-04-29 15:31 | NUR ---
SS following up with discharge planning. SS reviewed pt chart and discussed with pt RN. Pt is currently on room air. COVID19 recovered. PO diet. PT/OT ordered. Pt walker 250 feet with PT today. PT reported that they will work on stairs tomorrow. Anticipate discharge to home by end of the week. SS contacted pt's spouse, Brian, and discussed. Pt's spouse agreeable to plan at this time. Pt's spouse notified that rolling walk can be provided. Referral being sent to [facility], ; fax [phone], for [facility]. SS will continue to follow for discharge planning.
[2021-04-29 15:49] VITALS: BP 140/74
[2021-04-29 18:34] VITALS: BP 132/60
[2021-04-29] MEDS: ATORVASTATIN CALCIUM 40 MG TABLET. PO SCH (21:40)
[2021-04-29] MEDS: diphenhydrAMINE ORAL ELIXIR 12.5 MG/5 ML ML PEG PRN (21:42)
[2021-04-29 22:35] VITALS: BP 132/68
[2021-04-30 02:31] VITALS: BP 174/85
[2021-04-30] MEDS: HEPARIN for SUB-Q USE 5,000 UNIT/ML VIAL. SQ SCH ×3 (06:14→21:00)
[2021-04-30 06:30] VITALS: BP 136/63
[2021-04-30] MEDS ORDERED: SODIUM CHLORIDE 0.65% NASAL SPRAY 45ML BOTTLE. NS PRN (06:30)
[2021-04-30 06:50] LABS: CALCIUM 9.4 mg/dL (8.5-10.1); CREATININE 1.6 mg/dL (0.6-1.0); GFR 34.9; POTASSIUM 4.5 mmol/L (3.5-5.1)
[2021-04-30] MEDS: MULTIVITAMINS,THERAPEUTIC 5 ML ORAL LIQUID. PEG SCH (08:34)
[2021-04-30] MEDS: DOCUSATE 100 MG/10 ML SOLUTION. PO SCH ×2 (08:35→21:00)
[2021-04-30] MEDS: FAMOTIDINE 20 MG/2 ML VIAL IVP SCH (08:35)
[2021-04-30] MEDS: NYSTATIN TOPICAL POWDER 15GM BOTTLE. TP SCH ×2 (08:35→21:04)
[2021-04-30] MEDS: INSULIN LISPRO 300 UNITS/3 ML VIAL. SQ SCH ×4 (08:44→20:59)
[2021-04-30] MEDS: PROCHLORPERAZINE 10 MG/2 ML VIAL. IV PRN ×2 (09:02→17:12)
[2021-04-30] MEDS: INSULIN GLARGINE SYRINGE. SQ SCH ×2 (09:10→20:57)
--- NOTE | 2021-04-30 10:16 | PDOC ---
DATE OF SERVICE DATE: 04/30/21 TIME: 10:16 SUBJECTIVE ROS No complaints OBJECTIVE Vital Signs Vital Signs Date Time Temp Pulse Resp B/P (MAP) Pulse Ox O2 Delivery O2 Flow Rate FiO2 04/30/21 06:30 98.5 103 18 136/63 (87) 100 Room Air 98.5 I & 0 Intake and Output 04/30/21 07:00 Intake Total 200 ml Output Total 1850 ml Balance -1650 ml Intake Oral 200 ml Output Urine Total 1850 ml # Voids 1 # Bowel Movements 1 PHYSICAL EXAM Physical Exam GENERAL: NAD , HEENT: Anicteric. . OM moist Neck supple LUNGS: decreased at bases HEART: S1, S2. No murmurs. ABDOMEN: Obese, soft. Bowel sounds present. EXTREMITIES: no cyanosis. [place] + DIAGNOSIS/ASSESSMENT Assessment & Plan BOB-ATN- Resolved, probably her baseline renal function now E-Lytes, Resp status stable. Supportive care, avoid nephrotoxins, Follow up with us Post dc - routine/Non urgent HypoNatremia - mild , stable DM 2 COVID 19 Pneumonia POA - Unvaccinated Acute Resp Failure- requuired intubation/Trach . Decannulation on 04/24 HTN Anemia -avoid DOYLE 2/2 to Thrombogenic state Family History of ESRD - Per at bedside- Pt's Mom was on dialysis and sister is on Dialysis COMMENT/RELEVANT DATA Meds Current Medications Medications (Trade) Dose Ordered Sig/Pepe Start Time Stop Time Status Last Admin Dose Admin Acetaminophen (Tylenol Supp) 650 mg PRN Q6HRS PRN 02/08/21 01:45 02/17/21 10:45 DC Acetaminophen (Tylenol) 500 mg 1X PRN PRN 03/17/21 13:30 03/18/21 13:29 DC Acetaminophen/ Hydrocodone Bitart (Lortab 10/325) 1 tab PRN Q6HRS PRN 04/26/21 10:30 Acetaminophen/ Hydrocodone Bitart (Lortab 7.5/325) 1 tab PRN Q6HRS PRN 04/26/21 10:30 Albumin Human 200 ml @ 200 mls/hr 1X PRN PRN 04/06/21 08:45 04/06/21 14:44 DC 04/06/21 10:43 200 MLS/HR Albuterol Sulfate (Ventolin Hfa) 60 puff STK-MED ONCE 03/17/21 11:29 03/17/21 11:29 DC Albuterol Sulfate (Ventolin Neb Soln) 2.5 mg PRN Q4HRS PRN 04/19/21 13:00 04/21/21 05:30 2.5 MG Albuterol/ Ipratropium (Duoneb) 3 ml RTQID 04/15/21 10:00 04/25/21 11:31 DC 04/25/21 11:24 3 ML Alteplase, Recombinant (Cathflo For Central Catheter Clearance) 1 mg 1X ONCE 02/27/21 14:30 02/27/21 14:36 DC 02/27/21 15:19 1 MG Alteplase, Recombinant (Cathflo) 2 mg 1X ONCE 02/27/21 11:00 02/27/21 11:01 DC 02/27/21 11:20 2 MG Amlodipine Besylate (Norvasc) 10 mg DAILY 03/31/21 09:00 04/20/21 11:15 DC 04/20/21 08:36 10 MG Atorvastatin Calcium (Lipitor) 40 mg HS 02/08/21 21:00 04/29/21 21:40 40 MG Atropine Sulfate (ATROPINE 0.5mg SYRINGE) 0.5 mg PRN Q5MIN PRN 02/16/21 12:00 Azithromycin 250 mg/Sodium Chloride 250 ml @ 250 mls/hr Q24H 02/14/21 13:30 02/18/21 14:29 DC 02/18/21 11:51 250 MLS/HR Barium Sulfate (Varibar Thin Liquid Apple) 148 gm 1X ONCE 04/17/21 10:00 04/17/21 10:02 DC 04/17/21 11:30 148 GM Benzonatate (Tessalon Perle) 100 mg [id number] 02/10/21 23:30 02/17/21 10:45 DC 02/16/21 22:07 100 MG Bupivacaine HCl/ Epinephrine Bitart (Sensorcain-Epi 0.5% Kit) 30 ml STK-MED ONCE 03/27/21 10:05 03/27/21 10:05 DC 03/27/21 13:12 16 ML Bupivacaine HCl/ Epinephrine Bitart (Sensorcain-Epi 0.5%-1:238752 Mpf) 30 ml STK-MED ONCE 03/17/21 10:47 03/17/21 10:47 DC Carvedilol (Coreg) 6.25 mg [id number] 02/08/21 20:30 02/23/21 15:50 DC 02/23/21 08:06 6.25 MG Cefazolin Sodium/ Dextrose (Ancef 2gm Premix) 2 gm STK-MED ONCE 03/23/21 13:00 03/24/21 11:58 DC Ceftriaxone Sodium (Rocephin) 1 gm Q24H 02/14/21 13:00 02/23/21 07:34 DC 02/22/21 12:42 1 GM Cellulose (Surgicel Fibrillar 1x2) 1 each STK-MED ONCE 03/17/21 10:47 03/17/21 10:47 DC 03/17/21 11:56 1 EACH Daptomycin 480 mg/ Sodium Chloride 50 ml @ 100 mls/hr QMWF 03/23/21 16:00 03/26/21 10:29 DC 03/25/21 19:52 100 MLS/HR Daptomycin 500 mg/ Sodium Chloride 50 ml @ 100 mls/hr Q48H 04/02/21 10:00 04/09/21 10:52 DC 04/08/21 13:14 100 MLS/HR Dexamethasone Sodium Phosphate (Decadron) 2 mg 1X ONCE 02/27/21 09:00 02/26/21 07:15 DC Dexmedetomidine HCl 400 mcg/ Sodium Chloride 100 ml @ 0 mls/hr CONT PRN 02/27/21 09:45 04/16/21 15:07 DC 04/15/21 05:36 0.2 MLS/HR Dextrose (Dextrose 50%-Water Syringe) 12.5 gm PRN Q15MIN PRN 03/01/21 13:00 03/01/21 12:55 12.5 GM Diphenhydramine HCl (Benadryl Oral Elixir) 25 mg PRN Q6HRS PRN 04/20/21 09:45 04/29/21 21:42 25 MG Diphenhydramine HCl (Benadryl) 25 mg 1X PRN PRN 03/17/21 13:30 03/18/21 13:29 DC Docusate Sodium (Colace Solution) 100 mg BID 02/23/21 12:00 04/29/21 21:40 100 MG Docusate Sodium (Colace) 100 mg PRN DAILY PRN 02/07/21 08:45 02/23/21 10:47 DC Enalaprilat (Vasotec Inj) 0.625 mg Q6HRS 02/08/21 16:15 02/09/21 16:01 DC 02/09/21 13:42 0.625 MG Enoxaparin Sodium (Lovenox 30mg Syringe) 30 mg Q24H 03/08/21 09:00 03/12/21 15:38 DC 03/12/21 09:04 30 MG Enoxaparin Sodium (Lovenox 40mg Syringe) 40 mg BID 02/09/21 09:00 03/08/21 13:56 DC 03/08/21 08:26 40 MG Enoxaparin Sodium (Lovenox Per Pharmacy Prophylaxis Dosing) 1 each PRN DAILY PRN 02/09/21 06:45 03/12/21 15:38 DC Ephedrine Sulfate (ePHEDrine PF IN SALINE SYRINGE) 50 mg STK-MED ONCE 03/17/21 10:56 03/17/21 10:56 DC Famotidine (Pepcid Vial) 20 mg DAILY 03/10/21 09:00 04/30/21 08:35 20 MG Fentanyl (Duragesic 25mcg/ Hr Patch) 1 patch Q3DAYS 04/13/21 13:00 04/28/21 08:41 1 PATCH Fentanyl Citrate (Fentanyl 2ml Vial) 100 mcg 1X ONCE 04/13/21 14:00 04/13/21 14:03 DC 04/13/21 13:54 50 MCG Fluconazole/ Sodium Chloride 100 ml @ 100 mls/hr Q24H 03/07/21 09:00 03/17/21 08:03 DC 03/16/21 08:29 100 MLS/HR Fluoxetine HCl (PROzac) 20 mg 1X ONCE 04/10/21 11:15 04/10/21 11:34 DC Furosemide (Lasix) 40 mg 1X ONCE 03/29/21 15:00 03/29/21 15:02 DC 03/29/21 15:22 40 MG Glycerin/ Hypromellose/ Polyethylene (Artificial Tears) 1 drop PRN Q1HR PRN 02/17/21 10:00 04/05/21 08:02 1 DROP Glycopyrrolate (Robinul) 1 mg STK-MED ONCE 03/27/21 14:07 03/27/21 14:07 DC Guaifenesin (Robitussin Dm) 10 ml PRN Q6HRS PRN 02/10/21 23:30 04/23/21 22:12 10 ML Haloperidol Lactate (Haldol Inj) 5 mg Q8HRS 04/01/21 11:30 04/07/21 14:58 DC 04/07/21 05:51 5 MG Heparin Sodium (Porcine) (Heparin Sodium) 5,000 unit Q8HRS 03/13/21 06:00 04/30/21 06:14 5,000 UNIT Hydralazine HCl (Apresoline Inj) 10 mg PRN Q4HRS PRN 02/11/21 12:15 04/22/21 22:29 10 MG Hydromorphone HCl (Dilaudid) 0.5 mg PRN Q10MIN PRN 03/27/21 06:00 03/28/21 05:59 DC Info (CONTRAST GIVEN -- Rx MONITORING) 1 each PRN DAILY PRN 04/13/21 13:45 04/15/21 13:44 DC Info (PHARMACY MONITORING -- do not chart) 1 each PRN DAILY PRN 04/10/21 13:30 Cancel Insulin Glargine (Lantus Syringe) 20 unit BID 04/24/21 21:00 04/30/21 09:10 20 UNIT Insulin Human Lispro (HumaLOG) 15 units 1X ONCE 04/24/21 21:15 04/24/21 21:16 DC 04/24/21 22:14 15 UNITS Insulin Human Regular 100 ml @ 10 mls/hr 1X ONCE 02/07/21 06:30 02/07/21 16:54 DC 02/07/21 09:31 6.5 MLS/HR Insulin Human Regular 100 unit/ Sodium Chloride 101 ml @ 0 mls/hr CONT PRN PRN 02/07/21 06:00 02/07/21 16:54 DC Iohexol (Omnipaque 240 Mg/ml) 50 ml 1X ONCE 04/13/21 13:45 04/13/21 13:46 DC 04/13/21 13:45 28 ML Labetalol HCl (Normodyne Iv Push) 10 mg PRN Q2HR PRN 02/08/21 00:45 04/16/21 19:53 10 MG Lactobacillus Rhamnosus (Culturelle) 1 cap BID 02/16/21 21:00 02/17/21 10:45 DC 02/16/21 22:02 1 CAP Lidocaine HCl (Buffered Lidocaine 1%) 3 ml STK-MED ONCE 03/07/21 13:25 03/07/21 13:25 DC Linezolid (Zyvox) 600 mg BID 03/05/21 09:00 03/12/21 07:00 DC 03/11/21 20:33 600 MG Linezolid/Dextrose 300 ml @ 300 mls/hr Q12HR 04/09/21 12:00 04/11/21 12:54 DC 04/11/21 09:59 300 MLS/HR Lisinopril (Prinivil) 20 mg DAILY 02/17/21 09:00 03/09/21 10:43 DC 02/27/21 09:10 20 MG Lorazepam (Ativan Inj) 1 mg PRN Q2HR PRN 04/10/21 11:15 04/30/21 09:02 1 MG Magnesium Sulfate 50 ml @ 25 mls/hr 1X ONCE 04/17/21 18:00 04/17/21 19:59 DC 04/17/21 17:31 25 MLS/HR Meropenem 1 gm/ Sodium Chloride 100 ml @ 200 mls/hr Q24H 03/18/21 17:00 04/10/21 11:57 DC 04/09/21 17:00 200 MLS/HR Methylprednisolone Sodium Succinate (SOLU-Medrol 125MG VIAL) 80 mg Q8HRS 02/25/21 09:00 02/26/21 07:09 DC 02/26/21 05:52 80 MG Metoclopramide HCl (Reglan Vial) 10 mg PRN Q6HRS PRN 02/08/21 00:45 02/12/21 15:51 10 MG Micafungin Sodium 100 mg/Dextrose 100 ml @ 100 mls/hr Q24H 03/21/21 18:00 03/25/21 10:27 DC 03/24/21 16:36 100 MLS/HR Midazolam HCl (Versed) 2 mg 1X ONCE 04/13/21 14:00 04/13/21 14:03 DC 04/13/21 13:54 2 MG Morphine Sulfate (Morphine Sulfate) 1 mg PRN Q10MIN PRN 03/27/21 06:00 03/28/21 05:59 DC Multi-Ingred Cream/Lotion/Oil/ Oint (Artificial Tears Eye Ointment) 1 reji PRN Q1HR PRN 03/17/21 17:30 03/20/21 15:55 1 REJI Multivitamins/ Minerals Therapeutic (Centrum Multivit-Mineral Liq) 5 ml DAILY 03/14/21 09:00 04/30/21 08:34 5 ML Naloxone HCl (Narcan) 0.4 mg PRN Q2MIN PRN 03/27/21 14:30 Neostigmine [place] (Neostigmine Methylsulfate) 5 mg STK-MED ONCE 03/27/21 14:06 03/27/21 14:07 DC Norepinephrine Bitartrate 8 mg/ Dextrose 258 ml @ 21.711 mls/ hr CONT PRN 03/06/21 13:45 04/15/21 14:14 DC 03/19/21 18:45 23.3 MLS/HR Nystatin (Nystop) 1 reji BID 03/02/21 21:00 04/29/21 21:42 1 REJI Ondansetron HCl (Zofran Odt) 4 mg 1X ONCE 02/06/21 23:30 02/06/21 23:31 DC 02/06/21 23:57 4 MG Ondansetron HCl (Zofran) 4 mg STK-MED ONCE 04/13/21 13:33 04/13/21 13:33 DC Oxycodone/ Acetaminophen (Percocet 5/325) 2 tab PRN Q4HRS PRN 04/19/21 11:45 Phenylephrine HCl (PHENYLEPHRINE in 0.9% NACL PF) 1 mg STK-MED ONCE 03/27/21 13:46 03/27/21 13:46 DC Piperacillin Sod/ Tazobactam Sod (Zosyn Per Pharmacy) 1 each PRN DAILY PRN 02/23/21 07:45 03/17/21 10:04 DC Piperacillin Sod/ Tazobactam Sod 2.25 gm/Sodium Chloride 50 ml @ 100 mls/hr Q8HRS 03/07/21 14:00 03/17/21 08:03 DC 03/17/21 05:58 100 MLS/HR Piperacillin Sod/ Tazobactam Sod 3.375 gm/Sodium Chloride 50 ml @ 100 mls/hr Q6HRS 03/14/21 18:00 Cancel Piperacillin Sod/ Tazobactam Sod 4.5 gm/Sodium Chloride 100 ml @ 200 mls/hr Q6HRS 02/23/21 08:00 03/07/21 08:18 DC 03/07/21 06:12 200 MLS/HR Potassium Bicarbonate (Potassium Effervescent Tablet) 40 meq 1X ONCE 04/16/21 09:00 04/16/21 09:04 DC 04/16/21 09:22 40 MEQ Potassium Chloride/Water 100 ml @ 50 mls/hr Q2HR 04/17/21 18:00 04/17/21 21:59 DC 04/17/21 21:55 50 MLS/HR Potassium Chloride (Klor-Con) 40 meq 1X ONCE 02/13/21 12:00 02/13/21 12:01 DC 02/13/21 13:21 40 MEQ Prochlorperazine Edisylate (Compazine) 5 mg PACU PRN PRN 03/27/21 06:00 03/28/21 05:59 DC Propofol (Diprivan) 200 mg STK-MED ONCE 03/27/21 12:02 03/27/21 12:03 DC Remdesivir 100 mg/ Sodium Chloride 230 ml @ 460 mls/hr Q24H 02/15/21 12:00 02/18/21 12:29 DC 02/18/21 11:52 460 MLS/HR Remdesivir 200 mg/ Sodium Chloride 210 ml @ 210 mls/hr 1X ONCE 02/11/21 13:00 02/12/21 11:55 DC 02/11/21 14:33 210 MLS/HR Ringer's Solution 1,000 ml @ 30 mls/hr Q24H 03/27/21 06:00 03/27/21 17:59 DC Rocuronium [place] (Zemuron) 50 mg STK-MED ONCE 03/27/21 13:16 03/27/21 13:17 DC Sennosides (Senna) 17.2 mg PRN BID PRN 02/07/21 08:45 02/22/21 08:29 17.2 MG Sevoflurane (Ultane) 60 ml STK-MED ONCE 03/27/21 14:19 03/27/21 14:20 DC Sodium Chloride (Normal Saline Flush) 3 ml QSHIFT PRN 03/27/21 14:30 Sodium Chloride (Saline Mist Nasal) 1 reji PRN Q1HR PRN 04/30/21 06:30 04/30/21 06:34 1 REJI Succinylcholine Chloride (Anectine) 200 mg STK-MED ONCE 02/17/21 10:00 02/25/21 08:40 DC Vancomycin HCl (Vanco Per Pharmacy) 1 each PRN DAILY PRN 03/04/21 18:30 03/05/21 08:59 DC 03/04/21 19:47 1 EACH Vancomycin HCl (Vancomycin Trough Level) 1 each 1X ONCE 03/06/21 07:00 03/06/21 07:01 Cancel Vancomycin HCl 1.5 gm/Sodium Chloride 500 ml @ 250 mls/hr Q12H 03/05/21 07:30 03/05/21 08:58 DC Vancomycin HCl 1 gm/Sodium Chloride 250 ml @ 250 mls/hr Q12H 03/04/21 20:00 UNV Vancomycin HCl 2 gm/Sodium Chloride 500 ml @ 250 mls/hr 1X ONCE 03/04/21 19:00 03/04/21 20:59 DC 03/04/21 19:26 250 MLS/HR Vecuronium [place] (Norcuron Bolus) 6 mg PRN Q2HRS PRN 03/06/21 14:30 04/16/21 14:59 DC 03/16/21 10:16 5 MG Vitamin A/Vitamin D (Vitamin A & D Ointment) 1 reji PRN Q1HR PRN 03/10/21 01:45 03/20/21 09:34 1 REJI Zolpidem Tartrate (Ambien) 5 mg PRN QHS PRN 04/10/21 11:15 Lab Laboratory Tests Test 04/29/21 11:47 04/29/21 16:31 04/29/21 20:18 04/30/21 06:00 Glucose (Fingerstick) 221 mg/dL (70-99) 202 mg/dL (70-99) 200 mg/dL (70-99) Sodium Level 134 mmol/L (136-145) Potassium Level 4.5 mmol/L (3.5-5.1) Chloride Level 97 mmol/L (98-107) Carbon Dioxide Level 30 mmol/L (21-32) Anion Gap 7 (6-14) Blood Urea Nitrogen 25 mg/dL (7-20) Creatinine 1.6 mg/dL (0.6-1.0) Estimated GFR (Cockcroft-Gault) 34.9 Glucose Level 181 mg/dL (70-99) Calcium Level 9.4 mg/dL (8.5-10.1) Test 04/30/21 07:44 Glucose (Fingerstick) 190 mg/dL (70-99) Results All relevant outside records, renal labs, imaging studies, telemetry/EKG's were reviewed. Justicifation of Admission Dx: Justifications for Admission: Justification of Admission Dx: N/A GIGI CARMEN MD Apr 30, 2021 10:16
[2021-04-30 10:18] VITALS: BP 132/59
--- NOTE | 2021-04-30 11:18 | PDOC ---
[employer] PROGRESS NOTE Date of Service DOS: DATE: 04/30/21 TIME: 11:10 Chief Complaint Chief Complaint COVID-19 acute hypoxic respiratory failure DKA Hypotension Nausea Vomiting Combined metabolic and respiratory acidosis Acute electrolyte derangementhyponatremia, hypochloremia due to volume deple tion Hyperglycemia BOB due to ATN, requiring dialysis Erythrocytosis Candiduria Sacral decubitus ulcer S/P Trach on (03/17/21) Trach cultures positive for [place] albicans and now acinebacter ursungi History of Present Illness History of Present Illness 04/30: Pt seen and examined Afebrile No acute overnight events noted Resting comfortably at time of exam Slightly tachycardic (~105) Satting 100 on room air Charts reviewed Discussed with RN and SW 04/29: Patient seen and examined at bedside Afebrile Comfortably resting at time of exam Tachycardic (~115) Satting 93 on 2L NC No acute overnight events Charts reviewed DWRN and SW 04/28: Pt examined and seen at bedside Afebrile Tachycardic (~110) Satting well on 2L by NC No acute overnight events noted PT/OT working to get pt strong enough for DC home Pt reports feeling improved Charts reviewed Discussed with RN and high school social science teacher 04/27: Patient seen and examined at bedside Afebrile Tachycardic (~115) On 2L nasal canula Had an episode of emesis x1, otherwise no acute overnight events noted. Per RN, patient is weak, needs further PT/OT evaluation. Patient states she is feeling overall improved. Encouraged PO intake with patient. Charts Reviewed Discussed case with RN and SW. 04/26: Afebrile, tachycardic, on 2 L nasal cannula. S/P decannulation. construction services technician helping to provide patient with Medicaid/disability. Denies any further nausea or vomiting; believes her previous symptoms were secondary to the fluid at this hospital. Complains of sacral pain 01/17. Will provide hydrocodone options, given stated oxycodone allergy. 04/25: Afebrile, breathing on 2 L nasal cannula. Tachycardic. Decannulation yesterday. provided some documentation yesterday to help with Medicaid/disability applications. construction services technician following. 04/24: Afebrile. Had decannulation today, per Dr. Perkins Currently breathing on 8 L nasal cannula. Per GI, if vomiting recurs will consider GES. 04/23: Slightly tachycardic this morning, on trach collar with 8 L. Still with some nausea and vomiting. Reconsult GI with some concerns of possible gastroparesis. Continue to monitor off antibiotics and monitor kidney function. 04/22: No acute events overnight, resting comfortably in bed. Creatinine 2.0 t betsy, EGFR 26.9. She is self-pay and med assist following and waiting spouse to provide information to complete necessary applications. Continue to monitor kidney function and monitor off antibiotics. 04/21: Afebrile, resting comfortably in bed. Kidney function remained stable, creatinine 1.8, eGFR 30.4. I believe plans per nephrology are to remove HD line today. We will continue to monitor off antibiotics. construction services technician working with to help with emergency Medicare. 04/20: Afebrile, breathing on 10 L trach shield. Had some itching today; ordered as needed Benadryl. Kidney function improved and appears to be stable. Per nephrology, possible HD line removal tomorrow. Per ID, will monitor off antibiotics. 04/19 Patient evaluated and examined at bedside. Sugars pretty high today will need more insulin adjustments. On trach collar when I saw her. Continue diet as tolerated. Discussed with at bedside. Diet as tolerated. Working towards discharge. Continue antibiotics. Will ask renal if temporary HD catheter is still needed if not can remove. 04/18 Patient evaluated examined at bedside. She was on trach collar. Continue regular diet as tolerated. Monitoring blood pressure. Working towards discharge. 04/17 Patient evaluated and examined at bedside. She is pretty alert today. Underwent video swallow study earlier and cleared for regular diet with thin liquids. Definite improvement for her. On trach collar when I saw her. Continue current treatments. Watch blood pressure. If she well keep up a consistent amount of p.o. intake may be able to stop tube feeds and PEG tube removal. But this is far down the line. 04/16 Patient seen examined at bedside. Transfer out of the ICU yesterday. Speech therapy to evaluate this morning. Improved notably since I last saw her in the ICU. Continue PEG feeds. Blood pressure treatment. Plan of care discussed wi th bedside RN. 04/15/2021 Patient seen and examined in the ICU She has clean dry intact tracheostomy with trach shield PEG feeds running at 30 cc an hour She really wants to drink water I told her that we are awaiting speech therapy to reevaluate her Chart reviewed Discussed with RN 04/14/2021 Patient seen and examined in the ICU She remains pleasantly confused Has a new PEG in place Discussed with physical therapy Discussed with RN Chart reviewed 04/13/2021 Patient seen and examined in the ICU She is pleasantly confused Sedated with Precedex and fentanyl I discussed with the speech therapist the patient has no laryngeal movement Now she is n.p.o. again Going for new PEG placement in interventional radiology hopefully later today Her trach is clean Chart reviewed Discussed with RN 04/12/2021 Patient seen and examined in the ICU Her is present today and seems to be good support for her Chart reviewed Discussed with RN Still sedated with Precedex and fentanyl but awake 04/11/2021 Patient seen and examined in the ICU She remains quite confused currently sedated Chart reviewed Discussed with RN Had some nausea vomiting last night Pulled out her PEG yesterday Currently on fentanyl and Precedex IV Zyvox hanging 04/10/2021 Patient seen and examined in the ICU She is pleasantly confused Has a trach shield in place Discussed with RN Chart reviewed We are adding in some as needed Ativan and scheduled Prozac Ms Borges is a 46 year old female who presented with nausea/vomiting since 7 AM 02/06/2021 in the morning. Patient stated that her recently tested positive for Covid. She states that he "coughed in my face because he thought it was funny." She reports subjective fevers and chills and nausea/vomiting. Denies sore throat, cough, shortness of breath. No chest pain. Does have some upper abdominal discomfort after vomiting, that she attributes to muscular strain. She was not vaccinated for Covid. 02/08: No acute events overnight. Patient seen and examined bedside and resting comfortably. Continues to complain of nausea not able to tolerate any diet at this time. Saturating 98% on room air. Patient's chart, labs, images were reviewed and discussed with RN 02/09: Afebrile, currently breathing on room air. Still with complaints of nausea and vomiting x3 today. States that she has history of similar symptoms that have been mildly improved with IV Dilaudid. 02/10: Patient febrile today with T-max 102.2 F. She still admits to nausea, denies any further vomiting. We will continue to provide supportive care and monitor for any recurrent fevers overnight. Patient continues to improve may discharge tomorrow to continue self-isolation. 02/11: Febrile overnight, T-max 102.3 F. She did become hypoxic overnight, currently breathing on 4 L nasal cannula. Also admits to associated vomiting or diarrhea overnight. Discussed with RN, will initiate remdesivir and closely monitor LFTs. IV Decadron, and prophylactic antibiotics. 02/12: Low-grade fever overnight, T-max 99.7. Currently breathing on room air. Will discontinue remdesivir, steroids, and antibiotics; will observe overnight. Still with complaints of vomiting x1 and diarrhea. We will continue to provide supportive care and hope to discharge in the next day or so. 02/13: Afebrile. Still complains of intermittent diarrhea. At the time of my evaluation she was breathing on 6 L nasal cannula; this is somewhat misleading as patient states that she did not feel short of breath but was placed on 6 L by nursing staff overnight. 02/14: Afebrile, currently breathing on 8 L nasal cannula. There has been some misleading documentation, chart oxygen this patient is requiring. Discussed with RN, will resume remdesivir to complete total of 5 days. Continue to monitor LFTs. Will add steroids, Rocephin, and azithromycin. 02/15: Afebrile. Became much more hypoxic overnight, requiring BiPAP. At the time of my evaluation she is still breathing on BiPAP. Consultation was placed to pulmonology. Had discussion with Dr. Myrick about initiating Tocilizumab 02/16: No acute events overnight. Patient becoming more hypoxic saturating 94% and requiring BiPAP. Patient will be transferred to the ICU at this time. For worsening clinical status. Discussed with pulmonary. Patient's chart, labs, images were reviewed and discussed with RN 02/17: Transferred to ICU yesterday afternoon. Seen and examined at bedside she remains on 100% FiO2 on BiPAP. Respirations do appear somewhat labored. Suspect intubation may be impending. We will closely monitor. Increase lisinopril to 20 today. 02/18: Patient required intubation yesterday afternoon. Saw and examined this morning. She is intubated and sedated. Increase insulin today. Covid protocol ordered. Wean as tolerated. Plan of care discussed with bedside nurse. 02/19: Bedside. She remains intubated and sedated. Continue Covid protocol. Wean oxygen sedation as tolerated. Pulmonary following. Plan of care discussed with bedside RN. 02/20: Patient seen and examined at bedside. She remains intubated and sedated. No major clinical changes. Continue current treatment. Pulmonary following. Plan of care discussed with bedside RN. 02/21: Patient seen and examined at bedside. Remains intubated and sedated date and admission clinical changes. Increase free water flushes today due to hypernatremia. Plan of care discussed with bedside nurse. 02/22: Patient seen and examined at bedside. O2 requirement actually improving, although remains intubated. Possible SBT in the coming days. Hypernatremia improving. Plan of care discussed bedside RN. 02/23: Patient remains in ICU on ventilator with FiO2 100%, PEEP 7. Repeat chest x-ray yesterday showed diffuse bilateral pulmonary opacities with no interval improvement. Will discontinue Rocephin and initiate Zosyn. We will continue IV steroids for a full 10-day course 02/24: Afebrile. On vent with FiO2 40%, PEEP 6. Her Coreg has been held due to persistent bradycardia. No documented history of systolic heart failure or previous echocardiogram. Will need to obtain echocardiogram prior to discharge. Continue IV steroids and antibiotics. 02/25: Afebrile. Remains ventilated with FiO2 45%, PEEP 6. Chest x-ray today showed slight improvement of the pulmonary infiltrates, no pneumothorax. Completed 10-day course of IV Decadron. Will initiate slow Solu-Medrol taper. Continue IV Zosyn. Continue supportive care. 02/26: Afebrile. On vent with FiO2 45%, PEEP 6. Completed 10 days of IV Dec adron. Will continue IV Zosyn. Continue supportive care. Critical care time 30 minutes spent reviewing charts, reviewing imaging, reviewing labs, discussion with RN. 02/27: Afebrile. On vent with FiO2 45%, PEEP 6. Completed 10 days of steroids and completed remdesivir. Continue with IV Zosyn. CPAP trial yesterday. Continue NG tube and supportive care. 02/28:. Patient remains on vent with FiO2 40%, PEEP 5. Afebrile. Completed steroids and remdesivir. Some noted hypoglycemia overnight, will de-escalate basal insulin. Continue IV Zosyn. Ventilator management per pulmonology. Continue NG tube and supportive care. 03/01: On vent with FiO2 40%, PEEP 5. Afebrile. Completed steroids and remdesivir. Blood glucose well controlled. Continue empiric antibiotics with Zosyn. Ventilator management per pulmonology. Continue NG tube and supportive care. 03/02: No acute events overnight. Patient hypotensive the morning due to oversedation. Will wean off sedation and keep antihypertensive medications on board. Currently saturating 100% on vent settings of 18/450/40/5. Will attempt spontaneous breathing trial today to see how patient does. 03/03: No acute events overnight. Patient saturating 98% on vent settings of 18/450/40/5. Will defer spontaneous breathing trials to pulmonary at this time. Patient's chart, labs, images were reviewed and discussed with RN 8: No acute events overnight. Patient saturating 9 9% on vent settings of 18/450/30/5. Patient currently is unable to tolerate weaning. Per pulmonary. Patient's chart, labs, images were reviewed and discussed with RN 8: No acute events overnight. Patient is saturating 97% on vent settings of 18/450/55/5. Her FiO2 needs to be increased due to abnormal ABG with 7.3 //24. Patient's chart, labs, images were reviewed and discussed with RN 8: No acute events overnight. Patient saturating 94% on vent settings of 18/450/55/5. Chest x-ray showing increase in pulmonary infiltrates. Wound care is consulted for decubitus ulcer patient's chart, labs, images were reviewed and discussed with RN 8: No acute events overnight. Patient saturating 94% on vent settings of 20/450/70/8. Patient now heading into renal failure with her creatinine bumped up from 1.5-4.2. Decreased urine output. Plan for hemodialysis today and temporary catheter placement and nephrology is consulted. 03/08: No acute events overnight. Patient did have a nausea vomiting episode and tube feeds were held. KUB repeat shows NG tube still in the stomach. Will resume tube feeds at trickle and advance to goal today. Will start hemodialysis soon. 03/09: Seen on vent 20/450/60%/8. ABG 7.2 WBC 11.4, Hb 7.4, platelets 188, NA 131, K4.9, BUN 48, CR 51, glucose 199, phosphorus 7.9, mag 2.2, AST 265 ALT 219, albumin 1.1. Chest radiograph appears unchanged from prior. Dialysis x1 today 03/10: Afebrile. Seen on vent, 20/450/60/7 with ABG 7.3 . Tolerated dialysis well on 03/09. LFTs similar. 03/11: Afebrile. Seen on vent, sedated. Still requiring Levophed for BP support. WBC 16.7, Hb 8.1, NA 130, ABG 7.3 on 55% FiO2 PEEP 6. On Zosyn and Zyvox Diflucan. Dialysis today 03/12: Afebrile. Still requiring Levophed for BP support sedated with Versed febrile Precedex. WBC 16.1, Hb 8.5, platelets 185, NA 133. Trach plan tentative ly 03/17. O2 saturations 93% on 50% FiO2 PEEP 6. ABG 7.38/ On Zosyn and Zyvox Diflucan. 03/13: Afebrile. Still on Levophed for BP support lightly sedated. 7. on 45% FiO2. Plan for dialysis today. On Zosyn and Zyvox Diflucan. More swollen today. 03/14: Afebrile. Weaning down off Levophed. WBC 14.9 NA 132. O2 saturations 92% on 45% FiO2 PEEP 5. Afebrile. O2 saturations 91% on FiO2 45% PEEP 6. Continued on Zosyn and Zyvox Diflucan. Tentative trach planned 03/17/2021 CC time 31 minutes 03/16/21: Patient seen and examined in ICU. Periorbital as well as upper and lower extremity edema noted. OG feed running at 30cc/hr. Still on vent on pressure control with a rate of 24 with 45% FiO2. Patient has rectal bag. Currently she has 98% O2 sat. Currently sedated with Dexmedetomidine, Propofol, Versed, and Fentanyl. Discussed with RN. Chart reviewed. 03/17/21: Patient was seen and examined in the ICU today. Periorbital edema as well as abdominal and mons pubis edema was noted. Patient still on vent on pressure control with Fi02 of 45% plus 6 PEEP. Patient had rectal bag. Currently sedated on Dexmedetomidine, Propofol, Versed, and Fentanyl. Discussed with RN. Chart reviewed. 03/18/21: Patient seen and examined in ICU. On vent via trach that was placed yesterday. Vent settings are Pressure Control of 40 with FiO2 of 45% and 6 PEEP. Trach clean and dry. Orbital swelling still present. Pupils are sluggish. Patient on TPN running at 30cc/hr. Kern to bedside and rectal bag in place. Current O2 sat at 94%. Sedated on Dexmedetomidine, Propofol, Versed, and Fentanyl. Discussed with RN. Chart reviewed. 03/19/21: Patient was seen and examined in the ICU today. Currently on vent via trach on pressure control of 42, rate of 24, FiO2 of 45%, and 6 PEEP. O2 sat is at 97% while patient is being examined. Trach is clean and dry. PICC line is in place on right arm. Periorbital swelling has decreased slightly since examined yesterday. Patient is sedated on Dexmedetomidine, Propofol, Versed, and Fentanyl. Discussed with RN. Chart reviewed. 03/20/21: Patient seen and examined in the ICU. Periorbital edema is slightly decreased since yesterday. O2 sat while being examined was 93%. NG tube in place and running at 30cc/hr. Patient on vent via trach on pressure control of 40 with FiO2 of 45 and rate of 24. Sedated on Dexmedetomidine, Propofol, Versed, and Fentanyl. PICC line in place. Kern to bedside. Rectal bag present. Discussed with RN. Chart reviewed. 03/21/21: Patient was seen and examined in the ICU today. She was semi-sedated.. She was on Dexmedetomidine and Fentanyl. We are holding the Propofol. Her eyes were periodically open but she was not making meaningful eye contact or tracking. On vent via trach with pressure control of 40 and FiO2 at 45. Rate was 24. PEEP was 5. Trach was clean and dry. While being examined, her O2 sat was 94%. Rectal bag and Kern to bedside in place. NG tube in place and feeding at 30cc/hr. IV fluids still running. Levophed has been stopped. Discussed with RN. Chart reviewed. 03/22/21: Patient was seen and examined in the ICU. She was semi-sedated on Propofol and Dexmedetomidine. Her eyes were open but she did not make meaningful eye contact. Her blood pressure was elevated (198/102) while being examined and she had just been given hydralazine to lower it. There are plans to place a PEG tube tomorrow. Currently on vent via trach on pressure control of 40 with FiO2 of 45%, 5 PEEP, and a rate of 24. Current O2 sat is 98%. She is feeding through an NG tube at 30cc/hr. Rectal bag and Kern to bedside present. SCDs on patient for DVT prophylaxis. She did not do her daily dialysis today but the plan is to start back on that tomorrow. Discussed with RN. Chart reviewed. 03/23/2021: Patient remains in ICU on ventilator. FiO2 40%, PEEP 5. Trach cultures positive for [place] albicans and acinebacter ursungi. We will continue treatment with IV antibiotics and micafungin, per ID. HD per nephrology. Plans for PEG tube placement today. 30 minutes critical care time was spent reviewing charts, reviewing labs, reviewing imaging, discussion with RN. 03/24/2021: Afebrile. On vent with FiO2 45%, PEEP 5. Had attempted PEG placement per GI yesterday, but unable to locate safe path for PEG; will consider surgical opinion. Once PEG is in place she should be stable for LTAC transfer when accepted. Continue antibiotics, per ID. 30 minutes critical care time was spent reviewing charts, reviewing labs, reviewing imaging, discussion with RN. 03/25/2021: Febrile overnight with T-max 101.5 F. On vent with FiO2 45%, PEEP 5. Surgery has been consulted with tentative plans for laparoscopic versus open gastrostomy placement tomorrow. Trach cultures positive for [place] albicans and now acinebacter ursungi; will continue antibiotic management, per ID. Hemod ialysis, per nephrology. Patient needing LTAC placement, but currently without benefits. nail mill worker following for discharge planning. Critical care time 30 minutes spent reviewing charts, reviewing labs, reviewing imaging, discussion with RN. 03/26/2021: Febrile today with T-max 100.5 F. Awake on vent with FiO2 45%, PEEP 5. When I ask if she remembers any she nods. G-tube placement scheduled for tomorrow, per general surgery. Chest x-ray today showed slight interval increase in diffuse infiltrate. Continue antibiotic management, per ID. Hemodialysis per nephrology. Reportedly did not tolerate CPAP trial this morning. nail mill worker following for LTAC placement. Critical care time 30 minutes spent reviewing charts, reviewing labs, reviewing imaging, discussion with RN. 03/27/2021: On vent with FiO2 45%, PEEP 5. Afebrile today. Continue treatment of acute renal failure requiring HD, per nephrology. Monitor kidney function for recovery. G-tube placement scheduled for today, per general surgery. Likely LTAC placement soon, but this is been a difficult as she is self-pay without benefits; high school social science teacher following. Critical care time 30 minutes spent reviewing charts, reviewing labs, reviewing imaging, discussion with RN. 03/28/2021: Afebrile. On vent with FiO2 40%, PEEP 5. Had laparoscopic gastrostomy tube placed yesterday, per general surgery. Continue treatment of acute renal failure requiring HD, per nephrology. Continue IV antibiotics, per ID. Likely LTAC placement soon, but this is been a difficult as she is self-pay without benefits; high school social science teacher following. Critical care time 30 minutes spent reviewing charts, reviewing labs, reviewing imaging, discussion with RN. 03/29/2021: Afebrile. On vent with FiO2 45%, PEEP 5. S/P laparoscopic gastrostomy tube; tube feeds running. HD, per nephrology. Continue meropenem, per ID. Anticipate LTAC placement soon now that PEG has being placed; high school social science teacher helping in these regards. Critical care time 30 minutes spent reviewing charts, reviewing labs, reviewing imaging, discussion with RN. 03/30 No major events or clinical changes overnight. Patient evaluated at bedside this morning on trach and G-tube. Tolerating these well. Has been working on insurance for patient for placement as she will need long-term care. Guarded prognosis. Plan of care discussed with bedside nurse. 03/31 No major clinical changes. Remains trached. Sedated. Continue current plan. 04/01 No changes. Patient resting in bed when evaluated sedated. is supposed to be working on insurance for placement for the patient. Otherwise no changes. 04/02 Patient febrile overnight, daptomycin added this morning per infectious disease. Otherwise no major clinical changes. Awaiting insurance. Infectious disease, pulmonary and renal following. Plan of care discussed with bedside RN. 04/03 Patient undergoing dialysis today. Evaluated at bedside this morning. otherwise continue current plan. supposed working on insurance. 04/04 No major overnight changes. Continue current plan. 04/05 Patient notably more movement this morning eyes open resting in bed otherwise no major changes. Continue current plan. Insurance pending. 04/06 Patient notably more movement this morning eyes open resting in bed current plan. Insurance pending. Continue daptomycin, renal dosing April 02 F/U Blood culture UA urine culture C. diff PCR negative 32 min cc time 04/07 Patient notably more movement this morning eyes open resting in bed current plan. Insurance pending. Continue daptomycin, renal dosing April 02 F/U Blood culture UA urine culture C. diff PCR negative Abnormal chest x-ray consistent with COVID-19 viral pneumonia. Diabetic ketoacidosis--resolved obesity contributing to hypoxia as well. BOB . hemodialysis started 03/07 DVT GI prophylaxis Nutritional support 34 min cc time 04/08 Patient notably more movement this morning eyes open resting in bed current plan. Insurance pending. Continue daptomycin, renal dosing April 02 F/U Blood culture UA urine culture C. diff PCR negative s/p lap G-tube 03/27 Abnormal chest x-ray consistent with COVID-19 viral pneumonia. Diabetic ketoacidosis--resolved obesity contributing to hypoxia as well. BOB . hemodialysis started 03/07 DVT GI prophylaxis Nutritional support Right PICC line February 14; left PICC line 04/07/2021 Right IJ HDC clean March 07 32 min cc time 04/09 non Oliguric for past 11/2 -2 weeks , good response to IV NS bolus .requiring dialysis., currently on MWF schedule, tolerating trach shield well.using her speaking valve./ resting in bed current / states she feels better Start iv Zyvox Cont Meropenem DC daptomycin post PICC line exchange aspiration precautions C. diff PCR negative F/U Blood culture UA urine culture s/p lap G-tube 03/27 Abnormal chest x-ray consistent with COVID-19 viral pneumonia. Diabetic ketoacidosis--resolved obesity contributing to hypoxia as well. BOB . hemodialysis started 03/07 DVT GI prophylaxis Nutritional support Right PICC line February 14 out; left PICC line 04/07/2021 Right IJ HDC clean March 07 34 min cc time Vitals/I&O Vitals/I&O: Vital Signs Date Time Temp Pulse Resp B/P (MAP) Pulse Ox O2 Delivery O2 Flow Rate FiO2 04/30/21 10:18 98.9 105 18 132/59 (83) 97 Room Air 98.9 I & O 04/29/21 04/29/21 04/30/21 15:00 23:00 07:00 Intake Total 200 ml Output Total 1850 ml Balance -1650 ml Physical Exam Physical Exam: GENERAL: No acute distress, comfortably resting, AAOx3, pleasant. HEENT: Normocephalic, atraumatic. Anicteric. Neck right IJ HDC clean Trach + capped LUNGS: Decreased breath sounds otherwise clear HEART: S1, S2. No murmurs. ABDOMEN: Obese, soft. Bowel sounds present. Nontender, nondistended. PEG tube pulled out by patient EXTREMITIES: Edema present no cyanosis. CENTRAL NERVOUS SYSTEM: CN II-XII intact, No FND. PSYCHIATRIC: AAOx3, pleasant. Derm has pressure wounds wound pictures noted in chart. Generalized rash, Right PICC line removed; left PICC line 04/07/2021 Right IJ HDC clean March 07 General: Alert, Oriented X3, Cooperative, No acute distress Heart: Normal S1, Normal S2, Other (Tachycardic) Lungs: Crackles Abdomen: Normal bowel sounds, Soft, Other (ND) Extremities: No cyanosis, Other (ANASARCA) Skin: No rashes, No significant lesion Labs Labs: Laboratory Tests Test 04/29/21 11:47 04/29/21 16:31 04/29/21 20:18 04/30/21 06:00 Glucose (Fingerstick) 221 mg/dL (70-99) 202 mg/dL (70-99) 200 mg/dL (70-99) Sodium Level 134 mmol/L (136-145) Potassium Level 4.5 mmol/L (3.5-5.1) Chloride Level 97 mmol/L (98-107) Carbon Dioxide Level 30 mmol/L (21-32) Anion Gap 7 (6-14) Blood Urea Nitrogen 25 mg/dL (7-20) Creatinine 1.6 mg/dL (0.6-1.0) Estimated GFR (Cockcroft-Gault) 34.9 Glucose Level 181 mg/dL (70-99) Calcium Level 9.4 mg/dL (8.5-10.1) Test 04/30/21 07:44 Glucose (Fingerstick) 190 mg/dL (70-99) Review of Systems Review of Systems: ROS negative Assessment and Plan Assessmemt and Plan Problems Medical Problems: (1) Ketoacidosis Status: Acute COVID-19 acute hypoxic respiratory failure DKA Hypotension Nausea Vomiting Combined metabolic and respiratory acidosis Acute electrolyte derangementhyponatremia, hypochloremia due to volume depletion Hyperglycemia BOB due to ATN, requiring dialysis Erythrocytosis Candiduria Sacral decubitus ulcer S/P Trach on (03/17/21) Trach cultures positive for [place] albicans and now acinebacter ursungi Plan Discharge home at end of week with [facility] per PT Erlin [facility] Continue home meds Continue to encourage PO intake DVT Prophylaxis- Heparin Disposition: [facility] with [facility] (1-2 days) Full Code Comment Review of Relevant I have reviewed the following items mazin (where applicable) has been applied. Medications: Current Medications Medications (Trade) Dose Ordered Sig/Pepe Route PRN Reason Start Time Stop Time Status Last Admin Dose Admin Sodium Chloride (Saline Mist Nasal) 1 reji PRN Q1HR PRN NS NASAL CONGESTION 04/30/21 06:30 04/30/21 06:34 Justifications for Admission Other Justification DIANELYS BLACKMON III DO Apr 30, 2021 11:18
--- NOTE | 2021-04-30 12:57 | NUR ---
SS following up with discharge planning. SS reviewed pt chart and discussed with pt RN. Pt is currently on room air. COVID19 recovered. PO diet. PT/OT ordered. Pt walked 250 feet with PT yesterday. PT to work on stairs today. Anticipate discharge to home by end of the week. Pt's spouse notified. Referral phoned and faxed to [facility], ; fax [phone], for [facility]. SS will continue to follow for discharge planning.
[2021-04-30 14:30] VITALS: BP 136/67
--- NOTE | 2021-04-30 14:34 | PDOC ---
G I PROGRESS NOTE Subjective No GI complaints today. Apparently nausea and small emesis(?) yesterday. Objective Still in IV famotidine and no PPI. Physical Exam Lungs clear anteriorly. RRR Abdomen obese, not tender. G-tube present. Review of Relevant I have reviewed the following items mazin (where applicable) has been applied. Labs Laboratory Tests Test 04/28/21 16:58 04/28/21 20:24 04/29/21 06:00 04/29/21 08:01 Glucose (Fingerstick) 263 mg/dL (70-99) 208 mg/dL (70-99) 213 mg/dL (70-99) White Blood Count 11.0 x10^3/uL (4.0-11.0) Red Blood Count 2.99 x10^6/uL (3.50-5.40) Hemoglobin 8.6 g/dL (12.0-15.5) Hematocrit 25.3 % (36.0-47.0) Mean Corpuscular Volume 85 fL (79-100) Mean Corpuscular Hemoglobin 29 pg (25-35) Mean Corpuscular Hemoglobin Concent 34 g/dL (31-37) Red Cell Distribution Width 14.2 % (11.5-14.5) Platelet Count 277 x10^3/uL (140-400) Neutrophils (%) (Auto) 62 % (31-73) Lymphocytes (%) (Auto) 24 % (24-48) Monocytes (%) (Auto) 9 % (0-9) Eosinophils (%) (Auto) 3 % (0-3) Basophils (%) (Auto) 1 % (0-3) Neutrophils # (Auto) 6.9 x10^3/uL (1.8-7.7) Lymphocytes # (Auto) 2.7 x10^3/uL (1.0-4.8) Monocytes # (Auto) 1.0 x10^3/uL (0.0-1.1) Eosinophils # (Auto) 0.4 x10^3/uL (0.0-0.7) Basophils # (Auto) 0.1 x10^3/uL (0.0-0.2) Sodium Level 134 mmol/L (136-145) Potassium Level 4.2 mmol/L (3.5-5.1) Chloride Level 96 mmol/L (98-107) Carbon Dioxide Level 28 mmol/L (21-32) Anion Gap 10 (6-14) Blood Urea Nitrogen 27 mg/dL (7-20) Creatinine 1.8 mg/dL (0.6-1.0) Estimated GFR (Cockcroft-Gault) 30.4 Glucose Level 170 mg/dL (70-99) Calcium Level 9.1 mg/dL (8.5-10.1) Test 04/29/21 11:47 04/29/21 16:31 04/29/21 20:18 04/30/21 06:00 Glucose (Fingerstick) 221 mg/dL (70-99) 202 mg/dL (70-99) 200 mg/dL (70-99) Sodium Level 134 mmol/L (136-145) Potassium Level 4.5 mmol/L (3.5-5.1) Chloride Level 97 mmol/L (98-107) Carbon Dioxide Level 30 mmol/L (21-32) Anion Gap 7 (6-14) Blood Urea Nitrogen 25 mg/dL (7-20) Creatinine 1.6 mg/dL (0.6-1.0) Estimated GFR (Cockcroft-Gault) 34.9 Glucose Level 181 mg/dL (70-99) Calcium Level 9.4 mg/dL (8.5-10.1) Test 04/30/21 07:44 04/30/21 11:49 Glucose (Fingerstick) 190 mg/dL (70-99) 232 mg/dL (70-99) Laboratory Tests Test 04/29/21 16:31 04/29/21 20:18 04/30/21 06:00 04/30/21 07:44 Glucose (Fingerstick) 202 mg/dL (70-99) 200 mg/dL (70-99) 190 mg/dL (70-99) Sodium Level 134 mmol/L (136-145) Potassium Level 4.5 mmol/L (3.5-5.1) Chloride Level 97 mmol/L (98-107) Carbon Dioxide Level 30 mmol/L (21-32) Anion Gap 7 (6-14) Blood Urea Nitrogen 25 mg/dL (7-20) Creatinine 1.6 mg/dL (0.6-1.0) Estimated GFR (Cockcroft-Gault) 34.9 Glucose Level 181 mg/dL (70-99) Calcium Level 9.4 mg/dL (8.5-10.1) Test 04/30/21 11:49 Glucose (Fingerstick) 232 mg/dL (70-99) Microbiology 04/02/21 Urine Culture - Final, Complete 04/02/21 Blood Culture - Final, Complete NO GROWTH AFTER 5 DAYS 03/16/21 Gram Stain Evaluation - Final, Complete 03/16/21 Respiratory Culture - Final, Complete 03/16/21 Antimicrobic Susceptibility - Final, Complete Vitals/I & O Vital Sign - Last 24 Hours 04/29/21 04/29/21 04/29/21 04/29/21 15:49 18:34 19:50 22:35 Temp 98.7 99.0 98.8 98.7 99.0 98.8 Pulse 110 104 109 Resp 18 16 19 B/P (MAP) 140/74 (96) 132/60 (84) 132/68 (89) Pulse Ox 97 96 98 O2 Delivery Room Air Room Air Room Air Room Air 04/30/21 04/30/21 04/30/21 04/30/21 02:31 06:30 08:00 10:18 Temp 98.7 98.5 98.9 98.7 98.5 98.9 Pulse 105 103 105 Resp 18 18 18 B/P (MAP) 174/85 (114) 136/63 (87) 132/59 (83) Pulse Ox 99 100 97 O2 Delivery Room Air Room Air Room Air Room Air Intake and Output 04/29/21 04/29/21 04/30/21 15:00 23:00 07:00 Intake Total 200 ml Output Total 1850 ml Balance -1650 ml Problem List Problems Medical Problems: (1) Ketoacidosis Status: Acute Assessment NERD? Plan of Care Note Famotidine-->Protonix. Observe on this. Justicifation of Admission Dx: Justifications for Admission: Justification of Admission Dx: N/A GERALD WU MD Apr 30, 2021 14:34
[2021-04-30 18:13] VITALS: BP 131/65
[2021-04-30] MEDS: ATORVASTATIN CALCIUM 40 MG TABLET. PO SCH (21:01)
[2021-04-30] MEDS: ONDANSETRON PF 4 MG/2 ML VIAL. IVP PRN (22:25)
[2021-04-30 22:51] VITALS: BP 139/73
[2021-05-01 03:20] VITALS: BP 146/72
[2021-05-01] MEDS: ACETAMINOPHEN 650 MG/20.3 ML SOLUTION. PEG PRN (05:56)
[2021-05-01] MEDS: HEPARIN for SUB-Q USE 5,000 UNIT/ML VIAL. SQ SCH (06:23)
[2021-05-01 07:30] VITALS: BP 171/79
[2021-05-01] MEDS ORDERED: PANTOPRAZOLE 40 MG TABLET.DR. PO SCH (07:30)
[2021-05-01] MEDS: INSULIN LISPRO 300 UNITS/3 ML VIAL. SQ SCH ×3 (07:30→17:29)
[2021-05-01] MEDS: PROCHLORPERAZINE 10 MG/2 ML VIAL. IV PRN (08:31)
[2021-05-01] MEDS: fentaNYL 25MCG/HR PATCH 1 PATCH PATCH.TD72 TD SCH (08:32)
[2021-05-01] MEDS: NYSTATIN TOPICAL POWDER 15GM BOTTLE. TP SCH (08:34)
[2021-05-01] MEDS: INSULIN GLARGINE SYRINGE. SQ SCH (08:47)
[2021-05-01] MEDS: DOCUSATE 100 MG/10 ML SOLUTION. PO SCH (08:49)
[2021-05-01] MEDS: MULTIVITAMINS,THERAPEUTIC 5 ML ORAL LIQUID. PEG SCH (08:49)
[2021-05-01 08:50] LABS: BASO # 0.1 x10^3/uL (0.0-0.2); BASO % 1 % (0-3); CALCIUM 9.3 mg/dL (8.5-10.1); CREATININE 1.5 mg/dL (0.6-1.0); EOS # 0.2 x10^3/uL (0.0-0.7); EOS % 3 % (0-3); GFR 37.6; HEMATOCRIT 27.6 % (36.0-47.0); HEMOGLOBIN 9.3 g/dL (12.0-15.5); LYMPH # 2.9 x10^3/uL (1.0-4.8); LYMPH % 31 % (24-48); MEAN CORPUSCULAR HEMOGLOBIN 29 pg (25-35); MEAN CORPUSCULAR HGB CONC 34 g/dL (31-37); MEAN CORPUSCULAR VOLUME 86 fL (79-100); MONO # 0.7 x10^3/uL (0.0-1.1); MONO % 7 % (0-9); NEUT # 5.6 x10^3/uL (1.8-7.7); NEUT % 59 % (31-73); PLATELET COUNT 290 x10^3/uL (140-400); POTASSIUM 4.2 mmol/L (3.5-5.1); RED BLOOD COUNT 3.21 x10^6/uL (3.50-5.40); RED CELL DISTRIBUTION WIDTH 14.3 % (11.5-14.5); WHITE BLOOD COUNT 9.5 x10^3/uL (4.0-11.0)
[2021-05-01] MEDS: ONDANSETRON PF 4 MG/2 ML VIAL. IVP PRN (09:58)
--- NOTE | 2021-05-01 10:47 | PDOC ---
[employer] PROGRESS NOTE Date of Service DOS: DATE: 05/01/21 TIME: 10:42 Chief Complaint Chief Complaint COVID-19 acute hypoxic respiratory failure DKA Hypotension Nausea Vomiting Combined metabolic and respiratory acidosis Acute electrolyte derangementhyponatremia, hypochloremia due to volume deple tion Hyperglycemia BOB due to ATN, requiring dialysis Erythrocytosis Candiduria Sacral decubitus ulcer S/P Trach on (03/17/21) Trach cultures positive for [place] albicans and now acinebacter ursungi History of Present Illness History of Present Illness 05/01: Patient examined and seen at bedside afebrile tachycardic (~115) and elevated BP (171/79) noted Pt complaining of nausea, and small emesis x1. Satting 96 room air Charts reviewed Case discussed with RN and KIRBY 04/30: Pt seen and examined Afebrile No acute overnight events noted Resting comfortably at time of exam Slightly tachycardic (~105) Satting 100 on room air Charts reviewed Discussed with RN and KIRBY 04/29: Patient seen and examined at bedside Afebrile Comfortably resting at time of exam Tachycardic (~115) Satting 93 on 2L NC No acute overnight events Charts reviewed DWRN and KIRBY 04/28: Pt examined and seen at bedside Afebrile Tachycardic (~110) Satting well on 2L by NC No acute overnight events noted PT/OT working to get pt strong enough for DC home Pt reports feeling improved Charts reviewed Discussed with RN and community mental health social worker 04/27: Patient seen and examined at bedside Afebrile Tachycardic (~115) On 2L nasal canula Had an episode of emesis x1, otherwise no acute overnight events noted. Per RN, patient is weak, needs further PT/OT evaluation. Patient states she is feeling overall improved. Encouraged PO intake with patient. Charts Reviewed Discussed case with RN and SW. 04/26: Afebrile, tachycardic, on 2 L nasal cannula. S/P decannulation. bibliographic services specialist helping to provide patient with Medicaid/disability. Denies any further nausea or vomiting; believes her previous symptoms were secondary to the fluid at this hospital. Complains of sacral pain 01/17. Will provide hydrocodone options, given stated oxycodone allergy. 04/25: Afebrile, breathing on 2 L nasal cannula. Tachycardic. Decannulation yesterday. provided some documentation yesterday to help with Medicaid/disability applications. bibliographic services specialist following. 04/24: Afebrile. Had decannulation today, per Dr. Perkins Currently breathing on 8 L nasal cannula. Per GI, if vomiting recurs will consider GES. 04/23: Slightly tachycardic this morning, on trach collar with 8 L. Still with some nausea and vomiting. Reconsult GI with some concerns of possible gastroparesis. Continue to monitor off antibiotics and monitor kidney function. 04/22: No acute events overnight, resting comfortably in bed. Creatinine 2.0 today, EGFR 26.9. She is self-pay and med assist following and waiting spouse to provide information to complete necessary applications. Continue to monitor kidney function and monitor off antibiotics. 04/21: Afebrile, resting comfortably in bed. Kidney function remained stable, creatinine 1.8, eGFR 30.4. I believe plans per nephrology are to remove HD line today. We will continue to monitor off antibiotics. bibliographic services specialist working with to help with emergency Medicare. 04/20: Afebrile, breathing on 10 L trach shield. Had some itching today; ordered as needed Benadryl. Kidney function improved and appears to be stable. Per nephrology, possible HD line removal tomorrow. Per ID, will monitor off antibiotics. 04/19 Patient evaluated and examined at bedside. Sugars pretty high today will need more insulin adjustments. On trach collar when I saw her. Continue diet as tolerated. Discussed with at bedside. Diet as tolerated. Working towards discharge. Continue antibiotics. Will ask renal if temporary HD catheter is still needed if not can remove. 04/18 Patient evaluated examined at bedside. She was on trach collar. Continue regular diet as tolerated. Monitoring blood pressure. Working towards discharge. 04/17 Patient evaluated and examined at bedside. She is pretty alert today. Underwent video swallow study earlier and cleared for regular diet with thin liquids. Definite improvement for her. On trach collar when I saw her. Continue current treatments. Watch blood pressure. If she well keep up a consistent amount of p.o. intake may be able to stop tube feeds and PEG tube removal. But this is far down the line. 04/16 Patient seen examined at bedside. Transfer out of the ICU yesterday. Speech therapy to evaluate this morning. Improved notably since I last saw her in the ICU. Continue PEG feeds. Blood pressure treatment. Plan of care discussed with bedside RN. 04/15/2021 Patient seen and examined in the ICU She has clean dry intact tracheostomy with trach shield PEG feeds running at 30 cc an hour She really wants to drink water I told her that we are awaiting speech therapy to reevaluate her Chart reviewed Discussed with RN 04/14/2021 Patient seen and examined in the ICU She remains pleasantly confused Has a new PEG in place Discussed with physical therapy Discussed with RN Chart reviewed 04/13/2021 Patient seen and examined in the ICU She is pleasantly confused Sedated with Precedex and fentanyl I discussed with the speech therapist the patient has no laryngeal movement Now she is n.p.o. again Going for new PEG placement in interventional radiology hopefully later today Her trach is clean Chart reviewed Discussed with RN 04/12/2021 Patient seen and examined in the ICU Her is present today and seems to be good support for her Chart reviewed Discussed with RN Still sedated with Precedex and fentanyl but awake 04/11/2021 Patient seen and examined in the ICU She remains quite confused currently sedated Chart reviewed Discussed with RN Had some nausea vomiting last night Pulled out her PEG yesterday Currently on fentanyl and Precedex IV Zyvox hanging 04/10/2021 Patient seen and examined in the ICU She is pleasantly confused Has a trach shield in place Discussed with RN Chart reviewed We are adding in some as needed Ativan and scheduled Prozac Ms Borges is a 46 year old female who presented with nausea/vomiting since 7 AM 02/06/2021 in the morning. Patient stated that her recently tested positive for Covid. She states that he "coughed in my face because he thought it was funny." She reports subjective fevers and chills and nausea/vomiting. Denies sore throat, cough, shortness of breath. No chest pain. Does have some upper abdominal discomfort after vomiting, that she attributes to muscular strain. She was not vaccinated for Covid. 02/08: No acute events overnight. Patient seen and examined bedside and resting comfortably. Continues to complain of nausea not able to tolerate any diet at this time. Saturating 98% on room air. Patient's chart, labs, images were reviewed and discussed with RN 02/09: Afebrile, currently breathing on room air. Still with complaints of nausea and vomiting x3 today. States that she has history of similar symptoms that have been mildly improved with IV Dilaudid. 02/10: Patient febrile today with T-max 102.2 F. She still admits to nausea, denies any further vomiting. We will continue to provide supportive care and monitor for any recurrent fevers overnight. Patient continues to improve may discharge tomorrow to continue self-isolation. 02/11: Febrile overnight, T-max 102.3 F. She did become hypoxic overnight, currently breathing on 4 L nasal cannula. Also admits to associated vomiting or diarrhea overnight. Discussed with RN, will initiate remdesivir and closely monitor LFTs. IV Decadron, and prophylactic antibiotics. 02/12: Low-grade fever overnight, T-max 99.7. Currently breathing on room air. Will discontinue remdesivir, steroids, and antibiotics; will observe overnight. Still with complaints of vomiting x1 and diarrhea. We will continue to provide supportive care and hope to discharge in the next day or so. 02/13: Afebrile. Still complains of intermittent diarrhea. At the time of my evaluation she was breathing on 6 L nasal cannula; this is somewhat misleading as patient states that she did not feel short of breath but was placed on 6 L by nursing staff overnight. 02/14: Afebrile, currently breathing on 8 L nasal cannula. There has been some misleading documentation, chart oxygen this patient is requiring. Discussed with RN, will resume remdesivir to complete total of 5 days. Continue to monitor LFTs. Will add steroids, Rocephin, and azithromycin. 02/15: Afebrile. Became much more hypoxic overnight, requiring BiPAP. At the time of my evaluation she is still breathing on BiPAP. Consultation was placed to pulmonology. Had discussion with Dr. Myrick about initiating Tocilizumab 02/16: No acute events overnight. Patient becoming more hypoxic saturating 94% and requiring BiPAP. Patient will be transferred to the ICU at this time. For worsening clinical status. Discussed with pulmonary. Patient's chart, labs, images were reviewed and discussed with RN 02/17: Transferred to ICU yesterday afternoon. Seen and examined at bedside she remains on 100% FiO2 on BiPAP. Respirations do appear somewhat labored. Suspect intubation may be impending. We will closely monitor. Increase lisinopril to 20 today. 02/18: Patient required intubation yesterday afternoon. Saw and examined this morning. She is intubated and sedated. Increase insulin today. Covid protocol ordered. Wean as tolerated. Plan of care discussed with bedside nurse. 02/19: Bedside. She remains intubated and sedated. Continue Covid protocol. Wean oxygen sedation as tolerated. Pulmonary following. Plan of care discussed with bedside RN. 02/20: Patient seen and examined at bedside. She remains intubated and sedated. No major clinical changes. Continue current treatment. Pulmonary following. Plan of care discussed with bedside RN. 02/21: Patient seen and examined at bedside. Remains intubated and sedated date and admission clinical changes. Increase free water flushes today due to hypernatremia. Plan of care discussed with bedside nurse. 02/22: Patient seen and examined at bedside. O2 requirement actually improving, although remains intubated. Possible SBT in the coming days. Hypernatremia improving. Plan of care discussed bedside RN. 02/23: Patient remains in ICU on ventilator with FiO2 100%, PEEP 7. Repeat chest x-ray yesterday showed diffuse bilateral pulmonary opacities with no interval improvement. Will discontinue Rocephin and initiate Zosyn. We will continue IV steroids for a full 10-day course 02/24: Afebrile. On vent with FiO2 40%, PEEP 6. Her Coreg has been held due to persistent bradycardia. No documented history of systolic heart failure or pr evious echocardiogram. Will need to obtain echocardiogram prior to discharge. Continue IV steroids and antibiotics. 02/25: Afebrile. Remains ventilated with FiO2 45%, PEEP 6. Chest x-ray today showed slight improvement of the pulmonary infiltrates, no pneumothorax. Completed 10-day course of IV Decadron. Will initiate slow Solu-Medrol taper. Continue IV Zosyn. Continue supportive care. 02/26: Afebrile. On vent with FiO2 45%, PEEP 6. Completed 10 days of IV Decadron. Will continue IV Zosyn. Continue supportive care. Critical care time 30 minutes spent reviewing charts, reviewing imaging, reviewing labs, discussion with RN. 02/27: Afebrile. On vent with FiO2 45%, PEEP 6. Completed 10 days of steroids and completed remdesivir. Continue with IV Zosyn. CPAP trial yesterday. Continue NG tube and supportive care. 02/28:. Patient remains on vent with FiO2 40%, PEEP 5. Afebrile. Completed steroids and remdesivir. Some noted hypoglycemia overnight, will de-escalate basal insulin. Continue IV Zosyn. Ventilator management per pulmonology. Continue NG tube and supportive care. 03/01: On vent with FiO2 40%, PEEP 5. Afebrile. Completed steroids and remdesivir. Blood glucose well controlled. Continue empiric antibiotics with Zosyn. Ventilator management per pulmonology. Continue NG tube and supportive care. 03/02: No acute events overnight. Patient hypotensive the morning due to oversedation. Will wean off sedation and keep antihypertensive medications on board. Currently saturating 100% on vent settings of 18/450/40/5. Will attempt spontaneous breathing trial today to see how patient does. 03/03: No acute events overnight. Patient saturating 98% on vent settings of 18/450/40/5. Will defer spontaneous breathing trials to pulmonary at this time. Patient's chart, labs, images were reviewed and discussed with RN 8: No acute events overnight. Patient saturating 9 9% on vent settings of 18/450/30/5. Patient currently is unable to tolerate weaning. Per pulmonary. Patient's chart, labs, images were reviewed and discussed with RN 8: No acute events overnight. Patient is saturating 97% on vent settings of 18/450/55/5. Her FiO2 needs to be increased due to abnormal ABG with 7.3 7/42/58/24. Patient's chart, labs, images were reviewed and discussed with RN 8/: No acute events overnight. Patient saturating 94% on vent settings of 18/450/55/5. Chest x-ray showing increase in pulmonary infiltrates. Wound care is consulted for decubitus ulcer patient's chart, labs, images were reviewed and discussed with RN 8/: No acute events overnight. Patient saturating 94% on vent settings of 20/450/70/8. Patient now heading into renal failure with her creatinine bumped up from 1.5-4.2. Decreased urine output. Plan for hemodialysis today and temporary catheter placement and nephrology is consulted. 03/08: No acute events overnight. Patient did have a nausea vomiting episode and tube feeds were held. KUB repeat shows NG tube still in the stomach. Will resume tube feeds at trickle and advance to goal today. Will start hemodialysis soon. 03/09: Seen on vent 450/60%/8. ABG 7.2 WBC 11.4, Hb 7.4, platelets 188, NA 131, K4.9, BUN 48, CR 51, glucose 199, phosphorus 7.9, mag 2.2, AST 265 ALT 219, albumin 1.1. Chest radiograph appears unchanged from prior. Dialysis x1 today 03/10: Afebrile. Seen on vent, /60/7 with ABG 7.3 . Tolerated dialysis well on 03/09. LFTs similar. 03/11: Afebrile. Seen on vent, sedated. Still requiring Levophed for BP support. WBC 16.7, Hb 8.1, NA 130, ABG 7.3 on 55% FiO2 PEEP 6. On Zosyn and Zyvox Diflucan. Dialysis today 03/12: Afebrile. Still requiring Levophed for BP support sedated with Versed febrile Precedex. WBC 16.1, Hb 8.5, platelets 185, NA 133. Trach plan tentatively 03/17. O2 saturations 93% on 50% FiO2 PEEP 6. ABG 7. On Zosyn and Zyvox Diflucan. 03/13: Afebrile. Still on Levophed for BP support lightly sedated. 7. on 45% FiO2. Plan for dialysis today. On Zosyn and Zyvox Diflucan. More swollen today. 03/14: Afebrile. Weaning down off Levophed. WBC 14.9 NA 132. O2 saturations 92% on 45% FiO2 PEEP 5. Afebrile. O2 saturations 91% on FiO2 45% PEEP 6. Continued on Zosyn and Zyvox Diflucan. Tentative trach planned 03/17/2021 CC time 31 minutes 03/16/21: Patient seen and examined in ICU. Periorbital as well as upper and lower extremity edema noted. OG feed running at 30cc/hr. Still on vent on pressure con trol with a rate of 24 with 45% FiO2. Patient has rectal bag. Currently she has 98% O2 sat. Currently sedated with Dexmedetomidine, Propofol, Versed, and Fentanyl. Discussed with RN. Chart reviewed. 03/17/21: Patient was seen and examined in the ICU today. Periorbital edema as well as abdominal and mons pubis edema was noted. Patient still on vent on pressure control with Fi02 of 45% plus 6 PEEP. Patient had rectal bag. Currently sedated on Dexmedetomidine, Propofol, Versed, and Fentanyl. Discussed with RN. Chart reviewed. 03/18/21: Patient seen and examined in ICU. On vent via trach that was placed yesterday. Vent settings are Pressure Control of 40 with FiO2 of 45% and 6 PEEP. Trach clean and dry. Orbital swelling still present. Pupils are sluggish. Patient on TPN running at 30cc/hr. Kern to bedside and rectal bag in place. Current O2 sat at 94%. Sedated on Dexmedetomidine, Propofol, Versed, and Fentanyl. Discussed with RN. Chart reviewed. 03/19/21: Patient was seen and examined in the ICU today. Currently on vent via trach on pressure control of 42, rate of 24, FiO2 of 45%, and 6 PEEP. O2 sat is at 97% while patient is being examined. Trach is clean and dry. PICC line is in place on right arm. Periorbital swelling has decreased slightly since examined yesterday. Patient is sedated on Dexmedetomidine, Propofol, Versed, and Fentanyl. Discussed with RN. Chart reviewed. 03/20/21: Patient seen and examined in the ICU. Periorbital edema is slightly decreased since yesterday. O2 sat while being examined was 93%. NG tube in place and running at 30cc/hr. Patient on vent via trach on pressure control of 40 with FiO2 of 45 and rate of 24. Sedated on Dexmedetomidine, Propofol, Versed, and Fentanyl. PICC line in place. Kern to bedside. Rectal bag present. Discussed with RN. Chart reviewed. 03/21/21: Patient was seen and examined in the ICU today. She was semi-sedated.. She was on Dexmedetomidine and Fentanyl. We are holding the Propofol. Her eyes were periodically open but she was not making meaningful eye contact or t racking. On vent via trach with pressure control of 40 and FiO2 at 45. Rate was 24. PEEP was 5. Trach was clean and dry. While being examined, her O2 sat was 94%. Rectal bag and Kern to bedside in place. NG tube in place and feeding at 30cc/hr. IV fluids still running. Levophed has been stopped. Discussed with RN. Chart reviewed. 03/22/21: Patient was seen and examined in the ICU. She was semi-sedated on Propofol and Dexmedetomidine. Her eyes were open but she did not make meaningful eye contact. Her blood pressure was elevated (198/102) while being examined and she had just been given hydralazine to lower it. There are plans to place a PEG tube tomorrow. Currently on vent via trach on pressure control of 40 with FiO2 of 45%, 5 PEEP, and a rate of 24. Current O2 sat is 98%. She is feeding through an NG tube at 30cc/hr. Rectal bag and Kern to bedside present. SCDs on patient for DVT prophylaxis. She did not do her daily dialysis today but the plan is to start back on that tomorrow. Discussed with RN. Chart reviewed. 03/23/2021: Patient remains in ICU on ventilator. FiO2 40%, PEEP 5. Trach cultures positive for [place] albicans and acinebacter ursungi. We will continue treatment with IV antibiotics and micafungin, per ID. HD per nephrology. Plans for PEG tube placement today. 30 minutes critical care time was spent reviewing charts, reviewing labs, reviewing imaging, discussion with RN. 03/24/2021: Afebrile. On vent with FiO2 45%, PEEP 5. Had attempted PEG placement per GI yesterday, but unable to locate safe path for PEG; will consider surgical opinion. Once PEG is in place she should be stable for LTAC transfer when accepted. Continue antibiotics, per ID. 30 minutes critical care time was spent reviewing charts, reviewing labs, reviewing imaging, discussion with RN. 03/25/2021: Febrile overnight with T-max 101.5 F. On vent with FiO2 45%, PEEP 5. Surgery has been consulted with tentative plans for laparoscopic versus open gastrostomy placement tomorrow. Trach cultures positive for [place] albicans and now acinebacter ursungi; will continue antibiotic management, per ID. Hemodialysis, per nephrology. Patient needing LTAC placement, but currently without benefits. refuge worker following for discharge planning. Critical care time 30 minutes spent reviewing charts, reviewing labs, reviewing imaging, discussion with RN. 03/26/2021: Febrile today with T-max 100.5 F. Awake on vent with FiO2 45%, PEEP 5. When I ask if she remembers any she nods. G-tube placement scheduled for tomorrow, per general surgery. Chest x-ray today showed slight interval increase in diffuse infiltrate. Continue antibiotic management, per ID. Hemodialysis per nephrology. Reportedly did not tolerate CPAP trial this morning. refuge worker following for LTAC placement. Critical care time 30 minutes spent reviewing charts, reviewing labs, reviewing imaging, discussion with RN. 03/27/2021: On vent with FiO2 45%, PEEP 5. Afebrile today. Continue treatment of acute renal failure requiring HD, per nephrology. Monitor kidney function for recovery. G-tube placement scheduled for today, per general surgery. Likely LTAC placement soon, but this is been a difficult as she is self-pay without benefits; community mental health social worker following. Critical care time 30 minutes spent reviewing charts, reviewing labs, reviewing imaging, discussion with RN. 03/28/2021: Afebrile. On vent with FiO2 40%, PEEP 5. Had laparoscopic gastrostomy tube placed yesterday, per general surgery. Continue treatment of acute renal failure requiring HD, per nephrology. Continue IV antibiotics, per ID. Likely LTAC placement soon, but this is been a difficult as she is self-pay without benefits; community mental health social worker following. Critical care time 30 minutes spent reviewing charts, reviewing labs, reviewing imaging, discussion with RN. 03/29/2021: Afebrile. On vent with FiO2 45%, PEEP 5. S/P laparoscopic gastrostomy tube; tube feeds running. HD, per nephrology. Continue meropenem, per ID. Anticipate LTAC placement soon now that PEG has being placed; community mental health social worker helping in these regards. Critical care time 30 minutes spent reviewing charts, reviewing labs, reviewing imaging, discussion with RN. 03/30 No major events or clinical changes overnight. Patient evaluated at bedside this morning on trach and G-tube. Tolerating these well. Has been working on insurance for patient for placement as she will need long-term care. Guarded prognosis. Plan of care discussed with bedside nurse. 03/31 No major clinical changes. Remains trached. Sedated. Continue current plan. 04/01 No changes. Patient resting in bed when evaluated sedated. is supposed to be working on insurance for placement for the patient. Otherwise no changes. 04/02 Patient febrile overnight, daptomycin added this morning per infectious disease. Otherwise no major clinical changes. Awaiting insurance. Infectious disease, pulmonary and renal following. Plan of care discussed with bedside RN. 04/03 Patient undergoing dialysis today. Evaluated at bedside this morning. otherwise continue current plan. supposed working on insurance. 04/04 No major overnight changes. Continue current plan. 04/05 Patient notably more movement this morning eyes open resting in bed otherwise no major changes. Continue current plan. Insurance pending. 04/06 Patient notably more movement this morning eyes open resting in bed current plan. Insurance pending. Continue daptomycin, renal dosing April 02 F/U Blood culture UA urine culture C. diff PCR negative 32 min cc time 04/07 Patient notably more movement this morning eyes open resting in bed current plan. Insurance pending. Continue daptomycin, renal dosing April 02 F/U Blood culture UA urine culture C. diff PCR negative Abnormal chest x-ray consistent with COVID-19 viral pneumonia. Diabetic ketoacidosis--resolved obesity contributing to hypoxia as well. BOB . hemodialysis started 03/07 DVT GI prophylaxis Nutritional support 34 min cc time 04/08 Patient notably more movement this morning eyes open resting in bed current plan. Insurance pending. Continue daptomycin, renal dosing April 02 F/U Blood culture UA urine culture C. diff PCR negative s/p lap G-tube 03/27 Abnormal chest x-ray consistent with COVID-19 viral pneumonia. Diabetic ketoacidosis--resolved obesity contributing to hypoxia as well. BOB . hemodialysis started 03/07 DVT GI prophylaxis Nutritional support Right PICC line February 14 out; left PICC line 04/07/2021 Right IJ HDC clean March 07 32 min cc time 04/09 non Oliguric for past 11/2 -2 weeks , good response to IV NS bolus .requiring dialysis., currently on MWF schedule, tolerating trach shield well.using her speaking valve./ resting in bed current / states she feels better Start iv Zyvox Cont Meropenem DC daptomycin post PICC line exchange aspiration precautions C. diff PCR negative F/U Blood culture UA urine culture s/p lap G-tube 03/27 Abnormal chest x-ray consistent with COVID-19 viral pneumonia. Diabetic ketoacidosis--resolved obesity contributing to hypoxia as well. BOB . hemodialysis started 03/07 DVT GI prophylaxis Nutritional support Right PICC line February 14 out; left PICC line 04/07/2021 Right IJ HDC clean March 07 34 min cc time Vitals/I&O Vitals/I&O: Vital Signs Date Time Temp Pulse Resp B/P (MAP) Pulse Ox O2 Delivery O2 Flow Rate FiO2 05/01/21 08:32 18 Room Air 05/01/21 08:04 98 05/01/21 07:30 98.0 117 171/79 (109) 98.0 I & O 04/30/21 04/30/21 05/01/21 15:00 23:00 07:00 Intake Total 800 ml 800 ml Output Total 2300 ml Balance 800 ml -1500 ml Physical Exam Physical Exam: GENERAL: No acute distress, AAOx3, pleasant. HEENT: Normocephalic, atraumatic. Anicteric. Neck right IJ HDC clean Trach + capped LUNGS: Decreased breath sounds otherwise clear HEART: S1, S2. No murmurs. ABDOMEN: Obese, soft. Bowel sounds present. Nontender, nondistended. PEG tube pulled out by patient EXTREMITIES: Edema present no cyanosis. CENTRAL NERVOUS SYSTEM: CN II-XII intact, No FND. PSYCHIATRIC: AAOx3, pleasant. Derm has pressure wounds wound pictures noted in chart. Generalized rash, Right PICC line removed; left PICC line 04/07/2021 Right IJ HDC clean March 07 General: Alert, Oriented X3, Cooperative, No acute distress Heart: Normal S1, Normal S2, Other (Tachycardic) Lungs: Crackles Abdomen: Normal bowel sounds, Soft, Other (ND) Extremities: No cyanosis, Other (ANASARCA) Skin: No rashes, No significant lesion Labs Labs: Laboratory Tests Test 04/30/21 11:49 04/30/21 17:04 04/30/21 19:57 05/01/21 06:15 Glucose (Fingerstick) 232 mg/dL (70-99) 161 mg/dL (70-99) 231 mg/dL (70-99) White Blood Count 9.5 x10^3/uL (4.0-11.0) Red Blood Count 3.21 x10^6/uL (3.50-5.40) Hemoglobin 9.3 g/dL (12.0-15.5) Hematocrit 27.6 % (36.0-47.0) Mean Corpuscular Volume 86 fL (79-100) Mean Corpuscular Hemoglobin 29 pg (25-35) Mean Corpuscular Hemoglobin Concent 34 g/dL (31-37) Red Cell Distribution Width 14.3 % (11.5-14.5) Platelet Count 290 x10^3/uL (140-400) Neutrophils (%) (Auto) 59 % (31-73) Lymphocytes (%) (Auto) 31 % (24-48) Monocytes (%) (Auto) 7 % (0-9) Eosinophils (%) (Auto) 3 % (0-3) Basophils (%) (Auto) 1 % (0-3) Neutrophils # (Auto) 5.6 x10^3/uL (1.8-7.7) Lymphocytes # (Auto) 2.9 x10^3/uL (1.0-4.8) Monocytes # (Auto) 0.7 x10^3/uL (0.0-1.1) Eosinophils # (Auto) 0.2 x10^3/uL (0.0-0.7) Basophils # (Auto) 0.1 x10^3/uL (0.0-0.2) Sodium Level 132 mmol/L (136-145) Potassium Level 4.2 mmol/L (3.5-5.1) Chloride Level 95 mmol/L (98-107) Carbon Dioxide Level 30 mmol/L (21-32) Anion Gap 7 (6-14) Blood Urea Nitrogen 30 mg/dL (7-20) Creatinine 1.5 mg/dL (0.6-1.0) Estimated GFR (Cockcroft-Gault) 37.6 Glucose Level 182 mg/dL (70-99) Calcium Level 9.3 mg/dL (8.5-10.1) Review of Systems Review of Systems: Patient complains of N/V ROS otherwise negative Assessment and Plan Assessmemt and Plan Problems Medical Problems: (1) Ketoacidosis Status: Acute COVID-19 acute hypoxic respiratory failure DKA Hypotension Nausea Vomiting Combined metabolic and respiratory acidosis Acute electrolyte derangementhyponatremia, hypochloremia due to volume depletion Hyperglycemia BOB due to ATN, requiring dialysis Erythrocytosis Candiduria Sacral decubitus ulcer S/P Trach on (9/7/21) Trach cultures positive for [place] albicans and now acinebacter ursungi Plan Added norvasc d/t elevated BP Discharge home at end of week with [facility] per PT Erlin [facility]SB Continue home meds Continue to encourage PO intake DVT Prophylaxis- Heparin Disposition: Home with [facility] (1-2 days) Full Code Comment Review of Relevant I have reviewed the following items mazin (where applicable) has been applied. Justifications for Admission Other Justification DIANELYS BLACKMON III DO May 01, 2021 10:47
[2021-05-01 11:09] VITALS: BP 153/69
[2021-05-01] MEDS: METOCLOPRAMIDE HCL 10 MG/2 ML VIAL. IVP PRN (11:19)
--- NOTE | 2021-05-01 12:08 | NUR ---
SS following up with discharge planning. SS reviewed pt chart and discussed with pt RN. Pt is currently on room air. COVID19 recovered. PO diet. PT/OT working with pt. Pt accepted on services with [facility], ; fax [phone], for [facility]. SS discussed with physician. Possible discharge to home with home healthcare later today. SS discussed with pt's spouse, Sam. Perez provided to pt for home. SS will continue to follow for discharge planning. Addendum: 05/01/21 at 1259 by FIORELLA LEW SS Discharge orders for home healthcare received. SS phoned and faxed discharge orders to [facility], ; fax [phone]. Pt's RN notified.
--- NOTE | 2021-05-01 12:08 | PDOC ---
DATE OF SERVICE DATE: 05/01/21 TIME: 12:06 SUBJECTIVE ROS c/o Mild Nausea No SOB OBJECTIVE Vital Signs Vital Signs Date Time Temp Pulse Resp B/P (MAP) Pulse Ox O2 Delivery O2 Flow Rate FiO2 05/01/21 11:09 97.9 119 18 153/69 (97) 97 Room Air 97.9 I & 0 Intake and Output 05/01/21 07:00 Intake Total 1600 ml Output Total 2300 ml Balance -700 ml Intake Oral 1600 ml Output Urine Total 2300 ml # Voids 3 # Bowel Movements 2 PHYSICAL EXAM Physical Exam GENERAL: NAD , HEENT: Anicteric. . OM moist Neck supple LUNGS: decreased at bases HEART: S1, S2. No murmurs. ABDOMEN: Obese, soft. Bowel sounds present. EXTREMITIES: no cyanosis. [place] + DIAGNOSIS/ASSESSMENT Assessment & Plan BOB-ATN- Resolved, probably her baseline renal function now E-Lytes, Resp status stable. Supportive care, avoid nephrotoxins, Follow up with us Post dc - routine/Non urgent HypoNatremia - mild , stable DM 2 COVID 19 Pneumonia POA - Unvaccinated Acute Resp Failure- requuired intubation/Trach . Decannulation on 04/24 HTN Anemia -avoid DOYLE 2/2 to Thrombogenic state Family History of ESRD - Per at bedside- Pt's Mom was on dialysis and sister is on Dialysis COMMENT/RELEVANT DATA Meds Current Medications Medications (Trade) Dose Ordered Sig/Pepe Start Time Stop Time Status Last Admin Dose Admin Acetaminophen (Tylenol Supp) 650 mg PRN Q6HRS PRN 02/08/21 01:45 02/17/21 10:45 DC Acetaminophen (Tylenol) 500 mg 1X PRN PRN 03/17/21 13:30 03/18/21 13:29 DC Acetaminophen/ Hydrocodone Bitart (Lortab 10/325) 1 tab PRN Q6HRS PRN 04/26/21 10:30 Acetaminophen/ Hydrocodone Bitart (Lortab 7.5/325) 1 tab PRN Q6HRS PRN 04/26/21 10:30 Albumin Human 200 ml @ 200 mls/hr 1X PRN PRN 04/06/21 08:45 04/06/21 14:44 DC 04/06/21 10:43 200 MLS/HR Albuterol Sulfate (Ventolin Hfa) 60 puff STK-MED ONCE 03/17/21 11:29 03/17/21 11:29 DC Albuterol Sulfate (Ventolin Neb Soln) 2.5 mg PRN Q4HRS PRN 04/19/21 13:00 04/21/21 05:30 2.5 MG Albuterol/ Ipratropium (Duoneb) 3 ml RTQID 04/15/21 10:00 04/25/21 11:31 DC 04/25/21 11:24 3 ML Alteplase, Recombinant (Cathflo For Central Catheter Clearance) 1 mg 1X ONCE 02/27/21 14:30 02/27/21 14:36 DC 02/27/21 15:19 1 MG Alteplase, Recombinant (Cathflo) 2 mg 1X ONCE 02/27/21 11:00 02/27/21 11:01 DC 02/27/21 11:20 2 MG Amlodipine Besylate (Norvasc) 10 mg DAILY 05/01/21 12:00 Atorvastatin Calcium (Lipitor) 40 mg HS 02/08/21 21:00 04/30/21 21:01 40 MG Atropine Sulfate (ATROPINE 0.5mg SYRINGE) 0.5 mg PRN Q5MIN PRN 02/16/21 12:00 Cancel Azithromycin 250 mg/Sodium Chloride 250 ml @ 250 mls/hr Q24H 02/14/21 13:30 02/18/21 14:29 DC 02/18/21 11:51 250 MLS/HR Barium Sulfate (Varibar Thin Liquid Apple) 148 gm 1X ONCE 04/17/21 10:00 04/17/21 10:02 DC 04/17/21 11:30 148 GM Benzonatate (Tessalon Perle) 100 mg [id number] 02/10/21 23:30 02/17/21 10:45 DC 02/16/21 22:07 100 MG Bupivacaine HCl/ Epinephrine Bitart (Sensorcain-Epi 0.5% Kit) 30 ml STK-MED ONCE 03/27/21 10:05 03/27/21 10:05 DC 03/27/21 13:12 16 ML Bupivacaine HCl/ Epinephrine Bitart (Sensorcain-Epi 0.5%-1:075884 Mpf) 30 ml STK-MED ONCE 03/17/21 10:47 03/17/21 10:47 DC Carvedilol (Coreg) 6.25 mg [id number] 02/08/21 20:30 02/23/21 15:50 DC 02/23/21 08:06 6.25 MG Cefazolin Sodium/ Dextrose (Ancef 2gm Premix) 2 gm STK-MED ONCE 03/23/21 13:00 03/24/21 11:58 DC Ceftriaxone Sodium (Rocephin) 1 gm Q24H 02/14/21 13:00 02/23/21 07:34 DC 02/22/21 12:42 1 GM Cellulose (Surgicel Fibrillar 1x2) 1 each STK-MED ONCE 03/17/21 10:47 03/17/21 10:47 DC 03/17/21 11:56 1 EACH Daptomycin 480 mg/ Sodium Chloride 50 ml @ 100 mls/hr QMWF 03/23/21 16:00 03/26/21 10:29 DC 03/25/21 19:52 100 MLS/HR Daptomycin 500 mg/ Sodium Chloride 50 ml @ 100 mls/hr Q48H 04/02/21 10:00 04/09/21 10:52 DC 04/08/21 13:14 100 MLS/HR Dexamethasone Sodium Phosphate (Decadron) 2 mg 1X ONCE 02/27/21 09:00 02/26/21 07:15 DC Dexmedetomidine HCl 400 mcg/ Sodium Chloride 100 ml @ 0 mls/hr CONT PRN 02/27/21 09:45 04/16/21 15:07 DC 04/15/21 05:36 0.2 MLS/HR Dextrose (Dextrose 50%-Water Syringe) 12.5 gm PRN Q15MIN PRN 03/01/21 13:00 03/01/21 12:55 12.5 GM Diphenhydramine HCl (Benadryl Oral Elixir) 25 mg PRN Q6HRS PRN 04/20/21 09:45 04/29/21 21:42 25 MG Diphenhydramine HCl (Benadryl) 25 mg 1X PRN PRN 03/17/21 13:30 03/18/21 13:29 DC Docusate Sodium (Colace Solution) 100 mg BID 02/23/21 12:00 04/30/21 21:00 100 MG Docusate Sodium (Colace) 100 mg PRN DAILY PRN 02/07/21 08:45 02/23/21 10:47 DC Enalaprilat (Vasotec Inj) 0.625 mg Q6HRS 02/08/21 16:15 02/09/21 16:01 DC 02/09/21 13:42 0.625 MG Enoxaparin Sodium (Lovenox 30mg Syringe) 30 mg Q24H 03/08/21 09:00 03/12/21 15:38 DC 03/12/21 09:04 30 MG Enoxaparin Sodium (Lovenox 40mg Syringe) 40 mg BID 02/09/21 09:00 03/08/21 13:56 DC 03/08/21 08:26 40 MG Enoxaparin Sodium (Lovenox Per Pharmacy Prophylaxis Dosing) 1 each PRN DAILY PRN 02/09/21 06:45 03/12/21 15:38 DC Ephedrine Sulfate (ePHEDrine PF IN SALINE SYRINGE) 50 mg STK-MED ONCE 03/17/21 10:56 03/17/21 10:56 DC Famotidine (Pepcid Vial) 20 mg DAILY 03/10/21 09:00 04/30/21 14:35 DC 04/30/21 08:35 20 MG Fentanyl (Duragesic 25mcg/ Hr Patch) 1 patch Q3DAYS 04/13/21 13:00 05/01/21 08:32 1 PATCH Fentanyl Citrate (Fentanyl 2ml Vial) 100 mcg 1X ONCE 04/13/21 14:00 04/13/21 14:03 DC 04/13/21 13:54 50 MCG Fluconazole/ Sodium Chloride 100 ml @ 100 mls/hr Q24H 03/07/21 09:00 03/17/21 08:03 DC 03/16/21 08:29 100 MLS/HR Fluoxetine HCl (PROzac) 20 mg 1X ONCE 04/10/21 11:15 04/10/21 11:34 DC Furosemide (Lasix) 40 mg 1X ONCE 03/29/21 15:00 03/29/21 15:02 DC 03/29/21 15:22 40 MG Glycerin/ Hypromellose/ Polyethylene (Artificial Tears) 1 drop PRN Q1HR PRN 02/17/21 10:00 04/05/21 08:02 1 DROP Glycopyrrolate (Robinul) 1 mg STK-MED ONCE 03/27/21 14:07 03/27/21 14:07 DC Guaifenesin (Robitussin Dm) 10 ml PRN Q6HRS PRN 02/10/21 23:30 04/23/21 22:12 10 ML Haloperidol Lactate (Haldol Inj) 5 mg Q8HRS 04/01/21 11:30 04/07/21 14:58 DC 04/07/21 05:51 5 MG Heparin Sodium (Porcine) (Heparin Sodium) 5,000 unit Q8HRS 03/13/21 06:00 05/01/21 06:23 5,000 UNIT Hydralazine HCl (Apresoline Inj) 10 mg PRN Q4HRS PRN 02/11/21 12:15 04/22/21 22:29 10 MG Hydromorphone HCl (Dilaudid) 0.5 mg PRN Q10MIN PRN 03/27/21 06:00 03/28/21 05:59 DC Info (CONTRAST GIVEN -- Rx MONITORING) 1 each PRN DAILY PRN 04/13/21 13:45 04/15/21 13:44 DC Info (PHARMACY MONITORING -- do not chart) 1 each PRN DAILY PRN 04/10/21 13:30 Cancel Insulin Glargine (Lantus Syringe) 20 unit BID 04/24/21 21:00 05/01/21 08:47 20 UNIT Insulin Human Lispro (HumaLOG) 15 units 1X ONCE 04/24/21 21:15 04/24/21 21:16 DC 04/24/21 22:14 15 UNITS Insulin Human Regular 100 ml @ 10 mls/hr 1X ONCE 02/07/21 06:30 02/07/21 16:54 DC 02/07/21 09:31 6.5 MLS/HR Insulin Human Regular 100 unit/ Sodium Chloride 101 ml @ 0 mls/hr CONT PRN PRN 02/07/21 06:00 02/07/21 16:54 DC Iohexol (Omnipaque 240 Mg/ml) 50 ml 1X ONCE 04/13/21 13:45 04/13/21 13:46 DC 04/13/21 13:45 28 ML Labetalol HCl (Normodyne Iv Push) 10 mg PRN Q2HR PRN 02/08/21 00:45 04/16/21 19:53 10 MG Lactobacillus Rhamnosus (Culturelle) 1 cap BID 02/16/21 21:00 02/17/21 10:45 DC 02/16/21 22:02 1 CAP Lidocaine HCl (Buffered Lidocaine 1%) 3 ml STK-MED ONCE 03/07/21 13:25 03/07/21 13:25 DC Linezolid (Zyvox) 600 mg BID 03/05/21 09:00 03/12/21 07:00 DC 03/11/21 20:33 600 MG Linezolid/Dextrose 300 ml @ 300 mls/hr Q12HR 04/09/21 12:00 04/11/21 12:54 DC 04/11/21 09:59 300 MLS/HR Lisinopril (Prinivil) 20 mg DAILY 02/17/21 09:00 03/09/21 10:43 DC 02/27/21 09:10 20 MG Lorazepam (Ativan Inj) 1 mg PRN Q2HR PRN 04/10/21 11:15 05/01/21 08:31 1 MG Magnesium Sulfate 50 ml @ 25 mls/hr 1X ONCE 04/17/21 18:00 04/17/21 19:59 DC 04/17/21 17:31 25 MLS/HR Meropenem 1 gm/ Sodium Chloride 100 ml @ 200 mls/hr Q24H 03/18/21 17:00 04/10/21 11:57 DC 04/09/21 17:00 200 MLS/HR Methylprednisolone Sodium Succinate (SOLU-Medrol 125MG VIAL) 80 mg Q8HRS 02/25/21 09:00 02/26/21 07:09 DC 02/26/21 05:52 80 MG Metoclopramide HCl (Reglan Vial) 10 mg PRN Q6HRS PRN 02/08/21 00:45 05/01/21 11:19 10 MG Micafungin Sodium 100 mg/Dextrose 100 ml @ 100 mls/hr Q24H 03/21/21 18:00 03/25/21 10:27 DC 03/24/21 16:36 100 MLS/HR Midazolam HCl (Versed) 2 mg 1X ONCE 04/13/21 14:00 04/13/21 14:03 DC 04/13/21 13:54 2 MG Morphine Sulfate (Morphine Sulfate) 1 mg PRN Q10MIN PRN 03/27/21 06:00 03/28/21 05:59 DC Multi-Ingred Cream/Lotion/Oil/ Oint (Artificial Tears Eye Ointment) 1 reji PRN Q1HR PRN 03/17/21 17:30 03/20/21 15:55 1 REJI Multivitamins/ Minerals Therapeutic (Centrum Multivit-Mineral Liq) 5 ml DAILY 03/14/21 09:00 04/30/21 08:34 5 ML Naloxone HCl (Narcan) 0.4 mg PRN Q2MIN PRN 03/27/21 14:30 Neostigmine Neche (Neostigmine Methylsulfate) 5 mg STK-MED ONCE 03/27/21 14:06 03/27/21 14:07 DC Norepinephrine Bitartrate 8 mg/ Dextrose 258 ml @ 21.711 mls/ hr CONT PRN 03/06/21 13:45 04/15/21 14:14 DC 03/19/21 18:45 23.3 MLS/HR Nystatin (Nystop) 1 reji BID 03/02/21 21:00 05/01/21 08:34 1 REJI Ondansetron HCl (Zofran Odt) 4 mg 1X ONCE 02/06/21 23:30 02/06/21 23:31 DC 02/06/21 23:57 4 MG Ondansetron HCl (Zofran) 4 mg STK-MED ONCE 04/13/21 13:33 04/13/21 13:33 DC Oxycodone/ Acetaminophen (Percocet 5/325) 2 tab PRN Q4HRS PRN 04/19/21 11:45 Pantoprazole Sodium (Protonix) 40 mg DAILYAC 05/01/21 07:30 Phenylephrine HCl (PHENYLEPHRINE in 0.9% NACL PF) 1 mg STK-MED ONCE 03/27/21 13:46 03/27/21 13:46 DC Piperacillin Sod/ Tazobactam Sod (Zosyn Per Pharmacy) 1 each PRN DAILY PRN 02/23/21 07:45 03/17/21 10:04 DC Piperacillin Sod/ Tazobactam Sod 2.25 gm/Sodium Chloride 50 ml @ 100 mls/hr Q8HRS 03/07/21 14:00 03/17/21 08:03 DC 03/17/21 05:58 100 MLS/HR Piperacillin Sod/ Tazobactam Sod 3.375 gm/Sodium Chloride 50 ml @ 100 mls/hr Q6HRS 03/14/21 18:00 Cancel Piperacillin Sod/ Tazobactam Sod 4.5 gm/Sodium Chloride 100 ml @ 200 mls/hr Q6HRS 02/23/21 08:00 03/07/21 08:18 DC 03/07/21 06:12 200 MLS/HR Potassium Bicarbonate (Potassium Effervescent Tablet) 40 meq 1X ONCE 04/16/21 09:00 04/16/21 09:04 DC 04/16/21 09:22 40 MEQ Potassium Chloride/Water 100 ml @ 50 mls/hr Q2HR 04/17/21 18:00 04/17/21 21:59 DC 04/17/21 21:55 50 MLS/HR Potassium Chloride (Klor-Con) 40 meq 1X ONCE 02/13/21 12:00 02/13/21 12:01 DC 02/13/21 13:21 40 MEQ Prochlorperazine Edisylate (Compazine) 5 mg PACU PRN PRN 03/27/21 06:00 03/28/21 05:59 DC Propofol (Diprivan) 200 mg STK-MED ONCE 03/27/21 12:02 03/27/21 12:03 DC Remdesivir 100 mg/ Sodium Chloride 230 ml @ 460 mls/hr Q24H 02/15/21 12:00 02/18/21 12:29 DC 02/18/21 11:52 460 MLS/HR Remdesivir 200 mg/ Sodium Chloride 210 ml @ 210 mls/hr 1X ONCE 02/11/21 13:00 02/12/21 11:55 DC 02/11/21 14:33 210 MLS/HR Ringer's Solution 1,000 ml @ 30 mls/hr Q24H 03/27/21 06:00 03/27/21 17:59 DC Rocuronium Neche (Zemuron) 50 mg STK-MED ONCE 03/27/21 13:16 03/27/21 13:17 DC Sennosides (Senna) 17.2 mg PRN BID PRN 02/07/21 08:45 02/22/21 08:29 17.2 MG Sevoflurane (Ultane) 60 ml STK-MED ONCE 03/27/21 14:19 03/27/21 14:20 DC Sodium Chloride (Normal Saline Flush) 3 ml QSHIFT PRN 03/27/21 14:30 Sodium Chloride (Saline Mist Nasal) 1 reji PRN Q1HR PRN 04/30/21 06:30 04/30/21 06:34 1 REJI Succinylcholine Chloride (Anectine) 200 mg STK-MED ONCE 02/17/21 10:00 02/25/21 08:40 DC Vancomycin HCl (Vanco Per Pharmacy) 1 each PRN DAILY PRN 03/04/21 18:30 03/05/21 08:59 DC 03/04/21 19:47 1 EACH Vancomycin HCl (Vancomycin Trough Level) 1 each 1X ONCE 03/06/21 07:00 03/06/21 07:01 Cancel Vancomycin HCl 1.5 gm/Sodium Chloride 500 ml @ 250 mls/hr Q12H 03/05/21 07:30 03/05/21 08:58 DC Vancomycin HCl 1 gm/Sodium Chloride 250 ml @ 250 mls/hr Q12H 03/04/21 20:00 UNV Vancomycin HCl 2 gm/Sodium Chloride 500 ml @ 250 mls/hr 1X ONCE 03/04/21 19:00 03/04/21 20:59 DC 03/04/21 19:26 250 MLS/HR Vecuronium Neche (Norcuron Bolus) 6 mg PRN Q2HRS PRN 03/06/21 14:30 04/16/21 14:59 DC 03/16/21 10:16 5 MG Vitamin A/Vitamin D (Vitamin A & D Ointment) 1 reij PRN Q1HR PRN 03/10/21 01:45 03/20/21 09:34 1 REJI Zolpidem Tartrate (Ambien) 5 mg PRN QHS PRN 04/10/21 11:15 Lab Laboratory Tests Test 04/30/21 17:04 04/30/21 19:57 05/01/21 06:15 05/01/21 11:33 Glucose (Fingerstick) 161 mg/dL (70-99) 231 mg/dL (70-99) 327 mg/dL (70-99) White Blood Count 9.5 x10^3/uL (4.0-11.0) Red Blood Count 3.21 x10^6/uL (3.50-5.40) Hemoglobin 9.3 g/dL (12.0-15.5) Hematocrit 27.6 % (36.0-47.0) Mean Corpuscular Volume 86 fL (79-100) Mean Corpuscular Hemoglobin 29 pg (25-35) Mean Corpuscular Hemoglobin Concent 34 g/dL (31-37) Red Cell Distribution Width 14.3 % (11.5-14.5) Platelet Count 290 x10^3/uL (140-400) Neutrophils (%) (Auto) 59 % (31-73) Lymphocytes (%) (Auto) 31 % (24-48) Monocytes (%) (Auto) 7 % (0-9) Eosinophils (%) (Auto) 3 % (0-3) Basophils (%) (Auto) 1 % (0-3) Neutrophils # (Auto) 5.6 x10^3/uL (1.8-7.7) Lymphocytes # (Auto) 2.9 x10^3/uL (1.0-4.8) Monocytes # (Auto) 0.7 x10^3/uL (0.0-1.1) Eosinophils # (Auto) 0.2 x10^3/uL (0.0-0.7) Basophils # (Auto) 0.1 x10^3/uL (0.0-0.2) Sodium Level 132 mmol/L (136-145) Potassium Level 4.2 mmol/L (3.5-5.1) Chloride Level 95 mmol/L (98-107) Carbon Dioxide Level 30 mmol/L (21-32) Anion Gap 7 (6-14) Blood Urea Nitrogen 30 mg/dL (7-20) Creatinine 1.5 mg/dL (0.6-1.0) Estimated GFR (Cockcroft-Gault) 37.6 Glucose Level 182 mg/dL (70-99) Calcium Level 9.3 mg/dL (8.5-10.1) Results All relevant outside records, renal labs, imaging studies, telemetry/EKG's were reviewed. Justicifation of Admission Dx: Justifications for Admission: Justification of Admission Dx: N/A GIGI CARMEN MD May 01, 2021 12:08
[2021-05-01] MEDS ORDERED: HYDR-2769 PO (12:49)
[2021-05-01] MEDS ORDERED: ALBU2.5V8 NEB (12:49)
[2021-05-01] MEDS ORDERED: AMLO-187 PO (12:49)
[2021-05-01] MEDS ORDERED: INSU100V8 SQ (12:49)
[2021-05-01] MEDS ORDERED: PANT40TA77 PO (12:49)
[2021-05-01] MEDS ORDERED: FLUO20SO2 PEG (12:49)
--- NOTE | 2021-05-01 12:50 | SNU/HH DC ---
DISCHARGE WITH HOME HEALTH DISCHARGE INFORMATION: Final Diagnosis: Problems Medical Problems: (1) Ketoacidosis Status: Acute Condition on Discharge: Stable CODE STATUS: Code Status: Full HOME HEALTH: Face to Face: I certify this patient is under my care and that I, or a nurse practitioner or physician's family services assistant working with me, had a face to face encounter that meets the physician face to face encounter requirements with this patient on []. Medical Complications: Other (Resolving respiratory failure with Covid-19) Residential For: Assess Cardiopulm Status RN For Eval/Treatment: Yes Physical Therapy For: Evalulation/Treatment Occupational Therapy For: Evaluation/Treatment Home Health Aide For: Self-care RETAIL DEPARTMENT MANAGER For: Community Resources Pt Meets Homebound Status: Poor coordination w/ amb. POST DISCHARGE ORDERS: Activity Instructions for Disc: Activity as tolerated, Progressive ambulation Weight Bearing Status after Di: As tolerated DIET AFTER DISCHARGE: ADA Wound/Incision Care: Ice to area for comfort, May get incision wet CHECKS AFTER DISCHARGE: Checks after discharge: Check blood sugar, ac/hs Comment: G-tube CERTIFICATION STATEMENT: Certification Statement: Certification Statement: Based on the above finding, I certify that this patient is confined to the home and needs intermittent half-way care, physical therapy and/or speech therapy, or continues to need occupational therapy.~ This patient is under my care, and I have initiated the establishment of the plan of care.~ This patient will be followed by myself or a community physician who will periodically review the plan of care. Home Meds Active Scripts Hydrocodone Bit/Acetaminophen (HYDROCODONE-APAP 10-325 ) 1 Tab Tablet, 1 TAB PO PRN Q6HRS PRN for SEVERE PAIN, 2nd choice for 10 Days, #20 TAB Prov:DIANELYS BLACKMON III DO 05/01/21 Reported Medications Insulin Aspart (NOVOLOG FLEXPEN) 100 Unit/1 Ml Insuln.pen, 3-7 SQ TIDACHC for Diabetes, SYR 02/07/21 Lisinopril (LISINOPRIL) 5 Mg Tablet, 1 TAB PO DAILY for Prevention, #30 TAB 5 Refills 02/07/21 Insulin Glargine,Hum.rec.anlog (LANTUS SOLOSTAR) 100 Unit/1 Ml Insuln.pen, 5 UNIT SQ QHS for diabetes, #15 ML 3 Refills 04/09/15 Atorvastatin Calcium (ATORVASTATIN CALCIUM) 40 Mg Tablet, 40 MG PO HS for FOR CHOLESTEROL, #30 TAB 0 Refills 04/09/15 DIANELYS BLACKMON III DO May 01, 2021 12:50
[2021-05-01] MEDS ORDERED: ONDA4TAB7 PO (12:51)
--- NOTE | 2021-05-01 13:08 | NUR ---
RN Note: Patient refusing to work with PT on stairs due to nausea and vomiting. PT stated yesterday patient's BP dropped to 70s/40s while working on stairs.
[2021-05-01 14:20] VITALS: BP 169/78
--- NOTE | 2021-05-01 19:00 | NUR ---
Discharge Note: ARIADNA BANKS [address] Discharge instructions and discharge home medications reviewed with Patient and a copy given. All questions have been answered and understanding verbalized. Patient instructed to follow up with Primary [facility]. Wound dressing and tracheostomy site changed prior to discharge. The following instructions and handouts were given: PEG tube care, Nausea/Vomiting, Zofran, Protonix, Prozac Discontinued lines and drains: PICC Line DL intact. Patient discharged to Home w/services with Spouse via Wheelchair
== END 2021-05-01 19:00 | disposition home health service (06) | DRG 4 ==
LOC: ER 18:44 → 5 NORTH 02-07 06:22 → 1 WEST ICU 02-16 10:52 → 6 SOUTH 04-15 14:07
PROVIDERS: ADMIT Internal Medicine; ATTEND Internal Medicine
PROC: XW033E5 Introduction of Remdesivir Anti-infective into Peripheral Vein, Percutaneous Approach, New Technology Group 5 (ICD-10-PCS; 2021-02-07)
PROC: 5A09557 Assistance with Respiratory Ventilation, Greater than 96 Consecutive Hours, Continuous Positive Airway Pressure (ICD-10-PCS; 2021-02-15)
PROC: 30233N1 Transfusion of Nonautologous Red Blood Cells into Peripheral Vein, Percutaneous Approach (ICD-10-PCS; principal; 2021-02-16)
PROC: 5A1955Z Respiratory Ventilation, Greater than 96 Consecutive Hours (ICD-10-PCS; 2021-02-17)
PROC: 0BH17EZ Insertion of Endotracheal Airway into Trachea, Via Natural or Artificial Opening (ICD-10-PCS; 2021-02-17)
PROC: 0DH64UZ Insertion of Feeding Device into Stomach, Percutaneous Endoscopic Approach (ICD-10-PCS; 2021-02-24)
PROC: 02HV33Z Insertion of Infusion Device into Superior Vena Cava, Percutaneous Approach (ICD-10-PCS; 2021-03-07)
PROC: B548ZZA Ultrasonography of Superior Vena Cava, Guidance (ICD-10-PCS; 2021-03-07)
PROC: 5A1D70Z Performance of Urinary Filtration, Intermittent, Less than 6 Hours Per Day (ICD-10-PCS; 2021-03-09)
PROC: 5A1D70Z Performance of Urinary Filtration, Intermittent, Less than 6 Hours Per Day (ICD-10-PCS; 2021-03-11)
PROC: 5A1D70Z Performance of Urinary Filtration, Intermittent, Less than 6 Hours Per Day (ICD-10-PCS; 2021-03-13)
PROC: 5A1D70Z Performance of Urinary Filtration, Intermittent, Less than 6 Hours Per Day (ICD-10-PCS; 2021-03-16)
PROC: 0B110F4 Bypass Trachea to Cutaneous with Tracheostomy Device, Open Approach (ICD-10-PCS; 2021-03-17)
PROC: 5A1D70Z Performance of Urinary Filtration, Intermittent, Less than 6 Hours Per Day (ICD-10-PCS; 2021-03-17)
PROC: 5A1D70Z Performance of Urinary Filtration, Intermittent, Less than 6 Hours Per Day (ICD-10-PCS; 2021-03-18)
PROC: 5A1D70Z Performance of Urinary Filtration, Intermittent, Less than 6 Hours Per Day (ICD-10-PCS; 2021-03-20)
PROC: 5A1D70Z Performance of Urinary Filtration, Intermittent, Less than 6 Hours Per Day (ICD-10-PCS; 2021-03-21)
PROC: 0DJ08ZZ Inspection of Upper Intestinal Tract, Via Natural or Artificial Opening Endoscopic (ICD-10-PCS; 2021-03-23)
PROC: 5A1D70Z Performance of Urinary Filtration, Intermittent, Less than 6 Hours Per Day (ICD-10-PCS; 2021-03-23)
PROC: 5A1D70Z Performance of Urinary Filtration, Intermittent, Less than 6 Hours Per Day (ICD-10-PCS; 2021-03-25)
PROC: 5A1D70Z Performance of Urinary Filtration, Intermittent, Less than 6 Hours Per Day (ICD-10-PCS; 2021-03-27)
PROC: 5A1D70Z Performance of Urinary Filtration, Intermittent, Less than 6 Hours Per Day (ICD-10-PCS; 2021-03-30)
PROC: 02H633Z Insertion of Infusion Device into Right Atrium, Percutaneous Approach (ICD-10-PCS; 2021-04-01)
PROC: 5A1D70Z Performance of Urinary Filtration, Intermittent, Less than 6 Hours Per Day (ICD-10-PCS; 2021-04-03)
PROC: 5A1D70Z Performance of Urinary Filtration, Intermittent, Less than 6 Hours Per Day (ICD-10-PCS; 2021-04-08)
PROC: 5A1D70Z Performance of Urinary Filtration, Intermittent, Less than 6 Hours Per Day (ICD-10-PCS; 2021-04-10)
PROC: 0D9630Z Drainage of Stomach with Drainage Device, Percutaneous Approach (ICD-10-PCS; 2021-04-13)
DX: U07.1 COVID-19 (principal); A41.89 Other specified sepsis; E11.10 Type 2 diabetes mellitus with ketoacidosis without coma; J12.82 Pneumonia due to coronavirus disease 2019; J80 Acute respiratory distress syndrome; N17.0 Acute kidney failure with tubular necrosis; B37.49 Other urogenital candidiasis; E87.0 Hyperosmolality and hypernatremia; E87.1 Hypo-osmolality and hyponatremia; E87.4 Mixed disorder of acid-base balance; Z43.1 Encounter for attention to gastrostomy; Z99.11 Dependence on respirator [ventilator] status; D64.9 Anemia, unspecified; D75.1 Secondary polycythemia; E11.43 Type 2 diabetes mellitus with diabetic autonomic (poly)neuropathy; E11.649 Type 2 diabetes mellitus with hypoglycemia without coma; E66.01 Morbid (severe) obesity due to excess calories; E78.00 Pure hypercholesterolemia, unspecified; E78.5 Hyperlipidemia, unspecified; E86.9 Volume depletion, unspecified; E87.6 Hypokalemia; E87.8 Other disorders of electrolyte and fluid balance, not elsewhere classified; I10 Essential (primary) hypertension; K31.84 Gastroparesis; L89.159 Pressure ulcer of sacral region, unspecified stage; Z68.39 Body mass index [BMI] 39.0-39.9, adult; Z88.5 Allergy status to narcotic agent; Z90.710 Acquired absence of both cervix and uterus; Z99.2 Dependence on renal dialysis; Z90.49 Acquired absence of other specified parts of digestive tract; Z88.8 Allergy status to other drugs, medicaments and biological substances; Z91.030 Bee allergy status; Z91.013 Allergy to seafood
CPT/HCPCS: 36415; 36430; 36556; 36569; 36600; 43235; 49450; 71045; 74018; 74230; 76937; 78264; 80048; 80053; 80069; 80076; 81001; 82040; 82550; 82607; 82803; 82805; 82962; 83036; 83540; 83550; 83690; 83735; 84075; 84100; 84132; 84478; 84484; 85007; 85025; 85027; 85610; 86140; 86706; 86850; 86900; 86901; 86920; 87040; 87070; 87077; 87086; 87106; 87186; 87205; 87340; 87426; 87493; 93005; 93970; 94003; 94640; 94660; 94760; 96361; 96374; 99153; A4213; A4930; A6219; A6402; A7521; A9541; B4087; C1769; C1892; J0330; J0360; J0456; J0690; J0696; J0780; J0878; J1100; J1170; J1450; J1630; J1644; J1650; J1815; J1940; J2020; J2060; J2185; J2248; J2250; J2370; J2405; J2543; J2704; J2710; J2765; J2930; J2997; J3010; J3370; J3475; J3480; J3490; J7030; J7040; J7050; J7060; P9016; P9046; Q9966; U0003; U0005; 92526-GN; 92610-GN; 92611-GN; 97110-GO; 97110-GP; 97116-GP; 97150-GP; 97530-GO; 97530-GP; 97535-GO; 99285-25; G0378; J7613

== ENCOUNTER 2021-05-06 18:54 | Inpatient (IN) | payer SELFPAY ==
[~2021-05-06] VITALS: Ht 162.6 cm; Wt 90.5 kg
[~2021-05-06 18:54] MED LIST changes: +ALBU2.5V8 NEB; +AMLO-187 PO; +FLUO20SO2 PEG; +HYDR-2769 PO; +INSU100I17 SQ; +INSU100V8 SQ; -LISI1TAB20 PO; +LISI1TAB39 PO; +LISI5TAB15 PO; +ONDA4TAB7 PO; +PANT40TA77 PO
[2021-05-06] MEDS ORDERED: IV NORMAL SALINE 1000ML BAG 1,000 ML IV ONE ×4 (19:30→21:15)
[2021-05-06] MEDS ORDERED: DEXTROSE 50% 25 GM / 50ML DISP.SYRIN. IV ONE (19:30)
[2021-05-06] MEDS ORDERED: GLUCAGON,HUMAN RECOMBINANT 1 MG/ML VIAL. IM ONE (19:45)
--- NOTE | 2021-05-06 19:59 | PHYS DOC ---
Past Medical History Past Medical History: Diabetes-Type II, High Cholesterol, Hypertension Past Surgical History: Cholecystectomy, Hysterectomy, Other Additional Past Surgical Histo: breast augmentation, abdominoplasty, right knee, LT CTR Smoking Status: Never Smoker Alcohol Use: Occasionally Drug Use: None General Adult EDM: Chief Complaint: HYPOTENSION HPI: HPI: Patient is a 46 year old female who presents with was diagnosed with Covid February 07 and just was released about a week ago. She does have a G-tube and she was on the vent. Patient was discharged home. She states since she has been home she has not been eating or drinking has been very weak. She states that she is continue to take her blood pressure medication and diabetes medication. Patient took 7 units of insulin this afternoon. Patient went and saw her primary care of which time every time she went to stand up she started to pass out became very diaphoretic and her blood pressure dropped drastically. Her blood sugar was only 61 at doctor's office. Patient refused EMS here to the hospital and have her take her. At the doctors office they gave her a couple pieces of salami, cheese, 2 mini Kellie candies and to peanut butter cups. She has kept that down. However upon arrival to our emergency room her blood sugar was 45. She remains alert and oriented. She states she is feeling dizzy, foggy headed and very weak. Review of Systems: Review of Systems: Constitutional: Denies fever or chills. [] Eyes: Denies change in visual acuity. [] HENT: Denies nasal congestion or sore throat. [] Respiratory: Denies cough or shortness of breath. [] Cardiovascular: Denies chest pain or edema. [] GI: Denies abdominal pain, +nausea, +vomiting, denies bloody stools or diarrhea. [] : Denies dysuria. [] Musculoskeletal: Denies back pain or joint pain. + Generalized weakness [] Integument: Denies rash. [] Neurologic: Denies headache, focal weakness or sensory changes. + Dizziness, + fogginess [] Endocrine: Denies polyuria or polydipsia. [] Lymphatic: Denies swollen glands. [] Psychiatric: Denies depression or anxiety. [] Heart Score: C/O Chest Pain: No Current Medications: Current Medications Medications (Trade) Dose Ordered Sig/Pepe Start Time Stop Time Status Last Admin Dose Admin Dextrose (Dextrose 50%-Water Syringe) 25 gm 1X ONCE 05/06/21 19:30 05/06/21 19:31 DC Sodium Chloride 1,000 ml @ 1,000 mls/hr 1X ONCE 05/06/21 19:30 05/06/21 20:29 Allergies: Allergies: Allergies Coded Allergies Type Severity Reaction Last Updated Verified venom-honey bee Allergy Severe Shortness of Air 03/23/21 Yes oxycodone Allergy Intermediate Itching 03/23/21 No shellfish derived Allergy Intermediate Itching 03/23/21 No Physical Exam: PE: Constitutional: Well developed, well nourished, no acute distress, non-toxic appearance. [] HENT: Normocephalic, atraumatic, bilateral external ears normal, oropharynx moist, no oral exudates, nose normal. [] Eyes: PERRLA, EOMI, conjunctiva normal, no discharge. [] Neck: Normal range of motion, no tenderness, supple, no stridor. [] Cardiovascular:Heart rate regular rhythm, no murmur [] Lungs & Thorax: Bilateral breath sounds clear to auscultation [] Abdomen: Bowel sounds normal, soft, no tenderness, no masses, no pulsatile masses. [] Skin: Warm, dry, no erythema, no rash. Bed Sore on buttock. [] Back: No tenderness, no CVA tenderness. [] Extremities: No tenderness, no cyanosis, no clubbing, ROM intact, no edema. [] Neurologic: Alert and oriented X 3, normal motor function, normal sensory function, no focal deficits noted. [] Psychologic: Affect normal, judgement normal, mood normal. [] Current Patient Data: Labs: Laboratory Tests Test 05/06/21 19:19 Glucose (Fingerstick) 45 mg/dL (70-99) *L EKG: EK and read by Dr. Marrufo as a sinus rhythm and no STEMI Radiology/Procedures: Radiology/Procedures: [] Impression: [facility] [address] [place], [place] [id number] IMAGING REPORT Signed PATIENT: ARIADNA BANKS ACCOUNT: [id number] : 1975 LOCATION: ER AGE: 46 SEX: F EXAM STATUS: REG ER ORD. PHYSICIAN: WICHO WASHINGTON APRN REASON: low blood pressure, post covid PROCEDURE: PORTABLE CHEST 1V EXAMINATION: Chest radiograph. VIEWS: Single AP view of the chest COMPARISON: 03/30/2021 INDICATION:46 years, Female, low blood pressure, post Covid. FINDINGS: Normal cardiomediastinal silhouette. No focal consolidation. No pleural effusion or pneumothorax. No acute osseous process. IMPRESSION: No acute cardiopulmonary process. Electronically signed by: Stacy Holliday DO (05/06/2021 8:11 PM) [facility] DICTATED and SIGNED BY: STACY HOLLIDAY DO DATE: 05/06/[id number] 0 Course & Med Decision Making: Course & Med Decision Making Pertinent Labs and Imaging studies reviewed. (See chart for details) See HPI. Alert and oriented times x 4. Patient is very weak. Abdomen is soft and nontender. Blood sugar 45. Patient is a very hard stick and nursing is h aving trouble getting an IV started. Patient is given IM glucagon and I told nursing to give her some milk to see if she can keep it down. Patient has cut down milk and her last glucose is 65. We will continue to monitor. Patient's white blood cell count has jumped to 17.6. Patient does have a bedsore to her coccyx looks to be about a stage III. Wound is 4 inches x 1.5 inches. patient states she has not been on any antibiotics and wound care stated to her and her that they had insurance they would not come. He states that the plan for her dismissal was for her to go to a rehab facility and that they were filling out paperwork for this. He states that that was never done he does not understand why. I spoke to Dr. Mccauley for admission. He states for maintenance fluids to be at 100 mL an hour of normal saline. [] Sven Disclaimer: Sven Disclaimer: This electronic medical record was generated, in whole or in part, using a voice recognition dictation system. Departure Departure Impression: Primary Impression: Hypoglycemia Additional Impressions: Hypotension Qualified Codes: I95.9 - Hypotension, unspecified Wound infection UTI (urinary tract infection) Qualified Codes: N39.0 - Urinary tract infection, site not specified Disposition: ADMITTED INPATIENT Admitting Physician: CHU Condition: STABLE Referrals: BLANE LOVE MD (PCP) WICHO WASHINGTON APRN May 06, 2021 19:58
--- NOTE | 2021-05-06 20:14 | RAD ---
EXAMINATION: Chest radiograph. VIEWS: Single AP view of the chest COMPARISON: 03/30/2021 INDICATION:46 years, Female, low blood pressure, post Covid. FINDINGS: Normal cardiomediastinal silhouette. No focal consolidation. No pleural effusion or pneumothorax. No acute osseous process. IMPRESSION: No acute cardiopulmonary process. Electronically signed by: Derick Holliday DO (05/06/2021 8:11 PM) [facility]
--- NOTE | 2021-05-06 20:15 | EKG ---
[facility] [address] [place] [address] Test Date: 2021-05-06 Test Time: 20:11:29 Pat Name: ARIADNA BANKS Department: Room: Gender: F Pan Dumper: : 1975 Requested By: WICHO WASHINGTON Order Number: [id number] Reading MD: Raúl Santos Measurements Intervals [place] Rate: 100 P: 81 MA: 152 QRS: 51 QRSD: 78 T: 33 QT: 348 QTc: 452 Interpretive Statements SINUS RHYTHM Electronically Signed On 05-08-2021 13:33:09 CDT by Raúl Santos
[2021-05-06 20:39] LABS: BASO # 0.1 x10^3/uL (0.0-0.2); BASO % 1 % (0-3); EOS # 0.2 x10^3/uL (0.0-0.7); EOS % 1 % (0-3); HEMATOCRIT 31.2 % (36.0-47.0); HEMOGLOBIN 10.8 g/dL (12.0-15.5); LYMPH # 3.2 x10^3/uL (1.0-4.8); LYMPH % 18 % (24-48); MEAN CORPUSCULAR HEMOGLOBIN 30 pg (25-35); MEAN CORPUSCULAR HGB CONC 35 g/dL (31-37); MEAN CORPUSCULAR VOLUME 86 fL (79-100); MONO # 1.1 x10^3/uL (0.0-1.1); MONO % 6 % (0-9); NEUT % 74 % (31-73); PLATELET COUNT 379 x10^3/uL (140-400); RED BLOOD COUNT 3.63 x10^6/uL (3.50-5.40); RED CELL DISTRIBUTION WIDTH 15.5 % (11.5-14.5); WHITE BLOOD COUNT 17.6 x10^3/uL (4.0-11.0)
[2021-05-06 20:46] LABS: CALCIUM 8.5 mg/dL (8.5-10.1); CREATININE 2.2 mg/dL (0.6-1.0); GFR 24.1; POTASSIUM 3.4 mmol/L (3.5-5.1)
[2021-05-06 20:52] LABS: ALBUMIN 3.5 g/dL (3.4-5.0); ALBUMIN/GLOBULIN RATIO 0.8 (1.0-1.7); MAGNESIUM 1.8 mg/dL (1.8-2.4); TOTAL BILIRUBIN 0.4 mg/dL (0.2-1.0); TOTAL PROTEIN 7.7 g/dL (6.4-8.2)
[2021-05-06 21:06] LABS: BILIRUBIN,URINE NEGATIVE (NEG); CLARITY,URINE CLOUDY; COLOR,URINE YELLOW; NITRITE,URINE NEGATIVE (NEG); PH,URINE 5.5 (<5.0-8.0); PROTEIN,URINE NEGATIVE (NEG-TRACE); UROBILINOGEN,URINE 0.2 mg/dL (0.2 mg/dL)
[2021-05-06 21:12] LABS: % EOS 1 % (0-5); % LYMPHS 19 % (24-48); % MONOS 6 % (0-10); % SEGS 74 % (35-66)
[2021-05-06 21:13] LABS: PLT ESTIMATE ADEQUATE (ADEQUATE)
[2021-05-06] MEDS ORDERED: CALCIUM CARBONATE 500 MG TAB.CHEW PO PRN (21:15)
[2021-05-06] MEDS ORDERED: ONDANSETRON PF 4 MG/2 ML VIAL. IVP PRN (21:15)
[2021-05-06] MEDS ORDERED: MAGNESIUM HYDROXIDE 2,400 MG/30 ML ORAL.SUSP. PO PRN (21:15)
[2021-05-06] MEDS ORDERED: DEXTROSE 50% 25 GM / 50ML DISP.SYRIN. IV PRN (21:15)
[2021-05-06] MEDS ORDERED: ACETAMINOPHEN 325 MG TABLET. PO PRN ×2 (21:15)
[2021-05-06] MEDS ORDERED: ALBUMIN HUMAN 5% 250 ML IV PRN (21:15)
[2021-05-06] MEDS ORDERED: MAG HYDROX/ALUMINUM HYD/SIMETH 30 ML ORAL.SUSP PO PRN (21:15)
[2021-05-06 21:19] LABS: BACTERIA,URINE MANY /HPF (0-FEW); HYALINE CASTS, URINE MODERATE /HPF; RBC,URINE 0 /HPF (0-2); WBC,URINE TNTC /HPF (0-4)
[2021-05-06] MEDS ORDERED: cefTRIAXone IV Push 1 GM VIAL. IVP ONE (21:30)
[2021-05-06 23:00] VITALS: BP 108/72
[2021-05-07] MEDS: diphenhydrAMINE 50 MG/ML VIAL IVP PRN ×2 (00:57→21:35)
[2021-05-07] MEDS: HYDROmorphone 2 MG/ML VIAL IVP PRN ×2 (00:57→07:36)
[2021-05-07 03:00] VITALS: BP 109/57
[2021-05-07] MEDS: HEPARIN for SUB-Q USE 5,000 UNIT/ML VIAL. SQ SCH ×3 (05:28→22:50)
[2021-05-07 07:00] VITALS: BP 76/33
[2021-05-07 07:33] LABS: BASO % 0 % (0-3); EOS # 0.1 x10^3/uL (0.0-0.7); EOS % 1 % (0-3); HEMATOCRIT 27.2 % (36.0-47.0); HEMOGLOBIN 9.3 g/dL (12.0-15.5); LYMPH # 2.7 x10^3/uL (1.0-4.8); LYMPH % 19 % (24-48); MEAN CORPUSCULAR HEMOGLOBIN 29 pg (25-35); MEAN CORPUSCULAR HGB CONC 34 g/dL (31-37); MEAN CORPUSCULAR VOLUME 86 fL (79-100); MONO # 0.9 x10^3/uL (0.0-1.1); MONO % 6 % (0-9); NEUT # 10.2 x10^3/uL (1.8-7.7); NEUT % 73 % (31-73); PLATELET COUNT 327 x10^3/uL (140-400); RED BLOOD COUNT 3.17 x10^6/uL (3.50-5.40); RED CELL DISTRIBUTION WIDTH 15.9 % (11.5-14.5); WHITE BLOOD COUNT 13.9 x10^3/uL (4.0-11.0)
[2021-05-07 07:59] LABS: C-REACTIVE PROTEIN 3.8 mg/L (0-3.3); CALCIUM 8.1 mg/dL (8.5-10.1); CREATININE 1.6 mg/dL (0.6-1.0); GFR 34.9; POTASSIUM 3.2 mmol/L (3.5-5.1)
--- NOTE | 2021-05-07 08:12 | PDOC1 ---
History and Physical Date of Admission Date of Admission DATE: 05/07/21 TIME: 08:12 Identification/Chief Complaint Chief Complaint Weakness Source Source: Chart review, Patient History of Present Illness History of Present Illness Ms Borges is a 46 year old female w/ PMHx DM2, HTN, HLD who presents to ED c/o worsening weakness, lightheadedness and diaphoresis with near syncope and hypoglycemia at her PCPs office. She had a prolonged stay due to COVID-19 from February 07 until May 01 where she required temporary hemodialysis tracheostomy and subsequent reversal PEG placement 03/27/2021. She did develop a bedsore during this time as well and since being home over the last 6 days has felt like she has "taken a step back". She would repeat PCPs office and despite taking minimal insulin her blood sugar was 60 in the office, given glucose there and instructed to go to ED. She was home with home health but has had difficulty getting up because of her lightheadedness. In emergency room her blood sugar was 45. She remains alert and oriented. She states she is feeling dizzy, foggy headed and very weak. Chest radiograph with no acute abnormalities, WBC 17.6, Hb 10.6, platelets 379, NA 123, K3.4, BUN 25, CR 2.2, albumin 3.5, alk phos 126 otherwise LFTs within normal laboratory limits urinalysis with large leuk esterase Admitted for further care. Past Medical History Cardiovascular: HTN Infectious disease: No pertinent hx Renal/: No pertinent hx Endocrine: Diabetes Past Surgical History Past Surgical History Cholecystectomy, Hysterectomy, PEG 03/27/2021, breast augmentation, abdominoplasty, right knee, LT [facility] Past Surgical History: Cholecystectomy, Other Family History Family History: No Significant Social History Smoke: No ALCOHOL: none Drugs: None Current Problem List Problem List Problems Medical Problems: (1) Hypoglycemia Status: Acute (2) Hypotension Status: Acute (3) UTI (urinary tract infection) Status: Acute (4) Wound infection Status: Acute Current Medications Current Medications Current Medications Sodium Chloride 1,000 ml @ 1,000 mls/hr 1X ONCE IV Last administered on 05/06/21at 19:30; Start 05/06/21 at 19:30; Stop 05/06/21 at 20:29; Status DC Sodium Chloride 1,000 ml @ 1,000 mls/hr 1X ONCE IV Last administered on 05/06/21at 23:53; Start 05/06/21 at 19:30; Stop 05/06/21 at 20:29; Status DC Dextrose (Dextrose 50%-Water Syringe) 25 gm 1X ONCE IV Last administered on 05/06/21at 20:36; Start 05/06/21 at 19:30; Stop 05/06/21 at 19:31; Status DC Glucagon (Glucagen) 1 mg 1X ONCE IM Last administered on 05/06/21at 20:02; Start 05/06/21 at 19:45; Stop 05/06/21 at 19:46; Status DC Sodium Chloride 1,000 ml @ 1,000 mls/hr 1X ONCE IV Last administered on 05/06at 21:00; Start 05/06/21 at 21:00; Stop 05/06/21 at 21:59; Status DC Ondansetron HCl (Zofran) 4 mg PRN Q8HRS PRN IVP NAUSEA/VOMITING Last administered on 05/07/21at 07:35; Start 05/06/21 at 21:15; Stop 05/07/21 at 21:14 Acetaminophen (Tylenol) 650 mg PRN Q4HRS PRN PO FEVER > 100.3'F; Start 05/06/21 at 21:15; Stop 05/07/21 at 21:14 Sodium Chloride 1,000 ml @ 100 mls/hr 1X ONCE IV Last administered on 05/07/21at 00:59; Start 05/06/21 at 21:15; Stop 05/07/21 at 07:14; Status DC Albumin Human 250 ml @ 62.5 mls/hr 1X PRN IV SEE COMMENTS; Start 05/06/21 at 21:15 Dextrose (Dextrose 50%-Water Syringe) 12.5 gm PRN Q15MIN PRN IV SEE COMMENTS; Start 05/06/21 at 21:15 Hydromorphone HCl (Dilaudid) 1 mg PRN Q2HRS PRN IVP SEVERE PAIN 7-10 Last admin istered on 05/07/21at 07:36; Start 05/06/21 at 21:15 Ondansetron HCl (Zofran) 4 mg PRN Q6HRS PRN IVP NAUSEA/VOMITING 1st choice; Start 05/06/21 at 21:15 Prochlorperazine Edisylate (Compazine) 10 mg PRN Q6HRS PRN IVP NAUSEA/VOMITING 2ND CHOICE; Start 05/06/21 at 21:15 Al Hydroxide/Mg Hydroxide (Mylanta Plus Xs) 30 ml PRN Q3HRS PRN PO HEARTBURN / GAS; Start 05/06/21 at 21:15 Calcium Carbonate/ Glycine (Tums) 500 mg PRN Q3HRS PRN PO UPSET STOMACH; Start 05/06/21 at 21:15 Zolpidem Tartrate (Ambien) 5 mg PRN QHS PRN PO INSOMNIA, MAY REPEAT IN 1HR; Start 05/06/21 at 21:15 Acetaminophen (Tylenol) 650 mg PRN Q6HRS PRN PO Headaches, Temp > 101.5F; Start 05/06/21 at 21:15 Magnesium Hydroxide (Milk Of Magnesia) 2,400 mg PRN Q12HR PRN PO CONSTIPATION; Start 05/06/21 at 21:15 Heparin Sodium (Porcine) (Heparin Sodium) 5,000 unit Q8HRS SQ Last administered on 05/07/21at 05:28; Start 05/07/21 at 06:00 Lorazepam (Ativan Inj) 1 mg PRN Q4HRS PRN IVP ANXIETY / AGITATION Last administered on 05/07/21at 07:35; Start 05/06/21 at 21:30 Diphenhydramine HCl (Benadryl) 25 mg PRN QHS PRN IVP INSOMNIA Last administered on 05/07/21at 00:57; Start 05/06/21 at 21:30 Ceftriaxone Sodium (Rocephin) 1 gm 1X ONCE IVP Last administered on 05/06/21at 22:23; Start 05/06/21 at 21:30; Stop 05/06/21 at 21:31; Status DC Influenza Virus Vaccine Quadrival (Flulaval Quad [id number] Syringe) 0.5 ml ONCE ONCE VAX IM ; Start 05/07/21 at 09:00; Stop 05/07/21 at 09:01 Pantoprazole Sodium (Protonix) 40 mg DAILYAC PO ; Start 05/07/21 at 08:15 Active Scripts Active Zofran (Ondansetron Hcl) 4 Mg Tablet 1 Tab PO Q6HRS Lantus (Insulin Glargine,Hum.rec.anlog) 100 Unit/1 Ml Vial 20 Unit SQ BID 30 Days Pantoprazole Sodium (Pantoprazole Sodium) 40 Mg Tablet.dr 40 Mg PO DAILYAC 30 Days Fluoxetine Hcl 20 Mg/5 Ml Solution 20 Mg PEG DAILY 30 Days Hydrocodone-Apap 10-325 (Hydrocodone Bit/Acetaminophen) 1 Tab Tablet 1 Tab PO PRN Q6HRS PRN 10 Days Amlodipine Besylate 10 Mg Tablet 10 Mg PO DAILY 30 Days Proair Hfa (Albuterol Sulfate) 8.5 Gm Hfa.aer.ad 2.5 Mg NEB PRN Q4HRS PRN 14 Days Reported Novolog Flexpen (Insulin Aspart) 100 Unit/1 Ml Insuln.pen 3-7 SQ TIDACHC Lisinopril 5 Mg Tablet 1 Tab PO DAILY Atorvastatin Calcium 40 Mg Tablet 40 Mg PO HS Allergies Allergies: Coded Allergies: venom-honey bee (Verified Allergy, Severe, Shortness of Air, 03/23/21) oxycodone (Unverified Allergy, Intermediate, Itching, 03/23/21) shellfish derived (Unverified Allergy, Intermediate, Itching, 03/23/21) tree nut (Verified Allergy, Unknown, 05/06/21) ROS General: YES: Fatigue, Malaise, Appetite; No: Chills, Night Sweats, Other PSYCHOLOGICAL ROS: YES: Anxiety; No: Behavioral Disorder, Concentration difficultie, Decreased libido, Depression, Disorientation, Hallucinations, Hostility, Irritablity, Memory difficulties, Mood Swings, Obsessive thoughts, Physical abuse, Sexual abuse, Sleep disturbances, Suicidal ideation, Other Eyes: No Blurry vision, No Decreased vision, No Double vision, No Dry eyes, No Excessive tearing, No Eye Pain, No Itchy Eyes, No Loss of vision, No Photophobia, No Scotomata, No Uses contacts, No Uses glasses, No Other HEENT: No: Heacaches, Visual Changes, Hearing change, Nasal congestion, Nasal discharge, Oral lesions, Sinus pain, Sore Throat, Epistaxis, Sneezing, Snoring, Tinnitus, Vertigo, Vocal changes, Other ALLERGY AND IMMUNOLOGY: No: Hives, Insect Bite Sensitivity, Itchy/Watery Eyes, Nasal Congestion, Post Nasal Drip, Seasonal Allergies, Other Hematological and Lymphatic: No: Bleeding Problems, Blood Clots, Blood Transfusions, Brusing, Night Sweats, Pallor, Swollen Lymph Nodes, Other ENDOCRINE: No: Breast Changes, Galactorrhea, Hair Pattern Changes, Hot Flashes, Malaise/lethargy, Mood Swings, Palpitations, Polydipsia/polyuria, Skin Changes, Temperature Intolerance, Unexpected Weight Changes, Other Breast: No New/Changing Breast Lumps, No Nipple changes, No Nipple discharge, No Other Respiratory: No: Cough, Hemoptysis, Orthopnea, Pleuritic Pain, Shortness of breath, SOB with excertion, Sputum Changes, Stridor, Tachypnea, Wheezing, Other Cardiovascular: No Chest Pain, No Palpitations, No Orthopnea, No Paroxysmal Noc. Dyspnea, No Edema, No Lt Headedness, No Other Gastrointestinal: Yes Nausea, Yes Vomiting, Yes Abdominal Pain; No Diarrhea, No Constipation, No Melena, No Hematochezia, No Other Genitourinary: No Dysuria, No Frequency, No Incontinence, No Hematuria, No Retention, No Discharge, No Urgency, No Pain, No Flank Pain, No Other, No , No , No , No , No , No , No Musculoskeletal: Yes Gait Disturbance, Yes Muscular Weakness; No Joint Pain, No Joint Stiffness, No Joint Swelling, No Muscle Pain, No Pain In:, No Swelling In:, No Other Neurological: Yes Confusion; No Behavorial Changes, No Bowel/Bladder ControlChng, No Dizziness, No Gait Disturbance, No Headaches, No Impaired Coord/balance, No Memory Loss, No Numbness/Tingling, No Seizures, No Speech Problems, No Tremors, No Visual Changes, No Weakness, No Other Skin: No Dry Skin, No Eczema, No Hair Changes, No Lumps, No Mole Changes, No Mottling, No Nail Changes, No Pruritus, No Rash, No Skin Lesion Changes, No Other, No Acne Physical Exam General: Alert, Cooperative, moderate distress HEENT: Atraumatic, PERRLA, EOMI, Mucous membr. moist/pink Lungs: Clear to auscultation, Normal air movement Heart: S1S2, RRR, no thrills, no rubs, no gallops, no murmurs Abdomen: Normal bowel sounds, Soft, No hepatosplenomegaly, No masses, Other (PEG in place) Skin: Other (Stage 3 4x10x0.3 ulcer) Neuro: Normal tone, Sensation intact, Cranial nerves 3-12 NL, Reflexes 2+ Psych/Mental Status: Other (drowsy) Vitals Vitals Vital Signs Date Time Temp Pulse Resp B/P (MAP) Pulse Ox O2 Delivery O2 Flow Rate FiO2 05/07/21 07:43 Room Air 05/07/21 07:36 99 05/07/21 03:00 99.1 94 20 109/57 (74) 98.0 99.1 Labs Labs Laboratory Tests Test 05/06/21 19:19 05/06/21 20:01 05/06/21 20:30 05/06/21 20:31 Glucose (Fingerstick) 45 mg/dL (70-99) 49 mg/dL (70-99) 65 mg/dL (70-99) White Blood Count 17.6 x10^3/uL (4.0-11.0) Red Blood Count 3.63 x10^6/uL (3.50-5.40) Hemoglobin 10.8 g/dL (12.0-15.5) Hematocrit 31.2 % (36.0-47.0) Mean Corpuscular Volume 86 fL (79-100) Mean Corpuscular Hemoglobin 30 pg (25-35) Mean Corpuscular Hemoglobin Concent 35 g/dL (31-37) Red Cell Distribution Width 15.5 % (11.5-14.5) Platelet Count 379 x10^3/uL (140-400) Neutrophils (%) (Auto) 74 % (31-73) Lymphocytes (%) (Auto) 18 % (24-48) Monocytes (%) (Auto) 6 % (0-9) Eosinophils (%) (Auto) 1 % (0-3) Basophils (%) (Auto) 1 % (0-3) Neutrophils # (Auto) 13.0 x10^3/uL (1.8-7.7) Lymphocytes # (Auto) 3.2 x10^3/uL (1.0-4.8) Monocytes # (Auto) 1.1 x10^3/uL (0.0-1.1) Eosinophils # (Auto) 0.2 x10^3/uL (0.0-0.7) Basophils # (Auto) 0.1 x10^3/uL (0.0-0.2) Segmented Neutrophils % 74 % (35-66) Lymphocytes % 19 % (24-48) Monocytes % 6 % (0-10) Eosinophils % 1 % (0-5) Platelet Estimate Adequate (ADEQUATE) Large Platelets Occ Giant Platelets Occ Polychromasia Sodium Level 123 mmol/L (136-145) Potassium Level 3.4 mmol/L (3.5-5.1) Chloride Level 86 mmol/L (98-107) Carbon Dioxide Level 30 mmol/L (21-32) Anion Gap 7 (6-14) Blood Urea Nitrogen 25 mg/dL (7-20) Creatinine 2.2 mg/dL (0.6-1.0) Estimated GFR (Cockcroft-Gault) 24.1 BUN/Creatinine Ratio 11 (6-20) Glucose Level 107 mg/dL (70-99) Calcium Level 8.5 mg/dL (8.5-10.1) Magnesium Level 1.8 mg/dL (1.8-2.4) Total Bilirubin 0.4 mg/dL (0.2-1.0) Aspartate Amino Transf (AST/SGOT) 22 U/L (15-37) Alanine Aminotransferase (ALT/SGPT) 23 U/L (14-59) Alkaline Phosphatase 126 U/L (46-116) Troponin I Quantitative < 0.017 ng/mL (0.000-0.055) UV-Gvd-V-Type Natriuretic Peptide 107 pg/mL (0-124) Total Protein 7.7 g/dL (6.4-8.2) Albumin 3.5 g/dL (3.4-5.0) Albumin/Globulin Ratio 0.8 (1.0-1.7) Test 05/06/21 20:58 05/06/21 21:00 05/06/21 23:50 05/07/21 06:30 Glucose (Fingerstick) 205 mg/dL (70-99) Urine Collection Type Unknown Urine Color Yellow Urine Clarity Cloudy Urine pH 5.5 (<5.0-8.0) Urine Specific [place] 1.010 (1.000-1.030) Urine Protein Negative mg/dL (NEG-TRACE) Urine Glucose (UA) 100 mg/dL (NEG) Urine Ketones (Stick) Negative mg/dL (NEG) Urine Blood Negative (NEG) Urine Nitrite Negative (NEG) Urine Bilirubin Negative (NEG) Urine Urobilinogen Dipstick 0.2 mg/dL (0.2 mg/dL) Urine Leukocyte Esterase Large (NEG) Urine RBC 0 /HPF (0-2) Urine WBC Tntc /HPF (0-4) Urine Squamous Epithelial Cells Many /LPF Urine Bacteria Many /HPF (0-FEW) Urine Hyaline Casts Moderate /HPF Urine Mucus Slight /LPF Lactic Acid Level 1.2 mmol/L (0.4-2.0) White Blood Count 13.9 x10^3/uL (4.0-11.0) Red Blood Count 3.17 x10^6/uL (3.50-5.40) Hemoglobin 9.3 g/dL (12.0-15.5) Hematocrit 27.2 % (36.0-47.0) Mean Corpuscular Volume 86 fL (79-100) Mean Corpuscular Hemoglobin 29 pg (25-35) Mean Corpuscular Hemoglobin Concent 34 g/dL (31-37) Red Cell Distribution Width 15.9 % (11.5-14.5) Platelet Count 327 x10^3/uL (140-400) Neutrophils (%) (Auto) 73 % (31-73) Lymphocytes (%) (Auto) 19 % (24-48) Monocytes (%) (Auto) 6 % (0-9) Eosinophils (%) (Auto) 1 % (0-3) Basophils (%) (Auto) 0 % (0-3) Neutrophils # (Auto) 10.2 x10^3/uL (1.8-7.7) Lymphocytes # (Auto) 2.7 x10^3/uL (1.0-4.8) Monocytes # (Auto) 0.9 x10^3/uL (0.0-1.1) Eosinophils # (Auto) 0.1 x10^3/uL (0.0-0.7) Basophils # (Auto) 0.0 x10^3/uL (0.0-0.2) Sodium Level 131 mmol/L (136-145) Potassium Level 3.2 mmol/L (3.5-5.1) Chloride Level 96 mmol/L (98-107) Carbon Dioxide Level 27 mmol/L (21-32) Anion Gap 8 (6-14) Blood Urea Nitrogen 23 mg/dL (7-20) Creatinine 1.6 mg/dL (0.6-1.0) Estimated GFR (Cockcroft-Gault) 34.9 Glucose Level 89 mg/dL (70-99) Calcium Level 8.1 mg/dL (8.5-10.1) C-Reactive Protein, Quantitative 3.8 mg/L (0-3.3) Test 05/07/21 07:52 Glucose (Fingerstick) 125 mg/dL (70-99) Laboratory Tests Test 05/06/21 19:19 05/06/21 20:01 05/06/21 20:30 05/06/21 20:31 Glucose (Fingerstick) 45 mg/dL (70-99) 49 mg/dL (70-99) 65 mg/dL (70-99) White Blood Count 17.6 x10^3/uL (4.0-11.0) Red Blood Count 3.63 x10^6/uL (3.50-5.40) Hemoglobin 10.8 g/dL (12.0-15.5) Hematocrit 31.2 % (36.0-47.0) Mean Corpuscular Volume 86 fL (79-100) Mean Corpuscular Hemoglobin 30 pg (25-35) Mean Corpuscular Hemoglobin Concent 35 g/dL (31-37) Red Cell Distribution Width 15.5 % (11.5-14.5) Platelet Count 379 x10^3/uL (140-400) Neutrophils (%) (Auto) 74 % (31-73) Lymphocytes (%) (Auto) 18 % (24-48) Monocytes (%) (Auto) 6 % (0-9) Eosinophils (%) (Auto) 1 % (0-3) Basophils (%) (Auto) 1 % (0-3) Neutrophils # (Auto) 13.0 x10^3/uL (1.8-7.7) Lymphocytes # (Auto) 3.2 x10^3/uL (1.0-4.8) Monocytes # (Auto) 1.1 x10^3/uL (0.0-1.1) Eosinophils # (Auto) 0.2 x10^3/uL (0.0-0.7) Basophils # (Auto) 0.1 x10^3/uL (0.0-0.2) Segmented Neutrophils % 74 % (35-66) Lymphocytes % 19 % (24-48) Monocytes % 6 % (0-10) Eosinophils % 1 % (0-5) Platelet Estimate Adequate (ADEQUATE) Large Platelets Occ Giant Platelets Occ Polychromasia Sodium Level 123 mmol/L (136-145) Potassium Level 3.4 mmol/L (3.5-5.1) Chloride Level 86 mmol/L (98-107) Carbon Dioxide Level 30 mmol/L (21-32) Anion Gap 7 (6-14) Blood Urea Nitrogen 25 mg/dL (7-20) Creatinine 2.2 mg/dL (0.6-1.0) Estimated GFR (Cockcroft-Gault) 24.1 BUN/Creatinine Ratio 11 (6-20) Glucose Level 107 mg/dL (70-99) Calcium Level 8.5 mg/dL (8.5-10.1) Magnesium Level 1.8 mg/dL (1.8-2.4) Total Bilirubin 0.4 mg/dL (0.2-1.0) Aspartate Amino Transf (AST/SGOT) 22 U/L (15-37) Alanine Aminotransferase (ALT/SGPT) 23 U/L (14-59) Alkaline Phosphatase 126 U/L (46-116) Troponin I Quantitative < 0.017 ng/mL (0.000-0.055) FS-Azq-L-Type Natriuretic Peptide 107 pg/mL (0-124) Total Protein 7.7 g/dL (6.4-8.2) Albumin 3.5 g/dL (3.4-5.0) Albumin/Globulin Ratio 0.8 (1.0-1.7) Test 05/06/21 20:58 05/06/21 21:00 05/06/21 23:50 05/07/21 06:30 Glucose (Fingerstick) 205 mg/dL (70-99) Urine Collection Type Unknown Urine Color Yellow Urine Clarity Cloudy Urine pH 5.5 (<5.0-8.0) Urine Specific [place] 1.010 (1.000-1.030) Urine Protein Negative mg/dL (NEG-TRACE) Urine Glucose (UA) 100 mg/dL (NEG) Urine Ketones (Stick) Negative mg/dL (NEG) Urine Blood Negative (NEG) Urine Nitrite Negative (NEG) Urine Bilirubin Negative (NEG) Urine Urobilinogen Dipstick 0.2 mg/dL (0.2 mg/dL) Urine Leukocyte Esterase Large (NEG) Urine RBC 0 /HPF (0-2) Urine WBC Tntc /HPF (0-4) Urine Squamous Epithelial Cells Many /LPF Urine Bacteria Many /HPF (0-FEW) Urine Hyaline Casts Moderate /HPF Urine Mucus Slight /LPF Lactic Acid Level 1.2 mmol/L (0.4-2.0) White Blood Count 13.9 x10^3/uL (4.0-11.0) Red Blood Count 3.17 x10^6/uL (3.50-5.40) Hemoglobin 9.3 g/dL (12.0-15.5) Hematocrit 27.2 % (36.0-47.0) Mean Corpuscular Volume 86 fL (79-100) Mean Corpuscular Hemoglobin 29 pg (25-35) Mean Corpuscular Hemoglobin Concent 34 g/dL (31-37) Red Cell Distribution Width 15.9 % (11.5-14.5) Platelet Count 327 x10^3/uL (140-400) Neutrophils (%) (Auto) 73 % (31-73) Lymphocytes (%) (Auto) 19 % (24-48) Monocytes (%) (Auto) 6 % (0-9) Eosinophils (%) (Auto) 1 % (0-3) Basophils (%) (Auto) 0 % (0-3) Neutrophils # (Auto) 10.2 x10^3/uL (1.8-7.7) Lymphocytes # (Auto) 2.7 x10^3/uL (1.0-4.8) Monocytes # (Auto) 0.9 x10^3/uL (0.0-1.1) Eosinophils # (Auto) 0.1 x10^3/uL (0.0-0.7) Basophils # (Auto) 0.0 x10^3/uL (0.0-0.2) Sodium Level 131 mmol/L (136-145) Potassium Level 3.2 mmol/L (3.5-5.1) Chloride Level 96 mmol/L (98-107) Carbon Dioxide Level 27 mmol/L (21-32) Anion Gap 8 (6-14) Blood Urea Nitrogen 23 mg/dL (7-20) Creatinine 1.6 mg/dL (0.6-1.0) Estimated GFR (Cockcroft-Gault) 34.9 Glucose Level 89 mg/dL (70-99) Calcium Level 8.1 mg/dL (8.5-10.1) C-Reactive Protein, Quantitative 3.8 mg/L (0-3.3) Test 05/07/21 07:52 Glucose (Fingerstick) 125 mg/dL (70-99) Images Images Normal cardiomediastinal silhouette. No focal consolidation. No pleural effusion or pneumothorax. No acute osseous process. IMPRESSION: No acute cardiopulmonary process. VTE Prophylaxis Ordered VTE Prophylaxis Devices: Yes VTE Pharmacological Prophylaxi: Yes Assessment/Plan Assessment/Plan A/P: Hypoglycemia- taking glargine insulin with insufficient PO intake, will check cortisol levels as well given her prolonged steroid course N/V, abdominal pain - consider PEG removal. CT abdomen. GI consulted Weakness - with hypotension, will check AM cortisol Hyponatremia - hypovolemic,will replace Hypokalemia - likely from poor PO intake since discharge BOB on CKD - likely vasomotor nephropathy, will hydrate Stage 3 Gluteal ulcer - wound care to see DM2 - A1c 6.6 recently. With hypoglycemia glargine insulin is not likely necessary, especially in light of renal insufficiency COVID 19 recovered - complicated 3 month hospital stay as above HTN - hold meds for hypotension, check AM cortisol, TSH HLD - statin FEN - NPO PPX - heparin FULL CODE Dispo -inpatient Justifications for Admission General Conditions Other justification for admit: Hypotension, Hypoglycemia, Sacral Wound Other Justification LEO GROSS MD May 07, 2021 08:12
[2021-05-07] MEDS: PANTOPRAZOLE 40 MG TABLET.DR. PO SCH (08:57)
[2021-05-07] MEDS ORDERED: FLU VACC QUAD 21-22 (6MOS+) PF 0.5 ML SYRINGE. VAX IM ONE (09:00)
[2021-05-07 11:00] VITALS: BP 104/51
[2021-05-07] MEDS: INSULIN LISPRO 300 UNITS/3 ML VIAL. SQ SCH ×2 (12:00→17:42)
[2021-05-07 15:00] VITALS: BP 108/60
--- NOTE | 2021-05-07 15:23 | PDOC ---
Date of Service: DATE: 05/07/21 TIME: 15:14 Subjective: Subjective: Please see GI notes. Admitted in January 2021 w/ COVID, discharged last Tuesday. Has surgical G tube in placed (by Dr. Mills in [place]). Toward the end of admission, some issues w/ n/v that resolved. GES was normal. To ER yesterday w/ weakness. We are asked to see for possible PEG removal. Apparently after discharge, vomiting recurred at home. Occurs with solids and liquids but not pills. No associated abdominal pain. No heartburn. Stooling without issue. Tolerated some liquids earlier today. Currently working w/ therapy, feeling dizzy. Says she thinks she's "taking steps backwards" re: her COVID recovery. Objective: Vital Signs: Vital Signs Date Time Temp Pulse Resp B/P (MAP) Pulse Ox O2 Delivery O2 Flow Rate FiO2 05/07/21 11:00 98.4 98 20 104/51 (68) 95 98.4 05/07/21 08:57 Room Air 05/07/21 03:00 98.0 Labs: Laboratory Tests Test 05/06/21 19:19 05/06/21 20:01 05/06/21 20:30 05/06/21 20:31 Glucose (Fingerstick) 45 mg/dL 49 mg/dL 65 mg/dL White Blood Count 17.6 x10^3/uL Red Blood Count 3.63 x10^6/uL Hemoglobin 10.8 g/dL Hematocrit 31.2 % Mean Corpuscular Volume 86 fL Mean Corpuscular Hemoglobin 30 pg Mean Corpuscular Hemoglobin Concent 35 g/dL Red Cell Distribution Width 15.5 % Platelet Count 379 x10^3/uL Neutrophils (%) (Auto) 74 % Lymphocytes (%) (Auto) 18 % Monocytes (%) (Auto) 6 % Eosinophils (%) (Auto) 1 % Basophils (%) (Auto) 1 % Neutrophils # (Auto) 13.0 x10^3/uL Lymphocytes # (Auto) 3.2 x10^3/uL Monocytes # (Auto) 1.1 x10^3/uL Eosinophils # (Auto) 0.2 x10^3/uL Basophils # (Auto) 0.1 x10^3/uL Segmented Neutrophils % 74 % Lymphocytes % 19 % Monocytes % 6 % Eosinophils % 1 % Platelet Estimate Adequate Large Platelets Occ Giant Platelets Occ Polychromasia Sodium Level 123 mmol/L Potassium Level 3.4 mmol/L Chloride Level 86 mmol/L Carbon Dioxide Level 30 mmol/L Anion Gap 7 Blood Urea Nitrogen 25 mg/dL Creatinine 2.2 mg/dL Estimated GFR (Cockcroft-Gault) 24.1 BUN/Creatinine Ratio 11 Glucose Level 107 mg/dL Calcium Level 8.5 mg/dL Magnesium Level 1.8 mg/dL Total Bilirubin 0.4 mg/dL Aspartate Amino Transf (AST/SGOT) 22 U/L Alanine Aminotransferase (ALT/SGPT) 23 U/L Alkaline Phosphatase 126 U/L Troponin I Quantitative < 0.017 ng/mL DA-Xcf-V-Type Natriuretic Peptide 107 pg/mL Total Protein 7.7 g/dL Albumin 3.5 g/dL Albumin/Globulin Ratio 0.8 Test 05/06/21 20:58 05/06/21 21:00 05/06/21 23:50 05/07/21 06:30 Glucose (Fingerstick) 205 mg/dL Urine Collection Type Unknown Urine Color Yellow Urine Clarity Cloudy Urine pH 5.5 Urine Specific [place] 1.010 Urine Protein Negative mg/dL Urine Glucose (UA) 100 mg/dL Urine Ketones (Stick) Negative mg/dL Urine Blood Negative Urine Nitrite Negative Urine Bilirubin Negative Urine Urobilinogen Dipstick 0.2 mg/dL Urine Leukocyte Esterase Large Urine RBC 0 /HPF Urine WBC Tntc /HPF Urine Squamous Epithelial Cells Many /LPF Urine Bacteria Many /HPF Urine Hyaline Casts Moderate /HPF Urine Mucus Slight /LPF Lactic Acid Level 1.2 mmol/L White Blood Count 13.9 x10^3/uL Red Blood Count 3.17 x10^6/uL Hemoglobin 9.3 g/dL Hematocrit 27.2 % Mean Corpuscular Volume 86 fL Mean Corpuscular Hemoglobin 29 pg Mean Corpuscular Hemoglobin Concent 34 g/dL Red Cell Distribution Width 15.9 % Platelet Count 327 x10^3/uL Neutrophils (%) (Auto) 73 % Lymphocytes (%) (Auto) 19 % Monocytes (%) (Auto) 6 % Eosinophils (%) (Auto) 1 % Basophils (%) (Auto) 0 % Neutrophils # (Auto) 10.2 x10^3/uL Lymphocytes # (Auto) 2.7 x10^3/uL Monocytes # (Auto) 0.9 x10^3/uL Eosinophils # (Auto) 0.1 x10^3/uL Basophils # (Auto) 0.0 x10^3/uL Sodium Level 131 mmol/L Potassium Level 3.2 mmol/L Chloride Level 96 mmol/L Carbon Dioxide Level 27 mmol/L Anion Gap 8 Blood Urea Nitrogen 23 mg/dL Creatinine 1.6 mg/dL Estimated GFR (Cockcroft-Gault) 34.9 Glucose Level 89 mg/dL Calcium Level 8.1 mg/dL C-Reactive Protein, Quantitative 3.8 mg/L Thyroid Stimulating Hormone (TSH) 0.856 uIU/mL Cortisol AM Sample 26.4 ug/dL Test 05/07/21 07:52 05/07/21 12:07 Glucose (Fingerstick) 125 mg/dL 209 mg/dL Imaging: CXR IMPRESSION: No acute cardiopulmonary process. PE: GEN: NAD - standing next to bed w/ walker and therapist HEENT: Atraumatic, PERRL LUNGS: CTAB HEART: RRR ABD: NABS, S/ND/NT, G tube left upper abdomen EXTREMITY: No edema SKIN: No rashes, no jaundice NEURO/PSYCH: A & O 3 A/P: Vomiting, weakness H/o COVID, surgical G tube in place Leukocytosis, chronic anemia -- Pt seen w/ Dr. Justice - check CT r/o migration of balloon beyond pylorus. Justicifation of Admission Dx: Justifications for Admission: Justification of Admission Dx: N/A JANELLE MONTENEGRO May 07, 2021 15:23
[2021-05-07] MEDS: LINAGLIPTIN 5 MG TABLET PO SCH (16:05)
[2021-05-07] MEDS: PROCHLORPERAZINE 10 MG/2 ML VIAL. IVP PRN (16:05)
--- NOTE | 2021-05-07 16:40 | RAD ---
EXAM: Abdomen and pelvis CT without intravenous contrast. HISTORY: Vomiting. G-tube placement. TECHNIQUE: Computed tomographic images of the abdomen and pelvis were obtained following without intr avenous contrast. Multiplanar reformatting was performed. *One or more of the following individualized dose reduction techniques were utilized for this examina tion: 1. Automated exposure control. 2. Adjustment of the mA and/or kV according to patient size. 3. Use of iterative reconstruction technique. COMPARISON: 06/16/2012. FINDINGS: Evaluation of the lower thorax demonstrates right middle lobe and lingular atelectasis or s carring. There is no infiltrate or pleural effusion. There are bilateral breast implants. The heart i s normal in size. No hepatic lesion is seen. The gallbladder is surgically absent. The pancreas, sple en, adrenal glands and kidneys are unremarkable. There is a gastrostomy tube with the balloon positioned within the gastric lumen. There is slight str anding along the gastrostomy tube tract within the left ventral abdominal wall fat. This may be due t o relative recent placement or granulation tissue. No extraluminal gas is seen. There is no bowel obstruction. There is no abnormal bowel wall thickening. The bladder is nearly empt y. The uterus is absent. There is aortobiiliac atherosclerosis. There is no lymphadenopathy. There is induration of the skin along a ventral abdominal wall pannus. No ventral abdominal wall mass or flui d collection is seen. There is no suspicious osseous finding. IMPRESSION: 1. Gastrostomy tube positioned within the gastric lumen. There is fatty stranding along the gastrosto my tube tract through the ventral abdominal wall subcutaneous fat. This may be due to relative recent postprocedural changes, inflammation or granulation tissue. No abscess is seen. No free air seen. 2. No acute abdominal or pelvic finding. Electronically signed by: Roula Sanches MD (05/07/2021 4:38 PM) [id number]
--- NOTE | 2021-05-07 16:55 | NUR ---
Wound/Ostomy Care Wound Type/Assessment: Wound care consult for left buttock/sacrum PU unstageable and anterior neck old trach site. Pt known to wound care team from previous admission. Left buttock/sacrum PU is unstageable at this time, deep of 2.9cm measure with slough cover and unable to visualize base. Wound care team will come with wound care provider tomorrow for possible bedside debridement and wound vac placement. Anterior neck wound is pink appears to be closing, wound cleansed and covered with xeroform and foam. No other wounds noted on head to toe skin assessment. Treatment Recommendations/Plan: Cleanse wounds with saline or wound wash and pat dry. Anterior neck: cover with xeroform and foam, change every 3 days and prn if saturated Left buttocks/Sacrum: packed with hydrofera blue ready transfer and covered with foam. Wound care will re-eval tomorrow with wound care provider. Education provided: Pt educated on PU healing and prevention, advised to keep off her buttocks as much as possible, pt able to turn with minimal assistance Offloading surface/device: P500 bed (already ordered by direct support staff member), purple wedge, pillows Recommended Referrals/Tests: Dr. Ty for possible bedside debridement of PU Discharge Recommendations for dressings: same as above, wound care will re-eval tomorrow for possible wound vac placement.
[2021-05-07 19:00] VITALS: BP 91/38
[2021-05-07] MEDS: MULTIVITAMIN with MINERAL TABLET. PO SCH (21:24)
[2021-05-07] MEDS: ASCORBIC ACID 1,000 MG TABLET PO SCH (21:24)
[2021-05-07] MEDS: cefTRIAXone IV Push 1 GM VIAL. IVP SCH (21:25)
[2021-05-07 23:00] VITALS: BP 113/44
[2021-05-08 03:00] VITALS: BP 143/68
[2021-05-08] MEDS: ONDANSETRON PF 4 MG/2 ML VIAL. IVP PRN ×2 (04:53→13:50)
[2021-05-08] MEDS: HEPARIN for SUB-Q USE 5,000 UNIT/ML VIAL. SQ SCH ×3 (04:59→21:36)
[2021-05-08 07:00] VITALS: BP 121/87
[2021-05-08 07:32] LABS: BASO # 0.1 x10^3/uL (0.0-0.2); BASO % 1 % (0-3); EOS # 0.1 x10^3/uL (0.0-0.7); EOS % 1 % (0-3); HEMATOCRIT 26.3 % (36.0-47.0); HEMOGLOBIN 8.6 g/dL (12.0-15.5); LYMPH # 2.1 x10^3/uL (1.0-4.8); LYMPH % 19 % (24-48); MEAN CORPUSCULAR HEMOGLOBIN 28 pg (25-35); MEAN CORPUSCULAR HGB CONC 33 g/dL (31-37); MEAN CORPUSCULAR VOLUME 87 fL (79-100); MONO # 0.8 x10^3/uL (0.0-1.1); MONO % 7 % (0-9); NEUT # 8.2 x10^3/uL (1.8-7.7); NEUT % 73 % (31-73); PLATELET COUNT 289 x10^3/uL (140-400); RED BLOOD COUNT 3.03 x10^6/uL (3.50-5.40); RED CELL DISTRIBUTION WIDTH 16.3 % (11.5-14.5); WHITE BLOOD COUNT 11.2 x10^3/uL (4.0-11.0)
[2021-05-08 07:48] LABS: CALCIUM 8.6 mg/dL (8.5-10.1); CREATININE 1.4 mg/dL (0.6-1.0); GFR 40.7; POTASSIUM 3.2 mmol/L (3.5-5.1)
[2021-05-08] MEDS: INSULIN LISPRO 300 UNITS/3 ML VIAL. SQ SCH ×3 (08:55→17:41)
[2021-05-08] MEDS: PANTOPRAZOLE 40 MG TABLET.DR. PO SCH (08:56)
[2021-05-08] MEDS: LINAGLIPTIN 5 MG TABLET PO SCH (08:56)
[2021-05-08] MEDS: MULTIVITAMIN with MINERAL TABLET. PO SCH (08:57)
[2021-05-08] MEDS: ASCORBIC ACID 1,000 MG TABLET PO SCH (08:57)
--- NOTE | 2021-05-08 09:14 | PDOC ---
Date of Service: DATE: 05/08/21 TIME: 09:11 Subjective: Subjective: Some vomiting last night. Ate grapes yesterday and thinks a little bit of those came up this morning. Objective: Vital Signs: Vital Signs Date Time Temp Pulse Resp B/P (MAP) Pulse Ox O2 Delivery O2 Flow Rate FiO2 05/08/21 07:00 98.6 109 22 121/87 (98) 99 98.6 05/07/21 19:30 Room Air Labs: Laboratory Tests Test 05/07/21 12:07 05/07/21 17:03 05/07/21 20:26 05/08/21 06:30 Glucose (Fingerstick) 209 mg/dL 207 mg/dL 251 mg/dL White Blood Count 11.2 x10^3/uL Red Blood Count 3.03 x10^6/uL Hemoglobin 8.6 g/dL Hematocrit 26.3 % Mean Corpuscular Volume 87 fL Mean Corpuscular Hemoglobin 28 pg Mean Corpuscular Hemoglobin Concent 33 g/dL Red Cell Distribution Width 16.3 % Platelet Count 289 x10^3/uL Neutrophils (%) (Auto) 73 % Lymphocytes (%) (Auto) 19 % Monocytes (%) (Auto) 7 % Eosinophils (%) (Auto) 1 % Basophils (%) (Auto) 1 % Neutrophils # (Auto) 8.2 x10^3/uL Lymphocytes # (Auto) 2.1 x10^3/uL Monocytes # (Auto) 0.8 x10^3/uL Eosinophils # (Auto) 0.1 x10^3/uL Basophils # (Auto) 0.1 x10^3/uL Sodium Level 134 mmol/L Potassium Level 3.2 mmol/L Chloride Level 98 mmol/L Carbon Dioxide Level 26 mmol/L Anion Gap 10 Blood Urea Nitrogen 12 mg/dL Creatinine 1.4 mg/dL Estimated GFR (Cockcroft-Gault) 40.7 Glucose Level 196 mg/dL Calcium Level 8.6 mg/dL Test 05/08/21 07:38 Glucose (Fingerstick) 228 mg/dL Imaging: CT A/P 05/07 IMPRESSION: 1. Gastrostomy tube positioned within the gastric lumen. There is fatty stranding along the gastrostomy tube tract through the ventral abdominal wall subcutaneous fat. This may be due to relative recent postprocedural changes, inflammation or granulation tissue. No abscess is seen. No free air seen. 2. No acute abdominal or pelvic finding. PE: GEN: NAD, up in chair LUNGS: CTAB HEART: RRR ABD: G tube in place, soft, non-tender NEURO/PSYCH: A & O 3 A/P: Vomiting H/o COVID, surgical G tube in place -- D/w Dr. Justice - ?balloon position contributing to vomiting? - will ask surger y to consider G tube removal. Justicifation of Admission Dx: Justifications for Admission: Justification of Admission Dx: N/A JANELLE MONTENEGRO May 08, 2021 09:14
--- NOTE | 2021-05-08 10:04 | PDOC ---
RACHEL CADE PIZZA COOK 05/08/21 1004: SURGICAL PROGRESS NOTE DATE: 05/08/21 TIME: 10:02 Subjective Pt known from lap g tube placement 03/27 for nutrition needs, recovering from covid now resolved, eating, having emesis, has been evaluated by GI--concerned g tube contributing to emesis--surgery consult to remove, not using at this time Vital Signs Vital Signs Date Time Temp Pulse Resp B/P (MAP) Pulse Ox O2 Delivery O2 Flow Rate FiO2 05/08/21 07:00 98.6 109 22 121/87 (98) 99 98.6 05/07/21 19:30 Room Air I&O Intake and Output 05/08/21 07:00 Intake Total 1710 ml Balance 1710 ml Intake Oral 1710 ml # Voids 5 General: Alert, Oriented X3, Cooperative Abdomen: Soft, Other (g tube in place, some drainage around site ) Labs Laboratory Tests Test 05/06/21 19:19 05/06/21 20:01 05/06/21 20:30 05/06/21 20:31 Glucose (Fingerstick) 45 mg/dL (70-99) 49 mg/dL (70-99) 65 mg/dL (70-99) White Blood Count 17.6 x10^3/uL (4.0-11.0) Red Blood Count 3.63 x10^6/uL (3.50-5.40) Hemoglobin 10.8 g/dL (12.0-15.5) Hematocrit 31.2 % (36.0-47.0) Mean Corpuscular Volume 86 fL (79-100) Mean Corpuscular Hemoglobin 30 pg (25-35) Mean Corpuscular Hemoglobin Concent 35 g/dL (31-37) Red Cell Distribution Width 15.5 % (11.5-14.5) Platelet Count 379 x10^3/uL (140-400) Neutrophils (%) (Auto) 74 % (31-73) Lymphocytes (%) (Auto) 18 % (24-48) Monocytes (%) (Auto) 6 % (0-9) Eosinophils (%) (Auto) 1 % (0-3) Basophils (%) (Auto) 1 % (0-3) Neutrophils # (Auto) 13.0 x10^3/uL (1.8-7.7) Lymphocytes # (Auto) 3.2 x10^3/uL (1.0-4.8) Monocytes # (Auto) 1.1 x10^3/uL (0.0-1.1) Eosinophils # (Auto) 0.2 x10^3/uL (0.0-0.7) Basophils # (Auto) 0.1 x10^3/uL (0.0-0.2) Segmented Neutrophils % 74 % (35-66) Lymphocytes % 19 % (24-48) Monocytes % 6 % (0-10) Eosinophils % 1 % (0-5) Platelet Estimate Adequate (ADEQUATE) Large Platelets Occ Giant Platelets Occ Polychromasia Sodium Level 123 mmol/L (136-145) Potassium Level 3.4 mmol/L (3.5-5.1) Chloride Level 86 mmol/L (98-107) Carbon Dioxide Level 30 mmol/L (21-32) Anion Gap 7 (6-14) Blood Urea Nitrogen 25 mg/dL (7-20) Creatinine 2.2 mg/dL (0.6-1.0) Estimated GFR (Cockcroft-Gault) 24.1 BUN/Creatinine Ratio 11 (6-20) Glucose Level 107 mg/dL (70-99) Calcium Level 8.5 mg/dL (8.5-10.1) Magnesium Level 1.8 mg/dL (1.8-2.4) Total Bilirubin 0.4 mg/dL (0.2-1.0) Aspartate Amino Transf (AST/SGOT) 22 U/L (15-37) Alanine Aminotransferase (ALT/SGPT) 23 U/L (14-59) Alkaline Phosphatase 126 U/L (46-116) Troponin I Quantitative < 0.017 ng/mL (0.000-0.055) KL-Vbx-G-Type Natriuretic Peptide 107 pg/mL (0-124) Total Protein 7.7 g/dL (6.4-8.2) Albumin 3.5 g/dL (3.4-5.0) Albumin/Globulin Ratio 0.8 (1.0-1.7) Test 05/06/21 20:58 05/06/21 21:00 05/06/21 23:50 05/07/21 06:30 Glucose (Fingerstick) 205 mg/dL (70-99) Urine Collection Type Unknown Urine Color Yellow Urine Clarity Cloudy Urine pH 5.5 (<5.0-8.0) Urine Specific Superior 1.010 (1.000-1.030) Urine Protein Negative mg/dL (NEG-TRACE) Urine Glucose (UA) 100 mg/dL (NEG) Urine Ketones (Stick) Negative mg/dL (NEG) Urine Blood Negative (NEG) Urine Nitrite Negative (NEG) Urine Bilirubin Negative (NEG) Urine Urobilinogen Dipstick 0.2 mg/dL (0.2 mg/dL) Urine Leukocyte Esterase Large (NEG) Urine RBC 0 /HPF (0-2) Urine WBC Tntc /HPF (0-4) Urine Squamous Epithelial Cells Many /LPF Urine Bacteria Many /HPF (0-FEW) Urine Hyaline Casts Moderate /HPF Urine Mucus Slight /LPF Lactic Acid Level 1.2 mmol/L (0.4-2.0) White Blood Count 13.9 x10^3/uL (4.0-11.0) Red Blood Count 3.17 x10^6/uL (3.50-5.40) Hemoglobin 9.3 g/dL (12.0-15.5) Hematocrit 27.2 % (36.0-47.0) Mean Corpuscular Volume 86 fL (79-100) Mean Corpuscular Hemoglobin 29 pg (25-35) Mean Corpuscular Hemoglobin Concent 34 g/dL (31-37) Red Cell Distribution Width 15.9 % (11.5-14.5) Platelet Count 327 x10^3/uL (140-400) Neutrophils (%) (Auto) 73 % (31-73) Lymphocytes (%) (Auto) 19 % (24-48) Monocytes (%) (Auto) 6 % (0-9) Eosinophils (%) (Auto) 1 % (0-3) Basophils (%) (Auto) 0 % (0-3) Neutrophils # (Auto) 10.2 x10^3/uL (1.8-7.7) Lymphocytes # (Auto) 2.7 x10^3/uL (1.0-4.8) Monocytes # (Auto) 0.9 x10^3/uL (0.0-1.1) Eosinophils # (Auto) 0.1 x10^3/uL (0.0-0.7) Basophils # (Auto) 0.0 x10^3/uL (0.0-0.2) Sodium Level 131 mmol/L (136-145) Potassium Level 3.2 mmol/L (3.5-5.1) Chloride Level 96 mmol/L (98-107) Carbon Dioxide Level 27 mmol/L (21-32) Anion Gap 8 (6-14) Blood Urea Nitrogen 23 mg/dL (7-20) Creatinine 1.6 mg/dL (0.6-1.0) Estimated GFR (Cockcroft-Gault) 34.9 Glucose Level 89 mg/dL (70-99) Calcium Level 8.1 mg/dL (8.5-10.1) C-Reactive Protein, Quantitative 3.8 mg/L (0-3.3) Thyroid Stimulating Hormone (TSH) 0.856 uIU/mL (0.358-3.74) Cortisol AM Sample 26.4 ug/dL (4.3-22.4) Test 05/07/21 07:52 05/07/21 12:07 05/07/21 17:03 05/07/21 20:26 Glucose (Fingerstick) 125 mg/dL (70-99) 209 mg/dL (70-99) 207 mg/dL (70-99) 251 mg/dL (70-99) Test 05/08/21 06:30 05/08/21 07:38 White Blood Count 11.2 x10^3/uL (4.0-11.0) Red Blood Count 3.03 x10^6/uL (3.50-5.40) Hemoglobin 8.6 g/dL (12.0-15.5) Hematocrit 26.3 % (36.0-47.0) Mean Corpuscular Volume 87 fL (79-100) Mean Corpuscular Hemoglobin 28 pg (25-35) Mean Corpuscular Hemoglobin Concent 33 g/dL (31-37) Red Cell Distribution Width 16.3 % (11.5-14.5) Platelet Count 289 x10^3/uL (140-400) Neutrophils (%) (Auto) 73 % (31-73) Lymphocytes (%) (Auto) 19 % (24-48) Monocytes (%) (Auto) 7 % (0-9) Eosinophils (%) (Auto) 1 % (0-3) Basophils (%) (Auto) 1 % (0-3) Neutrophils # (Auto) 8.2 x10^3/uL (1.8-7.7) Lymphocytes # (Auto) 2.1 x10^3/uL (1.0-4.8) Monocytes # (Auto) 0.8 x10^3/uL (0.0-1.1) Eosinophils # (Auto) 0.1 x10^3/uL (0.0-0.7) Basophils # (Auto) 0.1 x10^3/uL (0.0-0.2) Sodium Level 134 mmol/L (136-145) Potassium Level 3.2 mmol/L (3.5-5.1) Chloride Level 98 mmol/L (98-107) Carbon Dioxide Level 26 mmol/L (21-32) Anion Gap 10 (6-14) Blood Urea Nitrogen 12 mg/dL (7-20) Creatinine 1.4 mg/dL (0.6-1.0) Estimated GFR (Cockcroft-Gault) 40.7 Glucose Level 196 mg/dL (70-99) Calcium Level 8.6 mg/dL (8.5-10.1) Glucose (Fingerstick) 228 mg/dL (70-99) Laboratory Tests Test 05/07/21 12:07 05/07/21 17:03 05/07/21 20:26 05/08/21 06:30 Glucose (Fingerstick) 209 mg/dL (70-99) 207 mg/dL (70-99) 251 mg/dL (70-99) White Blood Count 11.2 x10^3/uL (4.0-11.0) Red Blood Count 3.03 x10^6/uL (3.50-5.40) Hemoglobin 8.6 g/dL (12.0-15.5) Hematocrit 26.3 % (36.0-47.0) Mean Corpuscular Volume 87 fL (79-100) Mean Corpuscular Hemoglobin 28 pg (25-35) Mean Corpuscular Hemoglobin Concent 33 g/dL (31-37) Red Cell Distribution Width 16.3 % (11.5-14.5) Platelet Count 289 x10^3/uL (140-400) Neutrophils (%) (Auto) 73 % (31-73) Lymphocytes (%) (Auto) 19 % (24-48) Monocytes (%) (Auto) 7 % (0-9) Eosinophils (%) (Auto) 1 % (0-3) Basophils (%) (Auto) 1 % (0-3) Neutrophils # (Auto) 8.2 x10^3/uL (1.8-7.7) Lymphocytes # (Auto) 2.1 x10^3/uL (1.0-4.8) Monocytes # (Auto) 0.8 x10^3/uL (0.0-1.1) Eosinophils # (Auto) 0.1 x10^3/uL (0.0-0.7) Basophils # (Auto) 0.1 x10^3/uL (0.0-0.2) Sodium Level 134 mmol/L (136-145) Potassium Level 3.2 mmol/L (3.5-5.1) Chloride Level 98 mmol/L (98-107) Carbon Dioxide Level 26 mmol/L (21-32) Anion Gap 10 (6-14) Blood Urea Nitrogen 12 mg/dL (7-20) Creatinine 1.4 mg/dL (0.6-1.0) Estimated GFR (Cockcroft-Gault) 40.7 Glucose Level 196 mg/dL (70-99) Calcium Level 8.6 mg/dL (8.5-10.1) Test 05/08/21 07:38 Glucose (Fingerstick) 228 mg/dL (70-99) Problem List Problems Medical Problems: (1) Hypoglycemia Status: Acute (2) Hypotension Status: Acute (3) UTI (urinary tract infection) Status: Acute (4) Wound infection Status: Acute Assessment/Plan g tube removed without difficulty, will sign off, please call with questions Justicifation of Admission Dx: Justifications for Admission: Justification of Admission Dx: N/A DANIEL ACHARYA MD 05/08/21 1706: SURGICAL PROGRESS NOTE Assessment/Plan Pt seen and examined. Agree with Karo Cade's note Pt without new c/o abd soft, G-tube out d/w wound care, will tentatively plan debridement on 05/11 Thanks for consult! RACHEL CADE APRN May 08, 2021 10:04 DANIEL ACHARYA MD May 08, 2021 17:06
[2021-05-08 11:00] VITALS: BP 122/71
--- NOTE | 2021-05-08 11:13 | PDOC ---
[facility] PROGRESS NOTE Date of Service DOS: DATE: 05/08/21 TIME: 11:07 Chief Complaint Chief Complaint A/P: Hypoglycemia- taking glargine insulin with insufficient PO intake, will check cortisol levels as well given her prolonged steroid course N/V, abdominal pain - consider PEG removal. CT abdomen. GI consulted Weakness - with hypotension, will check AM cortisol Hyponatremia - hypovolemic,will replace Hypokalemia - likely from poor PO intake since discharge BOB on CKD - likely vasomotor nephropathy, will hydrate Stage 3 Gluteal ulcer - wound care to see DM2 - A1c 6.6 recently. With hypoglycemia glargine insulin is not likely necessary, especially in light of renal insufficiency COVID 19 recovered - complicated 3 month hospital stay as above HTN - hold meds for hypotension, checked AM cortisol, TSH HLD - statin FEN - ADA diet PPX - heparin FULL CODE Dispo -inpatient History of Present Illness History of Present Illness Ms Borges is a 46 year old female w/ PMHx DM2, HTN, HLD who presents to ED c/o worsening weakness, lightheadedness and diaphoresis with near syncope and hypoglycemia at her PCPs office. She had a prolonged stay due to COVID-19 from February 07 until May 01 where she required temporary hemodialysis tracheostomy and subsequent reversal PEG placement 03/27/2021. She did develop a bedsore during this time as well and since being home over the last 6 days has felt like she has "taken a step back". She would repeat PCPs office and despite taking minimal insulin her blood sugar was 60 in the office, given glucose there and instructed to go to ED. She was home with home health but has had difficulty getting up because of her lighthe adedness. In emergency room her blood sugar was 45. She remains alert and oriented. She states she is feeling dizzy, foggy headed and very weak. Chest radiograph with no acute abnormalities, WBC 17.6, Hb 10.6, platelets 379, NA 123, K3.4, BUN 25, CR 2.2, albumin 3.5, alk phos 126 otherwise LFTs within normal laboratory limits urinalysis with large leuk esterase Admitted for further care. Glucose improved creatinine improved to 1.4. General surgery consulted removed PEG tube bedside local wound care performed. Brijesh home wound care and outpatient wound care as well as ambulation with walker at home She wants to renew her home health nurse advised to cut back on insulin to Lantus 15 units nightly sliding scale during the day of Tradje. Continue to stay hydrated with water. Addendum: After discussion with wound care there is wound undermining it would be more appropriate to stay inpatient general surgery consult for surgical debridement under anesthesia and wound VAC placement. We will continue IV antibiotics for now Vitals/I&O Vitals/I&O: Vital Signs Date Time Temp Pulse Resp B/P (MAP) Pulse Ox O2 Delivery O2 Flow Rate FiO2 05/08/21 07:00 98.6 109 22 121/87 (98) 99 98.6 05/07/21 19:30 Room Air I & O 05/07/21 05/07/21 05/08/21 15:00 23:00 07:00 Intake Total 460 ml 1250 ml Balance 460 ml 1250 ml Physical Exam General: Alert, Oriented X3, Cooperative Lungs: Crackles Abdomen: Soft, Other (g tube in place, some drainage around site ) Skin: Other (Stage 3 4x10x0.3 ulcer) Labs Labs: Laboratory Tests Test 05/07/21 12:07 05/07/21 17:03 05/07/21 20:26 05/08/21 06:30 Glucose (Fingerstick) 209 mg/dL (70-99) 207 mg/dL (70-99) 251 mg/dL (70-99) White Blood Count 11.2 x10^3/uL (4.0-11.0) Red Blood Count 3.03 x10^6/uL (3.50-5.40) Hemoglobin 8.6 g/dL (12.0-15.5) Hematocrit 26.3 % (36.0-47.0) Mean Corpuscular Volume 87 fL (79-100) Mean Corpuscular Hemoglobin 28 pg (25-35) Mean Corpuscular Hemoglobin Concent 33 g/dL (31-37) Red Cell Distribution Width 16.3 % (11.5-14.5) Platelet Count 289 x10^3/uL (140-400) Neutrophils (%) (Auto) 73 % (31-73) Lymphocytes (%) (Auto) 19 % (24-48) Monocytes (%) (Auto) 7 % (0-9) Eosinophils (%) (Auto) 1 % (0-3) Basophils (%) (Auto) 1 % (0-3) Neutrophils # (Auto) 8.2 x10^3/uL (1.8-7.7) Lymphocytes # (Auto) 2.1 x10^3/uL (1.0-4.8) Monocytes # (Auto) 0.8 x10^3/uL (0.0-1.1) Eosinophils # (Auto) 0.1 x10^3/uL (0.0-0.7) Basophils # (Auto) 0.1 x10^3/uL (0.0-0.2) Sodium Level 134 mmol/L (136-145) Potassium Level 3.2 mmol/L (3.5-5.1) Chloride Level 98 mmol/L (98-107) Carbon Dioxide Level 26 mmol/L (21-32) Anion Gap 10 (6-14) Blood Urea Nitrogen 12 mg/dL (7-20) Creatinine 1.4 mg/dL (0.6-1.0) Estimated GFR (Cockcroft-Gault) 40.7 Glucose Level 196 mg/dL (70-99) Calcium Level 8.6 mg/dL (8.5-10.1) Test 05/08/21 07:38 Glucose (Fingerstick) 228 mg/dL (70-99) Assessment and Plan Assessmemt and Plan Problems Medical Problems: (1) Hypoglycemia Status: Acute (2) Hypotension Status: Acute (3) UTI (urinary tract infection) Status: Acute (4) Wound infection Status: Acute Comment Review of Relevant I have reviewed the following items mazin (where applicable) has been applied. Medications: Current Medications Medications (Trade) Dose Ordered Sig/Pepe Route PRN Reason Start Time Stop Time Status Last Admin Dose Admin Insulin Human Lispro (HumaLOG) 0-5 UNITS TIDWMEALS SQ 05/07/21 12:00 05/08/21 07:47 DC 05/07/21 17:42 Ceftriaxone Sodium (Rocephin) 1 gm Q24H IVP 05/07/21 21:00 05/07/21 21:25 Linagliptin (Tradjenta) 5 mg DAILY PO 05/07/21 16:30 05/08/21 08:56 Multivitamins (Thera M Plus) 1 tab DAILY PO 05/07/21 19:30 05/08/21 08:57 Ascorbic Acid (Vitamin C) 1,000 mg DAILY PO 05/07/21 19:30 05/08/21 08:57 Insulin Human Lispro (HumaLOG) 0-9 UNITS TIDWMEALS SQ 05/08/21 08:00 05/08/21 08:55 Justifications for Admission General Conditions Other justification for admit: Hypotension, Hypoglycemia, Sacral Wound Other Justification LEO GROSS MD May 08, 2021 11:13
[2021-05-08] MEDS ORDERED: POTASSIUM CHLORIDE 20 MEQ TABLET.ER. PO ONE (11:15)
[2021-05-08] MEDS ORDERED: INSU100I17 SQ (12:49)
[2021-05-08] MEDS ORDERED: INSU100V8 SQ (12:49)
[2021-05-08] MEDS ORDERED: LINA5TAB PO (12:49)
[2021-05-08] MEDS ORDERED: HYDR10TA2 PO (12:52)
[2021-05-08] MEDS ORDERED: CEFP200T PO (13:03)
--- NOTE | 2021-05-08 13:04 | SNU/HH DC ---
DISCHARGE WITH HOME HEALTH DISCHARGE INFORMATION: Discharge Date: May 08, 2021 Final Diagnosis: Problems Medical Problems: (1) Hypoglycemia Status: Acute (2) Hypotension Status: Acute (3) UTI (urinary tract infection) Status: Acute (4) Wound infection Status: Acute Condition on Discharge: Stable CODE STATUS: Code Status: Full HOME HEALTH: Face to Face: I certify this patient is under my care and that I, or a nurse practitioner or physician's dietetic assistant working with me, had a face to face encounter that meets the physician face to face encounter requirements with this patient on 05/08/2021. Nursing Home For: Diabetic Care, Medication Management, Ostomy Care, Pain Management RN For Eval/Treatment: Yes Physical Therapy For: Evalulation/Treatment Occupational Therapy For: Evaluation/Treatment Pt Meets Homebound Status: Extreme weakness w/ amb. POST DISCHARGE ORDERS: Activity Instructions for Disc: No restrictions, Activity as tolerated Weight Bearing Status after Di: No restrictions, As tolerated DIET AFTER DISCHARGE: ADA Wound/Incision Care: Ice to area for comfort, May get incision wet CHECKS AFTER DISCHARGE: Checks after discharge: Check blood press - daily, Check blood sugar, ac/hs, Check your Temp as needed FOLLOW-UP: Additional Instructions: Cleanse wounds with saline or wound wash and pat dry. Saline rinse! Anterior neck: cover with xeroform and foam, change every 3 days and prn if saturated Left buttocks/Sacrum: packed with hydrofera blue ready transfer and covered with foam. CERTIFICATION STATEMENT: Certification Statement: Certification Statement: Based on the above finding, I certify that this patient is confined to the home and needs intermittent detention care, physical therapy and/or speech therapy, or continues to need occupational therapy.~ This patient is under my care, and I have initiated the establishment of the plan of care.~ This patient will be followed by myself or a community physician who will periodically review the plan of care. Home Meds Active Scripts Zolpidem Tartrate (AMBIEN) 5 Mg Tablet, 5 MG PO PRN QHS PRN for INSOMNIA, MAY REPEAT IN 1HR for 30 Days, #6 TAB Prov:LEO GROSS MD 05/08/21 Cefpodoxime Proxetil (CEFPODOXIME PROXETIL) 200 Mg Tablet, 1 TAB PO BID for UTI for 3 Days, #6 TAB Prov:LEO GROSS MD 05/08/21 Hydroxyzine Hcl (HYDROXYZINE HCL) 10 Mg Tablet, 10 MG PO PRN TID PRN for ANXIETY for 30 Days, #30 TAB 5 Refills Prov:LEO GROSS MD 05/08/21 Linagliptin (TRADJENTA) 5 Mg Tablet, 5 MG PO DAILY for DM2 for 30 Days, #30 TAB 5 Refills Prov:LEO GROSS MD 05/08/21 Insulin Glargine,Hum.rec.anlog (LANTUS) 100 Unit/1 Ml Vial, 15 UNIT SQ QHS for . for 30 Days, #1 EACH Prov:LEO GROSS MD 05/08/21 Insulin Aspart (NOVOLOG FLEXPEN) 100 Unit/1 Ml Insuln.pen, 0-9 UNITS SQ TIDACHC for Diabetes for 30 Days, #30 SYR 0 Refills Prov:LEO GROSS MD 05/08/21 Ondansetron Hcl (ZOFRAN) 4 Mg Tablet, 1 TAB PO Q6HRS for nausea, #20 TAB Prov:MAKENNA BLACKMONL K III DO 05/01/21 Pantoprazole Sodium (PANTOPRAZOLE SODIUM ) 40 Mg Tablet.dr, 40 MG PO DAILYAC for . for 30 Days, #30 TAB.SR Prov:NEYMARNIAL K III DO 05/01/21 Fluoxetine Hcl (FLUOXETINE HCL) 20 Mg/5 Ml Solution, 20 MG PEG DAILY for . for 30 Days, #30 MISC Prov:NEYMARNIAL K III DO 05/01/21 Albuterol Sulfate (Proair Hfa) 8.5 Gm Hfa.aer.ad, 2.5 MG NEB PRN Q4HRS PRN for SHORTNESS OF BREATH for 14 Days, #1 INHALER Prov:MAKENNA BLACKMONL K III DO 05/01/21 Reported Medications Lisinopril (LISINOPRIL) 5 Mg Tablet, 1 TAB PO DAILY for Prevention, #30 TAB 5 Re fills 02/07/21 Atorvastatin Calcium (ATORVASTATIN CALCIUM) 40 Mg Tablet, 40 MG PO HS for FOR CHOLESTEROL, #30 TAB 0 Refills 04/09/15 Discontinued Reported Medications Insulin Glargine,Hum.rec.anlog (LANTUS SOLOSTAR) 100 Unit/1 Ml Insuln.pen, 5 UNIT SQ QHS for diabetes, #15 ML 3 Refills 04/09/15 Discontinued Scripts Amlodipine Besylate (AMLODIPINE BESYLATE) 10 Mg Tablet, 10 MG PO DAILY for . for 30 Days, #30 TAB Prov:DIANELYS BLACKMON III DO 05/01/21 LEO GROSS MD May 08, 2021 13:03
[2021-05-08] MEDS ORDERED: ZOLP5TAB PO (13:23)
--- NOTE | 2021-05-08 13:39 | PDOC3 ---
Discharge Summary Visit Information Date of Admission: May 06, 2021 Date of Discharge: May 08, 2021 Admitting Diagnosis: Acute encephalopathy Final Diagnosis Problems Medical Problems: (1) Hypoglycemia Status: Acute (2) Hypotension Status: Acute (3) UTI (urinary tract infection) Status: Acute (4) Wound infection Status: Acute Brief Hospital Course Allergies Allergies Coded Allergies Type Severity Reaction Last Updated Verified venom-honey bee Allergy Severe Shortness of Air 03/23/21 Yes oxycodone Allergy Intermediate Itching 03/23/21 No shellfish derived Allergy Intermediate Itching 03/23/21 No tree nut Allergy Unknown 05/06/21 Yes Vital Signs Vital Signs Date Time Temp Pulse Resp B/P (MAP) Pulse Ox O2 Delivery O2 Flow Rate FiO2 05/08/21 11:00 98.0 114 18 122/71 (88) 99 98.0 05/08/21 08:00 Room Air 05/07/21 03:00 98.0 Lab Results Laboratory Tests Test 05/06/21 19:19 05/06/21 20:01 05/06/21 20:30 05/06/21 20:31 Glucose (Fingerstick) 45 mg/dL (70-99) 49 mg/dL (70-99) 65 mg/dL (70-99) White Blood Count 17.6 x10^3/uL (4.0-11.0) Red Blood Count 3.63 x10^6/uL (3.50-5.40) Hemoglobin 10.8 g/dL (12.0-15.5) Hematocrit 31.2 % (36.0-47.0) Mean Corpuscular Volume 86 fL (79-100) Mean Corpuscular Hemoglobin 30 pg (25-35) Mean Corpuscular Hemoglobin Concent 35 g/dL (31-37) Red Cell Distribution Width 15.5 % (11.5-14.5) Platelet Count 379 x10^3/uL (140-400) Neutrophils (%) (Auto) 74 % (31-73) Lymphocytes (%) (Auto) 18 % (24-48) Monocytes (%) (Auto) 6 % (0-9) Eosinophils (%) (Auto) 1 % (0-3) Basophils (%) (Auto) 1 % (0-3) Neutrophils # (Auto) 13.0 x10^3/uL (1.8-7.7) Lymphocytes # (Auto) 3.2 x10^3/uL (1.0-4.8) Monocytes # (Auto) 1.1 x10^3/uL (0.0-1.1) Eosinophils # (Auto) 0.2 x10^3/uL (0.0-0.7) Basophils # (Auto) 0.1 x10^3/uL (0.0-0.2) Segmented Neutrophils % 74 % (35-66) Lymphocytes % 19 % (24-48) Monocytes % 6 % (0-10) Eosinophils % 1 % (0-5) Platelet Estimate Adequate (ADEQUATE) Large Platelets Occ Giant Platelets Occ Polychromasia Sodium Level 123 mmol/L (136-145) Potassium Level 3.4 mmol/L (3.5-5.1) Chloride Level 86 mmol/L (98-107) Carbon Dioxide Level 30 mmol/L (21-32) Anion Gap 7 (6-14) Blood Urea Nitrogen 25 mg/dL (7-20) Creatinine 2.2 mg/dL (0.6-1.0) Estimated GFR (Cockcroft-Gault) 24.1 BUN/Creatinine Ratio 11 (6-20) Glucose Level 107 mg/dL (70-99) Calcium Level 8.5 mg/dL (8.5-10.1) Magnesium Level 1.8 mg/dL (1.8-2.4) Total Bilirubin 0.4 mg/dL (0.2-1.0) Aspartate Amino Transf (AST/SGOT) 22 U/L (15-37) Alanine Aminotransferase (ALT/SGPT) 23 U/L (14-59) Alkaline Phosphatase 126 U/L (46-116) Troponin I Quantitative < 0.017 ng/mL (0.000-0.055) ZX-Qxp-V-Type Natriuretic Peptide 107 pg/mL (0-124) Total Protein 7.7 g/dL (6.4-8.2) Albumin 3.5 g/dL (3.4-5.0) Albumin/Globulin Ratio 0.8 (1.0-1.7) Test 05/06/21 20:58 05/06/21 21:00 05/06/21 23:50 05/07/21 06:30 Glucose (Fingerstick) 205 mg/dL (70-99) Urine Collection Type Unknown Urine Color Yellow Urine Clarity Cloudy Urine pH 5.5 (<5.0-8.0) Urine Specific [place] 1.010 (1.000-1.030) Urine Protein Negative mg/dL (NEG-TRACE) Urine Glucose (UA) 100 mg/dL (NEG) Urine Ketones (Stick) Negative mg/dL (NEG) Urine Blood Negative (NEG) Urine Nitrite Negative (NEG) Urine Bilirubin Negative (NEG) Urine Urobilinogen Dipstick 0.2 mg/dL (0.2 mg/dL) Urine Leukocyte Esterase Large (NEG) Urine RBC 0 /HPF (0-2) Urine WBC Tntc /HPF (0-4) Urine Squamous Epithelial Cells Many /LPF Urine Bacteria Many /HPF (0-FEW) Urine Hyaline Casts Moderate /HPF Urine Mucus Slight /LPF Lactic Acid Level 1.2 mmol/L (0.4-2.0) White Blood Count 13.9 x10^3/uL (4.0-11.0) Red Blood Count 3.17 x10^6/uL (3.50-5.40) Hemoglobin 9.3 g/dL (12.0-15.5) Hematocrit 27.2 % (36.0-47.0) Mean Corpuscular Volume 86 fL (79-100) Mean Corpuscular Hemoglobin 29 pg (25-35) Mean Corpuscular Hemoglobin Concent 34 g/dL (31-37) Red Cell Distribution Width 15.9 % (11.5-14.5) Platelet Count 327 x10^3/uL (140-400) Neutrophils (%) (Auto) 73 % (31-73) Lymphocytes (%) (Auto) 19 % (24-48) Monocytes (%) (Auto) 6 % (0-9) Eosinophils (%) (Auto) 1 % (0-3) Basophils (%) (Auto) 0 % (0-3) Neutrophils # (Auto) 10.2 x10^3/uL (1.8-7.7) Lymphocytes # (Auto) 2.7 x10^3/uL (1.0-4.8) Monocytes # (Auto) 0.9 x10^3/uL (0.0-1.1) Eosinophils # (Auto) 0.1 x10^3/uL (0.0-0.7) Basophils # (Auto) 0.0 x10^3/uL (0.0-0.2) Sodium Level 131 mmol/L (136-145) Potassium Level 3.2 mmol/L (3.5-5.1) Chloride Level 96 mmol/L (98-107) Carbon Dioxide Level 27 mmol/L (21-32) Anion Gap 8 (6-14) Blood Urea Nitrogen 23 mg/dL (7-20) Creatinine 1.6 mg/dL (0.6-1.0) Estimated GFR (Cockcroft-Gault) 34.9 Glucose Level 89 mg/dL (70-99) Calcium Level 8.1 mg/dL (8.5-10.1) C-Reactive Protein, Quantitative 3.8 mg/L (0-3.3) Thyroid Stimulating Hormone (TSH) 0.856 uIU/mL (0.358-3.74) Cortisol AM Sample 26.4 ug/dL (4.3-22.4) Test 05/07/21 07:52 05/07/21 12:07 05/07/21 17:03 05/07/21 20:26 Glucose (Fingerstick) 125 mg/dL (70-99) 209 mg/dL (70-99) 207 mg/dL (70-99) 251 mg/dL (70-99) Test 05/08/21 06:30 05/08/21 07:38 05/08/21 12:12 White Blood Count 11.2 x10^3/uL (4.0-11.0) Red Blood Count 3.03 x10^6/uL (3.50-5.40) Hemoglobin 8.6 g/dL (12.0-15.5) Hematocrit 26.3 % (36.0-47.0) Mean Corpuscular Volume 87 fL (79-100) Mean Corpuscular Hemoglobin 28 pg (25-35) Mean Corpuscular Hemoglobin Concent 33 g/dL (31-37) Red Cell Distribution Width 16.3 % (11.5-14.5) Platelet Count 289 x10^3/uL (140-400) Neutrophils (%) (Auto) 73 % (31-73) Lymphocytes (%) (Auto) 19 % (24-48) Monocytes (%) (Auto) 7 % (0-9) Eosinophils (%) (Auto) 1 % (0-3) Basophils (%) (Auto) 1 % (0-3) Neutrophils # (Auto) 8.2 x10^3/uL (1.8-7.7) Lymphocytes # (Auto) 2.1 x10^3/uL (1.0-4.8) Monocytes # (Auto) 0.8 x10^3/uL (0.0-1.1) Eosinophils # (Auto) 0.1 x10^3/uL (0.0-0.7) Basophils # (Auto) 0.1 x10^3/uL (0.0-0.2) Sodium Level 134 mmol/L (136-145) Potassium Level 3.2 mmol/L (3.5-5.1) Chloride Level 98 mmol/L (98-107) Carbon Dioxide Level 26 mmol/L (21-32) Anion Gap 10 (6-14) Blood Urea Nitrogen 12 mg/dL (7-20) Creatinine 1.4 mg/dL (0.6-1.0) Estimated GFR (Cockcroft-Gault) 40.7 Glucose Level 196 mg/dL (70-99) Calcium Level 8.6 mg/dL (8.5-10.1) Glucose (Fingerstick) 228 mg/dL (70-99) 347 mg/dL (70-99) Laboratory Tests Test 05/07/21 17:03 05/07/21 20:26 05/08/21 06:30 05/08/21 07:38 Glucose (Fingerstick) 207 mg/dL (70-99) 251 mg/dL (70-99) 228 mg/dL (70-99) White Blood Count 11.2 x10^3/uL (4.0-11.0) Red Blood Count 3.03 x10^6/uL (3.50-5.40) Hemoglobin 8.6 g/dL (12.0-15.5) Hematocrit 26.3 % (36.0-47.0) Mean Corpuscular Volume 87 fL (79-100) Mean Corpuscular Hemoglobin 28 pg (25-35) Mean Corpuscular Hemoglobin Concent 33 g/dL (31-37) Red Cell Distribution Width 16.3 % (11.5-14.5) Platelet Count 289 x10^3/uL (140-400) Neutrophils (%) (Auto) 73 % (31-73) Lymphocytes (%) (Auto) 19 % (24-48) Monocytes (%) (Auto) 7 % (0-9) Eosinophils (%) (Auto) 1 % (0-3) Basophils (%) (Auto) 1 % (0-3) Neutrophils # (Auto) 8.2 x10^3/uL (1.8-7.7) Lymphocytes # (Auto) 2.1 x10^3/uL (1.0-4.8) Monocytes # (Auto) 0.8 x10^3/uL (0.0-1.1) Eosinophils # (Auto) 0.1 x10^3/uL (0.0-0.7) Basophils # (Auto) 0.1 x10^3/uL (0.0-0.2) Sodium Level 134 mmol/L (136-145) Potassium Level 3.2 mmol/L (3.5-5.1) Chloride Level 98 mmol/L (98-107) Carbon Dioxide Level 26 mmol/L (21-32) Anion Gap 10 (6-14) Blood Urea Nitrogen 12 mg/dL (7-20) Creatinine 1.4 mg/dL (0.6-1.0) Estimated GFR (Cockcroft-Gault) 40.7 Glucose Level 196 mg/dL (70-99) Calcium Level 8.6 mg/dL (8.5-10.1) Test 05/08/21 12:12 Glucose (Fingerstick) 347 mg/dL (70-99) Brief Hospital Course Ms Borges is a 46 year old female w/ PMHx DM2, HTN, HLD who presents to ED c/o worsening weakness, lightheadedness and diaphoresis with near syncope and hypoglycemia at her PCPs office. She had a prolonged stay due to COVID-19 from February 07 until May 01 where she required temporary hemodialysis tracheostomy and subsequent reversal PEG placement 03/27/2021. She did develop a bedsore during this time as well and since being home over the last 6 days has felt like she has "taken a step back". She would repeat PCPs office and despite taking minimal insulin her blood sugar was 60 in the office, given glucose there and instructed to go to ED. She was home with home health but has had difficulty getting up because of her lightheadedness. In emergency room her blood sugar was 45. She remains alert and oriented. She states she is feeling dizzy, foggy headed and very weak. Chest radiograph with no acute abnormalities, WBC 17.6, Hb 10.6, platelets 379, NA 123, K3.4, BUN 25, CR 2.2, albumin 3.5, alk phos 126 otherwise LFTs within normal laboratory limits urinalysis with large leuk esterase Admitted for further care. Glucose improved creatinine improved to 1.4. General surgery consulted removed PEG tube bedside local wound care performed. Brijesh home wound care and outpatient wound care as well as ambulation with walker at home She wants to renew her home health nurse advised to cut back on insulin to Lantus 15 units nightly sliding scale during the day of Tradjenta. Continue to stay hydrated with water. Consults: GI, General Surgery Problem list: Hypoglycemia- taking glargine insulin with insufficient PO intake, will check cortisol levels as well given her prolonged steroid course N/V, abdominal pain - consider PEG removal. CT abdomen. GI consulted Weakness - with hypotension, will check AM cortisol Hyponatremia - hypovolemic,will replace Hypokalemia - likely from poor PO intake since discharge BOB on CKD - likely vasomotor nephropathy, will hydrate Stage 3 Gluteal ulcer - wound care to see DM2 - A1c 6.6 recently. With hypoglycemia glargine insulin is not likely necessary, especially in light of renal insufficiency COVID 19 recovered - complicated 3 month hospital stay as above HTN - hold meds for hypotension, checked AM cortisol, TSH HLD - statin Greater than 30 minutes spent on d/c home with home health Discharge Information Condition at Discharge: Improved Follow Up: Weeks Disposition/Orders: D/C to Home w/ HH Scheduled Atorvastatin Calcium (Atorvastatin Calcium) 40 Mg Tablet, 40 MG PO HS for FOR CHOLESTEROL, #30 Ref 0 (Reported) Entered as Reported by: SHANEKA BRUSH on 04/09/15 1423 Cefpodoxime Proxetil (Cefpodoxime Proxetil) 200 Mg Tablet, 1 TAB PO BID for UTI for 3 Days, #6 Prescribed by: LEO GROSS MD on 05/08/21 1303 Fluoxetine Hcl (Fluoxetine Hcl) 20 Mg/5 Ml Solution, 20 MG PEG DAILY for . for 30 Days, #30 Prescribed by: DIANELYS BLACKMON on 05/01/21 1249 Insulin Aspart (Novolog Flexpen) 100 Unit/1 Ml Insuln.pen, 0-9 UNITS SQ TIDACHC for Diabetes for 30 Days, #30 Ref 0 Prescribed by: LEO GROSS MD on 05/08/21 1249 Insulin Glargine,Hum.rec.anlog (Lantus) 100 Unit/1 Ml Vial, 15 UNIT SQ QHS for . for 30 Days, #1 Prescribed by: LEO GROSS MD on 05/08/21 1249 Linagliptin (Tradjenta) 5 Mg Tablet, 5 MG PO DAILY for DM2 for 30 Days, #30 Ref 5 Prescribed by: LEO GROSS MD on 05/08/21 1249 Lisinopril (Lisinopril) 5 Mg Tablet, 1 TAB PO DAILY for Prevention, #30 Ref 5 (Reported) Entered as Reported by: MARVA SUGGS on 02/07/21 1052 Ondansetron Hcl (Zofran) 4 Mg Tablet, 1 TAB PO Q6HRS for nausea, #20 Prescribed by: DIANELYS BLACKMON on 05/01/21 1251 Pantoprazole Sodium (Pantoprazole Sodium ) 40 Mg Tablet.dr, 40 MG PO DAILYAC for . for 30 Days, #30 Prescribed by: DIANELYS BLACKMON on 05/01/21 1249 Last Action: Continued on 05/07/21 0808 by LEO GROSS MD Scheduled PRN Albuterol Sulfate (Proair Hfa) 8.5 Gm Hfa.aer.ad, 2.5 MG NEB PRN Q4HRS PRN for SHORTNESS OF BREATH for 14 Days, #1 Prescribed by: DIANELYS BLACKMON on 05/01/21 1249 Hydroxyzine Hcl (Hydroxyzine Hcl) 10 Mg Tablet, 10 MG PO PRN TID PRN for ANXIETY for 30 Days, #30 Ref 5 Prescribed by: LEO GROSS MD on 05/08/21 1252 Zolpidem Tartrate (Ambien) 5 Mg Tablet, 5 MG PO PRN QHS PRN for INSOMNIA, MAY REPEAT IN 1HR for 30 Days, #6 Prescribed by: LEO GROSS MD on 05/08/21 1324 Discontinued Medications Amlodipine Besylate (Amlodipine Besylate) 10 Mg Tablet, 10 MG PO DAILY for . for 30 Days, #30 Prescribed by: DIANELYS BLACKMON on 05/01/21 1249 Justicifation of Admission Dx: Justifications for Admission: Justification of Admission Dx: N/A LEO GROSS MD May 08, 2021 13:39
[2021-05-08 15:00] VITALS: BP 152/70
[2021-05-08] MEDS: HYDROmorphone 2 MG/ML VIAL IVP PRN ×2 (15:48→20:01)
[2021-05-08] MEDS: PROCHLORPERAZINE 10 MG/2 ML VIAL. IVP PRN (15:51)
[2021-05-08] MEDS: SODIUM HYPOCHLORITE 0.125% 473 ML BOTTLE. TP SCH (16:00)
--- NOTE | 2021-05-08 16:45 | NUR ---
Wound/Ostomy Care Wound Type/Assessment: Wound care follow up for left buttock/sacrum PU, Dr. Ty at bedside for possible debridement. After informed consent was obtained Dr. Ty debrided wound, see his separate dictation. 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 Other than deep tunnelling area in central wound, remaining wound bed is pale pink and shallow, yellow slough present. Treatment Recommendations/Plan: Vac Veraflo until pt can be seen by General Surgery, Dr. Mills agreeable. Ostomy ring to periwound, 1 piece of vuong Veraflo foam packed into depth and tunnel, then coiled around, covering wound bed. Vac with strong seal at -125 mmHg suction, Veraflo settings are 20 mL of 1/4 strength Dakins instillation every 3 1/2 hours for 6 minute dwell time. Education provided: Pt educated on PU healing and prevention, advised to keep off her buttocks as much as possible, pt able to turn with minimal assistance Offloading surface/device: P500 bed, purple wedge, pillows Recommended Referrals/Tests: General Surgery for possible surgical debridement Discharge Recommendations for dressings: will continue to follow
[2021-05-08] MEDS: DOXYCYCLINE HYCLATE 100 MG in IV DEXTROSE 5% 100ML 100 ML IV SCH (17:25)
[2021-05-08 19:00] VITALS: BP 128/59
[2021-05-08] MEDS ORDERED: INSULIN GLARGINE SYRINGE. SQ SCH (21:00)
[2021-05-08] MEDS: ZOLPIDEM 5 MG TABLET. PO PRN (21:30)
[2021-05-08] MEDS: cefTRIAXone IV Push 1 GM VIAL. IVP SCH (21:31)
[2021-05-08 23:00] VITALS: BP 124/58
[2021-05-08] MEDS: diphenhydrAMINE 50 MG/ML VIAL IVP PRN (23:47)
[2021-05-09 03:00] VITALS: BP 124/56
[2021-05-09 04:51] LABS: BASO # 0.1 x10^3/uL (0.0-0.2); BASO % 1 % (0-3); EOS # 0.2 x10^3/uL (0.0-0.7); EOS % 3 % (0-3); HEMATOCRIT 27.3 % (36.0-47.0); HEMOGLOBIN 9.4 g/dL (12.0-15.5); LYMPH % 37 % (24-48); MEAN CORPUSCULAR HEMOGLOBIN 30 pg (25-35); MEAN CORPUSCULAR HGB CONC 34 g/dL (31-37); MEAN CORPUSCULAR VOLUME 86 fL (79-100); MONO # 0.8 x10^3/uL (0.0-1.1); MONO % 9 % (0-9); NEUT # 4.1 x10^3/uL (1.8-7.7); NEUT % 50 % (31-73); PLATELET COUNT 345 x10^3/uL (140-400); RED BLOOD COUNT 3.17 x10^6/uL (3.50-5.40); RED CELL DISTRIBUTION WIDTH 15.6 % (11.5-14.5); WHITE BLOOD COUNT 8.1 x10^3/uL (4.0-11.0)
[2021-05-09 05:09] LABS: CALCIUM 8.7 mg/dL (8.5-10.1); CREATININE 1.1 mg/dL (0.6-1.0); GFR 53.7; POTASSIUM 3.7 mmol/L (3.5-5.1)
[2021-05-09] MEDS: HEPARIN for SUB-Q USE 5,000 UNIT/ML VIAL. SQ SCH ×3 (06:39→23:14)
[2021-05-09 07:00] VITALS: BP 147/72
--- NOTE | 2021-05-09 07:54 | PDOC ---
[facility] [facility] PROGRESS NOTE Date of Service DOS: DATE: 05/09/21 TIME: 07:53 Chief Complaint Chief Complaint A/P: Hypoglycemia- taking glargine insulin with insufficient PO intake, will check cortisol levels as well given her prolonged steroid course N/V, abdominal pain - consider PEG removal. CT abdomen. GI consulted. Surgery removed PEG Weakness - with hypotension, will check AM cortisol Hyponatremia - hypovolemic,will replace Hypokalemia - likely from poor PO intake since discharge BOB on CKD - likely vasomotor nephropathy, will hydrate Stage 3 Gluteal ulcer - wound care debrided and placed wound VAC on 05/08/2021. Due to deep tracking tentative plans for general surgery debridement on 05/11/2021 or sometime thereafter DM2 - A1c 6.6 recently. With hypoglycemia glargine insulin is not likely necessary, especially in light of renal insufficiency COVID 19 recovered - complicated 3 month hospital stay as above HTN - hold meds for hypotension, checked AM cortisol, TSH HLD - statin FEN - ADA diet PPX - heparin FULL CODE Dispo -inpatient History of Present Illness History of Present Illness Ms Borges is a 46 year old female w/ PMHx DM2, HTN, HLD who presents to ED c/o worsening weakness, lightheadedness and diaphoresis with near syncope and hypoglycemia at her PCPs office. She had a prolonged stay due to COVID-19 from February 07 until May 01 where she required temporary hemodialysis tracheostomy and subsequent reversal PEG placement 03/27/2021. She did develop a bedsore during this time as well and since being home over the last 6 days has felt like she has "taken a step back". She would repeat PCPs office and despite taking minimal insulin her blood sugar was 60 in the office, given glucose there and instructed to go to ED. She was home with home health but has had difficulty getting up because of her lightheadedness. In emergency room her blood sugar was 45. She remains alert and oriented. She states she is feeling dizzy, foggy headed and very weak. Chest radiograph with no acute abnormalities, WBC 17.6, Hb 10.6, platelets 379, NA 123, K3.4, BUN 25, CR 2.2, albumin 3.5, alk phos 126 otherwise LFTs within normal laboratory limits urinalysis with large leuk esterase Admitted for further care. 05/08: Glucose improved creatinine improved to 1.4. General surgery consulted removed PEG tube bedside local wound care performed. Brijesh home wound care and outpatient wound care as well as ambulation with walker at home She wants to renew her home health nurse advised to cut back on insulin to Lantus 15 units nightly sliding scale during the day of Tradjenta. Continue to stay hydrated with water. Addendum: After discussion with wound care there is wound undermining it would be more appropriate to stay inpatient general surgery consult for surgical debridement under anesthesia and wound VAC placement. We will continue IV antibiotics for now Creatinine 1.1. Remains inpatient after wound reexamined she does have a consult with general surgery for wound debridement potentially on 05/11/2021. Glucose in the 200s will increase her Lantus. Working with therapy today to get around pretty well. No shortness of breath or chest pain Vitals/I&O Vitals/I&O: Vital Signs Date Time Temp Pulse Resp B/P (MAP) Pulse Ox O2 Delivery O2 Flow Rate FiO2 05/09/21 03:00 98.7 98 17 124/56 (78) 99 Room Air 98.0 98.7 I & O 05/08/21 05/08/21 05/09/21 15:00 23:00 07:00 Intake Total 750 ml Balance 750 ml Physical Exam General: Alert, Oriented X3, Cooperative Lungs: Crackles Abdomen: Soft, Other (g tube in place, some drainage around site ) Skin: Other (Stage 3 4x10x0.3 ulcer) Labs Labs: Laboratory Tests Test 05/08/21 12:12 05/08/21 17:35 05/08/21 20:24 05/09/21 04:00 Glucose (Fingerstick) 347 mg/dL (70-99) 228 mg/dL (70-99) 264 mg/dL (70-99) White Blood Count 8.1 x10^3/uL (4.0-11.0) Red Blood Count 3.17 x10^6/uL (3.50-5.40) Hemoglobin 9.4 g/dL (12.0-15.5) Hematocrit 27.3 % (36.0-47.0) Mean Corpuscular Volume 86 fL (79-100) Mean Corpuscular Hemoglobin 30 pg (25-35) Mean Corpuscular Hemoglobin Concent 34 g/dL (31-37) Red Cell Distribution Width 15.6 % (11.5-14.5) Platelet Count 345 x10^3/uL (140-400) Neutrophils (%) (Auto) 50 % (31-73) Lymphocytes (%) (Auto) 37 % (24-48) Monocytes (%) (Auto) 9 % (0-9) Eosinophils (%) (Auto) 3 % (0-3) Basophils (%) (Auto) 1 % (0-3) Neutrophils # (Auto) 4.1 x10^3/uL (1.8-7.7) Lymphocytes # (Auto) 3.0 x10^3/uL (1.0-4.8) Monocytes # (Auto) 0.8 x10^3/uL (0.0-1.1) Eosinophils # (Auto) 0.2 x10^3/uL (0.0-0.7) Basophils # (Auto) 0.1 x10^3/uL (0.0-0.2) Sodium Level 135 mmol/L (136-145) Potassium Level 3.7 mmol/L (3.5-5.1) Chloride Level 100 mmol/L (98-107) Carbon Dioxide Level 28 mmol/L (21-32) Anion Gap 7 (6-14) Blood Urea Nitrogen 7 mg/dL (7-20) Creatinine 1.1 mg/dL (0.6-1.0) Estimated GFR (Cockcroft-Gault) 53.7 Glucose Level 201 mg/dL (70-99) Calcium Level 8.7 mg/dL (8.5-10.1) Assessment and Plan Assessmemt and Plan Problems Medical Problems: (1) Hypoglycemia Status: Acute (2) Hypotension Status: Acute (3) UTI (urinary tract infection) Status: Acute (4) Wound infection Status: Acute Comment Review of Relevant I have reviewed the following items mazin (where applicable) has been applied. Medications: Current Medications Medications (Trade) Dose Ordered Sig/Pepe Route PRN Reason Start Time Stop Time Status Last Admin Dose Admin Insulin Human Lispro (HumaLOG) 0-9 UNITS TIDWMEALS SQ 05/08/21 08:00 05/08/21 17:41 Potassium Chloride (Klor-Con) 40 meq 1X ONCE PO 05/08/21 11:15 05/08/21 11:16 DC 05/08/21 12:24 Insulin Glargine (Lantus Syringe) 15 unit QHS SQ 05/08/21 21:00 05/08/21 21:36 Doxycycline Hyclate 100 mg/ Dextrose 100 ml @ 50 mls/hr Q12HR IV 05/08/21 16:00 05/08/21 17:25 Sodium Hypochlorite (Dakin'S 1/4 Strength) 1 reji DAILY TP 05/08/21 16:00 05/08/21 16:00 Justifications for Admission General Conditions Other justification for admit: Hypotension, Hypoglycemia, Sacral Wound Other Justification LEO GROSS MD May 09, 2021 07:54
[2021-05-09] MEDS: INSULIN LISPRO 300 UNITS/3 ML VIAL. SQ SCH ×3 (08:00→18:06)
[2021-05-09] MEDS: HYDROmorphone 2 MG/ML VIAL IVP PRN ×4 (08:40→21:14)
[2021-05-09] MEDS: ASCORBIC ACID 1,000 MG TABLET PO SCH (08:48)
[2021-05-09] MEDS: LINAGLIPTIN 5 MG TABLET PO SCH (08:48)
[2021-05-09] MEDS: PANTOPRAZOLE 40 MG TABLET.DR. PO SCH (08:48)
[2021-05-09] MEDS: MULTIVITAMIN with MINERAL TABLET. PO SCH (08:48)
[2021-05-09] MEDS: SODIUM HYPOCHLORITE 0.125% 473 ML BOTTLE. TP SCH (09:00)
[2021-05-09] MEDS: DOXYCYCLINE HYCLATE 100 MG in IV DEXTROSE 5% 100ML 100 ML IV SCH ×2 (09:07→21:21)
[2021-05-09 11:00] VITALS: BP 150/71
[2021-05-09 15:00] VITALS: BP 119/65
[2021-05-09 19:55] VITALS: BP 130/66
[2021-05-09] MEDS: diphenhydrAMINE 50 MG/ML VIAL IVP PRN (21:14)
[2021-05-09] MEDS: LACTOBACILLUS RHAMNOSUS GG 1 CAPSULE. PO SCH (21:20)
[2021-05-09] MEDS: cefTRIAXone IV Push 1 GM VIAL. IVP SCH (21:21)
[2021-05-09 23:09] VITALS: BP 126/73
[2021-05-09] MEDS: INSULIN GLARGINE SYRINGE. SQ SCH (23:13)
[2021-05-10] MEDS: HYDROmorphone 2 MG/ML VIAL IVP PRN ×2 (03:56→19:38)
[2021-05-10 03:59] VITALS: BP 164/89
[2021-05-10] MEDS: ONDANSETRON PF 4 MG/2 ML VIAL. IVP PRN ×2 (04:00→19:37)
[2021-05-10 06:37] LABS: BASO # 0.1 x10^3/uL (0.0-0.2); BASO % 1 % (0-3); EOS # 0.2 x10^3/uL (0.0-0.7); EOS % 2 % (0-3); HEMATOCRIT 28.7 % (36.0-47.0); HEMOGLOBIN 9.5 g/dL (12.0-15.5); LYMPH # 1.9 x10^3/uL (1.0-4.8); LYMPH % 22 % (24-48); MEAN CORPUSCULAR HEMOGLOBIN 29 pg (25-35); MEAN CORPUSCULAR HGB CONC 33 g/dL (31-37); MEAN CORPUSCULAR VOLUME 87 fL (79-100); MONO # 0.5 x10^3/uL (0.0-1.1); MONO % 6 % (0-9); NEUT % 69 % (31-73); PLATELET COUNT 369 x10^3/uL (140-400); RED CELL DISTRIBUTION WIDTH 15.5 % (11.5-14.5); WHITE BLOOD COUNT 8.7 x10^3/uL (4.0-11.0)
[2021-05-10 07:00] VITALS: BP 149/79
[2021-05-10 07:05] LABS: CALCIUM 8.7 mg/dL (8.5-10.1); CREATININE 1.4 mg/dL (0.6-1.0); GFR 40.7; POTASSIUM 4.6 mmol/L (3.5-5.1)
[2021-05-10] MEDS: PANTOPRAZOLE 40 MG TABLET.DR. PO SCH ×2 (07:45→10:08)
[2021-05-10] MEDS: PROCHLORPERAZINE 10 MG/2 ML VIAL. IVP PRN (07:45)
[2021-05-10] MEDS: HEPARIN for SUB-Q USE 5,000 UNIT/ML VIAL. SQ SCH ×2 (07:46→13:37)
[2021-05-10] MEDS: INSULIN LISPRO 300 UNITS/3 ML VIAL. SQ SCH ×3 (08:00→17:43)
--- NOTE | 2021-05-10 08:21 | PDOC ---
[employer] PROGRESS NOTE Date of Service DOS: DATE: 05/10/21 TIME: 08:18 Chief Complaint Chief Complaint A/P: Hypoglycemia- taking glargine insulin with insufficient PO intake, will check cortisol levels as well given her prolonged steroid course N/V, abdominal pain - consider PEG removal. CT abdomen. GI consulted. Surgery removed PEG Weakness - with hypotension, will check AM cortisol Hyponatremia - hypovolemic,will replace Hypokalemia - likely from poor PO intake since discharge BOB on CKD - likely vasomotor nephropathy, will hydrate Stage 3 Gluteal ulcer - wound care debrided and placed wound VAC on 05/08/2021. Due to deep tracking tentative plans for general surgery debridement on 05/11/2021 or sometime thereafter DM2 - A1c 6.6 recently. With hypoglycemia glargine insulin is not likely necessary, especially in light of renal insufficiency COVID 19 recovered - complicated 3 month hospital stay as above HTN - hold meds for hypotension, checked AM cortisol, TSH HLD - statin FEN - ADA diet PPX - heparin FULL CODE Dispo -inpatient History of Present Illness History of Present Illness Ms Borges is a 46 year old female w/ PMHx DM2, HTN, HLD who presents to ED c/o worsening weakness, lightheadedness and diaphoresis with near syncope and hypoglycemia at her PCPs office. She had a prolonged stay due to COVID-19 from February 07 until May 01 where she required temporary hemodialysis tracheostomy and subsequent reversal PEG placement 03/27/2021. She did develop a bedsore during this time as well and since being home over the last 6 days has felt like she has "taken a step back". She would repeat PCPs office and despite taking minimal insulin her blood sugar was 60 in the office, given glucose there and instructed to go to ED. She was home with home health but has had difficulty getting up because of her lightheadedness. In emergency room her blood sugar was 45. She remains alert and oriented. She states she is feeling dizzy, foggy headed and very weak. Chest radiograph with no acute abnormalities, WBC 17.6, Hb 10.6, platelets 379, NA 123, K3.4, BUN 25, CR 2.2, albumin 3.5, alk phos 126 otherwise LFTs within normal laboratory limits urinalysis with large leuk esterase Admitted for further care. 05/08: Glucose improved creatinine improved to 1.4. General surgery consulted removed PEG tube bedside local wound care performed. Brijesh home wound care and outpatient wound care as well as ambulation with walker at home She wants to renew her home health nurse advised to cut back on insulin to Lantus 15 units nightly sliding scale during the day of Tradjenta. Continue to stay hydrated with water. Addendum: After discussion with wound care there is wound undermining it would be more appropriate to stay inpatient general surgery consult for surgical debridement under anesthesia and wound VAC placement. We will continue IV antibiotics for now 05/09: Creatinine 1.1. Remains inpatient after wound reexamined she does have a consult with general surgery for wound debridement potentially on 05/11/2021. Glucose in the 200s will increase her Lantus. Working with therapy today to get around pretty well. No shortness of breath or chest pain Creatinine 1.4. Lost IV access. Glucose climbed up, has been eating additional meals. Plan for continued wound vac and surgical wound assessment. Vitals/I&O Vitals/I&O: Vital Signs Date Time Temp Pulse Resp B/P (MAP) Pulse Ox O2 Delivery O2 Flow Rate FiO2 05/10/21 04:26 95 Room Air 98.0 05/10/21 03:59 98.6 107 16 164/89 (114) 98.6 I & O 05/09/21 05/09/21 05/10/21 15:00 23:00 07:00 Intake Total 900 ml 900 ml 380 ml Output Total 700 ml Balance 900 ml 900 ml -320 ml Physical Exam General: Alert, Oriented X3, Cooperative Lungs: Crackles Abdomen: Soft, Other (g tube in place, some drainage around site ) Skin: Other (Stage 3 4x10x0.3 ulcer) Labs Labs: Laboratory Tests Test 05/09/21 08:50 05/09/21 11:48 05/09/21 17:14 05/10/21 06:20 Glucose (Fingerstick) 254 mg/dL (70-99) 230 mg/dL (70-99) 315 mg/dL (70-99) White Blood Count 8.7 x10^3/uL (4.0-11.0) Red Blood Count 3.30 x10^6/uL (3.50-5.40) Hemoglobin 9.5 g/dL (12.0-15.5) Hematocrit 28.7 % (36.0-47.0) Mean Corpuscular Volume 87 fL (79-100) Mean Corpuscular Hemoglobin 29 pg (25-35) Mean Corpuscular Hemoglobin Concent 33 g/dL (31-37) Red Cell Distribution Width 15.5 % (11.5-14.5) Platelet Count 369 x10^3/uL (140-400) Neutrophils (%) (Auto) 69 % (31-73) Lymphocytes (%) (Auto) 22 % (24-48) Monocytes (%) (Auto) 6 % (0-9) Eosinophils (%) (Auto) 2 % (0-3) Basophils (%) (Auto) 1 % (0-3) Neutrophils # (Auto) 6.0 x10^3/uL (1.8-7.7) Lymphocytes # (Auto) 1.9 x10^3/uL (1.0-4.8) Monocytes # (Auto) 0.5 x10^3/uL (0.0-1.1) Eosinophils # (Auto) 0.2 x10^3/uL (0.0-0.7) Basophils # (Auto) 0.1 x10^3/uL (0.0-0.2) Sodium Level 135 mmol/L (136-145) Potassium Level 4.6 mmol/L (3.5-5.1) Chloride Level 101 mmol/L (98-107) Carbon Dioxide Level 28 mmol/L (21-32) Anion Gap 6 (6-14) Blood Urea Nitrogen 8 mg/dL (7-20) Creatinine 1.4 mg/dL (0.6-1.0) Estimated GFR (Cockcroft-Gault) 40.7 Glucose Level 237 mg/dL (70-99) Calcium Level 8.7 mg/dL (8.5-10.1) Assessment and Plan Assessmemt and Plan Problems Medical Problems: (1) Hypoglycemia Status: Acute (2) Hypotension Status: Acute (3) UTI (urinary tract infection) Status: Acute (4) Wound infection Status: Acute Comment Review of Relevant I have reviewed the following items mazin (where applicable) has been applied. Medications: Current Medications Medications (Trade) Dose Ordered Sig/Pepe Route PRN Reason Start Time Stop Time Status Last Admin Dose Admin Insulin Glargine (Lantus Syringe) 20 unit QHS SQ 05/09/21 21:00 05/09/21 23:13 Lactobacillus Rhamnosus (Culturelle) 1 cap BID PO 05/09/21 21:00 05/09/21 21:20 Justifications for Admission General Conditions Other justification for admit: Hypotension, Hypoglycemia, Sacral Wound Other Justification LEO GROSS MD May 10, 2021 08:21
[2021-05-10] MEDS: SODIUM HYPOCHLORITE 0.125% 473 ML BOTTLE. TP SCH (09:00)
[2021-05-10] MEDS: LINAGLIPTIN 5 MG TABLET PO SCH (10:08)
[2021-05-10] MEDS: MULTIVITAMIN with MINERAL TABLET. PO SCH (10:08)
[2021-05-10] MEDS: ASCORBIC ACID 1,000 MG TABLET PO SCH (10:08)
[2021-05-10] MEDS: LACTOBACILLUS RHAMNOSUS GG 1 CAPSULE. PO SCH ×2 (10:08→19:41)
[2021-05-10] MEDS: DOXYCYCLINE HYCLATE 100 MG in IV DEXTROSE 5% 100ML 100 ML IV SCH ×2 (10:09→19:41)
[2021-05-10 11:00] VITALS: BP 149/79
[2021-05-10 15:00] VITALS: BP 168/79
[2021-05-10 19:00] VITALS: BP_SYST 100; BP_SYST 155; BP_SYST 172; BP_DIAS 60; BP_DIAS 82; BP_DIAS 93
--- NOTE | 2021-05-10 19:19 | RAD ---
XR CHEST 1V Clinical History: Reason: confirm PICC placement / Spl. Instructions: / History: Technique: AP view of the chest was obtained at 05/10/2021 7:10 PM. Comparison: None. Findings: The cardiomediastinal silhouette is normal. The pulmonary vasculature is normal. The lungs and pleura l margins are clear. Mild elevation right hemidiaphragm seen previously. There has been interval placement of left PICC wi th its tip downward in the low SVC. Impression: No evidence of an acute cardiopulmonary process. Left PICC well-positioned. Electronically signed by: Jesse Obrien III, MD (05/10/2021 7:17 PM) MARIYA
[2021-05-10] MEDS: cefTRIAXone IV Push 1 GM VIAL. IVP SCH (19:41)
[2021-05-10 23:00] VITALS: BP 150/67
[2021-05-10] MEDS: diphenhydrAMINE 50 MG/ML VIAL IVP PRN (23:58)
[2021-05-10] MEDS: ZOLPIDEM 5 MG TABLET. PO PRN (23:58)
[2021-05-11] MEDS: PROCHLORPERAZINE 10 MG/2 ML VIAL. IVP PRN (00:57)
[2021-05-11] MEDS: HYDROmorphone 2 MG/ML VIAL IVP PRN ×4 (00:57→20:06)
[2021-05-11] MEDS: INSULIN GLARGINE SYRINGE. SQ SCH ×2 (01:43→20:19)
[2021-05-11] MEDS: HEPARIN for SUB-Q USE 5,000 UNIT/ML VIAL. SQ SCH ×4 (01:48→21:00)
[2021-05-11 03:34] VITALS: BP 118/52
[2021-05-11 06:48] LABS: BASO # 0.1 x10^3/uL (0.0-0.2); BASO % 1 % (0-3); EOS # 0.1 x10^3/uL (0.0-0.7); EOS % 1 % (0-3); HEMATOCRIT 25.9 % (36.0-47.0); HEMOGLOBIN 8.8 g/dL (12.0-15.5); LYMPH # 2.5 x10^3/uL (1.0-4.8); LYMPH % 35 % (24-48); MEAN CORPUSCULAR HEMOGLOBIN 29 pg (25-35); MEAN CORPUSCULAR HGB CONC 34 g/dL (31-37); MEAN CORPUSCULAR VOLUME 86 fL (79-100); MONO # 0.4 x10^3/uL (0.0-1.1); MONO % 6 % (0-9); NEUT # 4.1 x10^3/uL (1.8-7.7); NEUT % 57 % (31-73); PLATELET COUNT 294 x10^3/uL (140-400); RED BLOOD COUNT 3.03 x10^6/uL (3.50-5.40); RED CELL DISTRIBUTION WIDTH 15.1 % (11.5-14.5); WHITE BLOOD COUNT 7.3 x10^3/uL (4.0-11.0)
[2021-05-11 07:00] VITALS: BP 237/107
[2021-05-11 07:01] LABS: CALCIUM 8.9 mg/dL (8.5-10.1); CREATININE 1.2 mg/dL (0.6-1.0); GFR 48.6; POTASSIUM 4.2 mmol/L (3.5-5.1)
[2021-05-11] MEDS: INSULIN LISPRO 300 UNITS/3 ML VIAL. SQ SCH ×3 (08:00→17:00)
[2021-05-11] MEDS: ONDANSETRON PF 4 MG/2 ML VIAL. IVP PRN ×2 (08:52→16:16)
[2021-05-11] MEDS: DOXYCYCLINE HYCLATE 100 MG in IV DEXTROSE 5% 100ML 100 ML IV SCH ×2 (08:52→20:05)
[2021-05-11] MEDS: MULTIVITAMIN with MINERAL TABLET. PO SCH (09:00)
[2021-05-11] MEDS: ASCORBIC ACID 1,000 MG TABLET PO SCH (09:00)
[2021-05-11] MEDS: LINAGLIPTIN 5 MG TABLET PO SCH (09:00)
[2021-05-11] MEDS: LACTOBACILLUS RHAMNOSUS GG 1 CAPSULE. PO SCH ×2 (09:00→20:06)
[2021-05-11] MEDS: SODIUM HYPOCHLORITE 0.125% 473 ML BOTTLE. TP SCH (09:00)
[2021-05-11 10:16] VITALS: BP 156/68
--- NOTE | 2021-05-11 11:42 | PDOC ---
[facility] PROGRESS NOTE Date of Service DOS: DATE: 05/11/21 TIME: 11:25 Chief Complaint Chief Complaint A/P: Hypoglycemia Hypotension N/V, abdominal pain Weakness Hyponatremia Hypokalemia BOB on CKD Stage 3 Gluteal ulcer DM2 COVID 19 recovered HTN HLD History of Present Illness History of Present Illness Ms Borges is a 46 year old female w/ PMHx DM2, HTN, HLD who presents to ED c/o worsening weakness, lightheadedness and diaphoresis with near syncope and hypoglycemia at her PCPs office. She had a prolonged stay due to COVID-19 from February 07 until May 01 where she required temporary hemodialysis tracheostomy and subsequent reversal PEG p lacement 03/27/2021. She did develop a bedsore during this time as well and since being home over the last 6 days has felt like she has "taken a step back". She would repeat PCPs office and despite taking minimal insulin her blood sugar was 60 in the office, given glucose there and instructed to go to ED. She was home with home health but has had difficulty getting up because of her lightheadedness. In emergency room her blood sugar was 45. She remains alert and oriented. She states she is feeling dizzy, foggy headed and very weak. Chest radiograph with no acute abnormalities, WBC 17.6, Hb 10.6, platelets 379, NA 123, K3.4, BUN 25, CR 2.2, albumin 3.5, alk phos 126 otherwise LFTs within normal laboratory limits urinalysis with large leuk esterase Admitted for further care. 05/08: Glucose improved creatinine improved to 1.4. General surgery consulted removed PEG tube bedside local wound care performed. Brijesh home wound care and outpatient wound care as well as ambulation with walker at home She wants to renew her home health nurse advised to cut back on insulin to Lantus 15 units nightly sliding scale during the day of Tradjenta. Continue to stay hydrated with water. Addendum: After discussion with wound care there is wound undermining it would be more appropriate to stay inpatient general surgery consult for surgical debridement under anesthesia and wound VAC placement. We will continue IV antibiotics for now 05/09: Creatinine 1.1. Remains inpatient after wound reexamined she does have a consult with general surgery for wound debridement potentially on 05/11/2021. Glucose in the 200s will increase her Lantus. Working with therapy today to get around pretty well. No shortness of breath or chest pain 05/10: Creatinine 1.4. Lost IV access. Glucose climbed up, has been eating additional meals. Plan for continued wound vac and surgical wound assessment. 05/11 Patient seen and examined at bedside Chart reviewed Cr at 1.2 Glucose ~169 BP ~ 118/52 Planning for I+D (possibly today) Wound examined Patient has no other complaints at this time Discussed case with RN and SW Vitals/I&O Vitals/I&O: Vital Signs Date Time Temp Pulse Resp B/P (MAP) Pulse Ox O2 Delivery O2 Flow Rate FiO2 05/11/21 10:16 98.0 99 18 156/68 (97) 95 Room Air 98.0 05/10/21 20:00 98.0 I & O 05/10/21 05/10/21 05/11/21 15:00 23:00 07:00 Intake Total 100 ml 320 ml Output Total 200 ml Balance 100 ml -200 ml 320 ml Physical Exam General: Alert, Oriented X3, Cooperative Heart: Normal S1, Normal S2, Other (Slightly tachycardic ~101) Lungs: Crackles Abdomen: Soft, Other (g tube in place, some drainage around site ) Extremities: No clubbing, No cyanosis Skin: Other (Stage 3 4x10x0.3 ulcer) Labs Labs: Laboratory Tests Test 05/10/21 11:40 05/10/21 17:13 05/10/21 20:05 05/11/21 06:30 Glucose (Fingerstick) 297 mg/dL (70-99) 246 mg/dL (70-99) 260 mg/dL (70-99) White Blood Count 7.3 x10^3/uL (4.0-11.0) Red Blood Count 3.03 x10^6/uL (3.50-5.40) Hemoglobin 8.8 g/dL (12.0-15.5) Hematocrit 25.9 % (36.0-47.0) Mean Corpuscular Volume 86 fL (79-100) Mean Corpuscular Hemoglobin 29 pg (25-35) Mean Corpuscular Hemoglobin Concent 34 g/dL (31-37) Red Cell Distribution Width 15.1 % (11.5-14.5) Platelet Count 294 x10^3/uL (140-400) Neutrophils (%) (Auto) 57 % (31-73) Lymphocytes (%) (Auto) 35 % (24-48) Monocytes (%) (Auto) 6 % (0-9) Eosinophils (%) (Auto) 1 % (0-3) Basophils (%) (Auto) 1 % (0-3) Neutrophils # (Auto) 4.1 x10^3/uL (1.8-7.7) Lymphocytes # (Auto) 2.5 x10^3/uL (1.0-4.8) Monocytes # (Auto) 0.4 x10^3/uL (0.0-1.1) Eosinophils # (Auto) 0.1 x10^3/uL (0.0-0.7) Basophils # (Auto) 0.1 x10^3/uL (0.0-0.2) Sodium Level 137 mmol/L (136-145) Potassium Level 4.2 mmol/L (3.5-5.1) Chloride Level 100 mmol/L (98-107) Carbon Dioxide Level 28 mmol/L (21-32) Anion Gap 9 (6-14) Blood Urea Nitrogen 8 mg/dL (7-20) Creatinine 1.2 mg/dL (0.6-1.0) Estimated GFR (Cockcroft-Gault) 48.6 Glucose Level 200 mg/dL (70-99) Calcium Level 8.9 mg/dL (8.5-10.1) Test 05/11/21 08:13 Glucose (Fingerstick) 169 mg/dL (70-99) Review of Systems Review of Systems: ROS negative Assessment and Plan Assessmemt and Plan Problems Medical Problems: (1) Hypoglycemia Status: Acute (2) Hypotension Status: Acute (3) UTI (urinary tract infection) Status: Acute (4) Wound infection Status: Acute Hypoglycemia Hypotension N/V, abdominal pain Weakness Hyponatremia Hypokalemia BOB on CKD Stage 3 Gluteal ulcer DM2 COVID 19 recovered HTN HLD Plan WC, GI and Gen surg consulted, inputs appreciated Continue IV fluids Continue IV Abx Continue to hold antihypertensives Checked AM cortisol and TSH Continue statin Restart home meds as indicated Trend labs PEG removed CT AP negative for abcess/free air (fat stranding noted on PEG tube) CT Chest negative Hyponatremia currently resolved Hypokalemia currently resolved (likely from poor PO intake since discharge) Stage 3 Gluteal ulcer (wound care debrided and placed wound VAC on 05/08/2021. Due to deep tracking tentative plans for general surgery debridement on 05/11/2021 or sometime thereafter) COVID 19 recovered PT/OT ordered DVT Prophylaxis Full Code Discharge disposition pending subspecialist input Comment Review of Relevant I have reviewed the following items mazin (where applicable) has been applied. Justifications for Admission General Conditions Other justification for admit: Hypotension, Hypoglycemia, Sacral Wound Other Justification DIANELYS BLACKMON III DO May 11, 2021 11:42
--- NOTE | 2021-05-11 12:11 | PDOC ---
Date of Service: DATE: 05/11/21 TIME: 11:56 Subjective: Subjective: Wants to know the plan for I&D because her mouth is very dry. Vomited a little of what she ate for dinner last night about 1.5 hours after. Thinks it's "less than before." Had some upper abdominal pain that resolved. Stooling without issue. Objective: Objective: D/w nurse - possible I&D today, has been quite hypertensive. Vital Signs: Vital Signs Date Time Temp Pulse Resp B/P (MAP) Pulse Ox O2 Delivery O2 Flow Rate FiO2 05/11/21 10:16 98.0 99 18 156/68 (97) 95 Room Air 98.0 05/10/21 20:00 98.0 Labs: Laboratory Tests Test 05/10/21 17:13 05/10/21 20:05 05/11/21 06:30 05/11/21 08:13 Glucose (Fingerstick) 246 mg/dL 260 mg/dL 169 mg/dL White Blood Count 7.3 x10^3/uL Red Blood Count 3.03 x10^6/uL Hemoglobin 8.8 g/dL Hematocrit 25.9 % Mean Corpuscular Volume 86 fL Mean Corpuscular Hemoglobin 29 pg Mean Corpuscular Hemoglobin Concent 34 g/dL Red Cell Distribution Width 15.1 % Platelet Count 294 x10^3/uL Neutrophils (%) (Auto) 57 % Lymphocytes (%) (Auto) 35 % Monocytes (%) (Auto) 6 % Eosinophils (%) (Auto) 1 % Basophils (%) (Auto) 1 % Neutrophils # (Auto) 4.1 x10^3/uL Lymphocytes # (Auto) 2.5 x10^3/uL Monocytes # (Auto) 0.4 x10^3/uL Eosinophils # (Auto) 0.1 x10^3/uL Basophils # (Auto) 0.1 x10^3/uL Sodium Level 137 mmol/L Potassium Level 4.2 mmol/L Chloride Level 100 mmol/L Carbon Dioxide Level 28 mmol/L Anion Gap 9 Blood Urea Nitrogen 8 mg/dL Creatinine 1.2 mg/dL Estimated GFR (Cockcroft-Gault) 48.6 Glucose Level 200 mg/dL Calcium Level 8.9 mg/dL PE: GEN: NAD LUNGS: CTAB HEART: RRR ABD: NABS, S/ND/NT NEURO/PSYCH: A & O 3 A/P: Left buttock/sacrum pressure ulcer w/ wound vac - possible I&D H/o COVID, surgical G tube removed 05/08 Vomiting HTN -- Will review w/ Dr. Justice. Continue PPI. Justicifation of Admission Dx: Justifications for Admission: Justification of Admission Dx: N/A JANELLE MONTENEGRO May 11, 2021 12:11
--- NOTE | 2021-05-11 13:01 | CONS ---
DATE OF CONSULTATION: 05/11/2021 REFERRING PHYSICIAN: Kavin Mora MD REASON FOR CONSULTATION: Sacral wound. HISTORY OF PRESENT ILLNESS: The patient is well known to us from last admissions, see last HPI and the last ID note for full details. The patient had prolonged hospitalization until mid April from 01/2021 for COVID and associated complications. She was hypoglycemic. She has been tolerating meals well. Surgery was consulted for back wound for which she is awaiting I and D. G-tube was removed without difficulty. The patient was afebrile. White count was 13.9. Creatinine of 1.2. The patient is currently on ceftriaxone and doxycycline. ID consultation has been requested for further evaluation and treatment. The patient feels better today. Denies any fevers, chills, nausea, vomiting, difficulty swallowing, abdominal pain, symptoms. The patient is more active at home, though the wound is advanced. She had undergone CT of the abdomen, which did not show any acute osseous process. No acute abdominal or pelvic findings. ID consultation has been requested for antibiotic management. PAST MEDICAL HISTORY: 1. Prolonged stay due to COVID-19 from 02/07-05/01. 2. 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 PAST SURGICAL HISTORY: Status post breast augmentation, abdominoplasty, right knee, left CTR, cholecystectomy, hysterectomy as above, otherwise. FAMILY HISTORY: Not significant. SOCIAL HISTORY: , lives at home. No smoking, alcohol or ETOH. CURRENT MEDICATIONS: Rocephin and doxycycline. Other medications reviewed in medication list. ALLERGIES: VENOM, HONEY, OXYCODONE, SHELLFISH, TREE NUT. REVIEW OF SYSTEMS: Negative except for above in HPI. PHYSICAL EXAMINATION: VITAL SIGNS: Stable. GENERAL: Alert, oriented x 3 female, looks much better than my evaluation last admission. HEENT: Normocephalic, atraumatic. Anicteric. No thrush. Oral mucosa moist. NECK: Supple, no JVD. Trach site dry dressing intact, clean. LUNGS: Clear bilaterally. No wheezing. HEART: S1, S2. No gallops or murmurs. ABDOMEN: Soft, obese. Bowel sounds present, nontender, nondistended. G-tube site removal looks clean. EXTREMITIES: No edema, no cyanosis. DERMATOLOGIC: Warm, dry, no generalized rash. BACK: Wound VAC present, not taken down. Wound pictures pending at this time, we will follow up on the same. LABORATORY DATA: WBC 7.3, hemoglobin 8.8, hematocrit 25.9, platelets 294. Sodium 137, potassium 4.2, chloride 100, bicarb 28, BUN 8, creatinine 1.2, glucose 200, calcium 8.9. UA shows large leukocyte esterase, wbc too numerous to count. MICRO: Urine culture, multiple organisms, possible contamination. Blood culture negative. IMAGING: Chest x-ray reviewed. Abdomen and pelvis reviewed. IMPRESSION: 1. Hypoglycemia, present on admission, stable. 2. Nausea, vomiting, abdominal pain. Percutaneous endoscopic gastrostomy tube removal. 3. Generalized weakness, stable. 4. Pyuria. Urine culture multiple organisms, possible colonization. 5. Hyponatremia, hypokalemia, stable. 6. Acute kidney injury on chronic kidney disease, improving, likely dehydration. 7. Gluteal ulcer due to deep tracking, wound team plans for debridement today. 8. Diabetes mellitus 2. 9. COVID-19, recovered with complicated prolonged hospitalization as above. 10. Hypertension/hyperlipidemia. RECOMMENDATIONS: 1. Continue current treatment. 2. Offload. 3. Wound VAC/wound care as directed. 4. Monitor labs and cultures. 5. Continue supportive care. 6. Optimize nutrition. Thank you, Dr. Mora, for consulting Infectious Disease to participate in this patient's care. If you have any questions, do not hesitate to contact me. Discussed with nursing staff. PEDRO LUIS STEVENSON: Asa TID: [id number] [facility]
--- NOTE | 2021-05-11 13:04 | NUR ---
Non administered 1400 Heparin SQ dose due to tentative I&D today.
[2021-05-11] MEDS ORDERED: fentaNYL PF VIAL 100 MCG/2 ML VIAL IVP PRN ×2 (14:00)
[2021-05-11] MEDS ORDERED: PROCHLORPERAZINE 10 MG/2 ML VIAL. IVP PRN (14:00)
[2021-05-11] MEDS ORDERED: IV RINGERS,LACTATED 1000ML 1,000 ML IV SCH (14:00)
[2021-05-11] MEDS ORDERED: HYDROmorphone 2 MG/ML VIAL IVP PRN (14:00)
[2021-05-11] MEDS ORDERED: MORPHINE SULFATE 2 MG/ML INJ. IVP PRN (14:00)
[2021-05-11] MEDS ORDERED: LIDOCAINE 2% PF 5 ML VIAL. ONE (14:01)
[2021-05-11] MEDS ORDERED: PROPOFOL 10 MG/ML (20ML) VIAL. IV ONE (14:01)
[2021-05-11] MEDS ORDERED: ONDANSETRON PF 4 MG/2 ML VIAL. ONE (14:02)
[2021-05-11] MEDS ORDERED: ROCURONIUM 50 MG/5 ML VIAL. ONE (14:02)
[2021-05-11] MEDS ORDERED: fentaNYL PF VIAL 100 MCG/2 ML VIAL ONE (14:05)
[2021-05-11 15:00] VITALS: BP 167/84
[2021-05-11 19:00] VITALS: BP 155/71
[2021-05-11] MEDS: cefTRIAXone IV Push 1 GM VIAL. IVP SCH (20:05)
[2021-05-11] MEDS: ZOLPIDEM 5 MG TABLET. PO PRN (20:06)
[2021-05-11 23:00] VITALS: BP 148/59
[2021-05-12 03:00] VITALS: BP 164/91
[2021-05-12] MEDS: HEPARIN for SUB-Q USE 5,000 UNIT/ML VIAL. SQ SCH ×3 (04:52→20:57)
[2021-05-12] MEDS: PANTOPRAZOLE 40 MG TABLET.DR. PO SCH (04:53)
[2021-05-12 06:34] LABS: BASO # 0.1 x10^3/uL (0.0-0.2); BASO % 1 % (0-3); EOS # 0.1 x10^3/uL (0.0-0.7); EOS % 2 % (0-3); HEMATOCRIT 26.4 % (36.0-47.0); HEMOGLOBIN 8.8 g/dL (12.0-15.5); LYMPH # 2.1 x10^3/uL (1.0-4.8); LYMPH % 31 % (24-48); MEAN CORPUSCULAR HEMOGLOBIN 29 pg (25-35); MEAN CORPUSCULAR HGB CONC 33 g/dL (31-37); MEAN CORPUSCULAR VOLUME 86 fL (79-100); MONO # 0.5 x10^3/uL (0.0-1.1); MONO % 7 % (0-9); NEUT # 3.8 x10^3/uL (1.8-7.7); NEUT % 58 % (31-73); PLATELET COUNT 355 x10^3/uL (140-400); RED BLOOD COUNT 3.05 x10^6/uL (3.50-5.40); RED CELL DISTRIBUTION WIDTH 15.3 % (11.5-14.5); WHITE BLOOD COUNT 6.5 x10^3/uL (4.0-11.0)
[2021-05-12 06:46] LABS: CALCIUM 8.8 mg/dL (8.5-10.1); CREATININE 1.1 mg/dL (0.6-1.0); GFR 53.7; POTASSIUM 3.9 mmol/L (3.5-5.1)
[2021-05-12 07:00] VITALS: BP 181/89
[2021-05-12] MEDS: INSULIN LISPRO 300 UNITS/3 ML VIAL. SQ SCH ×3 (08:00→17:06)
[2021-05-12] MEDS: DOXYCYCLINE HYCLATE 100 MG in IV DEXTROSE 5% 100ML 100 ML IV SCH ×2 (08:26→20:53)
[2021-05-12] MEDS: LACTOBACILLUS RHAMNOSUS GG 1 CAPSULE. PO SCH ×2 (08:28→20:53)
[2021-05-12] MEDS: MULTIVITAMIN with MINERAL TABLET. PO SCH (08:28)
[2021-05-12] MEDS: LINAGLIPTIN 5 MG TABLET PO SCH (08:28)
[2021-05-12] MEDS: ASCORBIC ACID 1,000 MG TABLET PO SCH (08:29)
[2021-05-12] MEDS: SODIUM HYPOCHLORITE 0.125% 473 ML BOTTLE. TP SCH (08:29)
--- NOTE | 2021-05-12 08:41 | PDOC ---
Infectious Disease Note Subjective: Subjective Patient without complaints. Awaiting I&D later today Says it is difficult to continue maintaining offload Vital Signs: Vital Signs Vital Signs Date Time Temp Pulse Resp B/P (MAP) Pulse Ox O2 Delivery O2 Flow Rate FiO2 05/12/21 03:00 98.4 98 20 164/91 (115) 95 98.4 05/11/21 20:36 Room Air 98.0 Physical Exam: PHYSICAL EXAM GENERAL: Alert, oriented x 3 female, looks much better than my evaluation last admission. HEENT: Normocephalic, atraumatic. Anicteric. No thrush. Oral mucosa moist. NECK: Supple, no JVD. Trach site dry dressing intact, clean. LUNGS: Clear bilaterally. No wheezing. HEART: S1, S2. No gallops or murmurs. ABDOMEN: Soft, obese. Bowel sounds present, nontender, nondistended. G-tube site removal looks clean. EXTREMITIES: No edema, no cyanosis. DERMATOLOGIC: Warm, dry, no generalized rash. BACK: Wound VAC present, not taken down. Wound pictures pending at this time, we will follow up on the same. Medications: Inpatient Meds: Medications reviewed. Labs: Lab Laboratory Tests Test 05/11/21 12:20 05/11/21 13:57 05/11/21 17:00 05/11/21 20:16 Glucose (Fingerstick) 189 mg/dL (70-99) 138 mg/dL (70-99) 295 mg/dL (70-99) SARS-CoV-2 Antigen (Rapid) Negative (NEGATIVE) Test 05/12/21 06:00 05/12/21 07:57 White Blood Count 6.5 x10^3/uL (4.0-11.0) Red Blood Count 3.05 x10^6/uL (3.50-5.40) Hemoglobin 8.8 g/dL (12.0-15.5) Hematocrit 26.4 % (36.0-47.0) Mean Corpuscular Volume 86 fL (79-100) Mean Corpuscular Hemoglobin 29 pg (25-35) Mean Corpuscular Hemoglobin Concent 33 g/dL (31-37) Red Cell Distribution Width 15.3 % (11.5-14.5) Platelet Count 355 x10^3/uL (140-400) Neutrophils (%) (Auto) 58 % (31-73) Lymphocytes (%) (Auto) 31 % (24-48) Monocytes (%) (Auto) 7 % (0-9) Eosinophils (%) (Auto) 2 % (0-3) Basophils (%) (Auto) 1 % (0-3) Neutrophils # (Auto) 3.8 x10^3/uL (1.8-7.7) Lymphocytes # (Auto) 2.1 x10^3/uL (1.0-4.8) Monocytes # (Auto) 0.5 x10^3/uL (0.0-1.1) Eosinophils # (Auto) 0.1 x10^3/uL (0.0-0.7) Basophils # (Auto) 0.1 x10^3/uL (0.0-0.2) Sodium Level 137 mmol/L (136-145) Potassium Level 3.9 mmol/L (3.5-5.1) Chloride Level 101 mmol/L (98-107) Carbon Dioxide Level 30 mmol/L (21-32) Anion Gap 6 (6-14) Blood Urea Nitrogen 8 mg/dL (7-20) Creatinine 1.1 mg/dL (0.6-1.0) Estimated GFR (Cockcroft-Gault) 53.7 Glucose Level 170 mg/dL (70-99) Calcium Level 8.8 mg/dL (8.5-10.1) Glucose (Fingerstick) 167 mg/dL (70-99) Objective: Assessment: 1. Hypoglycemia, present on admission, stable. 2. Nausea, vomiting, abdominal pain. Percutaneous endoscopic gastrostomy tube removal. 3. Generalized weakness, stable. 4. Pyuria. Urine culture multiple organisms, possible colonization. 5. Hyponatremia, hypokalemia, stable. 6. Acute kidney injury on chronic kidney disease, improving, likely dehydration. 7. Gluteal ulcer due to deep tracking, wound team plans for debridement today. 8. Diabetes mellitus 2. 9. COVID-19, recovered with complicated prolonged hospitalization as above. 10. Hypertension/hyperlipidemia. Plan: Plan of Care RECOMMENDATIONS: 1. Continue current treatment. Awaiting surgery later today 2. Offload. 3. Wound VAC/wound care as directed. 4. Monitor labs and cultures. 5. Continue supportive care. 6. Optimize nutrition. KAITLYNN CRAIG MD May 12, 2021 08:41
[2021-05-12] MEDS: ONDANSETRON PF 4 MG/2 ML VIAL. IVP PRN (09:42)
[2021-05-12] MEDS: HYDROmorphone 2 MG/ML VIAL IVP PRN ×2 (09:42→14:10)
--- NOTE | 2021-05-12 10:42 | PDOC ---
Date of Service: DATE: 05/12/21 TIME: 10:40 Subjective: Subjective: No n/v or abd pain. Objective: Objective: D/w nurse - went to have I&D yesterday but admitted she ate some grapes - rescheduled for today. Vital Signs: Vital Signs Date Time Temp Pulse Resp B/P (MAP) Pulse Ox O2 Delivery O2 Flow Rate FiO2 05/12/21 08:00 Room Air 05/12/21 07:00 98.6 109 20 181/89 (119) 96 98.6 05/11/21 20:36 98.0 Labs: Laboratory Tests Test 05/11/21 12:20 05/11/21 13:57 05/11/21 17:00 05/11/21 20:16 Glucose (Fingerstick) 189 mg/dL 138 mg/dL 295 mg/dL SARS-CoV-2 Antigen (Rapid) Negative Test 05/12/21 06:00 05/12/21 07:57 White Blood Count 6.5 x10^3/uL Red Blood Count 3.05 x10^6/uL Hemoglobin 8.8 g/dL Hematocrit 26.4 % Mean Corpuscular Volume 86 fL Mean Corpuscular Hemoglobin 29 pg Mean Corpuscular Hemoglobin Concent 33 g/dL Red Cell Distribution Width 15.3 % Platelet Count 355 x10^3/uL Neutrophils (%) (Auto) 58 % Lymphocytes (%) (Auto) 31 % Monocytes (%) (Auto) 7 % Eosinophils (%) (Auto) 2 % Basophils (%) (Auto) 1 % Neutrophils # (Auto) 3.8 x10^3/uL Lymphocytes # (Auto) 2.1 x10^3/uL Monocytes # (Auto) 0.5 x10^3/uL Eosinophils # (Auto) 0.1 x10^3/uL Basophils # (Auto) 0.1 x10^3/uL Sodium Level 137 mmol/L Potassium Level 3.9 mmol/L Chloride Level 101 mmol/L Carbon Dioxide Level 30 mmol/L Anion Gap 6 Blood Urea Nitrogen 8 mg/dL Creatinine 1.1 mg/dL Estimated GFR (Cockcroft-Gault) 53.7 Glucose Level 170 mg/dL Calcium Level 8.8 mg/dL Glucose (Fingerstick) 167 mg/dL PE: GEN: NAD LUNGS: CTAB HEART: tachycardic (mild) ABD: S/ND/NT NEURO/PSYCH: A & O 3 A/P: Left buttock/sacrum pressure ulcer w/ wound vac H/o COVID, , HTN, surgical G tube removed 05/08 Vomiting - resolved -- Will follow, observe for vomiting. Justicifation of Admission Dx: Justifications for Admission: Justification of Admission Dx: N/A JANELLE MONTENEGRO May 12, 2021 10:42
[2021-05-12] MEDS ORDERED: DEXAMETHASONE SOD PHOS 4 MG/ML VIAL ONE (11:10)
[2021-05-12] MEDS ORDERED: ONDANSETRON PF 4 MG/2 ML VIAL. ONE (11:10)
[2021-05-12] MEDS ORDERED: KETOROLAC 30 MG/ML VIAL. ONE (11:10)
[2021-05-12] MEDS ORDERED: LIDOCAINE 1% PF 5 ML VIAL. ONE (11:10)
[2021-05-12] MEDS ORDERED: PROPOFOL 10 MG/ML (20ML) VIAL. IV ONE (11:10)
[2021-05-12] MEDS ORDERED: fentaNYL PF VIAL 100 MCG/2 ML VIAL ONE ×2 (11:11→13:59)
[2021-05-12] MEDS ORDERED: MIDAZOLAM HCL/PF 2 MG/2 ML VIAL. ONE (11:11)
[2021-05-12] MEDS ORDERED: ROCURONIUM 50 MG/5 ML VIAL. ONE (11:12)
--- NOTE | 2021-05-12 11:13 | PDOC ---
[facility] [facility] PROGRESS NOTE Date of Service DOS: DATE: 05/12/21 TIME: 11:09 Chief Complaint Chief Complaint Hypoglycemia Hypotension N/V, abdominal pain Weakness Hyponatremia Hypokalemia BOB on CKD Stage 3 Gluteal ulcer DM2 COVID 19 recovered HTN HLD History of Present Illness History of Present Illness Ms Borges is a 46 year old female w/ PMHx DM2, HTN, HLD who presents to ED c/o worsening weakness, lightheadedness and diaphoresis with near syncope and hypoglycemia at her PCPs office. She had a prolonged stay due to COVID-19 from February 07 until May 01 where she required temporary hemodialysis tracheostomy and subsequent reversal PEG placement 03/27/2021. She did develop a bedsore during this time as well and since being home over the last 6 days has felt like she has "taken a step back". She would repeat PCPs office and despite taking minimal insulin her blood sugar was 60 in the office, given glucose there and instructed to go to ED. She was home with home health but has had difficulty getting up because of her l ightheadedness. In emergency room her blood sugar was 45. She remains alert and oriented. She states she is feeling dizzy, foggy headed and very weak. Chest radiograph with no acute abnormalities, WBC 17.6, Hb 10.6, platelets 379, NA 123, K3.4, BUN 25, CR 2.2, albumin 3.5, alk phos 126 otherwise LFTs within normal laboratory limits urinalysis with large leuk esterase Admitted for further care. 05/08: Glucose improved creatinine improved to 1.4. General surgery consulted removed PEG tube bedside local wound care performed. Brijesh home wound care and outpatient wound care as well as ambulation with walker at home She wants to renew her home health nurse advised to cut back on insulin to Lantus 15 units nightly sliding scale during the day of Tradjenta. Continue to stay hydrated with water. Addendum: After discussion with wound care there is wound undermining it would be more appropriate to stay inpatient general surgery consult for surgical debridement under anesthesia and wound VAC placement. We will continue IV antibiotics for now 05/09: Creatinine 1.1. Remains inpatient after wound reexamined she does have a consult with general surgery for wound debridement potentially on 05/11/2021. Glucose in the 200s will increase her Lantus. Working with therapy today to get around pretty well. No shortness of breath or chest pain 05/10: Creatinine 1.4. Lost IV access. Glucose climbed up, has been eating additional meals. Plan for continued wound vac and surgical wound assessment. 05/11 Patient seen and examined at bedside Chart reviewed Cr at 1.2 Glucose ~169 BP ~ 118/52 Planning for I+D (possibly today) Wound examined Patient has no other complaints at this time Discussed case with RN and KIRBY 05/12 Pt seen and examined Chart reviewed No acute overnight events noted Pt had episode of emesisx1 Cr at 1.1 today Glucose ~167 Bp ~ 164/91 Pt to have gluteal sore debrided today Pt has no other complaints at this time DWRN and KIRBY Vitals/I&O Vitals/I&O: Vital Signs Date Time Temp Pulse Resp B/P (MAP) Pulse Ox O2 Delivery O2 Flow Rate FiO2 05/12/21 08:00 Room Air 05/12/21 07:00 98.6 109 20 181/89 (119) 96 98.6 05/11/21 20:36 98.0 I & O 05/11/21 05/11/21 05/12/21 15:00 23:00 07:00 Intake Total 240 ml 0 ml Output Total 350 ml Balance 240 ml -350 ml Physical Exam General: Alert, Oriented X3, Cooperative Heart: Normal S1, Normal S2, Other (Slightly tachycardic ~101) Lungs: Crackles Abdomen: Soft, Other (g tube in place, some drainage around site ) Extremities: No clubbing, No cyanosis Skin: Other (Stage 3 4x10x0.3 ulcer) Labs Labs: Laboratory Tests Test 05/11/21 12:20 05/11/21 13:57 05/11/21 17:00 05/11/21 20:16 Glucose (Fingerstick) 189 mg/dL (70-99) 138 mg/dL (70-99) 295 mg/dL (70-99) SARS-CoV-2 Antigen (Rapid) Negative (NEGATIVE) Test 05/12/21 06:00 05/12/21 07:57 White Blood Count 6.5 x10^3/uL (4.0-11.0) Red Blood Count 3.05 x10^6/uL (3.50-5.40) Hemoglobin 8.8 g/dL (12.0-15.5) Hematocrit 26.4 % (36.0-47.0) Mean Corpuscular Volume 86 fL (79-100) Mean Corpuscular Hemoglobin 29 pg (25-35) Mean Corpuscular Hemoglobin Concent 33 g/dL (31-37) Red Cell Distribution Width 15.3 % (11.5-14.5) Platelet Count 355 x10^3/uL (140-400) Neutrophils (%) (Auto) 58 % (31-73) Lymphocytes (%) (Auto) 31 % (24-48) Monocytes (%) (Auto) 7 % (0-9) Eosinophils (%) (Auto) 2 % (0-3) Basophils (%) (Auto) 1 % (0-3) Neutrophils # (Auto) 3.8 x10^3/uL (1.8-7.7) Lymphocytes # (Auto) 2.1 x10^3/uL (1.0-4.8) Monocytes # (Auto) 0.5 x10^3/uL (0.0-1.1) Eosinophils # (Auto) 0.1 x10^3/uL (0.0-0.7) Basophils # (Auto) 0.1 x10^3/uL (0.0-0.2) Sodium Level 137 mmol/L (136-145) Potassium Level 3.9 mmol/L (3.5-5.1) Chloride Level 101 mmol/L (98-107) Carbon Dioxide Level 30 mmol/L (21-32) Anion Gap 6 (6-14) Blood Urea Nitrogen 8 mg/dL (7-20) Creatinine 1.1 mg/dL (0.6-1.0) Estimated GFR (Cockcroft-Gault) 53.7 Glucose Level 170 mg/dL (70-99) Calcium Level 8.8 mg/dL (8.5-10.1) Glucose (Fingerstick) 167 mg/dL (70-99) Review of Systems Review of Systems: ROS negative Assessment and Plan Assessmemt and Plan Problems Medical Problems: (1) Hypoglycemia Status: Acute (2) Hypotension Status: Acute (3) UTI (urinary tract infection) Status: Acute (4) Wound infection Status: Acute Hypoglycemia Hypotension N/V, abdominal pain Weakness Hyponatremia Hypokalemia BOB on CKD Stage 3 Gluteal ulcer DM2 COVID 19 recovered HTN HLD Plan WC, GI and Gen surg consulted, inputs appreciated Pt to have gluteal wound debrided by Gen Surg today Continue IV fluids Continue IV Abx Continue statin Restarted home meds as indicated Trend labs PEG removed CT AP negative for abcess/free air (fat stranding noted on PEG tube) CT Chest negative Hyponatremia currently resolved Hypokalemia currently resolved (likely from poor PO intake since discharge) Stage 3 Gluteal ulcer (wound care debrided and placed wound VAC on 05/08/2021. Due to deep tracking tentative plans for general surgery debridement on 05/11/2021 or sometime thereafter) COVID 19 recovered PT/OT ordered DVT Prophylaxis Full Code Discharge disposition pending subspecialist input Comment Review of Relevant I have reviewed the following items mazin (where applicable) has been applied. Medications: Current Medications Medications (Trade) Dose Ordered Sig/Pepe Route PRN Reason Start Time Stop Time Status Last Admin Dose Admin Ringer's Solution 1,000 ml @ 30 mls/hr Q24H IV 05/11/21 14:00 05/12/21 01:59 DC 05/11/21 17:10 Justifications for Admission General Conditions Other justification for admit: Hypotension, Hypoglycemia, Sacral Wound Other Justification DIANELYS BLACKMON III DO May 12, 2021 11:13
--- NOTE | 2021-05-12 11:14 | NUR ---
SW following. Discussed with RN, pt from home with spouse, room air, ada diet, COVID-19 negative. Pt having an I&D today. Pt has [facility]. SW will continue to follow.
[2021-05-12] MEDS ORDERED: NEOSTIGMINE METHYLSULFATE 5 MG/5 ML SYRINGE. ONE (11:19)
[2021-05-12] MEDS ORDERED: INSULIN LISPRO 100 UNIT/ML 3ML VIAL for OP,RR ONLY. SQ PRN (11:45)
--- NOTE | 2021-05-12 12:28 | PDOC ---
SURGICAL PROGRESS NOTE DATE: 05/12/21 TIME: 12:25 Subjective Pre-op Note 46 yo F with decubitus ulcer TO OR for debridement of sacral debridement of decub ulcer. R/R/B/A d/w pt. Risks, including, but not limited to: bleeding, infection, damage to surrounding structures, risk of anesthesia. She appears to understand, her questions are answered and she elects to proceed. Vital Signs Vital Signs Date Time Temp Pulse Resp B/P (MAP) Pulse Ox O2 Delivery O2 Flow Rate FiO2 05/12/21 11:35 98.6 104 15 157/73 96 Room Air 98.6 05/11/21 20:36 98.0 I&O Intake and Output 05/12/21 07:00 Intake Total 240 ml Output Total 350 ml Balance -110 ml Intake Oral 240 ml Output Urine Total 350 ml # Voids 3 Labs Laboratory Tests Test 05/10/21 17:13 05/10/21 20:05 05/11/21 06:30 05/11/21 08:13 Glucose (Fingerstick) 246 mg/dL (70-99) 260 mg/dL (70-99) 169 mg/dL (70-99) White Blood Count 7.3 x10^3/uL (4.0-11.0) Red Blood Count 3.03 x10^6/uL (3.50-5.40) Hemoglobin 8.8 g/dL (12.0-15.5) Hematocrit 25.9 % (36.0-47.0) Mean Corpuscular Volume 86 fL (79-100) Mean Corpuscular Hemoglobin 29 pg (25-35) Mean Corpuscular Hemoglobin Concent 34 g/dL (31-37) Red Cell Distribution Width 15.1 % (11.5-14.5) Platelet Count 294 x10^3/uL (140-400) Neutrophils (%) (Auto) 57 % (31-73) Lymphocytes (%) (Auto) 35 % (24-48) Monocytes (%) (Auto) 6 % (0-9) Eosinophils (%) (Auto) 1 % (0-3) Basophils (%) (Auto) 1 % (0-3) Neutrophils # (Auto) 4.1 x10^3/uL (1.8-7.7) Lymphocytes # (Auto) 2.5 x10^3/uL (1.0-4.8) Monocytes # (Auto) 0.4 x10^3/uL (0.0-1.1) Eosinophils # (Auto) 0.1 x10^3/uL (0.0-0.7) Basophils # (Auto) 0.1 x10^3/uL (0.0-0.2) Sodium Level 137 mmol/L (136-145) Potassium Level 4.2 mmol/L (3.5-5.1) Chloride Level 100 mmol/L (98-107) Carbon Dioxide Level 28 mmol/L (21-32) Anion Gap 9 (6-14) Blood Urea Nitrogen 8 mg/dL (7-20) Creatinine 1.2 mg/dL (0.6-1.0) Estimated GFR (Cockcroft-Gault) 48.6 Glucose Level 200 mg/dL (70-99) Calcium Level 8.9 mg/dL (8.5-10.1) Test 05/11/21 12:20 05/11/21 13:57 05/11/21 17:00 05/11/21 20:16 Glucose (Fingerstick) 189 mg/dL (70-99) 138 mg/dL (70-99) 295 mg/dL (70-99) SARS-CoV-2 Antigen (Rapid) Negative (NEGATIVE) Test 05/12/21 06:00 05/12/21 07:57 05/12/21 11:42 White Blood Count 6.5 x10^3/uL (4.0-11.0) Red Blood Count 3.05 x10^6/uL (3.50-5.40) Hemoglobin 8.8 g/dL (12.0-15.5) Hematocrit 26.4 % (36.0-47.0) Mean Corpuscular Volume 86 fL (79-100) Mean Corpuscular Hemoglobin 29 pg (25-35) Mean Corpuscular Hemoglobin Concent 33 g/dL (31-37) Red Cell Distribution Width 15.3 % (11.5-14.5) Platelet Count 355 x10^3/uL (140-400) Neutrophils (%) (Auto) 58 % (31-73) Lymphocytes (%) (Auto) 31 % (24-48) Monocytes (%) (Auto) 7 % (0-9) Eosinophils (%) (Auto) 2 % (0-3) Basophils (%) (Auto) 1 % (0-3) Neutrophils # (Auto) 3.8 x10^3/uL (1.8-7.7) Lymphocytes # (Auto) 2.1 x10^3/uL (1.0-4.8) Monocytes # (Auto) 0.5 x10^3/uL (0.0-1.1) Eosinophils # (Auto) 0.1 x10^3/uL (0.0-0.7) Basophils # (Auto) 0.1 x10^3/uL (0.0-0.2) Sodium Level 137 mmol/L (136-145) Potassium Level 3.9 mmol/L (3.5-5.1) Chloride Level 101 mmol/L (98-107) Carbon Dioxide Level 30 mmol/L (21-32) Anion Gap 6 (6-14) Blood Urea Nitrogen 8 mg/dL (7-20) Creatinine 1.1 mg/dL (0.6-1.0) Estimated GFR (Cockcroft-Gault) 53.7 Glucose Level 170 mg/dL (70-99) Calcium Level 8.8 mg/dL (8.5-10.1) Glucose (Fingerstick) 167 mg/dL (70-99) 191 mg/dL (70-99) Laboratory Tests Test 05/11/21 13:57 05/11/21 17:00 05/11/21 20:16 05/12/21 06:00 SARS-CoV-2 Antigen (Rapid) Negative (NEGATIVE) Glucose (Fingerstick) 138 mg/dL (70-99) 295 mg/dL (70-99) White Blood Count 6.5 x10^3/uL (4.0-11.0) Red Blood Count 3.05 x10^6/uL (3.50-5.40) Hemoglobin 8.8 g/dL (12.0-15.5) Hematocrit 26.4 % (36.0-47.0) Mean Corpuscular Volume 86 fL (79-100) Mean Corpuscular Hemoglobin 29 pg (25-35) Mean Corpuscular Hemoglobin Concent 33 g/dL (31-37) Red Cell Distribution Width 15.3 % (11.5-14.5) Platelet Count 355 x10^3/uL (140-400) Neutrophils (%) (Auto) 58 % (31-73) Lymphocytes (%) (Auto) 31 % (24-48) Monocytes (%) (Auto) 7 % (0-9) Eosinophils (%) (Auto) 2 % (0-3) Basophils (%) (Auto) 1 % (0-3) Neutrophils # (Auto) 3.8 x10^3/uL (1.8-7.7) Lymphocytes # (Auto) 2.1 x10^3/uL (1.0-4.8) Monocytes # (Auto) 0.5 x10^3/uL (0.0-1.1) Eosinophils # (Auto) 0.1 x10^3/uL (0.0-0.7) Basophils # (Auto) 0.1 x10^3/uL (0.0-0.2) Sodium Level 137 mmol/L (136-145) Potassium Level 3.9 mmol/L (3.5-5.1) Chloride Level 101 mmol/L (98-107) Carbon Dioxide Level 30 mmol/L (21-32) Anion Gap 6 (6-14) Blood Urea Nitrogen 8 mg/dL (7-20) Creatinine 1.1 mg/dL (0.6-1.0) Estimated GFR (Cockcroft-Gault) 53.7 Glucose Level 170 mg/dL (70-99) Calcium Level 8.8 mg/dL (8.5-10.1) Test 05/12/21 07:57 05/12/21 11:42 Glucose (Fingerstick) 167 mg/dL (70-99) 191 mg/dL (70-99) Problem List Problems Medical Problems: (1) Hypoglycemia Status: Acute (2) Hypotension Status: Acute (3) UTI (urinary tract infection) Status: Acute (4) Wound infection Status: Acute Justicifation of Admission Dx: Justifications for Admission: Justification of Admission Dx: N/A DANIEL ACHARYA MD May 12, 2021 12:28
[2021-05-12] MEDS ORDERED: MORPHINE SULFATE 2 MG/ML INJ. ONE (13:52)
[2021-05-12] MEDS ORDERED: IV NORMAL SALINE 1000ML BAG 1,000 ML IV SCH (14:15)
[2021-05-12] MEDS ORDERED: 0.9 % SODIUM CHLORIDE 10 ML DISP.SYRIN. IV PRN (14:15)
[2021-05-12] MEDS ORDERED: NALOXONE 0.4 MG/ML VIAL. IV PRN (14:15)
--- NOTE | 2021-05-12 14:24 | PDOC4 ---
OPERATIVE NOTE Date: Date: May 11, 2021 Pre-Op Diagnosis: Coccyx decubitus ulcer Post-Op Diagnosis: same Procedure Performed: Excisional debridement of skin, subcutaneous tissues overlying coccyx Surgeon: Maico Acharya Anesthesia Type: GETA Blood Loss: 50 Specimans Obtained: decub ulcer, cultures Findings: decubitus ulcer extending down, but not into bone Complications: none Operative Note: After obtaining informed consent, patient was taken to OR, induced under GETA and prepped in the usual fashion over coccyx in prone position. Cautery was used to perform excisional debridement of granulation tissue overlying necrotic pocket, down to put not involving bone. This was sent to pathology. Hemostasis was obtained with cautery. Good viable bone and other tissue noted. Wound was packed with iodoform gauze. Dressing placed. Patient tolerated procedure well and sent to PACU in stable condition. All counts correct. Wound class is 4. DANIEL ACHARYA MD May 12, 2021 14:24
[2021-05-12 15:00] VITALS: BP 152/87
[2021-05-12] MEDS: diphenhydrAMINE HCL 25 MG CAPSULE PO PRN (17:03)
[2021-05-12 19:00] VITALS: BP 158/85
[2021-05-12] MEDS: HYDROcodone/APAP 5/325MG 1 TAB TABLET PO PRN (20:53)
[2021-05-12] MEDS: cefTRIAXone IV Push 1 GM VIAL. IVP SCH (20:53)
[2021-05-12] MEDS: ZOLPIDEM 5 MG TABLET. PO PRN (20:55)
[2021-05-12] MEDS: INSULIN GLARGINE SYRINGE. SQ SCH (21:00)
[2021-05-12 23:00] VITALS: BP 162/85
[2021-05-13] MEDS: diphenhydrAMINE HCL 25 MG CAPSULE PO PRN (00:06)
[2021-05-13] MEDS: HYDROmorphone 2 MG/ML VIAL IVP PRN ×4 (00:06→14:24)
[2021-05-13 03:00] VITALS: BP 129/66
[2021-05-13] MEDS: HEPARIN for SUB-Q USE 5,000 UNIT/ML VIAL. SQ SCH ×2 (05:45→14:00)
[2021-05-13 05:53] LABS: BASO # 0.1 x10^3/uL (0.0-0.2); BASO % 1 % (0-3); EOS % 0 % (0-3); HEMATOCRIT 26.1 % (36.0-47.0); HEMOGLOBIN 8.7 g/dL (12.0-15.5); LYMPH % 29 % (24-48); MEAN CORPUSCULAR HEMOGLOBIN 29 pg (25-35); MEAN CORPUSCULAR HGB CONC 33 g/dL (31-37); MEAN CORPUSCULAR VOLUME 86 fL (79-100); MONO # 0.6 x10^3/uL (0.0-1.1); MONO % 6 % (0-9); NEUT # 6.5 x10^3/uL (1.8-7.7); NEUT % 63 % (31-73); PLATELET COUNT 326 x10^3/uL (140-400); RED BLOOD COUNT 3.02 x10^6/uL (3.50-5.40); RED CELL DISTRIBUTION WIDTH 15.1 % (11.5-14.5); WHITE BLOOD COUNT 10.3 x10^3/uL (4.0-11.0)
[2021-05-13 05:54] LABS: CALCIUM 9.1 mg/dL (8.5-10.1); CREATININE 1.4 mg/dL (0.6-1.0); GFR 40.7; POTASSIUM 4.2 mmol/L (3.5-5.1)
[2021-05-13 07:30] VITALS: BP 140/53
[2021-05-13] MEDS: INSULIN LISPRO 300 UNITS/3 ML VIAL. SQ SCH ×2 (08:00→12:59)
[2021-05-13] MEDS: ASCORBIC ACID 1,000 MG TABLET PO SCH (08:29)
[2021-05-13] MEDS: PANTOPRAZOLE 40 MG TABLET.DR. PO SCH (08:29)
[2021-05-13] MEDS: LINAGLIPTIN 5 MG TABLET PO SCH (08:29)
[2021-05-13] MEDS: LACTOBACILLUS RHAMNOSUS GG 1 CAPSULE. PO SCH (08:30)
[2021-05-13] MEDS: MULTIVITAMIN with MINERAL TABLET. PO SCH (08:31)
[2021-05-13] MEDS: HYDROcodone/APAP 5/325MG 1 TAB TABLET PO PRN ×2 (08:31→12:35)
--- NOTE | 2021-05-13 08:40 | PDOC ---
[facility] [facility] PROGRESS NOTE Date of Service DOS: DATE: 05/13/21 TIME: 08:39 Chief Complaint Chief Complaint Hypoglycemia Hypotension N/V, abdominal pain Weakness Hyponatremia Hypokalemia BOB on CKD Stage 3 Gluteal ulcer DM2 COVID 19 recovered HTN HLD History of Present Illness History of Present Illness Ms oBrges is a 46 year old female w/ PMHx DM2, HTN, HLD who presents to ED c/o worsening weakness, lightheadedness and diaphoresis with near syncope and hypoglycemia at her PCPs office. She had a prolonged stay due to COVID-19 from February 07 until May 01 where she required temporary hemodialysis tracheostomy and subsequent reversal PEG placement 03/27/2021. She did develop a bedsore during this time as well and since being home over the last 6 days has felt like she has "taken a step back". She would repeat PCPs office and despite taking minimal insulin her blood sugar was 60 in the office, given glucose there and instructed to go to ED. She was home with home health but has had difficulty getting up because of her l ightheadedness. In emergency room her blood sugar was 45. She remains alert and oriented. She states she is feeling dizzy, foggy headed and very weak. Chest radiograph with no acute abnormalities, WBC 17.6, Hb 10.6, platelets 379, NA 123, K3.4, BUN 25, CR 2.2, albumin 3.5, alk phos 126 otherwise LFTs within normal laboratory limits urinalysis with large leuk esterase Admitted for further care. 05/08: Glucose improved creatinine improved to 1.4. General surgery consulted removed PEG tube bedside local wound care performed. Brijesh home wound care and outpatient wound care as well as ambulation with walker at home She wants to renew her home health nurse advised to cut back on insulin to Lantus 15 units nightly sliding scale during the day of Tradjenta. Continue to stay hydrated with water. Addendum: After discussion with wound care there is wound undermining it would be more appropriate to stay inpatient general surgery consult for surgical debridement under anesthesia and wound VAC placement. We will continue IV antibiotics for now 05/09: Creatinine 1.1. Remains inpatient after wound reexamined she does have a consult with general surgery for wound debridement potentially on 05/11/2021. Glucose in the 200s will increase her Lantus. Working with therapy today to get around pretty well. No shortness of breath or chest pain 05/10: Creatinine 1.4. Lost IV access. Glucose climbed up, has been eating additional meals. Plan for continued wound vac and surgical wound assessment. 05/11 Patient seen and examined at bedside Chart reviewed Cr at 1.2 Glucose ~169 BP ~ 118/52 Planning for I+D (possibly today) Wound examined Patient has no other complaints at this time Discussed case with RN and KIRBY 05/12 Pt seen and examined Chart reviewed No acute overnight events noted Pt had episode of emesisx1 Cr at 1.1 today Glucose ~167 Bp ~ 164/91 Pt to have gluteal sore debrided today Pt has no other complaints at this time DWRN and KIRBY 05/13: Pt was seen, examined, and their chart reviewed. Pt reports that she is not in much pain as she was in yesterday. Pt is post-op day 1 for a gluteal ulcer debridement. Discussed with RN and KIRBY. Vitals/I&O Vitals/I&O: Vital Signs Date Time Temp Pulse Resp B/P (MAP) Pulse Ox O2 Delivery O2 Flow Rate FiO2 05/13/21 08:31 Room Air 05/13/21 07:30 98.3 91 20 140/53 (82) 94 98.3 05/12/21 23:00 5.0 I & O 05/12/21 05/12/21 05/13/21 15:00 23:00 07:00 Intake Total 800 ml 200 ml Output Total 5 ml 200 ml 200 ml Balance -5 ml 600 ml 0 ml Physical Exam Physical Exam: GENERAL: Alert, oriented x 3 female, looks much better than my evaluation last admission. HEENT: Normocephalic, atraumatic. Anicteric. No thrush. Oral mucosa moist. NECK: Supple, no JVD. Trach site dry dressing intact, clean. LUNGS: Clear bilaterally. No wheezing. HEART: S1, S2. No gallops or murmurs. ABDOMEN: Soft, obese. Bowel sounds present, nontender, nondistended. G-tube site removal looks clean. EXTREMITIES: No edema, no cyanosis. DERMATOLOGIC: Warm, dry, no generalized rash. BACK: Wound VAC present, not taken down. Wound pictures pending at this time, we will follow up on the same. General: Alert, Oriented X3, Cooperative Heart: Normal S1, Normal S2, Other (tachycardic) Lungs: Crackles Abdomen: Soft, Other (g tube in place, some drainage around site ) Extremities: No clubbing, No cyanosis Skin: Other (Stage 3 4x10x0.3 ulcer) Labs Labs: Laboratory Tests Test 05/12/21 11:42 05/12/21 14:17 05/12/21 16:37 05/13/21 03:10 Glucose (Fingerstick) 191 mg/dL (70-99) 108 mg/dL (70-99) 168 mg/dL (70-99) 205 mg/dL (70-99) Test 05/13/21 05:30 05/13/21 07:27 White Blood Count 10.3 x10^3/uL (4.0-11.0) Red Blood Count 3.02 x10^6/uL (3.50-5.40) Hemoglobin 8.7 g/dL (12.0-15.5) Hematocrit 26.1 % (36.0-47.0) Mean Corpuscular Volume 86 fL (79-100) Mean Corpuscular Hemoglobin 29 pg (25-35) Mean Corpuscular Hemoglobin Concent 33 g/dL (31-37) Red Cell Distribution Width 15.1 % (11.5-14.5) Platelet Count 326 x10^3/uL (140-400) Neutrophils (%) (Auto) 63 % (31-73) Lymphocytes (%) (Auto) 29 % (24-48) Monocytes (%) (Auto) 6 % (0-9) Eosinophils (%) (Auto) 0 % (0-3) Basophils (%) (Auto) 1 % (0-3) Neutrophils # (Auto) 6.5 x10^3/uL (1.8-7.7) Lymphocytes # (Auto) 3.0 x10^3/uL (1.0-4.8) Monocytes # (Auto) 0.6 x10^3/uL (0.0-1.1) Eosinophils # (Auto) 0.0 x10^3/uL (0.0-0.7) Basophils # (Auto) 0.1 x10^3/uL (0.0-0.2) Sodium Level 134 mmol/L (136-145) Potassium Level 4.2 mmol/L (3.5-5.1) Chloride Level 99 mmol/L (98-107) Carbon Dioxide Level 30 mmol/L (21-32) Anion Gap 5 (6-14) Blood Urea Nitrogen 10 mg/dL (7-20) Creatinine 1.4 mg/dL (0.6-1.0) Estimated GFR (Cockcroft-Gault) 40.7 Glucose Level 174 mg/dL (70-99) Calcium Level 9.1 mg/dL (8.5-10.1) Glucose (Fingerstick) 150 mg/dL (70-99) Review of Systems Review of Systems: ROS Negative Assessment and Plan Assessmemt and Plan Problems Medical Problems: (1) Hypoglycemia Status: Acute (2) Hypotension Status: Acute (3) UTI (urinary tract infection) Status: Acute (4) Wound infection Status: Acute Post-Op Day 1 Gluteal Ulcer Debridement Hypoglycemia Hypotension N/V, abdominal pain Weakness Hyponatremia Hypokalemia BOB on CKD Stage 3 Gluteal ulcer DM2 COVID 19 recovered HTN HLD Plan: - Continue IV Abx, IV fluids, and statin - Continue home meds as indicated - Continue to trend labs - Continue PTOT - DVT Prophylaxis - COVID-19 recovered Wound care Encourage p.o. intake Appreciate subspecialist input Full Code Discharge disposition pending subspecialist input Comment Review of Relevant I have reviewed the following items mazin (where applicable) has been applied. Medications: Current Medications Medications (Trade) Dose Ordered Sig/Pepe Route PRN Reason Start Time Stop Time Status Last Admin Dose Admin Insulin Human Lispro (HumaLOG VIAL for OP,RR ONLY) 0-10 units PRN Q1HR PRN SQ PER PROTOCOL 05/12/21 11:45 05/13/21 11:44 05/12/21 11:48 Acetaminophen/ Hydrocodone Bitart (Lortab 5/325) 1 tab PRN Q4HRS PRN PO MILD PAIN, 2ND CHOICE 05/12/21 14:15 05/13/21 08:31 Diphenhydramine HCl (Benadryl) 50 mg PRN Q8HRS PRN PO ITCHING 05/12/21 17:00 05/13/21 00:06 Justifications for Admission General Conditions Other justification for admit: Hypotension, Hypoglycemia, Sacral Wound Other Justification CASTLE,NIAL K III DO May 13, 2021 08:40
[2021-05-13] MEDS: DOXYCYCLINE HYCLATE 100 MG in IV DEXTROSE 5% 100ML 100 ML IV SCH (08:54)
[2021-05-13] MEDS: SODIUM HYPOCHLORITE 0.125% 473 ML BOTTLE. TP SCH (09:00)
--- NOTE | 2021-05-13 09:03 | PDOC ---
Infectious Disease Note Subjective: Subjective Patient without complaints. Postop pain is under control Vital Signs: Vital Signs Vital Signs Date Time Temp Pulse Resp B/P (MAP) Pulse Ox O2 Delivery O2 Flow Rate FiO2 05/13/21 08:31 Room Air 05/13/21 07:30 98.3 91 20 140/53 (82) 94 98.3 05/12/21 23:00 5.0 Physical Exam: PHYSICAL EXAM GENERAL: Alert, oriented x 3 female HEENT: Normocephalic, atraumatic. Anicteric. No thrush. Oral mucosa moist. NECK: Supple, no JVD. Trach site dry dressing intact, clean. LUNGS: Clear bilaterally. No wheezing. HEART: S1, S2. No gallops or murmurs. ABDOMEN: Soft, obese. Bowel sounds present, nontender, nondistended. G-tube site removal looks clean. EXTREMITIES: No edema, no cyanosis. DERMATOLOGIC: Warm, dry, no generalized rash. BACK: Wound dressing taken down. Large wound no bone exposure clean base Medications: Inpatient Meds: Medications reviewed. Labs: Lab Laboratory Tests Test 05/12/21 11:42 05/12/21 14:17 05/12/21 16:37 05/13/21 03:10 Glucose (Fingerstick) 191 mg/dL (70-99) 108 mg/dL (70-99) 168 mg/dL (70-99) 205 mg/dL (70-99) Test 05/13/21 05:30 05/13/21 07:27 White Blood Count 10.3 x10^3/uL (4.0-11.0) Red Blood Count 3.02 x10^6/uL (3.50-5.40) Hemoglobin 8.7 g/dL (12.0-15.5) Hematocrit 26.1 % (36.0-47.0) Mean Corpuscular Volume 86 fL (79-100) Mean Corpuscular Hemoglobin 29 pg (25-35) Mean Corpuscular Hemoglobin Concent 33 g/dL (31-37) Red Cell Distribution Width 15.1 % (11.5-14.5) Platelet Count 326 x10^3/uL (140-400) Neutrophils (%) (Auto) 63 % (31-73) Lymphocytes (%) (Auto) 29 % (24-48) Monocytes (%) (Auto) 6 % (0-9) Eosinophils (%) (Auto) 0 % (0-3) Basophils (%) (Auto) 1 % (0-3) Neutrophils # (Auto) 6.5 x10^3/uL (1.8-7.7) Lymphocytes # (Auto) 3.0 x10^3/uL (1.0-4.8) Monocytes # (Auto) 0.6 x10^3/uL (0.0-1.1) Eosinophils # (Auto) 0.0 x10^3/uL (0.0-0.7) Basophils # (Auto) 0.1 x10^3/uL (0.0-0.2) Sodium Level 134 mmol/L (136-145) Potassium Level 4.2 mmol/L (3.5-5.1) Chloride Level 99 mmol/L (98-107) Carbon Dioxide Level 30 mmol/L (21-32) Anion Gap 5 (6-14) Blood Urea Nitrogen 10 mg/dL (7-20) Creatinine 1.4 mg/dL (0.6-1.0) Estimated GFR (Cockcroft-Gault) 40.7 Glucose Level 174 mg/dL (70-99) Calcium Level 9.1 mg/dL (8.5-10.1) Glucose (Fingerstick) 150 mg/dL (70-99) Objective: Assessment: 1. Hypoglycemia, present on admission, stable. 2. Nausea, vomiting, abdominal pain. Percutaneous endoscopic gastrostomy tube removal. Resolved 3. Generalized weakness, stable. 4. Pyuria. Urine culture multiple organisms, possible colonization. 5. Hyponatremia, hypokalemia, stable. 6. Acute kidney injury on chronic kidney disease, improving, likely dehydration. 7. Gluteal ulcer due to deep tracking, status post I&D by Dr. Arzate, not down to the bone 8. Diabetes mellitus 2. 9. COVID-19, recovered with complicated prolonged hospitalization as above. 10. Hypertension/hyperlipidemia. Plan: Plan of Care Patient can be discharged home from ID standpoint DC antibiotics on discharge Emphasized strict offload. Wound VAC/wound care as directed. Continue supportive care. Optimize nutrition. Discussed with KAITLYNN CURIEL MD May 13, 2021 09:03
--- NOTE | 2021-05-13 09:06 | PDOC ---
SURGICAL PROGRESS NOTE DATE: 05/13/21 TIME: 09:04 Subjective Pt without c/o, some drainage through dressing Vital Signs Vital Signs Date Time Temp Pulse Resp B/P (MAP) Pulse Ox O2 Delivery O2 Flow Rate FiO2 05/13/21 08:31 Room Air 05/13/21 07:30 98.3 91 20 140/53 (82) 94 98.3 05/12/21 23:00 5.0 I&O Intake and Output 05/13/21 07:00 Intake Total 1000 ml Output Total 405 ml Balance 595 ml Intake Oral 400 ml IV Total 600 ml Output Urine Total 400 ml Estimated Blood Loss 5 ml # Voids 2 General: Alert, Oriented X3, Cooperative Abdomen: Soft Labs Laboratory Tests Test 05/11/21 12:20 05/11/21 13:57 05/11/21 17:00 05/11/21 20:16 Glucose (Fingerstick) 189 mg/dL (70-99) 138 mg/dL (70-99) 295 mg/dL (70-99) SARS-CoV-2 Antigen (Rapid) Negative (NEGATIVE) Test 05/12/21 06:00 05/12/21 07:57 05/12/21 11:42 05/12/21 14:17 White Blood Count 6.5 x10^3/uL (4.0-11.0) Red Blood Count 3.05 x10^6/uL (3.50-5.40) Hemoglobin 8.8 g/dL (12.0-15.5) Hematocrit 26.4 % (36.0-47.0) Mean Corpuscular Volume 86 fL (79-100) Mean Corpuscular Hemoglobin 29 pg (25-35) Mean Corpuscular Hemoglobin Concent 33 g/dL (31-37) Red Cell Distribution Width 15.3 % (11.5-14.5) Platelet Count 355 x10^3/uL (140-400) Neutrophils (%) (Auto) 58 % (31-73) Lymphocytes (%) (Auto) 31 % (24-48) Monocytes (%) (Auto) 7 % (0-9) Eosinophils (%) (Auto) 2 % (0-3) Basophils (%) (Auto) 1 % (0-3) Neutrophils # (Auto) 3.8 x10^3/uL (1.8-7.7) Lymphocytes # (Auto) 2.1 x10^3/uL (1.0-4.8) Monocytes # (Auto) 0.5 x10^3/uL (0.0-1.1) Eosinophils # (Auto) 0.1 x10^3/uL (0.0-0.7) Basophils # (Auto) 0.1 x10^3/uL (0.0-0.2) Sodium Level 137 mmol/L (136-145) Potassium Level 3.9 mmol/L (3.5-5.1) Chloride Level 101 mmol/L (98-107) Carbon Dioxide Level 30 mmol/L (21-32) Anion Gap 6 (6-14) Blood Urea Nitrogen 8 mg/dL (7-20) Creatinine 1.1 mg/dL (0.6-1.0) Estimated GFR (Cockcroft-Gault) 53.7 Glucose Level 170 mg/dL (70-99) Calcium Level 8.8 mg/dL (8.5-10.1) Glucose (Fingerstick) 167 mg/dL (70-99) 191 mg/dL (70-99) 108 mg/dL (70-99) Test 05/12/21 16:37 05/13/21 03:10 05/13/21 05:30 05/13/21 07:27 Glucose (Fingerstick) 168 mg/dL (70-99) 205 mg/dL (70-99) 150 mg/dL (70-99) White Blood Count 10.3 x10^3/uL (4.0-11.0) Red Blood Count 3.02 x10^6/uL (3.50-5.40) Hemoglobin 8.7 g/dL (12.0-15.5) Hematocrit 26.1 % (36.0-47.0) Mean Corpuscular Volume 86 fL (79-100) Mean Corpuscular Hemoglobin 29 pg (25-35) Mean Corpuscular Hemoglobin Concent 33 g/dL (31-37) Red Cell Distribution Width 15.1 % (11.5-14.5) Platelet Count 326 x10^3/uL (140-400) Neutrophils (%) (Auto) 63 % (31-73) Lymphocytes (%) (Auto) 29 % (24-48) Monocytes (%) (Auto) 6 % (0-9) Eosinophils (%) (Auto) 0 % (0-3) Basophils (%) (Auto) 1 % (0-3) Neutrophils # (Auto) 6.5 x10^3/uL (1.8-7.7) Lymphocytes # (Auto) 3.0 x10^3/uL (1.0-4.8) Monocytes # (Auto) 0.6 x10^3/uL (0.0-1.1) Eosinophils # (Auto) 0.0 x10^3/uL (0.0-0.7) Basophils # (Auto) 0.1 x10^3/uL (0.0-0.2) Sodium Level 134 mmol/L (136-145) Potassium Level 4.2 mmol/L (3.5-5.1) Chloride Level 99 mmol/L (98-107) Carbon Dioxide Level 30 mmol/L (21-32) Anion Gap 5 (6-14) Blood Urea Nitrogen 10 mg/dL (7-20) Creatinine 1.4 mg/dL (0.6-1.0) Estimated GFR (Cockcroft-Gault) 40.7 Glucose Level 174 mg/dL (70-99) Calcium Level 9.1 mg/dL (8.5-10.1) Laboratory Tests Test 05/12/21 11:42 05/12/21 14:17 05/12/21 16:37 05/13/21 03:10 Glucose (Fingerstick) 191 mg/dL (70-99) 108 mg/dL (70-99) 168 mg/dL (70-99) 205 mg/dL (70-99) Test 05/13/21 05:30 05/13/21 07:27 White Blood Count 10.3 x10^3/uL (4.0-11.0) Red Blood Count 3.02 x10^6/uL (3.50-5.40) Hemoglobin 8.7 g/dL (12.0-15.5) Hematocrit 26.1 % (36.0-47.0) Mean Corpuscular Volume 86 fL (79-100) Mean Corpuscular Hemoglobin 29 pg (25-35) Mean Corpuscular Hemoglobin Concent 33 g/dL (31-37) Red Cell Distribution Width 15.1 % (11.5-14.5) Platelet Count 326 x10^3/uL (140-400) Neutrophils (%) (Auto) 63 % (31-73) Lymphocytes (%) (Auto) 29 % (24-48) Monocytes (%) (Auto) 6 % (0-9) Eosinophils (%) (Auto) 0 % (0-3) Basophils (%) (Auto) 1 % (0-3) Neutrophils # (Auto) 6.5 x10^3/uL (1.8-7.7) Lymphocytes # (Auto) 3.0 x10^3/uL (1.0-4.8) Monocytes # (Auto) 0.6 x10^3/uL (0.0-1.1) Eosinophils # (Auto) 0.0 x10^3/uL (0.0-0.7) Basophils # (Auto) 0.1 x10^3/uL (0.0-0.2) Sodium Level 134 mmol/L (136-145) Potassium Level 4.2 mmol/L (3.5-5.1) Chloride Level 99 mmol/L (98-107) Carbon Dioxide Level 30 mmol/L (21-32) Anion Gap 5 (6-14) Blood Urea Nitrogen 10 mg/dL (7-20) Creatinine 1.4 mg/dL (0.6-1.0) Estimated GFR (Cockcroft-Gault) 40.7 Glucose Level 174 mg/dL (70-99) Calcium Level 9.1 mg/dL (8.5-10.1) Glucose (Fingerstick) 150 mg/dL (70-99) Problem List Problems Medical Problems: (1) Hypoglycemia Status: Acute (2) Hypotension Status: Acute (3) UTI (urinary tract infection) Status: Acute (4) Wound infection Status: Acute Assessment/Plan s/p debridement cont wound care, OK to start wound vac will sign off, but please call for questions. Ok to work towards d/c when cleared by others Justicifation of Admission Dx: Justifications for Admission: Justification of Admission Dx: N/A DANIEL ACHARYA MD May 13, 2021 09:06
--- NOTE | 2021-05-13 10:26 | PDOC ---
Date of Service: DATE: 05/13/21 TIME: 10:22 Subjective: Subjective: No vomiting, feeling well. Objective: Vital Signs: Vital Signs Date Time Temp Pulse Resp B/P (MAP) Pulse Ox O2 Delivery O2 Flow Rate FiO2 05/13/21 08:31 Room Air 05/13/21 07:30 98.3 91 20 140/53 (82) 94 98.3 05/12/21 23:00 5.0 Labs: Laboratory Tests Test 05/12/21 11:42 05/12/21 14:17 05/12/21 16:37 05/13/21 03:10 Glucose (Fingerstick) 191 mg/dL 108 mg/dL 168 mg/dL 205 mg/dL Test 05/13/21 05:30 05/13/21 07:27 White Blood Count 10.3 x10^3/uL Red Blood Count 3.02 x10^6/uL Hemoglobin 8.7 g/dL Hematocrit 26.1 % Mean Corpuscular Volume 86 fL Mean Corpuscular Hemoglobin 29 pg Mean Corpuscular Hemoglobin Concent 33 g/dL Red Cell Distribution Width 15.1 % Platelet Count 326 x10^3/uL Neutrophils (%) (Auto) 63 % Lymphocytes (%) (Auto) 29 % Monocytes (%) (Auto) 6 % Eosinophils (%) (Auto) 0 % Basophils (%) (Auto) 1 % Neutrophils # (Auto) 6.5 x10^3/uL Lymphocytes # (Auto) 3.0 x10^3/uL Monocytes # (Auto) 0.6 x10^3/uL Eosinophils # (Auto) 0.0 x10^3/uL Basophils # (Auto) 0.1 x10^3/uL Sodium Level 134 mmol/L Potassium Level 4.2 mmol/L Chloride Level 99 mmol/L Carbon Dioxide Level 30 mmol/L Anion Gap 5 Blood Urea Nitrogen 10 mg/dL Creatinine 1.4 mg/dL Estimated GFR (Cockcroft-Gault) 40.7 Glucose Level 174 mg/dL Calcium Level 9.1 mg/dL Glucose (Fingerstick) 150 mg/dL ORDERED: ANAER/AEROB/GS COMMENTS: SACRAL ULCER SWAB GRAM STAIN Final Final NO ORGANISMS SEEN. SQUAMOUS EPI CELL:NONE SEEN PMN (WBCs):NONE SEEN Unless otherwise specified, Testing Performed by: [address] [address] For Inquires, the Physician may contact the Microbiology department at [phone] ANAEROBIC-AEROBIC CULTURE PENDING PE: GEN: NAD LUNGS: CTAB HEART: RRR ABD: S/ND/NT NEURO/PSYCH: A & O 3 A/P: Coccyx decub s/p debridement 05/12/21 H/o COVID, surgical G tube removed 05/08 Vomiting - resolved -- Improved GI-kidd. Dc per primary. Justicifation of Admission Dx: Justifications for Admission: Justification of Admission Dx: N/A JANELLE MONTENEGRO May 13, 2021 10:26
[2021-05-13 10:52] VITALS: BP 136/48
--- NOTE | 2021-05-13 12:21 | DS ---
DATE OF DISCHARGE: 05/13/2021 ADMITTING DIAGNOSES: Hypoglycemia, orthostasis, UTI. DISCHARGE DIAGNOSES: Resolving hypoglycemia, resolving hyperglycemia as well. Postop day #1, coccygeal wound debridement, resolving recent respiratory failure, resolving recent COVID-19, chronic kidney disease, diabetes, hypertension, hyperlipidemia. CONSULTS: General Surgery and Infectious Disease. HOSPITAL COURSE: The patient is a pleasant, middle-aged female who had been in the hospital for quite some time after recovering from COVID-19. We got her home. She was doing okay, but then became quite weak. She was noted to be hypoglycemic. She was admitted. We obtained good glycemic control. We did have to consult General Surgery because of some wounds on her coccyx, Infectious Disease also ordered IV antibiotics. Over the past few days, she has done better. Today, I saw and examined her. She is postop day #1 from debridement. Infectious Disease is okay with her going without antibiotics at this point. General Surgery is also okay with her going. We are going to discharge with close outpatient followup. DISPOSITION: Home. ACTIVITY: As tolerated. DIET: 1800 calorie ADA. DISCHARGE MEDICATIONS: Hydroxyzine 10 t.i.d., Tradjenta 5 daily, Ambien 5 at bedtime, p.r.n. albuterol, atorvastatin 40 a day, fluoxetine 20 a day, lisinopril 5 a day, p.r.n. Zofran, Protonix 40 a day and insulin. She is on a sliding scale plus Lantus insulin 15 units at bedtime. TOTAL TIME: [address]: Mague TID: [id number]
[2021-05-13] MEDS ORDERED: OXYC1TAB22 PO (12:27)
--- NOTE | 2021-05-13 14:30 | NUR ---
Wound/Ostomy Care Wound Type/Assessment: Wound care follow up for left buttock/sacrum PU, s/p surgical debridement on 05/[address] Mills. Dressing removed, wound cleaned, measured and photographed for discharge. Wound bed is beefy red, fat layer and muscle present, bone with tissue covering, but minimally covered. Cauterized tissue present, periwound pink, defined wound edges. Treatment Recommendations/Plan: Venecia wound vac has not been approved at this time. Wound bed packed with Hydrofera blue rope, covered with Drawtex for drainage, then covered with Aquacel foam. Pt to fill out Venecia application, this RN completed [employer] vac application. Pt will f/u in Outpt Dept on Tuesday, anticipate applying wound vac to wound at that time. Education provided: Pt educated on PU healing and prevention, advised to keep off her buttocks as much as possible, pt able to turn with minimal assistance. Pt encouraged to take w/c cushion home with her. Offloading surface/device: P500 bed, purple wedge, pillows Recommended Referrals/Tests: n/a Discharge Recommendations for dressings: Pt will f/u on 05/15/21 at 1400 in the Outpatient Dept.
[2021-05-13 15:07] VITALS: BP 160/80
--- NOTE | 2021-05-13 15:44 | NUR ---
Patient discharge education given, telemonitor and Picc line discontinued by this RN. Patient escorted out by Farideh POND to main entrance with family in wheelchair, belongings and family.
--- NOTE | 2021-05-15 13:04 | PATHOLOGY ---
[facility] Accession Number: [id number] . 01 Material submitted: . sacrum - SACRAL ULCER TISSUE . 01 Clinical history: . SACRAL PRESSURE ULCER/DEBRIDEMENT . 02 Diagnosis: Skin and subcutaneous tissue, sacral ulcer, debridement: - Skin with ulceration, granulation tissue, abscess formation, and fibrosis. - Negative for malignancy. (SCA/db; 05/14/2021) LBQ 05/14/2021 1319 Local . 02 Electronically signed: . Ho Tadeo DO, Pathologist NPI- [id number] . 01 Gross description: . The specimen is received in formalin, labeled "Marissa Borges, sacral ulcer tissue". Received is an irregular segment of pale dominguez to red-brown skin with attached underlying fibroadipose tissue measuring 6.7 x 3.0 x 4.1 cm in greatest dimensions. The specimen is submitted representatively in cassette A1. (CAA; 05/13/2021) QA/[facility] 05/13/2021 0934 Local . 02 Pathologist provided ICD-10: L89.159 . 02 CPT . 289376 Specimen Comment: A courtesy copy of this report has been sent to [phone], [phone] Specimen Comment: [id number], , Specimen Comment: Report sent to ,DR LOVE,DR [place] AND DR ALCARAZ Performed at: 01 [facility] [address], [place] [id number] MD Paul Meyer MD Phone: [phone] Performed at: 02 [facility] [address] [id number] MD Amari Valles MD Phone: [phone]
== END 2021-05-13 15:44 | disposition home or self-care (01) | DRG 622 ==
LOC: ER 18:54 → 5 NORTH 21:00
PROVIDERS: ADMIT Family Medicine; ATTEND Family Medicine
PROC: 02HV33Z Insertion of Infusion Device into Superior Vena Cava, Percutaneous Approach (ICD-10-PCS; 2021-05-07)
PROC: 0JB70ZZ Excision of Back Subcutaneous Tissue and Fascia, Open Approach (ICD-10-PCS; principal; 2021-05-12 12:30)
DX: E11.649 Type 2 diabetes mellitus with hypoglycemia without coma (principal); L89.324 Pressure ulcer of left buttock, stage 4; E87.1 Hypo-osmolality and hyponatremia; N39.0 Urinary tract infection, site not specified; Z43.1 Encounter for attention to gastrostomy; E11.65 Type 2 diabetes mellitus with hyperglycemia; D64.9 Anemia, unspecified; E11.22 Type 2 diabetes mellitus with diabetic chronic kidney disease; E78.00 Pure hypercholesterolemia, unspecified; E78.5 Hyperlipidemia, unspecified; E86.0 Dehydration; E86.1 Hypovolemia; E87.6 Hypokalemia; I12.9 Hypertensive chronic kidney disease with stage 1 through stage 4 chronic kidney disease, or unspecified chronic kidney disease; N18.9 Chronic kidney disease, unspecified; Z79.4 Long term (current) use of insulin; Z79.52 Long term (current) use of systemic steroids; Z86.16 Personal history of COVID-19; Z90.710 Acquired absence of both cervix and uterus
CPT/HCPCS: 36415; 36569; 71045; 74176; 80048; 80053; 81001; 82533; 82962; 83605; 83735; 83880; 84443; 84484; 85007; 85025; 86140; 87040; 87071; 87075; 87077; 87086; 87426; 88304; 90471; 90686; 93005; 96361; 96372; 96374; A4930; J0696; J0780; J1100; J1170; J1200; J1610; J1644; J1815; J1885; J2060; J2250; J2270; J2405; J2704; J2710; J3010; J3490; J7030; J7060; J7120; P9041; 97116-GP; 97530-GP; 97535-GO; 99285-25; G0378; Q0163

== ENCOUNTER 2021-05-14 15:02 | Inpatient (IN) | payer SELFPAY ==
[~2021-05-14] VITALS: Ht 160 cm; Wt 84.4 kg
[~2021-05-14 15:02] MED LIST changes: +CEFP200T PO; +HYDR10TA2 PO; +LINA5TAB PO; +OXYC1TAB22 PO; +ZOLP5TAB PO
[2021-05-14] MEDS ORDERED: IV NORMAL SALINE 1000ML BAG 1,000 ML IV SCH (15:30)
[2021-05-14] MEDS ORDERED: PROCHLORPERAZINE 10 MG/2 ML VIAL. IVP ONE (15:30)
--- NOTE | 2021-05-14 15:52 | PHYS DOC ---
Past Medical History Past Medical History: Diabetes-Type II, High Cholesterol, Hypertension (WICHO WASHINGTON NCQA SPECIALIST) Past Surgical History: Cholecystectomy, Hysterectomy, Other Additional Past Surgical Histo: breast augmentation, abdominoplasty, right knee, LT CTR (WICHO WASHINGTON NCQA SPECIALIST) Smoking Status: Never Smoker Alcohol Use: Occasionally Drug Use: None (WICHO WASHINGTON NCQA SPECIALIST) General Adult EDM: Chief Complaint: NAUSEA/VOMITING/DIARRHEA HPI: HPI: Patient is a 46 year old female who presents with patient discharged yesterday after being for hypoglycemia and hypotension and a coccyx wound. Patient had surgery on the wound and was discharged yesterday. Patient is back today stating that she cannot keep down any food and she has been vomiting. She denies abdominal pain, fever, chest pain, shortness of air, headache, dizziness, syncope, focal weakness. Her gastric tube was also removed. I did speak to Dr. Contreras as he was the one that also discharged her. She denies any pain at this time. Patient has a history of diabetes, hypertension, anxiety, high cholesterol, asthma, respiratory failure, Covid, fibroids, hypoglycemia and hypotension, coccyx decubitus ulcer. (WICHO WASHINGTON NCQA SPECIALIST) Review of Systems: Review of Systems: Constitutional: Denies fever or chills. [] Eyes: Denies change in visual acuity. [] HENT: Denies nasal congestion or sore throat. [] Respiratory: Denies cough or shortness of breath. [] Cardiovascular: Denies chest pain or edema. [] GI: Denies abdominal pain, +nausea, +vomiting, denies bloody stools or diarrhea. [] : Denies dysuria. [] Musculoskeletal: Denies back pain or joint pain. [] Integument: Denies rash. [] Neurologic: Denies headache, focal weakness or sensory changes. [] Endocrine: Denies polyuria or polydipsia. [] Lymphatic: Denies swollen glands. [] Psychiatric: Denies depression or anxiety. [] (WICHO WASHINGTON NCQA SPECIALIST) Heart Score: C/O Chest Pain: No (WICHO WASHINGTON NCQA SPECIALIST) Current Medications: Current Medications Medications (Trade) Dose Ordered Sig/Pepe Start Time Stop Time Status Last Admin Dose Admin Prochlorperazine Edisylate (Compazine) 5 mg 1X ONCE 05/14/21 15:30 05/14/21 15:31 DC Sodium Chloride 1,000 ml @ 1,000 mls/hr Q1H 05/14/21 15:30 05/14/21 16:29 (WICHO WASHINGTON APRN) Allergies: Allergies: Allergies Coded Allergies Type Severity Reaction Last Updated Verified venom-honey bee Allergy Severe Shortness of Air 03/23/21 Yes oxycodone Allergy Intermediate Itching 03/23/21 No shellfish derived Allergy Intermediate Itching 03/23/21 No tree nut Allergy Unknown 05/06/21 Yes (WICHO WASHINGTON APRN) Physical Exam: PE: Constitutional: Well developed, well nourished, no acute distress, non-toxic appearance. [] HENT: Normocephalic, atraumatic, bilateral external ears normal, oropharynx moist, no oral exudates, nose normal. [] Eyes: PERRLA, EOMI, conjunctiva normal, no discharge. [] Neck: Normal range of motion, no tenderness, supple, no stridor. [] Cardiovascular:Heart rate regular rhythm, no murmur [] Lungs & Thorax: Bilateral breath sounds clear to auscultation [] Abdomen: Bowel sounds normal, soft, epigastric tenderness, no masses, no pulsatile masses. [] Skin: Warm, dry, no erythema, no rash. [] Back: No tenderness, no CVA tenderness. [] Extremities: No tenderness, no cyanosis, no clubbing, ROM intact, no edema. [] Neurologic: Alert and oriented X 3, normal motor function, normal sensory function, no focal deficits noted. [] Psychologic: Affect normal, judgement normal, mood normal. [] (WICHO WASHINGTON APRN) EKG: EK and read by Dr. Sanchez as sinus tachycardia but no STEMI. (WICHO WASHINGTON APRN) Radiology/Procedures: Radiology/Procedures: [] Impression: [facility] [address] [place] [address] IMAGING REPORT Signed PATIENT: ARIADNA BANKS ACCOUNT: [id number] : 1975 LOCATION: ER AGE: 46 SEX: F EXAM STATUS: REG ER ORD. PHYSICIAN: WICHO WASHINGTON APRN REASON: vomiting PROCEDURE: ACUTE ABDOMEN SERIES EXAM: XR ABDOMEN COMP ACUTE 05/14/2021 3:36 PM CLINICAL INDICATION: Vomiting COMPARISON: CT abdomen pelvis 05/07/2021 an chest radiograph 05/10/2021 TECHNIQUE: AP supine and upright view of the abdomen and upright view of the chest FINDINGS: Bowel gas pattern is nonspecific and nonobstructive. Normal volume of stool. There are cholecystectomy clips noted. No abnormal calcifications. No acute osseous abnormality. Heart is normal in size. The left PICC has been removed. Lungs are well-expanded and clear. No pleural effusion or pneumothorax. There is mild elevation of the right hemidiaphragm. IMPRESSION: No acute abnormality. Electronically signed by: Jennifer Johnson MD (05/14/2021 4:44 PM) [id number] DICTATED and SIGNED BY: JENNIFER JOHNSON MD DATE: 05/14/21 [id number] (WICHO WASHINGTON APRN) Course & Med Decision Making: Course & Med Decision Making Pertinent Labs and Imaging studies reviewed. (See chart for details) See HPI. Alert and oriented x4. Ambulatory steady gait. Speaks in full clear sentences. Abdomen is slightly tender at epigastric area. Patient is vomiting bile. Patient states she has been taking the Zofran as it is prescribed and is not helping. Skin pink warm and dry. Tachycardic at 120. Patient received fluids and Compazine. This seemed to help her vomiting. Dr. Contreras's been in to speak with the patient. He states to put an order for a PICC line placement in the morning. Several nursing staff and lab staff have been in the room trying to get a blood draw for the patient. Patient is a hard stick. I let Dr. Contreras know that we do not have blood work on her at this time. [] (WICHO WASHINGTON APRN) Course & Med Decision Making I have participated in the care of this patient and I have reviewed and agree with all pertinent clinical information above including history, exam, and recommendations. Lizett Sanchez DO (LIZETT SANCHEZ DO) Sven Disclaimer: Dragon Disclaimer: This electronic medical record was generated, in whole or in part, using a voice recognition dictation system. (WICHO WASHINGTON APRN) Departure Departure Impression: Primary Impression: Nausea & vomiting Qualified Codes: R11.2 - Nausea with vomiting, unspecified Disposition: 09 ADMITTED INPATIENT Admitting Physician: CHU (WICHO WASHINGTON APRN) Condition: STABLE Referrals: BLANE LOVE MD (PCP) WICHO WASHINGTON APRN May 14, 2021 15:52 LIZETT SANCHEZ DO May 15, 2021 07:29
--- NOTE | 2021-05-14 15:58 | EKG ---
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
[2021-05-14] MEDS ORDERED: fentaNYL PF VIAL 100 MCG/2 ML VIAL IVP ONE (16:00)
[2021-05-14] MEDS ORDERED: IV DEXTROSE 5%-LACT RINGERS 1,000 ML IV ONE (16:00)
--- NOTE | 2021-05-14 16:47 | RAD ---
EXAM: XR ABDOMEN COMP ACUTE 05/14/2021 3:36 PM CLINICAL INDICATION: Vomiting COMPARISON: CT abdomen pelvis 05/07/2021 an chest radiograph 05/10/2021 TECHNIQUE: AP supine and upright view of the abdomen and upright view of the chest FINDINGS: Bowel gas pattern is nonspecific and nonobstructive. Normal volume of stool. There are cho lecystectomy clips noted. No abnormal calcifications. No acute osseous abnormality. Heart is normal i n size. The left PICC has been removed. Lungs are well-expanded and clear. No pleural effusion or pne umothorax. There is mild elevation of the right hemidiaphragm. IMPRESSION: No acute abnormality. Electronically signed by: Jennifer Johnson MD (05/14/2021 4:44 PM) [id number]
--- NOTE | 2021-05-14 16:54 | HP ---
DATE OF SERVICE: 05/14/2021 ADMIT DATE: 05/14/2021 CHIEF COMPLAINT: Nausea, vomiting. HISTORY OF PRESENT ILLNESS: The patient is a pleasant, middle-aged female who survived COVID-19 after being on the ventilator several months ago. She also at that time had to have a trach and was dialyzed and had a temporary PEG tube. Now she has been doing better. She has been admitted a couple times to the hospital in the past few weeks. Most notably, I just discharged her yesterday after being admitted for resolving hypoglycemia and a coccygeal wound. She went for a debridement just a couple days ago. Yesterday when I saw her, she was doing well, wanted to go home. Apparently last night, she started developing nausea and vomiting, it was intractable. She tried taking the Zofran, I sent her home with, but that did not seem to help. I discussed the case with ER physician. We are going to go ahead and admit the patient with consultation to GI again. PAST MEDICAL HISTORY: Respiratory failure (she was on the vent just a couple months ago), COVID-19, recent tracheostomy that has been decannulated, dialysis x 1, weakness, resolving hyponatremia, history of hypokalemia, chronic kidney disease, stage 3 gluteal ulcer that was just debrided a couple days ago, diabetes, hypertension, hyperlipidemia, history of PEG placement, breast augmentation, abdominoplasty, right knee surgery, cholecystectomy, overweight. ALLERGIES: OXYCODONE, SHELLFISH, TREE NUTS, BEE VENOM. FAMILY HISTORY: Hypertension and coronary artery disease. SOCIAL HISTORY: She does not drink, smoke or take drugs. MEDICATIONS: Reviewed, please refer to the MRAD. REVIEW OF SYSTEMS: GENERAL: No history of weight change, weakness or fevers. SKIN: No bruising, hair changes or rashes. EYES: No blurred, double or loss of vision. NOSE AND THROAT: No history of nosebleeds, hoarseness or sore throat. HEART: No history of palpitations, chest pain or shortness of breath on exertion. LUNGS: Denies cough, hemoptysis, wheezing or shortness of breath. GASTROINTESTINAL: She complains of nausea, vomiting. GENITOURINARY: No history of frequency, urgency, hesitancy or nocturia. NEUROLOGIC: Denies history of numbness, tingling, tremor or weakness. PSYCHIATRIC: No history of panic, anxiety or depression. ENDOCRINE: No history of heat or cold intolerance, polyuria or polydipsia. EXTREMITIES: Denies muscle weakness, joint pain, pain on walking or stiffness. PHYSICAL EXAMINATION: VITALS: Within normal limits and are stable. GENERAL: No apparent distress. Alert and oriented. HEENT: Normal cephalic atraumatic, external auditory canals are patent. EYES: Extraocular muscles are intact, pupils are equally round and reactive to light and accommodation. MUSCULOSKELETAL: Well developed, well nourished, good range of motion. ENDOCRINE: No thyromegaly was palpated. LYMPHATICS: No cervical chain or axillary nodes were noted. HEMATOPOIETIC: No bruising. NECK: Supple, no JVD, no thyromegaly was noted. LUNGS: Clear to auscultation in all lung mercer without rhonchi or wheezing. HEART: RRR, S1, S2 present. Peripheral pulses intact, no obvious murmurs were noted. ABDOMEN: She has decreased bowel sounds with some slight tenderness and she is actively vomiting while in the ER room 18. EXTREMITIES: Without any cyanosis, clubbing, or edema. Pedal pulses intact, Homans sign is negative. NEUROLOGIC: Normal speech, normal tone. A and O x 3, moves all extremities, no obvious focal deficits. PSYCHIATRIC: Normal affect, normal mood. Stable. SKIN: No ulcerations or rashes, good skin turgor, no jaundice. VASCULAR: Good capillary refill, neurovascular bundle appears to be intact. LABORATORY DATA: Pending. ASSESSMENT AND PLAN: Intractable nausea and vomiting. The patient has been admitted. We will consult GI. IV fluids, p.r.n. Zofran, home meds. Deep venous thrombosis prophylaxis. Full code. Cardiac monitoring. LUIS/CHELO DR: LUIS/riley TID: [id number]
[2021-05-14] MEDS ORDERED: ACETAMINOPHEN 325 MG TABLET. PO PRN (17:00)
[2021-05-14] MEDS ORDERED: IV NORMAL SALINE 1000ML BAG 1,000 ML IV ONE (17:00)
[2021-05-14 19:15] VITALS: BP 172/90
[2021-05-14] MEDS ORDERED: PROCHLORPERAZINE 10 MG/2 ML VIAL. IV PRN (20:45)
[2021-05-14] MEDS: IV DEXTROSE 5%-LACT RINGERS 1,000 ML IV SCH (20:45)
[2021-05-14] MEDS: ONDANSETRON PF 4 MG/2 ML VIAL. IVP PRN (20:59)
[2021-05-14] MEDS: HYDROmorphone 2 MG/ML VIAL IVP PRN (20:59)
[2021-05-14 21:40] LABS: BASO # 0.1 x10^3/uL (0.0-0.2); BASO % 1 % (0-3); EOS % 0 % (0-3); HEMATOCRIT 27.5 % (36.0-47.0); HEMOGLOBIN 9.4 g/dL (12.0-15.5); LYMPH # 2.3 x10^3/uL (1.0-4.8); LYMPH % 19 % (24-48); MEAN CORPUSCULAR HEMOGLOBIN 30 pg (25-35); MEAN CORPUSCULAR HGB CONC 34 g/dL (31-37); MEAN CORPUSCULAR VOLUME 87 fL (79-100); MONO # 0.6 x10^3/uL (0.0-1.1); MONO % 5 % (0-9); NEUT # 9.2 x10^3/uL (1.8-7.7); NEUT % 76 % (31-73); PLATELET COUNT 432 x10^3/uL (140-400); RED BLOOD COUNT 3.18 x10^6/uL (3.50-5.40); RED CELL DISTRIBUTION WIDTH 15.4 % (11.5-14.5); WHITE BLOOD COUNT 12.2 x10^3/uL (4.0-11.0)
[2021-05-14 21:49] LABS: CREATININE 1.3 mg/dL (0.6-1.0); GFR 44.3; POTASSIUM 3.7 mmol/L (3.5-5.1)
[2021-05-14 21:55] LABS: ALBUMIN 3.9 g/dL (3.4-5.0); TOTAL BILIRUBIN 0.5 mg/dL (0.2-1.0)
[2021-05-14 23:00] VITALS: BP 149/81
[2021-05-14 23:41] LABS: BILIRUBIN,URINE NEGATIVE (NEG); CLARITY,URINE CLEAR; COLOR,URINE YELLOW; NITRITE,URINE NEGATIVE (NEG); PH,URINE 6.5 (<5.0-8.0); PROTEIN,URINE 100 mg/dL (NEG-TRACE); UROBILINOGEN,URINE 0.2 mg/dL (0.2 mg/dL)
[2021-05-14 23:49] LABS: BACTERIA,URINE 0 /HPF (0-FEW); RBC,URINE 0 /HPF (0-2); WBC,URINE RARE /HPF (0-4)
[2021-05-15] MEDS: diphenhydrAMINE 50 MG/ML VIAL IVP PRN ×2 (00:36→20:02)
[2021-05-15] MEDS: HYDROmorphone 2 MG/ML VIAL IVP PRN ×6 (00:41→23:18)
[2021-05-15 03:00] VITALS: BP 135/75
[2021-05-15 07:00] VITALS: BP 116/54
[2021-05-15] MEDS: IV DEXTROSE 5%-LACT RINGERS 1,000 ML IV SCH ×2 (07:56→23:45)
[2021-05-15] MEDS ORDERED: DEXTROSE 50% 25 GM / 50ML DISP.SYRIN. IV PRN (08:15)
--- NOTE | 2021-05-15 09:51 | PDOC ---
Date of Service: DATE: 05/15/21 TIME: 09:51 Subjective: Subjective: Vomiting recurred the night of discharge to home after eating chicken noodle soup. Vomiting occurs about 10 min after eating/drinking, can be bilious. No abd pain. No heartburn/reflux/bloating. No diarrhea or constipation. Some dizziness when standing for too long. Says she was told to stop BP meds due to hypotension. Unremarkable EGD and GES here. Recent CT unrevealing. G tube out. S/p deanna. H/o vomiting "associated with pain" a couple years ago - says workup was unrevealing and symptoms just got better. Vomited Zofran pills at home, thinks Phenergan suppositories help some but really thinks having everything given IV is the gordon. Hypertensive in ER. Objective: Objective: From DC summary 05/13: DISCHARGE MEDICATIONS: Hydroxyzine 10 t.i.d., Tradjenta 5 daily, Ambien 5 at bedtime, p.r.n. albuterol, atorvastatin 40 a day, fluoxetine 20 a day, lisin opril 5 a day, p.r.n. Zofran, Protonix 40 a day and insulin. She is on a sliding scale plus Lantus insulin 15 units at bedtime. Vital Signs: Vital Signs Date Time Temp Pulse Resp B/P (MAP) Pulse Ox O2 Delivery O2 Flow Rate FiO2 05/15/21 07:00 98.1 92 18 116/54 (74) 93 Room Air 98.1 Labs: Laboratory Tests Test 05/14/21 15:54 05/14/21 19:22 05/15/21 07:21 Glucose (Fingerstick) 346 mg/dL (70-99) 297 mg/dL (70-99) 244 mg/dL (70-99) Imaging: AAS 05/14 IMPRESSION: No acute abnormality. PE: GEN: NAD LUNGS: CTAB HEART: RRR ABD: NABS, S/ND/NT EXTREMITY: No edema SKIN: No rashes, no jaundice NEURO/PSYCH: A & O 3 A/P: Recurrent vomiting H/o COVID, decub -- Empiric PPI - IV for now. Check head CT. Okay to try diet. Justicifation of Admission Dx: Justifications for Admission: Justification of Admission Dx: N/A JANELLE MONTENEGRO May 15, 2021 09:51
--- NOTE | 2021-05-15 10:45 | NUR ---
Allergies and reactions Oxycodone,Shellfish derived,Tree nut,venom-honey bee INR NA BUN 15 Cr 1.3 Platelets 432 Blood culture done Y blood culture results Negative Order Verified Y Consent signed Y Previous PICC placement Y Past Medical/Surgical history and current diagnosis reviewed Y Patient Medical /Surgical History Related to PICC line placement History of acute/chronic renal failure Infectious Disease consult Renal consult Special considerations for PICC line placement Infections PICC placement indication extermination inspector antibiotic usage, Multiple/ Frequent blood draws, Maggy Quintero RN name of PICC Nurse
--- NOTE | 2021-05-15 11:10 | NUR ---
SW following. Discussed with RN, pt from home, room air, clear liquuid diet. GI following. Rapid COVID-19 negative. Pt has [facility] at home. SW will continue to follow.
--- NOTE | 2021-05-15 11:46 | NUR ---
Procedure: Following complete explanation of the PICC procedure including the indications, risks, and potential complications, informed consent was obtained. The possibility for infection was discussed along with signs, symptoms, and prevention. All the questions were answered. Written and verbal patient education was provided. Hand hygiene performed. Standardized central line checklist was utilized. The patient was placed in the supine position, the arm was prepped with chlorhexidine and patient draped with maximum sterile barrier. 5 mL 1% lidocaine was infiltrated into the skin to provide local anesthesia. A thorough assessment of left upper extremity completed. Using real-time ultrasound guidance and standardized micro puncture set, the basilic vein was punctured and a peel away sheath was placed using the modified Seldinger technique. A tip location device was used to ensure adequate catheter placement. The catheter was secured using a securement device and an antimicrobial patch was applied directly on the insertion site followed by a transparent dressing. All ports withdraw blood and flush without resistance. Patient tolerated the procedure without apparent complication(s). Single Lumen Power PICC placement successful and uncomplicated. Placement verified by EKG tip confirmation system and/or chest x-ray. Tip located in the CAJ. Complications: None
[2021-05-15] MEDS: PANTOPRAZOLE IV PUSH 40 MG VIAL. IVP SCH (12:37)
[2021-05-15 12:40] VITALS: BP 96/54
[2021-05-15] MEDS: INSULIN LISPRO 300 UNITS/3 ML VIAL. SQ SCH ×2 (12:49→17:00)
--- NOTE | 2021-05-15 13:02 | RAD ---
CT HEAD/BRAIN WO History: Reason: recurrent n/v, r/o intracranial cause / Spl. Instructions: / History: Comparison: None. Technique: Noncontrast CT imaging was performed of the head. Exposure: One or more of the following individualized dose reduction techniques were utilized for thi s examination: 1. Automated exposure control 2. Adjustment of the mA and/or kV according to patient size 3. Use of iterative reconstruction technique. Findings: No intracranial hemorrhage. No mass effect. No hydrocephalus. Extra-axial spaces are unremarkable. Imaged orbits are unremarkable. Minimal secretions within the left sphenoid sinus. Mastoid air cells are clear. No acute calvarial fracture. Impression: 1. No acute intracranial abnormality. Electronically signed by: Braeden Echevarria DO (05/15/2021 12:59 PM) [id number]
[2021-05-15 15:00] VITALS: BP 149/79
--- NOTE | 2021-05-15 15:12 | PDOC ---
Progress Note-Wound Care SUBJECTIVE The patient's nausea and vomiting has improved since she has started on IV medications. She states that she has difficulty taking pills. She has no complaints regarding her sacral ulcer. She had surgical debridement per Dr. Mills last week. OBJECTIVE Vital Signs Vital Signs Date Time Temp Pulse Resp B/P (MAP) Pulse Ox O2 Delivery O2 Flow Rate FiO2 05/14/21 15:17 99.2 121 16 169/97 (121) 100 Room Air 99.2 Vital Signs Date Time Temp Pulse Resp B/P (MAP) Pulse Ox O2 Delivery O2 Flow Rate FiO2 05/15/21 12:40 98.0 98 18 96/54 (68) 98 Room Air 98.0 Physical Exam: Her wound is clean. There is periosteum covering the exposed bone. Wound margins appear healthy. Periwound is normal. ASSESSMENT Sacral pressure ulcer status post I&D. She would benefit from vera flow instillation therapy to maintain wound cleanliness and stimulate wound healing. Problems: (1) Pressure ulcer of sacral region, stage 4 PLAN Vera flow instillation therapy over the weekend. GENOVEVA GARCIA MD May 15, 2021 15:12
--- NOTE | 2021-05-15 15:58 | NUR ---
Wound/Ostomy Care Wound Type/Assessment: Wound consult for sacral wound. Pt has stage IV sacral ulcer that was debrided by general surgery earlier this week. Cleansed, assessed and redressed wound. Treatment Recommendations/Plan: Applied veraflo wound vac with 40 ml NS for 5 min soak every 3 hours. Will reassess on Tuesday. Education provided: PU prevention, WC POC Offloading surface/device: TQ2H, side to side only unless eating. Recommended Referrals/Tests: Dr Ty assessed wound today. Discharge Recommendations for dressings: see above
--- NOTE | 2021-05-15 16:56 | PDOC ---
[facility] PROGRESS NOTE Date of Service DOS: DATE: 05/15/21 TIME: 16:46 Chief Complaint Chief Complaint Intractable nausea vomiting Sacral decubitus ulcervera flow installation this weekend Recovered Covid infection Mild acute electrolyte derangementhyponatremia, hypochloremia and hypomagnesemia likely due to acute volume depletion BOB due to vasomotor nephropathy History of Present Illness History of Present Illness 46-year-old female who survived COVID-19 after being on the ventilator several months ago. She also at that time had to have a trach and was dialyzed and had a temporary PEG tube. Now she has been doing better. She has been admitted a couple times to the hospital in the past few weeks. Most notably, I just discharged her yesterday after being admitted for resolving hypoglycemia and a coccygeal wound. She went for a debridement just a couple days ago. Yesterday when I saw her, she was doing well, wanted to go home. Apparently last night, she started developing nausea and vomiting, it was intractable. She tried taking the Zofran, I sent her home with, but that did not seem to help. 05/15/2021 No acute events overnight. Patient currently getting a PICC line. No concerns nursing at this time. We will try clear liquid diet and PPI for now per GI. W ound care has seen the patient and her sacral wound appears clean. There is exposed bone and the margins appear healthy. Vera flow installation therapy over the weekend. Vitals/I&O Vitals/I&O: Vital Signs Date Time Temp Pulse Resp B/P (MAP) Pulse Ox O2 Delivery O2 Flow Rate FiO2 05/15/21 16:07 20 100 Room Air 05/15/21 15:00 97.9 89 149/79 (102) 97.9 I & O 05/14/21 05/14/21 05/15/21 15:00 23:00 07:00 Intake Total 750 ml 25 ml Output Total 60 ml Balance 750 ml -35 ml Physical Exam General: Alert, Oriented X3, Cooperative Heart: Regular rate Lungs: Clear, Crackles Extremities: No clubbing Skin: No rashes Labs Labs: Laboratory Tests Test 05/14/21 19:22 05/14/21 21:00 05/14/21 21:20 05/14/21 23:30 Glucose (Fingerstick) 297 mg/dL (70-99) Sodium Level 134 mmol/L (136-145) Potassium Level 3.7 mmol/L (3.5-5.1) Chloride Level 96 mmol/L (98-107) Carbon Dioxide Level 28 mmol/L (21-32) Anion Gap 10 (6-14) Blood Urea Nitrogen 15 mg/dL (7-20) Creatinine 1.3 mg/dL (0.6-1.0) Estimated GFR (Cockcroft-Gault) 44.3 BUN/Creatinine Ratio 12 (6-20) Glucose Level 288 mg/dL (70-99) Calcium Level 10.0 mg/dL (8.5-10.1) Magnesium Level 1.6 mg/dL (1.8-2.4) Total Bilirubin 0.5 mg/dL (0.2-1.0) Aspartate Amino Transf (AST/SGOT) 22 U/L (15-37) Alanine Aminotransferase (ALT/SGPT) 26 U/L (14-59) Alkaline Phosphatase 233 U/L (46-116) Troponin I High Sensitivity 7 ng/L (4-50) Total Protein 8.0 g/dL (6.4-8.2) Albumin 3.9 g/dL (3.4-5.0) Albumin/Globulin Ratio 1.0 (1.0-1.7) Lipase 78 U/L (73-393) White Blood Count 12.2 x10^3/uL (4.0-11.0) Red Blood Count 3.18 x10^6/uL (3.50-5.40) Hemoglobin 9.4 g/dL (12.0-15.5) Hematocrit 27.5 % (36.0-47.0) Mean Corpuscular Volume 87 fL (79-100) Mean Corpuscular Hemoglobin 30 pg (25-35) Mean Corpuscular Hemoglobin Concent 34 g/dL (31-37) Red Cell Distribution Width 15.4 % (11.5-14.5) Platelet Count 432 x10^3/uL (140-400) Neutrophils (%) (Auto) 76 % (31-73) Lymphocytes (%) (Auto) 19 % (24-48) Monocytes (%) (Auto) 5 % (0-9) Eosinophils (%) (Auto) 0 % (0-3) Basophils (%) (Auto) 1 % (0-3) Neutrophils # (Auto) 9.2 x10^3/uL (1.8-7.7) Lymphocytes # (Auto) 2.3 x10^3/uL (1.0-4.8) Monocytes # (Auto) 0.6 x10^3/uL (0.0-1.1) Eosinophils # (Auto) 0.0 x10^3/uL (0.0-0.7) Basophils # (Auto) 0.1 x10^3/uL (0.0-0.2) Urine Collection Type Unknown Urine Color Yellow Urine Clarity Clear Urine pH 6.5 (<5.0-8.0) Urine Specific [place] 1.015 (1.000-1.030) Urine Protein 100 mg/dL (NEG-TRACE) Urine Glucose (UA) >=1000 mg/dL (NEG) Urine Ketones (Stick) 15 mg/dL (NEG) Urine Blood Negative (NEG) Urine Nitrite Negative (NEG) Urine Bilirubin Negative (NEG) Urine Urobilinogen Dipstick 0.2 mg/dL (0.2 mg/dL) Urine Leukocyte Esterase Negative (NEG) Urine RBC 0 /HPF (0-2) Urine WBC Rare /HPF (0-4) Urine Squamous Epithelial Cells Few /LPF Urine Bacteria 0 /HPF (0-FEW) Urine Mucus Slight /LPF Test 05/15/21 07:21 05/15/21 12:37 Glucose (Fingerstick) 244 mg/dL (70-99) 258 mg/dL (70-99) Assessment and Plan Assessmemt and Plan Problems Medical Problems: (1) Nausea & vomiting Status: Acute Comment Review of Relevant I have reviewed the following items mazin (where applicable) has been applied. Medications: Current Medications Medications (Trade) Dose Ordered Sig/Pepe Route PRN Reason Start Time Stop Time Status Last Admin Dose Admin Hydromorphone HCl (Dilaudid) 2 mg PRN Q2HR PRN IVP SEVERE PAIN 05/14/21 20:45 05/15/21 16:07 Prochlorperazine Edisylate (Compazine) 10 mg Q8HRS PRN IV NAUSEA/VOMITING- 2ND CHOICE 05/14/21 20:45 05/15/21 05:00 Ondansetron HCl (Zofran) 4 mg PRN Q6HRS PRN IVP NAUSEA/VOMITING 05/14/21 20:45 05/14/21 20:59 Dextrose/Lactated Ringer's 1,000 ml @ 75 mls/hr [id number] IV 05/14/21 20:45 05/15/21 07:56 Diphenhydramine HCl (Benadryl) 25 mg PRN QHS PRN IVP INSOMNIA 05/15/21 00:30 05/15/21 00:36 Insulin Human Lispro (HumaLOG) 0-7 UNITS TIDWMEALS SQ 05/15/21 12:00 05/15/21 12:49 Pantoprazole Sodium (PROTONIX VIAL for IV PUSH) 40 mg DAILYAC IVP 05/15/21 10:00 05/15/21 12:37 Justifications for Admission Other Justification SRIKANTH DAVIS MD May 15, 2021 16:56
[2021-05-15] MEDS ORDERED: MAGNESIUM SULFATE 2GM 50 ML IV ONE (17:00)
[2021-05-15 19:00] VITALS: BP 151/79
[2021-05-15 23:00] VITALS: BP 143/79
[2021-05-16] MEDS: IV DEXTROSE 5%-LACT RINGERS 1,000 ML IV SCH ×2 (06:29→20:17)
[2021-05-16 06:53] LABS: CALCIUM 8.3 mg/dL (8.5-10.1); MAGNESIUM 1.9 mg/dL (1.8-2.4); PHOSPHORUS 3.2 mg/dL (2.6-4.7); POTASSIUM 3.5 mmol/L (3.5-5.1)
[2021-05-16 06:58] LABS: BASO # 0.1 x10^3/uL (0.0-0.2); BASO % 1 % (0-3); EOS # 0.1 x10^3/uL (0.0-0.7); EOS % 1 % (0-3); HEMATOCRIT 24.9 % (36.0-47.0); HEMOGLOBIN 8.4 g/dL (12.0-15.5); LYMPH # 2.5 x10^3/uL (1.0-4.8); LYMPH % 31 % (24-48); MEAN CORPUSCULAR HEMOGLOBIN 29 pg (25-35); MEAN CORPUSCULAR HGB CONC 34 g/dL (31-37); MEAN CORPUSCULAR VOLUME 87 fL (79-100); MONO # 0.6 x10^3/uL (0.0-1.1); MONO % 7 % (0-9); NEUT # 4.9 x10^3/uL (1.8-7.7); NEUT % 60 % (31-73); PLATELET COUNT 355 x10^3/uL (140-400); RED BLOOD COUNT 2.86 x10^6/uL (3.50-5.40); RED CELL DISTRIBUTION WIDTH 15.9 % (11.5-14.5); WHITE BLOOD COUNT 8.2 x10^3/uL (4.0-11.0)
[2021-05-16 07:00] VITALS: BP 172/97
[2021-05-16] MEDS: PANTOPRAZOLE IV PUSH 40 MG VIAL. IVP SCH (07:53)
[2021-05-16] MEDS: HYDROmorphone 2 MG/ML VIAL IVP PRN ×4 (07:53→21:48)
[2021-05-16] MEDS: diphenhydrAMINE 50 MG/ML VIAL IVP PRN ×3 (07:55→21:47)
[2021-05-16] MEDS: ONDANSETRON PF 4 MG/2 ML VIAL. IVP PRN (07:55)
[2021-05-16] MEDS: INSULIN LISPRO 300 UNITS/3 ML VIAL. SQ SCH ×3 (08:15→16:50)
--- NOTE | 2021-05-16 10:20 | PDOC ---
[facility] PROGRESS NOTE Date of Service DOS: DATE: 05/16/21 TIME: 10:19 Chief Complaint Chief Complaint Intractable nausea vomiting Sacral decubitus ulcervera flow installation this weekend Recovered Covid infection Mild acute electrolyte derangementhyponatremia, hypochloremia and hypomagnesemia likely due to acute volume depletion BOB due to vasomotor nephropathy History of Present Illness History of Present Illness 05/16/2021 Patient seen and examined Discussed with RN Chart reviewed She seems to be back at her baseline We will try to discharge this afternoon She requested a prescription for Phenergan suppositories which I did provide 46-year-old female who survived COVID-19 after being on the ventilator several months ago. She also at that time had to have a trach and was dialyzed and had a temporary PEG tube. Now she has been doing better. She has been admitted a couple times to the hospital in the past few weeks. Most notably, I just discharged her yesterday after being admitted for resolving hypoglycemia and a coccygeal wound. She went for a debridement just a couple days ago. Yesterday when I saw her, she was doing well, wanted to go home. Apparently last night, she started developing nausea and vomiting, it was intractable. She tried taking the Zofran, I sent her home with, but that did not seem to help. 05/15/2021 No acute events overnight. Patient currently getting a PICC line. No concerns nursing at this time. We will try clear liquid diet and PPI for now per GI. Wound care has seen the patient and her sacral wound appears clean. There is exposed bone and the margins appear healthy. Vera flow installation therapy over the weekend. Vitals/I&O Vitals/I&O: Vital Signs Date Time Temp Pulse Resp B/P (MAP) Pulse Ox O2 Delivery O2 Flow Rate FiO2 05/16/21 07:53 95 Room Air 05/16/21 07:00 98.8 100 18 172/97 (122) 98.8 I & O 05/15/21 05/15/21 05/16/21 15:00 23:00 07:00 Intake Total 600 ml 520 ml 480 ml Output Total 1 ml Balance 600 ml 520 ml 479 ml Physical Exam General: Alert, Oriented X3, Cooperative Heart: Regular rate Lungs: Clear, Crackles Extremities: No clubbing Skin: No rashes Labs Labs: Laboratory Tests Test 05/15/21 12:37 05/15/21 17:05 05/15/21 20:39 05/16/21 06:35 Glucose (Fingerstick) 258 mg/dL (70-99) 172 mg/dL (70-99) 292 mg/dL (70-99) White Blood Count 8.2 x10^3/uL (4.0-11.0) Red Blood Count 2.86 x10^6/uL (3.50-5.40) Hemoglobin 8.4 g/dL (12.0-15.5) Hematocrit 24.9 % (36.0-47.0) Mean Corpuscular Volume 87 fL (79-100) Mean Corpuscular Hemoglobin 29 pg (25-35) Mean Corpuscular Hemoglobin Concent 34 g/dL (31-37) Red Cell Distribution Width 15.9 % (11.5-14.5) Platelet Count 355 x10^3/uL (140-400) Neutrophils (%) (Auto) 60 % (31-73) Lymphocytes (%) (Auto) 31 % (24-48) Monocytes (%) (Auto) 7 % (0-9) Eosinophils (%) (Auto) 1 % (0-3) Basophils (%) (Auto) 1 % (0-3) Neutrophils # (Auto) 4.9 x10^3/uL (1.8-7.7) Lymphocytes # (Auto) 2.5 x10^3/uL (1.0-4.8) Monocytes # (Auto) 0.6 x10^3/uL (0.0-1.1) Eosinophils # (Auto) 0.1 x10^3/uL (0.0-0.7) Basophils # (Auto) 0.1 x10^3/uL (0.0-0.2) Sodium Level 137 mmol/L (136-145) Potassium Level 3.5 mmol/L (3.5-5.1) Chloride Level 102 mmol/L (98-107) Carbon Dioxide Level 29 mmol/L (21-32) Anion Gap 6 (6-14) Blood Urea Nitrogen 9 mg/dL (7-20) Creatinine 1.0 mg/dL (0.6-1.0) Estimated GFR (Cockcroft-Gault) 60.0 Glucose Level 235 mg/dL (70-99) Calcium Level 8.3 mg/dL (8.5-10.1) Phosphorus Level 3.2 mg/dL (2.6-4.7) Magnesium Level 1.9 mg/dL (1.8-2.4) Test 05/16/21 07:27 Glucose (Fingerstick) 229 mg/dL (70-99) Assessment and Plan Assessmemt and Plan Problems Medical Problems: (1) Nausea & vomiting Status: Acute Intractable nausea vomiting Sacral decubitus ulcervera flow installation this weekend Recovered Covid infection Mild acute electrolyte derangementhyponatremia, hypochloremia and hypomagnesemia likely due to acute volume depletion BOB due to vasomotor nephropathy Plan I left a prescription for Phenergan suppositories We will go ahead and discharge Comment Review of Relevant I have reviewed the following items mazin (where applicable) has been applied. Medications: Current Medications Medications (Trade) Dose Ordered Sig/Pepe Route PRN Reason Start Time Stop Time Status Last Admin Dose Admin Insulin Human Lispro (HumaLOG) 0-7 UNITS TIDWMEALS SQ 05/15/21 12:00 05/16/21 08:15 Magnesium Sulfate 50 ml @ 25 mls/hr 1X ONCE IV 05/15/21 17:00 05/15/21 18:59 DC 05/15/21 19:50 Justifications for Admission Other Justification DIANELYS BLACKMON III DO May 16, 2021 10:20
--- NOTE | 2021-05-16 10:43 | DS ---
DATE OF DISCHARGE: 05/16/2021 ADMISSION DIAGNOSES: Intractable nausea, vomiting and acute kidney injury. DISCHARGE DIAGNOSES: Resolving intractable nausea and vomiting, resolving acute kidney injury, recent COVID-19, recent respiratory failure, history of tracheostomy that has been removed, history of percutaneous endoscopic gastrostomy that has been removed, history of dialysis x 1, depression, anxiety, diabetes, chronic pain, gastroesophageal reflux disease, history of electrolyte disturbance with hyponatremia and hypokalemia, chronic kidney disease stage 3, gluteal ulcer that has been debrided about 4 days ago, hypertension, hyperlipidemia, breast augmentation, abdominoplasties, right knee surgery, cholecystectomy and overweight. CONSULTATIONS: Wound Care team. PROCEDURES: None. HOSPITAL COURSE: The patient is a pleasant, middle-aged female who we discharged a few days ago and after she got home, she developed nausea and vomiting. We had to readmit the patient for fluids and p.r.n. antiemetics and to trend her labs. Today, I saw her and examined her. She is back to her baseline. Creatinine is down to 1. She looks great. She wants to go home. She did request a prescription for Phenergan suppositories, which I did provide. DISPOSITION: Home. ACTIVITY: As tolerated. DIET: Low sodium. DISCHARGE MEDICATIONS: Phenergan suppositories 25 mg every 8 hours p.r.n., atorvastatin 40 mg a day, albuterol, fluoxetine 20 mg a day, hydroxyzine 10 mg t.i.d., insulin sliding scale and Lantus 15 units at bedtime, Tradjenta 5 mg a day, lisinopril 5 mg a day, Zofran 4 mg every 6 hours p.r.n., oxycodone 10 mg every 6 hours, Protonix 40 mg a day and Ambien 5 mg at bedtime. Total time [address]: Mague TID: [id number]
[2021-05-16 11:00] VITALS: BP 143/75
[2021-05-16 15:00] VITALS: BP 161/85
[2021-05-16 19:00] VITALS: BP 143/54
[2021-05-16 23:00] VITALS: BP 131/62
[2021-05-17] VITALS (7 sets, daily range): BP systolic 115–174; BP diastolic 50–89
[2021-05-17] MEDS: HYDROmorphone 2 MG/ML VIAL IVP PRN ×7 (01:51→21:28)
[2021-05-17] MEDS: diphenhydrAMINE 50 MG/ML VIAL IVP PRN ×2 (08:12→21:28)
[2021-05-17] MEDS: PANTOPRAZOLE IV PUSH 40 MG VIAL. IVP SCH (08:12)
[2021-05-17] MEDS: IV DEXTROSE 5%-LACT RINGERS 1,000 ML IV SCH ×2 (08:26→21:32)
[2021-05-17] MEDS: INSULIN LISPRO 300 UNITS/3 ML VIAL. SQ SCH ×3 (08:38→17:32)
--- NOTE | 2021-05-17 12:39 | PDOC ---
[facility] PROGRESS NOTE Date of Service DOS: DATE: 05/17/21 TIME: 12:38 Chief Complaint Chief Complaint Intractable nausea vomiting Sacral decubitus ulcervera flow installation this weekend Recovered Covid infection Mild acute electrolyte derangementhyponatremia, hypochloremia and hypomagnesemia likely due to acute volume depletion BOB due to vasomotor nephropathy History of Present Illness History of Present Illness 05/17/2021 Patient seen and examined She guarded wound VAC to the gluteal/coccyx region yesterday Discussed with RN Chart reviewed Clinically she looks good 05/16/2021 Patient seen and examined Discussed with RN Chart reviewed She seems to be back at her baseline We will try to discharge this afternoon She requested a prescription for Phenergan suppositories which I did provide 46-year-old female who survived COVID-19 after being on the ventilator several months ago. She also at that time had to have a trach and was dialyzed and had a temporary PEG tube. Now she has been doing better. She has been admitted a couple times to the hospital in the past few weeks. Most notably, I just discharged her yesterday after being admitted for resolving hypoglycemia and a coccygeal wound. She went for a debridement just a couple days ago. Yesterday when I saw her, she was doing well, wanted to go home. Apparently last night, she started developing nausea and vomiting, it was intractable. She tried taking the Zofran, I sent her home with, but that did not seem to help. 05/15/2021 No acute events overnight. Patient currently getting a PICC line. No concerns nursing at this time. We will try clear liquid diet and PPI for now per GI. Wo und care has seen the patient and her sacral wound appears clean. There is exposed bone and the margins appear healthy. Vera flow installation therapy over the weekend. Vitals/I&O Vitals/I&O: Vital Signs Date Time Temp Pulse Resp B/P (MAP) Pulse Ox O2 Delivery O2 Flow Rate FiO2 05/17/21 12:06 19 93 Room Air 05/17/21 07:00 98.2 96 143/70 (94) 98.2 I & O 05/16/21 05/16/21 05/17/21 15:00 23:00 07:00 Intake Total 240 ml 120 ml Output Total 1000 ml Balance 240 ml 120 ml -1000 ml Physical Exam General: Alert, Oriented X3, Cooperative Heart: Regular rate Lungs: Clear, Crackles Extremities: No clubbing Skin: No rashes Labs Labs: Laboratory Tests Test 05/16/21 16:46 05/16/21 20:20 05/17/21 08:10 05/17/21 12:02 Glucose (Fingerstick) 89 mg/dL (70-99) 205 mg/dL (70-99) 242 mg/dL (70-99) 229 mg/dL (70-99) Assessment and Plan Assessmemt and Plan Problems Medical Problems: (1) Nausea & vomiting Status: Acute Intractable nausea vomiting Sacral decubitus ulcervera flow installation this weekend Recovered Covid infection Mild acute electrolyte derangementhyponatremia, hypochloremia and hypomagnesemia likely due to acute volume depletion BOB due to vasomotor nephropathy Plan Wound care Wound VAC Home meds Proton pump inhibitors Encourage p.o. intake As needed antiemetics DVT prophylaxis Full code Appreciate subspecialist input (GI and wound care) Hope to discharge tomorrow with wound VAC Comment Review of Relevant I have reviewed the following items mazin (where applicable) has been applied. Medications: Current Medications Medications (Trade) Dose Ordered Sig/Pepe Route PRN Reason Start Time Stop Time Status Last Admin Dose Admin Diphenhydramine HCl (Benadryl) 25 mg PRN Q6HRS PRN IVP ITCHING 05/16/21 13:00 05/16/21 12:59 Justifications for Admission Other Justification DIANELYS BLACKMON III DO May 17, 2021 12:39
[2021-05-18] MEDS: HYDROmorphone 2 MG/ML VIAL IVP PRN ×4 (02:49→14:14)
[2021-05-18 03:05] VITALS: BP 198/83
[2021-05-18 07:00] VITALS: BP 169/92
[2021-05-18] MEDS ORDERED: PANTOPRAZOLE 40 MG TABLET.DR. PO SCH (07:30)
[2021-05-18] MEDS: INSULIN LISPRO 300 UNITS/3 ML VIAL. SQ SCH ×3 (08:41→17:15)
--- NOTE | 2021-05-18 09:54 | PDOC ---
Date of Service: DATE: 05/18/21 TIME: 09:51 Subjective: Subjective: Didn't really like eggs for breakfast but no n/v or abd pain. Objective: Vital Signs: Vital Signs Date Time Temp Pulse Resp B/P (MAP) Pulse Ox O2 Delivery O2 Flow Rate FiO2 05/18/21 08:32 Room Air 05/18/21 07:00 98.4 101 16 169/92 (117) 90 98.4 Labs: Laboratory Tests Test 05/17/21 12:02 05/17/21 16:51 05/17/21 20:25 05/18/21 07:49 Glucose (Fingerstick) 229 mg/dL 335 mg/dL 126 mg/dL 192 mg/dL PE: GEN: NAD LUNGS: CTAB HEART: borderline tachycardic ABD: S/ND/NT NEURO/PSYCH: A & O 3 A/P: Recurrent vomiting - none since admission HTN, sacral wound H/o COVID -- Continue PPI. DC per primary. Justicifation of Admission Dx: Justifications for Admission: Justification of Admission Dx: N/A JANELLE MONTENEGRO May 18, 2021 09:53
--- NOTE | 2021-05-18 10:52 | PDOC ---
[employer] PROGRESS NOTE Date of Service DOS: DATE: 05/18/21 TIME: 10:51 Chief Complaint Chief Complaint Intractable nausea vomiting Sacral decubitus ulcervera flow installation this weekend Recovered Covid infection Mild acute electrolyte derangementhyponatremia, hypochloremia and hypomagnesemia likely due to acute volume depletion BOB due to vasomotor nephropathy History of Present Illness History of Present Illness 05/18/2021 Patient seen and examined She seems to be at her baseline No more nausea vomiting She has a wound VAC in place Discussed with RN Discussed with case management We hope to discharge with home health later today if possible 05/17/2021 Patient seen and examined She guarded wound VAC to the gluteal/coccyx region yesterday Discussed with RN Chart reviewed Clinically she looks good 05/16/2021 Patient seen and examined Discussed with RN Chart reviewed She seems to be back at her baseline We will try to discharge this afternoon She requested a prescription for Phenergan suppositories which I did provide 46-year-old female who survived COVID-19 after being on the ventilator several months ago. She also at that time had to have a trach and was dialyzed and had a temporary PEG tube. Now she has been doing better. She has been admitted a couple times to the hospital in the past few weeks. Most notably, I just discharged her yesterday after being admitted for resolving hypoglycemia and a coccygeal wound. She went for a debridement just a couple days ago. Yesterday when I saw her, she was doing well, wanted to go home. Apparently last night, she started developing nausea and vomiting, it was intractable. She tried taking the Zofran, I sent her home with, but that did not seem to help. 05/15/2021 No acute events overnight. Patient currently getting a PICC line. No concerns nursing at this time. We will try clear liquid diet and PPI for now per GI. Wound care has seen the patient and her sacral wound appears clean. There is exposed bone and the margins appear healthy. Vera flow installation therapy over the weekend. Vitals/I&O Vitals/I&O: Vital Signs Date Time Temp Pulse Resp B/P (MAP) Pulse Ox O2 Delivery O2 Flow Rate FiO2 05/18/21 08:32 Room Air 05/18/21 07:00 98.4 101 16 169/92 (117) 90 98.4 I & O 05/17/21 05/17/21 05/18/21 15:00 23:00 07:00 Output Total 500 ml 250 ml 1600 ml Balance -500 ml -250 ml -1600 ml Physical Exam General: Alert, Oriented X3, Cooperative Heart: Regular rate Lungs: Clear, Crackles Extremities: No clubbing Skin: No rashes Labs Labs: Laboratory Tests Test 05/17/21 12:02 05/17/21 16:51 05/17/21 20:25 05/18/21 07:49 Glucose (Fingerstick) 229 mg/dL (70-99) 335 mg/dL (70-99) 126 mg/dL (70-99) 192 mg/dL (70-99) Assessment and Plan Assessmemt and Plan Problems Medical Problems: (1) Nausea & vomiting Status: Acute Intractable nausea vomiting Sacral decubitus ulcervera flow installation this weekend Recovered Covid infection Mild acute electrolyte derangementhyponatremia, hypochloremia and hypomagnesemia likely due to acute volume depletion BOB due to vasomotor nephropathy Plan Hope to discharge with home health later today if possible For now continue the following; Wound care Wound VAC Home meds Proton pump inhibitors Encourage p.o. intake As needed antiemetics DVT prophylaxis Full code Appreciate subspecialist input (GI and wound care) Comment Review of Relevant I have reviewed the following items mazin (where applicable) has been applied. Medications: Current Medications Medications (Trade) Dose Ordered Sig/Pepe Route PRN Reason Start Time Stop Time Status Last Admin Dose Admin Pantoprazole Sodium (Protonix) 40 mg DAILYAC PO 05/18/21 07:30 05/18/21 08:32 Justifications for Admission Other Justification DIANELYS BLACKMON III DO May 18, 2021 10:52
--- NOTE | 2021-05-18 10:53 | SNU/HH DC ---
DISCHARGE WITH HOME HEALTH DISCHARGE INFORMATION: Final Diagnosis: Problems Medical Problems: (1) Nausea & vomiting Status: Acute Condition on Discharge: Stable CODE STATUS: Code Status: Full HOME HEALTH: Face to Face: I certify this patient is under my care and that I, or a nurse practitioner or physician's executive staff assistant working with me, had a face to face encounter that meets the physician face to face encounter requirements with this patient on []. 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 POST DISCHARGE ORDERS: Activity Instructions for Disc: No restrictions, Activity as tolerated Weight Bearing Status after Di: No restrictions, As tolerated DIET AFTER DISCHARGE: ADA Wound/Incision Care: Other, see below CHECKS AFTER DISCHARGE: Checks after discharge: Check blood press - daily, Check blood sugar, ac/hs, Check your Temp as needed TREATMENT/EQUIPMENT ORDERS: Adaptive Equipment Issued: None CERTIFICATION STATEMENT: Certification Statement: Certification Statement: Based on the above finding, I certify that this patient is confined to the home and needs intermittent halfway care, physical therapy and/or speech therapy, or continues to need occupational therapy.~ This patient is under my care, and I have initiated the establishment of the plan of care.~ This patient will be followed by myself or a community physician who will periodically review the plan of care. Home Meds Active Scripts Oxycodone/Apap 10-325 (PERCOCET 10-325 MG TABLET ) 1 Each Tablet, 1 TAB PO PRN BID PRN for PAIN MDD 2 Tablet(s) for 30 Days, #60 TAB 0 Refills Prov:CASTLE,NIAL K III DO 05/13/21 Zolpidem Tartrate (AMBIEN) 5 Mg Tablet, 5 MG PO PRN QHS PRN for INSOMNIA, MAY REPEAT IN 1HR for 30 Days, #6 TAB Prov:LEO GROSS MD 05/08/21 Hydroxyzine Hcl (HYDROXYZINE HCL) 10 Mg Tablet, 10 MG PO PRN TID PRN for ANXIETY for 30 Days, #30 TAB 5 Refills Prov:LEO GROSS MD 05/08/21 Linagliptin (TRADJENTA) 5 Mg Tablet, 5 MG PO DAILY for DM2 for 30 Days, #30 TAB 5 Refills Prov:LEO GROSS MD 05/08/21 Insulin Glargine,Hum.rec.anlog (LANTUS) 100 Unit/1 Ml Vial, 15 UNIT SQ QHS for . for 30 Days, #1 EACH Prov:LEO GROSS MD 05/08/21 Insulin Aspart (NOVOLOG FLEXPEN) 100 Unit/1 Ml Insuln.pen, 0-9 UNITS SQ TIDACHC for Diabetes for 30 Days, #30 SYR 0 Refills Prov:ELO GROSS MD 05/08/21 Ondansetron Hcl (ZOFRAN) 4 Mg Tablet, 1 TAB PO Q6HRS for nausea, #20 TAB Prov:DIANELYS BLACKMON K III DO 05/01/21 Pantoprazole Sodium (PANTOPRAZOLE SODIUM ) 40 Mg Tablet.dr, 40 MG PO DAILYAC for . for 30 Days, #30 TAB.SR Prov:DIANELYS BLACKMON K III DO 05/01/21 Fluoxetine Hcl (FLUOXETINE HCL) 20 Mg/5 Ml Solution, 20 MG PEG DAILY for . for 30 Days, #30 MISC Prov:DIANELYS BLACKMON K III DO 05/01/21 Albuterol Sulfate (Proair Hfa) 8.5 Gm Hfa.aer.ad, 2.5 MG NEB PRN Q4HRS PRN for SHORTNESS OF BREATH for 14 Days, #1 INHALER Prov:DIANELYS BLACKMON K III DO 05/01/21 Reported Medications Lisinopril (LISINOPRIL) 5 Mg Tablet, 1 TAB PO DAILY for Prevention, #30 TAB 5 Refills 02/07/21 Atorvastatin Calcium (ATORVASTATIN CALCIUM) 40 Mg Tablet, 40 MG PO HS for FOR CHOLESTEROL, #30 TAB 0 Refills 04/09/15 DIANELYS BLACKMON K III DO May 18, 2021 10:53
[2021-05-18 11:00] VITALS: BP 135/78
--- NOTE | 2021-05-18 11:15 | DS ---
DATE OF DISCHARGE: 05/18/2021 ADMITTING DIAGNOSES: Intractable nausea and vomiting. DISCHARGE DIAGNOSES: 1. Resolving intractable nausea and vomiting. 2. Status post recent debridement of a buttock/sacral wound. 3. History of respiratory failure a couple of months ago from COVID-19. She was intubated at that time and required tracheostomy. 4. History of percutaneous endoscopic gastrostomy placement that has been removed. 5. Resolving hyponatremia, history of hypokalemia, chronic kidney disease, diabetes, hypertension, hyperlipidemia, breast augmentation and abdominoplasty, right knee surgery, cholecystectomy and overweight. CONSULTS: GI. PROCEDURES: Wound VAC placement. HOSPITAL COURSE: The patient is a pleasant, middle-aged female who presented with intractable nausea and vomiting. We have just discharged her a day prior to this and she was doing well, but then developed nausea and vomiting. We admitted the patient, gave her IV fluids, consulted GI. We also consulted the Wound Care team. They decided to go ahead and placed a wound VAC on her decubitus ulcers on her buttocks. Over the past few days, she has returned to baseline. Today, I saw and examined her. She is doing well and wants to go home. We are going to discharge with close outpatient followup. DISPOSITION: Home. ACTIVITY: As tolerated. DIET: Low sodium. MEDICATIONS: Phenergan suppositories 25 mg q. 8 p.r.n., albuterol, Prozac 20 a day, hydroxyzine 10 t.i.d., insulin sliding scale and Lantus 15 at bedtime, Tradjenta 5 a day, lisinopril 5 a day, Zofran 4 q. 6 p.r.n., oxycodone 10 q. 6 p.r.n., Protonix 40 a day and Ambien 5 at bedtime. TOTAL TIME: 32 minutes. LUIS/KADEEM DR: LUIS/riley TID: [id number]
--- NOTE | 2021-05-18 11:39 | NUR ---
SW following. Discussed with RN, pt from home, room air, low sodium diet. COVID-19 negative. Discharge order for home with [facility]. Pt needs home woundvac. Wound care to see pt prior to discharge. Surya Verma RN notified.
[2021-05-18] MEDS: IV DEXTROSE 5%-LACT RINGERS 1,000 ML IV SCH (11:45)
[2021-05-18] MEDS: diphenhydrAMINE 50 MG/ML VIAL IVP PRN (11:45)
--- NOTE | 2021-05-18 14:38 | NUR ---
Wound/Ostomy Care Wound Type/Assessment: Wound consult for sacral wound. Pt has stage IV sacral ulcer that was debrided by general surgery earlier this week. Cleansed, assessed and redressed wound. Treatment Recommendations/Plan: Cleanse wound, Apply NPWT. Black foam, 125 mmHg continuous pressure, change Tuesday and . Education provided: PU prevention, WC POC Offloading surface/device: TQ2H, side to side only unless eating. Recommended Referrals/Tests: HHRN to change dressing on Discharge Recommendations for dressings: see above
[2021-05-18 15:00] VITALS: BP 142/82
--- NOTE | 2021-05-18 18:00 | NUR ---
Discharge Note: Patient was discharged home with home health services, and wound vac. Patients left upper arm PICC was discontinued without any complications by RN. Patient was given discharge summary/instructions, follow-up, prescription and educational material. Patients at the bedside asking questions about wound and wound vac, upset because this is the first time he has seen the wound and it is bigger than before. asked for surgeons and wound cares number, numbers were given to patient. Patient was taken down to the main entrance with all personal belongings via wheelchair accompanied by DEJAH Guerra where would pull the car up to take patient home.
== END 2021-05-18 18:00 | disposition home health service (06) | DRG 683 ==
LOC: ER 15:02 → ED HOLD 15:57 → 5 SOUTH 18:20 → OBSVTOIN 05-15 15:22
PROVIDERS: ADMIT Internal Medicine; ATTEND Internal Medicine
DX: N17.0 Acute kidney failure with tubular necrosis (principal); E87.1 Hypo-osmolality and hyponatremia; E11.22 Type 2 diabetes mellitus with diabetic chronic kidney disease; E11.649 Type 2 diabetes mellitus with hypoglycemia without coma; E78.00 Pure hypercholesterolemia, unspecified; E78.5 Hyperlipidemia, unspecified; E83.42 Hypomagnesemia; E86.9 Volume depletion, unspecified; E87.8 Other disorders of electrolyte and fluid balance, not elsewhere classified; I12.9 Hypertensive chronic kidney disease with stage 1 through stage 4 chronic kidney disease, or unspecified chronic kidney disease; J45.909 Unspecified asthma, uncomplicated; L89.309 Pressure ulcer of unspecified buttock, unspecified stage; N18.30 Chronic kidney disease, stage 3 unspecified; Z82.49 Family history of ischemic heart disease and other diseases of the circulatory system; Z86.16 Personal history of COVID-19; Z90.710 Acquired absence of both cervix and uterus; Z93.0 Tracheostomy status; Z93.1 Gastrostomy status; F32.A Depression, unspecified; F41.9 Anxiety disorder, unspecified; G89.29 Other chronic pain; K21.9 Gastro-esophageal reflux disease without esophagitis; Z90.49 Acquired absence of other specified parts of digestive tract; Z88.2 Allergy status to sulfonamides; Z88.0 Allergy status to penicillin; Z91.013 Allergy to seafood; L89.159 Pressure ulcer of sacral region, unspecified stage
CPT/HCPCS: 36415; 36569; 70450; 74022; 80048; 80053; 81001; 82962; 83690; 83735; 84100; 84484; 85025; 87426; 93005; 96374; C9113; G0378; G0379; J0780; J1170; J1200; J1815; J2405; J3010; J3475; J7030; J7121; U0003; U0005; 99285-25